=== PATIENT | female | born 1970 | race Caucasian/White ===

== ENCOUNTER 2022-11-21 15:08 | Outpatient (OUT) | payer OTHER, MEDICAID, SELFPAY ==
[2022-11-21 15:32] LABS: Bilirubin Urine NEGATIVE (NEGATIVE); Blood Urine TRACE-I (NEGATIVE); Clarity Urine CLEAR (CLEAR); Color Urine YELLOW (YELLOW); Glucose Urine UA NEGATIVE (NEGATIVE); Ketones Urine NEGATIVE (NEGATIVE); Leukocyte Esterase Urine NEGATIVE (NEGATIVE); Nitrite Urine NEGATIVE (NEGATIVE); Protein Urine NEGATIVE (NEG/TRACE); Urobilinogen Urine 0.2 EU/dL (0.2-1.0); pH Urine 6.5 (5.0-9.0)
[2022-11-21 15:37] LABS: Hematocrit 38.1 % (36.0-48.0); Hemoglobin 11.9 g/dL (12.0-16.0); Mean Corpuscular HGB Conc 31.2 g/dL (29.9-35.2); Mean Corpuscular Hemoglobin 27.9 pg (26.7-34.0); Mean Corpuscular Volume 89.2 fL (81.0-99.0); Mean Platelet Volume 10.5 fL (9.5-13.5); Platelet Count 267 10^3/uL (150-450); Red Blood Count 4.27 10^6/uL (4.20-5.40); Red Cell Distribution Width 14.2 % (11.0-15.0); White Blood Count 5.3 10^3/uL (4.0-11.0)
[2022-11-21 15:47] LABS: Protein Creatinine Ratio Urine 0.07; Total Protein Urine Random 12.6 mg/dL (<=11.9)
[2022-11-21 16:07] LABS: Percent Iron Saturation 10.5 %
[2022-11-21 16:09] LABS: Alanine Aminotransferase 32 U/L (14-59); Albumin Globulin Ratio 1.1; Alkaline Phosphatase 77 U/L (46-116); Aspartate Amino Transferase 23 U/L (15-37); BUN Creatinine Ratio 23.1; Bilirubin Total 0.2 mg/dL (0.2-1.0); Calcium 9.4 mg/dL (8.5-10.1); Carbon Dioxide 28.8 mmol/L (21.0-32.0); Chloride 109 mmol/L (98-107); Estimated GFR (African America 57 (>=60); Estimated GFR (Non-African Ame 47 (>=60); Globulin 3.5 g/dL; Glucose 105 mg/dL (74-106); Phosphorus 3.4 mg/dL (2.6-4.7); Potassium 3.8 mmol/L (3.5-5.1); Sodium 144 mmol/L (136-145); Total Protein 7.5 g/dL (6.4-8.2); Uric Acid 6.4 mg/dL (2.6-6.0)
[2022-11-22 11:09] LABS: PTH, Intact 22 pg/mL (15-65)
== END 2022-11-21 15:09 | disposition home or self-care (01) ==
LOC: LAB 15:12
PROVIDERS: PCP Nurse Practitioner; Visit Provider Internal Medicine Nephrology
DX: I12.9 Hypertensive chronic kidney disease with stage 1 through stage 4 chronic kidney disease, or unspecified chronic kidney disease (principal); N18.32 Chronic kidney disease, stage 3b; E11.21 Type 2 diabetes mellitus with diabetic nephropathy; R60.0 Localized edema; E78.5 Hyperlipidemia, unspecified
CPT/HCPCS: 36415; 80053; 81003; 82570; 82607; 82728; 82746; 83540; 83550; 83735; 83970; 84100; 84156; 84550; 85027

== ENCOUNTER 2022-11-25 09:57 | Outpatient (OUT) | payer OTHER, MEDICAID, SELFPAY ==
--- NOTE | 2022-11-25 10:03 | US_ITS ---
The [address] [address] Patient Name: SHARLENE HUMPHREYS MRN: [id number] date: 1970 Sex: F Assigned Patient Location: US Current Patient Location: US Accession/Order Number: [id number] Exam Date: 11/25/2022 10:05 Report Date: 11/25/2022 17:01 At the request of: AMNA VALLEJO Procedure: US renal BI Ultrasound kidneys, bilateral HISTORY: Chronic kidney disease stage 3 N18.32 COMPARISON: None. TECHNIQUE: Transabdominal ultrasound imaging of both kidneys was performed. FINDINGS: Right kidney demonstrates normal echogenicity with significant cortical thinning and scarring throughout. The right kidney measures 10.7 x 5.5 x 4.3 cm. There is no hydronephrosis of right kidney. The left kidney measures 11.3 x 5.3 x 6.0 cm. There is mild cortical lobulation and minimal scarring. No hydronephrosis of left kidney. No discrete renal lesion or renal stone is seen. The bladder is incompletely distended and suboptimally evaluated with prevoid volume at 103 cc. US/US renal BI IMPRESSION: 1. Significant cortical thinning and scarring of the right kidney, mild cortical lobulation and minimal scarring of left kidney. 2. Negative for hydronephrosis, structural renal lesion, or renal stone by ultrasound. 3. Incompletely distended bladder. Electronically authenticated by: BREANA PATTERSON Date: 11/25/2022 17:01
== END 2022-11-25 09:58 | disposition home or self-care (01) ==
LOC: US 09:57
PROVIDERS: PCP Nurse Practitioner; Visit Provider Internal Medicine Nephrology
DX: E78.2 Mixed hyperlipidemia (principal); I12.9 Hypertensive chronic kidney disease with stage 1 through stage 4 chronic kidney disease, or unspecified chronic kidney disease; N18.32 Chronic kidney disease, stage 3b; E11.21 Type 2 diabetes mellitus with diabetic nephropathy; R60.0 Localized edema
CPT/HCPCS: 36415; 76775; 80061

== ENCOUNTER 2022-11-25 10:29 | Outpatient (OUT) | payer OTHER, MEDICAID, SELFPAY ==
[2022-11-25 11:39] LABS: Chol HDL Ratio 3.3; Cholesterol 144 mg/dL (<=200); HDL Cholesterol 44 mg/dL (40-60); Triglycerides 153 mg/dL (<=150); VLDL CHOLESTEROL 30.6 mg/dL
== END 2022-11-25 10:30 | disposition home or self-care (01) ==
LOC: LAB 10:32
PROVIDERS: PCP Nurse Practitioner; Visit Provider Nurse Practitioner Acute Care
DX: E78.2 Mixed hyperlipidemia (principal)
CPT/HCPCS: 36415; 80061

== ENCOUNTER 2022-11-27 12:58 | Outpatient (OUT) | payer OTHER, MEDICAID, SELFPAY ==
--- NOTE | 2022-11-27 13:50 | CA_ITS ---
Patient Name Site Name SHARLENE HUMPHREYS The [facility] Account No Medical Record Number Age Sex Date Time [id number] [facility]:[id number] F 11/27/2022 13:12 At the Request Of JONATHAN SMALL ECHOCARDIOGRAM REPORT PROCEDURE: CA ECHO DOPPLER COMPLETE INDICATIONS: Shortness of breath COMPARISON: None. DESCRIPTION: COMPLETE ECHOCARDIOGRAM Real-time transthoracic echocardiography with 2D, M-mode, spectral and color flow Doppler performed. QUALITY: Technical quality was good. LEFT VENTRICLE: Moderate dilatation. Mild concentric left ventricular hypertrophy. Normal systolic function. LV EF: Estimated left ventricular ejection fraction is 65%. DIASTOLIC: Grade II diastolic dysfunction. ATRIAL SEPTUM: LEFT ATRIUM: Severe dilatation. RIGHT ATRIUM: Mild dilatation. RIGHT VENTRICLE: Mild dilatation. Normal right ventricular systolic function. TRICUSPID VALVE: Normal mobility and thickness. No stenosis with trivial regurgitation. Mild pulmonary hypertension. RVSP 40 mmHg MITRAL VALVE: Normal mobility and thickness. No evidence of mitral valve stenosis. There is no mitral annular calcification. Mild mitral regurgitation. AORTIC VALVE: Normal trileaflet appearance. No visible sclerosis. Normal leaflet mobility. No evidence of aortic valve stenosis. No aortic regurgitation. AORTIC ROOT: Normal diameter and appearance. Normal size ascending aorta measuring 3.6 cm. PULMONIC VALVE: Normal thickness and mobility. No stenosis. Trivial regurgitation. PERICARDIUM: Trivial pericardial effusion. IVC: Collapses with inspirations. Normal size. PLEURA: CONCLUSION: 1. Mild concentric left ventricular hypertrophy with normal systolic function. LVEF is 65%. 2. Grade 2 diastolic dysfunction. 3. Mildly dilated right ventricle with normal systolic function. 4. Mild mitral regurgitation. 5. Mildly elevated right-sided pressures. Adult Echocardiography Procedure Report Left Ventricle LVEDD (3.7 - 5.6 cm): 6.37 cm LVESD (2.2 - 4.0 cm): 3.89 cm LVIVS thickness (0.6 - 1.2 cm): 1.12 cm LVPW thickness (0.5 - 1.0 cm): 1.09 cm e': 0.08 m/s E - e': 15.19 LVOT Max Gradient: 5.90 mm[Hg] LVOT Area (cm2): 1.21 m/s Peak Velocity (LVOT): 1.21 m/s Mean Velocity (LVOT): 0.85 m/s LVOT Diameter 2.00 cm Left Ventricular Ejection Fraction: 65 % Left Atrium LA Volume Index (2D A2C): 56.92 ml/m2 Left Atrium Systolic Dimension: 4.86 cm Mitral Valve MV E to A Ratio: 1.15 Mitral Valve A-Wave Peak Velocity: 1.06 m/s Mitral Valve E-Wave Peak Velocity: 1.22 m/s Right Ventricle RV Internal Diastolic Dimension: 4.31 cm Aorta AO Root Diam: 3.05 cm Ascending Ao Diam: 3.63 cm Aortic Valve AoV Area (Peak Gabo): 1.88 cm2, 1.88 cm2 AoV Area (VTI): 1.87 cm2, 1.87 cm2 Peak Velocity(Antegrade Flow): 2.03 m/s Peak Gradient(Antegrade Flow): 16.48 mm[Hg] Mean Velocity(Antegrade Flow): 1.37 m/s Mean Gradient(Antegrade Flow): 8.66 mm[Hg] Velocity Time Integral: 52.84 cm Tricuspid Valve Peak Velocity (Regurgitant Flow): 3.25 m/s, 2.64 m/s, 2.87 m/s, 3.04 m/s Pulmonic Valve Mean Gradient: 3.17 mm[Hg], 3.37 mm[Hg] Mean Velocity: 0.84 m/s, 0.86 m/s Peak Velocity: 1.19 m/s Peak Gradient: 5.41 mm[Hg], 5.92 mm[Hg] Right Atrium Right Atrium Systolic Pressure: 37.79 ml, 37.79 ml Dictated by: Altaf Krishnan M.D. on 11/27/2022 at 19:00 Approved by: Altaf Krishnan M.D. on 11/27/2022 at 19:16
== END 2022-11-27 12:59 | disposition home or self-care (01) ==
LOC: CARD 12:59
PROVIDERS: PCP Nurse Practitioner; Visit Provider Nurse Practitioner Acute Care
DX: R06.02 Shortness of breath (principal); I34.0 Nonrheumatic mitral (valve) insufficiency
CPT/HCPCS: 93306

== ENCOUNTER 2022-12-13 07:27 | Outpatient (OUT) | payer OTHER, MEDICAID, SELFPAY ==
[2022-12-13 11:17] LABS: Estimated Average Glucose 134 mg/dL; Glycohemoglobin A1C 6.3 % (4.5-6.2)
== END 2022-12-13 07:28 | disposition home or self-care (01) ==
PROVIDERS: PCP Nurse Practitioner; Visit Provider Nurse Practitioner
DX: E11.9 Type 2 diabetes mellitus without complications (principal)
CPT/HCPCS: 36415; 83036

== ENCOUNTER 2022-12-13 07:30 | Outpatient (OUT) | payer OTHER, MEDICAID, SELFPAY ==
[2022-12-13 11:13] LABS: Anion Gap 14.8; BUN Creatinine Ratio 26.3; Calcium 9.4 mg/dL (8.5-10.1); Carbon Dioxide 25.5 mmol/L (21.0-32.0); Chloride 104 mmol/L (98-107); Estimated GFR (African America 51 (>=60); Estimated GFR (Non-African Ame 42 (>=60); Glucose 110 mg/dL (74-106); Potassium 3.3 mmol/L (3.5-5.1); Sodium 141 mmol/L (136-145)
== END 2022-12-13 07:31 | disposition home or self-care (01) ==
PROVIDERS: PCP Nurse Practitioner; Visit Provider Nurse Practitioner Acute Care
DX: E11.9 Type 2 diabetes mellitus without complications (principal); I10 Essential (primary) hypertension
CPT/HCPCS: 36415; 80048; 83036

== ENCOUNTER 2022-12-18 21:58 | Emergency (ER) | payer OTHER, MEDICAID, SELFPAY ==
[2022-12-18 22:02] VITALS: BP 124/42; PULSE 58; RESP 18; TEMP 36.6; O2SAT 97; BMI 51.5
--- NOTE | 2022-12-18 22:02 | ED.LOWEXI1 ---
HPI - Extremity Injury (Lower) General Chief Complaint: Extremity Injury, Lower Stated Complaint: hip pain Time Seen by Provider: 12/18/22 22:02 History of Present Illness HPI Narrative: Patient presents to the emergency department complaining of right hip pain. Patient states she developed right hip pain 2 weeks ago. It has been getting worse. Saw her primary care doctor and was prescribed Percocet. She ran out of Percocet today. She states she is able to bear weight but the pain worsens when she bears weight. Pain at times radiates in the posterior hip into the groin. She denies any paresthesias, or weakness. She denies any urinary, bowel incontinence, retention. Patient states she had back surgery one year ago and at that time the pain was radiating down her right leg and this feels different. Patient denies any trauma. Related Data Home Medications Medication Instructions Recorded Confirmed amlodipine 10 mg tablet 10 mg PO QDAY 12/18/22 12/18/22 aripiprazole 10 mg tablet 10 mg PO QDAY 12/18/22 12/18/22 aspirin 81 mg chewable tablet 81 mg PO QDAY 12/18/22 12/18/22 atorvastatin 80 mg tablet 80 mg PO QDAY 12/18/22 12/18/22 buspirone 30 mg tablet 30 mg PO BID 12/18/22 12/18/22 cariprazine 6 mg capsule (Vraylar) 6 mg PO Q24H 12/18/22 12/18/22 escitalopram oxalate 20 mg tablet 20 mg PO QDAY 12/18/22 12/18/22 fenofibrate nanocrystallized 145 145 mg PO QDAY 12/18/22 12/18/22 mg tablet furosemide 20 mg tablet 40 mg PO QDAY 12/18/22 12/18/22 gabapentin 600 mg tablet 600 mg PO QDAY PRN neuromuscular 12/18/22 12/18/22 blockade isosorbide mononitrate 30 mg 30 mg PO QDAY 12/18/22 12/18/22 tablet,extended release 24 hr lamotrigine 200 mg tablet 200 mg PO QDAY 12/18/22 12/18/22 lamotrigine 25 mg tablet 50 mg PO QDAY 12/18/22 12/18/22 metoprolol succinate 25 mg 12.5 mg PO QDAY 09/04/23 09/04/23 tablet,extended release 24 hr pioglitazone 45 mg tablet 45 mg PO QDAY 12/18/22 12/18/22 sacubitril 49 mg-valsartan 51 mg 1 tab PO BID 12/18/22 12/18/22 tablet (Entresto) spironolactone 25 mg tablet 25 mg PO QDAY 12/18/22 12/18/22 tizanidine 4 mg tablet 4 mg PO Q8H PRN muscle spasticity 12/18/22 12/18/22 Previous Rx's Medication Instructions Recorded oxycodone-acetaminophen 5 mg-325 1 tab PO DAILY PRN pain 5 days #10 12/18/22 mg tablet (Percocet) tabs Allergies Allergy/AdvReac Type Severity Reaction Status Date / Time Sulfa (Sulfonamide Allergy Mild Hives Verified 12/18/22 22:08 Antibiotics) prochlorperazine AdvReac Intermediate Agitated Verified 12/18/22 22:08 [From Compazine] promethazine [From Phenergan] AdvReac Intermediate Agitated Verified 12/18/22 22:08 sulfamethoxazole AdvReac Mild Hives Verified 12/18/22 22:08 [From Bactrim] trimethoprim [From Bactrim] AdvReac Mild Hives Verified 12/18/22 22:08 Review of Systems ROS Status of ROS 10 or more systems reviewed and unremarkable except as noted in history and below Exam Narrative Exam Narrative: Nurses notes and vital signs reviewed and patient is not hypoxic. General: Nontoxic, Well-appearing and in no apparent distress. Skin: Warm, dry, no pallor noted. No Rash Head: Normocephalic, atraumatic. Neck: Supple, non-tender. Eye: Pupils are equal, round and EOMI. No scleral icterus. Ears, Nose, Mouth, and Throat: TM clear, no posterior oropharynx erythema or nasal mucosal hypertrophy, uvula is mid-line Oral mucosa is moist Cardiovascular: Regular Rate and Rhythm without murmur, gallop or rub. Respiratory: No accessory muscle use or respiratory distress. Lungs are clear to auscultation, no wheezing, rales or rhonchi Chest Wall: no tenderness Back: No midline thoracic or lumbar vertebral tenderness. No CVA tenderness Musculoskeletal: No erythema, or ecchymosis noted. normal ROM, no calf or popliteal tenderness, no lower extremity edema/swelling GI: obese, Abdomen is soft, non-distended. Normal bowel sounds. No masses appreciated. No tenderness to palpation. No rebound, guarding, or rigidity noted. Neurological: A&O x4. No cranial nerve dysfunction observed. No truncal ataxia. Moves all extremities. Sensation intact. Psychiatric: Cooperative and interactive. Normal mood and affect. MDM - Extremity Injury (Lower) MDM Narrative Medical decision making narrative: Right hip x-rays are unremarkable. Patient is given Percocet. She ran out of them. Orders was checked and is adequate. The results discussed with patient. Patient will be given a prescription for Percocet and she will follow up with her primary care doctor in the morning. At this time the patient is without objective evidence of an acute process requiring hospitalization or inpatient management. The patient has remained hemodynamically stable. No additional indication for emergent studies at this time. I answered all questions. Discussed discharge instructions including standard anticipatory guidance and what should prompt a return to the emergency department, including if they get worse are not getting better or develops any new or concerning symptoms. I've given them specific time frame in which to follow-up, and who to follow-up with. The patient demonstrates understanding. Patient is nontoxic and stable for discharge with outpatient follow-up. This note was created with the assistance of a speech recognition program. Although the intention is to generate documents that actually reflects the content of the visit, no guarantees can be provided that every mistake has been identified and corrected by editing. Discharge Plan Discharge Chief Complaint: Extremity Injury, Lower Clinical Impression: Acute pain of right hip Patient Disposition: Home, Self-Care Time of Disposition Decision: 23:33 Condition: Good Mode of Transportation: Private Vehicle Prescriptions / Home Meds: New oxycodone-acetaminophen [Percocet] 5-325 mg tablet 1 tab PO DAILY PRN (Reason: pain) 5 Days Qty: 10 0RF No Action amlodipine 10 mg tablet 10 mg PO QDAY aripiprazole 10 mg tablet 10 mg PO QDAY aspirin 81 mg tablet,chewable 81 mg PO QDAY atorvastatin 80 mg tablet 80 mg PO QDAY buspirone 30 mg tablet 30 mg PO BID escitalopram oxalate 20 mg tablet 20 mg PO QDAY Vraylar 6 mg capsule 6 mg PO Q24H lamotrigine 200 mg tablet 200 mg PO QDAY Rx Instructions: Take with 2 25mg tablets for total of 250g lamotrigine 25 mg tablet 50 mg PO QDAY fenofibrate nanocrystallized 145 mg tablet 145 mg PO QDAY furosemide 20 mg tablet 40 mg PO QDAY gabapentin 600 mg tablet 600 mg PO QDAY PRN (Reason: neuromuscular blockade) isosorbide mononitrate 30 mg tablet extended release 24 hr 30 mg PO QDAY metoprolol succinate 25 mg tablet extended release 24 hr 12.5 mg PO QDAY pioglitazone 45 mg tablet 45 mg PO QDAY Entresto 49-51 mg tablet 1 tab PO BID spironolactone 25 mg tablet 25 mg PO QDAY tizanidine 4 mg tablet 4 mg PO Q8H PRN (Reason: muscle spasticity) Instructions: Hip Pain (ED) Stand Alone Forms: Portal Instructions Referrals: Janene Lew [Primary Care Provider] - 1 week
--- NOTE | 2022-12-18 22:18 | XR_ITS ---
The [address] [address] Patient Name: SHARLENE HUMPHREYS MRN: [id number] date: 1970 Sex: F Assigned Patient Location: ER Current Patient Location: ER Accession/Order Number: [id number] Exam Date: 12/18/2022 22:35 Report Date: 12/18/2022 22:48 At the request of: DOLORES CLARK Procedure: XR hip RT min 2V EXAM: XR hip RT min 2V HISTORY: pain COMPARISON: None. TECHNIQUE: 2 views of the right hip were obtained. FINDINGS: No acute fracture or dislocation is seen. The right femoral head is well-seated in the acetabulum. There are mild degenerative changes of the right sacroiliac joint and right hip joint. The pubic symphysis is preserved. XR/XR hip RT min 2V IMPRESSION: 1. Mild degenerative changes of the right hip with no acute osseous abnormality is seen. If there is concern for an occult injury, cross-sectional imaging is recommended. Electronically authenticated by: Cassy GREEN Date: 12/18/2022 22:48
== END 2022-12-19 00:13 | disposition home or self-care (01) ==
PROVIDERS: Emergency Provider Emergency Medicine; PCP Nurse Practitioner
DX: M25.551 Pain in right hip (principal); Z79.899 Other long term (current) drug therapy; Z79.82 Long term (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
CPT/HCPCS: 73502; 99283

== ENCOUNTER 2023-01-01 10:06 | Outpatient (OUT) | payer OTHER, MEDICAID, SELFPAY ==
--- NOTE | 2023-01-01 12:28 | P.CN_ITS ---
Consult Note: HPI Data of Consult Patient: new to practice Consult date: 01/01/23 Requesting Physician: Elza Conway MD Primary Care Provider: Janene Lew Consult Narrative Reason for consult: low back, thigh pain Narrative: pleasant 52yof who presents for evaluation. increasing low back pain with radia tion into groin and thigh. imaging reviewed, which is significant for disc bulging at t12-l1 with resultant moderate stenosis. engages in >6 week course of provider directed home exercises, with limited benefit. underwent two previous discectomies, with little relief. neurosurgeon does not recommend further surgery. was advised to consider scs. utilizes gabapentin and percocet. denies adverse med side effects. cc:: CC: Elza Conway MD Review of Systems ROS Status of ROS 10 or more systems reviewed and unremarkable except as noted in history and below Meds Home Medications and Allergies Home Medications Medication Instructions Recorded Confirmed Type amlodipine 10 mg tablet 10 mg PO QDAY 12/18/22 01/01/23 History aripiprazole 10 mg tablet 10 mg PO QDAY 12/18/22 01/01/23 History aspirin 81 mg chewable tablet 81 mg PO QDAY 12/18/22 01/01/23 History atorvastatin 80 mg tablet 80 mg PO QDAY 12/18/22 01/01/23 History buspirone 30 mg tablet 30 mg PO BID 12/18/22 12/18/22 History cariprazine 6 mg capsule (Vraylar) 6 mg PO Q24H 12/18/22 01/01/23 History escitalopram oxalate 20 mg tablet 20 mg PO QDAY 12/18/22 01/01/23 History fenofibrate nanocrystallized 145 145 mg PO QDAY 12/18/22 01/01/23 History mg tablet furosemide 20 mg tablet 40 mg PO QDAY 12/18/22 01/01/23 History gabapentin 600 mg tablet 600 mg PO QDAY PRN neuromuscular 12/18/22 01/01/23 History blockade isosorbide mononitrate 30 mg 30 mg PO QDAY 12/18/22 01/01/23 History tablet,extended release 24 hr lamotrigine 200 mg tablet 200 mg PO QDAY 12/18/22 01/01/23 History lamotrigine 25 mg tablet 50 mg PO QDAY 12/18/22 01/01/23 History metoprolol succinate 25 mg 12.5 mg PO QDAY 12/18/22 01/01/23 History tablet,extended release 24 hr oxycodone-acetaminophen 5 mg-325 1 tab PO DAILY PRN pain 5 days #10 12/18/22 Rx mg tablet (Percocet) tabs pioglitazone 45 mg tablet 45 mg PO QDAY 12/18/22 01/01/23 History sacubitril 49 mg-valsartan 51 mg 1 tab PO BID 12/18/22 01/01/23 History tablet (Entresto) spironolactone 25 mg tablet 25 mg PO QDAY 12/18/22 01/01/23 History tizanidine 4 mg tablet 4 mg PO Q8H PRN muscle spasticity 12/18/22 01/01/23 History cetirizine 10 mg tablet (Zyrtec) 10 mg PO DAILY PRN allergy symptoms 01/01/23 01/01/23 History diazepam 10 mg tablet (Valium) 10 mg PO ONCE PRN sedation #1 tab 01/01/23 Rx ferrous sulfate 134 mg (27 mg 134 mg PO DAILY 01/01/23 01/01/23 History iron) tablet (High Potency Iron) oxycodone-acetaminophen 5 mg-325 1 tab PO BID PRN pain #60 tabs 01/01/23 Rx mg tablet (Percocet) Allergies Allergy/AdvReac Type Severity Reaction Status Date / Time Sulfa (Sulfonamide Allergy Mild Hives Verified 12/18/22 22:08 Antibiotics) prochlorperazine AdvReac Intermediate Agitated Verified 12/18/22 22:08 [From Compazine] promethazine [From Phenergan] AdvReac Intermediate Agitated Verified 12/18/22 22:08 sulfamethoxazole AdvReac Mild Hives Verified 12/18/22 22:08 [From Bactrim] trimethoprim [From Bactrim] AdvReac Mild Hives Verified 12/18/22 22:08 Exam Narrative Exam Narrative: Psych-alert and oriented x 3. Attentive and appropriate, constitutionally normal, displays normal mood and affect per situation. There are no obvious deficits in memory, reasoning, or intellect.? Skin-no obvious rashes, bruising, erythema noted to the patient's area of pain.? Extremities- extremities are warm with minimal edema and palpable pulses. Thoracic-tenderness to palpation noted in the thoracic spine and paraspinal musculature. Pain is elicited with flexion, extension, and lateral rotation of the lumbar spine. Range of motion is diminished with these motions. Facet loading maneuvers are positive.? Strength-noted to be unremarkable Sensory-no notable sensory deficits in the bilateral lower extremities to touch or pinprick in all dermatomal distributions with the exception to decreased sensation to the bilateral T12, L1 dermatomal distribution Coordination remains intact.? Gait remains non-antalgic Assessment and Plan Assessment and Plan (1) Thoracic stenosis: (2) Thoracic radiculopathy: (3) Lumbar spondylosis: Plan pleasant 52yof who presents for evaluation. failed conservative measures, as noted above. imaging reviewed, as noted above. given imaging and symptoms, prudent to attempt bilateral T12-L1 transforaminal epidural steroid injection under fluoroscopic guidance to provide analgesia. she is in agreement. medications reviewed. agreed to fill percocet. follow up after procedure.
--- NOTE | 2023-02-15 11:06 | PM.CN ---
Consult Note: HPI Data of Consult Patient: known to practice within the last 3 years Requesting Physician: Elza Conway MD Primary Care Provider: Janene Lew Consult Narrative cc:: CC: Elza Conway MD Review of Systems ROS Status of ROS 10 or more systems reviewed and unremarkable except as noted in history and below Meds Home Medications and Allergies Home Medications Medication Instructions Recorded Confirmed Type amlodipine 10 mg tablet 10 mg PO QDAY 12/18/22 01/01/23 History aripiprazole 10 mg tablet 10 mg PO QDAY 12/18/22 01/01/23 History aspirin 81 mg chewable tablet 81 mg PO QDAY 12/18/22 01/01/23 History atorvastatin 80 mg tablet 80 mg PO QDAY 12/18/22 01/01/23 History buspirone 30 mg tablet 30 mg PO BID 12/18/22 12/18/22 History cariprazine 6 mg capsule (Vraylar) 6 mg PO Q24H 12/18/22 01/01/23 History escitalopram oxalate 20 mg tablet 20 mg PO QDAY 12/18/22 01/01/23 History fenofibrate nanocrystallized 145 145 mg PO QDAY 12/18/22 01/01/23 History mg tablet furosemide 20 mg tablet 40 mg PO QDAY 12/18/22 01/01/23 History gabapentin 600 mg tablet 600 mg PO QDAY PRN neuromuscular 12/18/22 01/01/23 History blockade isosorbide mononitrate 30 mg 30 mg PO QDAY 12/18/22 01/01/23 History tablet,extended release 24 hr lamotrigine 200 mg tablet 200 mg PO QDAY 12/18/22 01/01/23 History lamotrigine 25 mg tablet 50 mg PO QDAY 12/18/22 01/01/23 History metoprolol succinate 25 mg 12.5 mg PO QDAY 12/18/22 01/01/23 History tablet,extended release 24 hr oxycodone-acetaminophen 5 mg-325 1 tab PO DAILY PRN pain 5 days #10 12/18/22 Rx mg tablet (Percocet) tabs pioglitazone 45 mg tablet 45 mg PO QDAY 12/18/22 01/01/23 History sacubitril 49 mg-valsartan 51 mg 1 tab PO BID 12/18/22 01/01/23 History tablet (Entresto) spironolactone 25 mg tablet 25 mg PO QDAY 12/18/22 01/01/23 History tizanidine 4 mg tablet 4 mg PO Q8H PRN muscle spasticity 12/18/22 01/01/23 History cetirizine 10 mg tablet (Zyrtec) 10 mg PO DAILY PRN allergy symptoms 01/01/23 01/01/23 History diazepam 10 mg tablet (Valium) 10 mg PO ONCE PRN sedation #1 tab 01/01/23 Rx ferrous sulfate 134 mg (27 mg 134 mg PO DAILY 01/01/23 01/01/23 History iron) tablet (High Potency Iron) oxycodone-acetaminophen 5 mg-325 1 tab PO BID PRN pain #60 tabs 01/01/23 Rx mg tablet (Percocet) oxycodone-acetaminophen 5 mg-325 1 tab PO BID PRN pain #60 tabs 01/31/23 Rx mg tablet (Percocet) Allergies Allergy/AdvReac Type Severity Reaction Status Date / Time Sulfa (Sulfonamide Allergy Mild Hives Verified 12/18/22 22:08 Antibiotics) prochlorperazine AdvReac Intermediate Agitated Verified 12/18/22 22:08 [From Compazine] promethazine [From Phenergan] AdvReac Intermediate Agitated Verified 12/18/22 22:08 sulfamethoxazole AdvReac Mild Hives Verified 12/18/22 22:08 [From Bactrim] trimethoprim [From Bactrim] AdvReac Mild Hives Verified 12/18/22 22:08 Exam Constitutional Documenting provider has reviewed patient's vital signs: yes Common normals: no apparent distress, oriented x3, healthy appearing, alert and well nourished General appearance: cooperative [facility] Common normals: normocephalic, hearing grossly normal bilaterally and moist oral mucous membranes Head and scalp: normocephalic Eye Common normals: PERRL Pupil: PERRL Neck & C-Spine Common normals: full ROM General: normal visual inspection Chest Common normals: inspection of chest normal Respiratory Common normals: normal respiratory effort, no retractions and no use of accessory muscles Neuro Common normals: oriented x3, CN's II-XII intact bilaterally, moves all extremities, no focal motor deficits, no sensory deficits noted and deep tendon reflexes 2+ bilaterally Sensorium/orientation: alert Motor exam: strength 5/5 throughout and no movement abnormalities noted Psych Common normals: mental status grossly normal, thought process normal, cooperative, affect normal, speech normal and activity/motor behavior normal Speech: normal speech Thought process: normal thought process Results Additional Findings Additional findings: I have checked an [place] report on this patient today and there are no aberrancies noted in the prescribing history.?? A drug screen was completed and reviewed within the last year, and if there has not been a drug screen completed we ordered one today to monitor higher risk, state monitored pain medication use. As part of providing excellent, safe, comprehensive care, the following was completed at our patient's visit: 1. A medication reconciliation and review to ensure accurate knowledge of current/active medications, including asking our patients to inform us about any [id number] medications or herbal remedies/nutritional supplements/alternative remedies. 2. A review to specifically ensure our patients have had annual screening for: elevated body mass index (BMI), tobacco use, screening for depression, and screening for unhealthy alcohol use. When screening is concerning, patients are provided with education and the specific recommendation to discuss the concerning health issue and treatment options with their primary care provider. Assessment and Plan Assessment and Plan (1) Thoracic stenosis: (2) Thoracic radiculopathy: (3) Lumbar spondylosis:
== END 2023-01-01 10:07 | disposition home or self-care (01) ==
PROVIDERS: PCP Nurse Practitioner; Visit Provider Anesthesiology
DX: M47.24 Other spondylosis with radiculopathy, thoracic region (principal); M48.04 Spinal stenosis, thoracic region
CPT/HCPCS: G0463

== ENCOUNTER 2023-02-01 11:16 | Outpatient (OUT) | payer OTHER, SELFPAY ==
[2023-02-01 11:44] LABS: Hematocrit 38.1 % (36.0-48.0); Hemoglobin 12.3 g/dL (12.0-16.0); Mean Corpuscular HGB Conc 32.3 g/dL (29.9-35.2); Mean Corpuscular Hemoglobin 29.2 pg (26.7-34.0); Mean Corpuscular Volume 90.5 fL (81.0-99.0); Mean Platelet Volume 10.6 fL (9.5-13.5); Platelet Count 283 10^3/uL (150-450); Red Blood Count 4.21 10^6/uL (4.20-5.40); Red Cell Distribution Width 14.7 % (11.0-15.0)
[2023-02-01 11:48] LABS: Erythrocyte Sedimentation Rate 7 mm/hr (<=30)
[2023-02-01 12:04] LABS: Alanine Aminotransferase 32 U/L (14-59); Albumin Globulin Ratio 1.3; Albumin Level 4.1 g/dL (3.4-5.0); Alkaline Phosphatase 85 U/L (46-116); Anion Gap 13.1; Aspartate Amino Transferase 25 U/L (15-37); BUN Creatinine Ratio 27.9; Bilirubin Direct 0.1 mg/dL (0.0-0.2); Bilirubin Total 0.3 mg/dL (0.2-1.0); Calcium 9.5 mg/dL (8.5-10.1); Carbon Dioxide 28.2 mmol/L (21.0-32.0); Chloride 104 mmol/L (98-107); Estimated GFR (African America 53 (>=60); Estimated GFR (Non-African Ame 43 (>=60); Globulin 3.1 g/dL; Glucose 130 mg/dL (74-106); Potassium 5.3 mmol/L (3.5-5.1); Sodium 140 mmol/L (136-145); Total Protein 7.2 g/dL (6.4-8.2)
== END 2023-02-01 11:17 | disposition home or self-care (01) ==
LOC: LAB 11:17
PROVIDERS: PCP Nurse Practitioner; Visit Provider Nurse Practitioner
DX: R42 Dizziness and giddiness (principal)
CPT/HCPCS: 36415; 80048; 80076; 85027; 85652

== ENCOUNTER 2023-02-09 12:50 | Outpatient (OUT) | payer OTHER, SELFPAY ==
[2023-02-09 14:34] LABS: Anion Gap 11.9; BUN Creatinine Ratio 25.5; Calcium 9.3 mg/dL (8.5-10.1); Carbon Dioxide 27.5 mmol/L (21.0-32.0); Chloride 104 mmol/L (98-107); Estimated GFR (African America 49 (>=60); Estimated GFR (Non-African Ame 40 (>=60); Glucose 167 mg/dL (74-106); Potassium 4.4 mmol/L (3.5-5.1); Sodium 139 mmol/L (136-145)
== END 2023-02-09 12:51 | disposition home or self-care (01) ==
LOC: LAB 12:51
PROVIDERS: PCP Nurse Practitioner; Visit Provider Nurse Practitioner
DX: E87.5 Hyperkalemia (principal)
CPT/HCPCS: 36415; 80048

== ENCOUNTER 2023-02-19 10:11 | Day surgery (SDC) | payer OTHER, SELFPAY ==
[2023-02-19 11:08] VITALS: BP 144/86; PULSE 59; RESP 14; TEMP 36.7; O2SAT 98
[2023-02-19 11:16] LABS: Glucometer 142 mg/dL (74-106)
[2023-02-19] MEDS: 0.9 % SODIUM CHLORIDE 10 ML INJ (11:28)
[2023-02-19] MEDS: DEXAMETHASONE SOD PHOS 10 MG/ML VIAL INJ (11:28)
[2023-02-19] MEDS: IOHEXOL 240 MG/ML - 10 ML VIAL INJ (11:28)
[2023-02-19] MEDS: BUPIVACAINE HCL 0.25% PF 25 MG/10 ML VIAL INJ (11:28)
[2023-02-19] MEDS: LIDOCAINE HCL 2% PF 100 MG/5 ML VIAL INJ (11:28)
[2023-02-19 11:30] VITALS: BP 156/77; BP 165/84; PULSE 54; PULSE 56; RESP 18; O2SAT 99
--- NOTE | 2023-02-19 11:30 | W.PM.PROCNOT ---
Date of procedure: 02/19/23 Pre-op diagnosis: M54.14 Post-op diagnosis: same as pre-op Procedure: Procedure: Bilateral T12-L1 transforaminal epidural steroid injection Medications: Bupivacaine 0.5% 2cc, dexamethasone 10mg The patient was seen and examined in the preoperative holding area.? Informed consent was obtained and placed on the chart.? Patient was brought to the medical procedure unit and placed in the prone position where a timeout was completed verifying the correct patient, procedure site, position, and planned special equipment using sterile aseptic technique.? Under direct fluoroscopic visualization a 25-gauge Quincke tipped spinal needle was advanced at level left T12-L1 to the designated neural foramen where contrast dye was injected to show adequate spread.? There was no evidence of vascular or adverse uptake.? Epidural spread was appreciated.? The above-mentioned injectate was then placed in a 1.5 mL aliquot preceded by negative aspiration.? The needle was removed. The same procedure, at the same level, was completed on the opposite side. ? Patient was taken to the postprocedural recovery area and monitored for an appropriate length of time before found suitable for discharge in the accompaniment of a responsible adult. Anesthesia: Local Surgeon: Elza Conway Pathology: none sent Condition: stable Disposition: no change
== END 2023-02-19 11:35 | disposition home or self-care (01) ==
PROVIDERS: PCP Nurse Practitioner; Visit Provider Anesthesiology
DX: M54.14 Radiculopathy, thoracic region (principal); Z79.82 Long term (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; Z79.899 Other long term (current) drug therapy; Z79.84 Long term (current) use of oral hypoglycemic drugs
CPT/HCPCS: 36415; 64479; 82948; J1100; Q9966

== ENCOUNTER 2023-03-01 11:33 | Outpatient (OUT) | payer OTHER, SELFPAY ==
--- NOTE | 2023-03-01 11:58 | P.CN_ITS ---
Consult Note: HPI Data of Consult Patient: known to practice within the last 3 years Consult date: 01/01/23 Requesting Physician: Becca Meneses NP Primary Care Provider: Janene Lew Consult Narrative Reason for consult: f/u Narrative: pleasant [id number] who presents for evaluation. increasing low back pain with radi ation into groin and thigh. imaging reviewed, which is significant for disc bulging at t12-l1 with resultant moderate stenosis. engages in >6 week course of provider directed home exercises, with limited benefit. underwent two previous discectomies, with little relief. neurosurgeon does not recommend further surgery. was advised to consider scs. utilizes gabapentin and percocet. denies adverse med side effects. Patient underwent T12 L1 TFESI with 0% relief of symptoms. Today pain 8/10 in right middle back, bilateral buttock, bilateral low back, feels like a burning fire sensation. cc:: CC: Becca Meneses NP Review of Systems ROS Status of ROS 10 or more systems reviewed and unremarkable except as noted in history and below Meds Home Medications and Allergies Home Medications Medication Instructions Recorded Confirmed Type amlodipine 10 mg tablet 10 mg PO QDAY 12/18/22 02/19/23 History aripiprazole 10 mg tablet 10 mg PO QDAY 12/18/22 02/19/23 History aspirin 81 mg chewable tablet 81 mg PO QDAY 12/18/22 02/19/23 History atorvastatin 80 mg tablet 80 mg PO QDAY 12/18/22 02/19/23 History buspirone 30 mg tablet 30 mg PO BID 12/18/22 02/19/23 History cariprazine 6 mg capsule (Vraylar) 6 mg PO Q24H 12/18/22 02/19/23 History escitalopram oxalate 20 mg tablet 20 mg PO QDAY 12/18/22 02/19/23 History fenofibrate nanocrystallized 145 145 mg PO QDAY 12/18/22 02/19/23 History mg tablet furosemide 20 mg tablet 40 mg PO QDAY 12/18/22 02/19/23 History gabapentin 600 mg tablet 600 mg PO QDAY PRN neuromuscular 12/18/22 02/19/23 History blockade isosorbide mononitrate 30 mg 30 mg PO QDAY 12/18/22 02/19/23 History tablet,extended release 24 hr lamotrigine 200 mg tablet 200 mg PO QDAY 12/18/22 02/19/23 History lamotrigine 25 mg tablet 50 mg PO QDAY 12/18/22 02/19/23 History metoprolol succinate 25 mg 12.5 mg PO QDAY 12/18/22 02/19/23 History tablet,extended release 24 hr oxycodone-acetaminophen 5 mg-325 1 tab PO DAILY PRN pain 5 days #10 12/18/22 02/19/23 Rx mg tablet (Percocet) tabs pioglitazone 45 mg tablet 45 mg PO QDAY 12/18/22 02/19/23 History sacubitril 49 mg-valsartan 51 mg 1 tab PO BID 12/18/22 02/19/23 History tablet (Entresto) spironolactone 25 mg tablet 25 mg PO QDAY 12/18/22 02/19/23 History tizanidine 4 mg tablet 4 mg PO Q8H PRN muscle spasticity 12/18/22 02/19/23 History cetirizine 10 mg tablet (Zyrtec) 10 mg PO DAILY PRN allergy symptoms 01/01/23 02/19/23 History diazepam 10 mg tablet (Valium) 10 mg PO ONCE PRN sedation #1 tab 01/01/23 02/19/23 Rx ferrous sulfate 134 mg (27 mg 134 mg PO DAILY 01/01/23 02/19/23 History iron) tablet (High Potency Iron) oxycodone-acetaminophen 5 mg-325 1 tab PO BID PRN pain #60 tabs 01/01/23 02/19/23 Rx mg tablet (Percocet) oxycodone-acetaminophen 5 mg-325 1 tab PO BID PRN pain #60 tabs 01/31/23 02/19/23 Rx mg tablet (Percocet) Allergies Allergy/AdvReac Type Severity Reaction Status Date / Time Sulfa (Sulfonamide Allergy Mild Hives Verified 12/18/22 22:08 Antibiotics) prochlorperazine AdvReac Intermediate Agitated Verified 12/18/22 22:08 [From Compazine] promethazine [From Phenergan] AdvReac Intermediate Agitated Verified 12/18/22 22:08 sulfamethoxazole AdvReac Mild Hives Verified 12/18/22 22:08 [From Bactrim] trimethoprim [From Bactrim] AdvReac Mild Hives Verified 12/18/22 22:08 Exam Narrative Exam Narrative: Psych-alert and oriented x 3. Attentive and appropriate, constitutionally normal, displays normal mood and affect per situation. There are no obvious deficits in memory, reasoning, or intellect.? Skin-no obvious rashes, bruising, erythema noted to the patient's area of pain.? Extremities- extremities are warm with minimal edema and palpable pulses. Thoracic-tenderness to palpation noted in the thoracic spine and paraspinal musculature. Pain is elicited with flexion, extension, and lateral rotation of the lumbar spine. Range of motion is diminished with these motions. Facet loading maneuvers are positive.? Strength-noted to be unremarkable Sensory-no notable sensory deficits in the bilateral lower extremities to touch or pinprick in all dermatomal distributions with the exception to decreased sensation to the bilateral T12, L1 dermatomal distribution Coordination remains intact.? Gait remains non-antalgic Assessment and Plan Assessment and Plan (1) Thoracic radiculopathy: (2) Thoracic stenosis: (3) Chronic prescription opiate use: Assessment and Plan: I have refilled the patient's opioid prescriptions at the above noted dose and schedule.? I feel these medications are improving the patient's quality of life and allow them to tolerate activities of daily living as well as participate in recreational activity.? The patient does not report intolerable side effects. The patient is NOT opioid naive and non-pharmacologic and non-opioid treatment has failed to significantly relieve the patient's pain and improve functionality. The patient has a diagnosis that is related to a somatic or visceral pain etiology. ? ?? I reviewed with the patient the potential risks and side effects with the use of? opioid medications including but not limited to respiratory depression,? sedation, and even . I verified the patient has access to naloxone should? these effects occur. I advised the patient to avoid the use of any other? sedation substances including alcohol, THC, and benzodiazepines while? taking opioid medications due to the risk of compounding side effects and? detrimental outcomes. I reviewed the [employer], pain treatment agreement, urine? drug screen, and opioid start talking forms. The patient was advised to let? their family know they had Naloxone in case they would need to administer? the medication.? ?? A drug screen was completed within the last year, and no aberrancies were noted regarding their use of controlled substances. The patient understands they are subject to the terms and conditions of the pain contract that they have signed. ? ?? I have checked an [place] report on this patient today and there are no aberrancies noted in the prescribing history.? (4) Lumbar spondylosis: (5) Obesity: Assessment and Plan: The patient was counseled that proper dietary changes and consistent partic ipation in a home exercise plan can lead to weight loss. Weight loss can help to improve functionality in patients with chronic pain.? Plan increase percocet to 7.5mg BID PRN moderate to severe pain continue other medications patient would like to pursue SCS trial f/u with Dr Conway to discuss SCS trial
== END 2023-03-01 11:34 | disposition home or self-care (01) ==
PROVIDERS: PCP Nurse Practitioner; Visit Provider Nurse Practitioner
DX: M54.14 Radiculopathy, thoracic region (principal); M48.04 Spinal stenosis, thoracic region; Z79.891 Long term (current) use of opiate analgesic
CPT/HCPCS: G0463

== ENCOUNTER 2023-03-14 13:55 | Outpatient (OUT) | payer OTHER, SELFPAY ==
[2023-03-14 14:43] LABS: Alanine Aminotransferase 32 U/L (14-59); Albumin Globulin Ratio 1.3; Albumin Level 4.2 g/dL (3.4-5.0); Alkaline Phosphatase 82 U/L (46-116); Anion Gap 14.2; Aspartate Amino Transferase 27 U/L (15-37); BUN Creatinine Ratio 22.4; Bilirubin Total 0.3 mg/dL (0.2-1.0); Calcium 9.6 mg/dL (8.5-10.1); Carbon Dioxide 26.7 mmol/L (21.0-32.0); Chloride 108 mmol/L (98-107); Estimated GFR (African America 40 (>=60); Estimated GFR (Non-African Ame 33 (>=60); Globulin 3.3 g/dL; Glucose 53 mg/dL (74-106); Potassium 4.9 mmol/L (3.5-5.1); Sodium 144 mmol/L (136-145); Total Protein 7.5 g/dL (6.4-8.2)
== END 2023-03-14 13:56 | disposition home or self-care (01) ==
LOC: LAB 13:56
PROVIDERS: PCP Nurse Practitioner; Visit Provider Internal Medicine Interventional Cardiology
DX: R06.02 Shortness of breath (principal)
CPT/HCPCS: 36415; 80053; 83880

== ENCOUNTER 2023-04-03 21:35 | Emergency (ER) | payer OTHER, SELFPAY ==
[2023-04-03 21:45] VITALS: BP 164/82; PULSE 72; RESP 20; TEMP 37.1; O2SAT 100; BMI 53.2
--- NOTE | 2023-04-03 21:54 | ED.GENADUL1 ---
HPI - General Adult General Chief complaint: Urogenital-Female Stated complaint: UTI Time Seen by Provider: 04/03/23 21:50 Source: patient Mode of arrival: Wheelchair Limitations: no limitations History of Present Illness HPI narrative: patient states she has been ill all day. Describes vertigo. room spinning. Started around 2pm and she has been falling because she is dizzy. No weakness or headache. No ear pain. Dizziness worse looking to the right. Also black stool yesterday and again today. Has suprapubic pressure. No nausea or vomiting. Feels weak and chilled Onset (ago): hour(s) Related Data Home Medications Medication Instructions Recorded Confirmed amlodipine 10 mg tablet 10 mg PO QDAY 12/18/22 02/19/23 aripiprazole 10 mg tablet 10 mg PO QDAY 12/18/22 02/19/23 aspirin 81 mg chewable tablet 81 mg PO QDAY 12/18/22 02/19/23 atorvastatin 80 mg tablet 80 mg PO QDAY 12/18/22 02/19/23 buspirone 30 mg tablet 30 mg PO BID 12/18/22 02/19/23 cariprazine 6 mg capsule (Vraylar) 6 mg PO Q24H 12/18/22 02/19/23 escitalopram oxalate 20 mg tablet 20 mg PO QDAY 12/18/22 02/19/23 fenofibrate nanocrystallized 145 145 mg PO QDAY 12/18/22 02/19/23 mg tablet furosemide 20 mg tablet 40 mg PO QDAY 12/18/22 02/19/23 gabapentin 600 mg tablet 600 mg PO QDAY PRN neuromuscular 12/18/22 02/19/23 blockade isosorbide mononitrate 30 mg 30 mg PO QDAY 12/18/22 02/19/23 tablet,extended release 24 hr lamotrigine 200 mg tablet 200 mg PO QDAY 12/18/22 02/19/23 lamotrigine 25 mg tablet 50 mg PO QDAY 12/18/22 02/19/23 metoprolol succinate 25 mg 12.5 mg PO QDAY 12/18/22 02/19/23 tablet,extended release 24 hr pioglitazone 45 mg tablet 45 mg PO QDAY 12/18/22 02/19/23 sacubitril 49 mg-valsartan 51 mg 1 tab PO BID 12/18/22 02/19/23 tablet (Entresto) spironolactone 25 mg tablet 25 mg PO QDAY 12/18/22 02/19/23 tizanidine 4 mg tablet 4 mg PO Q8H PRN muscle spasticity 12/18/22 02/19/23 cetirizine 10 mg tablet (Zyrtec) 10 mg PO DAILY PRN allergy symptoms 01/01/23 02/19/23 ferrous sulfate 134 mg (27 mg 134 mg PO DAILY 01/01/23 02/19/23 iron) tablet (High Potency Iron) Previous Rx's Medication Instructions Recorded oxycodone-acetaminophen 5 mg-325 1 tab PO DAILY PRN pain 5 days #10 12/18/22 mg tablet (Percocet) tabs diazepam 10 mg tablet (Valium) 10 mg PO ONCE PRN sedation #1 tab 01/01/23 oxycodone-acetaminophen 5 mg-325 1 tab PO BID PRN pain #60 tabs 01/01/23 mg tablet (Percocet) oxycodone-acetaminophen 5 mg-325 1 tab PO BID PRN pain #60 tabs 01/31/23 mg tablet (Percocet) oxycodone-acetaminophen 7.5 mg-325 1 tab PO BID PRN pain #60 tabs //23 mg tablet (Percocet) Allergies Allergy/AdvReac Type Severity Reaction Status Date / Time Sulfa (Sulfonamide Allergy Mild Hives Verified 12/18/22 22:08 Antibiotics) prochlorperazine AdvReac Intermediate Agitated Verified 12/18/22 22:08 [From Compazine] promethazine [From Phenergan] AdvReac Intermediate Agitated Verified 12/18/22 22:08 sulfamethoxazole AdvReac Mild Hives Verified 12/18/22 22:08 [From Bactrim] trimethoprim [From Bactrim] AdvReac Mild Hives Verified 12/18/22 22:08 PFSH PFSH Social History Smoking status: Never smoker Exam Constitutional Vital Signs, click to edit/add: Last Vital Signs Temp 98.8 F 04/03/23 21:45 Pulse 72 04/03/23 21:45 Resp 20 04/03/23 21:45 BP 164/82 H 04/03/23 21:45 Pulse Ox 100 04/03/23 21:45 O2 Del Method Room Air 04/03/23 21:45 Common normals: oriented x3, alert and well nourished HENMT Other: TMs clear Eye Common normals: EOMs intact bilaterally and conjunctivae normal Respiratory Common normals: normal respiratory effort, no retractions, no use of accessory muscles and clear to auscultation bilaterally Cardio Common normals: regular rate, regular rhythm, S1 normal heart sound and S2 normal heart sound GI Common normals: Normal to inspection, nondistended, normoactive bowel sounds present, soft to palpation and non-tender Extremity Common normals: normal to inspection, full ROM and normal capillary refill Neuro Common normals: oriented x3, CN's II-XII intact bilaterally, moves all extremities, no focal motor deficits and no sensory deficits noted Psych Appearance: grossly normal Course Vital Signs Vital signs: Vital Signs Temperature 98.8 F 04/03/23 21:45 Pulse Rate 72 04/03/23 21:45 Respiratory Rate 20 04/03/23 21:45 Blood Pressure 164/82 H 04/03/23 21:45 Pulse Oximetry 100 04/03/23 21:45 Oxygen Delivery Method Room Air 04/03/23 21:45 Temperature 98.8 F 04/03/23 21:45 Pulse Rate 72 04/03/23 21:45 Respiratory Rate 20 04/03/23 21:45 Blood Pressure 164/82 H 04/03/23 21:45 Pulse Oximetry 100 04/03/23 21:45 Oxygen Delivery Method Room Air 04/03/23 21:45 Medical Decision Making Lab Data Labs: Lab Results 04/03/23 04/03/23 04/04/23 Range/Units 22:10 23:30 00:20 WBC 6.8 (4.0-11.0) 10^3/uL RBC 3.68 L (4.20-5.40) 10^6/uL Hgb 10.7 L (12.0-16.0) g/dL Hct 35.9 L (36.0-48.0) % MCV 97.6 (81.0-99.0) fL MCH 29.1 (26.7-34.0) pg MCHC 29.8 L (29.9-35.2) g/dL RDW 14.1 (11.0-15.0) % Plt Count 211 (150-450) 10^3/uL MPV 10.9 (9.5-13.5) fL Neut % (Auto) 70.9 (43.0-75.0) % Lymph % (Auto) 19.4 L (20.5-60.0) % [place] % (Auto) 6.6 (1.7-12.0) % Eos % (Auto) 2.1 (0.9-7.0) % Baso % (Auto) 0.7 (0.2-2.0) % Neut # (Auto) 4.8 (1.4-6.5) 10^3/uL Lymph # (Auto) 1.3 (1.2-3.8) 10^3/uL [place] # (Auto) 0.5 (0.3-0.8) 10^3/uL Eos # (Auto) 0.1 (0.0-0.7) 10^3/uL Baso # (Auto) 0.1 (0.0-0.1) 10^3/uL Abs Immat Gran (auto) 0.02 (0.00-0.03) 10^3/uL Imm/Tot Granulo (auto) 0.3 (0.0-0.5) % Sodium 134 L (136-145) mmol/L Potassium 4.6 (3.5-5.1) mmol/L Chloride 101 (98-107) mmol/L Carbon Dioxide 24.6 (21.0-32.0) mmol/L Anion Gap 13.0 BUN 33.0 H (7.0-18.0) mg/dL Creatinine 1.64 H (0.55-1.02) mg/dL Est GFR ( Amer) 40 L (>=60) Est GFR (Non-Af Amer) 33 L (>=60) BUN/Creatinine Ratio 20.1 Glucose 102 (74-106) mg/dL Lactate 1.5 (0.4-2.0) mmol/L Calcium 9.3 (8.5-10.1) mg/dL Total Bilirubin 0.5 (0.2-1.0) mg/dL AST 29 (15-37) U/L ALT 33 (14-59) U/L Alkaline Phosphatase 72 (46-116) U/L Troponin I High Sens 11.6 (4.0-51.3) pg/mL Total Protein 7.1 (6.4-8.2) g/dL Albumin 3.8 (3.4-5.0) g/dL Globulin 3.3 g/dL Albumin/Globulin Ratio 1.2 Urine Color Lt. yellow (YELLOW) Urine Clarity Clear (CLEAR) Urine pH 7.0 (5.0-9.0) Ur Specific [place] 1.015 (1.005-1.025) Urine Protein Negative (NEG/TRACE) mg/dL Urine Glucose (UA) Negative (NEGATIVE) mg/dL Urine Ketones Negative (NEGATIVE) mg/dL Urine Occult Blood Negative (NEGATIVE) Urine Nitrite Negative (NEGATIVE) Urine Bilirubin Negative (NEGATIVE) Urine Urobilinogen 0.2 (0.2-1.0) EU/dL Ur Leukocyte Esterase Negative (NEGATIVE) Stool Occult Blood Negative Discharge Plan Discharge Chief Complaint: Urogenital-Female Clinical Impression: Benign positional vertigo, Abdominal pain Patient Disposition: Home, Self-Care Prescriptions / Home Meds: No Action amlodipine 10 mg tablet 10 mg PO QDAY aripiprazole 10 mg tablet 10 mg PO QDAY aspirin 81 mg tablet,chewable 81 mg PO QDAY atorvastatin 80 mg tablet 80 mg PO QDAY buspirone 30 mg tablet 30 mg PO BID escitalopram oxalate 20 mg tablet 20 mg PO QDAY Vraylar 6 mg capsule 6 mg PO Q24H lamotrigine 200 mg tablet 200 mg PO QDAY Rx Instructions: Take with 2 25mg tablets for total of 250g lamotrigine 25 mg tablet 50 mg PO QDAY fenofibrate nanocrystallized 145 mg tablet 145 mg PO QDAY furosemide 20 mg tablet 40 mg PO QDAY gabapentin 600 mg tablet 600 mg PO QDAY PRN (Reason: neuromuscular blockade) isosorbide mononitrate 30 mg tablet extended release 24 hr 30 mg PO QDAY metoprolol succinate 25 mg tablet extended release 24 hr 12.5 mg PO QDAY pioglitazone 45 mg tablet 45 mg PO QDAY Entresto 49-51 mg tablet 1 tab PO BID spironolactone 25 mg tablet 25 mg PO QDAY tizanidine 4 mg tablet 4 mg PO Q8H PRN (Reason: muscle spasticity) oxycodone-acetaminophen [Percocet] 5-325 mg tablet 1 tab PO DAILY PRN (Reason: pain) 5 Days Qty: 10 0RF oxycodone-acetaminophen [Percocet] 5-325 mg tablet 1 tab PO BID PRN (Reason: pain) Qty: 60 0RF diazepam [Valium] 10 mg tablet 10 mg PO ONCE PRN (Reason: sedation) Qty: 1 0RF Rx Instructions: take one tab 1 hour prior to procedure cetirizine [Zyrtec] 10 mg tablet 10 mg PO DAILY PRN (Reason: allergy symptoms) High Potency Iron 134 mg (27 mg iron) tablet 134 mg PO DAILY oxycodone-acetaminophen [Percocet] 5-325 mg tablet 1 tab PO BID PRN (Reason: pain) Qty: 60 0RF oxycodone-acetaminophen [Percocet] 7.5-325 mg tablet 1 tab PO BID PRN (Reason: pain) Qty: 60 0RF Instructions: Abdominal Pain (ED), Dizziness (ED) Additional Instructions: drink plenty of fluids and follow up with your doctor in next 2-3 days for recheck Stand Alone Forms: Portal Instructions Referrals: Janene Lew NP [Primary Care Provider] - 1 week Discharge Date/Time: 04/04/23 01:32
--- NOTE | 2023-04-03 21:55 | ECG_ITS ---
The [facility] Test Date: 2023-04-03 Pat Name: SHARLENE HUMPHREYS Department: Room: - Gender: Female Senior [employer]: : 1970 Requested By: [id number] Order Number: [id number] Reading MD: AIDEN SOLO Measurements Intervals [place] Rate: 65 P: 68 MA: 164 QRS: 60 QRSD: 88 T: 70 QT: 358 QTc: 369 Interpretive Statements 1100 Sinus rhythm 8100 Low QRS voltage 9150 abnormal ECG No previous ECG available for comparison Electronically Signed On 04-04-2023 7:07:15 EST by AIDEN SOLO
--- NOTE | 2023-04-03 21:57 | CT_ITS ---
The [address] [address] Patient Name: SHARLENE HUMPHREYS MRN: [id number] date: 1970 Sex: F Assigned Patient Location: ER Current Patient Location: ER Accession/Order Number: [id number] Exam Date: 04/03/2023 22:34 Report Date: 04/03/2023 22:50 At the request of: EVON TRAMMELL Procedure: CT head/brain wo con EXAMINATION: CT head/brain wo con, , 04/03/2023 10:34 PM EST INDICATION: dizziness HISTORY: Ordering Provider Reason for Exam: dizziness Technologist Note: Additional: COMPARISON: None. TECHNIQUE: CT scan of the head was performed without IV contrast. CT dose reduction technique was used, including Automated Exposure Control. FINDINGS: Ventricles and sulci are normal in size and configuration. No extra-axial collection. No intracranial hemorrhage. No mass effect or edema. No CT evidence of large territorial infarction. Visualized paranasal sinuses are well aerated. Mastoids are clear. Calvarium is unremarkable. CT/CT head/brain wo con IMPRESSION: No intracranial hemorrhage or mass effect. Electronically authenticated by: JENAE TYSON Date: 04/03/2023 22:50
[2023-04-03 22:23] LABS: Basophils Absolute Auto 0.1 10^3/uL (0.0-0.1); Basophils Percent Auto 0.7 % (0.2-2.0); Bilirubin Urine NEGATIVE (NEGATIVE); Blood Urine NEGATIVE (NEGATIVE); Clarity Urine CLEAR (CLEAR); Color Urine LT. YELLOW (YELLOW); Eosinophils Absolute Auto 0.1 10^3/uL (0.0-0.7); Eosinophils Percent Auto 2.1 % (0.9-7.0); Glucose Urine UA NEGATIVE (NEGATIVE); Hematocrit 35.9 % (36.0-48.0); Hemoglobin 10.7 g/dL (12.0-16.0); Immature Granulocytes Abs Auto 0.02 10^3/uL (0.00-0.03); Immature Granulocytes Pct Auto 0.3 % (0.0-0.5); Ketones Urine NEGATIVE (NEGATIVE); Leukocyte Esterase Urine NEGATIVE (NEGATIVE); Lymphocytes Absolute Auto 1.3 10^3/uL (1.2-3.8); Lymphocytes Percent Auto 19.4 % (20.5-60.0); Mean Corpuscular HGB Conc 29.8 g/dL (29.9-35.2); Mean Corpuscular Hemoglobin 29.1 pg (26.7-34.0); Mean Corpuscular Volume 97.6 fL (81.0-99.0); Mean Platelet Volume 10.9 fL (9.5-13.5); Monocytes Absolute Auto 0.5 10^3/uL (0.3-0.8); Monocytes Percent Auto 6.6 % (1.7-12.0); Neutrophils Absolute Auto 4.8 10^3/uL (1.4-6.5); Neutrophils Percent Auto 70.9 % (43.0-75.0); Nitrite Urine NEGATIVE (NEGATIVE); Platelet Count 211 10^3/uL (150-450); Protein Urine NEGATIVE (NEG/TRACE); Red Blood Count 3.68 10^6/uL (4.20-5.40); Red Cell Distribution Width 14.1 % (11.0-15.0); Specific Gravity Urine 1.015 (1.005-1.025); Urobilinogen Urine 0.2 EU/dL (0.2-1.0); White Blood Count 6.8 10^3/uL (4.0-11.0)
[2023-04-03 22:24] LABS: Urine Microscopic Indicated NO
[2023-04-03] MEDS: 0.9 % SODIUM CHLORIDE 1,000 ML 999 ML IV (22:25)
[2023-04-03] MEDS: MECLIZINE HCL 12.5 MG TABLET 25 MG PO (22:27)
[2023-04-03] MEDS: DIAZEPAM 10 MG/2 ML SYRINGE 5 MG IV (22:27)
--- NOTE | 2023-04-03 22:38 | PC.NURSE ---
pt with abdominal cramping, dark yellow urine, stated dehydration, dark stools, four falls today at work, one witnessed, dizziness. Started feeling bad yesterday. Was off work for three months due to chronic back pain, just went back recently. Took Percocet as soon as she got to work today due to back pain.
[2023-04-03 22:41] LABS: Lactate/Lactic Acid 1.5 mmol/L (0.4-2.0); Troponin I High Sensitivity 11.6 pg/mL (4.0-51.3)
--- NOTE | 2023-04-03 23:27 | CT_ITS ---
The [address] [address] Patient Name: SHARLENE HUMPHREYS MRN: [id number] date: 1970 Sex: F Assigned Patient Location: ER Current Patient Location: ER Accession/Order Number: [id number] Exam Date: 04/03/2023 23:43 Report Date: 04/04/2023 00:05 At the request of: EVON TRAMMELL Procedure: CT abdomen pelvis wo con EXAM: CT abdomen pelvis wo con HISTORY: lower abdominal pain COMPARISON: CT abdomen and pelvis examination dated 05/29/2022. TECHNIQUE: Noncontrast axial CT images through the abdomen and pelvis were obtained with coronal and sagittal reformats. Dose reduction techniques were achieved by using automated exposure control and/or adjustment of mA and/or kV according to patient size and/or use of iterative reconstruction technique. FINDINGS: There is linear atelectasis and/or scarring in the left lung base. There is a calcified granuloma in the left lower lobe. Abdomen: Please note that the sensitivity for detection of focal lesions or vascular disease is markedly reduced without intravenous contrast. The liver is enlarged measuring up to 20.6 cm at the right midclavicular line. The spleen is unremarkable. There is no intra or extrahepatic biliary duct dilatation. The gallbladder is unremarkable. There is a lobulated appearance to the kidneys. There are postsurgical changes of a gastric bypass. Otherwise, the pancreas, adrenal glands, kidneys, and bowel loops, including the appendix, are unremarkable. There is no mesenteric or retroperitoneal lymphadenopathy. Pelvis: The bladder and rectum are unremarkable. There is no iliac or inguinal lymphadenopathy. The patient is status post hysterectomy. There is mild atherosclerotic disease. Bone windows show no aggressive osseous lesions. CT/CT abdomen pelvis wo con IMPRESSION: 1. No specific etiology identified to explain the patient's abdominal pain. 2. Hepatomegaly. 3. Status post gastric bypass and hysterectomy. 4. Normal appendix. Electronically authenticated by: Cassy GREEN Date: 04/04/2023 00:05
[2023-04-03 23:41] LABS: Occult Blood Negative
[2023-04-04 00:49] LABS: Alanine Aminotransferase 33 U/L (14-59); Albumin Globulin Ratio 1.2; Albumin Level 3.8 g/dL (3.4-5.0); Alkaline Phosphatase 72 U/L (46-116); Aspartate Amino Transferase 29 U/L (15-37); BUN Creatinine Ratio 20.1; Bilirubin Total 0.5 mg/dL (0.2-1.0); Calcium 9.3 mg/dL (8.5-10.1); Carbon Dioxide 24.6 mmol/L (21.0-32.0); Chloride 101 mmol/L (98-107); Estimated GFR (African America 40 (>=60); Estimated GFR (Non-African Ame 33 (>=60); Globulin 3.3 g/dL; Glucose 102 mg/dL (74-106); Potassium 4.6 mmol/L (3.5-5.1); Sodium 134 mmol/L (136-145); Total Protein 7.1 g/dL (6.4-8.2)
[2023-04-04] MEDS: MECLIZINE HCL 12.5 MG TABLET 25 MG PO (01:18)
== END 2023-04-04 01:32 | disposition home or self-care (01) ==
PROVIDERS: Emergency Provider Internal Medicine; PCP Nurse Practitioner
DX: H81.10 Benign paroxysmal vertigo, unspecified ear (principal); R19.5 Other fecal abnormalities; R10.9 Unspecified abdominal pain; Z79.899 Other long term (current) drug therapy; Z79.82 Long term (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
CPT/HCPCS: 36415; 70450; 74176; 80053; 81003; 83605; 84484; 85025; 93005; 96361; 96374; 99285; G0328

== ENCOUNTER 2023-05-10 07:53 | Outpatient (OUT) | payer BC, SELFPAY ==
--- OUTSIDE RECORDS SUMMARY | 2023-05-10 07:57 | XMS_ITS | CCD ---
Author Name Unknown Address [address] [place] [address] Organization [facility] Care Team Providers [facility] Name Role Phone Peng Valles Admitting Unavailable Peng Valles Attending Unavailable GEOVANNI MYERS Primary Care Unavailable HAMMAD LING Referring Unavailabl e NM Procedure Practitioner Unavailab TK [place] Surgeon Unavailable Christian Mckenzie Unavailable Janene Lew Primary Care Provider MD Christian Mckenzie Attending Provider ELIER Bolivar Emma Attending Provider Emma Bolivar Unavailable Halle Mac Unavailable Janene Lew Primary Care Provider [phone] STU Hernandez-LYNNE Antunez Emergency Provider 1( [phone] Ivan Sams Unavailable AICHHOLZ, ELECTRONIC DEVICE MONITOR JANENE Consulting Unavailable AICHHOLZ, ELECTRONIC DEVICE MONITOR JANENE Attending Unavailable AICHHOLZ, ELECTRONIC DEVICE MONITOR JANENE Admitting Unavailable AICHHOLZ, ELECTRONIC DEVICE MONITOR JANENE Primary Care Unavailable AICHHOLZ, ELECTRONIC DEVICE MONITOR JANENE Consulting Unavailable AICHHOLZ, ELECTRONIC DEVICE MONITOR JANENE Attending Unavailable AICHHOLZ, ELECTRONIC DEVICE MONITOR JANENE Admitting Unavailable AICHHOLZ, ELECTRONIC DEVICE MONITOR JANENE Primary Care Unavailable AICHHOLZ, ELECTRONIC DEVICE MONITOR JANENE Primary Care Unavailable AICHHOLZ, ELECTRONIC DEVICE MONITOR JANENE Consulting Unavailable AICHHOLZ, ELECTRONIC DEVICE MONITOR JANENE Admitting Unavailable AICHHOLZ, ELECTRONIC DEVICE MONITOR JANENE Attending Unavailable AYDIN Carrillo, DR MIGUEL Attending Unavailable AYDIN Carrillo, DR MIGUEL Admitting Unavailable AYDIN Carrillo, DR MIGUEL Consulting Unavailable AICHHOLZ, ELECTRONIC DEVICE MONITOR JANENE Primary Care Unavailable AICHHOLZ, ELECTRONIC DEVICE MONITOR JANENE Primary Care Unavailable DWAYNE FRIEDMAN Admitting Unavailable DWAYNE FRIEDMAN Attending Unavailable CLEMENT PLUMMER Consulting Unavailable Wan Jenkins Consulting Unavailable AICHHOLZ, ELECTRONIC DEVICE MONITOR JANENE Primary Care Unavailable EVON TRAMMELL Attending Unavailable EVON TRAMMELL Admitting Unavailable EVON TRAMMELL Consulting Unavailable LUZ COELLO Consulting Unavailable NATHAN COLE Consulting Unavailable LIN GARRETT Consulting Unavailable AICHHOLZ, ELECTRONIC DEVICE MONITOR JANENE Primary Care Unavailable AICHHOLZ, ELECTRONIC DEVICE MONITOR JANENE Admitting Unavailable AICHHOLZ, ELECTRONIC DEVICE MONITOR JANENE Attending Unavailable TIFFANY, DR ALEX Ashley Consulting Unavailable AICHHOLZ, ELECTRONIC DEVICE MONITOR JANENE Consulting Unavailable AICHHOLZ, ELECTRONIC DEVICE MONITOR JANENE Consulting Unavailable AICHHOLZ, ELECTRONIC DEVICE MONITOR JANENE Attending Unavailable AICHHOLZ, ELECTRONIC DEVICE MONITOR JANENE Admitting Unavailable AICHHOLZ, ELECTRONIC DEVICE MONITOR JANENE Primary Care Unavailable DR KATHY HENDRICKS Consulting Unavailable AICHHOLZ, ELECTRONIC DEVICE MONITOR JANENE Attending Unavailable AICHHOLZ, ELECTRONIC DEVICE MONITOR JANENE Admitting Unavailable AICHHOLZ, ELECTRONIC DEVICE MONITOR JANENE Primary Care Unavailable DR ALEX ALLEN V Consulting Unavailable AICHHOLZ, ELECTRONIC DEVICE MONITOR JANENE Consulting Unavailable AICHHOLZ, ELECTRONIC DEVICE MONITOR JANENE Consulting Unavailable AICHHOLZ, ELECTRONIC DEVICE MONITOR JANENE Primary Care Unavailable AICHHOLZ, ELECTRONIC DEVICE MONITOR JANENE Attending Unavailable AICHHOLZ, ELECTRONIC DEVICE MONITOR JANENE Admitting Unavailable AICHHOLZ, ELECTRONIC DEVICE MONITOR JANENE Primary Care Unavailable AICHHOLZ, ELECTRONIC DEVICE MONITOR JANENE Admitting Unavailable AICHHOLZ, ELECTRONIC DEVICE MONITOR JANENE Consulting Unavailable AICHHOLZ, ELECTRONIC DEVICE MONITOR JANENE Attending Unavailable DR KATHY HENDRICKS Consulting Unavailable AICHHOLZ, ELECTRONIC DEVICE MONITOR JANENE Primary Care Unavailable BAKHOUS, AZIZ Admitting Unavailable BAKHOUS, AZIZ Attending Unavailable AICHHOLZ, ELECTRONIC DEVICE MONITOR JANENE Attending Unavailable AICHHOLZ, ELECTRONIC DEVICE MONITOR JANENE Admitting Unavailable AICHHOLZ, ELECTRONIC DEVICE MONITOR JANENE Primary Care Unavailable AICHHOLZ, ELECTRONIC DEVICE MONITOR JANENE Primary Care Unavailable AICHHOLZ, ELECTRONIC DEVICE MONITOR JANENE Consulting Unavailable AICHHOLZ, ELECTRONIC DEVICE MONITOR JANENE Attending Unavailable AICHHOLZ, ELECTRONIC DEVICE MONITOR JANENE Admitting Unavailable DR KATHY HENDRICKS Consulting Unavailable AICHHOLZ, ELECTRONIC DEVICE MONITOR JANENE Primary Care Unavailable AICHHOLZ, ELECTRONIC DEVICE MONITOR JANENE Admitting Unavailable AICHHOLZ, ELECTRONIC DEVICE MONITOR JAENNE Attending Unavailable AICHHOLZ, ELECTRONIC DEVICE MONITOR JANENE Consulting Unavailable AICHHOLZ, ELECTRONIC DEVICE MONITOR JANENE Primary Care Unavailable AMBER ., DOLORES Attending Unavailable AMBER ., DOLORES Admitting Unavailable ASHLEY ., MR DELIA Consulting Unavailable AMBER ., DOLORES Consulting Unavailable ALEX AVINA Consulting Unavailable AICHHOLZ, ELECTRONIC DEVICE MONITOR JANENE Primary Care Unavailable JP, EOVN Attending Unavailable JP, EVON Admitting Unavailable EVON TRAMMELL Consulting Unavailable Man SHARMA, Elza Haywood Attending Unavailable Man SHARMA, Elza Haywood Attending Unavailable JONATHAN ARIAS Attending Unavailable ELTACHEN, EH Attending Unavailable JONATHAN ARIAS Attending Unavailable Bullimabraham Merissa E Attending Unavailable Bullimore, Merissa E Admitting Unavailable Aichholz, Janene J Primary Care Unavailable Aichholz, Janene J Primary Care Unavailable Valdemar Alonso Attending Unavailab le Valdemar Alonso Admitting Unavailab le MATTY, JANENE Attending Unavailable Allergies Allergy Classification Reported Allergen(s) Allergy Type Date of Onset Reaction(s) Facility (2 sources) Cephalexin Drug Allergy 10-06-19 10 [facility] (2 sources) Levamisole Drug Allergy 05-22-19 13 [facility] (2 sources) Omeprazole; Translations: [OMEPRAZOLE] Drug Allergy 04-20-19 16 [facility] (14 sources) Prochlorperazine Drug Allergy 10-06-19 10 Unknown [facility] (14 sources) Sulfamethoxazole / Trimethoprim Drug Allergy 10-06-19 10 Unknown [facility] (12 sources) Penicillins (Antibiotic) Propensity to adverse reactions Unknown [facility] Other (16 sources) Promethazine; Translations: [PROMETHAZINE] Drug Allergy 06-28-19 14 Unknown, Seizure (5 sources) empagliflozin; Translations: [EMPAGLIFLOZIN] Drug Allergy 08-11-19 22 Unknown Reaction (6 sources) Penicillins; Translations: [Penicillins] Allergy to substance 06-28-19 14 [facility] (5 sources) Prochlorperazine; Translations: [PROCHLORPERAZINE] Drug Allergy 06-28-19 14 [facility] (5 sources) Sulfamethoxazole; Translations: [SULFAMETHOXAZOLE] Drug Allergy 06-28-19 14 [facility] (4 sources) Trimethoprim; Translations: [trimethoprim] Drug Allergy 08-11-19 22 [facility] (1 source) Sulfonamides (Antibiotic) Drug allergy (disorder) 06-10-19 15 [facility] (1 source) Cephalexin; Translations: [CEPHALEXIN] Drug Allergy 06-28-19 14 [facility] (1 source) Doxycycline; Translations: [DOXYCYCLINE CALCIUM] Drug Allergy 06-28-19 14 [facility] (1 source) Esomeprazole; Translations: [ESOMEPRAZOLE MAGNESIUM] Drug Allergy 06-23-19 17 [facility] (1 source) pantoprazole; Translations: [PANTOPRAZOLE] Drug Allergy 06-23-19 17 [facility] (1 source) Sulfamethoxazole / Trimethoprim; Translations: [SULFAMETHOXAZOLE-T RIMETHOPRIM] Drug Allergy 04-03-20 14 [facility] (1 source) [place]; Translations: [PHENERGAN [place]IN] Propensity to adverse reactions to drug (disorder) 09-17-19 16 [facility] (1 source) Promethazine Drug Allergy 06-25-19 23 Repository Medications Current Medications Medication Drug Class(es) Dates Sig (Normalized) Sig (Original) acetaminophen 325 mg / oxyCODONE hydrochloride 5 mg oral tablet (6 sources) Opioid Agonist Start: 06-24-2022 take 1 tablet by mouth every six hours Oxycodone-Acetami nophen Active 1 TAB PO Q6H 10 3 June 24, 2022 [id number] 200 actuat albuterol 0.09 mg/actuat metered dose inhaler (4 sources) beta2-Adrenergic Agonist Start: 06-04-2021 take 1 puff(s) by inhalation every four hours Albuterol Sulfate (Ventolin Hfa) 90 mcg/actuation HFA aerosol inhaler Active 2 PUFF INHALATION Q4H June 04, 2021 12:00am Albuterol Active amLODIPine 5 mg oral tablet (7 sources) Dihydropyridine Calcium Channel Seema take 1 tablet by mouth every twenty-four hours amLODIPine Besylate 5 MG 1 tablet Orally Once a day Active amLODIPine Besyl ate Active ARIPiprazole 30 mg oral tablet (10 sources) Atypical Antipsychotic Start: 06-04-2021 take 30 mg by mouth once daily Aripiprazole Active 30 MG PO Daily June 04, 2021 12:00am take 1 tablet by brandin th every twenty-four hours Abilify 20 MG 1 tablet Orally Once a day Active take 1 tablet by brandin th every twenty-four hours ARIPiprazole 15 MG 1 tablet Orally Once a day takes 1100 Active aspirin 81 mg delayed release oral tablet (10 sources) Platelet Aggregation Inhibitor, Nonsteroidal Anti-inflammatory Drug Start: 06-06-2021 take 81 mg by mouth once daily Aspirin Active 81 MG PO Daily June 06, 2021 12:00am take 1 tablet by brandin th every twenty-four hours Aspirin 81 MG 1 tablet Orally Once a day Active atorvastatin 40 mg oral tablet (15 sources) HMG-CoA Reductase Inhibitor Start: 06-04-2021 take 40 mg by mouth at bedtime Atorvastatin Active 40 MG PO Bedtime June 04, 2021 12:00am take 1 tablet by brandin th every twenty-four hours Atorvastatin Calcium 80 MG 1 tablet Oral ly Once a day Active Biotin (6 sources) Biotin Active busPIRone hydrochloride 30 mg oral tablet (15 sources) Start: take 30 mg by mouth twice daily Buspirone Active 30 MG PO Twice daily June 04, 2021 12:00am Calcium Citrate + D 315-200 MG-UNIT (6 sources) take 1 tablet by mouth twice daily Calcium Citrate + D 315-200 MG-UNIT 1 tablet Orally Twice a day Active cariprazine 6 mg oral capsule (3 sources) Atypical Antipsychotic take 1 capsule by mouth every twenty-four hours Vraylar 6 MG 1 capsule Orally Once a day Active Vraylar Active cetirizine hydrochloride 10 mg oral tablet (12 sources) Histamine-1 Receptor Antagonist Start: 06-04-2021 take 1 tablet by mouth at bedtime Cetirizine (Zyrtec) 10 mg Tablet Active 10 MG PO Bedtime June 04, 2021 12:00am Start: 10-06-2019 take 1 tablet by brandin th once daily as needed ZyrTEC Allergy 10 mg 1 tablet as needed Orally Once a day for 30 day(s) Sep, Not-Taking Cetirizine HCl A ctive ciprofloxacin 500 mg oral tablet (3 sources) Quinolone Antimicrobial Start: 08-13-2021 take 1 tablet by mouth every two hours Ciprofloxacin Hcl (Cipro) 500 mg Tablet Active 500 MG PO Q12H August 12, 2021 11:00pm administer dose at least 2 hrs before/6 hrs after dairy products, calcium, zinc, and/or iron-containing products escitalopram 20 mg oral tablet (11 sources) Serotonin Reuptake Inhibitor Start: 06-04-2021 take 20 mg by mouth once daily Escitalopram Oxalate Active 20 MG PO Daily June 04, 2021 12:00am Escitalopram Oxa late in am 1100 Active fenofibrate 145 mg oral tablet (11 sources) Peroxisome Proliferator Receptor alpha Agonist Start: 12-05-2019 take 145 mg by mouth once daily Fenofibrate Nanocrystallized Active 145 MG PO Daily June 04, 2021 12:00am Fenofibrate Acti ve fluticasone propionate 0.05 mg/actuat metered dose nasal spray (4 sources) Corticosteroid Start: 06-04-2021 Fluticasone Pr opionate Active 2 SPRAY INTRANASAL Daily June 04, 2021 12:00am Fluticasone Prop ionate Active furosemide 20 mg oral tablet (6 sources) Loop Diuretic take 1 tablet by mouth every twenty-four hours Lasix 20 MG 1 tablet Orally Once a day Active gabapentin 600 mg oral tablet (17 sources) Anti-epileptic Agent Start: take 1 tablet by mouth every twelve hours Gabapentin 600 MG 1 tablet Orally TWICE A DAY for 20 days Oct, Active Start: 11-10-2021 take 2 tablets by [facility] every twelve hours Gabapentin 600 MG 2 tablets Orally bid for 20 days Oct, Active Start: 09-29-2021 take 1-2 capsules by mouth twice daily Gabapentin 300 MG 1-2 capsule Orally twice a day for 30 day(s) Sep, Active Start: 12-05-2019 take 1 capsule by [facility] every twenty-four hours Gabapentin 300 MG 1 capsule Orally Once a day for 30 day(s) Nov, Active glipiZIDE 5 mg oral tablet (15 sources) Sulfonylurea Start: 06-04-2021 take 5 mg by mouth once daily Glipizide Active 5 MG PO Daily June 04, 2021 12:00am take 0.5 tablet by mouth once da kaiden glipiZIDE 5 MG 1/2 tablet Orally Once a day Active hydroCHLOROthiazide 12.5 mg oral tablet (1 source) Thiazide Diuretic take 1 tablet by mouth every twenty-four hours hydroCHLOROthiazide 12.5 MG 1 tablet in the morning Orally Once a day Active 24 hr isosorbide mononitrate 30 mg extended release oral tablet (10 sources) Nitrate Vasodilator Start : 06-04 take 30 mg by mouth once daily Isosorbide Mononitrate Active 30 MG PO Daily June 04, 2021 12:00am take 1 tablet by brandin th every twenty-four hours Isosorbide Mononitrate 10 MG 1 tablet Orally once a day for 30 day(s) Active lamoTRIgine 200 mg oral tablet (6 sources) Mood Stabilizer, Anti-epileptic Agent take 1 tablet by mouth every twenty-four hours LaMICtal 200 MG 1 tablet Orally Once a day Active lidocaine 0.05 mg/mg medicated patch (1 source) Antiarrhythmic, Amide Local Anesthetic Start: 06-25-19 apply 1 dose topically once daily Lidocaine Active 1 PATCH TOPICAL Daily June 24, 2022 12:00am leave on most painful area for up to 12 hrs lisinopril 40 mg oral tablet (15 sources) Angiotensin Converting Enzyme Inhibitor Start: 06-04-19 22 take 40 mg by mouth once daily Lisinopril Active 40 MG PO Daily June 04, 2021 12:00am magnesium oxide 400 mg oral tablet (19 sources) Start: 12-10-19 19 take 1 tablet by mouth every twenty-four hours Magnesium Oxide 400 MG 1 tablet Orally Once a day for 30 day(s) Nov, Active take 1 tablet by mouth once carmen y take 1 tablet by mouth once carmen y Magnesium Oxide 400 (241.3 Mg) MG TAKE 1 TABLET BY MOUTH ONCE DAILY for 30 Active metFORMIN hydrochloride 500 mg oral tablet (6 sources) Biguanide Start: 01-31-2019 take 1 tablet by mouth every twenty-four hours metFORMIN HCl 500 mg 1 tablet with meals Orally Once a day for 30 day(s) Jan, Active Methylprednisolone (1 source) Corticosteroid Start: 06-24-2022 Methylprednisolone Active 0 PO .COMPLEX June 24, 2022 12:00am orally per package directions 24 hr metoprolol succinate 25 mg extended release oral tablet (10 sources) beta-Adrenergic Seema Start: 06-04-2021 take 12.5 mg by mouth once daily Metoprolol Succinate Active 12.5 MG PO Daily June 04, 2021 12:00am take 0.5 tablet by mouth once da kaiden Toprol XL 25 MG 1/2 tablet Orally Once a day Active Metoprolol Succi marcos ER Active mirtazapine 15 mg oral tablet (4 sources) Start: 06-04-2021 take 30 mg by mouth at bedtime Mirtazapine Active 30 MG PO Bedtime June 04, 2021 12:00am Mirtazapine befo re bed, 2129 Active nitroglycerin 0.4 mg sublingual tablet (6 sources) Nitrate Vasodilator Nitrostat 0. 4 MG Sublingual Active ondansetron 4 mg oral tablet (1 source) Serotonin-3 Receptor Antagonist Start: 020 take 1 tablet by mouth three times daily as needed for nausea Zofran 4 mg 1 tablet Orally TID as needed for nausea for 5 days May, Active pioglitazone 30 mg oral tablet (10 sources) Peroxisome Proliferator Receptor alpha Agonist, Peroxisome Proliferator Receptor gamma Agonist, Thiazolidinedione Start: 022 take 45 mg by mouth once daily Pioglitazone Active 45 MG PO Daily June 04, 2021 12:00am take 1 tablet by brandin th every twenty-four hours Actos 45 MG 1 tablet Orally Once a day Active Pioglitazone HCl Active Potassium (6 sources) Potassium Active spironolactone 50 mg oral tablet (9 sources) Aldosterone Antagonist Start: 06-04-19 22 take 50 mg by mouth once daily Spironolactone Active 50 MG PO Daily June 04, 2021 12:00am Spironolactone A ctive Vitamin D3 5000 UNIT (12 sources) take 1 capsule by mouth once wander ly take 1 capsule by mouth once wander ly Vitamin D3 5000 UNIT 1 capsule Orally Once a day for 30 day(s) Active Completed/Discontinued Medications Medication Drug Class(es) Dates Sig (Normalized) Sig (Original) alogliptin 25 mg oral tablet (1 source) Start: 10-06-2019 take 1 tablet by mouth every twenty-four hours Alogliptin Benzoate 25 MG 1 tablet Orally Once a day for 30 day(s) Sep, Not-Taking calcium citrate 1040 mg oral tablet (1 source) Start: 10-06-2019 take 1 tablet by mouth once daily Calcium Citrate 1040 MG 1 tablet Orally Once a day for 30 day(s) Sep, Not-Taking carvedilol 25 mg oral tablet (1 source) alpha-Adrenergic Seema, beta-Adrenergic Seema take 1 tablet by mouth every twelve hours Carvedilol 25 MG 1 tablet Orally BID for 30 Not-Taking cyclobenzaprine hydrochloride 10 mg oral tablet (3 sources) Muscle Relaxant Start: 08-13-2021 End: 06-24-2022 take 10 mg by mouth three times daily Cyclobenzaprine Discontinued 10 MG PO Three times daily August 12, 2021 11:00pm June 24, 2022 5:53pm doxycycline hyclate 100 mg oral capsule (1 source) Tetracycline-cla ss Drug take 1 capsule by mouth every twelve hours Doxycycline Hyclate 100 MG 1 capsule Orally Twice a day for 30 Not-Taking linagliptin 5 mg oral tablet (1 source) Dipeptidyl Peptidase 4 Inhibitor Start: 12-01-2019 take 1 tablet by mouth every twenty-four hours Tradjenta 5 MG 1 tablet Orally Once a day for 30 day(s) Nov, Not-Taking Multivitamin preparation (2 sources) Start: 10-06-2019 take 1 tablet by mouth once daily Multi-Vitamin - 1 tablet Orally Once a day for 30 day(s) Sep, Not-Taking Start: 03-22-2018 take 1 tablet by brandin once daily Multi-Vitamin - 1 tablet Orally Once a day for 30 day(s) Mar, Active oxyCODONE hydrochloride 5 mg oral tablet (3 sources) Opioid Agonist Start: 08-13-2021 End: 06-24-2022 take 5-10 mg by mouth every six hours Oxycodone Discontinued 5 - 10 MG PO Q6H 50 August 13, 2021 June 24, 2022 5:53pm Prednisone (3 sources) Start: 08-13-2021 End: 06-24-2022 Prednisone Discontinued 1 dose pk PO per package directions August 12, 2021 11:00pm June 24, 2022 5:53pm take 4 tabs for 3 days then take 3 tabs for 3 days then take 2 tabs for 3 days then take 1 tab for 3 days Start: 08-13-2021 Prednisone Act erika 1 dose pk PO per package directions August 13, 2021 12:00am take 4 tabs for 3 days then take 3 tabs for 3 days then take 2 tabs for 3 days then take 1 tab for 3 days tiZANidine 4 mg oral tablet (10 sources) Central alpha-2 Adrenergic Agonist Start: 06-04-2021 End: 08-13-2021 take 4 mg by mouth at bedtime Tizanidine Discontinued 4 MG PO Bedtime June 04, 2021 12:00am August 13, 2021 1:52pm tiZANidine HCl A ctive vitamin B12 (2 sources) Vitamin B12 Start: 10-06-2019 take 1 tablet by mouth once daily Cyanocobalamin 500 MCG 1 tablet Orally Once a day for 30 day(s) Sep, Not-Taking take 1 tablet by mouth once carmen y Cyanocobalamin 500 MCG 1 Tablet Orally Once a day for 30 day(s) Not-Taking Problems Active Problems Problem Classification Problem Date Documented Date Episodic/Chronic Allergic reactions (12 sources) Environmental allergy; Translations: [Other allergy status, other than to drugs and biological substances] Episodic Chronic kidney disease (13 sources) Chronic kidney disease stage 3; Translations: [Chronic kidney disease, stage 3 unspecified] Chronic Conditions associated with dizziness or vertigo (2 sources) Dizziness and giddiness; Translations: [Dizziness and giddiness] Onset: 03-14-2023 Episodic Congestive heart failure; nonhypertensive (2 sources) Chronic diastolic (congestive) heart failure; Translations: [Chronic diastolic (congestive) heart failure] Onset: 10-03-2022 Chronic Coronary atherosclerosis and other heart disease (6 sources) Coronary arteriosclerosis; Translations: [Atherosclerotic heart disease of viejas coronary artery without angina pectoris] Onset: 09-11-2022 08-11-2021 Chronic Diabetes mellitus with complications (20 sources) Type 2 diabetes mellitus; Translations: [Type 2 diabetes mellitus with hypoglycemia without coma] Onset: 10-02-2021 Chronic Diabetes mellitus without complication (3 sources) Type 2 diabetes mellitus without complications; Translations: [TYPE 2 DM WITHOUT COMPLICATIONS] Onset: 09-11-2022 Chronic Disorders of lipid metabolism (20 sources) Dyslipidemia; Translations: [Hyperlipidemia, unspecified] Onset: 01-26-2022 Chronic Esophageal disorders (13 sources) Gastroesophageal reflux disease; Translations: [Gastro-esophageal reflux disease without esophagitis] Chronic Essential hypertension (19 sources) Essential hypertension; Translations: [Essential (primary) hypertension] Onset: 09-11-2022 08-10-2021 Chronic Genitourinary symptoms and ill-defined conditions (12 sources) Delay when starting to pass urine; Translations: [Hesitancy of micturition] Episodic Headache; including migraine (3 sources) Tension-type headache; Translations: [Tension-type headache, unspecified, not intractable] 02-25-2020 Chronic Hypertension with complications and secondary hypertension (7 sources) Hypertensive renal disease; Translations: [Hypertensive chronic kidney disease with stage 1 through stage 4 chronic kidney disease, or unspecified chronic kidney disease] Chronic Malaise and fatigue (3 sources) Decline in functional status; Translations: [Other malaise] 08-10-2021 Episodic Mood disorders (1 source) Bipolar disorder, unspecified; Translations: [BIPOLAR DISORDER UNSPECIFIED] Onset: 05-31-2022 Chronic Nonspecific chest pain (16 sources) Chest pain; Translations: [Other chest pain] Onset: 09-11-2022 06-04-2021 Episodic Nutritional deficiencies (12 sources) Vitamin D deficiency; Translations: [Vitamin D deficiency, unspecified] Chronic Other aftercare (1 source) director long term care (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; Translations: [HALF-WAY CURRENT USE OF ASPIRIN] Onset: 09-11-2022 Episodic Other aftercare (1 source) director long term care (current) use of oral hypoglycemic drugs; Translations: [HALF-WAY USE ORAL HYPOGLYCEMIC DX] Onset: 09-11-2022 Episodic Other aftercare (1 source) Other fci (current) drug therapy; Translations: [OTH HALF-WAY CURRENT DRUG THERAPY] Onset: 09-11-2022 Episodic Other hereditary and degenerative nervous system conditions (12 sources) Restless legs; Translations: [Restless legs syndrome] Chronic Other hereditary and degenerative nervous system conditions (1 source) Restless legs syndrome; Translations: [RESTLESS LEGS SYNDROME] Onset: 05-31-2022 Chronic Other liver diseases (1 source) Fatty (change of) liver, not elsewhere classified; Translations: [FATTY CHANGE LIVER NEC] Onset: 05-31-2022 Chronic Other lower respiratory disease (4 sources) Shortness of breath; Translations: [SHORTNESS OF BREATH] Onset: 09-07-2022 Episodic Other nervous system disorders (12 sources) Chronic pain; Translations: [Other chronic pain] Chronic Other nervous system disorders (12 sources) Sleep-wake schedule disorder, delayed phase type; Translations: [Circadian rhythm sleep disorder, delayed sleep phase type] Chronic Other nervous system disorders (4 sources) Other chronic pain Onset: 11-10-2021 Resolved: 12-06-2021 Chronic Other nervous system disorders (1 source) Circadian rhythm sleep disorder, delayed sleep phase type Chronic Other nutritional; endocrine; and metabolic disorders (20 sources) Body mass index 40+ - severely obese; Translations: [Body mass index (BMI) 50.0-59.9, adult] Chronic Other nutritional; endocrine; and metabolic disorders (12 sources) Hypomagnesemia; Translations: [Hypomagnesemia] Chronic Other nutritional; endocrine; and metabolic disorders (6 sources) Morbid obesity; Translations: [Morbid (severe) obesity due to excess calories] Chronic Other nutritional; endocrine; and metabolic disorders (4 sources) Morbid (severe) obesity due to excess calories; Translations: [MORBID SEVERE OBES D/T EXCESS BONY] Onset: 09-11-2022 Chronic Other nutritional; endocrine; and metabolic disorders (1 source) Body mass index (BMI) 50.0-59.9, adult; Translations: [BODY MASS INDEX BMI 50.0-59.9 ADULT] Onset: 09-11-2022 Chronic Other nutritional; endocrine; and metabolic disorders (1 source) Body mass index (BMI) 45.0-49.9, adult; Translations: [BODY MASS INDEX BMI 45.0-49.9 ADULT] Onset: 10-04-2021 Chronic Residual codes; unclassified (12 sources) Sleep apnea; Translations: [Sleep apnea, unspecified] Chronic Residual codes; unclassified (19 sources) Obstructive sleep apnea syndrome; Translations: [Obstructive sleep apnea (adult) (pediatric)] Chronic Residual codes; unclassified (2 sources) Obstructive sleep apnea (adult) (pediatric); Translations: [OBSTRUCTIVE SLEEP APNEA] Onset: 09-11-2022 Chronic Residual codes; unclassified (2 sources) Localized edema; Translations: [LOCALIZED EDEMA] Onset: 09-11-2022 Episodic Spondylosis; intervertebral disc disorders; other back problems (20 sources) Intervertebral disc prolapse; Translations: [Other intervertebral disc displacement, thoracolumbar region] Onset: 09-29-2021 Resolved: 12-06-2021 Chronic Syncope (2 sources) Syncope and collapse; Translations: [Syncope and collapse] Onset: 03-14-2023 Episodic Unclassified (1 source) CHRN KIDNEY DISEASE STG 3 UNSP; Translations: [CHRN KIDNEY DISEASE STG 3 UNSP] Onset: 03-27-2022 Unclassified (1 source) LOW BACK PAIN, UNSPECIFIED; Translations: [LOW BACK PAIN, UNSPECIFIED] Onset: 03-27-2022 Unclassified (3 sources) CONTACT W/AND (SUSP) EXPOS COVID-19; Translations: [CONTACT W/AND (SUSP) EXPOS COVID-19] Onset: 12-25-2021 Past or Other Problems Problem Classification Problem Date Documented Da te Episodic/Chronic Abdominal hernia (1 source) Ventral hernia without obstruction or gangrene; Translations: [VENTRAL HERNIA W/O OBST/GANGRENE] Onset: 05-31-2022 Episodic Abdominal pain (4 sources) Unspecified abdominal pain; Translations: [UNSPECIFIED ABDOMINAL PAIN] Onset: 02-21-2022 Episodic Chronic kidney disease (1 source) Chronic kidney disease Deficiency and other anemia (4 sources) Anemia, unspecified; Translations: [ANEMIA UNSPECIFIED] Onset: 01-23-2022 Episodic Fluid and electrolyte disorders (5 sources) Hyperkalemia; Translations: [HYPERKALEMIA] Onset: 10-04-2021 Episodic Headache; including migraine (1 source) Headache; including migraine Intestinal infection (1 source) Enterocolitis due to Clostridium difficile, not specified as recurrent; Translations: [ENTROCOLIT DT C DIF NOT SPEC REC] Onset: 12-25-2021 Episodic Open wounds of head; neck; and trunk (4 sources) Unspecified open wound of unspecified part of neck, initial encounter; Translations: [UNS OPEN WOUND UNS PART NECK INIT] Onset: 01-12-2022 Episodic Other connective tissue disease (1 source) Pain in right leg; Translations: [PAIN IN RIGHT LEG] Onset: 05-31-2022 Episodic Other connective tissue disease (1 source) Arthrodesis status; Translations: [ARTHRODESIS STATUS] Onset: 01-14-2022 Episodic Other connective tissue disease (1 source) Myalgia, unspecified site; Translations: [MYALGIA UNSPECIFIED SITE] Onset: 12-25-2021 Episodic Other gastrointestinal disorders (4 sources) Diarrhea, unspecified; Translations: [DIARRHEA UNSPECIFIED] Onset: 11-30-2021 Episodic Other lower respiratory disease (1 source) Dyspnea, unspecified; Translations: [DYSPNEA UNSPECIFIED] Onset: 12-25-2021 Episodic Other lower respiratory disease (2 sources) Other forms of dyspnea; Translations: [Other forms of dyspnea] Onset: 09-29-2022 Episodic Other screening for suspected conditions (not mental disorders or infectious disease) (5 sources) Encounter for screening mammogram for malignant neoplasm of breast; Translations: [Abnormal findings on diagnostic imaging of other parts of musculoskeletal system] Onset: 03-27-2022 Episodic Residual codes; unclassified (1 source) Family history of malignant neoplasm of other organs or systems; Translations: [FAM HX MALIG NEOPLASM OTH ORGN/SYS] Onset: 04-02-2022 Episodic Residual codes; unclassified (1 source) Acquired absence of both cervix and uterus; Translations: [ACQUIRED ABSENCE BOTH CERVIX AND UTERUS] Onset: 02-21-2022 Episodic Residual codes; unclassified (1 source) Acquired absence of ovaries, bilateral; Translations: [ACQUIRED ABSENCE OVARIES BILATERAL] Onset: 02-21-2022 Episodic Residual codes; unclassified (4 sources) Procedure and treatment not carried out due to patient leaving prior to being seen by health care provider; Translations: [PROC AND TX NOT CARRIED OUT PT LEAVE] Onset: 02-16-2022 Episodic Spondylosis; intervertebral disc disorders; other back problems (20 sources) Radiculopathy, lumbar region; Translations: [Chronic low back pain] Onset: 08-30-2021 Resolved: 08-30-2021 Episodic Unclassified (1 source) CONTACT W/AND (SUSP) EXPOS COVID-19; Translations: [CONTACT W/AND (SUSP) EXPOS COVID-19] Onset: 12-21-2021 Results Test Name Value Interpretation Reference Range Facility Office Visiton 03-14-2023 Follow-up visit [id number] Nithin Humphreys A 1970 F Date Provider Department Center 03/14/2023 [id number] SIDDIQUI [facility] No family history on file Level of Service:35106 NM OFFICE/OUTPATIENT ESTABLISHED MOD MDM 30-39 MIN Normal [facility] 37on 11-30-2022 37 -Stop hydrochlorothiazide and start Spironolactone 25 mg daily -Stop Lisinopril and start Entresto 2 day after stopping Lisinopril -Get labs 1 week after starting Entresto -Bring blood pressure machine to be checked out when you come for blood draw Normal [facility] Office Visiton 11-30-2022 Follow-up visit [id number] PetrNithin Patel 1970 Date Provider Department Center 11/30/2022 [id number] ARIAS MATTHEW [facility] No family history on file Level of Service:60709 NM OFFICE/OUTPATIENT ESTABLISHED MOD MDM 30-39 MIN Reason for Visit and Comments: Follow-up [127862] - Go over echo results [facility] Office Visiton 09-29-2022 Follow-up visit [id number] [place],Nithin Patel 1970 Date Provider Department Center 09/29/2022 [id number] ARIAS MATTHEW [facility] No family history on file Level of Service:22895 NM OFFICE/OUTPATIENT ESTABLISHED MOD MDM 30-39 MIN Reason for Visit and Comments: Follow-up [206345] - Pt is here for 1 year f/u - lots of symptoms pt states she been having swelling legs high BP and Shortness of breath pt states swelling started 2 month ago other symptoms started 1 month ago [facility] BNPon 09-07-2022 Natriuretic peptide B (Bld) [Mass/Vol] 391.0 pg/mL Normal <=900.0 [facility] Comment on above: Performed By: #### L IPID, BMP #### [facility] [address] [address] [address] Jag Waldrop CBC AUTO DIFFon 09-07-2022 BASO # 0.1 103/ul Normal 0.0-0.1 [facility] Comment on above: Performed By: #### L IPID, BMP #### [facility] [address] [place] [address] Dr. Jag Waldrop Basophils/100 WBC (Bld) 1.4 % Normal 0.2-2.0 [facility] Comment on above: Performed By: #### L IPID, BMP #### [facility] [address] [address] Dr. Jag Waldrop EO # 0.1 103/ul Normal 0.0-0.7 [facility] Comment on above: Performed By: #### L IPID, BMP #### [facility] [address] [address] Dr. Jag Waldrop Eosinophils/100 WBC (Bld) 1.6 % Normal 0.9-7.0 [facility] Comment on above: Performed By: #### L IPID, BMP #### [facility] [address] [address] Dr. Jag Waldrop Erythrocyte distribution width (RBC) [Ratio] 15.0 % Normal 11.0-15.0 [facility] Comment on above: Performed By: #### L IPID, BMP #### [facility] [address] [address] Dr. Jag Waldrop Hematocrit (Bld) [Volume fraction] 37.2 % Normal 36.0-48.0 [facility] Comment on above: Performed By: #### L IPID, BMP #### [facility] [address] [address] Dr. Jag Waldrop Hemoglobin (Bld) [Mass/Vol] 11.6 g/dL Critically low 12.0-16.0 [facility] Comment on above: Performed By: #### L IPID, BMP #### [facility] [address] [place] [address] Dr. Jag Waldrop IG # 0.01 10e3/ul Normal 0.00-0.03 [facility] Comment on above: Performed By: #### L IPID, BMP #### [facility] [address] [place] [address] Dr. Jag Waldrop IG % 0.2 % Normal 0.0-0.5 [facility] Comment on above: Performed By: #### L IPID, BMP #### [facility] [address] [place] [address] Dr. Jag Waldrop LYMPH # 1.9 103/ul Normal 1.2-3.8 [facility] Comment on above: Performed By: #### L IPID, BMP #### [facility] [address] [place] [address] Dr. Jag Waldrop Lymphocytes/100 WBC (Bld) 39.1 % Normal 20.5-60.0 [facility] Comment on above: Performed By: #### L IPID, BMP #### [facility] [address] [address] Dr. Jag Waldrop MANUAL DIFF REQ NO Normal [facility] Comment on above: Performed By: #### L IPID, BMP #### [facility] [address] [place] [address] Dr. Jag Waldrop MCH (RBC) [Entitic mass] 27.5 pg Normal 26.7-34.0 [facility] Comment on above: Performed By: #### L IPID, BMP #### [facility] [address] [place] [address] Dr. Jag Waldrop MCHC (RBC) [Mass/Vol] 31.2 g/dL Normal 29.9-35.2 [facility] Comment on above: Performed By: #### L IPID, BMP #### [facility] [address] [place] [address] Dr. Jag Waldrop MCV (RBC) [Entitic vol] 88.2 fL Normal 81.0-99.0 [facility] Comment on above: Performed By: #### L IPID, BMP #### [facility] [address] [place] [address] Dr. Jag Waldrop MONO # 0.3 103/ul Normal 0.3-0.8 [facility] Comment on above: Performed By: #### L IPID, BMP #### [facility] [address] [place] [address] Dr. Jag Waldrop Monocytes/100 WBC (Bld) 6.5 % Normal 1.7-12.0 [facility] Comment on above: Performed By: #### L IPID, BMP #### [facility] [address] [place] [address] Dr. Jag Waldrop NEUT # 2.5 103/ul Normal 1.4-6.5 [facility] Comment on above: Performed By: #### L IPID, BMP #### [facility] [address] [place] [address] Dr. Jag Waldrop Neutrophils/100 WBC (Bld) 51.2 % Normal 43.0-75.0 [facility] Comment on above: Performed By: #### L IPID, BMP #### [facility] [address] [place] [address] Dr. Jag Waldrop Platelet mean volume (Bld) [Entitic vol] 10.5 fL Normal 9.5-13.5 [facility] Comment on above: Performed By: #### L IPID, BMP #### [facility] [address] [place] [address] Dr. Jag Waldrop PLT 272 103/ul Normal 150-450 [facility] Comment on above: Performed By: #### L IPID, BMP #### [facility] [address] [place] [address] Dr. Jag Waldrop RBC 4.22 106/ul Normal 4.20-5.40 [facility] Comment on above: Performed By: #### L IPID, BMP #### [facility] [address] [place] [address] Dr. Jag Waldrop WBC 4.9 103/ul Normal 4.0-11.0 [facility] Comment on above: Performed By: #### L IPID, BMP #### [facility] [address] [place] [address] Dr. Jag Waldrop ER URINE PROFILEon 3 Bilirubin Ql (U) Negative Normal NEGATIVE [facility] Comment on above: Performed By: #### E RUR #### [facility] [address] [place], [place] [id number] Dr. Jag Waldrop Clarity (U) CLEAR Normal CLEAR [facility] Comment on above: Performed By: #### E RUR #### [facility] [address] [place] [address] Dr. Jag Waldrop Color (U) LT. YELLOW Normal YELLOW [facility] Comment on above: Performed By: #### E RUR #### [facility] [address] [place] [address] Dr. Jag Waldrop ERUAHD A micrscopic examination will be performed if indicated. Normal [facility] Comment on above: Performed By: #### E RUR #### [facility] [address] [address] Dr. Jag Waldrop Glucose Ql (U) Negative Normal NEGATIVE [facility] Comment on above: Performed By: #### E RUR #### [facility] [address] [address] Dr. Jag Waldrop Hemoglobin Ql (U) Negative Normal NEGATIVE [facility] Comment on above: Performed By: #### E RUR #### [facility] [address] [address] Dr. Jag Waldrop Ketones Ql (U) Negative Normal NEGATIVE [facility] Comment on above: Performed By: #### E RUR #### [facility] [address] [address] Dr. Jag Waldrop LEUKOCYTES Negative Normal NEGATIVE [facility] Comment on above: Performed By: #### E RUR #### [facility] [address] [place] [address] Dr. Jag Waldrop Nitrite Ql (U) Negative Normal NEGATIVE [facility] Comment on above: Performed By: #### E RUR #### [facility] [address] [place] [address] Dr. Jag Waldrop pH (U) 7.0 [pH] Normal 5-9 [facility] Comment on above: Performed By: #### E RUR #### [facility] [address] [place] [address] Dr. Jag Waldrop SPEC GRAVITY 1.010 Normal 1.005-<=1.025 [facility] Comment on above: Performed By: #### E RUR #### [facility] [address] [place] [address] Dr. Jag Waldrop UA PROTEIN Negative Normal NEGATIVE/ TRACE [facility] Comment on above: Performed By: #### E RUR #### [facility] [address] [place] [address] Dr. Jag Waldrop UR MICRO IND NOT INDICATED Normal [facility] Comment on above: Performed By: #### E RUR #### [facility] [address] [place] [address] Dr. Jag Waldrop Urobilinogen Qn (U) 0.2 {Chris'U}/dL Normal 0.2 - 1. 0 [facility] Comment on above: Performed By: #### E RUR #### [facility] [address] [place] [address] Dr. Jag Waldrop PROF 14(COMP METB)on 023 Albumin [Mass/Vol] 3.9 g/dL Normal 3.4-5.0 [facility] Comment on above: Performed By: #### L IPID, BMP #### [facility] [address] [place] [address] Dr. Jag Waldrop Albumin/Globulin [Mass ratio] 1.2 {ratio} Normal [facility] Comment on above: Performed By: #### L IPID, BMP #### [facility] [address] [place] [address] Dr. Jag Waldrop ALP [Catalytic activity/Vol] 95 U/L Normal 46-116 [facility] Comment on above: Performed By: #### L IPID, BMP #### [facility] [address] [place] [address] Dr. Jag Waldrop ALT [Catalytic activity/Vol] 31 U/L Normal 14-59 [facility] Comment on above: Performed By: #### L IPID, BMP #### [facility] [address] [place] [address] Dr. Jag Waldrop Anion gap [Moles/Vol] 12.7 mmol/L Normal [facility] Comment on above: Performed By: #### L IPID, BMP #### [facility] [address] [address] [address] Jag Waldrop AST [Catalytic activity/Vol] 34 U/L Normal 15-37 [facility] Comment on above: Performed By: #### L IPID, BMP #### [facility] [address] [place] [address] Dr. Jag Waldrop Bilirubin [Mass/Vol] 0.4 mg/dL Normal 0.2-1.0 [facility] Comment on above: Performed By: #### L IPID, BMP #### [facility] [address] [place] [address] Dr. Jag Waldrop Calcium [Mass/Vol] 9.1 mg/dL Normal 8.5-10.1 [facility] Comment on above: Performed By: #### L IPID, BMP #### [facility] [address] [place] [address] Dr. Jag Waldrop Chloride [Moles/Vol] 107 mmol/L Normal 98-107 [facility] Comment on above: Performed By: #### L IPID, BMP #### [facility] [address] [place] [address] Dr. Jag Waldrop CO2 [Moles/Vol] 28.1 mmol/L Normal 21.0-32.0 [facility] Comment on above: Performed By: #### L IPID, BMP #### [facility] [address] [place] [address] Dr. Jag Waldrop Creatinine [Mass/Vol] 1.18 mg/dL Critically high 0.55-1.02 [facility] Comment on above: Performed By: #### L IPID, BMP #### [facility] [address] [place] [address] Dr. Jag Waldrop EGFR-AF PORTUGUESE 59 mL/min/1.73m2 Critically low >=60 [facility] Comment on above: Performed By: #### L IPID, BMP #### [facility] [address] [place] [address] Dr. Jag Waldrop EGFR-NON AF PORTUGUESE 48 mL/min/1.73m2 Critically low >=60 [facility] Comment on above: Performed By: #### L IPID, BMP #### [facility] [address] [place] [address] Dr. Jag Waldrop Globulin (S) [Mass/Vol] 3.3 g/dL Normal [facility] Comment on above: Performed By: #### L IPID, BMP #### [facility] [address] [address] [address] Jag Waldrop Glucose [Mass/Vol] 111 mg/dL Critically high 74-106 [facility] Comment on above: Performed By: #### L IPID, BMP #### [facility] [address] [place] [address] Dr. Jag Waldrop Potassium [Moles/Vol] 3.8 mmol/L Normal 3.5-5.1 [facility] Comment on above: Performed By: #### L IPID, BMP #### [facility] [address] [place] [address] Dr. Jag Waldrop Protein [Mass/Vol] 7.2 g/dL Normal 6.4-8.2 [facility] Comment on above: Performed By: #### L IPID, BMP #### [facility] [address] [place] [address] Dr. Jag Waldrop Sodium [Moles/Vol] 144 mmol/L Normal 136-145 [facility] Comment on above: Performed By: #### L IPID, BMP #### [facility] [address] [place] [address] Dr. Jag Waldrop Urea nitrogen [Mass/Vol] 19.0 mg/dL Critically high 7.0-18.0 [facility] Comment on above: Performed By: #### L IPID, BMP #### [facility] [address] [place] [address] Dr. Jag Waldrop Urea nitrogen/Creatinine [Mass ratio] 16.1 mg/mg Normal [facility] Comment on above: Performed By: #### L IPID, BMP #### [facility] [address] [address] [address] Jag Waldrop PROTIMEon 09-07-2022 INR Coag (PPP) [Relative time] {INR} Normal [facility] Comment on above: Performed By: #### P T #### [facility] [address] [address] [address] Jag Waldrop INR GUIDELINES SEE BELOW Normal [facility] Comment on above: Result Comment: MARTIN RED INR: 2.0 - 3.0 CONDITIONS NOT LISTED BELOW 2.5 - 3.5 FOR PROSTHETIC HEART VALVE REPLACEMENT 2.5 - 3.5 RECURRENT THROMBOSIS Performed By: #### P T #### [facility] [address] [address] [address] Jag Waldrop PT Coag (PPP) [Time] 9.7 s Normal 9.0-11.6 [facility] Comment on above: Performed By: #### P T #### [facility] [address] [place] [address] Dr. Jag Waldrop TROPONIN, HIGH SENSITIVITYon 09-07-2022 HSTROP 17.8 pg/mL Normal 4.0-51.3 [facility] Comment on above: Result Comment: CUT- OFF POINTS HAVE BEEN ESTABLISHED BASED ON THE FOURTH UNIVERSAL DEFINITIONS OF MYOCARDIAL INFARCTION. THE UPPER REFERENCE LIMIT (URL) OF TROPONIN, DEFINED THE 99TH PERCENTILE OF cTnI DISTRIBUTION IN A REFERENCE POPULATION, HAS BEEN CONFIRMED THE DECISION THRESHOLD FOR [place] DIAGNOSIS. Performed By: #### L IPID, BMP #### [facility] [address] [place] [address] Dr. Jag Waldrop XR CHEST 2 Von 09-07-2022 XR CHEST 2 V XR CHEST 2 V COMPARISON: None. CLINICAL HISTORY: PLEURODYNIA TECHNIQUE: 2 views FINDINGS: The cardiac silhouette is enlarged, stable. The pulmonary vascular pattern is normal. The lungs are clear and the pleural margins are sharp. There are no significant skeletal abnormalities. IMPRESSION: CARDIOMEGALY. NO ACUTE RADIOGRAPHIC FINDINGS. Electronically authenticated by: WAN JENKINS Date: 2022-09-07 16:47 Normal [facility] GLYCOHEMOGLOBIN A1Con 2022 ADA RECOMMENDATION SEE BELOW Normal [facility] Comment on above: Result Comment: ADA RECOMMENDED LIMIT 4.0 - 6.0 ADA THERAPEUTIC TARGET < 7.0 ACTION SUGGESTED > 7.0 Performed By: #### L TESHA, BMP #### [facility] [address] [place] [address] Dr. Jag Waldrop Glucose [Mass/Vol] 120 mg/dL Normal [facility] Comment on above: Performed By: #### L TESHA, BMP #### [facility] [address] [place] [address] Dr. Jag Waldrop HbA1c (Bld) [Mass fraction] 5.8 % Normal 4.5-6.2 [facility] Comment on above: Performed By: #### L TESHA BMP #### [facility] [address] [place] [address] Dr. Jag Waldrop PROF CHEM 8 (BAS METB)on Anion gap [Moles/Vol] 13.2 mmol/L Normal [facility] Comment on above: Performed By: #### B MP #### [facility] [address] [place] [address] Dr. Jag Waldrop Calcium [Mass/Vol] 9.0 mg/dL Normal 8.5-10.1 [facility] Comment on above: Performed By: #### B MP #### [facility] [address] [place] [address] Dr. Jag Waldrop Chloride [Moles/Vol] 107 mmol/L Normal 98-107 [facility] Comment on above: Performed By: #### B MP #### [facility] [address] [place] [address] Dr. Jag Waldrop CO2 [Moles/Vol] 26.3 mmol/L Normal 21.0-32.0 [facility] Comment on above: Performed By: #### B MP #### [facility] [address] [place] [address] Dr. Jag Waldrop Creatinine [Mass/Vol] 1.03 mg/dL Critically high 0.55-1.02 [facility] Comment on above: Performed By: #### B MP #### [facility] [address] [address] [address] Jag Waldrop EGFR-AF PORTUGUESE >60 Normal >=60 [facility] Comment on above: Performed By: #### B MP #### [facility] [address] [address] [address] Jag Waldrop EGFR-NON AF PORTUGUESE 56 mL/min/1.73m2 Critically low >=60 [facility] Comment on above: Performed By: #### B MP #### [facility] [address] [address] [address] Jag Waldrop Glucose [Mass/Vol] 149 mg/dL Critically high 74-106 [facility] Comment on above: Performed By: #### B MP #### [facility] [address] [address] [address] Jag Waldrop Potassium [Moles/Vol] 4.5 mmol/L Normal 3.5-5.1 [facility] Comment on above: Performed By: #### B MP #### [facility] [address] [address] [address] Jag Waldrop Sodium [Moles/Vol] 142 mmol/L Normal 136-145 [facility] Comment on above: Performed By: #### B MP #### [facility] [address] [address] [address] Jag Waldrop Urea nitrogen [Mass/Vol] 22.0 mg/dL Critically high 7.0-18.0 [facility] Comment on above: Performed By: #### B MP #### [facility] [address] [address] [address] Jag Waldrop Urea nitrogen/Creatinine [Mass ratio] 21.4 mg/mg Normal [facility] Comment on above: Performed By: #### B MP #### [facility] [id number] Jag Waldrop CT ABD/PELVIS WO CONon 05-30 CT ABD/PELVIS WO CON EXAMINATION: CT ABD/PELVIS WO CON, 05/29/2022 8:38 PM EST HISTORY: Right lower quadrant pain COMPARISON: CT abdomen pelvis 05/17/2021 TECHNIQUE: CT scan of the abdomen and pelvis was performed without IV contrast. CT dose reduction technique was used, including Automated Exposure Control. FINDINGS: Visualized lung bases demonstrate mild right middle lobe and left upper lobe lingular linear lung atelectasis/scar. Visualized cardiac apex demonstrates borderline prominent heart size. Minimal hiatal hernia. Status post gastric bypass. Moderate hepatic steatosis and hepatomegaly. Gallbladder, pancreas, spleen, adrenal glands, underdistended urinary bladder, and other pelvic structures are unremarkable. Uterus is not seen or surgically absent. The appendix is unremarkable. No appendiceal wall thickening or appendiceal dilation. No periappendiceal fluid or stranding. Lobulated bilateral kidneys with probable areas of renal cortical scar, similar to the prior CT 05/17/2021. Moderate colonic diverticula without pericolonic inflammatory stranding. No evidence for small bowel obstruction, large ascites, or free air. A developing 2.2 cm oval cystic or fluid collection at the right lower quadrant anterior abdominal wall fat-containing hernia anterior to the lower abdominal rectus sheath musculature (image 127 series 4). Multilevel intervertebral disc degeneration throughout the visualized thoracic and lumbar levels with disc osteophyte complex greatest at T12-L1. Prior laminectomy at this level. No acute bony abnormality. IMPRESSION: A developing 2.2 cm oval cystic or fluid collection at the right lower quadrant anterior abdominal wall fat-containing hernia anterior to the lower abdominal rectus sheath musculature (image 127 series 4). Finding reflects underlying small right lower quadrant anterior abdominal wall hernia with mild inflammation. Correlate with point tenderness for pain at this region. Targeted ultrasound can further characterize this fluid collection. No CT evidence for acute appendicitis. Appendix is unremarkable in caliber. Moderate colonic diverticula without pericolonic inflammatory stranding. Moderate hepatic steatosis and hepatomegaly. Electronically authenticated by: NATHAN COLE Date: 2022-05-29 22:50 Normal [facility] US KVNG DOP LEG RTon 05-30-19 23 US KVNG DOP LEG RT EXAM: US KVNG DOP LEG RT HISTORY: Pain COMPARISON: None. TECHNIQUE: Ultrasonography of the right lower extremity is performed from the groin to the calf. FINDINGS: The deep venous structures demonstrate normal compressibility. No intraluminal thrombus. The superficial venous structures are patent. Normal color Doppler images with spectral waveforms. IMPRESSION: No evidence for deep or superficial venous thrombosis. Electronically authenticated by: LUZ COELLO Date: 2022-05-29 22:42 Normal [facility] CBC AUTO DIFFon 05-29-2022 BASO # 0.1 103/ul Normal 0.0-0.1 [facility] Comment on above: Performed By: #### L IPID, BMP #### [facility] [address] [place] [address] Dr. Jag Waldrop Basophils/100 WBC (Bld) 0.7 % Normal 0.2-2.0 [facility] Comment on above: Performed By: #### L IPID, BMP #### [facility] [address] [address] Dr. Jag Waldrop EO # 0.1 103/ul Normal 0.0-0.7 [facility] Comment on above: Performed By: #### L IPID, BMP #### [facility] [address] [address] Dr. Jag Waldrop Eosinophils/100 WBC (Bld) 1.5 % Normal 0.9-7.0 [facility] Comment on above: Performed By: #### L IPID, BMP #### [facility] [address] [address] Dr. Jag Waldrop Erythrocyte distribution width (RBC) [Ratio] 13.9 % Normal 11.0-15.0 [facility] Comment on above: Performed By: #### L IPID, BMP #### [facility] [address] [address] Dr. Jag Waldrop Hematocrit (Bld) [Volume fraction] 34.2 % Critically low 36.0-48.0 [facility] Comment on above: Performed By: #### L IPID, BMP #### [facility] [address] [address] Dr. Jag Waldrop Hemoglobin (Bld) [Mass/Vol] 10.9 g/dL Critically low 12.0-16.0 [facility] Comment on above: Performed By: #### L IPID, BMP #### [facility] [address] [place] [address] Dr. Jag Waldrop IG # 0.02 10e3/ul Normal 0.00-0.03 [facility] Comment on above: Performed By: #### L IPID, BMP #### [facility] [address] [place] [address] Dr. Jag Waldrop IG % 0.2 % Normal 0.0-0.5 [facility] Comment on above: Performed By: #### L IPID, BMP #### [facility] [address] [address] [address] Jag Waldrop LYMPH # 2.5 103/ul Normal 1.2-3.8 [facility] Comment on above: Performed By: #### L IPID, BMP #### [facility] [address] [place] [address] Dr. Jag Waldrop Lymphocytes/100 WBC (Bld) 30.4 % Normal 20.5-60.0 [facility] Comment on above: Performed By: #### L IPID, BMP #### [facility] [address] [address] Dr. Jag Waldrop MANUAL DIFF REQ NO Normal [facility] [place] Comment on above: Performed By: #### L IPID, BMP #### [facility] [address] [place] [address] Dr. Jag Waldrop MCH (RBC) [Entitic mass] 27.1 pg Normal 26.7-34.0 [facility] Comment on above: Performed By: #### L IPID, BMP #### [facility] [address] [place] [address] Dr. Jag Waldrop MCHC (RBC) [Mass/Vol] 31.9 g/dL Normal 29.9-35.2 [facility] Comment on above: Performed By: #### L IPID, BMP #### [facility] [address] [place] [address] Dr. Jag Waldrop MCV (RBC) [Entitic vol] 85.1 fL Normal 81.0-99.0 [facility] Comment on above: Performed By: #### L IPID, BMP #### [facility] [address] [place] [address] Dr. Jag Waldrop MONO # 0.5 103/ul Normal 0.3-0.8 [facility] Comment on above: Performed By: #### L IPID, BMP #### [facility] [address] [address] [address] Jag Waldrop Monocytes/100 WBC (Bld) 6.7 % Normal 1.7-12.0 [facility] Comment on above: Performed By: #### L IPID, BMP #### [facility] [address] [address] [address] Jag Waldrop NEUT # 4.9 103/ul Normal 1.4-6.5 [facility] Comment on above: Performed By: #### L IPID, BMP #### [facility] [address] [address] [address] Jag Waldrop Neutrophils/100 WBC (Bld) 60.5 % Normal 43.0-75.0 [facility] Comment on above: Performed By: #### L IPID, BMP #### [facility] [address] [place] [address] Dr. Jag Waldrop Platelet mean volume (Bld) [Entitic vol] 10.3 fL Normal 9.5-13.5 [facility] Comment on above: Performed By: #### L IPID, BMP #### [facility] [address] [place] [address] Dr. Jag Waldrop PLT 256 103/ul Normal 150-450 [facility] Comment on above: Performed By: #### L IPID, BMP #### [facility] [address] [address] [address] Jag Waldrop RBC 4.02 106/ul Critically low 4.20-5.40 [facility] [place] Comment on above: Performed By: #### L IPID, BMP #### [facility] [address] [address] [address] Jag Waldrop WBC 8.1 103/ul Normal 4.0-11.0 [facility] Comment on above: Performed By: #### L IPID, BMP #### [facility] [address] [address] Dr. Jag Waldrop ER URINE PROFILEon 3 Bilirubin Ql (U) Negative Normal NEGATIVE [facility] Comment on above: Performed By: #### L IPID, BMP #### [facility] [address] [address] Dr. Jag Waldrop Clarity (U) CLEAR Normal CLEAR [facility] Comment on above: Performed By: #### L IPID, BMP #### [facility] [address] [place] [address] Dr. Jag Waldrop Color (U) YELLOW Normal YELLOW [facility] Comment on above: Performed By: #### L IPID, BMP #### [facility] [address] [place] [address] Dr. Jag Waldrop ERUAHTabitha A micrscopic examination will be performed if indicated. Normal [facility] Comment on above: Performed By: #### L IPID, BMP #### [facility] [address] [place] [address] Dr. Jag Waldrop Glucose Ql (U) Negative Normal NEGATIVE [facility] Comment on above: Performed By: #### L IPID, BMP #### [facility] [address] [address] Dr. Jag Waldrop Hemoglobin Ql (U) Negative Normal NEGATIVE [facility] Comment on above: Performed By: #### L IPID, BMP #### [facility] [address] [address] Dr. Jag Waldrop Ketones Ql (U) 15 mg/dl Abnormal NEGATIVE [facility] Comment on above: Performed By: #### L IPID, BMP #### [facility] [address] [place] [address] Dr. Jag Waldrop LEUKOCYTES TRACE Abnormal NEGATIVE [facility] Comment on above: Performed By: #### L IPID, BMP #### [facility] [address] [place] [address] Dr. Jag Waldrop Nitrite Ql (U) Negative Normal NEGATIVE [facility] Comment on above: Performed By: #### L IPID, BMP #### [facility] [address] [place] [address] Dr. Jag Waldrop pH (U) 5.5 [pH] Normal 5-9 [facility] Comment on above: Performed By: #### L IPID, BMP #### [facility] [address] [place] [address] Dr. Jag Waldrop SPEC GRAVITY 1.020 Normal 1.005-<=1.025 [facility] [place] Comment on above: Performed By: #### L IPID, BMP #### [facility] [address] [place] [address] Dr. Jag Waldrop UA PROTEIN Negative Normal NEGATIVE/ TRACE [facility] Comment on above: Performed By: #### L IPID, BMP #### [facility] [address] [place] [address] Dr. Jag Waldrop UR MICRO IND INDICATED Normal [facility] Comment on above: Performed By: #### L IPID, BMP #### [facility] [address] [place] [address] Dr. Jag Waldrop Urobilinogen Qn (U) 0.2 {Chris'U}/dL Normal 0.2 - 1. 0 [facility] Comment on above: Performed By: #### L IPID, BMP #### [facility] [address] [place] [address] Dr. Jag Waldrop PROF CHEM 8 (BAS METB)on Anion gap [Moles/Vol] 14.2 mmol/L Normal [facility] Comment on above: Performed By: #### B MP #### [facility] [address] [place] [address] Dr. Jag Waldrop Calcium [Mass/Vol] 9.1 mg/dL Normal 8.5-10.1 [facility] Comment on above: Performed By: #### B MP #### [facility] [address] [place] [address] Dr. Jag Waldrop Chloride [Moles/Vol] 106 mmol/L Normal 98-107 [facility] Comment on above: Performed By: #### B MP #### [facility] [address] [place] [address] Dr. Jag Waldrop CO2 [Moles/Vol] 23.5 mmol/L Normal 21.0-32.0 [facility] Comment on above: Performed By: #### B MP #### [facility] [address] [address] [address] Jag Waldrop Creatinine [Mass/Vol] 1.29 mg/dL Critically high 0.55-1.02 [facility] Comment on above: Performed By: #### B MP #### [facility] [address] [address] [address] Jag Waldrop EGFR-AF PORTUGUESE 53 mL/min/1.73m2 Critically low >=60 [facility] Comment on above: Performed By: #### B MP #### [facility] [address] [address] [address] Jag Waldrop EGFR-NON AF [place]UGUESE 44 mL/min/1.73m2 Critically low >=60 [facility] Comment on above: Performed By: #### B MP #### [facility] [address] [address] [address] Jag Waldrop Glucose [Mass/Vol] 93 mg/dL Normal 74-106 [facility] Comment on above: Performed By: #### B MP #### [facility] [address] [address] [address] Jag Waldrop Potassium [Moles/Vol] 3.7 mmol/L Normal 3.5-5.1 [facility] Comment on above: Performed By: #### B MP #### [facility] [address] [address] [address] Jag Waldrop Sodium [Moles/Vol] 140 mmol/L Normal 136-145 [facility] Comment on above: Performed By: #### B MP #### [facility] [address] [address] [address] aJg Waldrop Urea nitrogen [Mass/Vol] 24.0 mg/dL Critically high 7.0-18.0 [facility] Comment on above: Performed By: #### B MP #### [facility] [address] [address] [address] Jag Waldrop Urea nitrogen/Creatinine [Mass ratio] 18.6 mg/mg Normal [facility] Comment on above: Performed By: #### B MP #### [facility] [address] [place] [address] Dr. Jag Waldrop URINE MICROSCOPIC ONLYon BACTERIA TRACE Abnormal NONE SEEN [facility] Comment on above: Performed By: #### L IPID, BMP #### [facility] [address] [place] [address] Dr. Jag Waldrop Bacteria identified Cx Nom (U) NOT INDICATED Normal [facility] Comment on above: Performed By: #### L IPID, BMP #### [facility] [address] [place] [address] Dr. Jag Waldrop CAST NONE SEEN Normal NONE SEEN [facility] Comment on above: Performed By: #### L IPID, BMP #### [facility] [address] [place] [address] Dr. Jag Waldrop Crystals LM Nom (Urine sed) NONE SEEN Normal NONE SEEN [facility] Comment on above: Performed By: #### L IPID, BMP #### [facility] [address] [place] [address] Dr. Jag Waldrop Epithelial cells LM Ql (Urine sed) RARE Normal NONE SEEN /RARE [facility] Comment on above: Performed By: #### L IPID, BMP #### [facility] [address] [place] [address] Dr. Jag Waldrop MUCOUS NONE SEEN Normal NONE SEEN [facility] Comment on above: Performed By: #### L IPID, BMP #### [facility] [address] [place] [address] Dr. Jag Waldrop RBC 5-10 Abnormal 0-2 [facility] Comment on above: Performed By: #### L IPID, BMP #### [facility] [address] [place] [address] Dr. Jag Waldrop WBC 0-2 Abnormal NONE SEEN [facility] Comment on above: Performed By: #### L IPID, BMP #### [facility] [address] [place] [address] Dr. Jag Waldrop MG MAMM SCREEN 3D ORESTES CADon 12-14-2022 MG MAMM SCREEN 3D ORESTES CAD Patient: PETR, SHERLY A. Exam Date: 03/29/2022 : 1970 Gender:F Ordering : AGUSTINA JANENE LEW [employer] Admission #: [id number] Family : Order #: [id number] CLICK HERE TO VIEW EXAM RADIOLOGY REPORT PROCEDURE: MAMMOGRAM SCREENING 3D BILATERAL CAD COMPARISON: MG MAMM SCREEN 3D ORESTES CAD, 12/30/2020. MG MAMM SCREEN ORESTES W CAD, 06/06/2016. INDICATIONS: Screening mammography Calculator Name NCI Breast Cancer Risk Assessment Tool 5 Year Breast Cancer Risk 1.00% Lifetime Breast Cancer Risk 8.90% Personal Breast Cancer No Personal Ovarian Cancer No Treatments None Family Cancers Mother with head/neck cancer at age 73. LOCATION: [facility] BREAST COMPOSITION: Scattered areas fibroglandular density. FINDINGS: DIAGNOSTIC CATEGORY 2--BENIGN FINDING: RIGHT BREAST: No significant suspicious finding. Scattered benign-appearing calcifications are present. No significant change has occurred. LEFT BREAST: No significant suspicious finding. Scattered benign-appearing calcifications are present. No significant change has occurred. RECOMMENDATIONS: ROUTINE MAMMOGRAM AND CLINICAL EVALUATION IN 12 MONTHS. PLEASE NOTE: A NORMAL MAMMOGRAM DOES NOT EXCLUDE THE POSSIBILITY OF BREAST CANCER. A CLINICALLY SUSPICIOUS PALPABLE LUMP SHOULD BE BIOPSIED. Dictated by: Kathy Hendricks M.D. on 03/29/2022 at 15:03 Approved by: Kathy Hendricks M.D. on 03/29/2022 at 15:31 Normal [facility] MRI LSPINE WO W CONon 2021 MRI LSPINE WO W CON EXAMINATION: MRI LSP INE WO W CON HISTORY: Spinal stenosis ; chronic right side thoracic and lumbar pain radiating into right groin; no known injury COMPARISON: MRI L-spine 08/09/2021 TECHNIQUE: A variety of imaging planes and parameters were utilized for visualization of suspected pathology. FINDINGS: For the purposes of numbering, sagittal T2 image # 10 extends from the T11 vertebral body superiorly to the S3 level inferiorly. PARASPINAL AREA: Normal with no visible mass. BONES: No fracture, pars defect, or osseous lesion. CORD/CAUDA EQUINA: Normal caliber, contour, and signal intensity. DISC LEVELS: 12-L1: Moderate central canal and right foramen narrowing secondary to prominent posterior disc protrusion into the central area up to 8 mm, and right and right foramen. Mild disc at reduction. No significant facet arthropathy. L1-L2: No significant disc/facet abnormality, spinal stenosis, or foraminal stenosis. L2-L3: No significant disc/facet abnormality, spinal stenosis, or foraminal stenosis. L3-L4: No significant disc/facet abnormality, spinal stenosis, or foraminal stenosis. L4-L5: No significant disc/facet abnormality, spinal stenosis, or foraminal stenosis. L5-S1: Early degenerative disc disease is present without focal protrusion or neural impingement. IMPRESSION: 1. T12-L1 moderate central canal and right foramen narrowing secondary to broad-based disc protrusion versus 2 separate protrusions, one into the central canal 8 mm and one into the right foramen; progressed since prior study. Electronically authenticated by: KATHY HENDRICKS Date: 2022-03-23 11:26 Normal [facility] MRI TSPINE WO W CONon 2021 MRI TSPINE WO W CON EXAMINATION: MRI TSP INE WO W CON HISTORY: Spinal stenosis ; chronic right side thoracic and lumbar pain radiating into right groin COMPARISON: MRI lumbar spine 03/23/2022, 08/09/2021, CT thoracic spine 02/19/2022 TECHNIQUE: Axial T1 and T2; Sagittal T1, T2, and STIR sequences. Images were performed without and with Dotarem contrast. FINDINGS: CORD: Normal caliber, contour, and signal intensity. BONES: No fracture, pars defect, or osseous lesion. DISCS: Moderate central canal and right foramen narrowing seen due to prominent posterior disc protrusion into the central canal approximately 8 mm, the right neural foramen. Mild disc height reduction. No significant facet arthropathy. PARASPINAL AREA: No visible mass. OTHER: Negative. No abnormal contrast enhancement. IMPRESSION: 1. Moderate central canal and right foramen narrowing at T12-L1 secondary to broad-based disc protrusion; slightly increased compared to 08/09/2021. Electronically authenticated by: KATHY HENDRICKS Date: 2022-03-23 12:50 Normal [facility] PROF CHEM 8 (BAS METB)on Anion gap [Moles/Vol] 11.8 mmol/L Normal [facility] Comment on above: Performed By: #### P OCGLUC #### [facility] [address] [address] Dr. Jag Waldrop Calcium [Mass/Vol] 9.0 mg/dL Normal 8.5-10.1 [facility] Comment on above: Performed By: #### P OCGLUC #### [facility] [address] [address] [address] Jag Waldrop Chloride [Moles/Vol] 107 mmol/L Normal 98-107 [facility] Comment on above: Performed By: #### P OCGLUC #### [facility] [address] [address] [address] Jag Waldrop CO2 [Moles/Vol] 30.2 mmol/L Normal 21.0-32.0 [facility] Comment on above: Performed By: #### P OCGLUC #### [facility] [address] [address] [address] Jag Waldrop Creatinine [Mass/Vol] 1.32 mg/dL Critically high 0.55-1.02 [facility] Comment on above: Performed By: #### P OCGLUC #### [facility] [address] [address] [address] Jag Waldrop EGFR-AF [place]UGUESE 51 mL/min/1.73m2 Critically low >=60 [facility] Comment on above: Performed By: #### P OCGLUC #### [facility] [address] [address] [address] Jag Waldrop EGFR-NON AF [place] 42 mL/min/1.73m2 Critically low >=60 [facility] Comment on above: Performed By: #### P OCGLUC #### [facility] [address] [address] [address] Jag Waldrop Glucose [Mass/Vol] 117 mg/dL Critically high 74-106 [facility] Comment on above: Performed By: #### P OCGLUC #### [facility] [address] [address] [address] Jag Waldrop Potassium [Moles/Vol] 4.0 mmol/L Normal 3.5-5.1 [facility] Comment on above: Performed By: #### P OCGLUC #### [facility] [address] [address] [address] Jag Waldrop Sodium [Moles/Vol] 145 mmol/L Normal 136-145 [facility] Comment on above: Performed By: #### P OCGLUC #### [facility] [address] [address] Dr. Jag Waldrop Urea nitrogen [Mass/Vol] 23.0 mg/dL Critically high 7.0-18.0 [facility] Comment on above: Performed By: #### P OCGLUC #### [facility] [address] [address] Dr. Jag Waldrop Urea nitrogen/Creatinine [Mass ratio] 17.4 mg/mg Normal [facility] Comment on above: Performed By: #### P OCGLUC #### [facility] [address] [place] [address] Dr. Jag Wadlrop CBC AUTO DIFFon 02-19-2022 BASO # 0.1 103/ul Normal 0.0-0.1 [facility] Comment on above: Performed By: #### P OCGLUC #### [facility] [address] [address] Dr. Jag Waldrop Basophils/100 WBC (Bld) 1.0 % Normal 0.2-2.0 [facility] Comment on above: Performed By: #### P OCGLUC #### [facility] [address] [address] Dr. Jag Waldrop EO # 0.1 103/ul Normal 0.0-0.7 [facility] Comment on above: Performed By: #### P OCGLUC #### [facility] [address] [address] Dr. Jag Waldrop Eosinophils/100 WBC (Bld) 1.9 % Normal 0.9-7.0 [facility] Comment on above: Performed By: #### P OCGLUC #### [facility] [address] [address] Dr. Jag Waldrop Erythrocyte distribution width (RBC) [Ratio] 13.2 % Normal 11.0-15.0 [facility] Comment on above: Performed By: #### P OCGLUC #### [facility] [address] [address] [address] Jag Waldrop Hematocrit (Bld) [Volume fraction] 36.7 % Normal 36.0-48.0 [facility] Comment on above: Performed By: #### P OCGLUC #### [facility] [address] [address] [address] Jag Waldrop Hemoglobin (Bld) [Mass/Vol] 11.4 g/dL Critically low 12.0-16.0 [facility] Comment on above: Performed By: #### P OCGLUC #### [facility] [address] [address] [address] Jag Waldrop IG # 0.03 10e3/ul Normal 0.00-0.03 [facility] Comment on above: Performed By: #### P OCGLUC #### [facility] [address] [address] Dr. Jag Waldrop IG % 0.5 % Normal 0.0-0.5 [facility] Comment on above: Performed By: #### P OCGLUC #### [facility] [address] [address] Dr. Jag Waldrop LYMPH # 2.1 103/ul Normal 1.2-3.8 [facility] Comment on above: Performed By: #### P OCGLUC #### [facility] [address] [place] [address] Dr. Jag Waldrop Lymphocytes/100 WBC (Bld) 34.1 % Normal 20.5-60.0 [facility] Comment on above: Performed By: #### P OCGLUC #### [facility] [address] [place] [address] Dr. Jag Waldrop MANUAL DIFF REQ NO Normal [facility] Comment on above: Performed By: #### P OCGLUC #### [facility] [address] [address] Dr. Jag Waldrop MCH (RBC) [Entitic mass] 28.4 pg Normal 26.7-34.0 [facility] Comment on above: Performed By: #### P OCGLUC #### [facility] [address] [address] [address] Jag Waldrop MCHC (RBC) [Mass/Vol] 31.1 g/dL Normal 29.9-35.2 [facility] Comment on above: Performed By: #### P OCGLUC #### [facility] [address] [address] Dr. Jag Waldrop MCV (RBC) [Entitic vol] 91.5 fL Normal 81.0-99.0 [facility] Comment on above: Performed By: #### P OCGLUC #### [facility] [address] [address] [address] Jag Waldrop MONO # 0.5 103/ul Normal 0.3-0.8 [facility] Comment on above: Performed By: #### P OCGLUC #### [facility] [address] [address] Dr. Jag Waldrop Monocytes/100 WBC (Bld) 8.4 % Normal 1.7-12.0 [facility] Comment on above: Performed By: #### P OCGLUC #### [facility] [address] [address] Dr. Jag Waldrop NEUT # 3.3 103/ul Normal 1.4-6.5 [facility] Comment on above: Performed By: #### P OCGLUC #### [facility] [address] [place] [address] Dr. Jag Waldrop Neutrophils/100 WBC (Bld) 54.1 % Normal 43.0-75.0 [facility] Comment on above: Performed By: #### P OCGLUC #### [facility] [address] [address] Dr. Jag Waldrop Platelet mean volume (Bld) [Entitic vol] 10.6 fL Normal 9.5-13.5 [facility] Comment on above: Performed By: #### P OCGLUC #### [facility] [address] [place] [address] Dr. Jag Waldrop PLT 294 103/ul Normal 150-450 [facility] Comment on above: Performed By: #### P OCGLUC #### [facility] [address] [address] [address] Jag Waldrop RBC 4.01 106/ul Critically low 4.20-5.40 [facility] Comment on above: Performed By: #### P OCGLUC #### [facility] [address] [address] [address] Jag Waldrop WBC 6.2 103/ul Normal 4.0-11.0 [facility] Comment on above: Performed By: #### P OCGLUC #### [facility] [address] [address] [address] Jag Waldrop CRPon 02-19-2022 CRP [Mass/Vol] mg/L Normal <=1.0 [facility] Comment on above: Performed By: #### E RUR #### [facility] [address] [address] [address] TSPINE WO CONon 2 CT TSPINE WO CON EXAMINATION: CT TSPI NE WO CON, CT LSPINE WO CON HISTORY: Right right-sided back pain COMPARISON: None. TECHNIQUE: CT examination of the thoracic and lumbar spines without IV contrast. Coronal and sagittal reformations were performed. Dose reduction techniques were achieved by using automated exposure control and/or adjustment of mA and/or kV according to patient size and/or use of iterative reconstruction technique. FINDINGS: Straightening of the lower thoracic curvature which may be related to positioning. Lumbar lordosis is maintained. Vertebral body heights and alignments exhibit no fracture or listhesis. Multilevel intervertebral disc space narrowing, endplate and facet arthrosis. Thoracic changes of DISH. Postoperative right hemilaminotomy changes at T12/L1 with vacuum disc and prominent posterior endplate osteophytes. Mild narrowing of the central canal. No prevertebral or paraspinal soft tissue edema or collection. The visualized lung parenchyma exhibits no abnormality. No pneumothorax or pleural effusion. Imaging below the diaphragm exhibits atherosclerosis with no gross acute intra-abdominal abnormality. IMPRESSION: No visualized acute abnormality Electronically authenticated by: ALEX AVINA Date: 2022-02-19 19:25 Normal [facility] URINE PROFILEon 2 Bilirubin Ql (U) Negative Normal NEGATIVE [facility] Comment on above: Performed By: #### P OCGLUC #### [facility] [address] [address] [address] Jag Waldrop Clarity (U) CLEAR Normal CLEAR [facility] Comment on above: Performed By: #### P OCGLUC #### [facility] [address] [place] [address] Dr. Jag Waldrop Color (U) LT. YELLOW Normal YELLOW [facility] Comment on above: Performed By: #### P OCGLUC #### [facility] [address] [address] [address] Jag SAL A micrscopic examination will be performed if indicated. Normal [facility] Comment on above: Performed By: #### P OCGLUC #### [facility] [address] [place] [address] Dr. Jag Waldrop Glucose Ql (U) Negative Normal NEGATIVE [facility] Comment on above: Performed By: #### P OCGLUC #### [facility] [address] [address] Dr. Jag Waldrop Hemoglobin Ql (U) Negative Normal NEGATIVE [facility] Comment on above: Performed By: #### P OCGLUC #### [facility] [address] [place] [address] Dr. Jag Waldrop Ketones Ql (U) Negative Normal NEGATIVE [facility] Comment on above: Performed By: #### P OCGLUC #### [facility] [address] [place] [address] Dr. Jag Waldrop LEUKOCYTES Negative Normal NEGATIVE [facility] Comment on above: Performed By: #### P OCGLUC #### [facility] [address] [place] [address] Dr. Jag Waldrop Nitrite Ql (U) Negative Normal NEGATIVE [facility] Comment on above: Performed By: #### P OCGLUC #### [facility] [address] [place] [address] Dr. Jag Waldrop pH (U) 5.5 [pH] Normal 5-9 [facility] Comment on above: Performed By: #### P OCGLUC #### [facility] [address] [place] [address] Dr. Jag Waldrop SPEC GRAVITY 1.020 Normal 1.005-<=1.025 [facility] Comment on above: Performed By: #### P OCGLUC #### [facility] [address] [place] [address] Dr. Jag Waldrop UA PROTEIN Negative Normal NEGATIVE/ TRACE [facility] Comment on above: Performed By: #### P OCGLUC #### [facility] [address] [place] [address] Dr. Jag Waldrop UR MICRO IND NOT INDICATED Normal [facility] Comment on above: Performed By: #### P OCGLUC #### [facility] [address] [place] [address] Dr. Jag Waldrop Urobilinogen Qn (U) 0.2 {Chris'U}/dL Normal 0.2 - 1. 0 [facility] Comment on above: Performed By: #### P OCGLUC #### [facility] [address] [place] [address] Dr. Jag Waldrop PROF CHEM 8 (BAS METB)on Anion gap [Moles/Vol] 10.8 mmol/L Normal [facility] Comment on above: Performed By: #### E RUR #### [facility] [address] [place] [address] Dr. Jag Waldrop Calcium [Mass/Vol] 9.0 mg/dL Normal 8.5-10.1 [facility] Comment on above: Performed By: #### E RUR #### [facility] [address] [place] [address] Dr. Jag Waldrop Chloride [Moles/Vol] 106 mmol/L Normal 98-107 [facility] Comment on above: Performed By: #### E RUR #### [facility] [address] [place] [address] Dr. Jag Waldrop CO2 [Moles/Vol] 28.1 mmol/L Normal 21.0-32.0 [facility] Comment on above: Performed By: #### E RUR #### [facility] [address] [place] [address] Dr. Jag Waldrop Creatinine [Mass/Vol] 1.06 mg/dL Critically high 0.55-1.02 [facility] Comment on above: Performed By: #### E RUR #### [facility] [address] [place] [address] Dr. Jag Waldrop EGFR-AF PORTUGUESE >60 Normal >=60 [facility] Comment on above: Performed By: #### E RUR #### [facility] [address] [address] [address] Jag Waldrop EGFR-NON AF PORTUGUESE 55 mL/min/1.73m2 Critically low >=60 [facility] Comment on above: Performed By: #### E RUR #### [facility] [address] [place] [address] Dr. Jag Waldrop Glucose [Mass/Vol] 89 mg/dL Normal 74-106 [facility] Comment on above: Performed By: #### E RUR #### [facility] [address] [place] [address] Dr. Jag Waldrop Potassium [Moles/Vol] 3.9 mmol/L Normal 3.5-5.1 [facility] Comment on above: Performed By: #### E RUR #### [facility] [address] [place] [address] Dr. Jag Waldrop Sodium [Moles/Vol] 141 mmol/L Normal 136-145 [facility] Comment on above: Performed By: #### E RUR #### [facility] [address] [place] [address] Dr. Jag Waldrop Urea nitrogen [Mass/Vol] 19.0 mg/dL Critically high 7.0-18.0 [facility] Comment on above: Performed By: #### E RUR #### [facility] [address] [place] [address] Dr. Jag Waldrop Urea nitrogen/Creatinine [Mass ratio] 17.9 mg/mg Normal [facility] Comment on above: Performed By: #### E RUR #### [facility] [address] [place] [address] Dr. Jag Waldrop SED RATE [facility] 2021 SED RATE 19 mm/hr Normal <=30 [facility] Comment on above: Performed By: #### L IPID, BMP #### [facility] [address] [place] [address] Dr. Jag Waldrop PROF CHEM 8 (BAS METB)on Anion gap [Moles/Vol] 17.3 mmol/L Normal [facility] Comment on above: Performed By: #### L IPID, BMP #### [facility] [address] [place] [address] Dr. Jag Waldrop Calcium [Mass/Vol] 9.2 mg/dL Normal 8.5-10.1 [facility] Comment on above: Performed By: #### L IPID, BMP #### [facility] [address] [place] [address] Dr. Jag Waldrop Chloride [Moles/Vol] 108 mmol/L Critically high 98-107 [facility] Comment on above: Performed By: #### L IPID, BMP #### [facility] [address] [place] [address] Dr. Jag Waldrop CO2 [Moles/Vol] 20.0 mmol/L Critically low 21.0-32.0 [facility] Comment on above: Performed By: #### L IPID, BMP #### [facility] [address] [place] [address] Dr. Jag Waldrop Creatinine [Mass/Vol] 1.40 mg/dL Critically high 0.55-1.02 [facility] Comment on above: Performed By: #### L IPID, BMP #### [facility] [address] [place] [address] Dr. Jag Waldrop EGFR-AF PORTUGUESE 48 mL/min/1.73m2 Critically low >=60 [facility] Comment on above: Performed By: #### L IPID, BMP #### [facility] [address] [place] [address] Dr. Jag Waldrop EGFR-NON AF PORTUGUESE 40 mL/min/1.73m2 Critically low >=60 [facility] Comment on above: Performed By: #### L IPID, BMP #### [facility] [address] [address] [address] Jag Waldrop Glucose [Mass/Vol] 126 mg/dL Critically high 74-106 [facility] Comment on above: Performed By: #### L IPID, BMP #### [facility] [address] [place] [address] Dr. Jag Waldrop Potassium [Moles/Vol] 5.3 mmol/L Critically high 3.5-5.1 [facility] Comment on above: Performed By: #### L IPID, BMP #### [facility] [address] [place] [address] Dr. Jag Waldrop Sodium [Moles/Vol] 140 mmol/L Normal 136-145 [facility] Comment on above: Performed By: #### L IPID, BMP #### [facility] [address] [place] [address] Dr. Jag Waldrop Urea nitrogen [Mass/Vol] 31.0 mg/dL Critically high 7.0-18.0 [facility] Comment on above: Performed By: #### L IPID, BMP #### [facility] [address] [place] [address] Dr. Jag Waldrop Urea nitrogen/Creatinine [Mass ratio] 22.1 mg/mg Normal [facility] Comment on above: Performed By: #### L IPID, BMP #### [facility] [address] [place] [address] Dr. Jag Waldrop CBC AUTO DIFFon 01-23-2022 BASO # 0.1 103/ul Normal 0.0-0.1 [facility] Comment on above: Performed By: #### C BC #### [facility] [address] [place] [address] Dr. Jag Waldrop Basophils/100 WBC (Bld) 1.0 % Normal 0.2-2.0 [facility] Comment on above: Performed By: #### C BC #### [facility] [address] [place] [address] Dr. Jag Waldrop EO # 0.2 103/ul Normal 0.0-0.7 [facility] Comment on above: Performed By: #### C BC #### [facility] [address] [place] [address] Dr. Jag Waldrop Eosinophils/100 WBC (Bld) 3.3 % Normal 0.9-7.0 [facility] Comment on above: Performed By: #### C BC #### [facility] [address] [place] [address] Dr. Jag Waldrop Erythrocyte distribution width (RBC) [Ratio] 13.2 % Normal 11.0-15.0 [facility] Comment on above: Performed By: #### C BC #### [facility] [address] [place] [address] Dr. Jag Waldrop Hematocrit (Bld) [Volume fraction] 35.6 % Critically low 36.0-48.0 [facility] Comment on above: Performed By: #### C BC #### [facility] [address] [place] [address] Dr. Jag Waldrop Hemoglobin (Bld) [Mass/Vol] 10.6 g/dL Critically low 12.0-16.0 [facility] Comment on above: Performed By: #### C BC #### [facility] [address] [place] [address] Dr. Jag Waldrop IG # 0.01 10e3/ul Normal 0.00-0.03 [facility] Comment on above: Performed By: #### C BC #### [facility] [address] [place] [address] Dr. Jag Waldrop IG % 0.2 % Normal 0.0-0.5 [facility] Comment on above: Performed By: #### C BC #### [facility] [address] [place] [address] Dr. Jag Waldrop LYMPH # 1.7 103/ul Normal 1.2-3.8 [facility] Comment on above: Performed By: #### C BC #### [facility] [address] [place] [address] Dr. Jag Waldrop Lymphocytes/100 WBC (Bld) 35.4 % Normal 20.5-60.0 [facility] Comment on above: Performed By: #### C BC #### [facility] [address] [address] Dr. Jag Waldrop MANUAL DIFF REQ NO Normal [facility] Comment on above: Performed By: #### C BC #### [facility] [address] [address] Dr. Jag Waldrop MCH (RBC) [Entitic mass] 29.0 pg Normal 26.7-34.0 [facility] Comment on above: Performed By: #### C BC #### [facility] [address] [place] [address] Dr. Jag Waldrop MCHC (RBC) [Mass/Vol] 29.8 g/dL Critically low 29.9-35.2 [facility] Comment on above: Performed By: #### C BC #### [facility] [address] [place] [address] Dr. Jag Waldrop MCV (RBC) [Entitic vol] 97.3 fL Normal 81.0-99.0 [facility] Comment on above: Performed By: #### C BC #### [facility] [address] [place] [address] Dr. Jag Waldrop MONO # 0.3 103/ul Normal 0.3-0.8 [facility] Comment on above: Performed By: #### C BC #### [facility] [address] [place] [address] Dr. Jag Waldrop Monocytes/100 WBC (Bld) 6.8 % Normal 1.7-12.0 [facility] Comment on above: Performed By: #### C BC #### [facility] [address] [place] [address] Dr. Jag Waldrop NEUT # 2.6 103/ul Normal 1.4-6.5 [facility] Comment on above: Performed By: #### C BC #### [facility] [address] [place] [address] Dr. Jag Waldrop Neutrophils/100 WBC (Bld) 53.3 % Normal 43.0-75.0 [facility] Comment on above: Performed By: #### C BC #### [facility] [address] [address] [address] Jag Waldrop Platelet mean volume (Bld) [Entitic vol] 11.0 fL Normal 9.5-13.5 [facility] Comment on above: Performed By: #### C BC #### [facility] [address] [address] [address] Jag Waldrop PLT 230 103/ul Normal 150-450 [facility] Comment on above: Performed By: #### C BC #### [facility] [address] [address] [address] Jag Waldrop RBC 3.66 106/ul Critically low 4.20-5.40 [facility] Comment on above: Performed By: #### C BC #### [facility] [address] [address] [address] Jag Waldrop WBC 4.8 103/ul Normal 4.0-11.0 [facility] Comment on above: Performed By: #### C BC #### [facility] [address] [address] [address] Jag Waldrop FERRITINon 01-23-2022 Ferritin [Mass/Vol] 35.0 ng/mL Normal 8.0-252.0 [facility] Comment on above: Performed By: #### L IPID, BMP #### [facility] [address] [place] [address] Dr. Jag Waldrop IRONon 01-23-2022 Iron [Mass/Vol] 71.0 ug/dL Normal 50.0-170.0 [facility] Comment on above: Performed By: #### L IPID, BMP #### [facility] [address] [place] [address] Dr. Jag Waldrop LIPID PROFILEon 01-23-2022 CHOL-HDL RATIO NORM SEE BELOW Normal [facility] Comment on above: Result Comment: 3.3 - 4.4 LOW RISK 4.4 - 7.1 AVERAGE RISK 7.1 - 11.0 MODERATE RISK >11.0 HIGH RISK Performed By: #### L IPID, BMP #### [facility] [address] [address] [address] Jag Waldrop Cholesterol [Mass/Vol] 133 mg/dL Normal <=200 [facility] Comment on above: Performed By: #### L IPID, BMP #### [facility] [address] [address] [address] Jag Waldrop Cholesterol in HDL [Mass/Vol] 41 mg/dL Normal 40-60 [facility] Comment on above: Performed By: #### L IPID, BMP #### [facility] [address] [address] [address] Jag Waldrop Cholesterol in LDL [Mass/Vol] 70.8 mg/dL Normal [facility] Comment on above: Performed By: #### L IPID, BMP #### [facility] [address] [address] [address] Jag Waldrop Cholesterol.total/C holesterol in HDL [Mass ratio] 3.2 {ratio} Normal [facility] Comment on above: Performed By: #### L IPID, BMP #### [facility] [address] [address] [address] Jag Waldrop HDL NORMAL > or = 60 mg/dl - LO W CARDIOVASCULAR RISK <40 mg/dl - HIGH CARDIOVASCULAR RISK Normal [facility] Comment on above: Performed By: #### L IPID, BMP #### [facility] [address] [address] [address] Jag Waldrop LDL CALC NORMAL SEE BELOW Normal [facility] Comment on above: Result Comment: <100 mg/dl OPTIMAL 100 - 129 mg/dl NEAR OR ABOVE OPTIMAL 130 - 159 mg/dl BORDERLINE HIGH 160 - 189 mg/dl HIGH >190 mg/dl VERY HIGH Performed By: #### L IPID, BMP #### [facility] [address] [address] [address] Jag Waldrop Triglyceride [Mass/Vol] 106 mg/dL Normal <=150 [facility] Comment on above: Performed By: #### L IPID, BMP #### [facility] [address] [address] [address] Jag Waldrop VLDL CALC 21.2 mg/dL Normal [facility] Comment on above: Performed By: #### L IPID, BMP #### [facility] [address] [address] Dr. Jag Waldrop PROF CHEM 8 (BAS METB)on Anion gap [Moles/Vol] 18.2 mmol/L Normal [facility] Comment on above: Performed By: #### L IPID, BMP #### [facility] [address] [address] Dr. Jag Waldrop Calcium [Mass/Vol] 9.3 mg/dL Normal 8.5-10.1 [facility] Comment on above: Performed By: #### L IPID, BMP #### [facility] [address] [address] Dr. Jag Waldrop Chloride [Moles/Vol] 111 mmol/L Critically high 98-107 [facility] Comment on above: Performed By: #### L IPID, BMP #### [facility] [address] [address] Dr. Jag Waldrop CO2 [Moles/Vol] 19.9 mmol/L Critically low 21.0-32.0 [facility] Comment on above: Performed By: #### L IPID, BMP #### [facility] [address] [place] [address] Dr. Jag Waldrop Creatinine [Mass/Vol] 1.27 mg/dL Critically high 0.55-1.02 [facility] Comment on above: Performed By: #### L IPID, BMP #### [facility] [address] [place] [address] Dr. Jag Waldrop EGFR-AF PORTUGUESE 54 mL/min/1.73m2 Critically low >=60 [facility] Comment on above: Performed By: #### L IPID, BMP #### [facility] [address] [place] [address] Dr. Jag Waldrop EGFR-NON AF [place]UGUES[place] 44 mL/min/1.73m2 Critically low >=60 [facility] Comment on above: Performed By: #### L IPID, BMP #### [facility] [address] [address] [address] Jag Waldrop Glucose [Mass/Vol] 129 mg/dL Critically high 74-106 [facility] Comment on above: Performed By: #### L IPID, BMP #### [facility] [address] [address] Dr. Jag Waldrop Potassium [Moles/Vol] 6.1 mmol/L Critically high 3.5-5.1 [facility] Comment on above: Performed By: #### L IPID, BMP #### [facility] [address] [address] [address] Jag Waldrop Sodium [Moles/Vol] 142 mmol/L Normal 136-145 [facility] Comment on above: Performed By: #### L IPID, BMP #### [facility] [address] [place] [address] Dr. Jag Waldrop Urea nitrogen [Mass/Vol] 35.0 mg/dL Critically high 7.0-18.0 [facility] Comment on above: Performed By: #### L IPID, BMP #### [facility] [address] [place] [address] Dr. Jag Waldrop Urea nitrogen/Creatinine [Mass ratio] 27.6 mg/mg Normal [facility] Comment on above: Performed By: #### L IPID, BMP #### [facility] [address] [place] [address] Dr. Jag Waldrop VITAMIN B12on 01-23-2022 Cobalamin (Vitamin B12) [Mass/Vol] 267.0 pg/mL Normal 193.0-986.0 [facility] Comment on above: Performed By: #### L IPID, BMP #### [facility] [address] [place] [address] Dr. Jag Waldrop XR CSPINE 2_3 VIEWSon 2021 XR CSPINE 2_3 VIEWS EXAMINATION: XR CSPI NE 2_3 VIEWS HISTORY: Open wound of neck ; chronic neck pain radiating into left arm COMPARISON: XR cervical spine 06/16/2020 FINDINGS: BONES: Posterior mechanical stabilization L2-L3-4V bilateral pedicle screws and rods; no appreciable hardware fracture or loosening. Reversal of the normal lordotic curvature. Multilevel mild degenerative facet arthropathy. DISC SPACES: Mild narrowing C3-C4, C4-C5, C5-C6. PARASPINOUS: Negative. No paraspinous abnormality is seen. OTHER: Negative. IMPRESSION: 1. Stable surgical changes without evidence of hardware failure or change in alignment. 2. Grossly stable multilevel mild degenerative changes. Electronically authenticated by: KATHY HENDRICKS Date: 2022-01-12 09:39 Normal [facility] BNPon 12-21-2021 Natriuretic peptide B (Bld) [Mass/Vol] 283.0 pg/mL Normal <=900.0 [facility] Comment on above: Performed By: #### P OCGLUC #### [facility] [address] [address] Dr. Jag Waldrop CBC AUTO DIFFon 12-21-2021 BASO # 0.1 103/ul Normal 0.0-0.1 [facility] Comment on above: Performed By: #### L IPID, BMP #### [facility] [address] [address] Dr. Jag Waldrop Basophils/100 WBC (Bld) 0.8 % Normal 0.2-2.0 [facility] Comment on above: Performed By: #### L IPID, BMP #### [facility] [address] [place] [address] Dr. Jag Waldrop EO # 0.3 103/ul Normal 0.0-0.7 [facility] Comment on above: Performed By: #### L IPID, BMP #### [facility] [address] [address] Dr. Jag Waldrop Eosinophils/100 WBC (Bld) 3.8 % Normal 0.9-7.0 [facility] Comment on above: Performed By: #### L IPID, BMP #### [facility] [address] [place] [address] Dr. Jag Waldrop Erythrocyte distribution width (RBC) [Ratio] 13.2 % Normal 11.0-15.0 [facility] Comment on above: Performed By: #### L IPID, BMP #### [facility] [address] [place] [address] Dr. Jag Waldrop Hematocrit (Bld) [Volume fraction] 34.8 % Critically low 36.0-48.0 [facility] Comment on above: Performed By: #### L IPID, BMP #### [facility] [address] [place] [address] Dr. Jag Waldrop Hemoglobin (Bld) [Mass/Vol] 10.6 g/dL Critically low 12.0-16.0 [facility] Comment on above: Performed By: #### L IPID, BMP #### [facility] [address] [address] Dr. Jag Waldrop IG # 0.02 10e3/ul Normal 0.00-0.03 [facility] Comment on above: Performed By: #### L IPID, BMP #### [facility] [address] [address] Dr. Jag Waldrop IG % 0.3 % Normal 0.0-0.5 [facility] Comment on above: Performed By: #### L IPID, BMP #### [facility] [address] [address] Dr. Jag Waldrop LYMPH # 1.7 103/ul Normal 1.2-3.8 [facility] Comment on above: Performed By: #### L IPID, BMP #### [facility] [address] [place] [address] Dr. Jag Waldrop Lymphocytes/100 WBC (Bld) 23.8 % Normal 20.5-60.0 [facility] Comment on above: Performed By: #### L IPID, BMP #### [facility] [address] [address] Dr. Jag Waldrop MANUAL DIFF REQ NO Normal [facility] Comment on above: Performed By: #### L IPID, BMP #### [facility] [address] [address] Dr. Jag Waldrop MCH (RBC) [Entitic mass] 29.1 pg Normal 26.7-34.0 [facility] Comment on above: Performed By: #### L IPID, BMP #### [facility] [address] [address] Dr. Jag Waldrop MCHC (RBC) [Mass/Vol] 30.5 g/dL Normal 29.9-35.2 [facility] Comment on above: Performed By: #### L IPID, BMP #### [facility] [address] [address] Dr. Jag Waldrop MCV (RBC) [Entitic vol] 95.6 fL Normal 81.0-99.0 [facility] Comment on above: Performed By: #### L IPID, BMP #### [facility] [address] [place] [address] Dr. Jag Waldrop MONO # 0.7 103/ul Normal 0.3-0.8 [facility] Comment on above: Performed By: #### L IPID, BMP #### [facility] [address] [place] [address] Dr. Jag Waldrop Monocytes/100 WBC (Bld) 9.3 % Normal 1.7-12.0 [facility] Comment on above: Performed By: #### L IPID, BMP #### [facility] [address] [place] [address] Dr. Jag Waldrop NEUT # 4.4 103/ul Normal 1.4-6.5 [facility] Comment on above: Performed By: #### L IPID, BMP #### [facility] [address] [place] [address] Dr. Jag Waldrop Neutrophils/100 WBC (Bld) 62.0 % Normal 43.0-75.0 [facility] Comment on above: Performed By: #### L IPID, BMP #### [facility] [address] [place] [address] Dr. Jag Waldrop Platelet mean volume (Bld) [Entitic vol] 11.5 fL Normal 9.5-13.5 [facility] Comment on above: Performed By: #### L IPID, BMP #### [facility] [address] [place] [address] Dr. Jag Waldrop PLT 235 103/ul Normal 150-450 [facility] Comment on above: Performed By: #### L IPID, BMP #### [facility] [address] [address] [address] Jag Waldrop RBC 3.64 106/ul Critically low 4.20-5.40 [facility] Comment on above: Performed By: #### L IPID, BMP #### [facility] [address] [address] [address] Jag Waldrop WBC 7.1 103/ul Normal 4.0-11.0 [facility] Comment on above: Performed By: #### L IPID, BMP #### [facility] [address] [address] [address] Jag Waldrop CRPon 12-21-2021 CRP 1.1 mg/dL Critically high <=1.0 [facility] Comment on above: Performed By: #### B MP #### [facility] [address] [address] [address] Jag Waldrop [facility]on SARS-CoV-2 (COVID-19) RNA PRINCE+probe Ql (Unsp spec) Not detected Normal NOT DETECTED [facility] Comment on above: Result Comment: This test is not yet approved or cleared by the [place] FDA. When there are no FDA-approved or cleared tests available, and other criteria are met, FDA can make tests available under an emergency access mechanism called an Emergency Use Authorization (EUA). The EUA for this test is supported by the Fulfillment Specialist of Health and Human Service's (HHS's) declaration that circumstances exist to justify the emergency use of in vitro diagnostics for the detection and/or diagnosis of the virus that causes COVID-19. This EUA will remain in effect (meaning this test can be used) for the duration of the COVID-19 declaration justifying emergency of IVDs, unless it is terminated or revoked by FDA (after which the test may no longer be used). When diagnostic testing is negative, the possibility of a false negative should be considered in the context of a patient's recent exposures and the presence of clinical signs and symptoms consistent with SARS-CoV-2. Performed By: #### L IPID, BMP #### [facility] [address] [address] [address] Jag Waldrop PROF CHEM 8 (BAS METB)on Anion gap [Moles/Vol] 13.3 mmol/L Normal [facility] Comment on above: Performed By: #### B MP #### [facility] [address] [address] [address] Jag Waldrop Calcium [Mass/Vol] 8.7 mg/dL Normal 8.5-10.1 [facility] Comment on above: Performed By: #### B MP #### [facility] [address] [address] [address] Jag Waldrop Chloride [Moles/Vol] 107 mmol/L Normal 98-107 [facility] Comment on above: Performed By: #### B MP #### [facility] [address] [address] [address] Jag Waldrop CO2 [Moles/Vol] 23.2 mmol/L Normal 21.0-32.0 [facility] Comment on above: Performed By: #### B MP #### [facility] [address] [address] [address] Jag Waldrop Creatinine [Mass/Vol] 1.55 mg/dL Critically high 0.55-1.02 [facility] Comment on above: Performed By: #### B MP #### [facility] [address] [address] [address] Jag Waldrop EGFR-AF PORTUGUESE 43 mL/min/1.73m2 Critically low >=60 [facility] Comment on above: Performed By: #### B MP #### [facility] [address] [address] [address] Jag Waldrop EGFR-NON AF [place]UGUESE 35 mL/min/1.73m2 Critically low >=60 [facility] Comment on above: Performed By: #### B MP #### [facility] [address] [address] [address] Jag Waldrop Glucose [Mass/Vol] 123 mg/dL Critically high 74-106 [facility] Comment on above: Performed By: #### B MP #### [facility] [address] [address] [address] Jag Waldrop Potassium [Moles/Vol] 4.5 mmol/L Normal 3.5-5.1 [facility] Comment on above: Performed By: #### B MP #### [facility] [address] [address] [address] Jag Waldrop Sodium [Moles/Vol] 139 mmol/L Normal 136-145 [facility] Comment on above: Performed By: #### B MP #### [facility] [address] [address] [address] Jag Waldrop Urea nitrogen [Mass/Vol] 36.0 mg/dL Critically high 7.0-18.0 [facility] Comment on above: Performed By: #### B MP #### [facility] [address] [address] [address] Jag Waldrop Urea nitrogen/Creatinine [Mass ratio] 23.2 mg/mg Normal [facility] Comment on above: Performed By: #### B MP #### [facility] [address] [address] [address] Jag Waldrop SED RATE [facility] 2021 SED RATE 26 mm/hr Normal <=30 [facility] Comment on above: Performed By: #### S EDR #### [facility] [address] [address] [address] Jag Waldrop XR CHEST 2 Von 12-21-2021 XR CHEST 2 V EXAMINATION: XR CHES T 2 V HISTORY: Dyspnea COMPARISON: 04/23/2021 TECHNIQUE: PA and lateral FINDINGS: LUNGS: No significant pulmonary parenchymal abnormalities. VASCULATURE: No increased pulmonary vasculature. PLEURA: No pneumothorax, effusion, or pleural thickening. CARDIAC: Moderate stable cardiomegaly. MEDIASTINUM: No visible mass or adenopathy. BONES: No fracture or visible bone lesion. OTHER: Negative. IMPRESSION: Stable cardiomegaly, clear lungs Electronically authenticated by: ALEX ALLEN Date: 2021-12-21 18:35 Normal [facility] OVA AND PARASITE EXAMINATION on 12-06-2021 Ova + Parasite Exam Final report Normal [facility] Comment on above: Result Comment: Thes e results were obtained using wet preparation(s) and trichrome stained smear. This test does not include testing for Cryptosporidium parvum, Cyclospora, or Microsporidia. Performed By: #### L IPID, BMP #### [facility] [address] [address] [address] Jag Waldrop Result 1 Comment Normal [facility] Comment on above: Result Comment: No o va, cysts, or parasites seen. . One negative specimen does not rule out the possibility of a parasitic infection. Performed By: #### L IPID, BMP #### [facility] [address] [address] [address] Jag Waldrop STOOL CULTUREon 12-05-2021 Campylobacter Culture Final report [facility] Comment on above: Performed By: #### C XSTOOL #### [facility] [address] [place] [address] Dr. Jag Waldrop E coli Shiga Toxin EIA Negative Normal Negative [facility] Comment on above: Performed By: #### C XSTOOL #### [facility] [address] [address] [address] Jag Waldrop Result 1 Comment Normal [facility] Comment on above: Result Comment: No S almonella or Shigella recovered. Performed By: #### C XSTOOL #### [facility] [address] [place] [address] Dr. Jag Waldrop Result Comment: No C ampylobacter species isolated. Salmonella/Shigella Screen Final report Normal [facility] Comment on above: Performed By: #### C XSTOOL #### [facility] [address] [address] [address] Jag Waldrop GI PANEL (PCR)on 11-30-2021 Adenovirus F 40/41 Not detected Normal NOT DETECTED [facility] Comment on above: Performed By: #### E RUR #### [facility] [address] [place] [address] Dr. Jag Waldrop Astrovirus Not detected Normal NOT DETECTED [facility] Comment on above: Performed By: #### E RUR #### [facility] [address] [place] [address] Dr. Jag Waldrop C. Diff toxin A/B Detected Critically abnormal NOT DETECTED [facility] Comment on above: Performed By: #### E RUR #### [facility] [address] [place] [address] Dr. Jag Waldrop Campylobacter Not detected Normal NOT DETECTED [facility] Comment on above: Performed By: #### E RUR #### [facility] [address] [address] Dr. Jag Waldrop Cryptosporidium Not detected Normal NOT DETECTED [facility] Comment on above: Performed By: #### E RUR #### [facility] [address] [address] Dr. Jag Waldrop Cyclos. Cayetanensis Not detected Normal NOT DETECTED [facility] Comment on above: Performed By: #### E RUR #### [facility] [address] [place] [address] Dr. Jag Waldrop E. Coli O157 Not Applicable Normal Not Applicable [facility] Comment on above: Performed By: #### E RUR #### [facility] [address] [place] [address] Dr. Jag Waldrop E. histolytica Not detected Normal NOT DETECTED [facility] Comment on above: Performed By: #### E RUR #### [facility] [address] [place] [address] Dr. Jag Waldrop EAEC Not detected Normal NOT DETECTED [facility] Comment on above: Performed By: #### E RUR #### [facility] [address] [place] [address] Dr. Jag Waldrop EIEC Not detected Normal NOT DETECTED [facility] Comment on above: Performed By: #### E RUR #### [facility] [address] [place] [address] Dr. Jag Waldrop EPEC Not detected Normal NOT DETECTED [facility] Comment on above: Performed By: #### E RUR #### [facility] [address] [place] [address] Dr. Jag Waldrop ETEC Not detected Normal NOT DETECTED [facility] Comment on above: Performed By: #### E RUR #### [facility] [address] [address] [address] Jag Bajwa Not detected Normal NOT DETECTED [facility] Comment on above: Performed By: #### E RUR #### [facility] [address] [address] [address] Jag TANG CONTROLS PASSED Normal [facility] Comment on above: Performed By: #### E RUR #### [facility] [address] [address] [address] Jag TEJEDA HEADER GI PANEL BACTERIA Normal [facility] Comment on above: Performed By: #### E RUR #### [facility] [address] [place] [address] Dr. Jag SANCHEZ ECOLI GI PANEL DIARRHEAGEN IC E.COLI / SHIGELLA Normal [facility] Comment on above: Performed By: #### E RUR #### [facility] [address] [place] [address] Dr. Jag SANCHEZ INFO SEE BELOW Normal [facility] Comment on above: Result Comment: EAEC - Enteroaggregative E. Coli EPEC- Enteropathogenic E. Coli ETEC- Enterotoxigenic E. Coli lt/st STEC- Shigella-like toxin-producing E. Coli stx1/stx2 EIEC- Shigella/Enteroinvasive E. Coli Performed By: #### E RUR #### [facility] [address] [place] [address] Dr. Jag SANCHEZ PARASITES GI PANEL PARASITES Normal [facility] Comment on above: Performed By: #### E RUR #### [facility] [address] [place] [address] Dr. Jag SANCHEZ VIRUS GI PANEL VIRUSES Normal [facility] Comment on above: Performed By: #### E RUR #### [facility] [address] [place] [address] Dr. Jag Waldrop Norovirus GI/GII Not detected Normal NOT DETECTED [facility] Comment on above: Performed By: #### E RUR #### [facility] [address] [place] [address] Dr. Jag Waldrop P. Shigelloides Not detected Normal NOT DETECTED [facility] Comment on above: Performed By: #### E RUR #### [facility] [address] [place] [address] Dr. Jag Waldrop Rotavirus A Not detected Normal NOT DETECTED [facility] Comment on above: Performed By: #### E RUR #### [facility] [address] [address] Dr. Jag Waldrop Salmonella Not detected Normal NOT DETECTED [facility] Comment on above: Performed By: #### E RUR #### [facility] [address] [place] [address] Dr. Jag Waldrop Sapovirus Not detected Normal NOT DETECTED [facility] Comment on above: Performed By: #### E RUR #### [facility] [address] [place] [address] Dr. Jag Waldrop STEC Not detected Normal NOT DETECTED [facility] Comment on above: Performed By: #### E RUR #### [facility] [address] [place] [address] Dr. Jag Waldrop Vibrio Not detected Normal NOT DETECTED [facility] Comment on above: Performed By: #### E RUR #### [facility] [address] [place] [address] Dr. Jag Waldrop Vibrio Cholera Not detected Normal NOT DETECTED [facility] Comment on above: Performed By: #### E RUR #### [facility] [address] [place] [address] Dr. Jag Waldrop Y. Enterocolitica Not detected Normal NOT DETECTED [facility] Comment on above: Performed By: #### E RUR #### [facility] [address] [place] [address] Dr. Jag Waldrop OCC BLD IMMUNO SCREENon 11-14 OCCULT BLOOD Negative Normal NEGATIVE [facility] Comment on above: Performed By: #### L IPID, BMP #### [facility] [address] [address] [address] Jag Waldrop PROF CHEM 8 (BAS METB)on Anion gap [Moles/Vol] 15.5 mmol/L Normal [facility] Comment on above: Performed By: #### P OCGLUC #### [facility] [address] [address] [address] Jag Waldrop Calcium [Mass/Vol] 9.1 mg/dL Normal 8.5-10.1 [facility] Comment on above: Performed By: #### P OCGLUC #### [facility] [address] [address] [address] Jag Waldrop Chloride [Moles/Vol] 106 mmol/L Normal 98-107 [facility] Comment on above: Performed By: #### P OCGLUC #### [facility] [address] [address] [address] Jag Waldrop CO2 [Moles/Vol] 25.4 mmol/L Normal 21.0-32.0 [facility] Comment on above: Performed By: #### P OCGLUC #### [facility] [address] [address] [address] Jag Waldrop Creatinine [Mass/Vol] 1.18 mg/dL Critically high 0.55-1.02 [facility] Comment on above: Performed By: #### P OCGLUC #### [facility] [address] [address] [address] Jag Waldrop EGFR-AF [place]UGUESE 59 mL/min/1.73m2 Critically low >=60 [facility] Comment on above: Performed By: #### P OCGLUC #### [facility] [address] [address] [address] Jag Waldrop EGFR-NON AF [place]UGUES[place] 48 mL/min/1.73m2 Critically low >=60 [facility] Comment on above: Performed By: #### P OCGLUC #### [facility] [address] [address] [address] Jag Waldrop Glucose [Mass/Vol] 141 mg/dL Critically high 74-106 [facility] Comment on above: Performed By: #### P OCGLUC #### [facility] [address] [address] [address] Jag Waldrop Potassium [Moles/Vol] 3.9 mmol/L Normal 3.5-5.1 [facility] Comment on above: Performed By: #### P OCGLUC #### [facility] [address] [address] [address] Jag Waldrop Sodium [Moles/Vol] 143 mmol/L Normal 136-145 [facility] Comment on above: Performed By: #### P OCGLUC #### [facility] [address] [address] [address] Jag Waldrop Urea nitrogen [Mass/Vol] 22.0 mg/dL Critically high 7.0-18.0 [facility] Comment on above: Performed By: #### P OCGLUC #### [facility] [address] [address] [address] Jag Waldrop Urea nitrogen/Creatinine [Mass ratio] 18.6 mg/mg Normal [facility] Comment on above: Performed By: #### P OCGLUC #### [facility] [address] [place] [address] Dr. Jag Waldrop XR KUB 1 VIEWon 10-29-2021 XR KUB 1 VIEW EXAMINATION: XR KUB 1 VIEW HISTORY: Abdominal pain COMPARISON: No relevant comparison available. FINDINGS: KIDNEY/URETER - RIGHT: No visible renal or ureteral calcifications. KIDNEY/URETER - LEFT: No visible renal or ureteral calcifications. PELVIS: No visible ureteral calcifications. Any visible calcifications favor phleboliths. BOWEL: No abnormal dilation or deviation. BONES: Mild degenerative changes of the spine OTHER: Suture lines left mid abdomen. No abnormal gaseous collections. IMPRESSION: No acute abnormality Electronically authenticated by: ALEX ALLEN Date: 2021-10-29 09:01 Normal [facility] CULTURE URINEon 10-28-2021 CULTURE URINE Culture Observations : LIGHT GROWTH OF MIXED GENITAL SANDEE. NO POTENTIAL PATHOGENS SEEN. Normal [facility] Comment on above: Performed By: #### E RUR #### [facility] [address] [address] [address] Jag Waldrop GLYCOHEMOGLOBIN A1Con 2021 ADA RECOMMENDATION SEE BELOW Normal [facility] Comment on above: Result Comment: ADA RECOMMENDED LIMIT 4.0 - 6.0 ADA THERAPEUTIC TARGET < 7.0 ACTION SUGGESTED > 7.0 Performed By: #### E RUR #### [facility] [address] [address] [address] Jag Waldrop Glucose [Mass/Vol] 157 mg/dL Normal [facility] Comment on above: Performed By: #### E RUR #### [facility] [address] [address] [address] Jag Waldrop HbA1c (Bld) [Mass fraction] 7.1 % Critically high 4.5-6.2 [facility] Comment on above: Performed By: #### E RUR #### [facility] [address] [address] Dr. Jag Waldrop LIPID PROFILEon 10-28-2021 CHOL-HDL RATIO NORM SEE BELOW Normal [facility] Comment on above: Result Comment: 3.3 - 4.4 LOW RISK 4.4 - 7.1 AVERAGE RISK 7.1 - 11.0 MODERATE RISK >11.0 HIGH RISK Performed By: #### P OCGLUC #### [facility] [address] [place] [address] Dr. Jag Waldrop Cholesterol [Mass/Vol] 150 mg/dL Normal <=200 [facility] Comment on above: Performed By: #### P OCGLUC #### [facility] [address] [address] [address] Jag Waldrop Cholesterol in HDL [Mass/Vol] 39 mg/dL Critically low 40-60 [facility] Comment on above: Performed By: #### P OCGLUC #### [facility] [address] [address] [address] Jag Waldrop Cholesterol in LDL [Mass/Vol] 82.6 mg/dL Normal [facility] Comment on above: Performed By: #### P OCGLUC #### [facility] [address] [address] Dr. Jag Waldrop Cholesterol.total/C holesterol in HDL [Mass ratio] 3.8 {ratio} Normal [facility] Comment on above: Performed By: #### P OCGLUC #### [facility] [address] [address] [address] Jag Waldrop HDL NORMAL > or = 60 mg/dl - LO W CARDIOVASCULAR RISK <40 mg/dl - HIGH CARDIOVASCULAR RISK Normal [facility] Comment on above: Performed By: #### P OCGLUC #### [facility] [address] [address] [address] Jag Waldrop LDL CALC NORMAL SEE BELOW Normal [facility] Comment on above: Result Comment: <100 mg/dl OPTIMAL 100 - 129 mg/dl NEAR OR ABOVE OPTIMAL 130 - 159 mg/dl BORDERLINE HIGH 160 - 189 mg/dl HIGH >190 mg/dl VERY HIGH Performed By: #### P OCGLUC #### [facility] [address] [address] [address] Jga Waldrop Triglyceride [Mass/Vol] 142 mg/dL Normal <=150 [facility] Comment on above: Performed By: #### P OCGLUC #### [facility] [address] [address] [address] Jag Waldrop VLDL CALC 28.4 mg/dL Normal [facility] Comment on above: Performed By: #### P OCGLUC #### [facility] [address] [address] [address] Jag Waldrop PROF CHEM 8 (BAS METB)on Anion gap [Moles/Vol] 16.0 mmol/L Normal [facility] Comment on above: Performed By: #### P OCGLUC #### [facility] [address] [address] [address] Jag Waldrop Calcium [Mass/Vol] 8.7 mg/dL Normal 8.5-10.1 [facility] Comment on above: Performed By: #### P OCGLUC #### [facility] [address] [address] [address] Jag Waldrop Chloride [Moles/Vol] 108 mmol/L Critically high 98-107 [facility] Comment on above: Performed By: #### P OCGLUC #### [facility] [address] [address] [address] Jag Waldrop CO2 [Moles/Vol] 22.1 mmol/L Normal 21.0-32.0 [facility] Comment on above: Performed By: #### P OCGLUC #### [facility] [address] [address] [address] Jag Waldrop Creatinine [Mass/Vol] 1.72 mg/dL Critically high 0.55-1.02 [facility] Comment on above: Performed By: #### P OCGLUC #### [facility] [address] [address] [address] aJg Waldrop EGFR-AF PORTUGUESE 38 mL/min/1.73m2 Critically low >=60 [facility] Comment on above: Performed By: #### P OCGLUC #### [facility] [address] [address] [address] Jag Waldrop EGFR-NON AF [place] 31 mL/min/1.73m2 Critically low >=60 [facility] Comment on above: Performed By: #### P OCGLUC #### [facility] [address] [address] [address] Jag Waldrop Glucose [Mass/Vol] 144 mg/dL Critically high 74-106 [facility] Comment on above: Performed By: #### P OCGLUC #### [facility] [address] [address] [address] Jag Waldrop Potassium [Moles/Vol] 5.1 mmol/L Normal 3.5-5.1 [facility] Comment on above: Performed By: #### P OCGLUC #### [facility] [address] [address] [address] Jag Waldrop Sodium [Moles/Vol] 141 mmol/L Normal 136-145 [facility] Comment on above: Performed By: #### P OCGLUC #### [facility] [address] [address] [address] Jag Waldrop Urea nitrogen [Mass/Vol] 41.0 mg/dL Critically high 7.0-18.0 [facility] Comment on above: Performed By: #### P OCGLUC #### [facility] [address] [place] [address] Dr. Jag Waldrop Urea nitrogen/Creatinine [Mass ratio] 23.8 mg/mg Normal [facility] Comment on above: Performed By: #### P OCGLUC #### [facility] [address] [place] [address] Dr. Jag Waldrop UA (CLEAN/CATCH) ORDER PROCESSOR/MICRO I F IND.on 10-28-2021 Bilirubin Ql (U) Negative Normal NEGATIVE [facility] Comment on above: Performed By: #### L IPID, BMP #### [facility] [address] [address] Dr. Jag Waldrop Clarity (U) SL CLOUDY Abnormal CLEAR [facility] Comment on above: Performed By: #### L IPID, BMP #### [facility] [address] [place] [address] Dr. Jag Waldrop Color (U) LT. YELLOW Normal YELLOW [facility] Comment on above: Performed By: #### L IPID, BMP #### [facility] [address] [place] [address] Dr. Jag Waldrop Glucose Ql (U) Negative Normal NEGATIVE [facility] Comment on above: Performed By: #### L IPID, BMP #### [facility] [address] [place] [address] Dr. Jag Waldrop Hemoglobin Ql (U) TRACE-INTACT Abnormal NEGATIVE [facility] Comment on above: Performed By: #### L IPID, BMP #### [facility] [address] [place] [address] Dr. Jag Waldrop Ketones Ql (U) Negative Normal NEGATIVE [facility] Comment on above: Performed By: #### L IPID, BMP #### [facility] [address] [place] [address] Dr. Jag Waldrop LEUKOCYTES SMALL Abnormal NEGATIVE [facility] Comment on above: Performed By: #### L IPID, BMP #### [facility] [address] [place] [address] Dr. Jag Waldrop Nitrite Ql (U) Negative Normal NEGATIVE [facility] Comment on above: Performed By: #### L IPID, BMP #### [facility] [address] [place] [address] Dr. Jag Waldrop pH (U) 5.5 [pH] Normal 5-9 [facility] Comment on above: Performed By: #### L IPID, BMP #### [facility] [address] [place] [address] Dr. Jag Waldrop SPEC GRAVITY 1.020 Normal 1.005-<=1.025 [facility] Comment on above: Performed By: #### L IPID, BMP #### [facility] [address] [place] [address] Dr. Jag Waldrop UA PROTEIN Negative Normal NEGATIVE/ TRACE [facility] Comment on above: Performed By: #### L IPID, BMP #### [facility] [address] [place] [address] Dr. Jag Waldrop UR MICRO IND INDICATED Normal [facility] Comment on above: Performed By: #### L IPID, BMP #### [facility] [address] [place] [address] Dr. Jag Waldrop Urobilinogen Qn (U) 0.2 {Chris'U}/dL Normal 0.2 - 1. 0 [facility] Comment on above: Performed By: #### L IPID, BMP #### [facility] [address] [place] [address] Dr. Jag Waldrop URINE MICROSCOPIC ONLYon BACTERIA TRACE Abnormal NONE SEEN [facility] Comment on above: Performed By: #### L IPID, BMP #### [facility] [address] [place] [address] Dr. Jag Waldrop Bacteria identified Cx Nom (U) INDICATED Normal [facility] Comment on above: Performed By: #### L IPID, BMP #### [facility] [address] [place] [address] Dr. Jag Waldrop CAST NONE SEEN Normal NONE SEEN [facility] Comment on above: Performed By: #### L IPID, BMP #### [facility] [address] [place] [address] Dr. Jag Waldrop Crystals LM Nom (Urine sed) NONE SEEN Normal NONE SEEN [facility] Comment on above: Performed By: #### L IPID, BMP #### [facility] [address] [place] [address] Dr. Jag Waldrop Epithelial cells LM Ql (Urine sed) RARE Normal NONE SEEN /RARE [facility] Comment on above: Performed By: #### L IPID, BMP #### [facility] [address] [place] [address] Dr. Jag Waldrop MUCOUS TRACE Abnormal NONE SEEN [facility] Comment on above: Performed By: #### L IPID, BMP #### [facility] [address] [place] [address] Dr. Jag Waldrop RBC 0-2 Normal 0-2 [facility] Comment on above: Performed By: #### L IPID, BMP #### [facility] [address] [place] [address] Dr. Jag Waldrop WBC 2-5 Abnormal NONE SEEN [facility] Comment on above: Performed By: #### L IPID, BMP #### [facility] [address] [place] [address] Dr. Jag Waldrop BNPon 10-02-2021 Natriuretic peptide B (Bld) [Mass/Vol] 52.0 pg/mL Normal <=900.0 [facility] Comment on above: Performed By: #### L IPID, BMP #### [facility] [address] [place] [address] Dr. Jag Waldrop CBC AUTO DIFFon 10-02-2021 BASO # 0.1 103/ul Normal 0.0-0.1 [facility] Comment on above: Performed By: #### P OCGLUC #### [facility] [address] [place] [address] Dr. Jag Waldrop Basophils/100 WBC (Bld) 0.8 % Normal 0.2-2.0 [facility] Comment on above: Performed By: #### P OCGLUC #### [facility] [address] [place] [address] Dr. Jag Waldrop EO # 0.2 103/ul Normal 0.0-0.7 [facility] Comment on above: Performed By: #### P OCGLUC #### [facility] [address] [place] [address] Dr. Jag Waldrop Eosinophils/100 WBC (Bld) 3.0 % Normal 0.9-7.0 [facility] Comment on above: Performed By: #### P OCGLUC #### [facility] [address] [place] [address] Dr. Jag Waldrop Erythrocyte distribution width (RBC) [Ratio] 14.2 % Normal 11.0-15.0 [facility] Comment on above: Performed By: #### P OCGLUC #### [facility] [address] [place] [address] Dr. Jag Waldrop Hematocrit (Bld) [Volume fraction] 35.9 % Critically low 36.0-48.0 [facility] Comment on above: Performed By: #### P OCGLUC #### [facility] [address] [place] [address] Dr. Jag Waldrop Hemoglobin (Bld) [Mass/Vol] 11.0 g/dL Critically low 12.0-16.0 [facility] Comment on above: Performed By: #### P OCGLUC #### [facility] [address] [place] [address] Dr. Jag Waldrop IG # 0.03 10e3/ul Normal 0.00-0.03 [facility] Comment on above: Performed By: #### P OCGLUC #### [facility] [address] [place] [address] Dr. Jag Waldrop IG % 0.4 % Normal 0.0-0.5 [facility] Comment on above: Performed By: #### P OCGLUC #### [facility] [address] [place] [address] Dr. Jag Waldrop LYMPH # 2.8 103/ul Normal 1.2-3.8 [facility] Comment on above: Performed By: #### P OCGLUC #### [facility] [address] [place] [address] Dr. Jag Waldrop Lymphocytes/100 WBC (Bld) 37.9 % Normal 20.5-60.0 [facility] Comment on above: Performed By: #### P OCGLUC #### [facility] [address] [place] [address] Dr. Jag Waldrop MANUAL DIFF REQ NO Normal [facility] Comment on above: Performed By: #### P OCGLUC #### [facility] [address] [place] [address] Dr. Jag Waldrop MCH (RBC) [Entitic mass] 28.7 pg Normal 26.7-34.0 [facility] Comment on above: Performed By: #### P OCGLUC #### [facility] [address] [place] [address] Dr. Jag Waldrop MCHC (RBC) [Mass/Vol] 30.6 g/dL Normal 29.9-35.2 [facility] Comment on above: Performed By: #### P OCGLUC #### [facility] [address] [place] [address] Dr. Jag Waldrop MCV (RBC) [Entitic vol] 93.7 fL Normal 81.0-99.0 [facility] Comment on above: Performed By: #### P OCGLUC #### [facility] [address] [place] [address] Dr. Jag Waldrop MONO # 0.5 103/ul Normal 0.3-0.8 [facility] Comment on above: Performed By: #### P OCGLUC #### [facility] [address] [place] [address] Dr. Jag Waldrop Monocytes/100 WBC (Bld) 7.4 % Normal 1.7-12.0 [facility] Comment on above: Performed By: #### P OCGLUC #### [facility] [address] [place] [address] Dr. Jag Waldrop NEUT # 3.7 103/ul Normal 1.4-6.5 [facility] Comment on above: Performed By: #### P OCGLUC #### [facility] [address] [place] [address] Dr. Jag Waldrop Neutrophils/100 WBC (Bld) 50.5 % Normal 43.0-75.0 [facility] Comment on above: Performed By: #### P OCGLUC #### [facility] [address] [address] [address] Jag Waldrop Platelet mean volume (Bld) [Entitic vol] 10.2 fL Normal 9.5-13.5 [facility] Comment on above: Performed By: #### P OCGLUC #### [facility] [address] [address] [address] Jag Waldrop PLT 261 103/ul Normal 150-450 [facility] Comment on above: Performed By: #### P OCGLUC #### [facility] [address] [address] [address] Jag Waldrop RBC 3.83 106/ul Critically low 4.20-5.40 [facility] Comment on above: Performed By: #### P OCGLUC #### [facility] [address] [address] [address] Jag Waldrop WBC 7.3 103/ul Normal 4.0-11.0 [facility] Comment on above: Performed By: #### P OCGLUC #### [facility] [address] [place] [address] Dr. Jag Waldrop POINT OF CARE GLUCOSEon 09-14 Glucose [Mass/Vol] 156 mg/dL Critically high 74-106 [facility] Comment on above: Performed By: #### P OCGLUC #### [facility] [address] [address] [address] aJg Waldrop Glucose [Mass/Vol] 304 mg/dL Critically high 74-106 [facility] Comment on above: Performed By: #### P OCGLUC #### [facility] [address] [address] [address] Jag Waldrop Glucose [Mass/Vol] 77 mg/dL Normal 74-106 [facility] Comment on above: Performed By: #### E RUR #### [facility] [address] [address] [address] Jag Waldrop Glucose [Mass/Vol] 136 mg/dL Critically high 74-106 [facility] Comment on above: Performed By: #### E RUR #### [facility] [address] [address] [address] Jag Waldrop Glucose [Mass/Vol] 73 mg/dL Critically low 74-[address] [facility] Comment on above: Performed By: #### E RUR #### [facility] [address] [address] [address] Jag Waldrop PROF CHEM 8 (BAS METB)on Anion gap [Moles/Vol] 15.5 mmol/L Normal [facility] Comment on above: Performed By: #### P OCGLUC #### [facility] [address] [place] [address] Dr. Jag Waldrop Calcium [Mass/Vol] 8.3 mg/dL Critically low 8.5-10.[address] [facility] Comment on above: Performed By: #### P OCGLUC #### [facility] [address] [place] [address] Dr. Jag Waldrop Chloride [Moles/Vol] 108 mmol/L Critically high 98-107 [facility] Comment on above: Performed By: #### P OCGLUC #### [facility] [address] [place] [address] Dr. Jag Waldrop CO2 [Moles/Vol] 18.9 mmol/L Critically low 21.0-32.0 [facility] Comment on above: Performed By: #### P OCGLUC #### [facility] [address] [place] [address] Dr. Jag Waldrop Creatinine [Mass/Vol] 1.43 mg/dL Critically high 0.55-1.02 [facility] Comment on above: Performed By: #### P OCGLUC #### [facility] [address] [place] [address] Dr. Jag Waldrop EGFR-AF [place]UG[place] 47 mL/min/1.73m2 Critically low >=60 [facility] Comment on above: Performed By: #### P OCGLUC #### [facility] [address] [place] [address] Dr. Jag Waldrop EGFR-NON AF [place] 39 mL/min/1.73m2 Critically low >=60 [facility] Comment on above: Performed By: #### P OCGLUC #### [facility] [address] [address] [address] Jag Waldrop Glucose [Mass/Vol] 269 mg/dL Critically high 74-106 [facility] Comment on above: Performed By: #### P OCGLUC #### [facility] [address] [address] [address] Jag Waldrop Potassium [Moles/Vol] 5.4 mmol/L Critically high 3.5-5.1 [facility] Comment on above: Performed By: #### P OCGLUC #### [facility] [address] [place] [address] Dr. Jag Waldrop Sodium [Moles/Vol] 137 mmol/L Normal 136-145 [facility] Comment on above: Performed By: #### P OCGLUC #### [facility] [address] [address] [address] Jag Waldrop Urea nitrogen [Mass/Vol] 40.0 mg/dL Critically high 7.0-18.0 [facility] Comment on above: Performed By: #### P OCGLUC #### [facility] [address] [place] [address] Dr. Jag Waldrop Urea nitrogen/Creatinine [Mass ratio] 28.0 mg/mg Normal [facility] Comment on above: Performed By: #### P OCGLUC #### [facility] [address] [address] [address] Jag Waldrop Anion gap [Moles/Vol] 14.0 mmol/L Normal [facility] Comment on above: Performed By: #### E RUR #### [facility] [address] [place] [address] Dr. Jag Waldrop Calcium [Mass/Vol] 8.9 mg/dL Normal 8.5-10.1 [facility] Comment on above: Performed By: #### E RUR #### [facility] [address] [address] [address] Jag Waldrop Chloride [Moles/Vol] 110 mmol/L Critically high 98-107 [facility] Comment on above: Performed By: #### E RUR #### [facility] [address] [address] [address] Jag Waldrop CO2 [Moles/Vol] 21.1 mmol/L Normal 21.0-32.0 [facility] Comment on above: Performed By: #### E RUR #### [facility] [address] [address] [address] aJg Waldrop Creatinine [Mass/Vol] 1.32 mg/dL Critically high 0.55-1.02 [facility] Comment on above: Performed By: #### E RUR #### [facility] [address] [place] [address] Dr. Jag Waldrop EGFR-AF [place] 52 mL/min/1.73m2 Critically low >=60 [facility] Comment on above: Performed By: #### E RUR #### [facility] [address] [place] [address] Dr. Jag Waldrop EGFR-NON AF [place] 43 mL/min/1.73m2 Critically low >=60 [facility] Comment on above: Performed By: #### E RUR #### [facility] [address] [place] [address] Dr. Jag Waldrop Glucose [Mass/Vol] 79 mg/dL Normal 74-106 [facility] Comment on above: Performed By: #### E RUR #### [facility] [address] [address] [address] Jag Waldrop Potassium [Moles/Vol] 6.1 mmol/L Critically high 3.5-5.1 [facility] Comment on above: Result Comment: Test Repeated. Critical Value Verified Performed By: #### E RUR #### [facility] [address] [place] [address] Dr. Jag Waldrop Sodium [Moles/Vol] 140 mmol/L Normal 136-145 [facility] Comment on above: Performed By: #### E RUR #### [facility] [address] [address] [address] Jag Waldrop Urea nitrogen [Mass/Vol] 45.0 mg/dL Critically high 7.0-18.0 [facility] Comment on above: Performed By: #### E RUR #### [facility] [address] [address] [address] Jag Waldrop Urea nitrogen/Creatinine [Mass ratio] 34.1 mg/mg Normal [facility] Comment on above: Performed By: #### E RUR #### [facility] [address] [address] [address] Jag Waldrop BASIC METABOLIC PANELon 08-14 Calcium [Mass/Vol] 8.9 mg/dL Normal 8.6-10.3 [facility] Comment on above: Order Comment: No: D o not add to previous draw Performed By: #### 5 [id number], [id number] #### [facility] [address] [place] [address], [place] Chloride [Moles/Vol] 105 mmol/L Normal 98-107 [facility] Comment on above: Order Comment: No: D o not add to previous draw Performed By: #### 5 [id number], [id number] #### [facility] [address] [place] [address], [place] CO2 [Moles/Vol] 26 mmol/L Normal 21-31 [facility] Comment on above: Order Comment: No: D o not add to previous draw Performed By: #### 5 [id number], [id number] #### [facility] [address] [place] [address], [place] Creatinine [Mass/Vol] 0.99 mg/dL Normal 0.60-1.20 [facility] Comment on above: Order Comment: No: D o not add to previous draw Performed By: #### 5 [id number], [id number] #### [facility] [address] [place] [address], [place] GFR/1.73 sq M predicted among blacks MDRD (S/P/Bld) [Vol rate/Area] mL/min/{1.73_m2} Normal >60 [facility] Comment on above: Order Comment: No: D o not add to previous draw Performed By: #### 5 610, [id number] #### [facility] [address] [place] [address], [place] GFR/1.73 sq M predicted among non-blacks MDRD (S/P/Bld) [Vol rate/Area] mL/min/{1.73_m2} Normal >60 [facility] Comment on above: Order Comment: No: D o not add to previous draw Performed By: #### 5 610, [id number] #### [facility] [address] [place] [address], [place] Glucose [Mass/Vol] 145 mg/dL High 70-100 [facility] Comment on above: Order Comment: No: D o not add to previous draw Performed By: #### 5 610, 84627 #### [facility] [address] [place] [address], [place] Potassium [Moles/Vol] 3.7 mmol/L Normal 3.5-5.1 [facility] Comment on above: Order Comment: No: D o not add to previous draw Performed By: #### 5 610, [id number] #### [facility] [address] [place] [address], [place] Sodium [Moles/Vol] 139 mmol/L Normal 136-145 [facility] Comment on above: Order Comment: No: D o not add to previous draw Performed By: #### 5 610, [id number] #### [facility] [address] [place] [address], [place] Urea nitrogen [Mass/Vol] 26 mg/dL High 7-25 [facility] Comment on above: Order Comment: No: D o not add to previous draw Performed By: #### 5 610, 86242 #### [facility] [address] [place] [address], [place] CBC W/DIFFon 08-25-2018 ABS BASOPHILS 0.0 10*3/uL Normal 0.0-0.2 [facility] Comment on above: Order Comment: No: D o not add to previous draw Performed By: #### 5 610, 94609 #### [facility] [address] [place] [address], [facility] ABS IMM GRANS 0.0 10*3/uL Normal 0.0-0.2 [facility] Comment on above: Order Comment: No: D o not add to previous draw Performed By: #### 5 610, 76962 #### [facility] [address] [facility] [place] [address], [facility] ABS NEUTROPHILS 2.3 10*3/uL Normal 1.6-7.6 [facility] Comment on above: Order Comment: No: D o not add to previous draw Performed By: #### 5 610, [id number] #### [facility] [address] [facility] [place] [address], [facility] Basophils/100 WBC (Bld) 0.3 % Normal 0.0-1.0 [facility] Comment on above: Order Comment: No: D o not add to previous draw Performed By: #### 5 610, 25691 #### [facility] [address] [facility] [place] [place] [address], [facility] Eosinophils (Bld) [#/Vol] 0.0 10*3/uL Normal 0.0-0.5 [facility] Comment on above: Order Comment: No: D o not add to previous draw Performed By: #### 5 610, 48793 #### [facility] [address] [place] [address], [facility] Eosinophils/100 WBC (Bld) 0.0 % Normal 0.0-6.0 [facility] Comment on above: Order Comment: No: D o not add to previous draw Performed By: #### 5 610, 01625 #### [facility] [address] Erythrocyte distribution width (RBC) [Ratio] 13.3 % Normal 11.5-15.0 [facility] Comment on above: Order Comment: No: D o not add to previous draw Performed By: #### 5 6100, 27078 #### [facility] [address] [place] [address], [facility] Hematocrit (Bld) [Volume fraction] 37.7 % Normal 36.0-45.0 [facility] Comment on above: Order Comment: No: D o not add to previous draw Performed By: #### 5 6100, 89973 #### [facility] [address] [facility] [place] [address], [facility] Hemoglobin (Bld) [Mass/Vol] 12.1 g/dL Normal 12.0-15.0 [facility] Comment on above: Order Comment: No: D o not add to previous draw Performed By: #### 5 6100, 63339 #### [facility] [address] [facility] [place] [address], [facility] IMMATURE GRANS 0.2 % Normal 0.0-1.0 [facility] Comment on above: Order Comment: No: D o not add to previous draw Performed By: #### 5 6100, [id number] #### [facility] [address] [place] [address], [facility] Lymphocytes (Bld) [#/Vol] 3.0 10*3/uL Normal 1.2-4.0 [facility] Comment on above: Order Comment: No: D o not add to previous draw Performed By: #### 5 6100, [id number] #### [facility] [address] [place] [address], [facility] Lymphocytes/100 WBC (Bld) 52.0 % High 20.0-45.0 [facility] Comment on above: Order Comment: No: D o not add to previous draw Performed By: #### 5 6100, 82125 #### [facility] [address] [place] [id number], [facility] MCH (RBC) [Entitic mass] 28.7 pg Normal 27.0-33.0 [facility] Comment on above: Order Comment: No: D o not add to previous draw Performed By: #### 5 6100, 12033 #### [facility] [address] [place] [id number], [facility] MCHC (RBC) [Mass/Vol] 32.1 g/dL Normal 32.0-35.0 [facility] Comment on above: Order Comment: No: D o not add to previous draw Performed By: #### 5 6100, 95906 #### [facility] [address] [place] [id number], [facility] MCV (RBC) [Entitic vol] 89.3 fL Normal 82.0-98.0 [facility] Comment on above: Order Comment: No: D o not add to previous draw Performed By: #### 5 6100, 11757 #### [facility] [address] [place] [address], [facility] Monocytes (Bld) [#/Vol] 0.5 10*3/uL Normal 0.1-1.0 [facility] Comment on above: Order Comment: No: D o not add to previous draw Performed By: #### 5 6100, 37587 #### [facility] [address] [place] [address], [facility] MONOS 7.9 % Normal 5.0-12.0 [facility] Comment on above: Order Comment: No: D o not add to previous draw Performed By: #### 5 6100, 01514 #### [facility] [address] [place] [address], [facility] Neutrophils/100 WBC (Bld) 39.6 % Low 40.0-72.0 [facility] Comment on above: Order Comment: No: D o not add to previous draw Performed By: #### 5 6100, 73963 #### [facility] [address] [place] [address], [facility] Nucleated RBC/100 WBC (Bld) [Ratio] 0 % Normal 0-0 [facility] Comment on above: Order Comment: No: D o not add to previous draw Performed By: #### 5 6100, 78186 #### [facility] [address] [place] [address], [facility] PLAT CNT 236 10*3/uL Normal 150-400 [facility] Comment on above: Order Comment: No: D o not add to previous draw Performed By: #### 5 6100, 28386 #### [facility] [address] [place] [address], [facility] RBC (Bld) [#/Vol] 4.22 10*6/uL Normal 3.80-5.00 [facility] Comment on above: Order Comment: No: D o not add to previous draw Performed By: #### 5 6100, 59146 #### [facility] [address] [place] [address], [facility] WBC (Bld) [#/Vol] 5.85 10*3/uL Normal 4.00-10.60 [facility] Comment on above: Order Comment: No: D o not add to previous draw Performed By: #### 5 6100, 86365 #### [facility] [address] POC GLUCOSE LABon 08-25-2018 Glucose [Mass/Vol] 180 mg/dL High 70-100 [facility] Comment on above: Performed By: #### 5 6100, 99165 #### [facility] [address] [place] [address], [facility] Glucose [Mass/Vol] 129 mg/dL High 70-100 [facility] Comment on above: Performed By: #### 5 6100, 75060 #### [facility] [address] [place] [address], [facility] Glucose [Mass/Vol] 132 mg/dL High 70-100 [facility] Comment on above: Performed By: #### 5 0608 #### [facility] [address] [place] [address], [facility] UFH HEPARIN ASSAYon 08-26-19 19 UNFRACTIONATED HEPARIN <0.10 Critically low 0.30-0.70 [facility] Comment on above: Result Comment: [place] roxaban and Apixaban will interfere with the anti Xa assay used to monitor UFH and LMWH. RESULTS CHECKED AND CALLED. ACCURATELY READ BACK BY JANENE ZAMARRIPA RN AT 0554 Performed By: #### 5 6101, 25996 #### [facility] [address] [place] [address], [facility] BASIC METABOLIC PANELon 08-14 Calcium [Mass/Vol] 8.5 mg/dL Low 8.6-10.3 [facility] Comment on above: Order Comment: No: D o not add to previous draw Performed By: #### 5 0608 #### [facility] [address] [facility] [place] [address], [facility] Chloride [Moles/Vol] 104 mmol/L Normal 98-107 [facility] Comment on above: Order Comment: No: D o not add to previous draw Performed By: #### 5 0608 #### [facility] [address] [facility] [place] [place] [address], [facility] CO2 [Moles/Vol] 27 mmol/L Normal 21-31 [facility] Comment on above: Order Comment: No: D o not add to previous draw Performed By: #### 5 0608 #### [facility] [address] [facility] [place] [address], [facility] Creatinine [Mass/Vol] 1.13 mg/dL Normal 0.60-1.20 [facility] Comment on above: Order Comment: No: D o not add to previous draw Performed By: #### 5 0608 #### [facility] [address] [place] [address], [place] GFR/1.73 sq M predicted among blacks MDRD (S/P/Bld) [Vol rate/Area] mL/min/{1.73_m2} Normal >60 [facility] Comment on above: Order Comment: No: D o not add to previous draw Performed By: #### 5 0608 #### [facility] [address] [place] [address], [place] GFR/1.73 sq M predicted among non-blacks MDRD (S/P/Bld) [Vol rate/Area] 52 ml/min/1.73sq m Abnormal >60 [facility] Comment on above: Order Comment: No: D o not add to previous draw Performed By: #### 5 0608 #### [facility] [address] [place] [address], [place] Glucose [Mass/Vol] 131 mg/dL High 70-100 [facility] Comment on above: Order Comment: No: D o not add to previous draw Performed By: #### 5 0608 #### [facility] [address] [place] [address], [place] Potassium [Moles/Vol] 3.9 mmol/L Normal 3.5-5.1 [facility] Comment on above: Order Comment: No: D o not add to previous draw Performed By: #### 5 0608 #### [facility] [address] [place] [address], [place] Sodium [Moles/Vol] 141 mmol/L Normal 136-145 [facility] Comment on above: Order Comment: No: D o not add to previous draw Performed By: #### 5 0608 #### [facility] [address] [place] [address], [place] Urea nitrogen [Mass/Vol] 28 mg/dL High 7-25 [facility] Comment on above: Order Comment: No: D o not add to previous draw Performed By: #### 5 0608 #### [facility] [address] CBC COMPLETE BLOOD COUNTon 08-24-2018 Erythrocyte distribution width (RBC) [Ratio] 13.5 % Normal 11.5-15.0 [facility] Comment on above: Order Comment: No: D o not add to previous draw Performed By: #### 5 0608 #### [facility] [address] [place] [address], [facility] Hematocrit (Bld) [Volume fraction] 37.1 % Normal 36.0-45.0 [facility] Comment on above: Order Comment: No: D o not add to previous draw Performed By: #### 5 0608 #### [facility] [address] [place] [address], [facility] Hemoglobin (Bld) [Mass/Vol] 12.2 g/dL Normal 12.0-15.0 [facility] Comment on above: Order Comment: No: D o not add to previous draw Performed By: #### 5 0608 #### [facility] [address] [place] [address], [facility] MCH (RBC) [Entitic mass] 28.8 pg Normal 27.0-33.0 [facility] Comment on above: Order Comment: No: D o not add to previous draw Performed By: #### 5 0608 #### [facility] [address] [place] [address], [facility] MCHC (RBC) [Mass/Vol] 32.9 g/dL Normal 32.0-35.0 [facility] Comment on above: Order Comment: No: D o not add to previous draw Performed By: #### 5 0608 #### [facility] [address] [place] [id number], [facility] MCV (RBC) [Entitic vol] 87.7 fL Normal 82.0-98.0 [facility] Comment on above: Order Comment: No: D o not add to previous draw Performed By: #### 5 0608 #### [facility] [address] [facility] [address], [facility] Nucleated RBC/100 WBC (Bld) [Ratio] 0 % Normal 0-0 [facility] Comment on above: Order Comment: No: D o not add to previous draw Performed By: #### 5 0608 #### [facility] [address] [facility] [address], [facility] PLAT CNT 251 10*3/uL Normal 150-400 [facility] Comment on above: Order Comment: No: D o not add to previous draw Performed By: #### 5 0608 #### [facility] [address] [facility] [address], [facility] RBC (Bld) [#/Vol] 4.23 10*6/uL Normal 3.80-5.00 [facility] Comment on above: Order Comment: No: D o not add to previous draw Performed By: #### 5 0608 #### [facility] [address] [facility] [address], [facility] WBC (Bld) [#/Vol] 8.42 10*3/uL Normal 4.00-10.60 [facility] Comment on above: Order Comment: No: D o not add to previous draw Performed By: #### 5 0608 #### [facility] [address] Cardiovascular Lab Reporton 08-24-2018 Cardiovascular Lab Report [facility] Patient Name: Petr [facility] A MR #: [id number] Department of Physician: Marshall Torres M.D. Division of Service Date: 08/23/2018 Cardiology Birthdate: 1970 Adult Cardiovascular Room #: 3AB 186030 [facility] [place] [address] Cardiovascular Laboratory Report FINAL IMPRESSION: 1. Mild 3-vessel coronary artery disease. 2. Patent stent in the left anterior descending coronary artery. 3. Normal global left ventricular systolic function by noninvasive imaging. RECOMMENDATIONS/PLAN: 1. Will add Imdur 30 mg daily for possible coronary spasm and/or small-vessel disease. 2. Aggressive cardiovascular risk factor modification. 3. Optimization of medical management; aspirin, high-intensity statin therapy, the beta-seema, plus or minus an angiotensin-converting enzyme indicated. 4. Consider alternate etiologies for the patient's chest pain symptoms namely pulmonary, gastrointestinal, and/or musculoskeletal. 5. Follow up with me in the [facility] post discharge. 6. Further recommendations deferred to the inpatient services. PROCEDURES: Bilateral selective coronary angiography via the left radial approach. METHODS: After the risks, benefits, and alternatives were explained, written informed consent was obtained. The patient was prepped and draped in usual sterile fashion over the right neck and left wrist. Initial plans were to include right heart catheterization. Ultrasound assessment of the right internal jugular vein showed a collapsible vein indicative of probable normal, if not low right-sided filling pressures. Therefore, this was aborted. Local infiltration anesthesia was achieved over the left wrist using 1% lidocaine solution. Using a modified Seldinger technique and a micropuncture kit, access of the left radial artery was obtained. A 6-[place] Glidesheath was inserted without difficulty. Bilateral selective coronary angiography was performed using JL4 and JR4 catheters. After reviewing the images, it was elected to conclude the procedure. All catheters were removed. The radial sheath was removed with application of a TR band per protocol to achieve optimal hemostasis. Overall, the patient tolerated the procedure well. There were no overt complications. She was to be transferred to the hospital room in stable condition. FINDINGS: Hemodynamics: AO 138/81. LEFT VENTRICULOGRAPHY: This was not performed. Ejection fraction is normal by echocardiography. CORONARY ARTERIES: Left main coronary artery. This arises from the left coronary cusp. It bifurcates into the left anterior descending and left circumflex coronary arteries and is free of significant stenosis. Left anterior descending coronary artery. This shows mild plaque proximally. There is a patent stent in the midportion of the vessel with no significant in-stent restenosis. Prior to the stent, there is 20% to 30% stenosis adjacent to a prominent septal teacher specialist. There are luminal irregularities throughout the remainder of the vessel. Left circumflex coronary artery. This shows no significant disease and is angiographically nonobstructive. Right coronary artery. This is a dominant vessel giving rise to the posterior descending and posterolateral branches. It shows a 30% to 40% midvessel stenosis and a 30% stenosis at the crux involving the distal vessel and the posterior descending artery. The posterior circulation shows caliber reduction. INDICATIONS: Chest pain and history of coronary artery disease. Electronically Signed by: Tk Godoy M.D. 09/04/2018 12:45 P Tk Godoy M.D. Date Dict: 08/23/2018/04:28 Loreto/Tk Godoy M.D. Date Trans: 08/24/2018 06:37 A/yadira [id number] cc: Geovanni Myers D.O. [address] [facility] [address] Normal [facility] HIP RIGHT 1 OR 2 VWS WITH PE LVISon 08-24-2018 HIP RIGHT 1 OR 2 VWS WITH PELVIS [facility] Department of Radiology [address] [place] [id number] ===== Patient Name: SHERLY HUMPHREYS : 1970 Sex: F Age: Race: White Pt. Location: [id number] Patient Status: D Ordered Date: 08/24/2018 12:30:00 PM Completed Date: 08/24/2018 02:52 PM Requesting Provider: PENG VALLES Attending Provider: PENG VALLES Report Copy To: Signs & Symptoms: Pain ( specify Location) History: Patient history not available Comments: R/O DJD Exam: HIP RIGHT 1 OR 2 VWS WITH PELVIS ===== HIP RIGHT 1 OR 2 VWS WITH PELVIS 08/24/2018 2:52 PM EDT SIGNS AND SYMPTOMS: Pain ( specify Location) TECHNOLOGIST COMMENTS: right hip pain x 6 months no known trauma QUESTION FOR THE RADIOLOGIST: R/O DJD PROTOCOL: AP(PA) and Lateral views were obtained. COMPARISON: None FINDINGS: Soft tissues: Unremarkable. Bones: No acute fracture or dislocation. Joints: Unremarkable. IMPRESSION: 1. Unremarkable right hip radiograph. Approved by:Dl Goldberg on 08/24/2018 6:38 PM EDT. I, Kristy Jones, have reviewed the images and report and concur with these findings. Electronically signed by:Kristy Jones. Transcribed by: [email or web address], User Resident: [email or web address] Electronically Signed by: KRISTY JONES @ 08/25/2018 08:05 PM I personally read this/these film(s) with this resident Normal [facility] Comment on above: Order Comment: No: D o not add to previous draw POC GLUCOSE LABon 08-24-2018 Glucose [Mass/Vol] 125 mg/dL High 70-100 [facility] Comment on above: Performed By: #### 5 0608 #### [facility] [address] [place] [address], [place] Glucose [Mass/Vol] 150 mg/dL High 70-100 [facility] Comment on above: Performed By: #### 5 0608 #### [facility] [address] [place] [address], [place] Glucose [Mass/Vol] 119 mg/dL High 70-100 [facility] Comment on above: Performed By: #### 5 0608 #### [facility] [address] UFH HEPARIN ASSAYon 08-25-19 19 UNFRACTIONATED HEPARIN <0.10 Critically low 0.30-0.70 [facility] Comment on above: Result Comment: [place] roxaban and Apixaban will interfere with the anti Xa assay used to monitor UFH and LMWH. RESULTS CHECKED AND CALLED. ACCURATELY READ BACK BY JANENE ZAMARRIPA RN AT 0732 Performed By: #### 5 0608 #### [facility] [address] APTTon 08-23-2018 aPTT Coag (Bld) [Time] 38.8 s High 25.0-35.0 [facility] Comment on above: Order Comment: No: D o not add to previous draw Result Comment: ALL RESULTS MUST BE INTERPRETED WITH RESPECT TO BLOOD DRAWING ARTIFACT OR DILUTION ERROR OF ANTICOAGULANT AT THE TIME OF SAMPLING. THE APTT SHOULD NOT BE USED TO MONITOR UNFRACTIONATED HEPARIN THERAPY, THIS LABORATORY NO LONGER HAS AN ESTABLISHED THERAPEUTIC RANGE BASED ON THE APTT. IT IS RECOMMENDED THAT THE UFH - HEPARIN ASSAY (ANTI-XA ACTIVITY) BE USED FOR THIS PURPOSE. Performed By: #### 5 6101, 75434 #### [facility] [address] [facility]. [address] CBC COMPLETE BLOOD COUNTon 0 08-23-2018 Erythrocyte distribution width (RBC) [Ratio] 13.3 % Normal 11.5-15.0 [facility] Comment on above: Order Comment: No: D o not add to previous draw Performed By: #### 5 0608 #### [facility] [address] [facility] [address] Hematocrit (Bld) [Volume fraction] 41.4 % Normal 36.0-45.0 [facility] Comment on above: Order Comment: No: D o not add to previous draw Performed By: #### 5 0608 #### [facility] [address] [facility] [address] Hemoglobin (Bld) [Mass/Vol] 13.8 g/dL Normal 12.0-15.0 [facility] Comment on above: Order Comment: No: D o not add to previous draw Performed By: #### 5 0608 #### [facility] [address] [facility] [address], [facility] MCH (RBC) [Entitic mass] 29.0 pg Normal 27.0-33.0 [facility] Comment on above: Order Comment: No: D o not add to previous draw Performed By: #### 5 0608 #### [facility] [address] MCHC (RBC) [Mass/Vol] 33.3 g/dL Normal 32.0-35.0 [facility] Comment on above: Order Comment: No: D o not add to previous draw Performed By: #### 5 0608 #### [facility] [address] [facility] [address], [facility] MCV (RBC) [Entitic vol] 87.0 fL Normal 82.0-98.0 [facility] Comment on above: Order Comment: No: D o not add to previous draw Performed By: #### 5 0608 #### [facility] [address] Nucleated RBC/100 WBC (Bld) [Ratio] 0 % Normal 0-0 [facility] Comment on above: Order Comment: No: D o not add to previous draw Performed By: #### 5 0608 #### [facility] [address] [place] [address], [facility] PLAT CNT 293 10*3/uL Normal 150-400 [facility] Comment on above: Order Comment: No: D o not add to previous draw Performed By: #### 5 0608 #### [facility] [address] [place] [address], [facility] RBC (Bld) [#/Vol] 4.76 10*6/uL Normal 3.80-5.00 [facility] Comment on above: Order Comment: No: D o not add to previous draw Performed By: #### 5 0608 #### [facility] [address] WBC (Bld) [#/Vol] 10.48 10*3/uL Normal 4.00-10.60 [facility] Comment on above: Order Comment: No: D o not add to previous draw Performed By: #### 5 0608 #### [facility] [address] History and Physicalon 08-23 History and Physical MR#: [id number] [facility] Pt. Name: Sherly Humphreys Admitted: 08/23/2018 Date of : 1970 Attending Physician: Nini Valente MD Room #: 3AB [id number] Discharge Date: HISTORY AND PHYSICAL CHIEF COMPLAINT: Transfer from another hospital due to chest pain. HISTORY OF PRESENT ILLNESS: This is a 47-year-old female with past medical history significant for coronary artery disease status post stent in 2009, uncontrolled hypertension, diabetes, obesity, dyslipidemia, obstructive sleep apnea on CPAP, and reported history of congestive heart failure, who was in her usual state of health up until last night yesterday when she started having severe 8/10 pressure-like substernal chest pain associated with shortness of breath and excessive sweating with no radiation. The patient checked her blood pressure at home at that time and she had the reading of 180s and she went to the emergency department in [facility]. Initial evaluation included troponin and EKG, which were negative. The patient was started on nitroglycerin patch. She experienced some relief after starting the nitroglycerin patch. Her pain went down from 8 to 6/10. Given her significant cardiac history, the patient was transferred to [facility] for further evaluation. The patient reports that she follows up regularly with Dr. Godoy from Cardiology. The patient reports being compliant with her medications. Recently, the dose of the lisinopril was increased to 40 mg and chlorthalidone was added to her medication regimen. The patient reports no dizziness. No change of vision. She does have headache after starting the nitroglycerin. No weakness. No nausea or vomiting. No change in bowel or urinary habits. PAST MEDICAL HISTORY: Significant for coronary artery disease status post stent in 2010, congestive heart failure with preserved ejection fraction, hypertension, diabetes mellitus, hyperlipidemia, bipolar disorder, and obstructive sleep apnea. PAST SURGICAL HISTORY: Include neck surgery, back surgery, hysterectomy, and tonsillectomy. SOCIAL HISTORY: The patient is a nonsmoker. She does not drink alcohol. ALLERGIES: She is allergic to Bactrim, Compazine, Keflex, Phenergan, and omeprazole. MEDICATIONS: At home reviewed and reconciled. FAMILY HISTORY: Significant family history of cardiac diseases in both parents. REVIEW OF SYSTEMS: A 12-point is done, pertinent positives and negatives as per HPI. PHYSICAL EXAMINATION: BP:161/98, HR:54, pulse ox 97%RA, RR:20, temp 98.2 GENERAL: She is morbidly obese female, in mild distress due to chest pain, lying in bed, and speaking in full sentences. HEENT: Pupils are equal, round, and reactive to light. Extraocular muscles intact. Mucous membranes are moist. NECK: Supple. No JVD. No LAD. HEART: Normal S1 and S2. Regular rate and rhythm. No murmurs, rubs, or gallop. LUNGS: Clear to auscultation bilaterally with no wheezes, rhonchi, or crackles. ABDOMEN: Soft, nontender, and nondistended. Positive bowel sounds. NEUROLOGICAL: No facial asymmetry. Muscle strength is 5/5 in both upper and lower limbs. SKIN: Warm/dry. EXTREMITIES: No edema. LABORATORY DATA: EKG done and is showing sinus bradycardia, otherwise normal EKG with no ST-T wave changes. Troponin from [facility] was 0.01. Pending troponin in our facility. ASSESSMENT AND PLAN: 1. Unstable angina. We will start the patient on heparin drip and we will start the patient on nitroglycerin drip. We will keep her on oxygen. The patient was given a beta-seema. We will continue with the beta-seema. We will continue with the aspirin and high-intensity statin. We will consult Cardiology. We will keep the patient n.p.o. 2. Diabetes mellitus, we will hold off on her metformin and we will switch her to insulin coverage. 3. Hypertensive urgency. The patient will be on nitroglycerin drip. Her blood pressure went down from 180 to the most recent one of 160. We will monitor and adjust the dose of the antihypertensive medications accordingly. 4. Dyslipidemia. We will continue with high-intensity statin. 5. Obstructive sleep apnea. We will continue with CPAP at night. 6. Bipolar disorder. We will continue with her antipsychotic medications in house. Electronically Signed by: Nini Valente MD 08/23/2018 06:45 A Nini Valente MD Date Dict: 08/23/2018/05:46 A/Nini Valente MD Date Trans: 08/23/2018 06:27 Amanda/yadira [id number] Normal [facility] POC GLUCOSE LABon 08-23-2018 Glucose [Mass/Vol] 101 mg/dL High 70-100 [facility] Comment on above: Performed By: #### 5 0608 #### [facility] [address] Glucose [Mass/Vol] 96 mg/dL Normal 70-100 [facility] Comment on above: Performed By: #### 5 0608 #### [facility] [address] [place] [address], [facility] Glucose [Mass/Vol] 134 mg/dL High 70-100 [facility] Comment on above: Performed By: #### 8 [id number] #### [facility] [address] Glucose [Mass/Vol] 164 mg/dL High 70-100 [facility] Comment on above: Performed By: #### [id number] #### [facility] [address] PROTHROMBIN TIMEon 9 INR Coag (PPP) [Relative time] 1.06 {INR} Normal 0.91-1.16 [facility] Comment on above: Order Comment: No: D o not add to previous draw Result Comment: ACCC P RECOMMENDED INR FOR WARFARIN THERAPY ------ ------- CONDITION INR PROPHYLAXIS OF VENOUS THROMBOSIS 2-3 (HIGH-RISK SURGERY) TREATMENT OF VENOUS THROMBOSIS 2-3 TREATMENT OF PULMONARY EMBOLISM 2-3 PREVENTION OF SYSTEMIC EMBOLISM: 2-3 ACUTE MYOCARDIAL INFARCTION TISSUE HEART VALVES VALVULAR HEART DISEASE ATRIAL FIBRILLATION RECURRENT SYSTEMIC EMBOLISM MECHANICAL HEART VALVE 2.5-3.5 FROM: ORAL ANTICOAGULANTS. MECHANISM OF ACTION, CLINICAL EFFECTIVENESS, AND OPTIMAL THERAPEUTIC RANGE. CHEST 1995;108:231S-246S. Performed By: #### [id number], [id number] #### [facility] [address] PT Coag (PPP) [Time] 13.8 s Normal 12.3-14.8 [facility] Comment on above: Order Comment: No: D o not add to previous draw Result Comment: ALL RESULTS MUST BE INTERPRETED WITH RESPECT TO BLOOD DRAWING ARTIFACT OR DILUTION ERROR OF ANTICOAGULANT AT THE TIME OF SAMPLING. Performed By: #### [id number], [id number] #### [facility] [address] SERUM TESTon 08-23 TEST Negative Normal [facility] Comment on above: Order Comment: Yes: Add to Previous draw if able Performed By: #### [id number] #### [facility] [address] [facility] [place] [place] [address], [facility] TROPONIN-Ion 08-23-2018 Troponin I.cardiac [Mass/Vol] 0.01 ng/mL Normal 0.00-0.04 [facility] Comment on above: Order Comment: No: D o not add to previous draw Result Comment: REFE RENCE RANGES: 0.00 - 0.04 ng/ml NORMAL 0.05 - 0.50 ng/ml INDETERMINATE > 0.50 ng/ml CONSISTENT WITH AN M.I. Performed By: #### 3 [id number] #### [address] UFH HEPARIN ASSAYon 08-24-19 19 UNFRACTIONATED HEPARIN 0.42 IU/mL Normal 0.30-0.70 [facility] Comment on above: Order Comment: per beatriz schneider Result Comment: [place] roxaban and Apixaban will interfere with the anti Xa assay used to monitor UFH and LMWH. Performed By: #### 3 [id number] #### [address] UNFRACTIONATED HEPARIN 0.29 IU/mL Low 0.30-0.70 [facility] Comment on above: Result Comment: [place] roxaban and Apixaban will interfere with the anti Xa assay used to monitor UFH and LMWH. Performed By: #### 3 [id number] #### [address] US GALLBLADDERon 08-23-2018 US GALLBLADDER [facility] Department of Radiology [address] [place] [id number] ===== Patient Name: SHERLY HUMPHREYS : 1970 Sex: F Age: Race: White Pt. Location: [id number] Patient Status: I Ordered Date: 08/23/2018 11:30:00 AM Completed Date: 08/23/2018 01:41 PM Requesting Provider: PENG VALLES Attending Provider: PENG VALLES Report Copy To: Signs & Symptoms: RUQ/Abdominal Pain History: Patient history not available Comments: R/O Biliary Disease Exam: US GALLBLADDER ===== US GALLBLADDER 08/23/2018 1:41 PM EDT SIGNS AND SYMPTOMS: RUQ/Abdominal Pain TECHNOLOGIST COMMENTS: ruq pain QUESTION FOR THE RADIOLOGIST: R/O Biliary Disease TECHNIQUE: Limited abdominal ultrasound. COMPARISON: none FINDINGS: The gallbladder appears normal in its size and shape and has a normal appearing wall. No abnormal echoes are noted from within the gallbladder to suggest calculi. The bile duct measured 6 mm. The liver appeared diffusely echogenic with a focal area of relatively diminished echogenicity near the gallbladder. IMPRESSION: Unremarkable gallbladder. Suggestion of hepatic steatosis with focal fatty sparing adjacent to the gallbladder. Electronically signed by:Nathan Mattson. Transcribed by: [email or web address], User Resident: Electronically Signed by: NATHAN MATTSON @ 08/23/2018 03:33 PM Normal [facility] Comment on above: Order Comment: No: D o not add to previous draw Vital Signs Date Time Vital Sign Value Performing Clinician Facility 08-14-2022 10:15-0400 Body height 162.56 cm Ivan Sams Other [facility] Other 08-14-2022 10:15-0400 Body mass index (BMI) [Ratio] 51.63 kg/m2 Ivan Sams Other [facility] Other 08-14-2022 10:15-0400 Body weight 136.44 kg Ivan Sams Other [facility] Other 08-14-2022 10:15-0400 Diastolic blood pressure 80 mm[Hg] Ivan Sams Other [facility] Other 08-14-2022 10:15-0400 SaO2% (BldA) [Mass fraction] 99 % Ivan Sams Other [facility] Other 08-14-2022 10:15-0400 Systolic blood pressure 140 mm[Hg] Ivan Sams Other [facility] Other 07-03-2022 12:30-0400 Body height 162.56 cm Ivan Sams Other [facility] Other 07-03-2022 12:30-0400 Body mass index (BMI) [Ratio] 51.39 kg/m2 Ivan Sams Other [facility] Other 07-03-2022 12:30-0400 Body weight 135.81 kg Ivan Sams Other [facility] Other 07-03-2022 12:30-0400 Diastolic blood pressure 84 mm[Hg] Ivan Sams Other [facility] Other 07-03-2022 12:30-0400 SaO2% (BldA) [Mass fraction] 99 % Ivan Sams Other [facility] Other 07-03-2022 12:30-0400 Systolic blood pressure 142 mm[Hg] Ivan Sams Other [facility] Other 06-24-2022 15:59-0500 Body height 162.56 cm Janene Lew Work Phone: 06-24-2022 15:59-0500 Body temperature 98.2 [degF] Janene Aichholz Work Phone: 06-24-2022 15:59-0500 Body weight 134.4 kg Janene Aichholz Work Phone: 06-24-2022 15:59-0500 Diastolic blood pressure 95 mm[Hg] Janene Aichholz Work Phone: 06-24-2022 15:59-0500 Heart rate 94 /min Janene Aichholz Work Phone: 06-24-2022 15:59-0500 Respiratory rate 20 /min Janene Aichholz Work Phone: 06-24-2022 15:59-0500 SaO2% (BldA) [Mass fraction] 96 % Janene Karenholz Work Phone: 06-24-2022 15:59-0500 Systolic blood pressure 187 mm[Hg] Janene Karenholz Work Phone: 05-12-2022 12:00-0500 Body height 162.56 cm Christian Mckenzie Other [facility] Other 05-12-2022 12:00-0500 Body mass index (BMI) [Ratio] 51.94 kg/m2 Christian Mckenzie Other [facility] Other 05-12-2022 12:00-0500 Body weight 137.26 kg Christian Mckenzie Other [facility] Other 04-25-2022 12:20-0500 Body height 162.56 cm Halle Mac Other [facility] Other 04-25-2022 12:20-0500 Body mass index (BMI) [Ratio] 51.94 kg/m2 Aziz Bakhous Other [facility] Other 04-25-2022 12:20-0500 Body temperature 97.5 [degF] Halle Webers Other [facility] Other 04-25-2022 12:20-0500 Body weight 137.26 kg Halle Webers Other [facility] Other 04-25-2022 12:20-0500 Diastolic blood pressure 80 mm[Hg] Halle Webers Other [facility] Other 04-25-2022 12:20-0500 Respiratory rate 18 /min Halle Webers Other [facility] Other 04-25-2022 12:20-0500 SaO2% (BldA) [Mass fraction] 97 % Halle Mac Other [facility] Other 04-25-2022 12:20-0500 Systolic blood pressure 140 mm[Hg] Halle Webers Other [facility] Other 01-25-2022 16:15-0400 Body height 162.56 cm Emma Bolivar Other [facility] Other 01-25-2022 16:15-0400 Body mass index (BMI) [Ratio] 52.78 kg/m2 Emma Bolivar Other [facility] Other 01-25-2022 16:15-0400 Body temperature 97.1 [degF] Emma Bolivar Other [facility] Other 01-25-2022 16:15-0400 Body weight 139.48 kg Emma Bolivar Other [facility] Other 01-25-2022 16:15-0400 Diastolic blood pressure 70 mm[Hg] Emma Bolivar Other [facility] Other 01-25-2022 16:15-0400 SaO2% (BldA) [Mass fraction] 98 % Emma Bolivar Other [facility] Other 01-25-2022 16:15-0400 Systolic blood pressure 142 mm[Hg] Emma Bolivar Other [facility] Other 12-06-2021 12:20-0400 Body height 162.56 cm Christian Mckenzie Other [facility] Other 12-06-2021 12:20-0400 Body mass index (BMI) [Ratio] 46.34 kg/m2 Christian Mckenzie Other [facility] Other 12-06-2021 12:20-0400 Body weight 122.47 kg Christian Mckenzie Other [facility] Other 11-10-2021 16:20-0400 Body height 162.56 cm Christian Mckenzie Other [facility] Other 11-10-2021 16:20-0400 Body mass index (BMI) [Ratio] 46.34 kg/m2 Christian Mckenzie Other [facility] Other 11-10-2021 16:20-0400 Body weight 122.47 kg Christian Mckenzie Other [facility] Other 09-29-2021 14:00-0400 Body height 162.56 cm Christian Mckenzie Other [facility] Other 09-29-2021 14:00-0400 Body mass index (BMI) [Ratio] 46 kg/m2 Christian Mckenzie Other [facility] Other 09-29-2021 14:00-0400 Body weight 121.56 kg Christian Mckenzie Other [facility] Other 08-30-2021 15:40-0400 Body height 162.56 cm Christian Mckenzie Other [facility] Other 08-30-2021 15:40-0400 Body mass index (BMI) [Ratio] 46 kg/m2 Christian Mckenzie Other [facility] Other 08-30-2021 15:40-0400 Body weight 121.56 kg Christian Mckenzie Other [facility] Other Encounters Encounter Date Encounter Type Care Provider Facility Start: 05-03-2023 End: 05-03-2023 ambulatory JANENE LEW Not Available Start: 03-14-2023 End: 03-14-2023 ambulatory [facility] Start: 02-19-2023 End: 02-20-2023 ambulatory Elza Conway MD Facility:[facility] Start: 01-25-2023 ambulatory Janene Lew Facilit y: Start: 01-01-2023 End: 01-02-2023 ambulatory Elza Conway MD Facility:[facility] Start: 11-30-2022 End: 11-30-2022 [facility] Start: 11-29-2022 End: 11-29-2022 ambulatory Halle Mac Other [facility] Other Start: 11-29-2022 Telephone encounter Halle Mac [facility] Start: 09-29-2022 End: 09-29-2022 ambulatory [facility] Start: 09-18-2022 End: 09-18-2022 ambulatory Ivan Sams Other [facility] Other Start: 09-18-2022 Telephone encounter Ivan Sams [facility] Start: 09-07-2022 End: 09-07-2022 ambulatory ELECTRONIC DEVICE MONITOR JANENE KARENHOLZ Facility:[facility] Start: 08-14-2022 End: 08-14-2022 ambulatory Ivanying Sams Other [facility] Other Start: 08-14-2022 Office outpatient vi sit 25 minutes Ivan Latrell [facility] Start: 07-03-2022 End: 07-03-2022 ambulatory Ivan Sams Other [facility] Other Start: 07-03-2022 Office consultation new/estab patient 60 min Ivan Latrell [facility] Start: 06-24-2022 End: 06-24-2022 Emergency department patient visit Merissa Hernandez Facility: Start: 06-24-2022 End: 06-24-2022 Emergency department patient visit Janene Jonesangiegabo Work Phone: [facility] Work Phone: Start: 06-08-2022 End: 06-09-2022 ambulatory ELECTRONIC DEVICE MONITOR JANENE AICTimmyHOLZ Facility:[facility] Start: 05-29-2022 End: 05-30-2022 ambulatory ELECTRONIC DEVICE MONITOR JANENE AICHHOLZ Facility:[facility] Start: 05-13-2022 ambulatory ELECTRONIC DEVICE MONITOR JANENE AICHHOLZ Facil ity:[facility] Start: 05-12-2022 End: 05-12-2022 ambulatory Christian Mckenzie Other [facility] Other Start: 05-12-2022 Office outpatient vi sit 15 minutes Christian Mckenzie [facility] Start: 04-25-2022 End: 04-25-2022 ambulatory Donaldaurelia Bubba Other [facility] Other Start: 04-25-2022 Office outpatient ne w 30 minutes Donaldaurelia Tias [facility] [place] Start: 03-29-2022 End: 03-30-2022 ambulatory ELECTRONIC DEVICE MONITOR JANENE WILFREDOZ Facility:[facility] Start: 03-23-2022 End: 03-24-2022 ambulatory ELECTRONIC DEVICE MONITOR JANENE AICTimmyHOLZ Facility:[facility] Start: 02-19-2022 End: 02-19-2022 ambulatory ELECTRONIC DEVICE MONITOR JANENE KARENHOLZ Facility:[facility] Start: 02-16-2022 End: 02-16-[address] MYRIAM PERRIN . Facility:[facility] Start: 02-15-2022 ambulatory ELECTRONIC DEVICE MONITOR JANENE MATTY Facil ity:[facility] Start: 01-25-2022 End: 01-25-2022 Patient encounter procedure Janene Lew Work Phone: [facility] Start: 01-25-2022 End: 01-25-2022 ambulatory Janene Lew Work Phone: [facility] Work Phone: Start: 01-25-2022 Office outpatient vi sit 25 minutes Emma Boliv[facility] Start: 01-25-2022 End: 01-26-2022 ambulatory ELECTRONIC DEVICE MONITOR JANENE KARENHOLZ Facility:[facility] Start: 01-23-2022 End: 01-24-2022 ambulatory ELECTRONIC DEVICE MONITOR JANENE AICTimmyHOLZ Facility:[facility] Start: 01-12-2022 End: 01-13-2022 ambulatory ELECTRONIC DEVICE MONITOR JANENE KARENHOLZ Facility:[facility] Start: 12-21-2021 End: 12-22-2021 ambulatory ELECTRONIC DEVICE MONITOR JANENE AICTimmyHOLZ Facility:[facility] Start: 12-06-2021 End: 12-06-2021 ambulatory Christian Mckenzie Other [facility] Other Start: 12-06-2021 Office outpatient vi sit 15 minutes Christian Mckenzie [facility] Start: 11-30-2021 End: 11-30-2021 ambulatory ELECTRONIC DEVICE MONITOR JANENE LEW Facility:[facility] Start: 11-28-2021 End: 11-29-2021 ambulatory ELECTRONIC DEVICE MONITOR JANENE LEW Facility:[facility] Start: 11-14-2021 End: 11-14-2021 ambulatory Janene Lew Work Phone: [facility] Work Phone: Start: 11-14-2021 End: 11-14-2021 Discharged Recurring Janene Lew Work Phone: [facility] [place] Start: 11-10-2021 End: 11-10-2021 ambulatory Christian Mckenzie Other [facility] Other Start: 11-10-2021 Postop follow up vis it related to original px Christian Mckenzie [facility] Start: 10-28-2021 End: 10-29-2021 ambulatory ELECTRONIC DEVICE MONITOR JANENE LEW Facility:[facility] Start: 10-02-2021 End: 10-02-2021 ambulatory ELECTRONIC DEVICE MONITOR JANENE LEW Facility:[facility] Start: 09-29-2021 End: 09-29-2021 ambulatory Christian Mckenzie Other [facility] Other Start: 09-29-2021 Postop follow up vis it related to original px Christian Mckenzie [facility] Start: 08-30-2021 End: 08-30-2021 ambulatory Christian Mckenzie Other [facility] Other Start: 08-30-2021 Postop follow up vis it related to original px Christian Mckenzie [facility] Start: 08-12-2021 Admission to same da y surgery center Christian Mckenzie [facility] Start: 08-12-2021 End: 08-12-2021 ambulatory Christian Mckenzie Other [facility] Other Start: 08-23-2018 End: 08-25-2018 Evaluation and management of inpatient Peng Valles Facility:[facility] Procedures Date Procedure Procedure Detail Performing Clinician Start: 08-23-2018 FLUOROSCOPY OF MULTI PLE CORONARY ARTERIES USING OTH CONTRAST EHAB A [place] History of percutane ous transluminal coronary angioplasty History of PTCA Janene Lew Work Phone: Plan of Treatment Date Care Activity Detail Author Patient Education Radiculopathy (DC) [facility] Work Phone: Patient referral [facility] Work Phone: Immunizations Immunization Date Immunization Notes Care Provider Fa cility 05-17-2021 COVID-19 mRNA, Comirnaty (Pfizer) Janene Lew Work Phone: 09-06-2020 COVID-19 mRNA, Comirnaty (Pfizer) Janene Lew Work Phone: 08-16-2020 COVID-19 mRNA, Comirnaty (Pfizer) Janene Lew Work Phone: 01-31-2019 influenza, injectabl e, quadrivalent, contains preservative Christian Mckenzie Other [facility] Other 03-15-2018 influenza, injectabl e, quadrivalent, contains preservative Christian Mckenzie Other [facility] Other Payers Date Payer Category Payer Medicaid [id number] 2022 Self-pay [id number] 2022 Medicaid [id number] 2. [id number] 2022 Private Health Insurance [id number] 2.16.840.1.491800.19 2022 Private Health Insurance 2022 Unknown 2010 Self-pay [id number] 1970 Unknown [id number] 2.16.8 40.1.132434.3.579.2.647 1970 Unknown [id number] 2.16.84 0.1.306462.3.579.2.593 1970 Unknown [id number] 2.16.84 0.1.598872.3.579.2.593 1970 Unknown [id number] 2.16.84 0.1.222597.3.579.2.593 1970 Unknown [id number] 2.16.84 0.1.640099.3.579.2.593 1970 Unknown [id number] 2.16.84 0.1.658463.3.579.2.593 1970 Unknown [id number] 2.16.84 0.1.257485.3.579.2.593 1970 Unknown [id number] 2.16.84 0.1.016830.3.579.2.593 1970 Unknown [id number] 2.16.84 0.1.181042.3.579.2.593 1970 Unknown [id number] 2.16.84 0.1.480680.3.579.2.593 1970 Unknown [id number] 2.16.84 0.1.525912.3.579.2.593 1970 Unknown [id number] 2.16.84 0.1.615494.3.579.2.593 1970 Unknown [id number] 2.16.84 0.1.444248.3.579.2.593 1970 Unknown [id number] 2.16.84 0.1.481340.3.579.2.593 1970 Unknown [id number] 2.16.84 0.1.210822.3.579.2.593 1970 Unknown [id number] 2.16.84 0.1.146902.3.579.2.593 1970 Unknown [id number] 2.16.84 0.1.004152.3.579.2.593 1970 Unknown [id number] 2.16.84 0.1.947498.3.579.2.593 1970 Unknown [id number] 2.16. 840.1.455638.3.579.2.196 1970 Unknown [id number] 2.16. 840.1.843236.3.579.2.196 1970 Unknown [id number] 2.16.84 0.1.764168.3.579.2.1259 1959 Private Health Insurance [id number] 2.16.840.1.271695.19 1959 Unknown [id number] 2.1 6.840.1.060579.19 Unknown [id number] 2.16.8 40.1.651688.3.579.2.531 Unknown [id number] 2.16.8 40.1.318859.3.579.2.531 Social History Date Type Detail Facility Unknown if ever smoked [facility] Other Sex Assigned At Sex Assigned At Bir th [facility] Other Start: 08-12-2021 End: 06-24-2022 Tobacco smoking status NHIS Never smoked tobacco (finding) Start: 1970 Sex Assigned At Female F [facility] Clinical Notes 08-30-2021 to 03-14-2023 Note Date & Type Note Facility 03-14-2023 Note [facility] Cardiology Clinic Note Chief Complaint: Patient here for 3 mo follow up CAD, hypertension, and diastolic heart failure. She was switched from lisinopril to Entresto at last visit in Nov 2022 by Jonathan Arias CNP. Spironolactone was also added. BMP done 12/13/2022. She has been off work for 3 months and hasn't had much LE edema so only taking lasix once a day. She returns to work next week and wants to know if she can take it twice daily, but is worried about it affecting her potassium. Says she had a syncopal episode a few weeks ago. Doesn't know if it was from her dizziness or muscle relaxer she says. C/o SOB w/wo exertion. Denies chest pain and palpitations. Went to [facility] recently and had to sit down in the store for awhile to catch her breath. HPI: Sherly Humphreys is a 52 y.o. female With a history of coronary artery disease, heart failure with preserved ejection fraction. HPI as above Cardiology ROS: Review of Systems Cardiovascular: Positive for dyspnea on exertion and syncope. Respiratory: Positive for shortness of breath. Neurological: Positive for dizziness and light-headedness. All other systems reviewed and are negative. Past Medical History She has no past medical history on file. Surgical History She has no past surgical history on file. Social History She reports that she has never smoked. She has never used smokeless tobacco. She reports that she does not currently use alcohol. Drug use questions deferred to the physician. Family History No family history on file. Allergies Cephalexin, Penicillins, Phenergan plain, Prochlorperazine, Sulfamethoxazole, Doxycycline calcium, Empagliflozin, Esomeprazole magnesium, Omeprazole, Pantoprazole, Promethazine, and Sulfamethoxazole-trimethoprim Medications Current Outpatient Medications: amLODIPine (Norvasc) 5 mg tablet, Take 10 mg by mouth in the morning., Disp: , Rfl: aspirin 81 mg chewable tablet, CHEW AND SWALLOW 1 TABLET BY MOUTH ONCE DAILY, Disp: , Rfl: atorvastatin (Lipitor) 80 mg tablet, Take 1 tablet (80 mg) by mouth in the morning., Disp: 90 tablet, Rfl: 3 buPROPion XL (Wellbutrin XL) 300 mg 24 hr tablet, Take 300 mg by mouth in the morning., Disp: , Rfl: busPIRone (Buspar) 30 mg tablet, Take 20 mg by mouth in the morning and at bedtime., Disp: , Rfl: cariprazine HCl (VRAYLAR ORAL), Take 6 mg by mouth in the morning., Disp: , Rfl: cetirizine 10 mg capsule, Take by mouth in the morning., Disp: , Rfl: cholecalciferol (Vitamin D-3) 1,250 mcg (50,000 unit) capsule, Take 1 capsule every week by oral route for 28 days., Disp: , Rfl: fenofibrate (Tricor) 145 mg tablet, Take 1 tablet by mouth in the morning., Disp: , Rfl: ferrous sulfate 325 (65 Fe) MG tablet, Take 65 mg by mouth with breakfast., Disp: , Rfl: furosemide (Lasix) 20 mg tablet, START WITH 1 TABLET BY MOUTH DAILY, INCREASE TO 2 TABLETS DAILY DIRECTED IF WORSENING SWELLING IN LEGS, Disp: , Rfl: gabapentin (Neurontin) 300 mg capsule, Take 300 mg by mouth. Pt states she Takes two a daily, Disp: , Rfl: glipiZIDE (Glucotrol) 5 mg tablet, Take 5 mg by mouth in the morning., Disp: , Rfl: isosorbide mononitrate ER (Imdur) 30 mg 24 hr tablet, Take 1 tablet (30 mg) by mouth in the morning., Disp: 90 tablet, Rfl: 3 metoprolol succinate XL (Toprol-XL) 25 mg 24 hr tablet, Take 0.5 tablets (12.5 mg) by mouth in the morning., Disp: 45 tablet, Rfl: 3 pioglitazone (Actos) 45 mg tablet, , Disp: , Rfl: sacubitril-valsartan (Entresto) 49-51 mg tablet, Take 1 tablet by mouth in the morning and at bedtime., Disp: 180 tablet, Rfl: 3 spironolactone (Aldactone) 25 mg tablet, Take 1 tablet (25 mg) by mouth in the morning., Disp: 90 tablet, Rfl: 3 Last Recorded Vitals BP 122/83 (BP Location: Left wrist, Patient Position: Standing) Pulse 68 Ht 1.651 m (5' 5 ) Wt (!) 141 kg (311 lb) SpO2 99% BMI 51.75 kg/m??? Physical Examination: GENERAL: alert and oriented x3, well developed, in no acute distress. HEAD: atraumatic, normocephalic. EYES: GREG, EOMI. NECK: trachea midline, no JVD present, no carotid bruits present. CARDIAC: S1, S2 present. RRR. No murmur, rubs, or gallops. RESPIRATORY: CTAB, no increased effort of breathing, no rales, rhonchi, or wheezing. ABDOMEN: soft, nontender, nondistended. EXTREMITIES: no lower extremity edema, peripheral pulses are 2+ bilaterally. No rash/skin discoloration present. NEURO: strength/sensation equal and symmetric in bilateral upper and lower extremities. PSYCH: appropriate mood, affect, and judgement. Imaging and other tests Echocardiogram: 11/27/2022 Left ventricle: Moderate dilatation. Mild concentric left ventricular hypertrophy. Normal systolic function. Estimated ventricular ejection fraction is 65%. Grade 2 diastolic dysfunction. Left atrium: Severe dilatation Right atrium: Mild dilatation Right ventricle: Mild dilatation normal right ventricular systo (more content not included)... [facility] 11-30-2022 Note Cardiology Clinic No te Subjective Sherly Humphreys is a 51 y.o. year old female patient with past medical history of coronary artery disease, diastolic heart failure, type 2 diabetes mellitus, hypertension, and hyperlipidemia seen in follow-up. Patient Active Problem List Diagnosis Abdominal pain, other specified site Angina pectoris (CMS/HCC) Back pain Chest pain Hip pain, bilateral Anxiety Arthritis Cardiovascular stress test abnormal Chronic diastolic heart failure (CMS/HCC) Coronary arteriosclerosis in viejas artery Coronary atherosclerosis Dehydration Bipolar disorder (CMS/HCC) Depression Diabetes mellitus (CMS/HCC) No family history on file. Social History Tobacco Use Smoking status: Never Smokeless tobacco: Never Substance Use Topics Alcohol use: Not Currently Drug use: Defer HPI 50 yo female with past medical history of diabetes mellitus type 2, hypertension, obesity, early CAD with PCI done at the age of [address] ALVARES. Update: 09/29/2022 Developed lower extremity edema about two months ago She has stable dyspnea on exertion She was recommended ED presentation by PCP about a month ago She had a CXR and labs that were normal Thinks she may have had an echo as well BP has been running high She reports stage 3 CKD and follows with nephrology Update: 11/30/2022 She feels tired, has been started on iron supplements by nephrology LE has improved, still has some swelling at the end of the day BP at home has been running in the 160s systolic Stable dyspnea on exertion No chest pain or palpitations Review of Systems Cardiovascular: Positive for dyspnea on exertion, leg swelling and paroxysmal nocturnal dyspnea. Negative for chest pain, claudication, irregular heartbeat, near-syncope, orthopnea, palpitations and syncope. Objective Visit Vitals BP 110/66 (BP Location: Right arm, Patient Position: Sitting, BP Cuff Size: Adult) Pulse 59 Resp 13 Ht 1.651 m (5' 5 ) Wt (!) 137 kg (302 lb) SpO2 98% BMI 50.26 kg/m??? Smoking Status Never BSA 2.51 m??? Physical Exam General: Awake, alert, good spirits. NAD Pulm: Breath sounds clear to ascultation bilaterally with no wheeze, crackles or rhonchi Cards: Regular rate and rhythm, S1, S2. No S3 or S4 gallop. Murmur: none Abd: Soft, Nontender, physiologic bowel sounds are present Extr: Lower extremity edema: Non Skin: warm, dry, well perfused Neuro: A&Ox3, No gross deficits Allergies Allergies Allergen Reactions Cephalexin Other and Rash Penicillins Other and Rash Phenergan Plain seizures Prochlorperazine Other seizures Sulfamethoxazole Other and Rash Doxycycline Calcium Other Empagliflozin Esomeprazole Magnesium Other Omeprazole Nausea Only Pantoprazole Nausea Only Promethazine Other Sulfamethoxazole-Trimethoprim Other and Rash Medications Current Outpatient Medications: amLODIPine (Norvasc) 5 mg tablet, Take 10 mg by mouth in the morning., Disp: , Rfl: aspirin 81 mg chewable tablet, CHEW AND SWALLOW 1 TABLET BY MOUTH ONCE DAILY, Disp: , Rfl: atorvastatin (Lipitor) 80 mg tablet, Take 1 tablet (80 mg) by mouth in the morning., Disp: 90 tablet, Rfl: 3 buPROPion XL (Wellbutrin XL) 300 mg 24 hr tablet, Take 300 mg by mouth in the morning., Disp: , Rfl: busPIRone (Buspar) 30 mg tablet, Take 20 mg by mouth in the morning and at bedtime., Disp: , Rfl: cariprazine HCl (VRAYLAR ORAL), Take 6 mg by mouth in the morning., Disp: , Rfl: cetirizine 10 mg capsule, Take by mouth in the morning., Disp: , Rfl: cholecalciferol (Vitamin D-3) 1,250 mcg (50,000 unit) capsule, Take 1 capsule every week by oral route for 28 days., Disp: , Rfl: fenofibrate (Tricor) 145 mg tablet, Take 1 tablet by mouth in the morning., Disp: , Rfl: ferrous sulfate 325 (65 Fe) MG tablet, Take 65 mg by mouth with breakfast., Disp: , Rfl: furosemide (Lasix) 20 mg tablet, START WITH 1 TABLET BY MOUTH DAILY, INCREASE TO 2 TABLETS DAILY DIRECTED IF WORSENING SWELLING IN LEGS, Disp: , Rfl: gabapentin (Neurontin) 300 mg capsule, Take 300 mg by mouth. Pt states she Takes two a daily, Disp: , Rfl: glipiZIDE (Glucotrol) 5 mg tablet, Take 5 mg by mouth in the morning., Disp: , Rfl: isosorbide mononitrate ER (Imdur) 30 mg 24 hr tablet, Take 1 tablet (30 mg) by mouth in the morning., Disp: 90 tablet, Rfl: 3 metoprolol succinate XL (Toprol-XL) 25 mg 24 hr tablet, Take 0.5 tablets (12.5 mg) by mouth in the morning., Disp: 45 tablet, Rfl: 0 pioglitazone (Actos) 45 mg tablet, , Disp: , Rfl: sacubitril-valsartan (Entresto) 49-51 mg tablet, Take 1 tablet by mouth in the morning and at bedtime., Disp: 180 tablet, Rfl: 3 spironolactone (Aldactone) 25 mg tablet, Take 1 tablet (25 mg) by mouth in the morning., Disp: 90 tablet, Rfl: 3 Recent Labs 11/25/2022 Total cholesterol 144, triglycerides 153, HDL 44, LDL 70 09/07/2022 Sodium 144, potassium 3.8, chloride 107, BUN 19, serum creati (more content not included)... [facility] 09-29-2022 Note Cardiology Clinic No te Subjective Sherly Humphreys is a 51 y.o. year old female patient with past medical history of coronary artery disease, diastolic heart failure, type 2 diabetes mellitus, hypertension, and hyperlipidemia seen in follow-up. Patient Active Problem List Diagnosis Abdominal pain, other specified site Angina pectoris (CMS/HCC) Back pain Chest pain Hip pain, bilateral Anxiety Arthritis Cardiovascular stress test abnormal Chronic diastolic heart failure (CMS/HCC) Coronary arteriosclerosis in [place] artery Coronary atherosclerosis Dehydration Bipolar disorder (CMS/HCC) Depression Diabetes mellitus (CMS/HCC) No family history on file. HPI 50 yo female with past medical history of diabetes mellitus type 2, hypertension, obesity, early CAD with PCI done at the age of [address] ALVARES. Update: 09/29/2022 Developed lower extremity edema about two months ago She has stable dyspnea on exertion She was recommended ED presentation by PCP about a month ago She had a CXR and labs that were normal Thinks she may have had an echo as well BP has been running high She reports stage 3 CKD and follows with nephrology Review of Systems Cardiovascular: Positive for dyspnea on exertion, leg swelling and paroxysmal nocturnal dyspnea. Negative for chest pain, claudication, irregular heartbeat, near-syncope, orthopnea, palpitations and syncope. Objective Visit Vitals BP 178/83 (BP Location: Left arm, Patient Position: Sitting) Pulse 55 Wt 134 kg (296 lb) SpO2 98% BMI 49.26 kg/m??? BSA 2.48 m??? Physical Exam General: Awake, alert, good spirits. NAD Pulm: Breath sounds clear to ascultation bilaterally with no wheeze, crackles or rhonchi Cards: Regular rate and rhythm, S1, S2. No S3 or S4 gallop. Murmur: none Abd: Soft, Nontender, physiologic bowel sounds are present Extr: Lower extremity edema: Non Skin: warm, dry, well perfused Neuro: A&Ox3, No gross deficits Allergies Allergies Allergen Reactions Cephalexin Other and Rash Penicillins Other and Rash Phenergan Plain seizures Prochlorperazine Other seizures Sulfamethoxazole Other and Rash Doxycycline Calcium Other Empagliflozin Esomeprazole Magnesium Other Omeprazole Nausea Only Pantoprazole Nausea Only Promethazine Other Sulfamethoxazole-Trimethoprim Other and Rash Medications Current Outpatient Medications: amLODIPine (Norvasc) 5 mg tablet, Take 10 mg by mouth in the morning., Disp: , Rfl: aspirin 81 mg chewable tablet, CHEW AND SWALLOW 1 TABLET BY MOUTH ONCE DAILY, Disp: , Rfl: atorvastatin (Lipitor) 80 mg tablet, Take 1 tablet (80 mg) by mouth in the morning., Disp: 90 tablet, Rfl: 0 buPROPion XL (Wellbutrin XL) 300 mg 24 hr tablet, Take 300 mg by mouth in the morning., Disp: , Rfl: busPIRone (Buspar) 30 mg tablet, Take 30 mg by mouth in the morning and at bedtime., Disp: , Rfl: cariprazine HCl (VRAYLAR ORAL), Take by mouth., Disp: , Rfl: cetirizine 10 mg capsule, Take by mouth in the morning., Disp: , Rfl: cholecalciferol (Vitamin D-3) 1,250 mcg (50,000 unit) capsule, Take 1 capsule every week by oral route for 28 days., Disp: , Rfl: fenofibrate (Tricor) 145 mg tablet, Take 1 tablet by mouth in the morning., Disp: , Rfl: furosemide (Lasix) 20 mg tablet, START WITH 1 TABLET BY MOUTH DAILY, INCREASE TO 2 TABLETS DAILY DIRECTED IF WORSENING SWELLING IN LEGS, Disp: , Rfl: gabapentin (Neurontin) 300 mg capsule, Take 300 mg by mouth. Pt states she Takes two a daily, Disp: , Rfl: glipiZIDE (Glucotrol) 5 mg tablet, Take 5 mg by mouth in the morning., Disp: , Rfl: isosorbide mononitrate ER (Imdur) 30 mg 24 hr tablet, Take 1 tablet by mouth once daily, Disp: 30 tablet, Rfl: 0 lisinopril 40 mg tablet, , Disp: , Rfl: magnesium oxide (MagOx) 400 mg (241.3 mg magnesium) tablet, Take 400 mg by mouth in the morning., Disp: , Rfl: metoprolol succinate XL (Toprol-XL) 25 mg 24 hr tablet, Take 0.5 tablets (12.5 mg) by mouth in the morning., Disp: 45 tablet, Rfl: 0 pioglitazone (Actos) 45 mg tablet, , Disp: , Rfl: hydroCHLOROthiazide (HYDRODiuril) 25 mg tablet, Take 1 tablet (25 mg) by mouth in the morning., Disp: 30 tablet, Rfl: 1 Recent Labs 09/07/2022 Sodium 144, potassium 3.8, chloride 107, BUN 19, serum creatinine 1.18, estimated GFR 48% WBC 4.9, hemoglobin 11.6, hematocrit 37.2, platelets 272 NT proBNP 391 Imaging and other tests Echocardiogram: 01/28/2021 Normal ventricular systolic function. LVEF is 55% Aortic valve opens well No pericardial effusion Cardiac catheterization 06/06/2021 performed by Rojas Evans DO 30 to 50% disease of the mid LAD proximal to a widely patent LAD stent. Otherwise normal coronary arteries and normal left ventricular function. Elevated LVEDP. Impression: 1. Mild to moderate mid LAD disease proximal to existing stent on the order of 40 to 50% 2. Widely patent mid LAD stent 3. Otherwise normal coronary (more content not included)... [facility] 09-29-2022 Note Review of Systems Cardiovascular: Positive for leg swelling. Respiratory: Positive for shortness of breath. [facility] 08-14-2022 Evaluation note Encounter Date Diagnosis Assessment Notes August, Sacroiliitis (ICD-10 - M46.1) 51 year old female here for follow up status post right T12 and L1 transforaminal epidural steroid injection under fluoroscopic guidance. Patient reports 100% relief of her lower extremity pain. She complains of low back pain. Anatomy of spine discussed in detail with patient in regards to patients condition. Patient is a candidate for a bilateral sacroiliac joint injection under fluoroscopic guidance. Risks and benefits of procedure explained to patient; patient verbalizes understanding. August, Lumbosacral spondylosis (ICD-10 - M47.817) In the future if the pain persists, we can consider proceeding with a lumbar facet MBB follwoed by a RFA if applicable under fluoroscopic guidance. August, Lumbar radiculopathy (ICD-10 - M54.16) Patient reports 100% relief of lower extremity pain following procedure August, Other chronic pain (ICD-10 - G89.29) Proceed with current treatment plan [facility] Other 03-20-2023 Evaluation note* Encounter Date Diagnosis Assessment Notes Treatment Notes Treatment Clinical Notes Jun, Lumbar radiculopathy (ICD-10 - M54.16) 51 year old female presents with complaints of low back pain with radiation into the right groin and to the anterior and interior aspect of the right thigh. She states this pain has been present since April of this year and has been a constant sharp pain. Back pain orginally started in 2014 after a fall resulting in ruptured discs in multiple places in her spine. She notes prior back surgery in 2015 and July 2020. She also notes prior injections with Dr Kelley many years ago. She feels pain is negatively impacting her daily activities and sleeping pattern. Prior to examining the patient, I reviewed progress notes from her referring physician Dr Mckenzie. I also independently reviewed previous imaging of the lumbar spine which shows a disc bulge at the T12-L1 level. Anatomy of spine discussed in detail with patient in regards to patients condition. Patient is a candidate for a right T12, L1 transforaminal epidural steroid injection under fluoroscopic guidance. Risks and benefits of procedure explained to patient; patient verbalizes understanding. Jun, Mid back pain (ICD-10 - M54.9) Proceed with current treatment plan Jun, Sacroiliitis (ICD-10 - M46.1) In the future if the pain persists, we can consider proceeding with a right sacroiliac joint injection under fluoroscopic guidance Jun, Lumbosacral spondylosis (ICD-10 - M47.817) In the future if the pain persists, we can consider proceeding with a lumbar facet MBB follwoed by a RFA if applicable under fluoroscopic guidance. Jun, Other chronic pain (ICD-10 - G89.29) Proceed with current treatment plan Jun, Other Medical deci dell making shows a new problem to me with further workup planned or suggested with the potential for extensive treatment options that were considered with the most applicable given this patient's situation as noted above. Treatment options considered include a combination of physical therapy approaches, pharmacologic management, and interventional procedures. Those most applicable to the patient were discussed at this time. Risk of complications and/or morbidity and mortality is high given that acute and chronic pain poses a threat to life and bodily function if undertreated, poorly treated or with failure to maintain adequate treatment and timely followup. Given the serious and fluctuating nature of pain with extensive consideration for whenever pain changes, there always remains the possibility of prolonged functional impairment requiring constant patient reassessment and high-level medical decision making. The amount and complexity of data reviewed is high given that patient labs, radiology reports, and other test were obtained, reviewed and summarized as applicable from the physician portal and/or outside medical records. Pertinent positive and negative findings were considered in medical decision-making. [facility] Other 03-11-2023 Hospital Discharge instructions Additional Instructions Take the Medrol pack as prescribed until completed Carefully watch her diet and blood sugar while taking this as this can elevate your blood sugar 1 oxycodone every 6 hours for severe pain Use your tizanidine 3 times a day as needed for pain May apply 1-2 lidocaine patches over sores areas daily May use ice warm moist heat whichever helps the best Gentle stretching Follow-up with your family doctor for recheck or Dr. Mckenzie Return to the ER for more severe pain weakness in your leg loss of bladder bowel control high fever or any other [facility] Work Phone: [phone] Evaluation note* Encounter Date Diagnosis Assessment Notes Treatment Notes Treatment Clinical Notes Apr, Thoracic myelopathy (ICD-10 - M47.14) Apr, Chronic right-sided lumbar radiculopathy (ICD-10 - M54.16) This is a patient well-known to me. She has had a herniated disc at T12-L1 that was operated on previously with some improvement. She presented a year or 2 ago with severe radiculopathy on that side, underwent a revision microdiscectomy and actually got somewhat better. But her main issue is she will have up to 2 or 3 weeks of whenever she moves to the side she has pain down her right flank into the groin on the right which is probably a chronic T12 or L1 radiculopathy and then weeks of symptoms that are not there at all. She has no back pain, she has no symptoms that would lead me to believe there is instability. The symptoms have been present for over 5 years, and they have been somewhat controlled with Gabapentin, which may need to be increased, but in my opinion this needs to be done by a chronic pain management doctor not a surgeon. I have reviewed the most recent MRI of the lumbar spine independently and compared to previous; there is a small disc herniation there at T12-L1 I do not believe this is surgical. Almost all of the findings are scar tissue related. I would recommend chronic pain management, possibly a dorsal column stimulator consideration, and probably manipulation of her gabapentin. I do not see a surgical lesion at this point. [facility] Other 01-10-2023 Evaluation note* Encounter Date Diagnosis Assessment Notes Treatment Notes Treatment Clinical Notes Apr, Chronic kidney disease, stage 3b (ICD-10 - N18.32) 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 Serum creatinine fluctuate last year from episodes of diarrhea. Baseline creatinine seems around 1.2 to 1.4 mg deciliter. UA last year showed no proteinuria and no hematuria. Patient is already on lisinopril Keep hemoglobin A1c less than 7% and blood pressure below 130/80 to preserve kidney function. I asked the patient to avoid NSAIDs for pain control Encouraged weight loss. I'ii check renal ultrasound along with calcium, phosphorus and PTH. I will follow-up with the patient in 4 months Apr, Hypertensive nephropathy (ICD-10 - I12.9) Patient is on multiple blood pressure medications. Blood pressure target below 130/80. Continue same blood pressure medications. I asked the patient to monitor blood pressure at home and to follow low-salt diet. Apr, Diabetic nephropathy associated with type 2 diabetes mellitus (ICD-10 - E11.21) Follows with her PCP for diabetes control. Patient on oral medications pioglitazone and glipizide. I explained the patient the necessity of controlling diabetes to preserve kidney function Apr, Localized edema (ICD-10 - R60.0) Patient is currently taking Lasix 20 mg once daily up to 40 mg as needed. Advised the patient to follow low-salt diet Apr, Hyperlipidemia, unspecified hyperlipidemia type (ICD-10 - E78.5) Patient is on statin and fenofibrate follows with her PCP Apr, Morbid obesity (ICD-10 - E66.01) Encouraged weight loss [facility] Other 10-12-2022 Evaluation note* Encounter Date Diagnosis Assessment Notes Treatment Notes Treatment Clinical Notes Jan, Obstructive sleep apnea (ICD-10 - G47.33) Fortunately, patient is using and benefiting from treatment. Download was reviewed with patient. Her AHI is well controlled, however she does have a significant mask leak with her current mask. Mask styles were reviewed at great length and it was advised that she go forward with a mask fitting. She would like to try a nasal mask with a chin strap. A prescription was sent to the [facility] for new supplies throughout the year, as well as a mask fitting. She was encouraged to continue to use her machine nightly throughout the entire night as this does provide clinical benefit. She will follow-up in sleep clinic in 1 year or sooner pending results of download. Jan, Essential hypertension (ICD-10 - I10) Positive effects of controlled URIEL and hypertension were reviewed. Control of sleep apnea will frequently have a positive effect on blood pressure control, and may additionally reduce blood pressure lability. Blood pressure control frequently worsens with uncontrolled sleep apnea, and improves with effective utilization of treatment. Jan, GERD (gastroesophageal reflux disease) (ICD-10 - K21.9) Nocturnal reflux is common with sleep apnea, as negative intrathoracic pressures during apnea can result in inadvertant esophageal reflux. 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 we will continue to monitor Jan, Morning headache (ICD-10 - R51.9) headaches of all types, but particularly migraine headaches, are sensitive to sleep quality and quantity. Many patients with headache find improvements in severity and frequency after sleep problems are resolved. Jan, Other Call if any questions or problems. Patient is advised to work on healthy diet choices and appropriate servings, weight control, regular exercise as directed, and reduce fat intake. Use machine regularly, and keep up with mask changes as needed. Call if problems with mask toleration, increased sleepiness, or poor response to treatment. . [facility] Other 08-23-2022 Evaluation note* Encounter Date Diagnosis Assessment Notes Treatment Notes Treatment Clinical Notes Nov, Other chronic pain (ICD-10 - G89.29) Despite other medical maladies the patient is doing very well on gabapentin 1200 mg p.o. twice daily. This has been a chronic problem for her; she has gotten better than she was preoperatively but just not as good as she needs to be. She is happy with this progress I will see her on an as-needed basis. The gabapentin should be able to be written by family physician when refills are needed. Nov, Herniation of thoracolumbar intervertebral disc (ICD-10 - M51.25) [facility] Other 07-28-2022 Evaluation note* Encounter Date Diagnosis Assessment Notes Treatment Notes Treatment Clinical Notes Oct, Other chronic pain (ICD-10 - G89.29) Oct, Herniation of thoracolumbar intervertebral disc (ICD-10 - M51.25) This patient no longer has burning and severe pain in her thigh which was relative to the recurrent disc herniation. She has bilateral chronic low back pain which she had prior to surgery and is again bothering her. I need to clear the air and be sure she does not have a recurrent disc herniation or other spinal canal pathology I am sending her to physical therapy; depending on the outcome I will consider ordering a new MRI with and without gadolinium of the lumbar spine. I also will increase her gabapentin stepwise to a level of 1200 mg p.o. twice daily. The patient fully understands this plan, she is in agreement. She would like to try to go back to work and I sent her back full duty as of November 21. I will see her back in a month for a med check and PT follow up [facility] Other 06-16-2022 Evaluation note* Encounter Date Diagnosis Assessment Notes Treatment Notes Treatment Clinical Notes Sep, Herniation of thoracolumbar intervertebral disc (ICD-10 - M51.25) The patient has some posterior buttock pain that has been present for some time possibly even during the first disc herniation. This may not get better with surgery. I think it is important to note that the gabapentin I gave her at bedtime has helped; we will now use gabapentin 1 or 2 in the morning also, and 1 or 2 at night. I will see the patient back in 6 weeks and talk about work at that time. 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 She was directly admitted to the hospital underwent surgical decompression and is feeling much better given the length of time the symptoms were present and the severity of them. I think the patient is right where she should be in recovery phase. I have asked her to take a small dose of steroids. We will see her back in about a month at which time we will talk about going back to work. Overall she is making a good recovery [facility] Other evaluation noteNo InformationNort [facility] Other evaluation noteNo assessment information available [facility] Work Phone: [facility] general Narrative - Reported* Type Description Date Medical History hypertension Medical History Dyslipidemia (high LDL; low HDL) Medical History MRSA (methicillin re sistant staph aureus) culture positive Medical History Cervicalgia Medical History depression with Bipolar II Medical History URIEL Surgical History Neck Fusion 2016 Surgical History Back Surgery 2016 Surgical History left Rotator Cuff 2015 Surgical History Total Hysterectomy 2010 Surgical History Heart Stent 2010 Surgical History Tonsilectomy Teenager Hospitalization History See Above [facility] Other Histeky general Narrative - Reported* Type Description Date Medical History hypertension Medical History Dyslipidemia (high LDL; low HDL) Medical History MRSA (methicillin re sistant staph aureus) culture positive Medical History Cervicalgia Medical History depression with Bipolar II Medical History URIEL Surgical History Neck Fusion 2016 Surgical History Back Surgery 2016 Surgical History left Rotator Cuff 2015 Surgical History Total Hysterectomy 2010 Surgical History Heart Stent 2009 Surgical History Tonsilectomy Teenager Surgical History LOW BACK SURGERY 07/2021 Hospitalization History See Above [facility] Other Summary Purpose Family History No Family History Records Found Relationship Condition Age at Onset Recorded Date/T antony Not Specified Malignant neoplasm of head and neck Unkn own Diabetes mellitus Unknown Myocardial infarction Unknown sister Diabetes mellitus Unknown father Myocardial infarction Unknown brother Myocardial infarction Unknown Advance Directives No Advanced Directives Records Found Advance Directive Response Recorded Date/ Time Advance Directives No March 19, 2018 5:43pm Advance Directive Response Recorded Date/ Time Advance Directives No March 19, 2018 4:43pm Hospital Course Note MR#: [id number] [facility] Pt. Name: Sherly Humphreys Admitted: 08/23/2018 Discharged: 08/25/2018 Date of : 1970 Physician: Peng Valles MD DISCHARGE SUMMARY DISCHARGING PHYSICIAN: Peng Valles M.D. CONSULTS: Cardiology. PROCEDURES: Cardiac catheterization without any intervention. PRIMARY DIAGNOSES: 1. Noncardiac chest pain. 2. Hypertensive urgency. 3. Coronary artery disease, status post PCI in 2009. 4. Hyperlipidemia. 5. Diabetes mellitus type 2, not on insulin. 6. Obstructive sleep apnea. 7. Bipolar disorder. 8. Right hip pain. 9. Morbid obesity. HISTORY OF PRESENT ILLNESS/BRIEF COURSE: A 47-year-old female with past medical history of CAD status post PCI in 2009, presenting with chest pain and pressure for several weeks. Patient stated that her symptoms have been ongoing, but were mild in nature. She says she gets a substernal chest pressure that limited her ability to breathe without any palpitations or radiation to her neck or jaw or (more content not included)... Reason for Referral Reason NO SHOW Evaluate a nd Treat L1 Radic and Thoracic Pain Diagnosis 1 Thoracic myelopathy (M47.14) Referral Organization [facility] Referring Provider First Name Christian Referring Provider Last Name Alfonso Referring Provider Specialty Neurologica l Surgery Referred Organization [facility]agemen t Referred Provider Ivan Sams Referred Address [address],[place] [address] ,[place], [place],[address] Referred Provider Specialty Pain Medicin e Referral Priority Routine General Notes Laney Nini 023 12:45:54 PM >Received today and sent P2P Kristal Veloz 05/16/2022 02:01:28 PM >pt has been [facility]01[facility]37 AM >Patient was a no show to [facility] 11:23:40 AM >Telephone encounter was sent Reason Evaluate and Treat B ilateral Low Back Pain Diagnosis 1 Low back pain (M54.5 ) Referral Organization [facility] Referring Provider First Name Christian Referring Provider Last Name Alfonso Referring Provider Specialty Neurologica l Surgery Referred Organization Unknown Facility Referred Provider Specialty Physical The rapist Referral Priority Routine Chief Complaint and Reason for Visit Chief Complaint low back pain Chief Complaint low back pain Sleep apnea 31-90 day follow up Chief Complaint rt leg pain Additional Source Comments INFORMATION SOURCE (unrecogn ized section and content) DATE CREATED AUTHOR 11/22/2018 [facility] DATE CREATED AUTHOR AUTHOR'S ORGANIZ ATION 09/22/2022 [facility] DATE CREATED AUTHOR AUTHOR'S ORGANIZ ATION 02/22/2023 [facility] DATE CREATED AUTHOR AUTHOR'S ORGANIZ ATION 03/16/2023 [facility] DATE CREATED AUTHOR AUTHOR'S ORGANIZ ATION 04/28/2023 [facility] DATE CREATED AUTHOR AUTHOR'S ORGANIZ ATION 05/04/2023 [facility] EPIC REASON FOR VISIT (unrecogniz ed section and content) [id number] WK PO DISC ECTOMY6 wk po Discectomy3 mo po Discectomy1 mo po med checkNo InformationRENAL CKD 3increased pain right side lower hipREF BY DR MCKENZIE FOR L1 RADICULOPATHY AND THORACIC PAINFOLLOW UP AFTER RIGHT LTRmultiple no showsNo Information Care Teams (unrecognized sec tion and content) Team Status: Inactive Member Role Status Dates Janene Lew Primary Care Provider Active Christian Mckenzie MD Attending Provider Active Team Status: Active Member Role Status Dates Janene Lew Primary Care Provider Active Team Status: Inactive Member Role Status Dates Jaenne Lew Primary Care Provider Active Emma Bolivar NP Attending Provider Active Team Status: Inactive Member Role Status Dates Janene Lew Primary Care Provider Active Merissa Hernandez [employer] Emergency Provider Active Goals (unrecognized section and content) Goals may be documented in a n alternate section FOR RECORDS PERTAINING TO PATIENTS WHO ARE OR HAVE BEEN ENROLLED IN A CHEMICAL DEPENDENCY/SUBSTANCEABUSE PROGRAM, SOME INFORMATION MAY BE OMITTED. This clinical summary was aggregated from multiple sources. Caution should be exercised in using it in the provision of clinical care. This summary normalizes information from multiple sources, and as a consequence, information in this document may materially change the coding, format and clinical context of patient data. In addition, data may be omitted in some cases. CLINICAL DECISIONS SHOULD BE BASED ON THE PRIMARY CLINICAL RECORDS. [employer] provides no warranty or guarantee of the accuracy or completeness of information in this document.
--- NOTE | 2023-05-10 09:52 | CA_ITS ---
Patient Name: SHARLENE HUMPHREYS MR#: [id number] : 1970 Exam Date: 05/10/2023 Ordering Doctor: MRS. JONATHAN SMALL NP ECHOCARDIOGRAM REPORT PROCEDURE: CA ECHO DOPPLER COMPLETE INDICATIONS: Shortness of breath COMPARISON: None. DESCRIPTION: COMPLETE ECHOCARDIOGRAM Real-time transthoracic echocardiography with 2D, M-mode, spectral and color flow Doppler performed. QUALITY: Technical quality was good. LEFT VENTRICLE: The left ventricle is dilated. Mild concentric left ventricular hypertrophy. LV EF: Global left ventricular systolic function is normal. Calculated left ventricular ejection fraction is 58% DIASTOLIC: Grade II diastolic dysfunction. ATRIAL SEPTUM: Inadequately seen. LEFT ATRIUM: Moderate dilatation. RIGHT ATRIUM: Mild dilatation. RIGHT VENTRICLE: Mild dilatation. Normal right ventricular systolic function. TRICUSPID VALVE: Normal mobility and thickness. No stenosis with mild regurgitation. Mild pulmonary hypertension. RVSP 36mmHg MITRAL VALVE: Normal mobility and thickness. No evidence of mitral valve stenosis. There is no mitral annular calcification. Mild mitral regurgitation. AORTIC VALVE: Normal trileaflet appearance. No visible sclerosis. Normal leaflet mobility. No evidence of aortic valve stenosis. No aortic regurgitation. AORTIC ROOT: Normal diameter and appearance. PULMONIC VALVE: Normal thickness and mobility. No stenosis. Trivial regurgitation. PERICARDIUM: Anterior free space; trivial effusion versus fat pad. IVC: Collapses with inspirations. Normal size CONCLUSION: 1. Global left ventricular systolic is normal; visually estimated ejection fraction is 55 to 60% 2. The right ventricle is mildly dilated with normal systolic function 3. Mildly increased left ventricular wall thickness 4. Grade 2, moderate diastolic dysfunction 5. Biatrial enlargement 6. Mild tricuspid regurgitation 7. Mildly elevated right ventricular systolic pressure 8. Mild mitral regurgitation 9. Anterior free space; trivial effusion versus fat pad Adult Echocardiography Procedure Report Left Ventricle LVEDD (3.7 - 5.6 cm): 6.21 cm LVESD (2.2 - 4.0 cm): 3.81 cm LVIVS thickness (0.6 - 1.2 cm): 1.24 cm LVPW thickness (0.5 - 1.0 cm): 1.21 cm e': 0.07 m/s E - e': 15.23 LVOT Max Gradient: 6.81 mm[Hg] LVOT Area (cm2): 1.30 m/s Peak Velocity (LVOT): 1.30 m/s Mean Velocity (LVOT): 0.94 m/s LVOT Diameter 2.12 cm Left Ventricular Ejection Fraction: 57.67 % Left Atrium LA Volume Index (2D A2C): 45.87 ml/m2 Left Atrium Systolic Dimension: 4.23 cm Mitral Valve MV E to A Ratio: 1.11 Mitral Valve A-Wave Peak Velocity: 1.00 m/s Mitral Valve E-Wave Peak Velocity: 1.10 m/s Right Ventricle RV Internal Diastolic Dimension: 4.06 cm Aorta AO Root Diam: 3.10 cm Ascending Ao Diam: 3.17 cm Aortic Valve AoV Area (Peak Gabo): 2.43 cm2, 2.43 cm2 AoV Area (VTI): 2.39 cm2, 2.39 cm2 Peak Velocity(Antegrade Flow): 1.89 m/s Peak Gradient(Antegrade Flow): 14.26 mm[Hg] Mean Velocity(Antegrade Flow): 1.29 m/s Mean Gradient(Antegrade Flow): 7.63 mm[Hg] Velocity Time Integral: 49.45 cm Tricuspid Valve Peak Velocity (Regurgitant Flow): 2.77 m/s, 2.49 m/s, 2.86 m/s Pulmonic Valve Mean Gradient: 2.83 mm[Hg], 2.83 mm[Hg], 3.65 mm[Hg] Mean Velocity: 0.78 m/s, 0.79 m/s, 0.94 m/s Peak Velocity: 1.15 m/s Peak Gradient: 5.30 mm[Hg], 4.94 mm[Hg], 5.76 mm[Hg] Right Atrium Right Atrium Systolic Pressure: 45.10 ml, 45.10 ml Dictated by: Tk Godoy M.D. on 05/10/2023 at 14:33 Approved by: Tk Godoy M.D. on 05/10/2023 at 14:37
== END 2023-05-10 07:54 | disposition home or self-care (01) ==
PROVIDERS: PCP Nurse Practitioner; Visit Provider Nurse Practitioner Acute Care
DX: I12.9 Hypertensive chronic kidney disease with stage 1 through stage 4 chronic kidney disease, or unspecified chronic kidney disease (principal); K21.9 Gastro-esophageal reflux disease without esophagitis; E11.22 Type 2 diabetes mellitus with diabetic chronic kidney disease; N18.30 Chronic kidney disease, stage 3 unspecified; R60.0 Localized edema; E78.2 Mixed hyperlipidemia; R31.29 Other microscopic hematuria; F31.9 Bipolar disorder, unspecified; Z79.899 Other long term (current) drug therapy; R06.02 Shortness of breath; I08.1 Rheumatic disorders of both mitral and tricuspid valves
CPT/HCPCS: 36415; 80053; 80061; 80164; 81003; 82043; 82248; 82570; 83036; 85025; 93306

== ENCOUNTER 2023-05-10 08:59 | Outpatient (OUT) | payer BC, SELFPAY ==
--- OUTSIDE RECORDS SUMMARY | 2023-05-10 09:07 | XMS_ITS | CCD ---
Author Name Unknown Address [address] [place] [address] Organization [facility] Care Team Providers Care Coconut Cooker Name Role Phone Peng Valles Admitting Unavailable Peng Valles Attending Unavailable GEOVANNI MYERS Primary Care Unavailable HAMMAD LING Referring Unavailabl e CO Procedure Practitioner Unavailab TK [place] Surgeon Unavailable Christian Mckenzie Unavailable Janene Lew Primary Care Provider MD Christian Mckenzie Attending Provider ELIER Bolivar Emma Attending Provider Emma Bolivar Unavailable Halle Mac Unavailable Janene Lew Primary Care Provider [phone] STU Hernandez-LYNNE Antunez Emergency Provider Ivan Sams Unavailable AICHHOLZ, PYTHON WEB DEVELOPER JANENE Consulting Unavailable AICHHOLZ, PYTHON WEB DEVELOPER JANENE Attending Unavailable AICHHOLZ, PYTHON WEB DEVELOPER JANENE Admitting Unavailable AICHHOLZ, PYTHON WEB DEVELOPER JANENE Primary Care Unavailable AICHHOLZ, PYTHON WEB DEVELOPER JANENE Consulting Unavailable AICHHOLZ, PYTHON WEB DEVELOPER JANENE Attending Unavailable AICHHOLZ, PYTHON WEB DEVELOPER JANENE Admitting Unavailable AICHHOLZ, PYTHON WEB DEVELOPER JANENE Primary Care Unavailable AICHHOLZ, PYTHON WEB DEVELOPER JANENE Primary Care Unavailable AICHHOLZ, PYTHON WEB DEVELOPER JANENE Consulting Unavailable AICHHOLZ, PYTHON WEB DEVELOPER JANENE Admitting Unavailable AICHHOLZ, PYTHON WEB DEVELOPER JANENE Attending Unavailable AYDIN Carrillo, DR MIGUEL Attending Unavailable AYDIN Carrillo, DR MIGUEL Admitting Unavailable AYDIN Carrillo, DR MIGUEL Consulting Unavailable AICHHOLZ, PYTHON WEB DEVELOPER JANENE Primary Care Unavailable AICHHOLZ, PYTHON WEB DEVELOPER JANENE Primary Care Unavailable DWAYNE FRIEDMAN Admitting Unavailable DWAYNE FRIEDMAN Attending Unavailable CLEMENT PLUMMER Consulting Unavailable Wan Jenkins Consulting Unavailable AICHHOLZ, PYTHON WEB DEVELOPER JANENE Primary Care Unavailable EVON TRAMMELL Attending Unavailable EVON TRAMMELL Admitting Unavailable EVON TRAMMELL Consulting Unavailable LUZ COELLO Consulting Unavailable NATHAN COLE Consulting Unavailable LIN GARRETT Consulting Unavailable AICHHOLZ, PYTHON WEB DEVELOPER JANENE Primary Care Unavailable AICHHOLZ, PYTHON WEB DEVELOPER JANENE Admitting Unavailable AICHHOLZ, PYTHON WEB DEVELOPER JANENE Attending Unavailable TIFFANY, DR ALEX Ashley Consulting Unavailable AICHHOLZ, PYTHON WEB DEVELOPER JANENE Consulting Unavailable AICHHOLZ, PYTHON WEB DEVELOPER JANENE Consulting Unavailable AICHHOLZ, PYTHON WEB DEVELOPER JANENE Attending Unavailable AICHHOLZ, PYTHON WEB DEVELOPER JANENE Admitting Unavailable AICHHOLZ, PYTHON WEB DEVELOPER JANENE Primary Care Unavailable DR KATHY HENDRICKS Consulting Unavailable AICHHOLZ, PYTHON WEB DEVELOPER JANENE Attending Unavailable AICHHOLZ, PYTHON WEB DEVELOPER JANENE Admitting Unavailable AICHHOLZ, PYTHON WEB DEVELOPER JANENE Primary Care Unavailable DR ALEX ALLEN V Consulting Unavailable AICHHOLZ, PYTHON WEB DEVELOPER JANENE Consulting Unavailable AICHHOLZ, PYTHON WEB DEVELOPER JANENE Consulting Unavailable AICHHOLZ, PYTHON WEB DEVELOPER JANENE Primary Care Unavailable AICHHOLZ, PYTHON WEB DEVELOPER JANENE Attending Unavailable AICHHOLZ, PYTHON WEB DEVELOPER JANENE Admitting Unavailable AICHHOLZ, PYTHON WEB DEVELOPER JANENE Primary Care Unavailable AICHHOLZ, PYTHON WEB DEVELOPER JANENE Admitting Unavailable AICHHOLZ, PYTHON WEB DEVELOPER JANENE Consulting Unavailable AICHHOLZ, PYTHON WEB DEVELOPER JANENE Attending Unavailable DR KATHY HENDRICKS Consulting Unavailable AICHHOLZ, PYTHON WEB DEVELOPER JANENE Primary Care Unavailable BAKHOUS, AZIZ Admitting Unavailable BAKHOUS, AZIZ Attending Unavailable AICHHOLZ, PYTHON WEB DEVELOPER JANENE Attending Unavailable AICHHOLZ, PYTHON WEB DEVELOPER JANENE Admitting Unavailable AICHHOLZ, PYTHON WEB DEVELOPER JANENE Primary Care Unavailable AICHHOLZ, PYTHON WEB DEVELOPER JANENE Primary Care Unavailable AICHHOLZ, PYTHON WEB DEVELOPER JANENE Consulting Unavailable AICHHOLZ, PYTHON WEB DEVELOPER JANENE Attending Unavailable AICHHOLZ, PYTHON WEB DEVELOPER JANENE Admitting Unavailable DR KATHY HENDRICKS Consulting Unavailable AICHHOLZ, PYTHON WEB DEVELOPER JANENE Primary Care Unavailable AICHHOLZ, PYTHON WEB DEVELOPER JANENE Admitting Unavailable AICHHOLZ, PYTHON WEB DEVELOPER JANENE Attending Unavailable AICHHOLZ, PYTHON WEB DEVELOPER JANENE Consulting Unavailable AICHHOLZ, PYTHON WEB DEVELOPER JANENE Primary Care Unavailable AMBER ., DOLORES Attending Unavailable AMBER ., DOLORES Admitting Unavailable ASHLEY ., MR DELIA Consulting Unavailable AMBER ., DOLORES Consulting Unavailable ALEX AVINA Consulting Unavailable AICHHOLZ, PYTHON WEB DEVELOPER JANENE Primary Care Unavailable JP, EVON Attending Unavailable JP, EVON Admitting Unavailable EVON [...] sources) Cephalexin Drug Allergy 10-06-19 10 [facility] Repository (2 sources) Levamisole Drug Allergy 05-22-19 13 [facility] (2 sources) Omeprazole; Translations: [OMEPRAZOLE] Drug Allergy 04-20-19 16 [facility] Rep[facility] (14 sources) Prochlorperazine Drug Allergy 10-06-19 10 Unknown [facility] (14 sources) Sulfamethoxazole / Trimethoprim Drug Allergy 10-06-19 10 Unknown [facility] (12 sources) Penicillins (Antibiotic) Propensity to adverse reactions Unknown [facility] Other (16 sources) Promethazine; Translations: [PROMETHAZINE] Drug Allergy 06-28-19 14 Unknown, Seizure [facility] (5 sources) empagliflozin; Translations: [EMPAGLIFLOZIN] Drug Allergy 08-11-19 22 Unknown Reaction [facility] (6 sources) Penicillins; Translations: [Penicillins] Allergy to substance 06-28-19 14 [facility] (5 sources) Prochlorperazine; Translations: [PROCHLORPERAZINE] Drug Allergy 06-28-19 14 [facility] (5 sources) Sulfamethoxazole; Translations: [SULFAMETHOXAZOLE] Drug Allergy 06-28-19 14 [facility] (4 sources) Trimethoprim; Translations: [trimethoprim] Drug Allergy 08-11-19 22 [facility] (1 source) Sulfonamides (Antibiotic) Drug allergy (disorder) 06-10-19 15 [facility] Repository (1 source) Cephalexin; Translations: [CEPHALEXIN] Drug Allergy 06-28-19 14 [facility] (1 source) Doxycycline; Translations: [DOXYCYCLINE CALCIUM] Drug Allergy 06-28-19 14 [facility] (1 source) Esomeprazole; Translations: [ESOMEPRAZOLE MAGNESIUM] Drug Allergy 06-23-19 17 [facility] (1 source) pantoprazole; Translations: [PANTOPRAZOLE] Drug Allergy 06-23-19 17 [facility] Repository (1 source) Sulfamethoxazole / Trimethoprim; Translations: [SULFAMETHOXAZOLE-T RIMETHOPRIM] Drug Allergy 04-03-20 14 [facility] Rep[facility] (1 source) [place]; Translations: [PHENERGAN PLAIN] Propensity to adverse reactions to drug (disorder) 09-17-19 16 [facility] Rep[facility] (1 source) Promethazine Drug Allergy 06-25-19 23 [facility] Repository Medications Current Medications Medication Drug Class(es) Dates Sig (Normalized) Sig (Original) acetaminophen 325 mg / oxyCODONE hydrochloride 5 mg oral tablet (6 sources) Opioid Agonist Start: 06-24-2022 take 1 tablet by mouth every six hours Oxycodone-Acetami nophen Active 1 TAB PO Q6H 10 3 June 24, 2022 [id number] 200 actuat albuterol 0.09 mg/actuat metered dose [...] Active Start: 11-10-2021 take 2 tablets by [facility] every twelve hours Gabapentin 600 MG 2 tablets Orally bid for 20 days Oct, Active Start: 09-29-2021 take 1-2 capsules by mouth twice daily Gabapentin 300 MG 1-2 capsule Orally twice a day for 30 day(s) Sep, Active Start: 12-05-2019 take 1 capsule by [facility] every twenty-four hours Gabapentin 300 MG [...] Coronary arteriosclerosis; Translations: [Atherosclerotic heart disease of [place] coronary artery without angina pectoris] Onset: 09-11-2022 [...] deficiency, unspecified] Chronic Other aftercare (1 source) [employer] (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; Translations: [CARE HOME CURRENT USE OF ASPIRIN] Onset: 09-11-2022 Episodic Other aftercare (1 source) [employer] (current) use of oral hypoglycemic drugs; Translations: [CARE HOME USE ORAL HYPOGLYCEMIC DX] Onset: 09-11-2022 Episodic Other aftercare (1 source) Other nursing home (current) drug therapy; Translations: [OTH CARE HOME CURRENT DRUG THERAPY] Onset: 09-11-2022 Episodic Other [...] Range Facility Office Visiton 03-14-2023 Follow-up visit [id number] Nithin Humphreys A 1970 F Date Provider Department Center 03/14/2023 [id number]-PETROSFARZANATK SIDDIQUI [facility] No family history on file Level of Service:38039 CO OFFICE/OUTPATIENT ESTABLISHED MOD MDM 30-39 MIN Normal [facility] 37on 11-30-2022 37 -Stop hydrochlorothiazide and start Spironolactone 25 mg daily -Stop Lisinopril and start Entresto 2 day after stopping Lisinopril -Get labs 1 week after starting Entresto -Bring blood pressure machine to be checked out when you come for blood draw Normal [facility] Office Visiton 11-30-2022 Follow-up visit [id number] PetrNithin Patel 1970 Date Provider Department Center 11/30/2022 [id number]-VWXBNAQUMJONATHAN ARIAS MATTHEW [facility] No family history on file Level of Service:44985 CO OFFICE/OUTPATIENT ESTABLISHED MOD MDM 30-39 MIN Reason for Visit and Comments: Follow-up [541653] - Go over echo results [facility] Office Visiton 09-29-2022 Follow-up visit [id number] [place],Nithin Patel 1970 Date Provider Department Center 09/29/2022 [id number]-VOINDCPESJONATHAN ARIAS MATTHEW [facility] No family history on file Level of Service:02249 CO OFFICE/OUTPATIENT ESTABLISHED MOD MDM 30-39 MIN Reason for Visit and Comments: Follow-up [463052] - Pt is here for 1 year f/u - lots of symptoms pt states she been having swelling legs high BP and Shortness of breath pt states swelling started 2 month ago other symptoms started 1 month ago [facility] BNPon 09-07-2022 Natriuretic peptide B (Bld) [Mass/Vol] 391.0 pg/mL Normal <=900.0 [facility] Comment on above: Performed By: #### L IPID, BMP #### [facility] [address] [address] [address] Jag Waldrop CBC AUTO DIFFon 09-07-2022 BASO # 0.1 103/ul Normal 0.0-0.1 [facility] Comment on above: Performed By: #### L IPID, BMP #### [facility] [address] [place] [address] Dr. Jag Waldrop Basophils/100 WBC (Bld) 1.4 % Normal 0.2-2.0 [facility] Comment on above: Performed By: #### L IPID, BMP #### [facility] [address] [place] [address] Dr. Jag Waldrop EO # 0.1 103/ul Normal 0.0-0.7 [facility] Comment on above: Performed By: #### L IPID, BMP #### [facility] [address] [place] [address] Dr. Jag Waldrop Eosinophils/100 WBC (Bld) 1.6 % Normal 0.9-7.0 [facility] Comment on above: Performed By: #### L IPID, BMP #### [facility] [address] [place] [address] Dr. Jag Waldrop Erythrocyte distribution width (RBC) [Ratio] 15.0 % Normal 11.0-15.0 [facility] Comment on above: Performed By: #### L IPID, BMP #### [facility] [address] [place] [address] Dr. Jag Waldrop Hematocrit (Bld) [Volume fraction] 37.2 % Normal 36.0-48.0 [facility] Comment on above: Performed By: #### L IPID, BMP #### [facility] [address] [place] [address] Dr. Jag Waldrop Hemoglobin (Bld) [Mass/Vol] 11.6 g/dL Critically low 12.0-16.0 [facility] Comment on above: Performed By: #### L IPID, BMP #### [facility] [address] [place] [address] Dr. Jag Waldrop IG # 0.01 10e3/ul Normal 0.00-0.03 [facility] Comment on above: Performed By: #### L IPID, BMP #### [facility] [address] [place] [address] Dr. Jag Waldrop IG % 0.2 % Normal 0.0-0.5 [facility] Comment on above: Performed By: #### L IPID, BMP #### [facility] [address] [place] [address] Dr. Jag Waldrop LYMPH # 1.9 103/ul Normal 1.2-3.8 [facility] Comment on above: Performed By: #### L IPID, BMP #### [facility] [address] [place] [address] Dr. Jag Waldrop Lymphocytes/100 WBC (Bld) 39.1 % Normal 20.5-60.0 [facility] Comment on above: Performed By: #### L IPID, BMP #### [facility] [address] [place] [address] Dr. Jag Waldrop MANUAL DIFF REQ NO Normal [facility] Comment on above: Performed By: #### L IPID, BMP #### [facility] [address] [place] [address] Dr. Jag Waldrop MCH (RBC) [Entitic mass] 27.5 pg Normal 26.7-34.0 [facility] Comment on above: Performed By: #### L IPID, BMP #### [facility] [address] [place] [address] Dr. Jag Waldrop MCHC (RBC) [Mass/Vol] 31.2 g/dL Normal 29.9-35.2 [facility] Comment on above: Performed By: #### L IPID, BMP #### [facility] [address] [place] [address] Dr. Jag Waldrop MCV (RBC) [Entitic vol] 88.2 fL Normal 81.0-99.0 [facility] Comment on above: Performed By: #### L IPID, BMP #### [facility] [address] [place] [address] Dr. Jag Waldrop MONO # 0.3 103/ul Normal 0.3-0.8 [facility] Comment on above: Performed By: #### L IPID, BMP #### [facility] [address] [place] [address] Dr. Jag Waldrop Monocytes/100 WBC (Bld) 6.5 % Normal 1.7-12.0 [facility] Comment on above: Performed By: #### L IPID, BMP #### [facility] [address] [place] [address] Dr. Jag Waldrop NEUT # 2.5 103/ul Normal 1.4-6.5 [facility] Comment on above: Performed By: #### L IPID, BMP #### [facility] [address] [place] [address] Dr. Jag Waldrop Neutrophils/100 WBC (Bld) 51.2 % Normal 43.0-75.0 [facility] Comment on above: Performed By: #### L IPID, BMP #### [facility] [address] [place] [address] Dr. Jag Waldrop Platelet mean volume (Bld) [Entitic vol] 10.5 fL Normal 9.5-13.5 [facility] Comment on above: Performed By: #### L IPID, BMP #### [facility] [address] [place] [address] Dr. Jag Waldrop PLT 272 103/ul Normal 150-450 [facility] Comment on above: Performed By: #### L IPID, BMP #### [facility] [address] [place] [address] Dr. Jag Waldrop RBC 4.22 106/ul Normal 4.20-5.40 [facility] Comment on above: Performed By: #### L IPID, BMP #### [facility] [address] [place] [address] Dr. aJg Waldrop WBC 4.9 103/ul Normal 4.0-11.0 [facility] Comment on above: Performed By: #### L IPID, BMP #### [facility] [address] [place] [address] Dr. Jag Waldrop ER URINE PROFILEon 3 Bilirubin Ql (U) Negative Normal NEGATIVE [facility] Comment on above: Performed By: #### E RUR #### [facility] [address] [place], [place] [id number] Dr. Jag Waldrop Clarity (U) CLEAR Normal CLEAR [facility] Comment on above: Performed By: #### E RUR #### [facility] [address] [place] [address] Dr. Jag Waldrop Color (U) LT. YELLOW Normal YELLOW [facility] Comment on above: Performed By: #### E RUR #### [facility] [address] [place] [address] Dr. Jag Waldrop ERUAHD A micrscopic examination will be performed if indicated. Normal [facility] Comment on above: Performed By: #### E RUR #### [facility] [address] [place] [address] Dr. Jag Waldrop Glucose Ql (U) Negative Normal NEGATIVE [facility] Comment on above: Performed By: #### E RUR #### [facility] [address] [place] [address] Dr. Jag Waldrop Hemoglobin Ql (U) Negative Normal NEGATIVE [facility] Comment on above: Performed By: #### E RUR #### [facility] [address] [place] [address] Dr. Jag Waldrop Ketones Ql (U) Negative Normal NEGATIVE [facility] Comment on above: Performed By: #### E RUR #### [facility] [address] [place] [address] Dr. Jag Waldrop LEUKOCYTES Negative Normal NEGATIVE [facility] Comment on above: Performed By: #### E RUR #### [facility] [address] [place] [address] Dr. Jag Waldrop Nitrite Ql (U) Negative Normal NEGATIVE [facility] Comment on above: Performed By: #### E RUR #### [facility] [address] [place] [address] Dr. Jag Waldrop pH (U) 7.0 [pH] Normal 5-9 [facility] Comment on above: Performed By: #### E RUR #### [facility] [address] [place] [address] Dr. Jag Waldrop SPEC GRAVITY 1.010 Normal 1.005-<=1.025 [facility] Comment on above: Performed By: #### E RUR #### [facility] [address] [place] [address] Dr. Jag Waldrop UA PROTEIN Negative Normal NEGATIVE/ TRACE [facility] Comment on above: Performed By: #### E RUR #### [facility] [address] [place] [address] Dr. Jag Waldrop UR MICRO IND NOT INDICATED Normal [facility] Comment on above: Performed By: #### E RUR #### [facility] [address] [place] [address] Dr. Jag Waldrop Urobilinogen Qn (U) 0.2 {Chris'U}/dL Normal 0.2 - 1. 0 [facility] Comment on above: Performed By: #### E RUR #### [facility] [address] [place] [address] Dr. Jag Waldrop PROF 14(COMP METB)on 023 Albumin [Mass/Vol] 3.9 g/dL Normal 3.4-5.0 [facility] Comment on above: Performed By: #### L IPID, BMP #### [facility] [address] [place] [address] Dr. Jag Waldrop Albumin/Globulin [Mass ratio] 1.2 {ratio} Normal [facility] Comment on above: Performed By: #### L IPID, BMP #### [facility] [address] [place] [address] Dr. Jag Waldrop ALP [Catalytic activity/Vol] 95 U/L Normal 46-116 [facility] Comment on above: Performed By: #### L IPID, BMP #### [facility] [address] [place] [address] Dr. Jag Waldrop ALT [Catalytic activity/Vol] 31 U/L Normal 14-59 [facility] Comment on above: Performed By: #### L IPID, BMP #### [facility] [address] [place] [address] Dr. Jag Waldrop Anion gap [Moles/Vol] 12.7 mmol/L Normal [facility] Comment on above: Performed By: #### L IPID, BMP #### [facility] [address] [address] [address] Jag Waldrop AST [Catalytic activity/Vol] 34 U/L Normal 15-37 [facility] Comment on above: Performed By: #### L IPID, BMP #### [facility] [address] [place] [address] Dr. Jag Waldrop Bilirubin [Mass/Vol] 0.4 mg/dL Normal 0.2-1.0 [facility] Comment on above: Performed By: #### L IPID, BMP #### [facility] [address] [place] [address] Dr. Jag Waldrop Calcium [Mass/Vol] 9.1 mg/dL Normal 8.5-10.1 [facility] Comment on above: Performed By: #### L IPID, BMP #### [facility] [address] [place] [address] Dr. Jag Waldrop Chloride [Moles/Vol] 107 mmol/L Normal 98-107 [facility] Comment on above: Performed By: #### L IPID, BMP #### [facility] [address] [place] [address] Dr. Jag Waldrop CO2 [Moles/Vol] 28.1 mmol/L Normal 21.0-32.0 [facility] Comment on above: Performed By: #### L IPID, BMP #### [facility] [address] [place] [address] Dr. Jag Waldrop Creatinine [Mass/Vol] 1.18 mg/dL Critically high 0.55-1.02 [facility] Comment on above: Performed By: #### L IPID, BMP #### [facility] [address] [place] [address] Dr. Jag Waldrop EGFR-AF CHILEAN 59 mL/min/1.73m2 Critically low >=60 [facility] Comment on above: Performed By: #### L IPID, BMP #### [facility] [address] [place] [address] Dr. Jag Waldrop EGFR-NON AF CHILEAN 48 mL/min/1.73m2 Critically low >=60 [facility] Comment on above: Performed By: #### L IPID, BMP #### [facility] [address] [place] [address] Dr. Jag Waldrop Globulin (S) [Mass/Vol] 3.3 g/dL Normal [facility] Comment on above: Performed By: #### L IPID, BMP #### [facility] [address] [address] [address] Jag Waldrop Glucose [Mass/Vol] 111 mg/dL Critically high 74-106 [facility] Comment on above: Performed By: #### L IPID, BMP #### [facility] [address] [place] [address] Dr. Jag Waldrop Potassium [Moles/Vol] 3.8 mmol/L Normal 3.5-5.1 [facility] Comment on above: Performed By: #### L IPID, BMP #### [facility] [address] [place] [address] Dr. Jag Waldrop Protein [Mass/Vol] 7.2 g/dL Normal 6.4-8.2 [facility] Comment on above: Performed By: #### L IPID, BMP #### [facility] [address] [place] [address] Dr. Jag Waldrop Sodium [Moles/Vol] 144 mmol/L Normal 136-145 [facility] Comment on above: Performed By: #### L IPID, BMP #### [facility] [address] [place] [address] Dr. Jag Waldrop Urea nitrogen [Mass/Vol] 19.0 mg/dL Critically high 7.0-18.0 [facility] Comment on above: Performed By: #### L IPID, BMP #### [facility] [address] [place] [address] Dr. Jag Waldrop Urea nitrogen/Creatinine [Mass ratio] 16.1 mg/mg Normal [facility] Comment on above: Performed By: #### L IPID, BMP #### [facility] [address] [address] [address] Jag Waldrop PROTIMEon 09-07-2022 INR Coag (PPP) [Relative time] {INR} Normal [facility] Comment on above: Performed By: #### P T #### [facility] [address] [address] [address] Jag Waldrop INR GUIDELINES SEE BELOW Normal [facility] Comment on above: Result Comment: MARTIN RED INR: 2.0 - 3.0 CONDITIONS NOT LISTED BELOW 2.5 - 3.5 FOR PROSTHETIC HEART VALVE REPLACEMENT 2.5 - 3.5 RECURRENT THROMBOSIS Performed By: #### P T #### [facility] [address] [address] [address] Jag Waldrop PT Coag (PPP) [Time] 9.7 s Normal 9.0-11.6 [facility] Comment on above: Performed By: #### P T #### [facility] [address] [place] [address] Dr. Jag Waldrop TROPONIN, HIGH SENSITIVITYon 09-07-2022 HSTROP 17.8 pg/mL Normal 4.0-51.3 [facility] Comment on above: Result Comment: CUT- OFF POINTS HAVE BEEN ESTABLISHED BASED ON THE FOURTH UNIVERSAL DEFINITIONS OF MYOCARDIAL INFARCTION. THE UPPER REFERENCE LIMIT (URL) OF TROPONIN, DEFINED THE 99TH PERCENTILE OF cTnI DISTRIBUTION IN A REFERENCE POPULATION, HAS BEEN CONFIRMED THE DECISION THRESHOLD FOR CT DIAGNOSIS. Performed By: #### L IPID, BMP #### [facility] [address] [place] [address] Dr. Jag Waldrop XR CHEST 2 Von [...] by: WAN JENKINS Date: 2022-09-07 16:47 Normal [facility] GLYCOHEMOGLOBIN A1Con 2022 ADA RECOMMENDATION SEE BELOW Normal [facility] Comment on above: Result Comment: ADA RECOMMENDED LIMIT 4.0 - 6.0 ADA THERAPEUTIC TARGET < 7.0 ACTION SUGGESTED > 7.0 Performed By: #### L TESHA, BMP #### [facility] [address] [place] [address] Dr. Jag Waldrop Glucose [Mass/Vol] 120 mg/dL Normal [facility] Comment on above: Performed By: #### L TESHA, BMP #### [facility] [address] [place] [address] Dr. Jag Waldrop HbA1c (Bld) [Mass fraction] 5.8 % Normal 4.5-6.2 [facility] Comment on above: Performed By: #### L TESHA BMP #### [facility] [address] [place] [address] Dr. Jag Waldrop PROF CHEM 8 (BAS METB)on Anion gap [Moles/Vol] 13.2 mmol/L Normal [facility] Comment on above: Performed By: #### B MP #### [facility] [address] [place] [address] Dr. Jag Waldrop Calcium [Mass/Vol] 9.0 mg/dL Normal 8.5-10.1 [facility] Comment on above: Performed By: #### B MP #### [facility] [address] [place] [address] Dr. Jag Waldrop Chloride [Moles/Vol] 107 mmol/L Normal 98-107 [facility] Comment on above: Performed By: #### B MP #### [facility] [address] [place] [address] Dr. Jag Waldrop CO2 [Moles/Vol] 26.3 mmol/L Normal 21.0-32.0 [facility] Comment on above: Performed By: #### B MP #### [facility] [address] [place] [address] Dr. Jag Waldrop Creatinine [Mass/Vol] 1.03 mg/dL Critically high 0.55-1.02 [facility] Comment on above: Performed By: #### B MP #### [facility] [address] [address] [address] Jag Waldrop EGFR-AF CHILEAN >60 Normal >=60 [facility] Comment on above: Performed By: #### B MP #### [facility] [address] [address] [address] Jag Waldrop EGFR-NON AF CHILEAN 56 mL/min/1.73m2 Critically low >=60 [facility] Comment on above: Performed By: #### B MP #### [facility] [address] [address] [address] Jag Waldrop Glucose [Mass/Vol] 149 mg/dL Critically high 74-106 [facility] Comment on above: Performed By: #### B MP #### [facility] [address] [address] [address] Jag Waldrop Potassium [Moles/Vol] 4.5 mmol/L Normal 3.5-5.1 [facility] Comment on above: Performed By: #### B MP #### [facility] [address] [address] [address] Jag Waldrop Sodium [Moles/Vol] 142 mmol/L Normal 136-145 [facility] Comment on above: Performed By: #### B MP #### [facility] [address] [address] [address] Jag Waldrop Urea nitrogen [Mass/Vol] 22.0 mg/dL Critically high 7.0-18.0 [facility] Comment on above: Performed By: #### B MP #### [facility] [address] [address] [address] Jag Waldrop Urea nitrogen/Creatinine [Mass ratio] 21.4 mg/mg Normal [facility] Comment on above: Performed By: #### B MP #### [facility] [id number] Jag Waldrop CT ABD/PELVIS WO CONon [...] by: NATHAN COLE Date: 2022-05-29 22:50 Normal [facility] US KVNG DOP LEG RTon 05-30-19 23 [...] by: LUZ COELLO Date: 2022-05-29 22:42 Normal [facility] CBC AUTO DIFFon 05-29-2022 BASO # 0.1 103/ul Normal 0.0-0.1 [facility] Comment on above: Performed By: #### L IPID, BMP #### [facility] [address] [place] [address] Dr. Jag Waldrop Basophils/100 WBC (Bld) 0.7 % Normal 0.2-2.0 [facility] Comment on above: Performed By: #### L IPID, BMP #### [facility] [address] [place] [address] Dr. Jag Waldrop EO # 0.1 103/ul Normal 0.0-0.7 [facility] Comment on above: Performed By: #### L IPID, BMP #### [facility] [address] [place] [address] Dr. Jag Waldrop Eosinophils/100 WBC (Bld) 1.5 % Normal 0.9-7.0 [facility] Comment on above: Performed By: #### L IPID, BMP #### [facility] [address] [place] [address] Dr. Jag Waldrop Erythrocyte distribution width (RBC) [Ratio] 13.9 % Normal 11.0-15.0 [facility] Comment on above: Performed By: #### L IPID, BMP #### [facility] [address] [place] [address] Dr. Jag Waldrop Hematocrit (Bld) [Volume fraction] 34.2 % Critically low 36.0-48.0 [facility] Comment on above: Performed By: #### L IPID, BMP #### [facility] [address] [place] [address] Dr. Jag Waldrop Hemoglobin (Bld) [Mass/Vol] 10.9 g/dL Critically low 12.0-16.0 [facility] Comment on above: Performed By: #### L IPID, BMP #### [facility] [address] [place] [address] Dr. Jag Waldrop IG # 0.02 10e3/ul Normal 0.00-0.03 [facility] Comment on above: Performed By: #### L IPID, BMP #### [facility] [address] [place] [address] Dr. Jag Waldrop IG % 0.2 % Normal 0.0-0.5 [facility] Comment on above: Performed By: #### L IPID, BMP #### [facility] [address] [address] [address] Jag Waldrop LYMPH # 2.5 103/ul Normal 1.2-3.8 [facility] Comment on above: Performed By: #### L IPID, BMP #### [facility] [address] [place] [address] Dr. Jag Waldrop Lymphocytes/100 WBC (Bld) 30.4 % Normal 20.5-60.0 [facility] Comment on above: Performed By: #### L IPID, BMP #### [facility] [address] [place] [address] Dr. Jag Waldrop MANUAL DIFF REQ NO Normal [facility] Comment on above: Performed By: #### L IPID, BMP #### [facility] [address] [place] [address] Dr. Jag Waldrop MCH (RBC) [Entitic mass] 27.1 pg Normal 26.7-34.0 [facility] Comment on above: Performed By: #### L IPID, BMP #### [facility] [address] [place] [address] Dr. Jag Waldrop MCHC (RBC) [Mass/Vol] 31.9 g/dL Normal 29.9-35.2 [facility] Comment on above: Performed By: #### L IPID, BMP #### [facility] [address] [place] [address] Dr. Jag Waldrop MCV (RBC) [Entitic vol] 85.1 fL Normal 81.0-99.0 [facility] Comment on above: Performed By: #### L IPID, BMP #### [facility] [address] [place] [address] Dr. Jag Waldrop MONO # 0.5 103/ul Normal 0.3-0.8 [facility] Comment on above: Performed By: #### L IPID, BMP #### [facility] [address] [address] [address] Jag Waldrop Monocytes/100 WBC (Bld) 6.7 % Normal 1.7-12.0 [facility] Comment on above: Performed By: #### L IPID, BMP #### [facility] [address] [address] [address] Jag Waldrop NEUT # 4.9 103/ul Normal 1.4-6.5 [facility] Comment on above: Performed By: #### L IPID, BMP #### [facility] [address] [address] [address] Jag Waldrop Neutrophils/100 WBC (Bld) 60.5 % Normal 43.0-75.0 [facility] Comment on above: Performed By: #### L IPID, BMP #### [facility] [address] [place] [address] Dr. Jag Waldrop Platelet mean volume (Bld) [Entitic vol] 10.3 fL Normal 9.5-13.5 [facility] Comment on above: Performed By: #### L IPID, BMP #### [facility] [address] [place] [address] Dr. Jag Waldrop PLT 256 103/ul Normal 150-450 [facility] Comment on above: Performed By: #### L IPID, BMP #### [facility] [address] [address] [address] Jag Waldrop RBC 4.02 106/ul Critically low 4.20-5.40 [facility] Comment on above: Performed By: #### L IPID, BMP #### [facility] [address] [address] [address] Jag Waldrop WBC 8.1 103/ul Normal 4.0-11.0 [facility] Comment on above: Performed By: #### L IPID, BMP #### [facility] [address] [place] [address] Dr. Jag Waldrop ER URINE PROFILEon 3 Bilirubin Ql (U) Negative Normal NEGATIVE [facility] Comment on above: Performed By: #### L IPID, BMP #### [facility] [address] [place] [address] Dr. Jag Waldrop Clarity (U) CLEAR Normal CLEAR [facility] Comment on above: Performed By: #### L IPID, BMP #### [facility] [address] [place] [address] Dr. Jag Waldrop Color (U) YELLOW Normal YELLOW [facility] Comment on above: Performed By: #### L IPID, BMP #### [facility] [address] [place] [address] Dr. Jag Waldrop ERUAHTabitha A micrscopic examination will be performed if indicated. Normal [facility] Comment on above: Performed By: #### L IPID, BMP #### [facility] [address] [place] [address] Dr. Jag Waldrop Glucose Ql (U) Negative Normal NEGATIVE [facility] Comment on above: Performed By: #### L IPID, BMP #### [facility] [address] [place] [address] Dr. Jag Waldrop Hemoglobin Ql (U) Negative Normal NEGATIVE [facility] Comment on above: Performed By: #### L IPID, BMP #### [facility] [address] [place] [address] Dr. Jag Waldrop Ketones Ql (U) 15 mg/dl Abnormal NEGATIVE [facility] Comment on above: Performed By: #### L IPID, BMP #### [facility] [address] [place] [address] Dr. Jag Waldrop LEUKOCYTES TRACE Abnormal NEGATIVE [facility] Comment on above: Performed By: #### L IPID, BMP #### [facility] [address] [place] [address] Dr. Jga Waldrop Nitrite Ql (U) Negative Normal NEGATIVE [facility] Comment on above: Performed By: #### L IPID, BMP #### [facility] [address] [place] [address] Dr. Jag Waldrop pH (U) 5.5 [pH] Normal 5-9 [facility] Comment on above: Performed By: #### L IPID, BMP #### [facility] [address] [place] [address] Dr. Jag Waldrop SPEC GRAVITY 1.020 Normal 1.005-<=1.025 [facility] Comment on above: Performed By: #### L IPID, BMP #### [facility] [address] [place] [address] Dr. Jag Waldrop UA PROTEIN Negative Normal NEGATIVE/ TRACE [facility] Comment on above: Performed By: #### L IPID, BMP #### [facility] [address] [place] [address] Dr. Jag Waldrop UR MICRO IND INDICATED Normal [facility] Comment on above: Performed By: #### L IPID, BMP #### [facility] [address] [place] [address] Dr. Jag Waldrop Urobilinogen Qn (U) 0.2 {Chris'U}/dL Normal 0.2 - 1. 0 [facility] Comment on above: Performed By: #### L IPID, BMP #### [facility] [address] [place] [address] Dr. Jag Waldrop PROF CHEM 8 (BAS METB)on Anion gap [Moles/Vol] 14.2 mmol/L Normal [facility] Comment on above: Performed By: #### B MP #### [facility] [address] [place] [address] Dr. Jag Waldrop Calcium [Mass/Vol] 9.1 mg/dL Normal 8.5-10.1 [facility] Comment on above: Performed By: #### B MP #### [facility] [address] [place] [address] Dr. Jag Waldrop Chloride [Moles/Vol] 106 mmol/L Normal 98-107 [facility] Comment on above: Performed By: #### B MP #### [facility] [address] [place] [address] Dr. Jag Waldrop CO2 [Moles/Vol] 23.5 mmol/L Normal 21.0-32.0 [facility] Comment on above: Performed By: #### B MP #### [facility] [address] [address] [address] Jag Waldrop Creatinine [Mass/Vol] 1.29 mg/dL Critically high 0.55-1.02 [facility] Comment on above: Performed By: #### B MP #### [facility] [address] [address] [address] Jag Waldrop EGFR-AF CHILEAN 53 mL/min/1.73m2 Critically low >=60 [facility] Comment on above: Performed By: #### B MP #### [facility] [address] [address] [address] Jag Waldrop EGFR-NON AF CHILEAN 44 mL/min/1.73m2 Critically low >=60 [facility] Comment on above: Performed By: #### B MP #### [facility] [address] [address] [address] Jag Waldrop Glucose [Mass/Vol] 93 mg/dL Normal 74-106 [facility] Comment on above: Performed By: #### B MP #### [facility] [address] [address] [address] Jag Waldrop Potassium [Moles/Vol] 3.7 mmol/L Normal 3.5-5.1 [facility] Comment on above: Performed By: #### B MP #### [facility] [address] [address] [address] Jag Waldrop Sodium [Moles/Vol] 140 mmol/L Normal 136-145 [facility] Comment on above: Performed By: #### B MP #### [facility] [address] [address] [address] Jag Waldrop Urea nitrogen [Mass/Vol] 24.0 mg/dL Critically high 7.0-18.0 [facility] Comment on above: Performed By: #### B MP #### [facility] [address] [address] [address] Jag Waldrop Urea nitrogen/Creatinine [Mass ratio] 18.6 mg/mg Normal [facility] Comment on above: Performed By: #### B MP #### [facility] [address] [place] [address] Dr. Jag Waldrop URINE MICROSCOPIC ONLYon BACTERIA TRACE Abnormal NONE SEEN [facility] Comment on above: Performed By: #### L IPID, BMP #### [facility] [address] [place] [address] Dr. Jag Waldrop Bacteria identified Cx Nom (U) NOT INDICATED Normal [facility] Comment on above: Performed By: #### L IPID, BMP #### [facility] [address] [place] [address] Dr. Jag Waldrop CAST NONE SEEN Normal NONE SEEN [facility] Comment on above: Performed By: #### L IPID, BMP #### [facility] [address] [place] [address] Dr. Jag Waldrop Crystals LM Nom (Urine sed) NONE SEEN Normal NONE SEEN [facility] Comment on above: Performed By: #### L IPID, BMP #### [facility] [address] [place] [address] Dr. Jag Waldrop Epithelial cells LM Ql (Urine sed) RARE Normal NONE SEEN /RARE [facility] Comment on above: Performed By: #### L IPID, BMP #### [facility] [address] [place] [address] Dr. Jag Waldrop MUCOUS NONE SEEN Normal NONE SEEN [facility] Comment on above: Performed By: #### L IPID, BMP #### [facility] [address] [place] [address] Dr. Jag Waldrop RBC 5-10 Abnormal 0-2 [facility] Comment on above: Performed By: #### L IPID, BMP #### [facility] [address] [place] [address] Dr. Jag Waldrop WBC 0-2 Abnormal NONE SEEN [facility] Comment on above: Performed By: #### L IPID, BMP #### [facility] [address] [place] [address] Dr. Jag Waldrop MG MAMM SCREEN 3D ORESTES CADon 12-14-2022 MG MAMM SCREEN 3D ORESTES CAD Patient: PETR, SHERLY A. Exam Date: 03/29/2022 : 1970 Gender:F Ordering : AGUSTINA JANENE LEW [employer] Admission #: [id number] Family : Order #: [id number] CLICK HERE TO VIEW EXAM RADIOLOGY REPORT [...] head/neck cancer at age 73. LOCATION: [facility] BREAST COMPOSITION: Scattered areas fibroglandular density. [...] M.D. on 03/29/2022 at 15:31 Normal [facility] MRI LSPINE WO W CONon 2021 [...] KATHY HENDRICKS Date: 2022-03-23 11:26 Normal [facility] MRI TSPINE WO W CONon 2021 [...] KATHY HENDRICKS Date: 2022-03-23 12:50 Normal [facility] PROF CHEM 8 (BAS METB)on Anion gap [Moles/Vol] 11.8 mmol/L Normal [facility] Comment on above: Performed By: #### P OCGLUC #### [facility] [address] [place] [address] Dr. Jag Waldrop Calcium [Mass/Vol] 9.0 mg/dL Normal 8.5-10.1 [facility] Comment on above: Performed By: #### P OCGLUC #### [facility] [address] [address] [address] Jag Waldrop Chloride [Moles/Vol] 107 mmol/L Normal 98-107 [facility] Comment on above: Performed By: #### P OCGLUC #### [facility] [address] [address] [address] Jag Waldrop CO2 [Moles/Vol] 30.2 mmol/L Normal 21.0-32.0 [facility] Comment on above: Performed By: #### P OCGLUC #### [facility] [address] [address] [address] Jag Waldrop Creatinine [Mass/Vol] 1.32 mg/dL Critically high 0.55-1.02 [facility] Comment on above: Performed By: #### P OCGLUC #### [facility] [address] [address] [address] Jag Waldrop EGFR-AF CHILEAN 51 mL/min/1.73m2 Critically low >=60 [facility] Comment on above: Performed By: #### P OCGLUC #### [facility] [address] [address] [address] Jag Waldrop EGFR-NON AF CHILEAN 42 mL/min/1.73m2 Critically low >=60 [facility] Comment on above: Performed By: #### P OCGLUC #### [facility] [address] [address] [address] Jag Waldrop Glucose [Mass/Vol] 117 mg/dL Critically high 74-106 [facility] Comment on above: Performed By: #### P OCGLUC #### [facility] [address] [address] [address] Jag Waldrop Potassium [Moles/Vol] 4.0 mmol/L Normal 3.5-5.1 [facility] Comment on above: Performed By: #### P OCGLUC #### [facility] [address] [address] [address] Jag Waldrop Sodium [Moles/Vol] 145 mmol/L Normal 136-145 [facility] Comment on above: Performed By: #### P OCGLUC #### [facility] [address] [place] [address] Dr. Jag Waldrop Urea nitrogen [Mass/Vol] 23.0 mg/dL Critically high 7.0-18.0 [facility] Comment on above: Performed By: #### P OCGLUC #### [facility] [address] [place] [address] Dr. Jag Waldrop Urea nitrogen/Creatinine [Mass ratio] 17.4 mg/mg Normal [facility] Comment on above: Performed By: #### P OCGLUC #### [facility] [address] [place] [address] Dr. Jag Waldrop CBC AUTO DIFFon 02-19-2022 BASO # 0.1 103/ul Normal 0.0-0.1 [facility] Comment on above: Performed By: #### P OCGLUC #### [facility] [address] [place] [address] Dr. Jag Waldrop Basophils/100 WBC (Bld) 1.0 % Normal 0.2-2.0 [facility] Comment on above: Performed By: #### P OCGLUC #### [facility] [address] [place] [address] Dr. Jag Waldrop EO # 0.1 103/ul Normal 0.0-0.7 [facility] Comment on above: Performed By: #### P OCGLUC #### [facility] [address] [place] [address] Dr. Jag Waldrop Eosinophils/100 WBC (Bld) 1.9 % Normal 0.9-7.0 [facility] Comment on above: Performed By: #### P OCGLUC #### [facility] [address] [place] [address] Dr. Jag Waldrop Erythrocyte distribution width (RBC) [Ratio] 13.2 % Normal 11.0-15.0 [facility] Comment on above: Performed By: #### P OCGLUC #### [facility] [address] [address] [address] Jag Waldrop Hematocrit (Bld) [Volume fraction] 36.7 % Normal 36.0-48.0 [facility] Comment on above: Performed By: #### P OCGLUC #### [facility] [address] [address] [address] Jag Waldrop Hemoglobin (Bld) [Mass/Vol] 11.4 g/dL Critically low 12.0-16.0 [facility] Comment on above: Performed By: #### P OCGLUC #### [facility] [address] [address] [address] Jag Waldrop IG # 0.03 10e3/ul Normal 0.00-0.03 [facility] Comment on above: Performed By: #### P OCGLUC #### [facility] [address] [place] [address] Dr. Jag Waldrop IG % 0.5 % Normal 0.0-0.5 [facility] Comment on above: Performed By: #### P OCGLUC #### [facility] [address] [place] [address] Dr. Jag Waldrop LYMPH # 2.1 103/ul Normal 1.2-3.8 [facility] Comment on above: Performed By: #### P OCGLUC #### [facility] [address] [place] [address] Dr. Jag Waldrop Lymphocytes/100 WBC (Bld) 34.1 % Normal 20.5-60.0 [facility] Comment on above: Performed By: #### P OCGLUC #### [facility] [address] [place] [address] Dr. Jag Waldrop MANUAL DIFF REQ NO Normal [facility] Comment on above: Performed By: #### P OCGLUC #### [facility] [address] [place] [address] Dr. Jag Waldrop MCH (RBC) [Entitic mass] 28.4 pg Normal 26.7-34.0 [facility] Comment on above: Performed By: #### P OCGLUC #### [facility] [address] [address] [address] Jag Waldrop MCHC (RBC) [Mass/Vol] 31.1 g/dL Normal 29.9-35.2 [facility] Comment on above: Performed By: #### P OCGLUC #### [facility] [address] [place] [address] Dr. Jag Waldrop MCV (RBC) [Entitic vol] 91.5 fL Normal 81.0-99.0 [facility] Comment on above: Performed By: #### P OCGLUC #### [facility] [address] [address] [address] Jag Waldrop MONO # 0.5 103/ul Normal 0.3-0.8 [facility] Comment on above: Performed By: #### P OCGLUC #### [facility] [address] [place] [address] Dr. Jag Waldrop Monocytes/100 WBC (Bld) 8.4 % Normal 1.7-12.0 [facility] Comment on above: Performed By: #### P OCGLUC #### [facility] [address] [place] [address] Dr. Jag Waldrop NEUT # 3.3 103/ul Normal 1.4-6.5 [facility] Comment on above: Performed By: #### P OCGLUC #### [facility] [address] [place] [address] Dr. Jag Waldrop Neutrophils/100 WBC (Bld) 54.1 % Normal 43.0-75.0 [facility] Comment on above: Performed By: #### P OCGLUC #### [facility] [address] [place] [address] Dr. Jag Waldrop Platelet mean volume (Bld) [Entitic vol] 10.6 fL Normal 9.5-13.5 [facility] Comment on above: Performed By: #### P OCGLUC #### [facility] [address] [place] [address] Dr. Jag Waldrop PLT 294 103/ul Normal 150-450 [facility] Comment on above: Performed By: #### P OCGLUC #### [facility] [address] [address] [address] Jag Waldrop RBC 4.01 106/ul Critically low 4.20-5.40 [facility] Comment on above: Performed By: #### P OCGLUC #### [facility] [address] [place] [address] Dr[address] Jag Waldrop WBC 6.2 103/ul Normal 4.0-11.0 [facility] Comment on above: Performed By: #### P OCGLUC #### [facility] [address] [address] [address] Jag Waldrop CRPon 02-19-2022 CRP [Mass/Vol] mg/L Normal <=1.0 [facility] Comment on above: Performed By: #### E RUR #### [facility] [address] [address] [address] TSPINE WO CONon [...] ALEX AVINA Date: 2022-02-19 19:25 Normal [facility] ER URINE PROFILEon 2 Bilirubin Ql (U) Negative Normal NEGATIVE [facility] Comment on above: Performed By: #### P OCGLUC #### [facility] [address] [address] [address] aJg Waldrop Clarity (U) CLEAR Normal CLEAR [facility] Comment on above: Performed By: #### P OCGLUC #### [facility] [address] [place] [address] Dr. Jag Waldrop Color (U) LT. YELLOW Normal YELLOW [facility] Comment on above: Performed By: #### P OCGLUC #### [facility] [address] [address] [address] Jag SAL A micrscopic examination will be performed if indicated. Normal [facility] Comment on above: Performed By: #### P OCGLUC #### [facility] [address] [place] [address] Dr. Jag Waldrop Glucose Ql (U) Negative Normal NEGATIVE [facility] Comment on above: Performed By: #### P OCGLUC #### [facility] [address] [place] [address] Dr. Jag Waldrop Hemoglobin Ql (U) Negative Normal NEGATIVE [facility] Comment on above: Performed By: #### P OCGLUC #### [facility] [address] [place] [address] Dr. Jag Waldrop Ketones Ql (U) Negative Normal NEGATIVE [facility] Comment on above: Performed By: #### P OCGLUC #### [facility] [address] [place] [address] Dr. Jag Waldrop LEUKOCYTES Negative Normal NEGATIVE [facility] Comment on above: Performed By: #### P OCGLUC #### [facility] [address] [place] [address] Dr. Jag Waldrop Nitrite Ql (U) Negative Normal NEGATIVE [facility] Comment on above: Performed By: #### P OCGLUC #### [facility] [address] [place] [address] Dr. Jag Waldrop pH (U) 5.5 [pH] Normal 5-9 [facility] Comment on above: Performed By: #### P OCGLUC #### [facility] [address] [place] [address] Dr. Jag Waldrop SPEC GRAVITY 1.020 Normal 1.005-<=1.025 [facility] Comment on above: Performed By: #### P OCGLUC #### [facility] [address] [place] [address] Dr. Jag Waldrop UA PROTEIN Negative Normal NEGATIVE/ TRACE [facility] Comment on above: Performed By: #### P OCGLUC #### [facility] [address] [place] [address] Dr. Jag Waldrop UR MICRO IND NOT INDICATED Normal [facility] Comment on above: Performed By: #### P OCGLUC #### [facility] [address] [place] [address] Dr. Jag Waldrop Urobilinogen Qn (U) 0.2 {Chris'U}/dL Normal 0.2 - 1. 0 [facility] Comment on above: Performed By: #### P OCGLUC #### [facility] [address] [place] [address] Dr. Jag Waldrop PROF CHEM 8 (BAS METB)on Anion gap [Moles/Vol] 10.8 mmol/L Normal [facility] Comment on above: Performed By: #### E RUR #### [facility] [address] [place] [address] Dr. Jag Waldrop Calcium [Mass/Vol] 9.0 mg/dL Normal 8.5-10.1 [facility] Comment on above: Performed By: #### E RUR #### [facility] [address] [place] [address] Dr. Jag Waldrop Chloride [Moles/Vol] 106 mmol/L Normal 98-107 [facility] Comment on above: Performed By: #### E RUR #### [facility] [address] [place] [address] Dr. Jag Waldrop CO2 [Moles/Vol] 28.1 mmol/L Normal 21.0-32.0 [facility] Comment on above: Performed By: #### E RUR #### [facility] [address] [place] [address] Dr. Jag Waldrop Creatinine [Mass/Vol] 1.06 mg/dL Critically high 0.55-1.02 [facility] Comment on above: Performed By: #### E RUR #### [facility] [address] [place] [address] Dr. Jag Waldrop EGFR-AF CHILEAN >60 Normal >=60 [facility] Comment on above: Performed By: #### E RUR #### [facility] [address] [address] [address] Jag Waldrop EGFR-NON AF CHILEAN 55 mL/min/1.73m2 Critically low >=60 [facility] Comment on above: Performed By: #### E RUR #### [facility] [address] [place] [address] Dr. Jag Waldrop Glucose [Mass/Vol] 89 mg/dL Normal 74-106 [facility] Comment on above: Performed By: #### E RUR #### [facility] [address] [place] [address] Dr. Jag Waldrop Potassium [Moles/Vol] 3.9 mmol/L Normal 3.5-5.1 [facility] Comment on above: Performed By: #### E RUR #### [facility] [address] [place] [address] Dr. Jag Waldrop Sodium [Moles/Vol] 141 mmol/L Normal 136-145 [facility] Comment on above: Performed By: #### E RUR #### [facility] [address] [place] [address] Dr. Jag Waldrop Urea nitrogen [Mass/Vol] 19.0 mg/dL Critically high 7.0-18.0 [facility] Comment on above: Performed By: #### E RUR #### [facility] [address] [place] [address] Dr. Jag Waldrop Urea nitrogen/Creatinine [Mass ratio] 17.9 mg/mg Normal [facility] Comment on above: Performed By: #### E RUR #### [facility] [address] [place] [address] Dr. Jag Waldrop SED RATE [facility] 2021 SED RATE 19 mm/hr Normal <=30 [facility] Comment on above: Performed By: #### L IPID, BMP #### [facility] [address] [place] [address] Dr. Jag Waldrop PROF CHEM 8 (BAS METB)on Anion gap [Moles/Vol] 17.3 mmol/L Normal [facility] Comment on above: Performed By: #### L IPID, BMP #### [facility] [address] [place] [address] Dr. Jag Waldrop Calcium [Mass/Vol] 9.2 mg/dL Normal 8.5-10.1 [facility] Comment on above: Performed By: #### L IPID, BMP #### [facility] [address] [place] [address] Dr. Jag Waldrop Chloride [Moles/Vol] 108 mmol/L Critically high 98-107 [facility] Comment on above: Performed By: #### L IPID, BMP #### [facility] [address] [place] [address] Dr. Jag Waldrop CO2 [Moles/Vol] 20.0 mmol/L Critically low 21.0-32.0 [facility] Comment on above: Performed By: #### L IPID, BMP #### [facility] [address] [place] [address] Dr. Jag Waldrop Creatinine [Mass/Vol] 1.40 mg/dL Critically high 0.55-1.02 [facility] Comment on above: Performed By: #### L IPID, BMP #### [facility] [address] [place] [address] Dr. Jag Waldrop EGFR-AF CHILEAN 48 mL/min/1.73m2 Critically low >=60 [facility] Comment on above: Performed By: #### L IPID, BMP #### [facility] [address] [place] [address] Dr. Jag Waldrop EGFR-NON AF CHILEAN 40 mL/min/1.73m2 Critically low >=60 [facility] Comment on above: Performed By: #### L IPID, BMP #### [facility] [address] [address] [address] Jag Waldrop Glucose [Mass/Vol] 126 mg/dL Critically high 74-106 [facility] Comment on above: Performed By: #### L IPID, BMP #### [facility] [address] [place] [address] Dr. Jag Waldrop Potassium [Moles/Vol] 5.3 mmol/L Critically high 3.5-5.1 [facility] Comment on above: Performed By: #### L IPID, BMP #### [facility] [address] [place] [address] Dr. Jag Waldrop Sodium [Moles/Vol] 140 mmol/L Normal 136-145 [facility] Comment on above: Performed By: #### L IPID, BMP #### [facility] [address] [place] [address] Dr. Jag Waldrop Urea nitrogen [Mass/Vol] 31.0 mg/dL Critically high 7.0-18.0 [facility] Comment on above: Performed By: #### L IPID, BMP #### [facility] [address] [place] [address] Dr. Jag Waldrop Urea nitrogen/Creatinine [Mass ratio] 22.1 mg/mg Normal [facility] Comment on above: Performed By: #### L IPID, BMP #### [facility] [address] [place] [address] Dr. Jag Waldrop CBC AUTO DIFFon 01-23-2022 BASO # 0.1 103/ul Normal 0.0-0.1 [facility] Comment on above: Performed By: #### C BC #### [facility] [address] [place] [address] Dr. Jag Waldrop Basophils/100 WBC (Bld) 1.0 % Normal 0.2-2.0 [facility] Comment on above: Performed By: #### C BC #### [facility] [address] [place] [address] Dr. Jag Waldrop EO # 0.2 103/ul Normal 0.0-0.7 [facility] Comment on above: Performed By: #### C BC #### [facility] [address] [place] [address] Dr. Jag Waldrop Eosinophils/100 WBC (Bld) 3.3 % Normal 0.9-7.0 [facility] Comment on above: Performed By: #### C BC #### [facility] [address] [place] [address] Dr. Jag Waldrop Erythrocyte distribution width (RBC) [Ratio] 13.2 % Normal 11.0-15.0 [facility] Comment on above: Performed By: #### C BC #### [facility] [address] [place] [address] Dr. Jag Waldrop Hematocrit (Bld) [Volume fraction] 35.6 % Critically low 36.0-48.0 [facility] Comment on above: Performed By: #### C BC #### [facility] [address] [place] [address] Dr. Jag Waldrop Hemoglobin (Bld) [Mass/Vol] 10.6 g/dL Critically low 12.0-16.0 [facility] Comment on above: Performed By: #### C BC #### [facility] [address] [place] [address] Dr. Jag Waldrop IG # 0.01 10e3/ul Normal 0.00-0.03 [facility] Comment on above: Performed By: #### C BC #### [facility] [address] [place] [address] Dr. Jag Waldrop IG % 0.2 % Normal 0.0-0.5 [facility] Comment on above: Performed By: #### C BC #### [facility] [address] [place] [address] Dr. Jag Waldrop LYMPH # 1.7 103/ul Normal 1.2-3.8 [facility] Comment on above: Performed By: #### C BC #### [facility] [address] [place] [address] Dr. Jag Waldrop Lymphocytes/100 WBC (Bld) 35.4 % Normal 20.5-60.0 [facility] Comment on above: Performed By: #### C BC #### [facility] [address] [place] [address] Dr. Jag Waldrop MANUAL DIFF REQ NO Normal [facility] Comment on above: Performed By: #### C BC #### [facility] [address] [place] [address] Dr. Jag Waldrop MCH (RBC) [Entitic mass] 29.0 pg Normal 26.7-34.0 [facility] Comment on above: Performed By: #### C BC #### [facility] [address] [place] [address] Dr. Jag Waldrop MCHC (RBC) [Mass/Vol] 29.8 g/dL Critically low 29.9-35.2 [facility] Comment on above: Performed By: #### C BC #### [facility] [address] [place] [address] Dr. Jag Waldrop MCV (RBC) [Entitic vol] 97.3 fL Normal 81.0-99.0 [facility] Comment on above: Performed By: #### C BC #### [facility] [address] [place] [address] Dr. Jag Waldrop MONO # 0.3 103/ul Normal 0.3-0.8 [facility] Comment on above: Performed By: #### C BC #### [facility] [address] [place] [address] Dr. Jag Waldrop Monocytes/100 WBC (Bld) 6.8 % Normal 1.7-12.0 [facility] Comment on above: Performed By: #### C BC #### [facility] [address] [place] [address] Dr. Jag Waldrop NEUT # 2.6 103/ul Normal 1.4-6.5 [facility] Comment on above: Performed By: #### C BC #### [facility] [address] [place] [address] Dr. Jag Waldrop Neutrophils/100 WBC (Bld) 53.3 % Normal 43.0-75.0 [facility] Comment on above: Performed By: #### C BC #### [facility] [address] [address] [address] Jag Waldrop Platelet mean volume (Bld) [Entitic vol] 11.0 fL Normal 9.5-13.5 [facility] Comment on above: Performed By: #### C BC #### [facility] [address] [address] [address] Jag Waldrop PLT 230 103/ul Normal 150-450 [facility] Comment on above: Performed By: #### C BC #### [facility] [address] [address] [address] Jag Waldrop RBC 3.66 106/ul Critically low 4.20-5.40 [facility] Comment on above: Performed By: #### C BC #### [facility] [address] [address] [address] Jag Waldrop WBC 4.8 103/ul Normal 4.0-11.0 [facility] Comment on above: Performed By: #### C BC #### [facility] [address] [address] [address] Jag Waldrop FERRITINon 01-23-2022 Ferritin [Mass/Vol] 35.0 ng/mL Normal 8.0-252.0 [facility] Comment on above: Performed By: #### L IPID, BMP #### [facility] [address] [place] [address] Dr. Jag Waldrop IRONon 01-23-2022 Iron [Mass/Vol] 71.0 ug/dL Normal 50.0-170.0 [facility] Comment on above: Performed By: #### L IPID, BMP #### [facility] [address] [place] [address] Dr. Jag Waldrop LIPID PROFILEon 01-23-2022 CHOL-HDL RATIO NORM SEE BELOW Normal [facility] Comment on above: Result Comment: 3.3 - 4.4 LOW RISK 4.4 - 7.1 AVERAGE RISK 7.1 - 11.0 MODERATE RISK >11.0 HIGH RISK Performed By: #### L IPID, BMP #### [facility] [address] [address] [address] Jag Waldrop Cholesterol [Mass/Vol] 133 mg/dL Normal <=200 [facility] Comment on above: Performed By: #### L IPID, BMP #### [facility] [address] [address] [address] Jag Waldrop Cholesterol in HDL [Mass/Vol] 41 mg/dL Normal 40-60 [facility] Comment on above: Performed By: #### L IPID, BMP #### [facility] [address] [address] [address] Jag Waldrop Cholesterol in LDL [Mass/Vol] 70.8 mg/dL Normal [facility] Comment on above: Performed By: #### L IPID, BMP #### [facility] [address] [address] [address] Jag Waldrop Cholesterol.total/C holesterol in HDL [Mass ratio] 3.2 {ratio} Normal [facility] Comment on above: Performed By: #### L IPID, BMP #### [facility] [address] [address] [address] Jag Waldrop HDL NORMAL > or = 60 mg/dl - LO W CARDIOVASCULAR RISK <40 mg/dl - HIGH CARDIOVASCULAR RISK Normal [facility] Comment on above: Performed By: #### L IPID, BMP #### [facility] [address] [address] [address] Jag Waldrop LDL CALC NORMAL SEE BELOW Normal [facility] Comment on above: Result Comment: <100 mg/dl OPTIMAL 100 - 129 mg/dl NEAR OR ABOVE OPTIMAL 130 - 159 mg/dl BORDERLINE HIGH 160 - 189 mg/dl HIGH >190 mg/dl VERY HIGH Performed By: #### L IPID, BMP #### [facility] [address] [address] [address] Jag Waldrop Triglyceride [Mass/Vol] 106 mg/dL Normal <=150 [facility] Comment on above: Performed By: #### L IPID, BMP #### [facility] [address] [address] [address] Jag Waldrop VLDL CALC 21.2 mg/dL Normal [facility] Comment on above: Performed By: #### L IPID, BMP #### [facility] [address] [place] [address] Dr. Jag Waldrop PROF CHEM 8 (BAS METB)on Anion gap [Moles/Vol] 18.2 mmol/L Normal [facility] Comment on above: Performed By: #### L IPID, BMP #### [facility] [address] [place] [address] Dr. Jag Waldrop Calcium [Mass/Vol] 9.3 mg/dL Normal 8.5-10.1 [facility] Comment on above: Performed By: #### L IPID, BMP #### [facility] [address] [place] [address] Dr. Jag Waldrop Chloride [Moles/Vol] 111 mmol/L Critically high 98-107 [facility] Comment on above: Performed By: #### L IPID, BMP #### [facility] [address] [place] [address] Dr. Jag Waldrop CO2 [Moles/Vol] 19.9 mmol/L Critically low 21.0-32.0 [facility] Comment on above: Performed By: #### L IPID, BMP #### [facility] [address] [place] [address] Dr. Jag Waldrop Creatinine [Mass/Vol] 1.27 mg/dL Critically high 0.55-1.02 [facility] Comment on above: Performed By: #### L IPID, BMP #### [facility] [address] [place] [address] Dr. Jag Waldrop EGFR-AF CHILEAN 54 mL/min/1.73m2 Critically low >=60 [facility] Comment on above: Performed By: #### L IPID, BMP #### [facility] [address] [place] [address] Dr. Jag Waldrop EGFR-NON AF CHILEAN 44 mL/min/1.73m2 Critically low >=60 [facility] Comment on above: Performed By: #### L IPID, BMP #### [facility] [address] [address] [address] Jag Waldrop Glucose [Mass/Vol] 129 mg/dL Critically high 74-106 [facility] Comment on above: Performed By: #### L IPID, BMP #### [facility] [address] [place] [address] Dr. Jag Waldrop Potassium [Moles/Vol] 6.1 mmol/L Critically high 3.5-5.1 [facility] Comment on above: Performed By: #### L IPID, BMP #### [facility] [address] [address] [address] Jag Waldrop Sodium [Moles/Vol] 142 mmol/L Normal 136-145 [facility] Comment on above: Performed By: #### L IPID, BMP #### [facility] [address] [place] [address] Dr. Jag Waldrop Urea nitrogen [Mass/Vol] 35.0 mg/dL Critically high 7.0-18.0 [facility] Comment on above: Performed By: #### L IPID, BMP #### [facility] [address] [place] [address] Dr. Jag Waldrop Urea nitrogen/Creatinine [Mass ratio] 27.6 mg/mg Normal [facility] Comment on above: Performed By: #### L IPID, BMP #### [facility] [address] [place] [address] Dr. Jag Waldrop VITAMIN B12on 01-23-2022 Cobalamin (Vitamin B12) [Mass/Vol] 267.0 pg/mL Normal 193.0-986.0 [facility] Comment on above: Performed By: #### L IPID, BMP #### [facility] [address] [place] [address] Dr. Jag Waldrop XR CSPINE 2_3 VIEWSon [...] KATHY HENDRICKS Date: 2022-01-12 09:39 Normal [facility] BNPon 12-21-2021 Natriuretic peptide B (Bld) [Mass/Vol] 283.0 pg/mL Normal <=900.0 [facility] Comment on above: Performed By: #### P OCGLUC #### [facility] [address] [place] [address] Dr. Jag Waldrop CBC AUTO DIFFon 12-21-2021 BASO # 0.1 103/ul Normal 0.0-0.1 [facility] Comment on above: Performed By: #### L IPID, BMP #### [facility] [address] [place] [address] Dr. Jag Waldrop Basophils/100 WBC (Bld) 0.8 % Normal 0.2-2.0 [facility] Comment on above: Performed By: #### L IPID, BMP #### [facility] [address] [place] [address] Dr. Jag Waldrop EO # 0.3 103/ul Normal 0.0-0.7 [facility] Comment on above: Performed By: #### L IPID, BMP #### [facility] [address] [place] [address] Dr. Jag Waldrop Eosinophils/100 WBC (Bld) 3.8 % Normal 0.9-7.0 [facility] Comment on above: Performed By: #### L IPID, BMP #### [facility] [address] [place] [address] Dr. Jag Waldrop Erythrocyte distribution width (RBC) [Ratio] 13.2 % Normal 11.0-15.0 [facility] Comment on above: Performed By: #### L IPID, BMP #### [facility] [address] [place] [address] Dr. Jag Waldrop Hematocrit (Bld) [Volume fraction] 34.8 % Critically low 36.0-48.0 [facility] Comment on above: Performed By: #### L IPID, BMP #### [facility] [address] [place] [address] Dr. Jag Waldrop Hemoglobin (Bld) [Mass/Vol] 10.6 g/dL Critically low 12.0-16.0 [facility] Comment on above: Performed By: #### L IPID, BMP #### [facility] [address] [place] [address] Dr. Jag Waldrop IG # 0.02 10e3/ul Normal 0.00-0.03 [facility] Comment on above: Performed By: #### L IPID, BMP #### [facility] [address] [place] [address] Dr. Jag Waldrop IG % 0.3 % Normal 0.0-0.5 [facility] Comment on above: Performed By: #### L IPID, BMP #### [facility] [address] [place] [address] Dr. Jag Waldrop LYMPH # 1.7 103/ul Normal 1.2-3.8 [facility] Comment on above: Performed By: #### L IPID, BMP #### [facility] [address] [place] [address] Dr. Jag Waldrop Lymphocytes/100 WBC (Bld) 23.8 % Normal 20.5-60.0 [facility] Comment on above: Performed By: #### L IPID, BMP #### [facility] [address] [place] [address] Dr. Jag Waldrop MANUAL DIFF REQ NO Normal [facility] Comment on above: Performed By: #### L IPID, BMP #### [facility] [address] [place] [address] Dr. Jag Waldrop MCH (RBC) [Entitic mass] 29.1 pg Normal 26.7-34.0 [facility] Comment on above: Performed By: #### L IPID, BMP #### [facility] [address] [place] [address] Dr. Jag Waldrop MCHC (RBC) [Mass/Vol] 30.5 g/dL Normal 29.9-35.2 [facility] Comment on above: Performed By: #### L IPID, BMP #### [facility] [address] [place] [address] Dr. Jag Waldrop MCV (RBC) [Entitic vol] 95.6 fL Normal 81.0-99.0 [facility] Comment on above: Performed By: #### L IPID, BMP #### [facility] [address] [place] [address] Dr. Jag Waldrop MONO # 0.7 103/ul Normal 0.3-0.8 [facility] Comment on above: Performed By: #### L IPID, BMP #### [facility] [address] [place] [address] Dr. Jag Waldrop Monocytes/100 WBC (Bld) 9.3 % Normal 1.7-12.0 [facility] Comment on above: Performed By: #### L IPID, BMP #### [facility] [address] [place] [address] Dr. Jag Waldrop NEUT # 4.4 103/ul Normal 1.4-6.5 [facility] Comment on above: Performed By: #### L IPID, BMP #### [facility] [address] [place] [address] Dr. Jag Waldrop Neutrophils/100 WBC (Bld) 62.0 % Normal 43.0-75.0 [facility] Comment on above: Performed By: #### L IPID, BMP #### [facility] [address] [place] [address] Dr. Jag Waldrop Platelet mean volume (Bld) [Entitic vol] 11.5 fL Normal 9.5-13.5 [facility] Comment on above: Performed By: #### L IPID, BMP #### [facility] [address] [place] [address] Dr. Jag Waldrop PLT 235 103/ul Normal 150-450 [facility] Comment on above: Performed By: #### L IPID, BMP #### [facility] [address] [address] [address] Jag Waldrop RBC 3.64 106/ul Critically low 4.20-5.40 [facility] Comment on above: Performed By: #### L IPID, BMP #### [facility] [address] [address] [address] Jag Waldrop WBC 7.1 103/ul Normal 4.0-11.0 [facility] Comment on above: Performed By: #### L IPID, BMP #### [facility] [address] [address] [address] Jag Waldrop CRPon 12-21-2021 CRP 1.1 mg/dL Critically high <=1.0 [facility] Comment on above: Performed By: #### B MP #### [facility] [address] [address] [address] Jag Waldrop [facility]on SARS-CoV-2 (COVID-19) RNA PRINCE+probe Ql (Unsp spec) Not detected Normal NOT DETECTED [facility] Comment on above: Result Comment: This test is not yet approved or cleared by the [place] FDA. When there are no FDA-approved or cleared tests available, and other criteria are met, FDA can make tests available under an emergency access mechanism called an Emergency Use Authorization (EUA). The EUA for this test is supported by the [employer]ocational Teacher of Health and Human Service's (HHS's) declaration [...] Performed By: #### L IPID, BMP #### [facility] [address] [address] [address] Jag Waldrop PROF CHEM 8 (BAS METB)on Anion gap [Moles/Vol] 13.3 mmol/L Normal [facility] Comment on above: Performed By: #### B MP #### [facility] [address] [address] [address] Jag Waldrop Calcium [Mass/Vol] 8.7 mg/dL Normal 8.5-10.1 [facility] Comment on above: Performed By: #### B MP #### [facility] [address] [address] [address] Jag Waldrop Chloride [Moles/Vol] 107 mmol/L Normal 98-107 [facility] Comment on above: Performed By: #### B MP #### [facility] [address] [address] [address] Jag Waldrop CO2 [Moles/Vol] 23.2 mmol/L Normal 21.0-32.0 [facility] Comment on above: Performed By: #### B MP #### [facility] [address] [address] [address] Jag Waldrop Creatinine [Mass/Vol] 1.55 mg/dL Critically high 0.55-1.02 [facility] Comment on above: Performed By: #### B MP #### [facility] [address] [address] [address] Jag Waldrop EGFR-AF CHILEAN 43 mL/min/1.73m2 Critically low >=60 [facility] Comment on above: Performed By: #### B MP #### [facility] [address] [address] [address] Jag Waldrop EGFR-NON AF CHILEAN 35 mL/min/1.73m2 Critically low >=60 [facility] Comment on above: Performed By: #### B MP #### [facility] [address] [address] [address] Jag Waldrop Glucose [Mass/Vol] 123 mg/dL Critically high 74-106 [facility] Comment on above: Performed By: #### B MP #### [facility] [address] [address] [address] Jag Waldrop Potassium [Moles/Vol] 4.5 mmol/L Normal 3.5-5.1 [facility] Comment on above: Performed By: #### B MP #### [facility] [address] [address] [address] Jag Waldrop Sodium [Moles/Vol] 139 mmol/L Normal 136-145 [facility] Comment on above: Performed By: #### B MP #### [facility] [address] [address] [address] Jag Waldrop Urea nitrogen [Mass/Vol] 36.0 mg/dL Critically high 7.0-18.0 [facility] Comment on above: Performed By: #### B MP #### [facility] [address] [address] [address] Jag Waldrop Urea nitrogen/Creatinine [Mass ratio] 23.2 mg/mg Normal [facility] Comment on above: Performed By: #### B MP #### [facility] [address] [address] [address] Jag Waldrop SED RATE [facility] 2021 SED RATE 26 mm/hr Normal <=30 [facility] Comment on above: Performed By: #### S EDR #### [facility] [address] [address] [address] Jag Waldrop XR CHEST 2 Von [...] ALEX ALLEN Date: 2021-12-21 18:35 Normal [facility] OVA AND PARASITE EXAMINATION on 12-06-2021 Ova + Parasite Exam Final report Normal [facility] Comment on above: Result Comment: Thes e results were obtained using wet preparation(s) and trichrome stained smear. This test does not include testing for Cryptosporidium parvum, Cyclospora, or Microsporidia. Performed By: #### L IPID, BMP #### [facility] [address] [address] [address] Jag Waldrop Result 1 Comment Normal [facility] Comment on above: Result Comment: No o va, cysts, or parasites seen. . One negative specimen does not rule out the possibility of a parasitic infection. Performed By: #### L IPID, BMP #### [facility] [address] [address] [address] Jag Waldrop STOOL CULTUREon 12-05-2021 Campylobacter Culture Final report [facility] Comment on above: Performed By: #### C XSTOOL #### [facility] [address] [place] [address] Dr. Jag Waldrop E coli Shiga Toxin EIA Negative Normal Negative [facility] Comment on above: Performed By: #### C XSTOOL #### [facility] [address] [address] [address] Jag Waldrop Result 1 Comment Normal [facility] Comment on above: Result Comment: No S almonella or Shigella recovered. Performed By: #### C XSTOOL #### [facility] [address] [place] [address] Dr. Jag Waldrop Result Comment: No C ampylobacter species isolated. Salmonella/Shigella Screen Final report Normal [facility] Comment on above: Performed By: #### C XSTOOL #### [facility] [address] [address] [address] Jag Waldrop GI PANEL (PCR)on 11-30-2021 Adenovirus F 40/41 Not detected Normal NOT DETECTED [facility] Comment on above: Performed By: #### E RUR #### [facility] [address] [place] [address] Dr. Jag Waldrop Astrovirus Not detected Normal NOT DETECTED [facility] Comment on above: Performed By: #### E RUR #### [facility] [address] [place] [address] Dr. Jag Waldrop C. Diff toxin A/B Detected Critically abnormal NOT DETECTED [facility] Comment on above: Performed By: #### E RUR #### [facility] [address] [place] [address] Dr. Jag Waldrop Campylobacter Not detected Normal NOT DETECTED [facility] Comment on above: Performed By: #### E RUR #### [facility] [address] [place] [address] Dr. Jag Waldrop Cryptosporidium Not detected Normal NOT DETECTED [facility] Comment on above: Performed By: #### E RUR #### [facility] [address] [place] [address] Dr. Jag Waldrop Cyclos. Cayetanensis Not detected Normal NOT DETECTED [facility] Comment on above: Performed By: #### E RUR #### [facility] [address] [place] [address] Dr. Jag Waldrop E. Coli O157 Not Applicable Normal Not Applicable [facility] Comment on above: Performed By: #### E RUR #### [facility] [address] [place] [address] Dr. Jag Waldrop E. histolytica Not detected Normal NOT DETECTED [facility] Comment on above: Performed By: #### E RUR #### [facility] [address] [place] [address] Dr. Jag Waldrop EAEC Not detected Normal NOT DETECTED [facility] Comment on above: Performed By: #### E RUR #### [facility] [address] [place] [address] Dr. Jag Waldrop EIEC Not detected Normal NOT DETECTED [facility] Comment on above: Performed By: #### E RUR #### [facility] [address] [place] [address] Dr. Jag Waldrop EPEC Not detected Normal NOT DETECTED [facility] Comment on above: Performed By: #### E RUR #### [facility] [address] [place] [address] Dr. Jag Waldrop ETEC Not detected Normal NOT DETECTED [facility] Comment on above: Performed By: #### E RUR #### [facility] [address] [address] [address] Jag Bajwa Not detected Normal NOT DETECTED [facility] Comment on above: Performed By: #### E RUR #### [facility] [address] [address] [address] Jag TANG CONTROLS PASSED Normal [facility] Comment on above: Performed By: #### E RUR #### [facility] [address] [address] [address] Jag TEJEDA HEADER GI PANEL BACTERIA Normal T [facility] Comment on above: Performed By: #### E RUR #### [facility] [address] [place] [address] Dr. Jag SANCHEZ ECOLI GI PANEL DIARRHEAGEN IC E.COLI / SHIGELLA Normal [facility] Comment on above: Performed By: #### E RUR #### [facility] [address] [place] [address] Dr. Jag SANCHEZ INFO SEE BELOW Normal [facility] Comment on above: Result Comment: EAEC - Enteroaggregative E. Coli EPEC- Enteropathogenic E. Coli ETEC- Enterotoxigenic E. Coli lt/st STEC- Shigella-like toxin-producing E. Coli stx1/stx2 EIEC- Shigella/Enteroinvasive E. Coli Performed By: #### E RUR #### [facility] [address] [place] [address] Dr. Jag SANCHEZ PARASITES GI PANEL PARASITES Normal [facility] Comment on above: Performed By: #### E RUR #### [facility] [address] [place] [address] Dr. Jag SANCHEZ VIRUS GI PANEL VIRUSES Normal [facility] Comment on above: Performed By: #### E RUR #### [facility] [address] [place] [address] Dr. Jag Waldrop Norovirus GI/GII Not detected Normal NOT DETECTED [facility] Comment on above: Performed By: #### E RUR #### [facility] [address] [place] [address] Dr. Jag Waldrop P. Shigelloides Not detected Normal NOT DETECTED [facility] Comment on above: Performed By: #### E RUR #### [facility] [address] [place] [address] Dr. Jag Waldrop Rotavirus A Not detected Normal NOT DETECTED [facility] Comment on above: Performed By: #### E RUR #### [facility] [address] [place] [address] Dr. Jag Waldrop Salmonella Not detected Normal NOT DETECTED [facility] Comment on above: Performed By: #### E RUR #### [facility] [address] [place] [address] Dr. Jag Waldrop Sapovirus Not detected Normal NOT DETECTED [facility] Comment on above: Performed By: #### E RUR #### [facility] [address] [place] [address] Dr. Jag Waldrop STEC Not detected Normal NOT DETECTED [facility] Comment on above: Performed By: #### E RUR #### [facility] [address] [place] [address] Dr. Jag Waldrop Vibrio Not detected Normal NOT DETECTED [facility] Comment on above: Performed By: #### E RUR #### [facility] [address] [place] [address] Dr. Jag Waldrop Vibrio Cholera Not detected Normal NOT DETECTED [facility] Comment on above: Performed By: #### E RUR #### [facility] [address] [place] [address] Dr. Jag Waldrop Y. Enterocolitica Not detected Normal NOT DETECTED [facility] Comment on above: Performed By: #### E RUR #### [facility] [address] [place] [address] Dr. Jag Waldrop OCC BLD IMMUNO SCREENon 11-14 OCCULT BLOOD Negative Normal NEGATIVE [facility] Comment on above: Performed By: #### L IPID, BMP #### [facility] [address] [address] [address] Jag Waldrop PROF CHEM 8 (BAS METB)on Anion gap [Moles/Vol] 15.5 mmol/L Normal [facility] Comment on above: Performed By: #### P OCGLUC #### [facility] [address] [address] [address] Jag Waldrop Calcium [Mass/Vol] 9.1 mg/dL Normal 8.5-10.1 [facility] Comment on above: Performed By: #### P OCGLUC #### [facility] [address] [address] [address] Jag Waldrop Chloride [Moles/Vol] 106 mmol/L Normal 98-107 [facility] Comment on above: Performed By: #### P OCGLUC #### [facility] [address] [address] [address] Jag Waldrop CO2 [Moles/Vol] 25.4 mmol/L Normal 21.0-32.0 [facility] Comment on above: Performed By: #### P OCGLUC #### [facility] [address] [address] [address] Jag Waldrop Creatinine [Mass/Vol] 1.18 mg/dL Critically high 0.55-1.02 [facility] Comment on above: Performed By: #### P OCGLUC #### [facility] [address] [address] [address] Jag Waldrop EGFR-AF CHILEAN 59 mL/min/1.73m2 Critically low >=60 [facility] Comment on above: Performed By: #### P OCGLUC #### [facility] [address] [address] [address] Jag Waldrop EGFR-NON AF CHILEAN 48 mL/min/1.73m2 Critically low >=60 [facility] Comment on above: Performed By: #### P OCGLUC #### [facility] [address] [address] [address] Jag Waldrop Glucose [Mass/Vol] 141 mg/dL Critically high 74-106 [facility] Comment on above: Performed By: #### P OCGLUC #### [facility] [address] [address] [address] Jag Waldrop Potassium [Moles/Vol] 3.9 mmol/L Normal 3.5-5.1 [facility] Comment on above: Performed By: #### P OCGLUC #### [facility] [address] [address] [address] Jag Waldrop Sodium [Moles/Vol] 143 mmol/L Normal 136-145 [facility] Comment on above: Performed By: #### P OCGLUC #### [facility] [address] [address] [address] Jag Waldrop Urea nitrogen [Mass/Vol] 22.0 mg/dL Critically high 7.0-18.0 [facility] Comment on above: Performed By: #### P OCGLUC #### [facility] [address] [address] [address] Jag Waldrop Urea nitrogen/Creatinine [Mass ratio] 18.6 mg/mg Normal [facility] Comment on above: Performed By: #### P OCGLUC #### [facility] [address] [place] [address] Dr. Jag Waldrop XR KUB 1 VIEWon [...] ALEX ALLEN Date: 2021-10-29 09:01 Normal [facility] CULTURE URINEon 10-28-2021 CULTURE URINE Culture Observations : LIGHT GROWTH OF MIXED GENITAL SANDEE. NO POTENTIAL PATHOGENS SEEN. Normal [facility] Comment on above: Performed By: #### E RUR #### [facility] [address] [address] [address] Jag Waldrop GLYCOHEMOGLOBIN A1Con 2021 ADA RECOMMENDATION SEE BELOW Normal [facility] Comment on above: Result Comment: ADA RECOMMENDED LIMIT 4.0 - 6.0 ADA THERAPEUTIC TARGET < 7.0 ACTION SUGGESTED > 7.0 Performed By: #### E RUR #### [facility] [address] [address] [address] Jag Waldrop Glucose [Mass/Vol] 157 mg/dL Normal [facility] Comment on above: Performed By: #### E RUR #### [facility] [address] [address] [address] Jag Waldrop HbA1c (Bld) [Mass fraction] 7.1 % Critically high 4.5-6.2 [facility] Comment on above: Performed By: #### E RUR #### [facility] [address] [place] [address] Dr. Jag Waldrop LIPID PROFILEon 10-28-2021 CHOL-HDL RATIO NORM SEE BELOW Normal [facility] Comment on above: Result Comment: 3.3 - 4.4 LOW RISK 4.4 - 7.1 AVERAGE RISK 7.1 - 11.0 MODERATE RISK >11.0 HIGH RISK Performed By: #### P OCGLUC #### [facility] [address] [place] [address] Dr. Jag Waldrop Cholesterol [Mass/Vol] 150 mg/dL Normal <=200 [facility] Comment on above: Performed By: #### P OCGLUC #### [facility] [address] [address] [address] Jag Waldrop Cholesterol in HDL [Mass/Vol] 39 mg/dL Critically low 40-60 [facility] Comment on above: Performed By: #### P OCGLUC #### [facility] [address] [address] [address] Jag Waldrop Cholesterol in LDL [Mass/Vol] 82.6 mg/dL Normal [facility] Comment on above: Performed By: #### P OCGLUC #### [facility] [address] [place] [address] Dr. Jag Waldrop Cholesterol.total/C holesterol in HDL [Mass ratio] 3.8 {ratio} Normal [facility] Comment on above: Performed By: #### P OCGLUC #### [facility] [address] [address] [address] Jag Waldrop HDL NORMAL > or = 60 mg/dl - LO W CARDIOVASCULAR RISK <40 mg/dl - HIGH CARDIOVASCULAR RISK Normal [facility] Comment on above: Performed By: #### P OCGLUC #### [facility] [address] [address] [address] Jag Waldrop LDL CALC NORMAL SEE BELOW Normal [facility] Comment on above: Result Comment: <100 mg/dl OPTIMAL 100 - 129 mg/dl NEAR OR ABOVE OPTIMAL 130 - 159 mg/dl BORDERLINE HIGH 160 - 189 mg/dl HIGH >190 mg/dl VERY HIGH Performed By: #### P OCGLUC #### [facility] [address] [address] [address] Jag Waldrop Triglyceride [Mass/Vol] 142 mg/dL Normal <=150 [facility] Comment on above: Performed By: #### P OCGLUC #### [facility] [address] [address] [address] Jag Waldrop VLDL CALC 28.4 mg/dL Normal [facility] Comment on above: Performed By: #### P OCGLUC #### [facility] [address] [address] [address] Jag Waldrop PROF CHEM 8 (BAS METB)on Anion gap [Moles/Vol] 16.0 mmol/L Normal [facility] Comment on above: Performed By: #### P OCGLUC #### [facility] [address] [address] [address] Jag Waldrop Calcium [Mass/Vol] 8.7 mg/dL Normal 8.5-10.1 [facility] Comment on above: Performed By: #### P OCGLUC #### [facility] [address] [address] [address] Jag Waldrop Chloride [Moles/Vol] 108 mmol/L Critically high 98-107 [facility] Comment on above: Performed By: #### P OCGLUC #### [facility] [address] [address] [address] Jag Waldrop CO2 [Moles/Vol] 22.1 mmol/L Normal 21.0-32.0 [facility] Comment on above: Performed By: #### P OCGLUC #### [facility] [address] [address] [address] Jag Waldrop Creatinine [Mass/Vol] 1.72 mg/dL Critically high 0.55-1.02 [facility] Comment on above: Performed By: #### P OCGLUC #### [facility] [address] [address] [address] Jag Waldrop EGFR-AF CHILEAN 38 mL/min/1.73m2 Critically low >=60 [facility] Comment on above: Performed By: #### P OCGLUC #### [facility] [address] [address] [address] Jag Waldrop EGFR-NON AF CHILEAN 31 mL/min/1.73m2 Critically low >=60 [facility] Comment on above: Performed By: #### P OCGLUC #### [facility] [address] [address] [address] Jag Waldrop Glucose [Mass/Vol] 144 mg/dL Critically high 74-106 [facility] Comment on above: Performed By: #### P OCGLUC #### [facility] [address] [address] [address] Jag Waldrop Potassium [Moles/Vol] 5.1 mmol/L Normal 3.5-5.1 [facility] Comment on above: Performed By: #### P OCGLUC #### [facility] [address] [address] [address] Jag Waldrop Sodium [Moles/Vol] 141 mmol/L Normal 136-145 [facility] Comment on above: Performed By: #### P OCGLUC #### [facility] [address] [address] [address] Jag Waldrop Urea nitrogen [Mass/Vol] 41.0 mg/dL Critically high 7.0-18.0 [facility] Comment on above: Performed By: #### P OCGLUC #### [facility] [address] [place] [address] Dr. Jag Waldrop Urea nitrogen/Creatinine [Mass ratio] 23.8 mg/mg Normal [facility] Comment on above: Performed By: #### P OCGLUC #### [facility] [address] [place] [address] Dr. 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 Jag Waldrop Clarity (U) SL CLOUDY Abnormal CLEAR [facility] Comment on above: Performed By: #### L IPID, BMP #### [facility] [address] [place] [address] Dr. Jag Waldrop Color (U) LT. YELLOW Normal YELLOW [facility] Comment on above: Performed By: #### L IPID, BMP #### [facility] [address] [place] [address] Dr. Jag Waldrop Glucose Ql (U) Negative Normal NEGATIVE [facility] Comment on above: Performed By: #### L IPID, BMP #### [facility] [address] [place] [address] Dr. Jag Waldrop Hemoglobin Ql (U) TRACE-INTACT Abnormal NEGATIVE [facility] Comment on above: Performed By: #### L IPID, BMP #### [facility] [address] [place] [address] Dr. Jag Waldrop Ketones Ql (U) Negative Normal NEGATIVE [facility] Comment on above: Performed By: #### L IPID, BMP #### [facility] [address] [place] [address] Dr. Jag Waldrop LEUKOCYTES SMALL Abnormal NEGATIVE [facility] Comment on above: Performed By: #### L IPID, BMP #### [facility] [address] [place] [address] Dr. Jag Waldrop Nitrite Ql (U) Negative Normal NEGATIVE [facility] Comment on above: Performed By: #### L IPID, BMP #### [facility] [address] [place] [address] Dr. Jag Waldrop pH (U) 5.5 [pH] Normal 5-9 [facility] Comment on above: Performed By: #### L IPID, BMP #### [facility] [address] [place] [address] Dr. Jag Waldrop SPEC GRAVITY 1.020 Normal 1.005-<=1.025 [facility] Comment on above: Performed By: #### L IPID, BMP #### [facility] [address] [place] [address] Dr. Jag Waldrop UA PROTEIN Negative Normal NEGATIVE/ TRACE [facility] Comment on above: Performed By: #### L IPID, BMP #### [facility] [address] [place] [address] Dr. Jag Waldrop UR MICRO IND INDICATED Normal [facility] Comment on above: Performed By: #### L IPID, BMP #### [facility] [address] [place] [address] Dr. Jag Waldrop Urobilinogen Qn (U) 0.2 {Chris'U}/dL Normal 0.2 - 1. 0 [facility] Comment on above: Performed By: #### L IPID, BMP #### [facility] [address] [place] [address] Dr. Jag Waldrop URINE MICROSCOPIC ONLYon BACTERIA TRACE Abnormal NONE SEEN [facility] Comment on above: Performed By: #### L IPID, BMP #### [facility] [address] [place] [address] Dr. Jag Waldrop Bacteria identified Cx Nom (U) INDICATED Normal [facility] Comment on above: Performed By: #### L IPID, BMP #### [facility] [address] [place] [address] Dr. Jag Waldrop CAST NONE SEEN Normal NONE SEEN [facility] Comment on above: Performed By: #### L IPID, BMP #### [facility] [address] [place] [address] Dr. Jag Waldrop Crystals LM Nom (Urine sed) NONE SEEN Normal NONE SEEN [facility] Comment on above: Performed By: #### L IPID, BMP #### [facility] [address] [place] [address] Dr. Jag Waldrop Epithelial cells LM Ql (Urine sed) RARE Normal NONE SEEN /RARE [facility] Comment on above: Performed By: #### L IPID, BMP #### [facility] [address] [place] [address] Dr. Jag Waldrop MUCOUS TRACE Abnormal NONE SEEN [facility] Comment on above: Performed By: #### L IPID, BMP #### [facility] [address] [place] [address] Dr. Jag Waldrop RBC 0-2 Normal 0-2 [facility] Comment on above: Performed By: #### L IPID, BMP #### [facility] [address] [place] [address] Dr. Jag Waldrop WBC 2-5 Abnormal NONE SEEN [facility] Comment on above: Performed By: #### L IPID, BMP #### [facility] [address] [place] [address] Dr. Jag Waldrop BNPon 10-02-2021 Natriuretic peptide B (Bld) [Mass/Vol] 52.0 pg/mL Normal <=900.0 [facility] Comment on above: Performed By: #### L IPID, BMP #### [facility] [address] [place] [address] Dr. Jag Waldrop CBC AUTO DIFFon 10-02-2021 BASO # 0.1 103/ul Normal 0.0-0.1 [facility] Comment on above: Performed By: #### P OCGLUC #### [facility] [address] [place] [address] Dr. Jag Waldrop Basophils/100 WBC (Bld) 0.8 % Normal 0.2-2.0 [facility] Comment on above: Performed By: #### P OCGLUC #### [facility] [address] [place] [address] Dr. Jag Waldrop EO # 0.2 103/ul Normal 0.0-0.7 [facility] Comment on above: Performed By: #### P OCGLUC #### [facility] [address] [place] [address] Dr. Jag Waldrop Eosinophils/100 WBC (Bld) 3.0 % Normal 0.9-7.0 [facility] Comment on above: Performed By: #### P OCGLUC #### [facility] [address] [place] [address] Dr. Jag Waldrop Erythrocyte distribution width (RBC) [Ratio] 14.2 % Normal 11.0-15.0 [facility] Comment on above: Performed By: #### P OCGLUC #### [facility] [address] [place] [address] Dr. Jag Waldrop Hematocrit (Bld) [Volume fraction] 35.9 % Critically low 36.0-48.0 [facility] Comment on above: Performed By: #### P OCGLUC #### [facility] [address] [place] [address] Dr. Jag Waldrop Hemoglobin (Bld) [Mass/Vol] 11.0 g/dL Critically low 12.0-16.0 [facility] Comment on above: Performed By: #### P OCGLUC #### [facility] [address] [place] [address] Dr. Jag Waldrop IG # 0.03 10e3/ul Normal 0.00-0.03 [facility] Comment on above: Performed By: #### P OCGLUC #### [facility] [address] [place] [address] Dr. Jag Waldrop IG % 0.4 % Normal 0.0-0.5 [facility] Comment on above: Performed By: #### P OCGLUC #### [facility] [address] [place] [address] Dr. Jag Waldrop LYMPH # 2.8 103/ul Normal 1.2-3.8 [facility] Comment on above: Performed By: #### P OCGLUC #### [facility] [address] [place] [address] Dr. Jag Waldrop Lymphocytes/100 WBC (Bld) 37.9 % Normal 20.5-60.0 [facility] Comment on above: Performed By: #### P OCGLUC #### [facility] [address] [place] [address] Dr. Jag Waldrop MANUAL DIFF REQ NO Normal [facility] Comment on above: Performed By: #### P OCGLUC #### [facility] [address] [place] [address] Dr. Jag Waldrop MCH (RBC) [Entitic mass] 28.7 pg Normal 26.7-34.0 [facility] Comment on above: Performed By: #### P OCGLUC #### [facility] [address] [place] [address] Dr. Jag Waldrop MCHC (RBC) [Mass/Vol] 30.6 g/dL Normal 29.9-35.2 [facility] Comment on above: Performed By: #### P OCGLUC #### [facility] [address] [place] [address] Dr. Jag Waldrop MCV (RBC) [Entitic vol] 93.7 fL Normal 81.0-99.0 [facility] Comment on above: Performed By: #### P OCGLUC #### [facility] [address] [place] [address] Dr. Jag Waldrop MONO # 0.5 103/ul Normal 0.3-0.8 [facility] Comment on above: Performed By: #### P OCGLUC #### [facility] [address] [place] [address] Dr. Jag Waldrop Monocytes/100 WBC (Bld) 7.4 % Normal 1.7-12.0 [facility] Comment on above: Performed By: #### P OCGLUC #### [facility] [address] [place] [address] Dr. Jag Waldrop NEUT # 3.7 103/ul Normal 1.4-6.5 [facility] Comment on above: Performed By: #### P OCGLUC #### [facility] [address] [place] [address] Dr. Jag Waldrop Neutrophils/100 WBC (Bld) 50.5 % Normal 43.0-75.0 [facility] Comment on above: Performed By: #### P OCGLUC #### [facility] [address] [address] [address] Jag Waldrop Platelet mean volume (Bld) [Entitic vol] 10.2 fL Normal 9.5-13.5 [facility] Comment on above: Performed By: #### P OCGLUC #### [facility] [address] [address] [address] Jag Waldrop PLT 261 103/ul Normal 150-450 [facility] Comment on above: Performed By: #### P OCGLUC #### [facility] [address] [address] [address] Jag Waldrop RBC 3.83 106/ul Critically low 4.20-5.40 [facility] Comment on above: Performed By: #### P OCGLUC #### [facility] [address] [address] [address] Jag Waldrop WBC 7.3 103/ul Normal 4.0-11.0 [facility] Comment on above: Performed By: #### P OCGLUC #### [facility] [address] [place] [address] Dr. Jag Waldrop POINT OF CARE GLUCOSEon 09-14 Glucose [Mass/Vol] 156 mg/dL Critically high 74-106 [facility] Comment on above: Performed By: #### P OCGLUC #### [facility] [address] [address] [address] Jag Waldrop Glucose [Mass/Vol] 304 mg/dL Critically high 74-106 [facility] Comment on above: Performed By: #### P OCGLUC #### [facility] [address] [address] [address] Jag Waldrop Glucose [Mass/Vol] 77 mg/dL Normal 74-106 [facility] Comment on above: Performed By: #### E RUR #### [facility] [address] [address] [address] Jag Waldrop Glucose [Mass/Vol] 136 mg/dL Critically high 74-106 [facility] Comment on above: Performed By: #### E RUR #### [facility] [address] [address] [address] Jag Waldrop Glucose [Mass/Vol] 73 mg/dL Critically low 74-106 [facility] Comment on above: Performed By: #### E RUR #### [facility] [address] [address] [address] Jag Waldrop PROF CHEM 8 (BAS METB)on Anion gap [Moles/Vol] 15.5 mmol/L Normal [facility] Comment on above: Performed By: #### P OCGLUC #### [facility] [address] [place] [address] Dr. Jag Waldrop Calcium [Mass/Vol] 8.3 mg/dL Critically low 8.5-10.1 [facility] Comment on above: Performed By: #### P OCGLUC #### [facility] [address] [place] [address] Dr. Jag Waldrop Chloride [Moles/Vol] 108 mmol/L Critically high 98-107 [facility] Comment on above: Performed By: #### P OCGLUC #### [facility] [address] [place] [address] Dr. Jag Waldrop CO2 [Moles/Vol] 18.9 mmol/L Critically low 21.0-32.0 [facility] Comment on above: Performed By: #### P OCGLUC #### [facility] [address] [place] [address] Dr. Jag Waldrop Creatinine [Mass/Vol] 1.43 mg/dL Critically high 0.55-1.02 [facility] Comment on above: Performed By: #### P OCGLUC #### [facility] [address] [place] [address] Dr. Jag Waldrop EGFR-AF CHILEAN 47 mL/min/1.73m2 Critically low >=60 [facility] Comment on above: Performed By: #### P OCGLUC #### [facility] [address] [place] [address] Dr. Jag Waldrop EGFR-NON AF CHILEAN 39 mL/min/1.73m2 Critically low >=60 [facility] Comment on above: Performed By: #### P OCGLUC #### [facility] [address] [address] [address] Jag Waldrop Glucose [Mass/Vol] 269 mg/dL Critically high 74-106 [facility] Comment on above: Performed By: #### P OCGLUC #### [facility] [address] [address] [address] Jag Waldrop Potassium [Moles/Vol] 5.4 mmol/L Critically high 3.5-5.1 [facility] Comment on above: Performed By: #### P OCGLUC #### [facility] [address] [place] [address] Dr. Jag Waldrop Sodium [Moles/Vol] 137 mmol/L Normal 136-145 [facility] Comment on above: Performed By: #### P OCGLUC #### [facility] [address] [address] [address] Jag Waldrop Urea nitrogen [Mass/Vol] 40.0 mg/dL Critically high 7.0-18.0 [facility] Comment on above: Performed By: #### P OCGLUC #### [facility] [address] [place] [address] Dr. Jag Waldrop Urea nitrogen/Creatinine [Mass ratio] 28.0 mg/mg Normal [facility] Comment on above: Performed By: #### P OCGLUC #### [facility] [address] [address] [address] Jag Waldrop Anion gap [Moles/Vol] 14.0 mmol/L Normal [facility] Comment on above: Performed By: #### E RUR #### [facility] [address] [place] [address] Dr. Jag Waldrop Calcium [Mass/Vol] 8.9 mg/dL Normal 8.5-10.1 [facility] Comment on above: Performed By: #### E RUR #### [facility] [address] [address] [address] Jag Waldrop Chloride [Moles/Vol] 110 mmol/L Critically high 98-107 [facility] Comment on above: Performed By: #### E RUR #### [facility] [address] [address] [address] Jag Waldrop CO2 [Moles/Vol] 21.1 mmol/L Normal 21.0-32.0 [facility] Comment on above: Performed By: #### E RUR #### [facility] [address] [address] [address] Jag Waldrop Creatinine [Mass/Vol] 1.32 mg/dL Critically high 0.55-1.02 [facility] Comment on above: Performed By: #### E RUR #### [facility] [address] [place] [address] Dr. Jag Waldrop EGFR-AF CHILEAN 52 mL/min/1.73m2 Critically low >=60 [facility] Comment on above: Performed By: #### E RUR #### [facility] [address] [place] [address] Dr. Jag Waldrop EGFR-NON AF CHILEAN 43 mL/min/1.73m2 Critically low >=60 [facility] Comment on above: Performed By: #### E RUR #### [facility] [address] [place] [address] Dr. Jag Waldrop Glucose [Mass/Vol] 79 mg/dL Normal 74-106 [facility] Comment on above: Performed By: #### E RUR #### [facility] [address] [address] [address] Jag Waldrop Potassium [Moles/Vol] 6.1 mmol/L Critically high 3.5-5.1 [facility] Comment on above: Result Comment: Test Repeated. Critical Value Verified Performed By: #### E RUR #### [facility] [address] [place] [address] Dr. Jag Waldrop Sodium [Moles/Vol] 140 mmol/L Normal 136-145 [facility] Comment on above: Performed By: #### E RUR #### [facility] [address] [address] [address] Jag Waldrop Urea nitrogen [Mass/Vol] 45.0 mg/dL Critically high 7.0-18.0 [facility] Comment on above: Performed By: #### E RUR #### [facility] [address] [address] [address] Jag Waldrop Urea nitrogen/Creatinine [Mass ratio] 34.1 mg/mg Normal [facility] Comment on above: Performed By: #### E RUR #### [facility] [address] [address] [address] Jag Waldrop BASIC METABOLIC PANELon 08-14 Calcium [Mass/Vol] 8.9 mg/dL Normal 8.6-10.3 [facility] Comment on above: Order Comment: No: D o not add to previous draw Performed By: #### 5 [id number], [id number] #### [facility] [address] [place] [address], [place] Chloride [Moles/Vol] 105 mmol/L Normal 98-107 [facility] Comment on above: Order Comment: No: D o not add to previous draw Performed By: #### 5 6101, [id number] #### [facility] [address] [place] [address], [place] CO2 [Moles/Vol] 26 mmol/L Normal 21-31 [facility] Comment on above: Order Comment: No: D o not add to previous draw Performed By: #### 5 [id number], [id number] #### [facility] [address] [place] [address], [place] Creatinine [Mass/Vol] 0.99 mg/dL Normal 0.60-1.20 [facility] Comment on above: Order Comment: No: D o not add to previous draw Performed By: #### 5 [id number], [id number] #### [facility] [address] [place] [address], [place] GFR/1.73 sq M predicted among blacks MDRD (S/P/Bld) [Vol rate/Area] mL/min/{1.73_m2} Normal >60 [facility] Comment on above: Order Comment: No: D o not add to previous draw Performed By: #### 5 610, 15893 #### [facility] [address] [place] [address], [place] GFR/1.73 sq M predicted among non-blacks MDRD (S/P/Bld) [Vol rate/Area] mL/min/{1.73_m2} Normal >60 [facility] Comment on above: Order Comment: No: D o not add to previous draw Performed By: #### 5 610, 35317 #### [facility] [address] [place] [address], [place] Glucose [Mass/Vol] 145 mg/dL High 70-100 [facility] Comment on above: Order Comment: No: D o not add to previous draw Performed By: #### 5 610, 70121 #### [facility] [address] [place] [address], [place] Potassium [Moles/Vol] 3.7 mmol/L Normal 3.5-5.1 [facility] Comment on above: Order Comment: No: D o not add to previous draw Performed By: #### 5 610, 40105 #### [facility] [address] [place] [address], [place] Sodium [Moles/Vol] 139 mmol/L Normal 136-145 [facility] Comment on above: Order Comment: No: D o not add to previous draw Performed By: #### 5 610, 99989 #### [facility] [address] [place] [address], [place] Urea nitrogen [Mass/Vol] 26 mg/dL High 7-25 [facility] Comment on above: Order Comment: No: D o not add to previous draw Performed By: #### 5 610, 70895 #### [facility] [address] [place] [address], [place] CBC W/DIFFon 08-25-2018 ABS BASOPHILS 0.0 10*3/uL Normal 0.0-0.2 [facility] Comment on above: Order Comment: No: D o not add to previous draw Performed By: #### 5 610, 59142 #### [facility] [address] [place] [address], [facility] ABS IMM GRANS 0.0 10*3/uL Normal 0.0-0.2 [facility] Comment on above: Order Comment: No: D o not add to previous draw Performed By: #### 5 610, 94280 #### [facility] [address] [place] [address], [facility] ABS NEUTROPHILS 2.3 10*3/uL Normal 1.6-7.6 [facility] Comment on above: Order Comment: No: D o not add to previous draw Performed By: #### 5 610, 47458 #### [facility] [address] [place] [address], [facility] Basophils/100 WBC (Bld) 0.3 % Normal 0.0-1.0 [facility] Comment on above: Order Comment: No: D o not add to previous draw Performed By: #### 5 610, 75477 #### [facility] [address] [place] [address], [facility] Eosinophils (Bld) [#/Vol] 0.0 10*3/uL Normal 0.0-0.5 [facility] Comment on above: Order Comment: No: D o not add to previous draw Performed By: #### 5 610, 84323 #### [facility] [address] [place] [address], [facility] Eosinophils/100 WBC (Bld) 0.0 % Normal 0.0-6.0 [facility] Comment on above: Order Comment: No: D o not add to previous draw Performed By: #### 5 610, 83222 #### [facility] [address] Erythrocyte distribution width (RBC) [Ratio] 13.3 % Normal 11.5-15.0 [facility] Comment on above: Order Comment: No: D o not add to previous draw Performed By: #### 5 6100, 62668 #### [facility] [address] [place] [address], [facility] Hematocrit (Bld) [Volume fraction] 37.7 % Normal 36.0-45.0 [facility] Comment on above: Order Comment: No: D o not add to previous draw Performed By: #### 5 6100, 35491 #### [facility] [address] [place] [address], [facility] Hemoglobin (Bld) [Mass/Vol] 12.1 g/dL Normal 12.0-15.0 [facility] Comment on above: Order Comment: No: D o not add to previous draw Performed By: #### 5 6100, 03081 #### [facility] [address] [place] [address], [facility] IMMATURE GRANS 0.2 % Normal 0.0-1.0 [facility] Comment on above: Order Comment: No: D o not add to previous draw Performed By: #### 5 6100, 15111 #### [facility] [address] [place] [address], [facility] Lymphocytes (Bld) [#/Vol] 3.0 10*3/uL Normal 1.2-4.0 [facility] Comment on above: Order Comment: No: D o not add to previous draw Performed By: #### 5 6100, 51238 #### [facility] [address] [place] [address], [facility] Lymphocytes/100 WBC (Bld) 52.0 % High 20.0-45.0 [facility] Comment on above: Order Comment: No: D o not add to previous draw Performed By: #### 5 6100, 83239 #### [facility] [address] [place] [id number], [facility] MCH (RBC) [Entitic mass] 28.7 pg Normal 27.0-33.0 [facility] Comment on above: Order Comment: No: D o not add to previous draw Performed By: #### 5 6100, 24509 #### [facility] [address] [place] [id number], [facility] MCHC (RBC) [Mass/Vol] 32.1 g/dL Normal 32.0-35.0 [facility] Comment on above: Order Comment: No: D o not add to previous draw Performed By: #### 5 6100, 25889 #### [facility] [address] [place] [id number], [facility] MCV (RBC) [Entitic vol] 89.3 fL Normal 82.0-98.0 [facility] Comment on above: Order Comment: No: D o not add to previous draw Performed By: #### 5 6100, 78178 #### [facility] [address] [place] [address], [facility] Monocytes (Bld) [#/Vol] 0.5 10*3/uL Normal 0.1-1.0 [facility] Comment on above: Order Comment: No: D o not add to previous draw Performed By: #### 5 6100, 21011 #### [facility] [address] [place] [address], [facility] MONOS 7.9 % Normal 5.0-12.0 [facility] Comment on above: Order Comment: No: D o not add to previous draw Performed By: #### 5 6100, 10200 #### [facility] [address] [place] [address], [facility] Neutrophils/100 WBC (Bld) 39.6 % Low 40.0-72.0 [facility] Comment on above: Order Comment: No: D o not add to previous draw Performed By: #### 5 6100, 05230 #### [facility] [address] [place] [address], [facility] Nucleated RBC/100 WBC (Bld) [Ratio] 0 % Normal 0-0 [facility] Comment on above: Order Comment: No: D o not add to previous draw Performed By: #### 5 6100, 08167 #### [facility] [address] [place] [address], [facility] PLAT CNT 236 10*3/uL Normal 150-400 [facility] Comment on above: Order Comment: No: D o not add to previous draw Performed By: #### 5 6100, 56259 #### [facility] [address] [place] [address], [facility] RBC (Bld) [#/Vol] 4.22 10*6/uL Normal 3.80-5.00 [facility] Comment on above: Order Comment: No: D o not add to previous draw Performed By: #### 5 6100, 08357 #### [facility] [address] [place] [address], [facility] WBC (Bld) [#/Vol] 5.85 10*3/uL Normal 4.00-10.60 [facility] Comment on above: Order Comment: No: D o not add to previous draw Performed By: #### 5 6100, 56305 #### [facility] [address] POC GLUCOSE LABon 08-25-2018 Glucose [Mass/Vol] 180 mg/dL High 70-100 [facility] Comment on above: Performed By: #### 5 6100, 93182 #### [facility] [address] [place] [address], [facility] Glucose [Mass/Vol] 129 mg/dL High 70-100 [facility] Comment on above: Performed By: #### 5 6100, 60495 #### [facility] [address] [place] [address], [facility] Glucose [Mass/Vol] 132 mg/dL High 70-100 [facility] Comment on above: Performed By: #### 5 [id number] #### [facility] [address] [place] [address], [facility] UFH HEPARIN ASSAYon 08-26-19 19 UNFRACTIONATED HEPARIN <0.10 Critically low 0.30-0.70 [facility] Comment on above: Result Comment: Saline roxaban and Apixaban will interfere with the anti Xa assay used to monitor UFH and LMWH. RESULTS CHECKED AND CALLED. ACCURATELY READ BACK BY JANENE ZAMARRIPA RN AT 0554 Performed By: #### 5 6101, 93723 #### [facility] [address] [place] [address], [facility] BASIC METABOLIC PANELon 08-14 Calcium [Mass/Vol] 8.5 mg/dL Low 8.6-10.3 [facility] Comment on above: Order Comment: No: D o not add to previous draw Performed By: #### 5 [id number] #### [facility] [address] [place] [address], [facility] Chloride [Moles/Vol] 104 mmol/L Normal 98-107 [facility] Comment on above: Order Comment: No: D o not add to previous draw Performed By: #### 5 [id number] #### [facility] [address] [place] [address], [facility] CO2 [Moles/Vol] 27 mmol/L Normal 21-31 [facility] Comment on above: Order Comment: No: D o not add to previous draw Performed By: #### 5 [id number] #### [facility] [address] [place] [address], [facility] Creatinine [Mass/Vol] 1.13 mg/dL Normal 0.60-1.20 [facility] Comment on above: Order Comment: No: D o not add to previous draw Performed By: #### 5 [id number] #### [facility] [address] [place] [address], [place] GFR/1.73 sq M predicted among blacks MDRD (S/P/Bld) [Vol rate/Area] mL/min/{1.73_m2} Normal >60 [facility] Comment on above: Order Comment: No: D o not add to previous draw Performed By: #### 5 [id number] #### [facility] [address] [place] [address], [place] GFR/1.73 sq M predicted among non-blacks MDRD (S/P/Bld) [Vol rate/Area] 52 ml/min/1.73sq m Abnormal >60 [facility] Comment on above: Order Comment: No: D o not add to previous draw Performed By: #### 5 [id number] #### [facility] [address] [place] [address], [place] Glucose [Mass/Vol] 131 mg/dL High 70-100 [facility] Comment on above: Order Comment: No: D o not add to previous draw Performed By: #### 5 [id number] #### [facility] [address] [place] [address], [place] Potassium [Moles/Vol] 3.9 mmol/L Normal 3.5-5.1 [facility] Comment on above: Order Comment: No: D o not add to previous draw Performed By: #### 5 [id number] #### [facility] [address] [place] [address], [place] Sodium [Moles/Vol] 141 mmol/L Normal 136-145 [facility] Comment on above: Order Comment: No: D o not add to previous draw Performed By: #### 5 [id number] #### [facility] [address] [place] [address], [place] Urea nitrogen [Mass/Vol] 28 mg/dL High 7-25 [facility] Comment on above: Order Comment: No: D o not add to previous draw Performed By: #### 5 [id number] #### [facility] [address] CBC COMPLETE BLOOD COUNTon 08-24-2018 Erythrocyte distribution width (RBC) [Ratio] 13.5 % Normal 11.5-15.0 [facility] Comment on above: Order Comment: No: D o not add to previous draw Performed By: #### 5 [id number] #### [facility] [address] [place] [address], [facility] Hematocrit (Bld) [Volume fraction] 37.1 % Normal 36.0-45.0 [facility] Comment on above: Order Comment: No: D o not add to previous draw Performed By: #### 5 [id number] #### [facility] [address] [place] [address], [facility] Hemoglobin (Bld) [Mass/Vol] 12.2 g/dL Normal 12.0-15.0 [facility] Comment on above: Order Comment: No: D o not add to previous draw Performed By: #### 5 [id number] #### [facility] [address] [place] [address], [facility] MCH (RBC) [Entitic mass] 28.8 pg Normal 27.0-33.0 [facility] Comment on above: Order Comment: No: D o not add to previous draw Performed By: #### 5 [id number] #### [facility] [address] [place] [address], [facility] MCHC (RBC) [Mass/Vol] 32.9 g/dL Normal 32.0-35.0 [facility] Comment on above: Order Comment: No: D o not add to previous draw Performed By: #### 5 [id number] #### [facility] [address] [place] [id number], [facility] MCV (RBC) [Entitic vol] 87.7 fL Normal 82.0-98.0 [facility] Comment on above: Order Comment: No: D o not add to previous draw Performed By: #### 5 [id number] #### [facility] [address] [place] [address], [facility] Nucleated RBC/100 WBC (Bld) [Ratio] 0 % Normal 0-0 [facility] Comment on above: Order Comment: No: D o not add to previous draw Performed By: #### 5 [id number] #### [facility] [address] [place] [address], [facility] PLAT CNT 251 10*3/uL Normal 150-400 [facility] Comment on above: Order Comment: No: D o not add to previous draw Performed By: #### 5 [id number] #### [facility] [address] [place] [address], [facility] RBC (Bld) [#/Vol] 4.23 10*6/uL Normal 3.80-5.00 [facility] Comment on above: Order Comment: No: D o not add to previous draw Performed By: #### 5 [id number] #### [facility] [address] [place] [address], [facility] WBC (Bld) [#/Vol] 8.42 10*3/uL Normal 4.00-10.60 [facility] Comment on above: Order Comment: No: D o not add to previous draw Performed By: #### 5 [id number] #### [facility] [address] Cardiovascular Lab Reporton 08-24-2018 Cardiovascular Lab Report [facility] Patient Name: Petr [facility] A MR #: [id number] Department of Physician: Marshall Torres M.D. Division of Service Date: 08/23/2018 Cardiology Birthdate: 1970 Adult Cardiovascular Room #: 3AB [id number] [facility] [place] [address] Cardiovascular Laboratory Report FINAL IMPRESSION: 1. Mild [...] 5. Follow up with me in the [facility] post discharge. 6. Further recommendations deferred to [...] the left radial artery was obtained. A 6-Hungarian Glidesheath was inserted without difficulty. Bilateral selective [...] 30% stenosis adjacent to a prominent septal rn eligibility. There are luminal irregularities throughout the remainder [...] Godoy M.D. Date Trans: 08/24/2018 06:37 A/yadira [id number] cc: Geovanni Myers D.O. [address] [facility] [address] Normal [facility] HIP RIGHT 1 OR 2 VWS WITH PE LVISon 08-24-2018 HIP RIGHT 1 OR 2 VWS WITH PELVIS [facility] Department of Radiology [address] [place] [id number] ===== Patient Name: SHERLY HUMPHREYS : 1970 Sex: F Age: Race: White Pt. Location: [id number] Patient Status: D Ordered Date: 08/24/2018 12:30:00 [...] findings. Electronically signed by:Kristy Jones. Transcribed by: [email or web address], User Resident: DL GOLDBERG Electronically Signed by: KRISTY JONES @ 08/25/2018 08:05 PM I personally read this/these film(s) with this resident Normal [facility] Comment on above: Order Comment: No: D o not add to previous draw POC GLUCOSE LABon 08-24-2018 Glucose [Mass/Vol] 125 mg/dL High 70-100 [facility] Comment on above: Performed By: #### 5 0608 #### [facility] [address] [place] [address], [place] Glucose [Mass/Vol] 150 mg/dL High 70-100 [facility] Comment on above: Performed By: #### 5 0608 #### [facility] [address] [place] [address], [place] Glucose [Mass/Vol] 119 mg/dL High 70-100 [facility] Comment on above: Performed By: #### 5 0608 #### [facility] [address] UFH HEPARIN ASSAYon 08-25-19 19 UNFRACTIONATED HEPARIN <0.10 Critically low 0.30-0.70 [facility] Comment on above: Result Comment: Betty roxaban and Apixaban will interfere with the anti Xa assay used to monitor UFH and LMWH. RESULTS CHECKED AND CALLED. ACCURATELY READ BACK BY JANENE ZAMARRIPA RN AT 0732 Performed By: #### 5 0608 #### [facility] [address] APTTon 08-23-2018 aPTT Coag (Bld) [Time] 38.8 s High 25.0-35.0 [facility] Comment on above: Order Comment: No: [...] THIS PURPOSE. Performed By: #### 5 [id number], [id number] #### [facility] [address] [facility] CBC COMPLETE BLOOD COUNTon 0 08-23-2018 Erythrocyte distribution width (RBC) [Ratio] 13.3 % Normal 11.5-15.0 [facility] Comment on above: Order Comment: No: D o not add to previous draw Performed By: #### 5 0608 #### [facility] [address] Hematocrit (Bld) [Volume fraction] 41.4 % Normal 36.0-45.0 [facility] Comment on above: Order Comment: No: D o not add to previous draw Performed By: #### 5 0608 #### [facility] [address] Hemoglobin (Bld) [Mass/Vol] 13.8 g/dL Normal 12.0-15.0 [facility] Comment on above: Order Comment: No: D o not add to previous draw Performed By: #### 5 0608 #### [facility] [address] [place] [address], [facility] MCH (RBC) [Entitic mass] 29.0 pg Normal 27.0-33.0 [facility] Comment on above: Order Comment: No: D o not add to previous draw Performed By: #### 5 0608 #### [facility] [address] MCHC (RBC) [Mass/Vol] 33.3 g/dL Normal 32.0-35.0 [facility] Comment on above: Order Comment: No: D o not add to previous draw Performed By: #### 5 0608 #### [facility] [address] [place] [address], [facility] MCV (RBC) [Entitic vol] 87.0 fL Normal 82.0-98.0 [facility] Comment on above: Order Comment: No: D o not add to previous draw Performed By: #### 5 0608 #### [facility] [address] Nucleated RBC/100 WBC (Bld) [Ratio] 0 % Normal 0-0 [facility] Comment on above: Order Comment: No: D o not add to previous draw Performed By: #### 5 0608 #### [facility] [address] [place] [address], [facility] PLAT CNT 293 10*3/uL Normal 150-400 [facility] Comment on above: Order Comment: No: D o not add to previous draw Performed By: #### 5 0608 #### [facility] [address] [place] [address], [facility] RBC (Bld) [#/Vol] 4.76 10*6/uL Normal 3.80-5.00 [facility] Comment on above: Order Comment: No: D o not add to previous draw Performed By: #### 5 0608 #### [facility] [address] WBC (Bld) [#/Vol] 10.48 10*3/uL Normal 4.00-10.60 [facility] Comment on above: Order Comment: No: D o not add to previous draw Performed By: #### 5 0608 #### [facility] [address] History and Physicalon 08-23 History and Physical MR#: [id number] [facility] Pt. Name: Sherly Humphreys Admitted: 08/23/2018 Date of : 1970 Attending Physician: Nini Valente MD Room #: 3AB [id number] Discharge Date: HISTORY AND PHYSICAL CHIEF COMPLAINT: [...] she went to the emergency department in [facility]. Initial evaluation included troponin and EKG, which were negative. The patient was started on nitroglycerin patch. She experienced some relief after starting the nitroglycerin patch. Her pain went down from 8 to 6/10. Given her significant cardiac history, the patient was transferred to [facility] for further evaluation. The patient reports that [...] with no ST-T wave changes. Troponin from [facility] was 0.01. Pending troponin in our [...] Valente MD Date Trans: 08/23/2018 06:27 Amanda/yadira [id number] Normal [facility] POC GLUCOSE LABon 08-23-2018 Glucose [Mass/Vol] 101 mg/dL High 70-100 [facility] Comment on above: Performed By: #### 5 0608 #### [facility] [address] Glucose [Mass/Vol] 96 mg/dL Normal 70-100 [facility] Comment on above: Performed By: #### 5 0608 #### [facility] [address] [place] [address], [facility] Glucose [Mass/Vol] 134 mg/dL High 70-100 [facility] Comment on above: Performed By: #### 8 5499 #### [facility] [address] Glucose [Mass/Vol] 164 mg/dL High 70-100 [facility] Comment on above: Performed By: #### 8 5499 #### [facility] [address] PROTHROMBIN TIMEon 9 INR Coag (PPP) [Relative time] 1.06 {INR} Normal 0.91-1.16 [facility] Comment on above: Order Comment: No: [...] CHEST 1995;[id number]. Performed By: #### 5 6101, [address] #### [facility] [address] PT Coag (PPP) [Time] 13.8 s Normal 12.3-14.8 [facility] Comment on above: Order Comment: No: D o not add to previous draw Result Comment: ALL RESULTS MUST BE INTERPRETED WITH RESPECT TO BLOOD DRAWING ARTIFACT OR DILUTION ERROR OF ANTICOAGULANT AT THE TIME OF SAMPLING. Performed By: #### 5 6101, [id number] #### [facility] [address] SERUM TESTon 08-23 TEST Negative Normal [facility] Comment on above: Order Comment: Yes: Add to Previous draw if able Performed By: #### 4 6473 #### [facility] [address] [place] [address], [facility] TROPONIN-Ion 08-23-2018 Troponin I.cardiac [Mass/Vol] 0.01 ng/mL Normal 0.00-0.04 [facility] Comment on above: Order Comment: No: D o not add to previous draw Result Comment: REFE RENCE RANGES: 0.00 - 0.04 ng/ml NORMAL 0.05 - 0.50 ng/ml INDETERMINATE > 0.50 ng/ml CONSISTENT WITH AN M.I. Performed By: #### 3 5200 #### [address] UFH HEPARIN ASSAYon 08-24-19 19 UNFRACTIONATED HEPARIN 0.42 IU/mL Normal 0.30-0.70 [facility] Comment on above: Order Comment: per beatriz schneider Result Comment: Saline roxaban and Apixaban will interfere with the anti Xa assay used to monitor UFH and LMWH. Performed By: #### 3 0477 #### [address] UNFRACTIONATED HEPARIN 0.29 IU/mL Low 0.30-0.70 [facility] Comment on above: Result Comment: Saline roxaban and Apixaban will interfere with the anti Xa assay used to monitor UFH and LMWH. Performed By: #### 3 0477 #### [address] US GALLBLADDERon 08-23-2018 US GALLBLADDER [facility] Department of Radiology [address] [place] [id number] ===== Patient Name: SHERLY HUMPHREYS : 1970 Sex: F Age: Race: White Pt. Location: [id number] Patient Status: I Ordered Date: 08/23/2018 11:30:00 [...] gallbladder. Electronically signed by:Nathan Mattson. Transcribed by: [email or web address], User Resident: Electronically Signed by: NATHAN MATTSON @ 08/23/2018 03:33 PM Normal [facility] Comment on above: Order Comment: No: D o not add to previous draw Vital Signs Date Time Vital Sign Value Performing Clinician Facility 08-14-2022 10:15-0400 Body height 162.56 cm Ivan Sams Other [facility] Other 08-14-2022 10:15-0400 Body mass index (BMI) [Ratio] 51.63 kg/m2 Ivan Sams Other [facility] Other 08-14-2022 10:15-0400 Body weight 136.44 kg Ivan Sams Other [facility] Other 08-14-2022 10:15-0400 Diastolic blood pressure 80 mm[Hg] Ivan Sams Other [facility] Other 08-14-2022 10:15-0400 SaO2% (BldA) [Mass fraction] 99 % Ivan Sams Other [facility] Other 08-14-2022 10:15-0400 Systolic blood pressure 140 mm[Hg] Ivan Sams Other [facility] Other 07-03-2022 12:30-0400 Body height 162.56 cm Ivan Sams Other [facility] Other 07-03-2022 12:30-0400 Body mass index (BMI) [Ratio] 51.39 kg/m2 Ivan Sams Other [facility] Other 07-03-2022 12:30-0400 Body weight 135.81 kg Ivan Sams Other [facility] Other 07-03-2022 12:30-0400 Diastolic blood pressure 84 mm[Hg] Ivan Sams Other [facility] Other 07-03-2022 12:30-0400 SaO2% (BldA) [Mass fraction] 99 % Ivan Sams Other [facility] Other 07-03-2022 12:30-0400 Systolic blood pressure 142 mm[Hg] Ivan Sams Other [facility] Other 06-24-2022 15:59-0500 Body height 162.56 cm Janene Lew Work Phone: [facility] 06-24-2022 15:59-0500 Body temperature 98.2 [degF] Janene Aichholz Work Phone: [facility] 06-24-2022 15:59-0500 Body weight 134.4 kg Janene Aichholz Work Phone: [facility] 06-24-2022 15:59-0500 Diastolic blood pressure 95 mm[Hg] Janene Aichholz Work Phone: [facility] 06-24-2022 15:59-0500 Heart rate 94 /min Janene Aichholz Work Phone: [facility] 06-24-2022 15:59-0500 Respiratory rate 20 /min Janene Aichholz Work Phone: [facility] 06-24-2022 15:59-0500 SaO2% (BldA) [Mass fraction] 96 % Janene Karenholz Work Phone: [facility] 06-24-2022 15:59-0500 Systolic blood pressure 187 mm[Hg] Janene Karenholz Work Phone: [facility] 05-12-2022 12:00-0500 Body height 162.56 cm Christian Mckenzie Other [facility] [employer] Other 05-12-2022 12:00-0500 Body mass index (BMI) [Ratio] 51.94 kg/m2 Christian Mckenzie Other [facility] [employer] Other 05-12-2022 12:00-0500 Body weight 137.26 kg Christian Mckenzie Other [facility] Other 04-25-2022 12:20-0500 Body height 162.56 cm Halle Mac Other [facility] Other 04-25-2022 12:20-0500 Body mass index (BMI) [Ratio] 51.94 kg/m2 Aziz Bakhous Other [facility] Other 04-25-2022 12:20-0500 Body temperature 97.5 [degF] Halle Webers Other [facility] Other 04-25-2022 12:20-0500 Body weight 137.26 kg Halle Webers Other [facility] Other 04-25-2022 12:20-0500 Diastolic blood pressure 80 mm[Hg] Halle Webers Other [facility] Other 04-25-2022 12:20-0500 Respiratory rate 18 /min Halle Webers Other [facility] Other 04-25-2022 12:20-0500 SaO2% (BldA) [Mass fraction] 97 % Halle Mac Other [facility] Other 04-25-2022 12:20-0500 Systolic blood pressure 140 mm[Hg] Halle Webers Other [facility] Other 01-25-2022 16:15-0400 Body height 162.56 cm Emma Bolivar Other [facility] Other 01-25-2022 16:15-0400 Body mass index (BMI) [Ratio] 52.78 kg/m2 Emma Bolivar Other [facility] Other 01-25-2022 16:15-0400 Body temperature 97.1 [degF] Emma Bolivar Other [facility] Other 01-25-2022 16:15-0400 Body weight 139.48 kg Emma Bolivar Other [facility] Other 01-25-2022 16:15-0400 Diastolic blood pressure 70 mm[Hg] Emma Bolivar Other [facility] Other 01-25-2022 16:15-0400 SaO2% (BldA) [Mass fraction] 98 % Emma Bolivar Other [facility] Other 01-25-2022 16:15-0400 Systolic blood pressure 142 mm[Hg] Emma Bolivar Other [facility] Other 12-06-2021 12:20-0400 Body height 162.56 cm Christian Mckenzie Other [facility] Other 12-06-2021 12:20-0400 Body mass index (BMI) [Ratio] 46.34 kg/m2 Christian Mckenzie Other [facility] Other 12-06-2021 12:20-0400 Body weight 122.47 kg Christian Mckenzie Other [facility] Other 11-10-2021 16:20-0400 Body height 162.56 cm Christian Mckenzie Other [facility] Other 11-10-2021 16:20-0400 Body mass index (BMI) [Ratio] 46.34 kg/m2 Christian Mckenzie Other [facility] Other 11-10-2021 16:20-0400 Body weight 122.47 kg Christian Mckenzie Other [facility] Other 09-29-2021 14:00-0400 Body height 162.56 cm Christian Mckenzie Other [facility] Other 09-29-2021 14:00-0400 Body mass index (BMI) [Ratio] 46 kg/m2 Christian Mckenzie Other [facility] Other 09-29-2021 14:00-0400 Body weight 121.56 kg Christian Mckenzie Other [facility] Other 08-30-2021 15:40-0400 Body height 162.56 cm Christian Mckenzie Other [facility] Other 08-30-2021 15:40-0400 Body mass index (BMI) [Ratio] 46 kg/m2 Christian Mckenzie Other [facility] Other 08-30-2021 15:40-0400 Body weight 121.56 kg Christian Mckenzie Other [facility] Other Encounters Encounter Date Encounter Type Care Provider Facility Start: 05-03-2023 End: 05-03-2023 ambulatory JANENE LEW Not Available Start: 03-14-2023 End: 03-14-2023 ambulatory TK [facility] Start: 02-19-2023 End: 02-20-2023 ambulatory Elza Conway MD Facility:[facility] Start: 01-25-2023 ambulatory Janene Lew Facilit y:[facility] Start: 01-01-2023 End: 01-02-2023 ambulatory Elza Conway MD Facility:[facility] Start: 11-30-2022 End: 11-30-2022 [facility] Start: 11-29-2022 End: 11-29-2022 ambulatory Halle Mac Other [facility] Other Start: 11-29-2022 Telephone encounter Halle Mac [facility] Start: 09-29-2022 End: 09-29-2022 [facility] Start: 09-18-2022 End: 09-18-2022 ambulatory Ivan Sams Other [facility] Other Start: 09-18-2022 Telephone encounter Ivan Sams [facility] Start: 09-07-2022 End: 09-07-2022 ambulatory [employer]EL[employer] JANENE KARENHOLZ Facility:[facility] Start: 08-14-2022 End: 08-14-2022 ambulatory Ivanying Sams Other [facility] Other Start: 08-14-2022 Office outpatient vi sit 25 minutes Ivan Latrell [facility] Start: 07-03-2022 End: 07-03-2022 ambulatory Ivan Sams Other [facility] Other Start: 07-03-2022 Office consultation new/estab patient 60 min Ivan Latrell [facility] Start: 06-24-2022 End: 06-24-2022 Emergency department patient visit Merissa Hernandez Facility:[facility] Start: 06-24-2022 End: 06-24-2022 Emergency department patient visit Janene Jonesangiegabo Work Phone: [facility] Work Phone: Start: 06-08-2022 End: 06-09-2022 ambulatory [employer] DEVELOPER JANENE AICTimmyHOLZ Facility:[facility] Start: 05-29-2022 End: 05-30-2022 ambulatory [employer] DEVELOPER JANENE AICHHOLZ Facility:[facility] Start: 05-13-2022 ambulatory [employer] DEVELOPER JANENE AICHHOLZ Facil ity:[facility] Start: 05-12-2022 End: 05-12-2022 ambulatory Christian Mckenzie Other [facility] Other Start: 05-12-2022 Office outpatient vi sit 15 minutes Christian Mckenzie [facility] Start: 04-25-2022 End: 04-25-2022 ambulatory Donaldaurelia Bubba Other [facility] [employer] Other Start: 04-25-2022 Office outpatient ne w 30 minutes Donaldaurelia Tias [facility] [place] Start: 03-29-2022 End: 03-30-2022 ambulatory [employer] DEVELOPER JANENE WILFREDOZ Facility:[facility] Start: 03-23-2022 End: 03-24-2022 ambulatory [employer] DEVELOPER JANENE AICTimmyHOLZ Facility:[facility] Start: 02-19-2022 End: 02-19-2022 ambulatory [employer]ELOPER JANENE KARENHOLZ Facility:[facility] Start: 02-16-2022 End: 02-16-[address] MYRIAM PERRIN . Facility:[facility] Start: 02-15-2022 ambulatory [employer]ELOPER JANENE MATTY Facil ity:[facility] Start: 01-25-2022 End: 01-25-2022 Patient encounter procedure Janene Lew Work Phone: [facility] Start: 01-25-2022 End: 01-25-2022 ambulatory Janene Lew Work Phone: [facility] Work Phone: Start: 01-25-2022 Office outpatient vi sit 25 minutes Emma Bolivar [facility] Start: 01-25-2022 End: 01-26-2022 ambulatory [employer]ELOPER JANENE KARENHOLZ Facility:[facility] Start: 01-23-2022 End: 01-24-2022 ambulatory [employer]ELOPER JANENE AICTimmyHOLZ Facility:[facility] Start: 01-12-2022 End: 01-13-2022 ambulatory [employer]ELOPER JANENE KARENHOLZ Facility:[facility] Start: 12-21-2021 End: 12-22-2021 ambulatory [employer]EL[employer] JANENE AICTimmyHOLZ Facility:[facility] Start: 12-06-2021 End: 12-06-2021 ambulatory Christian Mckenzie Other [facility] [employer] Other Start: 12-06-2021 Office outpatient vi sit 15 minutes Christian Mckenzie [facility] Start: 11-30-2021 End: 11-30-2021 ambulatory P[employer] DEVELOPER JANENE LEW Facility:[facility] Start: 11-28-2021 End: 11-29-2021 ambulatory P[employer] DEVELOPER JANENE LEW Facility:[facility] Start: 11-14-2021 End: 11-14-2021 ambulatory Janene Lew Work Phone: [facility] Work Phone: Start: 11-14-2021 End: 11-14-2021 Discharged Recurring Janene Lew Work Phone: [facility] [place] Start: 11-10-2021 End: 11-10-2021 ambulatory Christian Mckenzie Other [facility] Other Start: 11-10-2021 Postop follow up vis it related to original px Christian Mckenzie [facility] Start: 10-28-2021 End: 10-29-2021 ambulatory P[employer] DEVELOPER JANENE LEW Facility:[facility] Start: 10-02-2021 End: 10-02-2021 ambulatory P[employer] DEVELOPER JANENE LEW Facility:[facility] Start: 09-29-2021 End: 09-29-2021 ambulatory Christian Mckenzie Other [facility] Other Start: 09-29-2021 Postop follow up vis it related to original px Christian Mckenzie [facility] Start: 08-30-2021 End: 08-30-2021 ambulatory Christian Mckenzie Other [facility] Other Start: 08-30-2021 Postop follow up vis it related to original px Christian Mckenzie [facility] Start: 08-12-2021 [facility]mission to [facility] Christian Mckenzie [facility] Start: 08-12-2021 End: 08-12-2021 ambulatory Christian Mckenzie Other [facility] Other Start: 08-23-2018 End: 08-25-2018 Evaluation and management of inpatient Peng Valles Facility:[facility] Procedures Date Procedure Procedure Detail Performing Clinician Start: 08-23-2018 FLUOROSCOPY OF MULTI PLE CORONARY ARTERIES USING OTH CONTRAST EHAB A [place] History of percutane ous transluminal coronary angioplasty History of PTCA Janene Lew Work Phone: Plan of Treatment Date Care Activity Detail Author Patient Education Radiculopathy (DC) [facility] Work Phone: Patient referral [facility] Work Phone: Immunizations Immunization Date Immunization Notes Care Provider Fa cility 05-17-2021 COVID-19 mRNA, Comirnaty (Pfizer) Janene Lew Work Phone: [facility] 09-06-2020 COVID-19 mRNA, Comirnaty (Pfizer) Janene Lew Work Phone: [facility] 08-16-2020 COVID-19 mRNA, Comirnaty (Pfizer) Janene Lew Work Phone: [facility] 01-31-2019 influenza, injectabl e, quadrivalent, contains preservative Christian Mckenzie Other [facility] Other 03-15-2018 influenza, injectabl e, quadrivalent, contains preservative Christian Mckenzie Other [facility] [employer] Other Payers Date Payer Category Payer Medicaid [id number] 2022 Self-pay [id number] 2022 Medicaid [id number] 2. [id number] 2022 Private Health Insurance [id number] 2.16.840.1.899674.19 2022 Private Health Insurance 2022 Unknown 2010 Self-pay [id number] 1970 Unknown [id number] 2.16.8 40.1.488748.3.579.2.647 1970 Unknown [id number] 2.16.84 0.1.837735.3.579.2.593 1970 Unknown [id number] 2.16.84 0.1.626226.3.579.2.593 1970 Unknown [id number] 2.16.84 0.1.791265.3.579.2.593 1970 Unknown [id number] 2.16.84 0.1.934556.3.579.2.593 1970 Unknown [id number] 2.16.84 0.1.186683.3.579.2.593 1970 Unknown [id number] 2.16.84 0.1.108759.3.579.2.593 1970 Unknown [id number] 2.16.84 0.1.709679.3.579.2.593 1970 Unknown [id number] 2.16.84 0.1.865280.3.579.2.593 1970 Unknown [id number] 2.16.84 0.1.976616.3.579.2.593 1970 Unknown [id number] 2.16.84 0.1.861040.3.579.2.593 1970 Unknown [id number] 2.16.84 0.1.414652.3.579.2.593 1970 Unknown [id number] 2.16.84 0.1.780084.3.579.2.593 1970 Unknown [id number] 2.16.84 0.1.647718.3.579.2.593 1970 Unknown [id number] 2.16.84 0.1.763630.3.579.2.593 1970 Unknown [id number] 2.16.84 0.1.178661.3.579.2.593 1970 Unknown [id number] 2.16.84 0.1.205745.3.579.2.593 1970 Unknown [id number] 2.16.84 0.1.398243.3.579.2.593 1970 Unknown [id number] 2.16. 840.1.651724.3.579.2.196 1970 Unknown [id number] 2.16. 840.1.896219.3.579.2.196 1970 Unknown [id number] 2.16.84 0.1.821120.3.579.2.1259 1959 Private Health Insurance [id number] 2.16.840.1.618233.19 1959 Unknown [id number] 2.1 6.840.1.420174.19 Unknown [id number] 2.16.8 40.1.542956.3.579.2.531 Unknown [id number] 2.16.8 40.1.263467.3.579.2.531 Social History Date Type Detail Facility Unknown if ever smoked [facility] Other Sex Assigned At Sex Assigned At Bir th [facility] Other Start: 08-12-2021 End: 06-24-2022 Tobacco smoking status NHIS Never smoked tobacco (finding) [facility] Start: 1970 Sex Assigned At Female F [facility] Clinical Notes 08-30-2021 to 03-14-2023 Note Date & Type Note Facility 03-14-2023 Note [facility] Note Chief Complaint: Patient here [...] Denies chest pain and palpitations. Went to [facility] recently and had to sit down in [...] right ventricular systo (more content not included)... [facility] 11-30-2022 Note Cardiology Clinic No te [...] diastolic heart failure (CMS/HCC) Coronary arteriosclerosis in [place] artery Coronary atherosclerosis Dehydration Bipolar disorder (CMS/HCC) [...] 19, serum creati (more content not included)... [facility] 09-29-2022 Note Cardiology Clinic No te [...] diastolic heart failure (CMS/HCC) Coronary arteriosclerosis in [place] artery Coronary atherosclerosis Dehydration Bipolar disorder (CMS/HCC) [...] Otherwise normal coronary (more content not included)... [facility] 09-29-2022 Note Review of Systems Cardiovascular: Positive for leg swelling. Respiratory: Positive for shortness of breath. [facility] 08-14-2022 Evaluation note Encounter Date Diagnosis [...] - G89.29) Proceed with current treatment plan [facility] Other 03-20-2023 Evaluation note* Encounter Date Diagnosis [...] negative findings were considered in medical decision-making. [facility] Other 03-11-2023 Hospital Discharge instructions Additional Instructions [...] bowel control high fever or [facility] Work Phone: [phone] 735-950301-27-2023 Evaluation note* Encounter Date Diagnosis Assessment Notes [...] [facility] [employer] Other 01-10-2023 Evaluation note* Encounter Date Diagnosis [...] obesity (ICD-10 - E66.01) Encouraged weight loss [facility] Other 10-12-2022 Evaluation note* Encounter Date Diagnosis [...] strap. A prescription was sent to the [employer] for new supplies throughout the year, as [...] sleepiness, or poor response to treatment. . 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) [facility] Other 07-28-2022 Evaluation note* Encounter Date Diagnosis [...] a med check and PT follow up [facility] Other 06-16-2022 Evaluation note* Encounter Date Diagnosis [...] labor Sep, Thoracic myelopathy (ICD-10 - M47.14) [facility] Other 05-17-2022 Evaluation note* Encounter Date Diagnosis [...] Overall she is making a good recovery [facility] Other evaluation noteNo InformationNort [employer] Other evaluation noteNo assessment information available [facility] Work Phone: [employer] general Narrative - Reported* Type Description Date [...] History Tonsilectomy Teenager Hospitalization History See Above [facility] Other Hisylxi general Narrative - Reported* Type Description Date [...] BACK SURGERY 07/2021 Hospitalization History See Above [facility] Other Summary Purpose Family History No Family [...] 2018 4:43pm Hospital Course Note MR#: [id number] [facility] Pt. Name: Sherly Humphreys Admitted: 08/23/2018 Discharged: [...] Diagnosis 1 Thoracic myelopathy (M47.14) Referral Organization [facility] Referring Provider First Name Christian Referring Provider Last Name Alfonso Referring Provider Specialty Neurologica l Surgery Referred Organization [facility] Pain Managemen t Referred Provider Ivan Sams Referred Address [address],[place] [address] ,[place], [place],[address] Referred Provider Specialty Pain Medicin e Referral Priority Routine General Notes Laney Nini 023 12:45:54 PM >Received today and sent P2P Kristal Veloz 05/16/2022 02:01:28 PM >pt has been scheduled [facility] 09[facility]01:37 AM >[facility] a [facility] show [facility] 11:23:40 AM >Telephone encounter was sent Reason Evaluate and Treat B ilateral Low Back Pain Diagnosis 1 Low back pain (M54.5 ) [facility] Referring Provider First Name Christian Referring Provider [...] and content) DATE CREATED AUTHOR 11/22/2018 [facility] DATE CREATED AUTHOR AUTHOR'S ORGANIZ ATION 09/22/2022 [facility] DATE CREATED AUTHOR AUTHOR'S ORGANIZ ATION 02/22/2023 [facility] DATE CREATED AUTHOR AUTHOR'S ORGANIZ ATION 03/16/2023 [facility] DATE CREATED AUTHOR AUTHOR'S ORGANIZ ATION 04/28/2023 [facility] DATE CREATED AUTHOR AUTHOR'S ORGANIZ ATION 05/04/2023 [facility] EPIC REASON FOR VISIT (unrecogniz ed section and content) [id number] WK PO DISC ECTOMY6 wk po Discectomy3 [...] Dates Janene Lew Primary Care Provider Active Emma Bolivar NP Attending Provider Active Team Status: Inactive Member Role Status Dates Janene Lew Primary Care Provider Active Merissa Hernandez [employer] Emergency Provider Active Goals (unrecognized section and [...] BE BASED ON THE PRIMARY CLINICAL RECORDS. [employer] provides no warranty or guarantee of the accuracy or completeness of information in this document.
[2023-05-10 09:30] LABS: Basophils Absolute Auto 0.1 10^3/uL (0.0-0.1); Basophils Percent Auto 1.5 % (0.2-2.0); Eosinophils Absolute Auto 0.2 10^3/uL (0.0-0.7); Eosinophils Percent Auto 4.8 % (0.9-7.0); Hematocrit 35.1 % (36.0-48.0); Hemoglobin 10.7 g/dL (12.0-16.0); Immature Granulocytes Abs Auto 0.01 10^3/uL (0.00-0.03); Immature Granulocytes Pct Auto 0.2 % (0.0-0.5); Lymphocytes Percent Auto 42.5 % (20.5-60.0); Mean Corpuscular HGB Conc 30.5 g/dL (29.9-35.2); Mean Corpuscular Hemoglobin 29.3 pg (26.7-34.0); Mean Corpuscular Volume 96.2 fL (81.0-99.0); Mean Platelet Volume 11.2 fL (9.5-13.5); Monocytes Absolute Auto 0.4 10^3/uL (0.3-0.8); Monocytes Percent Auto 7.7 % (1.7-12.0); Neutrophils Absolute Auto 2.1 10^3/uL (1.4-6.5); Neutrophils Percent Auto 43.3 % (43.0-75.0); Platelet Count 200 10^3/uL (150-450); Red Blood Count 3.65 10^6/uL (4.20-5.40); Red Cell Distribution Width 13.2 % (11.0-15.0); White Blood Count 4.8 10^3/uL (4.0-11.0)
[2023-05-10 09:37] LABS: Bilirubin Urine NEGATIVE (NEGATIVE); Blood Urine NEGATIVE (NEGATIVE); Clarity Urine CLEAR (CLEAR); Color Urine LT. YELLOW (YELLOW); Glucose Urine UA NEGATIVE (NEGATIVE); Ketones Urine NEGATIVE (NEGATIVE); Leukocyte Esterase Urine NEGATIVE (NEGATIVE); Nitrite Urine NEGATIVE (NEGATIVE); Protein Urine NEGATIVE (NEG/TRACE); Specific Gravity Urine 1.015 (1.005-1.025); Urobilinogen Urine 0.2 EU/dL (0.2-1.0); pH Urine 5.5 (5.0-9.0)
[2023-05-10 09:39] LABS: Urine Microscopic Indicated NO
[2023-05-10 09:42] LABS: Creatinine Urine Random 38.77 mg/dL (20.00-300.00); Microalbumin Urine Random <1.3 mg/dL (<=30.0)
[2023-05-10 10:34] LABS: Alanine Aminotransferase 28 U/L (14-59); Albumin Globulin Ratio 1.1; Albumin Level 3.4 g/dL (3.4-5.0); Alkaline Phosphatase 66 U/L (46-116); Anion Gap 11.9; Aspartate Amino Transferase 19 U/L (15-37); BUN Creatinine Ratio 29.7; Bilirubin Total 0.4 mg/dL (0.2-1.0); Calcium 8.8 mg/dL (8.5-10.1); Carbon Dioxide 28.6 mmol/L (21.0-32.0); Chloride 108 mmol/L (98-107); Chol HDL Ratio 3.1; Cholesterol 121 mg/dL (<=200); Estimated GFR (African America 45 (>=60); Estimated GFR (Non-African Ame 37 (>=60); Globulin 3.2 g/dL; Glucose 117 mg/dL (74-106); HDL Cholesterol 39 mg/dL (40-60); Potassium 4.5 mmol/L (3.5-5.1); Sodium 144 mmol/L (136-145); Total Protein 6.6 g/dL (6.4-8.2); Triglycerides 140 mg/dL (<=150)
[2023-05-10 11:21] LABS: Estimated Average Glucose 126 mg/dL
== END 2023-05-10 09:00 | disposition home or self-care (01) ==
LOC: LAB 09:00
PROVIDERS: PCP Nurse Practitioner; Visit Provider Nurse Practitioner
DX: I12.9 Hypertensive chronic kidney disease with stage 1 through stage 4 chronic kidney disease, or unspecified chronic kidney disease (principal); R60.0 Localized edema; E78.2 Mixed hyperlipidemia; R31.29 Other microscopic hematuria; N18.30 Chronic kidney disease, stage 3 unspecified; K21.9 Gastro-esophageal reflux disease without esophagitis
CPT/HCPCS: 36415; 80053; 80061; 81003; 82043; 82570; 83036; 85025

== ENCOUNTER 2023-05-10 09:00 | Outpatient (OUT) | payer BC, SELFPAY ==
--- OUTSIDE RECORDS SUMMARY | 2023-05-10 09:07 | XMS_ITS | CCD ---
Author Name Unknown Address [address] [place] [address] Organization [facility] Care Team Providers Care Baby Formula Worker Name Role Phone Peng Valles Admitting Unavailable Peng Valles Attending Unavailable GEOVANNI MYERS Primary Care Unavailable HAMMAD LING Referring Unavailabl e [place] Procedure Practitioner Unavailab TK Beaulieu Surgeon Unavailable Christian Mckenzie Unavailable Janene Lew Primary Care Provider MD Christian Mckenzie Attending Provider ELIER Bolivar Emma Attending Provider Emma Bolivar Unavailable Halle Mac Unavailable Janene Lew Primary Care Provider STU Hernandez-LYNNE Antunez Emergency Provider Ivan Sams Unavailable AICHHOLZ, REGIONAL HR MANAGER JANENE Consulting Unavailable AICHHOLZ, REGIONAL HR MANAGER JANENE Attending Unavailable AICHHOLZ, REGIONAL HR MANAGER JANENE Admitting Unavailable AICHHOLZ, REGIONAL HR MANAGER JANENE Primary Care Unavailable AICHHOLZ, REGIONAL HR MANAGER JANENE Consulting Unavailable AICHHOLZ, REGIONAL HR MANAGER JANENE Attending Unavailable AICHHOLZ, REGIONAL HR MANAGER JANENE Admitting Unavailable AICHHOLZ, REGIONAL HR MANAGER JANENE Primary Care Unavailable AICHHOLZ, REGIONAL HR MANAGER JANENE Primary Care Unavailable AICHHOLZ, REGIONAL HR MANAGER JANENE Consulting Unavailable AICHHOLZ, REGIONAL HR MANAGER JANENE Admitting Unavailable AICHHOLZ, REGIONAL HR MANAGER JANENE Attending Unavailable AYDIN Carrillo, DR MIGUEL Attending Unavailable AYDIN Carrillo, DR MIGUEL Admitting Unavailable AYDIN Carrillo, DR MIGUEL Consulting Unavailable AICHHOLZ, REGIONAL HR MANAGER JANENE Primary Care Unavailable AICHHOLZ, REGIONAL HR MANAGER JANENE Primary Care Unavailable DWAYNE FRIEDMAN Admitting Unavailable DWAYNE FRIEDMAN Attending Unavailable CLEMENT PLUMMER Consulting Unavailable Wan Jenkins Consulting Unavailable AICHHOLZ, REGIONAL HR MANAGER JANENE Primary Care Unavailable EVON TRAMMELL Attending Unavailable EVON TRAMMELL Admitting Unavailable EVON TRAMMELL Consulting Unavailable LUZ COELLO Consulting Unavailable NATHAN COLE Consulting Unavailable LIN GARRETT Consulting Unavailable AICHHOLZ, REGIONAL HR MANAGER JANENE Primary Care Unavailable AICHHOLZ, REGIONAL HR MANAGER JANENE Admitting Unavailable AICHHOLZ, REGIONAL HR MANAGER JANENE Attending Unavailable TIFFANY, DR ALEX Ashley Consulting Unavailable AICHHOLZ, REGIONAL HR MANAGER JANENE Consulting Unavailable AICHHOLZ, REGIONAL HR MANAGER JANENE Consulting Unavailable AICHHOLZ, REGIONAL HR MANAGER JANENE Attending Unavailable AICHHOLZ, REGIONAL HR MANAGER JANENE Admitting Unavailable AICHHOLZ, REGIONAL HR MANAGER JANENE Primary Care Unavailable DR KATHY HENDRICKS Consulting Unavailable AICHHOLZ, REGIONAL HR MANAGER JANENE Attending Unavailable AICHHOLZ, REGIONAL HR MANAGER JANENE Admitting Unavailable AICHHOLZ, REGIONAL HR MANAGER JANENE Primary Care Unavailable DR ALEX ALLEN V Consulting Unavailable AICHHOLZ, REGIONAL HR MANAGER JANENE Consulting Unavailable AICHHOLZ, REGIONAL HR MANAGER JANENE Consulting Unavailable AICHHOLZ, REGIONAL HR MANAGER JANENE Primary Care Unavailable AICHHOLZ, REGIONAL HR MANAGER JANENE Attending Unavailable AICHHOLZ, REGIONAL HR MANAGER JANENE Admitting Unavailable AICHHOLZ, REGIONAL HR MANAGER JANENE Primary Care Unavailable AICHHOLZ, REGIONAL HR MANAGER JANENE Admitting Unavailable AICHHOLZ, REGIONAL HR MANAGER JANENE Consulting Unavailable AICHHOLZ, REGIONAL HR MANAGER JANENE Attending Unavailable DR KATHY HENDRICKS Consulting Unavailable AICHHOLZ, REGIONAL HR MANAGER JANENE Primary Care Unavailable BAKHOUS, AZIZ Admitting Unavailable BAKHOUS, AZIZ Attending Unavailable AICHHOLZ, REGIONAL HR MANAGER JANENE Attending Unavailable AICHHOLZ, REGIONAL HR MANAGER JANENE Admitting Unavailable AICHHOLZ, REGIONAL HR MANAGER JANENE Primary Care Unavailable AICHHOLZ, REGIONAL HR MANAGER JANENE Primary Care Unavailable AICHHOLZ, REGIONAL HR MANAGER JANENE Consulting Unavailable AICHHOLZ, REGIONAL HR MANAGER JANENE Attending Unavailable AICHHOLZ, REGIONAL HR MANAGER JANENE Admitting Unavailable DR KATHY HENDRICKS Consulting Unavailable AICHHOLZ, REGIONAL HR MANAGER JANENE Primary Care Unavailable AICHHOLZ, REGIONAL HR MANAGER JANENE Admitting Unavailable AICHHOLZ, REGIONAL HR MANAGER JANENE Attending Unavailable AICHHOLZ, REGIONAL HR MANAGER JANENE Consulting Unavailable AICHHOLZ, REGIONAL HR MANAGER JANENE Primary Care Unavailable AMBER ., DOLORES Attending Unavailable AMBER ., DOLORES Admitting Unavailable ASHLEY ., MR DELIA Consulting Unavailable AMBER ., DOLORES Consulting Unavailable ALEX AVINA Consulting Unavailable AICHHOLZ, REGIONAL HR MANAGER JANENE Primary Care Unavailable JP, EVON Attending [...] sources) Cephalexin Drug Allergy 10-06-19 10 [facility] Repository (2 sources) Levamisole Drug Allergy 05-22-19 13 [facility] (2 sources) Omeprazole; Translations: [OMEPRAZOLE] Drug Allergy 04-20-19 16 [facility] (14 sources) Prochlorperazine Drug Allergy 10-06-19 10 Unknown [facility] (14 sources) Sulfamethoxazole / Trimethoprim Drug Allergy 10-06-19 10 Unknown [facility] (12 sources) Penicillins (Antibiotic) Propensity to adverse reactions Unknown [facility] Other (16 sources) Promethazine; Translations: [PROMETHAZINE] Drug Allergy 06-28-19 14 Unknown, Seizure [facility] (5 sources) empagliflozin; Translations: [EMPAGLIFLOZIN] Drug Allergy 08-11-19 22 Unknown Reaction [facility] (6 sources) Penicillins; Translations: [Penicillins] Allergy to substance 06-28-19 14 [facility] (5 sources) Prochlorperazine; Translations: [PROCHLORPERAZINE] Drug Allergy 06-28-19 14 [facility] (5 sources) Sulfamethoxazole; Translations: [SULFAMETHOXAZOLE] Drug Allergy 06-28-19 14 [facility] (4 sources) Trimethoprim; Translations: [trimethoprim] Drug Allergy 08-11-19 22 [facility] (1 source) Sulfonamides (Antibiotic) Drug allergy (disorder) 06-10-19 15 [facility] Repository (1 source) Cephalexin; Translations: [CEPHALEXIN] Drug Allergy 06-28-19 14 [facility] Repository (1 source) Doxycycline; Translations: [DOXYCYCLINE CALCIUM] Drug Allergy 06-28-19 14 [facility] Repository (1 source) Esomeprazole; Translations: [ESOMEPRAZOLE MAGNESIUM] Drug Allergy 06-23-19 17 [facility] Repository (1 source) pantoprazole; Translations: [PANTOPRAZOLE] Drug Allergy 06-23-19 17 [facility] Repository (1 source) Sulfamethoxazole / Trimethoprim; Translations: [SULFAMETHOXAZOLE-T RIMETHOPRIM] Drug Allergy 04-03-20 14 [facility] Repository (1 source) PHENERGAN PLAIN; Translations: [PHENERGAN PLAIN] Propensity to adverse reactions to drug (disorder) 09-17-19 16 [facility] Repository (1 source) Promethazine Drug Allergy 06-25-19 23 [facility] Repository Medications Current Medications Medication Drug Class(es) Dates Sig (Normalized) Sig (Original) acetaminophen 325 mg / oxyCODONE hydrochloride 5 mg oral tablet (6 sources) Opioid Agonist Start: 06-24-2022 take 1 tablet by mouth every six hours Oxycodone-Acetami nophen Active 1 TAB PO Q6H 10 3 June 24, 2022 [id number] actuat albuterol 0.09 mg/actuat metered dose [...] Active Start: 11-10-2021 take [address] [facility] every twelve hours Gabapentin 600 MG 2 tablets Orally bid for 20 days Oct, Active Start: 09-29-2021 take 1-2 capsules by mouth twice daily Gabapentin 300 MG 1-2 capsule Orally twice a day for 30 day(s) Sep, Active Start: 12-05-2019 take [address] [facility] every twenty-four hours Gabapentin 300 MG 1 [...] Coronary arteriosclerosis; Translations: [Atherosclerotic heart disease of [place] coronary artery without angina pectoris] Onset: 09-11-2022 [...] deficiency, unspecified] Chronic Other aftercare (1 source) ferry terminal agent (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; Translations: [DETENTION CURRENT USE OF ASPIRIN] Onset: 09-11-2022 Episodic Other aftercare (1 source) ferry terminal agent (current) use of oral hypoglycemic drugs; Translations: [DETENTION USE ORAL HYPOGLYCEMIC DX] Onset: 09-11-2022 Episodic Other aftercare (1 source) Other alf (current) drug therapy; Translations: [OTH DETENTION CURRENT DRUG THERAPY] Onset: 09-11-2022 Episodic Other [...] Range Facility Office Visiton 03-14-2023 Follow-up visit [id number] Nithin Humphreys A 1970 F Date Provider Department Center 03/14/2023 [id number] SIDDIQUI [facility] No family history on file Level of Service:59909 [place] OFFICE/OUTPATIENT ESTABLISHED MOD MDM 30-39 MIN Normal [facility] 37on 11-30-2022 37 -Stop hydrochlorothiazide and start Spironolactone 25 mg daily -Stop Lisinopril and start Entresto 2 day after stopping Lisinopril -Get labs 1 week after starting Entresto -Bring blood pressure machine to be checked out when you come for blood draw Normal [facility] Office Visiton 11-30-2022 Follow-up visit [id number] PetrNithin Patel 1970 Date Provider Department Center 11/30/2022 [id number]-MUNELDMMNJONATHAN ARIAS MATTHEW [facility] No family history on file Level of Service:72646 [place] OFFICE/OUTPATIENT ESTABLISHED MOD MDM 30-39 MIN Reason for Visit and Comments: Follow-up [042829] - Go over echo results [facility] Office Visiton 09-29-2022 Follow-up visit [id number] [place],Nithin Patel 1970 Date Provider Department Center 09/29/2022 [id number]-WQPXYOJIJJONATHAN ARIAS MATTHEW [facility] No family history on file Level of Service:82541 [place] OFFICE/OUTPATIENT ESTABLISHED MOD MDM 30-39 MIN Reason for Visit and Comments: Follow-up [041708] - Pt is here for 1 year f/u - lots of symptoms pt states she been having swelling legs high BP and Shortness of breath pt states swelling started 2 month ago other symptoms started 1 month ago [facility] BNPon 09-07-2022 Natriuretic peptide B (Bld) [Mass/Vol] 391.0 pg/mL Normal <=900.0 [facility] Comment on above: Performed By: #### L IPID, BMP #### [facility] [address] [address] [address] Jag Waldrop CBC AUTO DIFFon 09-07-2022 BASO # 0.1 103/ul Normal 0.0-0.1 [facility] Comment on above: Performed By: #### L IPID, BMP #### [facility] [address] [place] [address] Dr. Jag Waldrop Basophils/100 WBC (Bld) 1.4 % Normal 0.2-2.0 [facility] Comment on above: Performed By: #### L IPID, BMP #### [facility] [address] [place] [address] Dr. Jag Waldrop EO # 0.1 103/ul Normal 0.0-0.7 [facility] Comment on above: Performed By: #### L IPID, BMP #### [facility] [address] [place] [address] Dr. Jag Waldrop Eosinophils/100 WBC (Bld) 1.6 % Normal 0.9-7.0 [facility] Comment on above: Performed By: #### L IPID, BMP #### [facility] [address] [place] [address] Dr. Jag Waldrop Erythrocyte distribution width (RBC) [Ratio] 15.0 % Normal 11.0-15.0 [facility] Comment on above: Performed By: #### L IPID, BMP #### [facility] [address] [place] [address] Dr. Jag Waldrop Hematocrit (Bld) [Volume fraction] 37.2 % Normal 36.0-48.0 [facility] Comment on above: Performed By: #### L IPID, BMP #### [facility] [address] [place] [address] Dr. Jag Waldrop Hemoglobin (Bld) [Mass/Vol] 11.6 g/dL Critically low 12.0-16.0 [facility] Comment on above: Performed By: #### L IPID, BMP #### [facility] [address] [place] [address] Dr. Jag Waldrop IG # 0.01 10e3/ul Normal 0.00-0.03 [facility] Comment on above: Performed By: #### L IPID, BMP #### [facility] [address] [place] [address] Dr. Jag Waldrop IG % 0.2 % Normal 0.0-0.5 [facility] Comment on above: Performed By: #### L IPID, BMP #### [facility] [address] [place] [address] Dr. Jag Waldrop LYMPH # 1.9 103/ul Normal 1.2-3.8 [facility] Comment on above: Performed By: #### L IPID, BMP #### [facility] [address] [place] [address] Dr. Jag Waldrop Lymphocytes/100 WBC (Bld) 39.1 % Normal 20.5-60.0 [facility] Comment on above: Performed By: #### L IPID, BMP #### [facility] [address] [place] [address] Dr. Jag Waldrop MANUAL DIFF REQ NO Normal [facility] Comment on above: Performed By: #### L IPID, BMP #### [facility] [address] [place] [address] Dr. Jag Waldrop MCH (RBC) [Entitic mass] 27.5 pg Normal 26.7-34.0 [facility] Comment on above: Performed By: #### L IPID, BMP #### [facility] [address] [place] [address] Dr. Jag Waldrop MCHC (RBC) [Mass/Vol] 31.2 g/dL Normal 29.9-35.2 [facility] Comment on above: Performed By: #### L IPID, BMP #### [facility] [address] [place] [address] Dr. Jag Waldrop MCV (RBC) [Entitic vol] 88.2 fL Normal 81.0-99.0 [facility] Comment on above: Performed By: #### L IPID, BMP #### [facility] [address] [place] [address] Dr. Jag Waldrop MONO # 0.3 103/ul Normal 0.3-0.8 [facility] Comment on above: Performed By: #### L IPID, BMP #### [facility] [address] [place] [address] Dr. Jag Waldrop Monocytes/100 WBC (Bld) 6.5 % Normal 1.7-12.0 [facility] Comment on above: Performed By: #### L IPID, BMP #### [facility] [address] [place] [address] Dr. Jag Waldrop NEUT # 2.5 103/ul Normal 1.4-6.5 [facility] Comment on above: Performed By: #### L IPID, BMP #### [facility] [address] [place] [address] Dr. Jag Waldrop Neutrophils/100 WBC (Bld) 51.2 % Normal 43.0-75.0 [facility] Comment on above: Performed By: #### L IPID, BMP #### [facility] [address] [place] [address] Dr. Jag Waldrop Platelet mean volume (Bld) [Entitic vol] 10.5 fL Normal 9.5-13.5 [facility] Comment on above: Performed By: #### L IPID, BMP #### [facility] [address] [place] [address] Dr. Jag Waldrop PLT 272 103/ul Normal 150-450 [facility] Comment on above: Performed By: #### L IPID, BMP #### [facility] [address] [place] [address] Dr. Jag Waldrop RBC 4.22 106/ul Normal 4.20-5.40 [facility] Comment on above: Performed By: #### L IPID, BMP #### [facility] [address] [place] [address] Dr. Jag Waldrop WBC 4.9 103/ul Normal 4.0-11.0 [facility] Comment on above: Performed By: #### L IPID, BMP #### [facility] [address] [place] [address] Dr. Jag Waldrop ER URINE PROFILEon 3 Bilirubin Ql (U) Negative Normal NEGATIVE [facility] Comment on above: Performed By: #### E RUR #### [facility] [address] [place], [place] [id number] Dr. Jag Waldrop Clarity (U) CLEAR Normal CLEAR [facility] Comment on above: Performed By: #### E RUR #### [facility] [address] [place] [address] Dr. Jag Waldrop Color (U) LT. YELLOW Normal YELLOW [facility] Comment on above: Performed By: #### E RUR #### [facility] [address] [place] [address] Dr. Jag Waldrop ERUAHD A micrscopic examination will be performed if indicated. Normal [facility] Comment on above: Performed By: #### E RUR #### [facility] [address] [place] [address] Dr. Jag Waldrop Glucose Ql (U) Negative Normal NEGATIVE [facility] Comment on above: Performed By: #### E RUR #### [facility] [address] [place] [address] Dr. Jag Waldrop Hemoglobin Ql (U) Negative Normal NEGATIVE [facility] Comment on above: Performed By: #### E RUR #### [facility] [address] [place] [address] Dr. Jag Waldrop Ketones Ql (U) Negative Normal NEGATIVE [facility] Comment on above: Performed By: #### E RUR #### [facility] [address] [place] [address] Dr. Jag Waldrop LEUKOCYTES Negative Normal NEGATIVE [facility] Comment on above: Performed By: #### E RUR #### [facility] [address] [place] [address] Dr. Jag Waldrop Nitrite Ql (U) Negative Normal NEGATIVE [facility] Comment on above: Performed By: #### E RUR #### [facility] [address] [place] [address] Dr. Jag Waldrop pH (U) 7.0 [pH] Normal 5-9 [facility] Comment on above: Performed By: #### E RUR #### [facility] [address] [place] [address] Dr. Jag Waldrop SPEC GRAVITY 1.010 Normal 1.005-<=1.025 [facility] Comment on above: Performed By: #### E RUR #### [facility] [address] [place] [address] Dr. Jag Waldrop UA PROTEIN Negative Normal NEGATIVE/ TRACE [facility] Comment on above: Performed By: #### E RUR #### [facility] [address] [place] [address] Dr. Jag Waldrop UR MICRO IND NOT INDICATED Normal [facility] Comment on above: Performed By: #### E RUR #### [facility] [address] [place] [address] Dr. Jag Waldrop Urobilinogen Qn (U) 0.2 {Chris'U}/dL Normal 0.2 - 1. 0 [facility] Comment on above: Performed By: #### E RUR #### [facility] [address] [place] [address] Dr. Jag Waldrop PROF 14(COMP METB)on 023 Albumin [Mass/Vol] 3.9 g/dL Normal 3.4-5.0 [facility] Comment on above: Performed By: #### L IPID, BMP #### [facility] [address] [place] [address] Dr. Jag Waldrop Albumin/Globulin [Mass ratio] 1.2 {ratio} Normal [facility] Comment on above: Performed By: #### L IPID, BMP #### [facility] [address] [place] [address] Dr. Jag Waldrop ALP [Catalytic activity/Vol] 95 U/L Normal 46-116 [facility] Comment on above: Performed By: #### L IPID, BMP #### [facility] [address] [place] [address] Dr. Jag Waldrop ALT [Catalytic activity/Vol] 31 U/L Normal 14-59 [facility] Comment on above: Performed By: #### L IPID, BMP #### [facility] [address] [place] [address] Dr. Jag Waldrop Anion gap [Moles/Vol] 12.7 mmol/L Normal [facility] Comment on above: Performed By: #### L IPID, BMP #### [facility] [address] [address] [address] Jag Waldrop AST [Catalytic activity/Vol] 34 U/L Normal 15-37 [facility] Comment on above: Performed By: #### L IPID, BMP #### [facility] [address] [place] [address] Dr. Jag Waldrop Bilirubin [Mass/Vol] 0.4 mg/dL Normal 0.2-1.0 [facility] Comment on above: Performed By: #### L IPID, BMP #### [facility] [address] [place] [address] Dr. Jag Waldrop Calcium [Mass/Vol] 9.1 mg/dL Normal 8.5-10.1 [facility] Comment on above: Performed By: #### L IPID, BMP #### [facility] [address] [place] [address] Dr. Jag Waldrop Chloride [Moles/Vol] 107 mmol/L Normal 98-107 [facility] Comment on above: Performed By: #### L IPID, BMP #### [facility] [address] [place] [address] Dr. Jag Waldrop CO2 [Moles/Vol] 28.1 mmol/L Normal 21.0-32.0 [facility] Comment on above: Performed By: #### L IPID, BMP #### [facility] [address] [place] [address] Dr. Jag Waldrop Creatinine [Mass/Vol] 1.18 mg/dL Critically high 0.55-1.02 [facility] Comment on above: Performed By: #### L IPID, BMP #### [facility] [address] [place] [address] Dr. Jag Waldrop EGFR-AF [place]IZ[place] 59 mL/min/1.73m2 Critically low >=60 [facility] Comment on above: Performed By: #### L IPID, BMP #### [facility] [address] [place] [address] Dr. Jag Waldrop EGFR-NON AF CITIZEN OF [place] 48 mL/min/1.73m2 Critically low >=60 [facility] Comment on above: Performed By: #### L IPID, BMP #### [facility] [address] [place] [address] Dr. Jag Waldrop Globulin (S) [Mass/Vol] 3.3 g/dL Normal [facility] Comment on above: Performed By: #### L IPID, BMP #### [facility] [address] [address] [address] Jag Waldrop Glucose [Mass/Vol] 111 mg/dL Critically high 74-106 T [facility] Comment on above: Performed By: #### L IPID, BMP #### [facility] [address] [place] [address] Dr. Jag Waldrop Potassium [Moles/Vol] 3.8 mmol/L Normal 3.5-5.1 [facility] Comment on above: Performed By: #### L IPID, BMP #### [facility] [address] [place] [address] Dr. Jag Waldrop Protein [Mass/Vol] 7.2 g/dL Normal 6.4-8.[address] [facility] Comment on above: Performed By: #### L IPID, BMP #### [facility] [address] [place] [address] Dr. Jag Waldrop Sodium [Moles/Vol] 144 mmol/L Normal 136-145 [facility] Comment on above: Performed By: #### L IPID, BMP #### [facility] [address] [place] [address] Dr. Jag Waldrop Urea nitrogen [Mass/Vol] 19.0 mg/dL Critically high 7.0-18.0 [facility] Comment on above: Performed By: #### L IPID, BMP #### [facility] [address] [place] [address] Dr. Jag Waldrop Urea nitrogen/Creatinine [Mass ratio] 16.1 mg/mg Normal [facility] Comment on above: Performed By: #### L IPID, BMP #### [facility] [address] [address] [address] Jag Waldrop PROTIMEon 09-07-2022 INR Coag (PPP) [Relative time] {INR} Normal [facility] Comment on above: Performed By: #### P T #### [facility] [address] [address] [address] Jag Waldrop INR GUIDELINES SEE BELOW Normal [facility] Comment on above: Result Comment: MARTIN RED INR: 2.0 - 3.0 CONDITIONS NOT LISTED BELOW 2.5 - 3.5 FOR PROSTHETIC HEART VALVE REPLACEMENT 2.5 - 3.5 RECURRENT THROMBOSIS Performed By: #### P T #### [facility] [address] [address] [address] Jag Waldrop PT Coag (PPP) [Time] 9.7 s Normal 9.0-11.6 [facility] Comment on above: Performed By: #### P T #### [facility] [address] [place] [address] Dr. Jag Waldrop TROPONIN, HIGH SENSITIVITYon 09-07-2022 HSTROP 17.8 pg/mL Normal 4.0-51.3 [facility] Comment on above: Result Comment: CUT- OFF POINTS HAVE BEEN ESTABLISHED BASED ON THE FOURTH UNIVERSAL DEFINITIONS OF MYOCARDIAL INFARCTION. THE UPPER REFERENCE LIMIT (URL) OF TROPONIN, DEFINED THE 99TH PERCENTILE OF cTnI DISTRIBUTION IN A REFERENCE POPULATION, HAS BEEN CONFIRMED THE DECISION THRESHOLD FOR ME DIAGNOSIS. Performed By: #### L IPID, BMP #### [facility] [address] [place] [address] Dr. Jag Waldrop XR CHEST 2 Von [...] WAN JENKINS Date: 2022-09-07 16:47 Normal [facility] GLYCOHEMOGLOBIN A1Con 2022 ADA RECOMMENDATION SEE BELOW Normal [facility] Comment on above: Result Comment: ADA RECOMMENDED LIMIT 4.0 - 6.0 ADA THERAPEUTIC TARGET < 7.0 ACTION SUGGESTED > 7.0 Performed By: #### L TESHA, BMP #### [facility] [address] [place] [address] Dr. Jag Waldrop Glucose [Mass/Vol] 120 mg/dL Normal [facility] Comment on above: Performed By: #### L TESHA, BMP #### [facility] [address] [place] [address] Dr. Jag Waldrop HbA1c (Bld) [Mass fraction] 5.8 % Normal 4.5-6.2 [facility] Comment on above: Performed By: #### L TESHA BMP #### [facility] [address] [place] [address] Dr. Jag Waldrop PROF CHEM 8 (BAS METB)on Anion gap [Moles/Vol] 13.2 mmol/L Normal [facility] Comment on above: Performed By: #### B MP #### [facility] [address] [place] [address] Dr. Jag Waldrop Calcium [Mass/Vol] 9.0 mg/dL Normal 8.5-10.[address] [facility] Comment on above: Performed By: #### B MP #### [facility] [address] [place] [address] Dr. Jag Waldrop Chloride [Moles/Vol] 107 mmol/L Normal 98-107 [facility] Comment on above: Performed By: #### B MP #### [facility] [address] [place] [address] Dr. Jag Waldrop CO2 [Moles/Vol] 26.3 mmol/L Normal 21.0-32.0 [facility] Comment on above: Performed By: #### B MP #### [facility] [address] [place] [address] Dr. Jag Waldrop Creatinine [Mass/Vol] 1.03 mg/dL Critically high 0.55-1.02 [facility] Comment on above: Performed By: #### B MP #### [facility] [address] [address] [address] Jag Waldrop EGFR-AF [place] >60 Normal >=60 [facility] Comment on above: Performed By: #### B MP #### [facility] [address] [address] [address] Jag Waldrop EGFR-NON AF [place] 56 mL/min/1.73m2 Critically low >=60 [facility] Comment on above: Performed By: #### B MP #### [facility] [address] [address] [address] Jag Waldrop Glucose [Mass/Vol] 149 mg/dL Critically high 74-106 T [facility] Comment on above: Performed By: #### B MP #### [facility] [address] [address] [address] Jag Waldrop Potassium [Moles/Vol] 4.5 mmol/L Normal 3.5-5.1 [facility] Comment on above: Performed By: #### B MP #### [facility] [address] [address] [address] Jag Waldrop Sodium [Moles/Vol] 142 mmol/L Normal 136-145 [facility] Comment on above: Performed By: #### B MP #### [facility] [address] [address] [address] Jag Waldrop Urea nitrogen [Mass/Vol] 22.0 mg/dL Critically high 7.0-18.0 [facility] Comment on above: Performed By: #### B MP #### [facility] [address] [address] [address] Jag Waldrop Urea nitrogen/Creatinine [Mass ratio] 21.4 mg/mg Normal [facility] Comment on above: Performed By: #### B MP #### [facility] [id number] Jag Waldrop CT ABD/PELVIS WO CONon [...] NATHAN COLE Date: 2022-05-29 22:50 Normal [facility] US KVNG DOP LEG RTon [...] LUZ COELLO Date: 2022-05-29 22:42 Normal [facility] CBC AUTO DIFFon 05-29-2022 BASO # 0.1 103/ul Normal 0.0-0.1 [facility] Comment on above: Performed By: #### L IPID, BMP #### [facility] [address] [place] [address] Dr. Jag Waldrop Basophils/100 WBC (Bld) 0.7 % Normal 0.2-2.0 [facility] Comment on above: Performed By: #### L IPID, BMP #### [facility] [address] [place] [address] Dr. Jag Waldrop EO # 0.1 103/ul Normal 0.0-0.7 [facility] Comment on above: Performed By: #### L IPID, BMP #### [facility] [address] [place] [address] Dr. Jag Waldrop Eosinophils/100 WBC (Bld) 1.5 % Normal 0.9-7.0 [facility] Comment on above: Performed By: #### L IPID, BMP #### [facility] [address] [place] [address] Dr. Jag Waldrop Erythrocyte distribution width (RBC) [Ratio] 13.9 % Normal 11.0-15.0 [facility] Comment on above: Performed By: #### L IPID, BMP #### [facility] [address] [place] [address] Dr. Jag Waldrop Hematocrit (Bld) [Volume fraction] 34.2 % Critically low 36.0-48.0 [facility] Comment on above: Performed By: #### L IPID, BMP #### [facility] [address] [place] [address] Dr. Jag Waldrop Hemoglobin (Bld) [Mass/Vol] 10.9 g/dL Critically low 12.0-16.0 [facility] Comment on above: Performed By: #### L IPID, BMP #### [facility] [address] [place] [address] Dr. Jag Waldrop IG # 0.02 10e3/ul Normal 0.00-0.03 [facility] Comment on above: Performed By: #### L IPID, BMP #### [facility] [address] [place] [address] Dr. Jag Waldrop IG % 0.2 % Normal 0.0-0.5 [facility] Comment on above: Performed By: #### L IPID, BMP #### [facility] [address] [address] [address] Jag Waldrop LYMPH # 2.5 103/ul Normal 1.2-3.8 [facility] Comment on above: Performed By: #### L IPID, BMP #### [facility] [address] [place] [address] Dr. Jag Waldrop Lymphocytes/100 WBC (Bld) 30.4 % Normal 20.5-60.0 [facility] Comment on above: Performed By: #### L IPID, BMP #### [facility] [address] [place] [address] Dr. Jag Waldrop MANUAL DIFF REQ NO Normal [facility] Comment on above: Performed By: #### L IPID, BMP #### [facility] [address] [place] [address] Dr. Jag Waldrop MCH (RBC) [Entitic mass] 27.1 pg Normal 26.7-34.0 [facility] Comment on above: Performed By: #### L IPID, BMP #### [facility] [address] [place] [address] Dr. Jag Waldrop MCHC (RBC) [Mass/Vol] 31.9 g/dL Normal 29.9-35.2 [facility] Comment on above: Performed By: #### L IPID, BMP #### [facility] [address] [place] [address] Dr. Jag Waldrop MCV (RBC) [Entitic vol] 85.1 fL Normal 81.0-99.0 [facility] Comment on above: Performed By: #### L IPID, BMP #### [facility] [address] [place] [address] Dr. Jag Waldrop MONO # 0.5 103/ul Normal 0.3-0.8 [facility] Comment on above: Performed By: #### L IPID, BMP #### [facility] [address] [address] [address] Jag Waldrop Monocytes/100 WBC (Bld) 6.7 % Normal 1.7-12.0 [facility] Comment on above: Performed By: #### L IPID, BMP #### [facility] [address] [address] [address] Jag Waldrop NEUT # 4.9 103/ul Normal 1.4-6.5 [facility] Comment on above: Performed By: #### L IPID, BMP #### [facility] [address] [address] [address] Jag Waldrop Neutrophils/100 WBC (Bld) 60.5 % Normal 43.0-75.0 [facility] Comment on above: Performed By: #### L IPID, BMP #### [facility] [address] [place] [address] Dr. Jag Waldrop Platelet mean volume (Bld) [Entitic vol] 10.3 fL Normal 9.5-13.5 [facility] Comment on above: Performed By: #### L IPID, BMP #### [facility] [address] [place] [address] Dr. Jag Waldrop PLT 256 103/ul Normal 150-450 [facility] Comment on above: Performed By: #### L IPID, BMP #### [facility] [address] [address] [address] Jag Waldrop RBC 4.02 106/ul Critically low 4.20-5.40 [facility] Comment on above: Performed By: #### L IPID, BMP #### [facility] [address] [address] [address] Jag Waldrop WBC 8.1 103/ul Normal 4.0-11.0 [facility] Comment on above: Performed By: #### L IPID, BMP #### [facility] [address] [place] [address] Dr. Jag Waldrop ER URINE PROFILEon 3 Bilirubin Ql (U) Negative Normal NEGATIVE [facility] Comment on above: Performed By: #### L IPID, BMP #### [facility] [address] [place] [address] Dr. Jag Waldrop Clarity (U) CLEAR Normal CLEAR [facility] Comment on above: Performed By: #### L IPID, BMP #### [facility] [address] [place] [address] Dr. Jag Waldrop Color (U) YELLOW Normal YELLOW [facility] Comment on above: Performed By: #### L IPID, BMP #### [facility] [address] [place] [address] Dr. Jag Waldrop ERUAHTabitha A micrscopic examination will be performed if indicated. Normal [facility] Comment on above: Performed By: #### L IPID, BMP #### [facility] [address] [place] [address] Dr. Jag Waldrop Glucose Ql (U) Negative Normal NEGATIVE [facility] Comment on above: Performed By: #### L IPID, BMP #### [facility] [address] [place] [address] Dr. Jag Waldrop Hemoglobin Ql (U) Negative Normal NEGATIVE [facility] Comment on above: Performed By: #### L IPID, BMP #### [facility] [address] [place] [address] Dr. Jag Waldrop Ketones Ql (U) 15 mg/dl Abnormal NEGATIVE [facility] Comment on above: Performed By: #### L IPID, BMP #### [facility] [address] [place] [address] Dr. Jag Waldrop LEUKOCYTES TRACE Abnormal NEGATIVE [facility] Comment on above: Performed By: #### L IPID, BMP #### [facility] [address] [place] [address] Dr. Jag Waldrop Nitrite Ql (U) Negative Normal NEGATIVE [facility] Comment on above: Performed By: #### L IPID, BMP #### [facility] [address] [place] [address] Dr. Jag Waldrop pH (U) 5.5 [pH] Normal 5-9 [facility] Comment on above: Performed By: #### L IPID, BMP #### [facility] [address] [place] [address] Dr. Jag Waldrop SPEC GRAVITY 1.020 Normal 1.005-<=1.025 [facility] Comment on above: Performed By: #### L IPID, BMP #### [facility] [address] [place] [address] Dr. Jag Waldrop UA PROTEIN Negative Normal NEGATIVE/ TRACE [facility] Comment on above: Performed By: #### L IPID, BMP #### [facility] [address] [place] [address] Dr. Jag Waldrop UR MICRO IND INDICATED Normal [facility] Comment on above: Performed By: #### L IPID, BMP #### [facility] [address] [place] [address] Dr. Jag Waldrop Urobilinogen Qn (U) 0.2 {Chris'U}/dL Normal 0.2 - 1. 0 [facility] Comment on above: Performed By: #### L IPID, BMP #### [facility] [address] [place] [address] Dr. Jag Waldrop PROF CHEM 8 (BAS METB)on Anion gap [Moles/Vol] 14.2 mmol/L Normal [facility] Comment on above: Performed By: #### B MP #### [facility] [address] [place] [address] Dr. Jag Waldrop Calcium [Mass/Vol] 9.1 mg/dL Normal 8.5-10.1 [facility] Comment on above: Performed By: #### B MP #### [facility] [address] [place] [address] Dr. Jag Waldrop Chloride [Moles/Vol] 106 mmol/L Normal 98-107 [facility] Comment on above: Performed By: #### B MP #### [facility] [address] [place] [address] Dr. Jag Waldrop CO2 [Moles/Vol] 23.5 mmol/L Normal 21.0-32.0 [facility] Comment on above: Performed By: #### B MP #### [facility] [address] [address] [address] Jag Waldrop Creatinine [Mass/Vol] 1.29 mg/dL Critically high 0.55-1.02 [facility] Comment on above: Performed By: #### B MP #### [facility] [address] [address] [address] Jag Waldrop EGFR-AF [place] 53 mL/min/1.73m2 Critically low >=60 [facility] Comment on above: Performed By: #### B MP #### [facility] [address] [address] [address] Jag Waldrop EGFR-NON AF [place] 44 mL/min/1.73m2 Critically low >=60 [facility] Comment on above: Performed By: #### B MP #### [facility] [address] [address] [address] Jag Waldrop Glucose [Mass/Vol] 93 mg/dL Normal 74-106 [facility] Comment on above: Performed By: #### B MP #### [facility] [address] [address] [address] Jag Waldrop Potassium [Moles/Vol] 3.7 mmol/L Normal 3.5-5.1 [facility] Comment on above: Performed By: #### B MP #### [facility] [address] [address] [address] Jag Waldrop Sodium [Moles/Vol] 140 mmol/L Normal 136-145 [facility] Comment on above: Performed By: #### B MP #### [facility] [address] [address] [address] Jag Waldrop Urea nitrogen [Mass/Vol] 24.0 mg/dL Critically high 7.0-18.0 [facility] Comment on above: Performed By: #### B MP #### [facility] [address] [address] [address] Jag Waldrop Urea nitrogen/Creatinine [Mass ratio] 18.6 mg/mg Normal [facility] Comment on above: Performed By: #### B MP #### [facility] [address] [place] [address] Dr. Jag Waldrop URINE MICROSCOPIC ONLYon BACTERIA TRACE Abnormal NONE SEEN [facility] Comment on above: Performed By: #### L IPID, BMP #### [facility] [address] [place] [address] Dr. Jag Waldrop Bacteria identified Cx Nom (U) NOT INDICATED Normal [facility] Comment on above: Performed By: #### L IPID, BMP #### [facility] [address] [place] [address] Dr. Jag Waldrop CAST NONE SEEN Normal NONE SEEN [facility] Comment on above: Performed By: #### L IPID, BMP #### [facility] [address] [place] [address] Dr. Jag Waldrop Crystals LM Nom (Urine sed) NONE SEEN Normal NONE SEEN [facility] Comment on above: Performed By: #### L IPID, BMP #### [facility] [address] [place] [address] Dr. Jag Waldrop Epithelial cells LM Ql (Urine sed) RARE Normal NONE SEEN /RARE [facility] Comment on above: Performed By: #### L IPID, BMP #### [facility] [address] [place] [address] Dr. Jag Waldrop MUCOUS NONE SEEN Normal NONE SEEN [facility] Comment on above: Performed By: #### L IPID, BMP #### [facility] [address] [place] [address] Dr. Jag Waldrop RBC 5-10 Abnormal 0-2 [facility] Comment on above: Performed By: #### L IPID, BMP #### [facility] [address] [place] [address] Dr. Jag Waldrop WBC 0-2 Abnormal NONE SEEN [facility] Comment on above: Performed By: #### L IPID, BMP #### [facility] [address] [place] [address] Dr. Jag Waldrop MG MAMM SCREEN 3D ORESTES CADon 12-14-2022 MG MAMM SCREEN 3D ORESTES CAD Patient: PETR, SHERLY A. Exam Date: 03/29/2022 : 1970 Gender:F Ordering : AGUST[employer] Admission #: [id number] Family : Order #: [id number] CLICK HERE TO VIEW EXAM RADIOLOGY REPORT [...] head/neck cancer at age 73. LOCATION: [facility] BREAST COMPOSITION: Scattered areas fibroglandular density. [...] M.D. on 03/29/2022 at 15:31 Normal [facility] MRI LSPINE WO W CONon 2021 [...] KATHY HENDRICKS Date: 2022-03-23 11:26 Normal [facility] MRI TSPINE WO W CONon 2021 [...] KATHY HENDRICKS Date: 2022-03-23 12:50 Normal [facility] PROF CHEM 8 (BAS METB)on Anion gap [Moles/Vol] 11.8 mmol/L Normal [facility] Comment on above: Performed By: #### P OCGLUC #### [facility] [address] [place] [address] Dr. Jag Waldrop Calcium [Mass/Vol] 9.0 mg/dL Normal 8.5-10.1 [facility] Comment on above: Performed By: #### P OCGLUC #### [facility] [address] [address] [address] Jag Waldrop Chloride [Moles/Vol] 107 mmol/L Normal 98-107 [facility] Comment on above: Performed By: #### P OCGLUC #### [facility] [address] [address] [address] Jag Waldrop CO2 [Moles/Vol] 30.2 mmol/L Normal 21.0-32.0 [facility] Comment on above: Performed By: #### P OCGLUC #### [facility] [address] [address] [address] Jag Waldrop Creatinine [Mass/Vol] 1.32 mg/dL Critically high 0.55-1.02 [facility] Comment on above: Performed By: #### P OCGLUC #### [facility] [address] [address] [address] Jag Waldrop EGFR-AF [place] 51 mL/min/1.73m2 Critically low >=60 [facility] Comment on above: Performed By: #### P OCGLUC #### [facility] [address] [address] [address] Jag Waldrop EGFR-NON AF [place] 42 mL/min/1.73m2 Critically low >=60 [facility] Comment on above: Performed By: #### P OCGLUC #### [facility] [address] [address] [address] Jag Waldrop Glucose [Mass/Vol] 117 mg/dL Critically high 74-106 [facility] Comment on above: Performed By: #### P OCGLUC #### [facility] [address] [address] [address] Jag Waldrop Potassium [Moles/Vol] 4.0 mmol/L Normal 3.5-5.1 [facility] Comment on above: Performed By: #### P OCGLUC #### [facility] [address] [address] [address] Jag Waldrop Sodium [Moles/Vol] 145 mmol/L Normal 136-145 [facility] Comment on above: Performed By: #### P OCGLUC #### [facility] [address] [place] [address] Dr. Jag Waldrop Urea nitrogen [Mass/Vol] 23.0 mg/dL Critically high 7.0-18.0 [facility] Comment on above: Performed By: #### P OCGLUC #### [facility] [address] [place] [address] Dr. Jag Waldrop Urea nitrogen/Creatinine [Mass ratio] 17.4 mg/mg Normal [facility] Comment on above: Performed By: #### P OCGLUC #### [facility] [address] [place] [address] Dr. Jag Waldrop CBC AUTO DIFFon 02-19-2022 BASO # 0.1 103/ul Normal 0.0-0.1 [facility] Comment on above: Performed By: #### P OCGLUC #### [facility] [address] [place] [address] Dr. Jag Waldrop Basophils/100 WBC (Bld) 1.0 % Normal 0.2-2.0 [facility] Comment on above: Performed By: #### P OCGLUC #### [facility] [address] [place] [address] Dr. Jag Waldrop EO # 0.1 103/ul Normal 0.0-0.7 [facility] Comment on above: Performed By: #### P OCGLUC #### [facility] [address] [place] [address] Dr. Jag Waldrop Eosinophils/100 WBC (Bld) 1.9 % Normal 0.9-7.0 [facility] Comment on above: Performed By: #### P OCGLUC #### [facility] [address] [place] [address] Dr. Jag Waldrop Erythrocyte distribution width (RBC) [Ratio] 13.2 % Normal 11.0-15.0 [facility] Comment on above: Performed By: #### P OCGLUC #### [facility] [address] [address] [address] Jag Waldrop Hematocrit (Bld) [Volume fraction] 36.7 % Normal 36.0-48.0 [facility] Comment on above: Performed By: #### P OCGLUC #### [facility] [address] [address] [address] Jag Waldrop Hemoglobin (Bld) [Mass/Vol] 11.4 g/dL Critically low 12.0-16.0 [facility] Comment on above: Performed By: #### P OCGLUC #### [facility] [address] [address] [address] Jag Waldrop IG # 0.03 10e3/ul Normal 0.00-0.03 [facility] Comment on above: Performed By: #### P OCGLUC #### [facility] [address] [place] [address] Dr. Jag Waldrop IG % 0.5 % Normal 0.0-0.5 [facility] Comment on above: Performed By: #### P OCGLUC #### [facility] [address] [place] [address] Dr. Jag Waldrop LYMPH # 2.1 103/ul Normal 1.2-3.8 [facility] Comment on above: Performed By: #### P OCGLUC #### [facility] [address] [place] [address] Dr. Jag Waldrop Lymphocytes/100 WBC (Bld) 34.1 % Normal 20.5-60.0 [facility] Comment on above: Performed By: #### P OCGLUC #### [facility] [address] [place] [address] Dr. Jag Waldrop MANUAL DIFF REQ NO Normal [facility] Comment on above: Performed By: #### P OCGLUC #### [facility] [address] [place] [address] Dr. Jag Waldrop MCH (RBC) [Entitic mass] 28.4 pg Normal 26.7-34.0 [facility] Comment on above: Performed By: #### P OCGLUC #### [facility] [address] [address] [address] Jag Waldrop MCHC (RBC) [Mass/Vol] 31.1 g/dL Normal 29.9-35.2 [facility] Comment on above: Performed By: #### P OCGLUC #### [facility] [address] [place] [address] Dr. Jag Waldrop MCV (RBC) [Entitic vol] 91.5 fL Normal 81.0-99.0 [facility] Comment on above: Performed By: #### P OCGLUC #### [facility] [address] [address] [address] Jag Waldrop MONO # 0.5 103/ul Normal 0.3-0.8 [facility] Comment on above: Performed By: #### P OCGLUC #### [facility] [address] [place] [address] Dr. Jag Waldrop Monocytes/100 WBC (Bld) 8.4 % Normal 1.7-12.0 [facility] Comment on above: Performed By: #### P OCGLUC #### [facility] [address] [place] [address] Dr. Jag Waldrop NEUT # 3.3 103/ul Normal 1.4-6.5 [facility] Comment on above: Performed By: #### P OCGLUC #### [facility] [address] [place] [address] Dr. Jag Waldrop Neutrophils/100 WBC (Bld) 54.1 % Normal 43.0-75.0 [facility] Comment on above: Performed By: #### P OCGLUC #### [facility] [address] [place] [address] Dr. Jag Waldrop Platelet mean volume (Bld) [Entitic vol] 10.6 fL Normal 9.5-13.5 [facility] Comment on above: Performed By: #### P OCGLUC #### [facility] [address] [place] [address] Dr. Jag Waldrop PLT 294 103/ul Normal 150-450 [facility] Comment on above: Performed By: #### P OCGLUC #### [facility] [address] [address] [address] Jag Waldrop RBC 4.01 106/ul Critically low 4.20-5.40 [facility] Comment on above: Performed By: #### P OCGLUC #### [facility] [address] [address] [address] Jag Waldorp WBC 6.2 103/ul Normal 4.0-11.0 [facility] Comment on above: Performed By: #### P OCGLUC #### [facility] [address] [address] [address] Jag Waldrop CRPon 02-19-2022 CRP [Mass/Vol] mg/L Normal <=1.0 [facility] Comment on above: Performed By: #### E RUR #### [facility] [address] [address] [address] TSPINE WO CONon [...] ALEX AVINA Date: 2022-02-19 19:25 Normal [facility] ER URINE PROFILEon 2 Bilirubin Ql (U) Negative Normal NEGATIVE [facility] Comment on above: Performed By: #### P OCGLUC #### [facility] [address] [address] [address] Jag Waldrop Clarity (U) CLEAR Normal CLEAR [facility] Comment on above: Performed By: #### P OCGLUC #### [facility] [address] [place] [address] Dr. Jag Waldrop Color (U) LT. YELLOW Normal YELLOW [facility] Comment on above: Performed By: #### P OCGLUC #### [facility] [address] [address] [address] Jag SAL A micrscopic examination will be performed if indicated. Normal [facility] Comment on above: Performed By: #### P OCGLUC #### [facility] [address] [place] [address] Dr. Jag Waldrop Glucose Ql (U) Negative Normal NEGATIVE [facility] Comment on above: Performed By: #### P OCGLUC #### [facility] [address] [place] [address] Dr. Jag Waldrop Hemoglobin Ql (U) Negative Normal NEGATIVE [facility] Comment on above: Performed By: #### P OCGLUC #### [facility] [address] [place] [address] Dr. Jag Waldrop Ketones Ql (U) Negative Normal NEGATIVE [facility] Comment on above: Performed By: #### P OCGLUC #### [facility] [address] [place] [address] Dr. Jag Waldrop LEUKOCYTES Negative Normal NEGATIVE [facility] Comment on above: Performed By: #### P OCGLUC #### [facility] [address] [place] [address] Dr. Jag Waldrop Nitrite Ql (U) Negative Normal NEGATIVE [facility] Comment on above: Performed By: #### P OCGLUC #### [facility] [address] [place] [address] Dr. Jag Waldrop pH (U) 5.5 [pH] Normal 5-9 [facility] Comment on above: Performed By: #### P OCGLUC #### [facility] [address] [place] [address] Dr. Jag Waldrop SPEC GRAVITY 1.020 Normal 1.005-<=1.025 [facility] Comment on above: Performed By: #### P OCGLUC #### [facility] [address] [place] [address] Dr. Jag Waldrop UA PROTEIN Negative Normal NEGATIVE/ TRACE [facility] Comment on above: Performed By: #### P OCGLUC #### [facility] [address] [place] [address] Dr. Jag Waldrop UR MICRO IND NOT INDICATED Normal [facility] Comment on above: Performed By: #### P OCGLUC #### [facility] [address] [place] [address] Dr. Jag Waldrop Urobilinogen Qn (U) 0.2 {Chris'U}/dL Normal 0.2 - 1. 0 [facility] Comment on above: Performed By: #### P OCGLUC #### [facility] [address] [place] [address] Dr. Jag Waldrop PROF CHEM 8 (BAS METB)on Anion gap [Moles/Vol] 10.8 mmol/L Normal [facility] Comment on above: Performed By: #### E RUR #### [facility] [address] [place] [address] Dr. Jag Waldrop Calcium [Mass/Vol] 9.0 mg/dL Normal 8.5-10.1 [facility] Comment on above: Performed By: #### E RUR #### [facility] [address] [place] [address] Dr. Jag Waldrop Chloride [Moles/Vol] 106 mmol/L Normal 98-107 [facility] Comment on above: Performed By: #### E RUR #### [facility] [address] [place] [address] Dr. Jag Waldrop CO2 [Moles/Vol] 28.1 mmol/L Normal 21.0-32.0 [facility] Comment on above: Performed By: #### E RUR #### [facility] [address] [place] [address] Dr. Jag Waldrop Creatinine [Mass/Vol] 1.06 mg/dL Critically high 0.55-1.02 [facility] Comment on above: Performed By: #### E RUR #### [facility] [address] [place] [address] Dr. Jag Waldrop EGFR-AF [place]IZ[place] >60 Normal >=60 [facility] Comment on above: Performed By: #### E RUR #### [facility] [address] [address] [address] Jag Waldrop EGFR-NON AF [place]IZ[place] 55 mL/min/1.73m2 Critically low >=60 [facility] Comment on above: Performed By: #### E RUR #### [facility] [address] [place] [address] Dr. Jag Waldrop Glucose [Mass/Vol] 89 mg/dL Normal 74-106 [facility] Comment on above: Performed By: #### E RUR #### [facility] [address] [place] [address] Dr. Jag Waldrop Potassium [Moles/Vol] 3.9 mmol/L Normal 3.5-5.1 [facility] Comment on above: Performed By: #### E RUR #### [facility] [address] [place] [address] Dr. Jag Waldrop Sodium [Moles/Vol] 141 mmol/L Normal 136-[address] [facility] Comment on above: Performed By: #### E RUR #### [facility] [address] [place] [address] Dr. Jag Waldrop Urea nitrogen [Mass/Vol] 19.0 mg/dL Critically high 7.0-18.0 [facility] Comment on above: Performed By: #### E RUR #### [facility] [address] [place] [address] Dr. Jag Waldrop Urea nitrogen/Creatinine [Mass ratio] 17.9 mg/mg Normal [facility] Comment on above: Performed By: #### E RUR #### [facility] [address] [place] [address] Dr. Jag Waldrop SED RATE [facility] 2021 SED RATE 19 mm/hr Normal <=30 [facility] Comment on above: Performed By: #### L IPID, BMP #### [facility] [address] [place] [address] Dr. Jag Waldrop PROF CHEM 8 (BAS METB)on Anion gap [Moles/Vol] 17.3 mmol/L Normal [facility] Comment on above: Performed By: #### L IPID, BMP #### [facility] [address] [place] [address] Dr. Jag Waldrop Calcium [Mass/Vol] 9.2 mg/dL Normal 8.5-10.1 [facility] Comment on above: Performed By: #### L IPID, BMP #### [facility] [address] [place] [address] Dr. Jag Waldrop Chloride [Moles/Vol] 108 mmol/L Critically high 98-107 [facility] Comment on above: Performed By: #### L IPID, BMP #### [facility] [address] [place] [address] Dr. Jag Waldrop CO2 [Moles/Vol] 20.0 mmol/L Critically low 21.0-32.0 [facility] Comment on above: Performed By: #### L IPID, BMP #### [facility] [address] [place] [address] Dr. Jag Waldrop Creatinine [Mass/Vol] 1.40 mg/dL Critically high 0.55-1.02 [facility] Comment on above: Performed By: #### L IPID, BMP #### [facility] [address] [place] [address] Dr. Jag Waldrop EGFR-AF [place] 48 mL/min/1.73m2 Critically low >=60 [facility] Comment on above: Performed By: #### L IPID, BMP #### [facility] [address] [place] [address] Dr. Jag Waldrop EGFR-NON AF [place] 40 mL/min/1.73m2 Critically low >=60 [facility] Comment on above: Performed By: #### L IPID, BMP #### [facility] [address] [address] [address] Jag Waldrop Glucose [Mass/Vol] 126 mg/dL Critically high 74-106 T [facility] Comment on above: Performed By: #### L IPID, BMP #### [facility] [address] [place] [address] Dr. Jag Waldrop Potassium [Moles/Vol] 5.3 mmol/L Critically high 3.5-5.1 [facility] Comment on above: Performed By: #### L IPID, BMP #### [facility] [address] [place] [address] Dr. Jag Waldrop Sodium [Moles/Vol] 140 mmol/L Normal 136-145 [facility] Comment on above: Performed By: #### L IPID, BMP #### [facility] [address] [place] [address] Dr. Jag Waldrop Urea nitrogen [Mass/Vol] 31.0 mg/dL Critically high 7.0-18.0 [facility] Comment on above: Performed By: #### L IPID, BMP #### [facility] [address] [place] [address] Dr. Jag Waldrop Urea nitrogen/Creatinine [Mass ratio] 22.1 mg/mg Normal [facility] Comment on above: Performed By: #### L IPID, BMP #### [facility] [address] [place] [address] Dr. Jag Waldrop CBC AUTO DIFFon 01-23-2022 BASO # 0.1 103/ul Normal 0.0-0.1 [facility] Comment on above: Performed By: #### C BC #### [facility] [address] [place] [address] Dr. Jag Waldrop Basophils/100 WBC (Bld) 1.0 % Normal 0.2-2.0 [facility] Comment on above: Performed By: #### C BC #### [facility] [address] [place] [address] Dr. Jag Waldrop EO # 0.2 103/ul Normal 0.0-0.7 [facility] Comment on above: Performed By: #### C BC #### [facility] [address] [place] [address] Dr. Jag Waldrop Eosinophils/100 WBC (Bld) 3.3 % Normal 0.9-7.0 [facility] Comment on above: Performed By: #### C BC #### [facility] [address] [place] [address] Dr. Jag Waldrop Erythrocyte distribution width (RBC) [Ratio] 13.2 % Normal 11.0-15.0 [facility] Comment on above: Performed By: #### C BC #### [facility] [address] [place] [address] Dr. Jag Waldrop Hematocrit (Bld) [Volume fraction] 35.6 % Critically low 36.0-48.0 [facility] Comment on above: Performed By: #### C BC #### [facility] [address] [place] [address] Dr. Jag Waldrop Hemoglobin (Bld) [Mass/Vol] 10.6 g/dL Critically low 12.0-16.0 [facility] Comment on above: Performed By: #### C BC #### [facility] [address] [place] [address] Dr. Jag Waldrop IG # 0.01 10e3/ul Normal 0.00-0.03 [facility] Comment on above: Performed By: #### C BC #### [facility] [address] [place] [address] Dr. Jag Waldrop IG % 0.2 % Normal 0.0-0.5 [facility] Comment on above: Performed By: #### C BC #### [facility] [address] [place] [address] Dr. Jag Waldrop LYMPH # 1.7 103/ul Normal 1.2-3.8 [facility] Comment on above: Performed By: #### C BC #### [facility] [address] [place] [address] Dr. Jag Waldrop Lymphocytes/100 WBC (Bld) 35.4 % Normal 20.5-60.0 [facility] Comment on above: Performed By: #### C BC #### [facility] [address] [place] [address] Dr. Jag Waldrop MANUAL DIFF REQ NO Normal [facility] Comment on above: Performed By: #### C BC #### [facility] [address] [place] [address] Dr. Jag Waldrop MCH (RBC) [Entitic mass] 29.0 pg Normal 26.7-34.0 [facility] Comment on above: Performed By: #### C BC #### [facility] [address] [place] [address] Dr. Jag Waldrop MCHC (RBC) [Mass/Vol] 29.8 g/dL Critically low 29.9-35.2 [facility] Comment on above: Performed By: #### C BC #### [facility] [address] [place] [address] Dr. Jag Waldrop MCV (RBC) [Entitic vol] 97.3 fL Normal 81.0-99.0 [facility] Comment on above: Performed By: #### C BC #### [facility] [address] [place] [address] Dr. aJg Waldrop MONO # 0.3 103/ul Normal 0.3-0.8 [facility] Comment on above: Performed By: #### C BC #### [facility] [address] [place] [address] Dr. Jag Waldrop Monocytes/100 WBC (Bld) 6.8 % Normal 1.7-12.0 [facility] Comment on above: Performed By: #### C BC #### [facility] [address] [place] [address] Dr. Jag Waldrop NEUT # 2.6 103/ul Normal 1.4-6.5 [facility] Comment on above: Performed By: #### C BC #### [facility] [address] [place] [address] Dr. Jag Waldrop Neutrophils/100 WBC (Bld) 53.3 % Normal 43.0-75.0 [facility] Comment on above: Performed By: #### C BC #### [facility] [address] [address] [address] Jag Waldrop Platelet mean volume (Bld) [Entitic vol] 11.0 fL Normal 9.5-13.5 [facility] Comment on above: Performed By: #### C BC #### [facility] [address] [address] [address] Jag Waldrop PLT 230 103/ul Normal 150-450 [facility] Comment on above: Performed By: #### C BC #### [facility] [address] [address] [address] Jag Waldrop RBC 3.66 106/ul Critically low 4.20-5.40 [facility] Comment on above: Performed By: #### C BC #### [facility] [address] [address] [address] Jag Waldrop WBC 4.8 103/ul Normal 4.0-11.0 [facility] Comment on above: Performed By: #### C BC #### [facility] [address] [address] [address] Jag Waldrop FERRITINon 01-23-2022 Ferritin [Mass/Vol] 35.0 ng/mL Normal 8.0-252.0 [facility] Comment on above: Performed By: #### L IPID, BMP #### [facility] [address] [place] [address] Dr. Jag Waldrop IRONon 01-23-2022 Iron [Mass/Vol] 71.0 ug/dL Normal 50.0-170.0 [facility] Comment on above: Performed By: #### L IPID, BMP #### [facility] [address] [place] [address] Dr. Jag Waldrop LIPID PROFILEon 01-23-2022 CHOL-HDL RATIO NORM SEE BELOW Normal [facility] Comment on above: Result Comment: 3.3 - 4.4 LOW RISK 4.4 - 7.1 AVERAGE RISK 7.1 - 11.0 MODERATE RISK >11.0 HIGH RISK Performed By: #### L IPID, BMP #### [facility] [address] [address] [address] Jag Waldrop Cholesterol [Mass/Vol] 133 mg/dL Normal <=200 [facility] Comment on above: Performed By: #### L IPID, BMP #### [facility] [address] [address] [address] Jag Waldrop Cholesterol in HDL [Mass/Vol] 41 mg/dL Normal 40-60 [facility] Comment on above: Performed By: #### L IPID, BMP #### [facility] [address] [address] [address] Jag Waldrop Cholesterol in LDL [Mass/Vol] 70.8 mg/dL Normal [facility] Comment on above: Performed By: #### L IPID, BMP #### [facility] [address] [address] [address] Jag Waldrop Cholesterol.total/C holesterol in HDL [Mass ratio] 3.2 {ratio} Normal [facility] Comment on above: Performed By: #### L IPID, BMP #### [facility] [address] [address] [address] Jag Waldrop HDL NORMAL > or = 60 mg/dl - LO W CARDIOVASCULAR RISK <40 mg/dl - HIGH CARDIOVASCULAR RISK Normal [facility] Comment on above: Performed By: #### L IPID, BMP #### [facility] [address] [address] [address] Jag Waldrop LDL CALC NORMAL SEE BELOW Normal [facility] Comment on above: Result Comment: <100 mg/dl OPTIMAL 100 - 129 mg/dl NEAR OR ABOVE OPTIMAL 130 - 159 mg/dl BORDERLINE HIGH 160 - 189 mg/dl HIGH >190 mg/dl VERY HIGH Performed By: #### L IPID, BMP #### [facility] [address] [address] [address] Jag Waldrop Triglyceride [Mass/Vol] 106 mg/dL Normal <=150 [facility] Comment on above: Performed By: #### L IPID, BMP #### [facility] [address] [address] [address] Jag Waldrop VLDL CALC 21.2 mg/dL Normal [facility] Comment on above: Performed By: #### L IPID, BMP #### [facility] [address] [place] [address] Dr. Jag Waldrop PROF CHEM 8 (BAS METB)on Anion gap [Moles/Vol] 18.2 mmol/L Normal [facility] Comment on above: Performed By: #### L IPID, BMP #### [facility] [address] [place] [address] Dr. Jag Waldrop Calcium [Mass/Vol] 9.3 mg/dL Normal 8.5-10.1 [facility] Comment on above: Performed By: #### L IPID, BMP #### [facility] [address] [place] [address] Dr. Jag Waldrop Chloride [Moles/Vol] 111 mmol/L Critically high 98-107 [facility] Comment on above: Performed By: #### L IPID, BMP #### [facility] [address] [place] [address] Dr. Jag Waldrop CO2 [Moles/Vol] 19.9 mmol/L Critically low 21.0-32.0 [facility] Comment on above: Performed By: #### L IPID, BMP #### [facility] [address] [place] [address] Dr. Jag Waldrop Creatinine [Mass/Vol] 1.27 mg/dL Critically high 0.55-1.02 [facility] Comment on above: Performed By: #### L IPID, BMP #### [facility] [address] [place] [address] Dr. Jag Waldrop EGFR-AF [place] 54 mL/min/1.73m2 Critically low >=60 [facility] Comment on above: Performed By: #### L IPID, BMP #### [facility] [address] [place] [address] Dr. Jag Waldrop EGFR-NON AF [place] 44 mL/min/1.73m2 Critically low >=60 [facility] Comment on above: Performed By: #### L IPID, BMP #### [facility] [address] [address] [address] Jag Waldrop Glucose [Mass/Vol] 129 mg/dL Critically high 74-106 [facility] Comment on above: Performed By: #### L IPID, BMP #### [facility] [address] [place] [address] Dr. Jag Waldrop Potassium [Moles/Vol] 6.1 mmol/L Critically high 3.5-5.1 [facility] Comment on above: Performed By: #### L IPID, BMP #### [facility] [address] [address] [address] Jag Waldrop Sodium [Moles/Vol] 142 mmol/L Normal 136-145 [facility] Comment on above: Performed By: #### L IPID, BMP #### [facility] [address] [place] [address] Dr. Jag Waldrop Urea nitrogen [Mass/Vol] 35.0 mg/dL Critically high 7.0-18.0 [facility] Comment on above: Performed By: #### L IPID, BMP #### [facility] [address] [place] [address] Dr. Jag Waldrop Urea nitrogen/Creatinine [Mass ratio] 27.6 mg/mg Normal [facility] Comment on above: Performed By: #### L IPID, BMP #### [facility] [address] [place] [address] Dr. Jag Waldrop VITAMIN B12on 01-23-2022 Cobalamin (Vitamin B12) [Mass/Vol] 267.0 pg/mL Normal 193.0-986.0 [facility] Comment on above: Performed By: #### L IPID, BMP #### [facility] [address] [place] [address] Dr. Jag Waldrop XR CSPINE 2_3 VIEWSon [...] KATHY HENDRICKS Date: 2022-01-12 09:39 Normal [facility] BNPon 12-21-2021 Natriuretic peptide B (Bld) [Mass/Vol] 283.0 pg/mL Normal <=900.0 [facility] Comment on above: Performed By: #### P OCGLUC #### [facility] [address] [place] [address] Dr. Jag Waldrop CBC AUTO DIFFon 12-21-2021 BASO # 0.1 103/ul Normal 0.0-0.1 [facility] Comment on above: Performed By: #### L IPID, BMP #### [facility] [address] [place] [address] Dr. Jag Waldrop Basophils/100 WBC (Bld) 0.8 % Normal 0.2-2.0 [facility] Comment on above: Performed By: #### L IPID, BMP #### [facility] [address] [place] [address] Dr. Jag Waldrop EO # 0.3 103/ul Normal 0.0-0.7 [facility] Comment on above: Performed By: #### L IPID, BMP #### [facility] [address] [place] [address] Dr. Jag Waldrop Eosinophils/100 WBC (Bld) 3.8 % Normal 0.9-7.0 [facility] Comment on above: Performed By: #### L IPID, BMP #### [facility] [address] [place] [address] Dr. Jag Waldrop Erythrocyte distribution width (RBC) [Ratio] 13.2 % Normal 11.0-15.0 [facility] Comment on above: Performed By: #### L IPID, BMP #### [facility] [address] [place] [address] Dr. Jag Waldrop Hematocrit (Bld) [Volume fraction] 34.8 % Critically low 36.0-48.0 [facility] Comment on above: Performed By: #### L IPID, BMP #### [facility] [address] [place] [address] Dr. Jag Waldrop Hemoglobin (Bld) [Mass/Vol] 10.6 g/dL Critically low 12.0-16.0 [facility] Comment on above: Performed By: #### L IPID, BMP #### [facility] [address] [place] [address] Dr. Jag Waldrop IG # 0.02 10e3/ul Normal 0.00-0.03 [facility] Comment on above: Performed By: #### L IPID, BMP #### [facility] [address] [place] [address] Dr. Jag Waldrop IG % 0.3 % Normal 0.0-0.5 [facility] Comment on above: Performed By: #### L IPID, BMP #### [facility] [address] [place] [address] Dr. Jag Waldrop LYMPH # 1.7 103/ul Normal 1.2-3.8 [facility] Comment on above: Performed By: #### L IPID, BMP #### [facility] [address] [place] [address] Dr. Jag Waldrop Lymphocytes/100 WBC (Bld) 23.8 % Normal 20.5-60.0 [facility] Comment on above: Performed By: #### L IPID, BMP #### [facility] [address] [place] [address] Dr. Jag Waldrop MANUAL DIFF REQ NO Normal [facility] Comment on above: Performed By: #### L IPID, BMP #### [facility] [address] [place] [address] Dr. Jag Waldrop MCH (RBC) [Entitic mass] 29.1 pg Normal 26.7-34.0 [facility] Comment on above: Performed By: #### L IPID, BMP #### [facility] [address] [place] [address] Dr. Jag Waldrop MCHC (RBC) [Mass/Vol] 30.5 g/dL Normal 29.9-35.2 [facility] Comment on above: Performed By: #### L IPID, BMP #### [facility] [address] [place] [address] Dr. Jag Waldrop MCV (RBC) [Entitic vol] 95.6 fL Normal 81.0-99.0 [facility] Comment on above: Performed By: #### L IPID, BMP #### [facility] [address] [place] [address] Dr. Jag Waldrop MONO # 0.7 103/ul Normal 0.3-0.8 [facility] Comment on above: Performed By: #### L IPID, BMP #### [facility] [address] [place] [address] Dr. Jag Waldrop Monocytes/100 WBC (Bld) 9.3 % Normal 1.7-12.0 [facility] Comment on above: Performed By: #### L IPID, BMP #### [facility] [address] [place] [address] Dr. Jag Waldrop NEUT # 4.4 103/ul Normal 1.4-6.5 [facility] Comment on above: Performed By: #### L IPID, BMP #### [facility] [address] [place] [address] Dr. Jag Waldrop Neutrophils/100 WBC (Bld) 62.0 % Normal 43.0-75.0 [facility] Comment on above: Performed By: #### L IPID, BMP #### [facility] [address] [place] [address] Dr. Jag Waldrop Platelet mean volume (Bld) [Entitic vol] 11.5 fL Normal 9.5-13.5 [facility] Comment on above: Performed By: #### L IPID, BMP #### [facility] [address] [place] [address] Dr. Jag Waldrop PLT 235 103/ul Normal 150-450 [facility] Comment on above: Performed By: #### L IPID, BMP #### [facility] [address] [address] [address] Jag Waldrop RBC 3.64 106/ul Critically low 4.20-5.40 [facility] Comment on above: Performed By: #### L IPID, BMP #### [facility] [address] [address] [address] Jag Waldrop WBC 7.1 103/ul Normal 4.0-11.0 [facility] Comment on above: Performed By: #### L IPID, BMP #### [facility] [address] [address] [address] Jag Waldrop CRPon 12-21-2021 CRP 1.1 mg/dL Critically high <=1.0 [facility] Comment on above: Performed By: #### B MP #### [facility] [address] [address] [address] Jag Wal[facility] SARS-CoV-2 (COVID-19) RNA PRINCE+probe Ql (Unsp spec) Not detected Normal NOT DETECTED [facility] Comment on above: Result Comment: This test is not yet approved or cleared by the [place] FDA. When there are no FDA-approved or cleared tests available, and other criteria are met, FDA can make tests available under an emergency access mechanism called an Emergency Use Authorization (EUA). The EUA for this test is supported by the [place] of Health and Human Service's (HHS's) declaration [...] Performed By: #### L IPID, BMP #### [facility] [address] [address] [address] Jag Waldrop PROF CHEM 8 (BAS METB)on Anion gap [Moles/Vol] 13.3 mmol/L Normal [facility] Comment on above: Performed By: #### B MP #### [facility] [address] [address] [address] Jag Waldrop Calcium [Mass/Vol] 8.7 mg/dL Normal 8.5-10.1 [facility] Comment on above: Performed By: #### B MP #### [facility] [address] [address] [address] Jag Waldrop Chloride [Moles/Vol] 107 mmol/L Normal 98-107 [facility] Comment on above: Performed By: #### B MP #### [facility] [address] [address] [address] Jag Waldrop CO2 [Moles/Vol] 23.2 mmol/L Normal 21.0-32.0 [facility] Comment on above: Performed By: #### B MP #### [facility] [address] [address] [address] Jag Waldrop Creatinine [Mass/Vol] 1.55 mg/dL Critically high 0.55-1.02 [facility] Comment on above: Performed By: #### B MP #### [facility] [address] [address] [address] Jag Waldrop EGFR-AF [place] 43 mL/min/1.73m2 Critically low >=60 [facility] Comment on above: Performed By: #### B MP #### [facility] [address] [address] [address] Jag Waldrop EGFR-NON AF [place]IZ[place] 35 mL/min/1.73m2 Critically low >=60 [facility] Comment on above: Performed By: #### B MP #### [facility] [address] [address] [address] Jag Waldrop Glucose [Mass/Vol] 123 mg/dL Critically high 74-106 [facility] Comment on above: Performed By: #### B MP #### [facility] [address] [address] [address] Jag Waldrop Potassium [Moles/Vol] 4.5 mmol/L Normal 3.5-5.1 [facility] Comment on above: Performed By: #### B MP #### [facility] [address] [address] [address] Jag Waldrop Sodium [Moles/Vol] 139 mmol/L Normal 136-145 [facility] Comment on above: Performed By: #### B MP #### [facility] [address] [address] [address] Jag Waldrop Urea nitrogen [Mass/Vol] 36.0 mg/dL Critically high 7.0-18.0 [facility] Comment on above: Performed By: #### B MP #### [facility] [address] [address] [address] Jag Waldrop Urea nitrogen/Creatinine [Mass ratio] 23.2 mg/mg Normal [facility] Comment on above: Performed By: #### B MP #### [facility] [address] [address] [address] Jag Waldrop SED RATE [facility] 2021 SED RATE 26 mm/hr Normal <=30 [facility] Comment on above: Performed By: #### S EDR #### [facility] [address] [address] [address] Jag Waldrop XR CHEST 2 Von [...] ALEX ALLEN Date: 2021-12-21 18:35 Normal [facility] OVA AND PARASITE EXAMINATION on 12-06-2021 Ova + Parasite Exam Final report Normal [facility] Comment on above: Result Comment: Thes e results were obtained using wet preparation(s) and trichrome stained smear. This test does not include testing for Cryptosporidium parvum, Cyclospora, or Microsporidia. Performed By: #### L IPID, BMP #### [facility] [address] [address] [address] Jag Waldrop Result 1 Comment Normal [facility] Comment on above: Result Comment: No o va, cysts, or parasites seen. . One negative specimen does not rule out the possibility of a parasitic infection. Performed By: #### L IPID, BMP #### [facility] [address] [address] [address] Jag Waldrop STOOL CULTUREon 12-05-2021 Campylobacter Culture Final report [facility] Comment on above: Performed By: #### C XSTOOL #### [facility] [address] [place] [address] Dr. Jag Waldrop E coli Shiga Toxin EIA Negative Normal Negative [facility] Comment on above: Performed By: #### C XSTOOL #### [facility] [address] [address] [address] Jag Waldrop Result 1 Comment Normal [facility] Comment on above: Result Comment: No S almonella or Shigella recovered. Performed By: #### C XSTOOL #### [facility] [address] [place] [address] Dr. Jag Waldrop Result Comment: No C ampylobacter species isolated. Salmonella/Shigella Screen Final report Normal [facility] Comment on above: Performed By: #### C XSTOOL #### [facility] [address] [address] [address] Jag Waldrop GI PANEL (PCR)on 11-30-2021 Adenovirus F 40/41 Not detected Normal NOT DETECTED [facility] Comment on above: Performed By: #### E RUR #### [facility] [address] [place] [address] Dr. Jag Waldrop Astrovirus Not detected Normal NOT DETECTED [facility] Comment on above: Performed By: #### E RUR #### [facility] [address] [place] [address] Dr. Jag Waldrop C. Diff toxin A/B Detected Critically abnormal NOT DETECTED [facility] Comment on above: Performed By: #### E RUR #### [facility] [address] [place] [address] Dr. Jag Waldrop Campylobacter Not detected Normal NOT DETECTED [facility] Comment on above: Performed By: #### E RUR #### [facility] [address] [place] [address] Dr. Jag Waldrop Cryptosporidium Not detected Normal NOT DETECTED [facility] Comment on above: Performed By: #### E RUR #### [facility] [address] [place] [address] Dr. Jag Waldrop Cyclos. Cayetanensis Not detected Normal NOT DETECTED [facility] Comment on above: Performed By: #### E RUR #### [facility] [address] [place] [address] Dr. Jag Waldrop E. Coli O157 Not Applicable Normal Not Applicable [facility] Comment on above: Performed By: #### E RUR #### [facility] [address] [place] [address] Dr. Jag Waldrop E. histolytica Not detected Normal NOT DETECTED [facility] Comment on above: Performed By: #### E RUR #### [facility] [address] [place] [address] Dr. Jag Waldrop EAEC Not detected Normal NOT DETECTED [facility] Comment on above: Performed By: #### E RUR #### [facility] [address] [place] [address] Dr. Jag Waldrop EIEC Not detected Normal NOT DETECTED [facility] Comment on above: Performed By: #### E RUR #### [facility] [address] [place] [address] Dr. Jag Waldrop EPEC Not detected Normal NOT DETECTED [facility] Comment on above: Performed By: #### E RUR #### [facility] [address] [place] [address] Dr. Jag Waldrop ETEC Not detected Normal NOT DETECTED [facility] Comment on above: Performed By: #### E RUR #### [facility] [address] [address] [address] Jag Bajwa Not detected Normal NOT DETECTED [facility] Comment on above: Performed By: #### E RUR #### [facility] [address] [address] [address] Jag TANG CONTROLS PASSED Normal [facility] Comment on above: Performed By: #### E RUR #### [facility] [address] [address] [address] Jag TEJEDA HEADER GI PANEL BACTERIA Normal T [facility] Comment on above: Performed By: #### E RUR #### [facility] [address] [place] [address] Dr. Jag SANCHEZ ECOLI GI PANEL DIARRHEAGEN IC E.COLI / SHIGELLA Normal [facility] Comment on above: Performed By: #### E RUR #### [facility] [address] [place] [address] Dr. Jag SANCHEZ INFO SEE BELOW Normal [facility] Comment on above: Result Comment: EAEC - Enteroaggregative E. Coli EPEC- Enteropathogenic E. Coli ETEC- Enterotoxigenic E. Coli lt/st STEC- Shigella-like toxin-producing E. Coli stx1/stx2 EIEC- Shigella/Enteroinvasive E. Coli Performed By: #### E RUR #### [facility] [address] [place] [address] Dr. Jag SANCHEZ PARASITES GI PANEL PARASITES Normal [facility] Comment on above: Performed By: #### E RUR #### [facility] [address] [place] [address] Dr. Jag SANCHEZ VIRUS GI PANEL VIRUSES Normal [facility] Comment on above: Performed By: #### E RUR #### [facility] [address] [place] [address] Dr. Jag Waldrop Norovirus GI/GII Not detected Normal NOT DETECTED [facility] Comment on above: Performed By: #### E RUR #### [facility] [address] [place] [address] Dr. Jag Waldrop P. Shigelloides Not detected Normal NOT DETECTED [facility] Comment on above: Performed By: #### E RUR #### [facility] [address] [place] [address] Dr. Jag Waldrop Rotavirus A Not detected Normal NOT DETECTED [facility] Comment on above: Performed By: #### E RUR #### [facility] [address] [place] [address] Dr. Jag Waldrop Salmonella Not detected Normal NOT DETECTED [facility] Comment on above: Performed By: #### E RUR #### [facility] [address] [place] [address] Dr. Jag Waldrop Sapovirus Not detected Normal NOT DETECTED [facility] Comment on above: Performed By: #### E RUR #### [facility] [address] [place] [address] Dr. Jag Waldrop STEC Not detected Normal NOT DETECTED [facility] Comment on above: Performed By: #### E RUR #### [facility] [address] [place] [address] Dr. Jag Waldrop Vibrio Not detected Normal NOT DETECTED [facility] Comment on above: Performed By: #### E RUR #### [facility] [address] [place] [address] Dr. Jag Waldrop Vibrio Cholera Not detected Normal NOT DETECTED [facility] Comment on above: Performed By: #### E RUR #### [facility] [address] [place] [address] Dr. Jag Waldrop Y. Enterocolitica Not detected Normal NOT DETECTED [facility] Comment on above: Performed By: #### E RUR #### [facility] [address] [place] [address] Dr. Jag Waldrop OCC BLD IMMUNO SCREENon 11-14 OCCULT BLOOD Negative Normal NEGATIVE [facility] Comment on above: Performed By: #### L IPID, BMP #### [facility] [address] [address] [address] Jag Waldrop PROF CHEM 8 (BAS METB)on Anion gap [Moles/Vol] 15.5 mmol/L Normal [facility] Comment on above: Performed By: #### P OCGLUC #### [facility] [address] [address] [address] Jag Waldrop Calcium [Mass/Vol] 9.1 mg/dL Normal 8.5-10.1 [facility] Comment on above: Performed By: #### P OCGLUC #### [facility] [address] [address] [address] Jag Waldrop Chloride [Moles/Vol] 106 mmol/L Normal 98-107 [facility] Comment on above: Performed By: #### P OCGLUC #### [facility] [address] [address] [address] Jag Waldrop CO2 [Moles/Vol] 25.4 mmol/L Normal 21.0-32.0 [facility] Comment on above: Performed By: #### P OCGLUC #### [facility] [address] [address] [address] Jag Waldrop Creatinine [Mass/Vol] 1.18 mg/dL Critically high 0.55-1.02 [facility] Comment on above: Performed By: #### P OCGLUC #### [facility] [address] [address] [address] Jag Waldrop EGFR-AF [place] 59 mL/min/1.73m2 Critically low >=60 [facility] Comment on above: Performed By: #### P OCGLUC #### [facility] [address] [address] [address] Jag Waldrop EGFR-NON AF [place] 48 mL/min/1.73m2 Critically low >=60 [facility] Comment on above: Performed By: #### P OCGLUC #### [facility] [address] [address] [address] Jag Waldrop Glucose [Mass/Vol] 141 mg/dL Critically high 74-106 [facility] Comment on above: Performed By: #### P OCGLUC #### [facility] [address] [address] [address] Jag Waldrop Potassium [Moles/Vol] 3.9 mmol/L Normal 3.5-5.1 [facility] Comment on above: Performed By: #### P OCGLUC #### [facility] [address] [address] [address] Jag Waldrop Sodium [Moles/Vol] 143 mmol/L Normal 136-145 [facility] Comment on above: Performed By: #### P OCGLUC #### [facility] [address] [address] [address] Jag Waldrop Urea nitrogen [Mass/Vol] 22.0 mg/dL Critically high 7.0-18.0 [facility] Comment on above: Performed By: #### P OCGLUC #### [facility] [address] [address] [address] Jag Waldrop Urea nitrogen/Creatinine [Mass ratio] 18.6 mg/mg Normal [facility] Comment on above: Performed By: #### P OCGLUC #### [facility] [address] [place] [address] Dr. Jag Waldrop XR KUB 1 VIEWon [...] ALEX ALLEN Date: 2021-10-29 09:01 Normal [facility] CULTURE URINEon 10-28-2021 CULTURE URINE Culture Observations : LIGHT GROWTH OF MIXED GENITAL SANDEE. NO POTENTIAL PATHOGENS SEEN. Normal [facility] Comment on above: Performed By: #### E RUR #### [facility] [address] [address] [address] Jag Waldrop GLYCOHEMOGLOBIN A1Con 2021 ADA RECOMMENDATION SEE BELOW Normal [facility] Comment on above: Result Comment: ADA RECOMMENDED LIMIT 4.0 - 6.0 ADA THERAPEUTIC TARGET < 7.0 ACTION SUGGESTED > 7.0 Performed By: #### E RUR #### [facility] [address] [address] [address] Jag Waldrop Glucose [Mass/Vol] 157 mg/dL Normal [facility] Comment on above: Performed By: #### E RUR #### [facility] [address] [address] [address] Jag Waldrop HbA1c (Bld) [Mass fraction] 7.1 % Critically high 4.5-6.2 [facility] Comment on above: Performed By: #### E RUR #### [facility] [address] [place] [address] Dr. Jag Waldrop LIPID PROFILEon 10-28-2021 CHOL-HDL RATIO NORM SEE BELOW Normal [facility] Comment on above: Result Comment: 3.3 - 4.4 LOW RISK 4.4 - 7.1 AVERAGE RISK 7.1 - 11.0 MODERATE RISK >11.0 HIGH RISK Performed By: #### P OCGLUC #### [facility] [address] [place] [address] Dr. Jag Waldrop Cholesterol [Mass/Vol] 150 mg/dL Normal <=200 [facility] Comment on above: Performed By: #### P OCGLUC #### [facility] [address] [address] [address] Jag Waldrop Cholesterol in HDL [Mass/Vol] 39 mg/dL Critically low 40-60 [facility] Comment on above: Performed By: #### P OCGLUC #### [facility] [address] [address] [address] Jag Waldrop Cholesterol in LDL [Mass/Vol] 82.6 mg/dL Normal [facility] Comment on above: Performed By: #### P OCGLUC #### [facility] [address] [place] [address] Dr. Jag Waldrop Cholesterol.total/C holesterol in HDL [Mass ratio] 3.8 {ratio} Normal [facility] Comment on above: Performed By: #### P OCGLUC #### [facility] [address] [address] [address] Jag Waldrop HDL NORMAL > or = 60 mg/dl - LO W CARDIOVASCULAR RISK <40 mg/dl - HIGH CARDIOVASCULAR RISK Normal [facility] Comment on above: Performed By: #### P OCGLUC #### [facility] [address] [address] [address] Jag Waldrop LDL CALC NORMAL SEE BELOW Normal [facility] Comment on above: Result Comment: <100 mg/dl OPTIMAL 100 - 129 mg/dl NEAR OR ABOVE OPTIMAL 130 - 159 mg/dl BORDERLINE HIGH 160 - 189 mg/dl HIGH >190 mg/dl VERY HIGH Performed By: #### P OCGLUC #### [facility] [address] [address] [address] Jag Waldrop Triglyceride [Mass/Vol] 142 mg/dL Normal <=150 [facility] Comment on above: Performed By: #### P OCGLUC #### [facility] [address] [address] [address] Jag Waldrop VLDL CALC 28.4 mg/dL Normal [facility] Comment on above: Performed By: #### P OCGLUC #### [facility] [address] [address] [address] Jag Waldrop PROF CHEM 8 (BAS METB)on Anion gap [Moles/Vol] 16.0 mmol/L Normal [facility] Comment on above: Performed By: #### P OCGLUC #### [facility] [address] [address] [address] Jag Waldrop Calcium [Mass/Vol] 8.7 mg/dL Normal 8.5-10.[address] [facility] Comment on above: Performed By: #### P OCGLUC #### [facility] [address] [address] [address] Jag Waldrop Chloride [Moles/Vol] 108 mmol/L Critically high 98-107 [facility] Comment on above: Performed By: #### P OCGLUC #### [facility] [address] [address] [address] Jag Waldrop CO2 [Moles/Vol] 22.1 mmol/L Normal 21.0-32.0 [facility] Comment on above: Performed By: #### P OCGLUC #### [facility] [address] [address] [address] Jag Waldrop Creatinine [Mass/Vol] 1.72 mg/dL Critically high 0.55-1.02 [facility] Comment on above: Performed By: #### P OCGLUC #### [facility] [address] [address] [address] Jag Waldrop EGFR-AF [place] 38 mL/min/1.73m2 Critically low >=60 [facility] Comment on above: Performed By: #### P OCGLUC #### [facility] [address] [address] [address] Jag Waldrop EGFR-NON AF [place] 31 mL/min/1.73m2 Critically low >=60 [facility] Comment on above: Performed By: #### P OCGLUC #### [facility] [address] [address] [address] Jag Waldrop Glucose [Mass/Vol] 144 mg/dL Critically high 74-106 [facility] Comment on above: Performed By: #### P OCGLUC #### [facility] [address] [address] [address] Jag Waldrop Potassium [Moles/Vol] 5.1 mmol/L Normal 3.5-5.1 [facility] Comment on above: Performed By: #### P OCGLUC #### [facility] [address] [address] [address] Jag Waldrop Sodium [Moles/Vol] 141 mmol/L Normal 136-145 [facility] Comment on above: Performed By: #### P OCGLUC #### [facility] [address] [address] [address] Jag Waldrop Urea nitrogen [Mass/Vol] 41.0 mg/dL Critically high 7.0-18.0 [facility] Comment on above: Performed By: #### P OCGLUC #### [facility] [address] [place] [address] Dr. Jag Waldrop Urea nitrogen/Creatinine [Mass ratio] 23.8 mg/mg Normal [facility] Comment on above: Performed By: #### P OCGLUC #### [facility] [address] [place] [address] Dr. Jag Waldrop UA (CLEAN/CATCH) PELT SALTER/MICRO I F IND.on 10-28-2021 Bilirubin Ql (U) Negative Normal NEGATIVE [facility] Comment on above: Performed By: #### L IPID, BMP #### [facility] [address] [place] [address] Dr. Jag Waldrop Clarity (U) SL CLOUDY Abnormal CLEAR [facility] Comment on above: Performed By: #### L IPID, BMP #### [facility] [address] [place] [address] Dr. Jag Waldrop Color (U) LT. YELLOW Normal YELLOW [facility] Comment on above: Performed By: #### L IPID, BMP #### [facility] [address] [place] [address] Dr. Jag Waldrop Glucose Ql (U) Negative Normal NEGATIVE [facility] Comment on above: Performed By: #### L IPID, BMP #### [facility] [address] [place] [address] Dr. Jag Waldrop Hemoglobin Ql (U) TRACE-INTACT Abnormal NEGATIVE [facility] Comment on above: Performed By: #### L IPID, BMP #### [facility] [address] [place] [address] Dr. Jag Waldrop Ketones Ql (U) Negative Normal NEGATIVE [facility] Comment on above: Performed By: #### L IPID, BMP #### [facility] [address] [place] [address] Dr. Jag Waldrop LEUKOCYTES SMALL Abnormal NEGATIVE [facility] Comment on above: Performed By: #### L IPID, BMP #### [facility] [address] [place] [address] Dr. Jag Waldrop Nitrite Ql (U) Negative Normal NEGATIVE [facility] Comment on above: Performed By: #### L IPID, BMP #### [facility] [address] [place] [address] Dr. Jag Waldrop pH (U) 5.5 [pH] Normal 5-9 [facility] Comment on above: Performed By: #### L IPID, BMP #### [facility] [address] [place] [address] Dr. Jag Waldrop SPEC GRAVITY 1.020 Normal 1.005-<=1.025 [facility] Comment on above: Performed By: #### L IPID, BMP #### [facility] [address] [place] [address] Dr. Jag Waldrop UA PROTEIN Negative Normal NEGATIVE/ TRACE [facility] Comment on above: Performed By: #### L IPID, BMP #### [facility] [address] [place] [address] Dr. Jag Waldrop UR MICRO IND INDICATED Normal [facility] Comment on above: Performed By: #### L IPID, BMP #### [facility] [address] [place] [address] Dr. Jag Waldrop Urobilinogen Qn (U) 0.2 {Chris'U}/dL Normal 0.2 - 1. 0 [facility] Comment on above: Performed By: #### L IPID, BMP #### [facility] [address] [place] [address] Dr. Jag Waldrop URINE MICROSCOPIC ONLYon BACTERIA TRACE Abnormal NONE SEEN [facility] Comment on above: Performed By: #### L IPID, BMP #### [facility] [address] [place] [address] Dr. Jag Waldrop Bacteria identified Cx Nom (U) INDICATED Normal [facility] Comment on above: Performed By: #### L IPID, BMP #### [facility] [address] [place] [address] Dr. Jag Waldrop CAST NONE SEEN Normal NONE SEEN [facility] Comment on above: Performed By: #### L IPID, BMP #### [facility] [address] [place] [address] Dr. Jag Waldrop Crystals LM Nom (Urine sed) NONE SEEN Normal NONE SEEN [facility] Comment on above: Performed By: #### L IPID, BMP #### [facility] [address] [place] [address] Dr. Jag Waldrop Epithelial cells LM Ql (Urine sed) RARE Normal NONE SEEN /RARE [facility] Comment on above: Performed By: #### L IPID, BMP #### [facility] [address] [place] [address] Dr. Jag Waldrop MUCOUS TRACE Abnormal NONE SEEN [facility] Comment on above: Performed By: #### L IPID, BMP #### [facility] [address] [place] [address] Dr. Jag Waldrop RBC 0-2 Normal 0-2 [facility] Comment on above: Performed By: #### L IPID, BMP #### [facility] [address] [place] [address] Dr. Jag Waldrop WBC 2-5 Abnormal NONE SEEN [facility] [facility] Comment on above: Performed By: #### L IPID, BMP #### [facility] [address] [place] [address] Dr. Jag Waldrop BNPon 10-02-2021 Natriuretic peptide B (Bld) [Mass/Vol] 52.0 pg/mL Normal <=900.0 [facility] Comment on above: Performed By: #### L IPID, BMP #### [facility] [address] [place] [address] Dr. aJg Waldrop CBC AUTO DIFFon 10-02-2021 BASO # 0.1 103/ul Normal 0.0-0.1 [facility] Comment on above: Performed By: #### P OCGLUC #### [facility] [address] [place] [address] Dr. Jag Waldrop Basophils/100 WBC (Bld) 0.8 % Normal 0.2-2.0 [facility] Comment on above: Performed By: #### P OCGLUC #### [facility] [address] [place] [address] Dr. Jag Waldrop EO # 0.2 103/ul Normal 0.0-0.7 [facility] Comment on above: Performed By: #### P OCGLUC #### [facility] [address] [place] [address] Dr. Jag Waldrop Eosinophils/100 WBC (Bld) 3.0 % Normal 0.9-7.0 [facility] Comment on above: Performed By: #### P OCGLUC #### [facility] [address] [place] [address] Dr. Jag Waldrop Erythrocyte distribution width (RBC) [Ratio] 14.2 % Normal 11.0-15.0 [facility] Comment on above: Performed By: #### P OCGLUC #### [facility] [address] [place] [address] Dr. Jag Waldrop Hematocrit (Bld) [Volume fraction] 35.9 % Critically low 36.0-48.0 [facility] Comment on above: Performed By: #### P OCGLUC #### [facility] [address] [place] [address] Dr. Jag Waldrop Hemoglobin (Bld) [Mass/Vol] 11.0 g/dL Critically low 12.0-16.0 [facility] Comment on above: Performed By: #### P OCGLUC #### [facility] [address] [place] [address] Dr. Jag Waldrop IG # 0.03 10e3/ul Normal 0.00-0.03 [facility] Comment on above: Performed By: #### P OCGLUC #### [facility] [address] [place] [address] Dr. Jag Waldrop IG % 0.4 % Normal 0.0-0.5 [facility] Comment on above: Performed By: #### P OCGLUC #### [facility] [address] [place] [address] Dr. Jag Waldrop LYMPH # 2.8 103/ul Normal 1.2-3.8 [facility] Comment on above: Performed By: #### P OCGLUC #### [facility] [address] [place] [address] Dr. Jag Waldrop Lymphocytes/100 WBC (Bld) 37.9 % Normal 20.5-60.0 [facility] Comment on above: Performed By: #### P OCGLUC #### [facility] [address] [place] [address] Dr. Jag Waldrop MANUAL DIFF REQ NO Normal [facility] Comment on above: Performed By: #### P OCGLUC #### [facility] [address] [place] [address] Dr. Jag Waldrop MCH (RBC) [Entitic mass] 28.7 pg Normal 26.7-34.0 [facility] Comment on above: Performed By: #### P OCGLUC #### [facility] [address] [place] [address] Dr. Jag Waldrop MCHC (RBC) [Mass/Vol] 30.6 g/dL Normal 29.9-35.2 [facility] Comment on above: Performed By: #### P OCGLUC #### [facility] [address] [place] [address] Dr. Jag Waldrop MCV (RBC) [Entitic vol] 93.7 fL Normal 81.0-99.0 [facility] Comment on above: Performed By: #### P OCGLUC #### [facility] [address] [place] [address] Dr. Jag Waldrop MONO # 0.5 103/ul Normal 0.3-0.8 [facility] Comment on above: Performed By: #### P OCGLUC #### [facility] [address] [place] [address] Dr. Jag Waldrop Monocytes/100 WBC (Bld) 7.4 % Normal 1.7-12.0 [facility] Comment on above: Performed By: #### P OCGLUC #### [facility] [address] [place] [address] Dr. Jag Waldrop NEUT # 3.7 103/ul Normal 1.4-6.5 [facility] Comment on above: Performed By: #### P OCGLUC #### [facility] [address] [place] [address] Dr. Jag Waldrop Neutrophils/100 WBC (Bld) 50.5 % Normal 43.0-75.0 [facility] Comment on above: Performed By: #### P OCGLUC #### [facility] [address] [address] [address] Jag Waldrop Platelet mean volume (Bld) [Entitic vol] 10.2 fL Normal 9.5-13.5 [facility] Comment on above: Performed By: #### P OCGLUC #### [facility] [address] [address] [address] Jag Waldrop PLT 261 103/ul Normal 150-450 [facility] Comment on above: Performed By: #### P OCGLUC #### [facility] [address] [address] [address] Jag Waldrop RBC 3.83 106/ul Critically low 4.20-5.40 [facility] Comment on above: Performed By: #### P OCGLUC #### [facility] [address] [address] [address] Jag Waldrop WBC 7.3 103/ul Normal 4.0-11.0 [facility] Comment on above: Performed By: #### P OCGLUC #### [facility] [address] [place] [address] Dr. Jag Waldrop POINT OF CARE GLUCOSEon 09-14 Glucose [Mass/Vol] 156 mg/dL Critically high 74-106 [facility] Comment on above: Performed By: #### P OCGLUC #### [facility] [address] [address] [address] Jag Waldrop Glucose [Mass/Vol] 304 mg/dL Critically high 74-106 [facility] Comment on above: Performed By: #### P OCGLUC #### [facility] [address] [address] [address] Jag Waldrop Glucose [Mass/Vol] 77 mg/dL Normal 74-106 [facility] Comment on above: Performed By: #### E RUR #### [facility] [address] [address] [address] Jag Waldrop Glucose [Mass/Vol] 136 mg/dL Critically high 74-106 T [facility] Comment on above: Performed By: #### E RUR #### [facility] [address] [address] [address] Jag Waldrop Glucose [Mass/Vol] 73 mg/dL Critically low 74-106 [facility] Comment on above: Performed By: #### E RUR #### [facility] [address] [address] [address] Jag Waldrop PROF CHEM 8 (BAS METB)on Anion gap [Moles/Vol] 15.5 mmol/L Normal [facility] Comment on above: Performed By: #### P OCGLUC #### [facility] [address] [place] [address] Dr. Jag Waldrop Calcium [Mass/Vol] 8.3 mg/dL Critically low 8.5-10.1 [facility] Comment on above: Performed By: #### P OCGLUC #### [facility] [address] [place] [address] Dr. Jag Waldrop Chloride [Moles/Vol] 108 mmol/L Critically high 98-107 [facility] Comment on above: Performed By: #### P OCGLUC #### [facility] [address] [place] [address] Dr. Jag Waldrop CO2 [Moles/Vol] 18.9 mmol/L Critically low 21.0-32.0 [facility] Comment on above: Performed By: #### P OCGLUC #### [facility] [address] [place] [address] Dr. Jag Wadlrop Creatinine [Mass/Vol] 1.43 mg/dL Critically high 0.55-1.02 [facility] Comment on above: Performed By: #### P OCGLUC #### [facility] [address] [place] [address] Dr. Jag Waldrop EGFR-[place] 47 mL/min/1.73m2 Critically low >=60 [facility] Comment on above: Performed By: #### P OCGLUC #### [facility] [address] [place] [address] Dr. Jag Waldrop EGFR-NON AF [place] 39 mL/min/1.73m2 Critically low >=60 [facility] Comment on above: Performed By: #### P OCGLUC #### [facility] [address] [address] [address] Jag Waldrop Glucose [Mass/Vol] 269 mg/dL Critically high 74-106 T [facility] Comment on above: Performed By: #### P OCGLUC #### [facility] [address] [address] [address] Jag Waldrop Potassium [Moles/Vol] 5.4 mmol/L Critically high 3.5-5.1 [facility] Comment on above: Performed By: #### P OCGLUC #### [facility] [address] [place] [address] Dr. Jag Waldrop Sodium [Moles/Vol] 137 mmol/L Normal 136-[address] [facility] Comment on above: Performed By: #### P OCGLUC #### [facility] [address] [address] [address] Jag Waldrop Urea nitrogen [Mass/Vol] 40.0 mg/dL Critically high 7.0-18.0 [facility] Comment on above: Performed By: #### P OCGLUC #### [facility] [address] [place] [address] Dr. Jag Waldrop Urea nitrogen/Creatinine [Mass ratio] 28.0 mg/mg Normal [facility] Comment on above: Performed By: #### P OCGLUC #### [facility] [address] [address] [address] Jag Waldrop Anion gap [Moles/Vol] 14.0 mmol/L Normal [facility] Comment on above: Performed By: #### E RUR #### [facility] [address] [place] [address] Dr. Jag Waldrop Calcium [Mass/Vol] 8.9 mg/dL Normal 8.5-10.1 [facility] Comment on above: Performed By: #### E RUR #### [facility] [address] [address] [address] Jag Waldrop Chloride [Moles/Vol] 110 mmol/L Critically high 98-107 [facility] Comment on above: Performed By: #### E RUR #### [facility] [address] [address] [address] Jag Waldrop CO2 [Moles/Vol] 21.1 mmol/L Normal 21.0-32.0 [facility] Comment on above: Performed By: #### E RUR #### [facility] [address] [address] [address] Jag Waldrop Creatinine [Mass/Vol] 1.32 mg/dL Critically high 0.55-1.02 [facility] Comment on above: Performed By: #### E RUR #### [facility] [address] [place] [address] Dr. Jag Waldrop EGFR-[place] 52 mL/min/1.73m2 Critically low >=60 [facility] Comment on above: Performed By: #### E RUR #### [facility] [address] [place] [address] Dr. Jag Waldrop EGFR-NON AF [place] 43 mL/min/1.73m2 Critically low >=60 [facility] Comment on above: Performed By: #### E RUR #### [facility] [address] [place] [address] Dr. Jag Waldrop Glucose [Mass/Vol] 79 mg/dL Normal 74-106 [facility] Comment on above: Performed By: #### E RUR #### [facility] [address] [address] [address] Jag Waldrop Potassium [Moles/Vol] 6.1 mmol/L Critically high 3.5-5.1 [facility] Comment on above: Result Comment: Test Repeated. Critical Value Verified Performed By: #### E RUR #### [facility] [address] [place] [address] Dr. Jag Waldrop Sodium [Moles/Vol] 140 mmol/L Normal 136-145 [facility] Comment on above: Performed By: #### E RUR #### [facility] [address] [address] [address] Jag Waldrop Urea nitrogen [Mass/Vol] 45.0 mg/dL Critically high 7.0-18.0 [facility] Comment on above: Performed By: #### E RUR #### [facility] [address] [address] [address] Jag Waldrop Urea nitrogen/Creatinine [Mass ratio] 34.1 mg/mg Normal [facility] Comment on above: Performed By: #### E RUR #### [facility] [address] [address] [address] Jag Waldrop BASIC METABOLIC PANELon 08-14 Calcium [Mass/Vol] 8.9 mg/dL Normal 8.6-10.3 [facility] Comment on above: Order Comment: No: D o not add to previous draw Performed By: #### 5 6101, [id number] #### [facility] [address] [place] [address], [place] Chloride [Moles/Vol] 105 mmol/L Normal 98-107 [facility] Comment on above: Order Comment: No: D o not add to previous draw Performed By: #### 5 6101, [id number] #### [facility] [address] [place] [address], [place] CO2 [Moles/Vol] 26 mmol/L Normal 21-31 [facility] Comment on above: Order Comment: No: D o not add to previous draw Performed By: #### 5 6101, 76522 #### [facility] [address] [place] [address], [place] Creatinine [Mass/Vol] 0.99 mg/dL Normal 0.60-1.20 [facility] Comment on above: Order Comment: No: D o not add to previous draw Performed By: #### 5 6101, 99979 #### [facility] [address] [place] [address], [place] GFR/1.73 sq M predicted among blacks MDRD (S/P/Bld) [Vol rate/Area] mL/min/{1.73_m2} Normal >60 [facility] Comment on above: Order Comment: No: D o not add to previous draw Performed By: #### 5 610, 23895 #### [facility] [address] [place] [address], [place] GFR/1.73 sq M predicted among non-blacks MDRD (S/P/Bld) [Vol rate/Area] mL/min/{1.73_m2} Normal >60 [facility] Comment on above: Order Comment: No: D o not add to previous draw Performed By: #### 5 610, 58708 #### [facility] [address] [place] [address], [place] Glucose [Mass/Vol] 145 mg/dL High 70-100 [facility] Comment on above: Order Comment: No: D o not add to previous draw Performed By: #### 5 610, 39866 #### [facility] [address] [place] [address], [place] Potassium [Moles/Vol] 3.7 mmol/L Normal 3.5-5.1 [facility] Comment on above: Order Comment: No: D o not add to previous draw Performed By: #### 5 610, 03087 #### [facility] [address] [place] [address], [place] Sodium [Moles/Vol] 139 mmol/L Normal 136-145 [facility] Comment on above: Order Comment: No: D o not add to previous draw Performed By: #### 5 610, 54132 #### [facility] [address] [place] [address], [place] Urea nitrogen [Mass/Vol] 26 mg/dL High 7-25 [facility] Comment on above: Order Comment: No: D o not add to previous draw Performed By: #### 5 610, 83861 #### [facility] [address] [place] [address], [place] CBC W/DIFFon 08-25-2018 ABS BASOPHILS 0.0 10*3/uL Normal 0.0-0.2 [facility] Comment on above: Order Comment: No: D o not add to previous draw Performed By: #### 5 610, 50601 #### [facility] [address] [place] [address], [facility] ABS IMM GRANS 0.0 10*3/uL Normal 0.0-0.2 [facility] Comment on above: Order Comment: No: D o not add to previous draw Performed By: #### 5 610, 60374 #### [facility] [address] [facility] [place] [address], [facility] ABS NEUTROPHILS 2.3 10*3/uL Normal 1.6-7.6 [facility] Comment on above: Order Comment: No: D o not add to previous draw Performed By: #### 5 610, 75676 #### [facility] [address] [facility] [place] [address], [facility] Basophils/100 WBC (Bld) 0.3 % Normal 0.0-1.0 [facility] Comment on above: Order Comment: No: D o not add to previous draw Performed By: #### 5 610, 59370 #### [facility] [address] [facility] [place] [address], [facility] Eosinophils (Bld) [#/Vol] 0.0 10*3/uL Normal 0.0-0.5 [facility] Comment on above: Order Comment: No: D o not add to previous draw Performed By: #### 5 610, 72880 #### [facility] [address] [place] [address], [facility] Eosinophils/100 WBC (Bld) 0.0 % Normal 0.0-6.0 [facility] Comment on above: Order Comment: No: D o not add to previous draw Performed By: #### 5 610, 98942 #### [facility] [address] Erythrocyte distribution width (RBC) [Ratio] 13.3 % Normal 11.5-15.0 [facility] Comment on above: Order Comment: No: D o not add to previous draw Performed By: #### 5 6100, 58827 #### [facility] [address] [place] [address], [facility] Hematocrit (Bld) [Volume fraction] 37.7 % Normal 36.0-45.0 [facility] Comment on above: Order Comment: No: D o not add to previous draw Performed By: #### 5 6100, 61954 #### [facility] [address] [facility] [place] [address], [facility] Hemoglobin (Bld) [Mass/Vol] 12.1 g/dL Normal 12.0-15.0 [facility] Comment on above: Order Comment: No: D o not add to previous draw Performed By: #### 5 6100, 64820 #### [facility] [address] [facility] [place] [address], [facility] IMMATURE GRANS 0.2 % Normal 0.0-1.0 [facility] Comment on above: Order Comment: No: D o not add to previous draw Performed By: #### 5 6100, 69095 #### [facility] [address] [place] [address], [facility] Lymphocytes (Bld) [#/Vol] 3.0 10*3/uL Normal 1.2-4.0 [facility] Comment on above: Order Comment: No: D o not add to previous draw Performed By: #### 5 6100, 77673 #### [facility] [address] [place] [address], [facility] Lymphocytes/100 WBC (Bld) 52.0 % High 20.0-45.0 [facility] Comment on above: Order Comment: No: D o not add to previous draw Performed By: #### 5 6100, 33291 #### [facility] [address] [place] [id number], [facility] MCH (RBC) [Entitic mass] 28.7 pg Normal 27.0-33.0 [facility] Comment on above: Order Comment: No: D o not add to previous draw Performed By: #### 5 6100, 95668 #### [facility] [address] [place] [id number], [facility] MCHC (RBC) [Mass/Vol] 32.1 g/dL Normal 32.0-35.0 [facility] Comment on above: Order Comment: No: D o not add to previous draw Performed By: #### 5 6100, 07783 #### [facility] [address] [place] [id number], [facility] MCV (RBC) [Entitic vol] 89.3 fL Normal 82.0-98.0 [facility] Comment on above: Order Comment: No: D o not add to previous draw Performed By: #### 5 6100, 28509 #### [facility] [address] [place] [address], [facility] Monocytes (Bld) [#/Vol] 0.5 10*3/uL Normal 0.1-1.0 [facility] Comment on above: Order Comment: No: D o not add to previous draw Performed By: #### 5 6100, 65093 #### [facility] [address] [place] [address], [facility] MONOS 7.9 % Normal 5.0-12.0 [facility] Comment on above: Order Comment: No: D o not add to previous draw Performed By: #### 5 6100, 89696 #### [facility] [address] [place] [address], [facility] Neutrophils/100 WBC (Bld) 39.6 % Low 40.0-72.0 [facility] Comment on above: Order Comment: No: D o not add to previous draw Performed By: #### 5 6100, 83829 #### [facility] [address] [place] [address], [facility] Nucleated RBC/100 WBC (Bld) [Ratio] 0 % Normal 0-0 [facility] Comment on above: Order Comment: No: D o not add to previous draw Performed By: #### 5 6100, 09289 #### [facility] [address] [place] [address], [facility] PLAT CNT 236 10*3/uL Normal 150-400 [facility] Comment on above: Order Comment: No: D o not add to previous draw Performed By: #### 5 6100, 69292 #### [facility] [address] [place] [address], [facility] RBC (Bld) [#/Vol] 4.22 10*6/uL Normal 3.80-5.00 [facility] Comment on above: Order Comment: No: D o not add to previous draw Performed By: #### 5 6100, 62819 #### [facility] [address] [place] [address], [facility] WBC (Bld) [#/Vol] 5.85 10*3/uL Normal 4.00-10.60 [facility] Comment on above: Order Comment: No: D o not add to previous draw Performed By: #### 5 6100, 18879 #### [facility] [address] POC GLUCOSE LABon 08-25-2018 Glucose [Mass/Vol] 180 mg/dL High 70-100 [facility] Comment on above: Performed By: #### 5 6100, 44557 #### [facility] [address] [place] [address], [facility] Glucose [Mass/Vol] 129 mg/dL High 70-100 [facility] Comment on above: Performed By: #### 5 6100, 68172 #### [facility] [address] [place] [address], [facility] Glucose [Mass/Vol] 132 mg/dL High 70-100 [facility] Comment on above: Performed By: #### 5 0608 #### [facility] [address] [place] [address], [facility] UFH HEPARIN ASSAYon 08-26-19 19 UNFRACTIONATED HEPARIN <0.10 Critically low 0.30-0.70 [facility] Comment on above: Result Comment: Black roxaban and Apixaban will interfere with the anti Xa assay used to monitor UFH and LMWH. RESULTS CHECKED AND CALLED. ACCURATELY READ BACK BY JANENE ZAMARRIPA RN AT 0554 Performed By: #### 5 6101, 71028 #### [facility] [address] [place] [address], [facility] BASIC METABOLIC PANELon 08-14 Calcium [Mass/Vol] 8.5 mg/dL Low 8.6-10.3 [facility] Comment on above: Order Comment: No: D o not add to previous draw Performed By: #### 5 0608 #### [facility] [address] [facility] [place] [place] [address], [facility] Chloride [Moles/Vol] 104 mmol/L Normal 98-107 [facility] Comment on above: Order Comment: No: D o not add to previous draw Performed By: #### 5 0608 #### [facility] [address] [facility] [place] [address], [facility] CO2 [Moles/Vol] 27 mmol/L Normal 21-31 [facility] Comment on above: Order Comment: No: D o not add to previous draw Performed By: #### 5 0608 #### [facility] [address] [facility] [place] [address], [facility] Creatinine [Mass/Vol] 1.13 mg/dL Normal 0.60-1.20 [facility] Comment on above: Order Comment: No: D o not add to previous draw Performed By: #### 5 0608 #### [facility] [address] [place] [address], [place] GFR/1.73 sq M predicted among blacks MDRD (S/P/Bld) [Vol rate/Area] mL/min/{1.73_m2} Normal >60 [facility] Comment on above: Order Comment: No: D o not add to previous draw Performed By: #### 5 0608 #### [facility] [address] [place] [address], [place] GFR/1.73 sq M predicted among non-blacks MDRD (S/P/Bld) [Vol rate/Area] 52 ml/min/1.73sq m Abnormal >60 [facility] [facility] Comment on above: Order Comment: No: D o not add to previous draw Performed By: #### 5 [id number] #### [facility] [address] [place] [address], [place] Glucose [Mass/Vol] 131 mg/dL High 70-100 [facility] Comment on above: Order Comment: No: D o not add to previous draw Performed By: #### 5 [id number] #### [facility] [address] [place] [address], [place] Potassium [Moles/Vol] 3.9 mmol/L Normal 3.5-5.1 [facility] Comment on above: Order Comment: No: D o not add to previous draw Performed By: #### 5 [id number] #### [facility] [address] [place] [address], [place] Sodium [Moles/Vol] 141 mmol/L Normal 136-145 [facility] Comment on above: Order Comment: No: D o not add to previous draw Performed By: #### 5 [id number] #### [facility] [address] [place] [address], [place] Urea nitrogen [Mass/Vol] 28 mg/dL High 7-25 [facility] Comment on above: Order Comment: No: D o not add to previous draw Performed By: #### 5 [id number] #### [facility] [address] CBC COMPLETE BLOOD COUNTon 08-24-2018 Erythrocyte distribution width (RBC) [Ratio] 13.5 % Normal 11.5-15.0 [facility] Comment on above: Order Comment: No: D o not add to previous draw Performed By: #### 5 [id number] #### [facility] [address] [place] [address], [facility] Hematocrit (Bld) [Volume fraction] 37.1 % Normal 36.0-45.0 [facility] Comment on above: Order Comment: No: D o not add to previous draw Performed By: #### 5 [id number] #### [facility] [address] [place] [address], [facility] Hemoglobin (Bld) [Mass/Vol] 12.2 g/dL Normal 12.0-15.0 [facility] Comment on above: Order Comment: No: D o not add to previous draw Performed By: #### 5 [id number] #### [facility] [address] [place] [address], [facility] MCH (RBC) [Entitic mass] 28.8 pg Normal 27.0-33.0 [facility] Comment on above: Order Comment: No: D o not add to previous draw Performed By: #### 5 [id number] #### [facility] [address] [place] [address], [facility] MCHC (RBC) [Mass/Vol] 32.9 g/dL Normal 32.0-35.0 [facility] Comment on above: Order Comment: No: D o not add to previous draw Performed By: #### 5 [id number] #### [facility] [address] [place] [id number], [facility] MCV (RBC) [Entitic vol] 87.7 fL Normal 82.0-98.0 [facility] Comment on above: Order Comment: No: D o not add to previous draw Performed By: #### 5 [id number] #### [facility] [address] [place] [address], [facility] Nucleated RBC/100 WBC (Bld) [Ratio] 0 % Normal 0-0 [facility] Comment on above: Order Comment: No: D o not add to previous draw Performed By: #### 5 [id number] #### [facility] [address] [place] [address], [facility] PLAT CNT 251 10*3/uL Normal 150-400 [facility] Comment on above: Order Comment: No: D o not add to previous draw Performed By: #### 5 [id number] #### [facility] [address] [place] [address], [facility] RBC (Bld) [#/Vol] 4.23 10*6/uL Normal 3.80-5.00 [facility] Comment on above: Order Comment: No: D o not add to previous draw Performed By: #### 5 [id number] #### [facility] [address] [place] [address], [facility] WBC (Bld) [#/Vol] 8.42 10*3/uL Normal 4.00-10.60 [facility] Comment on above: Order Comment: No: D o not add to previous draw Performed By: #### 5 [id number] #### [facility] [address] Cardiovascular Lab Reporton 08-24-2018 Cardiovascular Lab Report [facility] Patient Name: Petr [facility] A MR #: [id number] Department of Physician: Marshall Torres M.D. Division of Service Date: 08/23/2018 Cardiology Birthdate: 1970 Adult Cardiovascular Room #: 3AB [id number] [facility] [place] [address] Cardiovascular Laboratory Report FINAL IMPRESSION: 1. Mild [...] 5. Follow up with me in the [facility] post discharge. 6. Further recommendations deferred to [...] the left radial artery was obtained. A 6-Bulgarian Glidesheath was inserted without difficulty. Bilateral selective [...] 30% stenosis adjacent to a prominent septal hand frame surgical elastic knitter. There are luminal irregularities throughout the remainder [...] Godoy M.D. Date Trans: 08/24/2018 06:37 A/yadira [id number] cc: Geovanni Myers D.O. [address] [facility] [address] Normal [facility] HIP RIGHT 1 OR 2 VWS WITH PE LVISon 08-24-2018 HIP RIGHT 1 OR 2 VWS WITH PELVIS [facility] Department of Radiology [address] [place] [id number] ===== Patient Name: SHERLY HUMPHREYS : 1970 Sex: F Age: Race: White Pt. Location: [id number] Patient Status: D Ordered Date: 08/24/2018 12:30:00 [...] findings. Electronically signed by:Kristy Jones. Transcribed by: [email or web address], User Resident: DL GOLDBERG Electronically Signed by: KRISTY JONES @ 08/25/2018 08:05 PM I personally read this/these film(s) with this resident Normal [facility] Comment on above: Order Comment: No: D o not add to previous draw POC GLUCOSE LABon 08-24-2018 Glucose [Mass/Vol] 125 mg/dL High 70-100 [facility] Comment on above: Performed By: #### 5 [id number] #### [facility] [address] [place] [address], [place] Glucose [Mass/Vol] 150 mg/dL High 70-100 [facility] Comment on above: Performed By: #### 5 0608 #### [facility] [address] [place] [address], [place] Glucose [Mass/Vol] 119 mg/dL High 70-100 [facility] Comment on above: Performed By: #### 5 [id number] #### [facility] [address] UFH HEPARIN ASSAYon 08-25-19 19 UNFRACTIONATED HEPARIN <0.10 Critically low 0.30-0.70 [facility] Comment on above: Result Comment: Betty roxaban and Apixaban will interfere with the anti Xa assay used to monitor UFH and LMWH. RESULTS CHECKED AND CALLED. ACCURATELY READ BACK BY JANENE ZAMARRIPA RN AT 0732 Performed By: #### 5 0608 #### [facility] [address] APTTon 08-23-2018 aPTT Coag (Bld) [Time] 38.8 s High 25.0-35.0 [facility] Comment on above: Order Comment: No: D [...] THIS PURPOSE. Performed By: #### 5 6101, [id number] #### [facility] [address] [facility] CBC COMPLETE BLOOD COUNTon 0 08-23-2018 Erythrocyte distribution width (RBC) [Ratio] 13.3 % Normal 11.5-15.0 [facility] Comment on above: Order Comment: No: D o not add to previous draw Performed By: #### 5 0608 #### [facility] [address] [facility] [address] Hematocrit (Bld) [Volume fraction] 41.4 % Normal 36.0-45.0 [facility] Comment on above: Order Comment: No: D o not add to previous draw Performed By: #### 5 0608 #### [facility] [address] [facility] [address] Hemoglobin (Bld) [Mass/Vol] 13.8 g/dL Normal 12.0-15.0 [facility] Comment on above: Order Comment: No: D o not add to previous draw Performed By: #### 5 0608 #### [facility] [address] [place] [address], [facility] MCH (RBC) [Entitic mass] 29.0 pg Normal 27.0-33.0 [facility] Comment on above: Order Comment: No: D o not add to previous draw Performed By: #### 5 0608 #### [facility] [address] MCHC (RBC) [Mass/Vol] 33.3 g/dL Normal 32.0-35.0 [facility] Comment on above: Order Comment: No: D o not add to previous draw Performed By: #### 5 0608 #### [facility] [address] [place] [address], [facility] MCV (RBC) [Entitic vol] 87.0 fL Normal 82.0-98.0 [facility] Comment on above: Order Comment: No: D o not add to previous draw Performed By: #### 5 0608 #### [facility] [address] Nucleated RBC/100 WBC (Bld) [Ratio] 0 % Normal 0-0 [facility] Comment on above: Order Comment: No: D o not add to previous draw Performed By: #### 5 0608 #### [facility] [address] [place] [address], [facility] PLAT CNT 293 10*3/uL Normal 150-400 [facility] Comment on above: Order Comment: No: D o not add to previous draw Performed By: #### 5 0608 #### [facility] [address] [place] [address], [facility] RBC (Bld) [#/Vol] 4.76 10*6/uL Normal 3.80-5.00 [facility] Comment on above: Order Comment: No: D o not add to previous draw Performed By: #### 5 0608 #### [facility] [address] WBC (Bld) [#/Vol] 10.48 10*3/uL Normal 4.00-10.60 [facility] Comment on above: Order Comment: No: D o not add to previous draw Performed By: #### 5 0608 #### [facility] [address] History and Physicalon 08-23 History and Physical MR#: [id number] [facility] Pt. Name: Sherly Humphreys Admitted: 08/23/2018 Date of : 1970 Attending Physician: Nini Valente MD Room #: [id number] Discharge Date: HISTORY AND PHYSICAL CHIEF COMPLAINT: [...] she went to the emergency department in [facility]. Initial evaluation included troponin and EKG, which were negative. The patient was started on nitroglycerin patch. She experienced some relief after starting the nitroglycerin patch. Her pain went down from 8 to 6/10. Given her significant cardiac history, the patient was transferred to [facility] for further evaluation. The patient reports [...] with no ST-T wave changes. Troponin from [facility] was 0.01. Pending troponin in our [...] Valente MD Date Trans: 08/23/2018 06:27 Amanda/yadira [id number] Normal [facility] POC GLUCOSE LABon 08-23-2018 Glucose [Mass/Vol] 101 mg/dL High 70-100 [facility] Comment on above: Performed By: #### 5 0608 #### [facility] [address] Glucose [Mass/Vol] 96 mg/dL Normal 70-100 [facility] Comment on above: Performed By: #### 5 0608 #### [facility] [address] [place] [address], [facility] Glucose [Mass/Vol] 134 mg/dL High 70-100 [facility] Comment on above: Performed By: #### 8 5499 #### [facility] [address] Glucose [Mass/Vol] 164 mg/dL High 70-100 [facility] Comment on above: Performed By: #### 8 5499 #### [facility] [address] PROTHROMBIN TIMEon 9 INR Coag (PPP) [Relative time] 1.06 {INR} Normal 0.91-1.16 [facility] Comment on above: Order Comment: No: D [...] CHEST 1995;[id number]. Performed By: #### 5 6101, [id number] #### [facility] [address] PT Coag (PPP) [Time] 13.8 s Normal 12.3-14.8 [facility] Comment on above: Order Comment: No: D o not add to previous draw Result Comment: ALL RESULTS MUST BE INTERPRETED WITH RESPECT TO BLOOD DRAWING ARTIFACT OR DILUTION ERROR OF ANTICOAGULANT AT THE TIME OF SAMPLING. Performed By: #### 5 6101, [id number] #### [facility] [address] SERUM TESTon 08-23 TEST Negative Normal [facility] Comment on above: Order Comment: Yes: Add to Previous draw if able Performed By: #### 4 6473 #### [facility] [address] [facility] [place] [address], [facility] TROPONIN-Ion 08-23-2018 Troponin I.cardiac [Mass/Vol] 0.01 ng/mL Normal 0.00-0.04 [facility] Comment on above: Order Comment: No: D o not add to previous draw Result Comment: REFE RENCE RANGES: 0.00 - 0.04 ng/ml NORMAL 0.05 - 0.50 ng/ml INDETERMINATE > 0.50 ng/ml CONSISTENT WITH AN M.I. Performed By: #### 3 5200 #### [address] UFH HEPARIN ASSAYon 08-24-19 19 UNFRACTIONATED HEPARIN 0.42 IU/mL Normal 0.30-0.70 [facility] Comment on above: Order Comment: per beatriz schneider Result Comment: Black roxaban and Apixaban will interfere with the anti Xa assay used to monitor UFH and LMWH. Performed By: #### 3 0477 #### [address] UNFRACTIONATED HEPARIN 0.29 IU/mL Low 0.30-0.70 [facility] Comment on above: Result Comment: Black roxaban and Apixaban will interfere with the anti Xa assay used to monitor UFH and LMWH. Performed By: #### 3 0477 #### [address] US GALLBLADDERon 08-23-2018 US GALLBLADDER [facility] Department of Radiology [address] [place] [id number] ===== Patient Name: SHERLY HUMPHREYS : 1970 Sex: F Age: Race: White Pt. Location: [id number] Patient Status: I Ordered Date: 08/23/2018 11:30:00 [...] gallbladder. Electronically signed by:Nathan Mattson. Transcribed by: [email or web address], User Resident: Electronically Signed by: NATHAN MATTSON @ 08/23/2018 03:33 PM Normal [facility] Comment on above: Order Comment: No: D o not add to previous draw Vital Signs Date Time Vital Sign Value Performing Clinician Facility 08-14-2022 10:15-0400 Body height 162.56 cm Ivan Sams Other [facility] Other 08-14-2022 10:15-0400 Body mass index (BMI) [Ratio] 51.63 kg/m2 Ivan Sams Other [facility] Other 08-14-2022 10:15-0400 Body weight 136.44 kg Ivan Sams Other [facility] Other 08-14-2022 10:15-0400 Diastolic blood pressure 80 mm[Hg] Ivan Sams Other [facility] Other 08-14-2022 10:15-0400 SaO2% (BldA) [Mass fraction] 99 % Ivan Sams Other [facility] Other 08-14-2022 10:15-0400 Systolic blood pressure 140 mm[Hg] Ivan Sams Other [facility] Other 07-03-2022 12:30-0400 Body height 162.56 cm Ivan Sams Other [facility] Other 07-03-2022 12:30-0400 Body mass index (BMI) [Ratio] 51.39 kg/m2 Ivan Sams Other [facility] Other 07-03-2022 12:30-0400 Body weight 135.81 kg Ivan Sams Other [facility] Other 07-03-2022 12:30-0400 Diastolic blood pressure 84 mm[Hg] Ivan Sams Other [facility] Other 07-03-2022 12:30-0400 SaO2% (BldA) [Mass fraction] 99 % Ivan Sams Other [facility] Other 07-03-2022 12:30-0400 Systolic blood pressure 142 mm[Hg] Ivan Sams Other [facility] Other 06-24-2022 15:59-0500 Body height 162.56 cm Janene Lew Work Phone: [facility] 06-24-2022 15:59-0500 Body temperature 98.2 [degF] Janene Aichholz Work Phone: [facility] 06-24-2022 15:59-0500 Body weight 134.4 kg Janene Aichholz Work Phone: [facility] 06-24-2022 15:59-0500 Diastolic blood pressure 95 mm[Hg] Janene Aichholz Work Phone: [facility] 06-24-2022 15:59-0500 Heart rate 94 /min Janene Aichholz Work Phone: [facility] 06-24-2022 15:59-0500 Respiratory rate 20 /min Janene Aichholz Work Phone: [facility] 06-24-2022 15:59-0500 SaO2% (BldA) [Mass fraction] 96 % Janene Karenholz Work Phone: [facility] 06-24-2022 15:59-0500 Systolic blood pressure 187 mm[Hg] Janene Karenholz Work Phone: [facility] 05-12-2022 12:00-0500 Body height 162.56 cm Christian Mckenzie Other [facility] Other 05-12-2022 12:00-0500 Body mass index (BMI) [Ratio] 51.94 kg/m2 Christian Mckenzie Other [facility] Other 05-12-2022 12:00-0500 Body weight 137.26 kg Christian Mckenzie Other [facility] Other 04-25-2022 12:20-0500 Body height 162.56 cm Halle Mac Other [facility] Other 04-25-2022 12:20-0500 Body mass index (BMI) [Ratio] 51.94 kg/m2 Aziz Bakhous Other [facility] Other 04-25-2022 12:20-0500 Body temperature 97.5 [degF] Halle Webers Other [facility] Other 04-25-2022 12:20-0500 Body weight 137.26 kg Halle Webers Other [facility] Other 04-25-2022 12:20-0500 Diastolic blood pressure 80 mm[Hg] Halle Webers Other [facility] Other 04-25-2022 12:20-0500 Respiratory rate 18 /min Halle Webers Other [facility] Other 04-25-2022 12:20-0500 SaO2% (BldA) [Mass fraction] 97 % Halle Mac Other [facility] Other 04-25-2022 12:20-0500 Systolic blood pressure 140 mm[Hg] Halle Webers Other [facility] Other 01-25-2022 16:15-0400 Body height 162.56 cm Emma Bolivar Other [facility] Other 01-25-2022 16:15-0400 Body mass index (BMI) [Ratio] 52.78 kg/m2 Emma Bolivar Other [facility] Other 01-25-2022 16:15-0400 Body temperature 97.1 [degF] Emma Bolivar Other [facility] Other 01-25-2022 16:15-0400 Body weight 139.48 kg Emma Bolivar Other [facility] Other 01-25-2022 16:15-0400 Diastolic blood pressure 70 mm[Hg] Emma Bolivar Other [facility] Other 01-25-2022 16:15-0400 SaO2% (BldA) [Mass fraction] 98 % Emma Bolivar Other [facility] Other 01-25-2022 16:15-0400 Systolic blood pressure 142 mm[Hg] Emma Bolivar Other [facility] Other 12-06-2021 12:20-0400 Body height 162.56 cm Christian Mckenzie Other [facility] Other 12-06-2021 12:20-0400 Body mass index (BMI) [Ratio] 46.34 kg/m2 Christian Mckenzie Other [facility] Other 12-06-2021 12:20-0400 Body weight 122.47 kg Christian Mckenzie Other [facility] Other 11-10-2021 16:20-0400 Body height 162.56 cm Christian Mckenzie Other [facility] Other 11-10-2021 16:20-0400 Body mass index (BMI) [Ratio] 46.34 kg/m2 Christian Mckenzie Other [facility] Other 11-10-2021 16:20-0400 Body weight 122.47 kg Christian Mckenzie Other [facility] Other 09-29-2021 14:00-0400 Body height 162.56 cm Christian Mckenzie Other [facility] Other 09-29-2021 14:00-0400 Body mass index (BMI) [Ratio] 46 kg/m2 Christian Mckenzie Other [facility] Other 09-29-2021 14:00-0400 Body weight 121.56 kg Christian Mckenzie Other [facility] Other 08-30-2021 15:40-0400 Body height 162.56 cm Christian Mckenzie Other [facility] Other 08-30-2021 15:40-0400 Body mass index (BMI) [Ratio] 46 kg/m2 Christian Mckenzie Other [facility] Other 08-30-2021 15:40-0400 Body weight 121.56 kg Christian Mckenzie Other [facility] Other Encounters Encounter Date Encounter Type Care Provider Facility Start: 05-03-2023 End: 05-03-2023 ambulatory JANENE LEW Not Available Start: 03-14-2023 End: 03-14-2023 ambulatory TK [facility] Start: 02-19-2023 End: 02-20-2023 ambulatory Elza Conway MD Facility:[facility] Start: 01-25-2023 ambulatory Janene Lew Facilit y:[facility] Start: 01-01-2023 End: 01-02-2023 ambulatory Elza Conway MD Facility:[facility] Start: 11-30-2022 End: 11-30-2022 ambulatory JONATHAN MULLINSABRAZO [facility] Start: 11-29-2022 End: 11-29-2022 ambulatory Halle Mac Other [facility] Other Start: 11-29-2022 Telephone encounter Halle Mac [facility] Start: 09-29-2022 End: 09-[facility] Start: 09-18-2022 End: 09-18-2022 ambulatory Ivan Sams Other [facility] Other Start: 09-18-2022 Telephone encounter Ivan Sams [facility] Start: 09-07-2022 End: 09-07-2022 ambulatory [employer] MANAGER JANENE KARENHOLZ Facility:[facility] Start: 08-14-2022 End: 08-14-2022 ambulatory Ivanying Sams Other [facility] Other Start: 08-14-2022 Office outpatient vi sit 25 minutes Ivan Latrell [facility] Start: 07-03-2022 End: 07-03-2022 ambulatory Ivan Sams Other [facility] Other Start: 07-03-2022 Office consultation new/estab patient 60 min Ivan Latrell [facility] Start: 06-24-2022 End: 06-24-2022 Emergency department patient visit Merissa Hernandez Facility:[facility] Start: 06-24-2022 End: 06-24-2022 Emergency department patient visit Janene Jonesangiegabo Work Phone: [facility] Work Phone: Start: 06-08-2022 End: 06-09-2022 ambulatory REGIONAL HR MANAGER JANENE AICTimmyHOLZ Facility:[facility] Start: 05-29-2022 End: 05-30-2022 ambulatory REGIONAL HR MANAGER JANENE AICHHOLZ Facility:[facility] Start: 05-13-2022 ambulatory REGIONAL HR MANAGER JANENE AICHHOLZ Facil ity:[facility] Start: 05-12-2022 End: 05-12-2022 ambulatory Christian Mckenzie Other [facility] Other Start: 05-12-2022 Office outpatient vi sit 15 minutes Christian Mckenzie [facility] Start: 04-25-2022 End: 04-25-2022 ambulatory Donaldaurelia Bubba Other [facility] Other Start: 04-25-2022 Office outpatient ne w 30 minutes Donaldaurelia Tias [facility] [place] Start: 03-29-2022 End: 03-30-2022 ambulatory REGIONAL HR MANAGER JANENE WILFREDOZ Facility:[facility] Start: 03-23-2022 End: 03-24-2022 ambulatory REGIONAL HR MANAGER JANENE AICTimmyHOLZ Facility:[facility] Start: 02-19-2022 End: 02-19-2022 ambulatory REGIONAL HR MANAGER JANENE KARENHOLZ Facility:[facility] Start: 02-16-2022 End: 02-16-[address] MYRIAM PERRIN . Facility:[facility] Start: 02-15-2022 ambulatory REGIONAL HR MANAGER JANENE MATTY Facil ity:[facility] Start: 01-25-2022 End: 01-25-2022 Patient encounter procedure Janene Lew Work Phone: [facility] Start: 01-25-2022 End: 01-25-2022 ambulatory Janene Lew Work Phone: [facility] Work Phone: Start: 01-25-2022 Office outpatient vi sit 25 minutes Emma Bolivar [facility] Start: 01-25-2022 End: 01-26-2022 ambulatory REGIONAL HR MANAGER JANENE KARENHOLZ Facility:[facility] Start: 01-23-2022 End: 01-24-2022 ambulatory REGIONAL HR MANAGER JANENE AICTimmyHOLZ Facility:[facility] Start: 01-12-2022 End: 01-13-2022 ambulatory REGIONAL HR MANAGER JANENE KARENHOLZ Facility:[facility] Start: 12-21-2021 End: 12-22-2021 ambulatory REGIONAL HR MANAGER JANENE AICTimmyHOLZ Facility:[facility] Start: 12-06-2021 End: 12-06-2021 ambulatory Christian Mckenzie Other [facility] Other Start: 12-06-2021 Office outpatient vi sit 15 minutes Christian Mckenzie [facility] Start: 11-30-2021 End: 11-30-2021 ambulatory REGIONAL HR MANAGER JANENE LEW Facility:[facility] Start: 11-28-2021 End: 11-29-2021 ambulatory REGIONAL HR MANAGER JANENE LEW Facility:[facility] Start: 11-14-2021 End: 11-14-2021 ambulatory Janene Lew Work Phone: [facility] Work Phone: Start: 11-14-2021 End: 11-14-2021 Discharged Recurring Janene Lew Work Phone: [facility] Start: 11-10-2021 End: 11-10-2021 ambulatory Christian Mckenzie Other [facility] Other Start: 11-10-2021 Postop follow up vis it related to original px Christian Mckenzie [facility] Neurosurgery Start: 10-28-2021 End: 10-29-2021 ambulatory REGIONAL HR MANAGER JANENE LEW Facility:[facility] Start: 10-02-2021 End: 10-02-2021 ambulatory REGIONAL HR MANAGER JANENE LEW Facility:[facility] Start: 09-29-2021 End: 09-29-2021 ambulatory Christian Mckenzie Other [facility] Other Start: 09-29-2021 Postop follow up vis it related to original px Christian Mckenzie [facility] Neurosurgery Start: 08-30-2021 End: 08-30-2021 ambulatory Christian Mckenzie Other [facility] Other Start: 08-30-2021 Postop follow up vis it related to original px Christian Mckenzie [facility] Neurosurgery Start: 08-12-2021 Admission to same da y surgery center Christian Mckenzie [facility] Start: 08-12-2021 End: 08-12-2021 ambulatory Christian Mckenzie Other [facility] Other Start: 08-23-2018 End: 08-25-2018 Evaluation and management of inpatient Peng Valles Facility:[facility] Procedures Date Procedure Procedure Detail Performing Clinician Start: 08-23-2018 FLUOROSCOPY OF MULTI PLE CORONARY ARTERIES USING OTH CONTRAST EHAB A [place] History of percutane ous transluminal coronary angioplasty History of PTCA Janene Lew Work Phone: Plan of Treatment Date Care Activity Detail Author Patient Education Radiculopathy (DC) [facility] Work Phone: Patient referral [facility] Work Phone: Immunizations Immunization Date Immunization Notes Care Provider Fa cility 05-17-2021 COVID-19 mRNA, Comirnaty (Pfizer) Janene Lew Work Phone: [facility] 09-06-2020 COVID-19 mRNA, Comirnaty (Pfizer) Janene Lew Work Phone: [facility] 08-16-2020 COVID-19 mRNA, Comirnaty (Pfizer) Janene Lew Work Phone: [facility] 01-31-2019 influenza, injectabl e, quadrivalent, contains preservative Christian Mckenzie Other [facility] Other 03-15-2018 influenza, injectabl e, quadrivalent, contains preservative Christian Mckenzie Other [facility] [facility] [employer] Other Payers Date Payer Category Payer Medicaid [id number] 2022 Self-pay [id number] 2022 Medicaid [id number] 2. [id number] 2022 Private Health Insurance [id number] 2.16.840.1.373119.19 2022 Private Health Insurance 2022 Unknown 2010 Self-pay [id number] 1970 Unknown [id number] 2.16.8 40.1.588135.3.579.2.647 1970 Unknown [id number] 2.16.84 0.1.672959.3.579.2.593 1970 Unknown [id number] 2.16.84 0.1.571932.3.579.2.593 1970 Unknown [id number] 2.16.84 0.1.419587.3.579.2.593 1970 Unknown [id number] 2.16.84 0.1.867497.3.579.2.593 1970 Unknown [id number] 2.16.84 0.1.079068.3.579.2.593 1970 Unknown [id number] 2.16.84 0.1.392458.3.579.2.593 1970 Unknown [id number] 2.16.84 0.1.309886.3.579.2.593 1970 Unknown [id number] 2.16.84 0.1.348323.3.579.2.593 1970 Unknown [id number] 2.16.84 0.1.583771.3.579.2.593 1970 Unknown [id number] 2.16.84 0.1.505239.3.579.2.593 1970 Unknown [id number] 2.16.84 0.1.495364.3.579.2.593 1970 Unknown [id number] 2.16.84 0.1.058735.3.579.2.593 1970 Unknown [id number] 2.16.84 0.1.927632.3.579.2.593 1970 Unknown [id number] 2.16.84 0.1.399587.3.579.2.593 1970 Unknown [id number] 2.16.84 0.1.473322.3.579.2.593 1970 Unknown [id number] 2.16.84 0.1.777520.3.579.2.593 1970 Unknown [id number] 2.16.84 0.1.985868.3.579.2.593 1970 Unknown [id number] 2.16. 840.1.342921.3.579.2.196 1970 Unknown [id number] 2.16. 840.1.541298.3.579.2.196 1970 Unknown [id number] 2.16.84 0.1.428798.3.579.2.1259 1959 Private Health Insurance [id number] 2.16.840.1.025445.19 1959 Unknown [id number] 2.1 6.840.1.193128.19 Unknown [id number] 2.16.8 40.1.615920.3.579.2.531 Unknown [id number] 2.16.8 40.1.067014.3.579.2.531 Social History Date Type Detail Facility Unknown if ever smoked [facility] Other Sex Assigned At Sex Assigned At Bir th [facility] Other Start: 08-12-2021 End: 06-24-2022 Tobacco smoking status NHIS Never smoked tobacco (finding) [facility] Start: 1970 Sex Assigned At Female F [facility] Clinical Notes 08-30-2021 to 03-14-2023 Note Date & Type Note Facility 03-14-2023 Note [facility] Cardiology Clinic Note Chief Complaint: Patient [...] Denies chest pain and palpitations. Went to [facility] recently and had to sit down in [...] right ventricular systo (more content not included)... [facility] 11-30-2022 Note Cardiology Clinic No te Subjective [...] diastolic heart failure (CMS/HCC) Coronary arteriosclerosis in [place] artery Coronary atherosclerosis Dehydration Bipolar disorder (CMS/HCC) [...] 19, serum creati (more content not included)... [facility] 09-29-2022 Note Cardiology Clinic No te Subjective [...] diastolic heart failure (CMS/HCC) Coronary arteriosclerosis in [place] artery Coronary atherosclerosis Dehydration Bipolar disorder (CMS/HCC) [...] Otherwise normal coronary (more content not included)... [facility] 09-29-2022 Note Review of Systems Cardiovascular: Positive for leg swelling. Respiratory: Positive for shortness of breath. [facility] 08-14-2022 Evaluation note Encounter Date Diagnosis Assessment [...] - G89.29) Proceed with current treatment plan [facility] Other 03-20-2023 Evaluation note* Encounter Date Diagnosis [...] negative findings were considered in medical decision-making. [facility] Other 03-11-2023 Hospital Discharge instructions Additional Instructions [...] bowel control high fever [facility] Work Phone: [phone] 958-459801-27-2023 Evaluation note* Encounter Date Diagnosis Assessment Notes [...] [facility] 01-10-2023 Evaluation note* Encounter Date Diagnosis [...] obesity (ICD-10 - E66.01) Encouraged weight loss [facility] Other 10-12-2022 Evaluation note* Encounter Date Diagnosis [...] strap. A prescription was sent to the [facility] for new supplies throughout the year, as [...] sleepiness, or poor response to treatment. . [facility] Other 08-23-2022 Evaluation note* Encounter Date Diagnosis [...] of thoracolumbar intervertebral disc (ICD-10 - M51.25) [facility] Other 07-28-2022 Evaluation note* Encounter Date Diagnosis [...] a med check and PT follow up [facility] Other 06-16-2022 Evaluation note* Encounter Date Diagnosis [...] labor Sep, Thoracic myelopathy (ICD-10 - M47.14) [facility] Other 05-17-2022 Evaluation note* Encounter Date Diagnosis [...] Overall she is making a good recovery [facility] Other evaluation noteNo InformationNort [facility] Other evaluation noteNo assessment information available [facility] Work Phone: Hiswrow general Narrative - Reported* Type Description Date [...] History Tonsilectomy Teenager Hospitalization History See Above [facility] Other Hislocy general Narrative - Reported* Type Description Date [...] BACK SURGERY 07/2021 Hospitalization History See Above [facility] Other Summary Purpose Family History No Family [...] 2018 4:43pm Hospital Course Note MR#: [id number] [facility] Pt. Name: Sherly Humphreys Admitted: 08/23/2018 [...] myelopathy (M47.14) Referral Organization [facility] Referring Provider First Name Christian Referring Provider Last Name Alfonso Referring Provider Specialty Neurologica l Surgery Referred Organization [facility] Pain Managemen t Referred Provider Ivan Sams Referred Address [address],[place] [address] ,[place], [place],[address] Referred Provider Specialty Pain Medicin e Referral Priority Routine General Notes Laney Nini 023 12:45:54 PM >Received today and sent P2P Kristal Veloz 05/16/2022 02:01:28 PM >pt has been [facility] 09:01:37 AM >[facility] was a [facility] show [facility] 06/13/2022 11:23:40 AM >Telephone encounter was sent Reason Evaluate and Treat B ilateral Low Back Pain Diagnosis 1 Low back pain (M54.5 ) [facility] Referring Provider First [...] and content) DATE CREATED AUTHOR 11/22/2018 [facility] DATE CREATED AUTHOR AUTHOR'S ORGANIZ ATION 09/22/2022 [facility] DATE CREATED AUTHOR AUTHOR'S ORGANIZ ATION 02/22/2023 [facility] DATE CREATED AUTHOR AUTHOR'S ORGANIZ ATION 03/16/2023 [facility] DATE CREATED AUTHOR AUTHOR'S ORGANIZ ATION 04/28/2023 [facility] DATE CREATED AUTHOR AUTHOR'S ORGANIZ ATION 05/04/2023 [facility] EPIC REASON FOR VISIT (unrecogniz ed section and content) [id number] WK PO DISC ECTOMY6 wk po Discectomy3 [...] Lew Primary Care Provider Active Merissa Hernandez STOPER-BC Emergency Provider Active Goals (unrecognized section and [...] BE BASED ON THE PRIMARY CLINICAL RECORDS. [employer] provides no warranty or guarantee of the accuracy or completeness of information in this document.
[2023-05-10 11:05] LABS: Bilirubin Direct 0.1 mg/dL (0.0-0.2); Valproic Acid 25.4 ug/mL (50.0-100.0)
== END 2023-05-10 09:01 | disposition home or self-care (01) ==
PROVIDERS: PCP Nurse Practitioner; Visit Provider Psychiatry & Neurology Psychiatry
DX: F31.9 Bipolar disorder, unspecified (principal); Z79.899 Other long term (current) drug therapy
CPT/HCPCS: 36415; 80164; 82248

== ENCOUNTER 2023-06-07 08:49 | Outpatient (OUT) | payer BC, SELFPAY ==
--- NOTE | 2023-06-07 09:06 | PM.CN ---
Consult Note: HPI Data of Consult Patient: known to practice within the last 3 years Consult date: 01/01/23 Requesting Physician: Becca Meneses NP Primary Care Provider: Janene Lew NP Consult Narrative Reason for consult: f/u Narrative: pleasant 52yof who presents for evaluation. increasing low back pain. imaging reviewed of lumbar spine consistent with lumbar spondylosis and facet arthropathy. engages in >6 week course of provider directed home exercises, with limited benefit. underwent two previous discectomies, with little relief. neurosurgeon does not recommend further surgery. was advised to consider scs and declines. utilizes gabapentin and percocet. denies adverse med side effects. Today pain 7/10 in right middle back, bilateral buttock, bilateral low back, feels like a stabbing pain. Patient continues to find functional improvement from current medication regimen. cc:: CC: Becca Meneses NP Review of Systems ROS Status of ROS 10 or more systems reviewed and unremarkable except as noted in history and below Musculoskeletal Reports: back pain PFSH PFSH Social History Smoking status: Never smoker Meds Home Medications and Allergies Home Medications Medication Instructions Recorded Confirmed Type amlodipine 10 mg tablet 10 mg PO QDAY 12/18/22 02/19/23 History aripiprazole 10 mg tablet 10 mg PO QDAY 12/18/22 02/19/23 History aspirin 81 mg chewable tablet 81 mg PO QDAY 12/18/22 02/19/23 History atorvastatin 80 mg tablet 80 mg PO QDAY 12/18/22 02/19/23 History buspirone 30 mg tablet 30 mg PO BID 12/18/22 02/19/23 History cariprazine 6 mg capsule (Vraylar) 6 mg PO Q24H 12/18/22 02/19/23 History escitalopram oxalate 20 mg tablet 20 mg PO QDAY 12/18/22 02/19/23 History fenofibrate nanocrystallized 145 145 mg PO QDAY 12/18/22 02/19/23 History mg tablet furosemide 20 mg tablet 40 mg PO QDAY 12/18/22 02/19/23 History gabapentin 600 mg tablet 600 mg PO QDAY PRN neuromuscular 12/18/22 02/19/23 History blockade isosorbide mononitrate 30 mg 30 mg PO QDAY 12/18/22 02/19/23 History tablet,extended release 24 hr lamotrigine 200 mg tablet 200 mg PO QDAY 12/18/22 02/19/23 History lamotrigine 25 mg tablet 50 mg PO QDAY 12/18/22 02/19/23 History metoprolol succinate 25 mg 12.5 mg PO QDAY 12/18/22 02/19/23 History tablet,extended release 24 hr oxycodone-acetaminophen 5 mg-325 1 tab PO DAILY PRN pain 5 days #10 12/18/22 02/19/23 Rx mg tablet (Percocet) tabs pioglitazone 45 mg tablet 45 mg PO QDAY 12/18/22 02/19/23 History sacubitril 49 mg-valsartan 51 mg 1 tab PO BID 12/18/22 02/19/23 History tablet (Entresto) spironolactone 25 mg tablet 25 mg PO QDAY 12/18/22 02/19/23 History tizanidine 4 mg tablet 4 mg PO Q8H PRN muscle spasticity 12/18/22 02/19/23 History cetirizine 10 mg tablet (Zyrtec) 10 mg PO DAILY PRN allergy symptoms 01/01/23 02/19/23 History diazepam 10 mg tablet (Valium) 10 mg PO ONCE PRN sedation #1 tab 01/01/23 02/19/23 Rx ferrous sulfate 134 mg (27 mg 134 mg PO DAILY 01/01/23 02/19/23 History iron) tablet (High Potency Iron) oxycodone-acetaminophen 5 mg-325 1 tab PO BID PRN pain #60 tabs 01/01/23 02/19/23 Rx mg tablet (Percocet) oxycodone-acetaminophen 5 mg-325 1 tab PO BID PRN pain #60 tabs 01/31/23 02/19/23 Rx mg tablet (Percocet) oxycodone-acetaminophen 7.5 mg-325 1 tab PO BID PRN pain #60 tabs 03/01/23 Rx mg tablet (Percocet) oxycodone-acetaminophen 5 mg-325 1 tab PO BID PRN pain #60 tabs 04/12/23 Rx mg tablet (Percocet) oxycodone-acetaminophen 7.5 mg-325 1 tab PO BID PRN pain #60 tabs 05/14/23 Rx mg tablet (Percocet) Allergies Allergy/AdvReac Type Severity Reaction Status Date / Time Sulfa (Sulfonamide Allergy Mild Hives Verified 12/18/22 22:08 Antibiotics) prochlorperazine AdvReac Intermediate Agitated Verified 12/18/22 22:08 [From Compazine] promethazine [From Phenergan] AdvReac Intermediate Agitated Verified 12/18/22 22:08 sulfamethoxazole AdvReac Mild Hives Verified 12/18/22 22:08 [From Bactrim] trimethoprim [From Bactrim] AdvReac Mild Hives Verified 12/18/22 22:08 Exam Constitutional Documenting provider has reviewed patient's vital signs: yes Common normals: no apparent distress, oriented x3, healthy appearing, alert and well nourished General appearance: cooperative HENMT Common normals: normocephalic, hearing grossly normal bilaterally and moist oral mucous membranes Head and scalp: normocephalic Eye Common normals: PERRL Pupil: PERRL Neck & C-Spine Common normals: full ROM General: normal visual inspection Chest Common normals: inspection of chest normal Respiratory Common normals: normal respiratory effort, no retractions and no use of accessory muscles Back & Pelvis Lumbar spine/lower back: ROM limited, pain with ROM and straight leg raise negative bilaterally Other: positive facet loading axial low back pain without radiculopathy strength 5/5 in BLE, sensation intact Extremity Common normals: normal to inspection and full ROM Neuro Common normals: oriented x3, CN's II-XII intact bilaterally, moves all extremities, no focal motor deficits, no sensory deficits noted, deep tendon reflexes 2+ bilaterally and gait normal Sensorium/orientation: alert Motor exam: strength 5/5 throughout and no movement abnormalities noted Psych Common normals: mental status grossly normal, thought process normal, cooperative, affect normal, speech normal and activity/motor behavior normal Speech: normal speech Thought process: normal thought process Results Additional Findings Additional findings: I have checked an [place]AR[place] report on this patient today and there are no aberrancies noted in the prescribing history.?? A drug screen was completed and reviewed within the last year, and if there has not been a drug screen completed we ordered one today to monitor higher risk, state monitored pain medication use. As part of providing excellent, safe, comprehensive care, the following was completed at our patient's visit: 1. A medication reconciliation and review to ensure accurate knowledge of current/active medications, including asking our patients to inform us about any [id number] medications or herbal remedies/nutritional supplements/alternative remedies. 2. A review to specifically ensure our patients have had annual screening for: elevated body mass index (BMI), tobacco use, screening for depression, and screening for unhealthy alcohol use. When screening is concerning, patients are provided with education and the specific recommendation to discuss the concerning health issue and treatment options with their primary care provider. Assessment and Plan Assessment and Plan (1) Lumbar spondylosis: Assessment and Plan: The patient has had over 3 months of moderate to severe low back pain with functional impairment and inadequate response to conservative care including NSAIDS (unless there are contraindication such as concurrent blood thinners), multiple oral or topical pain medications, and home exercise program/physical therapy.? Patient has completed >6 weeks of guided home exercise program and/or formal physical therapy program without relief of their symptoms.? I have reviewed the imaging of the lumbar spine and no red flags were identified.? The imaging reveals radiographic findings consistent with lumbar spondylosis The Oswestry Disability Index was completed, and the patient scored a 46%.? The patient noted the following:?? moderate to severe pain, pain with ADLs, pain with walking, pain impacting sleep, pain impacting social life and travel? We discussed the risks and benefits of the procedure with the patient, and we are NOT planning on using sedation as outlined in the guidelines from Medicare unless there is a documented reason that sedation would be strongly recommended.?? ?The procedure will be completed with fluoroscopic guidance.? (2) Thoracic radiculopathy: Assessment and Plan: resolved (3) Thoracic stenosis: (4) Chronic prescription opiate use: Assessment and Plan: I have refilled the patient's opioid prescriptions at the above noted dose and schedule.? I feel these medications are improving the patient's quality of life and allow them to tolerate activities of daily living as well as participate in recreational activity.? The patient does not report intolerable side effects. The patient is NOT opioid naive and non-pharmacologic and non-opioid treatment has failed to significantly relieve the patient's pain and improve functionality. The patient has a diagnosis that is related to a somatic or visceral pain etiology. ? ?? I reviewed with the patient the potential risks and side effects with the use of? opioid medications including but not limited to respiratory depression,? sedation, and even . I verified the patient has access to naloxone should? these effects occur. I advised the patient to avoid the use of any other? sedation substances including alcohol, THC, and benzodiazepines while? taking opioid medications due to the risk of compounding side effects and? detrimental outcomes. I reviewed the INFORMATION CLERK BROKERAGE, pain treatment agreement, urine? drug screen, and opioid start talking forms. The patient was advised to let? their family know they had Naloxone in case they would need to administer? the medication.? ?? A drug screen was completed within the last year, and no aberrancies were noted regarding their use of controlled substances. The patient understands they are subject to the terms and conditions of the pain contract that they have signed. ? ?? I have checked an OARRS report on this patient today and there are no aberrancies noted in the prescribing history.? (5) Chronic pain syndrome: Plan bilateral L4-5 L5-S1 facet medial branch block x2 working towards thermal RFA. Patient previously had significant relief from lumbar RFAs with Dr Kelley in the past, greater than 50% relief greater than 1 year per pt. continue percocet to 7.5mg BID PRN moderate to severe pain continue other medications patient would not like to pursue SCS trial, no longer having severe thoracic pain with radiculopathy f/u 1 week after facet medial branch block
== END 2023-06-07 08:50 | disposition home or self-care (01) ==
LOC: PM 08:49
PROVIDERS: PCP Nurse Practitioner; Visit Provider Nurse Practitioner
DX: M47.816 Spondylosis without myelopathy or radiculopathy, lumbar region (principal); M54.14 Radiculopathy, thoracic region; M48.04 Spinal stenosis, thoracic region; Z79.891 Long term (current) use of opiate analgesic; G89.4 Chronic pain syndrome
CPT/HCPCS: G0463

== ENCOUNTER 2023-07-02 10:27 | Outpatient (OUT) | payer BC, OTHER, SELFPAY ==
[2023-07-02 11:20] LABS: Bilirubin Urine NEGATIVE (NEGATIVE); Blood Urine NEGATIVE (NEGATIVE); Clarity Urine CLEAR (CLEAR); Color Urine LT. YELLOW (YELLOW); Glucose Urine UA NEGATIVE (NEGATIVE); Ketones Urine NEGATIVE (NEGATIVE); Leukocyte Esterase Urine NEGATIVE (NEGATIVE); Nitrite Urine NEGATIVE (NEGATIVE); Protein Urine NEGATIVE (NEG/TRACE); Specific Gravity Urine 1.015 (1.005-1.025); Urobilinogen Urine 0.2 EU/dL (0.2-1.0); pH Urine 5.5 (5.0-9.0)
[2023-07-02 11:22] LABS: Urine Microscopic Indicated NO
[2023-07-02 11:25] LABS: Anion Gap 14.1; BUN Creatinine Ratio 26.1; Calcium 8.9 mg/dL (8.5-10.1); Carbon Dioxide 27.6 mmol/L (21.0-32.0); Chloride 109 mmol/L (98-107); Estimated GFR (African America 41 (>=60); Estimated GFR (Non-African Ame 34 (>=60); Glucose 157 mg/dL (74-106); Potassium 4.7 mmol/L (3.5-5.1); Sodium 146 mmol/L (136-145)
== END 2023-07-02 10:28 | disposition home or self-care (01) ==
LOC: LAB 10:29
PROVIDERS: PCP Nurse Practitioner; Visit Provider Nurse Practitioner
DX: E11.22 Type 2 diabetes mellitus with diabetic chronic kidney disease (principal); Z87.898 Personal history of other specified conditions; N18.30 Chronic kidney disease, stage 3 unspecified
CPT/HCPCS: 36415; 80048; 81003; 87086; 87150; 87186

== ENCOUNTER 2023-07-09 06:34 | Day surgery (SDC) | payer BC, SELFPAY ==
[2023-07-09 07:14] LABS: Glucometer 137 mg/dL (74-106)
[2023-07-09 07:17] VITALS: BP 141/91; PULSE 56; RESP 16; TEMP 36.6; O2SAT 100
[2023-07-09 07:39] VITALS: BP 161/86; PULSE 55; RESP 18; O2SAT 96
[2023-07-09] MEDS: LIDOCAINE HCL 2% PF 100 MG/5 ML VIAL 3 ML INJ (07:42)
[2023-07-09] MEDS: BUPIVACAINE HCL 0.5% PF 50 MG/10 ML VIAL 8 ML INJ (07:42)
[2023-07-09 07:43] VITALS: PULSE 51; RESP 18; O2SAT 95
[2023-07-09 07:44] VITALS: BP 157/89
--- NOTE | 2023-07-09 07:46 | W.PM.PROCNOT ---
Date of procedure: 07/09/23 Pre-op diagnosis: Lumbar spondylosis Post-op diagnosis: same as pre-op Procedure: Procedure: Bilateral L4-5, L5-S1 medial branch block Medications: Bupivacaine 0.25% 6cc The patient was seen and examined in the preoperative holding area.? An informed consent was obtained and placed on the chart.? The patient was brought to the medical procedure unit and placed in the prone position.? A timeout was completed verifying correct patient, procedure site, positioning, plan, and special equipment.? Using aseptic technique, the needle was placed at left L4. Under direct fluoroscopic visualization a Quincke-tipped spinal needle was advanced to the junction of the superior articulating process with the transverse process at the designated medial branch segment.? Preceded by negative aspiration, the above-mentioned injectate was placed in 1 mL aliquots.? The procedure was repeated at left L5, S1.? The needle was removed and insertion site was covered. The same procedure, at the same levels, was completed on the right side. The patient was taken to the postprocedural recovery area and monitored for an appropriate length of time before found suitable for discharge in the company of a responsible adult. Anesthesia: Local Surgeon: Elza Conway Pathology: none sent Condition: stable Disposition: no change
== END 2023-07-09 07:47 | disposition home or self-care (01) ==
PROVIDERS: PCP Nurse Practitioner; Visit Provider Anesthesiology
DX: M47.816 Spondylosis without myelopathy or radiculopathy, lumbar region (principal); Z79.84 Long term (current) use of oral hypoglycemic drugs
CPT/HCPCS: 36415; 64493; 64494; 82948

== ENCOUNTER 2023-07-25 14:36 | Outpatient (OUT) | payer BC, OTHER, SELFPAY ==
--- NOTE | 2023-07-25 15:39 | P.CN_ITS ---
Consult Note: HPI Data of Consult Patient: known to practice within the last 3 years Consult date: 01/01/23 Requesting Physician: Becca Meneses NP Primary Care Provider: Janene Lew NP Consult Narrative Reason for consult: f/u Narrative: pleasant [id number] who presents for evaluation. increasing low back pain. imaging reviewed of lumbar spine consistent with lumbar spondylosis and facet arthropathy. engages in >6 week course of provider directed home exercises, with limited benefit. underwent two previous discectomies, with little relief. neurosurgeon does not recommend further surgery. was advised to consider scs and declines. utilizes gabapentin and percocet. denies adverse med side effects. Today pain 7/10 in right middle back, bilateral buttock, bilateral low back, feels like a stabbing pain. Patient continues to find functional improvement from current medication regimen. most recently underwent bilateral L4-5 L5-S1 facet medial branch #1 with 100% improvement in low back pain and functional improvement for 1 week after injection. cc:: CC: Becca Meneses NP Review of Systems ROS Status of ROS 10 or more systems reviewed and unremark able except as noted in history and below Musculoskeletal Reports: back pain PFSH PFSH Social History Smoking status: Never smoker Meds Home Medications and Allergies Home Medications ?Medication ?Instructions ?Recorded ?Confirmed ?Type amlodipine 10 mg tablet 10 mg PO QDAY 12/18/22 07/09/23 History aripiprazole 10 mg tablet 10 mg PO QDAY 12/18/22 07/09/23 History aspirin 81 mg chewable tablet 81 mg PO QDAY 12/18/22 07/09/23 History atorvastatin 80 mg tablet 80 mg PO QDAY 12/18/22 07/09/23 History buspirone 30 mg tablet 30 mg PO BID 12/18/22 07/09/23 History cariprazine 6 mg capsule (Vraylar) 6 mg PO Q24H 12/18/22 07/09/23 History escitalopram oxalate 20 mg tablet 20 mg PO QDAY 12/18/22 07/09/23 History fenofibrate nanocrystallized 145 145 mg PO QDAY 12/18/22 07/09/23 History mg tablet furosemide 20 mg tablet 40 mg PO QDAY 12/18/22 07/09/23 History gabapentin 600 mg tablet 600 mg PO QDAY PRN neuromuscular 12/18/22 07/09/23 History blockade isosorbide mononitrate 30 mg 30 mg PO QDAY 12/18/22 07/09/23 History tablet,extended release 24 hr metoprolol succinate 25 mg 12.5 mg PO QDAY 12/18/22 07/09/23 History tablet,extended release 24 hr pioglitazone 45 mg tablet 45 mg PO QDAY 12/18/22 07/09/23 History sacubitril 49 mg-valsartan 51 mg 1 tab PO BID 12/18/22 07/09/23 History tablet (Entresto) spironolactone 25 mg tablet 25 mg PO QDAY 12/18/22 07/09/23 History tizanidine 4 mg tablet 4 mg PO Q8H PRN muscle spasticity 12/18/22 07/09/23 History cetirizine 10 mg tablet (Zyrtec) 10 mg PO DAILY PRN allergy symptoms 01/01/23 07/09/23 History ferrous sulfate 134 mg (27 mg 134 mg PO DAILY 01/01/23 07/09/23 History iron) tablet (High Potency Iron) oxycodone-acetaminophen 7.5 mg-325 1 tab PO BID PRN pain #60 tabs 07/25/23 Rx mg tablet (Percocet) Allergies Allergy/AdvReac Type Severity Reaction Status Date / Time Sulfa (Sulfonamide Allergy Mild Hives Verified 07/09/23 07:23 Antibiotics) prochlorperazine AdvReac Intermediate Agitated Verified 07/09/23 07:23 [From Compazine] promethazine [From Phenergan] AdvReac Intermediate Agitated Verified 07/09/23 07:23 sulfamethoxazole AdvReac Mild Hives Verified 07/09/23 07:23 [From Bactrim] trimethoprim [From Bactrim] AdvReac Mild Hives Verified 07/09/23 07:23 Exam Constitutional Documenting provider has reviewed patient's vital signs: yes Common normals: no apparent distress, oriented x3, healthy appearing, alert and well nourished General appearance: cooperative HENWA Common normals: normocephalic, hearing grossly normal bilaterally and moist oral mucous membranes Head and scalp: normocephalic Eye Common normals: PERRL Pupil: PERRL Neck & C-Spine Common normals: full ROM General: normal visual inspection Chest Common normals: inspection of chest normal Respiratory Common normals: normal respiratory effort, no retractions and no use of accessory muscles Back & Pelvis Lumbar spine/lower back: ROM limited, pain with ROM and straight leg raise negative bilaterally Other: positive facet loading axial low back pain without radiculopathy strength 5/5 in BLE, sensation intact Extremity Common normals: normal to inspection and full ROM Neuro Common normals: oriented x3, CN's II-XII intact bilaterally, moves all extremities, no focal motor deficits, no sensory deficits noted and deep tendon reflexes 2+ bilaterally Sensorium/orientation: alert Motor exam: strength 5/5 throughout and no movement abnormalities noted Psych Common normals: mental status grossly normal, thought process normal, cooperative, affect normal, speech normal and activity/motor behavior normal Speech: normal speech Thought process: normal thought process Results Additional Findings Additional findings: If on a controlled substance or opioids, I have checked an [place] report on this patient and there are no aberrancies noted in the prescribing history.??If on a controlled substance or opioid a drug screen was completed and reviewed within the last year, and if there has not been a drug screen completed we ordered one today to monitor higher risk, state monitored pain medication use. As part of providing excellent, safe, comprehensive care, the following was completed at our patient's visit: 1. A medication reconciliation and review to ensure accurate knowledge of current/active medications, including asking our patients to inform us about any [id number] medications or herbal remedies/nutritional supplements/alternative remedies. 2. A review to specifically ensure our patients have had annual screening for screening for depression, screening for tobacco use, and screening for unhealthy alcohol use. For concerning screenings had a discussion with the patient, provided patient education, and recommended follow-up with primary care provider when appropriate. If patient noted with a risk of falling, they received education on strength, gait, and balance training to prevent future risk of falling. Assessment and Plan Assessment and Plan (1) Lumbar spondylosis: Assessment and Plan: The patient has had over 3 months of moderate to severe low back pain with functional impairment and inadequate response to conservative care including NSAIDS (unless there are contraindication such as concurrent blood thinners), multiple oral or topical pain medications, and home exercise program/physical therapy.? Patient has completed >6 weeks of guided home exercise program and/or formal physical therapy program without relief of their symptoms.? I have reviewed the imaging of the lumbar spine and no red flags were identified.? The imaging reveals radiographic findings consistent with lumbar spondylosis The Oswestry Disability Index was completed, and the patient scored a 46%.? The patient noted the following:?? moderate to severe pain, pain with ADLs, pain with walking, pain impacting sleep, pain impacting social life and travel? We discussed the risks and benefits of the procedure with the patient, and we are NOT planning on using sedation as outlined in the guidelines from Medicare unless there is a documented reason that sedation would be strongly recommended.?? ?The procedure will be completed with fluoroscopic guidance.? (2) Thoracic radiculopathy: Assessment and Plan: resolved (3) Thoracic stenosis: (4) Chronic prescription opiate use: Assessment and Plan: I have refilled the patient's opioid prescriptions at the above noted dose and schedule.? I feel these medications are improving the patient's quality of life and allow them to tolerate activities of daily living as well as participate in recreational activity.? The patient does not report intolerable side effects. The patient is NOT opioid naive and non-pharmacologic and non-opioid treatment has failed to significantly relieve the patient's pain and improve functionality. The patient has a diagnosis that is related to a somatic or visceral pain etiology. ? ?? I reviewed with the patient the potential risks and side effects with the use of? opioid medications including but not limited to respiratory depression,? sedation, and even . I verified the patient has access to naloxone should? these effects occur. I advised the patient to avoid the use of any other? sedation substances including alcohol, THC, and benzodiazepines while? taking opioid medications due to the risk of compounding side effects and? detrimental outcomes. I reviewed the MENTAL RETARDATION AIDE, pain treatment agreement, urine? drug screen, and opioid start talking forms. The patient was advised to let? their family know they had Naloxone in case they would need to administer? the medication.? ?? A drug screen was completed within the last year, and no aberrancies were noted regarding their use of controlled substances. The patient understands they are subject to the terms and conditions of the pain contract that they have signed. ? ?? I have checked an [place] report on this patient today and there are no aberrancies noted in the prescribing history.? (5) Chronic pain syndrome: Plan bilateral L4-5 L5-S1 facet medial branch block x2 working towards thermal RFA. Patient previously had significant relief from lumbar RFAs with Dr Kelley in the past, greater than 50% relief greater than 1 year per pt. continue percocet to 7.5mg BID PRN moderate to severe pain continue other medications patient would not like to pursue SCS trial, no longer having severe thoracic pain with radiculopathy f/u 1 week after facet medial branch block
== END 2023-07-25 14:37 | disposition home or self-care (01) ==
PROVIDERS: PCP Nurse Practitioner; Visit Provider Nurse Practitioner
DX: M47.816 Spondylosis without myelopathy or radiculopathy, lumbar region (principal); M48.04 Spinal stenosis, thoracic region; Z79.891 Long term (current) use of opiate analgesic; G89.4 Chronic pain syndrome
CPT/HCPCS: G0463

== ENCOUNTER 2023-09-24 08:24 | Day surgery (SDC) | payer BC, SELFPAY ==
[2023-09-24 08:45] VITALS: BP 129/87; PULSE 57; TEMP 36.2; O2SAT 98
[2023-09-24 08:50] LABS: Glucometer 85 mg/dL (74-106)
[2023-09-24] MEDS: BUPIVACAINE HCL 0.25% PF 25 MG/10 ML VIAL INJ (09:20)
[2023-09-24] MEDS: LIDOCAINE HCL 2% PF 100 MG/5 ML VIAL INJ (09:20)
[2023-09-24 09:21] VITALS: BP 135/67; BP 139/66; PULSE 54; PULSE 58; O2SAT 92; O2SAT 94
--- NOTE | 2023-09-24 09:24 | W.PM.PROCNOT ---
Date of procedure: 09/24/23 Pre-op diagnosis: Pain due to lumbar spondylosis without myelopathy Post-op diagnosis: same as pre-op Procedure: Procedure: Bilateral L4-5, L5-S1 medial branch block Medications: Bupivacaine 0.25% 6cc The patient was seen and examined in the preoperative holding area.? An informed consent was obtained and placed on the chart.? The patient was brought to the medical procedure unit and placed in the prone position.? A timeout was completed verifying correct patient, procedure site, positioning, plan, and special equipment.? Using aseptic technique, the needle was placed at left L4. Under direct fluoroscopic visualization a Quincke-tipped spinal needle was advanced to the junction of the superior articulating process with the transverse process at the designated medial branch segment.? Preceded by negative aspiration, the above-mentioned injectate was placed in 1 mL aliquots.? The procedure was repeated at left L5, S1.? The needle was removed and insertion site was covered. The same procedure, at the same levels, was completed on the right side. The patient was taken to the postprocedural recovery area and monitored for an appropriate length of time before found suitable for discharge in the company of a responsible adult. Anesthesia: Local Surgeon: Elza Conway Pathology: none sent Condition: stable Disposition: no change
== END 2023-09-24 09:26 | disposition home or self-care (01) ==
LOC: SURGOUT 08:25
PROVIDERS: PCP Nurse Practitioner; Visit Provider Anesthesiology
DX: M47.816 Spondylosis without myelopathy or radiculopathy, lumbar region (principal); E11.22 Type 2 diabetes mellitus with diabetic chronic kidney disease; N18.30 Chronic kidney disease, stage 3 unspecified
CPT/HCPCS: 36415; 64493; 64494; 80048; 82948; 83036

== ENCOUNTER 2023-09-24 09:30 | Outpatient (OUT) | payer BC, SELFPAY ==
[2023-09-24 10:14] LABS: Estimated Average Glucose 120 mg/dL; Glycohemoglobin A1C 5.8 % (4.5-6.2)
[2023-09-24 11:03] LABS: Anion Gap 15.1; BUN Creatinine Ratio 22.5; Calcium 9.1 mg/dL (8.5-10.1); Carbon Dioxide 24.7 mmol/L (21.0-32.0); Chloride 106 mmol/L (98-107); Estimated GFR (African America 33 (>=60); Estimated GFR (Non-African Ame 28 (>=60); Glucose 91 mg/dL (74-106); Potassium 3.8 mmol/L (3.5-5.1); Sodium 142 mmol/L (136-145)
== END 2023-09-24 09:31 | disposition home or self-care (01) ==
LOC: LAB 09:30
PROVIDERS: PCP Nurse Practitioner; Visit Provider Nurse Practitioner
DX: E11.22 Type 2 diabetes mellitus with diabetic chronic kidney disease (principal); N18.30 Chronic kidney disease, stage 3 unspecified
CPT/HCPCS: 36415; 80048; 83036

== ENCOUNTER 2023-09-28 07:58 | Outpatient (OUT) | payer BC, SELFPAY ==
--- OUTSIDE RECORDS SUMMARY | 2023-09-28 08:03 | XMS_ITS | CCD ---
Author Organization [facility] Care Team Providers Care Portable Canteen Operator Name Role Phone Peng Merino Admitting Unavailable Peng Merino Attending Unavailable GEOVANNI BRUNNER Primary Care Unavailable HAMMAD LING Referring Unavailabl e HI Procedure Practitioner Unavailab TK Beaulieu A Surgeon Unavailable Christian Mckenzie Unavailable Janene Lew Primary Care Provider MD Christian Mckenzie Attending Provider ELIER Bolivar Emma Attending Provider Emma Bolivar Unavailable Halle Mac Unavailable Janene Lew Primary Care Provider STU Hernandez- Merissa Antunez Emergency Provider Ivan Sams Unavailable AICHHOLZ, HELIX COIL WINDER JANENE Consulting Unavailable AICHHOLZ, HELIX COIL WINDER JANENE Attending Unavailable AICHHOLZ, HELIX COIL WINDER JANENE Admitting Unavailable AICHHOLZ, HELIX COIL WINDER JANENE Primary Care Unavailable AICHHOLZ, HELIX COIL WINDER JANENE Consulting Unavailable AICHHOLZ, HELIX COIL WINDER JANENE Attending Unavailable AICHHOLZ, HELIX COIL WINDER JANENE Admitting Unavailable AICHHOLZ, HELIX COIL WINDER JANENE Primary Care Unavailable AICHHOLZ, HELIX COIL WINDER JANENE Primary Care Unavailable AICHHOLZ, HELIX COIL WINDER JANENE Consulting Unavailable AICHHOLZ, HELIX COIL WINDER JANENE Admitting Unavailable AICHHOLZ, HELIX COIL WINDER JANENE Attending Unavailable AYDIN Carrillo, DR MIGUEL Attending Unavailable DR MYRIAM SAMANIEGO Admitting Unavailable AYDIN Carrillo, DR MIGUEL Consulting Unavailable AICHHOLZ, HELIX COIL WINDER JANENE Primary Care Unavailable AICHHOLZ, HELIX COIL WINDER JANENE Primary Care Unavailable DWAYNE FRIEDMAN Admitting Unavailable DWAYNE FRIEDMAN Attending Unavailable CLEMENT PLUMMER Consulting Unavailable Wan Jenkins Consulting Unavailable AICHHOLZ, HELIX COIL WINDER JANENE Primary Care Unavailable EVON TRAMMELL Attending Unavailable JP, EVON Admitting Unavailable EOVN TRAMMELL Consulting Unavailable LUZ COELLO Consulting Unavailable NATHAN COLE Consulting Unavailable LIN GARRETT Consulting Unavailable AICHHOLZ, HELIX COIL WINDER JANENE Primary Care Unavailable AICHHOLZ, HELIX COIL WINDER JANENE Admitting Unavailable AICHHOLZ, HELIX COIL WINDER JANENE Attending Unavailable DR ALEX ALLEN V Consulting Unavailable AICHHOLZ, HELIX COIL WINDER JANENE Consulting Unavailable AICHHOLZ, HELIX COIL WINDER JANENE Consulting Unavailable AICHHOLZ, HELIX COIL WINDER JANENE Attending Unavailable AICHHOLZ, HELIX COIL WINDER JANENE Admitting Unavailable AICHHOLZ, HELIX COIL WINDER JANENE Primary Care Unavailable DR KATHY LOBATO Consulting Unavailable AICHHOLZ, HELIX COIL WINDER JANENE Attending Unavailable AICHHOLZ, HELIX COIL WINDER JANENE Admitting Unavailable AICHHOLZ, HELIX COIL WINDER JANENE Primary Care Unavailable DR ALEX ALLEN V Consulting Unavailable AICHHOLZ, HELIX COIL WINDER JANENE Consulting Unavailable AICHHOLZ, HELIX COIL WINDER JANENE Consulting Unavailable AICHHOLZ, HELIX COIL WINDER JANENE Primary Care Unavailable AICHHOLZ, HELIX COIL WINDER JANENE Attending Unavailable AICHHOLZ, HELIX COIL WINDER JANENE Admitting Unavailable AICHHOLZ, HELIX COIL WINDER JANENE Primary Care Unavailable AICHHOLZ, HELIX COIL WINDER JANENE Admitting Unavailable AICHHOLZ, HELIX COIL WINDER JANENE Consulting Unavailable AICHHOLZ, HELIX COIL WINDER JANENE Attending Unavailable DR KATHY LOBATO Consulting Unavailable AICHHOLZ, HELIX COIL WINDER JANENE Primary Care Unavailable BAKHOUS, AZIZ Admitting Unavailable BAKHOUS, AZIZ Attending Unavailable AICHHOLZ, HELIX COIL WINDER JANENE Attending Unavailable AICHHOLZ, HELIX COIL WINDER JANENE Admitting Unavailable AICHHOLZ, HELIX COIL WINDER JANENE Primary Care Unavailable AICHHOLZ, HELIX COIL WINDER JANENE Primary Care Unavailable AICHHOLZ, HELIX COIL WINDER JANENE Consulting Unavailable AICHHOLZ, HELIX COIL WINDER JANENE Attending Unavailable AICHHOLZ, HELIX COIL WINDER JANENE Admitting Unavailable DR KATHY LOBATO Consulting Unavailable AICHHOLZ, HELIX COIL WINDER JANENE Primary Care Unavailable AICHHOLZ, HELIX COIL WINDER JANENE Admitting Unavailable AICHHOLZ, HELIX COIL WINDER JANENE Attending Unavailable AICHHOLZ, HELIX COIL WINDER JANENE Consulting Unavailable AICHHOLZ, HELIX COIL WINDER JANENE Primary Care Unavailable DOLORES STRATTON Attending Unavailable AMBER ., DOLORES Admitting Unavailable ASHLEY ., MR DELIA Consulting Unavailable AMBER ., DOLORES Consulting Unavailable ALEX AVINA Consulting Unavailable AICHHOLZ, HELIX COIL WINDER JANENE Primary Care Unavailable EVON TRAMMELL Attending Unavailable JP, EVON Admitting Unavailable EVON TRAMMELL Consulting Unavailable Aichholrufus, Janene J Primary Care Provider [phone] MD Valdemar Alonso Attending Provider MD Fauzia Huffman Attending Provider UnavailMD Halle Felton Referring Provider [phone] SONIA HAQ Primary Care Unavailable Aichholrufus, Janene J Attending Unavailable Aichholz, Janene J Admitting Unavailable Man SHARMA, Elza Haywood Attending Unavailable Man SHARMA, Elza Haywood Attending Unavailable Man SHARMA, Elza Haywood Attending Unavailable Aichholz, Janene J Primary Care Unavailable Fauzia Huffman Admitting Unavailable Fauzia Huffman Attending Unavailable Bubba, Donaldiz Referring Unavailable Aichholz, Janene J Primary Care Unavailable Fauzia Huffman Admitting Unavailable Fauzia Huffman Attending Unavailable Valdemar Alonso Admitting Unavailab le Valdemar Alonso Attending Unavailab le Aichholz, Janene J Primary Care Unavailable Bakmichaels, Aziz Admitting Unavailable Bakmichaels Aziz Attending Unavailable Aichholz, Janene J Primary Care Unavailable ELTAHAWY, EHAB Attending Unavailable ELTAHAWY, EHAB Attending Unavailable JONATHAN SMALL Attending Unavailable JONATHAN SMALL Attending Unavailable JANENE LEW Attending Unavailable BAN ARTIS Attending Unavailable AICHHOLZ, JANENE Referring Unavailable BAN ARTIS Attending Unavailable AICHHOLZ JANENE Attending Unavailable JESSICA GASPAR S Attending Unavailable AICHHOLZ, JANENE Referring Unavailable RUSHER JESSICA S Referring Unavailable AICSAULO, JANENE Attending Unavailable BAN ARTIS Attending Unavailable FAWWAD, NUNEZ Attending Unavailable Allergies Allergy Classification Reported Allergen(s) Allergy Type Date of Onset Reaction(s) Facility Dihydrofolate Reductase Inhibitors (antibiotic) (1 source) Trimethoprim Drug Allergy [facility] Repository empagliflozin (1 source) empagliflozin Drug Allergy [facility] Repository Penicillins (antibiotic) (1 source) Penicillins Drug Allergy [facility] Repository Prochlorperazine (1 source) Prochlorperazine Drug Allergy [facility] Repository Promethazine (1 source) Promethazine Drug Allergy [facility] Repository Sulfonamides (antibiotic) (1 source) Sulfamethoxazole Drug Allergy [facility] Repository (2 sources) Cephalexin Drug Allergy [facility] Repository (2 sources) Levamisole Drug Allergy [facility] Repository (2 sources) Omeprazole; Translations: [OMEPRAZOLE] Drug Allergy 016 [facility] Repository (14 sources) Prochlorperazine Drug Allergy 010 Unknown [facility] Rep[facility] (14 sources) Sulfamethoxazole / Trimethoprim Drug Allergy 010 Unknown [facility] Repository (12 sources) Penicillins (Antibiotic) Propensity to adverse reactions Unknown [employer] Other (17 sources) Promethazine; Translations: [PROMETHAZINE] Drug Allergy Unknown, Seizure [facility] (5 sources) empagliflozin; Translations: [EMPAGLIFLOZIN] Drug Allergy Unknown Reaction [facility] (6 sources) Penicillins; Translations: [Penicillins] Allergy to substance [facility] (5 sources) Prochlorperazine; Translations: [PROCHLORPERAZINE] Drug Allergy [facility] (5 sources) Sulfamethoxazole; Translations: [SULFAMETHOXAZOLE] Drug Allergy [facility] (4 sources) Trimethoprim Drug Allergy [facility] (1 source) Sulfonamides (Antibiotic) Drug allergy (disorder) [facility] Repository (1 source) Cephalexin; Translations: [CEPHALEXIN] Drug Allergy [facility] Repository (1 source) Doxycycline; Translations: [DOXYCYCLINE CALCIUM] Drug Allergy [facility] Repository (1 source) Esomeprazole; Translations: [ESOMEPRAZOLE MAGNESIUM] Drug Allergy [facility] Repository (1 source) pantoprazole; Translations: [PANTOPRAZOLE] Drug Allergy [facility] Repository (1 source) Sulfamethoxazole / Trimethoprim; Translations: [SULFAMETHOXAZOLE-T RIMETHOPRIM] Drug Allergy [facility] Repository (1 source) [place]; Translations: [PHENERGAN PLAIN] Propensity to adverse reactions to drug (disorder) [facility] Repository Medications Current Medications Medication Drug Class(es) Dates Sig (Normalized) Sig (Original) acetaminophen 325 mg / oxyCODONE hydrochloride 5 mg oral tablet (7 sources) Opioid Agonist Start: 06-24-2022 take 1 tablet by mouth every six hours Oxycodone-Acetami nophen Active 1 TAB PO Q6H 10 3 June 24, 2022 [id number] 200 actuat albuterol 0.09 mg/actuat metered dose inhaler (5 sources) beta2-Adrenergic Agonist Start: 06-04-2021 take 1 [...] ate Active ARIPiprazole 30 mg oral tablet (11 sources) Atypical Antipsychotic Start: 06-04-2021 take 30 [...] aspirin 81 mg delayed release oral tablet (11 sources) Platelet Aggregation Inhibitor, Nonsteroidal Anti-inflammatory Drug Start: 06-06-2021 take 81 mg by mouth once daily Aspirin Active 81 MG PO Daily 90 June 06, 2021 12:00am take 1 tablet by brandin th every twenty-four hours Aspirin 81 MG 1 tablet Orally Once a day Active atorvastatin 40 mg oral tablet (16 sources) HMG-CoA Reductase Inhibitor Start: 06-04-2021 take 40 mg by mouth at bedtime Atorvastatin Active 40 MG PO Bedtime June 04, 2021 12:00am take 1 tablet by brandin th every twenty-four hours Atorvastatin Calcium 80 MG 1 tablet Oral ly Once a day Active Biotin (6 sources) Biotin Active busPIRone hydrochloride 30 mg oral tablet (16 sources) Start: take 30 mg by mouth [...] Active cetirizine hydrochloride 10 mg oral tablet (13 sources) Histamine-1 Receptor Antagonist Start: 06-04-2021 take [...] A ctive ciprofloxacin 500 mg oral tablet (4 sources) Quinolone Antimicrobial Start: 08-13-2021 take 1 tablet by mouth every two hours Ciprofloxacin Hcl (Cipro) 500 mg Tablet Active 500 MG PO Q12H August 12, 2021 11:00pm administer dose at least 2 hrs before/6 hrs after dairy products, calcium, zinc, and/or iron-containing products escitalopram 20 mg oral tablet (12 sources) Serotonin Reuptake Inhibitor Start: 06-04-2021 take 20 mg by mouth once daily Escitalopram Oxalate Active 20 MG PO Daily June 04, 2021 12:00am Escitalopram Oxa late in am 1100 Active fenofibrate 145 mg oral tablet (12 sources) Peroxisome Proliferator Receptor alpha Agonist Start: 12-05-2019 take 145 mg by mouth once daily Fenofibrate Nanocrystallized Active 145 MG PO Daily June 04, 2021 12:00am Fenofibrate Acti ve fluticasone propionate 0.05 mg/actuat metered dose nasal spray (5 sources) Corticosteroid Start: 06-04-2021 Fluticasone Pr opionate [...] Active Start: 11-10-2021 take 2 tablets by [facility] every twelve hours Gabapentin 600 MG 2 tablets Orally bid for 20 days Oct, Active Start: 09-29-2021 take 1-2 capsules by mouth twice daily Gabapentin 300 MG 1-2 capsule Orally twice a day for 30 day(s) Sep, Active Start: 12-05-2019 take 1 capsule by [facility] every twenty-four hours Gabapentin 300 MG 1 capsule Orally Once a day for 30 day(s) Nov, Active glipiZIDE 5 mg oral tablet (16 sources) Sulfonylurea Start: 06-04-2021 take 5 mg [...] mononitrate 30 mg extended release oral tablet (11 sources) Nitrate Vasodilator Start : 06-04 take [...] day Active lidocaine 0.05 mg/mg medicated patch (2 sources) Antiarrhythmic, Amide Local Anesthetic Start: 06-25-19 apply 1 dose topically once daily Lidocaine Active 1 PATCH TOPICAL Daily June 24, 2022 12:00am leave on most painful area for up to 12 hrs lisinopril 40 mg oral tablet (16 sources) Angiotensin Converting Enzyme Inhibitor Start: 06-04-19 take 40 mg by mouth once daily [...] day for 30 day(s) Jan, Active Methylprednisolone (2 sources) Corticosteroid Start: 06-24-2022 Methylprednisolone Active 0 PO .COMPLEX June 24, 2022 12:00am orally per package directions 24 hr metoprolol succinate 25 mg extended release oral tablet (11 sources) beta-Adrenergic Seema Start: 06-04-2021 take 12.5 mg by mouth once daily Metoprolol Succinate Active 12.5 MG PO Daily June 04, 2021 12:00am take 0.5 tablet by mouth once da kaiden Toprol XL 25 MG 1/2 tablet Orally Once a day Active Metoprolol Succi marcos ER Active mirtazapine 15 mg oral tablet (5 sources) Start: 06-04-2021 take 30 mg by mouth at bedtime Mirtazapine Active 30 MG PO Bedtime June 04, 2021 12:00am Mirtazapine befo re bed, 2130 Active nitroglycerin 0.4 mg sublingual tablet (6 sources) Nitrate Vasodilator Nitrostat 0. 4 MG Sublingual Active ondansetron 4 mg oral tablet (1 source) Serotonin-3 Receptor Antagonist Start: 020 take 1 tablet by mouth three times daily as needed for nausea Zofran 4 mg 1 tablet Orally TID as needed for nausea for 5 days May, Active pioglitazone 30 mg oral tablet (11 sources) Peroxisome Proliferator Receptor alpha Agonist, Peroxisome Proliferator Receptor gamma Agonist, Thiazolidinedione Start: 022 take 45 mg by mouth once daily Pioglitazone Active 45 MG PO Daily June 04, 2021 12:00am take 1 tablet by brandin th every twenty-four hours Actos 45 MG 1 tablet Orally Once a day Active Pioglitazone HCl Active Potassium (6 sources) Potassium Active spironolactone 50 mg oral tablet (10 sources) Aldosterone Antagonist Start: 06-04-19 take 50 mg by mouth once daily [...] Not-Taking cyclobenzaprine hydrochloride 10 mg oral tablet (4 sources) Muscle Relaxant Start: 08-13-2021 End: 06-24-2022 [...] Start: 03-22-2018 take 1 tablet by brandin th once daily Multi-Vitamin - 1 tablet Orally Once a day for 30 day(s) Mar, Active oxyCODONE hydrochloride 5 mg oral tablet (4 sources) Opioid Agonist Start: 08-13-2021 End: 06-24-2022 take 5-10 mg by mouth every six hours Oxycodone Discontinued 5 - 10 MG PO Q6H 50 8 August 13, 2021 June 24, 2022 5:53pm Prednisone (4 sources) Start: 08-13-2021 End: 06-24-2022 Prednisone Discontinued [...] 3 days tiZANidine 4 mg oral tablet (11 sources) Central alpha-2 Adrenergic Agonist Start: 06-04-2021 [...] [Chronic kidney disease, stage 3 unspecified] Chronic Chronic kidney disease (2 sources) Chronic kidney disease; Translations: [Chronic kidney disease, stage 3b] Onset: 05-17-2023 Congestive heart failure; nonhypertensive (2 sources) Chronic diastolic (congestive) heart failure; Translations: [Chronic diastolic (congestive) heart failure] Onset: 10-03-2022 Chronic Coronary atherosclerosis and other heart disease (7 sources) Coronary arteriosclerosis; Translations: [Atherosclerotic heart disease of [place] coronary artery without angina pectoris] Onset: 09-11-2022 [...] reflux disease without esophagitis] Chronic Essential hypertension (20 sources) Essential hypertension; Translations: [Essential (primary) hypertension] Onset: 09-11-2022 08-10-2021 Chronic Genitourinary symptoms and ill-defined conditions (12 sources) Delay when starting to pass urine; Translations: [Hesitancy of micturition] Episodic Headache; including migraine (4 sources) Tension-type headache; Translations: [Tension-type headache, unspecified, not intractable] 02-25-2020 Chronic Hypertension with complications and secondary hypertension (8 sources) Hypertensive renal disease; Translations: [Hypertensive chronic kidney disease with stage 1 through stage 4 chronic kidney disease, or unspecified chronic kidney disease] Onset: 05-17-2023 Chronic Malaise and fatigue (4 sources) Decline in functional status; Translations: [Other malaise] 08-10-2021 Episodic Mood disorders (2 sources) Bipolar disorder, unspecified; Translations: [BIPOLAR DISORDER UNSPECIFIED] Onset: 05-31-2022 Chronic Nonspecific chest pain (17 sources) Chest pain; Translations: [Other chest pain] Onset: 09-11-2022 06-04-2021 Episodic Nutritional deficiencies (12 sources) Vitamin D deficiency; Translations: [Vitamin D deficiency, unspecified] Chronic Other aftercare (1 source) 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; 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] Onset: 09-11-2022 Episodic Other aftercare (1 source) exterminator termite (current) use of oral hypoglycemic drugs; Translations: [SENIOR MAINTENANCE MACHINIST USE ORAL HYPOGLYCEMIC DX] Onset: 09-11-2022 Episodic Other aftercare (1 source) 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; Translations: [OTH DETENTION CURRENT [...] Chronic Other nutritional; endocrine; and metabolic disorders (5 sources) Morbid (severe) obesity due to excess [...] Translations: [OBSTRUCTIVE SLEEP APNEA] Onset: 09-11-2022 Chronic Spondylosis; intervertebral disc disorders; other back problems (20 sources) Intervertebral disc prolapse; Translations: [Other intervertebral disc displacement, thoracolumbar region] Onset: 09-29-2021 Resolved: 12-06-2021 Chronic Spondylosis; intervertebral disc disorders; other back problems (20 sources) Radiculopathy, lumbar region; Translations: [Chronic low back pain] Onset: 08-30-2021 Resolved: 08-30-2021 Episodic Unclassified (1 source) CHRN KIDNEY DISEASE [...] Translations: [UNSPECIFIED ABDOMINAL PAIN] Onset: 02-21-2022 Episodic Conditions associated with dizziness or vertigo (2 sources) Dizziness and giddiness; Translations: [Dizziness and giddiness] Onset: 03-14-2023 Episodic Deficiency and other anemia (4 sources) Anemia, [...] system] Onset: 03-27-2022 Episodic Residual codes; unclassified (3 sources) Localized edema; Translations: [LOCALIZED EDEMA] Onset: 09-11-2022 Episodic Residual codes; unclassified (1 source) Family [...] CARRIED OUT PT LEAVE] Onset: 02-16-2022 Episodic Syncope (2 sources) Syncope and collapse; Translations: [Syncope and collapse] Onset: 03-14-2023 Episodic Unclassified (1 source) CONTACT W/AND (SUSP) EXPOS COVID-19; Translations: [CONTACT W/AND (SUSP) EXPOS COVID-19] Onset: 12-21-2021 Results Test Name Value Interpretation Reference Range Facility 36on 09-20-2023 36 Patient's insurance denied a carotid duplex again. Is there anything else you'd like me to do? :( [facility] Office Visiton 09-11-2023 Follow-up visit [id number] Nithin Humphreys 1970 F Date Provider Department Center 09/11/2023 [id number] [facility] No family history on file Level of Service:96920 HI OFFICE/OUTPATIENT ESTABLISHED MOD MDM 30 MIN Normal [facility] Dipstick and Microscopicon 0 08-10-2023 Appearance (U) Clear Normal Clear [facility] Comment on above: Order Comment: Name Collection Type:: Clean-Voided Midstream Performed By: #### A DDONUAPLUS, PROCRERAT #### [address] Bacteria,Urine None Seen Normal None Seen [facility] Comment on above: Order Comment: Name Collection Type:: Clean-Voided Midstream Performed By: #### A DDONUAPLUS, PROCRERAT #### [place] [address] [place] Bilirubin,Urine Negative Normal Negative [facility] Comment on above: Order Comment: Name Collection Type:: Clean-Voided Midstream Performed By: #### A DDONUAPLUS, PROCRERAT #### [place] [address] [place] Color (U) Yellow Normal Yellow [facility] Comment on above: Order Comment: Name Collection Type:: Clean-Voided Midstream Performed By: #### A DDONUAPLUS, PROCRERAT #### [place] [address] [place] Glucose Ql (U) Normal Normal Normal [facility] Comment on above: Order Comment: Name Collection Type:: Clean-Voided Midstream Performed By: #### A DDONUAPLUS, PROCRERAT #### [place] [address] [place] Hyaline Casts,Urine None Seen Normal 0-8 [facility] Comment on above: Order Comment: Name Collection Type:: Clean-Voided Midstream Result Comment: PERF ORMED BY: [place] [address] PATHOLOGIST MANAGER TRAINING AND DEVELOPMENT ARIC BUTLER M.D. Performed By: #### A DDONUAPLUS, PROCRERAT #### [place] [address] [place] Ketones Ql (U) Negative Normal Negative [facility] Comment on above: Order Comment: Name Collection Type:: Clean-Voided Midstream Performed By: #### A DDONUAPLUS, PROCRERAT #### [address] Leukocyte esterase Test strip Ql (U) 2+ High Negative [facility] Comment on above: Order Comment: Name Collection Type:: Clean-Voided Midstream Performed By: #### A DDONUAPLUS, PROCRERAT #### [address] Nitrite,Urine Negative Normal Negative [facility] Comment on above: Order Comment: Name Collection Type:: Clean-Voided Midstream Performed By: #### A DDONUAPLUS, PROCRERAT #### [address] Occult Blood,Urine Negative Normal Negative [facility] Comment on above: Order Comment: Name Collection Type:: Clean-Voided Midstream Result Comment: PERF ORMED BY: [place] [address] PATHOLOGIST MANAGER TRAINING AND DEVELOPMENT ARIC BUTLER M.D. Performed By: #### A DDONUAPLUS, PROCRERAT #### [address] pH (U) 5.5 [pH] Normal 5.0-9.0 [facility] Comment on above: Order Comment: Name Collection Type:: Clean-Voided Midstream Performed By: #### A DDONUAPLUS, PROCRERAT #### [address] Protein,Urine Negative Normal Negative [facility] Comment on above: Order Comment: Name Collection Type:: Clean-Voided Midstream Performed By: #### A DDONUAPLUS, PROCRERAT #### [address] RBC,Urine None Seen Normal 0-4 [facility] Comment on above: Order Comment: Name Collection Type:: Clean-Voided Midstream Performed By: #### A DDONUAPLUS, PROCRERAT #### [address] Specificy [place],Urine 1.015 Normal 1.001-1.030 [facility] Comment on above: Order Comment: Name Collection Type:: Clean-Voided Midstream Performed By: #### A DDONUAPLUS, PROCRERAT #### [address] Squamous Epithelial Cell,Urine None Seen Normal 0-2 [facility] Comment on above: Order Comment: Name Collection Type:: Clean-Voided Midstream Performed By: #### A DDONUAPLUS, PROCRERAT #### [address] Urobilinogen,Urine Normal Normal Normal [facility] Comment on above: Order Comment: Name Collection Type:: Clean-Voided Midstream Performed By: #### A DDONUAPLUS, PROCRERAT #### [address] WBC,Urine 3-4 Normal 0-4 [facility] Comment on above: Order Comment: Name Collection Type:: Clean-Voided Midstream Performed By: #### A DDONUAPLUS, PROCRERAT #### [address] Ferritinon 08-10-2023 Ferritin [Mass/Vol] 62.9 ng/mL Normal 11.0-306.8 [facility] Comment on above: Performed By: #### R ENAL, GEENA, FE and TIBC, CBCNO, [id number], [id number], URIC, MG, PTH #### [address] Hemogram CBC Without Diffon 08-10-2023 Erythrocyte distribution width (RBC) [Ratio] 15.1 % Normal 11.9-15.3 [facility] Comment on above: Performed By: #### R ENAL, GEENA, FE and TIBC, CBCNO, [id number], [id number], URIC, MG, PTH #### [address] [place] [address] [place] Hematocrit (Bld) [Volume fraction] 35.0 % Normal 34.0-46.4 [facility] Comment on above: Performed By: #### R ENAL, GEENA, FE and TIBC, CBCNO, [id number], [id number], URIC, MG, PTH #### [address] Hemoglobin (Bld) [Mass/Vol] 11.5 g/dL Low 11.8-15.4 [facility] Comment on above: Performed By: #### R ENAL, GEENA, FE and TIBC, CBCNO, [id number], [id number], URIC, MG, PTH #### [address] MCH (RBC) [Entitic mass] 29.6 pg Normal 24.7-34.3 [facility] Comment on above: Performed By: #### R ENAL, GEENA, FE and TIBC, CBCNO, [id number], [id number], URIC, MG, PTH #### [address] MCV (RBC) [Entitic vol] 90.0 fL Normal 80-100 [facility] Comment on above: Performed By: #### R ENAL, GEENA, FE and TIBC, CBCNO, [id number], [id number], URIC, MG, PTH #### [address] Mean Corpuscular HGB Conc 32.9 g/dL Normal 32.0-35.0 [facility] Comment on above: Performed By: #### R ENAL, GEENA, FE and TIBC, CBCNO, [id number], [id number], URIC, MG, PTH #### [address] Platelet mean volume (Bld) [Entitic vol] 9.8 fL Normal 6.3-10.7 [facility] Comment on above: Result Comment: PERF ORMED BY: [address] [place] [address] PATHOLOGIST MANAGER TRAINING AND DEVELOPMENT ARIC BUTLER M.D. Performed By: #### R ENAL, GEENA, FE and TIBC, CBCNO, [id number], [id number], URIC, MG, PTH #### [address] Platelets (Bld) [#/Vol] 217 10*3/uL Normal 150-450 [facility] Comment on above: Performed By: #### R ENAL, GEENA, FE and TIBC, CBCNO, [id number], [id number], URIC, MG, PTH #### [address] RBC (Bld) [#/Vol] 3.89 10*6/uL Normal 3.60-5.00 [facility] Comment on above: Performed By: #### R ENAL, GEENA, FE and TIBC, CBCNO, [id number], [id number], URIC, MG, PTH #### [address] WBC (Bld) [#/Vol] 4.0 10*3/uL Normal 3.8-11.6 [facility] Comment on above: Performed By: #### R ENAL, GEENA, FE and TIBC, CBCNO, [id number], [id number], URIC, MG, PTH #### [address] Iron and TIBC Profileon 07-16 % Iron Saturation 15.6 % Low 20-50 [facility] Comment on above: Performed By: #### R ENAL, GEENA, FE and TIBC, CBCNO, [id number], [id number], URIC, MG, PTH #### [address] Iron [Mass/Vol] 75 ug/dL Normal 50-212 [facility] Comment on above: Performed By: #### R ENAL, GEENA, FE and TIBC, CBCNO, [id number], [id number], URIC, MG, PTH #### [address] Total Iron Binding Capacity 480 ug/dL High 255-450 [facility] Comment on above: Performed By: #### R ENAL, GEENA, FE and TIBC, CBCNO, [id number], [id number], URIC, MG, PTH #### [address] Transferrin [Mass/Vol] 343 mg/dL Normal 203-362 [facility] Comment on above: Performed By: #### R ENAL, GEENA, FE and TIBC, CBCNO, [id number], [id number], URIC, MG, PTH #### [address] Magnesiumon 08-10-2023 Magnesium [Mass/Vol] 1.9 mg/dL Normal 1.9-2.7 [facility] Comment on above: Performed By: #### R ENAL, GEENA, FE and TIBC, CBCNO, [id number], [id number], URIC, MG, PTH #### [address] Parathyroid Hormone Intacton 08-10-2023 Parathyroid Hormone Intact 38.7 pg/mL Normal 12-88 [facility] Comment on above: Result Comment: PERF ORMED BY: [place] [address] PATHOLOGIST MANAGER TRAINING AND DEVELOPMENT ARIC BUTLER M.D. Performed By: #### R ENAL, GEENA, FE and TIBC, CBCNO, [id number], [id number], URIC, MG, PTH #### [address] Protein Creat Ratio Ur Rando mon 08-10-2023 Creatinine, Urine (Random) 92.0 mg/dL Normal [facility] Comment on above: Result Comment: No r eference range established Performed By: #### R ENAL, GEENA, FE and TIBC, CBCNO, [id number], [id number], URIC, MG, PTH #### [address] Protein, Urine (Random) < 4 Normal 0-9 [facility] Comment on above: Performed By: #### R ENAL, GEENA, FE and TIBC, CBCNO, [id number], [id number], URIC, MG, PTH #### [address] Urine Protein/Creatinine Ratio Not performed Normal 0-200 [facility] Comment on above: Result Comment: PERF ORMED BY: [place] [address] PATHOLOGIST MANAGER TRAINING AND DEVELOPMENT ARIC BUTLER M.D. Performed By: #### R ENAL, GEENA, FE and TIBC, CBCNO, [id number], [id number], URIC, MG, PTH #### [address] Renal Function Panelon 08-09 Albumin [Mass/Vol] 4.0 g/dL Normal 3.5-5.7 [facility] Comment on above: Performed By: #### R ENAL, GEENA, FE and TIBC, CBCNO, [id number], [id number], URIC, MG, PTH #### [address] Anion gap [Moles/Vol] 11.7 mmol/L Normal 6.0-15.0 [facility] Comment on above: Performed By: #### R ENAL, GEENA, FE and TIBC, CBCNO, [id number], [id number], URIC, MG, PTH #### [address] Calcium [Mass/Vol] 9.3 mg/dL Normal 8.6-10.3 [facility] Comment on above: Performed By: #### R ENAL, GEENA, FE and TIBC, CBCNO, [id number], [id number], URIC, MG, PTH #### [address] Chloride [Moles/Vol] 110 mmol/L High 98-107 [facility] Comment on above: Performed By: #### R ENAL, GEENA, FE and TIBC, CBCNO, [id number], [id number], URIC, MG, PTH #### [facility] [address] CO2 [Moles/Vol] 24.8 mmol/L Normal 21.0-31.0 [facility] Comment on above: Performed By: #### R ENAL, GEENA, FE and TIBC, CBCNO, [id number], [id number], URIC, MG, PTH #### [address] Creatinine [Mass/Vol] 1.59 mg/dL High 0.60-1.20 [facility] Comment on above: Performed By: #### R ENAL, GEENA, FE and TIBC, CBCNO, [id number], [id number], URIC, MG, PTH #### [address] GFR/1.73 sq M.predicted MDRD (S/P/Bld) [Vol rate/Area] 38.856 mL/min/{1.73_m2} Normal [facility] Comment on above: Performed By: #### R ENAL, GEENA, FE and TIBC, CBCNO, [id number], [id number], URIC, MG, PTH #### [address] Glucose [Mass/Vol] 94 mg/dL Normal 70-100 [facility] Comment on above: Result Comment: [facility] Glucose Reference Range is dependent on time and content of last meal. Glucose of more than 200 mg/dL in a nonstressed, ambulatory subject supports the diagnosis of Diabetes Mellitus. ADA recommended reference range Performed By: #### R ENAL, GEENA, FE and TIBC, CBCNO, [id number], [id number], URIC, MG, PTH #### [address] Phosphate [Mass/Vol] 3.7 mg/dL Normal 2.5-4.5 [facility] Comment on above: Performed By: #### R ENAL, GEENA, FE and TIBC, CBCNO, [id number], [id number], URIC, MG, PTH #### [address] Potassium [Moles/Vol] 4.5 mmol/L Normal 3.5-5.1 [facility] Comment on above: Performed By: #### R ENAL, GEENA, FE and TIBC, CBCNO, [id number], [id number], URIC, MG, PTH #### [address] Sodium [Moles/Vol] 142 mmol/L Normal 136-145 [facility] Comment on above: Performed By: #### R ENAL, GEENA, FE and TIBC, CBCNO, [id number], [id number], URIC, MG, PTH #### [address] Urea nitrogen [Mass/Vol] 32 mg/dL High 7-25 [facility] Comment on above: Performed By: #### R ENAL, GEENA, FE and TIBC, CBCNO, [id number], [id number], URIC, MG, PTH #### [address] Uric Acidon 08-10-2023 Urate [Mass/Vol] 8.6 mg/dL High 2.3-6.6 [facility] Comment on above: Performed By: #### R ENAL, GEENA, FE and TIBC, CBCNO, [id number], [id number], URIC, MG, PTH #### [address] Vit. B12/Folate Profileon Cobalamin (Vitamin B12) [Mass/Vol] 164 pg/mL Low 180-914 [facility] Comment on above: Performed By: #### R ENAL, GEENA, FE and TIBC, CBCNO, [id number], [id number], URIC, MG, PTH #### [facility] [address] [place] [id number] [facility] Folate 15.7 ng/mL Normal >5.9 [facility] Comment on above: Result Comment: Maria te reference range: >5.9 ng/ml The WHO technical consultation on folate and vitamin b12 deficiencies has determined that folate concentrations less than 4 ng/ml are considered deficient. Performed By: #### R ENAL, GEENA, FE and TIBC, CBCNO, [id number], [id number], URIC, MG, PTH #### [facility] [address] [place] [id number] [facility] Vitamin D 25 Hydroxy Totalon 08-10-2023 Vitamin D 25 Hydroxy Total 22.4 ng/mL Low 30-100 [facility] Comment on above: Result Comment: AWAIS MIN D STATUS 25(OH)VITAMIN D RANGE (ng/mL) Deficient <20 Insufficient 20 to <30 Sufficient 30 to 100 Reference: Karen MF,Nicole SCOTT, Ed LI, et al. Evaluation,treatment, and prevention of vitamin D deficiency; an Endocrine Society clinical practice guideline. JCEM. 2010; 96(7):1911-30. PERFORMED BY: [place] [address] PATHOLOGIST MANAGER TRAINING AND DEVELOPMENT ARIC BUTLER M.D. Performed By: #### R ENAL, GEENA, FE and TIBC, CBCNO, [id number], [id number], URIC, MG, PTH #### [place] [id number] [facility] Valproic Acid (in house)on 0 06-19-2023 Valproic Acid (in house) 14.5 ug/mL Low 50.0-100.0 [facility] Comment on above: Result Comment: Last dose: - PERFORMED BY: [place] [id number] PATHOLOGIST MANAGER TRAINING AND DEVELOPMENT ARIC BUTLER M.D. Performed By: #### R ENAL, GEENA, FE and TIBC, CBCNO, [id number], [id number], URIC, MG, PTH #### [facility] [address] [place] [phone] [facility] Alanine aminotransferase [En zymatic activity/volume] in Serum or PlasmaOrdered By: Halle Mac on 05-17-2023 ALT [Catalytic activity/Vol] 16 U/L 7-52 [facility] Albumin [Mass/volume] in Ser um or Plasma by Bromocresol green (BCG) dye binding methoOrdered By: Halle Mac on 05-17-2023 Albumin BCG dye [Mass/Vol] 4.3 g/dL 3.5-5.7 [facility] Alkaline phosphatase [Enzyma tic activity/volume] in Serum or PlasmaOrdered By: Halle Mac on 05-17-2023 ALP [Catalytic activity/Vol] 61 U/L 34-104 [facility] Aspartate aminotransferase [ Enzymatic activity/volume] in Serum or PlasmaOrdered By: Halle Mac on 05-17-2023 AST [Catalytic activity/Vol] 23 U/L 13-39 [facility] Automated erythrocytes count in urine sediment (number/area)Ordered By: Halle Mac on 05-17-2023 RBC Auto (Urine sed) [#/Area] 3-4 [HPF] 0-4 [facility] Automated leukocytes count i n urine sediment (number/area)Ordered By: Halle Mac on 05-17-2023 WBC Auto (Urine sed) [#/Area] 10-19 [HPF] 0-4 [facility] Bilirubin Test strip Ql (U)O rdered By: Halle Mac on 05-17-2023 Bilirubin Ql (U) 2+ Negative [facility] Bilirubin.total [Mass/volume ] in Serum or PlasmaOrdered By: Halle Mac on 05-17-2023 Bilirubin [Mass/Vol] 0.5 mg/dL 0.3-1.0 [facility] Calcium [Mass/volume] in Ser um or PlasmaOrdered By: Halle Mac on 05-17-2023 Calcium [Mass/Vol] 9.3 mg/dL 8.6-10.3 [facility] Carbon dioxide, total [Moles /volume] in Serum or PlasmaOrdered By: Halle Mac on 05-17-2023 CO2 [Moles/Vol] 28.0 mmol/L 21.0-31.0 [facility] Casts typing in urine sedime nt by light microscopyOrdered By: Halle Mac on 05-17-2023 Casts LM Nom (Urine sed) None seen [LPF] None Seen [facility] Chloride [Moles/volume] in S brunilda or PlasmaOrdered By: Halle Mac on 05-17-2023 Chloride [Moles/Vol] 107 mmol/L 98-107 [facility] Color Auto (U)Ordered By: Donald Mac on 05-17-2023 Color (U) Dark yellow Yellow [facility] Comprehensive Metabolic Pane mikayla 05-17-2023 Albumin [Mass/Vol] 4.3 g/dL Normal 3.5-5.7 [facility] Comment on above: Order Comment: Reaso n for Exam Chronic kidney disease, stage 3b;Hypertensive nephropathy;Di Performed By: #### R ENAL, GEENA, FE and TIBC, CBCNO, [id number], [id number], URIC, MG, PTH #### [facility] [address] Albumin/Globulin [Mass ratio] 1.9 {ratio} Normal [facility] Comment on above: Order Comment: Reaso n for Exam Chronic kidney disease, stage 3b;Hypertensive nephropathy;Di Performed By: #### R ENAL, GEENA, FE and TIBC, CBCNO, [id number], [id number], URIC, MG, PTH #### [facility] [address] [place] [phone] [facility] ALP [Catalytic activity/Vol] 61 U/L Normal 34-104 [facility] Comment on above: Order Comment: Reaso n for Exam Chronic kidney disease, stage 3b;Hypertensive nephropathy;Di Performed By: #### R ENAL, GEENA, FE and TIBC, CBCNO, [id number], [id number], URIC, MG, PTH #### [facility] [address] [place] [phone] [place] ALT [Catalytic activity/Vol] 16 U/L Normal 7-52 [facility] Comment on above: Order Comment: Reaso n for Exam Chronic kidney disease, stage 3b;Hypertensive nephropathy;Di Performed By: #### R ENAL, GEENA, FE and TIBC, CBCNO, [id number], [id number], URIC, MG, PTH #### [address] Anion gap [Moles/Vol] 10.8 mmol/L Normal 6.0-15.0 e [facility] Comment on above: Order Comment: Reaso n for Exam Chronic kidney disease, stage 3b;Hypertensive nephropathy;Di Performed By: #### R ENAL, GEENA, FE and TIBC, CBCNO, [id number], [id number], URIC, MG, PTH #### [address] AST [Catalytic activity/Vol] 23 U/L Normal 13-39 [facility] Comment on above: Order Comment: Reaso n for Exam Chronic kidney disease, stage 3b;Hypertensive nephropathy;Di Performed By: #### R ENAL, GEENA, FE and TIBC, CBCNO, [id number], [id number], URIC, MG, PTH #### [address] Bilirubin [Mass/Vol] 0.5 mg/dL Normal 0.3-1.0 [facility] Comment on above: Order Comment: Reaso n for Exam Chronic kidney disease, stage 3b;Hypertensive nephropathy;Di Performed By: #### R ENAL, GEENA, FE and TIBC, CBCNO, [id number], [id number], URIC, MG, PTH #### [address] Calcium [Mass/Vol] 9.3 mg/dL Normal 8.6-10.3 [facility] Comment on above: Order Comment: Reaso n for Exam Chronic kidney disease, stage 3b;Hypertensive nephropathy;Di Performed By: #### R ENAL, GEENA, FE and TIBC, CBCNO, [id number], [id number], URIC, MG, PTH #### [address] Chloride [Moles/Vol] 107 mmol/L Normal 98-107 [facility] Comment on above: Order Comment: Reaso n for Exam Chronic kidney disease, stage 3b;Hypertensive nephropathy;Di Performed By: #### R ENAL, GEENA, FE and TIBC, CBCNO, [id number], [id number], URIC, MG, PTH #### [address] CO2 [Moles/Vol] 28.0 mmol/L Normal 21.0-31.0 [facility] Comment on above: Order Comment: Reaso n for Exam Chronic kidney disease, stage 3b;Hypertensive nephropathy;Di Performed By: #### R ENAL, GEENA, FE and TIBC, CBCNO, [id number], [id number], URIC, MG, PTH #### [address] Creatinine [Mass/Vol] 1.52 mg/dL High 0.60-1.20 [facility] Comment on above: Order Comment: Reaso n for Exam Chronic kidney disease, stage 3b;Hypertensive nephropathy;Di Performed By: #### R ENAL, GEENA, FE and TIBC, CBCNO, [id number], [id number], URIC, MG, PTH #### [address] GFR/1.73 sq M.predicted MDRD (S/P/Bld) [Vol rate/Area] 41.013 mL/min/{1.73_m2} Normal [facility] Comment on above: Order Comment: Reaso n for Exam Chronic kidney disease, stage 3b;Hypertensive nephropathy;Di Performed By: #### R ENAL, GEENA, FE and TIBC, CBCNO, [id number], [id number], URIC, MG, PTH #### [address] Globulin (S) [Mass/Vol] 2.3 g/dL Normal T he [facility] Comment on above: Order Comment: Reaso n for Exam Chronic kidney disease, stage 3b;Hypertensive nephropathy;Di Performed By: #### R ENAL, GEENA, FE and TIBC, CBCNO, [id number], [id number], URIC, MG, PTH #### [address] Glucose [Mass/Vol] 123 mg/dL High 70-100 [facility] Comment on above: Order Comment: Reaso n for Exam Chronic kidney disease, stage 3b;Hypertensive nephropathy;Di Result Comment: [facility] Glucose Reference Range is dependent on time and content of last meal. Glucose of more than 200 mg/dL in a nonstressed, ambulatory subject supports the diagnosis of Diabetes Mellitus. ADA recommended reference range Performed By: #### R ENAL, GEENA, FE and TIBC, CBCNO, [id number], [id number], URIC, MG, PTH #### [address] Potassium [Moles/Vol] 3.8 mmol/L Normal 3.5-5.1 [facility] Comment on above: Order Comment: Reaso n for Exam Chronic kidney disease, stage 3b;Hypertensive nephropathy;Di Performed By: #### R ENAL, GEENA, FE and TIBC, CBCNO, [id number], [id number], URIC, MG, PTH #### [address] Protein [Mass/Vol] 6.6 g/dL Normal 6.4-8.9 [facility] Comment on above: Order Comment: Reaso n for Exam Chronic kidney disease, stage 3b;Hypertensive nephropathy;Di Performed By: #### R ENAL, GEENA, FE and TIBC, CBCNO, [id number], [id number], URIC, MG, PTH #### [address] Sodium [Moles/Vol] 142 mmol/L Normal 136-145 [facility] Comment on above: Order Comment: Reaso n for Exam Chronic kidney disease, stage 3b;Hypertensive nephropathy;Di Performed By: #### R ENAL, GEENA, FE and TIBC, CBCNO, [id number], [id number], URIC, MG, PTH #### [address] Urea nitrogen [Mass/Vol] 26 mg/dL High 7-25 [facility] Comment on above: Order Comment: Reaso n for Exam Chronic kidney disease, stage 3b;Hypertensive nephropathy;Di Performed By: #### R ENAL, GEENA, FE and TIBC, CBCNO, [id number], [id number], URIC, MG, PTH #### [facility] [address] Creatinine [Mass/volume] in Serum or PlasmaOrdered By: Halle Mac on 05-17-2023 Creatinine [Mass/Vol] 1.52 mg/dL 0.60-1.20 [facility] Creatinine [Mass/volume] in UrineOrdered By: Halle Mac on 05-17-2023 Creatinine (U) [Mass/Vol] mg/dL 11.0-20.0 [facility] Dipstick and Microscopicon 0 05-17-2023 Appearance (U) Cloudy Critically abnormal Clear [facility] Comment on above: Order Comment: Reaso n for Exam Chronic kidney disease, stage 3b;Hypertensive nephropathy;Di Name Collection Type:: Clean-Voided Midstream Performed By: #### R ENAL, GEENA, FE and TIBC, CBCNO, [id number], [id number], URIC, MG, PTH #### [facility] [address] Bacteria,Urine None Seen Normal None Seen [facility] Comment on above: Order Comment: Reaso n for Exam Chronic kidney disease, stage 3b;Hypertensive nephropathy;Di Name Collection Type:: Clean-Voided Midstream Performed By: #### R ENAL, GEENA, FE and TIBC, CBCNO, [id number], [id number], URIC, MG, PTH #### [facility] [address] Bilirubin,Urine 2+ High Negative [facility] Comment on above: Order Comment: Reaso n for Exam Chronic kidney disease, stage 3b;Hypertensive nephropathy;Di Name Collection Type:: Clean-Voided Midstream Performed By: #### R ENAL, GEENA, FE and TIBC, CBCNO, [id number], [id number], URIC, MG, PTH #### [facility] [address] [place] [address] [place] Color (U) Dark Yellow Critically abnormal Yellow [facility] Comment on above: Order Comment: Reaso n for Exam Chronic kidney disease, stage 3b;Hypertensive nephropathy;Di Name Collection Type:: Clean-Voided Midstream Performed By: #### R ENAL, GEENA, FE and TIBC, CBCNO, [id number], [id number], URIC, MG, PTH #### [facility] [address] Fine Granular Casts,Urine 5-9 High 0-1 [facility] Comment on above: Order Comment: Reaso n for Exam Chronic kidney disease, stage 3b;Hypertensive nephropathy;Di Name Collection Type:: Clean-Voided Midstream Performed By: #### R ENAL, GEENA, FE and TIBC, CBCNO, [id number], [id number], URIC, MG, PTH #### [facility] [address] Glucose Ql (U) Normal Normal Normal [facility] Comment on above: Order Comment: Reaso n for Exam Chronic kidney disease, stage 3b;Hypertensive nephropathy;Di Name Collection Type:: Clean-Voided Midstream Performed By: #### R ENAL, GEENA, FE and TIBC, CBCNO, [id number], [id number], URIC, MG, PTH #### [address] Hyaline Casts,Urine None Seen Normal 0-8 [facility] Comment on above: Order Comment: Reaso n for Exam Chronic kidney disease, stage 3b;Hypertensive nephropathy;Di Name Collection Type:: Clean-Voided Midstream Performed By: #### R ENAL, GEENA, FE and TIBC, CBCNO, [id number], [id number], URIC, MG, PTH #### [address] Ketones Ql (U) 1+ High Negative [facility] Comment on above: Order Comment: Reaso n for Exam Chronic kidney disease, stage 3b;Hypertensive nephropathy;Di Name Collection Type:: Clean-Voided Midstream Performed By: #### R ENAL, GEENA, FE and TIBC, CBCNO, [id number], [id number], URIC, MG, PTH #### [address] Leukocyte esterase Test strip Ql (U) 1+ High Negative [facility] Comment on above: Order Comment: Reaso n for Exam Chronic kidney disease, stage 3b;Hypertensive nephropathy;Di Name Collection Type:: Clean-Voided Midstream Performed By: #### R ENAL, GEENA, FE and TIBC, CBCNO, [id number], [id number], URIC, MG, PTH #### [address] Mucus,Urine 3+ Critically abnormal [facility] Comment on above: Order Comment: Reaso n for Exam Chronic kidney disease, stage 3b;Hypertensive nephropathy;Di Name Collection Type:: Clean-Voided Midstream Performed By: #### R ENAL, GEENA, FE and TIBC, CBCNO, [id number], [id number], URIC, MG, PTH #### [address] Nitrite,Urine Negative Normal Negative [facility] Comment on above: Order Comment: Reaso n for Exam Chronic kidney disease, stage 3b;Hypertensive nephropathy;Di Name Collection Type:: Clean-Voided Midstream Performed By: #### R ENAL, GEENA, FE and TIBC, CBCNO, [id number], [id number], URIC, MG, PTH #### [address] Occult Blood,Urine Negative Normal Negative [facility] Comment on above: Order Comment: Reaso n for Exam Chronic kidney disease, stage 3b;Hypertensive nephropathy;Di Name Collection Type:: Clean-Voided Midstream Result Comment: PERF ORMED BY: [place] [address] PATHOLOGIST MANAGER TRAINING AND DEVELOPMENT ARIC BUTLER M.D. Performed By: #### R ENAL, GEENA, FE and TIBC, CBCNO, [id number], [id number], URIC, MG, PTH #### [address] Other Casts,Urine None Seen Normal None Seen [facility] Comment on above: Order Comment: Reaso n for Exam Chronic kidney disease, stage 3b;Hypertensive nephropathy;Di Name Collection Type:: Clean-Voided Midstream Performed By: #### R ENAL, GEENA, FE and TIBC, CBCNO, [id number], [id number], URIC, MG, PTH #### [address] pH (U) 5.0 [pH] Normal 5.0-9.0 [facility] [facility] Comment on above: Order Comment: Reaso n for Exam Chronic kidney disease, stage 3b;Hypertensive nephropathy;Di Name Collection Type:: Clean-Voided Midstream Performed By: #### R ENAL, GEENA, FE and TIBC, CBCNO, [id number], [id number], URIC, MG, PTH #### [address] Protein (U) [Mass/Vol] 30 mg/dL High Negative Th e [facility] Comment on above: Order Comment: Reaso n for Exam Chronic kidney disease, stage 3b;Hypertensive nephropathy;Di Name Collection Type:: Clean-Voided Midstream Performed By: #### R ENAL, GEENA, FE and TIBC, CBCNO, [id number], [id number], URIC, MG, PTH #### [address] RBC,Urine 3-4 Normal 0-4 [facility] Comment on above: Order Comment: Reaso n for Exam Chronic kidney disease, stage 3b;Hypertensive nephropathy;Di Name Collection Type:: Clean-Voided Midstream Performed By: #### R ENAL, GEENA, FE and TIBC, CBCNO, [id number], [id number], URIC, MG, PTH #### [address] Specificy [place],Urine 1.025 Normal 1.001-1.030 [facility] Comment on above: Order Comment: Reaso n for Exam Chronic kidney disease, stage 3b;Hypertensive nephropathy;Di Name Collection Type:: Clean-Voided Midstream Performed By: #### R ENAL, GEENA, FE and TIBC, CBCNO, [id number], [id number], URIC, MG, PTH #### [address] Squamous Epithelial Cell,Urine 3-4 High 0-2 [facility] Comment on above: Order Comment: Reaso n for Exam Chronic kidney disease, stage 3b;Hypertensive nephropathy;Di Name Collection Type:: Clean-Voided Midstream Performed By: #### R ENAL, GEENA, FE and TIBC, CBCNO, [id number], [id number], URIC, MG, PTH #### [address] Urobilinogen,Urine Normal Normal Normal [facility] Comment on above: Order Comment: Reaso n for Exam Chronic kidney disease, stage 3b;Hypertensive nephropathy;Di Name Collection Type:: Clean-Voided Midstream Performed By: #### R ENAL, GEENA, FE and TIBC, CBCNO, [id number], [id number], URIC, MG, PTH #### [address] WBC,Urine 10-19 High 0-4 [facility] Comment on above: Order Comment: Reaso n for Exam Chronic kidney disease, stage 3b;Hypertensive nephropathy;Di Name Collection Type:: Clean-Voided Midstream Performed By: #### R ENAL, GEENA, FE and TIBC, CBCNO, [id number], [id number], URIC, MG, PTH #### [address] Yeast,Urine None Seen Normal None Seen [facility] Comment on above: Order Comment: Reaso n for Exam Chronic kidney disease, stage 3b;Hypertensive nephropathy;Di Name Collection Type:: Clean-Voided Midstream Result Comment: PERF ORMED BY: [place] [address] PATHOLOGIST MANAGER TRAINING AND DEVELOPMENT ARIC BUTLER M.D. Performed By: #### R ENAL, GEENA, FE and TIBC, CBCNO, [id number], [id number], URIC, MG, PTH #### [facility] [address] Erythrocyte distribution wid th Auto (RBC) [Ratio]Ordered By: Halle Mac on 05-17-2023 Erythrocyte distribution width (RBC) [Ratio] 13.4 % 11.9-15.3 [facility] Ferritinon 05-17-2023 Ferritin [Mass/Vol] 51.8 ng/mL Normal 11.0-306.8 [facility] Comment on above: Order Comment: Reaso n for Exam Chronic kidney disease, stage 3b;Hypertensive nephropathy;Di Performed By: #### R ENAL, GEENA, FE and TIBC, CBCNO, [id number], [id number], URIC, MG, PTH #### [facility] [address] Ferritin [Mass/volume] in Se rum or PlasmaOrdered By: Halle Mac on 05-17-2023 Ferritin [Mass/Vol] 51.8 ng/mL 11.0-306.8 [facility] Fine granular cast count in urine sediment by microscopy (number/low power field )Ordered By: Halle Mac on 05-17-2023 Fine Granular Casts LM.LPF (Urine sed) [#/Area] 5-9 [LPF] 0-1 [facility] Globulin Calc (S) [Mass/Vol] Ordered By: Halle Mac on 05-17-2023 Globulin (S) [Mass/Vol] 2.3 g/dL F [facility] Glucose [Mass/volume] in Ser um or PlasmaOrdered By: Halle Mac on 05-17-2023 Glucose [Mass/Vol] 123 mg/dL 70-100 [facility] Comment on above: ADA recommended refe rence rangeRandom Glucose Reference Range is dependent on time and content of last meal. Glucose of more than 200 mg/dL in a nonstressed, ambulatory subject supports the diagnosis of Diabetes Mellitus. Hematocrit Auto (Bld) [Volum e fraction]Ordered By: Halle Mac on 05-17-2023 Hematocrit (Bld) [Volume fraction] 36.1 % 34.0-46.4 [facility] Hemoglobin [Mass/volume] in BloodOrdered By: Halle Mac on 05-17-2023 Hemoglobin (Bld) [Mass/Vol] 11.8 g/dL 11.8-15.4 [facility] Hemogram CBC Without Diffon 05-17-2023 Erythrocyte distribution width (RBC) [Ratio] 13.4 % Normal 11.9-15.3 [facility] Comment on above: Order Comment: Reaso n for Exam Chronic kidney disease, stage 3b;Hypertensive nephropathy;Di Performed By: #### R ENAL, GEENA, FE and TIBC, CBCNO, [id number], [id number], URIC, MG, PTH #### [address] Hematocrit (Bld) [Volume fraction] 36.1 % Normal 34.0-46.4 [facility] Comment on above: Order Comment: Reaso n for Exam Chronic kidney disease, stage 3b;Hypertensive nephropathy;Di Performed By: #### R ENAL, GEENA, FE and TIBC, CBCNO, [id number], [id number], URIC, MG, PTH #### [facility] [address] [place] [address] Hemoglobin (Bld) [Mass/Vol] 11.8 g/dL Normal 11.8-15.4 [facility] Comment on above: Order Comment: Reaso n for Exam Chronic kidney disease, stage 3b;Hypertensive nephropathy;Di Performed By: #### R ENAL, GEENA, FE and TIBC, CBCNO, [id number], [id number], URIC, MG, PTH #### [facility] [address] [place] [address] MCH (RBC) [Entitic mass] 29.4 pg Normal 24.7-34.3 [facility] Comment on above: Order Comment: Reaso n for Exam Chronic kidney disease, stage 3b;Hypertensive nephropathy;Di Performed By: #### R ENAL, GEENA, FE and TIBC, CBCNO, [id number], [id number], URIC, MG, PTH #### [address] MCV (RBC) [Entitic vol] 89.4 fL Normal 80-100 T he [facility] Comment on above: Order Comment: Reaso n for Exam Chronic kidney disease, stage 3b;Hypertensive nephropathy;Di Performed By: #### R ENAL, GEENA, FE and TIBC, CBCNO, [id number], [id number], URIC, MG, PTH #### [address] Mean Corpuscular HGB Conc 32.8 g/dL Normal 32.0-35.0 [facility] Comment on above: Order Comment: Reaso n for Exam Chronic kidney disease, stage 3b;Hypertensive nephropathy;Di Performed By: #### R ENAL, GEENA, FE and TIBC, CBCNO, [id number], [id number], URIC, MG, PTH #### [address] Platelet mean volume (Bld) [Entitic vol] 9.5 fL Normal 6.3-10.7 [facility] Comment on above: Order Comment: Reaso n for Exam Chronic kidney disease, stage 3b;Hypertensive nephropathy;Di Result Comment: PERF ORMED BY: [place] [address] PATHOLOGIST MANAGER TRAINING AND DEVELOPMENT ARIC BUTLER M.D. Performed By: #### R ENAL, GEENA, FE and TIBC, CBCNO, [id number], [id number], URIC, MG, PTH #### [address] Platelets (Bld) [#/Vol] 233 10*3/uL Normal 150-450 [facility] Comment on above: Order Comment: Reaso n for Exam Chronic kidney disease, stage 3b;Hypertensive nephropathy;Di Performed By: #### R ENAL, GEENA, FE and TIBC, CBCNO, [id number], [id number], URIC, MG, PTH #### [address] RBC (Bld) [#/Vol] 4.03 10*6/uL Normal 3.60-5.00 [facility] Comment on above: Order Comment: Reaso n for Exam Chronic kidney disease, stage 3b;Hypertensive nephropathy;Di Performed By: #### R ENAL, GEENA, FE and TIBC, CBCNO, [id number], [id number], URIC, MG, PTH #### [facility] [address] WBC (Bld) [#/Vol] 5.5 10*3/uL Normal 3.8-11.6 [facility] Comment on above: Order Comment: Reaso n for Exam Chronic kidney disease, stage 3b;Hypertensive nephropathy;Di Performed By: #### R ENAL, GEENA, FE and TIBC, CBCNO, [id number], [id number], URIC, MG, PTH #### [address] Iron [Mass/volume] in Serum or PlasmaOrdered By: Halle Mac on 05-17-2023 Iron [Mass/Vol] 57 ug/dL 50-212 [facility] Iron and TIBC Profileon % Iron Saturation 10.6 % Low 20-50 [facility] Comment on above: Order Comment: Reaso n for Exam Chronic kidney disease, stage 3b;Hypertensive nephropathy;Di Performed By: #### R ENAL, GEENA, FE and TIBC, CBCNO, [id number], [id number], URIC, MG, PTH #### [address] Iron [Mass/Vol] 57 ug/dL Normal 50-212 [facility] Comment on above: Order Comment: Reaso n for Exam Chronic kidney disease, stage 3b;Hypertensive nephropathy;Di Performed By: #### R ENAL, GEENA, FE and TIBC, CBCNO, [id number], [id number], URIC, MG, PTH #### [address] Total Iron Binding Capacity 538 ug/dL High 255-450 [facility] Comment on above: Order Comment: Reaso n for Exam Chronic kidney disease, stage 3b;Hypertensive nephropathy;Di Performed By: #### R ENAL, GEENA, FE and TIBC, CBCNO, [id number], [id number], URIC, MG, PTH #### [facility] [address] [place] [address] [place] Transferrin [Mass/Vol] 384 mg/dL High 203-362 Th e [facility] Comment on above: Order Comment: Reaso n for Exam Chronic kidney disease, stage 3b;Hypertensive nephropathy;Di Performed By: #### R ENAL, GEENA, FE and TIBC, CBCNO, [id number], [id number], URIC, MG, PTH #### [facility] [address] [place] [id number] [facility] Iron binding capacity [Mass/ volume] in Serum or PlasmaOrdered By: Halle Mac on 05-17-2023 Iron binding capacity [Mass/Vol] 538 ug/dL 255-450 [facility] Iron saturation [Mass Fracti on] in Serum or PlasmaOrdered By: Halle Mac on 05-17-2023 Iron saturation [Mass fraction] 10.6 % 20-50 [facility] Ketones Auto test strip (U) [Mass/Vol]Ordered By: Halle Mac on 05-17-2023 Ketones (U) [Mass/Vol] 1+ Negative Fi [facility] - UrinalysisOrder ed By: Halle Mac on 05-17-2023 Hyaline casts LM Ql (Urine sed) None seen [LPF] 0-8 [facility] Leukocytes [#/volume] correc joaquin for nucleated erythrocytes in Blood by Automated counOrdered By: Halle Mac on 05-17-2023 WBC corrected for nucl RBC Auto (Bld) [#/Vol] 5.5 10*3/uL 3.8-11.6 [facility] MCH Auto (RBC) [Entitic mass ]Ordered By: Halle Mac on 05-17-2023 MCH (RBC) [Entitic mass] 29.4 pg 24.7-34.3 [facility] MCHC Auto (RBC) [Mass/Vol]Or dered By: Halle Mac on 05-17-2023 MCHC (RBC) [Mass/Vol] 32.8 g/dL 32.0-35.0 [facility] MCV Auto (RBC) [Entitic vol] Ordered By: Halle Mac on 05-17-2023 MCV (RBC) [Entitic vol] 89.4 fL 80-100 F [facility] Magnesiumon 05-17-2023 Magnesium [Mass/Vol] 2.0 mg/dL Normal 1.9-2.7 [facility] Comment on above: Order Comment: Reaso n for Exam Chronic kidney disease, stage 3b;Hypertensive nephropathy;Di Performed By: #### R ENAL, GEENA, FE and TIBC, CBCNO, [id number], [id number], URIC, MG, PTH #### [address] Magnesium [Mass/volume] in S brunilda or PlasmaOrdered By: Halle Mac on 05-17-2023 Magnesium [Mass/Vol] 2.0 mg/dL 1.9-2.7 [facility] Mucus LM Ql (Urine sed)Order ed By: Halle Mac on 05-17-2023 Mucus Ql (Urine sed) 3+ [LPF] [facility] Nitrite Test strip Ql (U)Ord ered By: Halle Mac on 05-17-2023 Nitrite Ql (U) Negative Negative [facility] No Panel InformationOrdered By: Halle Mac on 05-17-2023 Estimated GFR (CKD-EPI) 41.013 mL/Min [facility] Creatinine Clearance (Chem N/A [facility] Parathyrin.intact [Mass/volu me] in Serum or PlasmaOrdered By: Halle Mac on 05-17-2023 Parathyrin.intact [Mass/Vol] 36.3 pg/mL [facility] Parathyroid Hormone Intacton 05-17-2023 Parathyroid Hormone Intact 36.3 pg/mL Normal [facility] Comment on above: Order Comment: Reaso n for Exam Chronic kidney disease, stage 3b;Hypertensive nephropathy;Di Result Comment: PERF ORMED BY: [place] [address] PATHOLOGIST MANAGER TRAINING AND DEVELOPMENT ARIC BUTLER M.D. Performed By: #### R ENAL, GEENA, FE and TIBC, CBCNO, [id number], [id number], URIC, MG, PTH #### [address] Phosphate [Mass/volume] in S brunilda or PlasmaOrdered By: Halle Mac on 05-17-2023 Phosphate [Mass/Vol] 4.4 mg/dL 2.5-4.5 [facility] Phosphoruson 05-17-2023 Phosphate [Mass/Vol] 4.4 mg/dL Normal 2.5-4.5 [facility] Comment on above: Order Comment: Reaso n for Exam Chronic kidney disease, stage 3b;Hypertensive nephropathy;Di Performed By: #### R ENAL, GEENA, FE and TIBC, CBCNO, [id number], [id number], URIC, MG, PTH #### [address] Platelet mean volume Auto (B ld) [Entitic vol]Ordered By: Halle Mac on 05-17-2023 Platelet mean volume (Bld) [Entitic vol] 9.5 fL 6.3-10.7 [facility] Platelets Auto (Bld) [#/Vol] Ordered By: Halle Mac on 05-17-2023 Platelets (Bld) [#/Vol] 233 10*3/uL 150-450 [facility] Potassium [Moles/volume] in Serum or PlasmaOrdered By: Halle Mac on 05-17-2023 Potassium [Moles/Vol] 3.8 mmol/L 3.5-5.1 [facility] Protein Auto test strip (U) [Mass/Vol]Ordered By: Halle Mac on 05-17-2023 Protein (U) [Mass/Vol] 30 mg/dL Negative [facility] Protein Creat Ratio Ur Rando mon 05-17-2023 Creatinine, Urine (Random) > 300.0 High 11.0-20.0 [facility] Comment on above: Order Comment: Reaso n for Exam Chronic kidney disease, stage 3b;Hypertensive nephropathy;Di Performed By: #### R ENAL, GEENA, FE and TIBC, CBCNO, [id number], [id number], URIC, MG, PTH #### [facility] [address] Protein (U) [Mass/Vol] 35 mg/dL High 0-9 Th e [facility] Comment on above: Order Comment: Reaso n for Exam Chronic kidney disease, stage 3b;Hypertensive nephropathy;Di Performed By: #### R ENAL, GEENA, FE and TIBC, CBCNO, [id number], [id number], URIC, MG, PTH #### [facility] [address] Urine Protein/Creatinine Ratio Not performed Normal 0-200 [facility] Comment on above: Order Comment: Reaso n for Exam Chronic kidney disease, stage 3b;Hypertensive nephropathy;Di Result Comment: PERF ORMED BY: [place] [address] PATHOLOGIST MANAGER TRAINING AND DEVELOPMENT ARIC BUTLER M.D. Performed By: #### R ENAL, GEENA, FE and TIBC, CBCNO, [id number], [id number], URIC, MG, PTH #### [address] Protein [Mass/volume] in Ser um or PlasmaOrdered By: Halle Mac on 05-17-2023 Protein [Mass/Vol] 6.6 g/dL 6.4-8.9 [facility] Protein [Mass/volume] in Uri neOrdered By: Halle Mac on 05-17-2023 Protein (U) [Mass/Vol] 35 mg/dL 0-9 [facility] RBC Auto (Bld) [#/Vol]Ordere d By: Halle Mac on 05-17-2023 RBC (Bld) [#/Vol] 4.03 10*6/uL 3.60-5.00 [facility] Serum or plasma albumin/glob ulin mass ratioOrdered By: Halle Mac on 05-17-2023 Albumin/Globulin [Mass ratio] 1.9 {ratio} [facility] Serum or plasma anion gap de terminationOrdered By: Halle Mac on 05-17-2023 Anion gap [Moles/Vol] 10.8 mmol/L 6.0-15.0 Fi [facility] Sodium [Moles/volume] in Ser um or PlasmaOrdered By: Halle Mac on 05-17-2023 Sodium [Moles/Vol] 142 mmol/L 136-145 [facility] Specific gravity Auto test s trip (U) [Rel density]Ordered By: Halle Mac on 05-17-2023 Specific gravity (U) [Rel density] 1.025 1.001-1.030 [facility] Squamous epithelial cells de tection in urine sediment by light microscopyOrdered By: Halle Mac on 05-17-2023 Epithelial cells.squamous LM Ql (Urine sed) 3-4 [HPF] 0-2 [facility] Transferrin [Mass/volume] in Serum or PlasmaOrdered By: Halle Mac on 05-17-2023 Transferrin [Mass/Vol] 384 mg/dL 203-362 [facility] Urate [Mass/volume] in Serum or PlasmaOrdered By: Halle Mac on 05-17-2023 Urate [Mass/Vol] 7.3 mg/dL 2.3-6.6 [facility] Urea nitrogen [Mass/volume] in Serum or PlasmaOrdered By: Halle Mac on 05-17-2023 Urea nitrogen [Mass/Vol] 26 mg/dL 7-25 [facility] Uric Acidon 05-17-2023 Urate [Mass/Vol] 7.3 mg/dL High 2.3-6.6 [facility] Comment on above: Order Comment: Reaso n for Exam Chronic kidney disease, stage 3b;Hypertensive nephropathy;Di Performed By: #### R ENAL, GEENA, FE and TIBC, CBCNO, [id number], [id number], URIC, MG, PTH #### [address] Urine Cultureon 05-17-2023 Bacteria identified Cx Nom (U) 50,000 colonies/ml mixed bacterial skin contaminants 2 Days PERFORMED BY: [place] [address] PATHOLOGIST MANAGER TRAINING AND DEVELOPMENT ARIC BUTLER M.D. Normal [facility] Comment on above: Performed By: #### R ENAL, GEENA, FE and TIBC, CBCNO, [id number], [id number], URIC, MG, PTH #### [address] Urine bacteria detection by automated methodOrdered By: Halle Mac on 05-17-2023 Bacteria Auto Ql (U) None seen None Seen [facility] Urine clarity by refractomet ry automatedOrdered By: Halle Mac on 05-17-2023 Clarity Refractometry automated (U) Cloudy Clear [facility] Urine glucose measurement by automated test strip (mass/volume)Ordered By: Halle Mac on 05-17-2023 Glucose Auto test strip (U) [Mass/Vol] Normal mg/dL Normal [facility] Urine hemoglobin detection b y automated test stripOrdered By: Halle Mac on 05-17-2023 Hemoglobin Auto test strip Ql (U) Negative Negative [facility] Urine leukocyte esterase det ection by automated test stripOrdered By: Halle Mac on 05-17-2023 Leukocyte esterase Auto test strip Ql (U) 1+ Negative [facility] Urine protein/creatinine rat ioOrdered By: Halle Mac on 05-17-2023 Protein/Creatinine (U) [Ratio] TNP [facility] Comment on above: Test not performed Urobilinogen Auto test strip (U) [Mass/Vol]Ordered By: Halle Mac on 05-17-2023 Urobilinogen (U) [Mass/Vol] Normal mg/dL Normal [facility] Valproate [Mass/volume] in S brunilda or PlasmaOrdered By: Fauzia Huffman on 05-17-2023 Valproate [Mass/Vol] 24.0 ug/mL 50.0-100.0 [facility] Comment on above: Last dose: - Valproic Acid (in house)on 0 05-17-2023 Valproic Acid (in house) 24.0 ug/mL Low 50.0-100.0 [facility] Comment on above: Result Comment: Last dose: - PERFORMED BY: [address] [place] [address] PATHOLOGIST MANAGER TRAINING AND DEVELOPMENT ARIC BUTLER M.D. Performed By: #### R ENAL, GEENA, FE and TIBC, CBCNO, [id number], [id number], URIC, MG, PTH #### [address] [address] [facility] Vitamin D 25 Hydroxy Totalon 05-17-2023 Vitamin D 25 Hydroxy Total 24.3 ng/mL Low 30-100 [facility] Comment on above: Order Comment: Reaso n for Exam Chronic kidney disease, stage 3b;Hypertensive nephropathy;Di Result Comment: AWAIS MIN D STATUS 25(OH)VITAMIN D RANGE (ng/mL) Deficient <20 Insufficient 20 to <30 Sufficient 30 to 100 Reference: Nicole Almonte, Ed LI, et al. Evaluation,treatment, and prevention of vitamin D deficiency; an Endocrine Society clinical practice guideline. JCEM. 2010; 96(7):1911-30. PERFORMED BY: [address] [address] PATHOLOGIST MANAGER TRAINING AND DEVELOPMENT ARIC BUTLER M.D. Performed By: #### R ENAL, GEENA, FE and TIBC, CBCNO, [id number], [id number], URIC, MG, PTH #### [place] [id number] [facility] Vitamin D+Metabolites [Mass/ volume] in Serum or PlasmaOrdered By: Halle Mac on 05-17-2023 Vitamin D+Metabolites [Mass/Vol] 24.3 ng/mL 30-100 [facility] Comment on above: VITAMIN D STATUS 25( OH)VITAMIN D RANGE (ng/mL) Deficient <20 Insufficient 20 to <30Sufficient 30 to 100Reference: Nicole Almonte, Ed LI, et al. Evaluation,treatment, and prevention of vitamin D deficiency; an Endocrine Society clinical practice guideline. JCEM. 2010; 96(7):1911-30. Yeast detection in urine sed iment by light microscopyOrdered By: Halle Mac on 05-17-2023 Yeast LM Ql (Urine sed) None seen [HPF] None Se en [facility] pH Auto test strip (U)Ordere d By: Halle Mac on 05-17-2023 pH (U) 5.0 [pH] 5.0-9.0 [facility] Provider Orderson 05-09-2023 Provider Orders [id number] [facility] Office Visiton 03-14-2023 Follow-up visit [id number] Nithin Humphreys 1970 Date Provider Department Center 03/14/2023 [id number] [facility] No family history on file Level of Service:59313 HI OFFICE/OUTPATIENT ESTABLISHED MOD MDM 30-39 MIN Normal [facility] 37on 11-30-2022 37 -Stop hydrochlorothiazide and start Spironolactone 25 mg daily -Stop Lisinopril and start Entresto 2 day after stopping Lisinopril -Get labs 1 week after starting Entresto -Bring blood pressure machine to be checked out when you come for blood draw Normal [facility] Office Visiton 11-30-2022 Follow-up visit [id number] Nithin Humphreys 1970 Date Provider Department Center 11/30/2022 [id number] SMALL [facility] No family history on file Level of Service:69094 HI OFFICE/OUTPATIENT ESTABLISHED MOD MDM 30-39 MIN Reason for Visit and Comments: Follow-up [183519] - Go over echo results Normal [facility] Office Visiton 09-29-2022 Follow-up visit [id number] Nithin Humphreys 1970 Date Provider Department Center 09/29/2022 [id number] LORENZ Hos No family history on file Level of Service:54686 HI OFFICE/OUTPATIENT ESTABLISHED MOD MDM 30-39 MIN Reason for Visit and Comments: Follow-up [652701] - Pt is here for 1 year f/u - lots of symptoms pt states she been having swelling legs high BP and Shortness of breath pt states swelling started 2 month ago other symptoms started 1 month ago Normal [facility] BNPon 09-07-2022 Natriuretic peptide B (Bld) [Mass/Vol] 391.0 pg/mL Normal <=900.0 [facility] Comment on above: Performed By: #### L IPID, BMP #### [facility] [address] [place] [address] Dr. Jag Waldrop CBC AUTO DIFFon 09-07-2022 BASO # 0.1 103/ul Normal 0.0-0.1 [facility] Comment on above: Performed By: #### L IPID, BMP #### [facility] [address] [place] [address] Dr. Jag Waldrop Basophils/100 WBC (Bld) 1.4 % Normal 0.2-2.0 [facility] Comment on above: Performed By: #### L IPID, BMP #### [facility] [address] [place] [address] Dr. Jag Waldrop EO # 0.1 103/ul Normal 0.0-0.7 [facility] Comment on above: Performed By: #### L IPID, BMP #### [facility] [address] [place] [address] Dr. Jag Waldrop Eosinophils/100 WBC (Bld) 1.6 % Normal 0.9-7.0 [facility] Comment on above: Performed By: #### L IPID, BMP #### [facility] [address] [place] [address] Dr. Jag Waldrop Erythrocyte distribution width (RBC) [Ratio] 15.0 % Normal 11.0-15.0 [facility] Comment on above: Performed By: #### L IPID, BMP #### [facility] [address] [place] [address] Dr. Jag Waldrop Hematocrit (Bld) [Volume fraction] 37.2 % Normal 36.0-48.0 [facility] Comment on above: Performed By: #### L IPID, BMP #### [facility] Laboratory [address] [place] [address] Dr. Jag Waldrop Hemoglobin (Bld) [Mass/Vol] 11.6 g/dL Critically low 12.0-16.0 [facility] Comment on above: Performed By: #### L IPID, BMP #### [facility] [address] [place] [address] Dr. Jag Waldrop IG # 0.01 10e3/ul Normal 0.00-0.03 [facility] Comment on above: Performed By: #### L IPID, BMP #### [facility] [address] [place] [address] Dr. Jag Waldrop IG % 0.2 % Normal 0.0-0.5 [facility] Comment on above: Performed By: #### L IPID, BMP #### [facility] [address] [place] [address] Dr. Jag Waldrop LYMPH # 1.9 103/ul Normal 1.2-3.8 [facility] Comment on above: Performed By: #### L IPID, BMP #### [facility] [address] [place] [address] Dr. Jag Waldrop Lymphocytes/100 WBC (Bld) 39.1 % Normal 20.5-60.0 [facility] Comment on above: Performed By: #### L IPID, BMP #### [facility] [address] [place] [address] Dr. Jag Waldrop MANUAL DIFF REQ NO Normal [facility] Comment on above: Performed By: #### L IPID, BMP #### [facility] [address] [place] [address] Dr. Jag Waldrop MCH (RBC) [Entitic mass] 27.5 pg Normal 26.7-34.0 [facility] Comment on above: Performed By: #### L IPID, BMP #### [facility] [address] [place] [address] Dr. Jag Waldrop MCHC (RBC) [Mass/Vol] 31.2 g/dL Normal 29.9-35.2 [facility] Comment on above: Performed By: #### L IPID, BMP #### [facility] [address] [place] [address] Dr. Jag Waldrop MCV (RBC) [Entitic vol] 88.2 fL Normal 81.0-99.0 [facility] Comment on above: Performed By: #### L IPID, BMP #### [facility] [address] [place] [address] Dr. Jag Waldrop MONO # 0.3 103/ul Normal 0.3-0.8 [facility] Comment on above: Performed By: #### L IPID, BMP #### [facility] [address] [place] [address] Dr. Jag Waldrop Monocytes/100 WBC (Bld) 6.5 % Normal 1.7-12.0 [facility] Comment on above: Performed By: #### L IPID, BMP #### [facility] [address] [place] [address] Dr. Jag Waldrop NEUT # 2.5 103/ul Normal 1.4-6.5 [facility] Comment on above: Performed By: #### L IPID, BMP #### [facility] [address] [place] [address] Dr. Jag Waldrop Neutrophils/100 WBC (Bld) 51.2 % Normal 43.0-75.0 [facility] Comment on above: Performed By: #### L IPID, BMP #### [facility] [address] [place] [address] Dr. Jag Waldrop Platelet mean volume (Bld) [Entitic vol] 10.5 fL Normal 9.5-13.5 [facility] Comment on above: Performed By: #### L IPID, BMP #### [facility] [address] [place] [address] Dr. Jag Waldrop PLT 272 103/ul Normal 150-450 [facility] Comment on above: Performed By: #### L IPID, BMP #### [facility] [address] [place] [address] Dr. Jag Waldrop RBC 4.22 106/ul Normal 4.20-5.40 [facility] Comment on above: Performed By: #### L IPID, BMP #### [facility] [address] [place] [address] Dr. Jag Waldrop WBC 4.9 103/ul Normal 4.0-11.0 [facility] Comment on above: Performed By: #### L IPID, BMP #### [facility] [address] [place] [address] Dr. Jag Waldrop ER URINE PROFILEon 3 Bilirubin Ql (U) Negative Normal NEGATIVE [facility] Comment on above: Performed By: #### E RUR #### [facility] [address] [place] [address] Dr. Jag Waldrop Clarity (U) CLEAR Normal CLEAR [facility] Comment on above: Performed By: #### E RUR #### [facility] [address] [place] [address] Dr. Jag Waldrop Color (U) LT. YELLOW Normal YELLOW [facility] Comment on above: Performed By: #### E RUR #### [facility] [address] [place] [address] Dr. Jag SAL A micrscopic examination will be performed if indicated. Normal [facility] Comment on above: Performed By: #### E RUR #### [facility] [address] [place] [address] Dr. Jag Waldrop Glucose Ql (U) Negative Normal NEGATIVE [facility] Comment on above: Performed By: #### E RUR #### [facility] [address] [place] [address] Dr. Jag Waldrop Hemoglobin Ql (U) Negative Normal NEGATIVE [facility] Comment on above: Performed By: #### E RUR #### [facility] [address] [place] [address] Dr. Jag Waldrop Ketones Ql (U) Negative Normal NEGATIVE [facility] Comment on above: Performed By: #### E RUR #### [facility] [address] [place], [place] [id number] Dr. Jag Waldrop LEUKOCYTES Negative Normal NEGATIVE [facility] Comment on above: Performed By: #### E RUR #### [facility] [address] [place] [address] Dr. Jag Waldrop Nitrite Ql (U) Negative Normal NEGATIVE [facility] Comment on above: Performed By: #### E RUR #### [facility] [address] [place] [address] Dr. Jag Waldrop pH (U) 7.0 [pH] Normal 5-9 [facility] Comment on above: Performed By: #### E RUR #### [facility] [address] [place] [address] Dr. Jag Waldrop SPEC GRAVITY 1.010 Normal 1.005-<=1.02 5 [facility] Comment on above: Performed By: #### E RUR #### [facility] [address] [place] [address] Dr. Jag Waldrop UA PROTEIN Negative Normal NEGATIVE/ TRACE [facility] Comment on above: Performed By: #### E RUR #### [facility] [address] [place] [address] Dr. Jag Waldrop UR MICRO IND NOT INDICATED Normal [facility] Comment on above: Performed By: #### E RUR #### [facility] [address] [place] [address] Dr. Jag Waldrop Urobilinogen Qn (U) 0.2 {Chris'U}/dL Normal 0.2 - 1. 0 [facility] Comment on above: Performed By: #### E RUR #### [facility] [address] [place] [address] Dr. Jag Waldrop PROF 14(COMP METB)on 023 Albumin [Mass/Vol] 3.9 g/dL Normal 3.4-5.0 [facility] Comment on above: Performed By: #### L IPID, BMP #### [facility] [address] [place] [address] Dr. Jag Waldrop Albumin/Globulin [Mass ratio] 1.2 {ratio} Normal [facility] Comment on above: Performed By: #### L IPID, BMP #### [facility] [address] [address] [address] Jag Waldrop ALP [Catalytic activity/Vol] 95 U/L Normal 46-116 [facility] Comment on above: Performed By: #### L IPID, BMP #### [facility] [address] [address] [address] Jag Waldrop ALT [Catalytic activity/Vol] 31 U/L Normal 14-59 [facility] Comment on above: Performed By: #### L IPID, BMP #### [facility] [address] [address] [address] Jag Waldrop Anion gap [Moles/Vol] 12.7 mmol/L Normal [facility] Comment on above: Performed By: #### L IPID, BMP #### [facility] [address] [address] [address] Jag Waldrop AST [Catalytic activity/Vol] 34 U/L Normal 15-37 [facility] Comment on above: Performed By: #### L IPID, BMP #### [facility] [address] [address] [address] Jag Waldrop Bilirubin [Mass/Vol] 0.4 mg/dL Normal 0.2-1.0 [facility] Comment on above: Performed By: #### L IPID, BMP #### [facility] [address] [address] [address] Jag Waldrop Calcium [Mass/Vol] 9.1 mg/dL Normal 8.5-10.1 [facility] Comment on above: Performed By: #### L IPID, BMP #### [facility] [address] [address] [address] Jag Waldrop Chloride [Moles/Vol] 107 mmol/L Normal 98-107 [facility] Comment on above: Performed By: #### L IPID, BMP #### [facility] [address] [address] [address] Jag Waldrop CO2 [Moles/Vol] 28.1 mmol/L Normal 21.0-32.0 [facility] Comment on above: Performed By: #### L IPID, BMP #### [facility] [address] [place] [address] Dr. Jag Waldrop Creatinine [Mass/Vol] 1.18 mg/dL Critically high 0.55-1.02 [facility] Comment on above: Performed By: #### L IPID, BMP #### [facility] [address] [place] [address] Dr. Jag Waldrop EGFR-AF CITIZ[place] 59 mL/min/1.73m2 Critically low >=60 [facility] Comment on above: Performed By: #### L IPID, BMP #### [facility] [address] [place] [address] Dr. Jag Waldrop EGFR-NON AF CITIZEN OF [place] 48 mL/min/1.73m2 Critically low >=60 [facility] Comment on above: Performed By: #### L IPID, BMP #### [facility] [address] [place] [address] Dr. Jag Waldrop Globulin (S) [Mass/Vol] 3.3 g/dL Normal [facility] Comment on above: Performed By: #### L IPID, BMP #### [facility] [address] [place] [address] Dr. Jag Waldrop Glucose [Mass/Vol] 111 mg/dL Critically high 74-106 [facility] Comment on above: Performed By: #### L IPID, BMP #### [facility] [address] [place] [address] Dr. Jag Waldrop Potassium [Moles/Vol] 3.8 mmol/L Normal 3.5-5.1 [facility] Comment on above: Performed By: #### L IPID, BMP #### [facility] [address] [place] [address] Dr. Jag Waldrop Protein [Mass/Vol] 7.2 g/dL Normal 6.4-8.2 [facility] Comment on above: Performed By: #### L IPID, BMP #### [facility] [address] [place] [address] Dr. Jag Waldrop Sodium [Moles/Vol] 144 mmol/L Normal 136-145 [facility] Comment on above: Performed By: #### L IPID, BMP #### [facility] [address] [place] [address] Dr. Jag Waldrop Urea nitrogen [Mass/Vol] 19.0 mg/dL Critically high 7.0-18.0 [facility] Comment on above: Performed By: #### L IPID, BMP #### [facility] [address] [place] [address] Dr. Jag Waldrop Urea nitrogen/Creatinine [Mass ratio] 16.1 mg/mg Normal [facility] Comment on above: Performed By: #### L IPID, BMP #### [facility] [address] [place] [address] Dr. Jag Waldrop PROTIMEon 09-07-2022 INR Coag (PPP) [Relative time] {INR} Normal [facility] Comment on above: Performed By: #### P T #### [facility] [address] [place] [address] Dr. Jag Waldrop INR GUIDELINES SEE BELOW Normal [facility] Comment on above: Result Comment: MARTIN RED INR: 2.0 - 3.0 CONDITIONS NOT LISTED BELOW 2.5 - 3.5 FOR PROSTHETIC HEART VALVE REPLACEMENT 2.5 - 3.5 RECURRENT THROMBOSIS Performed By: #### P T #### [facility] [address] [place] [address] Dr. Jag Waldrop PT Coag (PPP) [Time] 9.7 s Normal 9.0-11.6 [facility] Comment on above: Performed By: #### P T #### [facility] [address] [place] [address] Dr. Jag Waldrop TROPONIN, HIGH SENSITIVITYon 09-07-2022 HSTROP 17.8 pg/mL Normal 4.0-51.3 [facility] Comment on above: Result Comment: CUT- OFF POINTS HAVE BEEN ESTABLISHED BASED ON THE FOURTH UNIVERSAL DEFINITIONS OF MYOCARDIAL INFARCTION. THE UPPER REFERENCE LIMIT (URL) OF TROPONIN, DEFINED THE 99TH PERCENTILE OF cTnI DISTRIBUTION IN A REFERENCE POPULATION, HAS BEEN CONFIRMED THE DECISION THRESHOLD FOR [place] DIAGNOSIS. Performed By: #### L TESHA, BMP #### [facility] [address] [place] [address] Dr. Jag Waldrop XR CHEST 2 Von [...] by: WAN JENKINS Date: 2022-09-07 16:47 Normal [facility] GLYCOHEMOGLOBIN A1Con 2022 ADA RECOMMENDATION SEE BELOW Normal [facility] Comment on above: Result Comment: ADA RECOMMENDED LIMIT 4.0 - 6.0 ADA THERAPEUTIC TARGET < 7.0 ACTION SUGGESTED > 7.0 Performed By: #### L TESHA BMP #### [facility] [address] [place] [address] Dr. Jag Waldrop Glucose [Mass/Vol] 120 mg/dL Normal [facility] Comment on above: Performed By: #### L TESHA BMP #### [facility] [address] [place] [address] Dr. Jag Waldrop HbA1c (Bld) [Mass fraction] 5.8 % Normal 4.5-6.2 [facility] Comment on above: Performed By: #### L TESHA BMP #### [facility] [address] [place] [address] Dr. Jag Waldrop PROF CHEM 8 (BAS METB)on Anion gap [Moles/Vol] 13.2 mmol/L Normal [facility] Comment on above: Performed By: #### B MP #### [facility] [address] [place] [address] Dr. Jag Waldrop Calcium [Mass/Vol] 9.0 mg/dL Normal 8.5-10.1 [facility] Comment on above: Performed By: #### B MP #### [facility] [address] [place] [address] Dr. Jag Waldrop Chloride [Moles/Vol] 107 mmol/L Normal 98-107 [facility] Comment on above: Performed By: #### B MP #### [facility] [address] [address] [address] Jag Waldrop CO2 [Moles/Vol] 26.3 mmol/L Normal 21.0-32.0 [facility] Comment on above: Performed By: #### B MP #### [facility] [address] [address] [address] Jag Waldrop Creatinine [Mass/Vol] 1.03 mg/dL Critically high 0.55-1.02 [facility] Comment on above: Performed By: #### B MP #### [facility] [address] [place] [address] Dr. Jag Waldrop EGFR-AF CITIZ[place] >60 Normal >=60 [facility] Comment on above: Performed By: #### B MP #### [facility] [address] [address] [address] Jag Waldrop EGFR-NON AF CITIZEN OF [place] 56 mL/min/1.73m2 Critically low >=60 [facility] Comment on above: Performed By: #### B MP #### [facility] [address] [address] [address] Jag Waldrop Glucose [Mass/Vol] 149 mg/dL Critically high 74-106 [facility] Comment on above: Performed By: #### B MP #### [facility] [address] [address] [address] Jag Waldrop Potassium [Moles/Vol] 4.5 mmol/L Normal 3.5-5.1 [facility] Comment on above: Performed By: #### B MP #### [facility] [address] [address] [address] Jag Waldrop Sodium [Moles/Vol] 142 mmol/L Normal 136-145 [facility] Comment on above: Performed By: #### B MP #### [facility] [address] [address] [address] Jag Waldrop Urea nitrogen [Mass/Vol] 22.0 mg/dL Critically high 7.0-18.0 [facility] Comment on above: Performed By: #### B MP #### [facility] [address] [place], [place] [address] Dr. Jag Waldrop Urea nitrogen/Creatinine [Mass ratio] 21.4 mg/mg Normal [facility] Comment on above: Performed By: #### B MP #### [facility] [address] [place], [place] [address] ABD/PELVIS WO CONon [...] by: NATHAN COLE Date: 2022-05-29 22:50 Normal [facility] US KVNG DOP LEG RTon 05-30-19 [...] by: LUZ COELLO Date: 2022-05-29 22:42 Normal [facility] CBC AUTO DIFFon 05-29-2022 BASO # 0.1 103/ul Normal 0.0-0.1 [facility] Comment on above: Performed By: #### L IPID, BMP #### [facility] [address] [address] [address] Jag Waldrop Basophils/100 WBC (Bld) 0.7 % Normal 0.2-2.0 [facility] Comment on above: Performed By: #### L IPID, BMP #### [facility] [address] [place] [address] Dr. Jag Waldrop EO # 0.1 103/ul Normal 0.0-0.7 [facility] Comment on above: Performed By: #### L IPID, BMP #### [facility] [address] [place] [address] Dr. Jag Waldrop Eosinophils/100 WBC (Bld) 1.5 % Normal 0.9-7.0 [facility] Comment on above: Performed By: #### L IPID, BMP #### [facility] [address] [address] [address] Jag Waldrop Erythrocyte distribution width (RBC) [Ratio] 13.9 % Normal 11.0-15.0 [facility] Comment on above: Performed By: #### L IPID, BMP #### [facility] [address] [place] [address] Dr. Jag Waldrop Hematocrit (Bld) [Volume fraction] 34.2 % Critically low 36.0-48.0 [facility] Comment on above: Performed By: #### L IPID, BMP #### [facility] [address] [place] [address] Dr. Jag Waldrop Hemoglobin (Bld) [Mass/Vol] 10.9 g/dL Critically low 12.0-16.0 [facility] Comment on above: Performed By: #### L IPID, BMP #### [facility] [address] [place] [address] Dr. Jag Waldrop IG # 0.02 10e3/ul Normal 0.00-0.03 [facility] Comment on above: Performed By: #### L IPID, BMP #### [facility] [address] [place] [address] Dr. Jag Waldrop IG % 0.2 % Normal 0.0-0.5 [facility] Comment on above: Performed By: #### L IPID, BMP #### [facility] [address] [place] [address] Dr. Jag Waldrop LYMPH # 2.5 103/ul Normal 1.2-3.8 [facility] Comment on above: Performed By: #### L IPID, BMP #### [facility] [address] [place] [address] Dr. Jag Waldrop Lymphocytes/100 WBC (Bld) 30.4 % Normal 20.5-60.0 [facility] Comment on above: Performed By: #### L IPID, BMP #### [facility] [address] [place] [address] Dr. Jag Waldrop MANUAL DIFF REQ NO Normal [facility] Comment on above: Performed By: #### L IPID, BMP #### [facility] [address] [place] [address] Dr. Jag Waldrop MCH (RBC) [Entitic mass] 27.1 pg Normal 26.7-34.0 [facility] Comment on above: Performed By: #### L IPID, BMP #### [facility] [address] [place] [address] Dr. Jag Waldrop MCHC (RBC) [Mass/Vol] 31.9 g/dL Normal 29.9-35.2 [facility] Comment on above: Performed By: #### L IPID, BMP #### [facility] [address] [place] [address] Dr. Jag Waldrop MCV (RBC) [Entitic vol] 85.1 fL Normal 81.0-99.0 [facility] Comment on above: Performed By: #### L IPID, BMP #### [facility] [address] [place] [address] Dr. Jag Waldrop MONO # 0.5 103/ul Normal 0.3-0.8 [facility] Comment on above: Performed By: #### L IPID, BMP #### [facility] [address] [place] [address] Dr. Jag Waldrop Monocytes/100 WBC (Bld) 6.7 % Normal 1.7-12.0 [facility] Comment on above: Performed By: #### L IPID, BMP #### [facility] [address] [place] [address] Dr. Jag Waldrop NEUT # 4.9 103/ul Normal 1.4-6.5 [facility] Comment on above: Performed By: #### L IPID, BMP #### [facility] [address] [place] [address] Dr. Jag Waldrop Neutrophils/100 WBC (Bld) 60.5 % Normal 43.0-75.0 [facility] Comment on above: Performed By: #### L IPID, BMP #### [facility] [address] [place] [address] Dr. Jag Waldrop Platelet mean volume (Bld) [Entitic vol] 10.3 fL Normal 9.5-13.5 [facility] Comment on above: Performed By: #### L IPID, BMP #### [facility] [address] [place] [address] Dr. Jag Waldrop PLT 256 103/ul Normal 150-450 [facility] Comment on above: Performed By: #### L IPID, BMP #### [facility] [address] [address] [address] Jag Waldrop RBC 4.02 106/ul Critically low 4.20-5.40 [facility] Comment on above: Performed By: #### L IPID, BMP #### [facility] [address] [address] [address] Jag Waldrop WBC 8.1 103/ul Normal 4.0-11.0 [facility] Comment on above: Performed By: #### L IPID, BMP #### [facility] [address] [address] [address] Jag Waldrop ER URINE PROFILEon 3 Bilirubin Ql (U) Negative Normal NEGATIVE [facility] Comment on above: Performed By: #### L IPID, BMP #### [facility] [address] [place] [address] Dr. Jag Waldrop Clarity (U) CLEAR Normal CLEAR [facility] Comment on above: Performed By: #### L IPID, BMP #### [facility] [address] [place] [address] Dr. Jag Waldrop Color (U) YELLOW Normal YELLOW [facility] Comment on above: Performed By: #### L IPID, BMP #### [facility] [address] [place] [address] Dr. Jag SOWTabitha A micrscopic examination will be performed if indicated. Normal [facility] Comment on above: Performed By: #### L IPID, BMP #### [facility] [address] [place] [address] Dr. Jag Waldrop Glucose Ql (U) Negative Normal NEGATIVE [facility] Comment on above: Performed By: #### L IPID, BMP #### [facility] [address] [place] [address] Dr. Jag Waldrop Hemoglobin Ql (U) Negative Normal NEGATIVE [facility] Comment on above: Performed By: #### L IPID, BMP #### [facility] [address] [place] [address] Dr. Jag Waldrop Ketones Ql (U) 15 mg/dl Abnormal NEGATIVE [facility] Comment on above: Performed By: #### L IPID, BMP #### [facility] [address] [place] [address] Dr. Jag Waldrop LEUKOCYTES TRACE Abnormal NEGATIVE [facility] Comment on above: Performed By: #### L IPID, BMP #### [facility] [address] [place] [address] Dr. Jag Waldrop Nitrite Ql (U) Negative Normal NEGATIVE [facility] Comment on above: Performed By: #### L IPID, BMP #### [facility] [address] [place] [address] Dr. Jag Waldrop pH (U) 5.5 [pH] Normal 5-9 [facility] Comment on above: Performed By: #### L IPID, BMP #### [facility] [address] [place] [address] Dr. Jag Waldrop SPEC GRAVITY 1.020 Normal 1.005-<=1.[address] [place] [address] Comment on above: Performed By: #### L IPID, BMP #### [facility] [address] [place] [address] Dr. Jag Waldrop UA PROTEIN Negative Normal NEGATIVE/ TRACE [facility] Comment on above: Performed By: #### L IPID, BMP #### [facility] [address] [place] [address] Dr. Jag Waldrop UR MICRO IND INDICATED Normal [facility] Comment on above: Performed By: #### L IPID, BMP #### [facility] [address] [place] [address] Dr. Jag Waldrop Urobilinogen Qn (U) 0.2 {Chris'U}/dL Normal 0.2 - 1. 0 [facility] Comment on above: Performed By: #### L IPID, BMP #### [facility] [address] [place] [address] Dr. Jag Waldrop PROF CHEM 8 (BAS METB)on Anion gap [Moles/Vol] 14.2 mmol/L Normal [facility] Comment on above: Performed By: #### B MP #### [facility] [address] [address] [address] Jag Waldrop Calcium [Mass/Vol] 9.1 mg/dL Normal 8.5-10.1 [facility] Comment on above: Performed By: #### B MP #### [facility] [address] [address] [address] Jag Waldrop Chloride [Moles/Vol] 106 mmol/L Normal 98-107 [facility] Comment on above: Performed By: #### B MP #### [facility] [address] [address] [address] Jag Waldrop CO2 [Moles/Vol] 23.5 mmol/L Normal 21.0-32.0 [facility] Comment on above: Performed By: #### B MP #### [facility] [address] [address] Dr. Jag Waldrop Creatinine [Mass/Vol] 1.29 mg/dL Critically high 0.55-1.02 [facility] Comment on above: Performed By: #### B MP #### [facility] [address] [address] [address] Jag Waldrop EGFR-AF [place]IZ[place] 53 mL/min/1.73m2 Critically low >=60 [facility] Comment on above: Performed By: #### B MP #### [facility] [address] [address] [address] Jag Waldrop EGFR-NON AF CITIZEN OF [place] 44 mL/min/1.73m2 Critically low >=60 [facility] Comment on above: Performed By: #### B MP #### [facility] [address] [address] [address] Jag Waldrop Glucose [Mass/Vol] 93 mg/dL Normal 74-106 [facility] Comment on above: Performed By: #### B MP #### [facility] [address] [address] [address] Jag Waldrop Potassium [Moles/Vol] 3.7 mmol/L Normal 3.5-5.1 [facility] Comment on above: Performed By: #### B MP #### [facility] [address] [address] [address] Jag Waldrop Sodium [Moles/Vol] 140 mmol/L Normal 136-145 [facility] Comment on above: Performed By: #### B MP #### [facility] [address] [place] [address] Dr. Jag Waldrop Urea nitrogen [Mass/Vol] 24.0 mg/dL Critically high 7.0-18.0 [facility] Comment on above: Performed By: #### B MP #### [facility] [address] [place] [address] Dr. Jag Waldrop Urea nitrogen/Creatinine [Mass ratio] 18.6 mg/mg Normal [facility] Comment on above: Performed By: #### B MP #### [facility] [address] [place] [address] Dr. Jag Wadlrop URINE MICROSCOPIC ONLYon BACTERIA TRACE Abnormal NONE SEEN [facility] Comment on above: Performed By: #### L IPID, BMP #### [facility] [address] [place] [address] Dr. Jag Waldrop Bacteria identified Cx Nom (U) NOT INDICATED Normal [facility] Comment on above: Performed By: #### L IPID, BMP #### [facility] [address] [place] [address] Dr. Jag Waldrop CAST NONE SEEN Normal NONE SEEN [facility] Comment on above: Performed By: #### L IPID, BMP #### [facility] [address] [place] [address] Dr. Jag Waldrop Crystals LM Nom (Urine sed) NONE SEEN Normal NONE SEEN [facility] Comment on above: Performed By: #### L IPID, BMP #### [facility] [address] [place] [address] Dr. Jag Waldrop Epithelial cells LM Ql (Urine sed) RARE Normal NONE SEEN /RARE [facility] Comment on above: Performed By: #### L IPID, BMP #### [facility] [address] [place] [address] Dr. Jag Waldrop MUCOUS NONE SEEN Normal NONE SEEN [facility] Comment on above: Performed By: #### L IPID, BMP #### [facility] [address] [address] [address] Jag Waldrop RBC 5-10 Abnormal 0-2 [facility] Comment on above: Performed By: #### L IPID, BMP #### [facility] [address] [address] [address] Jag Waldrop WBC 0-2 Abnormal NONE SEEN [facility] Comment on above: Performed By: #### L IPID, BMP #### [facility] [address] [address] [address] Jag Waldrop MG MAMM SCREEN 3D ORESTES CADon 03-29-2022 MG MAMM SCREEN 3D ORESTES CAD Patient: SHERLY HUMPHREYS Exam Date: 03/29/2022 : 1970 Gender:F Ordering : AGUSTINA [facility] Admission #: [id number] Family : Order #: [id number] CLICK HERE TO VIEW EXAM RADIOLOGY REPORT [...] head/neck cancer at age 73. LOCATION: [facility] BREAST COMPOSITION: Scattered areas fibroglandular density. [...] LUMP SHOULD BE BIOPSIED. Dictated by: Kathy Lobato M.D. on 03/29/2022 at 15:03 Approved by: Kathy Lobato M.D. on 03/29/2022 at 15:31 Normal [facility] MRI LSPINE WO W CONon 2021 MRI LSPINE WO W CON EXAMINATION: MRI LSPINE WO W CON HISTORY: Spinal stenosis ; [...] since prior study. Electronically authenticated by: KATHY LOBATO Date: 2022-03-23 11:26 Normal [facility] MRI TSPINE WO W CONon 2021 MRI TSPINE WO W CON EXAMINATION: MRI TSPINE WO W CON HISTORY: Spinal stenosis ; [...] compared to 08/09/2021. Electronically authenticated by: KATHY LOBATO Date: 2022-03-23 12:50 Normal [facility] PROF CHEM 8 (BAS METB)on Anion gap [Moles/Vol] 11.8 mmol/L Normal [facility] Comment on above: Performed By: #### P OCGLUC #### [facility] [address] [address] [address] Jag Waldrop Calcium [Mass/Vol] 9.0 mg/dL Normal 8.5-10.1 [facility] Comment on above: Performed By: #### P OCGLUC #### [facility] [address] [address] [address] Jag Waldrop Chloride [Moles/Vol] 107 mmol/L Normal 98-107 [facility] Comment on above: Performed By: #### P OCGLUC #### [facility] [address] [address] [address] Jag Waldrop CO2 [Moles/Vol] 30.2 mmol/L Normal 21.0-32.0 [facility] Comment on above: Performed By: #### P OCGLUC #### [facility] [address] [address] [address] Jag Waldrop Creatinine [Mass/Vol] 1.32 mg/dL Critically high 0.55-1.02 [facility] Comment on above: Performed By: #### P OCGLUC #### [facility] [address] [address] [address] Jag Waldrop EGFR-AF [place]IZ[place] 51 mL/min/1.73m2 Critically low >=60 [facility] Comment on above: Performed By: #### P OCGLUC #### [facility] [address] [address] [address] Jag Waldrop EGFR-NON AF CITIZEN OF [place] 42 mL/min/1.73m2 Critically low >=60 [facility] Comment on above: Performed By: #### P OCGLUC #### [facility] [address] [address] [address] Jag Waldrop Glucose [Mass/Vol] 117 mg/dL Critically high 74-106 [facility] Comment on above: Performed By: #### P OCGLUC #### [facility] [address] [address] [address] Jag Waldrop Potassium [Moles/Vol] 4.0 mmol/L Normal 3.5-5.1 [facility] Comment on above: Performed By: #### P OCGLUC #### [facility] [address] [address] [address] Jag Waldrop Sodium [Moles/Vol] 145 mmol/L Normal 136-145 [facility] Comment on above: Performed By: #### P OCGLUC #### [facility] [address] [address] [address] Jag Waldrop Urea nitrogen [Mass/Vol] 23.0 mg/dL Critically high 7.0-18.0 [facility] Comment on above: Performed By: #### P OCGLUC #### [facility] [address] [address] [address] Jag Waldrop Urea nitrogen/Creatinine [Mass ratio] 17.4 mg/mg Normal [facility] Comment on above: Performed By: #### P OCGLUC #### [facility] [address] [address] [address] Jag Waldrop CBC AUTO DIFFon 02-19-2022 BASO # 0.1 103/ul Normal 0.0-0.1 [facility] Comment on above: Performed By: #### P OCGLUC #### [facility] [address] [address] [address] Jag Waldrop Basophils/100 WBC (Bld) 1.0 % Normal 0.2-2.0 [facility] Comment on above: Performed By: #### P OCGLUC #### [facility] [address] [address] [address] Jag Waldrop EO # 0.1 103/ul Normal 0.0-0.7 [facility] Comment on above: Performed By: #### P OCGLUC #### [facility] [address] [place] [address] Dr. Jag Waldrop Eosinophils/100 WBC (Bld) 1.9 % Normal 0.9-7.0 [facility] Comment on above: Performed By: #### P OCGLUC #### [facility] [address] [place] [address] Dr. Jag Waldrop Erythrocyte distribution width (RBC) [Ratio] 13.2 % Normal 11.0-15.0 [facility] Comment on above: Performed By: #### P OCGLUC #### [facility] [address] [place] [address] Dr. Jag Waldrop Hematocrit (Bld) [Volume fraction] 36.7 % Normal 36.0-48.0 [facility] Comment on above: Performed By: #### P OCGLUC #### [facility] [address] [place] [address] Dr. Jag Waldrop Hemoglobin (Bld) [Mass/Vol] 11.4 g/dL Critically low 12.0-16.0 [facility] Comment on above: Performed By: #### P OCGLUC #### [facility] [address] [place] [address] Dr. Jag Waldrop IG # 0.03 10e3/ul Normal 0.00-0.03 [facility] Comment on above: Performed By: #### P OCGLUC #### [facility] [address] [place] [address] Dr. Jag Waldrop IG % 0.5 % Normal 0.0-0.5 [facility] Comment on above: Performed By: #### P OCGLUC #### [facility] [address] [place] [address] Dr. Jag Waldrop LYMPH # 2.1 103/ul Normal 1.2-3.8 [facility] Comment on above: Performed By: #### P OCGLUC #### [facility] [address] [address] [address] Jag Waldrop Lymphocytes/100 WBC (Bld) 34.1 % Normal 20.5-60.0 [facility] Comment on above: Performed By: #### P OCGLUC #### [facility] [address] [address] [address] Jag Waldrop MANUAL DIFF REQ NO Normal [facility] Comment on above: Performed By: #### P OCGLUC #### [facility] [address] [address] [address] Jag Waldrop MCH (RBC) [Entitic mass] 28.4 pg Normal 26.7-34.0 [facility] Comment on above: Performed By: #### P OCGLUC #### [facility] [address] [place] [address] Dr. Jag Waldrop MCHC (RBC) [Mass/Vol] 31.1 g/dL Normal 29.9-35.2 [facility] Comment on above: Performed By: #### P OCGLUC #### [facility] [address] [address] [address] Jag Waldrop MCV (RBC) [Entitic vol] 91.5 fL Normal 81.0-99.0 [facility] Comment on above: Performed By: #### P OCGLUC #### [facility] [address] [place] [address] Dr. Jag Waldrop MONO # 0.5 103/ul Normal 0.3-0.8 [facility] Comment on above: Performed By: #### P OCGLUC #### [facility] [address] [place] [address] Dr. Jag Waldrop Monocytes/100 WBC (Bld) 8.4 % Normal 1.7-12.0 [facility] Comment on above: Performed By: #### P OCGLUC #### [facility] [address] [place] [address] Dr. Jag Waldrop NEUT # 3.3 103/ul Normal 1.4-6.5 [facility] Comment on above: Performed By: #### P OCGLUC #### [facility] [address] [address] [address] Jag Waldrop Neutrophils/100 WBC (Bld) 54.1 % Normal 43.0-75.0 [facility] Comment on above: Performed By: #### P OCGLUC #### [facility] [address] [address] [address] Jag Waldrop Platelet mean volume (Bld) [Entitic vol] 10.6 fL Normal 9.5-13.5 [facility] Comment on above: Performed By: #### P OCGLUC #### [facility] [address] [address] [address] Jag Waldrop PLT 294 103/ul Normal 150-450 [facility] Comment on above: Performed By: #### P OCGLUC #### [facility] [address] [address] [address] Jag Waldrop RBC 4.01 106/ul Critically low 4.20-5.40 [facility] Comment on above: Performed By: #### P OCGLUC #### [facility] [address] [address] [address] Jag Waldrop WBC 6.2 103/ul Normal 4.0-11.0 [facility] Comment on above: Performed By: #### P OCGLUC #### [facility] [address] [place] [address] Dr. Jag Waldrop CRPon 02-19-2022 CRP [Mass/Vol] mg/L Normal <=1.0 [facility] Comment on above: Performed By: #### E RUR #### [facility] [address] [place] [address] TSPINE WO CONon [...] ALEX AVINA Date: 2022-02-19 19:25 Normal [facility] ER URINE PROFILEon 2 Bilirubin Ql (U) Negative Normal NEGATIVE [facility] Comment on above: Performed By: #### P OCGLUC #### [facility] [address] [place] [address] Dr. Jag Waldrop Clarity (U) CLEAR Normal CLEAR [facility] Comment on above: Performed By: #### P OCGLUC #### [facility] [address] [place] [address] Dr. Jag Waldrop Color (U) LT. YELLOW Normal YELLOW [facility] Comment on above: Performed By: #### P OCGLUC #### [facility] [address] [place] [address] Dr. Jag SAL A micrscopic examination will be performed if indicated. Normal [facility] Comment on above: Performed By: #### P OCGLUC #### [facility] [address] [address] [address] Jag Waldrop Glucose Ql (U) Negative Normal NEGATIVE [facility] Comment on above: Performed By: #### P OCGLUC #### [facility] [address] [place] [address] Dr. Jag Waldrop Hemoglobin Ql (U) Negative Normal NEGATIVE [facility] Comment on above: Performed By: #### P OCGLUC #### [facility] [address] [place] [address] Dr. Jag Waldrop Ketones Ql (U) Negative Normal NEGATIVE [facility] Comment on above: Performed By: #### P OCGLUC #### [facility] [address] [address] [address] Jag aWldrop LEUKOCYTES Negative Normal NEGATIVE [facility] Comment on above: Performed By: #### P OCGLUC #### [facility] [address] [place] [address] Dr. Jag Waldrop Nitrite Ql (U) Negative Normal NEGATIVE [facility] Comment on above: Performed By: #### P OCGLUC #### [facility] [address] [place] [address] Dr. Jag Waldrop pH (U) 5.5 [pH] Normal 5-9 [facility] Comment on above: Performed By: #### P OCGLUC #### [facility] [address] [place] [address] Dr. Jag Waldrop SPEC GRAVITY 1.020 Normal 1.005-<=1.02 5 [facility] Comment on above: Performed By: #### P OCGLUC #### [facility] [address] [place] [address] Dr. Jag Waldrop UA PROTEIN Negative Normal NEGATIVE/ TRACE [facility] Comment on above: Performed By: #### P OCGLUC #### [facility] [address] [place] [address] Dr. Jag Waldrop UR MICRO IND NOT INDICATED Normal [facility] Comment on above: Performed By: #### P OCGLUC #### [facility] [address] [place] [address] Dr. Jag Waldrop Urobilinogen Qn (U) 0.2 {Chris'U}/dL Normal 0.2 - 1. 0 [facility] Comment on above: Performed By: #### P OCGLUC #### [facility] [address] [place] [address] Dr. Jag Waldrop PROF CHEM 8 (BAS METB)on Anion gap [Moles/Vol] 10.8 mmol/L Normal [facility] Comment on above: Performed By: #### E RUR #### [facility] [address] [place] [address] Dr. Jag Waldrop Calcium [Mass/Vol] 9.0 mg/dL Normal 8.5-10.1 [facility] Comment on above: Performed By: #### E RUR #### [facility] [address] [place] [address] Dr. Jag Waldrop Chloride [Moles/Vol] 106 mmol/L Normal 98-107 [facility] Comment on above: Performed By: #### E RUR #### [facility] [address] [address] [address] Jag Waldrop CO2 [Moles/Vol] 28.1 mmol/L Normal 21.0-32.0 [facility] Comment on above: Performed By: #### E RUR #### [facility] [address] [place] [address] Dr. Jag Waldrop Creatinine [Mass/Vol] 1.06 mg/dL Critically high 0.55-1.02 [facility] Comment on above: Performed By: #### E RUR #### [facility] [address] [place] [address] Dr. Jag Waldrop EGFR-AF [place] >60 Normal >=60 [facility] Comment on above: Performed By: #### E RUR #### [facility] [address] [place] [address] Dr. Jag Waldrop EGFR-NON AF [place] 55 mL/min/1.73m2 Critically low >=60 [facility] Comment on above: Performed By: #### E RUR #### [facility] [address] [place] [address] Dr. Jag Waldrop Glucose [Mass/Vol] 89 mg/dL Normal 74-106 [facility] Comment on above: Performed By: #### E RUR #### [facility] [address] [place] [address] Dr. Jag Waldrop Potassium [Moles/Vol] 3.9 mmol/L Normal 3.5-5.1 [facility] Comment on above: Performed By: #### E RUR #### [facility] [address] [place] [address] Dr. Jag Waldrop Sodium [Moles/Vol] 141 mmol/L Normal 136-145 [facility] Comment on above: Performed By: #### E RUR #### [facility] [address] [place] [address] Dr. Jag Waldrop Urea nitrogen [Mass/Vol] 19.0 mg/dL Critically high 7.0-18.0 [facility] Comment on above: Performed By: #### E RUR #### [facility] [address] [place] [address] Dr. Jag Waldrop Urea nitrogen/Creatinine [Mass ratio] 17.9 mg/mg Normal [facility] Comment on above: Performed By: #### E RUR #### [facility] [address] [place] [address] Dr. Jag Waldrop SED RATE [facility] 2021 SED RATE 19 mm/hr Normal <=30 [facility] Comment on above: Performed By: #### L IPID, BMP #### [facility] [address] [place] [address] Dr. Jag Waldrop PROF CHEM 8 (BAS METB)on Anion gap [Moles/Vol] 17.3 mmol/L Normal [facility] Comment on above: Performed By: #### L IPID, BMP #### [facility] [address] [place] [address] Dr. Jag Waldrop Calcium [Mass/Vol] 9.2 mg/dL Normal 8.5-10.1 [facility] Comment on above: Performed By: #### L IPID, BMP #### [facility] [address] [place] [address] Dr. Jag Waldrop Chloride [Moles/Vol] 108 mmol/L Critically high 98-107 [facility] Comment on above: Performed By: #### L IPID, BMP #### [facility] [address] [place] [address] Dr. Jag Waldrop CO2 [Moles/Vol] 20.0 mmol/L Critically low 21.0-32.0 [facility] Comment on above: Performed By: #### L IPID, BMP #### [facility] [address] [address] [address] Jag Waldrop Creatinine [Mass/Vol] 1.40 mg/dL Critically high 0.55-1.02 [facility] Comment on above: Performed By: #### L IPID, BMP #### [facility] [address] [address] [address] Jag Waldrop EGFR-AF [place] 48 mL/min/1.73m2 Critically low >=60 [facility] Comment on above: Performed By: #### L IPID, BMP #### [facility] [address] [address] [address] Jag Waldrop EGFR-NON AF [place]IZ[place] 40 mL/min/1.73m2 Critically low >=60 [facility] Comment on above: Performed By: #### L IPID, BMP #### [facility] [address] [address] [address] Jag Waldrop Glucose [Mass/Vol] 126 mg/dL Critically high 74-106 [facility] Comment on above: Performed By: #### L IPID, BMP #### [facility] [address] [address] [address] Jag Waldrop Potassium [Moles/Vol] 5.3 mmol/L Critically high 3.5-5.1 [facility] Comment on above: Performed By: #### L IPID, BMP #### [facility] [address] [address] [address] Jag Waldrop Sodium [Moles/Vol] 140 mmol/L Normal 136-145 [facility] Comment on above: Performed By: #### L IPID, BMP #### [facility] [address] [address] [address] Jag Waldrop Urea nitrogen [Mass/Vol] 31.0 mg/dL Critically high 7.0-18.0 [facility] Comment on above: Performed By: #### L IPID, BMP #### [facility] [address] [address] [address] Jag Waldrop Urea nitrogen/Creatinine [Mass ratio] 22.1 mg/mg Normal [facility] Comment on above: Performed By: #### L IPID, BMP #### [facility] [address] [place] [address] Dr. Jag Waldrop CBC AUTO DIFFon 01-23-2022 BASO # 0.1 103/ul Normal 0.0-0.1 [facility] Comment on above: Performed By: #### C BC #### [facility] [address] [place] [address] Dr. Jag Waldrop Basophils/100 WBC (Bld) 1.0 % Normal 0.2-2.0 [facility] Comment on above: Performed By: #### C BC #### [facility] [address] [place] [address] Dr. Jag Waldrop EO # 0.2 103/ul Normal 0.0-0.7 [facility] Comment on above: Performed By: #### C BC #### [facility] [address] [place] [address] Dr. Jag Waldrop Eosinophils/100 WBC (Bld) 3.3 % Normal 0.9-7.0 [facility] Comment on above: Performed By: #### C BC #### [facility] [address] [place] [address] Dr. Jag Waldrop Erythrocyte distribution width (RBC) [Ratio] 13.2 % Normal 11.0-15.0 [facility] Comment on above: Performed By: #### C BC #### [facility] [address] [place] [address] Dr. Jag Waldrop Hematocrit (Bld) [Volume fraction] 35.6 % Critically low 36.0-48.0 [facility] Comment on above: Performed By: #### C BC #### [facility] [address] [place] [address] Dr. Jag Waldrop Hemoglobin (Bld) [Mass/Vol] 10.6 g/dL Critically low 12.0-16.0 [facility] Comment on above: Performed By: #### C BC #### [facility] [address] [place] [address] Dr. Jag Waldrop IG # 0.01 10e3/ul Normal 0.00-0.03 [facility] Comment on above: Performed By: #### C BC #### [facility] [address] [place] [address] Dr. Jag Waldrop IG % 0.2 % Normal 0.0-0.5 [facility] Comment on above: Performed By: #### C BC #### [facility] [address] [place] [address] Dr. Jag Waldrop LYMPH # 1.7 103/ul Normal 1.2-3.8 [facility] Comment on above: Performed By: #### C BC #### [facility] [address] [place] [address] Dr. Jag Waldrop Lymphocytes/100 WBC (Bld) 35.4 % Normal 20.5-60.0 [facility] Comment on above: Performed By: #### C BC #### [facility] [address] [place] [address] Dr. Jag Waldrop MANUAL DIFF REQ NO Normal [facility] Comment on above: Performed By: #### C BC #### [facility] [address] [place] [address] Dr. Jag Waldrop MCH (RBC) [Entitic mass] 29.0 pg Normal 26.7-34.0 [facility] Comment on above: Performed By: #### C BC #### [facility] [address] [place] [address] Dr. Jag Waldrop MCHC (RBC) [Mass/Vol] 29.8 g/dL Critically low 29.9-35.2 [facility] Comment on above: Performed By: #### C BC #### [facility] [address] [place] [address] Dr. Jag Waldrop MCV (RBC) [Entitic vol] 97.3 fL Normal 81.0-99.0 [facility] Comment on above: Performed By: #### C BC #### [facility] [address] [place] [address] Dr. Jag Waldrop MONO # 0.3 103/ul Normal 0.3-0.8 [facility] Comment on above: Performed By: #### C BC #### [facility] [address] [address] [address] Jag Waldrop Monocytes/100 WBC (Bld) 6.8 % Normal 1.7-12.0 [facility] Comment on above: Performed By: #### C BC #### [facility] [address] [address] [address] Jag Waldrop NEUT # 2.6 103/ul Normal 1.4-6.5 [facility] Comment on above: Performed By: #### C BC #### [facility] [address] [address] [address] Jag Waldrop Neutrophils/100 WBC (Bld) 53.3 % Normal 43.0-75.0 [facility] Comment on above: Performed By: #### C BC #### [facility] [address] [place] [address] Dr. Jag Waldrop Platelet mean volume (Bld) [Entitic vol] 11.0 fL Normal 9.5-13.5 [facility] Comment on above: Performed By: #### C BC #### [facility] [address] [place] [address] Dr. Jag Waldrop PLT 230 103/ul Normal 150-450 [facility] Comment on above: Performed By: #### C BC #### [facility] [address] [place] [address] Dr. Jag Waldrop RBC 3.66 106/ul Critically low 4.20-5.40 [facility] Comment on above: Performed By: #### C BC #### [facility] [address] [place] [address] Dr. Jag Waldrop WBC 4.8 103/ul Normal 4.0-11.0 [facility] Comment on above: Performed By: #### C BC #### [facility] [address] [place] [address] Dr. Jag Waldrop FERRITINon 01-23-2022 Ferritin [Mass/Vol] 35.0 ng/mL Normal 8.0-252.0 [facility] Comment on above: Performed By: #### L IPID, BMP #### [facility] [address] [address] [address] Jag Waldrop IRONon 01-23-2022 Iron [Mass/Vol] 71.0 ug/dL Normal 50.0-170.0 [facility] Comment on above: Performed By: #### L IPID, BMP #### [facility] [address] [address] [address] Jag Waldrop LIPID PROFILEon 01-23-2022 CHOL-HDL RATIO NORM SEE BELOW Normal [facility] Comment on above: Result Comment: 3.3 - 4.4 LOW RISK 4.4 - 7.1 AVERAGE RISK 7.1 - 11.0 MODERATE RISK >11.0 HIGH RISK Performed By: #### L IPID, BMP #### [facility] [address] [place] [address] Dr. Jag Waldrop Cholesterol [Mass/Vol] 133 mg/dL Normal <=200 [facility] Comment on above: Performed By: #### L IPID, BMP #### [facility] [address] [place] [address] Dr. Jag Waldrop Cholesterol in HDL [Mass/Vol] 41 mg/dL Normal 40-60 [facility] Comment on above: Performed By: #### L IPID, BMP #### [facility] [address] [address] [address] Jag Waldrop Cholesterol in LDL [Mass/Vol] 70.8 mg/dL Normal [facility] Comment on above: Performed By: #### L IPID, BMP #### [facility] [address] [address] [address] Jag Waldrop Cholesterol.total/Payton sterol in HDL [Mass ratio] 3.2 {ratio} Normal [facility] Comment on above: Performed By: #### L IPID, BMP #### [facility] [address] [address] [address] Jag Waldrop HDL NORMAL > or = 60 mg/dl - LO W CARDIOVASCULAR RISK <40 mg/dl - HIGH CARDIOVASCULAR RISK Normal [facility] Comment on above: Performed By: #### L IPID, BMP #### [facility] [address] [address] [address] Jag Waldrop LDL CALC NORMAL SEE BELOW Normal [facility] Comment on above: Result Comment: <100 mg/dl OPTIMAL 100 - 129 mg/dl NEAR OR ABOVE OPTIMAL 130 - 159 mg/dl BORDERLINE HIGH 160 - 189 mg/dl HIGH >190 mg/dl VERY HIGH Performed By: #### L IPID, BMP #### [facility] [address] [address] [address] Jag Waldrop Triglyceride [Mass/Vol] 106 mg/dL Normal <=150 [facility] Comment on above: Performed By: #### L IPID, BMP #### [facility] [address] [address] [address] Jag Waldrop VLDL CALC 21.2 mg/dL Normal [facility] Comment on above: Performed By: #### L IPID, BMP #### [facility] [address] [place] [address] Dr. Jag Waldrop PROF CHEM 8 (BAS METB)on Anion gap [Moles/Vol] 18.2 mmol/L Normal [facility] Comment on above: Performed By: #### L IPID, BMP #### [facility] [address] [place] [address] Dr. Jag Waldrop Calcium [Mass/Vol] 9.3 mg/dL Normal 8.5-10.1 [facility] Comment on above: Performed By: #### L IPID, BMP #### [facility] [address] [place] [address] Dr. Jag Waldrop Chloride [Moles/Vol] 111 mmol/L Critically high 98-107 [facility] Comment on above: Performed By: #### L IPID, BMP #### [facility] [address] [place] [address] Dr. Jag Waldrop CO2 [Moles/Vol] 19.9 mmol/L Critically low 21.0-32.0 [facility] Comment on above: Performed By: #### L IPID, BMP #### [facility] [address] [address] [address] Jag Waldrop Creatinine [Mass/Vol] 1.27 mg/dL Critically high 0.55-1.02 [facility] Comment on above: Performed By: #### L IPID, BMP #### [facility] [address] [address] [address] Jag Waldrop EGFR-AF [place]IZ[place] 54 mL/min/1.73m2 Critically low >=60 [facility] Comment on above: Performed By: #### L IPID, BMP #### [facility] [address] [address] [address] Jag Waldrop EGFR-NON AF CITIZEN OF [place] 44 mL/min/1.73m2 Critically low >=60 [facility] Comment on above: Performed By: #### L IPID, BMP #### [facility] [address] [place] [address] Dr. Jag Waldrop Glucose [Mass/Vol] 129 mg/dL Critically high 74-106 [facility] Comment on above: Performed By: #### L IPID, BMP #### [facility] [address] [address] [address] Jag Waldrop Potassium [Moles/Vol] 6.1 mmol/L Critically high 3.5-5.1 [facility] Comment on above: Performed By: #### L IPID, BMP #### [facility] [address] [place] [address] Dr. Jag Waldrop Sodium [Moles/Vol] 142 mmol/L Normal 136-145 [facility] Comment on above: Performed By: #### L IPID, BMP #### [facility] [address] [address] [address] Jag Waldrop Urea nitrogen [Mass/Vol] 35.0 mg/dL Critically high 7.0-18.0 [facility] Comment on above: Performed By: #### L IPID, BMP #### [facility] [address] [place] [address] Dr. Jag Waldrop Urea nitrogen/Creatinine [Mass ratio] 27.6 mg/mg Normal [facility] Comment on above: Performed By: #### L IPID, BMP #### [facility] [address] [place] [address] Dr. Jag Waldrop VITAMIN B12on 01-23-2022 Cobalamin (Vitamin B12) [Mass/Vol] 267.0 pg/mL Normal 193.0-986.0 [facility] Comment on above: Performed By: #### L IPID, BMP #### [facility] [address] [place] [address] Dr. Jag Waldrop XR CSPINE 2_3 VIEWSon [...] mild degenerative changes. Electronically authenticated by: KATHY LOBATO Date: 2022-01-12 09:39 Normal [facility] BNPon 12-21-2021 Natriuretic peptide B (Bld) [Mass/Vol] 283.0 pg/mL Normal <=900.0 [facility] Comment on above: Performed By: #### P OCGLUC #### [facility] [address] [place] [address] Dr. Jag Waldrop CBC AUTO DIFFon 12-21-2021 BASO # 0.1 103/ul Normal 0.0-0.1 [facility] Comment on above: Performed By: #### L IPID, BMP #### [facility] [address] [place] [address] Dr. Jag Waldrop Basophils/100 WBC (Bld) 0.8 % Normal 0.2-2.0 [facility] Comment on above: Performed By: #### L IPID, BMP #### [facility] [address] [place] [address] Dr. Jag Waldrop EO # 0.3 103/ul Normal 0.0-0.7 [facility] Comment on above: Performed By: #### L IPID, BMP #### [facility] [address] [place] [address] Dr. Jag Waldrop Eosinophils/100 WBC (Bld) 3.8 % Normal 0.9-7.0 [facility] Comment on above: Performed By: #### L IPID, BMP #### [facility] [address] [place] [address] Dr. Jag Waldrop Erythrocyte distribution width (RBC) [Ratio] 13.2 % Normal 11.0-15.0 [facility] Comment on above: Performed By: #### L IPID, BMP #### [facility] [address] [place] [address] Dr. Jag Waldrop Hematocrit (Bld) [Volume fraction] 34.8 % Critically low 36.0-48.0 [facility] Comment on above: Performed By: #### L IPID, BMP #### [facility] [address] [place] [address] Dr. Jag Waldrop Hemoglobin (Bld) [Mass/Vol] 10.6 g/dL Critically low 12.0-16.0 [facility] Comment on above: Performed By: #### L IPID, BMP #### [facility] [address] [place] [address] Dr. Jag Waldrop IG # 0.02 10e3/ul Normal 0.00-0.03 [facility] Comment on above: Performed By: #### L IPID, BMP #### [facility] [address] [place] [address] Dr. Jag Waldrop IG % 0.3 % Normal 0.0-0.5 [facility] Comment on above: Performed By: #### L IPID, BMP #### [facility] [address] [place] [address] Dr. Jag Waldrop LYMPH # 1.7 103/ul Normal 1.2-3.8 [facility] Comment on above: Performed By: #### L IPID, BMP #### [facility] [address] [place] [address] Dr. Jag Waldrop Lymphocytes/100 WBC (Bld) 23.8 % Normal 20.5-60.0 [facility] Comment on above: Performed By: #### L IPID, BMP #### [facility] [address] [place] [address] Dr. Jag Waldrop MANUAL DIFF REQ NO Normal [facility] Comment on above: Performed By: #### L IPID, BMP #### [facility] [address] [place] [address] Dr. Jag Waldrop MCH (RBC) [Entitic mass] 29.1 pg Normal 26.7-34.0 [facility] Comment on above: Performed By: #### L IPID, BMP #### [facility] [address] [place] [address] Dr. Jag Waldrop MCHC (RBC) [Mass/Vol] 30.5 g/dL Normal 29.9-35.2 [facility] Comment on above: Performed By: #### L IPID, BMP #### [facility] [address] [place] [address] Dr. Jag Waldrop MCV (RBC) [Entitic vol] 95.6 fL Normal 81.0-99.0 [facility] Comment on above: Performed By: #### L IPID, BMP #### [facility] [address] [place] [address] Dr. Jag Waldrop MONO # 0.7 103/ul Normal 0.3-0.8 [facility] Comment on above: Performed By: #### L IPID, BMP #### [facility] [address] [place] [address] Dr. Jag Waldrop Monocytes/100 WBC (Bld) 9.3 % Normal 1.7-12.0 [facility] Comment on above: Performed By: #### L IPID, BMP #### [facility] [address] [place] [address] Dr. Jag Waldrop NEUT # 4.4 103/ul Normal 1.4-6.5 [facility] Comment on above: Performed By: #### L IPID, BMP #### [facility] [address] [place] [address] Dr. Jag Waldrop Neutrophils/100 WBC (Bld) 62.0 % Normal 43.0-75.0 [facility] Comment on above: Performed By: #### L IPID, BMP #### [facility] [address] [place] [address] Dr. Jag Waldrop Platelet mean volume (Bld) [Entitic vol] 11.5 fL Normal 9.5-13.5 [facility] Comment on above: Performed By: #### L IPID, BMP #### [facility] [address] [place] [address] Dr. Jag Waldrop PLT 235 103/ul Normal 150-450 [facility] Comment on above: Performed By: #### L IPID, BMP #### [facility] [address] [place] [address] Dr. Jag Waldrop RBC 3.64 106/ul Critically low 4.20-5.40 [facility] Comment on above: Performed By: #### L IPID, BMP #### [facility] [address] [place] [address] Dr. Jag Waldrop WBC 7.1 103/ul Normal 4.0-11.0 [facility] Comment on above: Performed By: #### L IPID, BMP #### [facility] [address] [place] [address] Dr. Jag Waldrop CRPon 12-21-2021 CRP 1.1 mg/dL Critically high <=1.0 [facility] Comment on above: Performed By: #### B MP #### [facility] [address] [place] [address] Dr. Jag Waldrop [facility] SARS-CoV-2 (COVID-19) RNA PRINCE+probe Ql (Unsp spec) Not detected Normal NOT DETECTED [facility] Comment on above: Result Comment: This test is not yet approved or cleared by the [place] FDA. When there are no FDA-approved or cleared tests available, and other criteria are met, FDA can make tests available under an emergency access mechanism called an Emergency Use Authorization (EUA). The EUA for this test is supported by the [place] of Health and Human Service's (HHS's) declaration [...] Performed By: #### L IPID, BMP #### [facility] [address] [place] [address] Dr. Jag Waldrop PROF CHEM 8 (BAS METB)on Anion gap [Moles/Vol] 13.3 mmol/L Normal [facility] Comment on above: Performed By: #### B MP #### [facility] [address] [place] [address] Dr. Jag Waldrop Calcium [Mass/Vol] 8.7 mg/dL Normal 8.5-10.1 [facility] Comment on above: Performed By: #### B MP #### [facility] [address] [place] [address] Dr. Jag Waldrop Chloride [Moles/Vol] 107 mmol/L Normal 98-107 [facility] Comment on above: Performed By: #### B MP #### [facility] [address] [place] [address] Dr. Jag Waldrop CO2 [Moles/Vol] 23.2 mmol/L Normal 21.0-32.0 [facility] Comment on above: Performed By: #### B MP #### [facility] [address] [place] [address] Dr. Jag Waldrop Creatinine [Mass/Vol] 1.55 mg/dL Critically high 0.55-1.02 [facility] Comment on above: Performed By: #### B MP #### [facility] [address] [place] [address] Dr. Jag Waldrop EGFR-AF CITIZEN OF [place] 43 mL/min/1.73m2 Critically low >=60 [facility] Comment on above: Performed By: #### B MP #### [facility] [address] [address] [address] Jag Waldrop EGFR-NON AF CITIZEN OF [place] 35 mL/min/1.73m2 Critically low >=60 [facility] Comment on above: Performed By: #### B MP #### [facility] [address] [address] [address] Jag Waldrop Glucose [Mass/Vol] 123 mg/dL Critically high 74-106 [facility] Comment on above: Performed By: #### B MP #### [facility] [address] [address] [address] Jag Waldrop Potassium [Moles/Vol] 4.5 mmol/L Normal 3.5-5.1 [facility] Comment on above: Performed By: #### B MP #### [facility] [address] [place] [address] Dr. Jag Waldrop Sodium [Moles/Vol] 139 mmol/L Normal 136-145 [facility] Comment on above: Performed By: #### B MP #### [facility] [address] [address] [address] Jag Waldrop Urea nitrogen [Mass/Vol] 36.0 mg/dL Critically high 7.0-18.0 [facility] Comment on above: Performed By: #### B MP #### [facility] [address] [address] [address] Jag Waldrop Urea nitrogen/Creatinine [Mass ratio] 23.2 mg/mg Normal [facility] Comment on above: Performed By: #### B MP #### [facility] [address] [place] [address] Dr. Jag Waldrop SED RATE [facility] 2021 SED RATE 26 mm/hr Normal <=30 [facility] Comment on above: Performed By: #### S EDR #### [facility] [address] [place] [address] Dr. Jag Waldrop XR CHEST 2 Von [...] by: ALEX ALLEN Date: 2021-12-21 18:35 Normal [facility] OVA AND PARASITE EXAMINATION on 12-06-2021 Ova + Parasite Exam Final report Normal [facility] Comment on above: Result Comment: Thes e results were obtained using wet preparation(s) and trichrome stained smear. This test does not include testing for Cryptosporidium parvum, Cyclospora, or Microsporidia. Performed By: #### L IPID, BMP #### [facility] [address] [place] [address] Dr. Jag Waldrop Result 1 Comment Normal [facility] Comment on above: Result Comment: No o va, cysts, or parasites seen. . One negative specimen does not rule out the possibility of a parasitic infection. Performed By: #### L IPID, BMP #### [facility] [address] [place] [address] Dr. Jag Waldrop STOOL CULTUREon 12-05-2021 Campylobacter Culture Final report Normal [facility] Comment on above: Performed By: #### C XSTOOL #### [facility] [address] [place] [address] Dr. Jag Waldrop E coli Shiga Toxin EIA Negative Normal Negative [facility] Comment on above: Performed By: #### C XSTOOL #### [facility] [address] [place] [address] Dr. Jag Waldrop Result 1 Comment Normal [facility] Comment on above: Result Comment: No S almonella or Shigella recovered. Performed By: #### C XSTOOL #### [facility] [address] [address] [address] Jag Waldrop Result Comment: No C ampylobacter species isolated. Salmonella/Shigella Screen Final report Normal [facility] Comment on above: Performed By: #### C XSTOOL #### [facility] [address] [address] [address] Jag Waldrop GI PANEL (PCR)on 11-30-2021 Adenovirus F 40/41 Not detected Normal NOT DETECTED [facility] Comment on above: Performed By: #### E RUR #### [facility] [address] [place] [address] Dr. Jag Waldrop Astrovirus Not detected Normal NOT DETECTED [facility] Comment on above: Performed By: #### E RUR #### [facility] [address] [place] [address] Dr. Jag Waldrop C. Diff toxin A/B Detected Critically abnormal NOT DETECTED [facility] Comment on above: Performed By: #### E RUR #### [facility] [address] [address] [address] Jag Waldrop Campylobacter Not detected Normal NOT DETECTED [facility] Comment on above: Performed By: #### E RUR #### [facility] [address] [place] [address] Dr. Jag Waldrop Cryptosporidium Not detected Normal NOT DETECTED [facility] Comment on above: Performed By: #### E RUR #### [facility] [address] [address] [address] Jag Waldrop Cyclos. Cayetanensis Not detected Normal NOT DETECTED [facility] Comment on above: Performed By: #### E RUR #### [facility] [address] [place] [address] Dr. Jag Waldrop E. Coli O157 Not Applicable Normal Not Applicable [facility] Comment on above: Performed By: #### E RUR #### [facility] [address] [address] [address] Jag Waldrop E. histolytica Not detected Normal NOT DETECTED [facility] Comment on above: Performed By: #### E RUR #### [facility] [address] [place] [address] Dr. Jag Waldrop EAEC Not detected Normal NOT DETECTED [facility] Comment on above: Performed By: #### E RUR #### [facility] [address] [place] [address] Dr. Jag Waldrop EIEC Not detected Normal NOT DETECTED [facility] Comment on above: Performed By: #### E RUR #### [facility] [address] [place] [address] Dr. Jag Waldrop EPEC Not detected Normal NOT DETECTED [facility] Comment on above: Performed By: #### E RUR #### [facility] [address] [place] [address] Dr. Jag Waldrop ETEC Not detected Normal NOT DETECTED [facility] Comment on above: Performed By: #### E RUR #### [facility] [address] [place] [address] Dr. Jag Hernandez Lamblia Not detected Normal NOT DETECTED [facility] Comment on above: Performed By: #### E RUR #### [facility] [address] [place] [address] Dr. Jag TANG CONTROLS PASSED Normal [facility] Comment on above: Performed By: #### E RUR #### [facility] [address] [place] [address] Dr. Jag LEONARD NIKHIL HEADER GI PANEL BACTERIA Normal [facility] Comment on above: Performed By: #### E RUR #### [facility] [address] [place] [address] Dr. Jag SANCHEZ ECOLI GI PANEL DIARRHEAGEN IC E.COLI / SHIGELLA Normal [facility] Comment on above: Performed By: #### E RUR #### [facility] [address] [place] [address] Dr. Jag SANCHEZ INFO SEE BELOW Normal [facility] Comment on above: Result Comment: EAEC - Enteroaggregative E. Coli EPEC- Enteropathogenic E. Coli ETEC- Enterotoxigenic E. Coli lt/st STEC- Shigella-like toxin-producing E. Coli stx1/stx2 EIEC- Shigella/Enteroinvasive E. Coli Performed By: #### E RUR #### [facility] [address] [place] [address] Dr. Jag SANCHEZ PARASITES GI PANEL PARASITES Normal [facility] Comment on above: Performed By: #### E RUR #### [facility] [address] [place] [address] Dr. Jag SANCHEZ VIRUS GI PANEL VIRUSES Normal [facility] Comment on above: Performed By: #### E RUR #### [facility] [address] [place] [address] Dr. Jag Waldrop Norovirus GI/GII Not detected Normal NOT DETECTED [facility] Comment on above: Performed By: #### E RUR #### [facility] [address] [place] [address] Dr. Jag Waldrop P. Shigelloides Not detected Normal NOT DETECTED [facility] Comment on above: Performed By: #### E RUR #### [facility] [address] [place] [address] Dr. Jag Waldrop Rotavirus A Not detected Normal NOT DETECTED [facility] Comment on above: Performed By: #### E RUR #### [facility] [address] [place] [address] Dr. Jag Waldrop Salmonella Not detected Normal NOT DETECTED [facility] Comment on above: Performed By: #### E RUR #### [facility] [address] [place] [address] Dr. Jag Waldrop Sapovirus Not detected Normal NOT DETECTED [facility] Comment on above: Performed By: #### E RUR #### [facility] [address] [place] [address] Dr. Jag Waldrop STEC Not detected Normal NOT DETECTED [facility] Comment on above: Performed By: #### E RUR #### [facility] [address] [place] [address] Dr. Jag Waldrop Vibrio Not detected Normal NOT DETECTED [facility] Comment on above: Performed By: #### E RUR #### [facility] [address] [place] [address] Dr. Jag Waldrop Vibrio Cholera Not detected Normal NOT DETECTED [facility] Comment on above: Performed By: #### E RUR #### [facility] [address] [place] [address] Dr. Jag Waldrop Y. Enterocolitica Not detected Normal NOT DETECTED [facility] Comment on above: Performed By: #### E RUR #### [facility] [address] [place] [address] Dr. Jag Waldrop OCC BLD IMMUNO SCREENon 11-14 OCCULT BLOOD Negative Normal NEGATIVE [facility] Comment on above: Performed By: #### L IPID, BMP #### [facility] [address] [place] [address] Dr. Jag Waldrop PROF CHEM 8 (BAS METB)on Anion gap [Moles/Vol] 15.5 mmol/L Normal [facility] Comment on above: Performed By: #### P OCGLUC #### [facility] [address] [place] [address] Dr. Jag Waldrop Calcium [Mass/Vol] 9.1 mg/dL Normal 8.5-10.1 [facility] Comment on above: Performed By: #### P OCGLUC #### [facility] [address] [place] [address] Dr. Jag Waldrop Chloride [Moles/Vol] 106 mmol/L Normal 98-107 [facility] Comment on above: Performed By: #### P OCGLUC #### [facility] [address] [place] [address] Dr. Jag Waldrop CO2 [Moles/Vol] 25.4 mmol/L Normal 21.0-32.0 [facility] Comment on above: Performed By: #### P OCGLUC #### [facility] [address] [place] [address] Dr. Jag Waldrop Creatinine [Mass/Vol] 1.18 mg/dL Critically high 0.55-1.02 [facility] Comment on above: Performed By: #### P OCGLUC #### [facility] [address] [address] [address] Jag Waldrop EGFR-AF [place]IZ[place] OF [place] 59 mL/min/1.73m2 Critically low >=60 [facility] Comment on above: Performed By: #### P OCGLUC #### [facility] [address] [address] [address] Jag Waldrop EGFR-NON AF CITIZEN OF [place] 48 mL/min/1.73m2 Critically low >=60 [facility] Comment on above: Performed By: #### P OCGLUC #### [facility] [address] [address] [address] Jag Waldrop Glucose [Mass/Vol] 141 mg/dL Critically high 74-106 [facility] Comment on above: Performed By: #### P OCGLUC #### [facility] [address] [address] [address] Jag Waldrop Potassium [Moles/Vol] 3.9 mmol/L Normal 3.5-5.1 [facility] Comment on above: Performed By: #### P OCGLUC #### [facility] [address] [address] [address] Jag Waldrop Sodium [Moles/Vol] 143 mmol/L Normal 136-145 [facility] Comment on above: Performed By: #### P OCGLUC #### [facility] [address] [address] [address] Jag Waldrop Urea nitrogen [Mass/Vol] 22.0 mg/dL Critically high 7.0-18.0 [facility] Comment on above: Performed By: #### P OCGLUC #### [facility] [address] [address] [address] Jag Waldrop Urea nitrogen/Creatinine [Mass ratio] 18.6 mg/mg Normal [facility] Comment on above: Performed By: #### P OCGLUC #### [facility] [address] [address] [address] Jag Waldrop XR KUB 1 VIEWon [...] by: ALEX ALLEN Date: 2021-10-29 09:01 Normal [facility] CULTURE URINEon 10-28-2021 CULTURE URINE Culture Observations : LIGHT GROWTH OF MIXED GENITAL SANDEE. NO POTENTIAL PATHOGENS SEEN. Normal [facility] Comment on above: Performed By: #### E RUR #### [facility] [address] [place] [address] Dr. Jag Waldrop GLYCOHEMOGLOBIN A1Con 2021 ADA RECOMMENDATION SEE BELOW Normal [facility] Comment on above: Result Comment: ADA RECOMMENDED LIMIT 4.0 - 6.0 ADA THERAPEUTIC TARGET < 7.0 ACTION SUGGESTED > 7.0 Performed By: #### E RUR #### [facility] [address] [address] [address] Jag Waldrop Glucose [Mass/Vol] 157 mg/dL Normal [facility] Comment on above: Performed By: #### E RUR #### [facility] [address] [place] [address] Dr. Jag Waldrop HbA1c (Bld) [Mass fraction] 7.1 % Critically high 4.5-6.2 [facility] Comment on above: Performed By: #### E RUR #### [facility] [address] [address] [address] Jag Waldrop LIPID PROFILEon 10-28-2021 CHOL-HDL RATIO NORM SEE BELOW Normal [facility] Comment on above: Result Comment: 3.3 - 4.4 LOW RISK 4.4 - 7.1 AVERAGE RISK 7.1 - 11.0 MODERATE RISK >11.0 HIGH RISK Performed By: #### P OCGLUC #### [facility] [address] [place] [address] Dr. Jag Waldrop Cholesterol [Mass/Vol] 150 mg/dL Normal <=200 [facility] Comment on above: Performed By: #### P OCGLUC #### [facility] [address] [address] [address] Jag Waldrop Cholesterol in HDL [Mass/Vol] 39 mg/dL Critically low 40-60 [facility] Comment on above: Performed By: #### P OCGLUC #### [facility] [address] [address] [address] Jag Waldrop Cholesterol in LDL [Mass/Vol] 82.6 mg/dL Normal [facility] Comment on above: Performed By: #### P OCGLUC #### [facility] [address] [address] [address] Jag Waldrop Cholesterol.total/Pay[place] sterol in HDL [Mass ratio] 3.8 {ratio} Normal [facility] Comment on above: Performed By: #### P OCGLUC #### [facility] [address] [address] [address] Jag Waldrop HDL NORMAL > or = 60 mg/dl - LO W CARDIOVASCULAR RISK <40 mg/dl - HIGH CARDIOVASCULAR RISK Normal [facility] Comment on above: Performed By: #### P OCGLUC #### [facility] [address] [address] [address] Jag Waldrop LDL CALC NORMAL SEE BELOW Normal [facility] Comment on above: Result Comment: <100 mg/dl OPTIMAL 100 - 129 mg/dl NEAR OR ABOVE OPTIMAL 130 - 159 mg/dl BORDERLINE HIGH 160 - 189 mg/dl HIGH >190 mg/dl VERY HIGH Performed By: #### P OCGLUC #### [facility] [address] [address] [address] Jag Waldrop Triglyceride [Mass/Vol] 142 mg/dL Normal <=150 [facility] Comment on above: Performed By: #### P OCGLUC #### [facility] [address] [address] [address] Jag Waldrop VLDL CALC 28.4 mg/dL Normal [facility] Comment on above: Performed By: #### P OCGLUC #### [facility] [address] [address] [address] Jag Waldrop PROF CHEM 8 (BAS METB)on Anion gap [Moles/Vol] 16.0 mmol/L Normal [facility] Comment on above: Performed By: #### P OCGLUC #### [facility] [address] [address] [address] Jag Waldrop Calcium [Mass/Vol] 8.7 mg/dL Normal 8.5-10.1 [facility] Comment on above: Performed By: #### P OCGLUC #### [facility] [address] [address] [address] Jag Waldrop Chloride [Moles/Vol] 108 mmol/L Critically high 98-107 [facility] Comment on above: Performed By: #### P OCGLUC #### [facility] [address] [address] [address] Jag Waldrop CO2 [Moles/Vol] 22.1 mmol/L Normal 21.0-32.0 [facility] Comment on above: Performed By: #### P OCGLUC #### [facility] [address] [address] [address] Jag Waldrop Creatinine [Mass/Vol] 1.72 mg/dL Critically high 0.55-1.02 [facility] Comment on above: Performed By: #### P OCGLUC #### [facility] [address] [address] [address] Jag Waldrop EGFR-AF CITIZ[place] 38 mL/min/1.73m2 Critically low >=60 [facility] Comment on above: Performed By: #### P OCGLUC #### [facility] [address] [address] [address] Jag Waldrop EGFR-NON AF CITIZEN [place] 31 mL/min/1.73m2 Critically low >=60 [facility] Comment on above: Performed By: #### P OCGLUC #### [facility] [address] [address] [address] Jag Waldrop Glucose [Mass/Vol] 144 mg/dL Critically high 74-106 [facility] Comment on above: Performed By: #### P OCGLUC #### [facility] [address] [address] [address] Jag Waldrop Potassium [Moles/Vol] 5.1 mmol/L Normal 3.5-5.1 [facility] Comment on above: Performed By: #### P OCGLUC #### [facility] [address] [address] [address] Jag Waldrop Sodium [Moles/Vol] 141 mmol/L Normal 136-145 [facility] Comment on above: Performed By: #### P OCGLUC #### [facility] [address] [address] [address] Jag Waldrop Urea nitrogen [Mass/Vol] 41.0 mg/dL Critically high 7.0-18.0 [facility] Comment on above: Performed By: #### P OCGLUC #### [facility] [address] [place] [address] Dr. Jag Waldrop Urea nitrogen/Creatinine [Mass ratio] 23.8 mg/mg Normal [facility] Comment on above: Performed By: #### P OCGLUC #### [facility] [address] [address] [address] Jag Waldrop UA (CLEAN/CATCH) STATISTICIAN/MICRO I F IND.on 10-28-2021 Bilirubin Ql (U) Negative Normal NEGATIVE [facility] Comment on above: Performed By: #### L IPID, BMP #### [facility] [address] [address] [address] Jag Waldrop Clarity (U) SL CLOUDY Abnormal CLEAR [facility] Comment on above: Performed By: #### L IPID, BMP #### [facility] [address] [address] [address] Jag Waldrop Color (U) LT. YELLOW Normal YELLOW [facility] Comment on above: Performed By: #### L IPID, BMP #### [facility] [address] [place] [address] Dr. Jag Waldrop Glucose Ql (U) Negative Normal NEGATIVE [facility] Comment on above: Performed By: #### L IPID, BMP #### [facility] [address] [place] [address] Dr. Jag Waldrop Hemoglobin Ql (U) TRACE-INTACT Abnormal NEGATIVE [facility] Comment on above: Performed By: #### L IPID, BMP #### [facility] [address] [place] [address] Dr. Jag Waldrop Ketones Ql (U) Negative Normal NEGATIVE [facility] Comment on above: Performed By: #### L IPID, BMP #### [facility] [address] [place] [address] Dr. Jag Waldrop LEUKOCYTES SMALL Abnormal NEGATIVE [facility] Comment on above: Performed By: #### L IPID, BMP #### [facility] [address] [place] [address] Dr. Jag Waldrop Nitrite Ql (U) Negative Normal NEGATIVE [facility] Comment on above: Performed By: #### L IPID, BMP #### [facility] [address] [place] [address] Dr. Jag Waldrop pH (U) 5.5 [pH] Normal 5-9 [facility] Comment on above: Performed By: #### L IPID, BMP #### [facility] [address] [place] [address] Dr. Jag Waldrop SPEC GRAVITY 1.020 Normal 1.005-<=1.[address] [place] [address] Comment on above: Performed By: #### L IPID, BMP #### [facility] [address] [place] [address] Dr. Jag Waldrop UA PROTEIN Negative Normal NEGATIVE/ TRACE [facility] Comment on above: Performed By: #### L IPID, BMP #### [facility] [address] [place] [address] Dr. Jag Waldrop UR MICRO IND INDICATED Normal [facility] Comment on above: Performed By: #### L IPID, BMP #### [facility] [address] [place] [address] Dr. Jag Waldrop Urobilinogen Qn (U) 0.2 {Chris'U}/dL Normal 0.2 - 1. 0 [facility] Comment on above: Performed By: #### L IPID, BMP #### [facility] [address] [place] [address] Dr. Jag Waldrop URINE MICROSCOPIC ONLYon BACTERIA TRACE Abnormal NONE SEEN [facility] Comment on above: Performed By: #### L IPID, BMP #### [facility] [address] [place] [address] Dr. Jag Waldrop Bacteria identified Cx Nom (U) INDICATED Normal [facility] Comment on above: Performed By: #### L IPID, BMP #### [facility] [address] [place] [address] Dr. Jag Waldrop CAST NONE SEEN Normal NONE SEEN [facility] Comment on above: Performed By: #### L IPID, BMP #### [facility] [address] [place] [address] Dr. Jag Waldrop Crystals LM Nom (Urine sed) NONE SEEN Normal NONE SEEN [facility] Comment on above: Performed By: #### L IPID, BMP #### [facility] [address] [place] [address] Dr. Jag Waldrop Epithelial cells LM Ql (Urine sed) RARE Normal NONE SEEN /RARE [facility] Comment on above: Performed By: #### L IPID, BMP #### [facility] [address] [place] [address] Dr. Jag Waldrop MUCOUS TRACE Abnormal NONE SEEN [facility] Comment on above: Performed By: #### L IPID, BMP #### [facility] [address] [place] [address] Dr. Jag Waldrop RBC 0-2 Normal 0-2 [facility] Comment on above: Performed By: #### L IPID, BMP #### [facility] [address] [place] [address] Dr. Jag Waldrop WBC 2-5 Abnormal NONE SEEN [facility] Comment on above: Performed By: #### L IPID, BMP #### [facility] [address] [place] [address] Dr. Jag Waldrop BNPon 10-02-2021 Natriuretic peptide B (Bld) [Mass/Vol] 52.0 pg/mL Normal <=900.0 [facility] Comment on above: Performed By: #### L IPID, BMP #### [facility] [address] [place] [address] Dr. Jag Waldrop CBC AUTO DIFFon 10-02-2021 BASO # 0.1 103/ul Normal 0.0-0.1 [facility] Comment on above: Performed By: #### P OCGLUC #### [facility] [address] [place] [address] Dr. Jag Waldrop Basophils/100 WBC (Bld) 0.8 % Normal 0.2-2.0 [facility] Comment on above: Performed By: #### P OCGLUC #### [facility] [address] [place] [address] Dr. Jag Waldrop EO # 0.2 103/ul Normal 0.0-0.7 [facility] Comment on above: Performed By: #### P OCGLUC #### [facility] [address] [place] [address] Dr. Jag Waldrop Eosinophils/100 WBC (Bld) 3.0 % Normal 0.9-7.0 [facility] Comment on above: Performed By: #### P OCGLUC #### [facility] [address] [place] [address] Dr. Jag Waldrop Erythrocyte distribution width (RBC) [Ratio] 14.2 % Normal 11.0-15.0 [facility] Comment on above: Performed By: #### P OCGLUC #### [facility] [address] [place] [address] Dr. Jag Waldrop Hematocrit (Bld) [Volume fraction] 35.9 % Critically low 36.0-48.0 [facility] Comment on above: Performed By: #### P OCGLUC #### [facility] [address] [place] [address] Dr. Jag Waldrop Hemoglobin (Bld) [Mass/Vol] 11.0 g/dL Critically low 12.0-16.0 [facility] Comment on above: Performed By: #### P OCGLUC #### [facility] [address] [address] [address] Jag Waldrop IG # 0.03 10e3/ul Normal 0.00-0.03 [facility] Comment on above: Performed By: #### P OCGLUC #### [facility] [address] [address] [address] Jag Waldrop IG % 0.4 % Normal 0.0-0.5 [facility] Comment on above: Performed By: #### P OCGLUC #### [facility] [address] [address] [address] Jag Waldrop LYMPH # 2.8 103/ul Normal 1.2-3.8 [facility] Comment on above: Performed By: #### P OCGLUC #### [facility] [address] [address] [address] Jag Waldrop Lymphocytes/100 WBC (Bld) 37.9 % Normal 20.5-60.0 [facility] Comment on above: Performed By: #### P OCGLUC #### [facility] [address] [address] [address] Jag Waldrop MANUAL DIFF REQ NO Normal [facility] Comment on above: Performed By: #### P OCGLUC #### [facility] [address] [place] [address] Dr. Jag Waldrop MCH (RBC) [Entitic mass] 28.7 pg Normal 26.7-34.0 [facility] Comment on above: Performed By: #### P OCGLUC #### [facility] [address] [address] [address] Jag Waldrop MCHC (RBC) [Mass/Vol] 30.6 g/dL Normal 29.9-35.2 [facility] Comment on above: Performed By: #### P OCGLUC #### [facility] [address] [place] [address] Dr. Jag Waldrop MCV (RBC) [Entitic vol] 93.7 fL Normal 81.0-99.0 [facility] Comment on above: Performed By: #### P OCGLUC #### [facility] [address] [address] [address] Jag Waldrop MONO # 0.5 103/ul Normal 0.3-0.8 [facility] Comment on above: Performed By: #### P OCGLUC #### [facility] [address] [address] [address] Jag Waldrop Monocytes/100 WBC (Bld) 7.4 % Normal 1.7-12.0 [facility] Comment on above: Performed By: #### P OCGLUC #### [facility] [address] [address] [address] Jag Waldrop NEUT # 3.7 103/ul Normal 1.4-6.5 [facility] Comment on above: Performed By: #### P OCGLUC #### [facility] [address] [place] [address] Dr. Jag Waldrop Neutrophils/100 WBC (Bld) 50.5 % Normal 43.0-75.0 [facility] Comment on above: Performed By: #### P OCGLUC #### [facility] [address] [place] [address] Dr. Jag Waldrop Platelet mean volume (Bld) [Entitic vol] 10.2 fL Normal 9.5-13.5 [facility] Comment on above: Performed By: #### P OCGLUC #### [facility] [address] [place] [address] Dr. Jag Waldrop PLT 261 103/ul Normal 150-450 [facility] Comment on above: Performed By: #### P OCGLUC #### [facility] [address] [place] [address] Dr. Jag Waldrop RBC 3.83 106/ul Critically low 4.20-5.40 [facility] Comment on above: Performed By: #### P OCGLUC #### [facility] [address] [place] [address] Dr. Jag Waldrop WBC 7.3 103/ul Normal 4.0-11.0 [facility] Comment on above: Performed By: #### P OCGLUC #### [facility] [address] [place] [address] Dr. Jag Waldrop POINT OF CARE GLUCOSEon 09-14 Glucose [Mass/Vol] 156 mg/dL Critically high 74-106 [facility] Comment on above: Performed By: #### P OCGLUC #### [facility] [address] [address] [address] Jag Waldrop Glucose [Mass/Vol] 304 mg/dL Critically high 74-106 [facility] Comment on above: Performed By: #### P OCGLUC #### [facility] [address] [address] [address] Jag Waldrop Glucose [Mass/Vol] 77 mg/dL Normal 74-106 [facility] Comment on above: Performed By: #### E RUR #### [facility] [address] [address] [address] Jag Waldrop Glucose [Mass/Vol] 136 mg/dL Critically high 74-106 [facility] Comment on above: Performed By: #### E RUR #### [facility] [address] [address] [address] Jag Waldrop Glucose [Mass/Vol] 73 mg/dL Critically low 74-106 [facility] Comment on above: Performed By: #### E RUR #### [facility] [address] [address] [address] Jag Waldrop PROF CHEM 8 (BAS METB)on Anion gap [Moles/Vol] 15.5 mmol/L Normal [facility] Comment on above: Performed By: #### P OCGLUC #### [facility] [address] [address] [address] Jag Waldrop Calcium [Mass/Vol] 8.3 mg/dL Critically low 8.5-10.1 [facility] Comment on above: Performed By: #### P OCGLUC #### [facility] [address] [address] [address] Jag Waldrop Chloride [Moles/Vol] 108 mmol/L Critically high 98-107 [facility] Comment on above: Performed By: #### P OCGLUC #### [facility] [address] [address] [address] Jag Waldrop CO2 [Moles/Vol] 18.9 mmol/L Critically low 21.0-32.0 [facility] Comment on above: Performed By: #### P OCGLUC #### [facility] [address] [address] [address] Jag Waldrop Creatinine [Mass/Vol] 1.43 mg/dL Critically high 0.55-1.02 [facility] Comment on above: Performed By: #### P OCGLUC #### [facility] [address] [address] [address] Jag Waldrop EGFR-AF [place]IZ[place] 47 mL/min/1.73m2 Critically low >=60 [facility] Comment on above: Performed By: #### P OCGLUC #### [facility] [address] [address] [address] Jag Waldrop EGFR-NON AF [place]IZ[place] OF [place] 39 mL/min/1.73m2 Critically low >=60 [facility] Comment on above: Performed By: #### P OCGLUC #### [facility] [address] [address] [address] Jag Waldrop Glucose [Mass/Vol] 269 mg/dL Critically high 74-106 [facility] Comment on above: Performed By: #### P OCGLUC #### [facility] [address] [address] [address] Jag Waldrop Potassium [Moles/Vol] 5.4 mmol/L Critically high 3.5-5.1 [facility] Comment on above: Performed By: #### P OCGLUC #### [facility] [address] [address] [address] Jag Waldrop Sodium [Moles/Vol] 137 mmol/L Normal 136-145 [facility] Comment on above: Performed By: #### P OCGLUC #### [facility] [address] [address] [address] Jag Waldrop Urea nitrogen [Mass/Vol] 40.0 mg/dL Critically high 7.0-18.0 [facility] Comment on above: Performed By: #### P OCGLUC #### [facility] [address] [address] [address] Jag Waldrop Urea nitrogen/Creatinine [Mass ratio] 28.0 mg/mg Normal [facility] Comment on above: Performed By: #### P OCGLUC #### [facility] [address] [address] [address] Jag Waldrop Anion gap [Moles/Vol] 14.0 mmol/L Normal [facility] Comment on above: Performed By: #### E RUR #### [facility] [address] [address] [address] Jag Waldrop Calcium [Mass/Vol] 8.9 mg/dL Normal 8.5-10.1 [facility] Comment on above: Performed By: #### E RUR #### [facility] [address] [address] [address] Jag Waldrop Chloride [Moles/Vol] 110 mmol/L Critically high 98-107 [facility] Comment on above: Performed By: #### E RUR #### [facility] [address] [address] [address] Jag Waldrop CO2 [Moles/Vol] 21.1 mmol/L Normal 21.0-32.0 [facility] Comment on above: Performed By: #### E RUR #### [facility] [address] [address] [address] Jag Waldrop Creatinine [Mass/Vol] 1.32 mg/dL Critically high 0.55-1.02 [facility] Comment on above: Performed By: #### E RUR #### [facility] [address] [address] [address] Jag Waldrop EGFR-AF [place]IZ[place] OF [place] 52 mL/min/1.73m2 Critically low >=60 [facility] Comment on above: Performed By: #### E RUR #### [facility] [address] [address] [address] Jag Waldrop EGFR-NON AF CITIZ[place] OF [place] 43 mL/min/1.73m2 Critically low >=60 [facility] Comment on above: Performed By: #### E RUR #### [facility] [address] [address] [address] Jag Waldrop Glucose [Mass/Vol] 79 mg/dL Normal 74-106 [facility] Comment on above: Performed By: #### E RUR #### [facility] [address] [address] [address] Jag Waldrop Potassium [Moles/Vol] 6.1 mmol/L Critically high 3.5-5.1 [facility] Comment on above: Result Comment: Test Repeated. Critical Value Verified Performed By: #### E RUR #### [facility] [address] [address] [address] Jag Waldrop Sodium [Moles/Vol] 140 mmol/L Normal 136-145 [facility] Comment on above: Performed By: #### E RUR #### [facility] [address] [address] [address] Jag Waldrop Urea nitrogen [Mass/Vol] 45.0 mg/dL Critically high 7.0-18.0 [facility] Comment on above: Performed By: #### E RUR #### [facility] [address] [address] [address] Jag Waldrop Urea nitrogen/Creatinine [Mass ratio] 34.1 mg/mg Normal [facility] Comment on above: Performed By: #### E RUR #### [facility] [address] [address] [address] Jag Waldrop BASIC METABOLIC PANELon 08-14 Calcium [Mass/Vol] 8.9 mg/dL Normal 8.6-10.3 [facility] Comment on above: Order Comment: No: D o not add to previous draw Performed By: #### [id number] #### [facility] [address] [place] [address], [facility] Chloride [Moles/Vol] 105 mmol/L Normal 98-107 [facility] Comment on above: Order Comment: No: D o not add to previous draw Performed By: #### [id number] #### [facility] [address] [place] [address], [place] CO2 [Moles/Vol] 26 mmol/L Normal 21-31 The [facility] Comment on above: Order Comment: No: D o not add to previous draw Performed By: #### 5 610, 35798 #### [facility] [address] [place] [address], [place] Creatinine [Mass/Vol] 0.99 mg/dL Normal 0.60-1.20 [facility] Comment on above: Order Comment: No: D o not add to previous draw Performed By: #### 5 610, 36081 #### [facility] [address] [place] [address], [place] GFR/1.73 sq M predicted among blacks MDRD (S/P/Bld) [Vol rate/Area] mL/min/{1.73_m2} Normal >60 The [facility] Comment on above: Order Comment: No: D o not add to previous draw Performed By: #### 5 610, 41892 #### [facility] [address] [place] [address], [place] GFR/1.73 sq M predicted among non-blacks MDRD (S/P/Bld) [Vol rate/Area] mL/min/{1.73_m2} Normal >60 The [facility] Comment on above: Order Comment: No: D o not add to previous draw Performed By: #### 5 610, 64649 #### [facility] [address] [place] [address], [place] Glucose [Mass/Vol] 145 mg/dL High 70-100 The [facility] Comment on above: Order Comment: No: D o not add to previous draw Performed By: #### 5 610, 03850 #### [facility] [address] [place] [address], [place] Potassium [Moles/Vol] 3.7 mmol/L Normal 3.5-5.1 The [facility] Comment on above: Order Comment: No: D o not add to previous draw Performed By: #### 5 610, 54584 #### [facility] [address] [facility] [place] [address], [facility] Sodium [Moles/Vol] 139 mmol/L Normal 136-145 The [facility] Comment on above: Order Comment: No: D o not add to previous draw Performed By: #### 5 610, 06954 #### [facility] [address] [facility]. [address] Urea nitrogen [Mass/Vol] 26 mg/dL High 7-25 The [facility] Comment on above: Order Comment: No: D o not add to previous draw Performed By: #### 5 610, 57037 #### [facility] [address] [facility] [place] [address], [facility] CBC W/DIFFon 08-25-2018 ABS BASOPHILS 0.0 10*3/uL Normal 0.0-0.2 [facility] Comment on above: Order Comment: No: D o not add to previous draw Performed By: #### 5 610, 61561 #### [facility] [address] [facility]. [address] ABS IMM GRANS 0.0 10*3/uL Normal 0.0-0.2 The [facility] Comment on above: Order Comment: No: D o not add to previous draw Performed By: #### 5 610, 75095 #### [facility] [address] [facility] [place] [address], [facility] ABS NEUTROPHILS 2.3 10*3/uL Normal 1.6-7.6 The [facility] Comment on above: Order Comment: No: D o not add to previous draw Performed By: #### 5 6101, 95283 #### [facility] [address] [facility] [place] [address], [facility] Basophils/100 WBC (Bld) 0.3 % Normal 0.0-1.0 T [facility] Comment on above: Order Comment: No: D o not add to previous draw Performed By: #### 5 610, 48257 #### [facility] [address] [place] [address], [facility] Eosinophils (Bld) [#/Vol] 0.0 10*3/uL Normal 0.0-0.5 The [facility] Comment on above: Order Comment: No: D o not add to previous draw Performed By: #### 5 6100, 95983 #### [facility] [address] [place] [address], [facility] Eosinophils/100 WBC (Bld) 0.0 % Normal 0.0-6.0 The [facility] Comment on above: Order Comment: No: D o not add to previous draw Performed By: #### 5 6100, 88808 #### [facility] [address] [place] [address], [facility] Erythrocyte distribution width (RBC) [Ratio] 13.3 % Normal 11.5-15.0 The [facility] Comment on above: Order Comment: No: D o not add to previous draw Performed By: #### 5 6100, 13776 #### [facility] [address] [place] [address], [facility] Hematocrit (Bld) [Volume fraction] 37.7 % Normal 36.0-45.0 The [facility] Comment on above: Order Comment: No: D o not add to previous draw Performed By: #### 5 610, 31069 #### [facility] [address] [place] [address], [facility] Hemoglobin (Bld) [Mass/Vol] 12.1 g/dL Normal 12.0-15.0 The [facility] Comment on above: Order Comment: No: D o not add to previous draw Performed By: #### 5 610, 30424 #### [facility] [address] [place] [id number], [facility] IMMATURE GRANS 0.2 % Normal 0.0-1.0 The [facility] Comment on above: Order Comment: No: D o not add to previous draw Performed By: #### 5 6100, 76637 #### [facility] [address] [place] [id number], [facility] Lymphocytes (Bld) [#/Vol] 3.0 10*3/uL Normal 1.2-4.0 The [facility] Comment on above: Order Comment: No: D o not add to previous draw Performed By: #### 5 6100, 45218 #### [facility] [address] [place] [id number], [place] Lymphocytes/100 WBC (Bld) 52.0 % High 20.0-45.0 The [facility] Comment on above: Order Comment: No: D o not add to previous draw Performed By: #### 5 6100, 76094 #### [facility] [address] [place] [id number], [facility] MCH (RBC) [Entitic mass] 28.7 pg Normal 27.0-33.0 The [facility] Comment on above: Order Comment: No: D o not add to previous draw Performed By: #### 5 6100, 21834 #### [facility] [address] [place] [id number], [place] MCHC (RBC) [Mass/Vol] 32.1 g/dL Normal 32.0-35.0 The [facility] Comment on above: Order Comment: No: D o not add to previous draw Performed By: #### 5 6100, 74948 #### [facility] [address] [place] [address], [place] MCV (RBC) [Entitic vol] 89.3 fL Normal 82.0-98.0 T [facility] Comment on above: Order Comment: No: D o not add to previous draw Performed By: #### 5 6100, 64166 #### [facility] [address] [place] [address], [place] Monocytes (Bld) [#/Vol] 0.5 10*3/uL Normal 0.1-1.0 The [facility] Comment on above: Order Comment: No: D o not add to previous draw Performed By: #### 5 610, 29444 #### [facility] [address] [place] [address], [place] MONOS 7.9 % Normal 5.0-12.0 The [facility] Comment on above: Order Comment: No: D o not add to previous draw Performed By: #### 5 6100, 99294 #### [facility] [address] [place] [id number], [facility] Neutrophils/100 WBC (Bld) 39.6 % Low 40.0-72.0 The [facility] Comment on above: Order Comment: No: D o not add to previous draw Performed By: #### 5 6100, 31053 #### [facility] [address] [place] [id number], [facility] Nucleated RBC/100 WBC (Bld) [Ratio] 0 % Normal 0-0 The [facility] Comment on above: Order Comment: No: D o not add to previous draw Performed By: #### 5 6100, 64755 #### [facility] [address] [place] [address], [place] PLAT CNT 236 10*3/uL Normal 150-400 The [facility] Comment on above: Order Comment: No: D o not add to previous draw Performed By: #### 5 6100, 49227 #### [facility] [address] [place] [address], [place] RBC (Bld) [#/Vol] 4.22 10*6/uL Normal 3.80-5.00 The [facility] Comment on above: Order Comment: No: D o not add to previous draw Performed By: #### 5 6100, 31328 #### [facility] [address] [place] [address], [place] WBC (Bld) [#/Vol] 5.85 10*3/uL Normal 4.00-10.60 The [facility] Comment on above: Order Comment: No: D o not add to previous draw Performed By: #### 5 6101, 29866 #### [facility] [address] POC GLUCOSE LABon 08-25-2018 Glucose [Mass/Vol] 180 mg/dL High 70-100 The [facility] Comment on above: Performed By: #### 5 6101, 80789 #### [facility] [address] [place] [address], [facility] Glucose [Mass/Vol] 129 mg/dL High 70-100 The [facility] Comment on above: Performed By: #### 5 610, 85556 #### [facility] [address] [place] [address], [facility] Glucose [Mass/Vol] 132 mg/dL High 70-100 The [facility] Comment on above: Performed By: #### 5 0608 #### [facility] [address] UFH HEPARIN ASSAYon 08-26-19 19 UNFRACTIONATED HEPARIN <0.10 Critically low 0.30-0.70 [facility] Comment on above: Result Comment: Betty roxaban and Apixaban will interfere with the anti Xa assay used to monitor UFH and LMWH. RESULTS CHECKED AND CALLED. ACCURATELY READ BACK BY JANENE ZAMARRIPA RN AT 0554 Performed By: #### 5 6101, 16290 #### [facility] [address] BASIC METABOLIC PANELon 08-14 Calcium [Mass/Vol] 8.5 mg/dL Low 8.6-10.3 The [facility] Comment on above: Order Comment: No: D o not add to previous draw Performed By: #### 5 0608 #### [facility] [address] [place] [address], [facility] Chloride [Moles/Vol] 104 mmol/L Normal 98-107 The [facility] Comment on above: Order Comment: No: D o not add to previous draw Performed By: #### 5 0608 #### [facility] [address] [place] [address], [place] CO2 [Moles/Vol] 27 mmol/L Normal 21-31 The [facility] Comment on above: Order Comment: No: D o not add to previous draw Performed By: #### 5 0608 #### [facility] [address] [place] [address], [place] Creatinine [Mass/Vol] 1.13 mg/dL Normal 0.60-1.20 The [facility] Comment on above: Order Comment: No: D o not add to previous draw Performed By: #### 5 0608 #### [facility] [address] [place] [address], [place] GFR/1.73 sq M predicted among blacks MDRD (S/P/Bld) [Vol rate/Area] mL/min/{1.73_m2} Normal >60 The [facility] Comment on above: Order Comment: No: D o not add to previous draw Performed By: #### 5 0608 #### [facility] [address] [place] [address], [place] GFR/1.73 sq M predicted among non-blacks MDRD (S/P/Bld) [Vol rate/Area] 52 ml/min/1.73sq m Abnormal >60 The [facility] Comment on above: Order Comment: No: D o not add to previous draw Performed By: #### 5 0608 #### [facility] [address] [place] [address], [place] Glucose [Mass/Vol] 131 mg/dL High 70-100 The [facility] Comment on above: Order Comment: No: D o not add to previous draw Performed By: #### 5 0608 #### [facility] [address] [place] [address], [facility] Potassium [Moles/Vol] 3.9 mmol/L Normal 3.5-5.1 The [facility] Comment on above: Order Comment: No: D o not add to previous draw Performed By: #### 5 0608 #### [facility] [address] [place] [address], [place] Sodium [Moles/Vol] 141 mmol/L Normal 136-145 The [facility] Comment on above: Order Comment: No: D o not add to previous draw Performed By: #### 5 0608 #### [facility] [address] [place] [address], [facility] Urea nitrogen [Mass/Vol] 28 mg/dL High 7-25 The [facility] Comment on above: Order Comment: No: D o not add to previous draw Performed By: #### 5 0608 #### [facility] [address] [place] [address], [facility] CBC COMPLETE BLOOD COUNTon 0 - Erythrocyte distribution width (RBC) [Ratio] 13.5 % Normal 11.5-15.0 The [facility] Comment on above: Order Comment: No: D o not add to previous draw Performed By: #### 5 0608 #### [facility] [address] [place] [address], [facility] Hematocrit (Bld) [Volume fraction] 37.1 % Normal 36.0-45.0 The [facility] Comment on above: Order Comment: No: D o not add to previous draw Performed By: #### 5 0608 #### [facility] [address] [place] [address], [facility] Hemoglobin (Bld) [Mass/Vol] 12.2 g/dL Normal 12.0-15.0 The [facility] Comment on above: Order Comment: No: D o not add to previous draw Performed By: #### 5 0608 #### [facility] [address] [place] [address], [facility] MCH (RBC) [Entitic mass] 28.8 pg Normal 27.0-33.0 The [facility] Comment on above: Order Comment: No: D o not add to previous draw Performed By: #### 5 0608 #### [facility] [address] [place] [id number], [facility] MCHC (RBC) [Mass/Vol] 32.9 g/dL Normal 32.0-35.0 The [facility] Comment on above: Order Comment: No: D o not add to previous draw Performed By: #### 5 0608 #### [facility] [address] [place] [address], [facility] MCV (RBC) [Entitic vol] 87.7 fL Normal 82.0-98.0 T he [facility] Comment on above: Order Comment: No: D o not add to previous draw Performed By: #### 5 0608 #### [facility] [address] [place] [address], [facility] Nucleated RBC/100 WBC (Bld) [Ratio] 0 % Normal 0-0 The [facility] Comment on above: Order Comment: No: D o not add to previous draw Performed By: #### 5 0608 #### [facility] [address] [facility] [place] [address], [facility] PLAT CNT 251 10*3/uL Normal 150-400 The [facility] Comment on above: Order Comment: No: D o not add to previous draw Performed By: #### 5 0608 #### [facility] [address] [place] [address], [facility] RBC (Bld) [#/Vol] 4.23 10*6/uL Normal 3.80-5.00 The [facility] Comment on above: Order Comment: No: D o not add to previous draw Performed By: #### 5 0608 #### [facility] [address] WBC (Bld) [#/Vol] 8.42 10*3/uL Normal 4.00-10.60 The [facility] Comment on above: Order Comment: No: D o not add to previous draw Performed By: #### 5 0608 #### [facility] [address] Cardiovascular Lab Reporton 08-24-2018 Cardiovascular Lab Report [facility] Patient Name: Sahra Sherly [facility] A MR #: [id number] Department of Physician: Marshall Torres M.D. Division of Service Date: 08/23/2018 Cardiology Birthdate: 1970 Adult Cardiovascular Room #: 3AB [id number] [facility] [address] [place] [address] Cardiovascular Laboratory Report FINAL IMPRESSION: 1. Mild [...] 5. Follow up with me in the [facility] post discharge. 6. Further recommendations deferred to [...] the left radial artery was obtained. A 6-L[place] Glidesheath was inserted without difficulty. Bilateral selective [...] 30% stenosis adjacent to a prominent septal mixer tender. There are luminal irregularities throughout the remainder [...] Loreto/Tk Godoy M.D. Date Trans: 08/24/2018 06:37 Yessy [id number] cc: Geovanni Brunner D.O. [address] [place] [address] Normal The [facility] HIP RIGHT 1 OR 2 VWS WITH PE LVISon 08-24-2018 HIP RIGHT 1 OR 2 VWS WITH PELVIS [facility] Department of Radiology [address] [place] [id number] ======== Patient Name: SHERLY HUMPHREYS : 1970 Sex: F Age: Race: White Pt. Location: [address] [place] [address] Patient Status: D Ordered Date: 08/24/2018 12:30:00 PM Completed Date: 08/24/2018 02:52 PM Requesting Provider: PENG MERINO Attending Provider: PENG MERINO Report Copy To: Signs & Symptoms: Pain ( specify Location) History: Patient history not available Comments: R/O DJD Exam: HIP RIGHT 1 OR 2 VWS WITH PELVIS ======== HIP RIGHT 1 OR 2 VWS WITH [...] findings. Electronically signed by:Kristy Jones. Transcribed by: [email or web address], User Resident: [email or web address] Electronically Signed by: KRISTY JONES @ 08/25/2018 08:05 PM I personally read this/these film(s) with this resident Normal The [facility] Comment on above: Order Comment: No: D o not add to previous draw POC GLUCOSE LABon 08-24-2018 Glucose [Mass/Vol] 125 mg/dL High 70-100 The [facility] Comment on above: Performed By: #### 5 0608 #### [facility] [address] [place] [address], [facility] Glucose [Mass/Vol] 150 mg/dL High 70-100 The [facility] Comment on above: Performed By: #### 5 0608 #### [facility] [address] [place] [address], [facility] Glucose [Mass/Vol] 119 mg/dL High 70-100 [facility] Comment on above: Performed By: #### 5 0608 #### [facility] [address] [facility] UFH HEPARIN ASSAYon 08-25-19 19 UNFRACTIONATED HEPARIN <0.10 Critically low 0.30-0.70 [facility] Comment on above: Result Comment: Betty roxaban and Apixaban will interfere with the anti Xa assay used to monitor UFH and LMWH. RESULTS CHECKED AND CALLED. ACCURATELY READ BACK BY JANENE ZAMARRIPA RN AT 0732 Performed By: #### 5 0608 #### [facility] [address] [place] [address], [facility] APTTon 08-23-2018 aPTT Coag (Bld) [Time] 38.8 s High 25.0-35.0 Th e [facility] Comment on above: Order Comment: No: [...] THIS PURPOSE. Performed By: #### 5 6101, 02505 #### [facility] [address] CBC COMPLETE BLOOD COUNTon 08-23-2018 Erythrocyte distribution width (RBC) [Ratio] 13.3 % Normal 11.5-15.0 The [facility] Comment on above: Order Comment: No: D o not add to previous draw Performed By: #### 5 0608 #### [facility] [address] [place] [address], [facility] Hematocrit (Bld) [Volume fraction] 41.4 % Normal 36.0-45.0 The [facility] Comment on above: Order Comment: No: D o not add to previous draw Performed By: #### 5 0608 #### [facility] [address] [place] [address], [facility] Hemoglobin (Bld) [Mass/Vol] 13.8 g/dL Normal 12.0-15.0 The [facility] Comment on above: Order Comment: No: D o not add to previous draw Performed By: #### 5 0608 #### [facility] [address] [place] [address], [facility] MCH (RBC) [Entitic mass] 29.0 pg Normal 27.0-33.0 The [facility] Comment on above: Order Comment: No: D o not add to previous draw Performed By: #### 5 0608 #### [facility] [address] [place] [address], [facility] MCHC (RBC) [Mass/Vol] 33.3 g/dL Normal 32.0-35.0 The [facility] Comment on above: Order Comment: No: D o not add to previous draw Performed By: #### 5 0608 #### [facility] [address] [place] [id number], [facility] MCV (RBC) [Entitic vol] 87.0 fL Normal 82.0-98.0 T ronald [facility] Comment on above: Order Comment: No: D o not add to previous draw Performed By: #### 5 0608 #### [facility] [address] [facility] [place] [address], [facility] Nucleated RBC/100 WBC (Bld) [Ratio] 0 % Normal 0-0 The [facility] Comment on above: Order Comment: No: D o not add to previous draw Performed By: #### 5 0608 #### [facility] [address] [place] [address], [facility] PLAT CNT 293 10*3/uL Normal 150-400 The [facility] Comment on above: Order Comment: No: D o not add to previous draw Performed By: #### 5 0608 #### [facility] [address] [facility] [place] [address], [facility] RBC (Bld) [#/Vol] 4.76 10*6/uL Normal 3.80-5.00 The [facility] Comment on above: Order Comment: No: D o not add to previous draw Performed By: #### 5 0608 #### [facility] [address] [facility] [place] [address], [facility] WBC (Bld) [#/Vol] 10.48 10*3/uL Normal 4.00-10.60 The [facility] Comment on above: Order Comment: No: D o not add to previous draw Performed By: #### 5 0608 #### [facility] [address] History and Physicalon 08-23 History and Physical MR#: [id number] [facility] Pt. Name: Sherly Humphreys Admitted: 08/23/2018 Date of : 1970 Attending Physician: Nini Valente MD Room #: 3AB [id number] Discharge Date: HISTORY AND PHYSICAL CHIEF COMPLAINT: [...] she went to the emergency department in [facility]. Initial evaluation included troponin and EKG, which were negative. The patient was started on nitroglycerin patch. She experienced some relief after starting the nitroglycerin patch. Her pain went down from 8 to 6/10. Given her significant cardiac history, the patient was transferred to [facility] for further evaluation. The patient [...] artery disease status post stent in 2009, congestive heart failure with preserved ejection fraction, [...] with no ST-T wave changes. Troponin from [facility] was 0.01. Pending troponin in our [...] A Nini Valente MD Date Dict: 08/23/2018/05:46 Amanda/Nini Valente MD Date Trans: 08/23/2018 06:27 A/yadira [id number] Normal The [facility] POC GLUCOSE LABon 08-23-2018 Glucose [Mass/Vol] 101 mg/dL High 70-100 The [facility] Comment on above: Performed By: #### 5 0608 #### [facility] [address] [place] [address], [facility] Glucose [Mass/Vol] 96 mg/dL Normal 70-100 The [facility] Comment on above: Performed By: #### 5 0608 #### [facility] [address] [place] [address], [facility] Glucose [Mass/Vol] 134 mg/dL High 70-100 The [facility] Comment on above: Performed By: #### 8 5499 #### [facility] [address] [place] [address], [place] Glucose [Mass/Vol] 164 mg/dL High 70-100 The [facility] Comment on above: Performed By: #### 8 5499 #### [facility] [address] [place] [address], [facility] PROTHROMBIN TIMEon 9 INR Coag (PPP) [Relative time] 1.06 {INR} Normal 0.91-1.16 [facility] Comment on above: Order Comment: No: D o not add to previous draw Result Comment: ACCC P RECOMMENDED INR FOR WARFARIN THERAPY ------- CONDITION INR PROPHYLAXIS OF VENOUS THROMBOSIS 2-3 (HIGH-RISK SURGERY) TREATMENT OF VENOUS THROMBOSIS 2-3 TREATMENT OF PULMONARY EMBOLISM 2-3 PREVENTION OF SYSTEMIC EMBOLISM: 2-3 ACUTE MYOCARDIAL INFARCTION TISSUE HEART VALVES VALVULAR HEART DISEASE ATRIAL FIBRILLATION RECURRENT SYSTEMIC EMBOLISM MECHANICAL HEART VALVE 2.5-3.5 FROM: ORAL ANTICOAGULANTS. MECHANISM OF ACTION, CLINICAL EFFECTIVENESS, AND OPTIMAL THERAPEUTIC RANGE. CHEST 1995;108:231S-246S. Performed By: #### 5 6101, [address] #### [facility] [address] [place] [address], [place] PT Coag (PPP) [Time] 13.8 s Normal 12.3-14.8 [facility] Comment on above: Order Comment: No: D o not add to previous draw Result Comment: ALL RESULTS MUST BE INTERPRETED WITH RESPECT TO BLOOD DRAWING ARTIFACT OR DILUTION ERROR OF ANTICOAGULANT AT THE TIME OF SAMPLING. Performed By: #### [id number] #### [facility] [address] SERUM TESTon 08-23 TEST Negative Normal [facility] Comment on above: Order Comment: Yes: Add to Previous draw if able Performed By: #### [id number] #### [facility] [address] [facility] TROPONIN-Ion 08-23-2018 Troponin I.cardiac [Mass/Vol] 0.01 ng/mL Normal 0.00-0.04 [facility] Comment on above: Order Comment: No: D o not add to previous draw Result Comment: REFE RENCE RANGES: 0.00 - 0.04 ng/ml NORMAL 0.05 - 0.50 ng/ml INDETERMINATE > 0.50 ng/ml CONSISTENT WITH AN M.I. Performed By: #### 3 [id number] #### [facility] 3000 [facility]. [address] UFH HEPARIN ASSAYon 08-24-19 19 UNFRACTIONATED HEPARIN 0.42 IU/mL Normal 0.30-0.70 Th e [facility] Comment on above: Order Comment: per beatriz schneider Result Comment: Amidon roxaban and Apixaban will interfere with the anti Xa assay used to monitor UFH and LMWH. Performed By: #### 3 [id number] #### [facility] [address] UNFRACTIONATED HEPARIN 0.29 IU/mL Low 0.30-0.70 Th e [facility] Comment on above: Result Comment: Betty roxaban and Apixaban will interfere with the anti Xa assay used to monitor UFH and LMWH. Performed By: #### 3 [id number] #### [facility] [address] [address], [facility] US GALLBLADDERon 08-23-2018 US GALLBLADDER [facility] Department of Radiology [address] [place] [id number] ======== Patient Name: SHERLY HUMPHREYS : 1970 Sex: F Age: Race: White Pt. Location: [id number] Patient Status: I Ordered Date: 08/23/2018 11:30:00 AM Completed Date: 08/23/2018 01:41 PM Requesting Provider: PENG MERINO Attending Provider: PENG MERINO Report Copy To: Signs & Symptoms: RUQ/Abdominal Pain History: Patient history not available Comments: R/O Biliary Disease Exam: US GALLBLADDER ======== US GALLBLADDER 08/23/2018 1:41 PM EDT SIGNS [...] adjacent to the gallbladder. Electronically signed by:Nathan Mauricio. Transcribed by: [email or web address], User Resident: Electronically Signed by: NATHAN MAURICIO @ 08/23/2018 03:33 PM Normal [facility] Comment on above: Order Comment: No: D o not add to previous draw Vital Signs Date Time Vital Sign Value Performing Clinician Facility 08-14-2022 10:15-0400 Body height 162.56 cm Ivan Pandaky Other [facility] Other 08-14-2022 10:15-0400 Body mass index (BMI) [Ratio] 51.63 kg/m2 Ivan Latrell Other [facility] Other 08-14-2022 10:15-0400 Body weight 136.44 kg Ivan Pandaky Other [facility] Other 08-14-2022 10:15-0400 Diastolic blood pressure 80 mm[Hg] Ivanying Sams Other [facility] Other 08-14-2022 10:15-0400 SaO2% (BldA) [Mass fraction] 99 % Ivan Pandaky Other [facility] Other 08-14-2022 10:15-0400 Systolic blood pressure 140 mm[Hg] Ivan Pandaky Other [facility] Other 07-03-2022 12:30-0400 Body height 162.56 cm Ivan Latrell Other [facility] Other 07-03-2022 12:30-0400 Body mass index (BMI) [Ratio] 51.39 kg/m2 Ivan Pandaky Other [facility] Other 07-03-2022 12:30-0400 Body weight 135.81 kg Ivan Latrell Other [facility] Other 07-03-2022 12:30-0400 Diastolic blood pressure 84 mm[Hg] Ivan Sams Other [facility] Other 07-03-2022 12:30-0400 SaO2% (BldA) [Mass fraction] 99 % Ivan Sams Other [facility] Other 07-03-2022 12:30-0400 Systolic blood pressure 142 mm[Hg] Ivan Sams Other [facility] Other 06-24-2022 15:59-0500 Body height 162.56 cm Janene Aichholz Work Phone: [facility] 06-24-2022 15:59-0500 Body temperature 98.2 [degF] Janene Aichholz Work Phone: [facility] 06-24-2022 15:59-0500 Body weight 134.4 kg Janene Aichholz Work Phone: [facility] 06-24-2022 15:59-0500 Diastolic blood pressure 95 mm[Hg] Janene Aichholz Work Phone: [facility] 06-24-2022 15:59-0500 Heart rate 94 /min Janene Aichholz Work Phone: [facility] 06-24-2022 15:59-0500 Respiratory rate 20 /min Janene Aichholz Work Phone: [facility] 06-24-2022 15:59-0500 SaO2% (BldA) [Mass fraction] 96 % Janene Aichholz Work Phone: [facility] 06-24-2022 15:59-0500 Systolic blood pressure 187 mm[Hg] Janene Aichholz Work Phone: [facility] 05-12-2022 12:00-0500 Body height 162.56 cm Christiansánchez Mckenzie Other [facility] Other 05-12-2022 12:00-0500 Body mass index (BMI) [Ratio] 51.94 kg/m2 Christian Mckenzie Other [facility] Other 05-12-2022 12:00-0500 Body weight 137.26 kg Christian Alfonso Other [facility] Other 04-25-2022 12:20-0500 Body height 162.56 cm Azaurelia Webers Other [facility] Other 04-25-2022 12:20-0500 Body mass index (BMI) [Ratio] 51.94 kg/m2 Azaurelia ProspXhous Other [facility] Other 04-25-2022 12:20-0500 Body temperature 97.5 [degF] Aziz ProspXhous Other [facility] Other 04-25-2022 12:20-0500 Body weight 137.26 kg Aziz Bakhous Other [facility] Other 04-25-2022 12:20-0500 Diastolic blood pressure 80 mm[Hg] Aziz Bakhous Other [facility] Other 04-25-2022 12:20-0500 Respiratory rate 18 /min Aziz Bakhous Other [facility] Other 04-25-2022 12:20-0500 SaO2% (BldA) [Mass fraction] 97 % Aziz Bakhous Other [facility] Other 04-25-2022 12:20-0500 Systolic blood pressure 140 mm[Hg] Halle Mac Other [facility] Other 01-25-2022 16:15-0400 Body height 162.56 cm Emma Bolivar Other [facility] Other 01-25-2022 16:15-0400 Body mass index (BMI) [Ratio] 52.78 kg/m2 Emma Bolivar Other [facility] Other 01-25-2022 16:15-0400 Body temperature 97.1 [degF] Emma Bolivar Other [facility] Other 01-25-2022 16:15-0400 Body weight 139.48 kg Emma Bolivar Other [facility] Other 01-25-2022 16:15-0400 Diastolic blood pressure 70 mm[Hg] Emma Bolivar Other [facility] Other 01-25-2022 16:15-0400 SaO2% (BldA) [Mass fraction] 98 % Emma Bolivar Other [facility] Other 01-25-2022 16:15-0400 Systolic blood pressure 142 mm[Hg] Emma Bolivar Other [facility] Other 12-06-2021 12:20-0400 Body height 162.56 cm Christian Mckenzie Other [facility] Other 12-06-2021 12:20-0400 Body mass index (BMI) [Ratio] 46.34 kg/m2 Christian Mckenzie Other [facility] Other 12-06-2021 12:20-0400 Body weight 122.47 kg Christian Mckenzie Other [facility] Other 11-10-2021 16:20-0400 Body height 162.56 cm Christian Mckenzie Other [facility] Other 11-10-2021 16:20-0400 Body mass index (BMI) [Ratio] 46.34 kg/m2 Christian Mckenzie Other [facility] Other 11-10-2021 16:20-0400 Body weight 122.47 kg Christian Mckenzie Other [facility] Other 09-29-2021 14:00-0400 Body height 162.56 cm Christian Mckenzie Other [facility] Other 09-29-2021 14:00-0400 Body mass index (BMI) [Ratio] 46 kg/m2 Christian Mckenzie Other [facility] Other 09-29-2021 14:00-0400 Body weight 121.56 kg Christian Mckenzie Other [facility] Other 08-30-2021 15:40-0400 Body height 162.56 cm Christian Mckenzie Other [facility] Other 08-30-2021 15:40-0400 Body mass index (BMI) [Ratio] 46 kg/m2 Christian Mckenzie Other [facility] Other 08-30-2021 15:40-0400 Body weight 121.56 kg Christian Mckenzie Other [facility] Other Encounters Encounter Date Encounter Type Care Provider Facility Start: 09-20-2023 End: 09-20-2023 ambulatory SHAIKH TYLER Not Available Start: 09-14-2023 End: 09-14-2023 ambulatory BAN UMANZOR V Not Available Start: 09-13-2023 End: 09-13-2023 ambulatory JANENE KARENHOLZ Not Available Start: 09-11-2023 End: 09-11-2023 ambulatory JAYAB [facility] Start: 09-03-2023 ambulatory Valdemar Ruff acility:[facility] Start: 08-10-2023 End: 08-10-2023 ambulatory Halle Webers Facility:[facility] Start: 07-09-2023 End: 07-10-2023 ambulatory Elza Conway MD Facility:[facility] Start: 07-03-2023 End: 07-03-2023 ambulatory JESSICA GASPAR Not Available Start: 07-02-2023 End: 07-02-2023 ambulatory JANENE REDDHHOLZ Not Available Start: 06-26-2023 End: 06-26-2023 ambulatory BAN UMANZOR V Not Available Start: 06-19-2023 End: 06-19-2023 ambulatory Janene J Reddhholz Facility:[facility] Start: 05-25-2023 End: 05-25-2023 ambulatory SONIA HAQ Facility:[facility] Start: 05-17-2023 End: 05-17-2023 ambulatory Janene J Reddhholz Facility:[facility] Start: 05-17-2023 End: 05-17-2023 ambulatory Janene J Aichholz Work Phone: [facility] Work Phone: Start: 05-17-2023 End: 05-17-2023 Patient encounter procedure Janene Louann Work Phone: [facility] [place] Work Phone: Start: 05-03-2023 End: 05-03-2023 ambulatory JANENE KARENHOLZ Not Available Start: 03-15-2023 Registered Recurring Janene Jones omkar Work Phone: [facility] Start: 03-14-2023 End: 03-14-2023 [facility] Start: 02-19-2023 End: 02-20-2023 ambulatory Elza Conway MD Facility:[facility] Start: 01-01-2023 End: 01-02-2023 ambulatory Elza Conway MD Facility:[facility] Start: 11-30-2022 End: 11-30-2022 ambulatory [facility] Start: 11-29-2022 End: 11-29-2022 ambulatory Halle Webers Other [facility] Other Start: 11-29-2022 Telephone encounter Halle Webers [facility] Start: 09-29-2022 End: 09-29-2022 ambulatory [facility] Start: 09-18-2022 End: 09-18-2022 ambulatory Ivan Latrell Other [facility] Other Start: 09-18-2022 Telephone encounter Ivan Latrell [facility] Start: 09-07-2022 End: 09-07-2022 ambulatory [employer] JANENE REDDTimmyANGIERufus Facility: Start: 08-14-2022 End: 08-14-2022 ambulatory Ivan Latrell Other [facility] Other Start: 08-14-2022 Office outpatient vi sit 25 minutes Ivan Latrell [facility] Start: 07-03-2022 End: 07-03-2022 ambulatory Ivan Latrell Other [facility] Other Start: 07-03-2022 Office consultation new/estab patient 60 min Ivan Latrell [facility] Start: 06-24-2022 End: 06-24-2022 Emergency department patient visit Janene Jonesangierufus Work Phone: [facility] Work Phone: Start: 06-08-2022 End: 06-09-2022 ambulatory AGUSTINA LEW Facility:[facility] Start: 05-29-2022 End: 05-30-2022 ambulatory [employer] JANENE LEW Facility:[facility] Start: 05-13-2022 ambulatory [employer] JANENE LEW Facil ity:[facility] Start: 05-12-2022 End: 05-12-2022 ambulatory Christian Mckenzie Other [facility] [employer] Other Start: 05-12-2022 Office outpatient vi sit 15 minutes Christian Mckenzie [facility] Start: 04-25-2022 End: 04-25-2022 ambulatory Halle Mac Other [facility] [employer] Other Start: 04-25-2022 Office outpatient ne w 30 minutes Azaurelia Bakmichaels [facility] [place] Start: 03-29-2022 End: 03-30-2022 ambulatory AGUSTINA LEW Facility:[facility] Start: 03-23-2022 End: 03-24-2022 ambulatory [employer] JANENE LEW Facility:[facility] Start: 02-19-2022 End: 02-19-2022 ambulatory [employer] JANENE LEW Facility:[facility] Start: 02-16-2022 End: 02-16-[address] MYRIAM PERRIN . Facility:[facility] Start: 02-15-2022 ambulatory AGUSTINA LEW Facil ity:[facility] Start: 01-25-2022 End: 01-25-2022 Patient encounter procedure Janene Lew Work Phone: [facility] Start: 01-25-2022 End: 01-25-2022 ambulatory Janene Lew Work Phone: [facility] Work Phone: Start: 01-25-2022 Office outpatient vi sit 25 minutes Emma Bolivar [facility] Start: 01-25-2022 End: 01-26-2022 ambulatory [employer] JANENE AICHHOLZ Facility:[facility] Start: 01-23-2022 End: 01-24-2022 ambulatory [employer] JANENE AICHHOLZ Facility:[facility] Start: 01-12-2022 End: 01-13-2022 ambulatory [employer] JANENE AICHHOLZ Facility:[facility] Start: 12-21-2021 End: 12-22-2021 ambulatory [employer] JANENE AICHHOLZ Facility:[facility] Start: 12-06-2021 End: 12-06-2021 ambulatory Christian Mckenzie Other [facility] Other Start: 12-06-2021 Office outpatient vi sit 15 minutes Christiansánchez Mckenzie [facility] Start: 11-30-2021 End: 11-30-2021 ambulatory [employer] JANENE AICHHOLZ Facility:[facility] Start: 11-28-2021 End: 11-29-2021 ambulatory [employer] JANENE AICHHOLZ Facility:[facility] Start: 11-14-2021 End: 11-14-2021 ambulatory Janene J Karenholz Work Phone: [facility] Work Phone: Start: 11-14-2021 End: 11-14-2021 Discharged Recurring Janene Jonesangierufus Work Phone: [facility]-Physical Therapy [place] Start: 11-10-2021 End: 11-10-2021 ambulatory Christian Mckenzie Other [facility] Other Start: 11-10-2021 Postop follow up vis it related to original px Christian Mckenzie [facility] Start: 10-28-2021 End: 10-29-2021 ambulatory [employer] JANENE AICHHOLZ Facility:[facility] Start: 10-02-2021 End: 10-02-2021 ambulatory [employer] JANENE AICHHOLZ Facility:[facility] Start: 09-29-2021 End: 09-29-2021 ambulatory Christian Mckenzie Other [facility] Other Start: 09-29-2021 Postop follow up vis it related to original px Christian Mckenzie [facility] Start: 08-30-2021 End: 08-30-2021 ambulatory Christian Mckenzie Other [facility] Other Start: 08-30-2021 Postop follow up vis it related to original px Christian Mckenzie [facility] Start: 08-12-2021 Admission to [facility] Christian Mckenzie [facility] Start: 08-12-2021 End: 08-12-2021 ambulatory Christian Mckenzie Other [employer] [facility] [employer] Other Start: 08-23-2018 End: 08-25-2018 Evaluation and management of inpatient Peng Merino Facility:[facility] Procedures Date Procedure Procedure Detail Performing Clinician Start: 08-23-2018 FLUOROSCOPY OF MULTI PLE CORONARY ARTERIES USING OTH CONTRAST EHAB A [place] History of percutane ous transluminal coronary angioplasty History of PTCA Janene Lew Work Phone: Plan of Treatment Date Care Activity Detail Author Start: 05-17-2023 Bacteria identified in Urine by Culture [facility] Patient Education Radiculopathy (DC) [facility] Work Phone: Patient referral [facility] Work Phone: Immunizations Immunization Date Immunization Notes Care Provider Fern osuna 05-17-2021 COVID-19 mRNA, Comirnaty (Pfizer) Janene Lew Work Phone: [facility] 09-06-2020 COVID-19 mRNA, Comirnaty (Pfizer) Janene Aichholz Work Phone: [facility] 08-16-2020 COVID-19 mRNA, Comirnaty (Pfizer) Janene Aichholz Work Phone: [facility] 01-31-2019 influenza, injectabl e, quadrivalent, contains preservative Christian Mckenzie Other [facility] [employer] Other 03-15-2018 influenza, injectabl e, quadrivalent, contains preservative Christian Alfonso Other [facility] Other Payers Date Payer Category Payer Private Health Insurance [id number] 2023 Unknown [id number] 2022 Self-pay [id number] 2022 Medicaid [id number] [id number] 2022 Private Health Insurance 2022 Unknown 2022 Private Health Insurance [id number] 2.16.840.1.528570.19 2010 Self-pay [id number] 1970 Unknown [id number] 2.16.840.1.832169.3.579.2.64 7 1970 Unknown [id number] 2.16.840.1.849645.3.579.2.59 3 1970 Unknown [id number] 2.16.840.1.340544.3.579.2.59 3 1970 Unknown [id number] 2.16.840.1.881746.3.579.2.59 3 1970 Unknown [id number] 2.16.840.1.760957.3.579.2.59 3 1970 Unknown [id number] 2.16.840.1.861472.3.579.2.59 3 1970 Unknown [id number] 2.16.840.1.687207.3.579.2.59 3 1970 Unknown [id number] 2.16.840.1.972791.3.579.2.59 3 1970 Unknown [id number] 2.16.840.1.615557.3.579.2.59 3 1970 Unknown [id number] 2.16.840.1.436864.3.579.2.59 3 1970 Unknown [id number] 2.16.840.1.284957.3.579.2.59 3 1970 Unknown [id number] 2.16.840.1.883801.3.579.2.59 3 1970 Unknown [id number] 2.16.840.1.346381.3.579.2.59 3 1970 Unknown [id number] 2.16.840.1.543092.3.579.2.59 3 1970 Unknown [id number] 2.16.840.1.349315.3.579.2.59 3 1970 Unknown [id number] 2.16.840.1.850729.3.579.2.59 3 1970 Unknown [id number] 2.16.840.1.683542.3.579.2.59 3 1970 Unknown [id number] 2.16.840.1.331155.3.579.2.59 3 1970 Unknown [id number] 2.16.840.1.063530.3.579.2.71 8 1970 Unknown [id number] 2.16.840.1.614941.3.579.2.19 6 1970 Unknown [id number] 2.16.840.1.098754.3.579.2.19 6 1970 Unknown [id number] 2.16.840.1.471074.3.579.2.19 6 1970 Unknown [id number] 2.16.840.1.872549.3.579.2.12 59 1970 Unknown [id number] 2.16.840.1.348361.3.579.2.12 59 1970 Unknown [id number] 2.16.840.1.309940.3.579.2.12 59 1970 Unknown [id number] 2.16.840.1.389666.3.579.2.12 59 1970 Unknown [id number] 2.16.840.1.666834.3.579.2.12 59 1970 Unknown [id number] 2.16.840.1.192393.3.579.2.12 59 1970 Unknown [id number] 2.16.840.1.939551.3.579.2.12 59 1970 Unknown [id number] 2.16.840.1.724889.3.579.2.12 59 1970 Unknown [id number] 2.16.840.1.263433.3.579.2.12 59 1970 Unknown [id number] 2.16.840.1.088035.3.579.2.12 59 1959 Private Health Insurance [id number] 2.16.840.1.283989.19 1959 Unknown [id number] 2.16840.1.956034.19 Medicaid Anthem [place] Medicaid [id number] Unknown Ko Vaya BC/BS [id number] Unknown [id number] 2.16840.1.767474.3.579.2.53 1 Unknown [id number] 2.16840.1.291286.3.579.2.53 1 Unknown [id number] 2.16840.1.560283.3.579.2.53 1 Unknown [id number] 2.16840.1.940826.3.579.2.53 1 Social History Date Type Detail Facility Unknown if ever smoked [facility] Other Sex Assigned At Sex Assigned At Bir th [facility] Other Start: 08-12-2021 End: 06-24-2022 Tobacco smoking status NHIS Never smoked tobacco (finding) [facility] Start: 1970 Sex Assigned At Female F [facility] Clinical Notes 08-30-2021 to 09-11-2023 Note Date & Type Note Facility 09-11-2023 Note [facility] Card[facility] Note Chief Complaint: Patient here for 6 mo follow up CAD, hypertension, HFpEF, and dizziness. Her insurance denied the order for carotid doppler. She states dizzy spells continue to worsen. GARNER is also worsening. C/o LE edema. Denies chest pain and palpitations. Says she thought she was in heart failure recently and almost went to the ED. She works at [employer] and she has to stop and rest a few times while walking through the store. HPI: Sherly Humphreys is a 52 y.o. female With the above-mentioned disorder is here in follow-up Her dizziness persists and indeed is worse; she continues to experience dizziness pretty much all day. This is worse when she sits up from a lying down position or stands from a sitting position. She feels very lightheaded and presyncopal. She has not passed out. She denies spinning or ringing in the ears. She denies chest pain. Her shortness of breath seems to have worsened. She states that her legs are swollen from the beginning of the day to the end despite no increase in her weight. She sleeps on 4 pillows. She has no paroxysmal external dyspnea. Since I last saw her, she Has had to take an extra dose of Lasix 2 or 3 times for weight gain. Pertinently, she has been diabetic for 15 years plus. Cardiology ROS: Review of Systems Cardiovascular: Positive for dyspnea on exertion and leg swelling. Respiratory: Positive for shortness of breath. Neurological: [...] Medications: amLODIPine (Norvasc) 5 mg tablet, Take 2 tablets (10 mg) by mouth in the morning., Disp: 180 tablet, Rfl: 3 ARIPiprazole (Abilify) 30 mg tablet, Take 1 tablet by mouth [...] route for 28 days., Disp: , Rfl: escitalopram (Lexapro) 20 mg tablet, Take 1 tablet by mouth in the morning., Disp: , Rfl: fenofibrate (Tricor) 145 mg tablet, Take 1 tablet by mouth in the morning., Disp: , Rfl: ferrous sulfate 325 (65 Fe) MG tablet, Take 65 mg by mouth with breakfast., Disp: , Rfl: furosemide (Lasix) 20 mg tablet, Take 20 mg by mouth in the morning., Disp: , Rfl: gabapentin (Neurontin) 300 mg capsule, Take 300 mg by mouth if needed., Disp: , Rfl: glipiZIDE (Glucotrol) 5 mg tablet, Take 5 mg by mouth in the morning., Disp: , Rfl: isosorbide mononitrate ER (Imdur) 30 mg 24 hr tablet, Take 1 tablet (30 mg) by mouth in the morning., Disp: 90 tablet, Rfl: 3 lamoTRIgine (LaMICtal) 200 mg tablet, Take 250 mg by mouth in the morning., Disp: , Rfl: magnesium oxide (Mag-Ox) 400 mg (241.3 mg magnesium) tablet, Take 1 tablet by mouth in the morning., Disp: , Rfl: metoprolol succinate XL (Toprol-XL) 25 mg 24 hr tablet, Take 0.5 tablets (12.5 mg) by mouth in the morning., Disp: 45 tablet, Rfl: 3 nitroglycerin (Nitrostat) 0.4 mg SL tablet, Place 1 tablet as needed by sublingual route as needed for 30 days., Disp: , Rfl: pioglitazone (Actos) 45 mg tablet, , Disp: , Rfl: sacubitril-valsartan (Entresto) 49-51 mg tablet, Take 1 tablet by mouth in the morning and at bedtime., Disp: 180 tablet, Rfl: 3 spironolactone (Aldactone) 25 mg tablet, Take 1 tablet (25 mg) by mouth in the morning., Disp: 90 tablet, Rfl: 3 tiZANidine (Zanaflex) 4 mg capsule, Take 1 capsule as needed by oral route., Disp: , Rfl: Last Recorded Vitals BP 130/76 (BP Location: Left wrist, Patient Position: Sitting) Pulse 69 Ht 1.651 m (5' 5 ) Wt (!) 138 kg (305 lb) SpO2 99% BMI 50.75 kg/m??? Physical Examination: GENERAL: alert and oriented x3, well developed, in no acute distress. HEAD: atraumatic, normocephal (more content not included)... [facility] 03-14-2023 Note [facility] Cardiology Clinic Note Chief Complaint: Patient here for 3 mo follow up CAD, hypertension, and diastolic heart failure. She was switched from lisinopril to Entresto at last visit in Nov 2022 by Jonathan Small, AGUSTINA. Spironolactone was also added. BMP done 12/13/2022. [...] chest pain and palpitations. Went to [facility] recently and had to sit down in [...] right ventricular systo (more content not included)... [facility] 11-30-2022 Note Cardiology Clinic No te [...] diastolic heart failure (CMS/HCC) Coronary arteriosclerosis in [place] artery Coronary atherosclerosis Dehydration Bipolar disorder (CMS/HCC) [...] 19, serum creati (more content not included)... [facility] 09-29-2022 Note Review of Systems Cardiovascular: Positive for leg swelling. Respiratory: Positive for shortness of breath. [facility] 09-29-2022 Note Cardiology Clinic No te [...] diastolic heart failure (CMS/HCC) Coronary arteriosclerosis in [place] artery Coronary atherosclerosis Dehydration Bipolar disorder (CMS/HCC) [...] Otherwise normal coronary (more content not included)... [facility] 08-14-2022 Evaluation note Encounter Date Diagnosis [...] - G89.29) Proceed with current treatment plan [facility] Other 03-20-2023 Evaluation note* Encounter Date Diagnosis [...] negative findings were considered in medical decision-making. [facility] Other 03-11-2023 Hospital Discharge instructions Additional Instructions [...] bowel control high fever or [facility] Work Phone: 1(230) 909-342201-27-2023 Evaluation note* Encounter Date Diagnosis Assessment Notes [...] [facility] 01-10-2023 Evaluation note* Encounter Date Diagnosis [...] obesity (ICD-10 - E66.01) Encouraged weight loss [facility] Other 10-12-2022 Evaluation note* Encounter Date Diagnosis [...] strap. A prescription was sent to the [facility] for new supplies throughout the year, as [...] sleepiness, or poor response to treatment. . [facility] Other 08-23-2022 Evaluation note* Encounter Date Diagnosis [...] of thoracolumbar intervertebral disc (ICD-10 - M51.25) [employer] Other 07-28-2022 Evaluation note* Encounter Date Diagnosis [...] a med check and PT follow up [employer] Other 06-16-2022 Evaluation note* Encounter Date Diagnosis [...] labor Sep, Thoracic myelopathy (ICD-10 - M47.14) [employer] Other 05-17-2022 Evaluation note* Encounter Date Diagnosis [...] Overall she is making a good recovery [employer] Other evaluation noteNo InformationNort [place] Other evaluation noteNo assessment information available [facility] Work Phone: History general Narrative - Reported* Type Description Date [...] History Tonsilectomy Teenager Hospitalization History See Above [employer] Other History general Narrative - Reported* Type Description Date Medical History hypertension Medical History Dyslipidemia (high LDL; low HDL) Medical History MRSA (methicillin re sistant staph aureus) culture positive Medical History Cervicalgia Medical History depression with Bipolar II Medical History URIEL Surgical History Neck Fusion 2015 Surgical History Back Surgery 2016 Surgical History left Rotator Cuff 2015 Surgical History Total Hysterectomy 2010 Surgical History Heart Stent 2010 Surgical History Tonsilectomy Teenager Surgical History LOW BACK SURGERY 07/2021 Hospitalization History See Above [employer] Other Summary Purpose Family History No Family [...] 2018 4:43pm Hospital Course Note MR#: [id number] [facility] Pt. Name: Sherly Humphreys Admitted: 08/23/2018 Discharged: 08/25/2018 Date of : 1970 Physician: Peng Merino MD DISCHARGE SUMMARY DISCHARGING PHYSICIAN: Peng Merino M.D. CONSULTS: Cardiology. PROCEDURES: Cardiac catheterization without [...] Diagnosis 1 Thoracic myelopathy (M47.14) Referral Organization [facility] Referring Provider First Name Christian Referring Provider Last Name Alfonso Referring Provider Specialty Neurologica l Surgery Referred Organization [facility] Pain Managemen t Referred Provider Ivan Sams Referred Address [address],[address] Referred Provider Specialty Pain Medicin e Referral Priority Routine General Notes Andreas Davisonn 023 12:45:54 PM >Received today and sent P2P Kristal Veloz 05/16/2022 02:01:28 PM >pt has been scheduled 06/02/22 Andreas Davisonn 06/05/2022 09:01:37 AM >Patient was a no show to her appt Nini Davison 06/13/2022 11:23:40 AM >Telephone encounter was sent Reason Evaluate and Treat B ilateral Low Back Pain Diagnosis 1 Low back pain (M54.5 ) Referral Organization [facility] Referring Provider First Name Christian Referring Provider Last Name Alfonso Referring Provider Specialty Neurologica l Surgery Referred Organization Unknown Facility Referred Provider Specialty Physical The rapist Referral Priority Routine Chief Complaint and Reason for Visit Chief Complaint low back pain Chief Complaint low back pain Sleep apnea 31-90 day follow up Chief Complaint rt leg pain Chief Complaint Z79.899 bipolar disorder N18.32 I12.9 E11.21 Additional Source Comments INFORMATION SOURCE (unrecogn ized section and content) DATE CREATED AUTHOR 11/22/2018 [facility] DATE CREATED AUTHOR AUTHOR'S ORGANIZ ATION 09/22/2022 [facility] DATE CREATED AUTHOR AUTHOR'S ORGANIZ ATION 05/26/2023 [facility] DATE CREATED AUTHOR AUTHOR'S ORGANIZ ATION 08/21/2023 [facility] DATE CREATED AUTHOR AUTHOR'S ORGANIZ ATION 09/13/2023 [facility] DATE CREATED AUTHOR AUTHOR'S ORGANIZ ATION 09/21/2023 [facility] DATE CREATED AUTHOR AUTHOR'S ORGANIZ ATION 09/22/2023 [facility] dical Specialists EPIC REASON FOR VISIT (unrecogniz ed section and content) [id number] WK PO DISC ECTOMY6 wk po Discectomy3 mo po Discectomy1 mo po med checkNo InformationRENAL CKD 3increased pain right side lower hipREF BY DR MCKENZIE FOR L1 RADICULOPATHY AND THORACIC PAINFOLLOW UP AFTER RIGHT LTRmultiple no showsNo Information Care Teams (unrecognized sec tion and content) Team Status: Active Member Role Status Dates Janene Lew Primary Care Provider Active Team Status: Active Member Role Status Dates Janene Lew Primary Care Provider Active Sta rt: March 15, 2023 Valdemar Alonso MD Attending Provider Active Start: March 15, 2023 Team Status: Inactive Member Role Status Dates Janene Lew Primary Care Provider Active Sta rt: May 17, 2023 End: May 17, 2023 Fauzia Huffman MD Attending Provider Active St art: May 17, 2023 End: May 17, 2023 Halle Mac MD Referring Provider Active Star t: May 17, 2023 End: May 17, 2023 Team Status: Inactive Member Role Status Dates Janene Lew Primary Care Provider Active Christian Mckenzie MD Attending Provider Active Team Status: Inactive Member Role Status Dates [facility] Active Emma Bolivar NP Attending Provider Active Team Status: Inactive Member Role Status Dates [facility] Active Merissa Hernandez CORPORATE GIVING MANAGER- Emergency Provider Active Goals (unrecognized section and [...] BE BASED ON THE PRIMARY CLINICAL RECORDS. [employer] [place] [facility]. provides no warranty or guarantee of the accuracy or completeness of information in this document.
--- NOTE | 2023-09-28 08:28 | MM_ITS ---
Patient Name: SHARLENE HUMPHREYS MR#: [id number] : 1970 Exam Date: 09/28/2023 Ordering Doctor: AGUSTINA Lew CNP RADIOLOGY REPORT PROCEDURE: MM TOMOSYNTHESIS SCREENING BI COMPARISON: MG MAMM SCREEN 3D ORESTES CAD, 12/30/2020. MG MAMM SCREEN 3D ORESTES CAD, 03/29/2022. INDICATIONS: Screening Calculator Name NCI Breast Cancer Risk Assessment Tool 5 Year Breast Cancer Risk 1.10% Lifetime Breast Cancer Risk 8.80% Personal Breast Cancer No Personal Ovarian Cancer No Treatments None Family Cancers Mother with head/neck cancer at age 73. LOCATION: [facility] BREAST COMPOSITION: There are scattered areas of fibroglandular density. FINDINGS: DIAGNOSTIC CATEGORY 1--NEGATIVE. NO CHANGE FROM COMPARISON ASSESSMENT. Scattered benign-appearing calcifications are present. RIGHT BREAST: No significant suspicious finding. LEFT BREAST: No significant suspicious finding. RECOMMENDATIONS: ROUTINE MAMMOGRAM AND CLINICAL EVALUATION IN 12 MONTHS. PLEASE NOTE: A NORMAL MAMMOGRAM DOES NOT EXCLUDE THE POSSIBILITY OF BREAST CANCER. A CLINICALLY SUSPICIOUS PALPABLE LUMP SHOULD BE BIOPSIED. Dictated by: Jarrett Weiss MD on 09/28/2023 at 09:56 Approved by: Jarrett Weiss MD on 09/28/2023 at 10:49
== END 2023-09-28 07:59 | disposition home or self-care (01) ==
LOC: MAMMO 07:58
PROVIDERS: PCP Nurse Practitioner; Visit Provider Nurse Practitioner
DX: Z12.31 Encounter for screening mammogram for malignant neoplasm of breast (principal); Z80.8 Family history of malignant neoplasm of other organs or systems
CPT/HCPCS: 77063; 77067

== ENCOUNTER 2023-09-30 20:46 | Emergency (ER) | payer BC, SELFPAY ==
[2023-09-30 20:49] VITALS: BP 163/84; PULSE 64; TEMP 36.8; O2SAT 99; BMI 53.2
--- NOTE | 2023-09-30 21:08 | CT_ITS ---
The [address] [address] Patient Name: SHARLENE HUMPHREYS MRN: [id number] date: 1970 Sex: F Assigned Patient Location: ER Current Patient Location: ER Accession/Order Number: [id number] Exam Date: 09/30/2023 21:20 Report Date: 09/30/2023 21:54 At the request of: SYLVIA ALFRED Procedure: CT abdomen pelvis wo con EXAM: CT abdomen pelvis wo con HISTORY: flank pain, r/o stone COMPARISON: 04/03/2023 TECHNIQUE: Unenhanced CT imaging of the abdomen and pelvis. This CT exam was performed using one or more of the following dose reduction techniques: Automated exposure control, adjustment of the mA and/or KV according to patient size, or use of iterative reconstruction technique. Unless otherwise stated, incidental findings do not require dedicated follow-up imaging. FINDINGS: The lung bases are clear. The heart size is normal. There is a small hiatal hernia. There are postoperative changes from gastric bypass. The liver, spleen, pancreas, adrenal glands, and kidneys demonstrate no acute abnormality. The gallbladder is distended. There is no biliary duct dilatation. The bowel is unobstructed. The appendix is normal. There is scattered colonic diverticulosis without acute diverticulitis. The bladder is distended and grossly within normal limits. There is degenerative disc disease of the lumbar spine. CT/CT abdomen pelvis wo con IMPRESSION: 1. No acute abnormality of the abdomen or pelvis. 2. Diffuse colonic diverticulosis without acute diverticulitis. Electronically authenticated by: NATHAN MARADIAGA Date: 09/30/2023 21:54
--- NOTE | 2023-09-30 21:12 | ED.GENADUL1 ---
HPI HPI - General Adult General Chief complaint: Urogenital-Female Stated complaint: FEVER/LOWER BACK PAIN Time Seen by Provider: 09/30/23 20:52 Source: patient Mode of arrival: walk-in History of Present Illness HPI narrative: 52-year-old female to the emergency department with chief complaint of anuria. Patient reports she has not urinated since Sunday morning. Patient reports that she has had urgency, frequency but nothing else. No hematuria. She reports bilateral flank pain. She reports she had a fever on Sunday, not confirmed with thermometer. She denies any other symptoms. She has been eating and drinking normally. Related Data Home Medications ?Medication ?Instructions ?Recorded ?Confirmed amlodipine 10 mg tablet 10 mg PO QDAY 12/18/22 09/24/23 aripiprazole 10 mg tablet 10 mg PO QDAY 12/18/22 09/24/23 aspirin 81 mg chewable tablet 81 mg PO QDAY 12/18/22 09/24/23 atorvastatin 80 mg tablet 80 mg PO QDAY 12/18/22 09/24/23 buspirone 30 mg tablet 30 mg PO BID 12/18/22 09/24/23 cariprazine 6 mg capsule (Vraylar) 6 mg PO Q24H 12/18/22 09/24/23 fenofibrate nanocrystallized 145 145 mg PO QDAY 12/18/22 09/24/23 mg tablet furosemide 20 mg tablet 40 mg PO QDAY 12/18/22 09/24/23 gabapentin 600 mg tablet 600 mg PO QDAY PRN neuromuscular 12/18/22 09/24/23 blockade isosorbide mononitrate 30 mg 30 mg PO QDAY 12/18/22 09/24/23 tablet,extended release 24 hr metoprolol succinate 25 mg 12.5 mg PO QDAY 12/18/22 09/24/23 tablet,extended release 24 hr pioglitazone 45 mg tablet 45 mg PO QDAY 12/18/22 09/24/23 sacubitril 49 mg-valsartan 51 mg 1 tab PO BID 12/18/22 09/24/23 tablet (Entresto) spironolactone 25 mg tablet 25 mg PO QDAY 12/18/22 09/24/23 tizanidine 4 mg tablet 4 mg PO Q8H PRN muscle spasticity 12/18/22 09/24/23 cetirizine 10 mg tablet (Zyrtec) 10 mg PO DAILY PRN allergy symptoms 01/01/23 09/24/23 ferrous sulfate 134 mg (27 mg 134 mg PO DAILY 01/01/23 09/24/23 iron) tablet (High Potency Iron) fluoxetine 10 mg capsule (Prozac) 10 mg PO DAILY 09/24/23 09/24/23 Previous Rx's ?Medication ?Instructions ?Recorded oxycodone-acetaminophen 7.5 mg-325 1 tab PO BID PRN pain #60 tabs 08/22/23 mg tablet (Percocet) oxycodone-acetaminophen 7.5 mg-325 1 tab PO Q8H PRN pain #60 tabs 09/24/23 mg tablet (Percocet) Allergies Allergy/AdvReac Type Severity Reaction Status Date / Time Sulfa (Sulfonamide Allergy Mild Hives Verified 09/24/23 08:48 Antibiotics) prochlorperazine AdvReac Intermediate Agitated Verified 09/24/23 08:48 [From Compazine] promethazine [From Phenergan] AdvReac Intermediate Agitated Verified 09/24/23 08:48 sulfamethoxazole AdvReac Mild Hives Verified 09/24/23 08:48 [From Bactrim] trimethoprim [From Bactrim] AdvReac Mild Hives Verified 09/24/23 08:48 Opioid HPI Opioid Management Most Recent Opioid Data: Last Pain Scale 8 09/24/23 08:45 Review of Systems ROS Status of ROS 10 or more systems reviewed and unremarkable except as noted in history and below [facility] History (Updated 09/30/23 @ 23:02 by Andrew Pinto MD) Bipolar 1 disorder ?F31.9 - Bipolar disorder, unspecified (ICD-10) Anxiety ?F41.9 - Anxiety disorder, unspecified (ICD-10) Diabetes ?E11.9 - Type 2 diabetes mellitus without complications (ICD-10) URIEL on CPAP ?G47.33 - Obstructive sleep apnea (adult) (pediatric) (ICD-10) Sleep apnea ?G47.30 - Sleep apnea, unspecified (ICD-10) High cholesterol ?E78.00 - Pure hypercholesterolemia, unspecified (ICD-10) CHF (congestive heart failure) ?I50.9 - Heart failure, unspecified (ICD-10) Surgical History (Updated 08/21/23 @ 11:50 by Selina Wolf RN) History of hysterectomy ?Z90.710 - Acquired absence of both cervix and uterus (ICD-10) History of shoulder surgery ?Z98.890 - Other specified postprocedural states (ICD-10) History of neck surgery ?Z98.890 - Other specified postprocedural states (ICD-10) History of back surgery ?Z98.890 - Other specified postprocedural states (ICD-10) History of heart artery stent ?Z95.5 - Presence of coronary angioplasty implant and graft (ICD-10) Social History Smoking status: Never smoker Exam Narrative Exam Narrative: VITALS: I have reviewed the triage vital signs. GENERAL: Well developed, well appearing adult in no acute distress. NEURO: Alert and oriented. Moves all extremities. Face is symmetric and expressive. EYES: PERRL. No scleral icterus or conjunctival injection. No discharge. HENT: Normocephalic, atraumatic. Hearing is grossly intact. Nares grossly patent and without discharge. Mucous membranes moist. NECK: No JVD. Patient moves neck without restriction. CARDIO: Rhythm regular. Normal rate. No murmur, rub, or gallop. Pulses equal bilaterally in the upper and lower extremity. No lower extremity edema. PULM: Lungs clear to auscultation in all rousseau. No wheezes, rales, or rhonchi. No conversational dyspnea. No splinting, stridor, or accessory muscle use. GI/: Abdomen is soft and non-tender. Normoactive bowel sounds. EXTREMITIES: Symmetric muscle bulk. No joint swelling. No clubbing, cyanosis, or deformity. SKIN: Warm and dry. Normal turgor. No rash or lesions appreciated. PSYCH: Anxious Constitutional Vital Signs, click to edit/add: Last Vital Signs Temp 98.2 F 09/30/23 20:49 Pulse 64 09/30/23 20:49 Resp 16 09/30/23 20:49 BP 163/84 H 09/30/23 20:49 Pulse Ox 99 09/30/23 20:49 O2 Del Method Room Air 09/30/23 20:49 Course Vital Signs Vital signs: Vital Signs Temperature 98.2 F 09/30/23 20:49 Pulse Rate 64 09/30/23 20:49 Respiratory Rate 16 09/30/23 20:49 Blood Pressure 163/84 H 09/30/23 20:49 Pulse Oximetry 99 09/30/23 20:49 Oxygen Delivery Method Room Air 09/30/23 20:49 Temperature 98.2 F 09/30/23 20:49 Pulse Rate 64 09/30/23 20:49 Respiratory Rate 16 09/30/23 20:49 Blood Pressure 163/84 H 09/30/23 20:49 Pulse Oximetry 99 09/30/23 20:49 Oxygen Delivery Method Room Air 09/30/23 20:49 Medical Decision Making MDM Narrative Medical decision making narrative: Well-appearing 52-year-old female to the emergency department with chief complaint of urinary difficulties. Vital stable, the patient is afebrile. Examination is unremarkable. Difficulty obtaining bladder scan due to body habitus. Will straight cath for residual as well as urine sample. CT scan for evaluation of her flank pain. Rule out stone. Fluids are ordered. Will check basic labs including renal function. Patient agrees with this plan. IV Fluids. CBC unremarkable. Electrolytes without acute abnormality. Her kidney function has significantly worsened with a doubling from her baseline creatinine. Urinalysis with granular casts, moderate bacteria and leukocyte esterase, will treat with Rocephin. Possible ATN. Patient reports she has not urinated in several days. New onset renal failure/oliguria. She will benefit from hospitalization at facility with nephrology. Case was discussed with With [facility] where her career development specialist Dr. Mac practices. He accepts the patient to his service. Patient agrees with plan for transfer. Medical Records Medical records reviewed: Yes I reviewed the patient's medical records Lab Data Lab results reviewed: Yes I reviewed the patient's lab results Labs: Lab Results 09/30/23 09/30/23 Range/Units 21:27 21:53 WBC 5.8 (4.0-11.0) 10^3/uL RBC 3.67 L (4.20-5.40) 10^6/uL Hgb 10.7 L (12.0-16.0) g/dL Hct 34.3 L (36.0-48.0) % MCV 93.5 (81.0-99.0) fL MCH 29.2 (26.7-34.0) pg MCHC 31.2 (29.9-35.2) g/dL RDW 13.8 (11.0-15.0) % Plt Count 261 (150-450) 10^3/uL MPV 11.1 (9.5-13.5) fL Neut % (Auto) 52.4 (43.0-75.0) % Lymph % (Auto) 36.1 (20.5-60.0) % [place] % (Auto) 7.4 (1.7-12.0) % Eos % (Auto) 2.9 (0.9-7.0) % Baso % (Auto) 0.7 (0.2-2.0) % Neut # (Auto) 3.0 (1.4-6.5) 10^3/uL Lymph # (Auto) 2.1 (1.2-3.8) 10^3/uL [place] # (Auto) 0.4 (0.3-0.8) 10^3/uL Eos # (Auto) 0.2 (0.0-0.7) 10^3/uL Baso # (Auto) 0.0 (0.0-0.1) 10^3/uL Abs Immat Gran (auto) 0.03 (0.00-0.03) 10^3/uL Imm/Tot Granulo (auto) 0.5 (0.0-0.5) % Sodium 140 (136-145) mmol/L Potassium 3.7 (3.5-5.1) mmol/L Chloride 105 (98-107) mmol/L Carbon Dioxide 25.2 (21.0-32.0) mmol/L Anion Gap 13.5 BUN 46.0 H (7.0-18.0) mg/dL Creatinine 3.18 H (0.55-1.02) mg/dL Est GFR ( Amer) 19 L (>=60) Est GFR (Non-Af Amer) 15 L (>=60) BUN/Creatinine Ratio 14.5 Glucose 96 (74-106) mg/dL Calcium 9.4 (8.5-10.1) mg/dL Urine Color Yellow (YELLOW) Urine Clarity Clear (CLEAR) Urine pH 5.5 (5.0-9.0) Ur Specific B[place] 1.020 (1.005-1.025) Urine Protein Negative (NEG/TRACE) mg/dL Urine Glucose (UA) Negative (NEGATIVE) mg/dL Urine Ketones Trace A (NEGATIVE) mg/dL Urine Occult Blood Negative (NEGATIVE) Urine Nitrite Negative (NEGATIVE) Urine Bilirubin Negative (NEGATIVE) Urine Urobilinogen 0.2 (0.2-1.0) EU/dL Ur Leukocyte Esterase Trace A (NEGATIVE) Urine RBC 0-2 (0-2) #/HPF Urine WBC 2-5 A (NONE SEEN) #/HPF Ur Squamous Epith Cells Few A (NONE/RARE) #/LPF Urine Crystals Seen A (None Seen) #/HPF Amorphous Sediment Many Urine Bacteria Moderate A (NONE SEEN) #/HPF Urine Casts Seen A (NONE SEEN) #/LPF Fine Granular Casts Moderate Coarse Granular Casts Rare Urine Mucus None seen (NONE SEEN) Ur Culture Indicated? Yes Imaging Data CT scan - abdomen: Radiologist's impression: ITS Impressions Abdomen/Pelvis CT 09/30/23 21:08 IMPRESSION: 1. No acute abnormality of the abdomen or pelvis. 2. Diffuse colonic diverticulosis without acute diverticulitis. Electronically authenticated by: NATHAN MARADIAGA Date: 09/30/2023 21:54 Critical Care Time Critical Care Time Critical Care Time: Yes Total Critical Care Time: 35 Attestation: Critical Care Procedure Note Authorized and Performed by: Andrew Pinto DO Total critical care time: 35 min Due to a high probability of clinically significant, life threatening deterioration, the patient required my highest level of preparedness to intervene emergently and I personally spent this critical care time directly and personally managing the patient. This critical care time included obtaining a history; examining the patient; pulse oximetry; ordering and review of studies; arranging urgent treatment with development of a management plan; evaluation of patient's response to treatment; frequent reassessment; and, discussions with other providers. This critical care time was performed to assess and manage the high probability of imminent, life-threatening deterioration that could result in multi-organ failure. It was exclusive of separately billable procedures and treating other patients and teaching time. Please see MDM section and the rest of the note for further information on patient assessment and treatment. Discharge Plan Discharge Chief Complaint: Urogenital-Female Clinical Impression: Acute renal failure, UTI (urinary tract infection), Anuria Patient Disposition: Xfer Acute Care Hospital Time of Disposition Decision: 23:01 Discharge Location: [facility] Condition: Good Mode of Transportation: EMS Prescriptions / Home Meds: No Action amlodipine 10 mg tablet 10 mg PO QDAY aripiprazole 10 mg tablet 10 mg PO QDAY aspirin 81 mg tablet,chewable 81 mg PO QDAY atorvastatin 80 mg tablet 80 mg PO QDAY buspirone 30 mg tablet 30 mg PO BID Vraylar 6 mg capsule 6 mg PO Q24H fenofibrate nanocrystallized 145 mg tablet 145 mg PO QDAY furosemide 20 mg tablet 40 mg PO QDAY gabapentin 600 mg tablet 600 mg PO QDAY PRN (Reason: neuromuscular blockade) isosorbide mononitrate 30 mg tablet extended release 24 hr 30 mg PO QDAY metoprolol succinate 25 mg tablet extended release 24 hr 12.5 mg PO QDAY pioglitazone 45 mg tablet 45 mg PO QDAY Entresto 49-51 mg tablet 1 tab PO BID spironolactone 25 mg tablet 25 mg PO QDAY tizanidine 4 mg tablet 4 mg PO Q8H PRN (Reason: muscle spasticity) oxycodone-acetaminophen [Percocet] 7.5-325 mg tablet 1 tab PO BID PRN (Reason: pain) Qty: 60 0RF Rx Instructions: MUST LAST 30 DAYS fluoxetine [Prozac] 10 mg capsule 10 mg PO DAILY cetirizine [Zyrtec] 10 mg tablet 10 mg PO DAILY PRN (Reason: allergy symptoms) High Potency Iron 134 mg (27 mg iron) tablet 134 mg PO DAILY oxycodone-acetaminophen [Percocet] 7.5-325 mg tablet 1 tab PO Q8H PRN (Reason: pain) Qty: 60 0RF Print Language: Citizen Of [place] Referrals: 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
[2023-09-30 21:36] LABS: Basophils Percent Auto 0.7 % (0.2-2.0); Eosinophils Absolute Auto 0.2 10^3/uL (0.0-0.7); Eosinophils Percent Auto 2.9 % (0.9-7.0); Hematocrit 34.3 % (36.0-48.0); Hemoglobin 10.7 g/dL (12.0-16.0); Immature Granulocytes Abs Auto 0.03 10^3/uL (0.00-0.03); Immature Granulocytes Pct Auto 0.5 % (0.0-0.5); Lymphocytes Absolute Auto 2.1 10^3/uL (1.2-3.8); Lymphocytes Percent Auto 36.1 % (20.5-60.0); Mean Corpuscular HGB Conc 31.2 g/dL (29.9-35.2); Mean Corpuscular Hemoglobin 29.2 pg (26.7-34.0); Mean Corpuscular Volume 93.5 fL (81.0-99.0); Mean Platelet Volume 11.1 fL (9.5-13.5); Monocytes Absolute Auto 0.4 10^3/uL (0.3-0.8); Monocytes Percent Auto 7.4 % (1.7-12.0); Neutrophils Percent Auto 52.4 % (43.0-75.0); Platelet Count 261 10^3/uL (150-450); Red Blood Count 3.67 10^6/uL (4.20-5.40); Red Cell Distribution Width 13.8 % (11.0-15.0); White Blood Count 5.8 10^3/uL (4.0-11.0)
[2023-09-30 21:44] LABS: Anion Gap 13.5; BUN Creatinine Ratio 14.5; Calcium 9.4 mg/dL (8.5-10.1); Carbon Dioxide 25.2 mmol/L (21.0-32.0); Chloride 105 mmol/L (98-107); Estimated GFR (African America 19 (>=60); Estimated GFR (Non-African Ame 15 (>=60); Glucose 96 mg/dL (74-106); Potassium 3.7 mmol/L (3.5-5.1); Sodium 140 mmol/L (136-145)
[2023-09-30 22:01] LABS: Bilirubin Urine NEGATIVE (NEGATIVE); Blood Urine NEGATIVE (NEGATIVE); Clarity Urine CLEAR (CLEAR); Color Urine YELLOW (YELLOW); Glucose Urine UA NEGATIVE (NEGATIVE); Ketones Urine TRACE mg/dL (NEGATIVE); Leukocyte Esterase Urine TRACE (NEGATIVE); Nitrite Urine NEGATIVE (NEGATIVE); Protein Urine NEGATIVE (NEG/TRACE); Urobilinogen Urine 0.2 EU/dL (0.2-1.0); pH Urine 5.5 (5.0-9.0)
[2023-09-30 22:02] LABS: Urine Microscopic Indicated YES
[2023-09-30] MEDS: 0.9 % SODIUM CHLORIDE 1,000 ML 999 ML IV (22:04)
[2023-09-30 22:08] LABS: Amorphous Sediment Urine MANY; Bacteria Urine MODERATE #/HPF (NONE SEEN); Cast Seen? SEEN #/LPF (NONE SEEN); Crystals Seen? Seen #/HPF (None Seen); Fine Granular Casts Urine MODERATE; Mucus Urine NONE SEEN (NONE SEEN); RBC Urine 0-2 #/HPF (0-2); Squamous Epithelial Cell Urine FEW #/LPF (NONE/RARE)
[2023-09-30 22:09] LABS: Coarse Granular Casts Urine RARE; Urine Culture Indicated YES
[2023-09-30] MEDS: CEFTRIAXONE 1,000 MG in 0.9 % SODIUM CHLORIDE 50 ML 100 MG IV (23:04)
[2023-09-30 23:18] VITALS: BP 152/82; PULSE 87; O2SAT 98
[2023-10-01 03:00] VITALS: BP 125/64; PULSE 55; O2SAT 97
[2023-10-01 04:05] VITALS: BP 150/92; PULSE 74; O2SAT 98
== END 2023-10-01 04:05 | disposition short-term general hospital (02) ==
PROVIDERS: Emergency Provider Student in an Organized Health Care Education/Training Program; PCP Nurse Practitioner
DX: N17.9 Acute kidney failure, unspecified (principal); N39.0 Urinary tract infection, site not specified; R34 Anuria and oliguria
CPT/HCPCS: 36415; 74176; 80048; 81001; 85025; 87086; 87150; 87186; 96365; 99285; J0696

== ENCOUNTER 2023-10-17 09:19 | Outpatient (OUT) | payer BC, SELFPAY ==
--- OUTSIDE RECORDS SUMMARY | 2023-10-17 09:42 | XMS_ITS | CCD ---
Author Organization [facility] Care Team Providers Care Manager Rehab Name Role Phone Peng Merino Admitting Unavailable Peng Merino Attending Unavailable GEOVANNI BRUNNER Primary Care Unavailable HAMMAD LING Referring Unavailabl e [place] Procedure Practitioner Unavailab TK [place] Surgeon Unavailable Christian Mckenzie Unavailable Janene Lew Primary Care Provider MD Christian Mckenzie Attending Provider ELIER Bolivar Emma Attending Provider [phone] Emma Bolivar Unavailable Halle Mac Unavailable Janene Lew Primary Care Provider STU HernandezLYNNE Antunez Emergency Provider Ivan Sams Unavailable AICHHOLZ, WASHING MACHINE MECHANIC JANENE Consulting Unavailable AICHHOLZ, WASHING MACHINE MECHANIC JANENE Attending Unavailable AICHHOLZ, WASHING MACHINE MECHANIC JANENE Admitting Unavailable AICHHOLZ, WASHING MACHINE MECHANIC JANENE Primary Care Unavailable AICHHOLZ, WASHING MACHINE MECHANIC JANENE Consulting Unavailable AICHHOLZ, WASHING MACHINE MECHANIC JANENE Attending Unavailable AICHHOLZ, WASHING MACHINE MECHANIC JANENE Admitting Unavailable AICHHOLZ, WASHING MACHINE MECHANIC JANENE Primary Care Unavailable AICHHOLZ, WASHING MACHINE MECHANIC JANENE Primary Care Unavailable AICHHOLZ, WASHING MACHINE MECHANIC JANENE Consulting Unavailable AICHHOLZ, WASHING MACHINE MECHANIC JANENE Admitting Unavailable AICHHOLZ, WASHING MACHINE MECHANIC JANENE Attending Unavailable AYDIN Carrillo, DR MGIUEL Attending Unavailable AYDIN Carrillo, DR MIGUEL Admitting Unavailable DR MYRIAM SAMANIEGO Consulting Unavailable AICHHOLZ, WASHING MACHINE MECHANIC JANENE Primary Care Unavailable AICHHOLZ, WASHING MACHINE MECHANIC JANENE Primary Care Unavailable DWAYNE FRIEDMAN Admitting Unavailable DWAYNE FRIEDMAN Attending Unavailable CLEMENT PLUMMER Consulting Unavailable Wan Jenkins Consulting Unavailable AICHHOLZ, WASHING MACHINE MECHANIC JANENE Primary Care Unavailable EVON TRAMMELL Attending Unavailable JP, EVON Admitting Unavailable EVON TRAMMELL Consulting Unavailable LUZ COELLO Consulting Unavailable NATHAN COLE Consulting Unavailable LIN GARRETT Consulting Unavailable AICHHOLZ, WASHING MACHINE MECHANIC JANENE Primary Care Unavailable AICHHOLZ, WASHING MACHINE MECHANIC JANENE Admitting Unavailable AICHHOLZ, WASHING MACHINE MECHANIC JANENE Attending Unavailable DR ALEX ALLEN V Consulting Unavailable AICHHOLZ, WASHING MACHINE MECHANIC JANENE Consulting Unavailable AICHHOLZ, WASHING MACHINE MECHANIC JANENE Consulting Unavailable AICHHOLZ, WASHING MACHINE MECHANIC JANENE Attending Unavailable AICHHOLZ, WASHING MACHINE MECHANIC JANENE Admitting Unavailable AICHHOLZ, WASHING MACHINE MECHANIC JANENE Primary Care Unavailable DR KATHY LOBATO Consulting Unavailable AICHHOLZ, WASHING MACHINE MECHANIC JANENE Attending Unavailable AICHHOLZ, WASHING MACHINE MECHANIC JANENE Admitting Unavailable AICHHOLZ, WASHING MACHINE MECHANIC JANENE Primary Care Unavailable DR ALEX ALLEN V Consulting Unavailable AICHHOLZ, WASHING MACHINE MECHANIC JANENE Consulting Unavailable AICHHOLZ, WASHING MACHINE MECHANIC JANENE Consulting Unavailable AICHHOLZ, WASHING MACHINE MECHANIC JANENE Primary Care Unavailable AICHHOLZ, WASHING MACHINE MECHANIC JANENE Attending Unavailable AICHHOLZ, WASHING MACHINE MECHANIC JANENE Admitting Unavailable AICHHOLZ, WASHING MACHINE MECHANIC JANENE Primary Care Unavailable AICHHOLZ, WASHING MACHINE MECHANIC JANENE Admitting Unavailable AICHHOLZ, WASHING MACHINE MECHANIC JANENE Consulting Unavailable AICHHOLZ, WASHING MACHINE MECHANIC JANENE Attending Unavailable DR KATHY LOBATO Consulting Unavailable AICHHOLZ, WASHING MACHINE MECHANIC JANENE Primary Care Unavailable BAKHOUS, AZIZ Admitting Unavailable BAKHOUS, AZIZ Attending Unavailable AICHHOLZ, WASHING MACHINE MECHANIC JANENE Attending Unavailable AICHHOLZ, WASHING MACHINE MECHANIC JANENE Admitting Unavailable AICHHOLZ, WASHING MACHINE MECHANIC JANENE Primary Care Unavailable AICHHOLZ, WASHING MACHINE MECHANIC JANENE Primary Care Unavailable AICHHOLZ, WASHING MACHINE MECHANIC JANENE Consulting Unavailable AICHHOLZ, WASHING MACHINE MECHANIC JANENE Attending Unavailable AICHHOLZ, WASHING MACHINE MECHANIC JANENE Admitting Unavailable DR KATHY LOBATO Consulting Unavailable AICHHOLZ, WASHING MACHINE MECHANIC JANENE Primary Care Unavailable AICHHOLZ, WASHING MACHINE MECHANIC JANENE Admitting Unavailable AICHHOLZ, WASHING MACHINE MECHANIC JANENE Attending Unavailable AICHHOLZ, WASHING MACHINE MECHANIC JANENE Consulting Unavailable AICHHOLZ, WASHING MACHINE MECHANIC JANENE Primary Care Unavailable DOLORES STRATTON Attending Unavailable AMBER Carrillo, DOLORSE Admitting Unavailable MR DELIA HENDRIX Consulting Unavailable AMBER ., DOLORES Consulting Unavailable ALEX AVINA Consulting Unavailable AICHHOLZ, WASHING MACHINE MECHANIC JANENE Primary Care Unavailable JP, EVON Attending Unavailable JP, EVON Admitting Unavailable JP, EVON Consulting Unavailable Aichholz, Janene J Primary Care Provider [phone] MD Valdemar Alonso Attending Provider MD Fauzia Huffman Attending Provider UnavailMD Halle Felton Referring Provider SONIA HAQ Primary Care Unavailable Aichholz, Janene J Attending Unavailable Aichholz, Janene J Admitting Unavailable AICHHOLZ, JANENE Attending Unavailable UMANZOR V, BAN Attending Unavailable AICHHOLZ, JANENE Referring Unavailable UMANZOR V, BAN Attending Unavailable AICHHOLZ, JANENE Attending Unavailable RUSHER, JESSICA S Attending Unavailable AICHHOLZ, JANENE Referring Unavailable RUSHER, JESSICA S Referring Unavailable AICHHOLZ, JANENE Attending Unavailable UMANZOR V, BAN Attending Unavailable SHAIKH SCOTT Attending Unavailable ELTAHAWY, EHAB Attending Unavailable JONATHAN SMALL Attending Unavailable ELTAHAWY, EHAB Attending Unavailable Aichholz, Janene J Primary Care Provider MD Fauzia Huffman Attending Provider UnavailMD Halle Felton Referring Provider MD Halle Mac Attending Provider Man SHARMA, Andrius Vytkailyn Attending Unavailable Girenee SHARMA, Andrius Vytautchuck Attending Unavailable Gieddung SHARMA, Andrius Vytautas Attending Unavailable Giedraitis , Andrius Vytautas Attending Unavailable Aichholz, Janene J Primary Care Provider [phone] MD Valdemar Alonso Attending Provider MD Alma Deng Admit Provider MD Kendrick Benitez Other Provider MD Fernando Rosenberg Attending Provider MD Valdemar Alonso Attending Provider Halle Mac Admitting Unavailable Halle Mac Attending Unavailable Janene Lew Primary Care Unavailable Fernando Rosenberg Admitting Unavailab Fernando Broderick Attending Unavailab le Janene Lew Primary Care Unavailable Valdemar Alonso Admitting Unavailab Valdemar Brock Attending Unavailab le Janene Lew Primary Care Unavailable Fernando Rosenberg Attending Unavailab [place] Consulting Unavailable Janene Lew Primary Care Unavailable Alma Deng Admitting Unavailable Fauzia Huffman Attending Unavailable Halle Mac Referring Unavailable Janene Lew Primary Care Unavailable Fauzia Huffman Admitting Unavailable Fauzia Huffman Attending Unavailable Janene Lew Primary Care Unavailable Fauzia Huffman Admitting Unavailable Allergies Allergy Classification Reported Allergen(s) Allergy Type Date of Onset Reaction(s) Facility (2 sources) Cephalexin Drug Allergy 10-06-19 10 [facility] (2 sources) Levamisole Drug Allergy 05-22-19 13 [facility] (2 sources) Omeprazole; Translations: [OMEPRAZOLE] Drug Allergy 04-20-19 16 [facility] (14 sources) Prochlorperazine Drug Allergy 10-06-19 10 Unknown [facility] (14 sources) Sulfamethoxazole / Trimethoprim Drug Allergy 10-06-19 10 Unknown [facility] (12 sources) Penicillins (Antibiotic) Propensity to adverse reactions [facility] Other (20 sources) Promethazine; Translations: [PROMETHAZINE] Drug Allergy 06-28-19 14 Unknown, Seizure [facility] (9 sources) empagliflozin; Translations: [EMPAGLIFLOZIN] Drug Allergy 08-11-19 22 Unknown Reaction [facility] (10 sources) Penicillins; Translations: [Penicillins] Allergy to substance 06-28-19 14 Rash [facility] (9 sources) Prochlorperazine; Translations: [PROCHLORPERAZINE] Drug Allergy 06-28-19 14 Seizure [facility] (9 sources) Sulfamethoxazole; Translations: [SULFAMETHOXAZOLE] Drug Allergy 06-28-19 14 [facility] (8 sources) Trimethoprim; Translations: [trimethoprim] Drug Allergy 08-11-19 22 [facility] (1 source) Sulfonamides (Antibiotic) Drug allergy (disorder) 06-10-19 15 [facility] (1 source) Cephalexin; Translations: [CEPHALEXIN] Drug Allergy 06-28-19 14 [facility] (1 source) Doxycycline; Translations: [DOXYCYCLINE CALCIUM] Drug Allergy 06-28-19 14 [facility] (1 source) Esomeprazole; Translations: [ESOMEPRAZOLE MAGNESIUM] Drug Allergy 06-23-19 17 [facility] (1 source) pantoprazole; Translations: [PANTOPRAZOLE] Drug Allergy 06-23-19 17 [facility] (1 source) Sulfamethoxazole / Trimethoprim; Translations: [SULFAMETHOXAZOLE-T RIMETHOPRIM] Drug Allergy 04-03-20 14 [facility] (1 source) PHENERGAN PLAIN; Translations: [PHENERGAN PLAIN] Propensity to adverse reactions to drug (disorder) 09-17-19 16 [facility] (3 sources) zolpidem; Translations: [zolpidem] Drug Allergy 10-01-19 24 Unknown Reaction [facility] (1 source) Promethazine Drug Allergy 10-16-19 24 [facility] Medications Current Medications Medication Drug Class(es) Dates Sig (Normalized) Sig (Original) acetaminophen 325 mg / oxyCODONE hydrochloride 7.5 mg oral tablet (13 sources) Opioid Agonist Start: 10-01-2023 End: 10-16-2023 take 1 tablet by mouth every eight hours Oxycodone-Acetami nophen Active 1 TAB PO Every 8 hours October 16, 2023 1:11pm Start: 06-24-2022 End: 08-15-2023 take 1 tablet by mouth every six hours Oxycodone-Acetaminophen Discontinued 1 T AB PO Q6H 10 3 June 24, 2022 August 15, 2023 10:12am [id number] 200 actuat albuterol 0.09 mg/actuat metered dose inhaler (6 sources) beta2-Adrenergic Agonist Start: 06-04-2021 take 1 puff(s) by inhalation every four hours Albuterol Sulfate (Ventolin Hfa) 90 mcg/actuation HFA aerosol inhaler Active 2 PUFF INHALATION Q4H June 04, 2021 1:00am Albuterol Active amLODIPine 10 mg oral tablet (10 sources) Dihydropyridine Calcium Channel Seema Start: 10-16-2023 take 10 mg by mouth once daily Amlodipine Active 10 MG PO Daily October 16, 2023 12:00am Start: 08-15-2023 End: 10-02-2023 take 10 mg by mouth once daily Amlodipine Discontinued 10 MG PO Daily August 15, 2023 12:00am October 02, 2023 10:55am take 1 tablet by brandin th every twenty-four hours amLODIPine Besylate 5 MG 1 tablet Orally Once a day Active amLODIPine Besyl ate Active aspirin 81 mg delayed release oral tablet (14 sources) Platelet Aggregation Inhibitor, Nonsteroidal Anti-inflammatory Drug Start: 06-06-2021 take 81 mg by mouth once daily Aspirin Active 81 MG PO Daily June 06, 2021 1:00am take 1 tablet by brandin th every twenty-four hours Aspirin 81 MG 1 tablet Orally Once a day Active atorvastatin 80 mg oral tablet (20 sources) HMG-CoA Reductase Inhibitor Start: 08-15-2023 take 80 mg by mouth once daily Atorvastatin Active 80 MG PO Daily August 15, 2023 12:00am Start: 06-04-2021 End: 08-15-2023 take 40 mg by mouth at bedtime Atorvastatin Discontinu ed 40 MG PO Bedtime June 04, 2021 1:00am August 15, 2023 10:06am take 1 tablet by brandin th every twenty-four hours Atorvastatin Calcium 80 MG 1 tablet Orally Once a day Active Biotin (6 sources) Biotin Active busPIRone hydrochloride 30 mg oral tablet (19 sources) Start: 06-04-19 take 30 mg by mouth twice daily Buspirone Active 30 MG PO Twice daily June 04, 2021 1:00am Calcium Citrate + D 315-200 MG-UNIT (6 sources) take 1 tablet by mouth twice daily Calcium Citrate + D 315-200 MG-UNIT 1 tablet Orally Twice a day Active cariprazine 6 mg oral capsule (5 sources) Atypical Antipsychotic Start: 08-15-19 take 6 mg by mouth once daily Cariprazine Active 6 MG PO Daily August 15, 2023 12:00am take 1 capsule by [facility] every twenty-four hours Vraylar 6 MG 1 capsule Orally Once a day Active Vraylar Active cetirizine hydrochloride 10 mg oral tablet (16 sources) Histamine-1 Receptor Antagonist Start: 10-06-2019 take 1 tablet by mouth once daily Cetirizine (Zyrtec) 10 mg Tablet Active 10 MG PO Daily June 04, 2021 1:00am Cetirizine HCl A ctive cholecalciferol 0.125 mg oral capsule (2 sources) Vitamin D Start: 08-15-2023 take 125 ug by mouth once daily Cholecalciferol (Vitamin D3) Active 125 MCG PO Daily August 15, 2023 12:00am escitalopram 20 mg oral tablet (13 sources) Serotonin Reuptake Inhibitor Start: 06-04-2021 take 20 mg by mouth once daily Escitalopram Oxalate Active 20 MG PO Daily June 04, 2021 1:00am Escitalopram Oxa late in am 1100 Active fenofibrate 145 mg oral tablet (15 sources) Peroxisome Proliferator Receptor alpha Agonist Start: 12-05-2019 take 145 mg by mouth once daily Fenofibrate Nanocrystallized Active 145 MG PO Daily June 04, 2021 1:00am Fenofibrate Acti ve FLUoxetine 20 mg oral capsule (3 sources) Serotonin Reuptake Inhibitor Start: 10-16-2023 take 1 capsule by mouth once daily Fluoxetine (Prozac) 20 mg capsule Active 20 MG PO Daily October 16, 2023 12:00am Start: 10-01-2023 End: 10-16-2023 take 10 mg by mouth once daily Fluoxetine Discontinued 10 MG PO Daily October 01, 2023 12:00am October 16, 2023 1:08pm fluticasone propionate 0.05 mg/actuat metered dose nasal spray (9 sources) Corticosteroid Start: 06-04-2021 End: 10-16-2023 Fluticasone Propionate Active 2 SPRAY INTRANASAL Daily October 16, 2023 1:10pm Fluticasone Prop ionate Active furosemide 20 mg oral tablet (8 sources) Loop Diuretic Start: 08-15-2023 take 1 tablet by mouth once daily Furosemide (Lasix) 20 mg tablet Active 20 MG PO Daily August 15, 2023 12:00am take 1 tablet by brandin th every twenty-four hours Lasix 20 MG 1 tablet Orally Once a day Active gabapentin 600 mg oral tablet (20 sources) Anti-epileptic Agent Start: 10-02-2023 End: 10-16-2023 take 600 mg by mouth every eight hours Gabapentin Active 600 MG PO Every 8 hours October 16, 2023 1:10pm Start: 08-15-2023 End: 10-02-2023 take 600 mg by mouth every six hours Gabapentin Discontinued 600 MG PO Every 6 hours August 15, 2023 12:00am October 02, 2023 10:34am Start: 11-10-2021 take 1 tablet by brandin th every twelve hours Gabapentin 600 MG 1 tablet Orally TWICE A DAY for 20 days Oct, Active Start: 11-10-2021 take 2 tablets by mo [facility] every twelve hours Gabapentin 600 MG 2 tablets Orally bid for 20 days Oct, Active Start: 09-29-2021 take 1-2 capsules by mouth twice daily Gabapentin 300 MG 1-2 capsule Orally twice a day for 30 day(s) Sep, Active Start: 12-05-2019 take 1 capsule by mo uth every twenty-four hours Gabapentin 300 MG 1 capsule Orally Once a day for 30 day(s) Nov, Active hydroCHLOROthiazide 12.5 mg oral tablet (1 source) Thiazide Diuretic take 1 tablet by mouth every twenty-four hours hydroCHLOROthiazide 12.5 MG 1 tablet in the morning Orally Once a day Active lamoTRIgine 200 mg oral tablet (8 sources) Mood Stabilizer, Anti-epileptic Agent Start: 2023 take 1 tablet by mouth once daily Lamotrigine (Lamictal) 200 mg tablet Active 200 MG PO Daily August 15, 2023 12:00am take 1 tablet by brandin th every twenty-four hours LaMICtal 200 MG 1 tablet Orally Once a day Active magnesium oxide 400 mg oral tablet (19 sources) Start: 12-09-2018 take 1 tablet by brnadin th every twenty-four hours Magnesium Oxide 400 MG [...] a day for 30 day(s) Jan, Active 24 hr metoprolol succinate 25 mg extended release oral tablet (14 sources) beta-Adrenergic Seema Start: 06-04-2021 take 12.5 mg by mouth once daily Metoprolol Succinate Active 12.5 MG PO Daily June 04, 2021 1:00am take 0.5 tablet by mouth once da kaiden Toprol XL 25 MG 1/2 tablet Orally Once a day Active Metoprolol Succi marcos ER Active nitroglycerin 0.4 mg sublingual tablet (6 sources) Nitrate Vasodilator Nitrostat 0. 4 MG Sublingual Active ondansetron 4 mg oral tablet (1 source) Serotonin-3 Receptor Antagonist Start: 020 take 1 tablet by mouth three times daily as needed for nausea Zofran 4 mg 1 tablet Orally TID as needed for nausea for 5 days May, Active pioglitazone 45 mg oral tablet (16 sources) Peroxisome Proliferator Receptor alpha Agonist, Peroxisome Proliferator Receptor gamma Agonist, Thiazolidinedione Start: 024 take 1 tablet by mouth once daily Pioglitazone (Actos) 45 mg tablet Active 45 MG PO Daily August 15, 2023 12:00am Start: 06-04-2021 End: 08-15-2023 take 45 mg by mouth once daily Pioglitazone Discontinu ed 45 MG PO Daily June 04, 2021 1:00am August 15, 2023 10:05am take 1 tablet by barndin th every twenty-four hours Actos 45 MG 1 tablet Orally Once a day Active Pioglitazone HCl Active Potassium (6 sources) Potassium Active sacubitril 49 mg / valsartan 51 mg oral tablet (3 sources) Angiotensin 2 Receptor Seema Start: 4 End: 4 take 0.5 tablet by mouth twice daily Sacubitril-Valsartan (Entresto) 49-51 mg tablet Active 0.5 TAB PO Twice daily October 16, 2023 1:24pm Tirzepatide (1 source) Start: 4 Tirzepatide (Mounjaro) 5 mg/0.5 mL pen injector Active 5 MG SUBCUT every week October 16, 2023 12:00am tiZANidine 4 mg oral tablet (16 sources) Central alpha-2 Adrenergic Agonist Start: 4 take 4 mg by mouth every eight hours Tizanidine Active 4 MG PO Every 8 hours August 15, 2023 12:00am Start: 06-04-2021 End: 08-13-2021 take 4 mg by mouth at bedtime Tizanidine Discontinued 4 MG PO Bedtime June 04, 2021 1:00am August 13, 2021 2:52pm Start: 06-04-2021 End: 08-13-2021 take 4 mg by mouth at bedtime Tizanidine Discontinued 4 MG PO Bedtime June 04, 2021 1:00am August 13, 2021 2:52pm tiZANidine HCl A ctive vitamin b12 2.5 mg sublingual tablet (4 sources) Vitamin B12 Start: 10-01-2023 take 2500 ug under the tongue once daily Cyanocobalamin (Vitamin B-12) Active 2500 MCG SUBLINGUAL Daily October 01, 2023 12:00am Start: 10-06-2019 take 1 tablet by brandin th once daily Cyanocobalamin 500 MCG 1 tablet Orally Once a day for 30 day(s) Sep, Not-Taking take 1 tablet by brandin th once daily Cyanocobalamin 500 MCG 1 Tablet Orally Once a day for 30 day(s) Not-Taking Vitamin D3 5000 UNIT (12 sources) take [...] a day for 30 day(s) Sep, Not-Taking ARIPiprazole 20 mg oral tablet (16 sources) Atypical Antipsychotic Start: 08-15-2023 End: 10-16-2023 take 20 mg by mouth once daily Aripiprazole Discontinued 20 MG PO Daily August 15, 2023 12:00am October 16, 2023 1:13pm Start: 06-04-2021 End: 08-15-2023 take 30 mg by mouth once daily Aripiprazole Discontinu ed 30 MG PO Daily June 04, 2021 1:00am August 15, 2023 10:05am take 1 tablet by brandin th every twenty-four hours Abilify 20 MG 1 tablet Orally Once a day Active take 1 tablet by brandin th every twenty-four hours ARIPiprazole 15 MG 1 tablet Orally Once a day takes 1100 Active calcium citrate 1040 mg oral tablet (1 source) Start: 10-06-2019 take 1 tablet by mouth once daily Calcium Citrate 1040 MG 1 tablet Orally Once a day for 30 day(s) Sep, Not-Taking carvedilol 25 mg oral tablet (1 source) alpha-Adrenergic Seema, beta-Adrenergic Seema take 1 tablet by mouth every twelve hours Carvedilol 25 MG 1 tablet Orally BID for 30 Not-Taking ciprofloxacin 500 mg oral tablet (7 sources) Quinolone Antimicrobial Start: 08-13-2021 End: 08-15-2023 take 1 tablet by mouth every two hours Ciprofloxacin Hcl (Cipro) 500 mg Tablet Discontinued 500 MG PO Q12H August 13, 2021 12:00am August 15, 2023 10:07am administer dose at least 2 hrs before/6 hrs after dairy products, calcium, zinc, and/or iron-containing products cyclobenzaprine hydrochloride 10 mg oral tablet (7 sources) Muscle Relaxant Start: 08-13-2021 End: 06-24-2022 take 10 mg by mouth three times daily Cyclobenzaprine Discontinued 10 MG PO Three times daily August 13, 2021 12:00am June 24, 2022 6:53pm doxycycline hyclate 100 mg oral capsule (1 source) Tetracycline-class Drug take 1 capsule by mouth every twelve hours Doxycycline Hyclate 100 MG 1 capsule Orally Twice a day for 30 Not-Taking glipiZIDE 5 mg oral tablet (19 sources) Sulfonylurea Start: 06-04-2021 End: 08-15-2023 take 5 mg by mouth once daily Glipizide Discontinued 5 MG PO Daily June 04, 2021 1:00am August 15, 2023 10:08am take 0.5 tablet by mouth once da kaiden glipiZIDE 5 MG 1/2 tablet Orally Once a day Active 24 hr isosorbide mononitrate 30 mg extended release oral tablet (14 sources) Nitrate Vasodilator Start: 06-04-2021 End: 10-02-2023 take 30 mg by mouth once daily Isosorbide Mononitrate Discontinued 30 MG PO Daily June 04, 2021 1:00am October 02, 2023 10:56am take 1 tablet by brandin th every twenty-four hours Isosorbide Mononitrate 10 MG 1 tablet Orally once a day for 30 day(s) Active lidocaine 0.05 mg/mg medicated patch (5 sources) Antiarrhythmic, Amide Local Anesthetic Start: 06-24-2022 End: 08-15-2023 apply 1 dose topically once daily Lidocaine Discontinued 1 PATCH TOPICAL Daily June 24, 2022 1:00am August 15, 2023 10:08am leave on most painful area for up to 12 hrs linagliptin 5 mg oral tablet (1 source) Dipeptidyl Peptidase 4 Inhibitor Start: 12-01-2019 take 1 tablet by mouth every twenty-four hours Tradjenta 5 MG 1 tablet Orally Once a day for 30 day(s) Nov, Not-Taking lisinopril 40 mg oral tablet (19 sources) Angiotensin Converting Enzyme Inhibitor Start: 06-04-2021 End: 08-15-2023 take 40 mg by mouth once daily Lisinopril Discontinued 40 MG PO Daily June 04, 2021 1:00am August 15, 2023 10:09am Methylprednisolone (5 sources) Corticosteroid Start: 06-24-2022 End: 08-15-2023 Methylprednisolone Discontinued 0 PO .COMPLEX June 24, 2022 1:00am August 15, 2023 10:09am orally per package directions Start: 06-24-2022 Methylpredniso lone Active 0 PO .COMPLEX June 24, 2022 1:00am orally per package directions Start: 06-24-2022 Methylpredniso lone Active 0 PO .COMPLEX June 24, 2022 12:00am orally per package directions mirtazapine 15 mg oral tablet (8 sources) Start: 06-04-2021 End: 08-15-2023 take 30 mg by mouth at bedtime Mirtazapine Discontinued 30 MG PO Bedtime June 04, 2021 1:00am August 15, 2023 10:11am Mirtazapine [facility], 0 Active mometasone furoate 0.05 mg/actuat metered dose nasal spray (2 sources) Corticosteroid Start: 10-01-2023 End: 10-16-2023 take 1 spray(s) nasal route once daily Mometasone (Allergy Nasal (Mometasone)) 50 mcg/actuation spray,non-aerosol Discontinued 2 SPRAY INTRANASAL Daily October 01, 2023 12:00am October 16, 2023 1:11pm administer into each nostril Multivitamin preparation (2 sources) Start: 10-06-2019 take 1 tablet by mouth once daily Multi-Vitamin - 1 tablet Orally Once a day for 30 day(s) Sep, Not-Taking Start: 03-22-2018 take 1 tablet by brandin th once daily Multi-Vitamin - 1 tablet Orally Once a day for 30 day(s) Mar, Active oxyCODONE hydrochloride 5 mg oral tablet (7 sources) Opioid Agonist Start: 08-13-2021 End: 06-24-2022 take 5-10 mg by mouth every six hours Oxycodone Discontinued 5 - 10 MG PO Q6H 50 8 August 13, 2021 June 24, 2022 6:53pm pramipexole dihydrochloride 0.25 mg oral tablet (2 sources) Nonergot Dopamine Agonist Start: 10-01-2023 End: 10-16-2023 take 0.25 mg by mouth once daily at bedtime Pramipexole Discontinued 0.25 MG PO Daily at bedtime October 01, 2023 12:00am October 16, 2023 1:12pm Prednisone (7 sources) Start: 08-13-2021 End: 06-24-2022 Prednisone Discontinued 1 dose pk PO per package directions August 13, 2021 12:00am June 24, 2022 6:53pm take 4 tabs for 3 days then take 3 tabs for 3 days then take 2 tabs for 3 days then take 1 tab for 3 days Start: 08-13-2021 End: 06-24-2022 Prednisone Discontinued 1 do se pk PO per package directions August 12, [...] then take 1 tab for 3 days spironolactone 25 mg oral tablet (13 sources) Aldosterone Antagonist Start: 10-01-2023 End: 10-02-2023 take 25 mg by mouth once daily Spironolactone Discontinued 25 MG PO Daily October 01, 2023 12:00am October 02, 2023 10:55am Start: 06-04-2021 take 50 mg by mouth once daily Spironolactone Active 50 MG PO Daily June 04, 2021 1:00am Spironolactone A ctive Tirzepatide (2 sources) Start: 10-01-2023 End: 10-16-2023 Tirzepatide (Mounjaro) 2.5 m g/0.5 mL pen injector Discontinued 2.5 MG SUBCUT .weekly October 01, 2023 12:00am October 16, 2023 1:12pm Start: 10-01-2023 Tirzepatide (M ounjaro) 2.5 mg/0.5 mL pen injector Active 2.5 MG SUBCUT .weekly October 01, 2023 12:00am Triamcinolone (2 sources) Corticosteroid Start: 10-01-2023 End: 10-16-2023 Triamcinolone Acetonide Disc ontinued 110 MCG INTRANASAL Daily October 01, 2023 12:00am October 16, 2023 1:12pm Start: 10-01-2023 Triamcinolone Acetonide Active 110 MCG INTRANASAL Daily October 01, 2023 12:00am Problems Active Problems Problem Classification Problem Date Documented Date Episodic/Chronic Acute and unspecified renal failure (5 sources) Acute renal failure syndrome; Translations: [Acute kidney failure, unspecified] Onset: 10-11-2023 10-10-2023 Episodic Allergic reactions (12 sources) Environmental allergy; Translations: [Other allergy status, other than to drugs and biological substances] Episodic Chronic kidney disease (20 sources) Chronic kidney disease stage 3; Translations: [Chronic kidney disease, stage 3 unspecified] Onset: 10-11-2023 07-11-2023 Chronic Chronic kidney disease (2 sources) Chronic kidney disease; Translations: [Chronic kidney disease, stage 3b] Onset: 08-10-2023 Congestive heart failure; nonhypertensive (2 sources) Chronic diastolic (congestive) heart failure; Translations: [Chronic diastolic (congestive) heart failure] Onset: 10-03-2022 Chronic Coronary atherosclerosis and other heart disease (10 sources) Coronary arteriosclerosis; Translations: [Atherosclerotic heart disease of [place] coronary artery without angina pectoris] Onset: 09-11-2022 08-11-2021 Chronic Deficiency and other anemia (1 source) Anemia in chronic kidney disease; Translations: [Anemia in chronic kidney disease] Onset: 10-01-2023 Chronic Diabetes mellitus with complications (20 sources) Type 2 diabetes mellitus; Translations: [Type 2 diabetes mellitus with hypoglycemia without coma] Onset: 10-02-2021 Chronic Diabetes mellitus without complication (4 sources) Type 2 diabetes mellitus without complications; Translations: [TYPE 2 DM WITHOUT COMPLICATIONS] Onset: 09-11-2022 Chronic Disorders of lipid metabolism (20 sources) Dyslipidemia; Translations: [Hyperlipidemia, unspecified] Onset: 01-26-2022 Chronic Esophageal disorders (13 sources) Gastroesophageal reflux disease; Translations: [Gastro-esophageal reflux disease without esophagitis] Chronic Essential hypertension (20 sources) Essential hypertension; Translations: [Essential (primary) hypertension] Onset: 09-11-2022 08-10-2021 Chronic Fluid and electrolyte disorders (7 sources) Hyperkalemia; Translations: [Hyperkalemia] Onset: 10-04-2021 Episodic Genitourinary symptoms and ill-defined conditions (12 sources) Delay when starting to pass urine; Translations: [Hesitancy of micturition] Episodic Headache; including migraine (7 sources) Tension-type headache; Translations: [Tension-type headache, unspecified, not intractable] 02-25-2020 Chronic Hypertension with complications and secondary hypertension (16 sources) Hypertensive renal disease; Translations: [Hypertensive chronic kidney disease with stage 1 through stage 4 chronic kidney disease, or unspecified chronic kidney disease] Onset: 08-10-2023 Chronic Malaise and fatigue (7 sources) Decline in functional status; Translations: [Other malaise] 08-10-2021 Episodic Mood disorders (2 sources) Bipolar disorder, unspecified; Translations: [BIPOLAR DISORDER UNSPECIFIED] Onset: 05-31-2022 Chronic Nonspecific chest pain (20 sources) Chest pain; Translations: [Other chest pain] Onset: 09-11-2022 06-04-2021 Episodic Nutritional deficiencies (17 sources) Vitamin D deficiency; Translations: [Vitamin D deficiency, unspecified] 10-10-2023 Chronic Nutritional deficiencies (10 sources) Cobalamin deficiency; Translations: [Deficiency of other specified B group vitamins] 10-10-2023 Episodic Other aftercare (1 source) penitentiary (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; Translations: [BREASTFEEDING PROGRAM COORDINATOR CURRENT USE OF ASPIRIN] Onset: 09-11-2022 Episodic Other aftercare (1 source) long term acute care registered nurse (current) use of oral hypoglycemic drugs; Translations: [BREASTFEEDING PROGRAM COORDINATOR USE ORAL HYPOGLYCEMIC DX] Onset: 09-11-2022 Episodic Other aftercare (1 source) Other predatory animal exterminator (current) drug therapy; Translations: [OTH RESIDENTIAL CURRENT DRUG THERAPY] Onset: 09-11-2022 Episodic Other [...] Chronic Other nutritional; endocrine; and metabolic disorders (14 sources) Hypomagnesemia; Translations: [Hypomagnesemia] 10-10-2023 Chronic Other nutritional; endocrine; and metabolic disorders (9 sources) Morbid obesity; Translations: [Morbid (severe) obesity due to excess calories] 07-11-2023 Chronic Other nutritional; endocrine; and metabolic disorders (8 sources) Morbid (severe) obesity due to excess calories; Translations: [Morbid obesity] Onset: 09-11-2022 Chronic Other nutritional; endocrine; and metabolic disorders (1 source) Body mass index (BMI) 50.0-59.9, adult; Translations: [BODY MASS INDEX BMI 50.0-59.9 ADULT] Onset: 09-11-2022 Chronic Other nutritional; endocrine; and metabolic disorders (1 source) Body mass index (BMI) 45.0-49.9, adult; Translations: [BODY MASS INDEX BMI 45.0-49.9 ADULT] Onset: 10-04-2021 Chronic Other nutritional; endocrine; and metabolic disorders (3 sources) Hypomagnesemia; Translations: [Disorders of magnesium metabolism] 08-15-2023 Chronic Other nutritional; endocrine; and metabolic disorders (2 sources) Hyperuricemia; Translations: [Hyperuricemia without signs of inflammatory arthritis and tophaceous disease] 10-10-2023 Episodic Other nutritional; endocrine; and metabolic disorders (3 sources) Hyperuricemia without signs of inflammatory arthritis and tophaceous disease; Translations: [Other abnormal blood chemistry] 08-15-2023 Episodic Residual codes; unclassified (12 sources) Sleep apnea; Translations: [Sleep apnea, unspecified] Chronic Residual codes; unclassified (19 sources) Obstructive sleep apnea syndrome; Translations: [Obstructive sleep apnea (adult) (pediatric)] Chronic Residual codes; unclassified (2 sources) Obstructive sleep apnea (adult) (pediatric); Translations: [OBSTRUCTIVE SLEEP APNEA] Onset: 09-11-2022 Chronic Residual codes; unclassified (6 sources) Localized edema; Translations: [Edema] Onset: 09-11-2022 Episodic Residual codes; unclassified (3 sources) Localized edema; Translations: [Localized edema] 07-11-2023 Episodic Spondylosis; intervertebral disc disorders; other back [...] unspecified; Translations: [ANEMIA UNSPECIFIED] Onset: 01-23-2022 Episodic Headache; including migraine (1 source) Headache; [...] Translations: [DYSPNEA UNSPECIFIED] Onset: 12-25-2021 Episodic Other screening for suspected conditions (not [...] Test Name Value Interpretation Reference Range Facility Basic Metabolic Panelon 09-15 GFR/1.73 sq M.predicted MDRD (S/P/Bld) [Vol rate/Area] 28.812 mL/min/{1.73_m2} Normal [facility] Comment on above: Performed By: #### P RAMOS CAMILO #### [address] Calcium [Mass/volume] in Ser um or PlasmaOrdered By: Fernando Rosenberg on 10-11-2023 Calcium [Mass/Vol] 9.7 mg/dL Normal 8.6-10.3 [facility] Comment on above: Result Comment: PERF ORMED BY: [place] [address] PATHOLOGIST CORPORATE DEVELOPMENT INTERN AIRC BUTLER M.D. Performed By: #### P LESLEE ADDONUAPLUS #### [facility] [address] [place] [address] [place] Carbon dioxide, total [Moles /volume] in Serum or PlasmaOrdered By: Fernando Rosenberg on 10-11-2023 CO2 [Moles/Vol] 26.7 mmol/L Normal 21.0-31.0 [facility] Comment on above: Performed By: #### P ROXANA CAMILOONUAPLUS #### [facility] [address] [place] [address] [place] Chloride [Moles/volume] in S brunilda or PlasmaOrdered By: Fernando Rosenberg on 10-11-2023 Chloride [Moles/Vol] 107 mmol/L Normal 98-107 [facility] Comment on above: Performed By: #### P ROXANA CAMILOONUAPLUS #### [facility] [address] [place] [address] [place] Creatinine [Mass/volume] in Serum or PlasmaOrdered By: Fernando Rosenberg on 10-11-2023 Creatinine [Mass/Vol] 2.04 mg/dL High 0.60-1.20 [facility] Comment on above: Performed By: #### P LESLEE ADDONUAPLUS #### [facility] [address] [place] [address] [place] Glucose [Mass/volume] in Ser um or PlasmaOrdered By: Fernando Doorestes on 10-11-2023 Glucose [Mass/Vol] 96 mg/dL Normal 70-100 [facility] Comment on above: ADA recommended refe rence rangeRandom Glucose Reference Range is dependent on time and content of last meal. Glucose of more than 200 mg/dL in a nonstressed, ambulatory subject supports the diagnosis of Diabetes Mellitus. Result Comment: [place] Glucose Reference Range is dependent on time and content of last meal. Glucose of more than 200 mg/dL in a nonstressed, ambulatory subject supports the diagnosis of Diabetes Mellitus. ADA recommended reference range Performed By: #### P JOSH CAMILOPLUS #### [facility] [address] No Panel InformationOrdered By: Fernando Rosenberg on 10-11-2023 Estimated GFR (CKD-EPI) 28.812 mL/Min [facility] Creatinine Clearance (Chem N/A [facility] Potassium [Moles/volume] in Serum or PlasmaOrdered By: Fernando Rosenberg on 10-11-2023 Potassium [Moles/Vol] 5.2 mmol/L High 3.5-5.1 [facility] Comment on above: Performed By: #### P JOSH CAMILOPLUS #### [facility] [address] [place] [address] Serum or plasma anion gap de terminationOrdered By: Fernando Rosenberg on 10-11-2023 Anion gap [Moles/Vol] 11.5 mmol/L Normal 6.0-15.0 [facility] Comment on above: Performed By: #### JOSH KINGPLUS #### [facility] [address] [place] [address] [place] Sodium [Moles/volume] in Ser um or PlasmaOrdered By: Fernando Rosenberg on 10-11-2023 Sodium [Moles/Vol] 140 mmol/L Normal 136-145 [facility] Comment on above: Performed By: #### P JOSH CAMILOPLUS #### [place] [address] [place] Urea nitrogen [Mass/volume] in Serum or PlasmaOrdered By: Fernando Rosenberg on 10-11-2023 Urea nitrogen [Mass/Vol] 41 mg/dL High 7-25 [facility] Comment on above: Performed By: #### P LESLEE, ADDONUAPLUS #### [address] 36on 10-02-2023 36 Patient made aware. I told her to make sure to call Dr. Siddiqui's office of neurology. Normal [place] Automated basophil %Ordered By: Fernandojessica Rosenberg on 10-02-2023 Basophils/100 WBC (Bld) 0.8 % Normal . [facility] Comment on above: Performed By: #### A DDONUAPLUS #### [address] Automated basophil countOrde red By: Fernando Rosenberg on 10-02-2023 Basophils (Bld) [#/Vol] 0.0 10*3/uL Normal 0.0-0.2 [facility] Comment on above: Result Comment: PERF ORMED BY: [place] [address] PATHOLOGIST CORPORATE DEVELOPMENT INTERN ARIC BUTLER M.D. Performed By: #### A DDONUAPLUS #### [address] Automated blood monocyte cou ntOrdered By: Fernando Rosenberg on 10-02-2023 Monocytes (Bld) [#/Vol] 0.3 10*3/uL Normal 0.0-0.8 [facility] Comment on above: Performed By: #### A DDONUAPLUS #### [address] Automated eosinophil %Ordere d By: Fernando Jeffkpor on 10-02-2023 Eosinophils/100 WBC (Bld) 3.4 % Normal . [facility] Comment on above: Performed By: #### A DDONUAPLUS #### [address] Automated eosinophil countOr dered By: Fernandojessica Rosenberg on 10-02-2023 Eosinophils (Bld) [#/Vol] 0.2 10*3/uL Normal 0.0-0.45 [facility] Comment on above: Performed By: #### A DDONUAPLUS #### [address] Automated monocyte %Ordered By: Fernando Rosenberg on 10-02-2023 Monocytes/100 WBC (Bld) 6.4 % Normal . [facility] Comment on above: Performed By: #### A DDONUAPLUS #### [address] Automated neutrophil %Ordere d By: Fernando Rosenberg on 10-02-2023 Neutrophils/100 WBC (Bld) 46.2 % Normal . [facility] Comment on above: Performed By: #### A DDONUAPLUS #### [address] Basic Metabolic Panelon 09-14 Creatinine Clr Calc Pharmacy 60.65 Normal [facility] Comment on above: Result Comment: PERF ORMED BY: [place] [address] PATHOLOGIST CORPORATE DEVELOPMENT INTERN ARIC BUTLER M.D. Performed By: #### A DDONUAPLUS #### [address] GFR/1.73 sq M.predicted MDRD (S/P/Bld) [Vol rate/Area] 41.013 mL/min/{1.73_m2} Normal [facility] Comment on above: Performed By: #### A DDONUAPLUS #### [address] Calcium [Mass/volume] in Ser um or PlasmaOrdered By: Fernando Rosenberg on 10-02-2023 Calcium [Mass/Vol] 9.0 mg/dL Normal 8.6-10.3 [facility] Comment on above: Performed By: #### A DDONUAPLUS #### [address] Capillary blood glucose timmy urement by glucometer (mass/volume)Ordered By: Fernando Rosenberg on 10-02-2023 Glucose [Mass/Vol] 93 mg/dL Normal [facility] Comment on above: Random Glucose Refer ence Range is dependent on time and content of last meal. Glucose of more than 200 mg/dL in a nonstressed, ambulatory subject supports the diagnosis of Diabetes Mellitus. Result Comment: [place] om Glucose Reference Range is dependent on time and content of last meal. Glucose of more than 200 mg/dL in a nonstressed, ambulatory subject supports the diagnosis of Diabetes Mellitus. PERFORMED BY: [place] [address] PATHOLOGIST CORPORATE DEVELOPMENT INTERN ARIC BUTLER M.D. Performed By: #### G PATRICA #### Point of Care testing , Carbon dioxide, total [Moles /volume] in Serum or PlasmaOrdered By: Fernando Rosenberg on 10-02-2023 CO2 [Moles/Vol] 26.9 mmol/L Normal 21.0-31.0 [facility] Comment on above: Performed By: #### A DDONUAPLUS #### [facility] [address] [place] [address] Chloride [Moles/volume] in S brunilda or PlasmaOrdered By: Fernando Rosenberg on 10-02-2023 Chloride [Moles/Vol] 110 mmol/L High 98-107 [facility] Comment on above: Performed By: #### A DDONUAPLUS #### [facility] [address] [place] [address] Complete Blood Count Auto Di ffon 10-02-2023 Mean Corpuscular HGB Conc 33.2 g/dL Normal 32.0-35.0 [facility] Comment on above: Performed By: #### A DDONUAPLUS #### [address] NRBC% 0.0 /100{WBC} Normal 0-0.5 [facility] Comment on above: Performed By: #### A DDONUAPLUS #### [address] Creatinine [Mass/volume] in Serum or PlasmaOrdered By: Fernando Rosenberg on 10-02-2023 Creatinine [Mass/Vol] 1.52 mg/dL Significan t change up 0.60-1.20 [facility] Comment on above: Delta: 2.27 on 09/30-0758 Performed By: #### A DDONUAPLUS #### [address] Erythrocyte distribution wid th [Ratio] by Automated countOrdered By: Fernando Rosenberg on 10-02-2023 Erythrocyte distribution width (RBC) [Ratio] 14.3 % Normal 11.9-15.3 [facility] Comment on above: Performed By: #### A DDONUAPLUS #### [address] Erythrocytes [#/volume] in B lood by Automated countOrdered By: Fernando Rosenberg on 10-02-2023 RBC (Bld) [#/Vol] 3.47 10*6/uL Low 3.60-5.00 [facility] Comment on above: Performed By: #### A DDONUAPLUS #### [address] Glucose Poct Glucometerson 0 10-02-2023 Glucose [Mass/Vol] 87 mg/dL Normal [facility] Comment on above: Result Comment: [facility] Glucose Reference Range is dependent on time and content of last meal. Glucose of more than 200 mg/dL in a nonstressed, ambulatory subject supports the diagnosis of Diabetes Mellitus. PERFORMED BY: [place] [address] PATHOLOGIST CORPORATE DEVELOPMENT INTERN ARIC BUTLER M.D. Performed By: #### A DDONUAPLUS #### [address] Glucose [Mass/volume] in Ser um or PlasmaOrdered By: Fernando Rosenberg on 10-02-2023 Glucose [Mass/Vol] 85 mg/dL Normal 70-100 [facility] Comment on above: ADA recommended refe rence rangeRandom Glucose Reference Range is dependent on time and content of last meal. Glucose of more than 200 mg/dL in a nonstressed, ambulatory subject supports the diagnosis of Diabetes Mellitus. Result Comment: [place] om Glucose Reference Range is dependent on time and content of last meal. Glucose of more than 200 mg/dL in a nonstressed, ambulatory subject supports the diagnosis of Diabetes Mellitus. ADA recommended reference range Performed By: #### A DDONUAPLUS #### [facility] [address] [place] [address] Hematocrit [Volume Fraction] of Blood by Automated countOrdered By: Fernando Rosenberg on 10-02-2023 Hematocrit (Bld) [Volume fraction] 31.5 % Low 34.0-46.4 [facility] Comment on above: Performed By: #### A DDONUAPLUS #### [place] [address] [place] Hemoglobin [Mass/volume] in BloodOrdered By: Fernando Rosenberg on 10-02-2023 Hemoglobin (Bld) [Mass/Vol] 10.4 g/dL Low 11.8-15.4 [facility] Comment on above: Performed By: #### A DDONUAPLUS #### [facility] [address] [place] [address] Leukocytes [#/volume] correc joaquin for nucleated erythrocytes in Blood by Automated counOrdered By: Fernando Rosenberg on 10-02-2023 WBC corrected for nucl RBC Auto (Bld) [#/Vol] 4.8 10*3/uL 3.8-11.6 [facility] Leukocytes [#/volume] in Blo od by Automated countOrdered By: Fernando Rosenberg on 10-02-2023 WBC (Bld) [#/Vol] 4.8 10*3/uL Normal 3.8-11.6 [facility] Comment on above: Performed By: #### A DDONUAPLUS #### [place] [address] [place] Lymphocytes [#/volume] in Bl ood by Automated countOrdered By: Fernando Rosenberg on 10-02-2023 Lymphocytes (Bld) [#/Vol] 2.1 10*3/uL Normal 1.00-4.8 [facility] Comment on above: Performed By: #### A DDONUAPLUS #### [address] Lymphocytes/100 leukocytes i n Blood by Automated countOrdered By: Fernando Rosenberg on 10-02-2023 Lymphocytes/100 WBC (Bld) 43.2 % Normal . [facility] Comment on above: Performed By: #### A DDONUAPLUS #### [address] MCH [Entitic mass] by Automa joaquin countOrdered By: Fernando Rosenberg on 10-02-2023 MCH (RBC) [Entitic mass] 30.1 pg Normal 24.7-34.3 [facility] Comment on above: Performed By: #### A DDONUAPLUS #### [address] MCHC Auto (RBC) [Mass/Vol]Or dered By: Fernando Rosenberg on 10-02-2023 MCHC (RBC) [Mass/Vol] 33.2 g/dL 32.0-35.0 [facility] MCV [Entitic volume] by Auto mated countOrdered By: Fernando Rosenberg on 10-02-2023 MCV (RBC) [Entitic vol] 90.7 fL Normal 80-100 [facility] Comment on above: Performed By: #### A DDONUAPLUS #### [address] Neutrophils [#/volume] in Bl ood by Automated countOrdered By: Fernando Rosenberg on 10-02-2023 Neutrophils (Bld) [#/Vol] 2.2 10*3/uL Normal 1.8-7.7 [facility] Comment on above: Performed By: #### A DDONUAPLUS #### [address] No Panel InformationOrdered By: Fernando Rosenberg on 10-02-2023 Estimated GFR (CKD-EPI) 41.013 mL/Min [facility] Creatinine Clearance (Chem 60.65 [facility] Nucleated erythrocytes [Pres ence] in Blood by Automated countOrdered By: Fernando Rosenberg on 10-02-2023 Nucleated RBC Auto Ql (Bld) 0.0 /100{WBC} 0-0.5 [facility] Platelet mean volume [Entiti c volume] in Blood by Automated countOrdered By: Fernando Rosenberg on 10-02-2023 Platelet mean volume (Bld) [Entitic vol] 9.2 fL Normal 6.3-10.7 [facility] Comment on above: Performed By: #### A DDONUAPLUS #### [facility] [address] [place] [address] Platelets [#/volume] in Bloo d by Automated countOrdered By: Fernando Rosenberg on 10-02-2023 Platelets (Bld) [#/Vol] 230 10*3/uL Normal 150-450 [facility] Comment on above: Performed By: #### A DDONUAPLUS #### [facility] [address] [place] [address] [place] Potassium [Moles/volume] in Serum or PlasmaOrdered By: Fernando Rosenberg on 10-02-2023 Potassium [Moles/Vol] 4.5 mmol/L Normal 3.5-5.1 [facility] Comment on above: Performed By: #### A DDONUAPLUS #### [facility] [address] [place] [address] Serum or plasma anion gap de terminationOrdered By: Fernando Rosenberg on 10-02-2023 Anion gap [Moles/Vol] 9.6 mmol/L Normal 6.0-15.0 [facility] Comment on above: Performed By: #### A DDONUAPLUS #### [facility] [address] [place] [address] [place] Sodium [Moles/volume] in Ser um or PlasmaOrdered By: Fernando Rosenberg on 10-02-2023 Sodium [Moles/Vol] 142 mmol/L Normal 136-145 [facility] Comment on above: Performed By: #### A DDONUAPLUS #### [address] Urea nitrogen [Mass/volume] in Serum or PlasmaOrdered By: Fernando Rosenberg on 10-02-2023 Urea nitrogen [Mass/Vol] 34 mg/dL High 7-25 [facility] Comment on above: Performed By: #### A DDONUAPLUS #### [facility] [address] [place] [address] Activated partial thrombopla stin time (aPTT) in platelet poor plasma by coagulation aOrdered By: Alma Deng on 10-01-2023 aPTT Coag (PPP) [Time] 30.1 s 25.1-36.5 [facility] Comment on above: A hematocrit value g reater than 55% may lead to inaccurate results in coagulation testing. Patients having hematocrit values >55% require a special collection tube for coagulation studies. Please contact the laboratory at [phone] for redraw instructions. Alanine aminotransferase [En zymatic activity/volume] in Serum or PlasmaOrdered By: Alma Deng on 10-01-2023 ALT [Catalytic activity/Vol] 19 U/L Normal 7-52 [facility] Comment on above: Order Comment: Name Collection Type:: Other Performed By: #### A DDONUAPLUS #### [facility] [address] [place], [place] [id number] [place] Albumin [Mass/volume] in Ser um or Plasma by Bromocresol green (BCG) dye binding methoOrdered By: Alma Deng on 10-01-2023 Albumin BCG dye [Mass/Vol] 3.9 g/dL 3.5-5.7 [facility] Alkaline phosphatase [Enzyma tic activity/volume] in Serum or PlasmaOrdered By: Alma Deng on 10-01-2023 ALP [Catalytic activity/Vol] 56 U/L Normal 34-104 [facility] Comment on above: Order Comment: Name Collection Type:: Other Performed By: #### A DDONUAPLUS #### [address] Aspartate aminotransferase [ Enzymatic activity/volume] in Serum or PlasmaOrdered By: Alma Huyuche on 10-01-2023 AST [Catalytic activity/Vol] 29 U/L Normal 13-39 [facility] Comment on above: Order Comment: Name Collection Type:: Other Performed By: #### A DDONUAPLUS #### [address] Bacteria [Presence] in Urine by AutomatedOrdered By: Alma Huyuche on 10-01-2023 Bacteria Auto Ql (U) None seen [HPF] None Seen [facility] Bilirubin Test strip Ql (U)O rdered By: Alma Huyuche on 10-01-2023 Bilirubin Ql (U) Negative Negative [facility] Bilirubin.total [Mass/volume ] in Serum or PlasmaOrdered By: Alma Deng on 10-01-2023 Bilirubin [Mass/Vol] 0.3 mg/dL Normal 0.3-1.0 [facility] Comment on above: Order Comment: Name Collection Type:: Other Performed By: #### A DDONUAPLUS #### [address] Color of Urine by AutoOrdere d By: Alma Deng on 10-01-2023 Color (U) Colorless Normal Yellow [facility] Comment on above: Order Comment: Name Collection Type:: Other Performed By: #### A DDONUAPLUS #### [address] Comprehensive Metabolic Pane mikayla 10-01-2023 Albumin [Mass/Vol] 3.9 g/dL Normal 3.5-5.7 [facility] Comment on above: Order Comment: Name Collection Type:: Other Performed By: #### A DDONUAPLUS #### [address] Anion gap [Moles/Vol] 10.8 mmol/L Normal 6.0-15.0 Th e [facility] Comment on above: Order Comment: Name Collection Type:: Other Performed By: #### A DDONUAPLUS #### [address] Calcium [Mass/Vol] 8.8 mg/dL Normal 8.6-10.3 [facility] Comment on above: Order Comment: Name Collection Type:: Other Performed By: #### A DDONUAPLUS #### [address] Chloride [Moles/Vol] 110 mmol/L High 98-107 [facility] Comment on above: Order Comment: Name Collection Type:: Other Performed By: #### A DDONUAPLUS #### [address] CO2 [Moles/Vol] 24.1 mmol/L Normal 21.0-31.0 [facility] Comment on above: Order Comment: Name Collection Type:: Other Performed By: #### A DDONUAPLUS #### [address] Creatinine [Mass/Vol] 2.27 mg/dL High 0.60-1.20 [facility] Comment on above: Order Comment: Name Collection Type:: Other Performed By: #### A DDONUAPLUS #### [address] Creatinine Clr Calc Pharmacy 40.81 Normal [facility] Comment on above: Order Comment: Name Collection Type:: Other Result Comment: PERF ORMED BY: [place] [address] PATHOLOGIST CORPORATE DEVELOPMENT INTERN ARIC BUTLER M.D. Performed By: #### A DDONUAPLUS #### [place] [address] [place] GFR/1.73 sq M.predicted MDRD (S/P/Bld) [Vol rate/Area] 25.346 mL/min/{1.73_m2} Normal [facility] Comment on above: Order Comment: Name Collection Type:: Other Performed By: #### A DDONUAPLUS #### [address] Glucose [Mass/Vol] 120 mg/dL High 70-100 [facility] Comment on above: Order Comment: Name Collection Type:: Other Result Comment: [place] Glucose Reference Range is dependent on time and content of last meal. Glucose of more than 200 mg/dL in a nonstressed, ambulatory subject supports the diagnosis of Diabetes Mellitus. ADA recommended reference range Performed By: #### A DDONUAPLUS #### [address] Potassium [Moles/Vol] 3.9 mmol/L Normal 3.5-5.1 [facility] Comment on above: Order Comment: Name Collection Type:: Other Performed By: #### A DDONUAPLUS #### [place] [address] [place] Sodium [Moles/Vol] 141 mmol/L Normal 136-145 [facility] Comment on above: Order Comment: Name Collection Type:: Other Performed By: #### A DDONUAPLUS #### [place] [address] [place] Urea nitrogen [Mass/Vol] 43 mg/dL High 7-25 [facility] Comment on above: Order Comment: Name Collection Type:: Other Performed By: #### A DDONUAPLUS #### [address] Creatinine [Mass/volume] in UrineOrdered By: Alma Deng on 10-01-2023 Creatinine (U) [Mass/Vol] 65.00 mg/dL [facility] Comment on above: No reference range e stablished Creatinine, Urine (Random)on 10-01-2023 Creatinine, Urine (Random) 65.00 mg/dL Normal [facility] Comment on above: Result Comment: No r eference range established PERFORMED BY: [place] [address] PATHOLOGIST [employer]PORATE DEVELOPMENT INTERN ARIC BUTLER M.D. Performed By: #### G PATRICA #### Point of Care testing , Dipstick and Microscopicon 0 10-01-2023 Bacteria,Urine None Seen Normal None Seen [facility] Comment on above: Order Comment: Name Collection Type:: Other Performed By: #### A DDONUAPLUS #### [address] Bilirubin,Urine Negative Normal Negative [facility] Comment on above: Order Comment: Name Collection Type:: Other Performed By: #### A DDONUAPLUS #### [address] Glucose Ql (U) Normal Normal Normal [facility] Comment on above: Order Comment: Name Collection Type:: Other Performed By: #### A DDONUAPLUS #### [address] Hyaline Casts,Urine 0-8 Normal 0-8 [facility] Comment on above: Order Comment: Name Collection Type:: Other Performed By: #### A DDONUAPLUS #### [place] [address] [place] Mucus,Urine Rare Normal [facility] Comment on above: Order Comment: Name Collection Type:: Other Result Comment: PERF ORMED BY: [place] [address] PATHOLOGIST CORPORATE DEVELOPMENT INTERN ARIC BUTLER M.D. Performed By: #### A DDONUAPLUS #### [place] [address] [place] Nitrite,Urine Negative Normal Negative [facility] Comment on above: Order Comment: Name Collection Type:: Other Performed By: #### A DDONUAPLUS #### [place] [address] [place] Occult Blood,Urine Negative Normal Negative [facility] Comment on above: Order Comment: Name Collection Type:: Other Result Comment: PERF ORMED BY: [place] [address] PATHOLOGIST CORPORATE DEVELOPMENT INTERN ARIC BUTLER M.D. Performed By: #### A DDONUAPLUS #### [address] Protein,Urine Negative Normal Negative [facility] Comment on above: Order Comment: Name Collection Type:: Other Performed By: #### A DDONUAPLUS #### [address] RBC,Urine None Seen Normal 0-4 [facility] Comment on above: Order Comment: Name Collection Type:: Other Performed By: #### A DDONUAPLUS #### [address] Specificy Cades,Urine 1.009 Normal 1.001-1.030 [facility] Comment on above: Order Comment: Name Collection Type:: Other Performed By: #### A DDONUAPLUS #### [address] Urobilinogen,Urine Normal Normal Normal [facility] Comment on above: Order Comment: Name Collection Type:: Other Performed By: #### A DDONUAPLUS #### [address] WBC,Urine 3-4 Normal 0-4 [facility] Comment on above: Order Comment: Name Collection Type:: Other Performed By: #### A DDONUAPLUS #### [address] Eosinophil,Urineon 4 Eosinophil,Urine 0 % Normal 0-1 [facility] Comment on above: Result Comment: PERF ORMED BY: [place] [address] PATHOLOGIST CORPORATE DEVELOPMENT INTERN ARIC BUTLER M.D. Performed By: #### G LULS #### Point of Care testing , Eosinophils detection in uri ne sediment by Nava stainOrdered By: Alma Deng on 10-01-2023 Eosinophils Nava stain Ql (Urine sed) 0 % 0-1 [facility] Epithelial cells.squamous [# /area] in Urine sediment by Automated countOrdered By: Alma Deng on 10-01-2023 Epithelial cells.squamous Auto (Urine sed) [#/Area] N/A [facility] Erythrocytes [#/area] in Uri ne sediment by Automated countOrdered By: Alma Huyuche on 10-01-2023 RBC Auto (Urine sed) [#/Area] None seen [HPF] 0-4 [facility] Glucose Poct Glucometerson 0 10-01-2023 Commemt1 Glu2: Cleaned Meter Normal [facility] Comment on above: Result Comment: PERF ORMED BY: [place] [address] PATHOLOGIST CORPORATE DEVELOPMENT INTERN ARIC BUTLER M.D. Performed By: #### A DDONUAPLUS #### [address] Glucose [Mass/Vol] 81 mg/dL Normal [facility] Comment on above: Result Comment: [place] om Glucose Reference Range is dependent on time and content of last meal. Glucose of more than 200 mg/dL in a nonstressed, ambulatory subject supports the diagnosis of Diabetes Mellitus. Performed By: #### A DDONUAPLUS #### [address] Glucose [Mass/Vol] 83 mg/dL Normal [facility] Comment on above: Result Comment: [place] om Glucose Reference Range is dependent on time and content of last meal. Glucose of more than 200 mg/dL in a nonstressed, ambulatory subject supports the diagnosis of Diabetes Mellitus. PERFORMED BY: [place] [address] PATHOLOGIST CORPORATE DEVELOPMENT INTERN ARIC BUTLER M.D. Performed By: #### G LULS #### Point of Care testing , Glucose [Mass/Vol] 117 mg/dL Normal [facility] Comment on above: Result Comment: [place] om Glucose Reference Range is dependent on time and content of last meal. Glucose of more than 200 mg/dL in a nonstressed, ambulatory subject supports the diagnosis of Diabetes Mellitus. PERFORMED BY: [place] [address] PATHOLOGIST CORPORATE DEVELOPMENT INTERN ARIC BUTLER M.D. Performed By: #### G LULS #### Point of Care testing , Glucose [Mass/Vol] 83 mg/dL Normal [facility] Comment on above: Result Comment: [facility] Glucose Reference Range is dependent on time and content of last meal. Glucose of more than 200 mg/dL in a nonstressed, ambulatory subject supports the diagnosis of Diabetes Mellitus. PERFORMED BY: [place] [address] PATHOLOGIST CORPORATE DEVELOPMENT INTERN ARIC BUTLER M.D. Performed By: #### G PATRICA #### Point of Care testing , Glucose [Mass/volume] in Uri ne by Test stripOrdered By: Alma Deng on 10-01-2023 Glucose Test strip (U) [Mass/Vol] Normal mg/dL Normal [facility] Hemoglobin Test strip Ql (U) Ordered By: Alma Deng on 10-01-2023 Hemoglobin Ql (U) Negative Negative [facility] Hemogram CBC Without Diffon 10-01-2023 Erythrocyte distribution width (RBC) [Ratio] 14.7 % Normal 11.9-15.3 [facility] Comment on above: Performed By: #### A DDONUAPLUS #### [address] Hematocrit (Bld) [Volume fraction] 32.9 % Low 34.0-46.4 [facility] Comment on above: Performed By: #### A DDONUAPLUS #### [facility] [address] [place] [address] Hemoglobin (Bld) [Mass/Vol] 11.0 g/dL Low 11.8-15.4 [facility] Comment on above: Performed By: #### A DDONUAPLUS #### [place] [address] [place] MCH (RBC) [Entitic mass] 30.1 pg Normal 24.7-34.3 [facility] Comment on above: Performed By: #### A DDONUAPLUS #### [place] [address] [place] MCV (RBC) [Entitic vol] 89.6 fL Normal 80-100 [facility] Comment on above: Performed By: #### A DDONUAPLUS #### [address] Mean Corpuscular HGB Conc 33.6 g/dL Normal 32.0-35.0 [facility] Comment on above: Performed By: #### A DDONUAPLUS #### [address] Platelet mean volume (Bld) [Entitic vol] 10.5 fL Normal 6.3-10.7 [facility] Comment on above: Result Comment: PERF ORMED BY: [place] [address] PATHOLOGIST CORPORATE DEVELOPMENT INTERN ARIC BUTLER M.D. Performed By: #### A DDONUAPLUS #### [address] Platelets (Bld) [#/Vol] 320 10*3/uL Normal 150-450 [facility] Comment on above: Performed By: #### A DDONUAPLUS #### [address] RBC (Bld) [#/Vol] 3.67 10*6/uL Normal 3.60-5.00 [facility] Comment on above: Performed By: #### A DDONUAPLUS #### [place] [address] [place] WBC (Bld) [#/Vol] 5.0 10*3/uL Normal 3.8-11.6 [facility] Comment on above: Performed By: #### A DDONUAPLUS #### [place] [address] [place] Hyaline casts [#/area] in Ur ine sediment by Automated countOrdered By: Alma Deng on 10-01-2023 Hyaline casts Auto (Urine sed) [#/Area] 0-8 [LPF] 0-8 [facility] INR in Platelet poor plasma by Coagulation assayOrdered By: Alma Deng on 06-17-2024 INR Coag (PPP) [Relative time] 1.1 {INR} Normal [facility] Comment on above: INR Therapeutic Rang e A) Pre- and Peroperative OAT started two weeks before surgery. NOT HIP SURGERY: 1.5 - 2.5 HIP SURGERY: 2 - 3B) Primary and secondary prevention of venous THROMBOSIS: 2 - 3C) Active venous thrombosis, pulmonary embolismand prevention of recurrent venous thrombosis: 2 - 3D) Prevention of arterial thromboembolismincluding patients with mechanical heart valves: 3 - 4.5 Order Comment: Name Collection Type:: Other Result Comment: INR Therapeutic Range A) Pre- and Peroperative OAT started two weeks before surgery. NOT HIP SURGERY: 1.5 - 2.5 HIP SURGERY: 2 - 3 B) Primary and secondary prevention of venous THROMBOSIS: 2 - 3 C) Active venous thrombosis, pulmonary embolism and prevention of recurrent venous thrombosis: 2 - 3 D) Prevention of arterial thromboembolism including patients with mechanical heart valves: 3 - 4.5 Performed By: #### A DDONUAPLUS #### [facility] [address] [place] [address] [place] Ketones [Presence] in Urine by Test stripOrdered By: Alma Deng on 10-01-2023 Ketones Ql (U) Negative Normal Negative [facility] Comment on above: Order Comment: Name Collection Type:: Other Performed By: #### A DDONUAPLUS #### [place] [address] [place] Leukocyte esterase [Presence ] in Urine by Test stripOrdered By: Alma Deng on 10-01-2023 Leukocyte esterase Test strip Ql (U) 1+ High Negative [facility] Comment on above: Order Comment: Name Collection Type:: Other Performed By: #### A DDONUAPLUS #### [facility] [address] [place] [address] [place] Leukocytes [#/area] in Urine sediment by Automated countOrdered By: Alma Deng on 10-01-2023 WBC Auto (Urine sed) [#/Area] 3-4 [HPF] 0-4 [facility] Mucus [Presence] in Urine by AutomatedOrdered By: Alma Deng on 10-01-2023 Mucus Auto Ql (U) Rare [LPF] [facility] Nitrite Test strip Ql (U)Ord ered By: Mayratania Huyuche on 10-01-2023 Nitrite Ql (U) Negative Negative [facility] No Panel InformationOrdered By: Fernando Rosenberg on 10-01-2023 Bedside Glucose Comment Glu2: cleaned meter [facility] Partial Thromboplastin Timeo n 10-01-2023 aPTT Coag (Bld) [Time] 30.1 s Normal 25.1-36.5 Th e [facility] Comment on above: Order Comment: Name Collection Type:: Other Result Comment: A he matocrit value greater than 55% may lead to inaccurate results in coagulation testing. Patients having hematocrit values >55% require a special collection tube for coagulation studies. Please contact the laboratory at [phone] for redraw instructions. PERFORMED BY: [place] [address] PATHOLOGIST CORPORATE DEVELOPMENT INTERN ARIC BUTLER M.D. Performed By: #### A DDONUAPLUS #### [facility] [address] [place], [place] [id number] [facility] Protein Test strip (U) [Mass /Vol]Ordered By: Alma Deng on 10-01-2023 Protein (U) [Mass/Vol] Negative Negative [facility] Protein [Mass/volume] in Ser um or PlasmaOrdered By: Alma Deng on 10-01-2023 Protein [Mass/Vol] 6.1 g/dL Low 6.4-8.9 [facility] Comment on above: Order Comment: Name Collection Type:: Other Performed By: #### A DDONUAPLUS #### [facility] [address] [place] [address] Prothrombin time (PT)Ordered By: Alma Deng on 10-01-2023 PT Coag (PPP) [Time] 12.2 s Normal 9.0-12.9 [facility] Comment on above: A hematocrit value g reater than 55% may lead to inaccurate results in coagulation testing. Patients having hematocrit values >55% require a special collection tube for coagulation studies. Please contact the laboratory at [phone] for redraw instructions. Order Comment: Name Collection Type:: Other Result Comment: A he matocrit value greater than 55% may lead to inaccurate results in coagulation testing. Patients having hematocrit values >55% require a special collection tube for coagulation studies. Please contact the laboratory at [phone] for redraw instructions. Performed By: #### A DDONUAPLUS #### [address] Serum globulin measurement b y calculation (mass/volume)Ordered By: Alma Deng on 10-01-2023 Globulin (S) [Mass/Vol] 2.2 g/dL Normal [facility] Comment on above: Order Comment: Name Collection Type:: Other Performed By: #### A DDONUAPLUS #### [address] Serum or plasma albumin/glob ulin mass ratioOrdered By: Alma Deng on 10-01-2023 Albumin/Globulin [Mass ratio] 1.8 {ratio} Normal [facility] Comment on above: Order Comment: Name Collection Type:: Other Performed By: #### A DDONUAPLUS #### [address] Sodium [Moles/volume] in Uri neOrdered By: Alma Huyuche on 10-01-2023 Sodium (U) [Moles/Vol] 54.0 mmol/L Normal F [facility] Comment on above: No reference range e stablished Result Comment: No r eference range established Performed By: #### G LULS #### Point of Care testing , Specific gravity Test strip (U) [Rel density]Ordered By: Alma Deng on 10-01-2023 Specific gravity (U) [Rel density] 1.009 1.001-1.030 [facility] Urine appearanceOrdered By: Alma Deng on 10-01-2023 Appearance (U) Clear Normal Clear [facility] Comment on above: Order Comment: Name Collection Type:: Other Performed By: #### A DDONUAPLUS #### [address] [place] [address] [facility] Urobilinogen Test strip (U) [Mass/Vol]Ordered By: Mayratania Huyuche on 10-01-2023 Urobilinogen (U) [Mass/Vol] Normal mg/dL Normal [facility] pH of Urine by Test stripOrd ered By: Alma Deng on 10-01-2023 pH (U) 5.5 [pH] Normal 5.0-9.0 [facility] Comment on above: Order Comment: Name Collection Type:: Other Performed By: #### A DDONUAPLUS #### [facility] [address] [place], [place] [id number] [facility] 36on 09-20-2023 36 Patient's insurance denied a carotid duplex again. Is there anything else you'd like me to do? :( Normal [place] Office Visiton 09-11-2023 Follow-up visit [id number] Nithin Humphreys 1970 F Date Provider Department Center 09/11/2023 Pranay-TK [facility] No family history on file Level of Service:64676 [place] OFFICE/OUTPATIENT ESTABLISHED MOD MDM 30 MIN Normal [place] Albumin [Mass/volume] in Ser um or Plasma by Bromocresol green (BCG) dye binding methoOrdered By: Halle Mac on 08-10-2023 Albumin BCG dye [Mass/Vol] 4.0 g/dL 3.5-5.7 [facility] Automated erythrocytes count in urine sediment (number/area)Ordered By: Halle Mac on 08-10-2023 RBC Auto (Urine sed) [#/Area] None seen [HPF] 0-4 [facility] Automated leukocytes count i n urine sediment (number/area)Ordered By: Halle Mac on 08-10-2023 WBC Auto (Urine sed) [#/Area] 3-4 [HPF] 0-4 [facility] Automated urine color determ inationOrdered By: Halle Mac on 08-10-2023 Color (U) Yellow Normal Yellow [facility] Comment on above: Order Comment: Name Collection Type:: Clean-Voided Midstream Performed By: #### P ROCEDEL ADDONUAPLUS #### [facility] [address] Bilirubin Test strip Ql (U)O rdered By: Halle Mac on 08-10-2023 Bilirubin Ql (U) Negative Negative [facility] Calcium [Mass/volume] in Ser um or PlasmaOrdered By: Halle Mac on 08-10-2023 Calcium [Mass/Vol] 9.3 mg/dL Normal 8.6-10.3 [facility] Comment on above: Performed By: #### G LULS #### Point of Care testing , Carbon dioxide, total [Moles /volume] in Serum or PlasmaOrdered By: Halle Mac on 08-10-2023 CO2 [Moles/Vol] 24.8 mmol/L Normal 21.0-31.0 [facility] Comment on above: Performed By: #### G LULS #### Point of Care testing , Chloride [Moles/volume] in S brunilda or PlasmaOrdered By: Halle Mac on 08-10-2023 Chloride [Moles/Vol] 110 mmol/L High 98-107 [facility] Comment on above: Performed By: #### G LULS #### Point of Care testing , Creatinine [Mass/volume] in Serum or PlasmaOrdered By: Halle Mac on 08-10-2023 Creatinine [Mass/Vol] 1.59 mg/dL High 0.60-1.20 [facility] Comment on above: Performed By: #### G LULS #### Point of Care testing , Creatinine [Mass/volume] in UrineOrdered By: Halle Mac on 08-10-2023 Creatinine (U) [Mass/Vol] 92.0 mg/dL [facility] Comment on above: No reference range e stablished Dipstick and Microscopicon 0 08-10-2023 Appearance (U) Clear Normal Clear [facility] Comment on above: Order Comment: Name Collection Type:: Clean-Voided Midstream Performed By: #### P ROCRERAT ADDONUAPLUS #### [facility] [address] [place] [address] [place] Bacteria,Urine None Seen Normal None Seen [facility] Comment on above: Order Comment: Name Collection Type:: Clean-Voided Midstream Performed By: #### P ROCRERAT, ADDONUAPLUS #### [address] Bilirubin,Urine Negative Normal Negative [facility] Comment on above: Order Comment: Name Collection Type:: Clean-Voided Midstream Performed By: #### P ROCRERAT, ADDONUAPLUS #### [address] Glucose Ql (U) Normal Normal Normal [facility] Comment on above: Order Comment: Name Collection Type:: Clean-Voided Midstream Performed By: #### P ROCRERAT, ADDONUAPLUS #### [place] [address] [place] Hyaline Casts,Urine None Seen Normal 0-8 [facility] Comment on above: Order Comment: Name Collection Type:: Clean-Voided Midstream Result Comment: PERF ORMED BY: [place] [address] PATHOLOGIST [employer]PORATE DEVELOPMENT INTERN ARIC BUTLER M.D. Performed By: #### P ROCRERAT, ADDONUAPLUS #### [address] Ketones Ql (U) Negative Normal Negative [facility] Comment on above: Order Comment: Name Collection Type:: Clean-Voided Midstream Performed By: #### P ROCRERAT, ADDONUAPLUS #### [address] Leukocyte esterase Test strip Ql (U) 2+ High Negative [facility] Comment on above: Order Comment: Name Collection Type:: Clean-Voided Midstream Performed By: #### P ROCRERAT, ADDONUAPLUS #### [place] [address] [place] Nitrite,Urine Negative Normal Negative [facility] Comment on above: Order Comment: Name Collection Type:: Clean-Voided Midstream Performed By: #### P ROCRERAT, ADDONUAPLUS #### [address] Occult Blood,Urine Negative Normal Negative [facility] Comment on above: Order Comment: Name Collection Type:: Clean-Voided Midstream Result Comment: PERF ORMED BY: [place] [address] PATHOLOGIST CORPORATE DEVELOPMENT INTERN ARIC BUTLER M.D. Performed By: #### P ROCRERAT, ADDONUAPLUS #### [address] Protein,Urine Negative Normal Negative [facility] Comment on above: Order Comment: Name Collection Type:: Clean-Voided Midstream Performed By: #### P ROCRERAT, ADDONUAPLUS #### [address] RBC,Urine None Seen Normal 0-4 [facility] Comment on above: Order Comment: Name Collection Type:: Clean-Voided Midstream Performed By: #### P ROCRERAT, ADDONUAPLUS #### [address] Specificy Cades,Urine 1.015 Normal 1.001-1.030 [facility] Comment on above: Order Comment: Name Collection Type:: Clean-Voided Midstream Performed By: #### P ROCRERAT, ADDONUAPLUS #### [address] Squamous Epithelial Cell,Urine None Seen Normal 0-2 [facility] Comment on above: Order Comment: Name Collection Type:: Clean-Voided Midstream Performed By: #### P ROCRERAT, ADDONUAPLUS #### [address] Urobilinogen,Urine Normal Normal Normal [facility] Comment on above: Order Comment: Name Collection Type:: Clean-Voided Midstream Performed By: #### P ROCRERAT, ADDONUAPLUS #### [address] [place] [address] [facility] WBC,Urine 3-4 Normal 0-4 [facility] Comment on above: Order Comment: Name Collection Type:: Clean-Voided Midstream Performed By: #### P RAMOS CAMILO #### [facility] [id number] [facility] Erythrocyte distribution wid th [Ratio] by Automated countOrdered By: Halle Mac on 08-10-2023 Erythrocyte distribution width (RBC) [Ratio] 15.1 % Normal 11.9-15.3 [facility] Comment on above: Performed By: #### G LULS #### Point of Care testing , Erythrocytes [#/volume] in B lood by Automated countOrdered By: Halle Mac on 08-10-2023 RBC (Bld) [#/Vol] 3.89 10*6/uL Normal 3.60-5.00 [facility] Comment on above: Performed By: #### G LUBESSIE #### Point of Care testing , Ferritin [Mass/volume] in Se rum or PlasmaOrdered By: Halle Mac on 08-10-2023 Ferritin [Mass/Vol] 62.9 ng/mL Normal 11.0-306.8 [facility] Comment on above: Performed By: #### G LULS #### Point of Care testing , Folate [Mass/volume] in Seru m or PlasmaOrdered By: Halle Mac on 08-10-2023 Folate [Mass/Vol] 15.7 ng/mL >5.9 [facility] Comment on above: Folate reference ran ge: >5.9 ng/mlThe WHO technical consultation on folate and vitamin [id number] has determined that folate concentrations lessthan 4 ng/ml are considered deficient. Glucose [Mass/volume] in Ser um or PlasmaOrdered By: Halle Mac on 08-10-2023 Glucose [Mass/Vol] 94 mg/dL Normal 70-100 [facility] Comment on above: ADA recommended refe rence rangeRandom Glucose Reference Range is dependent on time and content of last meal. Glucose of more than 200 mg/dL in a nonstressed, ambulatory subject supports the diagnosis of Diabetes Mellitus. Result Comment: [place] Glucose Reference Range is dependent on time and content of last meal. Glucose of more than 200 mg/dL in a nonstressed, ambulatory subject supports the diagnosis of Diabetes Mellitus. ADA recommended reference range Performed By: #### G LULS #### Point of Care testing , Hematocrit [Volume Fraction] of Blood by Automated countOrdered By: Halle Mac on 08-10-2023 Hematocrit (Bld) [Volume fraction] 35.0 % Normal 34.0-46.4 [facility] Comment on above: Performed By: #### G LULS #### Point of Care testing , Hemoglobin [Mass/volume] in BloodOrdered By: Halle Mac on 08-10-2023 Hemoglobin (Bld) [Mass/Vol] 11.5 g/dL Low 11.8-15.4 [facility] Comment on above: Performed By: #### G LULS #### Point of Care testing , Hemogram CBC Without Diffon 08-10-2023 Mean Corpuscular HGB Conc 32.9 g/dL Normal 32.0-35.0 [facility] Comment on above: Performed By: #### G LULS #### Point of Care testing , WBC (Bld) [#/Vol] 4.0 10*3/uL Normal 3.8-11.6 [facility] Comment on above: Performed By: #### G LULS #### Point of Care testing , Iron [Mass/volume] in Serum or PlasmaOrdered By: Halle Mac on 08-10-2023 Iron [Mass/Vol] 75 ug/dL Normal 50-212 [facility] Comment on above: Performed By: #### G LULS #### Point of Care testing , Iron and TIBC Profileon 07-16 % Iron Saturation 15.6 % Low 20-50 [facility] Comment on above: Performed By: #### G LULS #### Point of Care testing , Total Iron Binding Capacity 480 ug/dL High 255-450 [facility] Comment on above: Performed By: #### G LULS #### Point of Care testing , Iron binding capacity [Mass/ volume] in Serum or PlasmaOrdered By: Halle Mac on 08-10-2023 Iron binding capacity [Mass/Vol] 480 ug/dL High 255-450 [facility] Iron saturation [Mass Fracti on] in Serum or PlasmaOrdered By: Halle Mac on 08-10-2023 Iron saturation [Mass fraction] 15.6 % Low 20-50 [facility] Ketones Auto test strip (U) [Mass/Vol]Ordered By: Halle Mac on 08-10-2023 Ketones (U) [Mass/Vol] Negative Negative [facility] - UrinalysisOrder ed By: Halle Mac on 08-10-2023 Hyaline casts LM Ql (Urine sed) None seen [LPF] 0-8 [facility] Leukocytes [#/volume] correc joaquin for nucleated erythrocytes in Blood by Automated counOrdered By: Halel Mac on 08-10-2023 WBC corrected for nucl RBC Auto (Bld) [#/Vol] 4.0 10*3/uL 3.8-11.6 [facility] MCH [Entitic mass] by Automa joaquin countOrdered By: Halle Mac on 08-10-2023 MCH (RBC) [Entitic mass] 29.6 pg Normal 24.7-34.3 [facility] Comment on above: Performed By: #### G PATRICA #### Point of Care testing , MCHC Auto (RBC) [Mass/Vol]Or dered By: Halle Mac on 08-10-2023 MCHC (RBC) [Mass/Vol] 32.9 g/dL 32.0-35.0 [facility] MCV [Entitic volume] by Auto mated countOrdered By: Halle Mac on 08-10-2023 MCV (RBC) [Entitic vol] 90.0 fL Normal 80-100 [facility] Comment on above: Performed By: #### G PATRICA #### Point of Care testing , Magnesium [Mass/volume] in S brunilda or PlasmaOrdered By: Halle Mac on 08-10-2023 Magnesium [Mass/Vol] 1.9 mg/dL Normal 1.9-2.7 [facility] Comment on above: Performed By: #### G LULS #### Point of Care testing , Nitrite Test strip Ql (U)Ord ered By: Halle Mac on 08-10-2023 Nitrite Ql (U) Negative Negative [facility] No Panel InformationOrdered By: Halle Mac on 08-10-2023 Estimated GFR (CKD-EPI) 38.856 mL/Min [facility] Creatinine Clearance (Chem N/A [facility] Parathyrin.intact [Mass/volu me] in Serum or PlasmaOrdered By: Halle Mac on 08-10-2023 Parathyrin.intact [Mass/Vol] 38.7 pg/mL [facility] Parathyroid Hormone Intacton 08-10-2023 Parathyroid Hormone Intact 38.7 pg/mL Normal [facility] Comment on above: Result Comment: PERF ORMED BY: [facility] [address] [place] [address] PATHOLOGIST [employer]OP[employer] INTERN ARIC BUTLER M.D. Performed By: #### G LUBESSIE #### Point of Care testing , Phosphate [Mass/volume] in S brunilda or PlasmaOrdered By: Halle Mac on 08-10-2023 Phosphate [Mass/Vol] 3.7 mg/dL Normal 2.5-4.5 [facility] Comment on above: Performed By: #### G LULS #### Point of Care testing , Platelet mean volume [Entiti c volume] in Blood by Automated countOrdered By: Halle Mac on 08-10-2023 Platelet mean volume (Bld) [Entitic vol] 9.8 fL Normal 6.3-10.7 [facility] Comment on above: Result Comment: PERF ORMED BY: [facility] [address] [place] [address] PATHOLOGIST [employer]ELOP[employer] INTERN ARIC BUTLER M.D. Performed By: #### G LULS #### Point of Care testing , Platelets [#/volume] in Bloo d by Automated countOrdered By: Halle Mac on 08-10-2023 Platelets (Bld) [#/Vol] 217 10*3/uL Normal 150-450 [facility] Comment on above: Performed By: #### G PATRICA #### Point of Care testing , Potassium [Moles/volume] in Serum or PlasmaOrdered By: Halle Mac on 08-10-2023 Potassium [Moles/Vol] 4.5 mmol/L Normal 3.5-5.1 [facility] Comment on above: Performed By: #### G PATRICA #### Point of Care testing , Protein Auto test strip (U) [Mass/Vol]Ordered By: Halle Mac on 08-10-2023 Protein (U) [Mass/Vol] Negative Negative [facility] Protein Creat Ratio Ur Rando mon 08-10-2023 Creatinine, Urine (Random) 92.0 mg/dL Normal [facility] Comment on above: Result Comment: No r eference range established Performed By: #### P JOSH CAMILOPLUS #### [facility] [address] Protein, Urine (Random) < 4 Normal 0-9 [facility] Comment on above: Performed By: #### P JOSH CAMILOPLUS #### [facility] [address] [place] [address] Urine Protein/Creatinine Ratio Not performed Normal 0-200 [facility] Comment on above: Result Comment: PERF ORMED BY: [place] [address] PATHOLOGIST [employer] DEVELOP[employer] INTERN ARIC BUTLER M.D. Performed By: #### P ROXANA CAMILOONUAPLUS #### [facility] [address] [place] [address] [place] Protein [Mass/volume] in Uri neOrdered By: Halle Mac on 08-10-2023 Protein (U) [Mass/Vol] mg/dL 0-9 [facility] Renal Function Panelon 08-09 Albumin [Mass/Vol] 4.0 g/dL Normal 3.5-5.7 [facility] Comment on above: Performed By: #### G LULS #### Point of Care testing , GFR/1.73 sq M.predicted MDRD (S/P/Bld) [Vol rate/Area] 38.856 mL/min/{1.73_m2} Normal [facility] Comment on above: Performed By: #### G LULS #### Point of Care testing , Serum or plasma anion gap de terminationOrdered By: Halle Mac on 08-10-2023 Anion gap [Moles/Vol] 11.7 mmol/L Normal 6.0-15.0 [facility] Comment on above: Performed By: #### G LULS #### Point of Care testing , Sodium [Moles/volume] in Ser um or PlasmaOrdered By: Halle Mac on 08-10-2023 Sodium [Moles/Vol] 142 mmol/L Normal 136-145 [facility] Comment on above: Performed By: #### G LULS #### Point of Care testing , Specific gravity Auto test s trip (U) [Rel density]Ordered By: Halle Mac on 08-10-2023 Specific gravity (U) [Rel density] 1.015 1.001-1.030 [facility] Squamous epithelial cells de tection in urine sediment by light microscopyOrdered By: Halle Mac on 08-10-2023 Epithelial cells.squamous LM Ql (Urine sed) None seen [HPF] 0-2 [facility] Transferrin [Mass/volume] in Serum or PlasmaOrdered By: Halle Mac on 08-10-2023 Transferrin [Mass/Vol] 343 mg/dL Normal 203-362 [facility] Comment on above: Performed By: #### G LULS #### Point of Care testing , Urate [Mass/volume] in Serum or PlasmaOrdered By: Halle Mac on 08-10-2023 Urate [Mass/Vol] 8.6 mg/dL High 2.3-6.6 [facility] Comment on above: Performed By: #### G LULS #### Point of Care testing , Urea nitrogen [Mass/volume] in Serum or PlasmaOrdered By: Halle Mac on 08-10-2023 Urea nitrogen [Mass/Vol] 32 mg/dL High 7-25 [facility] Comment on above: Performed By: #### G PATRICA #### Point of Care testing , Urine bacteria detection by automated methodOrdered By: Halle Mac on 08-10-2023 Bacteria Auto Ql (U) None seen None Seen [facility] Urine clarity by refractomet ry automatedOrdered By: Halle Mac on 08-10-2023 Clarity Refractometry automated (U) Clear Clear [facility] Urine glucose measurement by automated test strip (mass/volume)Ordered By: Halle Mac on 08-10-2023 Glucose Auto test strip (U) [Mass/Vol] Normal mg/dL Normal [facility] Urine hemoglobin detection b y automated test stripOrdered By: Halle Mac on 08-10-2023 Hemoglobin Auto test strip Ql (U) Negative Negative [facility] Urine leukocyte esterase det ection by automated test stripOrdered By: Halle Mac on 08-10-2023 Leukocyte esterase Auto test strip Ql (U) 2+ High Negative [facility] Urine pH measurement by auto mated test stripOrdered By: Halle Mac on 08-10-2023 pH (U) 5.5 [pH] Normal 5.0-9.0 [facility] Comment on above: Order Comment: Name Collection Type:: Clean-Voided Midstream Performed By: #### P RAMOS CAMILO #### [address] Urine protein/creatinine rat ioOrdered By: Halle aMc on 08-10-2023 Protein/Creatinine (U) [Ratio] TNP [facility] Comment on above: Test not performed Urobilinogen Auto test strip (U) [Mass/Vol]Ordered By: Halle Mac on 08-10-2023 Urobilinogen (U) [Mass/Vol] Normal mg/dL Normal [facility] Vit. B12/Folate Profileon Folate 15.7 ng/mL Normal >5.9 [facility] Comment on above: Result Comment: Maria te reference range: >5.9 ng/ml The WHO technical consultation on folate and vitamin b12 deficiencies has determined that folate concentrations less than 4 ng/ml are considered deficient. Performed By: #### A DDONUAPLUS #### [address] Vitamin B12 ser/plasOrdered By: Halle Mac on 08-10-2023 Cobalamin (Vitamin B12) [Mass/Vol] 164 pg/mL Low 180-914 [facility] Comment on above: Performed By: #### A DDONUAPLUS #### [address] Vitamin D 25 Hydroxy Totalon 08-10-2023 Vitamin D 25 Hydroxy Total 22.4 ng/mL Low 30-100 [facility] Comment on above: Result Comment: AWAIS MIN D STATUS 25([place])VITAMIN D RANGE (ng/mL) Deficient <20 Insufficient 20 to <30 Sufficient 30 to 100 Reference: Nicole Almonte, Ed LI, et al. Evaluation,treatment, and prevention of vitamin D deficiency; an Endocrine Society clinical practice guideline. JCEM. 2010; 96(7):1911-30. PERFORMED BY: [place] [address] PATHOLOGIST [employer] DEVELOPMENT INTERN ARIC BUTLER M.D. Performed By: #### A DDONUAPLUS #### [address] Vitamin D+Metabolites [Mass/ volume] in Serum or PlasmaOrdered By: Halle Mac on 08-10-2023 Vitamin D+Metabolites [Mass/Vol] 22.4 ng/mL Low 30-100 [facility] Comment on above: VITAMIN D STATUS 25( [place])VITAMIN D RANGE (ng/mL) Deficient <20 Insufficient 20 to <30Sufficient 30 to 100Reference: Nicole Almonte, Ed LI, et al. Evaluation,treatment, and prevention of vitamin D deficiency; an Endocrine Society clinical practice guideline. JCEM. 2010; 96(7):1911-30. Valproate [Mass/volume] in S brunilda or PlasmaOrdered By: Fauzia Huffman on 06-19-2023 Valproate [Mass/Vol] 14.5 ug/mL 50.0-100.0 [facility] Comment on above: Last dose: - Valproic Acid (in house)on 0 06-19-2023 Valproic Acid (in house) 14.5 ug/mL Low 50.0-100.0 [facility] Comment on above: Result Comment: Last dose: - PERFORMED BY: [place] [address] PATHOLOGIST [employer] DEVELOPMENT INTERN ARIC BUTLER M.D. Performed By: #### P JOSH CAMILOPLUS #### [place] [address] [place] Alanine aminotransferase [En zymatic activity/volume] in Serum or PlasmaOrdered By: Halle Mac on 05-17-2023 ALT [Catalytic activity/Vol] 16 U/L Normal 7-52 [facility] Comment on above: Order Comment: Name Collection Type:: Clean-Voided Midstream Performed By: #### P JOSH CAMILOPLUS #### [facility] [address] [place] [address] [place] Albumin [Mass/volume] in Ser um or Plasma by Bromocresol green (BCG) dye binding methoOrdered By: Halle Mac on 05-17-2023 Albumin BCG dye [Mass/Vol] 4.3 g/dL 3.5-5.7 [facility] Alkaline phosphatase [Enzyma tic activity/volume] in Serum or PlasmaOrdered By: Halle Mac on 05-17-2023 ALP [Catalytic activity/Vol] 61 U/L Normal 34-104 [facility] Comment on above: Order Comment: Name Collection Type:: Clean-Voided Midstream Performed By: #### P ROXANA CAMILOONUAPLUS #### [facility] [address] [place] [address] [place] Aspartate aminotransferase [ Enzymatic activity/volume] in Serum or PlasmaOrdered By: Halle Mac on 05-17-2023 AST [Catalytic activity/Vol] 23 U/L Normal 13-39 [facility] Comment on above: Order Comment: Name Collection Type:: Clean-Voided Midstream Performed By: #### P MYLES CAMILOUAPLUS #### [facility] [address] Automated erythrocytes count in urine sediment (number/area)Ordered By: Halle Mac on 05-17-2023 RBC Auto (Urine sed) [#/Area] 3-4 [HPF] 0-4 [facility] Automated leukocytes count i n urine sediment (number/area)Ordered By: Halle Mac on 05-17-2023 WBC Auto (Urine sed) [#/Area] 10-19 [HPF] 0-4 [facility] Automated urine color determ inationOrdered By: Halle Mac on 05-17-2023 Color (U) Dark yellow Critically abnormal Yellow [facility] Comment on above: Order Comment: Name Collection Type:: Clean-Voided Midstream Performed By: #### P ROXANA CAMILOONUAPLUS #### [facility] [address] Bilirubin Test strip Ql (U)O rdered By: Halle Mac on 05-17-2023 Bilirubin Ql (U) 2+ Negative [facility] Bilirubin.total [Mass/volume ] in Serum or PlasmaOrdered By: Halle Mac on 05-17-2023 Bilirubin [Mass/Vol] 0.5 mg/dL Normal 0.3-1.0 [facility] Comment on above: Order Comment: Name Collection Type:: Clean-Voided Midstream Performed By: #### P LESLEE ADDONUAPLUS #### [facility] [address] Calcium [Mass/volume] in Ser um or PlasmaOrdered By: Halle Mac on 05-17-2023 Calcium [Mass/Vol] 9.3 mg/dL Normal 8.6-10.3 [facility] Comment on above: Order Comment: Name Collection Type:: Clean-Voided Midstream Performed By: #### P ROXANA CAMILOONUAPLUS #### [address] Carbon dioxide, total [Moles /volume] in Serum or PlasmaOrdered By: Halle Mac on 05-17-2023 CO2 [Moles/Vol] 28.0 mmol/L Normal 21.0-31.0 [facility] Comment on above: Order Comment: Name Collection Type:: Clean-Voided Midstream Performed By: #### P ROCRERAT, ADDONUAPLUS #### [address] Casts typing in urine sedime nt by light microscopyOrdered By: Halle Mac on 05-17-2023 Casts LM Nom (Urine sed) None seen [LPF] None Seen [facility] Chloride [Moles/volume] in S brunilda or PlasmaOrdered By: Halle Mac on 05-17-2023 Chloride [Moles/Vol] 107 mmol/L Normal 98-107 [facility] Comment on above: Order Comment: Name Collection Type:: Clean-Voided Midstream Performed By: #### P ROCRERAT, ADDONUAPLUS #### [address] Comprehensive Metabolic Pane mikayla 05-17-2023 Albumin [Mass/Vol] 4.3 g/dL Normal 3.5-5.7 [facility] Comment on above: Order Comment: Name Collection Type:: Clean-Voided Midstream Performed By: #### P ROCRERAT, ADDONUAPLUS #### [place] [address] [place] GFR/1.73 sq M.predicted MDRD (S/P/Bld) [Vol rate/Area] 41.013 mL/min/{1.73_m2} Normal [facility] Comment on above: Order Comment: Name Collection Type:: Clean-Voided Midstream Performed By: #### P ROCRERAT, ADDONUAPLUS #### [place] [address] [place] Creatinine [Mass/volume] in Serum or PlasmaOrdered By: aHlle Mac on 05-17-2023 Creatinine [Mass/Vol] 1.52 mg/dL High 0.60-1.20 [facility] Comment on above: Order Comment: Name Collection Type:: Clean-Voided Midstream Performed By: #### P ROCRERAT, ADDONUAPLUS #### [facility] [address] [place] [address] Creatinine [Mass/volume] in UrineOrdered By: Halle Mac on 05-17-2023 Creatinine (U) [Mass/Vol] mg/dL 11.0-20.0 [facility] Dipstick and Microscopicon 0 05-17-2023 Appearance (U) Cloudy Critically abnormal Clear [facility] Comment on above: Order Comment: Name Collection Type:: Clean-Voided Midstream Performed By: #### P ROCRERAT, ADDONUAPLUS #### [address] Bacteria,Urine None Seen Normal None Seen [facility] Comment on above: Order Comment: Name Collection Type:: Clean-Voided Midstream Performed By: #### P ROCRERAT, ADDONUAPLUS #### [place] [address] [place] Bilirubin,Urine 2+ High Negative [facility] Comment on above: Order Comment: Name Collection Type:: Clean-Voided Midstream Performed By: #### P ROCRERAT, ADDONUAPLUS #### [facility] [address] [place] [address] [place] Fine Granular Casts,Urine 5-9 High 0-1 [facility] Comment on above: Order Comment: Name Collection Type:: Clean-Voided Midstream Performed By: #### P ROCRERAT, ADDONUAPLUS #### [place] [address] [place] Glucose Ql (U) Normal Normal Normal [facility] Comment on above: Order Comment: Name Collection Type:: Clean-Voided Midstream Performed By: #### P ROCRERAT, ADDONUAPLUS #### [place] [id number] [place] Hyaline Casts,Urine None Seen Normal 0-8 [facility] Comment on above: Order Comment: Name Collection Type:: Clean-Voided Midstream Performed By: #### P ROCRERAT, ADDONUAPLUS #### [facility] [address] [place] [address] [place] Ketones Ql (U) 1+ High Negative [facility] Comment on above: Order Comment: Name Collection Type:: Clean-Voided Midstream Performed By: #### P ROCRERAT, ADDONUAPLUS #### [place] [address] [place] Leukocyte esterase Test strip Ql (U) 1+ High Negative [facility] Comment on above: Order Comment: Name Collection Type:: Clean-Voided Midstream Performed By: #### P ROCRERAT, ADDONUAPLUS #### [place] [address] [place] Mucus,Urine 3+ Critically abnormal [facility] Comment on above: Order Comment: Name Collection Type:: Clean-Voided Midstream Performed By: #### P ROCRERAT, ADDONUAPLUS #### [facility] [address] [place] [address] [place] Nitrite,Urine Negative Normal Negative [facility] Comment on above: Order Comment: Name Collection Type:: Clean-Voided Midstream Performed By: #### P ROCRERAT, ADDONUAPLUS #### [facility] [address] [place] [address] [place] Occult Blood,Urine Negative Normal Negative [facility] Comment on above: Order Comment: Name Collection Type:: Clean-Voided Midstream Result Comment: PERF ORMED BY: [place] [address] PATHOLOGIST [employer] DEVELOP[employer] INTERN ARIC BUTLER M.D. Performed By: #### P ROCRERAT, ADDONUAPLUS #### [address] Other Casts,Urine None Seen Normal None Seen [facility] Comment on above: Order Comment: Name Collection Type:: Clean-Voided Midstream Performed By: #### P ROCRERAT, ADDONUAPLUS #### [address] RBC,Urine 3-4 Normal 0-4 [facility] Comment on above: Order Comment: Name Collection Type:: Clean-Voided Midstream Performed By: #### P ROCRERAT, ADDONUAPLUS #### [address] Specificy Cades,Urine 1.025 Normal 1.001-1.030 [facility] Comment on above: Order Comment: Name Collection Type:: Clean-Voided Midstream Performed By: #### P ROCRERAT, ADDONUAPLUS #### [address] Squamous Epithelial Cell,Urine 3-4 High 0-2 [facility] Comment on above: Order Comment: Name Collection Type:: Clean-Voided Midstream Performed By: #### P ROCRERAT, ADDONUAPLUS #### [address] Urobilinogen,Urine Normal Normal Normal [facility] Comment on above: Order Comment: Name Collection Type:: Clean-Voided Midstream Performed By: #### P ROCRERAT, ADDONUAPLUS #### [address] WBC,Urine 10-19 High 0-4 [facility] Comment on above: Order Comment: Name Collection Type:: Clean-Voided Midstream Performed By: #### P ROCRERAT, ADDONUAPLUS #### [address] Yeast,Urine None Seen Normal None Seen [facility] Comment on above: Order Comment: Name Collection Type:: Clean-Voided Midstream Result Comment: PERF ORMED BY: [place] [address] PATHOLOGIST CORPORATE DEVELOPMENT INTERN ARIC BUTLER M.D. Performed By: #### P ROCRERAT, ADDONUAPLUS #### [address] [address] [place] [address] [place] Erythrocyte distribution wid th [Ratio] by Automated countOrdered By: Halle Mac on 05-17-2023 Erythrocyte distribution width (RBC) [Ratio] 13.4 % Normal 11.9-15.3 [facility] Comment on above: Order Comment: Reaso n for Exam Chronic kidney disease, stage 3b;Hypertensive nephropathy;Di Performed By: #### C BCNO #### [facility] [address] Erythrocytes [#/volume] in B lood by Automated countOrdered By: Halle Mac on 05-17-2023 RBC (Bld) [#/Vol] 4.03 10*6/uL Normal 3.60-5.00 [facility] Comment on above: Order Comment: Reaso n for Exam Chronic kidney disease, stage 3b;Hypertensive nephropathy;Di Performed By: #### C BCNO #### [facility] [address] [place] [address] Ferritin [Mass/volume] in Se rum or PlasmaOrdered By: Halle Mac on 05-17-2023 Ferritin [Mass/Vol] 51.8 ng/mL Normal 11.0-306.8 [facility] Comment on above: Order Comment: Name Collection Type:: Clean-Voided Midstream Performed By: #### P LESLEE, ADDONUAPLUS #### [facility] [address] [place] [address] Fine granular cast count in urine sediment by microscopy (number/low power field )Ordered By: Halle Mac on 05-17-2023 Fine Granular Casts LM.LPF (Urine sed) [#/Area] 5-9 [LPF] 0-1 [facility] Glucose [Mass/volume] in Ser um or PlasmaOrdered By: Halle Mac on 05-17-2023 Glucose [Mass/Vol] 123 mg/dL High 70-100 [facility] Comment on above: ADA recommended refe rence rangeRandom Glucose Reference Range is dependent on time and content of last meal. Glucose of more than 200 mg/dL in a nonstressed, ambulatory subject supports the diagnosis of Diabetes Mellitus. Order Comment: Name Collection Type:: Clean-Voided Midstream Result Comment: [place] om Glucose Reference Range is dependent on time and content of last meal. Glucose of more than 200 mg/dL in a nonstressed, ambulatory subject supports the diagnosis of Diabetes Mellitus. ADA recommended reference range Performed By: #### P ROCRERAT, ADDONUAPLUS #### [address] Hematocrit [Volume Fraction] of Blood by Automated countOrdered By: Halle Mac on 05-17-2023 Hematocrit (Bld) [Volume fraction] 36.1 % Normal 34.0-46.4 [facility] Comment on above: Order Comment: Reaso n for Exam Chronic kidney disease, stage 3b;Hypertensive nephropathy;Di Performed By: #### C BCNO #### [address] Hemoglobin [Mass/volume] in BloodOrdered By: Halle Mac on 05-17-2023 Hemoglobin (Bld) [Mass/Vol] 11.8 g/dL Normal 11.8-15.4 [facility] Comment on above: Order Comment: Reaso n for Exam Chronic kidney disease, stage 3b;Hypertensive nephropathy;Di Performed By: #### C BCNO #### [address] Hemogram CBC Without Diffon 05-17-2023 Mean Corpuscular HGB Conc 32.8 g/dL Normal 32.0-35.0 [facility] Comment on above: Order Comment: Reaso n for Exam Chronic kidney disease, stage 3b;Hypertensive nephropathy;Di Performed By: #### C BCNO #### [place] [id number] [place] WBC (Bld) [#/Vol] 5.5 10*3/uL Normal 3.8-11.6 [facility] Comment on above: Order Comment: Reaso n for Exam Chronic kidney disease, stage 3b;Hypertensive nephropathy;Di Performed By: #### C BCNO #### [place] [address] [place] Iron [Mass/volume] in Serum or PlasmaOrdered By: Halle Mac on 05-17-2023 Iron [Mass/Vol] 57 ug/dL Normal 50-212 [facility] Comment on above: Order Comment: Name Collection Type:: Clean-Voided Midstream Performed By: #### P ROCRERAT, ADDONUAPLUS #### [facility] [address] [id number] [place] Iron and TIBC Profileon % Iron Saturation 10.6 % Low 20-50 [facility] Comment on above: Order Comment: Name Collection Type:: Clean-Voided Midstream Performed By: #### P ROCRERAT, ADDONUAPLUS #### [facility] [address] [place], [place] [id number] [facility] Total Iron Binding Capacity 538 ug/dL High 255-450 [facility] Comment on above: Order Comment: Name Collection Type:: Clean-Voided Midstream Performed By: #### P ROCRERAT, ADDONUAPLUS #### [facility] [address] [place], [place] [id number] [facility] Iron binding capacity [Mass/ volume] in Serum or PlasmaOrdered By: Halle Mac on 05-17-2023 Iron binding capacity [Mass/Vol] 538 ug/dL 255-450 [facility] Iron saturation [Mass Fracti on] in Serum or PlasmaOrdered By: Halle Mac on 05-17-2023 Iron saturation [Mass fraction] 10.6 % 20-50 [facility] Ketones Auto test strip (U) [Mass/Vol]Ordered By: Halle Mac on 05-17-2023 Ketones (U) [Mass/Vol] 1+ Negative [facility] - UrinalysisOrder ed By: Halle Mac on 05-17-2023 Hyaline casts LM Ql (Urine sed) None seen [LPF] 0-8 [facility] Leukocytes [#/volume] correc joaquin for nucleated erythrocytes in Blood by Automated counOrdered By: Halle Mac on 05-17-2023 WBC corrected for nucl RBC Auto (Bld) [#/Vol] 5.5 10*3/uL 3.8-11.6 [facility] MCH [Entitic mass] by Automa joaquin countOrdered By: Halle Mac on 05-17-2023 MCH (RBC) [Entitic mass] 29.4 pg Normal 24.7-34.3 [facility] Comment on above: Order Comment: Reaso n for Exam Chronic kidney disease, stage 3b;Hypertensive nephropathy;Di Performed By: #### C BCNO #### [facility] [address] MCHC Auto (RBC) [Mass/Vol]Or dered By: Halle Mac on 05-17-2023 MCHC (RBC) [Mass/Vol] 32.8 g/dL 32.0-35.0 [facility] MCV [Entitic volume] by Auto mated countOrdered By: Halle Mac on 05-17-2023 MCV (RBC) [Entitic vol] 89.4 fL Normal 80-100 [facility] Comment on above: Order Comment: Reaso n for Exam Chronic kidney disease, stage 3b;Hypertensive nephropathy;Di Performed By: #### C BCNO #### [facility] [address] [place] [address] Magnesium [Mass/volume] in S brunilda or PlasmaOrdered By: Halle Mac on 05-17-2023 Magnesium [Mass/Vol] 2.0 mg/dL Normal 1.9-2.7 [facility] Comment on above: Order Comment: Name Collection Type:: Clean-Voided Midstream Performed By: #### P RAMOS CAMILO #### [facility] [address] [place] [address] Mucus LM Ql (Urine sed)Order ed By: Halle Mac on 05-17-2023 Mucus Ql (Urine sed) 3+ [LPF] [facility] Nitrite Test strip Ql (U)Ord ered By: Halle Mac on 05-17-2023 Nitrite Ql (U) Negative Negative [facility] No Panel InformationOrdered By: Halle Mac on 05-17-2023 Estimated GFR (CKD-EPI) 41.013 mL/Min [facility] Creatinine Clearance (Chem N/A [facility] Parathyrin.intact [Mass/volu me] in Serum or PlasmaOrdered By: Halle Mac on 05-17-2023 Parathyrin.intact [Mass/Vol] 36.3 pg/mL [facility] Parathyroid Hormone Intacton 05-17-2023 Parathyroid Hormone Intact 36.3 pg/mL Normal [facility] Comment on above: Order Comment: Reaso n for Exam Chronic kidney disease, stage 3b;Hypertensive nephropathy;Di Result Comment: PERF ORMED BY: [place] [address] PATHOLOGIST CORPORATE DEVELOPMENT INTERN ARIC BUTLER M.D. Performed By: #### P TH #### [facility] [address] [place] [address] [place] Phosphate [Mass/volume] in S brunilda or PlasmaOrdered By: Halle Mac on 05-17-2023 Phosphate [Mass/Vol] 4.4 mg/dL Normal 2.5-4.5 [facility] Comment on above: Order Comment: Name Collection Type:: Clean-Voided Midstream Performed By: #### P ROCREWESTON, ADDONUAPLUS #### [facility] [address] [place] [address] [place] Platelet mean volume [Entiti c volume] in Blood by Automated countOrdered By: Halle Mac on 05-17-2023 Platelet mean volume (Bld) [Entitic vol] 9.5 fL Normal 6.3-10.7 [facility] Comment on above: Order Comment: Reaso n for Exam Chronic kidney disease, stage 3b;Hypertensive nephropathy;Di Result Comment: PERF ORMED BY: [place] [address] PATHOLOGIST CORPORATE DEVELOPMENT INTERN ARIC BUTLER M.D. Performed By: #### C BCNO #### [facility] [address] [place], [place] [id number] [place] Platelets [#/volume] in Bloo d by Automated countOrdered By: Halle Mac on 05-17-2023 Platelets (Bld) [#/Vol] 233 10*3/uL Normal 150-450 [facility] Comment on above: Order Comment: Reaso n for Exam Chronic kidney disease, stage 3b;Hypertensive nephropathy;Di Performed By: #### C BCNO #### [facility] [address] [id number] [place] Potassium [Moles/volume] in Serum or PlasmaOrdered By: Halle Mac on 05-17-2023 Potassium [Moles/Vol] 3.8 mmol/L Normal 3.5-5.1 [facility] Comment on above: Order Comment: Name Collection Type:: Clean-Voided Midstream Performed By: #### P ROCRERAT, ADDONUAPLUS #### [facility] [address] [place] [address] [place] Protein Creat Ratio Ur Rando mon 05-17-2023 Creatinine, Urine (Random) > 300.0 High 11.0-20.0 [facility] Comment on above: Order Comment: Name Collection Type:: Clean-Voided Midstream Performed By: #### P ROCRERAT, ADDONUAPLUS #### [place] [address] [place] Urine Protein/Creatinine Ratio Not performed Normal 0-200 [facility] Comment on above: Order Comment: Name Collection Type:: Clean-Voided Midstream Result Comment: PERF ORMED BY: [place] [address] PATHOLOGIST CORPORATE DEVELOPMENT INTERN ARIC BUTLER M.D. Performed By: #### P ROCRERAT, ADDONUAPLUS #### [place] [address] [place] Protein [Mass/volume] in Ser um or PlasmaOrdered By: Halle Mac on 05-17-2023 Protein [Mass/Vol] 6.6 g/dL Normal 6.4-8.9 [facility] Comment on above: Order Comment: Name Collection Type:: Clean-Voided Midstream Performed By: #### P ROCRERAT, ADDONUAPLUS #### [facility] [address] [place], [place] [address] [place] Protein [Mass/volume] in Uri neOrdered By: Halle Mac on 05-17-2023 Protein (U) [Mass/Vol] 35 mg/dL High 0-9 [facility] Comment on above: Order Comment: Name Collection Type:: Clean-Voided Midstream Performed By: #### P ROCRERAT, ADDONUAPLUS #### [facility] [address] [place] [address] Serum globulin measurement b y calculation (mass/volume)Ordered By: Halle Mac on 05-17-2023 Globulin (S) [Mass/Vol] 2.3 g/dL Normal [facility] Comment on above: Order Comment: Name Collection Type:: Clean-Voided Midstream Performed By: #### P ROCRERAT, ADDONUAPLUS #### [facility] [address] [place] [address] Serum or plasma albumin/glob ulin mass ratioOrdered By: Halle Mac on 05-17-2023 Albumin/Globulin [Mass ratio] 1.9 {ratio} Normal [facility] Comment on above: Order Comment: Name Collection Type:: Clean-Voided Midstream Performed By: #### P ROCREWESTON, ADDONUAPLUS #### [facility] [address] [place] [address] Serum or plasma anion gap de terminationOrdered By: Halle Mac on 05-17-2023 Anion gap [Moles/Vol] 10.8 mmol/L Normal 6.0-15.0 [facility] Comment on above: Order Comment: Name Collection Type:: Clean-Voided Midstream Performed By: #### P ROCRERAT, ADDONUAPLUS #### [facility] [address] [place] [address] [place] Sodium [Moles/volume] in Ser um or PlasmaOrdered By: Halle Mac on 05-17-2023 Sodium [Moles/Vol] 142 mmol/L Normal 136-145 [facility] Comment on above: Order Comment: Name Collection Type:: Clean-Voided Midstream Performed By: #### P ROCRERAT, ADDONUAPLUS #### [facility] [address] Specific gravity Auto test s trip (U) [Rel density]Ordered By: Halle Mac on 05-17-2023 Specific gravity (U) [Rel density] 1.025 1.001-1.030 [facility] Squamous epithelial cells de tection in urine sediment by light microscopyOrdered By: Halle Mac on 05-17-2023 Epithelial cells.squamous LM Ql (Urine sed) 3-4 [HPF] 0-2 [facility] Transferrin [Mass/volume] in Serum or PlasmaOrdered By: Halle Mac on 05-17-2023 Transferrin [Mass/Vol] 384 mg/dL High 203-362 [facility] Comment on above: Order Comment: Name Collection Type:: Clean-Voided Midstream Performed By: #### P ROCREWESTON, ADDONUAPLUS #### [facility] [address] [place] [address] [place] Urate [Mass/volume] in Serum or PlasmaOrdered By: Halle Mac on 05-17-2023 Urate [Mass/Vol] 7.3 mg/dL High 2.3-6.6 [facility] Comment on above: Order Comment: Name Collection Type:: Clean-Voided Midstream Performed By: #### P ROCREWESTON, ADDONUAPLUS #### [facility] [address] [place] [address] [place] Urea nitrogen [Mass/volume] in Serum or PlasmaOrdered By: Halle Mac on 05-17-2023 Urea nitrogen [Mass/Vol] 26 mg/dL High 7-25 [facility] Comment on above: Order Comment: Name Collection Type:: Clean-Voided Midstream Performed By: #### P ROCRERAT, ADDONUAPLUS #### [facility] [address] [place] [address] [place] Urine Cultureon 05-17-2023 Bacteria identified Cx Nom (U) 50,000 colonies/ml mixed bacterial skin contaminants 2 Days PERFORMED BY: [place] [address] PATHOLOGIST CORPORATE DEVELOPMENT INTERN ARIC BUTLER M.D. Normal [facility] Comment on above: Performed By: #### P MYLES CAMILOUAPLUS #### [facility] [address] [place] [address] Urine bacteria detection by automated methodOrdered By: Halle Mac on 05-17-2023 Bacteria Auto Ql (U) None seen None Seen [facility] Urine clarity by refractomet ry automatedOrdered By: Halle Mac on 05-17-2023 Clarity Refractometry automated (U) Cloudy Clear [facility] Urine culture routineOrdered By: Halle Mac on 05-17-2023 Bacteria identified Cx Nom (U) 2 Days [facility] Urine glucose measurement by automated test strip (mass/volume)Ordered By: Halle Mac on 05-17-2023 Glucose Auto test strip (U) [Mass/Vol] Normal mg/dL Normal [facility] Urine hemoglobin detection b y automated test stripOrdered By: Halle Mac on 05-17-2023 Hemoglobin Auto test strip Ql (U) Negative Negative [facility] Urine leukocyte esterase det ection by automated test stripOrdered By: Halle Mac on 05-17-2023 Leukocyte esterase Auto test strip Ql (U) 1+ Negative [facility] Urine pH measurement by auto mated test stripOrdered By: Halle Mac on 05-17-2023 pH (U) 5.0 [pH] Normal 5.0-9.0 [facility] Comment on above: Order Comment: Name Collection Type:: Clean-Voided Midstream Performed By: #### P ROXANA CAMILOONUAPLUS #### [facility] [address] [place] [address] [place] Urine protein measurement by automated test strip (mass/volume)Ordered By: Halle Mac on 05-17-2023 Protein (U) [Mass/Vol] 30 mg/dL High Negative [facility] Comment on above: Order Comment: Name Collection Type:: Clean-Voided Midstream Performed By: #### P ROXANA CAMILOONUAPLUS #### [facility] [address] [place] [address] [place] Urine protein/creatinine rat ioOrdered By: Halle Mac on 05-17-2023 Protein/Creatinine (U) [Ratio] TNP [facility] Comment on above: Test not performed Urobilinogen Auto test strip (U) [Mass/Vol]Ordered By: Halle Mac on 05-17-2023 Urobilinogen (U) [Mass/Vol] Normal mg/dL Normal [facility] Valproate [Mass/volume] in S brunilda or PlasmaOrdered By: Fauzia Huffman on 05-17-2023 Valproate [Mass/Vol] 24.0 ug/mL 50.0-100.0 [facility] Comment on above: Last dose: - Valproic Acid (in house)on 0 05-17-2023 Valproic Acid (in house) 24.0 ug/mL Low 50.0-100.0 [facility] Comment on above: Result Comment: Last dose: - PERFORMED BY: [place] [address] PATHOLOGIST CORPORATE DEVELOPMENT INTERN ARIC BUTLER M.D. Performed By: #### V ALP #### [place] [id number] [facility] Vitamin D 25 Hydroxy Totalon 05-17-2023 Vitamin D 25 Hydroxy Total 24.3 ng/mL Low 30-100 [facility] Comment on above: Order Comment: Name Collection Type:: Clean-Voided Midstream Result Comment: AWAIS MIN D STATUS 25(OH)VITAMIN D RANGE (ng/mL) Deficient <20 Insufficient 20 to <30 Sufficient 30 to 100 Reference: Karen MF,Nicole NC, Ed LI, et al. Evaluation,treatment, and prevention of vitamin D deficiency; an Endocrine Society clinical practice guideline. JCEM. 2010; 96(7):1911-30. PERFORMED BY: [place] [address] PATHOLOGIST CORPORATE DEVELOPMENT INTERN ARIC BUTLER M.D. Performed By: #### P ROCREROXANA ONTIVEROSONUAPLUS #### [place] [id number] [place] Vitamin D+Metabolites [Mass/ volume] in Serum or PlasmaOrdered By: Halle Mac on 05-17-2023 Vitamin D+Metabolites [Mass/Vol] 24.3 ng/mL 30-100 [facility] Comment on above: VITAMIN D STATUS 25( OH)VITAMIN D RANGE (ng/mL) Deficient <20 Insufficient 20 to <30Sufficient 30 to 100Reference: Karen MF,Nicole NC, Ed LI, et al. Evaluation,treatment, and prevention of vitamin D deficiency; an Endocrine Society clinical practice guideline. JCEM. 2010; 96(7):1911-30. Yeast detection in urine sed iment by light microscopyOrdered By: Halle Mac on 05-17-2023 Yeast LM Ql (Urine sed) None seen [HPF] None Seen [facility] Provider Orderson 05-09-2023 Provider Orders [id number] FF [facility] Office Visiton 03-14-2023 Follow-up visit [id number] Nithin Humphreys 1970 F Date Provider Department Center 03/14/2023 [id number] [facility] Alfredo [facility] No family history on file Level of Service:57977 [place] OFFICE/OUTPATIENT ESTABLISHED MOD MDM 30-39 MIN [facility] 37on 11-30-2022 37 -Stop hydrochlorothi azide and start Spironolactone 25 mg daily -Stop Lisinopril and start Entresto 2 day after stopping Lisinopril -Get labs 1 week after starting Entresto -Bring blood pressure machine to be checked out when you come for blood draw Normal [place] Office Visiton 11-30-2022 Follow-up visit [id number] Nithin Humphreys 1970 F Date Provider Department Center 11/30/2022 [id number]-ARXMRHYTNJONATHAN [facility] Alfredo [facility] No family history on file Level of Service:84993 [place] OFFICE/OUTPATIENT ESTABLISHED MOD MDM 30-39 MIN Reason for Visit and Comments: Follow-up [140872] - Go over echo results [facility] BNPon 09-07-2022 Natriuretic peptide B (Bld) [Mass/Vol] 391.0 pg/mL Normal <=900.0 [facility] Comment on above: Performed By: #### L IPID, BMP #### [facility] [address] [place] [address] Dr. Jag Waldrop CBC AUTO DIFFon 09-07-2022 BASO # 0.1 103/ul Normal 0.0-0.1 [facility] Comment on above: Performed By: #### L IPID, BMP #### [facility] [address] [place] [address] Dr. Jag Waldrop Basophils/100 WBC (Bld) 1.4 % Normal 0.2-2.0 [facility] Comment on above: Performed By: #### L IPID, BMP #### [facility] [address] [place] [address] Dr. Jag Waldrop EO # 0.1 103/ul Normal 0.0-0.7 [facility] Comment on above: Performed By: #### L IPID, BMP #### [facility] [address] [place] [address] Dr. Jag Waldrop Eosinophils/100 WBC (Bld) 1.6 % Normal 0.9-7.0 [facility] Comment on above: Performed By: #### L IPID, BMP #### [facility] [address] [place] [address] Dr. Jag Waldrop Erythrocyte distribution width (RBC) [Ratio] 15.0 % Normal 11.0-15.0 [facility] Comment on above: Performed By: #### L IPID, BMP #### [facility] [address] [place] [address] Dr. Jag Waldrop Hematocrit (Bld) [Volume fraction] 37.2 % Normal 36.0-48.0 [facility] Comment on above: Performed By: #### L IPID, BMP #### [facility] [address] [place] [address] Dr. Jag Waldrop Hemoglobin (Bld) [Mass/Vol] 11.6 g/dL Critically low 12.0-16.0 [facility] Comment on above: Performed By: #### L IPID, BMP #### [facility] [address] [address] [address] Jag Waldrop IG # 0.01 10e3/ul Normal 0.00-0.03 [facility] Comment on above: Performed By: #### L IPID, BMP #### [facility] [address] [address] [address] Jag Waldrop IG % 0.2 % Normal 0.0-0.5 [facility] Comment on above: Performed By: #### L IPID, BMP #### [facility] [address] [address] [address] Jag Waldrop LYMPH # 1.9 103/ul Normal 1.2-3.8 [facility] Comment on above: Performed By: #### L IPID, BMP #### [facility] [address] [place] [address] Dr. Jag Waldrop Lymphocytes/100 WBC (Bld) 39.1 % Normal 20.5-60.0 [facility] Comment on above: Performed By: #### L IPID, BMP #### [facility] [address] [address] [address] Jag Waldrop MANUAL DIFF REQ NO Normal [facility] [facility] Comment on above: Performed By: #### L IPID, BMP #### [facility] [address] [address] [address] Jag Waldrop MCH (RBC) [Entitic mass] 27.5 pg Normal 26.7-34.0 [facility] Comment on above: Performed By: #### L IPID, BMP #### [facility] [address] [address] [address] Jag Waldrop MCHC (RBC) [Mass/Vol] 31.2 g/dL Normal 29.9-35.2 [facility] Comment on above: Performed By: #### L IPID, BMP #### [facility] [address] [address] [address] Jag Waldrop MCV (RBC) [Entitic vol] 88.2 fL Normal 81.0-99.0 [facility] Comment on above: Performed By: #### L IPID, BMP #### [facility] [address] [place] [address] Dr. Jag Waldrop MONO # 0.3 103/ul Normal 0.3-0.8 [facility] Comment on above: Performed By: #### L IPID, BMP #### [facility] [address] [place] [address] Dr. Jag Waldrop Monocytes/100 WBC (Bld) 6.5 % Normal 1.7-12.0 [facility] Comment on above: Performed By: #### L IPID, BMP #### [facility] [address] [place] [address] Dr. Jag Waldrop NEUT # 2.5 103/ul Normal 1.4-6.5 [facility] Comment on above: Performed By: #### L IPID, BMP #### [facility] [address] [place] [address] Dr. Jag Waldrop Neutrophils/100 WBC (Bld) 51.2 % Normal 43.0-75.0 [facility] Comment on above: Performed By: #### L IPID, BMP #### [facility] [address] [place] [address] Dr. Jag Waldrop Platelet mean volume (Bld) [Entitic vol] 10.5 fL Normal 9.5-13.5 [facility] Comment on above: Performed By: #### L IPID, BMP #### [facility] [address] [place] [address] Dr. Jag Waldrop PLT 272 103/ul Normal 150-450 [facility] Comment on above: Performed By: #### L IPID, BMP #### [facility] [address] [place] [address] Dr. Jag Waldrop RBC 4.22 106/ul Normal 4.20-5.40 [facility] Comment on above: Performed By: #### L IPID, BMP #### [facility] [address] [place] [address] Dr. Jag Waldrop WBC 4.9 103/ul Normal 4.0-11.0 [facility] Comment on above: Performed By: #### L IPID, BMP #### [facility] [address] [place] [address] Dr. Jag BRADLEY URINE PROFILEon 3 Bilirubin Ql (U) Negative Normal NEGATIVE [facility] Comment on above: Performed By: #### E RUR #### [facility] [address] [place] [address] Dr. Jag Waldrop Clarity (U) CLEAR Normal CLEAR [facility] Comment on above: Performed By: #### E RUR #### [facility] [address] [place] [address] Dr. Jag Waldrop Color (U) LT. YELLOW Normal YELLOW [facility] Comment on above: Performed By: #### E RUR #### [facility] [address] [place] [address] Dr. Jag Waldrop ERUAHD A micrscopic examina tion will be performed if indicated. Normal [facility] Comment on above: Performed By: #### E RUR #### [facility] [address] [place] [address] Dr. Jag Waldrop Glucose Ql (U) Negative Normal NEGATIVE [facility] Comment on above: Performed By: #### E RUR #### [facility] [address] [place] [address] Dr. Jag Waldrop Hemoglobin Ql (U) Negative Normal NEGATIVE [facility] Comment on above: Performed By: #### E RUR #### [facility] [address] [place] [address] Dr. Jag Waldrop Ketones Ql (U) Negative Normal NEGATIVE [facility] Comment on above: Performed By: #### E RUR #### [facility] [address] [place] [address] Dr. Jag Waldrop LEUKOCYTES Negative Normal NEGATIVE [facility] Comment on above: Performed By: #### E RUR #### [facility] [address] [place] [address] Dr. Jag Waldrop Nitrite Ql (U) Negative Normal NEGATIVE [facility] Comment on above: Performed By: #### E RUR #### [facility] [address] [place] [address] Dr. Jag Waldrop pH (U) 7.0 [pH] Normal 5-9 [facility] Comment on above: Performed By: #### E RUR #### [facility] [address] [place] [address] Dr. Jag Waldrop SPEC GRAVITY 1.010 Normal 1.005-<=1.0 25 [facility] Comment on above: Performed By: #### E RUR #### [facility] [address] [place] [address] Dr. Jag Waldrop UA PROTEIN Negative Normal NEGATIVE/ TRACE [facility] Comment on above: Performed By: #### E RUR #### [facility] [address] [place] [address] Dr. Jag Waldrop UR MICRO IND NOT INDICATED Normal [facility] Comment on above: Performed By: #### E RUR #### [facility] [address] [place] [address] Dr. Jag Waldrop Urobilinogen Qn (U) 0.2 {Chris'U}/dL Normal 0.2 - 1. 0 [facility] Comment on above: Performed By: #### E RUR #### [facility] [address] [place] [address] Dr. Jag Waldrop PROF 14(COMP METB)on 023 Albumin [Mass/Vol] 3.9 g/dL Normal 3.4-5.0 [facility] Comment on above: Performed By: #### L IPID, BMP #### [facility] [address] [place] [address] Dr. Jag Waldrop Albumin/Globulin [Mass ratio] 1.2 {ratio} Normal [facility] Comment on above: Performed By: #### L IPID, BMP #### [facility] [address] [place] [address] Dr. Jag Waldrop ALP [Catalytic activity/Vol] 95 U/L Normal 46-116 [facility] Comment on above: Performed By: #### L IPID, BMP #### [facility] [address] [address] [address] Jag Waldrop ALT [Catalytic activity/Vol] 31 U/L Normal 14-59 [facility] Comment on above: Performed By: #### L IPID, BMP #### [facility] [address] [address] [address] Jag Waldrop Anion gap [Moles/Vol] 12.7 mmol/L Normal [facility] Comment on above: Performed By: #### L IPID, BMP #### [facility] [address] [address] [address] Jag Waldrop AST [Catalytic activity/Vol] 34 U/L Normal 15-37 [facility] Comment on above: Performed By: #### L IPID, BMP #### [facility] [address] [place] [address] Dr. Jag Waldrop Bilirubin [Mass/Vol] 0.4 mg/dL Normal 0.2-1.0 [facility] Comment on above: Performed By: #### L IPID, BMP #### [facility] [address] [place] [address] Dr. Jag Waldrop Calcium [Mass/Vol] 9.1 mg/dL Normal 8.5-10.1 [facility] Comment on above: Performed By: #### L IPID, BMP #### [facility] [address] [place] [address] Dr. Jag Waldrop Chloride [Moles/Vol] 107 mmol/L Normal 98-107 [facility] Comment on above: Performed By: #### L IPID, BMP #### [facility] [address] [place] [address] Dr. Jag Waldrop CO2 [Moles/Vol] 28.1 mmol/L Normal 21.0-32.0 [facility] Comment on above: Performed By: #### L IPID, BMP #### [facility] [address] [place] [address] Dr. Jag Waldrop Creatinine [Mass/Vol] 1.18 mg/dL Critically high 0.55-1.02 [facility] Comment on above: Performed By: #### L IPID, BMP #### [facility] [address] [address] [address] Jag Waldrop EGFR-AF MONEGASQUE 59 mL/min/1.73m2 Critically low >=60 [facility] Comment on above: Performed By: #### L IPID, BMP #### [facility] [address] [address] [address] Jag Waldrop EGFR-NON AF MONEGASQUE 48 mL/min/1.73m2 Critically low >=60 [facility] Comment on above: Performed By: #### L IPID, BMP #### [facility] [address] [address] [address] Jag Waldrop Globulin (S) [Mass/Vol] 3.3 g/dL Normal [facility] Comment on above: Performed By: #### L IPID, BMP #### [facility] [address] [address] [address] Jag Waldrop Glucose [Mass/Vol] 111 mg/dL Critically high 74-106 [facility] Comment on above: Performed By: #### L IPID, BMP #### [facility] [address] [address] [address] Jag Waldrop Potassium [Moles/Vol] 3.8 mmol/L Normal 3.5-5.1 [facility] Comment on above: Performed By: #### L IPID, BMP #### [facility] [address] [address] [address] Jag Waldrop Protein [Mass/Vol] 7.2 g/dL Normal 6.4-8.2 [facility] Comment on above: Performed By: #### L IPID, BMP #### [facility] [address] [address] [address] Jag Waldrop Sodium [Moles/Vol] 144 mmol/L Normal 136-145 [facility] Comment on above: Performed By: #### L IPID, BMP #### [facility] [address] [address] [address] Jag Waldrop Urea nitrogen [Mass/Vol] 19.0 mg/dL Critically high 7.0-18.0 [facility] Comment on above: Performed By: #### L IPID, BMP #### [facility] [address] [place] [address] Dr. Jag Waldrop Urea nitrogen/Creatinine [Mass ratio] 16.1 mg/mg Normal [facility] Comment on above: Performed By: #### L IPID, BMP #### [facility] [address] [place] [address] Dr. Jag Waldrop PROTIMEon 09-07-2022 INR Coag (PPP) [Relative time] {INR} Normal [facility] Comment on above: Performed By: #### P T #### [facility] [address] [place] [address] Dr. Jag Waldrop INR GUIDELINES SEE BELOW Normal [facility] Comment on above: Result Comment: MARTIN RED INR: 2.0 - 3.0 CONDITIONS NOT LISTED BELOW 2.5 - 3.5 FOR PROSTHETIC HEART VALVE REPLACEMENT 2.5 - 3.5 RECURRENT THROMBOSIS Performed By: #### P T #### [facility] [address] [place] [address] Dr. Jag Waldrop PT Coag (PPP) [Time] 9.7 s Normal 9.0-11.6 [facility] Comment on above: Performed By: #### P T #### [facility] [address] [place] [address] Dr. Jag Waldrop TROPONIN, HIGH SENSITIVITYon 09-07-2022 HSTROP 17.8 pg/mL Normal 4.0-51.3 [facility] Comment on above: Result Comment: CUT- OFF POINTS HAVE BEEN ESTABLISHED BASED ON THE FOURTH UNIVERSAL DEFINITIONS OF MYOCARDIAL INFARCTION. THE UPPER REFERENCE LIMIT (URL) OF TROPONIN, DEFINED THE 99TH PERCENTILE OF cTnI DISTRIBUTION IN A REFERENCE POPULATION, HAS BEEN CONFIRMED THE DECISION THRESHOLD FOR AL DIAGNOSIS. Performed By: #### L IPID, BMP #### [facility] [address] [place] [address] Dr. Jag Waldrop XR CHEST 2 Von [...] by: WAN JENKINS Date: 2022-09-07 16:47 Normal [facility] GLYCOHEMOGLOBIN A1Con 2022 ADA RECOMMENDATION SEE BELOW Normal [facility] Comment on above: Result Comment: ADA RECOMMENDED LIMIT 4.0 - 6.0 ADA THERAPEUTIC TARGET < 7.0 ACTION SUGGESTED > 7.0 Performed By: #### L IPID, BMP #### [facility] [address] [place] [address] Dr. Jag Waldrop Glucose [Mass/Vol] 120 mg/dL Normal [facility] Comment on above: Performed By: #### L IPID, BMP #### [facility] [address] [place] [address] Dr. Jag Waldrop HbA1c (Bld) [Mass fraction] 5.8 % Normal 4.5-6.2 [facility] Comment on above: Performed By: #### L IPID, BMP #### [facility] [address] [address] [address] Jag Waldrop PROF CHEM 8 (BAS METB)on Anion gap [Moles/Vol] 13.2 mmol/L Normal [facility] Comment on above: Performed By: #### B MP #### [facility] [address] [place] [address] Dr. Jag Waldrop Calcium [Mass/Vol] 9.0 mg/dL Normal 8.5-10.1 [facility] Comment on above: Performed By: #### B MP #### [facility] [address] [place] [address] Dr. Jag Waldrop Chloride [Moles/Vol] 107 mmol/L Normal 98-107 [facility] Comment on above: Performed By: #### B MP #### [facility] [address] [place] [address] Dr. Jag Waldrop CO2 [Moles/Vol] 26.3 mmol/L Normal 21.0-32.0 [facility] Comment on above: Performed By: #### B MP #### [facility] [address] [address] [address] Jag Waldrop Creatinine [Mass/Vol] 1.03 mg/dL Critically high 0.55-1.02 [facility] Comment on above: Performed By: #### B MP #### [facility] [address] [address] [address] Jag Waldrop EGFR-AF MONEGASQUE >60 Normal >=60 [facility] Comment on above: Performed By: #### B MP #### [facility] [address] [address] [address] Jag Waldrop EGFR-NON AF MONEGASQUE 56 mL/min/1.73m2 Critically low >=60 [facility] Comment on above: Performed By: #### B MP #### [facility] [address] [address] [address] Jag Waldrop Glucose [Mass/Vol] 149 mg/dL Critically high 74-[address] [facility] Comment on above: Performed By: #### B MP #### [facility] [address] [address] [address] Jag Waldrop Potassium [Moles/Vol] 4.5 mmol/L Normal 3.5-5.1 [facility] Comment on above: Performed By: #### B MP #### [facility] [address] [address] [address] Jag Waldrop Sodium [Moles/Vol] 142 mmol/L Normal 136-145 [facility] Comment on above: Performed By: #### B MP #### [facility] [address] [address] [address] Jag Waldrop Urea nitrogen [Mass/Vol] 22.0 mg/dL Critically high 7.0-18.0 [facility] Comment on above: Performed By: #### B MP #### [facility] [address] [address] [address] Jag Waldrop Urea nitrogen/Creatinine [Mass ratio] 21.4 mg/mg Normal [facility] Comment on above: Performed By: #### B MP #### [facility] [address] [address] [address] ABD/PELVIS WO CONon 05-30 CT ABD/PELVIS WO CON EXAMINATION: CT ABD /PELVIS WO CON, 05/29/2022 8:38 PM EST HISTORY: [...] by: NATHAN COLE Date: 2022-05-29 22:50 Normal [facility] US KVNG DOP LEG RTon 05-30-19 [...] LUZ COELLO Date: 2022-05-29 22:42 Normal [facility] CBC AUTO DIFFon 05-29-2022 BASO # 0.1 103/ul Normal 0.0-0.1 [facility] Comment on above: Performed By: #### L IPID, BMP #### [facility] [address] [place] [address] Dr. Jag Waldrop Basophils/100 WBC (Bld) 0.7 % Normal 0.2-2.0 [facility] Comment on above: Performed By: #### L IPID, BMP #### [facility] [address] [place] [address] Dr. Jag Waldrop EO # 0.1 103/ul Normal 0.0-0.7 [facility] Comment on above: Performed By: #### L IPID, BMP #### [facility] [address] [place] [address] Dr. Jag Waldrop Eosinophils/100 WBC (Bld) 1.5 % Normal 0.9-7.0 [facility] Comment on above: Performed By: #### L IPID, BMP #### [facility] [address] [address] [address] Jag Waldrop Erythrocyte distribution width (RBC) [Ratio] 13.9 % Normal 11.0-15.0 [facility] Comment on above: Performed By: #### L IPID, BMP #### [facility] [address] [place] [address] Dr. Jag Waldrop Hematocrit (Bld) [Volume fraction] 34.2 % Critically low 36.0-48.0 [facility] Comment on above: Performed By: #### L IPID, BMP #### [facility] [address] [place] [address] Dr. Jag Waldrop Hemoglobin (Bld) [Mass/Vol] 10.9 g/dL Critically low 12.0-16.0 [facility] Comment on above: Performed By: #### L IPID, BMP #### [facility] [address] [place] [address] Dr. Jag Waldrop IG # 0.02 10e3/ul Normal 0.00-0.03 [facility] Comment on above: Performed By: #### L IPID, BMP #### [facility] [address] [place] [address] Dr. Jag Waldrop IG % 0.2 % Normal 0.0-0.5 [facility] Comment on above: Performed By: #### L IPID, BMP #### [facility] [address] [place] [address] Dr. Jag Waldrop LYMPH # 2.5 103/ul Normal 1.2-3.8 [facility] Comment on above: Performed By: #### L IPID, BMP #### [facility] [address] [place] [address] Dr. Jag Waldrop Lymphocytes/100 WBC (Bld) 30.4 % Normal 20.5-60.0 [facility] Comment on above: Performed By: #### L IPID, BMP #### [facility] [address] [place] [address] Dr. Jag Waldrop MANUAL DIFF REQ NO Normal [facility] Comment on above: Performed By: #### L IPID, BMP #### [facility] [address] [place] [address] Dr. Jag Waldrop MCH (RBC) [Entitic mass] 27.1 pg Normal 26.7-34.0 [facility] Comment on above: Performed By: #### L IPID, BMP #### [facility] [address] [place] [address] Dr. Jag Waldrop MCHC (RBC) [Mass/Vol] 31.9 g/dL Normal 29.9-35.2 [facility] Comment on above: Performed By: #### L IPID, BMP #### [facility] [address] [place] [address] Dr. Jag Waldrop MCV (RBC) [Entitic vol] 85.1 fL Normal 81.0-99.0 [facility] Comment on above: Performed By: #### L IPID, BMP #### [facility] [address] [place] [address] Dr. Jag Waldrop MONO # 0.5 103/ul Normal 0.3-0.8 [facility] Comment on above: Performed By: #### L IPID, BMP #### [facility] [address] [place] [address] Dr. Jag Waldrop Monocytes/100 WBC (Bld) 6.7 % Normal 1.7-12.0 [facility] Comment on above: Performed By: #### L IPID, BMP #### [facility] [address] [place] [address] Dr. Jag Waldrop NEUT # 4.9 103/ul Normal 1.4-6.5 [facility] Comment on above: Performed By: #### L IPID, BMP #### [facility] [address] [place] [address] Dr. Jag Waldrop Neutrophils/100 WBC (Bld) 60.5 % Normal 43.0-75.0 [facility] Comment on above: Performed By: #### L IPID, BMP #### [facility] [address] [place] [address] Dr. Jag Waldrop Platelet mean volume (Bld) [Entitic vol] 10.3 fL Normal 9.5-13.5 [facility] Comment on above: Performed By: #### L IPID, BMP #### [facility] [address] [place] [address] Dr. Jag Waldrop PLT 256 103/ul Normal 150-450 [facility] Comment on above: Performed By: #### L IPID, BMP #### [facility] [address] [place] [address] Dr. Jag Walrdop RBC 4.02 106/ul Critically low 4.20-5.40 [facility] Comment on above: Performed By: #### L IPID, BMP #### [facility] [address] [place] [address] Dr. Jag Waldrop WBC 8.1 103/ul Normal 4.0-11.0 [facility] Comment on above: Performed By: #### L IPID, BMP #### [facility] [address] [place] [address] Dr. Jag BRADLEY URINE PROFILEon 3 Bilirubin Ql (U) Negative Normal NEGATIVE [facility] Comment on above: Performed By: #### L IPID, BMP #### [facility] [address] [place] [address] Dr. Jag Waldrop Clarity (U) CLEAR Normal CLEAR [facility] Comment on above: Performed By: #### L IPID, BMP #### [facility] [address] [place] [address] Dr. Jag Waldrop Color (U) YELLOW Normal YELLOW [facility] Comment on above: Performed By: #### L IPID, BMP #### [facility] [address] [place] [address] Dr. Jag SAL A micrscopic examina tion will be performed if indicated. Normal [facility] Comment on above: Performed By: #### L IPID, BMP #### [facility] [address] [place] [address] Dr. Jag Waldrop Glucose Ql (U) Negative Normal NEGATIVE [facility] Comment on above: Performed By: #### L IPID, BMP #### [facility] [address] [place] [address] Dr. Jag Waldrop Hemoglobin Ql (U) Negative Normal NEGATIVE [facility] Comment on above: Performed By: #### L IPID, BMP #### [facility] [address] [place] [address] Dr. Jag Waldrop Ketones Ql (U) 15 mg/dl Abnormal NEGATIVE [facility] Comment on above: Performed By: #### L IPID, BMP #### [facility] [address] [place] [address] Dr. Jag Waldrop LEUKOCYTES TRACE Abnormal NEGATIVE [facility] Comment on above: Performed By: #### L IPID, BMP #### [facility] [address] [place] [address] Dr. Jag Waldrop Nitrite Ql (U) Negative Normal NEGATIVE [facility] Comment on above: Performed By: #### L IPID, BMP #### [facility] [address] [place], [place] [address] Dr. Jag Waldrop pH (U) 5.5 [pH] Normal 5-9 [facility] Comment on above: Performed By: #### L IPID, BMP #### [facility] [address] [place] [address] Dr. Jag Waldrop SPEC GRAVITY 1.020 Normal 1.005-<=1.0 25 [facility] Comment on above: Performed By: #### L IPID, BMP #### [facility] [address] [place] [address] Dr. Jag Waldrop UA PROTEIN Negative Normal NEGATIVE/ TRACE [facility] Comment on above: Performed By: #### L IPID, BMP #### [facility] [address] [place] [address] Dr. Jag Waldrop UR MICRO IND INDICATED Normal [facility] Comment on above: Performed By: #### L IPID, BMP #### [facility] [address] [place] [address] Dr. Jag Waldrop Urobilinogen Qn (U) 0.2 {Chris'U}/dL Normal 0.2 - 1. 0 [facility] Comment on above: Performed By: #### L IPID, BMP #### [facility] [address] [place] [address] Dr. Jag Waldrop PROF CHEM 8 (BAS METB)on Anion gap [Moles/Vol] 14.2 mmol/L Normal [facility] Comment on above: Performed By: #### B MP #### [facility] [address] [place] [address] Dr. Jag Waldrop Calcium [Mass/Vol] 9.1 mg/dL Normal 8.5-10.1 [facility] Comment on above: Performed By: #### B MP #### [facility] [address] [address] [address] Jag Waldrop Chloride [Moles/Vol] 106 mmol/L Normal 98-107 [facility] Comment on above: Performed By: #### B MP #### [facility] [address] [address] [address] Jag Waldrop CO2 [Moles/Vol] 23.5 mmol/L Normal 21.0-32.0 [facility] Comment on above: Performed By: #### B MP #### [facility] [address] [address] [address] Jag Waldrop Creatinine [Mass/Vol] 1.29 mg/dL Critically high 0.55-1.02 [facility] Comment on above: Performed By: #### B MP #### [facility] [address] [address] [address] Jag Waldrop EGFR-AF MONEGASQUE 53 mL/min/1.73m2 Critically low >=60 [facility] Comment on above: Performed By: #### B MP #### [facility] [address] [place] [address] Dr. Jag Waldrop EGFR-NON AF MONEGASQUE 44 mL/min/1.73m2 Critically low >=60 [facility] Comment on above: Performed By: #### B MP #### [facility] [address] [address] [address] Jag Waldrop Glucose [Mass/Vol] 93 mg/dL Normal 74-106 [facility] Comment on above: Performed By: #### B MP #### [facility] [address] [address] [address] Jag Waldrop Potassium [Moles/Vol] 3.7 mmol/L Normal 3.5-5.1 [facility] Comment on above: Performed By: #### B MP #### [facility] [address] [address] [address] Jag Waldrop Sodium [Moles/Vol] 140 mmol/L Normal 136-145 [facility] Comment on above: Performed By: #### B MP #### [facility] [address] [address] [address] Jag Waldrop Urea nitrogen [Mass/Vol] 24.0 mg/dL Critically high 7.0-18.0 [facility] Comment on above: Performed By: #### B MP #### [facility] [address] [place] [address] Dr. Jag Waldrop Urea nitrogen/Creatinine [Mass ratio] 18.6 mg/mg Normal [facility] Comment on above: Performed By: #### B MP #### [facility] [address] [place] [address] Dr. Jag Waldrop URINE MICROSCOPIC ONLYon BACTERIA TRACE Abnormal NONE SEEN [facility] Comment on above: Performed By: #### L IPID, BMP #### [facility] [address] [place] [address] Dr. Jag Waldrop Bacteria identified Cx Nom (U) NOT INDICATED Normal [facility] Comment on above: Performed By: #### L IPID, BMP #### [facility] [address] [place] [address] Dr. Jag Waldrop CAST NONE SEEN Normal NONE SEEN [facility] Comment on above: Performed By: #### L IPID, BMP #### [facility] [address] [place] [address] Dr. Jag Waldrop Crystals LM Nom (Urine sed) NONE SEEN Normal NONE SEEN [facility] Comment on above: Performed By: #### L IPID, BMP #### [facility] [address] [place] [address] Dr. Jag Waldrop Epithelial cells LM Ql (Urine sed) RARE Normal NONE SEEN /RARE [facility] Comment on above: Performed By: #### L IPID, BMP #### [facility] [address] [place] [address] Dr. Jag Waldrop MUCOUS NONE SEEN Normal NONE SEEN [facility] Comment on above: Performed By: #### L IPID, BMP #### [facility] [address] [place] [address] Dr. Jag Waldrop RBC 5-10 Abnormal 0-2 [facility] Comment on above: Performed By: #### L IPID, BMP #### [facility] [address] [place], [place] [address] Dr. Jag Waldrop WBC 0-2 Abnormal NONE SEEN [facility] Comment on above: Performed By: #### L IPID, BMP #### [facility] [address] [place], [place] [address] Dr. Jag Waldrop MG MAMM SCREEN 3D ORESTES CADon 03-29-2022 MG MAMM SCREEN 3D ORESTES CAD Patient: SHERLY HUMPHREYS Exam Date: 03/29/2022 : 1970 Gender:F Ordering : AGUSTINA JANENE [employer] Admission #: [id number] Family : Order #: [id number] CLICK HERE TO VIEW EXAM RADIOLOGY REPORT [...] head/neck cancer at age 73. LOCATION: [facility] BREAST COMPOSITION: Scattered areas fibroglandular density. [...] Lobato M.D. on 03/29/2022 at 15:31 Normal [facility] MRI LSPINE WO W CONon 2021 [...] by: KATHY LOBATO Date: 2022-03-23 11:26 Normal [facility] MRI TSPINE WO W CONon 2021 [...] by: KATHY LOBATO Date: 2022-03-23 12:50 Normal [facility] PROF CHEM 8 (BAS METB)on Anion gap [Moles/Vol] 11.8 mmol/L Normal [facility] Comment on above: Performed By: #### P OCGLUC #### [facility] [address] [address] [address] Jag Waldrop Calcium [Mass/Vol] 9.0 mg/dL Normal 8.5-10.1 [facility] Comment on above: Performed By: #### P OCGLUC #### [facility] [address] [address] [address] Jag Waldrop Chloride [Moles/Vol] 107 mmol/L Normal 98-107 [facility] Comment on above: Performed By: #### P OCGLUC #### [facility] [address] [address] [address] Jag Waldrop CO2 [Moles/Vol] 30.2 mmol/L Normal 21.0-32.0 [facility] Comment on above: Performed By: #### P OCGLUC #### [facility] [address] [address] [address] Jag Waldrop Creatinine [Mass/Vol] 1.32 mg/dL Critically high 0.55-1.02 [facility] Comment on above: Performed By: #### P OCGLUC #### [facility] [address] [address] [address] Jag Waldrop EGFR-AF MONEGASQUE 51 mL/min/1.73m2 Critically low >=60 [facility] Comment on above: Performed By: #### P OCGLUC #### [facility] [address] [address] [address] Jag Waldrop EGFR-NON AF MONEGASQUE 42 mL/min/1.73m2 Critically low >=60 [facility] Comment on above: Performed By: #### P OCGLUC #### [facility] [address] [address] [address] Jag Waldrop Glucose [Mass/Vol] 117 mg/dL Critically high 74-106 [facility] Comment on above: Performed By: #### P OCGLUC #### [facility] [address] [address] [address] Jag Waldrop Potassium [Moles/Vol] 4.0 mmol/L Normal 3.5-5.1 [facility] Comment on above: Performed By: #### P OCGLUC #### [facility] [address] [address] [address] Jag Waldrop Sodium [Moles/Vol] 145 mmol/L Normal 136-145 [facility] Comment on above: Performed By: #### P OCGLUC #### [facility] [address] [address] [address] Jag Waldrop Urea nitrogen [Mass/Vol] 23.0 mg/dL Critically high 7.0-18.0 [facility] Comment on above: Performed By: #### P OCGLUC #### [facility] [address] [place] [address] Dr. Jag Waldrop Urea nitrogen/Creatinine [Mass ratio] 17.4 mg/mg Normal [facility] Comment on above: Performed By: #### P OCGLUC #### [facility] [address] [place] [address] Dr. Jag Waldrop CBC AUTO DIFFon 02-19-2022 BASO # 0.1 103/ul Normal 0.0-0.1 [facility] Comment on above: Performed By: #### P OCGLUC #### [facility] [address] [place] [address] Dr. Jag Waldrop Basophils/100 WBC (Bld) 1.0 % Normal 0.2-2.0 [facility] Comment on above: Performed By: #### P OCGLUC #### [facility] [address] [place] [address] Dr. Jag Waldrop EO # 0.1 103/ul Normal 0.0-0.7 [facility] Comment on above: Performed By: #### P OCGLUC #### [facility] [address] [address] [address] Jag Waldrop Eosinophils/100 WBC (Bld) 1.9 % Normal 0.9-7.0 [facility] Comment on above: Performed By: #### P OCGLUC #### [facility] [address] [place] [address] Dr. Jag Waldrop Erythrocyte distribution width (RBC) [Ratio] 13.2 % Normal 11.0-15.0 [facility] Comment on above: Performed By: #### P OCGLUC #### [facility] [address] [place] [address] Dr. Jag Waldrop Hematocrit (Bld) [Volume fraction] 36.7 % Normal 36.0-48.0 [facility] Comment on above: Performed By: #### P OCGLUC #### [facility] [address] [place] [address] Dr. Jag Waldrop Hemoglobin (Bld) [Mass/Vol] 11.4 g/dL Critically low 12.0-16.0 [facility] Comment on above: Performed By: #### P OCGLUC #### [facility] [address] [place] [address] Dr. Jag Waldrop IG # 0.03 10e3/ul Normal 0.00-0.03 [facility] Comment on above: Performed By: #### P OCGLUC #### [facility] [address] [place] [address] Dr. Jag Waldrop IG % 0.5 % Normal 0.0-0.5 [facility] Comment on above: Performed By: #### P OCGLUC #### [facility] [address] [place] [address] Dr. Jag Waldrop LYMPH # 2.1 103/ul Normal 1.2-3.8 [facility] Comment on above: Performed By: #### P OCGLUC #### [facility] [address] [place] [address] Dr. Jag Waldrop Lymphocytes/100 WBC (Bld) 34.1 % Normal 20.5-60.0 [facility] Comment on above: Performed By: #### P OCGLUC #### [facility] [address] [place] [address] Dr. Jag Waldrop MANUAL DIFF REQ NO Normal [facility] Comment on above: Performed By: #### P OCGLUC #### [facility] [address] [address] [address] Jag Waldrop MCH (RBC) [Entitic mass] 28.4 pg Normal 26.7-34.0 [facility] Comment on above: Performed By: #### P OCGLUC #### [facility] [address] [place] [address] Dr. Jag Waldrop MCHC (RBC) [Mass/Vol] 31.1 g/dL Normal 29.9-35.2 [facility] Comment on above: Performed By: #### P OCGLUC #### [facility] [address] [place] [address] Dr. Jag Waldrop MCV (RBC) [Entitic vol] 91.5 fL Normal 81.0-99.0 [facility] Comment on above: Performed By: #### P OCGLUC #### [facility] [address] [place] [address] Dr. Jag Waldrop MONO # 0.5 103/ul Normal 0.3-0.8 [facility] Comment on above: Performed By: #### P OCGLUC #### [facility] [address] [place] [address] Dr. Jag Waldrop Monocytes/100 WBC (Bld) 8.4 % Normal 1.7-12.0 [facility] Comment on above: Performed By: #### P OCGLUC #### [facility] [address] [place] [address] Dr. Jag Waldrop NEUT # 3.3 103/ul Normal 1.4-6.5 [facility] Comment on above: Performed By: #### P OCGLUC #### [facility] [address] [place] [address] Dr. Jag Waldrop Neutrophils/100 WBC (Bld) 54.1 % Normal 43.0-75.0 [facility] Comment on above: Performed By: #### P OCGLUC #### [facility] [address] [place] [address] Dr. Jag Waldrop Platelet mean volume (Bld) [Entitic vol] 10.6 fL Normal 9.5-13.5 [facility] Comment on above: Performed By: #### P OCGLUC #### [facility] [address] [address] [address] Jag Walrdop PLT 294 103/ul Normal 150-450 [facility] Comment on above: Performed By: #### P OCGLUC #### [facility] [address] [address] [address] Jag Waldrop RBC 4.01 106/ul Critically low 4.20-5.40 [facility] Comment on above: Performed By: #### P OCGLUC #### [facility] [address] [address] [address] Jag Waldrop WBC 6.2 103/ul Normal 4.0-11.0 [facility] Comment on above: Performed By: #### P OCGLUC #### [facility] [address] [place] [address] Dr. Jag Waldrop CRPon 02-19-2022 CRP [Mass/Vol] mg/L Normal <=1.0 [facility] Comment on above: Performed By: #### E RUR #### [facility] [address] [place] [address] TSPINE WO CONon [...] ALEX AVINA Date: 2022-02-19 19:25 Normal [facility] ER URINE PROFILEon 2 Bilirubin Ql (U) Negative Normal NEGATIVE [facility] Comment on above: Performed By: #### P OCGLUC #### [facility] [address] [place] [address] Dr. Jag Waldrop Clarity (U) CLEAR Normal CLEAR [facility] Comment on above: Performed By: #### P OCGLUC #### [facility] [address] [address] [address] Jag Waldrop Color (U) LT. YELLOW Normal YELLOW [facility] Comment on above: Performed By: #### P OCGLUC #### [facility] [address] [place] [address] Dr. Jag Waldrop ERUAHD A micrscopic examina tion will be performed if indicated. Normal [facility] Comment on above: Performed By: #### P OCGLUC #### [facility] [address] [address] [address] Jag Waldrop Glucose Ql (U) Negative Normal NEGATIVE [facility] Comment on above: Performed By: #### P OCGLUC #### [facility] [address] [address] [address] Jag Waldrop Hemoglobin Ql (U) Negative Normal NEGATIVE [facility] Comment on above: Performed By: #### P OCGLUC #### [facility] [address] [address] [address] Jag Waldrop Ketones Ql (U) Negative Normal NEGATIVE [facility] Comment on above: Performed By: #### P OCGLUC #### [facility] [address] [address] [address] Jag Waldrop LEUKOCYTES Negative Normal NEGATIVE [facility] Comment on above: Performed By: #### P OCGLUC #### [facility] [address] [address] [address] Jag Waldrop Nitrite Ql (U) Negative Normal NEGATIVE [facility] Comment on above: Performed By: #### P OCGLUC #### [facility] [address] [place] [address] Dr. Jag Waldrop pH (U) 5.5 [pH] Normal 5-9 [facility] Comment on above: Performed By: #### P OCGLUC #### [facility] [address] [place] [address] Dr. Jag Waldrop SPEC GRAVITY 1.020 Normal 1.005-<=1.0 25 [facility] Comment on above: Performed By: #### P OCGLUC #### [facility] [address] [place] [address] Dr. Jag Waldrop UA PROTEIN Negative Normal NEGATIVE/ TRACE [facility] Comment on above: Performed By: #### P OCGLUC #### [facility] [address] [place] [address] Dr. Jag Waldrop UR MICRO IND NOT INDICATED Normal [facility] Comment on above: Performed By: #### P OCGLUC #### [facility] [address] [place] [address] Dr. Jag Waldrop Urobilinogen Qn (U) 0.2 {Chris'U}/dL Normal 0.2 - 1. 0 [facility] Comment on above: Performed By: #### P OCGLUC #### [facility] [address] [place] [address] Dr. Jag Waldrop PROF CHEM 8 (BAS METB)on Anion gap [Moles/Vol] 10.8 mmol/L Normal [facility] Comment on above: Performed By: #### E RUR #### [facility] [address] [place] [address] Dr. Jag Waldrop Calcium [Mass/Vol] 9.0 mg/dL Normal 8.5-10.1 [facility] Comment on above: Performed By: #### E RUR #### [facility] [address] [place] [address] Dr. Jag Waldrop Chloride [Moles/Vol] 106 mmol/L Normal 98-107 [facility] Comment on above: Performed By: #### E RUR #### [facility] [address] [address] [address] Jag Waldrop CO2 [Moles/Vol] 28.1 mmol/L Normal 21.0-32.0 [facility] Comment on above: Performed By: #### E RUR #### [facility] [address] [address] [address] Jag Waldrop Creatinine [Mass/Vol] 1.06 mg/dL Critically high 0.55-1.02 [facility] Comment on above: Performed By: #### E RUR #### [facility] [address] [address] [address] Jag Waldrop EGFR-AF MONEGASQUE >60 Normal >=60 [facility] Comment on above: Performed By: #### E RUR #### [facility] [address] [place] [address] Dr. Jag Waldrop EGFR-NON AF MONEGASQUE 55 mL/min/1.73m2 Critically low >=60 [facility] Comment on above: Performed By: #### E RUR #### [facility] [address] [address] [address] Jag Waldrop Glucose [Mass/Vol] 89 mg/dL Normal 74-106 [facility] Comment on above: Performed By: #### E RUR #### [facility] [address] [place] [address] Dr. Jag Waldrop Potassium [Moles/Vol] 3.9 mmol/L Normal 3.5-5.1 [facility] Comment on above: Performed By: #### E RUR #### [facility] [address] [address] [address] Jag Waldrop Sodium [Moles/Vol] 141 mmol/L Normal 136-145 [facility] Comment on above: Performed By: #### E RUR #### [facility] [address] [address] [address] Jag Waldrop Urea nitrogen [Mass/Vol] 19.0 mg/dL Critically high 7.0-18.0 [facility] Comment on above: Performed By: #### E RUR #### [facility] [address] [address] [address] Jag Waldrop Urea nitrogen/Creatinine [Mass ratio] 17.9 mg/mg Normal [facility] Comment on above: Performed By: #### E RUR #### [facility] [address] [address] [address] Jag [facility] mm/hr Normal <=30 [facility] Comment on above: Performed By: #### L IPID, BMP #### [facility] [address] [address] [address] Jag Waldrop PROF CHEM 8 (BAS METB)on Anion gap [Moles/Vol] 17.3 mmol/L Normal [facility] Comment on above: Performed By: #### L IPID, BMP #### [facility] [address] [place] [address] Dr. Jag Waldrop Calcium [Mass/Vol] 9.2 mg/dL Normal 8.5-10.1 [facility] Comment on above: Performed By: #### L IPID, BMP #### [facility] [address] [address] [address] Jag Waldrop Chloride [Moles/Vol] 108 mmol/L Critically high 98-107 [facility] Comment on above: Performed By: #### L IPID, BMP #### [facility] [address] [address] [address] Jag Waldrop CO2 [Moles/Vol] 20.0 mmol/L Critically low 21.0-32.0 [facility] Comment on above: Performed By: #### L IPID, BMP #### [facility] [address] [address] [address] Jag Waldrop Creatinine [Mass/Vol] 1.40 mg/dL Critically high 0.55-1.02 [facility] Comment on above: Performed By: #### L IPID, BMP #### [facility] [address] [address] [address] Jag Waldrop EGFR-AF MONEGASQUE 48 mL/min/1.73m2 Critically low >=60 [facility] Comment on above: Performed By: #### L IPID, BMP #### [facility] [address] [place] [address] Dr. Jag Waldrop EGFR-NON AF MONEGASQUE 40 mL/min/1.73m2 Critically low >=60 [facility] Comment on above: Performed By: #### L IPID, BMP #### [facility] [address] [place] [address] Dr. Jag Waldrop Glucose [Mass/Vol] 126 mg/dL Critically high 74-[address] [facility] Comment on above: Performed By: #### L IPID, BMP #### [facility] [address] [place] [address] Dr. Jag Waldrop Potassium [Moles/Vol] 5.3 mmol/L Critically high 3.5-5.1 [facility] Comment on above: Performed By: #### L IPID, BMP #### [facility] [address] [place] [address] Dr. Jag Waldrop Sodium [Moles/Vol] 140 mmol/L Normal 136-145 [facility] Comment on above: Performed By: #### L IPID, BMP #### [facility] [facility] [address] [place] [address] Dr. Jag Waldrop Urea nitrogen [Mass/Vol] 31.0 mg/dL Critically high 7.0-18.0 [facility] Comment on above: Performed By: #### L IPID, BMP #### [facility] [address] [place] [address] Dr. Jag Waldrop Urea nitrogen/Creatinine [Mass ratio] 22.1 mg/mg Normal [facility] Comment on above: Performed By: #### L IPID, BMP #### [facility] [address] [place] [address] Dr. Jag Waldrop CBC AUTO DIFFon 01-23-2022 BASO # 0.1 103/ul Normal 0.0-0.1 [facility] Comment on above: Performed By: #### C BC #### [facility] [address] [place] [address] Dr. Jag Waldrop Basophils/100 WBC (Bld) 1.0 % Normal 0.2-2.0 [facility] Comment on above: Performed By: #### C BC #### [facility] [address] [place] [address] Dr. Jag Waldrop EO # 0.2 103/ul Normal 0.0-0.7 [facility] Comment on above: Performed By: #### C BC #### [facility] [address] [place] [address] Dr. Jag Waldrop Eosinophils/100 WBC (Bld) 3.3 % Normal 0.9-7.0 [facility] Comment on above: Performed By: #### C BC #### [facility] [address] [place] [address] Dr. Jag Waldrop Erythrocyte distribution width (RBC) [Ratio] 13.2 % Normal 11.0-15.0 [facility] Comment on above: Performed By: #### C BC #### [facility] [address] [place] [address] Dr. Jag Waldrop Hematocrit (Bld) [Volume fraction] 35.6 % Critically low 36.0-48.0 [facility] Comment on above: Performed By: #### C BC #### [facility] [address] [place] [address] Dr. Jag Waldrop Hemoglobin (Bld) [Mass/Vol] 10.6 g/dL Critically low 12.0-16.0 [facility] Comment on above: Performed By: #### C BC #### [facility] [address] [place] [address] Dr. Jag Waldrop IG # 0.01 10e3/ul Normal 0.00-0.03 [facility] Comment on above: Performed By: #### C BC #### [facility] [address] [place] [address] Dr. Jag Waldrop IG % 0.2 % Normal 0.0-0.5 [facility] Comment on above: Performed By: #### C BC #### [facility] [address] [place] [address] Dr. Jag Waldrop LYMPH # 1.7 103/ul Normal 1.2-3.8 [facility] Comment on above: Performed By: #### C BC #### [facility] [address] [place] [address] Dr. Jag Waldrop Lymphocytes/100 WBC (Bld) 35.4 % Normal 20.5-60.0 [facility] Comment on above: Performed By: #### C BC #### [facility] [address] [place] [address] Dr. Jag Waldrop MANUAL DIFF REQ NO Normal [facility] Comment on above: Performed By: #### C BC #### [facility] [address] [place] [address] Dr. Jag Waldrop MCH (RBC) [Entitic mass] 29.0 pg Normal 26.7-34.0 [facility] Comment on above: Performed By: #### C BC #### [facility] [address] [place] [address] Dr. Jag Waldrop MCHC (RBC) [Mass/Vol] 29.8 g/dL Critically low 29.9-35.2 [facility] Comment on above: Performed By: #### C BC #### [facility] [address] [place] [address] Dr. Jag Waldrop MCV (RBC) [Entitic vol] 97.3 fL Normal 81.0-99.0 [facility] Comment on above: Performed By: #### C BC #### [facility] [address] [place] [address] Dr. Jag Waldrop MONO # 0.3 103/ul Normal 0.3-0.8 [facility] Comment on above: Performed By: #### C BC #### [facility] [address] [place] [address] Dr. Jag Waldrop Monocytes/100 WBC (Bld) 6.8 % Normal 1.7-12.0 [facility] Comment on above: Performed By: #### C BC #### [facility] [address] [place] [address] Dr. Jag Waldrop NEUT # 2.6 103/ul Normal 1.4-6.5 [facility] Comment on above: Performed By: #### C BC #### [facility] [address] [place] [address] Dr. Jag Waldrop Neutrophils/100 WBC (Bld) 53.3 % Normal 43.0-75.0 [facility] Comment on above: Performed By: #### C BC #### [facility] [address] [place] [address] Dr. Jag Waldrop Platelet mean volume (Bld) [Entitic vol] 11.0 fL Normal 9.5-13.5 [facility] Comment on above: Performed By: #### C BC #### [facility] [address] [place] [address] Dr. Jag Waldrop PLT 230 103/ul Normal 150-450 [facility] Comment on above: Performed By: #### C BC #### [facility] [address] [place] [address] Dr. Jag Waldrop RBC 3.66 106/ul Critically low 4.20-5.40 [facility] Comment on above: Performed By: #### C BC #### [facility] [address] [place] [address] Dr. Jag Waldrop WBC 4.8 103/ul Normal 4.0-11.0 [facility] Comment on above: Performed By: #### C BC #### [facility] [address] [place] [address] Dr. Jag Waldrop FERRITINon 01-23-2022 Ferritin [Mass/Vol] 35.0 ng/mL Normal 8.0-252.0 [facility] Comment on above: Performed By: #### L IPID, BMP #### [facility] [address] [place] [address] Dr. Jag Waldrop IRONon 01-23-2022 Iron [Mass/Vol] 71.0 ug/dL Normal 50.0-170.0 [facility] Comment on above: Performed By: #### L IPID, BMP #### [facility] [address] [place] [address] Dr. Jag Waldrop LIPID PROFILEon 01-23-2022 CHOL-HDL RATIO NORM SEE BELOW Normal [facility] Comment on above: Result Comment: 3.3 - 4.4 LOW RISK 4.4 - 7.1 AVERAGE RISK 7.1 - 11.0 MODERATE RISK >11.0 HIGH RISK Performed By: #### L IPID, BMP #### [facility] [address] [address] [address] Jag Waldrop Cholesterol [Mass/Vol] 133 mg/dL Normal <=200 [facility] Comment on above: Performed By: #### L IPID, BMP #### [facility] [address] [address] [address] Jag Waldrop Cholesterol in HDL [Mass/Vol] 41 mg/dL Normal 40-60 [facility] Comment on above: Performed By: #### L IPID, BMP #### [facility] [address] [address] [address] Jag Waldrop Cholesterol in LDL [Mass/Vol] 70.8 mg/dL Normal [facility] Comment on above: Performed By: #### L IPID, BMP #### [facility] [address] [address] [address] Jag Waldrop Cholesterol.total/Chol esterol in HDL [Mass ratio] 3.2 {ratio} Normal [facility] Comment on above: Performed By: #### L IPID, BMP #### [facility] [address] [address] [address] Jag Waldrop HDL NORMAL > or = 60 mg/dl - LO W CARDIOVASCULAR RISK <40 mg/dl - HIGH CARDIOVASCULAR RISK Normal [facility] Comment on above: Performed By: #### L IPID, BMP #### [facility] [address] [address] [address] Jag Waldrop LDL CALC NORMAL SEE BELOW Normal [facility] Comment on above: Result Comment: <100 mg/dl OPTIMAL 100 - 129 mg/dl NEAR OR ABOVE OPTIMAL 130 - 159 mg/dl BORDERLINE HIGH 160 - 189 mg/dl HIGH >190 mg/dl VERY HIGH Performed By: #### L IPID, BMP #### [facility] [address] [address] [address] Jag Waldrop Triglyceride [Mass/Vol] 106 mg/dL Normal <=150 [facility] Comment on above: Performed By: #### L IPID, BMP #### [facility] [address] [place] [address] Dr. Jag Waldrop VLDL CALC 21.2 mg/dL Normal [facility] Comment on above: Performed By: #### L IPID, BMP #### [facility] [address] [address] [address] Jag Waldrop PROF CHEM 8 (BAS METB)on Anion gap [Moles/Vol] 18.2 mmol/L Normal [facility] Comment on above: Performed By: #### L IPID, BMP #### [facility] [address] [place] [address] Dr. Jag Waldrop Calcium [Mass/Vol] 9.3 mg/dL Normal 8.5-10.1 [facility] Comment on above: Performed By: #### L IPID, BMP #### [facility] [address] [place] [address] Dr. Jag Waldrop Chloride [Moles/Vol] 111 mmol/L Critically high 98-107 [facility] Comment on above: Performed By: #### L IPID, BMP #### [facility] [address] [place] [address] Dr. Jag Waldrop CO2 [Moles/Vol] 19.9 mmol/L Critically low 21.0-32.0 [facility] Comment on above: Performed By: #### L IPID, BMP #### [facility] [address] [place] [address] Dr. Jag Waldrop Creatinine [Mass/Vol] 1.27 mg/dL Critically high 0.55-1.02 [facility] Comment on above: Performed By: #### L IPID, BMP #### [facility] [address] [place] [address] Dr. Jag Waldrop EGFR-AF MONEGASQUE 54 mL/min/1.73m2 Critically low >=60 [facility] Comment on above: Performed By: #### L IPID, BMP #### [facility] [address] [place] [address] Dr. Jag Waldrop EGFR-NON AF MONEGASQUE 44 mL/min/1.73m2 Critically low >=60 [facility] Comment on above: Performed By: #### L IPID, BMP #### [facility] [address] [place] [address] Dr. Jag Waldrop Glucose [Mass/Vol] 129 mg/dL Critically high 74-106 [facility] Comment on above: Performed By: #### L IPID, BMP #### [facility] [address] [place] [address] Dr. Jag Waldrop Potassium [Moles/Vol] 6.1 mmol/L Critically high 3.5-5.1 [facility] Comment on above: Performed By: #### L IPID, BMP #### [facility] [address] [place] [address] Dr. Jag Waldrop Sodium [Moles/Vol] 142 mmol/L Normal 136-145 [facility] Comment on above: Performed By: #### L IPID, BMP #### [facility] [address] [place] [address] Dr. Jag Waldrop Urea nitrogen [Mass/Vol] 35.0 mg/dL Critically high 7.0-18.0 [facility] Comment on above: Performed By: #### L IPID, BMP #### [facility] [address] [place] [address] Dr. Jag Waldrop Urea nitrogen/Creatinine [Mass ratio] 27.6 mg/mg Normal [facility] Comment on above: Performed By: #### L IPID, BMP #### [facility] [address] [place] [address] Dr. Jag Waldrop VITAMIN B12on 01-23-2022 Cobalamin (Vitamin B12) [Mass/Vol] 267.0 pg/mL Normal 193.0-986.0 [facility] Comment on above: Performed By: #### L IPID, BMP #### [facility] [address] [place] [address] Dr. Jag Waldrop XR CSPINE 2_3 VIEWSon [...] by: KATHY LOBATO Date: 2022-01-12 09:39 Normal [facility] BNPon 12-21-2021 Natriuretic peptide B (Bld) [Mass/Vol] 283.0 pg/mL Normal <=900.0 [facility] Comment on above: Performed By: #### P OCGLUC #### [facility] [address] [place] [address] Dr. Jag Waldrop CBC AUTO DIFFon 12-21-2021 BASO # 0.1 103/ul Normal 0.0-0.1 [facility] Comment on above: Performed By: #### L IPID, BMP #### [facility] [address] [place] [address] Dr. Jag Waldrop Basophils/100 WBC (Bld) 0.8 % Normal 0.2-2.0 [facility] Comment on above: Performed By: #### L IPID, BMP #### [facility] [address] [address] [address] Jag Waldrop EO # 0.3 103/ul Normal 0.0-0.7 [facility] Comment on above: Performed By: #### L IPID, BMP #### [facility] [address] [place] [address] Dr. Jag Waldrop Eosinophils/100 WBC (Bld) 3.8 % Normal 0.9-7.0 [facility] Comment on above: Performed By: #### L IPID, BMP #### [facility] [address] [place] [address] Dr. Jag Waldrop Erythrocyte distribution width (RBC) [Ratio] 13.2 % Normal 11.0-15.0 [facility] Comment on above: Performed By: #### L IPID, BMP #### [facility] [address] [place] [address] Dr. Jag Waldrop Hematocrit (Bld) [Volume fraction] 34.8 % Critically low 36.0-48.0 [facility] Comment on above: Performed By: #### L IPID, BMP #### [facility] [address] [place] [address] Dr. Jag Waldrop Hemoglobin (Bld) [Mass/Vol] 10.6 g/dL Critically low 12.0-16.0 [facility] Comment on above: Performed By: #### L IPID, BMP #### [facility] [address] [place] [address] Dr. Jag Waldrop IG # 0.02 10e3/ul Normal 0.00-0.03 [facility] Comment on above: Performed By: #### L IPID, BMP #### [facility] [address] [place] [address] Dr. Jag Waldrop IG % 0.3 % Normal 0.0-0.5 [facility] Comment on above: Performed By: #### L IPID, BMP #### [facility] [address] [place] [address] Dr. Jag Waldrop LYMPH # 1.7 103/ul Normal 1.2-3.8 [facility] Comment on above: Performed By: #### L IPID, BMP #### [facility] [address] [place] [address] Dr. Jag Waldrop Lymphocytes/100 WBC (Bld) 23.8 % Normal 20.5-60.0 [facility] Comment on above: Performed By: #### L IPID, BMP #### [facility] [address] [place] [address] Dr. Jag Waldrop MANUAL DIFF REQ NO Normal [facility] Comment on above: Performed By: #### L IPID, BMP #### [facility] [address] [place] [address] Dr. Jag Waldrop MCH (RBC) [Entitic mass] 29.1 pg Normal 26.7-34.0 [facility] Comment on above: Performed By: #### L IPID, BMP #### [facility] [address] [place] [address] Dr. Jag Waldrop MCHC (RBC) [Mass/Vol] 30.5 g/dL Normal 29.9-35.2 [facility] Comment on above: Performed By: #### L IPID, BMP #### [facility] [address] [place] [address] Dr. Jag Waldrop MCV (RBC) [Entitic vol] 95.6 fL Normal 81.0-99.0 [facility] Comment on above: Performed By: #### L IPID, BMP #### [facility] [address] [place] [address] Dr. Jag Waldrop MONO # 0.7 103/ul Normal 0.3-0.8 [facility] Comment on above: Performed By: #### L IPID, BMP #### [facility] [address] [place] [address] Dr. Jag Waldrop Monocytes/100 WBC (Bld) 9.3 % Normal 1.7-12.0 [facility] Comment on above: Performed By: #### L IPID, BMP #### [facility] [address] [place] [address] Dr. Jag Waldrop NEUT # 4.4 103/ul Normal 1.4-6.5 [facility] Comment on above: Performed By: #### L IPID, BMP #### [facility] [address] [place] [address] Dr. Jag Waldrop Neutrophils/100 WBC (Bld) 62.0 % Normal 43.0-75.0 [facility] Comment on above: Performed By: #### L IPID, BMP #### [facility] [address] [place] [address] Dr. Jag Waldrop Platelet mean volume (Bld) [Entitic vol] 11.5 fL Normal 9.5-13.5 [facility] Comment on above: Performed By: #### L IPID, BMP #### [facility] [address] [place] [address] Dr. Jag Waldrop PLT 235 103/ul Normal 150-450 [facility] Comment on above: Performed By: #### L IPID, BMP #### [facility] [address] [place] [address] Dr. Jag Waldrop RBC 3.64 106/ul Critically low 4.20-5.40 [facility] Comment on above: Performed By: #### L IPID, BMP #### [facility] [address] [place] [address] Dr. Jag Waldrop WBC 7.1 103/ul Normal 4.0-11.0 [facility] Comment on above: Performed By: #### L IPID, BMP #### [facility] [address] [place] [address] Dr. Jag Waldrop CRPon 12-21-2021 CRP 1.1 mg/dL Critically high <=1.0 [facility] Comment on above: Performed By: #### B MP #### [facility] [address] [place] [address] Dr. Jag Waldrop [facility]on SARS-CoV-2 (COVID-19) RNA PRINCE+probe Ql (Unsp spec) Not detected Normal NOT DETECTED [facility] Comment on above: Result Comment: This test is not yet approved or cleared by the [place] FDA. When there are no FDA-approved or cleared tests available, and other criteria are met, FDA can make tests available under an emergency access mechanism called an Emergency Use Authorization (EUA). The EUA for this test is supported by the Vehicle Modification Technician of Health and Human Service's (HHS's) declaration [...] Performed By: #### L IPID, BMP #### [facility] [address] [place] [address] Dr. Jag Waldrop PROF CHEM 8 (BAS METB)on Anion gap [Moles/Vol] 13.3 mmol/L Normal [facility] Comment on above: Performed By: #### B MP #### [facility] [address] [place] [address] Dr. Jag Waldrop Calcium [Mass/Vol] 8.7 mg/dL Normal 8.5-10.1 [facility] Comment on above: Performed By: #### B MP #### [facility] [address] [place] [address] Dr. Jag Waldrop Chloride [Moles/Vol] 107 mmol/L Normal 98-107 [facility] Comment on above: Performed By: #### B MP #### [facility] [address] [place] [address] Dr. Jag Waldrop CO2 [Moles/Vol] 23.2 mmol/L Normal 21.0-32.0 [facility] Comment on above: Performed By: #### B MP #### [facility] [address] [place] [address] Dr. Jag Waldrop Creatinine [Mass/Vol] 1.55 mg/dL Critically high 0.55-1.02 [facility] Comment on above: Performed By: #### B MP #### [facility] [address] [place] [address] Dr. Jag Waldrop EGFR-AF MONEGASQUE 43 mL/min/1.73m2 Critically low >=60 [facility] Comment on above: Performed By: #### B MP #### [facility] [address] [place] [address] Dr. Jag Waldrop EGFR-NON AF MONEGASQUE 35 mL/min/1.73m2 Critically low >=60 [facility] Comment on above: Performed By: #### B MP #### [facility] [address] [address] [address] Jag Waldrop Glucose [Mass/Vol] 123 mg/dL Critically high 74-[address] [facility] Comment on above: Performed By: #### B MP #### [facility] [address] [address] [address] Jag Waldrop Potassium [Moles/Vol] 4.5 mmol/L Normal 3.5-5.1 [facility] Comment on above: Performed By: #### B MP #### [facility] [address] [address] [address] Jag Waldrop Sodium [Moles/Vol] 139 mmol/L Normal 136-145 [facility] Comment on above: Performed By: #### B MP #### [facility] [address] [address] [address] Jag Waldrop Urea nitrogen [Mass/Vol] 36.0 mg/dL Critically high 7.0-18.0 [facility] Comment on above: Performed By: #### B MP #### [facility] [address] [address] [address] Jag Waldrop Urea nitrogen/Creatinine [Mass ratio] 23.2 mg/mg Normal [facility] Comment on above: Performed By: #### B MP #### [facility] [address] [address] [address] Jag Waldrop [facility] SED RATE 26 mm/hr Normal <=30 [facility] Comment on above: Performed By: #### S EDR #### [facility] [address] [address] [address] Jag Waldrop XR CHEST 2 Von [...] by: ALEX ALLEN Date: 2021-12-21 18:35 Normal [facility] OVA AND PARASITE EXAMINATION on 12-06-2021 Ova + Parasite Exam Final report Normal [facility] Comment on above: Result Comment: Thes e results were obtained using wet preparation(s) and trichrome stained smear. This test does not include testing for Cryptosporidium parvum, Cyclospora, or Microsporidia. Performed By: #### L IPID, BMP #### [facility] [address] [place] [address] Dr. Jag Waldrop Result 1 Comment Normal [facility] Comment on above: Result Comment: No o va, cysts, or parasites seen. . One negative specimen does not rule out the possibility of a parasitic infection. Performed By: #### L IPID, BMP #### [facility] [address] [place] [address] Dr. Jag Waldrop STOOL CULTUREon 12-05-2021 Campylobacter Culture Final report Normal [facility] Comment on above: Performed By: #### C XSTOOL #### [facility] [address] [place] [address] Dr. Jag Waldrop E coli Shiga Toxin EIA Negative Normal Negative [facility] Comment on above: Performed By: #### C XSTOOL #### [facility] [address] [place] [address] Dr. Jag Waldrop Result 1 Comment Normal [facility] Comment on above: Result Comment: No S almonella or Shigella recovered. Performed By: #### C XSTOOL #### [facility] [address] [place] [address] Dr. Jag Waldrop Result Comment: No C ampylobacter species isolated. Salmonella/Shigella Screen Final report Normal [facility] Comment on above: Performed By: #### C XSTOOL #### [facility] [address] [place] [address] Dr. Jag Waldrop GI PANEL (PCR)on 11-30-2021 Adenovirus F 40/41 Not detected Normal NOT DETECTED [facility] Comment on above: Performed By: #### E RUR #### [facility] [address] [place] [address] Dr. Jag Waldrop Astrovirus Not detected Normal NOT DETECTED [facility] Comment on above: Performed By: #### E RUR #### [facility] [address] [place] [address] Dr. Jag Waldrop C. Diff toxin A/B Detected Critically abnormal NOT DETECTED [facility] Comment on above: Performed By: #### E RUR #### [facility] [address] [place] [address] Dr. Jag Waldrop Campylobacter Not detected Normal NOT DETECTED [facility] Comment on above: Performed By: #### E RUR #### [facility] [address] [place] [address] Dr. Jag Waldrop Cryptosporidium Not detected Normal NOT DETECTED [facility] Comment on above: Performed By: #### E RUR #### [facility] [address] [place] [address] Dr. Jag Waldrop Cyclos. Cayetanensis Not detected Normal NOT DETECTED [facility] Comment on above: Performed By: #### E RUR #### [facility] [address] [place] [address] Dr. Jag Waldrop E. Coli O157 Not Applicable Normal Not Applicable [facility] Comment on above: Performed By: #### E RUR #### [facility] [address] [place] [address] Dr. Jag Waldrop E. histolytica Not detected Normal NOT DETECTED [facility] Comment on above: Performed By: #### E RUR #### [facility] [address] [place] [address] Dr. Jag Waldrop EAEC Not detected Normal NOT DETECTED [facility] Comment on above: Performed By: #### E RUR #### [facility] [address] [place] [address] Dr. Jag Waldrop EIEC Not detected Normal NOT DETECTED [facility] Comment on above: Performed By: #### E RUR #### [facility] [address] [place] [address] Dr. Jag Waldrop EPEC Not detected Normal NOT DETECTED [facility] Comment on above: Performed By: #### E RUR #### [facility] [address] [place] [address] Dr. Jag Waldrop ETEC Not detected Normal NOT DETECTED [facility] Comment on above: Performed By: #### E RUR #### [facility] [address] [place] [address] Dr. Jag Hernandez Lamblia Not detected Normal NOT DETECTED [facility] Comment on above: Performed By: #### E RUR #### [facility] [address] [place] [address] Dr. Jag TANG CONTROLS PASSED Normal [facility] Comment on above: Performed By: #### E RUR #### [facility] [address] [place] [address] Dr. Jag TEJEDA HEADER GI PANEL BACTERIA Normal [facility] Comment on above: Performed By: #### E RUR #### [facility] [address] [place] [address] Dr. Jag SANCHEZ ECOLI GI PANEL DIARRHEAGEN IC E.COLI / SHIGELLA Normal [facility] Comment on above: Performed By: #### E RUR #### [facility] [address] [place] [address] Dr. Jag SANCHEZ INFO SEE BELOW [facility] Comment on above: Result Comment: EAEC - Enteroaggregative E. Coli EPEC- Enteropathogenic E. Coli ETEC- Enterotoxigenic E. Coli lt/st STEC- Shigella-like toxin-producing E. Coli stx1/stx2 EIEC- Shigella/Enteroinvasive E. Coli Performed By: #### E RUR #### [facility] [address] [place] [address] Dr. Jag SANCHEZ PARASITES GI PANEL PARASITES Normal [facility] Comment on above: Performed By: #### E RUR #### [facility] [address] [place] [address] Dr. Jag SNACHEZ VIRUS GI PANEL VIRUSES Normal [facility] Comment on above: Performed By: #### E RUR #### [facility] [address] [place] [address] Dr. Jag Waldrop Norovirus GI/GII Not detected Normal NOT DETECTED [facility] Comment on above: Performed By: #### E RUR #### [facility] [address] [place] [address] Dr. Jag Waldrop P. Shigelloides Not detected Normal NOT DETECTED [facility] Comment on above: Performed By: #### E RUR #### [facility] [address] [place] [address] Dr. Jag Waldrop Rotavirus A Not detected Normal NOT DETECTED [facility] Comment on above: Performed By: #### E RUR #### [facility] [address] [place] [address] Dr. Jag Waldrop Salmonella Not detected Normal NOT DETECTED [facility] Comment on above: Performed By: #### E RUR #### [facility] [address] [place] [address] Dr. Jag Waldrop Sapovirus Not detected Normal NOT DETECTED [facility] Comment on above: Performed By: #### E RUR #### [facility] [address] [place] [address] Dr. Jag Waldrop STEC Not detected Normal NOT DETECTED [facility] Comment on above: Performed By: #### E RUR #### [facility] [address] [place] [address] Dr. Jag Waldrop Vibrio Not detected Normal NOT DETECTED [facility] Comment on above: Performed By: #### E RUR #### [facility] [address] [place] [address] Dr. Jag Waldrop Vibrio Cholera Not detected Normal NOT DETECTED [facility] Comment on above: Performed By: #### E RUR #### [facility] [address] [place] [address] Dr. Jag Waldrop Y. Enterocolitica Not detected Normal NOT DETECTED [facility] Comment on above: Performed By: #### E RUR #### [facility] [address] [address] [address] Jag Waldrop OCC BLD IMMUNO SCREENon 11-14 OCCULT BLOOD Negative Normal NEGATIVE [facility] Comment on above: Performed By: #### L IPID, BMP #### [facility] [address] [address] [address] Jag Waldrop PROF CHEM 8 (BAS METB)on Anion gap [Moles/Vol] 15.5 mmol/L Normal [facility] Comment on above: Performed By: #### P OCGLUC #### [facility] [address] [address] [address] Jag Waldrop Calcium [Mass/Vol] 9.1 mg/dL Normal 8.5-10.1 [facility] Comment on above: Performed By: #### P OCGLUC #### [facility] [address] [address] [address] Jag Waldrop Chloride [Moles/Vol] 106 mmol/L Normal 98-107 [facility] Comment on above: Performed By: #### P OCGLUC #### [facility] [address] [address] [address] Jag Waldrop CO2 [Moles/Vol] 25.4 mmol/L Normal 21.0-32.0 [facility] Comment on above: Performed By: #### P OCGLUC #### [facility] [address] [address] [address] Jag Waldrop Creatinine [Mass/Vol] 1.18 mg/dL Critically high 0.55-1.02 [facility] Comment on above: Performed By: #### P OCGLUC #### [facility] [address] [address] [address] Jag Waldrop EGFR-AF MONEGASQUE 59 mL/min/1.73m2 Critically low >=60 [facility] Comment on above: Performed By: #### P OCGLUC #### [facility] [address] [address] [address] Jag Waldrop EGFR-NON AF MONEGASQUE 48 mL/min/1.73m2 Critically low >=60 [facility] Comment on above: Performed By: #### P OCGLUC #### [facility] [address] [address] [address] Jag Waldrop Glucose [Mass/Vol] 141 mg/dL Critically high 74-[address] [facility] Comment on above: Performed By: #### P OCGLUC #### [facility] [address] [address] [address] Jag Waldrop Potassium [Moles/Vol] 3.9 mmol/L Normal 3.5-5.1 [facility] Comment on above: Performed By: #### P OCGLUC #### [facility] [address] [address] [address] Jag Waldrop Sodium [Moles/Vol] 143 mmol/L Normal 136-145 [facility] Comment on above: Performed By: #### P OCGLUC #### [facility] [address] [address] [address] Jag Waldrop Urea nitrogen [Mass/Vol] 22.0 mg/dL Critically high 7.0-18.0 [facility] Comment on above: Performed By: #### P OCGLUC #### [facility] [address] [address] [address] Jag Waldrop Urea nitrogen/Creatinine [Mass ratio] 18.6 mg/mg Normal [facility] Comment on above: Performed By: #### P OCGLUC #### [facility] [address] [address] [address] Jag Waldrop XR KUB 1 VIEWon [...] ALEX ALLEN Date: 2021-10-29 09:01 Normal [facility] CULTURE URINEon 10-28-2021 CULTURE URINE Culture Observations : LIGHT GROWTH OF MIXED GENITAL SANDEE. NO POTENTIAL PATHOGENS SEEN. Normal [facility] Comment on above: Performed By: #### E RUR #### [facility] [address] [place] [address] Dr. Jag Waldrop GLYCOHEMOGLOBIN A1Con 2021 ADA RECOMMENDATION SEE BELOW Normal [facility] Comment on above: Result Comment: ADA RECOMMENDED LIMIT 4.0 - 6.0 ADA THERAPEUTIC TARGET < 7.0 ACTION SUGGESTED > 7.0 Performed By: #### E RUR #### [facility] [address] [place] [address] Dr. Jag Waldrop Glucose [Mass/Vol] 157 mg/dL Normal [facility] Comment on above: Performed By: #### E RUR #### [facility] [address] [place] [address] Dr. Jag Waldrop HbA1c (Bld) [Mass fraction] 7.1 % Critically high 4.5-6.2 [facility] Comment on above: Performed By: #### E RUR #### [facility] [address] [place] [address] Dr. Jag Waldrop LIPID PROFILEon 10-28-2021 CHOL-HDL RATIO NORM SEE BELOW Normal [facility] Comment on above: Result Comment: 3.3 - 4.4 LOW RISK 4.4 - 7.1 AVERAGE RISK 7.1 - 11.0 MODERATE RISK >11.0 HIGH RISK Performed By: #### P OCGLUC #### [facility] [address] [place] [address] Dr. Jag Waldrop Cholesterol [Mass/Vol] 150 mg/dL Normal <=200 [facility] Comment on above: Performed By: #### P OCGLUC #### [facility] [address] [place] [address] Dr. Jag Waldrop Cholesterol in HDL [Mass/Vol] 39 mg/dL Critically low 40-60 [facility] Comment on above: Performed By: #### P OCGLUC #### [facility] [address] [place] [address] Dr. Jag Waldrop Cholesterol in LDL [Mass/Vol] 82.6 mg/dL Normal [facility] Comment on above: Performed By: #### P OCGLUC #### [facility] [address] [address] [address] Jag Waldrop Cholesterol.total/Chol esterol in HDL [Mass ratio] 3.8 {ratio} Normal [facility] Comment on above: Performed By: #### P OCGLUC #### [facility] [address] [address] [address] Jag Waldrop HDL NORMAL > or = 60 mg/dl - LO W CARDIOVASCULAR RISK <40 mg/dl - HIGH CARDIOVASCULAR RISK Normal [facility] Comment on above: Performed By: #### P OCGLUC #### [facility] [address] [address] [address] Jag Waldrop LDL CALC NORMAL SEE BELOW Normal [facility] Comment on above: Result Comment: <100 mg/dl OPTIMAL 100 - 129 mg/dl NEAR OR ABOVE OPTIMAL 130 - 159 mg/dl BORDERLINE HIGH 160 - 189 mg/dl HIGH >190 mg/dl VERY HIGH Performed By: #### P OCGLUC #### [facility] [address] [address] [address] Jag Waldrop Triglyceride [Mass/Vol] 142 mg/dL Normal <=150 [facility] Comment on above: Performed By: #### P OCGLUC #### [facility] [address] [place] [address] Dr. Jag Waldrop VLDL CALC 28.4 mg/dL Normal [facility] Comment on above: Performed By: #### P OCGLUC #### [facility] [address] [address] [address] Jag Waldrop PROF CHEM 8 (BAS METB)on Anion gap [Moles/Vol] 16.0 mmol/L Normal [facility] Comment on above: Performed By: #### P OCGLUC #### [facility] [address] [place] [address] Dr. Jag Waldrop Calcium [Mass/Vol] 8.7 mg/dL Normal 8.5-10.1 [facility] Comment on above: Performed By: #### P OCGLUC #### [facility] [address] [address] [address] Jga Waldrop Chloride [Moles/Vol] 108 mmol/L Critically high 98-107 [facility] Comment on above: Performed By: #### P OCGLUC #### [facility] [address] [address] [address] Jag Waldrop CO2 [Moles/Vol] 22.1 mmol/L Normal 21.0-32.0 [facility] Comment on above: Performed By: #### P OCGLUC #### [facility] [address] [address] [address] Jag Waldrop Creatinine [Mass/Vol] 1.72 mg/dL Critically high 0.55-1.02 [facility] Comment on above: Performed By: #### P OCGLUC #### [facility] [address] [address] [address] Jag Waldrop EGFR-AF MONEGASQUE 38 mL/min/1.73m2 Critically low >=60 [facility] Comment on above: Performed By: #### P OCGLUC #### [facility] [address] [place] [address] Dr. Jag Waldrop EGFR-NON AF MONEGASQUE 31 mL/min/1.73m2 Critically low >=60 [facility] Comment on above: Performed By: #### P OCGLUC #### [facility] [address] [address] [address] Jag Waldrop Glucose [Mass/Vol] 144 mg/dL Critically high 74-106 [facility] Comment on above: Performed By: #### P OCGLUC #### [facility] [address] [address] [address] Jag Waldrop Potassium [Moles/Vol] 5.1 mmol/L Normal 3.5-5.1 [facility] Comment on above: Performed By: #### P OCGLUC #### [facility] [address] [address] [address] Jag Waldrop Sodium [Moles/Vol] 141 mmol/L Normal 136-145 [facility] Comment on above: Performed By: #### P OCGLUC #### [facility] [address] [address] [address] Jag Waldrop Urea nitrogen [Mass/Vol] 41.0 mg/dL Critically high 7.0-18.0 [facility] Comment on above: Performed By: #### P OCGLUC #### [facility] [address] [place] [address] Dr. Jag Waldrop Urea nitrogen/Creatinine [Mass ratio] 23.8 mg/mg Normal [facility] Comment on above: Performed By: #### P OCGLUC #### [facility] [address] [place] [address] Dr. Jag Waldrop UA (CLEAN/CATCH) ELECTRONIC BENCH TECHNICIAN/MICRO I F IND.on 10-28-2021 Bilirubin Ql (U) Negative Normal NEGATIVE [facility] Comment on above: Performed By: #### L IPID, BMP #### [facility] [address] [place] [address] Dr. Jag Waldrop Clarity (U) SL CLOUDY Abnormal CLEAR [facility] Comment on above: Performed By: #### L IPID, BMP #### [facility] [address] [place] [address] Dr. Jag Waldrop Color (U) LT. YELLOW Normal YELLOW [facility] Comment on above: Performed By: #### L IPID, BMP #### [facility] [address] [place] [address] Dr. Jag Waldrop Glucose Ql (U) Negative Normal NEGATIVE [facility] Comment on above: Performed By: #### L IPID, BMP #### [facility] [address] [place] [address] Dr. Jag Waldrop Hemoglobin Ql (U) TRACE-INTACT Abnormal NEGATIVE [facility] Comment on above: Performed By: #### L IPID, BMP #### [facility] [address] [place] [address] Dr. Jag Waldrop Ketones Ql (U) Negative Normal NEGATIVE [facility] Comment on above: Performed By: #### L IPID, BMP #### [facility] [address] [place] [address] Dr. Jag Waldrop LEUKOCYTES SMALL Abnormal NEGATIVE [facility] Comment on above: Performed By: #### L IPID, BMP #### [facility] [address] [place] [address] Dr. Jag Waldrop Nitrite Ql (U) Negative Normal NEGATIVE [facility] Comment on above: Performed By: #### L IPID, BMP #### [facility] [address] [place] [address] Dr. Jag Waldrop pH (U) 5.5 [pH] Normal 5-9 [facility] Comment on above: Performed By: #### L IPID, BMP #### [facility] [address] [place] [address] Dr. Jag Waldrop SPEC GRAVITY 1.020 Normal 1.005-<=1.0 25 [facility] Comment on above: Performed By: #### L IPID, BMP #### [facility] [address] [place] [address] Dr. Jag Waldrop UA PROTEIN Negative Normal NEGATIVE/ TRACE [facility] Comment on above: Performed By: #### L IPID, BMP #### [facility] [address] [place] [address] Dr. Jag Waldrop UR MICRO IND INDICATED Normal [facility] Comment on above: Performed By: #### L IPID, BMP #### [facility] [address] [place] [address] Dr. Jag Waldrop Urobilinogen Qn (U) 0.2 {Chris'U}/dL Normal 0.2 - 1. 0 [facility] Comment on above: Performed By: #### L IPID, BMP #### [facility] [address] [place] [address] Dr. Jag Waldrop URINE MICROSCOPIC ONLYon BACTERIA TRACE Abnormal NONE SEEN [facility] Comment on above: Performed By: #### L IPID, BMP #### [facility] [address] [place] [address] Dr. Jag Waldrop Bacteria identified Cx Nom (U) INDICATED Normal [facility] Comment on above: Performed By: #### L IPID, BMP #### [facility] [address] [place] [address] Dr. Jag Waldrop CAST NONE SEEN Normal NONE SEEN [facility] Comment on above: Performed By: #### L IPID, BMP #### [facility] [address] [place] [address] Dr. Jag Waldrop Crystals LM Nom (Urine sed) NONE SEEN Normal NONE SEEN [facility] Comment on above: Performed By: #### L IPID, BMP #### [facility] [address] [place] [address] Dr. Jag Waldrop Epithelial cells LM Ql (Urine sed) RARE Normal NONE SEEN /RARE [facility] Comment on above: Performed By: #### L IPID, BMP #### [facility] [address] [place] [address] Dr. Jag Waldrop MUCOUS TRACE Abnormal NONE SEEN [facility] Comment on above: Performed By: #### L IPID, BMP #### [facility] [address] [place] [address] Dr. Jag Waldrop RBC 0-2 Normal 0-2 [facility] Comment on above: Performed By: #### L IPID, BMP #### [facility] [address] [place] [address] Dr. Jag Waldrop WBC 2-5 Abnormal NONE SEEN [facility] Comment on above: Performed By: #### L IPID, BMP #### [facility] [address] [place] [address] Dr. Jag Waldrop BNPon 10-02-2021 Natriuretic peptide B (Bld) [Mass/Vol] 52.0 pg/mL Normal <=900.0 [facility] Comment on above: Performed By: #### L IPID, BMP #### [facility] [address] [place] [address] Dr. Jag Waldrop CBC AUTO DIFFon 10-02-2021 BASO # 0.1 103/ul Normal 0.0-0.1 [facility] Comment on above: Performed By: #### P OCGLUC #### [facility] [address] [place] [address] Dr. Jag Waldrop Basophils/100 WBC (Bld) 0.8 % Normal 0.2-2.0 [facility] Comment on above: Performed By: #### P OCGLUC #### [facility] [address] [place] [address] Dr. Jag Waldrop EO # 0.2 103/ul Normal 0.0-0.7 [facility] Comment on above: Performed By: #### P OCGLUC #### [facility] [address] [place] [address] Dr. Jag Waldrop Eosinophils/100 WBC (Bld) 3.0 % Normal 0.9-7.0 [facility] Comment on above: Performed By: #### P OCGLUC #### [facility] [address] [place] [address] Dr. Jag Waldrop Erythrocyte distribution width (RBC) [Ratio] 14.2 % Normal 11.0-15.0 [facility] Comment on above: Performed By: #### P OCGLUC #### [facility] [address] [place] [address] Dr. Jag Waldrop Hematocrit (Bld) [Volume fraction] 35.9 % Critically low 36.0-48.0 [facility] Comment on above: Performed By: #### P OCGLUC #### [facility] [address] [place] [address] Dr. Jag Waldrop Hemoglobin (Bld) [Mass/Vol] 11.0 g/dL Critically low 12.0-16.0 [facility] Comment on above: Performed By: #### P OCGLUC #### [facility] [address] [place] [address] Dr. Jag Waldrop IG # 0.03 10e3/ul Normal 0.00-0.03 [facility] Comment on above: Performed By: #### P OCGLUC #### [facility] [address] [place] [address] Dr. Jag Waldrop IG % 0.4 % Normal 0.0-0.5 [facility] Comment on above: Performed By: #### P OCGLUC #### [facility] [address] [place] [address] Dr. Jag Waldrop LYMPH # 2.8 103/ul Normal 1.2-3.8 [facility] Comment on above: Performed By: #### P OCGLUC #### [facility] [address] [place] [address] Dr. Jag Waldrop Lymphocytes/100 WBC (Bld) 37.9 % Normal 20.5-60.0 [facility] Comment on above: Performed By: #### P OCGLUC #### [facility] [address] [place] [address] Dr. Jag Waldrop MANUAL DIFF REQ NO Normal [facility] Comment on above: Performed By: #### P OCGLUC #### [facility] [address] [place] [address] Dr. Jag Waldrop MCH (RBC) [Entitic mass] 28.7 pg Normal 26.7-34.0 [facility] Comment on above: Performed By: #### P OCGLUC #### [facility] [address] [place] [address] Dr. Jag Waldrop MCHC (RBC) [Mass/Vol] 30.6 g/dL Normal 29.9-35.2 [facility] Comment on above: Performed By: #### P OCGLUC #### [facility] [address] [place] [address] Dr. Jag Waldrop MCV (RBC) [Entitic vol] 93.7 fL Normal 81.0-99.0 [facility] Comment on above: Performed By: #### P OCGLUC #### [facility] [address] [place] [address] Dr. Jag Waldrop MONO # 0.5 103/ul Normal 0.3-0.8 [facility] Comment on above: Performed By: #### P OCGLUC #### [facility] [address] [place] [address] Dr. Jag Waldrop Monocytes/100 WBC (Bld) 7.4 % Normal 1.7-12.0 [facility] Comment on above: Performed By: #### P OCGLUC #### [facility] [address] [place] [address] Dr. Jag Waldrop NEUT # 3.7 103/ul Normal 1.4-6.5 [facility] Comment on above: Performed By: #### P OCGLUC #### [facility] [address] [address] [address] Jag Waldrop Neutrophils/100 WBC (Bld) 50.5 % Normal 43.0-75.0 [facility] Comment on above: Performed By: #### P OCGLUC #### [facility] [address] [address] [address] Jag Waldrop Platelet mean volume (Bld) [Entitic vol] 10.2 fL Normal 9.5-13.5 [facility] Comment on above: Performed By: #### P OCGLUC #### [facility] [address] [address] [address] Jag Waldrop PLT 261 103/ul Normal 150-450 [facility] Comment on above: Performed By: #### P OCGLUC #### [facility] [address] [address] [address] Jag Waldrop RBC 3.83 106/ul Critically low 4.20-5.40 [facility] Comment on above: Performed By: #### P OCGLUC #### [facility] [address] [address] [address] Jag Waldrop WBC 7.3 103/ul Normal 4.0-11.0 [facility] Comment on above: Performed By: #### P OCGLUC #### [facility] [address] [address] [address] Jag Waldrop POINT OF CARE GLUCOSEon 09-14 Glucose [Mass/Vol] 156 mg/dL Critically high 74-106 [facility] Comment on above: Performed By: #### P OCGLUC #### [facility] [address] [address] [address] Jag Waldrop Glucose [Mass/Vol] 304 mg/dL Critically high 74-106 [facility] Comment on above: Performed By: #### P OCGLUC #### [facility] [address] [address] [address] Jag Waldrop Glucose [Mass/Vol] 77 mg/dL Normal 74-106 [facility] Comment on above: Performed By: #### E RUR #### [facility] [address] [address] [address] Jag Waldrop Glucose [Mass/Vol] 136 mg/dL Critically high 74-[address] [facility] Comment on above: Performed By: #### E RUR #### [facility] [address] [address] [address] Jag Waldrop Glucose [Mass/Vol] 73 mg/dL Critically low 74-106 [facility] Comment on above: Performed By: #### E RUR #### [facility] [address] [address] [address] Jag Waldrop PROF CHEM 8 (BAS METB)on Anion gap [Moles/Vol] 15.5 mmol/L Normal [facility] Comment on above: Performed By: #### P OCGLUC #### [facility] [address] [place] [address] Dr. Jag Waldrop Calcium [Mass/Vol] 8.3 mg/dL Critically low 8.5-10.1 [facility] Comment on above: Performed By: #### P OCGLUC #### [facility] [address] [place] [address] Dr. Jag Waldrop Chloride [Moles/Vol] 108 mmol/L Critically high 98-107 [facility] Comment on above: Performed By: #### P OCGLUC #### [facility] [address] [address] [address] Jag Waldrop CO2 [Moles/Vol] 18.9 mmol/L Critically low 21.0-32.0 [facility] Comment on above: Performed By: #### P OCGLUC #### [facility] [address] [address] [address] Jag Waldrop Creatinine [Mass/Vol] 1.43 mg/dL Critically high 0.55-1.02 [facility] Comment on above: Performed By: #### P OCGLUC #### [facility] [address] [place] [address] Dr. Jag Waldrop EGFR-AF MONEGASQUE 47 mL/min/1.73m2 Critically low >=60 [facility] Comment on above: Performed By: #### P OCGLUC #### [facility] [address] [address] [address] Jag Waldrop EGFR-NON AF MONEGASQUE 39 mL/min/1.73m2 Critically low >=60 [facility] Comment on above: Performed By: #### P OCGLUC #### [facility] [address] [address] [address] Jag Waldrop Glucose [Mass/Vol] 269 mg/dL Critically high 74-106 [facility] Comment on above: Performed By: #### P OCGLUC #### [facility] [address] [address] [address] Jag Waldrop Potassium [Moles/Vol] 5.4 mmol/L Critically high 3.5-5.1 [facility] Comment on above: Performed By: #### P OCGLUC #### [facility] [address] [address] [address] Jag Waldrop Sodium [Moles/Vol] 137 mmol/L Normal 136-145 [facility] Comment on above: Performed By: #### P OCGLUC #### [facility] [address] [place] [address] Dr. Jag Waldrop Urea nitrogen [Mass/Vol] 40.0 mg/dL Critically high 7.0-18.0 [facility] Comment on above: Performed By: #### P OCGLUC #### [facility] [address] [address] [address] Jag Waldrop Urea nitrogen/Creatinine [Mass ratio] 28.0 mg/mg Normal [facility] Comment on above: Performed By: #### P OCGLUC #### [facility] [address] [address] [address] Jag Waldrop Anion gap [Moles/Vol] 14.0 mmol/L Normal [facility] Comment on above: Performed By: #### E RUR #### [facility] [address] [address] [address] Jag Waldrop Calcium [Mass/Vol] 8.9 mg/dL Normal 8.5-10.1 [facility] Comment on above: Performed By: #### E RUR #### [facility] [address] [place] [address] Dr. Jag Waldrop Chloride [Moles/Vol] 110 mmol/L Critically high 98-107 [facility] Comment on above: Performed By: #### E RUR #### [facility] [address] [place] [address] Dr. Jag Waldrop CO2 [Moles/Vol] 21.1 mmol/L Normal 21.0-32.0 [facility] Comment on above: Performed By: #### E RUR #### [facility] [address] [place] [address] Dr. Jag Wladrop Creatinine [Mass/Vol] 1.32 mg/dL Critically high 0.55-1.02 [facility] Comment on above: Performed By: #### E RUR #### [facility] [address] [place] [address] Dr. Jag Waldrop EGFR-AF MONEGASQUE 52 mL/min/1.73m2 Critically low >=60 [facility] Comment on above: Performed By: #### E RUR #### [facility] [address] [place] [address] Dr. Jag Waldrop EGFR-NON AF MONEGASQUE 43 mL/min/1.73m2 Critically low >=60 [facility] Comment on above: Performed By: #### E RUR #### [facility] [address] [place] [address] Dr. Jag Waldrop Glucose [Mass/Vol] 79 mg/dL Normal 74-106 [facility] Comment on above: Performed By: #### E RUR #### [facility] [address] [place] [address] Dr. Jag Waldrop Potassium [Moles/Vol] 6.1 mmol/L Critically high 3.5-5.1 [facility] Comment on above: Result Comment: Test Repeated. Critical Value Verified Performed By: #### E RUR #### [facility] [address] [place] [address] Dr. Jag Waldrop Sodium [Moles/Vol] 140 mmol/L Normal 136-145 [facility] Comment on above: Performed By: #### E RUR #### [facility] [address] [address] [address] Jag Waldrop Urea nitrogen [Mass/Vol] 45.0 mg/dL Critically high 7.0-18.0 [facility] Comment on above: Performed By: #### E RUR #### [facility] [address] [address] [address] Jag Waldrop Urea nitrogen/Creatinine [Mass ratio] 34.1 mg/mg Normal [facility] Comment on above: Performed By: #### E RUR #### [facility] [address] [address] [address] Jag Waldrop BASIC METABOLIC PANELon 08-14 Calcium [Mass/Vol] 8.9 mg/dL Normal 8.6-10.3 [facility] Comment on above: Order Comment: No: D o not add to previous draw Performed By: #### 5 6101, [id number] #### [facility] [address] [place] [address], [place] Chloride [Moles/Vol] 105 mmol/L Normal 98-107 [facility] Comment on above: Order Comment: No: D o not add to previous draw Performed By: #### 5 6101, 33366 #### [facility] [address] [place] [address], [place] CO2 [Moles/Vol] 26 mmol/L Normal 21-31 [facility] Comment on above: Order Comment: No: D o not add to previous draw Performed By: #### 5 6101, 21479 #### [facility] [address] [place] [address], [place] Creatinine [Mass/Vol] 0.99 mg/dL Normal 0.60-1.20 [facility] Comment on above: Order Comment: No: D o not add to previous draw Performed By: #### 5 6101, 53356 #### [facility] [address] [place] [address], [place] GFR/1.73 sq M predicted among blacks MDRD (S/P/Bld) [Vol rate/Area] mL/min/{1.73_m2} Normal >60 [facility] Comment on above: Order Comment: No: D o not add to previous draw Performed By: #### 5 610, 74770 #### [facility] [address] [place] [address], [place] GFR/1.73 sq M predicted among non-blacks MDRD (S/P/Bld) [Vol rate/Area] mL/min/{1.73_m2} Normal >60 [facility] Comment on above: Order Comment: No: D o not add to previous draw Performed By: #### 5 610, 69277 #### [facility] [address] [place] [address], [place] Glucose [Mass/Vol] 145 mg/dL High 70-100 [facility] Comment on above: Order Comment: No: D o not add to previous draw Performed By: #### 5 610, 06257 #### [facility] [address] [place] [address], [place] Potassium [Moles/Vol] 3.7 mmol/L Normal 3.5-5.1 [facility] Comment on above: Order Comment: No: D o not add to previous draw Performed By: #### 5 610, 09965 #### [facility] [address] [place] [address], [place] Sodium [Moles/Vol] 139 mmol/L Normal 136-145 [facility] Comment on above: Order Comment: No: D o not add to previous draw Performed By: #### 5 610, 48523 #### [facility] [address] [place] [address], [place] Urea nitrogen [Mass/Vol] 26 mg/dL High 7-25 [facility] Comment on above: Order Comment: No: D o not add to previous draw Performed By: #### 5 6101, 56700 #### [facility] [address] [place] [address], [facility] CBC W/DIFFon 08-25-2018 ABS BASOPHILS 0.0 10*3/uL Normal 0.0-0.2 [facility] Comment on above: Order Comment: No: D o not add to previous draw Performed By: #### 5 610, 85474 #### [facility] [address] [facility] [place] [address], [facility] ABS IMM GRANS 0.0 10*3/uL Normal 0.0-0.2 [facility] Comment on above: Order Comment: No: D o not add to previous draw Performed By: #### 5 610, 15917 #### [facility] [address] [facility] [address], [facility] ABS NEUTROPHILS 2.3 10*3/uL Normal 1.6-7.6 [facility] Comment on above: Order Comment: No: D o not add to previous draw Performed By: #### 5 610, 12332 #### [facility] [address] [place] [address], [facility] Basophils/100 WBC (Bld) 0.3 % Normal 0.0-1.0 [facility] Comment on above: Order Comment: No: D o not add to previous draw Performed By: #### 5 610, 86010 #### [facility] [address] [place] [address], [facility] Eosinophils (Bld) [#/Vol] 0.0 10*3/uL Normal 0.0-0.5 [facility] Comment on above: Order Comment: No: D o not add to previous draw Performed By: #### 5 610, 48560 #### [facility] [address] [place] [address], [facility] Eosinophils/100 WBC (Bld) 0.0 % Normal 0.0-6.0 [facility] Comment on above: Order Comment: No: D o not add to previous draw Performed By: #### 5 6100, 77230 #### [facility] [address] [place] [address], [facility] Erythrocyte distribution width (RBC) [Ratio] 13.3 % Normal 11.5-15.0 [facility] Comment on above: Order Comment: No: D o not add to previous draw Performed By: #### 5 6100, 93168 #### [facility] [address] [place] [id number], [facility] Hematocrit (Bld) [Volume fraction] 37.7 % Normal 36.0-45.0 [facility] Comment on above: Order Comment: No: D o not add to previous draw Performed By: #### 5 6100, 18332 #### [facility] [address] [place] [id number], [facility] Hemoglobin (Bld) [Mass/Vol] 12.1 g/dL Normal 12.0-15.0 [facility] Comment on above: Order Comment: No: D o not add to previous draw Performed By: #### 5 6100, 39493 #### [facility] [address] [place] [address], [facility] IMMATURE GRANS 0.2 % Normal 0.0-1.0 [facility] Comment on above: Order Comment: No: D o not add to previous draw Performed By: #### 5 6100, 47210 #### [facility] [address] [place] [id number], [place] Lymphocytes (Bld) [#/Vol] 3.0 10*3/uL Normal 1.2-4.0 [facility] Comment on above: Order Comment: No: D o not add to previous draw Performed By: #### 5 6100, 24840 #### [facility] [address] [place] [id number], [place] Lymphocytes/100 WBC (Bld) 52.0 % High 20.0-45.0 [facility] Comment on above: Order Comment: No: D o not add to previous draw Performed By: #### 5 6100, 51729 #### [facility] [address] [place] [address], [facility] MCH (RBC) [Entitic mass] 28.7 pg Normal 27.0-33.0 [facility] Comment on above: Order Comment: No: D o not add to previous draw Performed By: #### 5 6100, 42251 #### [facility] [address] [place] [address], [facility] MCHC (RBC) [Mass/Vol] 32.1 g/dL Normal 32.0-35.0 [facility] Comment on above: Order Comment: No: D o not add to previous draw Performed By: #### 5 6100, 97516 #### [facility] [address] [place] [address], [facility] MCV (RBC) [Entitic vol] 89.3 fL Normal 82.0-98.0 [facility] Comment on above: Order Comment: No: D o not add to previous draw Performed By: #### 5 6100, 50301 #### [facility] [address] [place] [address], [facility] Monocytes (Bld) [#/Vol] 0.5 10*3/uL Normal 0.1-1.0 [facility] Comment on above: Order Comment: No: D o not add to previous draw Performed By: #### 5 6100, 62246 #### [facility] [address] [facility] [place] [address], [facility] MONOS 7.9 % Normal 5.0-12.0 [facility] Comment on above: Order Comment: No: D o not add to previous draw Performed By: #### 5 6100, 94018 #### [facility] [address] [place] [address], [facility] Neutrophils/100 WBC (Bld) 39.6 % Low 40.0-72.0 [facility] Comment on above: Order Comment: No: D o not add to previous draw Performed By: #### 5 610, 83746 #### [facility] [address] [place] [address], [place] Nucleated RBC/100 WBC (Bld) [Ratio] 0 % Normal 0-0 [facility] Comment on above: Order Comment: No: D o not add to previous draw Performed By: #### 5 610, 32698 #### [facility] [address] [place] [address], [place] PLAT CNT 236 10*3/uL Normal 150-400 [facility] Comment on above: Order Comment: No: D o not add to previous draw Performed By: #### 5 6100, 83856 #### [facility] [address] [place] [address], [place] RBC (Bld) [#/Vol] 4.22 10*6/uL Normal 3.80-5.00 [facility] Comment on above: Order Comment: No: D o not add to previous draw Performed By: #### 5 610, 03434 #### [facility] [address] [place] [address], [place] WBC (Bld) [#/Vol] 5.85 10*3/uL Normal 4.00-10.60 [facility] Comment on above: Order Comment: No: D o not add to previous draw Performed By: #### 5 610, 81133 #### [facility] [address] [place] [address], [place] POC GLUCOSE LABon 08-25-2018 Glucose [Mass/Vol] 180 mg/dL High 70-100 [facility] Comment on above: Performed By: #### 5 610, 25356 #### [facility] [address] [place] [address], [place] Glucose [Mass/Vol] 129 mg/dL High 70-100 [facility] Comment on above: Performed By: #### 5 6101, 76682 #### [facility] [address] [place] [address], [facility] Glucose [Mass/Vol] 132 mg/dL High 70-100 [facility] Comment on above: Performed By: #### 5 0608 #### [facility] [address] [place] [address], [facility] UFH HEPARIN ASSAYon 08-26-19 19 UNFRACTIONATED HEPARIN <0.10 Critically low 0.30-0.70 [facility] Comment on above: Result Comment: Betty roxaban and Apixaban will interfere with the anti Xa assay used to monitor UFH and LMWH. RESULTS CHECKED AND CALLED. ACCURATELY READ BACK BY JANENE ZAMARRIPA RN AT 0554 Performed By: #### 5 6101, 83811 #### [facility] [address] [facility] [address], [facility] BASIC METABOLIC PANELon 05- Calcium [Mass/Vol] 8.5 mg/dL Low 8.6-10.3 [facility] Comment on above: Order Comment: No: D o not add to previous draw Performed By: #### 5 0608 #### [facility] [address] [place] [address], [facility] Chloride [Moles/Vol] 104 mmol/L Normal 98-107 [facility] Comment on above: Order Comment: No: D o not add to previous draw Performed By: #### 5 0608 #### [facility] [address] [place] [address], [facility] CO2 [Moles/Vol] 27 mmol/L Normal 21-31 [facility] Comment on above: Order Comment: No: D o not add to previous draw Performed By: #### 5 0608 #### [facility] [address] [place] [address], [facility] Creatinine [Mass/Vol] 1.13 mg/dL Normal 0.60-1.20 [facility] Comment on above: Order Comment: No: D o not add to previous draw Performed By: #### 5 0608 #### [facility] [address] [place] [address], [place] GFR/1.73 sq M predicted among blacks MDRD (S/P/Bld) [Vol rate/Area] mL/min/{1.73_m2} Normal >60 [facility] Comment on above: Order Comment: No: D o not add to previous draw Performed By: #### 5 0608 #### [facility] [address] [place] [address], [place] GFR/1.73 sq M predicted among non-blacks MDRD (S/P/Bld) [Vol rate/Area] 52 ml/min/1.73sq m Abnormal >60 [facility] Comment on above: Order Comment: No: D o not add to previous draw Performed By: #### 5 0608 #### [facility] [address] [place] [address], [place] Glucose [Mass/Vol] 131 mg/dL High 70-100 [facility] Comment on above: Order Comment: No: D o not add to previous draw Performed By: #### 5 0608 #### [facility] [address] [place] [address], [place] Potassium [Moles/Vol] 3.9 mmol/L Normal 3.5-5.1 [facility] Comment on above: Order Comment: No: D o not add to previous draw Performed By: #### 5 0608 #### [facility] [address] [place] [address], [place] Sodium [Moles/Vol] 141 mmol/L Normal 136-145 [facility] Comment on above: Order Comment: No: D o not add to previous draw Performed By: #### 5 0608 #### [facility] [address] Urea nitrogen [Mass/Vol] 28 mg/dL High 7-25 [facility] Comment on above: Order Comment: No: D o not add to previous draw Performed By: #### 5 0608 #### [facility] [address] CBC COMPLETE BLOOD COUNTon - Erythrocyte distribution width (RBC) [Ratio] 13.5 % Normal 11.5-15.0 [facility] Comment on above: Order Comment: No: D o not add to previous draw Performed By: #### 5 0608 #### [facility] [address] [facility] [address] Hematocrit (Bld) [Volume fraction] 37.1 % Normal 36.0-45.0 [facility] Comment on above: Order Comment: No: D o not add to previous draw Performed By: #### 5 0608 #### [facility] [address] [facility] [address] Hemoglobin (Bld) [Mass/Vol] 12.2 g/dL Normal 12.0-15.0 [facility] Comment on above: Order Comment: No: D o not add to previous draw Performed By: #### 5 0608 #### [facility] [address] [place] [address], [facility] MCH (RBC) [Entitic mass] 28.8 pg Normal 27.0-33.0 [facility] Comment on above: Order Comment: No: D o not add to previous draw Performed By: #### 5 0608 #### [facility] [address] [place] [id number], [facility] MCHC (RBC) [Mass/Vol] 32.9 g/dL Normal 32.0-35.0 [facility] Comment on above: Order Comment: No: D o not add to previous draw Performed By: #### 5 0608 #### [facility] [address] [place] [address], [facility] MCV (RBC) [Entitic vol] 87.7 fL Normal 82.0-98.0 [facility] Comment on above: Order Comment: No: D o not add to previous draw Performed By: #### 5 0608 #### [facility] [address] [facility] [address], [facility] Nucleated RBC/100 WBC (Bld) [Ratio] 0 % Normal 0-0 [facility] Comment on above: Order Comment: No: D o not add to previous draw Performed By: #### 5 [id number] #### [facility] [address] [place] [address], [facility] PLAT CNT 251 10*3/uL Normal 150-400 [facility] [place] Comment on above: Order Comment: No: D o not add to previous draw Performed By: #### 5 [id number] #### [facility] [address] [place] [address], [facility] RBC (Bld) [#/Vol] 4.23 10*6/uL Normal 3.80-5.00 [facility] [place] Comment on above: Order Comment: No: D o not add to previous draw Performed By: #### 5 [id number] #### [facility] [address] [place] [address], [facility] WBC (Bld) [#/Vol] 8.42 10*3/uL Normal 4.00-10.60 [facility] [place] Comment on above: Order Comment: No: D o not add to previous draw Performed By: #### 5 [id number] #### [facility] [address] Cardiovascular Lab Reporton 08-24-2018 Cardiovascular Lab Report [facility] Patient Name: Sahra Sherly [facility] Amanda MR #: [id number] Department of Physician: Marshall Torres M.D. Division of Service Date: 08/23/2018 Cardiology Birthdate: 1970 Adult Cardiovascular Room #: 3AB [id number] [facility] [address] [place], [place] [address] Cardiovascular Laboratory Report FINAL IMPRESSION: 1. Mild [...] 5. Follow up with me in the [facility] post discharge. 6. Further recommendations deferred [...] the left radial artery was obtained. A 6-Iranian Glidesheath was inserted without difficulty. 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 There are luminal irregularities throughout the remainder [...] P Tk Godoy M.D. Date Dict: 08/23/2018/04:28 P/Tk Godoy M.D. Date Trans: 08/24/2018 06:37 A/yadira [id number] cc: Geovanni Brunner D.O. [address] [facility] [address] Normal [facility] [place] HIP RIGHT 1 OR 2 VWS WITH PE LVISon 08-24-2018 HIP RIGHT 1 OR 2 VWS WITH PELVIS [place] Department of Radiology [address] [place] [id number] Patient Name: SHERLY HUMPHREYS : 1970 Sex: F Age: Race: White Pt. Location: [address] [place] [address] Patient Status: D Ordered Date: 08/24/2018 12:30:00 PM Completed Date: 08/24/2018 02:52 PM Requesting Provider: PENG MERINO Attending Provider: PENG MERINO Report Copy To: Signs & Symptoms: Pain ( specify Location) History: Patient history not available Comments: R/O DJD Exam: HIP RIGHT 1 OR 2 VWS WITH PELVIS HIP RIGHT 1 OR 2 VWS WITH [...] findings. Electronically signed by:Kristy Jones. Transcribed by: [email or web address], User Resident: DL GOLDBERG Electronically Signed by: KRISTY JONES @ 08/25/2018 08:05 PM I personally read this/these film(s) with this resident Normal [facility] [place] Comment on above: Order Comment: No: D o not add to previous draw POC GLUCOSE LABon 08-24-2018 Glucose [Mass/Vol] 125 mg/dL High 70-100 [facility] [place] Comment on above: Performed By: #### 5 [id number] #### [facility] [address] [place] [address], [place] Glucose [Mass/Vol] 150 mg/dL High 70-100 [facility] [place] Comment on above: Performed By: #### 5 [id number] #### [facility] [address] [place] [address], [place] Glucose [Mass/Vol] 119 mg/dL High 70-100 [facility] [place] Comment on above: Performed By: #### 5 [id number] #### [facility] [address] [facility]. [address] UFH HEPARIN ASSAYon 08-25-19 19 UNFRACTIONATED HEPARIN <0.10 Critically low 0.30-0.70 [facility] [place] Comment on above: Result Comment: Betty roxaban and Apixaban will interfere with the anti Xa assay used to monitor UFH and LMWH. RESULTS CHECKED AND CALLED. ACCURATELY READ BACK BY JANENE ZAMARRIPA RN AT 0732 Performed By: #### 5 [id number] #### [facility] [address] APTTon 08-23-2018 aPTT Coag (Bld) [Time] 38.8 s High 25.0-35.0 Th e [place] Comment on above: Order Comment: No: D [...] THIS PURPOSE. Performed By: #### 5 [id number], [id number] #### [facility] [address] [facility]. [address] CBC COMPLETE BLOOD COUNTon 0 08-23-2018 Erythrocyte distribution width (RBC) [Ratio] 13.3 % Normal 11.5-15.0 [facility] [place] Comment on above: Order Comment: No: D o not add to previous draw Performed By: #### 5 [id number] #### [facility] [address] [facility]. [address] Hematocrit (Bld) [Volume fraction] 41.4 % Normal 36.0-45.0 [facility] [place] Comment on above: Order Comment: No: D o not add to previous draw Performed By: #### 5 [id number] #### [facility] [address] [facility] [place] [address], [facility] Hemoglobin (Bld) [Mass/Vol] 13.8 g/dL Normal 12.0-15.0 [facility] [place] Comment on above: Order Comment: No: D o not add to previous draw Performed By: #### 5 [id number] #### [facility] [address] [facility] [place] [address], [facility] MCH (RBC) [Entitic mass] 29.0 pg Normal 27.0-33.0 [facility] [place] Comment on above: Order Comment: No: D o not add to previous draw Performed By: #### 5 [id number] #### [facility] [address] [facility] [address] MCHC (RBC) [Mass/Vol] 33.3 g/dL Normal 32.0-35.0 [facility] [place] Comment on above: Order Comment: No: D o not add to previous draw Performed By: #### 5 [id number] #### [facility] [address] [facility] [place] [place] [address], [facility] MCV (RBC) [Entitic vol] 87.0 fL Normal 82.0-98.0 [facility] [place] Comment on above: Order Comment: No: D o not add to previous draw Performed By: #### 5 [id number] #### [facility] [address] [facility]. [address] Nucleated RBC/100 WBC (Bld) [Ratio] 0 % Normal 0-0 [facility] [place] Comment on above: Order Comment: No: D o not add to previous draw Performed By: #### 5 [id number] #### [facility] [address] [place] [address], [facility] PLAT CNT 293 10*3/uL Normal 150-400 [facility] [place] Comment on above: Order Comment: No: D o not add to previous draw Performed By: #### 5 [id number] #### [facility] [address] [place] [address], [facility] RBC (Bld) [#/Vol] 4.76 10*6/uL Normal 3.80-5.00 [facility] [place] Comment on above: Order Comment: No: D o not add to previous draw Performed By: #### 5 [id number] #### [facility] [address] [place] [id number], [facility] WBC (Bld) [#/Vol] 10.48 10*3/uL Normal 4.00-10.60 [facility] [place] Comment on above: Order Comment: No: D o not add to previous draw Performed By: #### 5 [id number] #### [facility] [address] [facility] [address] History and Physicalon 08-23 History and Physical MR#: [id number] [place] Pt. Name: Sherly Humphreys Admitted: 08/23/2018 Date of : 1970 Attending Physician: Nini Valente MD Room #: 3AB [id number] Discharge Date: HISTORY AND PHYSICAL CHIEF COMPLAINT: [...] she went to the emergency department in [facility]. Initial evaluation included troponin and EKG, which were negative. The patient was started on nitroglycerin patch. She experienced some relief after starting the nitroglycerin patch. Her pain went down from 8 to 6/10. Given her significant cardiac history, the patient was transferred to [facility] for further evaluation. The patient [...] with no ST-T wave changes. Troponin from [facility] was 0.01. Pending troponin in our [...] Valente MD Date Trans: 08/23/2018 06:27 Amanda/yadira [id number] Normal [facility] [place] POC GLUCOSE LABon 08-23-2018 Glucose [Mass/Vol] 101 mg/dL High 70-100 [facility] [place] Comment on above: Performed By: #### 5 [id number] #### [facility] [address] [place] [address], [facility] Glucose [Mass/Vol] 96 mg/dL Normal 70-100 [facility] [place] Comment on above: Performed By: #### 5 0608 #### [facility] [address] [facility] [address], [facility] Glucose [Mass/Vol] 134 mg/dL High 70-100 [facility] [place] Comment on above: Performed By: #### 8 [id number] #### [facility] [address] [facility] [place] [address], [facility] Glucose [Mass/Vol] 164 mg/dL High 70-100 [facility] [place] Comment on above: Performed By: #### 8 5499 #### [facility] [address] [place] [address], [facility] PROTHROMBIN TIMEon 9 INR Coag (PPP) [Relative time] 1.06 {INR} Normal 0.91-1.16 [facility] [place] Comment on above: Order Comment: No: D o not add to previous draw Result Comment: ACCC P RECOMMENDED INR FOR WARFARIN THERAPY --------- ------- CONDITION INR PROPHYLAXIS OF VENOUS THROMBOSIS 2-3 (HIGH-RISK SURGERY) TREATMENT OF VENOUS THROMBOSIS 2-3 TREATMENT OF PULMONARY EMBOLISM 2-3 PREVENTION OF SYSTEMIC EMBOLISM: 2-3 ACUTE MYOCARDIAL INFARCTION TISSUE HEART VALVES VALVULAR HEART DISEASE ATRIAL FIBRILLATION RECURRENT SYSTEMIC EMBOLISM MECHANICAL HEART VALVE 2.5-3.5 FROM: ORAL ANTICOAGULANTS. MECHANISM OF ACTION, CLINICAL EFFECTIVENESS, AND OPTIMAL THERAPEUTIC RANGE. CHEST 1995;108:231S-246S. Performed By: #### 5 6101, 65923 #### [facility] [address] [place] [address], [facility] PT Coag (PPP) [Time] 13.8 s Normal 12.3-14.8 [facility] [place] Comment on above: Order Comment: No: D o not add to previous draw Result Comment: ALL RESULTS MUST BE INTERPRETED WITH RESPECT TO BLOOD DRAWING ARTIFACT OR DILUTION ERROR OF ANTICOAGULANT AT THE TIME OF SAMPLING. Performed By: #### 5 6101, 79941 #### [facility] [address] [place] [address], [facility] SERUM TESTon 08-23 TEST Negative Normal [facility] [place] Comment on above: Order Comment: Yes: Add to Previous draw if able Performed By: #### 4 6473 #### [facility] [address] [place] [address], [facility] TROPONIN-Ion 08-23-2018 Troponin I.cardiac [Mass/Vol] 0.01 ng/mL Normal 0.00-0.04 [facility] [place] Comment on above: Order Comment: No: D o not add to previous draw Result Comment: REFE RENCE RANGES: 0.00 - 0.04 ng/ml NORMAL 0.05 - 0.50 ng/ml INDETERMINATE > 0.50 ng/ml CONSISTENT WITH AN M.I. Performed By: #### 3 5200 #### [address] UFH HEPARIN ASSAYon 08-24-19 19 UNFRACTIONATED HEPARIN 0.42 IU/mL Normal 0.30-0.70 Th [facility] Comment on above: Order Comment: per beatriz schneider Result Comment: Cameron roxaban and Apixaban will interfere with the anti Xa assay used to monitor UFH and LMWH. Performed By: #### 3 0477 #### [address] UNFRACTIONATED HEPARIN 0.29 IU/mL Low 0.30-0.70 Th [facility] [place] Comment on above: Result Comment: Betty roxaban and Apixaban will interfere with the anti Xa assay used to monitor UFH and LMWH. Performed By: #### 3 0477 #### [address] US GALLBLADDERon 08-23-2018 US GALLBLADDER [place] Department of Radiology [address] [place] [id number] Patient Name: SHERLY HUMPHREYS : 1970 Sex: F Age: Race: White Pt. Location: [address] [place] [address] Patient Status: I Ordered Date: 08/23/2018 11:30:00 AM Completed Date: 08/23/2018 01:41 PM Requesting Provider: PENG MERINO Attending Provider: PENG MERINO Report Copy To: Signs & Symptoms: RUQ/Abdominal Pain History: Patient history not available Comments: R/O Biliary Disease Exam: US GALLBLADDER US GALLBLADDER 08/23/2018 1:41 PM EDT SIGNS [...] gallbladder. Electronically signed by:Nathan Mauricio. Transcribed by: [email or web address], User Resident: Electronically Signed by: NATHAN MAURICIO @ 08/23/2018 03:33 PM Normal [facility] [place] Comment on above: Order Comment: No: D o not add to previous draw Vital Signs Date Time Vital Sign Value Performing Clinician Facility 10-16-2023 13:05040 Body height 162.56 cm Janene Lew Work Phone: [facility] 10-16-2023 13:05040 Body mass index (BMI) [Ratio] 51.5 kg/m2 Janene Lew Work Phone: [facility] 10-16-2023 13:05040 Body temperature 97.3 [degF] Janene Lew Work Phone: [facility] 10-16-2023 13:05-0400 Body weight 136.3 kg Janene Aichholz Work Phone: [facility] 10-16-2023 13:05-0400 Diastolic blood pressure 76 mm[Hg] Janene Aichholz Work Phone: [facility] 10-16-2023 13:05-0400 Heart rate 69 /min Janene Aichholz Work Phone: [facility] 10-16-2023 13:05-0400 Respiratory rate 18 /min Janene Aichholz Work Phone: [facility] 10-16-2023 13:05-0400 SaO2% (BldA) [Mass fraction] 99 % Janene Aichholz Work Phone: [facility] 10-16-2023 13:05-0400 Systolic blood pressure 125 mm[Hg] Janene Aichholz Work Phone: [facility] 10-02-2023 08:00-0400 Body temperature 97.9 [degF] Janene Aichholz Work Phone: [facility] 10-02-2023 08:00-0400 Diastolic blood pressure 82 mm[Hg] Janene Aichholz Work Phone: [facility] 10-02-2023 08:00-0400 Heart rate 58 /min Janene Aichholz Work Phone: [facility] 10-02-2023 08:00-0400 Respiratory rate 16 /min Janene Aichholz Work Phone: [facility] 10-02-2023 08:00-0400 SaO2% (BldA) [Mass fraction] 100 % Janene Aichholz Work Phone: [facility] 10-02-2023 08:00-0400 Systolic blood pressure 138 mm[Hg] Janene Aichholz Work Phone: [facility] 10-02-2023 05:02-0400 Body weight 139.8 kg Janene Aichholz Work Phone: [facility] 10-01-2023 05:34-0400 Body height 162.56 cm Janene Aichholz Work Phone: [facility] 08-15-2023 10:02-0400 Body height 162.56 cm Janene Aichholz Work Phone: [facility] 08-15-2023 10:02-0400 Body mass index (BMI) [Ratio] 54.6 kg/m2 Janene Aichholz Work Phone: [facility] 08-15-2023 10:02-0400 Body temperature 96.9 [degF] Janene Aichholz Work Phone: [facility] 08-15-2023 10:02-0400 Body weight 144.24 kg Janene Aichholz Work Phone: [facility] 08-15-2023 10:02-0400 Diastolic blood pressure 77 mm[Hg] Janene Aichholz Work Phone: [facility] 08-15-2023 10:02-0400 Heart rate 59 /min Janene Aichholz Work Phone: [facility] 08-15-2023 10:02-0400 Respiratory rate 18 /min Janene Aichholz Work Phone: [facility] 08-15-2023 10:02-0400 SaO2% (BldA) [Mass fraction] 98 % Janene Aichholz Work Phone: [facility] 08-15-2023 10:02-0400 Systolic blood pressure 130 mm[Hg] Janene Aichholz Work Phone: [facility] 08-14-2022 10:15-0400 Body height 162.56 cm Ivan Sams Other [facility] Other 08-14-2022 10:15-0400 Body mass index (BMI) [Ratio] 51.63 kg/m2 Ivan Sams Other [facility] Other 08-14-2022 10:15-0400 Body weight 136.44 kg Ivan Sams Other [facility] Other 08-14-2022 10:15-0400 Diastolic blood pressure 80 mm[Hg] Ivan Sams Other [facility] Other 08-14-2022 10:15-0400 SaO2% (BldA) [Mass fraction] 99 % Ivan Sams Other [facility] Other 08-14-2022 10:15-0400 Systolic blood pressure 140 mm[Hg] Ivan Sams Other [facility] Other 07-03-2022 12:30-0400 Body height 162.56 cm Ivan Sams Other [facility] Other 07-03-2022 12:30-0400 Body mass index (BMI) [Ratio] 51.39 kg/m2 Ivan Sams Other [facility] Other 07-03-2022 12:30-0400 Body weight 135.81 kg Ivan Sams Other [facility] Other 07-03-2022 12:30-0400 Diastolic blood pressure 84 mm[Hg] Ivan Sams Other [facility] Other 07-03-2022 12:30-0400 SaO2% (BldA) [Mass fraction] 99 % Ivan Sams Other [facility] [employer] Other 07-03-2022 12:30-0400 Systolic blood pressure 142 mm[Hg] Ivan Sams Other [facility] [employer] Other 06-24-2022 15:59-0500 Body height 162.56 cm Janene Aichholz Work Phone: [facility] 06-24-2022 15:59-0500 Body temperature 98.2 [degF] Janene Aichholz Work Phone: [facility] 06-24-2022 15:59-0500 Body weight 134.4 kg Janene Aichholz Work Phone: [facility] 06-24-2022 15:59-0500 Diastolic blood pressure 95 mm[Hg] Janene Aichholz Work Phone: [facility] 06-24-2022 15:59-0500 Heart rate 94 /min Janene Aichholz Work Phone: [facility] 06-24-2022 15:59-0500 Respiratory rate 20 /min Janene Aichholz Work Phone: [facility] 06-24-2022 15:59-0500 SaO2% (BldA) [Mass fraction] 96 % Janene Aichholz Work Phone: [facility] 06-24-2022 15:59-0500 Systolic blood pressure 187 mm[Hg] Janene Aichholz Work Phone: [facility] 05-12-2022 12:00-0500 Body height 162.56 cm Christian Mckenzie Other [facility] [employer] Other 05-12-2022 12:00-0500 Body mass index (BMI) [Ratio] 51.94 kg/m2 Christian Mckenzie Other [facility] Other 05-12-2022 12:00-0500 Body weight 137.26 kg Christian Mckenzie Other [facility] Other 04-25-2022 12:20-0500 Body height 162.56 cm Azaurelia Webers Other [facility] Other 04-25-2022 12:20-0500 Body mass index (BMI) [Ratio] 51.94 kg/m2 Aziz Bakhous Other [facility] Other 04-25-2022 12:20-0500 Body temperature 97.5 [degF] Aziz Bakhous Other [facility] Other 04-25-2022 12:20-0500 Body weight 137.26 kg Aziz Bakhous Other [facility] Other 04-25-2022 12:20-0500 Diastolic blood pressure 80 mm[Hg] Aziz Bakhous Other [facility] Other 04-25-2022 12:20-0500 Respiratory rate 18 /min Aziz Bakhous Other [facility] Other 04-25-2022 12:20-0500 SaO2% (BldA) [Mass fraction] 97 % Aziz Bakhous Other [facility] Other 04-25-2022 12:20-0500 Systolic blood pressure 140 mm[Hg] Aziz Bakhous Other [facility] Other 01-25-2022 16:15-0400 Body height 162.56 cm Emma Bolivar Other [facility] Other 01-25-2022 16:15-0400 Body mass index (BMI) [Ratio] 52.78 kg/m2 Emma Bolivar Other [facility] Other 01-25-2022 16:15-0400 Body temperature 97.1 [degF] Emma Bolivar Other [facility] Other 01-25-2022 16:15-0400 Body weight 139.48 kg Emma Bolivar Other [facility] Other 01-25-2022 16:15-0400 Diastolic blood pressure 70 mm[Hg] Emma Bolivar Other [facility] Other 01-25-2022 16:15-0400 SaO2% (BldA) [Mass fraction] 98 % Emma Bolivar Other [facility] Other 01-25-2022 16:15-0400 Systolic blood pressure 142 mm[Hg] Emma Bolivar Other [facility] Other 12-06-2021 12:20-0400 Body height 162.56 cm Christian Mckenzie Other [facility] Other 12-06-2021 12:20-0400 Body mass index (BMI) [Ratio] 46.34 kg/m2 Christian Mckenzie Other [facility] Other 12-06-2021 12:20-0400 Body weight 122.47 kg Christian Mckenzie Other [facility] Other 11-10-2021 16:20-0400 Body height 162.56 cm Christian Mckenzie Other [facility] Other 11-10-2021 16:20-0400 Body mass index (BMI) [Ratio] 46.34 kg/m2 Christian Mckenzie Other [facility] Other 11-10-2021 16:20-0400 Body weight 122.47 kg Christian Mckenzie Other [facility] Other 09-29-2021 14:00-0400 Body height 162.56 cm Christian Mckenzie Other [facility] Other 09-29-2021 14:00-0400 Body mass index (BMI) [Ratio] 46 kg/m2 Christian Mckenzie Other [facility] Other 09-29-2021 14:00-0400 Body weight 121.56 kg Christian Mckenzie Other [facility] Other 08-30-2021 15:40-0400 Body height 162.56 cm Christian Mckenzie Other [facility] Other 08-30-2021 15:40-0400 Body mass index (BMI) [Ratio] 46 kg/m2 Christian Mckenzie Other [facility] Other 08-30-2021 15:40-0400 Body weight 121.56 kg Christian Mckenzie Other [facility] Other Encounters Encounter Date Encounter Type Care Provider Facility Start: 10-16-2023 End: 10-16-2023 ambulatory Janene Lew Work Phone: [facility] Work Phone: Start: 10-16-2023 End: 10-16-2023 Patient encounter procedure Janene Jonesangiegabo Work Phone: [facility] Work Phone: Start: 10-16-2023 Registered Recurring Janene espitia Work Phone: [facility] Start: 10-16-2023 ambulatory Valdemar Ruff acility:[facility] Start: 10-11-2023 End: 10-11-2023 Patient encounter procedure Janene Lew Work Phone: [facility] [place] Work Phone: Start: 10-11-2023 End: 10-11-2023 ambulatory Janene Jonesjeremiah Work Phone: [facility] Work Phone: Start: 10-01-2023 Non-patient / Non-visit Janene field Work Phone: [facility] Work Phone: Start: 10-01-2023 End: 10-02-2023 Evaluation and management of inpatient Janene Lew Work Phone: [facility] Work Phone: Start: 09-24-2023 End: 09-24-2023 ambulatory Elza Conway MD Facility:[facility] Start: 09-20-2023 End: 09-20-2023 ambulatory SHAIKH TYLER Not Available Start: 09-14-2023 End: 09-14-2023 ambulatory BAN UMANZOR V Not Available Start: 09-13-2023 End: 09-13-2023 ambulatory JANENE JONESJEREMIAH Not Available Start: 09-11-2023 End: 09-11-2023 ambulatory AB [facility] Start: 09-03-2023 Registered Recurring Janene Jones jeremiah Work Phone: [facility] Start: 08-15-2023 End: 08-15-2023 Patient encounter procedure Janene Emiz Work Phone: [facility] Work Phone: Start: 08-10-2023 End: 08-10-2023 Patient encounter procedure Janene Emiz Work Phone: [facility] [place] Work Phone: Start: 08-10-2023 End: 08-10-2023 ambulatory Janene J Reddhholz Work Phone: [facility] Work Phone: Start: 07-09-2023 End: 07-09-2023 ambulatory Elza Conway MD Facility:[facility] Start: 07-03-2023 End: 07-03-2023 ambulatory JESSICA GASPAR Not Available Start: 07-02-2023 End: 07-02-2023 ambulatory JANENE EMIZ Not Available Start: 06-26-2023 End: 06-26-2023 ambulatory BAN UMANZOR V Not Available Start: 06-19-2023 End: 06-19-2023 Patient encounter procedure Janene Emiz Work Phone: [facility] [place] Work Phone: Start: 06-19-2023 End: 06-19-2023 ambulatory BAN UMANZOR V Not Available Start: 05-25-2023 End: 05-25-2023 ambulatory SONIA HAQ Facility:[facility] Start: 05-17-2023 End: 05-17-2023 Patient encounter procedure Janene Emiz Work Phone: [facility] [place] Work Phone: Start: 05-17-2023 End: 05-17-2023 ambulatory Janene J Reddhholz Work Phone: [facility] Work Phone: Start: 05-03-2023 End: 05-03-2023 ambulatory JANENE LEW Not Available Start: 03-15-2023 Registered Recurring Janene espitia Work Phone: [facility] Start: 03-14-2023 End: 03-14-20[facility] Start: 02-19-2023 End: 02-19-2023 ambulatory Elza Conway MD Facility:[facility] Start: 01-01-2023 End: 01-01-2023 ambulatory Elza Conway MD Facility:[facility] Start: 11-30-2022 End: 11-30-2022 ambulatory BRIANATimmy HARPREETBANNERBOBBI [place] Start: 11-29-2022 End: 11-29-2022 ambulatory Halle Mac Other [facility] Other Start: 11-29-2022 Telephone encounter Azaurelia Webers [facility] Start: 09-18-2022 End: 09-18-2022 ambulatory Ivan Latrell Other [facility] Other Start: 09-18-2022 Telephone encounter Ivan Latrell [facility] Start: 09-07-2022 End: 09-07-2022 ambulatory WASHING MACHINE MECHANIC JANENE LEW Facility: Start: 08-14-2022 End: 08-14-2022 ambulatory Ivan Latrell Other [facility] Other Start: 08-14-2022 Office outpatient vi sit 25 minutes Ivan Latrell [facility] Start: 07-03-2022 End: 07-03-2022 ambulatory Ivan Latrell Other [facility] Other Start: 07-03-2022 Office consultation new/estab patient 60 min Ivan Latrell [facility] Start: 06-24-2022 End: 06-24-2022 Emergency department patient visit Janene Lew Work Phone: [facility] Work Phone: Start: 06-08-2022 End: 06-09-2022 ambulatory AGUSTINA LEW Facility:H1 Start: 05-29-2022 End: 05-30-2022 ambulatory AGUSTINA LEW Facility:H1 Start: 05-13-2022 ambulatory WASHING MACHINE MECHANIC JANENE LEW Facil ity:H1 Start: 05-12-2022 End: 05-12-2022 ambulatory Christian Mckenzie Other [facility] Other Start: 05-12-2022 Office outpatient vi sit 15 minutes Christian Mckenzie [facility] Start: 04-25-2022 End: 04-25-2022 ambulatory Aziz Tias Other [facility] Other Start: 04-25-2022 Office outpatient ne w 30 minutes Aziz Bakhous [facility] Start: 03-29-2022 End: 03-30-2022 ambulatory AGUSTINA LEW Facility:H1 Start: 03-23-2022 End: 03-24-2022 ambulatory AGUSTINA LEW Facility:[facility]1 Start: 02-19-2022 End: 02-19-2022 ambulatory AGUSTINA LEW Facility:H1 Start: 02-16-2022 End: 02-16-[address] MYRIAM PERRIN . Facility:[facility]1 Start: 02-15-2022 ambulatory AGUSTINA LEW Facil ity:H1 Start: 01-25-2022 End: 01-25-2022 Patient encounter procedure Janene Lew Work Phone: [facility] Start: 01-25-2022 End: 01-25-2022 ambulatory Janene Lew Work Phone: [facility] Work Phone: Start: 01-25-2022 Office outpatient vi sit 25 minutes Emma Bolivar [facility] Start: 01-25-2022 End: 01-26-2022 ambulatory WASHING MACHINE MECHANIC JANENE AICHHOLZ Facility:H1 Start: 01-23-2022 End: 01-24-2022 ambulatory WASHING MACHINE MECHANIC JANENE AICHHOLZ Facility:H1 Start: 01-12-2022 End: 01-13-2022 ambulatory WASHING MACHINE MECHANIC JANENE AICHHOLZ Facility:H1 Start: 12-21-2021 End: 12-22-2021 ambulatory WASHING MACHINE MECHANIC JANENE AICHHOLZ Facility:H1 Start: 12-06-2021 End: 12-06-2021 ambulatory Christian Mckenzie [facility] Other Start: 12-06-2021 Office outpatient vi sit 15 minutes Christian Mckenzie [facility] Start: 11-30-2021 End: 11-30-2021 ambulatory WASHING MACHINE MECHANIC JANENE AICHHOLZ Facility:H1 Start: 11-28-2021 End: 11-29-2021 ambulatory WASHING MACHINE MECHANIC JANENE AICTimmyHOLZ Facility:H1 Start: 11-14-2021 End: 11-14-2021 ambulatory Janene J Reddhholz Work Phone: [facility] Work Phone: Start: 11-14-2021 End: 11-14-2021 Discharged Recurring Janene Jonesholz Work Phone: [facility] [place] Start: 11-10-2021 End: 11-10-2021 ambulatory Christiansánchez Mckenzie [facility] Other Start: 11-10-2021 Postop follow up vis it related to original px Christian Mckenzie [facility] Start: 10-28-2021 End: 10-29-2021 ambulatory WASHING MACHINE MECHANIC JANENE AICHHOLZ Facility:H1 Start: 10-02-2021 End: 10-02-2021 ambulatory WASHING MACHINE MECHANIC JANENE AICHHOLZ Facility:H1 Start: 09-29-2021 End: 09-29-2021 ambulatory Christian Mckenzie [facility] Other Start: 09-29-2021 Postop follow up vis it related to original px Christian Mckenzie [facility] Start: 08-30-2021 End: 08-30-2021 ambulatory Christian Mckenzie [facility] Other Start: 08-30-2021 Postop follow up vis it related to original px Christian Mckenzie [facility] Start: 08-12-2021 Admission to [facility] Christian Mckenzie [facility] Start: 08-12-2021 End: 08-12-2021 ambulatory Christian Mckenzie Other [facility] Other Start: 08-23-2018 End: 08-25-2018 Evaluation and management of inpatient Peng Merino Facility:[facility] Procedures Date Procedure Procedure Detail Performing Clinician Start: 05-17-2023 Urine culture Janene espitia Work Phone: Start: 08-23-2018 FLUOROSCOPY OF MULTI PLE CORONARY ARTERIES USING OTH CONTRAST EHAB Amanda MORRELLTACHEN History of percutane ous transluminal coronary angioplasty History of PTCA Janene Lew Work Phone: Plan of Treatment Date Care Activity Detail Author Start: 10-02-2023 [facility] Start: 10-01-2023 Referral to glass crusher [facility] Start: 10-01-2023 Hospital admission [facility] Start: 05-17-2023 Bacteria identified in Urine by Culture [facility] Patient Education [facility] Work Phone: Patient referral [facility] Work Phone: Renal function 1999 panel - Serum or Plasma [facility] Renal function 1999 panel - Serum or Plasma [facility] Immunizations Immunization Date Immunization Notes Care Provider Fa cility 05-17-2021 COVID-19 mRNA, Comirnaty (Pfizer) Janene Lew Work Phone: [facility] 09-06-2020 COVID-19 mRNA, Comirnaty (Pfizer) Janene Aichholz Work Phone: [facility] 08-16-2020 COVID-19 mRNA, Comirnaty (Pfizer) Janene Aichholz Work Phone: [facility] 01-31-2019 influenza, injectabl e, quadrivalent, preservative free Janene Aichholz Work Phone: [facility] 01-31-2019 influenza, injectabl e, quadrivalent, contains preservative Christian Mckenzie [facility] Other 03-15-2018 influenza, injectabl e, quadrivalent, preservative free Janene Aichholz Work Phone: [facility] 03-15-2018 influenza, injectabl e, quadrivalent, contains preservative Christian Mckenzie [facility] Other Payers Date Payer Category Payer Private Health Insurance [id number] 2023 Unknown [id number] 2022 Self-pay [id number] 2022 Medicaid [id number] 2.16.840.1.928127.19 2022 Private Health Insurance [id number] 16.840.1.674996.19 2022 Private Health Insurance 2022 Unknown 2010 Self-pay [id number] 1970 Unknown [id number] 2.16.840.1.674639.3.579.2.64 7 1970 Unknown [id number] 2.16.840.1.508085.3.579.2.59 3 1970 Unknown [id number] 2.16.840.1.791454.3.579.2.59 3 1970 Unknown [id number] 2.16.840.1.386686.3.579.2.59 3 1970 Unknown [id number] 2.16.840.1.371900.3.579.2.59 3 1970 Unknown [id number] 2.16.840.1.508246.3.579.2.59 3 1970 Unknown [id number] 2.16.840.1.126031.3.579.2.59 3 1970 Unknown [id number] 2.16.840.1.849942.3.579.2.59 3 1970 Unknown [id number] 2.16.840.1.580978.3.579.2.59 3 1970 Unknown [id number] 2.16.840.1.565865.3.579.2.59 3 1970 Unknown [id number] 2.16.840.1.021314.3.579.2.59 3 1970 Unknown [id number] 2.16.840.1.911302.3.579.2.59 3 1970 Unknown [id number] 2.16.840.1.947308.3.579.2.59 3 1970 Unknown [id number] 2.16.840.1.369900.3.579.2.59 3 1970 Unknown [id number] 2.16.840.1.766654.3.579.2.59 3 1970 Unknown [id number] 2.16.840.1.415944.3.579.2.59 3 1970 Unknown [id number] 2.16.840.1.270083.3.579.2.59 3 1970 Unknown [id number] 2.16.840.1.117562.3.579.2.59 3 1970 Unknown [id number] 2.16.840.1.519581.3.579.2.71 8 1970 Unknown [id number] 2.16.840.1.807353.3.579.2.12 1970 Unknown [id number] 2.16.840.1.487727.3.579.2.12 1970 Unknown [id number] 2.16.840.1.359884.3.579.2.12 1970 Unknown [id number] 2.16.840.1.682701.3.579.2.12 1970 Unknown [id number] 2.16.840.1.739613.3.579.2.12 1970 Unknown [id number] 2.16.840.1.431876.3.579.2.12 1970 Unknown [id number] 2.16.840.1.171852.3.579.2.12 1970 Unknown [id number] 2.16.840.1.587631.3.579.2.12 1970 Unknown [id number] 2.16.840.1.031770.3.579.2.12 1970 Unknown [id number] 2.16.840.1.228554.3.579.2.12 1970 Unknown [id number] 2.16.840.1.796382.3.579.2.19 6 1970 Unknown [id number] 2.16.840.1.834456.3.579.2.19 6 1970 Unknown [id number] 2.16.840.1.188698.3.579.2.19 6 1970 Unknown [id number] 2.16.840.1.331307.3.579.2.19 6 1959 Private Health Insurance [id number] 2.16.840.1.305238.19 1959 Unknown [id number] 2.16.840.1.172693.19 Medicaid Anthem [place] Medicaid [id number] Unknown [place] BC/BS [id number] Unknown [id number] 2.16.840.1.059169.3.579.2.53 1 Unknown [id number] 2.16.840.1.535110.3.579.2.53 1 Unknown [id number] 2.16.840.1.320088.3.579.2.53 1 Unknown [id number] 2.16.840.1.765305.3.579.2.53 1 Unknown [id number] 2.16.840.1.990121.3.579.2.53 1 Unknown [id number] 2.16.840.1.932811.3.579.2.53 1 Social History Date Type Detail Facility Unknown if ever smoked [facility] Other Sex Assigned At Sex Assigned At Bir th [facility] Other Start: 08-12-2021 End: 10-01-2023 Tobacco smoking status NHIS Never smoked tobacco (finding) [facility] Start: 1970 Sex Assigned At Female F [facility] Goals Date Patient Goal Desired Activity /State Functional Status Date Assessment Result Facility 10-02-2023 Functional status Patient at Baseline [facility] Work Phone: Mental Status Date Assessment Result Facility 10-02-2023 Cognitive function Cognitive Sta tus Patient at Baseline [facility] Work Phone: Clinical Notes 08-30-2021 to 09-11-2023 Note Date & Type Note Facility 09-11-2023 Note [facility] Cardiology Clinic Note Chief Complaint: Patient [...] HEAD: atraumatic, normocephal (more content not included)... [place] 03-14-2023 Note [facility] Cardiology Clinic Note Chief Complaint: Patient here for 3 mo follow up CAD, hypertension, and diastolic heart failure. She was switched from lisinopril to Entresto at last visit in Nov 2022 by Jonathan Small CNP. Spironolactone was also added. BMP done [...] Denies chest pain and palpitations. Went to [employer] recently and had to sit down in [...] right ventricular systo (more content not included)... [place] 11-30-2022 Note Cardiology Clinic No sergei Pete Sherly Humphreys is a 51 y.o. year [...] diastolic heart failure (CMS/HCC) Coronary arteriosclerosis in [place] artery Coronary atherosclerosis Dehydration Bipolar disorder (CMS/HCC) [...] 19, serum creati (more content not included)... [place] 08-14-2022 Evaluation note Encounter Date Diagnosis Assessment [...] - G89.29) Proceed with current treatment plan [facility] Other 03-20-2023 Evaluation note* Encounter Date Diagnosis [...] negative findings were considered in medical decision-making. [facility] Other 03-11-2023 Hospital Discharge instructions Additional Instructions [...] control high fever or any other [facility] Work Phone: [phone] Evaluation note* Encounter Date Diagnosis Assessment Notes [...] [facility] 01-10-2023 Evaluation note* Encounter Date Diagnosis [...] obesity (ICD-10 - E66.01) Encouraged weight loss [facility] Other 10-12-2022 Evaluation note* Encounter Date Diagnosis [...] strap. A prescription was sent to the [employer] for new supplies throughout the year, as [...] sleepiness, or poor response to treatment. . [facility] Other 08-23-2022 Evaluation note* Encounter Date Diagnosis [...] of thoracolumbar intervertebral disc (ICD-10 - M51.25) [facility] Other 07-28-2022 Evaluation note* Encounter Date Diagnosis [...] a med check and PT follow up [facility] Other 06-16-2022 Evaluation note* Encounter Date Diagnosis [...] labor Sep, Thoracic myelopathy (ICD-10 - M47.14) [facility] Other 05-17-2022 Evaluation note* Encounter Date Diagnosis [...] Overall she is making a good recovery [facility] Other evaluation [facility]No [facility] Other evalbeyzdx noteNo assessment information available [facility] Work Phone: Evaluation note* Diagnosis Onset Date Resolution Status 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 acute Hyperuricemia acute Hypomagnesemia acute Iron deficiency acute Localized edema acute Morbid obesity acute Stage 3b chronic kidney disease acute Vitamin B12 deficiency acute Vitamin D deficiency acute Hypertensive nephropathy res olved Acute kidney injury superimposed on CKD acute 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 acute Anemia of renal disease reso lved Hypertensive nephropathy res olved [facility] Work Phone: Evaluation note* Diagnosis Onset Date Resolution Status 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 acute Hyperuricemia acute Hypomagnesemia acute Iron deficiency acute Localized edema acute Morbid obesity acute Stage 3b chronic kidney disease acute Vitamin B12 deficiency acute Vitamin D deficiency acute Hypertensive nephropathy res olved Acute kidney injury superimposed on CKD acute 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 acute Anemia of renal disease reso lved Hypertensive nephropathy res olved 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 acute Hyperkalemia acute Hyperuricemia acute Hypomagnesemia acute Iron deficiency acute Localized edema acute Morbid obesity acute Stage 3b chronic kidney disease acute Vitamin B12 deficiency acute Vitamin D deficiency acute Hypertensive nephropathy res [facility] Work Phone: Hissvzq general Narrative - Reported* Type Description Date [...] History Tonsilectomy Teenager Hospitalization History See Above [facility] Other Hisprow general Narrative - Reported* Type Description Date [...] BACK SURGERY 07/2021 Hospitalization History See Above [facility] Other Summary Purpose Family History No Family History Records Found Relationship Condition Age at Onset Recorded Date/T antony Not Specified Malignant neoplasm of head and neck Unkn own Diabetes mellitus Unknown Myocardial infarction Unknown sister Diabetes mellitus Unknown father Myocardial infarction Unknown brother Myocardial infarction Unknown Relationship Condition Age at Onset Recorded Date/T antony Not Specified Malignant neoplasm of head and neck Unkn own Diabetes mellitus Unknown Myocardial infarction Unknown sister Diabetes mellitus Unknown father Myocardial infarction Unknown brother Myocardial infarction Unknown brother Family history of mental disorder Unknown Hypertension Unknown father Heart disease Unknown Family history of mental disorder Unknown Unknown Not Specified Hypertension Unknown History of stroke Unknown Malignant neoplasm Unknown sister Family history of mental disorder Unknown Relationship Condition Age at Onset Recorded Date/T antony mother Malignant neoplasm of head and neck Unkno wn Diabetes mellitus Unknown Myocardial infarction Unknown sister Diabetes mellitus Unknown father Myocardial infarction Unknown brother Myocardial infarction Unknown brother Family history of mental disorder Unknown Hypertension Unknown father Heart disease Unknown Family history of mental disorder Unknown Unknown mother Hypertension Unknown History of stroke Unknown Malignant neoplasm Unknown sister Family history of mental disorder Unknown Advance Directives No Advanced Directives Records Found Advance Directive Response Recorded Date/ Time Advance Directives No March 19, 2018 5:43pm Advance Directive Response Recorded Date/ Time Advance Directives No March 19, 2018 4:43pm Hospital Course Note MR#: [id number] [facility] Pt. Name: Sherly Humphreys Admitted: 08/23/2018 [...] Diagnosis 1 Thoracic myelopathy (M47.14) [facility]erral [facility] Referring Provider First Name Christian Referring Provider Last Name Alfonso Referring Provider Specialty Neurologica l Surgery Referred Organization [facility] Pain Managemen t Referred Provider Ivan Sams Referred Address [address] [address] ,[place], [place],[address] Referred Provider Specialty Pain Medicin e Referral Priority Routine [facility] 12:45[facility]54 PM >Received today and sent P2P Kristal Veloz 05/16/2022 02:01:28 PM >pt has been scheduled [facility]02[facility]22 [facility] 09:01:37 AM >Patient was a no show to her appt [facility] 06/13/2022 11:23:40 AM >Telephone encounter was sent Reason Evaluate and Treat B ilateral Low Back Pain Diagnosis 1 Low back pain (M54.5 ) Referral Organization [facility] Referring Provider First Name Christian Referring Provider Last Name Alfonso Referring Provider Specialty Neurologica l Surgery Referred Organization Unknown Facility Referred Provider Specialty Physical The rapist Referral Priority Routine Chief Complaint and Reason for Visit Chief Complaint low back pain Chief Complaint low back pain Sleep apnea 31-90 day follow up Chief Complaint rt leg pain Chief Complaint BH Z79.899 bipolar disorder N18.32 I12.9 E11.21 Chief Complaint Z79.899 bipolar diso rder N18.32 I12.9 E11.21 bipolar i12.9 n18.32 e11.21 r60.0 e66.01 Chief Complaint i12.9 n18.32 e11.21 r60.0 e66.01 RENAL 6 MONTH F/U Acute Renal Failure Acute Renal Failure N17.9 N18.9 Reason for Visit Diabetic nephropathy associated with type 2 diabetes mellitus Hyperuricemia Hypomagnesemia Iron deficiency Localized edema Morbid obesity Stage 3b chronic kidney disease Vitamin B12 deficiency Vitamin D deficiency Hypertensive nephropathy Acute kidney injury superimposed on CKD Diabetic nephropathy associated with type 2 diabetes mellitus Anemia of renal disease Hypertensive nephropathy Chief Complaint i12.9 n18.32 e11.21 r60.0 e66.01 RENAL 6 MONTH F/U Acute Renal Failure Acute Renal Failure N17.9 N18.9 F/U HOSPITAL RENAL Reason for Visit Diabetic nephropathy associated with type 2 diabetes mellitus Hyperuricemia Hypomagnesemia Iron deficiency Localized edema Morbid obesity Stage 3b chronic kidney disease Vitamin B12 deficiency Vitamin D deficiency Hypertensive nephropathy Acute kidney injury superimposed on CKD Diabetic nephropathy associated with type 2 diabetes mellitus Anemia of renal disease Hypertensive nephropathy Diabetic nephropathy associated with type 2 diabetes mellitus Hyperkalemia Hyperuricemia Hypomagnesemia Iron deficiency Localized edema Morbid obesity Stage 3b chronic kidney disease Vitamin B12 deficiency Vitamin D deficiency Hypertensive nephropathy Additional Source Comments INFORMATION SOURCE (unrecogn ized section and content) DATE CREATED AUTHOR 11/22/2018 [facility] DATE CREATED AUTHOR AUTHOR'S ORGANIZ ATION 09/22/2022 [facility] DATE CREATED AUTHOR AUTHOR'S ORGANIZ ATION 05/26/2023 [facility] DATE CREATED AUTHOR AUTHOR'S ORGANIZ ATION 09/22/2023 [facility] EPIC DATE CREATED AUTHOR AUTHOR'S ORGANIZ ATION 10/04/2023 [facility] DATE CREATED AUTHOR AUTHOR'S ORGANIZ ATION 10/07/2023 [facility] DATE CREATED AUTHOR AUTHOR'S ORGANIZ ATION 10/16/2023 [facility] REASON FOR VISIT (unrecogniz ed section and content) [id number] WK PO DISC [id number] wk po Discectomy3 [...] Status: Inactive Member Role Status Dates Janene Lopes Reddtimmyjeremiah Primary Care Provider Active Sta rt: June 19, 2023 End: June 19, 2023 Fauzia Huffman MD Attending Provider Active St art: June 19, 2023 End: June 19, 2023 Team Status: Inactive Member Role Status Dates Janene Moses Lew Primary Care Provider Active Sta rt: August 10, 2023 End: August 10, 2023 Halle Mac MD Attending Provider Active Star t: August 10, 2023 End: August 10, 2023 Team Status: Active Member Role Status Dates Janene Lew Primary Care Provider Active Sta rt: March 15, 2023 Valdemar Alonso MD Attending Provider Active Start: March 15, 2023 Team Status: Inactive Member Role Status Dates Janene Moses Lew Primary Care Provider Active Christian Mckenzie MD Attending Provider Active Team Status: Inactive Member Role Status Dates Janeneamanda Lew Primary Care Provider Active Emma Bolivar NP Attending Provider Active Team Status: Inactive Member Role Status Dates Janene Lew Primary Care Provider Active Merissa Hernandez [facility]- Emergency Provider Active Team Status: Inactive Member Role Status Dates Janeneamanda Lew Primary Care Provider Active Sta rt: August 15, 2023 End: August 15, 2023 Halle Mac MD Attending Provider Active Star t: August 15, 2023 End: August 15, 2023 Team Status: Active Member Role Status Dates Janene Lew Primary Care Provider Active Sta rt: September 03, 2023 Valdemar Alonso MD Attending Provider Active Start: September 03, 2023 Team Status: Inactive Member Role Status Dates Janeneamanda Lew Primary Care Provider Active Sta rt: October 01, 2023 End: October 02, 2023 Alma Deng MD Admit Provider Active Start: October 01, 2023 End: October 02, 2023 Des Benitez MD Other Provider Active Start: J 2023 End: October 02, 2023 Fernando Rosenberg MD Attending Provider Active Start: October 01, 2023 End: October 02, 2023 Team Status: Active Member Role Status Dates [facility] Primary Care Provider Active Sta rt: October 01, 2023 Alma Deng MD Admit Provider Active Start: October 01, 2023 Des Benitez MD Attending Provider, Other Provider Active Start: October 01, 2023 Fernando Rosenberg MD Other Provider Active Start: October 01, 2023 Team Status: Inactive Member Role Status Dates [facility] Primary [facility] Provider Active Sta rt: October 11, 2023 End: October 11, 2023 Fernando Rosenberg MD Attending Provider Active Start: October 11, 2023 End: October 11, 2023 Team Status: Active Member Role Status Dates [facility] Primary Care Provider Active Sta rt: October 16, 2023 Valdemar Alonso MD Attending Provider Active Start: October 16, 2023 Team Status: Inactive Member Role Status Dates [facility] Primary Care Provider Active Sta rt: October 16, 2023 End: October 16, 2023 Halle Mac MD Attending Provider Active Star t: October 16, 2023 End: October 16, 2023 Goals (unrecognized section and content) Goals may [...] BE BASED ON THE PRIMARY CLINICAL RECORDS. [employer] provides no warranty or guarantee of the accuracy or completeness of information in this document.
--- NOTE | 2023-10-17 09:54 | P.CN_ITS ---
Consult Note: HPI Data of Consult Patient: known to practice within the last 3 years Consult date: 01/01/23 Requesting Physician: Becca Meneses NP Primary Care Provider: Janene Lew NP Consult Narrative Reason for consult: f/u Narrative: pleasant 52yof who presents for evaluation. increasing low back pain. imaging reviewed of lumbar spine consistent with lumbar spondylosis and facet arthropathy. engages in >6 week course of provider directed home exercises, with limited benefit. underwent two previous discectomies, with little relief. neurosurgeon does not recommend further surgery. was advised to consider scs and declines. utilizes gabapentin and percocet. denies adverse med side effects. Today pain 7/10 in right middle back, bilateral buttock, bilateral low back, feels like a stabbing pain. Patient continues to find functional improvement from current medication regimen. most recently underwent bilateral L4-5 L5-S1 facet medial branch #1 and #2 with 100% improvement in low back pain and functional improvement immediately following and hours after the procedure cc:: CC: Becca Meneses NP Review of Systems ROS Status of ROS 10 or more systems reviewed and unremark able except as noted in history and below Musculoskeletal Reports: back pain PFSH PFSH Medical History Bipolar 1 disorder ?F31.9 - Bipolar disorder, unspecified (ICD-10) Anxiety ?F41.9 - Anxiety disorder, unspecified (ICD-10) Diabetes ?E11.9 - Type 2 diabetes mellitus without complications (ICD-10) URIEL on CPAP ?G47.33 - Obstructive sleep apnea (adult) (pediatric) (ICD-10) Sleep apnea ?G47.30 - Sleep apnea, unspecified (ICD-10) High cholesterol ?E78.00 - Pure hypercholesterolemia, unspecified (ICD-10) CHF (congestive heart failure) ?I50.9 - Heart failure, unspecified (ICD-10) Surgical History History of hysterectomy ?Z90.710 - Acquired absence of both cervix and uterus (ICD-10) History of shoulder surgery ?Z98.890 - Other specified postprocedural states (ICD-10) History of neck surgery ?Z98.890 - Other specified postprocedural states (ICD-10) History of back surgery ?Z98.890 - Other specified postprocedural states (ICD-10) History of heart artery stent ?Z95.5 - Presence of coronary angioplasty implant and graft (ICD-10) Social History Smoking status: Never smoker Meds Home Medications and Allergies Home Medications ?Medication ?Instructions ?Recorded ?Confirmed ?Type amlodipine 10 mg tablet 10 mg PO QDAY 12/18/22 09/24/23 History aripiprazole 10 mg tablet 10 mg PO QDAY 12/18/22 09/24/23 History aspirin 81 mg chewable tablet 81 mg PO QDAY 12/18/22 09/24/23 History atorvastatin 80 mg tablet 80 mg PO QDAY 12/18/22 09/24/23 History buspirone 30 mg tablet 30 mg PO BID 12/18/22 09/24/23 History cariprazine 6 mg capsule (Vraylar) 6 mg PO Q24H 12/18/22 09/24/23 History fenofibrate nanocrystallized 145 145 mg PO QDAY 12/18/22 09/24/23 History mg tablet furosemide 20 mg tablet 40 mg PO QDAY 12/18/22 09/24/23 History gabapentin 600 mg tablet 600 mg PO QDAY PRN neuromuscular 12/18/22 09/24/23 History blockade isosorbide mononitrate 30 mg 30 mg PO QDAY 12/18/22 09/24/23 History tablet,extended release 24 hr metoprolol succinate 25 mg 12.5 mg PO QDAY 12/18/22 09/24/23 History tablet,extended release 24 hr pioglitazone 45 mg tablet 45 mg PO QDAY 12/18/22 09/24/23 History sacubitril 49 mg-valsartan 51 mg 1 tab PO BID 12/18/22 09/24/23 History tablet (Entresto) spironolactone 25 mg tablet 25 mg PO QDAY 12/18/22 09/24/23 History tizanidine 4 mg tablet 4 mg PO Q8H PRN muscle spasticity 12/18/22 09/24/23 History cetirizine 10 mg tablet (Zyrtec) 10 mg PO DAILY PRN allergy symptoms 01/01/23 09/24/23 History ferrous sulfate 134 mg (27 mg 134 mg PO DAILY 01/01/23 09/24/23 History iron) tablet (High Potency Iron) oxycodone-acetaminophen 7.5 mg-325 1 tab PO BID PRN pain #60 tabs 08/22/23 09/24/23 Rx mg tablet (Percocet) fluoxetine 10 mg capsule (Prozac) 10 mg PO DAILY 09/24/23 09/24/23 History oxycodone-acetaminophen 7.5 mg-325 1 tab PO Q8H PRN pain #60 tabs 09/24/23 Rx mg tablet (Percocet) Allergies Allergy/AdvReac Type Severity Reaction Status Date / Time Sulfa (Sulfonamide Allergy Mild Hives Verified 09/24/23 08:48 Antibiotics) prochlorperazine AdvReac Intermediate Agitated Verified 09/24/23 08:48 [From Compazine] promethazine [From Phenergan] AdvReac Intermediate Agitated Verified 09/24/23 08:48 sulfamethoxazole AdvReac Mild Hives Verified 09/24/23 08:48 [From Bactrim] trimethoprim [From Bactrim] AdvReac Mild Hives Verified 09/24/23 08:48 Exam Constitutional Documenting provider has reviewed patient's vital signs: yes Common normals: no apparent distress, oriented x3, healthy appearing, alert and well nourished General appearance: cooperative HENMT Common normals: normocephalic, hearing grossly normal bilaterally and moist oral mucous membranes Head and scalp: normocephalic Eye Common normals: PERRL Pupil: PERRL Neck & C-Spine Common normals: full ROM General: normal visual inspection Chest Common normals: inspection of chest normal Respiratory Common normals: normal respiratory effort, no retractions and no use of accessory muscles Back & Pelvis Lumbar spine/lower back: ROM limited, pain with ROM and straight leg raise negative bilaterally Other: positive facet loading axial low back pain without radiculopathy strength 5/5 in BLE, sensation intact Extremity Common normals: normal to inspection and full ROM Neuro Common normals: oriented x3, CN's II-XII intact bilaterally, moves all extremities, no focal motor deficits, no sensory deficits noted and deep tendon reflexes 2+ bilaterally Sensorium/orientation: alert Motor exam: strength 5/5 throughout and no movement abnormalities noted Psych Common normals: mental status grossly normal, thought process normal, cooperative, affect normal, speech normal and activity/motor behavior normal Speech: normal speech Thought process: normal thought process Results Additional Findings Additional findings: If on a controlled substance or opioids, I have checked an [place] report on this patient and there are no aberrancies noted in the prescribing history.??If on a controlled substance or opioid a drug screen was completed and reviewed within the last year, and if there has not been a drug screen completed we ordered one today to monitor higher risk, state monitored pain medication use. As part of providing excellent, safe, comprehensive care, the following was completed at our patient's visit: 1. A medication reconciliation and review to ensure accurate knowledge of current/active medications, including asking our patients to inform us about any [id number] medications or herbal remedies/nutritional supplements/alternative remedies. 2. A review to specifically ensure our patients have had annual screening for screening for depression, screening for tobacco use, and screening for unhealthy alcohol use. For concerning screenings had a discussion with the patient, provided patient education, and recommended follow-up with primary care provider when appropriate. If patient noted with a risk of falling, they received education on strength, gait, and balance training to prevent future risk of falling. Assessment and Plan Assessment and Plan (1) Lumbar spondylosis: Assessment and Plan: The patient has had over 3 months of moderate to severe low back pain with functional impairment and inadequate response to conservative care including NSAIDS (unless there are contraindication such as concurrent blood thinners), multiple oral or topical pain medications, and home exercise program/physical therapy.? Patient has completed >6 weeks of guided home exercise program and/or formal physical therapy program without relief of their symptoms.? I have reviewed the imaging of the lumbar spine and no red flags were identified.? The imaging reveals radiographic findings consistent with lumbar spondylosis The Oswestry Disability Index was completed, and the patient scored a 46%.? The patient noted the following:?? moderate to severe pain, pain with ADLs, pain with walking, pain impacting sleep, pain impacting social life and travel? We discussed the risks and benefits of the procedure with the patient, and we are NOT planning on using sedation as outlined in the guidelines from Medicare unless there is a documented reason that sedation would be strongly recommended.?? ?The procedure will be completed with fluoroscopic guidance.? (2) Thoracic radiculopathy: Assessment and Plan: resolved (3) Thoracic stenosis: (4) Chronic prescription opiate use: (5) Chronic pain syndrome: Plan bilateral L4-5 L5-S1 facet medial branch thermal RFA with 10mg PO valium. Patient previously had significant relief from lumbar RFAs with Dr Kelley in the past, greater than 50% relief greater than 1 year per pt. continue percocet to 7.5mg BID PRN moderate to severe pain, patient admitted to overtaking medication today as on occasion she has taken TID due to increased pain. Patient instructed not to take more than BID PRN. continue other medications. Goal to wean opioids after RFA. patient would not like to pursue SCS trial, no longer having severe thoracic pain with radiculopathy f/u 1 month after RFA
== END 2023-10-17 09:20 | disposition home or self-care (01) ==
LOC: PM 09:19
PROVIDERS: PCP Nurse Practitioner; Visit Provider Nurse Practitioner
DX: M47.816 Spondylosis without myelopathy or radiculopathy, lumbar region (principal); M54.14 Radiculopathy, thoracic region; M48.04 Spinal stenosis, thoracic region; Z79.891 Long term (current) use of opiate analgesic; G89.4 Chronic pain syndrome
CPT/HCPCS: G0463

== ENCOUNTER 2023-12-03 09:25 | Day surgery (SDC) | payer BC, SELFPAY ==
[2023-12-03 10:11] VITALS: BP 169/94; PULSE 57; TEMP 36.3; O2SAT 100
[2023-12-03 10:24] LABS: Glucometer 84 mg/dL (74-106)
[2023-12-03 10:39] VITALS: BP 177/88; BP 182/89; PULSE 61; PULSE 64; O2SAT 97
[2023-12-03] MEDS: BUPIVACAINE HCL 0.25% PF 25 MG/10 ML VIAL 4 ML INJ (10:40)
[2023-12-03] MEDS: LIDOCAINE HCL 2% 400 MG/20 ML MDV 16 ML INJ (10:40)
[2023-12-03] MEDS: TRIAMCINOLONE ACETONIDE 40 MG/ML VIAL 80 MG INJ (10:41)
--- NOTE | 2023-12-03 10:53 | P.ON_ITS ---
Date of procedure: 12/03/23 Pre-op diagnosis: Pain due to lumbar spondylosis without myelopathy Post-op diagnosis: same as pre-op Procedure: Procedure: Bilateral L4-5, L5-S1 radiofrequency ablation Medications: Bupivacaine 0.25% 6cc, lidocaine 2% 6cc, kenalog 80mg The patient was seen and examined in the preoperative holding area.? The site was marked.? Written informed consent was obtained and placed on the chart.? The patient was brought to the medical procedure unit and placed in the prone position.? A timeout was completed verifying correct patient, procedure, positioning, and special requirements.? The skin overlying the target points, the designated medial branch, were prepped and draped in the usual sterile fashion.? The target point was achieved with a 20-gauge 15 cm with a 10 mm curved active tip radiofrequency cannula under direct fluoroscopic visualization.? The needle was inserted at level L4 on the right side. Needle tip position was confirmed with lateral fluoroscopic position.? Motor stimulation was carried out at 2 Hz up to 5 volts with the absence of extremity activity.? This was repeated at level L5, S1 on right side.?? Sensory stimulation was carried out.? Concordant pain was realized at the above- mentioned sites.? Then radiofrequency lesioning was carried out times 90 seconds at 80 degrees times 2 lesions at each level.? The radiofrequency probe was removed prior to cannula removal.? The above-mentioned injectate was placed in 1 mL increments.? The needle was removed. The same procedure, with the same steps, was then completed on the left side at the same levels. Insertion sites were covered.? The patient was taken to the postoperative recovery area and monitored for an appropriate length of time before being found suitable for discharge in the company of a responsible adult. Anesthesia: Local Surgeon: Elza Conway Pathology: none sent Condition: stable Disposition: no change
== END 2023-12-03 11:13 | disposition home or self-care (01) ==
LOC: SURGOUT 09:26
PROVIDERS: PCP Nurse Practitioner; Visit Provider Anesthesiology
DX: M47.816 Spondylosis without myelopathy or radiculopathy, lumbar region (principal); Z79.84 Long term (current) use of oral hypoglycemic drugs
CPT/HCPCS: 36415; 64635; 64636; 82948; J0665; J3301

== ENCOUNTER 2023-12-18 13:30 | Outpatient (OUT) | payer BC, SELFPAY ==
[2023-12-18 13:46] LABS: Basophils Absolute Auto 0.1 10^3/uL (0.0-0.1); Basophils Percent Auto 0.6 % (0.2-2.0); Eosinophils Absolute Auto 0.1 10^3/uL (0.0-0.7); Eosinophils Percent Auto 1.4 % (0.9-7.0); Hemoglobin 12.4 g/dL (12.0-16.0); Immature Granulocytes Abs Auto 0.03 10^3/uL (0.00-0.03); Immature Granulocytes Pct Auto 0.4 % (0.0-0.5); Lymphocytes Absolute Auto 1.9 10^3/uL (1.2-3.8); Lymphocytes Percent Auto 24.7 % (20.5-60.0); Mean Corpuscular Hemoglobin 28.4 pg (26.7-34.0); Mean Corpuscular Volume 91.5 fL (81.0-99.0); Mean Platelet Volume 11.1 fL (9.5-13.5); Monocytes Absolute Auto 0.4 10^3/uL (0.3-0.8); Monocytes Percent Auto 4.6 % (1.7-12.0); Neutrophils Absolute Auto 5.3 10^3/uL (1.4-6.5); Neutrophils Percent Auto 68.3 % (43.0-75.0); Platelet Count 261 10^3/uL (150-450); Red Blood Count 4.37 10^6/uL (4.20-5.40); Red Cell Distribution Width 14.1 % (11.0-15.0); White Blood Count 7.8 10^3/uL (4.0-11.0)
[2023-12-18 14:14] LABS: Anion Gap 13.3; BUN Creatinine Ratio 19.4; Calcium 9.2 mg/dL (8.5-10.1); Carbon Dioxide 24.5 mmol/L (21.0-32.0); Chloride 110 mmol/L (98-107); Estimated GFR (African America 46 (>=60); Estimated GFR (Non-African Ame 38 (>=60); Glucose 110 mg/dL (74-106); Potassium 3.8 mmol/L (3.5-5.1); Sodium 144 mmol/L (136-145)
== END 2023-12-18 13:31 | disposition home or self-care (01) ==
LOC: LAB 13:33
PROVIDERS: PCP Nurse Practitioner; Visit Provider Nurse Practitioner
DX: R10.32 Left lower quadrant pain (principal)
CPT/HCPCS: 36415; 80048; 85025

== ENCOUNTER 2024-01-03 08:51 | Outpatient (OUT) | payer BC, SELFPAY ==
--- OUTSIDE RECORDS SUMMARY | 2024-01-03 09:02 | XMS_ITS | CCD ---
Author Organization [facility] Care Team Providers Care Fruit Stuffer Name Role Phone Peng Merino Admitting Unavailable Peng Merino Attending Unavailable GEOVANNI BRUNNER Primary Care Unavailable HAMMAD LING Referring Unavailabl e [place] Procedure Practitioner Unavailab TK [place] Surgeon Unavailable Christian Mckenzie Unavailable Janene Lew Primary Care Provider MD Christian Mckenzie Attending Provider [phone] ELIER Bolivar Emma Attending Provider Emma Bolivar Unavailable Halle Mac Unavailable Janene Lew Primary Care Provider [phone] STU Hernandez-LYNNE Antunez Emergency Provider Ivan Sams Unavailable AICHHOLZ, DISTRICT MANAGER PRIMARY CARE SALES JANENE Consulting Unavailable AICHHOLZ, DISTRICT MANAGER PRIMARY CARE SALES JANENE Attending Unavailable AICHHOLZ, DISTRICT MANAGER PRIMARY CARE SALES JANENE Admitting Unavailable AICHHOLZ, DISTRICT MANAGER PRIMARY CARE SALES JANENE Primary Care Unavailable AICHHOLZ, DISTRICT MANAGER PRIMARY CARE SALES JANENE Consulting Unavailable AICHHOLZ, DISTRICT MANAGER PRIMARY CARE SALES JANENE Attending Unavailable AICHHOLZ, DISTRICT MANAGER PRIMARY CARE SALES JANENE Admitting Unavailable AICHHOLZ, DISTRICT MANAGER PRIMARY CARE SALES JANENE Primary Care Unavailable AICHHOLZ, DISTRICT MANAGER PRIMARY CARE SALES JANENE Primary Care Unavailable AICHHOLZ, DISTRICT MANAGER PRIMARY CARE SALES JANENE Consulting Unavailable AICHHOLZ, DISTRICT MANAGER PRIMARY CARE SALES JANENE Admitting Unavailable AICHHOLZ, DISTRICT MANAGER PRIMARY CARE SALES JANENE Attending Unavailable AYDIN Carrillo, DR MIGUEL Attending Unavailable DR MYRIAM SAMANIEGO Admitting Unavailable AYDIN ., DR MIGUEL Consulting Unavailable AICHHOLZ, DISTRICT MANAGER PRIMARY CARE SALES JANENE Primary Care Unavailable AICHHOLZ, DISTRICT MANAGER PRIMARY CARE SALES JANENE Primary Care Unavailable DWAYNE FRIEDMAN Admitting Unavailable DWAYNE FRIEDMAN Attending Unavailable CASH .CLEMENT Consulting Unavailable Wan Jenkins Consulting Unavailable AICHHOLZ, DISTRICT MANAGER PRIMARY CARE SALES JANENE Primary Care Unavailable JP, EVON Attending Unavailable JP, EVON Admitting Unavailable EVON TRAMMELL Consulting Unavailable LUZ COELLO Consulting Unavailable NATHAN COLE Consulting Unavailable LIN GARRETT Consulting Unavailable AICHHOLZ, DISTRICT MANAGER PRIMARY CARE SALES JANENE Primary Care Unavailable AICHHOLZ, DISTRICT MANAGER PRIMARY CARE SALES JANENE Admitting Unavailable AICHHOLZ, DISTRICT MANAGER PRIMARY CARE SALES JANENE Attending Unavailable TIFFANY, DR ALEX Ashley Consulting Unavailable AICHHOLZ, DISTRICT MANAGER PRIMARY CARE SALES JANENE Consulting Unavailable AICHHOLZ, DISTRICT MANAGER PRIMARY CARE SALES JANENE Consulting Unavailable AICHHOLZ, DISTRICT MANAGER PRIMARY CARE SALES JANENE Attending Unavailable AICHHOLZ, DISTRICT MANAGER PRIMARY CARE SALES JANENE Admitting Unavailable AICHHOLZ, DISTRICT MANAGER PRIMARY CARE SALES JANENE Primary Care Unavailable DR KATHY LOBATO Consulting Unavailable AICHHOLZ, DISTRICT MANAGER PRIMARY CARE SALES JANENE Attending Unavailable AICHHOLZ, DISTRICT MANAGER PRIMARY CARE SALES JANENE Admitting Unavailable AICHHOLZ, DISTRICT MANAGER PRIMARY CARE SALES JANENE Primary Care Unavailable DR ALEX ALLEN V Consulting Unavailable AICHHOLZ, DISTRICT MANAGER PRIMARY CARE SALES JANENE Consulting Unavailable AICHHOLZ, DISTRICT MANAGER PRIMARY CARE SALES JANENE Consulting Unavailable AICHHOLZ, DISTRICT MANAGER PRIMARY CARE SALES JANENE Primary Care Unavailable AICHHOLZ, DISTRICT MANAGER PRIMARY CARE SALES JANENE Attending Unavailable AICHHOLZ, DISTRICT MANAGER PRIMARY CARE SALES JANENE Admitting Unavailable AICHHOLZ, DISTRICT MANAGER PRIMARY CARE SALES JANENE Primary Care Unavailable AICHHOLZ, DISTRICT MANAGER PRIMARY CARE SALES JANENE Admitting Unavailable AICHHOLZ, DISTRICT MANAGER PRIMARY CARE SALES JANENE Consulting Unavailable AICHHOLZ, DISTRICT MANAGER PRIMARY CARE SALES JANENE Attending Unavailable DR KATHY LOBATO Consulting Unavailable AICHHOLZ, DISTRICT MANAGER PRIMARY CARE SALES JANENE Primary Care Unavailable BAKHOUS, AZIZ Admitting Unavailable BAKHOUS, AZIZ Attending Unavailable AICHHOLZ, DISTRICT MANAGER PRIMARY CARE SALES JANENE Attending Unavailable AICHHOLZ, DISTRICT MANAGER PRIMARY CARE SALES JANENE Admitting Unavailable AICHHOLZ, DISTRICT MANAGER PRIMARY CARE SALES JANENE Primary Care Unavailable AICHHOLZ, DISTRICT MANAGER PRIMARY CARE SALES JANENE Primary Care Unavailable AICHHOLZ, DISTRICT MANAGER PRIMARY CARE SALES JANENE Consulting Unavailable AICHHOLZ, DISTRICT MANAGER PRIMARY CARE SALES JANENE Attending Unavailable AICHHOLZ, DISTRICT MANAGER PRIMARY CARE SALES JANENE Admitting Unavailable DR KATHY LOBATO Consulting Unavailable AICHHOLZ, DISTRICT MANAGER PRIMARY CARE SALES JANENE Primary Care Unavailable AICHHOLZ, DISTRICT MANAGER PRIMARY CARE SALES JANENE Admitting Unavailable AICHHOLZ, DISTRICT MANAGER PRIMARY CARE SALES JANENE Attending Unavailable AICHHOLZ, DISTRICT MANAGER PRIMARY CARE SALES JANENE Consulting Unavailable AICHHOLZ, DISTRICT MANAGER PRIMARY CARE SALES JANENE Primary Care Unavailable AMBER ., DOLORES Attending Unavailable AMBER ., DOLORES Admitting Unavailable RAMIREZ ., MR LIN Consulting Unavailable AMBER ., DOLORES Consulting Unavailable ALEX AVINA Consulting Unavailable AICHHOLZ, DISTRICT MANAGER PRIMARY CARE SALES JANENE Primary Care Unavailable JP, EVON Attending Unavailable JP, EVON Admitting Unavailable JP, EVON Consulting Unavailable Aichholz, Janene J Primary Care Provider MD Valdemar Alonso Attending Provider MD Fauzia Hufmfan Attending Provider UnavailMD Halle Felton Referring Provider [phone] SONIA HAQ Primary Care Unavailable Aictimmyholz, Janene J Attending Unavailable Aictimmyholz, Janene J Admitting Unavailable Aichholz, Janene J Primary Care Provider [phone] MD Fauzia Huffman Attending Provider UnavailMD Halle Felton Referring Provider MD Halle Mac Attending Provider Emirufus, Janene J Primary Care Provider MD Valdemar Alonso Attending Provider MD Alma Deng Admit Provider MD Emmanuel [facility] Other Provider MD Fernando Rosenberg Attending Provider MD Valdemar Alonso Attending Provider [phone] MD Valdemar Alonso Attending Provider MD Ban Clemente Attending Provider LOUANN, JANENE Attending Unavailable BAN ARTIS Attending Unavailable AICHHOLZ, JANENE Referring Unavailable CLEMENTEBAN Child Attending Unavailable AICHHOLZ, JANENE Attending Unavailable JESSICA GASPAR Attending Unavailable AICHHOLZ, JANENE Referring Unavailable RUSHERJESSICA Referring Unavailable AICHHOLZ, JANENE Attending Unavailable CLEMENTE Gabi, BAN Attending Unavailable SHAIKH SCOTT Attending Unavailable AICHHOLZ, JANENE Attending Unavailable CLEMENTE Gabi, BAN Attending Unavailable LYNDSAY CASTORENA Attending Unavailable AICHHOLZ, JANENE Referring Unavailable AICHHOLZ, JANENE Attending Unavailable Giedraitis , Andrius Haywood Attending Unavailable Giedraitis MD, Andrius Gabiytautchuck Attending Unavailable Giedraitis MD, Andrius Vytautas Attending Unavailable Giedraitis MD, Andrius Vytautas Attending Unavailable Giedraitis , Andrius Vytautas Attending Unavailable ELTAHAWY, EHAB Referring Unavailable ELTAHAWY, EHAB Attending Unavailable ELTAHAWY, EHAB Attending Unavailable ELTAHAWY, EHAB Attending Unavailable Celeste, Valdemar Admitting Unavailab le Shantal Alonsoelrahman Attending Unavailab le Louann Janene J Primary Care Unavailable Des Benitez Unavailable Doamekpor, Fernando E Attending Unavailab le Reddhholrufus, Janene J Primary Care Unavailable Alma Deng Admitting Unavailable Kelechi Clementet Admitting Unavailable Ban Clemente Attending Unavailable Reddhholrufus, Janene J Primary Care Unavailable Tias, Aziz Referring Unavailable Aichholz, Janene J Primary Care Unavailable Fauzia Huffman Admitting Unavailable Fauzia Huffman Attending Unavailable Reddhholrufus, Janene J Primary Care Unavailable Fauzia Huffman Admitting Unavailable SprouFauzia simons Attending Unavailable Bakhous, Aziz Attending Unavailable Aichholz, Janene J Primary Care Unavailable Bakhous, Aziz Admitting Unavailable Doamekpor, Fernando E Admitting Unavailab le Doamekpor, Fernando E Attending Unavailab le Aichholrufus, Janene J Primary Care Unavailable Allergies Allergy Classification Reported Allergen(s) Allergy Type Date of Onset Reaction(s) Facility (2 sources) Cephalexin Drug Allergy 10-06-19 10 [facility] Repository (2 sources) Levamisole Drug Allergy 05-22-19 13 [facility] Repository (2 sources) Omeprazole; Translations: [OMEPRAZOLE] Drug Allergy 04-20-19 16 [facility] Repository (14 sources) Prochlorperazine Drug Allergy 10-06-19 10 Unknown [facility] (14 sources) Sulfamethoxazole / Trimethoprim Drug Allergy 10-06-19 10 Unknown [facility] Rep[facility] (12 sources) Penicillins (Antibiotic) Propensity to adverse reactions Unknown [facility] Other (20 sources) Promethazine; Translations: [PROMETHAZINE] Drug Allergy 06-28-19 14 Unknown, Seizure [facility] (10 sources) empagliflozin; Translations: [EMPAGLIFLOZIN] Drug Allergy 08-11-19 22 Unknown Reaction [facility] (11 sources) Penicillins; Translations: [Penicillins] Allergy to substance 06-28-19 14 [facility] (10 sources) Prochlorperazine; Translations: [PROCHLORPERAZINE] Drug Allergy 06-28-19 14 [facility] (10 sources) Sulfamethoxazole; Translations: [SULFAMETHOXAZOLE] Drug Allergy 06-28-19 14 [facility] (9 sources) Trimethoprim; Translations: [trimethoprim] Drug Allergy 08-11-19 22 [facility] (1 source) Sulfonamides (Antibiotic) Drug allergy (disorder) 06-10-19 15 [facility] Repository (4 sources) zolpidem; Translations: [zolpidem] Drug Allergy 10-01-19 24 Unknown Reaction [facility] (1 source) Cephalexin; Translations: [CEPHALEXIN] Drug Allergy 06-28-19 14 [facility] Repository (1 source) Doxycycline; Translations: [DOXYCYCLINE CALCIUM] Drug Allergy 06-28-19 14 [facility] Repository (1 source) Esomeprazole; Translations: [ESOMEPRAZOLE MAGNESIUM] Drug Allergy 06-23-19 17 [facility] Repository (1 source) pantoprazole; Translations: [PANTOPRAZOLE] Drug Allergy 06-23-19 17 [facility] Repository (1 source) Sulfamethoxazole / Trimethoprim; Translations: [SULFAMETHOXAZOLE-T RIMETHOPRIM] Drug Allergy 04-03-20 14 [facility] Repository (1 source) PHENERGAN PLAIN; Translations: [PHENERGAN PLAIN] Propensity to adverse reactions to drug (disorder) 09-17-19 [facility] Repository (1 source) Promethazine Drug Allergy 10-16-19 [facility] Repository Medications Current Medications Medication Drug Class(es) Dates Sig (Normalized) Sig (Original) acetaminophen 325 mg / oxyCODONE hydrochloride 7.5 mg oral tablet (16 sources) Opioid Agonist Start: 10-01-2023 End: 10-16-2023 take 1 tablet by mouth every eight hours Oxycodone-Acetami nophen Active 1 TAB PO Every 8 hours October 16, 2023 1:11pm Start: 06-24-2022 End: 08-15-2023 take 1 tablet by mouth every six hours Oxycodone-Acetaminophen Discontinued 1 T AB PO Q6H 10 3 June 24, 2022 August 15, 2023 10:12am [id number] actuat albuterol 0.09 mg/actuat metered dose inhaler (6 sources) beta2-Adrenergic Agonist Start: 06-04-2021 take 1 puff(s) by inhalation every four hours Albuterol Sulfate (Ventolin Hfa) 90 mcg/actuation HFA aerosol inhaler Active 2 PUFF INHALATION Q4H June 04, 2021 1:00am Albuterol Active amLODIPine 10 mg oral tablet (12 sources) Dihydropyridine Calcium Channel Seema Start: 10-16-2023 [...] aspirin 81 mg delayed release oral tablet (15 sources) Platelet Aggregation Inhibitor, Nonsteroidal Anti-inflammatory Drug [...] 2023 10:06am take 1 tablet by brandin every twenty-four hours Atorvastatin Calcium 80 MG 1 tablet Orally Once a day Active Biotin (6 sources) Biotin Active busPIRone hydrochloride 30 mg oral tablet (20 sources) Start: 06-04-19 take 30 mg by mouth twice daily Buspirone Active 30 MG PO Twice daily June 04, 2021 1:00am Calcium Citrate + D 315-200 MG-UNIT (6 sources) take 1 tablet by mouth twice daily Calcium Citrate + D 315-200 MG-UNIT 1 tablet Orally Twice a day Active cariprazine 6 mg oral capsule (6 sources) Atypical Antipsychotic Start: 08-15-19 take 6 mg by mouth once daily Cariprazine Active 6 MG PO Daily August 15, 2023 12:00am take 1 capsule by mo [facility] every twenty-four hours Vraylar 6 MG 1 capsule Orally Once a day Active Vraylar Active cetirizine hydrochloride 10 mg oral tablet (17 sources) Histamine-1 Receptor Antagonist Start: 10-06-2019 take 1 tablet by mouth once daily Cetirizine (Zyrtec) 10 mg Tablet Active 10 MG PO Daily June 04, 2021 1:00am Cetirizine HCl A ctive cholecalciferol 0.125 mg oral capsule (3 sources) Vitamin D Start: 08-15-2023 take 125 [...] 1100 Active fenofibrate 145 mg oral tablet (16 sources) Peroxisome Proliferator Receptor alpha Agonist Start: 12-05-2019 take 145 mg by mouth once daily Fenofibrate Nanocrystallized Active 145 MG PO Daily June 04, 2021 1:00am Fenofibrate Acti ve FLUoxetine 20 mg oral capsule (5 sources) Serotonin Reuptake Inhibitor Start: 10-16-2023 take 1 capsule by mouth once daily Fluoxetine (Prozac) 20 mg capsule Active 20 MG PO Daily October 16, 2023 12:00am Start: 10-01-2023 End: 10-16-2023 take 10 mg by mouth once daily Fluoxetine Discontinued 10 MG PO Daily October 01, 2023 12:00am October 16, 2023 1:08pm fluticasone propionate 0.05 mg/actuat metered dose nasal spray (11 sources) Corticosteroid Start: 06-04-2021 End: 10-16-2023 Fluticasone Propionate Active 2 SPRAY INTRANASAL Daily October 16, 2023 1:10pm Fluticasone Prop ionate Active furosemide 20 mg oral tablet (9 sources) Loop Diuretic Start: 08-15-2023 take 1 tablet by mouth once daily Furosemide (Lasix) 20 mg tablet Active 20 MG PO Daily August 15, 2023 12:00am [facility] Lasix 20 MG 1 [...] Start: 11-10-2021 take 1 tablet by brandin every twelve hours Gabapentin 600 MG 1 tablet Orally TWICE A DAY for 20 days Oct, Active Start: 11-10-2021 take 2 tablets by mo [facility] every twelve hours Gabapentin 600 MG 2 tablets Orally bid for 20 days Oct, Active Start: 09-29-2021 take 1-2 capsules by mouth twice daily Gabapentin 300 MG 1-2 capsule Orally twice a day for 30 day(s) Sep, Active Start: 12-05-2019 take 1 capsule by mo [facility] every twenty-four hours Gabapentin 300 MG 1 capsule Orally Once a day for 30 day(s) Nov, Active hydroCHLOROthiazide 12.5 mg oral tablet (1 source) Thiazide Diuretic take 1 tablet by mouth every twenty-four hours hydroCHLOROthiazide 12.5 MG 1 tablet in the morning Orally Once a day Active lamoTRIgine 200 mg oral tablet (9 sources) Mood Stabilizer, Anti-epileptic Agent Start: 2023 take 1 tablet by mouth once daily Lamotrigine (Lamictal) 200 mg tablet Active 200 MG PO Daily August 15, 2023 12:00am take 1 tablet by brandin th every twenty-four hours LaMICtal 200 MG 1 tablet Orally Once a day Active magnesium oxide 400 mg oral tablet (19 sources) Start: 12-09-2018 take 1 tablet by brandin th every twenty-four hours Magnesium Oxide 400 [...] succinate 25 mg extended release oral tablet (15 sources) beta-Adrenergic Seema Start: 06-04-2021 take 12.5 [...] May, Active pioglitazone 45 mg oral tablet (18 sources) Peroxisome Proliferator Receptor alpha Agonist, Peroxisome [...] mg / valsartan 51 mg oral tablet (5 sources) Angiotensin 2 Receptor Seema Start: 4 End: 4 take 0.5 tablet by mouth twice daily Sacubitril-Valsartan (Entresto) 49-51 mg tablet Active 0.5 TAB PO Twice daily October 16, 2023 1:24pm Tirzepatide (2 sources) Start: 4 Tirzepatide (Mounjaro) 5 mg/0.5 mL pen injector Active 5 MG SUBCUT every week October 16, 2023 12:00am tiZANidine 4 mg oral tablet (18 sources) Central alpha-2 Adrenergic Agonist Start: take 4 mg by mouth every eight [...] ctive vitamin b12 2.5 mg sublingual tablet (5 sources) Vitamin B12 Start: 10-01-2023 take 2500 [...] Sep, Not-Taking ARIPiprazole 20 mg oral tablet (18 sources) Atypical Antipsychotic Start: 08-15-2023 End: 10-16-2023 [...] 30 Not-Taking ciprofloxacin 500 mg oral tablet (8 sources) Quinolone Antimicrobial Start: 08-13-2021 End: 08-15-2023 take 1 tablet by mouth every two hours Ciprofloxacin Hcl (Cipro) 500 mg Tablet Discontinued 500 MG PO Q12H August 13, 2021 12:00am August 15, 2023 10:07am administer dose at least 2 hrs before/6 hrs after dairy products, calcium, zinc, and/or iron-containing products cyclobenzaprine hydrochloride 10 mg oral tablet (8 sources) Muscle Relaxant Start: 08-13-2021 End: 06-24-2022 [...] 30 Not-Taking glipiZIDE 5 mg oral tablet (20 sources) Sulfonylurea Start: 06-04-2021 End: 08-15-2023 take 5 mg by mouth once daily Glipizide Discontinued 5 MG PO Daily June 04, 2021 1:00am August 15, 2023 10:08am take 0.5 tablet by mouth once da kaiden glipiZIDE 5 MG 1/2 tablet Orally Once a day Active 24 hr isosorbide mononitrate 30 mg extended release oral tablet (15 sources) Nitrate Vasodilator Start: 06-04-2021 End: 10-02-2023 take 30 mg by mouth once daily Isosorbide Mononitrate Discontinued 30 MG PO Daily June 04, 2021 1:00am October 02, 2023 10:56am take 1 tablet by brandin th every twenty-four hours Isosorbide Mononitrate 10 MG 1 tablet Orally once a day for 30 day(s) Active lidocaine 0.05 mg/mg medicated patch (6 sources) Antiarrhythmic, Amide Local Anesthetic Start: 06-24-2022 [...] Nov, Not-Taking lisinopril 40 mg oral tablet (20 sources) Angiotensin Converting Enzyme Inhibitor Start: 06-04-2021 End: 08-15-2023 take 40 mg by mouth once daily Lisinopril Discontinued 40 MG PO Daily June 04, 2021 1:00am August 15, 2023 10:09am Methylprednisolone (6 sources) Corticosteroid Start: 06-24-2022 End: 08-15-2023 Methylprednisolone Discontinued 0 PO .COMPLEX June 24, 2022 1:00am August 15, 2023 10:09am orally per package directions Start: 06-24-2022 Methylpredniso lone Active 0 PO .COMPLEX June 24, 2022 1:00am orally per package directions Start: 06-24-2022 Methylpredniso lone Active 0 PO .COMPLEX June 24, 2022 12:00am orally per package directions mirtazapine 15 mg oral tablet (9 sources) Start: 06-04-2021 End: 08-15-2023 take 30 mg by mouth at bedtime Mirtazapine Discontinued 30 MG PO Bedtime June 04, 2021 1:00am August 15, 2023 10:11am Mirtazapine [facility] Active mometasone furoate 0.05 mg/actuat metered dose nasal spray (3 sources) Corticosteroid Start: 10-01-2023 End: 10-16-2023 take [...] Active oxyCODONE hydrochloride 5 mg oral tablet (8 sources) Opioid Agonist Start: 08-13-2021 End: 06-24-2022 take 5-10 mg by mouth every six hours Oxycodone Discontinued 5 - 10 MG PO Q6H 50 8 August 13, 2021 June 24, 2022 6:53pm pramipexole dihydrochloride 0.25 mg oral tablet (3 sources) Nonergot Dopamine Agonist Start: 10-01-2023 End: 10-16-2023 take 0.25 mg by mouth once daily at bedtime Pramipexole Discontinued 0.25 MG PO Daily at bedtime October 01, 2023 12:00am October 16, 2023 1:12pm Prednisone (8 sources) Start: 08-13-2021 End: 06-24-2022 Prednisone Discontinued [...] 3 days spironolactone 25 mg oral tablet (14 sources) Aldosterone Antagonist Start: 10-01-2023 End: 10-02-2023 take 25 mg by mouth once daily Spironolactone Discontinued 25 MG PO Daily October 01, 2023 12:00am October 02, 2023 10:55am Start: 06-04-2021 take 50 mg by mouth once daily Spironolactone Active 50 MG PO Daily June 04, 2021 1:00am Spironolactone A ctive Tirzepatide (3 sources) Start: 10-01-2023 End: 10-16-2023 Tirzepatide (Mounjaro) 2.5 m g/0.5 mL pen injector Discontinued 2.5 MG SUBCUT .weekly October 01, 2023 12:00am October 16, 2023 1:12pm Start: 10-01-2023 Tirzepatide (M ounjaro) 2.5 mg/0.5 mL pen injector Active 2.5 MG SUBCUT .weekly October 01, 2023 12:00am Triamcinolone (3 sources) Corticosteroid Start: 10-01-2023 End: 10-16-2023 Triamcinolone Acetonide Disc ontinued 110 MCG INTRANASAL Daily October 01, 2023 12:00am October 16, 2023 1:12pm Start: 10-01-2023 Triamcinolone Acetonide Active 110 MCG INTRANASAL Daily October 01, 2023 12:00am Problems Active Problems Problem Classification Problem Date Documented Date Episodic/Chronic Acute and unspecified renal failure (7 sources) Acute renal failure syndrome; Translations: [Acute kidney failure, unspecified] Onset: 10-01-2023 10-10-2023 Episodic Allergic reactions (12 sources) Environmental allergy; Translations: [Other allergy status, other than to drugs and biological substances] Episodic Chronic kidney disease (20 sources) Chronic kidney disease stage 3; Translations: [Chronic kidney disease, stage 3 unspecified] Onset: 10-01-2023 07-11-2023 Chronic Chronic kidney disease (2 sources) Chronic kidney disease; Translations: [Chronic kidney disease, stage 3b] Onset: 05-17-2023 Conditions associated with dizziness or vertigo (2 sources) Dizziness and giddiness; Translations: [Dizziness and giddiness] Onset: 11-13-2023 Episodic Coronary atherosclerosis and other heart disease (11 sources) Coronary arteriosclerosis; Translations: [Atherosclerotic heart disease of [place] coronary artery without angina pectoris] Onset: 09-11-2022 08-11-2021 Chronic Deficiency and other anemia (1 source) Anemia in chronic kidney disease; Translations: [Anemia in chronic kidney disease] Onset: 10-01-2023 Chronic Diabetes mellitus with complications (20 sources) Type 2 diabetes mellitus; Translations: [Type 2 diabetes mellitus with hypoglycemia without coma] Onset: 10-02-2021 Chronic Diabetes mellitus without complication (2 sources) Type 2 diabetes mellitus without complications; Translations: [TYPE 2 DM WITHOUT COMPLICATIONS] Onset: 09-11-2022 Chronic Disorders of lipid metabolism (20 sources) Dyslipidemia; Translations: [Hyperlipidemia, unspecified] Onset: 01-26-2022 Chronic Esophageal disorders (13 sources) Gastroesophageal reflux disease; Translations: [Gastro-esophageal reflux disease without esophagitis] Chronic Essential hypertension (20 sources) Essential hypertension; Translations: [Essential (primary) hypertension] Onset: 09-11-2022 08-10-2021 Chronic Fluid and electrolyte disorders (9 sources) Hyperkalemia; Translations: [Hyperkalemia] Onset: 10-04-2021 Episodic Genitourinary symptoms and ill-defined conditions (12 sources) Delay when starting to pass urine; Translations: [Hesitancy of micturition] Episodic Headache; including migraine (8 sources) Tension-type headache; Translations: [Tension-type headache, unspecified, not intractable] 02-25-2020 Chronic Hypertension with complications and secondary hypertension (20 sources) Hypertensive renal disease; Translations: [Hypertensive chronic kidney disease with stage 1 through stage 4 chronic kidney disease, or unspecified chronic kidney disease] Onset: 10-01-2023 Chronic Malaise and fatigue (8 sources) Decline in functional status; Translations: [Other malaise] 08-10-2021 Episodic Mood disorders (2 sources) Bipolar disorder, unspecified; Translations: [BIPOLAR DISORDER UNSPECIFIED] Onset: 05-31-2022 Chronic Nonspecific chest pain (20 sources) Chest pain; Translations: [Other chest pain] Onset: 09-11-2022 06-04-2021 Episodic Nutritional deficiencies (20 sources) Vitamin D deficiency; Translations: [Vitamin D deficiency, unspecified] 10-10-2023 Chronic Nutritional deficiencies (16 sources) Cobalamin deficiency; Translations: [Deficiency of other specified B group vitamins] 10-10-2023 Episodic Other aftercare (1 source) terminal worker (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; Translations: [MANUFACTURING INTERN CURRENT USE OF ASPIRIN] Onset: 09-11-2022 Episodic Other aftercare (1 source) terminal worker (current) use of oral hypoglycemic drugs; Translations: [PENITENTIARY USE ORAL HYPOGLYCEMIC DX] Onset: 09-11-2022 Episodic Other aftercare (1 source) Other jail (current) drug therapy; Translations: [OTH PENITENTIARY CURRENT DRUG THERAPY] Onset: 09-11-2022 Episodic Other [...] Chronic Other nutritional; endocrine; and metabolic disorders (15 sources) Hypomagnesemia; Translations: [Hypomagnesemia] 10-10-2023 Chronic Other nutritional; endocrine; and metabolic disorders (10 sources) Morbid obesity; Translations: [Morbid (severe) obesity [...] nutritional; endocrine; and metabolic disorders (5 sources) Hypomagnesemia; Translations: [Disorders of magnesium metabolism] 08-15-2023 Chronic Other nutritional; endocrine; and metabolic disorders (3 sources) Hyperuricemia; Translations: [Hyperuricemia without signs of inflammatory arthritis and tophaceous disease] 10-10-2023 Episodic Other nutritional; endocrine; and metabolic disorders (5 sources) Hyperuricemia without signs of inflammatory arthritis and tophaceous disease; Translations: [Other abnormal blood chemistry] 08-15-2023 Episodic Other screening for suspected conditions (not mental disorders or infectious disease) (6 sources) Encounter for screening mammogram for malignant neoplasm of breast; Translations: [Abnormal findings on diagnostic imaging of other parts of musculoskeletal system] Onset: 03-27-2022 Episodic Residual codes; unclassified (12 sources) Sleep apnea; Translations: [Sleep apnea, unspecified] Chronic Residual codes; unclassified (19 sources) Obstructive sleep apnea syndrome; Translations: [Obstructive sleep apnea (adult) (pediatric)] Chronic Residual codes; unclassified (2 sources) Obstructive sleep apnea (adult) (pediatric); Translations: [OBSTRUCTIVE SLEEP APNEA] Onset: 09-11-2022 Chronic Residual codes; unclassified (4 sources) Localized edema; Translations: [Localized edema] 07-11-2023 [...] Translations: [UNSPECIFIED ABDOMINAL PAIN] Onset: 02-21-2022 Episodic Deficiency and other anemia (4 sources) [...] unspecified; Translations: [DYSPNEA UNSPECIFIED] Onset: 12-25-2021 Episodic Residual codes; unclassified (8 sources) Localized edema; Translations: [Edema] Onset: 09-11-2022 Episodic Residual codes; unclassified (1 [...] and collapse; Translations: [Syncope and collapse] Onset: 09-11-2023 Episodic Unclassified (1 source) CONTACT W/AND (SUSP) EXPOS COVID-19; Translations: [CONTACT W/AND (SUSP) EXPOS COVID-19] Onset: 12-21-2021 Results Test Name Value Interpretation Reference Range Facility Office Visiton 12-18-2023 Follow-up visit [id number] Nithin Humphreys 1970 F Date Provider Department Center 12/18/2023 [id number], EHAB CARD [facility] No family history on file Level of Service:90700 [place] OFFICE/OUTPATIENT ESTABLISHED LOW MDM 20 MIN Normal [facility] Capillary blood glucose timmy urement by glucometer (mass/volume)Ordered By: Ban Clemente on 11-01-2023 Glucose [Mass/Vol] 107 mg/dL Normal [facility] Comment on above: Random Glucose Refer ence Range is dependent on time and content of last meal. Glucose of more than 200 mg/dL in a nonstressed, ambulatory subject supports the diagnosis of Diabetes Mellitus. Result Comment: [facility] Glucose Reference Range is dependent on time and content of last meal. Glucose of more than 200 mg/dL in a nonstressed, ambulatory subject supports the diagnosis of Diabetes Mellitus. PERFORMED BY: [place] [address] PATHOLOGIST DIGITAL HARDWARE DESIGN ENGINEER ARIC BUTLER M.D. Performed By: #### A DDONUAPLUS #### [facility] [address] [place], [place] [id number] [facility] Glucose Poct Glucometerson 0 11-01-2023 Commemt1 Glu2: Cleaned Meter Normal [facility] Comment on above: Result Comment: PERF ORMED BY: [facility] [address] [place] [address] PATHOLOGIST DIGITAL HARDWARE DESIGN ENGINEER ARIC BUTLER M.D. Performed By: #### A DDONUAPLUS #### [facility] [address] [place], [place] [id number] [place] Glucose [Mass/Vol] 70 mg/dL Normal [facility] Comment on above: Result Comment: [facility] Glucose Reference Range is dependent on time and content of last meal. Glucose of more than 200 mg/dL in a nonstressed, ambulatory subject supports the diagnosis of Diabetes Mellitus. Performed By: #### A DDONUAPLUS #### [facility] [address] [place] 11-01-2023 L Specimen: [id number] Received: 11/01/23 Status: MEENAKSHI Iversonjarred Num: [id number] Spec Type: Surgical Subm Dr: Ban Clemente MD Tissues: A Colon Biopsy (CECAL POLYP) Procedures: HE/2, Gross/Micro L4 Age/ Patient Sex Location Account Attending Physician Sherly Humphreys 52/F OR [id number] aBn Clemente MD SPEC NUM: [id number] RECD: 11/01/23 STATUS: MEENAKSHI HINOJOSA NUM: [id number] RORY: 11/01/23 DR: Ban Clemente MD ENTERED: 11/01/23-8 [facility] DR: SPEC TYPE: Surgical DEPT: S ORDERED: HE/2, Gross/Micro L4 ORDERED: HE/2, Gross/Micro L4 Pathological Diagnosis Colon, cecal polyp (endoscopic polypectomy/biopsy): Tubular adenoma Clinical Information History of polyp Gross Description Received in formalin labeled with the patient's name, date of and cecal polyp is a 0.3 x 0.3 x 0.2 cm adame polypoid tissue fragment, entirely submitted in A1. CPT Codes 80683 Specimen: [id number] Received: 11/01/23 Status: MEENAKSHI Hinojosa Num: [id number] Spec Type: Surgical Subm Dr: Ban Clemente MD Tissues: A Colon Biopsy (CECAL POLYP) Procedures: HE/2, Gross/Micro L4 Patient: Sherly Humphreys [id number] (Continued) Signed (signature on file) Herminio Ragsdale Jr., MD 11/05/231907 Normal [facility] No Panel InformationOrdered By: Ban Clemente on 11-01-2023 Bedside Glucose Comment Glu2: cleaned meter [facility] Basic Metabolic Panelon 09-15 GFR/1.73 sq M.predicted MDRD (S/P/Bld) [Vol rate/Area] 28.812 mL/min/{1.73_m2} Normal [facility] Comment on above: Performed By: #### P RAMOS CAMILO #### [address] Calcium [Mass/volume] in Ser um or PlasmaOrdered By: Fernando Rosenberg on 10-11-2023 Calcium [Mass/Vol] 9.7 mg/dL Normal 8.6-10.3 [facility] Comment on above: Result Comment: PERF ORMED BY: [place] [address] PATHOLOGIST DIGITAL HARDWARE DESIGN ENGINEER ARIC BUTLER M.D. Performed By: #### ROXANA KINGONUAPLUS #### [facility] [address] [place] [address] [place] Carbon dioxide, total [Moles /volume] in Serum or PlasmaOrdered By: Fernando Rosenberg on 10-11-2023 CO2 [Moles/Vol] 26.7 mmol/L Normal 21.0-31.0 [facility] Comment on above: Performed By: #### JOSH KINGPLUS #### [facility] [address] [place] [address] [place] Chloride [Moles/volume] in S brunilda or PlasmaOrdered By: Fernando Rosenberg on 10-11-2023 Chloride [Moles/Vol] 107 mmol/L Normal 98-107 [facility] Comment on above: Performed By: #### MYLES KINGUAPLUS #### [facility] [address] [place] [address] [place] Creatinine [Mass/volume] in Serum or PlasmaOrdered By: Fernando Rosenberg on 10-11-2023 Creatinine [Mass/Vol] 2.04 mg/dL High 0.60-1.20 [facility] Comment on above: Performed By: #### ROXANA KINGONUAPLUS #### [facility] [address] [place] [address] [place] Glucose [Mass/volume] in Ser um or PlasmaOrdered By: Fernando Rosenberg on 10-11-2023 Glucose [Mass/Vol] 96 mg/dL Normal 70-100 [facility] Comment on above: ADA recommended refe rence rangeRandom Glucose Reference Range is dependent on time and content of last meal. Glucose of more than 200 mg/dL in a nonstressed, ambulatory subject supports the diagnosis of Diabetes Mellitus. Result Comment: [place] [facility] Glucose Reference Range is dependent on time and content of last meal. Glucose of more than 200 mg/dL in a nonstressed, ambulatory subject supports the diagnosis of Diabetes Mellitus. ADA recommended reference range Performed By: #### JOSH KINGPLUS #### [facility] [address] [place] [address] No Panel InformationOrdered By: Fernando Rosenberg on 10-11-2023 Estimated GFR (CKD-EPI) 28.812 mL/Min [facility] Creatinine Clearance (Chem N/A [facility] Potassium [Moles/volume] in Serum or PlasmaOrdered By: Fernando Rosenberg on 10-11-2023 Potassium [Moles/Vol] 5.2 mmol/L High 3.5-5.1 [facility] Comment on above: Performed By: #### JOSH KINGPLUS #### [address] Serum or plasma anion gap de terminationOrdered By: Fernando Rosenberg on 10-11-2023 Anion gap [Moles/Vol] 11.5 mmol/L Normal 6.0-15.0 [facility] Comment on above: Performed By: #### JOSH KINGPLUS #### [facility] [address] [place] [address] Sodium [Moles/volume] in Ser um or PlasmaOrdered By: Fernando Rosenberg on 10-11-2023 Sodium [Moles/Vol] 140 mmol/L Normal 136-145 [facility] Comment on above: Performed By: #### JOSH KINGPLUS #### [facility] [address] [place] [address] Urea nitrogen [Mass/volume] in Serum or PlasmaOrdered By: Fernando Rosenberg on 10-11-2023 Urea nitrogen [Mass/Vol] 41 mg/dL High 7-25 [facility] Comment on above: Performed By: #### JOSH KINGPLUS #### [facility] [address] [place] [address] 36on 10-02-2023 36 Patient made aware. I told her to make sure to call Dr. Siddiqui's office of neurology. Normal [facility] Automated basophil %Ordered By: Fernando Rosenberg on 10-02-2023 Basophils/100 WBC (Bld) 0.8 % Normal . [facility] Comment on above: Performed By: #### A DDONUAPLUS #### [address] Automated basophil countOrde red By: Fernando Rosenberg on 10-02-2023 Basophils (Bld) [#/Vol] 0.0 10*3/uL Normal 0.0-0.2 [facility] Comment on above: Result Comment: PERF ORMED BY: [place] [address] PATHOLOGIST DIGITAL HARDWARE DESIGN ENGINEER ARIC BUTLER M.D. Performed By: #### A DDONUAPLUS #### [address] Automated blood monocyte cou ntOrdered By: Fernando Rosenberg on 10-02-2023 Monocytes (Bld) [#/Vol] 0.3 10*3/uL Normal 0.0-0.8 [facility] Comment on above: Performed By: #### A DDONUAPLUS #### [address] Automated eosinophil %Ordere d By: Fernando Rosenberg on 10-02-2023 Eosinophils/100 WBC (Bld) 3.4 % Normal . [facility] Comment on above: Performed By: #### A DDONUAPLUS #### [address] Automated eosinophil countOr dered By: Fernando Rosenberg on 10-02-2023 Eosinophils (Bld) [#/Vol] 0.2 10*3/uL Normal 0.0-0.45 [facility] Comment on above: Performed By: #### A DDONUAPLUS #### [address] Automated monocyte %Ordered By: Fernando Rosenberg on 10-02-2023 Monocytes/100 WBC (Bld) 6.4 % Normal . [facility] Comment on above: Performed By: #### A DDONUAPLUS #### [facility] [address] Automated neutrophil %Ordere d By: Fernando Rosenberg on 10-02-2023 Neutrophils/100 WBC (Bld) 46.2 % Normal . [facility] Comment on above: Performed By: #### A DDONUAPLUS #### [address] Basic Metabolic Panelon 09-14 Creatinine Clr Calc Pharmacy 60.65 Normal [facility] Comment on above: Result Comment: PERF ORMED BY: [place] [address] PATHOLOGIST DIGITAL HARDWARE DESIGN ENGINEER ARIC BUTLER M.D. Performed By: #### A DDONUAPLUS #### [address] GFR/1.73 sq M.predicted MDRD (S/P/Bld) [Vol rate/Area] 41.013 mL/min/{1.73_m2} Normal [facility] Comment on above: Performed By: #### A DDONUAPLUS #### [address] Calcium [Mass/volume] in Ser um or PlasmaOrdered By: Fernando Rosenberg on 10-02-2023 Calcium [Mass/Vol] 9.0 mg/dL Normal 8.6-10.3 [facility] Comment on above: Performed By: #### A DDONUAPLUS #### [address] Capillary blood glucose timmy urement by glucometer (mass/volume)Ordered By: Fernando Rosenberg on 10-02-2023 Glucose [Mass/Vol] 93 mg/dL Normal [facility] Comment on above: Random Glucose Refer ence Range is dependent on time and content of last meal. Glucose of more than 200 mg/dL in a nonstressed, ambulatory subject supports the diagnosis of Diabetes Mellitus. Result Comment: [facility] Glucose Reference Range is dependent on time and content of last meal. Glucose of more than 200 mg/dL in a nonstressed, ambulatory subject supports the diagnosis of Diabetes Mellitus. PERFORMED BY: [place] [address] PATHOLOGIST DIGITAL HARDWARE DESIGN ENGINEER ARIC BUTLER M.D. Performed By: #### P MYLES CAMILOUAPLUS #### [address] Carbon dioxide, total [Moles /volume] in Serum or PlasmaOrdered By: Fernando Rosenberg on 10-02-2023 CO2 [Moles/Vol] 26.9 mmol/L Normal 21.0-31.0 [facility] Comment on above: Performed By: #### A DDONUAPLUS #### [place] [address] [place] Chloride [Moles/volume] in S brunilda or PlasmaOrdered By: Fernando Rosenberg on 10-02-2023 Chloride [Moles/Vol] 110 mmol/L High 98-107 [facility] Comment on above: Performed By: #### A DDONUAPLUS #### [address] Complete Blood Count Auto Di ffon 10-02-2023 Mean Corpuscular HGB Conc 33.2 g/dL Normal 32.0-35.0 [facility] Comment on above: Performed By: #### A DDONUAPLUS #### [place] [address] [place] NRBC% 0.0 /100{WBC} Normal 0-0.5 [facility] Comment on above: Performed By: #### A DDONUAPLUS #### [place] [address] [place] Creatinine [Mass/volume] in Serum or PlasmaOrdered By: Fernando Rosenberg on 10-02-2023 Creatinine [Mass/Vol] 1.52 mg/dL Significan t change up 0.60-1.20 [facility] Comment on above: Delta: 2.27 on 09/30-0758 Performed By: #### A DDONUAPLUS #### [facility] [address] Erythrocyte distribution wid th [Ratio] by Automated countOrdered By: Fernando Rosenberg on 10-02-2023 Erythrocyte distribution width (RBC) [Ratio] 14.3 % Normal 11.9-15.3 [facility] Comment on above: Performed By: #### A DDONUAPLUS #### [place] [address] [place] Erythrocytes [#/volume] in B lood by Automated countOrdered By: Fernando Rosenberg on 10-02-2023 RBC (Bld) [#/Vol] 3.47 10*6/uL Low 3.60-5.00 [facility] Comment on above: Performed By: #### A DDONUAPLUS #### [address] Glucose Poct Glucometerson 0 10-02-2023 Glucose [Mass/Vol] 87 mg/dL Normal [facility] Comment on above: Result Comment: [place] [facility] Glucose Reference Range is dependent on time and content of last meal. Glucose of more than 200 mg/dL in a nonstressed, ambulatory subject supports the diagnosis of Diabetes Mellitus. PERFORMED BY: [place] [address] PATHOLOGIST DIGITAL HARDWARE DESIGN ENGINEER ARIC BUTLER M.D. Performed By: #### A DDONUAPLUS #### [place] [address] [place] Glucose [Mass/volume] in Ser um or PlasmaOrdered By: Fernando Rosenberg on 10-02-2023 Glucose [Mass/Vol] 85 mg/dL Normal 70-100 [facility] Comment on above: ADA recommended refe rence rangeRandom Glucose Reference Range is dependent on time and content of last meal. Glucose of more than 200 mg/dL in a nonstressed, ambulatory subject supports the diagnosis of Diabetes Mellitus. Result Comment: [facility] Glucose Reference Range is dependent on time and content of last meal. Glucose of more than 200 mg/dL in a nonstressed, ambulatory subject supports the diagnosis of Diabetes Mellitus. ADA recommended reference range Performed By: #### A DDONUAPLUS #### [address] Hematocrit [Volume Fraction] of Blood by Automated countOrdered By: Fernando Rosenberg on 10-02-2023 Hematocrit (Bld) [Volume fraction] 31.5 % Low 34.0-46.4 [facility] Comment on above: Performed By: #### A DDONUAPLUS #### [address] Hemoglobin [Mass/volume] in BloodOrdered By: Fernando Rosenberg on 10-02-2023 Hemoglobin (Bld) [Mass/Vol] 10.4 g/dL Low 11.8-15.4 [facility] Comment on above: Performed By: #### A DDONUAPLUS #### [address] Leukocytes [#/volume] correc joaquin for nucleated erythrocytes in Blood by Automated counOrdered By: Fernando Rosenberg on 10-02-2023 WBC corrected for nucl RBC Auto (Bld) [#/Vol] 4.8 10*3/uL 3.8-11.6 [facility] Leukocytes [#/volume] in Blo od by Automated countOrdered By: Fernando Rosenberg on 10-02-2023 WBC (Bld) [#/Vol] 4.8 10*3/uL Normal 3.8-11.6 [facility] Comment on above: Performed By: #### A DDONUAPLUS #### [address] Lymphocytes [#/volume] in Bl ood by Automated countOrdered By: Fernando Rosenberg on 10-02-2023 Lymphocytes (Bld) [#/Vol] 2.1 10*3/uL Normal 1.00-4.8 [facility] Comment on above: Performed By: #### A DDONUAPLUS #### [address] Lymphocytes/100 leukocytes i n Blood by Automated countOrdered By: Fernando Rosenberg on 10-02-2023 Lymphocytes/100 WBC (Bld) 43.2 % Normal . [facility] Comment on above: Performed By: #### A DDONUAPLUS #### [address] MCH [Entitic mass] by Automa joaquin countOrdered By: Fernando Rosenberg on 10-02-2023 MCH (RBC) [Entitic mass] 30.1 pg Normal 24.7-34.3 [facility] Comment on above: Performed By: #### A DDONUAPLUS #### [address] MCHC Auto (RBC) [Mass/Vol]Or dered By: Fernando Rosenberg on 10-02-2023 MCHC (RBC) [Mass/Vol] 33.2 g/dL 32.0-35.0 [facility] MCV [Entitic volume] by Auto mated countOrdered By: Fernando Rosenberg on 10-02-2023 MCV (RBC) [Entitic vol] 90.7 fL Normal 80-100 [facility] Comment on above: Performed By: #### A DDONUAPLUS #### [address] Neutrophils [#/volume] in Bl ood by Automated countOrdered By: Fernando Rosenberg on 10-02-2023 Neutrophils (Bld) [#/Vol] 2.2 10*3/uL Normal 1.8-7.7 [facility] Comment on above: Performed By: #### A DDONUAPLUS #### [address] No Panel InformationOrdered By: Fernando Rosenberg on 10-02-2023 Estimated GFR (CKD-EPI) 41.013 mL/Min [facility] Creatinine Clearance (Chem 60.65 [facility] Nucleated erythrocytes [Pres ence] in Blood by Automated countOrdered By: Fernando Rosenberg on 10-02-2023 Nucleated RBC Auto Ql (Bld) 0.0 /100{WBC} 0-0.5 [facility] Platelet mean volume [Entiti c volume] in Blood by Automated countOrdered By: Fernando Rosenberg on 10-02-2023 Platelet mean volume (Bld) [Entitic vol] 9.2 fL Normal 6.3-10.7 [facility] Comment on above: Performed By: #### A DDONUAPLUS #### [facility] [address] [place] [address] [place] Platelets [#/volume] in Bloo d by Automated countOrdered By: Fernando Rosenberg on 10-02-2023 Platelets (Bld) [#/Vol] 230 10*3/uL Normal 150-450 [facility] Comment on above: Performed By: #### A DDONUAPLUS #### [facility] [address] [place] [address] [place] Potassium [Moles/volume] in Serum or PlasmaOrdered By: Fernando Rosenberg on 10-02-2023 Potassium [Moles/Vol] 4.5 mmol/L Normal 3.5-5.1 [facility] Comment on above: Performed By: #### A DDONUAPLUS #### [facility] [address] [place] [address] [place] Serum or plasma anion gap de terminationOrdered By: Fernando Rosenberg on 10-02-2023 Anion gap [Moles/Vol] 9.6 mmol/L Normal 6.0-15.0 [facility] Comment on above: Performed By: #### A DDONUAPLUS #### [facility] [address] [place] [address] [place] Sodium [Moles/volume] in Ser um or PlasmaOrdered By: Fernando Rosenberg on 10-02-2023 Sodium [Moles/Vol] 142 mmol/L Normal 136-145 [facility] Comment on above: Performed By: #### A DDONUAPLUS #### [facility] [address] Urea nitrogen [Mass/volume] in Serum or PlasmaOrdered By: Fernando Rosenberg on 10-02-2023 Urea nitrogen [Mass/Vol] 34 mg/dL High 7-25 [facility] Comment on above: Performed By: #### A DDONUAPLUS #### [facility] [address] [place] [address] [place] Activated partial thrombopla stin time (aPTT) in platelet poor plasma by coagulation aOrdered By: Alma Deng on 10-01-2023 aPTT Coag (PPP) [Time] 30.1 s 25.1-36.5 [facility] Comment on above: A hematocrit value g reater than 55% may lead to inaccurate results in coagulation testing. Patients having hematocrit values >55% require a special collection tube for coagulation studies. Please contact the laboratory at [phone] for redraw instructions. Alanine aminotransferase [En zymatic activity/volume] in Serum or PlasmaOrdered By: Alma Deng on 10-01-2023 ALT [Catalytic activity/Vol] 19 U/L Normal 7-52 [facility] Comment on above: Order Comment: Name Collection Type:: Other Performed By: #### A DDONUAPLUS #### [place] [address] [place] Albumin [Mass/volume] in Ser um or Plasma by Bromocresol green (BCG) dye binding methoOrdered By: Alma Deng on 10-01-2023 Albumin BCG dye [Mass/Vol] 3.9 g/dL 3.5-5.7 [facility] Alkaline phosphatase [Enzyma tic activity/volume] in Serum or PlasmaOrdered By: Alma Deng on 10-01-2023 ALP [Catalytic activity/Vol] 56 U/L Normal 34-104 [facility] Comment on above: Order Comment: Name Collection Type:: Other Performed By: #### A DDONUAPLUS #### [address] Aspartate aminotransferase [ Enzymatic activity/volume] in Serum or PlasmaOrdered By: Alma Barrazabonnie on 10-01-2023 AST [Catalytic activity/Vol] 29 U/L Normal 13-39 [facility] Comment on above: Order Comment: Name Collection Type:: Other Performed By: #### A DDONUAPLUS #### [facility] [address] Bacteria [Presence] in Urine by AutomatedOrdered By: Alma Barrazabonnie on 10-01-2023 Bacteria Auto Ql (U) None seen [HPF] None Seen [facility] Bilirubin Test strip Ql (U)O rdered By: Alma Deng on 10-01-2023 Bilirubin Ql (U) Negative Negative [facility] Bilirubin.total [Mass/volume ] in Serum or PlasmaOrdered By: Alma Barrazabonnie on 10-01-2023 Bilirubin [Mass/Vol] 0.3 mg/dL Normal 0.3-1.0 [facility] Comment on above: Order Comment: Name Collection Type:: Other Performed By: #### A DDONUAPLUS #### [address] Color of Urine by AutoOrdere d By: Alma Barrazabonnie on 10-01-2023 Color (U) Colorless Normal Yellow [facility] Comment on above: Order Comment: Name Collection Type:: Other Performed By: #### A DDONUAPLUS #### [address] Comprehensive Metabolic Pane pillo 10-01-2023 Albumin [Mass/Vol] 3.9 g/dL Normal 3.5-5.7 [facility] Comment on above: Order Comment: Name Collection Type:: Other Performed By: #### A DDONUAPLUS #### [address] Anion gap [Moles/Vol] 10.8 mmol/L Normal 6.0-15.0 [facility] Comment on above: Order Comment: Name Collection Type:: Other Performed By: #### A DDONUAPLUS #### [address] Calcium [Mass/Vol] 8.8 mg/dL Normal 8.6-10.3 [facility] Comment on above: Order Comment: Name Collection Type:: Other Performed By: #### A DDONUAPLUS #### [address] Chloride [Moles/Vol] 110 mmol/L High 98-107 [facility] Comment on above: Order Comment: Name Collection Type:: Other Performed By: #### A DDONUAPLUS #### [address] CO2 [Moles/Vol] 24.1 mmol/L Normal 21.0-31.0 [facility] Comment on above: Order Comment: Name Collection Type:: Other Performed By: #### A DDONUAPLUS #### [place] [address] [place] Creatinine [Mass/Vol] 2.27 mg/dL High 0.60-1.20 [facility] Comment on above: Order Comment: Name Collection Type:: Other Performed By: #### A DDONUAPLUS #### [place] [address] [place] Creatinine Clr Calc Pharmacy 40.81 Normal [facility] Comment on above: Order Comment: Name Collection Type:: Other Result Comment: PERF ORMED BY: [place] [address] PATHOLOGIST DIGITAL HARDWARE DESIGN ENGINEER ARIC BUTLER M.D. Performed By: #### A DDONUAPLUS #### [place] [address] [place] GFR/1.73 sq M.predicted MDRD (S/P/Bld) [Vol rate/Area] 25.346 mL/min/{1.73_m2} Normal [facility] Comment on above: Order Comment: Name Collection Type:: Other Performed By: #### A DDONUAPLUS #### [place] [address] [place] Glucose [Mass/Vol] 120 mg/dL High 70-100 [facility] Comment on above: Order Comment: Name Collection Type:: Other Result Comment: [place] Glucose Reference Range is dependent on time and content of last meal. Glucose of more than 200 mg/dL in a nonstressed, ambulatory subject supports the diagnosis of Diabetes Mellitus. ADA recommended reference range Performed By: #### A DDONUAPLUS #### [address] Potassium [Moles/Vol] 3.9 mmol/L Normal 3.5-5.1 [facility] Comment on above: Order Comment: Name Collection Type:: Other Performed By: #### A DDONUAPLUS #### [address] Sodium [Moles/Vol] 141 mmol/L Normal 136-145 [facility] Comment on above: Order Comment: Name Collection Type:: Other Performed By: #### A DDONUAPLUS #### [place] [address] [place] Urea nitrogen [Mass/Vol] 43 mg/dL High 7-25 [facility] Comment on above: Order Comment: Name Collection Type:: Other Performed By: #### A DDONUAPLUS #### [address] Creatinine [Mass/volume] in UrineOrdered By: Alma Deng on 10-01-2023 Creatinine (U) [Mass/Vol] 65.00 mg/dL [facility] Comment on above: No reference range e stablished Creatinine, Urine (Random)on 10-01-2023 Creatinine, Urine (Random) 65.00 mg/dL Normal [facility] Comment on above: Result Comment: No r eference range established PERFORMED BY: [place] [address] PATHOLOGIST D[employer]ITAL HARDWARE DESIGN ENGINEER ARIC BUTLER M.D. Performed By: #### U CREA, TAYLOR, UEOS #### [place] [address] [place] Dipstick and Microscopicon 0 10-01-2023 Bacteria,Urine None Seen Normal None Seen [facility] Comment on above: Order Comment: Name Collection Type:: Other Performed By: #### A DDONUAPLUS #### [place] [address] [place] Bilirubin,Urine Negative Normal Negative [facility] Comment on above: Order Comment: Name Collection Type:: Other Performed By: #### A DDONUAPLUS #### [address] Glucose Ql (U) Normal Normal Normal [facility] Comment on above: Order Comment: Name Collection Type:: Other Performed By: #### A DDONUAPLUS #### [place] [address] [place] Hyaline Casts,Urine 0-8 Normal 0-8 [facility] Comment on above: Order Comment: Name Collection Type:: Other Performed By: #### A DDONUAPLUS #### [place] [address] [place] Mucus,Urine Rare Normal [facility] Comment on above: Order Comment: Name Collection Type:: Other Result Comment: PERF ORMED BY: [place] [address] PATHOLOGIST D[employer]ITAL HARDWARE DESIGN ENGINEER ARIC BUTLER M.D. Performed By: #### A DDONUAPLUS #### [place] [address] [place] Nitrite,Urine Negative Normal Negative [facility] Comment on above: Order Comment: Name Collection Type:: Other Performed By: #### A DDONUAPLUS #### [place] [address] [place] Occult Blood,Urine Negative Normal Negative [facility] Comment on above: Order Comment: Name Collection Type:: Other Result Comment: PERF ORMED BY: [place] [address] PATHOLOGIST D[employer]ITAL HARDWARE DESIGN ENGINEER ARIC BUTLER M.D. Performed By: #### A DDONUAPLUS #### [place] [address] [place] Protein,Urine Negative Normal Negative [facility] Comment on above: Order Comment: Name Collection Type:: Other Performed By: #### A DDONUAPLUS #### [address] RBC,Urine None Seen Normal 0-4 [facility] Comment on above: Order Comment: Name Collection Type:: Other Performed By: #### A DDONUAPLUS #### [address] Specificy [place],Urine 1.009 Normal 1.001-1.030 [facility] Comment on above: Order Comment: Name Collection Type:: Other Performed By: #### A DDONUAPLUS #### [address] Urobilinogen,Urine Normal Normal Normal [facility] Comment on above: Order Comment: Name Collection Type:: Other Performed By: #### A DDONUAPLUS #### [address] WBC,Urine 3-4 Normal 0-4 [facility] Comment on above: Order Comment: Name Collection Type:: Other Performed By: #### A DDONUAPLUS #### [address] Eosinophil,Urineon 4 Eosinophil,Urine 0 % Normal 0-1 [facility] Comment on above: Result Comment: PERF ORMED BY: [place] [address] PATHOLOGIST DIGITAL HARDWARE DESIGN ENGINEER ARIC BUTLER M.D. Performed By: #### G LULS #### Point of Care testing , Eosinophils detection in uri ne sediment by Nava stainOrdered By: Alma Deng on 10-01-2023 Eosinophils Nava stain Ql (Urine sed) 0 % 0-1 [facility] Epithelial cells.squamous [# /area] in Urine sediment by Automated countOrdered By: Alma Deng on 10-01-2023 Epithelial cells.squamous Auto (Urine sed) [#/Area] N/A [facility] Erythrocytes [#/area] in Uri ne sediment by Automated countOrdered By: Alma Sowmya on 10-01-2023 RBC Auto (Urine sed) [#/Area] None seen [HPF] 0-4 [facility] Glucose Poct Glucometerson 0 10-01-2023 Commemt1 Glu2: Cleaned Meter Normal [facility] Comment on above: Result Comment: PERF ORMED BY: [place] [address] PATHOLOGIST D[employer]ITAL HARDWARE DESIGN ENGINEER ARIC BUTLER M.D. Performed By: #### A DDONUAPLUS #### [address] Glucose [Mass/Vol] 81 mg/dL Normal [facility] Comment on above: Result Comment: [place] Glucose Reference Range is dependent on time and content of last meal. Glucose of more than 200 mg/dL in a nonstressed, ambulatory subject supports the diagnosis of Diabetes Mellitus. Performed By: #### A DDONUAPLUS #### [facility] [address] [place] [address] Glucose [Mass/Vol] 83 mg/dL Normal [facility] Comment on above: Result Comment: [place] Glucose Reference Range is dependent on time and content of last meal. Glucose of more than 200 mg/dL in a nonstressed, ambulatory subject supports the diagnosis of Diabetes Mellitus. PERFORMED BY: [place] [address] PATHOLOGIST DIGITAL HARDWARE DESIGN ENGINEER ARIC BUTLER M.D. Performed By: #### G LULS #### Point of Care testing , Glucose [Mass/Vol] 117 mg/dL Normal [facility] Comment on above: Result Comment: [place] Glucose Reference Range is dependent on time and content of last meal. Glucose of more than 200 mg/dL in a nonstressed, ambulatory subject supports the diagnosis of Diabetes Mellitus. PERFORMED BY: [place] [address] PATHOLOGIST DIGITAL HARDWARE DESIGN ENGINEER ARIC BUTLER M.D. Performed By: #### G LULS #### Point of Care testing , Glucose [Mass/Vol] 83 mg/dL Normal [facility] Comment on above: Result Comment: [facility] Glucose Reference Range is dependent on time and content of last meal. Glucose of more than 200 mg/dL in a nonstressed, ambulatory subject supports the diagnosis of Diabetes Mellitus. PERFORMED BY: [place] [address] PATHOLOGIST DIGITAL HARDWARE DESIGN ENGINEER ARIC BUTELR M.D. Performed By: #### G PATRICA #### Point of Care testing , Glucose [Mass/volume] in Uri ne by Test stripOrdered By: Alma Deng on 10-01-2023 Glucose Test strip (U) [Mass/Vol] Normal mg/dL Normal [facility] Hemoglobin Test strip Ql (U) Ordered By: Alma Deng on 10-01-2023 Hemoglobin Ql (U) Negative Negative [facility] Hemogram CBC Without Diffon 10-01-2023 Erythrocyte distribution width (RBC) [Ratio] 14.7 % Normal 11.9-15.3 [facility] Comment on above: Performed By: #### A DDONUAPLUS #### [address] Hematocrit (Bld) [Volume fraction] 32.9 % Low 34.0-46.4 [facility] Comment on above: Performed By: #### A DDONUAPLUS #### [address] Hemoglobin (Bld) [Mass/Vol] 11.0 g/dL Low 11.8-15.4 [facility] Comment on above: Performed By: #### A DDONUAPLUS #### [address] MCH (RBC) [Entitic mass] 30.1 pg Normal 24.7-34.3 [facility] Comment on above: Performed By: #### A DDONUAPLUS #### [address] MCV (RBC) [Entitic vol] 89.6 fL Normal 80-100 [facility] Comment on above: Performed By: #### A DDONUAPLUS #### [address] Mean Corpuscular HGB Conc 33.6 g/dL Normal 32.0-35.0 [facility] Comment on above: Performed By: #### A DDONUAPLUS #### [address] Platelet mean volume (Bld) [Entitic vol] 10.5 fL Normal 6.3-10.7 [facility] Comment on above: Result Comment: PERF ORMED BY: [place] [address] PATHOLOGIST D[employer]ITAL HARDWARE DESIGN ENGINEER ARIC BUTLER M.D. Performed By: #### A DDONUAPLUS #### [address] Platelets (Bld) [#/Vol] 320 10*3/uL Normal 150-450 [facility] Comment on above: Performed By: #### A DDONUAPLUS #### [address] RBC (Bld) [#/Vol] 3.67 10*6/uL Normal 3.60-5.00 [facility] Comment on above: Performed By: #### A DDONUAPLUS #### [address] WBC (Bld) [#/Vol] 5.0 10*3/uL Normal 3.8-11.6 [facility] Comment on above: Performed By: #### A DDONUAPLUS #### [place] [address] [place] Hyaline casts [#/area] in Ur ine sediment by Automated countOrdered By: Alma Deng on 10-01-2023 Hyaline casts Auto (Urine sed) [#/Area] 0-8 [LPF] 0-8 [facility] INR in Platelet poor plasma by Coagulation assayOrdered By: Alma Deng on 10-01-2023 INR Coag (PPP) [Relative time] 1.1 {INR} Normal [facility] Comment on above: INR Therapeutic Rang e [...] 4.5 Performed By: #### A DDONUAPLUS #### [place] [address] [place] Ketones [Presence] in Urine by Test stripOrdered By: Alma Deng on 10-01-2023 Ketones Ql (U) Negative Normal Negative [facility] Comment on above: Order Comment: Name Collection Type:: Other Performed By: #### A DDONUAPLUS #### [place] [address] [place] Leukocyte esterase [Presence ] in Urine by Test stripOrdered By: Alma Deng on 10-01-2023 Leukocyte esterase Test strip Ql (U) 1+ High Negative [facility] Comment on above: Order Comment: Name Collection Type:: Other Performed By: #### A DDONUAPLUS #### [place] [address] [place] Leukocytes [#/area] in Urine sediment by Automated countOrdered By: Alma Deng on 10-01-2023 WBC Auto (Urine sed) [#/Area] 3-4 [HPF] 0-4 [facility] Mucus [Presence] in Urine by AutomatedOrdered By: Alma Deng on 10-01-2023 Mucus Auto Ql (U) Rare [LPF] [facility] Nitrite Test strip Ql (U)Ord ered By: Alma Deng on 10-01-2023 Nitrite Ql (U) Negative Negative [facility] No Panel InformationOrdered By: Fernando Rosenberg on 10-01-2023 Bedside Glucose Comment Glu2: cleaned meter [facility] Partial Thromboplastin Timeo n 10-01-2023 aPTT Coag (Bld) [Time] 30.1 s Normal 25.1-36.5 [facility] Comment on above: Order Comment: Name Collection Type:: Clean-Voided Midstream Result Comment: A he matocrit value greater than 55% may lead to inaccurate results in coagulation testing. Patients having hematocrit values >55% require a special collection tube for coagulation studies. Please contact the laboratory at [phone] for redraw instructions. PERFORMED BY: [place] [address] PATHOLOGIST DIGITAL HARDWARE DESIGN ENGINEER ARIC BUTLER M.D. Performed By: #### P JOSH CAMILOPLUS #### [facility] [address] [place] [address] Protein Test strip (U) [Mass /Vol]Ordered By: Alma Christibonnie on 10-01-2023 Protein (U) [Mass/Vol] Negative Negative [facility] Protein [Mass/volume] in Ser um or PlasmaOrdered By: Alma Christibonnie on 10-01-2023 Protein [Mass/Vol] 6.1 g/dL Low 6.4-8.9 [facility] Comment on above: Order Comment: Name Collection Type:: Other Performed By: #### A DDONUAPLUS #### [facility] [address] [place] [address] Prothrombin time (PT)Ordered By: Mayratania Christibonnie on 10-01-2023 PT Coag (PPP) [Time] 12.2 s Normal 9.0-12.9 [facility] Comment on above: A hematocrit value g reater than 55% may lead to inaccurate results in coagulation testing. Patients having hematocrit values >55% require a special collection tube for coagulation studies. Please contact the laboratory at [phone] for redraw instructions. Order Comment: Name Collection Type:: Other Result Comment: A he matocrit value greater than 55% may lead to inaccurate results in coagulation testing. Patients having hematocrit values >55% require a special collection tube for coagulation studies. Please contact the laboratory at [phone] for redraw instructions. Performed By: #### A DDONUAPLUS #### [address] Serum globulin measurement b y calculation (mass/volume)Ordered By: Alma Deng on 10-01-2023 Globulin (S) [Mass/Vol] 2.2 g/dL Normal [facility] Comment on above: Order Comment: Name Collection Type:: Other Performed By: #### A DDONUAPLUS #### [address] Serum or plasma albumin/glob ulin mass ratioOrdered By: Alma Deng on 10-01-2023 Albumin/Globulin [Mass ratio] 1.8 {ratio} Normal [facility] Comment on above: Order Comment: Name Collection Type:: Other Performed By: #### A DDONUAPLUS #### [address] Sodium [Moles/volume] in Uri neOrdered By: Alma Huyuche on 10-01-2023 Sodium (U) [Moles/Vol] 54.0 mmol/L Normal [facility] Comment on above: No reference range e stablished Result Comment: No r eference range established Performed By: #### U CREA, URNA, UEOS #### [address] Specific gravity Test strip (U) [Rel density]Ordered By: Alma Deng on 10-01-2023 Specific gravity (U) [Rel density] 1.009 1.001-1.030 [facility] Urine appearanceOrdered By: Alma Deng on 10-01-2023 Appearance (U) Clear Normal Clear [facility] Comment on above: Order Comment: Name Collection Type:: Other Performed By: #### A DDONUAPLUS #### [facility] [address] [place] [address] [facility] Urobilinogen Test strip (U) [Mass/Vol]Ordered By: Mayratania Huyuche on 10-01-2023 Urobilinogen (U) [Mass/Vol] Normal mg/dL Normal [facility] pH of Urine by Test stripOrd ered By: Alma Barrazabonnie on 10-01-2023 pH (U) 5.5 [pH] Normal 5.0-9.0 [facility] Comment on above: Order Comment: Name Collection Type:: Other Performed By: #### A DDONUAPLUS #### [facility] [address] [place] [id number] [facility] 36on 09-20-2023 36 Patient's insurance denied a carotid duplex again. Is there anything else you'd like me to do? :( Normal [facility] Office Visiton 09-11-2023 Follow-up visit [id number] Nithin Humphreys 1970 F Date Provider Department Center 09/11/2023 [id number] [facility] No family history on file Level of Service:30861 [place] OFFICE/OUTPATIENT ESTABLISHED MOD MDM 30 MIN Normal [facility] Albumin [Mass/volume] in Ser um or Plasma by Bromocresol green (BCG) dye binding methoOrdered By: Halle Mac on 08-10-2023 Albumin BCG dye [Mass/Vol] 4.0 g/dL 3.5-5.7 [facility] Automated erythrocytes count in urine sediment (number/area)Ordered By: Halle Mac on 08-10-2023 RBC Auto (Urine sed) [#/Area] None seen [HPF] 0-4 [facility] Automated leukocytes count i n urine sediment (number/area)Ordered By: Halle Mac on 08-10-2023 WBC Auto (Urine sed) [#/Area] 3-4 [HPF] 0-4 [facility] Automated urine color determ inationOrdered By: Halle Mac on 08-10-2023 Color (U) Yellow Normal Yellow [facility] Comment on above: Order Comment: Name Collection Type:: Clean-Voided Midstream Performed By: #### P ROCEDEL ADDONUAPLUS #### [facility] [address] Bilirubin Test strip Ql (U)O rdered By: Halle Mac on 08-10-2023 Bilirubin Ql (U) Negative Negative [facility] Calcium [Mass/volume] in Ser um or PlasmaOrdered By: Halle Mac on 08-10-2023 Calcium [Mass/Vol] 9.3 mg/dL Normal 8.6-10.3 [facility] Comment on above: Performed By: #### G LULS #### Point of Care testing , Carbon dioxide, total [Moles /volume] in Serum or PlasmaOrdered By: Halle Mac on 08-10-2023 CO2 [Moles/Vol] 24.8 mmol/L Normal 21.0-31.0 [facility] Comment on above: Performed By: #### G LULS #### Point of Care testing , Chloride [Moles/volume] in S brunilda or PlasmaOrdered By: Halle Mac on 08-10-2023 Chloride [Moles/Vol] 110 mmol/L High 98-107 [facility] Comment on above: Performed By: #### G LULS #### Point of Care testing , Creatinine [Mass/volume] in Serum or PlasmaOrdered By: Halle Mac on 08-10-2023 Creatinine [Mass/Vol] 1.59 mg/dL High 0.60-1.20 [facility] Comment on above: Performed By: #### G LULS #### Point of Care testing , Creatinine [Mass/volume] in UrineOrdered By: Halle Mac on 08-10-2023 Creatinine (U) [Mass/Vol] 92.0 mg/dL [facility] Comment on above: No reference range e stablished Dipstick and Microscopicon 0 08-10-2023 Appearance (U) Clear Normal Clear [facility] Comment on above: Order Comment: Name Collection Type:: Clean-Voided Midstream Performed By: #### P ROCRERAT, ADDONUAPLUS #### [facility] [address] [place] [address] Bacteria,Urine None Seen Normal None Seen [facility] Comment on above: Order Comment: Name Collection Type:: Clean-Voided Midstream Performed By: #### P ROCRERAT, ADDONUAPLUS #### [address] Bilirubin,Urine Negative Normal Negative [facility] Comment on above: Order Comment: Name Collection Type:: Clean-Voided Midstream Performed By: #### P ROCRERAT, ADDONUAPLUS #### [address] Glucose Ql (U) Normal Normal Normal [facility] Comment on above: Order Comment: Name Collection Type:: Clean-Voided Midstream Performed By: #### P ROCRERAT, ADDONUAPLUS #### [address] Hyaline Casts,Urine None Seen Normal 0-8 [facility] Comment on above: Order Comment: Name Collection Type:: Clean-Voided Midstream Result Comment: PERF ORMED BY: [place] [address] PATHOLOGIST DIGITAL HARDWARE DESIGN ENGINEER ARIC BUTLER M.D. Performed By: #### P ROCRERAT, ADDONUAPLUS #### [address] Ketones Ql (U) Negative Normal Negative [facility] Comment on above: Order Comment: Name Collection Type:: Clean-Voided Midstream Performed By: #### P ROCRERAT, ADDONUAPLUS #### [address] Leukocyte esterase Test strip Ql (U) 2+ High Negative [facility] Comment on above: Order Comment: Name Collection Type:: Clean-Voided Midstream Performed By: #### P ROCRERAT, ADDONUAPLUS #### [place] [address] [place] Nitrite,Urine Negative Normal Negative [facility] Comment on above: Order Comment: Name Collection Type:: Clean-Voided Midstream Performed By: #### P ROCRERAT, ADDONUAPLUS #### [address] Occult Blood,Urine Negative Normal Negative [facility] Comment on above: Order Comment: Name Collection Type:: Clean-Voided Midstream Result Comment: PERF ORMED BY: [place] [address] PATHOLOGIST DIGITAL HARDWARE DESIGN ENGINEER ARIC BUTLER M.D. Performed By: #### P ROCRERAT, ADDONUAPLUS #### [address] Protein,Urine Negative Normal Negative [facility] Comment on above: Order Comment: Name Collection Type:: Clean-Voided Midstream Performed By: #### P ROCRERAT, ADDONUAPLUS #### [address] RBC,Urine None Seen Normal 0-4 [facility] Comment on above: Order Comment: Name Collection Type:: Clean-Voided Midstream Performed By: #### P ROCRERAT, ADDONUAPLUS #### [address] Specificy [place],Urine 1.015 Normal 1.001-1.030 [facility] Comment on above: Order Comment: Name Collection Type:: Clean-Voided Midstream Performed By: #### P ROCRERAT, ADDONUAPLUS #### [address] Squamous Epithelial Cell,Urine None Seen Normal 0-2 [facility] Comment on above: Order Comment: Name Collection Type:: Clean-Voided Midstream Performed By: #### P ROCRERAT, ADDONUAPLUS #### [address] Urobilinogen,Urine Normal Normal Normal [facility] Comment on above: Order Comment: Name Collection Type:: Clean-Voided Midstream Performed By: #### P ROCRERAT, ADDONUAPLUS #### [facility] [address] WBC,Urine 3-4 Normal 0-4 [facility] Comment on above: Order Comment: Name Collection Type:: Clean-Voided Midstream Performed By: #### P JOSH CAMILOPLUS #### [facility] [address] Erythrocyte distribution wid th [Ratio] by Automated countOrdered By: Halle Mac on 08-10-2023 Erythrocyte distribution width (RBC) [Ratio] 15.1 % Normal 11.9-15.3 [facility] Comment on above: Performed By: #### G LULS #### Point of Care testing , Erythrocytes [#/volume] in B lood by Automated countOrdered By: Halle Mac on 08-10-2023 RBC (Bld) [#/Vol] 3.89 10*6/uL Normal 3.60-5.00 [facility] Comment on above: Performed By: #### G LULS #### Point of Care testing , Ferritin [Mass/volume] in Se rum or PlasmaOrdered By: Halle Mac on 08-10-2023 Ferritin [Mass/Vol] 62.9 ng/mL Normal 11.0-306.8 [facility] Comment on above: Performed By: #### G LULS #### Point of Care testing , Folate [Mass/volume] in Seru m or PlasmaOrdered By: Halle Mac on 08-10-2023 Folate [Mass/Vol] 15.7 ng/mL >5.9 [facility] Comment on above: Folate reference ran ge: >5.9 ng/mlThe WHO technical consultation on folate and vitamin [id number] has determined that folate concentrations lessthan 4 ng/ml are considered deficient. Glucose [Mass/volume] in Ser um or PlasmaOrdered By: Halle Mac on 08-10-2023 Glucose [Mass/Vol] 94 mg/dL Normal 70-100 [facility] Comment on above: ADA recommended refe rence rangeRandom Glucose Reference Range is dependent on time and content of last meal. Glucose of more than 200 mg/dL in a nonstressed, ambulatory subject supports the diagnosis of Diabetes Mellitus. Result Comment: [facility] Glucose Reference Range is dependent on [...] (Bld) [Volume fraction] 35.0 % Normal 34.0-46.4 [facility] Comment on above: Performed By: #### G ROMIELS #### Point of Care testing , Hemoglobin [Mass/volume] in BloodOrdered By: Halle Mac on 08-10-2023 Hemoglobin (Bld) [Mass/Vol] 11.5 g/dL Low 11.8-15.4 [facility] Comment on above: Performed By: #### G ROMIELS #### Point of Care testing , Hemogram CBC Without Diffon 08-10-2023 Mean Corpuscular HGB Conc 32.9 g/dL Normal 32.0-35.0 [facility] Comment on above: Performed By: #### G ROMIELS #### Point of Care testing , WBC (Bld) [#/Vol] 4.0 10*3/uL Normal 3.8-11.6 [facility] Comment on above: Performed By: #### G ROMIELS #### Point of Care testing , Iron [Mass/volume] in Serum or PlasmaOrdered By: Halle Mac on 08-10-2023 Iron [Mass/Vol] 75 ug/dL Normal 50-212 [facility] Comment on above: Performed By: #### G LULS #### Point of Care testing , Iron and TIBC Profileon 07-16 % Iron Saturation 15.6 % Low 20-50 [facility] Comment on above: Performed By: #### G LULS #### Point of Care testing , Total Iron Binding Capacity 480 ug/dL High 255-450 [facility] Comment on above: Performed By: #### G LULS #### Point of Care testing , Iron binding capacity [Mass/ volume] in Serum or PlasmaOrdered By: Halle Mac on 08-10-2023 Iron binding capacity [Mass/Vol] 480 ug/dL High 255-450 [facility] Iron saturation [Mass Fracti on] in Serum or PlasmaOrdered By: Halle Mac on 08-10-2023 Iron saturation [Mass fraction] 15.6 % Low 20-50 [facility] Ketones Auto test strip (U) [Mass/Vol]Ordered By: Halle Mac on 08-10-2023 Ketones (U) [Mass/Vol] Negative Negative [facility] - UrinalysisOrder ed By: Halle Mac on 08-10-2023 Hyaline casts LM Ql (Urine sed) None seen [LPF] 0-8 [facility] Leukocytes [#/volume] correc joaquin for nucleated erythrocytes in Blood by Automated counOrdered By: Halle Mac on 08-10-2023 WBC corrected for nucl RBC Auto (Bld) [#/Vol] 4.0 10*3/uL 3.8-11.6 [facility] MCH [Entitic mass] by Automa joaquin countOrdered By: Halle Mac on 08-10-2023 MCH (RBC) [Entitic mass] 29.6 pg Normal 24.7-34.3 [facility] Comment on above: Performed By: #### G LULS #### Point of Care testing , MCHC Auto (RBC) [Mass/Vol]Or dered By: Halle Mac on 08-10-2023 MCHC (RBC) [Mass/Vol] 32.9 g/dL 32.0-35.0 [facility] MCV [Entitic volume] by Auto mated countOrdered By: Halle Mac on 08-10-2023 MCV (RBC) [Entitic vol] 90.0 fL Normal 80-100 [facility] Comment on above: Performed By: #### G LULS #### Point of Care testing , Magnesium [Mass/volume] in S brunilda or PlasmaOrdered By: Halle Mac on 08-10-2023 Magnesium [Mass/Vol] 1.9 mg/dL Normal 1.9-2.7 [facility] Comment on above: Performed By: #### G LULS #### Point of Care testing , Nitrite Test strip Ql (U)Ord ered By: Halle Mac on 08-10-2023 Nitrite Ql (U) Negative Negative [facility] No Panel InformationOrdered By: Halle Mac on 08-10-2023 Estimated GFR (CKD-EPI) 38.856 mL/Min [facility] Creatinine Clearance (Chem N/A [facility] Parathyrin.intact [Mass/volu me] in Serum or PlasmaOrdered By: Halle Mac on 08-10-2023 Parathyrin.intact [Mass/Vol] 38.7 pg/mL [facility] Parathyroid Hormone Intacton 08-10-2023 Parathyroid Hormone Intact 38.7 pg/mL Normal [facility] Comment on above: Result Comment: PERF ORMED BY: [facility] [address] [place] [address] PATHOLOGIST DIGITAL HARDWARE DESIGN ENGINEER ARIC BUTLER M.D. Performed By: #### G LULS #### Point of Care testing , Phosphate [Mass/volume] in S brunilda or PlasmaOrdered By: Halle Mac on 08-10-2023 Phosphate [Mass/Vol] 3.7 mg/dL Normal 2.5-4.5 [facility] Comment on above: Performed By: #### G LULS #### Point of Care testing , Platelet mean volume [Entiti c volume] in Blood by Automated countOrdered By: Halle Mac on 08-10-2023 Platelet mean volume (Bld) [Entitic vol] 9.8 fL Normal 6.3-10.7 [facility] Comment on above: Result Comment: PERF ORMED BY: [facility] [address] [place] [address] PATHOLOGIST DIGITAL HARDWARE DESIGN ENGINEER ARIC BUTLER M.D. Performed By: #### G LULS #### Point of Care testing , Platelets [#/volume] in Bloo d by Automated countOrdered By: Halle Mac on 08-10-2023 Platelets (Bld) [#/Vol] 217 10*3/uL Normal 150-450 [facility] Comment on above: Performed By: #### G LUBESSIE #### Point of Care testing , Potassium [Moles/volume] in Serum or PlasmaOrdered By: Halle Mac on 08-10-2023 Potassium [Moles/Vol] 4.5 mmol/L Normal 3.5-5.1 [facility] Comment on above: Performed By: #### G LUBESSIE #### Point of Care testing , Protein Auto test strip (U) [Mass/Vol]Ordered By: Halle Mac on 08-10-2023 Protein (U) [Mass/Vol] Negative Negative [facility] Protein Creat Ratio Ur Rando mon 08-10-2023 Creatinine, Urine (Random) 92.0 mg/dL Normal [facility] Comment on above: Result Comment: No r eference range established Performed By: #### P ROXANA CAMILOONUAPLUS #### [facility] [address] [place] [address] [place] Protein, Urine (Random) < 4 Normal 0-9 [facility] Comment on above: Performed By: #### P MYLES CAMILOUAPLUS #### [facility] [address] [place] [address] [place] Urine Protein/Creatinine Ratio Not performed Normal 0-200 [facility] Comment on above: Result Comment: PERF ORMED BY: [place] [address] PATHOLOGIST D[employer]ITAL HARDWARE DESIGN ENGINEER ARIC BUTLER M.D. Performed By: #### P JOSH CAMILOPLUS #### [facility] [address] [place] [address] [place] Protein [Mass/volume] in Uri neOrdered By: Halle Mac on 08-10-2023 Protein (U) [Mass/Vol] mg/dL 0-9 [facility] Renal Function Panelon 08-09 Albumin [Mass/Vol] 4.0 g/dL Normal 3.5-5.7 [facility] Comment on above: Performed By: #### G LULS #### Point of Care testing , GFR/1.73 sq M.predicted MDRD (S/P/Bld) [Vol rate/Area] 38.856 mL/min/{1.73_m2} Normal [facility] Comment on above: Performed By: #### G LULS #### Point of Care testing , Serum or plasma anion gap de terminationOrdered By: Halle Mac on 08-10-2023 Anion gap [Moles/Vol] 11.7 mmol/L Normal 6.0-15.0 [facility] Comment on above: Performed By: #### G LULS #### Point of Care testing , Sodium [Moles/volume] in Ser um or PlasmaOrdered By: Halle Mac on 08-10-2023 Sodium [Moles/Vol] 142 mmol/L Normal 136-145 [facility] Comment on above: Performed By: #### G LULS #### Point of Care testing , Specific gravity Auto test s trip (U) [Rel density]Ordered By: Halle Mac on 08-10-2023 Specific gravity (U) [Rel density] 1.015 1.001-1.030 [facility] Squamous epithelial cells de tection in urine sediment by light microscopyOrdered By: Halle Mac on 08-10-2023 Epithelial cells.squamous LM Ql (Urine sed) None seen [HPF] 0-2 [facility] Transferrin [Mass/volume] in Serum or PlasmaOrdered By: Halle Mac on 08-10-2023 Transferrin [Mass/Vol] 343 mg/dL Normal 203-362 [facility] Comment on above: Performed By: #### G LULS #### Point of Care testing , Urate [Mass/volume] in Serum or PlasmaOrdered By: Halle Mac on 08-10-2023 Urate [Mass/Vol] 8.6 mg/dL High 2.3-6.6 [facility] Comment on above: Performed By: #### G LULS #### Point of Care testing , Urea nitrogen [Mass/volume] in Serum or PlasmaOrdered By: Halle Mac on 08-10-2023 Urea nitrogen [Mass/Vol] 32 mg/dL High 7-25 [facility] Comment on above: Performed By: #### G PATRICA #### Point of Care testing , Urine bacteria detection by automated methodOrdered By: Halle Mac on 08-10-2023 Bacteria Auto Ql (U) None seen None Seen [facility] Urine clarity by refractomet ry automatedOrdered By: Halle Mac on 08-10-2023 Clarity Refractometry automated (U) Clear Clear [facility] Urine glucose measurement by automated test strip (mass/volume)Ordered By: Halle Mac on 08-10-2023 Glucose Auto test strip (U) [Mass/Vol] Normal mg/dL Normal [facility] Urine hemoglobin detection b y automated test stripOrdered By: Halle Mac on 08-10-2023 Hemoglobin Auto test strip Ql (U) Negative Negative [facility] Urine leukocyte esterase det ection by automated test stripOrdered By: Halle Mac on 08-10-2023 Leukocyte esterase Auto test strip Ql (U) 2+ High Negative [facility] Urine pH measurement by auto mated test stripOrdered By: Halle Mac on 08-10-2023 pH (U) 5.5 [pH] Normal 5.0-9.0 [facility] Comment on above: Order Comment: Name Collection Type:: Clean-Voided Midstream Performed By: #### P RAMOS CAMILO #### [address] Urine protein/creatinine rat ioOrdered By: Halle Mac on 08-10-2023 Protein/Creatinine (U) [Ratio] TNP [facility] Comment on above: Test not performed Urobilinogen Auto test strip (U) [Mass/Vol]Ordered By: Halle Mac on 08-10-2023 Urobilinogen (U) [Mass/Vol] Normal mg/dL Normal [facility] Vit. B12/Folate Profileon Folate 15.7 ng/mL Normal >5.9 [facility] Comment on above: Result Comment: Maria te reference range: >5.9 ng/ml The WHO technical consultation on folate and vitamin b12 deficiencies has determined that folate concentrations less than 4 ng/ml are considered deficient. Performed By: #### G LULS #### Point of Care testing , Vitamin B12 ser/plasOrdered By: Halle Mac on 08-10-2023 Cobalamin (Vitamin B12) [Mass/Vol] 164 pg/mL Low 180-914 [facility] Comment on above: Performed By: #### G LULS #### Point of Care testing , Vitamin D 25 Hydroxy Totalon 08-10-2023 Vitamin D 25 Hydroxy Total 22.4 ng/mL Low 30-100 [facility] Comment on above: Result Comment: AWAIS MIN D STATUS 25([place])VITAMIN D RANGE (ng/mL) Deficient <20 Insufficient 20 to <30 Sufficient 30 to 100 Reference: Nicole Almonte, Ed LI, et al. Evaluation,treatment, and prevention of vitamin D deficiency; an Endocrine Society clinical practice guideline. JCEM. 2010; 96(7):1911-30. PERFORMED BY: [facility] [address] [place] [address] PATHOLOGIST DIGITAL HARDWARE DESIGN ENGINEER ARIC BUTLER M.D. Performed By: #### G LULS #### Point of Care testing , Vitamin D+Metabolites [Mass/ volume] in Serum or PlasmaOrdered By: Halle Mac on 08-10-2023 Vitamin D+Metabolites [Mass/Vol] 22.4 ng/mL Low 30-100 [facility] Comment on above: VITAMIN D STATUS 25( [place])VITAMIN D RANGE (ng/mL) Deficient <20 Insufficient 20 to <30Sufficient 30 to 100Reference: Nicole Almonte, Ed LI, et al. Evaluation,treatment, and prevention of vitamin D deficiency; an Endocrine Society clinical practice guideline. JCEM. 2010; 96(7):1911-30. Valproate [Mass/volume] in S brunilda or PlasmaOrdered By: Fauzia Huffman on 06-19-2023 Valproate [Mass/Vol] 14.5 ug/mL 50.0-100.0 [facility] Comment on above: Last dose: - Valproic Acid (in house)on 0 06-19-2023 Valproic Acid (in house) 14.5 ug/mL Low 50.0-100.0 [facility] Comment on above: Result Comment: Last dose: - PERFORMED BY: [place] [address] PATHOLOGIST D[employer]ITAL HARDWARE DESIGN ENGINEER ARIC BUTLER M.D. Performed By: #### JOSH KINGPLUS #### [facility] [address] [place] [address] [place] Alanine aminotransferase [En zymatic activity/volume] in Serum or PlasmaOrdered By: Halle Mac on 05-17-2023 ALT [Catalytic activity/Vol] 16 U/L Normal 7-52 [facility] Comment on above: Order Comment: Name Collection Type:: Clean-Voided Midstream Performed By: #### P JOSH CAMILOPLUS #### [facility] [address] [place] [address] [place] Albumin [Mass/volume] in Ser um or Plasma by Bromocresol green (BCG) dye binding methoOrdered By: Halle Mac on 05-17-2023 Albumin BCG dye [Mass/Vol] 4.3 g/dL 3.5-5.7 [facility] Alkaline phosphatase [Enzyma tic activity/volume] in Serum or PlasmaOrdered By: Halle Mac on 05-17-2023 ALP [Catalytic activity/Vol] 61 U/L Normal 34-104 [facility] Comment on above: Order Comment: Name Collection Type:: Clean-Voided Midstream Performed By: #### P JOSH CAMILOPLUS #### [facility] [address] [place] [address] [place] Aspartate aminotransferase [ Enzymatic activity/volume] in Serum or PlasmaOrdered By: Halle Mac on 05-17-2023 AST [Catalytic activity/Vol] 23 U/L Normal 13-39 [facility] Comment on above: Order Comment: Name Collection Type:: Clean-Voided Midstream Performed By: #### P ROCREWESTON ADDONUAPLUS #### [facility] [address] Automated erythrocytes count in urine sediment (number/area)Ordered By: Halle Mac on 05-17-2023 RBC Auto (Urine sed) [#/Area] 3-4 [HPF] 0-4 [facility] Automated leukocytes count i n urine sediment (number/area)Ordered By: Halle Mac on 05-17-2023 WBC Auto (Urine sed) [#/Area] 10-19 [HPF] 0-4 [facility] Automated urine color determ inationOrdered By: Halle Mac on 05-17-2023 Color (U) Dark yellow Critically abnormal Yellow [facility] Comment on above: Order Comment: Reaso n for Exam Chronic kidney disease, stage 3b;Hypertensive nephropathy;Di Name Collection Type:: Clean-Voided Midstream Performed By: #### P ROXANA CAMILOONUAPLUS #### [address] Bilirubin Test strip Ql (U)O rdered By: Halle Mac on 05-17-2023 Bilirubin Ql (U) 2+ Negative [facility] Bilirubin.total [Mass/volume ] in Serum or PlasmaOrdered By: Halle Mac on 05-17-2023 Bilirubin [Mass/Vol] 0.5 mg/dL Normal 0.3-1.0 [facility] Comment on above: Order Comment: Name Collection Type:: Clean-Voided Midstream Performed By: #### P ROCREWESTON, ADDONUAPLUS #### [facility] [address] [place] [address] Calcium [Mass/volume] in Ser um or PlasmaOrdered By: Halle Mac on 05-17-2023 Calcium [Mass/Vol] 9.3 mg/dL Normal 8.6-10.3 [facility] Comment on above: Order Comment: Name Collection Type:: Clean-Voided Midstream Performed By: #### P ROCEDEL ADDONUAPLUS #### [facility] [address] Carbon dioxide, total [Moles /volume] in Serum or PlasmaOrdered By: Halle Mac on 05-17-2023 CO2 [Moles/Vol] 28.0 mmol/L Normal 21.0-31.0 [facility] Comment on above: Order Comment: Name Collection Type:: Clean-Voided Midstream Performed By: #### P ROCRERAT ADDONUAPLUS #### [address] Casts typing in urine sedime nt by light microscopyOrdered By: Halle Mac on 05-17-2023 Casts LM Nom (Urine sed) None seen [LPF] None Seen [facility] Chloride [Moles/volume] in S brunilda or PlasmaOrdered By: Halle Mac on 05-17-2023 Chloride [Moles/Vol] 107 mmol/L Normal 98-107 [facility] Comment on above: Order Comment: Name Collection Type:: Clean-Voided Midstream Performed By: #### P ROCRERAT, ADDONUAPLUS #### [address] Comprehensive Metabolic Pane pillo 05-17-2023 Albumin [Mass/Vol] 4.3 g/dL Normal 3.5-5.7 [facility] Comment on above: Order Comment: Name Collection Type:: Clean-Voided Midstream Performed By: #### P ORAREWESTON ADDONUAPLUS #### [place] [address] [place] GFR/1.73 sq M.predicted MDRD (S/P/Bld) [Vol rate/Area] 41.013 mL/min/{1.73_m2} Normal [facility] Comment on above: Order Comment: Name Collection Type:: Clean-Voided Midstream Performed By: #### P ROCRERAT, ADDONUAPLUS #### [facility] [address] [place] [address] [place] Creatinine [Mass/volume] in Serum or PlasmaOrdered By: Halle Mac on 05-17-2023 Creatinine [Mass/Vol] 1.52 mg/dL High 0.60-1.20 [facility] Comment on above: Order Comment: Name Collection Type:: Clean-Voided Midstream Performed By: #### P ROCEDEL ADDONUAPLUS #### [facility] [address] [place] [address] Creatinine [Mass/volume] in UrineOrdered By: Halle Mac on 05-17-2023 Creatinine (U) [Mass/Vol] mg/dL 11.0-20.0 [facility] Dipstick and Microscopicon 0 05-17-2023 Appearance (U) Cloudy Critically abnormal Clear [facility] Comment on above: Order Comment: Reaso n for Exam Chronic kidney disease, stage 3b;Hypertensive nephropathy;Di Name Collection Type:: Clean-Voided Midstream Performed By: #### P ROCREWESTON, ADDONUAPLUS #### [facility] [address] [place] [address] [place] Bacteria,Urine None Seen Normal None Seen [facility] Comment on above: Order Comment: Reaso n for Exam Chronic kidney disease, stage 3b;Hypertensive nephropathy;Di Name Collection Type:: Clean-Voided Midstream Performed By: #### P LESLEE ADDONUAPLUS #### [facility] [address] [place] [address] [place] Bilirubin,Urine 2+ High Negative [facility] Comment on above: Order Comment: Reaso n for Exam Chronic kidney disease, stage 3b;Hypertensive nephropathy;Di Name Collection Type:: Clean-Voided Midstream Performed By: #### P ROCRERAT, ADDONUAPLUS #### [facility] [address] [place] [address] [place] Fine Granular Casts,Urine 5-9 High 0-1 [facility] Comment on above: Order Comment: Reaso n for Exam Chronic kidney disease, stage 3b;Hypertensive nephropathy;Di Name Collection Type:: Clean-Voided Midstream Performed By: #### P ROCRERAT, ADDONUAPLUS #### [facility] [address] [place] [address] [place] Glucose Ql (U) Normal Normal Normal [facility] Comment on above: Order Comment: Reaso n for Exam Chronic kidney disease, stage 3b;Hypertensive nephropathy;Di Name Collection Type:: Clean-Voided Midstream Performed By: #### P ROCRERAT, ADDONUAPLUS #### [facility] [address] [place] [address] Hyaline Casts,Urine None Seen Normal 0-8 [facility] Comment on above: Order Comment: Reaso n for Exam Chronic kidney disease, stage 3b;Hypertensive nephropathy;Di Name Collection Type:: Clean-Voided Midstream Performed By: #### P ROCRERAT, ADDONUAPLUS #### [facility] [address] [place] [address] [place] Ketones Ql (U) 1+ High Negative [facility] Comment on above: Order Comment: Reaso n for Exam Chronic kidney disease, stage 3b;Hypertensive nephropathy;Di Name Collection Type:: Clean-Voided Midstream Performed By: #### P ROCRERAT, ADDONUAPLUS #### [facility] [address] [place] [address] [place] Leukocyte esterase Test strip Ql (U) 1+ High Negative [facility] Comment on above: Order Comment: Reaso n for Exam Chronic kidney disease, stage 3b;Hypertensive nephropathy;Di Name Collection Type:: Clean-Voided Midstream Performed By: #### P ROCRERAT, ADDONUAPLUS #### [facility] [address] [place] [address] [place] Mucus,Urine 3+ Critically abnormal [facility] Comment on above: Order Comment: Reaso n for Exam Chronic kidney disease, stage 3b;Hypertensive nephropathy;Di Name Collection Type:: Clean-Voided Midstream Performed By: #### P ROCRERAT, ADDONUAPLUS #### [facility] [address] [place] [address] [place] Nitrite,Urine Negative Normal Negative [facility] Comment on above: Order Comment: Reaso n for Exam Chronic kidney disease, stage 3b;Hypertensive nephropathy;Di Name Collection Type:: Clean-Voided Midstream Performed By: #### P ROCRERAT, ADDONUAPLUS #### [facility] [address] [place] [address] [place] Occult Blood,Urine Negative Normal Negative [facility] Comment on above: Order Comment: Reaso n for Exam Chronic kidney disease, stage 3b;Hypertensive nephropathy;Di Name Collection Type:: Clean-Voided Midstream Result Comment: PERF ORMED BY: [place] [address] PATHOLOGIST DIGITAL HARDWARE DESIGN ENGINEER ARIC BUTLER M.D. Performed By: #### P ROCRERAT, ADDONUAPLUS #### [address] Other Casts,Urine None Seen Normal None Seen [facility] Comment on above: Order Comment: Reaso n for Exam Chronic kidney disease, stage 3b;Hypertensive nephropathy;Di Name Collection Type:: Clean-Voided Midstream Performed By: #### P ROCRERAT, ADDONUAPLUS #### [address] RBC,Urine 3-4 Normal 0-4 [facility] Comment on above: Order Comment: Reaso n for Exam Chronic kidney disease, stage 3b;Hypertensive nephropathy;Di Name Collection Type:: Clean-Voided Midstream Performed By: #### P ROCRERAT, ADDONUAPLUS #### [address] Specificy [place],Urine 1.025 Normal 1.001-1.030 [facility] Comment on above: Order Comment: Reaso n for Exam Chronic kidney disease, stage 3b;Hypertensive nephropathy;Di Name Collection Type:: Clean-Voided Midstream Performed By: #### P ROCRERAT, ADDONUAPLUS #### [address] Squamous Epithelial Cell,Urine 3-4 High 0-2 [facility] Comment on above: Order Comment: Reaso n for Exam Chronic kidney disease, stage 3b;Hypertensive nephropathy;Di Name Collection Type:: Clean-Voided Midstream Performed By: #### P ROCRERAT, ADDONUAPLUS #### [address] Urobilinogen,Urine Normal Normal Normal [facility] Comment on above: Order Comment: Reaso n for Exam Chronic kidney disease, stage 3b;Hypertensive nephropathy;Di Name Collection Type:: Clean-Voided Midstream Performed By: #### P ROCRERAT, ADDONUAPLUS #### [address] WBC,Urine 10-19 High 0-4 [facility] Comment on above: Order Comment: Reaso n for Exam Chronic kidney disease, stage 3b;Hypertensive nephropathy;Di Name Collection Type:: Clean-Voided Midstream Performed By: #### P ROCRERAT, ADDONUAPLUS #### [address] Yeast,Urine None Seen Normal None Seen [facility] Comment on above: Order Comment: Reaso n for Exam Chronic kidney disease, stage 3b;Hypertensive nephropathy;Di Name Collection Type:: Clean-Voided Midstream Result Comment: PERF ORMED BY: [place] [address] PATHOLOGIST D[employer]ITAL HARDWARE DESIGN ENGINEER ARIC BUTLER M.D. Performed By: #### P ROCREWESTON, ADDONUAPLUS #### [address] Erythrocyte distribution wid th [Ratio] by Automated countOrdered By: Halle Mac on 05-17-2023 Erythrocyte distribution width (RBC) [Ratio] 13.4 % Normal 11.9-15.3 [facility] Comment on above: Order Comment: Reaso n for Exam Chronic kidney disease, stage 3b;Hypertensive nephropathy;Di Performed By: #### C BCNO #### [address] Erythrocytes [#/volume] in B lood by Automated countOrdered By: Halle Mac on 05-17-2023 RBC (Bld) [#/Vol] 4.03 10*6/uL Normal 3.60-5.00 [facility] Comment on above: Order Comment: Reaso n for Exam Chronic kidney disease, stage 3b;Hypertensive nephropathy;Di Performed By: #### C BCNO #### [address] [place] [address] [place] Ferritin [Mass/volume] in Se rum or PlasmaOrdered By: Halle Mac on 05-17-2023 Ferritin [Mass/Vol] 51.8 ng/mL Normal 11.0-306.8 [facility] Comment on above: Order Comment: Name Collection Type:: Clean-Voided Midstream Performed By: #### P MYLES CAMILOUAPLUS #### [place] [address] [place] Fine granular cast count in urine sediment by microscopy (number/low power field )Ordered By: Halle Mac on 05-17-2023 Fine Granular Casts LM.LPF (Urine sed) [#/Area] 5-9 [LPF] 0-1 [facility] Glucose [Mass/volume] in Ser um or PlasmaOrdered By: Halle Mac on 05-17-2023 Glucose [Mass/Vol] 123 mg/dL High 70-100 [facility] Comment on above: ADA recommended refe rence rangeRandom Glucose Reference Range is dependent on time and content of last meal. Glucose of more than 200 mg/dL in a nonstressed, ambulatory subject supports the diagnosis of Diabetes Mellitus. Order Comment: Name Collection Type:: Clean-Voided Midstream Result Comment: [place] Glucose Reference Range is dependent on time and content of last meal. Glucose of more than 200 mg/dL in a nonstressed, ambulatory subject supports the diagnosis of Diabetes Mellitus. ADA recommended reference range Performed By: #### P JOSH CAMILOPLUS #### [place] [address] [place] Hematocrit [Volume Fraction] of Blood by Automated countOrdered By: Halle Mac on 05-17-2023 Hematocrit (Bld) [Volume fraction] 36.1 % Normal 34.0-46.4 [facility] Comment on above: Order Comment: Reaso n for Exam Chronic kidney disease, stage 3b;Hypertensive nephropathy;Di Performed By: #### C BCNO #### [place] [address] [place] Hemoglobin [Mass/volume] in BloodOrdered By: Halle Mac on 05-17-2023 Hemoglobin (Bld) [Mass/Vol] 11.8 g/dL Normal 11.8-15.4 [facility] Comment on above: Order Comment: Reaso n for Exam Chronic kidney disease, stage 3b;Hypertensive nephropathy;Di Performed By: #### C BCNO #### [address] Hemogram CBC Without Diffon 05-17-2023 Mean Corpuscular HGB Conc 32.8 g/dL Normal 32.0-35.0 [facility] Comment on above: Order Comment: Reaso n for Exam Chronic kidney disease, stage 3b;Hypertensive nephropathy;Di Performed By: #### C BCNO #### [address] WBC (Bld) [#/Vol] 5.5 10*3/uL Normal 3.8-11.6 [facility] Comment on above: Order Comment: Reaso n for Exam Chronic kidney disease, stage 3b;Hypertensive nephropathy;Di Performed By: #### C BCNO #### [address] Iron [Mass/volume] in Serum or PlasmaOrdered By: Halle Mac on 05-17-2023 Iron [Mass/Vol] 57 ug/dL Normal 50-212 [facility] Comment on above: Order Comment: Name Collection Type:: Clean-Voided Midstream Performed By: #### P JOSH CAMILOPLUS #### [address] Iron and TIBC Profileon % Iron Saturation 10.6 % Low 20-50 [facility] Comment on above: Order Comment: Name Collection Type:: Clean-Voided Midstream Performed By: #### P JOSH CAMILOPLUS #### [address] Total Iron Binding Capacity 538 ug/dL High 255-450 [facility] Comment on above: Order Comment: Name Collection Type:: Clean-Voided Midstream Performed By: #### P LESLEE ADDONUAPLUS #### [facility] [address] Iron binding capacity [Mass/ volume] in Serum or PlasmaOrdered By: Halle Mac on 05-17-2023 Iron binding capacity [Mass/Vol] 538 ug/dL 255-450 [facility] Iron saturation [Mass Fracti on] in Serum or PlasmaOrdered By: Halle Mac on 05-17-2023 Iron saturation [Mass fraction] 10.6 % 20-50 [facility] Ketones Auto test strip (U) [Mass/Vol]Ordered By: Halle Mac on 05-17-2023 Ketones (U) [Mass/Vol] 1+ Negative Fi [facility] Laboratory - UrinalysisOrder ed By: Halle Mac on 05-17-2023 Hyaline casts LM Ql (Urine sed) None seen [LPF] 0-8 [facility] Leukocytes [#/volume] correc joaquin for nucleated erythrocytes in Blood by Automated counOrdered By: Halle Mac on 05-17-2023 WBC corrected for nucl RBC Auto (Bld) [#/Vol] 5.5 10*3/uL 3.8-11.6 [facility] MCH [Entitic mass] by Automa joaquin countOrdered By: Halle Mac on 05-17-2023 MCH (RBC) [Entitic mass] 29.4 pg Normal 24.7-34.3 [facility] Comment on above: Order Comment: Reaso n for Exam Chronic kidney disease, stage 3b;Hypertensive nephropathy;Di Performed By: #### C BCNO #### [facility] [address] [place] [address] MCHC Auto (RBC) [Mass/Vol]Or dered By: Halle Mac on 05-17-2023 MCHC (RBC) [Mass/Vol] 32.8 g/dL 32.0-35.0 [facility] MCV [Entitic volume] by Auto mated countOrdered By: Halle Mac on 05-17-2023 MCV (RBC) [Entitic vol] 89.4 fL Normal 80-100 [facility] Comment on above: Order Comment: Reaso n for Exam Chronic kidney disease, stage 3b;Hypertensive nephropathy;Di Performed By: #### C BCNO #### [facility] [address] [place] [id number] [place] Magnesium [Mass/volume] in S brunilda or PlasmaOrdered By: Halle Mac on 05-17-2023 Magnesium [Mass/Vol] 2.0 mg/dL Normal 1.9-2.7 [facility] Comment on above: Order Comment: Name Collection Type:: Clean-Voided Midstream Performed By: #### P LESLEE ADDONUAPLUS #### [facility] [id number] [facility] Mucus LM Ql (Urine sed)Order ed By: Halle Mac on 05-17-2023 Mucus Ql (Urine sed) 3+ [LPF] [facility] Nitrite Test strip Ql (U)Ord ered By: Halle Mac on 05-17-2023 Nitrite Ql (U) Negative Negative [facility] No Panel InformationOrdered By: Halle Mac on 05-17-2023 Estimated GFR (CKD-EPI) 41.013 mL/Min [facility] Creatinine Clearance (Chem N/A [facility] Parathyrin.intact [Mass/volu me] in Serum or PlasmaOrdered By: Halle Mac on 05-17-2023 Parathyrin.intact [Mass/Vol] 36.3 pg/mL [facility] Parathyroid Hormone Intacton 05-17-2023 Parathyroid Hormone Intact 36.3 pg/mL Normal [facility] Comment on above: Order Comment: Reaso n for Exam Chronic kidney disease, stage 3b;Hypertensive nephropathy;Di Result Comment: PERF ORMED BY: [place] [address] PATHOLOGIST [employer]IGITAL HARD[employer] DESIGN ENGINEER ARIC BUTLER M.D. Performed By: #### P LESLEE ADDONUAPLUS #### [facility] [address] [place] [id number] [place] Phosphate [Mass/volume] in S brunilda or PlasmaOrdered By: Halle Mac on 05-17-2023 Phosphate [Mass/Vol] 4.4 mg/dL Normal 2.5-4.5 [facility] Comment on above: Order Comment: Name Collection Type:: Clean-Voided Midstream Performed By: #### P MYLES CAMILOUAPLUS #### [facility] [address] [place] [address] Platelet mean volume [Entiti c volume] in Blood by Automated countOrdered By: Halle Mac on 05-17-2023 Platelet mean volume (Bld) [Entitic vol] 9.5 fL Normal 6.3-10.7 [facility] Comment on above: Order Comment: Reaso n for Exam Chronic kidney disease, stage 3b;Hypertensive nephropathy;Di Result Comment: PERF ORMED BY: [place] [address] PATHOLOGIST [employer] HARD[employer] DESIGN ENGINEER ARIC BUTLER M.D. Performed By: #### C BCNO #### [facility] [address] [place] [address] [place] Platelets [#/volume] in Bloo d by Automated countOrdered By: Halle Mac on 05-17-2023 Platelets (Bld) [#/Vol] 233 10*3/uL Normal 150-450 [facility] Comment on above: Order Comment: Reaso n for Exam Chronic kidney disease, stage 3b;Hypertensive nephropathy;Di Performed By: #### C BCNO #### [facility] [address] [place] [address] [place] Potassium [Moles/volume] in Serum or PlasmaOrdered By: Halle Mac on 05-17-2023 Potassium [Moles/Vol] 3.8 mmol/L Normal 3.5-5.1 [facility] Comment on above: Order Comment: Name Collection Type:: Clean-Voided Midstream Performed By: #### P JOSH CAMILOPLUS #### [facility] [address] [place] [address] Protein Creat Ratio Ur Rando mon 05-17-2023 Creatinine, Urine (Random) > 300.0 High 11.0-20.0 [facility] Comment on above: Order Comment: Name Collection Type:: Clean-Voided Midstream Performed By: #### P ROCRERAT, ADDONUAPLUS #### [address] Urine Protein/Creatinine Ratio Not performed Normal 0-200 [facility] Comment on above: Order Comment: Name Collection Type:: Clean-Voided Midstream Result Comment: PERF ORMED BY: [place] [address] PATHOLOGIST [employer] H[employer] DESIGN ENGINEER ARIC BUTLER M.D. Performed By: #### P ROCRERAT, ADDONUAPLUS #### [address] Protein [Mass/volume] in Ser um or PlasmaOrdered By: Halle Mac on 05-17-2023 Protein [Mass/Vol] 6.6 g/dL Normal 6.4-8.9 [facility] Comment on above: Order Comment: Name Collection Type:: Clean-Voided Midstream Performed By: #### P ROCRERAT, ADDONUAPLUS #### [address] Protein [Mass/volume] in Uri neOrdered By: Halle Mac on 05-17-2023 Protein (U) [Mass/Vol] 35 mg/dL High 0-9 [facility] Comment on above: Order Comment: Name Collection Type:: Clean-Voided Midstream Performed By: #### P ROCRERAT, ADDONUAPLUS #### [address] Serum globulin measurement b y calculation (mass/volume)Ordered By: Halle Mac on 05-17-2023 Globulin (S) [Mass/Vol] 2.3 g/dL Normal [facility] Comment on above: Order Comment: Name Collection Type:: Clean-Voided Midstream Performed By: #### P ROCRERAT, ADDONUAPLUS #### [place] [address] [place] Serum or plasma albumin/glob ulin mass ratioOrdered By: Halle Mac on 05-17-2023 Albumin/Globulin [Mass ratio] 1.9 {ratio} Normal [facility] Comment on above: Order Comment: Name Collection Type:: Clean-Voided Midstream Performed By: #### P LESLEE, ADDONUAPLUS #### [facility] [address] [place] [address] Serum or plasma anion gap de terminationOrdered By: Halle Mac on 05-17-2023 Anion gap [Moles/Vol] 10.8 mmol/L Normal 6.0-15.0 [facility] Comment on above: Order Comment: Name Collection Type:: Clean-Voided Midstream Performed By: #### P LESLEE, ADDONUAPLUS #### [address] Sodium [Moles/volume] in Ser um or PlasmaOrdered By: Halle Mac on 05-17-2023 Sodium [Moles/Vol] 142 mmol/L Normal 136-145 [facility] Comment on above: Order Comment: Name Collection Type:: Clean-Voided Midstream Performed By: #### P LESLEE, ADDONUAPLUS #### [address] Specific gravity Auto test s trip (U) [Rel density]Ordered By: Halle Mac on 05-17-2023 Specific gravity (U) [Rel density] 1.025 1.001-1.030 [facility] Squamous epithelial cells de tection in urine sediment by light microscopyOrdered By: Halle Mac on 05-17-2023 Epithelial cells.squamous LM Ql (Urine sed) 3-4 [HPF] 0-2 [facility] Transferrin [Mass/volume] in Serum or PlasmaOrdered By: Halle Mac on 05-17-2023 Transferrin [Mass/Vol] 384 mg/dL High 203-362 [facility] Comment on above: Order Comment: Name Collection Type:: Clean-Voided Midstream Performed By: #### P LESLEE, ADDONUAPLUS #### [address] [address] [place] Urate [Mass/volume] in Serum or PlasmaOrdered By: Halle Mac on 05-17-2023 Urate [Mass/Vol] 7.3 mg/dL High 2.3-6.6 [facility] Comment on above: Order Comment: Name Collection Type:: Clean-Voided Midstream Performed By: #### P ROCRERAT, ADDONUAPLUS #### [facility] [address] [place] [address] Urea nitrogen [Mass/volume] in Serum or PlasmaOrdered By: Halle Mac on 05-17-2023 Urea nitrogen [Mass/Vol] 26 mg/dL High 7-25 [facility] Comment on above: Order Comment: Name Collection Type:: Clean-Voided Midstream Performed By: #### P ROCRERAT, ADDONUAPLUS #### [facility] [address] [place] [address] Urine Cultureon 05-17-2023 Bacteria identified Cx Nom (U) 50,000 colonies/ml mixed bacterial skin contaminants 2 Days PERFORMED BY: [place] [address] PATHOLOGIST [employer] DESIGN ENGINEER ARIC BUTLER M.D. Normal [facility] Comment on above: Performed By: #### P ROCRERAT, ADDONUAPLUS #### [facility] [address] [place] [address] Urine bacteria detection by automated methodOrdered By: Halle Mac on 05-17-2023 Bacteria Auto Ql (U) None seen None Seen [facility] Urine clarity by refractomet ry automatedOrdered By: Halle Mac on 05-17-2023 Clarity Refractometry automated (U) Cloudy Clear [facility] Urine culture routineOrdered By: Halle Mac on 05-17-2023 Bacteria identified Cx Nom (U) 2 Days [facility] Urine glucose measurement by automated test strip (mass/volume)Ordered By: Halle Mac on 05-17-2023 Glucose Auto test strip (U) [Mass/Vol] Normal mg/dL Normal [facility] Urine hemoglobin detection b y automated test stripOrdered By: Halle Mac on 05-17-2023 Hemoglobin Auto test strip Ql (U) Negative Negative [facility] Urine leukocyte esterase det ection by automated test stripOrdered By: Halle Mac on 05-17-2023 Leukocyte esterase Auto test strip Ql (U) 1+ Negative [facility] Urine pH measurement by auto mated test stripOrdered By: Halle Mac on 05-17-2023 pH (U) 5.0 [pH] Normal 5.0-9.0 [facility] Comment on above: Order Comment: Reaso n for Exam Chronic kidney disease, stage 3b;Hypertensive nephropathy;Di Name Collection Type:: Clean-Voided Midstream Performed By: #### P RAMOS CAMILO #### [facility] [address] Urine protein measurement by automated test strip (mass/volume)Ordered By: Halle Mac on 05-17-2023 Protein (U) [Mass/Vol] 30 mg/dL High Negative [facility] Comment on above: Order Comment: Reaso n for Exam Chronic kidney disease, stage 3b;Hypertensive nephropathy;Di Name Collection Type:: Clean-Voided Midstream Performed By: #### P RAMOS CAMILO #### [facility] [address] Urine protein/creatinine rat ioOrdered By: Halle Mac on 05-17-2023 Protein/Creatinine (U) [Ratio] TNP [facility] Comment on above: Test not performed Urobilinogen Auto test strip (U) [Mass/Vol]Ordered By: Halle Mac on 05-17-2023 Urobilinogen (U) [Mass/Vol] Normal mg/dL Normal [facility] Valproate [Mass/volume] in S brunilda or PlasmaOrdered By: Fauzia Huffman on 05-17-2023 Valproate [Mass/Vol] 24.0 ug/mL 50.0-100.0 [facility] Comment on above: Last dose: - Valproic Acid (in house)on 0 05-17-2023 Valproic Acid (in house) 24.0 ug/mL Low 50.0-100.0 [facility] Comment on above: Result Comment: Last dose: - PERFORMED BY: [place] [address] PATHOLOGIST DIGITAL HARD[employer] DESIGN ENGINEER ARIC BUTLER M.D. Performed By: #### V ALP #### [address] Vitamin D 25 Hydroxy Totalon 05-17-2023 Vitamin D 25 Hydroxy Total 24.3 ng/mL Low 30-100 [facility] Comment on above: Order Comment: Name Collection Type:: Clean-Voided Midstream Result Comment: AWAIS MIN D STATUS 25(OH)VITAMIN D RANGE (ng/mL) Deficient <20 Insufficient 20 to <30 Sufficient 30 to 100 Reference: Nicole Almonte, Ed LI, et al. Evaluation,treatment, and prevention of vitamin D deficiency; an Endocrine Society clinical practice guideline. JCEM. 2010; 96(7):1911-30. PERFORMED BY: [place] [address] PATHOLOGIST DIGITAL HARDWARE DESIGN ENGINEER ARIC BUTLER M.D. Performed By: #### P RAMOS CAMILO #### [address] Vitamin D+Metabolites [Mass/ volume] in Serum or PlasmaOrdered By: Halle Mac on 05-17-2023 Vitamin D+Metabolites [Mass/Vol] 24.3 ng/mL 30-100 [facility] Comment on above: VITAMIN D STATUS 25( [...] (Urine sed) None seen [HPF] None Seen [facility] Provider Orderson 05-09-2023 Provider Orders [id number] Normal [facility] Office Visiton 03-14-2023 Follow-up visit [id number] Nithin Humphreys Amanda 1970 F Date Provider Department Center 03/14/2023 [id number]-EL[place]annon, EHAB BH CARD [facility] No family history on file Level of Service:32356 [place] OFFICE/OUTPATIENT ESTABLISHED MOD MDM 30-39 MIN Normal [facility] BNPon 09-07-2022 Natriuretic peptide B (Bld) [Mass/Vol] 391.0 pg/mL Normal <=900.0 [facility] Comment on above: Performed By: #### L IPID, BMP #### [facility] [address] [place] [address] Dr. Jag Waldrop CBC AUTO DIFFon 09-07-2022 BASO # 0.1 103/ul Normal 0.0-0.1 [facility] Comment on above: Performed By: #### L IPID, BMP #### [facility] [address] [place] [address] Dr. Jag Waldrop Basophils/100 WBC (Bld) 1.4 % Normal 0.2-2.0 [facility] Comment on above: Performed By: #### L IPID, BMP #### [facility] [address] [place] [address] Dr. Jag Waldrop EO # 0.1 103/ul Normal 0.0-0.7 [facility] Comment on above: Performed By: #### L IPID, BMP #### [facility] [address] [place] [address] Dr. Jag Waldrop Eosinophils/100 WBC (Bld) 1.6 % Normal 0.9-7.0 [facility] Comment on above: Performed By: #### L IPID, BMP #### [facility] [address] [place] [address] Dr. Jag Waldrop Erythrocyte distribution width (RBC) [Ratio] 15.0 % Normal 11.0-15.0 [facility] Comment on above: Performed By: #### L IPID, BMP #### [facility] [address] [place] [address] Dr. Jag Waldrop Hematocrit (Bld) [Volume fraction] 37.2 % Normal 36.0-48.0 [facility] Comment on above: Performed By: #### L IPID, BMP #### [facility] [address] [place] [address] Dr. Jag Waldrop Hemoglobin (Bld) [Mass/Vol] 11.6 g/dL Critically low 12.0-16.0 [facility] Comment on above: Performed By: #### L IPID, BMP #### [facility] [address] [place] [address] Dr. Jag Waldrop IG # 0.01 10e3/ul Normal 0.00-0.03 [facility] Comment on above: Performed By: #### L IPID, BMP #### [facility] [address] [place] [address] Dr. Jag Waldrop IG % 0.2 % Normal 0.0-0.5 [facility] Comment on above: Performed By: #### L IPID, BMP #### [facility] [address] [place] [address] Dr. Jag Waldrop LYMPH # 1.9 103/ul Normal 1.2-3.8 [facility] Comment on above: Performed By: #### L IPID, BMP #### [facility] [address] [place] [address] Dr. Jag Waldrop Lymphocytes/100 WBC (Bld) 39.1 % Normal 20.5-60.0 [facility] Comment on above: Performed By: #### L IPID, BMP #### [facility] [address] [place] [address] Dr. Jag Waldrop MANUAL DIFF REQ NO Normal [facility] Comment on above: Performed By: #### L IPID, BMP #### [facility] [address] [place] [address] Dr. Jag Waldrop MCH (RBC) [Entitic mass] 27.5 pg Normal 26.7-34.0 [facility] Comment on above: Performed By: #### L IPID, BMP #### [facility] [address] [place] [address] Dr. Jag Waldrop MCHC (RBC) [Mass/Vol] 31.2 g/dL Normal 29.9-35.2 [facility] Comment on above: Performed By: #### L IPID, BMP #### [facility] [address] [place] [address] Dr. Jag Waldrop MCV (RBC) [Entitic vol] 88.2 fL Normal 81.0-99.0 [facility] Comment on above: Performed By: #### L IPID, BMP #### [facility] [address] [place] [address] Dr. Jag Waldrop MONO # 0.3 103/ul Normal 0.3-0.8 [facility] Comment on above: Performed By: #### L IPID, BMP #### [facility] [address] [place] [address] Dr. Jag Waldrop Monocytes/100 WBC (Bld) 6.5 % Normal 1.7-12.0 [facility] Comment on above: Performed By: #### L IPID, BMP #### [facility] [address] [place] [address] Dr. Jag Waldrop NEUT # 2.5 103/ul Normal 1.4-6.5 [facility] Comment on above: Performed By: #### L IPID, BMP #### [facility] [address] [place] [address] Dr. Jag Waldrop Neutrophils/100 WBC (Bld) 51.2 % Normal 43.0-75.0 [facility] Comment on above: Performed By: #### L IPID, BMP #### [facility] [address] [place] [address] Dr. Jag Waldrop Platelet mean volume (Bld) [Entitic vol] 10.5 fL Normal 9.5-13.5 [facility] Comment on above: Performed By: #### L IPID, BMP #### [facility] [address] [place] [address] Dr. Jag Waldrop PLT 272 103/ul Normal 150-450 [facility] Comment on above: Performed By: #### L IPID, BMP #### [facility] [address] [place] [address] Dr. Jag Waldrop RBC 4.22 106/ul Normal 4.20-5.40 [facility] Comment on above: Performed By: #### L IPID, BMP #### [facility] [address] [place] [address] Dr. Jag Waldrop WBC 4.9 103/ul Normal 4.0-11.0 [facility] Comment on above: Performed By: #### L IPID, BMP #### [facility] [address] [place] [address] Dr. Jag Waldrop ER URINE PROFILEon 3 Bilirubin Ql (U) Negative Normal NEGATIVE [facility] Comment on above: Performed By: #### E RUR #### [facility] [address] [place] [address] Dr. Jag Waldrop Clarity (U) CLEAR Normal CLEAR [facility] Comment on above: Performed By: #### E RUR #### [facility] [address] [place] [address] Dr. Jag Waldrop Color (U) LT. YELLOW Normal YELLOW [facility] Comment on above: Performed By: #### E RUR #### [facility] [address] [place] [address] Dr. Jag Waldrop ERUNEIL A micrscopic examina tion will be performed if indicated. Normal [facility] Comment on above: Performed By: #### E RUR #### [facility] [address] [place] [address] Dr. Jag Waldrop Glucose Ql (U) Negative Normal NEGATIVE [facility] Comment on above: Performed By: #### E RUR #### [facility] [address] [place] [address] Dr. Jag Waldrop Hemoglobin Ql (U) Negative Normal NEGATIVE [facility] Comment on above: Performed By: #### E RUR #### [facility] [address] [place] [address] Dr. Jag Waldrop Ketones Ql (U) Negative Normal NEGATIVE [facility] Comment on above: Performed By: #### E RUR #### [facility] [address] [place] [address] Dr. Jag Waldrop LEUKOCYTES Negative Normal NEGATIVE [facility] Comment on above: Performed By: #### E RUR #### [facility] [address] [place] [address] Dr. Jag Waldrop Nitrite Ql (U) Negative Normal NEGATIVE [facility] Comment on above: Performed By: #### E RUR #### [facility] [address] [place] [address] Dr. Jag Waldrop pH (U) 7.0 [pH] Normal 5-9 [facility] Comment on above: Performed By: #### E RUR #### [facility] [address] [place] [address] Dr. Jag Waldrop SPEC GRAVITY 1.010 Normal 1.005-<=1.[address] [place] [address] Comment on above: Performed By: #### E RUR #### [facility] [address] [place] [address] Dr. Jag Waldrop UA PROTEIN Negative Normal NEGATIVE/ TRACE [facility] Comment on above: Performed By: #### E RUR #### [facility] [address] [place] [address] Dr. Jag Waldrop UR MICRO IND NOT INDICATED Normal [facility] Comment on above: Performed By: #### E RUR #### [facility] [address] [place] [address] Dr. Jag Waldrop Urobilinogen Qn (U) 0.2 {Chris'U}/dL Normal 0.2 - 1. 0 [facility] Comment on above: Performed By: #### E RUR #### [facility] [address] [place] [address] Dr. Jag Waldrop PROF 14(COMP METB)on 023 Albumin [Mass/Vol] 3.9 g/dL Normal 3.4-5.0 [facility] Comment on above: Performed By: #### L IPID, BMP #### [facility] [address] [address] [address] Jag Waldrop Albumin/Globulin [Mass ratio] 1.2 {ratio} Normal [facility] Comment on above: Performed By: #### L IPID, BMP #### [facility] [address] [address] [address] Jag Waldrop ALP [Catalytic activity/Vol] 95 U/L Normal 46-116 [facility] Comment on above: Performed By: #### L IPID, BMP #### [facility] [address] [address] [address] Jag Waldrop ALT [Catalytic activity/Vol] 31 U/L Normal 14-59 [facility] Comment on above: Performed By: #### L IPID, BMP #### [facility] [address] [address] [address] Jag Waldrop Anion gap [Moles/Vol] 12.7 mmol/L Normal [facility] Comment on above: Performed By: #### L IPID, BMP #### [facility] [address] [address] [address] Jag Waldrop AST [Catalytic activity/Vol] 34 U/L Normal 15-37 [facility] Comment on above: Performed By: #### L IPID, BMP #### [facility] [address] [address] [address] Jag Waldrop Bilirubin [Mass/Vol] 0.4 mg/dL Normal 0.2-1.0 [facility] Comment on above: Performed By: #### L IPID, BMP #### [facility] [address] [address] [address] Jag Waldrop Calcium [Mass/Vol] 9.1 mg/dL Normal 8.5-10.1 [facility] Comment on above: Performed By: #### L IPID, BMP #### [facility] [address] [address] [address] Jag Waldrop Chloride [Moles/Vol] 107 mmol/L Normal 98-107 [facility] Comment on above: Performed By: #### L IPID, BMP #### [facility] [address] [place] [address] Dr. Jag Waldrop CO2 [Moles/Vol] 28.1 mmol/L Normal 21.0-32.0 [facility] Comment on above: Performed By: #### L IPID, BMP #### [facility] [address] [place] [address] Dr. Jag Waldrop Creatinine [Mass/Vol] 1.18 mg/dL Critically high 0.55-1.02 [facility] Comment on above: Performed By: #### L IPID, BMP #### [facility] [address] [place] [address] Dr. Jag Waldrop EGFR-AF URUGUAYAN 59 mL/min/1.73m2 Critically low >=60 [facility] Comment on above: Performed By: #### L IPID, BMP #### [facility] [address] [place] [address] Dr. Jag Waldrop EGFR-NON AF URUGUAYAN 48 mL/min/1.73m2 Critically low >=60 [facility] Comment on above: Performed By: #### L IPID, BMP #### [facility] [address] [place] [address] Dr. Jag Waldrop Globulin (S) [Mass/Vol] 3.3 g/dL Normal [facility] Comment on above: Performed By: #### L IPID, BMP #### [facility] [address] [place] [address] Dr. Jag Waldrop Glucose [Mass/Vol] 111 mg/dL Critically high 74-106 [facility] Comment on above: Performed By: #### L IPID, BMP #### [facility] [address] [place] [address] Dr. Jag Waldrop Potassium [Moles/Vol] 3.8 mmol/L Normal 3.5-5.1 [facility] Comment on above: Performed By: #### L IPID, BMP #### [facility] [address] [place] [address] Dr. Jag Waldrop Protein [Mass/Vol] 7.2 g/dL Normal 6.4-8.2 [facility] Comment on above: Performed By: #### L IPID, BMP #### [facility] [address] [place] [address] Dr. Jag Waldrop Sodium [Moles/Vol] 144 mmol/L Normal 136-145 [facility] Comment on above: Performed By: #### L IPID, BMP #### [facility] [address] [place] [address] Dr. Jag Waldrop Urea nitrogen [Mass/Vol] 19.0 mg/dL Critically high 7.0-18.0 [facility] Comment on above: Performed By: #### L IPID, BMP #### [facility] [address] [place] [address] Dr. Jag Waldrop Urea nitrogen/Creatinine [Mass ratio] 16.1 mg/mg Normal [facility] Comment on above: Performed By: #### L IPID, BMP #### [facility] [address] [place] [address] Dr. Jag Waldrop PROTIMEon 09-07-2022 INR Coag (PPP) [Relative time] {INR} Normal [facility] Comment on above: Performed By: #### P T #### [facility] [address] [place] [address] Dr. Jag Waldrop INR GUIDELINES SEE BELOW Normal [facility] Comment on above: Result Comment: MARTIN RED INR: 2.0 - 3.0 CONDITIONS NOT LISTED BELOW 2.5 - 3.5 FOR PROSTHETIC HEART VALVE REPLACEMENT 2.5 - 3.5 RECURRENT THROMBOSIS Performed By: #### P T #### [facility] [address] [place] [address] Dr. Jag Waldrop PT Coag (PPP) [Time] 9.7 s Normal 9.0-11.6 [facility] Comment on above: Performed By: #### P T #### [facility] [address] [place] [address] Dr. Jag Waldrop TROPONIN, HIGH SENSITIVITYon 09-07-2022 HSTROP 17.8 pg/mL Normal 4.0-51.3 [facility] Comment on above: Result Comment: CUT- OFF POINTS HAVE BEEN ESTABLISHED BASED ON THE FOURTH UNIVERSAL DEFINITIONS OF MYOCARDIAL INFARCTION. THE UPPER REFERENCE LIMIT (URL) OF TROPONIN, DEFINED THE 99TH PERCENTILE OF cTnI DISTRIBUTION IN A REFERENCE POPULATION, HAS BEEN CONFIRMED THE DECISION THRESHOLD FOR SC DIAGNOSIS. Performed By: #### L IPID, BMP #### [facility] [address] [place] [address] Dr. Jag Waldrop XR CHEST 2 Von [...] by: WAN JENKINS Date: 2022-09-07 16:47 Normal [facility] GLYCOHEMOGLOBIN A1Con 2022 ADA RECOMMENDATION SEE BELOW Normal [facility] Comment on above: Result Comment: ADA RECOMMENDED LIMIT 4.0 - 6.0 ADA THERAPEUTIC TARGET < 7.0 ACTION SUGGESTED > 7.0 Performed By: #### L IPID, BMP #### [facility] [address] [place] [address] Dr. Jag Waldrop Glucose [Mass/Vol] 120 mg/dL Normal [facility] Comment on above: Performed By: #### L IPID, BMP #### [facility] [address] [address] [address] Jag Waldrop HbA1c (Bld) [Mass fraction] 5.8 % Normal 4.5-6.2 [facility] Comment on above: Performed By: #### L IPID, BMP #### [facility] [address] [address] [address] Jag Waldrop PROF CHEM 8 (BAS METB)on Anion gap [Moles/Vol] 13.2 mmol/L Normal [facility] Comment on above: Performed By: #### B MP #### [facility] [address] [place] [address] Dr. Jag Waldrop Calcium [Mass/Vol] 9.0 mg/dL Normal 8.5-10.1 [facility] Comment on above: Performed By: #### B MP #### [facility] [address] [place] [address] Dr. Jag Waldrop Chloride [Moles/Vol] 107 mmol/L Normal 98-107 [facility] Comment on above: Performed By: #### B MP #### [facility] [address] [address] [address] Jag Waldrop CO2 [Moles/Vol] 26.3 mmol/L Normal 21.0-32.0 [facility] Comment on above: Performed By: #### B MP #### [facility] [address] [place] [address] Dr. Jag Waldrop Creatinine [Mass/Vol] 1.03 mg/dL Critically high 0.55-1.02 [facility] Comment on above: Performed By: #### B MP #### [facility] [address] [place] [address] Dr. Jag Waldrop EGFR-AF URUGUAYAN >60 Normal >=60 [facility] Comment on above: Performed By: #### B MP #### [facility] [address] [place] [address] Dr. Jag Waldrop EGFR-NON AF URUGUAYAN 56 mL/min/1.73m2 Critically low >=60 [facility] Comment on above: Performed By: #### B MP #### [facility] [address] [place] [address] Dr. Jag Waldrop Glucose [Mass/Vol] 149 mg/dL Critically high 74-106 [facility] Comment on above: Performed By: #### B MP #### [facility] [address] [address] [address] Jag Waldrop Potassium [Moles/Vol] 4.5 mmol/L Normal 3.5-5.1 [facility] Comment on above: Performed By: #### B MP #### [facility] [address] [place] [address] Dr. Jag Waldrop Sodium [Moles/Vol] 142 mmol/L Normal 136-145 [facility] Comment on above: Performed By: #### B MP #### [facility] [address], [place] [address] Dr. Jag Waldrop Urea nitrogen [Mass/Vol] 22.0 mg/dL Critically high 7.0-18.0 [facility] Comment on above: Performed By: #### B MP #### [facility] [address], [place] [address] Dr. Jag Waldrop Urea nitrogen/Creatinine [Mass ratio] 21.4 mg/mg Normal [facility] Comment on above: Performed By: #### B MP #### [facility] [address], [place] [address] ABD/PELVIS WO CONon [...] by: NATHAN COLE Date: 2022-05-29 22:50 Normal [facility] US KVNG DOP LEG RTon 05-30-19 [...] LUZ COELLO Date: 2022-05-29 22:42 Normal [facility] CBC AUTO DIFFon 05-29-2022 BASO # 0.1 103/ul Normal 0.0-0.1 [facility] Comment on above: Performed By: #### L IPID, BMP #### [facility] [address] [address] [address] Jag Waldrop Basophils/100 WBC (Bld) 0.7 % Normal 0.2-2.0 [facility] Comment on above: Performed By: #### L IPID, BMP #### [facility] [address] [address] [address] Jag Waldrop EO # 0.1 103/ul Normal 0.0-0.7 [facility] Comment on above: Performed By: #### L IPID, BMP #### [facility] [address] [address] [address] Jag Waldrop Eosinophils/100 WBC (Bld) 1.5 % Normal 0.9-7.0 [facility] Comment on above: Performed By: #### L IPID, BMP #### [facility] [address] [address] [address] Jag Waldrop Erythrocyte distribution width (RBC) [Ratio] 13.9 % Normal 11.0-15.0 [facility] Comment on above: Performed By: #### L IPID, BMP #### [facility] [address] [place] [address] Dr. Jag Waldrop Hematocrit (Bld) [Volume fraction] 34.2 % Critically low 36.0-48.0 [facility] Comment on above: Performed By: #### L IPID, BMP #### [facility] [address] [place] [address] Dr. Jag Waldrop Hemoglobin (Bld) [Mass/Vol] 10.9 g/dL Critically low 12.0-16.0 [facility] Comment on above: Performed By: #### L IPID, BMP #### [facility] [address] [place] [address] Dr. Jag Waldrop IG # 0.02 10e3/ul Normal 0.00-0.03 [facility] Comment on above: Performed By: #### L IPID, BMP #### [facility] [address] [place] [address] Dr. Jag Waldrop IG % 0.2 % Normal 0.0-0.5 [facility] Comment on above: Performed By: #### L IPID, BMP #### [facility] [address] [place] [address] Dr. Jag Waldrop LYMPH # 2.5 103/ul Normal 1.2-3.8 [facility] Comment on above: Performed By: #### L IPID, BMP #### [facility] [address] [place] [address] Dr. Jag Waldrop Lymphocytes/100 WBC (Bld) 30.4 % Normal 20.5-60.0 [facility] Comment on above: Performed By: #### L IPID, BMP #### [facility] [address] [place] [address] Dr. Jag Waldrop MANUAL DIFF REQ NO Normal [facility] Comment on above: Performed By: #### L IPID, BMP #### [facility] [address] [place] [address] Dr. Jag Waldrop MCH (RBC) [Entitic mass] 27.1 pg Normal 26.7-34.0 [facility] Comment on above: Performed By: #### L IPID, BMP #### [facility] [address] [place] [address] Dr. Jag Waldrop MCHC (RBC) [Mass/Vol] 31.9 g/dL Normal 29.9-35.2 [facility] Comment on above: Performed By: #### L IPID, BMP #### [facility] [address] [place] [address] Dr. Jag Waldrop MCV (RBC) [Entitic vol] 85.1 fL Normal 81.0-99.0 [facility] Comment on above: Performed By: #### L IPID, BMP #### [facility] [address] [place] [address] Dr. Jag Waldrop MONO # 0.5 103/ul Normal 0.3-0.8 [facility] Comment on above: Performed By: #### L IPID, BMP #### [facility] [address] [place] [address] Dr. Jag Waldrop Monocytes/100 WBC (Bld) 6.7 % Normal 1.7-12.0 [facility] Comment on above: Performed By: #### L IPID, BMP #### [facility] [address] [place] [address] Dr. Jag Waldrop NEUT # 4.9 103/ul Normal 1.4-6.5 [facility] Comment on above: Performed By: #### L IPID, BMP #### [facility] [address] [place] [address] Dr. Jag Waldrop Neutrophils/100 WBC (Bld) 60.5 % Normal 43.0-75.0 [facility] Comment on above: Performed By: #### L IPID, BMP #### [facility] [address] [place] [address] Dr. Jag Waldrop Platelet mean volume (Bld) [Entitic vol] 10.3 fL Normal 9.5-13.5 [facility] Comment on above: Performed By: #### L IPID, BMP #### [facility] [address] [place] [address] Dr. Jag Waldrop PLT 256 103/ul Normal 150-450 [facility] Comment on above: Performed By: #### L IPID, BMP #### [facility] [address] [place] [address] Dr. Jag Waldrop RBC 4.02 106/ul Critically low 4.20-5.40 [facility] Comment on above: Performed By: #### L IPID, BMP #### [facility] [address] [place] [address] Dr. Jag Waldrop WBC 8.1 103/ul Normal 4.0-11.0 [facility] Comment on above: Performed By: #### L IPID, BMP #### [facility] [address] [place] [address] Dr. Jag Waldrop ER URINE PROFILEon 3 Bilirubin Ql (U) Negative Normal NEGATIVE [facility] Comment on above: Performed By: #### L IPID, BMP #### [facility] [address] [place] [address] Dr. Jag Waldrop Clarity (U) CLEAR Normal CLEAR [facility] Comment on above: Performed By: #### L IPID, BMP #### [facility] [address] [place] [address] Dr. Jag Waldrop Color (U) YELLOW Normal YELLOW [facility] Comment on above: Performed By: #### L IPID, BMP #### [facility] [address] [place] [address] Dr. Jag Waldrop ERUNEIL A micrscopic examina tion will be performed if indicated. Normal [facility] Comment on above: Performed By: #### L IPID, BMP #### [facility] [address] [place] [address] Dr. Jag Waldrop Glucose Ql (U) Negative Normal NEGATIVE [facility] Comment on above: Performed By: #### L IPID, BMP #### [facility] [address] [place] [address] Dr. Jag Waldrop Hemoglobin Ql (U) Negative Normal NEGATIVE [facility] Comment on above: Performed By: #### L IPID, BMP #### [facility] [address] [place] [address] Dr. Jag Waldrop Ketones Ql (U) 15 mg/dl Abnormal NEGATIVE [facility] Comment on above: Performed By: #### L IPID, BMP #### [facility] [address] [place] [address] Dr. Jag Waldrop LEUKOCYTES TRACE Abnormal NEGATIVE [facility] Comment on above: Performed By: #### L IPID, BMP #### [facility] [address] [place] [address] Dr. Jag Waldrop Nitrite Ql (U) Negative Normal NEGATIVE [facility] Comment on above: Performed By: #### L IPID, BMP #### [facility] [address] [place] [address] Dr. Jag Waldrop pH (U) 5.5 [pH] Normal 5-9 [facility] Comment on above: Performed By: #### L IPID, BMP #### [facility] [address] [place] [address] Dr. Jag Waldrop SPEC GRAVITY 1.020 Normal 1.005-<=1.0 25 [facility] Comment on above: Performed By: #### L IPID, BMP #### [facility] [address] [place] [address] Dr. Jag Waldrop UA PROTEIN Negative Normal NEGATIVE/ TRACE [facility] Comment on above: Performed By: #### L IPID, BMP #### [facility] [address] [place] [address] Dr. Jag Waldrop UR MICRO IND INDICATED Normal [facility] Comment on above: Performed By: #### L IPID, BMP #### [facility] [address] [place] [address] Dr. Jag Waldrop Urobilinogen Qn (U) 0.2 {Chris'U}/dL Normal 0.2 - 1. 0 [facility] Comment on above: Performed By: #### L IPID, BMP #### [facility] [address] [address] [address] Jag Waldrop PROF CHEM 8 (BAS METB)on Anion gap [Moles/Vol] 14.2 mmol/L Normal [facility] Comment on above: Performed By: #### B MP #### [facility] [address] [place] [address] Dr. Jag Waldrop Calcium [Mass/Vol] 9.1 mg/dL Normal 8.5-10.1 [facility] Comment on above: Performed By: #### B MP #### [facility] [address] [address] [address] Jag Waldrop Chloride [Moles/Vol] 106 mmol/L Normal 98-107 [facility] Comment on above: Performed By: #### B MP #### [facility] [address] [place] [address] Dr. Jag Waldrop CO2 [Moles/Vol] 23.5 mmol/L Normal 21.0-32.0 [facility] Comment on above: Performed By: #### B MP #### [facility] [address] [address] [address] Jag Waldrop Creatinine [Mass/Vol] 1.29 mg/dL Critically high 0.55-1.02 [facility] Comment on above: Performed By: #### B MP #### [facility] [address] [place] [address] Dr. Jag Waldrop EGFR-AF URUGUAYAN 53 mL/min/1.73m2 Critically low >=60 [facility] Comment on above: Performed By: #### B MP #### [facility] [address] [address] [address] Jag Waldrop EGFR-NON AF URUGUAYAN 44 mL/min/1.73m2 Critically low >=60 [facility] Comment on above: Performed By: #### B MP #### [facility] [address] [place] [address] Dr. Jag Waldrop Glucose [Mass/Vol] 93 mg/dL Normal 74-106 [facility] Comment on above: Performed By: #### B MP #### [facility] [address] [address] [address] Jag Waldrop Potassium [Moles/Vol] 3.7 mmol/L Normal 3.5-5.1 [facility] Comment on above: Performed By: #### B MP #### [facility] [address] [place] [address] Dr. Jag Waldrop Sodium [Moles/Vol] 140 mmol/L Normal 136-145 [facility] Comment on above: Performed By: #### B MP #### [facility] [address] [place] [address] Dr. Jag Waldrop Urea nitrogen [Mass/Vol] 24.0 mg/dL Critically high 7.0-18.0 [facility] Comment on above: Performed By: #### B MP #### [facility] [address] [place] [address] Dr. Jag Waldrop Urea nitrogen/Creatinine [Mass ratio] 18.6 mg/mg Normal [facility] Comment on above: Performed By: #### B MP #### [facility] [address] [place] [address] Dr. Jag Waldrop URINE MICROSCOPIC ONLYon BACTERIA TRACE Abnormal NONE SEEN [facility] Comment on above: Performed By: #### L IPID, BMP #### [facility] [address] [place] [address] Dr. Jag Waldrop Bacteria identified Cx Nom (U) NOT INDICATED Normal [facility] Comment on above: Performed By: #### L IPID, BMP #### [facility] [address] [place] [address] Dr. Jag Waldrop CAST NONE SEEN Normal NONE SEEN [facility] Comment on above: Performed By: #### L IPID, BMP #### [facility] [address] [place] [address] Dr. Jag Waldrop Crystals LM Nom (Urine sed) NONE SEEN Normal NONE SEEN [facility] Comment on above: Performed By: #### L IPID, BMP #### [facility] [address] [place] [address] Dr. Jag Waldrop Epithelial cells LM Ql (Urine sed) RARE Normal NONE SEEN /RARE [facility] Comment on above: Performed By: #### L IPID, BMP #### [facility] [address] [address] [address] Jag Waldrop MUCOUS NONE SEEN Normal NONE SEEN [facility] Comment on above: Performed By: #### L IPID, BMP #### [facility] [address] [address] [address] Jag Waldrop RBC 5-10 Abnormal 0-2 [facility] Comment on above: Performed By: #### L IPID, BMP #### [facility] [address] [address] [address] Jag Waldrop WBC 0-2 Abnormal NONE SEEN [facility] Comment on above: Performed By: #### L IPID, BMP #### [facility] [address] [address] [address] Jag Waldrop MG MAMM SCREEN 3D ORESTES CADon 03-29-2022 MG MAMM SCREEN 3D ORESTES CAD Patient: SHERLY HUMPHREYS Exam Date: 03/29/2022 : 1970 Gender:F Ordering : AGUSTINA JANENE MIDDLETONRufus [facility] Admission #: [id number] Family : Order #: [id number] CLICK HERE TO VIEW EXAM RADIOLOGY REPORT [...] head/neck cancer at age 73. LOCATION: [facility] BREAST COMPOSITION: Scattered areas fibroglandular density. [...] Lobato M.D. on 03/29/2022 at 15:31 Normal [facility] MRI LSPINE WO W CONon 2021 [...] by: KATHY LOBATO Date: 2022-03-23 11:26 Normal [facility] MRI TSPINE WO W CONon 2021 [...] KATHY LOBATO Date: 2022-03-23 12:50 Normal [facility] PROF CHEM 8 (BAS METB)on Anion gap [Moles/Vol] 11.8 mmol/L Normal [facility] Comment on above: Performed By: #### P OCGLUC #### [facility] [address] [address] [address] Jag Waldrop Calcium [Mass/Vol] 9.0 mg/dL Normal 8.5-10.1 [facility] Comment on above: Performed By: #### P OCGLUC #### [facility] [address] [address] [address] Jag Waldrop Chloride [Moles/Vol] 107 mmol/L Normal 98-107 [facility] Comment on above: Performed By: #### P OCGLUC #### [facility] [address] [address] [address] Jag Waldrop CO2 [Moles/Vol] 30.2 mmol/L Normal 21.0-32.0 [facility] Comment on above: Performed By: #### P OCGLUC #### [facility] [address] [address] [address] Jag Waldrop Creatinine [Mass/Vol] 1.32 mg/dL Critically high 0.55-1.02 [facility] Comment on above: Performed By: #### P OCGLUC #### [facility] [address] [address] [address] Jag Waldrop EGFR-AF URUGUAYAN 51 mL/min/1.73m2 Critically low >=60 [facility] Comment on above: Performed By: #### P OCGLUC #### [facility] [address] [address] [address] Jag Waldrop EGFR-NON AF URUGUAYAN 42 mL/min/1.73m2 Critically low >=60 [facility] Comment on above: Performed By: #### P OCGLUC #### [facility] [address] [address] [address] Jag Waldrop Glucose [Mass/Vol] 117 mg/dL Critically high 74-106 T [facility] Comment on above: Performed By: #### P OCGLUC #### [facility] [address] [address] [address] Jag Waldrop Potassium [Moles/Vol] 4.0 mmol/L Normal 3.5-5.1 [facility] Comment on above: Performed By: #### P OCGLUC #### [facility] Laboratory [address] [address] [address] Jag Waldrop Sodium [Moles/Vol] 145 mmol/L Normal 136-145 [facility] Comment on above: Performed By: #### P OCGLUC #### [facility] [address] [address] [address] Jag Waldrop Urea nitrogen [Mass/Vol] 23.0 mg/dL Critically high 7.0-18.0 [facility] Comment on above: Performed By: #### P OCGLUC #### [facility] [address] [address] [address] Jag Waldrop Urea nitrogen/Creatinine [Mass ratio] 17.4 mg/mg Normal [facility] Comment on above: Performed By: #### P OCGLUC #### [facility] [address] [address] [address] Jag Waldrop CBC AUTO DIFFon 02-19-2022 BASO # 0.1 103/ul Normal 0.0-0.1 [facility] Comment on above: Performed By: #### P OCGLUC #### [facility] [address] [address] [address] Jag Waldrop Basophils/100 WBC (Bld) 1.0 % Normal 0.2-2.0 [facility] Comment on above: Performed By: #### P OCGLUC #### [facility] [address] [place] [address] Dr. Jag Waldrop EO # 0.1 103/ul Normal 0.0-0.7 [facility] Comment on above: Performed By: #### P OCGLUC #### [facility] [address] [place] [address] Dr. Jag Waldrop Eosinophils/100 WBC (Bld) 1.9 % Normal 0.9-7.0 [facility] Comment on above: Performed By: #### P OCGLUC #### [facility] [address] [place] [address] Dr. Jag Waldrop Erythrocyte distribution width (RBC) [Ratio] 13.2 % Normal 11.0-15.0 [facility] Comment on above: Performed By: #### P OCGLUC #### [facility] [address] [place] [address] Dr. Jag Waldrop Hematocrit (Bld) [Volume fraction] 36.7 % Normal 36.0-48.0 [facility] Comment on above: Performed By: #### P OCGLUC #### [facility] [address] [place] [address] Dr. Jag Waldrop Hemoglobin (Bld) [Mass/Vol] 11.4 g/dL Critically low 12.0-16.0 [facility] Comment on above: Performed By: #### P OCGLUC #### [facility] [address] [place] [address] Dr. Jag Waldrop IG # 0.03 10e3/ul Normal 0.00-0.03 [facility] Comment on above: Performed By: #### P OCGLUC #### [facility] [address] [place] [address] Dr. Jag Waldrop IG % 0.5 % Normal 0.0-0.5 [facility] Comment on above: Performed By: #### P OCGLUC #### [facility] [address] [place] [address] Dr. Jag Waldrop LYMPH # 2.1 103/ul Normal 1.2-3.8 [facility] Comment on above: Performed By: #### P OCGLUC #### [facility] [address] [place] [address] Dr. Jag Waldrop Lymphocytes/100 WBC (Bld) 34.1 % Normal 20.5-60.0 [facility] Comment on above: Performed By: #### P OCGLUC #### [facility] [address] [place] [address] Dr. Jag Waldrop MANUAL DIFF REQ NO Normal [facility] Comment on above: Performed By: #### P OCGLUC #### [facility] [address] [place] [address] Dr. Jag Waldrop MCH (RBC) [Entitic mass] 28.4 pg Normal 26.7-34.0 [facility] Comment on above: Performed By: #### P OCGLUC #### [facility] [address] [place] [address] Dr. Jag Waldrop MCHC (RBC) [Mass/Vol] 31.1 g/dL Normal 29.9-35.2 [facility] Comment on above: Performed By: #### P OCGLUC #### [facility] [address] [place] [address] Dr. Jag Waldrop MCV (RBC) [Entitic vol] 91.5 fL Normal 81.0-99.0 [facility] Comment on above: Performed By: #### P OCGLUC #### [facility] [address] [place] [address] Dr. Jag Waldrop MONO # 0.5 103/ul Normal 0.3-0.8 [facility] Comment on above: Performed By: #### P OCGLUC #### [facility] [address] [place] [address] Dr. Jag Waldrop Monocytes/100 WBC (Bld) 8.4 % Normal 1.7-12.0 [facility] Comment on above: Performed By: #### P OCGLUC #### [facility] [address] [place] [address] Dr. Jag Waldrop NEUT # 3.3 103/ul Normal 1.4-6.5 [facility] Comment on above: Performed By: #### P OCGLUC #### [facility] [address] [place] [address] Dr. Jag Waldrop Neutrophils/100 WBC (Bld) 54.1 % Normal 43.0-75.0 [facility] Comment on above: Performed By: #### P OCGLUC #### [facility] [address] [place] [address] Dr. Jag Waldrop Platelet mean volume (Bld) [Entitic vol] 10.6 fL Normal 9.5-13.5 [facility] Comment on above: Performed By: #### P OCGLUC #### [facility] [address] [place] [address] Dr. Jag Waldrop PLT 294 103/ul Normal 150-450 [facility] Comment on above: Performed By: #### P OCGLUC #### [facility] [address] [place] [address] Dr. Jag Waldrop RBC 4.01 106/ul Critically low 4.20-5.40 [facility] Comment on above: Performed By: #### P OCGLUC #### [facility] [address] [place] [address] Dr. Jag Waldrop WBC 6.2 103/ul Normal 4.0-11.0 [facility] Comment on above: Performed By: #### P OCGLUC #### [facility] [address] [place] [address] Dr. Jag Waldrop CRPon 02-19-2022 CRP [Mass/Vol] mg/L Normal <=1.0 [facility] Comment on above: Performed By: #### E RUR #### [facility] [address] [place] [address] TSPINE WO CONon [...] ALEX AVINA Date: 2022-02-19 19:25 Normal [facility] ER URINE PROFILEon 2 Bilirubin Ql (U) Negative Normal NEGATIVE [facility] Comment on above: Performed By: #### P OCGLUC #### [facility] [address] [place] [address] Dr. Jag Waldrop Clarity (U) CLEAR Normal CLEAR [facility] Comment on above: Performed By: #### P OCGLUC #### [facility] [address] [place] [address] Dr. Jag Waldrop Color (U) LT. YELLOW Normal YELLOW [facility] Comment on above: Performed By: #### P OCGLUC #### [facility] [address] [place] [address] Dr. Jag Waldrop ERUAHD A micrscopic examina tion will be performed if indicated. Normal [facility] Comment on above: Performed By: #### P OCGLUC #### [facility] [address] [place] [address] Dr. Jag Waldrop Glucose Ql (U) Negative Normal NEGATIVE [facility] Comment on above: Performed By: #### P OCGLUC #### [facility] [address] [place] [address] Dr. Jag Waldrop Hemoglobin Ql (U) Negative Normal NEGATIVE [facility] Comment on above: Performed By: #### P OCGLUC #### [facility] [address] [place] [address] Dr. Jag Waldrop Ketones Ql (U) Negative Normal NEGATIVE [facility] Comment on above: Performed By: #### P OCGLUC #### [facility] [address] [place] [address] Dr. Jag Waldrop LEUKOCYTES Negative Normal NEGATIVE [facility] Comment on above: Performed By: #### P OCGLUC #### [facility] [address] [place] [address] Dr. Jag Waldrop Nitrite Ql (U) Negative Normal NEGATIVE [facility] Comment on above: Performed By: #### P OCGLUC #### [facility] [address] [place] [address] Dr. Jag Waldrop pH (U) 5.5 [pH] Normal 5-9 [facility] Comment on above: Performed By: #### P OCGLUC #### [facility] [address] [place] [address] Dr. aJg Waldrop SPEC GRAVITY 1.020 Normal 1.005-<=1.[address] [place] [address] Comment on above: Performed By: #### P OCGLUC #### [facility] [address] [place] [address] Dr. Jag Waldrop UA PROTEIN Negative Normal NEGATIVE/ TRACE [facility] Comment on above: Performed By: #### P OCGLUC #### [facility] [address] [place] [address] Dr. Jag Waldrop UR MICRO IND NOT INDICATED Normal [facility] Comment on above: Performed By: #### P OCGLUC #### [facility] [address] [place] [address] Dr. Jag Waldrop Urobilinogen Qn (U) 0.2 {Chris'U}/dL Normal 0.2 - 1. 0 [facility] Comment on above: Performed By: #### P OCGLUC #### [facility] [address] [place] [address] Dr. Jag Waldrop PROF CHEM 8 (BAS METB)on Anion gap [Moles/Vol] 10.8 mmol/L Normal [facility] Comment on above: Performed By: #### E RUR #### [facility] [address] [address] [address] Jag Waldrop Calcium [Mass/Vol] 9.0 mg/dL Normal 8.5-10.1 [facility] Comment on above: Performed By: #### E RUR #### [facility] [address] [address] [address] Jag Waldrop Chloride [Moles/Vol] 106 mmol/L Normal 98-107 [facility] Comment on above: Performed By: #### E RUR #### [facility] [address] [address] [address] Jag Waldrop CO2 [Moles/Vol] 28.1 mmol/L Normal 21.0-32.0 [facility] Comment on above: Performed By: #### E RUR #### [facility] [address] [place] [address] Dr. Jag Waldrop Creatinine [Mass/Vol] 1.06 mg/dL Critically high 0.55-1.02 [facility] Comment on above: Performed By: #### E RUR #### [facility] [address] [place] [address] Dr. Jag Waldrop EGFR-AF URUGUAYAN >60 Normal >=60 [facility] Comment on above: Performed By: #### E RUR #### [facility] [address] [place] [address] Dr. Jag Waldrop EGFR-NON AF URUGUAYAN 55 mL/min/1.73m2 Critically low >=60 [facility] Comment on above: Performed By: #### E RUR #### [facility] [address] [address] [address] Jag Waldrop Glucose [Mass/Vol] 89 mg/dL Normal 74-106 [facility] Comment on above: Performed By: #### E RUR #### [facility] [address] [address] [address] Jag Waldrop Potassium [Moles/Vol] 3.9 mmol/L Normal 3.5-5.1 [facility] Comment on above: Performed By: #### E RUR #### [facility] [address] [address] [address] Jag Waldrop Sodium [Moles/Vol] 141 mmol/L Normal 136-145 [facility] Comment on above: Performed By: #### E RUR #### [facility] [address] [address] [address] Jag Waldrop Urea nitrogen [Mass/Vol] 19.0 mg/dL Critically high 7.0-18.0 [facility] Comment on above: Performed By: #### E RUR #### [facility] [address] [place] [address] Dr. Jag Waldrop Urea nitrogen/Creatinine [Mass ratio] 17.9 mg/mg Normal [facility] Comment on above: Performed By: #### E RUR #### [facility] [address] [place] [address] Dr. Jag Waldrop SED RATE [facility] 2021 SED RATE 19 mm/hr Normal <=30 [facility] Comment on above: Performed By: #### L IPID, BMP #### [facility] [address] [place] [address] Dr. Jag Waldrop PROF CHEM 8 (BAS METB)on Anion gap [Moles/Vol] 17.3 mmol/L Normal [facility] Comment on above: Performed By: #### L IPID, BMP #### [facility] [address] [place] [address] Dr. Jag Waldrop Calcium [Mass/Vol] 9.2 mg/dL Normal 8.5-10.1 [facility] Comment on above: Performed By: #### L IPID, BMP #### [facility] [address] [place] [address] Dr. Jag Waldrop Chloride [Moles/Vol] 108 mmol/L Critically high 98-107 [facility] Comment on above: Performed By: #### L IPID, BMP #### [facility] [address] [place] [address] Dr. Jag Waldrop CO2 [Moles/Vol] 20.0 mmol/L Critically low 21.0-32.0 [facility] Comment on above: Performed By: #### L IPID, BMP #### [facility] [address] [place] [address] Dr. Jag Waldrop Creatinine [Mass/Vol] 1.40 mg/dL Critically high 0.55-1.02 [facility] Comment on above: Performed By: #### L IPID, BMP #### [facility] [address] [place] [address] Dr. Jag Waldrop EGFR-AF URUGUAYAN 48 mL/min/1.73m2 Critically low >=60 [facility] Comment on above: Performed By: #### L IPID, BMP #### [facility] [address] [place] [address] Dr. Jag Waldrop EGFR-NON AF URUGUAYAN 40 mL/min/1.73m2 Critically low >=60 [facility] Comment on above: Performed By: #### L IPID, BMP #### [facility] [address] [place] [address] Dr. Jag Waldrop Glucose [Mass/Vol] 126 mg/dL Critically high 74-106 [facility] Comment on above: Performed By: #### L IPID, BMP #### [facility] [address] [place] [address] Dr. Jag Waldrop Potassium [Moles/Vol] 5.3 mmol/L Critically high 3.5-5.1 [facility] Comment on above: Performed By: #### L IPID, BMP #### [facility] [address] [place] [address] Dr. Jag Waldrop Sodium [Moles/Vol] 140 mmol/L Normal 136-145 [facility] Comment on above: Performed By: #### L IPID, BMP #### [facility] [address] [place] [address] Dr. Jag Waldrop Urea nitrogen [Mass/Vol] 31.0 mg/dL Critically high 7.0-18.0 [facility] Comment on above: Performed By: #### L IPID, BMP #### [facility] [address] [place] [address] Dr. Jag Waldrop Urea nitrogen/Creatinine [Mass ratio] 22.1 mg/mg Normal [facility] Comment on above: Performed By: #### L IPID, BMP #### [facility] [address] [address] [address] Jag Waldrop CBC AUTO DIFFon 01-23-2022 BASO # 0.1 103/ul Normal 0.0-0.1 [facility] Comment on above: Performed By: #### C BC #### [facility] [address] [place] [address] Dr. Jag Waldrop Basophils/100 WBC (Bld) 1.0 % Normal 0.2-2.0 [facility] Comment on above: Performed By: #### C BC #### [facility] [address] [place] [address] Dr. Jag Waldrop EO # 0.2 103/ul Normal 0.0-0.7 [facility] Comment on above: Performed By: #### C BC #### [facility] [address] [place] [address] Dr. Jag Waldrop Eosinophils/100 WBC (Bld) 3.3 % Normal 0.9-7.0 [facility] Comment on above: Performed By: #### C BC #### [facility] [address] [place] [address] Dr. Jag Waldrop Erythrocyte distribution width (RBC) [Ratio] 13.2 % Normal 11.0-15.0 [facility] Comment on above: Performed By: #### C BC #### [facility] [address] [place] [address] Dr. Jag Waldrop Hematocrit (Bld) [Volume fraction] 35.6 % Critically low 36.0-48.0 [facility] Comment on above: Performed By: #### C BC #### [facility] [address] [place] [address] Dr. Jag Waldrop Hemoglobin (Bld) [Mass/Vol] 10.6 g/dL Critically low 12.0-16.0 [facility] Comment on above: Performed By: #### C BC #### [facility] [address] [place] [address] Dr. Jag Waldrop IG # 0.01 10e3/ul Normal 0.00-0.03 [facility] Comment on above: Performed By: #### C BC #### [facility] [address] [place] [address] Dr. Jag Waldrop IG % 0.2 % Normal 0.0-0.5 [facility] Comment on above: Performed By: #### C BC #### [facility] [address] [place] [address] Dr. Jag Waldrop LYMPH # 1.7 103/ul Normal 1.2-3.8 [facility] Comment on above: Performed By: #### C BC #### [facility] [address] [place] [address] Dr. Jag Waldrop Lymphocytes/100 WBC (Bld) 35.4 % Normal 20.5-60.0 [facility] Comment on above: Performed By: #### C BC #### [facility] [address] [place] [address] Dr. Jag Waldrop MANUAL DIFF REQ NO Normal [facility] Comment on above: Performed By: #### C BC #### [facility] [address] [place] [address] Dr. Jag Waldrop MCH (RBC) [Entitic mass] 29.0 pg Normal 26.7-34.0 [facility] Comment on above: Performed By: #### C BC #### [facility] [address] [place] [address] Dr. Jag Waldrop MCHC (RBC) [Mass/Vol] 29.8 g/dL Critically low 29.9-35.2 [facility] Comment on above: Performed By: #### C BC #### [facility] [address] [place] [address] Dr. Jag Waldrop MCV (RBC) [Entitic vol] 97.3 fL Normal 81.0-99.0 [facility] Comment on above: Performed By: #### C BC #### [facility] [address] [place] [address] Dr. Jag Waldrop MONO # 0.3 103/ul Normal 0.3-0.8 [facility] Comment on above: Performed By: #### C BC #### [facility] [address] [place] [address] Dr. Jag Waldrop Monocytes/100 WBC (Bld) 6.8 % Normal 1.7-12.0 [facility] Comment on above: Performed By: #### C BC #### [facility] [address] [place] [address] Dr. Jag Waldrop NEUT # 2.6 103/ul Normal 1.4-6.5 [facility] Comment on above: Performed By: #### C BC #### [facility] [address] [place] [address] Dr. Jag Waldrop Neutrophils/100 WBC (Bld) 53.3 % Normal 43.0-75.0 [facility] Comment on above: Performed By: #### C BC #### [facility] [address] [place] [address] Dr. Jag Waldrop Platelet mean volume (Bld) [Entitic vol] 11.0 fL Normal 9.5-13.5 [facility] Comment on above: Performed By: #### C BC #### [facility] [address] [place] [address] Dr. Jag Waldrop PLT 230 103/ul Normal 150-450 [facility] Comment on above: Performed By: #### C BC #### [facility] [address] [place] [address] Dr. Jag Waldrop RBC 3.66 106/ul Critically low 4.20-5.40 [facility] Comment on above: Performed By: #### C BC #### [facility] [address] [place] [address] Dr. Jag Waldrop WBC 4.8 103/ul Normal 4.0-11.0 [facility] Comment on above: Performed By: #### C BC #### [facility] [address] [place] [address] Dr. Jag Waldrop FERRITINon 01-23-2022 Ferritin [Mass/Vol] 35.0 ng/mL Normal 8.0-252.0 [facility] Comment on above: Performed By: #### L IPID, BMP #### [facility] [address] [place] [address] Dr. aJg Waldrop IRONon 01-23-2022 Iron [Mass/Vol] 71.0 ug/dL Normal 50.0-170.0 [facility] Comment on above: Performed By: #### L IPID, BMP #### [facility] [address] [address] [address] Jag Waldrop LIPID PROFILEon 01-23-2022 CHOL-HDL RATIO NORM SEE BELOW Normal [facility] Comment on above: Result Comment: 3.3 - 4.4 LOW RISK 4.4 - 7.1 AVERAGE RISK 7.1 - 11.0 MODERATE RISK >11.0 HIGH RISK Performed By: #### L IPID, BMP #### [facility] [address] [place] [address] Dr. Jag Waldrop Cholesterol [Mass/Vol] 133 mg/dL Normal <=200 Th [facility] Comment on above: Performed By: #### L IPID, BMP #### [facility] [address] [place] [address] Dr. Jag Waldrop Cholesterol in HDL [Mass/Vol] 41 mg/dL Normal 40-60 [facility] Comment on above: Performed By: #### L IPID, BMP #### [facility] [address] [address] [address] Jag Waldrop Cholesterol in LDL [Mass/Vol] 70.8 mg/dL Normal [facility] Comment on above: Performed By: #### L IPID, BMP #### [facility] [address] [place] [address] Dr. Jag Waldrop Cholesterol.total/Chol esterol in HDL [Mass ratio] 3.2 {ratio} Normal [facility] Comment on above: Performed By: #### L IPID, BMP #### [facility] [address] [place] [address] Dr. Jag Waldrop HDL NORMAL > or = 60 mg/dl - LO W CARDIOVASCULAR RISK <40 mg/dl - HIGH CARDIOVASCULAR RISK Normal [facility] Comment on above: Performed By: #### L IPID, BMP #### [facility] [address] [place] [address] Dr. Jag Waldrop LDL CALC NORMAL SEE BELOW Normal [facility] Comment on above: Result Comment: <100 mg/dl OPTIMAL 100 - 129 mg/dl NEAR OR ABOVE OPTIMAL 130 - 159 mg/dl BORDERLINE HIGH 160 - 189 mg/dl HIGH >190 mg/dl VERY HIGH Performed By: #### L IPID, BMP #### [facility] [address] [place] [address] Dr. Jag Waldrop Triglyceride [Mass/Vol] 106 mg/dL Normal <=150 [facility] Comment on above: Performed By: #### L IPID, BMP #### [facility] [address] [place] [address] Dr. Jag Waldrop VLDL CALC 21.2 mg/dL Normal [facility] Comment on above: Performed By: #### L IPID, BMP #### [facility] [address] [place] [address] Dr. Jag Waldrop PROF CHEM 8 (BAS METB)on Anion gap [Moles/Vol] 18.2 mmol/L Normal [facility] Comment on above: Performed By: #### L IPID, BMP #### [facility] [address] [place] [address] Dr. Jag Waldrop Calcium [Mass/Vol] 9.3 mg/dL Normal 8.5-10.1 [facility] Comment on above: Performed By: #### L IPID, BMP #### [facility] [address] [place] [address] Dr. Jag Waldrop Chloride [Moles/Vol] 111 mmol/L Critically high 98-107 [facility] Comment on above: Performed By: #### L IPID, BMP #### [facility] [address] [place] [address] Dr. Jag Waldrop CO2 [Moles/Vol] 19.9 mmol/L Critically low 21.0-32.0 [facility] Comment on above: Performed By: #### L IPID, BMP #### [facility] [address] [address] [address] Jag Waldrop Creatinine [Mass/Vol] 1.27 mg/dL Critically high 0.55-1.02 [facility] Comment on above: Performed By: #### L IPID, BMP #### [facility] [address] [place] [address] Dr. Jag Waldrop EGFR-AF URUGUAYAN 54 mL/min/1.73m2 Critically low >=60 [facility] Comment on above: Performed By: #### L IPID, BMP #### [facility] [address] [address] [address] Jag Waldrop EGFR-NON AF URUGUAYAN 44 mL/min/1.73m2 Critically low >=60 [facility] Comment on above: Performed By: #### L IPID, BMP #### [facility] [address] [address] [address] Jag Waldrop Glucose [Mass/Vol] 129 mg/dL Critically high 74-106 [facility] Comment on above: Performed By: #### L IPID, BMP #### [facility] [address] [address] [address] Jag Waldrop Potassium [Moles/Vol] 6.1 mmol/L Critically high 3.5-5.1 [facility] Comment on above: Performed By: #### L IPID, BMP #### [facility] [address] [address] [address] Jag Waldrop Sodium [Moles/Vol] 142 mmol/L Normal 136-145 [facility] Comment on above: Performed By: #### L IPID, BMP #### [facility] [address] [address] [address] Jag Waldrop Urea nitrogen [Mass/Vol] 35.0 mg/dL Critically high 7.0-18.0 [facility] Comment on above: Performed By: #### L IPID, BMP #### [facility] [address] [address] [address] Jag Waldrop Urea nitrogen/Creatinine [Mass ratio] 27.6 mg/mg Normal [facility] Comment on above: Performed By: #### L IPID, BMP #### [facility] [address] [place] [address] Dr. Jag Waldrop VITAMIN B12on 01-23-2022 Cobalamin (Vitamin B12) [Mass/Vol] 267.0 pg/mL Normal 193.0-986.0 [facility] Comment on above: Performed By: #### L IPID, BMP #### [facility] [address] [place] [address] Dr. Jag Waldrop XR CSPINE 2_3 VIEWSon [...] KATHY LOBATO Date: 2022-01-12 09:39 Normal [facility] BNPon 12-21-2021 Natriuretic peptide B (Bld) [Mass/Vol] 283.0 pg/mL Normal <=900.0 [facility] Comment on above: Performed By: #### P OCGLUC #### [facility] [address] [place] [address] Dr. Jag Waldrop CBC AUTO DIFFon 12-21-2021 BASO # 0.1 103/ul Normal 0.0-0.1 [facility] Comment on above: Performed By: #### L IPID, BMP #### [facility] [address] [place] [address] Dr. Jag Waldrop Basophils/100 WBC (Bld) 0.8 % Normal 0.2-2.0 [facility] Comment on above: Performed By: #### L IPID, BMP #### [facility] [address] [place] [address] Dr. aJg Waldrop EO # 0.3 103/ul Normal 0.0-0.7 [facility] Comment on above: Performed By: #### L IPID, BMP #### [facility] [address] [place] [address] Dr. Jag Waldrop Eosinophils/100 WBC (Bld) 3.8 % Normal 0.9-7.0 [facility] Comment on above: Performed By: #### L IPID, BMP #### [facility] [address] [place] [address] Dr. Jag Waldrop Erythrocyte distribution width (RBC) [Ratio] 13.2 % Normal 11.0-15.0 [facility] Comment on above: Performed By: #### L IPID, BMP #### [facility] [address] [place] [address] Dr. Jag Waldrop Hematocrit (Bld) [Volume fraction] 34.8 % Critically low 36.0-48.0 [facility] Comment on above: Performed By: #### L IPID, BMP #### [facility] [address] [place] [address] Dr. Jag Waldrop Hemoglobin (Bld) [Mass/Vol] 10.6 g/dL Critically low 12.0-16.0 [facility] Comment on above: Performed By: #### L IPID, BMP #### [facility] [address] [place] [address] Dr. Jag Waldrop IG # 0.02 10e3/ul Normal 0.00-0.03 [facility] Comment on above: Performed By: #### L IPID, BMP #### [facility] [address] [place] [address] Dr. Jag Waldrop IG % 0.3 % Normal 0.0-0.5 [facility] Comment on above: Performed By: #### L IPID, BMP #### [facility] [address] [place] [address] Dr. Jag Waldrop LYMPH # 1.7 103/ul Normal 1.2-3.8 [facility] Comment on above: Performed By: #### L IPID, BMP #### [facility] [address] [place] [address] Dr. Jag Waldrop Lymphocytes/100 WBC (Bld) 23.8 % Normal 20.5-60.0 [facility] Comment on above: Performed By: #### L IPID, BMP #### [facility] [address] [place] [address] Dr. Jag Waldrop MANUAL DIFF REQ NO Normal [facility] Comment on above: Performed By: #### L IPID, BMP #### [facility] [address] [place] [address] Dr. Jag Waldrop MCH (RBC) [Entitic mass] 29.1 pg Normal 26.7-34.0 [facility] Comment on above: Performed By: #### L IPID, BMP #### [facility] [address] [place] [address] Dr. Jag Waldrop MCHC (RBC) [Mass/Vol] 30.5 g/dL Normal 29.9-35.2 [facility] Comment on above: Performed By: #### L IPID, BMP #### [facility] [address] [place] [address] Dr. Jag Waldrop MCV (RBC) [Entitic vol] 95.6 fL Normal 81.0-99.0 [facility] Comment on above: Performed By: #### L IPID, BMP #### [facility] [address] [place] [address] Dr. Jag Waldrop MONO # 0.7 103/ul Normal 0.3-0.8 [facility] Comment on above: Performed By: #### L IPID, BMP #### [facility] [address] [place] [address] Dr. Jag Waldrop Monocytes/100 WBC (Bld) 9.3 % Normal 1.7-12.0 [facility] Comment on above: Performed By: #### L IPID, BMP #### [facility] [address] [place] [address] Dr. Jag Waldrop NEUT # 4.4 103/ul Normal 1.4-6.5 [facility] Comment on above: Performed By: #### L IPID, BMP #### [facility] [address] [place] [address] Dr. Jag Waldrop Neutrophils/100 WBC (Bld) 62.0 % Normal 43.0-75.0 [facility] Comment on above: Performed By: #### L IPID, BMP #### [facility] [address] [place] [address] Dr. Jag Waldrop Platelet mean volume (Bld) [Entitic vol] 11.5 fL Normal 9.5-13.5 [facility] Comment on above: Performed By: #### L IPID, BMP #### [facility] [address] [place] [address] Dr. Jag Waldrop PLT 235 103/ul Normal 150-450 [facility] Comment on above: Performed By: #### L IPID, BMP #### [facility] [address] [place] [address] Dr. Jag Waldrop RBC 3.64 106/ul Critically low 4.20-5.40 [facility] Comment on above: Performed By: #### L IPID, BMP #### [facility] [address] [place] [address] Dr. Jag Waldrop WBC 7.1 103/ul Normal 4.0-11.0 [facility] Comment on above: Performed By: #### L IPID, BMP #### [facility] [address] [place] [address] Dr. Jag Waldrop CRPon 12-21-2021 CRP 1.1 mg/dL Critically high <=1.0 [facility] Comment on above: Performed By: #### B MP #### [facility] [address] [place] [address] Dr. Jag Waldrop [facility]on SARS-CoV-2 (COVID-19) RNA PRINCE+probe Ql (Unsp spec) Not detected Normal NOT DETECTED [facility] Comment on above: Result Comment: This test is not yet approved or cleared by the [place] FDA. When there are no FDA-approved or cleared tests available, and other criteria are met, FDA can make tests available under an emergency access mechanism called an Emergency Use Authorization (EUA). The EUA for this test is supported by the [place] of Health and Human Service's (HHS's) declaration [...] Performed By: #### L IPID, BMP #### [facility] [address] [place] [address] Dr. Jag Waldrop PROF CHEM 8 (BAS METB)on Anion gap [Moles/Vol] 13.3 mmol/L Normal [facility] Comment on above: Performed By: #### B MP #### [facility] [address] [place] [address] Dr. Jag Waldrop Calcium [Mass/Vol] 8.7 mg/dL Normal 8.5-10.1 [facility] Comment on above: Performed By: #### B MP #### [facility] [address] [place] [address] Dr. Jag Waldrop Chloride [Moles/Vol] 107 mmol/L Normal 98-107 [facility] Comment on above: Performed By: #### B MP #### [facility] [address] [place] [address] Dr. Jag Waldrop CO2 [Moles/Vol] 23.2 mmol/L Normal 21.0-32.0 [facility] Comment on above: Performed By: #### B MP #### [facility] [address] [place] [address] Dr. Jag Waldrop Creatinine [Mass/Vol] 1.55 mg/dL Critically high 0.55-1.02 [facility] Comment on above: Performed By: #### B MP #### [facility] [address] [address] [address] Jag Waldrop EGFR-AF URUGUAYAN 43 mL/min/1.73m2 Critically low >=60 [facility] Comment on above: Performed By: #### B MP #### [facility] [address] [address] [address] Jag Waldrop EGFR-NON AF URUGUAYAN 35 mL/min/1.73m2 Critically low >=60 [facility] Comment on above: Performed By: #### B MP #### [facility] [address] [address] [address] Jag Waldrop Glucose [Mass/Vol] 123 mg/dL Critically high 74-106 [facility] Comment on above: Performed By: #### B MP #### [facility] [address] [address] [address] Jag Waldrop Potassium [Moles/Vol] 4.5 mmol/L Normal 3.5-5.1 [facility] Comment on above: Performed By: #### B MP #### [facility] [address] [place] [address] Dr. aJg Waldrop Sodium [Moles/Vol] 139 mmol/L Normal 136-145 [facility] Comment on above: Performed By: #### B MP #### [facility] [address] [address] [address] Jag Waldrop Urea nitrogen [Mass/Vol] 36.0 mg/dL Critically high 7.0-18.0 [facility] Comment on above: Performed By: #### B MP #### [facility] [address] [address] [address] Jag Waldrop Urea nitrogen/Creatinine [Mass ratio] 23.2 mg/mg Normal [facility] Comment on above: Performed By: #### B MP #### [facility] [address] [address] [address] Jag Waldrop SED RATE [facility] 2021 SED RATE 26 mm/hr Normal <=30 [facility] Comment on above: Performed By: #### S EDR #### [facility] [address] [place] [address] Dr. Jag Waldrop XR CHEST 2 Von [...] by: ALEX ALLEN Date: 2021-12-21 18:35 Normal [facility] OVA AND PARASITE EXAMINATION on 12-06-2021 Ova + Parasite Exam Final report Normal [facility] Comment on above: Result Comment: Thes e results were obtained using wet preparation(s) and trichrome stained smear. This test does not include testing for Cryptosporidium parvum, Cyclospora, or Microsporidia. Performed By: #### L IPID, BMP #### [facility] [address] [place] [address] Dr. Jag Waldrop Result 1 Comment Normal [facility] Comment on above: Result Comment: No o va, cysts, or parasites seen. . One negative specimen does not rule out the possibility of a parasitic infection. Performed By: #### L IPID, BMP #### [facility] [address] [place] [address] Dr. Jag Waldrop STOOL CULTUREon 12-05-2021 Campylobacter Culture Final report Normal [facility] Comment on above: Performed By: #### C XSTOOL #### [facility] [address] [place] [address] Dr. Jag Waldrop E coli Shiga Toxin EIA Negative Normal Negative [facility] Comment on above: Performed By: #### C XSTOOL #### [facility] [address] [place] [address] Dr. Jag Waldrop Result 1 Comment Normal [facility] Comment on above: Result Comment: No S almonella or Shigella recovered. Performed By: #### C XSTOOL #### [facility] [address] [place] [address] Dr. Jag Waldrop Result Comment: No C ampylobacter species isolated. Salmonella/Shigella Screen Final report Normal [facility] Comment on above: Performed By: #### C XSTOOL #### [facility] [address] [place] [address] Dr. Jag Waldrop GI PANEL (PCR)on 11-30-2021 Adenovirus F 40/41 Not detected Normal NOT DETECTED [facility] Comment on above: Performed By: #### E RUR #### [facility] [address] [place] [address] Dr. Jag Waldrop Astrovirus Not detected Normal NOT DETECTED [facility] Comment on above: Performed By: #### E RUR #### [facility] [address] [place] [address] Dr. Jag Waldrop C. Diff toxin A/B Detected Critically abnormal NOT DETECTED [facility] Comment on above: Performed By: #### E RUR #### [facility] [address] [place] [address] Dr. Jag Waldrop Campylobacter Not detected Normal NOT DETECTED [facility] Comment on above: Performed By: #### E RUR #### [facility] [address] [place] [address] Dr. Jag Waldrop Cryptosporidium Not detected Normal NOT DETECTED [facility] Comment on above: Performed By: #### E RUR #### [facility] [address] [place] [address] Dr. Jag Waldrop Cyclos. Cayetanensis Not detected Normal NOT DETECTED [facility] Comment on above: Performed By: #### E RUR #### [facility] [address] [place] [address] Dr. Jag Waldrop E. Coli O157 Not Applicable Normal Not Applicable [facility] Comment on above: Performed By: #### E RUR #### [facility] [address] [place] [address] Dr. Jag Waldrop E. histolytica Not detected Normal NOT DETECTED [facility] Comment on above: Performed By: #### E RUR #### [facility] [address] [place] [address] Dr. Jag Waldrop EAEC Not detected Normal NOT DETECTED [facility] Comment on above: Performed By: #### E RUR #### [facility] [address] [place] [address] Dr. Jag Waldrop EIEC Not detected Normal NOT DETECTED [facility] Comment on above: Performed By: #### E RUR #### [facility] [address] [place] [address] Dr. Jag Waldrop EPEC Not detected Normal NOT DETECTED [facility] Comment on above: Performed By: #### E RUR #### [facility] [address] [place] [address] Dr. Jag Waldrop ETEC Not detected Normal NOT DETECTED [facility] Comment on above: Performed By: #### E RUR #### [facility] [address] [place] [address] Dr. Jag Waldrop G. Lamblia Not detected Normal NOT DETECTED [facility] Comment on above: Performed By: #### E RUR #### [facility] [address] [place] [address] Dr. Jag TANG CONTROLS PASSED Normal [facility] Comment on above: Performed By: #### E RUR #### [facility] [address] [place] [address] Dr. Jag LEONARD NIKHIL HEADER GI PANEL BACTERIA Normal T [facility] Comment on above: Performed By: #### E RUR #### [facility] [address] [place] [address] Dr. Jag SANCHEZ ECOLI GI PANEL DIARRHEAGEN IC E.COLI / SHIGELLA Normal [facility] Comment on above: Performed By: #### E RUR #### [facility] [address] [place] [address] Dr. Jag SANCHEZ INFO SEE BELOW Normal [facility] Comment on above: Result Comment: EAEC - Enteroaggregative E. Coli EPEC- Enteropathogenic E. Coli ETEC- Enterotoxigenic E. Coli lt/st STEC- Shigella-like toxin-producing E. Coli stx1/stx2 EIEC- Shigella/Enteroinvasive E. Coli Performed By: #### E RUR #### [facility] [address] [place] [address] Dr. Jag SANCHEZ PARASITES GI PANEL PARASITES Normal [facility] Comment on above: Performed By: #### E RUR #### [facility] [address] [place] [address] Dr. Jag SANCHEZ VIRUS GI PANEL VIRUSES Normal [facility] Comment on above: Performed By: #### E RUR #### [facility] [address] [place] [address] Dr. Jag Waldrop Norovirus GI/GII Not detected Normal NOT DETECTED [facility] Comment on above: Performed By: #### E RUR #### [facility] [address] [place] [address] Dr. Jag Waldrop P. Shigelloides Not detected Normal NOT DETECTED [facility] Comment on above: Performed By: #### E RUR #### [facility] [address] [place] [address] Dr. Jag Waldrop Rotavirus A Not detected Normal NOT DETECTED [facility] Comment on above: Performed By: #### E RUR #### [facility] [address] [place] [address] Dr. Jag Waldrop Salmonella Not detected Normal NOT DETECTED [facility] Comment on above: Performed By: #### E RUR #### [facility] [address] [place] [address] Dr. Jag Waldrop Sapovirus Not detected Normal NOT DETECTED [facility] Comment on above: Performed By: #### E RUR #### [facility] [address] [place] [address] Dr. Jag Waldrop STEC Not detected Normal NOT DETECTED [facility] Comment on above: Performed By: #### E RUR #### [facility] [address] [place] [address] Dr. Jag Waldrop Vibrio Not detected Normal NOT DETECTED [facility] Comment on above: Performed By: #### E RUR #### [facility] [address] [place] [address] Dr. Jag Waldrop Vibrio Cholera Not detected Normal NOT DETECTED [facility] Comment on above: Performed By: #### E RUR #### [facility] [address] [place] [address] Dr. Jag Waldrop Y. Enterocolitica Not detected Normal NOT DETECTED [facility] Comment on above: Performed By: #### E RUR #### [facility] [address] [place] [address] Dr. Jag Waldrop OCC BLD IMMUNO SCREENon 11-14 OCCULT BLOOD Negative Normal NEGATIVE [facility] Comment on above: Performed By: #### L IPID, BMP #### [facility] [address] [place] [address] Dr. Jag Waldrop PROF CHEM 8 (BAS METB)on Anion gap [Moles/Vol] 15.5 mmol/L Normal [facility] Comment on above: Performed By: #### P OCGLUC #### [facility] [address] [place] [address] Dr. Jag Waldrop Calcium [Mass/Vol] 9.1 mg/dL Normal 8.5-10.1 [facility] Comment on above: Performed By: #### P OCGLUC #### [facility] [address] [place] [address] Dr. Jag Waldrop Chloride [Moles/Vol] 106 mmol/L Normal 98-107 [facility] Comment on above: Performed By: #### P OCGLUC #### [facility] [address] [place] [address] Dr. Jag Waldrop CO2 [Moles/Vol] 25.4 mmol/L Normal 21.0-32.0 [facility] Comment on above: Performed By: #### P OCGLUC #### [facility] [address] [place] [address] Dr. Jag Waldrop Creatinine [Mass/Vol] 1.18 mg/dL Critically high 0.55-1.02 [facility] Comment on above: Performed By: #### P OCGLUC #### [facility] [address] [address] [address] Jag Waldrop EGFR-AF URUGUAYAN 59 mL/min/1.73m2 Critically low >=60 [facility] Comment on above: Performed By: #### P OCGLUC #### [facility] [address] [address] [address] Jag Waldrop EGFR-NON AF URUGUAYAN 48 mL/min/1.73m2 Critically low >=60 [facility] Comment on above: Performed By: #### P OCGLUC #### [facility] [address] [address] [address] Jag Waldrop Glucose [Mass/Vol] 141 mg/dL Critically high 74-106 [facility] Comment on above: Performed By: #### P OCGLUC #### [facility] [address] [address] [address] Jag Waldrop Potassium [Moles/Vol] 3.9 mmol/L Normal 3.5-5.1 [facility] Comment on above: Performed By: #### P OCGLUC #### [facility] [address] [address] [address] Jag Waldrop Sodium [Moles/Vol] 143 mmol/L Normal 136-145 [facility] Comment on above: Performed By: #### P OCGLUC #### [facility] [address] [address] [address] Jag Waldrop Urea nitrogen [Mass/Vol] 22.0 mg/dL Critically high 7.0-18.0 [facility] Comment on above: Performed By: #### P OCGLUC #### [facility] [address] [address] [address] Jag Waldrop Urea nitrogen/Creatinine [Mass ratio] 18.6 mg/mg Normal [facility] Comment on above: Performed By: #### P OCGLUC #### [facility] [address] [address] [address] Jag Waldrop XR KUB 1 VIEWon [...] ALEX ALLEN Date: 2021-10-29 09:01 Normal [facility] CULTURE URINEon 10-28-2021 CULTURE URINE Culture Observations : LIGHT GROWTH OF MIXED GENITAL SANDEE. NO POTENTIAL PATHOGENS SEEN. Normal [facility] Comment on above: Performed By: #### E RUR #### [facility] [address] [place] [address] Dr. Jag Waldrop GLYCOHEMOGLOBIN A1Con 2021 ADA RECOMMENDATION SEE BELOW Normal [facility] Comment on above: Result Comment: ADA RECOMMENDED LIMIT 4.0 - 6.0 ADA THERAPEUTIC TARGET < 7.0 ACTION SUGGESTED > 7.0 Performed By: #### E RUR #### [facility] [address] [place] [address] Dr. Jag Waldrop Glucose [Mass/Vol] 157 mg/dL Normal [facility] Comment on above: Performed By: #### E RUR #### [facility] [address] [place] [address] Dr. Jag Waldrop HbA1c (Bld) [Mass fraction] 7.1 % Critically high 4.5-6.2 [facility] Comment on above: Performed By: #### E RUR #### [facility] [address] [address] [address] Jag Waldrop LIPID PROFILEon 10-28-2021 CHOL-HDL RATIO NORM SEE BELOW Normal [facility] Comment on above: Result Comment: 3.3 - 4.4 LOW RISK 4.4 - 7.1 AVERAGE RISK 7.1 - 11.0 MODERATE RISK >11.0 HIGH RISK Performed By: #### P OCGLUC #### [facility] [address] [place] [address] Dr. Jag Waldrop Cholesterol [Mass/Vol] 150 mg/dL Normal <=200 [facility] [facility] Comment on above: Performed By: #### P OCGLUC #### [facility] [address] [address] [address] Jag Waldrop Cholesterol in HDL [Mass/Vol] 39 mg/dL Critically low 40-60 [facility] Comment on above: Performed By: #### P OCGLUC #### [facility] [address] [address] [address] Jag Waldrop Cholesterol in LDL [Mass/Vol] 82.6 mg/dL Normal [facility] Comment on above: Performed By: #### P OCGLUC #### [facility] [address] [address] [address] Jag Waldrop Cholesterol.total/Chol esterol in HDL [Mass ratio] 3.8 {ratio} Normal [facility] Comment on above: Performed By: #### P OCGLUC #### [facility] [address] [place] [address] Dr. Jag Waldrop HDL NORMAL > or = 60 mg/dl - LO W CARDIOVASCULAR RISK <40 mg/dl - HIGH CARDIOVASCULAR RISK Normal [facility] Comment on above: Performed By: #### P OCGLUC #### [facility] [address] [address] [address] Jag Waldrop LDL CALC NORMAL SEE BELOW Normal [facility] Comment on above: Result Comment: <100 mg/dl OPTIMAL 100 - 129 mg/dl NEAR OR ABOVE OPTIMAL 130 - 159 mg/dl BORDERLINE HIGH 160 - 189 mg/dl HIGH >190 mg/dl VERY HIGH Performed By: #### P OCGLUC #### [facility] [address] [place] [address] Dr. Jag Waldrop Triglyceride [Mass/Vol] 142 mg/dL Normal <=150 [facility] Comment on above: Performed By: #### P OCGLUC #### [facility] [address] [place] [address] Dr. Jag Waldrop VLDL CALC 28.4 mg/dL Normal [facility] Comment on above: Performed By: #### P OCGLUC #### [facility] [address] [address] [address] Jag Waldrop PROF CHEM 8 (BAS METB)on Anion gap [Moles/Vol] 16.0 mmol/L Normal Th [facility] Comment on above: Performed By: #### P OCGLUC #### [facility] [address] [address] [address] Jag Waldrop Calcium [Mass/Vol] 8.7 mg/dL Normal 8.5-10.1 [facility] Comment on above: Performed By: #### P OCGLUC #### [facility] [address] [address] [address] Jag Waldrop Chloride [Moles/Vol] 108 mmol/L Critically high 98-107 [facility] Comment on above: Performed By: #### P OCGLUC #### [facility] [address] [address] [address] Jag Waldrop CO2 [Moles/Vol] 22.1 mmol/L Normal 21.0-32.0 [facility] Comment on above: Performed By: #### P OCGLUC #### [facility] [address] [address] [address] Jag Waldrop Creatinine [Mass/Vol] 1.72 mg/dL Critically high 0.55-1.02 [facility] Comment on above: Performed By: #### P OCGLUC #### [facility] [address] [address] [address] Jag Waldrop EGFR-AF URUGUAYAN 38 mL/min/1.73m2 Critically low >=60 [facility] Comment on above: Performed By: #### P OCGLUC #### [facility] [address] [address] [address] Jag Waldrop EGFR-NON AF URUGUAYAN 31 mL/min/1.73m2 Critically low >=60 [facility] Comment on above: Performed By: #### P OCGLUC #### [facility] [address] [address] [address] Jag Waldrop Glucose [Mass/Vol] 144 mg/dL Critically high 74-106 [facility] Comment on above: Performed By: #### P OCGLUC #### [facility] [address] [address] [address] Jag Waldrop Potassium [Moles/Vol] 5.1 mmol/L Normal 3.5-5.1 [facility] Comment on above: Performed By: #### P OCGLUC #### [facility] [address] [place] [address] Dr. Jag Waldrop Sodium [Moles/Vol] 141 mmol/L Normal 136-145 [facility] Comment on above: Performed By: #### P OCGLUC #### [facility] [address] [place] [address] Dr. Jag Waldrop Urea nitrogen [Mass/Vol] 41.0 mg/dL Critically high 7.0-18.0 [facility] Comment on above: Performed By: #### P OCGLUC #### [facility] [address] [place] [address] Dr. Jag Waldrop Urea nitrogen/Creatinine [Mass ratio] 23.8 mg/mg Normal [facility] Comment on above: Performed By: #### P OCGLUC #### [facility] [address] [place] [address] Dr. Jag Waldrop UA (CLEAN/CATCH) PRODUCT COMMUNICATIONS MANAGER/MICRO I F IND.on 10-28-2021 Bilirubin Ql (U) Negative Normal NEGATIVE [facility] Comment on above: Performed By: #### L IPID, BMP #### [facility] [address] [place] [address] Dr. Jag Waldrop Clarity (U) SL CLOUDY Abnormal CLEAR [facility] Comment on above: Performed By: #### L IPID, BMP #### [facility] [address] [place] [address] Dr. Jag Waldrop Color (U) LT. YELLOW Normal YELLOW [facility] Comment on above: Performed By: #### L IPID, BMP #### [facility] [address] [place] [address] Dr. Jag Waldrop Glucose Ql (U) Negative Normal NEGATIVE [facility] Comment on above: Performed By: #### L IPID, BMP #### [facility] [address] [place] [address] Dr. Jag Waldrop Hemoglobin Ql (U) TRACE-INTACT Abnormal NEGATIVE [facility] Comment on above: Performed By: #### L IPID, BMP #### [facility] [address] [place] [address] Dr. Jag Waldrop Ketones Ql (U) Negative Normal NEGATIVE [facility] Comment on above: Performed By: #### L IPID, BMP #### [facility] [address] [place] [address] Dr. Jag Waldrop LEUKOCYTES SMALL Abnormal NEGATIVE [facility] Comment on above: Performed By: #### L IPID, BMP #### [facility] [address] [place] [address] Dr. Jag Waldrop Nitrite Ql (U) Negative Normal NEGATIVE [facility] Comment on above: Performed By: #### L IPID, BMP #### [facility] [address] [place] [address] Dr. Jag Waldrop pH (U) 5.5 [pH] Normal 5-9 [facility] Comment on above: Performed By: #### L IPID, BMP #### [facility] [address] [place] [address] Dr. Jag Waldrop SPEC GRAVITY 1.020 Normal 1.005-<=1.0 25 [facility] Comment on above: Performed By: #### L IPID, BMP #### [facility] [address] [place] [address] Dr. Jag Waldrop UA PROTEIN Negative Normal NEGATIVE/ TRACE [facility] Comment on above: Performed By: #### L IPID, BMP #### [facility] [address] [place] [address] Dr. Jag Waldrop UR MICRO IND INDICATED Normal [facility] Comment on above: Performed By: #### L IPID, BMP #### [facility] [address] [place] [address] Dr. Jag Waldrop Urobilinogen Qn (U) 0.2 {Chris'U}/dL Normal 0.2 - 1. 0 [facility] Comment on above: Performed By: #### L IPID, BMP #### [facility] [address] [place] [address] Dr. Jag Waldrop URINE MICROSCOPIC ONLYon BACTERIA TRACE Abnormal NONE SEEN [facility] Comment on above: Performed By: #### L IPID, BMP #### [facility] [address] [place] [address] Dr. Jag Waldrop Bacteria identified Cx Nom (U) INDICATED Normal [facility] Comment on above: Performed By: #### L IPID, BMP #### [facility] [address] [place] [address] Dr. Jag Waldrop CAST NONE SEEN Normal NONE SEEN [facility] Comment on above: Performed By: #### L IPID, BMP #### [facility] [address] [place] [address] Dr. Jag Waldrop Crystals LM Nom (Urine sed) NONE SEEN Normal NONE SEEN [facility] Comment on above: Performed By: #### L IPID, BMP #### [facility] [address] [place] [address] Dr. Jag Waldrop Epithelial cells LM Ql (Urine sed) RARE Normal NONE SEEN /RARE [facility] Comment on above: Performed By: #### L IPID, BMP #### [facility] [address] [place] [address] Dr. Jag Waldrop MUCOUS TRACE Abnormal NONE SEEN [facility] Comment on above: Performed By: #### L IPID, BMP #### [facility] [address] [place] [address] Dr. Jag Waldrop RBC 0-2 Normal 0-2 [facility] Comment on above: Performed By: #### L IPID, BMP #### [facility] [address] [place] [address] Dr. Jag Waldrop WBC 2-5 Abnormal NONE SEEN [facility] Comment on above: Performed By: #### L IPID, BMP #### [facility] [address] [place] [address] Dr. Jag Waldrop BNPon 10-02-2021 Natriuretic peptide B (Bld) [Mass/Vol] 52.0 pg/mL Normal <=900.0 [facility] Comment on above: Performed By: #### L IPID, BMP #### [facility] [address] [place] [address] Dr. Jag Waldrop CBC AUTO DIFFon 10-02-2021 BASO # 0.1 103/ul Normal 0.0-0.1 [facility] Comment on above: Performed By: #### P OCGLUC #### [facility] [address] [place] [address] Dr. Jag Waldrop Basophils/100 WBC (Bld) 0.8 % Normal 0.2-2.0 [facility] Comment on above: Performed By: #### P OCGLUC #### [facility] [address] [place] [address] Dr. Jag Waldrop EO # 0.2 103/ul Normal 0.0-0.7 [facility] Comment on above: Performed By: #### P OCGLUC #### [facility] [address] [place] [address] Dr. Jag Waldrop Eosinophils/100 WBC (Bld) 3.0 % Normal 0.9-7.0 [facility] Comment on above: Performed By: #### P OCGLUC #### [facility] [address] [place] [address] Dr. Jag Waldrop Erythrocyte distribution width (RBC) [Ratio] 14.2 % Normal 11.0-15.0 [facility] Comment on above: Performed By: #### P OCGLUC #### [facility] [address] [place] [address] Dr. Jag Waldrop Hematocrit (Bld) [Volume fraction] 35.9 % Critically low 36.0-48.0 [facility] Comment on above: Performed By: #### P OCGLUC #### [facility] [address] [place] [address] Dr. Jag Waldrop Hemoglobin (Bld) [Mass/Vol] 11.0 g/dL Critically low 12.0-16.0 [facility] Comment on above: Performed By: #### P OCGLUC #### [facility] [address] [place] [address] Dr. Jag Waldrop IG # 0.03 10e3/ul Normal 0.00-0.03 [facility] Comment on above: Performed By: #### P OCGLUC #### [facility] [address] [place] [address] Dr. Jag Waldrop IG % 0.4 % Normal 0.0-0.5 [facility] Comment on above: Performed By: #### P OCGLUC #### [facility] [address] [place] [address] Dr. Jag Waldrop LYMPH # 2.8 103/ul Normal 1.2-3.8 [facility] Comment on above: Performed By: #### P OCGLUC #### [facility] [address] [place] [address] Dr. Jag Waldrop Lymphocytes/100 WBC (Bld) 37.9 % Normal 20.5-60.0 [facility] Comment on above: Performed By: #### P OCGLUC #### [facility] [address] [place] [address] Dr. Jag Waldrop MANUAL DIFF REQ NO Normal [facility] Comment on above: Performed By: #### P OCGLUC #### [facility] [address] [place] [address] Dr. Jag Waldrop MCH (RBC) [Entitic mass] 28.7 pg Normal 26.7-34.0 [facility] Comment on above: Performed By: #### P OCGLUC #### [facility] [address] [place] [address] Dr. Jag Waldrop MCHC (RBC) [Mass/Vol] 30.6 g/dL Normal 29.9-35.2 [facility] Comment on above: Performed By: #### P OCGLUC #### [facility] [address] [place] [address] Dr. Jag Waldrop MCV (RBC) [Entitic vol] 93.7 fL Normal 81.0-99.0 [facility] Comment on above: Performed By: #### P OCGLUC #### [facility] [address] [place] [address] Dr. Jag Waldrop MONO # 0.5 103/ul Normal 0.3-0.8 [facility] Comment on above: Performed By: #### P OCGLUC #### [facility] [address] [place] [address] Dr. Jag Waldrop Monocytes/100 WBC (Bld) 7.4 % Normal 1.7-12.0 [facility] Comment on above: Performed By: #### P OCGLUC #### [facility] [address] [place] [address] Dr. Jag Waldrop NEUT # 3.7 103/ul Normal 1.4-6.5 [facility] Comment on above: Performed By: #### P OCGLUC #### [facility] [address] [place] [address] Dr. Jag Waldrop Neutrophils/100 WBC (Bld) 50.5 % Normal 43.0-75.0 [facility] Comment on above: Performed By: #### P OCGLUC #### [facility] [address] [place] [address] Dr. Jag Waldrop Platelet mean volume (Bld) [Entitic vol] 10.2 fL Normal 9.5-13.5 [facility] Comment on above: Performed By: #### P OCGLUC #### [facility] [address] [place] [address] Dr. Jag Waldrop PLT 261 103/ul Normal 150-450 [facility] Comment on above: Performed By: #### P OCGLUC #### [facility] [address] [place] [address] Dr. Jag Waldrop RBC 3.83 106/ul Critically low 4.20-5.40 [facility] Comment on above: Performed By: #### P OCGLUC #### [facility] [address] [place] [address] Dr. Jag Waldrop WBC 7.3 103/ul Normal 4.0-11.0 [facility] Comment on above: Performed By: #### P OCGLUC #### [facility] [address] [place] [address] Dr. Jag Waldrop POINT OF CARE GLUCOSEon 09-14 Glucose [Mass/Vol] 156 mg/dL Critically high 74-106 [facility] Comment on above: Performed By: #### P OCGLUC #### [facility] [address] [address] [address] Jag Waldrop Glucose [Mass/Vol] 304 mg/dL Critically high 74-106 [facility] Comment on above: Performed By: #### P OCGLUC #### [facility] [address] [address] [address] Jag Waldrop Glucose [Mass/Vol] 77 mg/dL Normal 74-106 [facility] Comment on above: Performed By: #### E RUR #### [facility] [address] [place] [address] Dr. Jag Waldrop Glucose [Mass/Vol] 136 mg/dL Critically high 74-106 [facility] Comment on above: Performed By: #### E RUR #### [facility] [address] [place] [address] Dr. Jag Waldrop Glucose [Mass/Vol] 73 mg/dL Critically low 74-106 [facility] Comment on above: Performed By: #### E RUR #### [facility] [address] [place] [address] Dr. Jag Waldrop PROF CHEM 8 (BAS METB)on Anion gap [Moles/Vol] 15.5 mmol/L Normal [facility] Comment on above: Performed By: #### P OCGLUC #### [facility] [address] [place] [address] Dr. Jag Waldrop Calcium [Mass/Vol] 8.3 mg/dL Critically low 8.5-10.1 [facility] Comment on above: Performed By: #### P OCGLUC #### [facility] [address] [place] [address] Dr. Jag Waldrop Chloride [Moles/Vol] 108 mmol/L Critically high 98-107 [facility] Comment on above: Performed By: #### P OCGLUC #### [facility] [address] [place] [address] Dr. Jag Waldrop CO2 [Moles/Vol] 18.9 mmol/L Critically low 21.0-32.0 [facility] Comment on above: Performed By: #### P OCGLUC #### [facility] [address] [address] [address] Jag Waldrop Creatinine [Mass/Vol] 1.43 mg/dL Critically high 0.55-1.02 [facility] Comment on above: Performed By: #### P OCGLUC #### [facility] [address] [address] [address] Jag Waldrop EGFR-AF URUGUAYAN 47 mL/min/1.73m2 Critically low >=60 [facility] Comment on above: Performed By: #### P OCGLUC #### [facility] [address] [address] [address] Jag Waldrop EGFR-NON AF URUGUAYAN 39 mL/min/1.73m2 Critically low >=60 [facility] Comment on above: Performed By: #### P OCGLUC #### [facility] [address] [address] [address] Jag Waldrop Glucose [Mass/Vol] 269 mg/dL Critically high 74-106 [facility] Comment on above: Performed By: #### P OCGLUC #### [facility] [address] [place] [address] Dr. Jag Waldrop Potassium [Moles/Vol] 5.4 mmol/L Critically high 3.5-5.1 [facility] Comment on above: Performed By: #### P OCGLUC #### [facility] [address] [address] [address] Jag Waldrop Sodium [Moles/Vol] 137 mmol/L Normal 136-145 [facility] Comment on above: Performed By: #### P OCGLUC #### [facility] [address] [address] [address] Jag Waldrop Urea nitrogen [Mass/Vol] 40.0 mg/dL Critically high 7.0-18.0 [facility] Comment on above: Performed By: #### P OCGLUC #### [facility] [address] [address] [address] Jag Waldrop Urea nitrogen/Creatinine [Mass ratio] 28.0 mg/mg Normal [facility] Comment on above: Performed By: #### P OCGLUC #### [facility] [address] [place] [address] Dr. Jag Waldrop Anion gap [Moles/Vol] 14.0 mmol/L Normal Th [facility] Comment on above: Performed By: #### E RUR #### [facility] [address] [place] [address] Dr. Jag Waldrop Calcium [Mass/Vol] 8.9 mg/dL Normal 8.5-10.1 [facility] Comment on above: Performed By: #### E RUR #### [facility] [address] [place] [address] Dr. Jag Waldrop Chloride [Moles/Vol] 110 mmol/L Critically high 98-107 [facility] Comment on above: Performed By: #### E RUR #### [facility] [address] [place] [address] Dr. Jag Waldrop CO2 [Moles/Vol] 21.1 mmol/L Normal 21.0-32.0 [facility] Comment on above: Performed By: #### E RUR #### [facility] [address] [place] [address] Dr. Jag Waldrop Creatinine [Mass/Vol] 1.32 mg/dL Critically high 0.55-1.02 [facility] Comment on above: Performed By: #### E RUR #### [facility] [address] [place] [address] Dr. Jag Waldrop EGFR-AF URUGUAYAN 52 mL/min/1.73m2 Critically low >=60 [facility] Comment on above: Performed By: #### E RUR #### [facility] [address] [place] [address] Dr. Jag Waldrop EGFR-NON AF URUGUAYAN 43 mL/min/1.73m2 Critically low >=60 [facility] Comment on above: Performed By: #### E RUR #### [facility] [address] [place] [address] Dr. Jag Waldrop Glucose [Mass/Vol] 79 mg/dL Normal 74-106 [facility] Comment on above: Performed By: #### E RUR #### [facility] [address] [place] [address] Dr. Jag Waldrop Potassium [Moles/Vol] 6.1 mmol/L Critically high 3.5-5.1 [facility] Comment on above: Result Comment: Test Repeated. Critical Value Verified Performed By: #### E RUR #### [facility] [address] [address] [address] Jag Waldrop Sodium [Moles/Vol] 140 mmol/L Normal 136-145 [facility] Comment on above: Performed By: #### E RUR #### [facility] [address] [place] [address] Dr. Jag Waldrop Urea nitrogen [Mass/Vol] 45.0 mg/dL Critically high 7.0-18.0 [facility] Comment on above: Performed By: #### E RUR #### [facility] [address] [place] [address] Dr. Jag Waldrop Urea nitrogen/Creatinine [Mass ratio] 34.1 mg/mg Normal [facility] Comment on above: Performed By: #### E RUR #### [facility] [address] [place] [address] Dr. Jag Waldrop BASIC METABOLIC PANELon 08-14 Calcium [Mass/Vol] 8.9 mg/dL Normal 8.6-10.3 [facility] Comment on above: Order Comment: No: D o not add to previous draw Performed By: #### 5 [id number], [id number] #### [facility] [address] [place] [address], [place] Chloride [Moles/Vol] 105 mmol/L Normal 98-107 [facility] Comment on above: Order Comment: No: D o not add to previous draw Performed By: #### 5 [id number], [id number] #### [facility] [address] [place] [address], [place] CO2 [Moles/Vol] 26 mmol/L Normal 21-31 [facility] Comment on above: Order Comment: No: D o not add to previous draw Performed By: #### 5 [id number], [id number] #### [facility] [address] [place] [address], [place] Creatinine [Mass/Vol] 0.99 mg/dL Normal 0.60-1.20 [facility] Comment on above: Order Comment: No: D o not add to previous draw Performed By: #### 5 610, [id number] #### [facility] [address] [place] [address], [place] GFR/1.73 sq M predicted among blacks MDRD (S/P/Bld) [Vol rate/Area] mL/min/{1.73_m2} Normal >60 [facility] Comment on above: Order Comment: No: D o not add to previous draw Performed By: #### 5 [id number], [id number] #### [facility] [address] [place] [address], [place] GFR/1.73 sq M predicted among non-blacks MDRD (S/P/Bld) [Vol rate/Area] mL/min/{1.73_m2} Normal >60 [facility] Comment on above: Order Comment: No: D o not add to previous draw Performed By: #### 5 [id number], [id number] #### [facility] [address] [place] [address], [place] Glucose [Mass/Vol] 145 mg/dL High 70-100 [facility] Comment on above: Order Comment: No: D o not add to previous draw Performed By: #### 5 [id number], [id number] #### [facility] [address] [place] [address], [place] Potassium [Moles/Vol] 3.7 mmol/L Normal 3.5-5.1 [facility] Comment on above: Order Comment: No: D o not add to previous draw Performed By: #### 5 610, [id number] #### [facility] [address] [place] [address], [facility] Sodium [Moles/Vol] 139 mmol/L Normal 136-145 [facility] Comment on above: Order Comment: No: D o not add to previous draw Performed By: #### 5 610, [id number] #### [facility] [address] [place] [address], [facility] Urea nitrogen [Mass/Vol] 26 mg/dL High 7-25 [facility] Comment on above: Order Comment: No: D o not add to previous draw Performed By: #### 5 610, [id number] #### [facility] [address] [place] [address], [place] [facility] CBC W/DIFFon 08-25-2018 ABS BASOPHILS 0.0 10*3/uL Normal 0.0-0.2 [facility] Comment on above: Order Comment: No: D o not add to previous draw Performed By: #### 5 610, [id number] #### [facility] [address] ABS IMM GRANS 0.0 10*3/uL Normal 0.0-0.2 [facility] Comment on above: Order Comment: No: D o not add to previous draw Performed By: #### 5 6100, 18118 #### [facility] [address] [place] [place] [address], [facility] ABS NEUTROPHILS 2.3 10*3/uL Normal 1.6-7.6 [facility] Comment on above: Order Comment: No: D o not add to previous draw Performed By: #### 5 610, 79025 #### [facility] [address] [place] [place] [address], [facility] Basophils/100 WBC (Bld) 0.3 % Normal 0.0-1.0 [facility] Comment on above: Order Comment: No: D o not add to previous draw Performed By: #### 5 610, 83066 #### [facility] [address] [place] [address], [facility] Eosinophils (Bld) [#/Vol] 0.0 10*3/uL Normal 0.0-0.5 [facility] Comment on above: Order Comment: No: D o not add to previous draw Performed By: #### 5 610, 93155 #### [facility] [address] [place] [id number], [facility] Eosinophils/100 WBC (Bld) 0.0 % Normal 0.0-6.0 [facility] Comment on above: Order Comment: No: D o not add to previous draw Performed By: #### 5 6100, 40802 #### [facility] [address] [place] [address], [facility] Erythrocyte distribution width (RBC) [Ratio] 13.3 % Normal 11.5-15.0 [facility] Comment on above: Order Comment: No: D o not add to previous draw Performed By: #### 5 6100, 25429 #### [facility] [address] [place] [id number], [facility] Hematocrit (Bld) [Volume fraction] 37.7 % Normal 36.0-45.0 [facility] Comment on above: Order Comment: No: D o not add to previous draw Performed By: #### 5 6100, 51499 #### [facility] [address] [place] [id number], [facility] Hemoglobin (Bld) [Mass/Vol] 12.1 g/dL Normal 12.0-15.0 [facility] Comment on above: Order Comment: No: D o not add to previous draw Performed By: #### 5 610, 02343 #### [facility] [address] [place] [address], [facility] IMMATURE GRANS 0.2 % Normal 0.0-1.0 [facility] Comment on above: Order Comment: No: D o not add to previous draw Performed By: #### 5 610, 70309 #### [facility] [address] [place] [address], [facility] Lymphocytes (Bld) [#/Vol] 3.0 10*3/uL Normal 1.2-4.0 [facility] Comment on above: Order Comment: No: D o not add to previous draw Performed By: #### 5 6100, 96027 #### [facility] [address] [place] [address], [facility] Lymphocytes/100 WBC (Bld) 52.0 % High 20.0-45.0 [facility] Comment on above: Order Comment: No: D o not add to previous draw Performed By: #### 5 6100, 61269 #### [facility] [address] [place] [address], [facility] MCH (RBC) [Entitic mass] 28.7 pg Normal 27.0-33.0 [facility] Comment on above: Order Comment: No: D o not add to previous draw Performed By: #### 5 6100, 60828 #### [facility] [address] [facility] [place] [address], [facility] MCHC (RBC) [Mass/Vol] 32.1 g/dL Normal 32.0-35.0 [facility] Comment on above: Order Comment: No: D o not add to previous draw Performed By: #### 5 6100, 56681 #### [facility] [address] [place] [address], [facility] MCV (RBC) [Entitic vol] 89.3 fL Normal 82.0-98.0 [facility] Comment on above: Order Comment: No: D o not add to previous draw Performed By: #### 5 610, 25002 #### [facility] [address] [place] [address], [facility] Monocytes (Bld) [#/Vol] 0.5 10*3/uL Normal 0.1-1.0 [facility] Comment on above: Order Comment: No: D o not add to previous draw Performed By: #### 5 610, 75349 #### [facility] [address] [place] [address], [facility] MONOS 7.9 % Normal 5.0-12.0 [facility] Comment on above: Order Comment: No: D o not add to previous draw Performed By: #### 5 6100, 76319 #### [facility] [address] [place] [address], [facility] Neutrophils/100 WBC (Bld) 39.6 % Low 40.0-72.0 [facility] Comment on above: Order Comment: No: D o not add to previous draw Performed By: #### 5 610, 41139 #### [facility] [address] [place] [address], [facility] Nucleated RBC/100 WBC (Bld) [Ratio] 0 % Normal 0-0 [facility] Comment on above: Order Comment: No: D o not add to previous draw Performed By: #### 5 6100, 35698 #### [facility] [address] [facility] [place] [id number], [facility] PLAT CNT 236 10*3/uL Normal 150-400 [facility] Comment on above: Order Comment: No: D o not add to previous draw Performed By: #### 5 610, 37696 #### [facility] [address] [facility] [place] [address], [facility] RBC (Bld) [#/Vol] 4.22 10*6/uL Normal 3.80-5.00 [facility] Comment on above: Order Comment: No: D o not add to previous draw Performed By: #### 5 610, 46961 #### [facility] [address] [place] [address], [place] WBC (Bld) [#/Vol] 5.85 10*3/uL Normal 4.00-10.60 [facility] Comment on above: Order Comment: No: D o not add to previous draw Performed By: #### 5 6101, 51484 #### [facility] [address] [place] [address], [facility] POC GLUCOSE LABon 08-25-2018 Glucose [Mass/Vol] 180 mg/dL High 70-100 [facility] Comment on above: Performed By: #### 5 6101, 16603 #### [facility] [address] [place] [address], [facility] Glucose [Mass/Vol] 129 mg/dL High 70-100 [facility] Comment on above: Performed By: #### 5 6101, 60395 #### [facility] [address] [facility] [place] [address], [facility] Glucose [Mass/Vol] 132 mg/dL High 70-100 [facility] Comment on above: Performed By: #### 5 0608 #### [facility] [address] [facility]. [address] UFH HEPARIN ASSAYon 08-26-19 19 UNFRACTIONATED HEPARIN <0.10 Critically low 0.30-0.70 [facility] Comment on above: Result Comment: Betty roxaban and Apixaban will interfere with the anti Xa assay used to monitor UFH and LMWH. RESULTS CHECKED AND CALLED. ACCURATELY READ BACK BY JANENE ZAMARRIPA RN AT 0554 Performed By: #### 5 6101, 54670 #### [facility] [address] [place] [address], [facility] BASIC METABOLIC PANELon 08-14 Calcium [Mass/Vol] 8.5 mg/dL Low 8.6-10.3 [facility] Comment on above: Order Comment: No: D o not add to previous draw Performed By: #### 5 0608 #### [facility] [address] [place] [address], [facility] Chloride [Moles/Vol] 104 mmol/L Normal 98-107 [facility] Comment on above: Order Comment: No: D o not add to previous draw Performed By: #### 5 0608 #### [facility] [address] [place] [address], [place] CO2 [Moles/Vol] 27 mmol/L Normal 21-31 [facility] Comment on above: Order Comment: No: D o not add to previous draw Performed By: #### 5 0608 #### [facility] [address] [place] [address], [place] Creatinine [Mass/Vol] 1.13 mg/dL Normal 0.60-1.20 [facility] Comment on above: Order Comment: No: D o not add to previous draw Performed By: #### 5 0608 #### [facility] [address] [place] [address], [place] GFR/1.73 sq M predicted among blacks MDRD (S/P/Bld) [Vol rate/Area] mL/min/{1.73_m2} Normal >60 [facility] Comment on above: Order Comment: No: D o not add to previous draw Performed By: #### 5 0608 #### [facility] [address] [place] [address], [place] GFR/1.73 sq M predicted among non-blacks MDRD (S/P/Bld) [Vol rate/Area] 52 ml/min/1.73sq m Abnormal >60 [facility] Comment on above: Order Comment: No: D o not add to previous draw Performed By: #### 5 0608 #### [facility] [address] [place] [address], [place] Glucose [Mass/Vol] 131 mg/dL High 70-100 [facility] Comment on above: Order Comment: No: D o not add to previous draw Performed By: #### 5 0608 #### [facility] [address] [place] [address], [place] Potassium [Moles/Vol] 3.9 mmol/L Normal 3.5-5.1 [facility] Comment on above: Order Comment: No: D o not add to previous draw Performed By: #### 5 0608 #### [facility] [address] [place] [address], [facility] Sodium [Moles/Vol] 141 mmol/L Normal 136-145 [facility] Comment on above: Order Comment: No: D o not add to previous draw Performed By: #### 5 0608 #### [facility] [address] [place] [address], [facility] Urea nitrogen [Mass/Vol] 28 mg/dL High 7-25 [facility] Comment on above: Order Comment: No: D o not add to previous draw Performed By: #### 5 0608 #### [facility] [address] CBC COMPLETE BLOOD COUNT08-24-2018 Erythrocyte distribution width (RBC) [Ratio] 13.5 % Normal 11.5-15.0 [facility] Comment on above: Order Comment: No: D o not add to previous draw Performed By: #### 5 0608 #### [facility] [address] [facility] [place] [address], [facility] Hematocrit (Bld) [Volume fraction] 37.1 % Normal 36.0-45.0 [facility] Comment on above: Order Comment: No: D o not add to previous draw Performed By: #### 5 0608 #### [facility] [address] [place] [address], [facility] Hemoglobin (Bld) [Mass/Vol] 12.2 g/dL Normal 12.0-15.0 [facility] Comment on above: Order Comment: No: D o not add to previous draw Performed By: #### 5 0608 #### [facility] [address] [place] [address], [facility] MCH (RBC) [Entitic mass] 28.8 pg Normal 27.0-33.0 [facility] Comment on above: Order Comment: No: D o not add to previous draw Performed By: #### 5 0608 #### [facility] [address] [place] [address], [facility] MCHC (RBC) [Mass/Vol] 32.9 g/dL Normal 32.0-35.0 [facility] Comment on above: Order Comment: No: D o not add to previous draw Performed By: #### 5 0608 #### [facility] [address] [place] [address], [facility] MCV (RBC) [Entitic vol] 87.7 fL Normal 82.0-98.0 [facility] Comment on above: Order Comment: No: D o not add to previous draw Performed By: #### 5 0608 #### [facility] [address] [facility]. [address] Nucleated RBC/100 WBC (Bld) [Ratio] 0 % Normal 0-0 [facility] Comment on above: Order Comment: No: D o not add to previous draw Performed By: #### 5 0608 #### [facility] [address] [place] [address], [facility] PLAT CNT 251 10*3/uL Normal 150-400 [facility] Comment on above: Order Comment: No: D o not add to previous draw Performed By: #### 5 0608 #### [facility] [address] [place] [address], [facility] RBC (Bld) [#/Vol] 4.23 10*6/uL Normal 3.80-5.00 [facility] Comment on above: Order Comment: No: D o not add to previous draw Performed By: #### 5 0608 #### [facility] [address] [place] [address], [facility] WBC (Bld) [#/Vol] 8.42 10*3/uL Normal 4.00-10.60 [facility] Comment on above: Order Comment: No: D o not add to previous draw Performed By: #### 5 0608 #### [facility] [address] [place] [address], [facility] Cardiovascular Lab Reporton 08-24-2018 Cardiovascular Lab Report [facility] Patient Name: Sahra Sherly [facility] Amanda MR #: [id number] Department of Physician: Marshall Torres M.D. Division of Service Date: 08/23/2018 Cardiology Birthdate: 1970 Adult Cardiovascular Room #: 3AB [id number] Services [facility] [address] [place], [place] [address] Cardiovascular Laboratory Report FINAL IMPRESSION: 1. Mild [...] 5. Follow up with me in the [facility] post discharge. 6. Further recommendations deferred [...] the left radial artery was obtained. A 6-Bahamian Glidesheath was inserted without difficulty. Bilateral selective [...] 30% stenosis adjacent to a prominent septal engineer. There are luminal irregularities throughout the remainder [...] Loreto/Tk Godoy M.D. Date Trans: 08/24/2018 06:37 Amanda/yadira [id number] cc: Geovanni Brunner D.O. [address] [facility] [address] Normal [facility] HIP RIGHT 1 OR 2 VWS WITH PE LVISon 08-24-2018 HIP RIGHT 1 OR 2 VWS WITH PELVIS [facility] Department of Radiology [address] [place] [address] Patient Name: SHERLY HUMPHREYS : 1970 Sex: F Age: Race: White Pt. Location: [address] [place] [address] Patient Status: D Ordered Date: 08/24/2018 12:30:00 [...] findings. Electronically signed by:Kristy Jones. Transcribed by: [email or web address], User Resident: DL [email or web address] Electronically Signed by: KRISTY JONES @ 08/25/2018 08:05 PM I personally read this/these film(s) with this resident Normal [facility] Comment on above: Order Comment: No: D o not add to previous draw POC GLUCOSE LABon 08-24-2018 Glucose [Mass/Vol] 125 mg/dL High 70-100 [facility] Comment on above: Performed By: #### 5 0608 #### [facility] [address] [facility] Glucose [Mass/Vol] 150 mg/dL High 70-100 [facility] Comment on above: Performed By: #### 5 0608 #### [facility] [address] [facility] Glucose [Mass/Vol] 119 mg/dL High 70-100 [facility] Comment on above: Performed By: #### 5 0608 #### [facility] [address] [facility] UFH HEPARIN ASSAYon 08-25-19 19 UNFRACTIONATED HEPARIN <0.10 Critically low 0.30-0.70 [facility] Comment on above: Result Comment: [place] roxaban and Apixaban will interfere with the anti Xa assay used to monitor UFH and LMWH. RESULTS CHECKED AND CALLED. ACCURATELY READ BACK BY JANENE ZAMARRIPA RN AT 0732 Performed By: #### 5 0608 #### [facility] [address] [facility] APTTon 08-23-2018 aPTT Coag (Bld) [Time] 38.8 s High 25.0-35.0 Th e [facility] Comment on above: Order Comment: No: [...] THIS PURPOSE. Performed By: #### 5 6101, 68573 #### [facility] [address] [facility]. [address] CBC COMPLETE BLOOD COUNTon 0 08-23-2018 Erythrocyte distribution width (RBC) [Ratio] 13.3 % Normal 11.5-15.0 [facility] Comment on above: Order Comment: No: D o not add to previous draw Performed By: #### 5 0608 #### [facility] [address] [place] [id number], [facility] Hematocrit (Bld) [Volume fraction] 41.4 % Normal 36.0-45.0 [facility] Comment on above: Order Comment: No: D o not add to previous draw Performed By: #### 5 0608 #### [facility] [address] [place] [address], [facility] Hemoglobin (Bld) [Mass/Vol] 13.8 g/dL Normal 12.0-15.0 [facility] Comment on above: Order Comment: No: D o not add to previous draw Performed By: #### 5 0608 #### [facility] [address] [place] [address], [facility] MCH (RBC) [Entitic mass] 29.0 pg Normal 27.0-33.0 [facility] Comment on above: Order Comment: No: D o not add to previous draw Performed By: #### 5 0608 #### [facility] [address] [place] [address], [facility] MCHC (RBC) [Mass/Vol] 33.3 g/dL Normal 32.0-35.0 [facility] Comment on above: Order Comment: No: D o not add to previous draw Performed By: #### 5 0608 #### [facility] [address] [place] [address], [place] MCV (RBC) [Entitic vol] 87.0 fL Normal 82.0-98.0 [facility] Comment on above: Order Comment: No: D o not add to previous draw Performed By: #### 5 0608 #### [facility] [address] [place] [id number] [place] [address] Nucleated RBC/100 WBC (Bld) [Ratio] 0 % Normal 0-0 [facility] Comment on above: Order Comment: No: D o not add to previous draw Performed By: #### 5 0608 #### [facility] [address] [place] [address], [place] PLAT CNT 293 10*3/uL Normal 150-400 [facility] Comment on above: Order Comment: No: D o not add to previous draw Performed By: #### 5 0608 #### [facility] [address] [place] [address], [facility] RBC (Bld) [#/Vol] 4.76 10*6/uL Normal 3.80-5.00 [facility] Comment on above: Order Comment: No: D o not add to previous draw Performed By: #### 5 0608 #### [facility] [address] [place] [address], [facility] WBC (Bld) [#/Vol] 10.48 10*3/uL Normal 4.00-10.60 [facility] Comment on above: Order Comment: No: D o not add to previous draw Performed By: #### 5 0608 #### [facility] [address] [facility] [place] [address], [facility] History and Physicalon 08-23 History and Physical MR#: [id number] [facility] Pt. Name: Sherly Humphreys Admitted: 08/23/2018 Date of : 1970 Attending Physician: Nini Valente MD Room #: [id number] Discharge Date: HISTORY AND PHYSICAL CHIEF COMPLAINT: [...] she went to the emergency department in [facility]. Initial evaluation included troponin and EKG, which were negative. The patient was started on nitroglycerin patch. She experienced some relief after starting the nitroglycerin patch. Her pain went down from 8 to 6/10. Given her significant cardiac history, the patient was transferred to [facility] for further evaluation. The patient reports that [...] with no ST-T wave changes. Troponin from [facility] was 0.01. Pending troponin in our [...] Valente MD Date Trans: 08/23/2018 06:27 A/yadira [id number] Normal [facility] POC GLUCOSE LABon 08-23-2018 Glucose [Mass/Vol] 101 mg/dL High 70-100 [facility] Comment on above: Performed By: #### 5 0608 #### [facility] [address] [facility] [place] [address], [facility] Glucose [Mass/Vol] 96 mg/dL Normal 70-100 [facility] Comment on above: Performed By: #### 5 0608 #### [facility] [address] [place] [address], [place] Glucose [Mass/Vol] 134 mg/dL High 70-100 [facility] Comment on above: Performed By: #### 8 5499 #### [facility] [address] [place] [address], [facility] Glucose [Mass/Vol] 164 mg/dL High 70-100 [facility] Comment on above: Performed By: #### 8 5499 #### [facility] [address] [facility]. [address] PROTHROMBIN TIMEon 9 INR Coag (PPP) [Relative time] 1.06 {INR} Normal 0.91-1.16 [facility] Comment on above: Order Comment: No: [...] CHEST 1995;[id number]. Performed By: #### 5 6101, 98732 #### [facility] [address] [facility]. [address] PT Coag (PPP) [Time] 13.8 s Normal 12.3-14.8 [facility] Comment on above: Order Comment: No: D o not add to previous draw Result Comment: ALL RESULTS MUST BE INTERPRETED WITH RESPECT TO BLOOD DRAWING ARTIFACT OR DILUTION ERROR OF ANTICOAGULANT AT THE TIME OF SAMPLING. Performed By: #### 5 6101, 55373 #### [facility] [address] SERUM TESTon 08-23 TEST Negative Normal [facility] Comment on above: Order Comment: Yes: Add to Previous draw if able Performed By: #### 4 6473 #### [address] TROPONIN-Ion 08-23-2018 Troponin I.cardiac [Mass/Vol] 0.01 ng/mL Normal 0.00-0.04 [facility] Comment on above: Order Comment: No: D o not add to previous draw Result Comment: REFE RENCE RANGES: 0.00 - 0.04 ng/ml NORMAL 0.05 - 0.50 ng/ml INDETERMINATE > 0.50 ng/ml CONSISTENT WITH AN M.I. Performed By: #### 3 5200 #### [address] UFH HEPARIN ASSAYon 08-24-19 19 UNFRACTIONATED HEPARIN 0.42 IU/mL Normal 0.30-0.70 [facility] Comment on above: Order Comment: per beatriz schneider Result Comment: [place] roxaban and Apixaban will interfere with the anti Xa assay used to monitor UFH and LMWH. Performed By: #### 3 0477 #### [address] UNFRACTIONATED HEPARIN 0.29 IU/mL Low 0.30-0.70 [facility] Comment on above: Result Comment: Betty roxaban and Apixaban will interfere with the anti Xa assay used to monitor UFH and LMWH. Performed By: #### 3 0477 #### [place] [address], [facility] US GALLBLADDERon 08-23-2018 US GALLBLADDER [facility] Department of Radiology [address] [place] [id number] Patient Name: SHERLY HUMPHREYS : 1970 Sex: F Age: Race: White Pt. Location: [id number] Patient Status: I Ordered Date: 08/23/2018 11:30:00 [...] gallbladder. Electronically signed by:Nathan Mauricio. Transcribed by: [email or web address], User Resident: Electronically Signed by: NATHAN MAURICIO @ 08/23/2018 03:33 PM Normal [facility] Comment on above: Order Comment: No: D o not add to previous draw Vital Signs Date Time Vital Sign Value Performing Clinician Facility 11-01-2023 11:00-0400 Diastolic blood pressure 83 mm[Hg] Janene Aichholz Work Phone: [facility] 11-01-2023 11:00-0400 Heart rate 52 /min Janene Aichholz Work Phone: [facility] 11-01-2023 11:00-0400 Respiratory rate 16 /min Janene Aichholz Work Phone: [facility] 11-01-2023 11:00-0400 SaO2% (BldA) [Mass fraction] 98 % Janene Aichholz Work Phone: [facility] 11-01-2023 11:00-0400 Systolic blood pressure 144 mm[Hg] Janene Aichholz Work Phone: [facility] 11-01-2023 10:30-0400 Inhaled oxygen flow rate 8 L/min Janene Aichholz Work Phone: [facility] 11-01-2023 07:28-0400 Body height 162.56 cm Janene Aichholz Work Phone: [facility] 11-01-2023 07:28-0400 Body temperature 97.9 [degF] Janene Aichholz Work Phone: [facility] 11-01-2023 07:28-0400 Body weight 129.72 kg Janene Aichholz Work Phone: [facility] 10-16-2023 13:05-0400 Body height 162.56 cm Janene Aichholz Work Phone: [facility] 10-16-2023 13:05-0400 Body mass index (BMI) [Ratio] 51.5 kg/m2 Janene Aichholz Work Phone: [facility] [facility] 10-16-2023 13:05-0400 Body temperature 97.3 [degF] Janene Aichholz Work Phone: [facility] 10-16-2023 13:05-0400 Body weight 136.3 kg Janene Aichholz Work Phone: [facility] 10-16-2023 13:05-0400 Diastolic blood pressure 76 mm[Hg] Janene Aichholz Work Phone: [facility] 10-16-2023 13:05-0400 Heart rate 69 /min Janene Aichholz Work Phone: [facility] 10-16-2023 13:05-0400 Respiratory rate 18 /min Janene Aichholz Work Phone: [facility] 10-16-2023 13:05-0400 SaO2% (BldA) [Mass fraction] 99 % Janene Aichholz Work Phone: [facility] 10-16-2023 13:05-0400 Systolic blood pressure 125 mm[Hg] Janene Aichholz Work Phone: [facility] 10-02-2023 08:00-0400 Body temperature 97.9 [degF] Janene Aichholz Work Phone: [facility] 10-02-2023 08:00-0400 Diastolic blood pressure 82 mm[Hg] Janene Aichholz Work Phone: [facility] 10-02-2023 08:00-0400 Heart rate 58 /min Janene Aichholz Work Phone: [facility] 10-02-2023 08:00-0400 Respiratory rate 16 /min Janene Aichholz Work Phone: [facility] 10-02-2023 08:00-0400 SaO2% (BldA) [Mass fraction] 100 % Janene Aichholz Work Phone: [facility] 10-02-2023 08:00-0400 Systolic blood pressure 138 mm[Hg] Janene Aichholz Work Phone: [facility] 10-02-2023 05:02-0400 Body weight 139.8 kg Janene Aichholz Work Phone: [facility] 10-01-2023 05:34-0400 Body height 162.56 cm Janene Aichholz Work Phone: [facility] 08-15-2023 10:02-0400 Body height 162.56 cm Janene Aichholz Work Phone: [facility] 08-15-2023 10:02-0400 Body mass index (BMI) [Ratio] 54.6 kg/m2 Janene Aichholz Work Phone: [facility] 08-15-2023 10:02-0400 Body temperature 96.9 [degF] Janene Aichholz Work Phone: [facility] 08-15-2023 10:02-0400 Body weight 144.24 kg Janene Aichholz Work Phone: [facility] 08-15-2023 10:02-0400 Diastolic blood pressure 77 mm[Hg] Janene Aichholz Work Phone: [facility] 08-15-2023 10:02-0400 Heart rate 59 /min Janene Aichholz Work Phone: [facility] 08-15-2023 10:02-0400 Respiratory rate 18 /min Janene Aichholz Work Phone: [facility] 08-15-2023 10:02-0400 SaO2% (BldA) [Mass fraction] 98 % Janene Aichholz Work Phone: [facility] 08-15-2023 10:02-0400 Systolic blood pressure 130 mm[Hg] Janene Aichholz Work Phone: [facility] 08-14-2022 10:15-0400 Body height 162.56 cm Ivan Sams Other [facility] Other 08-14-2022 10:15-0400 Body mass index (BMI) [Ratio] 51.63 kg/m2 Ivan Sams Other [facility] Other 08-14-2022 10:15-0400 Body weight 136.44 kg Ivan Sams Other [facility] Other 08-14-2022 10:15-0400 Diastolic blood pressure 80 mm[Hg] Ivan Sams Other [facility] Other 08-14-2022 10:15-0400 SaO2% (BldA) [Mass fraction] 99 % Ivan Sams Other [facility] Other 08-14-2022 10:15-0400 Systolic blood pressure 140 mm[Hg] Ivan Sams Other [facility] Other 07-03-2022 12:30-0400 Body height 162.56 cm Ivan Sams Other [facility] Other 07-03-2022 12:30-0400 Body mass index (BMI) [Ratio] 51.39 kg/m2 Ivan Sams Other [facility] Other 07-03-2022 12:30-0400 Body weight 135.81 kg Ivan Sams Other [facility] Other 07-03-2022 12:30-0400 Diastolic blood pressure 84 mm[Hg] Ivan Sams Other [facility] Other 07-03-2022 12:30-0400 SaO2% (BldA) [Mass fraction] 99 % Ivan Sams Other [facility] Other 07-03-2022 12:30-0400 Systolic blood pressure 142 mm[Hg] Ivan Sams Other [facility] Other 06-24-2022 15:59-0500 Body height 162.56 cm Janene Aichholz Work Phone: [facility] 06-24-2022 15:59-0500 Body temperature 98.2 [degF] Janene Aichholz Work Phone: [facility] 06-24-2022 15:59-0500 Body weight 134.4 kg Janene Aichholz Work Phone: [facility] 06-24-2022 15:59-0500 Diastolic blood pressure 95 mm[Hg] Janene Aichholz Work Phone: [facility] 06-24-2022 15:59-0500 Heart rate 94 /min Janene Aichholz Work Phone: [facility] 06-24-2022 15:59-0500 Respiratory rate 20 /min Janene Aichholz Work Phone: [facility] 06-24-2022 15:59-0500 SaO2% (BldA) [Mass fraction] 96 % Janene Aichholz Work Phone: [facility] 06-24-2022 15:59-0500 Systolic blood pressure 187 mm[Hg] Janene Aichholz Work Phone: [facility] 05-12-2022 12:00-0500 Body height 162.56 cm Christian Mckenzie Other [facility] [employer] Other 05-12-2022 12:00-0500 Body mass index (BMI) [Ratio] 51.94 kg/m2 Christian Mckenzie Other [facility] Other 05-12-2022 12:00-0500 Body weight 137.26 kg Christian Mckenzie Other [facility] Other 04-25-2022 12:20-0500 Body height 162.56 cm Aziz Bakmichaels Other [facility] Other 04-25-2022 12:20-0500 Body mass index (BMI) [Ratio] 51.94 kg/m2 Aziz Bakhous Other [facility] Other 04-25-2022 12:20-0500 Body temperature 97.5 [degF] Aziz Bakhous Other [facility] Other 04-25-2022 12:20-0500 Body weight 137.26 kg Aziz Bakhous Other [facility] Other 04-25-2022 12:20-0500 Diastolic blood pressure 80 mm[Hg] Aziz Bakhous Other [facility] Other 04-25-2022 12:20-0500 Respiratory rate 18 /min Aziz Bakhous Other [facility] Other 04-25-2022 12:20-0500 SaO2% (BldA) [Mass fraction] 97 % Aziz Bakhous Other [facility] Other 04-25-2022 12:20-0500 Systolic blood pressure 140 mm[Hg] Aziz Bakhous Other [facility] Other 01-25-2022 16:15-0400 Body height 162.56 cm Emma Bolivar Other [facility] Other 01-25-2022 16:15-0400 Body mass index (BMI) [Ratio] 52.78 kg/m2 Emma Bolivar Other [facility] Other 01-25-2022 16:15-0400 Body temperature 97.1 [degF] Emma Bolivar Other [facility] Other 01-25-2022 16:15-0400 Body weight 139.48 kg Emma Bolivar Other [facility] Other 01-25-2022 16:15-0400 Diastolic blood pressure 70 mm[Hg] Emma Bolivar Other [facility] Other 01-25-2022 16:15-0400 SaO2% (BldA) [Mass fraction] 98 % Emma Bolivar Other [facility] Other 01-25-2022 16:15-0400 Systolic blood pressure 142 mm[Hg] Emma Bolivar Other [facility] Other 12-06-2021 12:20-0400 Body height 162.56 cm Christian Mckenzie Other [facility] Other 12-06-2021 12:20-0400 Body mass index (BMI) [Ratio] 46.34 kg/m2 Christian Mckenzie Other [facility] Other 12-06-2021 12:20-0400 Body weight 122.47 kg Christian Mckenzie Other [facility] Other 11-10-2021 16:20-0400 Body height 162.56 cm Christian Mckenzie Other [facility] Other 11-10-2021 16:20-0400 Body mass index (BMI) [Ratio] 46.34 kg/m2 Christian Mckenzie Other [facility] Other 11-10-2021 16:20-0400 Body weight 122.47 kg Christian Mckenzie Other [facility] Other 09-29-2021 14:00-0400 Body height 162.56 cm Christian Mckenzie Other [facility] Other 09-29-2021 14:00-0400 Body mass index (BMI) [Ratio] 46 kg/m2 Christian Mckenzie Other [facility] Other 09-29-2021 14:00-0400 Body weight 121.56 kg Christian Mckenzie Other [facility] Other 08-30-2021 15:40-0400 Body height 162.56 cm Christian Mckenzie Other [facility] Other 08-30-2021 15:40-0400 Body mass index (BMI) [Ratio] 46 kg/m2 Christian Mckenzie Other [facility] Other 08-30-2021 15:40-0400 Body weight 121.56 kg Christian Mckenzie Other [facility] Other Encounters Encounter Date Encounter Type Care Provider Facility Start: 12-27-2023 ambulatory Valdemar Ruff acility:[facility] Start: 12-18-2023 End: 12-18-2023 ambulatory [facility] Start: 12-05-2023 End: 12-05-2023 ambulatory JANENE REDDHHOLZ Not Available Start: 12-03-2023 End: 12-03-2023 ambulatory Elza Conway MD Facility:[facility] Start: 11-19-2023 End: 11-19-2023 ambulatory LYNDSAY STALEYSAYDARIN Not Available Start: 11-12-2023 End: 11-13-2023 ambulatory BAN CLEMENTE V Not Available Start: 11-01-2023 End: 11-01-2023 Admission to same day surgery center Janene Aichholz Work Phone: [facility] [place] Start: 11-01-2023 End: 11-01-2023 ambulatory Janene J Aichholz Work Phone: [facility] Work Phone: Start: 10-29-2023 Registered Recurring Janene Aich jeremiah Work Phone: [facility] Start: 10-24-2023 End: 10-24-2023 ambulatory JANENE AICHHOLZ Not Available Start: 10-16-2023 End: 10-16-2023 ambulatory Janene J Aichholz Work Phone: [facility] Work Phone: Start: 10-16-2023 End: 10-16-2023 Patient encounter procedure Janene Aichholz Work Phone: [facility] Work Phone: Start: 10-16-2023 Registered Recurring Janene Aich jeremiah Work Phone: [facility] Start: 10-11-2023 End: 10-11-2023 Patient encounter procedure Janene Aichholz Work Phone: [facility] [place] Work Phone: Start: 10-11-2023 End: 10-11-2023 ambulatory Janene J Aichholz Work Phone: [facility] Work Phone: Start: 10-01-2023 Non-patient / Non-visit Janene georgejeremiah Work Phone: [facility] Work Phone: Start: 10-01-2023 End: 10-02-2023 Evaluation and management of inpatient Janene Jonesjeremiah Work Phone: [facility] [place] [facility] Work Phone: Start: 09-24-2023 End: 09-24-2023 ambulatory Elza Conway MD Facility:[facility] Start: 09-20-2023 End: 09-20-2023 ambulatory SHAIKH TYLER Not Available Start: 09-14-2023 End: 09-14-2023 ambulatory BAN CLEMENTE V Not Available Start: 09-13-2023 End: 09-13-2023 ambulatory JANENE JONESJEREMIAH Not Available Start: 09-11-2023 End: 09-11-2023 ambulatory [facility] Start: 09-03-2023 Registered Recurring Janene Jones jeremiah Work Phone: [facility] Start: 08-15-2023 End: 08-15-2023 Patient encounter procedure Janene Jonesjeremiah Work Phone: [facility] Work Phone: Start: 08-10-2023 End: 08-10-2023 Patient encounter procedure Janene Jonesjeremiah Work Phone: [facility] [place] Work Phone: Start: 08-10-2023 End: 08-10-2023 ambulatory Janene Lopes Rdedtimmyjeremiah Work Phone: [facility] Work Phone: Start: 07-09-2023 End: 07-09-2023 ambulatory Elza Conway MD Facility:[facility] Start: 07-03-2023 End: 07-03-2023 ambulatory JESSICA GASPAR Not Available Start: 07-02-2023 End: 07-02-2023 ambulatory JANENE LEW Not Available Start: 06-26-2023 End: 06-26-2023 ambulatory BAN CLEMENTE V Not Available Start: 06-19-2023 End: 06-19-2023 Patient encounter procedure Janene Louann Work Phone: [facility] [place] Work Phone: Start: 06-19-2023 End: 06-19-2023 ambulatory BANJustin VILLANUEVAS V Not Available Start: 05-25-2023 End: 05-25-2023 ambulatory SONIA HAQ Facility:[facility] Start: 05-17-2023 End: 05-17-2023 Patient encounter procedure Janene Louann Work Phone: [facility] [place] Work Phone: Start: 05-17-2023 End: 05-17-2023 ambulatory Janene Lew Work Phone: [facility] Work Phone: Start: 05-03-2023 End: 05-03-2023 ambulatory JANENE LEW Not Available Start: 03-15-2023 Registered Recurring Janene espitia Work Phone: [facility] Start: 03-14-2023 End: 03-14-2023 ambulatory [facility] Start: 02-19-2023 End: 02-19-2023 ambulatory Elza Conway MD Facility:[facility] Start: 01-01-2023 End: 01-01-2023 ambulatory Elza Conway MD Facility:[facility] Start: 11-29-2022 End: 11-29-2022 ambulatory Azaurelia Webers Other [facility] Other Start: 11-29-2022 Telephone encounter Azaurelia Webers [facility] Start: 09-18-2022 End: 09-18-2022 ambulatory Ivanying Sams Other [facility] Other Start: 09-18-2022 Telephone encounter Ivanying Sams [facility] Start: 09-07-2022 End: 09-07-2022 ambulatory [employer] JANENE AICHHOLZ Facility:[facility] Start: 08-14-2022 End: 08-14-2022 ambulatory Ivan Latrell Other [facility] Other Start: 08-14-2022 Office outpatient vi sit 25 minutes Ivan Latrell [facility] Start: 07-03-2022 End: 07-03-2022 ambulatory Ivan Latrell Other [facility] Other Start: 07-03-2022 Office consultation new/estab patient 60 min Ivan Latrell [facility] Start: 06-24-2022 End: 06-24-2022 Emergency department patient visit Janene Lew Work Phone: [facility] Work Phone: Start: 06-08-2022 End: 06-09-2022 ambulatory [employer] JANENE AICHHOLZ Facility:[facility] Start: 05-29-2022 End: 05-30-2022 ambulatory [employer] JANENE AICHHOLZ Facility:[facility] Start: 05-13-2022 ambulatory [employer] JANENE AICHHOLZ Facil ity:[facility] Start: 05-12-2022 End: 05-12-2022 ambulatory Christian Mckenzie Other [facility] Other Start: 05-12-2022 Office outpatient vi sit 15 minutes Christian Mckenzie [facility] Start: 04-25-2022 End: 01-10-2023 ambulatory Azaurelia Webers Other [facility] [employer] Other Start: 04-25-2022 Office outpatient ne w 30 minutes Halle Mac [facility] [place] Start: 03-29-2022 End: 03-30-2022 ambulatory [employer] JANENE AICHHOLZ Facility:[facility] Start: 03-23-2022 End: 03-24-2022 ambulatory [employer] JANENE AICHHOLZ Facility:[facility] Start: 02-19-2022 End: 02-19-2022 ambulatory [employer] JANENE AICHHOLZ Facility:[facility] Start: 02-16-2022 End: 02-16-[address] MYRIAM PERRIN . Facility:[facility] Start: 02-15-2022 ambulatory [employer] JANENE AICTimmyHOLZ Facil ity:[facility] Start: 01-25-2022 End: 01-25-2022 Patient encounter procedure Janene Middletonz Work Phone: [facility] Start: 01-25-2022 End: 01-25-2022 ambulatory Janene Moses Lew Work Phone: [facility] Work Phone: Start: 01-25-2022 Office outpatient vi sit 25 minutes Emma Bolivar [facility] Start: 01-25-2022 End: 01-26-2022 ambulatory [employer] JANENE AICHHOLZ Facility:[facility] Start: 01-23-2022 End: 01-24-2022 ambulatory [employer] JANENE AICHHOLZ Facility:[facility] Start: 01-12-2022 End: 01-13-2022 ambulatory [employer] JANENE AICHHOLZ Facility:[facility] Start: 12-21-2021 End: 12-22-2021 ambulatory [employer] JANENE AICHHOLZ Facility:[facility] Start: 12-06-2021 End: 12-06-2021 ambulatory Christian Mckenzie Other [place] [employer] Other Start: 12-06-2021 Office outpatient vi sit 15 minutes Christian Mckenzie [facility] Start: 11-30-2021 End: 11-30-2021 ambulatory [employer] JANENE AICHHOLZ Facility:[facility] Start: 11-28-2021 End: 11-29-2021 ambulatory [employer] JANENE LEW Facility:[facility] Start: 11-14-2021 End: 11-14-2021 ambulatory Janene Lew Work Phone: [facility] Work Phone: Start: 11-14-2021 End: 11-14-2021 Discharged Recurring Janene Lew Work Phone: [facility]-Physical Therapy [place] Start: 11-10-2021 End: 11-10-2021 ambulatory Christian Mckenzie Other [facility] Other Start: 11-10-2021 Postop follow up vis it related to original px Christian Mckenzie [facility] Start: 10-28-2021 End: 10-29-2021 ambulatory [employer] JANENE LEW Facility:[facility] Start: 10-02-2021 End: 10-02-2021 ambulatory [employer] JANENE LEW Facility:[facility] Start: 09-29-2021 End: 09-29-2021 ambulatory Christian Mckenzie Other [facility] Other Start: 09-29-2021 Postop follow up vis it related to original px Christian Mckenzie [facility] Start: 08-30-2021 End: 08-30-2021 ambulatory Christian Mckenzie Other [facility] Other Start: 08-30-2021 Postop follow up vis it related to original px Christian Mckenzie [facility] Start: 08-12-2021 Admission to same y surgery center Christian Mckenzie [facility] Start: 08-12-2021 End: 08-12-2021 ambulatory Christian Mckenzie Other [facility] Other Start: 08-23-2018 End: 08-25-2018 Evaluation and management of inpatient Pengchuck Merino Facility:[facility] Procedures Date Procedure Procedure Detail Performing Clinician Start: 11-01-2023 Colonoscopy Janene Garcia olrufus Work Phone: Start: 05-17-2023 Urine culture Janene espitia Work Phone: Start: 08-23-2018 FLUOROSCOPY OF MULTI PLE CORONARY ARTERIES USING OTH CONTRAST EHAB A [place] History of percutane ous transluminal coronary angioplasty History of PTCA Janene Jonesholrufus Work Phone: Plan of Treatment Date Care Activity Detail Author Start: 11-01-2023 [facility] Start: 10-02-2023 [facility] Start: 10-01-2023 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 to parcel contractor [facility] Start: 10-01-2023 Hospital admission [facility] Start: 05-17-2023 Bacteria identified in Urine by Culture [facility] Patient Education [facility] Work Phone: Patient referral [facility] Work Phone: Renal function 1999 panel - Serum or Plasma [facility] Renal function 1999 panel - Serum or Plasma [facility] Immunizations Immunization Date Immunization Notes Care Provider Fern osuna 05-17-2021 COVID-19 mRNA, Comirnaty (Pfizer) Janene Aichholz Work Phone: [facility] 09-06-2020 COVID-19 mRNA, Comirnaty (Pfizer) Janene Aichholz Work Phone: [facility] 08-16-2020 COVID-19 mRNA, Comirnaty (Pfizer) Janene Aichholz Work Phone: [facility] 01-31-2019 influenza, injectabl e, quadrivalent, preservative free Janene Aichholz Work Phone: [facility] 01-31-2019 influenza, injectabl e, quadrivalent, contains preservative Christian Mckenzie Other [facility] Other 03-15-2018 influenza, injectabl e, quadrivalent, preservative free Janene Lew Work Phone: [facility] 03-15-2018 influenza, injectabl e, quadrivalent, contains preservative Christian Mckenzie Other [facility] Other Payers Date Payer Category Payer Private Health Insurance [id number] 2023 Unknown [id number] 2022 Self-pay [id number] 2022 Medicaid [id number] [id number] 2022 Private Health Insurance [id number] 2.16.840.1.447819.19 2022 Private Health Insurance 2022 Unknown 2010 Self-pay [id number] 1970 Unknown [id number] 2.16.840.1.972789.3.579.2.64 7 1970 Unknown [id number] 2.16.840.1.508189.3.579.2.59 3 1970 Unknown [id number] 2.16.840.1.619140.3.579.2.59 3 1970 Unknown [id number] 2.16.840.1.464542.3.579.2.59 3 1970 Unknown [id number] 2.16.840.1.169266.3.579.2.59 3 1970 Unknown [id number] 2.16.840.1.314356.3.579.2.59 3 1970 Unknown [id number] 2.16.840.1.172181.3.579.2.59 3 1970 Unknown [id number] 2.16.840.1.383349.3.579.2.59 3 1970 Unknown [id number] 2.16.840.1.314968.3.579.2.59 3 1970 Unknown [id number] 2.16.840.1.291722.3.579.2.59 3 1970 Unknown [id number] 2.16.840.1.275223.3.579.2.59 3 1970 Unknown [id number] 2.16.840.1.774017.3.579.2.59 3 1970 Unknown [id number] 2.16.840.1.968264.3.579.2.59 3 1970 Unknown [id number] 2.16.840.1.768672.3.579.2.59 3 1970 Unknown [id number] 2.16.840.1.845041.3.579.2.59 3 1970 Unknown [id number] 2.16.840.1.181658.3.579.2.59 3 1970 Unknown [id number] 2.16.840.1.728671.3.579.2.59 3 1970 Unknown [id number] 2.16.840.1.846165.3.579.2.59 3 1970 Unknown [id number] 2.16.840.1.253254.3.579.2.71 8 1970 Unknown [id number] 2.16.840.1.752728.3.579.2.12 59 1970 Unknown [id number] 2.16.840.1.615417.3.579.2.12 59 1970 Unknown [id number] 2.16.840.1.300414.3.579.2.12 59 1970 Unknown [id number] 2.16.840.1.647803.3.579.2.12 59 1970 Unknown [id number] 2.16.840.1.642008.3.579.2.12 59 10-1971 Unknown [id number] 2.16.840.1.287561.3.579.2.12 1970 Unknown [id number] 2.16.840.1.714835.3.579.2.12 1970 Unknown [id number] 2.16.840.1.106069.3.579.2.12 1970 Unknown [id number] 2.16.840.1.494365.3.579.2.12 1970 Unknown [id number] 2.16.840.1.537699.3.579.2.12 1970 Unknown [id number] 2.16.840.1.059926.3.579.2.12 1970 Unknown [id number] 2.16.840.1.678197.3.579.2.12 1970 Unknown [id number] 2.16.840.1.800278.3.579.2.12 1970 Unknown [id number] 2.16.840.1.026225.3.579.2.12 1970 Unknown [id number] 2.16.840.1.256809.3.579.2.19 1970 Unknown [id number] 2.16.840.1.782356.3.579.2.19 1970 Unknown [id number] 2.16.840.1.694831.3.579.2.19 1970 Unknown [id number] 2.16.840.1.022707.3.579.2.19 1970 Unknown [id number] 2.16.840.1.565022.3.579.2.19 6 1959 Private Health Insurance [id number] 2.16.840.1.204228.19 1959 Unknown [id number] 2.16.840.1.661647.19 Medicaid Anthem [place] Medicaid [id number] Unknown [place] BC/BS [id number] Unknown [id number] 2.16.840.1.041055.3.579.2.53 1 Unknown [id number] 2.16.840.1.457340.3.579.2.53 1 Unknown [id number] 2.16.840.1.797658.3.579.2.53 1 Unknown [id number] 2.16.840.1.541037.3.579.2.53 1 Unknown [id number] 2.16.840.1.827939.3.579.2.53 1 Unknown [id number] 2.16.840.1.456677.3.579.2.53 1 Unknown [id number] 2.16.840.1.023042.3.579.2.53 1 Social History Date Type Detail Facility Unknown if ever smoked [facility] Other Sex Assigned At Sex Assigned At Bir th [facility] Other Start: 08-12-2021 End: 11-01-2023 Tobacco smoking status NHIS Never smoked tobacco (finding) [facility] Start: 1970 Sex Assigned At Female F [facility] Goals Date Patient Goal Desired Activity /State Functional Status Date Assessment Result Facility 10-02-2023 Functional status Patient at Baseline [facility] Work Phone: Mental Status Date Assessment Result Facility 10-02-2023 Cognitive function Cognitive Sta tus Patient at Baseline [facility] Work Phone: Clinical Notes 08-30-2021 to 12-18-2023 Note Date & Type Note Facility 12-18-2023 Note [facility] Cardiology Clinic Note Chief Complaint: Pt is here for a follow up from a tilt table. Pt denies sob, chest pain, dizziness HPI: Sherly Humphreys is a 52 y.o. [...] has been diabetic for 15 years plus. Update 12/18/2023: She was taken off a specific psychiatry medication and her syncope episodes have resolved She has no new cardiovascular symptoms. Cardiology ROS:Review of Systems Cardiovascular: Positive for dyspnea on exertion. Neurological: Positive for dizziness and light-headedness. All [...] Take 1 tablet (80 mg) by mouth at bedtime., Disp: 90 tablet, Rfl: 3 buPROPion XL [...] by mouth with breakfast., Disp: , Rfl: FLUoxetine (PROzac) 10 mg capsule, Take by mouth in the morning., Disp: , Rfl: furosemide (Lasix) 20 mg tablet, Take 20 mg by mouth in the morning., Disp: , Rfl: gabapentin (Neurontin) 300 mg capsule, Take 300 mg by mouth if needed., Disp: , Rfl: isosorbide mononitrate ER (Imdur) 30 mg 24 hr tablet, Take 1 tablet (30 mg) by mouth once daily as directed., Disp: 90 tablet, Rfl: 3 lamoTRIgine (LaMICtal) [...] needed for 30 days., Disp: , Rfl: tiZANidine (Zanaflex) 4 mg capsule, Take 1 capsule as needed by oral route., Disp: , Rfl: escitalopram (Lexapro) 20 mg tablet, Take 1 tablet by mouth in the morning., Disp: , Rfl: glipiZIDE (Glucotrol) 5 mg tablet, Take 5 mg by mouth in the morning., Disp: , Rfl: pioglitazone (Actos) 45 mg tablet, , Disp: , Rfl: sacubitril-valsartan (Entresto) 49-51 mg tablet, Take 1 tablet by mouth in the morning and at bedtime., Disp: 180 tablet, Rfl: 3 spironolactone (Aldactone) 25 mg tablet, Take 1 tablet (25 mg) by mouth in the morning. (Patient not taking: Reported on 12/18/2023), Disp: 90 tablet, Rfl: 3 Last Recorded Vitals BP 144/76 (BP Location: Right wrist, Patient Position: Sitting) Pulse 67 Ht 1.651 m (5' 5 ) Wt 127 kg (280 lb) SpO2 99% BMI 46.59 kg/m??? Physical Examination: GENERAL: alert and oriented x3, well developed, in no acute distress. HEAD: atraumatic, normocephalic. EYES: GREG, EOMI. NECK: trachea midline, no JVD present, questionable R carotid bruit present. CARDIAC: S1, S2 present. R (more content not included)... [facility] 09-11-2023 Note [facility] Cardiology Clinic Note Chief Complaint: Patient [...] while walking through the store. HPI: Sherly Patel Sahra is a 52 y.o. female With the [...] HEAD: atraumatic, normocephal (more content not included)... [facility] 03-14-2023 Note [facility] Cardiology Clinic Note Chief Complaint: Patient here for 3 mo follow up CAD, hypertension, and diastolic heart failure. She was switched from lisinopril to Entresto at last visit in Nov 2022 by Radu rAias CNP. Spironolactone was also added. BMP done [...] Denies chest pain and palpitations. Went to [facility] recently and had to sit down [...] right ventricular systo (more content not included)... [facility] 08-14-2022 Evaluation note Encounter Date Diagnosis [...] - G89.29) Proceed with current treatment plan [facility] Other 03-20-2023 Evaluation note* Encounter Date Diagnosis [...] negative findings were considered in medical decision-making. [facility] Other 03-11-2023 Hospital Discharge instructions Additional Instructions [...] bowel control high fever or [facility] Phone: [phone]) 889-520101-27-2023 Evaluation note* Encounter Date Diagnosis Assessment Notes [...] A referral will monty sent to pain managemernt [facility] Other 01-10-2023 Evaluation note* Encounter Date Diagnosis [...] obesity (ICD-10 - E66.01) Encouraged weight loss [facility] Other 10-12-2022 Evaluation note* Encounter Date Diagnosis [...] strap. A prescription was sent to the [employer] for new supplies throughout the year, as [...] sleepiness, or poor response to treatment. . [facility] Other 08-23-2022 Evaluation note* Encounter Date Diagnosis Assessment Notes Treatment Notes Treatment Clinical Notes 23 Aug, 2022 Other chronic pain (ICD-10 - G89.29) Despite [...] of thoracolumbar intervertebral disc (ICD-10 - M51.25) [facility] Other 07-28-2022 Evaluation note* Encounter Date Diagnosis [...] a med check and PT follow up [facility] Other 06-16-2022 Evaluation note* Encounter Date Diagnosis [...] labor Sep, Thoracic myelopathy (ICD-10 - M47.14) [facility] Other 05-17-2022 Evaluation note* Encounter Date Diagnosis [...] Overall she is making a good recovery [facility] Other [facility]No [facility] Other evaluation noteNo assessment information available [facility] Work Phone: Evaluation note* Diagnosis Onset [...] disease reso lved Hypertensive nephropathy res olved [facility] Work Phone: Evaluation note* Diagnosis Onset [...] D deficiency acute Hypertensive nephropathy res olved [facility] Work Phone: History general Narrative - [...] History Tonsilectomy Teenager Hospitalization History See Above [facility] Other Hisnehn general Narrative - Reported* Type Description Date [...] BACK SURGERY 07/2021 Hospitalization History See Above [facility] Other Summary Purpose Family History No Family [...] 2018 4:43pm Hospital Course Note MR#: [id number] I [facility] Pt. Name: Sahra, Sherly A Admitted: 08/23/2018 Discharged: 08/25/2018 Date of : [...] Diagnosis 1 Thoracic myelopathy (M47.14) Referral Organization [facility] Referring Provider First Name Christian Referring Provider Last Name Alfonso Referring Provider Specialty Neurologica l Surgery Referred Organization [facility] Pain Managemen t Referred Provider Ivan Sams Referred Address [address] [place] [phone] Referred Provider Specialty Pain Medicin e Referral Priority Routine General Notes Nini Davison 023 12:45:54 PM >Received today and sent P2P Kristal Veloz 05/16/2022 02:01:28 PM >pt has been scheduled 06/02/22 Nini Davison 06/05/2022 09:01:37 AM >Patient was a no show to her appt Nini Davison 06/13/2022 11:23:40 AM >Telephone encounter was sent Reason Evaluate and Treat B ilateral Low Back Pain Diagnosis 1 Low back pain (M54.5 ) Referral Organization [facility] Referring Provider First Name Christian [...] Complaint Z79.899 bipolar disorder N18.32 I12.9 E11.21 Chief [...] Failure Acute Renal Failure N17.9 N18.9 F/U [facility] RENAL Reason for Visit Diabetic nephropathy [...] B12 deficiency Vitamin D deficiency Hypertensive nephropathy Chief Complaint i12.9 n18.32 e11.21 r60.0 e66.01 RENAL 6 MONTH F/U Acute Renal Failure Acute Renal Failure N17.9 N18.9 F/U HOSPITAL RENAL hx of colon polyps Reason for Visit Diabetic nephropathy associated with [...] and content) DATE CREATED AUTHOR 11/22/2018 [facility] DATE CREATED AUTHOR AUTHOR'S ORGANIZ ATION 09/22/2022 [facility] DATE CREATED AUTHOR AUTHOR'S ORGANIZ ATION 05/26/2023 [facility] DATE CREATED AUTHOR AUTHOR'S ORGANIZ ATION 12/06/2023 [facility] EPIC DATE CREATED AUTHOR AUTHOR'S ORGANIZ ATION 12/14/2023 [facility] DATE CREATED AUTHOR AUTHOR'S ORGANIZ ATION 12/19/2023 [facility] DATE CREATED AUTHOR AUTHOR'S ORGANIZ ATION 12/29/2023 [facility] REASON FOR VISIT (unrecogniz ed section and content) [id number] WK PO DISC ECTOMY6 wk po Discectomy3 [...] Lew Primary Care Provider Active Sta rt: June [...] Status: Inactive Member Role Status Dates [facility] Active Christian Mckenzie MD Attending Provider Active Team Status: Inactive Member Role Status Dates [facility] Provider Active Emma Bolivar NP Attending Provider Active Team Status: Inactive Member Role Status Dates [facility] Provider Active Merissa Hernandez , 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[employer] Emergency Provider Active Team Status: Inactive Member Role Status Dates [facility] Care Provider Active Sta rt: August [...] Status: Inactive Member Role Status Dates [facility] Provider Active Sta rt: October 01, 2023 End: October 02, 2023 Alma Deng MD Admit Provider Active Start: October 01, 2023 End: October 02, 2023 Des Benitez MD Other Provider Active Start: 2023 End: October 02, 2023 Fernando Rosenberg MD Attending Provider Active Start: October 01, 2023 End: October 02, 2023 Team Status: Active Member Role Status Dates [facility] Provider Active Sta rt: October 01, 2023 Alma Deng MD Admit Provider Active Start: October 01, 2023 Des Benitez MD Attending Provider, Other Provider Active Start: October 01, 2023 Fernando Rosenberg MD Other Provider Active Start: October 01, 2023 Team Status: Inactive Member Role Status Dates [facility] Care Provider Active Sta rt: October 11, 2023 End: October 11, 2023 Fernando Rosenberg MD Attending Provider Active Start: October 11, 2023 End: October 11, 2023 Team Status: Active Member Role Status Dates [facility] Care Provider Active Sta rt: October 16, 2023 Valdemar Alonso MD Attending Provider Active Start: October 16, 2023 Team Status: Inactive Member Role Status Dates Janene Lopes Louann Primary Care Provider Active Sta rt: October 16, 2023 End: October 16, 2023 Halle Mac MD Attending Provider Active Star t: October 16, 2023 End: October 16, 2023 Team Status: Active Member Role Status Dates Janene Lew Primary Care Provider Active Sta rt: October 29, 2023 Valdemar Alonso MD Attending Provider Active Start: October 29, 2023 Team Status: Inactive Member Role Status Dates Janene J Louann Primary Care Provider Active Sta rt: November 01, 2023 End: November 01, 2023 Ban Clemente MD Attending Provider Active Sta rt: November 01, 2023 End: November 01, 2023 Goals (unrecognized section and content) Goals [...] BE BASED ON THE PRIMARY CLINICAL RECORDS. [facility]. provides no warranty or guarantee of the accuracy or completeness of information in this document.
--- NOTE | 2024-01-03 09:22 | PM.CN ---
Consult Note: HPI Data of Consult Patient: known to practice within the last 3 years Consult date: 01/01/23 Requesting Physician: Becca Meneses NP Primary Care Provider: Janene Lew NP Consult Narrative Reason for consult: f/u Narrative: pleasant 53yof who presents for evaluation. increasing middle and low back pain. imaging reviewed of lumbar spine consistent with lumbar spondylosis and facet arthropathy, thoracic spine consists of degenerative changes and bulging disc. continues to engage in >6 week course of provider directed home exercises 2x/week, with limited benefit. underwent two previous discectomies, with little relief. her previous neurosurgeon does not recommend further surgery. was advised to consider scs.. cannot take NSAIDs, hx of gastric bypass. she utilizes gabapentin, tizanidine, and percocet. denies adverse med side effects. Today pain 4/10 in right middle back, bilateral buttock, bilateral low back, feels like a burning sharp pain, increasing to 10/10 with standing walking working lifting bending and sleep. Patient continues to find functional improvement from current medication regimen. most recently underwent bilateral L4-5 L5-S1 facet medial branch RFA with 50% improvement in axial low back pain. cc:: CC: Becca Meneses NP Review of Systems ROS Status of ROS 10 or more systems reviewed and unremarkable except as noted in history and below Musculoskeletal Reports: back pain and extremity pain PFSH PFSH Medical History Bipolar 1 disorder ?F31.9 - Bipolar disorder, unspecified (ICD-10) Anxiety ?F41.9 - Anxiety disorder, unspecified (ICD-10) Diabetes ?E11.9 - Type 2 diabetes mellitus without complications (ICD-10) URIEL on CPAP ?G47.33 - Obstructive sleep apnea (adult) (pediatric) (ICD-10) Sleep apnea ?G47.30 - Sleep apnea, unspecified (ICD-10) High cholesterol ?E78.00 - Pure hypercholesterolemia, unspecified (ICD-10) CHF (congestive heart failure) ?I50.9 - Heart failure, unspecified (ICD-10) Surgical History History of hysterectomy ?Z90.710 - Acquired absence of both cervix and uterus (ICD-10) History of shoulder surgery ?Z98.890 - Other specified postprocedural states (ICD-10) History of neck surgery ?Z98.890 - Other specified postprocedural states (ICD-10) History of back surgery ?Z98.890 - Other specified postprocedural states (ICD-10) History of heart artery stent ?Z95.5 - Presence of coronary angioplasty implant and graft (ICD-10) Social History Smoking status: Never smoker Meds Home Medications and Allergies Home Medications ?Medication ?Instructions ?Recorded ?Confirmed ?Type amlodipine 10 mg tablet 10 mg PO QDAY 12/18/22 12/03/23 History aripiprazole 10 mg tablet 10 mg PO QDAY 12/18/22 12/03/23 History aspirin 81 mg chewable tablet 81 mg PO QDAY 12/18/22 12/03/23 History atorvastatin 80 mg tablet 80 mg PO QDAY 12/18/22 12/03/23 History buspirone 30 mg tablet 30 mg PO BID 12/18/22 12/03/23 History cariprazine 6 mg capsule (Vraylar) 6 mg PO Q24H 12/18/22 12/03/23 History fenofibrate nanocrystallized 145 145 mg PO QDAY 12/18/22 12/03/23 History mg tablet furosemide 20 mg tablet 40 mg PO QDAY 12/18/22 12/03/23 History gabapentin 600 mg tablet 600 mg PO QDAY PRN neuromuscular 12/18/22 12/03/23 History blockade isosorbide mononitrate 30 mg 30 mg PO QDAY 12/18/22 12/03/23 History tablet,extended release 24 hr metoprolol succinate 25 mg 12.5 mg PO QDAY 12/18/22 12/03/23 History tablet,extended release 24 hr pioglitazone 45 mg tablet 45 mg PO QDAY 12/18/22 12/03/23 History sacubitril 49 mg-valsartan 51 mg 1 tab PO BID 12/18/22 12/03/23 History tablet (Entresto) spironolactone 25 mg tablet 25 mg PO QDAY 12/18/22 12/03/23 History tizanidine 4 mg tablet 4 mg PO Q8H PRN muscle spasticity 12/18/22 12/03/23 History cetirizine 10 mg tablet (Zyrtec) 10 mg PO DAILY PRN allergy symptoms 01/01/23 12/03/23 History ferrous sulfate 134 mg (27 mg 134 mg PO DAILY 01/01/23 12/03/23 History iron) tablet (High Potency Iron) fluoxetine 10 mg capsule (Prozac) 10 mg PO DAILY 09/24/23 12/03/23 History oxycodone-acetaminophen 7.5 mg-325 1 tab PO BID PRN pain #60 tabs 10/23/23 12/03/23 Rx mg tablet (Percocet) diazepam 10 mg tablet 10 mg PO PRN sedation 12/03/23 History oxycodone-acetaminophen 7.5 mg-325 1 tab PO BID PRN pain #60 tabs 12/21/23 Rx mg tablet (Endocet) Allergies Allergy/AdvReac Type Severity Reaction Status Date / Time Sulfa (Sulfonamide Allergy Mild Hives Verified 12/03/23 10:09 Antibiotics) prochlorperazine AdvReac Intermediate Agitated Verified 12/03/23 10:09 [From Compazine] promethazine [From Phenergan] AdvReac Intermediate Agitated Verified 12/03/23 10:09 sulfamethoxazole AdvReac Mild Hives Verified 12/03/23 10:09 [From Bactrim] trimethoprim [From Bactrim] AdvReac Mild Hives Verified 12/03/23 10:09 Exam Constitutional Documenting provider has reviewed patient's vital signs: yes Common normals: no apparent distress, oriented x3, healthy appearing, alert and well nourished General appearance: cooperative [facility] Common normals: normocephalic, hearing grossly normal bilaterally and moist oral mucous membranes Head and scalp: normocephalic Eye Common normals: PERRL Pupil: PERRL Neck & C-Spine Common normals: full ROM General: normal visual inspection Chest Common normals: inspection of chest normal Respiratory Common normals: normal respiratory effort, no retractions and no use of accessory muscles Back & Pelvis Thoracic spine/upper back: ROM limited, pain with ROM and thoracic spinal tenderness Lumbar spine/lower back: ROM limited, pain with ROM and straight leg raise negative bilaterally Other: positive facet loading at T10-L3 radiculopathy following T12-L1 patterns strength 5/5 in BLE, sensation intact Extremity Common normals: normal to inspection and full ROM Neuro Common normals: oriented x3, CN's II-XII intact bilaterally, moves all extremities, no focal motor deficits, no sensory deficits noted and deep tendon reflexes 2+ bilaterally Sensorium/orientation: alert Motor exam: strength 5/5 throughout and no movement abnormalities noted Psych Common normals: mental status grossly normal, thought process normal, cooperative, affect normal, speech normal and activity/motor behavior normal Speech: normal speech Thought process: normal thought process Results Additional Findings Additional findings: If on a controlled substance or opioids, I have checked an [place]AR[place] report on this patient and there are no aberrancies noted in the prescribing history.??If on a controlled substance or opioid a drug screen was completed and reviewed within the last year, and if there has not been a drug screen completed we ordered one today to monitor higher risk, state monitored pain medication use. As part of providing excellent, safe, comprehensive care, the following was completed at our patient's visit: 1. A medication reconciliation and review to ensure accurate knowledge of current/active medications, including asking our patients to inform us about any [id number]-[id number] medications or herbal remedies/nutritional supplements/alternative remedies. 2. A review to specifically ensure our patients have had annual screening for screening for depression, screening for tobacco use, and screening for unhealthy alcohol use. For concerning screenings had a discussion with the patient, provided patient education, and recommended follow-up with primary care provider when appropriate. If patient noted with a risk of falling, they received education on strength, gait, and balance training to prevent future risk of falling. Assessment and Plan Assessment and Plan (1) Lumbar spondylosis: Assessment and Plan: The patient has had over 3 months of moderate to severe low back pain with functional impairment and inadequate response to conservative care including NSAIDS (unless there are contraindication such as concurrent blood thinners), multiple oral or topical pain medications, and home exercise program/physical therapy.? Patient has completed >6 weeks of guided home exercise program and/or formal physical therapy program without relief of their symptoms.? The Oswestry Disability Index was completed, and the patient scored a 40%.? The patient noted the following:?? moderate to severe pain, pain with ADLs, pain with walking, pain impacting sleep, pain impacting social life and travel? (2) Thoracic radiculopathy: (3) Thoracic stenosis: (4) Chronic prescription opiate use: Assessment and Plan: I feel these medications are improving the patient's quality of life and allow them to tolerate activities of daily living as well as participate in recreational activity.? The patient does not report intolerable side effects. The patient is NOT opioid naive and non-pharmacologic and non-opioid treatment has failed to significantly relieve the patient's pain and improve functionality. The patient has a diagnosis that is related to a somatic or visceral pain etiology. ? ?? I reviewed with the patient the potential risks and side effects with the use of? opioid medications including but not limited to respiratory depression,? sedation, and even . I verified the patient has access to naloxone should? these effects occur. I advised the patient to avoid the use of any other? sedation substances including alcohol, THC, and benzodiazepines while? taking opioid medications due to the risk of compounding side effects and? detrimental outcomes. I reviewed the MEDICAL TECHNICAL WRITER, pain treatment agreement, urine? drug screen, and opioid start talking forms. The patient was advised to let? their family know they had Naloxone in case they would need to administer? the medication.? ?? A drug screen was completed within the last year, and no aberrancies were noted regarding their use of controlled substances. The patient understands they are subject to the terms and conditions of the pain contract that they have signed. ? ?? I have checked an OARRS report on this patient today and there are no aberrancies noted in the prescribing history.? (5) Chronic pain syndrome: (6) Failed back syndrome: Plan patient would like to discuss surgical intervention options with Dr Kc, previous NS did not recommend additional surgery and proposed SCS. Patient and i reviewed the risks vs benefits of the SCS trial and the preop workup, she would like to proceed if she is not a surgical candidate continue current medications, risks vs benefits reviewed update thoracic and lumbar MRI without contrast to evaluate chronic back pain, failed back syndrome, lumbar stenosis with NC, thoracic radiculopathy unresponsive to greater than 6 weeks of provider guided HEP, above listed medications, heat/ice f/u after NS consult
== END 2024-01-03 08:52 | disposition home or self-care (01) ==
LOC: PM 08:53
PROVIDERS: PCP Nurse Practitioner; Visit Provider Nurse Practitioner
DX: Z01.818 Encounter for other preprocedural examination (principal); M47.816 Spondylosis without myelopathy or radiculopathy, lumbar region; M54.14 Radiculopathy, thoracic region; M48.04 Spinal stenosis, thoracic region; Z79.891 Long term (current) use of opiate analgesic; M96.1 Postlaminectomy syndrome, not elsewhere classified; G89.4 Chronic pain syndrome; Z45.42 Encounter for adjustment and management of neurostimulator
CPT/HCPCS: G0463

== ENCOUNTER 2024-01-31 09:26 | Outpatient (OUT) | payer BC, SELFPAY ==
--- NOTE | 2024-01-31 09:29 | MR_ITS ---
The [address] [address] Patient Name: SHARLENE HUMPHREYS MRN: [facility]:[id number] date: 1970 Sex: F Assigned Patient Location: MRI Current Patient Location: Accession/Order Number: [id number] Exam Date: 01/31/2024 10:00 Report Date: 02/01/2024 07:33 At the request of: ELIZABETH DIAMOND Procedure: MR lumbar spine wo con EXAMINATION: MR lumbar spine wo con HISTORY: Lumbar Spondylosis COMPARISON: No relevant comparison available. TECHNIQUE: A variety of imaging planes and parameters were utilized for visualization of suspected pathology. FINDINGS: For the purposes of numbering, sagittal T2 image # 9 extends from the T11 vertebral body superiorly to the S4 level inferiorly. PARASPINAL AREA: Normal with no visible mass. BONES: Normal alignment with no acute fracture or spondylolisthesis. Mildly heterogeneous marrow signal. Schmorl's nodes along the superior endplate of L1 and L2 CORD/CAUDA EQUINA: Normal caliber, contour, and signal intensity. DISC LEVELS: 12-L1: Right paracentral and lateral disc herniation of the extrusion type extending posteriorly up to 5 mm measuring 1.6 cm transversely, mild superior and inferior migration.r this results in moderate to severe narrowing of the central canal down to 7.2 mm axial image #4. Degenerative changes resulting in moderate right foraminal stenosis L1-L2: Moderate degenerative disc disease is present without visible neural impingement. L2-L3: Disc desiccation. Posterior central disc protrusion. No central or foraminal stenosis L3-L4: Early degenerative disc disease is present without focal protrusion or neural impingement. L4-L5: Early degenerative disc disease is present without focal protrusion or neural impingement. L5-S1: Early degenerative disc disease is present without focal protrusion or neural impingement. MR/MR lumbar spine wo con IMPRESSION: Degenerative changes and disc herniation T12-L1 level resulting in central canal and right foraminal stenosis Electronically authenticated by: ALEX ALLEN Date: 02/01/2024 07:33
--- OUTSIDE RECORDS SUMMARY | 2024-01-31 09:42 | XMS_ITS | CCD ---
Author Organization [facility] Care Team Providers Care Fur Dry Cleaner Name Role Phone Peng Merino Admitting Unavailable Peng Merino Attending Unavailable GEOVANNI BRUNNER Primary Care Unavailable HAMMAD LING Referring Unavailabl e [place] Procedure Practitioner Unavailab TK [place] Surgeon Unavailable Christian Mckenzie Unavailable Janene Lew Primary Care Provider MD Christian Mckenzie Attending Provider [phone] ELIER Bolivar Emma Attending Provider Emma Bolivar Unavailable Halle Mac Unavailable Janene Lew Primary Care Provider STU Hernandez-LYNNE Antunez Emergency Provider Ivan Sams Unavailable AICHHOLZ, PONY ROUGHER JANENE Consulting Unavailable AICHHOLZ, PONY ROUGHER JANENE Attending Unavailable AICHHOLZ, PONY ROUGHER JANENE Admitting Unavailable AICHHOLZ, PONY ROUGHER JANENE Primary Care Unavailable AICHHOLZ, PONY ROUGHER JANENE Consulting Unavailable AICHHOLZ, PONY ROUGHER JANENE Attending Unavailable AICHHOLZ, PONY ROUGHER JANENE Admitting Unavailable AICHHOLZ, PONY ROUGHER JANENE Primary Care Unavailable AICHHOLZ, PONY ROUGHER JANENE Primary Care Unavailable AICHHOLZ, PONY ROUGHER JANENE Consulting Unavailable AICHHOLZ, PONY ROUGHER JANENE Admitting Unavailable AICHHOLZ, PONY ROUGHER JANENE Attending Unavailable AYDIN Carrillo, DR MIGUEL Attending Unavailable DR MYRIAM SAMANIEGO Admitting Unavailable AYDIN ., DR MIGUEL Consulting Unavailable AICHHOLZ, PONY ROUGHER JANENE Primary Care Unavailable AICHHOLZ, PONY ROUGHER JANENE Primary Care Unavailable DWAYNE FRIEDMAN Admitting Unavailable DWAYNE FRIEDMAN Attending Unavailable CASH .CLEMENT Consulting Unavailable Wan Jenkins Consulting Unavailable AICHHOLZ, PONY ROUGHER JAENNE Primary Care Unavailable JP, EVON Attending Unavailable JP, EVON Admitting Unavailable EVON TRAMMELL Consulting Unavailable LUZ COELLO Consulting Unavailable NATHAN COLE Consulting Unavailable LIN GARRETT Consulting Unavailable AICHHOLZ, PONY ROUGHER JANENE Primary Care Unavailable AICHHOLZ, PONY ROUGHER JANENE Admitting Unavailable AICHHOLZ, PONY ROUGHER JANENE Attending Unavailable TIFFANY, DR ALEX Ashley Consulting Unavailable AICHHOLZ, PONY ROUGHER JANENE Consulting Unavailable AICHHOLZ, PONY ROUGHER JANENE Consulting Unavailable AICHHOLZ, PONY ROUGHER JANENE Attending Unavailable AICHHOLZ, PONY ROUGHER JANENE Admitting Unavailable AICHHOLZ, PONY ROUGHER JANENE Primary Care Unavailable DR KATHY LOBATO Consulting Unavailable AICHHOLZ, PONY ROUGHER JANENE Attending Unavailable AICHHOLZ, PONY ROUGHER JANENE Admitting Unavailable AICHHOLZ, PONY ROUGHER JANENE Primary Care Unavailable DR ALXE ALLEN V Consulting Unavailable AICHHOLZ, PONY ROUGHER JANENE Consulting Unavailable AICHHOLZ, PONY ROUGHER JANENE Consulting Unavailable AICHHOLZ, PONY ROUGHER JANENE Primary Care Unavailable AICHHOLZ, PONY ROUGHER JANENE Attending Unavailable AICHHOLZ, PONY ROUGHER JANENE Admitting Unavailable AICHHOLZ, PONY ROUGHER JANENE Primary Care Unavailable AICHHOLZ, PONY ROUGHER JANENE Admitting Unavailable AICHHOLZ, PONY ROUGHER JANENE Consulting Unavailable AICHHOLZ, PONY ROUGHER JANENE Attending Unavailable DR KATHY LOBATO Consulting Unavailable AICHHOLZ, PONY ROUGHER JANENE Primary Care Unavailable BAKHOUS, AZIZ Admitting Unavailable BAKHOUS, AZIZ Attending Unavailable AICHHOLZ, PONY ROUGHER JANENE Attending Unavailable AICHHOLZ, PONY ROUGHER JANENE Admitting Unavailable AICHHOLZ, PONY ROUGHER JANENE Primary Care Unavailable AICHHOLZ, PONY ROUGHER JANENE Primary Care Unavailable AICHHOLZ, PONY ROUGHER JANENE Consulting Unavailable AICHHOLZ, PONY ROUGHER JANENE Attending Unavailable AICHHOLZ, PONY ROUGHER JANENE Admitting Unavailable DR KATHY LOBATO Consulting Unavailable AICHHOLZ, PONY ROUGHER JANENE Primary Care Unavailable AICHHOLZ, PONY ROUGHER JANENE Admitting Unavailable AICHHOLZ, PONY ROUGHER JANENE Attending Unavailable AICHHOLZ, PONY ROUGHER JANENE Consulting Unavailable AICHHOLZ, PONY ROUGHER JANENE Primary Care Unavailable AMBER ., DOLORES Attending Unavailable AMBER ., DOLORES Admitting Unavailable RAMIREZ ., MR LIN Consulting Unavailable AMBER ., DOLORES Consulting Unavailable ALEX AVINA Consulting Unavailable AICHHOLZ, PONY ROUGHER JANENE Primary Care Unavailable JP, EVON Attending Unavailable JP, EVON Admitting Unavailable JP, EVON Consulting Unavailable Aichholz, Janene J Primary Care Provider MD Valdemar Alonso Attending Provider MD Fauzia Huffman Attending Provider UnavailMD Halle Felton Referring Provider SONIA HAQ Primary Care Unavailable Aicpanchitoholz, Janene J Attending Unavailable Aicpanchitoholz, Janene J Admitting Unavailable Aichholz, Janene J Primary Care Provider MD Fauzia Huffman Attending Provider UnavailMD Halle [place] Referring Provider MD Halle Mac Attending Provider Emirufus, Janene J Primary Care Provider MD Valdemar Alonso Attending Provider MD Alam Deng Admit Provider MD Emmanuel [facility] Other Provider MD Fernando Rosenberg Attending Provider MD Valdemar Alonso Attending Provider [phone] MD Valdemar Alonso Attending Provider MD Ban Clemente Attending Provider [phone] LOUANN, JANENE Attending Unavailable BAN ARTIS Attending Unavailable AICHHOLZ, JANENE Referring Unavailable CLEMENTEBAN Child Attending Unavailable AICHHOLZ, JANENE Attending Unavailable JESSICA GASPAR Attending Unavailable AICHHOLZ, JANENE Referring Unavailable RUSHERJESSICA Referring Unavailable AICHHOLZ, JANENE Attending Unavailable CLEMENTE BAN Ashley Attending Unavailable SHAIKH SCOTT Attending Unavailable AICHHOLZ, [...] EHAB Attending Unavailable ELTAHAWY, EHAB Attending Unavailable Aichholz, Janene J Primary Care Unavailable Valdemar Alonso Attending Unavailab Valdemar Brock Admitting Unavailab Des Interiano Unavailable Alma Deng Admitting Unavailable Aichholz, Janene J Primary Care Unavailable Doamekpor, Fernando E Attending Unavailab le Aichholz, Janene J Primary Care Unavailable Ban Clemente Attending Unavailable Kelechi Clementet Admitting Unavailable Aichholz, Janene J Primary Care Unavailable Doamekpor, Fernando E Attending Unavailab le Doamekpor, Fernando E Admitting Unavailab le Tias, Aziz Attending Unavailable Bakmichaels, Aziz Admitting Unavailable Aichholz, Janene J Primary Care Unavailable Fauzia Huffman Attending Unavailable Nicolást Fauzia L Admitting Unavailable Aichholz, Janene J Primary Care Unavailable Bakhous, Aziz Referring Unavailable SproutFauzia L Attending Unavailable Sprout, Fauzia L Admitting Unavailable Aichholz, Janene J Primary Care Unavailable Allergies Allergy Classification Reported Allergen(s) Allergy Type Date of Onset Reaction(s) Facility (2 sources) Cephalexin Drug Allergy 10-06-19 10 [facility] Repository (2 sources) Levamisole Drug Allergy 05-22-19 13 [facility] Repository (2 sources) Omeprazole; Translations: [OMEPRAZOLE] Drug Allergy 04-20-19 16 [facility] Repository (14 sources) Prochlorperazine Drug Allergy 10-06-19 10 Unknown [facility] Repository (14 sources) Sulfamethoxazole / Trimethoprim Drug Allergy 10-06-19 10 Unknown [facility] Repository (12 sources) Penicillins (Antibiotic) Propensity to adverse reactions Unknown Bjond Other (20 sources) Promethazine; Translations: [PROMETHAZINE] Drug Allergy 06-28-19 14 Unknown, Seizure [facility] (10 sources) empagliflozin; Translations: [EMPAGLIFLOZIN] Drug Allergy 08-11-19 22 Unknown Reaction [facility] (11 sources) Penicillins; Translations: [Penicillins] Allergy to substance 06-28-19 14 [facility] (10 sources) Prochlorperazine; Translations: [PROCHLORPERAZINE] Drug Allergy 06-28-19 14 [facility] (10 sources) Sulfamethoxazole; Translations: [SULFAMETHOXAZOLE] Drug Allergy 06-28-19 14 [facility] (9 sources) Trimethoprim; Translations: [trimethoprim] Drug Allergy 08-11-19 22 [facility] (1 source) Sulfonamides (Antibiotic) Drug allergy (disorder) 06-10-19 15 [facility] Repository (4 sources) zolpidem; Translations: [zolpidem] Drug Allergy 10-01-19 24 Unknown Reaction [facility] (1 source) Cephalexin; Translations: [CEPHALEXIN] Drug Allergy 06-28-19 14 [facility] Repository (1 source) Doxycycline; Translations: [DOXYCYCLINE CALCIUM] Drug Allergy 06-28-19 14 [facility] Repository (1 source) Esomeprazole; Translations: [ESOMEPRAZOLE MAGNESIUM] Drug Allergy 06-23-19 17 [facility] Repository (1 source) pantoprazole; Translations: [PANTOPRAZOLE] Drug Allergy 06-23-19 17 [facility] Repository (1 source) Sulfamethoxazole / Trimethoprim; Translations: [SULFAMETHOXAZOLE-T RIMETHOPRIM] Drug Allergy 04-03-20 14 [facility] Repository (1 source) PHENERGAN PLAIN; Translations: [PHENERGAN PLAIN] Propensity to adverse reactions to drug (disorder) 09-17-19 [facility] Repository (1 source) Promethazine Drug Allergy 10-16-19 [facility] Repository Medications Current Medications Medication Drug Class(es) [...] June 24, 2022 August 15, 2023 10:12am [id number] 200 actuat albuterol 0.09 mg/actuat metered dose [...] 2023 12:00am take 1 capsule by mo [facility] every twenty-four hours Vraylar 6 MG 1 [...] 15, 2023 12:00am [facility] 1 [facility]-four hours Lasix 20 MG 1 [...] Start: 11-10-2021 take 2 tablets by mo [facility] every twelve hours Gabapentin 600 MG 2 tablets Orally bid for 20 days Oct, Active Start: 09-29-2021 take 1-2 capsules by mouth twice daily Gabapentin 300 MG 1-2 capsule Orally twice a day for 30 day(s) Sep, Active Start: 12-05-2019 take 1 capsule by mo [facility] every twenty-four hours Gabapentin 300 MG 1 [...] 2021 1:00am August 15, 2023 10:11am Mirtazapine [facility], 2129 Active mometasone furoate 0.05 mg/actuat metered [...] [Chronic kidney disease, stage 3b] Onset: 08-10-2023 Conditions associated with dizziness or vertigo (2 sources) Dizziness and giddiness; Translations: [Dizziness and giddiness] Onset: 11-13-2023 Episodic Coronary atherosclerosis and other heart disease (11 sources) Coronary arteriosclerosis; Translations: [Atherosclerotic heart disease of robinson coronary artery without angina pectoris] Onset: 09-11-2022 [...] vitamins] 10-10-2023 Episodic Other aftercare (1 source) snf (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; Translations: [PLATE MAKER ZINC CURRENT USE OF ASPIRIN] Onset: 09-11-2022 Episodic Other aftercare (1 source) snf (current) use of oral hypoglycemic drugs; Translations: [SKILLED NURSING USE ORAL HYPOGLYCEMIC DX] Onset: 09-11-2022 Episodic Other aftercare (1 source) Other [facility] (current) drug therapy; Translations: [OTH SKILLED NURSING CURRENT DRUG THERAPY] Onset: 09-11-2022 Episodic Other [...] thoracolumbar region] Onset: 09-29-2021 Resolved: 12-06-2021 Chronic Unclassified (1 source) CHRN KIDNEY DISEASE STG [...] Translations: [UNSPECIFIED ABDOMINAL PAIN] Onset: 02-21-2022 Episodic Acute and unspecified renal failure (7 sources) Acute renal failure syndrome; Translations: [Acute kidney failure, unspecified] Onset: 10-01-2023 10-10-2023 Episodic Deficiency and other anemia (4 sources) [...] back pain] Onset: 08-30-2021 Resolved: 08-30-2021 Episodic Syncope (2 sources) Syncope and collapse; Translations: [Syncope and collapse] Onset: 09-11-2023 Episodic Unclassified (1 source) CONTACT W/AND (SUSP) EXPOS COVID-19; Translations: [CONTACT W/AND (SUSP) EXPOS COVID-19] Onset: 12-21-2021 Results Test Name Value Interpretation Reference Range Facility Office Visiton 12-18-2023 Follow-up visit [id number] Nithin Humphreys 1970 F Date Provider Department Center 12/18/2023 [id number], EHAB CARD [facility] No family history on file Level of Service:28574 [place] OFFICE/OUTPATIENT ESTABLISHED LOW MDM 20 MIN Normal [facility] Capillary blood glucose timmy urement by glucometer (mass/volume)Ordered By: Ban Clemente on 11-01-2023 Glucose [Mass/Vol] 107 mg/dL Normal [facility] Comment on above: Random Glucose Refer ence Range is dependent on time and content of last meal. Glucose of more than 200 mg/dL in a nonstressed, ambulatory subject supports the diagnosis of Diabetes Mellitus. Result Comment: [facility] Glucose Reference Range is dependent on time and content of last meal. Glucose of more than 200 mg/dL in a nonstressed, ambulatory subject supports the diagnosis of Diabetes Mellitus. PERFORMED BY: [place] [address] PATHOLOGIST GASTROENTEROLOGY TEACHER ARIC BUTLER M.D. Performed By: #### A FRANCISCO, CUU #### [facility] [address] [place] [id number] [facility] Glucose Poct Glucometerson 0 11-01-2023 Commemt1 Glu2: Cleaned Meter Normal [facility] Comment on above: Result Comment: PERF ORMED BY: [facility] [address] [place] [address] PATHOLOGIST GASTROENTEROLOGY TEACHER ARIC UBTLER M.D. Performed By: #### A LANETTEPLUS, CUU #### [facility] [address] [place], [place] [id number] [place] Glucose [Mass/Vol] 70 mg/dL Normal [facility] Comment on above: Result Comment: [facility] Glucose Reference Range is dependent on time and content of last meal. Glucose of more than 200 mg/dL in a nonstressed, ambulatory subject supports the diagnosis of Diabetes Mellitus. Performed By: #### A DDONUAPLUS, [facility] #### [facility] [address] [place] 11-01-2023 L Specimen: [id number] Received: 11/01/23 Status: MEENAKSHI Iversonjarred Num: [id number] Spec Type: Surgical Subm Dr: Ban Clemente MD Tissues: A Colon Biopsy (CECAL POLYP) Procedures: HE/2, Gross/Micro L4 Age/ Patient Sex Location Account Attending Physician Sherly Humphreys 52/F [place] [id number] Ban Clemente MD SPEC NUM: [id number] RECD: 11/01/23 STATUS: MEENAKSHI HINOJOSA NUM: [id number] RORY: 11/01/23 DR: Ban Clemente MD ENTERED: 11/01/238 [facility] DR: SPEC TYPE: Surgical DEPT: S ORDERED: HE/2, Gross/Micro L4 ORDERED: HE/2, Gross/Micro L4 Pathological Diagnosis Colon, cecal polyp (endoscopic polypectomy/biopsy): Tubular adenoma Clinical Information History of polyp Gross Description Received in formalin labeled with the patient's name, date of and cecal polyp is a 0.3 x 0.3 x 0.2 cm adame polypoid tissue fragment, entirely submitted in A1. CPT Codes 15663 Specimen: [id number] Received: 11/01/23-1256 Status: MEENAKSHI Hinojosa Num: [id number] Spec Type: Surgical Subm Dr: Ban Clemente MD Tissues: A Colon Biopsy (CECAL POLYP) Procedures: HE/2, Gross/Micro L4 Patient: Sherly Humphreys [id number] (Continued) Signed (signature on file) Herminio Ragsdale Jr., MD 11/05/231907 Normal [facility] No Panel InformationOrdered By: Ban Clemente on 11-01-2023 Bedside Glucose Comment Glu2: cleaned meter [facility] Basic Metabolic Panelon 09-15 GFR/1.73 sq M.predicted MDRD (S/P/Bld) [Vol rate/Area] 28.812 mL/min/{1.73_m2} Normal [facility] Comment on above: Performed By: #### B MP #### [address] Calcium [Mass/volume] in Ser um or PlasmaOrdered By: Fernando Rosenberg on 10-11-2023 Calcium [Mass/Vol] 9.7 mg/dL Normal 8.6-10.3 [facility] Comment on above: Result Comment: PERF ORMED BY: [place] [address] PATHOLOGIST GASTROENTEROLOGY TEACHER ARIC BUTLER M.D. Performed By: #### B MP #### [facility] [address] [place] [address] [place] Carbon dioxide, total [Moles /volume] in Serum or PlasmaOrdered By: Fernando Rosenberg on 10-11-2023 CO2 [Moles/Vol] 26.7 mmol/L Normal 21.0-31.0 [facility] Comment on above: Performed By: #### B MP #### [facility] [address] [place] [address] [place] Chloride [Moles/volume] in S brunilda or PlasmaOrdered By: Fernando Rosenberg on 10-11-2023 Chloride [Moles/Vol] 107 mmol/L Normal 98-107 [facility] Comment on above: Performed By: #### B MP #### [facility] [address] [place] [address] [place] Creatinine [Mass/volume] in Serum or PlasmaOrdered By: Fernando Rosenberg on 10-11-2023 Creatinine [Mass/Vol] 2.04 mg/dL High 0.60-1.20 [facility] Comment on above: Performed By: #### B MP #### [facility] [address] [place] [address] [place] Glucose [Mass/volume] in Ser um or PlasmaOrdered By: Fernando Chet on 10-11-2023 Glucose [Mass/Vol] 96 mg/dL Normal 70-100 [facility] Comment on above: ADA recommended refe rence rangeRandom Glucose Reference Range is dependent on time and content of last meal. Glucose of more than 200 mg/dL in a nonstressed, ambulatory subject supports the diagnosis of Diabetes Mellitus. Result Comment: [facility] Glucose Reference Range is dependent on time and content of last meal. Glucose of more than 200 mg/dL in a nonstressed, ambulatory subject supports the diagnosis of Diabetes Mellitus. ADA recommended reference range Performed By: #### B MP #### [address] No Panel InformationOrdered By: Fernando Rosenberg on 10-11-2023 Estimated GFR (CKD-EPI) 28.812 mL/Min [facility] Creatinine Clearance (Chem N/A [facility] Potassium [Moles/volume] in Serum or PlasmaOrdered By: Fernando Rosenberg on 10-11-2023 Potassium [Moles/Vol] 5.2 mmol/L High 3.5-5.1 [facility] Comment on above: Performed By: #### B MP #### [address] Serum or plasma anion gap de terminationOrdered By: Fernando Rosenberg on 10-11-2023 Anion gap [Moles/Vol] 11.5 mmol/L Normal 6.0-15.0 [facility] Comment on above: Performed By: #### B MP #### [address] Sodium [Moles/volume] in Ser um or PlasmaOrdered By: Fernando Rosenberg on 10-11-2023 Sodium [Moles/Vol] 140 mmol/L Normal 136-145 [facility] Comment on above: Performed By: #### B MP #### [address] Urea nitrogen [Mass/volume] in Serum or PlasmaOrdered By: Fernando Rosenberg on 10-11-2023 Urea nitrogen [Mass/Vol] 41 mg/dL High 7-25 [facility] Comment on above: Performed By: #### B MP #### [address] 36on 10-02-2023 36 Patient made aware. I told her to make sure to call Dr. Siddiqui's office of neurology. Normal [facility] Automated basophil %Ordered By: Fernando Rosenberg on 10-02-2023 Basophils/100 WBC (Bld) 0.8 % Normal . [facility] Comment on above: Performed By: #### A FRANCISCO, CUU #### [address] Automated basophil countOrde red By: Fernando Rosenberg on 10-02-2023 Basophils (Bld) [#/Vol] 0.0 10*3/uL Normal 0.0-0.2 [facility] Comment on above: Result Comment: PERF ORMED BY: [place] [address] PATHOLOGIST GASTROENTEROLOGY TEACHER ARIC BUTLER M.D. Performed By: #### A FRANCISCO, CUU #### [address] Automated blood monocyte cou ntOrdered By: Fernando Rosenberg on 10-02-2023 Monocytes (Bld) [#/Vol] 0.3 10*3/uL Normal 0.0-0.8 [facility] Comment on above: Performed By: #### A FRANCISCO, CUU #### [address] Automated eosinophil %Ordere d By: Fernando Rosenberg on 10-02-2023 Eosinophils/100 WBC (Bld) 3.4 % Normal . [facility] Comment on above: Performed By: #### A FRANCISCO, CUU #### [address] Automated eosinophil countOr dered By: Fernando Rosenberg on 10-02-2023 Eosinophils (Bld) [#/Vol] 0.2 10*3/uL Normal 0.0-0.45 [facility] Comment on above: Performed By: #### A FRANCISCO, CUU #### [address] Automated monocyte %Ordered By: Fernando Rosenberg on 10-02-2023 Monocytes/100 WBC (Bld) 6.4 % Normal . [facility] Comment on above: Performed By: #### A FRANCISCO, CUU #### [facility] [address] Automated neutrophil %Ordere d By: Fernando Rosenberg on 10-02-2023 Neutrophils/100 WBC (Bld) 46.2 % Normal . [facility] Comment on above: Performed By: #### A FRANCISCO, CUU #### [address] Basic Metabolic Panelon 09-14 Creatinine Clr Calc Pharmacy 60.65 Normal [facility] Comment on above: Result Comment: PERF ORMED BY: [place] [address] PATHOLOGIST GASTROENTEROLOGY TEACHER ARIC BUTLER M.D. Performed By: #### A FRANCISCO, CUU #### [address] GFR/1.73 sq M.predicted MDRD (S/P/Bld) [Vol rate/Area] 41.013 mL/min/{1.73_m2} Normal [facility] Comment on above: Performed By: #### A FRANCISCO, CUU #### [address] Calcium [Mass/volume] in Ser um or PlasmaOrdered By: Fernando Rosenberg on 10-02-2023 Calcium [Mass/Vol] 9.0 mg/dL Normal 8.6-10.3 [facility] Comment on above: Performed By: #### A FRANCISCO, CUU #### [address] Capillary blood glucose timmy urement by glucometer (mass/volume)Ordered By: Fernando Rosenberg on 10-02-2023 Glucose [Mass/Vol] 93 mg/dL Normal [facility] Comment on above: Random Glucose Refer ence Range is dependent on time and content of last meal. Glucose of more than 200 mg/dL in a nonstressed, ambulatory subject supports the diagnosis of Diabetes Mellitus. Result Comment: [facility] Glucose Reference Range is dependent on time and content of last meal. Glucose of more than 200 mg/dL in a nonstressed, ambulatory subject supports the diagnosis of Diabetes Mellitus. PERFORMED BY: [place] [address] PATHOLOGIST GASTROENTEROLOGY TEACHER ARIC BUTLER M.D. Performed By: #### V [id number], FE and TIBC, URIC, CMP, GEENA, MG, PHOS #### [address] Carbon dioxide, total [Moles /volume] in Serum or PlasmaOrdered By: Fernando Rosebnerg on 10-02-2023 CO2 [Moles/Vol] 26.9 mmol/L Normal 21.0-31.0 [facility] Comment on above: Performed By: #### A RAMESHUAGERMÁN, CUU #### [address] Chloride [Moles/volume] in S brunilda or PlasmaOrdered By: Fernando Rosenberg on 10-02-2023 Chloride [Moles/Vol] 110 mmol/L High 98-107 [facility] Comment on above: Performed By: #### A FRANCISCO CUU #### [address] Complete Blood Count Auto Di ffon 10-02-2023 Mean Corpuscular HGB Conc 33.2 g/dL Normal 32.0-35.0 [facility] Comment on above: Performed By: #### A FRANCISCO, CUU #### [address] NRBC% 0.0 /100{WBC} Normal 0-0.5 [facility] Comment on above: Performed By: #### A FRANCISCO, CUU #### [address] Creatinine [Mass/volume] in Serum or PlasmaOrdered By: Fernando Rosenberg on 10-02-2023 Creatinine [Mass/Vol] 1.52 mg/dL Significan t change up 0.60-1.20 [facility] Comment on above: Delta: 2.27 on 09/30-0758 Performed By: #### A FRANCISCO, CUU #### [address] Erythrocyte distribution wid th [Ratio] by Automated countOrdered By: Fernando Rosenberg on 10-02-2023 Erythrocyte distribution width (RBC) [Ratio] 14.3 % Normal 11.9-15.3 [facility] Comment on above: Performed By: #### A FRANCISCO, CUU #### [address] Erythrocytes [#/volume] in B lood by Automated countOrdered By: Fernando Rosenberg on 10-02-2023 RBC (Bld) [#/Vol] 3.47 10*6/uL Low 3.60-5.00 [facility] Comment on above: Performed By: #### A FRANCISCO, CUU #### [address] Glucose Poct Glucometerson 0 10-02-2023 Glucose [Mass/Vol] 87 mg/dL Normal [facility] Comment on above: Result Comment: [facility] Glucose Reference Range is dependent on time and content of last meal. Glucose of more than 200 mg/dL in a nonstressed, ambulatory subject supports the diagnosis of Diabetes Mellitus. PERFORMED BY: [place] [address] PATHOLOGIST GASTROENTEROLOGY TEACHER ARIC BUTLER M.D. Performed By: #### A FRANCISCO, CUU #### [place] [address] [place] Glucose [Mass/volume] in Ser um or PlasmaOrdered By: Fernando Rosenberg on 10-02-2023 Glucose [Mass/Vol] 85 mg/dL Normal 70-100 [facility] Comment on above: ADA recommended refe rence rangeRandom Glucose Reference Range is dependent on time and content of last meal. Glucose of more than 200 mg/dL in a nonstressed, ambulatory subject supports the diagnosis of Diabetes Mellitus. Result Comment: [facility] Glucose Reference Range is dependent on time and content of last meal. Glucose of more than 200 mg/dL in a nonstressed, ambulatory subject supports the diagnosis of Diabetes Mellitus. ADA recommended reference range Performed By: #### A RAMESHUAGERMÁN, CUU #### [facility] [address] [place] [address] Hematocrit [Volume Fraction] of Blood by Automated countOrdered By: Fernando Rosenberg on 10-02-2023 Hematocrit (Bld) [Volume fraction] 31.5 % Low 34.0-46.4 [facility] Comment on above: Performed By: #### A FRANCISCO, CUU #### [address] Hemoglobin [Mass/volume] in BloodOrdered By: Fernando Rosenberg on 10-02-2023 Hemoglobin (Bld) [Mass/Vol] 10.4 g/dL Low 11.8-15.4 [facility] Comment on above: Performed By: #### A FRANCISCO, CUU #### [address] Leukocytes [#/volume] correc joaquin for nucleated erythrocytes in Blood by Automated counOrdered By: Fernando Rosenberg on 10-02-2023 WBC corrected for nucl RBC Auto (Bld) [#/Vol] 4.8 10*3/uL 3.8-11.6 [facility] Leukocytes [#/volume] in Blo od by Automated countOrdered By: Fernando Rosenberg on 10-02-2023 WBC (Bld) [#/Vol] 4.8 10*3/uL Normal 3.8-11.6 [facility] Comment on above: Performed By: #### A FRANCISCO, CUU #### [address] Lymphocytes [#/volume] in Bl ood by Automated countOrdered By: Fernando Rosenberg on 10-02-2023 Lymphocytes (Bld) [#/Vol] 2.1 10*3/uL Normal 1.00-4.8 [facility] Comment on above: Performed By: #### A FRANCISCO, CUU #### [address] Lymphocytes/100 leukocytes i n Blood by Automated countOrdered By: Fernando Rosenberg on 10-02-2023 Lymphocytes/100 WBC (Bld) 43.2 % Normal . [facility] Comment on above: Performed By: #### A FRANCISCO, CUU #### [address] MCH [Entitic mass] by Automa joaquin countOrdered By: Fernando Rosenberg on 10-02-2023 MCH (RBC) [Entitic mass] 30.1 pg Normal 24.7-34.3 [facility] Comment on above: Performed By: #### A FRANCISCO, CUU #### [address] MCHC Auto (RBC) [Mass/Vol]Or dered By: Fernando Rosenberg on 10-02-2023 MCHC (RBC) [Mass/Vol] 33.2 g/dL 32.0-35.0 [facility] MCV [Entitic volume] by Auto mated countOrdered By: Fernando Rosenberg on 10-02-2023 MCV (RBC) [Entitic vol] 90.7 fL Normal 80-100 [facility] Comment on above: Performed By: #### A FRANCISCO, CUU #### [address] Neutrophils [#/volume] in Bl ood by Automated countOrdered By: Fernando Rosenberg on 10-02-2023 Neutrophils (Bld) [#/Vol] 2.2 10*3/uL Normal 1.8-7.7 [facility] Comment on above: Performed By: #### A FRANCISCO, CUU #### [address] No Panel InformationOrdered By: Fernando Rosenberg on 10-02-2023 Estimated GFR (CKD-EPI) 41.013 mL/Min [facility] Creatinine Clearance (Chem 60.65 [facility] Nucleated erythrocytes [Pres ence] in Blood by Automated countOrdered By: Fernando Rosenberg on 10-02-2023 Nucleated RBC Auto Ql (Bld) 0.0 /100{WBC} 0-0.5 [facility] Platelet mean volume [Entiti c volume] in Blood by Automated countOrdered By: Fernando Rosenberg on 10-02-2023 Platelet mean volume (Bld) [Entitic vol] 9.2 fL Normal 6.3-10.7 [facility] Comment on above: Performed By: #### A FRANCISCO, CUU #### [facility] [address] [place] [address] Platelets [#/volume] in Bloo d by Automated countOrdered By: Fernando Rosenberg on 10-02-2023 Platelets (Bld) [#/Vol] 230 10*3/uL Normal 150-450 [facility] Comment on above: Performed By: #### A FRANCISCO, CUU #### [facility] [address] [place] [address] [place] Potassium [Moles/volume] in Serum or PlasmaOrdered By: Fernando Rosenberg on 10-02-2023 Potassium [Moles/Vol] 4.5 mmol/L Normal 3.5-5.1 [facility] Comment on above: Performed By: #### A FRANCISCO, CUU #### [facility] [address] [place] [address] Serum or plasma anion gap de terminationOrdered By: Fernando Rosenberg on 10-02-2023 Anion gap [Moles/Vol] 9.6 mmol/L Normal 6.0-15.0 [facility] Comment on above: Performed By: #### A FRANCISCO, CUU #### [facility] [address] [place] [address] [place] Sodium [Moles/volume] in Ser um or PlasmaOrdered By: Fernando Rosenberg on 10-02-2023 Sodium [Moles/Vol] 142 mmol/L Normal 136-145 [facility] Comment on above: Performed By: #### A FRANCISCO, CUU #### [facility] [address] Urea nitrogen [Mass/volume] in Serum or PlasmaOrdered By: Fernando Rosenberg on 10-02-2023 Urea nitrogen [Mass/Vol] 34 mg/dL High 7-25 [facility] Comment on above: Performed By: #### A FRANCISCO, CUU #### [facility] [address] Activated partial thrombopla stin time (aPTT) in platelet poor plasma by coagulation aOrdered By: Alma Deng on 10-01-2023 aPTT Coag (PPP) [Time] 30.1 s 25.1-36.5 [facility] Comment on above: A hematocrit value g reater than 55% may lead to inaccurate results in coagulation testing. Patients having hematocrit values >55% require a special collection tube for coagulation studies. Please contact the laboratory at [phone] for redraw instructions. Alanine aminotransferase [En zymatic activity/volume] in Serum or PlasmaOrdered By: Alma Deng on 10-01-2023 ALT [Catalytic activity/Vol] 19 U/L Normal 7-52 [facility] Comment on above: Order Comment: SPECI MEN GROSSLY HEMOLYZED. NOTIFIED IRIS Performed By: #### A FRANCISCO, CUU #### [facility] [address] [place] [id number] [place] Albumin [Mass/volume] in Ser um or Plasma by Bromocresol green (BCG) dye binding methoOrdered By: Alma Deng on 10-01-2023 Albumin BCG dye [Mass/Vol] 3.9 g/dL 3.5-5.7 [facility] Alkaline phosphatase [Enzyma tic activity/volume] in Serum or PlasmaOrdered By: Alma Deng on 10-01-2023 ALP [Catalytic activity/Vol] 56 U/L Normal 34-104 [facility] Comment on above: Order Comment: SPECI MEN GROSSLY HEMOLYZED. NOTIFIED IRSI Performed By: #### A FRANCISCO, CUU #### [facility] [address] [place] [address] [place] Aspartate aminotransferase [ Enzymatic activity/volume] in Serum or PlasmaOrdered By: Alma Deng on 10-01-2023 AST [Catalytic activity/Vol] 29 U/L Normal 13-39 [facility] Comment on above: Order Comment: SPECI MEN GROSSLY HEMOLYZED. NOTIFIED IRIS Performed By: #### A FRANCISCO, CUU #### [facility] [address] [place] [address] [place] Bacteria [Presence] in Urine by AutomatedOrdered By: Alma Deng on 10-01-2023 Bacteria Auto Ql (U) None seen [HPF] None Seen [facility] Bilirubin Test strip Ql (U)O rdered By: Alma Deng on 10-01-2023 Bilirubin Ql (U) Negative Negative [facility] Bilirubin.total [Mass/volume ] in Serum or PlasmaOrdered By: Alma Deng on 10-01-2023 Bilirubin [Mass/Vol] 0.3 mg/dL Normal 0.3-1.0 [facility] Comment on above: Order Comment: SPECI MEN GROSSLY HEMOLYZED. NOTIFIED IRIS Performed By: #### A FRANCISCO, CUU #### [facility] [address] [place] [address] [place] Color of Urine by AutoOrdere d By: Alma Deng on 10-01-2023 Color (U) Colorless Normal Yellow [facility] Comment on above: Order Comment: Reaso n for Exam Chronic kidney disease, stage 3b;Hypertensive nephropathy;Di Performed By: #### V [id number], FE and TIBC, URIC, CMP, GENEA, MG, PHOS #### [facility] [address] [place] [id number] [place] Comprehensive Metabolic Pane pillo 10-01-2023 Albumin [Mass/Vol] 3.9 g/dL Normal 3.5-5.7 [facility] Comment on above: Order Comment: SPECI MEN GROSSLY HEMOLYZED. NOTIFIED IRIS Performed By: #### A DDONUAPLUS, CUU #### [facility] [address] Anion gap [Moles/Vol] 10.8 mmol/L Normal 6.0-15.0 [facility] Comment on above: Order Comment: SPECI MEN GROSSLY HEMOLYZED. NOTIFIED IRIS Performed By: #### A DDONUAPLUS, CUU #### [address] Calcium [Mass/Vol] 8.8 mg/dL Normal 8.6-10.3 [facility] Comment on above: Order Comment: SPECI MEN GROSSLY HEMOLYZED. NOTIFIED IRIS Performed By: #### A DDONUAPLUS, CUU #### [address] Chloride [Moles/Vol] 110 mmol/L High 98-107 [facility] Comment on above: Order Comment: SPECI MEN GROSSLY HEMOLYZED. NOTIFIED IRIS Performed By: #### A DDONUAPLUS, CUU #### [place] [address] [place] CO2 [Moles/Vol] 24.1 mmol/L Normal 21.0-31.0 [facility] Comment on above: Order Comment: SPECI MEN GROSSLY HEMOLYZED. NOTIFIED IRIS Performed By: #### A DDONUAPLUS, CUU #### [facility] [address] [place] [address] [place] Creatinine [Mass/Vol] 2.27 mg/dL High 0.60-1.20 [facility] Comment on above: Order Comment: SPECI MEN GROSSLY HEMOLYZED. NOTIFIED IRIS Performed By: #### A DDONUAPLUS, CUU #### [place] [address] [place] Creatinine Clr Calc Pharmacy 40.81 Normal [facility] Comment on above: Order Comment: SPECI MEN GROSSLY HEMOLYZED. NOTIFIED IRIS Result Comment: PERF ORMED BY: [address] [address] PATHOLOGIST GASTROENTEROLOGY TEACHER ARIC BUTLER M.D. Performed By: #### A DDONUAPLUS, CUU #### [facility] [address] [place] [address] [place] GFR/1.73 sq M.predicted MDRD (S/P/Bld) [Vol rate/Area] 25.346 mL/min/{1.73_m2} Normal [facility] Comment on above: Order Comment: SPECI MEN GROSSLY HEMOLYZED. NOTIFIED IRIS Performed By: #### A DDONUAPLUS, CUU #### [facility] [address] [place] [address] [place] Glucose [Mass/Vol] 120 mg/dL High 70-100 [facility] Comment on above: Order Comment: SPECI MEN GROSSLY HEMOLYZED. NOTIFIED IRIS Result Comment: [facility] Glucose Reference Range is dependent on time and content of last meal. Glucose of more than 200 mg/dL in a nonstressed, ambulatory subject supports the diagnosis of Diabetes Mellitus. ADA recommended reference range Performed By: #### A DDONUAPLUS, CUU #### [place] [address] [place] Potassium [Moles/Vol] 3.9 mmol/L Normal 3.5-5.1 [facility] Comment on above: Order Comment: SPECI MEN GROSSLY HEMOLYZED. NOTIFIED IRIS Performed By: #### A DDONUAPLUS, CUU #### [place] [address] [place] Sodium [Moles/Vol] 141 mmol/L Normal 136-145 [facility] Comment on above: Order Comment: SPECI MEN GROSSLY HEMOLYZED. NOTIFIED IRIS Performed By: #### A DDONUAPLUS, CUU #### [facility] [address] [place] [address] [place] Urea nitrogen [Mass/Vol] 43 mg/dL High 7-25 [facility] Comment on above: Order Comment: SPECI MEN GROSSLY HEMOLYZED. NOTIFIED IRIS Performed By: #### A DDONUAPLUS, CUU #### [address] Creatinine [Mass/volume] in UrineOrdered By: Alma Deng on 10-01-2023 Creatinine (U) [Mass/Vol] 65.00 mg/dL [facility] Comment on above: No reference range e stablished Creatinine, Urine (Random)on 10-01-2023 Creatinine, Urine (Random) 65.00 mg/dL Normal [facility] Comment on above: Result Comment: No r eference range established PERFORMED BY: [place] [address] PATHOLOGIST GASTROENTEROLOGY TEACHER ARIC BUTLER M.D. Performed By: #### P TH #### [address] Dipstick and Microscopicon 0 10-01-2023 Bacteria,Urine None Seen Normal None Seen [facility] Comment on above: Order Comment: Reaso n for Exam Chronic kidney disease, stage 3b;Hypertensive nephropathy;Di Performed By: #### V [id number], FE and TIBC, URIC, CMP, GEENA, MG, PHOS #### [address] Bilirubin,Urine Negative Normal Negative [facility] Comment on above: Order Comment: Reaso n for Exam Chronic kidney disease, stage 3b;Hypertensive nephropathy;Di Performed By: #### V [id number], FE and TIBC, URIC, CMP, GEENA, MG, PHOS #### [address] Glucose Ql (U) Normal Normal Normal [facility] Comment on above: Order Comment: Reaso n for Exam Chronic kidney disease, stage 3b;Hypertensive nephropathy;Di Performed By: #### V [id number], FE and TIBC, URIC, CMP, GEENA, MG, PHOS #### [address] Hyaline Casts,Urine 0-8 Normal 0-8 [facility] Comment on above: Order Comment: Reaso n for Exam Chronic kidney disease, stage 3b;Hypertensive nephropathy;Di Performed By: #### V [id number], FE and TIBC, URIC, CMP, GEENA, MG, PHOS #### [address] Mucus,Urine Rare Normal [facility] Comment on above: Order Comment: Reaso n for Exam Chronic kidney disease, stage 3b;Hypertensive nephropathy;Di Result Comment: PERF ORMED BY: [place] [address] PATHOLOGIST GASTROENTEROLOGY TEACHER ARIC BUTLER M.D. Performed By: #### V [id number], FE and TIBC, URIC, CMP, GEENA, MG, PHOS #### [address] Nitrite,Urine Negative Normal Negative [facility] Comment on above: Order Comment: Reaso n for Exam Chronic kidney disease, stage 3b;Hypertensive nephropathy;Di Performed By: #### V [id number], FE and TIBC, URIC, CMP, GEENA, MG, PHOS #### [address] Occult Blood,Urine Negative Normal Negative [facility] Comment on above: Order Comment: Reaso n for Exam Chronic kidney disease, stage 3b;Hypertensive nephropathy;Di Result Comment: PERF ORMED BY: [place] [address] PATHOLOGIST GASTROENTEROLOGY TEACHER ARIC BUTLER M.D. Performed By: #### V [id number], FE and TIBC, URIC, CMP, GEENA, MG, PHOS #### [address] Protein,Urine Negative Normal Negative [facility] Comment on above: Order Comment: Reaso n for Exam Chronic kidney disease, stage 3b;Hypertensive nephropathy;Di Performed By: #### V [id number], FE and TIBC, URIC, CMP, GEENA, MG, PHOS #### [address] RBC,Urine None Seen Normal 0-4 [facility] Comment on above: Order Comment: Reaso n for Exam Chronic kidney disease, stage 3b;Hypertensive nephropathy;Di Performed By: #### V [id number], FE and TIBC, URIC, CMP, GEENA, MG, PHOS #### [address] Specificy [place],Urine 1.009 Normal 1.001-1.030 [facility] Comment on above: Order Comment: Reaso n for Exam Chronic kidney disease, stage 3b;Hypertensive nephropathy;Di Performed By: #### V [id number], FE and TIBC, URIC, CMP, GEENA, MG, PHOS #### [address] Urobilinogen,Urine Normal Normal Normal [facility] Comment on above: Order Comment: Reaso n for Exam Chronic kidney disease, stage 3b;Hypertensive nephropathy;Di Performed By: #### V [id number], FE and TIBC, URIC, CMP, GEENA, MG, PHOS #### [address] WBC,Urine 3-4 Normal 0-4 [facility] Comment on above: Order Comment: Reaso n for Exam Chronic kidney disease, stage 3b;Hypertensive nephropathy;Di Performed By: #### V [id number], FE and TIBC, URIC, CMP, GEENA, MG, PHOS #### [address] Eosinophil,Urineon 4 Eosinophil,Urine 0 % Normal 0-1 [facility] Comment on above: Result Comment: PERF ORMED BY: [place] [address] PATHOLOGIST GASTROENTEROLOGY TEACHER ARIC BUTLER M.D. Performed By: #### P TH #### [address] Eosinophils detection in uri ne sediment by Nava stainOrdered By: Alma Deng on 10-01-2023 Eosinophils Nava stain Ql (Urine sed) 0 % 0-1 [facility] Epithelial cells.squamous [# /area] in Urine sediment by Automated countOrdered By: Alma Deng on 10-01-2023 Epithelial cells.squamous Auto (Urine sed) [#/Area] N/A [facility] Erythrocytes [#/area] in Uri ne sediment by Automated countOrdered By: Alma Huyuche on 10-01-2023 RBC Auto (Urine sed) [#/Area] None seen [HPF] 0-4 [facility] Glucose Poct Glucometerson 0 10-01-2023 Commemt1 Glu2: Cleaned Meter Normal [facility] Comment on above: Result Comment: PERF ORMED BY: [place] [address] PATHOLOGIST GASTROENTEROLOGY TEACHER ARIC BUTLER M.D. Performed By: #### A DDONUAPLUS, CUU #### [place] [address] [place] Glucose [Mass/Vol] 81 mg/dL Normal [facility] Comment on above: Result Comment: [facility] Glucose Reference Range is dependent on time and content of last meal. Glucose of more than 200 mg/dL in a nonstressed, ambulatory subject supports the diagnosis of Diabetes Mellitus. Performed By: #### A DDONUAPLUS, CUU #### [place] [id number] [facility] Glucose [Mass/Vol] 83 mg/dL Normal [facility] Comment on above: Result Comment: [facility] Glucose Reference Range is dependent on time and content of last meal. Glucose of more than 200 mg/dL in a nonstressed, ambulatory subject supports the diagnosis of Diabetes Mellitus. PERFORMED BY: [place] [address] PATHOLOGIST GASTROENTEROLOGY TEACHER ARIC BUTLER M.D. Performed By: #### V [id number], FE and TIBC, URIC, CMP, GEENA, MG, PHOS #### [address] [address] [place] Glucose [Mass/Vol] 117 mg/dL Normal [facility] Comment on above: Result Comment: [facility] Glucose Reference Range is dependent on time and content of last meal. Glucose of more than 200 mg/dL in a nonstressed, ambulatory subject supports the diagnosis of Diabetes Mellitus. PERFORMED BY: [place] [id number] PATHOLOGIST GASTROENTEROLOGY TEACHER ARIC BUTLER M.D. Performed By: #### P TH #### [address] Glucose [Mass/Vol] 83 mg/dL Normal [facility] Comment on above: Result Comment: [facility] Glucose Reference Range is dependent on time and content of last meal. Glucose of more than 200 mg/dL in a nonstressed, ambulatory subject supports the diagnosis of Diabetes Mellitus. PERFORMED BY: [place] [address] PATHOLOGIST GASTROENTEROLOGY TEACHER ARIC BUTLER M.D. Performed By: #### V [id number], FE and TIBC, URIC, CMP, GEENA, MG, PHOS #### [address] Glucose [Mass/volume] in Uri ne by Test stripOrdered By: Alma Deng on 10-01-2023 Glucose Test strip (U) [Mass/Vol] Normal mg/dL Normal [facility] Hemoglobin Test strip Ql (U) Ordered By: Alma Deng on 10-01-2023 Hemoglobin Ql (U) Negative Negative [facility] Hemogram CBC Without Diffon 10-01-2023 Erythrocyte distribution width (RBC) [Ratio] 14.7 % Normal 11.9-15.3 [facility] Comment on above: Performed By: #### A DDONUAPLUS, CUU #### [address] Hematocrit (Bld) [Volume fraction] 32.9 % Low 34.0-46.4 [facility] Comment on above: Performed By: #### A DDONUAPLUS, CUU #### [address] Hemoglobin (Bld) [Mass/Vol] 11.0 g/dL Low 11.8-15.4 [facility] Comment on above: Performed By: #### A DDONUAPLUS, CUU #### [address] MCH (RBC) [Entitic mass] 30.1 pg Normal 24.7-34.3 [facility] Comment on above: Performed By: #### A FRANCISCO, CUU #### [address] MCV (RBC) [Entitic vol] 89.6 fL Normal 80-100 [facility] Comment on above: Performed By: #### A FRANCISCO, CUU #### [address] Mean Corpuscular HGB Conc 33.6 g/dL Normal 32.0-35.0 [facility] Comment on above: Performed By: #### A RAMESHUAGERMÁN CUU #### [address] Platelet mean volume (Bld) [Entitic vol] 10.5 fL Normal 6.3-10.7 [facility] Comment on above: Result Comment: PERF ORMED BY: [place] [address] PATHOLOGIST GASTROENTEROLOGY TEACHER ARIC BUTLER M.D. Performed By: #### A FRANCISCO CUU #### [address] Platelets (Bld) [#/Vol] 320 10*3/uL Normal 150-450 [facility] Comment on above: Performed By: #### A FRANCISCO CUU #### [address] RBC (Bld) [#/Vol] 3.67 10*6/uL Normal 3.60-5.00 [facility] Comment on above: Performed By: #### A FRANCISCO, CUU #### [address] WBC (Bld) [#/Vol] 5.0 10*3/uL Normal 3.8-11.6 [facility] Comment on above: Performed By: #### A FRANCISCO, CUU #### [place] [id number] [place] Hyaline casts [#/area] in Ur ine sediment by Automated countOrdered By: Alma Deng on 10-01-2023 Hyaline casts Auto (Urine sed) [#/Area] 0-8 [LPF] 0-8 [facility] INR in Platelet poor plasma by Coagulation assayOrdered By: Alma Deng on 10-01-2023 INR Coag (PPP) [Relative time] 1.1 {INR} Normal [facility] Comment on above: INR Therapeutic Rang e [...] heart valves: 3 - 4.5 Order Comment: Reaso n for Exam Chronic kidney disease, stage 3b;Hypertensive nephropathy;Di Name Collection Type:: Clean-Voided Midstream Result Comment: INR Therapeutic Range A) Pre- [...] 3 - 4.5 Performed By: #### A DDONUAPLUS, CUU #### [facility] [address] [place] [address] [place] Ketones [Presence] in Urine by Test stripOrdered By: Alma Deng on 10-01-2023 Ketones Ql (U) Negative Normal Negative [facility] Comment on above: Order Comment: Reaso n for Exam Chronic kidney disease, stage 3b;Hypertensive nephropathy;Di Performed By: #### V [id number], FE and TIBC, URIC, CMP, GEENA, MG, PHOS #### [facility] [address] [place] [address] [place] Leukocyte esterase [Presence ] in Urine by Test stripOrdered By: Alma Deng on 10-01-2023 Leukocyte esterase Test strip Ql (U) 1+ High Negative [facility] Comment on above: Order Comment: Reaso n for Exam Chronic kidney disease, stage 3b;Hypertensive nephropathy;Di Performed By: #### V [id number], FE and TIBC, URIC, CMP, GEENA, MG, PHOS #### [facility] [address] [place] [address] Leukocytes [#/area] in Urine sediment by Automated countOrdered By: Alma Deng on 10-01-2023 WBC Auto (Urine sed) [#/Area] 3-4 [HPF] 0-4 [facility] Mucus [Presence] in Urine by AutomatedOrdered By: Alma Deng on 10-01-2023 Mucus Auto Ql (U) Rare [LPF] [facility] Nitrite Test strip Ql (U)Ord ered By: Alma Deng on 10-01-2023 Nitrite Ql (U) Negative Negative [facility] No Panel InformationOrdered By: Fernando Rosenberg on 10-01-2023 Bedside Glucose Comment Glu2: cleaned meter [facility] Partial Thromboplastin Timeo n 10-01-2023 aPTT Coag (Bld) [Time] 30.1 s Normal 25.1-36.5 Th [facility] Comment on above: Order Comment: Breo n for Exam Chronic kidney disease, stage 3b;Hypertensive nephropathy;Di Name Collection Type:: Clean-Voided Midstream Result Comment: A he matocrit value greater than 55% may lead to inaccurate results in coagulation testing. Patients having hematocrit values >55% require a special collection tube for coagulation studies. Please contact the laboratory at [phone] for redraw instructions. PERFORMED BY: [place] [address] PATHOLOGIST GASTROENTEROLOGY TEACHER ARIC BUTLER M.D. Performed By: #### A DDONUAPLUS, CUU #### [place] [id number] [facility] Protein Test strip (U) [Mass /Vol]Ordered By: Alma Deng on 10-01-2023 Protein (U) [Mass/Vol] Negative Negative [facility] Protein [Mass/volume] in Ser um or PlasmaOrdered By: Alma Deng on 10-01-2023 Protein [Mass/Vol] 6.1 g/dL Low 6.4-8.9 [facility] Comment on above: Order Comment: SPECI MEN GROSSLY HEMOLYZED. NOTIFIED IRIS Performed By: #### A DDONUAPLUS, CUU #### [facility] [address] Prothrombin time (PT)Ordered By: Alma Deng on 10-01-2023 PT Coag (PPP) [Time] 12.2 s Normal 9.0-12.9 [facility] Comment on above: A hematocrit value g reater than 55% may lead to inaccurate results in coagulation testing. Patients having hematocrit values >55% require a special collection tube for coagulation studies. Please contact the laboratory at [phone] for redraw instructions. Order Comment: Reaso n for Exam Chronic kidney disease, stage 3b;Hypertensive nephropathy;Di Name Collection Type:: Clean-Voided Midstream Result Comment: A he matocrit value greater than 55% may lead to inaccurate results in coagulation testing. Patients having hematocrit values >55% require a special collection tube for coagulation studies. Please contact the laboratory at [phone] for redraw instructions. Performed By: #### A DDONUAPLUS, CUU #### [facility] [address] [place] [id number] [facility] Serum globulin measurement b y calculation (mass/volume)Ordered By: Alma Deng on 10-01-2023 Globulin (S) [Mass/Vol] 2.2 g/dL Normal [facility] Comment on above: Order Comment: SPECI MEN GROSSLY HEMOLYZED. NOTIFIED IRIS Performed By: #### A DDONUAPLUS, CUU #### [facility] [address] [place] [id number] [facility] Serum or plasma albumin/glob ulin mass ratioOrdered By: Alma Deng on 10-01-2023 Albumin/Globulin [Mass ratio] 1.8 {ratio} [facility] Comment on above: Order Comment: SPECI MEN GROSSLY HEMOLYZED. NOTIFIED IRSI Performed By: #### A DDONUAPLUS, CUU #### [facility] [address] Sodium [Moles/volume] in Uri neOrdered By: Alma Deng on 10-01-2023 Sodium (U) [Moles/Vol] 54.0 mmol/L Normal [facility] Comment on above: No reference range e stablished Result Comment: No r eference range established Performed By: #### P TH #### [facility] [address] Specific gravity Test strip (U) [Rel density]Ordered By: Alma Deng on 10-01-2023 Specific gravity (U) [Rel density] 1.009 1.001-1.030 [facility] Urine appearanceOrdered By: Alma Deng on 10-01-2023 Appearance (U) Clear Normal Clear [facility] Comment on above: Order Comment: Reaso n for Exam Chronic kidney disease, stage 3b;Hypertensive nephropathy;Di Performed By: #### V [id number], FE and TIBC, URIC, CMP, GEENA, MG, PHOS #### [facility] [address] Urobilinogen Test strip (U) [Mass/Vol]Ordered By: Alma Barrazabonnie on 10-01-2023 Urobilinogen (U) [Mass/Vol] Normal mg/dL Normal [facility] pH of Urine by Test stripOrd ered By: Alma Barrazabonnie on 10-01-2023 pH (U) 5.5 [pH] Normal 5.0-9.0 [facility] Comment on above: Order Comment: Reaso n for Exam Chronic kidney disease, stage 3b;Hypertensive nephropathy;Di Performed By: #### V [id number], FE and TIBC, URIC, CMP, GEENA, MG, PHOS #### [facility] [address] 36on 09-20-2023 36 Patient's insurance denied a carotid duplex again. Is there anything else you'd like me to do? :( Normal [facility] Office Visiton 09-11-2023 Follow-up visit [id number] [place] Amanda 1970 F Date Provider Department Center 09/11/2023 Pranay-TK GODOY SEYMOUR [place] No family history on file Level of Service:48114 [place] OFFICE/OUTPATIENT ESTABLISHED MOD MDM 30 MIN Normal [facility] Albumin [Mass/volume] in Ser um or Plasma by Bromocresol green (BCG) dye binding methoOrdered By: Halle Mac on 08-10-2023 Albumin BCG dye [Mass/Vol] 4.0 g/dL 3.5-5.7 [facility] Automated erythrocytes count in urine sediment (number/area)Ordered By: Halle Mac on 08-10-2023 RBC Auto (Urine sed) [#/Area] None seen [HPF] 0-4 [facility] Automated leukocytes count i n urine sediment (number/area)Ordered By: Halle Mac on 08-10-2023 WBC Auto (Urine sed) [#/Area] 3-4 [HPF] 0-4 [facility] Automated urine color determ inationOrdered By: Halle Mac on 08-10-2023 Color (U) Yellow Normal Yellow [facility] Comment on above: Order Comment: Bharti peña for Exam Chronic kidney disease, stage 3b;Hypertensive nephropathy;Di Performed By: #### P TH #### [facility] [address] Bilirubin Test strip Ql (U)O rdered By: Halle Mac on 08-10-2023 Bilirubin Ql (U) Negative Negative [facility] Calcium [Mass/volume] in Ser um or PlasmaOrdered By: Halle Mac on 08-10-2023 Calcium [Mass/Vol] 9.3 mg/dL Normal 8.6-10.3 [facility] Comment on above: Performed By: #### A DDONUAGERMÁN, CUU #### [facility] [address] Carbon dioxide, total [Moles /volume] in Serum or PlasmaOrdered By: Halle Mac on 08-10-2023 CO2 [Moles/Vol] 24.8 mmol/L Normal 21.0-31.0 [facility] Comment on above: Performed By: #### A FRANCISCO, CUU #### [facility] [address] [place] [address] [place] Chloride [Moles/volume] in S brunilda or PlasmaOrdered By: Halle Mac on 08-10-2023 Chloride [Moles/Vol] 110 mmol/L High 98-107 [facility] Comment on above: Performed By: #### A FRANCISCO, CUU #### [facility] [address] Creatinine [Mass/volume] in Serum or PlasmaOrdered By: Halle Mac on 08-10-2023 Creatinine [Mass/Vol] 1.59 mg/dL High 0.60-1.20 [facility] Comment on above: Performed By: #### A FRANCISCO, CUU #### [place] [address] [place] Creatinine [Mass/volume] in UrineOrdered By: Halle Mac on 08-10-2023 Creatinine (U) [Mass/Vol] 92.0 mg/dL [facility] Comment on above: No reference range e stablished Dipstick and Microscopicon 0 08-10-2023 Appearance (U) Clear Normal Clear [facility] Comment on above: Order Comment: Reaso n for Exam Chronic kidney disease, stage 3b;Hypertensive nephropathy;Di Performed By: #### P TH #### [place] [address] [place] Bacteria,Urine None Seen Normal None Seen [facility] Comment on above: Order Comment: Reaso n for Exam Chronic kidney disease, stage 3b;Hypertensive nephropathy;Di Performed By: #### P TH #### [place] [address] [place] Bilirubin,Urine Negative Normal Negative [facility] Comment on above: Order Comment: Reaso n for Exam Chronic kidney disease, stage 3b;Hypertensive nephropathy;Di Performed By: #### P TH #### [address] [place] [address] [place] Glucose Ql (U) Normal Normal Normal [facility] Comment on above: Order Comment: Reaso n for Exam Chronic kidney disease, stage 3b;Hypertensive nephropathy;Di Performed By: #### P TH #### [facility] [address] [place] [address] [facility] Hyaline Casts,Urine None Seen Normal 0-8 [facility] Comment on above: Order Comment: Reaso n for Exam Chronic kidney disease, stage 3b;Hypertensive nephropathy;Di Result Comment: PERF ORMED BY: [place] [address] PATHOLOGIST GASTROENTEROLOGY TEACHER ARIC BUTLER M.D. Performed By: #### P TH #### [place] [id number] [facility] Ketones Ql (U) Negative Normal Negative [facility] Comment on above: Order Comment: Reaso n for Exam Chronic kidney disease, stage 3b;Hypertensive nephropathy;Di Performed By: #### P TH #### [facility] [address] [place] [address] [place] Leukocyte esterase Test strip Ql (U) 2+ High Negative [facility] Comment on above: Order Comment: Reaso n for Exam Chronic kidney disease, stage 3b;Hypertensive nephropathy;Di Performed By: #### P TH #### [address] [address] [place] Nitrite,Urine Negative Normal Negative [facility] Comment on above: Order Comment: Reaso n for Exam Chronic kidney disease, stage 3b;Hypertensive nephropathy;Di Performed By: #### P TH #### [address] [address] [place] Occult Blood,Urine Negative Normal Negative [facility] Comment on above: Order Comment: Reaso n for Exam Chronic kidney disease, stage 3b;Hypertensive nephropathy;Di Result Comment: PERF ORMED BY: [place] [address] PATHOLOGIST GASTROENTEROLOGY TEACHER ARIC BUTLER M.D. Performed By: #### P TH #### [address] [address] [place] Protein,Urine Negative Normal Negative [facility] Comment on above: Order Comment: Reaso n for Exam Chronic kidney disease, stage 3b;Hypertensive nephropathy;Di Performed By: #### P TH #### [address] RBC,Urine None Seen Normal 0-4 [facility] Comment on above: Order Comment: Reaso n for Exam Chronic kidney disease, stage 3b;Hypertensive nephropathy;Di Performed By: #### P TH #### [address] Specificy [place],Urine 1.015 Normal 1.001-1.030 [facility] Comment on above: Order Comment: Reaso n for Exam Chronic kidney disease, stage 3b;Hypertensive nephropathy;Di Performed By: #### P TH #### [address] Squamous Epithelial Cell,Urine None Seen Normal 0-2 [facility] Comment on above: Order Comment: Reaso n for Exam Chronic kidney disease, stage 3b;Hypertensive nephropathy;Di Performed By: #### P TH #### [address] Urobilinogen,Urine Normal Normal Normal [facility] Comment on above: Order Comment: Reaso n for Exam Chronic kidney disease, stage 3b;Hypertensive nephropathy;Di Performed By: #### P TH #### [address] WBC,Urine 3-4 Normal 0-4 [facility] Comment on above: Order Comment: Reaso n for Exam Chronic kidney disease, stage 3b;Hypertensive nephropathy;Di Performed By: #### P TH #### [address] Erythrocyte distribution wid th [Ratio] by Automated countOrdered By: Halle Mac on 08-10-2023 Erythrocyte distribution width (RBC) [Ratio] 15.1 % Normal 11.9-15.3 [facility] Comment on above: Performed By: #### A ALVA SINGHU #### [address] Erythrocytes [#/volume] in B lood by Automated countOrdered By: Halle Mac on 08-10-2023 RBC (Bld) [#/Vol] 3.89 10*6/uL Normal 3.60-5.00 [facility] Comment on above: Performed By: #### A DDONUAPLUS, CUU #### [facility] [address] Ferritin [Mass/volume] in Se rum or PlasmaOrdered By: Halle Mac on 08-10-2023 Ferritin [Mass/Vol] 62.9 ng/mL Normal 11.0-306.8 [facility] Comment on above: Performed By: #### P TH #### [address] Folate [Mass/volume] in Seru m or PlasmaOrdered By: Halle Mac on 08-10-2023 Folate [Mass/Vol] 15.7 ng/mL >5.9 [facility] Comment on above: Folate reference ran ge: >5.9 ng/mlThe WHO technical consultation on folate and vitamin [id number] has determined that folate concentrations lessthan 4 ng/ml are considered deficient. Glucose [Mass/volume] in Ser um or PlasmaOrdered By: Halle Mac on 08-10-2023 Glucose [Mass/Vol] 94 mg/dL Normal 70-100 [facility] Comment on above: ADA recommended refe rence rangeRandom Glucose Reference Range is dependent on time and content of last meal. Glucose of more than 200 mg/dL in a nonstressed, ambulatory subject supports the diagnosis of Diabetes Mellitus. Result Comment: [place] [facility] Glucose Reference Range is dependent on time and content of last meal. Glucose of more than 200 mg/dL in a nonstressed, ambulatory subject supports the diagnosis of Diabetes Mellitus. ADA recommended reference range Performed By: #### A DDONUAPLUS, CUU #### [address] Hematocrit [Volume Fraction] of Blood by Automated countOrdered By: Halle Mac on 08-10-2023 Hematocrit (Bld) [Volume fraction] 35.0 % Normal 34.0-46.4 [facility] Comment on above: Performed By: #### A FRANCISCO CUU #### [address] Hemoglobin [Mass/volume] in BloodOrdered By: Halle Mac on 08-10-2023 Hemoglobin (Bld) [Mass/Vol] 11.5 g/dL Low 11.8-15.4 [facility] Comment on above: Performed By: #### A DDONUAPLUS, CUU #### [address] Hemogram CBC Without Diffon 08-10-2023 Mean Corpuscular HGB Conc 32.9 g/dL Normal 32.0-35.0 [facility] Comment on above: Performed By: #### A RAMESHUAGERMÁN CUU #### [address] WBC (Bld) [#/Vol] 4.0 10*3/uL Normal 3.8-11.6 [facility] Comment on above: Performed By: #### A FRANCISCO CUU #### [address] Iron [Mass/volume] in Serum or PlasmaOrdered By: Halle Mac on 08-10-2023 Iron [Mass/Vol] 75 ug/dL Normal 50-212 [facility] Comment on above: Performed By: #### A DDONUAPLUS, CUU #### [address] Iron and TIBC Profileon 07-16 % Iron Saturation 15.6 % Low 20-50 [facility] Comment on above: Performed By: #### A DDONUAPLUS, CUU #### [address] Total Iron Binding Capacity 480 ug/dL High 255-450 [facility] Comment on above: Performed By: #### A DDONUAPLUS, CUU #### [address] [place] [address] [place] Iron binding capacity [Mass/ volume] in Serum or PlasmaOrdered By: Halle Mac on 08-10-2023 Iron binding capacity [Mass/Vol] 480 ug/dL High 255-450 [facility] Iron saturation [Mass Fracti on] in Serum or PlasmaOrdered By: Halle Mac on 08-10-2023 Iron saturation [Mass fraction] 15.6 % Low 20-50 [facility] Ketones Auto test strip (U) [Mass/Vol]Ordered By: Halle Mac on 08-10-2023 Ketones (U) [Mass/Vol] Negative Negative [facility] - UrinalysisOrder ed By: Halle Mac on 08-10-2023 Hyaline casts LM Ql (Urine sed) None seen [LPF] 0-8 [facility] Leukocytes [#/volume] correc joaquin for nucleated erythrocytes in Blood by Automated counOrdered By: Halle Mac on 08-10-2023 WBC corrected for nucl RBC Auto (Bld) [#/Vol] 4.0 10*3/uL 3.8-11.6 [facility] MCH [Entitic mass] by Automa joaquin countOrdered By: Halle Mac on 08-10-2023 MCH (RBC) [Entitic mass] 29.6 pg Normal 24.7-34.3 [facility] Comment on above: Performed By: #### A FRANCISCO, CUU #### [facility] [address] [place] [address] MCHC Auto (RBC) [Mass/Vol]Or dered By: Halle Mac on 08-10-2023 MCHC (RBC) [Mass/Vol] 32.9 g/dL 32.0-35.0 [facility] MCV [Entitic volume] by Auto mated countOrdered By: Halle Mac on 08-10-2023 MCV (RBC) [Entitic vol] 90.0 fL Normal 80-100 [facility] Comment on above: Performed By: #### A FRANCISCO, CUU #### [facility] [address] Magnesium [Mass/volume] in S brunilda or PlasmaOrdered By: Halle Mac on 08-10-2023 Magnesium [Mass/Vol] 1.9 mg/dL Normal 1.9-2.7 [facility] Comment on above: Performed By: #### A FRANCISCO, CUU #### [facility] [address] [place] [address] Nitrite Test strip Ql (U)Ord ered By: Halle Mac on 08-10-2023 Nitrite Ql (U) Negative Negative [facility] No Panel InformationOrdered By: Halle Mac on 08-10-2023 Estimated GFR (CKD-EPI) 38.856 mL/Min [facility] Creatinine Clearance (Chem N/A [facility] Parathyrin.intact [Mass/volu me] in Serum or PlasmaOrdered By: Halle Mac on 08-10-2023 Parathyrin.intact [Mass/Vol] 38.7 pg/mL [facility] Parathyroid Hormone Intacton 08-10-2023 Parathyroid Hormone Intact 38.7 pg/mL Normal [facility] Comment on above: Result Comment: PERF ORMED BY: [place] [address] PATHOLOGIST GASTROENTEROLOGY TEACHER ARIC BUTLER M.D. Performed By: #### A FRANCISCO, CUU #### [facility] [address] [place] [address] [place] Phosphate [Mass/volume] in S brunilda or PlasmaOrdered By: Halle Mac on 08-10-2023 Phosphate [Mass/Vol] 3.7 mg/dL Normal 2.5-4.5 [facility] Comment on above: Performed By: #### A FRANCISCO, CUU #### [facility] [address] [place] [address] Platelet mean volume [Entiti c volume] in Blood by Automated countOrdered By: Halle Mac on 08-10-2023 Platelet mean volume (Bld) [Entitic vol] 9.8 fL Normal 6.3-10.7 [facility] Comment on above: Result Comment: PERF ORMED BY: [place] [address] PATHOLOGIST GASTROENTEROLOGY TEACHER ARIC BUTLER M.D. Performed By: #### A DDONUAGERMÁN, CUU #### [address] Platelets [#/volume] in Bloo d by Automated countOrdered By: Halle Mac on 08-10-2023 Platelets (Bld) [#/Vol] 217 10*3/uL Normal 150-450 [facility] Comment on above: Performed By: #### A FRANCISCO, CUU #### [address] Potassium [Moles/volume] in Serum or PlasmaOrdered By: Halle Mac on 08-10-2023 Potassium [Moles/Vol] 4.5 mmol/L Normal 3.5-5.1 [facility] Comment on above: Performed By: #### A RAMESHUAGERMÁN, CUU #### [address] Protein Auto test strip (U) [Mass/Vol]Ordered By: Halle Mac on 08-10-2023 Protein (U) [Mass/Vol] Negative Negative [facility] Protein Creat Ratio Ur Rando mon 08-10-2023 Creatinine, Urine (Random) 92.0 mg/dL Normal [facility] Comment on above: Result Comment: No r eference range established Performed By: #### V [id number], FE and TIBC, URIC, CMP, GEENA, MG, PHOS #### [address] Protein, Urine (Random) < 4 Normal 0-9 [facility] Comment on above: Performed By: #### V [id number], FE and TIBC, URIC, CMP, GEENA, MG, PHOS #### [address] Urine Protein/Creatinine Ratio Not performed Normal 0-200 [facility] Comment on above: Result Comment: PERF ORMED BY: [place] [address] PATHOLOGIST GASTROENTEROLOGY TEACHER ARIC BUTLER M.D. Performed By: #### V [id number], FE and TIBC, URIC, CMP, GEENA, MG, PHOS #### [address] Protein [Mass/volume] in Uri neOrdered By: Halle Mac on 08-10-2023 Protein (U) [Mass/Vol] mg/dL 0-9 [facility] Renal Function Panelon 08-09 Albumin [Mass/Vol] 4.0 g/dL Normal 3.5-5.7 [facility] Comment on above: Performed By: #### A FRANCISCO, CUU #### [address] GFR/1.73 sq M.predicted MDRD (S/P/Bld) [Vol rate/Area] 38.856 mL/min/{1.73_m2} Normal [facility] Comment on above: Performed By: #### A FRANCISCO, CUU #### [address] Serum or plasma anion gap de terminationOrdered By: Halle Mac on 08-10-2023 Anion gap [Moles/Vol] 11.7 mmol/L Normal 6.0-15.0 [facility] Comment on above: Performed By: #### A FRANCISCO, CUU #### [place] [address] [place] Sodium [Moles/volume] in Ser um or PlasmaOrdered By: Halle Mac on 08-10-2023 Sodium [Moles/Vol] 142 mmol/L Normal 136-145 [facility] Comment on above: Performed By: #### A FRANCISCO, CUU #### [address] Specific gravity Auto test s trip (U) [Rel density]Ordered By: Halle Mac on 08-10-2023 Specific gravity (U) [Rel density] 1.015 1.001-1.030 [facility] Squamous epithelial cells de tection in urine sediment by light microscopyOrdered By: Halle Mac on 08-10-2023 Epithelial cells.squamous LM Ql (Urine sed) None seen [HPF] 0-2 [facility] Transferrin [Mass/volume] in Serum or PlasmaOrdered By: Halle Mac on 08-10-2023 Transferrin [Mass/Vol] 343 mg/dL Normal 203-362 [facility] Comment on above: Performed By: #### A DDONUAPLUS, CUU #### [facility] [address] [place] [address] [place] Urate [Mass/volume] in Serum or PlasmaOrdered By: Halle Mac on 08-10-2023 Urate [Mass/Vol] 8.6 mg/dL High 2.3-6.6 [facility] Comment on above: Performed By: #### A DDONUAPLUS, CUU #### [facility] [address] [place] [address] [place] Urea nitrogen [Mass/volume] in Serum or PlasmaOrdered By: Halle Mac on 08-10-2023 Urea nitrogen [Mass/Vol] 32 mg/dL High 7-25 [facility] Comment on above: Performed By: #### A DDONUAPLUS, CUU #### [facility] [address] [place] [address] [place] Urine bacteria detection by automated methodOrdered By: Halle Mac on 08-10-2023 Bacteria Auto Ql (U) None seen None Seen [facility] Urine clarity by refractomet ry automatedOrdered By: Halle Mac on 08-10-2023 Clarity Refractometry automated (U) Clear Clear [facility] Urine glucose measurement by automated test strip (mass/volume)Ordered By: Halle Mac on 08-10-2023 Glucose Auto test strip (U) [Mass/Vol] Normal mg/dL Normal [facility] Urine hemoglobin detection b y automated test stripOrdered By: Halle aMc on 08-10-2023 Hemoglobin Auto test strip Ql (U) Negative Negative [facility] Urine leukocyte esterase det ection by automated test stripOrdered By: Halle Mac on 08-10-2023 Leukocyte esterase Auto test strip Ql (U) 2+ High Negative [facility] Urine pH measurement by auto mated test stripOrdered By: Halle Mac on 08-10-2023 pH (U) 5.5 [pH] Normal 5.0-9.0 [facility] Comment on above: Order Comment: Reaso n for Exam Chronic kidney disease, stage 3b;Hypertensive nephropathy;Di Performed By: #### P TH #### [facility] [address] [place] [address] Urine protein/creatinine rat ioOrdered By: Halle Mac on 08-10-2023 Protein/Creatinine (U) [Ratio] TNP [facility] Comment on above: Test not performed Urobilinogen Auto test strip (U) [Mass/Vol]Ordered By: Halle Mac on 08-10-2023 Urobilinogen (U) [Mass/Vol] Normal mg/dL Normal [facility] Vit. B12/Folate Profileon Folate 15.7 ng/mL Normal >5.9 [facility] Comment on above: Result Comment: Maria te reference range: >5.9 ng/ml The WHO technical consultation on folate and vitamin b12 deficiencies has determined that folate concentrations less than 4 ng/ml are considered deficient. Performed By: #### P TH #### [facility] [address] [place] [address] Vitamin B12 ser/plasOrdered By: Halle Mac on 08-10-2023 Cobalamin (Vitamin B12) [Mass/Vol] 164 pg/mL Low 180-914 [facility] Comment on above: Performed By: #### P TH #### [facility] [address] [place], [place] [id number] [facility] Vitamin D 25 Hydroxy Totalon 08-10-2023 Vitamin D 25 Hydroxy Total 22.4 ng/mL Low 30-100 [facility] Comment on above: Result Comment: AWAIS MIN D STATUS 25(OH)VITAMIN D RANGE (ng/mL) Deficient <20 Insufficient 20 to <30 Sufficient 30 to 100 Reference: Nicole Almonte, Ed LI, et al. Evaluation,treatment, and prevention of vitamin D deficiency; an Endocrine Society clinical practice guideline. JCEM. 2010; 96(7):191-. PERFORMED BY: [address] [place] [id number] PATHOLOGIST GASTROENTEROLOGY TEACHER ARIC BUTLER M.D. Performed By: #### P TH #### [facility] [address] [place] [id number] [facility] Vitamin D+Metabolites [Mass/ volume] in Serum or PlasmaOrdered By: Halle Mac on 08-10-2023 Vitamin D+Metabolites [Mass/Vol] 22.4 ng/mL Low 30-100 [facility] Comment on above: VITAMIN D STATUS 25( [place])VITAMIN D RANGE (ng/mL) Deficient <20 Insufficient 20 to <30Sufficient 30 to 100Reference: Nicole Almonte, Ed LI, et al. Evaluation,treatment, and prevention of vitamin D deficiency; an Endocrine Society clinical practice guideline. JCEM. 2010; 96(7):1911-30. Valproate [Mass/volume] in S brunilda or PlasmaOrdered By: Fauzia Huffman on 06-19-2023 Valproate [Mass/Vol] 14.5 ug/mL 50.0-100.0 [facility] Comment on above: Last dose: - Valproic Acid (in house)on 0 06-19-2023 Valproic Acid (in house) 14.5 ug/mL Low 50.0-100.0 [facility] Comment on above: Result Comment: Last dose: - PERFORMED BY: [address] [place] [address] PATHOLOGIST GASTROENTEROLOGY TEACHER ARIC BUTLER M.D. Performed By: #### A DDONUAPLUS, CUU #### [address] [address] [facility] Alanine aminotransferase [En zymatic activity/volume] in Serum or PlasmaOrdered By: Halle Mac on 05-17-2023 ALT [Catalytic activity/Vol] 16 U/L Normal 7-52 [facility] Comment on above: Order Comment: Reaso n for Exam Chronic kidney disease, stage 3b;Hypertensive nephropathy;Di Performed By: #### V [id number], FE and TIBC, URIC, CMP, GEENA, MG, PHOS #### [facility] [address] [id number] [place] Albumin [Mass/volume] in Ser um or Plasma by Bromocresol green (BCG) dye binding methoOrdered By: Halle Mac on 05-17-2023 Albumin BCG dye [Mass/Vol] 4.3 g/dL 3.5-5.7 [facility] Alkaline phosphatase [Enzyma tic activity/volume] in Serum or PlasmaOrdered By: Halle Mac on 05-17-2023 ALP [Catalytic activity/Vol] 61 U/L Normal 34-104 [facility] Comment on above: Order Comment: Reaso n for Exam Chronic kidney disease, stage 3b;Hypertensive nephropathy;Di Performed By: #### V [id number], FE and TIBC, URIC, CMP, GEENA, MG, PHOS #### [facility] [address] [id number] [place] Aspartate aminotransferase [ Enzymatic activity/volume] in Serum or PlasmaOrdered By: Halle Mac on 05-17-2023 AST [Catalytic activity/Vol] 23 U/L Normal 13-39 [facility] Comment on above: Order Comment: Reaso n for Exam Chronic kidney disease, stage 3b;Hypertensive nephropathy;Di Performed By: #### V [id number], FE and TIBC, URIC, CMP, GEENA, MG, PHOS #### [facility] [address] [place] [address] [place] Automated erythrocytes count in urine sediment (number/area)Ordered By: Halle Mac on 05-17-2023 RBC Auto (Urine sed) [#/Area] 3-4 [HPF] 0-4 [facility] Automated leukocytes count i n urine sediment (number/area)Ordered By: Halle Mac on 05-17-2023 WBC Auto (Urine sed) [#/Area] 10-19 [HPF] 0-4 [facility] Automated urine color determ inationOrdered By: Halle Mac on 05-17-2023 Color (U) Dark yellow Critically abnormal Yellow [facility] Comment on above: Order Comment: Reaso n for Exam Chronic kidney disease, stage 3b;Hypertensive nephropathy;Di Name Collection Type:: Clean-Voided Midstream Performed By: #### A DDONUAPLUS, CUU #### [facility] [address] [place] [address] [place] Bilirubin Test strip Ql (U)O rdered By: Halle Mac on 05-17-2023 Bilirubin Ql (U) 2+ Negative [facility] Bilirubin.total [Mass/volume ] in Serum or PlasmaOrdered By: Halle Mac on 05-17-2023 Bilirubin [Mass/Vol] 0.5 mg/dL Normal 0.3-1.0 [facility] Comment on above: Order Comment: Reaso n for Exam Chronic kidney disease, stage 3b;Hypertensive nephropathy;Di Performed By: #### V [id number], FE and TIBC, URIC, CMP, GEENA, MG, PHOS #### [facility] [address] [place] [address] [place] Calcium [Mass/volume] in Ser um or PlasmaOrdered By: Halle Mac on 05-17-2023 Calcium [Mass/Vol] 9.3 mg/dL Normal 8.6-10.3 [facility] Comment on above: Order Comment: Reaso n for Exam Chronic kidney disease, stage 3b;Hypertensive nephropathy;Di Performed By: #### V [id number], FE and TIBC, URIC, CMP, GEENA, MG, PHOS #### [facility] [address] [phone] [place] Carbon dioxide, total [Moles /volume] in Serum or PlasmaOrdered By: Halle Mac on 05-17-2023 CO2 [Moles/Vol] 28.0 mmol/L Normal 21.0-31.0 [facility] Comment on above: Order Comment: Reaso n for Exam Chronic kidney disease, stage 3b;Hypertensive nephropathy;Di Performed By: #### V [id number], FE and TIBC, URIC, CMP, GEENA, MG, PHOS #### [facility] [address] [place] [address] Casts typing in urine sedime nt by light microscopyOrdered By: Halle Mac on 05-17-2023 Casts LM Nom (Urine sed) None seen [LPF] None Seen [facility] Chloride [Moles/volume] in S brunilda or PlasmaOrdered By: Halle Mac on 05-17-2023 Chloride [Moles/Vol] 107 mmol/L Normal 98-107 [facility] Comment on above: Order Comment: Reaso n for Exam Chronic kidney disease, stage 3b;Hypertensive nephropathy;Di Performed By: #### V [id number], FE and TIBC, URIC, CMP, GEENA, MG, PHOS #### [facility] [address] [place] [address] Comprehensive Metabolic Pane pillo 05-17-2023 Albumin [Mass/Vol] 4.3 g/dL Normal 3.5-5.7 [facility] Comment on above: Order Comment: Reaso n for Exam Chronic kidney disease, stage 3b;Hypertensive nephropathy;Di Performed By: #### V [id number], FE and TIBC, URIC, CMP, GEENA, MG, PHOS #### [facility] [address] [place] [address] GFR/1.73 sq M.predicted MDRD (S/P/Bld) [Vol rate/Area] 41.013 mL/min/{1.73_m2} Normal [facility] Comment on above: Order Comment: Reaso n for Exam Chronic kidney disease, stage 3b;Hypertensive nephropathy;Di Performed By: #### V [id number], FE and TIBC, URIC, CMP, GEENA, MG, PHOS #### [facility] [address] [place] [address] Creatinine [Mass/volume] in Serum or PlasmaOrdered By: Halle Mac on 05-17-2023 Creatinine [Mass/Vol] 1.52 mg/dL High 0.60-1.20 [facility] Comment on above: Order Comment: Reaso n for Exam Chronic kidney disease, stage 3b;Hypertensive nephropathy;Di Performed By: #### V [id number], FE and TIBC, URIC, CMP, GEENA, MG, PHOS #### [facility] [address] [place] [address] Creatinine [Mass/volume] in UrineOrdered By: Halle Mac on 05-17-2023 Creatinine (U) [Mass/Vol] mg/dL 11.0-20.0 [facility] Dipstick and Microscopicon 0 05-17-2023 Appearance (U) Cloudy Critically abnormal Clear [facility] Comment on above: Order Comment: Reaso n for Exam Chronic kidney disease, stage 3b;Hypertensive nephropathy;Di Name Collection Type:: Clean-Voided Midstream Performed By: #### A DDONUAPLUS, CUU #### [address] Bacteria,Urine None Seen Normal None Seen [facility] Comment on above: Order Comment: Reaso n for Exam Chronic kidney disease, stage 3b;Hypertensive nephropathy;Di Name Collection Type:: Clean-Voided Midstream Performed By: #### A DDONUAPLUS, CUU #### [address] Bilirubin,Urine 2+ High Negative [facility] Comment on above: Order Comment: Reaso n for Exam Chronic kidney disease, stage 3b;Hypertensive nephropathy;Di Name Collection Type:: Clean-Voided Midstream Performed By: #### A DDONUAPLUS, CUU #### [place] [address] [place] Fine Granular Casts,Urine 5-9 High 0-1 [facility] Comment on above: Order Comment: Reaso n for Exam Chronic kidney disease, stage 3b;Hypertensive nephropathy;Di Name Collection Type:: Clean-Voided Midstream Performed By: #### A DDONUAPLUS, CUU #### [place] [address] [place] Glucose Ql (U) Normal Normal Normal [facility] Comment on above: Order Comment: Reaso n for Exam Chronic kidney disease, stage 3b;Hypertensive nephropathy;Di Name Collection Type:: Clean-Voided Midstream Performed By: #### A DDONUAPLUS, CUU #### [place] [address] [place] Hyaline Casts,Urine None Seen Normal 0-8 [facility] Comment on above: Order Comment: Reaso n for Exam Chronic kidney disease, stage 3b;Hypertensive nephropathy;Di Name Collection Type:: Clean-Voided Midstream Performed By: #### A DDONUAPLUS, CUU #### [place] [address] [place] Ketones Ql (U) 1+ High Negative [facility] Comment on above: Order Comment: Reaso n for Exam Chronic kidney disease, stage 3b;Hypertensive nephropathy;Di Name Collection Type:: Clean-Voided Midstream Performed By: #### A DDONUAPLUS, CUU #### [address] Leukocyte esterase Test strip Ql (U) 1+ High Negative [facility] Comment on above: Order Comment: Reaso n for Exam Chronic kidney disease, stage 3b;Hypertensive nephropathy;Di Name Collection Type:: Clean-Voided Midstream Performed By: #### A DDONUAPLUS, CUU #### [place] [address] [place] Mucus,Urine 3+ Critically abnormal [facility] Comment on above: Order Comment: Reaso n for Exam Chronic kidney disease, stage 3b;Hypertensive nephropathy;Di Name Collection Type:: Clean-Voided Midstream Performed By: #### A DDONUAPLUS, CUU #### [place] [address] [place] Nitrite,Urine Negative Normal Negative [facility] Comment on above: Order Comment: Reaso n for Exam Chronic kidney disease, stage 3b;Hypertensive nephropathy;Di Name Collection Type:: Clean-Voided Midstream Performed By: #### A DDONUAPLUS, CUU #### [place] [address] [place] Occult Blood,Urine Negative Normal Negative [facility] Comment on above: Order Comment: Reaso n for Exam Chronic kidney disease, stage 3b;Hypertensive nephropathy;Di Name Collection Type:: Clean-Voided Midstream Result Comment: PERF ORMED BY: [place] [address] PATHOLOGIST GASTROENTEROLOGY TEACHER ARIC BUTLER M.D. Performed By: #### A DDONUAPLUS, CUU #### [address] Other Casts,Urine None Seen Normal None Seen [facility] Comment on above: Order Comment: Reaso n for Exam Chronic kidney disease, stage 3b;Hypertensive nephropathy;Di Name Collection Type:: Clean-Voided Midstream Performed By: #### A DDONUAPLUS, CUU #### [address] RBC,Urine 3-4 Normal 0-4 [facility] Comment on above: Order Comment: Reaso n for Exam Chronic kidney disease, stage 3b;Hypertensive nephropathy;Di Name Collection Type:: Clean-Voided Midstream Performed By: #### A DDONUAPLUS, CUU #### [address] Specificy [place],Urine 1.025 Normal 1.001-1.030 [facility] Comment on above: Order Comment: Reaso n for Exam Chronic kidney disease, stage 3b;Hypertensive nephropathy;Di Name Collection Type:: Clean-Voided Midstream Performed By: #### A DDONUAPLUS, CUU #### [address] Squamous Epithelial Cell,Urine 3-4 High 0-2 [facility] Comment on above: Order Comment: Reaso n for Exam Chronic kidney disease, stage 3b;Hypertensive nephropathy;Di Name Collection Type:: Clean-Voided Midstream Performed By: #### A DDONUAPLUS, CUU #### [address] Urobilinogen,Urine Normal Normal Normal [facility] Comment on above: Order Comment: Reaso n for Exam Chronic kidney disease, stage 3b;Hypertensive nephropathy;Di Name Collection Type:: Clean-Voided Midstream Performed By: #### A DDONUAPLUS, CUU #### [place] [address] [place] WBC,Urine 10-19 High 0-4 [facility] Comment on above: Order Comment: Reaso n for Exam Chronic kidney disease, stage 3b;Hypertensive nephropathy;Di Name Collection Type:: Clean-Voided Midstream Performed By: #### A DDONUAGERMÁN, CUU #### [address] Yeast,Urine None Seen Normal None Seen [facility] Comment on above: Order Comment: Reaso n for Exam Chronic kidney disease, stage 3b;Hypertensive nephropathy;Di Name Collection Type:: Clean-Voided Midstream Result Comment: PERF ORMED BY: [place] [address] PATHOLOGIST GASTROENTEROLOGY TEACHER ARIC BUTLER M.D. Performed By: #### A AUDIONUAGERMÁN, CUU #### [address] Erythrocyte distribution wid th [Ratio] by Automated countOrdered By: Halle Mac on 05-17-2023 Erythrocyte distribution width (RBC) [Ratio] 13.4 % Normal 11.9-15.3 [facility] Comment on above: Order Comment: Reaso n for Exam Chronic kidney disease, stage 3b;Hypertensive nephropathy;Di Performed By: #### P TH #### [facility] [address] [place] [address] Erythrocytes [#/volume] in B lood by Automated countOrdered By: Halle Mac on 05-17-2023 RBC (Bld) [#/Vol] 4.03 10*6/uL Normal 3.60-5.00 [facility] Comment on above: Order Comment: Reaso n for Exam Chronic kidney disease, stage 3b;Hypertensive nephropathy;Di Performed By: #### P TH #### [facility] [address] [place] [address] [place] Ferritin [Mass/volume] in Se rum or PlasmaOrdered By: Halle Mac on 05-17-2023 Ferritin [Mass/Vol] 51.8 ng/mL Normal 11.0-306.8 [facility] Comment on above: Order Comment: Reaso n for Exam Chronic kidney disease, stage 3b;Hypertensive nephropathy;Di Performed By: #### V [id number], FE and TIBC, URIC, CMP, GEENA, MG, PHOS #### [facility] [address] [place] [address] [place] Fine granular cast count in urine sediment by microscopy (number/low power field )Ordered By: Halle Mac on 05-17-2023 Fine Granular Casts LM.LPF (Urine sed) [#/Area] 5-9 [LPF] 0-1 [facility] Glucose [Mass/volume] in Ser um or PlasmaOrdered By: Halle Mac on 05-17-2023 Glucose [Mass/Vol] 123 mg/dL High 70-100 [facility] Comment on above: ADA recommended refe rence rangeRandom Glucose Reference Range is dependent on time and content of last meal. Glucose of more than 200 mg/dL in a nonstressed, ambulatory subject supports the diagnosis of Diabetes Mellitus. Order Comment: Reaso n for Exam Chronic kidney disease, stage 3b;Hypertensive nephropathy;Di Result Comment: [facility] Glucose Reference Range is dependent on time and content of last meal. Glucose of more than 200 mg/dL in a nonstressed, ambulatory subject supports the diagnosis of Diabetes Mellitus. ADA recommended reference range Performed By: #### V [id number], FE and TIBC, URIC, CMP, GEENA, MG, PHOS #### [facility] [address] Hematocrit [Volume Fraction] of Blood by Automated countOrdered By: Halle Mac on 05-17-2023 Hematocrit (Bld) [Volume fraction] 36.1 % Normal 34.0-46.4 [facility] Comment on above: Order Comment: Reaso n for Exam Chronic kidney disease, stage 3b;Hypertensive nephropathy;Di Performed By: #### P TH #### [facility] [address] [place] [address] Hemoglobin [Mass/volume] in BloodOrdered By: Halle Mac on 05-17-2023 Hemoglobin (Bld) [Mass/Vol] 11.8 g/dL Normal 11.8-15.4 [facility] Comment on above: Order Comment: Reaso n for Exam Chronic kidney disease, stage 3b;Hypertensive nephropathy;Di Performed By: #### P TH #### [address] Hemogram CBC Without Diffon 05-17-2023 Mean Corpuscular HGB Conc 32.8 g/dL Normal 32.0-35.0 [facility] Comment on above: Order Comment: Reaso n for Exam Chronic kidney disease, stage 3b;Hypertensive nephropathy;Di Performed By: #### P TH #### [address] WBC (Bld) [#/Vol] 5.5 10*3/uL Normal 3.8-11.6 [facility] Comment on above: Order Comment: Reaso n for Exam Chronic kidney disease, stage 3b;Hypertensive nephropathy;Di Performed By: #### P TH #### [address] Iron [Mass/volume] in Serum or PlasmaOrdered By: Halle Mac on 05-17-2023 Iron [Mass/Vol] 57 ug/dL Normal 50-212 [facility] Comment on above: Order Comment: Reaso n for Exam Chronic kidney disease, stage 3b;Hypertensive nephropathy;Di Performed By: #### V [id number], FE and TIBC, URIC, CMP, GEENA, MG, PHOS #### [address] Iron and TIBC Profileon 02- % Iron Saturation 10.6 % Low 20-50 [facility] Comment on above: Order Comment: Reaso n for Exam Chronic kidney disease, stage 3b;Hypertensive nephropathy;Di Performed By: #### V [id number], FE and TIBC, URIC, CMP, GEENA, MG, PHOS #### [address] Total Iron Binding Capacity 538 ug/dL High 255-450 [facility] Comment on above: Order Comment: Reaso n for Exam Chronic kidney disease, stage 3b;Hypertensive nephropathy;Di Performed By: #### V [id number], FE and TIBC, URIC, CMP, GEENA, MG, PHOS #### [facility] [address] Iron binding capacity [Mass/ volume] in Serum or PlasmaOrdered By: Halle Mac on 05-17-2023 Iron binding capacity [Mass/Vol] 538 ug/dL 255-450 [facility] Iron saturation [Mass Fracti on] in Serum or PlasmaOrdered By: Halle Mac on 05-17-2023 Iron saturation [Mass fraction] 10.6 % 20-50 [facility] Ketones Auto test strip (U) [Mass/Vol]Ordered By: Halle Mac on 05-17-2023 Ketones (U) [Mass/Vol] 1+ Negative [facility] - UrinalysisOrder ed By: Halle Mac on 05-17-2023 Hyaline casts LM Ql (Urine sed) None seen [LPF] 0-8 [facility] Leukocytes [#/volume] correc joaquin for nucleated erythrocytes in Blood by Automated counOrdered By: Halle Mac on 05-17-2023 WBC corrected for nucl RBC Auto (Bld) [#/Vol] 5.5 10*3/uL 3.8-11.6 [facility] MCH [Entitic mass] by Automa joaquin countOrdered By: Halle Mac on 05-17-2023 MCH (RBC) [Entitic mass] 29.4 pg Normal 24.7-34.3 [facility] Comment on above: Order Comment: Reaso n for Exam Chronic kidney disease, stage 3b;Hypertensive nephropathy;Di Performed By: #### P TH #### [facility] [address] [place], [place] [id number] [facility] MCHC Auto (RBC) [Mass/Vol]Or dered By: Halle Mac on 05-17-2023 MCHC (RBC) [Mass/Vol] 32.8 g/dL 32.0-35.0 [facility] MCV [Entitic volume] by Auto mated countOrdered By: Halle Mac on 05-17-2023 MCV (RBC) [Entitic vol] 89.4 fL Normal 80-100 [facility] Comment on above: Order Comment: Reaso n for Exam Chronic kidney disease, stage 3b;Hypertensive nephropathy;Di Performed By: #### P TH #### [facility] [address] [place] [address] [facility] Magnesium [Mass/volume] in S brunilda or PlasmaOrdered By: Halle Mac on 05-17-2023 Magnesium [Mass/Vol] 2.0 mg/dL Normal 1.9-2.7 [facility] Comment on above: Order Comment: Reaso n for Exam Chronic kidney disease, stage 3b;Hypertensive nephropathy;Di Performed By: #### V [id number], FE and TIBC, URIC, CMP, GEENA, MG, PHOS #### [facility] [address] Mucus LM Ql (Urine sed)Order ed By: Halle Mac on 05-17-2023 Mucus Ql (Urine sed) 3+ [LPF] [facility] Nitrite Test strip Ql (U)Ord ered By: Halle Mac on 05-17-2023 Nitrite Ql (U) Negative Negative [facility] No Panel InformationOrdered By: Halle Mac on 05-17-2023 Estimated GFR (CKD-EPI) 41.013 mL/Min [facility] Creatinine Clearance (Chem N/A [facility] Parathyrin.intact [Mass/volu me] in Serum or PlasmaOrdered By: Halle Mac on 05-17-2023 Parathyrin.intact [Mass/Vol] 36.3 pg/mL [facility] Parathyroid Hormone Intacton 05-17-2023 Parathyroid Hormone Intact 36.3 pg/mL Normal [facility] Comment on above: Order Comment: Reaso n for Exam Chronic kidney disease, stage 3b;Hypertensive nephropathy;Di Result Comment: PERF ORMED BY: [address] [address] PATHOLOGIST GASTROENTEROLOGY TEACHER ARIC BUTLER M.D. Performed By: #### P TH #### [facility] [address] [place] [address] [facility] Phosphate [Mass/volume] in S brunilda or PlasmaOrdered By: Halle Mac on 05-17-2023 Phosphate [Mass/Vol] 4.4 mg/dL Normal 2.5-4.5 [facility] Comment on above: Order Comment: Reaso n for Exam Chronic kidney disease, stage 3b;Hypertensive nephropathy;Di Performed By: #### V [id number], FE and TIBC, URIC, CMP, GEENA, MG, PHOS #### [facility] [address] [place] [address] Platelet mean volume [Entiti c volume] in Blood by Automated countOrdered By: Halle Mac on 05-17-2023 Platelet mean volume (Bld) [Entitic vol] 9.5 fL Normal 6.3-10.7 [facility] Comment on above: Order Comment: Reaso n for Exam Chronic kidney disease, stage 3b;Hypertensive nephropathy;Di Result Comment: PERF ORMED BY: [place] [address] PATHOLOGIST GASTROENTEROLOGY TEACHER ARIC BUTLER M.D. Performed By: #### P TH #### [address] Platelets [#/volume] in Bloo d by Automated countOrdered By: Halle Mac on 05-17-2023 Platelets (Bld) [#/Vol] 233 10*3/uL Normal 150-450 [facility] Comment on above: Order Comment: Reaso n for Exam Chronic kidney disease, stage 3b;Hypertensive nephropathy;Di Performed By: #### P TH #### [address] Potassium [Moles/volume] in Serum or PlasmaOrdered By: Halle Mac on 05-17-2023 Potassium [Moles/Vol] 3.8 mmol/L Normal 3.5-5.1 [facility] Comment on above: Order Comment: Reaso n for Exam Chronic kidney disease, stage 3b;Hypertensive nephropathy;Di Performed By: #### V [id number], FE and TIBC, URIC, CMP, GEENA, MG, PHOS #### [address] Protein Creat Ratio Ur Rando mon 02-01-2024 Creatinine, Urine (Random) > 300.0 High 11.0-20.0 [facility] Comment on above: Order Comment: Reaso n for Exam Chronic kidney disease, stage 3b;Hypertensive nephropathy;Di Name Collection Type:: Clean-Voided Midstream Performed By: #### A FRANCISCO, CUU #### [address] Urine Protein/Creatinine Ratio Not performed Normal 0-200 [facility] Comment on above: Order Comment: Reaso n for Exam Chronic kidney disease, stage 3b;Hypertensive nephropathy;Di Name Collection Type:: Clean-Voided Midstream Result Comment: PERF ORMED BY: [place] [address] PATHOLOGIST GASTROENTEROLOGY TEACHER ARIC BUTLER M.D. Performed By: #### A FRANCISCO, CUU #### [place] [address] [place] Protein [Mass/volume] in Ser um or PlasmaOrdered By: Halle Mac on 05-17-2023 Protein [Mass/Vol] 6.6 g/dL Normal 6.4-8.9 [facility] Comment on above: Order Comment: Reaso n for Exam Chronic kidney disease, stage 3b;Hypertensive nephropathy;Di Performed By: #### V [id number], FE and TIBC, URIC, CMP, GEENA, MG, PHOS #### [facility] [address] [place] [address] Protein [Mass/volume] in Uri neOrdered By: Halle Mac on 05-17-2023 Protein (U) [Mass/Vol] 35 mg/dL High 0-9 [facility] Comment on above: Order Comment: Reaso n for Exam Chronic kidney disease, stage 3b;Hypertensive nephropathy;Di Name Collection Type:: Clean-Voided Midstream Performed By: #### A FRANCISCO, CUU #### [address] Serum globulin measurement b y calculation (mass/volume)Ordered By: Halle Mac on 05-17-2023 Globulin (S) [Mass/Vol] 2.3 g/dL [facility] Comment on above: Order Comment: Reaso n for Exam Chronic kidney disease, stage 3b;Hypertensive nephropathy;Di Performed By: #### V [id number], FE and TIBC, URIC, CMP, GEENA, MG, PHOS #### [facility] [address] Serum or plasma albumin/glob ulin mass ratioOrdered By: Halle Mac on 05-17-2023 Albumin/Globulin [Mass ratio] 1.9 {ratio} [facility] Comment on above: Order Comment: Reaso n for Exam Chronic kidney disease, stage 3b;Hypertensive nephropathy;Di Performed By: #### V [id number], FE and TIBC, URIC, CMP, GEENA, MG, PHOS #### [address] Serum or plasma anion gap de terminationOrdered By: Halle Mac on 05-17-2023 Anion gap [Moles/Vol] 10.8 mmol/L Normal 6.0-15.0 [facility] Comment on above: Order Comment: Reaso n for Exam Chronic kidney disease, stage 3b;Hypertensive nephropathy;Di Performed By: #### V [id number], FE and TIBC, URIC, CMP, GEENA, MG, PHOS #### [address] Sodium [Moles/volume] in Ser um or PlasmaOrdered By: Halle Mac on 05-17-2023 Sodium [Moles/Vol] 142 mmol/L Normal 136-145 [facility] Comment on above: Order Comment: Reaso n for Exam Chronic kidney disease, stage 3b;Hypertensive nephropathy;Di Performed By: #### V [id number], FE and TIBC, URIC, CMP, GEENA, MG, PHOS #### [facility] [address] [place] [address] [place] Specific gravity Auto test s trip (U) [Rel density]Ordered By: Halle Mac on 05-17-2023 Specific gravity (U) [Rel density] 1.025 1.001-1.030 [facility] Squamous epithelial cells de tection in urine sediment by light microscopyOrdered By: Halle Mac on 05-17-2023 Epithelial cells.squamous LM Ql (Urine sed) 3-4 [HPF] 0-2 [facility] Transferrin [Mass/volume] in Serum or PlasmaOrdered By: Halle Mac on 05-17-2023 Transferrin [Mass/Vol] 384 mg/dL High 203-362 [facility] Comment on above: Order Comment: Reaso n for Exam Chronic kidney disease, stage 3b;Hypertensive nephropathy;Di Performed By: #### V [id number], FE and TIBC, URIC, CMP, GEENA, MG, PHOS #### [facility] [address] Urate [Mass/volume] in Serum or PlasmaOrdered By: Halle Mac on 05-17-2023 Urate [Mass/Vol] 7.3 mg/dL High 2.3-6.6 [facility] Comment on above: Order Comment: Reaso n for Exam Chronic kidney disease, stage 3b;Hypertensive nephropathy;Di Performed By: #### V [id number], FE and TIBC, URIC, CMP, GEENA, MG, PHOS #### [facility] [address] [place] [address] [place] Urea nitrogen [Mass/volume] in Serum or PlasmaOrdered By: Halle Mac on 05-17-2023 Urea nitrogen [Mass/Vol] 26 mg/dL High 7-25 [facility] Comment on above: Order Comment: Reaso n for Exam Chronic kidney disease, stage 3b;Hypertensive nephropathy;Di Performed By: #### V [id number], FE and TIBC, URIC, CMP, GEENA, MG, PHOS #### [facility] [address] [place] [id number] [place] Urine Cultureon 05-17-2023 Bacteria identified Cx Nom (U) 50,000 colonies/ml mixed bacterial skin contaminants 2 Days PERFORMED BY: [place] [address] PATHOLOGIST GASTROENTEROLOGY TEACHER ARIC BUTLER M.D. Normal [facility] Comment on above: Performed By: #### A OSCAR SINGH #### [facility] [address] Urine bacteria detection by automated methodOrdered By: Halle Mac on 05-17-2023 Bacteria Auto Ql (U) None seen None Seen [facility] Urine clarity by refractomet ry automatedOrdered By: Halle Mac on 05-17-2023 Clarity Refractometry automated (U) Cloudy Clear [facility] Urine culture routineOrdered By: Halle Mac on 05-17-2023 Bacteria identified Cx Nom (U) 2 Days [facility] Urine glucose measurement by automated test strip (mass/volume)Ordered By: Halle Mac on 05-17-2023 Glucose Auto test strip (U) [Mass/Vol] Normal mg/dL Normal [facility] Urine hemoglobin detection b y automated test stripOrdered By: Halle Mac on 05-17-2023 Hemoglobin Auto test strip Ql (U) Negative Negative [facility] Urine leukocyte esterase det ection by automated test stripOrdered By: Halle Mac on 05-17-2023 Leukocyte esterase Auto test strip Ql (U) 1+ Negative [facility] Urine pH measurement by auto mated test stripOrdered By: Halle Mac on 05-17-2023 pH (U) 5.0 [pH] Normal 5.0-9.0 [facility] Comment on above: Order Comment: Reaso n for Exam Chronic kidney disease, stage 3b;Hypertensive nephropathy;Di Name Collection Type:: Clean-Voided Midstream Performed By: #### A DDONPACO, CUU #### [facility] [address] [place] [address] [place] Urine protein measurement by automated test strip (mass/volume)Ordered By: Halle Mac on 05-17-2023 Protein (U) [Mass/Vol] 30 mg/dL High Negative [facility] Comment on above: Order Comment: Reaso n for Exam Chronic kidney disease, stage 3b;Hypertensive nephropathy;Di Name Collection Type:: Clean-Voided Midstream Performed By: #### A DDONUAPLUS, CUU #### [facility] [address] [place] [address] [place] Urine protein/creatinine rat ioOrdered By: Halle Mac on 05-17-2023 Protein/Creatinine (U) [Ratio] TNP [facility] Comment on above: Test not performed Urobilinogen Auto test strip (U) [Mass/Vol]Ordered By: Halle Mac on 05-17-2023 Urobilinogen (U) [Mass/Vol] Normal mg/dL Normal [facility] Valproate [Mass/volume] in S brunilda or PlasmaOrdered By: Fauzia Huffman on 05-17-2023 Valproate [Mass/Vol] 24.0 ug/mL 50.0-100.0 [facility] Comment on above: Last dose: - Valproic Acid (in house)on 0 05-17-2023 Valproic Acid (in house) 24.0 ug/mL Low 50.0-100.0 [facility] Comment on above: Result Comment: Last dose: - PERFORMED BY: [place] [address] PATHOLOGIST GASTROENTEROLOGY TEACHER ARIC BUTLER M.D. Performed By: #### P TH #### [facility] [address] [place], [place] [id number] [facility] Vitamin D 25 Hydroxy Totalon 05-17-2023 Vitamin D 25 Hydroxy Total 24.3 ng/mL Low 30-100 [facility] Comment on above: Order Comment: [...] practice guideline. JCEM. 2010; 96(7):1911-30. PERFORMED BY: [place] [address] PATHOLOGIST GASTROENTEROLOGY TEACHER ARIC BUTLER M.D. Performed By: #### A DDALVA MALONEU #### [place] [id number] [facility] Vitamin D+Metabolites [Mass/ volume] in Serum or PlasmaOrdered By: Halle Mac on 05-17-2023 Vitamin D+Metabolites [Mass/Vol] 24.3 ng/mL 30-100 [facility] Comment on above: VITAMIN D STATUS 25( [...] (Urine sed) None seen [HPF] None Seen [facility] Provider Orderson 05-09-2023 Provider Orders [id number] Normal [facility] Office Visiton 03-14-2023 Follow-up visit [id number] Nithin Humphreys 1970 F Date Provider Department Center 03/14/2023 Pranay-TK GODOY [facility] No family history on file Level of Service:75309 [place] OFFICE/OUTPATIENT ESTABLISHED MOD MDM 30-39 MIN Normal [facility] BNPon 09-07-2022 Natriuretic peptide B (Bld) [Mass/Vol] 391.0 pg/mL Normal <=900.0 [facility] Comment on above: Performed By: #### L IPID, BMP #### [facility] [address] [place] [address] [address] Jag Waldrop CBC AUTO DIFFon 09-07-2022 BASO # 0.1 103/ul Normal 0.0-0.1 [facility] Comment on above: Performed By: #### L IPID, BMP #### [facility] [address] [place] [address] [address] Jag Waldrop Basophils/100 WBC (Bld) 1.4 % Normal 0.2-2.0 [facility] Comment on above: Performed By: #### L IPID, BMP #### [facility] [address] [place] [address] Dr. Jag Waldrop EO # 0.1 103/ul Normal 0.0-0.7 [facility] Comment on above: Performed By: #### L IPID, BMP #### [facility] [address] [place] [address] Dr. Jag Waldrop Eosinophils/100 WBC (Bld) 1.6 % Normal 0.9-7.0 [facility] Comment on above: Performed By: #### L IPID, BMP #### [facility] [address] [place] [address] Dr. Jag Waldrop Erythrocyte distribution width (RBC) [Ratio] 15.0 % Normal 11.0-15.0 [facility] Comment on above: Performed By: #### L IPID, BMP #### [facility] [address] [place] [address] Dr. Jag Waldrop Hematocrit (Bld) [Volume fraction] 37.2 % Normal 36.0-48.0 [facility] Comment on above: Performed By: #### L IPID, BMP #### [facility] [address] [place] [address] Dr. Jag Waldrop Hemoglobin (Bld) [Mass/Vol] 11.6 g/dL Critically low 12.0-16.0 [facility] Comment on above: Performed By: #### L IPID, BMP #### [facility] [address] [place] [address] Dr. Jag Waldrop IG # 0.01 10e3/ul Normal 0.00-0.03 [facility] Comment on above: Performed By: #### L IPID, BMP #### [facility] [address] [place] [address] Dr. Jag Waldrop IG % 0.2 % Normal 0.0-0.5 [facility] Comment on above: Performed By: #### L IPID, BMP #### [facility] [address] [place] [address] Dr. Jag Waldrop LYMPH # 1.9 103/ul Normal 1.2-3.8 [facility] Comment on above: Performed By: #### L IPID, BMP #### [facility] [address] [place] [address] Dr. Jag Waldrop Lymphocytes/100 WBC (Bld) 39.1 % Normal 20.5-60.0 [facility] Comment on above: Performed By: #### L IPID, BMP #### [facility] [address] [place] [address] Dr. Jag Waldrop MANUAL DIFF REQ NO Normal [facility] Comment on above: Performed By: #### L IPID, BMP #### [facility] [address] [place] [address] Dr. Jag Waldrop MCH (RBC) [Entitic mass] 27.5 pg Normal 26.7-34.0 [facility] Comment on above: Performed By: #### L IPID, BMP #### [facility] [address] [place] [address] Dr. Jag Waldrop MCHC (RBC) [Mass/Vol] 31.2 g/dL Normal 29.9-35.2 [facility] Comment on above: Performed By: #### L IPID, BMP #### [facility] [address] [place] [address] Dr. Jag Waldrop MCV (RBC) [Entitic vol] 88.2 fL Normal 81.0-99.0 [facility] Comment on above: Performed By: #### L IPID, BMP #### [facility] [address] [place] [address] Dr. Jag Waldrop MONO # 0.3 103/ul Normal 0.3-0.8 [facility] Comment on above: Performed By: #### L IPID, BMP #### [facility] [address] [place] [address] Dr. Jag Waldrop Monocytes/100 WBC (Bld) 6.5 % Normal 1.7-12.0 [facility] Comment on above: Performed By: #### L IPID, BMP #### [facility] [address] [place] [address] Dr. Jag Waldrop NEUT # 2.5 103/ul Normal 1.4-6.5 [facility] Comment on above: Performed By: #### L IPID, BMP #### [facility] [address] [place] [address] Dr. Jag Waldrop Neutrophils/100 WBC (Bld) 51.2 % Normal 43.0-75.0 [facility] Comment on above: Performed By: #### L IPID, BMP #### [facility] [address] [place] [address] Dr. Jag Waldrop Platelet mean volume (Bld) [Entitic vol] 10.5 fL Normal 9.5-13.5 [facility] Comment on above: Performed By: #### L IPID, BMP #### [facility] [address] [place] [address] Dr. Jag Waldrop PLT 272 103/ul Normal 150-450 [facility] Comment on above: Performed By: #### L IPID, BMP #### [facility] [address] [place] [address] Dr. Jag Waldrop RBC 4.22 106/ul Normal 4.20-5.40 [facility] Comment on above: Performed By: #### L IPID, BMP #### [facility] [address] [place] [address] Dr. Jag Waldrop WBC 4.9 103/ul Normal 4.0-11.0 [facility] Comment on above: Performed By: #### L IPID, BMP #### [facility] [address] [place] [address] Dr. Jag Waldrop ER URINE PROFILEon 3 Bilirubin Ql (U) Negative Normal NEGATIVE [facility] Comment on above: Performed By: #### E RUR #### [facility] [address] [place] [address] Dr. Jag Waldrop Clarity (U) CLEAR Normal CLEAR [facility] Comment on above: Performed By: #### E RUR #### [facility] [address] [place] [address] Dr. Jag Waldrop Color (U) LT. YELLOW Normal YELLOW [facility] Comment on above: Performed By: #### E RUR #### [facility] [address] [place] [address] Dr. Jag SAL A micrscopic examina tion will be performed if indicated. Normal [facility] Comment on above: Performed By: #### E RUR #### [facility] [address] [place] [address] Dr. Jag Waldrop Glucose Ql (U) Negative Normal NEGATIVE [facility] Comment on above: Performed By: #### E RUR #### [facility] [address] [place] [address] Dr. Jag Waldrop Hemoglobin Ql (U) Negative Normal NEGATIVE [facility] Comment on above: Performed By: #### E RUR #### [facility] [address] [place] [address] Dr. Jag Waldrop Ketones Ql (U) Negative Normal NEGATIVE [facility] Comment on above: Performed By: #### E RUR #### [facility] [address] [place] [address] Dr. Jag Waldrop LEUKOCYTES Negative Normal NEGATIVE [facility] Comment on above: Performed By: #### E RUR #### [facility] [address] [place] [address] Dr. Jag Waldrop Nitrite Ql (U) Negative Normal NEGATIVE [facility] Comment on above: Performed By: #### E RUR #### [facility] [address] [place] [address] Dr. Jag Waldrop pH (U) 7.0 [pH] Normal 5-9 [facility] Comment on above: Performed By: #### E RUR #### [facility] [address] [place] [address] Dr. Jag Waldrop SPEC GRAVITY 1.010 Normal 1.005-<=1.0 25 [facility] Comment on above: Performed By: #### E RUR #### [facility] [address] [place] [address] Dr. Jag Waldrop UA PROTEIN Negative Normal NEGATIVE/ TRACE [facility] Comment on above: Performed By: #### E RUR #### [facility] [address] [place] [address] Dr. Jag Waldrop UR MICRO IND NOT INDICATED Normal [facility] Comment on above: Performed By: #### E RUR #### [facility] [address] [place] [address] Dr. Jag Waldrop Urobilinogen Qn (U) 0.2 {Chris'U}/dL Normal 0.2 - 1. 0 [facility] Comment on above: Performed By: #### E RUR #### [facility] [address] [place] [address] Dr. Jag Waldrop PROF 14(COMP METB)on 023 Albumin [Mass/Vol] 3.9 g/dL Normal 3.4-5.0 [facility] Comment on above: Performed By: #### L IPID, BMP #### [facility] [address] [place] [address] Dr. Jag Waldrop Albumin/Globulin [Mass ratio] 1.2 {ratio} Normal [facility] Comment on above: Performed By: #### L IPID, BMP #### [facility] [address] [place] [address] Dr. Jag Waldrop ALP [Catalytic activity/Vol] 95 U/L Normal 46-116 [facility] Comment on above: Performed By: #### L IPID, BMP #### [facility] [address] [place] [address] Dr. Jag Waldrop ALT [Catalytic activity/Vol] 31 U/L Normal 14-59 [facility] Comment on above: Performed By: #### L IPID, BMP #### [facility] [address] [place] [address] Dr. Jag Waldrop Anion gap [Moles/Vol] 12.7 mmol/L Normal [facility] Comment on above: Performed By: #### L IPID, BMP #### [facility] [address] [place] [address] Dr. Jag Waldrop AST [Catalytic activity/Vol] 34 U/L Normal 15-37 [facility] Comment on above: Performed By: #### L IPID, BMP #### [facility] [address] [place] [address] Dr. Jag Waldrop Bilirubin [Mass/Vol] 0.4 mg/dL Normal 0.2-1.0 [facility] Comment on above: Performed By: #### L IPID, BMP #### [facility] [address] [place] [address] Dr. Jag Waldrop Calcium [Mass/Vol] 9.1 mg/dL Normal 8.5-10.1 [facility] Comment on above: Performed By: #### L IPID, BMP #### [facility] [address] [place] [address] Dr. Jag Waldrop Chloride [Moles/Vol] 107 mmol/L Normal 98-107 [facility] Comment on above: Performed By: #### L IPID, BMP #### [facility] [address] [place] [address] Dr. Jag Waldrop CO2 [Moles/Vol] 28.1 mmol/L Normal 21.0-32.0 [facility] Comment on above: Performed By: #### L IPID, BMP #### [facility] [address] [place] [address] Dr. Jag Waldrop Creatinine [Mass/Vol] 1.18 mg/dL Critically high 0.55-1.02 [facility] Comment on above: Performed By: #### L IPID, BMP #### [facility] [address] [place] [address] Dr. Jag Waldrop EGFR-AF SIERRA LEONEAN 59 mL/min/1.73m2 Critically low >=60 [facility] Comment on above: Performed By: #### L IPID, BMP #### [facility] [address] [place] [address] Dr. Jag Waldrop EGFR-NON AF SIERRA LEONEAN 48 mL/min/1.73m2 Critically low >=60 [facility] Comment on above: Performed By: #### L IPID, BMP #### [facility] [address] [place] [address] Dr. Jag Waldrop Globulin (S) [Mass/Vol] 3.3 g/dL Normal [facility] Comment on above: Performed By: #### L IPID, BMP #### [facility] [address] [place] [address] Dr. Jag Waldrop Glucose [Mass/Vol] 111 mg/dL Critically high 74-106 [facility] Comment on above: Performed By: #### L IPID, BMP #### [facility] [address] [place] [address] Dr. Jag Waldrop Potassium [Moles/Vol] 3.8 mmol/L Normal 3.5-5.1 [facility] Comment on above: Performed By: #### L IPID, BMP #### [facility] [address] [place] [address] Dr. Jag Waldrop Protein [Mass/Vol] 7.2 g/dL Normal 6.4-8.2 [facility] Comment on above: Performed By: #### L IPID, BMP #### [facility] [address] [place] [address] Dr. Jag Waldrop Sodium [Moles/Vol] 144 mmol/L Normal 136-145 [facility] Comment on above: Performed By: #### L IPID, BMP #### [facility] [address] [place] [address] Dr. Jag Waldrop Urea nitrogen [Mass/Vol] 19.0 mg/dL Critically high 7.0-18.0 [facility] Comment on above: Performed By: #### L IPID, BMP #### [facility] [address] [place] [address] Dr. Jag Waldrop Urea nitrogen/Creatinine [Mass ratio] 16.1 mg/mg Normal [facility] Comment on above: Performed By: #### L IPID, BMP #### [facility] [address] [place] [address] Dr. Jag Waldrop PROTIMEon 09-07-2022 INR Coag (PPP) [Relative time] {INR} Normal [facility] Comment on above: Performed By: #### P T #### [facility] [address] [place] [address] Dr. Jag Waldrop INR GUIDELINES SEE BELOW Normal [facility] Comment on above: Result Comment: MARTIN RED INR: 2.0 - 3.0 CONDITIONS NOT LISTED BELOW 2.5 - 3.5 FOR PROSTHETIC HEART VALVE REPLACEMENT 2.5 - 3.5 RECURRENT THROMBOSIS Performed By: #### P T #### [facility] [address] [place] [address] [address] Jag Waldrop PT Coag (PPP) [Time] 9.7 s Normal 9.0-11.6 [facility] Comment on above: Performed By: #### P T #### [facility] [address] [address] [address] Jag Waldrop TROPONIN, HIGH SENSITIVITYon 09-07-2022 HSTROP 17.8 pg/mL Normal 4.0-51.3 [facility] Comment on above: Result Comment: CUT- OFF POINTS HAVE BEEN ESTABLISHED BASED ON THE FOURTH UNIVERSAL DEFINITIONS OF MYOCARDIAL INFARCTION. THE UPPER REFERENCE LIMIT (URL) OF TROPONIN, DEFINED THE 99TH PERCENTILE OF cTnI DISTRIBUTION IN A REFERENCE POPULATION, HAS BEEN CONFIRMED THE DECISION THRESHOLD FOR RI DIAGNOSIS. Performed By: #### L IPID, BMP #### [facility] [address] [address] [address] Jag Waldrop XR CHEST 2 Von [...] by: WAN JENKINS Date: 2022-09-07 16:47 Normal [facility] GLYCOHEMOGLOBIN A1Con 2022 ADA RECOMMENDATION SEE BELOW Normal [facility] Comment on above: Result Comment: ADA RECOMMENDED LIMIT 4.0 - 6.0 ADA THERAPEUTIC TARGET < 7.0 ACTION SUGGESTED > 7.0 Performed By: #### L IPID, BMP #### [facility] [address] [address] [address] Jag Waldrop Glucose [Mass/Vol] 120 mg/dL Normal [facility] Comment on above: Performed By: #### L IPID, BMP #### [facility] [address] [address] [address] Jag Waldrop HbA1c (Bld) [Mass fraction] 5.8 % Normal 4.5-6.2 [facility] Comment on above: Performed By: #### L IPID, BMP #### [facility] [address] [address] [address] Jag Waldrop PROF CHEM 8 (BAS METB)on Anion gap [Moles/Vol] 13.2 mmol/L Normal [facility] Comment on above: Performed By: #### B MP #### [facility] [address] [place] [address] Dr. Jag Waldrop Calcium [Mass/Vol] 9.0 mg/dL Normal 8.5-10.1 [facility] Comment on above: Performed By: #### B MP #### [facility] [address] [place] [address] Dr. Jag Waldrop Chloride [Moles/Vol] 107 mmol/L Normal 98-107 [facility] Comment on above: Performed By: #### B MP #### [facility] [address] [place] [address] Dr. Jag Waldrop CO2 [Moles/Vol] 26.3 mmol/L Normal 21.0-32.0 [facility] Comment on above: Performed By: #### B MP #### [facility] [address] [address] [address] Jag Waldrop Creatinine [Mass/Vol] 1.03 mg/dL Critically high 0.55-1.02 [facility] Comment on above: Performed By: #### B MP #### [facility] [address] [place] [address] Dr. Jag Waldrop EGFR-AF SIERRA LEONEAN >60 Normal >=60 [facility] Comment on above: Performed By: #### B MP #### [facility] [address] [place] [address] Dr. Jag Waldrop EGFR-NON AF SIERRA LEONEAN 56 mL/min/1.73m2 Critically low >=60 [facility] Comment on above: Performed By: #### B MP #### [facility] [address] [address] [address] Jag Waldrop Glucose [Mass/Vol] 149 mg/dL Critically high 74-106 T [facility] Comment on above: Performed By: #### B MP #### [facility] [address] [address] [address] Jag Waldrop Potassium [Moles/Vol] 4.5 mmol/L Normal 3.5-5.1 [facility] Comment on above: Performed By: #### B MP #### [facility] [address] [address] [address] Jag Waldrop Sodium [Moles/Vol] 142 mmol/L Normal 136-145 [facility] Comment on above: Performed By: #### B MP #### [facility] [address] [address] [address] Jag Waldrop Urea nitrogen [Mass/Vol] 22.0 mg/dL Critically high 7.0-18.0 [facility] Comment on above: Performed By: #### B MP #### [facility] [address] [address] [address] Jag Waldrop Urea nitrogen/Creatinine [Mass ratio] 21.4 mg/mg Normal [facility] Comment on above: Performed By: #### B MP #### [facility] [address] [address] [address] ABD/PELVIS WO CONon [...] by: NATHAN COLE Date: 2022-05-29 22:50 Normal [facility] US KVNG DOP LEG RTon [...] by: LUZ COELLO Date: 2022-05-29 22:42 Normal [facility] CBC AUTO DIFFon 05-29-2022 BASO # 0.1 103/ul Normal 0.0-0.1 [facility] Comment on above: Performed By: #### L IPID, BMP #### [facility] [address] [address] [address] Jag Waldrop Basophils/100 WBC (Bld) 0.7 % Normal 0.2-2.0 [facility] Comment on above: Performed By: #### L IPID, BMP #### [facility] [address] [place] [address] Dr. Jag Waldrop EO # 0.1 103/ul Normal 0.0-0.7 [facility] Comment on above: Performed By: #### L IPID, BMP #### [facility] [address] [place] [address] Dr. Jag Waldrop Eosinophils/100 WBC (Bld) 1.5 % Normal 0.9-7.0 [facility] Comment on above: Performed By: #### L IPID, BMP #### [facility] [address] [place] [address] Dr. Jag Waldrop Erythrocyte distribution width (RBC) [Ratio] 13.9 % Normal 11.0-15.0 [facility] Comment on above: Performed By: #### L IPID, BMP #### [facility] [address] [place] [address] Dr. Jag Waldrop Hematocrit (Bld) [Volume fraction] 34.2 % Critically low 36.0-48.0 [facility] Comment on above: Performed By: #### L IPID, BMP #### [facility] [address] [place] [address] Dr. Jag Waldrop Hemoglobin (Bld) [Mass/Vol] 10.9 g/dL Critically low 12.0-16.0 [facility] Comment on above: Performed By: #### L IPID, BMP #### [facility] [address] [place] [address] Dr. Jag Waldrop IG # 0.02 10e3/ul Normal 0.00-0.03 [facility] Comment on above: Performed By: #### L IPID, BMP #### [facility] [address] [place] [address] Dr. Jag Waldrop IG % 0.2 % Normal 0.0-0.5 [facility] Comment on above: Performed By: #### L IPID, BMP #### [facility] [address] [place] [address] Dr. Jag Waldrop LYMPH # 2.5 103/ul Normal 1.2-3.8 [facility] Comment on above: Performed By: #### L IPID, BMP #### [facility] [address] [place] [address] Dr. Jag Waldrop Lymphocytes/100 WBC (Bld) 30.4 % Normal 20.5-60.0 [facility] Comment on above: Performed By: #### L IPID, BMP #### [facility] [address] [place] [address] Dr. Jag Waldrop MANUAL DIFF REQ NO Normal [facility] Comment on above: Performed By: #### L IPID, BMP #### [facility] [address] [place] [address] Dr. Jag Waldrop MCH (RBC) [Entitic mass] 27.1 pg Normal 26.7-34.0 [facility] Comment on above: Performed By: #### L IPID, BMP #### [facility] [address] [place] [address] Dr. Jag Waldrop MCHC (RBC) [Mass/Vol] 31.9 g/dL Normal 29.9-35.2 [facility] Comment on above: Performed By: #### L IPID, BMP #### [facility] [address] [place] [address] Dr. Jag Waldrop MCV (RBC) [Entitic vol] 85.1 fL Normal 81.0-99.0 [facility] Comment on above: Performed By: #### L IPID, BMP #### [facility] [address] [place] [address] Dr. Jag Waldrop MONO # 0.5 103/ul Normal 0.3-0.8 [facility] Comment on above: Performed By: #### L IPID, BMP #### [facility] [address] [place] [address] Dr. Jag Waldrop Monocytes/100 WBC (Bld) 6.7 % Normal 1.7-12.0 [facility] Comment on above: Performed By: #### L IPID, BMP #### [facility] [address] [address] [address] Jag Waldrop NEUT # 4.9 103/ul Normal 1.4-6.5 [facility] Comment on above: Performed By: #### L IPID, BMP #### [facility] [address] [address] [address] Jag Waldrop Neutrophils/100 WBC (Bld) 60.5 % Normal 43.0-75.0 [facility] Comment on above: Performed By: #### L IPID, BMP #### [facility] [address] [place] [address] Dr. Jag Waldrop Platelet mean volume (Bld) [Entitic vol] 10.3 fL Normal 9.5-13.5 [facility] Comment on above: Performed By: #### L IPID, BMP #### [facility] [address] [place] [address] Dr. Jag Waldrop PLT 256 103/ul Normal 150-450 [facility] Comment on above: Performed By: #### L IPID, BMP #### [facility] [address] [place] [address] Dr. Jag Waldrop RBC 4.02 106/ul Critically low 4.20-5.40 [facility] Comment on above: Performed By: #### L IPID, BMP #### [facility] [address] [place] [address] Dr. Jag Waldrop WBC 8.1 103/ul Normal 4.0-11.0 [facility] Comment on above: Performed By: #### L IPID, BMP #### [facility] [address] [place] [address] Dr. Jag Waldrop ER URINE PROFILEon 3 Bilirubin Ql (U) Negative Normal NEGATIVE [facility] Comment on above: Performed By: #### L IPID, BMP #### [facility] [address] [place] [address] Dr. Jag Waldrop Clarity (U) CLEAR Normal CLEAR [facility] Comment on above: Performed By: #### L IPID, BMP #### [facility] [address] [place] [address] Dr. Jag Waldrop Color (U) YELLOW Normal YELLOW [facility] Comment on above: Performed By: #### L IPID, BMP #### [facility] [address] [place] [address] Dr. Jag SAL A micrscopic examina tion will be performed if indicated. Normal [facility] Comment on above: Performed By: #### L IPID, BMP #### [facility] [address] [place] [address] Dr. Jag Waldrop Glucose Ql (U) Negative Normal NEGATIVE [facility] Comment on above: Performed By: #### L IPID, BMP #### [facility] [address] [place] [address] Dr. Jag Waldrop Hemoglobin Ql (U) Negative Normal NEGATIVE [facility] Comment on above: Performed By: #### L IPID, BMP #### [facility] [address] [place] [address] Dr. Jag Waldrop Ketones Ql (U) 15 mg/dl Abnormal NEGATIVE [facility] Comment on above: Performed By: #### L IPID, BMP #### [facility] [address] [place] [address] Dr. Jag Waldrop LEUKOCYTES TRACE Abnormal NEGATIVE [facility] Comment on above: Performed By: #### L IPID, BMP #### [facility] [address] [place] [address] Dr. Jag Waldrop Nitrite Ql (U) Negative Normal NEGATIVE [facility] Comment on above: Performed By: #### L IPID, BMP #### [facility] [address] [place] [address] Dr. Jag Waldrop pH (U) 5.5 [pH] Normal 5-9 [facility] Comment on above: Performed By: #### L IPID, BMP #### [facility] [address] [place] [address] Dr. Jag Waldrop SPEC GRAVITY 1.020 Normal 1.005-<=1.0 25 [facility] Comment on above: Performed By: #### L IPID, BMP #### [facility] [address] [place] [address] Dr. Jag Waldrop UA PROTEIN Negative Normal NEGATIVE/ TRACE [facility] Comment on above: Performed By: #### L IPID, BMP #### [facility] [address] [place] [address] Dr. Jag Waldrop UR MICRO IND INDICATED Normal [facility] Comment on above: Performed By: #### L IPID, BMP #### [facility] [address] [place] [address] Dr. Jag Waldrop Urobilinogen Qn (U) 0.2 {Chris'U}/dL Normal 0.2 - 1. 0 [facility] Comment on above: Performed By: #### L IPID, BMP #### [facility] [address] [place] [address] Dr. Jag Waldrop PROF CHEM 8 (BAS METB)on Anion gap [Moles/Vol] 14.2 mmol/L Normal [facility] Comment on above: Performed By: #### B MP #### [facility] [address] [place] [address] Dr. Jag Waldrop Calcium [Mass/Vol] 9.1 mg/dL Normal 8.5-10.1 [facility] Comment on above: Performed By: #### B MP #### [facility] [address] [place] [address] Dr. Jag Waldrop Chloride [Moles/Vol] 106 mmol/L Normal 98-107 [facility] Comment on above: Performed By: #### B MP #### [facility] [address] [place] [address] Dr. Jag Waldrop CO2 [Moles/Vol] 23.5 mmol/L Normal 21.0-32.0 [facility] Comment on above: Performed By: #### B MP #### [facility] [address] [place] [address] Dr. Jag Waldrop Creatinine [Mass/Vol] 1.29 mg/dL Critically high 0.55-1.02 [facility] Comment on above: Performed By: #### B MP #### [facility] [address] [address] [address] Jag Waldrop EGFR-AF SIERRA LEONEAN 53 mL/min/1.73m2 Critically low >=60 [facility] Comment on above: Performed By: #### B MP #### [facility] [address] [address] [address] Jag Waldrop EGFR-NON AF SIERRA LEONEAN 44 mL/min/1.73m2 Critically low >=60 [facility] Comment on above: Performed By: #### B MP #### [facility] [address] [address] [address] Jag Waldrop Glucose [Mass/Vol] 93 mg/dL Normal 74-106 [facility] Comment on above: Performed By: #### B MP #### [facility] [address] [place] [address] Dr. Jag Waldrop Potassium [Moles/Vol] 3.7 mmol/L Normal 3.5-5.1 [facility] Comment on above: Performed By: #### B MP #### [facility] [address] [address] [address] Jag Waldrop Sodium [Moles/Vol] 140 mmol/L Normal 136-145 [facility] Comment on above: Performed By: #### B MP #### [facility] [address] [place] [address] Dr. Jag Waldrop Urea nitrogen [Mass/Vol] 24.0 mg/dL Critically high 7.0-18.0 [facility] Comment on above: Performed By: #### B MP #### [facility] [address] [address] [address] Jag Waldrop Urea nitrogen/Creatinine [Mass ratio] 18.6 mg/mg Normal [facility] Comment on above: Performed By: #### B MP #### [facility] [address] [place] [address] Dr. Jag Waldrop URINE MICROSCOPIC ONLYon BACTERIA TRACE Abnormal NONE SEEN [facility] Comment on above: Performed By: #### L IPID, BMP #### [facility] [address] [place] [address] Dr. Jag Waldrop Bacteria identified Cx Nom (U) NOT INDICATED Normal [facility] Comment on above: Performed By: #### L IPID, BMP #### [facility] [address] [place] [address] Dr. Jag Waldrop CAST NONE SEEN Normal NONE SEEN [facility] Comment on above: Performed By: #### L IPID, BMP #### [facility] [address] [place] [address] Dr. Jag Waldrop Crystals LM Nom (Urine sed) NONE SEEN Normal NONE SEEN [facility] Comment on above: Performed By: #### L IPID, BMP #### [facility] [address] [place] [address] Dr. Jag Waldrop Epithelial cells LM Ql (Urine sed) RARE Normal NONE SEEN /RARE [facility] Comment on above: Performed By: #### L IPID, BMP #### [facility] [address] [place] [address] Dr. Jag Waldrop MUCOUS NONE SEEN Normal NONE SEEN [facility] Comment on above: Performed By: #### L IPID, BMP #### [facility] [address] [place] [address] Dr. Jag Waldrop RBC 5-10 Abnormal 0-2 [facility] Comment on above: Performed By: #### L IPID, BMP #### [facility] [address] [place] [address] Dr. Jag Waldrop WBC 0-2 Abnormal NONE SEEN [facility] Comment on above: Performed By: #### L IPID, BMP #### [facility] [address] [place] [address] Dr. 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 LOCATION: [facility] BREAST COMPOSITION: Scattered areas fibroglandular [...] M.D. on 03/29/2022 at 15:31 Normal [facility] MRI LSPINE WO W CONon [...] by: KATHY LOBATO Date: 2022-03-23 11:26 Normal [facility] MRI TSPINE WO W CONon 2021 MRI [...] by: KATHY LOBATO Date: 2022-03-23 12:50 Normal [facility] PROF CHEM 8 (BAS METB)on Anion gap [Moles/Vol] 11.8 mmol/L Normal [facility] Comment on above: Performed By: #### P OCGLUC #### [facility] [address] [address] [address] Jag Waldrop Calcium [Mass/Vol] 9.0 mg/dL Normal 8.5-10.1 [facility] Comment on above: Performed By: #### P OCGLUC #### [facility] [address] [address] [address] Jag Waldrop Chloride [Moles/Vol] 107 mmol/L Normal 98-107 [facility] Comment on above: Performed By: #### P OCGLUC #### [facility] [address] [address] [address] Jag Waldrop CO2 [Moles/Vol] 30.2 mmol/L Normal 21.0-32.0 [facility] Comment on above: Performed By: #### P OCGLUC #### [facility] [address] [address] [address] Jag Waldrop Creatinine [Mass/Vol] 1.32 mg/dL Critically high 0.55-1.02 [facility] Comment on above: Performed By: #### P OCGLUC #### [facility] [address] [place] [address] Dr. Jag Waldrop EGFR-AF SIERRA LEONEAN 51 mL/min/1.73m2 Critically low >=60 [facility] Comment on above: Performed By: #### P OCGLUC #### [facility] [address] [place] [address] Dr. Jag Waldrop EGFR-NON AF SIERRA LEONEAN 42 mL/min/1.73m2 Critically low >=60 [facility] Comment on above: Performed By: #### P OCGLUC #### [facility] [address] [place] [address] Dr. Jag Waldrop Glucose [Mass/Vol] 117 mg/dL Critically high 74-106 [facility] Comment on above: Performed By: #### P OCGLUC #### [facility] [address] [place] [address] Dr. Jag Waldrop Potassium [Moles/Vol] 4.0 mmol/L Normal 3.5-5.1 [facility] Comment on above: Performed By: #### P OCGLUC #### [facility] [address] [place] [address] Dr. Jag Waldrop Sodium [Moles/Vol] 145 mmol/L Normal 136-145 [facility] Comment on above: Performed By: #### P OCGLUC #### [facility] [address] [address] [address] Jag Waldrop Urea nitrogen [Mass/Vol] 23.0 mg/dL Critically high 7.0-18.0 [facility] Comment on above: Performed By: #### P OCGLUC #### [facility] [address] [place] [address] Dr. Jag Waldrop Urea nitrogen/Creatinine [Mass ratio] 17.4 mg/mg Normal [facility] Comment on above: Performed By: #### P OCGLUC #### [facility] [address] [place] [address] Dr. Jag Waldrop CBC AUTO DIFFon 02-19-2022 BASO # 0.1 103/ul Normal 0.0-0.1 [facility] Comment on above: Performed By: #### P OCGLUC #### [facility] [address] [place] [address] Dr. Jag Waldrop Basophils/100 WBC (Bld) 1.0 % Normal 0.2-2.0 [facility] Comment on above: Performed By: #### P OCGLUC #### [facility] [address] [place] [address] Dr. Jag Waldrop EO # 0.1 103/ul Normal 0.0-0.7 [facility] Comment on above: Performed By: #### P OCGLUC #### [facility] [address] [place] [address] Dr. Jag Waldrop Eosinophils/100 WBC (Bld) 1.9 % Normal 0.9-7.0 [facility] Comment on above: Performed By: #### P OCGLUC #### [facility] [address] [place] [address] Dr. Jag Waldrop Erythrocyte distribution width (RBC) [Ratio] 13.2 % Normal 11.0-15.0 [facility] Comment on above: Performed By: #### P OCGLUC #### [facility] [address] [place] [address] Dr. Jag Waldrop Hematocrit (Bld) [Volume fraction] 36.7 % Normal 36.0-48.0 [facility] Comment on above: Performed By: #### P OCGLUC #### [facility] [address] [place] [address] Dr. Jag Waldrop Hemoglobin (Bld) [Mass/Vol] 11.4 g/dL Critically low 12.0-16.0 [facility] Comment on above: Performed By: #### P OCGLUC #### [facility] [address] [place] [address] Dr. Jag Waldrop IG # 0.03 10e3/ul Normal 0.00-0.03 [facility] Comment on above: Performed By: #### P OCGLUC #### [facility] [address] [place] [address] Dr. Jag Waldrop IG % 0.5 % Normal 0.0-0.5 [facility] Comment on above: Performed By: #### P OCGLUC #### [facility] [address] [place] [address] Dr. Jag Waldrop LYMPH # 2.1 103/ul Normal 1.2-3.8 [facility] Comment on above: Performed By: #### P OCGLUC #### [facility] [address] [place] [address] Dr. Jag Waldrop Lymphocytes/100 WBC (Bld) 34.1 % Normal 20.5-60.0 [facility] Comment on above: Performed By: #### P OCGLUC #### [facility] [address] [place] [address] Dr. Jag Waldrop MANUAL DIFF REQ NO Normal [facility] Comment on above: Performed By: #### P OCGLUC #### [facility] [address] [place] [address] Dr. Jag Waldrop MCH (RBC) [Entitic mass] 28.4 pg Normal 26.7-34.0 [facility] Comment on above: Performed By: #### P OCGLUC #### [facility] [address] [place] [address] Dr. Jag Waldrop MCHC (RBC) [Mass/Vol] 31.1 g/dL Normal 29.9-35.2 [facility] Comment on above: Performed By: #### P OCGLUC #### [facility] [address] [place] [address] Dr. Jag Waldrop MCV (RBC) [Entitic vol] 91.5 fL Normal 81.0-99.0 [facility] Comment on above: Performed By: #### P OCGLUC #### [facility] [address] [place] [address] Dr. Jag Waldrop MONO # 0.5 103/ul Normal 0.3-0.8 [facility] Comment on above: Performed By: #### P OCGLUC #### [facility] [address] [place] [address] Dr. Jag Waldrop Monocytes/100 WBC (Bld) 8.4 % Normal 1.7-12.0 [facility] Comment on above: Performed By: #### P OCGLUC #### [facility] [address] [place] [address] Dr. Jag Waldrop NEUT # 3.3 103/ul Normal 1.4-6.5 [facility] Comment on above: Performed By: #### P OCGLUC #### [facility] [address] [place] [address] Dr. Jag Waldrop Neutrophils/100 WBC (Bld) 54.1 % Normal 43.0-75.0 [facility] Comment on above: Performed By: #### P OCGLUC #### [facility] [address] [place] [address] Dr. Jag Waldrop Platelet mean volume (Bld) [Entitic vol] 10.6 fL Normal 9.5-13.5 [facility] Comment on above: Performed By: #### P OCGLUC #### [facility] [address] [place] [address] Dr. Jag Waldrop PLT 294 103/ul Normal 150-450 [facility] Comment on above: Performed By: #### P OCGLUC #### [facility] [address] [place] [address] Dr. Jag Waldrop RBC 4.01 106/ul Critically low 4.20-5.40 [facility] Comment on above: Performed By: #### P OCGLUC #### [facility] [address] [place] [address] Dr. Jag Waldrop WBC 6.2 103/ul Normal 4.0-11.0 [facility] Comment on above: Performed By: #### P OCGLUC #### [facility] [address] [place] [address] Dr. Jag Waldrop CRPon 02-19-2022 CRP [Mass/Vol] mg/L Normal <=1.0 [facility] Comment on above: Performed By: #### E RUR #### [facility] [address] [place] [address] TSPINE WO CONon [...] ALEX AVINA Date: 2022-02-19 19:25 Normal [facility] ER URINE PROFILEon 2 Bilirubin Ql (U) Negative Normal NEGATIVE [facility] Comment on above: Performed By: #### P OCGLUC #### [facility] [address] [place] [address] Dr. Jag Waldrop Clarity (U) CLEAR Normal CLEAR [facility] Comment on above: Performed By: #### P OCGLUC #### [facility] [address] [place] [address] Dr. Jag Waldrop Color (U) LT. YELLOW Normal YELLOW [facility] Comment on above: Performed By: #### P OCGLUC #### [facility] [address] [address] [address] Jag SAL A micrscopic examina tion will be performed if indicated. Normal [facility] Comment on above: Performed By: #### P OCGLUC #### [facility] [address] [address] [address] Jag Waldrop Glucose Ql (U) Negative Normal NEGATIVE [facility] Comment on above: Performed By: #### P OCGLUC #### [facility] [address] [address] [address] Jag Waldrop Hemoglobin Ql (U) Negative Normal NEGATIVE [facility] Comment on above: Performed By: #### P OCGLUC #### [facility] [address] [place] [address] Dr. Jag Waldrop Ketones Ql (U) Negative Normal NEGATIVE [facility] Comment on above: Performed By: #### P OCGLUC #### [facility] [address] [address] [address] Jag Waldrop LEUKOCYTES Negative Normal NEGATIVE [facility] Comment on above: Performed By: #### P OCGLUC #### [facility] [address] [address] [address] Jag Waldrop Nitrite Ql (U) Negative Normal NEGATIVE [facility] Comment on above: Performed By: #### P OCGLUC #### [facility] [address] [address] [address] Jag Waldrop pH (U) 5.5 [pH] Normal 5-9 [facility] Comment on above: Performed By: #### P OCGLUC #### [facility] [address] [address] [address] Jag Waldrop SPEC GRAVITY 1.020 Normal 1.005-<=1.0 25 [facility] Comment on above: Performed By: #### P OCGLUC #### [facility] [facility] [address] [address] [address] Jag Waldrop UA PROTEIN Negative Normal NEGATIVE/ TRACE [facility] Comment on above: Performed By: #### P OCGLUC #### [facility] [address] [place] [address] Dr. Jag Waldrop UR MICRO IND NOT INDICATED Normal [facility] Comment on above: Performed By: #### P OCGLUC #### [facility] [address] [place] [address] Dr. Jag Waldrop Urobilinogen Qn (U) 0.2 {Chris'U}/dL Normal 0.2 - 1. 0 [facility] Comment on above: Performed By: #### P OCGLUC #### [facility] [address] [place] [address] Dr. Jag Waldrop PROF CHEM 8 (BAS METB)on Anion gap [Moles/Vol] 10.8 mmol/L Normal [facility] Comment on above: Performed By: #### E RUR #### [facility] [address] [place] [address] Dr. Jag Waldrop Calcium [Mass/Vol] 9.0 mg/dL Normal 8.5-10.1 [facility] Comment on above: Performed By: #### E RUR #### [facility] [address] [place] [address] Dr. Jag Waldrop Chloride [Moles/Vol] 106 mmol/L Normal 98-107 [facility] Comment on above: Performed By: #### E RUR #### [facility] [address] [place] [address] Dr. Jag Waldrop CO2 [Moles/Vol] 28.1 mmol/L Normal 21.0-32.0 [facility] Comment on above: Performed By: #### E RUR #### [facility] [address] [place] [address] Dr. Jag Waldrop Creatinine [Mass/Vol] 1.06 mg/dL Critically high 0.55-1.02 [facility] Comment on above: Performed By: #### E RUR #### [facility] [address] [place] [address] Dr. Jag Waldrop EGFR-AF SIERRA LEONEAN >60 Normal >=60 [facility] Comment on above: Performed By: #### E RUR #### [facility] [address] [address] [address] Jag Waldrop EGFR-NON AF SIERRA LEONEAN 55 mL/min/1.73m2 Critically low >=60 [facility] Comment on above: Performed By: #### E RUR #### [facility] [address] [address] [address] Jag Waldrop Glucose [Mass/Vol] 89 mg/dL Normal 74-106 [facility] Comment on above: Performed By: #### E RUR #### [facility] [address] [address] [address] Jag Waldrop Potassium [Moles/Vol] 3.9 mmol/L Normal 3.5-5.1 [facility] Comment on above: Performed By: #### E RUR #### [facility] [address] [address] [address] Jag Waldrop Sodium [Moles/Vol] 141 mmol/L Normal 136-145 [facility] Comment on above: Performed By: #### E RUR #### [facility] [address] [address] [address] Jag Waldrop Urea nitrogen [Mass/Vol] 19.0 mg/dL Critically high 7.0-18.0 [facility] Comment on above: Performed By: #### E RUR #### [facility] [address] [address] [address] Jag Waldrop Urea nitrogen/Creatinine [Mass ratio] 17.9 mg/mg Normal [facility] Comment on above: Performed By: #### E RUR #### [facility] [address] [address] [address] Jag Waldrop SED RATE [facility] 2021 SED RATE 19 mm/hr Normal <=30 [facility] Comment on above: Performed By: #### L IPID, BMP #### [facility] [address] [address] [address] Jag Waldrop PROF CHEM 8 (BAS METB)on Anion gap [Moles/Vol] 17.3 mmol/L Normal [facility] Comment on above: Performed By: #### L IPID, BMP #### [facility] [address] [place] [address] Dr. Jag Waldrop Calcium [Mass/Vol] 9.2 mg/dL Normal 8.5-10.1 [facility] Comment on above: Performed By: #### L IPID, BMP #### [facility] [address] [place] [address] Dr. Jag Waldrop Chloride [Moles/Vol] 108 mmol/L Critically high 98-107 [facility] Comment on above: Performed By: #### L IPID, BMP #### [facility] [address] [place] [address] Dr. Jag Waldrop CO2 [Moles/Vol] 20.0 mmol/L Critically low 21.0-32.0 [facility] Comment on above: Performed By: #### L IPID, BMP #### [facility] [address] [place] [address] Dr. Jag Waldrop Creatinine [Mass/Vol] 1.40 mg/dL Critically high 0.55-1.02 [facility] Comment on above: Performed By: #### L IPID, BMP #### [facility] [address] [place] [address] Dr. Jag Waldrop EGFR-AF SIERRA LEONEAN 48 mL/min/1.73m2 Critically low >=60 [facility] Comment on above: Performed By: #### L IPID, BMP #### [facility] [address] [place] [address] Dr. Jag Waldrop EGFR-NON AF SIERRA LEONEAN 40 mL/min/1.73m2 Critically low >=60 [facility] Comment on above: Performed By: #### L IPID, BMP #### [facility] [address] [place] [address] Dr. Jag Waldrop Glucose [Mass/Vol] 126 mg/dL Critically high 74-106 [facility] Comment on above: Performed By: #### L IPID, BMP #### [facility] [address] [place] [address] Dr. Jag Waldrop Potassium [Moles/Vol] 5.3 mmol/L Critically high 3.5-5.1 [facility] Comment on above: Performed By: #### L IPID, BMP #### [facility] [address] [place] [address] Dr. Jag Waldrop Sodium [Moles/Vol] 140 mmol/L Normal 136-145 [facility] Comment on above: Performed By: #### L IPID, BMP #### [facility] [address] [place] [address] Dr. Jag Waldrop Urea nitrogen [Mass/Vol] 31.0 mg/dL Critically high 7.0-18.0 [facility] Comment on above: Performed By: #### L IPID, BMP #### [facility] [address] [place] [address] Dr. Jag Waldrop Urea nitrogen/Creatinine [Mass ratio] 22.1 mg/mg Normal [facility] Comment on above: Performed By: #### L IPID, BMP #### [facility] [address] [place] [address] Dr. Jag Waldrop CBC AUTO DIFFon 01-23-2022 BASO # 0.1 103/ul Normal 0.0-0.1 [facility] Comment on above: Performed By: #### C BC #### [facility] [address] [place] [address] Dr. Jag Waldrop Basophils/100 WBC (Bld) 1.0 % Normal 0.2-2.0 [facility] Comment on above: Performed By: #### C BC #### [facility] [address] [place] [address] Dr. Jag Waldrop EO # 0.2 103/ul Normal 0.0-0.7 [facility] Comment on above: Performed By: #### C BC #### [facility] [address] [place] [address] Dr. Jag Waldrop Eosinophils/100 WBC (Bld) 3.3 % Normal 0.9-7.0 [facility] Comment on above: Performed By: #### C BC #### [facility] [address] [place] [address] Dr. Jag Waldrop Erythrocyte distribution width (RBC) [Ratio] 13.2 % Normal 11.0-15.0 [facility] Comment on above: Performed By: #### C BC #### [facility] [address] [place] [address] Dr. Jag Waldrop Hematocrit (Bld) [Volume fraction] 35.6 % Critically low 36.0-48.0 [facility] Comment on above: Performed By: #### C BC #### [facility] [address] [place] [address] Dr. Jag Waldrop Hemoglobin (Bld) [Mass/Vol] 10.6 g/dL Critically low 12.0-16.0 [facility] Comment on above: Performed By: #### C BC #### [facility] [address] [place] [address] Dr. Jag Waldrop IG # 0.01 10e3/ul Normal 0.00-0.03 [facility] Comment on above: Performed By: #### C BC #### [facility] [address] [place] [address] Dr. Jag Waldrop IG % 0.2 % Normal 0.0-0.5 [facility] Comment on above: Performed By: #### C BC #### [facility] [address] [place] [address] Dr. Jag Waldrop LYMPH # 1.7 103/ul Normal 1.2-3.8 [facility] Comment on above: Performed By: #### C BC #### [facility] [address] [place] [address] Dr. Jag Waldrop Lymphocytes/100 WBC (Bld) 35.4 % Normal 20.5-60.0 [facility] Comment on above: Performed By: #### C BC #### [facility] [address] [place] [address] Dr. Jag Waldrop MANUAL DIFF REQ NO Normal [facility] Comment on above: Performed By: #### C BC #### [facility] [address] [place] [address] Dr. Jag Waldrop MCH (RBC) [Entitic mass] 29.0 pg Normal 26.7-34.0 [facility] Comment on above: Performed By: #### C BC #### [facility] [address] [place] [address] Dr. Jag Waldrop MCHC (RBC) [Mass/Vol] 29.8 g/dL Critically low 29.9-35.2 [facility] Comment on above: Performed By: #### C BC #### [facility] [address] [place] [address] Dr. Jag Waldrop MCV (RBC) [Entitic vol] 97.3 fL Normal 81.0-99.0 [facility] Comment on above: Performed By: #### C BC #### [facility] [address] [place] [address] Dr. Jag Waldrop MONO # 0.3 103/ul Normal 0.3-0.8 [facility] Comment on above: Performed By: #### C BC #### [facility] [address] [place] [address] Dr. Jag Waldrop Monocytes/100 WBC (Bld) 6.8 % Normal 1.7-12.0 [facility] Comment on above: Performed By: #### C BC #### [facility] [address] [place] [address] Dr. Jag Waldrop NEUT # 2.6 103/ul Normal 1.4-6.5 [facility] Comment on above: Performed By: #### C BC #### [facility] [address] [place] [address] Dr. Jag Waldrop Neutrophils/100 WBC (Bld) 53.3 % Normal 43.0-75.0 [facility] Comment on above: Performed By: #### C BC #### [facility] [address] [place] [address] Dr. Jag Waldrop Platelet mean volume (Bld) [Entitic vol] 11.0 fL Normal 9.5-13.5 [facility] Comment on above: Performed By: #### C BC #### [facility] [address] [place] [address] Dr. Jag Waldrop PLT 230 103/ul Normal 150-450 [facility] Comment on above: Performed By: #### C BC #### [facility] [address] [place] [address] Dr. Jag Waldrop RBC 3.66 106/ul Critically low 4.20-5.40 [facility] Comment on above: Performed By: #### C BC #### [facility] [address] [place] [address] Dr. Jag Waldrop WBC 4.8 103/ul Normal 4.0-11.0 [facility] Comment on above: Performed By: #### C BC #### [facility] [address] [place] [address] Dr. Jag Waldrop FERRITINon 01-23-2022 Ferritin [Mass/Vol] 35.0 ng/mL Normal 8.0-252.0 [facility] Comment on above: Performed By: #### L IPID, BMP #### [facility] [address] [place] [address] Dr. Jag Waldrop IRONon 01-23-2022 Iron [Mass/Vol] 71.0 ug/dL Normal 50.0-170.0 [facility] Comment on above: Performed By: #### L IPID, BMP #### [facility] [address] [place] [address] Dr. Jag Waldrop LIPID PROFILEon 01-23-2022 CHOL-HDL RATIO NORM SEE BELOW Normal [facility] Comment on above: Result Comment: 3.3 - 4.4 LOW RISK 4.4 - 7.1 AVERAGE RISK 7.1 - 11.0 MODERATE RISK >11.0 HIGH RISK Performed By: #### L IPID, BMP #### [facility] [address] [place] [address] Dr. Jag Waldrop Cholesterol [Mass/Vol] 133 mg/dL Normal <=200 [facility] Comment on above: Performed By: #### L IPID, BMP #### [facility] [address] [place] [address] Dr. Jag Waldrop Cholesterol in HDL [Mass/Vol] 41 mg/dL Normal 40-60 [facility] Comment on above: Performed By: #### L IPID, BMP #### [facility] [address] [place] [address] Dr. Jag Waldrop Cholesterol in LDL [Mass/Vol] 70.8 mg/dL Normal [facility] Comment on above: Performed By: #### L IPID, BMP #### [facility] [address] [place] [address] Dr. Jag Waldrop Cholesterol.total/Chol esterol in HDL [Mass ratio] 3.2 {ratio} Normal [facility] Comment on above: Performed By: #### L IPID, BMP #### [facility] [address] [place] [address] Dr. Jag Waldrop HDL NORMAL > or = 60 mg/dl - LO W CARDIOVASCULAR RISK <40 mg/dl - HIGH CARDIOVASCULAR RISK Normal [facility] Comment on above: Performed By: #### L IPID, BMP #### [facility] [address] [place] [address] Dr. Jag Waldrop LDL CALC NORMAL SEE BELOW Normal [facility] Comment on above: Result Comment: <100 mg/dl OPTIMAL 100 - 129 mg/dl NEAR OR ABOVE OPTIMAL 130 - 159 mg/dl BORDERLINE HIGH 160 - 189 mg/dl HIGH >190 mg/dl VERY HIGH Performed By: #### L IPID, BMP #### [facility] [address] [place] [address] Dr. Jag Waldrop Triglyceride [Mass/Vol] 106 mg/dL Normal <=150 [facility] Comment on above: Performed By: #### L IPID, BMP #### [facility] [address] [place] [address] Dr. Jag Waldrop VLDL CALC 21.2 mg/dL Normal [facility] Comment on above: Performed By: #### L IPID, BMP #### [facility] [address] [place] [address] Dr. Jag Waldrop PROF CHEM 8 (BAS METB)on Anion gap [Moles/Vol] 18.2 mmol/L Normal [facility] Comment on above: Performed By: #### L IPID, BMP #### [facility] [address] [address] [address] Jag Waldrop Calcium [Mass/Vol] 9.3 mg/dL Normal 8.5-10.1 [facility] Comment on above: Performed By: #### L IPID, BMP #### [facility] [address] [place] [address] Dr. Jag Waldrop Chloride [Moles/Vol] 111 mmol/L Critically high 98-107 [facility] Comment on above: Performed By: #### L IPID, BMP #### [facility] [address] [place] [address] Dr. Jag Waldrop CO2 [Moles/Vol] 19.9 mmol/L Critically low 21.0-32.0 [facility] Comment on above: Performed By: #### L IPID, BMP #### [facility] [address] [place] [address] Dr. Jag Waldrop Creatinine [Mass/Vol] 1.27 mg/dL Critically high 0.55-1.02 [facility] Comment on above: Performed By: #### L IPID, BMP #### [facility] [address] [place] [address] Dr. Jag Waldrop EGFR-AF SIERRA LEONEAN 54 mL/min/1.73m2 Critically low >=60 [facility] Comment on above: Performed By: #### L IPID, BMP #### [facility] [address] [place] [address] Dr. Jag Waldrop EGFR-NON AF SIERRA LEONEAN 44 mL/min/1.73m2 Critically low >=60 [facility] Comment on above: Performed By: #### L IPID, BMP #### [facility] [address] [place] [address] Dr. Jag Waldrop Glucose [Mass/Vol] 129 mg/dL Critically high 74-106 [facility] Comment on above: Performed By: #### L IPID, BMP #### [facility] [address] [place] [address] Dr. Jag Waldrop Potassium [Moles/Vol] 6.1 mmol/L Critically high 3.5-5.1 [facility] Comment on above: Performed By: #### L IPID, BMP #### [facility] [address] [place] [address] Dr. Jag Waldrop Sodium [Moles/Vol] 142 mmol/L Normal 136-145 [facility] Comment on above: Performed By: #### L IPID, BMP #### [facility] [address] [place] [address] Dr. Jag Waldrop Urea nitrogen [Mass/Vol] 35.0 mg/dL Critically high 7.0-18.0 [facility] Comment on above: Performed By: #### L IPID, BMP #### [facility] [address] [place] [address] Dr. Jag Waldrop Urea nitrogen/Creatinine [Mass ratio] 27.6 mg/mg Normal [facility] Comment on above: Performed By: #### L IPID, BMP #### [facility] [address] [place] [address] Dr. Jag Waldrop VITAMIN B12on 01-23-2022 Cobalamin (Vitamin B12) [Mass/Vol] 267.0 pg/mL Normal 193.0-986.0 [facility] Comment on above: Performed By: #### L IPID, BMP #### [facility] [address] [place] [address] Dr. Jag Waldrop XR CSPINE 2_3 VIEWSon [...] KATHY LOBATO Date: 2022-01-12 09:39 Normal [facility] BNPon 12-21-2021 Natriuretic peptide B (Bld) [Mass/Vol] 283.0 pg/mL Normal <=900.0 [facility] Comment on above: Performed By: #### P OCGLUC #### [facility] [address] [place] [address] Dr. Jag Waldrop CBC AUTO DIFFon 12-21-2021 BASO # 0.1 103/ul Normal 0.0-0.1 [facility] Comment on above: Performed By: #### L IPID, BMP #### [facility] [address] [place] [address] Dr. Jag Waldrop Basophils/100 WBC (Bld) 0.8 % Normal 0.2-2.0 [facility] Comment on above: Performed By: #### L IPID, BMP #### [facility] [address] [place] [address] Dr. Jag Waldrop EO # 0.3 103/ul Normal 0.0-0.7 [facility] Comment on above: Performed By: #### L IPID, BMP #### [facility] [address] [place] [address] Dr. Jag Waldrop Eosinophils/100 WBC (Bld) 3.8 % Normal 0.9-7.0 [facility] Comment on above: Performed By: #### L IPID, BMP #### [facility] [address] [place] [address] Dr. Jag Waldrop Erythrocyte distribution width (RBC) [Ratio] 13.2 % Normal 11.0-15.0 [facility] Comment on above: Performed By: #### L IPID, BMP #### [facility] [address] [place] [address] Dr. Jag Waldrop Hematocrit (Bld) [Volume fraction] 34.8 % Critically low 36.0-48.0 [facility] Comment on above: Performed By: #### L IPID, BMP #### [facility] [address] [place] [address] Dr. Jag Waldrop Hemoglobin (Bld) [Mass/Vol] 10.6 g/dL Critically low 12.0-16.0 [facility] Comment on above: Performed By: #### L IPID, BMP #### [facility] [address] [place] [address] Dr. Jag Waldrop IG # 0.02 10e3/ul Normal 0.00-0.03 [facility] Comment on above: Performed By: #### L IPID, BMP #### [facility] [address] [place] [address] Dr. Jag Waldrop IG % 0.3 % Normal 0.0-0.5 [facility] Comment on above: Performed By: #### L IPID, BMP #### [facility] [address] [place] [address] Dr. Jag Waldrop LYMPH # 1.7 103/ul Normal 1.2-3.8 [facility] Comment on above: Performed By: #### L IPID, BMP #### [facility] [address] [place] [address] Dr. Jag Waldrop Lymphocytes/100 WBC (Bld) 23.8 % Normal 20.5-60.0 [facility] Comment on above: Performed By: #### L IPID, BMP #### [facility] [address] [place] [address] Dr. Jag Waldrop MANUAL DIFF REQ NO Normal [facility] Comment on above: Performed By: #### L IPID, BMP #### [facility] [address] [place] [address] Dr. Jag Waldrop MCH (RBC) [Entitic mass] 29.1 pg Normal 26.7-34.0 [facility] Comment on above: Performed By: #### L IPID, BMP #### [facility] [address] [place] [address] Dr. Jag Waldrop MCHC (RBC) [Mass/Vol] 30.5 g/dL Normal 29.9-35.2 [facility] Comment on above: Performed By: #### L IPID, BMP #### [facility] [address] [place] [address] Dr. Jag Waldrop MCV (RBC) [Entitic vol] 95.6 fL Normal 81.0-99.0 [facility] Comment on above: Performed By: #### L IPID, BMP #### [facility] [address] [place] [address] Dr. Jag Waldrop MONO # 0.7 103/ul Normal 0.3-0.8 [facility] Comment on above: Performed By: #### L IPID, BMP #### [facility] [address] [place] [address] Dr. Jag Waldrop Monocytes/100 WBC (Bld) 9.3 % Normal 1.7-12.0 [facility] Comment on above: Performed By: #### L IPID, BMP #### [facility] [address] [place] [address] Dr. Jag Waldrop NEUT # 4.4 103/ul Normal 1.4-6.5 [facility] Comment on above: Performed By: #### L IPID, BMP #### [facility] [address] [place] [address] Dr. Jag Waldrop Neutrophils/100 WBC (Bld) 62.0 % Normal 43.0-75.0 [facility] Comment on above: Performed By: #### L IPID, BMP #### [facility] [address] [place] [address] Dr. Jag Waldrop Platelet mean volume (Bld) [Entitic vol] 11.5 fL Normal 9.5-13.5 [facility] Comment on above: Performed By: #### L IPID, BMP #### [facility] [address] [place] [address] Dr. Jag Waldrop PLT 235 103/ul Normal 150-450 [facility] Comment on above: Performed By: #### L IPID, BMP #### [facility] [address] [place] [address] Dr. Jag Waldrop RBC 3.64 106/ul Critically low 4.20-5.40 [facility] Comment on above: Performed By: #### L IPID, BMP #### [facility] [address] [place] [address] Dr. Jag Waldrop WBC 7.1 103/ul Normal 4.0-11.0 [facility] Comment on above: Performed By: #### L IPID BMP #### [facility] [address] [place] [address] Dr. Jag Waldrop CRPon 12-21-2021 CRP 1.1 mg/dL Critically high <=1.0 [facility] Comment on above: Performed By: #### B MP #### [facility] [address] [place] [address] Dr. Jag Waldrop Covid-19 PCR ([facility])on SARS-CoV-2 (COVID-19) RNA PRINCE+probe Ql (Unsp spec) Not detected Normal NOT DETECTED [facility] Comment on above: Result Comment: This test is not yet approved or cleared by the [place] FDA. When there are no FDA-approved or cleared tests available, and other criteria are met, FDA can make tests available under an emergency access mechanism called an Emergency Use Authorization (EUA). The EUA for this test is supported by the [place] of Health and Human Service's (HHS's) declaration [...] consistent with SARS-CoV-2. Performed By: #### L TESHA BMP #### [facility] [address] [place] [address] Dr. Jag Waldrop PROF CHEM 8 (BAS METB)on Anion gap [Moles/Vol] 13.3 mmol/L Normal Th [facility] Comment on above: Performed By: #### B MP #### [facility] [address] [place] [address] Dr. Jag Waldrop Calcium [Mass/Vol] 8.7 mg/dL Normal 8.5-10.1 [facility] Comment on above: Performed By: #### B MP #### [facility] [address] [address] [address] Jag Waldrop Chloride [Moles/Vol] 107 mmol/L Normal 98-107 [facility] Comment on above: Performed By: #### B MP #### [facility] [address] [address] [address] Jag Waldrop CO2 [Moles/Vol] 23.2 mmol/L Normal 21.0-32.0 [facility] Comment on above: Performed By: #### B MP #### [facility] [address] [place] [address] Dr. Jag Waldrop Creatinine [Mass/Vol] 1.55 mg/dL Critically high 0.55-1.02 [facility] Comment on above: Performed By: #### B MP #### [facility] [address] [place] [address] Dr. Jag Waldrop EGFR-AF SIERRA LEONEAN 43 mL/min/1.73m2 Critically low >=60 [facility] Comment on above: Performed By: #### B MP #### [facility] [address] [place] [address] Dr. Jag Waldrop EGFR-NON AF SIERRA LEONEAN 35 mL/min/1.73m2 Critically low >=60 [facility] Comment on above: Performed By: #### B MP #### [facility] [address] [address] [address] Jag Waldrop Glucose [Mass/Vol] 123 mg/dL Critically high 74-106 [facility] Comment on above: Performed By: #### B MP #### [facility] [address] [place] [address] Dr. Jag Waldrop Potassium [Moles/Vol] 4.5 mmol/L Normal 3.5-5.1 [facility] Comment on above: Performed By: #### B MP #### [facility] [address] [place] [address] Dr. Jag Waldrop Sodium [Moles/Vol] 139 mmol/L Normal 136-145 [facility] Comment on above: Performed By: #### B MP #### [facility] [address] [address] [address] Jag Waldrop Urea nitrogen [Mass/Vol] 36.0 mg/dL Critically high 7.0-18.0 [facility] Comment on above: Performed By: #### B MP #### [facility] [address] [place] [address] Dr. Jag Waldrop Urea nitrogen/Creatinine [Mass ratio] 23.2 mg/mg Normal [facility] Comment on above: Performed By: #### B MP #### [facility] [address] [place] [address] Dr. Jag Waldrop SED RATE WESTERGRENon 2021 SED RATE 26 mm/hr Normal <=30 [facility] Comment on above: Performed By: #### S EDR #### [facility] [address] [place] [address] Dr. Jag Waldrop XR CHEST 2 Von [...] ALEX ALLEN Date: 2021-12-21 18:35 Normal [facility] OVA AND PARASITE EXAMINATION on 12-06-2021 Ova + Parasite Exam Final report Normal [facility] Comment on above: Result Comment: Thes e results were obtained using wet preparation(s) and trichrome stained smear. This test does not include testing for Cryptosporidium parvum, Cyclospora, or Microsporidia. Performed By: #### L IPID, BMP #### [facility] [address] [place] [address] Dr. Jag Waldrop Result 1 Comment Normal [facility] Comment on above: Result Comment: No o va, cysts, or parasites seen. . One negative specimen does not rule out the possibility of a parasitic infection. Performed By: #### L IPID, BMP #### [facility] [address] [place] [address] Dr. Jag Waldrop STOOL CULTUREon 12-05-2021 Campylobacter Culture Final report Normal T [facility] Comment on above: Performed By: #### C XSTOOL #### [facility] [address] [place] [address] Dr. Jag Waldrop E coli Shiga Toxin EIA Negative Normal Negative [facility] Comment on above: Performed By: #### C XSTOOL #### [facility] [address] [place] [address] Dr. Jag Waldrop Result 1 Comment Normal [facility] Comment on above: Result Comment: No S almonella or Shigella recovered. Performed By: #### C XSTOOL #### [facility] [address] [place] [address] Dr. Jag Waldrop Result Comment: No C ampylobacter species isolated. Salmonella/Shigella Screen Final report Normal [facility] Comment on above: Performed By: #### C XSTOOL #### [facility] [address] [place] [address] Dr. Jag Waldrop GI PANEL (PCR)on 11-30-2021 Adenovirus F 40/41 Not detected Normal NOT DETECTED [facility] Comment on above: Performed By: #### E RUR #### [facility] [address] [place] [address] Dr. Jag Waldrop Astrovirus Not detected Normal NOT DETECTED [facility] Comment on above: Performed By: #### E RUR #### [facility] [address] [place] [address] Dr. Jag Waldrop C. Diff toxin A/B Detected Critically abnormal NOT DETECTED [facility] Comment on above: Performed By: #### E RUR #### [facility] [address] [place] [address] Dr. Jag Waldrop Campylobacter Not detected Normal NOT DETECTED [facility] Comment on above: Performed By: #### E RUR #### [facility] [address] [place] [address] Dr. Jag Waldrop Cryptosporidium Not detected Normal NOT DETECTED [facility] Comment on above: Performed By: #### E RUR #### [facility] [address] [place] [address] Dr. Jag Waldrop Cyclos. Cayetanensis Not detected Normal NOT DETECTED [facility] Comment on above: Performed By: #### E RUR #### [facility] [address] [place] [address] Dr. Jag Waldrop E. Coli O157 Not Applicable Normal Not Applicable [facility] Comment on above: Performed By: #### E RUR #### [facility] [address] [place] [address] Dr. Jag Waldrop E. histolytica Not detected Normal NOT DETECTED [facility] Comment on above: Performed By: #### E RUR #### [facility] [address] [place] [address] Dr. Jag Waldrop EAEC Not detected Normal NOT DETECTED [facility] Comment on above: Performed By: #### E RUR #### [facility] [address] [place] [address] Dr. Jag Waldrop EIEC Not detected Normal NOT DETECTED [facility] Comment on above: Performed By: #### E RUR #### [facility] [address] [place] [address] Dr. Jag Waldrop EPEC Not detected Normal NOT DETECTED [facility] Comment on above: Performed By: #### E RUR #### [facility] [address] [place] [address] Dr. Jag Waldrop ETEC Not detected Normal NOT DETECTED [facility] Comment on above: Performed By: #### E RUR #### [facility] [address] [place] [address] Dr. Jag Waldrop G. Lamblia Not detected Normal NOT DETECTED [facility] Comment on above: Performed By: #### E RUR #### [facility] [address] [place] [address] Dr. Yilan Waldrop GIPANEL CONTROLS PASSED Normal [facility] Comment on above: Performed By: #### E RUR #### [facility] [address] [address] [address] Jag TEJEDA HEADER GI PANEL BACTERIA Normal T [facility] Comment on above: Performed By: #### E RUR #### [facility] [address] [address] [address] Jag SANCHEZ ECOLI GI PANEL DIARRHEAGEN IC E.COLI / SHIGELLA Normal [facility] Comment on above: Performed By: #### E RUR #### [facility] [address] [place] [address] Dr. Jag SANCHEZ INFO SEE BELOW Normal [facility] Comment on above: Result Comment: EAEC - Enteroaggregative E. Coli EPEC- Enteropathogenic E. Coli ETEC- Enterotoxigenic E. Coli lt/st STEC- Shigella-like toxin-producing E. Coli stx1/stx2 EIEC- Shigella/Enteroinvasive E. Coli Performed By: #### E RUR #### [facility] [address] [place] [address] Dr. Jag SANCHEZ PARASITES GI PANEL PARASITES Normal [facility] Comment on above: Performed By: #### E RUR #### [facility] [address] [place] [address] Dr. Jag SANCHEZ VIRUS GI PANEL VIRUSES Normal [facility] Comment on above: Performed By: #### E RUR #### [facility] [address] [address] [address] Jag Waldrop Norovirus GI/GII Not detected Normal NOT DETECTED [facility] Comment on above: Performed By: #### E RUR #### [facility] [address] [place] [address] Dr. Jag Waldrop P. Shigelloides Not detected Normal NOT DETECTED [facility] Comment on above: Performed By: #### E RUR #### [facility] [address] [place] [address] Dr. Jag Waldrop Rotavirus A Not detected Normal NOT DETECTED [facility] Comment on above: Performed By: #### E RUR #### [facility] [address] [place] [address] Dr. Jag Waldrop Salmonella Not detected Normal NOT DETECTED [facility] Comment on above: Performed By: #### E RUR #### [facility] [address] [place] [address] Dr. Jag Waldrop Sapovirus Not detected Normal NOT DETECTED [facility] Comment on above: Performed By: #### E RUR #### [facility] [address] [place] [address] Dr. Jag Waldrop STEC Not detected Normal NOT DETECTED [facility] Comment on above: Performed By: #### E RUR #### [facility] [address] [place] [address] Dr. Jag Waldrop Vibrio Not detected Normal NOT DETECTED [facility] Comment on above: Performed By: #### E RUR #### [facility] [address] [place] [address] Dr. Jag Waldrop Vibrio Cholera Not detected Normal NOT DETECTED [facility] Comment on above: Performed By: #### E RUR #### [facility] [address] [place] [address] Dr. Jag Waldrop Y. Enterocolitica Not detected Normal NOT DETECTED [facility] Comment on above: Performed By: #### E RUR #### [facility] [address] [place] [address] Dr. Jag Waldrop OCC BLD IMMUNO SCREENon 11-14 OCCULT BLOOD Negative Normal NEGATIVE [facility] Comment on above: Performed By: #### L IPID, BMP #### [facility] [address] [place] [address] Dr. Jag Waldrop PROF CHEM 8 (BAS METB)on Anion gap [Moles/Vol] 15.5 mmol/L Normal [facility] Comment on above: Performed By: #### P OCGLUC #### [facility] [address] [place] [address] Dr. Jag Waldrop Calcium [Mass/Vol] 9.1 mg/dL Normal 8.5-10.1 [facility] Comment on above: Performed By: #### P OCGLUC #### [facility] [address] [address] [address] Jag Waldrop Chloride [Moles/Vol] 106 mmol/L Normal 98-107 [facility] Comment on above: Performed By: #### P OCGLUC #### [facility] [address] [address] [address] Jag Waldrop CO2 [Moles/Vol] 25.4 mmol/L Normal 21.0-32.0 [facility] Comment on above: Performed By: #### P OCGLUC #### [facility] [address] [address] [address] Jag Waldrop Creatinine [Mass/Vol] 1.18 mg/dL Critically high 0.55-1.02 [facility] Comment on above: Performed By: #### P OCGLUC #### [facility] [address] [address] [address] Jag Waldrop EGFR-AF SIERRA LEONEAN 59 mL/min/1.73m2 Critically low >=60 [facility] Comment on above: Performed By: #### P OCGLUC #### [facility] [address] [address] [address] Jag Waldrop EGFR-NON AF SIERRA LEONEAN 48 mL/min/1.73m2 Critically low >=60 [facility] Comment on above: Performed By: #### P OCGLUC #### [facility] [address] [address] [address] Jag Waldrop Glucose [Mass/Vol] 141 mg/dL Critically high 74-106 [facility] Comment on above: Performed By: #### P OCGLUC #### [facility] [address] [address] [address] Jag Waldrop Potassium [Moles/Vol] 3.9 mmol/L Normal 3.5-5.1 [facility] Comment on above: Performed By: #### P OCGLUC #### [facility] [address] [address] [address] Jag Waldrop Sodium [Moles/Vol] 143 mmol/L Normal 136-145 [facility] Comment on above: Performed By: #### P OCGLUC #### [facility] [address] [address] [address] Jag Waldrop Urea nitrogen [Mass/Vol] 22.0 mg/dL Critically high 7.0-18.0 [facility] Comment on above: Performed By: #### P OCGLUC #### [facility] [address] [address] [address] Jag Waldrop Urea nitrogen/Creatinine [Mass ratio] 18.6 mg/mg Normal [facility] Comment on above: Performed By: #### P OCGLUC #### [facility] [address] [address] [address] Jag Waldrop XR KUB 1 VIEWon [...] by: ALEX ALLEN Date: 2021-10-29 09:01 Normal [facility] CULTURE URINEon 10-28-2021 CULTURE URINE Culture Observations : LIGHT GROWTH OF MIXED GENITAL SANDEE. NO POTENTIAL PATHOGENS SEEN. Normal [facility] Comment on above: Performed By: #### E RUR #### [facility] [address] [address] [address] Jag Waldrop GLYCOHEMOGLOBIN A1Con 2021 ADA RECOMMENDATION SEE BELOW Normal [facility] Comment on above: Result Comment: ADA RECOMMENDED LIMIT 4.0 - 6.0 ADA THERAPEUTIC TARGET < 7.0 ACTION SUGGESTED > 7.0 Performed By: #### E RUR #### [facility] [address] [address] [address] Jag Waldrop Glucose [Mass/Vol] 157 mg/dL Normal [facility] Comment on above: Performed By: #### E RUR #### [facility] [address] [address] [address] Jag Waldrop HbA1c (Bld) [Mass fraction] 7.1 % Critically high 4.5-6.2 [facility] Comment on above: Performed By: #### E RUR #### [facility] [address] [address] [address] Jag Waldrop LIPID PROFILEon 10-28-2021 CHOL-HDL RATIO NORM SEE BELOW Normal [facility] Comment on above: Result Comment: 3.3 - 4.4 LOW RISK 4.4 - 7.1 AVERAGE RISK 7.1 - 11.0 MODERATE RISK >11.0 HIGH RISK Performed By: #### P OCGLUC #### [facility] [address] [place] [address] Dr. Jag Waldrop Cholesterol [Mass/Vol] 150 mg/dL Normal <=200 [facility] Comment on above: Performed By: #### P OCGLUC #### [facility] [address] [place] [address] Dr. Jag Waldrop Cholesterol in HDL [Mass/Vol] 39 mg/dL Critically low 40-60 [facility] Comment on above: Performed By: #### P OCGLUC #### [facility] [address] [place] [address] Dr. Jag Waldrop Cholesterol in LDL [Mass/Vol] 82.6 mg/dL Normal [facility] Comment on above: Performed By: #### P OCGLUC #### [facility] [address] [place] [address] Dr. Jag Waldrop Cholesterol.total/Chol esterol in HDL [Mass ratio] 3.8 {ratio} Normal [facility] Comment on above: Performed By: #### P OCGLUC #### [facility] [address] [place] [address] Dr. Jag Waldrop HDL NORMAL > or = 60 mg/dl - LO W CARDIOVASCULAR RISK <40 mg/dl - HIGH CARDIOVASCULAR RISK Normal [facility] Comment on above: Performed By: #### P OCGLUC #### [facility] [address] [place] [address] Dr. Jag Waldrop LDL CALC NORMAL SEE BELOW Normal [facility] Comment on above: Result Comment: <100 mg/dl OPTIMAL 100 - 129 mg/dl NEAR OR ABOVE OPTIMAL 130 - 159 mg/dl BORDERLINE HIGH 160 - 189 mg/dl HIGH >190 mg/dl VERY HIGH Performed By: #### P OCGLUC #### [facility] [address] [address] [address] Jag Waldrop Triglyceride [Mass/Vol] 142 mg/dL Normal <=150 [facility] Comment on above: Performed By: #### P OCGLUC #### [facility] [address] [address] [address] Jag Waldrop VLDL CALC 28.4 mg/dL Normal [facility] Comment on above: Performed By: #### P OCGLUC #### [facility] [address] [place] [address] Dr. Jag Waldrop PROF CHEM 8 (BAS METB)on Anion gap [Moles/Vol] 16.0 mmol/L Normal [facility] Comment on above: Performed By: #### P OCGLUC #### [facility] [address] [address] [address] Jag Waldrop Calcium [Mass/Vol] 8.7 mg/dL Normal 8.5-10.1 [facility] Comment on above: Performed By: #### P OCGLUC #### [facility] [address] [address] [address] Jag Waldrop Chloride [Moles/Vol] 108 mmol/L Critically high 98-107 [facility] Comment on above: Performed By: #### P OCGLUC #### [facility] [address] [address] [address] Jag Waldrop CO2 [Moles/Vol] 22.1 mmol/L Normal 21.0-32.0 [facility] Comment on above: Performed By: #### P OCGLUC #### [facility] [address] [address] [address] Jag Waldrop Creatinine [Mass/Vol] 1.72 mg/dL Critically high 0.55-1.02 [facility] Comment on above: Performed By: #### P OCGLUC #### [facility] [address] [address] [address] Jag Waldrop EGFR-AF SIERRA LEONEAN 38 mL/min/1.73m2 Critically low >=60 [facility] Comment on above: Performed By: #### P OCGLUC #### [facility] [address] [address] [address] Jag Waldrop EGFR-NON AF SIERRA LEONEAN 31 mL/min/1.73m2 Critically low >=60 [facility] Comment on above: Performed By: #### P OCGLUC #### [facility] [address] [address] [address] Jag Waldrop Glucose [Mass/Vol] 144 mg/dL Critically high 74-106 [facility] Comment on above: Performed By: #### P OCGLUC #### [facility] [address] [address] [address] Jag Waldrop Potassium [Moles/Vol] 5.1 mmol/L Normal 3.5-5.1 [facility] Comment on above: Performed By: #### P OCGLUC #### [facility] [address] [address] [address] Jag Waldrop Sodium [Moles/Vol] 141 mmol/L Normal 136-145 [facility] Comment on above: Performed By: #### P OCGLUC #### [facility] [address] [address] [address] Jag Waldrop Urea nitrogen [Mass/Vol] 41.0 mg/dL Critically high 7.0-18.0 [facility] Comment on above: Performed By: #### P OCGLUC #### [facility] [address] [address] [address] Jag Waldrop Urea nitrogen/Creatinine [Mass ratio] 23.8 mg/mg Normal [facility] Comment on above: Performed By: #### P OCGLUC #### [facility] [address] [address] [address] Jag Waldrop UA (CLEAN/CATCH) VELVET WEAVER/MICRO I F IND.on 10-28-2021 Bilirubin Ql (U) Negative Normal NEGATIVE [facility] Comment on above: Performed By: #### L IPID, BMP #### [facility] [address] [place] [address] Dr. Jag Waldrop Clarity (U) SL CLOUDY Abnormal CLEAR [facility] Comment on above: Performed By: #### L IPID, BMP #### [facility] [address] [place] [address] Dr. Jag Waldrop Color (U) LT. YELLOW Normal YELLOW [facility] Comment on above: Performed By: #### L IPID, BMP #### [facility] [address] [place] [address] Dr. Jag Waldrop Glucose Ql (U) Negative Normal NEGATIVE [facility] Comment on above: Performed By: #### L IPID, BMP #### [facility] [address] [place] [address] Dr. Jag Waldrop Hemoglobin Ql (U) TRACE-INTACT Abnormal NEGATIVE [facility] Comment on above: Performed By: #### L IPID, BMP #### [facility] [address] [place] [address] Dr. Jag Waldrop Ketones Ql (U) Negative Normal NEGATIVE [facility] Comment on above: Performed By: #### L IPID, BMP #### [facility] [address] [place] [address] Dr. Jag Waldrop LEUKOCYTES SMALL Abnormal NEGATIVE [facility] Comment on above: Performed By: #### L IPID, BMP #### [facility] [address] [place] [address] Dr. Jag Waldrop Nitrite Ql (U) Negative Normal NEGATIVE [facility] Comment on above: Performed By: #### L IPID, BMP #### [facility] [address] [place] [address] Dr. Jag Waldrop pH (U) 5.5 [pH] Normal 5-9 [facility] Comment on above: Performed By: #### L IPID, BMP #### [facility] [address] [place] [address] Dr. Jag Waldrop SPEC GRAVITY 1.020 Normal 1.005-<=1.0 25 [facility] Comment on above: Performed By: #### L IPID, BMP #### [facility] [address] [place] [address] Dr. Jag Waldrop UA PROTEIN Negative Normal NEGATIVE/ TRACE [facility] Comment on above: Performed By: #### L IPID, BMP #### [facility] [address] [place] [address] Dr. Jag Waldrop UR MICRO IND INDICATED Normal [facility] Comment on above: Performed By: #### L IPID, BMP #### [facility] [address] [place] [address] Dr. Jag Waldrop Urobilinogen Qn (U) 0.2 {Chris'U}/dL Normal 0.2 - 1. 0 [facility] Comment on above: Performed By: #### L IPID, BMP #### [facility] [address] [place] [address] Dr. Jag Waldrop URINE MICROSCOPIC ONLYon BACTERIA TRACE Abnormal NONE SEEN [facility] Comment on above: Performed By: #### L IPID, BMP #### [facility] [address] [place] [address] Dr. Jag Waldrop Bacteria identified Cx Nom (U) INDICATED Normal [facility] Comment on above: Performed By: #### L IPID, BMP #### [facility] [address] [place] [address] Dr. Jag Waldrop CAST NONE SEEN Normal NONE SEEN [facility] Comment on above: Performed By: #### L IPID, BMP #### [facility] [address] [place] [address] Dr. Jag Waldrop Crystals LM Nom (Urine sed) NONE SEEN Normal NONE SEEN [facility] Comment on above: Performed By: #### L IPID, BMP #### [facility] [address] [place] [address] Dr. Jag Waldrop Epithelial cells LM Ql (Urine sed) RARE Normal NONE SEEN /RARE [facility] Comment on above: Performed By: #### L IPID, BMP #### [facility] [address] [place] [address] Dr. Jag Waldrop MUCOUS TRACE Abnormal NONE SEEN [facility] Comment on above: Performed By: #### L IPID, BMP #### [facility] [address] [place] [address] Dr. Jag Waldrop RBC 0-2 Normal 0-2 [facility] Comment on above: Performed By: #### L IPID, BMP #### [facility] [address] [place] [address] Dr. Jag Waldrop WBC 2-5 Abnormal NONE SEEN [facility] Comment on above: Performed By: #### L IPID, BMP #### [facility] [address] [place] [address] Dr. Jag Waldrop BNPon 10-02-2021 Natriuretic peptide B (Bld) [Mass/Vol] 52.0 pg/mL Normal <=900.0 [facility] Comment on above: Performed By: #### L IPID, BMP #### [facility] [address] [place] [address] Dr. Jag Waldrop CBC AUTO DIFFon 10-02-2021 BASO # 0.1 103/ul Normal 0.0-0.1 [facility] Comment on above: Performed By: #### P OCGLUC #### [facility] [address] [place] [address] Dr. Jag Waldrop Basophils/100 WBC (Bld) 0.8 % Normal 0.2-2.0 [facility] Comment on above: Performed By: #### P OCGLUC #### [facility] [address] [place] [address] Dr. Jag Waldrop EO # 0.2 103/ul Normal 0.0-0.7 [facility] Comment on above: Performed By: #### P OCGLUC #### [facility] [address] [place] [address] Dr. Jag Waldrop Eosinophils/100 WBC (Bld) 3.0 % Normal 0.9-7.0 [facility] Comment on above: Performed By: #### P OCGLUC #### [facility] [address] [place] [address] Dr. Jag Waldrop Erythrocyte distribution width (RBC) [Ratio] 14.2 % Normal 11.0-15.0 [facility] Comment on above: Performed By: #### P OCGLUC #### [facility] [address] [place] [address] Dr. Jag Waldrop Hematocrit (Bld) [Volume fraction] 35.9 % Critically low 36.0-48.0 [facility] Comment on above: Performed By: #### P OCGLUC #### [facility] [address] [place] [address] Dr. Jag Waldrop Hemoglobin (Bld) [Mass/Vol] 11.0 g/dL Critically low 12.0-16.0 [facility] Comment on above: Performed By: #### P OCGLUC #### [facility] [address] [place] [address] Dr. Jag Waldrop IG # 0.03 10e3/ul Normal 0.00-0.03 [facility] Comment on above: Performed By: #### P OCGLUC #### [facility] [address] [place] [address] Dr. Jag Waldrop IG % 0.4 % Normal 0.0-0.5 [facility] Comment on above: Performed By: #### P OCGLUC #### [facility] [address] [place] [address] Dr. Jag Waldrop LYMPH # 2.8 103/ul Normal 1.2-3.8 [facility] Comment on above: Performed By: #### P OCGLUC #### [facility] [address] [place] [address] Dr. Jag Waldrop Lymphocytes/100 WBC (Bld) 37.9 % Normal 20.5-60.0 [facility] Comment on above: Performed By: #### P OCGLUC #### [facility] [address] [place] [address] Dr. Jag Waldrop MANUAL DIFF REQ NO Normal [facility] Comment on above: Performed By: #### P OCGLUC #### [facility] [address] [place] [address] Dr. Jag Waldrop MCH (RBC) [Entitic mass] 28.7 pg Normal 26.7-34.0 [facility] Comment on above: Performed By: #### P OCGLUC #### [facility] [address] [place] [address] Dr. Jag Waldrop MCHC (RBC) [Mass/Vol] 30.6 g/dL Normal 29.9-35.2 [facility] Comment on above: Performed By: #### P OCGLUC #### [facility] [address] [place] [address] Dr. Jag Waldrop MCV (RBC) [Entitic vol] 93.7 fL Normal 81.0-99.0 [facility] Comment on above: Performed By: #### P OCGLUC #### [facility] [address] [place] [address] Dr. Jag Waldrop MONO # 0.5 103/ul Normal 0.3-0.8 [facility] Comment on above: Performed By: #### P OCGLUC #### [facility] [address] [place] [address] Dr. Jag Waldrop Monocytes/100 WBC (Bld) 7.4 % Normal 1.7-12.0 [facility] Comment on above: Performed By: #### P OCGLUC #### [facility] [address] [place] [address] Dr. Jag Waldrop NEUT # 3.7 103/ul Normal 1.4-6.5 [facility] Comment on above: Performed By: #### P OCGLUC #### [facility] [address] [place] [address] Dr. Jag Waldrop Neutrophils/100 WBC (Bld) 50.5 % Normal 43.0-75.0 [facility] Comment on above: Performed By: #### P OCGLUC #### [facility] [address] [place] [address] Dr. Jag Waldrop Platelet mean volume (Bld) [Entitic vol] 10.2 fL Normal 9.5-13.5 [facility] Comment on above: Performed By: #### P OCGLUC #### [facility] [address] [place] [address] Dr. Jag Waldrop PLT 261 103/ul Normal 150-450 [facility] Comment on above: Performed By: #### P OCGLUC #### [facility] [address] [place] [address] Dr. Jag Waldrop RBC 3.83 106/ul Critically low 4.20-5.40 [facility] Comment on above: Performed By: #### P OCGLUC #### [facility] [address] [place] [address] Dr. Jag Waldrop WBC 7.3 103/ul Normal 4.0-11.0 [facility] Comment on above: Performed By: #### P OCGLUC #### [facility] [address] [place] [address] Dr. Jag Waldrop POINT OF CARE GLUCOSEon 09-14 Glucose [Mass/Vol] 156 mg/dL Critically high 74-106 [facility] Comment on above: Performed By: #### P OCGLUC #### [facility] [address] [place] [address] Dr. Jag Waldrop Glucose [Mass/Vol] 304 mg/dL Critically high 74-106 [facility] Comment on above: Performed By: #### P OCGLUC #### [facility] [address] [place] [address] Dr. Jag Waldrop Glucose [Mass/Vol] 77 mg/dL Normal 74-106 [facility] Comment on above: Performed By: #### E RUR #### [facility] [address] [place] [address] Dr. Jag Waldrop Glucose [Mass/Vol] 136 mg/dL Critically high 74-106 [facility] Comment on above: Performed By: #### E RUR #### [facility] [address] [place] [address] Dr. Jag Waldrop Glucose [Mass/Vol] 73 mg/dL Critically low 74-106 [facility] Comment on above: Performed By: #### E RUR #### [facility] [address] [place] [address] Dr. Jag Waldrop PROF CHEM 8 (BAS METB)on Anion gap [Moles/Vol] 15.5 mmol/L Normal [facility] Comment on above: Performed By: #### P OCGLUC #### [facility] [address] [address] [address] Jag Waldrop Calcium [Mass/Vol] 8.3 mg/dL Critically low 8.5-10.1 [facility] Comment on above: Performed By: #### P OCGLUC #### [facility] [address] [address] [address] Jag Waldrop Chloride [Moles/Vol] 108 mmol/L Critically high 98-107 [facility] Comment on above: Performed By: #### P OCGLUC #### [facility] [address] [place] [address] Dr. Jag Waldrop CO2 [Moles/Vol] 18.9 mmol/L Critically low 21.0-32.0 [facility] Comment on above: Performed By: #### P OCGLUC #### [facility] [address] [place] [address] Dr. Jag Waldrop Creatinine [Mass/Vol] 1.43 mg/dL Critically high 0.55-1.02 [facility] Comment on above: Performed By: #### P OCGLUC #### [facility] [address] [place] [address] Dr. Jag Waldrop EGFR-AF SIERRA LEONEAN 47 mL/min/1.73m2 Critically low >=60 [facility] Comment on above: Performed By: #### P OCGLUC #### [facility] [address] [place] [address] Dr. Jag Waldrop EGFR-NON AF SIERRA LEONEAN 39 mL/min/1.73m2 Critically low >=60 [facility] Comment on above: Performed By: #### P OCGLUC #### [facility] [address] [place] [address] Dr. Jag Waldrop Glucose [Mass/Vol] 269 mg/dL Critically high 74-106 [facility] Comment on above: Performed By: #### P OCGLUC #### [facility] [address] [place] [address] Dr. Jag Waldrop Potassium [Moles/Vol] 5.4 mmol/L Critically high 3.5-5.1 [facility] Comment on above: Performed By: #### P OCGLUC #### [facility] [address] [address] [address] Jag Waldrop Sodium [Moles/Vol] 137 mmol/L Normal 136-145 [facility] Comment on above: Performed By: #### P OCGLUC #### [facility] [address] [address] [address] Jag Waldrop Urea nitrogen [Mass/Vol] 40.0 mg/dL Critically high 7.0-18.0 [facility] Comment on above: Performed By: #### P OCGLUC #### [facility] [address] [place] [address] Dr. Jag Waldrop Urea nitrogen/Creatinine [Mass ratio] 28.0 mg/mg Normal [facility] Comment on above: Performed By: #### P OCGLUC #### [facility] [address] [place] [address] Dr. Jag Waldrop Anion gap [Moles/Vol] 14.0 mmol/L Normal [facility] Comment on above: Performed By: #### E RUR #### [facility] [address] [place] [address] Dr. Jag Waldrop Calcium [Mass/Vol] 8.9 mg/dL Normal 8.5-10.1 [facility] Comment on above: Performed By: #### E RUR #### [facility] [address] [place] [address] Dr. Jag Waldrop Chloride [Moles/Vol] 110 mmol/L Critically high 98-107 [facility] Comment on above: Performed By: #### E RUR #### [facility] [address] [place] [address] Dr. Jag Waldrop CO2 [Moles/Vol] 21.1 mmol/L Normal 21.0-32.0 [facility] Comment on above: Performed By: #### E RUR #### [facility] [address] [place] [address] Dr. Jag Waldrop Creatinine [Mass/Vol] 1.32 mg/dL Critically high 0.55-1.02 [facility] Comment on above: Performed By: #### E RUR #### [facility] [address] [address] [address] Jag Waldrop EGFR-AF SIERRA LEONEAN 52 mL/min/1.73m2 Critically low >=60 [facility] Comment on above: Performed By: #### E RUR #### [facility] [address] [address] [address] Jag Waldrop EGFR-NON AF SIERRA LEONEAN 43 mL/min/1.73m2 Critically low >=60 [facility] Comment on above: Performed By: #### E RUR #### [facility] [address] [place] [address] Dr. Jag Waldrop Glucose [Mass/Vol] 79 mg/dL Normal 74-106 [facility] Comment on above: Performed By: #### E RUR #### [facility] [address] [place] [address] Dr. Jag Waldrop Potassium [Moles/Vol] 6.1 mmol/L Critically high 3.5-5.1 [facility] Comment on above: Result Comment: Test Repeated. Critical Value Verified Performed By: #### E RUR #### [facility] [address] [place] [address] Dr. Jag Waldrop Sodium [Moles/Vol] 140 mmol/L Normal 136-145 [facility] Comment on above: Performed By: #### E RUR #### [facility] [address] [place] [address] Dr. Jag Waldrop Urea nitrogen [Mass/Vol] 45.0 mg/dL Critically high 7.0-18.0 [facility] Comment on above: Performed By: #### E RUR #### [facility] [address] [place] [address] Dr. Jag Waldrop Urea nitrogen/Creatinine [Mass ratio] 34.1 mg/mg Normal [facility] Comment on above: Performed By: #### E RUR #### [facility] [address] [place] [address] Dr. Jag Waldrop BASIC METABOLIC PANELon 05- Calcium [Mass/Vol] 8.9 mg/dL Normal 8.6-10.3 [facility] Comment on above: Order Comment: No: D o not add to previous draw Performed By: #### 5 [id number], [id number] #### [facility] [address] [place] [address], [place] Chloride [Moles/Vol] 105 mmol/L Normal 98-107 [facility] Comment on above: Order Comment: No: D o not add to previous draw Performed By: #### 5 610, 81265 #### [facility] [address] [place] [address], [place] CO2 [Moles/Vol] 26 mmol/L Normal 21-31 [facility] Comment on above: Order Comment: No: D o not add to previous draw Performed By: #### 5 610, [id number] #### [facility] [address] [place] [address], [place] Creatinine [Mass/Vol] 0.99 mg/dL Normal 0.60-1.20 [facility] Comment on above: Order Comment: No: D o not add to previous draw Performed By: #### 5 6101, 72896 #### [facility] [address] [place] [address], [place] GFR/1.73 sq M predicted among blacks MDRD (S/P/Bld) [Vol rate/Area] mL/min/{1.73_m2} Normal >60 [facility] Comment on above: Order Comment: No: D o not add to previous draw Performed By: #### 5 6101, [id number] #### [facility] [address] [place] [address], [place] GFR/1.73 sq M predicted among non-blacks MDRD (S/P/Bld) [Vol rate/Area] mL/min/{1.73_m2} Normal >60 [facility] Comment on above: Order Comment: No: D o not add to previous draw Performed By: #### 5 610, [id number] #### [facility] [address] [place] [address], [facility] Glucose [Mass/Vol] 145 mg/dL High 70-100 [facility] Comment on above: Order Comment: No: D o not add to previous draw Performed By: #### 5 610, 41920 #### [facility] [address] [place] [address], [facility] Potassium [Moles/Vol] 3.7 mmol/L Normal 3.5-5.1 [facility] Comment on above: Order Comment: No: D o not add to previous draw Performed By: #### 5 610, 00687 #### [facility] [address] [place] [id number], [facility] Sodium [Moles/Vol] 139 mmol/L Normal 136-145 [facility] Comment on above: Order Comment: No: D o not add to previous draw Performed By: #### 5 610, [id number] #### [facility] [address] [place] [address], [facility] Urea nitrogen [Mass/Vol] 26 mg/dL High 7-25 [facility] Comment on above: Order Comment: No: D o not add to previous draw Performed By: #### 5 610, 84573 #### [facility] [address] [facility]. [address] CBC W/DIFFon 08-25-2018 ABS BASOPHILS 0.0 10*3/uL Normal 0.0-0.2 [facility] Comment on above: Order Comment: No: D o not add to previous draw Performed By: #### 5 6101, 04846 #### [facility] [address] [place] [address], [facility] ABS IMM GRANS 0.0 10*3/uL Normal 0.0-0.2 [facility] Comment on above: Order Comment: No: D o not add to previous draw Performed By: #### 5 6100, 64786 #### [facility] [address] [place] [address], [facility] ABS NEUTROPHILS 2.3 10*3/uL Normal 1.6-7.6 [facility] Comment on above: Order Comment: No: D o not add to previous draw Performed By: #### 5 6100, 62951 #### [facility] [address] [place] [address], [facility] Basophils/100 WBC (Bld) 0.3 % Normal 0.0-1.0 [facility] Comment on above: Order Comment: No: D o not add to previous draw Performed By: #### 5 6100, 65728 #### [facility] [address] [place] [address], [place] Eosinophils (Bld) [#/Vol] 0.0 10*3/uL Normal 0.0-0.5 [facility] Comment on above: Order Comment: No: D o not add to previous draw Performed By: #### 5 6100, 60659 #### [facility] [address] [place] [address], [facility] Eosinophils/100 WBC (Bld) 0.0 % Normal 0.0-6.0 [facility] Comment on above: Order Comment: No: D o not add to previous draw Performed By: #### 5 6100, 32742 #### [facility] [address] [place] [address], [place] Erythrocyte distribution width (RBC) [Ratio] 13.3 % Normal 11.5-15.0 [facility] Comment on above: Order Comment: No: D o not add to previous draw Performed By: #### 5 6100, 95744 #### [facility] [address] [place] [address], [place] Hematocrit (Bld) [Volume fraction] 37.7 % Normal 36.0-45.0 [facility] Comment on above: Order Comment: No: D o not add to previous draw Performed By: #### 5 610, 10354 #### [facility] [address] [place] [address], [facility] Hemoglobin (Bld) [Mass/Vol] 12.1 g/dL Normal 12.0-15.0 [facility] Comment on above: Order Comment: No: D o not add to previous draw Performed By: #### 5 6100, 59814 #### [facility] [address] [place] [address], [facility] IMMATURE GRANS 0.2 % Normal 0.0-1.0 [facility] Comment on above: Order Comment: No: D o not add to previous draw Performed By: #### 5 6100, 16283 #### [facility] [address] [place] [address], [facility] Lymphocytes (Bld) [#/Vol] 3.0 10*3/uL Normal 1.2-4.0 [facility] Comment on above: Order Comment: No: D o not add to previous draw Performed By: #### 5 6100, 31308 #### [facility] [address] [place] [id number], [facility] Lymphocytes/100 WBC (Bld) 52.0 % High 20.0-45.0 [facility] Comment on above: Order Comment: No: D o not add to previous draw Performed By: #### 5 6100, 63349 #### [facility] [address] [place] [address], [place] MCH (RBC) [Entitic mass] 28.7 pg Normal 27.0-33.0 [facility] Comment on above: Order Comment: No: D o not add to previous draw Performed By: #### 5 6100, 42524 #### [facility] [address] [place] [address], [place] MCHC (RBC) [Mass/Vol] 32.1 g/dL Normal 32.0-35.0 [facility] Comment on above: Order Comment: No: D o not add to previous draw Performed By: #### 5 610, 49171 #### [facility] [address] [place] [address], [facility] MCV (RBC) [Entitic vol] 89.3 fL Normal 82.0-98.0 [facility] Comment on above: Order Comment: No: D o not add to previous draw Performed By: #### 5 6100, 52817 #### [facility] [address] [place] [address], [facility] Monocytes (Bld) [#/Vol] 0.5 10*3/uL Normal 0.1-1.0 [facility] Comment on above: Order Comment: No: D o not add to previous draw Performed By: #### 5 6100, 50181 #### [facility] [address] [place] [address], [facility] MONOS 7.9 % Normal 5.0-12.0 [facility] Comment on above: Order Comment: No: D o not add to previous draw Performed By: #### 5 6100, 37096 #### [facility] [address] [place] [address], [facility] Neutrophils/100 WBC (Bld) 39.6 % Low 40.0-72.0 [facility] Comment on above: Order Comment: No: D o not add to previous draw Performed By: #### 5 6100, 63930 #### [facility] [address] [place] [address], [facility] Nucleated RBC/100 WBC (Bld) [Ratio] 0 % Normal 0-0 [facility] Comment on above: Order Comment: No: D o not add to previous draw Performed By: #### 5 6100, 54014 #### [facility] [address] [place] [id number], [place] PLAT CNT 236 10*3/uL Normal 150-400 [facility] Comment on above: Order Comment: No: D o not add to previous draw Performed By: #### 5 6101, 87980 #### [facility] [address] [place] [address], [facility] RBC (Bld) [#/Vol] 4.22 10*6/uL Normal 3.80-5.00 [facility] Comment on above: Order Comment: No: D o not add to previous draw Performed By: #### 5 6101, 29953 #### [facility] [address] [place] [address], [facility] WBC (Bld) [#/Vol] 5.85 10*3/uL Normal 4.00-10.60 [facility] Comment on above: Order Comment: No: D o not add to previous draw Performed By: #### 5 6101, 17102 #### [facility] [address] POC GLUCOSE LABon 08-25-2018 Glucose [Mass/Vol] 180 mg/dL High 70-100 [facility] Comment on above: Performed By: #### 5 6101, 44263 #### [facility] [address] [place] [address], [facility] Glucose [Mass/Vol] 129 mg/dL High 70-100 [facility] Comment on above: Performed By: #### 5 6101, 84523 #### [facility] [facility] [address] [place] [id number], [facility] Glucose [Mass/Vol] 132 mg/dL High 70-100 [facility] Comment on above: Performed By: #### 5 [id number] #### [facility] [address] [place] [address], [facility] UFH HEPARIN ASSAYon 08-26-19 19 UNFRACTIONATED HEPARIN <0.10 Critically low 0.30-0.70 [facility] Comment on above: Result Comment: [place] roxaban and Apixaban will interfere with the anti Xa assay used to monitor UFH and LMWH. RESULTS CHECKED AND CALLED. ACCURATELY READ BACK BY JANENE ZAMARRIPA RN AT 0554 Performed By: #### 5 [id number], [id number] #### [facility] [address] [place] [id number], [facility] BASIC METABOLIC PANELon 05- Calcium [Mass/Vol] 8.5 mg/dL Low 8.6-10.3 [facility] Comment on above: Order Comment: No: D o not add to previous draw Performed By: #### 5 [id number] #### [facility] [address] [place] [address], [place] Chloride [Moles/Vol] 104 mmol/L Normal 98-107 [facility] Comment on above: Order Comment: No: D o not add to previous draw Performed By: #### 5 [id number] #### [facility] [address] [place] [address], [facility] CO2 [Moles/Vol] 27 mmol/L Normal 21-31 [facility] Comment on above: Order Comment: No: D o not add to previous draw Performed By: #### 5 [id number] #### [facility] [address] [place] [address], [place] Creatinine [Mass/Vol] 1.13 mg/dL Normal 0.60-1.20 [facility] Comment on above: Order Comment: No: D o not add to previous draw Performed By: #### 5 [id number] #### [facility] [address] [place] [address], [place] GFR/1.73 sq M predicted among blacks MDRD (S/P/Bld) [Vol rate/Area] mL/min/{1.73_m2} Normal >60 [facility] Comment on above: Order Comment: No: D o not add to previous draw Performed By: #### 5 [id number] #### [facility] [address] [place] [address], [place] GFR/1.73 sq M predicted among non-blacks MDRD (S/P/Bld) [Vol rate/Area] 52 ml/min/1.73sq m Abnormal >60 [facility] Comment on above: Order Comment: No: D o not add to previous draw Performed By: #### 5 [id number] #### [facility] [address] [place] [address], [place] Glucose [Mass/Vol] 131 mg/dL High 70-100 [facility] Comment on above: Order Comment: No: D o not add to previous draw Performed By: #### 5 0608 #### [facility] [address] [place] [address], [place] Potassium [Moles/Vol] 3.9 mmol/L Normal 3.5-5.1 [facility] Comment on above: Order Comment: No: D o not add to previous draw Performed By: #### 5 [id number] #### [facility] [address] [place] [address], [place] Sodium [Moles/Vol] 141 mmol/L Normal 136-145 [facility] Comment on above: Order Comment: No: D o not add to previous draw Performed By: #### 5 [id number] #### [facility] [address] [place] [address], [place] Urea nitrogen [Mass/Vol] 28 mg/dL High 7-25 [facility] Comment on above: Order Comment: No: D o not add to previous draw Performed By: #### 5 [id number] #### [facility] [address] [place] [address], [place] CBC COMPLETE BLOOD COUNTon - Erythrocyte distribution width (RBC) [Ratio] 13.5 % Normal 11.5-15.0 [facility] Comment on above: Order Comment: No: D o not add to previous draw Performed By: #### 5 [id number] #### [facility] [address] Hematocrit (Bld) [Volume fraction] 37.1 % Normal 36.0-45.0 [facility] Comment on above: Order Comment: No: D o not add to previous draw Performed By: #### 5 [id number] #### [facility] [address] [place] [address], [facility] Hemoglobin (Bld) [Mass/Vol] 12.2 g/dL Normal 12.0-15.0 [facility] Comment on above: Order Comment: No: D o not add to previous draw Performed By: #### 5 [id number] #### [facility] [address] [facility] [place] [address], [facility] MCH (RBC) [Entitic mass] 28.8 pg Normal 27.0-33.0 [facility] Comment on above: Order Comment: No: D o not add to previous draw Performed By: #### 5 [id number] #### [facility] [address] [place] [address], [facility] MCHC (RBC) [Mass/Vol] 32.9 g/dL Normal 32.0-35.0 [facility] Comment on above: Order Comment: No: D o not add to previous draw Performed By: #### 5 [id number] #### [facility] [address] [place] [address], [facility] MCV (RBC) [Entitic vol] 87.7 fL Normal 82.0-98.0 [facility] Comment on above: Order Comment: No: D o not add to previous draw Performed By: #### 5 [id number] #### [facility] [address] [facility] [place] [address], [facility] Nucleated RBC/100 WBC (Bld) [Ratio] 0 % Normal 0-0 [facility] Comment on above: Order Comment: No: D o not add to previous draw Performed By: #### 5 [id number] #### [facility] [address] [place] [address], [facility] PLAT CNT 251 10*3/uL Normal 150-400 [facility] Comment on above: Order Comment: No: D o not add to previous draw Performed By: #### 5 0608 #### [facility] [address] RBC (Bld) [#/Vol] 4.23 10*6/uL Normal 3.80-5.00 [facility] Comment on above: Order Comment: No: D o not add to previous draw Performed By: #### 5 0608 #### [facility] [address] [place] [address], [facility] WBC (Bld) [#/Vol] 8.42 10*3/uL Normal 4.00-10.60 [facility] Comment on above: Order Comment: No: D o not add to previous draw Performed By: #### 5 [id number] #### [facility] [address] Cardiovascular Lab Reporton 08-24-2018 Cardiovascular Lab Report [facility] MR #: [id number] Department of Physician: Marshall Torres M.D. Division of Service Date: 08/23/2018 Cardiology Birthdate: 1970 Adult Cardiovascular Room #: 3AB [id number] [place] [address] Cardiovascular Laboratory Report FINAL IMPRESSION: 1. Mild [...] Follow up with me in the [facility] post discharge. 6. Further recommendations deferred [...] the left radial artery was obtained. A 6-Yi Glidesheath was inserted without difficulty. 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 There are luminal irregularities throughout the remainder [...] P Tk Godoy M.D. Date Dict: 08/23/2018/04:28 Yovani Godoy M.D. Date Trans: 08/24/2018 06:37 A/adrianneo [id number] cc: Geovanni Brunner D.O. [address] [facility] [address] [place] [facility] HIP RIGHT 1 OR 2 VWS WITH PE LVISon 08-24-2018 HIP RIGHT 1 OR 2 VWS WITH PELVIS [facility] Department of Radiology [address] [place] [id number] Patient Name: SHERLY HUMPHREYS : 1970 Sex: F Age: Race: White Pt. Location: [id number] Patient Status: D Ordered Date: 08/24/2018 12:30:00 [...] findings. Electronically signed by:Kristy Jones. Transcribed by: [email or web address], User Resident: DL GOLDBERG Electronically Signed by: KRISTY JONES @ 08/25/2018 08:05 PM I personally read this/these film(s) with this resident Normal [facility] Comment on above: Order Comment: No: D o not add to previous draw POC GLUCOSE LABon 08-24-2018 Glucose [Mass/Vol] 125 mg/dL High 70-100 [facility] Comment on above: Performed By: #### 5 [id number] #### [facility] [address] [facility] [place] [address], [facility] Glucose [Mass/Vol] 150 mg/dL High 70-100 [facility] Comment on above: Performed By: #### 5 0608 #### [facility] [address] [facility] [place] [address], [facility] Glucose [Mass/Vol] 119 mg/dL High 70-100 [facility] Comment on above: Performed By: #### 5 0608 #### [facility] [address] [facility] [place] [address], [facility] UFH HEPARIN ASSAYon 08-25-19 19 UNFRACTIONATED HEPARIN <0.10 Critically low 0.30-0.70 [facility] Comment on above: Result Comment: [place] roxaban and Apixaban will interfere with the anti Xa assay used to monitor UFH and LMWH. RESULTS CHECKED AND CALLED. ACCURATELY READ BACK BY JANENE ZAMARRIPA RN AT 0732 Performed By: #### 5 0608 #### [facility] [address] APTTon 08-23-2018 aPTT Coag (Bld) [Time] 38.8 s High 25.0-35.0 Th e [facility] Comment on above: Order [...] THIS PURPOSE. Performed By: #### 5 6101, [id number] #### [facility] [address] CBC COMPLETE BLOOD COUNTon 0 08-23-2018 Erythrocyte distribution width (RBC) [Ratio] 13.3 % Normal 11.5-15.0 [facility] Comment on above: Order Comment: No: D o not add to previous draw Performed By: #### 5 0608 #### [facility] [address] Hematocrit (Bld) [Volume fraction] 41.4 % Normal 36.0-45.0 [facility] Comment on above: Order Comment: No: D o not add to previous draw Performed By: #### 5 0608 #### [facility] [address] Hemoglobin (Bld) [Mass/Vol] 13.8 g/dL Normal 12.0-15.0 [facility] Comment on above: Order Comment: No: D o not add to previous draw Performed By: #### 5 0608 #### [facility] [address] MCH (RBC) [Entitic mass] 29.0 pg Normal 27.0-33.0 [facility] Comment on above: Order Comment: No: D o not add to previous draw Performed By: #### 5 0608 #### [facility] [address] [place] [address], [facility] MCHC (RBC) [Mass/Vol] 33.3 g/dL Normal 32.0-35.0 [facility] Comment on above: Order Comment: No: D o not add to previous draw Performed By: #### 5 0608 #### [facility] [address] [place] [address], [facility] MCV (RBC) [Entitic vol] 87.0 fL Normal 82.0-98.0 [facility] Comment on above: Order Comment: No: D o not add to previous draw Performed By: #### 5 0608 #### [facility] [address] [place] [address], [facility] Nucleated RBC/100 WBC (Bld) [Ratio] 0 % Normal 0-0 [facility] Comment on above: Order Comment: No: D o not add to previous draw Performed By: #### 5 0608 #### [facility] [address] [facility] [place] [address], [facility] PLAT CNT 293 10*3/uL Normal 150-400 [facility] Comment on above: Order Comment: No: D o not add to previous draw Performed By: #### 5 0608 #### [facility] [address] [place] [id number], [facility] RBC (Bld) [#/Vol] 4.76 10*6/uL Normal 3.80-5.00 [facility] Comment on above: Order Comment: No: D o not add to previous draw Performed By: #### 5 0608 #### [facility] [address] [place] [id number], [facility] WBC (Bld) [#/Vol] 10.48 10*3/uL Normal 4.00-10.60 [facility] Comment on above: Order Comment: No: D o not add to previous draw Performed By: #### 5 0608 #### [facility] [address] [place], [place] [address] History and Physicalon 08-23 History and Physical MR#: [id number] [facility] Pt. Name: Sherly Humphreys Admitted: 08/23/2018 Date of : 1970 Attending Physician: Nini Valente MD Room #: 3AB [id number] Discharge Date: HISTORY AND PHYSICAL CHIEF COMPLAINT: [...] she went to the emergency department in [facility]. Initial evaluation included troponin and EKG, which were negative. The patient was started on nitroglycerin patch. She experienced some relief after starting the nitroglycerin patch. Her pain went down from 8 to 6/10. Given her significant cardiac history, the patient was transferred to [facility] for further evaluation. The patient reports [...] with no ST-T wave changes. Troponin from [facility] was 0.01. Pending troponin in [...] Amanda/Nini Valente MD Date Trans: 08/23/2018 06:27 Amanda/yadira [id number] Normal [facility] POC GLUCOSE LABon 08-23-2018 Glucose [Mass/Vol] 101 mg/dL High 70-100 [facility] Comment on above: Performed By: #### 5 0608 #### [facility] [address] [facility] [place] [address], [facility] Glucose [Mass/Vol] 96 mg/dL Normal 70-100 [facility] Comment on above: Performed By: #### 5 0608 #### [facility] [address] [facility] [place] [address], [facility] Glucose [Mass/Vol] 134 mg/dL High 70-100 [facility] Comment on above: Performed By: #### 8 [id number] #### [facility] [address] [facility] [place] [address], [facility] Glucose [Mass/Vol] 164 mg/dL High 70-100 [facility] Comment on above: Performed By: #### 8 5499 #### [facility] [address] [facility]. [address] PROTHROMBIN TIMEon 9 INR Coag (PPP) [Relative time] 1.06 {INR} Normal 0.91-1.16 [facility] Comment on above: Order [...] CHEST 1995;[id number]. Performed By: #### 5 6101, [id number] #### [facility] [address] [employer] PT Coag (PPP) [Time] 13.8 s Normal 12.3-14.8 [facility] Comment on above: Order Comment: No: D o not add to previous draw Result Comment: ALL RESULTS MUST BE INTERPRETED WITH RESPECT TO BLOOD DRAWING ARTIFACT OR DILUTION ERROR OF ANTICOAGULANT AT THE TIME OF SAMPLING. Performed By: #### 5 [id number], [id number] #### [facility] [address] [facility]. [address] SERUM TESTon 08-23 TEST Negative Normal [facility] Comment on above: Order Comment: Yes: Add to Previous draw if able Performed By: #### 4 6473 #### [facility] [address] TROPONIN-Ion 08-23-2018 Troponin I.cardiac [Mass/Vol] 0.01 ng/mL Normal 0.00-0.04 [facility] Comment on above: Order Comment: No: D o not add to previous draw Result Comment: REFE RENCE RANGES: 0.00 - 0.04 ng/ml NORMAL 0.05 - 0.50 ng/ml INDETERMINATE > 0.50 ng/ml CONSISTENT WITH AN M.I. Performed By: #### 3 5200 #### [facility] [address] [facility]. [address] UFH HEPARIN ASSAYon 08-24-19 19 UNFRACTIONATED HEPARIN 0.42 IU/mL Normal 0.30-0.70 Th e [facility] Comment on above: Order Comment: per beatriz schneider Result Comment: [place] roxaban and Apixaban will interfere with the anti Xa assay used to monitor UFH and LMWH. Performed By: #### 3 0477 #### [address] UNFRACTIONATED HEPARIN 0.29 IU/mL Low 0.30-0.70 Th e [facility] Comment on above: Result Comment: [place] roxaban and Apixaban will interfere with the anti Xa assay used to monitor UFH and LMWH. Performed By: #### 3 0477 #### [place] [address], [facility] US GALLBLADDERon 08-23-2018 US GALLBLADDER [facility] Department of Radiology [address] [place], [place] [id number] Patient Name: SHERLY HUMPHREYS : 1970 Sex: F Age: Race: White Pt. Location: [address] [place] [address] Patient Status: I Ordered Date: 08/23/2018 11:30:00 [...] gallbladder. Electronically signed by:Nathan Mauricio. Transcribed by: [email or web address], User Resident: Electronically Signed by: NATHAN MAURICIO @ 08/23/2018 03:33 PM Normal [facility] Comment on above: Order Comment: No: D o not add to previous draw Vital Signs Date Time Vital Sign Value Performing Clinician Facility 11-01-2023 11:00-0400 Diastolic blood pressure 83 mm[Hg] Janene Jonesomkar Work Phone: [facility] 11-01-2023 11:00-0400 Heart rate 52 /min Janene Jonesomkar Work Phone: [facility] 11-01-2023 11:00-0400 Respiratory rate 16 /min Janene Jonesangiez Work Phone: [facility] 11-01-2023 11:00-0400 SaO2% (BldA) [Mass fraction] 98 % Janene Karenangiez Work Phone: [facility] 11-01-2023 11:00-0400 Systolic blood pressure 144 mm[Hg] Janene Karenholz Work Phone: [facility] 11-01-2023 10:30-0400 Inhaled oxygen flow rate 8 L/min Janene Reddhholz Work Phone: [facility] 11-01-2023 07:28-0400 Body height 162.56 cm Janeneamanda Jonesangiez Work Phone: [facility] 11-01-2023 07:28-0400 Body temperature 97.9 [degF] Janene Aichholz Work Phone: [facility] 11-01-2023 07:28-0400 Body weight 129.72 kg Janene Aichholz Work Phone: [facility] 10-16-2023 13:05-0400 Body height 162.56 cm Janene Aichholz Work Phone: [facility] 10-16-2023 13:05-0400 Body mass index (BMI) [Ratio] 51.5 kg/m2 Janene Aichholz Work Phone: [facility] 10-16-2023 13:05-0400 Body temperature 97.3 [degF] Janene Aichholz Work Phone: [facility] 10-16-2023 13:05-0400 Body weight 136.3 kg Janene Aichholz Work Phone: [facility] 10-16-2023 13:05-0400 Diastolic blood pressure 76 mm[Hg] Janene Aichholz Work Phone: [facility] 10-16-2023 13:05-0400 Heart rate 69 /min Janene Aichholz Work Phone: [facility] 10-16-2023 13:05-0400 Respiratory rate 18 /min Janene Aichholz Work Phone: [facility] 10-16-2023 13:05-0400 SaO2% (BldA) [Mass fraction] 99 % Janene Aichholz Work Phone: [facility] 10-16-2023 13:05-0400 Systolic blood pressure 125 mm[Hg] Janene Aichholz Work Phone: [facility] 10-02-2023 08:00-0400 Body temperature 97.9 [degF] Janene Aichholz Work Phone: [facility] 10-02-2023 08:00-0400 Diastolic blood pressure 82 mm[Hg] Janene Aichholz Work Phone: [facility] 10-02-2023 08:00-0400 Heart rate 58 /min Janene Aichholz Work Phone: [facility] 10-02-2023 08:00-0400 Respiratory rate 16 /min Janene Aichholz Work Phone: [facility] 10-02-2023 08:00-0400 SaO2% (BldA) [Mass fraction] 100 % Janene Aichholz Work Phone: [facility] 10-02-2023 08:00-0400 Systolic blood pressure 138 mm[Hg] Janene Aichholz Work Phone: [facility] 10-02-2023 05:02-0400 Body weight 139.8 kg Janene Aichholz Work Phone: [facility] 10-01-2023 05:34-0400 Body height 162.56 cm Janene Aichholz Work Phone: [facility] 08-15-2023 10:02-0400 Body height 162.56 cm Janene Aichholz Work Phone: [facility] 08-15-2023 10:02-0400 Body mass index (BMI) [Ratio] 54.6 kg/m2 Janene Aichholz Work Phone: [facility] 08-15-2023 10:02-0400 Body temperature 96.9 [degF] Janene Aichholz Work Phone: [facility] 08-15-2023 10:02-0400 Body weight 144.24 kg Janene Aichholz Work Phone: [facility] 08-15-2023 10:02-0400 Diastolic blood pressure 77 mm[Hg] Janene Aichholz Work Phone: [facility] 08-15-2023 10:02-0400 Heart rate 59 /min Janene Jonesholz Work Phone: [facility] 08-15-2023 10:02-0400 Respiratory rate 18 /min Janene Jonesholz Work Phone: [facility] 08-15-2023 10:02-0400 SaO2% (BldA) [Mass fraction] 98 % Janene Jonesholrufus Work Phone: [facility] 08-15-2023 10:02-0400 Systolic blood pressure 130 mm[Hg] Janene Jonesholz Work Phone: [facility] 08-14-2022 10:15-0400 Body height 162.56 cm Ivan Sams Other [employer] Other 08-14-2022 10:15-0400 Body mass index (BMI) [Ratio] 51.63 kg/m2 Ivan Sams Other [employer] Other 08-14-2022 10:15-0400 Body weight 136.44 kg Ivan Sams Other [employer] Other 08-14-2022 10:15-0400 Diastolic blood pressure 80 mm[Hg] Ivan Sams Other [employer] Other 08-14-2022 10:15-0400 SaO2% (BldA) [Mass fraction] 99 % Ivan Sams Other [employer] Other 08-14-2022 10:15-0400 Systolic blood pressure 140 mm[Hg] Ivan Sams Other [employer] Other 07-03-2022 12:30-0400 Body height 162.56 cm Ivan Sams Other [employer] Other 07-03-2022 12:30-0400 Body mass index (BMI) [Ratio] 51.39 kg/m2 Ivan Sams Other [employer] Other 07-03-2022 12:30-0400 Body weight 135.81 kg Ivan Sams Other [employer] Other 07-03-2022 12:30-0400 Diastolic blood pressure 84 mm[Hg] Ivan Sams Other [employer] Other 07-03-2022 12:30-0400 SaO2% (BldA) [Mass fraction] 99 % Ivan Sams Other [employer] Other 07-03-2022 12:30-0400 Systolic blood pressure 142 mm[Hg] Ivan Sams Other [employer] Other 06-24-2022 15:59-0500 Body height 162.56 cm Janene Reddhholz Work Phone: [facility] 06-24-2022 15:59-0500 Body temperature 98.2 [degF] Janene Aichholz Work Phone: [facility] 06-24-2022 15:59-0500 Body weight 134.4 kg Janene Aichholz Work Phone: [facility] 06-24-2022 15:59-0500 Diastolic blood pressure 95 mm[Hg] Janene Aichholz Work Phone: [facility] 06-24-2022 15:59-0500 Heart rate 94 /min Janene Aichholz Work Phone: [facility] 06-24-2022 15:59-0500 Respiratory rate 20 /min Janene Lew Work Phone: [facility] 06-24-2022 15:59-0500 SaO2% (BldA) [Mass fraction] 96 % Janene Lew Work Phone: [facility] 06-24-2022 15:59-0500 Systolic blood pressure 187 mm[Hg] Janene Lew Work Phone: [facility] 05-12-2022 12:00-0500 Body height 162.56 cm Christian Mckenzie Other [facility] [employer] Other 05-12-2022 12:00-0500 Body mass index (BMI) [Ratio] 51.94 kg/m2 Christian Mckenzie Other [employer] Other 05-12-2022 12:00-0500 Body weight 137.26 kg Christian Mckenzie Other [employer] Other 04-25-2022 12:20-0500 Body height 162.56 cm Halle Mac Other [employer] Other 04-25-2022 12:20-0500 Body mass index (BMI) [Ratio] 51.94 kg/m2 Halle Mac Other [employer] Other 04-25-2022 12:20-0500 Body temperature 97.5 [degF] Halle [employer] Other [employer] Other 04-25-2022 12:20-0500 Body weight 137.26 kg Halle [employer] Other [employer] Other 04-25-2022 12:20-0500 Diastolic blood pressure 80 mm[Hg] Azaurelia Webers Other [employer] Other 04-25-2022 12:20-0500 Respiratory rate 18 /min Halle Webers Other [employer] Other 04-25-2022 12:20-0500 SaO2% (BldA) [Mass fraction] 97 % Halle Webers Other [facility] Other 04-25-2022 12:20-0500 Systolic blood pressure 140 mm[Hg] Halle Webers Other [facility] Other 01-25-2022 16:15-0400 Body height 162.56 cm Emma Bolivar Other [facility] Other 01-25-2022 16:15-0400 Body mass index (BMI) [Ratio] 52.78 kg/m2 Emma Bolivar Other [facility] Other 01-25-2022 16:15-0400 Body temperature 97.1 [degF] Emma Bolivar Other [facility] Other 01-25-2022 16:15-0400 Body weight 139.48 kg Emma Bolivar Other [facility] Other 01-25-2022 16:15-0400 Diastolic blood pressure 70 mm[Hg] Emma Bolivar Other [facility] Other 01-25-2022 16:15-0400 SaO2% (BldA) [Mass fraction] 98 % Emma Bolivar Other [facility] Other 01-25-2022 16:15-0400 Systolic blood pressure 142 mm[Hg] Emma Bolivar Other [facility] Other 12-06-2021 12:20-0400 Body height 162.56 cm Christian Mckenzie Other [facility] Other 12-06-2021 12:20-0400 Body mass index (BMI) [Ratio] 46.34 kg/m2 Christian Mckenzie Other [facility] Other 12-06-2021 12:20-0400 Body weight 122.47 kg Christian Mckenzie Other [facility] Other 11-10-2021 16:20-0400 Body height 162.56 cm Christian Mckenzie Other [facility] Other 11-10-2021 16:20-0400 Body mass index (BMI) [Ratio] 46.34 kg/m2 Christian Mckenzie Other [facility] Other 11-10-2021 16:20-0400 Body weight 122.47 kg Christian Mckenzie Other [facility] Other 09-29-2021 14:00-0400 Body height 162.56 cm Christian Mckenzie Other [facility] Other 09-29-2021 14:00-0400 Body mass index (BMI) [Ratio] 46 kg/m2 Christian Mckenzie Other [facility] Other 09-29-2021 14:00-0400 Body weight 121.56 kg Christian Mckenzie Other [facility] Other 08-30-2021 15:40-0400 Body height 162.56 cm Christian Mckenzie Other [facility] Other 08-30-2021 15:40-0400 Body mass index (BMI) [Ratio] 46 kg/m2 Christian Mckenzie Other [facility] Other 08-30-2021 15:40-0400 Body weight 121.56 kg Christian Mckenzie Other [facility] Other Encounters Encounter Date Encounter Type Care Provider Facility Start: 01-28-2024 ambulatory Janene Lew Facilit y:[facility] Start: 12-18-2023 End: 12-18-2023 ambulatory TK [facility] Start: 12-05-2023 End: 12-05-2023 ambulatory JANENE LEW Not Available Start: 12-03-2023 End: 12-03-2023 ambulatory Elza Conway MD Facility:[facility] Start: 11-19-2023 End: 11-19-2023 ambulatory LYNDSAY CASTORENA Not Available Start: 11-12-2023 End: 11-13-2023 ambulatory BAN CLEMENTE V Not Available Start: 11-01-2023 End: 11-01-2023 Admission to same day surgery center Janene Lew Work Phone: [facility] [place] Start: 11-01-2023 End: 11-01-2023 ambulatory Janene Lew Work Phone: [facility] Work Phone: Start: 10-29-2023 Registered Recurring Janene espitia Work Phone: [facility] Start: 10-24-2023 End: 10-24-2023 ambulatory JANENE LEW Not Available Start: 10-16-2023 End: 10-16-2023 ambulatory Janene Lew Work Phone: [facility] Work Phone: Start: 10-16-2023 End: 10-16-2023 Patient encounter procedure Janene Lew Work Phone: [facility] Work Phone: Start: 10-16-2023 Registered Recurring Janene espitia Work Phone: [facility] Start: 10-11-2023 End: 10-11-2023 Patient encounter procedure Janene Lew Work Phone: [facility] [place] Work Phone: Start: 10-11-2023 End: 10-11-2023 ambulatory Janene Jonesangierufus Work Phone: [facility] Work Phone: Start: 10-01-2023 Non-patient / Non-visit Janeneamanda georgeomkar Work Phone: [facility] Work Phone: Start: 10-01-2023 End: 10-02-2023 Evaluation and management of inpatient Janene Lew Work Phone: [facility] Work Phone: Start: 09-24-2023 End: 09-24-2023 ambulatory Elza Conway MD Facility: [facility] Start: 09-20-2023 End: 09-20-2023 ambulatory SHAIKH TYLER Not Available Start: 09-14-2023 End: 09-14-2023 ambulatory BAN CLEMENTE V Not Available Start: 09-13-2023 End: 09-13-2023 ambulatory JANENE JONESHOLRufus Not Available Start: 09-11-2023 End: 09-11-2023 ambulatory AB [facility] Start: 09-03-2023 Registered Recurring Janene espitia Work Phone: [facility] Start: 08-15-2023 End: 08-15-2023 Patient encounter procedure Janene Louann Work Phone: [facility] Work Phone: Start: 08-10-2023 End: 08-10-2023 Patient encounter procedure Janene Louann Work Phone: [facility] [place] Work Phone: Start: 08-10-2023 End: 08-10-2023 ambulatory Janene Lew Work Phone: [facility] Work Phone: Start: 07-09-2023 End: 07-09-2023 ambulatory Elza Conway MD Facility:[facility] Start: 07-03-2023 End: 07-03-2023 ambulatory JESSICA GASPAR Not Available Start: 07-02-2023 End: 07-02-2023 ambulatory JANENE LEW Not Available Start: 06-26-2023 End: 06-26-2023 ambulatory BAN CLEMENTE V Not Available Start: 06-19-2023 End: 06-19-2023 Patient encounter procedure Janene Louann Work Phone: [facility] [place] Work Phone: Start: 06-19-2023 End: 06-19-2023 ambulatory BAN CLEMENTE V Not Available Start: 05-25-2023 End: 05-25-2023 ambulatory SONIA HAQ Facility:[facility] Start: 05-17-2023 End: 05-17-2023 Patient encounter procedure Janene Lew Work Phone: [facility] [place] Work Phone: Start: 05-17-2023 End: 05-17-2023 ambulatory Janene Lew Work Phone: [facility] Work Phone: Start: 05-03-2023 End: 05-03-2023 ambulatory JANENE LEW Not Available Start: 03-15-2023 Registered Recurring Janene espitia Work Phone: [facility] Start: 03-14-2023 End: 03-14-2023 ambulatory EHAB [facility] Start: 02-19-2023 End: 02-19-2023 ambulatory Elza Conway MD Facility:[facility] Start: 01-01-2023 End: 01-01-2023 ambulatory Elza Conway MD Facility:[facility] [place] Start: 11-29-2022 End: 11-29-2022 ambulatory Halle Mac Other [facility] Other Start: 11-29-2022 Telephone encounter Azaurelia Bakmichaels [facility] Start: 09-18-2022 End: 09-18-2022 ambulatory Ivan Latrell Other [facility] Other Start: 09-18-2022 Telephone encounter Ivan Latrell [facility] Start: 09-07-2022 End: 09-07-2022 ambulatory PONY ROUGHER JANENE LEW Facility: Start: 08-14-2022 End: 08-14-2022 ambulatory Ivan Latrell Other [facility] Other Start: 08-14-2022 Office outpatient vi sit 25 minutes Ivan Latrell [facility] Start: 07-03-2022 End: 07-03-2022 ambulatory Ivan Latrell Other [facility] Other Start: 07-03-2022 Office consultation new/estab patient 60 min Ivan Latrell [facility] Start: 06-24-2022 End: 06-24-2022 Emergency department patient visit Janene Lew Work Phone: [facility] Work Phone: Start: 06-08-2022 End: 06-09-2022 ambulatory AGUSTINA LEW Facility:[facility] Start: 05-29-2022 End: 05-30-2022 ambulatory PONY ROUGHER JANENE LEW Facility:[facility] Start: 05-13-2022 ambulatory PONY ROUGHER JANENE LEW Facil ity:[facility] Start: 05-12-2022 End: 05-12-2022 ambulatory Christian Mckenzie Other [facility] Other Start: 05-12-2022 Office outpatient vi sit 15 minutes Christian Mckenzie [facility] Start: 04-25-2022 End: 04-25-2022 ambulatory Azaurelia Mac Other [facility] Other Start: 04-25-2022 Office outpatient ne w 30 minutes Aziz Bakhous [facility] [place] Start: 03-29-2022 End: 03-30-2022 ambulatory AGUSTINA LEW Facility:[facility] Start: 03-23-2022 End: 03-24-2022 ambulatory PONY ROUGHER JANENE LEW Facility:[facility] Start: 02-19-2022 End: 02-19-2022 ambulatory AGUSTINA LEW Facility:[facility] Start: 02-16-2022 End: 02-16-[address] MYRIAM PERRIN . Facility:[facility] Start: 02-15-2022 ambulatory AGUSTINA LEW Facil ity:[facility] Start: 01-25-2022 End: 01-25-2022 Patient encounter procedure Janene Lew Work Phone: [facility] Start: 01-25-2022 End: 01-25-2022 ambulatory Janene Lopes Reddpanchitoangierufus Work Phone: [facility] Work Phone: Start: 01-25-2022 Office outpatient vi sit 25 minutes Emma Bolivar [facility] Start: 01-25-2022 End: 01-26-2022 ambulatory PONY ROUGHER JANENE AICHHOLZ Facility:[facility] Start: 01-23-2022 End: 01-24-2022 ambulatory PONY ROUGHER JANENE AICHHOLZ Facility:[facility] Start: 01-12-2022 End: 01-13-2022 ambulatory PONY ROUGHER JANENE AICHHOLZ Facility:[facility] Start: 12-21-2021 End: 12-22-2021 ambulatory PONY ROUGHER JANENE KARENHOLZ Facility:[facility] Start: 12-06-2021 End: 12-06-2021 ambulatory Christian Mckenzie Other [facility] Other Start: 12-06-2021 Office outpatient vi sit 15 minutes Christian Mckenzie [facility] Start: 11-30-2021 End: 11-30-2021 ambulatory PONY ROUGHER JANENE AICHHOLZ Facility:[facility] Start: 11-28-2021 End: 11-29-2021 ambulatory PONY ROUGHER JANENE KARENHOLZ Facility:[facility] Start: 11-14-2021 End: 11-14-2021 ambulatory Janene J Reddpanchitoangierufus Work Phone: [facility] Work Phone: Start: 11-14-2021 End: 11-14-2021 Discharged Recurring Janene Jonesangierufus Work Phone: [facility] [place] Start: 11-10-2021 End: 11-10-2021 ambulatory Christian Mckenzie Other [facility] Other Start: 11-10-2021 Postop follow up vis it related to original px Christian Mckenzie [facility] Start: 10-28-2021 End: 10-29-2021 ambulatory PONY ROUGHER JANENE AICHHOLZ Facility:[facility] Start: 10-02-2021 End: 10-02-2021 ambulatory PONY ROUGHER JANENE AICHHOLZ Facility:[facility] Start: 09-29-2021 End: 09-29-2021 ambulatory Christian Mckenzie Other [facility] Other Start: 09-29-2021 Postop follow up vis it related to original px Christian Mckenzie [facility] Start: 08-30-2021 End: 08-30-2021 ambulatory Christian Mckenzie Other [facility] Other Start: 08-30-2021 Postop follow up vis it related to original px Christian Mckenzie [facility] Start: 08-12-2021 [facility] Mckenzie [facility] Start: 08-12-2021 End: 08-12-2021 ambulatory Christian Mckenzie Other [facility] Nurigene Other Start: 08-23-2018 End: 08-25-2018 Evaluation and management of inpatient Peng Merino Facility:[facility] Procedures Date Procedure Procedure Detail Performing Clinician Start: 11-01-2023 Colonoscopy Janene mcfarland Work Phone: Start: 05-17-2023 Urine culture Janene espitia Work Phone: Start: 08-23-2018 FLUOROSCOPY OF MULTI PLE CORONARY ARTERIES USING OTH CONTRAST EHAB A [place] History of percutane ous transluminal coronary angioplasty History of PTCA Janene Lew Work Phone: Plan of Treatment Date Care Activity Detail Author Start: 11-01-2023 [facility] Start: 10-02-2023 [facility] Start: 10-01-2023 Referral to lunchroom aide [facility] Start: 10-01-2023 Hospital admission [facility] Start: 05-17-2023 Bacteria identified in Urine by Culture [facility] Patient Education [facility] Work Phone: Patient referral [facility] Work Phone: Renal function 1999 panel - Serum or Plasma [facility] Renal function 1999 panel - Serum or Plasma [facility] Immunizations Immunization Date Immunization Notes Care Provider Fa cility 05-17-2021 COVID-19 mRNA, Comirnaty (Pfizer) Janene Lew Work Phone: [facility] 09-06-2020 COVID-19 mRNA, Comirnaty (Pfizer) Janene Karenholz Work Phone: [facility] 08-16-2020 COVID-19 mRNA, Comirnaty (Pfizer) Janene Aichholz Work Phone: [facility] 01-31-2019 influenza, injectabl e, quadrivalent, preservative free Janene Aichholz Work Phone: [facility] 01-31-2019 influenza, injectabl e, quadrivalent, contains preservative Christian Mckenzie Other [facility] Other 03-15-2018 influenza, injectabl e, quadrivalent, preservative free Janene Aicholrufus Work Phone: [facility] 03-15-2018 influenza, injectabl e, quadrivalent, contains preservative Christian Mckenzie Other [facility] Other Payers Date Payer Category Payer Private Health Insurance [id number] 2023 Unknown [id number] 2022 Self-pay [id number] 2022 Medicaid [id number] 2.16.840.1.989312.19 2022 Private Health Insurance [id number] 2.16.840.1.980823.19 2022 Private Health Insurance 2022 Unknown 2010 Self-pay [id number] 1970 Unknown [id number] 2.16.840.1.059042.3.579.2.64 7 1970 Unknown [id number] 2.16.840.1.376689.3.579.2.59 3 1970 Unknown [id number] 2.16.840.1.742771.3.579.2.59 3 1970 Unknown [id number] 2.16.840.1.137652.3.579.2.59 3 1970 Unknown [id number] 2.16.840.1.711358.3.579.2.59 3 1970 Unknown [id number] 2.16.840.1.376976.3.579.2.59 3 1970 Unknown [id number] 2.16.840.1.447888.3.579.2.59 3 1970 Unknown [id number] 2.16.840.1.880332.3.579.2.59 3 1970 Unknown [id number] 2.16.840.1.235030.3.579.2.59 3 1970 Unknown [id number] 2.16.840.1.462980.3.579.2.59 3 1970 Unknown [id number] 2.16.840.1.165549.3.579.2.59 3 1970 Unknown [id number] 2.16.840.1.412807.3.579.2.59 3 1970 Unknown [id number] 2.16.840.1.409400.3.579.2.59 3 1970 Unknown [id number] 2.16.840.1.013475.3.579.2.59 3 1970 Unknown [id number] 2.16.840.1.516634.3.579.2.59 3 1970 Unknown [id number] 2.16.840.1.315270.3.579.2.59 3 1970 Unknown [id number] 2.16.840.1.675613.3.579.2.59 3 1970 Unknown [id number] 2.16.840.1.651788.3.579.2.59 3 1970 Unknown [id number] 2.16.840.1.226010.3.579.2.71 8 1970 Unknown [id number] 2.16.840.1.000320.3.579.2.12 59 1970 Unknown [id number] 2.16.840.1.268956.3.579.2.12 59 1970 Unknown [id number] 2.16.840.1.481784.3.579.2.12 59 1970 Unknown [id number] 2.16.840.1.991047.3.579.2.12 1970 Unknown [id number] 2.16.840.1.247125.3.579.2.12 59 1970 Unknown [id number] 2.16.840.1.750188.3.579.2.12 1970 Unknown [id number] 2.16.840.1.068452.3.579.2.12 1970 Unknown [id number] 2.16.840.1.582602.3.579.2.12 1970 Unknown [id number] 2.16.840.1.620170.3.579.2.12 1970 Unknown [id number] 2.16.840.1.877061.3.579.2.12 1970 Unknown [id number] 2.16.840.1.726491.3.579.2.12 1970 Unknown [id number] 2.16.840.1.955700.3.579.2.12 1970 Unknown [id number] 2.16.840.1.665231.3.579.2.12 1970 Unknown [id number] 2.16.840.1.230891.3.579.2.12 1970 Unknown [id number] 2.16.840.1.487591.3.579.2.19 6 1970 Unknown [id number] 2.16.840.1.626569.3.579.2.19 6 1970 Unknown [id number] 2.16.840.1.543059.3.579.2.19 6 1970 Unknown [id number] 2.16.840.1.435533.3.579.2.19 6 1970 Unknown [id number] 2.16.840.1.409267.3.579.2.19 6 1959 Private Health Insurance [id number] 2.16.840.1.748114.19 1959 Unknown [id number] 2.16.840.1.360230.19 Medicaid Anthem [place] Medicaid [id number] Unknown [place] BC/BS [id number] Unknown [id number] 2.16.840.1.158931.3.579.2.53 1 Unknown [id number] 2.16.840.1.175489.3.579.2.53 1 Unknown [id number] 2.16.840.1.759378.3.579.2.53 1 Unknown [id number] 2.16.840.1.555293.3.579.2.53 1 Unknown [id number] 2.16.840.1.703917.3.579.2.53 1 Unknown [id number] 2.16.840.1.859892.3.579.2.53 1 Unknown [id number] 2.16.840.1.308073.3.579.2.53 1 Social History Date Type Detail Facility Unknown if ever smoked [facility] Other Sex Assigned At Sex Assigned At Bir th [facility] Other Start: 08-12-2021 End: 11-01-2023 Tobacco smoking status NHIS Never smoked tobacco (finding) [facility] Start: 1970 Sex Assigned At Female F [facility] Goals Date Patient Goal Desired Activity /State Functional Status Date Assessment Result Facility 10-02-2023 Functional status Patient at Baseline [facility] Work Phone: Mental Status Date Assessment Result Facility 10-02-2023 Cognitive function Cognitive Sta tus Patient at Baseline [facility] Work Phone: Clinical Notes 08-30-2021 to 12-18-2023 Note Date & Type Note Facility 12-18-2023 Note [facility] Note Chief Complaint: Pt is [...] S2 present. R (more content not included)... [facility] 09-11-2023 Note [facility] Cardiology Clinic Note Chief Complaint: Patient [...] HEAD: atraumatic, normocephal (more content not included)... [facility] 03-14-2023 Note [facility] Cardiology Clinic Note Chief Complaint: Patient here for 3 mo follow up CAD, hypertension, and diastolic heart failure. She was switched from lisinopril to Entresto at last visit in Nov 2022 by Radu Arias CNP. Spironolactone was also added. BMP [...] Denies chest pain and palpitations. Went to [facility] recently and had to sit down [...] right ventricular systo (more content not included)... [facility] 08-14-2022 Evaluation note Encounter Date [...] - G89.29) Proceed with current treatment plan [facility] Other 03-20-2023 Evaluation note* Encounter Date Diagnosis [...] negative findings were considered in medical decision-making. [facility] Other 03-11-2023 Hospital Discharge instructions Additional Instructions [...] bowel control high fever or [facility] Work Phone: 1(108) 782-654401-27-2023 Evaluation note* Encounter Date Diagnosis Assessment Notes [...] referral will monty sent to pain managemernt Gorin Nurigene Other 01-10-2023 Evaluation note* Encounter Date Diagnosis [...] obesity (ICD-10 - E66.01) Encouraged weight loss [facility] Other 10-12-2022 Evaluation note* Encounter Date Diagnosis [...] strap. A prescription was sent to the [facility] for new supplies throughout the year, as [...] sleepiness, or poor response to treatment. . [facility] Other 08-23-2022 Evaluation note* Encounter Date Diagnosis [...] of thoracolumbar intervertebral disc (ICD-10 - M51.25) [facility] Other 07-28-2022 Evaluation note* Encounter Date Diagnosis [...] a med check and PT follow up [facility] Other 06-16-2022 Evaluation note* Encounter Date Diagnosis [...] labor Sep, Thoracic myelopathy (ICD-10 - M47.14) [facility] Other 05-17-2022 Evaluation note* Encounter Date Diagnosis [...] Overall she is making a good recovery [facility] Other evaluation noteNo InformationNort Nurigene Other evaluation noteNo assessment information available [facility] Work Phone: Evaluation note* Diagnosis Onset [...] renal disease reso lved Hypertensive nephropathy res [facility] Work Phone: Evaluation note* Diagnosis Onset [...] Vitamin D deficiency acute Hypertensive nephropathy res [facility] Work Phone: History general Narrative - Reported* [...] History Tonsilectomy Teenager Hospitalization History See Above [facility] Other Hisagqi general Narrative - Reported* Type Description Date [...] BACK SURGERY 07/2021 Hospitalization History See Above [facility] Other Summary Purpose Family History No Family [...] 4:43pm Hospital Course Note MR#: [id number] I [facility] Pt. Name: Sherly Humphreys Admitted: 08/23/2018 Discharged: [...] Thoracic myelopathy (M47.14) Referral Organization [facility] urosurgery Referring Provider First Name Christian Referring Provider Last Name Alfonso Referring Provider Specialty Neurologica l Surgery Referred Organization [facility] Pain Managemen t Referred Provider Ivan Sams Referred Address [address] [address] ,[place], [place],[address] Referred Provider Specialty Pain Medicin e Referral [...] pain (M54.5 ) Referral Organization [facility] urosurgery Referring Provider First Name Christian Referring Provider [...] Renal Failure N17.9 N18.9 [facility] hx of colon polyps Reason for Visit [...] section and content) DATE CREATED AUTHOR 11/22/2018 [facility] DATE CREATED AUTHOR AUTHOR'S ORGANIZ ATION 09/22/2022 [facility] DATE CREATED AUTHOR AUTHOR'S ORGANIZ ATION 05/26/2023 [facility] DATE CREATED AUTHOR AUTHOR'S ORGANIZ ATION 12/06/2023 [facility] EPIC DATE CREATED AUTHOR AUTHOR'S ORGANIZ ATION 12/14/2023 [facility] DATE CREATED AUTHOR AUTHOR'S ORGANIZ ATION 12/19/2023 [facility] DATE CREATED AUTHOR AUTHOR'S ORGANIZ ATION 01/29/2024 [facility] REASON FOR VISIT (unrecogniz ed section and content) [id number] WK PO DISC ECTOMY6 wk po Discectomy3 [...] Status: Active Member Role Status Dates Janene Moses Lew Primary Care Provider Active Sta rt: March 15, 2023 Valdemar Alonso MD Attending Provider Active Start: March 15, 2023 Team Status: Inactive Member Role Status Dates Janene Moses Lew Primary Care Provider Active Christian Mckenzie MD Attending Provider Active Team Status: Inactive Member Role Status Dates Janene Moses Lew Primary Care Provider Active Emma Bolivar NP Attending Provider Active Team Status: Inactive Member Role Status Dates Janene Moses Lew Primary Care Provider Active KIAN MooreP- Emergency Provider Active Team Status: Inactive Member Role Status Dates Janene Moses Lew Primary Care Provider Active Sta rt: August 15, 2023 End: August 15, 2023 Halle Mac MD Attending Provider Active Star t: August 15, 2023 End: August 15, 2023 Team Status: Active Member Role Status Dates Janene Moses Lew [...] Status: Active Member Role Status Dates [facility] Provider Active Sta rt: October 01, 2023 Alma Deng MD Admit Provider Active Start: October 01, 2023 Des Benitez MD Attending Provider, Other Provider Active Start: October 01, 2023 Fernando Rosenberg MD Other Provider Active Start: October 01, 2023 Team Status: Inactive Member Role Status Dates [facility] Provider Active Sta rt: October 11, 2023 End: October 11, 2023 Fernando Rosenberg MD Attending Provider Active Start: October 11, 2023 End: October 11, 2023 Team Status: Active Member Role Status Dates [facility] Primary Care Provider Active Sta rt: October 16, 2023 Valdemar Alonso MD Attending Provider Active Start: October 16, 2023 Team Status: Inactive Member Role Status Dates [facility] Care Provider Active Sta rt: October 16, 2023 End: October 16, 2023 Halle Mac MD Attending Provider Active Star t: October 16, 2023 End: October 16, 2023 Team Status: Active Member Role Status Dates [facility] Primary Care Provider Active Sta rt: October 29, 2023 Valdemar Alonso MD Attending Provider Active Start: October 29, 2023 Team Status: Inactive Member Role Status Dates [facility] Primary Care Provider Active Sta rt: November [...] BE BASED ON THE PRIMARY CLINICAL RECORDS. [facility] provides no warranty or guarantee of the accuracy or completeness of information in this document.
== END 2024-01-31 09:27 | disposition home or self-care (01) ==
LOC: MRI 09:26
PROVIDERS: PCP Nurse Practitioner; Visit Provider Nurse Practitioner
DX: M47.816 Spondylosis without myelopathy or radiculopathy, lumbar region (principal); M48.062 Spinal stenosis, lumbar region with neurogenic claudication; M96.1 Postlaminectomy syndrome, not elsewhere classified; M51.369 Other intervertebral disc degeneration, lumbar region without mention of lumbar back pain or lower extremity pain
CPT/HCPCS: 72148

== ENCOUNTER 2024-04-18 08:37 | Outpatient (OUT) | payer BC, SELFPAY ==
--- NOTE | 2024-04-18 | XR_ITS ---
The [address] [address] Patient Name: SHARLENE HUMPHREYS MRN: [id number] date: 1970 Sex: F Assigned Patient Location: Current Patient Location: Accession/Order Number: [id number] Exam Date: 04/18/2024 08:38 Report Date: 04/21/2024 06:29 At the request of: KELLY SWANN Procedure: XR lumbar spine min 4V EXAMINATION: XR lumbar spine min 4V HISTORY: LUMBAR SPINE PAIN COMPARISON: MRI lumbar spine 01/31/2024 FINDINGS: BONES: Mild/moderate degenerative facet arthropathy L3-L4 through L5-S1. No fracture, spondylolisthesis, or change in alignment during flexion and extension. Mild right convex curvature of thoracolumbar spine. DISC SPACES: Mild narrowing L1-L2, L5-S1. PARASPINOUS: Negative. No paraspinous abnormality is seen. OTHER: Negative. XR/XR lumbar spine min 4V IMPRESSION: 1. Mild degenerative changes. 2. No change in alignment during flexion and extension. Electronically authenticated by: KATHY LOBATO Date: 04/21/2024 06:29
== END 2024-04-18 08:38 | disposition home or self-care (01) ==
LOC: EC 08:37
PROVIDERS: PCP Nurse Practitioner; Visit Provider Orthopaedic Surgery Orthopaedic Surgery of the Spine
DX: M54.50 Low back pain, unspecified (principal); M51.369 Other intervertebral disc degeneration, lumbar region without mention of lumbar back pain or lower extremity pain
CPT/HCPCS: 72110

== ENCOUNTER 2024-04-30 10:43 | Outpatient (OUT) | payer BC, SELFPAY ==
--- NOTE | 2024-04-30 11:06 | PM.CN ---
Consult Note: HPI Data of Consult Patient: known to practice within the last 3 years Consult date: 01/01/23 Requesting Physician: Becca Meneses NP Primary Care Provider: Janene Lew NP Consult Narrative Reason for consult: f/u Narrative: pleasant [id number] who presents for evaluation. increasing middle and low back pain. imaging reviewed of lumbar spine consistent with lumbar stenosis with NC, lumbar spondylosis and facet arthropathy, thoracic spine consists of degenerative changes and bulging disc. continues to engage in >6 week course of provider directed home exercises 2x/week, with limited benefit. underwent two previous discectomies, with little relief. her previous neurosurgeon does not recommend further surgery. was advised to consider scs.. cannot take NSAIDs, hx of gastric bypass. she utilizes gabapentin, tizanidine, and percocet. denies adverse med side effects. Today pain 5/10 in right middle back, bilateral buttock, bilateral low back, feels like a burning sharp pain, increasing to 10/10 with standing walking working lifting bending and sleep. Patient continues to find functional improvement from current medication regimen. Again recently evaluated by JERRY Kc who recommends no surgical intervention, but rather spinal cord stim trial. cc:: CC: Becca Meneses NP Review of Systems ROS Status of ROS 10 or more systems reviewed and unremarkable except as noted in history and below Musculoskeletal Reports: back pain and extremity pain PFSH PFSH Medical History Bipolar 1 disorder ?F31.9 - Bipolar disorder, unspecified (ICD-10) Anxiety ?F41.9 - Anxiety disorder, unspecified (ICD-10) Diabetes ?E11.9 - Type 2 diabetes mellitus without complications (ICD-10) URIEL on CPAP ?G47.33 - Obstructive sleep apnea (adult) (pediatric) (ICD-10) Sleep apnea ?G47.30 - Sleep apnea, unspecified (ICD-10) High cholesterol ?E78.00 - Pure hypercholesterolemia, unspecified (ICD-10) CHF (congestive heart failure) ?I50.9 - Heart failure, unspecified (ICD-10) Surgical History History of hysterectomy ?Z90.710 - Acquired absence of both cervix and uterus (ICD-10) History of shoulder surgery ?Z98.890 - Other specified postprocedural states (ICD-10) History of neck surgery ?Z98.890 - Other specified postprocedural states (ICD-10) History of back surgery ?Z98.890 - Other specified postprocedural states (ICD-10) History of heart artery stent ?Z95.5 - Presence of coronary angioplasty implant and graft (ICD-10) Social History Smoking status: Never smoker Meds Home Medications and Allergies Home Medications ?Medication ?Instructions ?Recorded ?Confirmed ?Type amlodipine 10 mg tablet 10 mg PO QDAY 12/18/22 12/03/23 History aripiprazole 10 mg tablet 10 mg PO QDAY 12/18/22 12/03/23 History aspirin 81 mg chewable tablet 81 mg PO QDAY 12/18/22 12/03/23 History atorvastatin 80 mg tablet 80 mg PO QDAY 12/18/22 12/03/23 History buspirone 30 mg tablet 30 mg PO BID 12/18/22 12/03/23 History cariprazine 6 mg capsule (Vraylar) 6 mg PO Q24H 12/18/22 12/03/23 History fenofibrate nanocrystallized 145 145 mg PO QDAY 12/18/22 12/03/23 History mg tablet furosemide 20 mg tablet 40 mg PO QDAY 12/18/22 12/03/23 History gabapentin 600 mg tablet 600 mg PO QDAY PRN neuromuscular 12/18/22 12/03/23 History blockade isosorbide mononitrate 30 mg 30 mg PO QDAY 12/18/22 12/03/23 History tablet,extended release 24 hr metoprolol succinate 25 mg 12.5 mg PO QDAY 12/18/22 12/03/23 History tablet,extended release 24 hr pioglitazone 45 mg tablet 45 mg PO QDAY 12/18/22 12/03/23 History sacubitril 49 mg-valsartan 51 mg 1 tab PO BID 12/18/22 12/03/23 History tablet (Entresto) spironolactone 25 mg tablet 25 mg PO QDAY 12/18/22 12/03/23 History tizanidine 4 mg tablet 4 mg PO Q8H PRN muscle spasticity 12/18/22 12/03/23 History cetirizine 10 mg tablet (Zyrtec) 10 mg PO DAILY PRN allergy symptoms 01/01/23 12/03/23 History ferrous sulfate 134 mg (27 mg 134 mg PO DAILY 01/01/23 12/03/23 History iron) tablet (High Potency Iron) fluoxetine 10 mg capsule (Prozac) 10 mg PO DAILY 09/24/23 12/03/23 History oxycodone-acetaminophen 7.5 mg-325 1 tab PO BID PRN pain #60 tabs 10/23/23 12/03/23 Rx mg tablet (Percocet) diazepam 10 mg tablet 10 mg PO PRN sedation 12/03/23 History oxycodone-acetaminophen 7.5 mg-325 1 tab PO BID PRN pain #60 tabs 12/21/23 Rx mg tablet (Endocet) oxycodone-acetaminophen 7.5 mg-325 1 tab PO BID PRN pain #60 tabs 01/23/24 Rx mg tablet (Percocet) oxycodone-acetaminophen 7.5 mg-325 1 tab PO BID PRN pain #60 tabs 02/20/24 Rx mg tablet (Percocet) oxycodone-acetaminophen 7.5 mg-325 1 tab PO BID PRN pain #60 tabs 03/24/24 Rx mg tablet (Percocet) oxycodone-acetaminophen 7.5 mg-325 1 tab PO BID PRN pain #60 tabs 04/22/24 Rx mg tablet (Percocet) Allergies Allergy/AdvReac Type Severity Reaction Status Date / Time Sulfa (Sulfonamide Allergy Mild Hives Verified 12/03/23 10:09 Antibiotics) prochlorperazine (From AdvReac Intermediate Agitated Verified 12/03/23 10:09 Compazine) promethazine (From Phenergan) AdvReac Intermediate Agitated Verified 12/03/23 10:09 sulfamethoxazole (From AdvReac Mild Hives Verified 12/03/23 10:09 Bactrim) trimethoprim (From Bactrim) AdvReac Mild Hives Verified 12/03/23 10:09 Exam Constitutional Documenting provider has reviewed patient's vital signs: yes Common normals: no apparent distress, oriented x3, healthy appearing, alert and well nourished General appearance: cooperative HENMT Common normals: normocephalic, hearing grossly normal bilaterally and moist oral mucous membranes Head and scalp: normocephalic Eye Common normals: PERRL Pupil: PERRL Neck & C-Spine Common normals: full ROM General: normal visual inspection Chest Common normals: inspection of chest normal Respiratory Common normals: normal respiratory effort, no retractions and no use of accessory muscles Back & Pelvis Thoracic spine/upper back: ROM limited, pain with ROM and thoracic spinal tenderness Lumbar spine/lower back: ROM limited, pain with ROM and straight leg raise negative bilaterally Other: positive facet loading at T10-L3 radiculopathy following T12-L1 patterns increased pain with standing and walking, improved with sitting and forward flexion strength 5/5 in BLE, sensation intact Extremity Common normals: normal to inspection and full ROM Neuro Common normals: oriented x3, CN's II-XII intact bilaterally, moves all extremities, no focal motor deficits, no sensory deficits noted and deep tendon reflexes 2+ bilaterally Sensorium/orientation: alert Motor exam: strength 5/5 throughout and no movement abnormalities noted Psych Common normals: mental status grossly normal, thought process normal, cooperative, affect normal, speech normal and activity/motor behavior normal Speech: normal speech Thought process: normal thought process Results Additional Findings Additional findings: If on a controlled substance or opioids, I have checked an [place] report on this patient and there are no aberrancies noted in the prescribing history.??If on a controlled substance or opioid a drug screen was completed and reviewed within the last year, and if there has not been a drug screen completed we ordered one today to monitor higher risk, state monitored pain medication use. As part of providing excellent, safe, comprehensive care, the following was completed at our patient's visit: 1. A medication reconciliation and review to ensure accurate knowledge of current/active medications, including asking our patients to inform us about any [id number] medications or herbal remedies/nutritional supplements/alternative remedies. 2. A review to specifically ensure our patients have had annual screening for screening for depression, screening for tobacco use, and screening for unhealthy alcohol use. For concerning screenings had a discussion with the patient, provided patient education, and recommended follow-up with primary care provider when appropriate. If patient noted with a risk of falling, they received education on strength, gait, and balance training to prevent future risk of falling. Assessment and Plan Assessment and Plan (1) Lumbar spondylosis: Assessment and Plan: The patient has had over 3 months of moderate to severe low back pain with functional impairment and inadequate response to conservative care including NSAIDS (unless there are contraindication such as concurrent blood thinners), multiple oral or topical pain medications, and home exercise program/physical therapy.? Patient has completed >6 weeks of guided home exercise program and/or formal physical therapy program without relief of their symptoms.? The Oswestry Disability Index was completed, and the patient scored a 38%.? The patient noted the following:?? moderate to severe pain, pain with ADLs, pain with walking, pain impacting sleep, pain impacting social life and travel? (2) Failed back syndrome: (3) Thoracic radiculopathy: (4) Thoracic stenosis: (5) Chronic prescription opiate use: Assessment and Plan: I feel these medications are improving the patient's quality of life and allow them to tolerate activities of daily living as well as participate in recreational activity.? The patient does not report intolerable side effects. The patient is NOT opioid naive and non-pharmacologic and non-opioid treatment has failed to significantly relieve the patient's pain and improve functionality. The patient has a diagnosis that is related to a somatic or visceral pain etiology. ? ?? I reviewed with the patient the potential risks and side effects with the use of? opioid medications including but not limited to respiratory depression,? sedation, and even . I verified the patient has access to naloxone should? these effects occur. I advised the patient to avoid the use of any other? sedation substances including alcohol, THC, and benzodiazepines while? taking opioid medications due to the risk of compounding side effects and? detrimental outcomes. I reviewed the [employer], pain treatment agreement, urine? drug screen, and opioid start talking forms. The patient was advised to let? their family know they had Naloxone in case they would need to administer? the medication.? ?? A drug screen was completed within the last year, and no aberrancies were noted regarding their use of controlled substances. The patient understands they are subject to the terms and conditions of the pain contract that they have signed. ? ?? I have checked an [place] report on this patient today and there are no aberrancies noted in the prescribing history.? (6) Chronic pain syndrome: Plan proceed with [facility] spinal cord stimulation trial with IV sedation under fluoroscopy once psych evaluation complete. risks vs benefits reviewed. continue current medications, risks vs benefits reviewed. continue HEP as tolerated. f/u with spinal cord stim trial lead removal.
== END 2024-04-30 10:44 | disposition home or self-care (01) ==
LOC: PM 10:44
PROVIDERS: PCP Nurse Practitioner; Visit Provider Nurse Practitioner
DX: M47.816 Spondylosis without myelopathy or radiculopathy, lumbar region (principal); M96.1 Postlaminectomy syndrome, not elsewhere classified; M54.14 Radiculopathy, thoracic region; M48.04 Spinal stenosis, thoracic region; Z79.891 Long term (current) use of opiate analgesic; G89.4 Chronic pain syndrome
CPT/HCPCS: G0463

== ENCOUNTER 2024-07-05 09:57 | Emergency (ER) | payer BC, SELFPAY ==
[2024-07-05 10:02] VITALS: BP 136/80; PULSE 60; TEMP 36.6; O2SAT 100; BMI 42.1
--- OUTSIDE RECORDS SUMMARY | 2024-07-05 10:08 | XMS_ITS | CCD ---
Author Organization [facility] Care Team Providers Care Practice Advisor Name Role Phone Peng Merino Admitting Unavailable Peng Merino Attending Unavailable GEOVANNI BRUNNER Primary Care Unavailable HAMMAD LING Referring Unavailabl e OK Procedure Practitioner Unavailab TK Beaulieu Surgeon Unavailable Christian Hamilton Unavailable Janene Lew Primary Care Provider MD Christian Hamilton Attending Provider ELIER Bolivar Emma Attending Provider [phone] Emma Bolivar Unavailable Halle Mac Unavailable Janene Lew Primary Care Provider STU HernandezLYNNE Antunez Emergency Provider Ivan Sams Unavailable AICHHOLZ, UX DESIGN MANAGER JANENE Consulting Unavailable AICHHOLZ, UX DESIGN MANAGER JANENE Attending Unavailable AICHHOLZ, UX DESIGN MANAGER JANENE Admitting Unavailable AICHHOLZ, UX DESIGN MANAGER JANENE Primary Care Unavailable AICHHOLZ, UX DESIGN MANAGER JANENE Consulting Unavailable AICHHOLZ, UX DESIGN MANAGER JANENE Attending Unavailable AICHHOLZ, UX DESIGN MANAGER JANENE Admitting Unavailable AICHHOLZ, UX DESIGN MANAGER JANENE Primary Care Unavailable AICHHOLZ, UX DESIGN MANAGER JANENE Primary Care Unavailable AICHHOLZ, UX DESIGN MANAGER JANENE Consulting Unavailable AICHHOLZ, UX DESIGN MANAGER JANENE Admitting Unavailable AICHHOLZ, UX DESIGN MANAGER JANENE Attending Unavailable DR MYRIAM SAMANIEGO Attending Unavailable DR MYRIAM SAMANIEGO Admitting Unavailable DR MYRIAM SAMANIEGO Consulting Unavailable AICHHOLZ, UX DESIGN MANAGER JANENE Primary Care Unavailable AICHHOLZ, UX DESIGN MANAGER JANENE Primary Care Unavailable DWAYNE FRIEDMAN Admitting Unavailable DWAYNE FRIEDMAN Attending Unavailable CLEMENT PLUMMER Consulting Unavailable Wan Jenkins Consulting Unavailable AICHHOLZ, UX DESIGN MANAGER JANENE Primary Care Unavailable EVON TRAMMELL Attending Unavailable JP, EVON Admitting Unavailable EVON TRAMMELL Consulting Unavailable LUZ COELLO Consulting Unavailable NATHAN COLE Consulting Unavailable LIN GARRETT Consulting Unavailable AICHHOLZ, UX DESIGN MANAGER JANENE Primary Care Unavailable AICHHOLZ, UX DESIGN MANAGER JANENE Admitting Unavailable AICHHOLZ, UX DESIGN MANAGER JANENE Attending Unavailable DR ALEX LALEN V Consulting Unavailable AICHHOLZ, UX DESIGN MANAGER JANENE Consulting Unavailable AICHHOLZ, UX DESIGN MANAGER JANENE Consulting Unavailable AICHHOLZ, UX DESIGN MANAGER JANENE Attending Unavailable AICHHOLZ, UX DESIGN MANAGER JANENE Admitting Unavailable AICHHOLZ, UX DESIGN MANAGER JANENE Primary Care Unavailable DR KATHY LOBATO Consulting Unavailable AICHHOLZ, UX DESIGN MANAGER JANENE Attending Unavailable AICHHOLZ, UX DESIGN MANAGER JANENE Admitting Unavailable AICHHOLZ, UX DESIGN MANAGER JANENE Primary Care Unavailable DR ALEX ALLEN V Consulting Unavailable AICHHOLZ, UX DESIGN MANAGER JANENE Consulting Unavailable AICHHOLZ, UX DESIGN MANAGER JANENE Consulting Unavailable AICHHOLZ, UX DESIGN MANAGER JANENE Primary Care Unavailable AICHHOLZ, UX DESIGN MANAGER JANENE Attending Unavailable AICHHOLZ, UX DESIGN MANAGER JANENE Admitting Unavailable AICHHOLZ, UX DESIGN MANAGER JANENE Primary Care Unavailable AICHHOLZ, UX DESIGN MANAGER JANENE Admitting Unavailable AICHHOLZ, UX DESIGN MANAGER JANENE Consulting Unavailable AICHHOLZ, UX DESIGN MANAGER JANENE Attending Unavailable DR KATHY LOBATO Consulting Unavailable AICHHOLZ, UX DESIGN MANAGER JANENE Primary Care Unavailable BAKHOUS, AZIZ Admitting Unavailable BAKHOUS, AZIZ Attending Unavailable AICHHOLZ, UX DESIGN MANAGER JANENE Attending Unavailable AICHHOLZ, UX DESIGN MANAGER JANENE Admitting Unavailable AICHHOLZ, UX DESIGN MANAGER JANENE Primary Care Unavailable AICHHOLZ, UX DESIGN MANAGER JANENE Primary Care Unavailable AICHHOLZ, UX DESIGN MANAGER JANENE Consulting Unavailable AICHHOLZ, UX DESIGN MANAGER JANENE Attending Unavailable AICHHOLZ, UX DESIGN MANAGER JANENE Admitting Unavailable DR KATHY LOBATO Consulting Unavailable AICHHOLZ, UX DESIGN MANAGER JANENE Primary Care Unavailable AICHHOLZ, UX DESIGN MANAGER JANENE Admitting Unavailable AICHHOLZ, UX DESIGN MANAGER JANENE Attending Unavailable AICHHOLZ, UX DESIGN MANAGER JANENE Consulting Unavailable AICHHOLZ, UX DESIGN MANAGER JANENE Primary Care Unavailable DOLORES STRATTON Attending Unavailable DOLORES STRATTON Admitting Unavailable MR DELIA HENDRIX Consulting Unavailable DOLORES STRATTON Consulting Unavailable ALEX AVINA Consulting Unavailable AICHHOLZ, UX DESIGN MANAGER JANENE Primary Care Unavailable JP, EVON Attending Unavailable JP, EVON Admitting Unavailable JP, EVON Consulting Unavailable Aichholgabo, Janene J Primary Care Provider [phone] MD Valdemar Alonso Attending Provider MD Fauzia Huffman Attending Provider UnavailMD Halle Felton Referring Provider [phone] MARKEL HAQ Primary Care Unavailable Aichholz, Janene J Attending Unavailable Aichholz, Janene J Admitting Unavailable Aichholgabo, Janene J Primary Care Provider MD Fauzia Huffman Attending Provider Unavailabl MD Halle Ritter Referring Provider [phone] MD Halle Mac Attending Provider [phone] Janene Lew Primary Care Provider MD Valdemar Alonso Attending Provider MD Alma Deng Admit Provider [phone] MD Emmanuel [facility] Other Provider MD Fernando Rosenberg Attending Provider [phone] MD Valdemar Alonso Attending Provider MD Valdemar Alonso Attending Provider MD Ban Clemente Attending Provider Girenee SHARMA, Andrius Vytautas Attending Unavailable Giedraitis , Andrius Vytautas Attending Unavailable Girenee SHARMA, Andrius Vytautas Attending Unavailable Gieddung SHARMA, Andrius Vytautas Attending Unavailable Giedraautumn SHARMA, Andrius Vytautas Attending Unavailable ELTAHAWY, EHAB Referring Unavailable ELTAHAWY, EHAB Attending Unavailable ELTAHAWY, EHAB Attending Unavailable ELTAHAWY, EHAB Attending Unavailable Markel Haq MD Primary Care Provider [phone] Louann CORE MACHINE OPERATOR, Janene Unavailable Fauzia Huffman Admitting Unavailable Fauzia Huffman Attending Unavailable Aichholz, Janene J Primary Care Unavailable Fauzia Huffman Admitting Unavailable SproutFauzia Attending Unavailable Bakhous, Aziz Referring Unavailable Aichholz, Janene J Primary Care Unavailable Bakhous, Aziz Admitting Unavailable Bakhous, Aziz Attending Unavailable Aichholz, Janene J Primary Care Unavailable Clemente, Ban Admitting Unavailable Clemente, Ban Attending Unavailable Aichholz, Janene J Primary Care Unavailable Celeste, Valdemar Admitting Unavailab le Celeste, Valdemar Attending Unavailab le Aichholz, Janene J Primary Care Unavailable Doamekpor, Fernando E Admitting Unavailab le Doamekpor, Fernando E Attending Unavailab le Aichholz, Janene J Primary Care Unavailable Alma Deng Admitting Unavailable Aichholz, Janene J Primary Care Unavailable Des Benitez Unavailable Doamekpor, Fernando E Attending Unavailab le Bakhous, Aziz Admitting Unavailable Bakhous, Aziz Attending Unavailable Aichholz, Janene J Primary Care Unavailable MARYA CASTORENA Attending Unavailable CLEMENTE V, BAN Attending Unavailable AICHHOLZ, JANENE Referring Unavailable CLEMENTE V, BAN Attending Unavailable AICHHOLZ, JANENE Attending Unavailable JESSICA GASPAR Attending Unavailable AICHHOLZ, JANENE Referring Unavailable JESSICA GASPAR Referring Unavailable AICHHOLZ, JANENE Attending Unavailable CLEMENTE V, BAN Attending Unavailable SHAIKH SCOTT Attending Unavailable AICHHOLZ, JANENE Attending Unavailable CLEMENTE V, BAN Attending Unavailable PETMARYA HERR Attending Unavailable AICHHOLZ, JANENE Referring Unavailable AICHHOLZ, JANENE Attending Unavailable MARYA CASTORENA Attending Unavailable AICHHOLZ, JANENE Attending Unavailable Allergies Allergy Classification Reported Allergen(s) Allergy Type Date of Onset Reaction(s) Facility (2 sources) Cephalexin Drug Allergy 10-06-19 10 [facility] Repository (2 sources) Levamisole Drug Allergy 05-22-19 13 [facility] (2 sources) Omeprazole; Translations: [OMEPRAZOLE] Drug Allergy 04-20-19 16 [facility] (14 sources) Prochlorperazine Drug Allergy 10-06-19 10 Unknown [facility] (14 sources) Sulfamethoxazole / Trimethoprim Drug Allergy 10-06-19 10 Unknown [facility] (12 sources) Penicillins (Antibiotic) Propensity to adverse reactions Unknown [facility] Other (20 sources) Promethazine; Translations: [PROMETHAZINE] Drug Allergy 06-28-19 14 Unknown, Seizure [facility] (20 sources) empagliflozin; Translations: [EMPAGLIFLOZIN] Drug Allergy 08-11-19 22 Unknown Reaction [facility] (20 sources) Penicillins; Translations: [Penicillins] Allergy to substance 06-28-19 14 [facility] (20 sources) Prochlorperazine; Translations: [PROCHLORPERAZINE] Drug Allergy 06-28-19 14 [facility] (20 sources) Sulfamethoxazole; Translations: [SULFAMETHOXAZOLE] Drug Allergy 06-28-19 14 [facility] (9 sources) Trimethoprim; Translations: [trimethoprim] Drug Allergy 08-11-19 22 [facility] (1 source) Sulfonamides (Antibiotic) Drug allergy (disorder) 06-10-19 15 [facility] Repository (20 sources) zolpidem; Translations: [zolpidem] Drug Allergy 10-01-19 24 [facility] (20 sources) Cephalexin; Translations: [CEPHALEXIN] Drug Allergy 06-28-19 14 [facility] Repository (1 source) Doxycycline; Translations: [DOXYCYCLINE CALCIUM] Drug Allergy 06-28-19 14 [facility] Rep[facility] (1 source) Esomeprazole; Translations: [ESOMEPRAZOLE MAGNESIUM] Drug Allergy 06-23-19 17 [facility] Repository (20 sources) pantoprazole; Translations: [PANTOPRAZOLE] Drug Allergy 06-23-19 17 GI intolerance [facility] Repository (20 sources) Sulfamethoxazole / Trimethoprim; Translations: [SULFAMETHOXAZOLE-T RIMETHOPRIM] Drug Allergy 04-03-20 14 Rash [facility] Repository (1 source) [place]ENER[place]; Translations: [PHENERGAN PLAIN] Propensity to adverse reactions to drug (disorder) 09-17-19 16 [facility] Repository (20 sources) Esomeprazole Drug Allergy 04-27-19 24 GI intolerance [facility] (20 sources) Omeprazole Drug Allergy 04-27-19 24 GI intolerance [facility] (1 source) Promethazine Drug Allergy 03-12-20 24 [facility] Repository Medications Current Medications Medication Drug Class(es) Dates Sig (Normalized) Sig (Original) acetaminophen 325 mg / oxyCODONE hydrochloride 7.5 mg oral tablet (20 sources) Opioid Agonist Start: 10-01-2023 End: 10-16-2023 take 1 tablet by mouth every eight hours Oxycodone-Acetami nophen Active 1 TAB PO Every 8 hours October 16, 2023 1:11pm Start: 06-24-2022 End: 08-15-2023 take 1 tablet by mouth every six hours Oxycodone-Acetaminophen Discontinued 1 TAB PO Q6H 10 3 June 24, 2022 August 15, 2023 10:12am take 1 tablet by brandin th in the morning oxyCODONE-acetaminophen (Percocet) 7.5-325 MG tablet Take 1 tablet by mouth in the morning and 1 tablet before bedtime. Active [id number] 200 actuat albuterol 0.09 mg/actuat metered dose inhaler (6 sources) beta2-Adrenergic Agonist Start: 06-04-2021 take 1 puff(s) by inhalation every four hours Albuterol Sulfate (Ventolin Hfa) 90 mcg/actuation HFA aerosol inhaler Active 2 PUFF INHALATION Q4H June 04, 2021 1:00am Albuterol Active amLODIPine 10 mg oral tablet (20 sources) Dihydropyridine Calcium Channel Seema Start: 10-16-2023 End: 02-13-2024 take 1 tablet by mouth once daily amLODIPine (Norvasc) 10 MG tablet Indications: Primary hypertension (CMS/HCC) Take 1 tablet (10 mg) by mouth Daily 30 tablet 3 01/14/2024 Active Start: 08-15-2023 End: 10-02-2023 take 10 mg by mouth once daily Amlodipine Discontinued 10 MG PO Daily August 15, 2023 12:00am October 02, 2023 10:55am take 1 tablet by brandin th every twenty-four hours amLODIPine Besylate 5 MG 1 tablet Orally Once a day Active amLODIPine Besyl ate Active ARIPiprazole 30 mg oral tablet (20 sources) Atypical Antipsychotic Start: 08-23-2023 take 1 tablet by mouth once daily ARIPiprazole (Abilify) 30 MG tablet Take 30 mg by mouth Daily 08/23/2023 Active Start: 08-15-2023 End: 10-16-2023 take 20 mg by mouth once daily Aripiprazole Discontinu ed 20 MG PO Daily August 15, 2023 [...] aspirin 81 mg delayed release oral tablet (20 sources) Platelet Aggregation Inhibitor, Nonsteroidal Anti-inflammatory Drug [...] 04, 2021 1:00am August 15, 2023 10:06am azithromycin 250 mg oral tablet (8 sources) Macrolide Antimicrobial Start: 03-06-2024 End: 06-16-2024 azithromycin (Zithromax) 250 MG tablet Indications: Acute non-recurrent pansinusitis 2 pills day #1, then 1 pill day #2-#5 6 tablet 03/06/2024 06/16/2024 Discontinued (Therapy completed) benztropine mesylate 0.5 mg oral tablet (12 sources) Anticholinergic, Antihistamine Start: 02-18-2024 benztropine (Cogentin) 0.5 MG tablet 02/18/2024 Active Biotin (6 sources) Biotin Active Blood Glucose Monitoring Suppl (True Metrix Air Glucose Meter) w/Device kit (20 sources) Start: 07-02-2023 Blood Glucose Monitoring Suppl (True Metrix Air Glucose Meter) w/Device kit Indications: Type 2 diabetes mellitus without complication, without long-term current use of insulin ([facility]) 1 each Daily 1 kit 07/02/2023 Active busPIRone hydrochloride 30 mg oral tablet (20 sources) Start: 06-04-2021 take 30 mg by mouth twice daily Buspirone Active 30 MG PO Twice daily June 04, 2021 1:00am Calcium Citrate + D 315-200 MG-UNIT (6 sources) take 1 tablet by mouth twice daily Calcium Citrate + D 315-200 MG-UNIT 1 tablet Orally Twice a day Active cariprazine 6 mg oral capsule (20 sources) Atypical Antipsychotic Start: 02-27-2024 take 1 capsule by mouth once daily Vraylar 6 MG capsule Take 1 capsule by mouth Daily 02/27/2024 Active Start: 11-29-2023 End: 03-06-2024 Vraylar 4.5 MG capsule 11/2802/19/2024 Discontinued Start: 08-15-2023 take 6 mg by mouth once daily Cariprazine Active 6 MG PO Daily August 15, 2023 12:00am Vraylar Active cetirizine hydrochloride 10 mg oral tablet (20 sources) Histamine-1 Receptor Antagonist Start: 10-06-2019 take 1 tablet by mouth once daily Cetirizine (Zyrtec) 10 mg Tablet Active 10 MG PO Daily June 04, 2021 1:00am Cetirizine HCl A ctive cholecalciferol 0.125 mg oral capsule (20 sources) Vitamin D Start: 08-15-2023 take 125 ug by mouth once daily Cholecalciferol (Vitamin D3) Active 125 MCG PO Daily August 15, 2023 12:00am take 1 capsule by mouth in the m orning cholecalciferol (Vitamin D-3) 125 MCG (5000 UT) capsule Take 5,000 Units by mouth in the morning. Active ciprofloxacin 500 mg oral tablet (11 sources) Quinolone Antimicrobial Start: 12-05-2023 End: 12-15-2023 take 1 tablet by mouth in the morning ciprofloxacin (Cipro) 500 MG tablet Indications: Left lower quadrant abdominal pain Take 1 tablet (500 mg) by mouth in the morning and 1 tablet (500 mg) before bedtime. Do all this for 10 days. 20 tablet 12/05/2023 12/15/2023 Active Start: 08-13-2021 End: 08-15-2023 take 1 tablet by mouth every two hours Ciprofloxacin Hcl (Cipro) 500 mg Tablet Discontinued 500 MG PO Q12H August 13, 2021 12:00am August 15, 2023 10:07am administer dose at least 2 hrs before/6 hrs after dairy products, calcium, zinc, and/or iron-containing products docusate sodium 50 mg / sennosides, assisted 8.6 mg oral tablet (20 sources) take 1 tablet by mouth once daily senna-docusate sodium (Senokot-S) 8.6-50 MG tablet Take 1 tablet by mouth Daily OTC PO daily Active escitalopram 20 mg oral tablet (13 sources) Serotonin Reuptake Inhibitor Start: 2 take 20 mg by mouth once daily Escitalopram Oxalate Active 20 MG PO Daily June 04, 2021 1:00am Escitalopram Oxa late in am 1100 Active fenofibrate 145 mg oral tablet (20 sources) Peroxisome Proliferator Receptor alpha Agonist Start: 11-16-2023 End: 12-16-2023 take 1 tablet by mouth once daily fenofibrate (Tricor) 145 MG tablet Indications: Mixed hyperlipidemia (CMS/HCC) Take 1 tablet (145 mg) by mouth Daily 30 tablet 5 11/16/2023 Active Start: 12-05-2019 take 145 mg by mouth once daily Fenofibrate Nanocrystallized Active 145 MG PO Daily June 04, 2021 1:00am Fenofibrate Acti ve fluconazole 150 mg oral tablet (5 sources) Azole Antifungal Start: 12-18-2023 End: 02-19-2024 fluconazole (Diflucan) 150 MG tablet Indications: Antibiotic-induced yeast infection 1 dose, repeat in 72 hours 2 tablet 12/18/2023 02/19/2024 Discontinued FLUoxetine 20 mg oral capsule (20 sources) Serotonin Reuptake Inhibitor Start: 10-10-2023 take 1 capsule by mouth once daily FLUoxetine (PROzac) 20 MG capsule Take 20 mg by mouth Daily 10/10/2023 Active Start: 10-01-2023 End: 10-16-2023 take 10 mg by mouth once daily Fluoxetine Discontinued 10 MG PO Daily October 01, 2023 12:00am October 16, 2023 1:08pm fluticasone propionate 0.05 mg/actuat metered dose nasal spray (20 sources) Corticosteroid Start: 10-24-2023 take 2 spray(s) nasal route once daily fluticasone (Flonase) 50 MCG/ACT nasal spray Indications: Seasonal allergies Administer 2 sprays into each nostril Daily 16 g 5 10/24/2023 Active Start: 06-04-2021 End: 10-16-2023 Fluticasone Propionate Activ e 2 SPRAY INTRANASAL Daily October 16, 2023 1:10pm Fluticasone Prop ionate Active furosemide 20 mg oral tablet (20 sources) Loop Diuretic Start: 04-30-2023 furosemide (La six) 20 MG tablet Indications: Swelling of both lower extremities Take 1 tablet (20 mg) by mouth in the morning. May increase to 2 pills IF worsening in leg swelling. 60 tablet 2 04/30/2023 Active take 1 tablet by brandin th every twenty-four hours Lasix 20 MG 1 tablet Orally Once a day Active gabapentin 600 mg oral tablet (20 sources) Anti-epileptic Agent Start: 10-23-2023 take 1 tablet by mouth twice daily as needed gabapentin (Neurontin) 600 MG tablet Indications: Restless leg syndrome Take 1 tablet (600 mg) by mouth 2 (two) times a day as needed (RLS) 60 tablet 5 10/23/2023 Active Start: 10-02-2023 End: 10-16-2023 take 600 mg [...] Active Start: 11-10-2021 take 2 tablets by [facility] every twelve hours Gabapentin 600 MG 2 tablets Orally bid for 20 days Oct, Active Start: 09-29-2021 take 1-2 capsules by mouth twice daily Gabapentin 300 MG 1-2 capsule Orally twice a day for 30 day(s) Sep, Active Start: 12-05-2019 take 1 capsule by [facility] every twenty-four hours Gabapentin 300 MG [...] 2023 12:00am take 1 tablet by brandin every twenty-four hours LaMICtal 200 MG 1 tablet Orally Once a day Active magnesium oxide 400 mg oral tablet (19 sources) Start: 12-09-2018 take 1 tablet by brandin every twenty-four hours Magnesium Oxide 400 MG [...] day Active Metoprolol Succi marcos ER Active metoprolol succinate XL (Toprol-XL) 12.5 mg 24 hr split tablet (20 sources) metoprolol succi marcos XL (Toprol-XL) 12.5 mg 24 hr split tablet Take 12.5 mg by mouth Daily Pt has 25mg tabs and slitting the tab in half = taking 1/2 of 25mg Active metroNIDAZOLE 500 mg oral tablet (3 sources) Nitroimidazole Antimicrobial Start: 12-05-19 End: 12-15-19 take 1 tablet by mouth every eight hours metroNIDAZOLE (Flagyl) 500 MG tablet Indications: Left lower quadrant abdominal pain Take 1 tablet (500 mg) by mouth every 8 (eight) hours for 10 days No alcohol 30 tablet 12/05/2023 12/15/2023 Active Mounjaro 5 MG/0.5ML solution auto-injector (2 sources) Start: 02-10-20 End: 02-19-20 Mounjaro 5 MG/0.5ML solution auto-injector inject 5 mg subcutaneously every 7 (seven) days for 28 days 02/10/2024 02/19/2024 Discontinued nitroglycerin 0.4 mg sublingual tablet (18 sources) Nitrate Vasodilator Start: 12-18-19 nitroglycerin (Nitrostat) 0.[address] 1 TABLET UNDER TONGUE FOR CHEST PAIN. CALL 911 IF NO IMPROVEMENT AFTER 5 MIN. REPEAT DOSE TWICE IF NEEDED 12/18/2023 Active Nitrostat 0.4 MG Sublingual Active ondansetron 4 mg oral tablet (1 source) Serotonin-3 Receptor Antagonist Start: 05-22-2019 take 1 tablet by mouth three times daily as needed for nausea Zofran 4 mg 1 tablet Orally TID as needed for nausea for 5 days May, Active 24 hr paliperidone 3 mg extended release oral tablet (12 sources) Atypical Antipsychotic Start: 12-27-2023 End: 06-16-2024 take 1 tablet by mouth once daily in the morning paliperidone (Invega) 3 MG 24 hr tablet TAKE 1 TABLET BY MOUTH DAILY IN THE MORNING 12/27/2023 06/16/2024 Discontinued (Therapy completed) pioglitazone 45 mg oral tablet (18 sources) Peroxisome Proliferator Receptor alpha Agonist, Peroxisome Proliferator Receptor gamma Agonist, Thiazolidinedione Start: 08-15-2023 take 1 tablet by mouth [...] HCl Active Potassium (6 sources) Potassium Active rOPINIRole 0.25 mg oral tablet (20 sources) Nonergot Dopamine Agonist Start: 03-21-2024 End: 04-20-2024 take 1 tablet by mouth at bedtime rOPINIRole (Requip) 0.25 MG tablet Indications: Restless leg syndrome Take 1 tablet (0.25 mg) by mouth at bedtime 30 tablet 5 03/21/2024 Active Start: 10-24-2023 End: 01-17-2024 take 1 tablet by mouth at bedtime rOPINIRole (Requip) 0.25 MG tablet Indications: Restless leg syndrome Take 1 tablet (0.25 mg) by mouth at bedtime 30 tablet 2 12/18/2023 01/17/2024 Active sacubitril 49 mg / valsartan 51 mg oral tablet (20 sources) Angiotensin 2 Receptor Seema Start: 10-01-2023 End: 10-16-2023 take 0.5 tablet by mouth twice daily Sacubitril-Valsartan (Entresto) 49-51 mg tablet Active 0.5 TAB PO Twice daily October 16, 2023 1:24pm sacubitril-valsa rtan (Entresto) 49-51 MG tablet Take 0.5 tablets by mouth in the morning and 0.5 tablets before bedtime. Pt is to take 1/2 tab in morning and 1/2 tab at night to equal 1 tab per day. Active Tirzepatide (2 sources) Start: 10-16-2023 Tirzepatide (Mounjaro) 5 mg/0.5 mL pen injector Active 5 MG SUBCUT every week October 16, 2023 12:00am Tirzepatide (Mounjaro) 5 MG/0.5ML solution pen-injector (2 sources) Start: 12-19-2023 End: 01-16-2024 Tirzepatide (Mounjaro) 5 MG/0.5ML solution pen-injector Indications: Type 2 diabetes mellitus with stage 4 chronic kidney disease, without long-term current use of insulin (CMS/HCC) 5 mg by Other route every 7 (seven) days for 28 days 2 mL 3 12/19/2023 01/16/2024 Active Tirzepatide (Mounjaro) 7.5 MG/0.5ML solution auto-injector (12 sources) Start: 02-19-2024 inject 7.5 mg by subcutaneous injection every week Tirzepatide (Mounjaro) 7.5 MG/0.5ML solution auto-injector Indications: Type 2 diabetes mellitus with other circulatory complications (CMS/HCC) Inject 7.5 mg under the skin 1 (one) time per week 2 mL 3 02/19/2024 Active tiZANidine 4 mg oral tablet (20 sources) Central alpha-2 Adrenergic Agonist Start: 02-25-2024 End: 06-26-2024 take 1 tablet by mouth every eight hours as needed for muscle spasms and muscle spasms tiZANidine (Zanaflex) 4 MG tablet Indications: Muscle spasm Take 1 tablet (4 mg) by mouth every 8 (eight) hours if needed for muscle spasms 90 tablet 2 05/27/2024 06/26/2024 Active Start: 12-07-2023 End: 01-06-2024 take 1 tablet by mouth every eight hours as needed for muscle spasms and muscle spasms tiZANidine (Zanaflex) 4 MG tablet Indications: Muscle spasm Take 1 tablet (4 mg) by mouth every 8 (eight) hours if needed for muscle spasms 90 tablet 1 12/07/2023 Active Start: 08-15-2023 take 1 tablet by brandin th every eight hours as needed for muscle spasms and muscle spasms tiZANidine (Zanaflex) 4 MG tablet Indications: Muscle spasm Take 1 tablet (4 mg) by mouth every 8 (eight) hours if needed for muscle spasms 90 tablet 1 09/27/2023 Active Start: 06-04-2021 End: 08-13-2021 take 4 mg by mouth at bedtime Tizanidine Discontinued 4 MG PO Bedtime June 04, 2021 1:00am August 13, 2021 2:52pm Start: 06-04-2021 End: 08-13-2021 take 4 mg by mouth at bedtime Tizanidine Discontinued 4 MG PO Bedtime June 04, 2021 1:00am August 13, 2021 2:52pm tiZANidine HCl A ctive vitamin b12 2.5 mg sublingual tablet (20 sources) Vitamin B12 Start: 10-01-2023 take 2500 ug under the tongue once daily Cyanocobalamin (Vitamin B-12) Active 2500 MCG SUBLINGUAL Daily October 01, 2023 12:00am Start: 10-06-2019 take 1 tablet by brandin th once daily Cyanocobalamin 500 MCG 1 tablet Orally Once a day for 30 day(s) Sep, Not-Taking Cyanocobalamin ( Vitamin B-12) [address] 5,000 mg under the tongue 1 (one) time each day Active take 1 tablet by brandin th once [...] Not-Taking cyclobenzaprine hydrochloride 10 mg oral tablet (8 sources) Muscle Relaxant Start: 08-13-2021 End: 06-24-2022 take 10 mg by mouth three times daily Cyclobenzaprine Discontinued 10 MG PO Three times daily 50 August 13, 2021 12:00am June 24, 2022 6:53pm doxycycline hyclate 100 mg oral capsule (1 source) Tetracycline-clas s Drug take 1 capsule by mouth every [...] mononitrate 30 mg extended release oral tablet (20 sources) Nitrate Vasodilator Start: 06-04-2021 End: 10-02-2023 [...] 2021 1:00am August 15, 2023 10:11am Mirtazapine befo re 2129 Active mometasone furoate 0.05 mg/actuat metered dose nasal spray (3 sources) Corticosteroid Start: 10-01-2023 End: 10-16-2023 take 1 spray(s) nasal route once daily Mometasone (Allergy Nasal (Mometasone)) 50 mcg/actuation spray,non-aerosol Discontinued 2 SPRAY INTRANASAL Daily October 01, 2023 12:00am October 16, 2023 1:11pm administer into each nostril Mounjaro 5 MG/0.5ML solution pen-injector (8 sources) Start: 10-15-2023 End: 12-19-2023 Mounjaro 5 MG/0.5ML solution pen-injector 5 mg by Other route every 7 (seven) days 10/15/2023 12/19/2023 Discontinued (Reorder) Start: 10-15-2023 Mounjaro 5 MG/ 0.5ML solution pen-injector 5 mg by Other route every 7 (seven) days 10/15/2023 Active Multivitamin preparation (2 sources) Start: 10-06-2019 take [...] October 16, 2023 1:12pm Start: 10-01-2023 Tirzepatide (Lupe rushing) 2.5 mg/0.5 mL pen injector Active 2.5 MG SUBCUT .weekly October 01, 2023 12:00am Triamcinolone (3 sources) Corticosteroid Start: 10-01-2023 End: 10-16-2023 Triamcinolone Acetonide Disc ontinued 110 MCG INTRANASAL Daily October 01, 2023 12:00am October 16, 2023 1:12pm Start: 10-01-2023 Triamcinolone Acetonide Active 110 MCG INTRANASAL Daily October 01, 2023 12:00am Problems Active Problems Problem Classification Problem Date Documented Da te Episodic/Chronic Allergic reactions (12 sources) Environmental allergy; Translations: [Other allergy status, other than to drugs and biological substances] Episodic Anxiety disorders (20 sources) Generalized anxiety disorder; Translations: [Generalized anxiety disorder] Onset: 2 07-02-2023 Chronic Chronic kidney disease (20 sources) Chronic kidney disease stage 3; Translations: [Chronic kidney disease, stage 3 unspecified] Onset: 4 07-11-2023 Chronic Chronic kidney disease (2 sources) Chronic kidney disease; Translations: [Chronic kidney disease, stage 3b] Onset: 4 Conditions associated with dizziness or vertigo (2 sources) Dizziness and giddiness; Translations: [Dizziness and giddiness] Onset: 4 Episodic Congestive heart failure; nonhypertensive (20 sources) Chronic diastolic heart failure; Translations: [Chronic diastolic (congestive) heart failure] Onset: 6 07-02-2023 Chronic Coronary atherosclerosis and other heart disease (20 sources) Coronary arteriosclerosis; Translations: [Atherosclerotic heart disease of [place] coronary artery without angina pectoris] Onset: 3 08-11-2021 Chronic Deficiency and other anemia (1 source) Anemia in chronic kidney disease; Translations: [Anemia in chronic kidney disease] Onset: 4 Chronic Diabetes mellitus with complications (20 sources) Type 2 diabetes mellitus; Translations: [Type 2 diabetes mellitus with hypoglycemia without coma] Onset: 2 Resolved: 4 Chronic Diabetes mellitus without complication (2 sources) Type 2 diabetes mellitus without complications; Translations: [TYPE 2 DM WITHOUT COMPLICATIONS] Onset: 3 Chronic Disorders of lipid metabolism (20 sources) Dyslipidemia; Translations: [Hyperlipidemia, unspecified] Onset: 2 Chronic Diverticulosis and diverticulitis (20 sources) Diverticulosis of large intestine; Translations: [Diverticulosis of large intestine without perforation or abscess without bleeding] Onset: 4 11-12-2023 Chronic Esophageal disorders (20 sources) Gastroesophageal reflux disease; Translations: [Gastro-esophageal reflux disease without esophagitis] Onset: 4 Chronic Essential hypertension (20 sources) Essential hypertension; Translations: [Essential (primary) hypertension] Onset: 3 08-10-2021 Chronic Headache; including migraine (20 sources) Tension-type headache; Translations: [Tension-type headache, unspecified, not intractable] Onset: 4 02-25-2020 Chronic Hypertension with complications and secondary hypertension (20 sources) Hypertensive renal disease; Translations: [Hypertensive chronic kidney disease with stage 1 through stage 4 chronic kidney disease, or unspecified chronic kidney disease] Onset: 4 Chronic Mood disorders (20 sources) Bipolar disorder, unspecified; Translations: [Depressive disorder] Onset: 2 Resolved: 4 04-30-2023 Chronic Nonspecific chest pain (20 sources) Chest pain; Translations: [Other chest pain] Onset: 3 06-04-2021 Episodic Nutritional deficiencies (20 sources) Vitamin D deficiency; Translations: [Vitamin D deficiency, unspecified] Onset: 4 10-10-2023 Chronic Other aftercare (1 source) 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; Translations: [CARE HOME CURRENT USE OF ASPIRIN] Onset: 3 Episodic Other aftercare (1 source) termination clerk (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) use of oral hypoglycemic drugs; Translations: [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 HYPOGLYCEMIC DX] Onset: 3 Episodic Other aftercare (1 source) Other assisted (current) drug therapy; Translations: [OTH CARE HOME CURRENT DRUG THERAPY] Onset: 3 Episodic Other gastrointestinal disorders (20 sources) Irritable bowel syndrome with diarrhea; Translations: [Irritable bowel syndrome with diarrhea] Onset: 4 07-02-2023 Chronic Other hereditary and degenerative nervous system conditions (20 sources) Restless legs; Translations: [Restless legs syndrome] Onset: 4 10-23-2023 Chronic Other hereditary and degenerative nervous system conditions (1 source) Restless legs syndrome; Translations: [RESTLESS LEGS SYNDROME] Onset: 3 Chronic Other liver diseases (1 source) Fatty (change of) liver, not elsewhere classified; Translations: [FATTY CHANGE LIVER NEC] Onset: 3 Chronic Other lower respiratory disease (4 sources) Shortness of breath; Translations: [SHORTNESS OF BREATH] Onset: 3 Episodic Other nervous system disorders (12 sources) Chronic pain; Translations: [Other chronic pain] Chronic Other nervous system disorders (12 sources) Sleep-wake schedule disorder, delayed phase type; Translations: [Circadian rhythm sleep disorder, delayed sleep phase type] Chronic Other nervous system disorders (4 sources) Other chronic pain Onset: 2 Resolved: 2 Chronic Other nervous system disorders (1 source) Circadian rhythm sleep disorder, delayed sleep phase type Chronic Other nutritional; endocrine; and metabolic disorders (20 sources) Hypomagnesemia; Translations: [Hypomagnesemia] Onset: 4 10-10-2023 Chronic Other nutritional; endocrine; and metabolic disorders (10 sources) Morbid obesity; Translations: [Morbid (severe) obesity due to excess calories] 07-11-2023 Chronic Other nutritional; endocrine; and metabolic disorders (8 sources) Morbid (severe) obesity due to excess calories; Translations: [Morbid obesity] Onset: 3 Chronic Other nutritional; endocrine; and metabolic disorders (1 source) Body mass index (BMI) 50.0-59.9, adult; Translations: [BODY MASS INDEX BMI 50.0-59.9 ADULT] Onset: 3 Chronic Other nutritional; endocrine; and metabolic disorders (1 source) Body mass index (BMI) 45.0-49.9, adult; Translations: [BODY MASS INDEX BMI 45.0-49.9 ADULT] Onset: 2 Chronic Other nutritional; endocrine; and metabolic disorders (6 sources) Hypomagnesemia; Translations: [Disorders of magnesium metabolism] Onset: 4 08-15-2023 Chronic Other nutritional; endocrine; and metabolic disorders (18 sources) Severe obesity; Translations: [Class 3 severe obesity due to excess calories with serious comorbidity and body mass index (BMI) of 45.0 to 49.9 in adult ([facility])] Onset: 4 02-19-2024 Chronic Other nutritional; endocrine; and metabolic disorders (11 sources) Obesity caused by energy imbalance; Translations: [Morbid (severe) obesity due to excess calories] Onset: 4 12-05-2023 Chronic Other nutritional; endocrine; and metabolic disorders (6 sources) Hyperuricemia without signs of inflammatory arthritis and tophaceous disease; Translations: [Other abnormal blood chemistry] Onset: 4 08-15-2023 Episodic Other upper respiratory disease (20 sources) Seasonal allergy; Translations: [Other seasonal allergic rhinitis] Onset: 4 04-30-2023 Chronic Residual codes; unclassified (12 sources) Sleep apnea; Translations: [Sleep apnea, unspecified] Chronic Residual codes; unclassified (20 sources) Obstructive sleep apnea syndrome; Translations: [Obstructive sleep apnea (adult) (pediatric)] Onset: 4 04-30-2023 Chronic Residual codes; unclassified (2 sources) Obstructive sleep apnea (adult) (pediatric); Translations: [OBSTRUCTIVE SLEEP APNEA] Onset: 3 Chronic Residual codes; unclassified (4 sources) Localized edema; Translations: [Localized edema] 07-11-2023 Episodic Spondylosis; intervertebral disc disorders; other back problems (20 sources) Intervertebral disc prolapse; Translations: [Other intervertebral disc displacement, thoracolumbar region] Onset: 2 Resolved: 2 Chronic Unclassified (1 source) CHRN KIDNEY DISEASE STG 3 UNSP; Translations: [CHRN KIDNEY DISEASE STG 3 UNSP] Onset: 2 Unclassified (1 source) LOW BACK PAIN, UNSPECIFIED; Translations: [LOW BACK PAIN, UNSPECIFIED] Onset: 2 Unclassified (3 sources) CONTACT W/AND (SUSP) EXPOS COVID-19; Translations: [CONTACT W/AND (SUSP) EXPOS COVID-19] Onset: Past or Other Problems Problem Classification Problem Date Documented Da te Episodic/Chronic Abdominal hernia (20 sources) Ventral hernia without obstruction or gangrene; Translations: [Disorder of abdominal wall] Onset: 05-31-2022 07-02-2023 Episodic Abdominal pain (20 sources) Unspecified abdominal pain; Translations: [Left lower quadrant pain] Onset: 02-21-2022 Resolved: 12-05-2023 Episodic Acute and unspecified renal failure (20 sources) Acute renal failure syndrome; Translations: [Acute kidney failure, unspecified] Onset: 10-11-2023 10-10-2023 Episodic Calculus of urinary tract (20 sources) Kidney stone; Translations: [Calculus of kidney] Onset: 07-02-2023 07-02-2023 Episodic Cardiac dysrhythmias (20 sources) Bradycardia; Translations: [Bradycardia, unspecified] Onset: 04-30-2023 04-30-2023 Episodic Deficiency and other anemia (4 sources) Anemia, unspecified; Translations: [ANEMIA UNSPECIFIED] Onset: 01-23-2022 Episodic Deficiency and other anemia (20 sources) Anemia; Translations: [Anemia, unspecified] Onset: 04-30-2023 Resolved: 10-24-2023 10-24-2023 Episodic Disorders of teeth and jaw (20 sources) Infection of tooth; Translations: [Periapical abscess without sinus] Onset: 09-20-2023 09-20-2023 Episodic Fluid and electrolyte disorders (20 sources) Hyperkalemia; Translations: [Hyperkalemia] Onset: 10-04-2021 Episodic Genitourinary symptoms and ill-defined conditions (20 sources) Delay when starting to pass urine; Translations: [Hesitancy of micturition] Onset: 04-30-2023 04-30-2023 Episodic Headache; including migraine (1 source) Headache; including migraine Intestinal infection (20 sources) Enterocolitis due to Clostridium difficile, not specified as recurrent; Translations: [Clostridium difficile diarrhea] Onset: 12-25-2021 Resolved: 07-02-2023 07-02-2023 Episodic Malaise and fatigue (20 sources) Decline in functional status; Translations: [Other malaise] Onset: 09-11-2023 Resolved: 03-06-2024 08-10-2021 Episodic Mood disorders (20 sources) Mood disorders Onset: 05-03-2023 05-03-2023 Mycoses (20 sources) Opportunistic mycosis; Translations: [Candidiasis, unspecified] Onset: 10-03-2023 10-03-2023 Episodic Nutritional deficiencies (20 sources) Cobalamin deficiency; Translations: [Deficiency of other specified B group vitamins] Onset: 10-24-2023 10-10-2023 Episodic Open wounds of head; neck; and trunk (4 sources) Unspecified open wound of unspecified part of neck, initial encounter; Translations: [UNS OPEN WOUND UNS PART NECK INIT] Onset: 01-12-2022 Episodic Other and unspecified benign neoplasm (20 sources) History of polyp of colon; Translations: [History of colon polyps] Onset: 09-14-2023 09-14-2023 Episodic Other and unspecified benign neoplasm (20 sources) Polyp of cecum; Translations: [Benign neoplasm of cecum] Onset: 11-12-2023 11-12-2023 Episodic Other connective tissue disease (1 source) Pain in right leg; Translations: [PAIN IN RIGHT LEG] Onset: 05-31-2022 Episodic Other connective tissue disease (1 source) Arthrodesis status; Translations: [ARTHRODESIS STATUS] Onset: 01-14-2022 Episodic Other connective tissue disease (1 source) Myalgia, unspecified site; Translations: [MYALGIA UNSPECIFIED SITE] Onset: 12-25-2021 Episodic Other connective tissue disease (20 sources) Swelling of bilateral lower limbs; Translations: [Other specified soft tissue disorders] Onset: 04-30-2023 Resolved: 03-06-2024 04-30-2023 Episodic Other connective tissue disease (20 sources) Bilateral heel pain; Translations: [Pain in right foot] Onset: 05-03-2023 05-03-2023 Episodic Other connective tissue disease (20 sources) Spasm; Translations: [Other muscle spasm] Onset: 07-24-2023 07-24-2023 Episodic Other gastrointestinal disorders (4 sources) Diarrhea, unspecified; Translations: [DIARRHEA UNSPECIFIED] Onset: 11-30-2021 Episodic Other gastrointestinal disorders (20 sources) History of bariatric surgical procedure; Translations: [Bariatric surgery status] Onset: 07-02-2023 07-02-2023 Episodic Other liver diseases (20 sources) Elevated liver enzymes level; Translations: [Abnormal levels of other serum enzymes] Onset: 07-02-2023 07-02-2023 Episodic Other lower respiratory disease (1 source) Dyspnea, unspecified; Translations: [DYSPNEA UNSPECIFIED] Onset: 12-25-2021 Episodic Other lower respiratory disease (20 sources) Dyspnea; Translations: [Dyspnea, unspecified] Onset: 07-02-2023 07-02-2023 Episodic Other nutritional; endocrine; and metabolic disorders (20 sources) Body mass index 40+ - severely obese; Translations: [Body mass index (BMI) 50.0-59.9, adult] Onset: 05-03-2023 Resolved: 02-19-2024 02-19-2024 Chronic Other nutritional; endocrine; and metabolic disorders (20 sources) Hyperuricemia; Translations: [Hyperuricemia without signs of inflammatory arthritis and tophaceous disease] Onset: 10-24-2023 10-10-2023 Episodic Other screening for suspected conditions (not mental disorders or infectious disease) (20 sources) Encounter for screening mammogram for malignant neoplasm of breast; Translations: [Abnormal findings on diagnostic imaging of other parts of musculoskeletal system] Onset: 03-27-2022 Episodic Other upper respiratory infections (10 sources) Acute pansinusitis; Translations: [Acute pansinusitis, unspecified] Onset: 03-06-2024 03-06-2024 Episodic Residual codes; unclassified (8 sources) Localized [...] CARRIED OUT PT LEAVE] Onset: 02-16-2022 Episodic Residual codes; unclassified (20 sources) Edema of lower extremity; Translations: [Localized edema] Onset: 04-30-2023 04-30-2023 Episodic Residual codes; unclassified (20 sources) Insomnia; Translations: [Insomnia, unspecified] Onset: 07-02-2023 07-02-2023 Episodic Residual codes; unclassified (20 sources) H/O: urinary disease; Translations: [Personal history of other specified conditions] Onset: 07-02-2023 07-02-2023 Episodic Spondylosis; intervertebral disc disorders; other back problems (20 sources) Radiculopathy, lumbar region; Translations: [Chronic low back pain] Onset: 08-30-2021 Resolved: 08-30-2021 Episodic Syncope (2 sources) Syncope and collapse; Translations: [Syncope and collapse] Onset: 09-11-2023 Episodic Unclassified (1 source) CONTACT W/AND (SUSP) EXPOS COVID-19; Translations: [CONTACT W/AND (SUSP) EXPOS COVID-19] Onset: 12-21-2021 Urinary tract infections (20 sources) Escherichia coli urinary tract infection; Translations: [Urinary tract infection, site not specified] Onset: 07-05-2023 07-05-2023 Episodic Results Test Name Value Interpretation Reference Range Facility HbA1c (Bld) [Mass fraction]o n 06-16-2024 Interpretation and review of laboratory results Normal [facility] 06-16-2024 HbA1c (Bld) [Mass fraction] 5.5 % [facility] Ferritinon 03-11-2024 Ferritin [Mass/Vol] 135.5 ng/mL Normal 11.0-306.8 [facility] Comment on above: Performed By: #### U CREAmanda, TAYLOR, UEOS #### [address] Hemogram CBC Without Diffon 03-11-2024 Erythrocyte distribution width (RBC) [Ratio] 14.6 % Normal 11.9-15.3 [facility] Comment on above: Performed By: #### P ROCRERAT, FE and TIBC, URIC, URMACRERAT, UA, MG, CBCNO, GEENA, [id number], [id number], PTH, RENAL #### [address] Hematocrit (Bld) [Volume fraction] 34.9 % Normal 34.0-46.4 [facility] Comment on above: Performed By: #### P ROCRERAT, FE and TIBC, URIC, URMACRERAT, UA, MG, CBCNO, GEENA, [id number], [id number], PTH, RENAL #### [address] Hemoglobin (Bld) [Mass/Vol] 11.4 g/dL Low 11.8-15.4 [facility] Comment on above: Performed By: #### P ROCRERAT, FE and TIBC, URIC, URMACRERAT, UA, MG, CBCNO, GEENA, [id number], [id number], PTH, RENAL #### [address] MCH (RBC) [Entitic mass] 29.7 pg Normal 24.7-34.3 [facility] Comment on above: Performed By: #### P ROCRERAT, FE and TIBC, URIC, URMACRERAT, UA, MG, CBCNO, GEENA, [id number], [id number], PTH, RENAL #### [address] MCV (RBC) [Entitic vol] 91.3 fL Normal 80-100 [facility] Comment on above: Performed By: #### P ROCRERAT, FE and TIBC, URIC, URMACRERAT, UA, MG, CBCNO, GEENA, [id number], [id number], PTH, RENAL #### [address] Mean Corpuscular HGB Conc 32.6 g/dL Normal 32.0-35.0 [facility] Comment on above: Performed By: #### P ROCRERAT, FE and TIBC, URIC, URMACRERAT, UA, MG, CBCNO, GEENA, [id number], [id number], PTH, RENAL #### [address] Platelet mean volume (Bld) [Entitic vol] 8.7 fL Normal 6.3-10.7 [facility] Comment on above: Result Comment: PERF ORMED BY: [place] [id number] PATHOLOGIST DIGITAL COMMENTATOR SHANIQUE CALDERON M.D. Performed By: #### P ROCRERAT, FE and TIBC, URIC, URMACRERAT, UA, MG, CBCNO, GEENA, [id number], [id number], PTH, RENAL #### [address] Platelets (Bld) [#/Vol] 328 10*3/uL Normal 150-450 [facility] Comment on above: Performed By: #### P ROCRERAT, FE and TIBC, URIC, URMACRERAT, UA, MG, CBCNO, GEENA, [id number], [id number], PTH, RENAL #### [address] RBC (Bld) [#/Vol] 3.83 10*6/uL Normal 3.60-5.00 [facility] Comment on above: Performed By: #### P ROCRERAT, FE and TIBC, URIC, URMACRERAT, UA, MG, CBCNO, GEENA, [id number], [id number], PTH, RENAL #### [address] WBC (Bld) [#/Vol] 5.1 10*3/uL Normal 3.8-11.6 [facility] Comment on above: Performed By: #### P ROCRERAT, FE and TIBC, URIC, URMACRERAT, UA, MG, CBCNO, GEENA, [id number], [id number], PTH, RENAL #### [place] [id number] [place] Iron and TIBC Profileon 11 % Iron Saturation 30.1 % Normal 20-50 [facility] Comment on above: Performed By: #### U CREA, URNA, UEOS #### [address] Iron [Mass/Vol] 118 ug/dL Normal 50-212 [facility] Comment on above: Performed By: #### U CREA, URNA, UEOS #### [address] Total Iron Binding Capacity 392 ug/dL Normal 255-450 [facility] Comment on above: Performed By: #### U CREA, URNA, UEOS #### [address] Transferrin [Mass/Vol] 280 mg/dL Normal 203-362 [facility] Comment on above: Performed By: #### U CREA, URNA, UEOS #### [address] Magnesiumon 03-11-2024 Magnesium [Mass/Vol] 1.9 mg/dL Normal 1.9-2.7 [facility] Comment on above: Performed By: #### U CREA, URNA, UEOS #### [place] [address] [place] MicroAlb Creat Ratio,Uon Albumin DL <= 20 mg/L (U) [Mass/Vol] mg/dL Normal 0.0-1.8 [facility] Comment on above: Performed By: #### U CREA, URNA, UEOS #### [address] Creatinine, Urine (Random) 57.00 mg/dL Normal [facility] Comment on above: Result Comment: No r eference range established Performed By: #### U CREA, URNA, UEOS #### [place] [address] [place] Microalbumin/Creatinin e Ratio Not performed Normal 0.0-30.0 [facility] Comment on above: Performed By: #### U CREA, URNA, UEOS #### [address] Parathyroid Hormone Intacton 03-11-2024 Parathyroid Hormone Intact 30.6 pg/mL Normal 12-88 [facility] Comment on above: Result Comment: PERF ORMED BY: [place] [address] PATHOLOGIST DIGITAL COMMENTATOR SHANIQUE CALDERON M.D. Performed By: #### U CREA, URNA, UEOS #### [address] Protein Creat Ratio Ur Rando mon 03-11-2024 Protein (U) [Mass/Vol] 5 mg/dL Normal 0-9 e [facility] Comment on above: Performed By: #### U CREA, URNA, UEOS #### [address] Urine Protein/Creatinine Ratio 88 mg/g{Cre} Normal 0-200 [facility] Comment on above: Result Comment: PERF ORMED BY: [place] [address] PATHOLOGIST DIGITAL COMMENTATOR SHANIQUE CALDERON M.D. Performed By: #### U CREA, URNA, UEOS #### [address] Renal Function Panelon 03-11 Albumin [Mass/Vol] 3.9 g/dL Normal 3.5-5.7 [facility] Comment on above: Performed By: #### U CREA, URNA, UEOS #### [address] Anion gap [Moles/Vol] 12.5 mmol/L Normal 6.0-15.0 e [facility] Comment on above: Performed By: #### U CREA, URNA, UEOS #### [address] [place] [address] [place] Calcium [Mass/Vol] 9.4 mg/dL Normal 8.6-10.3 [facility] Comment on above: Performed By: #### U CREA, URNA, UEOS #### [address] Chloride [Moles/Vol] 110 mmol/L High 98-107 [facility] Comment on above: Performed By: #### U CREA, URNA, UEOS #### [address] CO2 [Moles/Vol] 25.0 mmol/L Normal 21.0-31.0 [facility] Comment on above: Performed By: #### U CREA, URNA, UEOS #### [address] Creatinine [Mass/Vol] 1.50 mg/dL High 0.60-1.20 [facility] Comment on above: Performed By: #### U CREA, URNA, UEOS #### [address] Estimated GFR 41.412 mL/Min Normal [facility] Comment on above: Performed By: #### U CREA, URNA, UEOS #### [place] [address] [place] Glucose [Mass/Vol] 88 mg/dL Normal 70-100 [facility] Comment on above: Result Comment: [place] Glucose Reference Range is dependent on time and content of last meal. Glucose of more than 200 mg/dL in a nonstressed, ambulatory subject supports the diagnosis of Diabetes Mellitus. ADA recommended reference range Performed By: #### U CREA, URNA, UEOS #### [place] [address] [place] Phosphate [Mass/Vol] 2.7 mg/dL Normal 2.5-4.5 [facility] Comment on above: Performed By: #### U CREA, URNA, UEOS #### [address] [address] [place] Potassium [Moles/Vol] 4.5 mmol/L Normal 3.5-5.1 [facility] Comment on above: Performed By: #### U CREA, URNA, UEOS #### [address] Sodium [Moles/Vol] 143 mmol/L Normal 136-145 [facility] Comment on above: Performed By: #### U CREA, URNA, UEOS #### [address] Urea nitrogen [Mass/Vol] 18 mg/dL Normal 7-25 [facility] [facility] Comment on above: Performed By: #### U CREA, URNA, UEOS #### [address] Uric Acidon 03-11-2024 Urate [Mass/Vol] 6.3 mg/dL Normal 2.3-6.6 [facility] Comment on above: Performed By: #### U CREA, URNA, UEOS #### [address] Urinalysison 03-11-2024 Appearance (U) Clear Normal Clear [facility] Comment on above: Order Comment: Name Collection Type:: Clean-Voided Midstream Performed By: #### U CREA, URNA, UEOS #### [address] Bilirubin,Urine Negative Normal Negative [facility] Comment on above: Order Comment: Name Collection Type:: Clean-Voided Midstream Performed By: #### U CREA, URNA, UEOS #### [place] [address] [place] Color (U) Light-Yellow Normal Yellow [facility] Comment on above: Order Comment: Name Collection Type:: Clean-Voided Midstream Performed By: #### U CREA, URNA, UEOS #### [address] Glucose Ql (U) Normal Normal Normal [facility] Comment on above: Order Comment: Name Collection Type:: Clean-Voided Midstream Performed By: #### U CREA, URNA, UEOS #### [address] Ketones Ql (U) Negative Normal Negative [facility] Comment on above: Order Comment: Name Collection Type:: Clean-Voided Midstream Performed By: #### U CREA, URNA, UEOS #### [address] Leukocyte esterase Test strip Ql (U) Negative Normal Negative [facility] Comment on above: Order Comment: Name Collection Type:: Clean-Voided Midstream Performed By: #### U CREA, URNA, UEOS #### [place] [address] [place] Nitrite,Urine Negative Normal Negative [facility] Comment on above: Order Comment: Name Collection Type:: Clean-Voided Midstream Performed By: #### U CREA, URNA, UEOS #### [address] Occult Blood,Urine Negative Normal Negative [facility] Comment on above: Order Comment: Name Collection Type:: Clean-Voided Midstream Result Comment: PERF ORMED BY: [place] [id number] PATHOLOGIST DIGITAL COMMENTATOR SHANIQUE CALDERON M.D. Performed By: #### U CREA, URNA, UEOS #### [place] [address] [place] pH (U) 5.5 [pH] Normal 5.0-9.0 [facility] Comment on above: Order Comment: Name Collection Type:: Clean-Voided Midstream Performed By: #### U CREA, URNA, UEOS #### [address] Protein,Urine Negative Normal Negative [facility] Comment on above: Order Comment: Name Collection Type:: Clean-Voided Midstream Performed By: #### U CREA, URNA, UEOS #### [address] Specificy [place]arm[place],Urine 1.011 Normal 1.001-1.030 [facility] Comment on above: Order Comment: Name Collection Type:: Clean-Voided Midstream Performed By: #### U CREA, URNA, UEOS #### [address] Urobilinogen,Urine Normal Normal Normal [facility] Comment on above: Order Comment: Name Collection Type:: Clean-Voided Midstream Performed By: #### U CREA, URNA, UEOS #### [address] Vit. B12/Folate Profileon Cobalamin (Vitamin B12) [Mass/Vol] 4548 pg/mL High 180-914 [facility] Comment on above: Performed By: #### U CREA, URNA, UEOS #### [address] Folate 8.2 ng/mL Normal >5.9 [facility] Comment on above: Result Comment: Maria te reference range: >5.9 ng/ml The WHO technical consultation on folate and vitamin b12 deficiencies has determined that folate concentrations less than 4 ng/ml are considered deficient. Performed By: #### U CREA, URNA, UEOS #### [address] Vitamin D 25 Hydroxy Totalon 03-11-2024 Vitamin D 25 Hydroxy Total 25.0 ng/mL Low 30-100 [facility] Comment on above: Result Comment: AWAIS MIN D STATUS 25(OH)VITAMIN D RANGE (ng/mL) Deficient <20 Insufficient 20 to <30 Sufficient 30 to 100 Reference: Karen MF,Nicole NC, Ed LI, et al. Evaluation,treatment, and prevention of vitamin D deficiency; an Endocrine Society clinical practice guideline. JCEM. 2010; 96(7):1911-30. PERFORMED BY: [place] [id number] PATHOLOGIST DIGITAL COMMENTATOR SHANIQUE CALDERON M.D. Performed By: #### U TAYLOR MINAYA UEOS #### [facility] [address] HbA1c (Bld) [Mass fraction]o n 02-19-2024 Interpretation and review of laboratory results Normal [facility] Cell countson 02-19-2024 HbA1c (Bld) [Mass fraction] 5.1 % [facility] ALL CBC WITH AUTO DIFFon BASOPHILS ABSOLUTE AUTO 0.1 [facility] Basophils/100 WBC (Bld) 0.6 % 0.2 - 2.0 % [facility] Eosinophils/100 WBC (Bld) 1.4 % 0.9 - 7.0 % [facility] Erythrocyte distribution width (RBC) [Ratio] 14.1 % 11.0 - 15.0 % [facility] Hematocrit (Bld) [Volume fraction] 40.0 % 36.0 - 48.0 % [facility] Hemoglobin (Bld) [Mass/Vol] 12.4 g/dL 12.0 - 16.0 g/dL [facility] IMMATURE GRANULOCYTES ABS AUTO 0.03 [facility] Immature granulocytes/100 WBC (Bld) 0.4 % 0.0 - 0.5 % [facility] LYMPHOCYTES ABSOLUTE AUTO 1.9 [facility] Lymphocytes/100 WBC (Bld) 24.7 % 20.5 - 60.0 % [facility] MCH (RBC) [Entitic mass] 28.4 pg 26.7 - 34.0 pg [facility] MCHC (RBC) [Mass/Vol] 31.0 g/dL 29.9 - 35.2 g/dL [facility] MCV (RBC) [Entitic vol] 91.5 fL 81.0 - 99.0 fL [facility] MONOCYTES ABSOLUTE AUTO 0.4 [facility] Monocytes/100 WBC (Bld) 4.6 % 1.7 - 12.0 % [facility] NEUTROPHILS ABSOLUTE AUTO 5.3 [facility] Neutrophils/100 WBC (Bld) 68.3 % 43.0 - 75.0 % [facility] Platelet mean volume (Bld) [Entitic vol] 11.1 fL 9.5 - 13.5 fL [facility] TBH EO # 0.1 [facility] Healthcare TB PLT 261 [facility] Healthcare TB RBC 4.37 [facility] Healthcare TB WBC 7.8 [facility] Healthcare [facility] Healthcare Office Visiton 12-18-2023 Follow-up visit [id number] Nithin Humphreys 1970 F Date Provider Department Center 12/18/2023 271-PETROSTACHEN, EHAB BH CARD [facility] No family history on file Level of Service:55675 [place] OFFICE/OUTPATIENT ESTABLISHED LOW MDM 20 MIN Normal [facility] Capillary blood glucose timmy urement by glucometer (mass/volume)Ordered By: Ban Clemente on 11-01-2023 Glucose [Mass/Vol] 107 mg/dL Normal [facility] Comment on above: Random Glucose Refer ence Range is dependent on time and content of last meal. Glucose of more than 200 mg/dL in a nonstressed, ambulatory subject supports the diagnosis of Diabetes Mellitus. Result Comment: [facility] Glucose Reference Range is dependent on time and content of last meal. Glucose of more than 200 mg/dL in a nonstressed, ambulatory subject supports the diagnosis of Diabetes Mellitus. PERFORMED BY: [place] [id number] PATHOLOGIST DIGITAL COMMENTATOR ARIC BUTLER M.D. Performed By: #### TAYLOR CONLEY UEOS #### [facility] [address] [place] [address] [facility] Glucose Poct Glucometerson 0 11-01-2023 Commemt1 Glu2: Cleaned Meter Normal [facility] Comment on above: Result Comment: PERF ORMED BY: [facility] [address] [place] [address] PATHOLOGIST DIGITAL COMMENTATOR ARIC BUTLER M.D. Performed By: #### TAYLOR CONLEY UEOS #### [facility] [address] [place] [address] [place] Glucose [Mass/Vol] 70 mg/dL Normal [facility] Comment on above: Result Comment: [place] Glucose Reference Range is dependent on time and content of last meal. Glucose of more than 200 mg/dL in a nonstressed, ambulatory subject supports the diagnosis of Diabetes Mellitus. Performed By: #### U TAYLOR MINAYA UEOS #### [facility] [address] [place] 11-01-2023 L Specimen: [id number] Received: 11/01/23 Status: MEENAKSHI Iversonjarred Num: [id number] Spec Type: Surgical Subm Dr: Ban Clemente MD Tissues: A Colon Biopsy (CECAL POLYP) Procedures: HE/2, Gross/Micro L4 Age/ Patient Sex Location Account Attending Physician Sherly Humphreys 52/F [place] [id number] Ban Clemente MD SPEC NUM: [id number] RECD: 11/01/23 STATUS: MEENAKSHI HINOJOSA NUM: [id number] RORY: 11/01/23 DR: Ban Clemente MD ENTERED: 11/01/23 [facility] DR: SPEC TYPE: Surgical DEPT: S ORDERED: HE/2, Gross/Micro L4 ORDERED: HE/2, Gross/Micro L4 Pathological Diagnosis Colon, cecal polyp (endoscopic polypectomy/biopsy): Tubular adenoma Clinical Information History of polyp Gross Description Received in formalin labeled with the patient's name, date of and cecal polyp is a 0.3 x 0.3 x 0.2 cm adame polypoid tissue fragment, entirely submitted in A1. CPT Codes 55388 Specimen: [id number] Received: 11/01/23-1256 Status: MEENAKSHI Hinojosa Num: [id number] Spec Type: Surgical Subm Dr: Ban Clemente MD Tissues: A Colon Biopsy (CECAL POLYP) Procedures: HE/2, Gross/Micro L4 Patient: Sherly Humphreys [id number] (Continued) Signed (signature on file) Herminio Ragsdale Jr., MD 11/05/231907 Normal [facility] No Panel InformationOrdered By: Ban Clemente on 11-01-2023 Bedside Glucose Comment Glu2: cleaned meter [facility] Basic Metabolic Panelon 09-15 GFR/1.73 sq M.predicted MDRD (S/P/Bld) [Vol rate/Area] 28.812 mL/min/{1.73_m2} Normal [facility] Comment on above: Performed By: #### A DDONUAPLUS #### [address] Calcium [Mass/volume] in Ser um or PlasmaOrdered By: Fernando Rosenberg on 10-11-2023 Calcium [Mass/Vol] 9.7 mg/dL Normal 8.6-10.3 [facility] Comment on above: Result Comment: PERF ORMED BY: [place] [id number] PATHOLOGIST DIGITAL COMMENTATOR ARIC BUTLER M.D. Performed By: #### A DDONUAPLUS #### [facility] [address] [place] [address] [place] Carbon dioxide, total [Moles /volume] in Serum or PlasmaOrdered By: Fernando Rosenberg on 10-11-2023 CO2 [Moles/Vol] 26.7 mmol/L Normal 21.0-31.0 [facility] Comment on above: Performed By: #### A DDONUAPLUS #### [facility] [address] [place] [address] [place] Chloride [Moles/volume] in S brunilda or PlasmaOrdered By: Fernando Aguilarkpswathi on 10-11-2023 Chloride [Moles/Vol] 107 mmol/L Normal 98-107 [facility] Comment on above: Performed By: #### A DDONUAPLUS #### [facility] [address] [place] [address] [place] Creatinine [Mass/volume] in Serum or PlasmaOrdered By: Fernando Rosenberg on 10-11-2023 Creatinine [Mass/Vol] 2.04 mg/dL High 0.60-1.20 [facility] Comment on above: Performed By: #### A DDONUAPLUS #### [facility] [address] [place] [address] [place] Glucose [Mass/volume] in Ser um or PlasmaOrdered By: Fernando Rosenberg on 10-11-2023 Glucose [Mass/Vol] 96 mg/dL Normal 70-100 [facility] Comment on above: ADA recommended refe rence rangeRandom Glucose Reference Range is dependent on time and content of last meal. Glucose of more than 200 mg/dL in a nonstressed, ambulatory subject supports the diagnosis of Diabetes Mellitus. Result Comment: [place] Glucose Reference Range is dependent on time and content of last meal. Glucose of more than 200 mg/dL in a nonstressed, ambulatory subject supports the diagnosis of Diabetes Mellitus. ADA recommended reference range Performed By: #### A DDONUAPLUS #### [facility] [address] [place] [address] No Panel InformationOrdered By: Fernando Rosenberg on 10-11-2023 Estimated GFR (CKD-EPI) 28.812 mL/Min [facility] Creatinine Clearance (Chem N/A [facility] Potassium [Moles/volume] in Serum or PlasmaOrdered By: Fernando Rosenberg on 10-11-2023 Potassium [Moles/Vol] 5.2 mmol/L High 3.5-5.1 [facility] Comment on above: Performed By: #### A DDONUAPLUS #### [address] Serum or plasma anion gap de terminationOrdered By: Fernando Rosenberg on 10-11-2023 Anion gap [Moles/Vol] 11.5 mmol/L Normal 6.0-15.0 [facility] Comment on above: Performed By: #### A DDONUAPLUS #### [facility] [address] [place] [address] Sodium [Moles/volume] in Ser um or PlasmaOrdered By: Fernando Rosenberg on 10-11-2023 Sodium [Moles/Vol] 140 mmol/L Normal 136-145 [facility] Comment on above: Performed By: #### A DDONUAPLUS #### [address] Urea nitrogen [Mass/volume] in Serum or PlasmaOrdered By: Fernando Rosenberg on 10-11-2023 Urea nitrogen [Mass/Vol] 41 mg/dL High 7-25 [facility] Comment on above: Performed By: #### A DDONUAPLUS #### [address] 36on 10-02-2023 36 Patient made aware. I told her to make sure to call Dr. Siddiqui's office of neurology. Normal [facility] Automated basophil %Ordered By: Fernando Rosenberg on 10-02-2023 Basophils/100 WBC (Bld) 0.8 % Normal . [facility] Comment on above: Performed By: #### TAYLOR CONLEY UEOS #### [address] Automated basophil countOrde red By: Fernando Petersenor on 10-02-2023 Basophils (Bld) [#/Vol] 0.0 10*3/uL Normal 0.0-0.2 [facility] Comment on above: Result Comment: PERF ORMED BY: [place] [id number] PATHOLOGIST DIGITAL COMMENTATOR ARIC BUTLER M.D. Performed By: #### TAYLOR CONLEY UEOS #### [address] Automated blood monocyte cou ntOrdered By: Fernando Rosenberg on 10-02-2023 Monocytes (Bld) [#/Vol] 0.3 10*3/uL Normal 0.0-0.8 [facility] Comment on above: Performed By: #### TAYLOR CONLEY UEOS #### [address] Automated eosinophil %Ordere d By: Fernando Petersenor on 10-02-2023 Eosinophils/100 WBC (Bld) 3.4 % Normal . [facility] Comment on above: Performed By: #### U TAYLOR MINAYA UEOS #### [address] Automated eosinophil countOr dered By: Fernando Rosenberg on 10-02-2023 Eosinophils (Bld) [#/Vol] 0.2 10*3/uL Normal 0.0-0.45 [facility] Comment on above: Performed By: #### U CREJOSHUA PatelNA UEOS #### [address] Automated monocyte %Ordered By: Fernando Rosenberg on 10-02-2023 Monocytes/100 WBC (Bld) 6.4 % Normal . [facility] Comment on above: Performed By: #### U TAYLOR MINAYA UEOS #### [address] Automated neutrophil %Ordere d By: Fernando Rosenberg on 10-02-2023 Neutrophils/100 WBC (Bld) 46.2 % Normal . [facility] Comment on above: Performed By: #### TAYLOR CONLEY UEOS #### [address] Basic Metabolic Panelon 09-14 Creatinine Clr Calc Pharmacy 60.65 Normal [facility] Comment on above: Result Comment: PERF ORMED BY: [place] [id number] PATHOLOGIST DIGITAL COMMENTATOR ARIC BUTLER M.D. Performed By: #### TAYLOR CONLEY UEOS #### [address] GFR/1.73 sq M.predicted MDRD (S/P/Bld) [Vol rate/Area] 41.013 mL/min/{1.73_m2} Normal [facility] Comment on above: Performed By: #### TAYLOR CONLEY UEOS #### [address] Calcium [Mass/volume] in Ser um or PlasmaOrdered By: Fernando Rosenberg on 10-02-2023 Calcium [Mass/Vol] 9.0 mg/dL Normal 8.6-10.3 [facility] Comment on above: Performed By: #### U TAYLOR MINAYA UEOS #### [address] Capillary blood glucose timmy urement by glucometer (mass/volume)Ordered By: Fernando Rosenberg on 10-02-2023 Glucose [Mass/Vol] 93 mg/dL Normal [facility] Comment on above: Random Glucose Refer ence Range is dependent on time and content of last meal. Glucose of more than 200 mg/dL in a nonstressed, ambulatory subject supports the diagnosis of Diabetes Mellitus. Result Comment: [place] Glucose Reference Range is dependent on time and content of last meal. Glucose of more than 200 mg/dL in a nonstressed, ambulatory subject supports the diagnosis of Diabetes Mellitus. PERFORMED BY: [place] [id number] PATHOLOGIST DIGITAL COMMENTATOR ARIC BUTLER M.D. Performed By: #### A DDONUAPLUS #### [address] Carbon dioxide, total [Moles /volume] in Serum or PlasmaOrdered By: Fernando Rosenberg on 10-02-2023 CO2 [Moles/Vol] 26.9 mmol/L Normal 21.0-31.0 [facility] Comment on above: Performed By: #### U CREA, URNA, UEOS #### [address] Chloride [Moles/volume] in S brunilda or PlasmaOrdered By: Fernando Rosenberg on 10-02-2023 Chloride [Moles/Vol] 110 mmol/L High 98-107 [facility] Comment on above: Performed By: #### U CREA, URNA, UEOS #### [address] Complete Blood Count Auto Di ffon 10-02-2023 Mean Corpuscular HGB Conc 33.2 g/dL Normal 32.0-35.0 [facility] Comment on above: Performed By: #### U CREA, URNA, UEOS #### [place] [address] [place] NRBC% 0.0 /100{WBC} Normal 0-0.5 [facility] Comment on above: Performed By: #### U CREA, URNA, UEOS #### [place] [address] [place] Creatinine [Mass/volume] in Serum or PlasmaOrdered By: Fernando Rosenberg on 10-02-2023 Creatinine [Mass/Vol] 1.52 mg/dL Significan t change up 0.60-1.20 [facility] Comment on above: Delta: 2.27 on 09/30-0758 Performed By: #### TAYLOR CONLEY UEOS #### [facility] [address] Erythrocyte distribution wid th [Ratio] by Automated countOrdered By: Fernando Rosenberg on 10-02-2023 Erythrocyte distribution width (RBC) [Ratio] 14.3 % Normal 11.9-15.3 [facility] Comment on above: Performed By: #### TAYLOR CONLEY UEOS #### [address] Erythrocytes [#/volume] in B lood by Automated countOrdered By: Fernando Rosenberg on 10-02-2023 RBC (Bld) [#/Vol] 3.47 10*6/uL Low 3.60-5.00 [facility] Comment on above: Performed By: #### TAYLOR CONLEY UEJD #### [facility] [address] [place] [address] Glucose Poct Glucometerson 0 10-02-2023 Glucose [Mass/Vol] 87 mg/dL Normal [facility] Comment on above: Result Comment: [facility] Glucose Reference Range is dependent on time and content of last meal. Glucose of more than 200 mg/dL in a nonstressed, ambulatory subject supports the diagnosis of Diabetes Mellitus. PERFORMED BY: [place] [id number] PATHOLOGIST DIGITAL COMMENTATOR ARIC BUTLER M.D. Performed By: #### TAYLOR CONLEY UEJD #### [facility] [address] [place] [address] [place] Glucose [Mass/volume] in Ser um or PlasmaOrdered By: Fernando Rosenberg on 10-02-2023 Glucose [Mass/Vol] 85 mg/dL Normal 70-100 [facility] Comment on above: ADA recommended refe rence rangeRandom Glucose Reference Range is dependent on time and content of last meal. Glucose of more than 200 mg/dL in a nonstressed, ambulatory subject supports the diagnosis of Diabetes Mellitus. Result Comment: [place] Glucose Reference Range is dependent on time and content of last meal. Glucose of more than 200 mg/dL in a nonstressed, ambulatory subject supports the diagnosis of Diabetes Mellitus. ADA recommended reference range Performed By: #### TAYLOR CONLEY UEOS #### [address] Hematocrit [Volume Fraction] of Blood by Automated countOrdered By: Fernando Rosenberg on 10-02-2023 Hematocrit (Bld) [Volume fraction] 31.5 % Low 34.0-46.4 [facility] Comment on above: Performed By: #### TAYLOR CONLEY UEOS #### [facility] [address] [place] [address] Hemoglobin [Mass/volume] in BloodOrdered By: Fernando Rosenberg on 10-02-2023 Hemoglobin (Bld) [Mass/Vol] 10.4 g/dL Low 11.8-15.4 [facility] Comment on above: Performed By: #### TAYLOR CONLEY UEOS #### [address] Leukocytes [#/volume] correc joaquin for nucleated erythrocytes in Blood by Automated counOrdered By: Fernando Rosenberg on 10-02-2023 WBC corrected for nucl RBC Auto (Bld) [#/Vol] 4.8 10*3/uL 3.8-11.6 [facility] Leukocytes [#/volume] in Blo od by Automated countOrdered By: Fernando Rosenberg on 10-02-2023 WBC (Bld) [#/Vol] 4.8 10*3/uL Normal 3.8-11.6 [facility] Comment on above: Performed By: #### TAYLOR CONLEY UEOS #### [address] [address] [place] Lymphocytes [#/volume] in Bl ood by Automated countOrdered By: Fernando Rosenberg on 10-02-2023 Lymphocytes (Bld) [#/Vol] 2.1 10*3/uL Normal 1.00-4.8 [facility] Comment on above: Performed By: #### TAYLOR CONLEY UEOS #### [facility] [address] [place] [address] Lymphocytes/100 leukocytes i n Blood by Automated countOrdered By: Fernando Rosenberg on 10-02-2023 Lymphocytes/100 WBC (Bld) 43.2 % Normal . [facility] Comment on above: Performed By: #### TAYLOR CONLEY UEOS #### [facility] [address] [place] [address] MCH [Entitic mass] by Automa joaquin countOrdered By: Fernando Rosenberg on 10-02-2023 MCH (RBC) [Entitic mass] 30.1 pg Normal 24.7-34.3 [facility] Comment on above: Performed By: #### TAYLOR CONLEY UEOS #### [facility] [address] [place] [address] MCHC Auto (RBC) [Mass/Vol]Or dered By: Fernando Rosenberg on 10-02-2023 MCHC (RBC) [Mass/Vol] 33.2 g/dL 32.0-35.0 [facility] MCV [Entitic volume] by Auto mated countOrdered By: Fernando Rosenberg on 10-02-2023 MCV (RBC) [Entitic vol] 90.7 fL Normal 80-100 [facility] Comment on above: Performed By: #### TAYLOR CONLEY UEOS #### [facility] [address] [place] [address] Neutrophils [#/volume] in Bl ood by Automated countOrdered By: Fernando Rosenberg on 10-02-2023 Neutrophils (Bld) [#/Vol] 2.2 10*3/uL Normal 1.8-7.7 [facility] Comment on above: Performed By: #### TAYLOR CONLEY UEOS #### [facility] [address] No Panel InformationOrdered By: Fernando Rosenberg on 10-02-2023 Estimated GFR (CKD-EPI) 41.013 mL/Min [facility] Creatinine Clearance (Chem 60.65 [facility] Nucleated erythrocytes [Pres ence] in Blood by Automated countOrdered By: Fernando Rosenberg on 10-02-2023 Nucleated RBC Auto Ql (Bld) 0.0 /100{WBC} 0-0.5 [facility] Platelet mean volume [Entiti c volume] in Blood by Automated countOrdered By: Fernando Rosenberg on 10-02-2023 Platelet mean volume (Bld) [Entitic vol] 9.2 fL Normal 6.3-10.7 [facility] Comment on above: Performed By: #### TAYLOR CONLEY UEOS #### [facility] [address] [place] [address] Platelets [#/volume] in Bloo d by Automated countOrdered By: Fernando Rosenberg on 10-02-2023 Platelets (Bld) [#/Vol] 230 10*3/uL Normal 150-450 [facility] Comment on above: Performed By: #### TAYLOR CONLEY UEOS #### [facility] [address] [place] [address] Potassium [Moles/volume] in Serum or PlasmaOrdered By: Fernando Rosenberg on 10-02-2023 Potassium [Moles/Vol] 4.5 mmol/L Normal 3.5-5.1 [facility] Comment on above: Performed By: #### TAYLOR CONLEY UEOS #### [facility] [address] [place] [address] Serum or plasma anion gap de terminationOrdered By: Fernando Rosenberg on 10-02-2023 Anion gap [Moles/Vol] 9.6 mmol/L Normal 6.0-15.0 [facility] Comment on above: Performed By: #### U CREA, URGREGG, UEOS #### [facility] [address] [place] [address] [place] Sodium [Moles/volume] in Ser um or PlasmaOrdered By: Fernando [place] on 10-02-2023 Sodium [Moles/Vol] 142 mmol/L Normal 136-145 [facility] Comment on above: Performed By: #### U CREA, URNA, UEOS #### [facility] [address] Urea nitrogen [Mass/volume] in Serum or PlasmaOrdered By: Fernando Rosenberg on 10-02-2023 Urea nitrogen [Mass/Vol] 34 mg/dL High 11-07 [facility] Comment on above: Performed By: #### U CREA, URNA, UEOS #### [facility] [address] [place] [address] [place] Activated partial thrombopla stin time (aPTT) in platelet poor plasma by coagulation aOrdered By: Alma Deng on 10-01-2023 aPTT Coag (PPP) [Time] 30.1 s 25.1-36.5 [facility] Comment on above: A hematocrit value g reater than 55% may lead to inaccurate results in coagulation testing. Patients having hematocrit values >55% require a special collection tube for coagulation studies. Please contact the laboratory at [phone] for redraw instructions. Alanine aminotransferase [En zymatic activity/volume] in Serum or PlasmaOrdered By: Alma Deng on 10-01-2023 ALT [Catalytic activity/Vol] 19 U/L Normal [facility] Comment on above: Order Comment: SPECI MEN GROSSLY HEMOLYZED. NOTIFIED IRIS Performed By: #### U CREA, URNA, UEOS #### [facility] [address] [place] [id number] [place] Albumin [Mass/volume] in Ser um or Plasma by Bromocresol green (BCG) dye binding methoOrdered By: Alma Deng on 10-01-2023 Albumin BCG dye [Mass/Vol] 3.9 g/dL 3.5-5.7 [facility] Alkaline phosphatase [Enzyma tic activity/volume] in Serum or PlasmaOrdered By: Alma Huyuche on 10-01-2023 ALP [Catalytic activity/Vol] 56 U/L Normal 34-104 [facility] Comment on above: Order Comment: SPECI MEN GROSSLY HEMOLYZED. NOTIFIED IRIS Performed By: #### U TAYLOR MINAYA UEOS #### [facility] [address] [place] [address] [place] Aspartate aminotransferase [ Enzymatic activity/volume] in Serum or PlasmaOrdered By: Alma uHyuche on 10-01-2023 AST [Catalytic activity/Vol] 29 U/L Normal 13-39 [facility] Comment on above: Order Comment: SPECI MEN GROSSLY HEMOLYZED. NOTIFIED IRIS Performed By: #### U CRETAYLOR Patel UEOS #### [facility] [address] [place] [address] [place] Bacteria [Presence] in Urine by AutomatedOrdered By: Alma Huyuche on 10-01-2023 Bacteria Auto Ql (U) None seen [HPF] None Seen [facility] Bilirubin Test strip Ql (U)O rdered By: Alma Huyuche on 10-01-2023 Bilirubin Ql (U) Negative Negative [facility] Bilirubin.total [Mass/volume ] in Serum or PlasmaOrdered By: Alma Deng on 10-01-2023 Bilirubin [Mass/Vol] 0.3 mg/dL Normal 0.3-1.0 [facility] Comment on above: Order Comment: SPECI MEN GROSSLY HEMOLYZED. NOTIFIED IRIS Performed By: #### U CRETAYLOR Patel UEOS #### [facility] [address] [place] [address] [place] Color of Urine by AutoOrdere d By: Alma Deng on 10-01-2023 Color (U) Colorless Normal Yellow [facility] Comment on above: Order Comment: Name Collection Type:: Other Performed By: #### A DDONUAPLUS #### [facility] [address] Comprehensive Metabolic Pane pillo 10-01-2023 Albumin [Mass/Vol] 3.9 g/dL Normal 3.5-5.7 [facility] Comment on above: Order Comment: SPECI MEN GROSSLY HEMOLYZED. NOTIFIED IRIS Performed By: #### U CREA, URNA, UEOS #### [address] Anion gap [Moles/Vol] 10.8 mmol/L Normal 6.0-15.0 [facility] Comment on above: Order Comment: SPECI MEN GROSSLY HEMOLYZED. NOTIFIED IRIS Performed By: #### U CREA, URNA, UEOS #### [address] Calcium [Mass/Vol] 8.8 mg/dL Normal 8.6-10.3 [facility] Comment on above: Order Comment: SPECI MEN GROSSLY HEMOLYZED. NOTIFIED IRIS Performed By: #### U CREA, URNA, UEOS #### [address] Chloride [Moles/Vol] 110 mmol/L High 98-107 [facility] Comment on above: Order Comment: SPECI MEN GROSSLY HEMOLYZED. NOTIFIED IRIS Performed By: #### U CREA, URNA, UEOS #### [address] CO2 [Moles/Vol] 24.1 mmol/L Normal 21.0-31.0 [facility] Comment on above: Order Comment: SPECI MEN GROSSLY HEMOLYZED. NOTIFIED IRIS Performed By: #### U CREA, URNA, UEOS #### [address] Creatinine [Mass/Vol] 2.27 mg/dL High 0.60-1.20 [facility] Comment on above: Order Comment: SPECI MEN GROSSLY HEMOLYZED. NOTIFIED IRIS Performed By: #### U CREA, URNA, UEOS #### [address] Creatinine Clr Calc Pharmacy 40.81 Normal [facility] Comment on above: Order Comment: SPECI MEN GROSSLY HEMOLYZED. NOTIFIED IRIS Result Comment: PERF ORMED BY: [place] [id number] PATHOLOGIST DIGITAL COMMENTATOR ARIC BUTLER M.D. Performed By: #### U CREA URNA UEOS #### [place] [address] [place] GFR/1.73 sq M.predicted MDRD (S/P/Bld) [Vol rate/Area] 25.346 mL/min/{1.73_m2} Normal [facility] Comment on above: Order Comment: SPECI MEN GROSSLY HEMOLYZED. NOTIFIED IRIS Performed By: #### U CREA URNA UEOS #### [address] Glucose [Mass/Vol] 120 mg/dL High 70-100 [facility] Comment on above: Order Comment: SPECI MEN GROSSLY HEMOLYZED. NOTIFIED IRIS Result Comment: [facility] Glucose Reference Range is dependent on time and content of last meal. Glucose of more than 200 mg/dL in a nonstressed, ambulatory subject supports the diagnosis of Diabetes Mellitus. ADA recommended reference range Performed By: #### U CREA URNA, UEOS #### [address] Potassium [Moles/Vol] 3.9 mmol/L Normal 3.5-5.1 [facility] Comment on above: Order Comment: SPECI MEN GROSSLY HEMOLYZED. NOTIFIED IRIS Performed By: #### U CREA URNA, UEOS #### [place] [address] [place] Sodium [Moles/Vol] 141 mmol/L Normal 136-145 [facility] Comment on above: Order Comment: SPECI MEN GROSSLY HEMOLYZED. NOTIFIED IRIS Performed By: #### U CREA, URNA, UEOS #### [facility] [address] Urea nitrogen [Mass/Vol] 43 mg/dL High 7-25 [facility] Comment on above: Order Comment: SPECI MEN GROSSLY HEMOLYZED. NOTIFIED IRIS Performed By: #### U TAYLOR MINAYA, UEOS #### [address] Creatinine [Mass/volume] in UrineOrdered By: Alma Deng on 10-01-2023 Creatinine (U) [Mass/Vol] 65.00 mg/dL [facility] Comment on above: No reference range e stablished Creatinine, Urine (Random)on 10-01-2023 Creatinine, Urine (Random) 65.00 mg/dL Normal [facility] Comment on above: Result Comment: No r eference range established PERFORMED BY: [place] [id number] PATHOLOGIST DIGITAL COMMENTATOR ARIC BUTLER M.D. Performed By: #### U REI JOSHUAGREGG, UEOS #### [address] Dipstick and Microscopicon 0 10-01-2023 Bacteria,Urine None Seen Normal None Seen [facility] Comment on above: Order Comment: Name Collection Type:: Other Performed By: #### A DDONUAPLUS #### [address] Bilirubin,Urine Negative Normal Negative [facility] Comment on above: Order Comment: Name Collection Type:: Other Performed By: #### A DDONUAPLUS #### [place] [address] [place] Glucose Ql (U) Normal Normal Normal [facility] Comment on above: Order Comment: Name Collection Type:: Other Performed By: #### A DDONUAPLUS #### [place] [address] [place] Hyaline Casts,Urine 0-8 Normal 0-8 [facility] Comment on above: Order Comment: Name Collection Type:: Other Performed By: #### A DDONUAPLUS #### [place] [address] [place] Mucus,Urine Rare Normal [facility] Comment on above: Order Comment: Name Collection Type:: Other Result Comment: PERF ORMED BY: [place] [id number] PATHOLOGIST DIGITAL COMMENTATOR ARIC BUTLER M.D. Performed By: #### A DDONUAPLUS #### [address] Nitrite,Urine Negative Normal Negative [facility] Comment on above: Order Comment: Name Collection Type:: Other Performed By: #### A DDONUAPLUS #### [address] Occult Blood,Urine Negative Normal Negative [facility] Comment on above: Order Comment: Name Collection Type:: Other Result Comment: PERF ORMED BY: [place] [id number] PATHOLOGIST DIGITAL COMMENTATOR ARIC BUTLER M.D. Performed By: #### A DDONUAPLUS #### [place] [address] [place] Protein,Urine Negative Normal Negative [facility] Comment on above: Order Comment: Name Collection Type:: Other Performed By: #### A DDONUAPLUS #### [address] RBC,Urine None Seen Normal 0-4 [facility] Comment on above: Order Comment: Name Collection Type:: Other Performed By: #### A DDONUAPLUS #### [place] [address] [place] Specificy Charmco,Urine 1.009 Normal 1.001-1.030 [facility] Comment on above: Order Comment: Name Collection Type:: Other Performed By: #### A DDONUAPLUS #### [address] Urobilinogen,Urine Normal Normal Normal [facility] Comment on above: Order Comment: Name Collection Type:: Other Performed By: #### A DDONUAPLUS #### [facility] [address] WBC,Urine 3-4 Normal 0-4 [facility] Comment on above: Order Comment: Name Collection Type:: Other Performed By: #### A DDONUAPLUS #### [facility] [address] [place] [address] [place] Eosinophil,Urineon 4 Eosinophil,Urine 0 % Normal 0-1 [facility] Comment on above: Result Comment: PERF ORMED BY: [place] [id number] PATHOLOGIST DIGITAL COMMENTATOR ARIC BUTLER M.D. Performed By: #### U CREAJOSHUANA, UEOS #### [address] Eosinophils detection in uri ne sediment by Nava stainOrdered By: Alma Deng on 10-01-2023 Eosinophils Nava stain Ql (Urine sed) 0 % 0-1 [facility] Epithelial cells.squamous [# /area] in Urine sediment by Automated countOrdered By: Alma Deng on 10-01-2023 Epithelial cells.squamous Auto (Urine sed) [#/Area] N/A [facility] Erythrocytes [#/area] in Uri ne sediment by Automated countOrdered By: Alma Deng on 10-01-2023 RBC Auto (Urine sed) [#/Area] None seen [HPF] 0-4 [facility] Glucose Poct Glucometerson 0 10-01-2023 Commemt1 Glu2: Cleaned Meter Normal [facility] Comment on above: Result Comment: PERF ORMED BY: [place] [id number] PATHOLOGIST DIGITAL COMMENTATOR ARIC BUTLER M.D. Performed By: #### U CREA, URNA, UEOS #### [address] Glucose [Mass/Vol] 81 mg/dL Normal [facility] Comment on above: Result Comment: [place] Glucose Reference Range is dependent on time and content of last meal. Glucose of more than 200 mg/dL in a nonstressed, ambulatory subject supports the diagnosis of Diabetes Mellitus. Performed By: #### TAYLOR CONLEY UEOS #### [facility] [address] [place] [id number] [facility] Glucose [Mass/Vol] 83 mg/dL Normal [facility] Comment on above: Result Comment: [place] Glucose Reference Range is dependent on time and content of last meal. Glucose of more than 200 mg/dL in a nonstressed, ambulatory subject supports the diagnosis of Diabetes Mellitus. PERFORMED BY: [place] [id number] PATHOLOGIST DIGITAL COMMENTATOR ARIC BUTLER M.D. Performed By: #### G LULS #### Point of Care testing , Glucose [Mass/Vol] 117 mg/dL Normal [facility] Comment on above: Result Comment: [place] Glucose Reference Range is dependent on time and content of last meal. Glucose of more than 200 mg/dL in a nonstressed, ambulatory subject supports the diagnosis of Diabetes Mellitus. PERFORMED BY: [place] [id number] PATHOLOGIST DIGITAL COMMENTATOR ARIC BUTLER M.D. Performed By: #### TAYLOR CONLEY UEOS #### [address] Glucose [Mass/Vol] 83 mg/dL Normal [facility] Comment on above: Result Comment: [place] Glucose Reference Range is dependent on time and content of last meal. Glucose of more than 200 mg/dL in a nonstressed, ambulatory subject supports the diagnosis of Diabetes Mellitus. PERFORMED BY: [place] [id number] PATHOLOGIST DIGITAL COMMENTATOR ARIC BUTLER M.D. Performed By: #### G LULS #### Point of Care testing , Glucose [Mass/volume] in Uri ne by Test stripOrdered By: Alma Deng on 10-01-2023 Glucose Test strip (U) [Mass/Vol] Normal mg/dL Normal [facility] Hemoglobin Test strip Ql (U) Ordered By: Alma Huyuche on 10-01-2023 Hemoglobin Ql (U) Negative Negative [facility] Hemogram CBC Without Diffon 10-01-2023 Erythrocyte distribution width (RBC) [Ratio] 14.7 % Normal 11.9-15.3 [facility] Comment on above: Performed By: #### U CREAJOSHUANA UEOS #### [address] Hematocrit (Bld) [Volume fraction] 32.9 % Low 34.0-46.4 [facility] Comment on above: Performed By: #### U CREAJOSHUANA UEOS #### [address] Hemoglobin (Bld) [Mass/Vol] 11.0 g/dL Low 11.8-15.4 [facility] Comment on above: Performed By: #### U CREA URNA UEOS #### [address] MCH (RBC) [Entitic mass] 30.1 pg Normal 24.7-34.3 [facility] Comment on above: Performed By: #### U CREAJOSHUANA UEOS #### [address] MCV (RBC) [Entitic vol] 89.6 fL Normal 80-100 [facility] Comment on above: Performed By: #### U CREA URNA UEOS #### [address] Mean Corpuscular HGB Conc 33.6 g/dL Normal 32.0-35.0 [facility] Comment on above: Performed By: #### U CREAJOSHUANA UEOS #### [address] Platelet mean volume (Bld) [Entitic vol] 10.5 fL Normal 6.3-10.7 [facility] Comment on above: Result Comment: PERF ORMED BY: [place] [id number] PATHOLOGIST DIGITAL COMMENTATOR ARIC BUTLER M.D. Performed By: #### U CREA, URNA, UEOS #### [address] Platelets (Bld) [#/Vol] 320 10*3/uL Normal 150-450 [facility] Comment on above: Performed By: #### U CREA, URNA, UEOS #### [address] RBC (Bld) [#/Vol] 3.67 10*6/uL Normal 3.60-5.00 [facility] Comment on above: Performed By: #### U CREA, URNA, UEOS #### [address] WBC (Bld) [#/Vol] 5.0 10*3/uL Normal 3.8-11.6 [facility] Comment on above: Performed By: #### U CREA, URNA, UEOS #### [address] Hyaline casts [#/area] in Ur ine sediment by Automated countOrdered By: Alma Deng on 10-01-2023 Hyaline casts Auto (Urine sed) [#/Area] 0-8 [LPF] 0-8 [facility] INR in Platelet poor plasma by Coagulation assayOrdered By: Alma Deng on 10-01-2023 INR Coag (PPP) [Relative time] 1.1 {INR} Normal [facility] Comment on above: INR Therapeutic Rang e [...] heart valves: 3 - 4.5 Order Comment: REDRA W Result Comment: INR Therapeutic Range A) Pre- [...] valves: 3 - 4.5 Performed By: #### G LULS #### Point of Care testing , Ketones [Presence] in Urine by Test stripOrdered By: Alma Deng on 10-01-2023 Ketones Ql (U) Negative Normal Negative [facility] Comment on above: Order Comment: Name Collection Type:: Other Performed By: #### A DDONUAPLUS #### [facility] [address] [place] [address] [place] Leukocyte esterase [Presence ] in Urine by Test stripOrdered By: Alma Deng on 10-01-2023 Leukocyte esterase Test strip Ql (U) 1+ High Negative [facility] Comment on above: Order Comment: Name Collection Type:: Other Performed By: #### A DDONUAPLUS #### [facility] [address] [place] [address] [place] Leukocytes [#/area] in Urine sediment by Automated countOrdered By: Alma Deng on 10-01-2023 WBC Auto (Urine sed) [#/Area] 3-4 [HPF] 0-4 [facility] Mucus [Presence] in Urine by AutomatedOrdered By: Alma Deng on 10-01-2023 Mucus Auto Ql (U) Rare [LPF] [facility] Nitrite Test strip Ql (U)Ord ered By: Alma Deng on 10-01-2023 Nitrite Ql (U) Negative Negative [facility] No Panel InformationOrdered By: Fernando Rosenberg on 10-01-2023 Bedside Glucose Comment Glu2: cleaned meter [facility] Partial Thromboplastin Timeo n 10-01-2023 aPTT Coag (Bld) [Time] 30.1 s Normal 25.1-36.5 [facility] Comment on above: Order Comment: REDRA W Result Comment: A he matocrit value greater than 55% may lead to inaccurate results in coagulation testing. Patients having hematocrit values >55% require a special collection tube for coagulation studies. Please contact the laboratory at [phone] for redraw instructions. PERFORMED BY: [facility] [address] [place] [id number] PATHOLOGIST DIGITAL COMMENTATOR ARIC BUTLER M.D. Performed By: #### G LULS #### Point of Care testing , Protein Test strip (U) [Mass /Vol]Ordered By: Alma Deng on 10-01-2023 Protein (U) [Mass/Vol] Negative Negative [facility] Protein [Mass/volume] in Ser um or PlasmaOrdered By: Alma Deng on 10-01-2023 Protein [Mass/Vol] 6.1 g/dL Low 6.4-8.9 [facility] Comment on above: Order Comment: SPECI MEN GROSSLY HEMOLYZED. NOTIFIED IRIS Performed By: #### U TAYLOR MINAYA UEOS #### [place] [id number] [facility] Prothrombin time (PT)Ordered By: Alma Deng on 10-01-2023 PT Coag (PPP) [Time] 12.2 s Normal 9.0-12.9 [facility] Comment on above: A hematocrit value g reater than 55% may lead to inaccurate results in coagulation testing. Patients having hematocrit values >55% require a special collection tube for coagulation studies. Please contact the laboratory at [phone] for redraw instructions. Order Comment: REDRA W Result Comment: A he matocrit value greater than 55% may lead to inaccurate results in coagulation testing. Patients having hematocrit values >55% require a special collection tube for coagulation studies. Please contact the laboratory at [phone] for redraw instructions. Performed By: #### G LULS #### Point of Care testing , Serum globulin measurement b y calculation (mass/volume)Ordered By: Alma Deng on 10-01-2023 Globulin (S) [Mass/Vol] 2.2 g/dL Normal [facility] Comment on above: Order Comment: SPECI MEN GROSSLY HEMOLYZED. NOTIFIED IRIS Performed By: #### U TAYLOR MINAYA UEOS #### [address] Serum or plasma albumin/glob ulin mass ratioOrdered By: Mayratania Huyuche on 10-01-2023 Albumin/Globulin [Mass ratio] 1.8 {ratio} Normal [facility] Comment on above: Order Comment: SPECI MEN GROSSLY HEMOLYZED. NOTIFIED IRIS Performed By: #### U CREAJOSHUANA, UEOS #### [address] Sodium [Moles/volume] in Uri neOrdered By: Alma Huyuche on 10-01-2023 Sodium (U) [Moles/Vol] 54.0 mmol/L Normal [facility] Comment on above: No reference range e stablished Result Comment: No r eference range established Performed By: #### U TAYLOR MINAYA UEOS #### [address] Specific gravity Test strip (U) [Rel density]Ordered By: Mayratania Huyuche on 10-01-2023 Specific gravity (U) [Rel density] 1.009 1.001-1.030 [facility] Urine appearanceOrdered By: Mayratania Huyuche on 10-01-2023 Appearance (U) Clear Normal Clear [facility] Comment on above: Order Comment: Name Collection Type:: Other Performed By: #### A DDONUAPLUS #### [address] Urobilinogen Test strip (U) [Mass/Vol]Ordered By: Alma Huyuche on 10-01-2023 Urobilinogen (U) [Mass/Vol] Normal mg/dL Normal [facility] pH of Urine by Test stripOrd ered By: Mayratania Christibonnie on 10-01-2023 pH (U) 5.5 [pH] Normal 5.0-9.0 [facility] Comment on above: Order Comment: Name Collection Type:: Other Performed By: #### A DDONUAPLUS #### [facility] [address] [place] [id number] [place] 36on 09-20-2023 36 Patient's insurance denied a carotid duplex again. Is there anything else you'd like me to do? :( Normal [facility] Office Visiton 09-11-2023 Follow-up visit [id number] Nithin Humphreys 1970 F Date Provider Department Center 09/11/2023 Pranay-TK [facility] No family history on file Level of Service:92357 [place] OFFICE/OUTPATIENT ESTABLISHED MOD MDM 30 MIN Normal [facility] Albumin [Mass/volume] in Ser um or Plasma by Bromocresol green (BCG) dye binding methoOrdered By: Halle Mac on 08-10-2023 Albumin BCG dye [Mass/Vol] 4.0 g/dL 3.5-5.7 [facility] Automated erythrocytes count in urine sediment (number/area)Ordered By: Halle Mac on 08-10-2023 RBC Auto (Urine sed) [#/Area] None seen [HPF] 0-4 [facility] Automated leukocytes count i n urine sediment (number/area)Ordered By: Halle Mac on 08-10-2023 WBC Auto (Urine sed) [#/Area] 3-4 [HPF] 0-4 [facility] Automated urine color determ inationOrdered By: Halle Mac on 08-10-2023 Color (U) Yellow Normal Yellow [facility] Comment on above: Order Comment: Name Collection Type:: Clean-Voided Midstream Performed By: #### P LESLEE ADDONUAPLUS #### [facility] [address] [place] [id number] [facility] Bilirubin Test strip Ql (U)O rdered By: Halle Mac on 08-10-2023 Bilirubin Ql (U) Negative Negative [facility] Calcium [Mass/volume] in Ser um or PlasmaOrdered By: Halle Mac on 08-10-2023 Calcium [Mass/Vol] 9.3 mg/dL Normal 8.6-10.3 [facility] Comment on above: Performed By: #### U CREA, URNA, UEOS #### [facility] [address] [place] [address] [place] Carbon dioxide, total [Moles /volume] in Serum or PlasmaOrdered By: Halle Mac on 08-10-2023 CO2 [Moles/Vol] 24.8 mmol/L Normal 21.0-31.0 [facility] Comment on above: Performed By: #### U CREA, URNA, UEOS #### [facility] [address] [place] [address] [place] Chloride [Moles/volume] in S brunilda or PlasmaOrdered By: Halle Mac on 08-10-2023 Chloride [Moles/Vol] 110 mmol/L High 98-107 [facility] Comment on above: Performed By: #### U CREA, URNA, UEOS #### [facility] [address] [place] [address] [place] Creatinine [Mass/volume] in Serum or PlasmaOrdered By: Halle Mac on 08-10-2023 Creatinine [Mass/Vol] 1.59 mg/dL High 0.60-1.20 [facility] Comment on above: Performed By: #### U CREA, URNA, UEOS #### [facility] [address] [place] [address] [place] Creatinine [Mass/volume] in UrineOrdered By: Halle Mac on 08-10-2023 Creatinine (U) [Mass/Vol] 92.0 mg/dL [facility] Comment on above: No reference range e stablished Dipstick and Microscopicon 0 08-10-2023 Appearance (U) Clear Normal Clear [facility] Comment on above: Order Comment: Name Collection Type:: Clean-Voided Midstream Performed By: #### P ROCRERAT, ADDONUAPLUS #### [facility] [address] [place] [address] [place] Bacteria,Urine None Seen Normal None Seen [facility] Comment on above: Order Comment: Name Collection Type:: Clean-Voided Midstream Performed By: #### P ROCRERAT, ADDONUAPLUS #### [address] Bilirubin,Urine Negative Normal Negative [facility] Comment on above: Order Comment: Name Collection Type:: Clean-Voided Midstream Performed By: #### P ROCRERAT, ADDONUAPLUS #### [address] Glucose Ql (U) Normal Normal Normal [facility] Comment on above: Order Comment: Name Collection Type:: Clean-Voided Midstream Performed By: #### P ROCRERAT, ADDONUAPLUS #### [address] Hyaline Casts,Urine None Seen Normal 0-8 [facility] Comment on above: Order Comment: Name Collection Type:: Clean-Voided Midstream Result Comment: PERF ORMED BY: [place] [id number] PATHOLOGIST DIGITAL COMMENTATOR ARIC BUTLER M.D. Performed By: #### P ROCRERAT, ADDONUAPLUS #### [address] Ketones Ql (U) Negative Normal Negative [facility] Comment on above: Order Comment: Name Collection Type:: Clean-Voided Midstream Performed By: #### P ROCRERAT, ADDONUAPLUS #### [address] Leukocyte esterase Test strip Ql (U) 2+ High Negative [facility] Comment on above: Order Comment: Name Collection Type:: Clean-Voided Midstream Performed By: #### P ROCRERAT, ADDONUAPLUS #### [place] [address] [place] Nitrite,Urine Negative Normal Negative [facility] Comment on above: Order Comment: Name Collection Type:: Clean-Voided Midstream Performed By: #### P ROCRERAT, ADDONUAPLUS #### [place] [address] [place] Occult Blood,Urine Negative Normal Negative [facility] Comment on above: Order Comment: Name Collection Type:: Clean-Voided Midstream Result Comment: PERF ORMED BY: [place] [id number] PATHOLOGIST DIGITAL COMMENTATOR ARIC BUTLER M.D. Performed By: #### P ROCRERAT, ADDONUAPLUS #### [address] Protein,Urine Negative Normal Negative [facility] Comment on above: Order Comment: Name Collection Type:: Clean-Voided Midstream Performed By: #### P ROCRERAT, ADDONUAPLUS #### [place] [address] [place] RBC,Urine None Seen Normal 0-4 [facility] Comment on above: Order Comment: Name Collection Type:: Clean-Voided Midstream Performed By: #### P ROCRERAT, ADDONUAPLUS #### [place] [address] [place] Specificy Charmco,Urine 1.015 Normal 1.001-1.030 [facility] Comment on above: Order Comment: Name Collection Type:: Clean-Voided Midstream Performed By: #### P ROCRERAT, ADDONUAPLUS #### [address] Squamous Epithelial Cell,Urine None Seen Normal 0-2 [facility] Comment on above: Order Comment: Name Collection Type:: Clean-Voided Midstream Performed By: #### P ROCRERAT, ADDONUAPLUS #### [place] [address] [place] Urobilinogen,Urine Normal Normal Normal [facility] Comment on above: Order Comment: Name Collection Type:: Clean-Voided Midstream Performed By: #### P ROCRERAT, ADDONUAPLUS #### [place] [address] [place] WBC,Urine 3-4 Normal 0-4 [facility] Comment on above: Order Comment: Name Collection Type:: Clean-Voided Midstream Performed By: #### P MYLES CAMILOUAPLUS #### [facility] [address] Erythrocyte distribution wid th [Ratio] by Automated countOrdered By: Halle Mac on 08-10-2023 Erythrocyte distribution width (RBC) [Ratio] 15.1 % Normal 11.9-15.3 [facility] Comment on above: Performed By: #### TAYLOR CONLEY UEOS #### [facility] [address] Erythrocytes [#/volume] in B lood by Automated countOrdered By: Halle Mac on 08-10-2023 RBC (Bld) [#/Vol] 3.89 10*6/uL Normal 3.60-5.00 [facility] Comment on above: Performed By: #### TAYLOR CONLEY UEOS #### [facility] [address] [place] [address] [place] Ferritin [Mass/volume] in Se rum or PlasmaOrdered By: Halle Mac on 08-10-2023 Ferritin [Mass/Vol] 62.9 ng/mL Normal 11.0-306.8 [facility] Comment on above: Performed By: #### TAYLOR CONLEY UEOS #### [address] Folate [Mass/volume] in Seru m or PlasmaOrdered By: Halle Mac on 08-10-2023 Folate [Mass/Vol] 15.7 ng/mL >5.9 [facility] Comment on above: Folate reference ran ge: >5.9 ng/mlThe WHO technical consultation on folate and vitamin [id number] has determined that folate concentrations lessthan 4 ng/ml are considered deficient. Glucose [Mass/volume] in Ser um or PlasmaOrdered By: Halle Mac on 08-10-2023 Glucose [Mass/Vol] 94 mg/dL Normal 70-100 [facility] Comment on above: ADA recommended refe rence rangeRandom Glucose Reference Range is dependent on time and content of last meal. Glucose of more than 200 mg/dL in a nonstressed, ambulatory subject supports the diagnosis of Diabetes Mellitus. Result Comment: [facility] Glucose Reference Range is dependent on time and content of last meal. Glucose of more than 200 mg/dL in a nonstressed, ambulatory subject supports the diagnosis of Diabetes Mellitus. ADA recommended reference range Performed By: #### TAYLOR CONLEY UEOS #### [address] Hematocrit [Volume Fraction] of Blood by Automated countOrdered By: Halle Mac on 08-10-2023 Hematocrit (Bld) [Volume fraction] 35.0 % Normal 34.0-46.4 [facility] Comment on above: Performed By: #### TAYLOR CONLEY UEOS #### [address] Hemoglobin [Mass/volume] in BloodOrdered By: Halle Mac on 08-10-2023 Hemoglobin (Bld) [Mass/Vol] 11.5 g/dL Low 11.8-15.4 [facility] Comment on above: Performed By: #### TAYLOR CONLEY UEOS #### [address] Hemogram CBC Without Diffon 08-10-2023 Mean Corpuscular HGB Conc 32.9 g/dL Normal 32.0-35.0 [facility] Comment on above: Performed By: #### U CRETAYLOR Patel UEOS #### [address] WBC (Bld) [#/Vol] 4.0 10*3/uL Normal 3.8-11.6 [facility] Comment on above: Performed By: #### U TAYLOR MINAYA UEOS #### [address] Iron [Mass/volume] in Serum or PlasmaOrdered By: Halle Mac on 08-10-2023 Iron [Mass/Vol] 75 ug/dL Normal 50-212 [facility] Comment on above: Performed By: #### U CREA, URGREGG, UEOS #### [facility] [address] Iron and TIBC Profileon 07-16 % Iron Saturation 15.6 % Low 20-50 [facility] Comment on above: Performed By: #### U CREA URNA, UEOS #### [facility] [address] Total Iron Binding Capacity 480 ug/dL High 255-450 [facility] Comment on above: Performed By: #### U CREA, URNA, UEOS #### [facility] [address] Iron binding capacity [Mass/ volume] in Serum or PlasmaOrdered By: Halle Mac on 08-10-2023 Iron binding capacity [Mass/Vol] 480 ug/dL High 255-450 [facility] Iron saturation [Mass Fracti on] in Serum or PlasmaOrdered By: Halle Mac on 08-10-2023 Iron saturation [Mass fraction] 15.6 % Low 20-50 [facility] Ketones Auto test strip (U) [Mass/Vol]Ordered By: Halle Mac on 08-10-2023 Ketones (U) [Mass/Vol] Negative Negative [facility] - UrinalysisOrder ed By: Halle Mac on 08-10-2023 Hyaline casts LM Ql (Urine sed) None seen [LPF] 0-8 [facility] Leukocytes [#/volume] correc joaquin for nucleated erythrocytes in Blood by Automated counOrdered By: Halle Mac on 08-10-2023 WBC corrected for nucl RBC Auto (Bld) [#/Vol] 4.0 10*3/uL 3.8-11.6 [facility] MCH [Entitic mass] by Automa joaquin countOrdered By: Halle Mac on 08-10-2023 MCH (RBC) [Entitic mass] 29.6 pg Normal 24.7-34.3 [facility] Comment on above: Performed By: #### U CREA, URNA, UEOS #### [facility] [address] MCHC Auto (RBC) [Mass/Vol]Or dered By: Halle Mac on 08-10-2023 MCHC (RBC) [Mass/Vol] 32.9 g/dL 32.0-35.0 [facility] MCV [Entitic volume] by Auto mated countOrdered By: Halle Mac on 08-10-2023 MCV (RBC) [Entitic vol] 90.0 fL Normal 80-100 [facility] Comment on above: Performed By: #### U CREA URNA, UEOS #### [facility] [address] [place] [address] Magnesium [Mass/volume] in S brunilda or PlasmaOrdered By: Halle Mac on 08-10-2023 Magnesium [Mass/Vol] 1.9 mg/dL Normal 1.9-2.7 [facility] Comment on above: Performed By: #### U CREAJOSHUANA, UEOS #### [address] Nitrite Test strip Ql (U)Ord ered By: Halle Mac on 08-10-2023 Nitrite Ql (U) Negative Negative [facility] No Panel InformationOrdered By: Halle Mac on 08-10-2023 Estimated GFR (CKD-EPI) 38.856 mL/Min [facility] Creatinine Clearance (Chem N/A [facility] Parathyrin.intact [Mass/volu me] in Serum or PlasmaOrdered By: Halle Mac on 08-10-2023 Parathyrin.intact [Mass/Vol] 38.7 pg/mL [facility] Parathyroid Hormone Intacton 08-10-2023 Parathyroid Hormone Intact 38.7 pg/mL Normal [facility] Comment on above: Result Comment: PERF ORMED BY: [place] [id number] PATHOLOGIST DIGITAL COMMENTATOR ARIC BUTLER M.D. Performed By: #### U CREA, URNA, UEOS #### [facility] [address] [place] [address] [place] Phosphate [Mass/volume] in S brunilda or PlasmaOrdered By: Halle Mac on 08-10-2023 Phosphate [Mass/Vol] 3.7 mg/dL Normal 2.5-4.5 [facility] Comment on above: Performed By: #### U CREA, URNA, UEOS #### [place] [address] [place] Platelet mean volume [Entiti c volume] in Blood by Automated countOrdered By: Halle Mac on 08-10-2023 Platelet mean volume (Bld) [Entitic vol] 9.8 fL Normal 6.3-10.7 [facility] Comment on above: Result Comment: PERF ORMED BY: [place] [id number] PATHOLOGIST DIGITAL COMMENTATOR ARIC BUTLER M.D. Performed By: #### U CREA, URNA, UEOS #### [address] Platelets [#/volume] in Bloo d by Automated countOrdered By: Halle Mac on 08-10-2023 Platelets (Bld) [#/Vol] 217 10*3/uL Normal 150-450 [facility] Comment on above: Performed By: #### U CREA, URNA, UEOS #### [place] [address] [place] Potassium [Moles/volume] in Serum or PlasmaOrdered By: Halle Mac on 08-10-2023 Potassium [Moles/Vol] 4.5 mmol/L Normal 3.5-5.1 [facility] Comment on above: Performed By: #### U CREA, URNA, UEOS #### [address] Protein Auto test strip (U) [Mass/Vol]Ordered By: Halle Mac on 08-10-2023 Protein (U) [Mass/Vol] Negative Negative [facility] Protein Creat Ratio Ur Rando mon 08-10-2023 Creatinine, Urine (Random) 92.0 mg/dL Normal [facility] Comment on above: Result Comment: No r eference range established Performed By: #### P JOHS CAMILOPLUS #### [address] Protein, Urine (Random) < 4 Normal 0-9 [facility] Comment on above: Performed By: #### P ROXANA CAMILOONUAPLUS #### [address] Urine Protein/Creatinine Ratio Not performed Normal 0-200 [facility] Comment on above: Result Comment: PERF ORMED BY: [place] [id number] PATHOLOGIST DIGITAL COMMENTATOR ARIC BUTLER M.D. Performed By: #### P JOSH CAMILOPLUS #### [address] Protein [Mass/volume] in Uri neOrdered By: Halle Mac on 08-10-2023 Protein (U) [Mass/Vol] mg/dL 0-9 [facility] Renal Function Panelon 08-09 Albumin [Mass/Vol] 4.0 g/dL Normal 3.5-5.7 [facility] Comment on above: Performed By: #### U CREAmanda URNA UEOS #### [place] [address] [place] GFR/1.73 sq M.predicted MDRD (S/P/Bld) [Vol rate/Area] 38.856 mL/min/{1.73_m2} Normal [facility] Comment on above: Performed By: #### U CREA URNA, UEOS #### [address] Serum or plasma anion gap de terminationOrdered By: Halle Mac on 08-10-2023 Anion gap [Moles/Vol] 11.7 mmol/L Normal 6.0-15.0 [facility] Comment on above: Performed By: #### U CREA, URNA, UEOS #### [facility] [address] [place] [address] [place] Sodium [Moles/volume] in Ser um or PlasmaOrdered By: Halle Mac on 08-10-2023 Sodium [Moles/Vol] 142 mmol/L Normal 136-145 [facility] Comment on above: Performed By: #### U CREA, URNA, UEOS #### [facility] [address] [place] [address] [place] Specific gravity Auto test s trip (U) [Rel density]Ordered By: Halle Mac on 08-10-2023 Specific gravity (U) [Rel density] 1.015 1.001-1.030 [facility] Squamous epithelial cells de tection in urine sediment by light microscopyOrdered By: Halle Mac on 08-10-2023 Epithelial cells.squamous LM Ql (Urine sed) None seen [HPF] 0-2 [facility] Transferrin [Mass/volume] in Serum or PlasmaOrdered By: Halle Mac on 08-10-2023 Transferrin [Mass/Vol] 343 mg/dL Normal 203-362 [facility] Comment on above: Performed By: #### U CREA, URNA, UEOS #### [facility] [address] [place] [address] [place] Urate [Mass/volume] in Serum or PlasmaOrdered By: Halle Mac on 08-10-2023 Urate [Mass/Vol] 8.6 mg/dL High 2.3-6.6 [facility] Comment on above: Performed By: #### U CREA, URNA, UEOS #### [facility] [address] [place] [address] [place] Urea nitrogen [Mass/volume] in Serum or PlasmaOrdered By: Halle Mac on 08-10-2023 Urea nitrogen [Mass/Vol] 32 mg/dL High 7-25 [facility] Comment on above: Performed By: #### U CREA, URNA, UEOS #### [facility] [address] [place] [id number] [facility] Urine bacteria detection by automated methodOrdered By: Halle Mac on 08-10-2023 Bacteria Auto Ql (U) None seen None Seen [facility] Urine clarity by refractomet ry automatedOrdered By: Halle Mac on 08-10-2023 Clarity Refractometry automated (U) Clear Clear [facility] Urine glucose measurement by automated test strip (mass/volume)Ordered By: Halle Mac on 08-10-2023 Glucose Auto test strip (U) [Mass/Vol] Normal mg/dL Normal [facility] Urine hemoglobin detection b y automated test stripOrdered By: Halle Mac on 08-10-2023 Hemoglobin Auto test strip Ql (U) Negative Negative [facility] Urine leukocyte esterase det ection by automated test stripOrdered By: Halle Mac on 08-10-2023 Leukocyte esterase Auto test strip Ql (U) 2+ High Negative [facility] Urine pH measurement by auto mated test stripOrdered By: Halle Mac on 08-10-2023 pH (U) 5.5 [pH] Normal 5.0-9.0 [facility] Comment on above: Order Comment: Name Collection Type:: Clean-Voided Midstream Performed By: #### P RAMOS CAMILO #### [facility] [address] [place] [address] [place] Urine protein/creatinine rat ioOrdered By: Halle Mac on 08-10-2023 Protein/Creatinine (U) [Ratio] TNP [facility] Comment on above: Test not performed Urobilinogen Auto test strip (U) [Mass/Vol]Ordered By: Halle Mac on 08-10-2023 Urobilinogen (U) [Mass/Vol] Normal mg/dL Normal [facility] Vit. B12/Folate Profileon Folate 15.7 ng/mL Normal >5.9 [facility] Comment on above: Result Comment: Maria te reference range: >5.9 ng/ml The WHO technical consultation on folate and vitamin b12 deficiencies has determined that folate concentrations less than 4 ng/ml are considered deficient. Performed By: #### U REI URNA, UEOS #### [facility] [address] Vitamin B12 ser/plasOrdered By: Halle Mac on 08-10-2023 Cobalamin (Vitamin B12) [Mass/Vol] 164 pg/mL Low 180-914 [facility] Comment on above: Performed By: #### TAYLOR CONLEY UEOS #### [facility] [address] [place], [place] [id number] [facility] Vitamin D 25 Hydroxy Totalon 08-10-2023 Vitamin D 25 Hydroxy Total 22.4 ng/mL Low 30-100 [facility] Comment on above: Result Comment: AWAIS MIN D STATUS 25(OH)VITAMIN D RANGE (ng/mL) Deficient <20 Insufficient 20 to <30 Sufficient 30 to 100 Reference: Nicole Almonte, Ed LI, et al. Evaluation,treatment, and prevention of vitamin D deficiency; an Endocrine Society clinical practice guideline. JCEM. 2010; 96(7):1911-30. PERFORMED BY: [place] [id number] PATHOLOGIST DIGITAL COMMENTATOR AIRC BUTLER M.D. Performed By: #### TAYLOR CONLEY UEOS #### [facility] [address] [place], [place] [id number] [facility] Vitamin D+Metabolites [Mass/ volume] in Serum or PlasmaOrdered By: Halel Mac on 08-10-2023 Vitamin D+Metabolites [Mass/Vol] 22.4 ng/mL Low 30-100 [facility] Comment on above: VITAMIN D STATUS 25( [place])VITAMIN D RANGE (ng/mL) Deficient <20 Insufficient 20 to <30Sufficient 30 to 100Reference: Nicole Almonte, Ed LI, et al. Evaluation,treatment, and prevention of vitamin D deficiency; an Endocrine Society clinical practice guideline. JCEM. 2010; 96(7):1911-. Valproate [Mass/volume] in S brunilda or PlasmaOrdered By: Fauzia Huffman on 06-19-2023 Valproate [Mass/Vol] 14.5 ug/mL 50.0-100.0 [facility] Comment on above: Last dose: - Valproic Acid (in house)on 0 06-19-2023 Valproic Acid (in house) 14.5 ug/mL Low 50.0-100.0 [facility] Comment on above: Result Comment: Last dose: - PERFORMED BY: [facility] [place] [address] PATHOLOGIST DIGITAL COMMENTATOR ARIC BUTLER M.D. Performed By: #### G LULS #### Point of Care testing , Alanine aminotransferase [En zymatic activity/volume] in Serum or PlasmaOrdered By: Halle Mac on 05-17-2023 ALT [Catalytic activity/Vol] 16 U/L Normal 7-52 [facility] Comment on above: Order Comment: Reaso n for Exam Chronic kidney disease, stage 3b;Hypertensive nephropathy;Di Performed By: #### G LULS #### Point of Care testing , Albumin [Mass/volume] in Ser um or Plasma by Bromocresol green (BCG) dye binding methoOrdered By: Halle Mac on 05-17-2023 Albumin BCG dye [Mass/Vol] 4.3 g/dL 3.5-5.7 [facility] Alkaline phosphatase [Enzyma tic activity/volume] in Serum or PlasmaOrdered By: Halle Mac on 05-17-2023 ALP [Catalytic activity/Vol] 61 U/L Normal 34-104 [facility] Comment on above: Order Comment: Reaso n for Exam Chronic kidney disease, stage 3b;Hypertensive nephropathy;Di Performed By: #### G LULS #### Point of Care testing , Aspartate aminotransferase [ Enzymatic activity/volume] in Serum or PlasmaOrdered By: Halle Mac on 05-17-2023 AST [Catalytic activity/Vol] 23 U/L Normal 13-39 [facility] Comment on above: Order Comment: Reaso n for Exam Chronic kidney disease, stage 3b;Hypertensive nephropathy;Di Performed By: #### G LULS #### Point of Care testing , Automated erythrocytes count in urine sediment (number/area)Ordered By: Halle Mac on 05-17-2023 RBC Auto (Urine sed) [#/Area] 3-4 [HPF] 0-4 [facility] Automated leukocytes count i n urine sediment (number/area)Ordered By: Halle Mac on 05-17-2023 WBC Auto (Urine sed) [#/Area] 10-19 [HPF] 0-4 [facility] Automated urine color determ inationOrdered By: Halle Mac on 05-17-2023 Color (U) Dark yellow Critically abnormal Yellow [facility] Comment on above: Order Comment: Name Collection Type:: Other Performed By: #### A DDONUAPLUS #### [facility] [address] Bilirubin Test strip Ql (U)O rdered By: Halle Mac on 05-17-2023 Bilirubin Ql (U) 2+ Negative [facility] Bilirubin.total [Mass/volume ] in Serum or PlasmaOrdered By: Halle Mac on 05-17-2023 Bilirubin [Mass/Vol] 0.5 mg/dL Normal 0.3-1.0 [facility] Comment on above: Order Comment: Reaso n for Exam Chronic kidney disease, stage 3b;Hypertensive nephropathy;Di Performed By: #### G LULS #### Point of Care testing , Calcium [Mass/volume] in Ser um or PlasmaOrdered By: Halle Mac on 05-17-2023 Calcium [Mass/Vol] 9.3 mg/dL Normal 8.6-10.3 [facility] Comment on above: Order Comment: Reaso n for Exam Chronic kidney disease, stage 3b;Hypertensive nephropathy;Di Performed By: #### G LULS #### Point of Care testing , Carbon dioxide, total [Moles /volume] in Serum or PlasmaOrdered By: Halle Mac on 05-17-2023 CO2 [Moles/Vol] 28.0 mmol/L Normal 21.0-31.0 [facility] Comment on above: Order Comment: Reaso n for Exam Chronic kidney disease, stage 3b;Hypertensive nephropathy;Di Performed By: #### G LULS #### Point of Care testing , Casts typing in urine sedime nt by light microscopyOrdered By: Halle Mac on 05-17-2023 Casts LM Nom (Urine sed) None seen [LPF] None Seen [facility] Chloride [Moles/volume] in S brunilda or PlasmaOrdered By: Halle Mac on 05-17-2023 Chloride [Moles/Vol] 107 mmol/L Normal 98-107 [facility] Comment on above: Order Comment: Reaso n for Exam Chronic kidney disease, stage 3b;Hypertensive nephropathy;Di Performed By: #### G LULS #### Point of Care testing , Comprehensive Metabolic Pane pillo 05-17-2023 Albumin [Mass/Vol] 4.3 g/dL Normal 3.5-5.7 [facility] Comment on above: Order Comment: Reaso n for Exam Chronic kidney disease, stage 3b;Hypertensive nephropathy;Di Performed By: #### G LULS #### Point of Care testing , GFR/1.73 sq M.predicted MDRD (S/P/Bld) [Vol rate/Area] 41.013 mL/min/{1.73_m2} Normal [facility] Comment on above: Order Comment: Reaso n for Exam Chronic kidney disease, stage 3b;Hypertensive nephropathy;Di Performed By: #### G LULS #### Point of Care testing , Creatinine [Mass/volume] in Serum or PlasmaOrdered By: Halle Mac on 05-17-2023 Creatinine [Mass/Vol] 1.52 mg/dL High 0.60-1.20 [facility] Comment on above: Order Comment: Reaso n for Exam Chronic kidney disease, stage 3b;Hypertensive nephropathy;Di Performed By: #### G LULS #### Point of Care testing , Creatinine [Mass/volume] in UrineOrdered By: Halle Mac on 05-17-2023 Creatinine (U) [Mass/Vol] mg/dL 11.0-20.0 [facility] Dipstick and Microscopicon 0 05-17-2023 Appearance (U) Cloudy Critically abnormal Clear [facility] Comment on above: Order Comment: Name Collection Type:: Other Performed By: #### A DDONUAPLUS #### [place] [id number] [place] Bacteria,Urine None Seen Normal None Seen [facility] Comment on above: Order Comment: Name Collection Type:: Other Performed By: #### A DDONUAPLUS #### [address] Bilirubin,Urine 2+ High Negative [facility] Comment on above: Order Comment: Name Collection Type:: Other Performed By: #### A DDONUAPLUS #### [address] Fine Granular Casts,Urine 5-9 High 0-1 [facility] Comment on above: Order Comment: Name Collection Type:: Other Performed By: #### A DDONUAPLUS #### [address] Glucose Ql (U) Normal Normal Normal [facility] Comment on above: Order Comment: Name Collection Type:: Other Performed By: #### A DDONUAPLUS #### [address] Hyaline Casts,Urine None Seen Normal 0-8 [facility] Comment on above: Order Comment: Name Collection Type:: Other Performed By: #### A DDONUAPLUS #### [address] Ketones Ql (U) 1+ High Negative [facility] Comment on above: Order Comment: Name Collection Type:: Other Performed By: #### A DDONUAPLUS #### [address] Leukocyte esterase Test strip Ql (U) 1+ High Negative [facility] Comment on above: Order Comment: Name Collection Type:: Other Performed By: #### A DDONUAPLUS #### [place] [address] [place] Mucus,Urine 3+ Critically abnormal [facility] Comment on above: Order Comment: Name Collection Type:: Other Performed By: #### A DDONUAPLUS #### [address] Nitrite,Urine Negative Normal Negative [facility] Comment on above: Order Comment: Name Collection Type:: Other Performed By: #### A DDONUAPLUS #### [address] Occult Blood,Urine Negative Normal Negative [facility] Comment on above: Order Comment: Name Collection Type:: Other Result Comment: PERF ORMED BY: [place] [id number] PATHOLOGIST DIGITAL COMMENTATOR ARIC BUTLER M.D. Performed By: #### A DDONUAPLUS #### [address] Other Casts,Urine None Seen Normal None Seen [facility] Comment on above: Order Comment: Name Collection Type:: Other Performed By: #### A DDONUAPLUS #### [address] RBC,Urine 3-4 Normal 0-4 [facility] Comment on above: Order Comment: Name Collection Type:: Other Performed By: #### A DDONUAPLUS #### [address] Specificy Charmco,Urine 1.025 Normal 1.001-1.030 [facility] Comment on above: Order Comment: Name Collection Type:: Other Performed By: #### A DDONUAPLUS #### [place] [address] [place] Squamous Epithelial Cell,Urine 3-4 High 0-2 [facility] Comment on above: Order Comment: Name Collection Type:: Other Performed By: #### A DDONUAPLUS #### [place] [address] [place] Urobilinogen,Urine Normal Normal Normal [facility] Comment on above: Order Comment: Name Collection Type:: Other Performed By: #### A DDONUAPLUS #### [place] [address] [place] WBC,Urine 10-19 High 0-4 [facility] Comment on above: Order Comment: Name Collection Type:: Other Performed By: #### A DDONUAPLUS #### [address] Yeast,Urine None Seen Normal None Seen [facility] Comment on above: Order Comment: Name Collection Type:: Other Result Comment: PERF ORMED BY: [place] [id number] PATHOLOGIST DIGITAL COMMENTATOR ARIC BUTLER M.D. Performed By: #### A DDONUAPLUS #### [address] Erythrocyte distribution wid th [Ratio] by Automated countOrdered By: Halle Mac on 05-17-2023 Erythrocyte distribution width (RBC) [Ratio] 13.4 % Normal 11.9-15.3 [facility] Comment on above: Order Comment: Reaso n for Exam Chronic kidney disease, stage 3b;Hypertensive nephropathy;Di Performed By: #### C BCNO #### [address] Erythrocytes [#/volume] in B lood by Automated countOrdered By: Halle Mac on 05-17-2023 RBC (Bld) [#/Vol] 4.03 10*6/uL Normal 3.60-5.00 [facility] Comment on above: Order Comment: Reaso n for Exam Chronic kidney disease, stage 3b;Hypertensive nephropathy;Di Performed By: #### C BCNO #### [address] Ferritin [Mass/volume] in Se rum or PlasmaOrdered By: Halle Mac on 05-17-2023 Ferritin [Mass/Vol] 51.8 ng/mL Normal 11.0-306.8 [facility] Comment on above: Order Comment: Reaso n for Exam Chronic kidney disease, stage 3b;Hypertensive nephropathy;Di Performed By: #### G LULS #### Point of Care testing , Fine granular cast count in urine sediment by microscopy (number/low power field )Ordered By: Halle Mac on 05-17-2023 Fine Granular Casts LM.LPF (Urine sed) [#/Area] 5-9 [LPF] 0-1 [facility] Glucose [Mass/volume] in Ser um or PlasmaOrdered By: Halle Mac on 05-17-2023 Glucose [Mass/Vol] 123 mg/dL High 70-100 [facility] Comment on above: ADA recommended refe rence rangeRandom Glucose Reference Range is dependent on time and content of last meal. Glucose of more than 200 mg/dL in a nonstressed, ambulatory subject supports the diagnosis of Diabetes Mellitus. Order Comment: Reaso n for Exam Chronic kidney disease, stage 3b;Hypertensive nephropathy;Di Result Comment: [place] Glucose Reference Range is dependent on time and content of last meal. Glucose of more than 200 mg/dL in a nonstressed, ambulatory subject supports the diagnosis of Diabetes Mellitus. ADA recommended reference range Performed By: #### G LUBESSIE #### Point of Care testing , Hematocrit [Volume Fraction] of Blood by Automated countOrdered By: Halle Mac on 05-17-2023 Hematocrit (Bld) [Volume fraction] 36.1 % Normal 34.0-46.4 [facility] Comment on above: Order Comment: Reaso n for Exam Chronic kidney disease, stage 3b;Hypertensive nephropathy;Di Performed By: #### C BCNO #### [facility] [address] [place] [address] Hemoglobin [Mass/volume] in BloodOrdered By: Halle Mac on 05-17-2023 Hemoglobin (Bld) [Mass/Vol] 11.8 g/dL Normal 11.8-15.4 [facility] Comment on above: Order Comment: Reaso n for Exam Chronic kidney disease, stage 3b;Hypertensive nephropathy;Di Performed By: #### C BCNO #### [facility] [address] Hemogram CBC Without Diffon 05-17-2023 Mean Corpuscular HGB Conc 32.8 g/dL Normal 32.0-35.0 [facility] Comment on above: Order Comment: Reaso n for Exam Chronic kidney disease, stage 3b;Hypertensive nephropathy;Di Performed By: #### C BCNO #### [facility] [address] [place] [id number] [place] WBC (Bld) [#/Vol] 5.5 10*3/uL Normal 3.8-11.6 [facility] Comment on above: Order Comment: Reaso n for Exam Chronic kidney disease, stage 3b;Hypertensive nephropathy;Di Performed By: #### C BCNO #### [facility] [address] Iron [Mass/volume] in Serum or PlasmaOrdered By: Halle Mac on 05-17-2023 Iron [Mass/Vol] 57 ug/dL Normal 50-212 [facility] Comment on above: Order Comment: Reaso n for Exam Chronic kidney disease, stage 3b;Hypertensive nephropathy;Di Performed By: #### G LULS #### Point of Care testing , Iron and TIBC Profileon % Iron Saturation 10.6 % Low 20-50 [facility] Comment on above: Order Comment: Reaso n for Exam Chronic kidney disease, stage 3b;Hypertensive nephropathy;Di Performed By: #### G LULS #### Point of Care testing , Total Iron Binding Capacity 538 ug/dL High 255-450 [facility] Comment on above: Order Comment: Reaso n for Exam Chronic kidney disease, stage 3b;Hypertensive nephropathy;Di Performed By: #### G LULS #### Point of Care testing , Iron binding capacity [Mass/ volume] in Serum or PlasmaOrdered By: Halle Mac on 05-17-2023 Iron binding capacity [Mass/Vol] 538 ug/dL 255-450 [facility] Iron saturation [Mass Fracti on] in Serum or PlasmaOrdered By: Halle Mac on 05-17-2023 Iron saturation [Mass fraction] 10.6 % 20-50 [facility] Ketones Auto test strip (U) [Mass/Vol]Ordered By: Halle Mac on 05-17-2023 Ketones (U) [Mass/Vol] 1+ Negative [facility] - UrinalysisOrder ed By: Halle Mac on 05-17-2023 Hyaline casts LM Ql (Urine sed) None seen [LPF] 0-8 [facility] Leukocytes [#/volume] correc joaquin for nucleated erythrocytes in Blood by Automated counOrdered By: Halle Mca on 05-17-2023 WBC corrected for nucl RBC Auto (Bld) [#/Vol] 5.5 10*3/uL 3.8-11.6 [facility] MCH [Entitic mass] by Automa joaquin countOrdered By: Halle Mac on 05-17-2023 MCH (RBC) [Entitic mass] 29.4 pg Normal 24.7-34.3 [facility] Comment on above: Order Comment: Reaso n for Exam Chronic kidney disease, stage 3b;Hypertensive nephropathy;Di Performed By: #### C BCNO #### [facility] [address] [place] [address] MCHC Auto (RBC) [Mass/Vol]Or dered By: Halle Mac on 05-17-2023 MCHC (RBC) [Mass/Vol] 32.8 g/dL 32.0-35.0 [facility] MCV [Entitic volume] by Auto mated countOrdered By: Halle Mac on 05-17-2023 MCV (RBC) [Entitic vol] 89.4 fL Normal 80-100 [facility] Comment on above: Order Comment: Reaso n for Exam Chronic kidney disease, stage 3b;Hypertensive nephropathy;Di Performed By: #### C BCNO #### [facility] [address] [place] [address] Magnesium [Mass/volume] in S brunilda or PlasmaOrdered By: Halle Mac on 05-17-2023 Magnesium [Mass/Vol] 2.0 mg/dL Normal 1.9-2.7 [facility] Comment on above: Order Comment: Reaso n for Exam Chronic kidney disease, stage 3b;Hypertensive nephropathy;Di Performed By: #### G LULS #### Point of Care testing , Mucus LM Ql (Urine sed)Order ed By: Halle Mac on 05-17-2023 Mucus Ql (Urine sed) 3+ [LPF] [facility] Nitrite Test strip Ql (U)Ord ered By: Halle Mac on 05-17-2023 Nitrite Ql (U) Negative Negative [facility] No Panel InformationOrdered By: Halle Mac on 05-17-2023 Estimated GFR (CKD-EPI) 41.013 mL/Min [facility] Creatinine Clearance (Chem N/A [facility] Parathyrin.intact [Mass/volu me] in Serum or PlasmaOrdered By: Halle Mac on 05-17-2023 Parathyrin.intact [Mass/Vol] 36.3 pg/mL [facility] Parathyroid Hormone Intacton 05-17-2023 Parathyroid Hormone Intact 36.3 pg/mL Normal [facility] Comment on above: Order Comment: Name Collection Type:: Other Result Comment: PERF ORMED BY: [place] [id number] PATHOLOGIST DIGITAL COMMENTATOR ARIC BUTLER M.D. Performed By: #### A DDONUAPLUS #### [facility] [address] [place] [id number] [place] Phosphate [Mass/volume] in S brunilda or PlasmaOrdered By: Halle Mac on 05-17-2023 Phosphate [Mass/Vol] 4.4 mg/dL Normal 2.5-4.5 [facility] Comment on above: Order Comment: Reaso n for Exam Chronic kidney disease, stage 3b;Hypertensive nephropathy;Di Performed By: #### G LULS #### Point of Care testing , Platelet mean volume [Entiti c volume] in Blood by Automated countOrdered By: Halle Mac on 05-17-2023 Platelet mean volume (Bld) [Entitic vol] 9.5 fL Normal 6.3-10.7 [facility] Comment on above: Order Comment: Reaso n for Exam Chronic kidney disease, stage 3b;Hypertensive nephropathy;Di Result Comment: PERF ORMED BY: [address] [id number] PATHOLOGIST DIGITAL COMMENTATOR ARIC BUTLER M.D. Performed By: #### C BCNO #### [facility] [address] [place] [address] [place] Platelets [#/volume] in Bloo d by Automated countOrdered By: Halle Mac on 05-17-2023 Platelets (Bld) [#/Vol] 233 10*3/uL Normal 150-450 [facility] Comment on above: Order Comment: Reaso n for Exam Chronic kidney disease, stage 3b;Hypertensive nephropathy;Di Performed By: #### C BCNO #### [place] [id number] [facility] Potassium [Moles/volume] in Serum or PlasmaOrdered By: Halle Mac on 05-17-2023 Potassium [Moles/Vol] 3.8 mmol/L Normal 3.5-5.1 [facility] Comment on above: Order Comment: Reaso n for Exam Chronic kidney disease, stage 3b;Hypertensive nephropathy;Di Performed By: #### G LULS #### Point of Care testing , Protein Creat Ratio Ur Rando mon 05-17-2023 Creatinine, Urine (Random) > 300.0 High 11.0-20.0 [facility] Comment on above: Order Comment: Reaso n for Exam Chronic kidney disease, stage 3b;Hypertensive nephropathy;Di Performed By: #### G LULS #### Point of Care testing , Urine Protein/Creatinine Ratio Not performed Normal 0-200 [facility] Comment on above: Order Comment: Reaso n for Exam Chronic kidney disease, stage 3b;Hypertensive nephropathy;Di Result Comment: PERF ORMED BY: [place] [id number] PATHOLOGIST DIGITAL COMMENTATOR ARIC BUTLER M.D. Performed By: #### G LULS #### Point of Care testing , Protein [Mass/volume] in Ser um or PlasmaOrdered By: Halle Mac on 05-17-2023 Protein [Mass/Vol] 6.6 g/dL Normal 6.4-8.9 [facility] Comment on above: Order Comment: Reaso n for Exam Chronic kidney disease, stage 3b;Hypertensive nephropathy;Di Performed By: #### G LULS #### Point of Care testing , Protein [Mass/volume] in Uri neOrdered By: Halle Mac on 05-17-2023 Protein (U) [Mass/Vol] 35 mg/dL High 0-9 [facility] Comment on above: Order Comment: Reaso n for Exam Chronic kidney disease, stage 3b;Hypertensive nephropathy;Di Performed By: #### G LULS #### Point of Care testing , Serum globulin measurement b y calculation (mass/volume)Ordered By: Halle Mac on 05-17-2023 Globulin (S) [Mass/Vol] 2.3 g/dL [facility] Comment on above: Order Comment: Reaso n for Exam Chronic kidney disease, stage 3b;Hypertensive nephropathy;Di Performed By: #### G LULS #### Point of Care testing , Serum or plasma albumin/glob ulin mass ratioOrdered By: Halle Mac on 05-17-2023 Albumin/Globulin [Mass ratio] 1.9 {ratio} [facility] Comment on above: Order Comment: Reaso n for Exam Chronic kidney disease, stage 3b;Hypertensive nephropathy;Di Performed By: #### G LULS #### Point of Care testing , Serum or plasma anion gap de terminationOrdered By: Halle Mac on 05-17-2023 Anion gap [Moles/Vol] 10.8 mmol/L Normal 6.0-15.0 [facility] Comment on above: Order Comment: Reaso n for Exam Chronic kidney disease, stage 3b;Hypertensive nephropathy;Di Performed By: #### G LULS #### Point of Care testing , Sodium [Moles/volume] in Ser um or PlasmaOrdered By: Halle Mac on 05-17-2023 Sodium [Moles/Vol] 142 mmol/L Normal 136-145 [facility] Comment on above: Order Comment: Reaso n for Exam Chronic kidney disease, stage 3b;Hypertensive nephropathy;Di Performed By: #### G LULS #### Point of Care testing , Specific gravity Auto test s trip (U) [Rel density]Ordered By: Halle Mac on 05-17-2023 Specific gravity (U) [Rel density] 1.025 1.001-1.030 [facility] Squamous epithelial cells de tection in urine sediment by light microscopyOrdered By: Halle Mac on 05-17-2023 Epithelial cells.squamous LM Ql (Urine sed) 3-4 [HPF] 0-2 [facility] Transferrin [Mass/volume] in Serum or PlasmaOrdered By: Halle Mac on 05-17-2023 Transferrin [Mass/Vol] 384 mg/dL High 203-362 [facility] Comment on above: Order Comment: Reaso n for Exam Chronic kidney disease, stage 3b;Hypertensive nephropathy;Di Performed By: #### G LULS #### Point of Care testing , Urate [Mass/volume] in Serum or PlasmaOrdered By: Halle Mac on 05-17-2023 Urate [Mass/Vol] 7.3 mg/dL High 2.3-6.6 [facility] Comment on above: Order Comment: Reaso n for Exam Chronic kidney disease, stage 3b;Hypertensive nephropathy;Di Performed By: #### G LULS #### Point of Care testing , Urea nitrogen [Mass/volume] in Serum or PlasmaOrdered By: Halle Mac on 05-17-2023 Urea nitrogen [Mass/Vol] 26 mg/dL High 7-25 [facility] Comment on above: Order Comment: Reaso n for Exam Chronic kidney disease, stage 3b;Hypertensive nephropathy;Di Performed By: #### G LULS #### Point of Care testing , Urine Cultureon 05-17-2023 Bacteria identified Cx Nom (U) 50,000 colonies/ml mixed bacterial skin contaminants 2 Days PERFORMED BY: [place] [id number] PATHOLOGIST DIGITAL COMMENTATOR ARIC BUTLER M.D. Normal [facility] Comment on above: Performed By: #### A DDONUAPLUS #### [address] Urine bacteria detection by automated methodOrdered By: Halle Mac on 05-17-2023 Bacteria Auto Ql (U) None seen None Seen [facility] Urine clarity by refractomet ry automatedOrdered By: Halle Mac on 05-17-2023 Clarity Refractometry automated (U) Cloudy Clear [facility] Urine culture routineOrdered By: Halle Mac on 05-17-2023 Bacteria identified Cx Nom (U) 2 Days [facility] Urine glucose measurement by automated test strip (mass/volume)Ordered By: Halle Mac on 05-17-2023 Glucose Auto test strip (U) [Mass/Vol] Normal mg/dL Normal [facility] Urine hemoglobin detection b y automated test stripOrdered By: Halle Mac on 05-17-2023 Hemoglobin Auto test strip Ql (U) Negative Negative [facility] Urine leukocyte esterase det ection by automated test stripOrdered By: Halle Mac on 05-17-2023 Leukocyte esterase Auto test strip Ql (U) 1+ Negative [facility] Urine pH measurement by auto mated test stripOrdered By: Halle Mac on 05-17-2023 pH (U) 5.0 [pH] Normal 5.0-9.0 [facility] Comment on above: Order Comment: Name Collection Type:: Other Performed By: #### A DDONUAPLUS #### [facility] [address] [place] [address] Urine protein measurement by automated test strip (mass/volume)Ordered By: Halle Mac on 05-17-2023 Protein (U) [Mass/Vol] 30 mg/dL High Negative [facility] Comment on above: Order Comment: Name Collection Type:: Other Performed By: #### A DDONUAPLUS #### [facility] [address] [place] [address] Urine protein/creatinine rat ioOrdered By: Halle Mac on 05-17-2023 Protein/Creatinine (U) [Ratio] TNP [facility] Comment on above: Test not performed Urobilinogen Auto test strip (U) [Mass/Vol]Ordered By: Halle Mac on 05-17-2023 Urobilinogen (U) [Mass/Vol] Normal mg/dL Normal [facility] Valproate [Mass/volume] in S brunilad or PlasmaOrdered By: Fauzia Huffman on 05-17-2023 Valproate [Mass/Vol] 24.0 ug/mL 50.0-100.0 [facility] Comment on above: Last dose: - Valproic Acid (in house)on 0 05-17-2023 Valproic Acid (in house) 24.0 ug/mL Low 50.0-100.0 [facility] Comment on above: Result Comment: Last dose: - PERFORMED BY: [place] [id number] PATHOLOGIST DIGITAL COMMENTATOR ARIC BUTLER M.D. Performed By: #### A DDONUAPLUS #### [address] Vitamin D 25 Hydroxy Totalon 05-17-2023 Vitamin D 25 Hydroxy Total 24.3 ng/mL Low 30-100 [facility] Comment on above: Order Comment: Name Collection Type:: Other Result Comment: AWAIS MIN D STATUS 25(OH)VITAMIN D RANGE (ng/mL) Deficient <20 Insufficient 20 to <30 Sufficient 30 to 100 Reference: Nicole Almonte, Ed LI, et al. Evaluation,treatment, and prevention of vitamin D deficiency; an Endocrine Society clinical practice guideline. JCEM. 2010; 96(7):1911-. PERFORMED BY: [place] [id number] PATHOLOGIST DIGITAL COMMENTATOR ARIC BUTLER M.D. Performed By: #### A DDONUAPLUS #### [address] Vitamin D+Metabolites [Mass/ volume] in Serum or PlasmaOrdered By: Halle Mac on 05-17-2023 Vitamin D+Metabolites [Mass/Vol] 24.3 ng/mL 30-100 [facility] Comment on above: VITAMIN D STATUS 25( [...] sed) None seen [HPF] None Seen [facility] Provider Orderson 05-09-2023 Provider Orders [id number] FF Normal [facility] Office Visiton 03-14-2023 Follow-up visit [id number] Nithin Humphreys 1970 F Date Provider Department Center 03/14/2023 [id number], EHAB BH CARD [facility] No family history on file Level of Service:[id number] OK OFFICE/OUTPATIENT ESTABLISHED MOD MDM 30-39 MIN Normal [facility] BNPon 09-07-2022 Natriuretic peptide B (Bld) [Mass/Vol] 391.0 pg/mL Normal <=900.0 [facility] Comment on above: Performed By: #### L IPID, BMP #### [facility] [address] [place] [address] Dr. Jag Waldrop CBC AUTO DIFFon 09-07-2022 BASO # 0.1 103/ul Normal 0.0-0.1 [facility] Comment on above: Performed By: #### L IPID, BMP #### [facility] [address] [place] [address] Dr. Jag Waldrop Basophils/100 WBC (Bld) 1.4 % Normal 0.2-2.0 [facility] Comment on above: Performed By: #### L IPID, BMP #### [facility] [address] [place] [address] Dr. Jag Waldrop EO # 0.1 103/ul Normal 0.0-0.7 [facility] Comment on above: Performed By: #### L IPID, BMP #### [facility] [address] [place] [address] Dr. Jag Waldrop Eosinophils/100 WBC (Bld) 1.6 % Normal 0.9-7.0 [facility] Comment on above: Performed By: #### L IPID, BMP #### [facility] [address] [place] [address] Dr. Jag Waldrop Erythrocyte distribution width (RBC) [Ratio] 15.0 % Normal 11.0-15.0 [facility] Comment on above: Performed By: #### L IPID, BMP #### [facility] [address] [place] [address] Dr. Jag Waldrop Hematocrit (Bld) [Volume fraction] 37.2 % Normal 36.0-48.0 [facility] Comment on above: Performed By: #### L IPID, BMP #### [facility] [address] [place] [address] Dr. Jag Waldrop Hemoglobin (Bld) [Mass/Vol] 11.6 g/dL Critically low 12.0-16.0 [facility] Comment on above: Performed By: #### L IPID, BMP #### [facility] [address] [place] [address] Dr. Jag Waldrop IG # 0.01 10e3/ul Normal 0.00-0.03 [facility] Comment on above: Performed By: #### L IPID, BMP #### [facility] [address] [place] [address] Dr. Jag Waldrop IG % 0.2 % Normal 0.0-0.5 [facility] Comment on above: Performed By: #### L IPID, BMP #### [facility] [address] [place] [address] Dr. Jag Waldrop LYMPH # 1.9 103/ul Normal 1.2-3.8 [facility] Comment on above: Performed By: #### L IPID, BMP #### [facility] [address] [place] [address] Dr. Jag Waldrop Lymphocytes/100 WBC (Bld) 39.1 % Normal 20.5-60.0 [facility] Comment on above: Performed By: #### L IPID, BMP #### [facility] [address] [place] [address] Dr. Jag Waldrop MANUAL DIFF REQ NO Normal [facility] Comment on above: Performed By: #### L IPID, BMP #### [facility] [address] [place] [address] Dr. Jag Waldrop MCH (RBC) [Entitic mass] 27.5 pg Normal 26.7-34.0 [facility] Comment on above: Performed By: #### L IPID, BMP #### [facility] [address] [place] [address] Dr. Jag Waldrop MCHC (RBC) [Mass/Vol] 31.2 g/dL Normal 29.9-35.2 [facility] Comment on above: Performed By: #### L IPID, BMP #### [facility] [address] [place] [address] Dr. Jag Waldrop MCV (RBC) [Entitic vol] 88.2 fL Normal 81.0-99.0 [facility] Comment on above: Performed By: #### L IPID, BMP #### [facility] [address] [place] [address] Dr. Jag Waldrop MONO # 0.3 103/ul Normal 0.3-0.8 [facility] Comment on above: Performed By: #### L IPID, BMP #### [facility] [address] [place] [address] Dr. Jag Waldrop Monocytes/100 WBC (Bld) 6.5 % Normal 1.7-12.0 [facility] Comment on above: Performed By: #### L IPID, BMP #### [facility] [address] [place] [address] Dr. Jag Waldrop NEUT # 2.5 103/ul Normal 1.4-6.5 [facility] Comment on above: Performed By: #### L IPID, BMP #### [facility] [address] [place] [address] Dr. Jag Waldrop Neutrophils/100 WBC (Bld) 51.2 % Normal 43.0-75.0 [facility] [facility] Comment on above: Performed By: #### L IPID, BMP #### [facility] [address] [place] [address] Dr. Jag Waldrop Platelet mean volume (Bld) [Entitic vol] 10.5 fL Normal 9.5-13.5 [facility] Comment on above: Performed By: #### L IPID, BMP #### [facility] [address] [place] [address] Dr. Jag Waldrop PLT 272 103/ul Normal 150-450 [facility] Comment on above: Performed By: #### L IPID, BMP #### [facility] [address] [place] [address] Dr. Jag Waldrop RBC 4.22 106/ul Normal 4.20-5.40 [facility] Comment on above: Performed By: #### L IPID, BMP #### [facility] [address] [place] [address] Dr. Jag Waldrop WBC 4.9 103/ul Normal 4.0-11.0 [facility] Comment on above: Performed By: #### L IPID, BMP #### [facility] [address] [place] [address] Dr. Jag Waldrop ER URINE PROFILEon 3 Bilirubin Ql (U) Negative Normal NEGATIVE [facility] Comment on above: Performed By: #### E RUR #### [facility] [address] [place] [address] Dr. Jag Waldrop Clarity (U) CLEAR Normal CLEAR [facility] Comment on above: Performed By: #### E RUR #### [facility] [address] [place] [address] Dr. Jag Waldrop Color (U) LT. YELLOW Normal YELLOW [facility] Comment on above: Performed By: #### E RUR #### [facility] [address] [place] [address] Dr. Jag Waldrop ERUAHD A micrscopic examina tion will be performed if indicated. Normal [facility] Comment on above: Performed By: #### E RUR #### [facility] [address] [place] [address] Dr. Jag Waldrop Glucose Ql (U) Negative Normal NEGATIVE [facility] Comment on above: Performed By: #### E RUR #### [facility] [address] [place] [address] Dr. Jag Waldrop Hemoglobin Ql (U) Negative Normal NEGATIVE [facility] Comment on above: Performed By: #### E RUR #### [facility] [address] [place] [address] Dr. Jag Waldrop Ketones Ql (U) Negative Normal NEGATIVE [facility] Comment on above: Performed By: #### E RUR #### [facility] [address] [place] [address] Dr. Jag Waldrop LEUKOCYTES Negative Normal NEGATIVE [facility] Comment on above: Performed By: #### E RUR #### [facility] [address] [place] [address] Dr. Jag Waldrop Nitrite Ql (U) Negative Normal NEGATIVE [facility] Comment on above: Performed By: #### E RUR #### [facility] [address] [place] [address] Dr. Jag Waldrop pH (U) 7.0 [pH] Normal 5-9 [facility] Comment on above: Performed By: #### E RUR #### [facility] [address] [place] [address] Dr. Jag Waldrop SPEC GRAVITY 1.010 Normal 1.005-<=1.[address] [place] [address] Comment on above: Performed By: #### E RUR #### [facility] [address] [place] [address] Dr. Jag Waldrop UA PROTEIN Negative Normal NEGATIVE/ TRACE [facility] Comment on above: Performed By: #### E RUR #### [facility] [address] [place] [address] Dr. Jag Waldrop UR MICRO IND NOT INDICATED Normal [facility] Comment on above: Performed By: #### E RUR #### [facility] [address] [place] [address] Dr. Jag Waldrop Urobilinogen Qn (U) 0.2 {Chris'U}/dL Normal 0.2 - 1. 0 [facility] Comment on above: Performed By: #### E RUR #### [facility] [address] [place] [address] Dr. Jag Waldrop PROF 14(COMP METB)on 023 Albumin [Mass/Vol] 3.9 g/dL Normal 3.4-5.0 [facility] Comment on above: Performed By: #### L IPID, BMP #### [facility] [address] [address] [address] Jag Waldrop Albumin/Globulin [Mass ratio] 1.2 {ratio} Normal [facility] Comment on above: Performed By: #### L IPID, BMP #### [facility] [address] [address] [address] Jag Waldrop ALP [Catalytic activity/Vol] 95 U/L Normal 46-116 [facility] Comment on above: Performed By: #### L IPID, BMP #### [facility] [address] [address] [address] Jag Waldrop ALT [Catalytic activity/Vol] 31 U/L Normal 14-59 [facility] Comment on above: Performed By: #### L IPID, BMP #### [facility] [address] [place] [address] Dr. Jag Waldrop Anion gap [Moles/Vol] 12.7 mmol/L Normal [facility] Comment on above: Performed By: #### L IPID, BMP #### [facility] [address] [place] [address] Dr. Jag Waldrop AST [Catalytic activity/Vol] 34 U/L Normal 15-37 [facility] Comment on above: Performed By: #### L IPID, BMP #### [facility] [address] [place] [address] Dr. Jag Waldrop Bilirubin [Mass/Vol] 0.4 mg/dL Normal 0.2-1.0 [facility] Comment on above: Performed By: #### L IPID, BMP #### [facility] [address] [address] [address] Jag Waldrop Calcium [Mass/Vol] 9.1 mg/dL Normal 8.5-10.1 [facility] Comment on above: Performed By: #### L IPID, BMP #### [facility] [address] [address] [address] Jag Waldrop Chloride [Moles/Vol] 107 mmol/L Normal 98-107 [facility] Comment on above: Performed By: #### L IPID, BMP #### [facility] [address] [address] [address] Jag Waldrop CO2 [Moles/Vol] 28.1 mmol/L Normal 21.0-32.0 [facility] Comment on above: Performed By: #### L IPID, BMP #### [facility] [address] [place] [address] Dr. Jag Waldrop Creatinine [Mass/Vol] 1.18 mg/dL Critically high 0.55-1.02 [facility] Comment on above: Performed By: #### L IPID, BMP #### [facility] [address] [place] [address] Dr. Jag Waldrop EGFR-AF ECUADOREAN 59 mL/min/1.73m2 Critically low >=60 [facility] Comment on above: Performed By: #### L IPID, BMP #### [facility] [address] [place] [address] Dr. Jag Waldrop EGFR-NON AF ECUADOREAN 48 mL/min/1.73m2 Critically low >=60 [facility] Comment on above: Performed By: #### L IPID, BMP #### [facility] [address] [place] [address] Dr. Jag Waldrop Globulin (S) [Mass/Vol] 3.3 g/dL Normal [facility] Comment on above: Performed By: #### L IPID, BMP #### [facility] [address] [place] [address] Dr. Jag Waldrop Glucose [Mass/Vol] 111 mg/dL Critically high 74-106 [facility] Comment on above: Performed By: #### L IPID, BMP #### [facility] [address] [place] [address] Dr. Jag Waldrop Potassium [Moles/Vol] 3.8 mmol/L Normal 3.5-5.1 [facility] Comment on above: Performed By: #### L IPID, BMP #### [facility] [address] [place] [address] Dr. Jag Waldrop Protein [Mass/Vol] 7.2 g/dL Normal 6.4-8.2 [facility] Comment on above: Performed By: #### L IPID, BMP #### [facility] [address] [place] [address] Dr. Jag Waldrop Sodium [Moles/Vol] 144 mmol/L Normal 136-145 [facility] Comment on above: Performed By: #### L IPID, BMP #### [facility] [address] [place] [address] Dr. Jag Waldrop Urea nitrogen [Mass/Vol] 19.0 mg/dL Critically high 7.0-18.0 [facility] Comment on above: Performed By: #### L IPID, BMP #### [facility] [address] [place] [address] Dr. Jag Waldrop Urea nitrogen/Creatinine [Mass ratio] 16.1 mg/mg Normal [facility] Comment on above: Performed By: #### L IPID, BMP #### [facility] [address] [place] [address] Dr. Jag Waldrop PROTIMEon 09-07-2022 INR Coag (PPP) [Relative time] {INR} Normal [facility] Comment on above: Performed By: #### P T #### [facility] [address] [place] [address] Dr. Jag Waldrop INR GUIDELINES SEE BELOW Normal [facility] Comment on above: Result Comment: MARTIN RED INR: 2.0 - 3.0 CONDITIONS NOT LISTED BELOW 2.5 - 3.5 FOR PROSTHETIC HEART VALVE REPLACEMENT 2.5 - 3.5 RECURRENT THROMBOSIS Performed By: #### P T #### [facility] [address] [place] [address] Dr. Jag Waldrop PT Coag (PPP) [Time] 9.7 s Normal 9.0-11.6 [facility] Comment on above: Performed By: #### P T #### [facility] [address] [place] [address] Dr. Jag Waldrop TROPONIN, HIGH SENSITIVITYon 09-07-2022 HSTROP 17.8 pg/mL Normal 4.0-51.3 [facility] Comment on above: Result Comment: CUT- OFF POINTS HAVE BEEN ESTABLISHED BASED ON THE FOURTH UNIVERSAL DEFINITIONS OF MYOCARDIAL INFARCTION. THE UPPER REFERENCE LIMIT (URL) OF TROPONIN, DEFINED THE 99TH PERCENTILE OF cTnI DISTRIBUTION IN A REFERENCE POPULATION, HAS BEEN CONFIRMED THE DECISION THRESHOLD FOR GA DIAGNOSIS. Performed By: #### L IPID, BMP #### [facility] [address] [address] [address] Jag Waldrop XR CHEST 2 Von [...] by: WAN JENKINS Date: 2022-09-07 16:47 Normal [facility] GLYCOHEMOGLOBIN A1Con 2022 ADA RECOMMENDATION SEE BELOW Normal [facility] Comment on above: Result Comment: ADA RECOMMENDED LIMIT 4.0 - 6.0 ADA THERAPEUTIC TARGET < 7.0 ACTION SUGGESTED > 7.0 Performed By: #### L IPID, BMP #### [facility] [address] [address] [address] Jag Waldrop Glucose [Mass/Vol] 120 mg/dL Normal [facility] Comment on above: Performed By: #### L IPID, BMP #### [facility] [address] [address] [address] Jag Waldrop HbA1c (Bld) [Mass fraction] 5.8 % Normal 4.5-6.2 [facility] Comment on above: Performed By: #### L IPID, BMP #### [facility] [address] [address] [address] Jag Waldrop PROF CHEM 8 (BAS METB)on Anion gap [Moles/Vol] 13.2 mmol/L Normal [facility] Comment on above: Performed By: #### B MP #### [facility] [address] [place] [address] Dr. Jag Waldrop Calcium [Mass/Vol] 9.0 mg/dL Normal 8.5-10.1 [facility] Comment on above: Performed By: #### B MP #### [facility] [address] [address] [address] Jag Waldrop Chloride [Moles/Vol] 107 mmol/L Normal 98-107 [facility] Comment on above: Performed By: #### B MP #### [facility] [address] [address] [address] Jag Waldrop CO2 [Moles/Vol] 26.3 mmol/L Normal 21.0-32.0 [facility] Comment on above: Performed By: #### B MP #### [facility] [address] [address] [address] Jag Waldrop Creatinine [Mass/Vol] 1.03 mg/dL Critically high 0.55-1.02 [facility] Comment on above: Performed By: #### B MP #### [facility] [address] [address] [address] Jag Waldrop EGFR-AF ECUADOREAN >60 Normal >=60 [facility] Comment on above: Performed By: #### B MP #### [facility] [address] [address] [address] Jag Waldrop EGFR-NON AF ECUADOREAN 56 mL/min/1.73m2 Critically low >=60 [facility] Comment on above: Performed By: #### B MP #### [facility] [address] [address] [address] Jag Waldrop Glucose [Mass/Vol] 149 mg/dL Critically high 74-106 [facility] Comment on above: Performed By: #### B MP #### [facility] [address] [address] [address] Jag Waldrop Potassium [Moles/Vol] 4.5 mmol/L Normal 3.5-5.1 [facility] Comment on above: Performed By: #### B MP #### [facility] [address] [address] [address] Jag Waldrop Sodium [Moles/Vol] 142 mmol/L Normal 136-145 [facility] Comment on above: Performed By: #### B MP #### [facility] [address] [place], [place] [address] Dr. Jag Waldrop Urea nitrogen [Mass/Vol] 22.0 mg/dL Critically high 7.0-18.0 [facility] Comment on above: Performed By: #### B MP #### [facility] [address] [place], [place] [address] Dr. Jag Waldrop Urea nitrogen/Creatinine [Mass ratio] 21.4 mg/mg Normal [facility] Comment on above: Performed By: #### B MP #### [facility] [address] [place], [place] [address] ABD/PELVIS WO CONon [...] NATHAN COLE Date: 2022-05-29 22:50 Normal [facility] US KVNG DOP LEG RTon [...] LUZ COELLO Date: 2022-05-29 22:42 Normal [facility] CBC AUTO DIFFon 05-29-2022 BASO # 0.1 103/ul Normal 0.0-0.1 [facility] Comment on above: Performed By: #### L IPID, BMP #### [facility] [address] [address] [address] Jag Waldrop Basophils/100 WBC (Bld) 0.7 % Normal 0.2-2.0 [facility] Comment on above: Performed By: #### L IPID, BMP #### [facility] [address] [address] [address] Jag Waldrop EO # 0.1 103/ul Normal 0.0-0.7 [facility] Comment on above: Performed By: #### L IPID, BMP #### [facility] [address] [address] [address] Jag Waldrop Eosinophils/100 WBC (Bld) 1.5 % Normal 0.9-7.0 [facility] Comment on above: Performed By: #### L IPID, BMP #### [facility] [address] [address] [address] Jag Waldrop Erythrocyte distribution width (RBC) [Ratio] 13.9 % Normal 11.0-15.0 [facility] Comment on above: Performed By: #### L IPID, BMP #### [facility] [address] [place] [address] Dr. Jag Waldrop Hematocrit (Bld) [Volume fraction] 34.2 % Critically low 36.0-48.0 [facility] Comment on above: Performed By: #### L IPID, BMP #### [facility] [address] [place] [address] Dr. Jag Waldrop Hemoglobin (Bld) [Mass/Vol] 10.9 g/dL Critically low 12.0-16.0 [facility] Comment on above: Performed By: #### L IPID, BMP #### [facility] [address] [place] [address] Dr. Jag Waldrop IG # 0.02 10e3/ul Normal 0.00-0.03 [facility] Comment on above: Performed By: #### L IPID, BMP #### [facility] [address] [place] [address] Dr. Jag Waldrop IG % 0.2 % Normal 0.0-0.5 [facility] Comment on above: Performed By: #### L IPID, BMP #### [facility] [address] [place] [address] Dr. Jag Waldrop LYMPH # 2.5 103/ul Normal 1.2-3.8 [facility] Comment on above: Performed By: #### L IPID, BMP #### [facility] [address] [place] [address] Dr. Jag Waldrop Lymphocytes/100 WBC (Bld) 30.4 % Normal 20.5-60.0 [facility] Comment on above: Performed By: #### L IPID, BMP #### [facility] [address] [place] [address] Dr. Jag Waldrop MANUAL DIFF REQ NO Normal [facility] Comment on above: Performed By: #### L IPID, BMP #### [facility] [address] [place] [address] Dr. Jag Waldrop MCH (RBC) [Entitic mass] 27.1 pg Normal 26.7-34.0 [facility] Comment on above: Performed By: #### L IPID, BMP #### [facility] [address] [place] [address] Dr. Jag Waldrop MCHC (RBC) [Mass/Vol] 31.9 g/dL Normal 29.9-35.2 [facility] Comment on above: Performed By: #### L IPID, BMP #### [facility] [address] [place] [address] Dr. Jag Waldrop MCV (RBC) [Entitic vol] 85.1 fL Normal 81.0-99.0 [facility] Comment on above: Performed By: #### L IPID, BMP #### [facility] [address] [place] [address] Dr. Jag Waldrop MONO # 0.5 103/ul Normal 0.3-0.8 [facility] Comment on above: Performed By: #### L IPID, BMP #### [facility] [address] [place] [address] Dr. Jag Waldrop Monocytes/100 WBC (Bld) 6.7 % Normal 1.7-12.0 [facility] Comment on above: Performed By: #### L IPID, BMP #### [facility] [address] [place] [address] Dr. Jag Waldrop NEUT # 4.9 103/ul Normal 1.4-6.5 [facility] Comment on above: Performed By: #### L IPID, BMP #### [facility] [address] [place] [address] Dr. Jag Waldrop Neutrophils/100 WBC (Bld) 60.5 % Normal 43.0-75.0 [facility] Comment on above: Performed By: #### L IPID, BMP #### [facility] [address] [place] [address] Dr. Jag Waldrop Platelet mean volume (Bld) [Entitic vol] 10.3 fL Normal 9.5-13.5 [facility] Comment on above: Performed By: #### L IPID, BMP #### [facility] [address] [place] [address] Dr. Jag Waldrop PLT 256 103/ul Normal 150-450 [facility] Comment on above: Performed By: #### L IPID, BMP #### [facility] [address] [place] [address] Dr. Jag Waldrop RBC 4.02 106/ul Critically low 4.20-5.40 [facility] Comment on above: Performed By: #### L IPID, BMP #### [facility] [address] [place] [address] Dr. Jag Waldrop WBC 8.1 103/ul Normal 4.0-11.0 [facility] Comment on above: Performed By: #### L IPID, BMP #### [facility] [address] [place] [address] Dr. Jag Waldrop ER URINE PROFILEon 3 Bilirubin Ql (U) Negative Normal NEGATIVE [facility] Comment on above: Performed By: #### L IPID, BMP #### [facility] [address] [place] [address] Dr. Jag Waldrop Clarity (U) CLEAR Normal CLEAR [facility] Comment on above: Performed By: #### L IPID, BMP #### [facility] [address] [place] [address] Dr. Jag Waldrop Color (U) YELLOW Normal YELLOW [facility] Comment on above: Performed By: #### L IPID, BMP #### [facility] [address] [place] [address] Dr. Jag Waldrop ERULIBERTYD A micrscopic examina tion will be performed if indicated. Normal [facility] Comment on above: Performed By: #### L IPID, BMP #### [facility] [address] [place] [address] Dr. Jag Waldrop Glucose Ql (U) Negative Normal NEGATIVE [facility] Comment on above: Performed By: #### L IPID, BMP #### [facility] [address] [place] [address] Dr. Jag Waldrop Hemoglobin Ql (U) Negative Normal NEGATIVE [facility] Comment on above: Performed By: #### L IPID, BMP #### [facility] [address] [place] [address] Dr. Jag Waldrop Ketones Ql (U) 15 mg/dl Abnormal NEGATIVE [facility] Comment on above: Performed By: #### L IPID, BMP #### [facility] [address] [place] [address] Dr. Jag Waldrop LEUKOCYTES TRACE Abnormal NEGATIVE [facility] Comment on above: Performed By: #### L IPID, BMP #### [facility] [address] [place] [address] Dr. Jag Waldrop Nitrite Ql (U) Negative Normal NEGATIVE [facility] Comment on above: Performed By: #### L IPID, BMP #### [facility] [address] [place] [address] Dr. Jag Waldrop pH (U) 5.5 [pH] Normal 5-9 [facility] Comment on above: Performed By: #### L IPID, BMP #### [facility] [address] [place] [address] Dr. Jag Waldrop SPEC GRAVITY 1.020 Normal 1.005-<=1.0 25 [facility] Comment on above: Performed By: #### L IPID, BMP #### [facility] [address] [place] [address] Dr. Jag Waldrop UA PROTEIN Negative Normal NEGATIVE/ TRACE [facility] Comment on above: Performed By: #### L IPID, BMP #### [facility] [address] [place] [address] Dr. Jag Waldrop UR MICRO IND INDICATED Normal [facility] Comment on above: Performed By: #### L IPID, BMP #### [facility] [address] [place] [address] Dr. Jag Waldrop Urobilinogen Qn (U) 0.2 {Chris'U}/dL Normal 0.2 - 1. 0 [facility] Comment on above: Performed By: #### L IPID, BMP #### [facility] [address] [place] [address] Dr. Jag Waldrop PROF CHEM 8 (BAS METB)on Anion gap [Moles/Vol] 14.2 mmol/L Normal [facility] Comment on above: Performed By: #### B MP #### [facility] [address] [address] [address] Jag Waldrop Calcium [Mass/Vol] 9.1 mg/dL Normal 8.5-10.1 [facility] Comment on above: Performed By: #### B MP #### [facility] [address] [address] [address] Jag Waldrop Chloride [Moles/Vol] 106 mmol/L Normal 98-107 [facility] Comment on above: Performed By: #### B MP #### [facility] [address] [address] [address] Jag Waldrop CO2 [Moles/Vol] 23.5 mmol/L Normal 21.0-32.0 [facility] Comment on above: Performed By: #### B MP #### [facility] [address] [address] [address] Jag Waldrop Creatinine [Mass/Vol] 1.29 mg/dL Critically high 0.55-1.02 [facility] Comment on above: Performed By: #### B MP #### [facility] [address] [address] [address] Jag Waldrop EGFR-AF ECUADOREAN 53 mL/min/1.73m2 Critically low >=60 [facility] Comment on above: Performed By: #### B MP #### [facility] [address] [address] [address] Jag Waldrop EGFR-NON AF ECUADOREAN 44 mL/min/1.73m2 Critically low >=60 [facility] Comment on above: Performed By: #### B MP #### [facility] [address] [address] [address] Jag Waldrop Glucose [Mass/Vol] 93 mg/dL Normal 74-106 [facility] Comment on above: Performed By: #### B MP #### [facility] [address] [address] [address] Jag Waldrop Potassium [Moles/Vol] 3.7 mmol/L Normal 3.5-5.1 [facility] Comment on above: Performed By: #### B MP #### [facility] [address] [place] [address] Dr. Jag Waldrop Sodium [Moles/Vol] 140 mmol/L Normal 136-145 [facility] Comment on above: Performed By: #### B MP #### [facility] [address] [place] [address] Dr. Jag Waldrop Urea nitrogen [Mass/Vol] 24.0 mg/dL Critically high 7.0-18.0 [facility] Comment on above: Performed By: #### B MP #### [facility] [address] [place] [address] Dr. Jag Waldrop Urea nitrogen/Creatinine [Mass ratio] 18.6 mg/mg Normal [facility] Comment on above: Performed By: #### B MP #### [facility] [address] [place] [address] Dr. Jag Waldrop URINE MICROSCOPIC ONLYon BACTERIA TRACE Abnormal NONE SEEN [facility] Comment on above: Performed By: #### L IPID, BMP #### [facility] [address] [place] [address] Dr. Jag Waldrop Bacteria identified Cx Nom (U) NOT INDICATED Normal [facility] Comment on above: Performed By: #### L IPID, BMP #### [facility] [address] [place] [address] Dr. Jag Waldrop CAST NONE SEEN Normal NONE SEEN [facility] Comment on above: Performed By: #### L IPID, BMP #### [facility] [address] [place] [address] Dr. Jag Waldrop Crystals LM Nom (Urine sed) NONE SEEN Normal NONE SEEN [facility] Comment on above: Performed By: #### L IPID, BMP #### [facility] [address] [place] [address] Dr. Jag Waldrop Epithelial cells LM Ql (Urine sed) RARE Normal NONE SEEN /RARE [facility] Comment on above: Performed By: #### L IPID, BMP #### [facility] [address] [address] [address] Jag Waldrop MUCOUS NONE SEEN Normal NONE SEEN [facility] Comment on above: Performed By: #### L IPID, BMP #### [facility] [address] [address] [address] Jag Waldrop RBC 5-10 Abnormal 0-2 [facility] Comment on above: Performed By: #### L IPID, BMP #### [facility] [address] [address] [address] Jag Waldrop WBC 0-2 Abnormal NONE SEEN [facility] Comment on above: Performed By: #### L IPID, BMP #### [facility] [address] [address] [address] Jag Waldrop MG MAMM SCREEN 3D ORESTES CADon 03-29-2022 MG MAMM SCREEN 3D ORESTES CAD Patient: SHERLY HUMPHREYS Exam Date: 03/29/2022 : 1970 Gender:F Ordering : [facility] Admission #: [id number] Family : Order #: [id number] CLICK HERE TO VIEW EXAM RADIOLOGY REPORT [...] head/neck cancer at age 73. LOCATION: [facility] BREAST COMPOSITION: Scattered areas fibroglandular density. FINDINGS: [...] Lobato M.D. on 03/29/2022 at 15:31 Normal [facility] MRI LSPINE WO W CONon 2021 [...] KATHY LOBATO Date: 2022-03-23 11:26 Normal [facility] MRI TSPINE WO W CONon [...] KATHY LOBATO Date: 2022-03-23 12:50 Normal [facility] PROF CHEM 8 (BAS METB)on Anion gap [Moles/Vol] 11.8 mmol/L Normal [facility] Comment on above: Performed By: #### P OCGLUC #### [facility] [address] [address] [address] Jag Waldrop Calcium [Mass/Vol] 9.0 mg/dL Normal 8.5-10.1 [facility] Comment on above: Performed By: #### P OCGLUC #### [facility] [address] [address] [address] Jag Waldrop Chloride [Moles/Vol] 107 mmol/L Normal 98-107 [facility] Comment on above: Performed By: #### P OCGLUC #### [facility] [address] [address] [address] Jag Waldrop CO2 [Moles/Vol] 30.2 mmol/L Normal 21.0-32.0 [facility] Comment on above: Performed By: #### P OCGLUC #### [facility] [address] [address] [address] Jag Waldrop Creatinine [Mass/Vol] 1.32 mg/dL Critically high 0.55-1.02 [facility] Comment on above: Performed By: #### P OCGLUC #### [facility] [address] [address] [address] Jag Waldrop EGFR-AF ECUADOREAN 51 mL/min/1.73m2 Critically low >=60 [facility] Comment on above: Performed By: #### P OCGLUC #### [facility] [address] [address] [address] Jag Waldrop EGFR-NON AF ECUADOREAN 42 mL/min/1.73m2 Critically low >=60 [facility] Comment on above: Performed By: #### P OCGLUC #### [facility] [address] [address] [address] Jag Waldrop Glucose [Mass/Vol] 117 mg/dL Critically high 74-106 [facility] Comment on above: Performed By: #### P OCGLUC #### [facility] [address] [address] [address] Jag Waldrop Potassium [Moles/Vol] 4.0 mmol/L Normal 3.5-5.1 [facility] Comment on above: Performed By: #### P OCGLUC #### [facility] [address] [address] [address] Jag Waldrop Sodium [Moles/Vol] 145 mmol/L Normal 136-145 [facility] Comment on above: Performed By: #### P OCGLUC #### [facility] [address] [address] [address] Jag Waldrop Urea nitrogen [Mass/Vol] 23.0 mg/dL Critically high 7.0-18.0 [facility] Comment on above: Performed By: #### P OCGLUC #### [facility] [address] [address] [address] Jag Waldrop Urea nitrogen/Creatinine [Mass ratio] 17.4 mg/mg Normal [facility] Comment on above: Performed By: #### P OCGLUC #### [facility] [address] [address] [address] Jag Waldrop CBC AUTO DIFFon 02-19-2022 BASO # 0.1 103/ul Normal 0.0-0.1 [facility] Comment on above: Performed By: #### P OCGLUC #### [facility] [address] [address] [address] Jag Waldrop Basophils/100 WBC (Bld) 1.0 % Normal 0.2-2.0 [facility] Comment on above: Performed By: #### P OCGLUC #### [facility] [address] [place] [address] Dr. Jag Waldrop EO # 0.1 103/ul Normal 0.0-0.7 [facility] Comment on above: Performed By: #### P OCGLUC #### [facility] [address] [place] [address] Dr. Jag Waldrop Eosinophils/100 WBC (Bld) 1.9 % Normal 0.9-7.0 [facility] Comment on above: Performed By: #### P OCGLUC #### [facility] [address] [place] [address] Dr. Jag Waldrop Erythrocyte distribution width (RBC) [Ratio] 13.2 % Normal 11.0-15.0 [facility] Comment on above: Performed By: #### P OCGLUC #### [facility] [address] [place] [address] Dr. Jag Waldrop Hematocrit (Bld) [Volume fraction] 36.7 % Normal 36.0-48.0 [facility] Comment on above: Performed By: #### P OCGLUC #### [facility] [address] [place] [address] Dr. Jag Waldrop Hemoglobin (Bld) [Mass/Vol] 11.4 g/dL Critically low 12.0-16.0 [facility] Comment on above: Performed By: #### P OCGLUC #### [facility] [address] [place] [address] Dr. Jag Waldrop IG # 0.03 10e3/ul Normal 0.00-0.03 [facility] Comment on above: Performed By: #### P OCGLUC #### [facility] [address] [place] [address] Dr. Jag Waldrop IG % 0.5 % Normal 0.0-0.5 [facility] Comment on above: Performed By: #### P OCGLUC #### [facility] [address] [place] [address] Dr. Jag Waldrop LYMPH # 2.1 103/ul Normal 1.2-3.8 [facility] Comment on above: Performed By: #### P OCGLUC #### [facility] [address] [place] [address] Dr. Jag Waldrop Lymphocytes/100 WBC (Bld) 34.1 % Normal 20.5-60.0 [facility] Comment on above: Performed By: #### P OCGLUC #### [facility] [address] [place] [address] Dr. Jag Waldrop MANUAL DIFF REQ NO Normal [facility] Comment on above: Performed By: #### P OCGLUC #### [facility] [address] [place] [address] Dr. Jag Waldrop MCH (RBC) [Entitic mass] 28.4 pg Normal 26.7-34.0 [facility] Comment on above: Performed By: #### P OCGLUC #### [facility] [address] [place] [address] Dr. Jag Waldrop MCHC (RBC) [Mass/Vol] 31.1 g/dL Normal 29.9-35.2 [facility] Comment on above: Performed By: #### P OCGLUC #### [facility] [address] [place] [address] Dr. Jag Waldrop MCV (RBC) [Entitic vol] 91.5 fL Normal 81.0-99.0 [facility] Comment on above: Performed By: #### P OCGLUC #### [facility] [address] [place] [address] Dr. Jag Waldrop MONO # 0.5 103/ul Normal 0.3-0.8 [facility] Comment on above: Performed By: #### P OCGLUC #### [facility] [address] [place] [address] Dr. Jag Waldrop Monocytes/100 WBC (Bld) 8.4 % Normal 1.7-12.0 [facility] Comment on above: Performed By: #### P OCGLUC #### [facility] [address] [place] [address] Dr. Jag Waldrop NEUT # 3.3 103/ul Normal 1.4-6.5 [facility] Comment on above: Performed By: #### P OCGLUC #### [facility] [address] [address] [address] Jag Waldrop Neutrophils/100 WBC (Bld) 54.1 % Normal 43.0-75.0 [facility] Comment on above: Performed By: #### P OCGLUC #### [facility] [address] [address] [address] Jag Waldrop Platelet mean volume (Bld) [Entitic vol] 10.6 fL Normal 9.5-13.5 [facility] Comment on above: Performed By: #### P OCGLUC #### [facility] [address] [address] [address] Jag Waldrop PLT 294 103/ul Normal 150-450 [facility] Comment on above: Performed By: #### P OCGLUC #### [facility] [address] [address] [address] Jag Waldrop RBC 4.01 106/ul Critically low 4.20-5.40 [facility] Comment on above: Performed By: #### P OCGLUC #### [facility] [address] [address] [address] Jag Waldrop WBC 6.2 103/ul Normal 4.0-11.0 [facility] Comment on above: Performed By: #### P OCGLUC #### [facility] [address] [place] [address] Dr. Jag Waldrop CRPon 02-19-2022 CRP [Mass/Vol] mg/L Normal <=1.0 [facility] Comment on above: Performed By: #### E RUR #### [facility] [address] [address] [address] TSPINE WO CONon [...] ALEX AVINA Date: 2022-02-19 19:25 Normal [facility] ER URINE PROFILEon 2 Bilirubin Ql (U) Negative Normal NEGATIVE [facility] Comment on above: Performed By: #### P OCGLUC #### [facility] [address] [place] [address] Dr. Jag Waldrop Clarity (U) CLEAR Normal CLEAR [facility] Comment on above: Performed By: #### P OCGLUC #### [facility] [address] [place] [address] Dr. Jag Waldrop Color (U) LT. YELLOW Normal YELLOW [facility] Comment on above: Performed By: #### P OCGLUC #### [facility] [address] [place] [address] Dr. Jag Waldrop ERUAHD A micrscopic examina tion will be performed if indicated. Normal [facility] Comment on above: Performed By: #### P OCGLUC #### [facility] [address] [place] [address] Dr. Jag Waldrop Glucose Ql (U) Negative Normal NEGATIVE [facility] Comment on above: Performed By: #### P OCGLUC #### [facility] [address] [place] [address] Dr. Jag Waldrop Hemoglobin Ql (U) Negative Normal NEGATIVE [facility] Comment on above: Performed By: #### P OCGLUC #### [facility] [address] [place], [place] [id number] Dr. Jag Waldrop Ketones Ql (U) Negative Normal NEGATIVE [facility] Comment on above: Performed By: #### P OCGLUC #### [facility] [address] [place] [address] Dr. Jag Waldrop LEUKOCYTES Negative Normal NEGATIVE [facility] Comment on above: Performed By: #### P OCGLUC #### [facility] [address] [place] [address] Dr. Jag Waldrop Nitrite Ql (U) Negative Normal NEGATIVE [facility] Comment on above: Performed By: #### P OCGLUC #### [facility] [address] [place] [address] Dr. Jag Waldrop pH (U) 5.5 [pH] Normal 5-9 [facility] Comment on above: Performed By: #### P OCGLUC #### [facility] [address] [place] [address] Dr. Jag Waldrop SPEC GRAVITY 1.020 Normal 1.005-<=1.[address] [place] [address] Comment on above: Performed By: #### P OCGLUC #### [facility] [address] [place] [address] Dr. Jag Waldrop UA PROTEIN Negative Normal NEGATIVE/ TRACE [facility] Comment on above: Performed By: #### P OCGLUC #### [facility] [address] [place] [address] Dr. Jag Waldrop UR MICRO IND NOT INDICATED Normal [facility] Comment on above: Performed By: #### P OCGLUC #### [facility] [address] [place] [address] Dr. Jag Waldrop Urobilinogen Qn (U) 0.2 {Chris'U}/dL Normal 0.2 - 1. 0 [facility] Comment on above: Performed By: #### P OCGLUC #### [facility] [address] [place] [address] Dr. Jag Waldrop PROF CHEM 8 (BAS METB)on Anion gap [Moles/Vol] 10.8 mmol/L Normal [facility] Comment on above: Performed By: #### E RUR #### [facility] [address] [address] [address] Jag Waldrop Calcium [Mass/Vol] 9.0 mg/dL Normal 8.5-10.1 [facility] Comment on above: Performed By: #### E RUR #### [facility] [address] [address] [address] Jag Waldrop Chloride [Moles/Vol] 106 mmol/L Normal 98-107 [facility] Comment on above: Performed By: #### E RUR #### [facility] [address] [address] [address] Jag Waldrop CO2 [Moles/Vol] 28.1 mmol/L Normal 21.0-32.0 [facility] Comment on above: Performed By: #### E RUR #### [facility] [address] [place] [address] Dr. Jag Waldrop Creatinine [Mass/Vol] 1.06 mg/dL Critically high 0.55-1.02 [facility] Comment on above: Performed By: #### E RUR #### [facility] [address] [place] [address] Dr. Jag Waldrop EGFR-AF ECUADOREAN >60 Normal >=60 [facility] Comment on above: Performed By: #### E RUR #### [facility] [address] [place] [address] Dr. Jag Waldrop EGFR-NON AF ECUADOREAN 55 mL/min/1.73m2 Critically low >=60 [facility] Comment on above: Performed By: #### E RUR #### [facility] [address] [place] [address] Dr. Jag Waldrop Glucose [Mass/Vol] 89 mg/dL Normal 74-106 [facility] Comment on above: Performed By: #### E RUR #### [facility] [address] [place] [address] Dr. Jag Waldrop Potassium [Moles/Vol] 3.9 mmol/L Normal 3.5-5.1 [facility] Comment on above: Performed By: #### E RUR #### [facility] [address] [address] [address] Jag Waldrop Sodium [Moles/Vol] 141 mmol/L Normal 136-145 [facility] Comment on above: Performed By: #### E RUR #### [facility] [address] [address] [address] Jag Waldrop Urea nitrogen [Mass/Vol] 19.0 mg/dL Critically high 7.0-18.0 [facility] Comment on above: Performed By: #### E RUR #### [facility] [address] [address] [address] Jag Waldrop Urea nitrogen/Creatinine [Mass ratio] 17.9 mg/mg Normal [facility] Comment on above: Performed By: #### E RUR #### [facility] [address] [place] [address] Dr. Jag Waldrop SED RATE [facility] 2021 SED RATE 19 mm/hr Normal <=30 [facility] Comment on above: Performed By: #### L IPID, BMP #### [facility] [address] [place] [address] Dr. Jag Waldrop PROF CHEM 8 (BAS METB)on Anion gap [Moles/Vol] 17.3 mmol/L Normal [facility] Comment on above: Performed By: #### L IPID, BMP #### [facility] [address] [place] [address] Dr. Jag Waldrop Calcium [Mass/Vol] 9.2 mg/dL Normal 8.5-10.1 [facility] Comment on above: Performed By: #### L IPID, BMP #### [facility] [address] [place] [address] Dr. Jag Waldrop Chloride [Moles/Vol] 108 mmol/L Critically high 98-107 [facility] Comment on above: Performed By: #### L IPID, BMP #### [facility] [address] [place] [address] Dr. Jag Waldrop CO2 [Moles/Vol] 20.0 mmol/L Critically low 21.0-32.0 [facility] Comment on above: Performed By: #### L IPID, BMP #### [facility] [address] [place] [address] Dr. Jag Waldrop Creatinine [Mass/Vol] 1.40 mg/dL Critically high 0.55-1.02 [facility] Comment on above: Performed By: #### L IPID, BMP #### [facility] [address] [place] [address] Dr. Jag Waldrop EGFR-AF ECUADOREAN 48 mL/min/1.73m2 Critically low >=60 [facility] Comment on above: Performed By: #### L IPID, BMP #### [facility] [address] [place] [address] Dr. Jag Waldrop EGFR-NON AF ECUADOREAN 40 mL/min/1.73m2 Critically low >=60 [facility] Comment on above: Performed By: #### L IPID, BMP #### [facility] [address] [place] [address] Dr. Jag Waldrop Glucose [Mass/Vol] 126 mg/dL Critically high 74-106 [facility] Comment on above: Performed By: #### L IPID, BMP #### [facility] [address] [place] [address] Dr. Jag Waldrop Potassium [Moles/Vol] 5.3 mmol/L Critically high 3.5-5.1 [facility] Comment on above: Performed By: #### L IPID, BMP #### [facility] [address] [place] [address] Dr. Jag Waldrop Sodium [Moles/Vol] 140 mmol/L Normal 136-145 [facility] Comment on above: Performed By: #### L IPID, BMP #### [facility] [address] [place] [address] Dr. Jag Waldrop Urea nitrogen [Mass/Vol] 31.0 mg/dL Critically high 7.0-18.0 [facility] Comment on above: Performed By: #### L IPID, BMP #### [facility] [address] [place] [address] Dr. Jag Waldrop Urea nitrogen/Creatinine [Mass ratio] 22.1 mg/mg Normal [facility] Comment on above: Performed By: #### L IPID, BMP #### [facility] [address] [place] [address] Dr. Jag Waldrop CBC AUTO DIFFon 01-23-2022 BASO # 0.1 103/ul Normal 0.0-0.1 [facility] Comment on above: Performed By: #### C BC #### [facility] [address] [place] [address] Dr. Jag Waldrop Basophils/100 WBC (Bld) 1.0 % Normal 0.2-2.0 [facility] Comment on above: Performed By: #### C BC #### [facility] [address] [place] [address] Dr. Jag Waldrop EO # 0.2 103/ul Normal 0.0-0.7 [facility] Comment on above: Performed By: #### C BC #### [facility] [address] [place] [address] Dr. Jag Waldrop Eosinophils/100 WBC (Bld) 3.3 % Normal 0.9-7.0 [facility] Comment on above: Performed By: #### C BC #### [facility] [address] [place] [address] Dr. Jag Waldrop Erythrocyte distribution width (RBC) [Ratio] 13.2 % Normal 11.0-15.0 [facility] Comment on above: Performed By: #### C BC #### [facility] [address] [place] [address] Dr. Jag Waldrop Hematocrit (Bld) [Volume fraction] 35.6 % Critically low 36.0-48.0 [facility] Comment on above: Performed By: #### C BC #### [facility] [address] [place] [address] Dr. Jag Waldrop Hemoglobin (Bld) [Mass/Vol] 10.6 g/dL Critically low 12.0-16.0 [facility] Comment on above: Performed By: #### C BC #### [facility] [address] [place] [address] Dr. Jag Waldrop IG # 0.01 10e3/ul Normal 0.00-0.03 [facility] Comment on above: Performed By: #### C BC #### [facility] [address] [place] [address] Dr. Jag Waldrop IG % 0.2 % Normal 0.0-0.5 [facility] Comment on above: Performed By: #### C BC #### [facility] [address] [place] [address] Dr. Jag Waldrop LYMPH # 1.7 103/ul Normal 1.2-3.8 [facility] Comment on above: Performed By: #### C BC #### [facility] [address] [place] [address] Dr. Jag Waldrop Lymphocytes/100 WBC (Bld) 35.4 % Normal 20.5-60.0 [facility] Comment on above: Performed By: #### C BC #### [facility] [address] [place] [address] Dr. Jag Waldrop MANUAL DIFF REQ NO Normal [facility] Comment on above: Performed By: #### C BC #### [facility] [address] [place] [address] Dr. Jag Waldrop MCH (RBC) [Entitic mass] 29.0 pg Normal 26.7-34.0 [facility] Comment on above: Performed By: #### C BC #### [facility] [address] [place] [address] Dr. Jag Waldrop MCHC (RBC) [Mass/Vol] 29.8 g/dL Critically low 29.9-35.2 [facility] Comment on above: Performed By: #### C BC #### [facility] [address] [place] [address] Dr. Jag Waldrop MCV (RBC) [Entitic vol] 97.3 fL Normal 81.0-99.0 [facility] Comment on above: Performed By: #### C BC #### [facility] [address] [place] [address] Dr. Jag Waldrop MONO # 0.3 103/ul Normal 0.3-0.8 [facility] Comment on above: Performed By: #### C BC #### [facility] [address] [place] [address] Dr. Jag Waldrop Monocytes/100 WBC (Bld) 6.8 % Normal 1.7-12.0 [facility] Comment on above: Performed By: #### C BC #### [facility] [address] [place] [address] Dr. Jag Waldrop NEUT # 2.6 103/ul Normal 1.4-6.5 [facility] Comment on above: Performed By: #### C BC #### [facility] [address] [place] [address] Dr. Jag Waldrop Neutrophils/100 WBC (Bld) 53.3 % Normal 43.0-75.0 [facility] Comment on above: Performed By: #### C BC #### [facility] [address] [place] [address] Dr. Jag Waldrop Platelet mean volume (Bld) [Entitic vol] 11.0 fL Normal 9.5-13.5 [facility] Comment on above: Performed By: #### C BC #### [facility] [address] [place] [address] Dr. Jag Waldrop PLT 230 103/ul Normal 150-450 [facility] Comment on above: Performed By: #### C BC #### [facility] [address] [place] [address] Dr. Jag Waldrop RBC 3.66 106/ul Critically low 4.20-5.40 [facility] Comment on above: Performed By: #### C BC #### [facility] [address] [place] [address] Dr. Jag Waldrop WBC 4.8 103/ul Normal 4.0-11.0 [facility] Comment on above: Performed By: #### C BC #### [facility] [address] [place] [address] Dr. Jag Waldrop FERRITINon 01-23-2022 Ferritin [Mass/Vol] 35.0 ng/mL Normal 8.0-252.0 [facility] Comment on above: Performed By: #### L IPID, BMP #### [facility] [address] [address] [address] Jag Waldrop IRONon 01-23-2022 Iron [Mass/Vol] 71.0 ug/dL Normal 50.0-170.0 [facility] Comment on above: Performed By: #### L IPID, BMP #### [facility] [address] [address] [address] Jag Waldrop LIPID PROFILEon 01-23-2022 CHOL-HDL RATIO NORM SEE BELOW Normal [facility] Comment on above: Result Comment: 3.3 - 4.4 LOW RISK 4.4 - 7.1 AVERAGE RISK 7.1 - 11.0 MODERATE RISK >11.0 HIGH RISK Performed By: #### L IPID, BMP #### [facility] [address] [place] [address] Dr. Jag Waldrop Cholesterol [Mass/Vol] 133 mg/dL Normal <=200 [facility] Comment on above: Performed By: #### L IPID, BMP #### [facility] [address] [address] [address] Jag Waldrop Cholesterol in HDL [Mass/Vol] 41 mg/dL Normal 40-60 [facility] Comment on above: Performed By: #### L IPID, BMP #### [facility] [address] [address] [address] Jag Waldrop Cholesterol in LDL [Mass/Vol] 70.8 mg/dL Normal [facility] Comment on above: Performed By: #### L IPID, BMP #### [facility] [address] [address] [address] Jag Waldrop Cholesterol.total/Chol esterol in HDL [Mass ratio] 3.2 {ratio} Normal [facility] Comment on above: Performed By: #### L IPID, BMP #### [facility] [address] [place] [address] Dr. Jag Waldrop HDL NORMAL > or = 60 mg/dl - LO W CARDIOVASCULAR RISK <40 mg/dl - HIGH CARDIOVASCULAR RISK Normal [facility] Comment on above: Performed By: #### L IPID, BMP #### [facility] [address] [address] [address] Jag Waldrop LDL CALC NORMAL SEE BELOW Normal [facility] Comment on above: Result Comment: <100 mg/dl OPTIMAL 100 - 129 mg/dl NEAR OR ABOVE OPTIMAL 130 - 159 mg/dl BORDERLINE HIGH 160 - 189 mg/dl HIGH >190 mg/dl VERY HIGH Performed By: #### L IPID, BMP #### [facility] [address] [place] [address] Dr. Jag Waldrop Triglyceride [Mass/Vol] 106 mg/dL Normal <=150 [facility] Comment on above: Performed By: #### L IPID, BMP #### [facility] [address] [place] [address] Dr. Jag Waldrop VLDL CALC 21.2 mg/dL Normal [facility] Comment on above: Performed By: #### L IPID, BMP #### [facility] [address] [place] [address] Dr. Jag Waldrop PROF CHEM 8 (BAS METB)on Anion gap [Moles/Vol] 18.2 mmol/L Normal [facility] Comment on above: Performed By: #### L IPID, BMP #### [facility] [address] [place] [address] Dr. Jag Waldrop Calcium [Mass/Vol] 9.3 mg/dL Normal 8.5-10.1 [facility] Comment on above: Performed By: #### L IPID, BMP #### [facility] [address] [place] [address] Dr. Jag Waldrop Chloride [Moles/Vol] 111 mmol/L Critically high 98-107 [facility] Comment on above: Performed By: #### L IPID, BMP #### [facility] [address] [place] [address] Dr. Jag Waldrop CO2 [Moles/Vol] 19.9 mmol/L Critically low 21.0-32.0 [facility] Comment on above: Performed By: #### L IPID, BMP #### [facility] [address] [address] [address] Jag Waldrop Creatinine [Mass/Vol] 1.27 mg/dL Critically high 0.55-1.02 [facility] Comment on above: Performed By: #### L IPID, BMP #### [facility] [address] [address] [address] Jag Waldrop EGFR-AF ECUADOREAN 54 mL/min/1.73m2 Critically low >=60 [facility] Comment on above: Performed By: #### L IPID, BMP #### [facility] [address] [address] [address] Jag Waldrop EGFR-NON AF ECUADOREAN 44 mL/min/1.73m2 Critically low >=60 [facility] Comment on above: Performed By: #### L IPID, BMP #### [facility] [address] [address] [address] Jag Waldrop Glucose [Mass/Vol] 129 mg/dL Critically high 74-106 [facility] Comment on above: Performed By: #### L IPID, BMP #### [facility] [address] [address] [address] Jag Waldrop Potassium [Moles/Vol] 6.1 mmol/L Critically high 3.5-5.1 [facility] Comment on above: Performed By: #### L IPID, BMP #### [facility] [address] [address] [address] Jag Waldrop Sodium [Moles/Vol] 142 mmol/L Normal 136-145 [facility] Comment on above: Performed By: #### L IPID, BMP #### [facility] [address] [address] [address] Jag Waldrop Urea nitrogen [Mass/Vol] 35.0 mg/dL Critically high 7.0-18.0 [facility] Comment on above: Performed By: #### L IPID, BMP #### [facility] [address] [address] [address] Jag Waldrop Urea nitrogen/Creatinine [Mass ratio] 27.6 mg/mg Normal [facility] Comment on above: Performed By: #### L IPID, BMP #### [facility] [address] [address] [address] Jag Waldrop VITAMIN B12on 01-23-2022 Cobalamin (Vitamin B12) [Mass/Vol] 267.0 pg/mL Normal 193.0-986.0 [facility] Comment on above: Performed By: #### L IPID, BMP #### [facility] [address] [place] [address] Dr. Jag Waldrop XR CSPINE 2_3 VIEWSon [...] KATHY LOBATO Date: 2022-01-12 09:39 Normal [facility] BNPon 12-21-2021 Natriuretic peptide B (Bld) [Mass/Vol] 283.0 pg/mL Normal <=900.0 [facility] Comment on above: Performed By: #### P OCGLUC #### [facility] [address] [place] [address] Dr. Jag Waldrop CBC AUTO DIFFon 12-21-2021 BASO # 0.1 103/ul Normal 0.0-0.1 [facility] Comment on above: Performed By: #### L IPID, BMP #### [facility] [address] [place] [address] Dr. Jag Waldrop Basophils/100 WBC (Bld) 0.8 % Normal 0.2-2.0 [facility] Comment on above: Performed By: #### L IPID, BMP #### [facility] [address] [address] [address] Jag Waldrop EO # 0.3 103/ul Normal 0.0-0.7 [facility] Comment on above: Performed By: #### L IPID, BMP #### [facility] [address] [place] [address] Dr. Jag Waldrop Eosinophils/100 WBC (Bld) 3.8 % Normal 0.9-7.0 [facility] Comment on above: Performed By: #### L IPID, BMP #### [facility] [address] [place] [address] Dr. Jag Waldrop Erythrocyte distribution width (RBC) [Ratio] 13.2 % Normal 11.0-15.0 [facility] Comment on above: Performed By: #### L IPID, BMP #### [facility] [address] [place] [address] Dr. Jag Waldrop Hematocrit (Bld) [Volume fraction] 34.8 % Critically low 36.0-48.0 [facility] Comment on above: Performed By: #### L IPID, BMP #### [facility] [address] [place] [address] Dr. Jag Waldrop Hemoglobin (Bld) [Mass/Vol] 10.6 g/dL Critically low 12.0-16.0 [facility] Comment on above: Performed By: #### L IPID, BMP #### [facility] [address] [place] [address] Dr. Jag Waldrop IG # 0.02 10e3/ul Normal 0.00-0.03 [facility] Comment on above: Performed By: #### L IPID, BMP #### [facility] [address] [place] [address] Dr. Jag Waldrop IG % 0.3 % Normal 0.0-0.5 [facility] Comment on above: Performed By: #### L IPID, BMP #### [facility] [address] [place] [address] Dr. Jag Waldrop LYMPH # 1.7 103/ul Normal 1.2-3.8 [facility] Comment on above: Performed By: #### L IPID, BMP #### [facility] [address] [place] [address] Dr. Jag Waldrop Lymphocytes/100 WBC (Bld) 23.8 % Normal 20.5-60.0 [facility] Comment on above: Performed By: #### L IPID, BMP #### [facility] [address] [place] [address] Dr. Jag Waldrop MANUAL DIFF REQ NO Normal [facility] Comment on above: Performed By: #### L IPID, BMP #### [facility] [address] [place] [address] Dr. Jag Waldrop MCH (RBC) [Entitic mass] 29.1 pg Normal 26.7-34.0 [facility] Comment on above: Performed By: #### L IPID, BMP #### [facility] [address] [place] [address] Dr. Jag Waldrop MCHC (RBC) [Mass/Vol] 30.5 g/dL Normal 29.9-35.2 [facility] Comment on above: Performed By: #### L IPID, BMP #### [facility] [address] [place] [address] Dr. Jag Waldrop MCV (RBC) [Entitic vol] 95.6 fL Normal 81.0-99.0 [facility] Comment on above: Performed By: #### L IPID, BMP #### [facility] [address] [place] [address] Dr. Jag Waldrop MONO # 0.7 103/ul Normal 0.3-0.8 [facility] Comment on above: Performed By: #### L IPID, BMP #### [facility] [address] [place] [address] Dr. Jag Waldrop Monocytes/100 WBC (Bld) 9.3 % Normal 1.7-12.0 [facility] Comment on above: Performed By: #### L IPID, BMP #### [facility] [address] [place] [address] Dr. Jag Waldrop NEUT # 4.4 103/ul Normal 1.4-6.5 [facility] Comment on above: Performed By: #### L IPID, BMP #### [facility] [address] [place] [address] Dr. Jag Waldrop Neutrophils/100 WBC (Bld) 62.0 % Normal 43.0-75.0 [facility] Comment on above: Performed By: #### L IPID, BMP #### [facility] [address] [place] [address] Dr. Jag Waldrop Platelet mean volume (Bld) [Entitic vol] 11.5 fL Normal 9.5-13.5 [facility] Comment on above: Performed By: #### L IPID, BMP #### [facility] [address] [place] [address] Dr. Jag Waldrop PLT 235 103/ul Normal 150-450 [facility] Comment on above: Performed By: #### L IPID, BMP #### [facility] [address] [place] [address] Dr. Jag Waldrop RBC 3.64 106/ul Critically low 4.20-5.40 [facility] Comment on above: Performed By: #### L IPID, BMP #### [facility] [address] [place] [address] Dr. Jag Waldrop WBC 7.1 103/ul Normal 4.0-11.0 [facility] Comment on above: Performed By: #### L IPID, BMP #### [facility] [address] [place] [address] Dr. Jag Waldrop CRPon 12-21-2021 CRP 1.1 mg/dL Critically high <=1.0 [facility] Comment on above: Performed By: #### B MP #### [facility] [address] [place] [address] Dr. Jag Waldrop Covid-19 PCR ([facility]on SARS-CoV-2 (COVID-19) RNA PRINCE+probe Ql (Unsp spec) Not detected Normal NOT DETECTED [facility] Comment on above: Result Comment: This test is not yet approved or cleared by the [place] FDA. When there are no FDA-approved or cleared tests available, and other criteria are met, FDA can make tests available under an emergency access mechanism called an Emergency Use Authorization (EUA). The EUA for this test is supported by the [employer] of Health and Human Service's (HHS's) declaration [...] Performed By: #### L IPID, BMP #### [facility] [address] [place] [address] Dr. Jag Waldrop PROF CHEM 8 (BAS METB)on Anion gap [Moles/Vol] 13.3 mmol/L Normal [facility] Comment on above: Performed By: #### B MP #### [facility] [address] [place] [address] Dr. Jag Waldrop Calcium [Mass/Vol] 8.7 mg/dL Normal 8.5-10.1 [facility] Comment on above: Performed By: #### B MP #### [facility] [address] [place] [address] Dr. Jag Waldrop Chloride [Moles/Vol] 107 mmol/L Normal 98-107 [facility] Comment on above: Performed By: #### B MP #### [facility] [address] [place] [address] Dr. Jag Waldrop CO2 [Moles/Vol] 23.2 mmol/L Normal 21.0-32.0 [facility] Comment on above: Performed By: #### B MP #### [facility] [address] [place] [address] Dr. Jag Waldrop Creatinine [Mass/Vol] 1.55 mg/dL Critically high 0.55-1.02 [facility] Comment on above: Performed By: #### B MP #### [facility] [address] [place] [address] Dr. Jag Waldrop EGFR-AF ECUADOREAN 43 mL/min/1.73m2 Critically low >=60 [facility] Comment on above: Performed By: #### B MP #### [facility] [address] [address] [address] Jag Waldrop EGFR-NON AF ECUADOREAN 35 mL/min/1.73m2 Critically low >=60 [facility] Comment on above: Performed By: #### B MP #### [facility] [address] [address] [address] Jag Waldrop Glucose [Mass/Vol] 123 mg/dL Critically high 74-106 [facility] Comment on above: Performed By: #### B MP #### [facility] [address] [address] [address] Jag Waldrop Potassium [Moles/Vol] 4.5 mmol/L Normal 3.5-5.1 [facility] Comment on above: Performed By: #### B MP #### [facility] [address] [place] [address] Dr. Jag Waldrop Sodium [Moles/Vol] 139 mmol/L Normal 136-145 [facility] Comment on above: Performed By: #### B MP #### [facility] [address] [address] [address] Jag Waldrop Urea nitrogen [Mass/Vol] 36.0 mg/dL Critically high 7.0-18.0 [facility] Comment on above: Performed By: #### B MP #### [facility] [address] [address] [address] Jag Waldrop Urea nitrogen/Creatinine [Mass ratio] 23.2 mg/mg Normal [facility] Comment on above: Performed By: #### B MP #### [facility] [address] [address] [address] Jag Waldrop SED RATE [facility] 2021 SED RATE 26 mm/hr Normal <=30 [facility] Comment on above: Performed By: #### S EDR #### [facility] [address] [place] [address] Dr. Jag Waldrop XR CHEST 2 Von [...] by: ALEX ALLEN Date: 2021-12-21 18:35 Normal [facility] OVA AND PARASITE EXAMINATION on 12-06-2021 Ova + Parasite Exam Final report Normal [facility] Comment on above: Result Comment: Thes e results were obtained using wet preparation(s) and trichrome stained smear. This test does not include testing for Cryptosporidium parvum, Cyclospora, or Microsporidia. Performed By: #### L IPID, BMP #### [facility] [address] [place] [address] Dr. Jag Waldrop Result 1 Comment Normal [facility] Comment on above: Result Comment: No o va, cysts, or parasites seen. . One negative specimen does not rule out the possibility of a parasitic infection. Performed By: #### L IPID, BMP #### [facility] [address] [place] [address] Dr. Jag Waldrop STOOL CULTUREon 12-05-2021 Campylobacter Culture Final report Normal [facility] Comment on above: Performed By: #### C XSTOOL #### [facility] [address] [place] [address] Dr. Jag Waldrop E coli Shiga Toxin EIA Negative Normal Negative [facility] Comment on above: Performed By: #### C XSTOOL #### [facility] [address] [place] [address] Dr. Jag Waldrop Result 1 Comment Normal [facility] Comment on above: Result Comment: No S almonella or Shigella recovered. Performed By: #### C XSTOOL #### [facility] [address] [place] [address] Dr. Jag Waldrop Result Comment: No C ampylobacter species isolated. Salmonella/Shigella Screen Final report Normal [facility] Comment on above: Performed By: #### C XSTOOL #### [facility] [address] [place] [address] Dr. Jag Waldrop GI PANEL (PCR)on 11-30-2021 Adenovirus F 40/41 Not detected Normal NOT DETECTED [facility] Comment on above: Performed By: #### E RUR #### [facility] [address] [place] [address] Dr. Jag Waldrop Astrovirus Not detected Normal NOT DETECTED [facility] Comment on above: Performed By: #### E RUR #### [facility] [address] [place] [address] Dr. Jag Waldrop C. Diff toxin A/B Detected Critically abnormal NOT DETECTED [facility] Comment on above: Performed By: #### E RUR #### [facility] [address] [place] [address] Dr. Jag Waldrop Campylobacter Not detected Normal NOT DETECTED [facility] Comment on above: Performed By: #### E RUR #### [facility] [address] [place] [address] Dr. Jag Waldrop Cryptosporidium Not detected Normal NOT DETECTED [facility] Comment on above: Performed By: #### E RUR #### [facility] [address] [place] [address] Dr. Jag Waldrop Cyclos. Cayetanensis Not detected Normal NOT DETECTED [facility] Comment on above: Performed By: #### E RUR #### [facility] [address] [place] [address] Dr. Jag Waldrop E. Coli O157 Not Applicable Normal Not Applicable [facility] Comment on above: Performed By: #### E RUR #### [facility] [address] [place] [address] Dr. Jag Waldrop E. histolytica Not detected Normal NOT DETECTED [facility] Comment on above: Performed By: #### E RUR #### [facility] [address] [place] [address] Dr. Jag Waldrop EAEC Not detected Normal NOT DETECTED [facility] Comment on above: Performed By: #### E RUR #### [facility] [address] [place] [address] Dr. Jag Waldrop EIEC Not detected Normal NOT DETECTED [facility] Comment on above: Performed By: #### E RUR #### [facility] [address] [place] [address] Dr. Jag Waldrop EPEC Not detected Normal NOT DETECTED [facility] Comment on above: Performed By: #### E RUR #### [facility] [address] [place] [address] Dr. Jag Waldrop ETEC Not detected Normal NOT DETECTED [facility] Comment on above: Performed By: #### E RUR #### [facility] [address] [place] [address] Dr. Jag [place] Not detected Normal NOT DETECTED [facility] Comment on above: Performed By: #### E RUR #### [facility] [address] [place] [address] Dr. Jag TANG CONTROLS PASSED Normal [facility] Comment on above: Performed By: #### E RUR #### [facility] [address] [place] [address] Dr. Jag [facility] HEADER GI PANEL BACTERIA Normal [facility] Comment on above: Performed By: #### E RUR #### [facility] [address] [place] [address] Dr. Jag SANCHEZ ECOLI GI PANEL DIARRHEAGEN IC E.COLI / SHIGELLA Normal [facility] Comment on above: Performed By: #### E RUR #### [facility] [facility] [address] [place] [address] Dr. Jag SANCHEZ INFO SEE BELOW Normal [facility] Comment on above: Result Comment: EAEC - Enteroaggregative E. Coli EPEC- Enteropathogenic E. Coli ETEC- Enterotoxigenic E. Coli lt/st STEC- Shigella-like toxin-producing E. Coli stx1/stx2 EIEC- Shigella/Enteroinvasive E. Coli Performed By: #### E RUR #### [facility] [address] [place] [address] Dr. Jag SANCHEZ PARASITES GI PANEL PARASITES Normal [facility] Comment on above: Performed By: #### E RUR #### [facility] [address] [place] [address] Dr. Jag SANCHEZ VIRUS GI PANEL VIRUSES Normal [facility] Comment on above: Performed By: #### E RUR #### [facility] [address] [place] [address] Dr. Jag Waldrop Norovirus GI/GII Not detected Normal NOT DETECTED [facility] Comment on above: Performed By: #### E RUR #### [facility] [address] [place] [address] Dr. Jag Waldrop P. Shigelloides Not detected Normal NOT DETECTED [facility] Comment on above: Performed By: #### E RUR #### [facility] [address] [place] [address] Dr. Jag Waldrop Rotavirus A Not detected Normal NOT DETECTED [facility] Comment on above: Performed By: #### E RUR #### [facility] [address] [place] [address] Dr. Jag Waldrop Salmonella Not detected Normal NOT DETECTED [facility] Comment on above: Performed By: #### E RUR #### [facility] [address] [place] [address] Dr. Jag Waldrop Sapovirus Not detected Normal NOT DETECTED [facility] Comment on above: Performed By: #### E RUR #### [facility] [address] [place] [address] Dr. Jag Waldrop STEC Not detected Normal NOT DETECTED [facility] Comment on above: Performed By: #### E RUR #### [facility] [address] [place] [address] Dr. Jag Waldrop Vibrio Not detected Normal NOT DETECTED [facility] Comment on above: Performed By: #### E RUR #### [facility] [address] [place] [address] Dr. Jag Waldrop Vibrio Cholera Not detected Normal NOT DETECTED [facility] Comment on above: Performed By: #### E RUR #### [facility] [address] [place] [address] Dr. Jag Waldrop Y. Enterocolitica Not detected Normal NOT DETECTED [facility] Comment on above: Performed By: #### E RUR #### [facility] [address] [place] [address] Dr. Jag Waldrop OCC BLD IMMUNO SCREENon 11-14 OCCULT BLOOD Negative Normal NEGATIVE [facility] Comment on above: Performed By: #### L IPID, BMP #### [facility] [address] [place] [address] Dr. Jag Waldrop PROF CHEM 8 (BAS METB)on Anion gap [Moles/Vol] 15.5 mmol/L Normal [facility] Comment on above: Performed By: #### P OCGLUC #### [facility] [address] [place] [address] Dr. Jag Waldrop Calcium [Mass/Vol] 9.1 mg/dL Normal 8.5-10.1 [facility] Comment on above: Performed By: #### P OCGLUC #### [facility] [address] [place] [address] Dr. Jag Waldrop Chloride [Moles/Vol] 106 mmol/L Normal 98-107 [facility] Comment on above: Performed By: #### P OCGLUC #### [facility] [address] [place] [address] Dr. Jag Waldrop CO2 [Moles/Vol] 25.4 mmol/L Normal 21.0-32.0 [facility] Comment on above: Performed By: #### P OCGLUC #### [facility] [address] [place] [address] Dr. Jag Waldrop Creatinine [Mass/Vol] 1.18 mg/dL Critically high 0.55-1.02 [facility] Comment on above: Performed By: #### P OCGLUC #### [facility] [address] [address] [address] Jag Waldrop EGFR-AF ECUADOREAN 59 mL/min/1.73m2 Critically low >=60 [facility] Comment on above: Performed By: #### P OCGLUC #### [facility] [address] [address] [address] Jag Waldrop EGFR-NON AF ECUADOREAN 48 mL/min/1.73m2 Critically low >=60 [facility] Comment on above: Performed By: #### P OCGLUC #### [facility] [address] [address] [address] Jga Waldrop Glucose [Mass/Vol] 141 mg/dL Critically high 74-106 [facility] Comment on above: Performed By: #### P OCGLUC #### [facility] [address] [address] [address] Jag Waldrop Potassium [Moles/Vol] 3.9 mmol/L Normal 3.5-5.1 [facility] Comment on above: Performed By: #### P OCGLUC #### [facility] [address] [address] [address] Jag Waldrop Sodium [Moles/Vol] 143 mmol/L Normal 136-145 [facility] Comment on above: Performed By: #### P OCGLUC #### [facility] [address] [address] [address] Jag Waldrop Urea nitrogen [Mass/Vol] 22.0 mg/dL Critically high 7.0-18.0 [facility] Comment on above: Performed By: #### P OCGLUC #### [facility] [address] [address] [address] Jag Waldrop Urea nitrogen/Creatinine [Mass ratio] 18.6 mg/mg Normal [facility] Comment on above: Performed By: #### P OCGLUC #### [facility] [address] [address] [address] Jag Waldrop XR KUB 1 VIEWon [...] ALEX ALLEN Date: 2021-10-29 09:01 Normal [facility] CULTURE URINEon 10-28-2021 CULTURE URINE Culture Observations : LIGHT GROWTH OF MIXED GENITAL SANDEE. NO POTENTIAL PATHOGENS SEEN. Normal [facility] Comment on above: Performed By: #### E RUR #### [facility] [address] [place] [address] Dr. Jag Waldrop GLYCOHEMOGLOBIN A1Con 2021 ADA RECOMMENDATION SEE BELOW Normal [facility] Comment on above: Result Comment: ADA RECOMMENDED LIMIT 4.0 - 6.0 ADA THERAPEUTIC TARGET < 7.0 ACTION SUGGESTED > 7.0 Performed By: #### E RUR #### [facility] [address] [place] [address] Dr. Jag Waldrop Glucose [Mass/Vol] 157 mg/dL Normal [facility] Comment on above: Performed By: #### E RUR #### [facility] [address] [place] [address] Dr. Jag Waldrop HbA1c (Bld) [Mass fraction] 7.1 % Critically high 4.5-6.2 [facility] Comment on above: Performed By: #### E RUR #### [facility] [address] [place] [address] Dr. Jag Waldrop LIPID PROFILEon 10-28-2021 CHOL-HDL RATIO NORM SEE BELOW Normal [facility] Comment on above: Result Comment: 3.3 - 4.4 LOW RISK 4.4 - 7.1 AVERAGE RISK 7.1 - 11.0 MODERATE RISK >11.0 HIGH RISK Performed By: #### P OCGLUC #### [facility] [address] [place] [address] Dr. Jag Waldrop Cholesterol [Mass/Vol] 150 mg/dL Normal <=200 [facility] Comment on above: Performed By: #### P OCGLUC #### [facility] [address] [address] [address] Jag Waldrop Cholesterol in HDL [Mass/Vol] 39 mg/dL Critically low 40-60 [facility] Comment on above: Performed By: #### P OCGLUC #### [facility] [address] [address] [address] Jag Waldrop Cholesterol in LDL [Mass/Vol] 82.6 mg/dL Normal [facility] Comment on above: Performed By: #### P OCGLUC #### [facility] [address] [address] [address] Jag Waldrpo Cholesterol.total/Chol esterol in HDL [Mass ratio] 3.8 {ratio} Normal [facility] Comment on above: Performed By: #### P OCGLUC #### [facility] [address] [place] [address] Dr. Jag Waldrop HDL NORMAL > or = 60 mg/dl - LO W CARDIOVASCULAR RISK <40 mg/dl - HIGH CARDIOVASCULAR RISK Normal [facility] Comment on above: Performed By: #### P OCGLUC #### [facility] [address] [place] [address] Dr. Jag Waldrop LDL CALC NORMAL SEE BELOW Normal [facility] Comment on above: Result Comment: <100 mg/dl OPTIMAL 100 - 129 mg/dl NEAR OR ABOVE OPTIMAL 130 - 159 mg/dl BORDERLINE HIGH 160 - 189 mg/dl HIGH >190 mg/dl VERY HIGH Performed By: #### P OCGLUC #### [facility] [address] [place] [address] Dr. Jag Waldrop Triglyceride [Mass/Vol] 142 mg/dL Normal <=150 [facility] Comment on above: Performed By: #### P OCGLUC #### [facility] [address] [place] [address] Dr. Jag Waldrop VLDL CALC 28.4 mg/dL Normal [facility] Comment on above: Performed By: #### P OCGLUC #### [facility] [address] [place] [address] Dr. Jag Waldrop PROF CHEM 8 (BAS METB)on Anion gap [Moles/Vol] 16.0 mmol/L Normal [facility] Comment on above: Performed By: #### P OCGLUC #### [facility] [address] [address] [address] Jag Waldrop Calcium [Mass/Vol] 8.7 mg/dL Normal 8.5-10.1 [facility] Comment on above: Performed By: #### P OCGLUC #### [facility] [address] [address] [address] Jag Waldrop Chloride [Moles/Vol] 108 mmol/L Critically high 98-107 [facility] Comment on above: Performed By: #### P OCGLUC #### [facility] [address] [address] [address] Jag Waldrop CO2 [Moles/Vol] 22.1 mmol/L Normal 21.0-32.0 [facility] Comment on above: Performed By: #### P OCGLUC #### [facility] [address] [address] [address] Jag Waldrop Creatinine [Mass/Vol] 1.72 mg/dL Critically high 0.55-1.02 [facility] Comment on above: Performed By: #### P OCGLUC #### [facility] [address] [address] [address] Jag Waldrop EGFR-AF ECUADOREAN 38 mL/min/1.73m2 Critically low >=60 [facility] Comment on above: Performed By: #### P OCGLUC #### [facility] [address] [address] [address] Jag Waldrop EGFR-NON AF ECUADOREAN 31 mL/min/1.73m2 Critically low >=60 [facility] Comment on above: Performed By: #### P OCGLUC #### [facility] [address] [address] [address] Jag Waldrop Glucose [Mass/Vol] 144 mg/dL Critically high 74-106 [facility] Comment on above: Performed By: #### P OCGLUC #### [facility] [address] [place] [address] Dr. Jag Waldrop Potassium [Moles/Vol] 5.1 mmol/L Normal 3.5-5.1 [facility] Comment on above: Performed By: #### P OCGLUC #### [facility] [address] [place] [address] Dr. Jag Waldrop Sodium [Moles/Vol] 141 mmol/L Normal 136-145 [facility] Comment on above: Performed By: #### P OCGLUC #### [facility] [address] [place] [address] Dr. Jag Waldrop Urea nitrogen [Mass/Vol] 41.0 mg/dL Critically high 7.0-18.0 [facility] Comment on above: Performed By: #### P OCGLUC #### [facility] [address] [place] [address] Dr. Jag Waldrop Urea nitrogen/Creatinine [Mass ratio] 23.8 mg/mg Normal [facility] Comment on above: Performed By: #### P OCGLUC #### [facility] [address] [place] [address] Dr. Jag Waldrop UA (CLEAN/CATCH) DESKTOP ADMINISTRATOR/MICRO I F IND.on 10-28-2021 Bilirubin Ql (U) Negative Normal NEGATIVE [facility] Comment on above: Performed By: #### L IPID, BMP #### [facility] [address] [place] [address] Dr. Jag Waldrop Clarity (U) SL CLOUDY Abnormal CLEAR [facility] Comment on above: Performed By: #### L IPID, BMP #### [facility] [address] [place] [address] Dr. Jag Waldrop Color (U) LT. YELLOW Normal YELLOW [facility] Comment on above: Performed By: #### L IPID, BMP #### [facility] [address] [place] [address] Dr. Jag Waldrop Glucose Ql (U) Negative Normal NEGATIVE [facility] Comment on above: Performed By: #### L IPID, BMP #### [facility] [address] [place] [address] Dr. Jag Waldrop Hemoglobin Ql (U) TRACE-INTACT Abnormal NEGATIVE [facility] Comment on above: Performed By: #### L IPID, BMP #### [facility] [address] [place] [address] Dr. Jag Waldrop Ketones Ql (U) Negative Normal NEGATIVE [facility] Comment on above: Performed By: #### L IPID, BMP #### [facility] [address] [place] [address] Dr. Jag Waldrop LEUKOCYTES SMALL Abnormal NEGATIVE [facility] Comment on above: Performed By: #### L IPID, BMP #### [facility] [address] [place] [address] Dr. Jag Waldrop Nitrite Ql (U) Negative Normal NEGATIVE [facility] Comment on above: Performed By: #### L IPID, BMP #### [facility] [address] [place] [address] Dr. Jag Waldrop pH (U) 5.5 [pH] Normal 5-9 [facility] Comment on above: Performed By: #### L IPID, BMP #### [facility] [address] [place] [address] Dr. Jag Waldrop SPEC GRAVITY 1.020 Normal 1.005-<=1.0 25 [facility] Comment on above: Performed By: #### L IPID, BMP #### [facility] [address] [place] [address] Dr. Jag Waldrop UA PROTEIN Negative Normal NEGATIVE/ TRACE [facility] Comment on above: Performed By: #### L IPID, BMP #### [facility] [address] [place] [address] Dr. Jag Waldrop UR MICRO IND INDICATED Normal [facility] Comment on above: Performed By: #### L IPID, BMP #### [facility] [address] [place] [address] Dr. Jag Waldrop Urobilinogen Qn (U) 0.2 {Chris'U}/dL Normal 0.2 - 1. 0 [facility] Comment on above: Performed By: #### L IPID, BMP #### [facility] [address] [place] [address] Dr. Jag Waldrop URINE MICROSCOPIC ONLYon BACTERIA TRACE Abnormal NONE SEEN [facility] Comment on above: Performed By: #### L IPID, BMP #### [facility] [address] [place] [address] Dr. Jag Waldrop Bacteria identified Cx Nom (U) INDICATED Normal [facility] Comment on above: Performed By: #### L IPID, BMP #### [facility] [address] [place] [address] Dr. Jag Waldrop CAST NONE SEEN Normal NONE SEEN [facility] Comment on above: Performed By: #### L IPID, BMP #### [facility] [address] [place] [address] Dr. Jag Waldrop Crystals LM Nom (Urine sed) NONE SEEN Normal NONE SEEN [facility] Comment on above: Performed By: #### L IPID, BMP #### [facility] [address] [place] [address] Dr. Jag Waldrop Epithelial cells LM Ql (Urine sed) RARE Normal NONE SEEN /RARE [facility] Comment on above: Performed By: #### L IPID, BMP #### [facility] [address] [place] [address] Dr. Jag Waldrop MUCOUS TRACE Abnormal NONE SEEN [facility] Comment on above: Performed By: #### L IPID, BMP #### [facility] [address] [place] [address] Dr. Jag Waldrop RBC 0-2 Normal 0-2 [facility] Comment on above: Performed By: #### L IPID, BMP #### [facility] [address] [place] [address] Dr. Jag Waldrop WBC 2-5 Abnormal NONE SEEN [facility] Comment on above: Performed By: #### L IPID, BMP #### [facility] [address] [place] [address] Dr. Jag Waldrop BNPon 10-02-2021 Natriuretic peptide B (Bld) [Mass/Vol] 52.0 pg/mL Normal <=900.0 [facility] Comment on above: Performed By: #### L IPID, BMP #### [facility] [address] [address] [address] Jag Waldrop CBC AUTO DIFFon 10-02-2021 BASO # 0.1 103/ul Normal 0.0-0.1 [facility] Comment on above: Performed By: #### P OCGLUC #### [facility] [address] [place] [address] Dr. Jag Waldrop Basophils/100 WBC (Bld) 0.8 % Normal 0.2-2.0 [facility] Comment on above: Performed By: #### P OCGLUC #### [facility] [address] [place] [address] Dr. Jag Waldrop EO # 0.2 103/ul Normal 0.0-0.7 [facility] Comment on above: Performed By: #### P OCGLUC #### [facility] [address] [place] [address] Dr. Jag Waldrop Eosinophils/100 WBC (Bld) 3.0 % Normal 0.9-7.0 [facility] Comment on above: Performed By: #### P OCGLUC #### [facility] [address] [place] [address] Dr. Jag Waldrop Erythrocyte distribution width (RBC) [Ratio] 14.2 % Normal 11.0-15.0 [facility] Comment on above: Performed By: #### P OCGLUC #### [facility] [address] [place] [address] Dr. Jag Waldrop Hematocrit (Bld) [Volume fraction] 35.9 % Critically low 36.0-48.0 [facility] Comment on above: Performed By: #### P OCGLUC #### [facility] [address] [place] [address] Dr. Jag Waldrop Hemoglobin (Bld) [Mass/Vol] 11.0 g/dL Critically low 12.0-16.0 [facility] Comment on above: Performed By: #### P OCGLUC #### [facility] [address] [place] [address] Dr. Jag Waldrop IG # 0.03 10e3/ul Normal 0.00-0.03 [facility] Comment on above: Performed By: #### P OCGLUC #### [facility] [address] [place] [address] Dr. Jag Waldrop IG % 0.4 % Normal 0.0-0.5 [facility] Comment on above: Performed By: #### P OCGLUC #### [facility] [address] [place] [address] Dr. Jag Waldrop LYMPH # 2.8 103/ul Normal 1.2-3.8 [facility] Comment on above: Performed By: #### P OCGLUC #### [facility] [address] [place] [address] Dr. Jag Waldrop Lymphocytes/100 WBC (Bld) 37.9 % Normal 20.5-60.0 [facility] Comment on above: Performed By: #### P OCGLUC #### [facility] [address] [place] [address] Dr. Jag Waldrop MANUAL DIFF REQ NO Normal [facility] Comment on above: Performed By: #### P OCGLUC #### [facility] [address] [place] [address] Dr. Jag Waldrop MCH (RBC) [Entitic mass] 28.7 pg Normal 26.7-34.0 [facility] Comment on above: Performed By: #### P OCGLUC #### [facility] [address] [place] [address] Dr. Jag Waldrop MCHC (RBC) [Mass/Vol] 30.6 g/dL Normal 29.9-35.2 [facility] Comment on above: Performed By: #### P OCGLUC #### [facility] [address] [place] [address] Dr. Jag Waldrop MCV (RBC) [Entitic vol] 93.7 fL Normal 81.0-99.0 [facility] Comment on above: Performed By: #### P OCGLUC #### [facility] [address] [place] [address] Dr. Jag Waldrop MONO # 0.5 103/ul Normal 0.3-0.8 [facility] Comment on above: Performed By: #### P OCGLUC #### [facility] [address] [address] [address] Jag Waldrop Monocytes/100 WBC (Bld) 7.4 % Normal 1.7-12.0 [facility] Comment on above: Performed By: #### P OCGLUC #### [facility] [address] [address] [address] Jag Waldrop NEUT # 3.7 103/ul Normal 1.4-6.5 [facility] Comment on above: Performed By: #### P OCGLUC #### [facility] [address] [address] [address] Jag Waldrop Neutrophils/100 WBC (Bld) 50.5 % Normal 43.0-75.0 [facility] Comment on above: Performed By: #### P OCGLUC #### [facility] [address] [place] [address] Dr. Jag Waldrop Platelet mean volume (Bld) [Entitic vol] 10.2 fL Normal 9.5-13.5 [facility] Comment on above: Performed By: #### P OCGLUC #### [facility] [address] [place] [address] Dr. Jag Waldrop PLT 261 103/ul Normal 150-450 [facility] Comment on above: Performed By: #### P OCGLUC #### [facility] [address] [address] [address] Jag Waldrop RBC 3.83 106/ul Critically low 4.20-5.40 [facility] Comment on above: Performed By: #### P OCGLUC #### [facility] [address] [address] [address] Jag Waldrop WBC 7.3 103/ul Normal 4.0-11.0 [facility] Comment on above: Performed By: #### P OCGLUC #### [facility] [address] [address] [address] Jag Waldrop POINT OF CARE GLUCOSEon - Glucose [Mass/Vol] 156 mg/dL Critically high 74-106 [facility] Comment on above: Performed By: #### P OCGLUC #### [facility] [address] [address] [address] Jag Waldrop Glucose [Mass/Vol] 304 mg/dL Critically high 74-106 [facility] Comment on above: Performed By: #### P OCGLUC #### [facility] [address] [address] [address] Jag Waldrop Glucose [Mass/Vol] 77 mg/dL Normal 74-106 [facility] Comment on above: Performed By: #### E RUR #### [facility] [address] [address] [address] Jag Waldrop Glucose [Mass/Vol] 136 mg/dL Critically high 74-106 [facility] Comment on above: Performed By: #### E RUR #### [facility] [address] [address] [address] Jag Waldrop Glucose [Mass/Vol] 73 mg/dL Critically low 74-106 [facility] Comment on above: Performed By: #### E RUR #### [facility] [address] [address] [address] Jag Waldrop PROF CHEM 8 (BAS METB)on Anion gap [Moles/Vol] 15.5 mmol/L Normal [place] [facility] Comment on above: Performed By: #### P OCGLUC #### [facility] [address] [address] [address] Jag Waldrop Calcium [Mass/Vol] 8.3 mg/dL Critically low 8.5-10.1 [facility] Comment on above: Performed By: #### P OCGLUC #### [facility] [address] [address] [address] Jag Waldrop Chloride [Moles/Vol] 108 mmol/L Critically high 98-107 [facility] Comment on above: Performed By: #### P OCGLUC #### [facility] [address] [address] [address] Jag Waldrop CO2 [Moles/Vol] 18.9 mmol/L Critically low 21.0-32.0 [facility] Comment on above: Performed By: #### P OCGLUC #### [facility] [address] [address] [address] Jag Waldrop Creatinine [Mass/Vol] 1.43 mg/dL Critically high 0.55-1.02 [facility] Comment on above: Performed By: #### P OCGLUC #### [facility] [address] [address] [address] Jag Waldrop EGFR-AF ECUADOREAN 47 mL/min/1.73m2 Critically low >=60 [facility] Comment on above: Performed By: #### P OCGLUC #### [facility] [address] [address] [address] Jag Waldrop EGFR-NON AF ECUADOREAN 39 mL/min/1.73m2 Critically low >=60 [facility] Comment on above: Performed By: #### P OCGLUC #### [facility] [address] [address] [address] Jag Waldrop Glucose [Mass/Vol] 269 mg/dL Critically high 74-106 [facility] Comment on above: Performed By: #### P OCGLUC #### [facility] [address] [address] [address] Jag Waldrop Potassium [Moles/Vol] 5.4 mmol/L Critically high 3.5-5.1 [facility] Comment on above: Performed By: #### P OCGLUC #### [facility] [address] [address] [address] Jag Waldrop Sodium [Moles/Vol] 137 mmol/L Normal 136-145 [facility] Comment on above: Performed By: #### P OCGLUC #### [facility] [address] [address] [address] Jag Waldrop Urea nitrogen [Mass/Vol] 40.0 mg/dL Critically high 7.0-18.0 [facility] Comment on above: Performed By: #### P OCGLUC #### [facility] [address] [address] [address] Jag Waldrop Urea nitrogen/Creatinine [Mass ratio] 28.0 mg/mg Normal [facility] Comment on above: Performed By: #### P OCGLUC #### [facility] [address] [place] [address] Dr. Jag Waldrop Anion gap [Moles/Vol] 14.0 mmol/L Normal [facility] Comment on above: Performed By: #### E RUR #### [facility] [address] [place] [address] Dr. Jag Waldrop Calcium [Mass/Vol] 8.9 mg/dL Normal 8.5-10.1 [facility] Comment on above: Performed By: #### E RUR #### [facility] [address] [place] [address] Dr. Jag Waldrop Chloride [Moles/Vol] 110 mmol/L Critically high 98-107 [facility] Comment on above: Performed By: #### E RUR #### [facility] [address] [place] [address] Dr. Jag Waldrop CO2 [Moles/Vol] 21.1 mmol/L Normal 21.0-32.0 [facility] Comment on above: Performed By: #### E RUR #### [facility] [address] [place] [address] Dr. Jag Waldrop Creatinine [Mass/Vol] 1.32 mg/dL Critically high 0.55-1.02 [facility] Comment on above: Performed By: #### E RUR #### [facility] [address] [place] [address] Dr. Jag Waldrop EGFR-AF ECUADOREAN 52 mL/min/1.73m2 Critically low >=60 [facility] Comment on above: Performed By: #### E RUR #### [facility] [address] [place] [address] Dr. Jag Waldrop EGFR-NON AF ECUADOREAN 43 mL/min/1.73m2 Critically low >=60 [facility] Comment on above: Performed By: #### E RUR #### [facility] [address] [place] [address] Dr. Jag Waldrop Glucose [Mass/Vol] 79 mg/dL Normal 74-106 [facility] Comment on above: Performed By: #### E RUR #### [facility] [address] [address] [address] Jag Waldrop Potassium [Moles/Vol] 6.1 mmol/L Critically high 3.5-5.1 [facility] Comment on above: Result Comment: Test Repeated. Critical Value Verified Performed By: #### E RUR #### [facility] [address] [place] [address] Dr. Jag Waldrop Sodium [Moles/Vol] 140 mmol/L Normal 136-145 [facility] Comment on above: Performed By: #### E RUR #### [facility] [address] [place] [address] Dr. Jag Waldrop Urea nitrogen [Mass/Vol] 45.0 mg/dL Critically high 7.0-18.0 [facility] Comment on above: Performed By: #### E RUR #### [facility] [address] [place] [address] Dr. Jag Waldrop Urea nitrogen/Creatinine [Mass ratio] 34.1 mg/mg Normal [facility] Comment on above: Performed By: #### E RUR #### [facility] [address] [place] [address] Dr. Jag Waldrop BASIC METABOLIC PANELon - Calcium [Mass/Vol] 8.9 mg/dL Normal 8.6-10.3 [facility] Comment on above: Order Comment: No: D o not add to previous draw Performed By: #### 5 6101, 46309 #### [facility] [address] [place] [address], [place] Chloride [Moles/Vol] 105 mmol/L Normal 98-107 [facility] Comment on above: Order Comment: No: D o not add to previous draw Performed By: #### 5 6101, 08320 #### [facility] [address] [place] [address], [place] CO2 [Moles/Vol] 26 mmol/L Normal 21-31 [facility] Comment on above: Order Comment: No: D o not add to previous draw Performed By: #### 5 610, 56144 #### [facility] [address] [place] [address], [place] Creatinine [Mass/Vol] 0.99 mg/dL Normal 0.60-1.20 [facility] Comment on above: Order Comment: No: D o not add to previous draw Performed By: #### 5 610, 60099 #### [facility] [address] [place] [address], [place] GFR/1.73 sq M predicted among blacks MDRD (S/P/Bld) [Vol rate/Area] mL/min/{1.73_m2} Normal >60 [facility] Comment on above: Order Comment: No: D o not add to previous draw Performed By: #### 5 610, 30593 #### [facility] [address] [place] [address], [place] GFR/1.73 sq M predicted among non-blacks MDRD (S/P/Bld) [Vol rate/Area] mL/min/{1.73_m2} Normal >60 [facility] Comment on above: Order Comment: No: D o not add to previous draw Performed By: #### 5 610, 10091 #### [facility] [address] [place] [address], [place] Glucose [Mass/Vol] 145 mg/dL High 70-100 [facility] Comment on above: Order Comment: No: D o not add to previous draw Performed By: #### 5 610, 07757 #### [facility] [address] [place] [address], [place] Potassium [Moles/Vol] 3.7 mmol/L Normal 3.5-5.1 [facility] Comment on above: Order Comment: No: D o not add to previous draw Performed By: #### 5 610, 32659 #### [facility] [address] Sodium [Moles/Vol] 139 mmol/L Normal 136-145 [facility] Comment on above: Order Comment: No: D o not add to previous draw Performed By: #### 5 610, 82874 #### [facility] [address] [place] [address], [facility] Urea nitrogen [Mass/Vol] 26 mg/dL High 7-25 [facility] Comment on above: Order Comment: No: D o not add to previous draw Performed By: #### 5 610, 19453 #### [facility] [address] [facility] [place] [address], [facility] CBC W/DIFFon 08-25-2018 ABS BASOPHILS 0.0 10*3/uL Normal 0.0-0.2 [facility] Comment on above: Order Comment: No: D o not add to previous draw Performed By: #### 5 610, 16244 #### [facility] [address] ABS IMM GRANS 0.0 10*3/uL Normal 0.0-0.2 [facility] Comment on above: Order Comment: No: D o not add to previous draw Performed By: #### 5 610, 30454 #### [facility] [address] [facility] [address] ABS NEUTROPHILS 2.3 10*3/uL Normal 1.6-7.6 [facility] Comment on above: Order Comment: No: D o not add to previous draw Performed By: #### 5 610, 07317 #### [facility] [address] [facility] [address], [facility] Basophils/100 WBC (Bld) 0.3 % Normal 0.0-1.0 [facility] Comment on above: Order Comment: No: D o not add to previous draw Performed By: #### 5 610, 73733 #### [facility] [address] [place] [address], [facility] Eosinophils (Bld) [#/Vol] 0.0 10*3/uL Normal 0.0-0.5 [facility] Comment on above: Order Comment: No: D o not add to previous draw Performed By: #### 5 6100, 29210 #### [facility] [address] [place] [address], [facility] Eosinophils/100 WBC (Bld) 0.0 % Normal 0.0-6.0 [facility] Comment on above: Order Comment: No: D o not add to previous draw Performed By: #### 5 6100, 04860 #### [facility] [address] [facility] [address] Erythrocyte distribution width (RBC) [Ratio] 13.3 % Normal 11.5-15.0 [facility] Comment on above: Order Comment: No: D o not add to previous draw Performed By: #### 5 6100, 57397 #### [facility] [address] Hematocrit (Bld) [Volume fraction] 37.7 % Normal 36.0-45.0 [facility] Comment on above: Order Comment: No: D o not add to previous draw Performed By: #### 5 6100, 01777 #### [facility] [address] [place] [address], [facility] Hemoglobin (Bld) [Mass/Vol] 12.1 g/dL Normal 12.0-15.0 [facility] Comment on above: Order Comment: No: D o not add to previous draw Performed By: #### 5 6100, 68624 #### [facility] [address] [place] [address], [facility] IMMATURE GRANS 0.2 % Normal 0.0-1.0 [facility] Comment on above: Order Comment: No: D o not add to previous draw Performed By: #### 5 6100, 13899 #### [facility] [address] [place] [address], [facility] Lymphocytes (Bld) [#/Vol] 3.0 10*3/uL Normal 1.2-4.0 [facility] Comment on above: Order Comment: No: D o not add to previous draw Performed By: #### 5 6100, 72005 #### [facility] [address] [place] [id number], [facility] Lymphocytes/100 WBC (Bld) 52.0 % High 20.0-45.0 [facility] Comment on above: Order Comment: No: D o not add to previous draw Performed By: #### 5 6100, 55574 #### [facility] [address] [place] [address], [facility] MCH (RBC) [Entitic mass] 28.7 pg Normal 27.0-33.0 [facility] Comment on above: Order Comment: No: D o not add to previous draw Performed By: #### 5 6100, 12495 #### [facility] [address] [place] [id number], [facility] MCHC (RBC) [Mass/Vol] 32.1 g/dL Normal 32.0-35.0 [facility] Comment on above: Order Comment: No: D o not add to previous draw Performed By: #### 5 6100, 36931 #### [facility] [address] [place] [address], [facility] MCV (RBC) [Entitic vol] 89.3 fL Normal 82.0-98.0 [facility] Comment on above: Order Comment: No: D o not add to previous draw Performed By: #### 5 610, 71713 #### [facility] [address] [place] [id number], [facility] Monocytes (Bld) [#/Vol] 0.5 10*3/uL Normal 0.1-1.0 [facility] Comment on above: Order Comment: No: D o not add to previous draw Performed By: #### 5 610, 79184 #### [facility] [address] [place] [address], [facility] MONOS 7.9 % Normal 5.0-12.0 [facility] Comment on above: Order Comment: No: D o not add to previous draw Performed By: #### 5 610, 96907 #### [facility] [address] [place] [address], [facility] Neutrophils/100 WBC (Bld) 39.6 % Low 40.0-72.0 [facility] Comment on above: Order Comment: No: D o not add to previous draw Performed By: #### 5 610, 73642 #### [facility] [address] [place] [address], [facility] Nucleated RBC/100 WBC (Bld) [Ratio] 0 % Normal 0-0 [facility] Comment on above: Order Comment: No: D o not add to previous draw Performed By: #### 5 610, 70717 #### [facility] [address] [place] [address], [place] PLAT CNT 236 10*3/uL Normal 150-400 [facility] Comment on above: Order Comment: No: D o not add to previous draw Performed By: #### 5 610, 22425 #### [facility] [address] [place] [address], [facility] RBC (Bld) [#/Vol] 4.22 10*6/uL Normal 3.80-5.00 [facility] Comment on above: Order Comment: No: D o not add to previous draw Performed By: #### 5 610, 44885 #### [facility] [address] [place] [address], [place] WBC (Bld) [#/Vol] 5.85 10*3/uL Normal 4.00-10.60 [facility] Comment on above: Order Comment: No: D o not add to previous draw Performed By: #### 5 6101, 97798 #### [facility] [address] [facility] [place] [address], [facility] POC GLUCOSE LABon 08-25-2018 Glucose [Mass/Vol] 180 mg/dL High 70-100 [facility] Comment on above: Performed By: #### 5 6101, 24314 #### [facility] [address] [place] [address], [facility] Glucose [Mass/Vol] 129 mg/dL High 70-100 [facility] Comment on above: Performed By: #### 5 6101, 34347 #### [facility] [address] [facility] [address], [facility] Glucose [Mass/Vol] 132 mg/dL High 70-100 [facility] Comment on above: Performed By: #### 5 0608 #### [facility] [address] [facility]. [address] UFH HEPARIN ASSAYon 08-26-19 19 UNFRACTIONATED HEPARIN <0.10 Critically low 0.30-0.70 [facility] Comment on above: Result Comment: Betty roxaban and Apixaban will interfere with the anti Xa assay used to monitor UFH and LMWH. RESULTS CHECKED AND CALLED. ACCURATELY READ BACK BY JANENE ZAMARRIPA RN AT 0554 Performed By: #### 5 6101, 59458 #### [facility] [address] [facility]. [address] BASIC METABOLIC PANELon 08-14 Calcium [Mass/Vol] 8.5 mg/dL Low 8.6-10.3 [facility] Comment on above: Order Comment: No: D o not add to previous draw Performed By: #### 5 0608 #### [facility] [address] [place] [address], [facility] Chloride [Moles/Vol] 104 mmol/L Normal 98-107 [facility] Comment on above: Order Comment: No: D o not add to previous draw Performed By: #### 5 0608 #### [facility] [address] [place] [address], [place] CO2 [Moles/Vol] 27 mmol/L Normal 21-31 [facility] Comment on above: Order Comment: No: D o not add to previous draw Performed By: #### 5 0608 #### [facility] [address] [place] [address], [place] Creatinine [Mass/Vol] 1.13 mg/dL Normal 0.60-1.20 [facility] Comment on above: Order Comment: No: D o not add to previous draw Performed By: #### 5 0608 #### [facility] [address] [place] [address], [place] GFR/1.73 sq M predicted among blacks MDRD (S/P/Bld) [Vol rate/Area] mL/min/{1.73_m2} Normal >60 [facility] Comment on above: Order Comment: No: D o not add to previous draw Performed By: #### 5 0608 #### [facility] [address] [place] [address], [place] GFR/1.73 sq M predicted among non-blacks MDRD (S/P/Bld) [Vol rate/Area] 52 ml/min/1.73sq m Abnormal >60 [facility] Comment on above: Order Comment: No: D o not add to previous draw Performed By: #### 5 0608 #### [facility] [address] [place] [address], [place] Glucose [Mass/Vol] 131 mg/dL High 70-100 [facility] Comment on above: Order Comment: No: D o not add to previous draw Performed By: #### 5 0608 #### [facility] [address] [place] [address], [place] Potassium [Moles/Vol] 3.9 mmol/L Normal 3.5-5.1 [facility] Comment on above: Order Comment: No: D o not add to previous draw Performed By: #### 5 0608 #### [facility] [address] [place] [address], [facility] Sodium [Moles/Vol] 141 mmol/L Normal 136-145 [facility] Comment on above: Order Comment: No: D o not add to previous draw Performed By: #### 5 0608 #### [facility] [address] [place] [address], [facility] Urea nitrogen [Mass/Vol] 28 mg/dL High 7-25 [facility] Comment on above: Order Comment: No: D o not add to previous draw Performed By: #### 5 0608 #### [facility] [address] [place] [id number] CBC COMPLETE BLOOD COUNT- Erythrocyte distribution width (RBC) [Ratio] 13.5 % Normal 11.5-15.0 [facility] Comment on above: Order Comment: No: D o not add to previous draw Performed By: #### 5 0608 #### [facility] [address] [place] [address], [facility] Hematocrit (Bld) [Volume fraction] 37.1 % Normal 36.0-45.0 [facility] Comment on above: Order Comment: No: D o not add to previous draw Performed By: #### 5 0608 #### [facility] [address] [place] [address], [facility] Hemoglobin (Bld) [Mass/Vol] 12.2 g/dL Normal 12.0-15.0 [facility] Comment on above: Order Comment: No: D o not add to previous draw Performed By: #### 5 0608 #### [facility] [address] [place] [address], [facility] MCH (RBC) [Entitic mass] 28.8 pg Normal 27.0-33.0 [facility] Comment on above: Order Comment: No: D o not add to previous draw Performed By: #### 5 0608 #### [facility] [address] [place] [id number], [facility] MCHC (RBC) [Mass/Vol] 32.9 g/dL Normal 32.0-35.0 [facility] Comment on above: Order Comment: No: D o not add to previous draw Performed By: #### 5 0608 #### [facility] [address] [place] [id number], [facility] MCV (RBC) [Entitic vol] 87.7 fL Normal 82.0-98.0 [facility] Comment on above: Order Comment: No: D o not add to previous draw Performed By: #### 5 0608 #### [facility] [address] [place] [address], [facility] Nucleated RBC/100 WBC (Bld) [Ratio] 0 % Normal 0-0 [facility] Comment on above: Order Comment: No: D o not add to previous draw Performed By: #### 5 0608 #### [facility] [address] [facility] [place] [id number], [facility] PLAT CNT 251 10*3/uL Normal 150-400 [facility] Comment on above: Order Comment: No: D o not add to previous draw Performed By: #### 5 0608 #### [facility] [address] [facility] [address], [facility] RBC (Bld) [#/Vol] 4.23 10*6/uL Normal 3.80-5.00 [facility] Comment on above: Order Comment: No: D o not add to previous draw Performed By: #### 5 0608 #### [facility] [address] [place] [id number], [facility] WBC (Bld) [#/Vol] 8.42 10*3/uL Normal 4.00-10.60 [facility] Comment on above: Order Comment: No: D o not add to previous draw Performed By: #### 5 0608 #### [facility] [address] Cardiovascular Lab Reporton 08-24-2018 Cardiovascular Lab Report [facility] Patient Name: Sherly Humphreys [facility] MR #: [id number] Department of Physician: Marshall Torres M.D. Division of Service Date: 08/23/2018 Cardiology Birthdate: 1970 Adult Cardiovascular Room #: 3AB 166020 Services [facility] [address] [place], [place] [address] Cardiovascular Laboratory Report FINAL IMPRESSION: 1. Mild [...] 5. Follow up with me in the [facility] post discharge. 6. Further recommendations deferred [...] the left radial artery was obtained. A 6-Albanian Glidesheath was inserted without difficulty. Bilateral selective [...] 30% stenosis adjacent to a prominent septal desk assistant. There are luminal irregularities throughout the remainder [...] Godoy M.D. Date Trans: 08/24/2018 06:37 Amanda/yadira [id number] cc: Geovanni Brunner D.O. [address] [place] [address] Normal [facility] HIP RIGHT 1 OR 2 VWS WITH PE LVISon 08-24-2018 HIP RIGHT 1 OR 2 VWS WITH PELVIS [facility] Department of Radiology [address] [place] [id number] Patient Name: SHERLY HUMPHREYS : 1970 Sex: F Age: Race: White Pt. Location: [address] [place] [address] Patient Status: D Ordered Date: 08/24/2018 12:30:00 [...] findings. Electronically signed by:Kristy Jones. Transcribed by: [email or web address], User Resident: [email or web address] Electronically Signed by: KRISTY JONES @ 08/25/2018 08:05 PM I personally read this/these film(s) with this resident Normal [facility] Comment on above: Order Comment: No: D o not add to previous draw POC GLUCOSE LABon 08-24-2018 Glucose [Mass/Vol] 125 mg/dL High 70-100 [facility] Comment on above: Performed By: #### 5 0608 #### [facility] [address] [facility]. [address] Glucose [Mass/Vol] 150 mg/dL High 70-100 [facility] Comment on above: Performed By: #### 5 0608 #### [facility] [address] [facility]. [address] Glucose [Mass/Vol] 119 mg/dL High 70-100 [facility] Comment on above: Performed By: #### 5 0608 #### [facility] [address] UFH HEPARIN ASSAYon 08-25-19 19 UNFRACTIONATED HEPARIN <0.10 Critically low 0.30-0.70 [facility] Comment on above: Result Comment: Betty roxaban and Apixaban will interfere with the anti Xa assay used to monitor UFH and LMWH. RESULTS CHECKED AND CALLED. ACCURATELY READ BACK BY JANENE ZAMARRIPA RN AT 0732 Performed By: #### 5 0608 #### [facility] [address] APTTon 08-23-2018 aPTT Coag (Bld) [Time] 38.8 s High 25.0-35.0 Th e [facility] Comment on above: Order Comment: No: [...] THIS PURPOSE. Performed By: #### 5 6101, 85217 #### [facility] [address] CBC COMPLETE BLOOD COUNTon 0 08-23-2018 Erythrocyte distribution width (RBC) [Ratio] 13.3 % Normal 11.5-15.0 The [facility] Comment on above: Order Comment: No: D o not add to previous draw Performed By: #### [id number] #### [facility] [address] [place] [id number], [facility] Hematocrit (Bld) [Volume fraction] 41.4 % Normal 36.0-45.0 [facility] Comment on above: Order Comment: No: D o not add to previous draw Performed By: #### 5 [id number] #### [facility] [address] [place] [address], [facility] Hemoglobin (Bld) [Mass/Vol] 13.8 g/dL Normal 12.0-15.0 [facility] Comment on above: Order Comment: No: D o not add to previous draw Performed By: #### 5 [id number] #### [facility] [address] [place] [address], [facility] MCH (RBC) [Entitic mass] 29.0 pg Normal 27.0-33.0 [facility] Comment on above: Order Comment: No: D o not add to previous draw Performed By: #### 5 [id number] #### [facility] [address] [place] [id number], [facility] MCHC (RBC) [Mass/Vol] 33.3 g/dL Normal 32.0-35.0 The [facility] Comment on above: Order Comment: No: D o not add to previous draw Performed By: #### 5 [id number] #### [facility] [address] [place] [address], [place] MCV (RBC) [Entitic vol] 87.0 fL Normal 82.0-98.0 The [facility] Comment on above: Order Comment: No: D o not add to previous draw Performed By: #### 5 [id number] #### [facility] [address] [place] [id number], [facility] Nucleated RBC/100 WBC (Bld) [Ratio] 0 % Normal 0-0 [facility] Comment on above: Order Comment: No: D o not add to previous draw Performed By: #### 5 [id number] #### [facility] [address] [place] [address], [facility] PLAT CNT 293 10*3/uL Normal 150-400 [facility] Comment on above: Order Comment: No: D o not add to previous draw Performed By: #### 5 [id number] #### [facility] [address] [place] [address], [facility] RBC (Bld) [#/Vol] 4.76 10*6/uL Normal 3.80-5.00 The [facility] Comment on above: Order Comment: No: D o not add to previous draw Performed By: #### 5 [id number] #### [facility] [address] [place] [address], [facility] WBC (Bld) [#/Vol] 10.48 10*3/uL Normal 4.00-10.60 The [facility] Comment on above: Order Comment: No: D o not add to previous draw Performed By: #### 5 [id number] #### [facility] [address] History and Physicalon 08-23 History and Physical MR#: [id number] [facility] Pt. Name: Sherly Humphreys Admitted: 08/23/2018 Date of : 1970 Attending Physician: Nini Valente MD Room #: 3AB [id number] Discharge Date: HISTORY AND PHYSICAL CHIEF COMPLAINT: [...] she went to the emergency department in [facility]. Initial evaluation included troponin and EKG, which were negative. The patient was started on nitroglycerin patch. She experienced some relief after starting the nitroglycerin patch. Her pain went down from 8 to 6/10. Given her significant cardiac history, the patient was transferred to [facility] for further evaluation. The [...] with no ST-T wave changes. Troponin from [facility] was 0.01. Pending troponin in our facility. [...] Valente MD Date Trans: 08/23/2018 06:27 Amanda/yadira [id number] Normal The [facility] POC GLUCOSE LABon 08-23-2018 Glucose [Mass/Vol] 101 mg/dL High 70-100 The [facility] Comment on above: Performed By: #### 5 [id number] #### [facility] [address] [place] [address], [facility] Glucose [Mass/Vol] 96 mg/dL Normal 70-100 The [facility] Comment on above: Performed By: #### 5 [id number] #### [facility] [address] [place] [address], [place] Glucose [Mass/Vol] 134 mg/dL High 70-100 The [facility] Comment on above: Performed By: #### 8 [id number] #### [facility] [address] [facility] [address] Glucose [Mass/Vol] 164 mg/dL High 70-100 The [facility] Comment on above: Performed By: #### 8 [id number] #### [facility] [address] [facility]. [address] PROTHROMBIN TIMEon 9 INR Coag (PPP) [Relative time] 1.06 {INR} Normal 0.91-1.16 The [facility] Comment on above: Order Comment: No: [...] CHEST 1995;[id number]. Performed By: #### 5 6101, [id number] #### [facility] [address] [place] [address], [facility] PT Coag (PPP) [Time] 13.8 s Normal 12.3-14.8 The [facility] Comment on above: Order Comment: No: D o not add to previous draw Result Comment: ALL RESULTS MUST BE INTERPRETED WITH RESPECT TO BLOOD DRAWING ARTIFACT OR DILUTION ERROR OF ANTICOAGULANT AT THE TIME OF SAMPLING. Performed By: #### 5 [id number], [id number] #### [facility] [address] SERUM TESTon 08-23 TEST Negative Normal [facility] Comment on above: Order Comment: Yes: Add to Previous draw if able Performed By: #### 4 [id number] #### [address] TROPONIN-Ion 08-23-2018 Troponin I.cardiac [Mass/Vol] 0.01 ng/mL Normal 0.00-0.04 [facility] Comment on above: Order Comment: No: D o not add to previous draw Result Comment: REFE RENCE RANGES: 0.00 - 0.04 ng/ml NORMAL 0.05 - 0.50 ng/ml INDETERMINATE > 0.50 ng/ml CONSISTENT WITH AN M.I. Performed By: #### 3 5200 #### [facility] [address] UFH HEPARIN ASSAYon 08-24-19 19 UNFRACTIONATED HEPARIN 0.42 IU/mL Normal 0.30-0.70 Th e [facility] Comment on above: Order Comment: per beatriz schneider Result Comment: [place] roxaban and Apixaban will interfere with the anti Xa assay used to monitor UFH and LMWH. Performed By: #### 3 0477 #### [address] UNFRACTIONATED HEPARIN 0.29 IU/mL Low 0.30-0.70 Th e [facility] Comment on above: Result Comment: [place] roxaban and Apixaban will interfere with the anti Xa assay used to monitor UFH and LMWH. Performed By: #### 3 0477 #### [facility] [address] [place] [address], [facility] US GALLBLADDERon 08-23-2018 US GALLBLADDER [facility] Department of Radiology [address] [place] [id number] Patient Name: SHERLY HUMPHREYS : 1970 Sex: F Age: Race: White Pt. Location: [id number] Patient Status: I Ordered Date: 08/23/2018 11:30:00 [...] gallbladder. Electronically signed by:Nathan Mauricio. Transcribed by: [email or web address], User Resident: Electronically Signed by: NATHAN MAURICIO @ 08/23/2018 03:33 PM Normal [facility] Comment on above: Order Comment: No: D o not add to previous draw Vital Signs Date Time Vital Sign Value Performing Clinician Facility 06-16-2024 09:07-0500 Body height 170.2 cm Marya Petznick DO Work Phone: [facility] 06-16-2024 09:07-0500 Body mass index (BMI) [Ratio] 38.37 kg/m2 Marya Petznick DO Work Phone: [facility] 06-16-2024 09:07-0500 Body temperature 98.2 [degF] Marya Petznick DO Work Phone: [facility] 06-16-2024 09:07-0500 Body weight 111.13 kg Marya Petznick DO Work Phone: [facility] 06-16-2024 09:07-0500 Diastolic blood pressure 82 mm[Hg] Marya Petznick DO Work Phone: [facility] 06-16-2024 09:07-0500 Heart rate 61 /min Marya Petznick DO Work Phone: [facility] 06-16-2024 09:07-0500 SaO2% (BldA) [Mass fraction] 97 % Marya Petznick DO Work Phone: [facility] 06-16-2024 09:07-0500 Systolic blood pressure 136 mm[Hg] Marya Petznick DO Work Phone: [facility] 03-06-2024 09:28-0500 Body height 170.2 cm Janene Lew CORE MACHINE OPERATOR Work Phone: [facility] 03-06-2024 09:28-0500 Body mass index (BMI) [Ratio] 40.69 kg/m2 Janene Lew CORE MACHINE OPERATOR Work Phone: [facility] 03-06-2024 09:28-0500 Body temperature 98.49 [degF] Janene Lew CORE MACHINE OPERATOR Work Phone: [facility] 03-06-2024 09:28-0500 Body weight 117.84 kg Janene Lew CORE MACHINE OPERATOR Work Phone: [facility] 03-06-2024 09:28-0500 Diastolic blood pressure 84 mm[Hg] Janene Lew CORE MACHINE OPERATOR Work Phone: [facility] 03-06-2024 09:28-0500 Heart rate 60 /min Janene Lew CORE MACHINE OPERATOR Work Phone: [facility] 03-06-2024 09:28-0500 Respiratory rate 20 /min Janene Lew CORE MACHINE OPERATOR Work Phone: [facility] 03-06-2024 09:28-0500 SaO2% (BldA) [Mass fraction] 96 % Janene Lew CORE MACHINE OPERATOR Work Phone: [facility] 03-06-2024 09:28-0500 Systolic blood pressure 132 mm[Hg] Janene Lew CORE MACHINE OPERATOR Work Phone: [facility] 02-19-2024 09:23-0500 Body height 162.6 cm Marya Petznick DO Work Phone: [facility] 02-19-2024 09:23-0500 Body mass index (BMI) [Ratio] 46.86 kg/m2 Marya Petznick DO Work Phone: [facility] 02-19-2024 09:23-0500 Body temperature 96.8 [degF] Marya Petznick DO Work Phone: [facility] 02-19-2024 09:23-0500 Body weight 123.83 kg Marya Petznick DO Work Phone: [facility] 02-19-2024 09:23-0500 Diastolic blood pressure 82 mm[Hg] Marya Petznick DO Work Phone: [facility] 02-19-2024 09:23-0500 Heart rate 56 /min Marya Petznick DO Work Phone: [facility] 02-19-2024 09:23-0500 SaO2% (BldA) [Mass fraction] 97 % Marya Petznick DO Work Phone: [facility] 02-19-2024 09:23-0500 Systolic blood pressure 130 mm[Hg] Marya Petznick DO Work Phone: [facility] 12-05-2023 08:35-0400 Body height 162.6 cm Janene Aichholz CORE MACHINE OPERATOR Work Phone: [facility] 12-05-2023 08:35-0400 Body mass index (BMI) [Ratio] 49.06 kg/m2 Janene Aichholz CORE MACHINE OPERATOR Work Phone: [facility] 12-05-2023 08:35-0400 Body temperature 98.71 [degF] Janene Aichholz CORE MACHINE OPERATOR Work Phone: [facility] 12-05-2023 08:35-0400 Body weight 129.64 kg Janene Aichholz CORE MACHINE OPERATOR Work Phone: [facility] 12-05-2023 08:35-0400 Diastolic blood pressure 88 mm[Hg] Janene Aichholz CORE MACHINE OPERATOR Work Phone: [facility] 12-05-2023 08:35-0400 Heart rate 66 /min Janene Aichholz CORE MACHINE OPERATOR Work Phone: [facility] 12-05-2023 08:35-0400 Respiratory rate 20 /min Janene Aichholz CORE MACHINE OPERATOR Work Phone: [facility] 12-05-2023 08:35-0400 SaO2% (BldA) [Mass fraction] 98 % Janene Aichholz CORE MACHINE OPERATOR Work Phone: [facility] 12-05-2023 08:35-0400 Systolic blood pressure 122 mm[Hg] Janene Aichholz CORE MACHINE OPERATOR Work Phone: [facility] 11-01-2023 11:00-0400 Diastolic blood pressure 83 mm[Hg] Janene Aichholz Work Phone: [facility] 11-01-2023 11:00-0400 Heart rate 52 /min Janene Aichholz Work Phone: [facility] 11-01-2023 11:00-0400 Respiratory rate 16 /min Janene Aichholz Work Phone: [facility] 11-01-2023 11:00-0400 SaO2% (BldA) [Mass fraction] 98 % Janene Aichholz Work Phone: [facility] 11-01-2023 11:00-0400 Systolic blood pressure 144 mm[Hg] Janene Aichholz Work Phone: [facility] 11-01-2023 10:30-0400 Inhaled oxygen flow rate 8 L/min Janene Aichholz Work Phone: [facility] 11-01-2023 07:28-0400 Body height 162.56 cm Janene Aichholz Work Phone: [facility] 11-01-2023 07:28-0400 Body temperature 97.9 [degF] Janene Aichholz Work Phone: [facility] 11-01-2023 07:28-0400 Body weight 129.72 kg Janene Aichholz Work Phone: [facility] 10-16-2023 13:05-0400 Body height 162.56 cm Janene Aichholz Work Phone: [facility] 10-16-2023 13:05-0400 Body mass index (BMI) [Ratio] 51.5 kg/m2 Janene Aichholz Work Phone: [facility] 10-16-2023 13:05-0400 Body temperature 97.3 [degF] Janene Aichholz Work Phone: [facility] 10-16-2023 13:05-0400 Body weight 136.3 kg Janene Aichholz Work Phone: [facility] 10-16-2023 13:05-0400 Diastolic blood pressure 76 mm[Hg] Janene Aichholz Work Phone: [facility] 10-16-2023 13:05-0400 Heart rate 69 /min Janene Aichholz Work Phone: [facility] 10-16-2023 13:05-0400 Respiratory rate 18 /min Janene Aichholz Work Phone: [facility] 10-16-2023 13:05-0400 SaO2% (BldA) [Mass fraction] 99 % Janene Aichholz Work Phone: [facility] 10-16-2023 13:05-0400 Systolic blood pressure 125 mm[Hg] Janene Aichholz Work Phone: [facility] 10-02-2023 08:00-0400 Body temperature 97.9 [degF] Janene Aichholz Work Phone: [facility] 10-02-2023 08:00-0400 Diastolic blood pressure 82 mm[Hg] Janene Aichholz Work Phone: [facility] 10-02-2023 08:00-0400 Heart rate 58 /min Janene Aichholz Work Phone: [facility] 10-02-2023 08:00-0400 Respiratory rate 16 /min Janene Aichholz Work Phone: [facility] 10-02-2023 08:00-0400 SaO2% (BldA) [Mass fraction] 100 % Janene Aichholz Work Phone: [facility] 10-02-2023 08:00-0400 Systolic blood pressure 138 mm[Hg] Janene Aichholz Work Phone: [facility] 10-02-2023 05:02-0400 Body weight 139.8 kg Janene Aichholz Work Phone: [facility] 10-01-2023 05:34-0400 Body height 162.56 cm Janene Aichholz Work Phone: [facility] 08-15-2023 10:02-0400 Body height 162.56 cm Janene Aichholz Work Phone: [facility] 08-15-2023 10:02-0400 Body mass index (BMI) [Ratio] 54.6 kg/m2 Janene Aichholz Work Phone: [facility] 08-15-2023 10:02-0400 Body temperature 96.9 [degF] Janene Aichholz Work Phone: [facility] 08-15-2023 10:02-0400 Body weight 144.24 kg Janene Aichholz Work Phone: [facility] 08-15-2023 10:02-0400 Diastolic blood pressure 77 mm[Hg] Janene Aichholz Work Phone: [facility] 08-15-2023 10:02-0400 Heart rate 59 /min Janene Aichholz Work Phone: [facility] 08-15-2023 10:02-0400 Respiratory rate 18 /min Janene Aichholz Work Phone: [facility] 08-15-2023 10:02-0400 SaO2% (BldA) [Mass fraction] 98 % Janene Aichholz Work Phone: [facility] 08-15-2023 10:02-0400 Systolic blood pressure 130 mm[Hg] Janene Aichholz Work Phone: [facility] 08-14-2022 10:15-0400 Body height 162.56 cm Ivan Sams Other [facility] Other 08-14-2022 10:15-0400 Body mass index (BMI) [Ratio] 51.63 kg/m2 Ivan Sams Other [facility] Other 08-14-2022 10:15-0400 Body weight 136.44 kg Ivan Sams Other [facility] Other 08-14-2022 10:15-0400 Diastolic blood pressure 80 mm[Hg] Ivan Latrell Other [facility] Other 08-14-2022 10:15-0400 SaO2% (BldA) [Mass fraction] 99 % Ivan Sams Other [facility] Other 08-14-2022 10:15-0400 Systolic blood pressure 140 mm[Hg] Ivan Sams Other [facility] Other 07-03-2022 12:30-0400 Body height 162.56 cm Ivan Sams Other [facility] Other 07-03-2022 12:30-0400 Body mass index (BMI) [Ratio] 51.39 kg/m2 Ivan Sams Other [facility] Other 07-03-2022 12:30-0400 Body weight 135.81 kg Ivan Sams Other [facility] Other 07-03-2022 12:30-0400 Diastolic blood pressure 84 mm[Hg] Ivan Sams Other [facility] Other 07-03-2022 12:30-0400 SaO2% (BldA) [Mass fraction] 99 % Ivan Sams Other [facility] Other 07-03-2022 12:30-0400 Systolic blood pressure 142 mm[Hg] Ivan Sams Other [facility] Other 06-24-2022 15:59-0500 Body height 162.56 cm Janene Aichholz Work Phone: [facility] 06-24-2022 15:59-0500 Body temperature 98.2 [degF] Janene Aichholz Work Phone: [facility] 06-24-2022 15:59-0500 Body weight 134.4 kg Janene Aichholz Work Phone: [facility] 06-24-2022 15:59-0500 Diastolic blood pressure 95 mm[Hg] Janene Aichholz Work Phone: [facility] 06-24-2022 15:59-0500 Heart rate 94 /min Janene Aichholz Work Phone: [facility] 06-24-2022 15:59-0500 Respiratory rate 20 /min Janene Aichholz Work Phone: [facility] 06-24-2022 15:59-0500 SaO2% (BldA) [Mass fraction] 96 % Janene Aichholz Work Phone: [facility] 06-24-2022 15:59-0500 Systolic blood pressure 187 mm[Hg] Janene Aichholz Work Phone: [facility] 05-12-2022 12:00-0500 Body height 162.56 cm Christian Hamilton Other [facility] [employer] Other 05-12-2022 12:00-0500 Body mass index (BMI) [Ratio] 51.94 kg/m2 Christian Hamilton Other [facility] [employer] Other 05-12-2022 12:00-0500 Body weight 137.26 kg Christian Hamilton Other [facility] [employer] Other 04-25-2022 12:20-0500 Body height 162.56 cm Halle Webers Other [facility] Other 04-25-2022 12:20-0500 Body mass index (BMI) [Ratio] 51.94 kg/m2 Azaurelia Bakhous Other [facility] Other 04-25-2022 12:20-0500 Body temperature 97.5 [degF] Halle Webers Other [facility] Other 04-25-2022 12:20-0500 Body weight 137.26 kg Halle Webers Other [facility] Other 04-25-2022 12:20-0500 Diastolic blood pressure 80 mm[Hg] Halle Webers Other [facility] Other 04-25-2022 12:20-0500 Respiratory rate 18 /min Halle Webers Other [facility] Other 04-25-2022 12:20-0500 SaO2% (BldA) [Mass fraction] 97 % Halle Webers Other [facility] Other 04-25-2022 12:20-0500 Systolic blood pressure 140 mm[Hg] Aziz Tias Other [facility] Other 01-25-2022 16:15-0400 Body height 162.56 cm Emma Bolivar Other [facility] Other 01-25-2022 16:15-0400 Body mass index (BMI) [Ratio] 52.78 kg/m2 Emma Bolivar Other [facility] Other 01-25-2022 16:15-0400 Body temperature 97.1 [degF] Emma Bolivar Other [facility] Other 01-25-2022 16:15-0400 Body weight 139.48 kg Emma Bolivar Other [facility] Other 01-25-2022 16:15-0400 Diastolic blood pressure 70 mm[Hg] Emma Bolivar Other [facility] Other 01-25-2022 16:15-0400 SaO2% (BldA) [Mass fraction] 98 % Emma Bolivar Other [facility] Other 01-25-2022 16:15-0400 Systolic blood pressure 142 mm[Hg] Emma Bolivar Other [facility] Other 12-06-2021 12:20-0400 Body height 162.56 cm Christian Hamilton Other [facility] Other 12-06-2021 12:20-0400 Body mass index (BMI) [Ratio] 46.34 kg/m2 Christian Hamilton Other [facility] Other 12-06-2021 12:20-0400 Body weight 122.47 kg Christian Hamilton Other [facility] Other 11-10-2021 16:20-0400 Body height 162.56 cm Christian Hamilton Other [facility] Other 11-10-2021 16:20-0400 Body mass index (BMI) [Ratio] 46.34 kg/m2 Christian Hamilton Other [facility] Other 11-10-2021 16:20-0400 Body weight 122.47 kg Christian Hamilton Other [facility] Other 09-29-2021 14:00-0400 Body height 162.56 cm Christian Hamilton Other [facility] Other 09-29-2021 14:00-0400 Body mass index (BMI) [Ratio] 46 kg/m2 Christian Hamilton Other [facility] Other 09-29-2021 14:00-0400 Body weight 121.56 kg Christian Hamilton Other [facility] Other 08-30-2021 15:40-0400 Body height 162.56 cm Christian Hamilton Other [facility] Other 08-30-2021 15:40-0400 Body mass index (BMI) [Ratio] 46 kg/m2 Christian Hamilton Other [facility] Other 08-30-2021 15:40-0400 Body weight 121.56 kg Christian Hamilton Other [facility] Other Encounters Encounter Date Encounter Type Care Provider Facility Start: 06-16-2024 End: 06-16-2024 Bamboo flowsheet Marya Castorena DO Work Phone: [facility] Start: 06-16-2024 End: 06-16-2024 Bamboo flowsheet Marya Castorena DO Work Phone: [facility] Start: 06-16-2024 End: 06-16-2024 Office outpatient visit 25 minutes Marya Castorena DO Work Phone: [facility] Comment on above: Class 2 severe obesi ty due to excess calories with serious comorbidity and body mass index (BMI) of 38.0 to 38.9 in adult ([facility]) (Primary Dx); Type 2 diabetes mellitus with other circulatory complications ([facility]); Type 2 diabetes mellitus with stage 3a chronic kidney disease, without long-term current use of insulin (HCC) ([facility]) Start: 06-16-2024 End: 06-16-2024 ambulatory MARYA CASTORENA Not Available Start: 05-27-2024 End: 05-27-2024 Refill Janene Aichholz CORE MACHINE OPERATOR Work Phone: [facility] Comment on above: Muscle spasm Start: 03-27-2024 ambulatory Valdemar Celeste Facility:[facility] Start: 03-20-2024 End: 03-21-2024 Refill Janene Aichholz CORE MACHINE OPERATOR Work Phone: [facility] Comment on above: Restless leg syndrom e Start: 03-11-2024 End: 03-11-2024 ambulatory Azaurelia Bakmichaels Facility:[facility] Start: 03-06-2024 End: 03-06-2024 Bamboo flowsheet Janene Aichholz CORE MACHINE OPERATOR Work Phone: [facility] Start: 03-06-2024 End: 03-06-2024 Bamboo flowsheet Janene Aichholz CORE MACHINE OPERATOR Work Phone: [facility] Start: 03-06-2024 End: 03-06-2024 Office outpatient visit 25 minutes Janene Louann CORE MACHINE OPERATOR Work Phone: [facility] Comment on above: Primary hypertension ([facility]) (Primary Dx); Spinal stenosis of lumbar region at multiple levels; Restless leg syndrome; URIEL (obstructive sleep apnea); Coronary arteriosclerosis ([facility]); Stage 3b chronic kidney disease (HCC) ([facility]); Swelling of both lower extremities; Lower extremity edema; Type 2 diabetes mellitus with stage 3a chronic kidney disease, without long-term current use of insulin (HCC) ([facility]); Class 3 severe obesity due to excess calories with serious comorbidity and body mass index (BMI) of 45.0 to 49.9 in adult ([facility]); Bipolar affective disorder, remission status unspecified ([facility]); Generalized anxiety disorder ([facility]); Vitamin D deficiency; Vitamin B12 deficiency; H/O bariatric surgery; Acute non-recurrent pansinusitis Start: 03-06-2024 End: 03-06-2024 ambulatory JANENE AICHHOLZ Not Available Start: 02-22-2024 End: 02-25-2024 Refill Janene Aichholz CORE MACHINE OPERATOR Work Phone: [facility] Comment on above: Muscle spasm Start: 02-19-2024 End: 02-19-2024 Office outpatient visit 25 minutes Marya Castorena DO Work Phone: [facility] Comment on above: Type 2 diabetes chidi itus with other circulatory complications ([facility]) (Primary Dx); Type 2 diabetes mellitus with stage 4 chronic kidney disease, without long-term current use of insulin ([facility]); Type 2 diabetes mellitus with stage 3a chronic kidney disease, without long-term current use of insulin ([facility]) ([facility]); Class 3 severe obesity due to excess calories with serious comorbidity and body mass index (BMI) of 45.0 to 49.9 in adult ([facility]) Start: 02-19-2024 End: 02-19-2024 ambulatory MARYA Andrade RAFFAELE Not Available Start: 01-14-2024 End: 01-14-2024 Refill Janene Aichholz CORE MACHINE OPERATOR Work Phone: [facility] Comment on above: Primary hypertension ([facility]) Start: 12-19-2023 End: 12-19-2023 Refill Janene Aichholz CORE MACHINE OPERATOR Work Phone: [facility] Comment on above: Type 2 diabetes chidi itus with stage 4 chronic kidney disease, without long-term current use of insulin ([facility]) (Primary Dx) Start: 12-18-2023 End: 12-18-2023 Clinisync Result Encounter Janene Aichholz CORE MACHINE OPERATOR Work Phone: [facility] External Department Unsolicited Start: 12-18-2023 End: 12-18-2023 Clinisync Result Encounter Janene Aichholz CORE MACHINE OPERATOR Work Phone: [facility] External Department Unsolicited Start: 12-18-2023 End: 12-18-2023 Refill Janene Lew CORE MACHINE OPERATOR Work Phone: [facility] Comment on above: Restless leg syndrom e Start: 12-18-2023 End: 12-18-2023 ambulatory [facility] Comment on above: Antibiotic-induced y east infection (Primary Dx) Start: 12-05-2023 End: 12-05-2023 Bamboo flowsheet Janene Lew CORE MACHINE OPERATOR Work Phone: [facility] Start: 12-05-2023 End: 12-05-2023 Bamboo flowsheet Janeneamanda Lew CORE MACHINE OPERATOR Work Phone: [facility] Start: 12-05-2023 End: 12-07-2023 Refill Janeneamanda Lew CORE MACHINE OPERATOR Work Phone: [facility] Comment on above: Muscle spasm Start: 12-05-2023 End: 12-05-2023 Office outpatient visit 25 minutes Janene Lew CORE MACHINE OPERATOR Work Phone: [facility] Comment on above: Left lower quadrant abdominal pain (Primary Dx); Morbid (severe) obesity due to excess calories (CMS/HCC); Body mass index (BMI) 45.0-49.9, adult (CMS/HCC); Restless leg syndrome; Stage 3b chronic kidney disease (HCC) (CMS/HCC) Start: 12-05-2023 End: 12-05-2023 ambulatory JANENE LOUANN Not Available Start: 12-03-2023 End: 12-03-2023 ambulatory Elza Conway MD Facility:[facility] Start: 11-19-2023 End: 11-19-2023 ambulatory MARYA CASTORENA Not Available Start: 11-12-2023 End: 11-13-2023 ambulatory [facility] Start: 11-01-2023 End: 11-01-2023 Admission to same day surgery center Janene Aichholz Work Phone: [facility] [place] Start: 11-01-2023 End: 11-01-2023 ambulatory Janeneamanda Jonesholz Work Phone: [facility] Work Phone: Start: 10-29-2023 Registered Recurring Janene adamsz Work Phone: [facility] Start: 10-24-2023 End: 10-24-2023 ambulatory JANENEAmanda JONESHOLZ Not Available Start: 10-16-2023 End: 10-16-2023 ambulatory Janene J Karenholz Work Phone: [facility] Work Phone: Start: 10-16-2023 End: 10-16-2023 Patient encounter procedure Janene Jonesholz Work Phone: [facility] Work Phone: Start: 10-16-2023 Registered Recurring Janene espitia Work Phone: [facility] Start: 10-11-2023 End: 10-11-2023 Patient encounter procedure Janene Jonesholgabo Work Phone: [facility] [place] Work Phone: Start: 10-11-2023 End: 10-11-2023 ambulatory Janene Moses Jonesholz Work Phone: [facility] Work Phone: Start: 10-01-2023 Non-patient / Non-visit Janene A erendiraz Work Phone: [facility] Work Phone: Start: 10-01-2023 End: 10-02-2023 Evaluation and management of inpatient Janene Reddpanchitoholz Work Phone: [facility] [place] [facility] Work Phone: Start: 09-24-2023 End: 09-24-2023 ambulatory Elza Conway MD Facility:[facility] Start: 09-20-2023 End: 09-20-2023 ambulatory NUNEZ TYLER Not Available Start: 09-14-2023 End: 09-14-2023 ambulatory BAN CLEMENTE V Not Available Start: 09-13-2023 End: 09-13-2023 ambulatory JANENE KARENHOLZ Not Available Start: 09-11-2023 End: 09-11-2023 ambulatory [facility] Start: 09-03-2023 Registered Recurring Janene espitia Work Phone: [facility] Start: 08-15-2023 End: 08-15-2023 Patient encounter procedure Janene Lew Work Phone: [facility] Work Phone: Start: 08-10-2023 End: 08-10-2023 Patient encounter procedure Janene Lew Work Phone: [facility] [place] Work Phone: Start: 08-10-2023 End: 08-10-2023 ambulatory Janene Lew Work Phone: [facility] Work Phone: Start: 07-09-2023 End: 07-09-2023 ambulatory Elza Conway MD Facility:[facility] Start: 07-03-2023 End: 07-03-2023 ambulatory JESSICA GASPAR Not Available Start: 07-02-2023 End: 07-02-2023 ambulatory JANENE AICHHOLZ Not Available Start: 06-26-2023 End: 06-26-2023 ambulatory BAN CLEMENTE V Not Available Start: 06-19-2023 End: 06-19-2023 Patient encounter procedure Janene Lew Work Phone: [facility] [place] Work Phone: Start: 06-19-2023 End: 06-19-2023 ambulatory Fauzia Monzonkristyn Facility:[facility] Start: 05-25-2023 End: 05-25-2023 ambulatory MARKEL HAQ Facility:[facility] Start: 05-17-2023 End: 05-17-2023 Patient encounter procedure Janene Lew Work Phone: [facility] [place] Work Phone: Start: 05-17-2023 End: 05-17-2023 ambulatory Janene Lew Work Phone: [facility] Work Phone: Start: 03-15-2023 Registered Recurring Janene Karen espitia Work Phone: [facility] Start: 03-14-2023 End: 03-14-2023 ambulatory EHAB [facility] Start: 02-19-2023 End: 02-19-2023 ambulatory Elza Conway MD Facility: [facility] Start: 01-01-2023 End: 01-01-2023 ambulatory [facility] Start: 11-29-2022 End: 11-29-2022 ambulatory Halle Mac Other [employer] [facility] [employer] Other Start: 11-29-2022 Telephone encounter Halle Mac [facility] Start: 09-18-2022 End: 09-18-2022 ambulatory Ivan Sams Other [facility] Other Start: 09-18-2022 Telephone encounter Ivan Sams [facility] Start: 09-07-2022 End: 09-07-2022 ambulatory UX DESIGN MANAGER JANENE LEW Facility:[facility] Start: 08-14-2022 End: 08-14-2022 ambulatory Ivan Sams Other [facility] Other Start: 08-14-2022 Office outpatient vi sit 25 minutes Ivanying Sams [facility] Start: 07-03-2022 End: 07-03-2022 ambulatory Ivan Sams Other [facility] Other Start: 07-03-2022 Office consultation new/estab patient 60 min Ivanying Sams [facility] Start: 06-24-2022 End: 06-24-2022 Emergency department patient visit Janene Lew Work Phone: [facility] Work Phone: Start: 06-08-2022 End: 06-09-2022 ambulatory UX DESIGN MANAGER JANENE AICHHOLZ Facility:[facility] Start: 05-29-2022 End: 05-30-2022 ambulatory UX DESIGN MANAGER JANENE AICHHOLZ Facility:[facility] Start: 05-13-2022 ambulatory UX DESIGN MANAGER JANENE KARENHOLZ Facil ity:[facility] Start: 05-12-2022 End: 05-12-2022 ambulatory Christian Hamilton Other [facility] Other Start: 05-12-2022 Office outpatient vi sit 15 minutes Christian Hamilton [facility] Start: 04-25-2022 End: 04-25-2022 ambulatory Aziz Bakhous Other [facility] Other Start: 04-25-2022 Office outpatient ne w 30 minutes Aziz Bakhous [facility] [place] Start: 03-29-2022 End: 03-30-2022 ambulatory UX DESIGN MANAGER JANENE AICHHOLZ Facility:[facility] Start: 03-23-2022 End: 03-24-2022 ambulatory UX DESIGN MANAGER JANENE AICHHOLZ Facility:[facility] Start: 02-19-2022 End: 02-19-2022 ambulatory UX DESIGN MANAGER JANENE AICHHOLZ Facility:[facility] Start: 02-16-2022 End: 02-16-[address] MYRIAM PERRIN . Facility:[facility] Start: 02-15-2022 ambulatory UX DESIGN MANAGER JANENE AICHHOLZ Facil ity:[facility] Start: 01-25-2022 End: 01-25-2022 Patient encounter procedure Janene Lew Work Phone: [facility] Start: 01-25-2022 End: 01-25-2022 ambulatory Janene J Reddhholz Work Phone: [facility] Work Phone: Start: 01-25-2022 Office outpatient vi sit 25 minutes Emma Bolivar [facility] Start: 01-25-2022 End: 01-26-2022 ambulatory UX DESIGN MANAGER JANENE LOUANN Facility:[facility] Start: 01-23-2022 End: 01-24-2022 ambulatory UX DESIGN MANAGER JANENE LOUANN Facility:[facility] Start: 01-12-2022 End: 01-13-2022 ambulatory UX DESIGN MANAGER JANENE LOUANN Facility:[facility] Start: 12-21-2021 End: 12-22-2021 ambulatory UX DESIGN MANAGER JANENE LOUANN Facility:[facility] Start: 12-06-2021 End: 12-06-2021 ambulatory Christian Hamilton Other [facility] Other Start: 12-06-2021 Office outpatient vi sit 15 minutes Christian Hamilton [facility] Start: 11-30-2021 End: 11-30-2021 ambulatory UX DESIGN MANAGER JANENE KARENHOLZ Facility:[facility] Start: 11-28-2021 End: 11-29-2021 ambulatory UX DESIGN MANAGER JANENE LOUANN Facility:[facility] Start: 11-14-2021 End: 11-14-2021 ambulatory Janene J Karenholgabo Work Phone: [facility] Work Phone: Start: 11-14-2021 End: 11-14-2021 Discharged Recurring Janene Reddpanchitoangiez Work Phone: [facility] [place] Start: 11-10-2021 End: 11-10-2021 ambulatory Christian Hamilton Other [place] [employer] Other Start: 11-10-2021 Postop follow up vis it related to original px Christian Hamilton [facility] Start: 10-28-2021 End: 10-29-2021 ambulatory UX DESIGN MANAGER JANENE LOUANN Facility:[facility] Start: 10-02-2021 End: 10-02-2021 ambulatory UX DESIGN MANAGER JANENE WILFREDOZ Facility:[facility] Start: 09-29-2021 End: 09-29-2021 ambulatory Christian Hamilton Other [facility] Other Start: 09-29-2021 Postop follow up vis it related to original px Christian Hamilton [facility] Start: 08-30-2021 End: 08-30-2021 ambulatory Christian Hamilton Other [facility] Other Start: 08-30-2021 Postop follow up vis it related to original px Christian Hamilton [facility] Start: 08-12-2021 Admission to [facility] surgery center Christian Hamilton [facility] Start: 08-12-2021 End: 08-12-2021 ambulatory Christian Hamilton Other [facility] Other Start: 08-23-2018 End: 08-25-2018 Evaluation and management of inpatient Peng Merino Facility:[facility] Procedures Date Procedure Procedure Detail Performing Clinician Start: 06-16-2024 Hemoglobin glycosyla joaquin a1c Marya Andrade Petznick DO Work Phone: Start: 02-19-2024 Hemoglobin glycosyla joaquin a1c Marya Andrade Petznick DO Work Phone: Start: 12-18-2023 ALL CBC WITH AUTO DIFF Janene Lew CORE MACHINE OPERATOR Work Phone: Start: 11-01-2023 End: 11-01-2023 Colonoscopy Janene Louann Work Phone: Start: 09-28-2023 Mammography Janene mcfarland CORE MACHINE OPERATOR Work Phone: Start: 09-11-2023 History of percutane ous transluminal coronary angioplasty History of PTCA Janene Lew NP Work Phone: Start: 05-17-2023 Urine culture Janene Reddpanchito omkar Work Phone: Start: 08-23-2018 FLUOROSCOPY OF MULTI PLE CORONARY ARTERIES USING OTH CONTRAST TK MORRELLFARZANACHEN Start: 05-18-2016 Microscopic observat ion [Identifier] in Cervix by Cyto stain Janene Lew CORE MACHINE OPERATOR Work Phone: History of percutane ous transluminal coronary angioplasty History of PTCA Janene Louann Work Phone: Plan of Treatment Date Care Activity Detail Author Start: 10-31-2033 Screening for malignant neoplasm of colon [facility] Start: 09-05-2025 Glaucoma screening Diabetes: Retinopathy Screening [facility] Start: 10-20-2024 End: 10-20-2024 Patient encounter procedure 10/20/2024 10:30 AM EDT Office Visit [facility] [address] [place] [address] Marya Castorena DO [address] [place] [address] [facility] 230 Start: 09-27-2024 Screening for malignant neoplasm of breast Mammogram [facility] Start: 09-16-2024 Hemoglobin A1c measurement Diabetes: Hemoglobin A1C [facility] Start: 09-03-2024 End: 09-03-2024 Patient encounter procedure 09/03/2024 9:40 AM EDT Office Visit [facility] [address] [place] [address] Janene Lew NP [address] [place] [address] [facility] Start: 06-19-2024 End: 06-19-2024 Patient encounter procedure 06/19/2024 10:15 AM EST Office Visit [facility] [address] [place] [address] Marya Castorena, DO [address] [place] [address] [facility] 230 Start: 06-16-2024 End: 06-16-2024 Patient encounter procedure 06/16/2024 9:15 AM EST Office Visit [facility] [address] [place] [id number] Marya Castorena, DO [address] [place] [address] Arrived [facility] 230 Comment on above: Arrived Start: 05-21-2024 Hemoglobin A1c measurement Diabetes: Hemoglobin A1C [facility] Start: 05-10-2024 Urine screening for protein Diabetes: Urine Protein Screening [facility] Start: 03-06-2024 End: 03-06-2025 25-hydroxyvitamin D3 [Mass/volume] in Serum or Plasma Vitamin D 25 hydroxy Lab Routine Vitamin D deficiency Expected: 03/06/2024 (Approximate), Expires: 03/06/2025 [facility] Comment on above: Expected: 03/06/2024 (Approximate), Expi res: 03/06/2025 Start: 03-06-2024 End: 03-06-2025 CBC W Auto Differential panel - Blood CBC and differential Lab Routine Coronary arteriosclerosis (CMS/HCC) Stage 3b chronic kidney disease (HCC) ([facility]) Expected: 03/06/2024 (Approximate), Expires: 03/06/2025 [facility] Work Phone: Comment on above: Expected: 03/06/2024 (Approximate), Expi res: 03/06/2025 Start: 03-06-2024 End: 03-06-2025 Cobalamin (Vitamin B12) [Mass/volume] in Serum or Plasma Vitamin B12 Lab Routine Vitamin B12 deficiency Expected: 03/06/2024 (Approximate), Expires: 03/06/2025 [facility] Comment on above: Expected: 03/06/2024 (Approximate), Expi res: 03/06/2025 Start: 03-06-2024 End: 03-06-2025 Comprehensive metabolic 2000 panel - Serum or Plasma Comprehensive metabolic panel Lab Routine Primary hypertension (CMS/HCC) Coronary arteriosclerosis (CMS/HCC) Stage 3b chronic kidney disease (HCC) (CMS/HCC) Lower extremity edema Class 3 severe obesity due to excess calories with serious comorbidity and body mass index (BMI) of 45.0 to 49.9 in adult (CMS/HCC) Vitamin D deficiency Expected: 03/06/2024 (Approximate), Expires: 03/06/2025 [facility] Comment on above: Expected: 03/06/2024 (Approximate), Expi res: 03/06/2025 Start: 03-06-2024 End: 03-06-2025 Ferritin [Mass/volume] in Serum or Plasma Ferritin Lab Routine H/O bariatric surgery Expected: 03/06/2024 (Approximate), Expires: 03/06/2025 [facility] Comment on above: Expected: 03/06/2024 (Approximate), Expi res: 03/06/2025 Start: 03-06-2024 End: 03-06-2025 Iron and Iron binding capacity panel - Serum or Plasma Iron level Lab Routine H/O bariatric surgery Expected: 03/06/2024 (Approximate), Expires: 03/06/2025 [facility] Comment on above: Expected: 03/06/2024 (Approximate), Expi res: 03/06/2025 Start: 03-06-2024 End: 03-06-2025 Lipid 1996 panel - Serum or Plasma Lipid panel Lab Routine Coronary arteriosclerosis (CMS/HCC) Expected: 03/06/2024 (Approximate), Expires: 03/06/2025 [facility] Comment on above: Expected: 03/06/2024 (Approximate), Expi res: 03/06/2025 Start: 03-06-2024 End: 03-06-2025 Microalbumin/Creatinine panel in random Urine Microalbumin / creatinine, urine ratio Lab Routine Primary hypertension (CMS/HCC) Stage 3b chronic kidney disease (HCC) (CMS/HCC) Expected: 03/06/2024 (Approximate), Expires: 03/06/2025 [facility] Comment on above: Expected: 03/06/2024 (Approximate), Expi res: 03/06/2025 Start: 03-06-2024 End: 03-06-2025 Urinalysis complete panel - Urine Urinalysis with reflex microscopic (clean catch) Lab Routine Primary hypertension (CMS/HCC) Stage 3b chronic kidney disease (HCC) (CMS/HCC) Expected: 03/06/2024 (Approximate), Expires: 03/06/2025 [facility] Comment on above: Expected: 03/06/2024 (Approximate), Expi res: 03/06/2025 Start: 03-06-2024 End: 03-06-2024 Patient encounter procedure [facility] Comment on above: Spinal stenosis of lumbar region at mult iple levels (Primary Dx); Restless leg syndrome; URIEL (obstructive sleep apnea); Primary hypertension (CMS/HCC); Coronary arteriosclerosis (CMS/HCC); Stage 3b chronic kidney disease (HCC) (CMS/HCC); Swelling of both lower extremities; Lower extremity edema; Type 2 diabetes mellitus with stage 3a chronic kidney disease, without long-term current use of insulin (HCC) (CMS/HCC); Class 3 severe obesity due to excess calories with serious comorbidity and body mass index (BMI) of 45.0 to 49.9 in adult (CMS/HCC); Bipolar affective disorder, remission status unspecified (CMS/HCC); Generalized anxiety disorder (CMS/HCC); Vitamin D deficiency; Vitamin B12 deficiency; H/O bariatric surgery Start: 02-19-2024 End: 02-19-2024 Patient encounter procedure 02/19/2024 9:30 AM EST Office Visit [facility] [address] [place] [address] Marya Castorena DO [address] [place] [address] [facility] 230 Start: 02-14-2024 Influenza vaccination Influenza Vaccine (#1) [facility] Comment on above: Postponed from 12/16/2023 (Patient Does Not Have Time) Start: 12-25-2023 Hemoglobin A1c measurement Diabetes: Hemoglobin A1C [facility] Start: 12-05-2023 End: 12-04-2024 Basic metabolic 1998 panel - Serum or Plasma Basic metabolic panel Lab Routine Left lower quadrant abdominal pain Expected: 12/05/2023 (Approximate), Expires: 12/04/2024 [facility] Comment on above: Expected: 12/05/2023 (Approximate), Expi res: 12/04/2024 Start: 12-05-2023 End: 12-04-2024 CBC W Auto Differential panel - Blood CBC and differential Lab Routine Left lower quadrant abdominal pain Expected: 12/05/2023 (Approximate), Expires: 12/04/2024 [facility] Comment on above: Expected: 12/05/2023 (Approximate), Expi res: 12/04/2024 Start: 12-05-2023 End: 12-04-2024 XR Abdomen Single view XR ABDOMEN 2 VIEW Imaging Routine Left lower quadrant abdominal pain Expected: 12/05/2023, Expires: 12/04/2024 [facility] Work Phone: Comment on above: Expected: 12/05/2023, Expires: Start: 12-05-2023 End: 12-05-2023 Patient encounter procedure 12/05/2023 8:40 AM EDT Office [address] [facility] [address] [place] [address] Janene Lew, ELIER [address] [place] [id number] Morbid (severe) obesity due to excess calories (CMS/HCC); Body mass index (BMI) 45.0-49.9, adult (CMS/HCC) [facility] Comment on above: Morbid (severe) obesity due to excess ca lories (CMS/HCC); Body mass index (BMI) 45.0-49.9, adult (CMS/HCC) Start: 11-01-2023 [facility] Start: 10-02-2023 [facility] Start: 10-01-2023 Referral to nursing home manager [facility] Start: 10-01-2023 Hospital admission [facility] Start: 05-17-2023 Bacteria identified in Urine by Culture [facility] Start: 05-18-2019 Screening for malignant neoplasm of cervix Pap Smear [facility] Start: 2000 Screening for malignant neoplasm of cervix HPV/Cotest [facility] Start: 1970 Screening for malignant neoplasm of colon [facility] Patient Education [facility] Work Phone: Patient referral [facility] Work Phone: Renal function 1999 panel - Serum or Plasma [facility] Renal function 1999 panel - Serum or Plasma [facility] Immunizations Immunization Date Immunization Notes Care Provider Fa cili 01-24-2024 SARS-COV-2 (COVID-19 ) vaccine, mRNA, spike protein, LNP, PF, saravanan-sucrose, 30 mcg/0.3 mL Marya Petznick DO Work Phone: [facility] 01-24-2024 Seasonal, trivalent, recombinant, injectable influenza vaccine, preservative free Marya Petznick DO Work Phone: [facility] 02-09-2023 influenza, injectabl e, quadrivalent, preservative free Janene Aichholz CORE MACHINE OPERATOR Work Phone: [facility] 02-09-2023 influenza virus vaccine, unspecified formulation Janene Aichholz CORE MACHINE OPERATOR Work Phone: [facility] 07-03-2022 hepatitis A and hepatitis B vaccine Janene Aichholz CORE MACHINE OPERATOR Work Phone: [facility] 07-03-2022 zoster vaccine recombinant Janene Aichholz CORE MACHINE OPERATOR Work Phone: [facility] 01-20-2022 hepatitis A and hepatitis B vaccine Janene Aichholz CORE MACHINE OPERATOR Work Phone: [facility] 12-19-2021 hepatitis A and hepatitis B vaccine Janene Aichholz CORE MACHINE OPERATOR Work Phone: [facility] 12-19-2021 influenza, injectabl e, quadrivalent, preservative free Janene Aichholz CORE MACHINE OPERATOR Work Phone: [facility] 12-19-2021 tetanus toxoid, redu drew diphtheria toxoid, and acellular pertussis vaccine, adsorbed Janene Aichholz CORE MACHINE OPERATOR Work Phone: [facility] 12-19-2021 zoster vaccine recombinant Janene Aichholz CORE MACHINE OPERATOR Work Phone: [facility] 05-17-2021 COVID-19 mRNA, Comirnaty (Pfizer) Janene Aichholz Work Phone: [facility] 05-16-2021 Pfizer Purple Cap SARS-CoV-2 Vaccination Janene Aichholz CORE MACHINE OPERATOR Work Phone: [facility] 09-06-2020 COVID-19 mRNA, Comirnaty (Pfizer) Janene Aichholz Work Phone: [facility] 08-17-2020 Pfizer Purple Cap SARS-CoV-2 Vaccination Janene Aichholz CORE MACHINE OPERATOR Work Phone: [facility] 08-16-2020 COVID-19 mRNA, Comirnaty (Pfizer) Janene Aichholz Work Phone: [facility] 03-10-2020 influenza, injectabl e, quadrivalent, preservative free Janene Aichholz CORE MACHINE OPERATOR Work Phone: [facility] 03-10-2020 pneumococcal polysaccharide vaccine, 23 valent Janene Aichholz CORE MACHINE OPERATOR Work Phone: [facility] 02-16-2020 influenza, seasonal, injectable Janene Aichholz CORE MACHINE OPERATOR Work Phone: [facility] 02-16-2020 pneumococcal polysaccharide vaccine, 23 valent Janene Aichholz CORE MACHINE OPERATOR Work Phone: [facility] 01-31-2019 influenza, injectabl e, quadrivalent, preservative free Janene Aichholz Work Phone: [facility] 01-31-2019 influenza, injectabl e, quadrivalent, contains preservative Christian Hamilton Other [facility] Other 03-15-2018 influenza, injectabl e, quadrivalent, preservative free Janene Aichholz Work Phone: [facility] 03-15-2018 influenza, injectabl e, quadrivalent, contains preservative Christian Hamilton Other [place] [employer] Other 02-03-2017 influenza, injectabl e, quadrivalent, preservative free Janene Karenholz CORE MACHINE OPERATOR Work Phone: [facility] 04-16-2011 pneumococcal conjuga te vaccine, 13 valent Janene Aicpanchitoholz CORE MACHINE OPERATOR Work Phone: [facility] 01-14-1997 pneumococcal polysaccharide vaccine, 23 valent Janene Aichholz CORE MACHINE OPERATOR Work Phone: [facility] Healthcare Payers Date Payer Category Payer [facility] [id number] 2023 Private Health Insurance [id number] 2023 Unknown [id number] 2022 Self-pay [id number] 2022 Medicaid [id number] 2.16.840.1.849527.19 2022 Private Health Insurance [id number] 2.16.840.1.434979.19 2022 Private Health Insurance 2022 Unknown 2010 Self-pay [id number] 1970 Unknown [id number] 2.16.840.1.914433.3.579.2. 647 1970 Unknown [id number] 2.16.840.1.607011.3.579.2. 593 1970 Unknown [id number] 2.16.840.1.619014.3.579.2. 593 1970 Unknown [id number] 2.16.840.1.582159.3.579.2. 593 1970 Unknown [id number] 2.16.840.1.331298.3.579.2. 593 1970 Unknown [id number] 2.16.840.1.860212.3.579.2. 593 1970 Unknown [id number] 2.16.840.1.849770.3.579.2. 593 1970 Unknown [id number] 2.16.840.1.345906.3.579.2. 593 1970 Unknown [id number] 2.16.840.1.649883.3.579.2. 593 1970 Unknown [id number] 2.16.840.1.158250.3.579.2. 593 1970 Unknown [id number] 2.16.840.1.316831.3.579.2. 593 1970 Unknown [id number] 2.16.840.1.199989.3.579.2. 593 1970 Unknown [id number] 2.16.840.1.163131.3.579.2. 593 1970 Unknown [id number] 2.16.840.1.074975.3.579.2. 593 1970 Unknown [id number] 2.16.840.1.452677.3.579.2. 593 1970 Unknown [id number] 2.16.840.1.925621.3.579.2. 593 1970 Unknown [id number] 2.16.840.1.299785.3.579.2. 593 1970 Unknown [id number] 2.16.840.1.500218.3.579.2. 593 1970 Unknown [id number] 2.16.840.1.932119.3.579.2. 718 1970 Unknown [id number] 2.16.840.1.567466.3.579.2. 1970 Unknown [id number] 2.16.840.1.657778.3.579.2. 1970 Unknown [id number] 2.16.840.1.546047.3.579.2. 1970 Unknown [id number] 2.16.840.1.191526.3.579.2. 1970 Unknown [id number] 2.16.840.1.277977.3.579.2. 1970 Unknown [id number] 2.16.840.1.411121.3.579.2. 1258 1970 Unknown [id number] 2.16.840.1.983512.3.579.2. 1258 1970 Unknown [id number] 2.16.840.1.823382.3.579.2. 1258 1970 Unknown [id number] 2.16.840.1.450200.3.579.2. 1258 1970 Unknown [id number] 2.16.840.1.178315.3.579.2. 1258 1970 Unknown [id number] 2.16.840.1.297763.3.579.2. 1258 1970 Unknown [id number] 2.16.840.1.802771.3.579.2. 1258 1970 Unknown [id number] 2.16.840.1.607332.3.579.2. 1258 1970 Unknown [id number] 2.16.840.1.544553.3.579.2. 1258 1970 Unknown [id number] 2.16.840.1.460340.3.579.2. 1258 1970 Unknown [id number] 2.16.840.1.116827.3.579.2. 1258 1970 Unknown [id number] 2.16.840.1.606446.3.579.2. 1258 1970 Unknown [id number] 2.16.840.1.000420.3.579.2. 1258 1970 Unknown [id number] 2.16840.1.751416.3.579.2. 1258 1970 Unknown [id number] 2.840.1.826561.3.579.2. 1258 1970 Unknown [id number] 2.840.1.621077.3.579.2. 1258 1959 Private Health Insurance [id number] 2.16840.1.360093.19 1959 Unknown [id number] .840.1.023748.19 Medicaid [place] Medicaid [id number] Unknown [place] BC/BS [id number] Unknown [id number] 2.16840.1.693593.3.579.2. 531 Unknown [id number] 2.840.1.070829.3.579.2. 531 Unknown [id number] 2.16.840.1.417667.3.579.2. 531 Unknown [id number] 2.16840.1.351838.3.579.2. 531 Unknown [id number] 2.16840.1.479634.3.579.2. 531 Unknown [id number] 2.16840.1.745266.3.579.2. 531 Unknown [id number] 2.16.840.1.401922.3.579.2. 531 Unknown [id number] 2.16.840.1.322232.3.579.2. 531 Social History Date Type Detail Facility Unknown if ever smoked [facility] Other Start: 05-02-2023 End: 06-16-2024 Sex Assigned At [facility] Start: 08-12-2021 End: 09-20-2023 Tobacco smoking status NHIS Never smoked tobacco (finding) [facility] Start: 1970 Sex Assigned At Female [facility] Start: 09-20-2023 Tobacco use and exposure Smokeless tobacco non-user [facility] Start: 02-19-2024 End: 06-16-2024 Alcoholic beverage intake Lifetime non-drinker (finding) [facility] Start: 05-02-2023 End: 06-16-2024 History of Social function [facility] Within the last year , have you been afraid of your partner or ex-partner? No [facility] Are you now , , , , never or living with a partner? Never [facility] How often to you hav e a drink containing alcohol? Never [facility] How many standard drinks containing alcohol do you have on a typical day? Patient does not drink [facility] How hard is it for you to pay for the very basics like food, housing, medical care, and heating Very hard [facility] Do you feel stress - tense, restless, nervous, or anxious, or unable to sleep at night because your mind is troubled all the time - these days [OSQ] Rather much [facility] (I/We) worried whether (my/our) food would run out before (I/we) got money to buy more. Sometimes true [facility] Start: 05-01-2023 Alcohol Comment caffeine: coff ee, soda/pop [facility] Start: 1970 Sex assigned at Not on file [facility] NEGATED: Highlighted rowStart: NINF History of tobacco use Passive smoker [facility] Medical Equipment Procedure Code Equipment Code Equipment Origin al Text Equipment Identifier Dates Once a day Use a s instructed [id number] Start: 07-02-2023 End: 07-01-2024 Fsbs bid [id number] Start: 11-19-2023 Goals Date Patient Goal Desired Activity /State Functional Status Date Assessment Result Facility 10-02-2023 Functional status Patient at Baseline [facility] Work Phone: Mental Status Date Assessment Result Facility 10-02-2023 Cognitive function Cognitive Sta tus Patient at Baseline [facility] Work Phone: Clinical Notes 08-30-2021 to 06-16-2024 Marya Castorena DO - 06/16/2024 9:36 AM Deepti Castorena DO - 06/16/2024 9:15 AM Souleymane Lew NP - 03/06/2024 9:59 AM TOSHIA VALENTE - 03/06/2024 9:20 AM ESTPatient Instructions Note Date & Type Note Facility 06-16-2024 History of Present illness Narrative Associated Problem(s): Type 2 diabetes mellitus with other circulatory complications ([facility]) During the appointment today all pertinent labs, imaging, health maintenance, and glucose readings were reviewed. Encouraged to check blood glucose throughout the day with some fasting and some PP readings. They are to bring their glucose meter/cgm in to all appointments. All of the patients questions, treatment options, and current care plan and goals were discussed. A copy of this along with pertinent instructions were given to the patient at the end of the appointment. The patient voices understanding of all of this and is to call in between appointments if they have any problems or questions. Sherly Humphreys is doing very well and encouraged on this. , Will stay on current medications. , Discussed dietary changes at length. Encouraged to limit simple carbs and focus more on healthy protein/fat with all meals and snacks. They should also avoid any sugary drinks. , Instructions given today include: Dietary education. Will work on using a food journal and encouraged her to get into a regular exercise routine with at least 2 days a week of resistance training. Images from the original note were not included. Sherly Humphreys is a 53 y.o. female presents with chief complaint of Diabetes HPI: Diabetes Mellitus Initial: Patient here for initial evaluation of diabetes mellitus. The initial diagnosis of diabetes was made around 2005 Complications include: nephropathy She has been checking her blood glucose once a day in the mornings Last A1c: 5.1 on 02/19/2024 Eye exam: 09/06/2023 Current concerns include: Bg levels: has not been checking due to losing glucometer end if April. Stopped drinking all pop in February. Anabel is working well she 28 lbs since her last visit. They past month she has started to gain weight back about 15 lbs in the past month. Still following diet. Diet: Watching carb and sugar intake. Exercise: Drinks: water, crystal light packets and cirkul water bottles Hypoglycemia: none SUBJECTIVE: PROBLEM LIST SOCIAL ALLERGIES: Patient Active Problem List Diagnosis Spinal stenosis of thoracolumbar region Spinal stenosis of lumbar region at multiple levels URIEL (obstructive sleep apnea) Hypertension (CMS/HCC) Coronary arteriosclerosis (CMS/HCC) Bradycardia GERD (gastroesophageal reflux disease) Microscopic hematuria Lower extremity edema Type 2 diabetes mellitus with stage 3a chronic kidney disease, without long-term current use of insulin (HCC) (CMS/HCC) Seasonal allergies Migraine headache (CMS/HCC) Hypomagnesemia Hyperlipidemia (CMS/HCC) Depression (CMS/HCC) Encounter for screening mammogram for malignant neoplasm of breast Colon cancer screening Heel pain, bilateral Insomnia Dyspnea Irritable bowel syndrome with diarrhea H/O bariatric surgery Abdominal wall hernia Nephrolithiasis Lumbar disc herniation Degenerative disc disease, lumbar Elevated liver enzymes Bipolar disorder (CMS/HCC) Generalized anxiety disorder (CMS/HCC) Chronic diastolic heart failure (CMS/HCC) History of anuria E-coli UTI Muscle spasm Stage 3b chronic kidney disease (HCC) (CMS/HCC) Displacement of lumbar intervertebral disc with radiculopathy Hypertensive nephropathy (CMS/HCC) History of PTCA Headache, tension-type History of colon polyps Dental infection Antibiotic-induced yeast infection Restless leg syndrome Acute kidney injury superimposed on CKD (CMS/HCC) Hyperkalemia Hyperuricemia Iron deficiency Vitamin B12 deficiency Vitamin D deficiency Anemia of renal disease Adenomatous polyp of cecum Diverticulosis large intestine w/o perforation or abscess w/o bleeding Class 2 severe obesity due to excess calories with serious comorbidity and body mass index (BMI) of 38.0 to 38.9 in adult ([facility]) Left lower quadrant abdominal pain Type 2 diabetes mellitus with other circulatory complications ([facility]) Acute non-recurrent pansinusitis Social History Tobacco Use Smoking status: Never Passive exposure: Never Smokeless tobacco: Never Vaping Use Vaping status: Never Used Substance Use Topics Alcohol use: Never Comment: caffeine: coffee, soda/pop Drug use: Never Allergies Allergen Reactions Prochlorperazine Unknown Other Reaction(s): Other, Seizure seizures Sulfamethoxazole Rash Other Reaction(s): Other Empagliflozin Other Reaction(s): Not available, Unknown Reaction Keflex [Cephalexin] Nexium [Esomeprazole] GI intolerance Penicillins Phenergan [Promethazine] Prilosec [Omeprazole] GI intolerance Protonix [Pantoprazole] GI intolerance Zolpidem Unknown Other Reaction(s): Unknown Reaction Sulfamethoxazole-Trimethoprim Rash Other Reaction(s): other, Unknown Synopsis [facility] 06/16/2024 09:22 Antidiabetic medications Tirzepatide 7.5 mg Weekly SC (7.5 MG/0.5ML SOAJ) [place] [facility] [facility] [place]EMO[place] A1C/HEMOGLOBIN.TOTAL:MFR:PT:BLD: QN: 5.5 Outpatient prescription The ASCVD Risk score (Juli SHAH, et al., 2019) failed to calculate for the following reasons: Risk score cannot be calculated because patient has a medical history suggesting prior/existing ASCVD REVIEW OF SYMPTOMS: Review of Systems Constitutional: Negative for appetite change, fatigue and unexpected weight change. Eyes: Negative for visual disturbance. Respiratory: Negative for cough, shortness of breath and wheezing. Cardiovascular: Negative for chest pain, palpitations and leg swelling. Neurological: Negative for numbness. Endocrine: Negative for polydipsia, polyphagia and polyuria. OBJECTIVE: 06/16/2024 9:07 AM 03/06/2024 9:28 AM 02/19/2024 9:23 AM Vitals BMI 38.37 kg/m2 40.69 kg/m2 46.86 kg/m2 Systolic 136 132 130 Diastolic 82 84 82 Heart Rate 61 60 56 Temp 98.2 F 98.5 F 96.8 F Resp 20 Height (in) 5' 7 5' 7 5' 4 Weight (lb) 245 259.8 273 Visit Report Report Report Report Physical Exam Constitutional: General: She is not in acute distress. Appearance: Normal appearance. She is obese. Cardiovascular: Rate and Rhythm: Normal rate and regular rhythm. Heart sounds: No murmur heard. No friction rub. No gallop. Pulmonary: Breath sounds: Normal breath sounds. No wheezing, rhonchi or rales. Musculoskeletal: General: No swelling. Neurological: Mental Status: She is alert. ASSESSMENT AND PLAN: Problem List Items Addressed This Visit Type 2 diabetes mellitus with stage 3a chronic kidney disease, without long-term current use of insulin ([facility]) ([facility]) Relevant Orders POCT glycosylated hemoglobin (Hb A1C) docked device (Completed) Class 2 severe obesity due to excess calories with serious comorbidity and body mass index (BMI) of 38.0 to 38.9 in adult ([facility]) - Primary Type 2 diabetes mellitus with other circulatory complications ([facility]) During the appointment today all pertinent labs, imaging, health maintenance, and glucose readings were reviewed. Encouraged to check blood glucose throughout the day with some fasting and some PP readings. They are to bring their glucose meter/cgm in to all appointments. All of the patients questions, treatment options, and current care plan and goals were discussed. A copy of this along with pertinent instructions were given to the patient at the end of the appointment. The patient voices understanding of all of this and is to call in between appointments if they have any problems or questions. Sherly Humphreys is doing very well and encouraged on this. , Will stay on current medications. , Discussed dietary changes at length. Encouraged to limit simple carbs and focus more on healthy protein/fat with all meals and snacks. They should also avoid any sugary drinks. , Instructions given today include: Dietary education. Will work on using a food journal and encouraged her to get into a regular exercise routine with at least 2 days a week of resistance training. Follow up in about 4 months (around 10/16/2024) for Recheck. Patient's Medications New Prescriptions No medications on file Previous Medications AMLODIPINE (NORVASC) 10 MG TABLET Take 1 tablet (10 mg) by mouth Daily ARIPIPRAZOLE (ABILIFY) 30 MG TABLET Take 30 mg by mouth Daily ASPIRIN (ASPIRIN ADULT LOW DOSE) 81 MG EC TABLET Take 81 mg by mouth in the morning. ATORVASTATIN (LIPITOR) 80 MG TABLET Take 80 mg by mouth in the morning. BENZTROPINE (COGENTIN) 0.5 MG TABLET BLOOD GLUCOSE MONITORING SUPPL (TRUE METRIX AIR GLUCOSE METER) W/DEVICE KIT 1 each Daily BUSPIRONE (BUSPAR) 30 MG TABLET Take 30 mg by mouth in the morning and 30 mg before bedtime. CETIRIZINE (ZYRTEC) 10 MG TABLET Take 10 mg by mouth in the morning. CHOLECALCIFEROL (VITAMIN D-3) 125 MCG (5000 UT) CAPSULE Take 5,000 Units by mouth in the morning. CYANOCOBALAMIN (VITAMIN B-12) [address] 5,000 mg under the tongue 1 (one) time each day FENOFIBRATE (TRICOR) 145 MG TABLET Take 1 tablet (145 mg) by mouth Daily FLUOXETINE (PROZAC) 20 MG CAPSULE Take 20 mg by mouth Daily FLUTICASONE (FLONASE) 50 MCG/ACT NASAL SPRAY Administer 2 sprays into each nostril Daily FUROSEMIDE (LASIX) 20 MG TABLET Take 1 tablet (20 mg) by mouth in the morning. May increase to 2 pills IF worsening in leg swelling. GABAPENTIN (NEURONTIN) 600 MG TABLET Take 1 tablet (600 mg) by mouth 2 (two) times a day as needed (RLS) GLUCOSE BLOOD (TRUE METRIX BLOOD GLUCOSE TEST) TEST STRIP Once a day Use as instructed ISOSORBIDE MONONITRATE ER (IMDUR) 30 MG 24 HR TABLET Take 30 mg by mouth in the morning. Do not crush or chew.. LANCETS (ONETOUCH DELICA PLUS [id number]) [facility] [place] [facility] [place] METOPROLOL SUCCINATE XL (TOPROL-XL) 12.5 MG 24 HR SPLIT TABLET Take 12.5 mg by mouth Daily Pt has 25mg tabs and slitting the tab in half = taking 1/2 of 25mg NITROGLYCERIN (NITROSTAT) 0.[address] 1 TABLET UNDER TONGUE FOR CHEST PAIN. CALL 911 IF NO IMPROVEMENT AFTER 5 MIN. REPEAT DOSE TWICE IF NEEDED OXYCODONE-ACETAMINOPHEN (PERCOCET) 7.5-325 MG TABLET Take 1 tablet by mouth in the morning and 1 tablet before bedtime. ROPINIROLE (REQUIP) 0.25 MG TABLET Take 1 tablet (0.25 mg) by mouth at bedtime SACUBITRIL-VALSARTAN (ENTRESTO) 49-51 MG TABLET Take 0.5 tablets by mouth in the morning and 0.5 tablets before bedtime. Pt is to take 1/2 tab in morning and 1/2 tab at night to equal 1 tab per day. SENNA-DOCUSATE SODIUM (SENOKOT-S) 8.6-50 MG TABLET Take 1 tablet by mouth Daily OTC PO daily TIRZEPATIDE (MOUNJARO) 7.5 MG/0.5ML SOLUTION AUTO-INJECTOR Inject 7.5 mg under the skin 1 (one) time per week TIZANIDINE (ZANAFLEX) 4 MG TABLET Take 1 tablet (4 mg) by mouth every 8 (eight) hours if needed for muscle spasms VRAYLAR 6 MG CAPSULE Take 1 capsule by mouth Daily Modified Medications No medications on file Discontinued Medications AZITHROMYCIN (ZITHROMAX) 250 MG TABLET 2 pills day #1, then 1 pill day #2-#5 PALIPERIDONE (INVEGA) 3 MG 24 HR TABLET TAKE 1 TABLET BY MOUTH DAILY IN THE MORNING I have reviewed and reconciled the history and medication list with the patient today. documented in this encounter [facility] 03-06-2024 History of Present illness Narrative Associated Problem(s): Acute non-recurrent pansinusitis Finish atb, fluids, fu if not better Pt lost her voice on Sunday. Pt did have a sore throat on Sunday went to bed woke up on Sunday with no voice and coughing green mucus. Right ear did pop yesterday and now has a lot of pain in that ear and along the jaw line. Pt has had sinus pressure since Sunday as well. No headaches. No fever. Pt has had body aches, no chills, no sweats, no vomiting, no diarrhea, no nausea, no upset stomach, no SOB, and no tightness in the chest. Images from the original note were not included. Sherly Humphreys is a 53 y.o. female presents with chief complaint of No chief complaint on file. HPI: Hypertension This is a chronic problem. The current episode started more than 1 year ago. The problem is unchanged. The problem is controlled. Associated symptoms include anxiety, peripheral edema and shortness of breath. Pertinent negatives include no chest pain, headaches or palpitations. Agents associated with hypertension include amphetamines. Risk factors for coronary artery disease include diabetes mellitus, dyslipidemia, obesity and sedentary lifestyle. Past treatments include beta blockers, calcium channel blockers and angiotensin blockers. The current treatment provides significant improvement. There are no compliance problems. Hypertensive end-organ damage includes kidney disease, CAD/GA and heart failure. Identifiable causes of hypertension include chronic renal disease. Edema Presents with chronic edema. The current episode started more than 1 year ago. The onset of the episode was gradual. The problem presents itself daily. The problem has been gradually improving. The edema is present on the both side(s). Risk factors for edema include no known risk factors. Associated agents include calcium channel blockers. Pertinent negative symptoms include no abdominal pain, no chest pain, no cough, no fever, no nausea, no palpitations and no vomiting. Past medical history is significant for CAD, CHF and chronic renal disease. Pertinent negative history includes no cirrhosis and no hepatitis. Treatments tried include diuretics. There has been significant improvement on treatment(s). Sinusitis This is a new problem. The current episode started 1 to 4 weeks ago. The problem is unchanged. There has been no fever. The pain is moderate. Associated symptoms include congestion, ear pain, a hoarse voice, shortness of breath, sinus pressure and a sore throat. Pertinent negatives include no chills, coughing or headaches. Past treatments include nothing. SUBJECTIVE: MEDICATIONS: Current Outpatient Medications Medication Instructions amLODIPine (NORVASC) 10 mg, Oral, Daily ARIPiprazole (ABILIFY) 30 mg, Daily aspirin (ASPIRIN ADULT LOW DOSE) 81 mg, Daily atorvastatin (LIPITOR) 80 mg, Daily azithromycin (Zithromax) 250 MG tablet 2 pills day #1, then 1 pill day #2-#5 benztropine (Cogentin) 0.5 MG tablet Blood Glucose Monitoring Suppl (True Metrix Air Glucose Meter) w/Device kit 1 each, Does not apply, Daily busPIRone (BUSPAR) 30 mg, 2 times daily cetirizine (ZYRTEC) 10 mg, Daily cholecalciferol (VITAMIN D-3) 5,000 Units, Daily fenofibrate (TRICOR) 145 mg, Oral, Daily FLUoxetine (PROZAC) 20 mg, Daily fluticasone (Flonase) 50 MCG/ACT nasal spray 2 sprays, Each Nostril, Daily furosemide (LASIX) 20 mg, Oral, Daily, May increase to 2 pills IF worsening in leg swelling gabapentin (NEURONTIN) 600 mg, Oral, 2 times daily PRN glucose blood (True Metrix Blood Glucose Test) test strip Once a day Use as instructed isosorbide mononitrate ER (IMDUR) 30 mg, Daily Lancets (Libboo Delica Plus [id number]) misc Fsbs bid metoprolol succinate XL (TOPROL-XL) 12.5 mg, Daily Mounjaro 7.5 mg, Subcutaneous, Weekly nitroglycerin (Nitrostat) 0.[address] 1 TABLET UNDER TONGUE FOR CHEST PAIN. CALL 911 IF NO IMPROVEMENT AFTER 5 MIN. REPEAT DOSE TWICE IF NEEDED oxyCODONE-acetaminophen (Percocet) 7.5-325 MG tablet 1 tablet, 2 times daily paliperidone (Invega) 3 MG 24 hr tablet TAKE 1 TABLET BY MOUTH DAILY IN THE MORNING rOPINIRole (REQUIP) 0.25 mg, Oral, Nightly sacubitril-valsartan (Entresto) 49-51 MG tablet 0.5 tablets, 2 times daily senna-docusate sodium (Senokot-S) 8.6-50 MG tablet 1 tablet, Daily tiZANidine (ZANAFLEX) 4 mg, Oral, Every 8 hours PRN Vitamin B-12 5,000 mg, Daily Vraylar 6 MG capsule 1 capsule, Daily ALLERGIES: Allergies Allergen Reactions Prochlorperazine Unknown Other Reaction(s): Other, Seizure seizures Sulfamethoxazole Rash Other Reaction(s): Other Empagliflozin Other Reaction(s): Not available, Unknown Reaction Keflex [Cephalexin] Nexium [Esomeprazole] GI intolerance Penicillins Phenergan [Promethazine] Prilosec [Omeprazole] GI intolerance Protonix [Pantoprazole] GI intolerance Zolpidem Unknown Other Reaction(s): Unknown Reaction Sulfamethoxazole-Trimethoprim Rash Other Reaction(s): other, Unknown REVIEW OF SYMPTOMS: Review of Systems Constitutional: Negative for appetite change, chills and fever. HENT: Positive for congestion, ear pain, hoarse voice, sinus pressure and sore throat. Eyes: Negative for pain, discharge, redness and visual disturbance. Respiratory: Positive for shortness of breath. Negative for cough and wheezing. Cardiovascular: Negative for chest pain, palpitations and leg swelling. Gastrointestinal: Negative for abdominal pain, blood in stool, constipation, diarrhea, nausea and vomiting. Genitourinary: Negative for difficulty urinating, dysuria and frequency. Musculoskeletal: Negative for arthralgias, back pain, joint swelling and myalgias. Skin: Negative for rash and wound. Neurological: Negative for dizziness, tremors, seizures, syncope and headaches. Psychiatric/Behavioral: Negative for behavioral problems, self-injury and suicidal ideas. The patient is nervous/anxious. Depression Hematological: Does not bruise/bleed easily. Endocrine: Negative for polydipsia, polyphagia and polyuria. Allergic/Immunologic: Negative for environmental allergies and food allergies. PAST MEDICAL HISTORY Past Medical History: Diagnosis Date Abdominal wall hernia 07/02/2023 Anemia 04/30/2023 Anxiety 2010 Bradycardia 04/30/2023 Chest pain Chronic left shoulder pain Clostridioides difficile diarrhea 07/02/2023 Coronary arteriosclerosis ([facility]) 04/30/2023 COVID-19 Degenerative disc disease, lumbar 07/02/2023 Depression (CMS/HCC) 04/30/2023 Diabetes mellitus, type 2 (CMS/HCC) 04/30/2023 Dyspnea 07/02/2023 Elevated liver enzymes 07/02/2023 Family history of cancer Fatigue GERD (gastroesophageal reflux disease) 04/30/2023 H/O bariatric surgery 07/02/2023 Headache 07/02/2023 History of fusion of cervical spine Hyperkalemia Hyperlipidemia (CMS/HCC) 04/30/2023 Hypertension (CMS/HCC) 04/30/2023 Hypomagnesemia 04/30/2023 Insomnia 07/02/2023 Irritable bowel syndrome with diarrhea 07/02/2023 Lower extremity edema 04/30/2023 Lumbar disc herniation 07/02/2023 Microscopic hematuria 04/30/2023 Migraine headache (CMS/HCC) 04/30/2023 Myalgia Nephrolithiasis 07/02/2023 URIEL (obstructive sleep apnea) 04/30/2023 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 Restless leg syndrome Seasonal allergies 04/30/2023 Spinal stenosis of lumbar region at multiple levels 04/30/2023 Spinal stenosis of thoracolumbar region 04/30/2023 Stage 3 chronic kidney disease due to type 2 diabetes mellitus (HCC) (CMS/HCC) 04/30/2023 Swelling of both lower extremities 04/30/2023 Past Surgical History: Procedure Laterality Date BACK SURGERY 2021 BARIATRIC SURGERY 2017 COLONOSCOPY HYSTERECTOMY 2010 NECK SURGERY SHOULDER SURGERY Left RC family history includes Cancer in her mother; Depression in her mother; Diabetes in her sister; Heart attack in her father; Heart disease in her brother and father; Hypertension in her sister; Kidney disease in her sister; Stroke in her mother; Vision loss in her mother. OBJECTIVE: Visit Vitals BP 132/84 (BP Location: Left arm, Patient Position: Sitting, BP Cuff Size: Large adult long) Pulse 60 Temp 98.5 F (Temporal) Resp 20 Ht 5' 7 Wt 259 lb 12.8 oz SpO2 96% BMI 40.69 kg/m Smoking Status Never BSA 2.36 m Physical Exam Vitals and nursing note reviewed. Constitutional: General: She is not in acute distress. Appearance: Normal appearance. She is obese. She is not ill-appearing. HENT: Head: Normocephalic and atraumatic. Right Ear: Tympanic membrane, ear canal and external ear normal. Left Ear: Tympanic membrane, ear canal and external ear normal. Nose: Congestion present. Comments: Yellow Mouth/Throat: Mouth: Mucous membranes are moist. Pharynx: No oropharyngeal exudate or posterior oropharyngeal erythema. Eyes: Extraocular Movements: Extraocular movements intact. Conjunctiva/sclera: Conjunctivae normal. Neck: Vascular: No carotid bruit. Cardiovascular: Rate and Rhythm: Normal rate and regular rhythm. Pulses: Normal pulses. Heart sounds: Normal heart sounds. Pulmonary: Effort: Pulmonary effort is normal. Breath sounds: Normal breath sounds. No wheezing or rales. Abdominal: General: Bowel sounds are normal. There is no distension. Palpations: Abdomen is soft. There is no mass. Tenderness: There is no abdominal tenderness. Musculoskeletal: Cervical back: Normal range of motion and neck supple. Right lower leg: No edema. Left lower leg: No edema. Comments: Tenderness to lower lumbar and right lower lumbar -SLR X2, DTR's 2+ bilat patellar/achilles MMT 5/5 bilat LE, Near full ROM lumbar, increase pain with extension and rotation bilat Neg FABERs test Lymphadenopathy: Cervical: No cervical adenopathy. Skin: General: Skin is warm and dry. Capillary Refill: Capillary refill takes 2 to 3 seconds. Findings: No rash. Neurological: General: No focal deficit present. Mental Status: She is alert and oriented to person, place, and time. Psychiatric: Mood and Affect: Mood normal. Behavior: Behavior normal. Thought Content: Thought content normal. Judgment: Judgment normal. ASSESSMENT AND PLAN: Follow up in about 6 months (around 09/03/2024) for Recheck. Problem List Items Addressed This Visit Spinal stenosis of lumbar region at multiple levels Continues with pain mgmt for oral medications and treatment plan [facility] [facility] pain mgmt, ?? Possible spinal cord stimulator Will complete her FMLA URIEL (obstructive sleep apnea) Not using this, mask broke and they will give new mask Hypertension ([facility]) - Primary Please check blood pressure daily and record DASH diet Limit caffeine Take medication as directed Contact office if chest pain, pressure, dizziness, shortness of breath, swelling legs Recommend slow position changes Continue current meds Cont ASA, statin, b seema Relevant Orders Comprehensive metabolic panel Urinalysis with reflex microscopic (clean catch) Microalbumin / creatinine, urine ratio Coronary arteriosclerosis ([facility]) Relevant Orders CBC and differential Comprehensive metabolic panel Lipid panel RESOLVED: Swelling of both lower extremities Lower extremity edema Continues to take lasix as directed Compression stockings Limiting sodium intake Elevated legs above level of heart as much as possible Relevant Orders Comprehensive metabolic panel Type 2 diabetes mellitus with stage 3a chronic kidney disease, without long-term current use of insulin ([facility]) ([facility]) Check blood sugars daily, notify if <70 or >200. Take medications (pills or insulin) as directed. Monitor for s/s of hypoglycemia (sweaty, dizziness, nausea, vomiting, or shakiness). Watch for increase in thirst, urination, or appetite. Inspect feet frequently monitoring for open wounds , and also recommend yearly eye exam. Pt should attempt to remain as physically active as chronic conditions allow, as well as trying to follow a diet low in carbohydrates, and simple sugars. Continue on mounjaro as well 03/09 A1c is 5.1% H/O bariatric surgery Relevant Orders Iron level Ferritin Bipolar disorder ([facility]) Continue with psych for management of her mental health Generalized anxiety disorder ([facility]) Continue with psych for management of symptoms and meds Stage 3b chronic kidney disease (HCC) ([facility] [place] [place]) Is established with nephrology for mgmt/monitoring Continue to keep blood pressure and DM at goal Relevant Orders CBC and differential Comprehensive metabolic panel Urinalysis with reflex microscopic (clean catch) Microalbumin / creatinine, urine ratio Restless leg syndrome Continue mirapex Vitamin B12 deficiency Relevant Orders Vitamin B12 Vitamin D deficiency Relevant Orders Comprehensive metabolic panel Vitamin D 25 hydroxy Class 3 severe obesity due to excess calories with serious comorbidity and body mass index (BMI) of 45.0 to 49.9 in adult ([facility]) Has lost approx 64 pounds since 07/07 Discussed with patient their BMI (actual, verses recommended). We have also discussed lifestyle modifications: attempts to perform physical activity as chronic conditions allow, also to monitor dietary intake: increasing protein/fruits/veggies and lowering carb intake (unless contraindicated). Limit sodas, juices, and sugary drinks. Keep up the good work Relevant Orders Comprehensive metabolic panel Acute non-recurrent pansinusitis Finish atb, fluids, fu if not better Relevant Medications azithromycin (Zithromax) 250 MG tablet Associated Problem(s): Generalized anxiety disorder ([facility]) Continue with psych for management of symptoms and meds Associated Problem(s): Bipolar disorder ([facility]) Continue with psych for management of her mental health Associated Problem(s): Class 3 severe obesity due to excess calories with serious comorbidity and body mass index (BMI) of 45.0 to 49.9 in adult ([facility] [place] [place]) Has lost approx 64 pounds since 07/07 Discussed with patient their BMI (actual, verses recommended). We have also discussed lifestyle modifications: attempts to perform physical activity as chronic conditions allow, also to monitor dietary intake: increasing protein/fruits/veggies and lowering carb intake (unless contraindicated). Limit sodas, juices, and sugary drinks. Keep up the good work Associated Problem(s): Type 2 diabetes mellitus with stage 3a chronic kidney disease, without long-term current use of insulin ([facility]) ([facility]) Check blood sugars daily, notify if <70 or >200. Take medications (pills or insulin) as directed. Monitor for s/s of hypoglycemia (sweaty, dizziness, nausea, vomiting, or shakiness). Watch for increase in thirst, urination, or appetite. Inspect feet frequently monitoring for open wounds , and also recommend yearly eye exam. Pt should attempt to remain as physically active as chronic conditions allow, as well as trying to follow a diet low in carbohydrates, and simple sugars. Continue on mounjaro as well 03/09 A1c is 5.1% Associated Problem(s): Lower extremity edema Continues to take lasix as directed Compression stockings Limiting sodium intake Elevated legs above level of heart as much as possible Associated Problem(s): Stage 3b chronic kidney disease (HCC) ([facility]) Is established with nephrology for mgmt/monitoring Continue to keep blood pressure and DM at goal Associated Problem(s): Hypertension ([facility]) Please check blood pressure daily and record DASH diet Limit caffeine Take medication as directed Contact office if chest pain, pressure, dizziness, shortness of breath, swelling legs Recommend slow position changes Continue current meds Cont ASA, statin, b seema Associated Problem(s): URIEL (obstructive sleep apnea) Not using this, mask broke and they will give new mask Associated Problem(s): Restless leg syndrome Continue mirapex Associated Problem(s): Spinal stenosis of lumbar region at multiple levels Continues with pain mgmt for oral medications and treatment plan [employer] pain mgmt, ?? Possible spinal cord stimulator Will complete her FMLA documented in this encounter [facility] 03-06-2024 Instructions Janene Lew NP - 03/06/2024 9:20 AM EST Call CPAP company: see if they need a compliance report, they should be able to down load that for you Keep up great work with diabetes and weight loss documented in this encounter [facility] 02-19-2024 History of Present illness Narrative Associated Problem(s): Type 2 diabetes mellitus with other circulatory complications (CMS/HCC) During the appointment today all pertinent labs, imaging, health maintenance, and glucose readings were reviewed. Encouraged to check blood glucose throughout the day with some fasting and some PP readings. They are to bring their glucose meter/cgm in to all appointments. All of the patients questions, treatment options, and current care plan and goals were discussed. A copy of this along with pertinent instructions were given to the patient at the end of the appointment. The patient voices understanding of all of this and is to call in between appointments if they have any problems or questions. Sherly uHmphreys is doing very well and encouraged on this. She is to work on adding exercise into her regimen with the goal of getting up to 150 min of moderate exercise weekly. Will increase her mounjaro. Images from the original note were not included. Sherly Humphreys is a 53 y.o. female presents with chief complaint of Diabetes HPI: Diabetes Mellitus Initial: Patient here for initial evaluation of diabetes mellitus. The initial diagnosis of diabetes was made around 2005 Complications include: nephropathy She has been checking her blood glucose once a day (mornings) Last A1c: 5.8 on 09/24/2023 Eye exam: 06/2023 ([facility]) Current concerns include: Forgot meter. Mornings: 150-160 Diet: Watching carb and sugar intake. Snacks: nuts Drinks: water, crustal light packets and cirkul water bottles Hypoglycemia: None Plans on starting to walk with her niece. She is at a plateau for her weight loss right now staying in the 170's the past month. SUBJECTIVE: PROBLEM LIST SOCIAL ALLERGIES: Patient Active Problem List Diagnosis Spinal stenosis of thoracolumbar region Spinal stenosis of lumbar region at multiple levels URIEL (obstructive sleep apnea) Hypertension (CMS/HCC) Coronary arteriosclerosis (CMS/HCC) Bradycardia GERD (gastroesophageal reflux disease) Microscopic hematuria Swelling of both lower extremities Lower extremity edema Type 2 diabetes mellitus with stage 3a chronic kidney disease, without long-term current use of insulin (HCC) (CMS/HCC) Seasonal allergies Migraine headache (CMS/HCC) Hypomagnesemia Hyperlipidemia (CMS/HCC) Depression (CMS/HCC) Encounter for screening mammogram for malignant neoplasm of breast Colon cancer screening Heel pain, bilateral Insomnia Dyspnea Irritable bowel syndrome with diarrhea H/O bariatric surgery Abdominal wall hernia Nephrolithiasis Lumbar disc herniation Degenerative disc disease, lumbar Elevated liver enzymes Bipolar disorder (CMS/HCC) Depressive disorder (CMS/HCC) Generalized anxiety disorder ([facility]) Chronic diastolic heart failure ([facility]) History of anuria E-coli UTI Muscle spasm Stage 3b chronic kidney disease (HCC) ([facility]) Displacement of lumbar intervertebral disc with radiculopathy Hypertensive nephropathy ([facility]) History of PTCA Headache, tension-type Declining functional status History of colon polyps Dental infection Antibiotic-induced yeast infection Restless leg syndrome Acute kidney injury superimposed on CKD ([facility]) Hyperkalemia Hyperuricemia Iron deficiency Vitamin B12 deficiency Vitamin D deficiency Anemia of renal disease Adenomatous polyp of cecum Diverticulosis large intestine w/o perforation or abscess w/o bleeding Class 3 severe obesity due to excess calories with serious comorbidity and body mass index (BMI) of 45.0 to 49.9 in adult ([facility]) Left lower quadrant abdominal pain Type 2 diabetes mellitus with other circulatory complications ([facility]) Social History Tobacco Use Smoking status: Never Passive exposure: Never Smokeless tobacco: Never Vaping Use Vaping status: Never Used Substance Use Topics Alcohol use: Never Comment: caffeine: coffee, soda/pop Drug use: Never Allergies Allergen Reactions Prochlorperazine Unknown Other Reaction(s): Other, Seizure seizures Sulfamethoxazole Rash Other Reaction(s): Other Empagliflozin Other Reaction(s): Not available, Unknown Reaction Keflex [Cephalexin] Nexium [Esomeprazole] GI intolerance Penicillins Phenergan [Promethazine] Prilosec [Omeprazole] GI intolerance Protonix [Pantoprazole] GI intolerance Zolpidem Unknown Other Reaction(s): Unknown Reaction Sulfamethoxazole-Trimethoprim Rash Other Reaction(s): other, Unknown Synopsis [facility] 02/19/2024 02/10/2024 00:00 01/16/2024 23:59 Antidiabetic medications Tirzepatide 5 mg q7 days OTHER (5 MG/0.5ML SOAJ) -Rx End Tirzepatide inject 5 mg subcutaneously every 7 (seven) days for 28 days (5 MG/0.5ML SOAJ)-Discontinued No sig Tirzepatide 7.5 mg Weekly SC (7.5 MG/0.5ML SOAJ) Labs MHPT A1C 5.1 Outpatient prescription Patient-reported REVIEW OF SYMPTOMS: Review of Systems Constitutional: Negative for appetite change, fatigue and unexpected weight change. Eyes: Negative for visual disturbance. Respiratory: Negative for cough, shortness of breath and wheezing. Cardiovascular: Negative for chest pain, palpitations and leg swelling. Neurological: Negative for numbness. Endocrine: Negative for polydipsia, polyphagia and polyuria. OBJECTIVE: 02/19/2024 9:23 AM 12/05/2023 8:35 AM 11/19/2023 9:40 AM Vitals BMI 46.86 kg/m2 49.06 kg/m2 49.78 kg/m2 Systolic 130 122 122 Diastolic 82 88 68 Heart Rate 56 66 58 Temp 96.8 F 98.7 F 98.2 F Resp 20 Height (in) 5' 4 5' 4 5' 4 Weight (lb) 273 285.8 290 Visit Report Report Report Report Physical Exam Constitutional: General: She is not in acute distress. Appearance: Normal appearance. She is obese. Cardiovascular: Rate and Rhythm: Normal rate and regular rhythm. Heart sounds: No murmur heard. No friction rub. No gallop. Pulmonary: Breath sounds: Normal breath sounds. No wheezing, rhonchi or rales. Musculoskeletal: General: No swelling. Neurological: Mental Status: She is alert. ASSESSMENT AND PLAN: Problem List Items Addressed This Visit Type 2 diabetes mellitus with stage 3a chronic kidney disease, without long-term current use of insulin ([facility]) ([facility]) Class 3 severe obesity due to excess calories with serious comorbidity and body mass index (BMI) of 45.0 to 49.9 in adult ([facility]) Type 2 diabetes mellitus with other circulatory complications ([facility]) - Primary During the appointment today all pertinent labs, imaging, health maintenance, and glucose readings were reviewed. Encouraged to check blood glucose throughout the day with some fasting and some PP readings. They are to bring their glucose meter/cgm in to all appointments. All of the patients questions, treatment options, and current care plan and goals were discussed. A copy of this along with pertinent instructions were given to the patient at the end of the appointment. The patient voices understanding of all of this and is to call in between appointments if they have any problems or questions. Sherly Humphreys is doing very well and encouraged on this. She is to work on adding exercise into her regimen with the goal of getting up to 150 min of moderate exercise weekly. Will increase her mounjaro. Relevant Medications Tirzepatide (Mounjaro) 7.5 MG/0.5ML solution auto-injector Follow up in about 4 months (around 06/18/2024) for Recheck. Patient's Medications New Prescriptions TIRZEPATIDE (MOUNJARO) 7.5 MG/0.5ML SOLUTION AUTO-INJECTOR Inject 7.5 mg under the skin 1 (one) time per week Previous Medications AMLODIPINE (NORVASC) 10 MG TABLET Take 1 tablet (10 mg) by mouth Daily ARIPIPRAZOLE (ABILIFY) 30 MG TABLET Take 30 mg by mouth Daily ASPIRIN (ASPIRIN ADULT LOW DOSE) 81 MG EC TABLET Take 81 mg by mouth in the morning. ATORVASTATIN (LIPITOR) 80 MG TABLET Take 80 mg by mouth in the morning. BENZTROPINE (COGENTIN) 0.5 MG TABLET BLOOD GLUCOSE MONITORING SUPPL (TRUE METRIX AIR GLUCOSE METER) W/DEVICE KIT 1 each Daily BUSPIRONE (BUSPAR) 30 MG TABLET Take 30 mg by mouth in the morning and 30 mg before bedtime. CARIPRAZINE HCL 4.5 MG CAPSULE Take 4.5 mg by mouth 1 (one) time each day CETIRIZINE (ZYRTEC) 10 MG TABLET Take 10 mg by mouth in the morning. CHOLECALCIFEROL (VITAMIN D-3) 125 MCG (5000 UT) CAPSULE Take 5,000 Units by mouth in the morning. CYANOCOBALAMIN (VITAMIN B-12) [address] 5,000 mg under the tongue 1 (one) time each day FENOFIBRATE (TRICOR) 145 MG TABLET Take 1 tablet (145 mg) by mouth Daily FLUOXETINE (PROZAC) 20 MG CAPSULE Take 20 mg by mouth Daily FLUTICASONE (FLONASE) 50 MCG/ACT NASAL SPRAY Administer 2 sprays into each nostril Daily FUROSEMIDE (LASIX) 20 MG TABLET Take 1 tablet (20 mg) by mouth in the morning. May increase to 2 pills IF worsening in leg swelling. GABAPENTIN (NEURONTIN) 600 MG TABLET Take 1 tablet (600 mg) by mouth 2 (two) times a day as needed (RLS) GLUCOSE BLOOD (TRUE METRIX BLOOD GLUCOSE TEST) TEST STRIP Once a day Use as instructed ISOSORBIDE MONONITRATE ER (IMDUR) 30 MG 24 HR TABLET Take 30 mg by mouth in the morning. Do not crush or chew.. LANCETS (RocketripTOUCH DELICA PLUS [id number]) MISC Fsbs bid METOPROLOL SUCCINATE XL (TOPROL-XL) 12.5 MG 24 HR SPLIT TABLET Take 12.5 mg by mouth Daily Pt has 25mg tabs and slitting the tab in half = taking 1/2 of 25mg NITROGLYCERIN (NITROSTAT) 0.[address] 1 TABLET UNDER TONGUE FOR CHEST PAIN. CALL 911 IF NO IMPROVEMENT AFTER 5 MIN. REPEAT DOSE TWICE IF NEEDED OXYCODONE-ACETAMINOPHEN (PERCOCET) 7.5-325 MG TABLET Take 1 tablet by mouth in the morning and 1 tablet before bedtime. PALIPERIDONE (INVEGA) 3 MG 24 HR TABLET TAKE 1 TABLET BY MOUTH DAILY IN THE MORNING ROPINIROLE (REQUIP) 0.25 MG TABLET Take 1 tablet (0.25 mg) by mouth at bedtime SACUBITRIL-VALSARTAN (ENTRESTO) 49-51 MG TABLET Take 0.5 tablets by mouth in the morning and 0.5 tablets before bedtime. Pt is to take 1/2 tab in morning and 1/2 tab at night to equal 1 tab per day. SENNA-DOCUSATE SODIUM (SENOKOT-S) 8.6-50 MG TABLET Take 1 tablet by mouth Daily OTC PO daily TIZANIDINE (ZANAFLEX) 4 MG TABLET Take 1 tablet (4 mg) by mouth every 8 (eight) hours if needed for muscle spasms Modified Medications No medications on file Discontinued Medications FLUCONAZOLE (DIFLUCAN) 150 MG TABLET 1 dose, repeat in 72 hours MOUNJARO 5 MG/0.5ML SOLUTION AUTO-INJECTOR inject 5 mg subcutaneously every 7 (seven) days for 28 days VRAYLAR 4.5 MG CAPSULE I have reviewed and reconciled the history and medication list with the patient today. documented in this encounter [facility] 12-18-2023 Note [facility] Chief Complaint: Pt [...] S2 present. R (more content not included)... [facility] 12-05-2023 History of Present illness Narrative Associated Problem(s): Restless leg syndrome Continue mirapex Associated Problem(s): Left lower quadrant abdominal pain Will check xray to r/o perforation Will treat for diverticulitis: cipro and flagyl Fu if not better Advised no ETOH, as well as NO tizanidine while taking cipro Increase fiber Denies any fever, chills, NV Will call office if not better after atb If conditions worsens go to the ER Pt states that since having the colonoscopy she has had pain in her lower left abd/quad. Pt states she had a BM this morning but she feels tho she has not completely gone, she strains a lot while on the toilet. She had a soft Md BM this morning. She takes stool softner daily- senna, started this week takes 1 tablet PO daily. The pain is constant the pain does move and goes up her side (she is unsure if it could be a side effect from her back surgery or if something Is going on with her colon/intestines) pain is usually between a 6-8 on the pain scale. Hurts more when standing and laying down. Images from the original note were not included. Sherly Humphreys is a 52 y.o. female presents with chief complaint of No chief complaint on file. HPI: Here for recheck of RLS: last appt added mirapex for sxs and she reports doing well on med, tolerates no side effects, symptoms have improved about 90% Abdominal Pain This is a recurrent problem. The current episode started 1 to 4 weeks ago. The onset quality is gradual. The problem occurs constantly. The problem has been waxing and waning. The pain is located in the LLQ. The pain is at a severity of 8/10. The pain is moderate. Quality: throbbing. Pain radiation: sometimes left side. Associated symptoms include arthralgias. Pertinent negatives include no constipation, diarrhea, dysuria, fever, frequency, headaches, hematochezia, hematuria, myalgias, nausea or vomiting. Nothing aggravates the pain. Relieved by: bending and turning makes it worse. Treatments tried: takes percocet doesnt help. SUBJECTIVE: MEDICATIONS: Current Outpatient Medications Medication Instructions amLODIPine (NORVASC) 10 mg, Oral, Daily ARIPiprazole (ABILIFY) 30 mg, Oral, Daily aspirin (ASPIRIN ADULT LOW DOSE) 81 mg, Oral, Daily atorvastatin (LIPITOR) 80 mg, Oral, Daily Blood Glucose Monitoring Suppl (True Metrix Air Glucose Meter) w/Device kit 1 each, Does not apply, Daily busPIRone (BUSPAR) 30 mg, Oral, 2 times daily cetirizine (ZYRTEC) 10 mg, Oral, Daily cholecalciferol (VITAMIN D-3) 5,000 Units, Oral, Daily ciprofloxacin (CIPRO) 500 mg, Oral, 2 times daily fenofibrate (TRICOR) 145 mg, Oral, Daily FLUoxetine (PROZAC) 20 mg, Oral, Daily fluticasone (Flonase) 50 MCG/ACT nasal spray 2 sprays, Each Nostril, Daily furosemide (LASIX) 20 mg, Oral, Daily, May increase to 2 pills IF worsening in leg swelling gabapentin (NEURONTIN) 600 mg, Oral, 2 times daily PRN glucose blood (True Metrix Blood Glucose Test) test strip Once a day Use as instructed isosorbide mononitrate ER (IMDUR) 30 mg, Oral, Daily, Do not crush or chew. Lancets (OneTouch Delica Plus [id number]) misc Fsbs bid metoprolol succinate XL (TOPROL-XL) 12.5 mg, Oral, Daily, Pt has 25mg tabs and slitting the tab in half = taking 1/2 of 25mg metroNIDAZOLE (FLAGYL) 500 mg, Oral, Every 8 hours, No alcohol Mounjaro 5 mg, Other, Every 7 days oxyCODONE-acetaminophen (Percocet) 7.5-325 MG tablet 1 tablet, Oral, 2 times daily rOPINIRole (REQUIP) 0.25 mg, Oral, Nightly sacubitril-valsartan (Entresto) 49-51 MG tablet 0.5 tablets, Oral, 2 times daily, Pt is to take 1/2 tab in morning and 1/2 tab at night to equal 1 tab per day senna-docusate sodium (Senokot-S) 8.6-50 MG tablet 1 tablet, Oral, Daily, OTC PO daily tiZANidine (ZANAFLEX) 4 mg, Oral, Every 8 hours PRN Vitamin B-12 5,000 mg, Sublingual, Daily Vraylar 4.5 MG capsule Vraylar 6 mg, Oral, Daily ALLERGIES: Allergies Allergen Reactions Prochlorperazine Unknown Other Reaction(s): Other, Seizure seizures Sulfamethoxazole Rash Other Reaction(s): Other Empagliflozin Other Reaction(s): Not available, Unknown Reaction Keflex [Cephalexin] Nexium [Esomeprazole] GI intolerance Penicillins Phenergan [Promethazine] Prilosec [Omeprazole] GI intolerance Protonix [Pantoprazole] GI intolerance Zolpidem Unknown Other Reaction(s): Unknown Reaction Sulfamethoxazole-Trimethoprim Rash Other Reaction(s): other, Unknown REVIEW OF SYMPTOMS: Review of Systems Constitutional: Negative for appetite change, chills and fever. HENT: Negative for congestion, ear pain and sore throat. Eyes: Negative for pain, discharge, redness and visual disturbance. Respiratory: Negative for cough, shortness of breath and wheezing. Cardiovascular: Negative for chest pain, palpitations and leg swelling. Gastrointestinal: Positive for abdominal pain. Negative for blood in stool, constipation, diarrhea, hematochezia, nausea and vomiting. Genitourinary: Negative for difficulty urinating, dysuria, frequency and hematuria. Musculoskeletal: Positive for arthralgias and back pain. Negative for joint swelling and myalgias. Skin: Negative for rash and wound. Neurological: Negative for dizziness, tremors, seizures, syncope and headaches. Psychiatric/Behavioral: Negative for behavioral problems, self-injury and suicidal ideas. The patient is nervous/anxious. Depression Hematological: Does not bruise/bleed easily. Endocrine: Negative for polydipsia, polyphagia and polyuria. Allergic/Immunologic: Negative for environmental allergies and food allergies. PAST MEDICAL HISTORY Past Medical History: Diagnosis Date Abdominal wall hernia 07/02/2023 Anemia 04/30/2023 Anxiety 2010 Bradycardia 04/30/2023 Chest pain Chronic left shoulder pain Clostridioides difficile diarrhea 07/02/2023 Coronary arteriosclerosis (CMS/HCC) 04/30/2023 COVID-19 Degenerative disc disease, lumbar 07/02/2023 Depression (CMS/HCC) 04/30/2023 Diabetes mellitus, type 2 (CMS/HCC) 04/30/2023 Dyspnea 07/02/2023 Elevated liver enzymes 07/02/2023 Family history of cancer Fatigue GERD (gastroesophageal reflux disease) 04/30/2023 H/O bariatric surgery 07/02/2023 Headache 07/02/2023 History of fusion of cervical spine Hyperkalemia Hyperlipidemia (CMS/HCC) 04/30/2023 Hypertension (CMS/HCC) 04/30/2023 Hypomagnesemia 04/30/2023 Insomnia 07/02/2023 Irritable bowel syndrome with diarrhea 07/02/2023 Lower extremity edema 04/30/2023 Lumbar disc herniation 07/02/2023 Microscopic hematuria 04/30/2023 Migraine headache (CMS/HCC) 04/30/2023 Myalgia Nephrolithiasis 07/02/2023 URIEL (obstructive sleep apnea) 04/30/2023 [id number] condition Restless leg syndrome Seasonal allergies 04/30/2023 Spinal stenosis of lumbar region at multiple levels 04/30/2023 Spinal stenosis of thoracolumbar region 04/30/2023 Stage 3 chronic kidney disease due to type 2 diabetes mellitus (HCC) (CMS/HCC) 04/30/2023 Swelling of both lower extremities 04/30/2023 Past Surgical History: Procedure Laterality Date BACK SURGERY 2021 BARIATRIC SURGERY 2017 COLONOSCOPY HYSTERECTOMY 2010 NECK SURGERY SHOULDER SURGERY Left RC family history includes Cancer in her mother; Depression in her mother; Diabetes in her sister; Heart attack in her father; Heart disease in her brother and father; Hypertension in her sister; Kidney disease in her sister; Stroke in her mother; Vision loss in her mother. OBJECTIVE: Visit Vitals BP 122/88 (BP Location: Left arm, Patient Position: Sitting, BP Cuff Size: Adult long) Pulse 66 Temp 98.7 F (Temporal) Resp 20 Ht 5' 4 Wt 285 lb 12.8 oz SpO2 98% BMI 49.06 kg/m Smoking Status Never BSA 2.42 m Physical Exam Vitals and nursing note reviewed. Constitutional: General: She is not in acute distress. Appearance: Normal appearance. She is obese. She is not ill-appearing, toxic-appearing or diaphoretic. HENT: Head: Normocephalic and atraumatic. Right Ear: External ear normal. Left Ear: External ear normal. Nose: Nose normal. Mouth/Throat: Mouth: Mucous membranes are moist. Eyes: Extraocular Movements: Extraocular movements intact. Conjunctiva/sclera: Conjunctivae normal. Cardiovascular: Rate and Rhythm: Normal rate and regular rhythm. Pulses: Normal pulses. Heart sounds: Normal heart sounds. Pulmonary: Effort: Pulmonary effort is normal. Breath sounds: Normal breath sounds. Abdominal: General: Bowel sounds are normal. There is no distension. Palpations: Abdomen is soft. There is no mass. Tenderness: There is no abdominal tenderness (LLQ pain, no rebound). Musculoskeletal: General: Normal range of motion. Cervical back: Normal range of motion and neck supple. Right lower leg: No edema. Left lower leg: No edema. Comments: Left hip pain with external rotation> internal rotation Skin: General: Skin is warm and dry. Capillary Refill: Capillary refill takes 2 to 3 seconds. Findings: No rash. Neurological: General: No focal deficit present. Mental Status: She is alert and oriented to person, place, and time. Psychiatric: Mood and Affect: Mood normal. Behavior: Behavior normal. Thought Content: Thought content normal. Judgment: Judgment normal. ASSESSMENT AND PLAN: No follow-ups on file. Problem List Items Addressed This Visit Body mass index (BMI) 45.0-49.9, adult ([facility]) Stage 3b chronic kidney disease (HCC) (CMS/HCC) Restless leg syndrome Continue mirapex Morbid (severe) obesity due to excess calories (CMS/HCC) Left lower quadrant abdominal pain - Primary Will check xray to r/o perforation Will treat for diverticulitis: cipro and flagyl Fu if not better Advised no ETOH, as well as NO tizanidine while taking cipro Increase fiber Denies any fever, chills, [place] Will call office if not better after atb If conditions worsens go to the ER Relevant Medications ciprofloxacin (Cipro) 500 MG tablet metroNIDAZOLE (Flagyl) 500 MG tablet Other Relevant Orders XR ABDOMEN 2 VIEW Basic metabolic panel CBC and differential documented in this encounter [facility] 09-11-2023 Note [facility] Chief Complaint: [...] HEAD: atraumatic, normocephal (more content not included)... [facility] 03-14-2023 Note [facility] Note Chief Complaint: [...] Denies chest pain and palpitations. Went to [place] recently and had to sit down in [...] right ventricular systo (more content not included)... [facility] 08-14-2022 Evaluation note Encounter Date Diagnosis [...] - G89.29) Proceed with current treatment plan [facility] Other 03-20-2023 Evaluation note* Encounter Date Diagnosis [...] progress notes from her referring physician Dr Hamilton. I also independently reviewed previous imaging of [...] negative findings were considered in medical decision-making. [facility] Other 03-11-2023 Hospital Discharge instructions Additional Instructions [...] your family doctor for recheck or Dr. Haimlton Return to the ER for more severe pain weakness in your leg loss of bladder bowel control high fever or any other [facility] Work Phone: 1(694) 451-563601-27-2023 Evaluation note* Encounter Date Diagnosis Assessment Notes [...] referral will monty sent to pain managemernt [facility] Other 01-10-2023 Evaluation note* Encounter Date Diagnosis [...] obesity (ICD-10 - E66.01) Encouraged weight loss [facility] Other 10-12-2022 Evaluation note* Encounter Date Diagnosis [...] strap. A prescription was sent to the [facility] for new supplies throughout the year, as [...] sleepiness, or poor response to treatment. . [facility] Other 08-23-2022 Evaluation note* Encounter Date Diagnosis [...] of thoracolumbar intervertebral disc (ICD-10 - M51.25) [facility] Other 07-28-2022 Evaluation note* Encounter Date Diagnosis [...] a med check and PT follow up [facility] Other 06-16-2022 Evaluation note* Encounter Date Diagnosis [...] labor Sep, Thoracic myelopathy (ICD-10 - M47.14) [facility] Other 05-17-2022 Evaluation note* Encounter Date Diagnosis [...] Overall she is making a good recovery [facility] Other evaluation noteNo InformationNortP[facility] [employer] Other evalfpmogo noteNo assessment information available [facility] Work Phone: Evaluation note* Diagnosis [...] disease reso lved Hypertensive nephropathy res olved [facility] Work Phone: Evaluation note* Diagnosis [...] D deficiency acute Hypertensive nephropathy res olved [facility] Work Phone: Evaluation note* Diagnosis Primary hypertension (CMS/HCC)- Primary Unspecified essential hypertension Gastroesophageal reflux disease, unspecified whether esophagitis present Microscopic hematuria Lower extremity edema Edema Type 2 diabetes mellitus without complication, without long-term current use of insulin ([facility]) Stage 3 chronic kidney disease due to type 2 diabetes mellitus (HCC) ([facility]) Mixed hyperlipidemia ([facility]) Mixed hyperlipidemia Migraine without aura and without status migrainosus, not intractable ([facility]) Encounter for screening mammogram for malignant neoplasm of breast Colon cancer screening Special screening for malignant neoplasms, colon BMI 50.0-59.9, adult ([facility] [place] [place]) Heel pain, bilateral Type 2 diabetes mellitus without complication, without long-term current use of insulin ([facility])- Primary History of anuria Stage 3 chronic kidney disease due to type 2 diabetes mellitus (HCC) ([facility]) BMI 50.0-59.9, adult ([facility] [place] [place]) URIEL (obstructive sleep apnea) Obstructive sleep apnea (adult) (pediatric) Primary hypertension ([facility]) Unspecified essential hypertension Chronic diastolic heart failure ([facility]) Chronic diastolic heart failure Depression, unspecified depression type ([facility] [place] [place]) Type 2 diabetes mellitus without complication, without long-term current use of insulin ([facility])- Primary Stage 3 chronic kidney disease due to type 2 diabetes mellitus (HCC) ([facility]) BMI 50.0-59.9, adult ([facility]) Lower extremity edema Edema Dental infection- Primary Type 2 diabetes mellitus with stage 3 chronic kidney disease, without long-term current use of insulin, unspecified whether stage 3a or 3b CKD (HCC) ([facility] [place] [place])- Primary Bipolar affective disorder, remission status unspecified ([facility]) Restless leg syndrome Restless legs syndrome (RLS) URIEL (obstructive sleep apnea) Obstructive sleep apnea (adult) (pediatric) Primary hypertension ([facility]) Unspecified essential hypertension Chronic diastolic heart failure ([facility]) Chronic diastolic heart failure Stage 3 chronic kidney disease due to type 2 diabetes mellitus (HCC) ([facility]) Seasonal allergies Allergic rhinitis, cause unspecified BMI 50.0-59.9, adult ([facility]) Type 2 diabetes mellitus with stage 4 chronic kidney disease, without long-term current use of insulin ([facility] [place] [place])- Primary Type 2 diabetes mellitus without complication, without long-term current use of insulin ([facility]) Left lower quadrant abdominal pain- Primary Morbid (severe) obesity due to excess calories ([facility]) Body mass index (BMI) 45.0-49.9, adult ([facility]) Restless leg syndrome Restless legs syndrome (RLS) Stage 3b chronic kidney disease (HCC) ([facility]) Type 2 diabetes mellitus with other circulatory complications ([facility])- Primary Type 2 diabetes mellitus with stage 4 chronic kidney disease, without long-term current use of insulin ([facility]) Type 2 diabetes mellitus with stage 3a chronic kidney disease, without long-term current use of insulin (HCC) ([facility]) Class 3 severe obesity due to excess calories with serious comorbidity and body mass index (BMI) of 45.0 to 49.9 in adult ([facility]) documented in this encounter [facility] HealthcareEvaluation note* Diagnosis Primary hypertension ([facility])- Primary Unspecified essential hypertension Gastroesophageal reflux disease, unspecified whether esophagitis present Microscopic hematuria Lower extremity edema Edema Type 2 diabetes mellitus without complication, without long-term current use of insulin ([facility]) Stage 3 chronic kidney disease due to type 2 diabetes mellitus (HCC) ([facility]) Mixed hyperlipidemia ([facility]) Mixed hyperlipidemia Migraine without aura and without status migrainosus, not intractable ([facility]) Encounter for screening mammogram for malignant neoplasm of breast Colon cancer screening Special screening for malignant neoplasms, colon BMI 50.0-59.9, adult ([facility]) Heel pain, bilateral Type 2 diabetes mellitus without complication, without long-term current use of insulin ([facility])- Primary History of anuria Stage 3 chronic kidney disease due to type 2 diabetes mellitus (HCC) ([facility]) BMI 50.0-59.9, adult ([facility]) URIEL (obstructive sleep apnea) Obstructive sleep apnea (adult) (pediatric) Primary hypertension ([facility]) Unspecified essential hypertension Chronic diastolic heart failure ([facility]) Chronic diastolic heart failure Depression, unspecified depression type ([facility]) Type 2 diabetes mellitus without complication, without long-term current use of insulin ([facility])- Primary Stage 3 chronic kidney disease due to type 2 diabetes mellitus (HCC) ([facility]) BMI 50.0-59.9, adult ([facility]) Lower extremity edema Edema Dental infection- Primary Type 2 diabetes mellitus with stage 3 chronic kidney disease, without long-term current use of insulin, unspecified whether stage 3a or 3b CKD ([facility]) ([facility])- Primary Bipolar affective disorder, remission status unspecified ([facility]) Restless leg syndrome Restless legs syndrome (RLS) URIEL (obstructive sleep apnea) Obstructive sleep apnea (adult) (pediatric) Primary hypertension ([facility]) Unspecified essential hypertension Chronic diastolic heart failure ([facility]) Chronic diastolic heart failure Stage 3 chronic kidney disease due to type 2 diabetes mellitus (HCC) ([facility]) Seasonal allergies Allergic rhinitis, cause unspecified BMI 50.0-59.9, adult ([facility]) Type 2 diabetes mellitus with stage 4 chronic kidney disease, without long-term current use of insulin ([facility])- Primary Type 2 diabetes mellitus without complication, without long-term current use of insulin ([facility]) Left lower quadrant abdominal pain- Primary Morbid (severe) obesity due to excess calories ([facility]) Body mass index (BMI) 45.0-49.9, adult ([facility]) Restless leg syndrome Restless legs syndrome (RLS) Stage 3b chronic kidney disease (HCC) ([facility]) Type 2 diabetes mellitus with other circulatory complications ([facility])- Primary Type 2 diabetes mellitus with stage 4 chronic kidney disease, without long-term current use of insulin ([facility]) Type 2 diabetes mellitus with stage 3a chronic kidney disease, without long-term current use of insulin (HCC) ([facility]) Class 3 severe obesity due to excess calories with serious comorbidity and body mass index (BMI) of 45.0 to 49.9 in adult ([facility]) Muscle spasm Spasm of muscle documented in this encounter [facility] HealthcareEvaluation note* Diagnosis Primary hypertension ([facility])- Primary Unspecified essential hypertension Gastroesophageal reflux disease, unspecified whether esophagitis present Microscopic hematuria Lower extremity edema Edema Type 2 diabetes mellitus without complication, without long-term current use of insulin ([facility]) Stage 3 chronic kidney disease due to type 2 diabetes mellitus (HCC) ([facility]) Mixed hyperlipidemia ([facility]) Mixed hyperlipidemia Migraine without aura and without status migrainosus, not intractable ([facility]) Encounter for screening mammogram for malignant neoplasm of breast Colon cancer screening Special screening for malignant neoplasms, colon BMI 50.0-59.9, adult ([facility]) Heel pain, bilateral Type 2 diabetes mellitus without complication, without long-term current use of insulin ([facility])- Primary History of anuria Stage 3 chronic kidney disease due to type 2 diabetes mellitus (HCC) ([facility]) BMI 50.0-59.9, adult ([facility]) URIEL (obstructive sleep apnea) Obstructive sleep apnea (adult) (pediatric) Primary hypertension ([facility]) Unspecified essential hypertension Chronic diastolic heart failure ([facility]) Chronic diastolic heart failure Depression, unspecified depression type ([facility]) Type 2 diabetes mellitus without complication, without long-term current use of insulin ([facility])- Primary Stage 3 chronic kidney disease due to type 2 diabetes mellitus (HCC) ([facility]) BMI 50.0-59.9, adult ([facility]) Lower extremity edema Edema Dental infection- Primary Type 2 diabetes mellitus with stage 3 chronic kidney disease, without long-term current use of insulin, unspecified whether stage 3a or 3b CKD (HCC) ([facility])- Primary Bipolar affective disorder, remission status unspecified ([facility]) Restless leg syndrome Restless legs syndrome (RLS) URIEL (obstructive sleep apnea) Obstructive sleep apnea (adult) (pediatric) Primary hypertension ([facility]) Unspecified essential hypertension Chronic diastolic heart failure ([facility]) Chronic diastolic heart failure Stage 3 chronic kidney disease due to type 2 diabetes mellitus (HCC) ([facility]) Seasonal allergies Allergic rhinitis, cause unspecified BMI 50.0-59.9, adult ([facility]) Type 2 diabetes mellitus with stage 4 chronic kidney disease, without long-term current use of insulin ([facility])- Primary Type 2 diabetes mellitus without complication, without long-term current use of insulin ([facility]) Left lower quadrant abdominal pain- Primary Morbid (severe) obesity due to excess calories ([facility]) Body mass index (BMI) 45.0-49.9, adult ([facility]) Restless leg syndrome Restless legs syndrome (RLS) Stage 3b chronic kidney disease (HCC) ([facility]) Type 2 diabetes mellitus with other circulatory complications ([facility])- Primary Type 2 diabetes mellitus with stage 4 chronic kidney disease, without long-term current use of insulin ([facility]) Type 2 diabetes mellitus with stage 3a chronic kidney disease, without long-term current use of insulin (HCC) ([facility] [place] [place]) Class 3 severe obesity due to excess calories with serious comorbidity and body mass index (BMI) of 45.0 to 49.9 in adult [facility] Primary hypertension ([facility]/H[facility])- Primary Unspecified essential hypertension Spinal stenosis of lumbar region at multiple levels Restless leg syndrome Restless legs syndrome (RLS) URIEL (obstructive sleep apnea) Obstructive sleep apnea (adult) (pediatric) Coronary arteriosclerosis ([facility]) Coronary atherosclerosis of unspecified type of vessel, [place] or graft Stage 3b chronic kidney disease (HCC) ([facility]) Swelling of both lower extremities Lower extremity edema Edema Type 2 diabetes mellitus with stage 3a chronic kidney disease, without long-term current use of insulin (HCC) ([facility]) Class 3 severe obesity due to excess calories with serious comorbidity and body mass index (BMI) of 45.0 to 49.9 in adult ([facility]) Bipolar affective disorder, remission status unspecified ([facility] [facility]) Generalized anxiety disorder ([facility]) Generalized anxiety disorder Vitamin D deficiency Vitamin B12 deficiency Other B-complex deficiencies H/O bariatric surgery Acute non-recurrent pansinusitis documented in this encounter [facility] HealthcareEvaluation note* Diagnosis Primary hypertension ([facility])- Primary Unspecified essential hypertension Gastroesophageal reflux disease, unspecified whether esophagitis present Microscopic hematuria Lower extremity edema Edema Type 2 diabetes mellitus without complication, without long-term current use of insulin ([facility]) Stage 3 chronic kidney disease due to type 2 diabetes mellitus (HCC) ([facility]) Mixed hyperlipidemia ([facility]) Mixed hyperlipidemia Migraine without aura and without status migrainosus, not intractable ([facility]) Encounter for screening mammogram for malignant neoplasm of breast Colon cancer screening Special screening for malignant neoplasms, colon BMI 50.0-59.9, adult ([facility]) Heel pain, bilateral Type 2 diabetes mellitus without complication, without long-term current use of insulin ([facility])- Primary History of anuria Stage 3 chronic kidney disease due to type 2 diabetes mellitus (HCC) ([facility]) BMI 50.0-59.9, adult ([facility]) URIEL (obstructive sleep apnea) Obstructive sleep apnea (adult) (pediatric) Primary hypertension ([facility]) Unspecified essential hypertension Chronic diastolic heart failure ([facility]) Chronic diastolic heart failure Depression, unspecified depression type ([facility]) Type 2 diabetes mellitus without complication, without long-term current use of insulin ([facility])- Primary Stage 3 chronic kidney disease due to type 2 diabetes mellitus (HCC) ([facility]) BMI 50.0-59.9, adult ([facility]) Lower extremity edema Edema Dental infection- Primary Type 2 diabetes mellitus with stage 3 chronic kidney disease, without long-term current use of insulin, unspecified whether stage 3a or 3b CKD (HCC) ([facility])- Primary Bipolar affective disorder, remission status unspecified ([facility] [place] [place]) Restless leg syndrome Restless legs syndrome (RLS) URIEL (obstructive sleep apnea) Obstructive sleep apnea (adult) (pediatric) Primary hypertension ([facility]) Unspecified essential hypertension Chronic diastolic heart failure ([facility]) Chronic diastolic heart failure Stage 3 chronic kidney disease due to type 2 diabetes mellitus ([facility]) ([facility] [place] [place]) Seasonal allergies Allergic rhinitis, cause unspecified BMI 50.0-59.9, adult ([facility] [place] [place]) Type 2 diabetes mellitus with stage 4 chronic kidney disease, without long-term current use of insulin ([facility] [place] [place])- Primary Type 2 diabetes mellitus without complication, without long-term current use of insulin ([facility]) Left lower quadrant abdominal pain- Primary Morbid (severe) obesity due to excess calories ([facility]) Body mass index (BMI) 45.0-49.9, adult ([facility] [place] [place]) Restless leg syndrome Restless legs syndrome (RLS) Stage 3b chronic kidney disease (HCC) ([facility] [place] [place]) Type 2 diabetes mellitus with other circulatory complications ([facility] [place] [place])- Primary Type 2 diabetes mellitus with stage 4 chronic kidney disease, without long-term current use of insulin ([facility] [place] [place]) Type 2 diabetes mellitus with stage 3a chronic kidney disease, without long-term current use of insulin ([facility]) ([facility] [place] [place]) Class 3 severe obesity due to excess calories with serious comorbidity and body mass index (BMI) of 45.0 to 49.9 in adult ([facility]) Primary hypertension ([facility])- Primary Unspecified essential hypertension Spinal stenosis of lumbar region at multiple levels Restless leg syndrome Restless legs syndrome (RLS) URIEL (obstructive sleep apnea) Obstructive sleep apnea (adult) (pediatric) Coronary arteriosclerosis ([facility]) Coronary atherosclerosis of unspecified type of vessel, [place] or graft Stage 3b chronic kidney disease (HCC) ([facility]) Swelling of both lower extremities Lower extremity edema Edema Type 2 diabetes mellitus with stage 3a chronic kidney disease, without long-term current use of insulin (HCC) ([facility] [place] [place]) Class 3 severe obesity due to excess calories with serious comorbidity and body mass index (BMI) of 45.0 to 49.9 in adult ([facility]) Bipolar affective disorder, remission status unspecified ([facility] [place] [place]) Generalized anxiety disorder ([facility]) Generalized anxiety disorder Vitamin D deficiency Vitamin B12 deficiency Other B-complex deficiencies H/O bariatric surgery Acute non-recurrent pansinusitis Restless leg syndrome Restless legs syndrome (RLS) documented in this encounter [facility]* Diagnosis Left lower quadrant abdominal pain- Primary Morbid (severe) obesity due to excess calories ([facility]) Body mass index (BMI) 45.0-49.9, adult ([facility]) Restless leg syndrome Restless legs syndrome (RLS) Stage 3b chronic kidney disease (HCC) ([facility] [place] [place]) documented in this encounter [facility]* Diagnosis Muscle spasm Spasm of muscle documented in this encounter [facility]* Diagnosis Restless leg syndrome Restless legs syndrome (RLS) documented in this encounter [facility]* Diagnosis Antibiotic-induced yeast infection- Primary documented in this encounter [facility]* Diagnosis Type 2 diabetes mellitus with stage 4 chronic kidney disease, without long-term current use of insulin ([facility] [place] [place])- Primary documented in this encounter [facility]* Diagnosis Primary hypertension ([facility] [place] [place]) Unspecified essential hypertension documented in this encounter [facility]* Diagnosis Primary hypertension ([facility])- Primary Unspecified essential hypertension Gastroesophageal reflux disease, unspecified whether esophagitis present Microscopic hematuria Lower extremity edema Edema Type 2 diabetes mellitus without complication, without long-term current use of insulin ([facility] [place] [place]) Stage 3 chronic kidney disease due to type 2 diabetes mellitus (HCC) ([facility] [place] [place]) Mixed hyperlipidemia ([facility] [place] [place]) Mixed hyperlipidemia Migraine without aura and without status migrainosus, not intractable ([facility] [place] [place]) Encounter for screening mammogram for malignant neoplasm of breast Colon cancer screening Special screening for malignant neoplasms, colon BMI 50.0-59.9, adult ([facility] [place] [place]) Heel pain, bilateral Type 2 diabetes mellitus without complication, without long-term current use of insulin ([facility] [place] [place])- Primary History of anuria Stage 3 chronic kidney disease due to type 2 diabetes mellitus (HCC) ([facility] [place] [place]) BMI 50.0-59.9, adult ([facility] [place] [place]) URIEL (obstructive sleep apnea) Obstructive sleep apnea (adult) (pediatric) Primary hypertension ([facility]) Unspecified essential hypertension Chronic diastolic heart failure ([facility]) Chronic diastolic heart failure Depression, unspecified depression type ([facility]) Type 2 diabetes mellitus without complication, without long-term current use of insulin ([facility])- Primary Stage 3 chronic kidney disease due to type 2 diabetes mellitus (HCC) ([facility]) BMI 50.0-59.9, adult ([facility]) Lower extremity edema Edema Dental infection- Primary Type 2 diabetes mellitus with stage 3 chronic kidney disease, without long-term current use of insulin, unspecified whether stage 3a or 3b CKD ([facility]) ([facility])- Primary Bipolar affective disorder, remission status unspecified ([facility] [place] [place]) Restless leg syndrome Restless legs syndrome (RLS) URIEL (obstructive sleep apnea) Obstructive sleep apnea (adult) (pediatric) Primary hypertension ([facility]) Unspecified essential hypertension Chronic diastolic heart failure ([facility]) Chronic diastolic heart failure Stage 3 chronic kidney disease due to type 2 diabetes mellitus ([facility]) ([facility] [place] [place]) Seasonal allergies Allergic rhinitis, cause unspecified BMI 50.0-59.9, adult ([facility]) Type 2 diabetes mellitus with stage 4 chronic kidney disease, without long-term current use of insulin ([facility] [place] [place])- Primary Type 2 diabetes mellitus without complication, without long-term current use of insulin ([facility] [place] [place]) Left lower quadrant abdominal pain- Primary Morbid (severe) obesity due to excess calories ([facility]) Body mass index (BMI) 45.0-49.9, adult ([facility] [place] [place]) Restless leg syndrome Restless legs syndrome (RLS) Stage 3b chronic kidney disease (HCC) ([facility] [place] [place]) Type 2 diabetes mellitus with other circulatory complications ([facility] [place] [place])- Primary Type 2 diabetes mellitus with stage 4 chronic kidney disease, without long-term current use of insulin ([facility] [place] [place]) Type 2 diabetes mellitus with stage 3a chronic kidney disease, without long-term current use of insulin ([facility]) ([facility] [place] [place]) Class 3 severe obesity due to excess calories with serious comorbidity and body mass index (BMI) of 45.0 to 49.9 in adult ([facility]) Primary hypertension ([facility])- Primary Unspecified essential hypertension Spinal stenosis of lumbar region at multiple levels Restless leg syndrome Restless legs syndrome (RLS) URIEL (obstructive sleep apnea) Obstructive sleep apnea (adult) (pediatric) Coronary arteriosclerosis ([facility]) Coronary atherosclerosis of unspecified type of vessel, [place] or graft Stage 3b chronic kidney disease (HCC) ([facility]) Swelling of both lower extremities Lower extremity edema Edema Type 2 diabetes mellitus with stage 3a chronic kidney disease, without long-term current use of insulin (HCC) ([facility]) Class 3 severe obesity due to excess calories with serious comorbidity and body mass index (BMI) of 45.0 to 49.9 in adult ([facility]) Bipolar affective disorder, remission status unspecified ([facility]) Generalized anxiety disorder ([facility]) Generalized anxiety disorder Vitamin D deficiency Vitamin B12 deficiency Other B-complex deficiencies H/O bariatric surgery Acute non-recurrent pansinusitis Muscle spasm Spasm of muscle documented in this encounter [facility]* Diagnosis Primary hypertension ([facility])- Primary Unspecified essential hypertension Gastroesophageal reflux disease, unspecified whether esophagitis present Microscopic hematuria Lower extremity edema Edema Type 2 diabetes mellitus without complication, without long-term current use of insulin ([facility]) Stage 3 chronic kidney disease due to type 2 diabetes mellitus (HCC) ([facility]) Mixed hyperlipidemia ([facility]) Mixed hyperlipidemia Migraine without aura and without status migrainosus, not intractable ([facility]) Encounter for screening mammogram for malignant neoplasm of breast Colon cancer screening Special screening for malignant neoplasms, colon BMI 50.0-59.9, adult ([facility]) Heel pain, bilateral Type 2 diabetes mellitus without complication, without long-term current use of insulin ([facility])- Primary History of anuria Stage 3 chronic kidney disease due to type 2 diabetes mellitus (HCC) ([facility]) BMI 50.0-59.9, adult ([facility]) URIEL (obstructive sleep apnea) Obstructive sleep apnea (adult) (pediatric) Primary hypertension ([facility]) Unspecified essential hypertension Chronic diastolic heart failure ([facility]) Chronic diastolic heart failure Depression, unspecified depression type ([facility]) Type 2 diabetes mellitus without complication, without long-term current use of insulin ([facility])- Primary Stage 3 chronic kidney disease due to type 2 diabetes mellitus (HCC) ([facility]) BMI 50.0-59.9, adult ([facility]) Lower extremity edema Edema Dental infection- Primary Type 2 diabetes mellitus with stage 3 chronic kidney disease, without long-term current use of insulin, unspecified whether stage 3a or 3b CKD ([facility]) ([facility])- Primary Bipolar affective disorder, remission status unspecified ([facility]) Restless leg syndrome Restless legs syndrome (RLS) URIEL (obstructive sleep apnea) Obstructive sleep apnea (adult) (pediatric) Primary hypertension ([facility]) Unspecified essential hypertension Chronic diastolic heart failure ([facility]) Chronic diastolic heart failure Stage 3 chronic kidney disease due to type 2 diabetes mellitus ([facility]) ([facility]) Seasonal allergies Allergic rhinitis, cause unspecified BMI 50.0-59.9, adult ([facility]) Type 2 diabetes mellitus with stage 4 chronic kidney disease, without long-term current use of insulin ([facility])- Primary Type 2 diabetes mellitus without complication, without long-term current use of insulin ([facility]) Left lower quadrant abdominal pain- Primary Morbid (severe) obesity due to excess calories ([facility]) Body mass index (BMI) 45.0-49.9, adult ([facility] [place] [place]) Restless leg syndrome Restless legs syndrome (RLS) Stage 3b chronic kidney disease (HCC) ([facility]) Type 2 diabetes mellitus with other circulatory complications ([facility])- Primary Type 2 diabetes mellitus with stage 4 chronic kidney disease, without long-term current use of insulin ([facility]) Type 2 diabetes mellitus with stage 3a chronic kidney disease, without long-term current use of insulin ([facility]) ([facility]) Class 3 severe obesity due to excess calories with serious comorbidity and body mass index (BMI) of 45.0 to 49.9 in adult ([facility]) Primary hypertension ([facility])- Primary Unspecified essential hypertension Spinal stenosis of lumbar region at multiple levels Restless leg syndrome Restless legs syndrome (RLS) URIEL (obstructive sleep apnea) Obstructive sleep apnea (adult) (pediatric) Coronary arteriosclerosis ([facility]) Coronary atherosclerosis of unspecified type of vessel, [place] or graft Stage 3b chronic kidney disease (HCC) ([facility]) Swelling of both lower extremities Lower extremity edema Edema Type 2 diabetes mellitus with stage 3a chronic kidney disease, without long-term current use of insulin ([facility]) ([facility]) Class 3 severe obesity due to excess calories with serious comorbidity and body mass index (BMI) of 45.0 to 49.9 in adult ([facility]) Bipolar affective disorder, remission status unspecified ([facility]) Generalized anxiety disorder ([facility]) Generalized anxiety disorder Vitamin D deficiency Vitamin B12 deficiency Other B-complex deficiencies H/O bariatric surgery Acute non-recurrent pansinusitis Class 2 severe obesity due to excess calories with serious comorbidity and body mass index (BMI) of 38.0 to 38.9 in adult ([facility])- Primary Type 2 diabetes mellitus with other circulatory complications ([facility]) Type 2 diabetes mellitus with stage 3a chronic kidney disease, without long-term current use of insulin (HCC) ([facility]) documented in this encounter [facility] HealthcareHistory general Narrative - Reported* Type Description Date [...] History Tonsilectomy Teenager Hospitalization History See Above [facility] Other History general Narrative - Reported* Type [...] BACK SURGERY 07/2021 Hospitalization History See Above [facility] Other Summary Purpose Family History No Family [...] 2018 4:43pm Hospital Course Note MR#: [id number] [facility] Pt. Name: Sherly Humphreys Admitted: 08/23/2018 Discharged: [...] Diagnosis 1 Thoracic myelopathy (M47.14) Referral Organization [facility] Ne urosurgery Referring Provider First Name Christian Referring Provider Last Name Alfonso Referring Provider Specialty Neurologica l Surgery Referred Organization [facility] Pain Managemen t Referred Provider Ivan Sams Referred Address [address],[id number] Referred Provider Specialty Pain Medicin e Referral [...] Low back pain (M54.5 ) Referral Organization [facility] urosurgery Referring Provider First Name Christian [...] and content) DATE CREATED AUTHOR 11/22/2018 [facility] DATE CREATED AUTHOR AUTHOR'S ORGANIZ ATION 09/22/2022 [facility] DATE CREATED AUTHOR AUTHOR'S ORGANIZ ATION 05/26/2023 [facility] DATE CREATED AUTHOR AUTHOR'S ORGANIZ ATION 12/14/2023 [facility] DATE CREATED AUTHOR AUTHOR'S ORGANIZ ATION 12/19/2023 [facility] DATE CREATED AUTHOR AUTHOR'S ORGANIZ ATION 03/30/2024 [facility] DATE CREATED AUTHOR AUTHOR'S ORGANIZ ATION 06/17/2024 [facility] EPIC REASON FOR VISIT (unrecogniz ed section and content) Reason Comments Diabetes Reason Comments Med Refill Care Teams (unrecognized sec tion and content) [...] Status: Inactive Member Role Status Dates [facility] Active Christian Hamilton MD Attending Provider Active Team Status: Inactive Member Role Status Dates [facility] Active Emma Bolivar NP Attending Provider Active Team Status: Inactive Member Role Status [facility] Active Merissa Hernandez [facility] Emergency Provider Active Team Status: Inactive Member Role Status Dates [facility] Provider Active Sta rt: August 15, 2023 End: August 15, 2023 Halle Mac MD Attending Provider Active Star t: August 15, 2023 End: August 15, 2023 Team Status: Active Member Role Status Dates [facility] Provider Active Sta rt: September 03, 2023 Valdemar Alonso MD Attending Provider Active Start: September 03, 2023 Team Status: Inactive Member Role Status Dates [facility] Provider Active Sta rt: October 01, 2023 End: October 02, 2023 Alma Deng MD Admit Provider Active Start: October 01, 2023 End: October 02, 2023 Des Benitez MD Other Provider Active Start: 2023 End: October 02, 2023 Fernando Rosenberg MD Attending Provider Active Start: October 01, 2023 End: October 02, 2023 Team Status: Active Member Role Status Dates [facility] Provider Active Sta rt: October 01, 2023 Alma Deng MD Admit Provider Active Start: October 01, 2023 Des Benitez MD Attending Provider, Other Provider Active Start: October 01, 2023 Fernando Rosenberg MD Other Provider Active Start: October 01, 2023 Team Status: Inactive Member Role Status Dates [facility] Provider Active Sta rt: October [...] Inactive Member Role Status Dates [facility] Primary Care Provider Active Sta rt: October [...] Lew Primary Care Provider Active Sta rt: November 01, 2023 End: November 01, 2023 Ban Clemente MD Attending Provider Active Sta rt: November 01, 2023 End: November 01, 2023 Practice Advisor Relationship Specialty Start Date End Date Markel Haq MD [address] [place] [id number] PCP - General Family Medicine 05/03/23 Janene Lew NP [address] [place] [id number] PCP - [place] [employer] 09/15/23 Practice Advisor Relationship Specialty Start Date End Date Markel Haq MD [address] [place] [address] PCP - General Family Medicine 05/03/23 Janene Lew NP [address] [place] [address] PCP - [place] [employer] 09/15/23 Practice Advisor Relationship Specialty Start Date End Date Markel Haq MD [address] [place] [address] PCP - General Family Medicine 05/03/23 Janene Lew NP [address] [place] [address] PCP - [place] [employer] 09/15/23 Practice Advisor Relationship Specialty Start Date End Date Markel aHq MD [address] [place] [phone] PCP - General Family Medicine 05/03/23 Janene Lew NP [address] [place] [address] PCP - [place] [employer] 09/15/23 Practice Advisor Relationship Specialty Start Date End Date Markel Haq MD [address] [place] [address] PCP - General Family Medicine 05/03/23 Janene Lew NP [address] [place] [address] PCP - [place] [employer] 09/15/23 Practice Advisor Relationship Specialty Start Date End Date Markel Haq MD [address] [place] [address] PCP - General Family Medicine 05/03/23 Janene Lew NP [address] [place] [address] PCP - [place] [employer] 09/15/23 Practice Advisor Relationship Specialty Start Date End Date Markel Haq MD [address] [place] [phone] PCP - General Family Medicine 05/03/23 Janene Lew NP [address] [place] [address] PCP - [place] [employer] 09/15/23 Practice Advisor Relationship Specialty Start Date End Date Markel Haq MD [address] [place] [address] PCP - General Family Medicine 05/03/23 Janene Lew NP [address] [place] [address] PCP - [place] [employer] 09/15/23 Practice Advisor Relationship Specialty Start Date End Date Markel Haq MD [address] [place] [address] PCP - General Family Medicine 05/03/23 Janene Lew NP [address] [place] [address] PCP - [place] [employer] 09/15/23 Practice Advisor Relationship Specialty Start Date End Date Markel Haq MD [address] [place] [address] PCP - General Family Medicine 05/03/23 Janene Lew NP [address] [place] [address] PCP - [place] [employer] 09/15/23 Practice Advisor Relationship Specialty Start Date End Date Markel Haq MD [address] [place] [address] PCP - General Family Medicine 05/03/23 Janeen Lew NP [address] [place] [address] PCP - [place] [employer] 09/15/23 Practice Advisor Relationship Specialty Start Date End Date Markel Haq MD [address] [place] [phone] PCP - General Family Medicine 05/03/23 Janene Lew NP [address] [place] [address] PCP - [place] [employer] 09/15/23 Practice Advisor Relationship Specialty Start Date End Date Markel Haq MD [address] [place] [address] PCP - General Family Medicine 05/03/23 Janene Lew NP [address] [place] [address] PCP - [place] [employer] 09/15/23 Practice Advisor Relationship Specialty Start Date End Date Markel Haq MD [address] [place] [address] PCP - General Family Medicine 05/03/23 Janene Lew NP [address] [place] [phone] PCP - [place] [employer] 09/15/23 Goals (unrecognized section and content) Goals may [...] BE BASED ON THE PRIMARY CLINICAL RECORDS. [employer] provides no warranty or guarantee of the accuracy or completeness of information in this document.
[2024-07-05] MEDS: OXYCODONE HCL/ACETAMINOPHEN 5MG/325MG 1 TAB PO (10:22)
--- NOTE | 2024-07-05 10:23 | PC.NURSE ---
left shoulder pain and right side pain, no bruising or selling observed. limited ROM d/t pain. medicated for pain prior to imaging
--- NOTE | 2024-07-05 11:58 | ED_ITS ---
HPI HPI - General Adult General Chief complaint: Extremity Injury, Upper Stated complaint: UPPER EXTREMITY PAIN - FALL Time Seen by Provider: 07/05/24 10:09 History of Present Illness HPI narrative: The patient is coming to the ER with left shoulder pain as well as right-sided posterior chest wall pain that started yesterday after she was standing on her porch and she fell forward, patient did not directly to her back and she did not directly hit her shoulder but she fell forward face down She did not hit her head she had no loss of consciousness The patient pain in the posterior back is only whenever she take a deep breath or moves and it not radiating down her legs Left shoulder pain showing some limitation movement of the left shoulder due to pain The patient have a history of rotator cuff surgery in that same shoulder Related Data Home Medications ?Medication ?Instructions ?Recorded ?Confirmed amlodipine 10 mg tablet 10 mg PO QDAY 12/18/22 12/03/23 aripiprazole 10 mg tablet 10 mg PO QDAY 12/18/22 12/03/23 aspirin 81 mg chewable tablet 81 mg PO QDAY 12/18/22 12/03/23 atorvastatin 80 mg tablet 80 mg PO QDAY 12/18/22 12/03/23 buspirone 30 mg tablet 30 mg PO BID 12/18/22 12/03/23 cariprazine 6 mg capsule (Vraylar) 6 mg PO Q24H 12/18/22 12/03/23 fenofibrate nanocrystallized 145 145 mg PO QDAY 12/18/22 12/03/23 mg tablet furosemide 20 mg tablet 40 mg PO QDAY 12/18/22 12/03/23 gabapentin 600 mg tablet 600 mg PO QDAY PRN neuromuscular 12/18/22 12/03/23 blockade isosorbide mononitrate 30 mg 30 mg PO QDAY 12/18/22 12/03/23 tablet,extended release 24 hr metoprolol succinate 25 mg 12.5 mg PO QDAY 12/18/22 12/03/23 tablet,extended release 24 hr pioglitazone 45 mg tablet 45 mg PO QDAY 12/18/22 12/03/23 sacubitril 49 mg-valsartan 51 mg 1 tab PO BID 12/18/22 12/03/23 tablet (Entresto) spironolactone 25 mg tablet 25 mg PO QDAY 12/18/22 12/03/23 tizanidine 4 mg tablet 4 mg PO Q8H PRN muscle spasticity 12/18/22 12/03/23 cetirizine 10 mg tablet (Zyrtec) 10 mg PO DAILY PRN allergy symptoms 01/01/23 12/03/23 ferrous sulfate 134 mg (27 mg 134 mg PO DAILY 01/01/23 12/03/23 iron) tablet (High Potency Iron) fluoxetine 10 mg capsule (Prozac) 10 mg PO DAILY 09/24/23 12/03/23 diazepam 10 mg tablet 10 mg PO PRN sedation 12/03/23 Previous Rx's ?Medication ?Instructions ?Recorded oxycodone-acetaminophen 7.5 mg-325 1 tab PO BID PRN pain #60 tabs 10/23/23 mg tablet (Percocet) oxycodone-acetaminophen 7.5 mg-325 1 tab PO BID PRN pain #60 tabs 12/21/23 mg tablet (Endocet) oxycodone-acetaminophen 7.5 mg-325 1 tab PO BID PRN pain #60 tabs 01/23/24 mg tablet (Percocet) oxycodone-acetaminophen 7.5 mg-325 1 tab PO BID PRN pain #60 tabs 02/20/24 mg tablet (Percocet) oxycodone-acetaminophen 7.5 mg-325 1 tab PO BID PRN pain #60 tabs 03/24/24 mg tablet (Percocet) oxycodone-acetaminophen 7.5 mg-325 1 tab PO BID PRN pain #60 tabs 04/22/25 mg tablet (Percocet) oxycodone-acetaminophen 7.5 mg-325 1 tab PO BID PRN pain #60 tabs //25 mg tablet (Percocet) oxycodone-acetaminophen 7.5 mg-325 1 tab PO BID PRN pain #60 tabs 06/20/25 mg tablet (Percocet) Allergies Allergy/AdvReac Type Severity Reaction Status Date / Time Sulfa (Sulfonamide Allergy Mild Hives Verified 12/03/23 10:09 Antibiotics) prochlorperazine (From AdvReac Intermediate Agitated Verified 12/03/23 10:09 Compazine) promethazine (From Phenergan) AdvReac Intermediate Agitated Verified 12/03/23 10:09 sulfamethoxazole (From AdvReac Mild Hives Verified 12/03/23 10:09 Bactrim) trimethoprim (From Bactrim) AdvReac Mild Hives Verified 12/03/23 10:09 Opioid HPI Opioid Management Most Recent Opioid Data: Last Pain Scale 8 12/03/23 10:11 12/03/23 Review of Systems ROS Status of ROS 10 or more systems reviewed and unremark able except as noted in history and below PFSH PFSH Medical History Bipolar 1 disorder ?F31.9 - Bipolar disorder, unspecified (ICD-10) Anxiety ?F41.9 - Anxiety disorder, unspecified (ICD-10) Diabetes ?E11.9 - Type 2 diabetes mellitus without complications (ICD-10) URIEL on CPAP ?G47.33 - Obstructive sleep apnea (adult) (pediatric) (ICD-10) Sleep apnea ?G47.30 - Sleep apnea, unspecified (ICD-10) High cholesterol ?E78.00 - Pure hypercholesterolemia, unspecified (ICD-10) CHF (congestive heart failure) ?I50.9 - Heart failure, unspecified (ICD-10) Surgical History History of hysterectomy ?Z90.710 - Acquired absence of both cervix and uterus (ICD-10) History of shoulder surgery ?Z98.890 - Other specified postprocedural states (ICD-10) History of neck surgery ?Z98.890 - Other specified postprocedural states (ICD-10) History of back surgery ?Z98.890 - Other specified postprocedural states (ICD-10) History of heart artery stent ?Z95.5 - Presence of coronary angioplasty implant and graft (ICD-10) Social History Smoking status: Never smoker Little interest or pleasure in doing things: not at all Feeling down, depressed, or hopeless: not at all Exam Narrative Exam Narrative: Nurses notes and vital signs reviewed and patient is not hypoxic. General: Well-appearing and in no apparent distress. Skin: Warm, dry, no pallor noted. No rash. Head: Normocephalic, atraumatic. Neck: Supple, non-tender. Cardiovascular: Regular Rate and Rhythm without murmur, gallop or rub. Respiratory: No accessory muscle use or respiratory distress. Lungs are clear to auscultation, no wheezing, rales or rhonchi Chest Wall: Tenderness upon palpation of the posterior aspect of the lower right-sided chest wall, there is no ecchymosis or any skin changes or any rash and there is no intervertebral line tenderness Back: No midline thoracic or lumbar vertebral tenderness. No CVA tenderness Musculoskeletal: Left shoulder examination showed that the patient have limitation of abduction due to pain there is no obvious swelling and the patient have tenderness upon palpation of the anterior aspect of the left shoulder the patient also have tenderness upon palpation of the humerus on the left side, GI: Abdomen is soft, non-distended. Normal bowel sounds. No masses appreciated. No tenderness to palpation. No rebound, guarding, or rigidity noted. Neurological: A&O x4. No cranial nerve dysfunction observed. Constitutional Vital Signs, click to edit/add: Last Vital Signs Temp 97.8 F 07/05/24 10:02 Pulse 60 07/05/24 10:02 Resp 20 07/05/24 10:02 BP 136/80 07/05/24 10:02 Pulse Ox 100 07/05/24 10:02 O2 Del Method Room Air 07/05/24 10:02 Course Vital Signs Vital signs: Vital Signs Temperature 97.8 F 07/05/24 10:02 Pulse Rate 60 07/05/24 10:02 Respiratory Rate 20 07/05/24 10:02 Blood Pressure 136/80 07/05/24 10:02 Pulse Oximetry 100 07/05/24 10:02 Oxygen Delivery Method Room Air 07/05/24 10:02 Temperature 97.8 F 07/05/24 10:02 Pulse Rate 60 07/05/24 10:02 Respiratory Rate 20 07/05/24 10:02 Blood Pressure 136/80 07/05/24 10:02 Pulse Oximetry 100 07/05/24 10:02 Oxygen Delivery Method Room Air 07/05/24 10:02 Medical Decision Making MDM Narrative Medical decision making narrative: X-ray of the patient left shoulder showed no acute pathology she does have a history of rotator cuff injury Sling applied to the left shoulder X-ray of the patient chest with a PA and lateral view shows no acute pathology X-ray of the humerus was normal The patient right now just having contusion due to the fall he was instructed about monitoring her symptoms, she already takes Percocet at home and she will continue using that for pain The patient to come back in case of any worsening of her symptoms She was also to follow-up with orthopedic as outpatient for further evaluation of her left shoulder pain The patient is to follow up with primary care physician in next 2-3 days or to return to the emergency department should any of the signs or symptoms worsen or new symptoms develop. The patient agrees with the following Diagnosis and Treatment plan and the patient will be discharged home. Discharge Plan Discharge Chief Complaint: Extremity Injury, Upper Clinical Impression: Fall, Shoulder sprain, Back sprain Patient Disposition: Home, Self-Care Time of Disposition Decision: 11:57 Condition: Good Prescriptions / Home Meds: No Action amlodipine 10 mg tablet 10 mg PO QDAY aripiprazole 10 mg tablet 10 mg PO QDAY aspirin 81 mg tablet,chewable 81 mg PO QDAY atorvastatin 80 mg tablet 80 mg PO QDAY buspirone 30 mg tablet 30 mg PO BID Vraylar 6 mg capsule 6 mg PO Q24H fenofibrate nanocrystallized 145 mg tablet 145 mg PO QDAY furosemide 20 mg tablet 40 mg PO QDAY gabapentin 600 mg tablet 600 mg PO QDAY PRN (Reason: neuromuscular blockade) isosorbide mononitrate 30 mg tablet extended release 24 hr 30 mg PO QDAY metoprolol succinate 25 mg tablet extended release 24 hr 12.5 mg PO QDAY pioglitazone 45 mg tablet 45 mg PO QDAY Entresto 49-51 mg tablet 1 tab PO BID spironolactone 25 mg tablet 25 mg PO QDAY tizanidine 4 mg tablet 4 mg PO Q8H PRN (Reason: muscle spasticity) fluoxetine [Prozac] 10 mg capsule 10 mg PO DAILY cetirizine [Zyrtec] 10 mg tablet 10 mg PO DAILY PRN (Reason: allergy symptoms) High Potency Iron 134 mg (27 mg iron) tablet 134 mg PO DAILY oxycodone-acetaminophen [Percocet] 7.5-325 mg tablet 1 tab PO BID PRN (Reason: pain) Qty: 60 0RF oxycodone-acetaminophen [Percocet] 7.5-325 mg tablet 1 tab PO BID PRN (Reason: pain) Qty: 60 0RF oxycodone-acetaminophen [Percocet] 7.5-325 mg tablet 1 tab PO BID PRN (Reason: pain) Qty: 60 0RF diazepam 10 mg tablet 10 mg PO PRN (Reason: sedation) oxycodone-acetaminophen [Endocet] 7.5-325 mg tablet 1 tab PO BID PRN (Reason: pain) Qty: 60 0RF oxycodone-acetaminophen [Percocet] 7.5-325 mg tablet 1 tab PO BID PRN (Reason: pain) Qty: 60 0RF oxycodone-acetaminophen [Percocet] 7.5-325 mg tablet 1 tab PO BID PRN (Reason: pain) Qty: 60 0RF oxycodone-acetaminophen [Percocet] 7.5-325 mg tablet 1 tab PO BID PRN (Reason: pain) Qty: 60 0RF oxycodone-acetaminophen [Percocet] 7.5-325 mg tablet 1 tab PO BID PRN (Reason: pain) Qty: 60 0RF Print Language: Faroese Instructions: Shoulder Sprain (ED), Fall Prevention (ED) Referrals: Janene Lew [facility] [employer] [Primary Care Provider] - 1 week Discharge Date/Time: 07/05/24 12:09
--- NOTE | 2024-07-05 12:08 | PC.NURSE ---
sling applied to left arm,, pms intact pre and post sling application, pt tolerated well
== END 2024-07-05 12:09 | disposition home or self-care (01) ==
PROVIDERS: Emergency Provider Emergency Medicine; PCP Nurse Practitioner
DX: S43.402A Unspecified sprain of left shoulder joint, initial encounter (principal); W17.89XA Other fall from one level to another, initial encounter; Z90.710 Acquired absence of both cervix and uterus; Z95.5 Presence of coronary angioplasty implant and graft; S23.3XXA Sprain of ligaments of thoracic spine, initial encounter
CPT/HCPCS: 71045; 71046; 73030; 73060; 99283

== ENCOUNTER 2024-07-15 10:59 | Emergency (ER) | payer BC, SELFPAY ==
[2024-07-15 11:08] VITALS: BP 119/72; PULSE 60; TEMP 37.1; O2SAT 99; BMI 42.1
== END 2024-07-15 11:42 | disposition left against medical advice (07) ==
PROVIDERS: Emergency Provider Emergency Medicine; PCP Nurse Practitioner
DX: Z53.21 Procedure and treatment not carried out due to patient leaving prior to being seen by health care provider (principal)

== ENCOUNTER 2024-08-28 07:37 | Outpatient (OUT) | payer BC, SELFPAY ==
--- OUTSIDE RECORDS SUMMARY | 2024-08-28 07:51 | XMS_ITS | CCD ---
Author Organization [facility] Care Team Providers Care Casino Gaming Worker Name Role Phone Peng Merino Admitting Unavailable Peng Merino Attending Unavailable GEOVANNI BRUNNER Primary Care Unavailable HAMMAD LING Referring Unavailabl e [place] Procedure Practitioner Unavailab TK [place] Surgeon Unavailable Christian Hamilton Unavailable Janene Lew Primary Care Provider [phone] MD Christian Hamilton Attending Provider ELIER Bolivar Emma Attending Provider Emma Bolivar Unavailable Halle Mac Unavailable Janene Lew Primary Care Provider STU HernandezLYNNE Antunez Emergency Provider Ivan Sams Unavailable AICHHOLZ, BRICK VENEER MAKER JANENE Consulting Unavailable AICHHOLZ, BRICK VENEER MAKER JANENE Attending Unavailable AICHHOLZ, BRICK VENEER MAKER JANENE Admitting Unavailable AICHHOLZ, BRICK VENEER MAKER JANENE Primary Care Unavailable AICHHOLZ, BRICK VENEER MAKER JANENE Consulting Unavailable AICHHOLZ, BRICK VENEER MAKER JANENE Attending Unavailable AICHHOLZ, BRICK VENEER MAKER JANENE Admitting Unavailable AICHHOLZ, BRICK VENEER MAKER JANENE Primary Care Unavailable AICHHOLZ, BRICK VENEER MAKER JANENE Primary Care Unavailable AICHHOLZ, BRICK VENEER MAKER JANENE Consulting Unavailable AICHHOLZ, BRICK VENEER MAKER JANENE Admitting Unavailable AICHHOLZ, BRICK VENEER MAKER JANENE Attending Unavailable DR MYRIAM SAMANIEGO Attending Unavailable DR MYRIAM SAMANIEGO Admitting Unavailable DR MYRIAM SAMANIEGO Consulting Unavailable AICHHOLZ, BRICK VENEER MAKER JANENE Primary Care Unavailable AICHHOLZ, BRICK VENEER MAKER JANENE Primary Care Unavailable DWAYNE FRIEDMAN Admitting Unavailable DWAYNE FRIEDMAN Attending Unavailable CLEMENT PLUMMER Consulting Unavailable Wan Jenkins Consulting Unavailable AICHHOLZ, BRICK VENEER MAKER JANENE Primary Care Unavailable EVON TRAMMELL Attending Unavailable EVON TRAMMELL Admitting Unavailable EVON TRAMMELL Consulting Unavailable LUZ COELLO Consulting Unavailable NATHAN COLE Consulting Unavailable LIN GARRETT Consulting Unavailable AICHHOLZ, BRICK VENEER MAKER JANENE Primary Care Unavailable AICHHOLZ, BRICK VENEER MAKER JANENE Admitting Unavailable AICHHOLZ, BRICK VENEER MAKER JANENE Attending Unavailable DR ALEX ALLEN V Consulting Unavailable AICHHOLZ, BRICK VENEER MAKER JANENE Consulting Unavailable AICHHOLZ, BRICK VENEER MAKER JANENE Consulting Unavailable AICHHOLZ, BRICK VENEER MAKER JANENE Attending Unavailable AICHHOLZ, BRICK VENEER MAKER JANENE Admitting Unavailable AICHHOLZ, BRICK VENEER MAKER JANENE Primary Care Unavailable DR KATHY LOBATO Consulting Unavailable AICHHOLZ, BRICK VENEER MAKER JANENE Attending Unavailable AICHHOLZ, BRICK VENEER MAKER JANENE Admitting Unavailable AICHHOLZ, BRICK VENEER MAKER JANENE Primary Care Unavailable DR ALEX ALLEN V Consulting Unavailable AICHHOLZ, BRICK VENEER MAKER JANENE Consulting Unavailable AICHHOLZ, BRICK VENEER MAKER JANENE Consulting Unavailable AICHHOLZ, BRICK VENEER MAKER JANENE Primary Care Unavailable AICHHOLZ, BRICK VENEER MAKER JANENE Attending Unavailable AICHHOLZ, BRICK VENEER MAKER JANENE Admitting Unavailable AICHHOLZ, BRICK VENEER MAKER JANENE Primary Care Unavailable AICHHOLZ, BRICK VENEER MAKER JANENE Admitting Unavailable AICHHOLZ, BRICK VENEER MAKER JANENE Consulting Unavailable AICHHOLZ, BRICK VENEER MAKER JANENE Attending Unavailable DR KATHY LOBATO Consulting Unavailable AICHHOLZ, BRICK VENEER MAKER JANENE Primary Care Unavailable BAKHOUS, AZIZ Admitting Unavailable BAKHOUS, AZIZ Attending Unavailable AICHHOLZ, BRICK VENEER MAKER JANENE Attending Unavailable AICHHOLZ, BRICK VENEER MAKER JANENE Admitting Unavailable AICHHOLZ, BRICK VENEER MAKER JANENE Primary Care Unavailable AICHHOLZ, BRICK VENEER MAKER JANENE Primary Care Unavailable AICHHOLZ, BRICK VENEER MAKER JANENE Consulting Unavailable AICHHOLZ, BRICK VENEER MAKER JANENE Attending Unavailable AICHHOLZ, BRICK VENEER MAKER JANENE Admitting Unavailable DR KATHY LOBATO Consulting Unavailable AICHHOLZ, BRICK VENEER MAKER JANENE Primary Care Unavailable AICHHOLZ, BRICK VENEER MAKER JANENE Admitting Unavailable AICHHOLZ, BRICK VENEER MAKER JANENE Attending Unavailable AICHHOLZ, BRICK VENEER MAKER JANENE Consulting Unavailable AICHHOLZ, BRICK VENEER MAKER JANENE Primary Care Unavailable DOLORES STRATTON Attending Unavailable DOLORES STRATTON Admitting Unavailable MR DELIA HENDRIX Consulting Unavailable AMBER ., DOLORES Consulting Unavailable ALEX AVINA Consulting Unavailable AICHHOLRufus, AGUSTINA JANENE Primary Care Unavailable EVON TRAMMELL Attending Unavailable EVON TRAMMELL Admitting Unavailable EVON TRAMMELL Consulting Unavailable Janene Lew Primary Care Provider [phone] MD Valdemar Alonso Attending Provider MD Fauzia Huffman Attending Provider UnavailMD Halle Felton Referring Provider [phone] MARKEL HAQ Primary Care Unavailable Janene Lew Attending Unavailable Janene Lew Admitting Unavailable Janene Lew Primary Care Provider [phone] MD Fauzia Huffman Attending Provider UnavailMD Halle Felton Referring Provider [phone] MD Halle Mac Attending Provider [phone] Janene Lew Primary Care Provider [phone] MD Valdemar Alonso Attending Provider MD [facility] [phone] MD Emmanuel [facility] Other Provider MD Fernando Rosenberg Attending Provider MD Valdemar Alonso Attending Provider MD Valdemar Alonso Attending Provider MD Ban Clemente Attending Provider [phone] Girenee SHARMA, Andrius Vytautchuck Attending Unavailable Girenee SHARMA, Andrius Vytautas Attending Unavailable Man SHARMA, Andrius Vytautas Attending Unavailable Girenee SHARMA, Andrius Vytautas Attending Unavailable Girenee SHARMA, Andrius Vytautchuck Attending Unavailable ELTAHAWY, EHAB Referring Unavailable ELTAHAWY, EHAB Attending Unavailable ELTAHAWY, EHAB Attending Unavailable ELTAHAWY, EHAB Attending Unavailable Markel Haq MD Primary Care Provider Aichholz RENTAL COUNTER CLERK, Janene Unavailable MARYA CASTORENA Attending Unavailable CLEMENTE BAN Ashley Attending Unavailable AICHHOLZ, JANENE Referring Unavailable CLEMENTE Gabi, BAN Attending Unavailable AICHHOLZ, JANENE Attending Unavailable RUSHERJESSICA S Attending Unavailable AICHHOLZ, JANENE Referring Unavailable RUSHER, JESSICA S Referring Unavailable AICHHOLZ, JANENE Attending Unavailable CLMEENTE V, BAN Attending Unavailable SHAIKH SCOTT Attending Unavailable AICHHOLZ, JANENE Attending Unavailable CLEMENTE Gabi, BAN Attending Unavailable MARYA CASTORENA Attending Unavailable AICHHOLZ, JANENE Referring Unavailable AICHHOLZ, JANENE Attending Unavailable PETZNICKMARYA Attending Unavailable AICHHOLZ, JANENE Attending Unavailable Aichholz, Janene J Primary Care Unavailable Aristides Rosenbergderick E Attending Unavailab le ameAristides lynchderick E Admitting Unavailab le Aichholz, Janene J Primary Care Unavailable Bakmichaels Aziz Attending Unavailable Bakhous, Aziz Admitting Unavailable Aichholz, Janene J Primary Care Unavailable Valdemar Alonso Attending Unavailab Valdemar Brock Admitting Unavailab le Aichholz, Janene J Primary Care Unavailable Alma Deng Admitting Unavailable Des Benitez Unavailable Chet Fernando E Attending Unavailab le Aichholz, Janene J Primary Care Unavailable Ban Clemente Attending Unavailable Clemente Ban Admitting Unavailable Aichholz, Janene J Primary Care Unavailable Bakhous, Aziz Attending Unavailable Bakhous, Aziz Admitting Unavailable Allergies Allergy Classification Reported Allergen(s) Allergy Type Date of Onset Reaction(s) Facility (2 sources) Cephalexin Drug Allergy 10-06-19 10 [facility] Repository (2 sources) Levamisole Drug Allergy 05-22-19 13 [facility] Repository (2 sources) Omeprazole; Translations: [OMEPRAZOLE] Drug Allergy 04-20-19 16 [facility] Repository (14 sources) Prochlorperazine Drug Allergy 10-06-19 10 Unknown [facility] Repository (14 sources) Sulfamethoxazole / Trimethoprim Drug Allergy 10-06-19 10 Unknown [facility] Repository (12 sources) Penicillins (Antibiotic) Propensity to adverse reactions Unknown [employer] Other (20 sources) Promethazine; Translations: [PROMETHAZINE] Drug Allergy 06-28-19 14 Unknown, Seizure [facility] (20 sources) empagliflozin; Translations: [EMPAGLIFLOZIN] Drug Allergy 08-11-19 22 Unknown Reaction [facility] (20 sources) Penicillins; Translations: [Penicillins] Allergy to substance 06-28-[address] [facility] (20 sources) Prochlorperazine; Translations: [PROCHLORPERAZINE] Drug Allergy 06-28-19 14 [facility] (20 sources) Sulfamethoxazole; Translations: [SULFAMETHOXAZOLE] Drug Allergy 06-28-[address] [facility] (9 sources) Trimethoprim; Translations: [trimethoprim] Drug Allergy 08-11-[address] [facility] (1 source) Sulfonamides (Antibiotic) Drug allergy (disorder) 06-10-19 15 [facility] Repository (20 sources) zolpidem; Translations: [zolpidem] Drug Allergy 10-01-19 24 [facility] (20 sources) Cephalexin; Translations: [CEPHALEXIN] Drug Allergy 06-28-19 14 [facility] Repository (1 source) Doxycycline; Translations: [DOXYCYCLINE CALCIUM] Drug Allergy 06-28-19 14 [facility] Repository (1 source) Esomeprazole; Translations: [ESOMEPRAZOLE MAGNESIUM] Drug Allergy 06-23-19 17 [facility] Repository (20 sources) pantoprazole; Translations: [PANTOPRAZOLE] Drug Allergy 06-23-19 17 GI intolerance [facility] Repository (20 sources) Sulfamethoxazole / Trimethoprim; Translations: [SULFAMETHOXAZOLE-T RIMETHOPRIM] Drug Allergy 04-03-20 14 [facility] Repository (1 source) [place]; Translations: [PHENERGAN PLAIN] Propensity to adverse reactions to drug (disorder) 09-17-19 16 [facility] Repository (20 sources) Esomeprazole Drug Allergy 04-27-19 24 GI intolerance [facility] (20 sources) Omeprazole Drug Allergy 04-27-19 24 GI intolerance [facility] (1 source) Promethazine Drug Allergy 03-12-20 [facility] Repository Medications Current Medications Medication Drug [...] morning and 1 tablet before bedtime. Active [id number] 200 actuat albuterol 0.09 mg/actuat metered dose [...] completed) benztropine mesylate 0.5 mg oral tablet (15 sources) Anticholinergic, Antihistamine Start: 02-18-2024 benztropine (Cogenti n) 0.5 MG tablet 02/18/2024 Active Biotin (6 sources) Biotin Active Blood Glucose Monitoring Suppl (True Metrix Air Glucose Meter) w/Device kit (20 sources) Start: 07-02-2023 Blood Glucose Monitoring Suppl (True Metrix Air Glucose Meter) w/Device kit Indications: Type 2 diabetes mellitus without complication, without long-term current use of insulin 1 each Daily 1 kit 07/02/2023 Active Start: 07-02-2023 Blood Glucose Monitoring Suppl (True Metrix Air Glucose Meter) w/Device kit Indications: Type 2 diabetes mellitus without complication, without long-term current use of insulin ([facility]) 1 each Daily 1 kit 07/02/2023 Active [...] tablet (13 sources) Serotonin Reuptake Inhibitor Start: take 20 mg by mouth once daily [...] tablet (20 sources) Anti-epileptic Agent Start: 10-23-2023 End: 08-24-2024 take 1 tablet by mouth twice daily as needed gabapentin (Neurontin) 600 MG tablet Indications: Restless leg syndrome Take 1 tablet (600 mg) by mouth 2 (two) times a day as needed (RLS) 60 tablet 2 07/25/2024 08/24/2024 Active Start: 10-02-2023 End: 10-16-2023 take 600 [...] Start: 11-10-2021 take 2 tablets by mo [facility] every twelve hours Gabapentin 600 MG 2 tablets Orally bid for 20 days Oct, Active Start: 09-29-2021 take 1-2 capsules by mouth twice daily Gabapentin 300 MG 1-2 capsule Orally twice a day for 30 day(s) Sep, Active Start: 12-05-2019 take 1 capsule by mo [facility] every twenty-four hours Gabapentin 300 MG 1 [...] 02/19/2024 Discontinued nitroglycerin 0.4 mg sublingual tablet (20 sources) Nitrate Vasodilator Start: 12-18-19 nitroglycerin (Nitrostat) [...] Active Tirzepatide (2 sources) Start: 10-16-2023 Tirzepatide (M ounjaro) 5 mg/0.5 mL pen injector Active 5 [...] Active Tirzepatide (Mounjaro) 7.5 MG/0.5ML solution auto-injector (15 sources) Start: 06-30-2024 inject 7.5 mg by subcutaneous injection every week Tirzepatide (Mounjaro) 7.5 MG/0.5ML solution auto-injector Indications: Type 2 diabetes mellitus with other circulatory complications INJECT 7.5 MG SUBCUTANEOUSLY UNDER THE SKIN 1 TIME PER WEEK 2 mL 3 06/30/2024 Active Start: 02-19-2024 inject 7.5 mg by sub cutaneous injection every week Tirzepatide (Mounjaro) 7.5 MG/0.5ML [...] for muscle spasms 90 tablet 2 05/27/2024 Active Start: 12-07-2023 End: 01-06-2024 take 1 [...] August 15, 2023 10:11am Mirtazapine befo re [id number] Active mometasone furoate 0.05 mg/actuat metered dose [...] (3 sources) Start: 10-01-2023 End: 10-16-2023 Tirzepatide (Layro) 2.5 m g/0.5 mL pen injector Discontinued 2.5 MG SUBCUT .weekly October 01, 2023 12:00am October 16, 2023 1:12pm Start: 10-01-2023 Tirzepatide (M yadirankyreero) 2.5 mg/0.5 mL pen injector Active 2.5 [...] Coronary arteriosclerosis; Translations: [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] Onset: 3 [...] 4 10-10-2023 Chronic Other aftercare (1 source) 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; Translations: [ASSISTED CURRENT USE OF ASPIRIN] Onset: 3 Episodic Other aftercare (1 source) [facility] (current) use of oral hypoglycemic drugs; Translations: [ASSISTED USE ORAL HYPOGLYCEMIC DX] Onset: 3 Episodic Other aftercare (1 source) Other nursing home (current) drug therapy; Translations: [OTH 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 DRUG THERAPY] Onset: 3 Episodic Other connective tissue disease (4 sources) Foot pain; Translations: [Pain in left foot] Onset: 5 07-15-2024 Episodic Other gastrointestinal disorders (20 sources) Irritable [...] disorder, delayed sleep phase type Chronic Other non-traumatic joint disorders (4 sources) Acute ankle pain; Translations: [Pain in left ankle and joints of left foot] Onset: 5 07-15-2024 Episodic Other nutritional; endocrine; and metabolic disorders [...] nutritional; endocrine; and metabolic disorders (20 sources) Severe obesity; Translations: [Class 3 severe obesity due to excess calories with serious comorbidity and body mass index (BMI) of 45.0 to 49.9 in adult ([facility])] Onset: 4 02-19-2024 Chronic Other nutritional; endocrine; and metabolic disorders (11 sources) Obesity caused by energy imbalance; Translations: [Morbid (severe) obesity due to excess calories] Onset: 4 12-05-2023 Chronic Other upper respiratory disease (20 sources) Seasonal [...] Translations: [CONTACT W/AND (SUSP) EXPOS COVID-19] Onset: 2 Past or Other Problems Problem Classification Problem [...] tophaceous disease] Onset: 10-24-2023 10-10-2023 Episodic Other nutritional; endocrine; and metabolic disorders (6 sources) Hyperuricemia without signs of inflammatory arthritis and tophaceous disease; Translations: [Other abnormal blood chemistry] Onset: 03-11-2024 08-15-2023 Episodic Other screening for suspected conditions (not mental disorders or infectious disease) (20 sources) Encounter for screening mammogram for malignant neoplasm of breast; Translations: [Abnormal findings on diagnostic imaging of other parts of musculoskeletal system] Onset: 03-27-2022 Episodic Other upper respiratory infections (13 sources) Acute pansinusitis; Translations: [Acute pansinusitis, unspecified] [...] Interpretation and review of laboratory results Normal [facility] Laboratory - Hematology and Cell countson 06-16-2024 HbA1c (Bld) [Mass fraction] 5.5 % [facility] Ferritinon 03-11-2024 Ferritin [Mass/Vol] 135.5 ng/mL Normal 11.0-306.8 [facility] Comment on above: Performed By: #### G PATRICA #### Point of Care testing , Hemogram CBC Without Diffon 03-11-2024 Erythrocyte distribution width (RBC) [Ratio] 14.6 % Normal 11.9-15.3 [facility] Comment on above: Performed By: #### F E and TIBC, URIC, URMACRERAT, UA, MG, CBCNO, GEENA, [id number], [id number], PROCRERAT, PTH, RENAL #### [address] Hematocrit (Bld) [Volume fraction] 34.9 % Normal 34.0-46.4 [facility] Comment on above: Performed By: #### F E and TIBC, URIC, URMACRERAT, UA, MG, CBCNO, GEENA, [id number], [id number], PROCRERAT, PTH, RENAL #### [address] Hemoglobin (Bld) [Mass/Vol] 11.4 g/dL Low 11.8-15.4 [facility] Comment on above: Performed By: #### F E and TIBC, URIC, URMACRERAT, UA, MG, CBCNO, GEENA, [id number], [id number], PROCRERAT, PTH, RENAL #### [address] MCH (RBC) [Entitic mass] 29.7 pg Normal 24.7-34.3 [facility] Comment on above: Performed By: #### F E and TIBC, URIC, URMACRERAT, UA, MG, CBCNO, GEENA, [id number], [id number], PROCRERAT, PTH, RENAL #### [address] MCV (RBC) [Entitic vol] 91.3 fL Normal 80-100 [facility] Comment on above: Performed By: #### F E and TIBC, URIC, URMACRERAT, UA, MG, CBCNO, GEENA, [id number], [id number], PROCRERAT, PTH, RENAL #### [address] Mean Corpuscular HGB Conc 32.6 g/dL Normal 32.0-35.0 [facility] Comment on above: Performed By: #### F E and TIBC, URIC, URMACRERAT, UA, MG, CBCNO, GEENA, [id number], [id number], PROCRERAT, PTH, RENAL #### [address] Platelet mean volume (Bld) [Entitic vol] 8.7 fL Normal 6.3-10.7 [facility] Comment on above: Result Comment: PERF ORMED BY: [place] [id number] PATHOLOGIST NURSE ASSISTANT SHANIQUE CALDERON M.D. Performed By: #### F E and TIBC, URIC, URMACRERAT, UA, MG, CBCNO, GEENA, [id number], [id number], PROCRERAT, PTH, RENAL #### [address] Platelets (Bld) [#/Vol] 328 10*3/uL Normal 150-450 [facility] Comment on above: Performed By: #### F E and TIBC, URIC, URMACRERAT, UA, MG, CBCNO, GEENA, [id number], [id number], PROCRERAT, PTH, RENAL #### [address] RBC (Bld) [#/Vol] 3.83 10*6/uL Normal 3.60-5.00 [facility] Comment on above: Performed By: #### F E and TIBC, URIC, URMACRERAT, UA, MG, CBCNO, GEENA, [id number], [id number], PROCRERAT, PTH, RENAL #### [facility] [address] WBC (Bld) [#/Vol] 5.1 10*3/uL Normal 3.8-11.6 [facility] Comment on above: Performed By: #### F E and TIBC, URIC, URMACRERAT, UA, MG, CBCNO, GEENA, [id number], [id number], PROCRERAT, PTH, RENAL #### [facility] [address] Iron and TIBC Profileon 02-15 % Iron Saturation 30.1 % Normal 20-50 [facility] Comment on above: Performed By: #### G LULS #### Point of Care testing , Iron [Mass/Vol] 118 ug/dL Normal 50-212 [facility] Comment on above: Performed By: #### G LULS #### Point of Care testing , Total Iron Binding Capacity 392 ug/dL Normal 255-450 [facility] Comment on above: Performed By: #### G LULS #### Point of Care testing , Transferrin [Mass/Vol] 280 mg/dL Normal 203-362 [facility] Comment on above: Performed By: #### G LULS #### Point of Care testing , Magnesiumon 03-11-2024 Magnesium [Mass/Vol] 1.9 mg/dL Normal 1.9-2.7 [facility] Comment on above: Performed By: #### G LULS #### Point of Care testing , MicroAlb Creat Ratio,Uon Albumin DL <= 20 mg/L (U) [Mass/Vol] mg/dL Normal 0.0-1.8 [facility] Comment on above: Performed By: #### G LULS #### Point of Care testing , Creatinine, Urine (Random) 57.00 mg/dL Normal [facility] Comment on above: Result Comment: No r eference range established Performed By: #### G LULS #### Point of Care testing , Microalbumin/Creatinin e Ratio Not performed Normal 0.0-30.0 [facility] Comment on above: Performed By: #### G LULS #### Point of Care testing , Parathyroid Hormone Intacton 03-11-2024 Parathyroid Hormone Intact 30.6 pg/mL Normal 12-88 [facility] Comment on above: Result Comment: PERF ORMED BY: [address] [id number] PATHOLOGIST NURSE ASSISTANT SHANIQUE CALDERON M.D. Performed By: #### G LULS #### Point of Care testing , Protein Creat Ratio Ur [facility] 03-11-2024 Protein (U) [Mass/Vol] 5 mg/dL Normal 0-9 e [facility] Comment on above: Performed By: #### G LULS #### Point of Care testing , Urine Protein/Creatinine Ratio 88 mg/g{Cre} Normal 0-200 [facility] Comment on above: Result Comment: PERF ORMED BY: [address] [id number] PATHOLOGIST NURSE ASSISTANT SHANQIUE CALDERON M.D. Performed By: #### G LULS #### Point of Care testing , Renal Function Panelon 03-11 Albumin [Mass/Vol] 3.9 g/dL Normal 3.5-5.7 [facility] Comment on above: Performed By: #### G LULS #### Point of Care testing , Anion gap [Moles/Vol] 12.5 mmol/L Normal 6.0-15.0 e [facility] Comment on above: Performed By: #### G LULS #### Point of Care testing , Calcium [Mass/Vol] 9.4 mg/dL Normal 8.6-10.3 [facility] Comment on above: Performed By: #### G LULS #### Point of Care testing , Chloride [Moles/Vol] 110 mmol/L High 98-107 [facility] Comment on above: Performed By: #### G LULS #### Point of Care testing , CO2 [Moles/Vol] 25.0 mmol/L Normal 21.0-31.0 [facility] Comment on above: Performed By: #### G LULS #### Point of Care testing , Creatinine [Mass/Vol] 1.50 mg/dL High 0.60-1.20 [facility] Comment on above: Performed By: #### G LULS #### Point of Care testing , Estimated GFR 41.412 mL/Min Normal [facility] Comment on above: Performed By: #### G LULS #### Point of Care testing , Glucose [Mass/Vol] 88 mg/dL Normal 70-100 [facility] Comment on above: Result Comment: [facility] Glucose Reference Range is dependent on time and content of last meal. Glucose of more than 200 mg/dL in a nonstressed, ambulatory subject supports the diagnosis of Diabetes Mellitus. ADA recommended reference range Performed By: #### G LULS #### Point of Care testing , Phosphate [Mass/Vol] 2.7 mg/dL Normal 2.5-4.5 [facility] Comment on above: Performed By: #### G LULS #### Point of Care testing , Potassium [Moles/Vol] 4.5 mmol/L Normal 3.5-5.1 [facility] Comment on above: Performed By: #### G LULS #### Point of Care testing , Sodium [Moles/Vol] 143 mmol/L Normal 136-145 [facility] Comment on above: Performed By: #### G LULS #### Point of Care testing , Urea nitrogen [Mass/Vol] 18 mg/dL Normal 7-25 [facility] Comment on above: Performed By: #### G LULS #### Point of Care testing , Uric Acidon 03-11-2024 Urate [Mass/Vol] 6.3 mg/dL Normal 2.3-6.6 [facility] Comment on above: Performed By: #### G LULS #### Point of Care testing , Urinalysison 03-11-2024 Appearance (U) Clear Normal Clear [facility] Comment on above: Order Comment: Name Collection Type:: Clean-Voided Midstream Performed By: #### G LULS #### Point of Care testing , Bilirubin,Urine Negative Normal Negative [facility] Comment on above: Order Comment: Name Collection Type:: Clean-Voided Midstream Performed By: #### G LULS #### Point of Care testing , Color (U) Light-Yellow Normal Yellow [facility] Comment on above: Order Comment: Name Collection Type:: Clean-Voided Midstream Performed By: #### G LULS #### Point of Care testing , Glucose Ql (U) Normal Normal Normal [facility] Comment on above: Order Comment: Name Collection Type:: Clean-Voided Midstream Performed By: #### G LULS #### Point of Care testing , Ketones Ql (U) Negative Normal Negative [facility] Comment on above: Order Comment: Name Collection Type:: Clean-Voided Midstream Performed By: #### G LULS #### Point of Care testing , Leukocyte esterase Test strip Ql (U) Negative Normal Negative [facility] Comment on above: Order Comment: Name Collection Type:: Clean-Voided Midstream Performed By: #### G LULS #### Point of Care testing , Nitrite,Urine Negative Normal Negative [facility] Comment on above: Order Comment: Name Collection Type:: Clean-Voided Midstream Performed By: #### G LULS #### Point of Care testing , Occult Blood,Urine Negative Normal Negative [facility] Comment on above: Order Comment: Name Collection Type:: Clean-Voided Midstream Result Comment: PERF ORMED BY: [facility] [address] [place] [address] PATHOLOGIST NURSE ASSISTANT SHANIQUE CALDERON M.D. Performed By: #### G LULS #### Point of Care testing , pH (U) 5.5 [pH] Normal 5.0-9.0 [facility] Comment on above: Order Comment: Name Collection Type:: Clean-Voided Midstream Performed By: #### G LULS #### Point of Care testing , Protein,Urine Negative Normal Negative [facility] Comment on above: Order Comment: Name Collection Type:: Clean-Voided Midstream Performed By: #### G LULS #### Point of Care testing , Specificy [place],Urine 1.011 Normal 1.001-1.030 [facility] Comment on above: Order Comment: Name Collection Type:: Clean-Voided Midstream Performed By: #### G LULS #### Point of Care testing , Urobilinogen,Urine Normal Normal Normal [facility] Comment on above: Order Comment: Name Collection Type:: Clean-Voided Midstream Performed By: #### G LULS #### Point of Care testing , Vit. B12/Folate Profileon Cobalamin (Vitamin B12) [Mass/Vol] 4548 pg/mL High 180-914 [facility] Comment on above: Performed By: #### G LULS #### Point of Care testing , Folate 8.2 ng/mL Normal >5.9 [facility] Comment on above: Result Comment: Maria te reference range: >5.9 ng/ml The WHO technical consultation on folate and vitamin b12 deficiencies has determined that folate concentrations less than 4 ng/ml are considered deficient. Performed By: #### G LULS #### Point of Care testing , Vitamin D 25 Hydroxy Totalon 03-11-2024 Vitamin D 25 Hydroxy Total 25.0 ng/mL Low 30-100 [facility] Comment on above: Result Comment: AWAIS MIN D STATUS 25(OH)VITAMIN D RANGE (ng/mL) Deficient <20 Insufficient 20 to <30 Sufficient 30 to 100 Reference: Karen MF,Nicole NC, Ed LI, et al. Evaluation,treatment, and prevention of vitamin D deficiency; an Endocrine Society clinical practice guideline. JCEM. 2010; 96(7):1911-30. PERFORMED BY: [place] [address] PATHOLOGIST NURSE ASSISTANT SHANIQUE CALDERON M.D. Performed By: #### U TAYLOR MINAYA UEOS #### [address] HbA1c (Bld) [Mass fraction]o n 02-19-2024 Interpretation and review of laboratory results Normal [facility] - Hematology and Cell countson 02-19-2024 HbA1c (Bld) [Mass fraction] 5.1 % [facility] ALL CBC WITH AUTO DIFFon BASOPHILS ABSOLUTE AUTO 0.1 [facility] Basophils/100 WBC (Bld) 0.6 % 0.2 - 2.0 % [facility] Eosinophils/100 WBC (Bld) 1.4 % 0.9 - 7.0 % [facility] Erythrocyte distribution width (RBC) [Ratio] 14.1 % 11.0 - 15.0 % [facility] Hematocrit (Bld) [Volume fraction] 40.0 % 36.0 - 48.0 % [facility] Hemoglobin (Bld) [Mass/Vol] 12.4 g/dL 12.0 - 16.0 g/dL [facility] IMMATURE GRANULOCYTES ABS AUTO 0.03 [facility] Immature granulocytes/100 WBC (Bld) 0.4 % 0.0 - 0.5 % [facility] LYMPHOCYTES ABSOLUTE AUTO 1.9 [facility] Lymphocytes/100 WBC (Bld) 24.7 % 20.5 - 60.0 % [facility] MCH (RBC) [Entitic mass] 28.4 pg 26.7 - 34.0 pg [facility] MCHC (RBC) [Mass/Vol] 31.0 g/dL 29.9 - 35.2 g/dL [facility] MCV (RBC) [Entitic vol] 91.5 fL 81.0 - 99.0 fL [facility] MONOCYTES ABSOLUTE AUTO 0.4 [facility] Monocytes/100 WBC (Bld) 4.6 % 1.7 - 12.0 % [facility] NEUTROPHILS ABSOLUTE AUTO 5.3 [facility] Neutrophils/100 WBC (Bld) 68.3 % 43.0 - 75.0 % [facility] Platelet mean volume (Bld) [Entitic vol] 11.1 fL 9.5 - 13.5 fL [facility]H EO # 0.1 [facility] PLT [facility] RBC 4.37 [facility] WBC 7.8 [facility] Office Visiton 12-18-2023 Follow-up visit [id number] Nithin Humphreys 1970 F Date Provider Department Center 12/18/2023 [id number], EHAB CARD [facility] No family history on file Level of Service:[address] [place] OFFICE/OUTPATIENT ESTABLISHED LOW MDM 20 MIN Normal [facility] Capillary blood glucose timmy urement by glucometer (mass/volume)Ordered By: Ban Clemente on 11-01-2023 Glucose [Mass/Vol] 107 mg/dL Normal [facility] Comment on above: Random Glucose Refer ence Range is dependent on time and content of last meal. Glucose of more than 200 mg/dL in a nonstressed, ambulatory subject supports the diagnosis of Diabetes Mellitus. Result Comment: [facility] Glucose Reference Range is dependent on time and content of last meal. Glucose of more than 200 mg/dL in a nonstressed, ambulatory subject supports the diagnosis of Diabetes Mellitus. PERFORMED BY: [place] [address] PATHOLOGIST NURSE ASSISTANT ARIC BUTLER M.D. Performed By: #### TAYLOR CONLEY UEOS #### [place] [id number] [facility] Glucose Poct Glucometerson 0 11-01-2023 Commemt1 Glu2: Cleaned Meter Normal [facility] Comment on above: Result Comment: PERF ORMED BY: [address] [place] [id number] PATHOLOGIST NURSE ASSISTANT ARIC BUTLER M.D. Performed By: #### TAYLOR CONLEY UEOS #### [place] [id number] [facility] Glucose [Mass/Vol] 70 mg/dL Normal [facility] Comment on above: Result Comment: [facility] Glucose Reference Range is dependent on time and content of last meal. Glucose of more than 200 mg/dL in a nonstressed, ambulatory subject supports the diagnosis of Diabetes Mellitus. Performed By: #### TAYLOR CONLEY UEOS #### [facility] [address] [place] [address] [place] 11-01-2023 L Specimen: [id number] Received: 11/01/23 Status: YOMAIRAJustin Hinojosa Num: [id number] Spec Type: Surgical Subm Dr: Ban Clemente MD Tissues: A Colon Biopsy (CECAL POLYP) Procedures: HE/2, Gross/Micro L4 Age/ Patient Sex Location Account Attending Physician [place] 52/F [place] [id number] Ban Clemente MD SPEC NUM: [id number] RECD: 11/01/23 STATUS: YOMAIRAJustin HINOJOSA NUM: [id number] RORY: 11/01/23 DR: Ban Clemente MD ENTERED: 11/01/238 [facility] DR: SPEC TYPE: Surgical DEPT: S ORDERED: HE/2, Gross/Micro L4 ORDERED: HE/2, Gross/Micro L4 Pathological Diagnosis Colon, cecal polyp (endoscopic polypectomy/biopsy): Tubular adenoma Clinical Information History of polyp Gross Description Received in formalin labeled with the patient's name, date of and cecal polyp is a 0.3 x 0.3 x 0.2 cm adame polypoid tissue fragment, entirely submitted in A1. CPT Codes 14917 Specimen: [id number] Received: 11/01/23 Status: MEENAKSHI Hinojosa Num: [id number] Spec Type: Surgical Subm Dr: Ban Clemente MD Tissues: A Colon Biopsy (CECAL POLYP) Procedures: HE/2, Gross/Micro L4 Patient: SahraSherly Amanda [id number] (Continued) Signed (signature on file) Herminio Ragsdale Jr., MD 11/05/23 190 Normal [facility] No Panel InformationOrdered By: Ban Clemente on 11-01-2023 Bedside Glucose Comment Glu2: cleaned meter [facility] Basic Metabolic Panelon 09-15 GFR/1.73 sq M.predicted MDRD (S/P/Bld) [Vol rate/Area] 28.812 mL/min/{1.73_m2} Normal [facility] Comment on above: Performed By: #### U TAYLOR MINAYA UEOS #### [facility] [address] Calcium [Mass/volume] in Ser um or PlasmaOrdered By: Fernando Rosenberg on 10-11-2023 Calcium [Mass/Vol] 9.7 mg/dL Normal 8.6-10.3 [facility] Comment on above: Result Comment: PERF ORMED BY: [facility] [address] [place] [address] PATHOLOGIST NURSE ASSISTANT ARIC BUTLER M.D. Performed By: #### U TAYLOR MINAYA UEOS #### [facility] [address] Carbon dioxide, total [Moles /volume] in Serum or PlasmaOrdered By: Fernando Rosenberg on 10-11-2023 CO2 [Moles/Vol] 26.7 mmol/L Normal 21.0-31.0 [facility] Comment on above: Performed By: #### U CREA, URNA, UEOS #### [place] [address] [place] Chloride [Moles/volume] in S brunilda or PlasmaOrdered By: Fernando Rosenberg on 10-11-2023 Chloride [Moles/Vol] 107 mmol/L Normal 98-107 [facility] Comment on above: Performed By: #### U CREA, URNA, UEOS #### [address] Creatinine [Mass/volume] in Serum or PlasmaOrdered By: Fernando Rosenberg on 10-11-2023 Creatinine [Mass/Vol] 2.04 mg/dL High 0.60-1.20 [facility] Comment on above: Performed By: #### U CREA URNA, UEOS #### [facility] [address] [place] [address] [place] Glucose [Mass/volume] in Ser um or PlasmaOrdered By: Fernando Rosenberg on 10-11-2023 Glucose [Mass/Vol] 96 mg/dL Normal 70-100 [facility] Comment on above: ADA recommended refe rence rangeRandom Glucose Reference Range is dependent on time and content of last meal. Glucose of more than 200 mg/dL in a nonstressed, ambulatory subject supports the diagnosis of Diabetes Mellitus. Result Comment: [place] [facility] Glucose Reference Range is dependent on time and content of last meal. Glucose of more than 200 mg/dL in a nonstressed, ambulatory subject supports the diagnosis of Diabetes Mellitus. ADA recommended reference range Performed By: #### U CREA, URNA, UEOS #### [facility] [address] [place] [address] No Panel InformationOrdered By: Fernando oRsenberg on 10-11-2023 Estimated GFR (CKD-EPI) 28.812 mL/Min [facility] Creatinine Clearance (Chem N/A [facility] Potassium [Moles/volume] in Serum or PlasmaOrdered By: Fernando Rosenberg on 10-11-2023 Potassium [Moles/Vol] 5.2 mmol/L High 3.5-5.1 [facility] Comment on above: Performed By: #### U CREA URNA, UEOS #### [facility] [address] [place] [address] Serum or plasma anion gap de terminationOrdered By: Fernando Rosenberg on 10-11-2023 Anion gap [Moles/Vol] 11.5 mmol/L Normal 6.0-15.0 [facility] Comment on above: Performed By: #### U CREA URNA, UEOS #### [facility] [address] [place] [address] Sodium [Moles/volume] in Ser um or PlasmaOrdered By: Fernando Rosenberg on 10-11-2023 Sodium [Moles/Vol] 140 mmol/L Normal 136-145 [facility] Comment on above: Performed By: #### U CREA, URNA, UEOS #### [facility] [address] [place] [address] Urea nitrogen [Mass/volume] in Serum or PlasmaOrdered By: Fernando Rosenberg on 10-11-2023 Urea nitrogen [Mass/Vol] 41 mg/dL High 7-25 [facility] Comment on above: Performed By: #### U CREA, URNA, UEOS #### [facility] [address] [place] [address] 36on 10-02-2023 36 Patient made aware. I told her to make sure to call Dr. Siddiqui's office of neurology. Normal [facility] Automated basophil %Ordered By: Fernando Rosenberg on 10-02-2023 Basophils/100 WBC (Bld) 0.8 % Normal . [facility] Comment on above: Performed By: #### U CREA, URNA, UEOS #### [facility] [address] [place] [address] Automated basophil countOrde red By: Fernando Rosenberg on 10-02-2023 Basophils (Bld) [#/Vol] 0.0 10*3/uL Normal 0.0-0.2 [facility] Comment on above: Result Comment: PERF ORMED BY: [place] [address] PATHOLOGIST NURSE ASSISTANT ARIC BUTLER M.D. Performed By: #### U CREA, URNA, UEOS #### [address] Automated blood monocyte cou ntOrdered By: Fernando Rosenberg on 10-02-2023 Monocytes (Bld) [#/Vol] 0.3 10*3/uL Normal 0.0-0.8 [facility] Comment on above: Performed By: #### U CREA, URNA, UEOS #### [address] Automated eosinophil %Ordere d By: Fernando Rosenberg on 10-02-2023 Eosinophils/100 WBC (Bld) 3.4 % Normal . [facility] Comment on above: Performed By: #### U CREA, URNA, UEOS #### [facility] [address] [place] [address] Automated eosinophil countOr dered By: Fernando Rosenberg on 10-02-2023 Eosinophils (Bld) [#/Vol] 0.2 10*3/uL Normal 0.0-0.45 [facility] Comment on above: Performed By: #### U CREA, URNA, UEOS #### [facility] [address] [place] [address] Automated monocyte %Ordered By: Fernando Rosenberg on 10-02-2023 Monocytes/100 WBC (Bld) 6.4 % Normal . [facility] Comment on above: Performed By: #### U CREA URNA, UEOS #### [address] Automated neutrophil %Ordere d By: Fernando Rosenberg on 10-02-2023 Neutrophils/100 WBC (Bld) 46.2 % Normal . [facility] Comment on above: Performed By: #### U CREA URNA UEOS #### [address] Basic Metabolic Panelon 09-14 Creatinine Clr Calc Pharmacy 60.65 Normal [facility] Comment on above: Result Comment: PERF ORMED BY: [place] [address] PATHOLOGIST NURSE ASSISTANT ARIC BUTLER M.D. Performed By: #### U CREA URNA UEOS #### [address] GFR/1.73 sq M.predicted MDRD (S/P/Bld) [Vol rate/Area] 41.013 mL/min/{1.73_m2} Normal [facility] Comment on above: Performed By: #### U CREJOSHUA PatelNA UEOS #### [address] Calcium [Mass/volume] in Ser um or PlasmaOrdered By: Fernando Rosenberg on 10-02-2023 Calcium [Mass/Vol] 9.0 mg/dL Normal 8.6-10.3 [facility] Comment on above: Performed By: #### U CREA, URNA, UEOS #### [address] Capillary blood glucose timmy urement by glucometer (mass/volume)Ordered By: Fernando Rosenberg on 10-02-2023 Glucose [Mass/Vol] 93 mg/dL Normal [facility] Comment on above: Random Glucose Refer ence Range is dependent on time and content of last meal. Glucose of more than 200 mg/dL in a nonstressed, ambulatory subject supports the diagnosis of Diabetes Mellitus. Result Comment: [facility] Glucose Reference Range is dependent on time and content of last meal. Glucose of more than 200 mg/dL in a nonstressed, ambulatory subject supports the diagnosis of Diabetes Mellitus. PERFORMED BY: [place] [address] PATHOLOGIST NURSE ASSISTANT ARIC BUTLER M.D. Performed By: #### G PATRICA #### Point of Care testing , Carbon dioxide, total [Moles /volume] in Serum or PlasmaOrdered By: Fernando Rosenberg on 10-02-2023 CO2 [Moles/Vol] 26.9 mmol/L Normal 21.0-31.0 [facility] Comment on above: Performed By: #### U CRETAYLOR Patel UEOS #### [address] Chloride [Moles/volume] in S brunilda or PlasmaOrdered By: Fernando Rosenberg on 10-02-2023 Chloride [Moles/Vol] 110 mmol/L High 98-107 [facility] Comment on above: Performed By: #### U TAYLOR MINAYA UEOS #### [address] Complete Blood Count Auto Di ffon 10-02-2023 Mean Corpuscular HGB Conc 33.2 g/dL Normal 32.0-35.0 [facility] Comment on above: Performed By: #### U CREA URNA UEOS #### [address] NRBC% 0.0 /100{WBC} Normal 0-0.5 [facility] Comment on above: Performed By: #### U CREAJOSHUANA UEOS #### [place] [address] [place] Creatinine [Mass/volume] in Serum or PlasmaOrdered By: Fernando Rosenberg on 10-02-2023 Creatinine [Mass/Vol] 1.52 mg/dL Significan t change up 0.60-1.20 [facility] Comment on above: Delta: 2.27 on 09/30-0758 Performed By: #### TAYLOR CONLEY UEOS #### [facility] [address] [place] [address] Erythrocyte distribution wid th [Ratio] by Automated countOrdered By: Fernando Rosenberg on 10-02-2023 Erythrocyte distribution width (RBC) [Ratio] 14.3 % Normal 11.9-15.3 [facility] Comment on above: Performed By: #### TAYLOR CONLEY UEOS #### [facility] [address] [place] [address] Erythrocytes [#/volume] in B lood by Automated countOrdered By: Fernando Rosenberg on 10-02-2023 RBC (Bld) [#/Vol] 3.47 10*6/uL Low 3.60-5.00 [facility] Comment on above: Performed By: #### TAYLOR CONLEY UEOS #### [facility] [address] [place] [address] Glucose Poct Glucometerson 0 10-02-2023 Glucose [Mass/Vol] 87 mg/dL Normal [facility] Comment on above: Result Comment: [place] [facility] Glucose Reference Range is dependent on time and content of last meal. Glucose of more than 200 mg/dL in a nonstressed, ambulatory subject supports the diagnosis of Diabetes Mellitus. PERFORMED BY: [place] [address] PATHOLOGIST NURSE ASSISTANT ARIC BUTLER M.D. Performed By: #### U TAYLOR MINAYA UEOS #### [facility] [address] [place] [address] Glucose [Mass/volume] in Ser um or PlasmaOrdered By: Fernando Rosenberg on 10-02-2023 Glucose [Mass/Vol] 85 mg/dL Normal 70-100 [facility] Comment on above: ADA recommended refe rence rangeRandom Glucose Reference Range is dependent on time and content of last meal. Glucose of more than 200 mg/dL in a nonstressed, ambulatory subject supports the diagnosis of Diabetes Mellitus. Result Comment: [facility] Glucose Reference Range is dependent on time and content of last meal. Glucose of more than 200 mg/dL in a nonstressed, ambulatory subject supports the diagnosis of Diabetes Mellitus. ADA recommended reference range Performed By: #### TAYLOR CONLEY UEOS #### [facility] [address] [place] [address] Hematocrit [Volume Fraction] of Blood by Automated countOrdered By: Fernando Rosenberg on 10-02-2023 Hematocrit (Bld) [Volume fraction] 31.5 % Low 34.0-46.4 [facility] Comment on above: Performed By: #### TAYLOR CONLEY UEOS #### [address] Hemoglobin [Mass/volume] in BloodOrdered By: Fernando Rosenberg on 10-02-2023 Hemoglobin (Bld) [Mass/Vol] 10.4 g/dL Low 11.8-15.4 [facility] Comment on above: Performed By: #### TAYLOR CONLEY UEOS #### [facility] [address] [place] [address] Leukocytes [#/volume] correc joaquin for nucleated erythrocytes in Blood by Automated counOrdered By: Fernando Rosenberg on 10-02-2023 WBC corrected for nucl RBC Auto (Bld) [#/Vol] 4.8 10*3/uL 3.8-11.6 [facility] Leukocytes [#/volume] in Blo od by Automated countOrdered By: Fernando Rosenberg on 10-02-2023 WBC (Bld) [#/Vol] 4.8 10*3/uL Normal 3.8-11.6 [facility] Comment on above: Performed By: #### TAYLOR CONLEY UEOS #### [facility] [address] [place] [address] [place] Lymphocytes [#/volume] in Bl ood by Automated countOrdered By: Fernando Rosenberg on 10-02-2023 Lymphocytes (Bld) [#/Vol] 2.1 10*3/uL Normal 1.00-4.8 [facility] Comment on above: Performed By: #### TAYLOR CONLEY UEOS #### [facility] [address] Lymphocytes/100 leukocytes i n Blood by Automated countOrdered By: Fernando Rosenberg on 10-02-2023 Lymphocytes/100 WBC (Bld) 43.2 % Normal . [facility] Comment on above: Performed By: #### TAYLOR CONLEY UEJD #### [address] MCH [Entitic mass] by Automa joaquin countOrdered By: Fernando Rosenberg on 10-02-2023 MCH (RBC) [Entitic mass] 30.1 pg Normal 24.7-34.3 [facility] Comment on above: Performed By: #### TAYLOR CONLEY UEJD #### [address] MCHC Auto (RBC) [Mass/Vol]Or dered By: Fernando Rosenberg on 10-02-2023 MCHC (RBC) [Mass/Vol] 33.2 g/dL 32.0-35.0 [facility] MCV [Entitic volume] by Auto mated countOrdered By: Fernando Rosenberg on 10-02-2023 MCV (RBC) [Entitic vol] 90.7 fL Normal 80-100 [facility] Comment on above: Performed By: #### TAYLOR CONLEY UEJD #### [facility] [address] [place] [address] Neutrophils [#/volume] in Bl ood by Automated countOrdered By: Fernando Rosenberg on 10-02-2023 Neutrophils (Bld) [#/Vol] 2.2 10*3/uL Normal 1.8-7.7 [facility] Comment on above: Performed By: #### TAYLOR CONLEY UEOS #### [facility] [address] No Panel InformationOrdered By: Fernando Rosenberg on 10-02-2023 Estimated GFR (CKD-EPI) 41.013 mL/Min [facility] Creatinine Clearance (Chem 60.65 [facility] Nucleated erythrocytes [Pres ence] in Blood by Automated countOrdered By: Fernando Rosenberg on 10-02-2023 Nucleated RBC Auto Ql (Bld) 0.0 /100{WBC} 0-0.5 [facility] Platelet mean volume [Entiti c volume] in Blood by Automated countOrdered By: Fernando Rosenberg on 10-02-2023 Platelet mean volume (Bld) [Entitic vol] 9.2 fL Normal 6.3-10.7 [facility] Comment on above: Performed By: #### U CREA URNA, UEOS #### [facility] [address] [place] [address] Platelets [#/volume] in Bloo d by Automated countOrdered By: Fernando Rosenberg on 10-02-2023 Platelets (Bld) [#/Vol] 230 10*3/uL Normal 150-450 [facility] Comment on above: Performed By: #### U CREA URNA, UEOS #### [facility] [address] [place] [address] Potassium [Moles/volume] in Serum or PlasmaOrdered By: Fernando Rosenberg on 10-02-2023 Potassium [Moles/Vol] 4.5 mmol/L Normal 3.5-5.1 [facility] Comment on above: Performed By: #### U CREA, URNA, UEOS #### [facility] [address] [place] [address] Serum or plasma anion gap de terminationOrdered By: Fernando Rosenberg on 10-02-2023 Anion gap [Moles/Vol] 9.6 mmol/L Normal 6.0-15.0 [facility] [facility] Comment on above: Performed By: #### U CREA, URNA, UEOS #### [facility] [address] [place] [address] [place] Sodium [Moles/volume] in Ser um or PlasmaOrdered By: Fernando Rosenberg on 10-02-2023 Sodium [Moles/Vol] 142 mmol/L Normal 136-145 [facility] Comment on above: Performed By: #### U TAYLOR MINAYA UEOS #### [facility] [address] [place] [address] [place] Urea nitrogen [Mass/volume] in Serum or PlasmaOrdered By: Fernando Rosenberg on 10-02-2023 Urea nitrogen [Mass/Vol] 34 mg/dL High 7- [facility] Comment on above: Performed By: #### TAYLOR CONLEY UEOS #### [facility] [address] [place] [address] Activated partial thrombopla stin time (aPTT) in platelet poor plasma by coagulation aOrdered By: Alma Deng on 10-01-2023 aPTT Coag (PPP) [Time] 30.1 s 25.1-36.5 [facility] Comment on above: A hematocrit value g reater than 55% may lead to inaccurate results in coagulation testing. Patients having hematocrit values >55% require a special collection tube for coagulation studies. Please contact the laboratory at [phone] for redraw instructions. Alanine aminotransferase [En zymatic activity/volume] in Serum or PlasmaOrdered By: Alma Deng on 10-01-2023 ALT [Catalytic activity/Vol] 19 U/L Normal - [facility] Comment on above: Order Comment: SPECI MEN GROSSLY HEMOLYZED. NOTIFIED IRIS Performed By: #### U CREATAYLOR UEOS #### [facility] [address] [place] [id number] [place] Albumin [Mass/volume] in Ser um or Plasma by Bromocresol green (BCG) dye binding methoOrdered By: Alma Deng on 10-01-2023 Albumin BCG dye [Mass/Vol] 3.9 g/dL 3.5-5.7 [facility] Alkaline phosphatase [Enzyma tic activity/volume] in Serum or PlasmaOrdered By: Mayratania Huyuche on 10-01-2023 ALP [Catalytic activity/Vol] 56 U/L Normal 34-104 [facility] Comment on above: Order Comment: SPECI MEN GROSSLY HEMOLYZED. NOTIFIED IRIS Performed By: #### U CREA, URNA, UEOS #### [facility] [address] [place] [address] [place] Aspartate aminotransferase [ Enzymatic activity/volume] in Serum or PlasmaOrdered By: Alma Huyuche on 10-01-2023 AST [Catalytic activity/Vol] 29 U/L Normal 13-39 [facility] Comment on above: Order Comment: SPECI MEN GROSSLY HEMOLYZED. NOTIFIED IRIS Performed By: #### U CREA, URNA, UEOS #### [address] Bacteria [Presence] in Urine by AutomatedOrdered By: Alma Huyuche on 10-01-2023 Bacteria Auto Ql (U) None seen [HPF] None Seen [facility] Bilirubin Test strip Ql (U)O rdered By: Mayratania Huyuche on 10-01-2023 Bilirubin Ql (U) Negative Negative [facility] Bilirubin.total [Mass/volume ] in Serum or PlasmaOrdered By: Alma Deng on 10-01-2023 Bilirubin [Mass/Vol] 0.3 mg/dL Normal 0.3-1.0 [facility] Comment on above: Order Comment: SPECI MEN GROSSLY HEMOLYZED. NOTIFIED IRIS Performed By: #### U CREA, URNA, UEOS #### [facility] [address] [place] [address] [place] Color of Urine by AutoOrdere d By: Alma Huyuche on 10-01-2023 Color (U) Colorless Normal Yellow [facility] Comment on above: Order Comment: Name Collection Type:: Other Performed By: #### A DDONUAPLUS #### [facility] [address] [place] [address] [place] Comprehensive Metabolic Pane pillo 10-01-2023 Albumin [Mass/Vol] 3.9 g/dL Normal 3.5-5.7 [facility] Comment on above: Order Comment: SPECI MEN GROSSLY HEMOLYZED. NOTIFIED IRIS Performed By: #### U CREA, URNA, UEOS #### [facility] [address] Anion gap [Moles/Vol] 10.8 mmol/L Normal 6.0-15.0 Th e [facility] Comment on above: Order Comment: SPECI MEN GROSSLY HEMOLYZED. NOTIFIED IRIS Performed By: #### U CREA, URNA, UEOS #### [facility] [address] Calcium [Mass/Vol] 8.8 mg/dL Normal 8.6-10.3 [facility] Comment on above: Order Comment: SPECI MEN GROSSLY HEMOLYZED. NOTIFIED IRIS Performed By: #### U CREA, URNA, UEOS #### [facility] [address] [place] [address] [place] Chloride [Moles/Vol] 110 mmol/L High 98-107 [facility] Comment on above: Order Comment: SPECI MEN GROSSLY HEMOLYZED. NOTIFIED IRIS Performed By: #### U CREA, URNA, UEOS #### [facility] [address] [place] [address] [place] CO2 [Moles/Vol] 24.1 mmol/L Normal 21.0-31.0 [facility] Comment on above: Order Comment: SPECI MEN GROSSLY HEMOLYZED. NOTIFIED IRIS Performed By: #### U CREA, URNA, UEOS #### [facility] [address] [place] [id number] [place] Creatinine [Mass/Vol] 2.27 mg/dL High 0.60-1.20 [facility] Comment on above: Order Comment: SPECI MEN GROSSLY HEMOLYZED. NOTIFIED IRIS Performed By: #### U CREA, URNA, UEOS #### [facility] [address] [place] [address] [place] Creatinine Clr Calc Pharmacy 40.81 Normal [facility] Comment on above: Order Comment: SPECI MEN GROSSLY HEMOLYZED. NOTIFIED IRIS Result Comment: PERF ORMED BY: [place] [address] PATHOLOGIST NURSE ASSISTANT ARIC BUTLER M.D. Performed By: #### U CREA, URNA, UEOS #### [place] [address] [place] GFR/1.73 sq M.predicted MDRD (S/P/Bld) [Vol rate/Area] 25.346 mL/min/{1.73_m2} Normal [facility] Comment on above: Order Comment: SPECI MEN GROSSLY HEMOLYZED. NOTIFIED IRIS Performed By: #### U CREA, URNA, UEOS #### [place] [address] [place] Glucose [Mass/Vol] 120 mg/dL High 70-100 [facility] Comment on above: Order Comment: SPECI MEN GROSSLY HEMOLYZED. NOTIFIED IRIS Result Comment: [facility] Glucose Reference Range is dependent on time and content of last meal. Glucose of more than 200 mg/dL in a nonstressed, ambulatory subject supports the diagnosis of Diabetes Mellitus. ADA recommended reference range Performed By: #### U CREA, URNA, UEOS #### [place] [address] [place] Potassium [Moles/Vol] 3.9 mmol/L Normal 3.5-5.1 [facility] Comment on above: Order Comment: SPECI MEN GROSSLY HEMOLYZED. NOTIFIED IRIS Performed By: #### U CREA, URNA, UEOS #### [place] [address] [place] Sodium [Moles/Vol] 141 mmol/L Normal 136-145 [facility] Comment on above: Order Comment: SPECI MEN GROSSLY HEMOLYZED. NOTIFIED IRIS Performed By: #### U CREA, URNA, UEOS #### [place] [address] [place] Urea nitrogen [Mass/Vol] 43 mg/dL High 7-25 [facility] Comment on above: Order Comment: SPECI MEN GROSSLY HEMOLYZED. NOTIFIED IRIS Performed By: #### U CREATAYLOR UEOS #### [address] Creatinine [Mass/volume] in UrineOrdered By: Alma Deng on 10-01-2023 Creatinine (U) [Mass/Vol] 65.00 mg/dL [facility] Comment on above: No reference range e stablished Creatinine, Urine (Random)on 10-01-2023 Creatinine, Urine (Random) 65.00 mg/dL Normal [facility] Comment on above: Result Comment: No r eference range established PERFORMED BY: [place] [address] PATHOLOGIST NURSE ASSISTANT ARIC BUTLER M.D. Performed By: #### U TAYLOR MINAYA UEOS #### [address] Dipstick and Microscopicon 0 10-01-2023 Bacteria,Urine None Seen Normal None Seen [facility] Comment on above: Order Comment: Name Collection Type:: Other Performed By: #### A DDONUAPLUS #### [address] Bilirubin,Urine Negative Normal Negative [facility] Comment on above: Order Comment: Name Collection Type:: Other Performed By: #### A DDONUAPLUS #### [address] Glucose Ql (U) Normal Normal Normal [facility] Comment on above: Order Comment: Name Collection Type:: Other Performed By: #### A DDONUAPLUS #### [address] Hyaline Casts,Urine 0-8 Normal 0-8 [facility] Comment on above: Order Comment: Name Collection Type:: Other Performed By: #### A DDONUAPLUS #### [address] Mucus,Urine Rare Normal [facility] Comment on above: Order Comment: Name Collection Type:: Other Result Comment: PERF ORMED BY: [place] [address] PATHOLOGIST NURSE ASSISTANT RAIC BUTLER M.D. Performed By: #### A DDONUAPLUS #### [place] [address] [place] Nitrite,Urine Negative Normal Negative [facility] Comment on above: Order Comment: Name Collection Type:: Other Performed By: #### A DDONUAPLUS #### [address] Occult Blood,Urine Negative Normal Negative [facility] Comment on above: Order Comment: Name Collection Type:: Other Result Comment: PERF ORMED BY: [place] [address] PATHOLOGIST NURSE ASSISTANT ARIC BUTLER M.D. Performed By: #### A DDONUAPLUS #### [address] Protein,Urine Negative Normal Negative [facility] Comment on above: Order Comment: Name Collection Type:: Other Performed By: #### A DDONUAPLUS #### [address] RBC,Urine None Seen Normal 0-4 [facility] Comment on above: Order Comment: Name Collection Type:: Other Performed By: #### A DDONUAPLUS #### [place] [address] [place] Specificy [place],Urine 1.009 Normal 1.001-1.030 [facility] Comment on above: Order Comment: Name Collection Type:: Other Performed By: #### A DDONUAPLUS #### [place] [address] [place] Urobilinogen,Urine Normal Normal Normal [facility] Comment on above: Order Comment: Name Collection Type:: Other Performed By: #### A DDONUAPLUS #### [place] [address] [place] WBC,Urine 3-4 Normal 0-4 [facility] Comment on above: Order Comment: Name Collection Type:: Other Performed By: #### A DDONUAPLUS #### [place] [address] [place] Eosinophil,Urineon 4 Eosinophil,Urine 0 % Normal 0-1 [facility] Comment on above: Result Comment: PERF ORMED BY: [place] [address] PATHOLOGIST NURSE ASSISTANT ARIC BUTLER M.D. Performed By: #### U CREA, URNA, UEOS #### [address] Eosinophils detection in uri ne sediment by Nava stainOrdered By: Alma Deng on 10-01-2023 Eosinophils Nvaa stain Ql (Urine sed) 0 % 0-1 [facility] Epithelial cells.squamous [# /area] in Urine sediment by Automated countOrdered By: Alma Deng on 10-01-2023 Epithelial cells.squamous Auto (Urine sed) [#/Area] N/A [facility] Erythrocytes [#/area] in Uri ne sediment by Automated countOrdered By: Alma Deng on 10-01-2023 RBC Auto (Urine sed) [#/Area] None seen [HPF] 0-4 [facility] Glucose Poct Glucometerson 0 10-01-2023 Commemt1 Glu2: Cleaned Meter Normal [facility] Comment on above: Result Comment: PERF ORMED BY: [place] [address] PATHOLOGIST NURSE ASSISTANT ARIC BUTLER M.D. Performed By: #### U CREA, URNA, UEOS #### [facility] [address] [place] [address] Glucose [Mass/Vol] 81 mg/dL Normal [facility] Comment on above: Result Comment: [facility] Glucose Reference Range is dependent on time and content of last meal. Glucose of more than 200 mg/dL in a nonstressed, ambulatory subject supports the diagnosis of Diabetes Mellitus. Performed By: #### U CREA, URNA, UEOS #### [facility] [address] [place] [id number] [facility] Glucose [Mass/Vol] 83 mg/dL Normal [facility] Comment on above: Result Comment: [place] [facility] Glucose Reference Range is dependent on time and content of last meal. Glucose of more than 200 mg/dL in a nonstressed, ambulatory subject supports the diagnosis of Diabetes Mellitus. PERFORMED BY: [place] [address] PATHOLOGIST NURSE ASSISTANT ARIC BUTLER M.D. Performed By: #### G LULS #### Point of Care testing , Glucose [Mass/Vol] 117 mg/dL Normal [facility] Comment on above: Result Comment: [place] Glucose Reference Range is dependent on time and content of last meal. Glucose of more than 200 mg/dL in a nonstressed, ambulatory subject supports the diagnosis of Diabetes Mellitus. PERFORMED BY: [place] [address] PATHOLOGIST NURSE ASSISTANT ARIC BUTLER M.D. Performed By: #### U CREA, URNA, UEOS #### [place] [id number] [facility] Glucose [Mass/Vol] 83 mg/dL Normal [facility] Comment on above: Result Comment: [place] Glucose Reference Range is dependent on time and content of last meal. Glucose of more than 200 mg/dL in a nonstressed, ambulatory subject supports the diagnosis of Diabetes Mellitus. PERFORMED BY: [place] [address] PATHOLOGIST NURSE ASSISTANT ARIC BUTLER M.D. Performed By: #### G LULS #### Point of Care testing , Glucose [Mass/volume] in Uri ne by Test stripOrdered By: Alma Deng on 10-01-2023 Glucose Test strip (U) [Mass/Vol] Normal mg/dL Normal [facility] Hemoglobin Test strip Ql (U) Ordered By: Alma Deng on 10-01-2023 Hemoglobin Ql (U) Negative Negative [facility] Hemogram CBC Without Diffon 10-01-2023 Erythrocyte distribution width (RBC) [Ratio] 14.7 % Normal 11.9-15.3 [facility] Comment on above: Performed By: #### U CREA, URNA, UEOS #### [address] Hematocrit (Bld) [Volume fraction] 32.9 % Low 34.0-46.4 [facility] Comment on above: Performed By: #### U CREA, URNA, UEOS #### [address] Hemoglobin (Bld) [Mass/Vol] 11.0 g/dL Low 11.8-15.4 [facility] Comment on above: Performed By: #### U CREA, URNA, UEOS #### [address] MCH (RBC) [Entitic mass] 30.1 pg Normal 24.7-34.3 [facility] Comment on above: Performed By: #### U CREA, URNA, UEOS #### [address] MCV (RBC) [Entitic vol] 89.6 fL Normal 80-100 [facility] Comment on above: Performed By: #### U CREA, URNA, UEOS #### [address] Mean Corpuscular HGB Conc 33.6 g/dL Normal 32.0-35.0 [facility] Comment on above: Performed By: #### U CREA, URNA, UEOS #### [address] Platelet mean volume (Bld) [Entitic vol] 10.5 fL Normal 6.3-10.7 [facility] Comment on above: Result Comment: PERF ORMED BY: [place] [address] PATHOLOGIST NURSE ASSISTANT JIANLAN SUN M.D. Performed By: #### U CREA, URNA, UEOS #### [facility] [address] Platelets (Bld) [#/Vol] 320 10*3/uL Normal 150-450 [facility] Comment on above: Performed By: #### U CREA, URNA, UEOS #### [facility] [address] RBC (Bld) [#/Vol] 3.67 10*6/uL Normal 3.60-5.00 [facility] Comment on above: Performed By: #### U CREA, URNA, UEOS #### [facility] [address] WBC (Bld) [#/Vol] 5.0 10*3/uL Normal 3.8-11.6 [facility] Comment on above: Performed By: #### U CREA, URNA, UEOS #### [address] Hyaline casts [#/area] in Ur ine sediment by Automated countOrdered By: Alma Deng on 10-01-2023 Hyaline casts Auto (Urine sed) [#/Area] 0-8 [LPF] 0-8 [facility] INR in Platelet poor plasma by Coagulation assayOrdered By: Alma Deng on 10-01-2023 INR Coag (PPP) [Relative time] 1.1 {INR} Normal [facility] Comment on above: INR Therapeutic Rang [...] valves: 3 - 4.5 Performed By: #### U TAYLOR MINAYA UEOS #### [facility] [address] [place] [address] [place] Ketones [Presence] in Urine by Test stripOrdered By: Alma Deng on 10-01-2023 Ketones Ql (U) Negative Normal Negative [facility] Comment on above: Order Comment: Name Collection Type:: Other Performed By: #### A DDONUAPLUS #### [facility] [address] [place] [address] [place] Leukocyte esterase [Presence ] in Urine by Test stripOrdered By: Alma Deng on 10-01-2023 Leukocyte esterase Test strip Ql (U) 1+ High Negative [facility] Comment on above: Order Comment: Name Collection Type:: Other Performed By: #### A DDONUAPLUS #### [facility] [address] [place] [address] [place] Leukocytes [#/area] in Urine sediment by Automated countOrdered By: Alma Deng on 10-01-2023 WBC Auto (Urine sed) [#/Area] 3-4 [HPF] 0-4 [facility] Mucus [Presence] in Urine by AutomatedOrdered By: Alma Deng on 10-01-2023 Mucus Auto Ql (U) Rare [LPF] [facility] Nitrite Test strip Ql (U)Ord ered By: Alma Deng on 10-01-2023 Nitrite Ql (U) Negative Negative [facility] No Panel InformationOrdered By: Fernando Rosenberg on 10-01-2023 Bedside Glucose Comment Glu2: cleaned meter [facility] Partial Thromboplastin Timeo n 10-01-2023 aPTT Coag (Bld) [Time] 30.1 s Normal 25.1-36.5 Th e [facility] Comment on above: Order Comment: REDRA W Result Comment: A he matocrit value greater than 55% may lead to inaccurate results in coagulation testing. Patients having hematocrit values >55% require a special collection tube for coagulation studies. Please contact the laboratory at [phone] for redraw instructions. PERFORMED BY: [address] [address] PATHOLOGIST NURSE ASSISTANT ARIC BUTLER M.D. Performed By: #### TAYLOR CONLEY UEOS #### [facility] [address] [place] [id number] [facility] Protein Test strip (U) [Mass /Vol]Ordered By: Alma Deng on 10-01-2023 Protein (U) [Mass/Vol] Negative Negative [facility] Protein [Mass/volume] in Ser um or PlasmaOrdered By: Alma Deng on 10-01-2023 Protein [Mass/Vol] 6.1 g/dL Low 6.4-8.9 [facility] Comment on above: Order Comment: SPECI MEN GROSSLY HEMOLYZED. NOTIFIED IRIS Performed By: #### TAYLOR CONLEY UEOS #### [facility] [address] [place] [address] [facility] Prothrombin time (PT)Ordered By: Alma Deng on 10-01-2023 PT Coag (PPP) [Time] 12.2 s Normal 9.0-12.9 [facility] Comment on above: A hematocrit value g reater than 55% may lead to inaccurate results in coagulation testing. Patients having hematocrit values >55% require a special collection tube for coagulation studies. Please contact the laboratory at [phone] for redraw instructions. Order Comment: REDRA W Result Comment: A he matocrit value greater than 55% may lead to inaccurate results in coagulation testing. Patients having hematocrit values >55% require a special collection tube for coagulation studies. Please contact the laboratory at [phone] for redraw instructions. Performed By: #### TAYLOR CONLEY UEOS #### [facility] [address] [place] [address] [facility] Serum globulin measurement b y calculation (mass/volume)Ordered By: Alma Deng on 10-01-2023 Globulin (S) [Mass/Vol] 2.2 g/dL Normal [facility] Comment on above: Order Comment: SPECI MEN GROSSLY HEMOLYZED. NOTIFIED IRIS Performed By: #### U CREATAYLOR UEOS #### [facility] [address] Serum or plasma albumin/glob ulin mass ratioOrdered By: Alma Huyuche on 10-01-2023 Albumin/Globulin [Mass ratio] 1.8 {ratio} Normal [facility] Comment on above: Order Comment: SPECI MEN GROSSLY HEMOLYZED. NOTIFIED IRIS Performed By: #### U CREA, URNA, UEOS #### [facility] [address] [place] [address] Sodium [Moles/volume] in Uri neOrdered By: Alma Huyuche on 10-01-2023 Sodium (U) [Moles/Vol] 54.0 mmol/L Normal F [facility] Comment on above: No reference range e stablished Result Comment: No r eference range established Performed By: #### U CREA URNA, UEOS #### [facility] [address] [place] [address] Specific gravity Test strip (U) [Rel density]Ordered By: Alma Huyuche on 10-01-2023 Specific gravity (U) [Rel density] 1.009 1.001-1.030 [facility] Urine appearanceOrdered By: Alma Huyuche on 10-01-2023 Appearance (U) Clear Normal Clear [facility] Comment on above: Order Comment: Name Collection Type:: Other Performed By: #### A DDONUAPLUS #### [facility] [address] [place] [address] Urobilinogen Test strip (U) [Mass/Vol]Ordered By: Alma Huyuche on 10-01-2023 Urobilinogen (U) [Mass/Vol] Normal mg/dL Normal [facility] pH of Urine by Test stripOrd ered By: Alma Huyuche on 10-01-2023 pH (U) 5.5 [pH] Normal 5.0-9.0 [facility] Comment on above: Order Comment: Name Collection Type:: Other Performed By: #### A DDONUAPLUS #### [facility] [address] [place] [address] [facility] 36on 09-20-2023 36 Patient's insurance denied a carotid duplex again. Is there anything else you'd like me to do? :( Normal [facility] Office Visiton 09-11-2023 Follow-up visit [id number] Nithin Humphreys 1970 F Date Provider Department Center 09/11/2023 [id number], EH CARD [facility] No family history on file Level of Service:67793 [place] OFFICE/OUTPATIENT ESTABLISHED MOD MDM 30 MIN Normal [facility] Albumin [Mass/volume] in Ser um or Plasma by Bromocresol green (BCG) dye binding methoOrdered By: Halle Mac on 08-10-2023 Albumin BCG dye [Mass/Vol] 4.0 g/dL 3.5-5.7 [facility] Automated erythrocytes count in urine sediment (number/area)Ordered By: Halle Mac on 08-10-2023 RBC Auto (Urine sed) [#/Area] None seen [HPF] 0-4 [facility] Automated leukocytes count i n urine sediment (number/area)Ordered By: Halle Mac on 08-10-2023 WBC Auto (Urine sed) [#/Area] 3-4 [HPF] 0-4 [facility] Automated urine color determ inationOrdered By: Halle Mac on 08-10-2023 Color (U) Yellow Normal Yellow [facility] Comment on above: Order Comment: Name Collection Type:: Clean-Voided Midstream Performed By: #### P MYLES CAMILOUAPLUS #### [facility] [address] [place] [address] [place] Bilirubin Test strip Ql (U)O rdered By: Halle Mac on 08-10-2023 Bilirubin Ql (U) Negative Negative [facility] Calcium [Mass/volume] in Ser um or PlasmaOrdered By: Halle Mac on 08-10-2023 Calcium [Mass/Vol] 9.3 mg/dL Normal 8.6-10.3 [facility] Comment on above: Performed By: #### U CREA, URNA, UEOS #### [facility] [address] Carbon dioxide, total [Moles /volume] in Serum or PlasmaOrdered By: Halle Mac on 08-10-2023 CO2 [Moles/Vol] 24.8 mmol/L Normal 21.0-31.0 [facility] Comment on above: Performed By: #### U CREA, URNA, UEOS #### [facility] [address] [place] [address] [place] Chloride [Moles/volume] in S brunilda or PlasmaOrdered By: Halle Mac on 08-10-2023 Chloride [Moles/Vol] 110 mmol/L High 98-107 [facility] Comment on above: Performed By: #### U CREA, URNA, UEOS #### [facility] [address] [place] [address] [place] Creatinine [Mass/volume] in Serum or PlasmaOrdered By: Halle Mac on 08-10-2023 Creatinine [Mass/Vol] 1.59 mg/dL High 0.60-1.20 [facility] Comment on above: Performed By: #### U CREA, URNA, UEOS #### [facility] [address] [place] [address] [place] Creatinine [Mass/volume] in UrineOrdered By: Halle Mac on 08-10-2023 Creatinine (U) [Mass/Vol] 92.0 mg/dL [facility] Comment on above: No reference range e stablished Dipstick and Microscopicon 0 08-10-2023 Appearance (U) Clear Normal Clear [facility] Comment on above: Order Comment: Name Collection Type:: Clean-Voided Midstream Performed By: #### P ROCRERAT, ADDONUAPLUS #### [facility] [address] [place] [address] [place] Bacteria,Urine None Seen Normal None Seen [facility] Comment on above: Order Comment: Name Collection Type:: Clean-Voided Midstream Performed By: #### P ROCRERAT, ADDONUAPLUS #### [address] Bilirubin,Urine Negative Normal Negative [facility] Comment on above: Order Comment: Name Collection Type:: Clean-Voided Midstream Performed By: #### P ROCRERAT, ADDONUAPLUS #### [address] Glucose Ql (U) Normal Normal Normal [facility] Comment on above: Order Comment: Name Collection Type:: Clean-Voided Midstream Performed By: #### P ROCRERAT, ADDONUAPLUS #### [address] Hyaline Casts,Urine None Seen Normal 0-8 [facility] Comment on above: Order Comment: Name Collection Type:: Clean-Voided Midstream Result Comment: PERF ORMED BY: [place] [address] PATHOLOGIST NURSE ASSISTANT ARIC BUTLER M.D. Performed By: #### P ROCRERAT, ADDONUAPLUS #### [address] Ketones Ql (U) Negative Normal Negative [facility] Comment on above: Order Comment: Name Collection Type:: Clean-Voided Midstream Performed By: #### P ROCRERAT, ADDONUAPLUS #### [address] Leukocyte esterase Test strip Ql (U) 2+ High Negative [facility] Comment on above: Order Comment: Name Collection Type:: Clean-Voided Midstream Performed By: #### P ROCRERAT, ADDONUAPLUS #### [address] Nitrite,Urine Negative Normal Negative [facility] Comment on above: Order Comment: Name Collection Type:: Clean-Voided Midstream Performed By: #### P ROCRERAT, ADDONUAPLUS #### [address] Occult Blood,Urine Negative Normal Negative [facility] Comment on above: Order Comment: Name Collection Type:: Clean-Voided Midstream Result Comment: PERF ORMED BY: [place] [address] PATHOLOGIST NURSE ASSISTANT ARIC BUTLER M.D. Performed By: #### P ROCRERAT, ADDONUAPLUS #### [address] Protein,Urine Negative Normal Negative [facility] Comment on above: Order Comment: Name Collection Type:: Clean-Voided Midstream Performed By: #### P ROCRERAT, ADDONUAPLUS #### [address] RBC,Urine None Seen Normal 0-4 [facility] Comment on above: Order Comment: Name Collection Type:: Clean-Voided Midstream Performed By: #### P ROCRERAT, ADDONUAPLUS #### [address] Specificy [place],Urine 1.015 Normal 1.001-1.030 [facility] Comment on above: Order Comment: Name Collection Type:: Clean-Voided Midstream Performed By: #### P ROCRERAT, ADDONUAPLUS #### [address] Squamous Epithelial Cell,Urine None Seen Normal 0-2 [facility] Comment on above: Order Comment: Name Collection Type:: Clean-Voided Midstream Performed By: #### P ROCRERAT, ADDONUAPLUS #### [place] [address] [place] Urobilinogen,Urine Normal Normal Normal [facility] Comment on above: Order Comment: Name Collection Type:: Clean-Voided Midstream Performed By: #### P ROCRERAT, ADDONUAPLUS #### [place] [address] [place] WBC,Urine 3-4 Normal 0-4 [facility] Comment on above: Order Comment: Name Collection Type:: Clean-Voided Midstream Performed By: #### P RAMOS CAMILO #### [facility] [address] [place] [address] Erythrocyte distribution wid th [Ratio] by Automated countOrdered By: Halle Mac on 08-10-2023 Erythrocyte distribution width (RBC) [Ratio] 15.1 % Normal 11.9-15.3 [facility] Comment on above: Performed By: #### U CREAJOSHUANA, UEOS #### [facility] [address] [place] [address] Erythrocytes [#/volume] in B lood by Automated countOrdered By: Halle Mac on 08-10-2023 RBC (Bld) [#/Vol] 3.89 10*6/uL Normal 3.60-5.00 [facility] Comment on above: Performed By: #### U CREAJOSHUANA, UEOS #### [facility] [address] [place] [address] [place] Ferritin [Mass/volume] in Se rum or PlasmaOrdered By: Halle Mac on 08-10-2023 Ferritin [Mass/Vol] 62.9 ng/mL Normal 11.0-306.8 [facility] Comment on above: Performed By: #### U CREA, URNA, UEOS #### [facility] [address] [place] [address] [place] Folate [Mass/volume] in Seru m or PlasmaOrdered By: Halle Mac on 08-10-2023 Folate [Mass/Vol] 15.7 ng/mL >5.9 [facility] Comment on above: Folate reference ran ge: >5.9 ng/mlThe WHO technical consultation on folate and vitamin [id number] has determined that folate concentrations lessthan 4 ng/ml are considered deficient. Glucose [Mass/volume] in Ser um or PlasmaOrdered By: Halle Mac on 08-10-2023 Glucose [Mass/Vol] 94 mg/dL Normal 70-100 [facility] Comment on above: ADA recommended refe rence rangeRandom Glucose Reference Range is dependent on time and content of last meal. Glucose of more than 200 mg/dL in a nonstressed, ambulatory subject supports the diagnosis of Diabetes Mellitus. Result Comment: [place] Glucose Reference Range is dependent on time and content of last meal. Glucose of more than 200 mg/dL in a nonstressed, ambulatory subject supports the diagnosis of Diabetes Mellitus. ADA recommended reference range Performed By: #### TAYLOR CONLEY UEOS #### [address] Hematocrit [Volume Fraction] of Blood by Automated countOrdered By: Halle Mac on 08-10-2023 Hematocrit (Bld) [Volume fraction] 35.0 % Normal 34.0-46.4 [facility] Comment on above: Performed By: #### TAYLOR CONLEY UEOS #### [address] Hemoglobin [Mass/volume] in BloodOrdered By: Halle Mac on 08-10-2023 Hemoglobin (Bld) [Mass/Vol] 11.5 g/dL Low 11.8-15.4 [facility] Comment on above: Performed By: #### TAYLOR CONLEY UEOS #### [address] Hemogram CBC Without Diffon 08-10-2023 Mean Corpuscular HGB Conc 32.9 g/dL Normal 32.0-35.0 [facility] Comment on above: Performed By: #### U TAYLOR MINAYA UEOS #### [address] WBC (Bld) [#/Vol] 4.0 10*3/uL Normal 3.8-11.6 [facility] Comment on above: Performed By: #### U TAYLOR MINAYA UEOS #### [address] Iron [Mass/volume] in Serum or PlasmaOrdered By: Halle Mac on 08-10-2023 Iron [Mass/Vol] 75 ug/dL Normal 50-212 [facility] Comment on above: Performed By: #### U TAYLOR MINAYA UEOS #### [facility] [address] Iron and TIBC Profileon 07-16 % Iron Saturation 15.6 % Low 20-50 [facility] Comment on above: Performed By: #### TAYLOR CONLEY UEOS #### [facility] [address] Total Iron Binding Capacity 480 ug/dL High 255-450 [facility] Comment on above: Performed By: #### TAYLOR CONLEY UEOS #### [facility] [address] [place] [address] Iron binding capacity [Mass/ volume] in Serum or PlasmaOrdered By: Halle Mac on 08-10-2023 Iron binding capacity [Mass/Vol] 480 ug/dL High 255-450 [facility] Iron saturation [Mass Fracti on] in Serum or PlasmaOrdered By: Halle Mac on 08-10-2023 Iron saturation [Mass fraction] 15.6 % Low 20-50 [facility] Ketones Auto test strip (U) [Mass/Vol]Ordered By: Halle Mac on 08-10-2023 Ketones (U) [Mass/Vol] Negative Negative [facility] - UrinalysisOrder ed By: Halle Mac on 08-10-2023 Hyaline casts LM Ql (Urine sed) None seen [LPF] 0-8 [facility] Leukocytes [#/volume] correc joaquin for nucleated erythrocytes in Blood by Automated counOrdered By: Halle Mac on 08-10-2023 WBC corrected for nucl RBC Auto (Bld) [#/Vol] 4.0 10*3/uL 3.8-11.6 [facility] MCH [Entitic mass] by Automa joaquin countOrdered By: Halle Mac on 08-10-2023 MCH (RBC) [Entitic mass] 29.6 pg Normal 24.7-34.3 [facility] Comment on above: Performed By: #### U TAYLOR MINAYA UEOS #### [facility] [address] MCHC Auto (RBC) [Mass/Vol]Or dered By: Halle Mac on 08-10-2023 MCHC (RBC) [Mass/Vol] 32.9 g/dL 32.0-35.0 [facility] MCV [Entitic volume] by Auto mated countOrdered By: Halle Mac on 08-10-2023 MCV (RBC) [Entitic vol] 90.0 fL Normal 80-100 [facility] Comment on above: Performed By: #### TAYLOR CONLEY UEOS #### [facility] [address] [place] [address] Magnesium [Mass/volume] in S brunilda or PlasmaOrdered By: Halle Mac on 08-10-2023 Magnesium [Mass/Vol] 1.9 mg/dL Normal 1.9-2.7 [facility] Comment on above: Performed By: #### TAYLOR CONLEY UEJD #### [facility] [address] [place] [address] Nitrite Test strip Ql (U)Ord ered By: Halle Mac on 08-10-2023 Nitrite Ql (U) Negative Negative [facility] No Panel InformationOrdered By: Halle Mac on 08-10-2023 Estimated GFR (CKD-EPI) 38.856 mL/Min [facility] Creatinine Clearance (Chem N/A [facility] Parathyrin.intact [Mass/volu me] in Serum or PlasmaOrdered By: Halle Mac on 08-10-2023 Parathyrin.intact [Mass/Vol] 38.7 pg/mL [facility] Parathyroid Hormone Intacton 08-10-2023 Parathyroid Hormone Intact 38.7 pg/mL Normal [facility] Comment on above: Result Comment: PERF ORMED BY: [address] [place] [address] PATHOLOGIST NURSE ASSISTANT ARIC BUTLER M.D. Performed By: #### U CREA, URNA, UEOS #### [place] [address] [place] Phosphate [Mass/volume] in S brunilda or PlasmaOrdered By: Halle Mac on 08-10-2023 Phosphate [Mass/Vol] 3.7 mg/dL Normal 2.5-4.5 [facility] Comment on above: Performed By: #### U CREA, URNA, UEOS #### [address] Platelet mean volume [Entiti c volume] in Blood by Automated countOrdered By: Halle Mac on 08-10-2023 Platelet mean volume (Bld) [Entitic vol] 9.8 fL Normal 6.3-10.7 [facility] Comment on above: Result Comment: PERF ORMED BY: [place] [address] PATHOLOGIST NURSE ASSISTANT ARIC BUTLER M.D. Performed By: #### U CREA, URNA, UEOS #### [address] Platelets [#/volume] in Bloo d by Automated countOrdered By: Halle Mac on 08-10-2023 Platelets (Bld) [#/Vol] 217 10*3/uL Normal 150-450 [facility] Comment on above: Performed By: #### U CREA, URNA, UEOS #### [place] [address] [place] Potassium [Moles/volume] in Serum or PlasmaOrdered By: Halel Mac on 08-10-2023 Potassium [Moles/Vol] 4.5 mmol/L Normal 3.5-5.1 [facility] Comment on above: Performed By: #### U CREA, URNA, UEOS #### [address] Protein Auto test strip (U) [Mass/Vol]Ordered By: Halle Mac on 08-10-2023 Protein (U) [Mass/Vol] Negative Negative [facility] Protein Creat Ratio Ur Rando mon 08-10-2023 Creatinine, Urine (Random) 92.0 mg/dL Normal [facility] Comment on above: Result Comment: No r eference range established Performed By: #### P ROXANA CAMILOONUAPLUS #### [address] Protein, Urine (Random) < 4 Normal 0-9 [facility] Comment on above: Performed By: #### P ROXANA CAMILOONUAPLUS #### [address] Urine Protein/Creatinine Ratio Not performed Normal 0-200 [facility] Comment on above: Result Comment: PERF ORMED BY: [place] [address] PATHOLOGIST NURSE ASSISTANT ARIC BUTLER M.D. Performed By: #### P MYLES CAMILOUAPLUS #### [place] [address] [place] Protein [Mass/volume] in Uri neOrdered By: Halle Mac on 08-10-2023 Protein (U) [Mass/Vol] mg/dL 0-9 [facility] Renal Function Panelon 08-09 Albumin [Mass/Vol] 4.0 g/dL Normal 3.5-5.7 [facility] Comment on above: Performed By: #### U CREAmanda URGREGG UEOS #### [place] [address] [place] GFR/1.73 sq M.predicted MDRD (S/P/Bld) [Vol rate/Area] 38.856 mL/min/{1.73_m2} Normal [facility] Comment on above: Performed By: #### U CREA, URNA, UEOS #### [place] [address] [place] Serum or plasma anion gap de terminationOrdered By: Halle Mac on 08-10-2023 Anion gap [Moles/Vol] 11.7 mmol/L Normal 6.0-15.0 [facility] Comment on above: Performed By: #### U TAYLOR MINAYA UEOS #### [facility] [address] [place] [address] [place] Sodium [Moles/volume] in Ser um or PlasmaOrdered By: Halle Mac on 08-10-2023 Sodium [Moles/Vol] 142 mmol/L Normal 136-145 [facility] Comment on above: Performed By: #### U CREATAYLOR UEOS #### [facility] [address] [place] [address] Specific gravity Auto test s trip (U) [Rel density]Ordered By: Halle Mac on 08-10-2023 Specific gravity (U) [Rel density] 1.015 1.001-1.030 [facility] Squamous epithelial cells de tection in urine sediment by light microscopyOrdered By: Halle Mac on 08-10-2023 Epithelial cells.squamous LM Ql (Urine sed) None seen [HPF] 0-2 [facility] Transferrin [Mass/volume] in Serum or PlasmaOrdered By: Halle Mac on 08-10-2023 Transferrin [Mass/Vol] 343 mg/dL Normal 203-362 [facility] Comment on above: Performed By: #### U CRETAYLOR Patel UEOS #### [facility] [address] [place] [address] [place] Urate [Mass/volume] in Serum or PlasmaOrdered By: Halle Mac on 08-10-2023 Urate [Mass/Vol] 8.6 mg/dL High 2.3-6.6 [facility] Comment on above: Performed By: #### U CREAJOSHUANA UEOS #### [facility] [address] [place] [address] [place] Urea nitrogen [Mass/volume] in Serum or PlasmaOrdered By: Halle Mac on 08-10-2023 Urea nitrogen [Mass/Vol] 32 mg/dL High 7-25 [facility] Comment on above: Performed By: #### U TAYLOR MINAYA USANAM #### [facility] [address] Urine bacteria detection by automated methodOrdered By: Halle Mac on 08-10-2023 Bacteria Auto Ql (U) None seen None Seen [facility] Urine clarity by refractomet ry automatedOrdered By: Halle Mac on 08-10-2023 Clarity Refractometry automated (U) Clear Clear [facility] Urine glucose measurement by automated test strip (mass/volume)Ordered By: Halle Mac on 08-10-2023 Glucose Auto test strip (U) [Mass/Vol] Normal mg/dL Normal [facility] Urine hemoglobin detection b y automated test stripOrdered By: Halle Mac on 08-10-2023 Hemoglobin Auto test strip Ql (U) Negative Negative [facility] Urine leukocyte esterase det ection by automated test stripOrdered By: Halle Mac on 08-10-2023 Leukocyte esterase Auto test strip Ql (U) 2+ High Negative [facility] Urine pH measurement by auto mated test stripOrdered By: Halle Mac on 08-10-2023 pH (U) 5.5 [pH] Normal 5.0-9.0 [facility] Comment on above: Order Comment: Name Collection Type:: Clean-Voided Midstream Performed By: #### P RAMOS CAMILO #### [facility] [address] [place] [address] Urine protein/creatinine rat ioOrdered By: Halle Mac on 08-10-2023 Protein/Creatinine (U) [Ratio] TNP [facility] Comment on above: Test not performed Urobilinogen Auto test strip (U) [Mass/Vol]Ordered By: Halle Mac on 08-10-2023 Urobilinogen (U) [Mass/Vol] Normal mg/dL Normal [facility] Vit. B12/Folate Profileon Folate 15.7 ng/mL Normal >5.9 [facility] Comment on above: Result Comment: Maria te reference range: >5.9 ng/ml The WHO technical consultation on folate and vitamin b12 deficiencies has determined that folate concentrations less than 4 ng/ml are considered deficient. Performed By: #### TAYLOR CONLEY UEOS #### [address] Vitamin B12 ser/plasOrdered By: Halle Mac on 08-10-2023 Cobalamin (Vitamin B12) [Mass/Vol] 164 pg/mL Low 180-914 [facility] Comment on above: Performed By: #### TAYLOR CONLEY UEOS #### [address] Vitamin D 25 Hydroxy Totalon 08-10-2023 Vitamin D 25 Hydroxy Total 22.4 ng/mL Low 30-100 [facility] Comment on above: Result Comment: AWAIS MIN D STATUS 25(OH)VITAMIN D RANGE (ng/mL) Deficient <20 Insufficient 20 to <30 Sufficient 30 to 100 Reference: Nicole Almonte, Ed LI, et al. Evaluation,treatment, and prevention of vitamin D deficiency; an Endocrine Society clinical practice guideline. JCEM. 2010; 96(7):1911-30. PERFORMED BY: [place] [address] PATHOLOGIST NURSE ASSISTANT ARIC BUTLER M.D. Performed By: #### TAYLOR CONLEY UEOS #### [address] Vitamin D+Metabolites [Mass/ volume] in Serum or PlasmaOrdered By: Halle Mac on 08-10-2023 Vitamin D+Metabolites [Mass/Vol] 22.4 ng/mL Low 30-100 [facility] Comment on above: VITAMIN D STATUS 25( OH)VITAMIN D RANGE (ng/mL) Deficient <20 Insufficient 20 to <30Sufficient 30 to 100Reference: Nicole Almonte, Ed LI, et al. Evaluation,treatment, and prevention of vitamin D deficiency; an Endocrine Society clinical practice guideline. JCEM. 2010; 96(7):1911-30. Valproate [Mass/volume] in S brunilda or PlasmaOrdered By: Fauzia Huffman on 06-19-2023 Valproate [Mass/Vol] 14.5 ug/mL 50.0-100.0 [facility] Comment on above: Last dose: - Alanine aminotransferase [En zymatic activity/volume] in Serum or PlasmaOrdered By: Halle Mac on 05-17-2023 ALT [Catalytic activity/Vol] 16 U/L 7-52 [facility] Albumin [Mass/volume] in Ser um or Plasma by Bromocresol green (BCG) dye binding methoOrdered By: Halle Mac on 05-17-2023 Albumin BCG dye [Mass/Vol] 4.3 g/dL 3.5-5.7 [facility] Alkaline phosphatase [Enzyma tic activity/volume] in Serum or PlasmaOrdered By: Halle Mac on 05-17-2023 ALP [Catalytic activity/Vol] 61 U/L 34-104 [facility] Aspartate aminotransferase [ Enzymatic activity/volume] in Serum or PlasmaOrdered By: Halle Mac on 05-17-2023 AST [Catalytic activity/Vol] 23 U/L 13-39 [facility] Automated erythrocytes count in urine sediment (number/area)Ordered By: Halle Mac on 05-17-2023 RBC Auto (Urine sed) [#/Area] 3-4 [HPF] 0-4 [facility] Automated leukocytes count i n urine sediment (number/area)Ordered By: Halle Mac on 05-17-2023 WBC Auto (Urine sed) [#/Area] 10-19 [HPF] 0-4 [facility] Bilirubin Test strip Ql (U)O rdered By: Halle Mac on 05-17-2023 Bilirubin Ql (U) 2+ Negative [facility] Bilirubin.total [Mass/volume ] in Serum or PlasmaOrdered By: Halle Mac on 05-17-2023 Bilirubin [Mass/Vol] 0.5 mg/dL 0.3-1.0 [facility] Calcium [Mass/volume] in Ser um or PlasmaOrdered By: Halle Mac on 05-17-2023 Calcium [Mass/Vol] 9.3 mg/dL 8.6-10.3 [facility] Carbon dioxide, total [Moles /volume] in Serum or PlasmaOrdered By: Halle Mac on 05-17-2023 CO2 [Moles/Vol] 28.0 mmol/L 21.0-31.0 [facility] Casts typing in urine sedime nt by light microscopyOrdered By: Halle Mac on 05-17-2023 Casts LM Nom (Urine sed) None seen [LPF] None Seen [facility] Chloride [Moles/volume] in S brunilda or PlasmaOrdered By: Halle Mac on 05-17-2023 Chloride [Moles/Vol] 107 mmol/L 98-107 [facility] Color Auto (U)Ordered By: Donald Mac on 05-17-2023 Color (U) Dark yellow Yellow [facility] Creatinine [Mass/volume] in Serum or PlasmaOrdered By: Halle Mac on 05-17-2023 Creatinine [Mass/Vol] 1.52 mg/dL 0.60-1.20 [facility] Creatinine [Mass/volume] in UrineOrdered By: Halle Mac on 05-17-2023 Creatinine (U) [Mass/Vol] mg/dL 11.0-20.0 [facility] Erythrocyte distribution wid th Auto (RBC) [Ratio]Ordered By: Halle Mac on 05-17-2023 Erythrocyte distribution width (RBC) [Ratio] 13.4 % 11.9-15.3 [facility] Ferritin [Mass/volume] in Se rum or PlasmaOrdered By: Halle Mac on 05-17-2023 Ferritin [Mass/Vol] 51.8 ng/mL 11.0-306.8 [facility] Fine granular cast count in urine sediment by microscopy (number/low power field )Ordered By: Halle Mac on 05-17-2023 Fine Granular Casts LM.LPF (Urine sed) [#/Area] 5-9 [LPF] 0-1 [facility] Globulin Calc (S) [Mass/Vol] Ordered By: Halle Mac on 05-17-2023 Globulin (S) [Mass/Vol] 2.3 g/dL [facility] Glucose [Mass/volume] in Ser um or PlasmaOrdered By: Halle Mac on 05-17-2023 Glucose [Mass/Vol] 123 mg/dL 70-100 [facility] Comment on above: ADA recommended refe rence rangeRandom Glucose Reference Range is dependent on time and content of last meal. Glucose of more than 200 mg/dL in a nonstressed, ambulatory subject supports the diagnosis of Diabetes Mellitus. Hematocrit Auto (Bld) [Volum e fraction]Ordered By: Halle Mac on 05-17-2023 Hematocrit (Bld) [Volume fraction] 36.1 % 34.0-46.4 [facility] Hemoglobin [Mass/volume] in BloodOrdered By: Halle Mac on 05-17-2023 Hemoglobin (Bld) [Mass/Vol] 11.8 g/dL 11.8-15.4 [facility] Iron [Mass/volume] in Serum or PlasmaOrdered By: Halle Mac on 05-17-2023 Iron [Mass/Vol] 57 ug/dL 50-212 [facility] Iron binding capacity [Mass/ volume] in Serum or PlasmaOrdered By: Halle Mac on 05-17-2023 Iron binding capacity [Mass/Vol] 538 ug/dL 255-450 [facility] Iron saturation [Mass Fracti on] in Serum or PlasmaOrdered By: Halle Mac on 05-17-2023 Iron saturation [Mass fraction] 10.6 % 20-50 [facility] Ketones Auto test strip (U) [Mass/Vol]Ordered By: Halle Mac on 05-17-2023 Ketones (U) [Mass/Vol] 1+ Negative [facility] - UrinalysisOrder ed By: Halle Mac on 05-17-2023 Hyaline casts LM Ql (Urine sed) None seen [LPF] 0-8 [facility] Leukocytes [#/volume] correc joaquin for nucleated erythrocytes in Blood by Automated counOrdered By: Halle Mac on 05-17-2023 WBC corrected for nucl RBC Auto (Bld) [#/Vol] 5.5 10*3/uL 3.8-11.6 [facility] MCH Auto (RBC) [Entitic mass ]Ordered By: Halle Mac on 05-17-2023 MCH (RBC) [Entitic mass] 29.4 pg 24.7-34.3 [facility] MCHC Auto (RBC) [Mass/Vol]Or dered By: Halle Mac on 05-17-2023 MCHC (RBC) [Mass/Vol] 32.8 g/dL 32.0-35.0 [facility] MCV Auto (RBC) [Entitic vol] Ordered By: Halle Mac on 05-17-2023 MCV (RBC) [Entitic vol] 89.4 fL 80-100 [facility] Magnesium [Mass/volume] in S brunilda or PlasmaOrdered By: Halle Mac on 05-17-2023 Magnesium [Mass/Vol] 2.0 mg/dL 1.9-2.7 [facility] Mucus LM Ql (Urine sed)Order ed By: Halle Mac on 05-17-2023 Mucus Ql (Urine sed) 3+ [LPF] [facility] Nitrite Test strip Ql (U)Ord ered By: Halle Mac on 05-17-2023 Nitrite Ql (U) Negative Negative [facility] No Panel InformationOrdered By: Halle Mac on 05-17-2023 Estimated GFR (CKD-EPI) 41.013 mL/Min [facility] Creatinine Clearance (Chem N/A [facility] Parathyrin.intact [Mass/volu me] in Serum or PlasmaOrdered By: Halle Mac on 05-17-2023 Parathyrin.intact [Mass/Vol] 36.3 pg/mL 12-88 [facility] Phosphate [Mass/volume] in S brunilda or PlasmaOrdered By: Halle Mac on 05-17-2023 Phosphate [Mass/Vol] 4.4 mg/dL 2.5-4.5 [facility] Platelet mean volume Auto (B ld) [Entitic vol]Ordered By: Halle Mac on 05-17-2023 Platelet mean volume (Bld) [Entitic vol] 9.5 fL 6.3-10.7 [facility] Platelets Auto (Bld) [#/Vol] Ordered By: Halle Mac on 05-17-2023 Platelets (Bld) [#/Vol] 233 10*3/uL 150-450 [facility] Potassium [Moles/volume] in Serum or PlasmaOrdered By: Halle Mac on 05-17-2023 Potassium [Moles/Vol] 3.8 mmol/L 3.5-5.1 [facility] Protein Auto test strip (U) [Mass/Vol]Ordered By: Halle Mac on 05-17-2023 Protein (U) [Mass/Vol] 30 mg/dL Negative Fi [facility] Protein [Mass/volume] in Ser um or PlasmaOrdered By: Halle Mac on 05-17-2023 Protein [Mass/Vol] 6.6 g/dL 6.4-8.9 [facility] Protein [Mass/volume] in Uri neOrdered By: Halle Mac on 05-17-2023 Protein (U) [Mass/Vol] 35 mg/dL 0-9 [facility] RBC Auto (Bld) [#/Vol]Ordere d By: Hlale Mac on 05-17-2023 RBC (Bld) [#/Vol] 4.03 10*6/uL 3.60-5.00 [facility] Serum or plasma albumin/glob ulin mass ratioOrdered By: Halle Mac on 05-17-2023 Albumin/Globulin [Mass ratio] 1.9 {ratio} [facility] Serum or plasma anion gap de terminationOrdered By: Halle Mac on 05-17-2023 Anion gap [Moles/Vol] 10.8 mmol/L 6.0-15.0 [facility] Sodium [Moles/volume] in Ser um or PlasmaOrdered By: Halle Mac on 05-17-2023 Sodium [Moles/Vol] 142 mmol/L 136-145 [facility] Specific gravity Auto test s trip (U) [Rel density]Ordered By: Halle Mac on 05-17-2023 Specific gravity (U) [Rel density] 1.025 1.001-1.030 [facility] Squamous epithelial cells de tection in urine sediment by light microscopyOrdered By: Halle Mac on 05-17-2023 Epithelial cells.squamous LM Ql (Urine sed) 3-4 [HPF] 0-2 [facility] Transferrin [Mass/volume] in Serum or PlasmaOrdered By: Halle Mac on 05-17-2023 Transferrin [Mass/Vol] 384 mg/dL 203-362 [facility] Urate [Mass/volume] in Serum or PlasmaOrdered By: Halle Mac on 05-17-2023 Urate [Mass/Vol] 7.3 mg/dL 2.3-6.6 [facility] Urea nitrogen [Mass/volume] in Serum or PlasmaOrdered By: Halle Mac on 05-17-2023 Urea nitrogen [Mass/Vol] 26 mg/dL 7-25 [facility] Urine bacteria detection by automated methodOrdered By: Halle Mac on 05-17-2023 Bacteria Auto Ql (U) None seen None Seen [facility] Urine clarity by refractomet ry automatedOrdered By: Halle Mac on 05-17-2023 Clarity Refractometry automated (U) Cloudy Clear [facility] Urine culture routineOrdered By: Halle Mac on 05-17-2023 Bacteria identified Cx Nom (U) 2 Days [facility] Urine glucose measurement by automated test strip (mass/volume)Ordered By: Halle Mac on 05-17-2023 Glucose Auto test strip (U) [Mass/Vol] Normal mg/dL Normal [facility] Urine hemoglobin detection b y automated test stripOrdered By: Halle Mac on 05-17-2023 Hemoglobin Auto test strip Ql (U) Negative Negative [facility] Urine leukocyte esterase det ection by automated test stripOrdered By: Halle Mac on 05-17-2023 Leukocyte esterase Auto test strip Ql (U) 1+ Negative [facility] Urine protein/creatinine rat ioOrdered By: Halle Mac on 05-17-2023 Protein/Creatinine (U) [Ratio] TNP [facility] Comment on above: Test not performed Urobilinogen Auto test strip (U) [Mass/Vol]Ordered By: Halle Mac on 05-17-2023 Urobilinogen (U) [Mass/Vol] Normal mg/dL Normal [facility] Valproate [Mass/volume] in S brunilda or PlasmaOrdered By: Fauzia Huffman on 05-17-2023 Valproate [Mass/Vol] 24.0 ug/mL 50.0-100.0 [facility] Comment on above: Last dose: - Vitamin D+Metabolites [Mass/ volume] in Serum or PlasmaOrdered By: Halle Mac on 05-17-2023 Vitamin D+Metabolites [Mass/Vol] 24.3 ng/mL 30-100 [facility] Comment on above: VITAMIN D STATUS 25( OH)VITAMIN D RANGE (ng/mL) Deficient <20 Insufficient 20 to <30Sufficient 30 to 100Reference: Karen MF,Nicole SCOTT, Ed LI, et al. Evaluation,treatment, and prevention of vitamin D deficiency; an Endocrine Society clinical practice guideline. JCEM. 2010; 96(7):1911-30. Yeast detection in urine sed iment by light microscopyOrdered By: Halle Mac on 05-17-2023 Yeast LM Ql (Urine sed) None seen [HPF] None Seen [facility] pH Auto test strip (U)Ordere d By: Halle Mac on 05-17-2023 pH (U) 5.0 [pH] 5.0-9.0 [facility] Provider Orderson 05-09-2023 Provider Orders [id number] FF Normal [facility] Office Visiton 03-14-2023 Follow-up visit [id number] Nithin Humphreys 1970 F Date Provider Department Center 03/14/2023 Pranay-TK GODOY [facility] No family history on file Level of Service:12906 [place] OFFICE/OUTPATIENT ESTABLISHED MOD MDM 30-39 MIN Normal [facility] BNPon 09-07-2022 Natriuretic peptide B (Bld) [Mass/Vol] 391.0 pg/mL Normal <=900.0 [facility] Comment on above: Performed By: #### L IPID, BMP #### [facility] [address] [place] [address] Dr. Jag Waldrop CBC AUTO DIFFon 09-07-2022 BASO # 0.1 103/ul Normal 0.0-0.1 [facility] Comment on above: Performed By: #### L IPID, BMP #### [facility] [address] [place] [address] Dr. Jag Waldrop Basophils/100 WBC (Bld) 1.4 % Normal 0.2-2.0 [facility] Comment on above: Performed By: #### L IPID, BMP #### [facility] [address] [place] [address] Dr. Jag Waldrop EO # 0.1 103/ul Normal 0.0-0.7 [facility] Comment on above: Performed By: #### L IPID, BMP #### [facility] [address] [place] [address] Dr. Jag Waldrop Eosinophils/100 WBC (Bld) 1.6 % Normal 0.9-7.0 [facility] Comment on above: Performed By: #### L IPID, BMP #### [facility] [address] [place] [address] Dr. Jag Waldrop Erythrocyte distribution width (RBC) [Ratio] 15.0 % Normal 11.0-15.0 [facility] Comment on above: Performed By: #### L IPID, BMP #### [facility] [address] [place] [address] Dr. Jag Waldrop Hematocrit (Bld) [Volume fraction] 37.2 % Normal 36.0-48.0 [facility] Comment on above: Performed By: #### L IPID, BMP #### [facility] [address] [place] [address] Dr. Jag Waldrop Hemoglobin (Bld) [Mass/Vol] 11.6 g/dL Critically low 12.0-16.0 [facility] Comment on above: Performed By: #### L IPID, BMP #### [facility] [address] [place] [address] Dr. Jag Waldrop IG # 0.01 10e3/ul Normal 0.00-0.03 [facility] Comment on above: Performed By: #### L IPID, BMP #### [facility] [address] [place] [address] Dr. Jag Waldrop IG % 0.2 % Normal 0.0-0.5 [facility] Comment on above: Performed By: #### L IPID, BMP #### [facility] [address] [place] [address] Dr. Jag Waldrop LYMPH # 1.9 103/ul Normal 1.2-3.8 [facility] Comment on above: Performed By: #### L IPID, BMP #### [facility] [address] [place] [address] Dr. Jag Waldrop Lymphocytes/100 WBC (Bld) 39.1 % Normal 20.5-60.0 [facility] Comment on above: Performed By: #### L IPID, BMP #### [facility] [address] [place] [address] Dr. Jag Waldrop MANUAL DIFF REQ NO Normal [facility] Comment on above: Performed By: #### L IPID, BMP #### [facility] [address] [place] [address] Dr. Jag Waldrop MCH (RBC) [Entitic mass] 27.5 pg Normal 26.7-34.0 [facility] Comment on above: Performed By: #### L IPID, BMP #### [facility] [address] [place] [address] Dr. Jag Waldrop MCHC (RBC) [Mass/Vol] 31.2 g/dL Normal 29.9-35.2 [facility] Comment on above: Performed By: #### L IPID, BMP #### [facility] [address] [place] [address] Dr. Jag Waldrop MCV (RBC) [Entitic vol] 88.2 fL Normal 81.0-99.0 [facility] Comment on above: Performed By: #### L IPID, BMP #### [facility] [address] [place] [address] Dr. Jag Waldrop MONO # 0.3 103/ul Normal 0.3-0.8 [facility] Comment on above: Performed By: #### L IPID, BMP #### [facility] [address] [place] [address] Dr. Jag Waldrop Monocytes/100 WBC (Bld) 6.5 % Normal 1.7-12.0 [facility] Comment on above: Performed By: #### L IPID, BMP #### [facility] [address] [place] [address] Dr. Jag Waldrop NEUT # 2.5 103/ul Normal 1.4-6.5 [facility] Comment on above: Performed By: #### L IPID, BMP #### [facility] [address] [place] [address] Dr. Jag Waldrop Neutrophils/100 WBC (Bld) 51.2 % Normal 43.0-75.0 [facility] Comment on above: Performed By: #### L IPID, BMP #### [facility] [address] [place] [address] Dr. Jag Waldrop Platelet mean volume (Bld) [Entitic vol] 10.5 fL Normal 9.5-13.5 [facility] Comment on above: Performed By: #### L IPID, BMP #### [facility] [address] [place] [address] Dr. Jag Waldrop PLT 272 103/ul Normal 150-450 [facility] Comment on above: Performed By: #### L IPID, BMP #### [facility] [address] [place] [address] Dr. Jag Waldrop RBC 4.22 106/ul Normal 4.20-5.40 [facility] Comment on above: Performed By: #### L IPID, BMP #### [facility] [address] [place] [address] Dr. Jag Waldrop WBC 4.9 103/ul Normal 4.0-11.0 [facility] Comment on above: Performed By: #### L IPID, BMP #### [facility] [address] [place] [address] Dr. Jag Waldrop ER URINE PROFILEon 3 Bilirubin Ql (U) Negative Normal NEGATIVE [facility] Comment on above: Performed By: #### E RUR #### [facility] [address] [place] [address] Dr. Jag Waldrop Clarity (U) CLEAR Normal CLEAR [facility] Comment on above: Performed By: #### E RUR #### [facility] [address] [place] [address] Dr. Jag Waldrop Color (U) LT. YELLOW Normal YELLOW [facility] Comment on above: Performed By: #### E RUR #### [facility] [address] [place] [address] Dr. Jag SOWAHTabitha A micrscopic examina tion will be performed if indicated. Normal [facility] Comment on above: Performed By: #### E RUR #### [facility] [address] [place] [address] Dr. Jag Waldrop Glucose Ql (U) Negative Normal NEGATIVE [facility] Comment on above: Performed By: #### E RUR #### [facility] [address] [place] [address] Dr. Jag Waldrop Hemoglobin Ql (U) Negative Normal NEGATIVE [facility] Comment on above: Performed By: #### E RUR #### [facility] [address] [place] [address] Dr. Jag Waldrop Ketones Ql (U) Negative Normal NEGATIVE [facility] Comment on above: Performed By: #### E RUR #### [facility] [address] [place] [address] Dr. Jag Waldrop LEUKOCYTES Negative Normal NEGATIVE [facility] Comment on above: Performed By: #### E RUR #### [facility] [address] [place] [address] Dr. Jag Waldrop Nitrite Ql (U) Negative Normal NEGATIVE [facility] Comment on above: Performed By: #### E RUR #### [facility] [address] [place] [address] Dr. Jag Waldrop pH (U) 7.0 [pH] Normal 5-9 [facility] Comment on above: Performed By: #### E RUR #### [facility] [address] [place] [address] Dr. Jag Waldrop SPEC GRAVITY 1.010 Normal 1.005-<=1.0 [facility] Comment on above: Performed By: #### E RUR #### [facility] [address] [place] [address] Dr. Jag Waldrop UA PROTEIN Negative Normal NEGATIVE/ TRACE [facility] Comment on above: Performed By: #### E RUR #### [facility] [address] [place] [address] Dr. Jag Waldrop UR MICRO IND NOT INDICATED Normal [facility] Comment on above: Performed By: #### E RUR #### [facility] [address] [place] [address] Dr. Jag Waldrop Urobilinogen Qn (U) 0.2 {Chris'U}/dL Normal 0.2 - 1. 0 [facility] Comment on above: Performed By: #### E RUR #### [facility] [address] [place] [address] Dr. Jag Waldrop PROF 14(COMP METB)on 023 Albumin [Mass/Vol] 3.9 g/dL Normal 3.4-5.0 [facility] Comment on above: Performed By: #### L IPID, BMP #### [facility] [address] [place] [address] Dr. Jag Waldrop Albumin/Globulin [Mass ratio] 1.2 {ratio} Normal [facility] Comment on above: Performed By: #### L IPID, BMP #### [facility] [address] [place] [address] Dr. Jag Waldrop ALP [Catalytic activity/Vol] 95 U/L Normal 46-116 [facility] Comment on above: Performed By: #### L IPID, BMP #### [facility] [address] [place] [address] Dr. Jag Waldrop ALT [Catalytic activity/Vol] 31 U/L Normal 14-59 [facility] Comment on above: Performed By: #### L IPID, BMP #### [facility] [address] [place] [address] Dr. Jag Waldrop Anion gap [Moles/Vol] 12.7 mmol/L Normal Th e [facility] Comment on above: Performed By: #### L IPID, BMP #### [facility] [address] [place] [address] Dr. Jag Waldrop AST [Catalytic activity/Vol] 34 U/L Normal 15-37 [facility] Comment on above: Performed By: #### L IPID, BMP #### [facility] [address] [place] [address] Dr. Jag Waldrop Bilirubin [Mass/Vol] 0.4 mg/dL Normal 0.2-1.0 [facility] Comment on above: Performed By: #### L IPID, BMP #### [facility] [address] [place] [address] Dr. Jag Waldrop Calcium [Mass/Vol] 9.1 mg/dL Normal 8.5-10.1 [facility] Comment on above: Performed By: #### L IPID, BMP #### [facility] [address] [place] [address] Dr. Jag Waldrop Chloride [Moles/Vol] 107 mmol/L Normal 98-107 [facility] Comment on above: Performed By: #### L IPID, BMP #### [facility] [address] [place] [address] Dr. Jag Waldrop CO2 [Moles/Vol] 28.1 mmol/L Normal 21.0-32.0 [facility] Comment on above: Performed By: #### L IPID, BMP #### [facility] [address] [place] [address] Dr. Jag Waldrop Creatinine [Mass/Vol] 1.18 mg/dL Critically high 0.55-1.02 [facility] Comment on above: Performed By: #### L IPID, BMP #### [facility] [address] [place] [address] Dr. Jag Waldrop EGFR-AF KENYAN 59 mL/min/1.73m2 Critically low >=60 [facility] Comment on above: Performed By: #### L IPID, BMP #### [facility] [address] [address] [address] Jag Waldrop EGFR-NON AF KENYAN 48 mL/min/1.73m2 Critically low >=60 [facility] Comment on above: Performed By: #### L IPID, BMP #### [facility] [address] [address] [address] Jag Waldrop Globulin (S) [Mass/Vol] 3.3 g/dL Normal [facility] Comment on above: Performed By: #### L IPID, BMP #### [facility] [address] [place] [address] Dr. Jag Waldrop Glucose [Mass/Vol] 111 mg/dL Critically high 74-106 T [facility] Comment on above: Performed By: #### L IPID, BMP #### [facility] [address] [place] [address] Dr. Jag Waldrop Potassium [Moles/Vol] 3.8 mmol/L Normal 3.5-5.1 [facility] Comment on above: Performed By: #### L IPID, BMP #### [facility] [address] [place] [address] Dr. Jag Waldrop Protein [Mass/Vol] 7.2 g/dL Normal 6.4-8.2 [facility] Comment on above: Performed By: #### L IPID, BMP #### [facility] [address] [place] [address] Dr. Jag Waldrop Sodium [Moles/Vol] 144 mmol/L Normal 136-145 [facility] Comment on above: Performed By: #### L IPID, BMP #### [facility] [address] [place] [address] Dr. Jag Waldrop Urea nitrogen [Mass/Vol] 19.0 mg/dL Critically high 7.0-18.0 [facility] Comment on above: Performed By: #### L IPID, BMP #### [facility] [address] [address] [address] Jag Waldrop Urea nitrogen/Creatinine [Mass ratio] 16.1 mg/mg Normal [facility] Comment on above: Performed By: #### L IPID, BMP #### [facility] [address] [address] [address] Jag Waldrop PROTIMEon 09-07-2022 INR Coag (PPP) [Relative time] {INR} Normal [facility] Comment on above: Performed By: #### P T #### [facility] [address] [address] [address] Jag Waldrop INR GUIDELINES SEE BELOW Normal [facility] Comment on above: Result Comment: MARTIN RED INR: 2.0 - 3.0 CONDITIONS NOT LISTED BELOW 2.5 - 3.5 FOR PROSTHETIC HEART VALVE REPLACEMENT 2.5 - 3.5 RECURRENT THROMBOSIS Performed By: #### P T #### [facility] [address] [place] [address] Dr. Jag Waldrop PT Coag (PPP) [Time] 9.7 s Normal 9.0-11.6 [facility] Comment on above: Performed By: #### P T #### [facility] [address] [place] [address] Dr. Jag Waldrop TROPONIN, HIGH SENSITIVITYon 09-07-2022 HSTROP 17.8 pg/mL Normal 4.0-51.3 [facility] Comment on above: Result Comment: CUT- OFF POINTS HAVE BEEN ESTABLISHED BASED ON THE FOURTH UNIVERSAL DEFINITIONS OF MYOCARDIAL INFARCTION. THE UPPER REFERENCE LIMIT (URL) OF TROPONIN, DEFINED THE 99TH PERCENTILE OF cTnI DISTRIBUTION IN A REFERENCE POPULATION, HAS BEEN CONFIRMED THE DECISION THRESHOLD FOR MD DIAGNOSIS. Performed By: #### L IPID, BMP #### [facility] [address] [place] [address] Dr. Jag Waldrop XR CHEST 2 Von [...] WAN JENKINS Date: 2022-09-07 16:47 Normal [facility] GLYCOHEMOGLOBIN A1Con 2022 ADA RECOMMENDATION SEE BELOW Normal [facility] Comment on above: Result Comment: ADA RECOMMENDED LIMIT 4.0 - 6.0 ADA THERAPEUTIC TARGET < 7.0 ACTION SUGGESTED > 7.0 Performed By: #### L IPID, BMP #### [facility] [address] [place] [address] Dr. Jag Waldrop Glucose [Mass/Vol] 120 mg/dL Normal [facility] Comment on above: Performed By: #### L IPID, BMP #### [facility] [address] [place] [address] Dr. Jag Waldrop HbA1c (Bld) [Mass fraction] 5.8 % Normal 4.5-6.2 [facility] Comment on above: Performed By: #### L IPID, BMP #### [facility] [address] [place] [address] Dr. Jag Waldrop PROF CHEM 8 (BAS METB)on Anion gap [Moles/Vol] 13.2 mmol/L Normal [facility] Comment on above: Performed By: #### B MP #### [facility] [address] [place] [address] Dr. Jag Waldrop Calcium [Mass/Vol] 9.0 mg/dL Normal 8.5-10.1 [facility] Comment on above: Performed By: #### B MP #### [facility] [address] [place] [address] Dr. Jag Waldrop Chloride [Moles/Vol] 107 mmol/L Normal 98-107 [facility] Comment on above: Performed By: #### B MP #### [facility] [address] [place] [address] Dr. Jag Waldrop CO2 [Moles/Vol] 26.3 mmol/L Normal 21.0-32.0 [facility] Comment on above: Performed By: #### B MP #### [facility] [address] [place] [address] Dr. Jag Waldrop Creatinine [Mass/Vol] 1.03 mg/dL Critically high 0.55-1.02 [facility] Comment on above: Performed By: #### B MP #### [facility] [address] [address] [address] Jag Waldrop EGFR-AF KENYAN >60 Normal >=60 [facility] Comment on above: Performed By: #### B MP #### [facility] [address] [address] [address] Jag Waldrop EGFR-NON AF KENYAN 56 mL/min/1.73m2 Critically low >=60 [facility] Comment on above: Performed By: #### B MP #### [facility] [address] [address] [address] Jag Waldrop Glucose [Mass/Vol] 149 mg/dL Critically high 74-106 T [facility] Comment on above: Performed By: #### B MP #### [facility] [address] [address] [address] Jag Waldrop Potassium [Moles/Vol] 4.5 mmol/L Normal 3.5-5.1 [facility] Comment on above: Performed By: #### B MP #### [facility] [address] [address] [address] Jag Waldrop Sodium [Moles/Vol] 142 mmol/L Normal 136-145 [facility] Comment on above: Performed By: #### B MP #### [facility] [address] [address] [address] Jag Waldrop Urea nitrogen [Mass/Vol] 22.0 mg/dL Critically high 7.0-18.0 [facility] Comment on above: Performed By: #### B MP #### [facility] [address] [address] [address] Jag Waldrop Urea nitrogen/Creatinine [Mass ratio] 21.4 mg/mg Normal [facility] Comment on above: Performed By: #### B MP #### [facility] [address] [address] ABD/PELVIS WO CONon [...] by: NATHAN COLE Date: 2022-05-29 22:50 Normal [facility] US KVNG DOP LEG RTon 05-30-19 23 [...] LUZ COELLO Date: 2022-05-29 22:42 Normal [facility] CBC AUTO DIFFon 05-29-2022 BASO # 0.1 103/ul Normal 0.0-0.1 [facility] Comment on above: Performed By: #### L IPID, BMP #### [facility] [address] [place] [address] Dr. Jag Waldrop Basophils/100 WBC (Bld) 0.7 % Normal 0.2-2.0 [facility] Comment on above: Performed By: #### L IPID, BMP #### [facility] [address] [place] [address] Dr. Jag Waldrop EO # 0.1 103/ul Normal 0.0-0.7 [facility] Comment on above: Performed By: #### L IPID, BMP #### [facility] [address] [place] [address] Dr. Jag Waldrop Eosinophils/100 WBC (Bld) 1.5 % Normal 0.9-7.0 [facility] Comment on above: Performed By: #### L IPID, BMP #### [facility] [address] [place] [address] Dr. Jag Waldrop Erythrocyte distribution width (RBC) [Ratio] 13.9 % Normal 11.0-15.0 [facility] Comment on above: Performed By: #### L IPID, BMP #### [facility] [address] [place] [address] Dr. Jag Waldrop Hematocrit (Bld) [Volume fraction] 34.2 % Critically low 36.0-48.0 [facility] Comment on above: Performed By: #### L IPID, BMP #### [facility] [address] [place] [address] Dr. Jag Waldrop Hemoglobin (Bld) [Mass/Vol] 10.9 g/dL Critically low 12.0-16.0 [facility] Comment on above: Performed By: #### L IPID, BMP #### [facility] [address] [place] [address] Dr. Jag Waldrop IG # 0.02 10e3/ul Normal 0.00-0.03 [facility] Comment on above: Performed By: #### L IPID, BMP #### [facility] [address] [place] [address] Dr. Jag Wladrop IG % 0.2 % Normal 0.0-0.5 [facility] Comment on above: Performed By: #### L IPID, BMP #### [facility] [address] [place] [address] Dr. Jag Waldrop LYMPH # 2.5 103/ul Normal 1.2-3.8 [facility] Comment on above: Performed By: #### L IPID, BMP #### [facility] [address] [place] [address] Dr. Jag Waldrop Lymphocytes/100 WBC (Bld) 30.4 % Normal 20.5-60.0 [facility] Comment on above: Performed By: #### L IPID, BMP #### [facility] [address] [place] [address] Dr. Jag Waldrop MANUAL DIFF REQ NO Normal [facility] Comment on above: Performed By: #### L IPID, BMP #### [facility] [address] [place] [address] Dr. Jag Waldrop MCH (RBC) [Entitic mass] 27.1 pg Normal 26.7-34.0 [facility] Comment on above: Performed By: #### L IPID, BMP #### [facility] [address] [place] [address] Dr. Jag Waldrop MCHC (RBC) [Mass/Vol] 31.9 g/dL Normal 29.9-35.2 [facility] Comment on above: Performed By: #### L IPID, BMP #### [facility] [address] [place] [address] Dr. Jag Waldrop MCV (RBC) [Entitic vol] 85.1 fL Normal 81.0-99.0 [facility] Comment on above: Performed By: #### L IPID, BMP #### [facility] [address] [place] [address] Dr. Jag Waldrop MONO # 0.5 103/ul Normal 0.3-0.8 [facility] Comment on above: Performed By: #### L IPID, BMP #### [facility] [address] [place] [address] Dr. Jag Waldrop Monocytes/100 WBC (Bld) 6.7 % Normal 1.7-12.0 [facility] Comment on above: Performed By: #### L IPID, BMP #### [facility] [address] [place] [address] Dr. Jag Waldrop NEUT # 4.9 103/ul Normal 1.4-6.5 [facility] Comment on above: Performed By: #### L IPID, BMP #### [facility] [address] [place] [address] Dr. Jag Waldrop Neutrophils/100 WBC (Bld) 60.5 % Normal 43.0-75.0 [facility] Comment on above: Performed By: #### L IPID, BMP #### [facility] [address] [place] [address] Dr. Jag Waldrop Platelet mean volume (Bld) [Entitic vol] 10.3 fL Normal 9.5-13.5 [facility] Comment on above: Performed By: #### L IPID, BMP #### [facility] [address] [place] [address] Dr. Jag Waldrop PLT 256 103/ul Normal 150-450 [facility] Comment on above: Performed By: #### L IPID, BMP #### [facility] [address] [place] [address] Dr. Jag Waldrop RBC 4.02 106/ul Critically low 4.20-5.40 [facility] Comment on above: Performed By: #### L IPID, BMP #### [facility] [address] [place] [address] Dr. Jag Waldrop WBC 8.1 103/ul Normal 4.0-11.0 [facility] Comment on above: Performed By: #### L IPID, BMP #### [facility] [address] [address] [address] Jag BRADLEY URINE PROFILEon 3 Bilirubin Ql (U) Negative Normal NEGATIVE [facility] Comment on above: Performed By: #### L IPID, BMP #### [facility] [address] [address] [address] Jag Waldrop Clarity (U) CLEAR Normal CLEAR [facility] Comment on above: Performed By: #### L IPID, BMP #### [facility] [address] [place] [address] Dr. Jag Waldrop Color (U) YELLOW Normal YELLOW [facility] Comment on above: Performed By: #### L IPID, BMP #### [facility] [address] [place] [address] Dr. Jag Waldrop ERUAHD A micrscopic examina tion will be performed if indicated. Normal [facility] Comment on above: Performed By: #### L IPID, BMP #### [facility] [address] [place] [address] Dr. Jag Waldrop Glucose Ql (U) Negative Normal NEGATIVE [facility] Comment on above: Performed By: #### L IPID, BMP #### [facility] [address] [place] [address] Dr. Jag Waldrop Hemoglobin Ql (U) Negative Normal NEGATIVE [facility] Comment on above: Performed By: #### L IPID, BMP #### [facility] [address] [address] [address] Jag Waldrop Ketones Ql (U) 15 mg/dl Abnormal NEGATIVE [facility] Comment on above: Performed By: #### L IPID, BMP #### [facility] [address] [place] [address] Dr. Jag Waldrop LEUKOCYTES TRACE Abnormal NEGATIVE [facility] Comment on above: Performed By: #### L IPID, BMP #### [facility] [address] [place] [address] Dr. Jag Waldrop Nitrite Ql (U) Negative Normal NEGATIVE [facility] Comment on above: Performed By: #### L IPID, BMP #### [facility] [address] [place] [address] Dr. Jag Waldrop pH (U) 5.5 [pH] Normal 5-9 [facility] Comment on above: Performed By: #### L IPID, BMP #### [facility] [address] [place] [address] Dr. Jag Waldrop SPEC GRAVITY 1.020 Normal 1.005-<=1.0 [facility] Comment on above: Performed By: #### L IPID, BMP #### [facility] [address] [place] [address] Dr. Jag Waldrop UA PROTEIN Negative Normal NEGATIVE/ TRACE [facility] Comment on above: Performed By: #### L IPID, BMP #### [facility] [address] [place] [address] Dr. Jag Waldrop UR MICRO IND INDICATED Normal [facility] Comment on above: Performed By: #### L IPID, BMP #### [facility] [address] [place] [address] Dr. Jag Waldrop Urobilinogen Qn (U) 0.2 {Chris'U}/dL Normal 0.2 - 1. 0 [facility] Comment on above: Performed By: #### L IPID, BMP #### [facility] [address] [place] [address] Dr. Jag Waldrop PROF CHEM 8 (BAS METB)on Anion gap [Moles/Vol] 14.2 mmol/L Normal [facility] Comment on above: Performed By: #### B MP #### [facility] [address] [place] [address] Dr. Jag Waldrop Calcium [Mass/Vol] 9.1 mg/dL Normal 8.5-10.1 [facility] Comment on above: Performed By: #### B MP #### [facility] [address] [place] [address] Dr. Jag Waldrop Chloride [Moles/Vol] 106 mmol/L Normal 98-107 [facility] Comment on above: Performed By: #### B MP #### [facility] [address] [address] [address] Jag Waldrop CO2 [Moles/Vol] 23.5 mmol/L Normal 21.0-32.0 [facility] Comment on above: Performed By: #### B MP #### [facility] [address] [address] [address] Jag Waldrop Creatinine [Mass/Vol] 1.29 mg/dL Critically high 0.55-1.02 [facility] Comment on above: Performed By: #### B MP #### [facility] [address] [address] [address] Jag Waldrop EGFR-AF KENYAN 53 mL/min/1.73m2 Critically low >=60 [facility] Comment on above: Performed By: #### B MP #### [facility] [address] [address] [address] Jag Waldrop EGFR-NON AF KENYAN 44 mL/min/1.73m2 Critically low >=60 [facility] Comment on above: Performed By: #### B MP #### [facility] [address] [address] [address] Jag Waldrop Glucose [Mass/Vol] 93 mg/dL Normal 74-106 [facility] Comment on above: Performed By: #### B MP #### [facility] [address] [address] [address] Jag Waldrop Potassium [Moles/Vol] 3.7 mmol/L Normal 3.5-5.1 [facility] Comment on above: Performed By: #### B MP #### [facility] [address] [address] [address] Jag Waldrop Sodium [Moles/Vol] 140 mmol/L Normal 136-145 [facility] Comment on above: Performed By: #### B MP #### [facility] [address] [address] [address] Jag Waldrop Urea nitrogen [Mass/Vol] 24.0 mg/dL Critically high 7.0-18.0 [facility] Comment on above: Performed By: #### B MP #### [facility] [address] [place] [address] Dr. Jag Waldrop Urea nitrogen/Creatinine [Mass ratio] 18.6 mg/mg Normal [facility] Comment on above: Performed By: #### B MP #### [facility] [address] [place] [address] Dr. Jag Waldrop URINE MICROSCOPIC ONLYon BACTERIA TRACE Abnormal NONE SEEN [facility] Comment on above: Performed By: #### L IPID, BMP #### [facility] [address] [place] [address] Dr. Jag Waldrop Bacteria identified Cx Nom (U) NOT INDICATED Normal [facility] Comment on above: Performed By: #### L IPID, BMP #### [facility] [address] [place] [address] Dr. Jag Waldrop CAST NONE SEEN Normal NONE SEEN [facility] Comment on above: Performed By: #### L IPID, BMP #### [facility] [address] [place] [address] Dr. Jag Waldrop Crystals LM Nom (Urine sed) NONE SEEN Normal NONE SEEN [facility] Comment on above: Performed By: #### L IPID, BMP #### [facility] [address] [place] [address] Dr. Jag Waldrop Epithelial cells LM Ql (Urine sed) RARE Normal NONE SEEN /RARE [facility] Comment on above: Performed By: #### L IPID, BMP #### [facility] [address] [place] [address] Dr. Jag Waldrop MUCOUS NONE SEEN Normal NONE SEEN [facility] Comment on above: Performed By: #### L IPID, BMP #### [facility] [address] [place] [address] Dr. Jag Waldrop RBC 5-10 Abnormal 0-2 [facility] Comment on above: Performed By: #### L IPID, BMP #### [facility] [address] [place] [address] Dr. Jag Waldrop WBC 0-2 Abnormal NONE SEEN [facility] Comment on above: Performed By: #### L IPID, BMP #### [facility] [address] [address] [address] Jag Waldrop MG MAMM SCREEN 3D ORESTES CADon 03-29-2022 MG MAMM SCREEN 3D ORESTES CAD Patient: SHERLY HUMPHREYS Exam Date: 03/29/2022 : 1970 Gender:F Ordering : AGUSTINA JANENE LEW [facility] Admission #: [id number] Family : Order #: [id number] CLICK HERE TO VIEW EXAM RADIOLOGY REPORT [...] head/neck cancer at age 73. LOCATION: [facility] BREAST COMPOSITION: Scattered areas fibroglandular density. FINDINGS: [...] M.D. on 03/29/2022 at 15:31 Normal [facility] MRI LSPINE WO W CONon 2021 MRI [...] by: KATHY LOBATO Date: 2022-03-23 11:26 Normal [facility] MRI TSPINE WO W CONon 2021 MRI [...] by: KATHY LOBATO Date: 2022-03-23 12:50 Normal [facility] PROF CHEM 8 (BAS METB)on Anion gap [Moles/Vol] 11.8 mmol/L Normal [facility] Comment on above: Performed By: #### P OCGLUC #### [facility] [address] [address] [address] Jag Waldrop Calcium [Mass/Vol] 9.0 mg/dL Normal 8.5-10.1 [facility] Comment on above: Performed By: #### P OCGLUC #### [facility] [address] [address] [address] Jag Waldrop Chloride [Moles/Vol] 107 mmol/L Normal 98-107 [facility] Comment on above: Performed By: #### P OCGLUC #### [facility] [address] [place] [address] Dr. Jag Waldrop CO2 [Moles/Vol] 30.2 mmol/L Normal 21.0-32.0 [facility] Comment on above: Performed By: #### P OCGLUC #### [facility] [address] [place] [address] Dr. Jag Waldrop Creatinine [Mass/Vol] 1.32 mg/dL Critically high 0.55-1.02 [facility] Comment on above: Performed By: #### P OCGLUC #### [facility] [address] [place] [address] Dr. Jag Waldrop EGFR-AF KENYAN 51 mL/min/1.73m2 Critically low >=60 [facility] Comment on above: Performed By: #### P OCGLUC #### [facility] [address] [place] [address] Dr. Jag Waldrop EGFR-NON AF KENYAN 42 mL/min/1.73m2 Critically low >=60 [facility] Comment on above: Performed By: #### P OCGLUC #### [facility] [address] [place] [address] Dr. Jag Waldrop Glucose [Mass/Vol] 117 mg/dL Critically high 74-106 [facility] Comment on above: Performed By: #### P OCGLUC #### [facility] [address] [place] [address] Dr. Jag Waldrop Potassium [Moles/Vol] 4.0 mmol/L Normal 3.5-5.1 [facility] Comment on above: Performed By: #### P OCGLUC #### [facility] [address] [address] [address] Jag Waldrop Sodium [Moles/Vol] 145 mmol/L Normal 136-145 [facility] Comment on above: Performed By: #### P OCGLUC #### [facility] [address] [address] [address] Jag Waldrop Urea nitrogen [Mass/Vol] 23.0 mg/dL Critically high 7.0-18.0 [facility] Comment on above: Performed By: #### P OCGLUC #### [facility] [address] [place] [address] Dr. Jag Waldrop Urea nitrogen/Creatinine [Mass ratio] 17.4 mg/mg Normal [facility] Comment on above: Performed By: #### P OCGLUC #### [facility] [address] [place] [address] Dr. Jag Waldrop CBC AUTO DIFFon 02-19-2022 BASO # 0.1 103/ul Normal 0.0-0.1 [facility] Comment on above: Performed By: #### P OCGLUC #### [facility] [address] [place] [address] Dr. Jag Waldrop Basophils/100 WBC (Bld) 1.0 % Normal 0.2-2.0 [facility] Comment on above: Performed By: #### P OCGLUC #### [facility] [address] [place] [address] Dr. Jag Waldrop EO # 0.1 103/ul Normal 0.0-0.7 [facility] Comment on above: Performed By: #### P OCGLUC #### [facility] [address] [place] [address] Dr. Jag Waldrop Eosinophils/100 WBC (Bld) 1.9 % Normal 0.9-7.0 [facility] Comment on above: Performed By: #### P OCGLUC #### [facility] [address] [place] [address] Dr. Jag Waldrop Erythrocyte distribution width (RBC) [Ratio] 13.2 % Normal 11.0-15.0 [facility] Comment on above: Performed By: #### P OCGLUC #### [facility] [address] [place] [address] Dr. Jag Waldrop Hematocrit (Bld) [Volume fraction] 36.7 % Normal 36.0-48.0 [facility] Comment on above: Performed By: #### P OCGLUC #### [facility] [address] [place] [address] Dr. Jag Waldrop Hemoglobin (Bld) [Mass/Vol] 11.4 g/dL Critically low 12.0-16.0 [facility] Comment on above: Performed By: #### P OCGLUC #### [facility] [address] [place] [address] Dr. Jag Waldrop IG # 0.03 10e3/ul Normal 0.00-0.03 [facility] Comment on above: Performed By: #### P OCGLUC #### [facility] [address] [place] [address] Dr. Jag Waldrop IG % 0.5 % Normal 0.0-0.5 [facility] Comment on above: Performed By: #### P OCGLUC #### [facility] [address] [place] [address] Dr. Jag Waldrop LYMPH # 2.1 103/ul Normal 1.2-3.8 [facility] Comment on above: Performed By: #### P OCGLUC #### [facility] [address] [place] [address] Dr. Jag Waldrop Lymphocytes/100 WBC (Bld) 34.1 % Normal 20.5-60.0 [facility] Comment on above: Performed By: #### P OCGLUC #### [facility] [address] [place] [address] Dr. Jag Waldrop MANUAL DIFF REQ NO Normal [facility] Comment on above: Performed By: #### P OCGLUC #### [facility] [address] [place] [address] Dr. Jag Waldrop MCH (RBC) [Entitic mass] 28.4 pg Normal 26.7-34.0 [facility] Comment on above: Performed By: #### P OCGLUC #### [facility] [address] [address] [address] Jag Waldrop MCHC (RBC) [Mass/Vol] 31.1 g/dL Normal 29.9-35.2 [facility] Comment on above: Performed By: #### P OCGLUC #### [facility] [address] [place] [address] Dr. Jag Waldrop MCV (RBC) [Entitic vol] 91.5 fL Normal 81.0-99.0 [facility] Comment on above: Performed By: #### P OCGLUC #### [facility] [address] [place] [address] Dr. Jag Waldrop MONO # 0.5 103/ul Normal 0.3-0.8 [facility] Comment on above: Performed By: #### P OCGLUC #### [facility] [address] [place] [address] Dr. Jag Waldrop Monocytes/100 WBC (Bld) 8.4 % Normal 1.7-12.0 [facility] Comment on above: Performed By: #### P OCGLUC #### [facility] [address] [place] [address] Dr. Jag Waldrop NEUT # 3.3 103/ul Normal 1.4-6.5 [facility] Comment on above: Performed By: #### P OCGLUC #### [facility] [address] [place] [address] Dr. Jag Waldrop Neutrophils/100 WBC (Bld) 54.1 % Normal 43.0-75.0 [facility] Comment on above: Performed By: #### P OCGLUC #### [facility] [address] [place] [address] Dr. Jag Waldrop Platelet mean volume (Bld) [Entitic vol] 10.6 fL Normal 9.5-13.5 [facility] Comment on above: Performed By: #### P OCGLUC #### [facility] [address] [address] [address] Jag Waldrop PLT 294 103/ul Normal 150-450 [facility] Comment on above: Performed By: #### P OCGLUC #### [facility] [address] [address] [address] Jag Waldrop RBC 4.01 106/ul Critically low 4.20-5.40 [facility] Comment on above: Performed By: #### P OCGLUC #### [facility] [address] [address] [address] Jag Waldrop WBC 6.2 103/ul Normal 4.0-11.0 [facility] Comment on above: Performed By: #### P OCGLUC #### [facility] [address] [place] [address] Dr. Jag Waldrop CRPon 02-19-2022 CRP [Mass/Vol] mg/L Normal <=1.0 [facility] Comment on above: Performed By: #### E RUR #### [facility] [address] [place] [address] TSPINE WO CONon [...] by: ALEX AVINA Date: 2022-02-19 19:25 Normal [facility] ER URINE PROFILEon 2 Bilirubin Ql (U) Negative Normal NEGATIVE [facility] Comment on above: Performed By: #### P OCGLUC #### [facility] [address] [place] [address] Dr. Jag Waldrop Clarity (U) CLEAR Normal CLEAR [facility] Comment on above: Performed By: #### P OCGLUC #### [facility] [address] [address] [address] Jag Waldrop Color (U) LT. YELLOW Normal YELLOW [facility] Comment on above: Performed By: #### P OCGLUC #### [facility] [address] [place] [address] Dr. Jag SAL A micrscopic examina tion will be performed if indicated. Normal [facility] Comment on above: Performed By: #### P OCGLUC #### [facility] [address] [place] [address] Dr. Jag Waldrop Glucose Ql (U) Negative Normal NEGATIVE [facility] Comment on above: Performed By: #### P OCGLUC #### [facility] [address] [place] [address] Dr. Jag Waldrop Hemoglobin Ql (U) Negative Normal NEGATIVE [facility] Comment on above: Performed By: #### P OCGLUC #### [facility] [address] [place] [address] Dr. Jag Waldrop Ketones Ql (U) Negative Normal NEGATIVE [facility] Comment on above: Performed By: #### P OCGLUC #### [facility] [address] [place] [address] Dr. Jag Waldrop LEUKOCYTES Negative Normal NEGATIVE [facility] Comment on above: Performed By: #### P OCGLUC #### [facility] [address] [place] [address] Dr. Jag Waldrop Nitrite Ql (U) Negative Normal NEGATIVE [facility] Comment on above: Performed By: #### P OCGLUC #### [facility] [address] [place] [address] Dr. Jag Waldrop pH (U) 5.5 [pH] Normal 5-9 [facility] Comment on above: Performed By: #### P OCGLUC #### [facility] [address] [place] [address] Dr. Jag Waldrop SPEC GRAVITY 1.020 Normal 1.005-<=1.0 25 [facility] Comment on above: Performed By: #### P OCGLUC #### [facility] [address] [place] [address] Dr. Jag Waldrop UA PROTEIN Negative Normal NEGATIVE/ TRACE [facility] Comment on above: Performed By: #### P OCGLUC #### [facility] [address] [place] [address] Dr. Jag Waldrop UR MICRO IND NOT INDICATED Normal [facility] Comment on above: Performed By: #### P OCGLUC #### [facility] [address] [place] [address] Dr. Jag Waldrop Urobilinogen Qn (U) 0.2 {Chris'U}/dL Normal 0.2 - 1. 0 [facility] Comment on above: Performed By: #### P OCGLUC #### [facility] [address] [place] [address] Dr. Jag Waldrop PROF CHEM 8 (BAS METB)on Anion gap [Moles/Vol] 10.8 mmol/L Normal [facility] Comment on above: Performed By: #### E RUR #### [facility] [address] [place] [address] Dr. Jag Waldrop Calcium [Mass/Vol] 9.0 mg/dL Normal 8.5-10.1 [facility] Comment on above: Performed By: #### E RUR #### [facility] [address] [place] [address] Dr. Jag Waldrop Chloride [Moles/Vol] 106 mmol/L Normal 98-107 [facility] Comment on above: Performed By: #### E RUR #### [facility] [address] [place] [address] Dr. Jag Waldrop CO2 [Moles/Vol] 28.1 mmol/L Normal 21.0-32.0 [facility] Comment on above: Performed By: #### E RUR #### [facility] [address] [place] [address] Dr. Jag Waldrop Creatinine [Mass/Vol] 1.06 mg/dL Critically high 0.55-1.02 [facility] Comment on above: Performed By: #### E RUR #### [facility] [address] [place] [address] Dr. Jag Waldrop EGFR-AF KENYAN >60 Normal >=60 [facility] Comment on above: Performed By: #### E RUR #### [facility] [address] [place] [address] Dr. Jag Waldrop EGFR-NON AF KENYAN 55 mL/min/1.73m2 Critically low >=60 [facility] Comment on above: Performed By: #### E RUR #### [facility] [address] [place] [address] Dr. Jag Waldrop Glucose [Mass/Vol] 89 mg/dL Normal 74-106 [facility] Comment on above: Performed By: #### E RUR #### [facility] [address] [place] [address] Dr. Jag Waldrop Potassium [Moles/Vol] 3.9 mmol/L Normal 3.5-5.1 [facility] Comment on above: Performed By: #### E RUR #### [facility] [address] [place] [address] Dr. Jag Waldrop Sodium [Moles/Vol] 141 mmol/L Normal 136-145 [facility] Comment on above: Performed By: #### E RUR #### [facility] [address] [place] [address] Dr. Jag Waldrop Urea nitrogen [Mass/Vol] 19.0 mg/dL Critically high 7.0-18.0 [facility] Comment on above: Performed By: #### E RUR #### [facility] [address] [place] [address] Dr. Jag Waldrop Urea nitrogen/Creatinine [Mass ratio] 17.9 mg/mg Normal [facility] Comment on above: Performed By: #### E RUR #### [facility] [address] [place] [address] Dr. Jag Waldrop SED RATE [facility] 2021 SED RATE 19 mm/hr Normal <=30 [facility] Comment on above: Performed By: #### L IPID, BMP #### [facility] [address] [place] [address] Dr. Jag Waldrop PROF CHEM 8 (BAS METB)on Anion gap [Moles/Vol] 17.3 mmol/L Normal [facility] Comment on above: Performed By: #### L IPID, BMP #### [facility] [address] [place] [address] Dr. Jag Waldrop Calcium [Mass/Vol] 9.2 mg/dL Normal 8.5-10.1 [facility] Comment on above: Performed By: #### L IPID, BMP #### [facility] [address] [place] [address] Dr. Jag Waldrop Chloride [Moles/Vol] 108 mmol/L Critically high 98-107 [facility] Comment on above: Performed By: #### L IPID, BMP #### [facility] [address] [place] [address] Dr. Jag Waldrop CO2 [Moles/Vol] 20.0 mmol/L Critically low 21.0-32.0 [facility] Comment on above: Performed By: #### L IPID, BMP #### [facility] [address] [place] [address] Dr. Jag Waldrop Creatinine [Mass/Vol] 1.40 mg/dL Critically high 0.55-1.02 [facility] Comment on above: Performed By: #### L IPID, BMP #### [facility] [address] [place] [address] Dr. Jag Waldrop EGFR-AF KENYAN 48 mL/min/1.73m2 Critically low >=60 [facility] Comment on above: Performed By: #### L IPID, BMP #### [facility] [address] [address] [address] Jag Waldrop EGFR-NON AF KENYAN 40 mL/min/1.73m2 Critically low >=60 [facility] Comment on above: Performed By: #### L IPID, BMP #### [facility] [address] [place] [address] Dr. Jag Waldrop Glucose [Mass/Vol] 126 mg/dL Critically high 74-106 [facility] Comment on above: Performed By: #### L IPID, BMP #### [facility] [address] [place] [address] Dr. Jag Waldrop Potassium [Moles/Vol] 5.3 mmol/L Critically high 3.5-5.1 [facility] Comment on above: Performed By: #### L IPID, BMP #### [facility] [address] [place] [address] Dr. Jag Waldrop Sodium [Moles/Vol] 140 mmol/L Normal 136-145 [facility] Comment on above: Performed By: #### L IPID, BMP #### [facility] [address] [place] [address] Dr. Jag Waldrop Urea nitrogen [Mass/Vol] 31.0 mg/dL Critically high 7.0-18.0 [facility] Comment on above: Performed By: #### L IPID, BMP #### [facility] [address] [place] [address] Dr. Jag Waldrop Urea nitrogen/Creatinine [Mass ratio] 22.1 mg/mg Normal [facility] Comment on above: Performed By: #### L IPID, BMP #### [facility] [address] [place] [address] Dr. Jag Waldrop CBC AUTO DIFFon 01-23-2022 BASO # 0.1 103/ul Normal 0.0-0.1 [facility] Comment on above: Performed By: #### C BC #### [facility] [address] [place] [address] Dr. Jag Waldrop Basophils/100 WBC (Bld) 1.0 % Normal 0.2-2.0 [facility] Comment on above: Performed By: #### C BC #### [facility] [address] [place] [address] Dr. Jag Waldrop EO # 0.2 103/ul Normal 0.0-0.7 [facility] Comment on above: Performed By: #### C BC #### [facility] [address] [place] [address] Dr. Jag Waldrop Eosinophils/100 WBC (Bld) 3.3 % Normal 0.9-7.0 [facility] Comment on above: Performed By: #### C BC #### [facility] [address] [place] [address] Dr. Jag Waldrop Erythrocyte distribution width (RBC) [Ratio] 13.2 % Normal 11.0-15.0 [facility] Comment on above: Performed By: #### C BC #### [facility] [address] [place] [address] Dr. Jag Waldrop Hematocrit (Bld) [Volume fraction] 35.6 % Critically low 36.0-48.0 [facility] Comment on above: Performed By: #### C BC #### [facility] [address] [place] [address] Dr. Jag Waldrop Hemoglobin (Bld) [Mass/Vol] 10.6 g/dL Critically low 12.0-16.0 [facility] Comment on above: Performed By: #### C BC #### [facility] [address] [place] [address] Dr. Jag Waldrop IG # 0.01 10e3/ul Normal 0.00-0.03 [facility] Comment on above: Performed By: #### C BC #### [facility] [address] [place] [address] Dr. Jag Waldrop IG % 0.2 % Normal 0.0-0.5 [facility] Comment on above: Performed By: #### C BC #### [facility] [address] [place] [address] Dr. Jag Waldrop LYMPH # 1.7 103/ul Normal 1.2-3.8 [facility] Comment on above: Performed By: #### C BC #### [facility] [address] [place] [address] Dr. Jag Waldrop Lymphocytes/100 WBC (Bld) 35.4 % Normal 20.5-60.0 [facility] Comment on above: Performed By: #### C BC #### [facility] [address] [place] [address] Dr. Jag Waldrop MANUAL DIFF REQ NO Normal [facility] Comment on above: Performed By: #### C BC #### [facility] [address] [place] [address] Dr. Jag Waldrop MCH (RBC) [Entitic mass] 29.0 pg Normal 26.7-34.0 [facility] Comment on above: Performed By: #### C BC #### [facility] [address] [place] [address] Dr. Jag Waldrop MCHC (RBC) [Mass/Vol] 29.8 g/dL Critically low 29.9-35.2 [facility] Comment on above: Performed By: #### C BC #### [facility] [address] [place] [address] Dr. Jag Waldrop MCV (RBC) [Entitic vol] 97.3 fL Normal 81.0-99.0 [facility] Comment on above: Performed By: #### C BC #### [facility] [address] [place] [address] Dr. Jag Waldrop MONO # 0.3 103/ul Normal 0.3-0.8 [facility] Comment on above: Performed By: #### C BC #### [facility] [address] [place] [address] Dr. Jag Waldrop Monocytes/100 WBC (Bld) 6.8 % Normal 1.7-12.0 [facility] Comment on above: Performed By: #### C BC #### [facility] [address] [place] [address] Dr. Jag Waldorp NEUT # 2.6 103/ul Normal 1.4-6.5 [facility] Comment on above: Performed By: #### C BC #### [facility] [address] [address] [address] Jag Waldrop Neutrophils/100 WBC (Bld) 53.3 % Normal 43.0-75.0 [facility] Comment on above: Performed By: #### C BC #### [facility] [address] [address] [address] Jag Waldrop Platelet mean volume (Bld) [Entitic vol] 11.0 fL Normal 9.5-13.5 [facility] Comment on above: Performed By: #### C BC #### [facility] [address] [address] [address] Jag Waldrop PLT 230 103/ul Normal 150-450 [facility] Comment on above: Performed By: #### C BC #### [facility] [address] [place] [address] Dr. Jag Waldrop RBC 3.66 106/ul Critically low 4.20-5.40 [facility] Comment on above: Performed By: #### C BC #### [facility] [address] [place] [address] Dr. Jag Waldrop WBC 4.8 103/ul Normal 4.0-11.0 [facility] Comment on above: Performed By: #### C BC #### [facility] [address] [place] [address] Dr. Jag Waldrop FERRITINon 01-23-2022 Ferritin [Mass/Vol] 35.0 ng/mL Normal 8.0-252.0 [facility] Comment on above: Performed By: #### L IPID, BMP #### [facility] [address] [place] [address] Dr. Jag Waldrop IRONon 01-23-2022 Iron [Mass/Vol] 71.0 ug/dL Normal 50.0-170.0 [facility] Comment on above: Performed By: #### L IPID, BMP #### [facility] [address] [place] [address] Dr. Jag Waldrop LIPID PROFILEon 01-23-2022 CHOL-HDL RATIO NORM SEE BELOW Normal [facility] Comment on above: Result Comment: 3.3 - 4.4 LOW RISK 4.4 - 7.1 AVERAGE RISK 7.1 - 11.0 MODERATE RISK >11.0 HIGH RISK Performed By: #### L IPID, BMP #### [facility] [address] [place] [address] Dr. Jag Waldrop Cholesterol [Mass/Vol] 133 mg/dL Normal <=200 [facility] Comment on above: Performed By: #### L IPID, BMP #### [facility] [address] [address] [address] Jag Waldrop Cholesterol in HDL [Mass/Vol] 41 mg/dL Normal 40-60 [facility] Comment on above: Performed By: #### L IPID, BMP #### [facility] [address] [place] [address] Dr. Jag Waldrop Cholesterol in LDL [Mass/Vol] 70.8 mg/dL Normal [facility] Comment on above: Performed By: #### L IPID, BMP #### [facility] [address] [place] [address] Dr. Jag Waldrop Cholesterol.total/Chol esterol in HDL [Mass ratio] 3.2 {ratio} Normal [facility] Comment on above: Performed By: #### L IPID, BMP #### [facility] [address] [place] [address] Dr. Jag Waldrop HDL NORMAL > or = 60 mg/dl - LO W CARDIOVASCULAR RISK <40 mg/dl - HIGH CARDIOVASCULAR RISK Normal [facility] Comment on above: Performed By: #### L IPID, BMP #### [facility] [address] [place] [address] Dr. Jag Waldrop LDL CALC NORMAL SEE BELOW Normal [facility] Comment on above: Result Comment: <100 mg/dl OPTIMAL 100 - 129 mg/dl NEAR OR ABOVE OPTIMAL 130 - 159 mg/dl BORDERLINE HIGH 160 - 189 mg/dl HIGH >190 mg/dl VERY HIGH Performed By: #### L IPID, BMP #### [facility] [address] [place] [address] Dr. Jag Waldrop Triglyceride [Mass/Vol] 106 mg/dL Normal <=150 [facility] Comment on above: Performed By: #### L IPID, BMP #### [facility] [address] [place] [address] Dr. Jag Waldrop VLDL CALC 21.2 mg/dL Normal [facility] Comment on above: Performed By: #### L IPID, BMP #### [facility] [address] [place] [address] Dr. Jag Waldrop PROF CHEM 8 (BAS METB)on Anion gap [Moles/Vol] 18.2 mmol/L Normal [facility] Comment on above: Performed By: #### L IPID, BMP #### [facility] [address] [place] [address] Dr. Jag Waldrop Calcium [Mass/Vol] 9.3 mg/dL Normal 8.5-10.1 [facility] Comment on above: Performed By: #### L IPID, BMP #### [facility] [address] [place] [address] Dr. Jag Waldrop Chloride [Moles/Vol] 111 mmol/L Critically high 98-107 [facility] Comment on above: Performed By: #### L IPID, BMP #### [facility] [address] [place] [address] Dr. Jag Waldrop CO2 [Moles/Vol] 19.9 mmol/L Critically low 21.0-32.0 [facility] Comment on above: Performed By: #### L IPID, BMP #### [facility] [address] [place] [address] Dr. Jag Waldrop Creatinine [Mass/Vol] 1.27 mg/dL Critically high 0.55-1.02 [facility] Comment on above: Performed By: #### L IPID, BMP #### [facility] [address] [place] [address] Dr. Jag Waldrop EGFR-AF KENYAN 54 mL/min/1.73m2 Critically low >=60 [facility] Comment on above: Performed By: #### L IPID, BMP #### [facility] [address] [place] [address] Dr. Jag Waldrop EGFR-NON AF KENYAN 44 mL/min/1.73m2 Critically low >=60 [facility] Comment on above: Performed By: #### L IPID, BMP #### [facility] [address] [place] [address] Dr. Jag Waldrop Glucose [Mass/Vol] 129 mg/dL Critically high 74-106 T [facility] Comment on above: Performed By: #### L IPID, BMP #### [facility] [address] [place] [address] Dr. Jag Waldrop Potassium [Moles/Vol] 6.1 mmol/L Critically high 3.5-5.1 [facility] Comment on above: Performed By: #### L IPID, BMP #### [facility] [address] [place] [address] Dr. Jag Waldrop Sodium [Moles/Vol] 142 mmol/L Normal 136-145 [facility] Comment on above: Performed By: #### L IPID, BMP #### [facility] [address] [place] [address] Dr. Jag Waldrop Urea nitrogen [Mass/Vol] 35.0 mg/dL Critically high 7.0-18.0 [facility] Comment on above: Performed By: #### L IPID, BMP #### [facility] [address] [place] [address] Dr. Jag Waldrop Urea nitrogen/Creatinine [Mass ratio] 27.6 mg/mg Normal [facility] Comment on above: Performed By: #### L IPID, BMP #### [facility] [address] [place] [address] Dr. Jag Waldrop VITAMIN B12on 01-23-2022 Cobalamin (Vitamin B12) [Mass/Vol] 267.0 pg/mL Normal 193.0-986.0 [facility] Comment on above: Performed By: #### L IPID, BMP #### [facility] [address] [place] [address] Dr. Jag Waldrop XR CSPINE 2_3 VIEWSon [...] KATHY LOBATO Date: 2022-01-12 09:39 Normal [facility] BNPon 12-21-2021 Natriuretic peptide B (Bld) [Mass/Vol] 283.0 pg/mL Normal <=900.0 [facility] Comment on above: Performed By: #### P OCGLUC #### [facility] [address] [place] [address] Dr. Jag Waldrop CBC AUTO DIFFon 12-21-2021 BASO # 0.1 103/ul Normal 0.0-0.1 [facility] Comment on above: Performed By: #### L IPID, BMP #### [facility] [address] [place] [address] Dr. Jag Waldrop Basophils/100 WBC (Bld) 0.8 % Normal 0.2-2.0 [facility] Comment on above: Performed By: #### L IPID, BMP #### [facility] [address] [place] [address] Dr. Jag Waldrop EO # 0.3 103/ul Normal 0.0-0.7 [facility] Comment on above: Performed By: #### L IPID, BMP #### [facility] [address] [place] [address] Dr. Jag Waldrop Eosinophils/100 WBC (Bld) 3.8 % Normal 0.9-7.0 [facility] Comment on above: Performed By: #### L IPID, BMP #### [facility] [address] [place] [address] Dr. Jag Waldrop Erythrocyte distribution width (RBC) [Ratio] 13.2 % Normal 11.0-15.0 [facility] Comment on above: Performed By: #### L IPID, BMP #### [facility] [address] [place] [address] Dr. Jag Waldrop Hematocrit (Bld) [Volume fraction] 34.8 % Critically low 36.0-48.0 [facility] Comment on above: Performed By: #### L IPID, BMP #### [facility] [address] [place] [address] Dr. Jag Waldrop Hemoglobin (Bld) [Mass/Vol] 10.6 g/dL Critically low 12.0-16.0 [facility] Comment on above: Performed By: #### L IPID, BMP #### [facility] [address] [place] [address] Dr. Jag Waldrop IG # 0.02 10e3/ul Normal 0.00-0.03 [facility] Comment on above: Performed By: #### L IPID, BMP #### [facility] [address] [place] [address] Dr. Jag Waldrop IG % 0.3 % Normal 0.0-0.5 [facility] Comment on above: Performed By: #### L IPID, BMP #### [facility] [address] [place] [address] Dr. Jag Waldrop LYMPH # 1.7 103/ul Normal 1.2-3.8 [facility] Comment on above: Performed By: #### L IPID, BMP #### [facility] [address] [place] [address] Dr. Jag Waldrop Lymphocytes/100 WBC (Bld) 23.8 % Normal 20.5-60.0 [facility] Comment on above: Performed By: #### L IPID, BMP #### [facility] [address] [place] [address] Dr. Jag Waldrop MANUAL DIFF REQ NO Normal [facility] Comment on above: Performed By: #### L IPID, BMP #### [facility] [address] [place] [address] Dr. Jag Waldrop MCH (RBC) [Entitic mass] 29.1 pg Normal 26.7-34.0 [facility] Comment on above: Performed By: #### L IPID, BMP #### [facility] [address] [place] [address] Dr. Jag Waldrop MCHC (RBC) [Mass/Vol] 30.5 g/dL Normal 29.9-35.2 [facility] Comment on above: Performed By: #### L IPID, BMP #### [facility] [address] [place] [address] Dr. Jag Waldrop MCV (RBC) [Entitic vol] 95.6 fL Normal 81.0-99.0 [facility] Comment on above: Performed By: #### L IPID, BMP #### [facility] [address] [place] [address] Dr. Jag Waldrop MONO # 0.7 103/ul Normal 0.3-0.8 [facility] Comment on above: Performed By: #### L IPID, BMP #### [facility] [address] [place] [address] Dr. Jag Waldrop Monocytes/100 WBC (Bld) 9.3 % Normal 1.7-12.0 [facility] Comment on above: Performed By: #### L IPID, BMP #### [facility] [address] [place] [address] Dr. Jag Waldrop NEUT # 4.4 103/ul Normal 1.4-6.5 [facility] Comment on above: Performed By: #### L IPID, BMP #### [facility] [address] [place] [address] Dr. Jag Waldrop Neutrophils/100 WBC (Bld) 62.0 % Normal 43.0-75.0 [facility] Comment on above: Performed By: #### L IPID, BMP #### [facility] [address] [place] [address] Dr. Jag Waldrop Platelet mean volume (Bld) [Entitic vol] 11.5 fL Normal 9.5-13.5 [facility] Comment on above: Performed By: #### L IPID, BMP #### [facility] [address] [address] [address] Jag Waldrop PLT 235 103/ul Normal 150-450 [facility] Comment on above: Performed By: #### L IPID, BMP #### [facility] [address] [address] [address] Jag Waldrop RBC 3.64 106/ul Critically low 4.20-5.40 [facility] Comment on above: Performed By: #### L IPID, BMP #### [facility] [address] [address] [address] Jag Waldrop WBC 7.1 103/ul Normal 4.0-11.0 [facility] Comment on above: Performed By: #### L IPID, BMP #### [facility] [address] [place] [address] Dr. Jag Waldrop CRPon 12-21-2021 CRP 1.1 mg/dL Critically high <=1.0 [facility] Comment on above: Performed By: #### B MP #### [facility] [address] [address] [address] Jag Waldrop Covid-19 PCR ([facility])on SARS-CoV-2 (COVID-19) RNA PRINCE+probe Ql (Unsp spec) Not detected Normal NOT DETECTED [facility] Comment on above: Result Comment: This test is not yet approved or cleared by the [place] FDA. When there are no FDA-approved or cleared tests available, and other criteria are met, FDA can make tests available under an emergency access mechanism called an Emergency Use Authorization (EUA). The EUA for this test is supported by the Marketing And Promotions Manager of Health and Human Service's (HHS's) declaration [...] Performed By: #### L IPID, BMP #### [facility] [address] [place] [address] Dr. Jag Waldrop PROF CHEM 8 (BAS METB)on Anion gap [Moles/Vol] 13.3 mmol/L Normal [facility] Comment on above: Performed By: #### B MP #### [facility] [address] [place] [address] Dr. Jag Waldrop Calcium [Mass/Vol] 8.7 mg/dL Normal 8.5-10.1 [facility] Comment on above: Performed By: #### B MP #### [facility] [address] [place] [address] Dr. Jag Waldrop Chloride [Moles/Vol] 107 mmol/L Normal 98-107 [facility] Comment on above: Performed By: #### B MP #### [facility] [address] [place] [address] Dr. Jag Waldrop CO2 [Moles/Vol] 23.2 mmol/L Normal 21.0-32.0 [facility] Comment on above: Performed By: #### B MP #### [facility] [address] [place] [address] Dr. Jag Waldrop Creatinine [Mass/Vol] 1.55 mg/dL Critically high 0.55-1.02 [facility] Comment on above: Performed By: #### B MP #### [facility] [address] [place] [address] Dr. Jag Waldrop EGFR-AF KENYAN 43 mL/min/1.73m2 Critically low >=60 [facility] Comment on above: Performed By: #### B MP #### [facility] [address] [place] [address] Dr. Jag Waldrop EGFR-NON AF KENYAN 35 mL/min/1.73m2 Critically low >=60 [facility] Comment on above: Performed By: #### B MP #### [facility] [address] [address] [address] Jag Waldrop Glucose [Mass/Vol] 123 mg/dL Critically high 74-106 T [facility] Comment on above: Performed By: #### B MP #### [facility] [address] [address] [address] Jag Waldrop Potassium [Moles/Vol] 4.5 mmol/L Normal 3.5-5.1 [facility] Comment on above: Performed By: #### B MP #### [facility] [address] [place] [address] Dr. Jag Waldrop Sodium [Moles/Vol] 139 mmol/L Normal 136-145 [facility] Comment on above: Performed By: #### B MP #### [facility] [address] [place] [address] Dr. Jag Waldrop Urea nitrogen [Mass/Vol] 36.0 mg/dL Critically high 7.0-18.0 [facility] Comment on above: Performed By: #### B MP #### [facility] [address] [place] [address] Dr. Jag Waldrop Urea nitrogen/Creatinine [Mass ratio] 23.2 mg/mg Normal [facility] Comment on above: Performed By: #### B MP #### [facility] [address] [place] [address] Dr. Jag Waldrop SED RATE [facility] 2021 SED RATE 26 mm/hr Normal <=30 [facility] Comment on above: Performed By: #### S EDR #### [facility] [address] [place] [address] Dr. Jag Waldrop XR CHEST 2 Von [...] cardiomegaly, clear lungs Electronically authenticated by: ALEX Baugh: 2021-12-21 18:35 Normal [facility] OVA AND PARASITE EXAMINATION on 12-06-2021 Ova + Parasite Exam Final report Normal [facility] Comment on above: Result Comment: Thes e results were obtained using wet preparation(s) and trichrome stained smear. This test does not include testing for Cryptosporidium parvum, Cyclospora, or Microsporidia. Performed By: #### L IPID, BMP #### [facility] [address] [place] [address] Dr. Jag Waldrop Result 1 Comment Normal [facility] Comment on above: Result Comment: No o va, cysts, or parasites seen. . One negative specimen does not rule out the possibility of a parasitic infection. Performed By: #### L IPID, BMP #### [facility] [address] [place] [address] Dr. Jag Waldrop STOOL CULTUREon 12-05-2021 Campylobacter Culture Final report Normal [facility] Comment on above: Performed By: #### C XSTOOL #### [facility] [address] [place] [address] Dr. Jag Waldrop E coli Shiga Toxin EIA Negative Normal Negative [facility] Comment on above: Performed By: #### C XSTOOL #### [facility] [address] [place] [address] Dr. Jag Waldrop Result 1 Comment Normal [facility] Comment on above: Result Comment: No S almonella or Shigella recovered. Performed By: #### C XSTOOL #### [facility] [address] [place] [address] Dr. Jag Waldrop Result Comment: No C ampylobacter species isolated. Salmonella/Shigella Screen Final report Normal [facility] Comment on above: Performed By: #### C XSTOOL #### [facility] [address] [place] [address] Dr. Jag Waldrop GI PANEL (PCR)on 11-30-2021 Adenovirus F 40/41 Not detected Normal NOT DETECTED [facility] Comment on above: Performed By: #### E RUR #### [facility] [address] [place] [address] Dr. Jag Waldrop Astrovirus Not detected Normal NOT DETECTED [facility] Comment on above: Performed By: #### E RUR #### [facility] [address] [place] [address] Dr. Jag Waldrop C. Diff toxin A/B Detected Critically abnormal NOT DETECTED [facility] Comment on above: Performed By: #### E RUR #### [facility] [address] [place] [address] Dr. Jag Waldrop Campylobacter Not detected Normal NOT DETECTED [facility] Comment on above: Performed By: #### E RUR #### [facility] [address] [place] [address] Dr. Jag Waldrop Cryptosporidium Not detected Normal NOT DETECTED [facility] Comment on above: Performed By: #### E RUR #### [facility] [address] [place] [address] Dr. Jag Waldrop Cyclos. Cayetanensis Not detected Normal NOT DETECTED [facility] Comment on above: Performed By: #### E RUR #### [facility] [address] [place] [address] Dr. Jag Waldrop E. Coli O157 Not Applicable Normal Not Applicable [facility] Comment on above: Performed By: #### E RUR #### [facility] [address] [place] [address] Dr. Jag Waldrop E. histolytica Not detected Normal NOT DETECTED [facility] Comment on above: Performed By: #### E RUR #### [facility] [address] [place] [address] Dr. Jag Waldrop EAEC Not detected Normal NOT DETECTED [facility] Comment on above: Performed By: #### E RUR #### [facility] [address] [place] [address] Dr. Jag Waldrop EIEC Not detected Normal NOT DETECTED [facility] Comment on above: Performed By: #### E RUR #### [facility] [address] [place] [address] Dr. Jag Waldrop EPEC Not detected Normal NOT DETECTED [facility] Comment on above: Performed By: #### E RUR #### [facility] [address] [place] [address] Dr. Jag Waldrop ETEC Not detected Normal NOT DETECTED [facility] Comment on above: Performed By: #### E RUR #### [facility] [address] [address] [address] Jag Zuniga. Lamblia Not detected Normal NOT DETECTED [facility] Comment on above: Performed By: #### E RUR #### [facility] [address] [place] [address] Dr. Jag TANG CONTROLS PASSED Normal [facility] Comment on above: Performed By: #### E RUR #### [facility] [address] [place] [address] Dr. Jag TEJEDA HEADER GI PANEL BACTERIA Normal T [facility] Comment on above: Performed By: #### E RUR #### [facility] [address] [place] [address] Dr. Jag SANCHEZ ECOLI GI PANEL DIARRHEAGEN IC E.COLI / SHIGELLA Normal [facility] Comment on above: Performed By: #### E RUR #### [facility] [address] [place] [address] Dr. Jag SANCHEZ INFO SEE BELOW Normal [facility] Comment on above: Result Comment: EAEC - Enteroaggregative E. Coli EPEC- Enteropathogenic E. Coli ETEC- Enterotoxigenic E. Coli lt/st STEC- Shigella-like toxin-producing E. Coli stx1/stx2 EIEC- Shigella/Enteroinvasive E. Coli Performed By: #### E RUR #### [facility] [address] [place] [address] Dr. Jag SANCHEZ PARASITES GI PANEL PARASITES Normal [facility] Comment on above: Performed By: #### E RUR #### [facility] [address] [place] [address] Dr. Jag SANCHEZ VIRUS GI PANEL VIRUSES Normal [facility] Comment on above: Performed By: #### E RUR #### [facility] [address] [place] [address] Dr. Jag Waldrop Norovirus GI/GII Not detected Normal NOT DETECTED [facility] Comment on above: Performed By: #### E RUR #### [facility] [address] [place] [address] Dr. Jag Waldrop P. Shigelloides Not detected Normal NOT DETECTED [facility] Comment on above: Performed By: #### E RUR #### [facility] [address] [place] [address] Dr. Jag Waldrop Rotavirus A Not detected Normal NOT DETECTED [facility] Comment on above: Performed By: #### E RUR #### [facility] [address] [place] [address] Dr. Jag Waldrop Salmonella Not detected Normal NOT DETECTED [facility] Comment on above: Performed By: #### E RUR #### [facility] [address] [place] [address] Dr. Jag Waldrop Sapovirus Not detected Normal NOT DETECTED [facility] Comment on above: Performed By: #### E RUR #### [facility] [address] [place] [address] Dr. Jag Waldrop STEC Not detected Normal NOT DETECTED [facility] Comment on above: Performed By: #### E RUR #### [facility] [address] [place] [address] Dr. Jag Waldrop Vibrio Not detected Normal NOT DETECTED [facility] Comment on above: Performed By: #### E RUR #### [facility] [address] [place] [address] Dr. Jag Waldrop Vibrio Cholera Not detected Normal NOT DETECTED [facility] Comment on above: Performed By: #### E RUR #### [facility] [address] [place] [address] Dr. Jag Waldrop Y. Enterocolitica Not detected Normal NOT DETECTED [facility] Comment on above: Performed By: #### E RUR #### [facility] [address] [place] [address] Dr. Jag Waldrop OCC BLD IMMUNO SCREENon 11-14 OCCULT BLOOD Negative Normal NEGATIVE [facility] Comment on above: Performed By: #### L IPID, BMP #### [facility] [address] [address] [address] Jag Waldrop PROF CHEM 8 (BAS METB)on Anion gap [Moles/Vol] 15.5 mmol/L Normal [facility] Comment on above: Performed By: #### P OCGLUC #### [facility] [address] [address] [address] Jag Waldrop Calcium [Mass/Vol] 9.1 mg/dL Normal 8.5-10.1 [facility] Comment on above: Performed By: #### P OCGLUC #### [facility] [address] [place] [address] Dr. Jag Waldrop Chloride [Moles/Vol] 106 mmol/L Normal 98-107 [facility] Comment on above: Performed By: #### P OCGLUC #### [facility] [address] [address] [address] Jag Waldrop CO2 [Moles/Vol] 25.4 mmol/L Normal 21.0-32.0 [facility] Comment on above: Performed By: #### P OCGLUC #### [facility] [address] [address] [address] Jag Waldrop Creatinine [Mass/Vol] 1.18 mg/dL Critically high 0.55-1.02 [facility] Comment on above: Performed By: #### P OCGLUC #### [facility] [address] [address] [address] Jag Waldrop EGFR-AF KENYAN 59 mL/min/1.73m2 Critically low >=60 [facility] Comment on above: Performed By: #### P OCGLUC #### [facility] [address] [place] [address] Dr. Jag Waldrop EGFR-NON AF KENYAN 48 mL/min/1.73m2 Critically low >=60 [facility] Comment on above: Performed By: #### P OCGLUC #### [facility] [address] [place] [address] Dr. Jag Waldrop Glucose [Mass/Vol] 141 mg/dL Critically high 74-106 T [facility] Comment on above: Performed By: #### P OCGLUC #### [facility] [address] [place] [address] Dr. Jag Waldrop Potassium [Moles/Vol] 3.9 mmol/L Normal 3.5-5.1 [facility] Comment on above: Performed By: #### P OCGLUC #### [facility] [address] [place] [address] Dr. Jag Waldrop Sodium [Moles/Vol] 143 mmol/L Normal 136-145 [facility] Comment on above: Performed By: #### P OCGLUC #### [facility] [address] [place] [address] Dr. Jag Waldrop Urea nitrogen [Mass/Vol] 22.0 mg/dL Critically high 7.0-18.0 [facility] Comment on above: Performed By: #### P OCGLUC #### [facility] [address] [place] [address] Dr. Jag Waldrop Urea nitrogen/Creatinine [Mass ratio] 18.6 mg/mg Normal [facility] Comment on above: Performed By: #### P OCGLUC #### [facility] [address] [place] [address] Dr. Jag Waldrop XR KUB 1 VIEWon [...] ALEX ALLEN Date: 2021-10-29 09:01 Normal [facility] CULTURE URINEon 10-28-2021 CULTURE URINE Culture Observations : LIGHT GROWTH OF MIXED GENITAL SANDEE. NO POTENTIAL PATHOGENS SEEN. Normal [facility] Comment on above: Performed By: #### E RUR #### [facility] [address] [address] [address] Jag Waldrop GLYCOHEMOGLOBIN A1Con 2021 ADA RECOMMENDATION SEE BELOW Normal [facility] Comment on above: Result Comment: ADA RECOMMENDED LIMIT 4.0 - 6.0 ADA THERAPEUTIC TARGET < 7.0 ACTION SUGGESTED > 7.0 Performed By: #### E RUR #### [facility] [address] [address] [address] Jag Waldrop Glucose [Mass/Vol] 157 mg/dL Normal [facility] Comment on above: Performed By: #### E RUR #### [facility] [address] [place] [address] Dr. Jag Waldrop HbA1c (Bld) [Mass fraction] 7.1 % Critically high 4.5-6.2 [facility] Comment on above: Performed By: #### E RUR #### [facility] [address] [place] [address] Dr. Jag Waldrop LIPID PROFILEon 10-28-2021 CHOL-HDL RATIO NORM SEE BELOW Normal [facility] Comment on above: Result Comment: 3.3 - 4.4 LOW RISK 4.4 - 7.1 AVERAGE RISK 7.1 - 11.0 MODERATE RISK >11.0 HIGH RISK Performed By: #### P OCGLUC #### [facility] [address] [place] [address] Dr. Jag Waldrop Cholesterol [Mass/Vol] 150 mg/dL Normal <=200 [facility] Comment on above: Performed By: #### P OCGLUC #### [facility] [address] [place] [address] Dr. Jag Waldrop Cholesterol in HDL [Mass/Vol] 39 mg/dL Critically low 40-60 [facility] Comment on above: Performed By: #### P OCGLUC #### [facility] [address] [place] [address] Dr. Jag Waldrop Cholesterol in LDL [Mass/Vol] 82.6 mg/dL Normal [facility] Comment on above: Performed By: #### P OCGLUC #### [facility] [address] [place] [address] Dr. Jag Waldrop Cholesterol.total/Chol esterol in HDL [Mass ratio] 3.8 {ratio} Normal [facility] Comment on above: Performed By: #### P OCGLUC #### [facility] [address] [address] [address] Jag Waldrop HDL NORMAL > or = 60 mg/dl - LO W CARDIOVASCULAR RISK <40 mg/dl - HIGH CARDIOVASCULAR RISK Normal [facility] Comment on above: Performed By: #### P OCGLUC #### [facility] [address] [address] [address] Jag Waldrop LDL CALC NORMAL SEE BELOW Normal [facility] Comment on above: Result Comment: <100 mg/dl OPTIMAL 100 - 129 mg/dl NEAR OR ABOVE OPTIMAL 130 - 159 mg/dl BORDERLINE HIGH 160 - 189 mg/dl HIGH >190 mg/dl VERY HIGH Performed By: #### P OCGLUC #### [facility] [address] [address] [address] Jag Waldrop Triglyceride [Mass/Vol] 142 mg/dL Normal <=150 [facility] Comment on above: Performed By: #### P OCGLUC #### [facility] [address] [address] [address] Jag Waldrop VLDL CALC 28.4 mg/dL Normal [facility] Comment on above: Performed By: #### P OCGLUC #### [facility] [address] [address] [address] Jag Waldrop PROF CHEM 8 (BAS METB)on Anion gap [Moles/Vol] 16.0 mmol/L Normal [facility] Comment on above: Performed By: #### P OCGLUC #### [facility] [address] [address] [address] Jag Waldrop Calcium [Mass/Vol] 8.7 mg/dL Normal 8.5-10.1 [facility] Comment on above: Performed By: #### P OCGLUC #### [facility] [address] [address] [address] Jag Waldrop Chloride [Moles/Vol] 108 mmol/L Critically high 98-107 [facility] Comment on above: Performed By: #### P OCGLUC #### [facility] [address] [address] [address] Jag Waldrop CO2 [Moles/Vol] 22.1 mmol/L Normal 21.0-32.0 [facility] Comment on above: Performed By: #### P OCGLUC #### [facility] [address] [address] [address] Jag Waldrop Creatinine [Mass/Vol] 1.72 mg/dL Critically high 0.55-1.02 [facility] Comment on above: Performed By: #### P OCGLUC #### [facility] [address] [address] [address] Jag Waldrop EGFR-AF KENYAN 38 mL/min/1.73m2 Critically low >=60 [facility] Comment on above: Performed By: #### P OCGLUC #### [facility] [address] [address] [address] Jag Waldrop EGFR-NON AF KENYAN 31 mL/min/1.73m2 Critically low >=60 [facility] Comment on above: Performed By: #### P OCGLUC #### [facility] [address] [address] [address] Jag Waldrop Glucose [Mass/Vol] 144 mg/dL Critically high 74-106 [facility] Comment on above: Performed By: #### P OCGLUC #### [facility] [address] [address] [address] Jag Waldrop Potassium [Moles/Vol] 5.1 mmol/L Normal 3.5-5.1 [facility] Comment on above: Performed By: #### P OCGLUC #### [facility] [address] [address] [address] Jag Waldrop Sodium [Moles/Vol] 141 mmol/L Normal 136-145 [facility] Comment on above: Performed By: #### P OCGLUC #### [facility] [address] [address] [address] Jag Waldrop Urea nitrogen [Mass/Vol] 41.0 mg/dL Critically high 7.0-18.0 [facility] Comment on above: Performed By: #### P OCGLUC #### [facility] [address] [address] [address] Jag Waldrop Urea nitrogen/Creatinine [Mass ratio] 23.8 mg/mg Normal [facility] Comment on above: Performed By: #### P OCGLUC #### [facility] [address] [place] [address] Dr. Jag Waldrop UA (CLEAN/CATCH) REGIONAL CLIMATE CHANGE ANALYST/MICRO I F IND.on 10-28-2021 Bilirubin Ql (U) Negative Normal NEGATIVE [facility] Comment on above: Performed By: #### L IPID, BMP #### [facility] [address] [place] [address] Dr. Jag Waldrop Clarity (U) SL CLOUDY Abnormal CLEAR [facility] Comment on above: Performed By: #### L IPID, BMP #### [facility] [address] [place] [address] Dr. Jag Waldrop Color (U) LT. YELLOW Normal YELLOW [facility] Comment on above: Performed By: #### L IPID, BMP #### [facility] [address] [place] [address] Dr. Jag Waldrop Glucose Ql (U) Negative Normal NEGATIVE [facility] Comment on above: Performed By: #### L IPID, BMP #### [facility] [address] [place] [address] Dr. Jag Waldrop Hemoglobin Ql (U) TRACE-INTACT Abnormal NEGATIVE [facility] Comment on above: Performed By: #### L IPID, BMP #### [facility] [address] [place] [address] Dr. Jag Waldrop Ketones Ql (U) Negative Normal NEGATIVE [facility] Comment on above: Performed By: #### L IPID, BMP #### [facility] [address] [place] [address] Dr. Jag Waldrop LEUKOCYTES SMALL Abnormal NEGATIVE [facility] Comment on above: Performed By: #### L IPID, BMP #### [facility] [address] [place] [address] Dr. Jag Waldrop Nitrite Ql (U) Negative Normal NEGATIVE [facility] Comment on above: Performed By: #### L IPID, BMP #### [facility] [address] [place] [address] Dr. Jag Waldrop pH (U) 5.5 [pH] Normal 5-9 [facility] Comment on above: Performed By: #### L IPID, BMP #### [facility] [address] [place] [address] Dr. Jag Waldrop SPEC GRAVITY 1.020 Normal 1.005-<=1.0 25 [facility] Comment on above: Performed By: #### L IPID, BMP #### [facility] [address] [place] [address] Dr. Jag Waldrop UA PROTEIN Negative Normal NEGATIVE/ TRACE [facility] Comment on above: Performed By: #### L IPID, BMP #### [facility] [address] [place] [address] Dr. Jag Waldrop UR MICRO IND INDICATED Normal [facility] Comment on above: Performed By: #### L IPID, BMP #### [facility] [address] [place] [address] Dr. Jag Waldrop Urobilinogen Qn (U) 0.2 {Chris'U}/dL Normal 0.2 - 1. 0 [facility] Comment on above: Performed By: #### L IPID, BMP #### [facility] [address] [place] [address] Dr. Jag Waldrop URINE MICROSCOPIC ONLYon BACTERIA TRACE Abnormal NONE SEEN The [facility] Comment on above: Performed By: #### L IPID, BMP #### [facility] [address] [place] [address] Dr. Jag Waldrop Bacteria identified Cx Nom (U) INDICATED Normal [facility] Comment on above: Performed By: #### L IPID, BMP #### [facility] [address] [place] [address] Dr. Jag Waldrop CAST NONE SEEN Normal NONE SEEN The [facility] Comment on above: Performed By: #### L IPID, BMP #### [facility] [address] [place] [address] Dr. Jag Waldrop Crystals LM Nom (Urine sed) NONE SEEN Normal NONE SEEN The [facility] Comment on above: Performed By: #### L IPID, BMP #### [facility] [address] [place] [address] Dr. Jag Waldrop Epithelial cells LM Ql (Urine sed) RARE Normal NONE SEEN /RARE [facility] Comment on above: Performed By: #### L IPID, BMP #### [facility] [address] [place] [address] Dr. Jag Waldrop MUCOUS TRACE Abnormal NONE SEEN The [facility] Comment on above: Performed By: #### L IPID, BMP #### [facility] [address] [place] [address] Dr. Jag Waldrop RBC 0-2 Normal 0-2 [facility] Comment on above: Performed By: #### L IPID, BMP #### [facility] [address] [place] [address] Dr. Jag Waldrop WBC 2-5 Abnormal NONE SEEN The [facility] Comment on above: Performed By: #### L IPID, BMP #### [facility] [address] [place] [address] Dr. Jag Waldrop BNPon 10-02-2021 Natriuretic peptide B (Bld) [Mass/Vol] 52.0 pg/mL Normal <=900.0 [facility] Comment on above: Performed By: #### L IPID, BMP #### [facility] [address] [place] [address] Dr. Jag Waldrop CBC AUTO DIFFon 10-02-2021 BASO # 0.1 103/ul Normal 0.0-0.1 [facility] Comment on above: Performed By: #### P OCGLUC #### [facility] [address] [place] [address] Dr. Jag Waldrop Basophils/100 WBC (Bld) 0.8 % Normal 0.2-2.0 [facility] Comment on above: Performed By: #### P OCGLUC #### [facility] [address] [place] [address] Dr. Jag Waldrop EO # 0.2 103/ul Normal 0.0-0.7 [facility] Comment on above: Performed By: #### P OCGLUC #### [facility] [address] [address] [address] Jag Waldrop Eosinophils/100 WBC (Bld) 3.0 % Normal 0.9-7.0 [facility] Comment on above: Performed By: #### P OCGLUC #### [facility] [address] [address] [address] Jag Waldrop Erythrocyte distribution width (RBC) [Ratio] 14.2 % Normal 11.0-15.0 [facility] Comment on above: Performed By: #### P OCGLUC #### [facility] [address] [place] [address] Dr. Jag Waldrop Hematocrit (Bld) [Volume fraction] 35.9 % Critically low 36.0-48.0 [facility] Comment on above: Performed By: #### P OCGLUC #### [facility] [address] [place] [address] Dr. Jag Waldrop Hemoglobin (Bld) [Mass/Vol] 11.0 g/dL Critically low 12.0-16.0 [facility] Comment on above: Performed By: #### P OCGLUC #### [facility] [address] [place] [address] Dr. Jag Waldrop IG # 0.03 10e3/ul Normal 0.00-0.03 [facility] Comment on above: Performed By: #### P OCGLUC #### [facility] [address] [place] [address] Dr. Jag Waldrop IG % 0.4 % Normal 0.0-0.5 [facility] Comment on above: Performed By: #### P OCGLUC #### [facility] [address] [place] [address] Dr. Jag Waldrop LYMPH # 2.8 103/ul Normal 1.2-3.8 [facility] Comment on above: Performed By: #### P OCGLUC #### [facility] [address] [place] [address] Dr. Jag Waldrop Lymphocytes/100 WBC (Bld) 37.9 % Normal 20.5-60.0 [facility] Comment on above: Performed By: #### P OCGLUC #### [facility] [address] [place] [address] Dr. Jag Waldrop MANUAL DIFF REQ NO Normal [facility] Comment on above: Performed By: #### P OCGLUC #### [facility] [address] [place] [address] Dr. Jag Waldrop MCH (RBC) [Entitic mass] 28.7 pg Normal 26.7-34.0 [facility] Comment on above: Performed By: #### P OCGLUC #### [facility] [address] [place] [address] Dr. Jag Waldrop MCHC (RBC) [Mass/Vol] 30.6 g/dL Normal 29.9-35.2 [facility] Comment on above: Performed By: #### P OCGLUC #### [facility] [address] [place] [address] Dr. Jag Waldrop MCV (RBC) [Entitic vol] 93.7 fL Normal 81.0-99.0 [facility] Comment on above: Performed By: #### P OCGLUC #### [facility] [address] [place] [address] Dr. Jag Waldrop MONO # 0.5 103/ul Normal 0.3-0.8 [facility] Comment on above: Performed By: #### P OCGLUC #### [facility] [address] [place] [address] Dr. Jag Waldrop Monocytes/100 WBC (Bld) 7.4 % Normal 1.7-12.0 [facility] Comment on above: Performed By: #### P OCGLUC #### [facility] [address] [place] [address] Dr. Jag Waldrop NEUT # 3.7 103/ul Normal 1.4-6.5 [facility] Comment on above: Performed By: #### P OCGLUC #### [facility] [address] [place] [address] Dr. Jag Waldrop Neutrophils/100 WBC (Bld) 50.5 % Normal 43.0-75.0 [facility] Comment on above: Performed By: #### P OCGLUC #### [facility] [address] [address] [address] Jag Waldrop Platelet mean volume (Bld) [Entitic vol] 10.2 fL Normal 9.5-13.5 [facility] Comment on above: Performed By: #### P OCGLUC #### [facility] [address] [place] [address] Dr. Jag Waldrop PLT 261 103/ul Normal 150-450 [facility] Comment on above: Performed By: #### P OCGLUC #### [facility] [address] [place] [address] Dr. Jag Waldrop RBC 3.83 106/ul Critically low 4.20-5.40 [facility] Comment on above: Performed By: #### P OCGLUC #### [facility] [address] [place] [address] Dr. Jag Waldrop WBC 7.3 103/ul Normal 4.0-11.0 [facility] Comment on above: Performed By: #### P OCGLUC #### [facility] [address] [place] [address] Dr. Jag Waldrop POINT OF CARE GLUCOSEon 09-14 Glucose [Mass/Vol] 156 mg/dL Critically high 74-106 [facility] Comment on above: Performed By: #### P OCGLUC #### [facility] [address] [place] [address] Dr. Jag Waldrop Glucose [Mass/Vol] 304 mg/dL Critically high 74-106 [facility] Comment on above: Performed By: #### P OCGLUC #### [facility] [address] [place] [address] Dr. Jag Waldrop Glucose [Mass/Vol] 77 mg/dL Normal 74-106 [facility] Comment on above: Performed By: #### E RUR #### [facility] [address] [place] [address] Dr. Jag Waldrop Glucose [Mass/Vol] 136 mg/dL Critically high 74-106 T [facility] Comment on above: Performed By: #### E RUR #### [facility] [address] [address] [address] Jag Waldrop Glucose [Mass/Vol] 73 mg/dL Critically low 74-106 [facility] Comment on above: Performed By: #### E RUR #### [facility] [address] [address] [address] Jag Waldrop PROF CHEM 8 (BAS METB)on Anion gap [Moles/Vol] 15.5 mmol/L Normal [facility] Comment on above: Performed By: #### P OCGLUC #### [facility] [address] [place] [address] Dr. Jag Waldrop Calcium [Mass/Vol] 8.3 mg/dL Critically low 8.5-10.1 [facility] Comment on above: Performed By: #### P OCGLUC #### [facility] [address] [place] [address] Dr. Jag Waldrop Chloride [Moles/Vol] 108 mmol/L Critically high 98-107 [facility] Comment on above: Performed By: #### P OCGLUC #### [facility] [address] [place] [address] Dr. Jag Waldrop CO2 [Moles/Vol] 18.9 mmol/L Critically low 21.0-32.0 [facility] Comment on above: Performed By: #### P OCGLUC #### [facility] [address] [place] [address] Dr. Jag Waldrop Creatinine [Mass/Vol] 1.43 mg/dL Critically high 0.55-1.02 [facility] Comment on above: Performed By: #### P OCGLUC #### [facility] [address] [place] [address] Dr. Jag Waldrop EGFR-AF KENYAN 47 mL/min/1.73m2 Critically low >=60 [facility] Comment on above: Performed By: #### P OCGLUC #### [facility] [address] [address] [address] Jag Waldrop EGFR-NON AF KENYAN 39 mL/min/1.73m2 Critically low >=60 [facility] Comment on above: Performed By: #### P OCGLUC #### [facility] [address] [address] [address] Jag Waldrop Glucose [Mass/Vol] 269 mg/dL Critically high 74-106 T [facility] Comment on above: Performed By: #### P OCGLUC #### [facility] [address] [address] [address] Jag Waldrop Potassium [Moles/Vol] 5.4 mmol/L Critically high 3.5-5.1 [facility] Comment on above: Performed By: #### P OCGLUC #### [facility] [address] [address] [address] Jag Waldrop Sodium [Moles/Vol] 137 mmol/L Normal 136-145 [facility] Comment on above: Performed By: #### P OCGLUC #### [facility] [address] [address] [address] Jag Waldrop Urea nitrogen [Mass/Vol] 40.0 mg/dL Critically high 7.0-18.0 [facility] Comment on above: Performed By: #### P OCGLUC #### [facility] [address] [address] [address] Jag Waldrop Urea nitrogen/Creatinine [Mass ratio] 28.0 mg/mg Normal [facility] Comment on above: Performed By: #### P OCGLUC #### [facility] [address] [address] [address] Jag Waldrop Anion gap [Moles/Vol] 14.0 mmol/L Normal [facility] Comment on above: Performed By: #### E RUR #### [facility] [address] [address] [address] Jag Waldrop Calcium [Mass/Vol] 8.9 mg/dL Normal 8.5-10.1 [facility] Comment on above: Performed By: #### E RUR #### [facility] [address] [address] [address] Jag Waldrop Chloride [Moles/Vol] 110 mmol/L Critically high 98-107 [facility] Comment on above: Performed By: #### E RUR #### [facility] [address] [address] [address] Jag Waldrop CO2 [Moles/Vol] 21.1 mmol/L Normal 21.0-32.0 [facility] Comment on above: Performed By: #### E RUR #### [facility] [address] [address] [address] Jag Waldrop Creatinine [Mass/Vol] 1.32 mg/dL Critically high 0.55-1.02 [facility] Comment on above: Performed By: #### E RUR #### [facility] [address] [place] [address] Dr. Jag Waldrop EGFR-AF KENYAN 52 mL/min/1.73m2 Critically low >=60 [facility] Comment on above: Performed By: #### E RUR #### [facility] [address] [place] [address] Dr. Jag Waldrop EGFR-NON AF KENYAN 43 mL/min/1.73m2 Critically low >=60 [facility] Comment on above: Performed By: #### E RUR #### [facility] [address] [address] [address] Jag Waldrop Glucose [Mass/Vol] 79 mg/dL Normal 74-106 [facility] Comment on above: Performed By: #### E RUR #### [facility] [address] [address] [address] Jag Waldrop Potassium [Moles/Vol] 6.1 mmol/L Critically high 3.5-5.1 [facility] Comment on above: Result Comment: Test Repeated. Critical Value Verified Performed By: #### E RUR #### [facility] [address] [place] [address] Dr. Jag Waldrop Sodium [Moles/Vol] 140 mmol/L Normal 136-145 [facility] Comment on above: Performed By: #### E RUR #### [facility] [address] [place], [place] [address] Dr. Jag Waldrop Urea nitrogen [Mass/Vol] 45.0 mg/dL Critically high 7.0-18.0 [facility] Comment on above: Performed By: #### E RUR #### [facility] [address] [place], [place] [address] Dr. Jag Waldrop Urea nitrogen/Creatinine [Mass ratio] 34.1 mg/mg Normal [facility] Comment on above: Performed By: #### E RUR #### [facility] [address] [address] [address] Jag Waldrop BASIC METABOLIC PANELon 08-14 Calcium [Mass/Vol] 8.9 mg/dL Normal 8.6-10.3 [facility] Comment on above: Order Comment: No: D o not add to previous draw Performed By: #### 5 [id number], [id number] #### [facility] [address] [place] [address], [place] Chloride [Moles/Vol] 105 mmol/L Normal 98-107 [facility] Comment on above: Order Comment: No: D o not add to previous draw Performed By: #### 5 6101, [id number] #### [facility] [address] [place] [address], [place] CO2 [Moles/Vol] 26 mmol/L Normal 21-31 [facility] Comment on above: Order Comment: No: D o not add to previous draw Performed By: #### 5 [id number], 80619 #### [facility] [address] [place] [address], [place] Creatinine [Mass/Vol] 0.99 mg/dL Normal 0.60-1.20 [facility] Comment on above: Order Comment: No: D o not add to previous draw Performed By: #### 5 6101, 21749 #### [facility] [address] [place] [address], [place] GFR/1.73 sq M predicted among blacks MDRD (S/P/Bld) [Vol rate/Area] mL/min/{1.73_m2} Normal >60 [facility] Comment on above: Order Comment: No: D o not add to previous draw Performed By: #### 5 610, 38855 #### [facility] [address] [place] [address], [place] GFR/1.73 sq M predicted among non-blacks MDRD (S/P/Bld) [Vol rate/Area] mL/min/{1.73_m2} Normal >60 [facility] Comment on above: Order Comment: No: D o not add to previous draw Performed By: #### 5 610, 98560 #### [facility] [address] [place] [address], [place] Glucose [Mass/Vol] 145 mg/dL High 70-100 [facility] Comment on above: Order Comment: No: D o not add to previous draw Performed By: #### 5 610, 72840 #### [facility] [address] [place] [address], [place] Potassium [Moles/Vol] 3.7 mmol/L Normal 3.5-5.1 [facility] Comment on above: Order Comment: No: D o not add to previous draw Performed By: #### 5 610, 96591 #### [facility] [address] [place] [address], [place] Sodium [Moles/Vol] 139 mmol/L Normal 136-145 [facility] Comment on above: Order Comment: No: D o not add to previous draw Performed By: #### 5 610, 96773 #### [facility] [address] [place] [address], [place] Urea nitrogen [Mass/Vol] 26 mg/dL High 7-25 [facility] Comment on above: Order Comment: No: D o not add to previous draw Performed By: #### 5 610, 91416 #### [facility] [address] [place] [address], [facility] CBC W/DIFFon 08-25-2018 ABS BASOPHILS 0.0 10*3/uL Normal 0.0-0.2 [facility] Comment on above: Order Comment: No: D o not add to previous draw Performed By: #### 5 610, 93807 #### [facility] [address] [facility] [place] [address], [facility] ABS IMM GRANS 0.0 10*3/uL Normal 0.0-0.2 [facility] Comment on above: Order Comment: No: D o not add to previous draw Performed By: #### 5 610, 97736 #### [facility] [address] [place] [address], [facility] ABS NEUTROPHILS 2.3 10*3/uL Normal 1.6-7.6 [facility] Comment on above: Order Comment: No: D o not add to previous draw Performed By: #### 5 610, 48396 #### [facility] [address] [place] [address], [facility] Basophils/100 WBC (Bld) 0.3 % Normal 0.0-1.0 [facility] Comment on above: Order Comment: No: D o not add to previous draw Performed By: #### 5 610, 37259 #### [facility] [address] [place] [address], [facility] Eosinophils (Bld) [#/Vol] 0.0 10*3/uL Normal 0.0-0.5 [facility] Comment on above: Order Comment: No: D o not add to previous draw Performed By: #### 5 610, 82057 #### [facility] [address] [facility] [place] [address], [facility] Eosinophils/100 WBC (Bld) 0.0 % Normal 0.0-6.0 [facility] Comment on above: Order Comment: No: D o not add to previous draw Performed By: #### 5 610, 17171 #### [facility] [address] Erythrocyte distribution width (RBC) [Ratio] 13.3 % Normal 11.5-15.0 [facility] Comment on above: Order Comment: No: D o not add to previous draw Performed By: #### 5 6100, 46260 #### [facility] [address] [place] [address], [facility] Hematocrit (Bld) [Volume fraction] 37.7 % Normal 36.0-45.0 [facility] Comment on above: Order Comment: No: D o not add to previous draw Performed By: #### 5 6100, 70938 #### [facility] [address] [place] [address], [facility] Hemoglobin (Bld) [Mass/Vol] 12.1 g/dL Normal 12.0-15.0 [facility] Comment on above: Order Comment: No: D o not add to previous draw Performed By: #### 5 6100, 48177 #### [facility] [address] [facility] [place] [address], [facility] IMMATURE GRANS 0.2 % Normal 0.0-1.0 [facility] Comment on above: Order Comment: No: D o not add to previous draw Performed By: #### 5 6100, 48111 #### [facility] [address] [place] [address], [facility] Lymphocytes (Bld) [#/Vol] 3.0 10*3/uL Normal 1.2-4.0 [facility] Comment on above: Order Comment: No: D o not add to previous draw Performed By: #### 5 6100, 02382 #### [facility] [address] [place] [address], [facility] Lymphocytes/100 WBC (Bld) 52.0 % High 20.0-45.0 [facility] Comment on above: Order Comment: No: D o not add to previous draw Performed By: #### 5 6100, 20494 #### [facility] [address] [place] [id number], [facility] MCH (RBC) [Entitic mass] 28.7 pg Normal 27.0-33.0 [facility] Comment on above: Order Comment: No: D o not add to previous draw Performed By: #### 5 6100, 65837 #### [facility] [address] [place] [id number], [facility] MCHC (RBC) [Mass/Vol] 32.1 g/dL Normal 32.0-35.0 [facility] Comment on above: Order Comment: No: D o not add to previous draw Performed By: #### 5 6100, 49566 #### [facility] [address] [place] [id number], [facility] MCV (RBC) [Entitic vol] 89.3 fL Normal 82.0-98.0 [facility] Comment on above: Order Comment: No: D o not add to previous draw Performed By: #### 5 6100, 65277 #### [facility] [address] [place] [address], [facility] Monocytes (Bld) [#/Vol] 0.5 10*3/uL Normal 0.1-1.0 [facility] Comment on above: Order Comment: No: D o not add to previous draw Performed By: #### 5 6100, 82728 #### [facility] [address] [place] [id number], [facility] MONOS 7.9 % Normal 5.0-12.0 [facility] Comment on above: Order Comment: No: D o not add to previous draw Performed By: #### 5 6100, 19325 #### [facility] [address] [place] [id number], [facility] Neutrophils/100 WBC (Bld) 39.6 % Low 40.0-72.0 [facility] Comment on above: Order Comment: No: D o not add to previous draw Performed By: #### 5 610, 44935 #### [facility] [address] [place] [address], [facility] Nucleated RBC/100 WBC (Bld) [Ratio] 0 % Normal 0-0 [facility] Comment on above: Order Comment: No: D o not add to previous draw Performed By: #### 5 6100, 66974 #### [facility] [address] [place] [address], [place] PLAT CNT 236 10*3/uL Normal 150-400 [facility] Comment on above: Order Comment: No: D o not add to previous draw Performed By: #### 5 610, 03269 #### [facility] [address] [place] [id number], [facility] RBC (Bld) [#/Vol] 4.22 10*6/uL Normal 3.80-5.00 [facility] Comment on above: Order Comment: No: D o not add to previous draw Performed By: #### 5 6100, [id number] #### [facility] [address] [facility] [place] [address], [facility] WBC (Bld) [#/Vol] 5.85 10*3/uL Normal 4.00-10.60 [facility] Comment on above: Order Comment: No: D o not add to previous draw Performed By: #### 5 610, [id number] #### [facility] [address] [place] [id number], [facility] POC GLUCOSE LABon 08-25-2018 Glucose [Mass/Vol] 180 mg/dL High 70-100 [facility] Comment on above: Performed By: #### 5 610, [id number] #### [facility] [address] [place] [address], [place] Glucose [Mass/Vol] 129 mg/dL High 70-100 [facility] Comment on above: Performed By: #### 5 610, 58326 #### [facility] [address] [place] [address], [facility] Glucose [Mass/Vol] 132 mg/dL High 70-100 [facility] Comment on above: Performed By: #### 5 0608 #### [facility] [address] [place] [address], [facility] UFH HEPARIN ASSAYon 08-26-19 19 UNFRACTIONATED HEPARIN <0.10 Critically low 0.30-0.70 [facility] Comment on above: Result Comment: [place] roxaban and Apixaban will interfere with the anti Xa assay used to monitor UFH and LMWH. RESULTS CHECKED AND CALLED. ACCURATELY READ BACK BY JANENE ZAMARRIPA RN AT 0554 Performed By: #### 5 6101, [id number] #### [facility] [address] [place] [address], [facility] BASIC METABOLIC PANELon 08-14 Calcium [Mass/Vol] 8.5 mg/dL Low 8.6-10.3 [facility] Comment on above: Order Comment: No: D o not add to previous draw Performed By: #### 5 0608 #### [facility] [address] [facility] [place] [address], [facility] Chloride [Moles/Vol] 104 mmol/L Normal 98-107 [facility] Comment on above: Order Comment: No: D o not add to previous draw Performed By: #### 5 0608 #### [facility] [address] [place] [address], [place] CO2 [Moles/Vol] 27 mmol/L Normal 21-31 [facility] Comment on above: Order Comment: No: D o not add to previous draw Performed By: #### 5 0608 #### [facility] [address] [place] [address], [facility] Creatinine [Mass/Vol] 1.13 mg/dL Normal 0.60-1.20 [facility] Comment on above: Order Comment: No: D o not add to previous draw Performed By: #### 5 0608 #### [facility] [address] [place] [address], [place] GFR/1.73 sq M predicted among blacks MDRD (S/P/Bld) [Vol rate/Area] mL/min/{1.73_m2} Normal >60 [facility] Comment on above: Order Comment: No: D o not add to previous draw Performed By: #### 5 0608 #### [facility] [address] [place] [address], [place] GFR/1.73 sq M predicted among non-blacks MDRD (S/P/Bld) [Vol rate/Area] 52 ml/min/1.73sq m Abnormal >60 [facility] Comment on above: Order Comment: No: D o not add to previous draw Performed By: #### 5 0608 #### [facility] [address] [place] [address], [place] Glucose [Mass/Vol] 131 mg/dL High 70-100 [facility] Comment on above: Order Comment: No: D o not add to previous draw Performed By: #### 5 0608 #### [facility] [address] [place] [address], [place] Potassium [Moles/Vol] 3.9 mmol/L Normal 3.5-5.1 [facility] Comment on above: Order Comment: No: D o not add to previous draw Performed By: #### 5 0608 #### [facility] [address] [place] [address], [place] Sodium [Moles/Vol] 141 mmol/L Normal 136-145 [facility] Comment on above: Order Comment: No: D o not add to previous draw Performed By: #### 5 0608 #### [facility] [address] [place] [address], [place] Urea nitrogen [Mass/Vol] 28 mg/dL High 7-25 [facility] Comment on above: Order Comment: No: D o not add to previous draw Performed By: #### 5 0608 #### [facility] [address] CBC COMPLETE BLOOD COUNTon - Erythrocyte distribution width (RBC) [Ratio] 13.5 % Normal 11.5-15.0 [facility] Comment on above: Order Comment: No: D o not add to previous draw Performed By: #### 5 0608 #### [facility] [address] Hematocrit (Bld) [Volume fraction] 37.1 % Normal 36.0-45.0 [facility] Comment on above: Order Comment: No: D o not add to previous draw Performed By: #### 5 0608 #### [facility] [address] Hemoglobin (Bld) [Mass/Vol] 12.2 g/dL Normal 12.0-15.0 [facility] Comment on above: Order Comment: No: D o not add to previous draw Performed By: #### 5 0608 #### [facility] [address] [facility] [place] [address], [facility] MCH (RBC) [Entitic mass] 28.8 pg Normal 27.0-33.0 [facility] Comment on above: Order Comment: No: D o not add to previous draw Performed By: #### 5 0608 #### [facility] [address] [place] [address], [facility] MCHC (RBC) [Mass/Vol] 32.9 g/dL Normal 32.0-35.0 [facility] Comment on above: Order Comment: No: D o not add to previous draw Performed By: #### 5 0608 #### [facility] [address] [place] [id number], [facility] MCV (RBC) [Entitic vol] 87.7 fL Normal 82.0-98.0 [facility] Comment on above: Order Comment: No: D o not add to previous draw Performed By: #### 5 0608 #### [facility] [address] [facility] [place] [address], [facility] Nucleated RBC/100 WBC (Bld) [Ratio] 0 % Normal 0-0 [facility] Comment on above: Order Comment: No: D o not add to previous draw Performed By: #### 5 0608 #### [facility] [address] [facility] [place] [address], [facility] PLAT CNT 251 10*3/uL Normal 150-400 [facility] Comment on above: Order Comment: No: D o not add to previous draw Performed By: #### 5 0608 #### [facility] [address] [facility] [place] [place] [address], [facility] RBC (Bld) [#/Vol] 4.23 10*6/uL Normal 3.80-5.00 [facility] Comment on above: Order Comment: No: D o not add to previous draw Performed By: #### 5 0608 #### [facility] [address] [facility] [place] [place] [address], [facility] WBC (Bld) [#/Vol] 8.42 10*3/uL Normal 4.00-10.60 [facility] Comment on above: Order Comment: No: D o not add to previous draw Performed By: #### 5 0608 #### [facility] [address] Cardiovascular Lab Reporton 08-24-2018 Cardiovascular Lab Report [facility] Patient Name: Sahra [facility] A MR #: [id number] Department of Physician: Marshall Torres M.D. Division of Service Date: 08/23/2018 Cardiology Birthdate: 1970 Adult Cardiovascular Room #: 3AB [id number] [place] [address] Cardiovascular Laboratory Report FINAL IMPRESSION: 1. Mild [...] 5. Follow up with me in the [facility] post discharge. 6. Further recommendations deferred [...] the left radial artery was obtained. A 6-[place] Glidesheath was inserted without difficulty. Bilateral selective [...] 30% stenosis adjacent to a prominent septal check cashier. There are luminal irregularities throughout the remainder [...] Godoy M.D. Date Trans: 08/24/2018 06:37 A/yadira [id number] cc: Geovanni Brunner D.O. [address] [place] [address] [address] [facility] [address] Normal [facility] HIP RIGHT 1 OR 2 VWS WITH PE LVISon 08-24-2018 HIP RIGHT 1 OR 2 VWS WITH PELVIS [facility] Department of Radiology [address] [place] [id number] Patient Name: SHERLY HUMPHREYS : 1970 Sex: F Age: Race: White Pt. Location: [id number] Patient Status: D Ordered Date: 08/24/2018 12:30:00 [...] findings. Electronically signed by:Kristy Jones. Transcribed by: [email or web address], User Resident: [email or web address] Electronically Signed by: KRISTY JONES @ 08/25/2018 08:05 PM I personally read this/these film(s) with this resident Normal [facility] Comment on above: Order Comment: No: D o not add to previous draw POC GLUCOSE LABon 08-24-2018 Glucose [Mass/Vol] 125 mg/dL High 70-100 [facility] Comment on above: Performed By: #### 5 0608 #### [facility] [address] [place] [address], [place] Glucose [Mass/Vol] 150 mg/dL High 70-100 [facility] Comment on above: Performed By: #### 5 0608 #### [facility] [address] [place] [address], [place] Glucose [Mass/Vol] 119 mg/dL High 70-100 [facility] Comment on above: Performed By: #### 5 0608 #### [facility] [address] UFH HEPARIN ASSAYon 08-25-19 19 UNFRACTIONATED HEPARIN <0.10 Critically low 0.30-0.70 [facility] Comment on above: Result Comment: [place] roxaban and Apixaban will interfere with the anti Xa assay used to monitor UFH and LMWH. RESULTS CHECKED AND CALLED. ACCURATELY READ BACK BY JANENE ZAMARRIPA RN AT 0732 Performed By: #### 5 0608 #### [facility] [address] APTTon 08-23-2018 aPTT Coag (Bld) [Time] 38.8 s High 25.0-35.0 [facility] Comment on above: Order Comment: No: [...] THIS PURPOSE. Performed By: #### 5 6101, [id number] #### [facility] [address] [facility] [address] CBC COMPLETE BLOOD COUNTon 0 08-23-2018 Erythrocyte distribution width (RBC) [Ratio] 13.3 % Normal 11.5-15.0 [facility] Comment on above: Order Comment: No: D o not add to previous draw Performed By: #### 5 0608 #### [facility] [address] [facility] [address] Hematocrit (Bld) [Volume fraction] 41.4 % Normal 36.0-45.0 [facility] Comment on above: Order Comment: No: D o not add to previous draw Performed By: #### 5 0608 #### [facility] [address] [place] [address], [place] Hemoglobin (Bld) [Mass/Vol] 13.8 g/dL Normal 12.0-15.0 [facility] Comment on above: Order Comment: No: D o not add to previous draw Performed By: #### 5 0608 #### [facility] [address] [place] [id number], [facility] MCH (RBC) [Entitic mass] 29.0 pg Normal 27.0-33.0 [facility] Comment on above: Order Comment: No: D o not add to previous draw Performed By: #### 5 0608 #### [facility] [address] [place] [id number], [facility] MCHC (RBC) [Mass/Vol] 33.3 g/dL Normal 32.0-35.0 [facility] Comment on above: Order Comment: No: D o not add to previous draw Performed By: #### 5 0608 #### [facility] [address] [facility] [place] [address], [facility] MCV (RBC) [Entitic vol] 87.0 fL Normal 82.0-98.0 [facility] Comment on above: Order Comment: No: D o not add to previous draw Performed By: #### 5 0608 #### [facility] [address] [facility] [place] [address], [facility] Nucleated RBC/100 WBC (Bld) [Ratio] 0 % Normal 0-0 [facility] Comment on above: Order Comment: No: D o not add to previous draw Performed By: #### 5 0608 #### [facility] [address] [place] [address], [place] PLAT CNT 293 10*3/uL Normal 150-400 [facility] Comment on above: Order Comment: No: D o not add to previous draw Performed By: #### 5 0608 #### [facility] [address] [place] [address], [facility] RBC (Bld) [#/Vol] 4.76 10*6/uL Normal 3.80-5.00 [facility] Comment on above: Order Comment: No: D o not add to previous draw Performed By: #### 5 0608 #### [facility] [address] WBC (Bld) [#/Vol] 10.48 10*3/uL Normal 4.00-10.60 [facility] Comment on above: Order Comment: No: D o not add to previous draw Performed By: #### 5 0608 #### [facility] [address] History and Physicalon 08-23 History and Physical MR#: [id number] [facility] Pt. Name: Sherly Humphreys Admitted: 08/23/2018 Date of : 1970 Attending Physician: Nini Valente MD Room #: [id number] Discharge Date: HISTORY AND PHYSICAL CHIEF COMPLAINT: [...] she went to the emergency department in [facility]. Initial evaluation included troponin and EKG, which were negative. The patient was started on nitroglycerin patch. She experienced some relief after starting the nitroglycerin patch. Her pain went down from 8 to 6/10. Given her significant cardiac history, the patient was transferred to [facility] for further evaluation. The patient [...] with no ST-T wave changes. Troponin from [facility] was 0.01. Pending troponin in our facility. [...] Valente MD Date Trans: 08/23/2018 06:27 Amanda/yadira [id number] Normal [facility] POC GLUCOSE LABon 08-23-2018 Glucose [Mass/Vol] 101 mg/dL High 70-100 [facility] Comment on above: Performed By: #### 5 0608 #### [facility] [address] [facility] [place] [address], [facility] Glucose [Mass/Vol] 96 mg/dL Normal 70-100 [facility] Comment on above: Performed By: #### 5 0608 #### [facility] [address] [facility] [place] [address], [place] Glucose [Mass/Vol] 134 mg/dL High 70-100 [facility] Comment on above: Performed By: #### 8 5499 #### [facility] [address] [place] [address], [place] Glucose [Mass/Vol] 164 mg/dL High 70-100 [facility] Comment on above: Performed By: #### 8 5499 #### [facility] [address] [place] [address], [place] PROTHROMBIN TIMEon 9 INR Coag (PPP) [Relative time] 1.06 {INR} Normal 0.91-1.16 [facility] Comment on above: Order Comment: No: [...] CHEST 1995;[id number]. Performed By: #### 5 6101, [id number] #### [facility] [address] [place] [address], [facility] PT Coag (PPP) [Time] 13.8 s Normal 12.3-14.8 [facility] Comment on above: Order Comment: No: D o not add to previous draw Result Comment: ALL RESULTS MUST BE INTERPRETED WITH RESPECT TO BLOOD DRAWING ARTIFACT OR DILUTION ERROR OF ANTICOAGULANT AT THE TIME OF SAMPLING. Performed By: #### 5 6101, [id number] #### [facility] [address] [place] [address], [facility] SERUM TESTon 08-23 TEST Negative Normal [facility] Comment on above: Order Comment: Yes: Add to Previous draw if able Performed By: #### 4 6473 #### [facility] [address] [place] [id number], [facility] TROPONIN-Ion 08-23-2018 Troponin I.cardiac [Mass/Vol] 0.01 ng/mL Normal 0.00-0.04 [facility] Comment on above: Order Comment: No: D o not add to previous draw Result Comment: REFE RENCE RANGES: 0.00 - 0.04 ng/ml NORMAL 0.05 - 0.50 ng/ml INDETERMINATE > 0.50 ng/ml CONSISTENT WITH AN M.I. Performed By: #### 3 5200 #### [facility] [address] UFH HEPARIN ASSAYon 08-24-19 19 UNFRACTIONATED HEPARIN 0.42 IU/mL Normal 0.30-0.70 [facility] Comment on above: Order Comment: per beatriz schneider Result Comment: [place] roxaban and Apixaban will interfere with the anti Xa assay used to monitor UFH and LMWH. Performed By: #### 3 0477 #### [facility] [address] UNFRACTIONATED HEPARIN 0.29 IU/mL Low 0.30-0.70 [facility] Comment on above: Result Comment: [place] roxaban and Apixaban will interfere with the anti Xa assay used to monitor UFH and LMWH. Performed By: #### 3 0477 #### [facility] [address] US GALLBLADDERon 08-23-2018 US GALLBLADDER [facility] Department of Radiology [address] [place] [id number] Patient Name: SHERLY HUMPHREYS : 1970 Sex: F Age: Race: White Pt. Location: [address] [place] [address] Patient Status: I Ordered Date: 08/23/2018 11:30:00 [...] gallbladder. Electronically signed by:Nathan Mauricio. Transcribed by: [email or web address], User Resident: Electronically Signed by: NATHAN MAURICIO @ 08/23/2018 03:33 PM Normal [facility] Comment on above: Order Comment: No: D o not add to previous draw Vital Signs Date Time Vital Sign Value Performing Clinician Facility 06-16-2024 09:07-0500 Body height 170.2 cm [employer] Work Phone: [facility] 06-16-2024 09:07-0500 Body mass index (BMI) [Ratio] 38.37 kg/m2 [employer] Work Phone: [facility] 06-16-2024 09:07-0500 Body temperature 98.2 [degF] [employer] Work Phone: [facility] 06-16-2024 09:07-0500 Body weight 111.13 kg [employer] Work Phone: [facility] 03-03-2025 09:07-0500 Diastolic blood pressure 82 mm[Hg] Marya Petznick DO Work Phone: [facility] 06-16-2024 09:07-0500 Heart rate 61 /min Marya Petznick DO Work Phone: [facility] 06-16-2024 09:07-0500 SaO2% (BldA) [Mass fraction] 97 % Marya Petznick DO Work Phone: [facility] 06-16-2024 09:07-0500 Systolic blood pressure 136 mm[Hg] Marya Petznick DO Work Phone: [facility] 03-06-2024 09:28-0500 Body height 170.2 cm Janeneamanda Lew RENTAL COUNTER CLERK Work Phone: [facility] 03-06-2024 09:28-0500 Body mass index (BMI) [Ratio] 40.69 kg/m2 Janene Louann RENTAL COUNTER CLERK Work Phone: [facility] 03-06-2024 09:28-0500 Body temperature 98.49 [degF] Janene Emiz RENTAL COUNTER CLERK Work Phone: [facility] 03-06-2024 09:28-0500 Body weight 117.84 kg Janene Emiz RENTAL COUNTER CLERK Work Phone: [facility] 03-06-2024 09:28-0500 Diastolic blood pressure 84 mm[Hg] Janene Emiz RENTAL COUNTER CLERK Work Phone: [facility] 03-06-2024 09:28-0500 Heart rate 60 /min Janene Emiz RENTAL COUNTER CLERK Work Phone: [facility] 03-06-2024 09:28-0500 Respiratory rate 20 /min Janene Reddhholz RENTAL COUNTER CLERK Work Phone: [facility] 03-06-2024 09:28-0500 SaO2% (BldA) [Mass fraction] 96 % Jaenne Emiz RENTAL COUNTER CLERK Work Phone: [facility] 03-06-2024 09:28-0500 Systolic blood pressure 132 mm[Hg] Janene Louann RENTAL COUNTER CLERK Work Phone: [facility] 02-19-2024 09:23-0500 Body height 162.6 cm Marya Petznick DO Work Phone: [facility] 02-19-2024 09:23-0500 Body mass index (BMI) [Ratio] 46.86 kg/m2 Marya Petznick DO Work Phone: [facility] 02-19-2024 09:23-0500 Body temperature 96.8 [degF] Marya Petznick DO Work Phone: [facility] 02-19-2024 09:23-0500 Body weight 123.83 kg Marya Petznick DO Work Phone: [facility] 02-19-2024 09:23-0500 Diastolic blood pressure 82 mm[Hg] Marya Petznick DO Work Phone: [facility] 02-19-2024 09:23-0500 Heart rate 56 /min Marya Petznick DO Work Phone: [facility] 02-19-2024 09:23-0500 SaO2% (BldA) [Mass fraction] 97 % Marya Petznick DO Work Phone: [facility] 02-19-2024 09:23-0500 Systolic blood pressure 130 mm[Hg] Marya Petznick DO Work Phone: [facility] 12-05-2023 08:35-0400 Body height 162.6 cm Janene Louann RENTAL COUNTER CLERK Work Phone: [facility] 12-05-2023 08:35-0400 Body mass index (BMI) [Ratio] 49.06 kg/m2 Janene Lew RENTAL COUNTER CLERK Work Phone: [facility] 12-05-2023 08:35-0400 Body temperature 98.71 [degF] Janene Lew RENTAL COUNTER CLERK Work Phone: [facility] 12-05-2023 08:35-0400 Body weight 129.64 kg Janene Aichholz RENTAL COUNTER CLERK Work Phone: [facility] 12-05-2023 08:35-0400 Diastolic blood pressure 88 mm[Hg] Janene Aichholz RENTAL COUNTER CLERK Work Phone: [facility] 12-05-2023 08:35-0400 Heart rate 66 /min Janene Aichholz RENTAL COUNTER CLERK Work Phone: [facility] 12-05-2023 08:35-0400 Respiratory rate 20 /min Janene Aichholz RENTAL COUNTER CLERK Work Phone: [facility] 12-05-2023 08:35-0400 SaO2% (BldA) [Mass fraction] 98 % Janene Aichholz RENTAL COUNTER CLERK Work Phone: [facility] 12-05-2023 08:35-0400 Systolic blood pressure 122 mm[Hg] Janene Aichholz RENTAL COUNTER CLERK Work Phone: [facility] 11-01-2023 11:00-0400 Diastolic blood pressure 83 mm[Hg] Janene Aichholz Work Phone: [facility] 11-01-2023 11:00-0400 Heart rate 52 /min Janene Aichholz Work Phone: [facility] 11-01-2023 11:00-0400 Respiratory rate 16 /min Janene Aichholz Work Phone: [facility] 11-01-2023 11:00-0400 SaO2% (BldA) [Mass fraction] 98 % Janene Aichholz Work Phone: [facility] 11-01-2023 11:00-0400 Systolic blood pressure 144 mm[Hg] Janene Aichholz Work Phone: [facility] 11-01-2023 10:30-0400 Inhaled oxygen flow rate 8 L/min Janene Aichholz Work Phone: [facility] 11-01-2023 07:28-0400 Body height 162.56 cm Janene Aichholz Work Phone: [facility] 11-01-2023 07:28-0400 Body temperature 97.9 [degF] Janene Aichholz Work Phone: [facility] 11-01-2023 07:28-0400 Body weight 129.72 kg Janene Aichholz Work Phone: [facility] 10-16-2023 13:05-0400 Body height 162.56 cm Janene Aichholz Work Phone: [facility] 10-16-2023 13:05-0400 Body mass index (BMI) [Ratio] 51.5 kg/m2 Janene Aichholz Work Phone: [facility] 10-16-2023 13:05-0400 Body temperature 97.3 [degF] Janene Aichholz Work Phone: [facility] 10-16-2023 13:05-0400 Body weight 136.3 kg Janene Aichholz Work Phone: [facility] 10-16-2023 13:05-0400 Diastolic blood pressure 76 mm[Hg] Janene Aichholz Work Phone: [facility] 10-16-2023 13:05-0400 Heart rate 69 /min Janene Aichholz Work Phone: [facility] 10-16-2023 13:05-0400 Respiratory rate 18 /min Janene Aichholz Work Phone: [facility] 10-16-2023 13:05-0400 SaO2% (BldA) [Mass fraction] 99 % Janene Aichholz Work Phone: [facility] 10-16-2023 13:05-0400 Systolic blood pressure 125 mm[Hg] Janene Aichholz Work Phone: [facility] 10-02-2023 08:00-0400 Body temperature 97.9 [degF] Janene Aichholz Work Phone: [facility] [facility] 10-02-2023 08:00-0400 Diastolic blood pressure 82 mm[Hg] Janene Aichholz Work Phone: [facility] 10-02-2023 08:00-0400 Heart rate 58 /min Janene Aichholz Work Phone: [facility] 10-02-2023 08:00-0400 Respiratory rate 16 /min Janene Aichholz Work Phone: [facility] 10-02-2023 08:00-0400 SaO2% (BldA) [Mass fraction] 100 % Janene Aichholz Work Phone: [facility] 10-02-2023 08:00-0400 Systolic blood pressure 138 mm[Hg] Janene Aichholz Work Phone: [facility] 10-02-2023 05:02-0400 Body weight 139.8 kg Janene Aichholz Work Phone: [facility] 10-01-2023 05:34-0400 Body height 162.56 cm Janene Aichholz Work Phone: [facility] 08-15-2023 10:02-0400 Body height 162.56 cm Janene Aichholz Work Phone: [facility] 08-15-2023 10:02-0400 Body mass index (BMI) [Ratio] 54.6 kg/m2 Janene Aichholz Work Phone: [facility] 08-15-2023 10:02-0400 Body temperature 96.9 [degF] Janene Aichholz Work Phone: [facility] 08-15-2023 10:02-0400 Body weight 144.24 kg Janene Aichholz Work Phone: [facility] 08-15-2023 10:02-0400 Diastolic blood pressure 77 mm[Hg] Janene Lew Work Phone: [facility] 08-15-2023 10:02-0400 Heart rate 59 /min Janene Lew Work Phone: [facility] 08-15-2023 10:02-0400 Respiratory rate 18 /min Janene Lew Work Phone: [facility] 08-15-2023 10:02-0400 SaO2% (BldA) [Mass fraction] 98 % Janene Lew Work Phone: [facility] 08-15-2023 10:02-0400 Systolic blood pressure 130 mm[Hg] Janene Lew Work Phone: [facility] 08-14-2022 10:15-0400 Body height 162.56 cm Ivan Pandaky Other [employer] Other 08-14-2022 10:15-0400 Body mass index (BMI) [Ratio] 51.63 kg/m2 Ivan Sams Other [employer] Other 08-14-2022 10:15-0400 Body weight 136.44 kg Ivan Pandaky Other [employer] Other 08-14-2022 10:15-0400 Diastolic blood pressure 80 mm[Hg] Ivan Pandaky Other [employer] Other 08-14-2022 10:15-0400 SaO2% (BldA) [Mass fraction] 99 % Ivan Sams Other [employer] Other 08-14-2022 10:15-0400 Systolic blood pressure 140 mm[Hg] Ivan Sams Other [employer] Other 07-03-2022 12:30-0400 Body height 162.56 cm Ivan Sams Other [employer] Other 07-03-2022 12:30-0400 Body mass index (BMI) [Ratio] 51.39 kg/m2 Ivan Sams Other [employer] Other 07-03-2022 12:30-0400 Body weight 135.81 kg Ivan Sams Other [employer] Other 07-03-2022 12:30-0400 Diastolic blood pressure 84 mm[Hg] Ivan Sams Other [employer] Other 07-03-2022 12:30-0400 SaO2% (BldA) [Mass fraction] 99 % Ivan Sams Other [employer] Other 07-03-2022 12:30-0400 Systolic blood pressure 142 mm[Hg] Ivan Sams Other [employer] Other 06-24-2022 15:59-0500 Body height 162.56 cm Janene Louann Work Phone: [facility] 06-24-2022 15:59-0500 Body temperature 98.2 [degF] Janene Louann Work Phone: [facility] 06-24-2022 15:59-0500 Body weight 134.4 kg Janene Aichholz Work Phone: [facility] 06-24-2022 15:59-0500 Diastolic blood pressure 95 mm[Hg] Janene Aichholz Work Phone: [facility] 06-24-2022 15:59-0500 Heart rate 94 /min Janene Lew Work Phone: [facility] 06-24-2022 15:59-0500 Respiratory rate 20 /min Janene Lew Work Phone: [facility] 06-24-2022 15:59-0500 SaO2% (BldA) [Mass fraction] 96 % Janene Lew Work Phone: [facility] 06-24-2022 15:59-0500 Systolic blood pressure 187 mm[Hg] Janene Lew Work Phone: [facility] 05-12-2022 12:00-0500 Body height 162.56 cm Christian Hamilton Other [facility] [employer] Other 05-12-2022 12:00-0500 Body mass index (BMI) [Ratio] 51.94 kg/m2 Christian Hamilton Other [facility] [employer] Other 05-12-2022 12:00-0500 Body weight 137.26 kg Christian Hamilton Other [facility] [employer] Other 04-25-2022 12:20-0500 Body height 162.56 cm Halle Mac Other [employer] Other 04-25-2022 12:20-0500 Body mass index (BMI) [Ratio] 51.94 kg/m2 Donaldaurelia [employer]er [employer] Other [employer] Other 04-25-2022 12:20-0500 Body temperature 97.5 [degF] Donaldaurelia Priscillacarmel Other [employer] Other 01-10-2023 12:20-0500 Body weight 137.26 kg Halle Mac Other [employer] Other 04-25-2022 12:20-0500 Diastolic blood pressure 80 mm[Hg] Halle Mac Other [employer] Other 04-25-2022 12:20-0500 Respiratory rate 18 /min Halle Mac Other [employer] Other 04-25-2022 12:20-0500 SaO2% (BldA) [Mass fraction] 97 % Halle Mac Other [employer] Other 04-25-2022 12:20-0500 Systolic blood pressure 140 mm[Hg] Halle Mac Other [employer] Other 01-25-2022 16:15-0400 Body height 162.56 cm Emma Bolivar Other [employer] Other 01-25-2022 16:15-0400 Body mass index (BMI) [Ratio] 52.78 kg/m2 Emma Bolivar Other [employer] Other 01-25-2022 16:15-0400 Body temperature 97.1 [degF] Emma Bolivar Other [employer] Other 01-25-2022 16:15-0400 Body weight 139.48 kg Emma Bolivar Other [employer] Other 01-25-2022 16:15-0400 Diastolic blood pressure 70 mm[Hg] Emma Bolivar Other [employer] Other 01-25-2022 16:15-0400 SaO2% (BldA) [Mass fraction] 98 % Emmaandreina Bolivar Other [employer] Other 01-25-2022 16:15-0400 Systolic blood pressure 142 mm[Hg] Emma Bolivar Other [employer] Other 12-06-2021 12:20-0400 Body height 162.56 cm Christian Hamilton Other [employer] Other 12-06-2021 12:20-0400 Body mass index (BMI) [Ratio] 46.34 kg/m2 Christian Hamilton Other [employer] Other 12-06-2021 12:20-0400 Body weight 122.47 kg Christian Hamilton Other [employer] Other 11-10-2021 16:20-0400 Body height 162.56 cm Christian Hamilton Other [employer] Other 11-10-2021 16:20-0400 Body mass index (BMI) [Ratio] 46.34 kg/m2 Christian Hamilton Other [employer] Other 11-10-2021 16:20-0400 Body weight 122.47 kg Christian Hamilton Other [employer] Other 09-29-2021 14:00-0400 Body height 162.56 cm Christian Hamilton Other [employer] Other 09-29-2021 14:00-0400 Body mass index (BMI) [Ratio] 46 kg/m2 Christian Hamilton Other [employer] Other 09-29-2021 14:00-0400 Body weight 121.56 kg Christian Hamilton Other [employer] Other 08-30-2021 15:40-0400 Body height 162.56 cm Christian Hamilton Other [employer] Other 08-30-2021 15:40-0400 Body mass index (BMI) [Ratio] 46 kg/m2 Christian Hamilton Other [employer] Other 08-30-2021 15:40-0400 Body weight 121.56 kg Christian Hamilton Other [employer] Other Encounters Encounter Date Encounter Type Care Provider Facility Start: 08-12-2024 End: 08-14-2024 Refill Janene Lew RENTAL COUNTER CLERK Work Phone: [facility] Start: 07-25-2024 End: 07-25-2024 Refill Janene Lew RENTAL COUNTER CLERK Work Phone: [facility] Comment on above: Restless leg syndrom e Start: 07-17-2024 ambulatory Janene Lew Facilit y:[facility] Start: 07-15-2024 End: 07-15-2024 Orders Only Janene Lew RENTAL COUNTER CLERK Work Phone: [facility] Comment on above: Acute foot pain, lef t (Primary Dx); Acute left ankle pain Start: 06-16-2024 End: 06-16-2024 Bamboo flowsheet Marya Castorena DO Work Phone: [facility] Start: 06-16-2024 End: 06-16-2024 Bamboo flowsheet Marya Andrade Petznick DO Work Phone: [facility] Start: 06-16-2024 End: 06-16-2024 Office outpatient visit 25 minutes Marya Castorena DO Work Phone: [facility] Comment on above: Class 2 severe obesi ty due to excess calories with serious comorbidity and body mass index (BMI) of 38.0 to 38.9 in adult (CMS/[facility]) (Primary Dx); Type 2 diabetes mellitus with other circulatory complications (CMS/HCC); Type 2 diabetes mellitus with stage 3a chronic kidney disease, without long-term current use of insulin (HCC) (CMS/HCC) Start: 06-16-2024 End: 06-16-2024 ambulatory MARYA MCGOWANDARIN Not Available Start: 05-27-2024 End: 05-27-2024 Refill Janene Louann RENTAL COUNTER CLERK Work Phone: [facility] Comment on above: Muscle spasm Start: 03-20-2024 End: 03-21-2024 Refill Janene Louann RENTAL COUNTER CLERK Work Phone: [facility] Comment on above: Restless leg syndrom e Start: 03-11-2024 End: 03-11-2024 ambulatory Janene Lew Facility:[facility] Start: 03-06-2024 End: 03-06-2024 Bamboo flowsheet Janene Louann RENTAL COUNTER CLERK Work Phone: [facility] Start: 03-06-2024 End: 03-06-2024 Bamboo flowsheet Janene Reddhomkar RENTAL COUNTER CLERK Work Phone: [facility] Start: 03-06-2024 End: 03-06-2024 Office outpatient visit 25 minutes Janene Lew RENTAL COUNTER CLERK Work Phone: [facility] Comment on above: Primary hypertension (CMS/[facility]) (Primary Dx); Spinal stenosis of lumbar region at multiple levels; Restless leg syndrome; URIEL (obstructive sleep apnea); Coronary arteriosclerosis (CMS/HCC); Stage 3b chronic kidney disease (HCC) (CMS/[facility]); Swelling of both lower extremities; Lower extremity edema; Type 2 diabetes mellitus with stage 3a chronic kidney disease, without long-term current use of insulin (HCC) (CMS/[facility]); Class 3 severe obesity due to excess calories with serious comorbidity and body mass index (BMI) of 45.0 to 49.9 in adult ([facility]); Bipolar affective disorder, remission status unspecified ([facility]); Generalized anxiety disorder ([facility]); Vitamin D deficiency; Vitamin B12 deficiency; H/O bariatric surgery; Acute non-recurrent pansinusitis Start: 03-06-2024 End: 03-06-2024 ambulatory JANENE AICHHOLZ Not Available Start: 02-22-2024 End: 02-25-2024 Refill Janene Aichholz RENTAL COUNTER CLERK Work Phone: [facility] Comment on above: Muscle spasm Start: 02-19-2024 End: 02-19-2024 Office outpatient visit 25 minutes Marya Castorena DO Work Phone: [facility] Comment on above: Type 2 diabetes chidi itus with other circulatory complications ([facility]) (Primary Dx); Type 2 diabetes mellitus with stage 4 chronic kidney disease, without long-term current use of insulin ([facility]); Type 2 diabetes mellitus with stage 3a chronic kidney disease, without long-term current use of insulin ([facility]) ([facility]); Class 3 severe obesity due to excess calories with serious comorbidity and body mass index (BMI) of 45.0 to 49.9 in adult ([facility]) Start: 02-19-2024 End: 02-19-2024 ambulatory MARYA Andrade RAFFAELE Not Available Start: 01-14-2024 End: 01-14-2024 Refill Janene Aichholz RENTAL COUNTER CLERK Work Phone: [facility] Comment on above: Primary hypertension ([facility]) Start: 12-19-2023 End: 12-19-2023 Refill Janene Aichholz RENTAL COUNTER CLERK Work Phone: [facility] Comment on above: Type 2 diabetes chidi itus with stage 4 chronic kidney disease, without long-term current use of insulin ([facility]) (Primary Dx) Start: 12-18-2023 End: 12-18-2023 Clinisync Result Encounter Janene Aichholz RENTAL COUNTER CLERK Work Phone: [facility] External Department Unsolicited Start: 12-18-2023 End: 12-18-2023 Clinisync Result Encounter Janene Aichholz RENTAL COUNTER CLERK Work Phone: [facility] Department Unsolicited Start: 12-18-2023 End: 12-18-2023 Refill Janene Louann RENTAL COUNTER CLERK Work Phone: [facility] Comment on above: Restless leg syndrom e Start: 12-18-2023 End: 12-18-2023 ambulatory [facility] Comment on above: Antibiotic-induced y east infection (Primary Dx) Start: 12-05-2023 End: 12-05-2023 Bamboo flowsheet Janene Louann RENTAL COUNTER CLERK Work Phone: [facility] Start: 12-05-2023 End: 12-05-2023 Bamboo flowsheet Janene Louann RENTAL COUNTER CLERK Work Phone: [facility] Start: 12-05-2023 End: 12-07-2023 Refill Janene Louann RENTAL COUNTER CLERK Work Phone: [facility] Comment on above: Muscle spasm Start: 12-05-2023 End: 12-05-2023 Office outpatient visit 25 minutes Janene Lew RENTAL COUNTER CLERK Work Phone: [facility] Comment on above: Left lower quadrant abdominal pain (Primary Dx); Morbid (severe) obesity due to excess calories (CMS/HCC); Body mass index (BMI) 45.0-49.9, adult (CMS/HCC); Restless leg syndrome; Stage 3b chronic kidney disease (HCC) (CMS/HCC) Start: 12-05-2023 End: 12-05-2023 ambulatory JANENE EMIZ Not Available Start: 12-03-2023 End: 12-03-2023 ambulatory Elza Conway MD Facility:[facility] Start: 11-19-2023 End: 11-19-2023 ambulatory MARYA CASTORENA Not Available Start: 11-12-2023 End: 11-13-2023 ambulatory [facility] Start: 11-01-2023 End: 11-01-2023 Admission to same day surgery center Janene Lew Work Phone: [facility] [place] Start: 11-01-2023 End: 11-01-2023 ambulatory Janeneamanda Jonesholz Work Phone: [facility] Work Phone: Start: 10-29-2023 Registered Recurring Janene adamsz Work Phone: [facility] Start: 10-24-2023 End: 10-24-2023 ambulatory JANENE KARENHOLZ Not Available Start: 10-16-2023 End: 10-16-2023 ambulatory Janene J Karenholz Work Phone: [facility] Work Phone: Start: 10-16-2023 End: 10-16-2023 Patient encounter procedure Janeneamanda Jonesholz Work Phone: [facility] Work Phone: Start: 10-16-2023 Registered Recurring Janene espitia Work Phone: [facility] Start: 10-11-2023 End: 10-11-2023 Patient encounter procedure Janene Karenholz Work Phone: [facility] [place] Work Phone: Start: 10-11-2023 End: 10-11-2023 ambulatory Janene J Karenholz Work Phone: [facility] Work Phone: Start: 10-01-2023 Non-patient / Non-visit Janene A ichholz Work Phone: [facility] Work Phone: Start: 10-01-2023 End: 10-02-2023 Evaluation and management of inpatient Janene Aictimmyholz Work Phone: [facility] [place] [facility] Work Phone: Start: 09-24-2023 End: 09-24-2023 ambulatory Elza Conway MD Facility:[facility] Start: 09-20-2023 End: 09-20-2023 ambulatory NUNEZ TYLER Not Available Start: 09-14-2023 End: 09-14-2023 ambulatory BAN CLEMENTE V Not Available Start: 09-13-2023 End: 09-13-2023 ambulatory JANENE LEW Not Available Start: 09-11-2023 End: 09-11-2023 ambulatory EHAB [facility] Start: 09-03-2023 Registered Recurring Janene espitia Work Phone: [facility] Start: 08-15-2023 End: 08-15-2023 Patient encounter procedure Janene Lew Work Phone: [facility] Work Phone: Start: 08-10-2023 End: 08-10-2023 Patient encounter procedure Janene Lew Work Phone: [facility] [place] Work Phone: Start: 08-10-2023 End: 08-10-2023 ambulatory Janene Lew Work Phone: [facility] Work Phone: Start: 07-09-2023 End: 07-09-2023 ambulatory Elza Conway MD Facility:[facility] Start: 07-03-2023 End: 07-03-2023 ambulatory JESSICA GASPAR Not Available Start: 07-02-2023 End: 07-02-2023 ambulatory JANENE LOUANN Not Available Start: 06-26-2023 End: 06-26-2023 ambulatory BAN CLEMENTE V Not Available Start: 06-19-2023 End: 06-19-2023 ambulatory BAN CLEMENTE V Not Available Start: 06-19-2023 End: 06-19-2023 Patient encounter procedure Janene Middletonrufus Work Phone: [facility] [place] Work Phone: Start: 05-25-2023 End: 05-25-2023 ambulatory MARKEL HAQ Facility:[facility] Start: 05-17-2023 End: 05-17-2023 ambulatory Janene Lopes Reddtimmyangierufus Work Phone: [facility] Work Phone: Start: 05-17-2023 End: 05-17-2023 Patient encounter procedure Janene Jonesangierufus Work Phone: [facility] [place] Work Phone: Start: 03-15-2023 Registered Recurring Janene Jones omkar Work Phone: [facility] Start: 03-14-2023 End: 03-14-2023 ambulatory AB [facility] Start: 02-19-2023 End: 02-19-2023 ambulatory Elza Conway MD Facility: [facility] Start: 01-01-2023 End: 01-01-2023 ambulatory Elza Conway MD Facility: [facility] Start: 11-29-2022 End: 11-29-2022 ambulatory Halle Mac Other [employer] Other Start: 11-29-2022 Telephone encounter Halle Mac [facility] Start: 09-18-2022 End: 09-18-2022 ambulatory Ivan Sams Other [employer] Other Start: 09-18-2022 Telephone encounter Ivan Sams [facility] Start: 09-07-2022 End: 09-07-2022 ambulatory BRICK VENEER MAKER JANENE LEW Facility: Start: 08-14-2022 End: 08-14-2022 ambulatory Ivan Sams Other [employer] Other Start: 08-14-2022 Office outpatient vi sit 25 minutes Ivan Sams [facility] Start: 07-03-2022 End: 07-03-2022 ambulatory Ivan Sams Other [employer] Other Start: 07-03-2022 Office consultation new/estab patient 60 min Ivanying Sams [facility] Start: 06-24-2022 End: 06-24-2022 Emergency department patient visit Janene Aictimmyholz Work Phone: [facility] Work Phone: Start: 06-08-2022 End: 06-09-2022 ambulatory BRICK VENEER MAKER JANENE AICHHOLZ Facility:[facility] Start: 05-29-2022 End: 05-30-2022 ambulatory BRICK VENEER MAKER JANENE AICHHOLZ Facility:[facility] Start: 05-13-2022 ambulatory BRICK VENEER MAKER JANENE AICHHOLZ Facil ity:[facility] Start: 05-12-2022 End: 05-12-2022 ambulatory Christian Hamilton Other [employer] Other Start: 05-12-2022 Office outpatient vi sit 15 minutes Christian Hamilton [facility] Start: 04-25-2022 End: 04-25-2022 ambulatory Azaurelia Webers Other [employer] Other Start: 04-25-2022 Office outpatient ne w 30 minutes Aziz Bakhous [facility] [place] Start: 03-29-2022 End: 03-30-2022 ambulatory BRICK VENEER MAKER JANENE AICHHOLZ Facility:[facility] Start: 03-23-2022 End: 03-24-2022 ambulatory BRICK VENEER MAKER JANENE AICHHOLZ Facility:[facility] Start: 02-19-2022 End: 02-19-2022 ambulatory BRICK VENEER MAKER JANENE AICHHOLZ Facility:[facility] Start: 02-16-2022 End: 02-16-[address] MYRIAM PERRIN . Facility:[facility] Start: 02-15-2022 ambulatory BRICK VENEER MAKER JANENE AICHHOLZ Facil ity:[facility] Start: 01-25-2022 End: 01-25-2022 Patient encounter procedure Janene Lew Work Phone: [facility] Start: 01-25-2022 End: 01-25-2022 ambulatory Janene Moses Reddzehraz Work Phone: [facility] Work Phone: Start: 01-25-2022 Office outpatient vi sit 25 minutes Emma Bolivar [facility] Start: 01-25-2022 End: 01-26-2022 ambulatory BRICK VENEER MAKER JANENE KARENANGIERufus Facility:[facility] Start: 01-23-2022 End: 01-24-2022 ambulatory BRICK VENEER MAKER JANENE KARENANGIERufus Facility:[facility] Start: 01-12-2022 End: 01-13-2022 ambulatory BRICK VENEER MAKER JANENE KARENANGIEZ Facility:[facility] Start: 12-21-2021 End: 12-22-2021 ambulatory BRICK VENEER MAKER JANENE KARENANGIERufus Facility:[facility] Start: 12-06-2021 End: 12-06-2021 ambulatory Christian Hamilton Other [employer] Other Start: 12-06-2021 Office outpatient vi sit 15 minutes Christian Hamilton [facility] Start: 11-30-2021 End: 11-30-2021 ambulatory BRICK VENEER MAKER JANENE REDDTimmyANGIEZ Facility:[facility] Start: 11-28-2021 End: 11-29-2021 ambulatory BRICK VENEER MAKER JANENE REDDTimmyANGIERufus Facility:[facility] Start: 11-14-2021 End: 11-14-2021 ambulatory Janene Moses Reddjacek Work Phone: [facility] Work Phone: Start: 11-14-2021 End: 11-14-2021 Discharged Recurring Janene Louann Work Phone: [facility] [place] Start: 11-10-2021 End: 11-10-2021 ambulatory Christian Hamilton Other [employer] Other Start: 11-10-2021 Postop follow up vis it related to original px Christian Hamilton [facility] Start: 10-28-2021 End: 10-29-2021 ambulatory BRICK VENEER MAKER JANENE LEW Facility:[facility] Start: 10-02-2021 End: 10-02-2021 ambulatory BRICK VENEER MAKER JANENE LOUANN Facility:[facility] Start: 09-29-2021 End: 09-29-2021 ambulatory Christian Hamilton Other [employer] Other Start: 09-29-2021 Postop follow up vis it related to original px Christian Hamilton [facility] Start: 08-30-2021 End: 08-30-2021 ambulatory Christian Hamilton Other [employer] Other Start: 08-30-2021 Postop follow up vis it related to original px Christian Hamilton [facility] Start: 08-12-2021 Admission to [facility] Christian Hamilton [facility] Start: 08-12-2021 End: 08-12-2021 ambulatory Christian Hamilton Other [employer] Other Start: 08-23-2018 End: 08-25-2018 Evaluation and management of inpatient Peng Merino Facility:[facility] Procedures Date Procedure Procedure Detail Performing Clinician Start: 06-16-2024 Hemoglobin glycosyla joaquin a1c Marya Andrade Pettammy DO Work Phone: Start: 02-19-2024 Hemoglobin glycosyla joaquin a1c Marya Andrade Petznick DO Work Phone: Start: 12-18-2023 ALL CBC WITH AUTO DIFF Janene Lew RENTAL COUNTER CLERK Work Phone: Start: 11-01-2023 End: 11-01-2023 Colonoscopy Janene Lew Work Phone: Start: 09-28-2023 Mammography Janene mcfarland RENTAL COUNTER CLERK Work Phone: Start: 09-11-2023 History of percutane ous transluminal coronary angioplasty History of PTCA Janene Lew NP Work Phone: Start: 05-17-2023 Urine culture Janene espitia Work Phone: Start: 08-23-2018 FLUOROSCOPY OF MULTI PLE CORONARY ARTERIES USING OTH CONTRAST TK GODOY Start: 05-18-2016 Microscopic observat ion [Identifier] in Cervix by Cyto stain Janene Lew RENTAL COUNTER CLERK Work Phone: History of percutane ous transluminal coronary angioplasty History of PTCA Janene Lew Work Phone: Plan of Treatment Date Care Activity Detail Author Start: 10-31-2033 Screening for malignant neoplasm of colon [facility] Start: 09-05-2025 Glaucoma screening Diabetes: Retinopathy Screening [facility] Start: 10-20-2024 End: 10-20-2024 Patient encounter procedure 10/20/2024 10:30 AM EDT Office Visit [facility] [address] [place] [id number] Marya Castorena DO [address] [place] [address] [facility] Start: 09-27-2024 Screening for malignant neoplasm of breast Mammogram [facility] Start: 09-16-2024 Hemoglobin A1c measurement Diabetes: Hemoglobin A1C [facility] Start: 09-03-2024 End: 09-03-2024 Patient encounter procedure 09/03/2024 9:40 AM EDT Office Visit [facility] [address] [place] [phone] Janene Lew NP [address] [place] [address] [facility] Start: 07-15-2024 End: 07-15-2025 XR Ankle - left 3 Views XR ankle 3+ views left Imaging Routine Acute left ankle pain Expected: 07/15/2024, Expires: 07/15/2025 [facility] Work Phone: Comment on above: Expected: 07/15/2024, Expires: Start: 07-15-2024 End: 07-15-2025 XR Foot - left 3 Views XR foot 3+ views left Imaging Routine Acute foot pain, left Expected: 07/15/2024, Expires: 07/15/2025 [facility] Comment on above: Expected: 07/15/2024, Expires: Start: 06-19-2024 End: 06-19-2024 Patient encounter procedure 06/19/2024 10:15 AM EST Office Visit [facility] [address] [place] [id number] Marya Castorena, DO [address] [place] [address] [facility] [facility] Start: 06-16-2024 End: 06-16-2024 Patient encounter procedure 06/16/2024 9:15 AM EST Office Visit [facility] [address] [place] [id number] Marya Castorena, DO [address] [place] [address] Arrived [facility] [address] Comment on above: Arrived Start: 05-21-2024 Hemoglobin A1c measurement Diabetes: Hemoglobin A1C [facility] Start: 05-10-2024 Urine screening for protein Diabetes: Urine Protein Screening [facility] Start: 03-06-2024 End: 03-06-2025 25-hydroxyvitamin D3 [Mass/volume] in Serum or Plasma Vitamin D 25 hydroxy Lab Routine Vitamin D deficiency Expected: 03/06/2024 (Approximate), Expires: 03/06/2025 [facility] Comment on above: Expected: 03/06/2024 (Approximate), Expi res: 03/06/2025 Start: 03-06-2024 End: 03-06-2025 CBC W Auto Differential panel - Blood CBC and differential Lab Routine Coronary arteriosclerosis (CMS/HCC) Stage 3b chronic kidney disease (HCC) ([facility]/HCC) Expected: 03/06/2024 (Approximate), Expires: 03/06/2025 [facility] Work Phone: Comment on above: Expected: 03/06/2024 (Approximate), Expi res: 03/06/2025 Start: 03-06-2024 End: 03-06-2025 Cobalamin (Vitamin B12) [Mass/volume] in Serum or Plasma Vitamin B12 Lab Routine Vitamin B12 deficiency Expected: 03/06/2024 (Approximate), Expires: 03/06/2025 [facility] Comment on above: Expected: 03/06/2024 (Approximate), Expi [...] D deficiency Expected: 03/06/2024 (Approximate), Expires: 03/06/2025 [facility] Comment on above: Expected: 03/06/2024 (Approximate), Expi res: 03/06/2025 Start: 03-06-2024 End: 03-06-2025 Ferritin [Mass/volume] in Serum or Plasma Ferritin Lab Routine H/O bariatric surgery Expected: 03/06/2024 (Approximate), Expires: 03/06/2025 [facility] Comment on above: Expected: 03/06/2024 (Approximate), Expi res: 03/06/2025 Start: 03-06-2024 End: 03-06-2025 Iron and Iron binding capacity panel - Serum or Plasma Iron level Lab Routine H/O bariatric surgery Expected: 03/06/2024 (Approximate), Expires: 03/06/2025 [facility] Comment on above: Expected: 03/06/2024 (Approximate), Expi res: 03/06/2025 Start: 03-06-2024 End: 03-06-2025 Lipid 1996 panel - Serum or Plasma Lipid panel Lab Routine Coronary arteriosclerosis (CMS/HCC) Expected: 03/06/2024 (Approximate), Expires: 03/06/2025 [facility] Comment on above: Expected: 03/06/2024 (Approximate), Expi res: 03/06/2025 Start: 03-06-2024 End: 03-06-2025 Microalbumin/Creatinine panel in random Urine Microalbumin / creatinine, urine ratio Lab Routine Primary hypertension (CMS/HCC) Stage 3b chronic kidney disease (HCC) (CMS/HCC) Expected: 03/06/2024 (Approximate), Expires: 03/06/2025 [facility] Comment on above: Expected: 03/06/2024 (Approximate), Expi res: 03/06/2025 Start: 03-06-2024 End: 03-06-2025 Urinalysis complete panel - Urine Urinalysis with reflex microscopic (clean catch) Lab Routine Primary hypertension (CMS/HCC) Stage 3b chronic kidney disease (HCC) (CMS/HCC) Expected: 03/06/2024 (Approximate), Expires: 03/06/2025 [facility] Comment on above: Expected: 03/06/2024 (Approximate), Expi res: 03/06/2025 Start: 03-06-2024 End: 03-06-2024 Patient encounter procedure [facility] Comment on above: Spinal stenosis of [...] procedure 02/19/2024 9:30 AM EST Office Visit [facility] [address] [place] [phone] Marya Castorena, DO [address] [place] [address] [facility] [address] Start: 02-14-2024 Influenza vaccination Influenza Vaccine (#1) [facility] Comment on above: Postponed from 12/16/2023 (Patient Does Not Have Time) Start: 12-25-2023 Hemoglobin A1c measurement Diabetes: Hemoglobin A1C [facility] Start: 12-05-2023 End: 12-04-2024 Basic metabolic 1998 panel - Serum or Plasma Basic metabolic panel Lab Routine Left lower quadrant abdominal pain Expected: 12/05/2023 (Approximate), Expires: 12/04/2024 [facility] Comment on above: Expected: 12/05/2023 (Approximate), Expi res: 12/04/2024 Start: 12-05-2023 End: 12-04-2024 CBC W Auto Differential panel - Blood CBC and differential Lab Routine Left lower quadrant abdominal pain Expected: 12/05/2023 (Approximate), Expires: 12/04/2024 [facility] Comment on above: Expected: 12/05/2023 (Approximate), Expi res: 12/04/2024 Start: 12-05-2023 End: 12-04-2024 XR Abdomen Single view XR ABDOMEN 2 VIEW Imaging Routine Left lower quadrant abdominal pain Expected: 12/05/2023, Expires: 12/04/2024 [facility] Work Phone: Comment on above: Expected: 12/05/2023, Expires: Start: 12-05-2023 End: 12-05-2023 Patient encounter procedure 12/05/2023 8:40 AM EDT Office Visit [facility] [address] [place] [address] Janene Lew, RENTAL COUNTER CLERK [address] [place] [phone] Morbid (severe) obesity due to excess calories (CMS/[facility]); Body mass index (BMI) 45.0-49.9, adult ([facility]/HCC) [facility] Comment on above: Morbid (severe) obesity due to excess ca lories (CMS/HCC); Body mass index (BMI) 45.0-49.9, adult (CMS/HCC) Start: 11-01-2023 [facility] Start: 10-02-2023 [facility] Start: 10-01-2023 Referral to mold yard worker [facility] Start: 10-01-2023 Hospital admission [facility] Start: 05-17-2023 Bacteria identified in Urine by Culture [facility] Start: 05-18-2019 Screening for malignant neoplasm of cervix Pap Smear [facility] Start: 2000 Screening for malignant neoplasm of cervix HPV/Cotest [facility] Start: 1970 Screening for malignant neoplasm of colon [facility] Patient Education [facility] Work Phone: Patient referral [facility] Work Phone: Renal function 1999 panel - Serum or Plasma [facility] Renal function 1999 panel - Serum or Plasma [facility] Immunizations Immunization Date Immunization Notes Care Provider Fa [facility] 01-24-2024 SARS-COV-2 (COVID-19 ) vaccine, mRNA, spike protein, LNP, PF, saravanan-sucrose, 30 mcg/0.3 mL Marya Petznick DO Work Phone: [facility] 01-24-2024 Seasonal, trivalent, recombinant, injectable influenza vaccine, preservative free Marya Petznick DO Work Phone: [facility] 02-09-2023 influenza, injectabl e, quadrivalent, preservative free Janene Louann RENTAL COUNTER CLERK Work Phone: [facility] 02-09-2023 influenza virus vaccine, unspecified formulation Janene Louann RENTAL COUNTER CLERK Work Phone: [facility] 07-03-2022 hepatitis A and hepatitis B vaccine Janene Louann RENTAL COUNTER CLERK Work Phone: [facility] 07-03-2022 zoster vaccine recombinant Janene Aichholz RENTAL COUNTER CLERK Work Phone: [facility] 01-20-2022 hepatitis A and hepatitis B vaccine Janene Aichholz RENTAL COUNTER CLERK Work Phone: [facility] 12-19-2021 hepatitis A and hepatitis B vaccine Janene Aichholz RENTAL COUNTER CLERK Work Phone: [facility] 12-19-2021 influenza, injectabl e, quadrivalent, preservative free Janene Aichholz RENTAL COUNTER CLERK Work Phone: [facility] 12-19-2021 tetanus toxoid, redu drew diphtheria toxoid, and acellular pertussis vaccine, adsorbed Janene Aichholz RENTAL COUNTER CLERK Work Phone: [facility] 12-19-2021 zoster vaccine recombinant Janene Aichholz RENTAL COUNTER CLERK Work Phone: [facility] 05-17-2021 COVID-19 mRNA, Comirnaty (Pfizer) Janene Aichholz Work Phone: [facility] 05-16-2021 Pfizer Purple Cap SARS-CoV-2 Vaccination Janene Aichholz RENTAL COUNTER CLERK Work Phone: [facility] 09-06-2020 COVID-19 mRNA, Comirnaty (Pfizer) Janene Aichholz Work Phone: [facility] 08-17-2020 Pfizer Purple Cap SARS-CoV-2 Vaccination Janene Aichholz RENTAL COUNTER CLERK Work Phone: [facility] 08-16-2020 COVID-19 mRNA, Comirnaty (Pfizer) Janene Aichholz Work Phone: [facility] 03-10-2020 influenza, injectabl e, quadrivalent, preservative free Janene Aichholz RENTAL COUNTER CLERK Work Phone: [facility] 03-10-2020 pneumococcal polysaccharide vaccine, 23 valent Janene Aichholz RENTAL COUNTER CLERK Work Phone: [facility] 02-16-2020 influenza, seasonal, injectable Janene Aichholz RENTAL COUNTER CLERK Work Phone: [facility] 02-16-2020 pneumococcal polysaccharide vaccine, 23 valent Janene Aichholz RENTAL COUNTER CLERK Work Phone: [facility] 01-31-2019 influenza, injectabl e, quadrivalent, preservative free Janene Aichholz Work Phone: [facility] 01-31-2019 influenza, injectabl e, quadrivalent, contains preservative Christian Hamilton Other [facility] [employer] Other 03-15-2018 influenza, injectabl e, quadrivalent, preservative free Janene Aichholz Work Phone: [facility] 03-15-2018 influenza, injectabl e, quadrivalent, contains preservative Christian Hamilton Other [facility] [employer] Other 02-03-2017 influenza, injectabl e, quadrivalent, preservative free Janene Aichholz RENTAL COUNTER CLERK Work Phone: [facility] 04-16-2011 pneumococcal conjuga te vaccine, 13 valent Janene Aichholz RENTAL COUNTER CLERK Work Phone: [facility] 01-14-1997 pneumococcal polysaccharide vaccine, 23 valent Janene Aichholz RENTAL COUNTER CLERK Work Phone: [facility] Payers Date Payer Category Payer [facility] [id number] 2023 Private Health Insurance [facility] [id number] 2023 Unknown [id number] 2022 Self-pay [id number] 2022 Medicaid [id number] 2.16.840.1.937821.19 2022 Private Health Insurance [id number] 2.16.840.1.795913.19 2022 Private Health Insurance 2022 Unknown 2010 Self-pay [id number] 1970 Unknown [id number] 2.16.840.1.545566.3.579.2. 647 1970 Unknown [id number] 2.16.840.1.898980.3.579.2. 593 1970 Unknown [id number] 2.16.840.1.301717.3.579.2. 593 1970 Unknown [id number] 2.16.840.1.737363.3.579.2. 593 1970 Unknown [id number] 2.16.840.1.324229.3.579.2. 593 1970 Unknown [id number] 2.16.840.1.906685.3.579.2. 593 1970 Unknown [id number] 2.16.840.1.883391.3.579.2. 593 1970 Unknown [id number] 2.16.840.1.716516.3.579.2. 593 1970 Unknown [id number] 2.16.840.1.883602.3.579.2. 593 1970 Unknown [id number] 2.16.840.1.463353.3.579.2. 593 1970 Unknown [id number] 2.16.840.1.696655.3.579.2. 593 1970 Unknown [id number] 2.16.840.1.985690.3.579.2. 593 1970 Unknown [id number] 2.16.840.1.731913.3.579.2. 593 1970 Unknown [id number] 2.16.840.1.226865.3.579.2. 593 1970 Unknown [id number] 2.16.840.1.133697.3.579.2. 593 1970 Unknown [id number] 2.16.840.1.789138.3.579.2. 593 1970 Unknown [id number] 2.16.840.1.980235.3.579.2. 593 1970 Unknown [id number] 2.16.840.1.387323.3.579.2. 593 1970 Unknown [id number] 2.16.840.1.000965.3.579.2. 718 1970 Unknown [id number] 2.16.840.1.546331.3.579.2. 196 1970 Unknown [id number] 2.16.840.1.514570.3.579.2. 196 1970 Unknown [id number] 2.16.840.1.883390.3.579.2. 196 1970 Unknown [id number] 2.16.840.1.643596.3.579.2. 196 1970 Unknown [id number] 2.16.840.1.487027.3.579.2. 196 1970 Unknown [id number] 2.16.840.1.499382.3.579.2. 1259 1970 Unknown [id number] 2.16.840.1.091286.3.579.2. 1259 1970 Unknown [id number] 2.16.840.1.164139.3.579.2. 1259 1970 Unknown [id number] 2.16.840.1.860306.3.579.2. 1258 1970 Unknown [id number] 2.16.840.1.348710.3.579.2. 1258 1970 Unknown [id number] 2.16.840.1.147755.3.579.2. 1258 1970 Unknown [id number] 2.16.840.1.543583.3.579.2. 1258 1970 Unknown [id number] 2.16.840.1.701789.3.579.2. 1258 1970 Unknown [id number] 2.16.840.1.492548.3.579.2. 1258 1970 Unknown [id number] 2.16.840.1.024587.3.579.2. 1258 1970 Unknown [id number] 2.16.840.1.266496.3.579.2. 1258 1970 Unknown [id number] 2.16.840.1.777157.3.579.2. 1258 1970 Unknown [id number] 2.16.840.1.088836.3.579.2. 1258 1970 Unknown [id number] 2.16.840.1.485049.3.579.2. 1258 1970 Unknown [id number] 2.16.840.1.817970.3.579.2. 1258 1970 Unknown [id number] 2.16.840.1.592930.3.579.2. 1258 1959 Private Health Insurance [id number] 2.16.840.1.977018.19 1959 Unknown [id number] 2.16.840.1.347741.19 Medicaid [place] Medicaid [id number] [id number] Unknown [employer]re[employer] BC/BS [id number] Unknown [id number] 2.16.840.1.116280.3.579.2. 531 Unknown [id number] 2.16.840.1.220652.3.579.2. 531 Unknown [id number] 2.16.840.1.981704.3.579.2. 531 Unknown [id number] 2.16.840.1.023250.3.579.2. 531 Unknown [id number] 2.16.840.1.807926.3.579.2. 531 Unknown [id number] 2.16.840.1.503733.3.579.2. 531 Social History Date Type Detail Facility Unknown if ever smoked [employer] Other Start: 05-02-2023 End: 06-16-2024 [facility] Assigned At [facility] Start: 08-12-2021 End: 09-20-2023 Tobacco smoking status MEIS Never smoked tobacco (finding) [facility] Start: 1970 Sex Assigned At Female F [facility] Start: 09-20-2023 Tobacco use and exposure [...] got money to buy more. Sometimes true [facility] Start: 05-01-2023 Alcohol Comment caffeine: coff ee, soda/pop [facility] Start: 1970 Sex assigned at Not on file [facility] NEGATED: Highlighted rowStart: NINF History of tobacco use Passive smoker [facility] Medical Equipment Procedure Code Equipment Code Equipment Origin al Text Equipment Identifier Dates Once a day Use a s instructed [id number] Start: 07-02-2023 End: 07-01-2024 Fsbs bid [id number] Start: 11-19-2023 Goals Date Patient Goal Desired Activity /State Functional Status Date Assessment Result Facility 10-02-2023 Functional status Patient at Baseline [facility] Work Phone: Mental Status Date Assessment Result Facility 10-02-2023 Cognitive function Cognitive Sta tus Patient at Baseline [facility] Work Phone: Clinical Notes 08-30-2021 to 07-15-2024 Janene Lew NP - 07/15/2024 12:19 PM Megan Castorena, - 06/16/2024 9:36 AM Deepti Castorena, DO - 06/16/2024 9:15 AM Souleymane Lew NP - 03/06/2024 9:59 AM ESTPatient Instructions Note Date & Type Note Facility 07-15-2024 History of Present illness Narrative Contact provider, had a fall the other day on porch, now left ankle and foot pain, would like an xray documented in this encounter [facility] 06-16-2024 History of Present illness Narrative Associated [...] (BMI) of 38.0 to 38.9 in adult (CMS/HCC) Left lower quadrant abdominal pain Type 2 diabetes mellitus with other circulatory complications (CMS/HCC) Acute non-recurrent pansinusitis Social History Tobacco Use [...] mg Weekly SC (7.5 MG/0.5ML SOAJ) Labs [facility] [place] HEMOGLOBIN A1C/HEMOGLOBIN.TOTAL:MFR:PT:BLD: QN: 5.5 [...] without long-term current use of insulin (HCC) ([facility]) Relevant Orders POCT glycosylated hemoglobin (Hb A1C) docked device (Completed) Class 2 severe obesity due to excess calories with serious comorbidity and body mass index (BMI) of 38.0 to 38.9 in adult ([facility]) - Primary Type 2 diabetes mellitus with other circulatory complications ([facility]) During the appointment today all pertinent labs, [...] crush or chew.. LANCETS (ONETOUCH DELICA PLUS [id number]) MISC Fsbs bid METOPROLOL SUCCINATE XL (TOPROL-XL) [...] the patient today. documented in this encounter [facility] 03-06-2024 History of Present illness Narrative Associated [...] problems. Hypertensive end-organ damage includes kidney disease, CAD/MD and heart failure. Identifiable causes of hypertension [...] mononitrate ER (IMDUR) 30 mg, Daily Lancets (OneTouch Delica Plus [id number]) [facility] [place] [place] Fsbs bid metoprolol succinate XL (TOPROL-XL) 12.5 [...] pain Clostridioides difficile diarrhea 07/02/2023 Coronary arteriosclerosis ([facility]) 04/30/2023 COVID-19 Degenerative disc disease, lumbar 07/02/2023 Depression ([facility]) 04/30/2023 Diabetes mellitus, type 2 (CMS/HCC) 04/30/2023 Dyspnea 07/02/2023 Elevated liver enzymes 07/02/2023 Family history of cancer Fatigue GERD (gastroesophageal reflux disease) 04/30/2023 H/O bariatric surgery 07/02/2023 Headache 07/02/2023 History of fusion of cervical spine Hyperkalemia Hyperlipidemia ([facility]) 04/30/2023 Hypertension ([facility]) 04/30/2023 Hypomagnesemia 04/30/2023 Insomnia 07/02/2023 Irritable bowel syndrome with diarrhea 07/02/2023 Lower extremity edema 04/30/2023 Lumbar disc herniation 07/02/2023 Microscopic hematuria 04/30/2023 Migraine headache ([facility]) 04/30/2023 Myalgia Nephrolithiasis 07/02/2023 URIEL (obstructive sleep apnea) 04/30/2023 [id number] condition Restless leg syndrome Seasonal allergies 04/30/2023 Spinal stenosis of lumbar region at multiple levels 04/30/2023 Spinal stenosis of thoracolumbar region 04/30/2023 Stage 3 chronic kidney disease due to type 2 diabetes mellitus (HCC) ([facility]) 04/30/2023 Swelling of both lower extremities 04/30/2023 [...] mgmt for oral medications and treatment plan [facility] pain mgmt, ?? Possible spinal cord stimulator Will complete her FMLA URIEL (obstructive sleep apnea) Not using this, mask broke and they will give new mask Hypertension (CMS/HCC) - Primary Please check blood pressure daily and record DASH diet Limit caffeine Take medication as directed Contact office if chest pain, pressure, dizziness, shortness of breath, swelling legs Recommend slow position changes Continue current meds Cont ASA, statin, b seema Relevant Orders Comprehensive metabolic panel Urinalysis with reflex microscopic (clean catch) Microalbumin / creatinine, urine ratio Coronary arteriosclerosis (CMS/HCC) Relevant Orders CBC and differential Comprehensive metabolic panel Lipid panel RESOLVED: Swelling of both lower extremities Lower extremity edema Continues to take lasix as directed Compression stockings Limiting sodium intake Elevated legs above level of heart as much as possible Relevant Orders Comprehensive metabolic panel Type 2 diabetes mellitus with stage 3a chronic kidney disease, without long-term current use of insulin ([facility]) ([facility] Check blood sugars daily, notify if <70 [...] Relevant Orders Iron level Ferritin Bipolar disorder ([facility] Continue with psych for management of her mental health Generalized anxiety disorder ([facility] Continue with psych for management of symptoms and meds Stage 3b chronic kidney disease (HCC) ([facility]) Is established with nephrology for mgmt/monitoring Continue [...] (BMI) of 45.0 to 49.9 in adult ([facility]) Has lost approx 64 pounds since 07/07 [...] MG tablet Associated Problem(s): Generalized anxiety disorder ([facility]) Continue with psych for management of symptoms and meds Associated Problem(s): Bipolar disorder ([facility]) Continue with psych for management of her mental health Associated Problem(s): Class 3 severe obesity due to excess calories with serious comorbidity and body mass index (BMI) of 45.0 to 49.9 in adult ([facility]) Has lost approx 64 pounds since 07/07 [...] disease, without long-term current use of insulin ([facility]) ([facility]) Check blood sugars daily, notify if <70 [...] Problem(s): Stage 3b chronic kidney disease (HCC) (CMS/HCC) Is established with nephrology for mgmt/monitoring Continue to keep blood pressure and DM at goal Associated Problem(s): Hypertension (CMS/HCC) Please check blood pressure daily and record [...] mgmt for oral medications and treatment plan [facility] pain mgmt, ?? Possible spinal cord stimulator Will complete her FMLA documented in this encounter [facility] 03-06-2024 Instructions Janene Lew NP - 03/06/2024 9:20 AM EST Call CPAP company: see if they need a compliance report, they should be able to down load that for you Keep up great work with diabetes and weight loss documented in this encounter [facility] 02-19-2024 History of Present illness Narrative Associated Problem(s): Type 2 diabetes mellitus with other circulatory complications ([facility]) During the appointment today all pertinent labs, [...] disease, without long-term current use of insulin ([facility]) (CMS/[facility]) Seasonal allergies Migraine headache (CMS/HCC) Hypomagnesemia Hyperlipidemia ([facility]/HCC) Depression ([facility]) Encounter for screening mammogram for malignant neoplasm of breast Colon cancer screening Heel pain, bilateral Insomnia Dyspnea Irritable bowel syndrome with diarrhea H/O bariatric surgery Abdominal wall hernia Nephrolithiasis Lumbar disc herniation Degenerative disc disease, lumbar Elevated liver enzymes Bipolar disorder (CMS/HCC) Depressive disorder ([facility]/HCC) Generalized anxiety disorder ([facility]/HCC) Chronic diastolic heart failure ([facility]/HCC) History of anuria E-coli UTI Muscle spasm Stage 3b chronic kidney disease (HCC) ([facility]) Displacement of lumbar intervertebral disc with radiculopathy Hypertensive nephropathy ([facility]) History of PTCA Headache, tension-type Declining functional status History of colon polyps Dental infection Antibiotic-induced yeast infection Restless leg syndrome Acute kidney injury superimposed on CKD (CMS/[facility]) Hyperkalemia Hyperuricemia Iron deficiency Vitamin B12 deficiency Vitamin D deficiency Anemia of renal disease Adenomatous polyp of cecum Diverticulosis large intestine w/o perforation or abscess w/o bleeding Class 3 severe obesity due to excess calories with serious comorbidity and body mass index (BMI) of 45.0 to 49.9 in adult ([facility]) Left lower quadrant abdominal pain Type 2 diabetes mellitus with other circulatory complications ([facility]) Social History Tobacco Use Smoking status: Never [...] Rash Other Reaction(s): other, Unknown Synopsis [employer] 02/19/2024 02/10/2024 00:00 01/16/2024 23:59 Antidiabetic medications [...] disease, without long-term current use of insulin ([facility]) ([facility]) Class 3 severe obesity due to excess calories with serious comorbidity and body mass index (BMI) of 45.0 to 49.9 in adult ([facility]) Type 2 diabetes mellitus with other circulatory complications ([facility]) - Primary During the appointment today all [...] morning. Do not crush or chew.. LANCETS ([employer] DELPolySpot PLUS [id number]) MISC Fsbs bid METOPROLOL SUCCINATE XL (TOPROL-XL) [...] the patient today. documented in this encounter [facility] 12-18-2023 Note [facility] Cardiology Clinic Note Chief Complaint: [...] S2 present. R (more content not included)... [facility] 12-05-2023 History of Present illness Narrative [...] crush or chew. Lancets (OneTouch Delica Plus [id number]) [facility] [place] Fsbs bid metoprolol succinate XL (TOPROL-XL) 12.5 [...] pain Clostridioides difficile diarrhea 07/02/2023 Coronary arteriosclerosis ([facility]/HCC) 04/30/2023 COVID-19 Degenerative disc disease, lumbar 07/02/2023 Depression ([facility]) 04/30/2023 Diabetes mellitus, type 2 ([facility]) 04/30/2023 Dyspnea 07/02/2023 Elevated liver enzymes 07/02/2023 Family history of cancer Fatigue GERD (gastroesophageal reflux disease) 04/30/2023 H/O bariatric surgery 07/02/2023 Headache 07/02/2023 History of fusion of cervical spine Hyperkalemia Hyperlipidemia ([facility]/HCC) 04/30/2023 Hypertension ([facility]/HCC) 04/30/2023 Hypomagnesemia 04/30/2023 Insomnia 07/02/2023 Irritable bowel syndrome with diarrhea 07/02/2023 Lower extremity edema 04/30/2023 Lumbar disc herniation 07/02/2023 Microscopic hematuria 04/30/2023 Migraine headache (CMS/HCC) 04/30/2023 Myalgia Nephrolithiasis 07/02/2023 URIEL (obstructive sleep apnea) 04/30/2023 [id number] condition Restless leg syndrome Seasonal allergies 04/30/2023 Spinal stenosis of lumbar region at multiple levels 04/30/2023 Spinal stenosis of thoracolumbar region 04/30/2023 Stage 3 chronic kidney disease due to type 2 diabetes mellitus (HCC) ([facility]) 04/30/2023 Swelling of both lower extremities 04/30/2023 [...] Visit Body mass index (BMI) 45.0-49.9, adult ([facility]) Stage 3b chronic kidney disease (HCC) (CMS/HCC) [...] CBC and differential documented in this encounter [facility] 09-11-2023 Note [facility] Cardiology Clinic Note Chief Complaint: [...] HEAD: atraumatic, normocephal (more content not included)... [facility] 03-14-2023 Note [facility] Cardiology Clinic Note Chief Complaint: [...] Denies chest pain and palpitations. [facility] [...] right ventricular systo (more content not included)... [facility] 08-14-2022 Evaluation note Encounter Date Diagnosis [...] - G89.29) Proceed with current treatment plan [employer] Other 03-20-2023 Evaluation note* Encounter Date Diagnosis [...] negative findings were considered in medical decision-making. [employer] Other 03-11-2023 Hospital Discharge instructions Additional Instructions [...] your family doctor for recheck or Dr. Hamilton Return to the ER for more severe pain weakness in your leg loss of bladder bowel control high fever or any other [facility] Work Phone: [phone]) 172-180801-27-2023 Evaluation note* Encounter Date Diagnosis Assessment Notes [...] [facility] [employer] Other 01-10-2023 Evaluation note* Encounter Date Diagnosis [...] obesity (ICD-10 - E66.01) Encouraged weight loss [employer] Other 10-12-2022 Evaluation note* Encounter Date Diagnosis [...] strap. A prescription was sent to the [employer] for new supplies throughout the year, as [...] sleepiness, or poor response to treatment. . [employer] Other 08-23-2022 Evaluation note* Encounter Date Diagnosis [...] of thoracolumbar intervertebral disc (ICD-10 - M51.25) [employer] Other 07-28-2022 Evaluation note* Encounter Date Diagnosis [...] a med check and PT follow up [employer] Other 06-16-2022 Evaluation note* Encounter Date Diagnosis [...] labor Sep, Thoracic myelopathy (ICD-10 - M47.14) [employer] Other 05-17-2022 Evaluation note* Encounter Date Diagnosis [...] Overall she is making a good recovery [employer] Other evaluation noteNo InformationNort [employer] Other evaluation noteNo assessment information available [facility] Work Phone: Evaluation note* Diagnosis Onset [...] disease reso lved Hypertensive nephropathy res olved [facility] Work Phone: Evaluation note* Diagnosis Onset [...] D deficiency acute Hypertensive nephropathy res olved [facility] Work Phone: Evaluation note* Diagnosis Primary hypertension ([facility]/HCC)- Primary Unspecified essential hypertension Gastroesophageal reflux disease, unspecified whether esophagitis present Microscopic hematuria Lower extremity edema Edema Type 2 diabetes mellitus without complication, without long-term current use of insulin ([facility]) Stage 3 chronic kidney disease due to type 2 diabetes mellitus (HCC) ([facility]) Mixed hyperlipidemia ([facility]) Mixed hyperlipidemia Migraine without aura and without status migrainosus, not intractable ([facility]) Encounter for screening mammogram for malignant neoplasm of breast Colon cancer screening Special screening for malignant neoplasms, colon BMI 50.0-59.9, adult ([facility]) Heel pain, bilateral Type 2 diabetes mellitus without complication, without long-term current use of insulin ([facility])- Primary History of anuria Stage 3 chronic kidney disease due to type 2 diabetes mellitus (HCC) ([facility]) BMI 50.0-59.9, adult ([facility]) URIEL (obstructive sleep apnea) Obstructive sleep apnea (adult) (pediatric) Primary hypertension ([facility]) Unspecified essential hypertension Chronic diastolic heart failure ([facility]) Chronic diastolic heart failure Depression, unspecified depression type ([facility]) Type 2 diabetes mellitus without complication, without long-term current use of insulin ([facility])- Primary Stage 3 chronic kidney disease due to type 2 diabetes mellitus (HCC) ([facility]) BMI 50.0-59.9, adult ([facility]) Lower extremity edema Edema Dental infection- Primary Type 2 diabetes mellitus with stage 3 chronic kidney disease, without long-term current use of insulin, unspecified whether stage 3a or 3b CKD (HCC) ([facility])- Primary Bipolar affective disorder, remission status unspecified ([facility]) Restless leg syndrome Restless legs syndrome (RLS) URIEL (obstructive sleep apnea) Obstructive sleep apnea (adult) (pediatric) Primary hypertension ([facility]) Unspecified essential hypertension Chronic diastolic heart failure ([facility]) Chronic diastolic heart failure Stage 3 chronic kidney disease due to type 2 diabetes mellitus (HCC) ([facility]) Seasonal allergies Allergic rhinitis, cause unspecified BMI 50.0-59.9, adult ([facility]) Type 2 diabetes mellitus with stage 4 chronic kidney disease, without long-term current use of insulin ([facility])- Primary Type 2 diabetes mellitus without complication, without long-term current use of insulin ([facility]) Left lower quadrant abdominal pain- Primary Morbid (severe) obesity due to excess calories ([facility]) Body mass index (BMI) 45.0-49.9, adult ([facility]) Restless leg syndrome Restless legs syndrome (RLS) Stage 3b chronic kidney disease (HCC) ([facility]) Type 2 diabetes mellitus with other circulatory complications ([facility])- Primary Type 2 diabetes mellitus with stage 4 chronic kidney disease, without long-term current use of insulin ([facility]) Type 2 diabetes mellitus with stage 3a chronic kidney disease, without long-term current use of insulin (HCC) ([facility]) Class 3 severe obesity due to excess calories with serious comorbidity and body mass index (BMI) of 45.0 to 49.9 in adult ([facility]) documented in this encounter [facility] HealthcareEvaluation note* Diagnosis Primary hypertension ([facility])- Primary Unspecified essential hypertension Gastroesophageal reflux disease, unspecified whether esophagitis present Microscopic hematuria Lower extremity edema Edema Type 2 diabetes mellitus without complication, without long-term current use of insulin ([facility]) Stage 3 chronic kidney disease due to type 2 diabetes mellitus (HCC) ([facility]) Mixed hyperlipidemia ([facility]) Mixed hyperlipidemia Migraine without aura and without status migrainosus, not intractable ([facility]) Encounter for screening mammogram for malignant neoplasm of breast Colon cancer screening Special screening for malignant neoplasms, colon BMI 50.0-59.9, adult ([facility]) Heel pain, bilateral Type 2 diabetes mellitus without complication, without long-term current use of insulin ([facility])- Primary History of anuria Stage 3 chronic kidney disease due to type 2 diabetes mellitus (HCC) ([facility]) BMI 50.0-59.9, adult ([facility]) URIEL (obstructive sleep apnea) Obstructive sleep apnea (adult) (pediatric) Primary hypertension ([facility]) Unspecified essential hypertension Chronic diastolic heart failure ([facility]) Chronic diastolic heart failure Depression, unspecified depression type ([facility]) Type 2 diabetes mellitus without complication, without long-term current use of insulin ([facility])- Primary Stage 3 chronic kidney disease due to type 2 diabetes mellitus (HCC) ([facility]) BMI 50.0-59.9, adult ([facility]) Lower extremity edema Edema Dental infection- Primary Type 2 diabetes mellitus with stage 3 chronic kidney disease, without long-term current use of insulin, unspecified whether stage 3a or 3b CKD (HCC) ([facility])- Primary Bipolar affective disorder, remission status unspecified ([facility]) Restless leg syndrome Restless legs syndrome (RLS) URIEL (obstructive sleep apnea) Obstructive sleep apnea (adult) (pediatric) Primary hypertension ([facility]) Unspecified essential hypertension Chronic diastolic heart failure ([facility]) Chronic diastolic heart failure Stage 3 chronic kidney disease due to type 2 diabetes mellitus (HCC) ([facility]) Seasonal allergies Allergic rhinitis, cause unspecified BMI 50.0-59.9, adult ([facility]) Type 2 diabetes mellitus with stage 4 chronic kidney disease, without long-term current use of insulin ([facility])- Primary Type 2 diabetes mellitus without complication, without long-term current use of insulin ([facility]) Left lower quadrant abdominal pain- Primary Morbid (severe) obesity due to excess calories ([facility]) Body mass index (BMI) 45.0-49.9, adult ([facility]) Restless leg syndrome Restless legs syndrome (RLS) Stage 3b chronic kidney disease (HCC) [place] Type 2 diabetes mellitus with other circulatory complications [place] Primary Type 2 diabetes mellitus with stage 4 chronic kidney disease, without long-term current use of insulin ([facility] Type 2 diabetes mellitus with stage 3a chronic kidney disease, without long-term current use of insulin (HCC) ([facility] Class 3 severe obesity due to excess calories with serious comorbidity and body mass index (BMI) of 45.0 to 49.9 in adult ([facility]) Muscle spasm Spasm of muscle documented in this encounter [facility] Healthcare[facility] note* Diagnosis Primary hypertension ([facility])- Primary Unspecified essential hypertension Gastroesophageal reflux disease, unspecified whether esophagitis present Microscopic hematuria Lower extremity edema Edema Type 2 diabetes mellitus without complication, without long-term current use of insulin ([facility]) Stage 3 chronic kidney disease due to type 2 diabetes mellitus (HCC) ([facility] Mixed hyperlipidemia ([facility]) Mixed hyperlipidemia Migraine without aura and without status migrainosus, not intractable ([facility]) Encounter for screening mammogram for malignant neoplasm of breast Colon cancer screening Special screening for malignant neoplasms, colon BMI 50.0-59.9, adult [place] Heel pain, bilateral Type 2 diabetes mellitus without complication, without long-term current use of insulin ([facility] Primary History of anuria Stage 3 chronic kidney disease due to type 2 diabetes mellitus ([facility]) ([facility] BMI 50.0-59.9, adult ([facility] URIEL (obstructive sleep apnea) Obstructive sleep apnea (adult) (pediatric) Primary hypertension ([facility]) Unspecified essential hypertension Chronic diastolic heart failure ([facility]) Chronic diastolic heart failure Depression, unspecified depression type ([facility] Type 2 diabetes mellitus without complication, without long-term current use of insulin ([facility] Primary Stage 3 chronic kidney disease due to type 2 diabetes mellitus (HCC) ([facility] BMI 50.0-59.9, adult ([facility]) Lower extremity edema Edema Dental infection- Primary Type 2 diabetes mellitus with stage 3 chronic kidney disease, without long-term current use of insulin, unspecified whether stage 3a or 3b CKD (HCC) ([facility] Primary Bipolar affective disorder, remission status unspecified ([facility]) Restless leg syndrome Restless legs syndrome (RLS) URIEL (obstructive sleep apnea) Obstructive sleep apnea (adult) (pediatric) Primary hypertension ([facility]) Unspecified essential hypertension Chronic diastolic heart failure ([facility]) Chronic diastolic heart failure Stage 3 chronic kidney disease due to type 2 diabetes mellitus (HCC) ([facility] Seasonal allergies Allergic rhinitis, cause unspecified BMI 50.0-59.9, adult ([facility] Type 2 diabetes mellitus with stage 4 chronic kidney disease, without long-term current use of insulin ([facility] Primary Type 2 diabetes mellitus without complication, without long-term current use of insulin ([facility]) Left lower quadrant abdominal pain- Primary Morbid (severe) obesity due to excess calories ([facility]) Body mass index (BMI) 45.0-49.9, adult ([facility]) Restless leg syndrome Restless legs syndrome (RLS) Stage 3b chronic kidney disease (HCC) ([facility]) Type 2 diabetes mellitus with other circulatory complications ([facility])- Primary Type 2 diabetes mellitus with stage 4 chronic kidney disease, without long-term current use of insulin ([facility]) Type 2 diabetes mellitus with stage 3a chronic kidney disease, without long-term current use of insulin (HCC) ([facility]) Class 3 severe obesity due to excess calories with serious comorbidity and body mass index (BMI) of 45.0 to 49.9 in adult ([facility]) Primary hypertension ([facility])- Primary Unspecified essential hypertension Spinal stenosis of lumbar region at multiple levels Restless leg syndrome Restless legs syndrome (RLS) URIEL (obstructive sleep apnea) Obstructive sleep apnea (adult) (pediatric) Coronary arteriosclerosis ([facility]) Coronary atherosclerosis of unspecified type of vessel, squaxin or graft Stage 3b chronic kidney disease (HCC) ([facility]) Swelling of both lower extremities Lower extremity edema Edema Type 2 diabetes mellitus with stage 3a chronic kidney disease, without long-term current use of insulin (HCC) ([facility]) Class 3 severe obesity due to excess calories with serious comorbidity and body mass index (BMI) of 45.0 to 49.9 in adult ([facility]) Bipolar affective disorder, remission status unspecified ([facility]) Generalized anxiety disorder ([facility]) Generalized anxiety disorder Vitamin D deficiency Vitamin B12 deficiency Other B-complex deficiencies H/O bariatric surgery Acute non-recurrent pansinusitis documented in this encounter [facility]* Diagnosis Primary hypertension ([facility])- Primary Unspecified essential hypertension Gastroesophageal reflux disease, unspecified whether esophagitis present Microscopic hematuria Lower extremity edema Edema Type 2 diabetes mellitus without complication, without long-term current use of insulin ([facility]) Stage 3 chronic kidney disease due to type 2 diabetes mellitus (HCC) ([facility]) Mixed hyperlipidemia ([facility]) Mixed hyperlipidemia Migraine without aura and without status migrainosus, not intractable ([facility]) Encounter for screening mammogram for malignant neoplasm of breast Colon cancer screening Special screening for malignant neoplasms, colon BMI 50.0-59.9, adult ([facility]) Heel pain, bilateral Type 2 diabetes mellitus without complication, without long-term current use of insulin ([facility])- Primary History of anuria Stage 3 chronic kidney disease due to type 2 diabetes mellitus (HCC) ([facility]) BMI 50.0-59.9, adult ([facility]) URIEL (obstructive sleep apnea) Obstructive sleep apnea (adult) (pediatric) Primary hypertension ([facility]) Unspecified essential hypertension Chronic diastolic heart failure ([facility]) Chronic diastolic heart failure Depression, unspecified depression type ([facility]) Type 2 diabetes mellitus without complication, without long-term current use of insulin ([facility])- Primary Stage 3 chronic kidney disease due to type 2 diabetes mellitus (HCC) ([facility]) BMI 50.0-59.9, adult ([facility]) Lower extremity edema Edema Dental infection- Primary Type 2 diabetes mellitus with stage 3 chronic kidney disease, without long-term current use of insulin, unspecified whether stage 3a or 3b CKD (HCC) ([facility])- Primary Bipolar affective disorder, remission status unspecified ([facility]) Restless leg syndrome Restless legs syndrome (RLS) URIEL (obstructive sleep apnea) Obstructive sleep apnea (adult) (pediatric) Primary hypertension ([facility]) Unspecified essential hypertension Chronic diastolic heart failure ([facility]) Chronic diastolic heart failure Stage 3 chronic kidney disease due to type 2 diabetes mellitus (HCC) ([facility]) Seasonal allergies Allergic rhinitis, cause unspecified BMI 50.0-59.9, adult ([facility]) Type 2 diabetes mellitus with stage 4 chronic kidney disease, without long-term current use of insulin ([facility])- Primary Type 2 diabetes mellitus without complication, without long-term current use of insulin ([facility]) Left lower quadrant abdominal pain- Primary Morbid (severe) obesity due to excess calories ([facility]) Body mass index (BMI) 45.0-49.9, adult ([facility]) Restless leg syndrome Restless legs syndrome (RLS) Stage 3b chronic kidney disease (HCC) ([facility]) Type 2 diabetes mellitus with other circulatory complications ([facility])- Primary Type 2 diabetes mellitus with stage 4 chronic kidney disease, without long-term current use of insulin ([facility]) Type 2 diabetes mellitus with stage 3a chronic kidney disease, without long-term current use of insulin (HCC) ([facility]) Class 3 severe obesity due to excess calories with serious comorbidity and body mass index (BMI) of 45.0 to 49.9 in adult ([facility]) Primary hypertension ([facility])- Primary Unspecified essential hypertension Spinal stenosis of lumbar region at multiple levels Restless leg syndrome Restless legs syndrome (RLS) URIEL (obstructive sleep apnea) Obstructive sleep apnea (adult) (pediatric) Coronary arteriosclerosis ([facility]) Coronary atherosclerosis of unspecified type of vessel, squaxin or graft Stage 3b chronic kidney disease (HCC) ([facility]) Swelling of both lower extremities Lower extremity edema Edema Type 2 diabetes mellitus with stage 3a chronic kidney disease, without long-term current use of insulin ([facility]) ([facility]) Class 3 severe obesity due to excess calories with serious comorbidity and body mass index (BMI) of 45.0 to 49.9 in adult ([facility]) Bipolar affective disorder, remission status unspecified ([facility] Generalized anxiety disorder ([facility] [facility] Generalized anxiety disorder Vitamin D deficiency Vitamin B12 deficiency Other B-complex deficiencies H/O bariatric surgery Acute non-recurrent pansinusitis Restless leg syndrome Restless legs syndrome (RLS) documented in [facility] encounter [facility]* Diagnosis Left lower quadrant abdominal pain- Primary Morbid (severe) obesity due to excess calories ([facility]) Body mass index (BMI) 45.0-49.9, adult ([facility]) Restless leg syndrome Restless legs syndrome (RLS) Stage 3b chronic kidney disease (HCC) ([facility]) documented in [facility]* [...] disease, without long-term current use of insulin ([facility])- Primary documented in this encounter [facility]* Diagnosis Primary hypertension ([facility]) Unspecified essential hypertension documented in this encounter [facility]* Diagnosis Primary hypertension ([facility])- Primary Unspecified essential hypertension Gastroesophageal reflux disease, unspecified whether esophagitis present Microscopic hematuria Lower extremity edema Edema Type 2 diabetes mellitus without complication, without long-term current use of insulin ([facility]) Stage 3 chronic kidney disease due to type 2 diabetes mellitus (HCC) ([facility]) Mixed hyperlipidemia ([facility]) Mixed hyperlipidemia Migraine without aura and without status migrainosus, not intractable ([facility]) Encounter for screening mammogram for malignant neoplasm of breast Colon cancer screening Special screening for malignant neoplasms, colon BMI 50.0-59.9, adult ([facility]) Heel pain, bilateral Type 2 diabetes mellitus without complication, without long-term current use of insulin ([facility])- Primary History of anuria Stage 3 chronic kidney disease due to type 2 diabetes mellitus (HCC) ([facility]) BMI 50.0-59.9, adult ([facility]) URIEL (obstructive sleep apnea) Obstructive sleep apnea (adult) (pediatric) Primary hypertension ([facility]) Unspecified essential hypertension Chronic diastolic heart failure ([facility]) Chronic diastolic heart failure Depression, unspecified depression type ([facility]) Type 2 diabetes mellitus without complication, without long-term current use of insulin ([facility])- Primary Stage 3 chronic kidney disease due to type 2 diabetes mellitus (HCC) ([facility]) BMI 50.0-59.9, adult ([facility]) Lower extremity edema Edema Dental infection- Primary Type 2 diabetes mellitus with stage 3 chronic kidney disease, without long-term current use of insulin, unspecified whether stage 3a or 3b CKD (HCC) ([facility])- Primary Bipolar affective disorder, remission status unspecified ([facility]) Restless leg syndrome Restless legs syndrome (RLS) URIEL (obstructive sleep apnea) Obstructive sleep apnea (adult) (pediatric) Primary hypertension ([facility]) Unspecified essential hypertension Chronic diastolic heart failure ([facility]) Chronic diastolic heart failure Stage 3 chronic kidney disease due to type 2 diabetes mellitus (HCC) ([facility]) Seasonal allergies Allergic rhinitis, cause unspecified BMI 50.0-59.9, adult ([facility]) Type 2 diabetes mellitus with stage 4 chronic kidney disease, without long-term current use of insulin [place] Primary Type 2 diabetes mellitus without complication, without long-term current use of insulin ([facility]) Left lower quadrant abdominal pain- Primary Morbid (severe) obesity due to excess calories ([facility]) Body mass index (BMI) 45.0-49.9, adult ([facility]) Restless leg syndrome Restless legs syndrome (RLS) Stage 3b chronic kidney disease (HCC) ([facility]) Type 2 diabetes mellitus with other circulatory complications ([facility])- Primary Type 2 diabetes mellitus with stage 4 chronic kidney disease, without long-term current use of insulin ([facility]) Type 2 diabetes mellitus with stage 3a chronic kidney disease, without long-term current use of insulin (HCC) ([facility]) Class 3 severe obesity due to excess calories with serious comorbidity and body mass index (BMI) of 45.0 to 49.9 in adult ([facility]) Primary hypertension ([facility])- Primary Unspecified essential hypertension Spinal stenosis of lumbar region at multiple levels Restless leg syndrome Restless legs syndrome (RLS) URIEL (obstructive sleep apnea) Obstructive sleep apnea (adult) (pediatric) Coronary arteriosclerosis ([facility]) Coronary atherosclerosis of unspecified type of vessel, squaxin or graft Stage 3b chronic kidney disease (HCC) ([facility]) Swelling of both lower extremities Lower extremity edema Edema Type 2 diabetes mellitus with stage 3a chronic kidney disease, without long-term current use of insulin (HCC) ([facility]) Class 3 severe obesity due to excess calories with serious comorbidity and body mass index (BMI) of 45.0 to 49.9 in adult ([facility]) Bipolar affective disorder, remission status unspecified ([facility]) Generalized anxiety disorder ([facility]) Generalized anxiety disorder Vitamin D deficiency Vitamin B12 deficiency Other B-complex deficiencies H/O bariatric surgery Acute non-recurrent pansinusitis Muscle spasm Spasm of muscle documented in this encounter [facility]* Diagnosis Primary hypertension ([facility])- Primary Unspecified essential hypertension Gastroesophageal reflux disease, unspecified whether esophagitis present Microscopic hematuria Lower extremity edema Edema Type 2 diabetes mellitus without complication, without long-term current use of insulin ([facility]) Stage 3 chronic kidney disease due to type 2 diabetes mellitus (HCC) ([facility]) Mixed hyperlipidemia ([facility]) Mixed hyperlipidemia Migraine without aura and without status migrainosus, not intractable ([facility]) Encounter for screening mammogram for malignant neoplasm of breast Colon cancer screening Special screening for malignant neoplasms, colon BMI 50.0-59.9, adult ([facility]) Heel pain, bilateral Type 2 diabetes mellitus without complication, without long-term current use of insulin ([facility])- Primary History of anuria Stage 3 chronic kidney disease due to type 2 diabetes mellitus (HCC) ([facility]) BMI 50.0-59.9, adult ([facility]) URIEL (obstructive sleep apnea) Obstructive sleep apnea (adult) (pediatric) Primary hypertension ([facility]) Unspecified essential hypertension Chronic diastolic heart failure ([facility]) Chronic diastolic heart failure Depression, unspecified depression type ([facility]) Type 2 diabetes mellitus without complication, without long-term current use of insulin ([facility])- Primary Stage 3 chronic kidney disease due to type 2 diabetes mellitus (HCC) ([facility]) BMI 50.0-59.9, adult ([facility]) Lower extremity edema Edema Dental infection- Primary Type 2 diabetes mellitus with stage 3 chronic kidney disease, without long-term current use of insulin, unspecified whether stage 3a or 3b CKD ([facility]) ([facility])- Primary Bipolar affective disorder, remission status unspecified [place] Restless leg syndrome Restless legs syndrome (RLS) URIEL (obstructive sleep apnea) Obstructive sleep apnea (adult) (pediatric) Primary hypertension ([facility]) Unspecified essential hypertension Chronic diastolic heart failure ([facility] Chronic diastolic heart failure Stage 3 chronic kidney disease due to type 2 diabetes mellitus (HCC) [place] Seasonal allergies Allergic rhinitis, cause unspecified BMI 50.0-59.9, adult ([facility]) Type 2 diabetes mellitus with stage 4 chronic kidney disease, without long-term current use of insulin ([facility])- Primary Type 2 diabetes mellitus without complication, without long-term current use of insulin ([facility]) Left lower quadrant abdominal pain- Primary Morbid (severe) obesity due to excess calories ([facility]) Body mass index (BMI) 45.0-49.9, adult ([facility]) Restless leg syndrome Restless legs syndrome (RLS) Stage 3b chronic kidney disease (HCC) [place] Type 2 diabetes mellitus with other circulatory complications [place] Primary Type 2 diabetes mellitus with stage 4 chronic kidney disease, without long-term current use of insulin [place] Type 2 diabetes mellitus with stage 3a chronic kidney disease, without long-term current use of insulin (HCC) [place] Class 3 severe obesity due to excess calories with serious comorbidity and body mass index (BMI) of 45.0 to 49.9 in adult ([facility]) Primary hypertension ([facility])- Primary Unspecified essential hypertension Spinal stenosis of lumbar region at multiple levels Restless leg syndrome Restless legs syndrome (RLS) URIEL (obstructive sleep apnea) Obstructive sleep apnea (adult) (pediatric) Coronary arteriosclerosis ([facility]) Coronary atherosclerosis of unspecified type of vessel, squaxin or graft Stage 3b chronic kidney disease (HCC) ([facility]) Swelling of both lower extremities Lower extremity edema Edema Type 2 diabetes mellitus with stage 3a chronic kidney disease, without long-term current use of insulin (HCC) ([facility]) Class 3 severe obesity due to excess calories with serious comorbidity and body mass index (BMI) of 45.0 to 49.9 in adult ([facility]) Bipolar affective disorder, remission status unspecified ([facility]) Generalized anxiety disorder ([facility]) Generalized anxiety disorder Vitamin D deficiency Vitamin B12 deficiency Other B-complex deficiencies H/O bariatric surgery Acute non-recurrent pansinusitis Class 2 severe obesity due to excess calories with serious comorbidity and body mass index (BMI) of 38.0 to 38.9 in adult ([facility])- Primary Type 2 diabetes mellitus with other circulatory complications ([facility]) Type 2 diabetes mellitus with stage 3a chronic kidney disease, without long-term current use of insulin (HCC) ([facility]) documented in this encounter [facility]* Diagnosis Primary hypertension ([facility])- Primary Unspecified essential hypertension Gastroesophageal reflux disease, unspecified whether esophagitis present Microscopic hematuria Lower extremity edema Edema Type 2 diabetes mellitus without complication, without long-term current use of insulin Stage 3 chronic kidney disease due to type 2 diabetes mellitus (HCC) ([facility]) Mixed hyperlipidemia ([facility]) Mixed hyperlipidemia Migraine without aura and without status migrainosus, not intractable ([facility]) Encounter for screening mammogram for malignant neoplasm of breast Colon cancer screening Special screening for malignant neoplasms, colon BMI 50.0-59.9, adult ([facility]) Heel pain, bilateral Type 2 diabetes mellitus without complication, without long-term current use of insulin- Primary History of anuria Stage 3 chronic kidney disease due to type 2 diabetes mellitus (HCC) ([facility]) BMI 50.0-59.9, adult ([facility]) URIEL (obstructive sleep apnea) Obstructive sleep apnea (adult) (pediatric) Primary hypertension ([facility]) Unspecified essential hypertension Chronic diastolic heart failure ([facility]) Chronic diastolic heart failure Depression, unspecified depression type [place] Type 2 diabetes mellitus without complication, without long-term current use of insulin- Primary Stage 3 chronic kidney disease due to type 2 diabetes mellitus ([facility]) [place] BMI 50.0-59.9, adult [place] Lower extremity edema Edema Dental infection- Primary Type 2 diabetes mellitus with stage 3 chronic kidney disease, without long-term current use of insulin, unspecified whether stage 3a or 3b CKD (HCC) ([facility] Primary Bipolar affective disorder, remission status unspecified [place] Restless leg syndrome Restless legs syndrome (RLS) URIEL (obstructive sleep apnea) Obstructive sleep apnea (adult) (pediatric) Primary hypertension ([facility]) Unspecified essential hypertension Chronic diastolic heart failure ([facility]) Chronic diastolic heart failure Stage 3 chronic kidney disease due to type 2 diabetes mellitus ([facility]) [place] Seasonal allergies Allergic rhinitis, cause unspecified BMI 50.0-59.9, adult [place] Type 2 diabetes mellitus with stage 4 chronic kidney disease, without long-term current use of insulin [place] Primary Type 2 diabetes mellitus without complication, without long-term current use of insulin Left lower quadrant abdominal pain- Primary Morbid (severe) obesity due to excess calories ([facility]) Body mass index (BMI) 45.0-49.9, adult [place] Restless leg syndrome Restless legs syndrome (RLS) Stage 3b chronic kidney disease (HCC) [place] Type 2 diabetes mellitus with other circulatory complications- Primary Type 2 diabetes mellitus with stage 4 chronic kidney disease, without long-term current use of insulin [place] Type 2 diabetes mellitus with stage 3a chronic kidney disease, without long-term current use of insulin ([facility]) [place] Class 3 severe obesity due to excess calories with serious comorbidity and body mass index (BMI) of 45.0 to 49.9 in adult Primary hypertension ([facility])- Primary Unspecified essential hypertension Spinal stenosis of lumbar region at multiple levels Restless leg syndrome Restless legs syndrome (RLS) URIEL (obstructive sleep apnea) Obstructive sleep apnea (adult) (pediatric) Coronary arteriosclerosis ([facility]) Coronary atherosclerosis of unspecified type of vessel, squaxin or graft Stage 3b chronic kidney disease (HCC) ([facility]) Swelling of both lower extremities Lower extremity edema Edema Type 2 diabetes mellitus with stage 3a chronic kidney disease, without long-term current use of insulin (HCC) ([facility]) Class 3 severe obesity due to excess calories with serious comorbidity and body mass index (BMI) of 45.0 to 49.9 in adult Bipolar affective disorder, remission status unspecified ([facility]) Generalized anxiety disorder ([facility]) Generalized anxiety disorder Vitamin D deficiency Vitamin B12 deficiency Other B-complex deficiencies H/O bariatric surgery Acute non-recurrent pansinusitis Class 2 severe obesity due to excess calories with serious comorbidity and body mass index (BMI) of 38.0 to 38.9 in adult ([facility])- Primary Type 2 diabetes mellitus with other circulatory complications Type 2 diabetes mellitus with stage 3a chronic kidney disease, without long-term current use of insulin ([facility]) ([facility]) Acute foot pain, left- Primary Acute left ankle pain documented in this encounter [facility]* Diagnosis Primary hypertension ([facility])- Primary Unspecified essential hypertension Gastroesophageal reflux disease, unspecified whether esophagitis present Microscopic hematuria Lower extremity edema Edema Type 2 diabetes mellitus without complication, without long-term current use of insulin Stage 3 chronic kidney disease due to type 2 diabetes mellitus (HCC) ([facility]) Mixed hyperlipidemia ([facility]) Mixed hyperlipidemia Migraine without aura and without status migrainosus, not intractable ([facility]) Encounter for screening mammogram for malignant neoplasm of breast Colon cancer screening Special screening for malignant neoplasms, colon BMI 50.0-59.9, adult ([facility]) Heel pain, bilateral Type 2 diabetes mellitus without complication, without long-term current use of insulin- Primary History of anuria Stage 3 chronic kidney disease due to type 2 diabetes mellitus (HCC) ([facility]) BMI 50.0-59.9, adult ([facility]) URIEL (obstructive sleep apnea) Obstructive sleep apnea (adult) (pediatric) Primary hypertension ([facility]) Unspecified essential hypertension Chronic diastolic heart failure ([facility]) Chronic diastolic heart failure Depression, unspecified depression type ([facility]) Type 2 diabetes mellitus without complication, without long-term current use of insulin- Primary Stage 3 chronic kidney disease due to type 2 diabetes mellitus (HCC) ([facility]) BMI 50.0-59.9, adult [place] Lower extremity edema Edema Dental infection- Primary Type 2 diabetes mellitus with stage 3 chronic kidney disease, without long-term current use of insulin, unspecified whether stage 3a or 3b CKD (HCC) ([facility] Primary Bipolar affective disorder, remission status unspecified [place] Restless leg syndrome Restless legs syndrome (RLS) URIEL (obstructive sleep apnea) Obstructive sleep apnea (adult) (pediatric) Primary hypertension ([facility]) Unspecified essential hypertension Chronic diastolic heart failure ([facility]) Chronic diastolic heart failure Stage 3 chronic kidney disease due to type 2 diabetes mellitus ([facility]) [place] Seasonal allergies Allergic rhinitis, cause unspecified BMI 50.0-59.9, adult [place] Type 2 diabetes mellitus with stage 4 chronic kidney disease, without long-term current use of insulin ([facility] Primary Type 2 diabetes mellitus without complication, without long-term current use of insulin Left lower quadrant abdominal pain- Primary Morbid (severe) obesity due to excess calories [place] Body mass index (BMI) 45.0-49.9, adult [place] Restless leg syndrome Restless legs syndrome (RLS) Stage 3b chronic kidney disease (HCC) [place] Type 2 diabetes mellitus with other circulatory complications- Primary Type 2 diabetes mellitus with stage 4 chronic kidney disease, without long-term current use of insulin [place] Type 2 diabetes mellitus with stage 3a chronic kidney disease, without long-term current use of insulin ([facility]) [place] Class 3 severe obesity due to excess calories with serious comorbidity and body mass index (BMI) of 45.0 to 49.9 in adult Primary hypertension ([facility])- Primary Unspecified essential hypertension Spinal stenosis of lumbar region at multiple levels Restless leg syndrome Restless legs syndrome (RLS) URIEL (obstructive sleep apnea) Obstructive sleep apnea (adult) (pediatric) Coronary arteriosclerosis ([facility]) Coronary atherosclerosis of unspecified type of vessel, squaxin or graft Stage 3b chronic kidney disease (HCC) ([facility] Swelling of both lower extremities Lower extremity edema Edema Type 2 diabetes mellitus with stage 3a chronic kidney disease, without long-term current use of insulin ([facility]) [place] Class 3 severe obesity due to excess calories with serious comorbidity and body mass index (BMI) of 45.0 to 49.9 in adult Bipolar affective disorder, remission status unspecified ([facility]) Generalized anxiety disorder ([facility]) Generalized anxiety disorder Vitamin D deficiency Vitamin B12 deficiency Other B-complex deficiencies H/O bariatric surgery Acute non-recurrent pansinusitis Class 2 severe obesity due to excess calories with serious comorbidity and body mass index (BMI) of 38.0 to 38.9 in adult ([facility])- Primary Type 2 diabetes mellitus with other circulatory complications Type 2 diabetes mellitus with stage 3a chronic kidney disease, without long-term current use of insulin (HCC) ([facility]) Restless leg syndrome Restless legs syndrome (RLS) [facility] Narrative - Reported* Type Description [...] History Tonsilectomy Teenager Hospitalization History See Above [employer] Other History general Narrative - Reported* Type [...] BACK SURGERY 07/2021 Hospitalization History See Above [employer] Other Summary Purpose Family History Relationship Condition Age at Onset Recorded Date/T [...] history of mental disorder Unknown Advance Directives Advance Directive Response Recorded Date/ Time Advance Directives No March 19, 2018 5:43pm Advance Directive Response Recorded Date/ Time Advance Directives No March 19, 2018 4:43pm Hospital Course Note MR#: [id number] [facility] Pt. Name: Sherly Humphreys Admitted: [...] Diagnosis 1 Thoracic myelopathy (M47.14) Referral Organization [facility] urosurgery Referring Provider First Name Christian Referring Provider Last Name Alfonso Referring Provider Specialty Neurologica l Surgery Referred Organization [facility] Pain Managemen t Referred Provider Ivan Sams Referred Address [address] [address] ,[place], [place],[address] Referred Provider Specialty Pain Medicin e Referral [...] Low back pain (M54.5 ) Referral Organization [facility] Referring Provider First Name Christian [...] section and content) DATE CREATED AUTHOR 11/22/2018 [facility] DATE CREATED AUTHOR AUTHOR'S ORGANIZ ATION 09/22/2022 [facility] DATE CREATED AUTHOR AUTHOR'S ORGANIZ ATION 05/26/2023 [facility] DATE CREATED AUTHOR AUTHOR'S ORGANIZ ATION 12/14/2023 [facility] DATE CREATED AUTHOR AUTHOR'S ORGANIZ ATION 12/19/2023 [facility] DATE CREATED AUTHOR AUTHOR'S ORGANIZ ATION 06/17/2024 [facility] EPIC DATE CREATED AUTHOR AUTHOR'S ORGANIZ ATION 07/20/2024 [facility] REASON FOR VISIT (unrecogniz [...] Status: Active Member Role Status Dates [facility] Primary Care Provider Active Sta rt: March 15, 2023 Valdemar Alonso MD Attending Provider Active Start: March 15, 2023 Team Status: Inactive Member Role Status Dates [facility] Care Provider Active Christian Hamilton MD Attending Provider Active Team Status: Inactive Member Role Status Dates [facility] Primary Care Provider Active Emma Bolivar NP Attending Provider Active Team Status: Inactive Member Role Status Dates [facility] Provider Active Merissa Hernandez TRAIN EXAMINER- Emergency Provider Active Team Status: Inactive Member Role Status Dates [facility] Primary Care Provider Active Sta rt: August 15, 2023 End: August 15, 2023 Halle Mac MD Attending Provider Active Star t: August 15, 2023 End: August 15, 2023 Team Status: Active Member Role Status Dates [facility] Primary Care Provider Active Sta rt: September 03, 2023 Valdemar Alonso MD Attending Provider Active Start: September 03, 2023 Team Status: Inactive Member Role Status Dates [facility] Primary Care Provider Active Sta rt: October 01, 2023 End: October 02, 2023 Alma Deng MD Admit Provider Active Start: October 01, 2023 End: October 02, 2023 Des Benitez MD Other Provider Active Start: 2023 End: October 02, 2023 Fernando Rosenberg MD Attending Provider Active Start: October 01, 2023 End: October 02, 2023 Team Status: Active Member Role Status Dates [facility] Primary Care Provider Active Sta rt: October 01, 2023 Alma Deng MD Admit Provider Active Start: October 01, 2023 Des Benitez MD Attending Provider, Other Provider Active Start: October 01, 2023 Fernando Rosenberg MD Other Provider Active Start: October 01, 2023 Team Status: Inactive Member Role Status Dates [facility]opes [facility] Primary Care Provider Active Sta rt: October [...] November 01, 2023 End: November 01, 2023 [employer] Work[employer] Relationship Specialty Start Date End Date Markel Haq MD [address] [place] [address] PCP - [facility] Medicine 05/03/23 Janene Lew NP [address] [place] [address] PCP [facility] 09/15/23 [employer] Worker Relationship Specialty Start Date End Date Markel Haq MD [address] [place] [address] PCP - [facility] Medicine 05/03/23 Janene Lew NP [address] [place] [address] PCP - [facility] [employer] 09/15/23 [employer] Worker Relationship Specialty Start Date End Date Markel Haq MD [address] [place] [address] PCP - General Family Medicine 05/03/23 Janene Lew NP [address] [place] [address] PCP - [facility] [employer] 09/15/23 [employer] Worker Relationship Specialty Start Date End Date Markel Haq MD [address] [place] [address] PCP - General Family Medicine 05/03/23 Janene Lew NP [address] [place] [address] PCP - [facility] 09/15/23 [employer] Worker Relationship Specialty Start Date End Date Markel Haq MD [address] [place] [address] PCP - General Family Medicine 05/03/23 Janene Lew NP [address] [place] [address] PCP - [facility] 09/15/23 [employer] Worker Relationship Specialty Start Date End Date Markel Haq MD [address] [place] [address] PCP - General Family Medicine 05/03/23 Janene Lew NP [address] [place] [address] PCP - [facility] [employer] 09/15/23 [employer] Worker Relationship Specialty Start Date End Date Markel Haq MD [address] [place] [address] PCP - General Family Medicine 05/03/23 Janene Lew NP [address] [place] [address] PCP - [facility] 09/15/23 [employer] Worker Relationship Specialty Start Date End Date Markel Haq MD [address] [place] [address] PCP - General Family Medicine 05/03/23 Janene Lew NP [address] [place] [address] PCP - [employer] 09/15/23 [employer] Worker Relationship Specialty Start Date End Date Markel Haq MD [address] [place] [address] PCP - General Family Medicine 05/03/23 Janene Lew NP [address] [place] [address] PCP - [employer] 09/15/23 [employer] Worker Relationship Specialty Start Date End Date Markel Haq MD [address] [place] [address] PCP - General Family Medicine 05/03/23 Janene Lew NP [address] [place] [address] PCP - [employer] 09/15/23 [employer] Worker Relationship Specialty Start Date End Date Markel Haq MD [address] [place] [address] PCP - General Family Medicine 05/03/23 Janene Lew NP [address] [place] [address] PCP - [employer] 09/15/23 [employer] Worker Relationship Specialty Start Date End Date Markel Haq MD [address] [place] [address] PCP - General Family Medicine 05/03/23 Janene Lew NP [address] [place] [address] PCP - [employer] 09/15/23 [employer] Worker Relationship Specialty Start Date End Date Markel Haq MD [address] [place] [address] PCP - General Family Medicine 05/03/23 Janene Lew NP [address] [place] [address] PCP - [employer] 09/15/23 [employer] Worker Relationship Specialty Start Date End Date Markel Haq MD [address] [place] [address] PCP - General Family Medicine 05/03/23 Janene Lew NP [address] [place] [address] PCP - [employer] 09/15/23 [employer] Worker Relationship Specialty Start Date End Date Markel Haq MD [address] [place] [address] PCP - General Family Medicine 05/03/23 Janene Lew NP [address] [place] [address] PCP - [employer] 09/15/23 [employer] Worker Relationship Specialty Start Date End Date Markel Haq MD [address] [place] [address] PCP - General Family Medicine 05/03/23 Janene Lew NP [address] [place] [address] PCP - [employer] 09/15/23 [employer] Worker Relationship Specialty Start Date End Date Markel Haq MD [address] [place] [address] PCP - General Family Medicine 05/03/23 Janene Lew NP [address] [place] [address] PCP - [employer] 09/15/23 Goals (unrecognized section and content) [...] BE BASED ON THE PRIMARY CLINICAL RECORDS. [employer] [facility]. provides no warranty or guarantee of the accuracy or completeness of information in this document.
--- NOTE | 2024-08-28 07:59 | PM.CN ---
Consult Note: HPI Data of Consult Patient: known to practice within the last 3 years Consult date: 08/28/24 Requesting Physician: Becca Meneses NP Primary Care Provider: Janene Lew NP Consult Narrative Reason for consult: f/u Narrative: pleasant 53yof who presents for evaluation. increasing middle and low back pain. imaging reviewed of lumbar spine consistent with lumbar stenosis with NC, lumbar spondylosis and facet arthropathy, thoracic spine consists of degenerative changes and bulging disc. continues to engage in >6 week course of provider directed home exercises 2x/week, with limited benefit. underwent two previous discectomies, with little relief. her previous neurosurgeon does not recommend further surgery. was advised to consider scs.. cannot take NSAIDs, hx of gastric bypass. she utilizes gabapentin, tizanidine, and percocet. denies adverse med side effects. Today pain 6/10 in right hip, middle back, bilateral buttock, bilateral low back, feels like a burning sharp pain, increasing to 10/10 with standing walking working lifting bending and sleep. Patient continues to find functional improvement from current medication regimen. Again recently evaluated by JERRY Kc who recommends no surgical intervention, but rather spinal cord stim trial. cc:: CC: Becca Meneses NP Review of Systems ROS Status of ROS 10 or more systems reviewed and unremarkable except as noted in history and below Musculoskeletal Reports: back pain, extremity pain and joint pain PFSH PFSH Medical History Bipolar 1 disorder ?F31.9 - Bipolar disorder, unspecified (ICD-10) Anxiety ?F41.9 - Anxiety disorder, unspecified (ICD-10) Diabetes ?E11.9 - Type 2 diabetes mellitus without complications (ICD-10) URIEL on CPAP ?G47.33 - Obstructive sleep apnea (adult) (pediatric) (ICD-10) Sleep apnea ?G47.30 - Sleep apnea, unspecified (ICD-10) High cholesterol ?E78.00 - Pure hypercholesterolemia, unspecified (ICD-10) CHF (congestive heart failure) ?I50.9 - Heart failure, unspecified (ICD-10) Surgical History History of hysterectomy ?Z90.710 - Acquired absence of both cervix and uterus (ICD-10) History of shoulder surgery ?Z98.890 - Other specified postprocedural states (ICD-10) History of neck surgery ?Z98.890 - Other specified postprocedural states (ICD-10) History of back surgery ?Z98.890 - Other specified postprocedural states (ICD-10) History of heart artery stent ?Z95.5 - Presence of coronary angioplasty implant and graft (ICD-10) Social History Smoking status: Never smoker Little interest or pleasure in doing things: not at all Feeling down, depressed, or hopeless: not at all Meds Home Medications and Allergies Home Medications ?Medication ?Instructions ?Recorded ?Confirmed ?Type amlodipine 10 mg tablet 10 mg PO QDAY 12/18/22 12/03/23 History aripiprazole 10 mg tablet 10 mg PO QDAY 12/18/22 12/03/23 History aspirin 81 mg chewable tablet 81 mg PO QDAY 12/18/22 12/03/23 History atorvastatin 80 mg tablet 80 mg PO QDAY 12/18/22 12/03/23 History buspirone 30 mg tablet 30 mg PO BID 12/18/22 12/03/23 History cariprazine 6 mg capsule (Vraylar) 6 mg PO Q24H 12/18/22 12/03/23 History fenofibrate nanocrystallized 145 145 mg PO QDAY 12/18/22 12/03/23 History mg tablet furosemide 20 mg tablet 40 mg PO QDAY 12/18/22 12/03/23 History gabapentin 600 mg tablet 600 mg PO QDAY PRN neuromuscular 12/18/22 12/03/23 History blockade isosorbide mononitrate 30 mg 30 mg PO QDAY 12/18/22 12/03/23 History tablet,extended release 24 hr metoprolol succinate 25 mg 12.5 mg PO QDAY 12/18/22 12/03/23 History tablet,extended release 24 hr pioglitazone 45 mg tablet 45 mg PO QDAY 12/18/22 12/03/23 History sacubitril 49 mg-valsartan 51 mg 1 tab PO BID 12/18/22 12/03/23 History tablet (Entresto) spironolactone 25 mg tablet 25 mg PO QDAY 12/18/22 12/03/23 History tizanidine 4 mg tablet 4 mg PO Q8H PRN muscle spasticity 12/18/22 12/03/23 History cetirizine 10 mg tablet (Zyrtec) 10 mg PO DAILY PRN allergy symptoms 01/01/23 12/03/23 History ferrous sulfate 134 mg (27 mg 134 mg PO DAILY 01/01/23 12/03/23 History iron) tablet (High Potency Iron) fluoxetine 10 mg capsule (Prozac) 10 mg PO DAILY 09/24/23 12/03/23 History oxycodone-acetaminophen 7.5 mg-325 1 tab PO BID PRN pain #60 tabs 10/23/23 12/03/23 Rx mg tablet (Percocet) diazepam 10 mg tablet 10 mg PO PRN sedation 12/03/23 History oxycodone-acetaminophen 7.5 mg-325 1 tab PO BID PRN pain #60 tabs 12/21/23 Rx mg tablet (Endocet) oxycodone-acetaminophen 7.5 mg-325 1 tab PO BID PRN pain #60 tabs 01/23/24 Rx mg tablet (Percocet) oxycodone-acetaminophen 7.5 mg-325 1 tab PO BID PRN pain #60 tabs 02/20/24 Rx mg tablet (Percocet) oxycodone-acetaminophen 7.5 mg-325 1 tab PO BID PRN pain #60 tabs 03/24/24 Rx mg tablet (Percocet) oxycodone-acetaminophen 7.5 mg-325 1 tab PO BID PRN pain #60 tabs 04/22/24 Rx mg tablet (Percocet) oxycodone-acetaminophen 7.5 mg-325 1 tab PO BID PRN pain #60 tabs 05/26/24 Rx mg tablet (Percocet) oxycodone-acetaminophen 7.5 mg-325 1 tab PO BID PRN pain #60 tabs 06/20/24 Rx mg tablet (Percocet) oxycodone-acetaminophen 7.5 mg-325 1 tab PO BID PRN pain #60 tabs 07/23/24 Rx mg tablet (Percocet) Allergies Allergy/AdvReac Type Severity Reaction Status Date / Time Sulfa (Sulfonamide Allergy Mild Hives Verified 12/03/23 10:09 Antibiotics) prochlorperazine (From AdvReac Intermediate Agitated Verified 12/03/23 10:09 Compazine) promethazine (From Phenergan) AdvReac Intermediate Agitated Verified 12/03/23 10:09 sulfamethoxazole (From AdvReac Mild Hives Verified 12/03/23 10:09 Bactrim) trimethoprim (From Bactrim) AdvReac Mild Hives Verified 12/03/23 10:09 Exam Constitutional Documenting provider has reviewed patient's vital signs: yes Common normals: no apparent distress, oriented x3, healthy appearing, alert and well nourished General appearance: cooperative HENAR Common normals: normocephalic, hearing grossly normal bilaterally and moist oral mucous membranes Head and scalp: normocephalic Eye Common normals: PERRL Pupil: PERRL Neck & C-Spine Common normals: full ROM General: normal visual inspection Chest Common normals: inspection of chest normal Respiratory Common normals: normal respiratory effort, no retractions and no use of accessory muscles Back & Pelvis Thoracic spine/upper back: ROM limited, pain with ROM and thoracic spinal tenderness Lumbar spine/lower back: ROM limited, pain with ROM and straight leg raise positive right Other: positive facet loading at T10-L3 radiculopathy following T12-L1 patterns increased pain with standing and walking, improved with sitting and forward flexion strength 5/5 in BLE, sensation intact Extremity Common normals: normal to inspection and full ROM Right lower extremity: hip joint Other: increased pain with internal and external rotation of right hip Neuro Common normals: oriented x3 and CN's II-XII intact bilaterally Sensorium/orientation: alert Motor exam: no movement abnormalities noted Psych Common normals: mental status grossly normal, thought process normal, cooperative, affect normal, speech normal and activity/motor behavior normal Speech: normal speech Thought process: normal thought process Results Additional Findings Additional findings: If on a controlled substance or opioids, I have checked an [place] report on this patient and there are no aberrancies noted in the prescribing history.??If on a controlled substance or opioid a drug screen was completed and reviewed within the last year, and if there has not been a drug screen completed we ordered one today to monitor higher risk, state monitored pain medication use. As part of providing excellent, safe, comprehensive care, the following was completed at our patient's visit: 1. A medication reconciliation and review to ensure accurate knowledge of current/active medications, including asking our patients to inform us about any [id number] medications or herbal remedies/nutritional supplements/alternative remedies. 2. A review to specifically ensure our patients have had annual screening for screening for depression, screening for tobacco use, and screening for unhealthy alcohol use. For concerning screenings had a discussion with the patient, provided patient education, and recommended follow-up with primary care provider when appropriate. If patient noted with a risk of falling, they received education on strength, gait, and balance training to prevent future risk of falling. Assessment and Plan Assessment and Plan (1) Failed back syndrome: Assessment and Plan: The patient has had over 3 months of moderate to severe low back pain with functional impairment and inadequate response to conservative care including NSAIDS (unless there are contraindication such as concurrent blood thinners), multiple oral or topical pain medications, and home exercise program/physical therapy.? Patient has completed >6 weeks of guided home exercise program and/or formal physical therapy program without relief of their symptoms.? The Oswestry Disability Index was completed, and the patient scored a 58%.? The patient noted the following:?? moderate to severe pain, pain with ADLs, pain with walking, pain impacting sleep, pain impacting social life and travel? (2) Lumbar spondylosis: (3) Thoracic radiculopathy: (4) Thoracic stenosis: (5) Chronic prescription opiate use: Assessment and Plan: I feel these medications are improving the patient's quality of life and allow them to tolerate activities of daily living as well as participate in recreational activity.? The patient does not report intolerable side effects. The patient is NOT opioid naive and non-pharmacologic and non-opioid treatment has failed to significantly relieve the patient's pain and improve functionality. The patient has a diagnosis that is related to a somatic or visceral pain etiology. ? ?? I reviewed with the patient the potential risks and side effects with the use of? opioid medications including but not limited to respiratory depression,? sedation, and even . I verified the patient has access to naloxone should? these effects occur. I advised the patient to avoid the use of any other? sedation substances including alcohol, THC, and benzodiazepines while? taking opioid medications due to the risk of compounding side effects and? detrimental outcomes. I reviewed the [employer], pain treatment agreement, urine? drug screen, and opioid start talking forms. The patient was advised to let? their family know they had Naloxone in case they would need to administer? the medication.? ?? A drug screen was completed within the last year, and no aberrancies were noted regarding their use of controlled substances. The patient understands they are subject to the terms and conditions of the pain contract that they have signed. ? ?? I have checked an [place]AR[place] report on this patient today and there are no aberrancies noted in the prescribing history.? (6) Chronic pain syndrome: (7) Chronic right hip pain: Plan proceed with [employer] spinal cord stimulation trial with IV sedation under fluoroscopy. risks vs benefits reviewed. continue current medications, risks vs benefits reviewed. update UDS today. will request psych evaluation from [facility] as pt previously completed. update right hip xray to assess pain and consider hip injection if OA. continue HEP as tolerated. f/u with spinal cord stim trial lead removal.
== END 2024-08-28 07:38 | disposition home or self-care (01) ==
PROVIDERS: PCP Nurse Practitioner; Visit Provider Nurse Practitioner
DX: M96.1 Postlaminectomy syndrome, not elsewhere classified (principal); M47.816 Spondylosis without myelopathy or radiculopathy, lumbar region; M54.14 Radiculopathy, thoracic region; M48.04 Spinal stenosis, thoracic region; Z79.891 Long term (current) use of opiate analgesic; G89.4 Chronic pain syndrome; M25.551 Pain in right hip
CPT/HCPCS: G0463

== ENCOUNTER 2024-08-28 08:19 | Outpatient (OUT) | payer BC, SELFPAY ==
[2024-08-28 08:45] LABS: Bilirubin Urine NEGATIVE (NEGATIVE); Blood Urine NEGATIVE (NEGATIVE); Clarity Urine CLEAR (CLEAR); Color Urine LT. YELLOW (YELLOW); Glucose Urine UA NEGATIVE (NEGATIVE); Ketones Urine NEGATIVE (NEGATIVE); Leukocyte Esterase Urine TRACE (NEGATIVE); Nitrite Urine NEGATIVE (NEGATIVE); Protein Urine NEGATIVE (NEG/TRACE); Urobilinogen Urine 0.2 EU/dL (0.2-1.0)
[2024-08-28 08:47] LABS: Basophils Absolute Auto 0.1 10^3/uL (0.0-0.1); Basophils Percent Auto 0.8 % (0.2-2.0); Eosinophils Absolute Auto 0.2 10^3/uL (0.0-0.7); Eosinophils Percent Auto 3.2 % (0.9-7.0); Hematocrit 33.6 % (36.0-48.0); Hemoglobin 10.9 g/dL (12.0-16.0); Immature Granulocytes Abs Auto 0.01 10^3/uL (0.00-0.03); Immature Granulocytes Pct Auto 0.2 % (0.0-0.5); Lymphocytes Absolute Auto 2.8 10^3/uL (1.2-3.8); Lymphocytes Percent Auto 46.4 % (20.5-60.0); Mean Corpuscular HGB Conc 32.4 g/dL (29.9-35.2); Mean Corpuscular Hemoglobin 30.2 pg (26.7-34.0); Mean Corpuscular Volume 93.1 fL (81.0-99.0); Mean Platelet Volume 10.8 fL (9.5-13.5); Monocytes Absolute Auto 0.4 10^3/uL (0.3-0.8); Monocytes Percent Auto 6.6 % (1.7-12.0); Neutrophils Absolute Auto 2.5 10^3/uL (1.4-6.5); Neutrophils Percent Auto 42.8 % (43.0-75.0); Platelet Count 256 10^3/uL (150-450); Red Blood Count 3.61 10^6/uL (4.20-5.40); White Blood Count 5.9 10^3/uL (4.0-11.0)
[2024-08-28 08:51] LABS: Urine Microscopic Indicated YES
[2024-08-28 08:53] LABS: Bacteria Urine NONE SEEN #/HPF (NONE SEEN); Cast Seen? NONE SEEN #/LPF (NONE SEEN); Crystals Seen? None Seen #/HPF (None Seen); Mucus Urine NONE SEEN (NONE SEEN); RBC Urine 0-2 #/HPF (0-2); Squamous Epithelial Cell Urine RARE #/LPF (NONE/RARE)
[2024-08-28 10:40] LABS: Alanine Aminotransferase 26 U/L (14-59); Albumin Globulin Ratio 1.4; Albumin Level 3.7 g/dL (3.4-5.0); Alkaline Phosphatase 80 U/L (46-116); Anion Gap 10.3; Aspartate Amino Transferase 26 U/L (15-37); BUN Creatinine Ratio 24.6; Bilirubin Total 0.3 mg/dL (0.2-1.0); Calcium 9.4 mg/dL (8.5-10.1); Carbon Dioxide 28.6 mmol/L (21.0-32.0); Chloride 110 mmol/L (98-107); Chol HDL Ratio 2.4; Cholesterol 114 mg/dL (<=200); Estimated GFR (African America 50 (>=60 mL/min/1.73m^2); Estimated GFR (Non-African Ame 41 (>=60 mL/min/1.73m^2); Globulin 2.7 g/dL; Glucose 89 mg/dL (74-106); HDL Cholesterol 47 mg/dL (40-60); LDL Cholesterol Calculated 52.6 mg/dL; Potassium 3.9 mmol/L (3.5-5.1); Sodium 145 mmol/L (136-145); Total Protein 6.4 g/dL (6.4-8.2); Triglycerides 72 mg/dL (<=150); VLDL CHOLESTEROL 14.4 mg/dL
[2024-08-28 10:47] LABS: Creatinine Urine Random 105.85 mg/dL (20.00-300.00); Microalbum Creatinine Ratio Ur 12.2 mg/g (0.0-29.9); Microalbumin Urine Random <1.3 mg/dL (<=30.0)
[2024-08-29 06:07] LABS: Vitamin B12 840 pg/mL (232-1245)
== END 2024-08-28 08:20 | disposition home or self-care (01) ==
LOC: LAB 08:19
PROVIDERS: PCP Nurse Practitioner; Visit Provider Nurse Practitioner
DX: I25.10 Atherosclerotic heart disease of native coronary artery without angina pectoris (principal); N18.32 Chronic kidney disease, stage 3b; R60.0 Localized edema; E66.813 Obesity, class 3; Z68.42 Body mass index [BMI] 45.0-49.9, adult; E66.01 Morbid (severe) obesity due to excess calories; E55.9 Vitamin D deficiency, unspecified; E53.8 Deficiency of other specified B group vitamins; Z98.84 Bariatric surgery status; M96.1 Postlaminectomy syndrome, not elsewhere classified; M47.816 Spondylosis without myelopathy or radiculopathy, lumbar region; M54.14 Radiculopathy, thoracic region; M48.04 Spinal stenosis, thoracic region; G89.4 Chronic pain syndrome; M25.551 Pain in right hip; I12.9 Hypertensive chronic kidney disease with stage 1 through stage 4 chronic kidney disease, or unspecified chronic kidney disease
CPT/HCPCS: 36415; 73502; 80053; 80061; 81001; 82043; 82306; 82570; 82607; 82728; 83540; 85025; G0463

== ENCOUNTER 2024-10-07 10:57 | Outpatient (OUT) | payer BC, SELFPAY ==
--- OUTSIDE RECORDS SUMMARY | 2024-10-07 10:59 | XMS_ITS | Encounter Summary ---
Author Organization [facility] Address [address] [place] [address] Care Team Providers Care Perfect Binder Operator Name Role Phone Markel Braxton MD Primary Care Provider [phone] Janene Lew NP Unavailable [phone] Encounter Details Date Type Department Care Team (Late st Contact Info) Description 02/04/2024 Orders Only [facility] [address] [place] [phone] Becca Meneses NP [address] [place] [address] Social History Tobacco Use Types Packs/Day Years Used Date Smoking Tobacco: Never Passive Smoke Exposure: Never Smokeless Tobacco: Never Alcohol Use Standard Drinks/Week Comments Never 0 (1 standard drink = 0.6 oz pur e alcohol) caffeine: coffee, soda/pop Humiliation, Afraid, Rape, and Kick questionnair e Answer Date Recorded Within the last year, have y ou been afraid of your partner or ex-partner? No 05/02/2023 Within the last year, have y ou been humiliated or emotionally abused in other ways by your partner or ex-partner? No Within the last year, have y ou been kicked, hit, slapped, or otherwise physically hurt by your partner or ex-partner? No 05/02/2023 Within the last year, have y ou been raped or forced to have any kind of sexual activity by your partner or ex-partner? No 05/02/2023 Social Connection and Isolation Panel [NHANES] A nswer Date Recorded In a typical week, how many times do you talk on the phone with family, friends, or neighbors? Once a week 05/02/2023 How often do you get together with friends or re latives? Once a week 05/02/2023 How often do you attend sabianist or caodaism serv ices? Never 05/02/2023 Do you belong to any clubs o r organizations such as sabianist groups, unions, fraternal or athletic groups, or school groups? No 05/02/2023 How often do you attend meet ings of the clubs or organizations you belong to? Never 05/02/2023 Are you , , di vorced, , never , or living with a partner? Never 05/02/2023 AUDIT-C Answer Date Recorded Q1: How often do you have a drink containing alcohol? Never 05/02/2023 Q2: How many drinks containi ng alcohol do you have on a typical day when you are drinking? Patient does not drink Q3: How often do you have si x or more drinks on one occasion? Never 05/02/2023 Overall Financial Resource Strain (CARDIA) Answe r Date Recorded How hard is it for you to pa y for the very basics like food, housing, medical care, and heating? Very hard 05/02/2023 PHQ-2 Answer Date Recorded Patient Health Questionnaire-2 Score 0 09/20/2023 [facility] - Occupational Stress Questionnaire Answer Date Recorded Do you feel stress - tense, restless, nervous, or anxious, or unable to sleep at night because your mind is troubled all the time - these days? Rather much 05/02/2023 Exercise Vital Sign Answer Date Recorde d On average, how many days pe r week do you engage in moderate to strenuous exercise (like a brisk walk)? 0 days 05/02/2023 On average, how many minutes do you engage in exercise at this level? 0 min 05/02/2023 Hunger Vital Sign Answer Date Recorded Within the past 12 months, y ou worried that your food would run out before you got the money to buy more. Sometimes true Within the past 12 months, t he food you bought just didn't last and you didn't have money to get more. Sometimes true PRAPARE - Transportation Answer Date Re corded In the past 12 months, has l ack of transportation kept you from medical appointments or from getting medications? No 04/16 In the past 12 months, has l ack of transportation kept you from meetings, work, or from getting things needed for daily living? No 05/02/2023 Housing Stability Vital Sign Answer Mitchell e Recorded In the last 12 months, was t here a time when you were not able to pay the mortgage or rent on time? No 05/02/2023 In the last 12 months, how many places have you lived? 1 05/02/2023 In the last 12 months, was t here a time when you did not have a steady place to sleep or slept in a prison (including now)? Yes 05/02/2023 Comments Unknown Sex and Gender Information Value Date Recorded Sex Assigned at Not on file Legal Sex Female 7:05 PM EDT Gender Identity Not on file Sexual Orientation Not on file documented as of this encounter Plan of Treatment Upcoming Encounters Date Type Department Care Team (Late st Contact Info) Description 11/03/2024 10:15 AM EDT Office Visit [facility] [address] [place] [phone] Marya Loya DO [address] [place] [address] 12/04/2024 8:40 AM EDT Office Visit [facility] [address] [place] [phone] Janene Lew NP [address] [place] [phone] documented as of this encounter Procedures Procedure Name Priority Date/Time Associated Diagnosis Comments MR LUMBAR SPINE WO CONTRAST Routine 02/04/2024 10:55 AM EDT documented in this encounter Results * MR lumbar spine wo contrast (02/04/2024 10:55 AM EDT) Anatomical Region Laterality Modality Spine, L-spine Magnetic Resonan ce Becca Mneeses NP IMG MRI PROCEDURES Final Result documented in this encounter Visit Diagnoses Not on filedocumented in this encounter Additional Health Concerns Assessment Noted Time PHQ-9 Depression Total Score: 16 024 1:18 PM EST documented as of this encounter Care Teams Perfect Binder Operator Relationship Specialty Start Date End Date Markel Braxton MD [address] [place] [phone] PCP - General Family Medicine 05/03/23 Janene Lew NP [address] [place] [phone] PCP - [place] [employer] 09/15/23 documented as of this encounter
--- OUTSIDE RECORDS SUMMARY | 2024-10-07 10:59 | XMS_ITS | Encounter Summary ---
Author Organization [facility] Address [address] [place] [address] Care Team Providers Care Want Ad Clerk Name Role Phone Markel Braxton MD Primary Care Provider [phone] Janene Lew NP Unavailable [phone] Encounter Details Date Type Department Care Team (Late st Contact Info) Description 02/01/2024 Clinisync Result Encounter [facility] External Department Unsolicited Provider, Generic External Data Social History Tobacco Use Types Packs/Day Years [...] week 05/02/2023 How often do you attend buddhism or mosque serv ices? Never 05/02/2023 Do you belong to any clubs o r organizations such as buddhism groups, unions, fraternal or athletic groups, or [...] Recorded Patient Health Questionnaire-2 Score 0 09/20/2023 [facility] - Occupational Stress Questionnaire Answer Date Recorded [...] place to sleep or slept in a half-way (including now)? Yes 05/02/2023 Comments Unknown Sex and Gender Information Value Date Recorded Sex Assigned at Not on file Legal Sex Female 7:05 PM EDT Gender Identity Not on file Sexual Orientation Not on file documented as of this encounter Plan of Treatment Upcoming Encounters Date Type Department Care Team (Late st Contact Info) Description 11/03/2024 10:15 AM EDT Office Visit [facility] [address] [place] [address] Marya Loya DO [address] [place] [address] 12/04/2024 8:40 AM EDT [facility] [address] [place] [address] Janene Lew NP [address] [place] [address] documented as of this encounter Procedures Procedure Name Priority Date/Time Associated Diagnosis Comments MR LUMBAR SPINE WO CON 02/01/2024 7:33 AM EDT documented in this encounter Results * MR LUMBAR SPINE WO CON (02/01/2024 7:33 AM EDT) Anatomical Region Laterality Modality Other 02/01/2024 7:33 AM EDT Narrative 02/01/2024 7:36 AM EDT [facility] [place] [id number] Magnetic Resonance Report Signed Patient: SHARLENE HUMPHREYS MR#: [id number] : 1970 Acct:[id number] Age/Sex: 53 / F ADM Date: 01/31/24 Loc: MRI Attending Dr: Elizabeth Diamond NP Ordering Physician: Elizabeth Diamond NP Date of Service: 01/31/24 Procedure(s): MR lumbar spine wo con Accession Number(s): [id number] cc: Janene Lew NP; Elizabeth Diamond NP [facility] [address] [place] [address] Patient Name: SHARLENE HUMPHREYS MRN: [id number] date: 1970 Sex: F Assigned Patient Location: MRI Current Patient Location: Accession/Order Number: [id number] Exam Date: 01/31/2024 10:00 Report Date: 02/01/2024 07:33 At the request of: ELIZABETH DIAMOND Procedure: MR lumbar spine wo con EXAMINATION: MR lumbar spine wo con HISTORY: Lumbar Spondylosis COMPARISON: No relevant comparison available. TECHNIQUE: A variety of imaging planes and parameters were utilized for visualization of suspected pathology. FINDINGS: For the purposes of numbering, sagittal T2 image # 9 extends from the T11 vertebral body superiorly to the S4 level inferiorly. PARASPINAL AREA: Normal with no visible mass. BONES: Normal alignment with no acute fracture or spondylolisthesis. Mildly heterogeneous marrow signal. Schmorl's nodes along the superior endplate of L1 and L2 CORD/CAUDA EQUINA: Normal caliber, contour, and signal intensity. DISC LEVELS: 12-L1: Right paracentral and lateral disc herniation of the extrusion type extending posteriorly up to 5 mm measuring 1.6 cm transversely, mild superior and inferior migration.r this results in moderate to severe narrowing of the central canal down to 7.2 mm axial image #4. Degenerative changes resulting in moderate right foraminal stenosis L1-L2: Moderate degenerative disc disease is present without visible neural impingement. L2-L3: Disc desiccation. Posterior central disc protrusion. No central or foraminal stenosis L3-L4: Early degenerative disc disease is present without focal protrusion or neural impingement. L4-L5: Early degenerative disc disease is present without focal protrusion or neural impingement. L5-S1: Early degenerative disc disease is present without focal protrusion or neural impingement. MR/MR lumbar spine wo con IMPRESSION: Degenerative changes and disc herniation T12-L1 level resulting in central canal and right foraminal stenosis Electronically authenticated by: ALEX ALLEN Date: 02/01/2024 07:33 Dictated By: Alex Allen M.D. Signed By: 02/01/24735 DD/ 2 TD/TT: Aircraft Mechanic: Procedure Note Radiology, Radiologist, MD - 02/01/2024 [place] [address] Magnetic Resonance Report Signed Patient: SHARLENE HUMPHREYS AMR#: [id number] : 1970Acct:[id number] Age/Sex: 53 / FADM Date: 01/31/24 Loc: MRI Attending Dr: Elizabeth Diamond CABINETMAKER APPRENTICE Ordering Physician: Elizabeth Diamond NP Date of Service: 01/31/24 Procedure(s): MR lumbar spine wo con Accession Number(s): [id number] cc: Janene Lew CABINETMAKER APPRENTICE; Elizabeth Diamond NP [facility] [place] [id number] Patient Name: SHARLENE HUMPHREYS MRN: [id number] date: 1970 Sex: F Assigned Patient Location: MRI Current Patient Location: Accession/Order Number: [id number] Exam Date: 01/31/2024 10:00 Report Date: 02/01/2024 07:33 At the request of: ELIZABETH DIAMOND Procedure: MR lumbar spine wo con EXAMINATION: MR lumbar spine wo con HISTORY: Lumbar Spondylosis COMPARISON: No relevant comparison available. TECHNIQUE: A variety of imaging planes and parameters were utilized for visualization of suspected pathology. FINDINGS: For the purposes of numbering, sagittal T2 image # 9 extends from the T11 vertebral body superiorly to the S4 level inferiorly. PARASPINAL AREA: Normal with no visible mass. BONES: Normal alignment with no acute fracture or spondylolisthesis.Mildly heterogeneous marrow signal. Schmorl's nodes along the superior endplateof L1 and L2 CORD/CAUDA EQUINA: Normal caliber, contour, and signal intensity. DISC LEVELS: 12-L1: Right paracentral and lateral disc herniation of the extrusion type extending posteriorly up to 5 mm measuring 1.6 cm transversely, mildsuperior and inferior migration.r this results in moderate to severe narrowing ofthe central canal down to 7.2 mm axial image #4. Degenerative changesresulting in moderate right foraminal stenosis L1-L2: Moderate degenerative disc disease is present without visibleneural impingement. L2-L3: Disc desiccation. Posterior central disc protrusion. No central or foraminal stenosis L3-L4: Early degenerative disc disease is present without focal protrusionor neural impingement. L4-L5: Early degenerative disc disease is present without focal protrusionor neural impingement. L5-S1: Early degenerative disc disease is present without focal protrusionor neural impingement. MR/MR lumbar spine wo con IMPRESSION: Degenerative changes and disc herniation T12-L1 level resulting in central canal and right foraminal stenosis Electronically authenticated by: ALEX ALLEN Date: 02/01/2024 07:33 Dictated By: Alex Allen M.D. Signed By:02/01/2436 DD/ TD/TT: Aircraft Mechanic: Generic External Data Provider [facility] Final Result documented in this encounter Visit Diagnoses Not on filedocumented in this encounter Additional Health Concerns Assessment Noted Time PHQ-9 Depression Total Score: 16 024 1:18 PM EST documented as of this encounter Care Teams Want Ad Clerk Relationship Specialty Start Date End Date Markel Braxton MD [address] [place] [address] PCP - General Family Medicine 05/03/23 Janene Lew NP [address] [place] [address] PCP - [place] [employer] 09/15/23 documented as of this encounter
--- OUTSIDE RECORDS SUMMARY | 2024-10-07 10:59 | XMS_ITS | Referral Summary ---
Author Organization [facility] Address [address] [place] [address] Care Team Providers Care Signal Supervisor Name Role Phone Janene Lew MD Primary Care Provider [phone] Encounters Date Type Department Care Team Description 08/18/2024 Refill [facility] [address] [place] [address] Zhanna Yan MA from Last 3 Months Allergies Active Allergy Reactions Criticality Noted Date Comments Cephalexin Other,Rash High 06/27/2013 Doxycycline Calcium Other 06/27/2013 Empagliflozin 09/29/2022 Esomeprazole Magnesium Other 06/22/2016 Omeprazole Nausea Only 06/22/2016 Pantoprazole Nausea Only 06/22/2016 Penicillins Other,Rash High 06/27/2013 Phenergan Plain High 09/17/2015 seizures Prochlorperazine Other High 06/27/2013 seizures Promethazine Other 06/27/2013 Sulfamethoxazole Other,Rash High 06/27/2013 Sulfamethoxazole-Trimethoprim Other,Rash Low 2013 Medications aspirin 81 mg chewable tablet CHEW AND SWALLOW 1 TABLET BY MOUTH ONCE DAILY 08/22/19 23 Active buPROPion XL (Wellbutrin XL) 300 mg 24 hr tablet Take 300 mg by mouth in the morning. 12/26/19 17 Active busPIRone (Buspar) 30 mg tablet Take 20 mg by mouth in the morning and at bedtime. 08/23/19 23 Active cetirizine 10 mg capsule Take by mouth in the morning. Active cholecalciferol (Vitamin D-3) 1,250 mcg (50,000 unit) capsule Take 1 capsule every week by oral route for 28 days. Active furosemide (Lasix) 20 mg tablet Take 20 mg by mouth in the morning. 06/30/19 23 Active gabapentin (Neurontin) 300 mg capsule Take 300 mg by mouth if needed. 10/27/19 22 Active glipiZIDE (Glucotrol) 5 mg tablet Take 5 mg by mouth in the morning. 12/20/19 22 Active pioglitazone (Actos) 45 mg tablet 09/24/19 23 Active cariprazine HCl (VRAYLAR ORAL) Take 6 mg by mouth in the morning. Active ferrous sulfate 325 (65 Fe) MG tablet Take 65 mg by mouth with breakfast. Active sacubitril-valsart an (Entresto) 49-51 mg tabletIndications: Chronic diastolic heart failure (CMS/HCC) Take 1 tablet by mouth in the morning and at bedtime. 180 tablet 3 12/01/19 23 Active spironolactone (Aldactone) 25 mg tabletIndications: Essential hypertension,Chron ic diastolic heart failure (CMS/HCC) Take 1 tablet (25 mg) by mouth in the morning. 90 tablet 3 02/10/20 23 Active Additional Information Patient not taking.Reported on 12/18/2023 ARIPiprazole (Abilify) 30 mg tablet Take 1 tablet by mouth in the morning. Active lamoTRIgine (LaMICtal) 200 mg tablet Take 250 mg by mouth in the morning. Active escitalopram (Lexapro) 20 mg tablet Take 1 tablet by mouth in the morning. Active magnesium oxide (Mag-Ox) 400 mg (241.3 mg magnesium) tablet Take 1 tablet by mouth in the morning. Active tiZANidine (Zanaflex) 4 mg capsule Take 1 capsule as needed by oral route. Active amLODIPine (Norvasc) 5 mg tabletIndications: Essential hypertension Take 2 tablets (10 mg) by mouth in the morning. 180 tablet 3 05/16/19 24 Active FLUoxetine (PROzac) 10 mg capsule Take by mouth in the morning. 08/23/19 24 Active atorvastatin (Lipitor) 80 mg tabletIndications: Hyperlipidemia, unspecified hyperlipidemia type Take 1 tablet (80 mg) by mouth at bedtime. 90 tablet 3 12/18/19 24 025 Active nitroglycerin (Nitrostat) 0.4 mg SL tabletIndications: Coronary artery disease involving [place] coronary artery of [place] heart without angina pectoris Place 1 tablet as needed by sublingual route as needed; if no relief repeat in 5 mins for total of 3 tabs. If no response, seek medical attention/go to the nearest ER 90 tablet 12/18/19 24 Active metoprolol succinate XL (Toprol-XL) 25 mg 24 hr tabletIndications: Palpitations Take 0.5 tablets (12.5 mg) by mouth in the morning. 45 tablet 3 03/04/20 24 025 Active isosorbide mononitrate ER (Imdur) 30 mg 24 hr tabletIndications: Unstable angina pectoris (CMS/HCC) Take 1 tablet (30 mg) by mouth once daily as directed. 90 tablet 3 05/29/19 25 026 Active fenofibrate (Tricor) 145 mg tabletIndications: Hyperlipidemia, unspecified hyperlipidemia type Take 1 tablet (145 mg) by mouth in the morning. 90 tablet 3 06/27/19 25 026 Active Active Problems Problem Noted Date Diagnosed Date Left lower quadrant abdominal pain 12/05/2023 Overview (12/11/2023): Last Assessment & Plan: Will check xray to r/o perforation Will treat for diverticulitis: cipro and flagyl Fu if not better Advised no ETOH, as well as NO tizanidine while taking cipro Increase fiber Denies any fever, chills, NV Will call office if not better after atb If conditions worsens go to the ER Adenomatous polyp of cecum 11/12/2023 Diverticulosis large intesti ne w/o perforation or abscess w/o bleeding 11/12/2023 Acute kidney injury superimposed on CKD 10/24/19 24 Overview (12/11/2023): Last Assessment & Plan: Continue with Nephrology Hyperkalemia 10/24/2023 Hyperuricemia 10/24/2023 Iron deficiency 10/24/2023 Vitamin B12 deficiency 10/24/2023 Vitamin D deficiency 10/24/2023 Restless leg syndrome 10/23/2023 Overview (12/11/2023): Last Assessment & Plan: Continue mirapex Antibiotic-induced yeast infection 10/03/2023 Dental infection 09/20/2023 Overview (12/11/2023): Last Assessment & Plan: Presents with fever/chills, malaise, fatigue. Symptoms on going for one week. Dental extraction today for infected tooth. 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 09/11/2023 Headache, tension-type 09/11/2023 Herniation of 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 09/11/2023 History of PTCA 09/11/2023 Hypertensive nephropathy 09/11/2023 Localized edema 09/11/2023 Displacement of lumbar inter vertebral disc with radiculopathy 09/11/2023 Radiculopathy 09/11/2023 Muscle spasm 07/24/2023 E-coli UTI 07/05/2023 Abdominal wall hernia 07/02/2023 Degenerative disc disease, lumbar 07/02/2023 Elevated liver enzymes 07/02/2023 H/O bariatric surgery 07/02/2023 History of anuria 07/02/2023 Overview (09/11/2023): Last Assessment & Plan: Check urine, check labs Insomnia 07/02/2023 Irritable bowel syndrome with diarrhea Lumbar disc herniation 07/02/2023 Nephrolithiasis 07/02/2023 Colon cancer screening 05/03/2023 Encounter for screening mamm ogram for malignant neoplasm of breast 05/03/2023 Heel pain, bilateral 05/03/2023 Overview (09/11/2023): Last Assessment & Plan: Would like a referral to podiatry [facility] if possible Anemia 04/30/2023 Bradycardia 04/30/2023 GERD (gastroesophageal reflux disease) Overview (09/11/2023): Last Assessment & Plan: stable Hypomagnesemia 04/30/2023 Lower extremity edema 04/30/2023 Overview (09/11/2023): Last Assessment & Plan: Minimal today, cont diuretics Check labs Microscopic hematuria 04/30/2023 Migraine headache 04/30/2023 Spinal stenosis of lumbar region at multiple lev els 04/30/2023 Spinal stenosis of thoracolumbar region 04/30/19 24 Stage 3 chronic kidney disea se due to type 2 diabetes mellitus 04/30/2023 Overview (09/11/2023): Last Assessment & Plan: Follows with Nephrology, reports she has an upcoming appt with them in the next few weeks Swelling of both lower extremities 04/30/2023 Diastolic dysfunction 03/14/2023 03/14/2023 Dyspnea 03/14/2023 03/14/2023 Palpitations 03/14/2023 03/14/2023 Cardiovascular stress test abnormal 10/03/2022 Dehydration 12/26/2016 Morbid obesity with BMI of 50.0-59.9, adult 09/0 09/201603/14/2023 Back pain 12/15/2016 Overview (10/03/2022): sees pain mgmt Hip pain, bilateral 12/15/2016 Anxiety 12/15/2016 Arthritis 12/15/2016 Diabetes mellitus 12/15/2016 Heart disease 12/15/2016 03/14/2023 Seasonal allergies 12/15/2016 03/14/2023 Chronic diastolic heart failure 08/26/2015 Coronary arteriosclerosis in [place] artery 08/25 Morbid obesity 08/26/2015 03/14/2023 Obstructive sleep apnea syndrome 08/26/2015 03/14/2023 Abdominal pain, other specified site 06/27/2013 Irregular bowel habits 06/27/2013 3 Chest pain 06/09/2013 Angina pectoris 03/22/2012 Coronary atherosclerosis 03/22/2012 Bipolar disorder 03/22/2012 Depression 03/22/2012 Essential hypertension 03/22/2012 3 Fibrocystic disease of breast 03/22/2012 Generalized anxiety disorder 03/22/2012 Hyperlipidemia 03/22/2012 03/14/2023 Type 2 diabetes mellitus without complication 03/14/2023 Social History Tobacco Use Types Packs/Day Years Used Date Smoking Tobacco: Never Smokeless Tobacco: Never Tobacco Cessation:Counseling Given: No Alcohol Use Standard Drinks/Week Comments Not Currently 0 (1 standard drink = 0.6 oz pur e alcohol) [place] Safety & Environment Answer Date Rec orded Fear of Current or Ex-Partner Not on file Emotionally Abused Not on file 06/07/2023 Physically Abused Not on file 06/07/2023 Sexually Abused Not on file 06/07/2023 Physically or Sexually Abused Not on file Comments Unknown Sex and Gender Information Value Date Recorded Sex Assigned at Not on file Legal Sex Female 10:36 PM EDT Gender Identity Not on file Sexual Orientation Not on file Last Filed Vital Signs Vital Sign Reading Time Taken Comments Blood Pressure 144/76 12/18/2023 1:09 PM EDT Pulse 67 12/18/2023 1:09 PM EDT Temperature - - Respiratory Rate 15 11/13/2023 9:08 AM EDT Oxygen Saturation 99% 12/18/2023 1:09 PM EDT Inhaled Oxygen Concentration - - Weight 127 kg (280 lb) 12/18/2023 1:09 PM EDT Height 165.1 cm (5' 5 ) 12/18/2023 1:09 PM EDT Body Mass Index 46.59 12/18/2023 1:09 PM EDT Plan of Treatment Not on file Insurance [facility] Care Teams Signal Supervisor Relationship Specialty Start Date End Date Janene Lew MD [address] [place] [address] PCP - General 09/26/22
--- OUTSIDE RECORDS SUMMARY | 2024-10-07 10:59 | XMS_ITS | Clinical Summary ---
Author Organization [facility] Address [address] [place] [address] Care Team Providers Care Time Recorder Name Role Phone Janene Lew MD Primary Care Provider [phone] Allergies Active Allergy Reactions Criticality Noted Date [...] mg SL tabletIndications: Coronary artery disease involving united [place]uburn coronary artery of united [place]uburn heart without angina pectoris Place 1 tablet [...] Acute kidney injury superimposed on CKD 10/24/19 Overview (12/11/2023): Last Assessment & Plan: Continue [...] Plan: Would like a referral to podiatry Srinivas if possible Anemia 04/30/2023 Bradycardia 04/30/2023 GERD (gastroesophageal reflux disease) 01/15/202 4 Overview (09/11/2023): Last Assessment & Plan: stable Hypomagnesemia 04/30/2023 Lower extremity edema 04/30/2023 Overview (09/11/2023): Last Assessment & Plan: Minimal today, cont diuretics Check labs Microscopic hematuria 04/30/2023 Migraine headache 04/30/2023 Spinal stenosis of lumbar region at multiple lev els 04/30/2023 Spinal stenosis of thoracolumbar region 04/30/19 Stage 3 chronic kidney disea se due [...] diastolic heart failure 08/26/2015 Coronary arteriosclerosis in united [place]urn artery 08/25 Morbid obesity 08/26/2015 03/14/2023 Obstructive sleep apnea syndrome 08/26/2015 03/14/2023 Abdominal pain, other specified site 06/27/2013 Irregular bowel habits 06/27/2013 Chest pain 06/09/2013 Angina pectoris 03/22/2012 Coronary atherosclerosis 03/22/2012 Bipolar disorder 03/22/2012 Depression 03/22/2012 Essential hypertension 03/22/2012 Fibrocystic disease of breast 03/22/2012 Generalized anxiety disorder 03/22/2012 Hyperlipidemia 03/22/2012 03/14/2023 Type 2 diabetes mellitus without complication 03/14/2023 Encounters Date Type Department Care Team Description 08/18/2024 Refill [facility] [address] [place] [address] Zhanna Yan MA from Last 3 Months Social History Tobacco Use Types Packs/Day Years [...] 12/18/2023 1:09 PM EDT Plan of Treatment Health Maintenance Due Date Last Done Comments CT Colonography 1970 Diabetes: Hemoglobin A1C 1970 FIT-DNA 1970 FIT 1970 FOBT 1970 Sigmoidoscopy 1970 Diabetes: Retinopathy Screening 1980 Depression Screening 1982 Pap Smear 12/25/1991 Cervical Cancer Screening 2000 HPV/Cotest 2000 Mammogram 2010 COVID-19 Vaccine ( season) 2024 01/24/2024, 02/09/2023, 05/16/2021, Additional history exists Pneumococcal Vaccine: Pediatrics (0 to 5 Years) and At-Risk Patients (6 to 64 Years) (3 of 3 - PCV20 or PCV21) 03/10/2025 03/10/2020, 02/16/2020, 04/16/2011, Additional history exists Adult Tetanus 12/20/2031 12/19/2021 Colonoscopy 10/31/2033 11/01/2023, 07/29/2013 Colorectal Cancer Screening 10/31/2033 Hepatitis B Vaccines Completed 07/03/2022, 01/20/2022, 12/19/2021 Zoster Vaccines Completed 07/03/2022, 12/19/2021 Influenza Vaccine Completed 01/24/2024, , 12/19/2021, Additional history exists HIB Vaccines Aged Out No longer eligi ble based on patient's age to complete this topic HPV Vaccines Aged Out No longer eligi ble based on patient's age to complete this topic IPV Vaccines Aged Out No longer eligi ble based on patient's age to complete this topic Meningococcal B Vaccine Aged Out No l onger eligible based on patient's age to complete this topic Meningococcal Vaccine Aged Out No mikayla britta eligible based on patient's age to complete this topic Rotavirus Vaccines Aged Out No longer eligible based on patient's age to complete this topic [facility] Care Teams Time Recorder Relationship Specialty Start Date End Date Janene Lew MD [facility] [place] [address] PCP - General 09/26/22
--- OUTSIDE RECORDS SUMMARY | 2024-10-07 11:00 | XMS_ITS | Encounter Summary ---
Author Organization [facility] Address [address] [place] [address] Care Team Providers Care Novelty Printing Machine Operator Name Role Phone Markel Braxton MD Primary Care Provider [phone] Janene Lew NP Unavailable [phone] Encounter Details Date Type Department Care Team (Late st Contact Info) Description 05/10/2023 Clinisync Result Encounter [facility] External Department Unsolicited Provider, Generic External Data Social History Tobacco Use Types Packs/Day Years Used Date Smoking Tobacco: Never Alcohol Use Standard Drinks/Week Comments Not Currently [...] week 05/02/2023 How often do you attend orthodox or denominational serv ices? Never 05/02/2023 Do you belong to any clubs o r organizations such as orthodox groups, unions, fraternal or athletic groups, or [...] Answer Date Recorded Patient Health Questionnaire-2 Score 4 05/03/2023 [facility] - Occupational Stress [...] place to sleep or slept in a alf (including now)? Yes 05/02/2023 Comments Unknown Sex [...] [address] [place] [address] Marya Loya DO [address] [place] [address] 12/04/2024 8:40 AM EDT Office Visit [facility] [address] [place] [phone] Janene Lew NP [address] [place] [address] documented as of this encounter Procedures Procedure Name Priority Date/Time Associated Diagnosis Comments CA ECHO DOPPLER COMPLETE 05/10/2023 2:37 PM EST documented in this encounter Results * CA ECHO DOPPLER COMPLETE (05/10/2023 2:37 PM EST) Anatomical Region Laterality Modality Other 05/10/2023 2:37 PM EST Narrative 05/10/2023 2:39 PM EST The [address] [address] Cardiology Report Signed Patient: SHARLENE HUMPHREYS MR#: [id number] : 1970 Acct:[id number] Age/Sex: 52 / F ADM Date: 05/10/23 Loc: CARD Attending Dr: Radu Arias NP Ordering Physician: Radu Arias NP Date of Service: 05/10/23 Procedure(s): CA echo doppler complete Accession Number(s): [id number] cc: Janene Lew NP; Radu Arias NP Patient Name: SHARLENE HUMPHREYS MR#: [id number] : 1970 Exam Date: 05/10/2023 Ordering Doctor: MRS. CASTILLO STCAI THAPA ECHOCARDIOGRAM REPORT PROCEDURE: CA ECHO DOPPLER COMPLETE INDICATIONS: Shortness of breath COMPARISON: None. DESCRIPTION: COMPLETE ECHOCARDIOGRAM Real-time transthoracic echocardiography with 2D, M-mode, spectral and color flow Doppler performed. QUALITY: Technical quality was good. LEFT VENTRICLE: The left ventricle is dilated. Mild concentric left ventricular hypertrophy. LV EF: Global left ventricular systolic function is normal. Calculated left ventricular ejection fraction is 58% DIASTOLIC: Grade II diastolic dysfunction. ATRIAL SEPTUM: Inadequately seen. LEFT ATRIUM: Moderate dilatation. RIGHT ATRIUM: Mild dilatation. RIGHT VENTRICLE: Mild dilatation. Normal right ventricular systolic function. TRICUSPID VALVE: Normal mobility and thickness. No stenosis with mild regurgitation. Mild pulmonary hypertension. RVSP 36mmHg MITRAL VALVE: Normal mobility and thickness. No evidence of mitral valve stenosis. There is no mitral annular calcification. Mild mitral regurgitation. AORTIC VALVE: Normal trileaflet appearance. No visible sclerosis. Normal leaflet mobility. No evidence of aortic valve stenosis. No aortic regurgitation. AORTIC ROOT: Normal diameter and appearance. PULMONIC VALVE: Normal thickness and mobility. No stenosis. Trivial regurgitation. PERICARDIUM: Anterior free space; trivial effusion versus fat pad. IVC: Collapses with inspirations. Normal size CONCLUSION: 1. Global left ventricular systolic is normal; visually estimated ejection fraction is 55 to 60% 2. The right ventricle is mildly dilated with normal systolic function 3. Mildly increased left ventricular wall thickness 4. Grade 2, moderate diastolic dysfunction 5. Biatrial enlargement 6. Mild tricuspid regurgitation 7. Mildly elevated right ventricular systolic pressure 8. Mild mitral regurgitation 9. Anterior free space; trivial effusion versus fat pad Adult Echocardiography Procedure Report Left Ventricle LVEDD (3.7 - 5.6 cm): 6.21 cm LVESD (2.2 - 4.0 cm): 3.81 cm LVIVS thickness (0.6 - 1.2 cm): 1.24 cm LVPW thickness (0.5 - 1.0 cm): 1.21 cm e': 0.07 m/s E - e': 15.23 LVOT Max Gradient: 6.81 mm[Hg] LVOT Area (cm2): 1.30 m/s Peak Velocity (LVOT): 1.30 m/s Mean Velocity (LVOT): 0.94 m/s LVOT Diameter 2.12 cm Left Ventricular Ejection Fraction: 57.67 % Left Atrium LA Volume Index (2D A2C): 45.87 ml/m2 Left Atrium Systolic Dimension: 4.23 cm Mitral Valve MV E to A Ratio: 1.11 Mitral Valve A-Wave Peak Velocity: 1.00 m/s Mitral Valve E-Wave Peak Velocity: 1.10 m/s Right Ventricle RV Internal Diastolic Dimension: 4.06 cm Aorta AO Root Diam: 3.10 cm Ascending Ao Diam: 3.17 cm Aortic Valve AoV Area (Peak Gabo): 2.43 cm2, 2.43 cm2 AoV Area (VTI): 2.39 cm2, 2.39 cm2 Peak Velocity(Antegrade Flow): 1.89 m/s Peak Gradient(Antegrade Flow): 14.26 mm[Hg] Mean Velocity(Antegrade Flow): 1.29 m/s Mean Gradient(Antegrade Flow): 7.63 mm[Hg] Velocity Time Integral: 49.45 cm Tricuspid Valve Peak Velocity (Regurgitant Flow): 2.77 m/s, 2.49 m/s, 2.86 m/s Pulmonic Valve Mean Gradient: 2.83 mm[Hg], 2.83 mm[Hg], 3.65 mm[Hg] Mean Velocity: 0.78 m/s, 0.79 m/s, 0.94 m/s Peak Velocity: 1.15 m/s Peak Gradient: 5.30 mm[Hg], 4.94 mm[Hg], 5.76 mm[Hg] Right Atrium Right Atrium Systolic Pressure: 45.10 ml, 45.10 ml Dictated by: Tk Godoy M.D. on 05/10/2023 at 14:33 Approved by: Tk Godoy M.D. on 05/10/2023 at 14:37 Dictated By: Tk Godoy M.D. Signed By: 05/10/23 1439 DD/ 1437 TD/TT: Doctor Of Dental Medicine: Procedure Note Radiology, Radiologist, MD - 05/10/2023 [place] [address] Cardiology Report Signed Patient: SHARLENE HUMPHREYS AMR#: [id number] : 1970Acct:[id number] Age/Sex: 52 / FADM Date: 05/10/23 Loc: CARD Attending Dr: Radu Arias NP Ordering Physician: Radu Arias NP Date of Service: 05/10/23 Procedure(s): CA echo doppler complete Accession Number(s): [id number] cc: Janene Lew NP; Radu Arias NP Patient Name: SHARLENE HUMPHREYS MR#: [id number] : 1970 Exam Date: 05/10/2023 Ordering Doctor: MRS. RADU ARIAS NP ECHOCARDIOGRAM REPORT PROCEDURE: CA ECHO DOPPLER COMPLETE INDICATIONS: Shortness of breath COMPARISON: None. DESCRIPTION: COMPLETE ECHOCARDIOGRAM Real-time transthoracic echocardiography with 2D, M-mode, spectral and color flow Dopplerperformed. QUALITY: Technical quality was good. LEFT VENTRICLE: The left ventricle is dilated. Mild concentric left ventricular hypertrophy. LV EF: Global left ventricular systolic function is normal. Calculated left ventricular ejection fraction is 58% DIASTOLIC: Grade II diastolic dysfunction. ATRIAL SEPTUM: Inadequately seen. LEFT ATRIUM: Moderate dilatation. RIGHT ATRIUM: Mild dilatation. RIGHT VENTRICLE: Mild dilatation. Normal right ventricular systolic function. TRICUSPID VALVE: Normal mobility and thickness. No stenosis with mild regurgitation. Mild pulmonary hypertension. RVSP 36mmHg MITRAL VALVE: Normal mobility and thickness. No evidence of mitralvalve stenosis. There is no mitral annular calcification. Mild mitral regurgitation. AORTIC VALVE: Normal trileaflet appearance. No visible sclerosis.Normal leaflet mobility. No evidence of aortic valve stenosis. No aortic regurgitation. AORTIC ROOT: Normal diameter and appearance. PULMONIC VALVE: Normal thickness and mobility. No stenosis. Trivial regurgitation. PERICARDIUM: Anterior free space; trivial effusion versus fat pad. IVC: Collapses with inspirations. Normal size CONCLUSION: 1. Global left ventricular systolic is normal; visually estimated ejection fraction is 55 to 60% 2. The right ventricle is mildly dilated with normal systolic function 3. Mildly increased left ventricular wall thickness 4. Grade 2, moderate diastolic dysfunction 5. Biatrial enlargement 6. Mild tricuspid regurgitation 7. Mildly elevated right ventricular systolic pressure 8. Mild mitral regurgitation 9. Anterior free space; trivial effusion versus fat pad Adult Echocardiography Procedure Report Left Ventricle LVEDD (3.7 - 5.6 cm): 6.21 cm LVESD (2.2 - 4.0 cm): 3.81 cm LVIVS thickness (0.6 - 1.2 cm): 1.24 cm LVPW thickness (0.5 - 1.0 cm): 1.21 cm e': 0.07 m/s E - e': 15.23 LVOT Max Gradient: 6.81 mm[Hg] LVOT Area (cm2): 1.30 m/s Peak Velocity (LVOT): 1.30 m/s Mean Velocity (LVOT): 0.94 m/s LVOT Diameter 2.12 cm Left Ventricular Ejection Fraction: 57.67 % Left Atrium LA Volume Index (2D A2C): 45.87 ml/m2 Left Atrium Systolic Dimension: 4.23 cm Mitral Valve MV E to A Ratio: 1.11 Mitral Valve A-Wave Peak Velocity: 1.00 m/s Mitral Valve E-Wave Peak Velocity: 1.10 m/s Right Ventricle RV Internal Diastolic Dimension: 4.06 cm Aorta AO Root Diam: 3.10 cm Ascending Ao Diam: 3.17 cm Aortic Valve AoV Area (Peak Gabo): 2.43 cm2, 2.43 cm2 AoV Area (VTI): 2.39 cm2, 2.39 cm2 Peak Velocity(Antegrade Flow): 1.89 m/s Peak Gradient(Antegrade Flow): 14.26 mm[Hg] Mean Velocity(Antegrade Flow): 1.29 m/s Mean Gradient(Antegrade Flow): 7.63 mm[Hg] Velocity Time Integral: 49.45 cm Tricuspid Valve Peak Velocity (Regurgitant Flow): 2.77 m/s, 2.49 m/s, 2.86 m/s Pulmonic Valve Mean Gradient: 2.83 mm[Hg], 2.83 mm[Hg], 3.65 mm[Hg] Mean Velocity: 0.78 m/s, 0.79 m/s, 0.94 m/s Peak Velocity: 1.15 m/s Peak Gradient: 5.30 mm[Hg], 4.94 mm[Hg], 5.76 mm[Hg] Right Atrium Right Atrium Systolic Pressure: 45.10 ml, 45.10 ml Dictated by: Tk Godoy M.D. on 05/10/2023 at 14:33 Approved by: Tk Godoy M.D. on 05/10/2023 at 14:37 Dictated By: Tk Godoy M.D. Signed By:05/10/23 1439 DD/ 1437 TD/TT: Doctor Of Dental Medicine: us Generic External Data Provider [facility] Final Result documented in this encounter Visit Diagnoses Not on filedocumented in this encounter Additional Health Concerns Assessment Noted Time PHQ-9 Depression Total Score: 16 024 1:18 PM EST documented as of this encounter Care Teams Novelty Printing Machine Operator Relationship Specialty Start Date End Date Markel Braxton MD [address] [place] [address] PCP - General Family Medicine 05/03/23 Janene Lew NP [address] [place] [address] PCP - [employer] 09/15/23 documented as of this encounter
--- OUTSIDE RECORDS SUMMARY | 2024-10-07 11:00 | XMS_ITS | Clinical Summary ---
Author Organization [facility] Address [address] [place] [address] Phone Care Team Providers Care Systems Integration Analyst Name Role Phone Unavailable Primary Care Provider Unavailabl e Social History Tobacco Use Types Packs/Day Years Used Date Smoking Tobacco: Never Assessed Comments Unknown Sex and Gender Information Value Date Recorded Sex Assigned at Not on file Legal Sex Female 8:43 AM EST Gender Identity Not on file Sexual Orientation Not on file Plan of Treatment Not on file
--- OUTSIDE RECORDS SUMMARY | 2024-10-07 11:00 | XMS_ITS | Encounter Summary ---
Author Organization [facility] Address [address] [place] [address] Care Team Providers Care Utility Service Worker Name Role Phone Markel Braxton MD Primary Care Provider [phone] Janene Lew NP Unavailable [phone] Encounter Details Date Type Department Care Team (Late st Contact Info) Description 04/21/2024 Clinisync Result Encounter [facility] External Department Unsolicited [...] week 05/02/2023 How often do you attend episcopalian or gnosticist serv ices? Never 05/02/2023 Do you belong to any clubs o r organizations such as episcopalian groups, unions, fraternal or athletic groups, or [...] Date Recorded Patient Health Questionnaire-2 Score 0 02/19/2024 [facility] Questionnaire Answer Date Recorded [...] [address] [place] [address] Marya Loya DO [address] [place] [address] 12/04/2024 8:40 AM EDT [facility] [address] [place] [address] Janene Lew NP [address] [place] [address] documented as of this encounter Procedures Procedure Name Priority Date/Time Associated Diagnosis Comments XR LUMBAR SPINE MIN 4V 04/21/2024 6:29 AM EST documented in this encounter Results * XR LUMBAR SPINE MIN 4V (04/21/2024 6:29 AM EST) Anatomical Region Laterality Modality Other 04/21/2024 6:29 AM EST Narrative 04/21/2024 6:32 AM EST The [address] [address] XRay Report Signed Patient: SHARLENE HUMPHREYS MR#: [id number] : 1970 Acct:[id number] Age/Sex: 53 / F ADM Date: 04/18/24 Loc: EC Attending Dr: Kelly Loya M.D. Ordering Physician: Kelly Loya M.D. Date of Service: 04/18/24 Procedure(s): XR lumbar spine min 4V Accession Number(s): [id number] cc: Janene Lew DIRECTOR OF PSYCHOLOGY; Kelly Loya M.D. The [address] [address] Patient Name: SHARLENE HUMPHREYS MRN: [id number] date: 1970 Sex: F Assigned Patient Location: Current Patient Location: Accession/Order Number: [id number] Exam Date: 04/18/2024 08:38 Report Date: 04/21/2024 06:29 At the request of: KELLY LOYA Procedure: XR lumbar spine min 4V EXAMINATION: XR lumbar spine min 4V HISTORY: LUMBAR SPINE PAIN COMPARISON: MRI lumbar spine 01/31/2024 FINDINGS: BONES: Mild/moderate degenerative facet arthropathy L3-L4 through L5-S1. No fracture, spondylolisthesis, or change in alignment during flexion and extension. Mild right convex curvature of thoracolumbar spine. DISC SPACES: Mild narrowing L1-L2, L5-S1. PARASPINOUS: Negative. No paraspinous abnormality is seen. OTHER: Negative. XR/XR lumbar spine min 4V IMPRESSION: 1. Mild degenerative changes. 2. No change in alignment during flexion and extension. Electronically authenticated by: JOSE RAUL HENDRICKS Date: 04/21/2024 06:29 Dictated By: Jose Raul Hendricks M.D. Signed By: 04/21/2432 DD/ 8 TD/TT: Clerical Assigner: Procedure Note Radiology, Radiologist, MD - 04/21/[address] [place] [address] XRay Report Signed Patient: SHARLENE HUMPHREYS AMR#: [id number] : 1970Acct:[id number] Age/Sex: 53 / FADM Date: 04/18/24 Loc: EC Attending Dr: Kelly Loya M.D. Ordering Physician: Kelly Loya M.D. Date of Service: 04/18/24 Procedure(s): XR lumbar spine min 4V Accession Number(s): [id number] cc: Janene Lew DIRECTOR OF PSYCHOLOGY; Kelly Loya M.D. [place] [id number] Patient Name: SHARLENE HUMPHREYS MRN: [id number] date: 1970 Sex: F Assigned Patient Location: Current Patient Location: Accession/Order Number: [id number] Exam Date: 04/18/2024 08:38 Report Date: 04/21/2024 06:29 At the request of: KELLY LOYA Procedure: XR lumbar spine min 4V EXAMINATION: XR lumbar spine min 4V HISTORY: LUMBAR SPINE PAIN COMPARISON: MRI lumbar spine 01/31/2024 FINDINGS: BONES: Mild/moderate degenerative facet arthropathy L3-L4 through L5-S1.No fracture, spondylolisthesis, or change in alignment during flexion and extension. Mild right convex curvature of thoracolumbar spine. DISC SPACES: Mild narrowing L1-L2, L5-S1. PARASPINOUS: Negative. No paraspinous abnormality is seen. OTHER: Negative. XR/XR lumbar spine min 4V IMPRESSION: 1. Mild degenerative changes. 2. No change in alignment during flexion and extension. Electronically authenticated by: JOSE RAUL HENDRICKS Date: 04/21/2024 06:29 Dictated By: Jose Raul Hendricks M.D. Signed By:04/21/2432 DD/ 8 TD/TT: Clerical Assigner: us Generic External Data Provider [facility] Final Result documented in this encounter Visit Diagnoses Not on filedocumented in this encounter Additional Health Concerns Assessment Noted Time PHQ-9 Depression Total Score: 16 024 1:18 PM EST documented as of this encounter Care Teams Utility Service Worker Relationship Specialty Start Date End Date Markel Braxton MD [address] [place] [address] PCP - General Family Medicine 05/03/23 Janene Lew NP [address] [place] [address] PCP - Marshall Jaimes 09/15/23 documented as of this encounter
--- OUTSIDE RECORDS SUMMARY | 2024-10-07 11:00 | XMS_ITS | Encounter Summary ---
Author Organization [facility] Address [address] [place] [address] Care Team Providers Care Seasonal Sales Associate Name Role Phone Markel Braxton MD Primary Care Provider [phone] Encounter Details Date Type Department Care Team (Late st Contact Info) Description 08/28/2024 Orders Only [facility] [address] [place] [phone] Becca Meneses, [address] [id number] Social History Tobacco Use Types Packs/Day Years [...] week 05/02/2023 How often do you attend synagogue or alevism serv ices? Never 05/02/2023 Do you belong to any clubs o r organizations such as synagogue groups, unions, fraternal or athletic groups, or [...] Date Recorded Patient Health Questionnaire-2 Score 0 06/16/2024 [facility] - Occupational [...] place to sleep or slept in a care home (including now)? Yes 05/02/2023 Comments Unknown Sex [...] [address] [place] [address] Marya Loya DO [address] [place] [address] 12/04/2024 8:40 AM EDT Office Visit [facility] [address] [place] [address] Janene Lew, ELIER [address] [place] [address] documented as of this encounter Procedures Procedure Name Priority Date/Time Associated Diagnosis Comments XR HIP 2 OR 3 VW RIGHT Routine 08/28/2024 10:40 AM EDT documented in this encounter Results * XR hip right 2 or 3 views (08/28/2024 10:40 AM EDT) Anatomical Region Laterality Modality Lower Extremities, Hip Right Radiograp hic Imaging us Becca Meneses SPACE CONTROL SUPERVISOR IMG XR PROCEDURES Final Result documented in this encounter Visit Diagnoses Not on filedocumented in this encounter Additional Health Concerns Assessment Noted Time PHQ-9 Depression Total Score: 16 024 1:18 PM EST documented as of this encounter Care Teams Seasonal Sales Associate Relationship Specialty Start Date End Date Markel Braxton MD [address] [facility] [place] [address] PCP - General Family Medicine 05/03/23 documented as of this encounter
--- OUTSIDE RECORDS SUMMARY | 2024-10-07 11:00 | XMS_ITS | Encounter Summary ---
Author Organization [facility] Address [address] [place] [address] Care Team Providers Care Dialysis Clinical Manager Name Role Phone Markel Braxton MD Primary Care Provider [phone] Janene Lew NP Unavailable [phone] Encounter Details Date Type Department Care Team (Late st Contact Info) Description 09/28/2023 Clinisync Result Encounter [facility] External Department Unsolicited Janene Lew, ELIER [address] [place] [address] Social History Tobacco Use Types Packs/Day Years [...] week 05/02/2023 How often do you attend rastafari or gnosticist serv ices? Never 05/02/2023 Do you belong to any clubs o r organizations such as rastafari groups, unions, fraternal or athletic groups, or [...] Recorded Patient Health Questionnaire-2 Score 0 09/20/2023 [facility] - Occupational Stress Questionnaire Answer Date [...] place to sleep or slept in a [facility] (including now)? Yes 05/02/2023 Comments Unknown Sex [...] [address] [place] [phone] Marya Loya DO [address] [place] [address] 12/04/2024 8:40 AM EDT Office Visit [facility] [address] [place] [address] Janene Lew NP [address] [place] [address] documented as of this encounter Procedures Procedure Name Priority Date/Time Associated Diagnosis Comments MM TOMOSYNTHESIS SCREENING BI 09/28/2023 10:49 AM EDT documented in this encounter Results * MM TOMOSYNTHESIS SCREENING BI (09/28/2023 10:49 AM EDT) Anatomical Region Laterality Modality Other 09/28/2023 10:4 9 AM EDT Narrative 09/28/2023 10:50 AM EDT [facility] [place] [id number] Mammography Report Signed Patient: SHARLENE HUMPHREYS MR#: [id number] : 1970 Acct:[id number] Age/Sex: 52 / F ADM Date: 09/28/23 Loc: MAMMO Attending Dr: Janene Lew NP Ordering Physician: Janene Lwe NP Results: Date of Service: 09/28/23 Follow Up: Procedure(s): MM tomosynthesis screening BI Accession Number(s): [id number] cc: Janene Lew NP Patient Name: SHARLENE HUMPHREYS MR#: [id number] : 1970 Exam Date: 09/28/2023 Ordering Doctor: AGUSTINA Lew CNP RADIOLOGY REPORT PROCEDURE: MM TOMOSYNTHESIS SCREENING BI COMPARISON: MG MAMM SCREEN 3D ORESTES CAD, 12/30/2020. MG MAMM SCREEN 3D ORESTES CAD, 03/29/2022. INDICATIONS: Screening Calculator Name NCI Breast Cancer Risk Assessment Tool 5 Year Breast Cancer Risk 1.10% Lifetime Breast Cancer Risk 8.80% Personal Breast Cancer No Personal Ovarian Cancer No Treatments None Family Cancers Mother with head/neck cancer at age 73. LOCATION: [facility] BREAST COMPOSITION: There are scattered areas of fibroglandular density. FINDINGS: DIAGNOSTIC CATEGORY 1--NEGATIVE. NO CHANGE FROM COMPARISON ASSESSMENT. Scattered benign-appearing calcifications are present. RIGHT BREAST: No significant suspicious finding. LEFT BREAST: No significant suspicious finding. RECOMMENDATIONS: ROUTINE MAMMOGRAM AND CLINICAL EVALUATION IN 12 MONTHS. PLEASE NOTE: A NORMAL MAMMOGRAM DOES NOT EXCLUDE THE POSSIBILITY OF BREAST CANCER. A CLINICALLY SUSPICIOUS PALPABLE LUMP SHOULD BE BIOPSIED. Dictated by: Jarrett Weiss MD on 09/28/2023 at 09:56 Approved by: Jarrett Weiss MD on 09/28/2023 at 10:49 Dictated By: Jarrett Weiss M.D. Signed By: 09/28/23 1050 DD/ 1049 TD/TT: [facility] Worker: Procedure Note Radiology, Radiologist, MD - 09/28/2023 [facility] [id number] Mammography Report Signed Patient: SHARLENE HUMPHREYS AMR#: [id number] : 1970Acct:[id number] Age/Sex: 52 / FADM Date: 09/28/23 Loc: MAMMO Attending Dr: Janene Lew NP Ordering Physician: Janene Lew NPResults: Date of Service: 09/28/23Follow Up: Procedure(s): MM tomosynthesis screening BI Accession Number(s): [id number] cc: Janene Lew NP Patient Name: SHARLENE HUMPHREYS MR#: [id number] : 1970 Exam Date: 09/28/2023 Ordering Doctor: AGUSTINA Lew CNP RADIOLOGY REPORT PROCEDURE: MM TOMOSYNTHESIS SCREENING BI COMPARISON: MG MAMM SCREEN 3D ORESTES CAD, 12/30/2020. MG MAMM SCREEN 3DBIL CAD, 03/29/2022. INDICATIONS: Screening Calculator Name NCI Breast Cancer Risk Assessment Tool 5 Year Breast Cancer Risk 1.10% Lifetime Breast Cancer Risk 8.80% Personal Breast Cancer No Personal Ovarian Cancer No Treatments None Family Cancers Mother with head/neck cancer at age 73. LOCATION: [facility] BREAST COMPOSITION: There are scattered areas of fibroglandulardensity. FINDINGS: DIAGNOSTIC CATEGORY 1--NEGATIVE. NO CHANGE FROM COMPARISON ASSESSMENT. Scattered benign-appearing calcifications are present. RIGHT BREAST: No significant suspicious finding. LEFT BREAST: No significant suspicious finding. RECOMMENDATIONS: ROUTINE MAMMOGRAM AND CLINICAL EVALUATION IN 12 MONTHS. PLEASE NOTE: A NORMAL MAMMOGRAM DOES NOT EXCLUDE THE POSSIBILITY OFBREAST CANCER. A CLINICALLY SUSPICIOUS PALPABLE LUMP SHOULD BE BIOPSIED. Dictated by: Jarrett Weiss MD on 09/28/2023 at 09:56 Approved by: Jarrett Weiss MD on 09/28/2023 at 10:49 Dictated By: Jarrett Weiss M.D. Signed By:09/28/23 1050 DD/ 1049 TD/TT: [facility] Worker: Janene Lew NP [facility] Final Result documented in this encounter Visit Diagnoses Not on filedocumented in this encounter Additional Health Concerns Assessment Noted Time PHQ-9 Depression Total Score: 16 024 1:18 PM EST documented as of this encounter Care Teams Dialysis Clinical Manager Relationship Specialty Start Date End Date Markel Braxton MD [address] [place] [address] PCP - General Family Medicine 05/03/23 Janene Lew NP [address] [place] [address] PCP - Marshall Jaimes 09/15/23 documented as of this encounter
--- OUTSIDE RECORDS SUMMARY | 2024-10-07 11:00 | XMS_ITS | Encounter Summary ---
Author Organization [facility] Address [address] [place] [address] Care Team Providers Care Testing Engineer Name Role Phone Janene Lew MD Primary Care Provider Reason for Visit * Reason Comments Med Refill Encounter Details Date Type Department Care Team (Late st Contact Info) Description 11/22/2022 Refill [facility] Heart [facility] [address] [place] [phone] Radu Arias CNP Essential hypertension Social History Tobacco Use Types Packs/Day Years Used Date Smoking Tobacco: Never Assessed Comments Unknown Sex and Gender Information Value Date Recorded Sex Assigned at Not on file Legal Sex Female 10:36 PM EDT Gender Identity Not on file Sexual Orientation Not on file documented as of this encounter Plan of Treatment Not on file documented as of this encounter Visit Diagnoses Diagnosis Essential hypertension Unspecified essential hypertension documented in this encounter Care Teams Testing Engineer Relationship Specialty Start Date End Date Janene Lew MD [address] [place] [address] PCP - General 09/26/22 documented as of this encounter
--- OUTSIDE RECORDS SUMMARY | 2024-10-07 11:00 | XMS_ITS | Clinical Summary ---
Author Organization [facility] Address [id number] [address] [place] [address] Care Team Providers Care Handle Machine Operator Name Role Phone Markel Braxton MD Primary Care Provider [phone] Allergies Active Allergy Reactions Criticality Noted Date Comments Cephalexin Rash High 09/17/2015 Esomeprazole Magnesium Vomiting 06/22/2016 Omeprazole Nausea 06/22/2016 Penicillin Rash High 09/17/2015 Phenergan Plain High 09/17/2015 seizures Prochlorperazine High 09/17/2015 seizures Pantoprazole Nausea 06/22/2016 Sulfamethoxazole Rash High 09/17/2015 Sulfamethoxazole-Trimethoprim Rash Low 2016 Medications cyproheptadine (PERIACTIN) 4 mg tablet Take 4 mg by mouth once daily at bedtime. 12/08/19 17 Active carvedilol (COREG) 25 mg tablet Take 25 mg by mouth 2 (two) times a day with meals. 12/26/19 17 Active ARIPiprazole (ABILIFY) 10 mg tablet Take 10 mg by mouth daily. 12/26/19 17 Active atorvastatin (LIPITOR) 80 mg tabletIndications: hyperlipidemia Take 80 mg by mouth once daily at bedtime. Indications: HYPERLIPIDEMIA 12/26/19 17 Active buPROPion XL (WELLBUTRIN XL) 300 mg 24 hr tabletIndications: major depressive disorder Take 300 mg by mouth Daily at 0700. Indications: MAJOR DEPRESSIVE DISORDER 12/26/19 17 Active busPIRone (BUSPAR) 10 mg tablet Take 10 mg by mouth 2 (two) times a day. 12/26/19 18 Active cetirizine (ZyrTEC) 10 mg tabletIndications: seasonal allergic rhinitis Take 10 mg by mouth once daily at bedtime. 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 Indications: Restless Legs Syndrome 12/26/19 Active isosorbide mononitrate (IMDUR) 60 mg 24 hr tablet Take 60 mg by mouth once daily at bedtime. 12/26/19 Active lamoTRIgine (LaMICtal) 150 mg tablet Take 400 mg by mouth daily. 12/26/19 Active lisinopril (PRINIVIL,ZESTRIL) 20 mg tablet Take 20 mg by mouth daily. 12/26/19 Active tiZANidine (ZANAFLEX) 4 mg tablet Take 4 mg by mouth as needed for muscle spasms. 12/26/19 Active traZODone (DESYREL) 100 mg tabletIndications: major depressive disorder Take 200 mg by mouth nightly. Indications: MAJOR DEPRESSIVE DISORDER 12/26/19 Active ondansetron ODT (ZOFRAN ODT) 4 mg disintegrating tabletIndications: Postoperative nausea Dissolve 1 tablet (4 mg total) on tongue every 8 (eight) hours as needed for nausea or vomiting. 90 tablet 12/28/19 Active Additional Information Patient not taking.Reported on 01/04/2017 heparin, porcine, in 0.9% NaCl (HEPARIN FLUSH) 10 unit/mL kit Infuse 5 mL into a venous catheter daily. FLUSH NON VALVED PICC CATHETER WITH NORMAL SALINE 10 ML FOLLOWED BY 5 ML HEPARIN 10 UNITS PER ML DAILY TO MAINTAIN PATENCY Active sodium chloride (NORMAL SALINE FLUSH) 0.9 % injection Infuse 10 mL into a venous catheter daily. Active vit 10-iron fum-folic 65-1 mg tabletIndications: Malnutrition,Intes tinal malabsorption, unspecified type Take 1 tablet by mouth daily. To be started 6 weeks after surgery 30 tablet 11 01/05/20 17 Active HYDROcodone-acetam inophen (NORCO) 5-325 mg per tablet Take 1 tablet by mouth every 6 (six) hours as needed for pain. Active ursodiol (ACTIGALL) 500 mg tabletIndications: Rapid weight loss Take 1 tablet (500 mg total) by mouth daily. BREAK IN 1/2 FIRST 6 WEEKS 30 tablet 5 01/05/20 17 Active Active Problems Problem Noted Date Diagnosed Date Dehydration 12/26/2016 Morbid obesity with BMI of 50.0-59.9, adult 09/0 09/2016 Seasonal allergies 12/15/2016 Diabetes mellitus 12/15/2016 Arthritis 12/15/2016 Hip pain, bilateral 12/15/2016 Back pain 12/15/2016 Overview (12/15/2016): sees pain mgmt Depression 12/15/2016 Anxiety 12/15/2016 Hyperlipidemia 12/15/2016 Heart disease 12/15/2016 Chronic diastolic heart failure 08/26/2015 Coronary arteriosclerosis in [place] artery 08/25 Essential hypertension 08/26/2015 Morbid obesity 08/26/2015 Obstructive sleep apnea syndrome 08/26/2015 Family History Medical History Relation Name Comments Heart disease Father Hypertension Father Blindness Mother after stroke Cancer Mother head/neck Diabetes Mother Heart attack Mother x 2 Hypertension Mother Stroke Mother x 2 Anesthesia problems Neg Hx Relation Name Status Comments Father Mother Social History Tobacco Use Types Packs/Day Years Used Date Smoking Tobacco: Never Smokeless Tobacco: Never Tobacco Cessation:Counseling Given: No Alcohol Use Standard Drinks/Week Comments Yes 0 (1 standard drink = 0.6 oz pur e alcohol) rarely Childcare Answer Date Recorded Childcare Unknown 09/25/2018 Employment Answer Date Recorded Employment Unknown 09/25/2018 Purpose - Life Answer Date Recorded Purpose and direction in life Unknown Comments No Sex and Gender Information Value Date Recorded Sex Assigned at Not on file Legal Sex Female 11:49 AM EDT Gender Identity Not on file Sexual Orientation Not on file Last Filed Vital Signs Vital Sign Reading Time Taken Comments Blood Pressure 136/90 01/04/2017 2:18 PM EDT Pulse 80 01/04/2017 2:18 PM EDT Temperature 36.8 C (98.2 F) 01/04/2017 2:18 PM EDT Respiratory Rate 18 12/30/2016 3:22 PM EDT Oxygen Saturation 100% 12/29/2016 11:07 AM EDT Inhaled Oxygen Concentration - - Weight 124.7 kg (275 lb) 02/05/2017 3:38 PM EDT Height 162.6 cm (5' 4 ) 02/05/2017 3:38 PM EDT Body Mass Index 47.2 02/05/2017 3:38 PM EDT Plan of Treatment Health Maintenance Due Date Last Done Comments Depression Screening 1982 Tobacco Screening 1982 Adult BMI Screening 1988 DTaP,Tdap and Td Vaccines (1 - Tdap) 1989 Zoster (Shingles) Vaccine (1 of 2) 2020 Influenza Vaccine 12/15/2024 Goals Goal Patient Goal Type Associated Problems Recent Progress Patient-Stated? Author For safe transition from hospital to home General Yes Cathy Louie, RN Note: Evaluation of progress towards goal: Plan is to return home with resumption of [facility] and TPN lose weight ~ No Galilea Iverson RN Note: Evaluation of progress towards goal: Pt will follow and tolerate gastric bypass diet to optimize weight loss. Medical Devices Implanted Type Area Personalization Specialist Device Identifier Shelf Expiration Date Model / Serial / Lot Rods,Screws Other Implant Neck Cardiac Stent Advance Directives * Full Code (Latest Code Status on File) Date Activated Date Inactivated Comments 12/20/2016 5:14 PM 12/22/2016 7:11 PM Care Teams Handle Machine Operator Relationship Specialty Start Date End Date Markel Braxton MD PCP - General 06/22/16
--- OUTSIDE RECORDS SUMMARY | 2024-10-07 11:00 | XMS_ITS | Encounter Summary ---
Author Organization [facility] Address [address] [place] [address] Care Team Providers Care Senior Embedded Software Engineer Name Role Phone Markel Braxton MD Primary Care Provider [phone] Markel Braxton MD Primary Care Provider [phone] Janene Lew TODDLER LEAD TEACHER Unavailable [phone] Encounter Details Date Type Department Care Team (Late st Contact Info) Description 05/01/2023 Abstract [facility] [address] [place] [address] Janene Lew NP [address] [place] [address] Social History Tobacco Use Types Packs/Day Years Used Date Smoking Tobacco: Never Tobacco Cessation:Counseling Given: Not Answered Alcohol Use Standard Drinks/Week Comments Not Currently [...] week 05/02/2023 How often do you attend druze or roman catholic serv ices? Never 05/02/2023 Do you belong to any clubs o r organizations such as druze groups, unions, fraternal or athletic groups, or [...] Recorded Patient Health Questionnaire-2 Score 4 05/03/2023 [facility] - Occupational Stress [...] on file documented as of this encounter Functional Status * Audit-C Score Answer Date of Assessment Author 0 05/02/2023 2:41 PM EST Mychart, Generic * Q1: How often do you have a drink containing alcohol? Answer Date of Assessment Author Never 05/02/2023 2:41 PM EST Mychart, Generic * Q2: How many drinks containing alcohol do you have on a typical day when you are drinking? Answer Date of Assessment Author Patient does not drink 05/02/2023 2:41 PM EST My chart, Generic * Q3: How often do you have six or more drinks on one occasion? Answer Date of Assessment Author Never 05/02/2023 2:41 PM EST Mychart, Generic * Over the past 2 weeks, how often have you been bothered by any of the following problems? Question Answer Date of Assessment Author Little interest or pleasure in doing things More than half the days 05/03/2023 1:18 PM EST TOSHIA ASKEW Feeling down, depressed, or hopeless More than half the days 05/03/2023 1:18 PM TOSHIA MILLER Patient Health Questionnaire-2 Score 4 05/03/2023 1:18 PM JUANITA MILLER * Question Answer Date of Assessment Author Trouble falling or staying asleep, or sleeping too much More than half the days 05/03/2023 1:18 PM TOSHIA MILLER Feeling tired or having little energy More than half the days 05/03/2023 1:18 PM TOSHIA MILLER Poor appetite or overeating More than half the days 05/03/2023 1:18 PM TOSHIA MILLER Feeling bad about yourself - or that you are a failure or have let yourself or your family down More than half the days 05/03/2023 1:18 PM TOSHIA MILLER Trouble concentrating on things, such as reading the newspaper or watching television More than half the days 05/03/2023 1:18 PM TOSHIA MILLER Moving or speaking so slowly that other people could have noticed? Or the opposite - being so fidgety or restless that you have been moving around a lot more than usual. More than half the days 05/03/2023 1:18 PM TOSHIA MILLER Thoughts that you would be better off or hurting yourself in some way Not at all 05/03/2023 1:18 PM NOHEMY MILLER Patient Health Questionnaire-9 Score 16 05/03/2023 1:18 PM JUANITA MILLER * If you checked off any problems on this questionnaire so far, Question Answer Date of Assessment Author How difficult have these problems made it for you to do your work, take care of things at home, or get along with other people? Not difficult at all 05/03/2023 1:18 PM NOHEMY MILLER documented as of this encounter Plan of Treatment Upcoming Encounters Date Type Department Care Team (Late st Contact Info) Description 11/03/2024 10:15 AM EDT Office Visit [facility] [address] [place] [address] Marya Loya, [address] [place] [address] 12/04/2024 8:40 AM EDT Office Visit [facility] [address] [place] [address] Janene Lew, ELIER [address] [place] [address] documented as of this encounter Visit Diagnoses Not on filedocumented in this encounter Care Teams Senior Embedded Software Engineer Relationship Specialty Start Date End Date Markel Braxton MD PCP - General Family Medicine 10/25/22 05/02/23 Markel Braxton MD [address] [place] [address] PCP - General Family Medicine 05/03/23 Janene Lew, ELIER [address] [place] [address] PCP - [facility] 09/15/23 documented as of this encounter
--- OUTSIDE RECORDS SUMMARY | 2024-10-07 11:00 | XMS_ITS | Encounter Summary ---
Author Organization [facility] Address [address] [place] [address] Care Team Providers Care Automatic Centrifugal Station Operator Name Role Phone Janene Lew MD Primary Care Provider [phone] Reason for Visit * Reason Comments Med Refill Encounter Details Date Type Department Care Team ([facility] st Contact Info) Description 11/22/2022 Refill [facility] [address] [place] [address] Tk Godoy MD [address] [facility] [address] [place] [phone] Hyperlipidemia, unspecified hyperlipidemia type Social History Tobacco Use Types Packs/Day Years Used Date Smoking Tobacco: Never Assessed Comments Unknown Sex and Gender Information Value Date Recorded Sex Assigned at Not on file Legal Sex Female 10:36 PM EDT Gender Identity Not on file Sexual Orientation Not on file documented as of this encounter Plan of Treatment Not on file documented as of this encounter Visit Diagnoses Diagnosis Hyperlipidemia, unspecified hyperlipidemia type documented in this encounter Care Teams Automatic Centrifugal Station Operator Relationship Specialty Start Date End Date Janene Lew MD [address] [place] [address] PCP - General 09/26/22 documented as of this encounter
--- OUTSIDE RECORDS SUMMARY | 2024-10-07 11:00 | XMS_ITS | Encounter Summary ---
Author Organization [facility] Address [address] [place] [address] Care Team Providers Care Coffee Maker Name Role Phone Janene Lew MD Primary Care Provider [phone] Reason for Visit * Reason Comments Med Refill Encounter Details Date Type Department Care Team ([facility] st Contact Info) Description 11/22/2022 Refill [facility] [address] [place] [address] Tk Godoy MD [address] [facility] [address] [facility] [place] [phone] Hyperlipidemia, unspecified hyperlipidemia type Social History Tobacco [...] type documented in this encounter Care Teams Coffee Maker Relationship Specialty Start Date End Date Janene Lew MD [address] [place] [address] PCP - General 09/26/22 documented as of this encounter
--- OUTSIDE RECORDS SUMMARY | 2024-10-07 11:00 | XMS_ITS | Encounter Summary ---
Author Organization [facility] Address [address] [place] [address] Care Team Providers Care Legal Internship Name Role Phone Markel Braxton MD Primary Care Provider [phone] Encounter Details Date Type Department Care Team (Late st Contact Info) Description 08/28/2024 Abstract [facility] [address] [place] [address] Janene Lew NP [address] [place] [phone] Social History Tobacco Use Types Packs/Day Years [...] week 05/02/2023 How often do you attend mandaeism or jain serv ices? Never 05/02/2023 Do you belong to any clubs o r organizations such as mandaeism groups, unions, fraternal or athletic groups, or [...] Recorded Patient Health Questionnaire-2 Score 0 06/16/2024 [facility] Occupat ional Health - Occupational Stress [...] place to sleep or slept in a group home (including now)? Yes 05/02/2023 Comments Unknown [...] [address] [place] [phone] Marya Loya DO [address] [place] [address] 12/04/2024 8:40 AM EDT Office Visit [facility] [address] [place] [address] Janene Lew NP [address] [place] [phone] documented as of this encounter Visit Diagnoses Not on filedocumented in this encounter Additional Health Concerns Assessment Noted Time PHQ-9 Depression Total Score: 16 024 1:18 PM EST documented as of this encounter Care Teams Legal Internship Relationship Specialty Start Date End Date Markel Braxton MD [address] [place] [address] PCP - General Family Medicine 05/03/23 documented as of this encounter
--- OUTSIDE RECORDS SUMMARY | 2024-10-07 11:00 | XMS_ITS | Encounter Summary ---
Author Organization [facility] Address [address] [place] [address] Care Team Providers Care Mirror Installer Name Role Phone Janene Lew MD Primary Care Provider [phone] Reason for Visit * Reason Comments Med Refill Encounter Details Date Type Department Care Team (Late st Contact Info) Description 10/18/2022 Refill [facility] [address] [place] [address] Tk Godoy MD [address] [facility] [address] [facility] [place] [phone] Unstable angina pectoris (CMS/HCC) Social History Tobacco Use Types Packs/Day Years Used Date Smoking Tobacco: Never Assessed Comments Unknown Sex and Gender Information Value Date Recorded Sex Assigned at Not on file Legal Sex Female 10:36 PM EDT Gender Identity Not on file Sexual Orientation Not on file COVID-19 Exposure Response Date Recorded In the last 10 days, have yo u been in contact with someone who was confirmed or suspected to have Coronavirus/COVID-19? No / Unsure 09/29/2022 1:28 PM EDT documented as of this encounter Plan of Treatment Not on file documented as of this encounter Visit Diagnoses Diagnosis Unstable angina pectoris (CMS/HCC) Intermediate coronary syndrome documented in this encounter Care Teams Mirror Installer Relationship Specialty Start Date End Date Janene Lew MD [address] [place] [address] PCP - General 09/26/22 documented as of this encounter
--- OUTSIDE RECORDS SUMMARY | 2024-10-07 11:00 | XMS_ITS | Clinical Summary ---
Author Organization [facility] Address [address] [place] [address] Care Team Providers Care Serials Librarian Name Role Phone Markel Braxton MD Primary Care Provider [phone] Allergies Active Allergy Reactions Criticality Noted Date Comments Empagliflozin 06/24/2022 Other Reaction(s): Not available, Unknown Reaction Cephalexin 04/27/2023 Esomeprazole GI intolerance 04/27/2023 Penicillins 04/27/2023 Promethazine 04/27/2023 Omeprazole GI intolerance 04/27/2023 Prochlorperazine Unknown High 06/27/2013 Other Reaction(s): Other, Seizure seizures Pantoprazole GI intolerance 04/27/2023 Sulfamethoxazole Rash High 06/27/2013 Other Reaction(s): Other Sulfamethoxazole-Trimethopri m Rash Low 04/03/2014 Other Reaction(s): other, Unknown Zolpidem Unknown 10/16/2023 Other Reaction(s): Unknown Reaction Medications cetirizine (ZyrTEC) 10 MG tablet Take 10 mg by mouth in the morning. Active aspirin (Aspirin Adult Low Dose) 81 MG EC tablet Take 81 mg by mouth in the morning. Active Cyanocobalamin (Vitamin B-12) [address] 5,000 mg under the tongue 1 (one) time each day Active busPIRone (Buspar) 30 MG tablet Take 30 mg by mouth in the morning and 30 mg before bedtime. Active cholecalciferol (Vitamin D-3) 125 MCG (5000 UT) capsule Take 5,000 Units by mouth in the morning. Active isosorbide mononitrate ER (Imdur) 30 MG 24 hr tablet Take 30 mg by mouth in the morning. Do not crush or chew.. Active metoprolol succinate XL (Toprol-XL) 12.5 mg 24 hr split tablet Take 12.5 mg by mouth Daily Pt has 25mg tabs and slitting the tab in half = taking 1/2 of 25mg Active atorvastatin (Lipitor) 80 MG tablet Take 80 mg by mouth in the morning. Active sacubitril-valsar adame (Entresto) 49-51 MG tablet Take 0.5 tablets by mouth in the morning and 0.5 tablets before bedtime. Pt is to take 1/2 tab in morning and 1/2 tab at night to equal 1 tab per day. Active oxyCODONE-acetami nophen (Percocet) 7.5-325 MG tablet Take 1 tablet by mouth in the morning and 1 tablet before bedtime. Active furosemide (Lasix) 20 MG tabletIndications :Swelling of both lower extremities Take 1 tablet (20 mg) by mouth in the morning. May increase to 2 pills IF worsening in leg swelling. 60 tablet 2 Active Additional Information Patient not taking.Reported on 09/03/2024 Blood Glucose Monitoring Suppl (True Metrix Air Glucose Meter) w/Device kitIndications:Ty pe 2 diabetes mellitus without complication, without long-term current use of insulin ([facility]) 1 each Daily 1 kit 024 Active ARIPiprazole (Abilify) 30 MG tablet Take 30 mg by mouth Daily Active fluticasone (Flonase) 50 MCG/ACT nasal sprayIndications: Seasonal allergies Administer 2 sprays into each nostril Daily 16 g 5 024 Active fenofibrate (Tricor) 145 MG tabletIndications :Mixed hyperlipidemia Take 1 tablet (145 mg) by mouth Daily 30 tablet 5 024 Active Lancets (OneTouch Delica Plus [id number]) miscIndications:T ype 2 diabetes mellitus with stage 4 chronic kidney disease, without long-term current use of insulin (HCC) Fsbs bid 200 each 3 024 Active senna-docusate sodium (Senokot-S) 8.6-50 MG tablet Take 1 tablet by mouth Daily OTC PO daily Active benztropine (Cogentin) 0.5 MG tablet 024 Active nitroglycerin (Nitrostat) 0.[address] 1 TABLET UNDER TONGUE FOR CHEST PAIN. CALL 911 IF NO IMPROVEMENT AFTER 5 MIN. REPEAT DOSE TWICE IF NEEDED 024 Active Vraylar 6 MG capsule Take 1 capsule by mouth Daily 024 Active Tirzepatide (Mounjaro) 7.5 MG/0.5ML solution auto-injectorIndi cations:Type 2 diabetes mellitus with other circulatory complications (HCC) INJECT 7.5 MG SUBCUTANEOUSLY UNDER THE SKIN 1 TIME PER WEEK 2 mL 3 025 Active gabapentin (Neurontin) 600 MG tabletIndications :Restless leg syndrome Take 1 tablet (600 mg) by mouth 2 (two) times a day as needed (RLS) 60 tablet 2 025 Active tiZANidine (Zanaflex) 4 MG tabletIndications :Muscle spasm Take 1 tablet (4 mg) by mouth every 8 (eight) hours if needed for muscle spasms 90 tablet 1 025 Active FLUoxetine (PROzac) 40 MG capsule Take 40 mg by mouth Daily 025 Active amLODIPine (Norvasc) 10 MG tabletIndications :Primary hypertension Take 1 tablet (10 mg) by mouth Daily 90 tablet 1 025 2024 Active rOPINIRole (Requip) 0.25 MG tabletIndications :Restless leg syndrome Take 1 tablet (0.25 mg) by mouth at bedtime 30 tablet 2 025 2024 Active rOPINIRole (Requip) 0.25 MG tabletIndications :Restless leg syndrome Take 1 tablet (0.25 mg) by mouth at bedtime 30 tablet 5 024 2024 Discontinued Active Problems Problem Noted Date Diagnosed Date Lumbar facet arthropathy 09/03/2024 Encounter for wellness examination in adult 08/15 Assessment & Plan (09/03/2024 6:40 AM EDT): Reviewed Ht/Wt/BMI Recommend eye exam yearly Recommend dental exams twice a year Balance work/leisure activities Exercises is recommended most days of the week (appropriate as chronic conditions allow) Follow up yearly and prn Acute foot pain, left 07/15/2024 Acute left ankle pain 07/15/2024 Type 2 diabetes mellitus wit h other circulatory complications 02/19/2024 Assessment & Plan (06/16/2024 9:36 AM EST): During the appointment today all pertinent labs, [...] if they have any problems or questions. Sharlene Humphreys is doing very well and encouraged [...] 2 days a week of resistance training. Assessment & Plan (02/19/2024 9:49 AM EST): During the appointment today all pertinent labs, [...] if they have any problems or questions. Sharlene Humphreys is doing very well and encouraged on this. She is to work on adding exercise into her regimen with the goal of getting up to 150 min of moderate exercise weekly. Will increase her mounjaro. Class 2 severe obesity due t o excess calories with serious comorbidity and body mass index (BMI) of 38.0 to 38.9 in adult 12/05/2023 Assessment & Plan (09/03/2024 10:04 AM EDT): Discussed with patient their BMI (actual, verses recommended). We have also discussed lifestyle modifications: attempts to perform physical activity as chronic conditions allow, also to monitor dietary intake: increasing protein/fruits/veggies and lowering carb intake (unless contraindicated). Limit sodas, juices, and sugary drinks. Has been demonstrating weight loss Approx 80 pounds in the last year, and is on mounjaro Assessment & Plan (03/06/2024 9:39 AM EST): Has lost approx 64 pounds since 07/07 Discussed with patient their BMI (actual, verses recommended). We have also discussed lifestyle modifications: attempts to perform physical activity as chronic conditions allow, also to monitor dietary intake: increasing protein/fruits/veggies and lowering carb intake (unless contraindicated). Limit sodas, juices, and sugary drinks. Keep up the good work Adenomatous polyp of cecum 11/12/2023 Diverticulosis large intesti ne w/o perforation or abscess w/o bleeding 11/12/2023 Acute kidney injury superimposed on CKD 10/24/19 Assessment & Plan (10/24/2023 11:01 AM EDT): Continue with Nephrology Hyperkalemia 10/24/2023 Hyperuricemia 10/24/2023 Iron deficiency 10/24/2023 Vitamin B12 deficiency 10/24/2023 Vitamin D deficiency 10/24/2023 Anemia of renal disease 10/24/2023 Restless leg syndrome 10/23/2023 Assessment & Plan (03/06/2024 6:41 AM EST): Continue mirapex Assessment & Plan (12/05/2023 9:11 AM EDT): Continue mirapex Assessment & Plan (10/24/2023 11:00 AM EDT): Will trial mirapex, 0.25mg Fu in 6 weeks She may want to reach out to her psych provider too to see if this is related to other meds History of colon polyps 09/14/2023 Stage 3b chronic kidney disease 09/13/2023 Assessment & Plan (09/03/2024 6:37 AM EDT): Is established with nephrology for mgmt/monitoring Continue to keep blood pressure and DM at goal Assessment & Plan (03/06/2024 6:44 AM EST): Is established with nephrology for mgmt/monitoring Continue to keep blood pressure and DM at goal Assessment & Plan (09/13/2023 11:10 AM EDT): Continue with nephrology Displacement of lumbar inter vertebral disc with radiculopathy 09/11/2023 Hypertensive nephropathy 09/11/2023 History of PTCA 09/11/2023 Headache, tension-type 09/11/2023 Muscle spasm 07/24/2023 Insomnia 07/02/2023 Dyspnea 07/02/2023 Irritable bowel syndrome with diarrhea H/O bariatric surgery 07/02/2023 Abdominal wall hernia 07/02/2023 Nephrolithiasis 07/02/2023 Lumbar disc herniation 07/02/2023 Degenerative disc disease, lumbar 07/02/2023 Elevated liver enzymes 07/02/2023 Encounter for screening mamm ogram for malignant neoplasm of breast 05/03/2023 Colon cancer screening 05/03/2023 Heel pain, bilateral 05/03/2023 Assessment & Plan (05/03/2023 1:46 PM EST): Would [facility] a [facility] Spinal stenosis of thoracolumbar region 04/30/19 Spinal stenosis of lumbar region at [facility] 04/30/2023 Assessment & Plan (03/06/2024 9:57 AM EST): Continues with pain mgmt for oral medications and treatment plan [facility] pain mgmt, ?? Possible spinal cord stimulator Will complete her FMLA URIEL (obstructive sleep apnea) 04/30/2023 Assessment & Plan (03/06/2024 9:58 AM EST): Not using this, mask broke and they will give new mask Assessment & Plan (10/24/2023 11:00 AM EDT): Continue with PAP Assessment & Plan (07/02/2023 9:59 AM EDT): Is now wearing her PAP approx 6 hours per night Does have trouble longer d/t nocturia Hypertension 04/30/2023 Assessment & Plan (09/03/2024 6:34 AM EDT): Please check blood pressure daily and record DASH diet Limit caffeine Take medication as directed Contact office if chest pain, pressure, dizziness, shortness of breath, swelling legs Recommend slow position changes Continue current meds Cont ASA, statin, b seema Assessment & Plan (03/06/2024 6:43 AM EST): Please check blood pressure daily and record DASH diet Limit caffeine Take medication as directed Contact office if chest pain, pressure, dizziness, shortness of breath, swelling legs Recommend slow position changes Continue current meds Cont ASA, statin, b seema Assessment & Plan (10/24/2023 11:01 AM EDT): Stable at current Will allow mgmt of this between cardiology and nephrology Assessment & Plan (07/02/2023 10:00 AM EDT): Stable at this time, no changes in dose of meds Fu in 3 months for this Assessment & Plan (05/03/2023 1:44 PM EST): Check labs, at goal, no changes in meds Coronary arteriosclerosis 04/30/2023 Bradycardia 04/30/2023 GERD (gastroesophageal reflux disease) Assessment & Plan (09/03/2024 6:35 AM EDT): stable Assessment & Plan (05/03/2023 1:44 PM EST): stable Microscopic hematuria 04/30/2023 Lower extremity edema 04/30/2023 Assessment & Plan (03/06/2024 6:44 AM EST): Continues to take lasix as directed Compression stockings Limiting sodium intake Elevated legs above level of heart as much as possible Assessment & Plan (09/13/2023 11:13 AM EDT): Cont lasix at 40mg Also side effect of norvasc as well as actos Assessment & Plan (05/03/2023 1:44 PM EST): Minimal today, cont diuretics Check labs Type 2 diabetes mellitus wit h stage 3a chronic kidney disease, without long-term current use of insulin 04/30/2023 Assessment & Plan (09/03/2024 6:39 AM EDT): Check blood sugars daily, notify if <70 [...] simple sugars. Continue on mounjaro as well A1c: 5.5% on 06/16/24 Pt is managed by dr madrid Assessment & Plan (03/06/2024 6:45 AM EST): Check blood sugars daily, notify if <70 [...] mounjaro as well 03/09 A1c is 5.1% Assessment & Plan (11/19/2023 11:04 AM EDT): During the appointment today all pertinent labs, [...] if they have any problems or questions. Sharlene Humphreys control is stable overall. , Discussed dietary changes at length. Encouraged to limit simple carbs and focus more on healthy protein/fat with all meals and snacks. They should also avoid any sugary drinks. , Discussed importance of checking blood glucose regularly and bringing them in to their appointment in order for me to better adjust their medications. , Instructions given today include: Dietary education. Will stop actos due to swelling and doubt it was doing much anyway. Will stay on mounjaro. She really needs to improve her diet as it is all carbs and sodium. She needs to limit sodium in her diet and focus more on healthy protein/fat. A1c is falsely low due to anemia. Assessment & Plan (10/24/2023 11:02 AM EDT): Continue with nephrology Assessment & Plan (09/13/2023 11:11 AM EDT): Continue with nephrology Assessment & Plan (07/02/2023 10:01 AM EDT): Follows with Nephrology, reports she has an upcoming appt with them in the next few weeks Assessment & Plan (05/03/2023 1:45 PM EST): Check labs Seasonal allergies 04/30/2023 Migraine headache 04/30/2023 Hypomagnesemia 04/30/2023 Hyperlipidemia 04/30/2023 Assessment & Plan (09/03/2024 6:39 AM EDT): On statin therapy as well as fenofibrate Check labs yearly and prn dose changes Depression 04/30/2023 Assessment & Plan (07/02/2023 10:04 AM EDT): Continue with psych provider, discussed possibility of pt talking about [place]rav[place] to the provider as a possible consideration Chronic diastolic heart failure 08/26/2015 Assessment & Plan (09/03/2024 6:37 AM EDT): Follows with cardiology Current meds: statin, lasix, entresto, b seema, and amlodipine Recommend daily weight, limit sodium, if weight increases by more than 3 pounds in 24 hours notify cardiology Assessment & Plan (10/24/2023 11:01 AM EDT): Stable at this time, continue with cardiology Assessment & Plan (07/02/2023 10:00 AM EDT): Is on entresto per cardiology Will check chem 8 d/t recent episode of anuria Bipolar disorder 03/22/2012 Assessment & Plan (03/06/2024 6:47 AM EST): Continue with psych for management of her mental health Assessment & Plan (10/24/2023 7:05 AM EDT): Continue with psych for management of her mental health Generalized anxiety disorder 03/22/2012 Assessment & Plan (03/06/2024 6:47 AM EST): Continue with psych for management of symptoms and meds Resolved Problems Problem Noted Date Diagnosed Date Resolved Date Other intervertebral disc di splacement, thoracolumbar region 09/03/2024 09/03/2024 Acute non-recurrent pansinusitis 03/06/2024 09/03/2024 Assessment & Plan (03/06/2024 9:59 AM EST): Finish atb, fluids, fu if not better Left lower quadrant abdominal pain 12/05/2023 09/03/2024 Assessment & Plan (12/05/2023 9:10 AM EDT): Will check xray to r/o perforation Will treat for diverticulitis: cipro and flagyl Fu if not better Advised no ETOH, as well as NO tizanidine while taking cipro Increase fiber Denies any fever, chills, NV Will call office if not better after atb If conditions worsens go to the ER LLQ pain 12/05/2023 12/05/2023 Antibiotic-induced yeast infection 10/03/2023 09/03/2024 Dental infection 09/20/2023 09/03/2024 Assessment & Plan (09/20/2023 2:42 PM EDT): Presents with fever/chills, malaise, fatigue. Symptoms on [...] has persistent fever/no improvement in her symptoms 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 09/11/2023 02/19/2024 Declining functional status 09/11/2023 03/06/2024 E-coli UTI 07/05/2023 09/03/2024 Clostridioides difficile diarrhea 07/02/2023 07/02/2023 History of anuria 07/02/2023 09/03/2024 Assessment & Plan (07/02/2023 10:01 AM EDT): Check urine, check labs Body mass index (BMI) 45.0-49.9, adult 05/03/2023 02/19/2024 Swelling of both lower extremities 04/30/2023 03/06/2024 Assessment & Plan (09/13/2023 11:11 AM EDT): Is taking total of 40mg lasix daily as per cardiology Diabetes mellitus, type 2 04/30/2023 Assessment & Plan (10/24/2023 11:03 AM EDT): Continue with mounjaro at 5mg , has lost 20 pounds A1c is in goal range Fu in 3 months for this Assessment & Plan (09/13/2023 11:13 AM EDT): Check blood sugars daily, notify if <70 [...] diet low in carbohydrates, and simple sugars. Nephrology feels that mounjaro would be a good choice to trial We will order this, advised of side effects, denies any hx of pancreatitis, or family hx medullary thyroid cancer Fu in 6 weeks Assessment & Plan (07/02/2023 10:03 AM EDT): Check blood sugars daily, notify if <70 [...] diet low in carbohydrates, and simple sugars. Is not checking sugars as she has lost her meter We will re order meter Pending chem 8 we will consider GLP-1 to also help with weight loss Assessment & Plan (05/03/2023 1:44 PM EST): Check blood sugars daily, notify if <70 [...] diet low in carbohydrates, and simple sugars. Check labs Anemia 04/30/2023 10/24/2023 Depressive disorder 03/22/2012 03/06/20 24 Encounters Date Type Department Care Team Description 09/09/2024 Refill [facility] [address] [place] [address] Janene Lew NP Restless leg syndrome 09/03/2024 9:40 AM EDT Office Visit [facility] [address] [place] [address] Janene Lew NP Encounter for wellness examination in adult (Primary Dx); Encounter for screening mammogram for malignant neoplasm of breast; Primary hypertension ; Chronic diastolic heart failure (HCC); Stage 3b chronic kidney disease ([facility]-HCC); Class 2 severe obesity due to excess calories with serious comorbidity and body mass index (BMI) of 38.0 to 38.9 in adult ([facility]-HCC); Type 2 diabetes mellitus with stage 3a chronic kidney disease, without long-term current use of insulin (HCC); Mixed hyperlipidemia 09/01/2024 Refill [facility] [address] [place] [address] Janene Lew NP Muscle spasm 09/01/2024 Refill [facility] [address] [place] [address] Janene Lew NP Primary hypertension 08/28/2024 Clinisync Result Encounter [facility] External Department Unsolicited Provider, Generic External Data 08/28/2024 Orders Only [facility] [address] [place] [address] Becca Meneses NP 08/28/2024 Clinisync Result Encounter [facility] External Department Unsolicited Janene Lew NP 08/28/2024 Abstract [facility] [address] [place] [address] Janene Lew NP 08/12/2024 Refill [facility] [address] [place] [address] Janene Lew NP 08/12/2024 Telephone [facility] [address] [place] [address] Janene Lew, ELIER 07/25/2024 Refill [facility] [address] [place] [phone] Janene Lew, COMPUTER ANALYST Restless leg syndrome 07/24/2024 Telephone [facility] [address] [place] [address] Janene Lew, COMPUTER ANALYST 07/15/2024 Orders Only [facility] [address] [place] [address] Janene Lew, COMPUTER ANALYST Acute foot pain, left (Primary Dx); Acute left ankle pain 07/10/2024 Patient Outreach [facility] [address] [address] Diana Sandoval RN from Last 3 Months Immunizations Immunization Administration Dates Next Due Hep A / Hep B 07/03/2022,01/20/2022,12/19/2021 Influenza, Recombinant, inje ctable, preservative free 01/24/2024 Influenza, injectable, quadrivalent 01/31/2019,1 05/15/2017 Influenza, injectable, quadr ivalent, preservative free 02/09/2023,12/19/2021,03/10/2020,01/31,03/15/2018,02/03/2017 Influenza, seasonal, injectable 02/16/2020 Pfizer Purple Cap SARS-CoV-2 Vaccination 05/17/2021,05/16/2021,09/06/2020,08/17,08/16/2020 Pneumococcal Conjugate PCV 13 04/16/2011 Pneumococcal Polysaccharide PPSV23 03/10/2020,,01/14/1997 SARS-COV-2 (COVID-19) vaccin e, mRNA, spike protein, LNP, PF, saravanan-sucrose, 30 mcg/0.3 mL 01/24/2024 Tdap 12/19/2021 Zoster, Recombinant 07/03/2022,12/19/2021 Family History Medical History Relation Name Comments Heart disease Brother Mom Heart attack Father Dad Heart disease Father Dad Cancer Mother Mom Depression Mother Mom Stroke Mother Mom Vision loss Mother Mom Diabetes Sister Bren Hypertension Sister Bren Kidney disease Sister Bremariana Relation Name Status Comments Brother Mom Alive Father Dad (Age 55) Mother Mom (Age 73) Other Siblings Alive Sister Bren Alive Social History Tobacco Use Types Packs/Day Years Used Date Smoking Tobacco: Never Passive Smoke Exposure: Never Smokeless Tobacco: Never Tobacco Cessation:Counseling Given: Not Answered Alcohol Use Standard Drinks/Week Comments Never 0 [...] week 05/02/2023 How often do you attend rastafarian or gnosticist serv ices? Never 05/02/2023 Do you belong to any clubs o r organizations such as rastafarian groups, unions, fraternal or athletic groups, or [...] Recorded Patient Health Questionnaire-2 Score 0 06/16/2024 [facility] of Occupat ional Health - Occupational Stress [...] place to sleep or slept in a intermediate (including now)? Yes 05/02/2023 Comments Unknown Sex and Gender Information Value Date Recorded Sex Assigned at Not on file Legal Sex Female 7:05 PM EDT Gender Identity Not on file Sexual Orientation Not on file Last Filed Vital Signs Vital Sign Reading Time Taken Comments Blood Pressure 102/72 09/03/2024 9:40 AM EDT Pulse 67 09/03/2024 9:40 AM EDT Temperature 36.9 C (98.5 F) 09/03/2024 9:40 AM EDT Respiratory Rate 22 09/03/2024 9:40 AM EDT Oxygen Saturation 97% 09/03/2024 9:40 AM EDT Inhaled Oxygen Concentration - - Weight 109 kg (240 lb) 09/03/2024 9:40 AM EDT Height 170.2 cm (5' 7 ) 06/16/2024 9:07 AM EST Body Mass Index 37.59 06/16/2024 9:07 AM EST Plan of Treatment Upcoming Encounters Date Type Department Care Team (Late st Contact Info) Description 11/03/2024 10:15 AM EDT Office Visit [facility] [address] [place] [phone] Marya Madrid DO [address] [place] [address] 12/04/2024 8:40 AM EDT Office Visit [facility] [address] [place] [address] Janene Lew NP [address] [place] [address] Health Maintenance Due Date Last Done Comments CT Colonography 1970 FIT-DNA 1970 FIT 1970 FOBT 1970 Sigmoidoscopy 1970 HPV/Cotest 2000 Pap Smear 05/18/2019 05/18/2016 Diabetes: Hemoglobin A1C 09/16/2024 03 025, 02/19/2024, 09/24/2023, Additional history exists Mammogram 09/27/2024 09/28/2023, 03/29/2022 Diabetes: Urine Protein Screening 08/28/2025 025, 05/10/2023 Diabetes: Retinopathy Screening 09/05/2025 4, 11/13/2022 Colonoscopy 10/31/2033 11/01/2023, 10/14, 07/29/2013 Colorectal Cancer Screening 10/31/2033 Influenza Vaccine Completed 01/24/2024, , 12/19/2021, Additional history exists Cervical Cancer Screening Discontinued Procedures Procedure Name Priority Date/Time Associated Diagnosis Comments XR HIP 2 OR 3 VW RIGHT Routine 10:40 AM EDT XR HIP 2 OR 3 VW RIGHT 10:30 AM EDT VITAMIN B12 Routine 08/28/2024 8:33 AM EDT [facility] VITAMIN D 25 [place] Routine 08/28/2024 8 :33 AM EDT [facility] FERRITIN Routine 08/28/2024 8:33 AM EDT [facility] IRON Routine 08/28/2024 8:33 AM EDT ALL LIPID PROFILE (FASTING) Routine 08/28/2024 8:33 AM EDT [facility] CMP (CMP) (FOR REMOTE [facility] USE) Routine 08/28/2024 8:33 AM EDT ALL CBC WITH AUTO DIFF Routine 8:33 AM EDT [facility] MICROALB CREAT RATIO RANDOM Routine 08/28/2024 8:22 AM EDT [facility] URINE MICROSCOPIC ONLY Routine 08/28/2024 8:22 AM EDT [facility] UA (CLEAN/CATCH) MICROSCOPIC IF INDICATE Routine 08/28/2024 8:22 AM EDT POCT GLYCOSYLATED HEMOGLOBIN (HGB A1C) Routine 06/16/2024 9:22 AM EST Type 2 diabetes mellitus with stage 3a chronic kidney disease, without long-term current use of insulin (HCC) COLONOSCOPY Routine 11/01/2023 11:19 AM EDT MM TOMOSYNTHESIS SCREENING BI 09/28/2023 10:49 AM EDT from Last 3 Months or Most Recently Relevant to Health Maintenance Results * XR hip right 2 or 3 views (08/28/2024 10:40 AM EDT) Only the most recent of2 resultswithin the time period is included. Anatomical Region Laterality Modality Lower Extremities, Hip Right Radiograp hic Imaging Becca Meneses NP IMG XR PROCEDURES Final Result * VITAMIN B12 (08/28/2024 8:33 AM EDT) VITAMIN B12 840 232 - 1245 pg/mL TB Comment: Performed at: - [address] [id number] Manager Media Relations: Nilton Guallpa PhD, Phone: [phone] 08/28/2024 8:33 AM EDT 08/28/2024 8:38 AM EDT Narrative [facility] - 08/29/2024 6:07 AM EDT Janene Lew NP LAB BLOOD ORDERABLES Final Resu lt [facility] * TB VITAMIN D 25 [place] (08/28/2024 8:33 AM EDT) VITAMIN D 25.7 ng/mL [facility] Comment: <20 ng/mL Vit D deficient 20-<30 ng/mL Vit D insufficient 30-100 ng/mL Vit D sufficient >100 ng/mL Potential Toxicity 08/28/2024 8:33 AM EDT 08/28/2024 8:38 AM EDT Narrative CLINISYNC - 08/28/2024 11:18 AM EDT us Janene Lew COMPUTER ANALYST CLINISYNC Final Result CLINISYNC TB * [facility] IRON (08/28/2024 8:33 AM EDT) TB IRON 67.0 50.0 - 170.0 ug/dL TBH 08/28/2024 8:33 AM EDT 08/28/2024 8:38 AM EDT Narrative CLINISYNC - 08/28/2024 10:52 AM EDT Janene Lew NP CLINISYNC Final Result CLINISYNC TBH * [facility] FERRITIN (08/28/2024 8:33 AM EDT) FERRITIN 170.0 8.0 - 252.0 ng/mL TBH 08/28/2024 8:33 AM EDT 08/28/2024 8:38 AM EDT Narrative CLINISYNC - 08/28/2024 11:18 AM EDT Janene Lew COMPUTER ANALYST CLINISYNC Final Result CLINISYNC TBH * (ABNORMAL) [facility] CMP (CMP) (FOR REMOTE [facility] USE) (08/28/2024 8:33 AM EDT) SODIUM 145 136 - 145 mmol/L TBH POTASSIUM 3.9 3.5 - 5.1 mmol/L TBH CHLORIDE 110(H) 98 - 107 mmol/L TBH CARBON DIOXIDE 28.6 21.0 - 32.0 mmol/L TBH ANION GAP 10.3 TBH GLUCOSE 89 74 - 106 mg/dL TBH BLOOD UREA NITROGEN 33.0(H) 7.0 - 18.0 mg/dL TBH CREATININE 1.34(H) 0.55 - 1.02 mg/dL TBH TBH EGFR-AF [place] 50(L) >=60 mL/min/1. 73m 2 TBH TBH EGFR-NON AF [place] 41(L) >=60 mL/min/1. 73m 2 TBH BUN CREATININE RATIO 24.6 TBH CALCIUM 9.4 8.5 - 10.1 mg/dL TBH BILIRUBIN TOTAL 0.3 0.2 - 1.0 mg/dL TBH ASPARTATE AMINO TRANSFERASE 26 15 - 37 U/L TBH ALANINE AMINOTRANSFERASE 26 14 - 59 U/L TBH ALKALINE PHOSPHATASE 80 46 - 116 U/L TBH TOTAL PROTEIN 6.4 6.4 - 8.2 g/dL TBH ALBUMIN LEVEL 3.7 3.4 - 5.0 g/dL TBH GLOBULIN 2.7 g/dL TBH ALBUMIN GLOBULIN RATIO 1.4 TB 08/28/2024 8:33 AM EDT 08/28/2024 8:38 AM EDT Narrative CLINISYNC - 08/28/2024 10:50 AM EDT Janene Lew NP CLINISYNC Final Result [facility] * ALL LIPID PROFILE (FASTING) (08/28/2024 8:33 AM EDT) TRIGLYCERIDES 72 <=150 mg/dL TBH CHOLESTEROL 114 <=200 mg/dL TB HDL CHOLESTEROL 47 40 - 60 mg/dL TB Comment: > or =60 mg/dl - LOW CARDIOVASCULAR RISK <40 mg/dl - HIGH CARDIOVASCULAR RISK LDL CHOLESTEROL CALCULATED 52.6 mg/dL TB Comment: <100 mg/dl OPTIMAL 100-129 mg/dl NEAR OR ABOVE OPTIMAL 130-159 mg/dl BORDERLINE HIGH 160-189 mg/dl HIGH >190 mg/dl VERY HIGH VLDL CHOLESTEROL 14.4 mg/dL TB CHOL HDL RATIO 2.4 TB Comment: 3.3 - 4.4 LOW RISK 4.4 - 7.1 AVERAGE RISK 7.1 - 11.0 MODERATE RISK >11.0 HIGH RISK 08/28/2024 8:33 AM EDT 08/28/2024 8:38 AM EDT Narrative CLINISYNC - 08/28/2024 10:50 AM EDT Janene Lew NP CLINISYNC Final Result [facility] * ([facility]) ALL CBC WITH AUTO DIFF (08/28/2024 8:33 AM EDT) [facility] TBH WBC 5.9 4.0 - 11.0 10 3/uL TBH TBH RBC 3.61(L) 4.20 - 5.40 10 6/uL TBH TBH HGB 10.9(L) 12.0 - 16.0 g/dL TBH TBH HCT 33.6(L) 36.0 - 48.0 % TBH TBH MCV 93.1 81.0 - 99.0 fL TBH TBH MCH 30.2 26.7 - 34.0 pg TBH TBH MCHC 32.4 29.9 - 35.2 g/dL TBH TBH RDW 13.0 11.0 - 15.0 % TBH TBH PLT 256 150 - 450 10 3/uL TBH TBH MPV 10.8 9.5 - 13.5 fL TBH NEUTROPHILS PERCENT AUTO 42.8(L) 43.0 - 75.0 % TBH LYMPHOCYTES PERCENT AUTO 46.4 20.5 - 60.0 % TBH MONOCYTES PERCENT AUTO 6.6 1.7 - 12.0 % TBH TBH EO % 3.2 0.9 - 7.0 % TBH BASOPHILS PERCENT AUTO 0.8 0.2 - 2.0 % TBH IMMATURE GRANULOCYTES PCT AUTO 0.2 0.0 - 0.5 % TBH NEUTROPHILS ABSOLUTE AUTO 2.5 1.4 - 6.5 10 3/uL TBH LYMPHOCYTES ABSOLUTE AUTO 2.8 1.2 - 3.8 10 3/uL TBH MONOCYTES ABSOLUTE AUTO 0.4 0.3 - 0.8 10 3/uL TBH TBH EO # 0.2 0.0 - 0.7 10 3/uL TBH BASOPHILS ABSOLUTE AUTO 0.1 0.0 - 0.1 10 3/uL TBH IMMATURE GRANULOCYTES ABS AUTO 0.01 0.00 - 0.03 10 3/uL TBH 08/28/2024 8:33 AM EDT 08/28/2024 8:38 AM EDT Narrative CLINISYNC - 08/28/2024 8:48 AM EDT Janene Lew COMPUTER ANALYST CLINISYNC Final Result Performing Organization Address [facility] [[email or web address]] Co de Phone Number CLINISYNC TBH * (ABNORMAL) TBH URINE MICROSCOPIC ONLY (08/28/2024 8:22 AM EDT) TBH WBC 2-5(A) NONE SEEN #/HPF TBH TBH RBC 0-2 0 - 2 #/HPF TBH BACTERIA URINE NONE SEEN NONE SEEN #/HPF TBH MUCUS URINE NONE SEEN NONE SEEN TBH SQUAMOUS EPITHELIAL CELL URINE RARE NONE/RARE #/LPF TBH CRYSTALS SEEN? None Seen None Seen #/HPF TBH CAST SEEN? NONE SEEN NONE SEEN #/LPF TBH 08/28/2024 8:22 AM EDT 08/28/2024 8:38 AM EDT Narrative CLINISYNC - 08/28/2024 8:53 AM EDT Janene Lew COMPUTER ANALYST CLINISYNC Final Result Performing Organization Address [facility] de Phone Number CLINISYNC TB * (ABNORMAL) TBH UA (CLEAN/CATCH) MICROSCOPIC IF INDICATE (08/28/2024 8:22 AM EDT) COLOR URINE LT. YELLOW YELLOW TBH CLARITY URINE CLEAR CLEAR TBH SPECIFIC GRAVITY URINE 1.020 1.005 - 1.025 TBH PH URINE 6.0 5.0 - 9.0 TBH PROTEIN URINE NEGATIVE NEG/TRACE mg/dL TBH GLUCOSE URINE UA NEGATIVE NEGATIVE mg/dL TBH BILIRUBIN URINE NEGATIVE NEGATIVE TBH KETONES URINE NEGATIVE NEGATIVE mg/dL TBH BLOOD URINE NEGATIVE NEGATIVE TBH NITRITE URINE NEGATIVE NEGATIVE TBH UROBILINOGEN URINE 0.2 0.2 - 1.0 EU/dL TBH LEUKOCYTE ESTERASE URINE TRACE(A) NEGATIVE TBH URINE MICROSCOPIC INDICATED YES TBH 08/28/2024 8:22 AM EDT 08/28/2024 8:38 AM EDT Narrative CLINISYNC - 08/28/2024 8:53 AM EDT Janene Lew NP CLINISYNC Final Result [facility] * TBH MICROALB CREAT RATIO RANDOM (08/28/2024 8:22 AM EDT) MICROALBUMIN URINE RANDOM <1.3 <=30.0 mg/dL TBH CREATININE URINE RANDOM 105.85 20.00 - 300.00 mg/dL TB MICROALBUM CREATININE RATIO UR 12.2 0.0 - 29.9 mg/g TBH Comment: NO MICROALBUMINURIA 0-29 MG/G CLINICAL MICROALBUMINURIA 30-300 MG/G MACROALBUMINURIA >300 MG/G 08/28/2024 8:22 AM EDT 08/28/2024 8:38 AM EDT Narrative CLINISYNC - 08/28/2024 10:49 AM EDT Janene Jonesomkar THAPA CLINISYNC Final Result Performing Organization Address [facility] [[email or web address]] Co de Phone Number [facility] * POCT glycosylated hemoglobin (Hb A1C) docked device (06/16/2024 9:22 AM EST) Hemoglobin A1C 5.5 Blood Venous blood specimen / Unknown 06/16/2024 9:22 AM EST Marya Madrid DO POINT OF CARE TEST ENTER/E DIT ORDERABLES Final Result * Colonoscopy (11/01/2023 11:19 AM EDT) Anatomical Region Laterality Modality Endoscopy Jhonathan Ashley MD ENDOSCOPY PROCEDURE ORDERABL ES Final Result * MM TOMOSYNTHESIS SCREENING BI (09/28/2023 10:49 AM EDT) Anatomical Region Laterality Modality Other 09/28/2023 10:4 9 AM EDT Narrative 09/28/2023 10:50 [place] [address] Mammography Report Signed Patient: SHARLENE HUMPHREYS MR#: [id number] : 1970 Acct:[id number] Age/Sex: 52 / F ADM Date: 09/28/23 Loc: MAMMO Attending Dr: Janene Lew NP Ordering Physician: Janene Lew NP Results: Date of Service: 09/28/23 Follow Up: Procedure(s): MM tomosynthesis screening BI Accession Number(s): [id number] cc: Janene Lew NP Patient Name: SHARLENE HUMPHREYS MR#: [id number] : 1970 Exam Date: 09/28/2023 Ordering Doctor: [...] at age 73. LOCATION: [facility] BREAST COMPOSITION: There are scattered areas of [...] Signed By: 09/28/23 1050 DD/ 1049 TD/TT: Tenter Feeder: Procedure Note Radiology, RadiologistMD - 09/28/2023 [place] [address] Mammography Report Signed Patient: SHARLENE HUMPHREYS AMR#: [id number] : 1970Acct:[id number] Age/Sex: 52 / FADM Date: 09/28/23 Loc: MAMMO Attending Dr: Janene Lew NP Ordering Physician: Janene Lew NPResults: Date of Service: 09/28/23Follow Up: Procedure(s): MM tomosynthesis screening BI Accession Number(s): [id number] cc: Janene Lew NP Patient Name: SHARLENE HUMPHREYS MR#: [id number] : 1970 Exam Date: 09/28/2023 Ordering Doctor: [...] at age 73. LOCATION: [facility] BREAST COMPOSITION: There are scattered areas of [...] PALPABLE LUMP SHOULD BE BIOPSIED. Dictated by: Jarrtet Weiss MD on 09/28/2023 at 09:56 Approved by: Jarrett Weiss MD on 09/28/2023 at 10:49 Dictated By: Jarrett Weiss M.D. Signed By:09/28/23 1050 DD/ 1049 TD/TT: Tenter Feeder: Janene Lew NP CLINISYNC IMAGING Final Result from Last 3 Months or Most Recently Relevant to Health Maintenance Insurance [facility] Care Teams Serials Librarian Relationship Specialty Start Date End Date Markel Braxton MD [address] [place] [address] PCP - General Family Medicine 05/03/23
--- OUTSIDE RECORDS SUMMARY | 2024-10-07 11:00 | XMS_ITS | Encounter Summary ---
Author Organization [facility] Address [address] [place] [address] Care Team Providers Care Associate Embalmer/Funeral Director Name Role Phone Markel Braxton MD Primary Care Provider [phone] Janene Lew NP Unavailable [phone] Encounter Details Date Type Department Care Team (Late st Contact Info) Description 11/01/[address] [facility] [address] [address] Jhonathan Clemente MD [address] [facility] [address] [place] [address] Social History Tobacco Use Types Packs/Day Years [...] week 05/02/2023 How often do you attend holiness or scientology serv ices? Never 05/02/2023 Do you belong to any clubs o r organizations such as holiness groups, unions, fraternal or athletic groups, or [...] Recorded Patient Health Questionnaire-2 Score 0 09/20/2023 [facility] - Occupational [...] place to sleep or slept in a fdc (including now)? Yes 05/02/2023 Comments Unknown Sex [...] [address] [place] [phone] Marya Loya DO [address] [place] [address] 12/04/2024 8:40 AM EDT Office Visit [facility] [address] [place] [phone] Janene Lew NP [address] [place] [phone] documented as of this encounter Procedures Procedure Name Priority Date/Time Associated Diagnosis Comments COLONOSCOPY Routine 11/01/2023 11:19 AM EDT documented in this encounter Results * Colonoscopy (11/01/2023 11:19 AM EDT) Anatomical Region Laterality Modality Endoscopy us Jhonathan Ashley MD ENDOSCOPY PROCEDURE ORDERABL ES Final Result documented in this encounter Visit Diagnoses Not on filedocumented in this encounter Additional Health Concerns Assessment Noted Time PHQ-9 Depression Total Score: 16 024 1:18 PM EST documented as of this encounter Care Teams Associate Embalmer/Funeral Director Relationship Specialty Start Date End Date Markel Braxton MD [address] [place] [address] PCP - General Family Medicine 05/03/23 Janene Lew NP [address] [place] [phone] PCP - [employer] 09/15/23 documented as of this encounter
--- OUTSIDE RECORDS SUMMARY | 2024-10-07 11:00 | XMS_ITS | Encounter Summary ---
Author Organization [facility] Address [address] [place] [address] Care Team Providers Care Child Care Center Assistant Director Name Role Phone Janene Lew MD Primary Care Provider [phone] Reason for Visit * Reason Comments Med Refill Encounter Details Date Type Department Care Team ([facility] st Contact Info) Description 09/24/2022 Refill [facility] [address] [place] [address] Tk Godoy MD [address] [facility] [address] [facility] [place] [phone] Unstable angina pectoris (CMS/HCC) Social History Tobacco [...] syndrome documented in this encounter Care Teams Child Care Center Assistant Director Relationship Specialty Start Date End Date Janene Lew MD [address] [place] [address] PCP - General 09/26/22 documented as of this encounter
--- OUTSIDE RECORDS SUMMARY | 2024-10-07 11:00 | XMS_ITS | Encounter Summary ---
Author Organization [facility] Address [address] [place] [address] Care Team Providers Care Call Center Director Name Role Phone Janene Lew MD Primary Care Provider [phone] Reason for Visit * Reason Comments Med Refill Encounter Details Date Type Department Care Team (Late st Contact Info) Description 08/24/2022 Refill [facility] [address] [place] [phone] Tk Godoy MD [address] [facility] [address] [place] [phone] Palpitations; Hyperlipidemia, unspecified hyperlipidemia type Social History Tobacco [...] as of this encounter Visit Diagnoses Diagnosis Palpitations Hyperlipidemia, unspecified hyperlipidemia type documented in this encounter Care Teams Call Center Director Relationship Specialty Start Date End Date Janene Lew MD [address] [place] [address] PCP - General 09/26/22 documented as of this encounter
--- NOTE | 2024-10-07 11:03 | ECG_ITS ---
The [facility] Test Date: 2024-10-07 Pat Name: SHARLENE HUMPHREYS Department: Room: - Gender: Female Head Setter: : 1970 Requested By: [id number] Order Number: [id number] Reading MD: LITO EDEN M.D. Measurements Intervals [place] Rate: 51 P: 30 NE: 182 QRS: -16 QRSD: 105 T: 0 QT: 407 QTc: 378 Interpretive Statements SINUS BRADYCARDIA LOW QRS VOLTAGE IN PRECORDIAL LEADS [QRS DEFLECTION < 1.0 mV IN CHEST LEADS] POSSIBLE ANTERIOR MYOCARDIAL INFARCTION [30 ms Q WAVE IN V3/V4, OR R < 0.2 mV IN V4], PROBABLY OLD INFERIOR MYOCARDIAL INFARCTION [40+ ms Q WAVE AND/OR ST/T ABNORMALITY IN II/aVF], PROBABLY OLD Compared to ECG 04/03/2023 21:59:59 Myocardial infarct finding now present Electronically Signed On 10-07-2024 21:53:51 EDT by LITO EDEN M.D.
--- NOTE | 2024-10-07 12:15 | XR_ITS ---
XR/XR chest 2V IMPRESSION: NO ACUTE CARDIOPULMONARY ABNORMALITY. Impression dictated by: Kip Mon Jr., D.O. 10/07/2024 12:59 PM Dictation Location: [place] [address] Electronically authenticated by: [id number] Y Date: 10/07/2024 12:59
[2024-10-07 12:29] LABS: Basophils Absolute Auto 0.1 10^3/uL (0.0-0.1); Basophils Percent Auto 1.1 % (0.2-2.0); Eosinophils Absolute Auto 0.1 10^3/uL (0.0-0.7); Eosinophils Percent Auto 3.1 % (0.9-7.0); Hematocrit 33.2 % (36.0-48.0); Hemoglobin 11.1 g/dL (12.0-16.0); Immature Granulocytes Abs Auto 0.01 10^3/uL (0.00-0.03); Immature Granulocytes Pct Auto 0.2 % (0.0-0.5); Lymphocytes Absolute Auto 1.7 10^3/uL (1.2-3.8); Lymphocytes Percent Auto 38.2 % (20.5-60.0); Mean Corpuscular HGB Conc 33.4 g/dL (29.9-35.2); Mean Corpuscular Hemoglobin 30.1 pg (26.7-34.0); Mean Platelet Volume 11.2 fL (9.5-13.5); Monocytes Absolute Auto 0.3 10^3/uL (0.3-0.8); Neutrophils Absolute Auto 2.2 10^3/uL (1.4-6.5); Neutrophils Percent Auto 50.4 % (43.0-75.0); Platelet Count 234 10^3/uL (150-450); Red Blood Count 3.69 10^6/uL (4.20-5.40); Red Cell Distribution Width 12.9 % (11.0-15.0); White Blood Count 4.5 10^3/uL (4.0-11.0)
[2024-10-07 12:39] LABS: INR 1.03; Prothrombin Time 10.9 sec (9.0-11.6)
[2024-10-07 12:55] LABS: Anion Gap 13.3; Calcium 9.1 mg/dL (8.5-10.1); Carbon Dioxide 25.7 mmol/L (21.0-32.0); Chloride 108 mmol/L (98-107); Estimated GFR (African America 43 (>=60 mL/min/1.73m^2); Estimated GFR (Non-African Ame 36 (>=60 mL/min/1.73m^2); Glucose 93 mg/dL (74-106); Sodium 143 mmol/L (136-145)
--- NOTE | 2024-10-07 13:59 | PM.PRESUREVA ---
History of Present Illness History of Present Illness Chief complaint: M96.1 Narrative: Patient presents for presurgical testing. The patient reports a long history of low back pain. She has had 2 prior lumbar spine surgeries, injections, home exercise program, pain medication, muscle relaxers, and continues to have pain which is worse after standing on her feet for long periods of time and does radiate to bilateral legs intermittently. She denies numbness, tingling, or weakness. Review of Systems ROS Narrative REVIEW OF SYSTEMS: Negative except as stated in HPI, ten or more systems reviewed. Constitutional: No fever, chills, weakness ENT: No sore throat or epistaxis Cardiovascular: No edema, chest pain, palpitations, or activity intolerance Respiratory: No shortness of breath, cough, or wheezing Gastrointestinal: No abdominal pain, constipation, diarrhea, or vomiting Genitourinary: No dysuria or hematuria Neurological: No numbness, tingling, weakness, or headache Psychiatric: No mood changes [facility] Medical History (Updated 10/07/24 @ 14:03 by Shanika Cm NP) Back pain ?M54.9 - Dorsalgia, unspecified (ICD-10) Arthritis ?M19.90 - Unspecified osteoarthritis, unspecified site (ICD-10) Diverticulosis ?K57.90 - Diverticulosis of intestine, part unspecified, without perforation or abscess without bleeding (ICD-10) Extremity edema ?R60.0 - Localized edema (ICD-10) Delayed recovery from anesthesia MRSA infection ?A49.02 - Methicillin resistant Staphylococcus aureus infection, unspecified site (ICD-10) Stage III chronic kidney disease ?N18.30 - Chronic kidney disease, stage 3 unspecified (ICD-10) Spinal stenosis of thoracolumbar region ?M48.05 - Spinal stenosis, thoracolumbar region (ICD-10) Spinal stenosis of lumbar region at multiple levels ?M48.061 - Spinal stenosis, lumbar region without neurogenic claudication (ICD-10) Seasonal allergies ?J30.2 - Other seasonal allergic rhinitis (ICD-10) RLS (restless legs syndrome) ?G25.81 - Restless legs syndrome (ICD-10) Kidney stones ?N20.0 - Calculus of kidney (ICD-10) Myalgia ?M79.10 - Myalgia, unspecified site (ICD-10) Migraine ?G43.909 - Migraine, unspecified, not intractable, without status migrainosus (ICD-10) Microscopic hematuria ?R31.29 - Other microscopic hematuria (ICD-10) Lumbar disc herniation ?M51.26 - Other intervertebral disc displacement, lumbar region (ICD-10) Lower extremity edema ?R60.0 - Localized edema (ICD-10) Irritable bowel syndrome with diarrhea ?K58.0 - Irritable bowel syndrome with diarrhea (ICD-10) Insomnia ?G47.00 - Insomnia, unspecified (ICD-10) Hypomagnesemia ?E83.42 - Hypomagnesemia (ICD-10) Hyperlipidemia ?E78.5 - Hyperlipidemia, unspecified (ICD-10) Hyperkalemia ?E87.5 - Hyperkalemia (ICD-10) GERD (gastroesophageal reflux disease) ?K21.9 - Gastro-esophageal reflux disease without esophagitis (ICD-10) Fatigue ?R53.83 - Other fatigue (ICD-10) Dyspnea ?R06.00 - Dyspnea, unspecified (ICD-10) Depression ?F32.A - Depression, unspecified (ICD-10) Lumbar degenerative disc disease ?M51.369 - Other intervertebral disc degeneration, lumbar region without mention of lumbar back pain or lower extremity pain (ICD-10) Postlaminectomy syndrome ?M96.1 - Postlaminectomy syndrome, not elsewhere classified (ICD-10) Coronary arteriosclerosis ?I25.10 - Atherosclerotic heart disease of [place] coronary artery without angina pectoris (ICD-10) C. difficile diarrhea ?A04.72 - Enterocolitis due to Clostridium difficile, not specified as recurrent (ICD-10) Bradycardia ?R00.1 - Bradycardia, unspecified (ICD-10) Anemia ?D64.9 - Anemia, unspecified (ICD-10) Abdominal hernia ?K46.9 - Unspecified abdominal hernia without obstruction or gangrene (ICD-10) Hypertension ?I10 - Essential (primary) hypertension (ICD-10) Bipolar 1 disorder ?F31.9 - Bipolar disorder, unspecified (ICD-10) Anxiety ?F41.9 - Anxiety disorder, unspecified (ICD-10) Diabetes ?E11.9 - Type 2 diabetes mellitus without complications (ICD-10) URIEL on CPAP ?G47.33 - Obstructive sleep apnea (adult) (pediatric) (ICD-10) Sleep apnea ?G47.30 - Sleep apnea, unspecified (ICD-10) High cholesterol ?E78.00 - Pure hypercholesterolemia, unspecified (ICD-10) CHF (congestive heart failure) ?I50.9 - Heart failure, unspecified (ICD-10) Surgical History (Updated 10/07/24 @ 11:44 by Shanika Cm NP) S/P epidural steroid injection ?Z92.241 - Personal history of systemic steroid therapy (ICD-10) H/O colonoscopy ?Z98.890 - Other specified postprocedural states (ICD-10) H/O cervical spine surgery ?Z98.890 - Other specified postprocedural states (ICD-10) H/O bariatric surgery ?Z98.84 - Bariatric surgery status (ICD-10) History of hysterectomy ?Z90.710 - Acquired absence of both cervix and uterus (ICD-10) History of shoulder surgery ?Z98.890 - Other specified postprocedural states (ICD-10) History of neck surgery ?Z98.890 - Other specified postprocedural states (ICD-10) History of back surgery ?Z98.890 - Other specified postprocedural states (ICD-10) History of heart artery stent (~2009) ?Z95.5 - Presence of coronary angioplasty implant and graft (ICD-10) Family History (Updated 10/07/24 @ 11:44 by Shanika Cm NP) Other Family history of DVT Family history of aneurysm Family history of cancer Family history of coronary artery disease Family history of diabetes mellitus Family history of heart disease Family history of hypertension Family history of myocardial infarction Family history of renal failure Family history of stroke Social History (Updated 10/07/24 @ 11:38 by Shanika Cm NP) Within the past year, how often did you have a drink containing alcohol: never Score interpretation: A score less than 3 is consistent with normal alcohol consumption. Smoking status: Never smoker Non-prescribed substance use: denies use Previous occupational history: [employer] Highest level of school completed/degree received: high school graduate Little interest or pleasure in doing things: not at all Feeling down, depressed, or hopeless: not at all Meds Home Medications and Allergies Home Medications ?Medication ?Instructions ?Recorded ?Confirmed ?Type amlodipine 10 mg tablet 10 mg PO QDAY 12/18/22 10/07/24 History aspirin 81 mg chewable tablet 81 mg PO QDAY 12/18/22 10/07/24 History atorvastatin 80 mg tablet 80 mg PO QDAY 12/18/22 10/07/24 History buspirone 30 mg tablet 30 mg PO BID 12/18/22 10/07/24 History cariprazine 6 mg capsule (Vraylar) 6 mg PO Q24H 12/18/22 10/07/24 History fenofibrate nanocrystallized 145 145 mg PO QDAY 12/18/22 10/07/24 History mg tablet gabapentin 600 mg tablet 600 mg PO QDAY PRN neuromuscular 12/18/22 10/07/24 History blockade isosorbide mononitrate 30 mg 30 mg PO QDAY 12/18/22 10/07/24 History tablet,extended release 24 hr metoprolol succinate 25 mg 12.5 mg PO QDAY 12/18/22 10/07/24 History tablet,extended release 24 hr sacubitril 49 mg-valsartan 51 mg 0.5 tab PO BID 12/18/22 10/07/24 History tablet (Entresto) tizanidine 4 mg tablet 4 mg PO Q8H PRN muscle spasticity 12/18/22 10/07/24 History cetirizine 10 mg tablet (Zyrtec) 10 mg PO DAILY PRN allergy symptoms 01/01/23 10/07/24 History ferrous sulfate 134 mg (27 mg 134 mg PO BID 01/01/23 10/07/24 History iron) tablet (High Potency Iron) oxycodone-acetaminophen 7.5 mg-325 1 tab PO BID PRN pain #60 tabs 08/28/24 10/07/24 Rx mg tablet (Percocet) tirzepatide 5 mg/0.5 mL 5 mg subcut QWEEK 10/01/24 10/01/24 History subcutaneous pen injector (Mounjaro) aripiprazole 30 mg tablet 30 mg PO DAILY 10/07/24 10/07/24 History benztropine 0.5 mg tablet 0.5 mg PO BID 10/07/24 10/07/24 History cholecalciferol (vitamin D3) 125 5,000 unit PO DAILY 10/07/24 10/07/24 History mcg (5,000 unit) capsule cyanocobalamin (vitamin B-12) 2,000 mcg sublingual DAILY 10/07/24 10/07/24 History 1,000 mcg sublingual lozenge fluoxetine 10 mg capsule 10 mg PO DAILY 10/07/24 10/07/24 History fluoxetine 40 mg capsule 40 mg PO DAILY 10/07/24 10/07/24 History fluticasone propionate 50 2 spray intranasal Q12H 10/07/24 10/07/24 History mcg/actuation nasal spray,suspension nitroglycerin 0.4 mg sublingual 0.4 mg sublingual Q5M PRN chest 10/07/24 10/07/24 History tablet pain sennosides 8.6 mg-docusate sodium 1 tab-cap PO DAILY 10/07/24 10/07/24 History 50 mg capsule Allergies Allergy/AdvReac Type Severity Reaction Status Date / Time Sulfa (Sulfonamide Allergy Mild Hives Verified 10/07/24 11:26 Antibiotics) prochlorperazine (From AdvReac Intermediate Agitated Verified 10/07/24 11:26 Compazine) promethazine (From Phenergan) AdvReac Intermediate Agitated Verified 10/07/24 11:26 sulfamethoxazole (From AdvReac Mild Hives Verified 10/07/24 11:26 Bactrim) trimethoprim (From Bactrim) AdvReac Mild Hives Verified 10/07/24 11:26 Exam Narrative Exam Narrative: Constitutional: Awake, alert, comfortable, well-appearing, nontoxic, interactive, vital signs as charted Head: Normocephalic, atraumatic Neck: Supple, normal appearance, normal range of motion, no meningeal signs, no lymphadenopathy Respiratory: No respiratory distress, breath sounds clear Cardiovascular: Regular rate and rhythm, strong and regular heart tones Abdomen: Nontender, normal bowel sounds, soft Musculoskeletal: Normal gait, no swelling or edema, limited thoracic and lumbar spine range of motion due to pain, bilateral lumbar paraspinal muscle tenderness Skin: No rashes or induration, no lesions, only visible skin inspected Neuro: No neurological deficits, normal sensation Psychiatric: Oriented ?3, normal affect Assessment and Plan Assessment and Plan (1) Postlaminectomy syndrome: (2) Back pain: Plan Spinal cord stimulator trial scheduled with Dr. Zuniga October 20, 2024.
== END 2024-10-07 10:58 | disposition home or self-care (01) ==
LOC: PST 10:57
PROVIDERS: PCP Nurse Practitioner; Visit Provider Anesthesiology
DX: Z01.810 Encounter for preprocedural cardiovascular examination (principal); Z01.812 Encounter for preprocedural laboratory examination; Z01.818 Encounter for other preprocedural examination; M96.1 Postlaminectomy syndrome, not elsewhere classified
CPT/HCPCS: 36415; 71046; 80048; 85025; 85610; 85730; 93005; G0463

== ENCOUNTER 2024-11-13 07:14 | Outpatient (OUT) | payer BC, SELFPAY ==
--- NOTE | 2024-11-13 07:15 | NM_ITS ---
Patient Name: SHARLENE HUMPHREYS MR#: [id number] : 1970 Exam Date: 11/13/2024 Ordering Doctor: DR ARTURO ESPINOZA M.D. RADIOLOGY REPORT PROCEDURE: NM ROZ PERF SPECT REST STR COMPARISON: None. INDICATIONS: PRE-OP EVALUATION, CORONARY ARTERY DISEASE TECHNIQUE: Exam Description: Stress/Rest one day protocol gated SPECT Rest Imagin.8 mCi Tc-99m Cardiolite IV on 11/13/2024 Stress Imaging 30.7 mCi Tc-99m Cardiolite IV on 11/13/2024 Exercise Protocol: 0.4 mg Lexiscan given IV Heart Rate (bpm): Rest: 46 Max: 64 PMHR: 38 Blood Pressure: Rest: 117/73 Max: 130/66 Symptoms: Rest and peak stress ECG findings were pending and the EKG portion of the study was pending per attending physician [facility] . For more details please see separate cardiac stress test report. FINDINGS: QUALITY OF STUDY: Fair PERFUSION DEFECT: 1.LOCATION: Inferolateral SIZE: Small SEVERITY: Mild TYPE: Reversible 2.LOCATION apical SIZE small SEVERITY moderate TYPE fixed WALL MOTION: LV SIZE: 131 mL. TID / TCD: 1.0 LVEF: Calculated EF 74%. SUMMARY: Abnormal myocardial perfusion imaging study CONCLUSION: Abnormal myocardial perfusion stress study showing evidence of small area of mild inferolateral ischemia Normal left ventricular systolic function, ejection fraction 74% No transient ischemic dilatation, TID 1.0 EKG portion of stress test is reported separately Dictated by: Goldy Hernandez MD on 11/17/2024 at 09:48 Approved by: Goldy Hernandez MD on 11/17/2024 at 10:01
--- OUTSIDE RECORDS SUMMARY | 2024-11-13 07:17 | XMS_ITS | CCD ---
Author Organization [facility] Care Team Providers Care Delivery Sales Worker Name Role Phone Peng Merino Admitting Unavailable Peng Merino Attending Unavailable GEOVANNI BRUNNER Primary Care Unavailable HAMMAD LING Referring Unavailabl e [place] Procedure Practitioner Unavailab TK Beaulieu Surgeon Unavailable Christian Hamilton Unavailable Janene Lew Primary Care Provider MD Christian Hamilton Attending Provider ELIER Bolivar Emma Attending Provider Emma Bolivar Unavailable Halle Mac Unavailable Janene Lew Primary Care Provider [phone] STU HernnadezLYNNE Antunez Emergency Provider Ivan Sams Unavailable AICHHOLZ, TIE KNITTER HELPER JANENE Consulting Unavailable AICHHOLZ, TIE KNITTER HELPER JANENE Attending Unavailable AICHHOLZ, TIE KNITTER HELPER JANENE Admitting Unavailable AICHHOLZ, TIE KNITTER HELPER JANENE Primary Care Unavailable AICHHOLZ, TIE KNITTER HELPER JANENE Consulting Unavailable AICHHOLZ, TIE KNITTER HELPER JANENE Attending Unavailable AICHHOLZ, TIE KNITTER HELPER JANENE Admitting Unavailable AICHHOLZ, TIE KNITTER HELPER JANENE Primary Care Unavailable AICHHOLZ, TIE KNITTER HELPER JANENE Primary Care Unavailable AICHHOLZ, TIE KNITTER HELPER JANENE Consulting Unavailable AICHHOLZ, TIE KNITTER HELPER JANENE Admitting Unavailable AICHHOLZ, TIE KNITTER HELPER JANENE Attending Unavailable DR MYRIAM SAMANIEGO Attending Unavailable DR MYRIAM SAMANIEGO Admitting Unavailable DR MYRIAM SAMANIEGO Consulting Unavailable AICHHOLZ, TIE KNITTER HELPER JANENE Primary Care Unavailable AICHHOLZ, TIE KNITTER HELPER JANENE Primary Care Unavailable DWAYNE FRIEDMAN Admitting Unavailable DWAYNE FRIEDMAN Attending Unavailable CLEMENT PLUMMER Consulting Unavailable Wan Jenkins Consulting Unavailable AICHHOLZ, TIE KNITTER HELPER JANENE Primary Care Unavailable EVON TRAMMELL Attending Unavailable EVON TRAMMELL Admitting Unavailable EVON TRAMMELL Consulting Unavailable LUZ COELLO Consulting Unavailable NATHAN COLE Consulting Unavailable LIN GARRETT Consulting Unavailable AICHHOLZ, TIE KNITTER HELPER JANENE Primary Care Unavailable AICHHOLZ, TIE KNITTER HELPER JANENE Admitting Unavailable AICHHOLZ, TIE KNITTER HELPER JANENE Attending Unavailable DR ALEX ALLEN V Consulting Unavailable AICHHOLZ, TIE KNITTER HELPER JANENE Consulting Unavailable AICHHOLZ, TIE KNITTER HELPER JANENE Consulting Unavailable AICHHOLZ, TIE KNITTER HELPER JANENE Attending Unavailable AICHHOLZ, TIE KNITTER HELPER JANENE Admitting Unavailable AICHHOLZ, TIE KNITTER HELPER JANENE Primary Care Unavailable DR KATHY LOBATO Consulting Unavailable AICHHOLZ, TIE KNITTER HELPER JANENE Attending Unavailable AICHHOLZ, TIE KNITTER HELPER JANENE Admitting Unavailable AICHHOLZ, TIE KNITTER HELPER JANENE Primary Care Unavailable DR ALEX ALLEN V Consulting Unavailable AICHHOLZ, TIE KNITTER HELPER JANENE Consulting Unavailable AICHHOLZ, TIE KNITTER HELPER JANENE Consulting Unavailable AICHHOLZ, TIE KNITTER HELPER JANENE Primary Care Unavailable AICHHOLZ, TIE KNITTER HELPER JANENE Attending Unavailable AICHHOLZ, TIE KNITTER HELPER JANENE Admitting Unavailable AICHHOLZ, TIE KNITTER HELPER JANENE Primary Care Unavailable AICHHOLZ, TIE KNITTER HELPER JANENE Admitting Unavailable AICHHOLZ, TIE KNITTER HELPER JANENE Consulting Unavailable AICHHOLZ, TIE KNITTER HELPER JANENE Attending Unavailable DR KATHY LOBATO Consulting Unavailable AICHHOLZ, TIE KNITTER HELPER JANENE Primary Care Unavailable BAKHOUS, AZIZ Admitting Unavailable BAKHOUS, AZIZ Attending Unavailable AICHHOLZ, TIE KNITTER HELPER JANENE Attending Unavailable AICHHOLZ, TIE KNITTER HELPER JANENE Admitting Unavailable AICHHOLZ, TIE KNITTER HELPER JANENE Primary Care Unavailable AICHHOLZ, TIE KNITTER HELPER JANENE Primary Care Unavailable AICHHOLZ, TIE KNITTER HELPER JANENE Consulting Unavailable AICHHOLZ, TIE KNITTER HELPER JANENE Attending Unavailable AICHHOLZ, TIE KNITTER HELPER JANENE Admitting Unavailable DR KATHY LOBATO Consulting Unavailable AICHHOLZ, TIE KNITTER HELPER JANENE Primary Care Unavailable AICHHOLZ, TIE KNITTER HELPER JANENE Admitting Unavailable AICHHOLZ, TIE KNITTER HELPER JANENE Attending Unavailable AICHHOLZ, TIE KNITTER HELPER JANENE Consulting Unavailable AICHHOLZ, TIE KNITTER HELPER JANENE Primary Care Unavailable DOLORES STRATTON Attending Unavailable DOLORES STRATTON Admitting Unavailable MR DELIA HENDRIX Consulting Unavailable AMBER ., DOLORES Consulting Unavailable ALEX AVINA Consulting Unavailable LOUANN, AGUSTINA JANENE Primary Care Unavailable EVON TRAMMELL Attending Unavailable EVON TRAMMELL Admitting Unavailable EVON TRAMMELL Consulting Unavailable Janene Lew Primary Care Provider MD Valdemar Alonso Attending Provider [phone] MD Fauzia Huffman Attending Provider UnavailMD Halle Felton Referring Provider MARKEL HAQ Primary Care Unavailable Janene Lew Attending Unavailable Janene Lew Admitting Unavailable Janene Lew Primary Care Provider MD Fauzia Huffman Attending Provider UnavailMD Halle Felton Referring Provider MD Halle Mac Attending Provider Janene Lew Primary Care Provider MD Valdemar Alonso Attending Provider MD [facility] [phone] MD Emmanuel [facility] Other Provider MD Fernando Rosenberg Attending Provider MD Valdemar Alonso Attending Provider [phone] MD Valdemar Alonso Attending Provider MD Ban Clemente Attending Provider [phone] Girenee SHARMA, Andrius Vytautchuck Attending Unavailable Girenee SHARMA, Andrius Vytautas Attending Unavailable Man SHARMA, Andrius Vytautas Attending Unavailable Man SHARMA, Andrius Vytautas Attending Unavailable Girenee SHARMA, Andrius Vytautas Attending Unavailable Markel Haq MD Primary Care Provider Louann SHAREPOINT ADMIN, Janene Unavailable ELTAHAWY, EHAB Attending Unavailable ELTAHAWY, EHAB Attending Unavailable ELTAHAWY, EHAB Referring Unavailable PETSAYICK, MARYA M Attending Unavailable AICHJANENE DANIELS Attending Unavailable BAN ARTIS Attending Unavailable PETZNICK, MARYA M Attending Unavailable AICHHOLZ, JANENE Referring Unavailable AICHJEREMIAH, JANENE Attending Unavailable PETZNICK, MARYA M Attending Unavailable PETZNICK, MARYA M Attending Unavailable AICHHOLRufus, JANENE Attending Unavailable Bakhous, Aziz Admitting Unavailable Bakhous, Aziz Attending Unavailable Janene Lew J Primary Care Unavailable Celeste, Valdemar Admitting Unavailab le Celeste, Valdemar Attending Unavailab le Janene Lew Primary Care Unavailable Allergies Allergy Classification Reported Allergen(s) Allergy Type Date of Onset Reaction(s) Facility (2 sources) Cephalexin Drug Allergy 10-06-19 10 [facility] Repository (2 sources) Levamisole Drug Allergy 05-22-19 13 [facility] (2 sources) Omeprazole; Translations: [OMEPRAZOLE] Drug Allergy 04-20-19 16 [facility] Repository (14 sources) Prochlorperazine Drug Allergy 10-06-19 10 Unknown [facility] (14 sources) Sulfamethoxazole / Trimethoprim Drug Allergy 10-06-19 10 Unknown [facility] (12 sources) Penicillins (Antibiotic) Propensity to adverse reactions Unknown [facility] Other (20 sources) Promethazine; Translations: [PROMETHAZINE] Drug Allergy 06-28-19 14 Unknown, Seizure [facility] (20 sources) empagliflozin; Translations: [EMPAGLIFLOZIN] Drug Allergy 08-11-19 22 Unknown Reaction [facility] (20 sources) Penicillins; Translations: [Penicillins] Allergy to substance 06-28-19 14 [facility] (20 sources) Prochlorperazine; Translations: [PROCHLORPERAZINE] Drug Allergy 06-28-19 14 [facility] (20 sources) Sulfamethoxazole; Translations: [SULFAMETHOXAZOLE] Drug Allergy 06-28-19 14 [facility] (9 sources) Trimethoprim; Translations: [trimethoprim] Drug Allergy 08-11-19 22 [facility] (1 source) Sulfonamides (Antibiotic) Drug allergy (disorder) 06-10-19 15 [facility] Repository (20 sources) zolpidem; Translations: [ZOLPIDEM] Drug Allergy 10-01-19 24 Unknown [facility] (20 sources) Cephalexin; Translations: [CEPHALEXIN] Drug Allergy 06-28-19 14 [facility] (20 sources) Esomeprazole Drug Allergy 04-27-19 24 GI intolerance [facility] (20 sources) Omeprazole Drug Allergy 04-27-19 24 GI intolerance [facility] (20 sources) pantoprazole; Translations: [PANTOPRAZOLE] Drug Allergy 06-23-19 17 GI intolerance [facility] (20 sources) Sulfamethoxazole / Trimethoprim; Translations: [SULFAMETHOXAZOLE-T RIMETHOPRIM] Drug Allergy 04-03-20 14 [facility] (1 source) Doxycycline; Translations: [DOXYCYCLINE CALCIUM] Drug Allergy 06-28-19 14 [facility] Repository (1 source) Esomeprazole; Translations: [ESOMEPRAZOLE MAGNESIUM] Drug Allergy 06-23-19 17 [facility] Repository (1 source) PHENERGAN PLAIN; Translations: [PHENERGAN PLAIN] Propensity to adverse reactions to drug (disorder) 09-17-19 16 [facility] Repository (1 source) Promethazine Drug Allergy 03-12-20 [facility] Repository Medications Current Medications Medication Drug [...] morning and 1 tablet before bedtime. Active [id number] 200 actuat albuterol 0.09 mg/actuat metered dose inhaler (6 sources) beta2-Adrenergic Agonist Start: 06-04-2021 take 1 puff(s) by inhalation every four hours Albuterol Sulfate (Ventolin Hfa) 90 mcg/actuation HFA aerosol inhaler Active 2 PUFF INHALATION Q4H June 04, 2021 1:00am Albuterol Active amLODIPine 10 mg oral tablet (20 sources) Dihydropyridine Calcium Channel Seema Start: 10-16-2023 End: 12-02-2024 take 1 tablet by mouth once daily amLODIPine (Norvasc) 10 MG tablet Indications: Primary hypertension Take 1 tablet (10 mg) by mouth Daily 90 tablet 1 09/03/2024 12/02/2024 Active Start: 08-15-2023 End: 10-02-2023 take 10 [...] MG PO Daily 90 June 06, 2021 1:00am take 1 tablet [...] completed) benztropine mesylate 0.5 mg oral tablet (20 sources) Anticholinergic, Antihistamine Start: 02-18-2024 benztropine (Cogenti n) 0.5 MG tablet 02/18/2024 Active Biotin (6 sources) Biotin Active Blood Glucose Monitoring Suppl (True Metrix Air Glucose Meter) w/Device kit (20 sources) Start: 11-03-2024 Blood Glucose Monitoring Suppl (True Metrix Air Glucose Meter) w/Device kit Indications: Type 2 diabetes mellitus without complication, without long-term current use of insulin ([facility]) 1 each Daily 1 kit 11/03/2024 Active Start: 07-02-2023 End: 11-03-20[address] (True Metrix Air Glucose Meter) w/Device kit Indications: Type 2 diabetes mellitus without complication, without long-term current use of insulin ([facility]) 1 each Daily 1 kit 07/02/2023 11/03/2024 Discontinued (Reorder) Start: 07-02-2023 Blood Glucose Monitoring Suppl (True Metrix Air Glucose Meter) w/Device kit Indications: Type 2 diabetes mellitus without complication, without long-term current use of insulin ([facility]) 1 each Daily 1 kit 07/02/2023 Active [...] complication, without long-term current use of insulin ([facility]/HCC) 1 each Daily 1 kit 07/02/2023 Active [...] products docusate sodium 50 mg / sennosides, longterm 8.6 mg oral tablet (20 sources) take [...] (Tricor) 145 MG tablet Indications: Mixed hyperlipidemia Take 1 tablet (145 mg) by [...] capsule (20 sources) Serotonin Reuptake Inhibitor Start: 10-09-2024 FLUoxetine (PROzac) 20 MG capsule Take 20 mg by mouth Daily TAKE 1 CAPSULE BY MOUTH ONCE DAILY TAKE WITH 40 MG FOR A TOTAL OF 60 MG DAILY 10/09/2024 Active Start: 08-21-2024 take 1 capsule by mo [facility] once daily FLUoxetine (PROzac) 40 MG capsule Take 40 mg by mouth Daily 08/21/2024 Active Start: 10-10-2023 End: 09-03-2024 take 1 capsule by mouth once daily FLUoxetine (PROzac) 20 MG capsule Take 20 mg by mouth Daily 10/10/2023 09/03/2024 Discontinued (Therapy completed) Start: 10-01-2023 End: 10-16-2023 take 10 mg [...] tablet (20 sources) Loop Diuretic Start: 04-30-2023 End: 11-03-2024 furosemide (Lasix) 20 MG tablet Indications: Swelling of both lower extremities Take 1 tablet (20 mg) by mouth in the morning. May increase to 2 pills IF worsening in leg swelling. 60 tablet 2 04/30/2023 11/03/2024 Discontinued (Therapy completed) take 1 tablet by brandin every twenty-four hours Lasix 20 MG 1 tablet Orally Once a day Active gabapentin 600 mg oral tablet (20 sources) Anti-epileptic Agent Start: 10-23-2023 End: 08-24-2024 take 1 tablet by mouth twice daily as needed gabapentin (Neurontin) 600 MG tablet Indications: Restless leg syndrome Take 1 tablet (600 mg) by mouth 2 (two) times a day as needed (RLS) 60 tablet 2 07/25/2024 Active Start: 10-02-2023 End: 10-16-2023 take 600 [...] Start: 11-10-2021 take 2 tablets by mo [facility] every twelve hours Gabapentin 600 MG 2 tablets Orally bid for 20 days Oct, Active Start: 09-29-2021 take 1-2 capsules by mouth twice daily Gabapentin 300 MG 1-2 capsule Orally twice a day for 30 day(s) Sep, Active Start: 12-05-2019 take 1 capsule by mo [facility] every twenty-four hours Gabapentin 300 [...] sources) Nonergot Dopamine Agonist Start: 03-21-2024 End: 10-09-2024 take 1 tablet by mouth at bedtime rOPINIRole (Requip) 0.25 MG tablet Indications: Restless leg syndrome Take 1 tablet (0.25 mg) by mouth at bedtime 30 tablet 2 09/09/2024 Active Start: 10-24-2023 End: 01-17-2024 take 1 [...] Active Tirzepatide (Mounjaro) 7.5 MG/0.5ML solution auto-injector (20 sources) Start: 10-08-2024 inject 7.5 mg by subcutaneous injection every week Tirzepatide (Mounjaro) 7.5 MG/0.5ML solution auto-injector Indications: Type 2 diabetes mellitus with other circulatory complications (HCC) INJECT 7.5 MG SUBCUTANEOUSLY ONCE A WEEK 2 mL 1 10/08/2024 Active Start: 06-30-2024 inject 7.5 mg by sub cutaneous injection every week Tirzepatide (Mounjaro) 7.5 MG/0.5ML solution auto-injector Indications: Type 2 diabetes mellitus with other circulatory complications (HCC) INJECT 7.5 MG SUBCUTANEOUSLY UNDER THE SKIN 1 TIME PER WEEK 2 mL 3 06/30/2024 Active Start: 06-30-2024 inject 7.5 mg by sub cutaneous injection [...] (20 sources) Central alpha-2 Adrenergic Agonist Start: 11-12-2024 End: 12-12-2024 take 1 tablet by mouth every eight hours as needed for muscle spasms and muscle spasms tiZANidine (Zanaflex) 4 MG tablet Indications: Muscle spasm Take 1 tablet (4 mg) by mouth every 8 (eight) hours if needed for muscle spasms 90 tablet 1 11/12/2024 12/12/2024 Active Start: 09-02-2024 End: 10-02-2024 take 1 tablet by mouth every eight hours as needed for muscle spasms and muscle spasms tiZANidine (Zanaflex) 4 MG tablet Indications: Muscle spasm Take 1 tablet (4 mg) by mouth every 8 (eight) hours if needed for muscle spasms 90 tablet 1 09/02/2024 Active Start: 02-25-2024 End: 06-26-2024 take 1 tablet [...] 2023 10:09am orally per package directions Start: 03-11-2023 Methylpredniso lone Active 0 PO .COMPLEX June [...] [Chronic kidney disease, stage 3b] Onset: 4 Congestive heart failure; nonhypertensive (20 sources) Chronic diastolic heart failure; Translations: [Chronic diastolic (congestive) heart failure] Onset: 6 07-02-2023 Chronic Coronary atherosclerosis and other heart disease (20 sources) Coronary arteriosclerosis; Translations: [Atherosclerotic heart disease of [place] coronary artery without angina pectoris] Onset: 3 08-11-2021 Chronic Diabetes mellitus with complications (20 sources) Type 2 diabetes mellitus; Translations: [Type 2 diabetes mellitus with hypoglycemia without coma] Onset: 2 Resolved: 4 Chronic Diabetes mellitus without complication (1 source) Type 2 diabetes mellitus without complications; Translations: [...] 4 10-10-2023 Chronic Other aftercare (1 source) penitentiary (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; Translations: [STEWARD/STEWARDESS SECOND CURRENT USE OF ASPIRIN] Onset: 3 Episodic Other aftercare (1 source) rn long term care (current) use of oral hypoglycemic drugs; Translations: [[facility] USE ORAL HYPOGLYCEMIC DX] Onset: 3 Episodic Other aftercare (1 source) Other intermediate manager (current) drug therapy; Translations: [OTH [facility] CURRENT DRUG THERAPY] Onset: 3 Episodic Other connective tissue disease (20 sources) Spasm; Translations: [Other muscle spasm] Onset: 4 07-24-2023 Episodic Other gastrointestinal disorders (20 sources) Irritable [...] (BMI) of 45.0 to 49.9 in adult ([facility])] Onset: 4 02-19-2024 Chronic Other nutritional; endocrine; [...] disc displacement, thoracolumbar region] Onset: 2 Resolved: 5 Chronic Syncope (2 sources) Syncope and collapse; Translations: [Syncope and collapse] Onset: 5 Episodic Unclassified (1 source) CHRN KIDNEY DISEASE [...] [Left lower quadrant pain] Onset: 02-21-2022 Resolved: 09-03-2024 Episodic Acute and unspecified renal failure (20 sources) Acute renal failure syndrome; Translations: [Acute kidney failure, unspecified] Onset: 10-24-2023 10-10-2023 Episodic Calculus of urinary tract (20 sources) Kidney stone; Translations: [Calculus of kidney] Onset: 07-02-2023 07-02-2023 Episodic Cardiac dysrhythmias (20 sources) Bradycardia; Translations: [Bradycardia, unspecified] Onset: 04-30-2023 04-30-2023 Episodic Conditions associated with dizziness or vertigo (2 sources) Dizziness and giddiness; Translations: [Dizziness and giddiness] Onset: 11-13-2023 Episodic Deficiency and other anemia (4 sources) Anemia, unspecified; Translations: [ANEMIA UNSPECIFIED] Onset: 01-23-2022 Episodic Deficiency and other anemia (20 sources) Anemia; Translations: [Anemia, unspecified] Onset: 04-30-2023 Resolved: 10-24-2023 10-24-2023 Episodic Disorders of teeth and jaw (20 sources) Infection of tooth; Translations: [Periapical abscess without sinus] Onset: 09-20-2023 Resolved: 09-03-2024 09-20-2023 Episodic Fluid and electrolyte disorders (20 [...] Opportunistic mycosis; Translations: [Candidiasis, unspecified] Onset: 10-03-2023 Resolved: 09-03-2024 10-03-2023 Episodic Nutritional deficiencies (20 sources) Cobalamin [...] 05-03-2023 05-03-2023 Episodic Other connective tissue disease (18 sources) Foot pain; Translations: [Pain in left foot] Onset: 07-15-2024 07-15-2024 Episodic Other gastrointestinal disorders (4 sources) Diarrhea, [...] [Dyspnea, unspecified] Onset: 07-02-2023 07-02-2023 Episodic Other non-traumatic joint disorders (18 sources) Acute ankle pain; Translations: [Pain in left ankle and joints of left foot] Onset: 07-15-2024 07-15-2024 Episodic Other nutritional; endocrine; and metabolic [...] Onset: 03-27-2022 Episodic Other upper respiratory infections (20 sources) Acute pansinusitis; Translations: [Acute pansinusitis, unspecified] Onset: 03-06-2024 Resolved: 09-03-2024 03-06-2024 Episodic Residual codes; unclassified (8 sources) [...] history of other specified conditions] Onset: 07-02-2023 Resolved: 09-03-2024 07-02-2023 Episodic Spondylosis; intervertebral disc disorders; other back problems (20 sources) Radiculopathy, lumbar region; Translations: [Chronic low back pain] Onset: 08-30-2021 Resolved: 08-30-2021 Episodic Unclassified (1 source) CONTACT W/AND (SUSP) EXPOS COVID-19; Translations: [CONTACT W/AND (SUSP) EXPOS COVID-19] Onset: 12-21-2021 Urinary tract infections (20 sources) Escherichia coli urinary tract infection; Translations: [Urinary tract infection, site not specified] Onset: 07-05-2023 Resolved: 09-03-2024 07-05-2023 Episodic Results Test Name Value Interpretation Reference Range Facility HbA1c (Bld) [Mass fraction]o n 11-03-2024 Interpretation and review of laboratory results Normal [facility] - Hematology and Cell countson 11-03-2024 HbA1c (Bld) [Mass fraction] 5.2 % [facility] Healthcare Office Visiton 10-16-2024 Follow-up visit [id number] Nithin Humphreys 1970 F Date Provider Department Center 10/16/2024 Pranay-TK [facility] Family History Problem Relation Age of Onset Cancer Mother Heart attack Father Family Status - Relation Status Age at Mother Father Level of Service:66920 [place] OFFICE/OUTPATIENT ESTABLISHED MOD MDM 30 MIN Normal [facility] ALL CBC WITH AUTO DIFFon BASOPHILS ABSOLUTE AUTO 0.1 [facility] Basophils/100 WBC (Bld) 1.1 % 0.2 - 2.0 % [facility] Eosinophils/100 WBC (Bld) 3.1 % 0.9 - 7.0 % [facility] Erythrocyte distribution width (RBC) [Ratio] 12.9 % 11.0 - 15.0 % [facility] Hematocrit (Bld) [Volume fraction] 33.2 % Low 36.0 - 48.0 % [facility] Hemoglobin (Bld) [Mass/Vol] 11.1 g/dL Low 12.0 - 16.0 g/dL [facility] IMMATURE GRANULOCYTES ABS AUTO 0.01 [facility] Immature granulocytes/100 WBC (Bld) 0.2 % 0.0 - 0.5 % [facility] Interpretation and review of laboratory results Abnormal [facility] LYMPHOCYTES ABSOLUTE AUTO 1.7 [facility] Lymphocytes/100 WBC (Bld) 38.2 % 20.5 - 60.0 % [facility] MCH (RBC) [Entitic mass] 30.1 pg 26.7 - 34.0 pg [facility] MCHC (RBC) [Mass/Vol] 33.4 g/dL 29.9 - 35.2 g/dL [facility] MCV (RBC) [Entitic vol] 90 fL 81.0 - 99.0 fL [facility] MONOCYTES ABSOLUTE AUTO 0.3 [facility] Monocytes/100 WBC (Bld) 7 % 1.7 - 12.0 % [facility] NEUTROPHILS ABSOLUTE AUTO 2.2 [facility] Neutrophils/100 WBC (Bld) 50.4 % 43.0 - 75.0 % [facility] Platelet mean volume (Bld) [Entitic vol] 11.2 fL 9.5 - 13.5 fL [facility] TBH EO # 0.1 [facility]H PLT 234 [facility] TB RBC 3.69 Low [facility] TBH WBC 4.5 [facility] ECG 12-LEADon 10-07-[address] [address] Electrocardiograph Report Signed Patient: SHERLY HUMPHREYS MR#: [id number] : 1970 Acct:[id number] Age/Sex: 53 / F ADM Date: 10/07/24 Loc: PST Attending Dr: Marcella Conway M.D. Ordering Physician: Marcella Conway M.D. 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 Measurements Intervals [place] Rate: 51 P: 30 FL: 182 QRS: -16 QRSD: 105 T: 0 QT: 407 QTc: 378 Interpretive Statements SINUS BRADYCARDIA LOW QRS VOLTAGE IN PRECORDIAL LEADS [QRS DEFLECTION < 1.0 mV IN CHEST LEADS] POSSIBLE ANTERIOR MYOCARDIAL INFARCTION [30 ms Q WAVE IN V3/V4, OR R < 0.2 mV IN V4], PROBABLY OLD INFERIOR MYOCARDIAL INFARCTION [40+ ms Q WAVE AND/OR ST/T ABNORMALITY IN II/aVF], PROBABLY OLD Compared to ECG 04/03/2023 21:59:59 Myocardial infarct finding now present Electronically Signed On 10-07-2024 21:53:51 EDT by LITO EDEN M.D. Dictated By: LITO EDEN Signed By: 10/07/24 [id number] DD/ 1001 TD/TT: Gravel Screener: [facility] Radiology, Radiologi MD erasmo - 10/07/2024 [place] [address] Electrocardiograph Report Signed Patient: SHERLY HUMPHREYS MR#: [id number] : 1970 Acct:[id number] Age/Sex: 53 / F ADM Date: 10/07/24 Loc: PST Attending Dr: Marcella Conway M.D. Ordering Physician: Marcella Conway M.D. 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 Measurements Intervals [place] Rate: 51 P: 30 FL: 182 QRS: -16 QRSD: 105 T: 0 QT: 407 QTc: 378 Interpretive Statements SINUS BRADYCARDIA LOW QRS VOLTAGE IN PRECORDIAL LEADS [QRS DEFLECTION < 1.0 mV IN CHEST LEADS] POSSIBLE ANTERIOR MYOCARDIAL INFARCTION [30 ms Q WAVE IN V3/V4, OR R < 0.2 mV IN V4], PROBABLY OLD INFERIOR MYOCARDIAL INFARCTION [40+ ms Q WAVE AND/OR ST/T ABNORMALITY IN II/aVF], PROBABLY OLD Compared to ECG 04/03/2023 21:59:59 Myocardial infarct finding now present Electronically Signed On 10-07-2024 21:53:51 EDT by LITO EDEN M.D. Dictated By: LITO EDEN Signed By: 10/07/24 6117 DD/ 1001 TD/TT: Gravel Screener: [facility] Radiology Study observation (narrative) [facility] ECG 12-LEADOrdered By: Radio logist Radiology on 10-07-2024 [facility] Yingying Licai Work Phone: XR CHEST 2Von 10-07-2024 [place] [address] XRay Report Signed Patient: SHERLY HUMPHREYS MR#: [id number] : 1970 Acct:[id number] Age/Sex: 53 / F ADM Date: 10/07/24 Loc: PST Attending Dr: Marcella Conway M.D. Ordering Physician: Marcella Conway M.D. Date of Service: 10/07/24 Procedure(s): XR chest 2V Accession Number(s): [id number] cc: Janene Lew SHAREPOINT ADMIN; Marcella Conway M.D. The [address] [address] Patient Name: SHERLY HUMPHREYS MRN: [facility]:[id number] date: 1970 Sex: F Assigned Patient Location: [facility] Current Patient Location: [facility] Accession/Order Number: [id number] Exam Date: 10/07/2024 12:58 Report Date: 10/07/2024 12:59 At the request of: MARCELLA CONWAY MD Procedure: XR chest 2V Chest 2 views CLINICAL HISTORY: Pre Op COMPARISON: Chest 07/05/2024 FINDINGS: Heart normal in size. Lungs are clear. No free air. XR/XR chest 2V IMPRESSION: NO ACUTE CARDIOPULMONARY ABNORMALITY. Impression dictated by: Kip Mon Jr., D.OGerardo 10/07/2024 12:59 PM Dictation Location: [place] [address] Electronically authenticated by: [id number] Y Date: 10/07/2024 12:59 Dictated By: Kip Mon M.D. Signed By: 10/07/24 1302 DD/ 1259 TD/TT: Gravel Screener: [facility] RadiologyGhadaoglawrence zimmerman MD - 10/07/2024 [place] [address] XRay Report Signed Patient: SHERLY HUMPHREYS MR#: [id number] : 1970 Acct:[id number] Age/Sex: 53 / F ADM Date: 10/07/24 Loc: PST Attending Dr: Marcella Conway M.D. Ordering Physician: Marcella Conway M.D. Date of Service: 10/07/24 Procedure(s): XR chest 2V Accession Number(s): [id number] cc: Janene Lew NP; Marcella Conway M.D. The [address] [address] Patient Name: SHERLY HUMPHREYS MRN: [facility]:[id number] date: 1970 Sex: F Assigned Patient Location: [facility] Current Patient Location: [facility] Accession/Order Number: [id number] Exam Date: 10/07/2024 12:58 Report Date: 10/07/2024 12:59 At the request of: MARCELLA CONWAY MD Procedure: XR chest 2V Chest 2 views CLINICAL HISTORY: Pre Op COMPARISON: Chest 07/05/2024 FINDINGS: Heart normal in size. Lungs are clear. No free air. XR/XR chest 2V IMPRESSION: NO ACUTE CARDIOPULMONARY ABNORMALITY. Impression dictated by: Kip Mon Jr., D.O. 10/07/2024 12:59 PM Dictation Location: [place] [address] Electronically authenticated by: [id number] Y Date: 10/07/2024 12:59 Dictated By: Kip Mon M.D. Signed By: 10/07/24 1302 DD/ 1259 TD/TT: Gravel Screener: [facility] Radiology Study observation (narrative) [facility] XR CHEST 2VOrdered By: [facility] on 10-07-2024 [facility] Work Phone: ALL CBC WITH AUTO DIFFon BASOPHILS ABSOLUTE AUTO 0.1 [facility] Basophils/100 WBC (Bld) 0.8 % 0.2 - 2.0 % [facility] Eosinophils/100 WBC (Bld) 3.2 % 0.9 - 7.0 % [facility] Erythrocyte distribution width (RBC) [Ratio] 13 % 11.0 - 15.0 % [facility] Hematocrit (Bld) [Volume fraction] 33.6 % Low 36.0 - 48.0 % [facility] Hemoglobin (Bld) [Mass/Vol] 10.9 g/dL Low 12.0 - 16.0 g/dL [facility] IMMATURE GRANULOCYTES ABS AUTO 0.01 [facility] Immature granulocytes/100 WBC (Bld) 0.2 % 0.0 - 0.5 % [facility] Interpretation and review of laboratory results Abnormal [facility] LYMPHOCYTES ABSOLUTE AUTO 2.8 [facility] Lymphocytes/100 WBC (Bld) 46.4 % 20.5 - 60.0 % [facility] MCH (RBC) [Entitic mass] 30.2 pg 26.7 - 34.0 pg [facility] MCHC (RBC) [Mass/Vol] 32.4 g/dL 29.9 - 35.2 g/dL [facility] MCV (RBC) [Entitic vol] 93.1 fL 81.0 - 99.0 fL [facility] MONOCYTES ABSOLUTE AUTO 0.4 [facility] Monocytes/100 WBC (Bld) 6.6 % 1.7 - 12.0 % [facility] NEUTROPHILS ABSOLUTE AUTO 2.5 [facility] Neutrophils/100 WBC (Bld) 42.8 % Low 43.0 - 75.0 % [facility] Platelet mean volume (Bld) [Entitic vol] 10.8 fL 9.5 - 13.5 fL [facility] TBH EO # 0.2 [facility] TB PLT 256 [facility] TB RBC 3.61 Low [facility] WBC 5.9 [facility] XR Hip - right 3 [place] [address] XRay Report Signed Patient: SHERLY HUMPHREYS MR#: [id number] : 1970 Acct:[id number] Age/Sex: 53 / F ADM Date: 08/28/24 Loc: RAD Attending Dr: Elizabeth Meneses NP Ordering Physician: Elizabeth Meneses NP Date of Service: 08/28/24 Procedure(s): XR hip RT min 2V Accession Number(s): [id number] cc: Janene Lew SHAREPOINT ADMIN; Elizabeth Meneses NP [place] [id number] Patient Name: SHERLY HUMPHREYS MRN: [facility]:[id number] date: 1970 Sex: F Assigned Patient Location: RAD Current Patient Location: RAD Accession/Order Number: [id number] Exam Date: 08/28/2024 10:29 Report Date: 08/28/2024 10:30 At the request of: ELIZABETH MENESES NP Procedure: XR hip RT min 2V XR hip RT min 2V 08/28/2024 8:47 AM SIGNS AND SYMPTOMS: Hip Pain PROTOCOL: Frontal and frog-leg views of the right hip COMPARISON: 12/18/2022 FINDINGS: The right hip joint space is preserved. There is no fracture or dislocation. Mild enthesophyte formation is redemonstrated along the greater trochanter. The visualized right hemipelvis is intact. XR/XR hip RT min 2V IMPRESSION: No acute bony injury. Mild enthesophyte formation is redemonstrated along the greater trochanter of the right hip. Impression dictated by: Franco Lubin M.D. 08/28/2024 10:30 AM Dictation Location: [place] [address] Electronically authenticated by: [id number] Y Date: 08/28/2024 10:30 Dictated By: Franco Lubin M.D. Signed By: 08/28/24 1032 DD/ 1030 TD/TT: Gravel Screener: [facility] Radiology Radiologlawrence zimmerman MD - 08/28/2024 [place] [address] XRay Report Signed Patient: SHERLY HUMPHREYS MR#: [id number] : 1970 Acct:[id number] Age/Sex: 53 / F ADM Date: 08/28/24 Loc: RAD Attending Dr: Elizabeth Meneses NP Ordering Physician: Elizabeth Meneses NP Date of Service: 08/28/24 Procedure(s): XR hip RT min 2V Accession Number(s): [id number] cc: Janene Lew SHAREPOINT ADMIN; Elizabeth Meneses NP The [place] [id number] Patient Name: SHERLY HUMPHREYS MRN: [facility]:[id number] date: 1970 Sex: F Assigned Patient Location: [facility] Current Patient Location: RAD Accession/Order Number: [id number] Exam Date: 08/28/2024 10:29 Report Date: 08/28/2024 10:30 At the request of: ELIZABETH MENESES NP Procedure: XR hip RT min 2V XR hip RT min 2V 08/28/2024 8:47 AM SIGNS AND SYMPTOMS: Hip Pain PROTOCOL: Frontal and frog-leg views of the right hip COMPARISON: 12/18/2022 FINDINGS: The right hip joint space is preserved. There is no fracture or dislocation. Mild enthesophyte formation is redemonstrated along the greater trochanter. The visualized right hemipelvis is intact. XR/XR hip RT min 2V IMPRESSION: No acute bony injury. Mild enthesophyte formation is redemonstrated along the greater trochanter of the right hip. Impression dictated by: Franco Lubin M.D. 08/28/2024 10:30 AM Dictation Location: [place] [address] Electronically authenticated by: [id number] Y Date: 08/28/2024 10:30 Dictated By: Franco Lubin M.D. Signed By: 08/28/24 1032 DD/ 1030 TD/TT: Gravel Screener: [facility] Radiology Study observation (narrative) [facility] XR Hip - right 3 ViewsOrdere d By: Radiologist Radiology on 08-28-2024 [facility] Work Phone: HbA1c (Bld) [Mass fraction]o n 06-16-2024 Interpretation and review of laboratory results Normal [facility] - Hematology and Cell countson 06-16-2024 HbA1c (Bld) [Mass fraction] 5.5 % [facility] Ferritinon 03-11-2024 Ferritin [Mass/Vol] 135.5 ng/mL Normal 11.0-306.8 [facility] Comment on above: Performed By: #### F E and TIBC, URIC, URMACRERAT, UA, MG, PTH, RENAL, CBCNO, GEENA, [id number], [id number], PROCRERAT #### [place] [id number] [facility] Hemogram CBC Without Diffon 03-11-2024 Erythrocyte distribution width (RBC) [Ratio] 14.6 % Normal 11.9-15.3 [facility] Comment on above: Performed By: #### F E and TIBC, URIC, URMACRERAT, UA, MG, PTH, RENAL, CBCNO, GEENA, [id number], [id number], PROCRERAT #### [facility] [address] [place] [address] Hematocrit (Bld) [Volume fraction] 34.9 % Normal 34.0-46.4 [facility] Comment on above: Performed By: #### F E and TIBC, URIC, URMACRERAT, UA, MG, PTH, RENAL, CBCNO, GEENA, [id number], [id number], PROCRERAT #### [address] Hemoglobin (Bld) [Mass/Vol] 11.4 g/dL Low 11.8-15.4 [facility] Comment on above: Performed By: #### F E and TIBC, URIC, URMACRERAT, UA, MG, PTH, RENAL, CBCNO, GEENA, [id number], [id number], PROCRERAT #### [address] MCH (RBC) [Entitic mass] 29.7 pg Normal 24.7-34.3 [facility] Comment on above: Performed By: #### F E and TIBC, URIC, URMACRERAT, UA, MG, PTH, RENAL, CBCNO, GEENA, [id number], [id number], PROCRERAT #### [address] MCV (RBC) [Entitic vol] 91.3 fL Normal 80-100 [facility] Comment on above: Performed By: #### F E and TIBC, URIC, URMACRERAT, UA, MG, PTH, RENAL, CBCNO, GEENA, [id number], [id number], PROCRERAT #### [address] Mean Corpuscular HGB Conc 32.6 g/dL Normal 32.0-35.0 [facility] Comment on above: Performed By: #### F E and TIBC, URIC, URMACRERAT, UA, MG, PTH, RENAL, CBCNO, GEENA, [id number], [id number], PROCRERAT #### [address] [address] [place] Platelet mean volume (Bld) [Entitic vol] 8.7 fL Normal 6.3-10.7 [facility] Comment on above: Result Comment: PERF ORMED BY: [place] [address] PATHOLOGIST [employer] TECHNICIAN SHANIQUE CALDERON M.D. Performed By: #### F E and TIBC, URIC, URMACRERAT, UA, MG, PTH, RENAL, CBCNO, GEENA, [id number], [id number], PROCRERAT #### [address] Platelets (Bld) [#/Vol] 328 10*3/uL Normal 150-450 [facility] Comment on above: Performed By: #### F E and TIBC, URIC, URMACRERAT, UA, MG, PTH, RENAL, CBCNO, GEENA, [id number], [id number], PROCRERAT #### [address] RBC (Bld) [#/Vol] 3.83 10*6/uL Normal 3.60-5.00 [facility] Comment on above: Performed By: #### F E and TIBC, URIC, URMACRERAT, UA, MG, PTH, RENAL, CBCNO, GEENA, [id number], [id number], PROCRERAT #### [address] WBC (Bld) [#/Vol] 5.1 10*3/uL Normal 3.8-11.6 [facility] Comment on above: Performed By: #### F E and TIBC, URIC, URMACRERAT, UA, MG, PTH, RENAL, CBCNO, GEENA, [id number], [id number], PROCRERAT #### [address] Iron and TIBC Profileon 11-2 6-2023 % Iron Saturation 30.1 % Normal 20-50 [facility] Comment on above: Performed By: #### F E and TIBC, URIC, URMACRERAT, UA, MG, PTH, RENAL, CBCNO, GEENA, [id number], [id number], PROCRERAT #### [facility] [address] Iron [Mass/Vol] 118 ug/dL Normal 50-212 [facility] Comment on above: Performed By: #### F E and TIBC, URIC, URMACRERAT, UA, MG, PTH, RENAL, CBCNO, GEENA, [id number], [id number], PROCRERAT #### [facility] [address] Total Iron Binding Capacity 392 ug/dL Normal 255-450 [facility] Comment on above: Performed By: #### F E and TIBC, URIC, URMACRERAT, UA, MG, PTH, RENAL, CBCNO, GEENA, [id number], [id number], PROCRERAT #### [facility] [address] Transferrin [Mass/Vol] 280 mg/dL Normal 203-362 Th e [facility] Comment on above: Performed By: #### F E and TIBC, URIC, URMACRERAT, UA, MG, PTH, RENAL, CBCNO, GEENA, [id number], [id number], PROCRERAT #### [facility] [address] Magnesiumon 03-11-2024 Magnesium [Mass/Vol] 1.9 mg/dL Normal 1.9-2.7 [facility] Comment on above: Performed By: #### F E and TIBC, URIC, URMACRERAT, UA, MG, PTH, RENAL, CBCNO, GEENA, [id number], [id number], PROCRERAT #### [address] MicroAlb Creat Ratio,Uon Albumin DL <= 20 mg/L (U) [Mass/Vol] mg/dL Normal 0.0-1.8 [facility] Comment on above: Performed By: #### F E and TIBC, URIC, URMACRERAT, UA, MG, PTH, RENAL, CBCNO, GEENA, [id number], [id number], PROCRERAT #### [address] Creatinine, Urine (Random) 57.00 mg/dL Normal [facility] Comment on above: Result Comment: No r eference range established Performed By: #### F E and TIBC, URIC, URMACRERAT, UA, MG, PTH, RENAL, CBCNO, GEENA, [id number], [id number], PROCRERAT #### [address] Microalbumin/Creatinin e Ratio Not performed Normal 0.0-30.0 [facility] Comment on above: Performed By: #### F E and TIBC, URIC, URMACRERAT, UA, MG, PTH, RENAL, CBCNO, GEENA, [id number], [id number], PROCRERAT #### [address] Parathyroid Hormone Intacton 03-11-2024 Parathyroid Hormone Intact 30.6 pg/mL Normal 12-88 [facility] Comment on above: Result Comment: PERF ORMED BY: [place] [address] PATHOLOGIST [employer] TECHNICIAN SHANIQUE CALDERON M.D. Performed By: #### F E and TIBC, URIC, URMACRERAT, UA, MG, PTH, RENAL, CBCNO, GEENA, [id number], [id number], PROCRERAT #### [address] Protein Creat Ratio Ur Rando mon 03-11-2024 Protein (U) [Mass/Vol] 5 mg/dL Normal 0-9 Th e [facility] Comment on above: Performed By: #### F E and TIBC, URIC, URMACRERAT, UA, MG, PTH, RENAL, CBCNO, GEENA, [id number], [id number], PROCRERAT #### [address] Urine Protein/Creatinine Ratio 88 mg/g{Cre} Normal 0-200 [facility] Comment on above: Result Comment: PERF ORMED BY: [place] [address] PATHOLOGIST [employer] TECHNICIAN SHANIQUE CALDERON M.D. Performed By: #### F E and TIBC, URIC, URMACRERAT, UA, MG, PTH, RENAL, CBCNO, GEENA, [id number], [id number], PROCRERAT #### [address] Renal Function Panelon 03-11 Albumin [Mass/Vol] 3.9 g/dL Normal 3.5-5.7 [facility] Comment on above: Performed By: #### F E and TIBC, URIC, URMACRERAT, UA, MG, PTH, RENAL, CBCNO, GEENA, [id number], [id number], PROCRERAT #### [address] Anion gap [Moles/Vol] 12.5 mmol/L Normal 6.0-15.0 Th e [facility] Comment on above: Performed By: #### F E and TIBC, URIC, URMACRERAT, UA, MG, PTH, RENAL, CBCNO, GEENA, [id number], [id number], PROCRERAT #### [address] Calcium [Mass/Vol] 9.4 mg/dL Normal 8.6-10.3 [facility] Comment on above: Performed By: #### F E and TIBC, URIC, URMACRERAT, UA, MG, PTH, RENAL, CBCNO, GEENA, [id number], [id number], PROCRERAT #### [address] Chloride [Moles/Vol] 110 mmol/L High 98-107 [facility] Comment on above: Performed By: #### F E and TIBC, URIC, URMACRERAT, UA, MG, PTH, RENAL, CBCNO, GEENA, [id number], [id number], PROCRERAT #### [facility] [address] CO2 [Moles/Vol] 25.0 mmol/L Normal 21.0-31.0 [facility] Comment on above: Performed By: #### F E and TIBC, URIC, URMACRERAT, UA, MG, PTH, RENAL, CBCNO, GEENA, [id number], [id number], PROCRERAT #### [facility] [address] Creatinine [Mass/Vol] 1.50 mg/dL High 0.60-1.20 [facility] Comment on above: Performed By: #### F E and TIBC, URIC, URMACRERAT, UA, MG, PTH, RENAL, CBCNO, GEENA, [id number], [id number], PROCRERAT #### [facility] [address] Estimated GFR 41.412 mL/Min Normal [facility] Comment on above: Performed By: #### F E and TIBC, URIC, URMACRERAT, UA, MG, PTH, RENAL, CBCNO, GEENA, [id number], [id number], PROCRERAT #### [facility] [address] Glucose [Mass/Vol] 88 mg/dL Normal 70-100 [facility] Comment on above: Result Comment: [place] Glucose Reference Range is dependent on time and content of last meal. Glucose of more than 200 mg/dL in a nonstressed, ambulatory subject supports the diagnosis of Diabetes Mellitus. ADA recommended reference range Performed By: #### F E and TIBC, URIC, URMACRERAT, UA, MG, PTH, RENAL, CBCNO, GEENA, [id number], [id number], PROCRERAT #### [place] [address] Phosphate [Mass/Vol] 2.7 mg/dL Normal 2.5-4.5 [facility] Comment on above: Performed By: #### F E and TIBC, URIC, URMACRERAT, UA, MG, PTH, RENAL, CBCNO, GEENA, [id number], [id number], PROCRERAT #### [address] Potassium [Moles/Vol] 4.5 mmol/L Normal 3.5-5.1 [facility] Comment on above: Performed By: #### F E and TIBC, URIC, URMACRERAT, UA, MG, PTH, RENAL, CBCNO, GEENA, [id number], [id number], PROCRERAT #### [address] Sodium [Moles/Vol] 143 mmol/L Normal 136-145 [facility] Comment on above: Performed By: #### F E and TIBC, URIC, URMACRERAT, UA, MG, PTH, RENAL, CBCNO, GEENA, [id number], [id number], PROCRERAT #### [address] Urea nitrogen [Mass/Vol] 18 mg/dL Normal 7-25 [facility] Comment on above: Performed By: #### F E and TIBC, URIC, URMACRERAT, UA, MG, PTH, RENAL, CBCNO, GEENA, [id number], [id number], PROCRERAT #### [address] Uric Acidon 03-11-2024 Urate [Mass/Vol] 6.3 mg/dL Normal 2.3-6.6 [facility] Comment on above: Performed By: #### F E and TIBC, URIC, URMACRERAT, UA, MG, PTH, RENAL, CBCNO, GEENA, [id number], [id number], PROCRERAT #### [place] [address] [place] Urinalysison 03-11-2024 Appearance (U) Clear Normal Clear [facility] Comment on above: Order Comment: Name Collection Type:: Clean-Voided Midstream Performed By: #### F E and TIBC, URIC, URMACRERAT, UA, MG, PTH, RENAL, CBCNO, GEENA, [id number], [id number], PROCRERAT #### [facility] [address] Bilirubin,Urine Negative Normal Negative [facility] Comment on above: Order Comment: Name Collection Type:: Clean-Voided Midstream Performed By: #### F E and TIBC, URIC, URMACRERAT, UA, MG, PTH, RENAL, CBCNO, GEENA, [id number], [id number], PROCRERAT #### [address] Color (U) Light-Yellow Normal Yellow [facility] Comment on above: Order Comment: Name Collection Type:: Clean-Voided Midstream Performed By: #### F E and TIBC, URIC, URMACRERAT, UA, MG, PTH, RENAL, CBCNO, GEENA, [id number], [id number], PROCRERAT #### [address] Glucose Ql (U) Normal Normal Normal [facility] Comment on above: Order Comment: Name Collection Type:: Clean-Voided Midstream Performed By: #### F E and TIBC, URIC, URMACRERAT, UA, MG, PTH, RENAL, CBCNO, GEENA, [id number], [id number], PROCRERAT #### [address] Ketones Ql (U) Negative Normal Negative [facility] Comment on above: Order Comment: Name Collection Type:: Clean-Voided Midstream Performed By: #### F E and TIBC, URIC, URMACRERAT, UA, MG, PTH, RENAL, CBCNO, GEENA, [id number], [id number], PROCRERAT #### [facility] [address] Leukocyte esterase Test strip Ql (U) Negative Normal Negative [facility] Comment on above: Order Comment: Name Collection Type:: Clean-Voided Midstream Performed By: #### F E and TIBC, URIC, URMACRERAT, UA, MG, PTH, RENAL, CBCNO, GEENA, [id number], [id number], PROCRERAT #### [address] Nitrite,Urine Negative Normal Negative [facility] Comment on above: Order Comment: Name Collection Type:: Clean-Voided Midstream Performed By: #### F E and TIBC, URIC, URMACRERAT, UA, MG, PTH, RENAL, CBCNO, GEENA, [id number], [id number], PROCRERAT #### [address] Occult Blood,Urine Negative Normal Negative [facility] Comment on above: Order Comment: Name Collection Type:: Clean-Voided Midstream Result Comment: PERF ORMED BY: [place] [address] PATHOLOGIST [employer] TECHNICIAN SHANIQUE CALDERON M.D. Performed By: #### F E and TIBC, URIC, URMACRERAT, UA, MG, PTH, RENAL, CBCNO, GEENA, [id number], [id number], PROCRERAT #### [address] pH (U) 5.5 [pH] Normal 5.0-9.0 [facility] Comment on above: Order Comment: Name Collection Type:: Clean-Voided Midstream Performed By: #### F E and TIBC, URIC, URMACRERAT, UA, MG, PTH, RENAL, CBCNO, GEENA, [id number], [id number], PROCRERAT #### [address] Protein,Urine Negative Normal Negative [facility] Comment on above: Order Comment: Name Collection Type:: Clean-Voided Midstream Performed By: #### F E and TIBC, URIC, URMACRERAT, UA, MG, PTH, RENAL, CBCNO, GEENA, [id number], [id number], PROCRERAT #### [address] Specificy [place],Urine 1.011 Normal 1.001-1.030 [facility] Comment on above: Order Comment: Name Collection Type:: Clean-Voided Midstream Performed By: #### F E and TIBC, URIC, URMACRERAT, UA, MG, PTH, RENAL, CBCNO, GEENA, [id number], [id number], PROCRERAT #### [address] Urobilinogen,Urine Normal Normal Normal [facility] Comment on above: Order Comment: Name Collection Type:: Clean-Voided Midstream Performed By: #### F E and TIBC, URIC, URMACRERAT, UA, MG, PTH, RENAL, CBCNO, GEENA, [id number], [id number], PROCRERAT #### [address] Vit. B12/Folate Profileon Cobalamin (Vitamin B12) [Mass/Vol] 4548 pg/mL High 180-914 [facility] Comment on above: Performed By: #### F E and TIBC, URIC, URMACRERAT, UA, MG, PTH, RENAL, CBCNO, GEENA, [id number], [id number], PROCRERAT #### [address] Folate 8.2 ng/mL Normal >5.9 [facility] Comment on above: Result Comment: Maria te reference range: >5.9 ng/ml The WHO technical consultation on folate and vitamin b12 deficiencies has determined that folate concentrations less than 4 ng/ml are considered deficient. Performed By: #### F E and TIBC, URIC, URMACRERAT, UA, MG, PTH, RENAL, CBCNO, GEENA, [id number], [id number], PROCRERAT #### [facility] [address] [id number] [facility] Vitamin D 25 Hydroxy Totalon 03-11-2024 Vitamin D 25 Hydroxy Total 25.0 ng/mL Low 30-100 [facility] Comment on above: Result Comment: AWAIS MIN D STATUS 25(OH)VITAMIN D RANGE (ng/mL) Deficient <20 Insufficient 20 to <30 Sufficient 30 to 100 Reference: Karen MF,Nicole NC, Ed LI, et al. Evaluation,treatment, and prevention of vitamin D deficiency; an Endocrine Society clinical practice guideline. JCEM. 2010; 96(7):1911-30. PERFORMED BY: [facility] [address] [place] [address] PATHOLOGIST [employer] TECHNICIAN SHANIQUE CALDERON M.D. Performed By: #### F E and TIBC, URIC, URMACRERAT, UA, MG, PTH, RENAL, CBCNO, GEENA, [id number], [id number], PROCRERAT #### [facility] [address] [id number] [facility] HbA1c (Bld) [Mass fraction]o n 02-19-2024 Interpretation and review of laboratory results Normal [facility] - Hematology and Cell countson 02-19-2024 HbA1c (Bld) [Mass fraction] 5.1 % [facility] ALL CBC WITH AUTO DIFFon BASOPHILS ABSOLUTE AUTO 0.1 [facility] Basophils/100 WBC (Bld) 0.6 % 0.2 - 2.0 % [facility] Eosinophils/100 WBC (Bld) 1.4 % 0.9 - 7.0 % [facility] Erythrocyte distribution width (RBC) [Ratio] 14.1 % 11.0 - 15.0 % [facility] Hematocrit (Bld) [Volume fraction] 40.0 % 36.0 - 48.0 % [facility] Hemoglobin (Bld) [Mass/Vol] 12.4 g/dL 12.0 - 16.0 g/dL [facility] IMMATURE GRANULOCYTES ABS AUTO 0.03 [facility] Immature granulocytes/100 WBC (Bld) 0.4 % 0.0 - 0.5 % [facility] LYMPHOCYTES ABSOLUTE AUTO 1.9 [facility] Lymphocytes/100 WBC (Bld) 24.7 % 20.5 - 60.0 % [facility] MCH (RBC) [Entitic mass] 28.4 pg 26.7 - 34.0 pg [facility] MCHC (RBC) [Mass/Vol] 31.0 g/dL 29.9 - 35.2 g/dL [facility] MCV (RBC) [Entitic vol] 91.5 fL 81.0 - 99.0 fL [facility] MONOCYTES ABSOLUTE AUTO 0.4 [facility] Monocytes/100 WBC (Bld) 4.6 % 1.7 - 12.0 % [facility] NEUTROPHILS ABSOLUTE AUTO 5.3 [facility] Neutrophils/100 WBC (Bld) 68.3 % 43.0 - 75.0 % [facility] Platelet mean volume (Bld) [Entitic vol] 11.1 fL 9.5 - 13.5 fL [facility] TBH EO # 0.1 [facility]H PLT [address] [facility] RBC 4.37 [facility] WBC 7.8 [facility] Office Visiton 12-18-2023 Follow-up visit [id number] Nithin Humphreys 1970 F Date Provider Department Center 12/18/2023 Pranay-TK [facility] No family history on file Level of Service:44720 [place] OFFICE/OUTPATIENT ESTABLISHED LOW MDM 20 MIN Normal [facility] Glucose Glucometer (BldC) [M ass/Vol]Ordered By: Ban Clemente on 11-01-2023 Glucose [Mass/Vol] 107 mg/dL [facility] Comment on above: Random Glucose Refer ence Range is dependent on time and content of last meal. Glucose of more than 200 mg/dL in a nonstressed, ambulatory subject supports the diagnosis of Diabetes Mellitus. No Panel InformationOrdered By: Ban Clemente on 11-01-2023 Bedside Glucose Comment Glu2: cleaned meter [facility] Calcium [Mass/volume] in Ser um or PlasmaOrdered By: Fernando Rosenberg on 10-11-2023 Calcium [Mass/Vol] 9.7 mg/dL 8.6-10.[address] [facility] Carbon dioxide, total [Moles /volume] in Serum or PlasmaOrdered By: Fernando Rosenberg on 10-11-2023 CO2 [Moles/Vol] 26.7 mmol/L 21.0-31.0 [facility] Chloride [Moles/volume] in S brunilda or PlasmaOrdered By: Fernando Rosenberg on 10-11-2023 Chloride [Moles/Vol] 107 mmol/L 98-107 [facility] Creatinine [Mass/volume] in Serum or PlasmaOrdered By: Fernando Rosenberg on 10-11-2023 Creatinine [Mass/Vol] 2.04 mg/dL High 0.60-1.20 [facility] Glucose [Mass/volume] in Ser um or PlasmaOrdered By: Fernando Rosenberg on 10-11-2023 Glucose [Mass/Vol] 96 mg/dL 70-[address] [facility] Comment on above: ADA recommended refe rence rangeRandom Glucose Reference Range is dependent on time and content of last meal. Glucose of more than 200 mg/dL in a nonstressed, ambulatory subject supports the diagnosis of Diabetes Mellitus. No Panel InformationOrdered By: Fernando Rosenberg on 10-11-2023 Estimated GFR (CKD-EPI) 28.812 mL/Min [facility] Creatinine Clearance (Chem N/A [facility] Potassium [Moles/volume] in Serum or PlasmaOrdered By: Fernando Rosenberg on 10-11-2023 Potassium [Moles/Vol] 5.2 mmol/L High 3.5-5.1 [facility] Serum or plasma anion gap de terminationOrdered By: Fernando Rosenberg on 10-11-2023 Anion gap [Moles/Vol] 11.5 mmol/L 6.0-15.0 [facility] Sodium [Moles/volume] in Ser um or PlasmaOrdered By: Fernando Rosenberg on 10-11-2023 Sodium [Moles/Vol] 140 mmol/L 136-[address] [facility] Urea nitrogen [Mass/volume] in Serum or PlasmaOrdered By: Fernando Rosenberg on 10-11-2023 Urea nitrogen [Mass/Vol] 41 mg/dL High 7-25 [facility] Basophils Auto (Bld) [#/Vol] Ordered By: Fernando Rosenberg on 10-02-2023 Basophils (Bld) [#/Vol] 0.0 10*3/uL 0.0-0.2 [facility] Basophils/100 WBC Auto (Bld) Ordered By: Fernando Rosenberg on 10-02-2023 Basophils/100 WBC (Bld) 0.8 % . [facility] Calcium [Mass/volume] in Ser um or PlasmaOrdered By: Fernando Rosenberg on 10-02-2023 Calcium [Mass/Vol] 9.0 mg/dL 8.6-10.[address] [facility] Carbon dioxide, total [Moles /volume] in Serum or PlasmaOrdered By: Fernando Rosenberg on 10-02-2023 CO2 [Moles/Vol] 26.9 mmol/L 21.0-31.0 [facility] Chloride [Moles/volume] in S brunilda or PlasmaOrdered By: Fernando Rosenberg on 10-02-2023 Chloride [Moles/Vol] 110 mmol/L High 98-107 [facility] Creatinine [Mass/volume] in Serum or PlasmaOrdered By: Fernando Rosenberg on 10-02-2023 Creatinine [Mass/Vol] 1.52 mg/dL High 0.60-1.20 [facility] Comment on above: Delta: 2.27 on 09/30-0758 Eosinophils Auto (Bld) [#/Vo l]Ordered By: Fernando Rosenberg on 10-02-2023 Eosinophils (Bld) [#/Vol] 0.2 10*3/uL 0.0-0.45 [facility] Eosinophils/100 WBC Auto (Bl d)Ordered By: Fernando Rosenberg on 10-02-2023 Eosinophils/100 WBC (Bld) 3.4 % . [facility] Erythrocyte distribution wid th Auto (RBC) [Ratio]Ordered By: Fernando Rosenberg on 10-02-2023 Erythrocyte distribution width (RBC) [Ratio] 14.3 % 11.9-15.3 [facility] Glucose Glucometer (BldC) [M ass/Vol]Ordered By: Fernando Rosenberg on 10-02-2023 Glucose [Mass/Vol] 93 mg/dL [facility] Comment on above: Random Glucose Refer ence Range is dependent on time and content of last meal. Glucose of more than 200 mg/dL in a nonstressed, ambulatory subject supports the diagnosis of Diabetes Mellitus. Glucose [Mass/volume] in Ser um or PlasmaOrdered By: Fernando Rosenberg on 10-02-2023 Glucose [Mass/Vol] 85 mg/dL 70-[address] [facility] Comment on above: ADA recommended refe rence rangeRandom Glucose Reference Range is dependent on time and content of last meal. Glucose of more than 200 mg/dL in a nonstressed, ambulatory subject supports the diagnosis of Diabetes Mellitus. Hematocrit Auto (Bld) [Volum e fraction]Ordered By: Fernando Rosenberg on 10-02-2023 Hematocrit (Bld) [Volume fraction] 31.5 % Low 34.0-46.4 [facility] Hemoglobin [Mass/volume] in BloodOrdered By: Fernando Rosenberg on 10-02-2023 Hemoglobin (Bld) [Mass/Vol] 10.4 g/dL Low 11.8-15.4 [facility] Leukocytes [#/volume] correc joaquin for nucleated erythrocytes in Blood by Automated counOrdered By: Fernando Rosenberg on 10-02-2023 WBC corrected for nucl RBC Auto (Bld) [#/Vol] 4.8 10*3/uL 3.8-11.6 [facility] Lymphocytes Auto (Bld) [#/Vo l]Ordered By: Fernando Rosenberg on 10-02-2023 Lymphocytes (Bld) [#/Vol] 2.1 10*3/uL 1.00-4.8 [facility] Lymphocytes/100 WBC Auto (Bl d)Ordered By: Fernando Rosenberg on 10-02-2023 Lymphocytes/100 WBC (Bld) 43.2 % . [facility] MCH Auto (RBC) [Entitic mass ]Ordered By: Fernando Rosenberg on 10-02-2023 MCH (RBC) [Entitic mass] 30.1 pg 24.7-34.3 [facility] MCHC Auto (RBC) [Mass/Vol]Or dered By: Fernando Rosenberg on 10-02-2023 MCHC (RBC) [Mass/Vol] 33.2 g/dL 32.0-35.0 [facility] MCV Auto (RBC) [Entitic vol] Ordered By: Fernadno Rosenberg on 10-02-2023 MCV (RBC) [Entitic vol] 90.7 fL 80-100 [facility] Monocytes Auto (Bld) [#/Vol] Ordered By: Fernando Rosenberg on 10-02-2023 Monocytes (Bld) [#/Vol] 0.3 10*3/uL 0.0-0.8 [facility] Monocytes/100 WBC Auto (Bld) Ordered By: Fernando Rosenberg on 10-02-2023 Monocytes/100 WBC (Bld) 6.4 % . [facility] Neutrophils Auto (Bld) [#/Vo l]Ordered By: Fernando Rosenberg on 10-02-2023 Neutrophils (Bld) [#/Vol] 2.2 10*3/uL 1.8-7.7 [facility] Neutrophils/100 WBC Auto (Bl d)Ordered By: Fernando Rosenberg on 10-02-2023 Neutrophils/100 WBC (Bld) 46.2 % . [facility] No Panel InformationOrdered By: Fernando Rosenberg on 10-02-2023 Estimated GFR (CKD-EPI) 41.013 mL/Min [facility] Creatinine Clearance (Chem 60.65 [facility] Nucleated erythrocytes [Pres ence] in Blood by Automated countOrdered By: Fernando Rosenberg on 10-02-2023 Nucleated RBC Auto Ql (Bld) 0.0 /100{WBC} 0-0.5 [facility] Platelet mean volume Auto (B ld) [Entitic vol]Ordered By: Fernando Rosenberg on 10-02-2023 Platelet mean volume (Bld) [Entitic vol] 9.2 fL 6.3-10.7 [facility] Platelets Auto (Bld) [#/Vol] Ordered By: Fernando Rosenberg on 10-02-2023 Platelets (Bld) [#/Vol] 230 10*3/uL 150-450 [facility] Potassium [Moles/volume] in Serum or PlasmaOrdered By: Fernando Rosenberg on 10-02-2023 Potassium [Moles/Vol] 4.5 mmol/L 3.5-5.1 [facility] RBC Auto (Bld) [#/Vol]Ordere d By: Fernando Rosenberg on 10-02-2023 RBC (Bld) [#/Vol] 3.47 10*6/uL Low 3.60-5.00 [facility] Serum or plasma anion gap de terminationOrdered By: Fernando Rosenberg on 10-02-2023 Anion gap [Moles/Vol] 9.6 mmol/L 6.0-15.0 [facility] Sodium [Moles/volume] in Ser um or PlasmaOrdered By: Fernando Rosenberg on 10-02-2023 Sodium [Moles/Vol] 142 mmol/L 136-[address] [facility] Urea nitrogen [Mass/volume] in Serum or PlasmaOrdered By: Fernando Rosenberg on 10-02-2023 Urea nitrogen [Mass/Vol] 34 mg/dL High 7-25 [facility] WBC Auto (Bld) [#/Vol]Ordere d By: Fernando Rosenberg on 10-02-2023 WBC (Bld) [#/Vol] 4.8 10*3/uL 3.8-11.[address] [facility] Activated partial thrombopla stin time (aPTT) in platelet poor plasma by coagulation aOrdered By: Alma Deng on 10-01-2023 aPTT Coag (PPP) [Time] 30.1 s 25.1-36.5 [facility] Comment on above: A hematocrit value g reater than 55% may lead to inaccurate results in coagulation testing. Patients having hematocrit values >55% require a special collection tube for coagulation studies. Please contact the laboratory at [phone] for redraw instructions. Alanine aminotransferase [En zymatic activity/volume] in Serum or PlasmaOrdered By: Alma Deng on 10-01-2023 ALT [Catalytic activity/Vol] 19 U/L 7-52 [facility] Albumin [Mass/volume] in Ser um or Plasma by Bromocresol green (BCG) dye binding methoOrdered By: Alma Deng on 10-01-2023 Albumin BCG dye [Mass/Vol] 3.9 g/dL 3.5-5.7 [facility] Alkaline phosphatase [Enzyma tic activity/volume] in Serum or PlasmaOrdered By: Alma Deng on 10-01-2023 ALP [Catalytic activity/Vol] 56 U/L 34-104 [facility] Aspartate aminotransferase [ Enzymatic activity/volume] in Serum or PlasmaOrdered By: Alma Deng on 10-01-2023 AST [Catalytic activity/Vol] 29 U/L 13-39 [facility] Bacteria [Presence] in Urine by AutomatedOrdered By: Alma Deng on 10-01-2023 Bacteria Auto Ql (U) None seen [HPF] None Seen [facility] Bilirubin Test strip Ql (U)O rdered By: Alma Deng on 10-01-2023 Bilirubin Ql (U) Negative Negative [facility] Bilirubin.total [Mass/volume ] in Serum or PlasmaOrdered By: Alma Deng on 10-01-2023 Bilirubin [Mass/Vol] 0.3 mg/dL 0.3-1.0 [facility] Color Auto (U)Ordered By: Christ Deng on 10-01-2023 Color (U) Colorless Yellow [facility] Creatinine [Mass/volume] in UrineOrdered By: Alma Deng on 10-01-2023 Creatinine (U) [Mass/Vol] 65.00 mg/dL [facility] Comment on above: No reference range e stablished Eosinophils detection in uri ne sediment by Nava stainOrdered By: Alma Deng on 10-01-2023 Eosinophils Nava stain Ql (Urine sed) 0 % 0-1 [facility] Epithelial cells.squamous [# /area] in Urine sediment by Automated countOrdered By: Alma Deng on 10-01-2023 Epithelial cells.squamous Auto (Urine sed) [#/Area] N/A [facility] Erythrocytes [#/area] in Uri ne sediment by Automated countOrdered By: Alma Deng on 10-01-2023 RBC Auto (Urine sed) [#/Area] None seen [HPF] 0-4 [facility] Globulin Calc (S) [Mass/Vol] Ordered By: Alma Deng on 10-01-2023 Globulin (S) [Mass/Vol] 2.2 g/dL [facility] Glucose [Mass/volume] in Uri ne by Test stripOrdered By: Alma Deng on 10-01-2023 Glucose Test strip (U) [Mass/Vol] Normal mg/dL Normal [facility] Hemoglobin Test strip Ql (U) Ordered By: Alma Deng on 10-01-2023 Hemoglobin Ql (U) Negative Negative [facility] Hyaline casts [#/area] in Ur ine sediment by Automated countOrdered By: Alma Deng on 10-01-2023 Hyaline casts Auto (Urine sed) [#/Area] 0-8 [LPF] 0-8 [facility] INR in Platelet poor plasma by Coagulation assayOrdered By: Alma Deng on 10-01-2023 INR Coag (PPP) [Relative time] 1.1 {INR} [facility] Comment on above: INR Therapeutic Rang [...] with mechanical heart valves: 3 - 4.5 Ketones Test strip Ql (U)Ord ered By: Alma Deng on 10-01-2023 Ketones Ql (U) Negative Negative [facility] Leukocyte esterase [Presence ] in Urine by Test stripOrdered By: Alma Deng on 10-01-2023 Leukocyte esterase Test strip Ql (U) 1+ High Negative [facility] Leukocytes [#/area] in Urine sediment by Automated countOrdered By: Alma Deng on 10-01-2023 WBC Auto (Urine sed) [#/Area] 3-4 [HPF] 0-4 [facility] Mucus [Presence] in Urine by AutomatedOrdered By: Alma Deng on 10-01-2023 Mucus Auto Ql (U) Rare [LPF] [facility] Nitrite Test strip Ql (U)Ord ered By: Alma Deng on 10-01-2023 Nitrite Ql (U) Negative Negative [facility] No Panel InformationOrdered By: Fernando Rosenberg on 10-01-2023 Bedside Glucose Comment Glu2: cleaned meter [facility] Protein Test strip (U) [Mass /Vol]Ordered By: Alma Deng on 10-01-2023 Protein (U) [Mass/Vol] Negative Negative [facility] Protein [Mass/volume] in Ser um or PlasmaOrdered By: Alma Deng on 10-01-2023 Protein [Mass/Vol] 6.1 g/dL Low 6.4-8.[address] [facility] Prothrombin time (PT)Ordered By: Alma Deng on 10-01-2023 PT Coag (PPP) [Time] 12.2 s 9.0-12.9 [facility] Comment on above: A hematocrit value g reater than 55% may lead to inaccurate results in coagulation testing. Patients having hematocrit values >55% require a special collection tube for coagulation studies. Please contact the laboratory at [phone] for redraw instructions. Serum or plasma albumin/glob ulin mass ratioOrdered By: Alma Deng on 10-01-2023 Albumin/Globulin [Mass ratio] 1.8 {ratio} [facility] Sodium [Moles/volume] in Uri neOrdered By: Alma Deng on 10-01-2023 Sodium (U) [Moles/Vol] 54.0 mmol/L [facility] Comment on above: No reference range e stablished Specific gravity Test strip (U) [Rel density]Ordered By: Mayratania Huyuche on 10-01-2023 Specific gravity (U) [Rel density] 1.009 1.001-1.030 [facility] Urine appearanceOrdered By: Mayratania Christibonnie on 10-01-2023 Appearance (U) Clear Clear [facility] Urobilinogen Test strip (U) [Mass/Vol]Ordered By: Mayratania Christibonnie on 10-01-2023 Urobilinogen (U) [Mass/Vol] Normal mg/dL Normal [facility] pH Test strip (U)Ordered By: Alma Huyuche on 10-01-2023 pH (U) 5.5 [pH] 5.0-9.0 [facility] Albumin [Mass/volume] in Ser um or Plasma by Bromocresol green (BCG) dye binding methoOrdered By: Halle Mac on 08-10-2023 Albumin BCG dye [Mass/Vol] 4.0 g/dL 3.5-5.7 [facility] Automated erythrocytes count in urine sediment (number/area)Ordered By: Halle Mac on 08-10-2023 RBC Auto (Urine sed) [#/Area] None seen [HPF] 0-4 [facility] Automated leukocytes count i n urine sediment (number/area)Ordered By: Halle Mac on 08-10-2023 WBC Auto (Urine sed) [#/Area] 3-4 [HPF] 0-4 [facility] Bilirubin Test strip Ql (U)O rdered By: Halle Mac on 08-10-2023 Bilirubin Ql (U) Negative Negative [facility] Calcium [Mass/volume] in Ser um or PlasmaOrdered By: Halle Mac on 08-10-2023 Calcium [Mass/Vol] 9.3 mg/dL 8.6-10.[address] [facility] Carbon dioxide, total [Moles /volume] in Serum or PlasmaOrdered By: Halle Mac on 08-10-2023 CO2 [Moles/Vol] 24.8 mmol/L 21.0-31.0 [facility] Chloride [Moles/volume] in S brunilda or PlasmaOrdered By: Halle Mac on 08-10-2023 Chloride [Moles/Vol] 110 mmol/L High 98-107 [facility] Color Auto (U)Ordered By: Donald Mac on 08-10-2023 Color (U) Yellow Yellow [facility] Creatinine [Mass/volume] in Serum or PlasmaOrdered By: Halle Mac on 08-10-2023 Creatinine [Mass/Vol] 1.59 mg/dL High 0.60-1.20 [facility] Creatinine [Mass/volume] in UrineOrdered By: Halle Mac on 08-10-2023 Creatinine (U) [Mass/Vol] 92.0 mg/dL [facility] Comment on above: No reference range e stablished Erythrocyte distribution wid th Auto (RBC) [Ratio]Ordered By: Halle Mac on 08-10-2023 Erythrocyte distribution width (RBC) [Ratio] 15.1 % 11.9-15.3 [facility] Ferritin [Mass/volume] in Se rum or PlasmaOrdered By: Halle Mac on 08-10-2023 Ferritin [Mass/Vol] 62.9 ng/mL 11.0-306.8 [facility] Folate [Mass/volume] in Seru m or PlasmaOrdered By: Halle Mac on 08-10-2023 Folate [Mass/Vol] 15.7 ng/mL >5.9 [facility] Comment on above: Folate reference ran ge: >5.9 ng/mlThe WHO technical consultation on folate and vitamin [id number] has determined that folate concentrations lessthan 4 ng/ml are considered deficient. Glucose [Mass/volume] in Ser um or PlasmaOrdered By: Halle Mac on 08-10-2023 Glucose [Mass/Vol] 94 mg/dL 70-[address] [facility] Comment on above: ADA recommended refe rence rangeRandom Glucose Reference Range is dependent on time and content of last meal. Glucose of more than 200 mg/dL in a nonstressed, ambulatory subject supports the diagnosis of Diabetes Mellitus. Hematocrit Auto (Bld) [Volum e fraction]Ordered By: Halle Mac on 08-10-2023 Hematocrit (Bld) [Volume fraction] 35.0 % 34.0-46.4 [facility] Hemoglobin [Mass/volume] in BloodOrdered By: Halle Mac on 08-10-2023 Hemoglobin (Bld) [Mass/Vol] 11.5 g/dL Low 11.8-15.4 [facility] Iron [Mass/volume] in Serum or PlasmaOrdered By: Halle Mac on 08-10-2023 Iron [Mass/Vol] 75 ug/dL 50-212 [facility] Iron binding capacity [Mass/ volume] in Serum or PlasmaOrdered By: Halle Mac on 08-10-2023 Iron binding capacity [Mass/Vol] 480 ug/dL High 255-450 [facility] Iron saturation [Mass Fracti on] in Serum or PlasmaOrdered By: Halle Mac on 08-10-2023 Iron saturation [Mass fraction] 15.6 % Low 20-50 [facility] Ketones Auto test strip (U) [Mass/Vol]Ordered By: Halle Mac on 08-10-2023 Ketones (U) [Mass/Vol] Negative Negative [facility] - UrinalysisOrder ed By: Halle Mac on 08-10-2023 Hyaline casts LM Ql (Urine sed) None seen [LPF] 0-8 [facility] Leukocytes [#/volume] correc joaquin for nucleated erythrocytes in Blood by Automated counOrdered By: Halle Mac on 08-10-2023 WBC corrected for nucl RBC Auto (Bld) [#/Vol] 4.0 10*3/uL 3.8-11.6 [facility] MCH Auto (RBC) [Entitic mass ]Ordered By: Halle Mac on 08-10-2023 MCH (RBC) [Entitic mass] 29.6 pg 24.7-34.3 [facility] MCHC Auto (RBC) [Mass/Vol]Or dered By: Halle Mac on 08-10-2023 MCHC (RBC) [Mass/Vol] 32.9 g/dL 32.0-35.0 [facility] MCV Auto (RBC) [Entitic vol] Ordered By: Halle Mac on 08-10-2023 MCV (RBC) [Entitic vol] 90.0 fL 80-100 [facility] Magnesium [Mass/volume] in S brunilda or PlasmaOrdered By: Halle Mac on 08-10-2023 Magnesium [Mass/Vol] 1.9 mg/dL 1.9-2.7 [facility] Nitrite Test strip Ql (U)Ord ered By: Halle Mac on 08-10-2023 Nitrite Ql (U) Negative Negative [facility] No Panel InformationOrdered By: Halle Mac on 08-10-2023 Estimated GFR (CKD-EPI) 38.856 mL/Min [facility] Creatinine Clearance (Chem N/A [facility] Parathyrin.intact [Mass/volu me] in Serum or PlasmaOrdered By: Halle Mac on 08-10-2023 Parathyrin.intact [Mass/Vol] 38.7 pg/mL 12-88 [facility] [facility] Phosphate [Mass/volume] in S brunilda or PlasmaOrdered By: Halle Mac on 08-10-2023 Phosphate [Mass/Vol] 3.7 mg/dL 2.5-4.5 [facility] Platelet mean volume Auto (B ld) [Entitic vol]Ordered By: Halle Mac on 08-10-2023 Platelet mean volume (Bld) [Entitic vol] 9.8 fL 6.3-10.7 [facility] Platelets Auto (Bld) [#/Vol] Ordered By: Halle Mac on 08-10-2023 Platelets (Bld) [#/Vol] 217 10*3/uL 150-450 [facility] Potassium [Moles/volume] in Serum or PlasmaOrdered By: Halle Mac on 08-10-2023 Potassium [Moles/Vol] 4.5 mmol/L 3.5-5.1 [facility] Protein Auto test strip (U) [Mass/Vol]Ordered By: Halle Mac on 08-10-2023 Protein (U) [Mass/Vol] Negative Negative [facility] Protein [Mass/volume] in Uri neOrdered By: Halle Mac on 08-10-2023 Protein (U) [Mass/Vol] mg/dL 0-9 [facility] RBC Auto (Bld) [#/Vol]Ordere d By: Halle Mac on 08-10-2023 RBC (Bld) [#/Vol] 3.89 10*6/uL 3.60-5.00 [facility] Serum or plasma anion gap de terminationOrdered By: Halle Mac on 08-10-2023 Anion gap [Moles/Vol] 11.7 mmol/L 6.0-15.0 [facility] Sodium [Moles/volume] in Ser um or PlasmaOrdered By: Halle Mac on 08-10-2023 Sodium [Moles/Vol] 142 mmol/L 136-[address] [facility] Specific gravity Auto test s trip (U) [Rel density]Ordered By: Halle Mac on 08-10-2023 Specific gravity (U) [Rel density] 1.015 1.001-1.030 [facility] Squamous epithelial cells de tection in urine sediment by light microscopyOrdered By: Halle Mac 08-10-2023 Epithelial cells.squamous LM Ql (Urine sed) None seen [HPF] 0-2 [facility] Transferrin [Mass/volume] in Serum or PlasmaOrdered By: Halle Mac on 08-10-2023 Transferrin [Mass/Vol] 343 mg/dL 203-362 [facility] Urate [Mass/volume] in Serum or PlasmaOrdered By: Halle Mac on 08-10-2023 Urate [Mass/Vol] 8.6 mg/dL High 2.3-6.6 [facility] Urea nitrogen [Mass/volume] in Serum or PlasmaOrdered By: Halle Mac on 08-10-2023 Urea nitrogen [Mass/Vol] 32 mg/dL High 7-25 [facility] Urine bacteria detection by automated methodOrdered By: Halle Mac on 08-10-2023 Bacteria Auto Ql (U) None seen None Seen [facility] Urine clarity by refractomet ry automatedOrdered By: Halle Mac on 08-10-2023 Clarity Refractometry automated (U) Clear Clear [facility] Urine glucose measurement by automated test strip (mass/volume)Ordered By: Halle Mac on 08-10-2023 Glucose Auto test strip (U) [Mass/Vol] Normal mg/dL Normal [facility] Urine hemoglobin detection b y automated test stripOrdered By: Halle Mac on 08-10-2023 Hemoglobin Auto test strip Ql (U) Negative Negative [facility] Urine leukocyte esterase det ection by automated test stripOrdered By: Halle Mac on 08-10-2023 Leukocyte esterase Auto test strip Ql (U) 2+ High Negative [facility] Urine protein/creatinine rat ioOrdered By: Halle Mac on 08-10-2023 Protein/Creatinine (U) [Ratio] TNP [facility] Comment on above: Test not performed Urobilinogen Auto test strip (U) [Mass/Vol]Ordered By: Halle Mac on 08-10-2023 Urobilinogen (U) [Mass/Vol] Normal mg/dL Normal [facility] Vitamin B12 ser/plasOrdered By: Halle Mac on 08-10-2023 Cobalamin (Vitamin B12) [Mass/Vol] 164 pg/mL Low 180-914 [facility] Vitamin D+Metabolites [Mass/ volume] in Serum or PlasmaOrdered By: Halle Mac on 08-10-2023 Vitamin D+Metabolites [Mass/Vol] 22.4 ng/mL Low 30-100 [facility] Comment on above: VITAMIN D STATUS 25( [place])VITAMIN D RANGE (ng/mL) Deficient <20 Insufficient 20 to <30Sufficient 30 to 100Reference: Karen MF,Nicole NC, Ed LI, et al. Evaluation,treatment, and prevention of vitamin D deficiency; an Endocrine Society clinical practice guideline. JCEM. 2010; 96(7):1911-30. pH Auto test strip (U)Ordere d By: Halle Mac on 08-10-2023 pH (U) 5.5 [pH] 5.0-9.0 [facility] Valproate [Mass/volume] in S brunilda or PlasmaOrdered By: Fauzia Huffman on 06-19-2023 Valproate [Mass/Vol] 14.5 ug/mL 50.0-100.0 [facility] Comment on above: Last dose: - Alanine aminotransferase [En zymatic activity/volume] in Serum or PlasmaOrdered By: Halle Mac on 05-17-2023 ALT [Catalytic activity/Vol] 16 U/L 7-52 [facility] Albumin [Mass/volume] in Ser um or Plasma by Bromocresol green (BCG) dye binding methoOrdered By: Halle Mac on 05-17-2023 Albumin BCG dye [Mass/Vol] 4.3 g/dL 3.5-5.7 [facility] Alkaline phosphatase [Enzyma tic activity/volume] in Serum or PlasmaOrdered By: Halle Mac on 05-17-2023 ALP [Catalytic activity/Vol] 61 U/L 34-104 [facility] Aspartate aminotransferase [ Enzymatic activity/volume] in Serum or PlasmaOrdered By: Halle Mac on 05-17-2023 AST [Catalytic activity/Vol] 23 U/L 13-39 [facility] Automated erythrocytes count in urine sediment (number/area)Ordered By: Halle Mac on 05-17-2023 RBC Auto (Urine sed) [#/Area] 3-4 [HPF] 0-4 [facility] Automated leukocytes count i n urine sediment (number/area)Ordered By: Halle Mac on 05-17-2023 WBC Auto (Urine sed) [#/Area] 10-19 [HPF] 0-4 [facility] Bilirubin Test strip Ql (U)O rdered By: Halle Mac on 05-17-2023 Bilirubin Ql (U) 2+ Negative [facility] Bilirubin.total [Mass/volume ] in Serum or PlasmaOrdered By: Halle Mac on 05-17-2023 Bilirubin [Mass/Vol] 0.5 mg/dL 0.3-1.0 [facility] Calcium [Mass/volume] in Ser um or PlasmaOrdered By: Halle Mac on 05-17-2023 Calcium [Mass/Vol] 9.3 mg/dL 8.6-10.[address] [facility] Carbon dioxide, total [Moles /volume] in Serum or PlasmaOrdered By: Halle Mac on 05-17-2023 CO2 [Moles/Vol] 28.0 mmol/L 21.0-31.0 [facility] Casts typing in urine sedime nt by light microscopyOrdered By: Halle Mac on 05-17-2023 Casts LM Nom (Urine sed) None seen [LPF] None Seen [facility] Chloride [Moles/volume] in S brunilda or PlasmaOrdered By: Halle Mac on 05-17-2023 Chloride [Moles/Vol] 107 mmol/L 98-107 [facility] Color Auto (U)Ordered By: Donald Mac on 05-17-2023 Color (U) Dark yellow Yellow [facility] Creatinine [Mass/volume] in Serum or PlasmaOrdered By: Halle Mac on 05-17-2023 Creatinine [Mass/Vol] 1.52 mg/dL 0.60-1.20 [facility] Creatinine [Mass/volume] in UrineOrdered By: Halle Mac on 05-17-2023 Creatinine (U) [Mass/Vol] mg/dL 11.0-20.0 [facility] Erythrocyte distribution wid th Auto (RBC) [Ratio]Ordered By: Halle Mac on 05-17-2023 Erythrocyte distribution width (RBC) [Ratio] 13.4 % 11.9-15.3 [facility] Ferritin [Mass/volume] in Se rum or PlasmaOrdered By: Halle Mac on 05-17-2023 Ferritin [Mass/Vol] 51.8 ng/mL 11.0-306.8 [facility] Fine granular cast count in urine sediment by microscopy (number/low power field )Ordered By: Halle Mac on 05-17-2023 Fine Granular Casts LM.LPF (Urine sed) [#/Area] 5-9 [LPF] 0-1 [facility] Globulin Calc (S) [Mass/Vol] Ordered By: Halle Mac on 05-17-2023 Globulin (S) [Mass/Vol] 2.3 g/dL [facility] Glucose [Mass/volume] in Ser um or PlasmaOrdered By: Halle Mac on 05-17-2023 Glucose [Mass/Vol] 123 mg/dL 70-[address] [facility] Comment on above: ADA recommended refe rence rangeRandom Glucose Reference Range is dependent on time and content of last meal. Glucose of more than 200 mg/dL in a nonstressed, ambulatory subject supports the diagnosis of Diabetes Mellitus. Hematocrit Auto (Bld) [Volum e fraction]Ordered By: Halle Mac on 05-17-2023 Hematocrit (Bld) [Volume fraction] 36.1 % 34.0-46.4 [facility] Hemoglobin [Mass/volume] in BloodOrdered By: Halle Mac on 05-17-2023 Hemoglobin (Bld) [Mass/Vol] 11.8 g/dL 11.8-15.4 [facility] Iron [Mass/volume] in Serum or PlasmaOrdered By: Halle Mac on 05-17-2023 Iron [Mass/Vol] 57 ug/dL 50-212 [facility] Iron binding capacity [Mass/ volume] in Serum or PlasmaOrdered By: Halle Mac on 05-17-2023 Iron binding capacity [Mass/Vol] 538 ug/dL 255-450 [facility] Iron saturation [Mass Fracti on] in Serum or PlasmaOrdered By: Halle Mac on 05-17-2023 Iron saturation [Mass fraction] 10.6 % 20-50 [facility] Ketones Auto test strip (U) [Mass/Vol]Ordered By: Halle Mac on 05-17-2023 Ketones (U) [Mass/Vol] 1+ Negative [facility] - UrinalysisOrder ed By: Halle Mac on 05-17-2023 Hyaline casts LM Ql (Urine sed) None seen [LPF] 0-8 [facility] Leukocytes [#/volume] correc joaquin for nucleated erythrocytes in Blood by Automated counOrdered By: Halle Mac on 05-17-2023 WBC corrected for nucl RBC Auto (Bld) [#/Vol] 5.5 10*3/uL 3.8-11.6 [facility] MCH Auto (RBC) [Entitic mass ]Ordered By: Halle Mac on 05-17-2023 MCH (RBC) [Entitic mass] 29.4 pg 24.7-34.3 [facility] MCHC Auto (RBC) [Mass/Vol]Or dered By: Halle Mac on 05-17-2023 MCHC (RBC) [Mass/Vol] 32.8 g/dL 32.0-35.0 [facility] MCV Auto (RBC) [Entitic vol] Ordered By: Halle Mac on 05-17-2023 MCV (RBC) [Entitic vol] 89.4 fL 80-100 [facility] Magnesium [Mass/volume] in S brunilda or PlasmaOrdered By: Halle Mac on 05-17-2023 Magnesium [Mass/Vol] 2.0 mg/dL 1.9-2.7 [facility] Mucus LM Ql (Urine sed)Order ed By: Halle Mac on 05-17-2023 Mucus Ql (Urine sed) 3+ [LPF] [facility] Nitrite Test strip Ql (U)Ord ered By: Halle Mac on 05-17-2023 Nitrite Ql (U) Negative Negative [facility] No Panel InformationOrdered By: Halle Mac on 05-17-2023 Estimated GFR (CKD-EPI) 41.013 mL/Min [facility] Creatinine Clearance (Chem N/A [facility] Parathyrin.intact [Mass/volu me] in Serum or PlasmaOrdered By: Halle Mac on 05-17-2023 Parathyrin.intact [Mass/Vol] 36.3 pg/mL 12-88 [facility] Phosphate [Mass/volume] in S brunilda or PlasmaOrdered By: Halle Mac on 05-17-2023 Phosphate [Mass/Vol] 4.4 mg/dL 2.5-4.5 [facility] Platelet mean volume Auto (B ld) [Entitic vol]Ordered By: Halle Mac on 05-17-2023 Platelet mean volume (Bld) [Entitic vol] 9.5 fL 6.3-10.7 [facility] Platelets Auto (Bld) [#/Vol] Ordered By: Halle Mac on 05-17-2023 Platelets (Bld) [#/Vol] 233 10*3/uL 150-450 [facility] Potassium [Moles/volume] in Serum or PlasmaOrdered By: Halle Mac on 05-17-2023 Potassium [Moles/Vol] 3.8 mmol/L 3.5-5.1 [facility] Protein Auto test strip (U) [Mass/Vol]Ordered By: Halle Mac on 05-17-2023 Protein (U) [Mass/Vol] 30 mg/dL Negative [facility] Protein [Mass/volume] in Ser um or PlasmaOrdered By: Halle Mac on 05-17-2023 Protein [Mass/Vol] 6.6 g/dL 6.4-8.[address] [facility] Protein [Mass/volume] in Uri neOrdered By: Halle Mac on 05-17-2023 Protein (U) [Mass/Vol] 35 mg/dL 0-9 [facility] RBC Auto (Bld) [#/Vol]Ordere d By: Halle Mac on 05-17-2023 RBC (Bld) [#/Vol] 4.03 10*6/uL 3.60-5.00 [facility] Serum or plasma albumin/glob ulin mass ratioOrdered By: Halle Mac on 05-17-2023 Albumin/Globulin [Mass ratio] 1.9 {ratio} [facility] Serum or plasma anion gap de terminationOrdered By: Halle Mac on 05-17-2023 Anion gap [Moles/Vol] 10.8 mmol/L 6.0-15.0 [facility] Sodium [Moles/volume] in Ser um or PlasmaOrdered By: Halle aMc on 05-17-2023 Sodium [Moles/Vol] 142 mmol/L 136-[address] [facility] Specific gravity Auto test s trip (U) [Rel density]Ordered By: Halle Mac on 05-17-2023 Specific gravity (U) [Rel density] 1.025 1.001-1.030 [facility] Squamous epithelial cells de tection in urine sediment by light microscopyOrdered By: Halle Mac on 05-17-2023 Epithelial cells.squamous LM Ql (Urine sed) 3-4 [HPF] 0-2 [facility] Transferrin [Mass/volume] in Serum or PlasmaOrdered By: Halle Mac on 05-17-2023 Transferrin [Mass/Vol] 384 mg/dL 203-[facility] Urate [Mass/volume] in Serum or PlasmaOrdered By: Halle Mac on 05-17-2023 Urate [Mass/Vol] 7.3 mg/dL 2.3-6.6 [facility] Urea nitrogen [Mass/volume] in Serum or PlasmaOrdered By: Halle Mac on 05-17-2023 Urea nitrogen [Mass/Vol] 26 mg/dL 7-25 [facility] Urine bacteria detection by automated methodOrdered By: Halle Mac on 05-17-2023 Bacteria Auto Ql (U) None seen None Seen [facility] Urine clarity by refractomet ry automatedOrdered By: Halle Mac on 05-17-2023 Clarity Refractometry automated (U) Cloudy Clear [facility] Urine culture routineOrdered By: Halle Mac on 05-17-2023 Bacteria identified Cx Nom (U) 2 Days [facility] Urine glucose measurement by automated test strip (mass/volume)Ordered By: Halle Mac on 05-17-2023 Glucose Auto test strip (U) [Mass/Vol] Normal mg/dL Normal [facility] Urine hemoglobin detection b y automated test stripOrdered By: Halle Mac on 05-17-2023 Hemoglobin Auto test strip Ql (U) Negative Negative [facility] Urine leukocyte esterase det ection by automated test stripOrdered By: Halle Mac on 05-17-2023 Leukocyte esterase Auto test strip Ql (U) 1+ Negative [facility] Urine protein/creatinine rat ioOrdered By: Halle Mac on 05-17-2023 Protein/Creatinine (U) [Ratio] TNP [facility] Comment on above: Test not performed Urobilinogen Auto test strip (U) [Mass/Vol]Ordered By: Halle Mac on 05-17-2023 Urobilinogen (U) [Mass/Vol] Normal mg/dL Normal [facility] Valproate [Mass/volume] in S brunilda or PlasmaOrdered By: Fauzia Huffman on 05-17-2023 Valproate [Mass/Vol] 24.0 ug/mL 50.0-100.0 [facility] Comment on above: Last dose: - Vitamin D+Metabolites [Mass/ volume] in Serum or PlasmaOrdered By: Halle Mac on 05-17-2023 Vitamin D+Metabolites [Mass/Vol] 24.3 ng/mL 30-100 [facility] Comment on above: VITAMIN D STATUS [...] (Urine sed) None seen [HPF] None Seen [facility] pH Auto test strip (U)Ordere d By: Halle Mac on 05-17-2023 pH (U) 5.0 [pH] 5.0-9.0 [facility] Provider Orderson 05-09-2023 Provider Orders [id number] Normal [facility] BNPon 09-07-2022 Natriuretic peptide B (Bld) [Mass/Vol] 391.0 pg/mL Normal <=900.0 [facility] Comment on above: Performed By: #### L IPID, BMP #### [facility] [address] [address] [address] Jag Waldrop CBC AUTO DIFFon 09-07-2022 BASO # 0.1 103/ul Normal 0.0-0.1 [facility] Comment on above: Performed By: #### L IPID, BMP #### [facility] [address] [address] [address] Jag Waldrop Basophils/100 WBC (Bld) 1.4 % Normal 0.2-2.0 [facility] Comment on above: Performed By: #### L IPID, BMP #### [facility] [address] [place] [address] Dr. Jag Waldrop EO # 0.1 103/ul Normal 0.0-0.7 [facility] Comment on above: Performed By: #### L IPID, BMP #### [facility] [address] [place] [address] Dr. Jag Waldrop Eosinophils/100 WBC (Bld) 1.6 % Normal 0.9-7.0 [facility] Comment on above: Performed By: #### L IPID, BMP #### [facility] [address] [place] [address] Dr. Jag Waldrop Erythrocyte distribution width (RBC) [Ratio] 15.0 % Normal 11.0-15.0 [facility] Comment on above: Performed By: #### L IPID, BMP #### [facility] [address] [place] [address] Dr. Jag Waldrop Hematocrit (Bld) [Volume fraction] 37.2 % Normal 36.0-48.0 [facility] Comment on above: Performed By: #### L IPID, BMP #### [facility] [address] [place] [address] Dr. Jag Waldrop Hemoglobin (Bld) [Mass/Vol] 11.6 g/dL Critically low 12.0-16.0 [facility] Comment on above: Performed By: #### L IPID, BMP #### [facility] [address] [place] [address] Dr. Jag Waldrop IG # 0.01 10e3/ul Normal 0.00-0.03 [facility] Comment on above: Performed By: #### L IPID, BMP #### [facility] [address] [place] [address] Dr. Jag Waldrop IG % 0.2 % Normal 0.0-0.5 [facility] Comment on above: Performed By: #### L IPID, BMP #### [facility] [address] [address] [address] Jag Waldrop LYMPH # 1.9 103/ul Normal 1.2-3.8 [facility] Comment on above: Performed By: #### L IPID, BMP #### [facility] [address] [place] [address] Dr. Jag Waldrop Lymphocytes/100 WBC (Bld) 39.1 % Normal 20.5-60.0 [facility] Comment on above: Performed By: #### L IPID, BMP #### [facility] [address] [place] [address] Dr. Jag Waldrop MANUAL DIFF REQ NO Normal [facility] Comment on above: Performed By: #### L IPID, BMP #### [facility] [address] [place] [address] Dr. Jag Waldrop MCH (RBC) [Entitic mass] 27.5 pg Normal 26.7-34.0 [facility] Comment on above: Performed By: #### L IPID, BMP #### [facility] [address] [place] [address] Dr. Jag Waldrop MCHC (RBC) [Mass/Vol] 31.2 g/dL Normal 29.9-35.2 [facility] Comment on above: Performed By: #### L IPID, BMP #### [facility] [address] [place] [address] Dr. Jag Waldrop MCV (RBC) [Entitic vol] 88.2 fL Normal 81.0-99.0 [facility] Comment on above: Performed By: #### L IPID, BMP #### [facility] [address] [place] [address] Dr. Jag Waldrop MONO # 0.3 103/ul Normal 0.3-0.8 [facility] Comment on above: Performed By: #### L IPID, BMP #### [facility] [address] [place] [address] Dr. Jag Waldrop Monocytes/100 WBC (Bld) 6.5 % Normal 1.7-12.0 [facility] Comment on above: Performed By: #### L IPID, BMP #### [facility] [address] [place] [address] Dr. Jag Waldrop NEUT # 2.5 103/ul Normal 1.4-6.5 [facility] Comment on above: Performed By: #### L IPID, BMP #### [facility] [address] [place] [address] Dr. Jag Waldrop Neutrophils/100 WBC (Bld) 51.2 % Normal 43.0-75.0 [facility] Comment on above: Performed By: #### L IPID, BMP #### [facility] [address] [place] [address] Dr. Jag Waldrop Platelet mean volume (Bld) [Entitic vol] 10.5 fL Normal 9.5-13.5 [facility] Comment on above: Performed By: #### L IPID, BMP #### [facility] [address] [place] [address] Dr. Jag Waldrop PLT 272 103/ul Normal 150-450 [facility] Comment on above: Performed By: #### L IPID, BMP #### [facility] [address] [place] [address] Dr. Jag Waldrop RBC 4.22 106/ul Normal 4.20-5.40 [facility] Comment on above: Performed By: #### L IPID, BMP #### [facility] [address] [place] [address] Dr. Jag Waldrop WBC 4.9 103/ul Normal 4.0-11.0 [facility] Comment on above: Performed By: #### L IPID, BMP #### [facility] [address] [place] [address] Dr. Jag Waldrop ER URINE PROFILEon 3 Bilirubin Ql (U) Negative Normal NEGATIVE [facility] Comment on above: Performed By: #### E RUR #### [facility] [address] [place] [address] Dr. Jag Waldrop Clarity (U) CLEAR Normal CLEAR [facility] Comment on above: Performed By: #### E RUR #### [facility] [address] [place] [address] Dr. Jag Waldrop Color (U) LT. YELLOW Normal YELLOW [facility] Comment on above: Performed By: #### E RUR #### [facility] [address] [place] [address] Dr. Jag Waldrop ERUAHD A micrscopic examina tion will be performed if indicated. Normal [facility] Comment on above: Performed By: #### E RUR #### [facility] [address] [place] [address] Dr. Jag Waldrop Glucose Ql (U) Negative Normal NEGATIVE [facility] Comment on above: Performed By: #### E RUR #### [facility] [address] [place] [address] Dr. Jag Waldrop Hemoglobin Ql (U) Negative Normal NEGATIVE [facility] Comment on above: Performed By: #### E RUR #### [facility] [address] [place] [address] Dr. Jag Waldrop Ketones Ql (U) Negative Normal NEGATIVE [facility] Comment on above: Performed By: #### E RUR #### [facility] [address] [place] [address] Dr. Jag Waldrop LEUKOCYTES Negative Normal NEGATIVE [facility] Comment on above: Performed By: #### E RUR #### [facility] [address] [place] [address] Dr. Jag Waldrop Nitrite Ql (U) Negative Normal NEGATIVE [facility] Comment on above: Performed By: #### E RUR #### [facility] [address] [place] [address] Dr. Jag Waldrop pH (U) 7.0 [pH] Normal 5-9 [facility] Comment on above: Performed By: #### E RUR #### [facility] [address] [place] [address] Dr. Jag Waldrop SPEC GRAVITY 1.010 Normal 1.005-<=1.0 25 [facility] Comment on above: Performed By: #### E RUR #### [facility] [address] [place] [address] Dr. Jag Waldrop UA PROTEIN Negative Normal NEGATIVE/ TRACE [facility] Comment on above: Performed By: #### E RUR #### [facility] [address] [place] [address] Dr. Jag Waldrop UR MICRO IND NOT INDICATED Normal [facility] Comment on above: Performed By: #### E RUR #### [facility] [address] [place] [address] Dr. Jag Waldrop Urobilinogen Qn (U) 0.2 {Chris'U}/dL Normal 0.2 - 1. 0 [facility] Comment on above: Performed By: #### E RUR #### [facility] [address] [place] [address] Dr. Jag Waldrop PROF 14(COMP METB)on 023 Albumin [Mass/Vol] 3.9 g/dL Normal 3.4-5.0 [facility] Comment on above: Performed By: #### L IPID, BMP #### [facility] [address] [place] [address] Dr. Jag Waldrop Albumin/Globulin [Mass ratio] 1.2 {ratio} Normal [facility] Comment on above: Performed By: #### L IPID, BMP #### [facility] [address] [place] [address] Dr. Jag Waldrop ALP [Catalytic activity/Vol] 95 U/L Normal 46-116 [facility] Comment on above: Performed By: #### L IPID, BMP #### [facility] [address] [place] [address] Dr. Jag Waldrop ALT [Catalytic activity/Vol] 31 U/L Normal 14-59 [facility] Comment on above: Performed By: #### L IPID, BMP #### [facility] [address] [place] [address] Dr. Jag Waldrop Anion gap [Moles/Vol] 12.7 mmol/L Normal [facility] Comment on above: Performed By: #### L IPID, BMP #### [facility] [address] [address] [address] Jag Waldrop AST [Catalytic activity/Vol] 34 U/L Normal 15-37 [facility] Comment on above: Performed By: #### L IPID, BMP #### [facility] [address] [address] [address] Jag Waldrop Bilirubin [Mass/Vol] 0.4 mg/dL Normal 0.2-1.0 [facility] Comment on above: Performed By: #### L IPID, BMP #### [facility] [address] [address] [address] Jag Waldrop Calcium [Mass/Vol] 9.1 mg/dL Normal 8.5-10.1 [facility] Comment on above: Performed By: #### L IPID, BMP #### [facility] [address] [place] [address] Dr. Jag Waldrop Chloride [Moles/Vol] 107 mmol/L Normal 98-107 [facility] Comment on above: Performed By: #### L IPID, BMP #### [facility] [address] [address] [address] Jag Waldrop CO2 [Moles/Vol] 28.1 mmol/L Normal 21.0-32.0 [facility] Comment on above: Performed By: #### L IPID, BMP #### [facility] [address] [address] [address] Jag Waldrop Creatinine [Mass/Vol] 1.18 mg/dL Critically high 0.55-1.02 [facility] Comment on above: Performed By: #### L IPID, BMP #### [facility] [address] [address] [address] Jag Waldrop EGFR-AF TURKMEN 59 mL/min/1.73m2 Critically low >=60 [facility] Comment on above: Performed By: #### L IPID, BMP #### [facility] [address] [address] [address] Jag Waldrop EGFR-NON AF TURKMEN 48 mL/min/1.73m2 Critically low >=60 [facility] Comment on above: Performed By: #### L IPID, BMP #### [facility] [address] [address] [address] Jag Waldrop Globulin (S) [Mass/Vol] 3.3 g/dL Normal [facility] Comment on above: Performed By: #### L IPID, BMP #### [facility] [address] [place] [address] Dr. Jag Waldrop Glucose [Mass/Vol] 111 mg/dL Critically high 74-106 T [facility] Comment on above: Performed By: #### L IPID, BMP #### [facility] [address] [place] [address] Dr. Jag Waldrop Potassium [Moles/Vol] 3.8 mmol/L Normal 3.5-5.1 [facility] Comment on above: Performed By: #### L IPID, BMP #### [facility] [address] [place] [address] Dr. Jag Waldrop Protein [Mass/Vol] 7.2 g/dL Normal 6.4-8.2 [facility] Comment on above: Performed By: #### L IPID, BMP #### [facility] [address] [place] [address] Dr. Jag Waldrop Sodium [Moles/Vol] 144 mmol/L Normal 136-145 [facility] Comment on above: Performed By: #### L IPID, BMP #### [facility] [address] [place] [address] Dr. Jag Waldrop Urea nitrogen [Mass/Vol] 19.0 mg/dL Critically high 7.0-18.0 [facility] Comment on above: Performed By: #### L IPID, BMP #### [facility] [address] [place] [address] Dr. Jag Waldrop Urea nitrogen/Creatinine [Mass ratio] 16.1 mg/mg Normal [facility] Comment on above: Performed By: #### L IPID, BMP #### [facility] [address] [place] [address] Dr. Jag Waldrop PROTIMEon 09-07-2022 INR Coag (PPP) [Relative time] {INR} Normal [facility] Comment on above: Performed By: #### P T #### [facility] [address] [place] [address] Dr. Jag Waldrop INR GUIDELINES SEE BELOW Normal [facility] Comment on above: Result Comment: MARTIN RED INR: 2.0 - 3.0 CONDITIONS NOT LISTED BELOW 2.5 - 3.5 FOR PROSTHETIC HEART VALVE REPLACEMENT 2.5 - 3.5 RECURRENT THROMBOSIS Performed By: #### P T #### [facility] [address] [address] [address] Jag Waldrop PT Coag (PPP) [Time] 9.7 s Normal 9.0-11.6 [facility] Comment on above: Performed By: #### P T #### [facility] [address] [place] [address] Dr. Jag Waldrop TROPONIN, HIGH SENSITIVITYon 09-07-2022 HSTROP 17.8 pg/mL Normal 4.0-51.3 [facility] Comment on above: Result Comment: CUT- OFF POINTS HAVE BEEN ESTABLISHED BASED ON THE FOURTH UNIVERSAL DEFINITIONS OF MYOCARDIAL INFARCTION. THE UPPER REFERENCE LIMIT (URL) OF TROPONIN, DEFINED THE 99TH PERCENTILE OF cTnI DISTRIBUTION IN A REFERENCE POPULATION, HAS BEEN CONFIRMED THE DECISION THRESHOLD FOR LA DIAGNOSIS. Performed By: #### L IPID, BMP #### [facility] [address] [place] [address] Dr. Jag Waldrop XR CHEST 2 Von [...] by: WAN JENKINS Date: 2022-09-07 16:47 Normal [facility] GLYCOHEMOGLOBIN A1Con 2022 ADA RECOMMENDATION SEE BELOW Normal [facility] Comment on above: Result Comment: ADA RECOMMENDED LIMIT 4.0 - 6.0 ADA THERAPEUTIC TARGET < 7.0 ACTION SUGGESTED > 7.0 Performed By: #### L IPID, BMP #### [facility] [address] [address] [address] Jag Waldrop Glucose [Mass/Vol] 120 mg/dL Normal [facility] Comment on above: Performed By: #### L IPID, BMP #### [facility] [address] [place] [address] Dr. Jag Waldrop HbA1c (Bld) [Mass fraction] 5.8 % Normal 4.5-6.2 [facility] Comment on above: Performed By: #### L IPID, BMP #### [facility] [address] [place] [address] Dr. Jag Waldrop PROF CHEM 8 (BAS METB)on Anion gap [Moles/Vol] 13.2 mmol/L Normal [facility] Comment on above: Performed By: #### B MP #### [facility] [address] [place] [address] Dr. Jag Waldrop Calcium [Mass/Vol] 9.0 mg/dL Normal 8.5-10.1 [facility] Comment on above: Performed By: #### B MP #### [facility] [address] [place] [address] Dr. Jag Waldrop Chloride [Moles/Vol] 107 mmol/L Normal 98-107 [facility] Comment on above: Performed By: #### B MP #### [facility] [address] [place] [address] Dr. Jag Waldrop CO2 [Moles/Vol] 26.3 mmol/L Normal 21.0-32.0 [facility] Comment on above: Performed By: #### B MP #### [facility] [address] [place] [address] Dr. Jag Waldrop Creatinine [Mass/Vol] 1.03 mg/dL Critically high 0.55-1.02 [facility] Comment on above: Performed By: #### B MP #### [facility] [address] [place] [address] Dr. Jag Waldrop EGFR-AF TURKMEN >60 Normal >=60 [facility] Comment on above: Performed By: #### B MP #### [facility] [address] [place], [place] [address] Dr. Jag Waldrop EGFR-NON AF TURKMEN 56 mL/min/1.73m2 Critically low >=60 [facility] Comment on above: Performed By: #### B MP #### [facility] [id number] Jag Waldrop Glucose [Mass/Vol] 149 mg/dL Critically high 74-106 T [facility] Comment on above: Performed By: #### B MP #### [facility] [address] [address] [address] Jag Waldrop Potassium [Moles/Vol] 4.5 mmol/L Normal 3.5-5.1 [facility] Comment on above: Performed By: #### B MP #### [facility] [address] [address] [address] Jag Waldrop Sodium [Moles/Vol] 142 mmol/L Normal 136-145 [facility] Comment on above: Performed By: #### B MP #### [facility] [address] [place], [place] [address] Dr. Jag Waldrop Urea nitrogen [Mass/Vol] 22.0 mg/dL Critically high 7.0-18.0 [facility] Comment on above: Performed By: #### B MP #### [facility] [id number] Jag Waldrop Urea nitrogen/Creatinine [Mass ratio] 21.4 mg/mg Normal [facility] Comment on above: Performed By: #### B MP #### [facility] [id number] Jag Waldrop CT ABD/PELVIS WO CONon [...] NATHAN COLE Date: 2022-05-29 22:50 Normal [facility] US KVNG DOP LEG RTon 05-30-19 [...] LUZ COELLO Date: 2022-05-29 22:42 Normal [facility] CBC AUTO DIFFon 05-29-2022 BASO # 0.1 103/ul Normal 0.0-0.1 [facility] Comment on above: Performed By: #### L IPID, BMP #### [facility] [address] [place] [address] Dr. Jag Waldrop Basophils/100 WBC (Bld) 0.7 % Normal 0.2-2.0 [facility] Comment on above: Performed By: #### L IPID, BMP #### [facility] [address] [place] [address] Dr. Jag Waldrop EO # 0.1 103/ul Normal 0.0-0.7 [facility] Comment on above: Performed By: #### L IPID, BMP #### [facility] [address] [place] [address] Dr. Jag Waldrop Eosinophils/100 WBC (Bld) 1.5 % Normal 0.9-7.0 [facility] Comment on above: Performed By: #### L IPID, BMP #### [facility] [address] [place] [address] Dr. Jag Waldrop Erythrocyte distribution width (RBC) [Ratio] 13.9 % Normal 11.0-15.0 [facility] Comment on above: Performed By: #### L IPID, BMP #### [facility] [address] [place] [address] Dr. Jag Waldrop Hematocrit (Bld) [Volume fraction] 34.2 % Critically low 36.0-48.0 [facility] Comment on above: Performed By: #### L IPID, BMP #### [facility] [address] [place] [address] Dr. Jag Waldrop Hemoglobin (Bld) [Mass/Vol] 10.9 g/dL Critically low 12.0-16.0 [facility] Comment on above: Performed By: #### L IPID, BMP #### [facility] [address] [place] [address] Dr. Jag Waldrop IG # 0.02 10e3/ul Normal 0.00-0.03 [facility] Comment on above: Performed By: #### L IPID, BMP #### [facility] [address] [place] [address] Dr. Jag Waldrop IG % 0.2 % Normal 0.0-0.5 [facility] Comment on above: Performed By: #### L IPID, BMP #### [facility] [address] [place] [address] Dr. Jag Waldrop LYMPH # 2.5 103/ul Normal 1.2-3.8 [facility] Comment on above: Performed By: #### L IPID, BMP #### [facility] [address] [place] [address] Dr. Jag Waldrop Lymphocytes/100 WBC (Bld) 30.4 % Normal 20.5-60.0 [facility] Comment on above: Performed By: #### L IPID, BMP #### [facility] [address] [place] [address] Dr. Jag Waldrop MANUAL DIFF REQ NO Normal [facility] Comment on above: Performed By: #### L IPID, BMP #### [facility] [address] [place] [address] Dr. Jag Waldrop MCH (RBC) [Entitic mass] 27.1 pg Normal 26.7-34.0 [facility] Comment on above: Performed By: #### L IPID, BMP #### [facility] [address] [place] [address] Dr. Jag Waldrop MCHC (RBC) [Mass/Vol] 31.9 g/dL Normal 29.9-35.2 [facility] Comment on above: Performed By: #### L IPID, BMP #### [facility] [address] [place] [address] Dr. Jag Waldrop MCV (RBC) [Entitic vol] 85.1 fL Normal 81.0-99.0 [facility] Comment on above: Performed By: #### L IPID, BMP #### [facility] [address] [place] [address] Dr. Jag Waldrop MONO # 0.5 103/ul Normal 0.3-0.8 [facility] Comment on above: Performed By: #### L IPID, BMP #### [facility] [address] [address] [address] Jag Waldrop Monocytes/100 WBC (Bld) 6.7 % Normal 1.7-12.0 [facility] Comment on above: Performed By: #### L IPID, BMP #### [facility] [address] [place] [address] Dr. Jag Waldrop NEUT # 4.9 103/ul Normal 1.4-6.5 [facility] Comment on above: Performed By: #### L IPID, BMP #### [facility] [address] [place] [address] Dr. Jag Waldrop Neutrophils/100 WBC (Bld) 60.5 % Normal 43.0-75.0 [facility] Comment on above: Performed By: #### L IPID, BMP #### [facility] [address] [place] [address] Dr. Jag Waldrop Platelet mean volume (Bld) [Entitic vol] 10.3 fL Normal 9.5-13.5 [facility] Comment on above: Performed By: #### L IPID, BMP #### [facility] [address] [place] [address] Dr. Jag Waldrop PLT 256 103/ul Normal 150-450 [facility] Comment on above: Performed By: #### L IPID, BMP #### [facility] [address] [place] [address] Dr. Jag Waldrop RBC 4.02 106/ul Critically low 4.20-5.40 [facility] Comment on above: Performed By: #### L IPID, BMP #### [facility] [address] [place] [address] Dr. Jag Walrdop WBC 8.1 103/ul Normal 4.0-11.0 [facility] Comment on above: Performed By: #### L IPID, BMP #### [facility] [address] [place] [address] Dr. Jag Waldrop ER URINE PROFILEon 3 Bilirubin Ql (U) Negative Normal NEGATIVE [facility] Comment on above: Performed By: #### L IPID, BMP #### [facility] [address] [place] [address] Dr. Jag Waldrop Clarity (U) CLEAR Normal CLEAR [facility] Comment on above: Performed By: #### L IPID, BMP #### [facility] [address] [place] [address] Dr. Jag Waldrop Color (U) YELLOW Normal YELLOW [facility] Comment on above: Performed By: #### L IPID, BMP #### [facility] [address] [place] [address] Dr. Jag Waldrop ERUAHD A micrscopic examina tion will be performed if indicated. Normal [facility] Comment on above: Performed By: #### L IPID, BMP #### [facility] [address] [place] [address] Dr. Jag Waldrop Glucose Ql (U) Negative Normal NEGATIVE [facility] Comment on above: Performed By: #### L IPID, BMP #### [facility] [address] [place] [address] Dr. Jag Waldrop Hemoglobin Ql (U) Negative Normal NEGATIVE [facility] Comment on above: Performed By: #### L IPID, BMP #### [facility] [address] [place] [address] Dr. Jag Waldrop Ketones Ql (U) 15 mg/dl Abnormal NEGATIVE [facility] Comment on above: Performed By: #### L IPID, BMP #### [facility] [address] [place] [address] Dr. Jag Waldrop LEUKOCYTES TRACE Abnormal NEGATIVE [facility] Comment on above: Performed By: #### L IPID, BMP #### [facility] [address] [place] [address] Dr. Jag Waldrop Nitrite Ql (U) Negative Normal NEGATIVE [facility] Comment on above: Performed By: #### L IPID, BMP #### [facility] [address] [place] [address] Dr. Jag Waldrop pH (U) 5.5 [pH] Normal 5-9 [facility] Comment on above: Performed By: #### L IPID, BMP #### [facility] [address] [place] [address] Dr. Jag Waldrop SPEC GRAVITY 1.020 Normal 1.005-<=1.0 25 [facility] Comment on above: Performed By: #### L IPID, BMP #### [facility] [address] [place] [address] Dr. Jag Waldrop UA PROTEIN Negative Normal NEGATIVE/ TRACE [facility] Comment on above: Performed By: #### L IPID, BMP #### [facility] [address] [place] [address] Dr. Jag Waldrop UR MICRO IND INDICATED Normal [facility] Comment on above: Performed By: #### L IPID, BMP #### [facility] [address] [place] [address] Dr. Jag Waldrop Urobilinogen Qn (U) 0.2 {Chris'U}/dL Normal 0.2 - 1. 0 [facility] Comment on above: Performed By: #### L IPID, BMP #### [facility] [address] [place] [address] Dr. Jag Waldrop PROF CHEM 8 (BAS METB)on Anion gap [Moles/Vol] 14.2 mmol/L Normal [facility] Comment on above: Performed By: #### B MP #### [facility] [address] [place] [address] Dr. Jag Waldrop Calcium [Mass/Vol] 9.1 mg/dL Normal 8.5-10.1 [facility] Comment on above: Performed By: #### B MP #### [facility] [address] [place] [address] Dr. Jag Waldrop Chloride [Moles/Vol] 106 mmol/L Normal 98-107 [facility] Comment on above: Performed By: #### B MP #### [facility] [address] [place] [address] Dr. Jag Waldrop CO2 [Moles/Vol] 23.5 mmol/L Normal 21.0-32.0 [facility] Comment on above: Performed By: #### B MP #### [facility] [address] [address] [address] Jag Waldrop Creatinine [Mass/Vol] 1.29 mg/dL Critically high 0.55-1.02 [facility] Comment on above: Performed By: #### B MP #### [facility] [address] [address] [address] Jag Waldrop EGFR-AF TURKMEN 53 mL/min/1.73m2 Critically low >=60 [facility] Comment on above: Performed By: #### B MP #### [facility] [address] [address] [address] Jag Waldrop EGFR-NON AF TURKMEN 44 mL/min/1.73m2 Critically low >=60 [facility] Comment on above: Performed By: #### B MP #### [facility] [address] [address] [address] Jag Waldrop Glucose [Mass/Vol] 93 mg/dL Normal 74-106 [facility] Comment on above: Performed By: #### B MP #### [facility] [address] [address] [address] Jag Waldrop Potassium [Moles/Vol] 3.7 mmol/L Normal 3.5-5.1 [facility] Comment on above: Performed By: #### B MP #### [facility] [address] [address] [address] Jag Waldrop Sodium [Moles/Vol] 140 mmol/L Normal 136-145 [facility] Comment on above: Performed By: #### B MP #### [facility] [address] [address] [address] Jag Waldrop Urea nitrogen [Mass/Vol] 24.0 mg/dL Critically high 7.0-18.0 [facility] Comment on above: Performed By: #### B MP #### [facility] [address] [address] [address] Jag Waldrop Urea nitrogen/Creatinine [Mass ratio] 18.6 mg/mg Normal [facility] Comment on above: Performed By: #### B MP #### [facility] [address] [address] [address] Jag Waldrop URINE MICROSCOPIC ONLYon BACTERIA TRACE Abnormal NONE SEEN [facility] Comment on above: Performed By: #### L IPID, BMP #### [facility] [address] [place] [address] Dr. Jag Waldrop Bacteria identified Cx Nom (U) NOT INDICATED Normal [facility] Comment on above: Performed By: #### L IPID, BMP #### [facility] [address] [place] [address] Dr. Jag Waldrop CAST NONE SEEN Normal NONE SEEN [facility] Comment on above: Performed By: #### L IPID, BMP #### [facility] [address] [place] [address] Dr. Jag Waldrop Crystals LM Nom (Urine sed) NONE SEEN Normal NONE SEEN [facility] Comment on above: Performed By: #### L IPID, BMP #### [facility] [address] [place] [address] Dr. Jag Waldrop Epithelial cells LM Ql (Urine sed) RARE Normal NONE SEEN /RARE [facility] Comment on above: Performed By: #### L IPID, BMP #### [facility] [address] [place] [address] Dr. Jag Waldrop MUCOUS NONE SEEN Normal NONE SEEN [facility] Comment on above: Performed By: #### L IPID, BMP #### [facility] [address] [place] [address] Dr. Jag Waldrop RBC 5-10 Abnormal 0-2 [facility] Comment on above: Performed By: #### L IPID, BMP #### [facility] [address] [place] [address] Dr. Jag Waldrop WBC 0-2 Abnormal NONE SEEN [facility] Comment on above: Performed By: #### L IPID, BMP #### [facility] [address] [place] [address] Dr. Jag Waldrop MG MAMM SCREEN 3D ORESTES CADon 03-29-2022 MG MAMM SCREEN 3D ORESTES CAD Patient: SHERLY HUMPHREYS Exam Date: 03/29/2022 : 1970 Gender:F Ordering : AGUSTINA JANENE [employer] Admission #: [id number] Family : Order #: [id number] CLICK HERE TO VIEW EXAM RADIOLOGY REPORT [...] head/neck cancer at age 73. LOCATION: [facility] BREAST COMPOSITION: Scattered areas fibroglandular density. [...] M.D. on 03/29/2022 at 15:31 Normal [facility] MRI LSPINE WO W CONon 2021 [...] KATHY LOBATO Date: 2022-03-23 11:26 Normal [facility] MRI TSPINE WO W CONon 2021 [...] KATHY LOBATO Date: 2022-03-23 12:50 Normal [facility] PROF CHEM 8 (BAS METB)on Anion gap [Moles/Vol] 11.8 mmol/L Normal [facility] Comment on above: Performed By: #### P OCGLUC #### [facility] [address] [address] [address] Jag Waldrop Calcium [Mass/Vol] 9.0 mg/dL Normal 8.5-10.1 [facility] Comment on above: Performed By: #### P OCGLUC #### [facility] [address] [address] [address] Jag Waldrop Chloride [Moles/Vol] 107 mmol/L Normal 98-107 [facility] Comment on above: Performed By: #### P OCGLUC #### [facility] [address] [address] [address] Jag Waldrop CO2 [Moles/Vol] 30.2 mmol/L Normal 21.0-32.0 [facility] Comment on above: Performed By: #### P OCGLUC #### [facility] [address] [address] [address] Jag Waldrop Creatinine [Mass/Vol] 1.32 mg/dL Critically high 0.55-1.02 [facility] Comment on above: Performed By: #### P OCGLUC #### [facility] [address] [address] [address] Jag Waldrop EGFR-AF TURKMEN 51 mL/min/1.73m2 Critically low >=60 [facility] Comment on above: Performed By: #### P OCGLUC #### [facility] [address] [address] [address] Jag Waldrop EGFR-NON AF TURKMEN 42 mL/min/1.73m2 Critically low >=60 [facility] Comment on above: Performed By: #### P OCGLUC #### [facility] [address] [address] [address] Jag Waldrop Glucose [Mass/Vol] 117 mg/dL Critically high 74-106 [facility] Comment on above: Performed By: #### P OCGLUC #### [facility] [address] [address] [address] Jag Waldrop Potassium [Moles/Vol] 4.0 mmol/L Normal 3.5-5.1 [facility] Comment on above: Performed By: #### P OCGLUC #### [facility] [address] [address] [address] Jag Waldrop Sodium [Moles/Vol] 145 mmol/L Normal 136-145 [facility] Comment on above: Performed By: #### P OCGLUC #### [facility] [address] [address] [address] Jag Waldrop Urea nitrogen [Mass/Vol] 23.0 mg/dL Critically high 7.0-18.0 [facility] Comment on above: Performed By: #### P OCGLUC #### [facility] [address] [place] [address] Dr. Jag Waldrop Urea nitrogen/Creatinine [Mass ratio] 17.4 mg/mg Normal [facility] [facility] Comment on above: Performed By: #### P OCGLUC #### [facility] [address] [place] [address] Dr. Jag Waldrop CBC AUTO DIFFon 02-19-2022 BASO # 0.1 103/ul Normal 0.0-0.1 [facility] Comment on above: Performed By: #### P OCGLUC #### [facility] [address] [place] [address] Dr. Jag Waldrop Basophils/100 WBC (Bld) 1.0 % Normal 0.2-2.0 [facility] Comment on above: Performed By: #### P OCGLUC #### [facility] [address] [place] [address] Dr. Jag Waldrop EO # 0.1 103/ul Normal 0.0-0.7 [facility] Comment on above: Performed By: #### P OCGLUC #### [facility] [address] [place] [address] Dr. Jag Waldrop Eosinophils/100 WBC (Bld) 1.9 % Normal 0.9-7.0 [facility] Comment on above: Performed By: #### P OCGLUC #### [facility] [address] [place] [address] Dr. Jag Waldrop Erythrocyte distribution width (RBC) [Ratio] 13.2 % Normal 11.0-15.0 [facility] Comment on above: Performed By: #### P OCGLUC #### [facility] [address] [place] [address] Dr. Jag Waldrop Hematocrit (Bld) [Volume fraction] 36.7 % Normal 36.0-48.0 [facility] Comment on above: Performed By: #### P OCGLUC #### [facility] [address] [place] [address] Dr. Jag Waldrop Hemoglobin (Bld) [Mass/Vol] 11.4 g/dL Critically low 12.0-16.0 [facility] Comment on above: Performed By: #### P OCGLUC #### [facility] [address] [place] [address] Dr. Jag Waldrop IG # 0.03 10e3/ul Normal 0.00-0.03 [facility] Comment on above: Performed By: #### P OCGLUC #### [facility] [address] [place] [address] Dr. Jag Waldrop IG % 0.5 % Normal 0.0-0.5 [facility] Comment on above: Performed By: #### P OCGLUC #### [facility] [address] [place] [address] Dr. Jag Waldrop LYMPH # 2.1 103/ul Normal 1.2-3.8 [facility] Comment on above: Performed By: #### P OCGLUC #### [facility] [address] [place] [address] Dr. Jag Waldrop Lymphocytes/100 WBC (Bld) 34.1 % Normal 20.5-60.0 [facility] Comment on above: Performed By: #### P OCGLUC #### [facility] [address] [place] [address] Dr. Jag Waldrop MANUAL DIFF REQ NO Normal [facility] Comment on above: Performed By: #### P OCGLUC #### [facility] [address] [place] [address] Dr. Jag Waldrop MCH (RBC) [Entitic mass] 28.4 pg Normal 26.7-34.0 [facility] Comment on above: Performed By: #### P OCGLUC #### [facility] [address] [place] [address] Dr. Jag Waldrop MCHC (RBC) [Mass/Vol] 31.1 g/dL Normal 29.9-35.2 [facility] Comment on above: Performed By: #### P OCGLUC #### [facility] [address] [place] [address] Dr. Jag Waldrop MCV (RBC) [Entitic vol] 91.5 fL Normal 81.0-99.0 [facility] Comment on above: Performed By: #### P OCGLUC #### [facility] [address] [place] [address] Dr. Jag Waldrop MONO # 0.5 103/ul Normal 0.3-0.8 [facility] Comment on above: Performed By: #### P OCGLUC #### [facility] [address] [place] [address] Dr. Jag Waldrop Monocytes/100 WBC (Bld) 8.4 % Normal 1.7-12.0 [facility] Comment on above: Performed By: #### P OCGLUC #### [facility] [address] [place] [address] Dr. Jag Waldrop NEUT # 3.3 103/ul Normal 1.4-6.5 [facility] Comment on above: Performed By: #### P OCGLUC #### [facility] [address] [place] [address] Dr. Jag Waldrop Neutrophils/100 WBC (Bld) 54.1 % Normal 43.0-75.0 [facility] Comment on above: Performed By: #### P OCGLUC #### [facility] [address] [place] [address] Dr. Jag Waldrop Platelet mean volume (Bld) [Entitic vol] 10.6 fL Normal 9.5-13.5 [facility] Comment on above: Performed By: #### P OCGLUC #### [facility] [address] [place] [address] Dr. Jag Waldrop PLT 294 103/ul Normal 150-450 [facility] Comment on above: Performed By: #### P OCGLUC #### [facility] [address] [place] [address] Dr. Jag Waldrop RBC 4.01 106/ul Critically low 4.20-5.40 [facility] Comment on above: Performed By: #### P OCGLUC #### [facility] [address] [address] [address] Jag Waldrop WBC 6.2 103/ul Normal 4.0-11.0 [facility] Comment on above: Performed By: #### P OCGLUC #### [facility] [address] [address] [address] Jag Waldrop CRPon 02-19-2022 CRP [Mass/Vol] mg/L Normal <=1.0 [facility] Comment on above: Performed By: #### E RUR #### [facility] [address] [address] [address] TSPINE WO CONon [...] ALEX AVINA Date: 2022-02-19 19:25 Normal [facility] URINE PROFILEon 2 Bilirubin Ql (U) Negative Normal NEGATIVE [facility] Comment on above: Performed By: #### P OCGLUC #### [facility] [address] [address] [address] Jag Waldrop Clarity (U) CLEAR Normal CLEAR [facility] Comment on above: Performed By: #### P OCGLUC #### [facility] [address] [address] [address] Jag Waldrop Color (U) LT. YELLOW Normal YELLOW [facility] Comment on above: Performed By: #### P OCGLUC #### [facility] [address] [place] [address] Dr. Jag Waldrop ERUAHD A micrscopic examina tion will be performed if indicated. Normal [facility] Comment on above: Performed By: #### P OCGLUC #### [facility] [address] [place] [address] Dr. Jag Waldrop Glucose Ql (U) Negative Normal NEGATIVE [facility] Comment on above: Performed By: #### P OCGLUC #### [facility] [address] [place] [address] Dr. Jag Waldrop Hemoglobin Ql (U) Negative Normal NEGATIVE [facility] Comment on above: Performed By: #### P OCGLUC #### [facility] [address] [place] [address] Dr. Jag Waldrop Ketones Ql (U) Negative Normal NEGATIVE [facility] Comment on above: Performed By: #### P OCGLUC #### [facility] [address] [place] [address] Dr. Jag Waldrop LEUKOCYTES Negative Normal NEGATIVE [facility] Comment on above: Performed By: #### P OCGLUC #### [facility] [address] [place] [address] Dr. Jag Waldrop Nitrite Ql (U) Negative Normal NEGATIVE [facility] Comment on above: Performed By: #### P OCGLUC #### [facility] [address] [place] [address] Dr. Jag Waldrop pH (U) 5.5 [pH] Normal 5-9 [facility] Comment on above: Performed By: #### P OCGLUC #### [facility] [address] [place] [address] Dr. Jag Waldrop SPEC GRAVITY 1.020 Normal 1.005-<=1.0 25 [facility] Comment on above: Performed By: #### P OCGLUC #### [facility] [address] [place] [address] Dr. Jag Waldrop UA PROTEIN Negative Normal NEGATIVE/ TRACE [facility] Comment on above: Performed By: #### P OCGLUC #### [facility] [address] [place] [address] Dr. Jag Waldrop UR MICRO IND NOT INDICATED Normal [facility] Comment on above: Performed By: #### P OCGLUC #### [facility] [address] [place] [address] Dr. aJg Waldrop Urobilinogen Qn (U) 0.2 {Chris'U}/dL Normal 0.2 - 1. 0 [facility] Comment on above: Performed By: #### P OCGLUC #### [facility] [address] [place] [address] Dr. Jag Waldrop PROF CHEM 8 (BAS METB)on Anion gap [Moles/Vol] 10.8 mmol/L Normal [facility] Comment on above: Performed By: #### E RUR #### [facility] [address] [place] [address] Dr. Jag Waldrop Calcium [Mass/Vol] 9.0 mg/dL Normal 8.5-10.1 [facility] Comment on above: Performed By: #### E RUR #### [facility] [address] [place] [address] Dr. Jag Waldrop Chloride [Moles/Vol] 106 mmol/L Normal 98-107 [facility] Comment on above: Performed By: #### E RUR #### [facility] [address] [place] [address] Dr. Jag Waldrop CO2 [Moles/Vol] 28.1 mmol/L Normal 21.0-32.0 [facility] Comment on above: Performed By: #### E RUR #### [facility] [address] [place] [address] Dr. Jag Waldrop Creatinine [Mass/Vol] 1.06 mg/dL Critically high 0.55-1.02 [facility] Comment on above: Performed By: #### E RUR #### [facility] [address] [address] [address] Jag Waldrop EGFR-AF TURKMEN >60 Normal >=60 [facility] Comment on above: Performed By: #### E RUR #### [facility] [address] [address] [address] Jag Waldrop EGFR-NON AF TURKMEN 55 mL/min/1.73m2 Critically low >=60 [facility] Comment on above: Performed By: #### E RUR #### [facility] [address] [address] [address] Jag Waldrop Glucose [Mass/Vol] 89 mg/dL Normal 74-106 [facility] Comment on above: Performed By: #### E RUR #### [facility] [address] [place] [address] Dr. Jag Waldrop Potassium [Moles/Vol] 3.9 mmol/L Normal 3.5-5.1 [facility] Comment on above: Performed By: #### E RUR #### [facility] [address] [place] [address] Dr. Jag Waldrop Sodium [Moles/Vol] 141 mmol/L Normal 136-145 [facility] Comment on above: Performed By: #### E RUR #### [facility] [address] [place] [address] Dr. Jag Waldrop Urea nitrogen [Mass/Vol] 19.0 mg/dL Critically high 7.0-18.0 [facility] Comment on above: Performed By: #### E RUR #### [facility] [address] [place] [address] Dr. Jag Waldrop Urea nitrogen/Creatinine [Mass ratio] 17.9 mg/mg Normal [facility] Comment on above: Performed By: #### E RUR #### [facility] [address] [place] [address] Dr. Jag Waldrop [facility] 2021 SED RATE 19 mm/hr Normal <=30 [facility] Comment on above: Performed By: #### L IPID, BMP #### [facility] [address] [place] [address] Dr. Jag Waldrop PROF CHEM 8 (BAS METB)on Anion gap [Moles/Vol] 17.3 mmol/L Normal [facility] Comment on above: Performed By: #### L IPID, BMP #### [facility] [address] [place] [address] Dr. Jag Waldrop Calcium [Mass/Vol] 9.2 mg/dL Normal 8.5-10.1 [facility] Comment on above: Performed By: #### L IPID, BMP #### [facility] [address] [place] [address] Dr. Jag Waldrop Chloride [Moles/Vol] 108 mmol/L Critically high 98-107 [facility] Comment on above: Performed By: #### L IPID, BMP #### [facility] [address] [place] [address] Dr. Jag Waldrop CO2 [Moles/Vol] 20.0 mmol/L Critically low 21.0-32.0 [facility] Comment on above: Performed By: #### L IPID, BMP #### [facility] [address] [place] [address] Dr. Jag Waldrop Creatinine [Mass/Vol] 1.40 mg/dL Critically high 0.55-1.02 [facility] Comment on above: Performed By: #### L IPID, BMP #### [facility] [address] [place] [address] Dr. Jag Waldrop EGFR-AF TURKMEN 48 mL/min/1.73m2 Critically low >=60 [facility] Comment on above: Performed By: #### L IPID, BMP #### [facility] [address] [place] [address] Dr. Jag Waldrop EGFR-NON AF TURKMEN 40 mL/min/1.73m2 Critically low >=60 [facility] Comment on above: Performed By: #### L IPID, BMP #### [facility] [address] [place] [address] Dr. Jag Waldrop Glucose [Mass/Vol] 126 mg/dL Critically high 74-106 [facility] Comment on above: Performed By: #### L IPID, BMP #### [facility] [address] [place] [address] Dr. Jag Waldrop Potassium [Moles/Vol] 5.3 mmol/L Critically high 3.5-5.1 [facility] Comment on above: Performed By: #### L IPID, BMP #### [facility] [address] [place] [address] Dr. Jag Waldrop Sodium [Moles/Vol] 140 mmol/L Normal 136-145 [facility] Comment on above: Performed By: #### L IPID, BMP #### [facility] [address] [place] [address] Dr. Jag Waldrop Urea nitrogen [Mass/Vol] 31.0 mg/dL Critically high 7.0-18.0 [facility] Comment on above: Performed By: #### L IPID, BMP #### [facility] [address] [place] [address] Dr. Jag Waldrop Urea nitrogen/Creatinine [Mass ratio] 22.1 mg/mg Normal [facility] Comment on above: Performed By: #### L IPID, BMP #### [facility] [address] [place] [address] Dr. Jag Waldrop CBC AUTO DIFFon 01-23-2022 BASO # 0.1 103/ul Normal 0.0-0.1 [facility] Comment on above: Performed By: #### C BC #### [facility] [address] [place] [address] Dr. Jag Waldrop Basophils/100 WBC (Bld) 1.0 % Normal 0.2-2.0 [facility] Comment on above: Performed By: #### C BC #### [facility] [address] [place] [address] Dr. Jag Waldrop EO # 0.2 103/ul Normal 0.0-0.7 [facility] Comment on above: Performed By: #### C BC #### [facility] [address] [place] [address] Dr. Jga Waldrop Eosinophils/100 WBC (Bld) 3.3 % Normal 0.9-7.0 [facility] Comment on above: Performed By: #### C BC #### [facility] [address] [place] [address] Dr. Jag Waldrop Erythrocyte distribution width (RBC) [Ratio] 13.2 % Normal 11.0-15.0 [facility] Comment on above: Performed By: #### C BC #### [facility] [address] [place] [address] Dr. Jag Waldrop Hematocrit (Bld) [Volume fraction] 35.6 % Critically low 36.0-48.0 [facility] Comment on above: Performed By: #### C BC #### [facility] [address] [place] [address] Dr. Jag Waldrop Hemoglobin (Bld) [Mass/Vol] 10.6 g/dL Critically low 12.0-16.0 [facility] Comment on above: Performed By: #### C BC #### [facility] [address] [place] [address] Dr. Jag Waldrop IG # 0.01 10e3/ul Normal 0.00-0.03 [facility] Comment on above: Performed By: #### C BC #### [facility] [address] [place] [address] Dr. Jag Waldrop IG % 0.2 % Normal 0.0-0.5 [facility] Comment on above: Performed By: #### C BC #### [facility] [address] [place] [address] Dr. Jag Waldrop LYMPH # 1.7 103/ul Normal 1.2-3.8 [facility] Comment on above: Performed By: #### C BC #### [facility] [address] [place] [address] Dr. Jag Waldrop Lymphocytes/100 WBC (Bld) 35.4 % Normal 20.5-60.0 [facility] Comment on above: Performed By: #### C BC #### [facility] [address] [place] [address] Dr. Jag Waldrop MANUAL DIFF REQ NO Normal [facility] Comment on above: Performed By: #### C BC #### [facility] [address] [place] [address] Dr. Jag Waldrop MCH (RBC) [Entitic mass] 29.0 pg Normal 26.7-34.0 [facility] Comment on above: Performed By: #### C BC #### [facility] [address] [place] [address] Dr. Jag Waldrop MCHC (RBC) [Mass/Vol] 29.8 g/dL Critically low 29.9-35.2 [facility] Comment on above: Performed By: #### C BC #### [facility] [address] [place] [address] Dr. Jag Waldrop MCV (RBC) [Entitic vol] 97.3 fL Normal 81.0-99.0 [facility] Comment on above: Performed By: #### C BC #### [facility] [address] [place] [address] Dr. Jag Waldrop MONO # 0.3 103/ul Normal 0.3-0.8 [facility] Comment on above: Performed By: #### C BC #### [facility] [address] [place] [address] Dr. Jag Waldrop Monocytes/100 WBC (Bld) 6.8 % Normal 1.7-12.0 [facility] Comment on above: Performed By: #### C BC #### [facility] [address] [place] [address] Dr. Jag Waldrop NEUT # 2.6 103/ul Normal 1.4-6.5 [facility] Comment on above: Performed By: #### C BC #### [facility] [address] [place] [address] Dr. Jag Waldrop Neutrophils/100 WBC (Bld) 53.3 % Normal 43.0-75.0 [facility] Comment on above: Performed By: #### C BC #### [facility] [address] [place] [address] Dr. Jag Waldrop Platelet mean volume (Bld) [Entitic vol] 11.0 fL Normal 9.5-13.5 [facility] Comment on above: Performed By: #### C BC #### [facility] [address] [place] [address] Dr. Jag Waldrop PLT 230 103/ul Normal 150-450 [facility] Comment on above: Performed By: #### C BC #### [facility] [address] [place] [address] Dr. Jag Waldrop RBC 3.66 106/ul Critically low 4.20-5.40 [facility] Comment on above: Performed By: #### C BC #### [facility] [address] [place] [address] Dr. Jag Waldrop WBC 4.8 103/ul Normal 4.0-11.0 [facility] Comment on above: Performed By: #### C BC #### [facility] [address] [place] [address] Dr. Jag Waldrop FERRITINon 01-23-2022 Ferritin [Mass/Vol] 35.0 ng/mL Normal 8.0-252.0 [facility] Comment on above: Performed By: #### L IPID, BMP #### [facility] [address] [place] [address] Dr. Jag Waldrop IRONon 01-23-2022 Iron [Mass/Vol] 71.0 ug/dL Normal 50.0-170.0 [facility] Comment on above: Performed By: #### L IPID, BMP #### [facility] [address] [place] [address] Dr. Jag Waldrop LIPID PROFILEon 01-23-2022 CHOL-HDL RATIO NORM SEE BELOW Normal [facility] Comment on above: Result Comment: 3.3 - 4.4 LOW RISK 4.4 - 7.1 AVERAGE RISK 7.1 - 11.0 MODERATE RISK >11.0 HIGH RISK Performed By: #### L IPID, BMP #### [facility] [address] [place] [address] Dr. Jag Waldrop Cholesterol [Mass/Vol] 133 mg/dL Normal <=200 [facility] Comment on above: Performed By: #### L IPID, BMP #### [facility] [address] [address] [address] Jag Waldrop Cholesterol in HDL [Mass/Vol] 41 mg/dL Normal 40-60 [facility] Comment on above: Performed By: #### L IPID, BMP #### [facility] [address] [address] [address] Jag Waldrop Cholesterol in LDL [Mass/Vol] 70.8 mg/dL Normal [facility] Comment on above: Performed By: #### L IPID, BMP #### [facility] [address] [address] [address] Jag Waldrop Cholesterol.total/Chol esterol in HDL [Mass ratio] 3.2 {ratio} Normal [facility] Comment on above: Performed By: #### L IPID, BMP #### [facility] [address] [address] [address] Jag Waldrop HDL NORMAL > or = 60 mg/dl - LO W CARDIOVASCULAR RISK <40 mg/dl - HIGH CARDIOVASCULAR RISK Normal [facility] Comment on above: Performed By: #### L IPID, BMP #### [facility] [address] [place] [address] Dr. Jag Waldrop LDL CALC NORMAL SEE BELOW Normal [facility] Comment on above: Result Comment: <100 mg/dl OPTIMAL 100 - 129 mg/dl NEAR OR ABOVE OPTIMAL 130 - 159 mg/dl BORDERLINE HIGH 160 - 189 mg/dl HIGH >190 mg/dl VERY HIGH Performed By: #### L IPID, BMP #### [facility] [address] [address] [address] Jag Waldrop Triglyceride [Mass/Vol] 106 mg/dL Normal <=150 [facility] Comment on above: Performed By: #### L IPID, BMP #### [facility] [address] [place] [address] Dr. Jag Waldrop VLDL CALC 21.2 mg/dL Normal [facility] Comment on above: Performed By: #### L IPID, BMP #### [facility] [address] [address] [address] Jag Waldrop PROF CHEM 8 (BAS METB)on Anion gap [Moles/Vol] 18.2 mmol/L Normal [facility] Comment on above: Performed By: #### L IPID, BMP #### [facility] [address] [address] [address] Jag Waldrop Calcium [Mass/Vol] 9.3 mg/dL Normal 8.5-10.1 [facility] Comment on above: Performed By: #### L IPID, BMP #### [facility] [address] [address] [address] Jag Waldrop Chloride [Moles/Vol] 111 mmol/L Critically high 98-107 [facility] Comment on above: Performed By: #### L IPID, BMP #### [facility] [address] [place] [address] Dr. Jag Waldrop CO2 [Moles/Vol] 19.9 mmol/L Critically low 21.0-32.0 [facility] Comment on above: Performed By: #### L IPID, BMP #### [facility] [address] [address] [address] Jag Waldrop Creatinine [Mass/Vol] 1.27 mg/dL Critically high 0.55-1.02 [facility] Comment on above: Performed By: #### L IPID, BMP #### [facility] [address] [address] [address] Jag Waldorp EGFR-AF TURKMEN 54 mL/min/1.73m2 Critically low >=60 [facility] Comment on above: Performed By: #### L IPID, BMP #### [facility] [address] [address] [address] Jag Waldrop EGFR-NON AF TURKMEN 44 mL/min/1.73m2 Critically low >=60 [facility] Comment on above: Performed By: #### L IPID, BMP #### [facility] [address] [place] [address] Dr. Jag Waldrop Glucose [Mass/Vol] 129 mg/dL Critically high 74-106 [facility] Comment on above: Performed By: #### L IPID, BMP #### [facility] [address] [place] [address] Dr. Jag Waldrop Potassium [Moles/Vol] 6.1 mmol/L Critically high 3.5-5.1 [facility] Comment on above: Performed By: #### L IPID, BMP #### [facility] [address] [place] [address] Dr. Jag Waldrop Sodium [Moles/Vol] 142 mmol/L Normal 136-145 [facility] Comment on above: Performed By: #### L IPID, BMP #### [facility] [address] [place] [address] Dr. Jag Waldrop Urea nitrogen [Mass/Vol] 35.0 mg/dL Critically high 7.0-18.0 [facility] Comment on above: Performed By: #### L IPID, BMP #### [facility] [address] [place] [address] Dr. Jag Waldrop Urea nitrogen/Creatinine [Mass ratio] 27.6 mg/mg Normal [facility] Comment on above: Performed By: #### L IPID, BMP #### [facility] [address] [place] [address] Dr. Jag Waldrop VITAMIN B12on 01-23-2022 Cobalamin (Vitamin B12) [Mass/Vol] 267.0 pg/mL Normal 193.0-986.0 [facility] Comment on above: Performed By: #### L IPID, BMP #### [facility] [address] [place] [address] Dr. Jag Waldrop XR CSPINE 2_3 VIEWSon [...] KATHY LOBATO Date: 2022-01-12 09:39 Normal [facility] BNPon 12-21-2021 Natriuretic peptide B (Bld) [Mass/Vol] 283.0 pg/mL Normal <=900.0 [facility] Comment on above: Performed By: #### P OCGLUC #### [facility] [address] [place] [address] Dr. Jag Waldrop CBC AUTO DIFFon 12-21-2021 BASO # 0.1 103/ul Normal 0.0-0.1 [facility] Comment on above: Performed By: #### L IPID, BMP #### [facility] [address] [place] [address] Dr. Jag Waldrop Basophils/100 WBC (Bld) 0.8 % Normal 0.2-2.0 [facility] Comment on above: Performed By: #### L IPID, BMP #### [facility] [address] [place] [address] Dr. Jag Waldrop EO # 0.3 103/ul Normal 0.0-0.7 [facility] Comment on above: Performed By: #### L IPID, BMP #### [facility] [address] [place] [address] Dr. Jag Waldrop Eosinophils/100 WBC (Bld) 3.8 % Normal 0.9-7.0 [facility] Comment on above: Performed By: #### L IPID, BMP #### [facility] [address] [place] [address] Dr. Jag Waldrop Erythrocyte distribution width (RBC) [Ratio] 13.2 % Normal 11.0-15.0 [facility] Comment on above: Performed By: #### L IPID, BMP #### [facility] [address] [place] [address] Dr. Jag Waldrop Hematocrit (Bld) [Volume fraction] 34.8 % Critically low 36.0-48.0 [facility] Comment on above: Performed By: #### L IPID, BMP #### [facility] [address] [place] [address] Dr. Jag Waldrop Hemoglobin (Bld) [Mass/Vol] 10.6 g/dL Critically low 12.0-16.0 [facility] Comment on above: Performed By: #### L IPID, BMP #### [facility] [address] [place] [address] Dr. Jag Waldrop IG # 0.02 10e3/ul Normal 0.00-0.03 [facility] Comment on above: Performed By: #### L IPID, BMP #### [facility] [address] [place] [address] Dr. Jag Waldrop IG % 0.3 % Normal 0.0-0.5 [facility] Comment on above: Performed By: #### L IPID, BMP #### [facility] [address] [place] [address] Dr. Jag Waldrop LYMPH # 1.7 103/ul Normal 1.2-3.8 [facility] Comment on above: Performed By: #### L IPID, BMP #### [facility] [address] [place] [address] Dr. Jag Waldrop Lymphocytes/100 WBC (Bld) 23.8 % Normal 20.5-60.0 [facility] Comment on above: Performed By: #### L IPID, BMP #### [facility] [address] [place] [address] Dr. Jag Waldrop MANUAL DIFF REQ NO Normal [facility] Comment on above: Performed By: #### L IPID, BMP #### [facility] [address] [place] [address] Dr. Jag Waldrop MCH (RBC) [Entitic mass] 29.1 pg Normal 26.7-34.0 [facility] Comment on above: Performed By: #### L IPID, BMP #### [facility] [address] [place] [address] Dr. Jag Waldrop MCHC (RBC) [Mass/Vol] 30.5 g/dL Normal 29.9-35.2 [facility] Comment on above: Performed By: #### L IPID, BMP #### [facility] [address] [place] [address] Dr. Jag Waldrop MCV (RBC) [Entitic vol] 95.6 fL Normal 81.0-99.0 [facility] Comment on above: Performed By: #### L IPID, BMP #### [facility] [address] [place] [address] Dr. Jag Waldrop MONO # 0.7 103/ul Normal 0.3-0.8 [facility] Comment on above: Performed By: #### L IPID, BMP #### [facility] [address] [place] [address] Dr. Jag Waldrop Monocytes/100 WBC (Bld) 9.3 % Normal 1.7-12.0 [facility] Comment on above: Performed By: #### L IPID, BMP #### [facility] [address] [place] [address] Dr. Jag Waldrop NEUT # 4.4 103/ul Normal 1.4-6.5 [facility] Comment on above: Performed By: #### L IPID, BMP #### [facility] [address] [place] [address] Dr. Jag Waldrop Neutrophils/100 WBC (Bld) 62.0 % Normal 43.0-75.0 [facility] Comment on above: Performed By: #### L IPID, BMP #### [facility] [address] [place] [address] Dr. Jag Waldrop Platelet mean volume (Bld) [Entitic vol] 11.5 fL Normal 9.5-13.5 [facility] Comment on above: Performed By: #### L IPID, BMP #### [facility] [address] [place] [address] Dr. Jag Waldrop PLT 235 103/ul Normal 150-450 [facility] Comment on above: Performed By: #### L IPID, BMP #### [facility] [address] [place] [address] Dr. Jag Waldrop RBC 3.64 106/ul Critically low 4.20-5.40 [facility] Comment on above: Performed By: #### L IPID, BMP #### [facility] [address] [address] [address] Jag Waldrop WBC 7.1 103/ul Normal 4.0-11.0 [facility] Comment on above: Performed By: #### L IPID, BMP #### [facility] [address] [address] [address] Jag Waldrop CRPon 12-21-2021 CRP 1.1 mg/dL Critically high <=1.0 [facility] Comment on above: Performed By: #### B MP #### [facility] [address] [place] [address] Dr. Jag Waldrop [facility]on SARS-CoV-2 (COVID-19) RNA PRINCE+probe Ql (Unsp spec) Not detected Normal NOT DETECTED [facility] Comment on above: Result Comment: This test is not yet approved or cleared by the [place] FDA. When there are no FDA-approved or cleared tests available, and other criteria are met, FDA can make tests available under an emergency access mechanism called an Emergency Use Authorization (EUA). The EUA for this test is supported by the [place] of Health and Human Service's (HHS's) declaration [...] Performed By: #### L IPID, BMP #### [facility] [address] [place] [address] Dr. Jag Waldrop PROF CHEM 8 (BAS METB)on Anion gap [Moles/Vol] 13.3 mmol/L Normal [facility] Comment on above: Performed By: #### B MP #### [facility] [address] [address] [address] Jag Waldrop Calcium [Mass/Vol] 8.7 mg/dL Normal 8.5-10.1 [facility] Comment on above: Performed By: #### B MP #### [facility] [address] [address] [address] Jag Waldrop Chloride [Moles/Vol] 107 mmol/L Normal 98-107 [facility] Comment on above: Performed By: #### B MP #### [facility] [address] [place] [address] Dr. Jag Waldrop CO2 [Moles/Vol] 23.2 mmol/L Normal 21.0-32.0 [facility] Comment on above: Performed By: #### B MP #### [facility] [address] [place] [address] Dr. Jag Waldrop Creatinine [Mass/Vol] 1.55 mg/dL Critically high 0.55-1.02 [facility] Comment on above: Performed By: #### B MP #### [facility] [address] [place] [address] Dr. Jag Waldrop EGFR-AF TURKMEN 43 mL/min/1.73m2 Critically low >=60 [facility] Comment on above: Performed By: #### B MP #### [facility] [address] [place] [address] Dr. Jag Waldrop EGFR-NON AF TURKMEN 35 mL/min/1.73m2 Critically low >=60 [facility] Comment on above: Performed By: #### B MP #### [facility] [address] [place] [address] Dr. Jag Waldrop Glucose [Mass/Vol] 123 mg/dL Critically high 74-106 [facility] Comment on above: Performed By: #### B MP #### [facility] [address] [place] [address] Dr. Jag Waldrop Potassium [Moles/Vol] 4.5 mmol/L Normal 3.5-5.1 [facility] Comment on above: Performed By: #### B MP #### [facility] [address] [place] [address] Dr. Jag Waldrop Sodium [Moles/Vol] 139 mmol/L Normal 136-145 [facility] Comment on above: Performed By: #### B MP #### [facility] [address] [place] [address] Dr. Jag Waldrop Urea nitrogen [Mass/Vol] 36.0 mg/dL Critically high 7.0-18.0 [facility] Comment on above: Performed By: #### B MP #### [facility] [address] [place] [address] Dr. Jag Waldrop Urea nitrogen/Creatinine [Mass ratio] 23.2 mg/mg Normal [facility] Comment on above: Performed By: #### B MP #### [facility] [address] [place] [address] Dr. Jag Waldrop [facility] mm/hr Normal <=30 [facility] Comment on above: Performed By: #### S EDR #### [facility] [address] [place] [address] Dr. Jag Wladrop XR CHEST 2 Von 12-21-2021 XR CHEST [...] ALEX ALLEN Date: 2021-12-21 18:35 Normal [facility] OVA AND PARASITE EXAMINATION on 12-06-2021 Ova + Parasite Exam Final report Normal [facility] Comment on above: Result Comment: Thes e results were obtained using wet preparation(s) and trichrome stained smear. This test does not include testing for Cryptosporidium parvum, Cyclospora, or Microsporidia. Performed By: #### L IPID, BMP #### [facility] [address] [place] [address] Dr. Jag Waldrop Result 1 Comment Normal [facility] Comment on above: Result Comment: No o va, cysts, or parasites seen. . One negative specimen does not rule out the possibility of a parasitic infection. Performed By: #### L IPID, BMP #### [facility] [address] [place] [address] Dr. Jag Waldrop STOOL CULTUREon 12-05-2021 Campylobacter Culture Final report Normal [facility] Comment on above: Performed By: #### C XSTOOL #### [facility] [address] [place] [address] Dr. Jag Waldrop E coli Shiga Toxin EIA Negative Normal Negative [facility] Comment on above: Performed By: #### C XSTOOL #### [facility] [address] [place] [address] Dr. Jag Waldrop Result 1 Comment Normal [facility] Comment on above: Result Comment: No S almonella or Shigella recovered. Performed By: #### C XSTOOL #### [facility] [address] [place] [address] Dr. Jag Waldrop Result Comment: No C ampylobacter species isolated. Salmonella/Shigella Screen Final report Normal [facility] Comment on above: Performed By: #### C XSTOOL #### [facility] [address] [place] [address] Dr. Jag Waldrop GI PANEL (PCR)on 11-30-2021 Adenovirus F 40/41 Not detected Normal NOT DETECTED [facility] Comment on above: Performed By: #### E RUR #### [facility] [address] [place] [address] Dr. Jag Waldrop Astrovirus Not detected Normal NOT DETECTED [facility] Comment on above: Performed By: #### E RUR #### [facility] [address] [place] [address] Dr. Jag Waldrop C. Diff toxin A/B Detected Critically abnormal NOT DETECTED [facility] Comment on above: Performed By: #### E RUR #### [facility] [address] [place] [address] Dr. Jag Waldrop Campylobacter Not detected Normal NOT DETECTED [facility] Comment on above: Performed By: #### E RUR #### [facility] [address] [place] [address] Dr. Jag Waldrop Cryptosporidium Not detected Normal NOT DETECTED [facility] Comment on above: Performed By: #### E RUR #### [facility] [address] [place] [address] Dr. Jag Waldrop Cyclos. Cayetanensis Not detected Normal NOT DETECTED [facility] Comment on above: Performed By: #### E RUR #### [facility] [address] [place] [address] Dr. Jag Waldrop E. Coli O157 Not Applicable Normal Not Applicable [facility] Comment on above: Performed By: #### E RUR #### [facility] [address] [place] [address] Dr. Jag Waldrop E. histolytica Not detected Normal NOT DETECTED [facility] Comment on above: Performed By: #### E RUR #### [facility] [address] [place] [address] Dr. Jag Waldrop EAEC Not detected Normal NOT DETECTED [facility] Comment on above: Performed By: #### E RUR #### [facility] [address] [place] [address] Dr. Jag Waldrop EIEC Not detected Normal NOT DETECTED [facility] Comment on above: Performed By: #### E RUR #### [facility] [address] [place] [address] Dr. Jag Waldrop EPEC Not detected Normal NOT DETECTED [facility] Comment on above: Performed By: #### E RUR #### [facility] [address] [place] [address] Dr. Jag Waldrop ETEC Not detected Normal NOT DETECTED [facility] Comment on above: Performed By: #### E RUR #### [facility] [address] [place] [address] Dr. Jag Waldrop G. Lamblia Not detected Normal NOT DETECTED [facility] Comment on above: Performed By: #### E RUR #### [facility] [address] [address] [address] Jag TANG CONTROLS PASSED Normal [facility] Comment on above: Performed By: #### E RUR #### [facility] [address] [place] [address] Dr. Jag TEJEDA HEADER GI PANEL BACTERIA Normal T [facility] Comment on above: Performed By: #### E RUR #### [facility] [address] [address] [address] Jag SANCHEZ ECOLI GI PANEL DIARRHEAGEN IC E.COLI / SHIGELLA Normal [facility] Comment on above: Performed By: #### E RUR #### [facility] [address] [place] [address] Dr. Jag SANCHEZ INFO SEE BELOW Normal [facility] Comment on above: Result Comment: EAEC - Enteroaggregative E. Coli EPEC- Enteropathogenic E. Coli ETEC- Enterotoxigenic E. Coli lt/st STEC- Shigella-like toxin-producing E. Coli stx1/stx2 EIEC- Shigella/Enteroinvasive E. Coli Performed By: #### E RUR #### [facility] [address] [place] [address] Dr. Jag SANCHEZ PARASITES GI PANEL PARASITES Normal [facility] Comment on above: Performed By: #### E RUR #### [facility] [address] [place] [address] Dr. Jag SANCHEZ VIRUS GI PANEL VIRUSES Normal [facility] Comment on above: Performed By: #### E RUR #### [facility] [address] [place] [address] Dr. Jag Waldrop Norovirus GI/GII Not detected Normal NOT DETECTED [facility] Comment on above: Performed By: #### E RUR #### [facility] [address] [place] [address] Dr. Jag Waldrop P. Shigelloides Not detected Normal NOT DETECTED [facility] Comment on above: Performed By: #### E RUR #### [facility] [address] [place] [address] Dr. Jag Waldrop Rotavirus A Not detected Normal NOT DETECTED [facility] Comment on above: Performed By: #### E RUR #### [facility] [address] [place] [address] Dr. Jag Waldrop Salmonella Not detected Normal NOT DETECTED [facility] Comment on above: Performed By: #### E RUR #### [facility] [address] [place] [address] Dr. Jag Waldrop Sapovirus Not detected Normal NOT DETECTED [facility] Comment on above: Performed By: #### E RUR #### [facility] [address] [place] [address] Dr. Jag Waldrop STEC Not detected Normal NOT DETECTED [facility] Comment on above: Performed By: #### E RUR #### [facility] [address] [place] [address] Dr. Jag Waldrop Vibrio Not detected Normal NOT DETECTED [facility] Comment on above: Performed By: #### E RUR #### [facility] [address] [place] [address] Dr. Jag Waldrop Vibrio Cholera Not detected Normal NOT DETECTED [facility] Comment on above: Performed By: #### E RUR #### [facility] [address] [place] [address] Dr. Jag Waldrop Y. Enterocolitica Not detected Normal NOT DETECTED [facility] Comment on above: Performed By: #### E RUR #### [facility] [address] [place] [address] Dr. Jag Waldrop OCC BLD IMMUNO SCREENon 11-14 OCCULT BLOOD Negative Normal NEGATIVE [facility] Comment on above: Performed By: #### L IPID, BMP #### [facility] [address] [place] [address] Dr. Jag Waldrop PROF CHEM 8 (BAS METB)on Anion gap [Moles/Vol] 15.5 mmol/L Normal [facility] Comment on above: Performed By: #### P OCGLUC #### [facility] [address] [address] [address] Jag Walrdop Calcium [Mass/Vol] 9.1 mg/dL Normal 8.5-10.1 [facility] Comment on above: Performed By: #### P OCGLUC #### [facility] [address] [address] [address] Jag Waldrop Chloride [Moles/Vol] 106 mmol/L Normal 98-107 [facility] Comment on above: Performed By: #### P OCGLUC #### [facility] [address] [address] [address] Jag Waldrop CO2 [Moles/Vol] 25.4 mmol/L Normal 21.0-32.0 [facility] Comment on above: Performed By: #### P OCGLUC #### [facility] [address] [address] [address] Jag Waldrop Creatinine [Mass/Vol] 1.18 mg/dL Critically high 0.55-1.02 [facility] Comment on above: Performed By: #### P OCGLUC #### [facility] [address] [address] [address] Jag Waldrop EGFR-AF TURKMEN 59 mL/min/1.73m2 Critically low >=60 [facility] Comment on above: Performed By: #### P OCGLUC #### [facility] [address] [address] [address] Jag Waldrop EGFR-NON AF TURKMEN 48 mL/min/1.73m2 Critically low >=60 [facility] Comment on above: Performed By: #### P OCGLUC #### [facility] [address] [address] [address] Jag Waldrop Glucose [Mass/Vol] 141 mg/dL Critically high 74-106 [facility] Comment on above: Performed By: #### P OCGLUC #### [facility] [address] [address] [address] Jag Waldrop Potassium [Moles/Vol] 3.9 mmol/L Normal 3.5-5.1 [facility] Comment on above: Performed By: #### P OCGLUC #### [facility] [address] [address] [address] Jag Waldrop Sodium [Moles/Vol] 143 mmol/L Normal 136-145 [facility] Comment on above: Performed By: #### P OCGLUC #### [facility] [address] [address] [address] Jag Waldrop Urea nitrogen [Mass/Vol] 22.0 mg/dL Critically high 7.0-18.0 [facility] Comment on above: Performed By: #### P OCGLUC #### [facility] [address] [address] [address] Jag Waldrop Urea nitrogen/Creatinine [Mass ratio] 18.6 mg/mg Normal [facility] Comment on above: Performed By: #### P OCGLUC #### [facility] [address] [place] [address] Dr. Jag Waldrop XR KUB 1 VIEWon [...] ALEX ALLEN Date: 2021-10-29 09:01 Normal [facility] CULTURE URINEon 10-28-2021 CULTURE URINE Culture Observations : LIGHT GROWTH OF MIXED GENITAL SANDEE. NO POTENTIAL PATHOGENS SEEN. Normal [facility] Comment on above: Performed By: #### E RUR #### [facility] [address] [address] [address] Jag Waldrop GLYCOHEMOGLOBIN A1Con 2021 ADA RECOMMENDATION SEE BELOW Normal [facility] Comment on above: Result Comment: ADA RECOMMENDED LIMIT 4.0 - 6.0 ADA THERAPEUTIC TARGET < 7.0 ACTION SUGGESTED > 7.0 Performed By: #### E RUR #### [facility] [address] [address] [address] Jag Waldrop Glucose [Mass/Vol] 157 mg/dL Normal [facility] Comment on above: Performed By: #### E RUR #### [facility] [address] [address] [address] Jag Waldrop HbA1c (Bld) [Mass fraction] 7.1 % Critically high 4.5-6.2 [facility] Comment on above: Performed By: #### E RUR #### [facility] [address] [address] [address] Jag Waldrop LIPID PROFILEon 10-28-2021 CHOL-HDL RATIO NORM SEE BELOW Normal [facility] Comment on above: Result Comment: 3.3 - 4.4 LOW RISK 4.4 - 7.1 AVERAGE RISK 7.1 - 11.0 MODERATE RISK >11.0 HIGH RISK Performed By: #### P OCGLUC #### [facility] [address] [place] [address] Dr. Jag Waldrop Cholesterol [Mass/Vol] 150 mg/dL Normal <=200 [facility] Comment on above: Performed By: #### P OCGLUC #### [facility] [address] [place] [address] Dr. Jag Waldrop Cholesterol in HDL [Mass/Vol] 39 mg/dL Critically low 40-60 [facility] Comment on above: Performed By: #### P OCGLUC #### [facility] [address] [address] [address] Jag Waldrop Cholesterol in LDL [Mass/Vol] 82.6 mg/dL Normal [facility] Comment on above: Performed By: #### P OCGLUC #### [facility] [address] [address] [address] Jag Waldrop Cholesterol.total/Chol esterol in HDL [Mass ratio] 3.8 {ratio} Normal [facility] Comment on above: Performed By: #### P OCGLUC #### [facility] [address] [place] [address] Dr. Jag Waldrop HDL NORMAL > or = 60 mg/dl - LO W CARDIOVASCULAR RISK <40 mg/dl - HIGH CARDIOVASCULAR RISK Normal [facility] Comment on above: Performed By: #### P OCGLUC #### [facility] [address] [address] [address] Jag Waldrop LDL CALC NORMAL SEE BELOW Normal [facility] Comment on above: Result Comment: <100 mg/dl OPTIMAL 100 - 129 mg/dl NEAR OR ABOVE OPTIMAL 130 - 159 mg/dl BORDERLINE HIGH 160 - 189 mg/dl HIGH >190 mg/dl VERY HIGH Performed By: #### P OCGLUC #### [facility] [address] [address] [address] Jag Waldrop Triglyceride [Mass/Vol] 142 mg/dL Normal <=150 [facility] Comment on above: Performed By: #### P OCGLUC #### [facility] [address] [address] [address] Jag Waldrop VLDL CALC 28.4 mg/dL Normal [facility] Comment on above: Performed By: #### P OCGLUC #### [facility] [address] [address] [address] Jag Waldrop PROF CHEM 8 (BAS METB)on Anion gap [Moles/Vol] 16.0 mmol/L Normal [facility] Comment on above: Performed By: #### P OCGLUC #### [facility] [address] [address] [address] Jag Waldrop Calcium [Mass/Vol] 8.7 mg/dL Normal 8.5-10.1 [facility] Comment on above: Performed By: #### P OCGLUC #### [facility] [address] [address] [address] Jag Waldrop Chloride [Moles/Vol] 108 mmol/L Critically high 98-107 [facility] Comment on above: Performed By: #### P OCGLUC #### [facility] [address] [address] [address] Jag Waldrop CO2 [Moles/Vol] 22.1 mmol/L Normal 21.0-32.0 [facility] Comment on above: Performed By: #### P OCGLUC #### [facility] [address] [place] [address] Dr. Jag Waldrop Creatinine [Mass/Vol] 1.72 mg/dL Critically high 0.55-1.02 [facility] Comment on above: Performed By: #### P OCGLUC #### [facility] [address] [place] [address] [address] Jag Waldrop EGFR-AF TURKMEN 38 mL/min/1.73m2 Critically low >=60 [facility] Comment on above: Performed By: #### P OCGLUC #### [facility] [address] [place] [address] [address] Jag Waldrop EGFR-NON AF TURKMEN 31 mL/min/1.73m2 Critically low >=60 [facility] Comment on above: Performed By: #### P OCGLUC #### [facility] [address] [place] [address] [address] Jag Waldrop Glucose [Mass/Vol] 144 mg/dL Critically high 74-106 [facility] Comment on above: Performed By: #### P OCGLUC #### [facility] [address] [place] [address] [address] Jag Waldrop Potassium [Moles/Vol] 5.1 mmol/L Normal 3.5-5.1 [facility] Comment on above: Performed By: #### P OCGLUC #### [facility] [address] [place] [address] [address] Jag Waldrop Sodium [Moles/Vol] 141 mmol/L Normal 136-145 [facility] Comment on above: Performed By: #### P OCGLUC #### [facility] [address] [place] [address] [address] Jag Waldrop Urea nitrogen [Mass/Vol] 41.0 mg/dL Critically high 7.0-18.0 [facility] Comment on above: Performed By: #### P OCGLUC #### [facility] [address] [place] [address] [address] Jag Waldrop Urea nitrogen/Creatinine [Mass ratio] 23.8 mg/mg Normal [facility] Comment on above: Performed By: #### P OCGLUC #### [facility] [address] [place] [address] Dr. Jag Waldrop UA (CLEAN/CATCH) ROADS SUPERINTENDENT/MICRO I F IND.on 10-28-2021 Bilirubin Ql (U) Negative Normal NEGATIVE [facility] Comment on above: Performed By: #### L IPID, BMP #### [facility] [address] [place] [address] Dr. Jag Waldrop Clarity (U) SL CLOUDY Abnormal CLEAR [facility] Comment on above: Performed By: #### L IPID, BMP #### [facility] [address] [place] [address] Dr. Jag Waldrop Color (U) LT. YELLOW Normal YELLOW [facility] Comment on above: Performed By: #### L IPID, BMP #### [facility] [address] [place] [address] Dr. Jag Waldrop Glucose Ql (U) Negative Normal NEGATIVE [facility] Comment on above: Performed By: #### L IPID, BMP #### [facility] [address] [place] [address] Dr. Jag Waldrop Hemoglobin Ql (U) TRACE-INTACT Abnormal NEGATIVE [facility] Comment on above: Performed By: #### L IPID, BMP #### [facility] [address] [place] [address] Dr. Jag Waldrop Ketones Ql (U) Negative Normal NEGATIVE [facility] Comment on above: Performed By: #### L IPID, BMP #### [facility] [address] [place] [address] Dr. Jag Waldrop LEUKOCYTES SMALL Abnormal NEGATIVE [facility] Comment on above: Performed By: #### L IPID, BMP #### [facility] [address] [place] [address] Dr. Jag Waldrop Nitrite Ql (U) Negative Normal NEGATIVE [facility] Comment on above: Performed By: #### L IPID, BMP #### [facility] [address] [place] [address] Dr. Jag Waldrop pH (U) 5.5 [pH] Normal 5-9 [facility] Comment on above: Performed By: #### L IPID, BMP #### [facility] [address] [place] [address] Dr. Jag Waldrop SPEC GRAVITY 1.020 Normal 1.005-<=1.0 [facility] Comment on above: Performed By: #### L IPID, BMP #### [facility] [address] [place] [address] Dr. Jag Waldrop UA PROTEIN Negative Normal NEGATIVE/ TRACE [facility] Comment on above: Performed By: #### L IPID, BMP #### [facility] [address] [place] [address] Dr. Jag Waldrop UR MICRO IND INDICATED Normal [facility] Comment on above: Performed By: #### L IPID, BMP #### [facility] [address] [place] [address] Dr. Jag Waldrop Urobilinogen Qn (U) 0.2 {Chris'U}/dL Normal 0.2 - 1. 0 [facility] Comment on above: Performed By: #### L IPID, BMP #### [facility] [address] [place] [address] Dr. Jag Waldrop URINE MICROSCOPIC ONLYon BACTERIA TRACE Abnormal NONE SEEN [facility] Comment on above: Performed By: #### L IPID, BMP #### [facility] [address] [place] [address] Dr. Jag Waldrop Bacteria identified Cx Nom (U) INDICATED Normal [facility] Comment on above: Performed By: #### L IPID, BMP #### [facility] [address] [place] [address] Dr. Jag Waldrop CAST NONE SEEN Normal NONE SEEN [facility] Comment on above: Performed By: #### L IPID, BMP #### [facility] [address] [place] [address] Dr. Jag Waldrop Crystals LM Nom (Urine sed) NONE SEEN Normal NONE SEEN [facility] Comment on above: Performed By: #### L IPID, BMP #### [facility] [address] [place] [address] Dr. Jag Waldrop Epithelial cells LM Ql (Urine sed) RARE Normal NONE SEEN /RARE [facility] Comment on above: Performed By: #### L IPID, BMP #### [facility] [address] [place] [address] Dr. Jag Waldrop MUCOUS TRACE Abnormal NONE SEEN [facility] Comment on above: Performed By: #### L IPID, BMP #### [facility] [address] [place] [address] Dr. Jag Waldrop RBC 0-2 Normal 0-2 [facility] Comment on above: Performed By: #### L IPID, BMP #### [facility] [address] [place] [address] Dr. Jag Waldrop WBC 2-5 Abnormal NONE SEEN [facility] Comment on above: Performed By: #### L IPID, BMP #### [facility] [address] [place] [address] Dr. Jag Waldrop BNPon 10-02-2021 Natriuretic peptide B (Bld) [Mass/Vol] 52.0 pg/mL Normal <=900.0 [facility] Comment on above: Performed By: #### L IPID, BMP #### [facility] [address] [place] [address] Dr. Jag Waldrop CBC AUTO DIFFon 10-02-2021 BASO # 0.1 103/ul Normal 0.0-0.1 [facility] Comment on above: Performed By: #### P OCGLUC #### [facility] [address] [place] [address] Dr. Jag Waldrop Basophils/100 WBC (Bld) 0.8 % Normal 0.2-2.0 [facility] Comment on above: Performed By: #### P OCGLUC #### [facility] [address] [place] [address] Dr. Jag Waldrop EO # 0.2 103/ul Normal 0.0-0.7 [facility] Comment on above: Performed By: #### P OCGLUC #### [facility] [address] [place] [address] Dr. Jag Waldrop Eosinophils/100 WBC (Bld) 3.0 % Normal 0.9-7.0 [facility] Comment on above: Performed By: #### P OCGLUC #### [facility] [address] [place] [address] Dr. Jag Waldrop Erythrocyte distribution width (RBC) [Ratio] 14.2 % Normal 11.0-15.0 [facility] Comment on above: Performed By: #### P OCGLUC #### [facility] [address] [place] [address] Dr. Jag Waldrop Hematocrit (Bld) [Volume fraction] 35.9 % Critically low 36.0-48.0 [facility] Comment on above: Performed By: #### P OCGLUC #### [facility] [address] [place] [address] Dr. Jag Waldrop Hemoglobin (Bld) [Mass/Vol] 11.0 g/dL Critically low 12.0-16.0 [facility] Comment on above: Performed By: #### P OCGLUC #### [facility] [address] [place] [address] Dr. Jag Waldrop IG # 0.03 10e3/ul Normal 0.00-0.03 [facility] Comment on above: Performed By: #### P OCGLUC #### [facility] [address] [place] [address] Dr. Jag Waldrop IG % 0.4 % Normal 0.0-0.5 [facility] Comment on above: Performed By: #### P OCGLUC #### [facility] [address] [place] [address] Dr. Jag Waldrop LYMPH # 2.8 103/ul Normal 1.2-3.8 [facility] Comment on above: Performed By: #### P OCGLUC #### [facility] [address] [place] [address] Dr. Jag Waldrop Lymphocytes/100 WBC (Bld) 37.9 % Normal 20.5-60.0 [facility] Comment on above: Performed By: #### P OCGLUC #### [facility] [address] [place] [address] Dr. Jag Waldrop MANUAL DIFF REQ NO Normal [facility] Comment on above: Performed By: #### P OCGLUC #### [facility] [address] [place] [address] Dr. Jag Waldrop MCH (RBC) [Entitic mass] 28.7 pg Normal 26.7-34.0 [facility] Comment on above: Performed By: #### P OCGLUC #### [facility] [address] [place] [address] Dr. Jag Waldrop MCHC (RBC) [Mass/Vol] 30.6 g/dL Normal 29.9-35.2 [facility] Comment on above: Performed By: #### P OCGLUC #### [facility] [address] [place] [address] Dr. Jag Waldrop MCV (RBC) [Entitic vol] 93.7 fL Normal 81.0-99.0 [facility] Comment on above: Performed By: #### P OCGLUC #### [facility] [address] [place] [address] Dr. Jag Waldrop MONO # 0.5 103/ul Normal 0.3-0.8 [facility] Comment on above: Performed By: #### P OCGLUC #### [facility] [address] [place] [address] Dr. Jag Waldrop Monocytes/100 WBC (Bld) 7.4 % Normal 1.7-12.0 [facility] Comment on above: Performed By: #### P OCGLUC #### [facility] [address] [place] [address] Dr. Jag Waldrop NEUT # 3.7 103/ul Normal 1.4-6.5 [facility] Comment on above: Performed By: #### P OCGLUC #### [facility] [address] [place] [address] Dr. Jag Waldrop Neutrophils/100 WBC (Bld) 50.5 % Normal 43.0-75.0 [facility] Comment on above: Performed By: #### P OCGLUC #### [facility] [address] [place] [address] Dr. Jag Waldrop Platelet mean volume (Bld) [Entitic vol] 10.2 fL Normal 9.5-13.5 [facility] Comment on above: Performed By: #### P OCGLUC #### [facility] [address] [place] [address] [address] Jag Waldrop PLT 261 103/ul Normal 150-450 [facility] Comment on above: Performed By: #### P OCGLUC #### [facility] [address] [place] [address] [address] Jag Waldrop RBC 3.83 106/ul Critically low 4.20-5.40 [facility] Comment on above: Performed By: #### P OCGLUC #### [facility] [address] [place] [address] [address] Jag Waldrop WBC 7.3 103/ul Normal 4.0-11.0 [facility] Comment on above: Performed By: #### P OCGLUC #### [facility] [address] [place] [address] Dr. Jag Waldrop POINT OF CARE GLUCOSEon 09-14 Glucose [Mass/Vol] 156 mg/dL Critically high 74-106 [facility] Comment on above: Performed By: #### P OCGLUC #### [facility] [address] [place] [address] Dr. Jag Waldrop Glucose [Mass/Vol] 304 mg/dL Critically high 74-106 [facility] Comment on above: Performed By: #### P OCGLUC #### [facility] [address] [place] [address] Dr. Jag Waldrop Glucose [Mass/Vol] 77 mg/dL Normal 74-106 [facility] Comment on above: Performed By: #### E RUR #### [facility] [address] [place] [address] [address] Jag Waldrop Glucose [Mass/Vol] 136 mg/dL Critically high 74-106 [facility] Comment on above: Performed By: #### E RUR #### [facility] [address] [place] [address] Dr. Jag Waldrop Glucose [Mass/Vol] 73 mg/dL Critically low 74-106 [facility] Comment on above: Performed By: #### E RUR #### [facility] [address] [place] [address] [address] Jag Waldrop PROF CHEM 8 (BAS METB)on Anion gap [Moles/Vol] 15.5 mmol/L Normal [facility] Comment on above: Performed By: #### P OCGLUC #### [facility] [address] [place] [address] [address] Jag Waldrop Calcium [Mass/Vol] 8.3 mg/dL Critically low 8.5-10.1 [facility] Comment on above: Performed By: #### P OCGLUC #### [facility] [address] [place] [address] Dr. Jag Waldrop Chloride [Moles/Vol] 108 mmol/L Critically high 98-107 [facility] Comment on above: Performed By: #### P OCGLUC #### [facility] [address] [place] [address] Dr. Jag Waldrop CO2 [Moles/Vol] 18.9 mmol/L Critically low 21.0-32.0 [facility] Comment on above: Performed By: #### P OCGLUC #### [facility] [address] [place] [address] Dr. Jag Waldrop Creatinine [Mass/Vol] 1.43 mg/dL Critically high 0.55-1.02 [facility] Comment on above: Performed By: #### P OCGLUC #### [facility] [address] [place] [address] Dr. Jag Waldrop EGFR-AF TURKMEN 47 mL/min/1.73m2 Critically low >=60 [facility] Comment on above: Performed By: #### P OCGLUC #### [facility] [address] [place] [address] Dr. Jag Waldorp EGFR-NON AF TURKMEN 39 mL/min/1.73m2 Critically low >=60 [facility] Comment on above: Performed By: #### P OCGLUC #### [facility] [address] [place] [address] Dr. Jag Waldrop Glucose [Mass/Vol] 269 mg/dL Critically high 74-106 [facility] Comment on above: Performed By: #### P OCGLUC #### [facility] [address] [place] [address] Dr. Jag Waldrop Potassium [Moles/Vol] 5.4 mmol/L Critically high 3.5-5.1 [facility] Comment on above: Performed By: #### P OCGLUC #### [facility] [address] [place] [address] Dr. Jag Waldrop Sodium [Moles/Vol] 137 mmol/L Normal 136-145 [facility] Comment on above: Performed By: #### P OCGLUC #### [facility] [address] [place] [address] Dr. Jag Waldrop Urea nitrogen [Mass/Vol] 40.0 mg/dL Critically high 7.0-18.0 [facility] Comment on above: Performed By: #### P OCGLUC #### [facility] [address] [place] [address] Dr. Jag Waldrop Urea nitrogen/Creatinine [Mass ratio] 28.0 mg/mg Normal [facility] Comment on above: Performed By: #### P OCGLUC #### [facility] [address] [place] [address] Dr. Jag Waldrop Anion gap [Moles/Vol] 14.0 mmol/L Normal [facility] Comment on above: Performed By: #### E RUR #### [facility] [address] [place] [address] Dr. Jag Waldrop Calcium [Mass/Vol] 8.9 mg/dL Normal 8.5-10.1 [facility] Comment on above: Performed By: #### E RUR #### [facility] [address] [place] [address] Dr. Jag Waldrop Chloride [Moles/Vol] 110 mmol/L Critically high 98-107 [facility] Comment on above: Performed By: #### E RUR #### [facility] [address] [place] [address] Dr. Jag Waldrop CO2 [Moles/Vol] 21.1 mmol/L Normal 21.0-32.0 [facility] Comment on above: Performed By: #### E RUR #### [facility] [address] [place] [address] Dr. Jag Waldrop Creatinine [Mass/Vol] 1.32 mg/dL Critically high 0.55-1.02 [facility] Comment on above: Performed By: #### E RUR #### [facility] [address] [place] [address] [address] Jag Waldrop EGFR-AF TURKMEN 52 mL/min/1.73m2 Critically low >=60 [facility] Comment on above: Performed By: #### E RUR #### [facility] [address] [place] [address] Dr. Jag Waldrop EGFR-NON AF TURKMEN 43 mL/min/1.73m2 Critically low >=60 [facility] Comment on above: Performed By: #### E RUR #### [facility] [address] [place] [address] Dr. Jag Waldrop Glucose [Mass/Vol] 79 mg/dL Normal 74-106 [facility] Comment on above: Performed By: #### E RUR #### [facility] [address] [place] [address] Dr. Jag Waldrop Potassium [Moles/Vol] 6.1 mmol/L Critically high 3.5-5.1 [facility] Comment on above: Result Comment: Test Repeated. Critical Value Verified Performed By: #### E RUR #### [facility] [address] [place] [address] Dr. Jag Waldrop Sodium [Moles/Vol] 140 mmol/L Normal 136-145 [facility] Comment on above: Performed By: #### E RUR #### [facility] [address] [place] [address] Dr. Jag Waldrop Urea nitrogen [Mass/Vol] 45.0 mg/dL Critically high 7.0-18.0 [facility] Comment on above: Performed By: #### E RUR #### [facility] [address] [place] [address] Dr. Jag Waldrop Urea nitrogen/Creatinine [Mass ratio] 34.1 mg/mg Normal [facility] Comment on above: Performed By: #### E RUR #### [facility] [address] [place], [place] [address] Dr. Jag Waldrop BASIC METABOLIC PANELon 08-14 Calcium [Mass/Vol] 8.9 mg/dL Normal 8.6-10.3 [facility] Comment on above: Order Comment: No: D o not add to previous draw Performed By: #### 5 [id number], [id number] #### [facility] [address] [place] [address], [place] Chloride [Moles/Vol] 105 mmol/L Normal 98-107 [facility] Comment on above: Order Comment: No: D o not add to previous draw Performed By: #### 5 610, [id number] #### [facility] [address] [place] [address], [place] CO2 [Moles/Vol] 26 mmol/L Normal 21-31 [facility] Comment on above: Order Comment: No: D o not add to previous draw Performed By: #### 5 [id number], [id number] #### [facility] [address] [place] [address], [place] Creatinine [Mass/Vol] 0.99 mg/dL Normal 0.60-1.20 [facility] Comment on above: Order Comment: No: D o not add to previous draw Performed By: #### 5 [id number], [id number] #### [facility] [address] [place] [address], [place] GFR/1.73 sq M predicted among blacks MDRD (S/P/Bld) [Vol rate/Area] mL/min/{1.73_m2} Normal >60 [facility] Comment on above: Order Comment: No: D o not add to previous draw Performed By: #### 5 610, [id number] #### [facility] [address] [place] [address], [place] GFR/1.73 sq M predicted among non-blacks MDRD (S/P/Bld) [Vol rate/Area] mL/min/{1.73_m2} Normal >60 [facility] Comment on above: Order Comment: No: D o not add to previous draw Performed By: #### 5 610, [id number] #### [facility] [address] [place] [address], [place] Glucose [Mass/Vol] 145 mg/dL High 70-100 [facility] Comment on above: Order Comment: No: D o not add to previous draw Performed By: #### 5 610, [id number] #### [facility] [address] [place] [address], [facility] Potassium [Moles/Vol] 3.7 mmol/L Normal 3.5-5.1 [facility] Comment on above: Order Comment: No: D o not add to previous draw Performed By: #### 5 610, [id number] #### [facility] [address] [place] [address], [facility] Sodium [Moles/Vol] 139 mmol/L Normal 136-145 [facility] Comment on above: Order Comment: No: D o not add to previous draw Performed By: #### 5 610, 72601 #### [facility] [address] [place] [address], [facility] Urea nitrogen [Mass/Vol] 26 mg/dL High 7-25 [facility] Comment on above: Order Comment: No: D o not add to previous draw Performed By: #### 5 610, [id number] #### [facility] [address] [place] [address], [place] CBC W/DIFFon 08-25-2018 ABS BASOPHILS 0.0 10*3/uL Normal 0.0-0.2 [facility] Comment on above: Order Comment: No: D o not add to previous draw Performed By: #### 5 610, [id number] #### [facility] [address] [place] [address], [facility] ABS IMM GRANS 0.0 10*3/uL Normal 0.0-0.2 [facility] Comment on above: Order Comment: No: D o not add to previous draw Performed By: #### 5 [id number], [id number] #### [facility] [address] [place] [address], [facility] ABS NEUTROPHILS 2.3 10*3/uL Normal 1.6-7.6 [facility] Comment on above: Order Comment: No: D o not add to previous draw Performed By: #### 5 [id number], 65601 #### [facility] [address] [place] [address], [facility] Basophils/100 WBC (Bld) 0.3 % Normal 0.0-1.0 [facility] Comment on above: Order Comment: No: D o not add to previous draw Performed By: #### 5 [id number], [id number] #### [facility] [address] [facility] [place] [place] [address], [facility] Eosinophils (Bld) [#/Vol] 0.0 10*3/uL Normal 0.0-0.5 [facility] Comment on above: Order Comment: No: D o not add to previous draw Performed By: #### 5 [id number], [id number] #### [facility] [address] [facility] [place] [place] [address], [facility] Eosinophils/100 WBC (Bld) 0.0 % Normal 0.0-6.0 [facility] Comment on above: Order Comment: No: D o not add to previous draw Performed By: #### 5 [id number], [id number] #### [facility] [address] [facility] [place] [address], [facility] Erythrocyte distribution width (RBC) [Ratio] 13.3 % Normal 11.5-15.0 [facility] Comment on above: Order Comment: No: D o not add to previous draw Performed By: #### 5 610, [id number] #### [facility] [address] [place] [id number], [facility] Hematocrit (Bld) [Volume fraction] 37.7 % Normal 36.0-45.0 [facility] Comment on above: Order Comment: No: D o not add to previous draw Performed By: #### 5 [id number], [id number] #### [facility] [address] [place] [address], [facility] Hemoglobin (Bld) [Mass/Vol] 12.1 g/dL Normal 12.0-15.0 [facility] Comment on above: Order Comment: No: D o not add to previous draw Performed By: #### 5 [id number], 12090 #### [facility] [address] [place] [id number], [facility] IMMATURE GRANS 0.2 % Normal 0.0-1.0 [facility] Comment on above: Order Comment: No: D o not add to previous draw Performed By: #### 5 [id number], [id number] #### [facility] [address] [place] [address], [facility] Lymphocytes (Bld) [#/Vol] 3.0 10*3/uL Normal 1.2-4.0 [facility] Comment on above: Order Comment: No: D o not add to previous draw Performed By: #### 5 [id number], [id number] #### [facility] [address] [place] [id number], [facility] Lymphocytes/100 WBC (Bld) 52.0 % High 20.0-45.0 [facility] Comment on above: Order Comment: No: D o not add to previous draw Performed By: #### 5 [id number], 72669 #### [facility] [address] [place] [address], [place] MCH (RBC) [Entitic mass] 28.7 pg Normal 27.0-33.0 [facility] Comment on above: Order Comment: No: D o not add to previous draw Performed By: #### 5 6100, [id number] #### [facility] [address] [place] [address], [facility] MCHC (RBC) [Mass/Vol] 32.1 g/dL Normal 32.0-35.0 [facility] Comment on above: Order Comment: No: D o not add to previous draw Performed By: #### 5 6100, [id number] #### [facility] [address] [place] [address], [facility] MCV (RBC) [Entitic vol] 89.3 fL Normal 82.0-98.0 [facility] Comment on above: Order Comment: No: D o not add to previous draw Performed By: #### 5 6100, 90237 #### [facility] [address] [place] [address], [facility] Monocytes (Bld) [#/Vol] 0.5 10*3/uL Normal 0.1-1.0 [facility] Comment on above: Order Comment: No: D o not add to previous draw Performed By: #### 5 6100, 78324 #### [facility] [address] [facility] [place] [address], [facility] MONOS 7.9 % Normal 5.0-12.0 [facility] Comment on above: Order Comment: No: D o not add to previous draw Performed By: #### 5 6100, 23113 #### [facility] [address] [place] [address], [facility] Neutrophils/100 WBC (Bld) 39.6 % Low 40.0-72.0 [facility] Comment on above: Order Comment: No: D o not add to previous draw Performed By: #### 5 610, 79857 #### [facility] [address] [place] [address], [facility] Nucleated RBC/100 WBC (Bld) [Ratio] 0 % Normal 0-0 [facility] Comment on above: Order Comment: No: D o not add to previous draw Performed By: #### 5 610, 13896 #### [facility] [address] [place] [id number], [facility] PLAT CNT 236 10*3/uL Normal 150-400 [facility] Comment on above: Order Comment: No: D o not add to previous draw Performed By: #### 5 610, 22045 #### [facility] [address] [place] [address], [facility] RBC (Bld) [#/Vol] 4.22 10*6/uL Normal 3.80-5.00 [facility] Comment on above: Order Comment: No: D o not add to previous draw Performed By: #### 5 610, 61427 #### [facility] [address] [place] [id number], [facility] WBC (Bld) [#/Vol] 5.85 10*3/uL Normal 4.00-10.60 [facility] Comment on above: Order Comment: No: D o not add to previous draw Performed By: #### 5 610, 10548 #### [facility] [address] [place] [address], [facility] POC GLUCOSE LABon 08-25-2018 Glucose [Mass/Vol] 180 mg/dL High 70-100 [facility] Comment on above: Performed By: #### 5 610, 47357 #### [facility] [address] [place] [address], [facility] Glucose [Mass/Vol] 129 mg/dL High 70-100 [facility] Comment on above: Performed By: #### 5 610, 59894 #### [facility] [address] [place] [address], [place] Glucose [Mass/Vol] 132 mg/dL High 70-100 [facility] Comment on above: Performed By: #### 5 0608 #### [facility] [address] UFH HEPARIN ASSAYon 08-26-19 19 UNFRACTIONATED HEPARIN <0.10 Critically low 0.30-0.70 [facility] Comment on above: Result Comment: Berkey roxaban and Apixaban will interfere with the anti Xa assay used to monitor UFH and LMWH. RESULTS CHECKED AND CALLED. ACCURATELY READ BACK BY JANENE ZAMARRIPA RN AT 0554 Performed By: #### 5 6101, 49813 #### [facility] [address] BASIC METABOLIC PANELon 08-14 Calcium [Mass/Vol] 8.5 mg/dL Low 8.6-10.3 [facility] Comment on above: Order Comment: No: D o not add to previous draw Performed By: #### 5 0608 #### [facility] [address] [place] [address], [facility] Chloride [Moles/Vol] 104 mmol/L Normal 98-107 [facility] Comment on above: Order Comment: No: D o not add to previous draw Performed By: #### 5 0608 #### [facility] [address] [place] [address], [facility] CO2 [Moles/Vol] 27 mmol/L Normal 21-31 [facility] Comment on above: Order Comment: No: D o not add to previous draw Performed By: #### 5 0608 #### [facility] [address] [facility] [place] [address], [facility] Creatinine [Mass/Vol] 1.13 mg/dL Normal 0.60-1.20 [facility] Comment on above: Order Comment: No: D o not add to previous draw Performed By: #### 5 0608 #### [facility] [address] [place] [address], [facility] GFR/1.73 sq M predicted among blacks MDRD (S/P/Bld) [Vol rate/Area] mL/min/{1.73_m2} Normal >60 [facility] Comment on above: Order Comment: No: D o not add to previous draw Performed By: #### 5 0608 #### [facility] [address] [place] [address], [facility] GFR/1.73 sq M predicted among non-blacks MDRD (S/P/Bld) [Vol rate/Area] 52 ml/min/1.73sq m Abnormal >60 [facility] Comment on above: Order Comment: No: D o not add to previous draw Performed By: #### 5 0608 #### [facility] [address] [place] [address], [facility] Glucose [Mass/Vol] 131 mg/dL High 70-100 [facility] Comment on above: Order Comment: No: D o not add to previous draw Performed By: #### 5 0608 #### [facility] [address] [place] [address], [facility] Potassium [Moles/Vol] 3.9 mmol/L Normal 3.5-5.1 [facility] Comment on above: Order Comment: No: D o not add to previous draw Performed By: #### 5 0608 #### [facility] [address] [place] [address], [place] Sodium [Moles/Vol] 141 mmol/L Normal 136-145 [facility] Comment on above: Order Comment: No: D o not add to previous draw Performed By: #### 5 0608 #### [facility] [address] [place] [address], [place] Urea nitrogen [Mass/Vol] 28 mg/dL High 7-25 [facility] Comment on above: Order Comment: No: D o not add to previous draw Performed By: #### 5 0608 #### [facility] [address] [place] [address], [facility] CBC COMPLETE BLOOD COUNTon 0 - Erythrocyte distribution width (RBC) [Ratio] 13.5 % Normal 11.5-15.0 [facility] Comment on above: Order Comment: No: D o not add to previous draw Performed By: #### 5 0608 #### [facility] [address] [place] [address], [facility] Hematocrit (Bld) [Volume fraction] 37.1 % Normal 36.0-45.0 [facility] Comment on above: Order Comment: No: D o not add to previous draw Performed By: #### 5 0608 #### [facility] [address] [place] [address], [facility] Hemoglobin (Bld) [Mass/Vol] 12.2 g/dL Normal 12.0-15.0 [facility] Comment on above: Order Comment: No: D o not add to previous draw Performed By: #### 5 0608 #### [facility] [address] [place] [address], [facility] MCH (RBC) [Entitic mass] 28.8 pg Normal 27.0-33.0 [facility] Comment on above: Order Comment: No: D o not add to previous draw Performed By: #### 5 0608 #### [facility] [address] [place] [address], [facility] MCHC (RBC) [Mass/Vol] 32.9 g/dL Normal 32.0-35.0 [facility] Comment on above: Order Comment: No: D o not add to previous draw Performed By: #### 5 0608 #### [facility] [address] [place] [address], [facility] MCV (RBC) [Entitic vol] 87.7 fL Normal 82.0-98.0 [facility] Comment on above: Order Comment: No: D o not add to previous draw Performed By: #### 5 0608 #### [facility] [address] [place] [address], [facility] Nucleated RBC/100 WBC (Bld) [Ratio] 0 % Normal 0-0 [facility] Comment on above: Order Comment: No: D o not add to previous draw Performed By: #### 5 0608 #### [facility] [address] [place] [address], [facility] PLAT CNT 251 10*3/uL Normal 150-400 [facility] Comment on above: Order Comment: No: D o not add to previous draw Performed By: #### 5 0608 #### [facility] [address] [place] [address], [facility] RBC (Bld) [#/Vol] 4.23 10*6/uL Normal 3.80-5.00 [facility] Comment on above: Order Comment: No: D o not add to previous draw Performed By: #### 5 0608 #### [facility] [address] [place] [address], [facility] WBC (Bld) [#/Vol] 8.42 10*3/uL Normal 4.00-10.60 [facility] Comment on above: Order Comment: No: D o not add to previous draw Performed By: #### 5 0608 #### [facility] [address] Cardiovascular Lab Reporton 08-24-2018 Cardiovascular Lab Report [facility]: [id number] Department of Physician: Marshall oTrres M.D. Division of Service Date: 08/23/2018 Cardiology Birthdate: 1970 Adult Cardiovascular Room #: 3AB [id number] Services [facility] [address] [place] [address] Cardiovascular Laboratory Report FINAL IMPRESSION: 1. Mild [...] 5. Follow up with me in the [facility] post discharge. 6. Further recommendations deferred [...] the left radial artery was obtained. A 6-Malian Glidesheath was inserted without difficulty. Bilateral selective [...] 30% stenosis adjacent to a prominent septal chief controller center. There are luminal irregularities throughout the remainder [...] P/Tk Godoy M.D. Date Trans: 08/24/2018 06:37 A/adrianneo [id number] cc: Geovanni Brunner D.O. [address] [place] [address] [address] [facility] [address] [place] [facility] HIP RIGHT 1 OR 2 VWS WITH PE LVISon 08-24-2018 HIP RIGHT 1 OR 2 VWS WITH PELVIS [facility] Department of Radiology [address] [place] [id number] Patient Name: SHERLY HUMPHREYS : 1970 Sex: F Age: Race: White Pt. Location: [address] [place] [address] Patient Status: D Ordered Date: 08/24/2018 12:30:00 [...] findings. Electronically signed by:Kristy Jones. Transcribed by: [email or web address], User Resident: [email or web address] Electronically Signed by: KRISTY JONES @ 08/25/2018 08:05 PM I personally read this/these film(s) with this resident Normal [facility] Comment on above: Order Comment: No: D o not add to previous draw POC GLUCOSE LABon 08-24-2018 Glucose [Mass/Vol] 125 mg/dL High 70-100 [facility] Comment on above: Performed By: #### 5 0608 #### [facility] [address] [facility] [place] [address], [facility] Glucose [Mass/Vol] 150 mg/dL High 70-100 [facility] Comment on above: Performed By: #### 5 0608 #### [facility] [address] [facility] [place] [address], [facility] Glucose [Mass/Vol] 119 mg/dL High 70-100 [facility] Comment on above: Performed By: #### 5 0608 #### [facility] [address] [place] [address], [facility] UFH HEPARIN ASSAYon 08-25-19 19 UNFRACTIONATED HEPARIN <0.10 Critically low 0.30-0.70 [facility] Comment on above: Result Comment: Berkey roxaban and Apixaban will interfere with the anti Xa assay used to monitor UFH and LMWH. RESULTS CHECKED AND CALLED. ACCURATELY READ BACK BY JANENE ZAMARRIPA RN AT 0732 Performed By: #### 5 0608 #### [facility] [address] [facility]. [address] APTTon 08-23-2018 aPTT Coag (Bld) [Time] 38.8 s High 25.0-35.0 Th e [facility] Comment on above: Order Comment: No: [...] THIS PURPOSE. Performed By: #### 5 6101, 75668 #### [facility] [address] CBC COMPLETE BLOOD COUNTon 0 08-23-2018 Erythrocyte distribution width (RBC) [Ratio] 13.3 % Normal 11.5-15.0 [facility] Comment on above: Order Comment: No: D o not add to previous draw Performed By: #### 5 0608 #### [facility] [address] [facility]. [address] Hematocrit (Bld) [Volume fraction] 41.4 % Normal 36.0-45.0 [facility] Comment on above: Order Comment: No: D o not add to previous draw Performed By: #### 5 0608 #### [facility] [address] [facility]. [address] Hemoglobin (Bld) [Mass/Vol] 13.8 g/dL Normal 12.0-15.0 [facility] Comment on above: Order Comment: No: D o not add to previous draw Performed By: #### 5 0608 #### [facility] [address] [facility] [place] [address], [place] MCH (RBC) [Entitic mass] 29.0 pg Normal 27.0-33.0 [facility] Comment on above: Order Comment: No: D o not add to previous draw Performed By: #### 5 0608 #### [facility] [address] [place] [id number], [facility] MCHC (RBC) [Mass/Vol] 33.3 g/dL Normal 32.0-35.0 [facility] Comment on above: Order Comment: No: D o not add to previous draw Performed By: #### 5 0608 #### [facility] [address] [place] [address], [facility] MCV (RBC) [Entitic vol] 87.0 fL Normal 82.0-98.0 [facility] Comment on above: Order Comment: No: D o not add to previous draw Performed By: #### 5 0608 #### [facility] [address] [facility] [place] [address], [facility] Nucleated RBC/100 WBC (Bld) [Ratio] 0 % Normal 0-0 [facility] Comment on above: Order Comment: No: D o not add to previous draw Performed By: #### 5 0608 #### [facility] [address] [place] [id number], [facility] PLAT CNT 293 10*3/uL Normal 150-400 [facility] Comment on above: Order Comment: No: D o not add to previous draw Performed By: #### 5 0608 #### [facility] [address] [facility] [place] [id number], [facility] RBC (Bld) [#/Vol] 4.76 10*6/uL Normal 3.80-5.00 [facility] Comment on above: Order Comment: No: D o not add to previous draw Performed By: #### 5 0608 #### [facility] [address] [place] [address], [facility] WBC (Bld) [#/Vol] 10.48 10*3/uL Normal 4.00-10.60 [facility] Comment on above: Order Comment: No: D o not add to previous draw Performed By: #### 5 0608 #### [facility] [address] [place], [place] [address] History and Physicalon 08-23 History and Physical MR#: [id number] [facility] Pt. Name: Sherly Humphreys Admitted: 08/23/2018 Date of : 1970 Attending Physician: Nini Valente MD Room #: 3AB [id number] Discharge Date: HISTORY AND PHYSICAL CHIEF COMPLAINT: [...] she went to the emergency department in [facility]. Initial evaluation included troponin and EKG, which were negative. The patient was started on nitroglycerin patch. She experienced some relief after starting the nitroglycerin patch. Her pain went down from 8 to 6/10. Given her significant cardiac history, the patient was transferred to [facility] for further evaluation. The patient [...] with no ST-T wave changes. Troponin from [facility] was 0.01. Pending troponin in our [...] Valente MD Date Trans: 08/23/2018 06:27 A/yadira [id number] Normal [facility] POC GLUCOSE LABon 08-23-2018 Glucose [Mass/Vol] 101 mg/dL High 70-100 [facility] Comment on above: Performed By: #### 5 0608 #### [facility] [address] [facility] [place] [address], [facility] Glucose [Mass/Vol] 96 mg/dL Normal 70-100 [facility] Comment on above: Performed By: #### 5 0608 #### [facility] [address] [facility] [place] [address], [facility] Glucose [Mass/Vol] 134 mg/dL High 70-100 [facility] Comment on above: Performed By: #### 8 5499 #### [facility] [address] [facility] [place] [address], [facility] Glucose [Mass/Vol] 164 mg/dL High 70-100 [facility] Comment on above: Performed By: #### 8 5499 #### [facility] [address] [facility] [place] [address], [facility] PROTHROMBIN TIMEon 9 INR Coag (PPP) [Relative time] 1.06 {INR} Normal 0.91-1.16 [facility] Comment on above: Order Comment: No: [...] CHEST 1995;[id number]. Performed By: #### 5 6101, 49696 #### [facility] [employer] [address] PT Coag (PPP) [Time] 13.8 s Normal 12.3-14.8 [facility] Comment on above: Order Comment: No: D o not add to previous draw Result Comment: ALL RESULTS MUST BE INTERPRETED WITH RESPECT TO BLOOD DRAWING ARTIFACT OR DILUTION ERROR OF ANTICOAGULANT AT THE TIME OF SAMPLING. Performed By: #### 5 6101, 70444 #### [facility] [address] [facility]. [address] SERUM TESTon 08-23 TEST Negative Normal [facility] Comment on above: Order Comment: Yes: Add to Previous draw if able Performed By: #### 4 6473 #### [facility] [address] [facility]. [address] TROPONIN-Ion 08-23-2018 Troponin I.cardiac [Mass/Vol] 0.01 ng/mL Normal 0.00-0.04 [facility] Comment on above: Order Comment: No: D o not add to previous draw Result Comment: REFE RENCE RANGES: 0.00 - 0.04 ng/ml NORMAL 0.05 - 0.50 ng/ml INDETERMINATE > 0.50 ng/ml CONSISTENT WITH AN M.I. Performed By: #### 3 5200 #### [facility] UFH HEPARIN ASSAYon 08-24-19 19 UNFRACTIONATED HEPARIN 0.42 IU/mL Normal 0.30-0.70 Th e [facility] Comment on above: Order Comment: per beatriz schneider Result Comment: Berkey roxaban and Apixaban will interfere with the anti Xa assay used to monitor UFH and LMWH. Performed By: #### 3 0477 #### [facility] [address] UNFRACTIONATED HEPARIN 0.29 IU/mL Low 0.30-0.70 Th e [facility] Comment on above: Result Comment: Betty roxaban and Apixaban will interfere with the anti Xa assay used to monitor UFH and LMWH. Performed By: #### 3 0477 #### [address] US GALLBLADDERon 08-23-2018 US GALLBLADDER [facility] Department of Radiology [address] [place], [place] [id number] Patient Name: SHERLY HUMPHREYS : 1970 Sex: F Age: Race: White Pt. Location: [id number] Patient Status: I Ordered Date: 08/23/2018 11:30:00 [...] gallbladder. Electronically signed by:Nathan Mauricio. Transcribed by: [email or web address], User Resident: Electronically Signed by: NATHAN MAURICIO @ 08/23/2018 03:33 PM Normal [facility] Comment on above: Order Comment: No: D o not add to previous draw Vital Signs Date Time Vital Sign Value Performing Clinician Facility 11-03-2024 09:50-0400 Body height 170.2 cm [employer] Work Phone: [facility] Yingying Licai 11-03-2024 09:50-0400 Body mass index (BMI) [Ratio] 36.65 kg/m2 Grapeshot DO Work Phone: [facility] 11-03-2024 09:50-0400 Body temperature 98.01 [degF] Grapeshot DO Work Phone: [facility] 11-03-2024 09:50-0400 Body weight 106.14 kg Grapeshot DO Work Phone: [facility] Yingying Licai 11-03-2024 09:50-0400 Diastolic blood pressure 78 mm[Hg] Grapeshot DO Work Phone: [facility] 11-03-2024 09:50-0400 Heart rate 56 /min [employer] Work Phone: [facility] 11-03-2024 09:50-0400 SaO2% (BldA) [Mass fraction] 96 % Marya Petznick DO Work Phone: [facility] 11-03-2024 09:50-0400 Systolic blood pressure 124 mm[Hg] Marya Petznick DO Work Phone: [facility] 09-03-2024 09:40-0400 Body mass index (BMI) [Ratio] 37.59 kg/m2 Janene Aichholz [employer] Work Phone: [facility] 09-03-2024 09:40-0400 Body temperature 98.49 [degF] Janene Aichholz [employer] Work Phone: [facility] 09-03-2024 09:40-0400 Body weight 108.86 kg Janene Aichholz [employer] Work Phone: [facility] 09-03-2024 09:40-0400 Diastolic blood pressure 72 mm[Hg] Janene Aichholz [employer] Work Phone: [facility] 09-03-2024 09:40-0400 Heart rate 67 /min Janene Aichholz [employer] Work Phone: [facility] 09-03-2024 09:40-0400 Respiratory rate 22 /min Janene Aichholz [employer] Work Phone: [facility] 09-03-2024 09:40-0400 SaO2% (BldA) [Mass fraction] 97 % Janene Aichholz [employer] Work Phone: [facility] 09-03-2024 09:40-0400 Systolic blood pressure 102 mm[Hg] Janene Aichholz [employer] Work Phone: [facility] 06-16-2024 09:07-0500 Body height 170.2 cm Marya Petznick DO Work Phone: [facility] 06-16-2024 09:07-0500 Body mass index (BMI) [Ratio] 38.37 kg/m2 Marya Petznick DO Work Phone: [facility] 06-16-2024 09:07-0500 Body temperature 98.2 [degF] Marya Petznick DO Work Phone: [facility] 06-16-2024 09:07-0500 Body weight 111.13 kg Marya Petznick DO Work Phone: [facility] 06-16-2024 09:07-0500 Diastolic blood pressure 82 mm[Hg] Marya Petznick DO Work Phone: [facility] 06-16-2024 09:07-0500 Heart rate 61 /min Marya Petznick DO Work Phone: [facility] 06-16-2024 09:07-0500 SaO2% (BldA) [Mass fraction] 97 % Marya Petznick DO Work Phone: [facility] 06-16-2024 09:07-0500 Systolic blood pressure 136 mm[Hg] Marya Petznick DO Work Phone: [facility] 03-06-2024 09:28-0500 Body height 170.2 cm Janene Louann [employer] Work Phone: [facility] 03-06-2024 09:28-0500 Body mass index (BMI) [Ratio] 40.69 kg/m2 Janene Louann [employer] Work Phone: [facility] 03-06-2024 09:28-0500 Body temperature 98.49 [degF] Janene Louann [employer] Work Phone: [facility] 03-06-2024 09:28-0500 Body weight 117.84 kg Janene Louann [employer] Work Phone: [facility] 03-06-2024 09:28-0500 Diastolic blood pressure 84 mm[Hg] Janene Emiz [employer] Work Phone: [facility] 03-06-2024 09:28-0500 Heart rate 60 /min Janene Louann [employer] Work Phone: [facility] 03-06-2024 09:28-0500 Respiratory rate 20 /min Janene Emiz [employer] Work Phone: [facility] 03-06-2024 09:28-0500 SaO2% (BldA) [Mass fraction] 96 % Janene Louann [employer] Work Phone: [facility] 03-06-2024 09:28-0500 Systolic blood pressure 132 mm[Hg] Janene Louann [employer] Work Phone: [facility] 02-19-2024 09:23-0500 Body height 162.6 cm Marya Petznick DO Work Phone: [facility] 02-19-2024 09:23-0500 Body mass index (BMI) [Ratio] 46.86 kg/m2 Marya Petznick DO Work Phone: [facility] 02-19-2024 09:23-0500 Body temperature 96.8 [degF] Marya Petznick DO Work Phone: [facility] 02-19-2024 09:23-0500 Body weight 123.83 kg Marya Petznick DO Work Phone: [facility] 02-19-2024 09:23-0500 Diastolic blood pressure 82 mm[Hg] Marya Petznick DO Work Phone: [facility] 02-19-2024 09:23-0500 Heart rate 56 /min Marya Petznick DO Work Phone: [facility] 02-19-2024 09:23-0500 SaO2% (BldA) [Mass fraction] 97 % Marya Petznick DO Work Phone: [facility] 02-19-2024 09:23-0500 Systolic blood pressure 130 mm[Hg] Marya Petznick DO Work Phone: [facility] 12-05-2023 08:35-0400 Body height 162.6 cm Janene Lew [employer]AREPOINT ADMIN Work Phone: [facility] 12-05-2023 08:35-0400 Body mass index (BMI) [Ratio] 49.06 kg/m2 Janene Louann [employer]AREPOINT ADMIN Work Phone: [facility] 12-05-2023 08:35-0400 Body temperature 98.71 [degF] Janene Aichholz SHAREPOINT ADMIN Work Phone: [facility] 12-05-2023 08:35-0400 Body weight 129.64 kg Janene Aichholz SHAREPOINT ADMIN Work Phone: [facility] 12-05-2023 08:35-0400 Diastolic blood pressure 88 mm[Hg] Janene Aichholz SHAREPOINT ADMIN Work Phone: [facility] 12-05-2023 08:35-0400 Heart rate 66 /min Janene Aichholz [employer]AREPOINT ADMIN Work Phone: [facility] 12-05-2023 08:35-0400 Respiratory rate 20 /min Janene Aichholz [employer]AREPOINT ADMIN Work Phone: [facility] 12-05-2023 08:35-0400 SaO2% (BldA) [Mass fraction] 98 % Janene Aichholz [employer]AREPOINT ADMIN Work Phone: [facility] 12-05-2023 08:35-0400 Systolic blood pressure 122 mm[Hg] Janene Aichholz SHAREPOINT ADMIN Work Phone: [facility] 11-01-2023 11:00-0400 Diastolic blood pressure 83 mm[Hg] Janene Aichholz Work Phone: [facility] 11-01-2023 11:00-0400 Heart rate 52 /min Janene Aichholz Work Phone: [facility] 11-01-2023 11:00-0400 Respiratory rate 16 /min Janene Aichholz Work Phone: [facility] 11-01-2023 11:00-0400 SaO2% (BldA) [Mass fraction] 98 % Janene Aichholz Work Phone: [facility] 11-01-2023 11:00-0400 Systolic blood pressure 144 mm[Hg] Janene Aichholz Work Phone: [facility] 11-01-2023 10:30-0400 Inhaled oxygen flow rate 8 L/min Janene Aichholz Work Phone: [facility] 11-01-2023 07:28-0400 Body height 162.56 cm Janene Aichholz Work Phone: [facility] 11-01-2023 07:28-0400 Body temperature 97.9 [degF] Janene Aichholz Work Phone: [facility] 11-01-2023 07:28-0400 Body weight 129.72 kg Janene Aichholz Work Phone: [facility] 10-16-2023 13:05-0400 Body height 162.56 cm Janene Aichholz Work Phone: [facility] 10-16-2023 13:05-0400 Body mass index (BMI) [Ratio] 51.5 kg/m2 Janene Aichholz Work Phone: [facility] 10-16-2023 13:05-0400 Body temperature 97.3 [degF] Janene Aichholz Work Phone: [facility] 10-16-2023 13:05-0400 Body weight 136.3 kg Janene Aichholz Work Phone: [facility] 10-16-2023 13:05-0400 Diastolic blood pressure 76 mm[Hg] Janene Aichholz Work Phone: [facility] 10-16-2023 13:05-0400 Heart rate 69 /min Janene Aichholz Work Phone: [facility] 10-16-2023 13:05-0400 Respiratory rate 18 /min Janene Aichholz Work Phone: [facility] 10-16-2023 13:05-0400 SaO2% (BldA) [Mass fraction] 99 % Janene Aichholz Work Phone: [facility] 10-16-2023 13:05-0400 Systolic blood pressure 125 mm[Hg] Janene Aichholz Work Phone: [facility] 10-02-2023 08:00-0400 Body temperature 97.9 [degF] Janene Aichholz Work Phone: [facility] 10-02-2023 08:00-0400 Diastolic blood pressure 82 mm[Hg] Janene Aichholz Work Phone: [facility] 10-02-2023 08:00-0400 Heart rate 58 /min Janene Aichholz Work Phone: [facility] 10-02-2023 08:00-0400 Respiratory rate 16 /min Janene Aichholz Work Phone: [facility] 10-02-2023 08:00-0400 SaO2% (BldA) [Mass fraction] 100 % Janene Aichholz Work Phone: [facility] 10-02-2023 08:00-0400 Systolic blood pressure 138 mm[Hg] Janene Aichholz Work Phone: [facility] 10-02-2023 05:02-0400 Body weight 139.8 kg Janene Aichholz Work Phone: [facility] 10-01-2023 05:34-0400 Body height 162.56 cm Janene Aichholz Work Phone: [facility] 08-15-2023 10:02-0400 Body height 162.56 cm Janeen Aichholz Work Phone: [facility] 08-15-2023 10:02-0400 Body mass index (BMI) [Ratio] 54.6 kg/m2 Janeen Aichholz Work Phone: [facility] 08-15-2023 10:02-0400 Body temperature 96.9 [degF] Janene Aichholz Work Phone: [facility] 08-15-2023 10:02-0400 Body weight 144.24 kg Janene Aichholz Work Phone: [facility] 08-15-2023 10:02-0400 Diastolic blood pressure 77 mm[Hg] Janene Aichholz Work Phone: [facility] 08-15-2023 10:02-0400 Heart rate 59 /min Janene Aichholz Work Phone: [facility] 08-15-2023 10:02-0400 Respiratory rate 18 /min Janene Aichholz Work Phone: [facility] 08-15-2023 10:02-0400 SaO2% (BldA) [Mass fraction] 98 % Janene Aichholz Work Phone: [facility] 08-15-2023 10:02-0400 Systolic blood pressure 130 mm[Hg] Janene Aichholz Work Phone: [facility] 08-14-2022 10:15-0400 Body height 162.56 cm Ivan Pandaky Other [facility] Other 08-14-2022 10:15-0400 Body mass index (BMI) [Ratio] 51.63 kg/m2 Ivan Sams Other [facility] Other 08-14-2022 10:15-0400 Body weight 136.44 kg Ivan Sams Other [facility] Other 08-14-2022 10:15-0400 Diastolic blood pressure 80 mm[Hg] Ivan Sams Other [facility] Other 08-14-2022 10:15-0400 SaO2% (BldA) [Mass fraction] 99 % Ivan Sams Other [facility] Other 08-14-2022 10:15-0400 Systolic blood pressure 140 mm[Hg] Ivan Sams Other [facility] Other 07-03-2022 12:30-0400 Body height 162.56 cm Ivan Sams Other [facility] Other 07-03-2022 12:30-0400 Body mass index (BMI) [Ratio] 51.39 kg/m2 Ivan Sams Other [facility] Other 07-03-2022 12:30-0400 Body weight 135.81 kg Ivan Sams Other [facility] Other 07-03-2022 12:30-0400 Diastolic blood pressure 84 mm[Hg] Ivan Sams Other [facility] Other 07-03-2022 12:30-0400 SaO2% (BldA) [Mass fraction] 99 % Ivan Sams Other [facility] Other 07-03-2022 12:30-0400 Systolic blood pressure 142 mm[Hg] Ivan Sams Other [facility] Other 06-24-2022 15:59-0500 Body height 162.56 cm Janene Lew Work Phone: [facility] 06-24-2022 15:59-0500 Body temperature 98.2 [degF] Janene Lew Work Phone: [facility] 06-24-2022 15:59-0500 Body weight 134.4 kg Janene Aichholz Work Phone: [facility] 06-24-2022 15:59-0500 Diastolic blood pressure 95 mm[Hg] Janene Aichholz Work Phone: [facility] 06-24-2022 15:59-0500 Heart rate 94 /min Janene Aichholz Work Phone: [facility] 06-24-2022 15:59-0500 Respiratory rate 20 /min Janene Aichholz Work Phone: [facility] 06-24-2022 15:59-0500 SaO2% (BldA) [Mass fraction] 96 % Janene Aichholz Work Phone: [facility] 06-24-2022 15:59-0500 Systolic blood pressure 187 mm[Hg] Janene Aichholz Work Phone: [facility] 05-12-2022 12:00-0500 Body height 162.56 cm Christian Hamilton Other [facility] Other 05-12-2022 12:00-0500 Body mass index (BMI) [Ratio] 51.94 kg/m2 Christian Hamilton Other [facility] Other 05-12-2022 12:00-0500 Body weight 137.26 kg Christian Hamilton Other [facility] Other 04-25-2022 12:20-0500 Body height 162.56 cm Halle Mac Other [facility] Other 04-25-2022 12:20-0500 Body mass index (BMI) [Ratio] 51.94 kg/m2 Halle [employer] Other [facility] Other 04-25-2022 12:20-0500 Body temperature 97.5 [degF] Aziz Tias Other [facility] Other 04-25-2022 12:20-0500 Body weight 137.26 kg Azaurelia Bakhous Other [facility] Other 04-25-2022 12:20-0500 Diastolic blood pressure 80 mm[Hg] Azaurelia Webers Other [facility] Other 04-25-2022 12:20-0500 Respiratory rate 18 /min Azaurelia Bakhous Other [facility] Other 04-25-2022 12:20-0500 SaO2% (BldA) [Mass fraction] 97 % Halle Webers Other [facility] Other 04-25-2022 12:20-0500 Systolic blood pressure 140 mm[Hg] Aziz Bakmichaels Other [facility] Other 01-25-2022 16:15-0400 Body height 162.56 cm Emma Bolivar Other [facility] Other 01-25-2022 16:15-0400 Body mass index (BMI) [Ratio] 52.78 kg/m2 Emma Bolivar Other [facility] Other 01-25-2022 16:15-0400 Body temperature 97.1 [degF] Emma Bolivar Other [facility] Other 01-25-2022 16:15-0400 Body weight 139.48 kg Emma Bolivar Other [facility] Other 01-25-2022 16:15-0400 Diastolic blood pressure 70 mm[Hg] Emma Bolivar Other [facility] Other 01-25-2022 16:15-0400 SaO2% (BldA) [Mass fraction] 98 % Emma Bolivar Other [facility] Other 01-25-2022 16:15-0400 Systolic blood pressure 142 mm[Hg] Emma Bolivar Other [facility] Other 12-06-2021 12:20-0400 Body height 162.56 cm Christian Hamilton Other [facility] Other 12-06-2021 12:20-0400 Body mass index (BMI) [Ratio] 46.34 kg/m2 Christian Hamilton Other [facility] Other 12-06-2021 12:20-0400 Body weight 122.47 kg Christian Alfonso Other [facility] Other 11-10-2021 16:20-0400 Body height 162.56 cm Christian Hamilton Other [facility] Other 11-10-2021 16:20-0400 Body mass index (BMI) [Ratio] 46.34 kg/m2 Christian Hamilton Other [facility] Other 11-10-2021 16:20-0400 Body weight 122.47 kg Christian Hamilton Other [facility] Other 09-29-2021 14:00-0400 Body height 162.56 cm Christian Hamilton Other [facility] Other 09-29-2021 14:00-0400 Body mass index (BMI) [Ratio] 46 kg/m2 Christian Hamilton Other [facility] Other 09-29-2021 14:00-0400 Body weight 121.56 kg Christian Hamilton Other [facility] Other 08-30-2021 15:40-0400 Body height 162.56 cm Christian Hamilton Other [facility] Other 08-30-2021 15:40-0400 Body mass index (BMI) [Ratio] 46 kg/m2 Christian Hamilton Other [facility] Other 08-30-2021 15:40-0400 Body weight 121.56 kg Christian Hamilton Other [facility] Other Encounters Encounter Date Encounter Type Care Provider Facility Start: 11-11-2024 End: 11-12-2024 Refill Janene Lew [employer]AREPOINT ADMIN Work Phone: [facility] Comment on above: Muscle spasm Start: 11-06-2024 ambulatory Valdemar Alonso Facility:[facility] Start: 11-03-2024 End: 11-03-2024 Bamboo flowsheet Marya Castorena DO Work Phone: [facility] Start: 11-03-2024 End: 11-03-2024 Bamboo flowsheet Marya Andrade Petznick DO Work Phone: [facility] Start: 11-03-2024 End: 11-03-2024 Office outpatient visit 25 minutes Marya Castorena DO Work Phone: [facility] Comment on above: Type 2 diabetes chidi itus with other circulatory complications (HCC) (Primary Dx); Type 2 diabetes mellitus with stage 3a chronic kidney disease, without long-term current use of insulin (HCC); Type 2 diabetes mellitus with stage 4 chronic kidney disease, without long-term current use of insulin (HCC); Type 2 diabetes mellitus without complication, without long-term current use of insulin (HCC); Class 2 severe obesity due to excess calories with serious comorbidity and body mass index (BMI) of 36.0 to 36.9 in adult (CMS-HCC) Start: 11-03-2024 End: 11-03-2024 ambulatory MARYA CASTORENA Not Available Start: 10-16-2024 End: 10-16-2024 ambulatory [facility] Start: 10-16-2024 End: 10-16-2024 Encounter for other preprocedural examination [facility] Start: 10-07-2024 End: 10-07-2024 Clinisync Result Encounter Generic External Data Provider [facility] External Department Unsolicited Start: 10-07-2024 End: 10-07-2024 Clinisync Result Encounter Generic External Data Provider [facility] External Department Unsolicited Start: 09-09-2024 End: 09-09-2024 Refill Janene Lew NP Work Phone: [facility] Comment on above: Restless leg syndrom e Start: 09-03-2024 End: 09-03-2024 Patient encounter status Janene Lew NP Work Phone: [facility] Start: 09-03-2024 End: 09-03-2024 Periodic preventive med est patient 40-64yrs Janene Lew NP Work Phone: [facility] Comment on above: Encounter for wellne ss examination in adult (Primary Dx); Encounter for screening mammogram for malignant neoplasm of breast; Primary hypertension (CMS/HCC); Chronic diastolic heart failure (CMS/HCC); Stage 3b chronic kidney disease (HCC) (CMS/HCC); Class 2 severe obesity due to excess calories with serious comorbidity and body mass index (BMI) of 38.0 to 38.9 in adult (CMS/HCC); Type 2 diabetes mellitus with stage 3a chronic kidney disease, without long-term current use of insulin (HCC) (CMS/HCC); Mixed hyperlipidemia (CMS/HCC) Start: 09-03-2024 End: 09-03-2024 ambulatory JANENE REDDHHOLZ Not Available Start: 09-01-2024 End: 09-02-2024 Refill Janene Aichholz [employer]ARE[employer] ADMIN Work Phone: [facility] Comment on above: Primary hypertension ([facility]) Muscle spasm Start: 08-28-2024 End: 08-28-2024 Clinisync Result Encounter Janene Emiz [employer]ARE[employer] ADMIN Work Phone: [facility] Unsolicited Start: 08-28-2024 End: 08-28-2024 Clinisync Result Encounter Janene Karenholz [employer] ADMIN Work Phone: [facility] Unsolicited Start: 08-12-2024 End: 08-14-2024 Refill Janene Aichholz [employer] ADMIN Work Phone: [facility] Start: 07-25-2024 End: 07-25-2024 Refill Janene Aichholz [employer]AREPOINT ADMIN Work Phone: [facility] Comment on above: Restless leg syndrom e Start: 07-15-2024 End: 07-15-2024 Orders Only Janene Emiz [employer]AREPOINT ADMIN Work Phone: [facility] Comment on above: Acute foot pain, lef t (Primary Dx); Acute left ankle pain Start: 06-16-2024 End: 06-16-2024 Bamboo flowsheet Marya Castorena DO Work Phone: [facility] Start: 06-16-2024 End: 06-16-2024 Bamboo flowsheet Marya Simonick DO Work Phone: [facility] Start: 06-16-2024 End: 06-16-2024 Office outpatient visit 25 minutes Marya Castorena DO Work Phone: [facility] Comment on above: Class 2 severe obesi ty due to excess calories with serious comorbidity and body mass index (BMI) of 38.0 to 38.9 in adult ([facility]) (Primary Dx); Type 2 diabetes mellitus with other circulatory complications (CMS/HCC); Type 2 diabetes mellitus with stage 3a chronic kidney disease, without long-term current use of insulin (HCC) (CMS/HCC) Start: 06-16-2024 End: 06-16-2024 ambulatory MARYA CASTORENA Not Available Start: 05-27-2024 End: 05-27-2024 Refill Janene Aichholz [employer]ARE[employer] ADMIN Work Phone: [facility] Comment on above: Muscle spasm Start: 03-20-2024 End: 03-21-2024 Refill Janene Aichholz [employer]AREPOINT ADMIN Work Phone: [facility] Comment on above: Restless leg syndrom e Start: 03-11-2024 End: 03-11-2024 ambulatory [facility] Facility:[facility] Start: 03-06-2024 End: 03-06-2024 Bamboo flowsheet Janene Aichholz [employer]AREPOINT ADMIN Work Phone: [facility] Start: 03-06-2024 End: 03-06-2024 Bamboo flowsheet Janene Aichholz [employer]AREPOINT ADMIN Work Phone: [facility] Start: 03-06-2024 End: 03-06-2024 Office outpatient visit 25 minutes Janene Aichholz [employer]AREPOINT ADMIN Work Phone: [facility] Comment on above: Primary hypertension (CMS/HCC) (Primary Dx); Spinal stenosis of lumbar region [...] (BMI) of 45.0 to 49.9 in adult (CMS/[facility]); Bipolar affective disorder, remission status unspecified (CMS/HCC); Generalized anxiety disorder (CMS/[facility]); Vitamin D deficiency; Vitamin B12 deficiency; H/O bariatric surgery; Acute non-recurrent pansinusitis Start: 03-06-2024 End: 03-06-2024 ambulatory JANENE AICHHOLZ Not Available Start: 02-22-2024 End: 02-25-2024 Refill Janene Aichholz [employer]AREPOINT ADMIN Work Phone: [facility] Comment on above: Muscle spasm Start: 02-19-2024 End: 02-19-2024 Office outpatient visit 25 minutes Marya Castorena DO Work Phone: [facility] Comment on above: Type 2 diabetes chidi itus with other circulatory complications (CMS/HCC) (Primary Dx); Type 2 diabetes mellitus with stage 4 chronic kidney disease, without long-term current use of insulin (CMS/HCC); Type 2 diabetes mellitus with stage 3a chronic kidney disease, without long-term current use of insulin (HCC) (CMS/HCC); Class 3 severe obesity due to excess calories with serious comorbidity and body mass index (BMI) of 45.0 to 49.9 in adult (CMS/HCC) Start: 02-19-2024 End: 02-19-2024 ambulatory MARYA CASTORENA Not Available Start: 01-14-2024 End: 01-14-2024 Refill Janene Aichholz [employer]AREPOINT ADMIN Work Phone: [facility] Comment on above: Primary hypertension (CMS/HCC) Start: 12-19-2023 End: 12-19-2023 Refill Janene Aichholz [employer]AREPOINT ADMIN Work Phone: [facility] Comment on above: Type 2 diabetes chidi itus with stage 4 chronic kidney disease, without long-term current use of insulin (CMS/HCC) (Primary Dx) Start: 12-18-2023 End: 12-18-2023 Clinisync Result Encounter Janene Aichholz [employer]AREPOINT ADMIN Work Phone: [facility] External Department Unsolicited Start: 12-18-2023 End: 12-18-2023 Clinisync Result Encounter Janene Aichholz SHAREPOINT ADMIN Work Phone: [facility] External Department Unsolicited Start: 12-18-2023 End: 09-03-2024 Refill Janene Aichholz [employer]AREPOINT ADMIN Work Phone: [facility] Comment on above: Restless leg syndrom e Start: 12-18-2023 End: 12-18-2023 Refill Janene Louann [employer]AREPOINT ADMIN Work Phone: [facility] Comment on above: Antibiotic-induced y east infection (Primary Dx) Start: 12-05-2023 End: 12-05-2023 Bamboo flowsheet Janene Louann [employer]AREPOINT ADMIN Work Phone: [facility] Start: 12-05-2023 End: 12-05-2023 Bamboo flowsheet Janene Louann [employer]AREPOINT ADMIN Work Phone: [facility] Start: 12-05-2023 End: 12-07-2023 Refill Janene Emiz [employer]AREPOINT ADMIN Work Phone: [facility] Comment on above: Muscle spasm Start: 12-05-2023 End: 12-05-2023 Office outpatient visit 25 minutes Janene Louann [employer]AREPOINT ADMIN Work Phone: [facility] Comment on above: Left lower quadrant abdominal pain (Primary Dx); Morbid (severe) obesity due to excess calories (CMS/HCC); Body mass index (BMI) 45.0-49.9, adult (CMS/HCC); Restless leg syndrome; Stage 3b chronic kidney disease (HCC) (CMS/HCC) Start: 12-05-2023 End: 12-05-2023 ambulatory JANENE LOUANN Not Available Start: 12-03-2023 End: 12-03-2023 ambulatory Marcella Conway MD Facility: [facility] Start: 11-19-2023 End: 11-19-2023 ambulatory MARYA CASTORENA Not Available Start: 11-12-2023 End: 11-13-2023 ambulatory [facility] Start: 11-01-2023 End: 11-01-2023 Admission to same day surgery center Janene Lew Work Phone: [facility] [place] Start: 11-01-2023 End: 11-01-2023 ambulatory Janene J Karenholz Work Phone: [facility] Work Phone: Start: 10-29-2023 Registered Recurring Janene adamsz Work Phone: [facility] Start: 10-16-2023 End: 10-16-2023 ambulatory Janene J Karenholz Work Phone: [facility] Work Phone: Start: 10-16-2023 End: 10-16-2023 Patient encounter procedure Janeneamanda Jonesholz Work Phone: [facility] Work Phone: Start: 10-16-2023 Registered Recurring Janeneamanda daniels Work Phone: [facility] Start: 10-11-2023 End: 10-11-2023 ambulatory Janene J Karenholz Work Phone: [facility] Work Phone: Start: 10-11-2023 End: 10-11-2023 Patient encounter procedure Janeneamanda Jonesholz Work Phone: [facility] [place] Work Phone: Start: 10-01-2023 Non-patient / Non-visit Janene A dorisholz Work Phone: [facility] Work Phone: Start: 10-01-2023 End: 10-02-2023 Evaluation and management of inpatient Janene Karenholz Work Phone: [facility] Work Phone: Start: 09-24-2023 End: 09-24-2023 ambulatory Marcella Conway MD Facility:[facility] Start: 09-03-2023 Registered Recurring Janene Jones jeremiah Work Phone: [facility] Start: 08-15-2023 End: 08-15-2023 Patient encounter procedure Janene Jonesangierufus Work Phone: [facility] Work Phone: Start: 08-10-2023 End: 08-10-2023 ambulatory Janene Lopes Reddtimmyjeremiah Work Phone: [facility] Work Phone: Start: 08-10-2023 End: 08-10-2023 Patient encounter procedure Janene Rdedtimmyjeremiah Work Phone: [facility] [place] Work Phone: Start: 07-09-2023 End: 07-09-2023 ambulatory Marcella Conway MD Facility: [facility] Start: 06-19-2023 End: 06-19-2023 Patient encounter procedure Janene Reddtimmyangierufus Work Phone: [facility] [place] Work Phone: Start: 05-25-2023 End: 05-25-2023 ambulatory MARKEL HAQ Facility:[facility] Start: 05-17-2023 End: 05-17-2023 ambulatory Janene Lew Work Phone: [facility] Work Phone: Start: 05-17-2023 End: 05-17-2023 Patient encounter procedure Janene Reddtimmyjeremiah Work Phone: [facility] [place] Work Phone: Start: 03-15-2023 Registered Recurring Janene Reddtimmy jeremiah Work Phone: [facility] Start: 02-19-2023 End: 02-19-2023 ambulatory Marcella Conway MD Facility:[facility] Start: 01-01-2023 End: 01-01-2023 ambulatory Marclela Conway MD Facility:[facility] Start: 11-29-2022 End: 11-29-2022 ambulatory Halle Mac Other [facility] Other Start: 11-29-2022 Telephone encounter Halle Mac [facility] Start: 09-18-2022 End: 09-18-2022 ambulatory Ivanying Sams Other [facility] Other Start: 09-18-2022 Telephone encounter Ivan Latrell [facility] Start: 09-07-2022 End: 09-07-2022 ambulatory TIE KNITTER HELPER JANENE REDDTimmyANGIEZ Facility:[facility] Start: 08-14-2022 End: 08-14-2022 ambulatory Ivan Latrell Other [facility] Other Start: 08-14-2022 Office outpatient vi sit 25 minutes Ivan Latrell [facility] Start: 07-03-2022 End: 07-03-2022 ambulatory Ivan Latrell Other [facility] Other Start: 07-03-2022 Office consultation new/estab patient 60 min Ivan Latrell [facility] Start: 06-24-2022 End: 06-24-2022 Emergency department patient visit Janene Louann Work Phone: [facility] Work Phone: Start: 06-08-2022 End: 06-09-2022 ambulatory TIE KNITTER HELPER JANENE AICHHOLZ Facility:[facility] Start: 05-29-2022 End: 05-30-2022 ambulatory TIE KNITTER HELPER JANENE AICHHOLZ Facility:[facility] Start: 05-13-2022 ambulatory TIE KNITTER HELPER JANENE REDDTimmyANGIERufus Facil ity:[facility] Start: 05-12-2022 End: 05-12-2022 ambulatory Christian Hamilton Other [employer] Other Start: 05-12-2022 Office outpatient vi sit 15 minutes Christian Hamilton [facility] Neurosurgery Start: 04-25-2022 End: 04-25-2022 ambulatory Halle Mac Other [place] [employer] Other Start: 04-25-2022 Office outpatient ne w 30 minutes Azaurelia Webers [facility] [place] Start: 03-29-2022 End: 03-30-2022 ambulatory [employer]IT[employer] HEL[employer] JANENE AICTimmyHOLZ Facility:H1 Start: 03-23-2022 End: 03-24-2022 ambulatory TIE KNITTER HELPER JANENE AICHHOLZ Facility:H1 Start: 02-19-2022 End: 02-19-2022 ambulatory TIE KNITTER HELPER JANENE AICHHOLZ Facility:H1 Start: 02-16-2022 End: 02-16-[address] MYRIAM PERRIN . Facility:H1 Start: 02-15-2022 ambulatory T[employer] KNITTER HELPER JANENE AICHHOLZ Facil ity:H1 Start: 01-25-2022 End: 01-25-2022 Patient encounter procedure Janene Emiz Work Phone: [facility] Start: 01-25-2022 End: 01-25-2022 ambulatory Janene Moses Lew Work Phone: [facility] Work Phone: Start: 01-25-2022 Office outpatient vi sit 25 minutes Emma Bolivar [facility] Start: 01-25-2022 End: 01-26-2022 ambulatory TIE KNITTER HELPER JANENE AICHHOLZ Facility:H1 Start: 01-23-2022 End: 01-24-2022 ambulatory TIE KNITTER HELPER JANENE AICHHOLZ Facility:H1 Start: 01-12-2022 End: 01-13-2022 ambulatory TIE KNITTER HELPER JANENE AICHHOLZ Facility:H1 Start: 12-21-2021 End: 12-22-2021 ambulatory T[employer] KNITTER HELPER JANENE AICHHOLZ Facility:H1 Start: 12-06-2021 End: 12-06-2021 ambulatory Christian Hamilton Other [employer] Other Start: 12-06-2021 Office outpatient vi sit 15 minutes Christian Hamilton [facility] Neurosurgery Start: 11-30-2021 End: 11-30-2021 ambulatory T[employer] KNITTER HELPER JANENE JONESHOLZ Facility:H1 Start: 11-28-2021 End: 11-29-2021 ambulatory TIE KNITTER HELPER JANENEAmanda JONESHOLZ Facility:H1 Start: 11-14-2021 End: 11-14-2021 ambulatory Janene Lew Work Phone: [facility] Work Phone: Start: 11-14-2021 End: 11-14-2021 Discharged Recurring Janene Lew Work Phone: [facility] [place] Start: 11-10-2021 End: 11-10-2021 ambulatory Christian Hamitlon Other [employer] Other Start: 11-10-2021 Postop follow up vis it related to original px Christian Hamilton [facility] Neurosurgery Start: 10-28-2021 End: 10-29-2021 ambulatory TIE KNITTER HELPER JANENE KARENHOLZ Facility:H1 Start: 10-02-2021 End: 10-02-2021 ambulatory TIE KNITTER HELPER JANENE KARENHOLZ Facility:H1 Start: 09-29-2021 End: 09-29-2021 ambulatory Christian Hamilton Other [employer] Other Start: 09-29-2021 Postop follow up vis it related to original px Christian Hamilton [facility] Neurosurgery Start: 08-30-2021 End: 08-30-2021 ambulatory Christian Hamilton Other [employer] Other Start: 08-30-2021 Postop follow up vis it related to original px Christian Hamilton [facility] Neurosurgery Start: 08-12-2021 Admission to same [facility] surgery center Christian Hamilton [facility] Start: 08-12-2021 End: 08-12-2021 ambulatory Christian Hamilton Other [employer] Other Start: 08-23-2018 End: 08-25-2018 Evaluation and management of inpatient Peng Merino Facility:[facility] Procedures Date Procedure Procedure Detail Performing Clinician Start: 11-03-2024 Hemoglobin glycosyla joaquin a1c Marya Andrade Petznick DO Work Phone: Start: 10-07-2024 XR CHEST 2V Generic Ex ternal Data Provider Start: 10-07-2024 ALL CBC WITH AUTO DIFF Generic External Data Provider Start: 10-07-2024 ECG 12-LEAD Generic Ex ternal Data Provider Start: 08-28-2024 Radex hip unilateral with pelvis 2-3 views Generic External Data Provider Start: 08-28-2024 ALL CBC WITH AUTO DIFF Janene Louann [employer] Work Phone: Start: 06-16-2024 Hemoglobin glycosyla joaquin a1c Marya Andrade Petznick DO Work Phone: Start: 02-19-2024 Hemoglobin glycosyla joaquin a1c Marya M Petznick DO Work Phone: Start: 12-18-2023 ALL CBC WITH AUTO DIFF Janene Louann [employer] Work Phone: Start: 11-01-2023 End: 11-01-2023 Colonoscopy Janene Emiz Work Phone: Start: 09-28-2023 Mammography Janene Jose olrufus [employer] Work Phone: Start: 09-11-2023 History of percutane ous transluminal coronary angioplasty History of PTCA Janeneamanda Lew [employer] Work Phone: Start: 05-17-2023 Urine culture Janene adamsz Work Phone: Start: 08-23-2018 FLUOROSCOPY OF MULTI PLE CORONARY ARTERIES USING OTH CONTRAST TK GODOY Start: 05-18-2016 Microscopic observat ion [Identifier] in Cervix by Cyto stain Janene Lew [employer] Work Phone: History of percutane ous transluminal coronary angioplasty History of PTCA Janene Lew Work Phone: Plan of Treatment Date Care Activity Detail Author Start: 10-31-2033 Screening for malignant neoplasm of colon [facility] Start: 09-05-2025 Glaucoma screening Diabetes: Retinopathy Screening [facility] Start: 08-28-2025 Urine screening for protein Diabetes: Urine Protein Screening [facility] Start: 05-05-2025 End: 05-05-2025 Patient encounter procedure [facility] 230 Start: 02-03-2025 Hemoglobin A1c measurement Diabetes: Hemoglobin A1C [facility] Start: 12-16-2024 End: 12-16-2024 Patient encounter procedure 12/16/2024 8:30 AM EDT Office Visit [facility] [address] [place] [address] Janene Lew, ELIER [address] [place] [phone] [facility] Start: 12-15-2024 Influenza vaccination Influenza Vaccine (#1) [facility] Start: 12-04-2024 End: 12-04-2024 Patient encounter procedure 12/04/2024 8:40 AM EDT Office Visit [facility] [address] [place] [phone] Janene Lew, [employer] [address] [place] [phone] [facility] Start: 11-03-2024 End: 11-03-2024 Patient encounter procedure [facility] 230 Comment on above: Arrived Start: 10-20-2024 End: 10-20-2024 Patient encounter procedure 10/20/2024 10:30 AM EDT Office Visit [facility] [address] [place] [phone] Marya Castorena DO [address] [place] [address] [facility] 230 Start: 10-04-2024 End: 11-03-2025 MG Breast - bilateral Screening Bilateral screening mammogram Imaging Routine Encounter for screening mammogram for malignant neoplasm of breast Expected: 10/04/2024 (Approximate), Expires: 11/03/2025 [facility] Work Phone: Comment on above: Expected: 10/04/2024 (Approximate), Expi res: 11/03/2025 Start: 09-27-2024 Screening for malignant neoplasm of breast Mammogram [facility] Start: 09-16-2024 Hemoglobin A1c measurement Diabetes: Hemoglobin A1C [facility] Start: 09-03-2024 End: 09-03-2024 Patient encounter procedure 09/03/2024 9:40 AM EDT Office Visit [facility] [address] [place] [phone] Janene Lew NP [address] [place] [phone] [facility] Start: 07-15-2024 End: 07-15-2025 XR Ankle - left 3 Views XR ankle 3+ views left Imaging Routine Acute left ankle pain Expected: 07/15/2024, Expires: 07/15/2025 [facility] Work Phone: Comment on above: Expected: 07/15/2024, Expires: Start: 07-15-2024 End: 07-15-2025 XR Foot - left 3 Views XR foot 3+ views left Imaging Routine Acute foot pain, left Expected: 07/15/2024, Expires: 07/15/2025 [facility] Comment on above: Expected: 07/15/2024, Expires: Start: 06-19-2024 End: 06-19-2024 Patient encounter procedure 06/19/2024 10:15 AM EST Office Visit [facility] [address] [place] [phone] Marya Castorena DO [address] [place] [address] [facility] 230 Start: 06-16-2024 End: 06-16-2024 Patient encounter procedure 06/16/2024 9:15 AM EST Office Visit [facility] [address] [place] [address] DoritaMarya munoz DO [address] [place] [address] Arrived [facility] 230 Comment on above: Arrived Start: 05-21-2024 Hemoglobin A1c measurement Diabetes: Hemoglobin A1C [facility] Start: 05-10-2024 Urine screening for protein Diabetes: Urine Protein Screening [facility] Start: 03-06-2024 End: 03-06-2025 25-hydroxyvitamin D3 [Mass/volume] in Serum or Plasma Vitamin D 25 hydroxy Lab Routine Vitamin D deficiency Expected: 03/06/2024 (Approximate), Expires: 03/06/2025 [facility] Comment on above: Expected: 03/06/2024 (Approximate), Expi res: 03/06/2025 Start: 03-06-2024 End: 03-06-2025 CBC W Auto Differential panel - Blood CBC and differential Lab Routine Coronary arteriosclerosis (CMS/HCC) Stage 3b chronic kidney disease (HCC) (CMS/HCC) Expected: 03/06/2024 (Approximate), Expires: 03/06/2025 [facility] Work Phone: Comment on above: Expected: 03/06/2024 (Approximate), Expi res: 03/06/2025 Start: 03-06-2024 End: 03-06-2025 Cobalamin (Vitamin B12) [Mass/volume] in Serum or Plasma Vitamin B12 Lab Routine Vitamin B12 deficiency Expected: 03/06/2024 (Approximate), Expires: 03/06/2025 [facility] Comment on above: Expected: 03/06/2024 [...] D deficiency Expected: 03/06/2024 (Approximate), Expires: 03/06/2025 [facility] Comment on above: Expected: 03/06/2024 (Approximate), Expi res: 03/06/2025 Start: 03-06-2024 End: 03-06-2025 Ferritin [Mass/volume] in Serum or Plasma Ferritin Lab Routine H/O bariatric surgery Expected: 03/06/2024 (Approximate), Expires: 03/06/2025 [facility] Comment on above: Expected: 03/06/2024 (Approximate), Expi res: 03/06/2025 Start: 03-06-2024 End: 03-06-2025 Iron and Iron binding capacity panel - Serum or Plasma Iron level Lab Routine H/O bariatric surgery Expected: 03/06/2024 (Approximate), Expires: 03/06/2025 [facility] Comment on above: Expected: 03/06/2024 (Approximate), Expi res: 03/06/2025 Start: 03-06-2024 End: 03-06-2025 Lipid 1996 panel - Serum or Plasma Lipid panel Lab Routine Coronary arteriosclerosis (CMS/HCC) Expected: 03/06/2024 (Approximate), Expires: 03/06/2025 [facility] Comment on above: Expected: 03/06/2024 (Approximate), Expi res: 03/06/2025 Start: 03-06-2024 End: 03-06-2025 Microalbumin/Creatinine panel in random Urine Microalbumin / creatinine, urine ratio Lab Routine Primary hypertension (CMS/HCC) Stage 3b chronic kidney disease (HCC) (CMS/HCC) Expected: 03/06/2024 (Approximate), Expires: 03/06/2025 [facility] Comment on above: Expected: 03/06/2024 (Approximate), Expi res: 03/06/2025 Start: 03-06-2024 End: 03-06-2025 Urinalysis complete panel - Urine Urinalysis with reflex microscopic (clean catch) Lab Routine Primary hypertension (CMS/HCC) Stage 3b chronic kidney disease (HCC) (CMS/HCC) Expected: 03/06/2024 (Approximate), Expires: 03/06/2025 [facility] Comment on above: Expected: 03/06/2024 (Approximate), Expi res: 03/06/2025 Start: 03-06-2024 End: 03-06-2024 Patient encounter procedure [facility] Comment on above: Spinal stenosis of [...] (BMI) of 45.0 to 49.9 in adult ([facility]/HCC); Bipolar affective disorder, remission status unspecified ([facility]/HCC); Generalized anxiety disorder ([facility]); Vitamin D deficiency; Vitamin B12 deficiency; H/O bariatric surgery Start: 02-19-2024 End: 02-19-2024 Patient encounter procedure 02/19/2024 9:30 AM EST Office Visit [facility] [address] [place] [phone] Marya Castorena DO [address] [place] [address] [facility] 230 Start: 02-14-2024 Influenza vaccination Influenza Vaccine (#1) [facility] Comment on above: Postponed from 12/16/2023 (Patient Does Not Have Time) Start: 12-25-2023 Hemoglobin A1c measurement Diabetes: Hemoglobin A1C [facility] Start: 12-05-2023 End: 12-04-2024 Basic metabolic 1998 panel - Serum or Plasma Basic metabolic panel Lab Routine Left lower quadrant abdominal pain Expected: 12/05/2023 (Approximate), Expires: 12/04/2024 [facility] Comment on above: Expected: 12/05/2023 (Approximate), Expi res: 12/04/2024 Start: 12-05-2023 End: 12-04-2024 CBC W Auto Differential panel - Blood CBC and differential Lab Routine Left lower quadrant abdominal pain Expected: 12/05/2023 (Approximate), Expires: 12/04/2024 [facility] Comment on above: Expected: 12/05/2023 (Approximate), Expi res: 12/04/2024 Start: 12-05-2023 End: 12-04-2024 XR Abdomen Single view XR ABDOMEN 2 VIEW Imaging Routine Left lower quadrant abdominal pain Expected: 12/05/2023, Expires: 12/04/2024 [facility] Work Phone: Comment on above: Expected: 12/05/2023, Expires: Start: 12-05-2023 End: 12-05-2023 Patient encounter procedure 12/05/2023 8:40 AM EDT Office Visit [facility] [address] [place] [address] Janene Lew, ELIER [address] [place] [address] Morbid (severe) obesity due to excess calories (CMS/HCC); Body mass index (BMI) 45.0-49.9, adult (CMS/HCC) [facility] Comment on above: Morbid (severe) obesity due to excess ca lories (CMS/HCC); Body mass index (BMI) 45.0-49.9, adult ([facility]/HCC) Start: 11-01-2023 [facility] Start: 10-02-2023 [facility] Start: 10-01-2023 Referral to shirt cleaner [facility] Start: 10-01-2023 Hospital admission [facility] Start: 05-17-2023 Bacteria identified in Urine by Culture [facility] Start: 05-18-2019 Screening for malignant neoplasm of cervix Pap Smear [facility] Start: 2000 Screening for malignant neoplasm of cervix HPV/Cotest [facility] Start: 1970 Screening for malignant neoplasm of colon [facility] Patient Education [facility] Work Phone: Patient referral [facility] Work Phone: Renal function 1999 panel - Serum or Plasma [facility] Renal function 1999 panel - Serum or Plasma [facility] Immunizations Immunization Date Immunization Notes Care Provider Fa cili 01-24-2024 SARS-COV-2 (COVID-19 ) vaccine, mRNA, spike protein, LNP, PF, saravanan-sucrose, 30 mcg/0.3 mL Marya Petznick DO Work Phone: [facility] 01-24-2024 Seasonal, trivalent, recombinant, injectable influenza vaccine, preservative free Marya Petznick DO Work Phone: [facility] 01-24-2024 influenza virus vaccine, unspecified formulation Marya Petznick DO Work Phone: [facility] 02-09-2023 influenza, injectabl e, quadrivalent, preservative free Janene Aichholz [employer] Work Phone: [facility] 02-09-2023 influenza virus vaccine, unspecified formulation Janene Aichholz [employer] Work Phone: [facility] 07-03-2022 hepatitis A and hepatitis B vaccine Janene Aichholz [employer] Work Phone: [facility] 07-03-2022 zoster vaccine recombinant Janene Aichholz [employer] Work Phone: [facility] 01-20-2022 hepatitis A and hepatitis B vaccine Janene Aichholz [employer] Work Phone: [facility] 12-19-2021 hepatitis A and hepatitis B vaccine Janene Aichholz [employer] Work Phone: [facility] 12-19-2021 influenza, injectabl e, quadrivalent, preservative free Janene Aichholz [employer] Work Phone: [facility] 12-19-2021 tetanus toxoid, redu drew diphtheria toxoid, and acellular pertussis vaccine, adsorbed Janene Aichholz [employer] Work Phone: [facility] 12-19-2021 zoster vaccine recombinant Janene Aichholz [employer] Work Phone: [facility] 05-17-2021 COVID-19 mRNA, Comirnaty (Pfizer) Janene Aichholz Work Phone: [facility] 05-16-2021 Pfizer Purple Cap SARS-CoV-2 Vaccination Janene Aichholz [employer] Work Phone: [facility] 09-06-2020 COVID-19 mRNA, Comirnaty (Pfizer) Janene Aichholz Work Phone: [facility] 08-17-2020 Pfizer Purple Cap SARS-CoV-2 Vaccination Janene Aichholz [employer] Work Phone: [facility] 08-16-2020 COVID-19 mRNA, Comirnaty (Pfizer) Janene Aichholz Work Phone: [facility] 03-10-2020 influenza, injectabl e, quadrivalent, preservative free Janene Aichholz [employer] Work Phone: [facility] 03-10-2020 pneumococcal polysaccharide vaccine, 23 valent Janene Aichholz [employer] Work Phone: [facility] 02-16-2020 influenza, seasonal, injectable Janene Aichholz [employer] Work Phone: [facility] 02-16-2020 pneumococcal polysaccharide vaccine, 23 valent Janene Aichholz [employer] Work Phone: [facility] 01-31-2019 influenza, injectabl e, quadrivalent, preservative free Janene Aichholz Work Phone: [facility] 01-31-2019 influenza, injectabl e, quadrivalent, contains preservative Christian Hamilton Other [facility] [employer] Other 03-15-2018 influenza, injectabl e, quadrivalent, preservative free Janene Aichholz Work Phone: [facility] 03-15-2018 influenza, injectabl e, quadrivalent, contains preservative Christian Hamilton Other [facility] [employer] Other 02-03-2017 influenza, injectabl e, quadrivalent, preservative free Janene Aichholz [employer] Work Phone: [facility] 04-16-2011 pneumococcal conjuga te vaccine, 13 valent Janene Aichholz [employer] Work Phone: [facility] 01-14-1997 pneumococcal polysaccharide vaccine, 23 valent Janene Aichholz [employer] Work Phone: [facility] Healthcare Payers Date Payer Category Payer Private Health Insurance [id number] 2023 [facility] [id number] 2023 Unknown [id number] 2022 Self-pay [id number] 2022 Medicaid [id number] [id number] 2022 Private Health Insurance 2022 Unknown 2010 Self-pay [id number] 1970 Unknown [id number] 2.16.840.1.886765.3.579.2. 647 1970 Unknown [id number] 2.16.840.1.028828.3.579.2. 593 1970 Unknown [id number] 2.16.840.1.557763.3.579.2. 593 1970 Unknown [id number] 2.16.840.1.288432.3.579.2. 593 1970 Unknown [id number] 2.16.840.1.857528.3.579.2. 593 1970 Unknown [id number] 2.16.840.1.041659.3.579.2. 593 1970 Unknown [id number] 2.16.840.1.328415.3.579.2. 593 1970 Unknown [id number] 2.16.840.1.077223.3.579.2. 593 1970 Unknown [id number] 2.16.840.1.259126.3.579.2. 593 1970 Unknown [id number] 2.16.840.1.227473.3.579.2. 593 1970 Unknown [id number] 2.16.840.1.289474.3.579.2. 593 1970 Unknown [id number] 2.16.840.1.956160.3.579.2. 593 1970 Unknown [id number] 2.16.840.1.741823.3.579.2. 593 1970 Unknown [id number] 2.16.840.1.818948.3.579.2. 593 1970 Unknown [id number] 2.16.840.1.907561.3.579.2. 593 1970 Unknown [id number] 2.16.840.1.866283.3.579.2. 593 1970 Unknown [id number] 2.16.840.1.754252.3.579.2. 593 1970 Unknown [id number] 2.16.840.1.438303.3.579.2. 593 1970 Unknown [id number] 2.16.840.1.945258.3.579.2. 718 1970 Unknown [id number] 2.16.840.1.349611.3.579.2. 196 1970 Unknown [id number] 2.16.840.1.015072.3.579.2. 196 1970 Unknown [id number] 2.16.840.1.143016.3.579.2. 196 1970 Unknown [id number] 2.16.840.1.692847.3.579.2. 196 1970 Unknown [id number] 2.16.840.1.698496.3.579.2. 196 1970 Unknown [id number] 2.16.840.1.477015.3.579.2. 1259 1970 Unknown [id number] 2.16.840.1.967980.3.579.2. 1259 1970 Unknown [id number] 2.16.840.1.916232.3.579.2. 1259 1970 Unknown [id number] 2.16.840.1.535486.3.579.2. 1259 1970 Unknown [id number] 2.16.840.1.825811.3.579.2. 9 1970 Unknown [id number] 2.16.840.1.996306.3.579.2. 1259 1970 Unknown [id number] 2.16.840.1.002896.3.579.2. 9 1970 Unknown [id number] 2.16.840.1.158290.3.579.2. 1259 1959 Private Health Insurance [id number] 2.16.840.1.586172.19 1959 Unknown [id number] 2.16.840.1.479261.19 Medicaid Anthem [place] Medicaid [id number] Private Health Insurance [id number] 2.840.1.816904.19 Unknown [place] BC/BS [id number] Unknown [id number] 2.840.1.505059.3.579.2. 531 Unknown [id number] 2.84.1.074417.3.579.2. 531 Social History Date Type Detail Facility Unknown if ever smoked [employer] Other Start: 05-02-2023 End: 11-03-2024 Sex Assigned At [facility] Start: 08-12-2021 End: 09-20-2023 Tobacco smoking status HIIS Never smoked tobacco (finding) [facility] Start: 1970 Sex Assigned At Female F [facility] Start: 09-20-2023 Tobacco use and exposure Smokeless tobacco non-user [facility] Start: 02-19-2024 End: 11-03-2024 Alcoholic beverage intake Lifetime non-drinker (finding) [facility] Start: 05-02-2023 End: 11-03-2024 History of Social function [facility] Within [...] got money to buy more. Sometimes true [facility] Start: 05-01-2023 Alcohol Comment caffeine: coff ee, soda/pop [facility] Start: 1970 Sex assigned at Not on file [place] [facility] NEGATED: Highlighted rowStart: NINF History of tobacco use Passive smoker [facility] Medical Equipment Procedure Code Equipment Code Equipment Origin al Text Equipment Identifier Dates Once a day Use a s instructed [id number] Start: 07-02-2023 End: 07-01-2024 Fsbs bid [id number] Start: 11-19-2023 End: 11-03-2024 Checking bg leve ls once a day [id number] Start: 11-03-2024 Checking bg leve ls once a day [id number] Start: 11-03-2024 Goals Date Patient Goal Desired Activity /State Functional Status Date Assessment Result Facility 11-03-2024 Patient Health [facility] ionnaire 2 item (PHQ-2) [Reported] [facility] 10-02-2023 Functional status Patient at Baseline [facility] Work Phone: Mental Status Date Assessment Result Facility 10-02-2023 Cognitive function Cognitive Sta tus Patient at Baseline [facility] Work Phone: Clinical Notes 08-30-2021 to 11-03-2024 Mayra Castorena DO - 11/03/2024 1:31 PM Megan Castorena, - 11/03/2024 9:45 AM TOSHIA PABLO - 09/03/2024 9:40 AM Jian Lew NP - 09/03/2024 9:40 AM EDTPatient Instructions Note Date & Type Note Facility 11-03-2024 History of Present illness Narrative Associated Problem(s): Type 2 diabetes mellitus with stage 3a chronic kidney disease, without long-term current use of insulin (HCC) During the appointment today all pertinent labs, [...] , Instructions given today include: Dietary education. Encouraged her to get into a regular exercise routine with some resistance training. If she is still struggling with weight loss then will consider increasing her mounjaro. Images from the original note were not included. Sherly Humphreys is a 53 y.o. female presents with chief complaint of Diabetes HPI: Diabetes Mellitus Follow-up: Sherly Humphreys is here for follow-up evaluation of diabetes mellitus. The initial diagnosis of diabetes was made around 2005 Complications include: nephropathy Hx of diabetes medications tried: meformin ( gi upset) ,victoza, jardiance She has not been checking her blood glucose Last A1c: 5.5 on 06/16/2024 Eye exam: 09/06/2023 Current concerns include: Lost 11 lbs since last visit. Feels like she can't lose any more tomy the past 2 months Bg levels: has not been checking Diet: Watching carb and sugar intake. Drinks: water, crystal light packets and cirkul water bottles Exercise: walking a couple days a week (45 minutes) Hypoglycemia: she feels light headed and shaky on occasion before a meal- improves when she eats/drinks SUBJECTIVE: PROBLEM LIST SOCIAL ALLERGIES: Patient Active Problem List Diagnosis Spinal stenosis of thoracolumbar region Spinal stenosis of lumbar region at multiple levels URIEL (obstructive sleep apnea) Hypertension Coronary arteriosclerosis Bradycardia GERD (gastroesophageal reflux disease) Microscopic hematuria Lower extremity edema Type 2 diabetes mellitus with stage 3a chronic kidney disease, without long-term current use of insulin (HCC) Seasonal allergies Migraine headache Hypomagnesemia Hyperlipidemia Depression Encounter for screening mammogram for malignant neoplasm of breast Colon cancer screening Heel pain, bilateral Insomnia Dyspnea Irritable bowel syndrome with diarrhea H/O bariatric surgery Abdominal wall hernia Nephrolithiasis Lumbar disc herniation Degenerative disc disease, lumbar Elevated liver enzymes Bipolar disorder (HCC) Generalized anxiety disorder Chronic diastolic heart failure (HCC) Muscle spasm Stage 3b chronic kidney disease ([facility]-HCC) Displacement of lumbar intervertebral disc with radiculopathy Hypertensive nephropathy History of PTCA Headache, tension-type History of colon polyps Restless leg syndrome Acute kidney injury superimposed on CKD Hyperkalemia Hyperuricemia Iron deficiency Vitamin B12 deficiency Vitamin D deficiency Anemia of renal disease Adenomatous polyp of cecum Diverticulosis large intestine w/o perforation or abscess w/o bleeding Class 2 severe obesity due to excess calories with serious comorbidity and body mass index (BMI) of 36.0 to 36.9 in adult ([facility]-HCC) Type 2 diabetes mellitus with other circulatory complications (HCC) Acute foot pain, left Acute left ankle pain Lumbar facet arthropathy Encounter for wellness examination in adult Social History Tobacco Use Smoking status: Never Passive exposure: Never Smokeless tobacco: Never Vaping Use Vaping status: Never Used Substance Use Topics Alcohol use: Never Comment: caffeine: coffee, soda/pop Drug use: Never Allergies Allergen Reactions Prochlorperazine Unknown Other Reaction(s): Other, Seizure seizures Sulfamethoxazole Rash Other Reaction(s): Other Empagliflozin jardiance Keflex [Cephalexin] Nexium [Esomeprazole] GI intolerance Penicillins Phenergan [Promethazine] Prilosec [Omeprazole] GI intolerance Protonix [Pantoprazole] GI intolerance Zolpidem Unknown Other Reaction(s): Unknown Reaction Sulfamethoxazole-Trimethoprim Rash Other Reaction(s): other, Unknown Synopsis [facility] 11/03/2024 10:14 10/08/2024 00:00 Antidiabetic medications Tirzepatide INJECT 7.5 MG SUBCUTANEOUSLY UNDER THE SKIN 1 TIME PER WEEK (7.5 MG/0.5ML SOAJ) -Discontinued Tirzepatide 7.5 mg q7 days SC (7.5 MG/0.5ML SOAJ) 7.5 mg q7 days SC (7.5 MG/0.5ML SOAJ) [place] [facility] [place]EMO[place] A1C/HEMOGLOBIN.TOTAL:MFR:PT:BLD: QN: 5.2 Outpatient prescription The ASCVD Risk score (Juli [...] Negative for polydipsia, polyphagia and polyuria. OBJECTIVE: 11/03/2024 9:50 AM 09/03/2024 9:40 AM 06/16/2024 9:07 AM Vitals BMI 36.65 kg/m2 37.59 kg/m2 38.37 kg/m2 Systolic 124 102 136 Diastolic 78 72 82 Heart Rate 56 67 61 Temp 98 F 98.5 F 98.2 F Resp 22 Height (in) 5' 7 5' 7 Weight (lb) 234 240 245 Visit Report Report Report Report Physical Exam [...] without long-term current use of insulin (HCC) During the appointment today all pertinent labs, [...] , Instructions given today include: Dietary education. Encouraged her to get into a regular exercise routine with some resistance training. If she is still struggling with weight loss then will consider increasing her mounjaro. Relevant Orders POCT glycosylated hemoglobin (Hb A1C) docked device (Completed) Class 2 severe obesity due to excess calories with serious comorbidity and body mass index (BMI) of 36.0 to 36.9 in adult ([facility]-HCC) Type 2 diabetes mellitus with other circulatory complications (HCC) - Primary Other Visit Diagnoses Type 2 diabetes mellitus with stage 4 chronic kidney disease, without long-term current use of insulin (HCC) Type 2 diabetes mellitus without complication, without long-term current use of insulin (HCC) Relevant Medications Blood Glucose Monitoring Suppl (True Metrix Air Glucose Meter) w/Device kit glucose blood (True Metrix Blood Glucose Test) test strip Lancets 33G misc Follow up in about 6 months (around 05/06/2025) for Recheck. Patient's Medications New Prescriptions GLUCOSE BLOOD (TRUE METRIX BLOOD GLUCOSE TEST) TEST STRIP Checking bg levels once a day LANCETS 33G MISC Checking bg levels once a day Previous Medications AMLODIPINE (NORVASC) 10 MG TABLET Take 1 tablet (10 mg) by mouth Daily ARIPIPRAZOLE (ABILIFY) 30 MG TABLET Take 30 mg by mouth Daily ASPIRIN (ASPIRIN ADULT LOW DOSE) 81 MG EC TABLET Take 81 mg by mouth in the morning. ATORVASTATIN (LIPITOR) 80 MG TABLET Take 80 mg by mouth in the morning. BENZTROPINE (COGENTIN) 0.5 MG TABLET BUSPIRONE (BUSPAR) 30 MG TABLET Take 30 [...] CAPSULE Take 20 mg by mouth Daily TAKE 1 CAPSULE BY MOUTH ONCE DAILY TAKE WITH 40 MG FOR A TOTAL OF 60 MG DAILY FLUOXETINE (PROZAC) 40 MG CAPSULE Take 40 mg by mouth Daily FLUTICASONE (FLONASE) 50 MCG/ACT NASAL SPRAY Administer 2 sprays into each nostril Daily GABAPENTIN (NEURONTIN) 600 MG TABLET Take 1 tablet (600 mg) by mouth 2 (two) times a day as needed (RLS) ISOSORBIDE MONONITRATE ER (IMDUR) 30 MG 24 HR TABLET Take 30 mg by mouth in the morning. Do not crush or chew.. METOPROLOL SUCCINATE XL (TOPROL-XL) 12.5 MG 24 [...] daily TIRZEPATIDE (MOUNJARO) 7.5 MG/0.5ML SOLUTION AUTO-INJECTOR INJECT 7.5 MG SUBCUTANEOUSLY ONCE A WEEK TIZANIDINE (ZANAFLEX) 4 MG TABLET Take 1 tablet (4 mg) by mouth every 8 (eight) hours if needed for muscle spasms VRAYLAR 6 MG CAPSULE Take 1 capsule by mouth Daily Modified Medications Modified Medication Previous Medication BLOOD GLUCOSE MONITORING SUPPL (TRUE METRIX AIR GLUCOSE METER) W/DEVICE KIT Blood Glucose Monitoring Suppl (True Metrix Air Glucose Meter) w/Device kit 1 each Daily 1 each Daily Discontinued Medications FUROSEMIDE (LASIX) 20 MG TABLET Take 1 tablet (20 mg) by mouth in the morning. May increase to 2 pills IF worsening in leg swelling. LANCETS (ONETOUCH DELICA PLUS [id number]) [facility] [place]sbs [place] I have reviewed and reconciled the history and medication list with the patient today. documented in this encounter [facility] 10-16-2024 Note [facility] Cardiology Clinic Note Chief Complaint: Patient is here today for surgery clearance. Patient states they found a problem while doing her pre op testing. Patient states she has no idea what they found and was told to see her material chaser. Patient complains of GARNER with walking really fast, lightheaded and dizziness when she bends over, it makes her feel like she is going to pass out. Patient denies any other cardiac symptoms. HPI: Sherly Humphreys is a 53 y.o. female With the above-mentioned disorder is [...] resolved She has no new cardiovascular symptoms. Update 10/16/2024: She is here for preop clearance for spine surgery She remains relatively asymptomatic; no chest pain, shortness of breath is stable, no orthopnea or paroxysmal tunnel dyspnea, no lower extremity edema. She has continued to have episodic lightheadedness, dizziness and near syncope. This continued after discontinuation of the suspected culprit medication.She denies palpitations. Review of Systems Cardiovascular: Positive for dyspnea on exertion. Neurological: Positive for dizziness and headaches. Past Medical History She has no past [...] calcium, Empagliflozin, Esomeprazole magnesium, Omeprazole, Pantoprazole, Promethazine, Zolpidem, and Sulfamethoxazole-trimethoprim Medications Current Outpatient Medications: amLODIPine [...] (Tricor) 145 mg tablet, Take 1 tablet (145 mg) by mouth in the morning., Disp: 90 tablet, Rfl: 3 ferrous sulfate 325 (65 Fe) MG tablet, [...] response, seek medical attention/go to the nearest ER, Disp: 90 tablet, Rfl: 0 pioglitazone (Actos) 45 mg tablet, , Disp: , Rfl: sacubitril-valsartan (more content not included)... [facility] 09-03-2024 History of Present illness Narrative Sore on back that wont heal- pt states she has had it for 6m. Pt states that she thought it was a pimple and she can only reach it with the tips of her fingers and would try to scratch or squeeze it. Pt states that the sore has never opened and nothing has came out of it. Pt has never put anything on it as well. Sinus headache/pressure Pt takes zyrtec and Flonase nasal spray. Fluoxetine/Prozac [address]mg [address] cut BP med in half twice daily (entresto) Pt needs refills on the amlodipine Images from the original note were not included. Sherly Humphreys is a 53 y.o. female presents with chief complaint of Annual Exam and Hypertension HPI: Diet:balanced, decrease in appetite w mounjaro Activity: no , d/t back pain Mental Health Concerns: depression/anxiety/bipolar disorder Falls in the last year: yes Still driving: yes Do you pay your bills: yes Any hearing problems: no Any Vision problems: glasses, last eye exam 1 year ago Any Hospitalizations in the last year: no Specialist: Shalini, [facility] Cardiology, [place], Dr Huffman HCPOA/Living Will: no Concerns: Sore on back that wont heal- pt states she has had it for 6m. Pt states that she thought it was a pimple and she can only reach it with the tips of her fingers and would try to scratch or squeeze it. Pt states that the sore has never opened and nothing has came out of it. Pt has never put anything on it as well. Sinus headache/pressure Pt takes zyrtec and Flonase nasal spray. Fluoxetine/Prozac [address] cut BP med in half twice daily (entresto) Pt needs refills on the amlodipine Hypertension This is a chronic problem. The current episode started more than 1 year ago. The problem is unchanged. The problem is controlled. Pertinent negatives include no blurred vision, chest pain, peripheral edema (occ) or shortness of breath. There are no associated agents to hypertension. Risk factors for coronary artery disease include diabetes mellitus, dyslipidemia, obesity and sedentary lifestyle. Past treatments include calcium channel blockers and angiotensin blockers. The current treatment provides significant improvement. Hypertensive end-organ damage includes kidney disease, CAD/LA and heart failure. There is no history of PVD. SUBJECTIVE: MEDICATIONS: Current Outpatient Medications Medication Instructions amLODIPine (NORVASC) 10 mg, Oral, Daily ARIPiprazole (ABILIFY) 30 mg, Daily aspirin (ASPIRIN ADULT LOW DOSE) 81 mg, Daily atorvastatin (LIPITOR) 80 mg, Daily benztropine (Cogentin) 0.5 MG tablet Blood Glucose Monitoring Suppl (True Metrix Air Glucose Meter) w/Device kit 1 each, Does not apply, Daily busPIRone (BUSPAR) 30 mg, 2 times daily cetirizine (ZYRTEC) 10 mg, Daily cholecalciferol (VITAMIN D-3) 5,000 Units, Daily fenofibrate (TRICOR) 145 mg, Oral, Daily FLUoxetine (PROZAC) 40 mg, Daily fluticasone (Flonase) 50 MCG/ACT nasal spray 2 sprays, Each Nostril, Daily furosemide (LASIX) 20 mg, Oral, Daily, May increase to 2 pills IF worsening in leg swelling gabapentin (NEURONTIN) 600 mg, Oral, 2 times daily PRN isosorbide mononitrate ER (IMDUR) 30 mg, Daily Lancets (OneTouch Delica Plus [id number]) mis Fsbs bid metoprolol succinate XL (TOPROL-XL) 12.5 mg, Daily nitroglycerin (Nitrostat) 0.[address] 1 TABLET UNDER TONGUE FOR CHEST PAIN. CALL 911 IF NO IMPROVEMENT AFTER 5 MIN. REPEAT DOSE TWICE IF NEEDED oxyCODONE-acetaminophen (Percocet) 7.5-325 MG tablet 1 tablet, 2 times daily rOPINIRole (REQUIP) 0.25 mg, Oral, Nightly sacubitril-valsartan (Entresto) 49-51 MG tablet 0.5 tablets, 2 times daily senna-docusate sodium (Senokot-S) 8.6-50 MG tablet 1 tablet, Daily Tirzepatide (Mounjaro) 7.5 MG/0.5ML solution auto-injector INJECT 7.5 MG SUBCUTANEOUSLY UNDER THE SKIN 1 TIME PER WEEK tiZANidine (ZANAFLEX) 4 mg, Oral, Every 8 [...] Unknown REVIEW OF SYMPTOMS: Review of Systems Eyes: Negative for blurred vision. Respiratory: Negative for shortness of breath. Cardiovascular: Negative for chest pain. PAST MEDICAL HISTORY Past Medical History: Diagnosis [...] herniation 07/02/2023 Microscopic hematuria 04/30/2023 Migraine headache ([facility]) 04/30/2023 Myalgia Nephrolithiasis 07/02/2023 URIEL (obstructive sleep apnea) 04/30/2023 [id number] condition Restless leg syndrome Seasonal allergies 04/30/2023 Spinal stenosis of lumbar region at multiple levels 04/30/2023 Spinal stenosis of thoracolumbar region 04/30/2023 Stage 3 chronic kidney disease due to type 2 diabetes mellitus (HCC) ([facility]) 04/30/2023 Swelling of both lower extremities 04/30/2023 [...] in her mother. OBJECTIVE: Visit Vitals BP 102/72 (BP Location: Left arm, Patient Position: Sitting, BP Cuff Size: Adult long) Pulse 67 Temp 98.5 F (Temporal) Resp 22 Wt 240 lb SpO2 97% BMI 37.59 kg/m Smoking Status Never BSA 2.27 m Physical Exam Vitals and nursing note reviewed. Constitutional: General: She is not in acute distress. Appearance: Normal appearance. She is obese. HENT: Head: Normocephalic and atraumatic. Right Ear: Tympanic membrane and external ear normal. Left Ear: Tympanic membrane, ear canal and external ear normal. Nose: Congestion and rhinorrhea present. Mouth/Throat: Mouth: Mucous membranes are moist. Pharynx: No oropharyngeal exudate or posterior oropharyngeal erythema. Eyes: Extraocular Movements: Extraocular movements intact. Conjunctiva/sclera: Conjunctivae normal. Neck: Vascular: No carotid bruit. Cardiovascular: Rate and Rhythm: Normal rate and regular rhythm. Pulses: Normal pulses. Heart sounds: Normal heart sounds. No murmur heard. Pulmonary: Effort: Pulmonary effort is normal. Breath sounds: Normal breath sounds. No wheezing or rhonchi. Abdominal: General: Bowel sounds are normal. There is no distension. Palpations: Abdomen is soft. There is no mass. Tenderness: There is no abdominal tenderness. Musculoskeletal: General: Normal range of motion. Cervical back: Normal range of motion and neck supple. Right lower leg: No edema. Left lower leg: No edema. Lymphadenopathy: Cervical: No cervical adenopathy. Skin: General: Skin is warm and dry. Capillary Refill: Capillary refill takes 2 to 3 seconds. Findings: No rash. Comments: Area of question on back no s/s characteristics to suggest a skin cancer or abcess Neurological: General: No focal deficit present. Mental Status: She is alert and oriented to person, place, and time. Psychiatric: Mood and Affect: Mood normal. Behavior: Behavior normal. Thought Content: Thought content normal. Judgment: Judgment normal. ASSESSMENT AND PLAN: No follow-ups on file. Problem List Items Addressed This Visit Hypertension ([facility]) Please check blood pressure daily and record DASH diet Limit caffeine Take medication as directed Contact office if chest pain, pressure, dizziness, shortness of breath, swelling legs Recommend slow position changes Continue current meds Cont ASA, statin, b seema Relevant Medications amLODIPine (Norvasc) 10 MG tablet Type 2 diabetes mellitus with stage 3a chronic kidney disease, without long-term current use of insulin (HCC) ([facility]) Check blood sugars daily, notify if <70 [...] on 06/16/24 Pt is managed by dr castorena Hyperlipidemia ([facility] [place]) On statin therapy as well as fenofibrate Check labs yearly and prn dose changes Encounter for screening mammogram for malignant neoplasm of breast Relevant Orders Bilateral screening mammogram Chronic diastolic heart failure ([facility] [place]) Follows with cardiology Current meds: statin, lasix, entresto, b seema, and amlodipine Recommend daily weight, limit sodium, if weight increases by more than 3 pounds in 24 hours notify cardiology Stage 3b chronic kidney disease (HCC) ([facility] [place]) Is established with nephrology for mgmt/monitoring Continue to keep blood pressure and DM at goal Class 2 severe obesity due to excess calories with serious comorbidity and body mass index (BMI) of 38.0 to 38.9 in adult ([facility] [place]) Discussed with patient their BMI (actual, verses recommended). We have also discussed lifestyle modifications: attempts to perform physical activity as chronic conditions allow, also to monitor dietary intake: increasing protein/fruits/veggies and lowering carb intake (unless contraindicated). Limit sodas, juices, and sugary drinks. Has been demonstrating weight loss Approx 80 pounds in the last year, and is on mounjaro Encounter for wellness examination in adult - Primary Reviewed Ht/Wt/BMI Recommend eye exam yearly Recommend dental exams twice a year Balance work/leisure activities Exercises is recommended most days of the week (appropriate as chronic conditions allow) Follow up yearly and prn Associated Problem(s): Encounter for wellness examination in adult Reviewed Ht/Wt/BMI Recommend eye exam yearly Recommend dental exams twice a year Balance work/leisure activities Exercises is recommended most days of the week (appropriate as chronic conditions allow) Follow up yearly and prn Associated Problem(s): Hyperlipidemia ([facility] [place]) On statin therapy as well as fenofibrate Check labs yearly and prn dose changes Associated Problem(s): Type 2 diabetes mellitus with stage 3a chronic kidney disease, without long-term current use of insulin ([facility]) ([facility]) Check blood sugars daily, notify if <70 [...] on 06/16/24 Pt is managed by dr castorena Associated Problem(s): Class 2 severe obesity due to excess calories with serious comorbidity and body mass index (BMI) of 38.0 to 38.9 in adult ([facility]) Discussed with patient their BMI (actual, verses recommended). We have also discussed lifestyle modifications: attempts to perform physical activity as chronic conditions allow, also to monitor dietary intake: increasing protein/fruits/veggies and lowering carb intake (unless contraindicated). Limit sodas, juices, and sugary drinks. Has been demonstrating weight loss Approx 80 pounds in the last year, and is on mounjaro Associated Problem(s): Stage 3b chronic kidney disease (HCC) ([facility]) Is established with nephrology for mgmt/monitoring Continue to keep blood pressure and DM at goal Associated Problem(s): Chronic diastolic heart failure (CMS/HCC) Follows with cardiology Current meds: statin, lasix, entresto, b seema, and amlodipine Recommend daily weight, limit sodium, if weight increases by more than 3 pounds in 24 hours notify cardiology Associated Problem(s): GERD (gastroesophageal reflux disease) stable Associated Problem(s): Hypertension (CMS/HCC) Please check blood pressure daily and record DASH diet Limit caffeine Take medication as directed Contact office if chest pain, pressure, dizziness, shortness of breath, swelling legs Recommend slow position changes Continue current meds Cont ASA, statin, b esema documented in this encounter [facility] 09-03-2024 Instructions Janene Lew NP - 09/03/2024 9:[address] Rebolledo if we should change to Vit D2 once a week No other changes in meds or doses documented in this encounter [facility] 07-15-2024 History of Present illness Narrative Contact provider, had a fall the other day on porch, now left ankle and foot pain, would like an xray documented in this encounter [facility] 06-16-2024 History of Present illness Narrative Associated Problem(s): Type 2 diabetes mellitus with other circulatory complications ([facility]/HCC) During the appointment today all pertinent labs, [...] without long-term current use of insulin (HCC) ([facility]/HCC) Seasonal allergies Migraine headache ([facility]/HCC) Hypomagnesemia Hyperlipidemia ([facility]/HCC) Depression ([facility]) Encounter for screening mammogram for malignant neoplasm of breast Colon cancer screening Heel pain, bilateral Insomnia Dyspnea Irritable bowel syndrome with diarrhea H/O bariatric surgery Abdominal wall hernia Nephrolithiasis Lumbar disc herniation Degenerative disc disease, lumbar Elevated liver enzymes Bipolar disorder (CMS/HCC) Generalized anxiety disorder ([facility]/HCC) Chronic diastolic heart failure ([facility]/HCC) History of anuria E-coli UTI Muscle spasm Stage 3b chronic kidney disease (HCC) (CMS/HCC) Displacement of lumbar intervertebral disc with radiculopathy Hypertensive nephropathy ([facility]/HCC) History of PTCA Headache, tension-type History of colon polyps Dental infection Antibiotic-induced yeast infection Restless leg syndrome Acute kidney injury superimposed on CKD ([facility]) Hyperkalemia Hyperuricemia Iron deficiency Vitamin B12 deficiency Vitamin D deficiency Anemia of renal disease Adenomatous polyp of cecum Diverticulosis large intestine w/o perforation or abscess w/o bleeding Class 2 severe obesity due to excess calories with serious comorbidity and body mass index (BMI) of 38.0 to 38.9 in adult ([facility]) Left lower quadrant abdominal pain Type 2 diabetes mellitus with other circulatory complications ([facility]) Acute non-recurrent pansinusitis Social History Tobacco Use [...] mg Weekly SC (7.5 MG/0.5ML SOAJ) [place] [facility] [place]EMO[place] A1C/HEMOGLOBIN.TOTAL:MFR:PT:BLD: [...] without long-term current use of insulin (HCC) ([facility]) Relevant Orders POCT glycosylated hemoglobin (Hb A1C) docked device (Completed) Class 2 severe obesity due to excess calories with serious comorbidity and body mass index (BMI) of 38.0 to 38.9 in adult ([facility]) - Primary Type 2 diabetes mellitus with other circulatory complications ([facility]) During the appointment today all pertinent labs, [...] crush or chew.. LANCETS (ONETOUCH DELICA PLUS [id number]) MIS Fsbs bid METOPROLOL SUCCINATE XL (TOPROL-XL) 12.5 [...] the patient today. documented in this encounter [facility] 03-06-2024 History of Present illness [...] problems. Hypertensive end-organ damage includes kidney disease, CAD/LA and heart failure. Identifiable causes of hypertension [...] 30 mg, Daily Lancets (OneTouch Delica Plus [id number]) [facility] [place] Fsbs bid metoprolol succinate XL (TOPROL-XL) 12.5 [...] Abdominal wall hernia 07/02/2023 Anemia 04/30/2023 Anxiety 2009 Bradycardia 04/30/2023 Chest pain Chronic left shoulder [...] herniation 07/02/2023 Microscopic hematuria 04/30/2023 Migraine headache ([facility]) 04/30/2023 Myalgia Nephrolithiasis 07/02/2023 URIEL (obstructive sleep apnea) 04/30/2023 [id number] condition Restless leg syndrome Seasonal allergies 04/30/2023 [...] mgmt for oral medications and treatment plan [facility] pain mgmt, ?? Possible spinal cord stimulator [...] Microalbumin / creatinine, urine ratio Coronary arteriosclerosis ([facility]) Relevant Orders CBC and differential Comprehensive metabolic panel Lipid panel RESOLVED: Swelling of both lower extremities Lower extremity edema Continues to take lasix as directed Compression stockings Limiting sodium intake Elevated legs above level of heart as much as possible Relevant Orders Comprehensive metabolic panel Type 2 diabetes mellitus with stage 3a chronic kidney disease, without long-term current use of insulin ([facility]) ([facility]) Check blood sugars daily, notify if <70 [...] Relevant Orders Iron level Ferritin Bipolar disorder ([facility]) Continue with psych for management of her mental health Generalized anxiety disorder ([facility]) Continue with psych for management of symptoms and meds Stage 3b chronic kidney disease (HCC) ([facility]) Is established with nephrology for mgmt/monitoring Continue [...] (BMI) of 45.0 to 49.9 in adult ([facility]) Has lost approx 64 pounds since 07/07 [...] MG tablet Associated Problem(s): Generalized anxiety disorder ([facility]) Continue with psych for management of symptoms and meds Associated Problem(s): Bipolar disorder ([facility]) Continue with psych for management of her mental health Associated Problem(s): Class 3 severe obesity due to excess calories with serious comorbidity and body mass index (BMI) of 45.0 to 49.9 in adult ([facility]) Has lost approx 64 pounds since 07/07 [...] disease, without long-term current use of insulin ([facility]) ([facility]) Check blood sugars daily, notify if <70 [...] mgmt for oral medications and treatment plan [facility] pain mgmt, ?? Possible spinal cord stimulator Will complete her FMLA documented in this encounter [facility] 03-06-2024 Instructions Janene Lew NP - 03/06/2024 9:20 AM EST Call CPAP company: see if they need a compliance report, they should be able to down load that for you Keep up great work with diabetes and weight loss documented in this encounter [facility] 02-19-2024 History of Present illness Narrative Associated Problem(s): Type 2 diabetes mellitus with other circulatory complications ([facility]) During the appointment today all pertinent labs, [...] (obstructive sleep apnea) Hypertension (CMS/HCC) Coronary arteriosclerosis ([facility]) Bradycardia GERD (gastroesophageal reflux disease) Microscopic hematuria Swelling of both lower extremities Lower extremity edema Type 2 diabetes mellitus with stage 3a chronic kidney disease, without long-term current use of insulin (HCC) ([facility]) Seasonal allergies Migraine headache ([facility]) Hypomagnesemia Hyperlipidemia ([facility]) Depression ([facility]) Encounter for screening mammogram for malignant neoplasm of breast Colon cancer screening Heel pain, bilateral Insomnia Dyspnea Irritable bowel syndrome with diarrhea H/O bariatric surgery Abdominal wall hernia Nephrolithiasis Lumbar disc herniation Degenerative disc disease, lumbar Elevated liver enzymes Bipolar disorder ([facility]/HCC) Depressive disorder ([facility]) Generalized anxiety disorder ([facility]/HCC) Chronic diastolic heart failure ([facility]/HCC) History of anuria E-coli UTI Muscle spasm Stage 3b chronic kidney disease (HCC) ([facility]) Displacement of lumbar intervertebral disc with radiculopathy Hypertensive nephropathy ([facility]) History of PTCA Headache, tension-type Declining functional status History of colon polyps Dental infection Antibiotic-induced yeast infection Restless leg syndrome Acute kidney injury superimposed on CKD ([facility]) Hyperkalemia Hyperuricemia Iron deficiency Vitamin B12 deficiency Vitamin D deficiency Anemia of renal disease Adenomatous polyp of cecum Diverticulosis large intestine w/o perforation or abscess w/o bleeding Class 3 severe obesity due to excess calories with serious comorbidity and body mass index (BMI) of 45.0 to 49.9 in adult ([facility]) Left lower quadrant abdominal pain Type 2 diabetes mellitus with other circulatory complications ([facility]) Social History Tobacco Use Smoking status: Never [...] without long-term current use of insulin (HCC) ([facility]) Class 3 severe obesity due to excess calories with serious comorbidity and body mass index (BMI) of 45.0 to 49.9 in adult ([facility]) Type 2 diabetes mellitus with other circulatory complications ([facility]) - Primary During the appointment today all [...] morning. Do not crush or chew.. LANCETS (Hy-DriveTOUCH DELICA PLUS [id number]) [facility]sbs bid METOPROLOL SUCCINATE XL (TOPROL-XL) 12.5 [...] the patient today. documented in this encounter [facility] 12-18-2023 Note [facility] Cardiology Clinic Note Chief Complaint: Pt [...] S2 present. R (more content not included)... [facility] 12-05-2023 History of Present illness Narrative [...] Daily, Do not crush or chew. Lancets ([employer] TransTouch Delica Plus [id number]) [facility] Fsbs bid metoprolol succinate XL (TOPROL-XL) 12.5 [...] pain Clostridioides difficile diarrhea 07/02/2023 Coronary arteriosclerosis ([facility]) 04/30/2023 COVID-19 Degenerative disc disease, lumbar 07/02/2023 Depression ([facility]) 04/30/2023 Diabetes mellitus, type 2 (CMS/HCC) 04/30/2023 [...] Nephrolithiasis 07/02/2023 URIEL (obstructive sleep apnea) 04/30/2023 [id number] condition Restless leg syndrome Seasonal allergies 04/30/2023 [...] Visit Body mass index (BMI) 45.0-49.9, adult ([facility]/HCC) Stage 3b chronic kidney disease (HCC) (CMS/HCC) [...] CBC and differential documented in this encounter [facility] 08-14-2022 Evaluation note Encounter Date [...] - G89.29) Proceed with current treatment plan [facility] Other 03-20-2023 Evaluation note* Encounter Date Diagnosis [...] negative findings were considered in medical decision-making. [facility] Other 03-11-2023 Hospital Discharge instructions Additional Instructions [...] bowel control high fever or [facility] Work Phone: [phone]) [phone] Evaluation note* Encounter Date Diagnosis Assessment Notes [...] [facility] [place] [employer] Other 01-10-2023 Evaluation note* Encounter Date Diagnosis [...] obesity (ICD-10 - E66.01) Encouraged weight loss [facility] Other 10-12-2022 Evaluation note* Encounter Date Diagnosis [...] strap. A prescription was sent to the [employer] for new supplies throughout the year, as [...] sleepiness, or poor response to treatment. . [facility] Other 08-23-2022 Evaluation note* Encounter Date Diagnosis [...] of thoracolumbar intervertebral disc (ICD-10 - M51.25) [facility] Other 07-28-2022 Evaluation note* Encounter Date Diagnosis [...] a med check and PT follow up [facility] Other 06-16-2022 Evaluation note* Encounter Date Diagnosis [...] labor Sep, Thoracic myelopathy (ICD-10 - M47.14) [facility] Other 05-17-2022 Evaluation note* Encounter Date Diagnosis [...] Overall she is making a good recovery [facility] Other evaluation noteNo InformationNort [employer] Other evaluation noteNo assessment information available [facility] Work Phone: Evaluation note* Diagnosis Onset Date [...] disease reso lved Hypertensive nephropathy res olved [facility] Work Phone: Evaluation note* Diagnosis Onset Date [...] Vitamin D deficiency acute Hypertensive nephropathy res ved [facility] Work Phone: Evaluation note* Diagnosis Primary hypertension ([facility]/HCC)- Primary Unspecified essential hypertension Gastroesophageal reflux disease, unspecified whether esophagitis present Microscopic hematuria Lower extremity edema Edema Type 2 diabetes mellitus without complication, without long-term current use of insulin ([facility]) Stage 3 chronic kidney disease due to type 2 diabetes mellitus (HCC) ([facility]) Mixed hyperlipidemia ([facility]) Mixed hyperlipidemia Migraine without aura and without status migrainosus, not intractable ([facility]) Encounter for screening mammogram for malignant neoplasm of breast Colon cancer screening Special screening for malignant neoplasms, colon BMI 50.0-59.9, adult ([facility]) Heel pain, bilateral Type 2 diabetes mellitus without complication, without long-term current use of insulin ([facility])- Primary History of anuria Stage 3 chronic kidney disease due to type 2 diabetes mellitus (HCC) (CMS/HCC) BMI 50.0-59.9, adult ([facility]/HCC) URIEL (obstructive sleep apnea) Obstructive sleep apnea (adult) (pediatric) Primary hypertension ([facility]/HCC) Unspecified essential hypertension Chronic diastolic heart failure ([facility]/HCC) Chronic diastolic heart failure Depression, unspecified depression type ([facility]) Type 2 diabetes mellitus without complication, without long-term current use of insulin ([facility])- Primary Stage 3 chronic kidney disease due to type 2 diabetes mellitus (HCC) ([facility]) BMI 50.0-59.9, adult ([facility]) Lower extremity edema Edema Dental infection- Primary Type 2 diabetes mellitus with stage 3 chronic kidney disease, without long-term current use of insulin, unspecified whether stage 3a or 3b CKD (HCC) ([facility])- Primary Bipolar affective disorder, remission status unspecified ([facility]) Restless leg syndrome Restless legs syndrome (RLS) URIEL (obstructive sleep apnea) Obstructive sleep apnea (adult) (pediatric) Primary hypertension ([facility]) Unspecified essential hypertension Chronic diastolic heart failure ([facility]) Chronic diastolic heart failure Stage 3 chronic kidney disease due to type 2 diabetes mellitus (HCC) ([facility]) Seasonal allergies Allergic rhinitis, cause unspecified BMI 50.0-59.9, adult ([facility]) Type 2 diabetes mellitus with stage 4 chronic kidney disease, without long-term current use of insulin ([facility])- Primary Type 2 diabetes mellitus without complication, without long-term current use of insulin ([facility]) Left lower quadrant abdominal pain- Primary Morbid (severe) obesity due to excess calories ([facility]) Body mass index (BMI) 45.0-49.9, adult ([facility]) Restless leg syndrome Restless legs syndrome (RLS) Stage 3b chronic kidney disease (HCC) ([facility]) Type 2 diabetes mellitus with other circulatory complications ([facility])- Primary Type 2 diabetes mellitus with stage 4 chronic kidney disease, without long-term current use of insulin ([facility]) Type 2 diabetes mellitus with stage 3a chronic kidney disease, without long-term current use of insulin (HCC) ([facility]) Class 3 severe obesity due to excess calories with serious comorbidity and body mass index (BMI) of 45.0 to 49.9 in adult ([facility]) documented in this encounter [facility] HealthcareEvaluation note* Diagnosis Primary hypertension ([facility])- Primary Unspecified essential hypertension Gastroesophageal reflux disease, unspecified whether esophagitis present Microscopic hematuria Lower extremity edema Edema Type 2 diabetes mellitus without complication, without long-term current use of insulin ([facility]) Stage 3 chronic kidney disease due to type 2 diabetes mellitus (HCC) ([facility]) Mixed hyperlipidemia ([facility]) Mixed hyperlipidemia Migraine without aura and without status migrainosus, not intractable ([facility]) Encounter for screening mammogram for malignant neoplasm of breast Colon cancer screening Special screening for malignant neoplasms, colon BMI 50.0-59.9, adult ([facility]) Heel pain, bilateral Type 2 diabetes mellitus without complication, without long-term current use of insulin ([facility])- Primary History of anuria Stage 3 chronic kidney disease due to type 2 diabetes mellitus (HCC) ([facility]) BMI 50.0-59.9, adult ([facility]) URIEL (obstructive sleep apnea) Obstructive sleep apnea (adult) (pediatric) Primary hypertension ([facility]) Unspecified essential hypertension Chronic diastolic heart failure ([facility]) Chronic diastolic heart failure Depression, unspecified depression type ([facility]) Type 2 diabetes mellitus without complication, without long-term current use of insulin ([facility])- Primary Stage 3 chronic kidney disease due to type 2 diabetes mellitus (HCC) ([facility]) BMI 50.0-59.9, adult ([facility]) Lower extremity edema Edema Dental infection- Primary Type 2 diabetes mellitus with stage 3 chronic kidney disease, without long-term current use of insulin, unspecified whether stage 3a or 3b CKD ([facility]) ([facility])- Primary Bipolar affective disorder, remission status unspecified ([facility]) Restless leg syndrome Restless legs syndrome (RLS) URIEL (obstructive sleep apnea) Obstructive sleep apnea (adult) (pediatric) Primary hypertension ([facility]) Unspecified essential hypertension Chronic diastolic heart failure ([facility]) Chronic diastolic heart failure Stage 3 chronic kidney disease due to type 2 diabetes mellitus (HCC) ([facility]) Seasonal allergies Allergic rhinitis, cause unspecified BMI 50.0-59.9, adult ([facility]) Type 2 diabetes mellitus with stage 4 chronic kidney disease, without long-term current use of insulin ([facility])- Primary Type 2 diabetes mellitus without complication, without long-term current use of insulin ([facility]) Left lower quadrant abdominal pain- Primary Morbid (severe) obesity due to excess calories ([facility]) Body mass index (BMI) 45.0-49.9, adult ([facility]) Restless leg syndrome Restless legs syndrome (RLS) Stage 3b chronic kidney disease (HCC) ([facility]) Type 2 diabetes mellitus with other circulatory complications ([facility])- Primary Type 2 diabetes mellitus with stage 4 chronic kidney disease, without long-term current use of insulin ([facility]) Type 2 diabetes mellitus with stage 3a chronic kidney disease, without long-term current use of insulin (HCC) ([facility]) Class 3 severe obesity due to excess calories with serious comorbidity and body mass index (BMI) of 45.0 to 49.9 in adult ([facility]) Muscle spasm Spasm of muscle documented in this encounter [facility] HealthcareEvaluation note* Diagnosis Primary hypertension ([facility])- Primary Unspecified essential hypertension Gastroesophageal reflux disease, unspecified whether esophagitis present Microscopic hematuria Lower extremity edema Edema Type 2 diabetes mellitus without complication, without long-term current use of insulin ([facility]) Stage 3 chronic kidney disease due to type 2 diabetes mellitus (HCC) ([facility]) Mixed hyperlipidemia ([facility]) Mixed hyperlipidemia Migraine without aura and without status migrainosus, not intractable ([facility]) Encounter for screening mammogram for malignant neoplasm of breast Colon cancer screening Special screening for malignant neoplasms, colon BMI 50.0-59.9, adult ([facility]) Heel pain, bilateral Type 2 diabetes mellitus without complication, without long-term current use of insulin ([facility])- Primary History of anuria Stage 3 chronic kidney disease due to type 2 diabetes mellitus (HCC) ([facility]) BMI 50.0-59.9, adult ([facility]) URIEL (obstructive sleep apnea) Obstructive sleep apnea (adult) (pediatric) Primary hypertension ([facility]) Unspecified essential hypertension Chronic diastolic heart failure ([facility]) Chronic diastolic heart failure Depression, unspecified depression type ([facility]) Type 2 diabetes mellitus without complication, without long-term current use of insulin ([facility])- Primary Stage 3 chronic kidney disease due to type 2 diabetes mellitus (HCC) ([facility]) BMI 50.0-59.9, adult ([facility]) Lower extremity edema Edema Dental infection- Primary Type 2 diabetes mellitus with stage 3 chronic kidney disease, without long-term current use of insulin, unspecified whether stage 3a or 3b CKD (HCC) ([facility])- Primary Bipolar affective disorder, remission status unspecified ([facility]) Restless leg syndrome Restless legs syndrome (RLS) URIEL (obstructive sleep apnea) Obstructive sleep apnea (adult) (pediatric) Primary hypertension ([facility]) Unspecified essential hypertension Chronic diastolic heart failure ([facility]) Chronic diastolic heart failure Stage 3 chronic kidney disease due to type 2 diabetes mellitus (HCC) ([facility]) Seasonal allergies Allergic rhinitis, cause unspecified BMI 50.0-59.9, adult ([facility]) Type 2 diabetes mellitus with stage 4 chronic kidney disease, without long-term current use of insulin ([facility])- Primary Type 2 diabetes mellitus without complication, without long-term current use of insulin ([facility]) Left lower quadrant abdominal pain- Primary Morbid (severe) obesity due to excess calories ([facility]) Body mass index (BMI) 45.0-49.9, adult ([facility]) Restless leg syndrome Restless legs syndrome (RLS) Stage 3b chronic kidney disease (HCC) ([facility]) Type 2 diabetes mellitus with other circulatory complications ([facility])- Primary Type 2 diabetes mellitus with stage 4 chronic kidney disease, without long-term current use of insulin ([facility]) Type 2 diabetes mellitus with stage 3a chronic kidney disease, without long-term current use of insulin ([facility]) ([facility]) Class 3 severe obesity due to excess calories with serious comorbidity and body mass index (BMI) of 45.0 to 49.9 in adult ([facility]) Primary hypertension ([facility])- Primary Unspecified essential hypertension Spinal stenosis of lumbar region at multiple levels Restless leg syndrome Restless legs syndrome (RLS) URIEL (obstructive sleep apnea) Obstructive sleep apnea (adult) (pediatric) Coronary arteriosclerosis ([facility]) Coronary atherosclerosis of unspecified type of vessel, [place] or graft Stage 3b chronic kidney disease (HCC) ([facility]) Swelling of both lower extremities Lower extremity edema Edema Type 2 diabetes mellitus with stage 3a chronic kidney disease, without long-term current use of insulin (HCC) ([facility]) Class 3 severe obesity due to excess calories with serious comorbidity and body mass index (BMI) of 45.0 to 49.9 in adult ([facility]) Bipolar affective disorder, remission status unspecified ([facility]) Generalized anxiety disorder ([facility]) Generalized anxiety disorder Vitamin D deficiency Vitamin B12 deficiency Other B-complex deficiencies H/O bariatric surgery Acute non-recurrent pansinusitis documented in this encounter [facility]Evaluation [facility]* Diagnosis Primary hypertension ([facility])- Primary Unspecified essential hypertension Gastroesophageal reflux disease, unspecified whether esophagitis present Microscopic hematuria Lower extremity edema Edema Type 2 diabetes mellitus without complication, without long-term current use of insulin ([facility]) Stage 3 chronic kidney disease due to type 2 diabetes mellitus (HCC) ([facility]) Mixed hyperlipidemia ([facility]) Mixed hyperlipidemia Migraine without aura and without status migrainosus, not intractable ([facility]) Encounter for screening mammogram for malignant neoplasm of breast Colon cancer screening Special screening for malignant neoplasms, colon BMI 50.0-59.9, adult ([facility]) Heel pain, bilateral Type 2 diabetes mellitus without complication, without long-term current use of insulin ([facility])- Primary History of anuria Stage 3 chronic kidney disease due to type 2 diabetes mellitus (HCC) ([facility]) BMI 50.0-59.9, adult ([facility] [facility] URIEL (obstructive sleep apnea) Obstructive sleep apnea (adult) (pediatric) Primary hypertension ([facility]) Unspecified essential hypertension Chronic diastolic heart failure ([facility]) Chronic diastolic heart failure Depression, unspecified depression type ([facility]) Type 2 diabetes mellitus without complication, without long-term current use of insulin ([facility])- Primary Stage 3 chronic kidney disease due to type 2 diabetes mellitus (HCC) ([facility]) BMI 50.0-59.9, adult ([facility]) Lower extremity edema Edema Dental infection- Primary Type 2 diabetes mellitus with stage 3 chronic kidney disease, without long-term current use of insulin, unspecified whether stage 3a or 3b CKD (HCC) ([facility])- Primary Bipolar affective disorder, remission status unspecified ([facility]) Restless leg syndrome Restless legs syndrome (RLS) URIEL (obstructive sleep apnea) Obstructive sleep apnea (adult) (pediatric) Primary hypertension ([facility]) Unspecified essential hypertension Chronic diastolic heart failure ([facility]) Chronic diastolic heart failure Stage 3 chronic kidney disease due to type 2 diabetes mellitus (HCC) ([facility]) Seasonal allergies Allergic rhinitis, cause unspecified BMI 50.0-59.9, adult ([facility]) Type 2 diabetes mellitus with stage 4 chronic kidney disease, without long-term current use of insulin ([facility])- Primary Type 2 diabetes mellitus without complication, without long-term current use of insulin ([facility]) Left lower quadrant abdominal pain- Primary Morbid (severe) obesity due to excess calories ([facility]) Body mass index (BMI) 45.0-49.9, adult ([facility]) Restless leg syndrome Restless legs syndrome (RLS) Stage 3b chronic kidney disease (HCC) ([facility]) Type 2 diabetes mellitus with other circulatory complications ([facility])- Primary Type 2 diabetes mellitus with stage 4 chronic kidney disease, without long-term current use of insulin ([facility]) Type 2 diabetes mellitus with stage 3a chronic kidney disease, without long-term current use of insulin (HCC) ([facility]) Class 3 severe obesity due to excess calories with serious comorbidity and body mass index (BMI) of 45.0 to 49.9 in adult ([facility]) Primary hypertension ([facility])- Primary Unspecified essential hypertension Spinal stenosis of lumbar region at multiple levels Restless leg syndrome Restless legs syndrome (RLS) URIEL (obstructive sleep apnea) Obstructive sleep apnea (adult) (pediatric) Coronary arteriosclerosis ([facility]) Coronary atherosclerosis of unspecified type of vessel, [place] or graft Stage 3b chronic kidney disease (HCC) ([facility]) Swelling of both lower extremities Lower extremity edema Edema Type 2 diabetes mellitus with stage 3a chronic kidney disease, without long-term current use of insulin (HCC) ([facility]) Class 3 severe obesity due to excess calories with serious comorbidity and body mass index (BMI) of 45.0 to 49.9 in adult ([facility]) Bipolar affective disorder, remission status unspecified ([facility]) Generalized anxiety disorder ([facility]) Generalized anxiety disorder Vitamin D deficiency Vitamin B12 deficiency Other B-complex deficiencies H/O bariatric surgery Acute non-recurrent pansinusitis Restless leg syndrome Restless legs syndrome (RLS) documented in [facility] encounter [facility]* Diagnosis Left lower quadrant abdominal pain- Primary Morbid (severe) obesity due to excess calories ([facility]) Body mass index (BMI) 45.0-49.9, adult ([facility]) Restless leg syndrome Restless legs syndrome (RLS) Stage 3b chronic kidney disease (HCC) ([facility]) documented [facility]* [...] disease, without long-term current use of insulin ([facility])- Primary documented in this [facility]* Diagnosis Primary hypertension ([facility]) Unspecified essential hypertension documented in this [facility]* Diagnosis Primary hypertension ([facility])- Primary Unspecified essential hypertension Gastroesophageal reflux disease, unspecified whether esophagitis present Microscopic hematuria Lower extremity edema Edema Type 2 diabetes mellitus without complication, without long-term current use of insulin ([facility]) Stage 3 chronic kidney disease due to type 2 diabetes mellitus (HCC) ([facility]) Mixed hyperlipidemia ([facility]) Mixed hyperlipidemia Migraine without aura and without status migrainosus, not intractable ([facility]) Encounter for screening mammogram for malignant neoplasm of breast Colon cancer screening Special screening for malignant neoplasms, colon BMI 50.0-59.9, adult ([facility]) Heel pain, bilateral Type 2 diabetes mellitus without complication, without long-term current use of insulin ([facility])- Primary History of anuria Stage 3 chronic kidney disease due to type 2 diabetes mellitus (HCC) ([facility]) BMI 50.0-59.9, adult ([facility]) URIEL (obstructive sleep apnea) Obstructive sleep apnea (adult) (pediatric) Primary hypertension ([facility]) Unspecified essential hypertension Chronic diastolic heart failure ([facility]) Chronic diastolic heart failure Depression, unspecified depression type ([facility]) Type 2 diabetes mellitus without complication, without long-term current use of insulin ([facility])- Primary Stage 3 chronic kidney disease due to type 2 diabetes mellitus (HCC) ([facility]) BMI 50.0-59.9, adult ([facility]) Lower extremity edema Edema Dental infection- Primary Type 2 diabetes mellitus with stage 3 chronic kidney disease, without long-term current use of insulin, unspecified whether stage 3a or 3b CKD (HCC) ([facility])- Primary Bipolar affective disorder, remission status unspecified ([facility]) Restless leg syndrome Restless legs syndrome (RLS) URIEL (obstructive sleep apnea) Obstructive sleep apnea (adult) (pediatric) Primary hypertension ([facility]) Unspecified essential hypertension Chronic diastolic heart failure ([facility]) Chronic diastolic heart failure Stage 3 chronic kidney disease due to type 2 diabetes mellitus (HCC) ([facility]) Seasonal allergies Allergic rhinitis, cause unspecified BMI 50.0-59.9, adult ([facility]) Type 2 diabetes mellitus with stage 4 chronic kidney disease, without long-term current use of insulin ([facility])- Primary Type 2 diabetes mellitus without complication, without long-term current use of insulin ([facility]) Left lower quadrant abdominal pain- Primary Morbid (severe) obesity due to excess calories ([facility]) Body mass index (BMI) 45.0-49.9, adult ([facility]) Restless leg syndrome Restless legs syndrome (RLS) Stage 3b chronic kidney disease (HCC) ([facility]) Type 2 diabetes mellitus with other circulatory complications ([facility])- Primary Type 2 diabetes mellitus with stage 4 chronic kidney disease, without long-term current use of insulin ([facility]) Type 2 diabetes mellitus with stage 3a chronic kidney disease, without long-term current use of insulin (HCC) ([facility]) Class 3 severe obesity due to excess calories with serious comorbidity and body mass index (BMI) of 45.0 to 49.9 in adult ([facility]) Primary hypertension ([facility])- Primary Unspecified essential hypertension Spinal stenosis of lumbar region at multiple levels Restless leg syndrome Restless legs syndrome (RLS) URIEL (obstructive sleep apnea) Obstructive sleep apnea (adult) (pediatric) Coronary arteriosclerosis ([facility]) Coronary atherosclerosis of unspecified type of vessel, [place] or graft Stage 3b chronic kidney disease (HCC) ([facility]) Swelling of both lower extremities Lower extremity edema Edema Type 2 diabetes mellitus with stage 3a chronic kidney disease, without long-term current use of insulin (HCC) ([facility]) Class 3 severe obesity due to excess calories with serious comorbidity and body mass index (BMI) of 45.0 to 49.9 in adult ([facility]) Bipolar affective disorder, remission status unspecified ([facility]) Generalized anxiety disorder ([facility]) Generalized anxiety disorder Vitamin D deficiency Vitamin B12 deficiency Other B-complex deficiencies H/O bariatric surgery Acute non-recurrent pansinusitis Muscle spasm Spasm of muscle documented in this encounter [facility]* Diagnosis Primary hypertension ([facility])- Primary Unspecified essential hypertension Gastroesophageal reflux disease, unspecified whether esophagitis present Microscopic hematuria Lower extremity edema Edema Type 2 diabetes mellitus without complication, without long-term current use of insulin ([facility]) Stage 3 chronic kidney disease due to type 2 diabetes mellitus (HCC) ([facility]) Mixed hyperlipidemia ([facility]) Mixed hyperlipidemia Migraine without aura and without status migrainosus, not intractable ([facility]) Encounter for screening mammogram for malignant neoplasm of breast Colon cancer screening Special screening for malignant neoplasms, colon BMI 50.0-59.9, adult ([facility]) Heel pain, bilateral Type 2 diabetes mellitus without complication, without long-term current use of insulin ([facility])- Primary History of anuria Stage 3 chronic kidney disease due to type 2 diabetes mellitus (HCC) ([facility]) BMI 50.0-59.9, adult ([facility]) URIEL (obstructive sleep apnea) Obstructive sleep apnea (adult) (pediatric) Primary hypertension ([facility]) Unspecified essential hypertension Chronic diastolic heart failure ([facility]) Chronic diastolic heart failure Depression, unspecified depression type ([facility]) Type 2 diabetes mellitus without complication, without long-term current use of insulin ([facility])- Primary Stage 3 chronic kidney disease due to type 2 diabetes mellitus (HCC) ([facility]) BMI 50.0-59.9, adult ([facility]) Lower extremity edema Edema Dental infection- Primary Type 2 diabetes mellitus with stage 3 chronic kidney disease, without long-term current use of insulin, unspecified whether stage 3a or 3b CKD (HCC) ([facility])- Primary Bipolar affective disorder, remission status unspecified ([facility]) Restless leg syndrome Restless legs syndrome (RLS) URIEL (obstructive sleep apnea) Obstructive sleep apnea (adult) (pediatric) Primary hypertension ([facility]) Unspecified essential hypertension Chronic diastolic heart failure ([facility]) Chronic diastolic heart failure Stage 3 chronic kidney disease due to type 2 diabetes mellitus (HCC) ([facility]) Seasonal allergies Allergic rhinitis, cause unspecified BMI 50.0-59.9, adult ([facility]) Type 2 diabetes mellitus with stage 4 chronic kidney disease, without long-term current use of insulin ([facility])- Primary Type 2 diabetes mellitus without complication, without long-term current use of insulin ([facility]) Left lower quadrant abdominal pain- Primary Morbid (severe) obesity due to excess calories ([facility]) Body mass index (BMI) 45.0-49.9, adult ([facility]) Restless leg syndrome Restless legs syndrome (RLS) Stage 3b chronic kidney disease (HCC) ([facility] Type 2 diabetes mellitus with other circulatory complications ([facility])- Primary Type 2 diabetes mellitus with stage 4 chronic kidney disease, without long-term current use of insulin ([facility]) Type 2 diabetes mellitus with stage 3a chronic kidney disease, without long-term current use of insulin (HCC) ([facility]) Class 3 severe obesity due to excess calories with serious comorbidity and body mass index (BMI) of 45.0 to 49.9 in adult ([facility]) Primary hypertension ([facility])- Primary Unspecified essential hypertension Spinal stenosis of lumbar region at multiple levels Restless leg syndrome Restless legs syndrome (RLS) URIEL (obstructive sleep apnea) Obstructive sleep apnea (adult) (pediatric) Coronary arteriosclerosis ([facility]) Coronary atherosclerosis of unspecified type of vessel, [place] or graft Stage 3b chronic kidney disease (HCC) ([facility]) Swelling of both lower extremities Lower extremity edema Edema Type 2 diabetes mellitus with stage 3a chronic kidney disease, without long-term current use of insulin (HCC) ([facility]) Class 3 severe obesity due to excess calories with serious comorbidity and body mass index (BMI) of 45.0 to 49.9 in adult ([facility]) Bipolar affective disorder, remission status unspecified ([facility]) Generalized anxiety disorder ([facility]) Generalized anxiety disorder Vitamin D deficiency Vitamin B12 deficiency Other B-complex deficiencies H/O bariatric surgery Acute non-recurrent pansinusitis Class 2 severe obesity due to excess calories with serious comorbidity and body mass index (BMI) of 38.0 to 38.9 in adult ([facility])- Primary Type 2 diabetes mellitus with other circulatory complications ([facility]) Type 2 diabetes mellitus with stage 3a chronic kidney disease, without long-term current use of insulin ([facility]) ([facility]) documented in this encounter [facility]* Diagnosis Primary hypertension ([facility])- Primary Unspecified essential hypertension Gastroesophageal reflux disease, unspecified whether esophagitis present Microscopic hematuria Lower extremity edema Edema Type 2 diabetes mellitus without complication, without long-term current use of insulin Stage 3 chronic kidney disease due to type 2 diabetes mellitus (HCC) ([facility]) Mixed hyperlipidemia ([facility]) Mixed hyperlipidemia Migraine without aura and without status migrainosus, not intractable ([facility]) Encounter for screening mammogram for malignant neoplasm of breast Colon cancer screening Special screening for malignant neoplasms, colon BMI 50.0-59.9, adult ([facility]) Heel pain, bilateral Type 2 diabetes mellitus without complication, without long-term current use of insulin- Primary History of anuria Stage 3 chronic kidney disease due to type 2 diabetes mellitus (HCC) ([facility]) BMI 50.0-59.9, adult ([facility]) URIEL (obstructive sleep apnea) Obstructive sleep apnea (adult) (pediatric) Primary hypertension ([facility]) Unspecified essential hypertension Chronic diastolic heart failure ([facility]) Chronic diastolic heart failure Depression, unspecified depression type ([facility]) Type 2 diabetes mellitus without complication, without long-term current use of insulin- Primary Stage 3 chronic kidney disease due to type 2 diabetes mellitus ([facility]) ([facility]) BMI 50.0-59.9, adult ([facility]) Lower extremity edema Edema Dental infection- Primary Type 2 diabetes mellitus with stage 3 chronic kidney disease, without long-term current use of insulin, unspecified whether stage 3a or 3b CKD ([facility]) ([facility])- Primary Bipolar affective disorder, remission status unspecified ([facility]) Restless leg syndrome Restless legs syndrome (RLS) URIEL (obstructive sleep apnea) Obstructive sleep apnea (adult) (pediatric) Primary hypertension ([facility]) Unspecified essential hypertension Chronic diastolic heart failure ([facility]) Chronic diastolic heart failure Stage 3 chronic kidney disease due to type 2 diabetes mellitus ([facility]) ([facility]) Seasonal allergies Allergic rhinitis, cause unspecified BMI 50.0-59.9, adult ([facility]) Type 2 diabetes mellitus with stage 4 chronic kidney disease, without long-term current use of insulin ([facility])- Primary Type 2 diabetes mellitus without complication, without long-term current use of insulin Left lower quadrant abdominal pain- Primary Morbid (severe) obesity due to excess calories ([facility]) Body mass index (BMI) 45.0-49.9, adult ([facility]) Restless leg syndrome Restless legs syndrome (RLS) Stage 3b chronic kidney disease (HCC) ([facility]) Type 2 diabetes mellitus with other circulatory complications- Primary Type 2 diabetes mellitus with stage 4 chronic kidney disease, without long-term current use of insulin ([facility]) Type 2 diabetes mellitus with stage 3a chronic kidney disease, without long-term current use of insulin ([facility]) ([facility]) Class 3 severe obesity due to excess calories with serious comorbidity and body mass index (BMI) of 45.0 to 49.9 in adult Primary hypertension ([facility])- Primary Unspecified essential hypertension Spinal stenosis of lumbar region at multiple levels Restless leg syndrome Restless legs syndrome (RLS) URIEL (obstructive sleep apnea) Obstructive sleep apnea (adult) (pediatric) Coronary arteriosclerosis ([facility]) Coronary atherosclerosis of unspecified type of vessel, [place] or graft Stage 3b chronic kidney disease (HCC) ([facility]) Swelling of both lower extremities Lower extremity edema Edema Type 2 diabetes mellitus with stage 3a chronic kidney disease, without long-term current use of insulin (HCC) ([facility]) Class 3 severe obesity due to excess calories with serious comorbidity and body mass index (BMI) of 45.0 to 49.9 in adult Bipolar affective disorder, remission status unspecified ([facility]) Generalized anxiety disorder ([facility]) Generalized anxiety disorder Vitamin D deficiency Vitamin B12 deficiency Other B-complex deficiencies H/O bariatric surgery Acute non-recurrent pansinusitis Class 2 severe obesity due to excess calories with serious comorbidity and body mass index (BMI) of 38.0 to 38.9 in adult ([facility])- Primary Type 2 diabetes mellitus with other circulatory complications Type 2 diabetes mellitus with stage 3a chronic kidney disease, without long-term current use of insulin (HCC) ([facility]) Acute foot pain, left- Primary Acute left ankle pain documented in this encounter [facility]* Diagnosis Primary hypertension ([facility])- Primary Unspecified essential hypertension Gastroesophageal reflux disease, unspecified whether esophagitis present Microscopic hematuria Lower extremity edema Edema Type 2 diabetes mellitus without complication, without long-term current use of insulin Stage 3 chronic kidney disease due to type 2 diabetes mellitus (HCC) ([facility]) Mixed hyperlipidemia ([facility]) Mixed hyperlipidemia Migraine without aura and without status migrainosus, not intractable ([facility]) Encounter for screening mammogram for malignant neoplasm of breast Colon cancer screening Special screening for malignant neoplasms, colon BMI 50.0-59.9, adult ([facility]) Heel pain, bilateral Type 2 diabetes mellitus without complication, without long-term current use of insulin- Primary History of anuria Stage 3 chronic kidney disease due to type 2 diabetes mellitus (HCC) ([facility]) BMI 50.0-59.9, adult ([facility]) URIEL (obstructive sleep apnea) Obstructive sleep apnea (adult) (pediatric) Primary hypertension ([facility]) Unspecified essential hypertension Chronic diastolic heart failure ([facility]) Chronic diastolic heart failure Depression, unspecified depression type ([facility]) Type 2 diabetes mellitus without complication, without long-term current use of insulin- Primary Stage 3 chronic kidney disease due to type 2 diabetes mellitus (HCC) ([facility]) BMI 50.0-59.9, adult ([facility]) Lower extremity edema Edema Dental infection- Primary Type 2 diabetes mellitus with stage 3 chronic kidney disease, without long-term current use of insulin, unspecified whether stage 3a or 3b CKD ([facility]) ([facility] [facility] [place] Primary Bipolar affective disorder, remission status unspecified ([facility] [place]) Restless leg syndrome Restless legs syndrome (RLS) URIEL (obstructive sleep apnea) Obstructive sleep apnea (adult) (pediatric) Primary hypertension ([facility]) Unspecified essential hypertension Chronic diastolic heart failure ([facility]) Chronic diastolic heart failure Stage 3 chronic kidney disease due to type 2 diabetes mellitus ([facility]) ([facility] [place]) Seasonal allergies Allergic rhinitis, cause unspecified BMI 50.0-59.9, adult ([facility] [place]) Type 2 diabetes mellitus with stage 4 chronic kidney disease, without long-term current use of insulin ([facility] [place])- Primary Type 2 diabetes mellitus without complication, without long-term current use of insulin Left lower quadrant abdominal pain- Primary Morbid (severe) obesity due to excess calories ([facility] [place]) Body mass index (BMI) 45.0-49.9, adult ([facility] [place]) Restless leg syndrome Restless legs syndrome (RLS) Stage 3b chronic kidney disease (HCC) ([facility] [place]) Type 2 diabetes mellitus with other circulatory complications- Primary Type 2 diabetes mellitus with stage 4 chronic kidney disease, without long-term current use of insulin ([facility] [place]) Type 2 diabetes mellitus with stage 3a chronic kidney disease, without long-term current use of insulin ([facility]) ([facility] [place]) Class 3 severe obesity due to excess calories with serious comorbidity and body mass index (BMI) of 45.0 to 49.9 in adult Primary hypertension ([facility])- Primary Unspecified essential hypertension Spinal stenosis of lumbar region at multiple levels Restless leg syndrome Restless legs syndrome (RLS) URIEL (obstructive sleep apnea) Obstructive sleep apnea (adult) (pediatric) Coronary arteriosclerosis ([facility]) Coronary atherosclerosis of unspecified type of vessel, [place] or graft Stage 3b chronic kidney disease (HCC) ([facility] [place]) Swelling of both lower extremities Lower extremity edema Edema Type 2 diabetes mellitus with stage 3a chronic kidney disease, without long-term current use of insulin (HCC) ([facility] [place]) Class 3 severe obesity due to excess calories with serious comorbidity and body mass index (BMI) of 45.0 to 49.9 in adult Bipolar affective disorder, remission status unspecified ([facility]) Generalized anxiety disorder ([facility]) Generalized anxiety disorder Vitamin D deficiency Vitamin B12 deficiency Other B-complex deficiencies H/O bariatric surgery Acute non-recurrent pansinusitis Class 2 severe obesity due to excess calories with serious comorbidity and body mass index (BMI) of 38.0 to 38.9 in adult ([facility])- Primary Type 2 diabetes mellitus with other circulatory complications Type 2 diabetes mellitus with stage 3a chronic kidney disease, without long-term current use of insulin (HCC) ([facility]) Restless leg syndrome Restless legs syndrome (RLS) documented in this encounter [facility] HealthcareEvaluation note* Diagnosis Primary hypertension ([facility])- Primary Unspecified essential hypertension Gastroesophageal reflux disease, unspecified whether esophagitis present Microscopic hematuria Lower extremity edema Edema Type 2 diabetes mellitus without complication, without long-term current use of insulin Stage 3 chronic kidney disease due to type 2 diabetes mellitus (HCC) ([facility]) Mixed hyperlipidemia ([facility]) Mixed hyperlipidemia Migraine without aura and without status migrainosus, not intractable ([facility]) Encounter for screening mammogram for malignant neoplasm of breast Colon cancer screening Special screening for malignant neoplasms, colon BMI 50.0-59.9, adult ([facility]) Heel pain, bilateral Type 2 diabetes mellitus without complication, without long-term current use of insulin- Primary History of anuria Stage 3 chronic kidney disease due to type 2 diabetes mellitus ([facility]) ([facility]) BMI 50.0-59.9, adult ([facility]) URIEL (obstructive sleep apnea) Obstructive sleep apnea (adult) (pediatric) Primary hypertension ([facility]) Unspecified essential hypertension Chronic diastolic heart failure ([facility]) Chronic diastolic heart failure Depression, unspecified depression type ([facility]) Type 2 diabetes mellitus without complication, without long-term current use of insulin- Primary Stage 3 chronic kidney disease due to type 2 diabetes mellitus (HCC) ([facility]) BMI 50.0-59.9, adult ([facility]) Lower extremity edema Edema Dental infection- Primary Type 2 diabetes mellitus with stage 3 chronic kidney disease, without long-term current use of insulin, unspecified whether stage 3a or 3b CKD (HCC) ([facility])- Primary Bipolar affective disorder, remission status unspecified ([facility]) Restless leg syndrome Restless legs syndrome (RLS) URIEL (obstructive sleep apnea) Obstructive sleep apnea (adult) (pediatric) Primary hypertension ([facility]) Unspecified essential hypertension Chronic diastolic heart failure ([facility]) Chronic diastolic heart failure Stage 3 chronic kidney disease due to type 2 diabetes mellitus ([facility]) ([facility]) Seasonal allergies Allergic rhinitis, cause unspecified BMI 50.0-59.9, adult ([facility]) Type 2 diabetes mellitus with stage 4 chronic kidney disease, without long-term current use of insulin ([facility])- Primary Type 2 diabetes mellitus without complication, without long-term current use of insulin Left lower quadrant abdominal pain- Primary Morbid (severe) obesity due to excess calories ([facility]) Body mass index (BMI) 45.0-49.9, adult ([facility] [place]) Restless leg syndrome Restless legs syndrome (RLS) Stage 3b chronic kidney disease (HCC) ([facility] [place]) Type 2 diabetes mellitus with other circulatory complications- Primary Type 2 diabetes mellitus with stage 4 chronic kidney disease, without long-term current use of insulin ([facility]) Type 2 diabetes mellitus with stage 3a chronic kidney disease, without long-term current use of insulin ([facility]) ([facility] [place]) Class 3 severe obesity due to excess calories with serious comorbidity and body mass index (BMI) of 45.0 to 49.9 in adult Primary hypertension ([facility])- Primary Unspecified essential hypertension Spinal stenosis of lumbar region at multiple levels Restless leg syndrome Restless legs syndrome (RLS) URIEL (obstructive sleep apnea) Obstructive sleep apnea (adult) (pediatric) Coronary arteriosclerosis ([facility]) Coronary atherosclerosis of unspecified type of vessel, [place] or graft Stage 3b chronic kidney disease (HCC) ([facility]) Swelling of both lower extremities Lower extremity edema Edema Type 2 diabetes mellitus with stage 3a chronic kidney disease, without long-term current use of insulin ([facility]) ([facility]) Class 3 severe obesity due to excess calories with serious comorbidity and body mass index (BMI) of 45.0 to 49.9 in adult Bipolar affective disorder, remission status unspecified ([facility] [place]) Generalized anxiety disorder ([facility]) Generalized anxiety disorder Vitamin D deficiency Vitamin B12 deficiency Other B-complex deficiencies H/O bariatric surgery Acute non-recurrent pansinusitis Class 2 severe obesity due to excess calories with serious comorbidity and body mass index (BMI) of 38.0 to 38.9 in adult ([facility] [place] Primary Type 2 diabetes mellitus with other circulatory complications Type 2 diabetes mellitus with stage 3a chronic kidney disease, without long-term current use of insulin (HCC) ([facility]) Primary hypertension ([facility]) Unspecified essential hypertension documented in this encounter [facility] HealthcareEvaluation note* Diagnosis Primary hypertension ([facility])- Primary Unspecified essential hypertension Gastroesophageal reflux disease, unspecified whether esophagitis present Microscopic hematuria Lower extremity edema Edema Type 2 diabetes mellitus without complication, without long-term current use of insulin Stage 3 chronic kidney disease due to type 2 diabetes mellitus (HCC) ([facility]) Mixed hyperlipidemia ([facility]) Mixed hyperlipidemia Migraine without aura and without status migrainosus, not intractable ([facility]) Encounter for screening mammogram for malignant neoplasm of breast Colon cancer screening Special screening for malignant neoplasms, colon BMI 50.0-59.9, adult ([facility]) Heel pain, bilateral Type 2 diabetes mellitus without complication, without long-term current use of insulin- Primary History of anuria Stage 3 chronic kidney disease due to type 2 diabetes mellitus (HCC) ([facility]) BMI 50.0-59.9, adult ([facility]) URIEL (obstructive sleep apnea) Obstructive sleep apnea (adult) (pediatric) Primary hypertension ([facility]) Unspecified essential hypertension Chronic diastolic heart failure ([facility]) Chronic diastolic heart failure Depression, unspecified depression type ([facility]) Type 2 diabetes mellitus without complication, without long-term current use of insulin- Primary Stage 3 chronic kidney disease due to type 2 diabetes mellitus (HCC) ([facility]) BMI 50.0-59.9, adult ([facility]) Lower extremity edema Edema Dental infection- Primary Type 2 diabetes mellitus with stage 3 chronic kidney disease, without long-term current use of insulin, unspecified whether stage 3a or 3b CKD ([facility]) ([facility])- Primary Bipolar affective disorder, remission status unspecified ([facility]) Restless leg syndrome Restless legs syndrome (RLS) URIEL (obstructive sleep apnea) Obstructive sleep apnea (adult) (pediatric) Primary hypertension ([facility]) Unspecified essential hypertension Chronic diastolic heart failure ([facility]) Chronic diastolic heart failure Stage 3 chronic kidney disease due to type 2 diabetes mellitus (HCC) ([facility]) Seasonal allergies Allergic rhinitis, cause unspecified BMI 50.0-59.9, adult ([facility]) Type 2 diabetes mellitus with stage 4 chronic kidney disease, without long-term current use of insulin ([facility])- Primary Type 2 diabetes mellitus without complication, without long-term current use of insulin Left lower quadrant abdominal pain- Primary Morbid (severe) obesity due to excess calories ([facility]) Body mass index (BMI) 45.0-49.9, adult ([facility]) Restless leg syndrome Restless legs syndrome (RLS) Stage 3b chronic kidney disease (HCC) ([facility]) Type 2 diabetes mellitus with other circulatory complications- Primary Type 2 diabetes mellitus with stage 4 chronic kidney disease, without long-term current use of insulin ([facility]) Type 2 diabetes mellitus with stage 3a chronic kidney disease, without long-term current use of insulin (HCC) ([facility]) Class 3 severe obesity due to excess calories with serious comorbidity and body mass index (BMI) of 45.0 to 49.9 in adult Primary hypertension ([facility])- Primary Unspecified essential hypertension Spinal stenosis of lumbar region at multiple levels Restless leg syndrome Restless legs syndrome (RLS) URIEL (obstructive sleep apnea) Obstructive sleep apnea (adult) (pediatric) Coronary arteriosclerosis ([facility]) Coronary atherosclerosis of unspecified type of vessel, [place] or graft Stage 3b chronic kidney disease (HCC) ([facility]) Swelling of both lower extremities Lower extremity edema Edema Type 2 diabetes mellitus with stage 3a chronic kidney disease, without long-term current use of insulin ([facility]) ([facility]) Class 3 severe obesity due to excess calories with serious comorbidity and body mass index (BMI) of 45.0 to 49.9 in adult Bipolar affective disorder, remission status unspecified ([facility]) Generalized anxiety disorder ([facility]) Generalized anxiety disorder Vitamin D deficiency Vitamin B12 deficiency Other B-complex deficiencies H/O bariatric surgery Acute non-recurrent pansinusitis Class 2 severe obesity due to excess calories with serious comorbidity and body mass index (BMI) of 38.0 to 38.9 in adult ([facility])- Primary Type 2 diabetes mellitus with other circulatory complications Type 2 diabetes mellitus with stage 3a chronic kidney disease, without long-term current use of insulin (HCC) ([facility]) Muscle spasm Spasm of muscle documented in this encounter [facility] HealthcareEvaluation note* Diagnosis Primary hypertension ([facility])- Primary Unspecified essential hypertension Gastroesophageal reflux disease, unspecified whether esophagitis present Microscopic hematuria Lower extremity edema Edema Type 2 diabetes mellitus without complication, without long-term current use of insulin Stage 3 chronic kidney disease due to type 2 diabetes mellitus (HCC) ([facility] [place]) Mixed hyperlipidemia ([facility] [place]) Mixed hyperlipidemia Migraine without aura and without status migrainosus, not intractable ([facility] [place]) Encounter for screening mammogram for malignant neoplasm of breast Colon cancer screening Special screening for malignant neoplasms, colon BMI 50.0-59.9, adult ([facility] [place]) Heel pain, bilateral Type 2 diabetes mellitus without complication, without long-term current use of insulin- Primary History of anuria Stage 3 chronic kidney disease due to type 2 diabetes mellitus (HCC) ([facility] [place]) BMI 50.0-59.9, adult ([facility] [place]) URIEL (obstructive sleep apnea) Obstructive sleep apnea (adult) (pediatric) Primary hypertension ([facility] [place]) Unspecified essential hypertension Chronic diastolic heart failure ([facility] [place]) Chronic diastolic heart failure Depression, unspecified depression type ([facility] [place]) Type 2 diabetes mellitus without complication, without long-term current use of insulin- Primary Stage 3 chronic kidney disease due to type 2 diabetes mellitus (HCC) ([facility] [place]) BMI 50.0-59.9, adult ([facility] [place]) Lower extremity edema Edema Type 2 diabetes mellitus with stage 3 chronic kidney disease, without long-term current use of insulin, unspecified whether stage 3a or 3b CKD (HCC) ([facility] [place] Primary Bipolar affective disorder, remission status unspecified ([facility] [place]) Restless leg syndrome Restless legs syndrome (RLS) URIEL (obstructive sleep apnea) Obstructive sleep apnea (adult) (pediatric) Primary hypertension ([facility]) Unspecified essential hypertension Chronic diastolic heart failure ([facility] [place]) Chronic diastolic heart failure Stage 3 chronic kidney disease due to type 2 diabetes mellitus (HCC) ([facility] [place]) Seasonal allergies Allergic rhinitis, cause unspecified BMI 50.0-59.9, adult ([facility] [place]) Type 2 diabetes mellitus with stage 4 chronic kidney disease, without long-term current use of insulin ([facility] [place])- Primary Type 2 diabetes mellitus without complication, without long-term current use of insulin Left lower quadrant abdominal pain- Primary Morbid (severe) obesity due to excess calories ([facility] [place]) Body mass index (BMI) 45.0-49.9, adult ([facility] [place]) Restless leg syndrome Restless legs syndrome (RLS) Stage 3b chronic kidney disease ([facility]) ([facility]) Type 2 diabetes mellitus with other circulatory complications- Primary Type 2 diabetes mellitus with stage 4 chronic kidney disease, without long-term current use of insulin ([facility]) Type 2 diabetes mellitus with stage 3a chronic kidney disease, without long-term current use of insulin (HCC) ([facility]) Class 3 severe obesity due to excess calories with serious comorbidity and body mass index (BMI) of 45.0 to 49.9 in adult Primary hypertension ([facility])- Primary Unspecified essential hypertension Spinal stenosis of lumbar region at multiple levels Restless leg syndrome Restless legs syndrome (RLS) URIEL (obstructive sleep apnea) Obstructive sleep apnea (adult) (pediatric) Coronary arteriosclerosis ([facility]) Coronary atherosclerosis of unspecified type of vessel, [place] or graft Stage 3b chronic kidney disease (HCC) ([facility]) Swelling of both lower extremities Lower extremity edema Edema Type 2 diabetes mellitus with stage 3a chronic kidney disease, without long-term current use of insulin (HCC) ([facility]) Class 3 severe obesity due to excess calories with serious comorbidity and body mass index (BMI) of 45.0 to 49.9 in adult Bipolar affective disorder, remission status unspecified ([facility]) Generalized anxiety disorder ([facility]) Generalized anxiety disorder Vitamin D deficiency Vitamin B12 deficiency Other B-complex deficiencies H/O bariatric surgery Acute non-recurrent pansinusitis Class 2 severe obesity due to excess calories with serious comorbidity and body mass index (BMI) of 38.0 to 38.9 in adult ([facility])- Primary Type 2 diabetes mellitus with other circulatory complications Type 2 diabetes mellitus with stage 3a chronic kidney disease, without long-term current use of insulin (HCC) ([facility]) Encounter for wellness examination in adult- Primary Encounter for screening mammogram for malignant neoplasm of breast Primary hypertension ([facility]) Unspecified essential hypertension Chronic diastolic heart failure ([facility]) Chronic diastolic heart failure Stage 3b chronic kidney disease (HCC) ([facility]) Class 2 severe obesity due to excess calories with serious comorbidity and body mass index (BMI) of 38.0 to 38.9 in adult ([facility]) Type 2 diabetes mellitus with stage 3a chronic kidney disease, without long-term current use of insulin (HCC) ([facility]) Mixed hyperlipidemia ([facility]) Mixed hyperlipidemia documented in this encounter [facility] HealthcareEvaluation note* Diagnosis Primary hypertension ([facility])- Primary Unspecified essential hypertension Gastroesophageal reflux disease, unspecified whether esophagitis present Microscopic hematuria Lower extremity edema Edema Type 2 diabetes mellitus without complication, without long-term current use of insulin Stage 3 chronic kidney disease due to type 2 diabetes mellitus (HCC) ([facility]) Mixed hyperlipidemia ([facility]) Mixed hyperlipidemia Migraine without aura and without status migrainosus, not intractable ([facility]) Encounter for screening mammogram for malignant neoplasm of breast Colon cancer screening Special screening for malignant neoplasms, colon BMI 50.0-59.9, adult ([facility]) Heel pain, bilateral Type 2 diabetes mellitus without complication, without long-term current use of insulin- Primary History of anuria Stage 3 chronic kidney disease due to type 2 diabetes mellitus (HCC) ([facility]) BMI 50.0-59.9, adult ([facility]) URIEL (obstructive sleep apnea) Obstructive sleep apnea (adult) (pediatric) Primary hypertension ([facility]) Unspecified essential hypertension Chronic diastolic heart failure ([facility]) Chronic diastolic heart failure Depression, unspecified depression type ([facility] [place]) Type 2 diabetes mellitus without complication, without long-term current use of insulin- Primary Stage 3 chronic kidney disease due to type 2 diabetes mellitus (HCC) ([facility]) BMI 50.0-59.9, adult ([facility]) Lower extremity edema Edema Type 2 diabetes mellitus with stage 3 chronic kidney disease, without long-term current use of insulin, unspecified whether stage 3a or 3b CKD (HCC) ([facility])- Primary Bipolar affective disorder, remission status unspecified ([facility]) Restless leg syndrome Restless legs syndrome (RLS) URIEL (obstructive sleep apnea) Obstructive sleep apnea (adult) (pediatric) Primary hypertension ([facility] Unspecified essential hypertension Chronic diastolic heart failure ([facility]) Chronic diastolic heart failure Stage 3 chronic kidney disease due to type 2 diabetes mellitus (HCC) ([facility]) Seasonal allergies Allergic rhinitis, cause unspecified BMI 50.0-59.9, adult ([facility]) Type 2 diabetes mellitus with stage 4 chronic kidney disease, without long-term current use of insulin ([facility] [place])- Primary Type 2 diabetes mellitus without complication, without long-term current use of insulin Left lower quadrant abdominal pain- Primary Morbid (severe) obesity due to excess calories ([facility]) Body mass index (BMI) 45.0-49.9, adult ([facility]) Restless leg syndrome Restless legs syndrome (RLS) Stage 3b chronic kidney disease (HCC) ([facility]) Type 2 diabetes mellitus with other circulatory complications- Primary Type 2 diabetes mellitus with stage 4 chronic kidney disease, without long-term current use of insulin ([facility]) Type 2 diabetes mellitus with stage 3a chronic kidney disease, without long-term current use of insulin (HCC) ([facility]) Class 3 severe obesity due to excess calories with serious comorbidity and body mass index (BMI) of 45.0 to 49.9 in adult Primary hypertension ([facility])- Primary Unspecified essential hypertension Spinal stenosis of lumbar region at multiple levels Restless leg syndrome Restless legs syndrome (RLS) URIEL (obstructive sleep apnea) Obstructive sleep apnea (adult) (pediatric) Coronary arteriosclerosis ([facility]) Coronary atherosclerosis of unspecified type of vessel, [place] or graft Stage 3b chronic kidney disease (HCC) ([facility]) Swelling of both lower extremities Lower extremity edema Edema Type 2 diabetes mellitus with stage 3a chronic kidney disease, without long-term current use of insulin (HCC) ([facility]) Class 3 severe obesity due to excess calories with serious comorbidity and body mass index (BMI) of 45.0 to 49.9 in adult Bipolar affective disorder, remission status unspecified ([facility]) Generalized anxiety disorder ([facility]) Generalized anxiety disorder Vitamin D deficiency Vitamin B12 deficiency Other B-complex deficiencies H/O bariatric surgery Acute non-recurrent pansinusitis Class 2 severe obesity due to excess calories with serious comorbidity and body mass index (BMI) of 38.0 to 38.9 in adult ([facility])- Primary Type 2 diabetes mellitus with other circulatory complications Type 2 diabetes mellitus with stage 3a chronic kidney disease, without long-term current use of insulin (HCC) ([facility]) Encounter for wellness examination in adult- Primary Encounter for screening mammogram for malignant neoplasm of breast Primary hypertension ([facility]) Unspecified essential hypertension Chronic diastolic heart failure ([facility]) Chronic diastolic heart failure Stage 3b chronic kidney disease (HCC) ([facility]) Class 2 severe obesity due to excess calories with serious comorbidity and body mass index (BMI) of 38.0 to 38.9 in adult ([facility]) Type 2 diabetes mellitus with stage 3a chronic kidney disease, without long-term current use of insulin (HCC) ([facility]) Mixed hyperlipidemia ([facility]) Mixed hyperlipidemia Restless leg syndrome Restless legs syndrome (RLS) documented in this encounter [facility] HealthcareEvaluation note* Diagnosis Primary hypertension- Primary Unspecified essential hypertension Gastroesophageal reflux disease, unspecified whether esophagitis present Microscopic hematuria Lower extremity edema Edema Type 2 diabetes mellitus without complication, without long-term current use of insulin ([facility]) Stage 3 chronic kidney disease due to type 2 diabetes mellitus ([facility]) Mixed hyperlipidemia Mixed hyperlipidemia Migraine without aura and without status migrainosus, not intractable Encounter for screening mammogram for malignant neoplasm of breast Colon cancer screening Special screening for malignant neoplasms, colon BMI 50.0-59.9, adult ([facility]) Heel pain, bilateral Type 2 diabetes mellitus without complication, without long-term current use of insulin ([facility])- Primary History of anuria Stage 3 chronic kidney disease due to type 2 diabetes mellitus ([facility]) BMI 50.0-59.9, adult ([facility]) URIEL (obstructive sleep apnea) Obstructive sleep apnea (adult) (pediatric) Primary hypertension Unspecified essential hypertension Chronic diastolic heart failure ([facility]) Chronic diastolic heart failure Depression, unspecified depression type Type 2 diabetes mellitus without complication, without long-term current use of insulin ([facility])- Primary Stage 3 chronic kidney disease due to type 2 diabetes mellitus ([facility]) BMI 50.0-59.9, adult ([facility]) Lower extremity edema Edema Type 2 diabetes mellitus with stage 3 chronic kidney disease, without long-term current use of insulin, unspecified whether stage 3a or 3b CKD ([facility])- Primary Bipolar affective disorder, remission status unspecified ([facility]) Restless leg syndrome Restless legs syndrome (RLS) URIEL (obstructive sleep apnea) Obstructive sleep apnea (adult) (pediatric) Primary hypertension Unspecified essential hypertension Chronic diastolic heart failure (HCC) Chronic diastolic heart failure Stage 3 chronic kidney disease due to type 2 diabetes mellitus ([facility]) Seasonal allergies Allergic rhinitis, cause unspecified BMI 50.0-59.9, adult ([facility]) Type 2 diabetes mellitus with stage 4 chronic kidney disease, without long-term current use of insulin ([facility])- Primary Type 2 diabetes mellitus without complication, without long-term current use of insulin ([facility]) Left lower quadrant abdominal pain- Primary Morbid (severe) obesity due to excess calories ([facility]) Body mass index (BMI) 45.0-49.9, adult ([facility]) Restless leg syndrome Restless legs syndrome (RLS) Stage 3b chronic kidney disease ([facility]) Type 2 diabetes mellitus with other circulatory complications ([facility])- Primary Type 2 diabetes mellitus with stage 4 chronic kidney disease, without long-term current use of insulin ([facility]) Type 2 diabetes mellitus with stage 3a chronic kidney disease, without long-term current use of insulin ([facility]) Class 3 severe obesity due to excess calories with serious comorbidity and body mass index (BMI) of 45.0 to 49.9 in adult ([facility]) Primary hypertension- Primary Unspecified essential hypertension Spinal stenosis of lumbar region at multiple levels Restless leg syndrome Restless legs syndrome (RLS) URIEL (obstructive sleep apnea) Obstructive sleep apnea (adult) (pediatric) Coronary arteriosclerosis Coronary atherosclerosis of unspecified type of vessel, [place] or graft Stage 3b chronic kidney disease ([facility]) Swelling of both lower extremities Lower extremity edema Edema Type 2 diabetes mellitus with stage 3a chronic kidney disease, without long-term current use of insulin ([facility]) Class 3 severe obesity due to excess calories with serious comorbidity and body mass index (BMI) of 45.0 to 49.9 in adult ([facility]) Bipolar affective disorder, remission status unspecified ([facility]) Generalized anxiety disorder Generalized anxiety disorder Vitamin D deficiency Vitamin B12 deficiency Other B-complex deficiencies H/O bariatric surgery Acute non-recurrent pansinusitis Class 2 severe obesity due to excess calories with serious comorbidity and body mass index (BMI) of 38.0 to 38.9 in adult ([facility])- Primary Type 2 diabetes mellitus with other circulatory complications ([facility]) Type 2 diabetes mellitus with stage 3a chronic kidney disease, without long-term current use of insulin ([facility]) Encounter for wellness examination in adult- Primary Encounter for screening mammogram for malignant neoplasm of breast Primary hypertension Unspecified essential hypertension Chronic diastolic heart failure ([facility]) Chronic diastolic heart failure Stage 3b chronic kidney disease ([facility]) Class 2 severe obesity due to excess calories with serious comorbidity and body mass index (BMI) of 38.0 to 38.9 in adult ([facility]) Type 2 diabetes mellitus with stage 3a chronic kidney disease, without long-term current use of insulin ([facility]) Mixed hyperlipidemia Mixed hyperlipidemia Type 2 diabetes mellitus with other circulatory complications ([facility])- Primary Type 2 diabetes mellitus with stage 3a chronic kidney disease, without long-term current use of insulin ([facility]) Type 2 diabetes mellitus with stage 4 chronic kidney disease, without long-term current use of insulin ([facility]) Type 2 diabetes mellitus without complication, without long-term current use of insulin ([facility]) Class 2 severe obesity due to excess calories with serious comorbidity and body mass index (BMI) of 36.0 to 36.9 in adult ([facility]) documented in this encounter [facility] HealthcareEvaluation note* Diagnosis Primary hypertension- Primary Unspecified essential hypertension Gastroesophageal reflux disease, unspecified whether esophagitis present Microscopic hematuria Lower extremity edema Edema Type 2 diabetes mellitus without complication, without long-term current use of insulin ([facility]) Stage 3 chronic kidney disease due to type 2 diabetes mellitus ([facility]) Mixed hyperlipidemia Mixed hyperlipidemia Migraine without aura and without status migrainosus, not intractable Encounter for screening mammogram for malignant neoplasm of breast Colon cancer screening Special screening for malignant neoplasms, colon BMI 50.0-59.9, adult ([facility]) Heel pain, bilateral Type 2 diabetes mellitus without complication, without long-term current use of insulin ([facility])- Primary History of anuria Stage 3 chronic kidney disease due to type 2 diabetes mellitus ([facility]) BMI 50.0-59.9, adult ([facility]) URIEL (obstructive sleep apnea) Obstructive sleep apnea (adult) (pediatric) Primary hypertension Unspecified essential hypertension Chronic diastolic heart failure ([facility]) Chronic diastolic heart failure Depression, unspecified depression type Type 2 diabetes mellitus without complication, without long-term current use of insulin ([facility])- Primary Stage 3 chronic kidney disease due to type 2 diabetes mellitus ([facility]) BMI 50.0-59.9, adult ([facility]) Lower extremity edema Edema Type 2 diabetes mellitus with stage 3 chronic kidney disease, without long-term current use of insulin, unspecified whether stage 3a or 3b CKD ([facility])- Primary Bipolar affective disorder, remission status unspecified ([facility]) Restless leg syndrome Restless legs syndrome (RLS) URIEL (obstructive sleep apnea) Obstructive sleep apnea (adult) (pediatric) Primary hypertension Unspecified essential hypertension Chronic diastolic heart failure (HCC) Chronic diastolic heart failure Stage 3 chronic kidney disease due to type 2 diabetes mellitus ([facility]) Seasonal allergies Allergic rhinitis, cause unspecified BMI 50.0-59.9, adult ([facility]) Type 2 diabetes mellitus with stage 4 chronic kidney disease, without long-term current use of insulin ([facility])- Primary Type 2 diabetes mellitus without complication, without long-term current use of insulin ([facility]) Left lower quadrant abdominal pain- Primary Morbid (severe) obesity due to excess calories ([facility]) Body mass index (BMI) 45.0-49.9, adult ([facility]) Restless leg syndrome Restless legs syndrome (RLS) Stage 3b chronic kidney disease ([facility]) Type 2 diabetes mellitus with other circulatory complications (HCC)- Primary Type 2 diabetes mellitus with stage 4 chronic kidney disease, without long-term current use of insulin ([facility]) Type 2 diabetes mellitus with stage 3a chronic kidney disease, without long-term current use of insulin ([facility]) Class 3 severe obesity due to excess calories with serious comorbidity and body mass index (BMI) of 45.0 to 49.9 in adult ([facility]) Primary hypertension- Primary Unspecified essential hypertension Spinal stenosis of lumbar region at multiple levels Restless leg syndrome Restless legs syndrome (RLS) URIEL (obstructive sleep apnea) Obstructive sleep apnea (adult) (pediatric) Coronary arteriosclerosis Coronary atherosclerosis of unspecified type of vessel, [place] or graft Stage 3b chronic kidney disease ([facility]) Swelling of both lower extremities Lower extremity edema Edema Type 2 diabetes mellitus with stage 3a chronic kidney disease, without long-term current use of insulin ([facility]) Class 3 severe obesity due to excess calories with serious comorbidity and body mass index (BMI) of 45.0 to 49.9 in adult ([facility]) Bipolar affective disorder, remission status unspecified ([facility]) Generalized anxiety disorder Generalized anxiety disorder Vitamin D deficiency Vitamin B12 deficiency Other B-complex deficiencies H/O bariatric surgery Acute non-recurrent pansinusitis Class 2 severe obesity due to excess calories with serious comorbidity and body mass index (BMI) of 38.0 to 38.9 in adult ([facility])- Primary Type 2 diabetes mellitus with other circulatory complications ([facility]) Type 2 diabetes mellitus with stage 3a chronic kidney disease, without long-term current use of insulin ([facility]) Encounter for wellness examination in adult- Primary Encounter for screening mammogram for malignant neoplasm of breast Primary hypertension Unspecified essential hypertension Chronic diastolic heart failure (HCC) Chronic diastolic heart failure Stage 3b chronic kidney disease ([facility]) Class 2 severe obesity due to excess calories with serious comorbidity and body mass index (BMI) of 38.0 to 38.9 in adult ([facility]) Type 2 diabetes mellitus with stage 3a chronic kidney disease, without long-term current use of insulin ([facility]) Mixed hyperlipidemia Mixed hyperlipidemia Type 2 diabetes mellitus with other circulatory complications (HCC)- Primary Type 2 diabetes mellitus with stage 3a chronic kidney disease, without long-term current use of insulin (HCC) Type 2 diabetes mellitus with stage 4 chronic kidney disease, without long-term current use of insulin (HCC) Type 2 diabetes mellitus without complication, without long-term current use of insulin (HCC) Class 2 severe obesity due to excess calories with serious comorbidity and body mass index (BMI) of 36.0 to 36.9 in adult ([facility]) Muscle spasm Spasm of muscle documented in this encounter [facility] HealthcareHistory general [...] History Tonsilectomy Teenager Hospitalization History See [facility] Other History general Narrative - Reported* Type [...] BACK SURGERY 07/2021 Hospitalization History [facility] Other Summary Purpose Family History Relationship Condition [...] 4:43pm Hospital Course Note MR#: [id number] [facility] Pt. Name: Sherly Humphreys Admitted: 08/23/2018 [...] 1 Thoracic myelopathy (M47.14) Referral Organization [facility] urosurgery Referring Provider First Name Christian Referring Provider Last Name Alfonso Referring Provider Specialty Neurologica l Surgery Referred Organization [facility] t Referred Provider Ivan Sams Referred Address [address],[phone] Referred Provider Specialty Pain Medicin e Referral [...] back pain (M54.5 ) Referral Organization [facility] urosurgery Referring Provider First Name Christian Referring [...] and content) DATE CREATED AUTHOR 11/22/2018 [facility] DATE CREATED AUTHOR AUTHOR'S ORGANIZ ATION 09/22/2022 [facility] pital DATE CREATED AUTHOR AUTHOR'S ORGANIZ ATION 05/26/2023 [facility] DATE CREATED AUTHOR AUTHOR'S ORGANIZ ATION 12/14/2023 [facility] DATE CREATED AUTHOR AUTHOR'S ORGANIZ ATION 10/18/2024 [facility] DATE CREATED AUTHOR AUTHOR'S ORGANIZ ATION 11/04/2024 [facility] EPIC DATE CREATED AUTHOR AUTHOR'S ORGANIZ ATION 11/07/2024 [facility] REASON FOR VISIT (unrecogniz ed section and content) Reason Comments Diabetes Reason Comments Med Refill Reason Comments Annual Exam Hypertension Care Teams (unrecognized sec tion and content) [...] Status: Active Member Role Status Dates [facility] Active Sta rt: March 15, 2023 Valdemar Alonso MD Attending Provider Active Start: March 15, 2023 Team Status: Inactive Member Role Status Dates [facility] Active Christian Hamilton MD Attending Provider Active Team Status: Inactive Member Role Status Dates [facility] Active Emma Bolivar NP Attending Provider Active Team Status: Inactive Member Role Status Dates [facility] Provider Active Merissa Hernandez [facility]- Emergency Provider Active Team Status: Inactive Member Role Status Dates [facility] Provider Active Sta rt: August 15, 2023 End: August 15, 2023 Halle Mac MD Attending Provider Active Star t: August 15, 2023 End: August 15, 2023 Team Status: Active Member Role Status Dates [facility] Provider Active Sta rt: September 03, 2023 Valdemar Alonso MD Attending Provider Active Start: September 03, 2023 Team Status: Inactive Member Role Status Dates [facility] Active Sta rt: October 01, 2023 End: October 02, 2023 Alma Deng MD Admit Provider Active Start: October 01, 2023 End: October 02, 2023 Des Benitez MD Other Provider Active Start: 2023 End: October 02, 2023 Fernando Rosenberg MD Attending Provider Active Start: October 01, 2023 End: October 02, 2023 Team Status: Active Member Role Status Dates [facility] Provider Active Sta rt: October 01, 2023 Alma Deng MD Admit Provider Active Start: October 01, 2023 Des Benitez MD Attending Provider, Other Provider Active Start: October 01, 2023 Fernando Rosenberg MD Other Provider Active Start: October 01, 2023 Team Status: Inactive Member Role Status Dates [facility] Care Provider Active Sta rt: [...] November 01, 2023 End: November 01, 2023 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 Start Date End Date Markel Haq MD [address] [place] [phone] PCP - General Family Medicine 05/03/23 Janene Lew NP [address] [place] [address] PCP - [place] [employer] 09/15/23 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 Start Date End Date Markel Haq MD [address] [place] [address] PCP - General Family Medicine 05/03/23 Janene Lew NP [address] [place] [address] PCP - [place] [employer] 09/15/23 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 Start Date End Date Markel Haq MD [address] [place] [phone] PCP - General Family Medicine 05/03/23 Janene Lew NP [address] [place] [address] PCP - [place] [employer] 09/15/23 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 Start Date End Date Markel Haq MD [address] [place] [address] PCP - General Family Medicine 05/03/23 Janene Lew NP [address] [place] [address] PCP - [place] [employer] 09/15/23 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 Start Date End Date Markel Haq MD [address] [place] [address] PCP - General Family Medicine 05/03/23 Janene Lew NP [address] [place] [address] PCP - [place] [employer] 09/15/23 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 Start Date End Date Markel Haq MD [address] [place] [address] PCP - General Family Medicine 05/03/23 Janene Lew NP [address] [place] [address] PCP - [place] [employer] 09/15/23 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 Start Date End Date Markel Haq MD [address] [place] [address] PCP - General Family Medicine 05/03/23 Janene Lew NP [address] [place] [address] PCP - [place] [employer] 09/15/23 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 Start Date End Date Markel Haq MD [address] [place] [address] PCP - General Family Medicine 05/03/23 Janene Lew NP [address] [place] [address] PCP - [place] [employer] 09/15/23 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 Start Date End Date Markel Haq MD [address] [place] [address] PCP - General Family Medicine 05/03/23 Janene Lew NP [address] [place] [address] PCP - [place] [employer] 09/15/23 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 Start Date End Date Markel Haq MD [address] [place] [address] PCP - General Family Medicine 05/03/23 Janene Lew NP [address] [place] [address] PCP - [place] [employer] 09/15/23 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 Start Date End Date Markel Haq MD [address] [place] [address] PCP - General Family Medicine 05/03/23 Janene Lew NP [address] [place] [address] PCP - [place] [employer] 09/15/23 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 Start Date End Date Markel Haq MD [address] [place] [address] PCP - General Family Medicine 05/03/23 Janene Lew NP [address] [place] [address] PCP - [place] [employer] 09/15/23 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 Start Date End Date Markel Haq MD [address] [place] [address] PCP - General Family Medicine 05/03/23 Janene Lew NP [address] [place] [address] PCP - [place] [employer] 09/15/23 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 Start Date End Date Markel Haq MD [address] [place] [address] PCP - General Family Medicine 05/03/23 Janene Lew NP [address] [place] [address] PCP - [place] [employer] 09/15/23 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 Start Date End Date Markel Haq MD [address] [place] [address] PCP - General Family Medicine 05/03/23 Janene Lew NP [address] [place] [address] PCP - [place] [employer] 09/15/23 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 Start Date End Date Markel Haq MD [address] [place] [address] PCP - General Family Medicine 05/03/23 Janene Lew NP [address] [place] [address] PCP - [place] [employer] 09/15/23 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 Start Date End Date Markel Haq MD [address] [place] [phone] PCP - General Family Medicine 05/03/23 Janene Lew NP [address] [place] [address] PCP - [place] [employer] 09/15/23 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 Start Date End Date Markel Haq MD [address] [place] [address] PCP - General Family Medicine 05/03/23 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 Start Date End Date Markel Haq MD [address] [place] [phone] PCP - General Family Medicine 05/03/23 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 Start Date End Date Markel Haq MD [address] [place] [phone] PCP - General Family Medicine 05/03/23 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 Start Date End Date Markel Haq MD [address] [place] [phone] PCP - General Family Medicine 05/03/23 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 Start Date End Date Markel Haq MD [address] [place] [phone] PCP - General Family Medicine 05/03/23 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 Start Date End Date Markel Haq MD [address] [place] [phone] PCP - General Family Medicine 05/03/23 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 Start Date End Date Markel Haq MD [address] [place] [phone] PCP - General Family Medicine 05/03/23 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 Start Date End Date Markel Haq MD [address] [place] [address] PCP - General Family Medicine 05/03/23 Goals (unrecognized section and content) Goals may [...] BE BASED ON THE PRIMARY CLINICAL RECORDS. [email or web address] provides no warranty or guarantee of the accuracy or completeness of information in this document.
--- NOTE | 2024-11-13 09:36 | PC.NURSE ---
Nursing Note Cardiac Stress Test Reviewed: Medication, allergies and patient history reviewed. Stress Test: [x ] Patient tolerated stress test well. [ ] Patient unable to tolerate walking on treadmill. Switched to Lexiscan stress test. [ ] No chest pain noted per patient [x ] Chest pain that resolved prior to leaving stress lab. [x ] No dyspnea noted. [ ] Dyspnea that resolved prior to leaving stress lab. [x ] Patient left stress lab asymptomatic and hemodynamically stable. [ ] Patient taken to the Emergency Room due to non-resolving symptoms following stress test. [ ] Patient achieved target heart rate. [ ] Patient unable to achieve target heart rate. [ ] Aminophylline administered as reversal agent to Lexiscan (Regadenoson). [ ] Nitro administered. Nursing Comments:Pt had 2\10 chest pressure that resolved within 2 minutes after lexiscan was given. Pt states she had no symptoms at time of dc from stress lab.
[2024-11-13] MEDS: REGADENOSON 0.4 MG/5 ML SYRINGE IV (09:41)
--- NOTE | 2024-11-17 08:45 | P.STRESS_ITS ---
Stress Test Stress Test Allergies Allergy/AdvReac Type Severity Reaction Status Date / Time Sulfa (Sulfonamide Allergy Mild Hives Verified 10/07/24 11:26 Antibiotics) prochlorperazine (From AdvReac Intermediate Agitated Verified 10/07/24 11:26 Compazine) promethazine (From Phenergan) AdvReac Intermediate Agitated Verified 10/07/24 11:26 sulfamethoxazole (From AdvReac Mild Hives Verified 10/07/24 11:26 Bactrim) trimethoprim (From Bactrim) AdvReac Mild Hives Verified 10/07/24 11:26 Requesting physician: Tk Godoy Procedure: This was a Lexiscan stress test with myocardial perfusion imaging performed at the [facility] on 11/13/2024. Intravenous line was secured. The patient was attached to electrocardiographic monitoring. Baseline vital signs and ECG were obtained. Lexiscan 0.4 mg was administered intravenously followed by administration of Cardiolite. The patient then went on to obtain myocardial perfusion imaging. Resting heart rate was 46 bpm and peak heart rate was 64 bpm. Resting blood pressure was 117/73 and peak blood pressure was 130/66. General Information: Reason for Stress Test: CAD, preop evaluation. Cardiac History and Risk Factors: Hypertension. Resting 12 - Lead Electrocardiogram: Marked sinus bradycardia, low voltage QRS, cannot rule out anterior infarct, age undetermined. Stress Test: Protocol: Pharmacologic stress with Lexiscan. Exercise Capacity: Not assessed. Blood Pressure Response: Controlled blood pressure. Rhythm: Sinus with occasional PVCs. ST - Response: No ischemic ST changes. Patient Response: Mild chest pain that resolved within 2 minutes. Interpretation: 1. No evidence of ischemic ECG changes seen following infusion of Lexiscan. 2. Myocardial perfusion images will be reported separately.
== END 2024-11-13 07:15 | disposition home or self-care (01) ==
LOC: NM 07:14
PROVIDERS: PCP Nurse Practitioner; Visit Provider Internal Medicine Interventional Cardiology
DX: Z01.810 Encounter for preprocedural cardiovascular examination (principal); Z01.818 Encounter for other preprocedural examination; I25.10 Atherosclerotic heart disease of native coronary artery without angina pectoris
CPT/HCPCS: 78452; 93017; A9500; J2785

== ENCOUNTER 2024-11-24 18:56 | Emergency (ER) | payer BC, SELFPAY ==
[2024-11-24 19:04] VITALS: BP 136/87; PULSE 67; TEMP 36.8; O2SAT 98; BMI 41.2
--- NOTE | 2024-11-24 19:12 | XR_ITS ---
[address] [address] Patient Name: SHARLENE HUMPHREYS MRN: [id number] date: 1970 Sex: F Assigned Patient Location: ER Current Patient Location: ED.MAIN Accession/Order Number: [id number] Exam Date: 11/24/2024 19:39 Report Date: 11/24/2024 19:40 At the request of: YARIEL LARIOS DO Procedure: XR chest 2V Plain film chest 2 view HISTORY: Cough COMPARISON: 10/07/2024 FINDINGS: SUPPORT DEVICES: None POSTSURGICAL CHANGES: None HEART: Within normal limits PULMONARY JOSEPH: Within normal limits MEDIASTINUM: Unremarkable LUNGS AND PLEURA: No acute lung process, pleural effusion or pneumothorax identified. Similar mild right hemidiaphragm elevation BONY STRUCTURES: Intact ADDITIONAL FINDINGS None XR/XR chest 2V IMPRESSION: No acute process. Impression dictated by: Mack Guallpa M.D. 11/24/2024 7:40 PM [facility]ation [facility] Electron[facility] authenticated by: [id number] Y Date: 11/24/2024 19:40
[2024-11-24 19:34] LABS: SARS-CoV-2 Ag NEGATIVE (NEGATIVE)
--- NOTE | 2024-11-24 21:45 | ED.URI1 ---
HPI - URI/Sore Throat General Chief Complaint: Upper Respiratory Infection Stated Complaint: COUGH, FEVER, HEADACHE Time Seen by Provider: 11/24/24 21:34 Source: patient History of Present Illness HPI Narrative: I signed up for this patient. When they went to go get her in triage she left without being seen. Related Data Home Medications ?Medication ?Instructions ?Recorded ?Confirmed amlodipine 10 mg tablet 10 mg PO QDAY 12/18/22 10/07/24 aspirin 81 mg chewable tablet 81 mg PO QDAY 12/18/22 10/07/24 atorvastatin 80 mg tablet 80 mg PO QDAY 12/18/22 10/07/24 buspirone 30 mg tablet 30 mg PO BID 12/18/22 10/07/24 cariprazine 6 mg capsule (Vraylar) 6 mg PO Q24H 12/18/22 10/07/24 fenofibrate nanocrystallized 145 145 mg PO QDAY 12/18/22 10/07/24 mg tablet gabapentin 600 mg tablet 600 mg PO QDAY PRN neuromuscular 12/18/22 10/07/24 blockade isosorbide mononitrate 30 mg 30 mg PO QDAY 12/18/22 10/07/24 tablet,extended release 24 hr metoprolol succinate 25 mg 12.5 mg PO QDAY 12/18/22 10/07/24 tablet,extended release 24 hr sacubitril 49 mg-valsartan 51 mg 0.5 tab PO BID 12/18/22 10/07/24 tablet (Entresto) tizanidine 4 mg tablet 4 mg PO Q8H PRN muscle spasticity 12/18/22 10/07/24 cetirizine 10 mg tablet (Zyrtec) 10 mg PO DAILY PRN allergy symptoms 01/01/23 10/07/24 ferrous sulfate 134 mg (27 mg 134 mg PO BID 01/01/23 10/07/24 iron) tablet (High Potency Iron) tirzepatide 5 mg/0.5 mL 5 mg subcut QWEEK 10/01/24 10/01/24 subcutaneous pen injector (Marcelinounkyreero) aripiprazole 30 mg tablet 30 mg PO DAILY 10/07/24 10/07/24 benztropine 0.5 mg tablet 0.5 mg PO BID 10/07/24 10/07/24 cholecalciferol (vitamin D3) 125 5,000 unit PO DAILY 10/07/24 10/07/24 mcg (5,000 unit) capsule cyanocobalamin (vitamin B-12) 2,000 mcg sublingual DAILY 10/07/24 10/07/24 1,000 mcg sublingual lozenge fluoxetine 10 mg capsule 10 mg PO DAILY 10/07/24 10/07/24 fluoxetine 40 mg capsule 40 mg PO DAILY 10/07/24 10/07/24 fluticasone propionate 50 2 spray intranasal Q12H 10/07/24 10/07/24 mcg/actuation nasal spray,suspension nitroglycerin 0.4 mg sublingual 0.4 mg sublingual Q5M PRN chest 10/07/24 10/07/24 tablet pain sennosides 8.6 mg-docusate sodium 1 tab-cap PO DAILY 10/07/24 10/07/24 50 mg capsule Previous Rx's ?Medication ?Instructions ?Recorded oxycodone-acetaminophen 7.5 mg-325 1 tab PO BID PRN pain #60 tabs 05/15/25 mg tablet (Percocet) oxycodone-acetaminophen 7.5 mg-325 1 tab PO BID PRN pain #60 tabs 07/16/25 mg tablet (Percocet) Allergies Allergy/AdvReac Type Severity Reaction Status Date / Time Sulfa (Sulfonamide Allergy Mild Hives Verified 10/07/24 11:26 Antibiotics) prochlorperazine (From AdvReac Intermediate Agitated Verified 10/07/24 11:26 Compazine) promethazine (From Phenergan) AdvReac Intermediate Agitated Verified 10/07/24 11:26 sulfamethoxazole (From AdvReac Mild Hives Verified 10/07/24 11:26 Bactrim) trimethoprim (From Bactrim) AdvReac Mild Hives Verified 10/07/24 11:26 PFSH PFSH Medical History (Updated 10/07/24 @ 14:03 by Shanika Cm NP) Back pain ?M54.9 - Dorsalgia, unspecified (ICD-10) Arthritis ?M19.90 - Unspecified osteoarthritis, unspecified site (ICD-10) Diverticulosis ?K57.90 - Diverticulosis of intestine, part unspecified, without perforation or abscess without bleeding (ICD-10) Extremity edema ?R60.0 - Localized edema (ICD-10) Delayed recovery from anesthesia MRSA infection ?A49.02 - Methicillin resistant Staphylococcus aureus infection, unspecified site (ICD-10) Stage III chronic kidney disease ?N18.30 - Chronic kidney disease, stage 3 unspecified (ICD-10) Spinal stenosis of thoracolumbar region ?M48.05 - Spinal stenosis, thoracolumbar region (ICD-10) Spinal stenosis of lumbar region at multiple levels ?M48.061 - Spinal stenosis, lumbar region without neurogenic claudication (ICD-10) Seasonal allergies ?J30.2 - Other seasonal allergic rhinitis (ICD-10) RLS (restless legs syndrome) ?G25.81 - Restless legs syndrome (ICD-10) Kidney stones ?N20.0 - Calculus of kidney (ICD-10) Myalgia ?M79.10 - Myalgia, unspecified site (ICD-10) Migraine ?G43.909 - Migraine, unspecified, not intractable, without status migrainosus (ICD-10) Microscopic hematuria ?R31.29 - Other microscopic hematuria (ICD-10) Lumbar disc herniation ?M51.26 - Other intervertebral disc displacement, lumbar region (ICD-10) Lower extremity edema ?R60.0 - Localized edema (ICD-10) Irritable bowel syndrome with diarrhea ?K58.0 - Irritable bowel syndrome with diarrhea (ICD-10) Insomnia ?G47.00 - Insomnia, unspecified (ICD-10) Hypomagnesemia ?E83.42 - Hypomagnesemia (ICD-10) Hyperlipidemia ?E78.5 - Hyperlipidemia, unspecified (ICD-10) Hyperkalemia ?E87.5 - Hyperkalemia (ICD-10) GERD (gastroesophageal reflux disease) ?K21.9 - Gastro-esophageal reflux disease without esophagitis (ICD-10) Fatigue ?R53.83 - Other fatigue (ICD-10) Dyspnea ?R06.00 - Dyspnea, unspecified (ICD-10) Depression ?F32.A - Depression, unspecified (ICD-10) Lumbar degenerative disc disease ?M51.369 - Other intervertebral disc degeneration, lumbar region without mention of lumbar back pain or lower extremity pain (ICD-10) Postlaminectomy syndrome ?M96.1 - Postlaminectomy syndrome, not elsewhere classified (ICD-10) Coronary arteriosclerosis ?I25.10 - Atherosclerotic heart disease of [place] coronary artery without angina pectoris (ICD-10) C. difficile diarrhea ?A04.72 - Enterocolitis due to Clostridium difficile, not specified as recurrent (ICD-10) Bradycardia ?R00.1 - Bradycardia, unspecified (ICD-10) Anemia ?D64.9 - Anemia, unspecified (ICD-10) Abdominal hernia ?K46.9 - Unspecified abdominal hernia without obstruction or gangrene (ICD-10) Hypertension ?I10 - Essential (primary) hypertension (ICD-10) Bipolar 1 disorder ?F31.9 - Bipolar disorder, unspecified (ICD-10) Anxiety ?F41.9 - Anxiety disorder, unspecified (ICD-10) Diabetes ?E11.9 - Type 2 diabetes mellitus without complications (ICD-10) URIEL on CPAP ?G47.33 - Obstructive sleep apnea (adult) (pediatric) (ICD-10) Sleep apnea ?G47.30 - Sleep apnea, unspecified (ICD-10) High cholesterol ?E78.00 - Pure hypercholesterolemia, unspecified (ICD-10) CHF (congestive heart failure) ?I50.9 - Heart failure, unspecified (ICD-10) Surgical History (Updated 10/07/24 @ 11:44 by Shanika Cm NP) S/P epidural steroid injection ?Z92.241 - Personal history of systemic steroid therapy (ICD-10) H/O colonoscopy ?Z98.890 - Other specified postprocedural states (ICD-10) H/O cervical spine surgery ?Z98.890 - Other specified postprocedural states (ICD-10) H/O bariatric surgery ?Z98.84 - Bariatric surgery status (ICD-10) History of hysterectomy ?Z90.710 - Acquired absence of both cervix and uterus (ICD-10) History of shoulder surgery ?Z98.890 - Other specified postprocedural states (ICD-10) History of neck surgery ?Z98.890 - Other specified postprocedural states (ICD-10) History of back surgery ?Z98.890 - Other specified postprocedural states (ICD-10) History of heart artery stent (~2009) ?Z95.5 - Presence of coronary angioplasty implant and graft (ICD-10) Family History (Updated 10/07/24 @ 11:44 by Shanika Cm NP) Other Family history of DVT Family history of aneurysm Family history of cancer Family history of coronary artery disease Family history of diabetes mellitus Family history of heart disease Family history of hypertension Family history of myocardial infarction Family history of renal failure Family history of stroke Social History (Updated 10/07/24 @ 11:38 by Shanika Cm NP) Within the past year, how often did you have a drink containing alcohol: never Score interpretation: A score less than 3 is consistent with normal alcohol consumption. Smoking status: Never smoker Non-prescribed substance use: denies use Previous occupational history: [employer] Highest level of school completed/degree received: high school graduate Little interest or pleasure in doing things: not at all Feeling down, depressed, or hopeless: not at all Exam Constitutional Vital Signs, click to edit/add: Last Vital Signs Temp 98.2 F 11/24/24 19:04 Pulse 67 11/24/24 19:04 Resp 18 11/24/24 19:04 BP 136/87 11/24/24 19:04 Pulse Ox 98 11/24/24 19:04 O2 Del Method Room Air 11/24/24 19:04 Course Vital Signs Vital signs: Vital Signs Temperature 98.2 F 11/24/24 19:04 Pulse Rate 67 11/24/24 19:04 Respiratory Rate 18 11/24/24 19:04 Blood Pressure 136/87 11/24/24 19:04 Pulse Oximetry 98 11/24/24 19:04 Oxygen Delivery Method Room Air 11/24/24 19:04 Temperature 98.2 F 11/24/24 19:04 Pulse Rate 67 11/24/24 19:04 Respiratory Rate 18 11/24/24 19:04 Blood Pressure 136/87 11/24/24 19:04 Pulse Oximetry 98 11/24/24 19:04 Oxygen Delivery Method Room Air 11/24/24 19:04 MDM - URI/Sore Throat Lab Data Labs: Lab Results 11/24/24 Range/Units 19:09 SARS-CoV-2 Ag (CV2AG) Negative (NEGATIVE) Discharge Plan Discharge Patient Disposition: Left Without Being Seen Discharge Date/Time: 11/24/24 21:35
== END 2024-11-24 21:35 | disposition left against medical advice (07) ==
PROVIDERS: Emergency Provider Emergency Medicine; PCP Nurse Practitioner
DX: Z53.21 Procedure and treatment not carried out due to patient leaving prior to being seen by health care provider (principal); R05.9 Cough, unspecified
CPT/HCPCS: 71046; 87811; 99284

== ENCOUNTER 2024-12-06 10:23 | Outpatient (OUT) | payer BC, SELFPAY ==
--- OUTSIDE RECORDS SUMMARY | 2024-03-21 05:00 | XMS_ITS ---
Author Organization [facility] Address [address] [place] [address] Care Team Providers Care Arcgis Developer Name Role Phone ELIZABETH DIAMOND CNP Primary Care Provider Leatha Garrison Unavailable [phone] REASON FOR VISIT LUMBAR PAIN Encounters Encounter Location Date Provider Diagnosis [facility] Office [address] [place] [address] [place] [address] 03/21/2024 eLatha Hernandez Plan Of Treatment Pending Test Test Name Order Date Lumbar spine, 4v flex ext - 83920 2023 Progress Notes * SHARLENE HUMPHREYS ADOB: [birth year] (53 yo F)Acc No.[id number]:03/21/2024 Patient: SHARLENE MILLER Provider: Lizet Loya MD, PhD :1970 A ge:53 Y S ex:Female Date:03/21/2024 [facility]-[address] Pcp:ELIZABETH DIAMOND CNP Subjective: * Chief Complaints: * 1 . LUMBAR PAIN. * Medical History: Objective: * Vitals: Assessment: Plan: * Treatment: Forms: * Images: * Electronic signature of John Paul Hernandez MD, PHD on 12/06/2024 at 10:26 AM EDT Sign off status: Pending * Provider: Lizet Loya MD, PhD Date: 1 05/22/2023 Generated for Cinthia franco/Sony/eTransmitting on: 0 12/06/2024 10:26 AM EDT
--- OUTSIDE RECORDS SUMMARY | 2024-04-04 06:30 | XMS_ITS ---
Author Organization [facility] Address [address] [place] [address] Care Team Providers Care Institutional Custodian Name Role Phone ELIZABETH DIAMOND CNP Primary Care Provider Leatha Garrison Unavailable [phone] REASON FOR VISIT BACK PAIN , SCS CONSULT, MRI/DREW Encounters Encounter Location Date Provider Diagnosis [facility] [address] [place] [address] [place] [address] 04/04/2024 Leatha Hernandez Plan Of Treatment Pending Test Test Name Order Date Lumbar spine, 4v flex ext - 51614 2023 Progress Notes * SHARLENE HUMPHREYS ADOB: [birth year] (53 yo F)Acc No.[id number]:04/04/2024 Patient: SHARLENE MILLER Provider: Lizet Loya MD, PhD :1970 A ge:53 Y S ex:Female Date:04/04/2024 [address] HOSPITALDH-[address] Pcp:ELIZABETH DIAMOND CNP Subjective: * Chief Complaints: * 1 . BACK PAIN , SCS CONSULT, MRI/DREW. * Medical History: Objective: * Vitals: Assessment: Plan: * Treatment: Forms: * Images: * Electronic signature of John Paul Hernandez MD, PHD on 12/06/2024 at 10:27 AM EDT Sign off status: Pending * Provider: Lizet Loya MD, PhD Date: 06/05/2023 Generated for Cinthia franco/Sony/Jonathanitting on: 0 12/06/2024 10:27 AM EDT
--- OUTSIDE RECORDS SUMMARY | 2024-11-26 05:56 | XMS_ITS | Continuity of Care Document ---
Author Organization [facility] Address [address] [place] [address] Phone Care Team Providers Care Supervisor Steffen House Name Role Phone Janene Lew Primary Care Provider [phone] Valdemar Alonso MD Attending Provider Halle Mac MD Attending Provider Care Teams Patient Care Team Team Status: Active Member Role Status Dates Janene Lew Primary Care Provider Active Visit Care Team Team Status: Active Member Role Status Dates Janene Lew Primary Care Provider Active Sta rt: November 06, 2024 Valdemar Alonso MD Attending Provider Active Start: November 06, 2024 Visit Care Team Team Status: Inactive Member Role Status Dates Janene Lew Primary Care Provider Active Sta rt: November 18, 2024 End: November 18, 2024 Halle Mac MD Attending Provider Active Star t: November 18, 2024 End: November 18, 2024 Patient Care Team Team Status: Inactive Member Role Status Dates Janene Lew Primary Care Provider Active Sta rt: November 26, 2024 End: November 26, 2024 Halle Mac MD Attending Provider Active Star t: November 26, 2024 End: November 26, 2024 Chief Complaint and Reason for Visit Chief Complaint Admit Date BH November 06, 2024 9:16 am E87.5 E79.0 E83.42 E53.8 E55.9 E61.1 Nov us2024 2:12pm Renal 6 month follow up November 26 9:38am Reason for Visit Admit Date 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 November 26, 2024 9:38am Hyperkalemia November 26, 2024 9: 38am Hyperuricemia November 26, 2024 9: 38am Hypomagnesemia November 26, 2024 9: 38am Iron deficiency November 26, 2024 9: 38am Localized edema November 26, 2024 9: 38am Morbid obesity November 26, 2024 9: 38am Stage 3b chronic kidney disease November 142024 9:38am Vitamin B12 deficiency November 26, 2024 9:38am Vitamin D deficiency November 26, 2024 9 :38am Hypertensive nephropathy November 26 9:38am Allergies, Adverse Reactions, Alerts Allergen Type Severity Reaction Last Updated Verified Status Comments Penicillins Allergy Unknown Rash November 26, 2024 8:36am Yes Active prochlorperazine Allergy Unknown Seizure November 142024 8:36am Yes Active promethazine Allergy Unknown Seizure November 26, 2024 8:36am Yes Active sulfamethoxazole Allergy Unknown Rash November 142024 8:36am Yes Active trimethoprim Allergy Unknown Rash November 26, 2024 8:36am Yes Active zolpidem Allergy Unknown Unknown Reaction November 26, 2024 8:36am Yes Active per pt empagliflozin Allergy Unknown Unknown Reaction November 26, 2024 8:36am Yes Active Social History Smoking Status Status Start Date End Date Date of Observa tion Never smoked tobacco (finding) November 01, 2023 7:39am Observation Status Observation Response Date of Response Legal Sex Female (finding) Sex Assigned At Female 1970 Family History Relationship Condition Age at Onset Recorded Date/T antony mother Malignant neoplasm of head and neck Unkno wn Diabetes mellitus Unknown Myocardial infarction Unknown sister Diabetes mellitus Unknown Myocardial infarction Unknown father Myocardial infarction Unknown brother Myocardial infarction Unknown brother Family history of mental disorder Unknown Hypertension Unknown father Heart disease Unknown Family history of mental disorder Unknown Hypertension Unknown Unknown mother Hypertension Unknown History of stroke Unknown Diabetes mellitus Unknown Family history of mental disorder Unknown Malignant neoplasm Unknown Unknown sister Family history of mental disorder Unknown Diabetes mellitus Unknown Hypertension Unknown Problems Active Problems Medical Problem Onset Date Status Stage 3b chronic kidney disease Unknown Active Displacement of lumbar intervertebral disc with radiculopathy Unknown Active History of PTCA Unknown Active Localized edema Unknown Active Morbid obesity Unknown Active Vitamin B12 deficiency Unknown Active Type 2 diabetes mellitus Unknown Active Coronary artery disease Unknown Active Intractable back pain Unknown Active Hyperlipidemia Unknown Active Hyperuricemia Unknown Active Diabetic nephropathy associated with type 2 diab etes mellitus Unknown Active Headache, tension-type Unknown Active Radiculopathy Unknown Active Acute kidney injury superimposed on CKD Unknown Active Declining functional status Unknown Acti ve Herniation of 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 Unknown Active Chest pain Unknown Active Hypertension Unknown Active Vitamin D deficiency Unknown Active Hyperkalemia Unknown Active Iron deficiency Unknown Active Hypomagnesemia Unknown Active Inactive/Resolved Problems Medical Problem Onset Date Status Anemia of renal disease Unknown Resolved Hypertensive nephropathy Unknown Resolve d Medications Medication Status Dose Units Route Directions Qty Days St art Date Stop Date End Date Instructions Adherence Atorvastati n 40 mg tablet Discont inued 40 MG PO Bedtime [facility]2021 1:00am August 15, 2023 10:06 am Tizanidine 4 mg tablet Discont inued 4 MG PO Bedtime [facility] 2021 1:00am August 13, 2021 2:52p m Isosorbide Mononitrate 30 mg tablet extended release 24 hr Discont inued 30 MG PO Daily 2021 1:00am October 02, 2023 10:56 am Buspirone 30 mg tablet Active 30 MG PO Twice daily [facility] 2021 1:00am Complies with drug therapy Mirtazapine 15 mg tablet Discont inued 30 MG PO Bedtime 2021 1:00am August 15, 2023 10:11 am Metoprolol Succinate 25 mg tablet extended release 24 hr Active 12.5 MG PO Daily [facility] 2021 1:00am Complies with drug therapy Pioglitazon e 30 mg tablet Discont inued 45 MG PO Daily [facility] 2021 1:00am August 15, 2023 10:05 am Lisinopril 40 mg tablet Discont inued 40 MG PO Daily [facility] 2021 1:00am August 15, 2023 10:09 am Fluticasone Propionate 50 mcg/actuati on spray,suspe nsion Discont inued 2 SPRAY INTRAN JEY Daily 2021 1:00am October 16, 2023 1:14p m Glipizide 5 mg tablet Discont inued 5 MG PO Daily 2021 1:00am August 15, 2023 10:08 am Aripiprazol e 30 mg tablet Discont inued 30 MG PO Daily 2021 1:00am August 15, 2023 10:05 am Fenofibrate Nanocrystal lized 145 mg tablet Active 145 MG PO Daily 2021 1:00am Complies with drug therapy Cetirizine (Zyrtec) 10 mg Tablet Active 10 MG PO Daily 2021 1:00am Complies with drug therapy Aspirin 81 mg tablet,billy yed release (/EC) Active 81 MG PO Daily 90 2021 1:00am Complies with drug therapy Fluticasone Propionate 50 mcg/actuati on spray,suspe nsion Active 2 SPRAY INTRAN JEY Daily as needed for allergy symptoms October 16, 2023 1:10pm Complies with drug therapy Cyclobenzap rine 10 mg tablet Discont inued 10 MG PO Three times daily as needed for back spasms August 13, 2021 12:00a m June 24, 2022 6:53p m Ciprofloxac in Hcl (Cipro) 500 mg Tablet Discont inued 500 MG PO Q12H August 13, 2021 12:00a m August 15, 2023 10:07 am administer dose at least 2 hrs before/6 hrs after dairy products, calcium, zinc, and/or iron-containi ng products Oxycodone 5 mg Tablet Discont inued 5 - 10 MG PO Q6H as needed for Pain 50 August 13, 2021 June 24, 2022 6:53p m Prednisone 10 mg tablets,dos e pack Discont inued 1 dose pk PO per package directions August 13, 2021 12:00a m June 24, 2022 6:53p m take 4 tabs for 3 days then take 3 tabs for 3 days then take 2 tabs for 3 days then take 1 tab for 3 days Cyanocobala min (Vitamin B-12) 2,500 mcg tablet, sublingual Discont inued 2500 MCG SUBLIN GUAL Daily October 01, 2023 12:00a m Novem monty 2023 10:47 am Fluoxetine 10 mg capsule Discont inued 10 MG PO Daily October 01, 2023 12:00a m October 16, 2023 1:08p m Oxycodone-A cetaminophe n 7.5-325 mg tablet Discont inued 1 TAB PO Every 8 hours October 01, 2023 12:00a m October 16, 2023 1:14p m Spironolact one 25 mg tablet Discont inued 25 MG PO Daily October 01, 2023 12:00a m October 02, 2023 10:55 am On Hold: Until cleared by Nephrology Sunitade (nAabel) 2.5 mg/0.5 mL pen injector Discont inued 2.5 MG SUBCUT .weekly October 01, 2023 12:00a m October 16, 2023 1:12p m Mometasone (Allergy Nasal (Mometasone )) 50 mcg/actuati on spray,non-a erosol Discont inued 2 SPRAY INTRAN JEY Daily October 01, 2023 12:00a m October 16, 2023 1:11p m administer into each nostril Pramipexole 0.25 mg tablet Discont inued 0.25 MG PO Daily at bedtime October 01, 2023 12:00a m October 16, 2023 1:12p m Sacubitril- Valsartan (Entresto) 49-51 mg tablet Discont inued 1 TAB PO Twice daily October 01, 2023 12:00a m October 16, 2023 1:26p m Triamcinolo ne Acetonide 55 mcg/actuati on aerosol Discont inued 110 MCG INTRAN JEY Daily October 01, 2023 12:00a m October 16, 2023 1:12p m Gabapentin 600 mg tablet Discont inued 600 MG PO Every 8 hours 90 October 02, 2023 10:34a m October 16, 2023 1:14p m Oxycodone-A cetaminophe n 7.5-325 mg tablet Active 1 TAB PO Every 8 hours as needed for pain October 16, 2023 1:11pm Complies with drug therapy Oxycodone-A cetaminophe n 5-325 mg tablet Discont inued 1 TAB PO Q6H as needed for pain 10 June 24, 2022 August 15, 2023 10:12 am Lidocaine 5 % adhesive patch,medic ated Discont inued 1 PATCH TOPICA L Daily as needed for pain June 24, 2022 1:00am August 15, 2023 10:08 am leave on most painful area for up to 12 hrs Methylpredn isolone 4 mg tablets,dos e pack Discont inued 0 PO .COMPLEX June 24, 2022 1:00am August 15, 2023 10:09 am orally per package directions Tirzepatide (Mounjaro) 5 mg/0.5 mL pen injector Discont inued 5 MG SUBCUT every week October 16, 2023 12:00a m Novem monty 2023 10:38 am Fluoxetine (Prozac) 20 mg capsule Active 20 MG PO Daily October 16, 2023 12:00a m Complies with drug therapy Gabapentin 600 mg tablet Active 600 MG PO Every 8 hours as needed for restless leg(s) October 16, 2023 1:10pm Complies with drug therapy Amlodipine 10 mg tablet Active 10 MG PO Daily October 16, 2023 12:00a m Complies with drug therapy Sacubitril- Valsartan (Entresto) 49-51 mg tablet Active 0.5 TAB PO Twice daily October 16, 2023 1:24pm Complies with drug therapy Tirzepatide (Mounjaro) 5 mg/0.5 mL pen injector Discont inued 7.5 MG SUBCUT every week Novemb er 2023 10:32a m Novem monty 2023 10:38 am Aripiprazol e 20 mg tablet Discont inued 20 MG PO Daily August 15, 2023 12:00a m October 16, 2023 1:13p m Pioglitazon e (Actos) 45 mg tablet Active 45 MG PO Daily August 15, 2023 12:00a m Complies with drug therapy Amlodipine 10 mg tablet Discont inued 10 MG PO Daily August 15, 2023 12:00a m October 02, 2023 10:55 am Atorvastati n 80 mg tablet Active 80 MG PO Daily August 15, 2023 12:00a m Complies with drug therapy Gabapentin 600 mg tablet Discont inued 600 MG PO Every 6 hours August 15, 2023 12:00a m October 02, 2023 10:34 am Lamotrigine (Lamictal) 200 mg tablet Discont inued 200 MG PO Daily August 15, 2023 12:00a m [facility] 2023 10:32 am Furosemide (Lasix) 20 mg tablet Discont inued 20 MG PO Daily August 15, 2023 12:00a m [facility] 2024 9:42a m Cholecalcif juan alberto (Vitamin D3) 125 mcg (5,000 unit) capsule Discont inued 125 MCG PO Daily August 15, 2023 12:00a m [facility] 2024 9:50a m Tizanidine 4 mg tablet Active 4 MG PO Every 8 hours as needed for muscle spasm August 15, 2023 12:00a m Complies with drug therapy Cariprazine 6 mg capsule Active 6 MG PO Daily August 15, 2023 12:00a m Complies with drug therapy Tirzepatide (Mounjaro) 7.5 mg/0.5 mL pen injector Active 7.5 MG SUBCUT every week [facility] 2023 1:00am Complies with drug therapy Ropinirole 0.25 mg tablet Active 0.25 MG PO Daily at bedtime [facility] 2023 1:00am Complies with drug therapy Isosorbide Mononitrate 30 mg tablet extended release 24 hr Active MG PO [facility] 2023 1:00am Complies with drug therapy Nitroglycer in 0.4 mg tablet, sublingual Active 0.4 MG SUBLIN GUAL every 5 to 15 minutes as needed [facility] 2023 1:00am Complies with drug therapy Benztropine 0.5 mg tablet Active 0.5 MG PO Twice daily [facility] 2023 1:00am Complies with drug therapy Aripiprazol e 30 mg tablet Active 30 MG PO Daily [facility] 2023 1:00am Complies with drug therapy Cyanocobala min (Vitamin B-12) 2,500 mcg tablet, sublingual Discont inued 2500 MCG SUBLIN GUAL .q 48 hours [facility] 2023 10:47a m Augus t 2024 9:43a m Cyanocobala min (Vitamin B-12) 2,500 mcg tablet, sublingual Discont inued 2500 MCG SUBLIN GUAL Daily November 26, 2024 9:41am Augus t 2024 9:48a m Cyanocobala min (Vitamin B-12) 2,500 mcg tablet, sublingual Active 2500 MCG SUBLIN GUAL Every 48 hours November 26, 2024 9:48am Complies with drug therapy Cholecalcif juan alberto (Vitamin D3) 125 mcg (5,000 unit) capsule Active 6000 UNIT PO Daily November 26, 2024 9:50am Complies with drug therapy Immunizations Immunization Event Date Not Given Reason Dose Number Reservations Clerk Lot Number Vaccine Information Statement (VIS) Detail Administration Location COVID-19 mRNA, Comirnaty ([employer]) August 16, 2020 COVID-19 mRNA, Comirnaty ([employer]) September 06, 2020 COVID-19 mRNA, Comirnaty ([employer]) May 17, 2021 Quadrivalent Influenza March 15, 2018 Quadrivalent Influenza January 31, 2019 Relevant Diagnostic Tests and/or Laboratory Data Laboratory Results Test Collection Date/Time Result Date/Time Result Interpretation Reference Range Result Comment Performing Site Correcte d White Blood Count November 18, 2024 2:23pm November 18, 2024 2:58pm 9.7 10*3/uL 3.8-11.6 [facility] [id number] [address] [place] [address] Red Blood Count November 18, 2024 2:23pm November 18, 2024 2:58pm 3.67 10*6/uL 3.60-5.00 [facility] [id number] [address] [facility] [address] Hemoglob in November 18, 2024 2:23pm November 18, 2024 2:58pm 10.8 g/dL Below low normal 11.8-15.4 [facility] [id number] [address] [facility] [address] Hematocr it November 18, 2024 2:23pm November 18, 2024 2:58pm 33.1 % Below low normal 34.0-46.4 [facility] [id number] [address] [facility] [address] Mean Corpuscu lar Volume November 18, 2024 2:23pm November 18, 2024 2:58pm 90.3 fL 80-100 [facility] [id number] [address] [facility] [address] Mean Corpuscu lar Hemoglob in November 18, 2024 2:23pm November 18, 2024 2:58pm 29.5 pg 24.7-34.3 [facility] [id number] [address] [facility] [address] Mean Corpuscu lar Hemoglob in Concent November 18, 2024 2:23pm November 18, 2024 2:58pm 32.7 g/dL 32.0-35.0 [facility] [id number] [address] [facility] [address] Red Cell Distribu tion Width November 18, 2024 2:23pm November 18, 2024 2:58pm 13.9 % 11.9-15.3 [facility] [id number] [address] [facility] [address] Platelet Count November 18, 2024 2:23pm November 18, 2024 2:58pm 258 10*3/uL 150-450 [facility] [id number] [address] [facility] [address] Mean Platelet Volume November 18, 2024 2:23pm November 18, 2024 2:58pm 9.4 fL 6.3-10.7 [facility] [id number] [address] [facility] [address] Urine Color November 18, 2024 2:24pm November 18, 2024 3:03pm Yellow Yellow [facility] [id number] [address] [facility] [address] Urine Appearan ce November 18, 2024 2:24pm November 18, 2024 3:03pm Clear Clear [facility] [id number] [address] [facility] [address] Urine Specific [place] November 18, 2024 2:24pm November 18, 2024 3:03pm 1.038 Above high normal 1.001-1.03 0 [facility] [id number] [address] [facility] [address] Urine pH November 18, 2024 2:24pm November 18, 2024 3:03pm 5.0 5.0-9.0 [facility] [id number] [address] [facility] [address] Urine Leukocyt e Esterase November 18, 2024 2:24pm November 18, 2024 3:03pm 3+ Above high normal Negative [facility] [id number] [address] [facility] [address] Urine Nitrite November 18, 2024 2:24pm November 18, 2024 3:03pm Negative Negative [facility] [id number] [address] [facility] [address] Urine Protein November 18, 2024 2:24pm November 18, 2024 3:03pm Trace mg/dL Above high normal Negative [facility] [id number] [address] [facility] [address] Urine Glucose (UA) November 18, 2024 2:24pm November 18, 2024 3:03pm Normal mg/dL Normal [facility] [id number] [address] [facility] [address] Urine Ketones November 18, 2024 2:24pm November 18, 2024 3:03pm Negative Negative [facility] [id number] [address] [facility] [address] Urine Urobilin ogen November 18, 2024 2:24pm November 18, 2024 3:03pm 2 mg/dL Above high normal Normal [facility] [id number] [address] [facility] [address] Urine Bilirubi n November 18, 2024 2:24pm November 18, 2024 3:03pm 1+ Above high normal Negative [facility] [id number] [address] [facility] [address] Urine Occult Blood November 18, 2024 2:24pm November 18, 2024 3:03pm Negative Negative [facility] [id number] [address] [facility] [address] Urine RBC November 18, 2024 2:24pm November 18, 2024 3:05pm 1-2 [HPF] 0- [facility] [id number] [address] [facility] [address] Urine WBC November 18, 2024 2:24pm November 18, 2024 3:05pm 1-2 [HPF] 0-4 [facility] [id number] [address] [facility] [address] Urine Squamous Epitheli al Cells November 18, 2024 2:24pm November 18, 2024 3:05pm 1-2 [HPF] 0-2 [facility] [id number] [address] [facility] [address] Urine Bacteria November 18, 2024 2:24pm November 18, 2024 3:05pm None seen [HPF] None Seen [facility] [id number] [address] [facility] [address] Urine Hyaline Casts November 18, 2024 2:24pm November 18, 2024 3:05pm 9-19 [LPF] Above high normal 0-8 [facility] [id number] [address] [facility] [address] Urine Mucus November 18, 2024 2:24pm November 18, 2024 3:05pm Rare [LPF] [facility] [id number] [address] [facility] [address] Glucose Level November 18, 2024 2:23pm November 18, 2024 3:29pm 88 mg/dL 70-100 ADA recommended reference rangeRandom Glucose Reference Range is dependent on time and content of last meal. Glucose of more than 200 mg/dL in a nonstressed , ambulatory subject supports the diagnosis of Diabetes Mellitus. [facility] [id number] [address] [facility] [address] Blood Urea Nitrogen November 18, 2024 2:23pm November 18, 2024 3:29pm 25 mg/dL 7-25 [facility] [id number] [address] [facility] [address] Creatini ne November 18, 2024 2:23pm November 18, 2024 3:29pm 1.38 mg/dL Above high normal 0.60-1.20 [facility] [id number] [address] [facility] [address] Estimate d GFR (CKD-EPI ) November 18, 2024 2:23pm November 18, 2024 3:29pm 45.770 mL/Min [facility] [id number] [address] [facility] [address] Sodium Level November 18, 2024 2:23pm November 18, 2024 3:29pm 144 mmol/L 136-145 [facility] [id number] [address] [facility] [address] Potassiu m Level November 18, 2024 2:23pm November 18, 2024 3:29pm 4.6 mmol/L 3.5-5.1 [facility] [id number] [address] [facility] [address] Chloride Level November 18, 2024 2:23pm November 18, 2024 3:29pm 111 mmol/L Above high normal 98-107 [facility] [id number] [address] [facility] [address] Carbon Dioxide Level November 18, 2024 2:23pm November 18, 2024 3:29pm 28.3 mmol/L 21.0-31.0 [facility] [id number] [address] [facility] [address] Anion Gap November 18, 2024 2:23pm November 18, 2024 3:29pm 9.3 mEq/L 6.0-15.0 [facility] [id number] [address] [facility] [address] Calcium Level November 18, 2024 2:23pm November 18, 2024 3:29pm 9.6 mg/dL 8.6-10.3 [facility] [id number] [address] [facility] [address] Phosphor us Level November 18, 2024 2:23pm November 18, 2024 3:29pm 3.5 mg/dL 2.5-4.5 [facility] [id number] [address] [facility] [address] Magnesiu m Level November 18, 2024 2:23pm November 18, 2024 3:29pm 2.1 mg/dL 1.9-2.7 [facility] [id number] [address] [facility] [address] Albumin November 18, 2024 2:23pm November 18, 2024 3:29pm 4.1 g/dL 3.5-5.7 [facility] [id number] [address] [facility] [address] Uric Acid November 18, 2024 2:23pm November 18, 2024 3:29pm 5.1 mg/dL 2.3-6.6 [facility] [id number] [address] [facility] [address] Iron Level November 18, 2024 2:23pm November 18, 2024 3:29pm 64 ug/dL 50-212 [facility] [id number] [address] [facility] [address] Total Iron Binding Capacity November 18, 2024 2:23pm November 18, 2024 3:29pm 416 ug/dL 255-450 [facility] [id number] [address] [facility] [address] Iron Saturati on November 18, 2024 2:23pm November 18, 2024 3:29pm 15.4 % Below low normal 20-50 [facility] [id number] [address] [facility] [address] Transfer rin November 18, 2024 2:23pm November 18, 2024 3:29pm 297 mg/dL 203-362 [facility] [id number] [address] [facility] [address] Ferritin November 18, 2024 2:23pm November 18, 2024 3:51pm 235.3 ng/mL 11.0-306.8 [facility] [id number] [address] [facility] [address] Vitamin B12 Level November 18, 2024 2:23pm November 18, 2024 3:54pm 934 pg/mL Above high normal 180-914 [facility] [id number] [address] [facility] [address] Folate November 18, 2024 2:23pm November 18, 2024 3:54pm 9.8 ng/mL >5.9 Folate reference range: >5.9 ng/mlThe WHO technical consultatio n on folate and vitamin k91kuhmtthn cies has determined that folate concentrati ons lessthan 4 ng/ml are considered deficient. [facility] [id number] [address] [facility] [address] [place] xy Vitamin D Total November 18, 2024 2:23pm November 18, 2024 3:58pm 23.9 ng/mL Below low normal 30-100 VITAMIN D STATUS 25(OH)VITAM IN D RANGE (ng/mL) Deficient <20 Insufficien t 20 to <30Sufficie nt 30 to 100Referenc e: Karen KIRBY,Nicole SCOTT, Erich cervantes LI, et al. Evaluation, treatment, and prevention of vitamin D deficiency; an Endocrine Society clinical practice guideline. JCEM. 2010; 96(7):1911- 30. [facility] [id number] [address] [facility] [address] Parathyr oid Hormone (Intact) November 18, 2024 2:23pm November 18, 2024 3:47pm 25.6 pg/mL 12-88 [facility] [id number] [address] [place], [place] [address] Pharmacy Creatini ne Clearanc e (Chem November 18, 2024 2:23pm November 18, 2024 3:29pm N/A [facility] [id number] [address] [place] [address] Urine Microalb umin mg/dl November 18, 2024 2:24pm November 18, 2024 3:34pm 2.2 mg/dL Above high normal 0.0-1.8 [facility] [id number] [address] [place] [address] Urine Random Creatini ne November 18, 2024 2:24pm November 18, 2024 3:34pm 270.00 mg/dL No reference range established [facility] [id number] [address] [place], [place] [address] Urine Microalb umin/Cre atinine Ratio November 18, 2024 2:24pm November 18, 2024 3:34pm 8.1 mg/g 0.0-30.0 30-300 mg/g indicates an increased risk for diabetic nephropathy . Greater than 300 mg/g is consistent with clinical nephropathy . (Am. J. Kidney Disease 1994, 25:107) [facility] [id number] [address] [facility] [address] Urine Random Total Protein November 18, 2024 2:24pm November 18, 2024 3:34pm 23 mg/dL Above high normal 0-9 [facility] [id number] [address] [place] [address] Urine Protein/ Creatini ne Ratio November 18, 2024 2:24pm November 18, 2024 3:34pm 85 mg/g{Cre} 0-200 [facility] [id number] [address] [place], [place] [id number] Vital Signs Vital Reading Result Reference Range Collection Date/Time Height 64 [in_i] November 26 9:39am Weight 105.23 kg November 26 9:39am Heart Rate 61 /min 60-100 November 26 9:39am Respiratory rate 16 /min 12-24 November 9:39am Oxygen saturation by Pulse oximetry 98 % 95-100 November 26, 2024 9: 39am BP Systolic 118 mm[Hg] 100-140 November 26 9:39am BP Diastolic 75 mm[Hg] 60-100 November 26 9:39am BMI (Body Mass Index) 39.8 kg/m2 November 26, 2024 9:39am Advance Directives Advance Directive Response Recorded Date/ Time Advance Directives No March 19, 2018 5:43pm Insurance Providers Guarantor Sherly Patel [place] Address [address] [facility] [address] Contact Info. Home Phone: Payer Policy Id Subscriber's Name Subscriber Id Effectiv e Date Expiration Date Marshall BATISTA/LURDES [id number] Sherly Patel [place] [id number] Encounters Encounter Location(s) Arrival/Admit Date Discharge/Depart Date Provider(s) Registered Recurring -[facility] November 06, 2024 9:16am Valdemar Alonso MD Departed Clinical -Lab [facility] November 18, 2024 2:12pm November 18, 2024 2:13pm Halle Mac MD Departed Physician/Provi harper Office Visit -[facility] November 26, 2024 9:38am November 26, 2024 9:55am Halle Mac MD Recent Diagnosis Onset Date Admit Date 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 Unknown November 26, 2024 9:38am Hyperkalemia Unknown November 26 9:38am Hyperuricemia Unknown November 26 9:38am Hypomagnesemia Unknown November 26 9:38am Iron deficiency Unknown November 26 9:38am Localized edema Unknown November 26 9:38am Morbid obesity Unknown November 26 9:38am Stage 3b chronic kidney disease Unknown November 26, 2024 9:38am Vitamin B12 deficiency Unknown November 262024 9:38am Vitamin D deficiency Unknown November 9:38am Hypertensive nephropathy Unknown November 26, 2024 9:38am Assessments Diagnosis Onset Date Resolution Status Admit Date 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 acute Au brenna 2024 9:38am Hyperkalemia acute November 26, 2024 9:38am Hyperuricemia acute November 9:38am Hypomagnesemia acute November 9:38am Iron deficiency acute November 262024 9:38am Localized edema acute November 262024 9:38am Morbid obesity acute November 9:38am Stage 3b chronic kidney disease acut e November 26, 2024 9:38am Vitamin B12 deficiency acute [place] 2024 9:38am Vitamin D deficiency acute Augu st 2024 9:38am Hypertensive nephropathy resolved November 26, 2024 9:38am Plan of Treatment Author [facility] Authored November 26, 2024 9: 47am 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 Serum creatinine fluctuate depending on volume and blood pressure. Baseline creatinine seems around 1.2-1.7 deciliter.kidney function is at baseline this visit. UA showed no proteinuria and no hematuria. Patient has normal protein Will keep same dose of Entresto I advised the patient to Keep hemoglobin A1c less than 7% to preserve kidney function. I asked the patient to avoid NSAIDs for pain control.will follow-up with the patient in 6 months Follows with her PCP for diabetes control. Patient on oral medications pioglitazone and weekly injection Mounjaro. I explained the patient the necessity of controlling diabetes to preserve kidney function Currently on Norvasc, Toprol. ISMN Entresto and Lasix. Will continue same doses . I asked the patient to monitor blood pressure at home and to follow low-salt diet. Patient is currently taking Lasix 20 mg Po once daily.Edema seems well controlled. Advised the patient to follow low-salt diet and to weigh herself every day. Encouraged weight loss for better control of blood pressure, diabetes and to attenuate CKD progression.Pt is losing weight with Mounjaro Hemoglobin > 10 g/dL. I asked the patient to resume Iron supplement Iron Sat lower at 15% she is on daily supplement .25 OH VD is 25%. continue supplement Patient is vitamin B12 supplement . VB12 950 Will continue VB12 every other day. No repeated Vitamin B12 level at this visit On Mg supplement. Mg level was WNL Uric acid level remains < 7.0. Advised to continue low animal protein diet. No gout attack. resolved with lower Entresto dose. Will recheck potassium level next visit. Future Tests Future scheduled test information is unavailable Pending Tests Test Name Ordered Date Scheduled Date Renal Function Panel November 26, 2024 9:52am 6 Months Future Visits Future appointment information is unavailable Referrals to Other Providers Referral information is unavailable Future Procedures Procedure Name Ordered Date Scheduled Date Hemogram CBC Without Diff November 26, 2024 9:52 am 6 Months Iron and TIBC Profile November 26, 2024 9:52am 6 Months Ferritin November 26, 2024 9:52am 6 Month s Magnesium November 26, 2024 9:52am 6 Month s Protein Creat Ratio Ur Random November 26, 2024 9:52am 6 Months Parathyroid Hormone Intact November 26, 2024 9:5 2am 6 Months Uric Acid November 26, 2024 9:52am 6 Month s Vit. B12/Folate Profile November 26, 2024 9:52am 6 Months Vitamin D 25 Hydroxy Total November 26, 2024 9:5 2am 6 Months Future Medications Future medication information is unavailable Patient Instructions Patient instructions are unavailable
--- OUTSIDE RECORDS SUMMARY | 2024-12-02 05:00 | XMS_ITS | Continuity of Care Document ---
Author Organization [facility] Address [address] [place] [address] Phone Care Team Providers Care Scheduling Representative Name Role Phone Nicola MARKJoshua Unavailable Unavailable Allergies, Adverse Reactions, Alerts Substance Reaction Status Criticality prochlorperazine Active No Informat ion Sulfa (Sulfonamide Antibiotics) HivesHives Active No Information Penicillins Active No Information Medications Medication Instructions Dosage Effective Dates (start - stop) Status Comments ibuprofen 800 mg tablet take 1 tablet by oral route 3 times every day with food as needed 800 MG - Active oxycodone 5 mg capsule take 1 capsule by oral route every 6 hours as needed for pain 5 MG - Active benztropine 0.5 mg tablet take 1 tablet by oral route 2 times every day 0.5 MG - Active Vraylar 6 mg capsule take 1 capsule by oral route every day 6 MG - Active cetirizine 10 mg tablet take 1 tablet by oral route every day 10 MG - Active cholecalciferol (vitamin D3) 125 mcg (5,000 unit) tablet - Active cyanocobalamin (vitamin B-12) 2,500 mcg tablet - Active fluoxetine 10 mg capsule take 1 capsule by oral route every day 10 MG - Active fluoxetine 40 mg capsule take 1 capsule by oral route every day in the morning 40 MG - Active fluticasone propionate 50 mcg/actuation nasal spray,suspension spray 1 - 2 spray by intranasal route every day in each nostril as needed 50-100 MCG - Active metoprolol succinate ER 25 mg tablet,extended release 24 hr take 1 tablet by oral route every day 25 MG - Active nitroglycerin 0.[address] 1 tablet by sublingual route at 1st sign of attack; may repeat every 5 minutes up to 3 tabs; if norelief seek medical help 0.4 MG - Active sennosides 8.6 mg-docusate sodium 50 mg tablet take 2 tablet by oral route every day 2.00 tablet - Active Mounjaro 7.5 mg/0.5 mL subcutaneous pen injector inject (7.5MG) by subcutaneous route every week 7.5 MG - Active Prozac 10 mg capsule take 1 capsule by oral route every day - Active amlodipine 10 mg tablet take 1 tablet by oral route every day 10 MG - Active aripiprazole 10 mg tablet take 1 tablet by oral route every day 10 MG - Active aspirin 81 mg chewable tablet chew 1 tablet by oral route every day 81 MG - Active atorvastatin 80 mg tablet take 1 tablet by oral route every day 80 MG - Active buspirone 30 mg tablet take 1 tablet by oral route 2 times every day 30 MG - Active Vraylar 6 mg capsule take 1 capsule by oral route every day 6 MG - Active fenofibrate nanocrystallized 145 mg tablet take 1 tablet by oral route every day 145 MG - Active furosemide 20 mg tablet take 1 tablet by oral route every day 20 MG - Active gabapentin 600 mg tablet take 1 tablet by oral route 3 times every day 600 MG - Active isosorbide mononitrate ER 30 mg tablet,extended release 24 hr take 1 tablet by oral route every day in the morning 30 MG - Active lamotrigine 200 mg tablet take 1 tablet by oral route 2 times every day 200 MG - Active lamotrigine 25 mg tablet take 2 tablet by oral route 2 times every day 50 MG - Active Kapspargo Sprinkle 25 mg capsule,extended release take 1 capsule by oral route every day 25 MG - Active oxycodone 5 mg capsule take 1 capsule by oral route every 6 hours as needed for pain 5 MG - Active pioglitazone 45 mg tablet take 1 tablet by oral route every day 45 MG - Active Entresto 49 mg-51 mg tablet take 1 tablet by oral route 2 times every day 1.00 tablet - Active spironolactone 25 mg tablet take 1 tablet by oral route every day 25 MG - Active tizanidine 4 mg tablet take 1 tablet by oral route every 6 - 8 hours as needed not to exceed 3 doses in 24 hours 4 MG - Active Slow Release Iron 143 mg (45 mg iron) tablet,extended release - Active gabapentin 600 mg tablet take 1 tablet by oral route 3 times every day 600 MG - No Longer Active Entresto 49 mg-51 mg tablet take 1 tablet by oral route 2 times every day 1.00 tablet - No Longer Active [facility] 10 mg disintegrating tablet - No Longer Active Procedures Procedure Date Periodic Oral Eval Estab Patient 2024 Extract; Erupted Th/exposted Rt 025 Bitewings Four Films Intraoral-periapical 1st Film Hwxmehpnc-vzxvjvfwan-geut Additional Nov Dhstrrxmq-gthxmzfuyi-qvvw Additional Nov Hgkgsbyxu-wquuizgfcb-ogil Additional Nov Oral Hygiene Instruction Intraoral-periapical 1st Film 4 Bitewig-single Film Oral Hygiene Instruction Limited Oral Eval Nutrit Couns For Control Of [place] Dis Apr Extract; Erupted Th/exposted Rt 024 Intraoral-complete Series (bw) 24 Comp Oral Eval New/estab Patient 2023 Oral Hygiene Instruction OFFICE/OUTPATIENT VISIT, NEW Contraceptive pills for bc Advance Directives Directive Yes / No Effective Date File Name No Information Encounters Encounter Description Practice Location Reason(s) For Visit Diagnoses Date Provider Providers Copied on Encounter [facility], [address] [place] [address], [id number], tel:[phone] Dental Clinic Periodic exam (chief complaint) Body mass index [BMI] 39.0-39.9, adultEncounter for screening for dental disordersDental caries, unspecified 5 Nicola Lewis. [address] [place] [address], [id number], [place]. tel:[phone] [facility], [address] [place] [address], [id number], tel:[phone] Dental Clinic ER (chief complaint) Encounter for screening for dental disorders 4 Nicola MARK Joshua. [address] [place], [place], [id number], [place]. tel:[phone] [facility], [address] [place] [address], [id number], tel:[phone] Dental Clinic ext (chief complaint) Body mass index [BMI] 50.0-59.9, adultEncounter for screening for dental disorders 4 [facility] [address] [place], [address], [place]. tel:[phone] [facility], [address] [place] [address], [id number], tel:[phone] Dental Clinic dn (chief complaint) Encounter for screening for dental disorders 4 [facility] [address] [place] [address], [id number], [place]. tel:[phone] OFFICE/OUTPAT IENT VISIT, [facility], [address] [place] [address], [id number], [place] tel:[phone] [facility] No Information 9 Eliza Scott. [address] [place] [address], [id number]. tel:[phone] Family History Family Member Type Diagnosis Age At Onset Father Problem (finding) Mother Problem (finding) Payers Payer name Insurance type Covered republican ID Rafy burnham(s) [facility] [place] [id number] Social History Type Description Quantity Date Captured Comments Alcohol Use Details Unknown Caffeine Use Details Unknown Tobacco Use Status Current non-smoker Smoking Status Never smoker Non-Smoking Tobacco Use Details : No Details Available : No Details Available Sex Female Sexual Orientation Straight or heterosexual Gender Identity Female Vital Signs Date / Time: Height Weight BMI Pulse Rate Blood Pressure Temperature Respiratory Rate Body Surface Area Head Circumference Head Circ. Percentile Wt./Payam. Percentile BMI percentile Pulse Ox Inhaled Ox 9:25 AM 64.00 in 104.326 kg (230.00 lbs) 39.4 8 kg/m eter (2) 53 /min 148/84 mm[Hg] 97.70 F 2.17 meter(2) Chief Complaint And Reason For Visit From encounter dated '12/02/2024 09:00'. Periodic exam (chief complaint). Description: periodic exam Reason For Referral Reason For Referral No Information Plan Of Treatment Date Type Action Status Goal Hep A. Due on du e Goal HPV. Due on due Goal Hepatitis C screening. Due o n due Goal Tdap. Due on due Goal Depression screening. Due on due Goal FOBT. Due on due Goal Unhealthy drug use screening . Due on due Goal Colonoscopy. Due on due Goal CT-Colonography. Due on due Goal Tdap Vaccine. Due on 2024 due Goal Influenza vaccine. Due on Au due Goal FIT. Due on due Goal Mammogram. Due on due Goal FIT-DNA. Due on due Goal PRAPARE ASSESSMENT. Due on A due Goal Zoster vaccine (). Due on due Goal Lipid panel. Due on due Goal Dietary manageme nt education, guidance, and counseling completed Goal FOBT. Due on due Goal Zoster vaccine (1st). Due on due Goal FIT. Due on due Goal Lipid panel. Due on due Goal Influenza vaccine. Due on due Goal Tdap. Due on due Goal PRAPARE ASSESSMENT. Due on due Goal CT-Colonography. Due on due Goal Colonoscopy. Due on due Goal Mammogram. Due on due Goal Hepatitis C screening. Due o n due Goal Depression screening. Due on due Goal FIT-DNA. Due on due Goal Tdap Vaccine. Due on 2023 due Goal Unhealthy drug use screening . Due on due Goal HPV. Due on due Goal HPV. Due on due Goal Tdap. Due on due Goal Zoster vaccine (). Due on due Goal FIT. Due on due Goal Tdap Vaccine. Due on 2023 due Goal Lipid panel. Due on due Goal Hepatitis C screening. Due o n due Goal Depression screening. Due on due Goal Colonoscopy. Due on due Goal Hep A. Due on du e Goal FOBT. Due on due Goal Mammogram. Due on due Goal Influenza vaccine. Due on due Goal FIT-DNA. Due on due Goal CT-Colonography. Due on due Goal PRAPARE ASSESSMENT. Due on due Goal Unhealthy drug use screening . Due on due Goal Dietary manageme nt education, guidance, and counseling completed Goal Tdap Vaccine. Due on 2023 due Goal Zoster vaccine (). Due on due Goal FOBT. Due on due Goal Unhealthy drug use screening . Due on due Goal Influenza vaccine. Due on due Goal CT-Colonography. Due on due Goal Mammogram. Due on due Goal FIT. Due on due Goal Lipid panel. Due on due Goal FIT-DNA. Due on due Goal Tdap. Due on due Goal HPV. Due on due Goal Hepatitis C screening. Due o n due Goal Depression screening. Due on due Goal Hep A. Due on du e Goal Colonoscopy. Due on due Goal PRAPARE ASSESSMENT. Due on due Appointment SahraSherly blank BOOKED Appointment Sahra, Sherly BOOKED History Of Present Illness Encounter Date Complaint History Of Prese nt Illness Periodic exam periodic exam ER ER ext ext dn dn Functional Status Date Functional Assessmen t No Information Instructions Date Instruction Additional Infor mation Dietary management e ducation, guidance, and counseling Related to Body mass index [BMI] 39.0-39.9, adult Giving encouragement to exercise Related to Body mass index [BMI] 50.0-59.9, adult Dietary management e ducation, guidance, and counseling Related to Body mass index [BMI] 50.0-59.9, adult Assessments Type Assessment Date assessment Body mass index [BMI] 39.0-39.9, adult Patient Care Teams Name Effective Dates (start - stop) Status Members No Information
--- OUTSIDE RECORDS SUMMARY | 2024-12-06 10:27 | XMS_ITS | Encounter Summary ---
Author Organization [facility] Address [address] [place] [address] Care Team Providers Care Tobacco Drummer Name Role Phone Markel Braxton MD Primary Care Provider [phone] Janene Lew NP Unavailable [phone] Encounter Details Date Type Department Care [...] week 05/02/2023 How often do you attend jewish or synagogue serv ices? Never 05/02/2023 Do you belong to any clubs o r organizations such as jewish groups, unions, fraternal or athletic groups, or [...] Recorded Patient Health Questionnaire-2 Score 4 05/03/2023 [facility] - Occupational Stress [...] place to sleep or slept in a correction (including now)? Yes 05/02/2023 Comments Unknown Sex and Gender Information Value Date Recorded Sex Assigned at Not on file Legal Sex Female 7:05 PM EDT Gender Identity Not on file Sexual Orientation Not on file documented as of this encounter Plan of Treatment Upcoming Encounters Date Type Department Care Team (Late st Contact Info) Description 12/16/2024 8:30 AM EDT Office Visit [facility] [address] [place] [address] Janene Lew NP [address] [place] [address] 05/05/2025 10:15 AM EST Office Visit [facility] [address] [place] [id number] Marya Loya DO [address] [place] [address] documented as of this encounter Procedures Procedure Name Priority Date/Time Associated Diagnosis Comments CA ECHO DOPPLER COMPLETE 05/10/2023 2:37 PM EST documented in this encounter Results * CA ECHO DOPPLER COMPLETE (05/10/2023 2:37 PM EST) Anatomical Region Laterality Modality Other 05/10/2023 2:37 PM EST Narrative 05/10/2023 2:39 PM EST The [address] [address] Cardiology Report Signed Patient: SHARLENE HUMPHREYS MR#: [id number] : 1970 Acct:[id number] Age/Sex: 52 / F ADM Date: 05/10/23 Loc: CARD Attending Dr: Radu Arias NP Ordering Physician: Radu Arias NP Date of Service: 05/10/23 Procedure(s): CA echo doppler complete Accession Number(s): [id number] cc: Janene Lew NP; Radu Arias NP Patient Name: SHARLENE HUMPHREYS MR#: [id number] : 1970 Exam Date: 05/10/2023 Ordering Doctor: Gerardo ARIAS NP ECHOCARDIOGRAM REPORT PROCEDURE: CA ECHO [...] Signed By: 05/10/23 1439 DD/ 1437 TD/TT: Architectural Inspector: Procedure Note Radiology, Radiologist, MD - 05/10/2023 [place] [address] Cardiology Report Signed Patient: SHARLENE HUMPHREYS AMR#: [id number] : 1970Acct:[id number] Age/Sex: 52 / FADM Date: 05/10/23 Loc: CARD Attending Dr: Radu Arias NP Ordering Physician: Radu Arias NP Date of Service: 05/10/23 Procedure(s): CA echo doppler complete Accession Number(s): [id number] cc: Janene Lew NP; Radu Arias NP Patient Name: SHARLENE HUMPHREYS MR#: [id number] : 1970 Exam Date: 05/10/2023 Ordering Doctor: [...] M.D. Signed By:05/10/23 1439 DD/ 1437 TD/TT: Architectural Inspector: us Generic External Data Provider [facility] Final Result documented in this encounter Visit Diagnoses Not on filedocumented in this encounter Additional Health Concerns Assessment Noted Time PHQ-9 Depression Total Score: 16 024 1:18 PM EST documented as of this encounter Care Teams Tobacco Drummer Relationship Specialty Start Date End Date Markel Braxton MD [address] [place] [address] PCP - General Family Medicine 05/03/23 Janene Lew NP [address] [place] [address] PCP - [employer] [place] 09/15/23 documented as of this encounter
--- OUTSIDE RECORDS SUMMARY | 2024-12-06 10:27 | XMS_ITS | Encounter Summary ---
Author Organization [facility] Address [address] [facility] [place] [address] Care Team Providers Care Infrastructure Tech Name Role Phone Markel Braxton MD Primary Care Provider Reason for Visit * Reason Comments Med Refill Encounter Details Date Type Department Care Team (Late st Contact Info) Description 11/28/2024 [facility]ill [facility] [address] [facility] 230 [place] [address] Marya Loya, [address] [facility] [address] [place] [address] Type 2 diabetes mellitus with other circulatory complications (HCC) Social History Tobacco Use Types Packs/Day Years Used Date Smoking Tobacco: Never Passive Smoke Exposure: Never Smokeless Tobacco: Never Alcohol Use Standard Drinks/Week Comments Never 0 (1 standard drink = 0.6 oz pur e alcohol) caffeine: coffee, soda/pop B1300 Health Literacy Answer Date Recor ded How often do you need to hav e someone help you when you read instructions, pamphlets, or other written material from your doctor or pharmacy? Never 11/18/2024 Humiliation, Afraid, Rape, and Kick questionnair e Answer Date Recorded Within the last year, have y ou been afraid of your partner or ex-partner? No 11/18/2024 Within the last year, have y ou been humiliated or emotionally abused in other ways by your partner or ex-partner? No Within the last year, have y ou been kicked, hit, slapped, or otherwise physically hurt by your partner or ex-partner? No 11/18/2024 Within the last year, have y ou been raped or forced to have any kind of sexual activity by your partner or ex-partner? No 11/18/2024 Social Connection and Isolat ion Panel [NHANES] Answer Date Recorded In a typical week, how many times do you talk on the phone with family, friends, or neighbors? More than three times a week 11/18/2024 How often do you get togethe r with friends or relatives? Once a week 11/18/2024 How often do you attend chur or roman catholic services? Never 11/18/2024 Do you belong to any clubs o r organizations such as episcopalian groups, unions, fraternal or athletic groups, or school groups? No 11/18/2024 How often do you attend meet ings of the clubs or organizations you belong to? Never 11/18/2024 Are you , , di vorced, , never , or living with a partner? Never 11/18/2024 AUDIT-C Answer Date Recorded Q1: How often do you have a drink containing alcohol? Never 11/18/2024 Q2: How many drinks containi ng alcohol do you have on a typical day when you are drinking? Patient does not drink Q3: How often do you have si x or more drinks on one occasion? Never 11/18/2024 Overall Financial Resource Strain (CARDIA) Answe r Date Recorded How hard is it for you to pa y for the very basics like food, housing, medical care, and heating? Hard 11/18/2024 PHQ-2 Answer Date Recorded Patient Health Questionnaire-2 Score 0 11/03/2024 [facility] - Occupational Stress Questionnaire Answer Date Recorded Do you feel stress - tense, restless, nervous, or anxious, or unable to sleep at night because your mind is troubled all the time - these days? To some extent 11/18/2024 Exercise Vital Sign Answer Date Recorde d On average, how many days pe r week do you engage in moderate to strenuous exercise (like a brisk walk)? 0 days 11/18/2024 On average, how many minutes do you engage in exercise at this level? 0 min 11/18/2024 Hunger Vital Sign Answer Date Recorded Within the past 12 months, y ou worried that your food would run out before you got the money to buy more. Often true 11/19/19 25 Within the past 12 months, t he food you bought just didn't last and you didn't have money to get more. Often true 11/18/2024 PRAPARE - Transportation Answer Date Re corded In the past 12 months, has l ack of transportation kept you from medical appointments or from getting medications? No 08/2024 In the past 12 months, has l ack of transportation kept you from meetings, work, or from getting things needed for daily living? No 11/18/2024 Housing Stability Vital Sign Answer Mitchell e [...] place to sleep or slept in a assisted (including now)? Yes 05/02/2023 Housing Stability Vital Sign Answer Mitchell e Recorded In the last 12 months, was t here a time when you were not able to pay the mortgage or rent on time? No 11/18/2024 In the past 12 months, how m any times have you moved where you were living? 0 11/18/2024 At any time in the past 12 m [place], were you homeless or living in a assisted (including now)? No 11/18/2024 Comments Unknown Sex and Gender Information Value Date Recorded Sex Assigned at Not on file Legal Sex Female 7:05 PM EDT Gender Identity Not on file Sexual Orientation Not on file documented as of this encounter Miscellaneous Notes * Telephone Encounter - Suzanna Porter LPN - 11/28/2024 10:01 AM EDT RX sent documented in this encounter Plan of Treatment Upcoming Encounters Date Type Department Care Team (Late st Contact Info) Description 12/16/2024 8:30 AM EDT Office Visit [facility] [address] [place] [address] Janene Lew NP [address] [place] [address] 05/05/2025 10:15 AM EST Office Visit [facility] [address] [place] [address] Marya Loya DO [address] [place] [address] documented as of this encounter Visit Diagnoses Diagnosis Type 2 diabetes mellitus with other circulatory complications (HCC) documented in this encounter Additional Health Concerns Assessment Noted Time PHQ-9 Depression Total Score: 16 024 1:18 PM EST documented as of this encounter Care Teams Infrastructure Tech Relationship Specialty Start Date End Date Markel Braxton MD [address] [place] [address] PCP - General Family Medicine 05/03/23 documented as of this encounter
--- OUTSIDE RECORDS SUMMARY | 2024-12-06 10:27 | XMS_ITS | Encounter Summary ---
Author Organization [facility] Address [address] [place] [address] Care Team Providers Care Interactive Producer Name Role Phone Markel Braxton MD Primary Care Provider [phone] Encounter Details Date Type Department Care Team (Late st Contact Info) Description 11/25/2024 [facility] [address] [place] [address] Janene Lew NP [address] [place] [address] Social History Tobacco Use Types Packs/Day Years [...] How often do you attend chur or jain services? Never 11/18/2024 Do you belong to any clubs o r organizations such as mu-ism groups, unions, fraternal or athletic groups, or [...] Recorded Patient Health Questionnaire-2 Score 0 11/03/2024 [facility] Occupational Stress Questionnaire Answer [...] in a mcfp (including now)? Yes 05/02/2023 Housing Stability Vital Sign Answer Mitchell e Recorded In the last 12 months, was t here a time when you were not able to pay the mortgage or rent on time? No 11/18/2024 In the past 12 months, how m any times have you moved where you were living? 0 11/18/2024 At any time in the past 12 m [facility], were you homeless or living in a mcfp (including now)? No 11/18/2024 Comments Unknown Sex and Gender Information Value Date Recorded Sex Assigned at Not on file Legal Sex Female 7:05 PM EDT Gender Identity Not on file Sexual Orientation Not on file documented as of this encounter Plan of Treatment Upcoming Encounters Date Type Department Care Team (Late st Contact Info) Description 12/16/2024 8:30 AM EDT Office Visit [facility] [address] [place] [address] Janene Lew NP [address] [place] [address] 05/05/2025 10:15 AM EST Office Visit [facility] [address] [place] [address] Marya Loya, [address] [place] [address] documented as of this encounter Visit Diagnoses Not on filedocumented in this encounter Additional Health Concerns Assessment Noted Time PHQ-9 Depression Total Score: 16 024 1:18 PM EST documented as of this encounter Care Teams Interactive Producer Relationship Specialty Start Date End Date Markel Braxton MD [address] [place] [address] PCP - General Family Medicine 05/03/23 documented as of this encounter
--- OUTSIDE RECORDS SUMMARY | 2024-12-06 10:27 | XMS_ITS | Encounter Summary ---
Author Organization [facility] Address [address] [place] [address] Care Team Providers Care Ship Fitter Name Role Phone Markel Braxton MD Primary Care Provider [phone] Reason for Visit * Reason Comments Med Refill Encounter Details Date Type Department Care Team (Late st Contact Info) Description 12/06/2024 Refill [facility] [address] [place] [address] Janene Lew, ANNEALING TORCH OPERATOR [address] [place] [address] Restless leg syndrome Social History Tobacco Use Types Packs/Day Years [...] How often do you attend chur or congregational services? Never 11/18/2024 Do you belong to any clubs o r organizations such as mosque groups, unions, fraternal or athletic groups, or [...] Recorded Patient Health Questionnaire-2 Score 0 11/03/2024 [facility] - Occupational [...] in a intermediate (including now)? Yes 05/02/2023 Housing Stability Vital Sign Answer Mitchell e Recorded In the last 12 months, was t here a time when you were not able to pay the mortgage or rent on time? No 11/18/2024 In the past 12 months, how m any times have you moved where you were living? 0 11/18/2024 At any time in the past 12 m [facility], were you homeless or living in a intermediate (including now)? No 11/18/2024 Comments Unknown Sex [...] Visit [facility] [address] [place] [address] Janene Lew NP [address] [place] [address] 05/05/2025 10:15 AM EST Office Visit [facility] [address] [place] [address] Marya Loya DO [address] [place] [address] documented as of this encounter Visit Diagnoses Diagnosis Restless leg syndrome Restless legs syndrome (RLS) documented in this encounter Additional Health Concerns Assessment Noted Time PHQ-9 Depression Total Score: 16 024 1:18 PM EST documented as of this encounter Care Teams Ship Fitter Relationship Specialty Start Date End Date Markel Braxton MD [address] [place] [address] PCP - General Family Medicine 05/03/23 documented as of this encounter
--- OUTSIDE RECORDS SUMMARY | 2024-12-06 10:27 | XMS_ITS | Encounter Summary ---
Author Organization [facility] Address [address] [place] [address] Care Team Providers Care Submarine Advisory Team Watch Officer Name Role Phone Janene Lew MD Primary Care Provider [phone] Reason for Visit * Reason Comments Med Refill Encounter Details Date Type Department Care Team (Late st Contact Info) Description 11/22/2022 Refill [facility] [address] [facility] [place] [address] Tk Godoy MD [address] [place] [address] Hyperlipidemia, unspecified hyperlipidemia type Social History Tobacco [...] Care Team (Late st Contact Info) Description 12/12/2024 8:30 AM EDT Hospital Encounter [facility] Heart [facility] [place] [facility] [address] [place] [phone] Tk Godoy MD [address] [place] [address] Abnormal cardiovascular stress test 12/12/2024 8:30 AM EDT - 12/12/2024 9:30 AM EDT Surgery [facility] [address] [place] [address] Tk Godoy MD [address] [place] [address] Coronary angiography 01/12/2025 10:00 AM EDT Office Visit [facility] [address] [place] [address] Tk Godoy MD [address] [place] [address] documented as of this encounter Visit Diagnoses Diagnosis Hyperlipidemia, unspecified hyperlipidemia type Abnormal cardiovascular stress test- Primary Other nonspecific abnormal cardiovascular system function study Abnormal cardiovascular stress test Other nonspecific abnormal cardiovascular system function study documented in this encounter Care Teams Submarine Advisory Team Watch Officer Relationship Specialty Start Date End Date Janene Lew MD [address] [place] [address] PCP - General 09/26/22 documented as of this encounter
--- OUTSIDE RECORDS SUMMARY | 2024-12-06 10:27 | XMS_ITS | Encounter Summary ---
Author Organization [facility] Address [address] [facility] [place] [address] Care Team Providers Care Cryptologic Support Specialist Name Role Phone Markel Braxton MD Primary Care Provider [phone] Reason for Visit * Reason Comments Med Refill Encounter Details Date Type Department Care Team (Late st Contact Info) Description 11/30/2024 Refill [facility] [address] [facility] 230 [place] [address] Marya Loya, [address] [facility] [address] [place] [address] Type 2 diabetes mellitus without complication, without long-term current use of insulin (HCC) Social History Tobacco Use Types Packs/Day [...] How often do you attend chur or christianity services? Never 11/18/2024 Do you belong to [...] Recorded Patient Health Questionnaire-2 Score 0 11/03/2024 [facility] - [...] any time in the past 12 m [facility], were you homeless or living in a mcfp (including now)? No 11/18/2024 Comments Unknown Sex and Gender Information Value Date Recorded Sex Assigned at Not on file Legal Sex Female 7:05 PM EDT Gender Identity Not on file Sexual Orientation Not on file documented as of this encounter Miscellaneous Notes * Telephone Encounter - Suzanna Porter LPN - 12/01/2024 12:22 PM EDT RX sent documented in this encounter Plan of Treatment Upcoming Encounters Date Type Department Care Team (Late st Contact Info) Description 12/16/2024 8:30 AM EDT Office Visit [facility] [address] [place] [address] Janene Lew NP [address] [place] [address] 05/05/2025 10:15 AM EST Office Visit [facility] [address] [place] [address] Marya Loya DO [address] [place] [address] documented as of this encounter Visit Diagnoses Diagnosis Type 2 diabetes mellitus without complication, without long-term current use of insulin (HCC) documented in this encounter Additional Health Concerns Assessment Noted Time PHQ-9 Depression Total Score: 16 024 1:18 PM EST documented as of this encounter Care Teams Cryptologic Support Specialist Relationship Specialty Start Date End Date Markel Braxton MD [address] [place] [address] PCP - General Family Medicine 05/03/23 documented as of this encounter
--- OUTSIDE RECORDS SUMMARY | 2024-12-06 10:27 | XMS_ITS | Encounter Summary ---
Author Organization [facility] Address [address] [place] [address] Care Team Providers Care Balance Wheel Facer Name Role Phone Janene Lew MD Primary Care Provider [phone] Encounter Details Date Type Department Care Team (Latest Contact Info) Description 12/05/2024 Travel Social History Tobacco Use Types Packs/Day Years Used Date Smoking Tobacco: Never Smokeless Tobacco: Never Alcohol Use Standard Drinks/Week Comments Not Currently 0 (1 standard drink = 0.6 oz pur e alcohol) [place] Safety & Environment Answer Date Rec orded [...] Description 12/12/2024 8:30 AM EDT Hospital Encounter [facility] Vascular Lab [address] [place] [address] Tk Godoy MD [address] [facility] [address] Abnormal cardiovascular stress test 12/12/2024 8:30 AM EDT - 12/12/2024 9:30 AM EDT Surgery [facility] [address] [place] [address] Tk Godoy MD [address] [place] [address] Coronary angiography 01/12/2025 10:00 AM EDT Office Visit [facility] [address] [place] [address] Tk Godoy MD [address] [place] [address] documented as of this encounter Visit Diagnoses Not on filedocumented in this encounter Care Teams Balance Wheel Facer Relationship Specialty Start Date End Date Janene Lew MD [address] [place] [address] PCP - General 09/26/22 documented as of this encounter
--- OUTSIDE RECORDS SUMMARY | 2024-12-06 10:27 | XMS_ITS | Encounter Summary ---
Author Organization [facility] Address [address] [place] [address] Care Team Providers Care Order Manager Name Role Phone Markel Braxton MD Primary Care Provider [phone] Encounter Details Date Type Department Care Team (Late st Contact Info) Description 11/17/2024 [facility] [address] [place] [address] Janene Lew NP [address] [place] [address] Social History Tobacco Use Types Packs/Day Years [...] How often do you attend chur or congregation services? Never 11/18/2024 Do you belong to any clubs o r organizations such as catholic groups, unions, fraternal or athletic groups, or [...] Recorded Patient Health Questionnaire-2 Score 0 11/03/[address] [facility] - Occupational Stress Questionnaire Answer [...] in a fdc (including now)? Yes 05/02/2023 Housing Stability Vital Sign Answer Mitchell e Recorded In the last 12 months, was t here a time when you were not able to pay the mortgage or rent on time? No 11/18/2024 In the past 12 months, how m any times have you moved where you were living? 0 11/18/2024 At any time in the past 12 m [facility], were you homeless or living in a fdc (including now)? No 11/18/2024 Comments Unknown Sex and Gender Information Value Date Recorded Sex Assigned at Not on file Legal Sex Female 7:05 PM EDT Gender Identity Not on file Sexual Orientation Not on file documented as of this encounter Functional Status * Audit-C Score Answer Date of Assessment Author 0 11/18/2024 5:27 PM EDT Ira, Generic * Q1: How often do you have a drink containing alcohol? Answer Date of Assessment Author Never 11/18/2024 5:27 PM EDT Ira, Generic * Q2: How many drinks containing alcohol do you have on a typical day when you are drinking? Answer Date of Assessment Author Patient does not drink 11/18/2024 5:27 PM EDT My chart, Generic * Q3: How often do you have six or more drinks on one occasion? Answer Date of Assessment Author Never 11/18/2024 5:27 PM EDT Mychart, Generic documented as of this encounter Plan of Treatment Upcoming Encounters Date Type Department Care Team (Late st Contact Info) Description 12/16/2024 8:30 AM EDT Office Visit [facility] [address] [place] [address] Janene Lew, ELIER [address] [place] [address] 05/05/2025 10:15 AM EST Office Visit [facility] [address] [place] [address] Marya Loya DO [address] [place] [address] documented as of this encounter Visit Diagnoses Not on filedocumented in this encounter Additional Health Concerns Assessment Noted Time PHQ-9 Depression Total Score: 16 024 1:18 PM EST documented as of this encounter Care Teams Order Manager Relationship Specialty Start Date End Date Markel Braxton MD [address] [place] [address] PCP - General Family Medicine 05/03/23 documented as of this encounter
--- OUTSIDE RECORDS SUMMARY | 2024-12-06 10:27 | XMS_ITS | Encounter Summary ---
Author Organization [facility] Address [address] [place] [address] Care Team Providers Care Drapery Worker Name Role Phone Markel Braxton MD Primary Care Provider [phone] Janene Lew NP Unavailable [phone] Encounter Details Date Type Department Care Team (Late st Contact Info) Description 02/04/2024 Orders Only [facility] [address] [place] [address] Becca Meneses NP [address] [place] [address] Social History Tobacco Use Types [...] week 05/02/2023 How often do you attend christian or islam serv ices? Never 05/02/2023 Do you belong to any clubs o r organizations such as christian groups, unions, fraternal or athletic groups, or [...] Recorded Patient Health Questionnaire-2 Score 0 09/20/2023 [facility] ional Health - Occupational [...] 8:30 AM EDT Office Visit [facility] [address] [place] [address] Janene Lew NP [address] [place] [address] 05/05/2025 10:15 AM EST Office Visit [facility] [address] [place] [address] Marya Loya DO [address] [place] [address] documented as of this encounter Procedures Procedure Name Priority Date/Time Associated Diagnosis Comments MR LUMBAR SPINE WO CONTRAST Routine 02/04/2024 10:55 AM EDT documented in this encounter Results * MR lumbar spine wo contrast (02/04/2024 10:55 AM EDT) Anatomical Region Laterality Modality Spine, L-spine Magnetic Resonan ce Becca Meneses NP IMG MRI PROCEDURES Final Result documented in this encounter Visit Diagnoses Not on filedocumented in this encounter Additional Health Concerns Assessment Noted Time PHQ-9 Depression Total Score: 16 024 1:18 PM EST documented as of this encounter Care Teams Drapery Worker Relationship Specialty Start Date End Date Markel Braxton MD [address] [place] [address] PCP - General Family Medicine 05/03/23 Janene Lew NP [address] [place] [address] PCP - Marshall Jaimes 09/15/23 documented as of this encounter
--- OUTSIDE RECORDS SUMMARY | 2024-12-06 10:27 | XMS_ITS | Encounter Summary ---
Author Organization [facility] Address [address] [place] [address] Care Team Providers Care Repair Mechanic Name Role Phone Markel Braxton MD Primary Care Provider [phone] Reason for Visit * Reason Comments Med Refill Encounter Details Date Type Department Care Team (Late st Contact Info) Description 11/21/2024 Refill [facility] [address] [place] [address] Janene Lew, UNIT AIDE [address] [place] [address] Restless leg syndrome Social History Tobacco Use [...] How often do you attend chur or mandaen services? Never 11/18/2024 Do you belong to any clubs o r organizations such as judaism groups, unions, fraternal or athletic groups, or [...] Recorded Patient Health Questionnaire-2 Score 0 11/03/2024 [facility] Occup[facility] ional Health - Occupational [...] place to sleep or slept in a senior living (including now)? Yes 05/02/2023 Housing Stability Vital Sign Answer Mitchell e Recorded In the last 12 months, was t here a time when you were not able to pay the mortgage or rent on time? No 11/18/2024 In the past 12 months, how m any times have you moved where you were living? 0 11/18/2024 At any time in the past 12 m [facility], were you homeless or living in a senior living (including now)? No 11/18/2024 Comments Unknown Sex [...] Visit [facility] [address] [place] [address] Janene Lew NP [address] [place] [address] 05/05/2025 10:15 AM EST Office Visit [facility] [address] [place] [address] Marya Loya DO [address] [place] [address] documented as of this encounter Visit Diagnoses Diagnosis Restless leg syndrome Restless legs syndrome (RLS) documented in this encounter Additional Health Concerns Assessment Noted Time PHQ-9 Depression Total Score: 16 024 1:18 PM EST documented as of this encounter Care Teams Repair Mechanic Relationship Specialty Start Date End Date Markel Braxton MD [address] [place] [address] PCP - General Family Medicine 05/03/23 documented as of this encounter
--- OUTSIDE RECORDS SUMMARY | 2024-12-06 10:27 | XMS_ITS | Encounter Summary ---
Author Organization [facility] Address [address] [place] [address] Care Team Providers Care Yardage Control Clerk Name Role Phone Markel Braxton MD Primary Care Provider [phone] Encounter Details Date Type Department Care Team (Late st Contact Info) Description 08/28/2024 Orders Only [facility] [address] [place] [phone] Becca Meneses, ELIER [address] [id number] Social History Tobacco Use Types Packs/Day Years [...] week 05/02/2023 How often do you attend catholic or advent serv ices? Never 05/02/2023 Do you belong [...] place to sleep or slept in a nursing home (including now)? Yes 05/02/2023 Comments Unknown [...] EDT Office Visit [facility] [address] [place] [address] Janene Lew NP [address] [place] [address] 05/05/2025 10:15 AM EST Office Visit [facility] [address] [place] [address] Marya Loya DO [address] [place] [address] documented as of this encounter Procedures Procedure Name Priority Date/Time Associated Diagnosis Comments XR HIP 2 OR 3 VW RIGHT Routine 08/28/2024 10:40 AM EDT documented in this encounter Results * XR hip right 2 or 3 views (08/28/2024 10:40 AM EDT) Anatomical Region Laterality Modality Lower Extremities, Hip Right Radiograp hic Imaging us Becca Zaira JACQUARD [employer]OM CAR[employer] WEAVER IMG XR PROCEDURES Final Result documented in this encounter Visit Diagnoses Not on filedocumented in this encounter Additional Health Concerns Assessment Noted Time PHQ-9 Depression Total Score: 16 024 1:18 PM EST documented as of this encounter Care Teams Yardage Control Clerk Relationship Specialty Start Date End Date Markel Braxton MD [address] [place] [address] PCP - General Family Medicine 05/03/23 documented as of this encounter
--- OUTSIDE RECORDS SUMMARY | 2024-12-06 10:27 | XMS_ITS | Encounter Summary ---
Author Organization [facility] Address [address] [place] [address] Care Team Providers Care Rail Operations Controller Name Role Phone Markel Braxton MD Primary Care Provider [phone] Markel Braxton MD Primary Care Provider [phone] Janene Lew EMAIL MARKETING PROCESSOR Unavailable [phone] Encounter Details Date Type Department Care Team (Late st Contact Info) Description 05/01/2023 Abstract [facility] [address] [place] [address] Janene Lew NP [address] [place] [address] Social History Tobacco Use Types Packs/Day Years [...] week 05/02/2023 How often do you attend religious or mandaeism serv ices? Never 05/02/2023 Do you belong to any clubs o r organizations such as religious groups, unions, fraternal or athletic groups, or [...] Recorded Patient Health Questionnaire-2 Score 4 05/03/2023 [facility] - Occupational Stress [...] Office Visit [facility] [address] [place] [address] Janene Lew NP [address] [place] [address] 05/05/2025 10:15 AM EST Office Visit [facility] [address] [place] [address] Marya Loya DO [address] [place] [address] documented as of this encounter Visit Diagnoses Not on filedocumented in this encounter Care Teams Rail Operations Controller Relationship Specialty Start Date End Date Markel Braxton MD PCP - General Family Medicine 10/25/22 05/02/23 Markel Braxton MD [address] [place] [address] PCP - General Family Medicine 05/03/23 Janene Lew NP [address] [place] [address] [facility] 09/15/23 documented as of this encounter
--- OUTSIDE RECORDS SUMMARY | 2024-12-06 10:27 | XMS_ITS | Encounter Summary ---
Author Organization [facility] Address [address] [place] [address] Care Team Providers Care Health Program Manager Name Role Phone Markel Braxton MD Primary Care Provider [phone] Encounter Details Date Type Department Care Team (Late st Contact Info) Description 11/25/2024 Orders Only [facility] [address] [place] [address] Social History Tobacco Use Types Packs/Day Years [...] 11/18/2024 How often do you attend chur ch or mormonism services? Never 11/18/2024 Do you belong to [...] Recorded Patient Health Questionnaire-2 Score 0 11/03/2024 [facility]ational Stress Questionnaire Answer Date [...] place to sleep or slept in a custodial (including now)? Yes 05/02/2023 Housing Stability Vital Sign Answer Mitchell e Recorded In the last 12 months, was t here a time when you were not able to pay the mortgage or rent on time? No 11/18/2024 In the past 12 months, how m any times have you moved where you were living? 0 11/18/2024 At any time in the past [facility], were you homeless or living in a custodial (including now)? No 11/18/2024 Comments Unknown Sex [...] Office Visit [facility] [address] [place] [address] Janene Lew NP [address] [place] [phone] 05/05/2025 10:15 AM EST Office Visit [facility] [address] [place] [phone] Marya Loya, [address] [place] [address] documented as of this encounter Procedures Procedure Name Priority Date/Time Associated Diagnosis Comments XR CHEST 2 VIEWS Routine 11/25/2024 7:52 AM EDT documented in this encounter Results * XR chest 2 views (11/25/2024 7:52 AM EDT) Anatomical Region Laterality Modality Chest Radiographic Rowan ging [facility] IMG XR PROCEDURES Final Result documented in this encounter Visit Diagnoses Not on filedocumented in this encounter Additional Health Concerns Assessment Noted Time PHQ-9 Depression Total Score: 16 024 1:18 PM EST documented as of this encounter Care Teams Health Program Manager Relationship Specialty Start Date End Date Markel Braxton MD [address] [place] [address] PCP - General Family Medicine 05/03/23 documented as of this encounter
--- OUTSIDE RECORDS SUMMARY | 2024-12-06 10:27 | XMS_ITS | Encounter Summary ---
Author Organization [facility] Address [address] [place] [address] Care Team Providers Care Facility Engineer Name Role Phone Markel Braxton MD Primary Care Provider [phone] Encounter Details Date Type Department Care Team (Late st Contact Info) Description 08/28/2024 Abstract [facility] [address] [place] [address] Janene Lew NP [address] [place] [address] Social History Tobacco Use Types Packs/Day Years [...] week 05/02/2023 How often do you attend restorationist or methodist serv ices? Never 05/02/2023 Do you belong to any clubs o r organizations such as restorationist groups, unions, fraternal or athletic groups, or [...] Recorded Patient Health Questionnaire-2 Score 0 06/16/2024 [facility] ional Health - [...] EDT Office Visit [facility] [address] [place] [address] Janene Lew NP [address] [place] [address] 05/05/2025 10:15 AM EST [facility] [place] [facility] [address] [place] [address] Marya Loya DO [address] [place] [address] documented as of this encounter Visit Diagnoses Not on filedocumented in this encounter Additional Health Concerns Assessment Noted Time PHQ-9 Depression Total Score: 16 024 1:18 PM EST documented as of this encounter Care Teams Facility Engineer Relationship Specialty Start Date End Date Markel Braxton MD [address] [place] [address] PCP - General Family Medicine 05/03/23 documented as of this encounter
--- OUTSIDE RECORDS SUMMARY | 2024-12-06 10:27 | XMS_ITS | Encounter Summary ---
Author Organization [facility] Address [address] [place] [address] Care Team Providers Care Supervisor Ticket Sales Name Role Phone Janene Lew MD Primary Care Provider [phone] Reason for Visit * Reason Comments Med Refill Encounter Details Date Type Department Care Team (Late st Contact Info) Description 10/18/2022 Refill [facility] [address] [place], [place] [address], [place] [address] Tk Godoy MD [address] [place] [address] Unstable angina pectoris (CMS/HCC) Social History Tobacco [...] Description 12/12/2024 8:30 AM EDT Hospital Encounter [facility] Heart and Vascular Center Vascular Lab [address] [place] [phone] Tk Godoy MD [address] [facility] [address] Abnormal cardiovascular stress test 12/12/2024 8:30 AM EDT - 12/12/2024 9:30 AM EDT Surgery [facility] Vascular Lab [address] [place] [address] Tk Godoy MD [address] [place] [address] Coronary angiography 01/12/2025 10:00 AM EDT Office Visit [place] [address] [place] [address] Tk Godoy MD [address] [place] [address] documented as of this encounter Visit Diagnoses Diagnosis Unstable angina pectoris (CMS/HCC) Intermediate coronary syndrome Abnormal cardiovascular stress test- Primary Other nonspecific abnormal cardiovascular system function study Abnormal cardiovascular stress test Other nonspecific abnormal cardiovascular system function study documented in this encounter Care Teams Supervisor Ticket Sales Relationship Specialty Start Date End Date Janene Lew MD [address] [place] [address] PCP - General 09/26/22 documented as of this encounter
--- OUTSIDE RECORDS SUMMARY | 2024-12-06 10:27 | XMS_ITS | Encounter Summary ---
Author Organization [facility] Address [address] [place] [address] Care Team Providers Care Margarine Maker Name Role Phone Janene Lew MD Primary Care Provider [phone] Reason for Visit * Reason Comments Med Refill Encounter Details Date Type Department Care Team (Late st Contact Info) Description 11/22/2022 Refill [facility] [address] [place] [address] Radu Arias, AGUSTINA Essential hypertension Social History Tobacco Use Types [...] Description 12/12/2024 8:30 AM EDT Hospital Encounter [facility] [address] [place] [address] Tk Godoy MD [address] [facility] [place] [address] Abnormal cardiovascular stress test 12/12/2024 8:30 AM EDT - 12/12/2024 9:30 AM EDT Surgery [facility] [place] [facility] [address] [place] [address] Tk Godoy MD [address] [place] [address] Coronary angiography 01/12/2025 10:00 AM EDT Office Visit [facility] [address] [place] [address] Tk Godoy MD [address] [place] [address] documented as of this encounter Visit Diagnoses Diagnosis Essential hypertension Unspecified essential hypertension Abnormal cardiovascular stress test- Primary Other nonspecific abnormal cardiovascular system function study Abnormal cardiovascular stress test Other nonspecific abnormal cardiovascular system function study documented in this encounter Care Teams Margarine Maker Relationship Specialty Start Date End Date Janene Lew MD [address] [place] [address] PCP - General 09/26/22 documented as of this encounter
--- OUTSIDE RECORDS SUMMARY | 2024-12-06 10:27 | XMS_ITS | Encounter Summary ---
Author Organization [facility] Address [address] [place] [address] Care Team Providers Care Gas Pumping Station Helper Name Role Phone Janene Lew MD Primary Care Provider [phone] Reason for Visit * Reason Comments Med Refill Encounter Details Date Type Department Care Team (Late st Contact Info) Description 08/24/[address] [facility] [address] [place], [place] [address] [address] Tk Godoy MD [address] [place] [address] Palpitations; Hyperlipidemia, unspecified hyperlipidemia type Social History [...] Description 12/12/2024 8:30 AM EDT Hospital Encounter [facility] Heart and Vascular Center Vascular Lab [address] [place] [phone] Tk Godoy MD [address] [facility] [address] [place] [address] Abnormal cardiovascular stress test 12/12/2024 8:30 AM EDT - 12/12/2024 9:30 AM EDT Surgery [facility] Vascular Lab [address] [place] [address] Tk Godoy MD [address] [place] [address] Coronary angiography 01/12/2025 10:00 AM EDT Office Visit [facility] [address] [place] [address] Tk Godoy MD [address] [place] [address] documented as of this encounter Visit Diagnoses Diagnosis Palpitations Hyperlipidemia, unspecified hyperlipidemia type Abnormal cardiovascular stress test- Primary Other nonspecific abnormal cardiovascular system function study Abnormal cardiovascular stress test Other nonspecific abnormal cardiovascular system function study documented in this encounter Care Teams Gas Pumping Station Helper Relationship Specialty Start Date End Date Janene Lew MD [address] [place] [address] PCP - General 09/26/22 documented as of this encounter
--- OUTSIDE RECORDS SUMMARY | 2024-12-06 10:27 | XMS_ITS | Clinical Summary ---
Author Organization [facility] Address [address] [place] [address] Care Team Providers Care Box Lining Machine Operator Name Role Phone Janene Lew MD Primary Care Provider [phone] Allergies Active Allergy Reactions Criticality Noted Date Comments Cephalexin Other,Rash High 06/27/2013 Doxycycline Calcium Other 06/27/2013 Empagliflozin 09/29/2022 Esomeprazole Magnesium Other 06/22/2016 Omeprazole Nausea Only 06/22/2016 Pantoprazole Nausea Only 06/22/2016 Penicillins Other,Rash High 06/27/2013 Phenergan Plain High 09/17/2015 seizures Prochlorperazine Other High 06/27/2013 seizures Promethazine Other 06/27/2013 Sulfamethoxazole Other,Rash High 06/27/2013 Sulfamethoxazole-Trimethoprim Other,Rash Low 2013 Zolpidem Unknown 10/16/2023 Other Reaction(s): Unknown Reaction Medications aspirin 81 mg chewable tablet CHEW [...] 65 mg by mouth with breakfast. Active spironolactone (Aldactone) 25 mg tabletIndications: Essential hypertension,Chron ic diastolic heart failure (CMS/HCC) Take 1 tablet (25 mg) by mouth in the morning. 90 tablet 3 02/10/20 23 Active Additional Information Patient not taking.Reported on 10/16/2024 ARIPiprazole (Abilify) 30 mg tablet Take 1 [...] mg SL tabletIndications: Coronary artery disease involving nez perce coronary artery of nez perce heart without angina pectoris Place 1 tablet [...] 90 tablet 3 06/27/19 25 026 Active benztropine (Cogentin) 0.5 mg tablet Take 1 tablet by mouth Twice daily at 6am and 6pm. 10/10/19 25 Active rOPINIRole (Requip) 0.25 mg tablet Take 0.25 mg by mouth at bedtime. 09/10/19 25 Active Mounjaro 7.5 mg/0.5 mL pen injector Inject 7.5 mg as directed 1 (one) time per week. 06/01/19 25 Active sacubitril-valsart an (Entresto) 49-51 mg tabletIndications: Chronic diastolic heart failure (CMS/HCC) Take 1 tablet by mouth two times daily. 180 tablet 3 11/14/19 25 026 Active sacubitril-valsart an (Entresto) 49-51 mg tabletIndications: Chronic diastolic heart failure (CMS/HCC) Take 1 tablet by mouth in the morning and at bedtime. 180 tablet 3 12/01/19 23 025 Discontin ued(Reord er) Active Problems Problem Noted Date Diagnosed Date Abnormal cardiovascular stress test 11/18/2024 Lumbar facet arthropathy 09/03/2024 Acute left ankle pain 07/15/2024 Left lower quadrant abdominal pain 12/05/2023 Overview [...] Plan: Would like a referral to podiatry [facility] if possible Anemia 04/30/2023 Bradycardia 04/30/2023 GERD [...] diastolic heart failure 08/26/2015 Coronary arteriosclerosis in nez perce artery 08/25 Morbid obesity 08/26/2015 03/14/2023 Obstructive [...] Encounters Date Type Department Care Team Description 12/05/2024 Travel 11/18/2024 Telephone [facility] [address] [facility] [place] [address] BertrandLauren MA 11/17/2024 Orders Only [facility] [address] [facility] [place] [address] Provider, MD Wolfgang 11/13/2024 Refill [facility] [address] [facility] [place] [address] Erika Pereyra MA Chronic diastolic heart failure (CMS/HCC) 10/16/2024 9:00 AM EDT Office Visit [facility] [address] [place] [address] Tk Godoy MD Pre-op evaluation (Primary Dx); Coronary artery disease, unspecified vessel or lesion type, unspecified whether angina present, unspecified whether nez perce or transplanted heart; Syncope, unspecified syncope type from Last 3 Months Family History Medical History Relation Name Comments Heart attack Father Cancer Mother Relation Name Status Comments Father Mother Social History Tobacco Use Types Packs/Day Years Used Date Smoking Tobacco: Never Smokeless Tobacco: Never Tobacco Cessation:Counseling Given: No Alcohol Use Standard Drinks/Week Comments Not Currently 0 (1 standard drink = 0.6 oz pur e alcohol) [place] Safety & Environment Answer Date Rec orded [...] Sign Reading Time Taken Comments Blood Pressure 112/75 10/16/2024 8:59 AM EDT Pulse 58 10/16/2024 8:59 AM EDT Temperature - - Respiratory Rate 15 11/13/2023 9:08 AM EDT Oxygen Saturation 95% 10/16/2024 8:59 AM EDT Inhaled Oxygen Concentration - - Weight 107 kg (235 lb) 10/16/2024 8:59 AM EDT Height 162.6 cm (5' 4 ) 10/16/2024 8:59 AM EDT Body Mass Index 40.34 10/16/2024 8:59 AM EDT Plan of Treatment Upcoming Encounters Date Type Department Care Team (Late st Contact Info) Description 12/12/2024 8:30 AM EDT Hospital Encounter [facility] Heart and Vascular Center Vascular Lab [address] [place] [address] Tk Godoy MD [address] [facility] [address] [facility] [place] [address] Abnormal cardiovascular stress test 12/12/2024 8:30 AM EDT - 12/12/2024 9:30 AM EDT Surgery [facility] Heart and Vascular Center Vascular Lab [address] [place] [address] Tk Godoy MD [address] [place] [address] Coronary angiography 01/12/2025 10:00 AM EDT Office Visit [facility] [place] [address] [place] [address] Tk Godoy MD [address] [place] [address] Health Maintenance Due Date Last Done Comments CT Colonography 1970 Diabetes: Hemoglobin A1C 1970 FIT-DNA 1970 FIT 1970 FOBT 1970 Sigmoidoscopy 1970 Diabetes: Retinopathy Screening 1980 Depression Screening 1982 Pap Smear 12/25/1991 Cervical Cancer Screening 2000 HPV/Cotest 2000 Mammogram 2010 COVID-19 Vaccine ( season) 2024 01/24/2024, 02/09/2023, 05/16/2021, Additional history exists Influenza Vaccine (#1) 2024 , 02/09/2023, 12/19/2021, Additional history exists Pneumococcal Vaccine: Pediatrics (0 to 5 Years) and At-Risk Patients (6 to 64 Years) (3 of 3 - PCV20 or PCV21) 03/10/2025 03/10/2020, 02/16/2020, 04/16/2011, Additional history exists Adult Tetanus 12/20/2031 12/19/2021 Colonoscopy 10/31/2033 11/01/2023, 07/29/2013 Colorectal Cancer Screening 10/31/2033 Hepatitis B Vaccines Completed 07/03/2022, 01/20/2022, 12/19/2021 Zoster Vaccines Completed 07/03/2022, 12/19/2021 HIB Vaccines Aged Out No longer eligi [...] on patient's age to complete this topic Procedures Procedure Name Priority Date/Time Associated Diagnosis Comments LEXISCAN STRESS MYOCARDIAL PERFUSION IMAGING Routine 11/13/2024 11:08 AM EDT ECG 12 LEAD UNIT PERFORMED Routine 10/16/2024 9:20 AM EDT Pre-op evaluation from Last 3 Months Results * Lexiscan Stress Myocardial Perfusion Imaging (11/13/2024 11:08 AM EDT) Anatomical Region Laterality Modality Other [facility] Provider CV STRESS PROCEDURES Kanchan l Result * ECG 12 lead unit performed (10/16/2024 9:20 AM EDT) Tk Godoy MD ECG ORDERABLES Final Result from Last 3 Months Insurance [facility] Care Teams Box Lining Machine Operator Relationship Specialty Start Date End Date Janene Lew MD [address] [place] [address] PCP - General 09/26/22
--- OUTSIDE RECORDS SUMMARY | 2024-12-06 10:27 | XMS_ITS | Encounter Summary ---
Author Organization [facility] Address [address] [place] [address] Care Team Providers Care Statement Clerk Name Role Phone Janene Lew MD Primary Care Provider [phone] Reason for Visit * Reason Comments Med Refill Encounter Details Date Type Department Care Team (Late st Contact Info) Description 09/24/2022 Refill [facility] [address] [place] [address] [place] [address] Tk Godoy MD [address] [place] [address] Unstable angina pectoris (CMS/HCC) Social [...] Vascular Center Vascular Lab [address] [place] [phone] Tk Godoy MD [address] [place] [address] Abnormal cardiovascular stress test 12/12/2024 8:30 AM EDT - 12/12/2024 9:30 AM EDT Surgery [facility] Heart and Vascular Center Vascular Lab [address] [place] [address] Tk Godoy MD [address] [place] [address] Coronary angiography 01/12/2025 10:00 AM EDT Office Visit [facility] [address] [place] [address] Tk Godoy MD [address] [place] [address] documented as of this encounter Visit Diagnoses Diagnosis Unstable angina pectoris (CMS/HCC) Intermediate coronary syndrome Abnormal cardiovascular stress test- Primary Other nonspecific abnormal cardiovascular system function study Abnormal cardiovascular stress test Other nonspecific abnormal cardiovascular system function study documented in this encounter Care Teams Statement Clerk Relationship Specialty Start Date End Date Janene Lew MD [address] [place] [address] PCP - General 09/26/22 documented as of this encounter
--- OUTSIDE RECORDS SUMMARY | 2024-12-06 10:27 | XMS_ITS | Encounter Summary ---
Author Organization [facility] Address [address] [place] [address] Care Team Providers Care Manager Of Production Name Role Phone Markel Braxton MD Primary Care Provider [phone] Janene Lew NP Unavailable [phone] Encounter Details Date Type Department Care [...] week 05/02/2023 How often do you attend worship or quaker serv ices? Never 05/02/2023 Do you belong to any clubs o r organizations such as worship groups, unions, fraternal or athletic groups, or [...] Recorded Patient Health Questionnaire-2 Score 0 02/19/2024 [facility] - [facility]ational Stress Questionnaire Answer Date [...] place to sleep or slept in a long term (including now)? Yes 05/02/2023 Comments Unknown Sex [...] Office Visit [facility] [address] [place] [address] Janene Lew NP [address] [place] [address] 05/05/2025 10:15 AM EST Office Visit [facility] [address] [place] [address] Marya Loya DO [address] [place] [address] documented as of this encounter Procedures Procedure Name Priority Date/Time Associated Diagnosis Comments XR LUMBAR SPINE MIN 4V 04/21/2024 6:29 AM EST documented in this encounter Results * XR LUMBAR SPINE MIN 4V (04/21/2024 6:29 AM EST) Anatomical Region Laterality Modality Other 04/21/2024 6:29 AM EST Narrative 04/21/2024 6:32 AM EST The [address] [address] XRay Report Signed Patient: SHARLENE HUMPHREYS MR#: [id number] : 1970 Acct:[id number] Age/Sex: 53 / F ADM Date: 04/18/24 Loc: EC Attending Dr: Kelly Loya M.D. Ordering Physician: Kelly Loya M.D. Date of Service: 04/18/24 Procedure(s): XR lumbar spine min 4V Accession Number(s): [id number] cc: Janene Lew TASTE TESTER; Kelly Loya M.D. The [address] [address] Patient Name: SHARLENE HUMPHREYS MRN: [id number] date: 1970 Sex: F Assigned Patient Location: Current Patient Location: Accession/Order Number: [id number] Exam Date: 04/18/2024 08:38 Report Date: 04/21/2024 [...] M.D. Signed By: 04/21/2432 DD/ 8 TD/TT: Physician Compensation Analyst: Procedure Note Radiology, Radiologist, MD - 04/21/[address] [address] XRay Report Signed Patient: SHARLENE HUMPHREYS AMR#: [id number] : 1970Acct:[id number] Age/Sex: 53 / FADM Date: 04/18/24 Loc: EC Attending Dr: Kelly Loya M.D. Ordering Physician: Kelly Loya M.D. Date of Service: 04/18/24 Procedure(s): XR lumbar spine min 4V Accession Number(s): [id number] cc: Janene Lwe TASTE TESTER; Kelly Loya M.D. [address] [address] Patient Name: SHARLENE HUMPHREYS MRN: [id number] date: 1970 Sex: F Assigned Patient Location: Current Patient Location: Accession/Order Number: [id number] Exam Date: 04/18/2024 08:38 Report Date: 04/21/2024 [...] Hendricks M.D. Signed By:04/21/2432 DD/ 8 TD/TT: Physician Compensation Analyst: us Generic External Data Provider [facility] Final Result documented in this encounter Visit Diagnoses Not on filedocumented in this encounter Additional Health Concerns Assessment Noted Time PHQ-9 Depression Total Score: 16 024 1:18 PM EST documented as of this encounter Care Teams Manager Of Production Relationship Specialty Start Date End Date Markel Braxton MD [address] [place] [address] PCP - General Family Medicine 05/03/23 Janene Lew NP [address] [place] [address] PCP - Marshall Jaimes 09/15/23 documented as of this encounter
--- OUTSIDE RECORDS SUMMARY | 2024-12-06 10:27 | XMS_ITS | Clinical Summary ---
Author Organization [facility] Address [address] [facility] [place] [address] Phone Care Team Providers Care Pumpman Name Role Phone Unavailable Primary Care Provider [...]
--- OUTSIDE RECORDS SUMMARY | 2024-12-06 10:27 | XMS_ITS | Encounter Summary ---
Author Organization [facility] Address [address] [place] [address] Care Team Providers Care Carrier Washer Name Role Phone Janene Lew MD Primary Care Provider [phone] Reason for Visit * Reason Comments Med Refill Encounter Details Date Type Department Care Team (Late st Contact Info) Description 11/22/2022 Refill [facility] [address] [place] [address] Tk Godoy MD [address] [place] [address] Hyperlipidemia, unspecified hyperlipidemia type Social [...] Description 12/12/2024 8:30 AM EDT Hospital Encounter [facility] Heart [facility] [address] [place] [phone] Tk Godoy MD [address] [place] [address] Abnormal cardiovascular stress test 12/12/2024 8:30 AM EDT - 12/12/2024 9:30 AM EDT Surgery [facility] [address] [place] [address] Tk Godoy MD [address] [place] [address] Coronary angiography 01/12/2025 10:00 AM EDT Office Visit [facility] [address] [place] [address] Tk Godoy MD [address] [place] [address] documented as of this encounter Visit Diagnoses Diagnosis Hyperlipidemia, unspecified hyperlipidemia type Abnormal cardiovascular stress test- Primary Other nonspecific abnormal cardiovascular system function study Abnormal cardiovascular stress test Other nonspecific abnormal cardiovascular system function study documented in this encounter Care Teams Carrier Washer Relationship Specialty Start Date End Date Janene Lew MD [address] [place] [address] PCP - General 09/26/22 documented as of this encounter
--- OUTSIDE RECORDS SUMMARY | 2024-12-06 10:28 | XMS_ITS | Clinical Summary ---
Author Organization [employer] [facility] tem Address [id number] [address] [place] [address] Care Team Providers Care Auto Mechanic Supervisor Name Role Phone Markel Braxton MD Primary Care Provider [phone] Allergies Active Allergy Reactions Criticality Noted Date [...] diastolic heart failure 08/26/2015 Coronary arteriosclerosis in [place] artery 08/25 Essential hypertension 08/26/2015 Morbid obesity [...] and TPN lose weight ~ No Galilea Iverson, MELISSA Note: Evaluation of progress towards goal: Pt will follow and tolerate gastric bypass diet to optimize weight loss. Medical Devices Implanted Type Area Field Recruiter Device Identifier Shelf Expiration Date Model / Serial / Lot Rods,Screws Other Implant Neck Cardiac Stent Advance Directives * Full Code (Latest Code Status on File) Date Activated Date Inactivated Comments 12/20/2016 5:14 PM 12/22/2016 7:11 PM Care Teams Auto Mechanic Supervisor Relationship Specialty Start Date End Date Markel Braxton MD PCP - General 06/22/16
--- OUTSIDE RECORDS SUMMARY | 2024-12-06 10:28 | XMS_ITS | Patient Health Record ---
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) Active confirmed Problem 443541795 Lumbar facet arthropathy (M47.816) Active confirmed Problem 02443421 Degeneration of intervertebral disc of lumbar region with discogenic back pain and lower extremity pain (M51.362) Active confirmed Vital Signs Height 5 ft 4 in in 04/18/2024 Weight 250 lbs 04/18/2024 BMI 42.91 04/18/2024 Encounters Encounter Location Date Provider Diagnosis [facility] Office [address] [place] [address] [place] [address] 04/18/2024 Aysha Arreaga Other intervertebral disc displacement, thoracolumbar region M51.25 ; Degeneration of intervertebral disc of lumbar region with discogenic back pain and lower extremity pain M51.362 and Lumbar facet arthropathy M47.816 Assessments Encounter Date Diagnosis (ICD Code) Assessment Notes Treatment Notes Treatment Clinical Notes Section Notes 04/18/2024 Other intervertebral disc displacement, thoracolumbar region (ICD-10 - M51.25) 1. Chronic low back pain 2. T12-L1 HNP 3. Lumbar DDD/FA 04/18/2024 Degeneration of intervertebral disc of lumbar region with discogenic back pain and lower extremity pain (ICD-10 - M51.362) 1. Chronic low back pain 2. T12-L1 HNP 3. Lumbar DDD/FA 04/18/2024 Lumbar facet arthropathy (ICD-10 - M47.816) 1. Chronic low back pain 2. T12-L1 HNP 3. Lumbar DDD/FA 04/18/2024 Other Plan established by Dr. Loya. Patient evaluated by myself and Dr. Loya today. Dr. Loya reviewed patient's MRI results and does not recommend any surgical intervention that he discussed with patient. We discussed with patient that we recommend trying the spinal cord stimulator trial with pain management. We can see the patient back on an as-needed basis. The patient is very much in agreement with the treatment and/or diagnostic plan set forth and all questions were answered to the patient's satisfaction. Thanks once again. If we can be of further service to your patients with disorders of the spine, cervical, thoracic, or lumbar, please do not hesitate to contact Dr. Loya. Best regards, 1. Chronic low back pain 2. T12-L1 HNP 3. Lumbar DDD/FA Plan Of Treatment Pending Test Test Name Order Date Lumbar spine, 4v flex ext - 91912 2024 Insurance Providers Payer Name Payer Address Payer Phone Subscriber Number Group Number Insured Name Patient Relationship to Insured Coverage Start Date Coverage End Date [address] [place] [address] [id number] SHARLENE ANAYA Self - patient is the insured
--- OUTSIDE RECORDS SUMMARY | 2024-12-06 10:28 | XMS_ITS | Encounter Summary ---
Author Organization [facility] Address [address] [place] [address] Care Team Providers Care Online Facilitator Name Role Phone Markel Braxton MD Primary Care Provider [phone] Encounter Details Date Type Department Care Team (Late st Contact Info) Description 10/07/2024 Abstract [facility] [address] [place] [address] Janene Lew NP [address] [place] [phone] Social History Tobacco Use Types Packs/Day Years [...] week 05/02/2023 How often do you attend sikh or orthodoxy serv ices? Never 05/02/2023 Do you belong to any clubs o r organizations such as sikh groups, unions, fraternal or athletic groups, or [...] Recorded Patient Health Questionnaire-2 Score 0 06/16/2024 [facility] - Occupational [...] place to sleep or slept in a residential (including now)? Yes 05/02/2023 Comments Unknown Sex [...] Office Visit [facility] [address] [place] [address] Janene Lew NP [address] [place] [address] 05/05/2025 10:15 AM EST Office Visit [facility] [address] [place] [address] Marya Loya DO [address] [place] [address] documented as of this encounter Visit Diagnoses Not on filedocumented in this encounter Additional Health Concerns Assessment Noted Time PHQ-9 Depression Total Score: 16 024 1:18 PM EST documented as of this encounter Care Teams Online Facilitator Relationship Specialty Start Date End Date Markel Braxton MD [address] [place] [address] PCP - General Family Medicine 05/03/23 documented as of this encounter
--- OUTSIDE RECORDS SUMMARY | 2024-12-06 10:28 | XMS_ITS | Clinical Summary ---
Author Organization [facility] Address [address] [place] [address] Care Team Providers Care Metal Wire Technician Name Role Phone Markel Braxton MD Primary Care Provider [phone] Allergies Active Allergy Reactions Criticality Noted Date Comments Empagliflozin 06/24/2022 jardiance Cephalexin 04/27/2023 Esomeprazole GI intolerance 04/27/2023 Penicillins [...] morning and 1 tablet before bedtime. Active ARIPiprazole (Abilify) 30 MG tablet Take 30 mg by mouth Daily 024 Active fluticasone (Flonase) 50 MCG/ACT nasal sprayIndications: Seasonal allergies Administer 2 sprays into each nostril Daily 16 g 5 024 Active fenofibrate (Tricor) 145 MG tabletIndications :Mixed hyperlipidemia Take 1 tablet (145 mg) by mouth Daily 30 tablet 5 024 Active senna-docusate sodium (Senokot-S) 8.6-50 MG [...] 1 capsule by mouth Daily 024 Active gabapentin (Neurontin) 600 MG tabletIndications :Restless leg syndrome Take 1 tablet (600 mg) by mouth 2 (two) times a day as needed (RLS) 60 tablet 2 025 Active FLUoxetine (PROzac) 40 MG capsule Take 40 mg by mouth Daily 025 Active amLODIPine (Norvasc) 10 MG tabletIndications :Primary hypertension Take 1 tablet (10 mg) by mouth Daily 90 tablet 1 05/21/2 025 Active FLUoxetine (PROzac) 20 MG capsule Take 20 mg by mouth Daily TAKE 1 CAPSULE BY MOUTH ONCE DAILY TAKE WITH 40 MG FOR A TOTAL OF 60 MG DAILY Active glucose blood (True Metrix Blood Glucose Test) test stripIndications: Type 2 diabetes mellitus without complication, without long-term current use of insulin ([facility]) Checking bg levels once a day 100 strip 3 Active Lancets 33G miscIndications:T ype 2 diabetes mellitus without complication, without long-term current use of insulin ([facility]) Checking bg levels once a day 100 each 3 Active tiZANidine (Zanaflex) 4 MG tabletIndications :Muscle spasm Take 1 tablet (4 mg) by mouth every 8 (eight) hours if needed for muscle spasms 90 tablet 1 025 2024 Active rOPINIRole (Requip) 0.25 MG tabletIndications :Restless leg syndrome Take 1 tablet (0.25 mg) by mouth at bedtime 90 tablet 025 2024 Active Tirzepatide (Mounjaro) 7.5 MG/0.5ML solution auto-injectorIndi cations:Type 2 diabetes mellitus with other circulatory complications ([facility]) INJECT 7.5MG SUBCUTANEOUSLY ONCE A WEEK 2 mL 2 Active Blood Glucose Monitoring Suppl (True Metrix Meter) w/Device kitIndications:Ty pe 2 diabetes mellitus without complication, without long-term current use of insulin ([facility]) USE 1 TO CHECK GLUCOSE ONCE DAILY 1 kit Active tiZANidine (Zanaflex) 4 MG tabletIndications :Muscle spasm Take 1 tablet (4 mg) by mouth every 8 (eight) hours if needed for muscle spasms 90 tablet 1 025 2024 Discontinued rOPINIRole (Requip) 0.25 MG tabletIndications :Restless leg syndrome Take 1 tablet (0.25 mg) by mouth at bedtime 30 tablet 2 025 2024 Discontinued Tirzepatide (Mounjaro) 7.5 MG/0.5ML solution auto-injectorIndi cations:Type 2 diabetes mellitus with other circulatory complications (HCC) INJECT 7.5 MG SUBCUTANEOUSLY ONCE A WEEK 2 mL 1 025 2024 Discontinued Blood Glucose Monitoring Suppl (True Metrix Air Glucose Meter) w/Device kitIndications:Ty pe 2 diabetes mellitus without complication, without long-term current use of insulin (HCC) 1 each Daily 1 kit 025 2024 Discontinued Active Problems Problem Noted Date [...] (BMI) of 36.0 to 36.9 in adult 12/05/2023 Assessment & Plan (09/03/2024 [...] EST): Would like a referral to podiatry Srinivas if possible Spinal stenosis of thoracolumbar region 04/30/19 24 Spinal stenosis of lumbar region at multiple [facility] 04/30/2023 Assessment & Plan (03/06/2024 9:57 AM EST): Continues with pain mgmt for oral medications and treatment plan TB pain mgmt, ?? Possible spinal cord stimulator [...] use of insulin 04/30/2023 Assessment & Plan (11/03/2024 1:31 PM EDT): During the appointment today all pertinent [...] loss then will consider increasing her mounjaro. Assessment & Plan (09/03/2024 6:39 AM EDT): [...] carbohydrates, and simple sugars. Nephrology feels that [facility] would be a good choice to trial [...] Encounters Date Type Department Care Team Description 12/06/2024 Refill [facility] [address] [place] [phone] Janene Lew NP Restless leg syndrome 11/30/2024 Refill [facility] [address] [place] [address] Marya Madrid, DO Type 2 diabetes mellitus without complication, without long-term current use of insulin (HCC) 11/28/2024 Refill [facility] [address] [place] [address] Marya Madrid, DO Type 2 diabetes mellitus with other circulatory complications (HCC) 11/25/2024 Abstract [facility] [address] [place] [address] Janene Lew NP 11/25/2024 Orders Only [facility] [address] [place] [address] 11/21/2024 Refill [facility] [address] [place] [address] Janene Lew, ELIER Restless leg syndrome 11/18/2024 Travel 11/17/2024 Clinisync Result Encounter [facility] External Department Unsolicited Provider, Generic External Data 11/17/2024 Abstract [facility] [address] [place] [address] Janene Lew NP 11/11/2024 Refill [facility] [address] [place] [address] Janene Lew, ELIER Muscle spasm 11/03/2024 9:45 AM EDT Office Visit [facility] [address] [facility] [address] [place] [address] Marya Madrid, DO Type 2 diabetes mellitus with other circulatory complications (HCC) (Primary Dx); [...] (BMI) of 36.0 to 36.9 in adult ([facility]) 11/03/2024 Bamboo flowsheet [facility] [address] [place] [address] Marya Madrid, 11/03/2024 Travel 10/28/2024 Travel 10/08/2024 Refill [facility] [address] [place] [address] Marya Madrid, DO Type 2 diabetes mellitus with other circulatory complications ([facility]) 10/07/2024 Clinisync Result Encounter [facility] External Department Unsolicited Provider, Generic External Data 10/07/2024 Abstract [facility] [address] [place] [address] Janene Lew, ELIER 10/07/2024 Abstract [facility] [address] [place] [address] Janene Lew, ELIER 10/07/2024 Clinisync Result Encounter [facility] External Department Unsolicited Provider, Generic External Data 10/07/2024 Clinisync Result Encounter [facility] External Department Unsolicited Provider, Generic External Data 09/09/2024 Refill [facility] [address] [place] [phone] Janene Lew, ELIER Restless leg syndrome from Last 3 Months Immunizations Immunization Administration [...] Bren Hypertension Sister Bren Kidney disease Sister Bren Relation Name Status Comments Brother Mom Alive [...] often do you attend chur ch or yarsanism services? Never 11/18/2024 Do you belong to any clubs o r organizations such as taoist groups, unions, fraternal or athletic groups, or [...] Recorded Patient Health Questionnaire-2 Score 0 11/03/2024 [facility] - [...] medical appointments or from getting medications? No 0808/2024 In the past 12 months, has l [...] in a residential (including now)? Yes 05/02/2023 Housing Stability Vital Sign Answer Mitchell e Recorded In the last 12 months, was t here a time when you were not able to pay the mortgage or rent on time? No 11/18/2024 In the past 12 months, how m any times have you moved where you were living? 0 11/18/2024 At any time in the past 12 m [facility], were you homeless or living in a residential (including now)? No 11/18/2024 Comments Unknown Sex and Gender Information Value Date Recorded Sex Assigned at Not on file Legal Sex Female 7:05 PM EDT Gender Identity Not on file Sexual Orientation Not on file Last Filed Vital Signs Vital Sign Reading Time Taken Comments Blood Pressure 124/78 11/03/2024 9:50 AM EDT Pulse 56 11/03/2024 9:50 AM EDT Temperature 36.7 C (98 F) 11/03/2024 9:50 AM EDT Respiratory Rate 22 09/03/2024 9:40 AM EDT Oxygen Saturation 96% 11/03/2024 9:50 AM EDT Inhaled Oxygen Concentration - - Weight 106 kg (234 lb) 11/03/2024 9:50 AM EDT Height 170.2 cm (5' 7 ) 11/03/2024 9:50 AM EDT Body Mass Index 36.65 11/03/2024 9:50 AM EDT Plan of Treatment Upcoming Encounters Date Type Department Care Team (Late st Contact Info) Description 12/16/2024 8:30 AM EDT Office Visit [facility] [address] [place] [address] Janene Lew, TERRAZZO POLISHER HELPER [address] [place] [address] 05/05/2025 10:15 AM EST Office Visit [facility] [address] [place] [address] Marya Madrid, [address] [place] [address] Health Maintenance Due Date Last Done Comments CT Colonography 1970 FIT-DNA 1970 FIT 1970 FOBT 1970 Sigmoidoscopy 1970 HPV/Cotest 2000 Pap Smear 05/18/2019 05/18/2016 Mammogram 09/27/2024 09/28/2023, 03/29/2022 Influenza Vaccine (#1) 2024 4, 02/09/2023, 12/19/2021, Additional history exists Diabetes: Hemoglobin A1C 02/03/2025 025, 06/16/2024, 02/19/2024, Additional history exists Diabetes: Urine Protein Screening 08/28/2025 025, 05/10/2023 Diabetes: Retinopathy Screening 09/05/2025 4, 11/13/2022 Colonoscopy 10/31/2033 11/01/2023, 10/14, 07/29/2013 Colorectal Cancer Screening 10/31/2033 Cervical Cancer Screening Discontinued Procedures Procedure Name Priority Date/Time Associated Diagnosis Comments XR CHEST 2 VIEWS Routine 11/25/2024 7:52 AM EDT NM MALIK PERF SPECT REST STR 11/17/2024 10:01 AM EDT POCT GLYCOSYLATED HEMOGLOBIN (HGB A1C) Routine 11/03/2024 10:14 AM EDT Type 2 diabetes mellitus with stage 3a chronic kidney disease, without long-term current use of insulin (HCC) XR CHEST 2V 10/07/2024 12:59 PM EDT [facility] APTT Routine 10/07/2024 12:06 PM EDT [facility] PROTHROMBIN TIME INR W/O COUM Routine 10/07/2024 12:06 PM EDT ALL BASIC METABOLIC PANEL Routine 10/07/2024 12:06 PM EDT ALL CBC WITH AUTO DIFF Routine 12:06 PM EDT ECG 12-LEAD 10/07/2024 10:01 AM EDT COLONOSCOPY Routine 11/01/2023 11:19 AM EDT MM TOMOSYNTHESIS SCREENING BI 09/28/2023 10:49 AM EDT from Last 3 Months or Most Recently Relevant to Health Maintenance Results * XR chest 2 views (11/25/2024 7:52 AM EDT) Anatomical Region Laterality Modality Chest Radiographic [facility] IMG XR PROCEDURES Final Result * NM MALIK PERF SPECT REST STR (11/17/2024 10:01 AM EDT) Anatomical Region Laterality Modality Other 11/17/2024 10:0 1 AM EDT Narrative 11/17/2024 10:02 [place] [address] Nuclear Medicine Report Signed Patient: SHARLENE HUMPHREYS MR#: [id number] : 1970 Acct:[id number] Age/Sex: 53 / F ADM Date: 11/13/24 Loc: NM Attending Dr: Tk Espinoza M.D. Ordering Physician: Tk Espinoza M.D. Date of Service: 11/13/24 Procedure(s): NM malik perf SPECT rest str Accession Number(s): [id number] cc: Janene Lew TERRAZZO POLISHER HELPER; Tk Espinoza M.D. Patient Name: SHARLENE HUMPHREYS MR#: [id number] : 1970 Exam Date: 11/13/2024 Ordering Doctor: DR TK ESPINOZA M.D. RADIOLOGY REPORT PROCEDURE: NM MALIK PERF SPECT REST STR COMPARISON: None. INDICATIONS: PRE-OP EVALUATION, CORONARY ARTERY DISEASE TECHNIQUE: Exam Description: Stress/Rest one day protocol gated SPECT Rest Imagin.8 mCi Tc-99m Cardiolite IV on 11/13/2024 Stress Imaging 30.7 mCi Tc-99m Cardiolite IV on 11/13/2024 Exercise Protocol: 0.4 mg Lexiscan given IV Heart Rate (bpm): Rest: 46 Max: 64 PMHR: 38 Blood Pressure: Rest: 117/73 Max: 130/66 Symptoms: Rest and peak stress ECG findings were pending and the EKG portion of the study was pending per attending physician [facility] . For more details please see separate cardiac stress test report. FINDINGS: QUALITY OF STUDY: Fair PERFUSION DEFECT: 1.LOCATION: Inferolateral SIZE: Small SEVERITY: Mild TYPE: Reversible 2.LOCATION apical SIZE small SEVERITY moderate TYPE fixed WALL MOTION: LV SIZE: 131 mL. TID / TCD: 1.0 LVEF: Calculated EF 74%. SUMMARY: Abnormal myocardial perfusion imaging study CONCLUSION: Abnormal myocardial perfusion stress study showing evidence of small area of mild inferolateral ischemia Normal left ventricular systolic function, ejection fraction 74% No transient ischemic dilatation, TID 1.0 EKG portion of stress test is reported separately Dictated by: Goldy Hernandez MD on 11/17/2024 at 09:48 Approved by: Goldy Hernandez MD on 11/17/2024 at 10:01 Dictated By: Goldy Hernandez M.D. Signed By: 11/17/24 1002 DD/ 1001 TD/TT: Wood Cutter: Procedure Note Radiology, Radiologist, - 11/17/2024 [place] [address] Nuclear Medicine Report Signed Patient: SHARLENE HUMPHREYS AMR#: [id number] : 1970Acct:[id number] Age/Sex: 53 / FADM Date: 11/13/24 Loc: NM Attending Dr: Tk Espinoza M.D. Ordering Physician: Tk Espinoza M.D. Date of Service: 11/13/24 Procedure(s): NM malik perf SPECT rest str Accession Number(s): [id number] cc: Janene Lew TERRAZZO POLISHER HELPER; Tk Espinoza M.D. Patient Name: SHARLENE HUMPHREYS MR#: [id number] : 1970 Exam Date: 11/13/2024 Ordering Doctor: DR TK ESPINOZA M.D. RADIOLOGY REPORT PROCEDURE: NM MALIK PERF SPECT REST STR COMPARISON: None. INDICATIONS: PRE-OP EVALUATION, CORONARY ARTERY DISEASE TECHNIQUE: Exam Description: Stress/Rest one day protocol gated SPECT Rest Imagin.8 mCi Tc-99m Cardiolite IV on 11/13/2024 Stress Imaging 30.7 mCi Tc-99m Cardiolite IV on 11/13/2024 Exercise Protocol: 0.4 mg Lexiscan given IV Heart Rate (bpm): Rest: 46 Max: 64 PMHR: 38 Blood Pressure: Rest: 117/73 Max: 130/66 Symptoms: Rest and peak stress ECG findings were pending and the EKG portion of the study was pending per attending physician [facility] . For more details pleasesee separate cardiac stress test report. FINDINGS: QUALITY OF STUDY: Fair PERFUSION DEFECT: 1.LOCATION: Inferolateral SIZE: Small SEVERITY: Mild TYPE: Reversible 2.LOCATION apical SIZE small SEVERITY moderate TYPE fixed WALL MOTION: LV SIZE: 131 mL. TID / TCD: 1.0 LVEF: Calculated EF 74%. SUMMARY: Abnormal myocardial perfusion imaging study CONCLUSION: Abnormal myocardial perfusion stress study showing evidence of small areaof mild inferolateral ischemia Normal left ventricular systolic function, ejection fraction 74% No transient ischemic dilatation, TID 1.0 EKG portion of stress test is reported separately Dictated by: Goldy Hernandez MD on 11/17/2024 at 09:48 Approved by: Goldy Hernandez MD on 11/17/2024 at 10:01 Dictated By: Goldy Hernandez M.D. Signed By:11/17/24 1002 DD/ 1001 TD/TT: Wood Cutter: Generic External Data Provider [facility] Final Result * POCT glycosylated hemoglobin (Hb A1C) docked device (11/03/2024 10:14 AM EDT) Hemoglobin A1C 5.2 Blood Venous blood specimen / Unknown 11/03/2024 10:14 AM EDT Marya M Shalini DO POINT OF CARE TEST ENTER/E DIT ORDERABLES Final Result * XR CHEST 2V (10/07/2024 12:59 PM EDT) Anatomical Region Laterality Modality Other 10/07/2024 12:5 9 PM EDT Narrative 10/07/2024 1:02 [place] [address] XRay Report Signed Patient: SHARLENE HUMPHREYS MR#: [id number] : 1970 Acct:[id number] Age/Sex: 53 / F ADM Date: 10/07/24 Loc: PST Attending Dr: Elza Felton M.D. Ordering Physician: Elza Felton M.D. Date of Service: 10/07/24 Procedure(s): XR chest 2V Accession Number(s): [id number] cc: Janene Lew TERRA[employer]O POLISHER HELPER; Elza Felton M.D. [place] [address] Patient Name: SHARLENE HUMPHREYS MRN: TBH:[id number] date: 1970 Sex: F Assigned Patient Location: [facility] Current Patient Location: [facility] [[email or web address] Accession/Order Number: [id number] Exam Date: 10/07/2024 12:58 Report Date: 10/07/2024 12:59 At the request of: ELZA FELTON MD Procedure: XR chest 2V Chest 2 views CLINICAL HISTORY: Pre Op COMPARISON: Chest 07/05/2024 FINDINGS: Heart normal in size. Lungs are clear. No free air. XR/XR chest 2V IMPRESSION: NO ACUTE CARDIOPULMONARY ABNORMALITY. Impression dictated by: Kip Mon Jr., D.O. 10/07/2024 12:59 PM Dictation Location: [place] [address] Electronically authenticated by: [id number] Y Date: 10/07/2024 12:59 Dictated By: Kip Mon M.D. Signed By: 10/07/24 1302 DD/ 1259 TD/TT: Wood Cutter: Procedure Note Radiology, Radiologist, MD - 10/07/2024 [place] [address] XRay Report Signed Patient: SHARLENE HUMPHREYS AMR#: [id number] : 1970Acct:[id number] Age/Sex: 53 / FADM Date: 10/07/24 Loc: [facility] Attending Dr: Elza Felton M.D. Ordering Physician: Elza Felton M.D. Date of Service: 10/07/24 Procedure(s): XR chest 2V Accession Number(s): [id number] cc: Janene Lew TERRAZZO POLISHER HELPER; Elza Felton M.D. The [address] [address] Patient Name: SHARLENE HUMPHREYS MRN: [facility]:[id number] date: 1970 Sex: F Assigned Patient Location: [facility] [[email or web address]] Current Patient Location: [facility] [[email or web address]] Accession/Order Number: [id number] Exam Date: 10/07/2024 12:58 Report Date: 10/07/2024 12:59 At the request of: ELZA FELTON MD Procedure: XR chest 2V Chest 2 views CLINICAL HISTORY: Pre Op COMPARISON: Chest 07/05/2024 FINDINGS: Heart normal in size. Lungs are clear. No free air. XR/XR chest 2V IMPRESSION: NO ACUTE CARDIOPULMONARY ABNORMALITY. Impression dictated by: iKp Mon Jr., D.O. 10/07/2024 12:59 PM Dictation Location: [place] [address] Electronically authenticated by: [id number] Y Date: 2:59 Dictated By: Kip Mon M.D. Signed By:10/07/24 1302 DD/ 1259 TD/TT: Wood Cutter: Generic External Data Provider [facility] Final Result * [facility] PROTHROMBIN TIME INR W/O COUM (10/07/2024 12:06 PM EDT) PROTHROMBIN TIME 10.9 9.0 - 11.6 sec TBH TBH INR 1.03 TBH Comment: DESIRED INR: 2.0-3.0 CONDITIONS NOT LISTED BELOW 2.5-3.5 FOR PROSTHETIC HEART VALVE REPLACEMENT 2.5-3.5 RECURRENT THROMBOSIS 10/07/2024 12:0 6 PM EDT 10/07/2024 12:14 PM EDT Narrative [facility] - 10/07/2024 1:24 PM EDT Generic External Data Provider [facility] F inal Result [facility] * [facility] APTT (10/07/2024 12:06 PM EDT) PARTIAL THROMBOPLASTIN TIME 28.0 22.3 - 36.2 sec TB 10/07/2024 12:0 6 PM EDT 10/07/2024 12:14 PM EDT Narrative [facility] - 10/07/2024 1:24 PM EDT Generic External Data Provider [facility] F inal Result [facility] * (ABNORMAL) ALL CBC WITH AUTO DIFF (10/07/2024 12:06 PM EDT) TB WBC 4.5 4.0 - 11.0 10 3/uL TBH TBH RBC 3.69(L) 4.20 - 5.40 10 6/uL TBH TBH HGB 11.1(L) 12.0 - 16.0 g/dL TBH TBH HCT 33.2(L) 36.0 - 48.0 % TBH TBH MCV 90.0 81.0 - 99.0 fL TBH TBH MCH 30.1 26.7 - 34.0 pg TBH TBH MCHC 33.4 29.9 - 35.2 g/dL TBH TBH RDW 12.9 11.0 - 15.0 % TBH TBH PLT 234 150 - 450 10 3/uL TBH TBH MPV 11.2 9.5 - 13.5 fL TBH NEUTROPHILS PERCENT AUTO 50.4 43.0 - 75.0 % TBH LYMPHOCYTES PERCENT AUTO 38.2 20.5 - 60.0 % TBH MONOCYTES PERCENT AUTO 7.0 1.7 - 12.0 % TBH TBH EO % 3.1 0.9 - 7.0 % TBH BASOPHILS PERCENT AUTO 1.1 0.2 - 2.0 % TBH IMMATURE GRANULOCYTES PCT AUTO 0.2 0.0 - 0.5 % TBH NEUTROPHILS ABSOLUTE AUTO 2.2 1.4 - 6.5 10 3/uL TBH LYMPHOCYTES ABSOLUTE AUTO 1.7 1.2 - 3.8 10 3/uL TBH MONOCYTES ABSOLUTE AUTO 0.3 0.3 - 0.8 10 3/uL TBH TBH EO # 0.1 0.0 - 0.7 10 3/uL TBH BASOPHILS ABSOLUTE AUTO 0.1 0.0 - 0.1 10 3/uL TBH IMMATURE GRANULOCYTES ABS AUTO 0.01 0.00 - 0.03 10 3/uL TBH 10/07/2024 12:0 6 PM EDT 10/07/2024 12:14 PM EDT Narrative [facility] - 10/07/2024 12:43 PM EDT us Generic External Data Provider [facility] F inal Result [facility] * (ABNORMAL) ALL BASIC METABOLIC PANEL (10/07/2024 12:06 PM EDT) Pathologist [facility] SODIUM 143 136 - 145 mmol/L TBH POTASSIUM 4.0 3.5 - 5.1 mmol/L TBH CHLORIDE 108(H) 98 - 107 mmol/L TBH CARBON DIOXIDE 25.7 21.0 - 32.0 mmol/L TBH ANION GAP 13.3 TBH GLUCOSE 93 74 - 106 mg/dL TBH BLOOD UREA NITROGEN 35.0(H) 7.0 - 18.0 mg/dL TBH CREATININE 1.52(H) 0.55 - 1.02 mg/dL TBH TBH EGFR-AF BURMESE 43(L) >=60 mL/min/1.7 3m 2 TBH TBH EGFR-NON AF BURMESE 36(L) >=60 mL/min/1.7 3m 2 TBH BUN CREATININE RATIO 23.0 TBH CALCIUM 9.1 8.5 - 10.1 mg/dL TBH 10/07/2024 12:0 6 PM EDT 10/07/2024 12:14 PM EDT Narrative [facility] - 10/07/2024 12:58 PM EDT Generic External Data Provider [facility] * ECG 12-LEAD (10/07/2024 10:01 AM EDT) Anatomical Region Laterality Modality Other 10/07/2024 10:0 1 AM EDT Narrative 10/07/2024 9:54 [place] [address] Electrocardiograph Report Signed Patient: SHARLENE HUMPHREYS MR#: [id number] : 1970 Acct:[id number] Age/Sex: 53 / F ADM Date: 10/07/24 Loc: PST Attending Dr: Elza Felton M.D. Ordering Physician: Elza Felton M.D. 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 Measurements Intervals [place] Rate: 51 P: 30 WI: 182 QRS: -16 QRSD: 105 T: 0 [...] Dictated By: LITO EDEN Signed By: 10/07/24 5068 DD/ 1001 TD/TT: Wood Cutter: Procedure Note Radiology, Radiologist, MD - 10/07/2024 [place] [address] Electrocardiograph Report Signed Patient: SHARLENE HUMPHREYS AMR#: [id number] : 1970Acct:[id number] Age/Sex: 53 / FADM Date: 10/07/24 Loc: [facility] Attending Dr: Elza Felton M.D. Ordering Physician: Elza Felton M.D. Date of Service: 10/07/24 Procedure(s): ECG 12 lead Accession Number(s): [id number] cc: [facility] Test Date: 2024-10-07 Pat Name: SHARLENE HUMPHREYS Department: Room: - Gender: Female Building Maintenance Worker: : 1970 Requested By: 1822 Order Number: [id number] Reading MD: LITO EDEN M.D. Measurements Intervals [place] Rate: 51 P: 30 WI: 182 QRS: -16 QRSD: 105 T: 0 QT: 407 QTc: 378 Interpretive Statements SINUS BRADYCARDIA LOW QRS VOLTAGE IN PRECORDIAL LEADS [QRS DEFLECTION < 1.0 mV IN CHESTLEADS] POSSIBLE ANTERIOR MYOCARDIAL INFARCTION [30 ms Q WAVE IN V3/V4, OR R < 0.2mV IN V4], PROBABLY OLD INFERIOR MYOCARDIAL INFARCTION [40+ ms Q WAVE AND/OR ST/T ABNORMALITY IN II/aVF], PROBABLY OLD Compared to ECG 04/03/2023 21:59:59 Myocardial infarct finding now present Electronically Signed On 10-07-2024 21:53:51 EDT by LITO EDEN M.D. Dictated By: LITO EDEN Signed By:10/07/24 9225 DD/ 1001 TD/TT: Wood Cutter: us Generic External Data Provider [facility] Final Result * Colonoscopy (11/01/2023 11:19 AM EDT) Anatomical Region Laterality Modality Endoscopy us Jhonathan Ashley MD ENDOSCOPY PROCEDURE ORDERABL ES Final Result * MM TOMOSYNTHESIS SCREENING BI (09/28/2023 10:49 AM EDT) Anatomical Region Laterality Modality Other 09/28/2023 10:4 9 AM EDT Narrative 09/28/2023 10:50 [place] [address] Mammography Report Signed Patient: SHARLENE HUMPHREYS MR#: [id number] : 1970 Acct:[id number] Age/Sex: 52 / F ADM Date: 09/28/23 Loc: MAMMO Attending Dr: Janene Lew NP Ordering Physician: Janene Lew NP Results: Date of Service: 09/28/23 Follow Up: Procedure(s): MM tomosynthesis screening BI Accession Number(s): [id number] cc: Janene Lew NP Patient Name: SHARLENE HUMPHREYS MR#: [id number] : 1970 Exam Date: 09/28/2023 Ordering Doctor: [...] cancer at age 73. LOCATION: [facility] BREAST COMPOSITION: There are scattered areas of [...] Signed By: 09/28/23 1050 DD/ 1049 TD/TT: Wood Cutter: Procedure Note Radiology, Radiologist, - 09/28/2023 [place] [address] Mammography Report Signed Patient: SHARLENE HUMPHREYS AMR#: [id number] : 1970Acct:[id number] Age/Sex: 52 / FADM Date: 09/28/23 Loc: MAMMO Attending Dr: Janene Lew NP Ordering Physician: Janene Lew NPResults: Date of Service: 09/28/23Follow Up: Procedure(s): MM tomosynthesis screening BI Accession Number(s): [id number] cc: Janene Lew NP Patient Name: SHARLENE HUMPHREYS MR#: [id number] : 1970 Exam Date: 09/28/2023 Ordering Doctor: AGUSTINA Lew PATIENT RESOURCE SPECIALIST RADIOLOGY REPORT PROCEDURE: MM TOMOSYNTHESIS SCREENING BI [...] cancer at age 73. LOCATION: [facility] BREAST COMPOSITION: There are scattered areas of [...] M.D. Signed By:09/28/23 1050 DD/ 1049 TD/TT: Wood Cutter: us Janene Lew NP [facility] Final Result from Last 3 Months or Most Recently Relevant to Health Maintenance Insurance BCBS Care Teams Metal Wire Technician Relationship Specialty Start Date End Date Markel Braxton MD [address] [place] [address] PCP - General Family Medicine 05/03/23
--- OUTSIDE RECORDS SUMMARY | 2024-12-06 10:28 | XMS_ITS | Encounter Summary ---
Author Organization [facility] Address [address] [place] [address] Care Team Providers Care Safety Physician Name Role Phone Markel Braxton MD Primary Care Provider [phone] Encounter Details Date Type Department Care Team (Late st Contact Info) Description 10/07/2024 Abstract [facility] [address] [place] [address] Janene Lew NP [address] [place] [address] Social History Tobacco Use Types Packs/Day Years [...] How often do you attend mandaeism or yarsanism serv ices? Never 05/02/2023 Do you belong [...] Recorded Patient Health Questionnaire-2 Score 0 06/16/2024 [facility] [...] in a assisted (including now)? Yes 05/02/2023 Comments Unknown Sex [...] Office Visit [facility] [address] [place] [address] Janene Lew NP [address] [place] [address] 05/05/2025 10:15 AM EST Office [facility] [address] [place] [address] Marya Loya DO [address] [place] [address] documented as of this encounter Visit Diagnoses Not on filedocumented in this encounter Additional Health Concerns Assessment Noted Time PHQ-9 Depression Total Score: 16 024 1:18 PM EST documented as of this encounter Care Teams Safety Physician Relationship Specialty Start Date End Date Markel Braxton MD [address] [place] [address] PCP - General Family Medicine 05/03/23 documented as of this encounter
--- OUTSIDE RECORDS SUMMARY | 2024-12-06 10:28 | XMS_ITS | Encounter Summary ---
Author Organization [facility] Address [address] [place] [address] Care Team Providers Care Upper Doubler Name Role Phone Markel Braxton MD Primary Care Provider [phone] Janene Lew NP Unavailable [phone] Encounter Details Date Type Department Care [...] week 05/02/2023 How often do you attend restoration or worship serv ices? Never 05/02/2023 Do you belong to any clubs o r organizations such as restoration groups, unions, fraternal or athletic groups, or [...] Recorded Patient Health Questionnaire-2 Score 0 09/20/2023 [facility] - [facility] Stress Questionnaire Answer Date Recorded [...] place to sleep or slept in a usp (including now)? Yes 05/02/2023 Comments Unknown Sex [...] Office Visit [facility] [address] [place] [address] Janene Lew NP [address] [place] [address] 05/05/2025 10:15 AM EST Office Visit [facility] [address] [place] [address] Marya Loya DO [address] [place] [address] documented as of this encounter Procedures Procedure Name Priority Date/Time Associated Diagnosis Comments MR LUMBAR SPINE WO CON 02/01/2024 7:33 AM EDT documented in this encounter Results * MR LUMBAR SPINE WO CON (02/01/2024 7:33 AM EDT) Anatomical Region Laterality Modality Other 02/01/2024 7:33 AM EDT Narrative 02/01/2024 7:36 AM EDT The [address] [address] Magnetic Resonance Report Signed Patient: SHARLENE HUMPHREYS MR#: [id number] : 1970 Acct:[id number] Age/Sex: 53 / F ADM Date: 01/31/24 Loc: MRI Attending Dr: Elizabeth Diamond NP Ordering Physician: Elizabeth Diamond NP Date of Service: 01/31/24 Procedure(s): MR lumbar spine wo con Accession Number(s): [id number] cc: Janene Lew NP; Elizabeth Diamond NP [place] [address] Patient Name: SHARLENE HUMPHREYS MRN: [id number] date: 1970 Sex: F Assigned Patient Location: MRI Current Patient Location: Accession/Order Number: [id number] Exam Date: 01/31/2024 10:00 Report Date: 02/01/2024 [...] M.D. Signed By: 02/01/24735 DD/ 2 TD/TT: Prehemmer: Procedure Note Radiology, Radiologist, MD - 02/01/2024 [place] [address] Magnetic Resonance Report Signed Patient: SHARLENE HUMPHREYS AMR#: [id number] : 1970Acct:[id number] Age/Sex: 53 / FADM Date: 01/31/24 Loc: MRI Attending Dr: Elizabeth Diamond CAMERA ENGINEER Ordering Physician: Elizabeth Diamond NP Date of Service: 01/31/24 Procedure(s): MR lumbar spine wo con Accession Number(s): [id number] cc: Janene Lew CAMERA ENGINEER; Elizabeth Diamond NP The [place] [id number] Patient Name: SHARLENE HUMPHREYS MRN: [id number] date: 1970 Sex: F Assigned Patient Location: MRI Current Patient Location: Accession/Order Number: [id number] Exam Date: 01/31/2024 10:00 Report Date: 02/01/2024 [...] Alex Allen M.D. Signed By:02/01/2436 DD/ TD/TT: Prehemmer: Generic External Data Provider [facility] Final Result documented in this encounter Visit Diagnoses Not on filedocumented in this encounter Additional Health Concerns Assessment Noted Time PHQ-9 Depression Total Score: 16 024 1:18 PM EST documented as of this encounter Care Teams Upper Doubler Relationship Specialty Start Date End Date Markel Braxton MD [address] [place] [address] PCP - General Family Medicine 05/03/23 Janene Lew NP [address] [place] [address] PCP - [place] [employer] 09/15/23 documented as of this encounter
--- OUTSIDE RECORDS SUMMARY | 2024-12-06 10:28 | XMS_ITS | Encounter Summary ---
Author Organization [facility] Address [address] [place] [address] Care Team Providers Care Health And Physical Education Teacher Name Role Phone Markel Braxton MD Primary Care Provider [phone] Janene Lew NP Unavailable [phone] Encounter Details Date Type Department Care Team (Late st Contact Info) Description 09/28/2023 Clinisync Result Encounter [facility] External Department Unsolicited Janene Lew, ELIER [address] [place] [address] Social History Tobacco Use Types Packs/Day Years [...] week 05/02/2023 How often do you attend jainism or gnosticist serv ices? Never 05/02/2023 Do you belong to any clubs o r organizations such as jainism groups, unions, fraternal or athletic groups, or [...] Recorded Patient Health Questionnaire-2 Score 0 09/20/2023 [facility] - Occupational Stress Questionnaire Answer Date [...] place to sleep or slept in a jail (including now)? Yes 05/02/2023 Comments Unknown Sex and Gender Information Value Date Recorded Sex Assigned at Not on file Legal Sex Female 7:05 PM EDT Gender Identity Not on file Sexual Orientation Not on file documented as of this encounter Plan of Treatment Upcoming Encounters Date Type Department Care Team (Late st Contact Info) Description 12/16/2024 8:30 AM EDT Office Visit [facility] [address] [place] [address] Janene Lew NP [address] [place] [address] 05/05/2025 10:15 AM EST Office Visit [facility] [address] [place] [address] Marya Loya DO [address] [place] [address] documented as of this encounter Procedures Procedure Name Priority Date/Time Associated Diagnosis Comments MM TOMOSYNTHESIS SCREENING BI 09/28/2023 10:49 AM EDT documented in this encounter Results * MM TOMOSYNTHESIS SCREENING BI (09/28/2023 10:49 AM EDT) Anatomical Region Laterality Modality Other 09/28/2023 10:4 9 AM EDT [facility] 09/28/2023 10:50 AM EDT The [address] [address] Mammography Report Signed Patient: SHARLENE HUMPHREYS MR#: [id number] : 1970 Acct:[id number] Age/Sex: 52 / F ADM Date: 09/28/23 Loc: MAMMO Attending Dr: Janene Lew NP Ordering Physician: Janene Lew NP Results: Date of Service: 09/28/23 Follow Up: Procedure(s): MM tomosynthesis screening BI Accession Number(s): [id number] cc: Janene Lew NP Patient Name: SHARLENE HUMPHREYS MR#: [id number] : 1970 Exam Date: 09/28/2023 Ordering Doctor: [...] head/neck cancer at age 73. LOCATION: The [facility] BREAST COMPOSITION: There are scattered [...] Signed By: 09/28/23 1050 DD/ 1049 TD/TT: Birthing Nurse: Procedure Note Radiology, Radiologist, - 09/28/2023 The [place] [id number] Mammography Report Signed Patient: SHARLENE HUMPHREYS AMR#: [id number] : 1970Acct:[id number] Age/Sex: 52 / FADM Date: 09/28/23 Loc: MAMMO Attending Dr: Janene Lew NP Ordering Physician: Janene Lew NPResults: Date of Service: 09/28/23Follow Up: Procedure(s): MM tomosynthesis screening BI Accession Number(s): [id number] cc: Janene Lew NP Patient Name: SHARLENE HUMPHREYS MR#: [id number] : 1970 Exam Date: 09/28/2023 Ordering Doctor: [...] head/neck cancer at age 73. LOCATION: The [facility] BREAST COMPOSITION: There are scattered [...] M.D. Signed By:09/28/23 1050 DD/ 1049 TD/TT: Birthing Nurse: us Janene Aichholz BRICK OFF BEARER [facility] Final Result documented in this encounter Visit Diagnoses Not on filedocumented in this encounter Additional Health Concerns Assessment Noted Time PHQ-9 Depression Total Score: 16 024 1:18 PM EST documented as of this encounter Care Teams Health And Physical Education Teacher Relationship Specialty Start Date End Date Markel Braxton MD [address] [place] [address] PCP - General Family Medicine 05/03/23 Janene Lew NP [address] [place] [address] PCP - Marshall Jaimes 09/15/23 documented as of this encounter
--- OUTSIDE RECORDS SUMMARY | 2024-12-06 10:28 | XMS_ITS | Encounter Summary ---
Author Organization [facility] Address [address] [place] [address] Care Team Providers Care Oil Sprayer Name Role Phone Janene Lew MD Primary Care Provider [phone] Encounter Details Date Type Department Care Team (Late st Contact Info) Description 11/18/2024 Telephone [facility] [address] [place] [address] Lauren Thurston MA Social History Tobacco Use Types Packs/Day Years [...] encounter Miscellaneous Notes * Telephone Encounter - Lauren Thurston MA - 11/18/2024 1:28 PM EDT Images from the original note were not included. Regarding stress test result from 11/13/2024: Tk Godoy MD to Me (Selected Message) EE 11/18/24 4:19 AM Please let her know her stress test is abnormal and I would recommend cardiac cath: CORS via L radial approach. Thanks Spoke with Sherly and made her aware. Lab orders faxed to [facility]. She verbalized understanding. documented in this encounter Plan of Treatment Upcoming Encounters Date Type Department Care Team (Late st Contact Info) Description 12/12/2024 8:30 AM EDT Hospital Encounter [facility] Heart [facility] [address] [place] [address] Tk Godoy MD [address] [place] [address] Abnormal cardiovascular stress test 12/12/2024 8:30 AM EDT - 12/12/2024 9:30 AM EDT Surgery [facility] Heart [facility] [address] [place] [address] Tk Godoy MD [address] [place] [address] Coronary angiography 01/12/2025 10:00 AM EDT Office Visit [facility] [place] [address] [place] [address] Tk Godoy MD [address] [place] [address] Scheduled Orders Name Type Priority Associated Diagnoses Orde r Schedule CBC and differential Lab Routine Abnormal cardiovascular stress test Expected: 11/18/2024 (Approximate), Expires: 11/18/2025 Basic metabolic panel Lab Routine Abnormal cardiovascular stress test Expected: 11/18/2024 (Approximate), Expires: 11/18/2025 documented as of this encounter Visit Diagnoses Diagnosis Abnormal cardiovascular stress test- Primary Other nonspecific abnormal cardiovascular system function study Abnormal cardiovascular stress test- Primary Other nonspecific abnormal cardiovascular system function study Abnormal cardiovascular stress test Other nonspecific abnormal cardiovascular system function study documented in this encounter Care Teams Oil Sprayer Relationship Specialty Start Date End Date Janene Lew MD [facility] [place]note 2] [place] [address] PCP - General 09/26/22 documented as of this encounter
--- OUTSIDE RECORDS SUMMARY | 2024-12-06 10:28 | XMS_ITS | Encounter Summary ---
Author Organization [facility] Address [address] [place] [address] Care Team Providers Care Shell Press Operator Name Role Phone Markel Braxton MD Primary Care Provider [phone] Janene Lew NP Unavailable [phone] Encounter Details Date Type Department Care Team (Late st Contact Info) Description 11/01/2023 Orders Only [facility] [address] [address] Jhonathan Clemente MD [address] [facility] [address] [place] [address] Social History Tobacco Use Types [...] week 05/02/2023 How often do you attend baptist or jain serv ices? Never 05/02/2023 Do you belong to any clubs o r organizations such as baptist groups, unions, fraternal or athletic groups, or [...] Recorded Patient Health Questionnaire-2 Score 0 09/20/2023 [facility] - Occupational [...] Office Visit [facility] [address] [place] [address] Janene Lew NP [address] [place] [address] 05/05/2025 10:15 AM EST Office Visit [facility] [place] [facility] [address] [place] [address] Marya Loya DO [address] [place] [address] documented as of this encounter [...] documented as of this encounter Care Teams Shell Press Operator Relationship Specialty Start Date End Date Markel Braxton MD [address] [place] [address] PCP - General Family Medicine 05/03/23 Janene Lew NP [address] [place] [address] PCP - Marshall Jaimes 09/15/23 documented as of this encounter
--- OUTSIDE RECORDS SUMMARY | 2024-12-06 10:29 | XMS_ITS | CCD ---
Author Organization [facility] Care Team Providers Care Shipping Weigher Name Role Phone Peng Merino Admitting Unavailable Peng Merino Attending Unavailable GEOVANNI BRUNNER Primary Care Unavailable HAMMAD LING Referring Unavailabl e [place] Procedure Practitioner Unavailab TK Beaulieu Surgeon Unavailable Christian Hamilton Unavailable Janene Lew Primary Care Provider MD Christian Hamilton Attending Provider ELIER Bolivar Attending Provider [phone] Emma Bolivar Unavailable Halle Mac Unavailable Janene Lew Primary Care Provider STU Hernandez-LYNNE Antunez Emergency Provider Ivan Sams Unavailable AICHHOLZ, PAINT SPRAY INSPECTOR JANENE Consulting Unavailable AICHHOLZ, PAINT SPRAY INSPECTOR JANENE Attending Unavailable AICHHOLZ, PAINT SPRAY INSPECTOR JANENE Admitting Unavailable AICHHOLZ, PAINT SPRAY INSPECTOR JANENE Primary Care Unavailable AICHHOLZ, PAINT SPRAY INSPECTOR JANENE Consulting Unavailable AICHHOLZ, PAINT SPRAY INSPECTOR JANENE Attending Unavailable AICHHOLZ, PAINT SPRAY INSPECTOR JANENE Admitting Unavailable AICHHOLZ, PAINT SPRAY INSPECTOR JANENE Primary Care Unavailable AICHHOLZ, PAINT SPRAY INSPECTOR JANENE Primary Care Unavailable AICHHOLZ, PAINT SPRAY INSPECTOR JANENE Consulting Unavailable AICHHOLZ, PAINT SPRAY INSPECTOR JANENE Admitting Unavailable AICHHOLZ, PAINT SPRAY INSPECTOR JANENE Attending Unavailable AYDIN Carrillo, DR MIGUEL Attending Unavailable AYDIN Carrillo, DR MIGUEL Admitting Unavailable AYDIN Carrillo, DR MIGUEL Consulting Unavailable AICHHOLZ, PAINT SPRAY INSPECTOR JANENE Primary Care Unavailable AICHHOLZ, PAINT SPRAY INSPECTOR JANENE Primary Care Unavailable DWAYNE FRIEDMAN Admitting Unavailable DWAYNE FRIEDMAN Attending Unavailable CLEMENT PLUMMER Consulting Unavailable Wan Jenkins Consulting Unavailable AICHHOLZ, PAINT SPRAY INSPECTOR JANENE Primary Care Unavailable EVON TRAMMELL Attending Unavailable EVON TRAMMELL Admitting Unavailable EVON TRAMMELL Consulting Unavailable LUZ COELLO Consulting Unavailable NATHAN COLE Consulting Unavailable LIN GARRETT Consulting Unavailable AICHHOLZ, PAINT SPRAY INSPECTOR JANENE Primary Care Unavailable AICHHOLZ, PAINT SPRAY INSPECTOR JANENE Admitting Unavailable AICHHOLZ, PAINT SPRAY INSPECTOR JANENE Attending Unavailable DR ALEX ALLEN V Consulting Unavailable AICHHOLZ, PAINT SPRAY INSPECTOR JANENE Consulting Unavailable AICHHOLZ, PAINT SPRAY INSPECTOR JANENE Consulting Unavailable AICHHOLZ, PAINT SPRAY INSPECTOR JANENE Attending Unavailable AICHHOLZ, PAINT SPRAY INSPECTOR JANENE Admitting Unavailable AICHHOLZ, PAINT SPRAY INSPECTOR JANENE Primary Care Unavailable DR KATHY LOBATO Consulting Unavailable AICHHOLZ, PAINT SPRAY INSPECTOR JANENE Attending Unavailable AICHHOLZ, PAINT SPRAY INSPECTOR JANENE Admitting Unavailable AICHHOLZ, PAINT SPRAY INSPECTOR JANENE Primary Care Unavailable DR ALEX ALLEN V Consulting Unavailable AICHHOLZ, PAINT SPRAY INSPECTOR JANENE Consulting Unavailable AICHHOLZ, PAINT SPRAY INSPECTOR JANENE Consulting Unavailable AICHHOLZ, PAINT SPRAY INSPECTOR JANENE Primary Care Unavailable AICHHOLZ, PAINT SPRAY INSPECTOR JANENE Attending Unavailable AICHHOLZ, PAINT SPRAY INSPECTOR JANENE Admitting Unavailable AICHHOLZ, PAINT SPRAY INSPECTOR JANENE Primary Care Unavailable AICHHOLZ, PAINT SPRAY INSPECTOR JANENE Admitting Unavailable AICHHOLZ, PAINT SPRAY INSPECTOR JANENE Consulting Unavailable AICHHOLZ, PAINT SPRAY INSPECTOR JANENE Attending Unavailable DR KATHY LOBATO Consulting Unavailable AICHHOLZ, PAINT SPRAY INSPECTOR JANENE Primary Care Unavailable BAKHOUS, AZIZ Admitting Unavailable BAKHOUS, AZIZ Attending Unavailable AICHHOLZ, PAINT SPRAY INSPECTOR JANENE Attending Unavailable AICHHOLZ, PAINT SPRAY INSPECTOR JANENE Admitting Unavailable AICHHOLZ, PAINT SPRAY INSPECTOR JANENE Primary Care Unavailable AICHHOLZ, PAINT SPRAY INSPECTOR JANENE Primary Care Unavailable AICHHOLZ, PAINT SPRAY INSPECTOR JANENE Consulting Unavailable AICHHOLZ, PAINT SPRAY INSPECTOR JANENE Attending Unavailable AICHHOLZ, PAINT SPRAY INSPECTOR JANENE Admitting Unavailable DR KATHY LOBATO Consulting Unavailable AICHHOLZ, PAINT SPRAY INSPECTOR JANENE Primary Care Unavailable AICHHOLZ, PAINT SPRAY INSPECTOR JANENE Admitting Unavailable AICHHOLZ, PAINT SPRAY INSPECTOR JANENE Attending Unavailable AICHHOLZ, PAINT SPRAY INSPECTOR JANENE Consulting Unavailable AICHHOLZ, PAINT SPRAY INSPECTOR JANENE Primary Care Unavailable AMBER ., DOLORES Attending Unavailable AMBER ., DOLORES Admitting Unavailable RAMIREZ ., MR LIN Consulting Unavailable AMBER ., DOLORES Consulting Unavailable ALEX AVINA Consulting Unavailable AICHHOLZ, PAINT SPRAY INSPECTOR JANENE Primary Care Unavailable JP, EVON Attending Unavailable JP, EVON Admitting Unavailable JP, EVON Consulting Unavailable Aichholz, Janene J Primary Care Provider MD Valdemar Alonso Attending Provider MD Fauzia Huffman Attending Provider UnavailMD Halle Felton Referring Provider [phone] MARKEL HAQ Primary Care Unavailable Aichholz, Janene J Attending Unavailable Aichholz, Janene J Admitting Unavailable Aichholz, Janene J Primary Care Provider MD Fauzia Huffman Attending Provider UnavailMD Halle Felton Referring Provider [phone] MD Halle Mac Attending Provider [phone] EmigaboRadhaa J Primary Care Provider [phone] MD Valdemar Alonso Attending Provider MD Alma Deng Admit Provider [phone] MD Emmanuel [facility] Other Provider MD Fernando Rosenberg Attending Provider MD Valdemar Alonso Attending Provider [phone] MD Valdemar Alonso Attending Provider MD Ban Clemente Attending Provider Man SHARMA, Marcella Haywood Attending Unavailable Girenee SHARMA, Andrius Vytautchuck Attending Unavailable Girenee SHARMA, Andrius Vytkailyn Attending Unavailable Girenee SHARMA, Marcella Haywood Attending Unavailable Giedraitis MD, Marcella Haywood Attending Unavailable Markel Haq MD Primary Care Provider Louann FORESTRY TREE PRUNER, Janene Unavailable MARYA CASTORENA Attending Unavailable AICHHOLZ, JANENE Attending Unavailable BAN ARTIS Attending Unavailable PETZNICKMARYA M Attending Unavailable AICHHOLZ, JANENE Referring Unavailable AICHHOLZ, JANENE Attending Unavailable PETZNICKDEEPMARYA M Attending Unavailable PETZNICK, MARYA M Attending Unavailable AICHHOLZ, JANENE Attending Unavailable Aichholz, Janene J Primary Care Provider Celeste SHARMA, Valdemar Attending Provider Bubba SHARMA, Halle Attending Provider ELTAHAWY, EHAB Attending Unavailable ELTAHAWShannon, EHAB Attending Unavailable Bakcarmel Aziz Admitting Unavailable Bakmichaels, Aziz Attending Unavailable Aichholz, Janene J Primary Care Unavailable Bakmichaels, Aziz Attending Unavailable Aichholz, Janene J Primary Care Unavailable Bakhous, Aziz Admitting Unavailable Aichholz, Janene J Primary Care Unavailable Valdemar Alonso Admitting Unavailab Valdemar Brock Attending Unavailab Joshua Hernandez DMD Attending Unavailable Allergies Allergy Classification Reported Allergen(s) Allergy Type Date of Onset Reaction(s) Facility (2 sources) Cephalexin Drug Allergy 10-06-19 10 [facility] Repository (2 sources) Levamisole Drug Allergy 05-22-19 13 [facility] (2 sources) Omeprazole; Translations: [OMEPRAZOLE] Drug Allergy 04-20-19 16 [facility] (14 sources) Prochlorperazine Drug Allergy 10-06-19 10 Unknown [facility] (14 sources) Sulfamethoxazole / Trimethoprim Drug Allergy 10-06-19 10 Unknown [facility] (12 sources) Penicillins (Antibiotic) Propensity to adverse reactions Unknown [facility] Other (20 sources) Promethazine; Translations: [PROMETHAZINE] Drug Allergy 06-28-19 14 Unknown, Seizure [facility] (20 sources) empagliflozin; Translations: [EMPAGLIFLOZIN] Drug Allergy 08-11-19 22 Unknown Reaction [facility] (20 sources) Penicillins; Translations: [Penicillins] Allergy to substance 06-28-19 14 [facility] (20 sources) Prochlorperazine; Translations: [PROCHLORPERAZINE] Drug Allergy 06-28-19 14 Unknown [facility] (20 sources) Sulfamethoxazole; Translations: [SULFAMETHOXAZOLE] Drug Allergy 06-28-19 14 [facility] (11 sources) Trimethoprim; Translations: [trimethoprim] Drug Allergy 08-11-19 [facility] (1 source) Sulfonamides (Antibiotic) Drug allergy (disorder) 06-10-19 15 [facility] Repository (20 sources) zolpidem; Translations: [ZOLPIDEM] Drug Allergy 10-01-19 24 [facility] Comment on above: per pt (20 sources) Cephalexin; Translations: [CEPHALEXIN] Drug Allergy 06-28-19 14 [facility] (20 sources) Esomeprazole Drug Allergy 04-27-19 24 GI intolerance [facility] Healthcare (20 sources) Omeprazole Drug Allergy 04-27-19 24 GI intolerance [facility] (20 sources) pantoprazole; Translations: [PANTOPRAZOLE] Drug Allergy 06-23-19 17 GI intolerance [facility] (20 sources) Sulfamethoxazole / Trimethoprim; Translations: [SULFAMETHOXAZOLE-T RIMETHOPRIM] Drug Allergy 04-03-20 14 [facility] (1 source) Doxycycline; Translations: [DOXYCYCLINE CALCIUM] Drug Allergy 06-28-19 14 [facility] Repository (1 source) Esomeprazole; Translations: [ESOMEPRAZOLE MAGNESIUM] Drug Allergy 06-23-19 17 [facility] Repository (1 source) [place]; Translations: [[place]] Propensity to adverse reactions to drug (disorder) 09-17-19 16 [facility] Repository (1 source) Promethazine Drug Allergy 11-27-19 [facility] Repository Medications Current Medications Medication Drug Class(es) Dates Sig (Normalized) Sig (Original) acetaminophen 325 mg / oxyCODONE hydrochloride 7.5 mg oral tablet (20 sources) Opioid Agonist Start: 10-01-2023 End: 10-16-2023 take 1 tablet by mouth every eight hours as needed for pain Oxycodone-Acetami nophen 7.5-325 mg tablet Active 1 TAB PO Every 8 hours as needed for pain October 16, 2023 1:11pm Complies with drug therapy Start: 06-24-2022 End: 08-15-2023 take 1 tablet by mouth every six hours as needed for pain Oxycodone-Acetaminophen 5-325 mg tablet Discontinued 1 TAB PO Q6H as needed for pain 01 16June 24, 2022 August 15, 2023 10:12am take 1 tablet by [facility] in the morning oxyCODONE-acetaminophen (Percocet) 7.5-325 MG tablet Take 1 tablet by mouth in the morning and 1 tablet before bedtime. Active [id number] 200 actuat albuterol 0.09 mg/actuat metered dose [...] take 1 tablet by mouth once daily Amlodipine 10 mg tablet Active 10 MG PO Daily October 16, 2023 12:00am Complies with drug therapy Start: 08-15-2023 End: 10-02-2023 take 1 tablet by mouth once daily Amlodipine 10 mg tablet Discontinued 10 MG PO Daily August 15, 2023 12:00am October 02, 2023 10:55am take 1 tablet by [facility] every twenty-four hours amLODIPine Besylate 5 MG 1 tablet Orally Once a day Active amLODIPine Besyl ate Active ARIPiprazole 30 mg oral tablet (20 sources) Atypical Antipsychotic Start: 08-23-2023 take 1 tablet by mouth once daily Aripiprazole 30 mg tablet Active 30 MG PO Daily March 12, 2024 1:00am Complies with drug therapy Start: 08-15-2023 End: 10-16-2023 take 1 tablet by mouth once daily Aripiprazole 20 mg tablet Discontinued 20 MG PO Daily August 15, 2023 12:00am October 16, 2023 1:13pm Start: 06-04-2021 End: 08-15-2023 take 1 tablet by mouth once daily Aripiprazole 30 mg tablet Discontinued 30 MG PO Daily June 04, [...] Inhibitor, Nonsteroidal Anti-inflammatory Drug Start: 06-06-2021 take 1 tablet by mouth once daily Aspirin 81 mg tablet,delayed release (DR/EC) Active 81 MG PO Daily June 06, 2021 1:00am Complies with drug therapy take 1 tablet by [facility] every twenty-four hours Aspirin 81 MG 1 tablet Orally Once a day Active atorvastatin 80 mg oral tablet (20 sources) HMG-CoA Reductase Inhibitor Start: 08-15-2023 take 1 tablet by mouth once daily Atorvastatin 80 mg tablet Active 80 MG PO Daily August 15, 2023 12:00am Complies with drug therapy Start: 06-04-2021 End: 08-15-2023 take 1 tablet by mouth at bedtime Atorvastatin 40 mg tablet Discontinued 40 MG PO Bedtime June 04, 2021 1:00am August 15, 2023 10:06am azithromycin 250 mg oral tablet (8 sources) Macrolide Antimicrobial Start: 03-06-2024 End: 06-16-2024 azithromycin (Zithromax) 250 MG tablet Indications: Acute non-recurrent pansinusitis 2 pills day #1, then 1 pill day #2-#5 6 tablet 03/06/2024 06/16/2024 Discontinued (Therapy completed) benztropine mesylate 0.5 mg oral tablet (20 sources) Anticholinergic, Antihistamine Start: 02-18-2024 take 1 tablet by mouth twice daily Benztropine 0.5 mg tablet Active 0.5 MG PO Twice daily March 12, 2024 1:00am Complies with drug therapy Biotin (6 sources) Biotin Active Blood Glucose Monitoring Suppl (True Metrix Air Glucose Meter) w/Device kit (20 sources) Start: 11-03-2024 Blood Glucose Monitoring Suppl (True Metrix Air Glucose Meter) w/Device kit Indications: Type 2 diabetes mellitus without complication, without long-term current use of insulin (HCC) 1 each Daily 1 kit 11/03/2024 Active Start: 07-02-2023 End: 11-03-[address] (True Metrix Air Glucose Meter) w/Device kit Indications: Type 2 diabetes mellitus without complication, without long-term current use of insulin (HCC) 1 each Daily 1 kit 07/02/2023 11/03/2024 Discontinued (Reorder) Start: 07-02-2023 Blood Glucose Monitoring Suppl (True Metrix Air Glucose Meter) w/Device kit Indications: Type 2 diabetes mellitus without complication, without long-term current use of insulin (HCC) 1 each Daily 1 kit 07/02/2023 Active [...] complication, without long-term current use of insulin (CMS/HCC) 1 each Daily 1 kit 07/02/2023 Active busPIRone hydrochloride 30 mg oral tablet (20 sources) Start: 06-04-2021 take 1 tablet by mouth twice daily Buspirone 30 mg tablet Active 30 MG PO Twice daily June 04, 2021 1:00am Complies with drug therapy Calcium Citrate + D 315-200 MG-UNIT (6 sources) take 1 tablet by mouth twice daily Calcium Citrate + D 315-200 MG-UNIT 1 tablet Orally Twice a day Active cariprazine 6 mg oral capsule (20 sources) Atypical Antipsychotic Start: 11-29-2023 End: 03-06-2024 Vraylar 4.5 MG capsule 11/29/2023 02/19/2024 Discontinued Start: 08-15-2023 take 1 capsule by [facility] once daily Cariprazine 6 mg capsule Active 6 MG PO Daily August 15, 2023 12:00am Complies with drug therapy Vraylar Active cetirizine hydrochloride 10 mg oral tablet (20 sources) Histamine-1 Receptor Antagonist Start: 10-06-2019 take 1 tablet by mouth once daily Cetirizine (Zyrtec) 10 mg Tablet Active 10 MG PO Daily June 04, 2021 1:00am Complies with drug therapy Cetirizine HCl A ctive cholecalciferol 0.125 mg oral capsule (20 sources) Vitamin D Start: 11-26-2024 take 1 capsule by mouth once daily Cholecalciferol (Vitamin D3) 125 mcg (5,000 unit) capsule Active 6000 UNIT PO Daily November 26, 2024 9:50am Complies with drug therapy Start: 08-15-2023 End: 11-26-2024 take 1 capsule by mouth once daily Cholecalciferol (Vitamin D3) 125 mcg (5,000 unit) capsule Discontinued 125 MCG PO Daily August 15, 2023 12:00am November 26, 2024 9:50am take 1 capsule by [facility] in the morning cholecalciferol (Vitamin D-3) 125 MCG (5000 UT) capsule Take 5,000 Units by mouth in the morning. Active ciprofloxacin 500 mg oral tablet (13 sources) Quinolone Antimicrobial Start: 12-05-2023 End: 12-15-2023 [...] products docusate sodium 50 mg / sennosides, residential 8.6 mg oral tablet (20 sources) take [...] Peroxisome Proliferator Receptor alpha Agonist Start: 12-05-2019 End: 12-16-2023 take 1 tablet by mouth once daily Fenofibrate Nanocrystallized 145 mg tablet Active 145 MG PO Daily June 04, 2021 1:00am Complies with drug therapy Fenofibrate Acti ve fluconazole 150 mg oral tablet (5 sources) Azole Antifungal Start: 12-18-2023 End: 02-19-2024 fluconazole (Diflucan) 150 MG tablet Indications: Antibiotic-induced yeast infection 1 dose, repeat in 72 hours 2 tablet 12/18/2023 02/19/2024 Discontinued FLUoxetine 20 mg oral capsule (20 sources) Serotonin Reuptake Inhibitor Start: 08-21-2024 take 1 capsule by mouth once daily FLUoxetine (PROzac) 40 MG capsule Take 40 mg by mouth Daily 08/21/2024 Active Start: 10-10-2023 End: 09-03-2024 FLUoxetine (PROzac) 20 MG ca psule Take 20 mg by mouth Daily TAKE 1 CAPSULE BY MOUTH ONCE DAILY TAKE WITH 40 MG FOR A TOTAL OF 60 MG DAILY 10/09/2024 Active Start: 10-01-2023 End: 10-16-2023 take 1 capsule by mouth once daily Fluoxetine 10 mg capsule Discontinued 10 MG PO Daily October 01, 2023 12:00am October 16, 2023 1:08pm fluticasone propionate 0.05 mg/actuat metered dose nasal spray (20 sources) Corticosteroid Start: 10-24-2023 take 2 spray(s) nasal route once daily fluticasone (Flonase) 50 MCG/ACT nasal spray Indications: Seasonal allergies Administer 2 sprays into each nostril Daily 16 g 5 10/24/2023 Active Start: 06-04-2021 End: 10-16-2023 Fluticasone Propionate 50 mc g/actuation spray,suspension Active 2 SPRAY INTRANASAL Daily as needed for allergy symptoms October 16, 2023 1:10pm Complies with drug therapy Fluticasone Prop ionate Active gabapentin 600 mg oral tablet (20 sources) Anti-epileptic Agent Start: 10-23-2023 End: 08-24-2024 take 1 tablet by mouth twice daily as needed gabapentin (Neurontin) 600 MG tablet Indications: Restless leg syndrome Take 1 tablet (600 mg) by mouth 2 (two) times a day as needed (RLS) 60 tablet 2 07/25/2024 Active Start: 10-02-2023 End: 10-16-2023 take 1 tablet by mouth every eight hours as needed Gabapentin 600 mg tablet Active 600 MG PO Every 8 hours as needed for restless leg(s) October 16, 2023 1:10pm Complies with drug therapy Start: 08-15-2023 End: 10-02-2023 take 1 tablet by mouth every six hours Gabapentin 600 mg tablet Discontinued 600 MG PO Every 6 hours August 15, 2023 12:00am October 02, 2023 10:34am Start: 11-10-2021 take 1 tablet by [facility] every twelve hours Gabapentin 600 MG 1 tablet Orally TWICE A DAY for 20 days Oct, Active Start: 11-10-2021 take 2 tablets by [facility] every twelve hours Gabapentin 600 MG 2 tablets Orally bid for 20 days Oct, Active Start: 09-29-2021 take 1-2 capsules by mouth twice daily Gabapentin 300 MG 1-2 capsule Orally twice a day for 30 day(s) Sep, Active Start: 12-05-2019 take 1 capsule by [facility] every twenty-four hours Gabapentin 300 MG 1 capsule Orally Once a day for 30 day(s) Nov, Active hydroCHLOROthiazide 12.5 mg oral tablet (1 source) Thiazide Diuretic take 1 tablet by mouth every twenty-four hours hydroCHLOROthiazide 12.5 MG 1 tablet in the morning Orally Once a day Active 24 hr isosorbide mononitrate 30 mg extended release oral tablet (20 sources) Nitrate Vasodilator Start : 03-12 take 1 tablet by mouth every twenty-four hours Isosorbide Mononitrate 30 mg tablet extended release 24 hr Active MG PO March 12, 2024 1:00am Complies with drug therapy Start: 06-04-2021 End: 10-02-2023 take 1 tablet by mouth once daily, then take 1 tablet by mouth every twenty-four hours Isosorbide Mononitrate 30 mg tablet extended release 24 hr Discontinued 30 MG PO Daily June 04, 2021 1:00am October 02, 2023 10:56am take 1 tablet by [facility] every twenty-four hours Isosorbide Mononitrate 10 MG 1 tablet Orally once a day for 30 day(s) Active magnesium oxide 400 mg oral tablet [...] succinate 25 mg extended release oral tablet (17 sources) beta-Adrenergic Seema Start: 06-04-2021 take 2 tablets by mouth once daily Metoprolol Succinate 25 mg tablet extended release 24 hr Active 12.5 MG PO Daily June 04, 2021 1:00am Complies with drug therapy Start: 06-04-2021 take 12.5 mg by mouth once wander ly Metoprolol Succinate Active 12.5 MG PO Daily June 04, 2021 1:00am take 0.5 tablet by m outh once daily Toprol XL 25 MG 1/2 tablet Orally [...] sublingual tablet (20 sources) Nitrate Vasodilator Start: 03-12-20 Nitroglycerin 0.4 mg tablet, sublingual Active 0.4 MG SUBLINGUAL every 5 to 15 minutes as needed March 12, 2024 1:00am Complies with drug therapy Start: 12-18-2023 nitroglycerin (Nitrostat) 0.[address] [...] (Therapy completed) pioglitazone 45 mg oral tablet (20 sources) Peroxisome Proliferator Receptor alpha Agonist, Peroxisome Proliferator Receptor gamma Agonist, Thiazolidinedione Start: 08-15-2023 take 1 tablet by mouth once daily Pioglitazone (Actos) 45 mg tablet Active 45 MG PO Daily August 15, 2023 12:00am Complies with drug therapy Start: 06-04-2021 End: 08-15-2023 Pioglitazone 30 mg tablet Discontinued 45 MG PO Daily June 04, 2021 1:00am August 15, 2023 10:05am Start: 06-04-2021 End: 05-01-2024 take 45 mg by mouth once daily Pioglitazone Discontinu ed 45 MG PO Daily June 04, 2021 1:00am August 15, 2023 10:05am take 1 tablet by brandin [facility] every twenty-four hours Actos 45 MG 1 tablet Orally Once a day Active Pioglitazone HCl Active Potassium (6 sources) Potassium Active rOPINIRole 0.25 mg oral tablet (20 sources) Nonergot Dopamine Agonist Start: 03-12-2024 End: 02-21-2025 take 1 tablet by mouth at bedtime rOPINIRole (Requip) 0.25 MG tablet Indications: Restless leg syndrome Take 1 tablet (0.25 mg) by mouth at bedtime 90 tablet 11/23/2024 02/21/2025 Active Start: 10-24-2023 End: 01-17-2024 take 1 [...] 16, 2023 1:24pm Complies with drug therapy sacubitril-valsa rtan (Entresto) 49-51 MG tablet Take 0.5 tablets by mouth in the morning and 0.5 tablets before bedtime. Pt is to take 1/2 tab in morning and 1/2 tab at night to equal 1 tab per day. Active Tirzepatide (2 sources) Start: 03-12-2024 Tirzepatide (M ounjaro) 7.5 mg/0.5 mL pen injector Active 7.5 MG SUBCUT every week March 12, 2024 1:00am Complies with drug therapy Start: 03-12-2024 Tirzepatide (Mounjaro) 5 MG/0.5ML solution pen-injector (2 [...] spasms 90 tablet 1 09/02/2024 Active Start: 08-15-2023 End: 06-26-2024 take 1 tablet by mouth every eight hours as needed for muscle spasms and muscle spasms tiZANidine (Zanaflex) 4 MG tablet Indications: Muscle spasm Take 1 tablet (4 mg) by mouth every 8 (eight) hours if needed for muscle spasms 90 tablet 2 05/27/2024 Active Start: 06-04-2021 End: 08-13-2021 take 1 tablet by mouth at bedtime Tizanidine 4 mg tablet Discontinued 4 MG PO Bedtime June 04, 2021 1:00am August 13, 2021 2:52pm Start: 06-04-2021 End: 08-13-2021 take 4 mg by mouth at bedtime Tizanidine Discontinued 4 MG PO Bedtime June 04, 2021 1:00am August 13, 2021 2:52pm tiZANidine HCl A ctive Vitamin D3 5000 UNIT (12 [...] carvedilol 25 mg oral tablet (1 source) alpha-Adrenergi c Seema, beta-Adrenergic Seema take 1 tablet by mouth every twelve hours Carvedilol 25 MG 1 tablet Orally BID for 30 Not-Taking cyclobenzaprine hydrochloride 10 mg oral tablet (10 sources) Muscle Relaxant Start: 08-13-2021 End: 06-24-2022 take 1 tablet by mouth three times daily as needed for muscle spasms Cyclobenzaprine 10 mg tablet Discontinued 10 MG PO Three times daily as needed for back spasms August 13, 2021 12:00am June 24, 2022 6:53pm doxycycline hyclate 100 mg oral capsule (1 source) Tetracycline-cl ass Drug take 1 capsule by mouth every twelve hours Doxycycline Hyclate 100 MG 1 capsule Orally Twice a day for 30 Not-Taking furosemide 20 mg oral tablet (20 sources) Loop Diuretic Start: 04-30-2023 End: 11-26-2024 take 1 tablet by mouth once daily Furosemide (Lasix) 20 mg tablet Discontinued 20 MG PO Daily August 15, 2023 12:00am November 26, 2024 9:42am take 1 tablet by [facility] every twenty-four hours Lasix 20 MG 1 tablet Orally Once a day Active glipiZIDE 5 mg oral tablet (20 sources) Sulfonylurea Start: 06-04-2021 End: 08-15-2023 take 1 tablet by mouth once daily Glipizide 5 mg tablet Discontinued 5 MG PO Daily June 04, 2021 1:00am August 15, 2023 10:08am take 0.5 tablet by mouth once da kaiden glipiZIDE 5 MG 1/2 tablet Orally Once a day Active lamoTRIgine 200 mg oral tablet (11 sources) Mood Stabilizer, Anti-epileptic Agent Start: 08-15-2023 End: 03-12-2024 take 1 tablet by mouth once daily Lamotrigine (Lamictal) 200 mg tablet Discontinued 200 MG PO Daily August 15, 2023 12:00am March 12, 2024 10:32am take 1 tablet by brandin th every twenty-four hours LaMICtal 200 MG 1 tablet Orally Once a day Active lidocaine 0.05 mg/mg medicated patch (8 sources) Antiarrhythmic, Amide Local Anesthetic Start: 06-24-2022 End: 08-15-2023 apply 1 dose topically once daily as needed for pain Lidocaine 5 % adhesive patch,medicated Discontinued 1 PATCH TOPICAL Daily as needed for pain June 24, [...] Enzyme Inhibitor Start: 06-04-2021 End: 08-15-2023 take 1 tablet by mouth once daily Lisinopril 40 mg tablet Discontinued 40 MG PO Daily June 04, 2021 1:00am August 15, 2023 10:09am methylPREDNISolone 4 mg oral tablet (8 sources) Corticosteroid Start: 06-24-2022 End: 08-15-2023 Methylprednisolone 4 mg tablets,dose pack Discontinued 0 PO .COMPLEX June 24, 2022 1:00am August 15, 2023 10:09am orally per package directions Start: 06-24-2022 End: 08-15-2023 Methylprednisolone Discontin ued 0 PO .COMPLEX June 24, 2022 1:00am August 15, 2023 10:09am orally per package directions Start: 06-24-2022 Methylpredniso lone Active 0 PO .COMPLEX June 24, 2022 1:00am orally per package directions Start: 06-24-2022 Methylpredniso lone Active 0 PO .COMPLEX June 24, 2022 12:00am orally per package directions mirtazapine 15 mg oral tablet (11 sources) Start: 06-04-2021 End: 08-15-2023 take 2 tablets by mouth at bedtime Mirtazapine 15 mg tablet Discontinued 30 MG PO Bedtime June 04, 2021 1:00am August 15, 2023 10:11am Start: 06-04-2021 End: 08-15-2023 take 30 mg by mouth at bedtime Mirtazapine Discontinue d 30 MG PO Bedtime June 04, 2021 1:00am August 15, 2023 10:11am Mirtazapine [facility], 2129 Active mometasone furoate 0.05 mg/actuat metered dose nasal spray (5 sources) Corticosteroid Start: 10-01-2023 End: 10-16-2023 take [...] Active oxyCODONE hydrochloride 5 mg oral tablet (10 sources) Opioid Agonist Start: 08-13-2021 End: 06-24-2022 take 5-10 mg by mouth every six hours as needed for pain Oxycodone 5 mg Tablet Discontinued 5 - 10 MG PO Q6H as needed for Pain 50 8 August 13, 2021 June 24, 2022 6:53pm pramipexole dihydrochloride 0.25 mg oral tablet (5 sources) Nonergot Dopamine Agonist Start: 10-01-2023 End: 10-16-2023 take 1 tablet by mouth once daily at bedtime Pramipexole 0.25 mg tablet Discontinued 0.25 MG PO Daily at bedtime October 01, 2023 12:00am October 16, 2023 1:12pm predniSONE 10 mg oral tablet (10 sources) Start: 08-13-2021 End: 06-24-2022 Prednisone 10 mg tablets,dose pack Discontinued 1 dose pk PO per package directions August 13, 2021 12:00am June 24, 2022 6:53pm take 4 tabs for 3 days then take 3 tabs for 3 days then take 2 tabs for 3 days then take 1 tab for 3 days Start: 08-13-2021 End: 06-24-2022 Prednisone Discontinued 1 do se pk PO per package directions August 13, [...] 3 days spironolactone 25 mg oral tablet (16 sources) Aldosterone Antagonist Start: 10-01-2023 End: 10-02-2023 take 1 tablet by mouth once daily Spironolactone 25 mg tablet Discontinued 25 MG PO Daily October 01, 2023 12:00am October 02, 2023 10:55am On Hold: Until cleared by Nephrology Start: 06-04-2021 take 50 mg by mouth once daily Spironolactone Active 50 MG PO Daily June 04, 2021 1:00am Spironolactone A ctive Tirzepatide (5 sources) Start: 10-01-2023 End: 10-16-2023 Tirzepatide (Mounjaro) 2.5 m g/0.5 mL pen injector Discontinued 2.5 MG SUBCUT .weekly October 01, 2023 12:00am October 16, 2023 1:12pm Start: 10-01-2023 Tirzepatide (M ounjaro) 2.5 mg/0.5 mL pen injector Active 2.5 MG SUBCUT .weekly October 01, 2023 12:00am Tirzepatide (6 sources) Start: 03-12-2024 End: 03-12-2024 Tirzepatide (Mounjaro) 5 mg/ 0.5 mL pen injector Discontinued 7.5 MG SUBCUT every week March 12, 2024 10:32am March 12, 2024 10:38am Start: 10-16-2023 End: 03-12-2024 Tirzepatide (Mounjaro) 5 mg/ 0.5 mL pen injector Discontinued 5 MG SUBCUT every week October 16, 2023 12:00am March 12, 2024 10:38am Start: 10-16-2023 Tirzepatide (M ounjaro) 5 mg/0.5 mL pen injector Active 5 MG SUBCUT every week October 16, 2023 12:00am Triamcinolone (3 sources) Corticosteroid Start: 10-01-2023 End: 10-16-2023 Triamcinolone Acetonide Disc ontinued 110 MCG INTRANASAL Daily October 01, 2023 12:00am October 16, 2023 1:12pm Start: 10-01-2023 Triamcinolone Acetonide Active 110 MCG INTRANASAL Daily October 01, 2023 12:00am Triamcinolone Acetonide 55 mcg/actuation aerosol (2 sources) Start: 10-01-2023 End: 10-16-2023 Triamcinolone Acetonide 55 mcg/actuation aerosol Discontinued 110 MCG INTRANASAL Daily October 01, 2023 12:00am October 16, 2023 1:12pm vitamin b12 2.5 mg sublingual tablet (20 sources) Vitamin B12 Start: 11-26-2024 End: 11-26-2024 take 1 tablet under the tongue once daily Cyanocobalamin (Vitamin B-12) 2,500 mcg tablet, sublingual Discontinued 2500 MCG SUBLINGUAL Daily November 26, 2024 9:41am November 26, 2024 9:48am Start: 03-12-2024 End: 11-26-2024 Cyanocobalamin (Vitamin B-12 ) 2,500 mcg tablet, sublingual Active 2500 MCG SUBLINGUAL Every 48 hours November 26, 2024 9:48am Complies with drug therapy Start: 10-01-2023 End: 03-12-2024 take 1 tablet under the tongue once daily Cyanocobalamin (Vitamin B-12) 2,500 mcg tablet, sublingual Discontinued 2500 MCG SUBLINGUAL Daily October 01, 2023 12:00am March 12, 2024 10:47am Start: 10-06-2019 take 1 tablet by brandin [...] Classification Problem Date Documented Da te Episodic/Chronic Acute and unspecified renal failure (20 sources) Acute renal failure syndrome; Translations: [Acute kidney failure, unspecified] Onset: 4 10-10-2023 Episodic Allergic reactions (12 sources) Environmental [...] Coronary arteriosclerosis; Translations: [Atherosclerotic heart disease of elim ira coronary artery without angina pectoris] Onset: 3 [...] unspecified chronic kidney disease] Onset: 4 Chronic Malaise and fatigue (20 sources) Decline in functional status; Translations: [Other malaise] Onset: 4 Resolved: 4 08-10-2021 Episodic Mood disorders (20 sources) Bipolar disorder, unspecified; Translations: [Depressive disorder] Onset: 2 Resolved: 4 04-30-2023 Chronic Nonspecific chest pain (20 sources) Chest pain; Translations: [Other chest pain] Onset: 3 06-04-2021 Episodic Nutritional deficiencies (20 sources) Vitamin D deficiency; Translations: [Vitamin D deficiency, unspecified] Onset: 4 10-10-2023 Chronic Other aftercare (1 source) half-way (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; Translations: [SHELTER CURRENT USE OF ASPIRIN] Onset: 3 Episodic Other aftercare (1 source) shaper and presser (current) use of oral hypoglycemic drugs; Translations: [SHELTER USE ORAL HYPOGLYCEMIC DX] Onset: 3 Episodic Other aftercare (1 source) Other station cashier (current) drug therapy; Translations: [OTH SHELTER CURRENT DRUG THERAPY] Onset: 3 Episodic Other [...] Chronic Other nutritional; endocrine; and metabolic disorders (13 sources) Morbid obesity; Translations: [Morbid (severe) obesity [...] (BMI) of 45.0 to 49.9 in adult ([facility])] Onset: 4 02-19-2024 Chronic Other nutritional; endocrine; and metabolic disorders (11 sources) Obesity caused by energy imbalance; Translations: [Morbid (severe) obesity due to excess calories] Onset: 4 12-05-2023 Chronic Other nutritional; endocrine; and metabolic disorders (20 sources) Hyperuricemia; Translations: [Hyperuricemia without signs of inflammatory arthritis and tophaceous disease] Onset: 4 10-10-2023 Episodic Other upper respiratory disease (20 sources) [...] APNEA] Onset: 3 Chronic Residual codes; unclassified (7 sources) Localized edema; Translations: [Localized edema] 07-11-2023 Episodic Spondylosis; intervertebral disc disorders; other back problems (20 sources) Intervertebral disc prolapse; Translations: [Other intervertebral disc displacement, thoracolumbar region] Onset: 2 Resolved: 5 Chronic Spondylosis; intervertebral disc disorders; other back problems (20 sources) Radiculopathy, lumbar region; Translations: [Chronic low back pain] Onset: 2 Resolved: 2 Episodic Syncope (2 sources) Syncope and collapse; [...] quadrant pain] Onset: 02-21-2022 Resolved: 09-03-2024 Episodic Calculus of urinary tract (20 sources) [...] diarrhea] Onset: 12-25-2021 Resolved: 07-02-2023 07-02-2023 Episodic Mood disorders (20 sources) Mood disorders [...] muscle spasm] Onset: 07-24-2023 07-24-2023 Episodic Other connective tissue disease (20 sources) Foot pain; Translations: [Pain in left [...] 07-02-2023 07-02-2023 Episodic Other non-traumatic joint disorders (20 sources) Acute ankle pain; Translations: [Pain in [...] conditions] Onset: 07-02-2023 Resolved: 09-03-2024 07-02-2023 Episodic Unclassified (1 source) CONTACT W/AND (SUSP) EXPOS COVID-19; Translations: [CONTACT W/AND (SUSP) EXPOS COVID-19] Onset: 12-21-2021 Urinary tract infections (20 sources) Escherichia coli urinary tract infection; Translations: [Urinary tract infection, site not specified] Onset: 07-05-2023 Resolved: 09-03-2024 07-05-2023 Episodic Results Test Name Value Interpretation Reference Range Facility 36 11-18-2024 36 Regarding stress derek t result from 11/13/2024: Tk Godoy MD to Me (Selected Message) EE 11/18/24 4:19 AM Please let her know her stress test is abnormal and I would recommend cardiac cath: CORS via L radial approach. Thanks Spoke with Sherly and made her aware. Lab orders faxed to [facility]. She verbalized understanding. Normal [facility] Albumin [Mass/volume] in Ser um or Plasma by Bromocresol green (BCG) dye binding methoOrdered By: Halle Mac on 11-18-2024 Albumin BCG dye [Mass/Vol] 4.1 g/dL 3.5-5.7 [facility] Appearance of UrineOrdered B y: Halle Mac on 11-18-2024 Appearance (U) Clear Normal Clear [facility] Comment on above: Order Comment: Name Collection Type:: Clean-Voided Midstream Performed By: #### V [id number], [id number], PROCRERAT, FE and TIBC, URIC, URMACRERAT, UA, MG, PTH, RENAL, CBCNO, GEENA #### [facility] [address] Bacteria [Presence] in Urine by AutomatedOrdered By: Halle Mac on 11-18-2024 Bacteria Auto Ql (U) None seen [HPF] None Seen [facility] Bilirubin Test strip Ql (U)O rdered By: Halle Mac on 11-18-2024 Bilirubin Ql (U) 1+ High Negative [facility] Calcium [Mass/volume] in Ser um or PlasmaOrdered By: Halle Mac on 11-18-2024 Calcium [Mass/Vol] 9.6 mg/dL Normal 8.6-10.3 [facility] Comment on above: Performed By: #### V [id number], [id number], PROCRERAT, FE and TIBC, URIC, URMACRERAT, UA, MG, PTH, RENAL, CBCNO, GEENA #### [facility] [address] Carbon dioxide, total [Moles /volume] in Serum or PlasmaOrdered By: Halle Mac on 11-18-2024 CO2 [Moles/Vol] 28.3 mmol/L Normal 21.0-31.0 [facility] Comment on above: Performed By: #### V [id number], [id number], PROCRERAT, FE and TIBC, URIC, URMACRERAT, UA, MG, PTH, RENAL, CBCNO, GEENA #### [facility] [address] [place] [id number] [place] Chloride [Moles/volume] in S brunilda or PlasmaOrdered By: Halle Mac on 11-18-2024 Chloride [Moles/Vol] 111 mmol/L High 98-107 [facility] Comment on above: Performed By: #### V [id number], [id number], PROCRERAT, FE and TIBC, URIC, URMACRERAT, UA, MG, PTH, RENAL, CBCNO, GEENA #### [facility] [address] Color of Urine by AutoOrdere d By: Halle Mac on 11-18-2024 Color (U) Yellow Normal Yellow [facility] Comment on above: Order Comment: Name Collection Type:: Clean-Voided Midstream Performed By: #### V [id number], [id number], PROCRERAT, FE and TIBC, URIC, URMACRERAT, UA, MG, PTH, RENAL, CBCNO, GEENA #### [facility] [address] Creatinine [Mass/volume] in Serum or PlasmaOrdered By: Halle Mac on 11-18-2024 Creatinine [Mass/Vol] 1.38 mg/dL High 0.60-1.20 [facility] Comment on above: Performed By: #### V [id number], [id number], PROCRERAT, FE and TIBC, URIC, URMACRERAT, UA, MG, PTH, RENAL, CBCNO, GEENA #### [facility] [address] Creatinine [Mass/volume] in UrineOrdered By: Halle Mac on 11-18-2024 Creatinine (U) [Mass/Vol] 270.00 mg/dL [facility] Comment on above: No reference range e stablished Dipstick and Microscopicon 0 11-18-2024 Bacteria,Urine None Seen Normal None Seen [facility] Comment on above: Order Comment: Name Collection Type:: Clean-Voided Midstream Performed By: #### V [id number], [id number], PROCRERAT, FE and TIBC, URIC, URMACRERAT, UA, MG, PTH, RENAL, CBCNO, GEENA #### [facility] [address] Bilirubin,Urine 1+ Normal Negative [facility] Comment on above: Order Comment: Name Collection Type:: Clean-Voided Midstream Performed By: #### V [id number], [id number], PROCRERAT, FE and TIBC, URIC, URMACRERAT, UA, MG, PTH, RENAL, CBCNO, GEENA #### [address] Glucose Ql (U) Normal Normal Normal [facility] Comment on above: Order Comment: Name Collection Type:: Clean-Voided Midstream Performed By: #### V [id number], [id number], PROCRERAT, FE and TIBC, URIC, URMACRERAT, UA, MG, PTH, RENAL, CBCNO, GEENA #### [address] Hyaline Casts,Urine 9-19 Normal 0-8 [facility] Comment on above: Order Comment: Name Collection Type:: Clean-Voided Midstream Performed By: #### V [id number], [id number], PROCRERAT, FE and TIBC, URIC, URMACRERAT, UA, MG, PTH, RENAL, CBCNO, GEENA #### [address] Mucus,Urine Rare Normal [facility] Comment on above: Order Comment: Name Collection Type:: Clean-Voided Midstream Result Comment: PERF ORMED BY: [place] [address] PATHOLOGIST SUMO WRESTLER KRISHAN PAEZ M.D. Performed By: #### V [id number], [id number], PROCRERAT, FE and TIBC, URIC, URMACRERAT, UA, MG, PTH, RENAL, CBCNO, GEENA #### [address] Nitrite,Urine Negative Normal Negative [facility] Comment on above: Order Comment: Name Collection Type:: Clean-Voided Midstream Performed By: #### V [id number], [id number], PROCRERAT, FE and TIBC, URIC, URMACRERAT, UA, MG, PTH, RENAL, CBCNO, GEENA #### [address] Occult Blood,Urine Negative Normal Negative [facility] Comment on above: Order Comment: Name Collection Type:: Clean-Voided Midstream Result Comment: PERF ORMED BY: [place] [address] PATHOLOGIST SUMO WRESTLER KRISHAN PAEZ M.D. Performed By: #### V [id number], [id number], PROCRERAT, FE and TIBC, URIC, URMACRERAT, UA, MG, PTH, RENAL, CBCNO, GEENA #### [address] Protein,Urine Trace Normal Negative [facility] Comment on above: Order Comment: Name Collection Type:: Clean-Voided Midstream Performed By: #### V [id number], [id number], PROCRERAT, FE and TIBC, URIC, URMACRERAT, UA, MG, PTH, RENAL, CBCNO, GEENA #### [address] RBC,Urine 1-2 Normal 0-4 [facility] Comment on above: Order Comment: Name Collection Type:: Clean-Voided Midstream Performed By: #### V [id number], [id number], PROCRERAT, FE and TIBC, URIC, URMACRERAT, UA, MG, PTH, RENAL, CBCNO, GEENA #### [address] Specificy [place],Urine 1.038 High 1.001-1.030 [facility] Comment on above: Order Comment: Name Collection Type:: Clean-Voided Midstream Performed By: #### V [id number], [id number], PROCRERAT, FE and TIBC, URIC, URMACRERAT, UA, MG, PTH, RENAL, CBCNO, GEENA #### [address] Squamous Epithelial Cell,Urine 1-2 Normal 0-2 [facility] Comment on above: Order Comment: Name Collection Type:: Clean-Voided Midstream Performed By: #### V [id number], [id number], PROCRERAT, FE and TIBC, URIC, URMACRERAT, UA, MG, PTH, RENAL, CBCNO, GEENA #### [address] Urobilinogen,Urine 2 mg/dL Normal Normal [facility] Comment on above: Order Comment: Name Collection Type:: Clean-Voided Midstream Performed By: #### V [id number], [id number], PROCRERAT, FE and TIBC, URIC, URMACRERAT, UA, MG, PTH, RENAL, CBCNO, GEENA #### [address] WBC,Urine 1-2 Normal 0-4 [facility] Comment on above: Order Comment: Name Collection Type:: Clean-Voided Midstream Performed By: #### V [id number], [id number], PROCRERAT, FE and TIBC, URIC, URMACRERAT, UA, MG, PTH, RENAL, CBCNO, GEENA #### [address] Epithelial cells.squamous [# /area] in Urine sediment by Automated countOrdered By: Halle Mac on 11-18-2024 Epithelial cells.squamous Auto (Urine sed) [#/Area] 1-2 [HPF] 0-2 [facility] Erythrocyte distribution wid th [Ratio] by Automated countOrdered By: Halle Mac on 11-18-2024 Erythrocyte distribution width (RBC) [Ratio] 13.9 % Normal 11.9-15.3 [facility] Comment on above: Performed By: #### V [id number], [id number], PROCRERAT, FE and TIBC, URIC, URMACRERAT, UA, MG, PTH, RENAL, CBCNO, GEENA #### [address] Erythrocytes [#/area] in Uri ne sediment by Automated countOrdered By: Halle Mac on 11-18-2024 RBC Auto (Urine sed) [#/Area] 1-2 [HPF] 0-4 [facility] Erythrocytes [#/volume] in B lood by Automated countOrdered By: Halle Mac on 11-18-2024 RBC (Bld) [#/Vol] 3.67 10*6/uL Normal 3.60-5.00 [facility] Comment on above: Performed By: #### V [id number], [id number], PROCRERAT, FE and TIBC, URIC, URMACRERAT, UA, MG, PTH, RENAL, CBCNO, GEENA #### [facility] [address] [place] [address] [place] Ferritin [Mass/volume] in Se rum or PlasmaOrdered By: Halle Mac on 11-18-2024 Ferritin [Mass/Vol] 235.3 ng/mL Normal 11.0-306.8 [facility] Comment on above: Performed By: #### V [id number], [id number], PROCRERAT, FE and TIBC, URIC, URMACRERAT, UA, MG, PTH, RENAL, CBCNO, GEENA #### [facility] [address] Folate [Mass/volume] in Seru m or PlasmaOrdered By: Halle Mac on 11-18-2024 Folate [Mass/Vol] 9.8 ng/mL >5.9 [facility] Comment on above: Folate reference ran ge: >5.9 ng/mlThe WHO technical consultation on folate and vitamin [id number] has determined that folate concentrations lessthan 4 ng/ml are considered deficient. Glucose [Mass/volume] in Ser um or PlasmaOrdered By: Halle Mac on 11-18-2024 Glucose [Mass/Vol] 88 mg/dL Normal 70-100 [facility] Comment on above: ADA recommended refe rence rangeRandom Glucose Reference Range is dependent on time and content of last meal. Glucose of more than 200 mg/dL in a nonstressed, ambulatory subject supports the diagnosis of Diabetes Mellitus. Result Comment: [place] Glucose Reference Range is dependent on time and content of last meal. Glucose of more than 200 mg/dL in a nonstressed, ambulatory subject supports the diagnosis of Diabetes Mellitus. ADA recommended reference range Performed By: #### V [id number], [id number], PROCRERAT, FE and TIBC, URIC, URMACRERAT, UA, MG, PTH, RENAL, CBCNO, GEENA #### [facility] [address] Glucose [Mass/volume] in Uri ne by Test stripOrdered By: Halle Mac on 11-18-2024 Glucose Test strip (U) [Mass/Vol] Normal mg/dL Normal [facility] Hematocrit [Volume Fraction] of Blood by Automated countOrdered By: Halle Mac on 11-18-2024 Hematocrit (Bld) [Volume fraction] 33.1 % Low 34.0-46.4 [facility] Comment on above: Performed By: #### V [id number], [id number], PROCRERAT, FE and TIBC, URIC, URMACRERAT, UA, MG, PTH, RENAL, CBCNO, GEENA #### [facility] [address] Hemoglobin Test strip Ql (U) Ordered By: Halle Mac on 11-18-2024 Hemoglobin Ql (U) Negative Negative [facility] Hemoglobin [Mass/volume] in BloodOrdered By: Halle Mac on 11-18-2024 Hemoglobin (Bld) [Mass/Vol] 10.8 g/dL Low 11.8-15.4 [facility] Comment on above: Performed By: #### V [id number], [id number], PROCRERAT, FE and TIBC, URIC, URMACRERAT, UA, MG, PTH, RENAL, CBCNO, GEENA #### [facility] [address] [place] [id number] [facility] Hemogram CBC Without Diffon 11-18-2024 Mean Corpuscular HGB Conc 32.7 g/dL Normal 32.0-35.0 [facility] Comment on above: Performed By: #### V [id number], [id number], PROCRERAT, FE and TIBC, URIC, URMACRERAT, UA, MG, PTH, RENAL, CBCNO, GEENA #### [facility] [address] White Blood Count 9.7 [CFU]/mL Normal 3.8-11.6 [facility] Comment on above: Performed By: #### V [id number], [id number], PROCRERAT, FE and TIBC, URIC, URMACRERAT, UA, MG, PTH, RENAL, CBCNO, GEENA #### [facility] [address] Hyaline casts [#/area] in Ur ine sediment by Automated countOrdered By: Halle Mac on 11-18-2024 Hyaline casts Auto (Urine sed) [#/Area] 9-19 [LPF] High 0-8 [facility] Iron [Mass/volume] in Serum or PlasmaOrdered By: Halle Mac on 11-18-2024 Iron [Mass/Vol] 64 ug/dL Normal 50-212 [facility] Comment on above: Performed By: #### V [id number], [id number], PROCRERAT, FE and TIBC, URIC, URMACRERAT, UA, MG, PTH, RENAL, CBCNO, GEENA #### [address] Iron and TIBC Profileon 08 % Iron Saturation 15.4 % Low 20-50 [facility] Comment on above: Performed By: #### V [id number], [id number], PROCRERAT, FE and TIBC, URIC, URMACRERAT, UA, MG, PTH, RENAL, CBCNO, GEENA #### [facility] [address] Total Iron Binding Capacity 416 ug/dL Normal 255-450 [facility] Comment on above: Performed By: #### V [id number], [id number], PROCRERAT, FE and TIBC, URIC, URMACRERAT, UA, MG, PTH, RENAL, CBCNO, GEENA #### [facility] [address] [place] [address] [place] Ketones [Presence] in Urine by Test stripOrdered By: Halle Mac on 11-18-2024 Ketones Ql (U) Negative Normal Negative [facility] Comment on above: Order Comment: Name Collection Type:: Clean-Voided Midstream Performed By: #### V [id number], [id number], PROCRERAT, FE and TIBC, URIC, URMACRERAT, UA, MG, PTH, RENAL, CBCNO, GEENA #### [facility] [address] [place] [address] [place] Leukocyte esterase [Presence ] in Urine by Test stripOrdered By: Halle Mac on 11-18-2024 Leukocyte esterase Test strip Ql (U) 3+ Normal Negative [facility] Comment on above: Order Comment: Name Collection Type:: Clean-Voided Midstream Performed By: #### V [id number], [id number], PROCRERAT, FE and TIBC, URIC, URMACRERAT, UA, MG, PTH, RENAL, CBCNO, GEENA #### [facility] [address] Leukocytes [#/area] in Urine sediment by Automated countOrdered By: Halle Mac on 11-18-2024 WBC Auto (Urine sed) [#/Area] 1-2 [HPF] 0-4 [facility] Leukocytes [#/volume] correc joaquin for nucleated erythrocytes in Blood by Automated counOrdered By: Halle Mac on 11-18-2024 WBC corrected for nucl RBC Auto (Bld) [#/Vol] 9.7 10*3/uL 3.8-11.6 [facility] MCH [Entitic mass] by Automa joaquin countOrdered By: Halle Mac on 11-18-2024 MCH (RBC) [Entitic mass] 29.5 pg Normal 24.7-34.3 [facility] Comment on above: Performed By: #### V [id number], [id number], PROCRERAT, FE and TIBC, URIC, URMACRERAT, UA, MG, PTH, RENAL, CBCNO, GEENA #### [facility] [address] MCHC Auto (RBC) [Mass/Vol]Or dered By: Halle Mac on 11-18-2024 MCHC (RBC) [Mass/Vol] 32.7 g/dL 32.0-35.0 [facility] MCV [Entitic volume] by Auto mated countOrdered By: Halle Mac on 11-18-2024 MCV (RBC) [Entitic vol] 90.3 fL Normal 80-100 [facility] Comment on above: Performed By: #### V [id number], [id number], PROCRERAT, FE and TIBC, URIC, URMACRERAT, UA, MG, PTH, RENAL, CBCNO, GEENA #### [facility] [address] Magnesium [Mass/volume] in S brunilda or PlasmaOrdered By: Halle Mac on 11-18-2024 Magnesium [Mass/Vol] 2.1 mg/dL Normal 1.9-2.7 [facility] Comment on above: Performed By: #### V [id number], [id number], PROCRERAT, FE and TIBC, URIC, URMACRERAT, UA, MG, PTH, RENAL, CBCNO, GEENA #### [facility] [address] MicroAlb Creat Ratio,Uon Creatinine, Urine (Random) 270.00 mg/dL Normal [facility] Comment on above: Result Comment: No r eference range established Performed By: #### V [id number], [id number], PROCRERAT, FE and TIBC, URIC, URMACRERAT, UA, MG, PTH, RENAL, CBCNO, GEENA #### [facility] [address] Microalbumin/Creatinin e Ratio 8.1 mg/g Normal 0.0-30.0 [facility] Comment on above: Result Comment: 30-3 00 mg/g indicates an increased risk for diabetic nephropathy. Greater than 300 mg/g is consistent with clinical nephropathy. (Am. J. Kidney Disease 1995, 25:107) Performed By: #### V [id number], [id number], PROCRERAT, FE and TIBC, URIC, URMACRERAT, UA, MG, PTH, RENAL, CBCNO, GEENA #### [facility] [address] Microalbumin [Mass/volume] i n UrineOrdered By: Halle Mac on 11-18-2024 Albumin DL <= 20 mg/L (U) [Mass/Vol] 2.2 mg/dL High 0.0-1.8 [facility] Comment on above: Performed By: #### V [id number], [id number], PROCRERAT, FE and TIBC, URIC, URMACRERAT, UA, MG, PTH, RENAL, CBCNO, GEENA #### [facility] [address] Mucus [Presence] in Urine by AutomatedOrdered By: Halle Mac on 11-18-2024 Mucus Auto Ql (U) Rare [LPF] [facility] Nitrite Test strip Ql (U)Ord ered By: Halle Mac on 11-18-2024 Nitrite Ql (U) Negative Negative [facility] No Panel InformationOrdered By: Halle Mac on 11-18-2024 Estimated GFR (CKD-EPI) 45.770 mL/Min [facility] Creatinine Clearance (Chem N/A [facility] Parathyrin.intact [Mass/volu me] in Serum or PlasmaOrdered By: Halle Mac on 11-18-2024 Parathyrin.intact [Mass/Vol] 25.6 pg/mL [facility] Parathyroid Hormone Intacton 11-18-2024 Parathyroid Hormone Intact 25.6 pg/mL Normal [facility] Comment on above: Result Comment: PERF ORMED BY: [place] [address] PATHOLOGIST SUMO WRESTLER KRISHAN PAEZ M.D. Performed By: #### V [id number], [id number], PROCRERAT, FE and TIBC, URIC, URMACRERAT, UA, MG, PTH, RENAL, CBCNO, GEENA #### [address] Phosphate [Mass/volume] in S brunilda or PlasmaOrdered By: Halle Mac on 11-18-2024 Phosphate [Mass/Vol] 3.5 mg/dL Normal 2.5-4.5 [facility] Comment on above: Performed By: #### V [id number], [id number], PROCRERAT, FE and TIBC, URIC, URMACRERAT, UA, MG, PTH, RENAL, CBCNO, GEENA #### [address] Platelet mean volume [Entiti c volume] in Blood by Automated countOrdered By: Halle Mac on 11-18-2024 Platelet mean volume (Bld) [Entitic vol] 9.4 fL Normal 6.3-10.7 [facility] Comment on above: Result Comment: PERF ORMED BY: [place] [address] PATHOLOGIST SUMO WRESTLER KRISHAN PAEZ M.D. Performed By: #### V [id number], [id number], PROCRERAT, FE and TIBC, URIC, URMACRERAT, UA, MG, PTH, RENAL, CBCNO, GEENA #### [address] Platelets [#/volume] in Bloo d by Automated countOrdered By: Halle Mac on 11-18-2024 Platelets (Bld) [#/Vol] 258 10*3/uL Normal 150-450 [facility] Comment on above: Performed By: #### V [id number], [id number], PROCRERAT, FE and TIBC, URIC, URMACRERAT, UA, MG, PTH, RENAL, CBCNO, GEENA #### [place] [address] [place] Potassium [Moles/volume] in Serum or PlasmaOrdered By: Halle Mac on 11-18-2024 Potassium [Moles/Vol] 4.6 mmol/L Normal 3.5-5.1 [facility] Comment on above: Performed By: #### V [id number], [id number], PROCRERAT, FE and TIBC, URIC, URMACRERAT, UA, MG, PTH, RENAL, CBCNO, GEENA #### [facility] [address] Protein Creat Ratio Ur Rando mon 11-18-2024 Urine Protein/Creatinine Ratio 85 mg/g{Cre} Normal 0-200 [facility] Comment on above: Result Comment: PERF ORMED BY: [place] [address] PATHOLOGIST SUMO WRESTLER KRISHAN PAEZ M.D. Performed By: #### V [id number], [id number], PROCRERAT, FE and TIBC, URIC, URMACRERAT, UA, MG, PTH, RENAL, CBCNO, GEENA #### [facility] [address] Protein Test strip (U) [Mass /Vol]Ordered By: Halle Mac on 11-18-2024 Protein (U) [Mass/Vol] Trace mg/dL High Negative [facility] Protein [Mass/volume] in Uri neOrdered By: Halle Mac on 11-18-2024 Protein (U) [Mass/Vol] 23 mg/dL High 0-9 [facility] Comment on above: Performed By: #### V [id number], [id number], PROCRERAT, FE and TIBC, URIC, URMACRERAT, UA, MG, PTH, RENAL, CBCNO, GEENA #### [facility] [address] [place] [id number] [facility] Renal Function Panelon 11-18 Albumin [Mass/Vol] 4.1 g/dL Normal 3.5-5.7 [facility] Comment on above: Performed By: #### V [id number], [id number], PROCRERAT, FE and TIBC, URIC, URMACRERAT, UA, MG, PTH, RENAL, CBCNO, GEENA #### [facility] [address] GFR/1.73 sq M.predicted MDRD (S/P/Bld) [Vol rate/Area] 45.770 mL/min/{1.73_m2} Normal [facility] Comment on above: Performed By: #### V [id number], PGLD36JB, PROCRERAT, FE and TIBC, URIC, URMACRERAT, UA, MG, PTH, RENAL, CBCNO, GEENA #### [facility] [address] Serum or plasma anion gap de terminationOrdered By: Halle Mac on 11-18-2024 Anion gap [Moles/Vol] 9.3 mmol/L Normal 6.0-15.0 [facility] Comment on above: Performed By: #### V [id number], RZWV47VT, PROCRERAT, FE and TIBC, URIC, URMACRERAT, UA, MG, PTH, RENAL, CBCNO, GEENA #### [facility] [address] Serum or plasma iron binding capacity measurement (mass/volume)Ordered By: Halle Mac on 11-18-2024 Iron binding capacity [Mass/Vol] 416 ug/dL 255-450 [facility] Serum or plasma iron saturat ion measurement (mass fraction)Ordered By: Halle Mac on 11-18-2024 Iron saturation [Mass fraction] 15.4 % Low 20-50 [facility] Sodium [Moles/volume] in Ser um or PlasmaOrdered By: Halle Mac on 11-18-2024 Sodium [Moles/Vol] 144 mmol/L Normal 136-145 [facility] Comment on above: Performed By: #### V [id number], [id number], PROCRERAT, FE and TIBC, URIC, URMACRERAT, UA, MG, PTH, RENAL, CBCNO, GEENA #### [facility] [address] [place] [id number] [facility] Specific gravity Test strip (U) [Rel density]Ordered By: Halle Mac on 11-18-2024 Specific gravity (U) [Rel density] 1.038 High 1.001-1.030 [facility] Telephoneon 11-18-2024 Telephone [phone] Nithin Humphreys 1970 F Date Provider Department Center 11/18/2024 Rogelio-NEO CODY [facility] Family History Problem Relation Age of Onset Cancer Mother Heart attack Father Family Status - Relation Status Age at Mother Father Normal [facility] Transferrin [Mass/volume] in Serum or PlasmaOrdered By: Halle Mac on 11-18-2024 Transferrin [Mass/Vol] 297 mg/dL Normal 203-362 [facility] Comment on above: Performed By: #### V [id number], [id number], PROCRERAT, FE and TIBC, URIC, URMACRERAT, UA, MG, PTH, RENAL, CBCNO, GEENA #### [facility] [address] [place] [id number] [place] Urate [Mass/volume] in Serum or PlasmaOrdered By: Halle Mac on 11-18-2024 Urate [Mass/Vol] 5.1 mg/dL Normal 2.3-6.6 [facility] Comment on above: Performed By: #### V [id number], [id number], PROCRERAT, FE and TIBC, URIC, URMACRERAT, UA, MG, PTH, RENAL, CBCNO, GEENA #### [facility] [address] [place] [id number] [place] Urea nitrogen [Mass/volume] in Serum or PlasmaOrdered By: Halle Mac on 11-18-2024 Urea nitrogen [Mass/Vol] 25 mg/dL Normal 7-25 [facility] Comment on above: Performed By: #### V [id number], IQBO32HC, PROCRERAT, FE and TIBC, URIC, URMACRERAT, UA, MG, PTH, RENAL, CBCNO, GEENA #### [facility] [address] Urine microalbumin/creatinin e mass ratioOrdered By: Halle Mac on 11-18-2024 Albumin/Creatinine DL <= 20 mg/L (U) [Mass ratio] 8.1 mg/g 0.0-30.0 [facility] Comment on above: 30-300 mg/g indicate s an increased risk for diabetic nephropathy. Greater than 300 mg/g is consistent with clinical nephropathy. (Am. J. Kidney Disease 1995, 25:107) Urine protein/creatinine rat ioOrdered By: Halle Mac on 11-18-2024 Protein/Creatinine (U) [Ratio] 85 mg/g{Cre} 0-200 [facility] Urobilinogen Test strip (U) [Mass/Vol]Ordered By: Halle Mac on 11-18-2024 Urobilinogen (U) [Mass/Vol] 2 mg/dL High Normal [facility] Vit. B12/Folate Profileon Folate 9.8 ng/mL Normal >5.9 [facility] Comment on above: Result Comment: Maria te reference range: >5.9 ng/ml The WHO technical consultation on folate and vitamin b12 deficiencies has determined that folate concentrations less than 4 ng/ml are considered deficient. Performed By: #### V [id number], [id number], PROCRERAT, FE and TIBC, URIC, URMACRERAT, UA, MG, PTH, RENAL, CBCNO, GEENA #### [facility] [address] Vitamin B12 ser/plasOrdered By: Halle Mac on 11-18-2024 Cobalamin (Vitamin B12) [Mass/Vol] 934 pg/mL High 180-914 [facility] Comment on above: Performed By: #### V [id number], [id number], PROCRERAT, FE and TIBC, URIC, URMACRERAT, UA, MG, PTH, RENAL, CBCNO, GEENA #### [facility] [address] Vitamin D 25 Hydroxy Totalon 11-18-2024 Vitamin D 25 Hydroxy Total 23.9 ng/mL Low 30-100 [facility] Comment on above: Result Comment: AWAIS MIN D STATUS 25(OH)VITAMIN D RANGE (ng/mL) Deficient <20 Insufficient 20 to <30 Sufficient 30 to 100 Reference: Nicole Almonte, Ed LI, et al. Evaluation,treatment, and prevention of vitamin D deficiency; an Endocrine Society clinical practice guideline. JCEM. 2010; 96(7):191-. PERFORMED BY: [address] [address] PATHOLOGIST SUMO WRESTLER KRISHAN PAEZ M.D. Performed By: #### V [id number], [id number], PROCRERAT, FE and TIBC, URIC, URMACRERAT, UA, MG, PTH, RENAL, CBCNO, GEENA #### [facility] [address] [place], [place] [id number] [facility] Vitamin D+Metabolites [Mass/ volume] in Serum or PlasmaOrdered By: Halle Mac on 11-18-2024 Vitamin D+Metabolites [Mass/Vol] 23.9 ng/mL Low 30-100 [facility] Comment on above: VITAMIN D STATUS 25( OH)VITAMIN D RANGE (ng/mL) Deficient <20 Insufficient 20 to <30Sufficient 30 to 100Reference: Nicole Almonte, Ed LI, et al. Evaluation,treatment, and prevention of vitamin D deficiency; an Endocrine Society clinical practice guideline. JCEM. 2010; 96(7):191-30. pH of Urine by Test stripOrd ered By: Halle Mac on 11-18-2024 pH (U) 5.0 [pH] Normal 5.0-9.0 [facility] Comment on above: Order Comment: Name Collection Type:: Clean-Voided Midstream Performed By: #### V [id number], EIUG99RM, PROCRERAT, FE and TIBC, URIC, URMACRERAT, UA, MG, PTH, RENAL, CBCNO, GEENA #### [facility] [address] [place] [id number] [facility] NM ROZ PERF SPECT REST STRon 11-17-2024 [facility] [address] [place] [address] Nuclear Medicine Report Signed Patient: SHERLY HUMPHREYS MR#: [id number] : 1970 Acct:[id number] Age/Sex: 53 / F ADM Date: 11/13/24 Loc: [place] Attending Dr: Tk Godoy M.D. Ordering Physician: Tk Godoy M.D. Date of Service: 11/13/24 Procedure(s): NM roz perf SPECT rest str Accession Number(s): [id number] cc: Janene Lew NP; Tk Godoy M.D. Patient Name: SHERLY HUMPHREYS MR#: [id number] : 1970 Exam Date: 11/13/2024 Ordering Doctor: DR TK GODOY M.D. RADIOLOGY REPORT PROCEDURE: NM ROZ PERF SPECT REST STR COMPARISON: None. INDICATIONS: [...] the study was pending per attending physician [facility] . For more details please see separate [...] Signed By: 11/17/24 1002 DD/ 1001 TD/TT: Health Services Administrator: [facility] Radiology, Radiologlawrence zimmerman MD - 11/17/2024 [place] [address] Nuclear Medicine Report Signed Patient: SHERLY HUMPHREYS MR#: [id number] : 1970 Acct:[id number] Age/Sex: 53 / F ADM Date: 11/13/24 Loc: [place] Attending Dr: Tk Godoy M.D. Ordering Physician: Tk Godoy M.D. Date of Service: 11/13/24 Procedure(s): NM roz perf SPECT rest str Accession Number(s): [id number] cc: Janene Lew FORESTRY TREE PRUNER; Tk Godoy M.D. Patient Name: SHERLY HUMPHREYS MR#: [id number] : 1970 Exam Date: 11/13/2024 Ordering Doctor: DR TK GODOY M.D. RADIOLOGY REPORT PROCEDURE: NM ROZ PERF SPECT REST STR COMPARISON: None. INDICATIONS: [...] the study was pending per attending physician [facility] . For more details please see separate [...] Signed By: 11/17/24 1002 DD/ 1001 TD/TT: Health Services Administrator: [facility] Radiology Study observation (narrative) [facility] NM ROZ PERF SPECT REST STROr dered By: Radiologist Radiology on 11-17-2024 [facility] Work Phone: Orders Onlyon 11-17-2024 Orders Only [id number] Nithin Humphreys 1970 [facility] 11/17/2024 [id number], HISTORICAL CARD [facility] Family History Problem Relation Age of Onset Cancer Mother Heart attack Father Family Status - Relation Status Age at Mother Father Normal [facility] HbA1c (Bld) [Mass fraction]o n 11-03-2024 Interpretation and review of laboratory results Normal [facility] - Hematology and Cell countson 11-03-2024 HbA1c (Bld) [Mass fraction] 5.2 % [facility] Office Visiton 10-16-2024 Follow-up visit [id number] Nithin Humphreys 1970 [facility] 10/16/2024 271-TK GODOY CARD [facility] Family History Problem Relation Age of Onset Cancer Mother Heart attack Father Family Status - Relation Status Age at Mother Father Level of Service:25010 [place] OFFICE/OUTPATIENT ESTABLISHED MOD MDM 30 MIN Normal [facility] ALL CBC WITH AUTO DIFFon BASOPHILS ABSOLUTE AUTO 0.1 [facility] Basophils/100 WBC (Bld) 1.1 % 0.2 - 2.0 % [facility] Eosinophils/100 WBC (Bld) 3.1 % 0.9 - 7.0 % [facility] Erythrocyte distribution width (RBC) [Ratio] 12.9 % 11.0 - 15.0 % [facility] Hematocrit (Bld) [Volume fraction] 33.2 % Low 36.0 - 48.0 % [facility] Hemoglobin (Bld) [Mass/Vol] 11.1 g/dL Low 12.0 - 16.0 g/dL [facility] IMMATURE GRANULOCYTES ABS AUTO 0.01 [facility] Immature granulocytes/100 WBC (Bld) 0.2 % 0.0 - 0.5 % [facility] Interpretation and review of laboratory results Abnormal [facility] LYMPHOCYTES ABSOLUTE AUTO 1.7 [facility] Lymphocytes/100 WBC (Bld) 38.2 % 20.5 - 60.0 % [facility] MCH (RBC) [Entitic mass] 30.1 pg 26.7 - 34.0 pg [facility] MCHC (RBC) [Mass/Vol] 33.4 g/dL 29.9 - 35.2 g/dL [facility] MCV (RBC) [Entitic vol] 90 fL 81.0 - 99.0 fL [facility] MONOCYTES ABSOLUTE AUTO 0.3 [facility] Monocytes/100 WBC (Bld) 7 % 1.7 - 12.0 % [facility] NEUTROPHILS ABSOLUTE AUTO 2.2 [facility] Neutrophils/100 WBC (Bld) 50.4 % 43.0 - 75.0 % [facility] Platelet mean volume (Bld) [Entitic vol] 11.2 fL 9.5 - 13.5 fL [facility] TBH EO # 0.1 [facility]H PLT 234 [facility] RBC 3.69 Low [facility] WBC 4.5 [facility] ECG 12-LEADon 10-07-2024 [place] [address] Electrocardiograph Report Signed Patient: SHERLY HUMPHREYS MR#: [id number] : 1970 Acct:[id number] Age/Sex: 53 / F ADM Date: 10/07/24 Loc: PST Attending Dr: Marcella Conway M.D. Ordering Physician: Marcella Conway M.D. Date of Service: 10/07/24 Procedure(s): ECG 12 lead Accession Number(s): [id number] cc: [facility] Test Date: 2024-10-07 Pat Name: SHERLY HUMPHREYS Department: Room: - Gender: Female [employer] M[employer]: : 1970 Requested By: 1822 Order Number: [id number] Reading MD: LITO EDEN M.D. Measurements Intervals [place] Rate: 51 P: 30 UT: 182 QRS: -16 QRSD: 105 T: 0 [...] Dictated By: LITO EDEN Signed By: 10/07/24 4235 DD/ 1001 TD/TT: Health Services Administrator: [facility] Radiology, Radiologi MD erasmo - 10/07/2024 [place] [address] Electrocardiograph Report Signed Patient: SHERLY HUMPHREYS MR#: [id number] : 1970 Acct:[id number] Age/Sex: 53 / F ADM Date: 10/07/24 Loc: [facility] Attending Dr: Marcella Conway M.D. Ordering Physician: Marcella Conway M.D. Date of Service: 10/07/24 Procedure(s): ECG 12 lead Accession Number(s): [id number] cc: [facility] Test Date: 2024-10-07 Pat Name: SHERLY HUMPHREYS Department: Room: - Gender: Female [employer] Molder: : 1970 Requested By: 1822 Order Number: [id number] Reading MD: LITO EDEN M.D. Measurements Intervals [place] Rate: 51 P: 30 UT: 182 QRS: -16 QRSD: 105 T: 0 [...] Dictated By: LITO EDEN Signed By: 10/07/24 3897 DD/ 1001 TD/TT: Health Services Administrator: [facility] Radiology Study observation (narrative) [facility] ECG 12-LEADOrdered By: Radio logist Radiology on 10-07-2024 [facility] Work Phone: XR CHEST 2Von 10-07-2024 [place] [address] XRay Report Signed Patient: SHERLY HUMPHREYS MR#: [id number] : 1970 Acct:[id number] Age/Sex: 53 / F ADM Date: 10/07/24 Loc: [facility] Attending Dr: Marcella Conway M.D. Ordering Physician: Marcella Conway M.D. Date of Service: 10/07/24 Procedure(s): XR chest 2V Accession Number(s): [id number] cc: Janene Lew NP; Marcella Conway M.D. [address] [address] Patient Name: SHERLY HUMPHREYS MRN: [facility]:[id number] date: 1970 Sex: F [facility] Patient Location: [facility] Accession/Order Number: [id number] Exam Date: 10/07/2024 12:58 Report Date: 10/07/2024 12:59 At the request of: MARCELLA CONWAY MD Procedure: XR chest 2V Chest 2 views CLINICAL HISTORY: Pre Op COMPARISON: Chest 07/05/2024 FINDINGS: Heart normal in size. Lungs are clear. No free air. XR/XR chest 2V IMPRESSION: NO ACUTE CARDIOPULMONARY ABNORMALITY. Impression dictated by: Kip Mon Jr., D.O. 10/07/2024 12:59 PM Dictation Location: [place] [address] Electronically authenticated by: [id number] Y Date: 10/07/2024 12:59 Dictated By: Kip Mon M.D. Signed By: 10/07/24 1302 DD/ 1259 TD/TT: Health Services Administrator: [facility] Radiology Radiologlawrence zimmerman MD - 10/07/2024 [place] [address] XRay Report Signed Patient: SHERLY HUMPHREYS MR#: [id number] : 1970 Acct:[id number] Age/Sex: 53 / F ADM Date: 10/07/24 Loc: [facility] Attending Dr: Marcella Conway M.D. Ordering Physician: Marcella Conway M.D. Date of Service: 10/07/24 Procedure(s): XR chest 2V Accession Number(s): [id number] cc: Janene Lew FORESTRY TREE PRUNER; Marcella Conway M.D. The [address] [address] Patient Name: SHERLY HUMPHREYS MRN: [facility]:[id number] date: 1970 Sex: F Assigned Patient Location: [facility] Current Patient Location: [facility] Accession/Order Number: [id number] Exam Date: 10/07/2024 12:58 Report Date: 10/07/2024 12:59 At the request of: MARCELLA CONWAY MD Procedure: XR chest 2V Chest 2 views CLINICAL HISTORY: Pre Op COMPARISON: Chest 07/05/2024 FINDINGS: Heart normal in size. Lungs are clear. No free air. XR/XR chest 2V IMPRESSION: NO ACUTE CARDIOPULMONARY ABNORMALITY. Impression dictated by: Kip Mon Jr., D.O. 10/07/2024 12:59 PM Dictation Location: [place] [address] Electronically authenticated by: [id number] Y Date: 10/07/2024 12:59 Dictated By: Kip Mon M.D. Signed By: 10/07/24 1302 DD/ 1259 TD/TT: Health Services Administrator: [facility] Radiology Study observation (narrative) [facility] XR CHEST 2VOrdered By: [email or web address] Radiology on 10-07-2024 [facility] Work Phone: ALL CBC WITH AUTO DIFFon BASOPHILS ABSOLUTE AUTO 0.1 [facility] Basophils/100 WBC (Bld) 0.8 % 0.2 - 2.0 % [facility] Eosinophils/100 WBC (Bld) 3.2 % 0.9 - 7.0 % [facility] Erythrocyte distribution width (RBC) [Ratio] 13 % 11.0 - 15.0 % [facility] Hematocrit (Bld) [Volume fraction] 33.6 % Low 36.0 - 48.0 % [facility] Hemoglobin (Bld) [Mass/Vol] 10.9 g/dL Low 12.0 - 16.0 g/dL [facility] IMMATURE GRANULOCYTES ABS AUTO 0.01 [facility] Immature granulocytes/100 WBC (Bld) 0.2 % 0.0 - 0.5 % [facility] Interpretation and review of laboratory results Abnormal [facility] LYMPHOCYTES ABSOLUTE AUTO 2.8 [facility] Lymphocytes/100 WBC (Bld) 46.4 % 20.5 - 60.0 % [facility] MCH (RBC) [Entitic mass] 30.2 pg 26.7 - 34.0 pg [facility] MCHC (RBC) [Mass/Vol] 32.4 g/dL 29.9 - 35.2 g/dL [facility] MCV (RBC) [Entitic vol] 93.1 fL 81.0 - 99.0 fL [facility] MONOCYTES ABSOLUTE AUTO 0.4 [facility] Monocytes/100 WBC (Bld) 6.6 % 1.7 - 12.0 % [facility] NEUTROPHILS ABSOLUTE AUTO 2.5 [facility] Neutrophils/100 WBC (Bld) 42.8 % Low 43.0 - 75.0 % [facility] Platelet mean volume (Bld) [Entitic vol] 10.8 fL 9.5 - 13.5 fL [facility] TB EO # 0.2 [facility] TB PLT 256 [facility] TB RBC 3.61 Low [facility] WBC 5.9 [facility] XR Hip - right [address] [place] [address] XRay Report Signed Patient: SHERLY HUMPHREYS MR#: [id number] : 1970 Acct:[id number] Age/Sex: 53 / F ADM Date: 08/28/24 Loc: [facility] Attending Dr: Elizabeth Meneses NP Ordering Physician: Elizabeth Meneses NP Date of Service: 08/28/24 Procedure(s): XR hip RT min 2V Accession Number(s): [id number] cc: Janene Lew FORESTRY TREE PRUNER; Elizabeth Meneses NP [place] [phone] Patient Name: SHERLY HUMPHREYS MRN: [facility]:[id number] date: 1970 Sex: F Assigned Patient Location: [facility] Current Patient Location: [facility] Accession/Order Number: [id number] Exam Date: 08/28/2024 10:29 Report Date: 08/28/2024 [...] Lubin M.D. 08/28/2024 10:30 AM Dictation Location: [place] [address] Electronically authenticated by: [id number] Y Date: 08/28/2024 10:30 Dictated By: Franco Lubin M.D. Signed By: 08/28/24 1032 DD/ 1030 TD/TT: Health Services Administrator: [facility] Radiology, Radiologi MD erasmo - 08/28/2024 [place] [address] XRay Report Signed Patient: SHERLY HUMPHREYS MR#: [id number] : 1970 Acct:[id number] Age/Sex: 53 / F ADM Date: 08/28/24 Loc: RAD Attending Dr: Elizabeth Meneses NP Ordering Physician: Elizabeth Meneses NP Date of Service: 08/28/24 Procedure(s): XR hip RT min 2V Accession Number(s): [id number] cc: Janene Lew FORESTRY TREE PRUNER; Elizabeth Meneses NP [place] [id number] Patient Name: SHERLY HUMPHREYS MRN: [facility]:[id number] date: 1970 Sex: F Assigned Patient Location: [facility] Current Patient Location: [facility] Accession/Order Number: [id number] Exam Date: 08/28/2024 10:29 Report Date: 08/28/2024 [...] Lubin M.D. 08/28/2024 10:30 AM Dictation Location: [place] [address] Electronically authenticated by: [id number] Y Date: 08/28/2024 10:30 Dictated By: Franco Lubin M.D. Signed By: 08/28/24 1032 DD/ 1030 TD/TT: Health Services Administrator: [facility] Radiology Study observation (narrative) [facility] XR Hip - right 3 ViewsOrdere d By: Radiologist Radiology on 08-28-2024 [facility] Work Phone: HbA1c (Bld) [Mass fraction]o n 06-16-2024 Interpretation and review of laboratory results Normal [facility] - Hematology and Cell countson 06-16-2024 HbA1c (Bld) [Mass fraction] 5.5 % [facility] Ferritinon 03-11-2024 Ferritin [Mass/Vol] 135.5 ng/mL Normal 11.0-306.8 [facility] Comment on above: Performed By: #### V [id number], [id number], PROCRERAT, FE and TIBC, URIC, URMACRERAT, UA, MG, PTH, RENAL, CBCNO, GEENA #### [address] Hemogram CBC Without Diffon 03-11-2024 Erythrocyte distribution width (RBC) [Ratio] 14.6 % Normal 11.9-15.3 [facility] Comment on above: Performed By: #### V [id number], [id number], PROCRERAT, FE and TIBC, URIC, URMACRERAT, UA, MG, PTH, RENAL, CBCNO, GEENA #### [facility] [address] Hematocrit (Bld) [Volume fraction] 34.9 % Normal 34.0-46.4 [facility] Comment on above: Performed By: #### V [id number], [id number], PROCRERAT, FE and TIBC, URIC, URMACRERAT, UA, MG, PTH, RENAL, CBCNO, GEENA #### [address] Hemoglobin (Bld) [Mass/Vol] 11.4 g/dL Low 11.8-15.4 [facility] Comment on above: Performed By: #### V [id number], [id number], PROCRERAT, FE and TIBC, URIC, URMACRERAT, UA, MG, PTH, RENAL, CBCNO, GEENA #### [address] MCH (RBC) [Entitic mass] 29.7 pg Normal 24.7-34.3 [facility] Comment on above: Performed By: #### V [id number], [id number], PROCRERAT, FE and TIBC, URIC, URMACRERAT, UA, MG, PTH, RENAL, CBCNO, GEENA #### [address] MCV (RBC) [Entitic vol] 91.3 fL Normal 80-100 [facility] Comment on above: Performed By: #### V [id number], [id number], PROCRERAT, FE and TIBC, URIC, URMACRERAT, UA, MG, PTH, RENAL, CBCNO, GEENA #### [address] Mean Corpuscular HGB Conc 32.6 g/dL Normal 32.0-35.0 [facility] Comment on above: Performed By: #### V [id number], [id number], PROCRERAT, FE and TIBC, URIC, URMACRERAT, UA, MG, PTH, RENAL, CBCNO, GEENA #### [address] Platelet mean volume (Bld) [Entitic vol] 8.7 fL Normal 6.3-10.7 [facility] Comment on above: Result Comment: PERF ORMED BY: [place] [address] PATHOLOGIST SUMO WRESTLER SHANIQUE CALDERON M.D. Performed By: #### V [id number], [id number], PROCRERAT, FE and TIBC, URIC, URMACRERAT, UA, MG, PTH, RENAL, CBCNO, GEENA #### [address] Platelets (Bld) [#/Vol] 328 10*3/uL Normal 150-450 [facility] Comment on above: Performed By: #### V [id number], [id number], PROCRERAT, FE and TIBC, URIC, URMACRERAT, UA, MG, PTH, RENAL, CBCNO, GEENA #### [address] RBC (Bld) [#/Vol] 3.83 10*6/uL Normal 3.60-5.00 [facility] Comment on above: Performed By: #### V [id number], [id number], PROCRERAT, FE and TIBC, URIC, URMACRERAT, UA, MG, PTH, RENAL, CBCNO, GEENA #### [address] WBC (Bld) [#/Vol] 5.1 10*3/uL Normal 3.8-11.6 [facility] Comment on above: Performed By: #### V [id number], [id number], PROCRERAT, FE and TIBC, URIC, URMACRERAT, UA, MG, PTH, RENAL, CBCNO, GEENA #### [address] Iron and TIBC Profileon - 6-2023 % Iron Saturation 30.1 % Normal 20-50 [facility] Comment on above: Performed By: #### V [id number], [id number], PROCRERAT, FE and TIBC, URIC, URMACRERAT, UA, MG, PTH, RENAL, CBCNO, GEENA #### [address] Iron [Mass/Vol] 118 ug/dL Normal 50-212 [facility] Comment on above: Performed By: #### V [id number], [id number], PROCRERAT, FE and TIBC, URIC, URMACRERAT, UA, MG, PTH, RENAL, CBCNO, GEENA #### [address] Total Iron Binding Capacity 392 ug/dL Normal 255-450 [facility] Comment on above: Performed By: #### V [id number], [id number], PROCRERAT, FE and TIBC, URIC, URMACRERAT, UA, MG, PTH, RENAL, CBCNO, GEENA #### [address] Transferrin [Mass/Vol] 280 mg/dL Normal 203-362 Th e [facility] Comment on above: Performed By: #### V [id number], [id number], PROCRERAT, FE and TIBC, URIC, URMACRERAT, UA, MG, PTH, RENAL, CBCNO, GEENA #### [address] Magnesiumon 03-11-2024 Magnesium [Mass/Vol] 1.9 mg/dL Normal 1.9-2.7 [facility] Comment on above: Performed By: #### V [id number], [id number], PROCRERAT, FE and TIBC, URIC, URMACRERAT, UA, MG, PTH, RENAL, CBCNO, GEENA #### [address] MicroAlb Creat Ratio,Uon Albumin DL <= 20 mg/L (U) [Mass/Vol] mg/dL Normal 0.0-1.8 [facility] Comment on above: Performed By: #### V [id number], [id number], PROCRERAT, FE and TIBC, URIC, URMACRERAT, UA, MG, PTH, RENAL, CBCNO, GEENA #### [address] Creatinine, Urine (Random) 57.00 mg/dL Normal [facility] Comment on above: Result Comment: No r eference range established Performed By: #### V [id number], [id number], PROCRERAT, FE and TIBC, URIC, URMACRERAT, UA, MG, PTH, RENAL, CBCNO, GEENA #### [address] Microalbumin/Creatinin e Ratio Not performed Normal 0.0-30.0 [facility] Comment on above: Performed By: #### V [id number], [id number], PROCRERAT, FE and TIBC, URIC, URMACRERAT, UA, MG, PTH, RENAL, CBCNO, GEENA #### [address] Parathyroid Hormone Intacton 03-11-2024 Parathyroid Hormone Intact 30.6 pg/mL Normal 12-88 [facility] Comment on above: Result Comment: PERF ORMED BY: [place] [address] PATHOLOGIST SUMO WRESTLER SHANIQUE CALDERON M.D. Performed By: #### V [id number], [id number], PROCRERAT, FE and TIBC, URIC, URMACRERAT, UA, MG, PTH, RENAL, CBCNO, GEENA #### [address] Protein Creat Ratio Ur Rando mon 03-11-2024 Protein (U) [Mass/Vol] 5 mg/dL Normal 0-9 Th e [facility] Comment on above: Performed By: #### V [id number], [id number], PROCRERAT, FE and TIBC, URIC, URMACRERAT, UA, MG, PTH, RENAL, CBCNO, GEENA #### [address] Urine Protein/Creatinine Ratio 88 mg/g{Cre} Normal 0-200 [facility] Comment on above: Result Comment: PERF ORMED BY: [place] [address] PATHOLOGIST SUMO WRESTLER SHANIQUE CALDERON M.D. Performed By: #### V [id number], [id number], PROCRERAT, FE and TIBC, URIC, URMACRERAT, UA, MG, PTH, RENAL, CBCNO, GEENA #### [address] Renal Function Panelon 03-11 Albumin [Mass/Vol] 3.9 g/dL Normal 3.5-5.7 [facility] Comment on above: Performed By: #### V [id number], [id number], PROCRERAT, FE and TIBC, URIC, URMACRERAT, UA, MG, PTH, RENAL, CBCNO, GEENA #### [address] Anion gap [Moles/Vol] 12.5 mmol/L Normal 6.0-15.0 Th e [facility] Comment on above: Performed By: #### V [id number], [id number], PROCRERAT, FE and TIBC, URIC, URMACRERAT, UA, MG, PTH, RENAL, CBCNO, GEENA #### [address] Calcium [Mass/Vol] 9.4 mg/dL Normal 8.6-10.3 [facility] Comment on above: Performed By: #### V [id number], [id number], PROCRERAT, FE and TIBC, URIC, URMACRERAT, UA, MG, PTH, RENAL, CBCNO, GEENA #### [address] Chloride [Moles/Vol] 110 mmol/L High 98-107 [facility] Comment on above: Performed By: #### V [id number], [id number], PROCRERAT, FE and TIBC, URIC, URMACRERAT, UA, MG, PTH, RENAL, CBCNO, GEENA #### [address] CO2 [Moles/Vol] 25.0 mmol/L Normal 21.0-31.0 [facility] Comment on above: Performed By: #### V [id number], [id number], PROCRERAT, FE and TIBC, URIC, URMACRERAT, UA, MG, PTH, RENAL, CBCNO, GEENA #### [address] Creatinine [Mass/Vol] 1.50 mg/dL High 0.60-1.20 [facility] Comment on above: Performed By: #### V [id number], [id number], PROCRERAT, FE and TIBC, URIC, URMACRERAT, UA, MG, PTH, RENAL, CBCNO, GEENA #### [address] Estimated GFR 41.412 mL/Min Normal [facility] Comment on above: Performed By: #### V [id number], [id number], PROCRERAT, FE and TIBC, URIC, URMACRERAT, UA, MG, PTH, RENAL, CBCNO, GEENA #### [address] Glucose [Mass/Vol] 88 mg/dL Normal 70-100 [facility] Comment on above: Result Comment: [facility] Glucose Reference Range is dependent on time and content of last meal. Glucose of more than 200 mg/dL in a nonstressed, ambulatory subject supports the diagnosis of Diabetes Mellitus. ADA recommended reference range Performed By: #### V [id number], [id number], PROCRERAT, FE and TIBC, URIC, URMACRERAT, UA, MG, PTH, RENAL, CBCNO, GEENA #### [address] Phosphate [Mass/Vol] 2.7 mg/dL Normal 2.5-4.5 [facility] Comment on above: Performed By: #### V [id number], [id number], PROCRERAT, FE and TIBC, URIC, URMACRERAT, UA, MG, PTH, RENAL, CBCNO, GEENA #### [address] Potassium [Moles/Vol] 4.5 mmol/L Normal 3.5-5.1 [facility] Comment on above: Performed By: #### V [id number], [id number], PROCRERAT, FE and TIBC, URIC, URMACRERAT, UA, MG, PTH, RENAL, CBCNO, GEENA #### [address] Sodium [Moles/Vol] 143 mmol/L Normal 136-145 [facility] Comment on above: Performed By: #### V [id number], [id number], PROCRERAT, FE and TIBC, URIC, URMACRERAT, UA, MG, PTH, RENAL, CBCNO, GEENA #### [address] Urea nitrogen [Mass/Vol] 18 mg/dL Normal 7-25 [facility] Comment on above: Performed By: #### V [id number], [id number], PROCRERAT, FE and TIBC, URIC, URMACRERAT, UA, MG, PTH, RENAL, CBCNO, GEENA #### [address] Uric Acidon 03-11-2024 Urate [Mass/Vol] 6.3 mg/dL Normal 2.3-6.6 [facility] Comment on above: Performed By: #### V [id number], [id number], PROCRERAT, FE and TIBC, URIC, URMACRERAT, UA, MG, PTH, RENAL, CBCNO, GEENA #### [address] Urinalysison 03-11-2024 Appearance (U) Clear Normal Clear [facility] Comment on above: Order Comment: Name Collection Type:: Clean-Voided Midstream Performed By: #### V [id number], [id number], PROCRERAT, FE and TIBC, URIC, URMACRERAT, UA, MG, PTH, RENAL, CBCNO, GEENA #### [address] Bilirubin,Urine Negative Normal Negative [facility] Comment on above: Order Comment: Name Collection Type:: Clean-Voided Midstream Performed By: #### V [id number], [id number], PROCRERAT, FE and TIBC, URIC, URMACRERAT, UA, MG, PTH, RENAL, CBCNO, GEENA #### [address] Color (U) Light-Yellow Normal Yellow [facility] Comment on above: Order Comment: Name Collection Type:: Clean-Voided Midstream Performed By: #### V [id number], [id number], PROCRERAT, FE and TIBC, URIC, URMACRERAT, UA, MG, PTH, RENAL, CBCNO, GEENA #### [address] Glucose Ql (U) Normal Normal Normal [facility] Comment on above: Order Comment: Name Collection Type:: Clean-Voided Midstream Performed By: #### V [id number], [id number], PROCRERAT, FE and TIBC, URIC, URMACRERAT, UA, MG, PTH, RENAL, CBCNO, GEENA #### [address] Ketones Ql (U) Negative Normal Negative [facility] Comment on above: Order Comment: Name Collection Type:: Clean-Voided Midstream Performed By: #### V [id number], [id number], PROCRERAT, FE and TIBC, URIC, URMACRERAT, UA, MG, PTH, RENAL, CBCNO, GEENA #### [address] Leukocyte esterase Test strip Ql (U) Negative Normal Negative [facility] Comment on above: Order Comment: Name Collection Type:: Clean-Voided Midstream Performed By: #### V [id number], [id number], PROCRERAT, FE and TIBC, URIC, URMACRERAT, UA, MG, PTH, RENAL, CBCNO, GEENA #### [address] Nitrite,Urine Negative Normal Negative [facility] Comment on above: Order Comment: Name Collection Type:: Clean-Voided Midstream Performed By: #### V [id number], [id number], PROCRERAT, FE and TIBC, URIC, URMACRERAT, UA, MG, PTH, RENAL, CBCNO, GEENA #### [address] Occult Blood,Urine Negative Normal Negative [facility] Comment on above: Order Comment: Name Collection Type:: Clean-Voided Midstream Result Comment: PERF ORMED BY: [place] [address] PATHOLOGIST SUMO WRESTLER SHANIQUE CALDERON M.D. Performed By: #### V [id number], [id number], PROCRERAT, FE and TIBC, URIC, URMACRERAT, UA, MG, PTH, RENAL, CBCNO, GEENA #### [address] pH (U) 5.5 [pH] Normal 5.0-9.0 [facility] Comment on above: Order Comment: Name Collection Type:: Clean-Voided Midstream Performed By: #### V [id number], [id number], PROCRERAT, FE and TIBC, URIC, URMACRERAT, UA, MG, PTH, RENAL, CBCNO, GEENA #### [address] Protein,Urine Negative Normal Negative [facility] Comment on above: Order Comment: Name Collection Type:: Clean-Voided Midstream Performed By: #### V [id number], [id number], PROCRERAT, FE and TIBC, URIC, URMACRERAT, UA, MG, PTH, RENAL, CBCNO, GEENA #### [address] [place] [address] [place] Specificy [place],Urine 1.011 Normal 1.001-1.030 [facility] Comment on above: Order Comment: Name Collection Type:: Clean-Voided Midstream Performed By: #### V [id number], [id number], PROCRERAT, FE and TIBC, URIC, URMACRERAT, UA, MG, PTH, RENAL, CBCNO, GEENA #### [address] Urobilinogen,Urine Normal Normal Normal [facility] Comment on above: Order Comment: Name Collection Type:: Clean-Voided Midstream Performed By: #### V [id number], [id number], PROCRERAT, FE and TIBC, URIC, URMACRERAT, UA, MG, PTH, RENAL, CBCNO, GEENA #### [address] Vit. B12/Folate Profileon Cobalamin (Vitamin B12) [Mass/Vol] 4548 pg/mL High 180-914 [facility] Comment on above: Performed By: #### V [id number], [id number], PROCRERAT, FE and TIBC, URIC, URMACRERAT, UA, MG, PTH, RENAL, CBCNO, GEENA #### [address] Folate 8.2 ng/mL Normal >5.9 [facility] Comment on above: Result Comment: Maria te reference range: >5.9 ng/ml The WHO technical consultation on folate and vitamin b12 deficiencies has determined that folate concentrations less than 4 ng/ml are considered deficient. Performed By: #### V [id number], [id number], PROCRERAT, FE and TIBC, URIC, URMACRERAT, UA, MG, PTH, RENAL, CBCNO, GEENA #### [address] Vitamin D 25 Hydroxy Totalon 03-11-2024 Vitamin D 25 Hydroxy Total 25.0 ng/mL Low 30-100 [facility] Comment on above: Result Comment: AWAIS MIN D STATUS 25(OH)VITAMIN D RANGE (ng/mL) Deficient <20 Insufficient 20 to <30 Sufficient 30 to 100 Reference: Karen MF,Nicole SCOTT, Ed LI, et al. Evaluation,treatment, and prevention of vitamin D deficiency; an Endocrine Society clinical practice guideline. JCEM. 2010; 96(7):1911-30. PERFORMED BY: [facility] [address] [place] [address] PATHOLOGIST SUMO WRESTLER SHANIQUE CALDERON M.D. Performed By: #### V [id number], [id number], PROCRERAT, FE and TIBC, URIC, URMACRERAT, UA, MG, PTH, RENAL, CBCNO, GEENA #### [facility] [address] [place] [id number] [facility] HbA1c (Bld) [Mass fraction]o n 02-19-2024 Interpretation and review of laboratory results Normal [facility] - Hematology and Cell countson 02-19-2024 HbA1c (Bld) [Mass fraction] 5.1 % [facility] ALL CBC WITH AUTO DIFFon BASOPHILS ABSOLUTE AUTO 0.1 [facility] Basophils/100 WBC (Bld) 0.6 % 0.2 - 2.0 % [facility] Eosinophils/100 WBC (Bld) 1.4 % 0.9 - 7.0 % [facility] Erythrocyte distribution width (RBC) [Ratio] 14.1 % 11.0 - 15.0 % [facility] Hematocrit (Bld) [Volume fraction] 40.0 % 36.0 - 48.0 % [facility] Hemoglobin (Bld) [Mass/Vol] 12.4 g/dL 12.0 - 16.0 g/dL [facility] IMMATURE GRANULOCYTES ABS AUTO 0.03 [facility] Immature granulocytes/100 WBC (Bld) 0.4 % 0.0 - 0.5 % [facility] LYMPHOCYTES ABSOLUTE AUTO 1.9 [facility] Lymphocytes/100 WBC (Bld) 24.7 % 20.5 - 60.0 % [facility] MCH (RBC) [Entitic mass] 28.4 pg 26.7 - 34.0 pg [facility] MCHC (RBC) [Mass/Vol] 31.0 g/dL 29.9 - 35.2 g/dL [facility] MCV (RBC) [Entitic vol] 91.5 fL 81.0 - 99.0 fL [facility] MONOCYTES ABSOLUTE AUTO 0.4 [facility] Monocytes/100 WBC (Bld) 4.6 % 1.7 - 12.0 % [facility] NEUTROPHILS ABSOLUTE AUTO 5.3 [facility] Neutrophils/100 WBC (Bld) 68.3 % 43.0 - 75.0 % [facility] Platelet mean volume (Bld) [Entitic vol] 11.1 fL 9.5 - 13.5 fL [facility] TBH EO # 0.1 [facility] TBH PLT 261 [facility] TB RBC 4.37 [facility] TB WBC 7.8 [facility] Office Visiton 12-18-2023 Follow-up visit [id number] Nithin Humphreys 1970 F Date Provider Department Center 12/18/[phone] [facility] No family history on file Level of Service:86435 [place] OFFICE/OUTPATIENT ESTABLISHED LOW MDM 20 MIN Normal [facility] Glucose Glucometer (BldC) [M ass/Vol]Ordered By: Ban Clemente on 11-01-2023 Glucose [Mass/Vol] 107 mg/dL [facility] Comment on above: Random Glucose Refer ence Range is dependent on time and content of last meal. Glucose of more than 200 mg/dL in a nonstressed, ambulatory subject supports the diagnosis of Diabetes Mellitus. No Panel InformationOrdered By: Ban Clemente on 11-01-2023 Bedside Glucose Comment Glu2: cleaned meter [facility] Calcium [Mass/volume] in Ser um or PlasmaOrdered By: Fernando Rosenberg on 10-11-2023 Calcium [Mass/Vol] 9.7 mg/dL 8.6-10.3 [facility] Carbon dioxide, total [Moles /volume] in Serum or PlasmaOrdered By: Fernando Rosenberg on 10-11-2023 CO2 [Moles/Vol] 26.7 mmol/L 21.0-31.0 [facility] Chloride [Moles/volume] in S brunilda or PlasmaOrdered By: Fernando Rosenberg on 10-11-2023 Chloride [Moles/Vol] 107 mmol/L 98-107 [facility] Creatinine [Mass/volume] in Serum or PlasmaOrdered By: Fernando Rosenberg on 10-11-2023 Creatinine [Mass/Vol] 2.04 mg/dL High 0.60-1.20 [facility] Glucose [Mass/volume] in Ser um or PlasmaOrdered By: Fernando Rosenberg on 10-11-2023 Glucose [Mass/Vol] 96 mg/dL 70-100 [facility] Comment on above: ADA recommended refe rence rangeRandom Glucose Reference Range is dependent on time and content of last meal. Glucose of more than 200 mg/dL in a nonstressed, ambulatory subject supports the diagnosis of Diabetes Mellitus. No Panel InformationOrdered By: Fernando Rosenberg on 10-11-2023 Estimated GFR (CKD-EPI) 28.812 mL/Min [facility] Creatinine Clearance (Chem N/A [facility] Potassium [Moles/volume] in Serum or PlasmaOrdered By: Fernando Rosenberg on 10-11-2023 Potassium [Moles/Vol] 5.2 mmol/L High 3.5-5.1 [facility] Serum or plasma anion gap de terminationOrdered By: Fernando Rosenberg on 10-11-2023 Anion gap [Moles/Vol] 11.5 mmol/L 6.0-15.0 [facility] Sodium [Moles/volume] in Ser um or PlasmaOrdered By: Fernando Rosenberg on 10-11-2023 Sodium [Moles/Vol] 140 mmol/L 136-145 [facility] Urea nitrogen [Mass/volume] in Serum or PlasmaOrdered By: Fernando Rosenberg on 10-11-2023 Urea nitrogen [Mass/Vol] 41 mg/dL High 7-25 [facility] Basophils Auto (Bld) [#/Vol] Ordered By: Fernando Rosenberg on 10-02-2023 Basophils (Bld) [#/Vol] 0.0 10*3/uL 0.0-0.2 [facility] Basophils/100 WBC Auto (Bld) Ordered By: Fernando Rosenberg on 10-02-2023 Basophils/100 WBC (Bld) 0.8 % . [facility] Calcium [Mass/volume] in Ser um or PlasmaOrdered By: Fernando Rosenberg on 10-02-2023 Calcium [Mass/Vol] 9.0 mg/dL 8.6-10.3 [facility] Carbon dioxide, total [Moles /volume] in Serum or PlasmaOrdered By: Fernando Rosenberg on 10-02-2023 CO2 [Moles/Vol] 26.9 mmol/L 21.0-31.0 [facility] Chloride [Moles/volume] in S brunilda or PlasmaOrdered By: Fernando Rosenberg on 10-02-2023 Chloride [Moles/Vol] 110 mmol/L High 98-107 [facility] Creatinine [Mass/volume] in Serum or PlasmaOrdered By: Fernando Rosenberg on 10-02-2023 Creatinine [Mass/Vol] 1.52 mg/dL High 0.60-1.20 [facility] Comment on above: Delta: 2.27 on 09/30-0758 Eosinophils Auto (Bld) [#/Vo l]Ordered By: Fernando Rosenberg on 10-02-2023 Eosinophils (Bld) [#/Vol] 0.2 10*3/uL 0.0-0.45 [facility] Eosinophils/100 WBC Auto (Bl d)Ordered By: Fernando Rosenberg on 10-02-2023 Eosinophils/100 WBC (Bld) 3.4 % . [facility] Erythrocyte distribution wid th Auto (RBC) [Ratio]Ordered By: Fernando Rosenberg on 10-02-2023 Erythrocyte distribution width (RBC) [Ratio] 14.3 % 11.9-15.3 [facility] Glucose Glucometer (BldC) [M ass/Vol]Ordered By: Fernando Rosenberg on 10-02-2023 Glucose [Mass/Vol] 93 mg/dL [facility] Comment on above: Random Glucose Refer ence Range is dependent on time and content of last meal. Glucose of more than 200 mg/dL in a nonstressed, ambulatory subject supports the diagnosis of Diabetes Mellitus. Glucose [Mass/volume] in Ser um or PlasmaOrdered By: Fernando Rosenberg on 10-02-2023 Glucose [Mass/Vol] 85 mg/dL 70-100 [facility] Comment on above: ADA recommended refe rence rangeRandom Glucose Reference Range is dependent on time and content of last meal. Glucose of more than 200 mg/dL in a nonstressed, ambulatory subject supports the diagnosis of Diabetes Mellitus. Hematocrit Auto (Bld) [Volum e fraction]Ordered By: Fernando Rosenberg on 10-02-2023 Hematocrit (Bld) [Volume fraction] 31.5 % Low 34.0-46.4 [facility] Hemoglobin [Mass/volume] in BloodOrdered By: Fernando Rosenberg on 10-02-2023 Hemoglobin (Bld) [Mass/Vol] 10.4 g/dL Low 11.8-15.4 [facility] Leukocytes [#/volume] correc joaquin for nucleated erythrocytes in Blood by Automated counOrdered By: Fernando Rosenberg on 10-02-2023 WBC corrected for nucl RBC Auto (Bld) [#/Vol] 4.8 10*3/uL 3.8-11.6 [facility] Lymphocytes Auto (Bld) [#/Vo l]Ordered By: Fernando Rosenberg on 10-02-2023 Lymphocytes (Bld) [#/Vol] 2.1 10*3/uL 1.00-4.8 [facility] Lymphocytes/100 WBC Auto (Bl d)Ordered By: Fernando Rosenberg on 10-02-2023 Lymphocytes/100 WBC (Bld) 43.2 % . [facility] MCH Auto (RBC) [Entitic mass ]Ordered By: Fernando Rosenberg on 10-02-2023 MCH (RBC) [Entitic mass] 30.1 pg 24.7-34.3 [facility] MCHC Auto (RBC) [Mass/Vol]Or dered By: Fernando Rosenberg on 10-02-2023 MCHC (RBC) [Mass/Vol] 33.2 g/dL 32.0-35.0 [facility] MCV Auto (RBC) [Entitic vol] Ordered By: Fernando Rosenberg on 10-02-2023 MCV (RBC) [Entitic vol] 90.7 fL 80-100 [facility] Monocytes Auto (Bld) [#/Vol] Ordered By: Fernando Rosenberg on 10-02-2023 Monocytes (Bld) [#/Vol] 0.3 10*3/uL 0.0-0.8 [facility] Monocytes/100 WBC Auto (Bld) Ordered By: Fernando Rosenberg on 10-02-2023 Monocytes/100 WBC (Bld) 6.4 % . [facility] Neutrophils Auto (Bld) [#/Vo l]Ordered By: Fernando Rosenberg on 10-02-2023 Neutrophils (Bld) [#/Vol] 2.2 10*3/uL 1.8-7.7 [facility] Neutrophils/100 WBC Auto (Bl d)Ordered By: Fernando Rosenberg on 10-02-2023 Neutrophils/100 WBC (Bld) 46.2 % . [facility] No Panel InformationOrdered By: Fernando Rosenberg on 10-02-2023 Estimated GFR (CKD-EPI) 41.013 mL/Min [facility] Creatinine Clearance (Chem 60.65 [facility] Nucleated erythrocytes [Pres ence] in Blood by Automated countOrdered By: Fernando Rosenberg on 10-02-2023 Nucleated RBC Auto Ql (Bld) 0.0 /100{WBC} 0-0.5 [facility] Platelet mean volume Auto (B ld) [Entitic vol]Ordered By: Fernando Rosenberg on 10-02-2023 Platelet mean volume (Bld) [Entitic vol] 9.2 fL 6.3-10.7 [facility] Platelets Auto (Bld) [#/Vol] Ordered By: Fernando Rosenberg on 10-02-2023 Platelets (Bld) [#/Vol] 230 10*3/uL 150-450 [facility] Potassium [Moles/volume] in Serum or PlasmaOrdered By: Fernando Rosenberg on 10-02-2023 Potassium [Moles/Vol] 4.5 mmol/L 3.5-5.1 [facility] RBC Auto (Bld) [#/Vol]Ordere d By: Fernando Jeffkpor on 10-02-2023 RBC (Bld) [#/Vol] 3.47 10*6/uL Low 3.60-5.00 [facility] Serum or plasma anion gap de terminationOrdered By: Fernando Aguilarkpswathi on 10-02-2023 Anion gap [Moles/Vol] 9.6 mmol/L 6.0-15.0 [facility] Sodium [Moles/volume] in Ser um or PlasmaOrdered By: Fernando Doamekpor on 10-02-2023 Sodium [Moles/Vol] 142 mmol/L 136-145 [facility] Urea nitrogen [Mass/volume] in Serum or PlasmaOrdered By: Fernando Jeffkpor on 10-02-2023 Urea nitrogen [Mass/Vol] 34 mg/dL High 7-25 [facility] WBC Auto (Bld) [#/Vol]Ordere d By: Fernando Doamecris on 10-02-2023 WBC (Bld) [#/Vol] 4.8 10*3/uL 3.8-11.6 [facility] Activated partial thrombopla stin time (aPTT) in platelet poor plasma by coagulation aOrdered By: Alma Deng on 10-01-2023 aPTT Coag (PPP) [Time] 30.1 s 25.1-36.5 [facility] Comment on above: A hematocrit value g reater than 55% may lead to inaccurate results in coagulation testing. Patients having hematocrit values >55% require a special collection tube for coagulation studies. Please contact the laboratory at [phone] for redraw instructions. Alanine aminotransferase [En zymatic activity/volume] in Serum or PlasmaOrdered By: Alma Deng on 10-01-2023 ALT [Catalytic activity/Vol] 19 U/L 7-52 [facility] Albumin [Mass/volume] in Ser um or Plasma by Bromocresol green (BCG) dye binding methoOrdered By: Alma Deng on 10-01-2023 Albumin BCG dye [Mass/Vol] 3.9 g/dL 3.5-5.7 [facility] Alkaline phosphatase [Enzyma tic activity/volume] in Serum or PlasmaOrdered By: Alma Deng on 10-01-2023 ALP [Catalytic activity/Vol] 56 U/L 34-104 [facility] Aspartate aminotransferase [ Enzymatic activity/volume] in Serum or PlasmaOrdered By: Alma Deng on 10-01-2023 AST [Catalytic activity/Vol] 29 U/L 13-39 [facility] Bacteria [Presence] in Urine by AutomatedOrdered By: Alma Deng on 10-01-2023 Bacteria Auto Ql (U) None seen [HPF] None Seen [facility] Bilirubin Test strip Ql (U)O rdered By: Alma Deng on 10-01-2023 Bilirubin Ql (U) Negative Negative [facility] Bilirubin.total [Mass/volume ] in Serum or PlasmaOrdered By: Alma Deng on 10-01-2023 Bilirubin [Mass/Vol] 0.3 mg/dL 0.3-1.0 [facility] Color Auto (U)Ordered By: Christ Deng on 10-01-2023 Color (U) Colorless Yellow [facility] Creatinine [Mass/volume] in UrineOrdered By: Alma Deng on 10-01-2023 Creatinine (U) [Mass/Vol] 65.00 mg/dL [facility] Comment on above: No reference range e stablished Eosinophils detection in uri ne sediment by Nava stainOrdered By: Alma Deng on 10-01-2023 Eosinophils Nava stain Ql (Urine sed) 0 % 0-1 [facility] Epithelial cells.squamous [# /area] in Urine sediment by Automated countOrdered By: Alma Deng on 10-01-2023 Epithelial cells.squamous Auto (Urine sed) [#/Area] N/A [facility] Erythrocytes [#/area] in Uri ne sediment by Automated countOrdered By: Alma Deng on 10-01-2023 RBC Auto (Urine sed) [#/Area] None seen [HPF] 0-4 [facility] Globulin Calc (S) [Mass/Vol] Ordered By: Alma Deng on 10-01-2023 Globulin (S) [Mass/Vol] 2.2 g/dL [facility] Glucose [Mass/volume] in Uri ne by Test stripOrdered By: Alma Deng on 10-01-2023 Glucose Test strip (U) [Mass/Vol] Normal mg/dL Normal [facility] Hemoglobin Test strip Ql (U) Ordered By: Alma Deng on 10-01-2023 Hemoglobin Ql (U) Negative Negative [facility] Hyaline casts [#/area] in Ur ine sediment by Automated countOrdered By: Alma Deng on 10-01-2023 Hyaline casts Auto (Urine sed) [#/Area] 0-8 [LPF] 0-8 [facility] INR in Platelet poor plasma by Coagulation assayOrdered By: Alma Deng on 10-01-2023 INR Coag (PPP) [Relative time] 1.1 {INR} [facility] Comment on above: INR Therapeutic Rang e [...] on 10-01-2023 Ketones Ql (U) Negative Negative [facility] Leukocyte esterase [Presence ] in Urine by Test stripOrdered By: Alma Deng on 10-01-2023 Leukocyte esterase Test strip Ql (U) 1+ High Negative [facility] Leukocytes [#/area] in Urine sediment by Automated countOrdered By: Alma Deng on 10-01-2023 WBC Auto (Urine sed) [#/Area] 3-4 [HPF] 0-4 [facility] Mucus [Presence] in Urine by AutomatedOrdered By: Alma Deng on 10-01-2023 Mucus Auto Ql (U) Rare [LPF] [facility] Nitrite Test strip Ql (U)Ord ered By: Alma Deng on 10-01-2023 Nitrite Ql (U) Negative Negative [facility] No Panel InformationOrdered By: Fernando Rosenberg on 10-01-2023 Bedside Glucose Comment Glu2: cleaned meter [facility] Protein Test strip (U) [Mass /Vol]Ordered By: Alma eDng on 10-01-2023 Protein (U) [Mass/Vol] Negative Negative [facility] Protein [Mass/volume] in Ser um or PlasmaOrdered By: Alma Deng on 10-01-2023 Protein [Mass/Vol] 6.1 g/dL Low 6.4-8.9 [facility] Prothrombin time (PT)Ordered By: Alma Deng on 10-01-2023 PT Coag (PPP) [Time] 12.2 s 9.0-12.9 [facility] Comment on above: A hematocrit value g reater than 55% may lead to inaccurate results in coagulation testing. Patients having hematocrit values >55% require a special collection tube for coagulation studies. Please contact the laboratory at [phone] for redraw instructions. Serum or plasma albumin/glob ulin mass ratioOrdered By: Alma Deng on 10-01-2023 Albumin/Globulin [Mass ratio] 1.8 {ratio} [facility] Sodium [Moles/volume] in Uri neOrdered By: Alma Deng on 10-01-2023 Sodium (U) [Moles/Vol] 54.0 mmol/L [facility] Comment on above: No reference range e stablished Specific gravity Test strip (U) [Rel density]Ordered By: Alma Deng on 10-01-2023 Specific gravity (U) [Rel density] 1.009 1.001-1.030 [facility] Urine appearanceOrdered By: Alma Deng on 10-01-2023 Appearance (U) Clear Clear [facility] Urobilinogen Test strip (U) [Mass/Vol]Ordered By: Alma Deng on 10-01-2023 Urobilinogen (U) [Mass/Vol] Normal mg/dL Normal [facility] pH Test strip (U)Ordered By: Alma Deng on 10-01-2023 pH (U) 5.5 [pH] 5.0-9.0 [facility] Albumin [Mass/volume] in Ser um or Plasma by Bromocresol green (BCG) dye binding methoOrdered By: Halle Mac on 08-10-2023 Albumin BCG dye [Mass/Vol] 4.0 g/dL 3.5-5.7 [facility] Automated erythrocytes count in urine sediment (number/area)Ordered By: Halle Mac on 08-10-2023 RBC Auto (Urine sed) [#/Area] None seen [HPF] 0-4 [facility] Automated leukocytes count i n urine sediment (number/area)Ordered By: Halle Mac on 08-10-2023 WBC Auto (Urine sed) [#/Area] 3-4 [HPF] 0-4 [facility] Bilirubin Test strip Ql (U)O rdered By: Halle Mac on 08-10-2023 Bilirubin Ql (U) Negative Negative [facility] Calcium [Mass/volume] in Ser um or PlasmaOrdered By: Halle Mac on 08-10-2023 Calcium [Mass/Vol] 9.3 mg/dL 8.6-10.3 [facility] Carbon dioxide, total [Moles /volume] in Serum or PlasmaOrdered By: Halle Mac on 08-10-2023 CO2 [Moles/Vol] 24.8 mmol/L 21.0-31.0 [facility] Chloride [Moles/volume] in S brunilda or PlasmaOrdered By: Halle Mac on 08-10-2023 Chloride [Moles/Vol] 110 mmol/L High 98-107 [facility] Color Auto (U)Ordered By: Donald Mac on 08-10-2023 Color (U) Yellow Yellow [facility] Creatinine [Mass/volume] in Serum or PlasmaOrdered By: Halle Mac on 08-10-2023 Creatinine [Mass/Vol] 1.59 mg/dL High 0.60-1.20 [facility] Creatinine [Mass/volume] in UrineOrdered By: Halle Mac on 08-10-2023 Creatinine (U) [Mass/Vol] 92.0 mg/dL [facility] Comment on above: No reference range e stablished Erythrocyte distribution wid th Auto (RBC) [Ratio]Ordered By: Halle Mac on 08-10-2023 Erythrocyte distribution width (RBC) [Ratio] 15.1 % 11.9-15.3 [facility] Ferritin [Mass/volume] in Se rum or PlasmaOrdered By: Halle Mac on 08-10-2023 Ferritin [Mass/Vol] 62.9 ng/mL 11.0-306.8 [facility] Folate [Mass/volume] in Seru m or PlasmaOrdered By: Halle Mac on 08-10-2023 Folate [Mass/Vol] 15.7 ng/mL >5.9 [facility] Comment on above: Folate reference ran ge: >5.9 ng/mlThe WHO technical consultation on folate and vitamin [id number] has determined that folate concentrations lessthan 4 ng/ml are considered deficient. Glucose [Mass/volume] in Ser um or PlasmaOrdered By: Halle Mac on 08-10-2023 Glucose [Mass/Vol] 94 mg/dL 70-100 [facility] Comment on above: ADA recommended refe rence rangeRandom Glucose Reference Range is dependent on time and content of last meal. Glucose of more than 200 mg/dL in a nonstressed, ambulatory subject supports the diagnosis of Diabetes Mellitus. Hematocrit Auto (Bld) [Volum e fraction]Ordered By: Halle Mac on 08-10-2023 Hematocrit (Bld) [Volume fraction] 35.0 % 34.0-46.4 [facility] Hemoglobin [Mass/volume] in BloodOrdered By: Halle Mac 08-10-2023 Hemoglobin (Bld) [Mass/Vol] 11.5 g/dL Low 11.8-15.4 [facility] Iron [Mass/volume] in Serum or PlasmaOrdered By: Halle Mac on 08-10-2023 Iron [Mass/Vol] 75 ug/dL 50-212 [facility] Iron binding capacity [Mass/ volume] in Serum or PlasmaOrdered By: Halle Mac on 08-10-2023 Iron binding capacity [Mass/Vol] 480 ug/dL High 255-450 [facility] Iron saturation [Mass Fracti on] in Serum or PlasmaOrdered By: Halle Mac on 08-10-2023 Iron saturation [Mass fraction] 15.6 % Low 20-50 [facility] Ketones Auto test strip (U) [Mass/Vol]Ordered By: Halle Mac on 08-10-2023 Ketones (U) [Mass/Vol] Negative Negative [facility] Laboratory - UrinalysisOrder ed By: Halle Mac on 08-10-2023 Hyaline casts LM Ql (Urine sed) None seen [LPF] 0-8 [facility] Leukocytes [#/volume] correc joaquin for nucleated erythrocytes in Blood by Automated counOrdered By: Halle Mac on 08-10-2023 WBC corrected for nucl RBC Auto (Bld) [#/Vol] 4.0 10*3/uL 3.8-11.6 [facility] MCH Auto (RBC) [Entitic mass ]Ordered By: Halle Mac on 08-10-2023 MCH (RBC) [Entitic mass] 29.6 pg 24.7-34.3 [facility] MCHC Auto (RBC) [Mass/Vol]Or dered By: Halle Mac on 08-10-2023 MCHC (RBC) [Mass/Vol] 32.9 g/dL 32.0-35.0 [facility] MCV Auto (RBC) [Entitic vol] Ordered By: Halle Mac on 08-10-2023 MCV (RBC) [Entitic vol] 90.0 fL 80-100 [facility] Magnesium [Mass/volume] in S brunilda or PlasmaOrdered By: Halle Mac on 08-10-2023 Magnesium [Mass/Vol] 1.9 mg/dL 1.9-2.7 [facility] Nitrite Test strip Ql (U)Ord ered By: Halle Mac on 08-10-2023 Nitrite Ql (U) Negative Negative [facility] No Panel InformationOrdered By: Halle Mac on 08-10-2023 Estimated GFR (CKD-EPI) 38.856 mL/Min [facility] Creatinine Clearance (Chem N/A [facility] Parathyrin.intact [Mass/volu me] in Serum or PlasmaOrdered By: Halle Mac on 08-10-2023 Parathyrin.intact [Mass/Vol] 38.7 pg/mL 12-88 [facility] Phosphate [Mass/volume] in S brunilda or PlasmaOrdered By: Halle Mac on 08-10-2023 Phosphate [Mass/Vol] 3.7 mg/dL 2.5-4.5 [facility] Platelet mean volume Auto (B ld) [Entitic vol]Ordered By: Halle Mac on 08-10-2023 Platelet mean volume (Bld) [Entitic vol] 9.8 fL 6.3-10.7 [facility] Platelets Auto (Bld) [#/Vol] Ordered By: Halle Mac on 08-10-2023 Platelets (Bld) [#/Vol] 217 10*3/uL 150-450 [facility] Potassium [Moles/volume] in Serum or PlasmaOrdered By: Halle Mac on 08-10-2023 Potassium [Moles/Vol] 4.5 mmol/L 3.5-5.1 [facility] Protein Auto test strip (U) [Mass/Vol]Ordered By: Halle Mac on 08-10-2023 Protein (U) [Mass/Vol] Negative Negative [facility] Protein [Mass/volume] in Uri neOrdered By: Halle Mac on 08-10-2023 Protein (U) [Mass/Vol] mg/dL 0-9 [facility] RBC Auto (Bld) [#/Vol]Ordere d By: Halle Mac on 08-10-2023 RBC (Bld) [#/Vol] 3.89 10*6/uL 3.60-5.00 [facility] Serum or plasma anion gap de terminationOrdered By: Halle Mac on 08-10-2023 Anion gap [Moles/Vol] 11.7 mmol/L 6.0-15.0 [facility] Sodium [Moles/volume] in Ser um or PlasmaOrdered By: Halle Mac on 08-10-2023 Sodium [Moles/Vol] 142 mmol/L 136-145 [facility] Specific gravity Auto test s trip (U) [Rel density]Ordered By: Halle Mac on 08-10-2023 Specific gravity (U) [Rel density] 1.015 1.001-1.030 [facility] Squamous epithelial cells de tection in urine sediment by light microscopyOrdered By: Halle Mac on 08-10-2023 Epithelial cells.squamous LM Ql (Urine sed) None seen [HPF] 0-2 [facility] Transferrin [Mass/volume] in Serum or PlasmaOrdered By: Halle Mac on 08-10-2023 Transferrin [Mass/Vol] 343 mg/dL 203-362 [facility] Urate [Mass/volume] in Serum or PlasmaOrdered By: Halle Mac on 08-10-2023 Urate [Mass/Vol] 8.6 mg/dL High 2.3-6.6 [facility] Urea nitrogen [Mass/volume] in Serum or PlasmaOrdered By: Halle Mac on 08-10-2023 Urea nitrogen [Mass/Vol] 32 mg/dL High 7-25 [facility] Urine bacteria detection by automated methodOrdered By: Halle Mac on 08-10-2023 Bacteria Auto Ql (U) None seen None Seen [facility] Urine clarity by refractomet ry automatedOrdered By: Halle Mac on 08-10-2023 Clarity Refractometry automated (U) Clear Clear [facility] Urine glucose measurement by automated test strip (mass/volume)Ordered By: Halle Mac on 08-10-2023 Glucose Auto test strip (U) [Mass/Vol] Normal mg/dL Normal [facility] Urine hemoglobin detection b y automated test stripOrdered By: Halle Mac on 08-10-2023 Hemoglobin Auto test strip Ql (U) Negative Negative [facility] Urine leukocyte esterase det ection by automated test stripOrdered By: Halle Mac on 08-10-2023 Leukocyte esterase Auto test strip Ql (U) 2+ High Negative [facility] Urine protein/creatinine rat ioOrdered By: Halle Mac on 08-10-2023 Protein/Creatinine (U) [Ratio] TNP [facility] Comment on above: Test not performed Urobilinogen Auto test strip (U) [Mass/Vol]Ordered By: Halle Mac on 08-10-2023 Urobilinogen (U) [Mass/Vol] Normal mg/dL Normal [facility] Vitamin B12 ser/plasOrdered By: Halle Mac on 08-10-2023 Cobalamin (Vitamin B12) [Mass/Vol] 164 pg/mL Low 180-914 [facility] Vitamin D+Metabolites [Mass/ volume] in Serum or PlasmaOrdered By: Halle Mac on 08-10-2023 Vitamin D+Metabolites [Mass/Vol] 22.4 ng/mL Low 30-100 [facility] Comment on above: VITAMIN D STATUS 25( OH)VITAMIN D RANGE (ng/mL) Deficient <20 Insufficient 20 to <30Sufficient 30 to 100Reference: Karen MF,Nicole NC, Ed LI, et al. Evaluation,treatment, and prevention of vitamin D deficiency; an Endocrine Society clinical practice guideline. JCEM. 2010; 96(7):1911-30. pH Auto test strip (U)Ordere d By: Halle Mac on 08-10-2023 pH (U) 5.5 [pH] 5.0-9.0 [facility] Valproate [Mass/volume] in S brunilda or PlasmaOrdered By: Fauzia Huffman on 06-19-2023 Valproate [Mass/Vol] 14.5 ug/mL 50.0-100.0 [facility] Comment on above: Last dose: - Alanine aminotransferase [En zymatic activity/volume] in Serum or PlasmaOrdered By: Halle Mac on 05-17-2023 ALT [Catalytic activity/Vol] 16 U/L 7-52 [facility] Albumin [Mass/volume] in Ser um or Plasma by Bromocresol green (BCG) dye binding methoOrdered By: Halle Mac on 05-17-2023 Albumin BCG dye [Mass/Vol] 4.3 g/dL 3.5-5.7 [facility] Alkaline phosphatase [Enzyma tic activity/volume] in Serum or PlasmaOrdered By: Halle Mac on 05-17-2023 ALP [Catalytic activity/Vol] 61 U/L 34-104 [facility] Aspartate aminotransferase [ Enzymatic activity/volume] in Serum or PlasmaOrdered By: Halle Mac on 05-17-2023 AST [Catalytic activity/Vol] 23 U/L 13-39 [facility] Automated erythrocytes count in urine sediment (number/area)Ordered By: Halle Mac on 05-17-2023 RBC Auto (Urine sed) [#/Area] 3-4 [HPF] 0-4 [facility] Automated leukocytes count i n urine sediment (number/area)Ordered By: Halle Mac on 05-17-2023 WBC Auto (Urine sed) [#/Area] 10-19 [HPF] 0-4 [facility] Bilirubin Test strip Ql (U)O rdered By: Halle Mac on 05-17-2023 Bilirubin Ql (U) 2+ Negative [facility] Bilirubin.total [Mass/volume ] in Serum or PlasmaOrdered By: Halle Mac on 05-17-2023 Bilirubin [Mass/Vol] 0.5 mg/dL 0.3-1.0 [facility] Calcium [Mass/volume] in Ser um or PlasmaOrdered By: Halle Mac on 05-17-2023 Calcium [Mass/Vol] 9.3 mg/dL 8.6-10.3 [facility] Carbon dioxide, total [Moles /volume] in Serum or PlasmaOrdered By: Halle Mac on 05-17-2023 CO2 [Moles/Vol] 28.0 mmol/L 21.0-31.0 [facility] Casts typing in urine sedime nt by light microscopyOrdered By: Halle Mac on 05-17-2023 Casts LM Nom (Urine sed) None seen [LPF] None Seen [facility] Chloride [Moles/volume] in S brunilda or PlasmaOrdered By: Halle Mac on 05-17-2023 Chloride [Moles/Vol] 107 mmol/L 98-107 [facility] Color Auto (U)Ordered By: Donald Mac on 05-17-2023 Color (U) Dark yellow Yellow [facility] Creatinine [Mass/volume] in Serum or PlasmaOrdered By: Halle Mac on 05-17-2023 Creatinine [Mass/Vol] 1.52 mg/dL 0.60-1.20 [facility] Creatinine [Mass/volume] in UrineOrdered By: Halle Mac on 05-17-2023 Creatinine (U) [Mass/Vol] mg/dL 11.0-20.0 [facility] Erythrocyte distribution wid th Auto (RBC) [Ratio]Ordered By: Halle Mac on 05-17-2023 Erythrocyte distribution width (RBC) [Ratio] 13.4 % 11.9-15.3 [facility] Ferritin [Mass/volume] in Se rum or PlasmaOrdered By: Halle Mac on 05-17-2023 Ferritin [Mass/Vol] 51.8 ng/mL 11.0-306.8 [facility] Fine granular cast count in urine sediment by microscopy (number/low power field )Ordered By: Halle Mac on 05-17-2023 Fine Granular Casts LM.LPF (Urine sed) [#/Area] 5-9 [LPF] 0-1 [facility] Globulin Calc (S) [Mass/Vol] Ordered By: Halle Mac on 05-17-2023 Globulin (S) [Mass/Vol] 2.3 g/dL [facility] Glucose [Mass/volume] in Ser um or PlasmaOrdered By: Halle Mac on 05-17-2023 Glucose [Mass/Vol] 123 mg/dL 70-100 [facility] Comment on above: ADA recommended refe rence rangeRandom Glucose Reference Range is dependent on time and content of last meal. Glucose of more than 200 mg/dL in a nonstressed, ambulatory subject supports the diagnosis of Diabetes Mellitus. Hematocrit Auto (Bld) [Volum e fraction]Ordered By: Halle Mac on 05-17-2023 Hematocrit (Bld) [Volume fraction] 36.1 % 34.0-46.4 [facility] Hemoglobin [Mass/volume] in BloodOrdered By: Halle Mac on 05-17-2023 Hemoglobin (Bld) [Mass/Vol] 11.8 g/dL 11.8-15.4 [facility] Iron [Mass/volume] in Serum or PlasmaOrdered By: Halle Mac on 05-17-2023 Iron [Mass/Vol] 57 ug/dL 50-212 [facility] Iron binding capacity [Mass/ volume] in Serum or PlasmaOrdered By: Halle Mac on 05-17-2023 Iron binding capacity [Mass/Vol] 538 ug/dL 255-450 [facility] Iron saturation [Mass Fracti on] in Serum or PlasmaOrdered By: Halle Mac on 05-17-2023 Iron saturation [Mass fraction] 10.6 % 20-50 [facility] Ketones Auto test strip (U) [Mass/Vol]Ordered By: Halle Mac on 05-17-2023 Ketones (U) [Mass/Vol] 1+ Negative [facility] Laboratory - UrinalysisOrder ed By: Halle Mac on 05-17-2023 Hyaline casts LM Ql (Urine sed) None seen [LPF] 0-8 [facility] [facility] [#/volume] correc joaquin for nucleated erythrocytes in Blood by Automated counOrdered By: Halle Mac on 05-17-2023 WBC corrected for nucl RBC Auto (Bld) [#/Vol] 5.5 10*3/uL 3.8-11.6 [facility] MCH Auto (RBC) [Entitic mass ]Ordered By: Halle Mac on 05-17-2023 MCH (RBC) [Entitic mass] 29.4 pg 24.7-34.3 [facility] MCHC Auto (RBC) [Mass/Vol]Or dered By: Halle Mac on 05-17-2023 MCHC (RBC) [Mass/Vol] 32.8 g/dL 32.0-35.0 [facility] MCV Auto (RBC) [Entitic vol] Ordered By: Halle Mac on 05-17-2023 MCV (RBC) [Entitic vol] 89.4 fL 80-100 [facility] Magnesium [Mass/volume] in S brunilda or PlasmaOrdered By: Halle Mac on 05-17-2023 Magnesium [Mass/Vol] 2.0 mg/dL 1.9-2.7 [facility] Mucus LM Ql (Urine sed)Order ed By: Halle Mac on 05-17-2023 Mucus Ql (Urine sed) 3+ [LPF] [facility] Nitrite Test strip Ql (U)Ord ered By: Halle Mac on 05-17-2023 Nitrite Ql (U) Negative Negative [facility] No Panel InformationOrdered By: Halle Mac on 05-17-2023 Estimated GFR (CKD-EPI) 41.013 mL/Min [facility] Creatinine Clearance (Chem N/A [facility] Parathyrin.intact [Mass/volu me] in Serum or PlasmaOrdered By: Halle Mac on 05-17-2023 Parathyrin.intact [Mass/Vol] 36.3 pg/mL 12-88 [facility] Phosphate [Mass/volume] in S brunilda or PlasmaOrdered By: Halle Mac on 05-17-2023 Phosphate [Mass/Vol] 4.4 mg/dL 2.5-4.5 [facility] Platelet mean volume Auto (B ld) [Entitic vol]Ordered By: Halle Mac on 05-17-2023 Platelet mean volume (Bld) [Entitic vol] 9.5 fL 6.3-10.7 [facility] Platelets Auto (Bld) [#/Vol] Ordered By: Halle Mac on 05-17-2023 Platelets (Bld) [#/Vol] 233 10*3/uL 150-450 [facility] Potassium [Moles/volume] in Serum or PlasmaOrdered By: Halle Mac on 05-17-2023 Potassium [Moles/Vol] 3.8 mmol/L 3.5-5.1 [facility] Protein Auto test strip (U) [Mass/Vol]Ordered By: Halle Mac on 05-17-2023 Protein (U) [Mass/Vol] 30 mg/dL Negative [facility] Protein [Mass/volume] in Ser um or PlasmaOrdered By: Halle Mac on 05-17-2023 Protein [Mass/Vol] 6.6 g/dL 6.4-8.9 [facility] Protein [Mass/volume] in Uri neOrdered By: Halle Mac on 05-17-2023 Protein (U) [Mass/Vol] 35 mg/dL 0-9 [facility] RBC Auto (Bld) [#/Vol]Ordere d By: Halle Mac on 05-17-2023 RBC (Bld) [#/Vol] 4.03 10*6/uL 3.60-5.00 [facility] Serum or plasma albumin/glob ulin mass ratioOrdered By: Halle Mac on 05-17-2023 Albumin/Globulin [Mass ratio] 1.9 {ratio} [facility] Serum or plasma anion gap de terminationOrdered By: Halle Mac on 05-17-2023 Anion gap [Moles/Vol] 10.8 mmol/L 6.0-15.0 [facility] Sodium [Moles/volume] in Ser um or PlasmaOrdered By: Halle Mac on 05-17-2023 Sodium [Moles/Vol] 142 mmol/L 136-145 [facility] Specific gravity Auto test s trip (U) [Rel density]Ordered By: Halle Mac on 05-17-2023 Specific gravity (U) [Rel density] 1.025 1.001-1.030 [facility] Squamous epithelial cells de tection in urine sediment by light microscopyOrdered By: Halle Mac on 05-17-2023 Epithelial cells.squamous LM Ql (Urine sed) 3-4 [HPF] 0-2 [facility] Transferrin [Mass/volume] in Serum or PlasmaOrdered By: Halle Mac on 05-17-2023 Transferrin [Mass/Vol] 384 mg/dL 203-362 [facility] Urate [Mass/volume] in Serum or PlasmaOrdered By: Halle Mac on 05-17-2023 Urate [Mass/Vol] 7.3 mg/dL 2.3-6.6 [facility] Urea nitrogen [Mass/volume] in Serum or PlasmaOrdered By: Halle Mac on 05-17-2023 Urea nitrogen [Mass/Vol] 26 mg/dL 7-25 [facility] Urine bacteria detection by automated methodOrdered By: Halle Mac on 05-17-2023 Bacteria Auto Ql (U) None seen None Seen [facility] Urine clarity by refractomet ry automatedOrdered By: Halle Mac on 05-17-2023 Clarity Refractometry automated (U) Cloudy Clear [facility] Urine culture routineOrdered By: Halle Mac on 05-17-2023 Bacteria identified Cx Nom (U) 2 Days [facility] Urine glucose measurement by automated test strip (mass/volume)Ordered By: Halle Mac on 05-17-2023 Glucose Auto test strip (U) [Mass/Vol] Normal mg/dL Normal [facility] Urine hemoglobin detection b y automated test stripOrdered By: Halle Mac on 05-17-2023 Hemoglobin Auto test strip Ql (U) Negative Negative [facility] Urine leukocyte esterase det ection by automated test stripOrdered By: Halle Mac on 05-17-2023 Leukocyte esterase Auto test strip Ql (U) 1+ Negative [facility] Urine protein/creatinine rat ioOrdered By: Halle Mac on 05-17-2023 Protein/Creatinine (U) [Ratio] TNP [facility] Comment on above: Test not performed Urobilinogen Auto test strip (U) [Mass/Vol]Ordered By: Halle Mac on 05-17-2023 Urobilinogen (U) [Mass/Vol] Normal mg/dL Normal [facility] Valproate [Mass/volume] in S brunilda or PlasmaOrdered By: Fauzia Huffman on 05-17-2023 Valproate [Mass/Vol] 24.0 ug/mL 50.0-100.0 [facility] Comment on above: Last dose: - Vitamin D+Metabolites [Mass/ volume] in Serum or PlasmaOrdered By: Halle Mac on 05-17-2023 Vitamin D+Metabolites [Mass/Vol] 24.3 ng/mL 30-100 [facility] Comment on above: VITAMIN D STATUS 25( [...] (Urine sed) None seen [HPF] None Seen [facility] pH Auto test strip (U)Ordere d By: Halle Mac on 05-17-2023 pH (U) 5.0 [pH] 5.0-9.0 [facility] Provider Orderson 05-09-2023 Provider Orders [id number] Normal [facility] BNPon 09-07-2022 Natriuretic peptide B (Bld) [Mass/Vol] 391.0 pg/mL Normal <=900.0 [facility] Comment on above: Performed By: #### L IPID, BMP #### [facility] [address] [place] [address] Dr. Jag Waldrop CBC AUTO DIFFon 09-07-2022 BASO # 0.1 103/ul Normal 0.0-0.1 [facility] Comment on above: Performed By: #### L IPID, BMP #### [facility] [address] [place] [address] Dr. Jag Waldrop Basophils/100 WBC (Bld) 1.4 % Normal 0.2-2.0 [facility] Comment on above: Performed By: #### L IPID, BMP #### [facility] [address] [place] [address] Dr. Jag Waldrop EO # 0.1 103/ul Normal 0.0-0.7 [facility] Comment on above: Performed By: #### L IPID, BMP #### [facility] [address] [place] [address] Dr. Jag Waldrop Eosinophils/100 WBC (Bld) 1.6 % Normal 0.9-7.0 [facility] Comment on above: Performed By: #### L IPID, BMP #### [facility] [address] [place] [address] Dr. Jag Waldrop Erythrocyte distribution width (RBC) [Ratio] 15.0 % Normal 11.0-15.0 [facility] Comment on above: Performed By: #### L IPID, BMP #### [facility] [address] [place] [address] Dr. Jag Waldrop Hematocrit (Bld) [Volume fraction] 37.2 % Normal 36.0-48.0 [facility] Comment on above: Performed By: #### L IPID, BMP #### [facility] [address] [place] [address] Dr. Jag Waldrop Hemoglobin (Bld) [Mass/Vol] 11.6 g/dL Critically low 12.0-16.0 [facility] Comment on above: Performed By: #### L IPID, BMP #### [facility] [address] [place] [address] Dr. Jag Waldrop IG # 0.01 10e3/ul Normal 0.00-0.03 [facility] Comment on above: Performed By: #### L IPID, BMP #### [facility] [address] [place] [address] Dr. Jag Waldrop IG % 0.2 % Normal 0.0-0.5 [facility] Comment on above: Performed By: #### L IPID, BMP #### [facility] [address] [place] [address] Dr. Jag Waldrop LYMPH # 1.9 103/ul Normal 1.2-3.8 [facility] Comment on above: Performed By: #### L IPID, BMP #### [facility] [address] [place] [address] Dr. Jag Waldrop Lymphocytes/100 WBC (Bld) 39.1 % Normal 20.5-60.0 [facility] Comment on above: Performed By: #### L IPID, BMP #### [facility] [address] [place] [address] Dr. Jag Waldrop MANUAL DIFF REQ NO Normal [facility] Comment on above: Performed By: #### L IPID, BMP #### [facility] [address] [place] [address] Dr. Jag Waldrop MCH (RBC) [Entitic mass] 27.5 pg Normal 26.7-34.0 [facility] Comment on above: Performed By: #### L IPID, BMP #### [facility] [address] [place] [address] Dr. Jag Waldrop MCHC (RBC) [Mass/Vol] 31.2 g/dL Normal 29.9-35.2 [facility] Comment on above: Performed By: #### L IPID, BMP #### [facility] [address] [place] [address] Dr. Jag Waldrop MCV (RBC) [Entitic vol] 88.2 fL Normal 81.0-99.0 [facility] Comment on above: Performed By: #### L IPID, BMP #### [facility] [address] [place] [address] Dr. Jag Waldrop MONO # 0.3 103/ul Normal 0.3-0.8 [facility] Comment on above: Performed By: #### L IPID, BMP #### [facility] [address] [place] [address] Dr. Jag Waldrop Monocytes/100 WBC (Bld) 6.5 % Normal 1.7-12.0 [facility] Comment on above: Performed By: #### L IPID, BMP #### [facility] [address] [place] [address] Dr. Jag Waldrop NEUT # 2.5 103/ul Normal 1.4-6.5 [facility] Comment on above: Performed By: #### L IPID, BMP #### [facility] [address] [place] [address] Dr. Jag Waldrop Neutrophils/100 WBC (Bld) 51.2 % Normal 43.0-75.0 [facility] Comment on above: Performed By: #### L IPID, BMP #### [facility] [address] [place] [address] Dr. Jag Waldrop Platelet mean volume (Bld) [Entitic vol] 10.5 fL Normal 9.5-13.5 [facility] Comment on above: Performed By: #### L IPID, BMP #### [facility] [address] [place] [address] Dr. Jag Waldrop PLT 272 103/ul Normal 150-450 [facility] Comment on above: Performed By: #### L IPID, BMP #### [facility] [address] [place] [address] Dr. Jag Waldrop RBC 4.22 106/ul Normal 4.20-5.40 [facility] Comment on above: Performed By: #### L IPID, BMP #### [facility] [address] [place] [address] Dr. Jag Waldrop WBC 4.9 103/ul Normal 4.0-11.0 [facility] Comment on above: Performed By: #### L IPID, BMP #### [facility] [address] [place] [address] Dr. Jag Waldrop ER URINE PROFILEon 3 Bilirubin Ql (U) Negative Normal NEGATIVE [facility] Comment on above: Performed By: #### E RUR #### [facility] [address] [place] [address] Dr. Jag Waldrop Clarity (U) CLEAR Normal CLEAR [facility] Comment on above: Performed By: #### E RUR #### [facility] [address] [place] [address] Dr. Jag Waldrop Color (U) LT. YELLOW Normal YELLOW [facility] Comment on above: Performed By: #### E RUR #### [facility] [address] [place] [address] Dr. Jag SAL A micrscopic examina tion will be performed if indicated. Normal [facility] Comment on above: Performed By: #### E RUR #### [facility] [address] [place] [address] Dr. Jag Waldrop Glucose Ql (U) Negative Normal NEGATIVE [facility] Comment on above: Performed By: #### E RUR #### [facility] [address] [place] [address] Dr. Jag Waldrop Hemoglobin Ql (U) Negative Normal NEGATIVE [facility] Comment on above: Performed By: #### E RUR #### [facility] [address] [place] [address] Dr. Jag Waldrop Ketones Ql (U) Negative Normal NEGATIVE [facility] Comment on above: Performed By: #### E RUR #### [facility] [address] [place] [address] Dr. Jag Waldrop LEUKOCYTES Negative Normal NEGATIVE [facility] Comment on above: Performed By: #### E RUR #### [facility] [address] [place] [address] Dr. Jag Waldrop Nitrite Ql (U) Negative Normal NEGATIVE [facility] Comment on above: Performed By: #### E RUR #### [facility] [address] [place] [address] Dr. Jag Waldrop pH (U) 7.0 [pH] Normal 5-9 [facility] Comment on above: Performed By: #### E RUR #### [facility] [address] [place] [address] Dr. Jag Waldrop SPEC GRAVITY 1.010 Normal 1.005-<=1.0 25 [facility] Comment on above: Performed By: #### E RUR #### [facility] [address] [place] [address] Dr. Jag Waldrop UA PROTEIN Negative Normal NEGATIVE/ TRACE [facility] Comment on above: Performed By: #### E RUR #### [facility] [address] [place] [address] Dr. Jag Waldrop UR MICRO IND NOT INDICATED Normal [facility] Comment on above: Performed By: #### E RUR #### [facility] [address] [place] [address] Dr. Jag Waldrop Urobilinogen Qn (U) 0.2 {Chris'U}/dL Normal 0.2 - 1. 0 [facility] Comment on above: Performed By: #### E RUR #### [facility] [address] [place] [address] Dr. Jag Waldrop PROF 14(COMP METB)on 023 Albumin [Mass/Vol] 3.9 g/dL Normal 3.4-5.0 [facility] Comment on above: Performed By: #### L IPID, BMP #### [facility] [address] [place] [address] Dr. Jag Waldrop Albumin/Globulin [Mass ratio] 1.2 {ratio} Normal [facility] Comment on above: Performed By: #### L IPID, BMP #### [facility] [address] [place] [address] Dr. Jag Waldrop ALP [Catalytic activity/Vol] 95 U/L Normal 46-116 [facility] Comment on above: Performed By: #### L IPID, BMP #### [facility] [address] [place] [address] Dr. Jag Waldrop ALT [Catalytic activity/Vol] 31 U/L Normal 14-59 [facility] Comment on above: Performed By: #### L IPID, BMP #### [facility] [address] [place] [address] Dr. Jag Waldrop Anion gap [Moles/Vol] 12.7 mmol/L Normal [place] Comment on above: Performed By: #### L IPID, BMP #### [facility] [address] [place] [address] Dr. Jag Waldrop AST [Catalytic activity/Vol] 34 U/L Normal 15-37 [facility] Comment on above: Performed By: #### L IPID, BMP #### [facility] [address] [address] [address] Jag Waldrop Bilirubin [Mass/Vol] 0.4 mg/dL Normal 0.2-1.0 [facility] Comment on above: Performed By: #### L IPID, BMP #### [facility] [address] [place] [address] Dr. Jag Waldrop Calcium [Mass/Vol] 9.1 mg/dL Normal 8.5-10.1 [facility] Comment on above: Performed By: #### L IPID, BMP #### [facility] [address] [place] [address] Dr. Jag Waldrop Chloride [Moles/Vol] 107 mmol/L Normal 98-107 [facility] Comment on above: Performed By: #### L IPID, BMP #### [facility] [address] [place] [address] Dr. Jag Waldrop CO2 [Moles/Vol] 28.1 mmol/L Normal 21.0-32.0 [facility] Comment on above: Performed By: #### L IPID, BMP #### [facility] [address] [place] [address] Dr. Jag Waldrop Creatinine [Mass/Vol] 1.18 mg/dL Critically high 0.55-1.02 [facility] Comment on above: Performed By: #### L IPID, BMP #### [facility] [address] [place] [address] Dr. Jag Waldrop EGFR-AF GUAMANIAN 59 mL/min/1.73m2 Critically low >=60 [facility] Comment on above: Performed By: #### L IPID, BMP #### [facility] [address] [place] [address] Dr. Jag Waldrop EGFR-NON AF GUAMANIAN 48 mL/min/1.73m2 Critically low >=60 [facility] Comment on above: Performed By: #### L IPID, BMP #### [facility] [address] [place] [address] Dr. Jag Waldrop Globulin (S) [Mass/Vol] 3.3 g/dL Normal [facility] Comment on above: Performed By: #### L IPID, BMP #### [facility] [address] [address] [address] Jag Waldrop Glucose [Mass/Vol] 111 mg/dL Critically high 74-106 [facility] Comment on above: Performed By: #### L IPID, BMP #### [facility] [address] [place] [address] Dr. Jag Waldrop Potassium [Moles/Vol] 3.8 mmol/L Normal 3.5-5.1 [facility] Comment on above: Performed By: #### L IPID, BMP #### [facility] [address] [address] [address] Jag Waldrop Protein [Mass/Vol] 7.2 g/dL Normal 6.4-8.2 [facility] Comment on above: Performed By: #### L IPID, BMP #### [facility] [address] [place] [address] Dr. Jag Waldrop Sodium [Moles/Vol] 144 mmol/L Normal 136-145 [facility] Comment on above: Performed By: #### L IPID, BMP #### [facility] [address] [address] [address] Jag Waldrop Urea nitrogen [Mass/Vol] 19.0 mg/dL Critically high 7.0-18.0 [facility] Comment on above: Performed By: #### L IPID, BMP #### [facility] [address] [place] [address] Dr. Jag Waldrop Urea nitrogen/Creatinine [Mass ratio] 16.1 mg/mg Normal [facility] Comment on above: Performed By: #### L IPID, BMP #### [facility] [address] [place] [address] Dr. Jag Waldrop PROTIMEon 09-07-2022 INR Coag (PPP) [Relative time] {INR} Normal [facility] Comment on above: Performed By: #### P T #### [facility] [address] [place] [address] Dr. Jag Waldrop INR GUIDELINES SEE BELOW Normal [facility] Comment on above: Result Comment: MARTIN RED INR: 2.0 - 3.0 CONDITIONS NOT LISTED BELOW 2.5 - 3.5 FOR PROSTHETIC HEART VALVE REPLACEMENT 2.5 - 3.5 RECURRENT THROMBOSIS Performed By: #### P T #### [facility] [address] [address] [address] Jag Waldrop PT Coag (PPP) [Time] 9.7 s Normal 9.0-11.6 [facility] Comment on above: Performed By: #### P T #### [facility] [address] [address] [address] Jag Waldrop TROPONIN, HIGH SENSITIVITYon 09-07-2022 HSTROP 17.8 pg/mL Normal 4.0-51.3 [facility] Comment on above: Result Comment: CUT- OFF POINTS HAVE BEEN ESTABLISHED BASED ON THE FOURTH UNIVERSAL DEFINITIONS OF MYOCARDIAL INFARCTION. THE UPPER REFERENCE LIMIT (URL) OF TROPONIN, DEFINED THE 99TH PERCENTILE OF cTnI DISTRIBUTION IN A REFERENCE POPULATION, HAS BEEN CONFIRMED THE DECISION THRESHOLD FOR [place] DIAGNOSIS. Performed By: #### L IPID, BMP #### [facility] [address] [place] [address] Dr. Jag Waldrop XR CHEST 2 Von [...] by: WAN JENKINS Date: 2022-09-07 16:47 Normal [facility] GLYCOHEMOGLOBIN A1Con 2022 ADA RECOMMENDATION SEE BELOW Normal [facility] Comment on above: Result Comment: ADA RECOMMENDED LIMIT 4.0 - 6.0 ADA THERAPEUTIC TARGET < 7.0 ACTION SUGGESTED > 7.0 Performed By: #### L IPID, BMP #### [facility] [address] [place] [address] Dr. Jag Waldrop Glucose [Mass/Vol] 120 mg/dL Normal [facility] Comment on above: Performed By: #### L IPID, BMP #### [facility] [address] [address] [address] Jag Waldrop HbA1c (Bld) [Mass fraction] 5.8 % Normal 4.5-6.2 [facility] Comment on above: Performed By: #### L IPID, BMP #### [facility] [address] [address] [address] Jag Waldrop PROF CHEM 8 (BAS METB)on Anion gap [Moles/Vol] 13.2 mmol/L Normal [facility] Comment on above: Performed By: #### B MP #### [facility] [address] [address] [address] Jag Waldrop Calcium [Mass/Vol] 9.0 mg/dL Normal 8.5-10.1 [facility] Comment on above: Performed By: #### B MP #### [facility] [address] [address] [address] Jag Waldrop Chloride [Moles/Vol] 107 mmol/L Normal 98-107 [facility] Comment on above: Performed By: #### B MP #### [facility] [address] [address] [address] Jag Waldrop CO2 [Moles/Vol] 26.3 mmol/L Normal 21.0-32.0 [facility] Comment on above: Performed By: #### B MP #### [facility] [address] [address] [address] Jag Waldrop Creatinine [Mass/Vol] 1.03 mg/dL Critically high 0.55-1.02 [facility] Comment on above: Performed By: #### B MP #### [facility] [address] [address] [address] Jag Waldrop EGFR-AF GUAMANIAN >60 Normal >=60 [facility] Comment on above: Performed By: #### B MP #### [facility] [address] [address] [address] Jag Waldrop EGFR-NON AF GUAMANIAN 56 mL/min/1.73m2 Critically low >=60 [facility] Comment on above: Performed By: #### B MP #### [facility] [address] [address] [address] Jag Waldrop Glucose [Mass/Vol] 149 mg/dL Critically high 74-106 [facility] Comment on above: Performed By: #### B MP #### [facility] [address] [place], [place] [address] Dr. Jag Waldrop Potassium [Moles/Vol] 4.5 mmol/L Normal 3.5-5.1 [facility] Comment on above: Performed By: #### B MP #### [facility] [address] [address] [address] Jag Waldrop Sodium [Moles/Vol] 142 mmol/L Normal 136-145 [facility] Comment on above: Performed By: #### B MP #### [facility] [address] [address] [address] Jag Waldrop Urea nitrogen [Mass/Vol] 22.0 mg/dL Critically high 7.0-18.0 [facility] Comment on above: Performed By: #### B MP #### [facility] [address] [address] [address] Jag Waldrop Urea nitrogen/Creatinine [Mass ratio] 21.4 mg/mg Normal [facility] Comment on above: Performed By: #### B MP #### [facility] [address] [address] [address] ABD/PELVIS WO CONon [...] NATHAN COLE Date: 2022-05-29 22:50 Normal [facility] US KVNG DOP LEG RTon [...] LUZ COELLO Date: 2022-05-29 22:42 Normal [facility] CBC AUTO DIFFon 05-29-2022 BASO # 0.1 103/ul Normal 0.0-0.1 [facility] Comment on above: Performed By: #### L IPID, BMP #### [facility] [address] [address] [address] Jag Waldrop Basophils/100 WBC (Bld) 0.7 % Normal 0.2-2.0 [facility] Comment on above: Performed By: #### L IPID, BMP #### [facility] [address] [place] [address] Dr. Jag Waldrop EO # 0.1 103/ul Normal 0.0-0.7 [facility] Comment on above: Performed By: #### L IPID, BMP #### [facility] [address] [place] [address] Dr. Jag Waldrop Eosinophils/100 WBC (Bld) 1.5 % Normal 0.9-7.0 [facility] Comment on above: Performed By: #### L IPID, BMP #### [facility] [address] [place] [address] Dr. Jag Waldrop Erythrocyte distribution width (RBC) [Ratio] 13.9 % Normal 11.0-15.0 [facility] Comment on above: Performed By: #### L IPID, BMP #### [facility] [facility] [address] [place] [address] Dr. Jag Waldrop Hematocrit (Bld) [Volume fraction] 34.2 % Critically low 36.0-48.0 [facility] Comment on above: Performed By: #### L IPID, BMP #### [facility] [address] [place] [address] Dr. Jag Waldrop Hemoglobin (Bld) [Mass/Vol] 10.9 g/dL Critically low 12.0-16.0 [facility] Comment on above: Performed By: #### L IPID, BMP #### [facility] [address] [place] [address] Dr. Jag Waldrop IG # 0.02 10e3/ul Normal 0.00-0.03 [facility] Comment on above: Performed By: #### L IPID, BMP #### [facility] [address] [place] [address] Dr. Jag Waldrop IG % 0.2 % Normal 0.0-0.5 [facility] Comment on above: Performed By: #### L IPID, BMP #### [facility] [address] [place] [address] Dr. Jag Waldrop LYMPH # 2.5 103/ul Normal 1.2-3.8 [facility] Comment on above: Performed By: #### L IPID, BMP #### [facility] [address] [place] [address] Dr. Jag Waldrop Lymphocytes/100 WBC (Bld) 30.4 % Normal 20.5-60.0 [facility] Comment on above: Performed By: #### L IPID, BMP #### [facility] [address] [place] [address] Dr. Jag Waldrop MANUAL DIFF REQ NO Normal [facility] Comment on above: Performed By: #### L IPID, BMP #### [facility] [address] [place] [address] Dr. Jag Waldrop MCH (RBC) [Entitic mass] 27.1 pg Normal 26.7-34.0 [facility] Comment on above: Performed By: #### L IPID, BMP #### [facility] [address] [place] [address] Dr. Jag Waldrop MCHC (RBC) [Mass/Vol] 31.9 g/dL Normal 29.9-35.2 [facility] Comment on above: Performed By: #### L IPID, BMP #### [facility] [address] [place] [address] Dr. Jag Waldrop MCV (RBC) [Entitic vol] 85.1 fL Normal 81.0-99.0 [facility] Comment on above: Performed By: #### L IPID, BMP #### [facility] [address] [place] [address] Dr. Jag Waldrop MONO # 0.5 103/ul Normal 0.3-0.8 [facility] Comment on above: Performed By: #### L IPID, BMP #### [facility] [address] [place] [address] Dr. Jag Waldrop Monocytes/100 WBC (Bld) 6.7 % Normal 1.7-12.0 [facility] Comment on above: Performed By: #### L IPID, BMP #### [facility] [address] [place] [address] Dr. Jag Waldrop NEUT # 4.9 103/ul Normal 1.4-6.5 [facility] Comment on above: Performed By: #### L IPID, BMP #### [facility] [address] [place] [address] Dr. Jag Waldrop Neutrophils/100 WBC (Bld) 60.5 % Normal 43.0-75.0 [facility] Comment on above: Performed By: #### L IPID, BMP #### [facility] [address] [place] [address] Dr. Jag Waldrop Platelet mean volume (Bld) [Entitic vol] 10.3 fL Normal 9.5-13.5 [facility] Comment on above: Performed By: #### L IPID, BMP #### [facility] [address] [place] [address] Dr. Jag Waldrop PLT 256 103/ul Normal 150-450 [facility] Comment on above: Performed By: #### L IPID, BMP #### [facility] [address] [place] [address] Dr. Jag Waldrop RBC 4.02 106/ul Critically low 4.20-5.40 [facility] Comment on above: Performed By: #### L IPID, BMP #### [facility] [address] [place] [address] Dr. Jag Waldrop WBC 8.1 103/ul Normal 4.0-11.0 [facility] Comment on above: Performed By: #### L IPID, BMP #### [facility] [address] [place] [address] Dr. Jag Waldrop ER URINE PROFILEon 3 Bilirubin Ql (U) Negative Normal NEGATIVE [facility] Comment on above: Performed By: #### L IPID, BMP #### [facility] [address] [place] [address] Dr. Jag Waldrop Clarity (U) CLEAR Normal CLEAR [facility] Comment on above: Performed By: #### L IPID, BMP #### [facility] [address] [place] [address] Dr. Jag Waldrop Color (U) YELLOW Normal YELLOW [facility] Comment on above: Performed By: #### L IPID, BMP #### [facility] [address] [place] [address] Dr. Jag SOWAHTabitha A micrscopic examina tion will be performed if indicated. Normal [facility] Comment on above: Performed By: #### L IPID, BMP #### [facility] [address] [place] [address] Dr. Jag Waldrop Glucose Ql (U) Negative Normal NEGATIVE [facility] Comment on above: Performed By: #### L IPID, BMP #### [facility] [address] [place] [address] Dr. Jag Waldrop Hemoglobin Ql (U) Negative Normal NEGATIVE [facility] Comment on above: Performed By: #### L IPID, BMP #### [facility] [address] [place] [address] Dr. Jag Waldrop Ketones Ql (U) 15 mg/dl Abnormal NEGATIVE [facility] Comment on above: Performed By: #### L IPID, BMP #### [facility] [address] [place] [address] Dr. Jag Waldrop LEUKOCYTES TRACE Abnormal NEGATIVE [facility] Comment on above: Performed By: #### L IPID, BMP #### [facility] [address] [place] [address] Dr. Jag Waldrop Nitrite Ql (U) Negative Normal NEGATIVE [facility] Comment on above: Performed By: #### L IPID, BMP #### [facility] [address] [place] [address] Dr. Jag Waldrop pH (U) 5.5 [pH] Normal 5-9 [facility] Comment on above: Performed By: #### L IPID, BMP #### [facility] [address] [place] [address] Dr. Jag Waldrop SPEC GRAVITY 1.020 Normal 1.005-<=1.0 25 [facility] Comment on above: Performed By: #### L IPID, BMP #### [facility] [address] [place] [address] Dr. Jag Waldrop UA PROTEIN Negative Normal NEGATIVE/ TRACE [facility] Comment on above: Performed By: #### L IPID, BMP #### [facility] [address] [place] [address] Dr. Jag Waldrop UR MICRO IND INDICATED Normal [facility] Comment on above: Performed By: #### L IPID, BMP #### [facility] [address] [place] [address] Dr. Jag Waldrop Urobilinogen Qn (U) 0.2 {Chris'U}/dL Normal 0.2 - 1. 0 [facility] Comment on above: Performed By: #### L IPID, BMP #### [facility] [address] [place] [address] Dr. Jag Waldrop PROF CHEM 8 (BAS METB)on Anion gap [Moles/Vol] 14.2 mmol/L Normal [place] Comment on above: Performed By: #### B MP #### [facility] [address] [place] [address] Dr. Jag Waldrop Calcium [Mass/Vol] 9.1 mg/dL Normal 8.5-10.1 [facility] Comment on above: Performed By: #### B MP #### [facility] [address] [place] [address] Dr. Jag Waldrop Chloride [Moles/Vol] 106 mmol/L Normal 98-107 [facility] Comment on above: Performed By: #### B MP #### [facility] [address] [place] [address] Dr. Jag Waldrop CO2 [Moles/Vol] 23.5 mmol/L Normal 21.0-32.0 [facility] Comment on above: Performed By: #### B MP #### [facility] [address] [place] [address] Dr. Jag Waldrop Creatinine [Mass/Vol] 1.29 mg/dL Critically high 0.55-1.02 [facility] Comment on above: Performed By: #### B MP #### [facility] [address] [place], [place] [address] Dr. Jag Waldrop EGFR-AF GUAMANIAN 53 mL/min/1.73m2 Critically low >=60 [facility] Comment on above: Performed By: #### B MP #### [facility] [address] [place] [address] Dr. Jag Waldrop EGFR-NON AF GUAMANIAN 44 mL/min/1.73m2 Critically low >=60 [facility] Comment on above: Performed By: #### B MP #### [facility] [address] [address] [address] Jag Waldrop Glucose [Mass/Vol] 93 mg/dL Normal 74-106 [facility] Comment on above: Performed By: #### B MP #### [facility] [address] [place] [address] Dr. Jag Waldrop Potassium [Moles/Vol] 3.7 mmol/L Normal 3.5-5.1 [facility] Comment on above: Performed By: #### B MP #### [facility] [address] [place] [address] Dr. Jag Waldrop Sodium [Moles/Vol] 140 mmol/L Normal 136-145 [facility] Comment on above: Performed By: #### B MP #### [facility] [address] [place] [address] Dr. Jag Waldrop Urea nitrogen [Mass/Vol] 24.0 mg/dL Critically high 7.0-18.0 [facility] Comment on above: Performed By: #### B MP #### [facility] [address] [address] [address] Jag Waldrop Urea nitrogen/Creatinine [Mass ratio] 18.6 mg/mg Normal [facility] Comment on above: Performed By: #### B MP #### [facility] [address] [place] [address] Dr. Jag Waldrop URINE MICROSCOPIC ONLYon BACTERIA TRACE Abnormal NONE SEEN [facility] Comment on above: Performed By: #### L IPID, BMP #### [facility] [address] [place] [address] Dr. Jag Waldrop Bacteria identified Cx Nom (U) NOT INDICATED Normal [facility] Comment on above: Performed By: #### L IPID, BMP #### [facility] [address] [place] [address] Dr. Jag Waldrop CAST NONE SEEN Normal NONE SEEN [facility] Comment on above: Performed By: #### L IPID, BMP #### [facility] [address] [place] [address] Dr. Jag Waldrop Crystals LM Nom (Urine sed) NONE SEEN Normal NONE SEEN [facility] Comment on above: Performed By: #### L IPID, BMP #### [facility] [address] [place] [address] Dr. Jag Waldrop Epithelial cells LM Ql (Urine sed) RARE Normal NONE SEEN /RARE [facility] Comment on above: Performed By: #### L IPID, BMP #### [facility] [address] [place] [address] Dr. Jag Waldrop MUCOUS NONE SEEN Normal NONE SEEN [facility] Comment on above: Performed By: #### L IPID, BMP #### [facility] [address] [place] [address] Dr. Jag Waldrop RBC 5-10 Abnormal 0-2 [facility] Comment on above: Performed By: #### L IPID, BMP #### [facility] [address] [place] [address] Dr. Jag Waldrop WBC 0-2 Abnormal NONE SEEN [facility] Comment on above: Performed By: #### L IPID, BMP #### [facility] [address] [place] [address] Dr. Jag Waldrop MG MAMM SCREEN 3D ORESTES CADon 03-29-2022 MG MAMM SCREEN 3D ORESTES CAD Patient: SHERLY HUMPHREYS Exam Date: 03/29/2022 : 1970 Gender:F Ordering : AGUSTINA LEW [employer] Admission #: [id number] Family : Order #: [id number] CLICK HERE TO VIEW EXAM RADIOLOGY REPORT [...] head/neck cancer at age 73. LOCATION: [facility] BREAST COMPOSITION: Scattered areas fibroglandular density. [...] M.D. on 03/29/2022 at 15:31 Normal [facility] MRI LSPINE WO W CONon [...] KATHY LOBATO Date: 2022-03-23 11:26 Normal [facility] MRI TSPINE WO W CONon 2021 [...] KATHY LOBATO Date: 2022-03-23 12:50 Normal [facility] PROF CHEM 8 (BAS METB)on Anion gap [Moles/Vol] 11.8 mmol/L Normal [place] Comment on above: Performed By: #### P OCGLUC #### [facility] [address] [address] [address] Jag Waldrop Calcium [Mass/Vol] 9.0 mg/dL Normal 8.5-10.1 [facility] Comment on above: Performed By: #### P OCGLUC #### [facility] [address] [address] [address] Jag Waldrop Chloride [Moles/Vol] 107 mmol/L Normal 98-107 [facility] Comment on above: Performed By: #### P OCGLUC #### [facility] [address] [address] [address] Jag Waldrop CO2 [Moles/Vol] 30.2 mmol/L Normal 21.0-32.0 [facility] Comment on above: Performed By: #### P OCGLUC #### [facility] [address] [address] [address] Jag Waldrop Creatinine [Mass/Vol] 1.32 mg/dL Critically high 0.55-1.02 [facility] Comment on above: Performed By: #### P OCGLUC #### [facility] [address] [address] [address] Jag Waldrop EGFR-AF GUAMANIAN 51 mL/min/1.73m2 Critically low >=60 [facility] Comment on above: Performed By: #### P OCGLUC #### [facility] [address] [address] [address] Jag Waldrop EGFR-NON AF GUAMANIAN 42 mL/min/1.73m2 Critically low >=60 [facility] Comment on above: Performed By: #### P OCGLUC #### [facility] [address] [address] [address] Jag Waldrop Glucose [Mass/Vol] 117 mg/dL Critically high 74-106 [facility] Comment on above: Performed By: #### P OCGLUC #### [facility] [address] [address] [address] Jag Waldrop Potassium [Moles/Vol] 4.0 mmol/L Normal 3.5-5.1 [facility] Comment on above: Performed By: #### P OCGLUC #### [facility] [address] [address] [address] Jag Waldrop Sodium [Moles/Vol] 145 mmol/L Normal 136-145 [facility] Comment on above: Performed By: #### P OCGLUC #### [facility] [address] [address] [address] Jag Waldrop Urea nitrogen [Mass/Vol] 23.0 mg/dL Critically high 7.0-18.0 [facility] Comment on above: Performed By: #### P OCGLUC #### [facility] [address] [address] [address] Jag Waldrop Urea nitrogen/Creatinine [Mass ratio] 17.4 mg/mg Normal [facility] Comment on above: Performed By: #### P OCGLUC #### [facility] [address] [address] [address] Jag Waldrop CBC AUTO DIFFon 02-19-2022 BASO # 0.1 103/ul Normal 0.0-0.1 [facility] Comment on above: Performed By: #### P OCGLUC #### [facility] [address] [address] [address] Jag Waldrop Basophils/100 WBC (Bld) 1.0 % Normal 0.2-2.0 [facility] Comment on above: Performed By: #### P OCGLUC #### [facility] [address] [place] [address] Dr. Jag Waldrop EO # 0.1 103/ul Normal 0.0-0.7 [facility] Comment on above: Performed By: #### P OCGLUC #### [facility] [address] [place] [address] Dr. Jag Waldrop Eosinophils/100 WBC (Bld) 1.9 % Normal 0.9-7.0 [facility] Comment on above: Performed By: #### P OCGLUC #### [facility] [address] [place] [address] Dr. Jag Waldrop Erythrocyte distribution width (RBC) [Ratio] 13.2 % Normal 11.0-15.0 [facility] Comment on above: Performed By: #### P OCGLUC #### [facility] [address] [place] [address] Dr. Jag Waldrop Hematocrit (Bld) [Volume fraction] 36.7 % Normal 36.0-48.0 [facility] Comment on above: Performed By: #### P OCGLUC #### [facility] [address] [place] [address] Dr. Jag Waldrop Hemoglobin (Bld) [Mass/Vol] 11.4 g/dL Critically low 12.0-16.0 [facility] Comment on above: Performed By: #### P OCGLUC #### [facility] [address] [place] [address] Dr. Jag Waldrop IG # 0.03 10e3/ul Normal 0.00-0.03 [facility] Comment on above: Performed By: #### P OCGLUC #### [facility] [address] [place] [address] Dr. Jag Waldrop IG % 0.5 % Normal 0.0-0.5 [facility] Comment on above: Performed By: #### P OCGLUC #### [facility] [address] [place] [address] Dr. Jag Waldrop LYMPH # 2.1 103/ul Normal 1.2-3.8 [facility] Comment on above: Performed By: #### P OCGLUC #### [facility] [address] [place] [address] Dr. Jag Waldrop Lymphocytes/100 WBC (Bld) 34.1 % Normal 20.5-60.0 [facility] Comment on above: Performed By: #### P OCGLUC #### [facility] [address] [place] [address] Dr. Jag Waldrop MANUAL DIFF REQ NO Normal [facility] Comment on above: Performed By: #### P OCGLUC #### [facility] [address] [place] [address] Dr. Jag Waldrop MCH (RBC) [Entitic mass] 28.4 pg Normal 26.7-34.0 [facility] Comment on above: Performed By: #### P OCGLUC #### [facility] [address] [place] [address] Dr. Jag Waldrop MCHC (RBC) [Mass/Vol] 31.1 g/dL Normal 29.9-35.2 [facility] Comment on above: Performed By: #### P OCGLUC #### [facility] [address] [place] [address] Dr. Jag Waldrop MCV (RBC) [Entitic vol] 91.5 fL Normal 81.0-99.0 [facility] Comment on above: Performed By: #### P OCGLUC #### [facility] [address] [address] [address] Jag Waldrop MONO # 0.5 103/ul Normal 0.3-0.8 [facility] Comment on above: Performed By: #### P OCGLUC #### [facility] [address] [address] [address] Jag Waldrop Monocytes/100 WBC (Bld) 8.4 % Normal 1.7-12.0 [facility] Comment on above: Performed By: #### P OCGLUC #### [facility] [address] [place] [address] Dr. Jag Waldrop NEUT # 3.3 103/ul Normal 1.4-6.5 [facility] Comment on above: Performed By: #### P OCGLUC #### [facility] [address] [place] [address] Dr. Jag Waldrop Neutrophils/100 WBC (Bld) 54.1 % Normal 43.0-75.0 [facility] Comment on above: Performed By: #### P OCGLUC #### [facility] [address] [place] [address] Dr. Jag Waldrop Platelet mean volume (Bld) [Entitic vol] 10.6 fL Normal 9.5-13.5 [facility] Comment on above: Performed By: #### P OCGLUC #### [facility] [address] [place] [address] Dr. Jag Waldrop PLT 294 103/ul Normal 150-450 [facility] Comment on above: Performed By: #### P OCGLUC #### [facility] [address] [address] [address] Jag Waldrop RBC 4.01 106/ul Critically low 4.20-5.40 [facility] Comment on above: Performed By: #### P OCGLUC #### [facility] [address] [place] [address] Dr. Jag Waldrop WBC 6.2 103/ul Normal 4.0-11.0 [facility] Comment on above: Performed By: #### P OCGLUC #### [facility] [address] [address] [address] Jag Waldrop CRPon 02-19-2022 CRP [Mass/Vol] mg/L Normal <=1.0 [facility] Comment on above: Performed By: #### E RUR #### [facility] [address] [place] [address] TSPINE WO CONon [...] ALEX AVINA Date: 2022-02-19 19:25 Normal [facility] ER URINE PROFILEon 2 Bilirubin Ql (U) Negative Normal NEGATIVE [facility] Comment on above: Performed By: #### P OCGLUC #### [facility] [address] [place] [address] Dr. Jag Waldrop Clarity (U) CLEAR Normal CLEAR [facility] Comment on above: Performed By: #### P OCGLUC #### [facility] [address] [place] [address] Dr. Jag Waldrop Color (U) LT. YELLOW Normal YELLOW [facility] Comment on above: Performed By: #### P OCGLUC #### [facility] [address] [address] [address] Jag SAL A micrscopic examina tion will be performed if indicated. Normal [facility] Comment on above: Performed By: #### P OCGLUC #### [facility] [address] [address] [address] Jag Waldrop Glucose Ql (U) Negative Normal NEGATIVE [facility] Comment on above: Performed By: #### P OCGLUC #### [facility] [address] [address] [address] Jag Waldrop Hemoglobin Ql (U) Negative Normal NEGATIVE [facility] Comment on above: Performed By: #### P OCGLUC #### [facility] [address] [address] [address] Jag Waldrop Ketones Ql (U) Negative Normal NEGATIVE [facility] Comment on above: Performed By: #### P OCGLUC #### [facility] [address] [address] [address] Jag Waldrop LEUKOCYTES Negative Normal NEGATIVE [facility] Comment on above: Performed By: #### P OCGLUC #### [facility] [address] [address] [address] Jag Waldrop Nitrite Ql (U) Negative Normal NEGATIVE [facility] Comment on above: Performed By: #### P OCGLUC #### [facility] [address] [address] [address] Jag Waldrop pH (U) 5.5 [pH] Normal 5-9 [facility] Comment on above: Performed By: #### P OCGLUC #### [facility] [address] [address] [address] Jag Waldrop SPEC GRAVITY 1.020 Normal 1.005-<=1.0 25 [facility] Comment on above: Performed By: #### P OCGLUC #### [facility] [address] [address] [address] Jag Waldrop UA PROTEIN Negative Normal NEGATIVE/ TRACE [facility] Comment on above: Performed By: #### P OCGLUC #### [facility] [address] [place] [address] Dr. Jag Waldrop UR MICRO IND NOT INDICATED Normal [facility] Comment on above: Performed By: #### P OCGLUC #### [facility] [address] [place] [address] Dr. Jag Waldrop Urobilinogen Qn (U) 0.2 {Chris'U}/dL Normal 0.2 - 1. 0 [facility] Comment on above: Performed By: #### P OCGLUC #### [facility] [address] [place] [address] Dr. Jag Waldrop PROF CHEM 8 (BAS METB)on Anion gap [Moles/Vol] 10.8 mmol/L Normal [place] Comment on above: Performed By: #### E RUR #### [facility] [address] [place] [address] Dr. Jag Waldrop Calcium [Mass/Vol] 9.0 mg/dL Normal 8.5-10.1 [facility] Comment on above: Performed By: #### E RUR #### [facility] [address] [place] [address] Dr. Jag Waldrop Chloride [Moles/Vol] 106 mmol/L Normal 98-107 [facility] Comment on above: Performed By: #### E RUR #### [facility] [address] [place] [address] Dr. Jag Waldrop CO2 [Moles/Vol] 28.1 mmol/L Normal 21.0-32.0 [facility] Comment on above: Performed By: #### E RUR #### [facility] [address] [place] [address] Dr. Jag Waldrop Creatinine [Mass/Vol] 1.06 mg/dL Critically high 0.55-1.02 [facility] Comment on above: Performed By: #### E RUR #### [facility] [address] [place] [address] Dr. Jag Waldrop EGFR-AF GUAMANIAN >60 Normal >=60 [facility] Comment on above: Performed By: #### E RUR #### [facility] [address] [address] [address] Jag Waldrop EGFR-NON AF GUAMANIAN 55 mL/min/1.73m2 Critically low >=60 [facility] Comment on above: Performed By: #### E RUR #### [facility] [address] [address] [address] Jag Waldrop Glucose [Mass/Vol] 89 mg/dL Normal 74-106 [facility] Comment on above: Performed By: #### E RUR #### [facility] [address] [address] [address] Jag Waldrop Potassium [Moles/Vol] 3.9 mmol/L Normal 3.5-5.1 [facility] Comment on above: Performed By: #### E RUR #### [facility] [address] [place] [address] Dr. Jag Waldrop Sodium [Moles/Vol] 141 mmol/L Normal 136-145 [facility] [facility] Comment on above: Performed By: #### E RUR #### [facility] [address] [address] [address] Jag Waldrop Urea nitrogen [Mass/Vol] 19.0 mg/dL Critically high 7.0-18.0 [facility] Comment on above: Performed By: #### E RUR #### [facility] [address] [place] [address] Dr. Jag Waldrop Urea nitrogen/Creatinine [Mass ratio] 17.9 mg/mg Normal [facility] Comment on above: Performed By: #### E RUR #### [facility] [address] [address] [address] Jag [facility] 19 mm/hr Normal <=30 [facility] Comment on above: Performed By: #### L IPID, BMP #### [facility] [address] [place] [address] Dr. Jag Waldrop PROF CHEM 8 (BAS METB)on Anion gap [Moles/Vol] 17.3 mmol/L Normal [facility] Comment on above: Performed By: #### L IPID, BMP #### [facility] [address] [place] [address] Dr. Jag Waldrop Calcium [Mass/Vol] 9.2 mg/dL Normal 8.5-10.1 [facility] Comment on above: Performed By: #### L IPID, BMP #### [facility] [address] [place] [address] Dr. Jag Waldrop Chloride [Moles/Vol] 108 mmol/L Critically high 98-107 [facility] Comment on above: Performed By: #### L IPID, BMP #### [facility] [address] [place] [address] Dr. Jag Waldrop CO2 [Moles/Vol] 20.0 mmol/L Critically low 21.0-32.0 [facility] Comment on above: Performed By: #### L IPID, BMP #### [facility] [address] [place] [address] Dr. Jag Waldrop Creatinine [Mass/Vol] 1.40 mg/dL Critically high 0.55-1.02 [facility] Comment on above: Performed By: #### L IPID, BMP #### [facility] [address] [place] [address] Dr. Jag Waldrop EGFR-AF GUAMANIAN 48 mL/min/1.73m2 Critically low >=60 [facility] Comment on above: Performed By: #### L IPID, BMP #### [facility] [address] [place] [address] Dr. Jag Waldrop EGFR-NON AF GUAMANIAN 40 mL/min/1.73m2 Critically low >=60 [facility] Comment on above: Performed By: #### L IPID, BMP #### [facility] [address] [place] [address] Dr. Jag Waldrop Glucose [Mass/Vol] 126 mg/dL Critically high 74-106 [facility] Comment on above: Performed By: #### L IPID, BMP #### [facility] [address] [place] [address] Dr. Jag Waldrop Potassium [Moles/Vol] 5.3 mmol/L Critically high 3.5-5.1 [facility] Comment on above: Performed By: #### L IPID, BMP #### [facility] [address] [place] [address] Dr. Jag Waldrop Sodium [Moles/Vol] 140 mmol/L Normal 136-145 [facility] Comment on above: Performed By: #### L IPID, BMP #### [facility] [address] [place] [address] Dr. Jag Waldrop Urea nitrogen [Mass/Vol] 31.0 mg/dL Critically high 7.0-18.0 [facility] Comment on above: Performed By: #### L IPID, BMP #### [facility] [address] [place] [address] Dr. Jag Waldrop Urea nitrogen/Creatinine [Mass ratio] 22.1 mg/mg Normal [facility] Comment on above: Performed By: #### L IPID, BMP #### [facility] [address] [place] [address] Dr. Jag Waldrop CBC AUTO DIFFon 01-23-2022 BASO # 0.1 103/ul Normal 0.0-0.1 [facility] Comment on above: Performed By: #### C BC #### [facility] [address] [place] [address] Dr. Jag Waldrop Basophils/100 WBC (Bld) 1.0 % Normal 0.2-2.0 [facility] Comment on above: Performed By: #### C BC #### [facility] [address] [place] [address] Dr. Jag Waldrop EO # 0.2 103/ul Normal 0.0-0.7 [facility] Comment on above: Performed By: #### C BC #### [facility] [address] [place] [address] Dr. Jag Waldrop Eosinophils/100 WBC (Bld) 3.3 % Normal 0.9-7.0 [facility] Comment on above: Performed By: #### C BC #### [facility] [address] [place] [address] Dr. Jag Waldrop Erythrocyte distribution width (RBC) [Ratio] 13.2 % Normal 11.0-15.0 [facility] Comment on above: Performed By: #### C BC #### [facility] [address] [place] [address] Dr. Jag Waldrop Hematocrit (Bld) [Volume fraction] 35.6 % Critically low 36.0-48.0 [facility] Comment on above: Performed By: #### C BC #### [facility] [address] [place] [address] Dr. Jag Waldrop Hemoglobin (Bld) [Mass/Vol] 10.6 g/dL Critically low 12.0-16.0 [facility] Comment on above: Performed By: #### C BC #### [facility] [address] [place] [address] Dr. Jag Waldrop IG # 0.01 10e3/ul Normal 0.00-0.03 [facility] Comment on above: Performed By: #### C BC #### [facility] [address] [place] [address] Dr. Jag Waldrop IG % 0.2 % Normal 0.0-0.5 [facility] Comment on above: Performed By: #### C BC #### [facility] [address] [place] [address] Dr. Jag Waldrop LYMPH # 1.7 103/ul Normal 1.2-3.8 [facility] Comment on above: Performed By: #### C BC #### [facility] [address] [place] [address] Dr. Jag Waldrop Lymphocytes/100 WBC (Bld) 35.4 % Normal 20.5-60.0 [facility] Comment on above: Performed By: #### C BC #### [facility] [address] [place] [address] Dr. Jag Waldrop MANUAL DIFF REQ NO Normal [facility] Comment on above: Performed By: #### C BC #### [facility] [address] [place] [address] Dr. Jag Waldrop MCH (RBC) [Entitic mass] 29.0 pg Normal 26.7-34.0 [facility] Comment on above: Performed By: #### C BC #### [facility] [address] [place] [address] Dr. Jag Waldrop MCHC (RBC) [Mass/Vol] 29.8 g/dL Critically low 29.9-35.2 [facility] Comment on above: Performed By: #### C BC #### [facility] [address] [place] [address] Dr. Jag Waldrop MCV (RBC) [Entitic vol] 97.3 fL Normal 81.0-99.0 [facility] Comment on above: Performed By: #### C BC #### [facility] [address] [place] [address] Dr. Jag Waldrop MONO # 0.3 103/ul Normal 0.3-0.8 [facility] Comment on above: Performed By: #### C BC #### [facility] [address] [place] [address] Dr. Jag Waldrop Monocytes/100 WBC (Bld) 6.8 % Normal 1.7-12.0 [facility] Comment on above: Performed By: #### C BC #### [facility] [address] [place] [address] Dr. Jag Waldrop NEUT # 2.6 103/ul Normal 1.4-6.5 [facility] Comment on above: Performed By: #### C BC #### [facility] [address] [place] [address] Dr. Jag Waldrop Neutrophils/100 WBC (Bld) 53.3 % Normal 43.0-75.0 [facility] Comment on above: Performed By: #### C BC #### [facility] [address] [place] [address] Dr. Jag Waldrop Platelet mean volume (Bld) [Entitic vol] 11.0 fL Normal 9.5-13.5 [facility] Comment on above: Performed By: #### C BC #### [facility] [address] [place] [address] Dr. Jag Waldrop PLT 230 103/ul Normal 150-450 [facility] Comment on above: Performed By: #### C BC #### [facility] [address] [place] [address] Dr. Jag Waldrop RBC 3.66 106/ul Critically low 4.20-5.40 [facility] Comment on above: Performed By: #### C BC #### [facility] [address] [place] [address] Dr. Jag Waldrop WBC 4.8 103/ul Normal 4.0-11.0 [facility] Comment on above: Performed By: #### C BC #### [facility] [address] [place] [address] Dr. Jag Waldrop FERRITINon 01-23-2022 Ferritin [Mass/Vol] 35.0 ng/mL Normal 8.0-252.0 [facility] Comment on above: Performed By: #### L IPID, BMP #### [facility] [address] [place] [address] Dr. Jag Waldrop IRONon 01-23-2022 Iron [Mass/Vol] 71.0 ug/dL Normal 50.0-170.0 [facility] Comment on above: Performed By: #### L IPID, BMP #### [facility] [address] [place] [address] Dr. Jag Waldrop LIPID PROFILEon 01-23-2022 CHOL-HDL RATIO NORM SEE BELOW Normal [facility] Comment on above: Result Comment: 3.3 - 4.4 LOW RISK 4.4 - 7.1 AVERAGE RISK 7.1 - 11.0 MODERATE RISK >11.0 HIGH RISK Performed By: #### L IPID, BMP #### [facility] [address] [place] [address] Dr. Jag Waldrop Cholesterol [Mass/Vol] 133 mg/dL Normal <=200 [facility] Comment on above: Performed By: #### L IPID, BMP #### [facility] [address] [place] [address] Dr. Jag Waldrop Cholesterol in HDL [Mass/Vol] 41 mg/dL Normal 40-60 [facility] Comment on above: Performed By: #### L IPID, BMP #### [facility] [address] [place] [address] Dr. Jag Waldrop Cholesterol in LDL [Mass/Vol] 70.8 mg/dL Normal [facility] Comment on above: Performed By: #### L IPID, BMP #### [facility] [address] [place] [address] Dr. Jag Waldrop Cholesterol.total/Chol esterol in HDL [Mass ratio] 3.2 {ratio} Normal [facility] Comment on above: Performed By: #### L IPID, BMP #### [facility] [address] [place] [address] Dr. Jag Waldrop HDL NORMAL > or = 60 mg/dl - LO W CARDIOVASCULAR RISK <40 mg/dl - HIGH CARDIOVASCULAR RISK Normal [facility] Comment on above: Performed By: #### L IPID, BMP #### [facility] [address] [place] [address] Dr. Jag Waldrop LDL CALC NORMAL SEE BELOW Normal [facility] Comment on above: Result Comment: <100 mg/dl OPTIMAL 100 - 129 mg/dl NEAR OR ABOVE OPTIMAL 130 - 159 mg/dl BORDERLINE HIGH 160 - 189 mg/dl HIGH >190 mg/dl VERY HIGH Performed By: #### L IPID, BMP #### [facility] [address] [place] [address] Dr. Jag Waldrop Triglyceride [Mass/Vol] 106 mg/dL Normal <=150 [facility] Comment on above: Performed By: #### L IPID, BMP #### [facility] [address] [place] [address] Dr. Jag Waldrop VLDL CALC 21.2 mg/dL Normal [facility] Comment on above: Performed By: #### L IPID, BMP #### [facility] [address] [place] [address] Dr. Jag Waldrop PROF CHEM 8 (BAS METB)on Anion gap [Moles/Vol] 18.2 mmol/L Normal [place] Comment on above: Performed By: #### L IPID, BMP #### [facility] [address] [address] [address] Jag Waldrop Calcium [Mass/Vol] 9.3 mg/dL Normal 8.5-10.1 [facility] Comment on above: Performed By: #### L IPID, BMP #### [facility] [address] [place] [address] Dr. Jag Waldrop Chloride [Moles/Vol] 111 mmol/L Critically high 98-107 [facility] Comment on above: Performed By: #### L IPID, BMP #### [facility] [address] [place] [address] Dr. Jag Waldrop CO2 [Moles/Vol] 19.9 mmol/L Critically low 21.0-32.0 [facility] Comment on above: Performed By: #### L IPID, BMP #### [facility] [address] [place] [address] Dr. Jag Waldrop Creatinine [Mass/Vol] 1.27 mg/dL Critically high 0.55-1.02 [facility] Comment on above: Performed By: #### L IPID, BMP #### [facility] [address] [place] [address] Dr. Jag Waldrop EGFR-AF GUAMANIAN 54 mL/min/1.73m2 Critically low >=60 [facility] Comment on above: Performed By: #### L IPID, BMP #### [facility] [address] [place] [address] Dr. Jag Waldrop EGFR-NON AF GUAMANIAN 44 mL/min/1.73m2 Critically low >=60 [facility] Comment on above: Performed By: #### L IPID, BMP #### [facility] [address] [place] [address] Dr. Jag Waldrop Glucose [Mass/Vol] 129 mg/dL Critically high 74-106 [facility] Comment on above: Performed By: #### L IPID, BMP #### [facility] [address] [place] [address] Dr. Jag Waldrop Potassium [Moles/Vol] 6.1 mmol/L Critically high 3.5-5.1 [facility] Comment on above: Performed By: #### L IPID, BMP #### [facility] [address] [address] [address] Jag Waldrop Sodium [Moles/Vol] 142 mmol/L Normal 136-145 [facility] Comment on above: Performed By: #### L IPID, BMP #### [facility] [address] [place] [address] Dr. Jag Waldrop Urea nitrogen [Mass/Vol] 35.0 mg/dL Critically high 7.0-18.0 [facility] Comment on above: Performed By: #### L IPID, BMP #### [facility] [address] [place] [address] Dr. Jag Waldrop Urea nitrogen/Creatinine [Mass ratio] 27.6 mg/mg Normal [facility] Comment on above: Performed By: #### L IPID, BMP #### [facility] [address] [place] [address] Dr. Jag Waldrop VITAMIN B12on 01-23-2022 Cobalamin (Vitamin B12) [Mass/Vol] 267.0 pg/mL Normal 193.0-986.0 [facility] Comment on above: Performed By: #### L IPID, BMP #### [facility] [address] [place] [address] Dr. Jag Waldrop XR CSPINE 2_3 VIEWSon [...] by: KATHY LOBATO Date: 2022-01-12 09:39 Normal [facility] BNPon 12-21-2021 Natriuretic peptide B (Bld) [Mass/Vol] 283.0 pg/mL Normal <=900.0 [facility] Comment on above: Performed By: #### P OCGLUC #### [facility] [address] [place] [address] Dr. Jag Waldrop CBC AUTO DIFFon 12-21-2021 BASO # 0.1 103/ul Normal 0.0-0.1 [facility] Comment on above: Performed By: #### L IPID, BMP #### [facility] [address] [place] [address] Dr. Jag aWldrop Basophils/100 WBC (Bld) 0.8 % Normal 0.2-2.0 [facility] Comment on above: Performed By: #### L IPID, BMP #### [facility] [address] [place] [address] Dr. Jag Waldrop EO # 0.3 103/ul Normal 0.0-0.7 [facility] Comment on above: Performed By: #### L IPID, BMP #### [facility] [address] [place] [address] Dr. Jag Waldrop Eosinophils/100 WBC (Bld) 3.8 % Normal 0.9-7.0 [facility] Comment on above: Performed By: #### L IPID, BMP #### [facility] [address] [place] [address] Dr. Jag Waldrop Erythrocyte distribution width (RBC) [Ratio] 13.2 % Normal 11.0-15.0 [facility] Comment on above: Performed By: #### L IPID, BMP #### [facility] [address] [place] [address] Dr. Jag Waldrop Hematocrit (Bld) [Volume fraction] 34.8 % Critically low 36.0-48.0 [facility] Comment on above: Performed By: #### L IPID, BMP #### [facility] [address] [place] [address] Dr. Jag Waldrop Hemoglobin (Bld) [Mass/Vol] 10.6 g/dL Critically low 12.0-16.0 [facility] Comment on above: Performed By: #### L IPID, BMP #### [facility] [address] [address] [address] Jag Waldrop IG # 0.02 10e3/ul Normal 0.00-0.03 [facility] Comment on above: Performed By: #### L IPID, BMP #### [facility] [address] [address] [address] Jag Waldrop IG % 0.3 % Normal 0.0-0.5 [facility] Comment on above: Performed By: #### L IPID, BMP #### [facility] [address] [address] [address] Jag Waldrop LYMPH # 1.7 103/ul Normal 1.2-3.8 [facility] Comment on above: Performed By: #### L IPID, BMP #### [facility] [address] [address] [address] Jag Waldrop Lymphocytes/100 WBC (Bld) 23.8 % Normal 20.5-60.0 [facility] Comment on above: Performed By: #### L IPID, BMP #### [facility] [address] [address] [address] Jag Waldrop MANUAL DIFF REQ NO Normal [facility] Comment on above: Performed By: #### L IPID, BMP #### [facility] [address] [address] [address] Jag Waldrop MCH (RBC) [Entitic mass] 29.1 pg Normal 26.7-34.0 [facility] Comment on above: Performed By: #### L IPID, BMP #### [facility] [address] [address] [address] Jag Waldrop MCHC (RBC) [Mass/Vol] 30.5 g/dL Normal 29.9-35.2 [facility] Comment on above: Performed By: #### L IPID, BMP #### [facility] [address] [address] [address] Jag Waldrop MCV (RBC) [Entitic vol] 95.6 fL Normal 81.0-99.0 [facility] Comment on above: Performed By: #### L IPID, BMP #### [facility] [address] [place] [address] Dr. Jag Waldrop MONO # 0.7 103/ul Normal 0.3-0.8 [facility] Comment on above: Performed By: #### L IPID, BMP #### [facility] [address] [place] [address] Dr. Jag Waldrop Monocytes/100 WBC (Bld) 9.3 % Normal 1.7-12.0 [facility] Comment on above: Performed By: #### L IPID, BMP #### [facility] [address] [place] [address] Dr. Jag Waldrop NEUT # 4.4 103/ul Normal 1.4-6.5 [facility] Comment on above: Performed By: #### L IPID, BMP #### [facility] [address] [place] [address] Dr. Jag Waldrop Neutrophils/100 WBC (Bld) 62.0 % Normal 43.0-75.0 [facility] Comment on above: Performed By: #### L IPID, BMP #### [facility] [address] [place] [address] Dr. Jag Waldrop Platelet mean volume (Bld) [Entitic vol] 11.5 fL Normal 9.5-13.5 [facility] Comment on above: Performed By: #### L IPID, BMP #### [facility] [address] [place] [address] Dr. Jag Waldrop PLT 235 103/ul Normal 150-450 [facility] Comment on above: Performed By: #### L IPID, BMP #### [facility] [address] [place] [address] Dr. Jag Waldrop RBC 3.64 106/ul Critically low 4.20-5.40 [facility] Comment on above: Performed By: #### L IPID, BMP #### [facility] [address] [place] [address] Dr. Jga Waldrop WBC 7.1 103/ul Normal 4.0-11.0 [facility] Comment on above: Performed By: #### L IPID, BMP #### [facility] [address] [place] [address] Dr. Jag Waldrop CRPon 12-21-2021 CRP 1.1 mg/dL Critically high <=1.0 [facility] Comment on above: Performed By: #### B MP #### [facility] [address] [place] [address] Dr. Jag Waldrop Covid-19 PCR ([facility])on SARS-CoV-2 (COVID-19) RNA PRINCE+probe Ql (Unsp spec) Not detected Normal NOT DETECTED [facility] Comment on above: Result Comment: This test is not yet approved or cleared by the [place] FDA. When there are no FDA-approved or cleared tests available, and other criteria are met, FDA can make tests available under an emergency access mechanism called an Emergency Use Authorization (EUA). The EUA for this test is supported by the [place] [employer] of Health and Human Service's (HHS's) declaration [...] Performed By: #### L IPID, BMP #### [facility] [address] [place] [address] [id number] [address] Jag Waldrop PROF CHEM 8 (BAS METB)on Anion gap [Moles/Vol] 13.3 mmol/L Normal [place] Comment on above: Performed By: #### B MP #### [facility] [address] [place] [address] [id number] [address] Jag Waldrop Calcium [Mass/Vol] 8.7 mg/dL Normal 8.5-10.1 [facility] Comment on above: Performed By: #### B MP #### [facility] [address] [address] [address] Jag Waldrop Chloride [Moles/Vol] 107 mmol/L Normal 98-107 [facility] Comment on above: Performed By: #### B MP #### [facility] [address] [address] [address] Jag Waldrop CO2 [Moles/Vol] 23.2 mmol/L Normal 21.0-32.0 [facility] Comment on above: Performed By: #### B MP #### [facility] [address] [address] [address] Jag Waldrop Creatinine [Mass/Vol] 1.55 mg/dL Critically high 0.55-1.02 [facility] Comment on above: Performed By: #### B MP #### [facility] [address] [address] [address] Jag Waldrop EGFR-AF GUAMANIAN 43 mL/min/1.73m2 Critically low >=60 [facility] Comment on above: Performed By: #### B MP #### [facility] [address] [address] [address] Jag Waldrop EGFR-NON AF GUAMANIAN 35 mL/min/1.73m2 Critically low >=60 [facility] Comment on above: Performed By: #### B MP #### [facility] [address] [address] [address] Jag Waldrop Glucose [Mass/Vol] 123 mg/dL Critically high 74-106 [facility] Comment on above: Performed By: #### B MP #### [facility] [address] [address] [address] Jag Waldrop Potassium [Moles/Vol] 4.5 mmol/L Normal 3.5-5.1 [facility] Comment on above: Performed By: #### B MP #### [facility] [address] [address] [address] Jag Waldrop Sodium [Moles/Vol] 139 mmol/L Normal 136-145 [facility] Comment on above: Performed By: #### B MP #### [facility] [address] [address] [address] Jag Waldrop Urea nitrogen [Mass/Vol] 36.0 mg/dL Critically high 7.0-18.0 [facility] Comment on above: Performed By: #### B MP #### [facility] [address] [address] [address] Jag Waldrop Urea nitrogen/Creatinine [Mass ratio] 23.2 mg/mg Normal [facility] Comment on above: Performed By: #### B MP #### [facility] [address] [address] [address] [facility] mm/hr Normal <=30 [facility] Comment on above: Performed By: #### S EDR #### [facility] [address] [address] [address] Jag Waldorp XR CHEST 2 Von 12-21-2021 XR CHEST [...] ALEX ALLEN Date: 2021-12-21 18:35 Normal [facility] OVA AND PARASITE EXAMINATION on 12-06-2021 Ova + Parasite Exam Final report Normal [facility] Comment on above: Result Comment: Thes e results were obtained using wet preparation(s) and trichrome stained smear. This test does not include testing for Cryptosporidium parvum, Cyclospora, or Microsporidia. Performed By: #### L IPID, BMP #### [facility] [address] [place] [address] Dr. Jag Waldrop Result 1 Comment Normal [facility] Comment on above: Result Comment: No o va, cysts, or parasites seen. . One negative specimen does not rule out the possibility of a parasitic infection. Performed By: #### L IPID, BMP #### [facility] [address] [place] [address] Dr. Jag Waldrop STOOL CULTUREon 12-05-2021 Campylobacter Culture Final report Normal [facility] Comment on above: Performed By: #### C XSTOOL #### [facility] [address] [place] [address] Dr. Jag Waldrop E coli Shiga Toxin EIA Negative Normal Negative [place] Comment on above: Performed By: #### C XSTOOL #### [facility] [address] [place] [address] Dr. Jag Waldrop Result 1 Comment Normal [facility] Comment on above: Result Comment: No S almonella or Shigella recovered. Performed By: #### C XSTOOL #### [facility] [address] [place] [address] Dr. Jag Waldrop Result Comment: No C ampylobacter species isolated. Salmonella/Shigella Screen Final report Normal [facility] Comment on above: Performed By: #### C XSTOOL #### [facility] [address] [place] [address] Dr. Jag Waldrop GI PANEL (PCR)on 11-30-2021 Adenovirus F 40/41 Not detected Normal NOT DETECTED [facility] Comment on above: Performed By: #### E RUR #### [facility] [address] [place] [address] Dr. Jag Waldrop Astrovirus Not detected Normal NOT DETECTED [facility] Comment on above: Performed By: #### E RUR #### [facility] [address] [place] [address] Dr. Jag Waldrop C. Diff toxin A/B Detected Critically abnormal NOT DETECTED [facility] Comment on above: Performed By: #### E RUR #### [facility] [address] [place] [address] Dr. Jag Waldrop Campylobacter Not detected Normal NOT DETECTED [facility] Comment on above: Performed By: #### E RUR #### [facility] [address] [place] [address] Dr. Jag Waldrop Cryptosporidium Not detected Normal NOT DETECTED [facility] Comment on above: Performed By: #### E RUR #### [facility] [address] [place] [address] Dr. Jag Waldrop Cyclos. Cayetanensis Not detected Normal NOT DETECTED [facility] Comment on above: Performed By: #### E RUR #### [facility] [address] [place] [address] Dr. Jag Waldrop E. Coli O157 Not Applicable Normal Not Applicable [facility] Comment on above: Performed By: #### E RUR #### [facility] [address] [place] [address] Dr. Jag Waldrop E. histolytica Not detected Normal NOT DETECTED [facility] Comment on above: Performed By: #### E RUR #### [facility] [address] [place] [address] Dr. Jag Waldrpo EAEC Not detected Normal NOT DETECTED [facility] Comment on above: Performed By: #### E RUR #### [facility] [address] [place] [address] Dr. Jag Waldrop EIEC Not detected Normal NOT DETECTED [facility] Comment on above: Performed By: #### E RUR #### [facility] [address] [place] [address] Dr. Jag Waldrop EPEC Not detected Normal NOT DETECTED [facility] Comment on above: Performed By: #### E RUR #### [facility] [address] [place] [address] Dr. Jag Waldrop ETEC Not detected Normal NOT DETECTED [facility] Comment on above: Performed By: #### E RUR #### [facility] [address] [place] [address] Dr. Jag Waldrop G. Lamblia Not detected Normal NOT DETECTED [facility] Comment on above: Performed By: #### E RUR #### [facility] [address] [place] [address] Dr. Jag Waldrop GIPANEL CONTROLS PASSED Normal [facility] Comment on above: Performed By: #### E RUR #### [facility] [address] [place] [address] Dr. Jag LEONARD NIKHIL HEADER GI PANEL BACTERIA Normal [facility] Comment on above: Performed By: #### E RUR #### [facility] [address] [place] [address] Dr. Jag SANCHEZ ECOLI GI PANEL DIARRHEAGEN IC E.COLI / SHIGELLA Normal [facility] Comment on above: Performed By: #### E RUR #### [facility] [address] [place] [address] Dr. Jag SANCHEZ INFO SEE BELOW [facility] Comment on above: Result Comment: EAEC - Enteroaggregative E. Coli EPEC- Enteropathogenic E. Coli ETEC- Enterotoxigenic E. Coli lt/st STEC- Shigella-like toxin-producing E. Coli stx1/stx2 EIEC- Shigella/Enteroinvasive E. Coli Performed By: #### E RUR #### [facility] [address] [place] [address] Dr. Jag SANCHEZ PARASITES GI PANEL PARASITES Normal [facility] Comment on above: Performed By: #### E RUR #### [facility] [address] [place] [address] Dr. Jag SANCHEZ VIRUS GI PANEL VIRUSES Normal [facility] Comment on above: Performed By: #### E RUR #### [facility] [address] [place] [address] Dr. Jag Waldrop Norovirus GI/GII Not detected Normal NOT DETECTED [facility] Comment on above: Performed By: #### E RUR #### [facility] [address] [place] [address] Dr. Jag Waldrop P. Shigelloides Not detected Normal NOT DETECTED [facility] Comment on above: Performed By: #### E RUR #### [facility] [address] [place] [address] Dr. Jag Waldrop Rotavirus A Not detected Normal NOT DETECTED [facility] Comment on above: Performed By: #### E RUR #### [facility] [address] [place] [address] Dr. Jag Waldrop Salmonella Not detected Normal NOT DETECTED [facility] Comment on above: Performed By: #### E RUR #### [facility] [address] [place] [address] Dr. Jag Waldrop Sapovirus Not detected Normal NOT DETECTED [facility] Comment on above: Performed By: #### E RUR #### [facility] [address] [place] [address] Dr. Jag Waldrop STEC Not detected Normal NOT DETECTED [facility] Comment on above: Performed By: #### E RUR #### [facility] [address] [place] [address] Dr. Jag Waldrop Vibrio Not detected Normal NOT DETECTED [facility] Comment on above: Performed By: #### E RUR #### [facility] [address] [place] [address] Dr. Jag Waldrop Vibrio Cholera Not detected Normal NOT DETECTED [facility] Comment on above: Performed By: #### E RUR #### [facility] [address] [place] [address] Dr. Jag Waldrop Y. Enterocolitica Not detected Normal NOT DETECTED [facility] Comment on above: Performed By: #### E RUR #### [facility] [address] [place] [address] Dr. Jag Waldrop OCC BLD IMMUNO SCREENon 11-14 OCCULT BLOOD Negative Normal NEGATIVE [facility] Comment on above: Performed By: #### L IPID, BMP #### [facility] [address] [place] [address] Dr. Jag Waldrop PROF CHEM 8 (BAS METB)on Anion gap [Moles/Vol] 15.5 mmol/L Normal [facility] Comment on above: Performed By: #### P OCGLUC #### [facility] [address] [place] [address] Dr. Jag Waldrop Calcium [Mass/Vol] 9.1 mg/dL Normal 8.5-10.1 [facility] Comment on above: Performed By: #### P OCGLUC #### [facility] [address] [address] [address] Jag Waldrop Chloride [Moles/Vol] 106 mmol/L Normal 98-107 [facility] Comment on above: Performed By: #### P OCGLUC #### [facility] [address] [address] [address] Jag Waldrop CO2 [Moles/Vol] 25.4 mmol/L Normal 21.0-32.0 [facility] Comment on above: Performed By: #### P OCGLUC #### [facility] [address] [address] [address] Jag Waldrop Creatinine [Mass/Vol] 1.18 mg/dL Critically high 0.55-1.02 [facility] Comment on above: Performed By: #### P OCGLUC #### [facility] [address] [address] [address] Jag Waldrop EGFR-AF GUAMANIAN 59 mL/min/1.73m2 Critically low >=60 [facility] Comment on above: Performed By: #### P OCGLUC #### [facility] [address] [address] [address] Jag Waldrop EGFR-NON AF GUAMANIAN 48 mL/min/1.73m2 Critically low >=60 [facility] Comment on above: Performed By: #### P OCGLUC #### [facility] [address] [address] [address] Jag Waldrop Glucose [Mass/Vol] 141 mg/dL Critically high 74-106 [facility] Comment on above: Performed By: #### P OCGLUC #### [facility] [address] [address] [address] Jag Waldrop Potassium [Moles/Vol] 3.9 mmol/L Normal 3.5-5.1 [facility] Comment on above: Performed By: #### P OCGLUC #### [facility] [address] [address] [address] Jag Waldrop Sodium [Moles/Vol] 143 mmol/L Normal 136-145 [facility] Comment on above: Performed By: #### P OCGLUC #### [facility] [address] [address] [address] Jag Waldrop Urea nitrogen [Mass/Vol] 22.0 mg/dL Critically high 7.0-18.0 [facility] Comment on above: Performed By: #### P OCGLUC #### [facility] [address] [place] [address] Dr. Jag Waldrop Urea nitrogen/Creatinine [Mass ratio] 18.6 mg/mg Normal [facility] Comment on above: Performed By: #### P OCGLUC #### [facility] [address] [place] [address] Dr. Jag Waldrop XR KUB 1 VIEWon [...] ALEX ALLEN Date: 2021-10-29 09:01 Normal [facility] CULTURE URINEon 10-28-2021 CULTURE URINE Culture Observations : LIGHT GROWTH OF MIXED GENITAL SANDEE. NO POTENTIAL PATHOGENS SEEN. Normal [facility] Comment on above: Performed By: #### E RUR #### [facility] [address] [place] [address] Dr. Jag Waldrop GLYCOHEMOGLOBIN A1Con 2021 ADA RECOMMENDATION SEE BELOW Normal [facility] Comment on above: Result Comment: ADA RECOMMENDED LIMIT 4.0 - 6.0 ADA THERAPEUTIC TARGET < 7.0 ACTION SUGGESTED > 7.0 Performed By: #### E RUR #### [facility] [address] [place] [address] Dr. Jag Waldrop Glucose [Mass/Vol] 157 mg/dL Normal [facility] Comment on above: Performed By: #### E RUR #### [facility] [address] [place] [address] Dr. Jag Waldrop HbA1c (Bld) [Mass fraction] 7.1 % Critically high 4.5-6.2 [facility] Comment on above: Performed By: #### E RUR #### [facility] [address] [address] [address] Jag Waldrop LIPID PROFILEon 10-28-2021 CHOL-HDL RATIO NORM SEE BELOW Normal [facility] Comment on above: Result Comment: 3.3 - 4.4 LOW RISK 4.4 - 7.1 AVERAGE RISK 7.1 - 11.0 MODERATE RISK >11.0 HIGH RISK Performed By: #### P OCGLUC #### [facility] [address] [address] [address] Jag Waldrop Cholesterol [Mass/Vol] 150 mg/dL Normal <=200 [facility] Comment on above: Performed By: #### P OCGLUC #### [facility] [address] [address] [address] Jag Waldrop Cholesterol in HDL [Mass/Vol] 39 mg/dL Critically low 40-60 [facility] Comment on above: Performed By: #### P OCGLUC #### [facility] [address] [address] [address] Jag Waldrop Cholesterol in LDL [Mass/Vol] 82.6 mg/dL Normal [facility] Comment on above: Performed By: #### P OCGLUC #### [facility] [address] [address] [address] Jag Waldrop Cholesterol.total/Chol esterol in HDL [Mass ratio] 3.8 {ratio} Normal [facility] Comment on above: Performed By: #### P OCGLUC #### [facility] [address] [address] [address] Jag Waldrop HDL NORMAL > or = 60 mg/dl - LO W CARDIOVASCULAR RISK <40 mg/dl - HIGH CARDIOVASCULAR RISK Normal [facility] Comment on above: Performed By: #### P OCGLUC #### [facility] [address] [address] [address] Jag Waldrop LDL CALC NORMAL SEE BELOW Normal [facility] Comment on above: Result Comment: <100 mg/dl OPTIMAL 100 - 129 mg/dl NEAR OR ABOVE OPTIMAL 130 - 159 mg/dl BORDERLINE HIGH 160 - 189 mg/dl HIGH >190 mg/dl VERY HIGH Performed By: #### P OCGLUC #### [facility] [address] [place] [address] Dr. Jag Waldrop Triglyceride [Mass/Vol] 142 mg/dL Normal <=150 [facility] Comment on above: Performed By: #### P OCGLUC #### [facility] [address] [address] [address] Jag Waldrop VLDL CALC 28.4 mg/dL Normal [facility] Comment on above: Performed By: #### P OCGLUC #### [facility] [address] [place] [address] Dr. Jag Waldrop PROF CHEM 8 (BAS METB)on Anion gap [Moles/Vol] 16.0 mmol/L Normal [place] Comment on above: Performed By: #### P OCGLUC #### [facility] [address] [place] [address] Dr. Jag Waldrop Calcium [Mass/Vol] 8.7 mg/dL Normal 8.5-10.1 [facility] Comment on above: Performed By: #### P OCGLUC #### [facility] [address] [place] [address] Dr. Jag Waldrop Chloride [Moles/Vol] 108 mmol/L Critically high 98-107 [facility] Comment on above: Performed By: #### P OCGLUC #### [facility] [address] [place] [address] Dr. Jag Waldrop CO2 [Moles/Vol] 22.1 mmol/L Normal 21.0-32.0 [facility] Comment on above: Performed By: #### P OCGLUC #### [facility] [address] [place] [address] Dr. Jag Waldrop Creatinine [Mass/Vol] 1.72 mg/dL Critically high 0.55-1.02 [facility] Comment on above: Performed By: #### P OCGLUC #### [facility] [address] [place] [address] Dr. Jag Waldrop EGFR-AF GUAMANIAN 38 mL/min/1.73m2 Critically low >=60 [facility] Comment on above: Performed By: #### P OCGLUC #### [facility] [address] [address] [address] Jag Waldrop EGFR-NON AF GUAMANIAN 31 mL/min/1.73m2 Critically low >=60 [facility] Comment on above: Performed By: #### P OCGLUC #### [facility] [address] [address] [address] Jag Waldrop Glucose [Mass/Vol] 144 mg/dL Critically high 74-106 [facility] Comment on above: Performed By: #### P OCGLUC #### [facility] [address] [address] [address] Jag Waldrop Potassium [Moles/Vol] 5.1 mmol/L Normal 3.5-5.1 [facility] Comment on above: Performed By: #### P OCGLUC #### [facility] [address] [address] [address] Jag Waldrop Sodium [Moles/Vol] 141 mmol/L Normal 136-145 [facility] Comment on above: Performed By: #### P OCGLUC #### [facility] [address] [address] [address] Jag Waldrop Urea nitrogen [Mass/Vol] 41.0 mg/dL Critically high 7.0-18.0 [facility] Comment on above: Performed By: #### P OCGLUC #### [facility] [address] [address] [address] Jag Waldrop Urea nitrogen/Creatinine [Mass ratio] 23.8 mg/mg Normal [facility] Comment on above: Performed By: #### P OCGLUC #### [facility] [address] [address] [address] Jag Waldrop UA (CLEAN/CATCH) FAMILY LAW MEDIATOR/MICRO I F IND.on 10-28-2021 Bilirubin Ql (U) Negative Normal NEGATIVE [facility] Comment on above: Performed By: #### L IPID, BMP #### [facility] [address] [place] [address] Dr. Jag Waldrop Clarity (U) SL CLOUDY Abnormal CLEAR [facility] Comment on above: Performed By: #### L IPID, BMP #### [facility] [address] [place] [address] Dr. Jag Waldrop Color (U) LT. YELLOW Normal YELLOW [facility] Comment on above: Performed By: #### L IPID, BMP #### [facility] [address] [place] [address] Dr. Jag Waldrop Glucose Ql (U) Negative Normal NEGATIVE [facility] Comment on above: Performed By: #### L IPID, BMP #### [facility] [address] [place] [address] Dr. Jag Waldrop Hemoglobin Ql (U) TRACE-INTACT Abnormal NEGATIVE [facility] Comment on above: Performed By: #### L IPID, BMP #### [facility] [address] [place] [address] Dr. Jag Waldrop Ketones Ql (U) Negative Normal NEGATIVE [facility] Comment on above: Performed By: #### L IPID, BMP #### [facility] [address] [place] [address] Dr. Jag Waldrop LEUKOCYTES SMALL Abnormal NEGATIVE [facility] Comment on above: Performed By: #### L IPID, BMP #### [facility] [address] [place] [address] Dr. Jag Waldrop Nitrite Ql (U) Negative Normal NEGATIVE [facility] Comment on above: Performed By: #### L IPID, BMP #### [facility] [address] [place] [address] Dr. Jag Waldrop pH (U) 5.5 [pH] Normal 5-9 [facility] Comment on above: Performed By: #### L IPID, BMP #### [facility] [address] [place] [address] Dr. Jag Waldrop SPEC GRAVITY 1.020 Normal 1.005-<=1.0 25 [facility] Comment on above: Performed By: #### L IPID, BMP #### [facility] [address] [place] [address] Dr. Jag Waldrop UA PROTEIN Negative Normal NEGATIVE/ TRACE [facility] Comment on above: Performed By: #### L IPID, BMP #### [facility] [address] [place] [address] Dr. Jag Waldrop UR MICRO IND INDICATED Normal [facility] Comment on above: Performed By: #### L IPID, BMP #### [facility] [address] [place] [address] Dr. Jag Waldrop Urobilinogen Qn (U) 0.2 {Chris'U}/dL Normal 0.2 - 1. 0 [facility] Comment on above: Performed By: #### L IPID, BMP #### [facility] [address] [place] [address] Dr. Jag Waldrop URINE MICROSCOPIC ONLYon BACTERIA TRACE Abnormal NONE SEEN [facility] Comment on above: Performed By: #### L IPID, BMP #### [facility] [address] [place] [address] Dr. Jag Waldrop Bacteria identified Cx Nom (U) INDICATED Normal [facility] Comment on above: Performed By: #### L IPID, BMP #### [facility] [address] [place] [address] Dr. Jag Waldrop CAST NONE SEEN Normal NONE SEEN [facility] Comment on above: Performed By: #### L IPID, BMP #### [facility] [address] [place] [address] Dr. Jag Waldrop Crystals LM Nom (Urine sed) NONE SEEN Normal NONE SEEN [facility] Comment on above: Performed By: #### L IPID, BMP #### [facility] [address] [place] [address] Dr. Jag Waldrop Epithelial cells LM Ql (Urine sed) RARE Normal NONE SEEN /RARE [facility] Comment on above: Performed By: #### L IPID, BMP #### [facility] [address] [place] [address] Dr. Jag Waldrop MUCOUS TRACE Abnormal NONE SEEN [facility] Comment on above: Performed By: #### L IPID, BMP #### [facility] [address] [place] [address] Dr. Jag Waldrop RBC 0-2 Normal 0-2 [facility] Comment on above: Performed By: #### L IPID, BMP #### [facility] [address] [place] [address] Dr. Jag Waldrop WBC 2-5 Abnormal NONE SEEN [facility] Comment on above: Performed By: #### L IPID, BMP #### [facility] [address] [place] [address] Dr. Jag Waldrop BNPon 10-02-2021 Natriuretic peptide B (Bld) [Mass/Vol] 52.0 pg/mL Normal <=900.0 [facility] Comment on above: Performed By: #### L IPID, BMP #### [facility] [address] [place] [address] Dr. Jag Waldrop CBC AUTO DIFFon 10-02-2021 BASO # 0.1 103/ul Normal 0.0-0.1 [facility] Comment on above: Performed By: #### P OCGLUC #### [facility] [address] [place] [address] Dr. Jag Waldrop Basophils/100 WBC (Bld) 0.8 % Normal 0.2-2.0 [facility] Comment on above: Performed By: #### P OCGLUC #### [facility] [address] [place] [address] Dr. Jag Waldrop EO # 0.2 103/ul Normal 0.0-0.7 [facility] Comment on above: Performed By: #### P OCGLUC #### [facility] [address] [place] [address] Dr. Jag Waldrop Eosinophils/100 WBC (Bld) 3.0 % Normal 0.9-7.0 [facility] Comment on above: Performed By: #### P OCGLUC #### [facility] [address] [place] [address] Dr. Jag Waldrop Erythrocyte distribution width (RBC) [Ratio] 14.2 % Normal 11.0-15.0 [facility] Comment on above: Performed By: #### P OCGLUC #### [facility] [address] [place] [address] Dr. Jag Waldrop Hematocrit (Bld) [Volume fraction] 35.9 % Critically low 36.0-48.0 [facility] Comment on above: Performed By: #### P OCGLUC #### [facility] [address] [place] [address] Dr. Jag Waldrop Hemoglobin (Bld) [Mass/Vol] 11.0 g/dL Critically low 12.0-16.0 [facility] Comment on above: Performed By: #### P OCGLUC #### [facility] [address] [place] [address] Dr. Jag Waldrop IG # 0.03 10e3/ul Normal 0.00-0.03 [facility] Comment on above: Performed By: #### P OCGLUC #### [facility] [address] [place] [address] Dr. Jag Waldrop IG % 0.4 % Normal 0.0-0.5 [facility] Comment on above: Performed By: #### P OCGLUC #### [facility] [address] [place] [address] Dr. Jag Waldrop LYMPH # 2.8 103/ul Normal 1.2-3.8 [facility] Comment on above: Performed By: #### P OCGLUC #### [facility] [address] [place] [address] Dr. Jag Waldrop Lymphocytes/100 WBC (Bld) 37.9 % Normal 20.5-60.0 [facility] Comment on above: Performed By: #### P OCGLUC #### [facility] [address] [place] [address] Dr. Jag Waldrop MANUAL DIFF REQ NO Normal [facility] Comment on above: Performed By: #### P OCGLUC #### [facility] [address] [place] [address] Dr. Jag Waldrop MCH (RBC) [Entitic mass] 28.7 pg Normal 26.7-34.0 [facility] Comment on above: Performed By: #### P OCGLUC #### [facility] [address] [address] [address] Jag Waldrop MCHC (RBC) [Mass/Vol] 30.6 g/dL Normal 29.9-35.2 [facility] Comment on above: Performed By: #### P OCGLUC #### [facility] [address] [address] [address] Jag Waldrop MCV (RBC) [Entitic vol] 93.7 fL Normal 81.0-99.0 [facility] Comment on above: Performed By: #### P OCGLUC #### [facility] [address] [address] [address] Jag Waldrop MONO # 0.5 103/ul Normal 0.3-0.8 [facility] Comment on above: Performed By: #### P OCGLUC #### [facility] [address] [place] [address] Dr. Jag Waldrop Monocytes/100 WBC (Bld) 7.4 % Normal 1.7-12.0 [facility] Comment on above: Performed By: #### P OCGLUC #### [facility] [address] [place] [address] Dr. Jag Waldrop NEUT # 3.7 103/ul Normal 1.4-6.5 [facility] Comment on above: Performed By: #### P OCGLUC #### [facility] [address] [place] [address] Dr. Jag Waldrop Neutrophils/100 WBC (Bld) 50.5 % Normal 43.0-75.0 [facility] Comment on above: Performed By: #### P OCGLUC #### [facility] [address] [address] [address] Jag Waldrop Platelet mean volume (Bld) [Entitic vol] 10.2 fL Normal 9.5-13.5 [facility] Comment on above: Performed By: #### P OCGLUC #### [facility] [facility] [address] [address] [address] Jag Waldrop PLT 261 103/ul Normal 150-450 [facility] Comment on above: Performed By: #### P OCGLUC #### [facility] [address] [address] [address] Jag Waldrop RBC 3.83 106/ul Critically low 4.20-5.40 [facility] Comment on above: Performed By: #### P OCGLUC #### [facility] [address] [address] [address] Jag Waldrop WBC 7.3 103/ul Normal 4.0-11.0 [facility] Comment on above: Performed By: #### P OCGLUC #### [facility] [address] [address] [address] Jag Waldrop POINT OF CARE GLUCOSEon 09-14 Glucose [Mass/Vol] 156 mg/dL Critically high 74-106 [facility] Comment on above: Performed By: #### P OCGLUC #### [facility] [address] [address] [address] Jag Waldrop Glucose [Mass/Vol] 304 mg/dL Critically high 74-106 [facility] Comment on above: Performed By: #### P OCGLUC #### [facility] [address] [address] [address] Jag Waldrop Glucose [Mass/Vol] 77 mg/dL Normal 74-106 [facility] Comment on above: Performed By: #### E RUR #### [facility] [address] [address] [address] Jag Waldrop Glucose [Mass/Vol] 136 mg/dL Critically high 74-106 [facility] Comment on above: Performed By: #### E RUR #### [facility] [address] [address] [address] Jag Waldrop Glucose [Mass/Vol] 73 mg/dL Critically low 74-106 [place] Comment on above: Performed By: #### E RUR #### [facility] [address] [address] [address] Jag Waldrop PROF CHEM 8 (BAS METB)on Anion gap [Moles/Vol] 15.5 mmol/L Normal [place] Comment on above: Performed By: #### P OCGLUC #### [facility] [address] [address] [address] Jag Waldrop Calcium [Mass/Vol] 8.3 mg/dL Critically low 8.5-10.1 [place] Comment on above: Performed By: #### P OCGLUC #### [facility] [address] [address] [address] Jag Waldrop Chloride [Moles/Vol] 108 mmol/L Critically high 98-107 [facility] Comment on above: Performed By: #### P OCGLUC #### [facility] [address] [address] [address] Jag Waldrop CO2 [Moles/Vol] 18.9 mmol/L Critically low 21.0-32.0 [facility] Comment on above: Performed By: #### P OCGLUC #### [facility] [address] [address] [address] Jag Waldrop Creatinine [Mass/Vol] 1.43 mg/dL Critically high 0.55-1.02 [facility] Comment on above: Performed By: #### P OCGLUC #### [facility] [address] [address] [address] Jag Waldrop EGFR-AF GUAMANIAN 47 mL/min/1.73m2 Critically low >=60 [facility] Comment on above: Performed By: #### P OCGLUC #### [facility] [address] [address] [address] Jag Waldrop EGFR-NON AF GUAMANIAN 39 mL/min/1.73m2 Critically low >=60 [facility] Comment on above: Performed By: #### P OCGLUC #### [facility] [address] [address] [address] Jag Waldrop Glucose [Mass/Vol] 269 mg/dL Critically high 74-106 [facility] Comment on above: Performed By: #### P OCGLUC #### [facility] [address] [address] [address] Jag Waldrop Potassium [Moles/Vol] 5.4 mmol/L Critically high 3.5-5.1 [facility] Comment on above: Performed By: #### P OCGLUC #### [facility] [address] [address] [address] Jag Waldrop Sodium [Moles/Vol] 137 mmol/L Normal 136-145 [facility] Comment on above: Performed By: #### P OCGLUC #### [facility] [address] [address] [address] Jag Waldrop Urea nitrogen [Mass/Vol] 40.0 mg/dL Critically high 7.0-18.0 [facility] Comment on above: Performed By: #### P OCGLUC #### [facility] [address] [address] [address] Jag Waldrop Urea nitrogen/Creatinine [Mass ratio] 28.0 mg/mg Normal [facility] Comment on above: Performed By: #### P OCGLUC #### [facility] [address] [address] [address] Jag Waldrop Anion gap [Moles/Vol] 14.0 mmol/L Normal [place] Comment on above: Performed By: #### E RUR #### [facility] [address] [address] [address] Jag Waldrop Calcium [Mass/Vol] 8.9 mg/dL Normal 8.5-10.1 [facility] Comment on above: Performed By: #### E RUR #### [facility] [address] [address] [address] Jag Waldrop Chloride [Moles/Vol] 110 mmol/L Critically high 98-107 [facility] Comment on above: Performed By: #### E RUR #### [facility] [address] [address] [address] Jag Waldrop CO2 [Moles/Vol] 21.1 mmol/L Normal 21.0-32.0 [facility] Comment on above: Performed By: #### E RUR #### [facility] [address] [address] [address] Jag Waldrop Creatinine [Mass/Vol] 1.32 mg/dL Critically high 0.55-1.02 [facility] Comment on above: Performed By: #### E RUR #### [facility] [address] [address] [address] Jag Waldorp EGFR-AF GUAMANIAN 52 mL/min/1.73m2 Critically low >=60 [facility] Comment on above: Performed By: #### E RUR #### [facility] [address] [address] [address] Jag Waldrop EGFR-NON AF GUAMANIAN 43 mL/min/1.73m2 Critically low >=60 [facility] Comment on above: Performed By: #### E RUR #### [facility] [address] [place] [address] Dr. Jag Waldrop Glucose [Mass/Vol] 79 mg/dL Normal 74-106 [facility] Comment on above: Performed By: #### E RUR #### [facility] [address] [place] [address] Dr. Jag Waldrop Potassium [Moles/Vol] 6.1 mmol/L Critically high 3.5-5.1 [facility] Comment on above: Result Comment: Test Repeated. Critical Value Verified Performed By: #### E RUR #### [facility] [address] [place] [address] Dr. Jag Waldrop Sodium [Moles/Vol] 140 mmol/L Normal 136-145 [facility] Comment on above: Performed By: #### E RUR #### [facility] [address] [place] [address] Dr. Jag Waldrop Urea nitrogen [Mass/Vol] 45.0 mg/dL Critically high 7.0-18.0 [facility] Comment on above: Performed By: #### E RUR #### [facility] [address] [place] [address] Dr. Jag Waldrop Urea nitrogen/Creatinine [Mass ratio] 34.1 mg/mg Normal [facility] Comment on above: Performed By: #### E RUR #### [facility] [address] [place] [address] Dr. Jag Waldrop BASIC METABOLIC PANELon 08-14 Calcium [Mass/Vol] 8.9 mg/dL Normal 8.6-10.3 [facility] Comment on above: Order Comment: No: D o not add to previous draw Performed By: #### 5 [id number], [id number] #### [facility] [address] [place] [address], [place] Chloride [Moles/Vol] 105 mmol/L Normal 98-107 [facility] Comment on above: Order Comment: No: D o not add to previous draw Performed By: #### 5 610, 30256 #### [facility] [address] [place] [address], [place] CO2 [Moles/Vol] 26 mmol/L Normal 21-31 [facility] Comment on above: Order Comment: No: D o not add to previous draw Performed By: #### 5 610, 18208 #### [facility] [address] [place] [address], [place] Creatinine [Mass/Vol] 0.99 mg/dL Normal 0.60-1.20 [facility] Comment on above: Order Comment: No: D o not add to previous draw Performed By: #### 5 6101, 30516 #### [facility] [address] [place] [address], [place] GFR/1.73 sq M predicted among blacks MDRD (S/P/Bld) [Vol rate/Area] mL/min/{1.73_m2} Normal >60 [facility] Comment on above: Order Comment: No: D o not add to previous draw Performed By: #### 5 6101, 85220 #### [facility] [address] [place] [address], [place] GFR/1.73 sq M predicted among non-blacks MDRD (S/P/Bld) [Vol rate/Area] mL/min/{1.73_m2} Normal >60 [facility] Comment on above: Order Comment: No: D o not add to previous draw Performed By: #### 5 610, 65922 #### [facility] [address] [place] [id number], [facility] Glucose [Mass/Vol] 145 mg/dL High 70-100 [facility] Comment on above: Order Comment: No: D o not add to previous draw Performed By: #### 5 610, 47671 #### [facility] [address] [place] [id number], [facility] Potassium [Moles/Vol] 3.7 mmol/L Normal 3.5-5.1 [facility] Comment on above: Order Comment: No: D o not add to previous draw Performed By: #### 5 610, 55004 #### [facility] [address] [place] [id number], [facility] Sodium [Moles/Vol] 139 mmol/L Normal 136-145 [facility] Comment on above: Order Comment: No: D o not add to previous draw Performed By: #### 5 610, 27865 #### [facility] [address] [place] [address], [facility] Urea nitrogen [Mass/Vol] 26 mg/dL High 7-25 [facility] Comment on above: Order Comment: No: D o not add to previous draw Performed By: #### 5 610, 76746 #### [facility] [address] [place] [address], [facility] CBC W/DIFFon 08-25-2018 ABS BASOPHILS 0.0 10*3/uL Normal 0.0-0.2 [facility] Comment on above: Order Comment: No: D o not add to previous draw Performed By: #### 5 610, 23403 #### [facility] [address] [place] [address], [facility] ABS IMM GRANS 0.0 10*3/uL Normal 0.0-0.2 [facility] Comment on above: Order Comment: No: D o not add to previous draw Performed By: #### 5 610, 77180 #### [facility] [address] [place] [address], [facility] ABS NEUTROPHILS 2.3 10*3/uL Normal 1.6-7.6 [facility] Comment on above: Order Comment: No: D o not add to previous draw Performed By: #### 5 6100, 33378 #### [facility] [address] [place] [address], [place] Basophils/100 WBC (Bld) 0.3 % Normal 0.0-1.0 [facility] Comment on above: Order Comment: No: D o not add to previous draw Performed By: #### 5 6100, 48479 #### [facility] [address] [place] [address], [place] Eosinophils (Bld) [#/Vol] 0.0 10*3/uL Normal 0.0-0.5 [facility] Comment on above: Order Comment: No: D o not add to previous draw Performed By: #### 5 6100, 11657 #### [facility] [address] [place] [address], [facility] Eosinophils/100 WBC (Bld) 0.0 % Normal 0.0-6.0 [facility] Comment on above: Order Comment: No: D o not add to previous draw Performed By: #### 5 6100, 20012 #### [facility] [address] [place] [address], [facility] Erythrocyte distribution width (RBC) [Ratio] 13.3 % Normal 11.5-15.0 [facility] Comment on above: Order Comment: No: D o not add to previous draw Performed By: #### 5 610, 39766 #### [facility] [address] [place] [address], [place] Hematocrit (Bld) [Volume fraction] 37.7 % Normal 36.0-45.0 [facility] Comment on above: Order Comment: No: D o not add to previous draw Performed By: #### 5 6100, 37666 #### [facility] [address] [place] [address], [facility] Hemoglobin (Bld) [Mass/Vol] 12.1 g/dL Normal 12.0-15.0 [facility] Comment on above: Order Comment: No: D o not add to previous draw Performed By: #### 5 6100, 92599 #### [facility] [address] [place] [address], [facility] IMMATURE GRANS 0.2 % Normal 0.0-1.0 [facility] Comment on above: Order Comment: No: D o not add to previous draw Performed By: #### 5 6100, 56746 #### [facility] [address] [place] [address], [facility] Lymphocytes (Bld) [#/Vol] 3.0 10*3/uL Normal 1.2-4.0 [facility] Comment on above: Order Comment: No: D o not add to previous draw Performed By: #### 5 6100, 06049 #### [facility] [address] [place] [address], [facility] Lymphocytes/100 WBC (Bld) 52.0 % High 20.0-45.0 [facility] Comment on above: Order Comment: No: D o not add to previous draw Performed By: #### 5 6100, 48681 #### [facility] [address] [place] [address], [facility] MCH (RBC) [Entitic mass] 28.7 pg Normal 27.0-33.0 [facility] Comment on above: Order Comment: No: D o not add to previous draw Performed By: #### 5 6100, 89551 #### [facility] [address] [place] [address], [facility] MCHC (RBC) [Mass/Vol] 32.1 g/dL Normal 32.0-35.0 [facility] Comment on above: Order Comment: No: D o not add to previous draw Performed By: #### 5 610, 45580 #### [facility] [address] [place] [address], [facility] MCV (RBC) [Entitic vol] 89.3 fL Normal 82.0-98.0 [facility] Comment on above: Order Comment: No: D o not add to previous draw Performed By: #### 5 610, 71385 #### [facility] [address] [place] [id number], [facility] Monocytes (Bld) [#/Vol] 0.5 10*3/uL Normal 0.1-1.0 [facility] Comment on above: Order Comment: No: D o not add to previous draw Performed By: #### 5 610, 31403 #### [facility] [address] [place] [address], [facility] MONOS 7.9 % Normal 5.0-12.0 [facility] Comment on above: Order Comment: No: D o not add to previous draw Performed By: #### 5 610, 95365 #### [facility] [address] [place] [address], [facility] Neutrophils/100 WBC (Bld) 39.6 % Low 40.0-72.0 [facility] Comment on above: Order Comment: No: D o not add to previous draw Performed By: #### 5 610, 49063 #### [facility] [address] [place] [address], [facility] Nucleated RBC/100 WBC (Bld) [Ratio] 0 % Normal 0-0 [facility] Comment on above: Order Comment: No: D o not add to previous draw Performed By: #### 5 610, 60061 #### [facility] [address] [place] [address], [place] PLAT CNT 236 10*3/uL Normal 150-400 [facility] Comment on above: Order Comment: No: D o not add to previous draw Performed By: #### 5 6101, 36462 #### [facility] [address] [place] [address], [facility] RBC (Bld) [#/Vol] 4.22 10*6/uL Normal 3.80-5.00 [facility] Comment on above: Order Comment: No: D o not add to previous draw Performed By: #### 5 6101, 81858 #### [facility] [address] [place] [address], [facility] WBC (Bld) [#/Vol] 5.85 10*3/uL Normal 4.00-10.60 [facility] Comment on above: Order Comment: No: D o not add to previous draw Performed By: #### 5 6101, 27218 #### [facility] [address] POC GLUCOSE LABon 08-25-2018 Glucose [Mass/Vol] 180 mg/dL High 70-100 [facility] Comment on above: Performed By: #### 5 6101, 61199 #### [facility] [address] [place] [address], [facility] Glucose [Mass/Vol] 129 mg/dL High 70-100 [facility] Comment on above: Performed By: #### 5 6101, 92694 #### [facility] [address] [place] [address], [facility] Glucose [Mass/Vol] 132 mg/dL High 70-100 [facility] Comment on above: Performed By: #### 5 0608 #### [facility] [address] UFH HEPARIN ASSAYon 08-26-19 19 UNFRACTIONATED HEPARIN <0.10 Critically low 0.30-0.70 [facility] Comment on above: Result Comment: Betty roxaban and Apixaban will interfere with the anti Xa assay used to monitor UFH and LMWH. RESULTS CHECKED AND CALLED. ACCURATELY READ BACK BY JANENE ZAMARRIPA RN AT 0554 Performed By: #### 5 6101, 85169 #### [facility] [address] [place] [address], [facility] BASIC METABOLIC PANELon 08-14 Calcium [Mass/Vol] 8.5 mg/dL Low 8.6-10.3 [facility] Comment on above: Order Comment: No: D o not add to previous draw Performed By: #### 5 0608 #### [facility] [address] [place] [address], [place] Chloride [Moles/Vol] 104 mmol/L Normal 98-107 [facility] Comment on above: Order Comment: No: D o not add to previous draw Performed By: #### 5 0608 #### [facility] [address] [place] [address], [place] CO2 [Moles/Vol] 27 mmol/L Normal 21-31 [facility] Comment on above: Order Comment: No: D o not add to previous draw Performed By: #### 5 0608 #### [facility] [address] [place] [address], [place] Creatinine [Mass/Vol] 1.13 mg/dL Normal 0.60-1.20 [facility] Comment on above: Order Comment: No: D o not add to previous draw Performed By: #### 5 0608 #### [facility] [address] [place] [address], [place] GFR/1.73 sq M predicted among blacks MDRD (S/P/Bld) [Vol rate/Area] mL/min/{1.73_m2} Normal >60 [facility] Comment on above: Order Comment: No: D o not add to previous draw Performed By: #### 5 0608 #### [facility] [address] [place] [address], [place] GFR/1.73 sq M predicted among non-blacks MDRD (S/P/Bld) [Vol rate/Area] 52 ml/min/1.73sq m Abnormal >60 [facility] Comment on above: Order Comment: No: D o not add to previous draw Performed By: #### 5 0608 #### [facility] [address] [place] [address], [place] Glucose [Mass/Vol] 131 mg/dL High 70-100 [facility] Comment on above: Order Comment: No: D o not add to previous draw Performed By: #### 5 0608 #### [facility] [address] [place] [address], [place] Potassium [Moles/Vol] 3.9 mmol/L Normal 3.5-5.1 [facility] Comment on above: Order Comment: No: D o not add to previous draw Performed By: #### 5 0608 #### [facility] [address] [place] [address], [place] Sodium [Moles/Vol] 141 mmol/L Normal 136-145 [facility] Comment on above: Order Comment: No: D o not add to previous draw Performed By: #### 5 0608 #### [facility] [address] [place] [address], [place] Urea nitrogen [Mass/Vol] 28 mg/dL High 7-25 [facility] Comment on above: Order Comment: No: D o not add to previous draw Performed By: #### 5 0608 #### [facility] [address] [place] [address], [place] CBC COMPLETE BLOOD COUNTon 0 - Erythrocyte distribution width (RBC) [Ratio] 13.5 % Normal 11.5-15.0 [facility] Comment on above: Order Comment: No: D o not add to previous draw Performed By: #### 5 0608 #### [facility] [address] [place] [address], [place] Hematocrit (Bld) [Volume fraction] 37.1 % Normal 36.0-45.0 [facility] Comment on above: Order Comment: No: D o not add to previous draw Performed By: #### 5 0608 #### [facility] [address] [place] [address], [facility] Hemoglobin (Bld) [Mass/Vol] 12.2 g/dL Normal 12.0-15.0 [facility] Comment on above: Order Comment: No: D o not add to previous draw Performed By: #### 5 0608 #### [facility] [address] [place] [address], [facility] MCH (RBC) [Entitic mass] 28.8 pg Normal 27.0-33.0 [facility] Comment on above: Order Comment: No: D o not add to previous draw Performed By: #### 5 0608 #### [facility] [address] [facility] MCHC (RBC) [Mass/Vol] 32.9 g/dL Normal 32.0-35.0 [facility] Comment on above: Order Comment: No: D o not add to previous draw Performed By: #### 5 0608 #### [facility] [address] [place] [address], [facility] MCV (RBC) [Entitic vol] 87.7 fL Normal 82.0-98.0 [facility] Comment on above: Order Comment: No: D o not add to previous draw Performed By: #### 5 0608 #### [facility] [address] [place] [address], [facility] Nucleated RBC/100 WBC (Bld) [Ratio] 0 % Normal 0-0 [facility] Comment on above: Order Comment: No: D o not add to previous draw Performed By: #### 5 0608 #### [facility] [address] [place] [address], [facility] PLAT CNT 251 10*3/uL Normal 150-400 [facility] Comment on above: Order Comment: No: D o not add to previous draw Performed By: #### 5 0608 #### [facility] [address] [place] [address], [facility] RBC (Bld) [#/Vol] 4.23 10*6/uL Normal 3.80-5.00 [facility] Comment on above: Order Comment: No: D o not add to previous draw Performed By: #### 5 0608 #### [facility] [address] [place] [address], [facility] WBC (Bld) [#/Vol] 8.42 10*3/uL Normal 4.00-10.60 [facility] Comment on above: Order Comment: No: D o not add to previous draw Performed By: #### 5 0608 #### [facility] [address] Cardiovascular Lab Reporton 08-24-2018 Cardiovascular Lab Report [facility] Patient Name: Sahra [facility] A MR #: [id number] Department of Physician: Marshall Torres M.D. Division of Service Date: 08/23/2018 Cardiology Birthdate: 1970 Adult Cardiovascular Room #: 3AB [id number] [facility] [address] [address] Cardiovascular Laboratory Report FINAL IMPRESSION: 1. Mild [...] 5. Follow up with me in the [facility] post discharge. 6. Further recommendations deferred [...] the left radial artery was obtained. A 6-[place] Glidesheath was inserted without difficulty. 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 There are luminal irregularities throughout the remainder [...] Yovani Godoy M.D. Date Trans: 08/24/2018 06:37 A/yadira [id number] cc: Geovanni Brunner D.O. [address] [facility] [id number] Leonore [facility] HIP RIGHT 1 OR 2 VWS WITH PE LVISon 08-24-2018 HIP RIGHT 1 OR 2 VWS WITH PELVIS [facility] Department of Radiology [address] [place] [id number] Patient Name: SHERLY HUMPHREYS : 1970 Sex: F Age: Race: [place] Location: [address] [place] [address] Patient Status: D Ordered Date: 08/24/2018 12:30:00 [...] findings. Electronically signed by:Kristy Jones. Transcribed by: [email or web address], User Resident: DL GOLDBERG Electronically Signed by: KRISTY JONES @ 08/25/2018 08:05 PM I personally read this/these film(s) with this resident Normal The [facility] Comment on above: Order Comment: No: D o not add to previous draw POC GLUCOSE LABon 08-24-2018 Glucose [Mass/Vol] 125 mg/dL High 70-100 The [facility] Comment on above: Performed By: #### [id number] #### [facility] [address] [place] [address], [facility] Glucose [Mass/Vol] 150 mg/dL High 70-100 The [facility] Comment on above: Performed By: #### 5 [id number] #### [facility] [address] [place] [address], [facility] Glucose [Mass/Vol] 119 mg/dL High 70-100 The [facility] Comment on above: Performed By: #### 5 [id number] #### [facility] [address] [place] [address], [facility] UFH HEPARIN ASSAYon 08-25-19 19 UNFRACTIONATED HEPARIN <0.10 Critically low 0.30-0.70 The [facility] Comment on above: Result Comment: Zephyr roxaban and Apixaban will interfere with the anti Xa assay used to monitor UFH and LMWH. RESULTS CHECKED AND CALLED. ACCURATELY READ BACK BY JANENE ZAMARRIPA RN AT 0732 Performed By: #### 5 [id number] #### [facility] [address] [place] [address], [facility] APTTon 08-23-2018 aPTT Coag (Bld) [Time] 38.8 s High 25.0-35.0 Th e [facility] Comment on above: Order Comment: No: [...] THIS PURPOSE. Performed By: #### 5 [id number], [id number] #### [facility] [address] CBC COMPLETE BLOOD COUNTon 0 08-23-2018 Erythrocyte distribution width (RBC) [Ratio] 13.3 % Normal 11.5-15.0 [facility] Comment on above: Order Comment: No: D o not add to previous draw Performed By: #### 5 [id number] #### [facility] [address] [place] [address], [facility] Hematocrit (Bld) [Volume fraction] 41.4 % Normal 36.0-45.0 The [facility] Comment on above: Order Comment: No: D o not add to previous draw Performed By: #### 5 [id number] #### [facility] [address] [place] [address], [facility] Hemoglobin (Bld) [Mass/Vol] 13.8 g/dL Normal 12.0-15.0 The [facility] Comment on above: Order Comment: No: D o not add to previous draw Performed By: #### 5 [id number] #### [facility] [address] [place] [address], [facility] MCH (RBC) [Entitic mass] 29.0 pg Normal 27.0-33.0 The [facility] Comment on above: Order Comment: No: D o not add to previous draw Performed By: #### 5 [id number] #### [facility] [address] MCHC (RBC) [Mass/Vol] 33.3 g/dL Normal 32.0-35.0 The [facility] Comment on above: Order Comment: No: D o not add to previous draw Performed By: #### 5 [id number] #### [facility] [address] [place] [address], [facility] MCV (RBC) [Entitic vol] 87.0 fL Normal 82.0-98.0 The [facility] Comment on above: Order Comment: No: D o not add to previous draw Performed By: #### 5 [id number] #### [facility] [address] Nucleated RBC/100 WBC (Bld) [Ratio] 0 % Normal 0-0 The [facility] Comment on above: Order Comment: No: D o not add to previous draw Performed By: #### 5 [id number] #### [facility] [address] [place] [address], [facility] PLAT CNT 293 10*3/uL Normal 150-400 The [facility] Comment on above: Order Comment: No: D o not add to previous draw Performed By: #### 5 [id number] #### [facility] [address] [place] [address], [facility] RBC (Bld) [#/Vol] 4.76 10*6/uL Normal 3.80-5.00 The [facility] Comment on above: Order Comment: No: D o not add to previous draw Performed By: #### 5 [id number] #### [facility] [address] [place] [address], [facility] WBC (Bld) [#/Vol] 10.48 10*3/uL Normal 4.00-10.60 The [facility] Comment on above: Order Comment: No: D o not add to previous draw Performed By: #### 5 [id number] #### [facility] [address] [place] [address], [facility] History and Physicalon 05-10 -2019 History and Physical MR#: [id number] [facility] Pt. Name: Sherly Humphreys Admitted: 08/23/2018 Date of : 1970 Attending Physician: Nini Valente MD Room #: 3AB [id number] Discharge Date: HISTORY AND PHYSICAL CHIEF COMPLAINT: [...] she went to the emergency department in [facility]. Initial evaluation included troponin and EKG, which were negative. The patient was started on nitroglycerin patch. She experienced some relief after starting the nitroglycerin patch. Her pain went down from 8 to 6/10. Given her significant cardiac history, the patient was transferred to [facility] for further evaluation. The patient [...] with no ST-T wave changes. Troponin from [facility] was 0.01. Pending troponin in our [...] Amanda/Nini Valente MD Date Trans: 08/23/2018 06:27 A/mmo [id number] Normal The [facility] POC GLUCOSE LABon 08-23-2018 Glucose [Mass/Vol] 101 mg/dL High 70-100 The [facility] Comment on above: Performed By: #### 5 [id number] #### [facility] [address] [place] [address], [facility] Glucose [Mass/Vol] 96 mg/dL Normal 70-100 The [facility] Comment on above: Performed By: #### 5 [id number] #### [facility] [address] [place] [address], [facility] Glucose [Mass/Vol] 134 mg/dL High 70-100 The [facility] Comment on above: Performed By: #### 8 [id number] #### [facility] [address] [place] [address], [facility] Glucose [Mass/Vol] 164 mg/dL High 70-100 The [facility] Comment on above: Performed By: #### 8 [id number] #### [facility] [address] PROTHROMBIN TIMEon 9 INR Coag (PPP) [Relative time] 1.06 {INR} Normal 0.91-1.16 [facility] Comment on above: Order Comment: No: D [...] CHEST 1995;[id number]. Performed By: #### 5 [id number], [id number] #### [facility] [address] [employer] PT Coag (PPP) [Time] 13.8 s Normal 12.3-14.8 [facility] Comment on above: Order Comment: No: D o not add to previous draw Result Comment: ALL RESULTS MUST BE INTERPRETED WITH RESPECT TO BLOOD DRAWING ARTIFACT OR DILUTION ERROR OF ANTICOAGULANT AT THE TIME OF SAMPLING. Performed By: #### 5 [id number], [id number] #### [facility] [address] [employer] SERUM TESTon 08-23 TEST Negative Normal The [facility] Comment on above: Order Comment: Yes: Add to Previous draw if able Performed By: #### 4 [id number] #### [facility] [address] [facility]. [address] TROPONIN-Ion 08-23-2018 Troponin I.cardiac [Mass/Vol] 0.01 ng/mL Normal 0.00-0.04 The [facility] Comment on above: Order Comment: No: D o not add to previous draw Result Comment: REFE RENCE RANGES: 0.00 - 0.04 ng/ml NORMAL 0.05 - 0.50 ng/ml INDETERMINATE > 0.50 ng/ml CONSISTENT WITH AN M.I. Performed By: #### 3 5200 #### [facility] [address] [employer] UFH HEPARIN ASSAYon 08-24-19 19 UNFRACTIONATED HEPARIN 0.42 IU/mL Normal 0.30-0.70 Th e [facility] Comment on above: Order Comment: per beatriz schneider Result Comment: Betty roxaban and Apixaban will interfere with the anti Xa assay used to monitor UFH and LMWH. Performed By: #### 3 0477 #### [facility] [address] UNFRACTIONATED HEPARIN 0.29 IU/mL Low 0.30-0.70 Th e [facility] Comment on above: Result Comment: Zephyr roxaban and Apixaban will interfere with the anti Xa assay used to monitor UFH and LMWH. Performed By: #### 3 0477 #### [facility] [address] [place] [address], [facility] US GALLBLADDERon 08-23-2018 GALLBLADDER [facility] Department of Radiology [address] [place] [id number] Patient Name: SHERLY HUMPHREYS : 1970 Sex: F Age: Race: [place]. Location: [address] [place] [address] Patient Status: I Ordered Date: 08/23/2018 11:30:00 [...] gallbladder. Electronically signed by:Nathan Mauricio. Transcribed by: [email or web address], User Resident: Electronically Signed by: NATHAN MAURICIO @ 08/23/2018 03:33 PM Normal The [facility] Comment on above: Order Comment: No: D o not add to previous draw Vital Signs Date Time Vital Sign Value Performing Clinician Facility 11-26-2024 09:39-0400 Body height 162.56 cm Janene Raineyeyefactive Work Phone: [facility] 11-26-2024 09:39-0400 Body mass index (BMI) [Ratio] 39.8 kg/m2 Janene MiddletonCasaHop Work Phone: [facility] 11-26-2024 09:39-0400 Body weight 105.23 kg Janene JonesElecar Work Phone: [facility] 11-26-2024 09:39-0400 Diastolic blood pressure 75 mm[Hg] Janene Raineyeyefactive Work Phone: [facility] 11-26-2024 09:39-0400 Heart rate 61 /min Janene JonesElecar Work Phone: [facility] 11-26-2024 09:39-0400 Respiratory rate 16 /min Janene Raineyeyefactive Work Phone: [facility] 11-26-2024 09:39-0400 SaO2% (BldA) [Mass fraction] 98 % Janene JonesElecar Work Phone: [facility] 11-26-2024 09:39-0400 Systolic blood pressure 118 mm[Hg] Janene Lew Work Phone: [facility] 11-03-2024 09:50-0400 Body height 170.2 cm Marya Petznick DO Work Phone: [facility] 11-03-2024 09:50-0400 Body mass index (BMI) [Ratio] 36.65 kg/m2 Marya Petznick DO Work Phone: [facility] 11-03-2024 09:50-0400 Body temperature 98.01 [degF] Marya Petznick DO Work Phone: [facility] 11-03-2024 09:50-0400 Body weight 106.14 kg Marya Petznick DO Work Phone: [facility] 11-03-2024 09:50-0400 Diastolic blood pressure 78 mm[Hg] Marya Petznick DO Work Phone: [facility] 11-03-2024 09:50-0400 Heart rate 56 /min Marya Petznick DO Work Phone: [facility] 11-03-2024 09:50-0400 SaO2% (BldA) [Mass fraction] 96 % Marya Petznick DO Work Phone: [facility] 11-03-2024 09:50-0400 Systolic blood pressure 124 mm[Hg] Marya Petznick DO Work Phone: [facility] 09-03-2024 09:40-0400 Body mass index (BMI) [Ratio] 37.59 kg/m2 Janene Lew [employer] Work Phone: [facility] 09-03-2024 09:40-0400 Body temperature 98.49 [degF] Janene Lew [employer] Work Phone: [facility] 09-03-2024 09:40-0400 Body weight 108.86 kg Janene Lew [employer] Work Phone: [facility] 09-03-2024 09:40-0400 Diastolic blood pressure 72 mm[Hg] Janene Lew [employer] Work Phone: [facility] 09-03-2024 09:40-0400 Heart rate 67 /min Janene Lew [employer] Work Phone: [facility] 09-03-2024 09:40-0400 Respiratory rate 22 /min Janene Lew [employer] Work Phone: [facility] 09-03-2024 09:40-0400 SaO2% (BldA) [Mass fraction] 97 % Janene Lew [employer] Work Phone: [facility] 09-03-2024 09:40-0400 Systolic blood pressure 102 mm[Hg] Janene Lew [employer] Work Phone: [facility] 06-16-2024 09:07-0500 Body height 170.2 cm Marya Petznick DO Work Phone: [facility] 06-16-2024 09:07-0500 Body mass index (BMI) [Ratio] 38.37 kg/m2 Marya Petznick DO Work Phone: [facility] 06-16-2024 09:07-0500 Body temperature 98.2 [degF] Marya Petznick DO Work Phone: [facility] 06-16-2024 09:07-0500 Body weight 111.13 kg Marya Petznick DO Work Phone: [facility] 06-16-2024 09:07-0500 Diastolic blood pressure 82 mm[Hg] Marya Petznick DO Work Phone: [facility] 06-16-2024 09:07-0500 Heart rate 61 /min Marya Petznick DO Work Phone: [facility] 06-16-2024 09:07-0500 SaO2% (BldA) [Mass fraction] 97 % Marya Petznick DO Work Phone: [facility] 06-16-2024 09:07-0500 Systolic blood pressure 136 mm[Hg] Marya Petznick DO Work Phone: [facility] 03-06-2024 09:28-0500 Body height 170.2 cm Janene Lew [employer] Work Phone: [facility] 03-06-2024 09:28-0500 Body mass index (BMI) [Ratio] 40.69 kg/m2 Janene Middletonz [employer] Work Phone: [facility] 03-06-2024 09:28-0500 Body temperature 98.49 [degF] Janene Middletonz [employer] Work Phone: [facility] 03-06-2024 09:28-0500 Body weight 117.84 kg Janene Middletonz [employer] Work Phone: [facility] 03-06-2024 09:28-0500 Diastolic blood pressure 84 mm[Hg] Janene Middletonz [employer] Work Phone: [facility] 03-06-2024 09:28-0500 Heart rate 60 /min Janene Middletonz [employer] Work Phone: [facility] 03-06-2024 09:28-0500 Respiratory rate 20 /min Janene Karenholz [employer] Work Phone: [facility] 03-06-2024 09:28-0500 SaO2% (BldA) [Mass fraction] 96 % Janene Middletonz [employer] Work Phone: [facility] 03-06-2024 09:28-0500 Systolic blood pressure 132 mm[Hg] Janene Middletonz [employer] Work Phone: [facility] 02-19-2024 09:23-0500 Body height 162.6 cm Marya Petznick DO Work Phone: [facility] 02-19-2024 09:23-0500 Body mass index (BMI) [Ratio] 46.86 kg/m2 Marya Petznick DO Work Phone: [facility] 02-19-2024 09:23-0500 Body temperature 96.8 [degF] Marya Petznick DO Work Phone: [facility] 02-19-2024 09:23-0500 Body weight 123.83 kg Marya Petznick DO Work Phone: [facility] 02-19-2024 09:23-0500 Diastolic blood pressure 82 mm[Hg] Marya Petznick DO Work Phone: [facility] 02-19-2024 09:23-0500 Heart rate 56 /min Marya Petznick DO Work Phone: [facility] 02-19-2024 09:23-0500 SaO2% (BldA) [Mass fraction] 97 % Marya Petznick DO Work Phone: [facility] 02-19-2024 09:23-0500 Systolic blood pressure 130 mm[Hg] Marya Petznick DO Work Phone: [facility] 12-05-2023 08:35-0400 Body height 162.6 cm Janene Louann [employer] Work Phone: [facility] 12-05-2023 08:35-0400 Body mass index (BMI) [Ratio] 49.06 kg/m2 Janene Louann [employer] Work Phone: [facility] 12-05-2023 08:35-0400 Body temperature 98.71 [degF] Janene Emiz [employer] Work Phone: [facility] 12-05-2023 08:35-0400 Body weight 129.64 kg Janene Louann [employer] Work Phone: [facility] 12-05-2023 08:35-0400 Diastolic blood pressure 88 mm[Hg] Janene Emiz [employer] Work Phone: [facility] 12-05-2023 08:35-0400 Heart rate 66 /min Janene Emiz [employer] Work Phone: [facility] 12-05-2023 08:35-0400 Respiratory rate 20 /min Janene Emiz [employer] Work Phone: [facility] 12-05-2023 08:35-0400 SaO2% (BldA) [Mass fraction] 98 % Janene Aichholz [employer] Work Phone: [facility] 12-05-2023 08:35-0400 Systolic blood pressure 122 mm[Hg] Janene Aichholz [employer] Work Phone: [facility] 11-01-2023 11:00-0400 Diastolic blood pressure 83 mm[Hg] Janene Aichholz Work Phone: [facility] 11-01-2023 11:00-0400 Heart rate 52 /min Janene Aichholz Work Phone: [facility] 11-01-2023 11:00-0400 Respiratory rate 16 /min Janene Aichholz Work Phone: [facility] 11-01-2023 11:00-0400 SaO2% (BldA) [Mass fraction] 98 % Janene Aichholz Work Phone: [facility] 11-01-2023 11:00-0400 Systolic blood pressure 144 mm[Hg] Janene Aichholz Work Phone: [facility] 11-01-2023 10:30-0400 Inhaled oxygen flow rate 8 L/min Janene Aichholz Work Phone: [facility] 11-01-2023 07:28-0400 Body height 162.56 cm Janene Aichholz Work Phone: [facility] 11-01-2023 07:28-0400 Body temperature 97.9 [degF] Janene Aichholz Work Phone: [facility] 11-01-2023 07:28-0400 Body weight 129.72 kg Janene Aichholz Work Phone: [facility] 10-16-2023 13:05-0400 Body height 162.56 cm Janene Aichholz Work Phone: [facility] 10-16-2023 13:05-0400 Body mass index (BMI) [Ratio] 51.5 kg/m2 Janene Aichholz Work Phone: [facility] 10-16-2023 13:05-0400 Body temperature 97.3 [degF] Janene Aichholz Work Phone: [facility] 10-16-2023 13:05-0400 Body weight 136.3 kg Janene Aichholz Work Phone: [facility] 10-16-2023 13:05-0400 Diastolic blood pressure 76 mm[Hg] Janene Aichholz Work Phone: [facility] 10-16-2023 13:05-0400 Heart rate 69 /min Janene Aichholz Work Phone: [facility] 10-16-2023 13:05-0400 Respiratory rate 18 /min Janene Aichholz Work Phone: [facility] 10-16-2023 13:05-0400 SaO2% (BldA) [Mass fraction] 99 % Janene Aichholz Work Phone: [facility] 10-16-2023 13:05-0400 Systolic blood pressure 125 mm[Hg] Janene Aichholz Work Phone: [facility] 10-02-2023 08:00-0400 Body temperature 97.9 [degF] Janene Aichholz Work Phone: [facility] 10-02-2023 08:00-0400 Diastolic blood pressure 82 mm[Hg] Janene Aichholz Work Phone: [facility] 10-02-2023 08:00-0400 Heart rate 58 /min Janene Aichholz Work Phone: [facility] 10-02-2023 08:00-0400 Respiratory rate 16 /min Janene Aichholz Work Phone: [facility] 10-02-2023 08:00-0400 SaO2% (BldA) [Mass fraction] 100 % Janene Aichholz Work Phone: [facility] 10-02-2023 08:00-0400 Systolic blood pressure 138 mm[Hg] Janene Aichholz Work Phone: [facility] 10-02-2023 05:02-0400 Body weight 139.8 kg Janene Aichholz Work Phone: [facility] 10-01-2023 05:34-0400 Body height 162.56 cm Janene Aichholz Work Phone: [facility] 08-15-2023 10:02-0400 Body height 162.56 cm Janene Aichholz Work Phone: [facility] 08-15-2023 10:02-0400 Body mass index (BMI) [Ratio] 54.6 kg/m2 Janene Aichholz Work Phone: [facility] 08-15-2023 10:02-0400 Body temperature 96.9 [degF] Janene Aichholz Work Phone: [facility] 08-15-2023 10:02-0400 Body weight 144.24 kg Janene Aichholz Work Phone: [facility] 08-15-2023 10:02-0400 Diastolic blood pressure 77 mm[Hg] Janene Aichholz Work Phone: [facility] 08-15-2023 10:02-0400 Heart rate 59 /min Janene Aichholz Work Phone: [facility] 08-15-2023 10:02-0400 Respiratory rate 18 /min Janene Aichholz Work Phone: [facility] 08-15-2023 10:02-0400 SaO2% (BldA) [Mass fraction] 98 % Janene Lew Work Phone: [facility] 08-15-2023 10:02-0400 Systolic blood pressure 130 mm[Hg] Janene Lew Work Phone: [facility] 08-14-2022 10:15-0400 Body height 162.56 cm Ivan Sams Other [employer] Other 08-14-2022 10:15-0400 Body mass index (BMI) [Ratio] 51.63 kg/m2 Ivan Sams Other [employer] Other 08-14-2022 10:15-0400 Body weight 136.44 kg Ivan Sams Other [employer] Other 08-14-2022 10:15-0400 Diastolic blood pressure 80 mm[Hg] Ivan Sams Other [employer] Other 08-14-2022 10:15-0400 SaO2% (BldA) [Mass fraction] 99 % Ivan Sams Other [employer] Other 08-14-2022 10:15-0400 Systolic blood pressure 140 mm[Hg] Ivan Sams Other [employer] Other 07-03-2022 12:30-0400 Body height 162.56 cm Ivan Sams Other [employer] Other 07-03-2022 12:30-0400 Body mass index (BMI) [Ratio] 51.39 kg/m2 Ivan Sams Other [employer] Other 07-03-2022 12:30-0400 Body weight 135.81 kg Ivan Sams Other [employer] Other 07-03-2022 12:30-0400 Diastolic blood pressure 84 mm[Hg] Ivan Sams Other [employer] Other 07-03-2022 12:30-0400 SaO2% (BldA) [Mass fraction] 99 % Ivan Sams Other [facility] [employer] Other 07-03-2022 12:30-0400 Systolic blood pressure 142 mm[Hg] Ivan Sams Other [facility] [employer] Other 06-24-2022 15:59-0500 Body height 162.56 cm Janene Aichholz Work Phone: [facility] 06-24-2022 15:59-0500 Body temperature 98.2 [degF] Janene Aichholz Work Phone: [facility] 06-24-2022 15:59-0500 Body weight 134.4 kg Janene Aichholz Work Phone: [facility] 06-24-2022 15:59-0500 Diastolic blood pressure 95 mm[Hg] Janene Aichholz Work Phone: [facility] 06-24-2022 15:59-0500 Heart rate 94 /min Janene Aichholz Work Phone: [facility] 06-24-2022 15:59-0500 Respiratory rate 20 /min Janene Aichholz Work Phone: [facility] 06-24-2022 15:59-0500 SaO2% (BldA) [Mass fraction] 96 % Janene Aichholz Work Phone: [facility] 06-24-2022 15:59-0500 Systolic blood pressure 187 mm[Hg] Janene Lew Work Phone: [facility] 05-12-2022 12:00-0500 Body height 162.56 cm Christian Hamilton Other [employer] Other 05-12-2022 12:00-0500 Body mass index (BMI) [Ratio] 51.94 kg/m2 Christian Hamilton Other [employer] Other 05-12-2022 12:00-0500 Body weight 137.26 kg Christian Hamilton Other [employer] Other 04-25-2022 12:20-0500 Body height 162.56 cm Halle [employer] Other [employer] Other 04-25-2022 12:20-0500 Body mass index (BMI) [Ratio] 51.94 kg/m2 Aziz [employer] Other [employer] Other 04-25-2022 12:20-0500 Body temperature 97.5 [degF] Aziz [employer] Other [employer] Other 04-25-2022 12:20-0500 Body weight 137.26 kg Aziz [employer] Other [employer] Other 04-25-2022 12:20-0500 Diastolic blood pressure 80 mm[Hg] Aziz Bakhous Other [employer] Other 04-25-2022 12:20-0500 Respiratory rate 18 /min Aziz [employer] Other [employer] Other 04-25-2022 12:20-0500 SaO2% (BldA) [Mass fraction] 97 % Halle Mac Other [employer] Other 04-25-2022 12:20-0500 Systolic blood pressure 140 mm[Hg] Halle Mac Other [employer] Other 01-25-2022 16:15-0400 Body height 162.56 cm Emma Bolivar Other [employer] Other 01-25-2022 16:15-0400 Body mass index (BMI) [Ratio] 52.78 kg/m2 Emma Bolivar Other [employer] Other 01-25-2022 16:15-0400 Body temperature 97.1 [degF] Emma Bolivar Other [employer] Other 01-25-2022 16:15-0400 Body weight 139.48 kg Emma Bolivar Other [employer] Other 01-25-2022 16:15-0400 Diastolic blood pressure 70 mm[Hg] Emma Bolivar Other [employer] Other 01-25-2022 16:15-0400 SaO2% (BldA) [Mass fraction] 98 % Emma Bolivar Other [employer] Other 01-25-2022 16:15-0400 Systolic blood pressure 142 mm[Hg] Emma Bolivar Other [employer] Other 12-06-2021 12:20-0400 Body height 162.56 cm Christian Hamilton Other [employer] Other 12-06-2021 12:20-0400 Body mass index (BMI) [Ratio] 46.34 kg/m2 Christian Hamilton Other [facility] Other 12-06-2021 12:20-0400 Body weight 122.47 kg Christian Hamilton Other [facility] Other 11-10-2021 16:20-0400 Body height 162.56 cm Christian Hamilton Other [facility] Other 11-10-2021 16:20-0400 Body mass index (BMI) [Ratio] 46.34 kg/m2 Christian Hamilton Other [facility] Other 11-10-2021 16:20-0400 Body weight 122.47 kg Christian Hamilton Other [facility] Other 09-29-2021 14:00-0400 Body height 162.56 cm Christian Hamilton Other [facility] Other 09-29-2021 14:00-0400 Body mass index (BMI) [Ratio] 46 kg/m2 Christian Hamilton Other [facility] Other 09-29-2021 14:00-0400 Body weight 121.56 kg Christian Hamilton Other [facility] Other 08-30-2021 15:40-0400 Body height 162.56 cm Christian Hamilton Other [facility] Other 08-30-2021 15:40-0400 Body mass index (BMI) [Ratio] 46 kg/m2 Christian Hamilton Other [facility] Other 08-30-2021 15:40-0400 Body weight 121.56 kg Christian Hamilton Other [employer] Other Encounters Encounter Date Encounter Type Care Provider Facility Start: 12-02-2024 ambulatory Joshua Petersen DMD [facility] Start: 11-26-2024 End: 11-26-2024 ambulatory Janene Moses Lew Work Phone: [facility] Work Phone: Start: 11-26-2024 End: 11-26-2024 Patient encounter procedure Halle Mac MD -[facility] Work Phone: Start: 11-21-2024 End: 11-23-2024 Refill Janene Louann [employer] Work Phone: [facility] Comment on above: Restless leg syndrom e Start: 11-18-2024 End: 11-18-2024 Patient encounter procedure Halle Mac MD -[facility] Work Phone: Start: 11-18-2024 End: 11-18-2024 ambulatory Janene Lew Work Phone: [facility] Work Phone: Start: 11-17-2024 End: 11-17-2024 Clinisync Result Encounter Generic External Data Provider [facility] External Department Unsolicited Start: 11-17-2024 End: 11-17-2024 Clinisync Result Encounter Generic External Data Provider [facility] External Department Unsolicited Start: 11-11-2024 End: 11-12-2024 Refill Janene Louann [employer] Work Phone: [facility] Comment on above: Muscle spasm Start: 11-06-2024 Registered Recurring Maximo Alonso MD [facility] Start: 11-06-2024 ambulatory Janene Moses Lew Facilit y:[facility] Start: 11-03-2024 End: 11-03-2024 Bamboo flowsheet Marya Castorena DO Work Phone: [facility] 230 Start: 11-03-2024 End: 11-03-2024 Bamboo flowsheet Marya Castorena DO Work Phone: [facility] 230 Start: 11-03-2024 End: 11-03-2024 Office outpatient visit 25 minutes Marya Castorena DO Work Phone: [facility] 230 Comment on above: Type 2 diabetes chiid itus with other circulatory complications (HCC) (Primary [...] (BMI) of 36.0 to 36.9 in adult ([facility]-HCC) Start: 11-03-2024 End: 11-03-2024 ambulatory MARYA CASTORENA Not Available Start: 10-16-2024 End: 10-16-2024 ambulatory [facility] Start: 10-16-2024 End: 10-16-2024 Encounter for other preprocedural examination [facility] Start: 10-07-2024 End: 10-07-2024 Clinisync Result Encounter Generic External Data Provider [facility] External Department Unsolicited Start: 10-07-2024 End: 10-07-2024 Clinisync Result Encounter Generic External Data Provider [facility] External Department Unsolicited Start: 09-09-2024 End: 09-09-2024 Refill Janene Lew [employer] Work Phone: [facility] Comment on above: Restless leg syndrom e Start: 09-03-2024 End: 09-03-2024 Patient encounter status Janene Lew NP Work Phone: [facility] Start: 09-03-2024 End: 09-03-2024 Periodic preventive med est patient 40-64yrs Janene Lew NP Work Phone: [facility] Comment on above: Encounter for wellne ss [...] (CMS/HCC) Start: 09-03-2024 End: 09-03-2024 ambulatory JANENE AICHHOLZ Not Available Start: 09-01-2024 End: 09-02-2024 Refill Janene Aichholz [employer] Work Phone: [facility] Comment on above: Primary hypertension (CMS/HCC) Muscle spasm Start: 08-28-2024 End: 08-28-2024 Clinisync Result Encounter Janene Aichholz [employer] Work Phone: [facility] External Department Unsolicited Start: 08-28-2024 End: 08-28-2024 Clinisync Result Encounter Janene Aichholz [employer] Work Phone: [facility] External Department Unsolicited Start: 08-12-2024 End: 08-14-2024 Refill Janene Aichholz [employer] Work Phone: [facility] Start: 07-25-2024 End: 07-25-2024 Refill Janene Aichholz [employer] Work Phone: [facility] Comment on above: Restless leg syndrom e Start: 07-15-2024 End: 07-15-2024 Orders Only Janene Aichholz [employer] Work Phone: [facility] Comment on above: Acute foot pain, lef t (Primary Dx); Acute left ankle pain Start: 06-16-2024 End: 06-16-2024 Bamwilliam flowssouth Castorena DO Work Phone: [facility] [...] of 38.0 to 38.9 in adult (CMS/HCC) (Primary Dx); Type 2 diabetes mellitus with other circulatory complications (CMS/[facility]); Type 2 diabetes mellitus with stage 3a chronic kidney disease, without long-term current use of insulin ([facility]) (CMS/[facility]) Start: 06-16-2024 End: 06-16-2024 ambulatory MARYA CASTORENA Not Available Start: 05-27-2024 End: 05-27-2024 Refill Janene Aichholz [employer] Work Phone: [facility] Comment on above: Muscle spasm Start: 03-20-2024 End: 03-21-2024 Refill Janene Aichholz [employer] Work Phone: [facility] Comment on above: Restless leg syndrom e Start: 03-11-2024 End: 03-11-2024 ambulatory [facility] Facility:[facility] Start: 03-06-2024 End: 03-06-2024 Bamboo flowsheet Janene Louann [employer] Work Phone: [facility] Start: 03-06-2024 End: 03-06-2024 Bamboo flowsheet Janene Aichholz [employer] Work Phone: [facility] Start: 03-06-2024 End: 03-06-2024 Office outpatient visit 25 minutes Janene Louann [employer] Work Phone: [facility] Comment on above: Primary hypertension (CMS/HCC) (Primary Dx); Spinal stenosis of lumbar region at multiple levels; Restless leg syndrome; URIEL (obstructive sleep apnea); Coronary arteriosclerosis (CMS/HCC); Stage 3b chronic kidney disease (HCC) ([facility]/HCC); Swelling of both lower extremities; Lower extremity edema; Type 2 diabetes mellitus with stage 3a chronic kidney disease, without long-term current use of insulin (HCC) ([facility]/HCC); Class 3 severe obesity due to excess calories with serious comorbidity and body mass index (BMI) of 45.0 to 49.9 in adult ([facility]); Bipolar affective disorder, remission status unspecified ([facility]); Generalized anxiety disorder ([facility]); Vitamin D deficiency; Vitamin B12 deficiency; H/O bariatric surgery; Acute non-recurrent pansinusitis Start: 03-06-2024 End: 03-06-2024 ambulatory JANENE AICHHOLZ Not Available Start: 02-22-2024 End: 02-25-2024 Refill Janene Aichholz [employer] Work Phone: [facility] Comment on above: Muscle spasm Start: 02-19-2024 End: 02-19-2024 Office outpatient visit 25 minutes Marya Castorena DO Work Phone: [facility] 230 Comment on above: Type 2 diabetes chidi itus with other circulatory complications ([facility]) (Primary Dx); Type 2 diabetes mellitus with stage 4 chronic kidney disease, without long-term current use of insulin ([facility]/HCC); Type 2 diabetes mellitus with stage 3a chronic kidney disease, without long-term current use of insulin (HCC) ([facility]/HCC); Class 3 severe obesity due to excess calories with serious comorbidity and body mass index (BMI) of 45.0 to 49.9 in adult ([facility]) Start: 02-19-2024 End: 02-19-2024 ambulatory MARYA CASTORENA Not Available Start: 01-14-2024 End: 01-14-2024 Refill Janene Aichholz [employer] Work Phone: [facility] Comment on above: Primary hypertension ([facility]/HCC) Start: 12-19-2023 End: 12-19-2023 Refill Janene Aichholz [employer] Work Phone: [facility] Comment on above: Type 2 diabetes chidi itus with stage 4 chronic kidney disease, without long-term current use of insulin ([facility]) (Primary Dx) Start: 12-18-2023 End: 12-18-2023 Clinisync Result Encounter Janene Karenholz [employer] Work Phone: [facility] External Department Unsolicited Start: 12-18-2023 End: 12-18-2023 Clinisync Result Encounter Janene Aichholz [employer] Work Phone: [facility] External Department Unsolicited Start: 12-18-2023 End: 12-18-2023 Refill Janene Aichholz [employer] Work Phone: [facility] Comment on above: Restless leg syndrom e Start: 12-18-2023 End: 12-18-2023 Refill Janene Aichholz [employer] Work Phone: [facility] Comment on above: Antibiotic-induced y east infection (Primary Dx) Start: 12-05-2023 End: 12-05-2023 Bamboo flowsheet Janene Aichholz [employer] Work Phone: [facility] Start: 12-05-2023 End: 12-05-2023 Bamboo flowsheet Janene Aichholz [employer] Work Phone: [facility] Start: 12-05-2023 End: 12-07-2023 Refill Janene Aichholz [employer] Work Phone: [facility] Comment on above: Muscle spasm Start: 12-05-2023 End: 12-05-2023 Office outpatient visit 25 minutes Janene Aichholz [employer] Work Phone: [facility] Comment on above: Left lower quadrant abdominal pain (Primary Dx); Morbid (severe) obesity due to excess calories (CMS/HCC); Body mass index (BMI) 45.0-49.9, adult (CMS/HCC); Restless leg syndrome; Stage 3b chronic kidney disease (HCC) (CMS/HCC) Start: 12-05-2023 End: 12-05-2023 ambulatory JANENE AICHHOLZ Not Available Start: 12-03-2023 End: 12-03-2023 [facility]ulatory [facility] Start: 11-19-2023 End: 11-19-2023 ambulatory MARYA Andrade RAFFAELE Not Available Start: 11-12-2023 End: 11-12-2023 ambulatory BAN ERNA Ashley Not Available Start: 11-01-2023 End: 11-01-2023 Admission to same day surgery center Janene Lew Work Phone: [facility] [place] Start: 11-01-2023 End: 11-01-2023 ambulatory Janeneamanda Lew Work Phone: [facility] Work Phone: Start: 10-29-2023 Registered Recurring Janeneamanda esiptia Work Phone: [facility]- [facility] Start: 10-16-2023 End: 10-16-2023 ambulatory Janene Moses Lew Work Phone: [facility] Work Phone: Start: 10-16-2023 End: 10-16-2023 Patient encounter procedure Janene Lew Work Phone: [facility] Neph[facility] Work Phone: Start: 10-16-2023 Registered Recurring Janene espitia Work Phone: [facility] Start: 10-11-2023 End: 10-11-2023 ambulatory Janene Moses Lew Work Phone: [facility] Work Phone: Start: 10-11-2023 End: 10-11-2023 Patient encounter procedure Janeneamanda Lew Work Phone: [facility] [place] Work Phone: Start: 10-01-2023 Non-patient / Non-visit Janene field Work Phone: [facility] Work Phone: Start: 10-01-2023 End: 10-02-2023 Evaluation and management of inpatient Janene Lew Work Phone: [facility] [place] [facility] Work Phone: Start: 09-24-2023 End: 09-24-2023 ambulatory Marcella Conway MD Facility: [facility] Start: 09-03-2023 Registered Recurring Janene espitia Work Phone: [facility] Start: 08-15-2023 End: 08-15-2023 Patient encounter procedure Janene Louann Work Phone: [facility] Work Phone: Start: 08-10-2023 End: 08-10-2023 ambulatory Janene Lew Work Phone: [facility] Work Phone: Start: 08-10-2023 End: 08-10-2023 Patient encounter procedure Janene Louann Work Phone: [facility] [place] Work Phone: Start: 07-09-2023 End: 07-09-2023 ambulatory Marcella Conway MD Facility: [facility] Start: 06-19-2023 End: 06-19-2023 Patient encounter procedure Janene Louann Work Phone: [facility] [place] Work Phone: Start: 05-25-2023 End: 05-25-2023 ambulatory MARKEL HAQ Facility:[facility] Start: 05-17-2023 End: 05-17-2023 ambulatory Janene Lew Work Phone: [facility] Work Phone: Start: 05-17-2023 End: 05-17-2023 Patient encounter procedure Janene Lew Work Phone: [facility] [place] Work Phone: Start: 03-15-2023 Registered Recurring Janene espitia Work Phone: [facility] Start: 02-19-2023 End: 02-19-2023 ambulatory Marcella Conway MD Facility:[facility] Start: 01-01-2023 End: 01-01-2023 ambulatory Marcella Conway MD Facility:[facility] [place] Start: 11-29-2022 End: 11-29-2022 ambulatory Halle Webers Other [facility] Other Start: 11-29-2022 Telephone encounter Halle Mac [facility] Start: 09-18-2022 End: 09-18-2022 ambulatory Ivan Latrell Other [facility] Other Start: 09-18-2022 Telephone encounter Ivan Latrell [facility] Start: 09-07-2022 End: 09-07-2022 ambulatory PAINT SPRAY INSPECTOR JANENE LEW Facility:[facility] Start: 08-14-2022 End: 08-14-2022 ambulatory Ivan Latrell Other [facility] Other Start: 08-14-2022 Office outpatient vi sit 25 minutes Ivan Latrell [facility] Start: 07-03-2022 End: 07-03-2022 ambulatory Ivan Latrell Other [facility] Other Start: 07-03-2022 Office consultation new/estab patient 60 min Ivan Latrell [facility] Start: 06-24-2022 End: 06-24-2022 Emergency department patient visit Janene Lew Work Phone: [facility] Work Phone: Start: 06-08-2022 End: 06-09-2022 ambulatory AGUSTINA LEW Facility:[facility] Start: 05-29-2022 End: 05-30-2022 ambulatory PAINT SPRAY INSPECTOR JANENE LEW Facility:[facility] Start: 05-13-2022 ambulatory PAINT SPRAY INSPECTOR JANENE LEW Facil ity:[facility] Start: 05-12-2022 End: 05-12-2022 ambulatory Christian Hamilton Other [facility] [employer] Other Start: 05-12-2022 Office outpatient vi sit 15 minutes Christian Hamilton [facility] Neurosurgery Start: 04-25-2022 End: 04-25-2022 ambulatory Halle Mac Other [facility] [employer] Other Start: 04-25-2022 Office outpatient ne w 30 minutes Aziz Bakmichaels [facility] [place] Start: 03-29-2022 End: 03-30-2022 ambulatory AGUSTINA LEW Facility:[facility] Start: 03-23-2022 End: 03-24-2022 ambulatory AGUSTINA LEW Facility:[facility] Start: 02-19-2022 End: 02-19-2022 ambulatory AGUSTINA LEW Facility:[facility] Start: 02-16-2022 End: 02-16-[address] MYRIAM PERRIN . Facility:[facility] Start: 02-15-2022 ambulatory AGUSTINA LEW Facil ity:[facility] Start: 01-25-2022 End: 01-25-2022 Patient encounter procedure Janene Lew Work Phone: [facility] Start: 01-25-2022 End: 01-25-2022 ambulatory Janene Lopes [place] Work Phone: [facility] Work Phone: Start: 01-25-2022 Office outpatient vi sit 25 minutes Emma Bolivar [facility] Start: 01-25-2022 End: 01-26-2022 ambulatory PAINT SPRAY INSPECTOR JANENE AICHHOLZ Facility:[facility] Start: 01-23-2022 End: 01-24-2022 ambulatory PAINT SPRAY INSPECTOR JANENE AICHHOLZ Facility:[facility] Start: 01-12-2022 End: 01-13-2022 ambulatory PAINT SPRAY INSPECTOR JANENE AICHHOLZ Facility:[facility] Start: 12-21-2021 End: 12-22-2021 ambulatory PAINT SPRAY INSPECTOR JANENE AICHHOLZ Facility:[facility] Start: 12-06-2021 End: 12-06-2021 ambulatory Christian Hamilton Other [facility] Other Start: 12-06-2021 Office outpatient vi sit 15 minutes Christian Hamilton [facility] Neurosurgery Start: 11-30-2021 End: 11-30-2021 ambulatory PAINT SPRAY INSPECTOR JANENE AICHHOLZ Facility:[facility] Start: 11-28-2021 End: 11-29-2021 ambulatory PAINT SPRAY INSPECTOR JANENE AICHHOLZ Facility:[facility] Start: 11-14-2021 End: 11-14-2021 ambulatory Janene J Emiz Work Phone: [facility] Work Phone: Start: 11-14-2021 End: 11-14-2021 Discharged Recurring Janene Reddjacek Work Phone: [facility] [place] Start: 11-10-2021 End: 11-10-2021 ambulatory Christian Hamilton Other [facility] Other Start: 11-10-2021 Postop follow up vis it related to original px Christian Hamilton [facility] Neurosurgery Start: 10-28-2021 End: 10-29-2021 ambulatory PAINT SPRAY INSPECTOR JANENE AICHHOLZ Facility:[facility] Start: 10-02-2021 End: 10-02-2021 ambulatory PAINT SPRAY INSPECTOR JANENE AICHHOLZ Facility:[facility] Start: 09-29-2021 End: 09-29-2021 ambulatory Christian Hamilton Other [facility] Other Start: 09-29-2021 Postop follow up vis it related to original px Christian Hamilton [facility] Neurosurgery Start: 08-30-2021 End: 08-30-2021 ambulatory Christian Hamilton Other [facility] [employer] Other Start: 08-30-2021 Postop follow up vis it related to original px Christian Hamilton [facility] Start: 08-12-2021 [facility] Start: 08-12-2021 End: 08-12-2021 ambulatory Christian Hamilton Other [facility] [employer] Other Start: 08-23-2018 End: 08-25-2018 Evaluation and management of inpatient Peng Merino Facility:[facility] Procedures Date Procedure Procedure Detail Performing Clinician Start: 11-17-2024 NM ROZ PERF SPECT REST STR Generic External Data Provider Start: 11-03-2024 Hemoglobin glycosyla joaquin a1c Marya Andrade Petznick DO Work Phone: Start: 10-07-2024 XR CHEST 2V Generic Ex ternal Data Provider Start: 10-07-2024 ALL CBC WITH AUTO DIFF Generic External Data Provider Start: 10-07-2024 ECG 12-LEAD Generic Ex ternal Data Provider Start: 08-28-2024 Radex hip unilateral with pelvis 2-3 views Generic External Data Provider Start: 08-28-2024 ALL CBC WITH AUTO DIFF Janene Aiczehraz [employer] Work Phone: Start: 06-16-2024 Hemoglobin glycosyla joaquin a1c Marya Petznick DO Work Phone: Start: 02-19-2024 Hemoglobin glycosyla joaquin a1c Marya M Petznick DO Work Phone: Start: 12-18-2023 ALL CBC WITH AUTO DIFF Janene Aichholz [employer] Work Phone: Start: 11-01-2023 End: 11-01-2023 Colonoscopy Janene Emiz Work Phone: Start: 09-28-2023 Mammography Janene Jose mcfarland [employer] Work Phone: Start: 09-11-2023 History of percutane ous transluminal coronary angioplasty History of PTCA Janene Louann [employer] Work Phone: Start: 05-17-2023 Urine culture Janene Karen espitia Work Phone: Start: 08-23-2018 FLUOROSCOPY OF MULTI PLE CORONARY ARTERIES USING OTH CONTRAST JAYAB Amanda CARLOSShannon Start: 05-18-2016 Microscopic observat ion [Identifier] in Cervix by Cyto stain Janene Lew [employer] Work Phone: History of percutane ous transluminal coronary angioplasty History of PTCA Janene Lew Work Phone: Plan of Treatment Date Care Activity Detail Author Start: 10-31-2033 Screening for malignant neoplasm of colon [facility] Start: 09-05-2025 Glaucoma screening Diabetes: Retinopathy Screening [facility] Start: 08-28-2025 Urine screening for protein Diabetes: Urine Protein Screening [facility] Start: 05-05-2025 End: 05-05-2025 Patient encounter procedure [facility] 230 Start: 02-03-2025 Hemoglobin A1c measurement Diabetes: Hemoglobin A1C [facility] Start: 12-16-2024 End: 12-16-2024 Patient encounter procedure 12/16/2024 8:30 AM EDT Office Visit [facility] [address] [place] [phone] Janene Lew NP [address] [place] [phone] [facility] Start: 12-15-2024 Influenza vaccination Influenza Vaccine (#1) [facility] Start: 12-04-2024 End: 12-04-2024 Patient encounter procedure 12/04/2024 8:40 AM EDT Office Visit [facility] [address] [place] [phone] Janene Lew NP [address] [place] [phone] [facility] Start: 11-03-2024 End: 11-03-2024 Patient encounter procedure [facility] 230 Comment on above: Arrived Start: 10-20-2024 End: 10-20-2024 Patient encounter procedure 10/20/2024 10:30 AM EDT Office Visit [facility] [address] [place] [phone] Marya Castorena DO [address] [place] [address] [facility] 230 Start: 10-04-2024 End: 11-03-2025 MG Breast - bilateral Screening Bilateral screening mammogram Imaging Routine Encounter for screening mammogram for malignant neoplasm of breast Expected: 10/04/2024 (Approximate), Expires: 11/03/2025 [facility] Work Phone: Comment on above: Expected: 10/04/2024 (Approximate), Expi res: 11/03/2025 Start: 09-27-2024 Screening for malignant neoplasm of breast Mammogram [facility] Start: 09-16-2024 Hemoglobin A1c measurement Diabetes: Hemoglobin A1C [facility] Start: 09-03-2024 End: 09-03-2024 Patient encounter procedure 09/03/2024 9:40 AM EDT Office Visit [facility] [address] [place] [address] Janene Lew NP [address] [place] [address] [facility] Start: 07-15-2024 End: 07-15-2025 XR Ankle - left 3 Views XR ankle 3+ views left Imaging Routine Acute left ankle pain Expected: 07/15/2024, Expires: 07/15/2025 [facility] Work Phone: Comment on above: Expected: 07/15/2024, Expires: Start: 07-15-2024 End: 07-15-2025 XR Foot - left 3 Views XR foot 3+ views left Imaging Routine Acute foot pain, left Expected: 07/15/2024, Expires: 07/15/2025 [facility] Comment on above: Expected: 07/15/2024, Expires: Start: 06-19-2024 End: 06-19-2024 Patient encounter procedure 06/19/2024 10:15 AM EST Office Visit [facility] [address] [place] [phone] Marya Castorena, DO [address] [place] [address] [facility] 230 Start: 06-16-2024 End: 06-16-2024 Patient encounter procedure 06/16/2024 9:15 AM EST Office Visit [facility] [address] [place] [phone] Marya Castorena, DO [address] [place] [address] Arrived [facility] 230 Comment on above: Arrived Start: 05-21-2024 Hemoglobin A1c measurement Diabetes: Hemoglobin A1C [facility] Start: 05-10-2024 Urine screening for protein Diabetes: Urine Protein Screening [facility] Start: 03-06-2024 End: 03-06-2025 25-hydroxyvitamin D3 [Mass/volume] in Serum or Plasma Vitamin D 25 hydroxy Lab Routine Vitamin D deficiency Expected: 03/06/2024 (Approximate), Expires: 03/06/2025 [facility] Comment on above: Expected: 03/06/2024 (Approximate), Expi res: 03/06/2025 Start: 03-06-2024 End: 03-06-2025 CBC W Auto Differential panel - Blood CBC and differential Lab Routine Coronary arteriosclerosis (CMS/HCC) Stage 3b chronic kidney disease (HCC) (CMS/HCC) Expected: 03/06/2024 (Approximate), Expires: 03/06/2025 [facility] Work Phone: Comment on above: Expected: 03/06/2024 (Approximate), Expi res: 03/06/2025 Start: 03-06-2024 End: 03-06-2025 Cobalamin (Vitamin B12) [Mass/volume] in Serum or Plasma Vitamin B12 Lab Routine Vitamin B12 deficiency Expected: 03/06/2024 (Approximate), Expires: 03/06/2025 [facility] Comment on above: Expected: [...] D deficiency Expected: 03/06/2024 (Approximate), Expires: 03/06/2025 [facility] Comment on above: Expected: 03/06/2024 (Approximate), Expi res: 03/06/2025 Start: 03-06-2024 End: 03-06-2025 Ferritin [Mass/volume] in Serum or Plasma Ferritin Lab Routine H/O bariatric surgery Expected: 03/06/2024 (Approximate), Expires: 03/06/2025 [facility] Comment on above: Expected: 03/06/2024 (Approximate), Expi res: 03/06/2025 Start: 03-06-2024 End: 03-06-2025 Iron and Iron binding capacity panel - Serum or Plasma Iron level Lab Routine H/O bariatric surgery Expected: 03/06/2024 (Approximate), Expires: 03/06/2025 [facility] Comment on above: Expected: 03/06/2024 (Approximate), Expi res: 03/06/2025 Start: 03-06-2024 End: 03-06-2025 Lipid 1996 panel - Serum or Plasma Lipid panel Lab Routine Coronary arteriosclerosis (CMS/HCC) Expected: 03/06/2024 (Approximate), Expires: 03/06/2025 [facility] Comment on above: Expected: 03/06/2024 (Approximate), Expi res: 03/06/2025 Start: 03-06-2024 End: 03-06-2025 Microalbumin/Creatinine panel in random Urine Microalbumin / creatinine, urine ratio Lab Routine Primary hypertension (CMS/HCC) Stage 3b chronic kidney disease (HCC) (CMS/HCC) Expected: 03/06/2024 (Approximate), Expires: 03/06/2025 [facility] Comment on above: Expected: 03/06/2024 (Approximate), Expi res: 03/06/2025 Start: 03-06-2024 End: 03-06-2025 Urinalysis complete panel - Urine Urinalysis with reflex microscopic (clean catch) Lab Routine Primary hypertension (CMS/HCC) Stage 3b chronic kidney disease (HCC) (CMS/HCC) Expected: 03/06/2024 (Approximate), Expires: 03/06/2025 [facility] Comment on above: Expected: 03/06/2024 (Approximate), Expi res: 03/06/2025 Start: 03-06-2024 End: 03-06-2024 Patient encounter procedure [facility] Comment on above: Spinal stenosis of [...] 02/19/2024 9:30 AM EST Office Visit [facility] [address] [place] [id number] Marya Castorena DO [address] [place] [address] [facility] [address] Start: 02-14-2024 Influenza vaccination Influenza Vaccine (#1) [facility] Comment on above: Postponed from 12/16/2023 (Patient Does Not Have Time) Start: 12-25-2023 Hemoglobin A1c measurement Diabetes: Hemoglobin A1C [facility] Start: 12-05-2023 End: 12-04-2024 Basic metabolic 1998 panel - Serum or Plasma Basic metabolic panel Lab Routine Left lower quadrant abdominal pain Expected: 12/05/2023 (Approximate), Expires: 12/04/2024 [facility] Comment on above: Expected: 12/05/2023 (Approximate), Expi res: 12/04/2024 Start: 12-05-2023 End: 12-04-2024 CBC W Auto Differential panel - Blood CBC and differential Lab Routine Left lower quadrant abdominal pain Expected: 12/05/2023 (Approximate), Expires: 12/04/2024 [facility] Comment on above: Expected: 12/05/2023 (Approximate), Expi res: 12/04/2024 Start: 12-05-2023 End: 12-04-2024 XR Abdomen Single view XR ABDOMEN 2 VIEW Imaging Routine Left lower quadrant abdominal pain Expected: 12/05/2023, Expires: 12/04/2024 [facility] Work Phone: Comment on above: Expected: 12/05/2023, Expires: Start: 12-05-2023 End: 12-05-2023 Patient encounter procedure 12/05/2023 8:40 AM EDT Office Visit [facility] [address] [place] [id number] Janene Lew NP [address] [place] [address] Morbid (severe) obesity due to excess calories (CMS/HCC); Body mass index (BMI) 45.0-49.9, adult (CMS/HCC) [facility] Comment on above: Morbid (severe) obesity due to excess ca lories (CMS/HCC); Body mass index (BMI) 45.0-49.9, adult (CMS/HCC) Start: 11-01-2023 [facility] Start: 10-02-2023 [facility] Start: 10-01-2023 Referral to electronic organ mechanic [facility] Start: 10-01-2023 Hospital admission [facility] Start: 05-17-2023 Bacteria identified in Urine by Culture [facility] Start: 05-18-2019 Screening for malignant neoplasm of cervix Pap Smear [facility] Start: 2000 Screening for malignant neoplasm of cervix HPV/Cotest [facility] Start: 1970 Screening for malignant neoplasm of colon [facility] Patient Education [facility] Work Phone: Patient referral [facility] Work Phone: Renal function 1999 panel - Serum or Plasma [facility] Renal function 1999 panel - Serum or Plasma [facility] Renal function 1999 panel - Serum or Plasma [facility] Immunizations Immunization Date Immunization Notes Care Provider Fa cili 01-24-2024 SARS-COV-2 (COVID-19 ) vaccine, mRNA, spike protein, LNP, PF, saravanan-sucrose, 30 mcg/0.3 mL Marya Petznick DO Work Phone: [facility] 01-24-2024 Seasonal, trivalent, recombinant, injectable influenza vaccine, preservative free Marya Petznick DO Work Phone: [facility] 01-24-2024 influenza virus vaccine, unspecified formulation Marya Petznick DO Work Phone: [facility] 02-09-2023 influenza, injectabl e, quadrivalent, preservative free Janene Aichholz [employer] Work Phone: [facility] 02-09-2023 influenza virus vaccine, unspecified formulation Janene Aichholz [employer] Work Phone: [facility] 07-03-2022 hepatitis A and hepatitis B vaccine Janene Aichholz [employer] Work Phone: [facility] 07-03-2022 zoster vaccine recombinant Janene Aichholz [employer] Work Phone: [facility] 01-20-2022 hepatitis A and hepatitis B vaccine Janene Aichholz [employer] Work Phone: [facility] 12-19-2021 hepatitis A and hepatitis B vaccine Janene Aichholz [employer] Work Phone: [facility] 12-19-2021 influenza, injectabl e, quadrivalent, preservative free Janene Aichholz [employer] Work Phone: [facility] 12-19-2021 tetanus toxoid, redu drew diphtheria toxoid, and acellular pertussis vaccine, adsorbed Janene Aichholz [employer] Work Phone: [facility] 12-19-2021 zoster vaccine recombinant Janene Aichholz [employer] Work Phone: [facility] 05-17-2021 COVID-19 mRNA, Comirnaty (Pfizer) Janene Aichholz Work Phone: [facility] 05-16-2021 Pfizer Purple Cap SARS-CoV-2 Vaccination Janene Aichholz [employer] Work Phone: [facility] 09-06-2020 COVID-19 mRNA, Comirnaty (Pfizer) Janene Aichholz Work Phone: [facility] 08-17-2020 Pfizer Purple Cap SARS-CoV-2 Vaccination Janene Aichholz [employer] Work Phone: [facility] 08-16-2020 COVID-19 mRNA, Comirnaty (Pfizer) Janene Aichholz Work Phone: [facility] 03-10-2020 influenza, injectabl e, quadrivalent, preservative free Janene Aichholz [employer] Work Phone: [facility] 03-10-2020 pneumococcal polysaccharide vaccine, 23 valent Janene Aichholz [employer] Work Phone: [facility] 02-16-2020 influenza, seasonal, injectable Janene Aichholz [employer] Work Phone: [facility] 02-16-2020 pneumococcal polysaccharide vaccine, 23 valent Janene Aichholz [employer] Work Phone: [facility] 01-31-2019 influenza, injectabl e, quadrivalent, preservative free Janene Aichholz Work Phone: [facility] 01-31-2019 influenza, injectabl e, quadrivalent, contains preservative Christian Hamilton Other [facility] [employer] Other 03-15-2018 influenza, injectabl e, quadrivalent, preservative free Janene Aichholz Work Phone: [facility] 03-15-2018 influenza, injectabl e, quadrivalent, contains preservative Christian Hamilton Other [facility] [employer] Other 02-03-2017 influenza, injectabl e, quadrivalent, preservative free Janene Aichholz [employer] Work Phone: [facility] 04-16-2011 pneumococcal conjuga te vaccine, 13 valent Janene Aichholz [employer] Work Phone: [facility] 01-14-1997 pneumococcal polysaccharide vaccine, 23 valent Janene Aichholz [employer] Work Phone: [facility] Payers Date Payer Category Payer Private Health Insurance [id number] 2023 [facility] [id number] 2023 Unknown [id number] 2022 Self-pay [id number] 2022 Medicaid [id number] [id number] 2022 Private Health Insurance 2022 Unknown [id number] Self-pay [id number] 1970 Unknown [id number] 2.16.840.1.608939.3.579.2. 647 1970 Unknown [id number] 2.16.840.1.286371.3.579.2. 593 1970 Unknown [id number] 2.16.840.1.290719.3.579.2. 593 1970 Unknown [id number] 2.16.840.1.904985.3.579.2. 593 1970 Unknown [id number] 2.16.840.1.075862.3.579.2. 593 1970 Unknown [id number] 2.16.840.1.081686.3.579.2. 593 1970 Unknown [id number] 2.16.840.1.239286.3.579.2. 593 1970 Unknown [id number] 2.16.840.1.539032.3.579.2. 593 1970 Unknown [id number] 2.16.840.1.887556.3.579.2. 593 1970 Unknown [id number] 2.16.840.1.689032.3.579.2. 593 1970 Unknown [id number] 2.16.840.1.134474.3.579.2. 593 1970 Unknown [id number] 2.16.840.1.671350.3.579.2. 593 1970 Unknown [id number] 2.16.840.1.833197.3.579.2. 593 1970 Unknown [id number] 2.16.840.1.821214.3.579.2. 593 1970 Unknown [id number] 2.16.840.1.414750.3.579.2. 593 1970 Unknown [id number] 2.16.840.1.192637.3.579.2. 593 1970 Unknown [id number] 2.16.840.1.861247.3.579.2. 593 1970 Unknown [id number] 2.16.840.1.618663.3.579.2. 593 1970 Unknown [id number] 2.16.840.1.959417.3.579.2. 718 1970 Unknown [id number] 2.16.840.1.323401.3.579.2. 196 1970 Unknown [id number] 2.16.840.1.318093.3.579.2. 196 1970 Unknown [id number] 2.16.840.1.722690.3.579.2. 196 1970 Unknown [id number] 2.16.840.1.915075.3.579.2. 196 1970 Unknown [id number] 2.16.840.1.080888.3.579.2. 196 1970 Unknown [id number] 2.16.840.1.748242.3.579.2. 1259 1970 Unknown [id number] 2.16.840.1.406180.3.579.2. 1259 1970 Unknown [id number] 2.16.840.1.877295.3.579.2. 1259 1970 Unknown [id number] 2.16.840.1.694555.3.579.2. 1259 1970 Unknown [id number] 2.16.840.1.801192.3.579.2. 1259 1970 Unknown [id number] 2.16.840.1.360336.3.579.2. 1259 1970 Unknown [id number] 2.16.840.1.344559.3.579.2. 1259 1970 Unknown [id number] 2.16.840.1.021297.3.579.2. 1259 1970 Unknown [id number] 2.16.840.1.284192.3.579.2. 716 1959 Private Health Insurance [id number] 2.16.840.1.049242.19 1959 Unknown [id number] 2.16840.1.279665.19 Medicaid Anthem [place] Medicaid [id number] Private Health Insurance [id number] 2.16840.1.116003.19 Unknown [place] BC/BS [id number] Unknown [id number] 2.16840.1.786793.3.579.2. 531 Unknown [id number] 2.16840.1.743048.3.579.2. 531 Unknown [id number] 2.840.1.942707.3.579.2. 531 Social History Date Type Detail Facility Unknown if ever smoked [facility] Other Start: 05-02-2023 End: 11-18-2024 Sex Assigned At [facility] Start: 08-12-2021 End: 11-01-2023 Tobacco smoking status WYIS Never smoked tobacco (finding) [facility] Start: 1970 Sex Assigned At Female F [facility] Start: 09-20-2023 Tobacco use and exposure Smokeless tobacco non-user [facility] Start: 02-19-2024 End: 11-03-2024 Alcoholic beverage intake Lifetime non-drinker (finding) [facility] Start: 05-02-2023 End: 11-18-2024 History of Social function [facility] Within [...] at Not on file [facility] Sex Female (finding) [facility] How hard is it for you to pay for the very basics like food, housing, medical care, and heating Hard [facility] Do you feel stress - tense, restless, nervous, or anxious, or unable to sleep at night because your mind is troubled all the time - these days [OSQ] To some extent [facility] (I/We) worried whether (my/our) food would run out before (I/we) got money to buy more. Often true [facility] NEGATED: Highlighted rowStart: NINF History of tobacco use Passive smoker [facility] Medical Equipment Procedure Code Equipment Code Equipment Origin al Text Equipment Identifier Dates Once a day Use a s instructed [id number] Start: 07-02-2023 End: 07-01-2024 Fsbs bid [id number] Start: 11-19-2023 End: 11-03-2024 Checking bg leve ls once a day [id number] Start: 11-03-2024 Checking bg leve ls once a day [id number] Start: 11-03-2024 Goals Date Patient Goal Desired Activity /State Functional Status Date Assessment Result Facility 11-03-2024 Patient Health [facility] ionnaire 2 item (PHQ-2) [Reported] [facility] 10-02-2023 Functional status Patient at Baseline [facility] Work Phone: Mental Status Date Assessment Result Facility 10-02-2023 Cognitive function Cognitive Sta tus Patient at Baseline [facility] Work Phone: Clinical Notes 08-30-2021 to 11-03-2024 Marya Castorena DO - 11/03/2024 1:31 PM Megan Castorena DO - 11/03/2024 9:45 AM TOSHIA PABLO - 09/03/2024 9:40 AM EDNando Lew NP - 09/03/2024 9:40 AM EDTPatient [...] from the original note were not included. hSerly Humphreys is a 53 y.o. female presents [...] Muscle spasm Stage 3b chronic kidney disease (CMS-HCC) Displacement of lumbar intervertebral disc with radiculopathy [...] of 36.0 to 36.9 in adult (CMS-HCC) Type 2 diabetes mellitus with other circulatory [...] q7 days SC (7.5 MG/0.5ML SOAJ) Labs [facility] HEMOGLOBIN A1C/HEMOGLOBIN.TOTAL:MFR:PT:BLD: QN: 5.2 Outpatient prescription The [...] (BMI) of 36.0 to 36.9 in adult ([facility]-HCC) Type 2 diabetes mellitus with other [...] Blood Glucose Test) test strip Lancets 33G [facility] Follow up in about 6 months (around [...] in leg swelling. LANCETS (ONETOUCH DELICA PLUS [id number]) [facility] bid I have reviewed and reconciled the history and medication list with the patient today. documented in this encounter [facility] 10-16-2024 Note [facility] Cardiology Clinic Note Chief Complaint: Patient is here today for surgery clearance. Patient states they found a problem while doing her pre op testing. 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 Patient complains of GARNER with walking really [...] , Rfl: sacubitril-valsartan (more content not included)... [facility] 09-03-2024 History of Present illness Narrative [...] and Flonase nasal spray. Fluoxetine/Prozac 40mg Kidney cut BP med in half twice daily [...] Hospitalizations in the last year: no Specialist: Raffaele [facility] Cardiology, Dr Nathanael Rebolledo HCPOA/Living Will: no Concerns: Sore on back [...] improvement. Hypertensive end-organ damage includes kidney disease, CAD/WV and heart failure. There is no history [...] 30 mg, Daily Lancets (OneTouch Delica Plus [id number]) misc Fsbs bid metoprolol succinate XL (TOPROL-XL) [...] pain Clostridioides difficile diarrhea 07/02/2023 Coronary arteriosclerosis (CMS/[facility]) 04/30/2023 COVID-19 Degenerative disc disease, lumbar 07/02/2023 [...] herniation 07/02/2023 Microscopic hematuria 04/30/2023 Migraine headache ([facility]/HCC) 04/30/2023 Myalgia Nephrolithiasis 07/02/2023 URIEL (obstructive sleep apnea) 04/30/2023 [id number] condition Restless leg syndrome Seasonal allergies 04/30/2023 [...] Problem List Items Addressed This Visit Hypertension ([facility]) Please check blood pressure daily and record DASH diet Limit caffeine Take medication as directed Contact office if chest pain, pressure, dizziness, shortness of breath, swelling legs Recommend slow position changes Continue current meds Cont ASA, statin, b seema Relevant Medications amLODIPine (Norvasc) 10 MG tablet Type 2 diabetes mellitus with stage 3a chronic kidney disease, without long-term current use of insulin (HCC) ([facility]) Check blood sugars daily, notify if <70 [...] Pt is managed by dr castorena Hyperlipidemia ([facility]) On statin therapy as well as fenofibrate Check labs yearly and prn dose changes Encounter for screening mammogram for malignant neoplasm of breast Relevant Orders Bilateral screening mammogram Chronic diastolic heart failure ([facility]) Follows with cardiology Current meds: statin, lasix, entresto, b seema, and amlodipine Recommend daily weight, limit sodium, if weight increases by more than 3 pounds in 24 hours notify cardiology Stage 3b chronic kidney disease (HCC) ([facility]) Is established with nephrology for mgmt/monitoring Continue to keep blood pressure and DM at goal Class 2 severe obesity due to excess calories with serious comorbidity and body mass index (BMI) of 38.0 to 38.9 in adult ([facility]) Discussed with patient their BMI (actual, verses [...] up yearly and prn Associated Problem(s): Hyperlipidemia ([facility]) On statin therapy as well as fenofibrate Check labs yearly and prn dose changes Associated Problem(s): Type 2 diabetes mellitus with stage 3a chronic kidney disease, without long-term current use of insulin ([facility]) ([facility]) Check blood sugars daily, notify if <70 [...] (BMI) of 38.0 to 38.9 in adult ([facility]) Discussed with patient their BMI (actual, verses [...] Problem(s): Stage 3b chronic kidney disease (HCC) ([facility]) Is established with nephrology for mgmt/monitoring Continue to keep blood pressure and DM at goal Associated Problem(s): Chronic diastolic heart failure ([facility]/HCC) Follows with cardiology Current meds: statin, lasix, [...] current meds Cont ASA, statin, b seema documented in this encounter [facility] 09-03-2024 Instructions Janene Lew NP - 09/03/2024 9:[address] Rebolledo if we should change to Vit D2 once a week No other changes in meds or doses documented in this encounter [facility] 07-15-2024 History of Present illness Narrative Contact provider, had a fall the other day on porch, now left ankle and foot pain, would like an xray documented in this encounter [facility] 06-16-2024 History of Present illness Narrative Associated Problem(s): Type 2 diabetes mellitus with other circulatory complications ([facility]) During the appointment today all pertinent labs, [...] mg Weekly SC (7.5 MG/0.5ML SOAJ) Labs [facility] HEMOGLOBIN A1C/HEMOGLOBIN.TOTAL:MFR:PT:BLD: QN: 5.5 Outpatient prescription The [...] disease, without long-term current use of insulin ([facility]) ([facility]) Relevant Orders POCT glycosylated hemoglobin (Hb A1C) docked device (Completed) Class 2 severe obesity due to excess calories with serious comorbidity and body mass index (BMI) of 38.0 to 38.9 in adult ([facility]) - Primary Type 2 diabetes mellitus with other circulatory complications ([facility]) During the appointment today all pertinent labs, [...] morning. Do not crush or chew.. LANCETS (VaximmTOUCH DELICA PLUS [id number]) [facility] bid METOPROLOL SUCCINATE XL (TOPROL-XL) 12.5 [...] the patient today. documented in this encounter [facility] 03-06-2024 History of Present [...] problems. Hypertensive end-organ damage includes kidney disease, CAD/[place] and heart failure. Identifiable causes of hypertension [...] mononitrate ER (IMDUR) 30 mg, Daily Lancets (Simple Millsuch Delica Plus [id number]) [facility] Fsbs bid metoprolol succinate XL (TOPROL-XL) 12.5 [...] pain Clostridioides difficile diarrhea 07/02/2023 Coronary arteriosclerosis ([facility]) 04/30/2023 COVID-19 Degenerative disc disease, lumbar 07/02/2023 Depression ([facility]) 04/30/2023 Diabetes mellitus, type 2 ([facility]) 04/30/2023 Dyspnea 07/02/2023 Elevated liver enzymes 07/02/2023 Family history of cancer Fatigue GERD (gastroesophageal reflux disease) 04/30/2023 H/O bariatric surgery 07/02/2023 Headache 07/02/2023 History of fusion of cervical spine Hyperkalemia Hyperlipidemia ([facility]) 04/30/2023 Hypertension ([facility]) 04/30/2023 Hypomagnesemia 04/30/2023 Insomnia 07/02/2023 Irritable bowel syndrome with diarrhea 07/02/2023 Lower extremity edema 04/30/2023 Lumbar disc herniation 07/02/2023 Microscopic hematuria 04/30/2023 Migraine headache (CMS/HCC) 04/30/2023 Myalgia Nephrolithiasis 07/02/2023 URIEL (obstructive sleep apnea) 04/30/2023 [id number] condition Restless leg syndrome Seasonal allergies 04/30/2023 [...] mgmt for oral medications and treatment plan [facility] pain mgmt, ?? Possible spinal cord stimulator Will complete her FMLA URIEL (obstructive sleep apnea) Not using this, mask broke and they will give new mask Hypertension ([facility]) - Primary Please check blood pressure daily and record DASH diet Limit caffeine Take medication as directed Contact office if chest pain, pressure, dizziness, shortness of breath, swelling legs Recommend slow position changes Continue current meds Cont ASA, statin, b seema Relevant Orders Comprehensive metabolic panel Urinalysis with reflex microscopic (clean catch) Microalbumin / creatinine, urine ratio Coronary arteriosclerosis ([facility]) Relevant Orders CBC and differential Comprehensive metabolic panel Lipid panel RESOLVED: Swelling of both lower extremities Lower extremity edema Continues to take lasix as directed Compression stockings Limiting sodium intake Elevated legs above level of heart as much as possible Relevant Orders Comprehensive metabolic panel Type 2 diabetes mellitus with stage 3a chronic kidney disease, without long-term current use of insulin (HCC) ([facility]) Check blood sugars daily, notify if <70 [...] Relevant Orders Iron level Ferritin Bipolar disorder ([facility]) Continue with psych for management of her mental health Generalized anxiety disorder ([facility]) Continue with psych for management of symptoms and meds Stage 3b chronic kidney disease (HCC) ([facility] Is established with nephrology for mgmt/monitoring Continue [...] (BMI) of 45.0 to 49.9 in adult ([facility] [place]) Has lost approx 64 pounds since 07/07 [...] MG tablet Associated Problem(s): Generalized anxiety disorder ([facility]) Continue with psych for management of symptoms and meds Associated Problem(s): Bipolar disorder ([facility]) Continue with psych for management of her mental health Associated Problem(s): Class 3 severe obesity due to excess calories with serious comorbidity and body mass index (BMI) of 45.0 to 49.9 in adult ([facility]) Has lost approx 64 pounds since 07/07 [...] disease, without long-term current use of insulin ([facility]) ([facility]) Check blood sugars daily, notify if <70 [...] Problem(s): Stage 3b chronic kidney disease (HCC) ([facility]) Is established with nephrology for mgmt/monitoring Continue [...] mgmt for oral medications and treatment plan [facility] pain mgmt, ?? Possible spinal cord stimulator Will complete her FMLA documented in this encounter [facility] 03-06-2024 Instructions Janene Lew NP - 03/06/2024 9:20 AM EST Call CPAP company: see if they need a compliance report, they should be able to down load that for you Keep up great work with diabetes and weight loss documented in this encounter [facility] 02-19-2024 History of Present illness Narrative Associated Problem(s): Type 2 diabetes mellitus with other circulatory complications ([facility]) During the appointment today all pertinent labs, [...] multiple levels URIEL (obstructive sleep apnea) Hypertension (CMS/[facility]) Coronary arteriosclerosis (CMS/[facility]) Bradycardia GERD (gastroesophageal reflux disease) Microscopic hematuria Swelling of both lower extremities Lower extremity edema Type 2 diabetes mellitus with stage 3a chronic kidney disease, without long-term current use of insulin (HCC) (CMS/[facility]) Seasonal allergies Migraine headache (CMS/[facility]) Hypomagnesemia Hyperlipidemia (CMS/[facility]) Depression (CMS/[facility]) Encounter for screening mammogram for malignant neoplasm of breast Colon cancer screening Heel pain, bilateral Insomnia Dyspnea Irritable bowel syndrome with diarrhea H/O bariatric surgery Abdominal wall hernia Nephrolithiasis Lumbar disc herniation Degenerative disc disease, lumbar Elevated liver enzymes Bipolar disorder (CMS/HCC) Depressive disorder (CMS/HCC) Generalized anxiety disorder ([facility]/HCC) Chronic diastolic heart failure ([facility]/HCC) History of anuria E-coli UTI Muscle spasm Stage 3b chronic kidney disease (HCC) (CMS/[facility]) Displacement of lumbar intervertebral disc with radiculopathy Hypertensive nephropathy ([facility]) History of PTCA Headache, tension-type Declining functional status History of colon polyps Dental infection Antibiotic-induced yeast infection Restless leg syndrome Acute kidney injury superimposed on CKD (CMS/[facility]) Hyperkalemia Hyperuricemia Iron deficiency Vitamin B12 deficiency Vitamin D deficiency Anemia of renal disease Adenomatous polyp of cecum Diverticulosis large intestine w/o perforation or abscess w/o bleeding Class 3 severe obesity due to excess calories with serious comorbidity and body mass index (BMI) of 45.0 to 49.9 in adult ([facility]) Left lower quadrant abdominal pain Type 2 diabetes mellitus with other circulatory complications ([facility]) Social History Tobacco Use Smoking status: Never [...] disease, without long-term current use of insulin ([facility]) ([facility]) Class 3 severe obesity due to excess calories with serious comorbidity and body mass index (BMI) of 45.0 to 49.9 in adult ([facility]) Type 2 diabetes mellitus with other circulatory complications ([facility]) - Primary During the appointment today all [...] crush or chew.. LANCETS (ONETOUCH DELICA PLUS [id number]) [facility] bid METOPROLOL SUCCINATE XL (TOPROL-XL) 12.5 [...] the patient today. documented in this encounter [facility] 12-18-2023 Note [facility] Cardiology Clinic Note Chief Complaint: Pt [...] S2 present. R (more content not included)... [facility] 12-05-2023 History of Present illness Narrative [...] Daily, Do not crush or chew. Lancets (Simple Millsuch Delica Plus [id number]) [facility] Fs[facility] bid metoprolol succinate XL (TOPROL-XL) 12.5 [...] Nephrolithiasis 07/02/2023 URIEL (obstructive sleep apnea) 04/30/2023 [id number] condition Restless leg syndrome Seasonal allergies 04/30/2023 [...] Visit Body mass index (BMI) 45.0-49.9, adult ([facility]) Stage 3b chronic kidney disease (HCC) ([facility]) Restless leg syndrome Continue mirapex Morbid (severe) obesity due to excess calories ([facility]/HCC) Left lower quadrant abdominal pain - Primary [...] CBC and differential documented in this encounter [facility] 08-14-2022 Evaluation note Encounter Date [...] - G89.29) Proceed with current treatment plan [facility] Other 03-20-2023 Evaluation note* Encounter Date Diagnosis [...] negative findings were considered in medical decision-making. [facility] Other 03-11-2023 Hospital Discharge instructions Additional Instructions [...] bowel control high fever [facility]: [phone]) 700-755001-27-2023 Evaluation note* Encounter Date Diagnosis Assessment Notes [...] referral will monty sent to pain managemernt [facility] Other 01-10-2023 Evaluation note* Encounter Date Diagnosis [...] obesity (ICD-10 - E66.01) Encouraged weight loss [facility] Other 10-12-2022 Evaluation note* Encounter Date Diagnosis [...] strap. A prescription was sent to the [facility] for new supplies throughout the year, as [...] sleepiness, or poor response to treatment. . [facility] Other 08-23-2022 Evaluation note* Encounter Date Diagnosis [...] of thoracolumbar intervertebral disc (ICD-10 - M51.25) [facility] Other 07-28-2022 Evaluation note* Encounter Date Diagnosis [...] a med check and PT follow up [facility] Other 06-16-2022 Evaluation note* Encounter Date Diagnosis [...] labor Sep, Thoracic myelopathy (ICD-10 - M47.14) [facility] Other 05-17-2022 Evaluation note* Encounter Date Diagnosis [...] Overall she is making a good recovery [facility] Other [facility]pidspa [facility]No [facility] Other evaluation noteNo assessment information available [facility] Work Phone: Evaluation note* Diagnosis [...] disease reso lved Hypertensive nephropathy res olved [facility] Work Phone: Evaluation note* Diagnosis [...] D deficiency acute Hypertensive nephropathy res olved [facility] Work Phone: Evaluation note* Diagnosis Primary hypertension ([facility]/HCC)- Primary Unspecified essential hypertension Gastroesophageal reflux disease, unspecified whether esophagitis present Microscopic hematuria Lower extremity edema Edema Type 2 diabetes mellitus without complication, without long-term current use of insulin ([facility]) Stage 3 chronic kidney disease due to type 2 diabetes mellitus (HCC) ([facility]) Mixed hyperlipidemia ([facility]) Mixed hyperlipidemia Migraine without aura and without status migrainosus, not intractable ([facility]) Encounter for screening mammogram for malignant neoplasm of breast Colon cancer screening Special screening for malignant neoplasms, colon BMI 50.0-59.9, adult ([facility]) Heel pain, bilateral Type 2 diabetes mellitus without complication, without long-term current use of insulin ([facility])- Primary History of anuria Stage 3 chronic kidney disease due to type 2 diabetes mellitus (HCC) ([facility]) BMI 50.0-59.9, adult ([facility]) URIEL (obstructive sleep apnea) Obstructive sleep apnea (adult) (pediatric) Primary hypertension ([facility]) Unspecified essential hypertension Chronic diastolic heart failure ([facility]) Chronic diastolic heart failure Depression, unspecified depression type ([facility]) Type 2 diabetes mellitus without complication, without long-term current use of insulin ([facility])- Primary Stage 3 chronic kidney disease due to type 2 diabetes mellitus (HCC) ([facility]) BMI 50.0-59.9, adult ([facility]) Lower extremity edema Edema Dental infection- Primary Type 2 diabetes mellitus with stage 3 chronic kidney disease, without long-term current use of insulin, unspecified whether stage 3a or 3b CKD (HCC) ([facility])- Primary Bipolar affective disorder, remission status unspecified ([facility]) Restless leg syndrome Restless legs syndrome (RLS) URIEL (obstructive sleep apnea) Obstructive sleep apnea (adult) (pediatric) Primary hypertension ([facility]/HCC) Unspecified essential hypertension Chronic diastolic heart failure ([facility]) Chronic diastolic heart failure Stage 3 chronic kidney disease due to type 2 diabetes mellitus (HCC) ([facility]) Seasonal allergies Allergic rhinitis, cause unspecified BMI 50.0-59.9, adult ([facility]) Type 2 diabetes mellitus with stage 4 chronic kidney disease, without long-term current use of insulin ([facility])- Primary Type 2 diabetes mellitus without complication, without long-term current use of insulin ([facility]) Left lower quadrant abdominal pain- Primary Morbid (severe) obesity due to excess calories ([facility]) Body mass index (BMI) 45.0-49.9, adult ([facility]) Restless leg syndrome Restless legs syndrome (RLS) Stage 3b chronic kidney disease (HCC) ([facility]) Type 2 diabetes mellitus with other circulatory complications ([facility])- Primary Type 2 diabetes mellitus with stage 4 chronic kidney disease, without long-term current use of insulin ([facility]) Type 2 diabetes mellitus with stage 3a chronic kidney disease, without long-term current use of insulin (HCC) ([facility]) Class 3 severe obesity due to excess calories with serious comorbidity and body mass index (BMI) of 45.0 to 49.9 in adult ([facility]) documented in this encounter [facility] HealthcareEvaluation note* Diagnosis Primary hypertension ([facility])- Primary Unspecified essential hypertension Gastroesophageal reflux disease, unspecified whether esophagitis present Microscopic hematuria Lower extremity edema Edema Type 2 diabetes mellitus without complication, without long-term current use of insulin ([facility]) Stage 3 chronic kidney disease due to type 2 diabetes mellitus (HCC) ([facility]) Mixed hyperlipidemia ([facility]) Mixed hyperlipidemia Migraine without aura and without status migrainosus, not intractable ([facility]) Encounter for screening mammogram for malignant neoplasm of breast Colon cancer screening Special screening for malignant neoplasms, colon BMI 50.0-59.9, adult ([facility]) Heel pain, bilateral Type 2 diabetes mellitus without complication, without long-term current use of insulin ([facility])- Primary History of anuria Stage 3 chronic kidney disease due to type 2 diabetes mellitus (HCC) ([facility]) BMI 50.0-59.9, adult ([facility]) URIEL (obstructive sleep apnea) Obstructive sleep apnea (adult) (pediatric) Primary hypertension ([facility]) Unspecified essential hypertension Chronic diastolic heart failure ([facility]) Chronic diastolic heart failure Depression, unspecified depression type ([facility]) Type 2 diabetes mellitus without complication, without long-term current use of insulin ([facility])- Primary Stage 3 chronic kidney disease due to type 2 diabetes mellitus (HCC) ([facility]) BMI 50.0-59.9, adult ([facility]) Lower extremity edema Edema Dental infection- Primary Type 2 diabetes mellitus with stage 3 chronic kidney disease, without long-term current use of insulin, unspecified whether stage 3a or 3b CKD (HCC) ([facility])- Primary Bipolar affective disorder, remission status unspecified ([facility]) Restless leg syndrome Restless legs syndrome (RLS) URIEL (obstructive sleep apnea) Obstructive sleep apnea (adult) (pediatric) Primary hypertension ([facility]) Unspecified essential hypertension Chronic diastolic heart failure ([facility]) Chronic diastolic heart failure Stage 3 chronic kidney disease due to type 2 diabetes mellitus (HCC) ([facility]) Seasonal allergies Allergic rhinitis, cause unspecified BMI 50.0-59.9, adult ([facility]) Type 2 diabetes mellitus with stage 4 chronic kidney disease, without long-term current use of insulin ([facility])- Primary Type 2 diabetes mellitus without complication, without long-term current use of insulin ([facility]) Left lower quadrant abdominal pain- Primary Morbid (severe) obesity due to excess calories ([facility]) Body mass index (BMI) 45.0-49.9, adult ([facility]) Restless leg syndrome Restless legs syndrome (RLS) Stage 3b chronic kidney disease (HCC) ([facility]) Type 2 diabetes mellitus with other circulatory complications ([facility])- Primary Type 2 diabetes mellitus with stage 4 chronic kidney disease, without long-term current use of insulin ([facility]) Type 2 diabetes mellitus with stage 3a chronic kidney disease, without long-term current use of insulin (HCC) ([facility]) Class 3 severe obesity due to excess calories with serious comorbidity and body mass index (BMI) of 45.0 to 49.9 in adult ([facility]) Muscle spasm Spasm of muscle documented in this encounter [facility] HealthcareEvaluation note* Diagnosis Primary hypertension ([facility])- Primary Unspecified essential hypertension Gastroesophageal reflux disease, unspecified whether esophagitis present Microscopic hematuria Lower extremity edema Edema Type 2 diabetes mellitus without complication, without long-term current use of insulin ([facility]) Stage 3 chronic kidney disease due to type 2 diabetes mellitus (HCC) ([facility]) Mixed hyperlipidemia ([facility]) Mixed hyperlipidemia Migraine without aura and without status migrainosus, not intractable ([facility]) Encounter for screening mammogram for malignant neoplasm of breast Colon cancer screening Special screening for malignant neoplasms, colon BMI 50.0-59.9, adult ([facility]) Heel pain, bilateral Type 2 diabetes mellitus without complication, without long-term current use of insulin ([facility])- Primary History of anuria Stage 3 chronic kidney disease due to type 2 diabetes mellitus (HCC) ([facility]) BMI 50.0-59.9, adult ([facility]) URIEL (obstructive sleep apnea) Obstructive sleep apnea (adult) (pediatric) Primary hypertension ([facility]) Unspecified essential hypertension Chronic diastolic heart failure ([facility]) Chronic diastolic heart failure Depression, unspecified depression type ([facility]) Type 2 diabetes mellitus without complication, without long-term current use of insulin ([facility])- Primary Stage 3 chronic kidney disease due to type 2 diabetes mellitus (HCC) ([facility]) BMI 50.0-59.9, adult ([facility]) Lower extremity edema Edema Dental infection- Primary Type 2 diabetes mellitus with stage 3 chronic kidney disease, without long-term current use of insulin, unspecified whether stage 3a or 3b CKD (HCC) ([facility])- Primary Bipolar affective disorder, remission status unspecified ([facility]) Restless leg syndrome Restless legs syndrome (RLS) URIEL (obstructive sleep apnea) Obstructive sleep apnea (adult) (pediatric) Primary hypertension ([facility]) Unspecified essential hypertension Chronic diastolic heart failure ([facility]) Chronic diastolic heart failure Stage 3 chronic kidney disease due to type 2 diabetes mellitus (HCC) ([facility]) Seasonal allergies Allergic rhinitis, cause unspecified BMI 50.0-59.9, adult ([facility]) Type 2 diabetes mellitus with stage 4 chronic kidney disease, without long-term current use of insulin ([facility])- Primary Type 2 diabetes mellitus without complication, without long-term current use of insulin ([facility]) Left lower quadrant abdominal pain- Primary Morbid (severe) obesity due to excess calories ([facility]) Body mass index (BMI) 45.0-49.9, adult ([facility]) Restless leg syndrome Restless legs syndrome (RLS) Stage 3b chronic kidney disease (HCC) ([facility]) Type 2 diabetes mellitus with other circulatory complications ([facility])- Primary Type 2 diabetes mellitus with stage 4 chronic kidney disease, without long-term current use of insulin ([facility]) Type 2 diabetes mellitus with stage 3a chronic kidney disease, without long-term current use of insulin (HCC) ([facility]) Class 3 severe obesity due to excess calories with serious comorbidity and body mass index (BMI) of 45.0 to 49.9 in adult ([facility]) Primary hypertension ([facility])- Primary Unspecified essential hypertension Spinal stenosis of lumbar region at multiple levels Restless leg syndrome Restless legs syndrome (RLS) URIEL (obstructive sleep apnea) Obstructive sleep apnea (adult) (pediatric) Coronary arteriosclerosis ([facility]) Coronary atherosclerosis of unspecified type of vessel, elim ira or graft Stage 3b chronic kidney disease (HCC) ([facility]) Swelling of both lower extremities Lower extremity edema Edema Type 2 diabetes mellitus with stage 3a chronic kidney disease, without long-term current use of insulin (HCC) ([facility]) Class 3 severe obesity due to excess calories with serious comorbidity and body mass index (BMI) of 45.0 to 49.9 in adult ([facility]) Bipolar affective disorder, remission status unspecified ([facility] [facility]) Generalized anxiety disorder ([facility]) Generalized anxiety disorder Vitamin D deficiency Vitamin B12 deficiency Other B-complex deficiencies H/O bariatric surgery Acute non-recurrent pansinusitis documented in this encounter [facility] HealthcareEvaluation note* Diagnosis Primary hypertension ([facility])- Primary Unspecified essential hypertension Gastroesophageal reflux disease, unspecified whether esophagitis present Microscopic hematuria Lower extremity edema Edema Type 2 diabetes mellitus without complication, without long-term current use of insulin ([facility]) Stage 3 chronic kidney disease due to type 2 diabetes mellitus (HCC) ([facility]) Mixed hyperlipidemia ([facility]) Mixed hyperlipidemia Migraine without aura and without status migrainosus, not intractable ([facility]) Encounter for screening mammogram for malignant neoplasm of breast Colon cancer screening Special screening for malignant neoplasms, colon BMI 50.0-59.9, adult ([facility]) Heel pain, bilateral Type 2 diabetes mellitus without complication, without long-term current use of insulin ([facility])- Primary History of anuria Stage 3 chronic kidney disease due to type 2 diabetes mellitus (HCC) ([facility]) BMI 50.0-59.9, adult ([facility]) URIEL (obstructive sleep apnea) Obstructive sleep apnea (adult) (pediatric) Primary hypertension ([facility]) Unspecified essential hypertension Chronic diastolic heart failure ([facility]) Chronic diastolic heart failure Depression, unspecified depression type ([facility]) Type 2 diabetes mellitus without complication, without long-term current use of insulin ([facility])- Primary Stage 3 chronic kidney disease due to type 2 diabetes mellitus (HCC) ([facility]) BMI 50.0-59.9, adult ([facility]) Lower extremity edema Edema Dental infection- Primary Type 2 diabetes mellitus with stage 3 chronic kidney disease, without long-term current use of insulin, unspecified whether stage 3a or 3b CKD (HCC) ([facility])- Primary Bipolar affective disorder, remission status unspecified [place] [place] Restless leg syndrome Restless legs syndrome (RLS) URIEL (obstructive sleep apnea) Obstructive sleep apnea (adult) (pediatric) Primary hypertension ([facility]) Unspecified essential hypertension Chronic diastolic heart failure ([facility]) Chronic diastolic heart failure Stage 3 chronic kidney disease due to type 2 diabetes mellitus ([facility]) [place] [place] Seasonal allergies Allergic rhinitis, cause unspecified BMI 50.0-59.9, adult ([facility]) Type 2 diabetes mellitus with stage 4 chronic kidney disease, without long-term current use of insulin ([facility])- Primary Type 2 diabetes mellitus without complication, without long-term current use of insulin ([facility]) Left lower quadrant abdominal pain- Primary Morbid (severe) obesity due to excess calories ([facility]) Body mass index (BMI) 45.0-49.9, adult ([facility]) Restless leg syndrome Restless legs syndrome (RLS) Stage 3b chronic kidney disease (HCC) ([facility]) Type 2 diabetes mellitus with other circulatory complications ([facility])- Primary Type 2 diabetes mellitus with stage 4 chronic kidney disease, without long-term current use of insulin [place] [place] Type 2 diabetes mellitus with stage 3a chronic kidney disease, without long-term current use of insulin ([facility]) [place] Class 3 severe obesity due to excess calories with serious comorbidity and body mass index (BMI) of 45.0 to 49.9 in adult ([facility] Primary hypertension ([facility])- Primary Unspecified essential hypertension Spinal stenosis of lumbar region at multiple levels Restless leg syndrome Restless legs syndrome (RLS) URIEL (obstructive sleep apnea) Obstructive sleep apnea (adult) (pediatric) Coronary arteriosclerosis ([facility]) Coronary atherosclerosis of unspecified type of vessel, elim ira or graft Stage 3b chronic kidney disease (HCC) ([facility]) Swelling of both lower extremities Lower extremity edema Edema Type 2 diabetes mellitus with stage 3a chronic kidney disease, without long-term current use of insulin (HCC) ([facility]) Class 3 severe obesity due to excess calories with serious comorbidity and body mass index (BMI) of 45.0 to 49.9 in adult ([facility]) Bipolar affective disorder, remission status unspecified ([facility]) Generalized anxiety disorder ([facility]) Generalized anxiety disorder Vitamin D deficiency Vitamin B12 deficiency Other B-complex deficiencies H/O bariatric surgery Acute non-recurrent pansinusitis Restless leg syndrome Restless legs syndrome (RLS) documented in this encounter [facility] HealthcareEvaluation note* Diagnosis Left lower quadrant abdominal pain- Primary Morbid (severe) obesity due to excess calories ([facility]) Body mass index (BMI) 45.0-49.9, adult [place] [place] Restless leg syndrome Restless legs syndrome (RLS) Stage 3b chronic kidney disease (HCC) ([facility]) documented in this encounter [facility]* [...] disease, without long-term current use of insulin ([facility])- Primary documented in this encounter [facility]Evaluation [facility]* Diagnosis Primary hypertension ([facility]) Unspecified essential hypertension documented in this encounter [facility]* Diagnosis Primary hypertension ([facility])- Primary Unspecified essential hypertension Gastroesophageal reflux disease, unspecified whether esophagitis present Microscopic hematuria Lower extremity edema Edema Type 2 diabetes mellitus without complication, without long-term current use of insulin ([facility]) Stage 3 chronic kidney disease due to type 2 diabetes mellitus (HCC) ([facility]) Mixed hyperlipidemia ([facility]) Mixed hyperlipidemia Migraine without aura and without status migrainosus, not intractable [place] [place] Encounter for screening mammogram for malignant neoplasm of breast Colon cancer screening Special screening for malignant neoplasms, colon BMI 50.0-59.9, adult ([facility]) Heel pain, bilateral Type 2 diabetes mellitus without complication, without long-term current use of insulin [place] [place] Primary History of anuria Stage 3 chronic kidney disease due to type 2 diabetes mellitus (HCC) ([facility]) BMI 50.0-59.9, adult ([facility]) URIEL (obstructive sleep apnea) Obstructive sleep apnea (adult) (pediatric) Primary hypertension ([facility]) Unspecified essential hypertension Chronic diastolic heart failure ([facility]) Chronic diastolic heart failure Depression, unspecified depression type ([facility]) Type 2 diabetes mellitus without complication, without long-term current use of insulin ([facility])- Primary Stage 3 chronic kidney disease due to type 2 diabetes mellitus (HCC) ([facility]) BMI 50.0-59.9, adult ([facility]) Lower extremity edema Edema Dental infection- Primary Type 2 diabetes mellitus with stage 3 chronic kidney disease, without long-term current use of insulin, unspecified whether stage 3a or 3b CKD (HCC) ([facility])- Primary Bipolar affective disorder, remission status unspecified ([facility]) Restless leg syndrome Restless legs syndrome (RLS) URIEL (obstructive sleep apnea) Obstructive sleep apnea (adult) (pediatric) Primary hypertension ([facility]) Unspecified essential hypertension Chronic diastolic heart failure ([facility]) Chronic diastolic heart failure Stage 3 chronic kidney disease due to type 2 diabetes mellitus (HCC) ([facility]) Seasonal allergies Allergic rhinitis, cause unspecified BMI 50.0-59.9, adult ([facility]) Type 2 diabetes mellitus with stage 4 chronic kidney disease, without long-term current use of insulin ([facility])- Primary Type 2 diabetes mellitus without complication, without long-term current use of insulin ([facility]) Left lower quadrant abdominal pain- Primary Morbid (severe) obesity due to excess calories ([facility]) Body mass index (BMI) 45.0-49.9, adult ([facility]) Restless leg syndrome Restless legs syndrome (RLS) Stage 3b chronic kidney disease (HCC) ([facility]) Type 2 diabetes mellitus with other circulatory complications [place] [place] Primary Type 2 diabetes mellitus with stage 4 chronic kidney disease, without long-term current use of insulin ([facility]) Type 2 diabetes mellitus with stage 3a chronic kidney disease, without long-term current use of insulin (HCC) ([facility]) Class 3 severe obesity due to excess calories with serious comorbidity and body mass index (BMI) of 45.0 to 49.9 in adult ([facility] Primary hypertension ([facility])- Primary Unspecified essential hypertension Spinal stenosis of lumbar region at multiple levels Restless leg syndrome Restless legs syndrome (RLS) URIEL (obstructive sleep apnea) Obstructive sleep apnea (adult) (pediatric) Coronary arteriosclerosis ([facility]) Coronary atherosclerosis of unspecified type of vessel, elim ira or graft Stage 3b chronic kidney disease (HCC) ([facility]) Swelling of both lower extremities Lower extremity edema Edema Type 2 diabetes mellitus with stage 3a chronic kidney disease, without long-term current use of insulin ([facility]) ([facility]) Class 3 severe obesity due to excess calories with serious comorbidity and body mass index (BMI) of 45.0 to 49.9 in adult ([facility]) Bipolar affective disorder, remission status unspecified ([facility]) Generalized anxiety disorder ([facility]) Generalized anxiety disorder Vitamin D deficiency Vitamin B12 deficiency Other B-complex deficiencies H/O bariatric surgery Acute non-recurrent pansinusitis Muscle spasm Spasm of muscle documented in this encounter [facility] HealthcareEvaluation note* Diagnosis Primary hypertension ([facility])- Primary Unspecified essential hypertension Gastroesophageal reflux disease, unspecified whether esophagitis present Microscopic hematuria Lower extremity edema Edema Type 2 diabetes mellitus without complication, without long-term current use of insulin ([facility]) Stage 3 chronic kidney disease due to type 2 diabetes mellitus (HCC) ([facility]) Mixed hyperlipidemia ([facility]) Mixed hyperlipidemia Migraine without aura and without status migrainosus, not intractable ([facility]) Encounter for screening mammogram for malignant neoplasm of breast Colon cancer screening Special screening for malignant neoplasms, colon BMI 50.0-59.9, adult ([facility]) Heel pain, bilateral Type 2 diabetes mellitus without complication, without long-term current use of insulin ([facility])- Primary History of anuria Stage 3 chronic kidney disease due to type 2 diabetes mellitus (HCC) ([facility]) BMI 50.0-59.9, adult ([facility]) URIEL (obstructive sleep apnea) Obstructive sleep apnea (adult) (pediatric) Primary hypertension ([facility]) Unspecified essential hypertension Chronic diastolic heart failure ([facility]) Chronic diastolic heart failure Depression, unspecified depression type ([facility]) Type 2 diabetes mellitus without complication, without long-term current use of insulin ([facility])- Primary Stage 3 chronic kidney disease due to type 2 diabetes mellitus (HCC) ([facility]) BMI 50.0-59.9, adult ([facility]) Lower extremity edema Edema Dental infection- Primary Type 2 diabetes mellitus with stage 3 chronic kidney disease, without long-term current use of insulin, unspecified whether stage 3a or 3b CKD (HCC) ([facility])- Primary Bipolar affective disorder, remission status unspecified ([facility]) Restless leg syndrome Restless legs syndrome (RLS) URIEL (obstructive sleep apnea) Obstructive sleep apnea (adult) (pediatric) Primary hypertension ([facility]) Unspecified essential hypertension Chronic diastolic heart failure ([facility]) Chronic diastolic heart failure Stage 3 chronic kidney disease due to type 2 diabetes mellitus ([facility]) ([facility]) Seasonal allergies Allergic rhinitis, cause unspecified BMI 50.0-59.9, adult ([facility]) Type 2 diabetes mellitus with stage 4 chronic kidney disease, without long-term current use of insulin ([facility])- Primary Type 2 diabetes mellitus without complication, without long-term current use of insulin ([facility]) Left lower quadrant abdominal pain- Primary Morbid (severe) obesity due to excess calories ([facility]) Body mass index (BMI) 45.0-49.9, adult ([facility]) Restless leg syndrome Restless legs syndrome (RLS) Stage 3b chronic kidney disease (HCC) ([facility]) Type 2 diabetes mellitus with other circulatory complications ([facility])- Primary Type 2 diabetes mellitus with stage 4 chronic kidney disease, without long-term current use of insulin ([facility]) Type 2 diabetes mellitus with stage 3a chronic kidney disease, without long-term current use of insulin ([facility]) [place] Class 3 severe obesity due to excess calories with serious comorbidity and body mass index (BMI) of 45.0 to 49.9 in adult ([facility]) Primary hypertension ([facility])- Primary Unspecified essential hypertension Spinal stenosis of lumbar region at multiple levels Restless leg syndrome Restless legs syndrome (RLS) URIEL (obstructive sleep apnea) Obstructive sleep apnea (adult) (pediatric) Coronary arteriosclerosis ([facility]) Coronary atherosclerosis of unspecified type of vessel, elim ira or graft Stage 3b chronic kidney disease (HCC) ([facility]) Swelling of both lower extremities Lower extremity edema Edema Type 2 diabetes mellitus with stage 3a chronic kidney disease, without long-term current use of insulin (HCC) ([facility]) Class 3 severe obesity due to excess calories with serious comorbidity and body mass index (BMI) of 45.0 to 49.9 in adult ([facility]) Bipolar affective disorder, remission status unspecified ([facility]) Generalized anxiety disorder ([facility]) Generalized anxiety disorder Vitamin D deficiency Vitamin B12 deficiency Other B-complex deficiencies H/O bariatric surgery Acute non-recurrent pansinusitis Class 2 severe obesity due to excess calories with serious comorbidity and body mass index (BMI) of 38.0 to 38.9 in adult ([facility])- Primary Type 2 diabetes mellitus with other circulatory complications ([facility]) Type 2 diabetes mellitus with stage 3a chronic kidney disease, without long-term current use of insulin (HCC) ([facility]) documented in this encounter [facility] HealthcareEvaluation note* Diagnosis Primary hypertension ([facility])- Primary Unspecified essential hypertension Gastroesophageal reflux disease, unspecified whether esophagitis present Microscopic hematuria Lower extremity edema Edema Type 2 diabetes mellitus without complication, without long-term current use of insulin Stage 3 chronic kidney disease due to type 2 diabetes mellitus (HCC) ([facility]) Mixed hyperlipidemia ([facility]) Mixed hyperlipidemia Migraine without aura and without status migrainosus, not intractable ([facility]) Encounter for screening mammogram for malignant neoplasm of breast Colon cancer screening Special screening for malignant neoplasms, colon BMI 50.0-59.9, adult ([facility]) Heel pain, bilateral Type 2 diabetes mellitus without complication, without long-term current use of insulin- Primary History of anuria Stage 3 chronic kidney disease due to type 2 diabetes mellitus ([facility]) ([facility]) BMI 50.0-59.9, adult ([facility]) URIEL (obstructive sleep apnea) Obstructive sleep apnea (adult) (pediatric) Primary hypertension ([facility]) Unspecified essential hypertension Chronic diastolic heart failure ([facility]) Chronic diastolic heart failure Depression, unspecified depression type ([facility]) Type 2 diabetes mellitus without complication, without long-term current use of insulin- Primary Stage 3 chronic kidney disease due to type 2 diabetes mellitus (HCC) ([facility]) BMI 50.0-59.9, adult ([facility]) Lower extremity edema Edema Dental infection- Primary Type 2 diabetes mellitus with stage 3 chronic kidney disease, without long-term current use of insulin, unspecified whether stage 3a or 3b CKD (HCC) ([facility])- Primary Bipolar affective disorder, remission status unspecified ([facility]) Restless leg syndrome Restless legs syndrome (RLS) URIEL (obstructive sleep apnea) Obstructive sleep apnea (adult) (pediatric) Primary hypertension ([facility]) [facility]specified essential hypertension Chronic diastolic heart failure ([facility]) Chronic diastolic heart failure Stage 3 chronic kidney disease due to type 2 diabetes mellitus ([facility]) [place] [place]al allergies Allergic rhinitis, cause unspecified BMI 50.0-59.9, adult ([facility]) Type 2 diabetes mellitus with stage 4 chronic kidney disease, without long-term current use of insulin ([facility])- Primary Type 2 diabetes mellitus without complication, without long-term current use of insulin Left lower quadrant abdominal pain- Primary Morbid (severe) obesity due to excess calories ([facility]) Body mass index (BMI) 45.0-49.9, adult [place] [place] Restless leg syndrome Restless legs syndrome (RLS) Stage 3b chronic kidney disease (HCC) [place] [place] Type 2 diabetes mellitus with other circulatory complications- Primary Type 2 diabetes mellitus with stage 4 chronic kidney disease, without long-term current use of insulin [place] [place] Type 2 diabetes mellitus with stage 3a chronic kidney disease, without long-term current use of insulin ([facility]) [place] [place] Class 3 severe obesity due to excess calories with serious comorbidity and body mass index (BMI) of 45.0 to 49.9 in adult Primary hypertension ([facility])- Primary Unspecified essential hypertension Spinal stenosis of lumbar region at multiple levels Restless leg syndrome Restless legs syndrome (RLS) URIEL (obstructive sleep apnea) Obstructive sleep apnea (adult) (pediatric) Coronary arteriosclerosis ([facility]) Coronary atherosclerosis of unspecified type of vessel, elim ira or graft Stage 3b chronic kidney disease (HCC) [place] [place] Swelling of both lower extremities Lower extremity edema Edema Type 2 diabetes mellitus with stage 3a chronic kidney disease, without long-term current use of insulin ([facility]) [place] [place] Class 3 severe obesity due to excess calories with serious comorbidity and body mass index (BMI) of 45.0 to 49.9 in adult Bipolar affective disorder, remission status unspecified [place] [place] Generalized anxiety disorder [place] [place] Generalized anxiety disorder Vitamin D deficiency Vitamin B12 deficiency Other B-complex deficiencies H/O bariatric surgery Acute non-recurrent pansinusitis Class 2 severe obesity due to excess calories with serious comorbidity and body mass index (BMI) of 38.0 to 38.9 in adult [place] [place] Primary Type 2 diabetes mellitus with other circulatory complications Type 2 diabetes mellitus with stage 3a chronic kidney disease, without long-term current use of insulin ([facility]) ([facility]) Acute foot pain, left- Primary Acute left ankle pain documented in this encounter [facility] HealthcareEvaluation note* Diagnosis Primary hypertension ([facility])- Primary Unspecified essential hypertension Gastroesophageal reflux disease, unspecified whether esophagitis present Microscopic hematuria Lower extremity edema Edema Type 2 diabetes mellitus without complication, without long-term current use of insulin Stage 3 chronic kidney disease due to type 2 diabetes mellitus (HCC) ([facility]) Mixed hyperlipidemia ([facility]) Mixed hyperlipidemia Migraine without aura and without status migrainosus, not intractable ([facility]) Encounter for screening mammogram for malignant neoplasm of breast Colon cancer screening Special screening for malignant neoplasms, colon BMI 50.0-59.9, adult ([facility]) Heel pain, bilateral Type 2 diabetes mellitus without complication, without long-term current use of insulin- Primary History of anuria Stage 3 chronic kidney disease due to type 2 diabetes mellitus ([facility]) ([facility]) BMI 50.0-59.9, adult ([facility]) URIEL (obstructive sleep apnea) Obstructive sleep apnea (adult) (pediatric) Primary hypertension ([facility]) Unspecified essential hypertension Chronic diastolic heart failure ([facility]) Chronic diastolic heart failure Depression, unspecified depression type [place] [place] Type 2 diabetes mellitus without complication, without long-term current use of insulin- Primary Stage 3 chronic kidney disease due to type 2 diabetes mellitus (HCC) [place] [place] BMI 50.0-59.9, adult ([facility]) Lower extremity edema Edema Dental infection- Primary Type 2 diabetes mellitus with stage 3 chronic kidney disease, without long-term current use of insulin, unspecified whether stage 3a or 3b CKD ([facility]) ([facility])- Primary Bipolar affective disorder, remission status unspecified ([facility]) Restless leg syndrome Restless legs syndrome (RLS) URIEL (obstructive sleep apnea) Obstructive sleep apnea (adult) (pediatric) Primary hypertension ([facility]) Unspecified essential hypertension Chronic diastolic heart failure ([facility]) Chronic diastolic heart failure Stage 3 chronic kidney disease due to type 2 diabetes mellitus (HCC) ([facility]) Seasonal allergies Allergic rhinitis, cause unspecified BMI 50.0-59.9, adult ([facility]) Type 2 diabetes mellitus with stage 4 chronic kidney disease, without long-term current use of insulin ([facility])- Primary Type 2 diabetes mellitus without complication, without long-term current use of insulin Left lower quadrant abdominal pain- Primary Morbid (severe) obesity due to excess calories ([facility]) Body mass index (BMI) 45.0-49.9, adult ([facility]) Restless leg syndrome Restless legs syndrome (RLS) Stage 3b chronic kidney disease (HCC) ([facility]) Type 2 diabetes mellitus with other circulatory complications- Primary Type 2 diabetes mellitus with stage 4 chronic kidney disease, without long-term current use of insulin ([facility]) Type 2 diabetes mellitus with stage 3a chronic kidney disease, without long-term current use of insulin ([facility]) ([facility]) Class 3 severe obesity due to excess calories with serious comorbidity and body mass index (BMI) of 45.0 to 49.9 in adult Primary hypertension ([facility])- Primary Unspecified essential hypertension Spinal stenosis of lumbar region at multiple levels Restless leg syndrome Restless legs syndrome (RLS) URIEL (obstructive sleep apnea) Obstructive sleep apnea (adult) (pediatric) Coronary arteriosclerosis ([facility]) Coronary atherosclerosis of unspecified type of vessel, elim ira or graft Stage 3b chronic kidney disease (HCC) ([facility]) Swelling of both lower extremities Lower extremity edema Edema Type 2 diabetes mellitus with stage 3a chronic kidney disease, without long-term current use of insulin ([facility]) ([facility]) Class 3 severe obesity due to excess calories with serious comorbidity and body mass index (BMI) of 45.0 to 49.9 in adult Bipolar affective disorder, remission status unspecified ([facility]) Generalized anxiety disorder ([facility]) Generalized anxiety disorder Vitamin D deficiency Vitamin B12 deficiency Other B-complex deficiencies H/O bariatric surgery Acute non-recurrent pansinusitis Class 2 severe obesity due to excess calories with serious comorbidity and body mass index (BMI) of 38.0 to 38.9 in adult ([facility])- Primary Type 2 diabetes mellitus with other circulatory complications Type 2 diabetes mellitus with stage 3a chronic kidney disease, without long-term current use of insulin (HCC) ([facility]) Restless leg syndrome Restless legs syndrome (RLS) documented in this encounter [facility] HealthcareEvaluation note* Diagnosis Primary hypertension ([facility])- Primary Unspecified essential hypertension Gastroesophageal reflux disease, unspecified whether esophagitis present Microscopic hematuria Lower extremity edema Edema Type 2 diabetes mellitus without complication, without long-term current use of insulin Stage 3 chronic kidney disease due to type 2 diabetes mellitus (HCC) [place] [place] Mixed hyperlipidemia [place] [place] Mixed hyperlipidemia Migraine without aura and without status migrainosus, not intractable [place] [place] Encounter for screening mammogram for malignant neoplasm of breast Colon cancer screening Special screening for malignant neoplasms, colon BMI 50.0-59.9, adult [place] [place] Heel pain, bilateral Type 2 diabetes mellitus without complication, without long-term current use of insulin- Primary History of anuria Stage 3 chronic kidney disease due to type 2 diabetes mellitus (HCC) [place] [place] BMI 50.0-59.9, adult [place] [place] URIEL (obstructive sleep apnea) Obstructive sleep apnea (adult) (pediatric) Primary hypertension ([facility]) Unspecified essential hypertension Chronic diastolic heart failure [place] [place] Chronic diastolic heart failure Depression, unspecified depression type [place] [place] Type 2 diabetes mellitus without complication, without long-term current use of insulin- Primary Stage 3 chronic kidney disease due to type 2 diabetes mellitus (HCC) [place] [place] BMI 50.0-59.9, adult [place] [place] Lower extremity edema Edema Dental infection- Primary Type 2 diabetes mellitus with stage 3 chronic kidney disease, without long-term current use of insulin, unspecified whether stage 3a or 3b CKD (HCC) [place] [place] Primary Bipolar affective disorder, remission status unspecified [place] [place] Restless leg syndrome Restless legs syndrome (RLS) URIEL (obstructive sleep apnea) Obstructive sleep apnea (adult) (pediatric) Primary hypertension ([facility]) Unspecified essential hypertension Chronic diastolic heart failure ([facility]) Chronic diastolic heart failure Stage 3 chronic kidney disease due to type 2 diabetes mellitus (HCC) [place] [place] Seasonal allergies Allergic rhinitis, cause unspecified BMI 50.0-59.9, adult [place] [place] Type 2 diabetes mellitus with stage 4 chronic kidney disease, without long-term current use of insulin [place] [place] Primary Type 2 diabetes mellitus without complication, without long-term current use of insulin Left lower quadrant abdominal pain- Primary Morbid (severe) obesity due to excess calories [place] [place] Body mass index (BMI) 45.0-49.9, adult (CMS/HCC) Restless leg syndrome Restless legs syndrome (RLS) Stage 3b chronic kidney disease (HCC) ([facility]/HCC) Type 2 diabetes mellitus with other circulatory complications- Primary Type 2 diabetes mellitus with stage 4 chronic kidney disease, without long-term current use of insulin (CMS/HCC) Type 2 diabetes mellitus with stage 3a chronic kidney disease, without long-term current use of insulin (HCC) ([facility]/HCC) Class 3 severe obesity due to excess calories with serious comorbidity and body mass index (BMI) of 45.0 to 49.9 in adult Primary hypertension ([facility]/HCC)- Primary Unspecified essential hypertension Spinal stenosis of lumbar region at multiple levels Restless leg syndrome Restless legs syndrome (RLS) URIEL (obstructive sleep apnea) Obstructive sleep apnea (adult) (pediatric) Coronary arteriosclerosis ([facility]) Coronary atherosclerosis of unspecified type of vessel, elim ira or graft Stage 3b chronic kidney disease (HCC) ([facility]/HCC) Swelling of both lower extremities Lower extremity edema Edema Type 2 diabetes mellitus with stage 3a chronic kidney disease, without long-term current use of insulin (HCC) ([facility]) Class 3 severe obesity due to excess calories with serious comorbidity and body mass index (BMI) of 45.0 to 49.9 in adult Bipolar affective disorder, remission status unspecified ([facility]) Generalized anxiety disorder ([facility]) Generalized anxiety disorder Vitamin D deficiency Vitamin B12 deficiency Other B-complex deficiencies H/O bariatric surgery Acute non-recurrent pansinusitis Class 2 severe obesity due to excess calories with serious comorbidity and body mass index (BMI) of 38.0 to 38.9 in adult ([facility])- Primary Type 2 diabetes mellitus with other circulatory complications Type 2 diabetes mellitus with stage 3a chronic kidney disease, without long-term current use of insulin (HCC) ([facility]) Primary hypertension ([facility] Unspecified essential hypertension documented in this encounter [facility] HealthcareEvaluation note* Diagnosis Primary hypertension ([facility])- Primary Unspecified essential hypertension Gastroesophageal reflux disease, unspecified whether esophagitis present Microscopic hematuria Lower extremity edema Edema Type 2 diabetes mellitus without complication, without long-term current use of insulin Stage 3 chronic kidney disease due to type 2 diabetes mellitus (HCC) ([facility]) Mixed hyperlipidemia ([facility]) Mixed hyperlipidemia Migraine without aura and without status migrainosus, not intractable ([facility]) Encounter for screening mammogram for malignant neoplasm of breast Colon cancer screening Special screening for malignant neoplasms, colon BMI 50.0-59.9, adult ([facility]) Heel pain, bilateral Type 2 diabetes mellitus without complication, without long-term current use of insulin- Primary History of anuria Stage 3 chronic kidney disease due to type 2 diabetes mellitus (HCC) ([facility]) BMI 50.0-59.9, adult ([facility]) URIEL (obstructive sleep apnea) Obstructive sleep apnea (adult) (pediatric) Primary hypertension ([facility]) Unspecified essential hypertension Chronic diastolic heart failure ([facility]) Chronic diastolic heart failure Depression, unspecified depression type ([facility]) Type 2 diabetes mellitus without complication, without long-term current use of insulin- Primary Stage 3 chronic kidney disease due to type 2 diabetes mellitus (HCC) ([facility]) BMI 50.0-59.9, adult ([facility]) Lower extremity edema Edema Dental infection- Primary Type 2 diabetes mellitus with stage 3 chronic kidney disease, without long-term current use of insulin, unspecified whether stage 3a or 3b CKD (HCC) [place] [place] Primary Bipolar affective disorder, remission status unspecified [place] [place] Restless leg syndrome Restless legs syndrome (RLS) URIEL (obstructive sleep apnea) Obstructive sleep apnea (adult) (pediatric) Primary hypertension ([facility]) Unspecified essential hypertension Chronic diastolic heart failure ([facility]) Chronic diastolic heart failure Stage 3 chronic kidney disease due to type 2 diabetes mellitus (HCC) ([facility]) Seasonal allergies Allergic rhinitis, cause unspecified BMI 50.0-59.9, adult ([facility]) Type 2 diabetes mellitus with stage 4 chronic kidney disease, without long-term current use of insulin ([facility])- Primary Type 2 diabetes mellitus without complication, without long-term current use of insulin Left lower quadrant abdominal pain- Primary Morbid (severe) obesity due to excess calories ([facility]) Body mass index (BMI) 45.0-49.9, adult ([facility]) Restless leg syndrome Restless legs syndrome (RLS) Stage 3b chronic kidney disease (HCC) [place] [place] Type 2 diabetes mellitus with other circulatory complications- Primary Type 2 diabetes mellitus with stage 4 chronic kidney disease, without long-term current use of insulin ([facility]) Type 2 diabetes mellitus with stage 3a chronic kidney disease, without long-term current use of insulin (HCC) [place] [place] Class 3 severe obesity due to excess calories with serious comorbidity and body mass index (BMI) of 45.0 to 49.9 in adult Primary hypertension ([facility])- Primary Unspecified essential hypertension Spinal stenosis of lumbar region at multiple levels Restless leg syndrome Restless legs syndrome (RLS) URIEL (obstructive sleep apnea) Obstructive sleep apnea (adult) (pediatric) Coronary arteriosclerosis ([facility]) Coronary atherosclerosis of unspecified type of vessel, elim ira or graft Stage 3b chronic kidney disease (HCC) ([facility]) Swelling of both lower extremities Lower extremity edema Edema Type 2 diabetes mellitus with stage 3a chronic kidney disease, without long-term current use of insulin (HCC) ([facility]) Class 3 severe obesity due to excess calories with serious comorbidity and body mass index (BMI) of 45.0 to 49.9 in adult Bipolar affective disorder, remission status unspecified ([facility]) Generalized anxiety disorder ([facility]) Generalized anxiety disorder Vitamin D deficiency Vitamin B12 deficiency Other B-complex deficiencies H/O bariatric surgery Acute non-recurrent pansinusitis Class 2 severe obesity due to excess calories with serious comorbidity and body mass index (BMI) of 38.0 to 38.9 in adult ([facility])- Primary Type 2 diabetes mellitus with other circulatory complications Type 2 diabetes mellitus with stage 3a chronic kidney disease, without long-term current use of insulin ([facility]) ([facility]) Muscle spasm Spasm of muscle documented in this encounter [facility] HealthcareEvaluation note* Diagnosis Primary hypertension ([facility])- Primary Unspecified essential hypertension Gastroesophageal reflux disease, unspecified whether esophagitis present Microscopic hematuria Lower extremity edema Edema Type 2 diabetes mellitus without complication, without long-term current use of insulin Stage 3 chronic kidney disease due to type 2 diabetes mellitus (HCC) ([facility]) Mixed hyperlipidemia ([facility]) Mixed hyperlipidemia Migraine without aura and without status migrainosus, not intractable ([facility]) Encounter for screening mammogram for malignant neoplasm of breast Colon cancer screening Special screening for malignant neoplasms, colon BMI 50.0-59.9, adult ([facility]) Heel pain, bilateral Type 2 diabetes mellitus without complication, without long-term current use of insulin- Primary History of anuria Stage 3 chronic kidney disease due to type 2 diabetes mellitus (HCC) ([facility]) BMI 50.0-59.9, adult ([facility]) URIEL (obstructive sleep apnea) Obstructive sleep apnea (adult) (pediatric) Primary hypertension ([facility]) Unspecified essential hypertension Chronic diastolic heart failure ([facility]) Chronic diastolic heart failure Depression, unspecified depression type ([facility] [facility]) Type 2 diabetes mellitus without complication, without long-term current use of insulin- Primary Stage 3 chronic kidney disease due to type 2 diabetes mellitus (HCC) ([facility]) BMI 50.0-59.9, adult ([facility]) Lower extremity edema Edema Type 2 diabetes mellitus with stage 3 chronic kidney disease, without long-term current use of insulin, unspecified whether stage 3a or 3b CKD (HCC) ([facility])- Primary Bipolar affective disorder, remission status unspecified ([facility]) Restless leg syndrome Restless legs syndrome (RLS) URIEL (obstructive sleep apnea) Obstructive sleep apnea (adult) (pediatric) Primary hypertension ([facility]) Unspecified essential hypertension Chronic diastolic heart failure ([facility]) Chronic diastolic heart failure Stage 3 chronic kidney disease due to type 2 diabetes mellitus ([facility]) [place] [place] Seasonal allergies Allergic rhinitis, cause unspecified BMI 50.0-59.9, [place] [place] Type 2 diabetes mellitus with stage 4 chronic kidney disease, without long-term current use of insulin [place] Primary Type 2 diabetes mellitus without complication, without long-term current use of insulin Left lower quadrant abdominal pain- Primary Morbid (severe) obesity due to excess calories ([facility]) Body mass index (BMI) 45.0-49.9, adult [place] [place] Restless leg syndrome Restless legs syndrome (RLS) Stage 3b chronic kidney disease (HCC) [place] [place] Type 2 diabetes mellitus with other circulatory complications- Primary Type 2 diabetes mellitus with stage 4 chronic kidney disease, without long-term current use of insulin [place] [place] Type 2 diabetes mellitus with stage 3a chronic kidney disease, without long-term current use of insulin ([facility]) [place] [place] Class 3 severe obesity due to excess calories with serious comorbidity and body mass index (BMI) of 45.0 to 49.9 in adult Primary hypertension ([facility])- Primary Unspecified essential hypertension Spinal stenosis of lumbar region at multiple levels Restless leg syndrome Restless legs syndrome (RLS) URIEL (obstructive sleep apnea) Obstructive sleep apnea (adult) (pediatric) Coronary arteriosclerosis ([facility]) Coronary atherosclerosis of unspecified type of vessel, elim ira or graft Stage 3b chronic kidney disease (HCC) ([facility]) Swelling of both lower extremities Lower extremity edema Edema Type 2 diabetes mellitus with stage 3a chronic kidney disease, without long-term current use of insulin (HCC) ([facility]) Class 3 severe obesity due to excess calories with serious comorbidity and body mass index (BMI) of 45.0 to 49.9 in adult Bipolar affective disorder, remission status unspecified ([facility]) Generalized anxiety disorder ([facility]) Generalized anxiety disorder Vitamin D deficiency Vitamin B12 deficiency Other B-complex deficiencies H/O bariatric surgery Acute non-recurrent pansinusitis Class 2 severe obesity due to excess calories with serious comorbidity and body mass index (BMI) of 38.0 to 38.9 in adult ([facility])- Primary Type 2 diabetes mellitus with other circulatory complications Type 2 diabetes mellitus with stage 3a chronic kidney disease, without long-term current use of insulin (HCC) ([facility]) Encounter for wellness examination in adult- Primary Encounter for screening mammogram for malignant neoplasm of breast Primary hypertension ([facility]) Unspecified essential hypertension Chronic diastolic heart failure ([facility]) Chronic diastolic heart failure Stage 3b chronic kidney disease (HCC) ([facility]) Class 2 severe obesity due to excess calories with serious comorbidity and body mass index (BMI) of 38.0 to 38.9 in adult ([facility]) Type 2 diabetes mellitus with stage 3a chronic kidney disease, without long-term current use of insulin (HCC) ([facility] Mixed hyperlipidemia ([facility]) Mixed hyperlipidemia documented in this encounter [facility] HealthcareEvaluation note* Diagnosis Primary hypertension ([facility])- Primary Unspecified essential hypertension Gastroesophageal reflux disease, unspecified whether esophagitis present Microscopic hematuria Lower extremity edema Edema Type 2 diabetes mellitus without complication, without long-term current use of insulin Stage 3 chronic kidney disease due to type 2 diabetes mellitus (HCC) ([facility]) Mixed hyperlipidemia ([facility]) Mixed hyperlipidemia Migraine without aura and without status migrainosus, not intractable ([facility]) Encounter for screening mammogram for malignant neoplasm of breast Colon cancer screening Special screening for malignant neoplasms, colon BMI 50.0-59.9, adult ([facility]) Heel pain, bilateral Type 2 diabetes mellitus without complication, without long-term current use of insulin- Primary History of anuria Stage 3 chronic kidney disease due to type 2 diabetes mellitus (HCC) [place] [place] BMI 50.0-59.9, [place] [place] URIEL (obstructive sleep apnea) Obstructive sleep apnea (adult) (pediatric) Primary hypertension [place] [place] Unspecified essential hypertension Chronic diastolic heart failure [place] [place] Chronic diastolic heart failure Depression, unspecified depression type [place] [place] Type 2 diabetes mellitus without complication, without long-term current use of insulin- Primary Stage 3 chronic kidney disease due to type 2 diabetes mellitus ([facility]) [place] BMI 50.0-59.9, adult [place] [place] Lower extremity edema Edema Type 2 diabetes mellitus with stage 3 chronic kidney disease, without long-term current use of insulin, unspecified whether stage 3a or 3b CKD ([facility]) [place] [place] Primary Bipolar affective disorder, remission status unspecified [place] [place] Restless leg syndrome Restless legs syndrome (RLS) URIEL (obstructive sleep apnea) Obstructive sleep apnea (adult) (pediatric) Primary hypertension [place] [place] Unspecified essential hypertension Chronic diastolic heart failure [place] [place] Chronic diastolic heart failure Stage 3 chronic kidney disease due to type 2 diabetes mellitus ([facility]) [place] Seasonal allergies Allergic rhinitis, cause unspecified BMI 50.0-59.9, adult [place] [place] Type 2 diabetes mellitus with stage 4 chronic kidney disease, without long-term current use of insulin [place] [place] Primary Type 2 diabetes mellitus without complication, without long-term current use of insulin Left lower quadrant abdominal pain- Primary Morbid (severe) obesity due to excess calories [place] [place] Body mass index (BMI) 45.0-49.9, adult [place] [place] Restless leg syndrome Restless legs syndrome (RLS) Stage 3b chronic kidney disease (HCC) [place] [place] Type 2 diabetes mellitus with other circulatory complications- Primary Type 2 diabetes mellitus with stage 4 chronic kidney disease, without long-term current use of insulin [place] [place] Type 2 diabetes mellitus with stage 3a chronic kidney disease, without long-term current use of insulin ([facility]) [place] Class 3 severe obesity due to excess calories with serious comorbidity and body mass index (BMI) of 45.0 to 49.9 in adult Primary hypertension ([facility])- Primary Unspecified essential hypertension Spinal stenosis of lumbar region at multiple levels Restless leg syndrome Restless legs syndrome (RLS) URIEL (obstructive sleep apnea) Obstructive sleep apnea (adult) (pediatric) Coronary arteriosclerosis ([facility]) Coronary atherosclerosis of unspecified type of vessel, elim ira or graft Stage 3b chronic kidney disease (HCC) ([facility]CC) Swelling of both lower extremities Lower extremity edema Edema Type 2 diabetes mellitus with stage 3a chronic kidney disease, without long-term current use of insulin (HCC) ([facility]) Class 3 severe obesity due to excess calories with serious comorbidity and body mass index (BMI) of 45.0 to 49.9 in adult Bipolar affective disorder, remission status unspecified ([facility]) Generalized anxiety disorder ([facility]) Generalized anxiety disorder Vitamin D deficiency Vitamin B12 deficiency Other B-complex deficiencies H/O bariatric surgery Acute non-recurrent pansinusitis Class 2 severe obesity due to excess calories with serious comorbidity and body mass index (BMI) of 38.0 to 38.9 in adult ([facility])- Primary Type 2 diabetes mellitus with other circulatory complications Type 2 diabetes mellitus with stage 3a chronic kidney disease, without long-term current use of insulin (HCC) ([facility]) Encounter for wellness examination in adult- Primary Encounter for screening mammogram for malignant neoplasm of breast Primary hypertension ([facility]) Unspecified essential hypertension Chronic diastolic heart failure ([facility]) Chronic diastolic heart failure Stage 3b chronic kidney disease (HCC) ([facility]) Class 2 severe obesity due to excess calories with serious comorbidity and body mass index (BMI) of 38.0 to 38.9 in adult ([facility]) Type 2 diabetes mellitus with stage 3a chronic kidney disease, without long-term current use of insulin (HCC) ([facility]) Mixed hyperlipidemia ([facility]) Mixed hyperlipidemia Restless leg syndrome Restless legs syndrome (RLS) documented in this encounter [facility] HealthcareEvaluation note* Diagnosis Primary hypertension- Primary Unspecified essential hypertension Gastroesophageal reflux disease, unspecified whether esophagitis present Microscopic hematuria Lower extremity edema Edema Type 2 diabetes mellitus without complication, without long-term current use of insulin (HCC) Stage 3 chronic kidney disease due to type 2 diabetes mellitus (HCC) Mixed hyperlipidemia Mixed hyperlipidemia Migraine without aura and without status migrainosus, not intractable Encounter for screening mammogram for malignant neoplasm of breast Colon cancer screening Special screening for malignant neoplasms, colon BMI 50.0-59.9, adult ([facility]) Heel pain, bilateral Type 2 diabetes mellitus without complication, without long-term current use of insulin ([facility])- Primary History of anuria Stage 3 chronic kidney disease due to type 2 diabetes mellitus ([facility]) BMI 50.0-59.9, adult ([facility] [place]) URIEL (obstructive sleep apnea) Obstructive sleep apnea (adult) (pediatric) Primary hypertension Unspecified essential hypertension Chronic diastolic heart failure ([facility]) Chronic diastolic heart failure Depression, unspecified depression type Type 2 diabetes mellitus without complication, without long-term current use of insulin ([facility])- Primary Stage 3 chronic kidney disease due to type 2 diabetes mellitus ([facility]) BMI 50.0-59.9, adult ([facility] [place]) Lower extremity edema Edema Type 2 diabetes mellitus with stage 3 chronic kidney disease, without long-term current use of insulin, unspecified whether stage 3a or 3b CKD ([facility])- Primary Bipolar affective disorder, remission status unspecified ([facility]) Restless leg syndrome Restless legs syndrome (RLS) URIEL (obstructive sleep apnea) Obstructive sleep apnea (adult) (pediatric) Primary hypertension Unspecified essential hypertension Chronic diastolic heart failure ([facility]) Chronic diastolic heart failure Stage 3 chronic kidney disease due to type 2 diabetes mellitus ([facility]) Seasonal allergies Allergic rhinitis, cause unspecified BMI 50.0-59.9, adult ([facility] [place]) Type 2 diabetes mellitus with stage 4 chronic kidney disease, without long-term current use of insulin ([facility])- Primary Type 2 diabetes mellitus without complication, without long-term current use of insulin ([facility]) Left lower quadrant abdominal pain- Primary Morbid (severe) obesity due to excess calories ([facility] [place]) Body mass index (BMI) 45.0-49.9, adult ([facility] [place]) Restless leg syndrome Restless legs syndrome (RLS) Stage 3b chronic kidney disease ([facility] [place]) Type 2 diabetes mellitus with other circulatory complications ([facility])- Primary Type 2 diabetes mellitus with stage 4 chronic kidney disease, without long-term current use of insulin ([facility]) Type 2 diabetes mellitus with stage 3a chronic kidney disease, without long-term current use of insulin ([facility]) Class 3 severe obesity due to excess calories with serious comorbidity and body mass index (BMI) of 45.0 to 49.9 in adult ([facility] [place]) Primary hypertension- Primary Unspecified essential hypertension Spinal stenosis of lumbar region at multiple levels Restless leg syndrome Restless legs syndrome (RLS) URIEL (obstructive sleep apnea) Obstructive sleep apnea (adult) (pediatric) Coronary arteriosclerosis Coronary atherosclerosis of unspecified type of vessel, elim ira or graft Stage 3b chronic kidney disease ([facility] [place]) Swelling of both lower extremities Lower extremity edema Edema Type 2 diabetes mellitus with stage 3a chronic kidney disease, without long-term current use of insulin ([facility]) Class 3 severe obesity due to excess calories with serious comorbidity and body mass index (BMI) of 45.0 to 49.9 in adult ([facility] [place]) Bipolar affective disorder, remission status unspecified ([facility]) Generalized anxiety disorder Generalized anxiety disorder Vitamin D deficiency Vitamin B12 deficiency Other B-complex deficiencies H/O bariatric surgery Acute non-recurrent pansinusitis Class 2 severe obesity due to excess calories with serious comorbidity and body mass index (BMI) of 38.0 to 38.9 in adult ([facility] [place])- Primary Type 2 diabetes mellitus with other circulatory complications ([facility]) Type 2 diabetes mellitus with stage 3a chronic kidney disease, without long-term current use of insulin ([facility]) Encounter for wellness examination in adult- Primary Encounter for screening mammogram for malignant neoplasm of breast Primary hypertension Unspecified essential hypertension Chronic diastolic heart failure (HCC) Chronic diastolic heart failure Stage 3b chronic kidney disease ([facility] [place]) Class 2 severe obesity due to excess calories with serious comorbidity and body mass index (BMI) of 38.0 to 38.9 in adult ([facility] [place]) Type 2 diabetes mellitus with stage 3a chronic kidney disease, without long-term current use of insulin ([facility]) Mixed hyperlipidemia Mixed hyperlipidemia Type 2 diabetes mellitus with other circulatory complications ([facility])- Primary Type 2 diabetes mellitus with stage 3a chronic kidney disease, without long-term current use of insulin ([facility]) Type 2 diabetes mellitus with stage 4 chronic kidney disease, without long-term current use of insulin ([facility]) Type 2 diabetes mellitus without complication, without long-term current use of insulin ([facility]) Class 2 severe obesity due to excess calories with serious comorbidity and body mass index (BMI) of 36.0 to 36.9 in adult ([facility] [place]) documented in this encounter [facility] HealthcareEvaluation note* Diagnosis Primary hypertension- Primary Unspecified essential hypertension Gastroesophageal reflux disease, unspecified whether esophagitis present Microscopic hematuria Lower extremity edema Edema Type 2 diabetes mellitus without complication, without long-term current use of insulin ([facility]) Stage 3 chronic kidney disease due to type 2 diabetes mellitus (HCC) Mixed hyperlipidemia Mixed hyperlipidemia Migraine without aura and without status migrainosus, not intractable Encounter for screening mammogram for malignant neoplasm of breast Colon cancer screening Special screening for malignant neoplasms, colon BMI 50.0-59.9, adult ([facility] [place]) Heel pain, bilateral Type 2 diabetes mellitus without complication, without long-term current use of insulin ([facility])- Primary History of anuria Stage 3 chronic kidney disease due to type 2 diabetes mellitus ([facility]) BMI 50.0-59.9, adult ([facility] [place]) URIEL (obstructive sleep apnea) Obstructive sleep apnea (adult) (pediatric) Primary hypertension Unspecified essential hypertension Chronic diastolic heart failure ([facility]) Chronic diastolic heart failure Depression, unspecified depression type Type 2 diabetes mellitus without complication, without long-term current use of insulin ([facility])- Primary Stage 3 chronic kidney disease due to type 2 diabetes mellitus ([facility]) BMI 50.0-59.9, adult ([facility] [place]) Lower extremity edema Edema Type 2 diabetes mellitus with stage 3 chronic kidney disease, without long-term current use of insulin, unspecified whether stage 3a or 3b CKD ([facility])- Primary Bipolar affective disorder, remission status unspecified ([facility]) Restless leg syndrome Restless legs syndrome (RLS) URIEL (obstructive sleep apnea) Obstructive sleep apnea (adult) (pediatric) Primary hypertension Unspecified essential hypertension Chronic diastolic heart failure ([facility]) Chronic diastolic heart failure Stage 3 chronic kidney disease due to type 2 diabetes mellitus ([facility]) Seasonal allergies Allergic rhinitis, cause unspecified BMI 50.0-59.9, adult ([facility] [place]) Type 2 diabetes mellitus with stage 4 chronic kidney disease, without long-term current use of insulin ([facility])- Primary Type 2 diabetes mellitus without complication, without long-term current use of insulin ([facility]) Left lower quadrant abdominal pain- Primary Morbid (severe) obesity due to excess calories ([facility] [place]) Body mass index (BMI) 45.0-49.9, adult ([facility] [place]) Restless leg syndrome Restless legs syndrome (RLS) Stage 3b chronic kidney disease ([facility] [place]) Type 2 diabetes mellitus with other circulatory complications ([facility])- Primary Type 2 diabetes mellitus with stage 4 chronic kidney disease, without long-term current use of insulin ([facility]) Type 2 diabetes mellitus with stage 3a chronic kidney disease, without long-term current use of insulin ([facility]) Class 3 severe obesity due to excess calories with serious comorbidity and body mass index (BMI) of 45.0 to 49.9 in adult ([facility] [place]) Primary hypertension- Primary Unspecified essential hypertension Spinal stenosis of lumbar region at multiple levels Restless leg syndrome Restless legs syndrome (RLS) URIEL (obstructive sleep apnea) Obstructive sleep apnea (adult) (pediatric) Coronary arteriosclerosis Coronary atherosclerosis of unspecified type of vessel, elim ira or graft Stage 3b chronic kidney disease ([facility] [place]) Swelling of both lower extremities Lower extremity edema Edema Type 2 diabetes mellitus with stage 3a chronic kidney disease, without long-term current use of insulin ([facility]) Class 3 severe obesity due to excess calories with serious comorbidity and body mass index (BMI) of 45.0 to 49.9 in adult ([facility] [place]) Bipolar affective disorder, remission status unspecified ([facility]) Generalized anxiety disorder Generalized anxiety disorder Vitamin D deficiency Vitamin B12 deficiency Other B-complex deficiencies H/O bariatric surgery Acute non-recurrent pansinusitis Class 2 severe obesity due to excess calories with serious comorbidity and body mass index (BMI) of 38.0 to 38.9 in adult ([facility] [place])- Primary Type 2 diabetes mellitus with other circulatory complications ([facility]) Type 2 diabetes mellitus with stage 3a chronic kidney disease, without long-term current use of insulin ([facility]) Encounter for wellness examination in adult- Primary Encounter for screening mammogram for malignant neoplasm of breast Primary hypertension Unspecified essential hypertension Chronic diastolic heart failure (HCC) Chronic diastolic heart failure Stage 3b chronic kidney disease ([facility]) Class 2 severe obesity due to excess calories with serious comorbidity and body mass index (BMI) of 38.0 to 38.9 in adult ([facility]) Type 2 diabetes mellitus with stage 3a chronic kidney disease, without long-term current use of insulin ([facility]) Mixed hyperlipidemia Mixed hyperlipidemia Type 2 diabetes mellitus with other circulatory complications ([facility])- Primary Type 2 diabetes mellitus with stage 3a chronic kidney disease, without long-term current use of insulin ([facility]) Type 2 diabetes mellitus with stage 4 chronic kidney disease, without long-term current use of insulin ([facility]) Type 2 diabetes mellitus without complication, without long-term current use of insulin ([facility]) Class 2 severe obesity due to excess calories with serious comorbidity and body mass index (BMI) of 36.0 to 36.9 in adult ([facility]) Muscle spasm Spasm of muscle documented in this encounter [facility]* Diagnosis Primary hypertension- Primary Unspecified essential hypertension Gastroesophageal reflux disease, unspecified whether esophagitis present Microscopic hematuria Lower extremity edema Edema Type 2 diabetes mellitus without complication, without long-term current use of insulin ([facility]) Stage 3 chronic kidney disease due to type 2 diabetes mellitus ([facility]) Mixed hyperlipidemia Mixed hyperlipidemia Migraine without aura and without status migrainosus, not intractable Encounter for screening mammogram for malignant neoplasm of breast Colon cancer screening Special screening for malignant neoplasms, colon BMI 50.0-59.9, adult ([facility]) Heel pain, bilateral Type 2 diabetes mellitus without complication, without long-term current use of insulin ([facility])- Primary History of anuria Stage 3 chronic kidney disease due to type 2 diabetes mellitus ([facility]) BMI 50.0-59.9, adult ([facility]) URIEL (obstructive sleep apnea) Obstructive sleep apnea (adult) (pediatric) Primary hypertension Unspecified essential hypertension Chronic diastolic heart failure ([facility]) Chronic diastolic heart failure Depression, unspecified depression type Type 2 diabetes mellitus without complication, without long-term current use of insulin ([facility])- Primary Stage 3 chronic kidney disease due to type 2 diabetes mellitus ([facility]) BMI 50.0-59.9, adult ([facility]) Lower extremity edema Edema Type 2 diabetes mellitus with stage 3 chronic kidney disease, without long-term current use of insulin, unspecified whether stage 3a or 3b CKD ([facility])- Primary Bipolar affective disorder, remission status unspecified ([facility]) Restless leg syndrome Restless legs syndrome (RLS) URIEL (obstructive sleep apnea) Obstructive sleep apnea (adult) (pediatric) Primary hypertension Unspecified essential hypertension Chronic diastolic heart failure ([facility]) Chronic diastolic heart failure Stage 3 chronic kidney disease due to type 2 diabetes mellitus ([facility]) Seasonal allergies Allergic rhinitis, cause unspecified BMI 50.0-59.9, adult ([facility]) Type 2 diabetes mellitus with stage 4 chronic kidney disease, without long-term current use of insulin ([facility])- Primary Type 2 diabetes mellitus without complication, without long-term current use of insulin ([facility]) Left lower quadrant abdominal pain- Primary Morbid (severe) obesity due to excess calories ([facility]) Body mass index (BMI) 45.0-49.9, adult ([facility]) Restless leg syndrome Restless legs syndrome (RLS) Stage 3b chronic kidney disease ([facility]) Type 2 diabetes mellitus with other circulatory complications ([facility])- Primary Type 2 diabetes mellitus with stage 4 chronic kidney disease, without long-term current use of insulin ([facility]) Type 2 diabetes mellitus with stage 3a chronic kidney disease, without long-term current use of insulin ([facility]) Class 3 severe obesity due to excess calories with serious comorbidity and body mass index (BMI) of 45.0 to 49.9 in adult ([facility]) Primary hypertension- Primary Unspecified essential hypertension Spinal stenosis of lumbar region at multiple levels Restless leg syndrome Restless legs syndrome (RLS) URIEL (obstructive sleep apnea) Obstructive sleep apnea (adult) (pediatric) Coronary arteriosclerosis Coronary atherosclerosis of unspecified type of vessel, elim ira or graft Stage 3b chronic kidney disease ([facility]) Swelling of both lower extremities Lower extremity edema Edema Type 2 diabetes mellitus with stage 3a chronic kidney disease, without long-term current use of insulin ([facility]) Class 3 severe obesity due to excess calories with serious comorbidity and body mass index (BMI) of 45.0 to 49.9 in adult ([facility]) Bipolar affective disorder, remission status unspecified ([facility]) Generalized anxiety disorder Generalized anxiety disorder Vitamin D deficiency Vitamin B12 deficiency Other B-complex deficiencies H/O bariatric surgery Acute non-recurrent pansinusitis Class 2 severe obesity due to excess calories with serious comorbidity and body mass index (BMI) of 38.0 to 38.9 in adult ([facility])- Primary Type 2 diabetes mellitus with other circulatory complications ([facility]) Type 2 diabetes mellitus with stage 3a chronic kidney disease, without long-term current use of insulin ([facility]) Encounter for wellness examination in adult- Primary Encounter for screening mammogram for malignant neoplasm of breast Primary hypertension Unspecified essential hypertension Chronic diastolic heart failure (HCC) Chronic diastolic heart failure Stage 3b chronic kidney disease ([facility]) Class 2 severe obesity due to excess calories with serious comorbidity and body mass index (BMI) of 38.0 to 38.9 in adult ([facility]) Type 2 diabetes mellitus with stage 3a chronic kidney disease, without long-term current use of insulin ([facility]) Mixed hyperlipidemia Mixed hyperlipidemia Type 2 diabetes mellitus with other circulatory complications ([facility])- Primary Type 2 diabetes mellitus with stage 3a chronic kidney disease, without long-term current use of insulin ([facility]) Type 2 diabetes mellitus with stage 4 chronic kidney disease, without long-term current use of insulin ([facility]) Type 2 diabetes mellitus without complication, without long-term current use of insulin ([facility]) Class 2 severe obesity due to excess calories with serious comorbidity and body mass index (BMI) of 36.0 to 36.9 in adult ([facility]) Restless leg syndrome Restless legs syndrome (RLS) documented in this encounter [facility] HealthcareEvaluation note* Diagnosis Onset Date Resolution Status Admit Date [...] Hypertensive nephropathy resolved November 26, 2024 9:38am [facility] Work Phone: History general Narrative - [...] History Tonsilectomy Teenager Hospitalization History See Above [facility] Other [facility] general Narrative - Reported* Type Description Date [...] BACK SURGERY 07/2021 Hospitalization History See Above [facility] Other Reason for referral (narrative)[facility] for [facility] Summary Purpose Family History No Family History [...] 4:43pm Hospital Course Note MR#: [id number] I [facility] Pt. Name: Sherly Humphreys Admitted: 08/23/2018 Discharged: [...] Diagnosis 1 Thoracic myelopathy (M47.14) Referral Organization [facility] urosurgery Referring Provider First Name Christian Referring Provider Last Name Alfonso Referring Provider Specialty Neurologica l Surgery Referred Organization [facility] Pain Managemen t Referred Provider Ivan Sams Referred Address [address] [address] ,[place], [place],[address] Referred Provider Specialty Pain Medicin e Referral [...] Low back pain (M54.5 ) Referral Organization [facility] urosurgery Referring Provider First Name Christian [...] Vitamin D deficiency Hypertensive nephropathy Chief Complaint Admit Date November 06, 2024 9:16 am E87.5 E79.0 E83.42 E53.8 E55.9 E61.1 Nov 2:12pm Chief Complaint Admit Date November 06, 2024 9:16 am E87.5 E79.0 E83.42 E53.8 E55.9 E61.1 Nov 2:12pm Renal 6 month follow up November [...] 9 :38am Hypertensive nephropathy November 26 9:38am Additional Source Comments INFORMATION SOURCE (unrecogn ized section and content) DATE CREATED AUTHOR 11/22/2018 [facility] DATE CREATED AUTHOR AUTHOR'S ORGANIZ ATION 09/22/2022 [facility] DATE CREATED AUTHOR AUTHOR'S ORGANIZ ATION 05/26/2023 [facility] DATE CREATED AUTHOR AUTHOR'S ORGANIZ ATION 12/14/2023 [facility] DATE CREATED AUTHOR AUTHOR'S ORGANIZ ATION 11/04/2024 [facility] EPIC DATE CREATED AUTHOR AUTHOR'S ORGANIZ ATION 11/26/2024 [facility] DATE CREATED AUTHOR AUTHOR'S ORGANIZ ATION 12/02/2024 [facility] DATE CREATED AUTHOR AUTHOR'S ORGANIZ ATION 12/03/2024 [facility] DEPARTMENT REASON FOR VISIT (unrecogniz ed section and [...] Attending Provider Active Start: November 06, 2024 Team Status: Inactive Member Role Status Dates Janene Lew Primary Care Provider Active Sta rt: November 18, 2024 End: November 18, 2024 Halle Mac MD Attending Provider Active Star t: November 18, 2024 End: November 18, 2024 Team Status: Inactive Member Role Status Dates [...] Member Role Status Dates [facility] Active Christian Hamilton MD Attending Provider Active Team Status: Inactive Member Role Status Dates [facility] Provider Active Emma Bolivar NP Attending Provider Active Team Status: Inactive Member Role Status Dates [facility] Provider Active Merissa Hernandez [facility] Emergency Provider Active Team Status: Inactive Member Role Status Dates [facility] Primary Care Provider Active Sta rt: August 15, 2023 End: August 15, 2023 Halle Mac MD Attending Provider Active Star t: August 15, 2023 End: August 15, 2023 Team Status: Active Member Role Status Dates [facility] Care Provider Active Sta rt: September 03, 2023 Valdemar Alonso MD Attending Provider Active Start: September 03, 2023 Team Status: Inactive Member Role Status Dates [facility] Primary Care Provider Active Sta rt: October 01, 2023 End: October 02, 2023 Alma Deng MD Admit Provider Active Start: October 01, 2023 End: October 02, 2023 Des Benitez MD Other Provider Active Start: 2023 End: October 02, 2023 Fernando Rosenberg MD Attending Provider Active Start: October 01, 2023 End: October 02, 2023 Team Status: Active Member Role Status Dates [facility] Primary Care Provider Active Sta rt: October 01, 2023 Alma Deng MD Admit Provider Active Start: October 01, 2023 Des Benitez MD Attending Provider, Other Provider Active Start: October 01, 2023 Fernando Rosenberg MD Other Provider Active Start: October 01, 2023 Team Status: Inactive Member Role Status Dates [facility] Primary Care Provider Active Sta rt: [...] November 01, 2023 End: November 01, 2023 Shipping Weigher Relationship Specialty Start Date End Date Markel Haq MD [address] [place] [address] PCP - General Family Medicine 05/03/23 Janene Lew NP [address] [place] [address] PCP - [facility] 09/15/23 Shipping Weigher Relationship Specialty Start Date End Date Markel Haq MD [address] [place] [address] PCP - General Family Medicine 05/03/23 Janene Lew NP [address] [place] [address] PCP - [facility] [employer] 09/15/23 Shipping Weigher Relationship Specialty Start Date End Date Markel Haq MD [address] [place] [address] PCP - General Family Medicine 05/03/23 Janene Lew NP [address] [place] [address] PCP - [facility] [employer] 09/15/23 Shipping Weigher Relationship Specialty Start Date End Date Markel Haq MD [address] [place] [address] PCP - General Family Medicine 05/03/23 Janene Lew NP [address] [place] [address] PCP - [facility] [employer] 09/15/23 Shipping Weigher Relationship Specialty Start Date End Date Markel Haq MD [address] [place] [address] PCP - General Family Medicine 05/03/23 Janene Lew NP [address] [place] [address] PCP - [facility] [employer] 09/15/23 Shipping Weigher Relationship Specialty Start Date End Date Markel Haq MD [address] [place] [address] PCP - General Family Medicine 05/03/23 Janene Lew NP [address] [place] [address] PCP - [facility] [employer] 09/15/23 Shipping Weigher Relationship Specialty Start Date End Date Markel Haq MD [address] [place] [address] PCP - General Family Medicine 05/03/23 Janene Lew NP [address] [place] [address] PCP - [employer] 09/15/23 Shipping Weigher Relationship Specialty Start Date End Date Markel Haq MD [address] [place] [address] PCP - General Family Medicine 05/03/23 Janene Lew NP [address] [place] [address] PCP - [employer] 09/15/23 Shipping Weigher Relationship Specialty Start Date End Date Markel Haq MD [address] [place] [address] PCP - General Family Medicine 05/03/23 Janene Lew NP [address] [place] [address] PCP - [facility] 09/15/23 Shipping Weigher Relationship Specialty Start Date End Date Markel Haq MD [address] [place] [address] PCP - General Family Medicine 05/03/23 Janene Lew NP [address] [place] [address] PCP - [employer] 09/15/23 Shipping Weigher Relationship Specialty Start Date End Date Markel Haq MD [address] [place] [address] PCP - General Family Medicine 05/03/23 Janene Lew NP [address] [place] [address] PCP - [employer] 09/15/23 Shipping Weigher Relationship Specialty Start Date End Date Markel Haq MD [address] [place] [address] PCP - General Family Medicine 05/03/23 Janene Lew NP [address] [place] [address] PCP - [facility] 09/15/23 Shipping Weigher Relationship Specialty Start Date End Date Markel Haq MD [address] [place] [address] PCP - General Family Medicine 05/03/23 Janene Lew NP [address] [place] [address] PCP - [employer] 09/15/23 Shipping Weigher Relationship Specialty Start Date End Date Markel Haq MD [address] [place] [address] PCP - General Family Medicine 05/03/23 Janene Lew NP [address] [place] [address] PCP - [employer] 09/15/23 Shipping Weigher Relationship Specialty Start Date End Date Markel Haq MD [address] [place] [address] PCP - General Family Medicine 05/03/23 Janene Lew NP [address] [place] [address] PCP - [employer] 09/15/23 Shipping Weigher Relationship Specialty Start Date End Date Markel Haq MD [address] [place] [address] PCP - General Family Medicine 05/03/23 Janene Lew NP [address] [place] [address] PCP - [employer] 09/15/23 Shipping Weigher Relationship Specialty Start Date End Date Markel Haq MD [address] [place] [address] PCP - General Family Medicine 05/03/23 Janene Lew NP [address] [place] [address] PCP - [employer] 09/15/23 Shipping Weigher Relationship Specialty Start Date End Date Markel Haq MD [address] [place] [address] PCP - General Family Medicine 05/03/23 Shipping Weigher Relationship Specialty Start Date End Date Markel Haq MD [address] [place] [address] PCP - General Family Medicine 05/03/23 Shipping Weigher Relationship Specialty Start Date End Date Markel Haq MD [address] [place] [address] PCP - General Family Medicine 05/03/23 Shipping Weigher Relationship Specialty Start Date End Date Markel Haq MD [address] [place] [address] PCP - General Family Medicine 05/03/23 Shipping Weigher Relationship Specialty Start Date End Date Markel Haq MD [address] [place] [address] PCP - General Family Medicine 05/03/23 Shipping Weigher Relationship Specialty Start Date End Date Markel Haq MD [address] [place] [address] PCP - General Family Medicine 05/03/23 Shipping Weigher Relationship Specialty Start Date End Date Markel Haq MD [address] [place] [address] PCP - General Family Medicine 05/03/23 Shipping Weigher Relationship Specialty Start Date End Date Markel Haq MD [address] [place] [address] PCP - General [facility] 05/03/23 Shipping Weigher Relationship Specialty Start Date End Date Markel Haq MD [address] [place] [address] PCP - General [facility] 05/03/23 Team Status: Inactive Member Role Status Dates Janene Lew Primary Care Provider Active Sta rt: November 26, 2024 End: November 26, 2024 Halle Mac MD Attending Provider Active Star t: November 26, 2024 End: November 26, 2024 Goals (unrecognized section and content) Goals may [...] BE BASED ON THE PRIMARY CLINICAL RECORDS. [facility] [employer] [facility]. provides no warranty or guarantee of the accuracy or completeness of information in this document.
[2024-12-06 10:49] LABS: Hematocrit 37.0 % (36.0-48.0); Hemoglobin 11.9 g/dL (12.0-16.0); Immature Granulocytes Abs Auto 0.01 10^3/uL (0.00-0.03); Immature Granulocytes Pct Auto 0.2 % (0.0-0.5); Lymphocytes Absolute Auto 1.4 10^3/uL (1.2-3.8); Mean Corpuscular HGB Conc 32.2 g/dL (29.9-35.2); Mean Corpuscular Hemoglobin 29.8 pg (26.7-34.0); Mean Corpuscular Volume 92.7 fL (81.0-99.0); Platelet Count 282 10^3/uL (150-450); Red Blood Count 3.99 10^6/uL (4.20-5.40); White Blood Count 5.8 10^3/uL (4.0-11.0)
[2024-12-06 11:10] LABS: Anion Gap 14.1; Blood Urea Nitrogen 27.0 mg/dL (7.0-18.0); Calcium 9.3 mg/dL (8.5-10.1); Carbon Dioxide 23.9 mmol/L (21.0-32.0); Chloride 108 mmol/L (98-107); Estimated GFR (African America >60 (>=60 mL/min/1.73m^2); Estimated GFR (Non-African Ame 54 (>=60 mL/min/1.73m^2); Glucose 108 mg/dL (74-106); Potassium 4.0 mmol/L (3.5-5.1); Sodium 142 mmol/L (136-145)
== END 2024-12-06 10:24 | disposition home or self-care (01) ==
PROVIDERS: PCP Nurse Practitioner; Visit Provider Internal Medicine Interventional Cardiology
DX: R94.39 Abnormal result of other cardiovascular function study (principal)
CPT/HCPCS: 36415; 80048; 85025

== ENCOUNTER 2024-12-31 09:58 | Outpatient (OUT) | payer BC, SELFPAY ==
--- OUTSIDE RECORDS SUMMARY | 2024-02-29 05:00 | XMS_ITS ---
Author Organization [facility] Address [address] [place] [address] Care Team Providers Care Business Analytics Analyst Name Role Phone ELIZABETH DIAMOND CNP Primary Care Provider Leatha Garrison Unavailable [phone] REASON FOR VISIT LUMBAR PAIN Encounters Encounter Location Date Provider Diagnosis [facility] Office [address] [place] [address] [place] [address] 02/29/2024 Leatha Hernandez Lumbar pain M54.50 Assessments Encounter Date Diagnosis (ICD Code) Assessment Notes Treatment Notes Treatment Clinical Notes Section Notes 02/29/2024 Lumbar pain (ICD-10 - M54.50) Plan Of Treatment Pending Test Test Name Order Date Lumbar spine, 4v flex ext - 99793 2023 Progress Notes * SHARLENE HUMPHREYS ADOB: [birth year] (54 yo F)Acc No.[id number]:02/29/2024 Patient: SHARLENE MILLER Provider: Lizet Loya MD, PhD :1970 A ge:53 Y S ex:Female Date:02/29/2024 Address:[address], [id number] Pcp:ELIZABETH DIAMOND CNP Subjective: * Chief Complaints: * 1 . LUMBAR PAIN. * Medical History: Objective: * Vitals: Assessment: * Assessment: 1. L umbar pain - M54.50 (Primary) Plan: * Treatment: Forms: * Images: * Electronic signature of John Paul Hernandez MD, PHD on 12/31/2024 at 10:01 AM EDT Sign off status: Pending * Provider: Lizet Loya MD, PhD Date: 1 04/30/2023 Generated for Cinthia franco/Sony/Stephanie on: 0 12/31/2024 10:01 AM EDT
--- OUTSIDE RECORDS SUMMARY | 2024-03-21 05:00 | XMS_ITS ---
Author Organization [facility] Address [address] [place] [address] Care Team Providers Care Oil Expert Name Role Phone ELIZABETH DIAMOND CNP Primary Care Provider Leatha Garrison Unavailable [phone] REASON FOR VISIT LUMBAR PAIN Encounters Encounter Location Date Provider Diagnosis [facility] Office [address] [place] [address] [place] [address] 03/21/2024 Leatha Hernandez Plan Of Treatment Pending Test Test Name Order Date Lumbar spine, 4v flex ext - 68137 2023 Progress Notes * SHARLENE HUMPHREYS ADOB: [birth year] (54 yo F)Acc No.[id number]:03/21/2024 Patient: SHARLENE MILLER Provider: Lizet Loya MD, PhD :1970 A ge:53 Y S ex:Female Date:03/21/2024 [facility] [address] Pcp:ELIZABETH DIAMOND CNP Subjective: * Chief Complaints: * 1 . LUMBAR PAIN. * Medical History: Objective: * Vitals: Assessment: Plan: * Treatment: Forms: * Images: * Electronic signature of John Paul Hernandez MD, PHD on 12/31/2024 at 10:01 AM EDT Sign off status: Pending * Provider: Lizet Loya MD, PhD Date: 1 05/22/2023 Generated for Cinthia franco/Sony/eTransmitting on: 0 12/31/2024 10:01 AM EDT
--- OUTSIDE RECORDS SUMMARY | 2024-04-04 06:30 | XMS_ITS ---
Author Organization [facility] Address [address] [place] [address] Care Team Providers Care Glory Hole Tender Name Role Phone ELIZABETH DIAMOND CNP Primary Care Provider Leatha Garrison Unavailable [phone] REASON FOR VISIT BACK PAIN , SCS CONSULT, MRI/DREW Encounters Encounter Location Date Provider Diagnosis [facility] [address] [place] [address] [place] [address] 04/04/2024 Leatha Hernandez Plan Of Treatment Pending Test Test Name Order Date Lumbar spine, 4v flex ext - 31640 2023 Progress Notes * SHARLENE HUMPHREYS ADOB: [birth year] (54 yo F)Acc No.[id number]:04/04/2024 Patient: SHARLENE MILLER Provider: Lizet Loya MD, PhD :1970 A ge:53 Y S ex:Female Date:04/04/2024 [address]CB-[address] Pcp:ELIZABETH DIAMOND CNP Subjective: * Chief Complaints: * 1 . BACK PAIN , SCS CONSULT, MRI/DREW. * Medical History: Objective: * Vitals: Assessment: Plan: * Treatment: Forms: * Images: * Electronic signature of John Paul Hernandez MD, PHD on 12/31/2024 at 10:01 AM EDT Sign off status: Pending * Provider: Lizet Loya MD, PhD Date: 06/05/2023 Generated for Cinthia franco/Sony/Jonathanitting on: 0 12/31/2024 10:01 AM EDT
--- OUTSIDE RECORDS SUMMARY | 2024-12-31 10:01 | XMS_ITS | Encounter Summary ---
Author Organization [facility] Address [address] [place] [address] Care Team Providers Care Metallurgist Process Name Role Phone Janene Lew MD Primary Care Provider [phone] Reason for Visit * Reason Comments Med Refill Encounter Details Date Type Department Care Team ([facility] st Contact Info) Description 11/22/2022 Refill [facility] [address] [place] [phone] Tk Godoy MD [address] [facility] [address] [facility] [place] [phone] Hyperlipidemia, unspecified hyperlipidemia type Social History Tobacco Use Types Packs/Day Years Used Date Smoking Tobacco: Never Assessed Comments Unknown Sex and Gender Information Value Date Recorded Sex Assigned at Female 12/12/2024 6:54 AM EDT Legal Sex Female 10:36 PM EDT Gender Identity Female 12/12/2024 6:54 AM EDT Sexual Orientation Heterosexual or Straight 11/15 6:54 AM EDT documented as of this encounter Plan of Treatment Not on file documented as of this encounter Visit Diagnoses Diagnosis Hyperlipidemia, unspecified hyperlipidemia type documented in this encounter Care Teams Metallurgist Process Relationship Specialty Start Date End Date Janene Lew MD [address] [place] [address] PCP - General 09/26/22 documented as of this encounter
--- OUTSIDE RECORDS SUMMARY | 2024-12-31 10:01 | XMS_ITS | Encounter Summary ---
Author Organization [facility] Address [address] [place] [address] Care Team Providers Care Marketing Operations Consultant Name Role Phone Markel Braxton MD Primary Care Provider [phone] Encounter Details Date Type Department Care Team (Late st Contact Info) Description 11/17/2024 Abstract [facility] [address] [place] [address] Janene Lew, PRESCHOOL EDUCATION DIRECTOR [address] [place] [address] Social History Tobacco Use Types Packs/Day Years [...] How often do you attend chur or confucianist services? Never 11/18/2024 Do you belong to [...] Recorded Patient Health Questionnaire-2 Score 0 11/03/2024 [facility] - Occupational Stress [...] to sleep or slept in a senior care (including now)? Yes 05/02/2023 Housing Stability Vital Sign Answer Mitchell e Recorded In the last 12 months, was t here a time when you were not able to pay the mortgage or rent on time? No 11/18/2024 In the past 12 months, how m any times have you moved where you were living? 0 11/18/2024 At any time in the past 12 m [facility], were you homeless or living in a senior care (including now)? No 11/18/2024 Comments Unknown Sex [...] Assessment Author Never 11/18/2024 5:27 PM EDT Aranza Roth documented as of this encounter Plan of Treatment Upcoming Encounters Date Type Department Care Team (Late st Contact Info) Description 05/05/2025 10:15 AM EST Office Visit [facility] [address] [place] [address] Marya Loya DO [address] [place] [address] documented as of this encounter Visit Diagnoses Not on filedocumented in this encounter Additional Health Concerns Assessment Noted Time PHQ-9 Depression Total Score: 16 024 1:18 PM EST documented as of this encounter Care Teams Marketing Operations Consultant Relationship Specialty Start Date End Date Markel Braxton MD PCP - General Family Medicine 05/03/23 documented as of this encounter
--- OUTSIDE RECORDS SUMMARY | 2024-12-31 10:01 | XMS_ITS | Encounter Summary ---
Author Organization [facility] Address [address] [place] [address] Care Team Providers Care Millwork Estimator Name Role Phone Janene Lew MD Primary Care Provider [phone] Reason for Visit * Reason Comments Med Refill Encounter Details Date Type Department Care Team ([facility] st Contact Info) Description 10/18/2022 Refill [facility] [address] [place] [phone] Tk Godoy MD [address] [facility] [address] [place] [phone] Unstable angina pectoris (CMS/HCC) Social History Tobacco Use Types Packs/Day Years Used Date Smoking Tobacco: Never Assessed Comments Unknown Sex and Gender Information Value Date Recorded Sex Assigned at Female 12/12/2024 6:54 AM EDT Legal Sex Female 10:36 PM EDT Gender Identity Female 12/12/2024 6:54 AM EDT Sexual Orientation Heterosexual or Straight 11/15 6:54 AM EDT COVID-19 Exposure Response Date Recorded In the [...] syndrome documented in this encounter Care Teams Millwork Estimator Relationship Specialty Start Date End Date Janene Lew MD [address] [place] [address] PCP - General 09/26/22 documented as of this encounter
--- OUTSIDE RECORDS SUMMARY | 2024-12-31 10:01 | XMS_ITS | Encounter Summary ---
Author Organization [facility] Address [address] [place] [address] Care Team Providers Care Enterprise Systems Administrator Name Role Phone Markel Braxton MD Primary Care Provider [phone] Janene Lew NP Unavailable [phone] Encounter Details Date Type Department Care [...] week 05/02/2023 How often do you attend anabaptism or latter-day serv ices? Never 05/02/2023 Do you belong to any clubs o r organizations such as anabaptism groups, unions, fraternal or athletic groups, or [...] Recorded Patient Health Questionnaire-2 Score 4 05/03/2023 [facility] - Occupational [...] place to sleep or slept in a long-term (including now)? Yes 05/02/2023 Comments Unknown Sex and Gender Information Value Date Recorded Sex Assigned at Not on file Legal Sex Female 7:05 PM EDT Gender Identity Not on file Sexual Orientation Not on file documented as of this encounter Plan of Treatment Upcoming Encounters Date Type Department Care Team (Late st Contact Info) Description 05/05/2025 10:15 AM EST [facility] [address] [place] [address] Marya Loya DO [address] [place] [address] documented as of this encounter Procedures Procedure Name Priority Date/Time Associated Diagnosis Comments CA ECHO DOPPLER COMPLETE 05/10/2023 2:37 PM EST documented in this encounter Results * CA ECHO DOPPLER COMPLETE (05/10/2023 2:37 PM EST) Anatomical Region Laterality Modality Other 05/10/2023 2:37 PM EST Narrative 05/10/2023 2:39 PM EST The [address] [address] Cardiology Report Signed Patient: SHARLENE HUMPHREYS MR#: [id number] : 1970 Acct:[id number] Age/Sex: 52 / F ADM Date: 05/10/23 Loc: CARD Attending Dr: Radu Arias NP Ordering Physician: Radu Arias NP Date of Service: 05/10/23 Procedure(s): CA echo doppler complete Accession Number(s): [id number] cc: Janene Lew CIGAR MAKING SUPERVISOR; Radu Arias ELIER Patient Name: SHARLENE HUMPHREYS MR#: [id number] : 1970 Exam Date: 05/10/2023 Ordering Doctor: MRS. RADU ARIAS ELIER ECHOCARDIOGRAM REPORT PROCEDURE: CA ECHO DOPPLER COMPLETE [...] Signed By: 05/10/23 1439 DD/ 1437 TD/TT: Staff Nurse Icu Resource Team: Procedure Note Radiology, Radiologist, - 05/10/2023 [place] [address] Cardiology Report Signed Patient: SHARLENE HUMPHREYS AMR#: [id number] : 1970Acct:[id number] Age/Sex: 52 / FADM Date: 05/10/23 Loc: CARD Attending Dr: Radu Arias NP Ordering Physician: Radu Arias NP Date of Service: 05/10/23 Procedure(s): CA echo doppler complete Accession Number(s): [id number] cc: Janene Lew NP; Radu Arias NP Patient Name: SHARLENE HUMPHREYS MR#: [id number] : 1970 Exam Date: 05/10/2023 Ordering Doctor: [...] M.D. Signed By:05/10/23 1439 DD/ 1437 TD/TT: Staff Nurse Icu Resource Team: us Generic External Data Provider [facility] Final Result documented in this encounter Visit Diagnoses Not on filedocumented in this encounter Additional Health Concerns Assessment Noted Time PHQ-9 Depression Total Score: 16 024 1:18 PM EST documented as of this encounter Care Teams Enterprise Systems Administrator Relationship Specialty Start Date End Date Markel Braxton MD PCP - General Family Medicine 05/03/23 Janene Lew NP [address] [place] [address] PCP - Marshall Jaimes 09/15/23 documented as of this encounter
--- OUTSIDE RECORDS SUMMARY | 2024-12-31 10:01 | XMS_ITS | Encounter Summary ---
Author Organization [facility] Address [address] [place] [address] Care Team Providers Care Registered Route Associate Name Role Phone Markel Braxton MD Primary Care Provider [phone] Encounter Details Date Type Department Care Team (Late st Contact Info) Description 08/28/2024 Orders Only [facility] [address] [place] [phone] Becca Meneses, ELIER [address] [phone] Social History Tobacco Use Types Packs/Day Years [...] How often do you attend restoration or tenriism serv ices? Never 05/02/2023 Do you belong [...] place to sleep or slept in a penitentiary (including now)? Yes 05/02/2023 Comments Unknown Sex [...] [address] [place] [phone] Marya Loya DO [address] [place] [address] documented as of this encounter Procedures Procedure Name Priority Date/Time Associated Diagnosis Comments XR HIP 2 OR 3 VW RIGHT Routine 08/28/2024 10:40 AM EDT documented in this encounter Results * XR hip right 2 or 3 views (08/28/2024 10:40 AM EDT) Anatomical Region Laterality Modality Lower Extremities, Hip Right Radiograp hic Imaging Becca Meneses NP IMG XR PROCEDURES Final Result documented in this encounter Visit Diagnoses Not on filedocumented in this encounter Additional Health Concerns Assessment Noted Time PHQ-9 Depression Total Score: 16 024 1:18 PM EST documented as of this encounter Care Teams Registered Route Associate Relationship Specialty Start Date End Date Markel Braxton MD PCP - General Family Medicine 05/03/23 documented as of this encounter
--- OUTSIDE RECORDS SUMMARY | 2024-12-31 10:01 | XMS_ITS | Clinical Summary ---
Author Organization [facility] Address [address] [place] [address] Care Team Providers Care Exercise Rider Name Role Phone Janene Lew MD Primary Care Provider [phone] Allergies Active Allergy Reactions Criticality Noted Date Comments Cephalexin Other,Rash High 06/27/2013 Empagliflozin 09/29/2022 Esomeprazole Magnesium Other 06/22/2016 [...] BY MOUTH ONCE DAILY 08/22/19 23 Active busPIRone (Buspar) 30 mg tablet Take 20 mg by mouth in the morning and at bedtime. 08/23/19 23 Active cetirizine 10 mg capsule Take by mouth in the morning. Active cholecalciferol (Vitamin D-3) 1,250 mcg (50,000 unit) capsule Take 1 capsule every week by oral route for 28 days. Active gabapentin (Neurontin) 300 mg capsule Take 300 mg by mouth if needed. 10/27/19 22 Active pioglitazone (Actos) 45 mg tablet [...] mouth in the morning. 08/23/19 24 Active nitroglycerin (Nitrostat) 0.4 mg SL tabletIndications: Coronary artery disease involving [place] coronary artery of [place] heart without angina pectoris Place 1 tablet as needed by sublingual route as needed; if no relief repeat in 5 mins for total of 3 tabs. If no response, seek medical attention/go to the nearest ER 90 tablet 12/18/19 24 Active Additional Information Patient not taking.Reported on 12/12/2024 metoprolol succinate XL (Toprol-XL) 25 mg 24 [...] 180 tablet 3 11/14/19 25 026 Active atorvastatin (Lipitor) 80 mg tabletIndications: Hyperlipidemia, unspecified hyperlipidemia type Take 1 tablet (80 mg) by mouth at bedtime. 90 tablet 3 12/12/19 25 026 Active cyanocobalamin (Vitamin B-12) 2,000 mcg tablet Take 2,000 mcg by mouth in the morning. Active buPROPion XL (Wellbutrin XL) 300 mg 24 hr tablet Take 300 mg by mouth in the morning. 12/26/19 17 025 Discontin ued(Med List Cleanup) furosemide (Lasix) 20 mg tablet Take 20 mg by mouth in the morning. 06/30/19 025 Discontin ued(Med List Cleanup) glipiZIDE (Glucotrol) 5 mg tablet Take 5 mg by mouth in the morning. 12/20/19 22 025 Discontin ued(Med List Cleanup) lamoTRIgine (LaMICtal) 200 mg tablet Take 250 mg by mouth in the morning. 025 Discontin ued(Med List Cleanup) escitalopram (Lexapro) 20 mg tablet Take 1 tablet by mouth in the morning. 025 Discontin ued(Med List Cleanup) atorvastatin (Lipitor) 80 mg tabletIndications: Hyperlipidemia, unspecified hyperlipidemia type Take 1 tablet (80 mg) by mouth at bedtime. 90 tablet 3 12/18/19 24 025 Discontin ued(Reord er) Active Problems Problem Noted Date Diagnosed Date Abnormal cardiovascular stress test 11/18/2024 Assessment & Plan (12/12/2024 8:06 AM EDT): - proceed with coronary angiogram, discussed risks including stroke, NC, . Patient agreeable to proceed. No associated orders from this encounter found during lookback period of 72 hours. Lumbar facet arthropathy 09/03/2024 Acute left ankle [...] Plan: Would like a referral to podiatry [facility] if possible Anemia 04/30/2023 Bradycardia 04/30/2023 GERD [...] Morbid obesity with BMI of 50.0-59.9, adult 0909/201603/14/2023 Back pain 12/15/2016 Overview (10/03/2022): sees pain mgmt Hip pain, bilateral 12/15/2016 Anxiety 12/15/2016 Arthritis 12/15/2016 Diabetes mellitus 12/15/2016 Heart disease 12/15/2016 03/14/2023 Seasonal allergies 12/15/2016 03/14/2023 Chronic diastolic heart failure 08/26/2015 Coronary arteriosclerosis in [place] artery 08/25 Morbid obesity 08/26/2015 03/14/2023 Obstructive [...] Encounters Date Type Department Care Team Description 12/12/2024 8:30 AM EDT - 12/12/2024 9:30 AM EDT Surgery [facility] [address] [place] [address] Tk Godoy MD Coronary angiography 12/12/2024 6:55 AM EDT - 12/12/2024 11:55 AM EDT Hospital Encounter [facility] [address] [place] [address] Tk Godoy MD Abnormal cardiovascular stress test Discharge Disposition: Home or Self Care () 12/12/2024 Travel 12/11/[address] [facility] [address] [place] [address] Tk Godoy MD Hyperlipidemia, unspecified hyperlipidemia type 12/10/2024 Orders Only [address] [address] ProviderWolfgang MD 12/05/2024 Travel 11/18/2024 Telephone [facility] [address] [facility] [place] [address] Lauren Thurston MA 11/17/2024 Orders Only [facility] [address] [place] [address] ProviderWolfgang MD 11/13/2024 Refill [facility] [address] [place] [address] Erika Pereyra MA Chronic diastolic heart failure (CMS/HCC) 10/16/2024 9:00 AM EDT Office Visit [address] [address] Tk Godoy MD Pre-op evaluation (Primary Dx); Coronary artery disease, unspecified vessel or lesion type, unspecified whether angina present, unspecified whether [place] or transplanted heart; Syncope, unspecified syncope type [...] Heterosexual or Straight 11/15 6:54 AM EDT Last Filed Vital Signs Vital Sign Reading Time Taken Comments Blood Pressure 107/64 12/12/2024 11:30 AM EDT Pulse 55 12/12/2024 11:30 AM EDT Temperature - - Respiratory Rate 18 12/12/2024 11:30 AM EDT Oxygen Saturation 93% 12/12/2024 11:30 AM EDT Inhaled Oxygen Concentration - - Weight 102 kg (225 lb) 12/12/2024 7:18 AM EDT Height 162.6 cm (5' 4 ) 12/12/2024 7:18 AM EDT Body Mass Index 38.62 12/12/2024 7:18 AM EDT Plan of Treatment Health Maintenance Due [...] Procedure Name Priority Date/Time Associated Diagnosis Comments ECG 12-LEAD Today 12/12/2024 10:51 AM EDT CORONARY ANGIOGRAPHY Routine 12/12/2024 9:14 AM EDT Abnormal cardiovascular stress test ACTIVATED CLOTTING TIME Routine 12/12/2024 9:08 AM EDT ACTIVATED CLOTTING TIME Routine 12/12/2024 8:59 AM EDT ECG 12-LEAD Routine 12/12/2024 7:58 AM EDT CARDIAC EVENT MONITOR Routine 11/18/2024 9:43 AM EDT LEXISCAN STRESS MYOCARDIAL PERFUSION IMAGING Routine 11/13/2024 11:08 AM EDT ECG 12 LEAD UNIT PERFORMED Routine 10/16/2024 9:20 AM EDT Pre-op evaluation from Last 3 Months Results * ECG 12 lead (12/12/2024 10:51 AM EDT) Only the most recent of2 resultswithin the time period is included. Ventricular Rate 56 BPM GE MUSE Atrial Rate 56 BPM GE MUSE RI Interval 184 ms GE MUSE QRS DURATION 88 ms GE MUSE QT Interval 450 ms GE MUSE QTC CALCULATION(BAZE TT) 434 ms GE MUSE P [place] 24 degrees GE MUSE R-[place] -19 degrees GE MUSE T Wave [place] -3 degrees GE MUSE 12/12/2024 9:49 AM EDT 12/12/2024 4:09 PM EDT Impressions GE MUSE - 12/12/2024 4:09 PM EDT Sinus bradycardia Inferior infarct (cited on or before 05-OCT-2009) Abnormal ECG When compared with ECG of 12-DEC-2024 07:28, (unconfirmed) No significant change was found Confirmed by Leonel WRIGHT SAMER J. ([id number]) on 12/12/2024 4:09:04 PM Narrative Procedure Note Stan Wright MD - 12/12/2024 IMPRESSION: Sinus bradycardia Inferior infarct (cited on or before 05-OCT-2009) Abnormal ECG When compared with ECG of 12-DEC-2024 07:28, (unconfirmed) No significant change was found Confirmed by Leonel WRIGHT SAMER J. ([id number]) on 12/12/2024 4:09:04 PM Ehab Jayne SHARMA ECG ORDERABLES Final Result GE MUSE * CORONARY ANGIOGRAPHY (12/12/2024 9:14 AM EDT) Anatomical Region Laterality Modality Other Narrative 12/12/2024 9:47 AM EDT Cardiovascular Laboratory Report FINAL IMPRESSIONS: Moderate, focal, stenosis of the secondary to his marginal branch of the left circumflex coronary artery nonhemodynamically significant as assessed by instantaneous wave free ratio (iFR) Moderate in-stent restenosis of the mid left anterior descending coronary artery Mild disease of the right coronary artery Normal global left ventricular systolic function by noninvasive imaging RECOMMENDATIONS: The patient is at acceptable risk to proceed with planned procedures; recommend strict heart rate and blood pressure control and avoidance of major fluid shifts periprocedurally Aspirin is not to be held given the increased risk for stent thrombosis Aggressive cardiovascular factor modification Optimal medical therapy for coronary artery disease should include aspirin, high intensity statin therapy, a beta-seema plus or minus a RAAS inhibitor Follow-up with Dr. Godoy in the [place] office in the next 4 to 6 months or sooner should problems arise PROCEDURES: Ultrasound-guided access to the left radial artery, bilateral selective coronary angiography via a left radial approach, instantaneous wave free ratio (iFR) of the second obtuse marginal of the left circumflex coronary artery METHODS: After risks, benefits, and alternatives were explained, written informed consent was obtained. The patient was prepped and draped in usual sterile fashion over the left wrist. Local infiltration anesthesia was achieved of the left wrist. Using a micropuncture kit, access to the left radial artery was obtained. A 6 [place] glide sheath was inserted without difficulty. Bilateral selective coronary angiography was performed using JR 4.0 and JL 3.5 catheters. After reviewing the images, it was elected to proceed with a physiological assessment of the obtuse marginal stenosis. An XB 3.0 guide catheter was advanced again and coaxially engaged into the left main ostium. The OMNI pressure wire was advanced through the catheter, with pressures normalized just after exiting the catheter. It was used to traverse the suspect stenosis. An instantaneous wave free ratio was performed. The wire was removed. Final angiography showed JANEL-3 flow with no dissection or thrombus or distal wire trauma. After reviewing the data, it was elected to conclude the procedure. The catheters were removed. The radial sheath was removed with application of a TR band per protocol to achieve optimal hemostasis. FINDINGS: Hemodynamics: AO 125/75 [89] LEFT VENTRICULOGRAPHY: This was not performed. Ejection fraction is 74% by noninvasive stress test. CORONARY ARTERIES: Left main coronary artery: This arises from the left coronary cusp and branches into the left anterior descending and left circumflex coronary arteries. It is free of significant stenosis. Left anterior descending coronary artery: This shows moderate plaque throughout. There is evidence of a previously placed mid vessel stent. There is a proximal to mid vessel 50% in-stent restenosis. The diagonal branches show mild disease. Left circumflex coronary artery: This shows mild plaque proximally. The device to a small first twos marginal and a large branching second obtuse marginal. There is a proximal 50% focal stenosis in the second twos marginal; instantaneous wave free ratio iFR is 0.99. Final images show JANEL-3 flow with no dissection thrombus or dislodgment. Right coronary artery: This is a dominant vessel arising from the right coronary cusp and giving rise to the posterior descending and posterolateral branches. It shows a mid vessel 30% stenosis. There are luminal irregularities throughout the remainder of the vessel. INDICATIONS: Coronary artery disease, dyspnea on exertion, abnormal stress test, preoperative evaluation Coronary Findings Diagnostic Dominance: Right No diagnostic findings have been documented. Intervention No interventions have been documented. Tk Godoy MD CV CARDIAC CATH PROCEDURES Kanchan l Result * (ABNORMAL) Activated clotting time (12/12/2024 9:08 AM EDT) Only the most recent of2 resultswithin the time period is included. [facility] Activated Clotting Time 400.0(H) 82 - 152 s 12/12/2024 9:12 AM EDT [facility] ([facility]) Comment:>^Outside Reportable Range Blood Venous blood specimen / Unknown 12/12/2024 9:08 AM EDT 12/12/2024 9:12 AM EDT Tk Godoy MD LAB POINT OF CARE TE ST DOCKED DEVICE UNSOLICITED RESULTS Final Result [facility] ([facility]) [address] [place] [address] * Cardiac event monitor (11/18/2024 9:43 AM EDT) Anatomical Region Laterality Modality Other Historical Provider CV CARDIAC SERVICES FLAKITA CUMMINS Final Result * Lexiscan Stress Myocardial Perfusion Imaging (11/13/2024 11:08 AM EDT) Anatomical Region Laterality Modality Other Historical Provider CV STRESS PROCEDURES Kanchan gannon Result * ECG 12 lead unit performed (10/16/2024 9:20 AM EDT) Ehab Jayne SHARMA ECG ORDERABLES Final Result from Last 3 Months Insurance [facility] Advance Directives * Full Code (Latest Code Status on File) Date Activated Date Inactivated Comments 12/12/2024 9:28 AM 12/12/2024 1:55 PM Care Teams Exercise Rider Relationship Specialty Start Date End Date Janene Lew MD [address] [place] [address] PCP - General 09/26/22
--- OUTSIDE RECORDS SUMMARY | 2024-12-31 10:01 | XMS_ITS | Patient Health Record ---
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) Referral Organization [facility] Referring Provider First Name Leatha Referring Provider Last Name [facility] Referring Provider Speciality Orthopedic Surgery Referred Organization Pain clinic General Notes Nini Priest 2024 09:22:08 AM >, Nini Priest 04/29/2024 08:16:10 AM >FAXED Referral Priority Routine Problems Problem Type SNOMED Code ICD Code Onset Dates Problem Status W/U Status Risk Notes Problem 60776009 Other intervertebral disc displacement, 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) Active confirmed Problem 672188785 Lumbar facet arthropathy (M47.816) Active confirmed Problem 60782639 Degeneration of intervertebral disc of lumbar region with discogenic back pain and lower extremity pain (M51.362) Active confirmed Vital Signs Height 5 ft 4 in in 04/18/2024 Weight 250 lbs 04/18/2024 BMI 42.91 04/18/2024 Encounters Encounter Location Date Provider Diagnosis [facility] Office [address] [place] [address] [place] [address] 04/18/2024 Aysha Arreaga Other intervertebral disc displacement, [...] Date Lumbar spine, 4v flex ext - 11452 2024 Insurance Providers Payer Name Payer Address Payer Phone Subscriber Number Group Number Insured Name Patient Relationship to Insured Coverage Start Date Coverage End Date [place] [address] [place] [phone] [id number] SHARLENE ANAYA Self - patient is the insured
--- OUTSIDE RECORDS SUMMARY | 2024-12-31 10:01 | XMS_ITS | Encounter Summary ---
Author Organization [facility] Address [address] [place] [address] Care Team Providers Care Licensed Appraiser Name Role Phone Janene Lew MD Primary Care Provider [phone] Reason for Visit * Reason Comments Med Refill Encounter Details Date Type Department Care Team (Late st Contact Info) Description 08/24/2022 Refill [facility] [address] [place] [phone] Tk Gdooy MD [address] [facility] [address] [facility] [place] [phone] Palpitations; Hyperlipidemia, unspecified hyperlipidemia type Social History [...] type documented in this encounter Care Teams Licensed Appraiser Relationship Specialty Start Date End Date Janene Lew MD [address] [place] [address] PCP - General 09/26/22 documented as of this encounter
--- OUTSIDE RECORDS SUMMARY | 2024-12-31 10:01 | XMS_ITS | Encounter Summary ---
Author Organization [facility] Address [address] [place] [address] Care Team Providers Care Strategic Communications Manager Name Role Phone Markel Braxton MD Primary Care Provider [phone] Janene Lew NP Unavailable [phone] Encounter Details Date Type Department Care [...] How often do you attend restorationist or sikhism serv ices? Never 05/02/2023 Do you belong [...] Recorded Patient Health Questionnaire-2 Score 0 02/19/2024 [facility] - Occupational Stress Questionnaire Answer Date [...] [address] [place] [address] Marya Loya, [address] [place] [address] documented as of this encounter Procedures Procedure Name Priority Date/Time Associated Diagnosis Comments XR LUMBAR SPINE MIN 4V 04/21/2024 6:29 AM EST documented in this encounter Results * XR LUMBAR SPINE MIN 4V (04/21/2024 6:29 AM EST) Anatomical Region Laterality Modality Other 04/21/2024 6:29 AM EST Narrative 04/21/2024 6:32 AM EST The [address] [address] XRay Report Signed Patient: SHARLENE HUMPHREYS MR#: [id number] : 1970 Acct:[id number] Age/Sex: 53 / F ADM Date: 04/18/24 Loc: EC Attending Dr: Kelly Loya M.D. Ordering Physician: Kelly Loya M.D. Date of Service: 04/18/24 Procedure(s): XR lumbar spine min 4V Accession Number(s): [id number] cc: Janene Lew NP; Kelly Loya M.D. The [address] [address] Patient Name: SHARLENE HUMPHREYS MRN: [facility]:[id number] date: 1970 Sex: F Assigned Patient Location: Current Patient Location: Accession/Order Number: [id number] Exam Date: 04/18/2024 08:38 Report Date: 04/21/2024 [...] Raul Hendricks M.D. Signed By: 04/21/2432 DD/ TD/TT: Water Regulator And Valve Repairer: Procedure Note Radiology, Radiologist, MD - 04/21/2024 [place] [address] XRay Report Signed Patient: SHARLENE HUMPHREYS AMR#: [id number] : 1970Acct:[id number] Age/Sex: 53 / FADM Date: 04/18/24 Loc: EC Attending Dr: Kelly Loya M.D. Ordering Physician: Kelly Loya M.D. Date of Service: 04/18/24 Procedure(s): XR lumbar spine min 4V Accession Number(s): [id number] cc: Janene Lew NP; Kelly Loya M.D. [place] [address] Patient Name: SHARLENE HUMPHREYS MRN: [facility]:[id number] date: 1970 Sex: F Assigned Patient Location: Current Patient Location: Accession/Order Number: [id number] Exam Date: 04/18/2024 08:38 Report Date: 04/21/2024 [...] Jose Raul Hendricks M.D. Signed By:04/21/2432 DD/ TD/TT: Water Regulator And Valve Repairer: us Generic External Data Provider [facility] Final Result documented in this encounter Visit Diagnoses Not on filedocumented in this encounter Additional Health Concerns Assessment Noted Time PHQ-9 Depression Total Score: 16 024 1:18 PM EST documented as of this encounter Care Teams Strategic Communications Manager Relationship Specialty Start Date End Date Markel Braxton MD PCP - General Family Medicine 05/03/23 Janene Lew NP [address] [place] [phone] PCP - [place] [employer] 09/15/23 documented as of this encounter
--- OUTSIDE RECORDS SUMMARY | 2024-12-31 10:01 | XMS_ITS | Encounter Summary ---
Author Organization [facility] Address [address] [place] [address] Care Team Providers Care Cereal Miller Name Role Phone Janene Lew MD Primary Care Provider [phone] Reason for Visit * Reason Comments Med Refill Encounter Details Date Type Department Care Team (Late st Contact Info) Description 11/22/2022 Refill [facility] [address] [place] [address] Radu Arias CNP Essential hypertension Social History [...] hypertension documented in this encounter Care Teams Cereal Miller Relationship Specialty Start Date End Date Janene Lew MD [address] [place] [address] PCP - General 09/26/22 documented as of this encounter
--- OUTSIDE RECORDS SUMMARY | 2024-12-31 10:01 | XMS_ITS | Encounter Summary ---
Author Organization [facility] Address [address] [place] [address] Care Team Providers Care Third Hand Name Role Phone Janene Lew MD Primary Care Provider [phone] Reason for Visit * Reason Comments Med Refill Encounter Details Date Type Department Care Team (Late st Contact Info) Description 09/24/[address] [facility] [address] [place] [phone] Tk Godoy MD [address] [facility] [address] [place] [phone] Unstable angina pectoris (CMS/HCC) Social History Tobacco [...] syndrome documented in this encounter Care Teams Third Hand Relationship Specialty Start Date End Date Janene Lew MD [address] [place] [address] PCP - General 09/26/22 documented as of this encounter
--- OUTSIDE RECORDS SUMMARY | 2024-12-31 10:01 | XMS_ITS | Encounter Summary ---
Author Organization [facility] Address [address] [place] [address] Care Team Providers Care Technical Assoc Name Role Phone Markel Braxton MD Primary Care Provider [phone] Encounter Details Date Type Department Care Team (Late st Contact Info) Description 11/25/2024 Orders Only [facility] [address] [facility] [place] [phone] Social History Tobacco Use Types Packs/Day Years [...] often do you attend chur ch or church services? Never 11/18/2024 Do you belong to [...] Recorded Patient Health Questionnaire-2 Score 0 11/03/2024 [facility] - Occupational Stress Questionnaire Answer [...] place to sleep or slept in a chcf (including now)? Yes 05/02/2023 Housing Stability Vital [...] were you homeless or living in a chcf (including now)? No 11/18/2024 Comments Unknown Sex and Gender Information Value Date Recorded Sex Assigned at Not on file Legal Sex Female 7:05 PM EDT Gender Identity Not on file Sexual Orientation Not on file documented as of this encounter Plan of Treatment Upcoming Encounters Date Type Department Care Team (Late st Contact Info) Description 05/05/2025 10:15 AM EST Office Visit [facility] [place] [facility] [address] [place] [phone] Marya Loya DO [address] [place] [address] documented as of this encounter Procedures Procedure Name Priority Date/Time Associated Diagnosis Comments XR CHEST 2 VIEWS Routine 11/25/2024 7:52 AM EDT documented in this encounter Results * XR chest 2 views (11/25/2024 7:52 AM EDT) Anatomical Region Laterality Modality Chest Radiographic Rowan ging [facility] IMG XR PROCEDURES Final Result documented in this encounter Visit Diagnoses Not on filedocumented in this encounter Additional Health Concerns Assessment Noted Time PHQ-9 Depression Total Score: 16 024 1:18 PM EST documented as of this encounter Care Teams Technical Assoc Relationship Specialty Start Date End Date Markel Braxton MD PCP - General Family Medicine 05/03/23 documented as of this encounter
--- OUTSIDE RECORDS SUMMARY | 2024-12-31 10:01 | XMS_ITS | Encounter Summary ---
Author Organization [facility] Address [address] [place] [address] Care Team Providers Care Manager Van Name Role Phone Markel Braxton MD Primary Care Provider [phone] Encounter Details Date Type Department Care Team (Late st Contact Info) Description 11/25/2024 Abstract [facility] [address] [place] [address] Janene Lew, SUPERVISOR LAST MODEL DEPARTMENT [address] [place] [address] Social History Tobacco Use Types Packs/Day Years [...] Recorded Patient Health Questionnaire-2 Score 0 11/03/2024 [facility] - Occupational [...] place to sleep or slept in a halfway (including now)? Yes 05/02/2023 Housing Stability Vital [...] time in the past 12 m [facility], were you homeless or living in a halfway (including now)? No 11/18/2024 Comments Unknown Sex [...] [address] [place] [phone] Marya Loya DO [address] [place] [address] documented as of this encounter Visit Diagnoses Not on filedocumented in this encounter Additional Health Concerns Assessment Noted Time PHQ-9 Depression Total Score: 16 024 1:18 PM EST documented as of this encounter Care Teams Manager Van Relationship Specialty Start Date End Date Markel Braxton MD PCP - General Family Medicine 05/03/23 documented as of this encounter
--- OUTSIDE RECORDS SUMMARY | 2024-12-31 10:01 | XMS_ITS | Clinical Summary ---
Author Organization [facility] Address [address] [facility] [place] [address] Phone Care Team Providers Care Dormitory Maid Name Role Phone Unavailable Primary Care Provider [...]
--- OUTSIDE RECORDS SUMMARY | 2024-12-31 10:01 | XMS_ITS | Encounter Summary ---
Author Organization [facility] Address [address] [place] [address] Care Team Providers Care Casting Technician Name Role Phone Markel Braxton MD Primary Care Provider [phone] Markel Braxton MD Primary Care Provider [phone] Janene Lew CREDENTIALING COORDINATOR Unavailable [phone] Encounter Details Date Type Department Care Team (Late st Contact Info) Description 05/01/2023 Abstract [facility] [address] [place] [address] Janene Lew NP [address] [facility] [place] [phone] Social History Tobacco Use Types Packs/Day Years [...] week 05/02/2023 How often do you attend anabaptist or mandaen serv ices? Never 05/02/2023 Do you belong to any clubs o r organizations such as anabaptist groups, unions, fraternal or athletic groups, or [...] Recorded Patient Health Questionnaire-2 Score 4 05/03/2023 [facility] - Occupational Stress Questionnaire Answer Date [...] than half the days 05/03/2023 1:18 PM Lili Bishop MA Feeling down, depressed, or hopeless More than half the days 05/03/2023 1:18 PM Lili Bishop MA Patient Health Questionnaire-2 Score 4 05/03/2023 1:18 PM Aretha Bishop MA * Question Answer Date of Assessment Author Trouble falling or staying asleep, or sleeping too much More than half the days 05/03/2023 1:18 PM Lili Bishop MA Feeling tired or having little energy More than half the days 05/03/2023 1:18 PM Lili Bishop MA Poor appetite or overeating More than half the days 05/03/2023 1:18 PM Lili Bishop MA Feeling bad about yourself - or that you are a failure or have let yourself or your family down More than half the days 05/03/2023 1:18 PM Lili Bishop MA Trouble concentrating on things, such as reading the newspaper or watching television More than half the days 05/03/2023 1:18 PM Lili Bishop MA Moving or speaking so slowly that other people could have noticed? Or the opposite - being so fidgety or restless that you have been moving around a lot more than usual. More than half the days 05/03/2023 1:18 PM Lili Bishop MA Thoughts that you would be better off or hurting yourself in some way Not at all 05/03/2023 1:18 PM Lili Bishop MA Patient Health Questionnaire-9 Score 16 05/03/2023 1:18 PM Lili Bishop MA * If you checked off any problems on this questionnaire so far, Question Answer Date of Assessment Author How difficult have these problems made it for you to do your work, take care of things at home, or get along with other people? Not difficult at all 05/03/2023 1:18 PM Yuly Bishop MA documented as of this encounter Plan of Treatment Upcoming Encounters Date Type Department Care Team (Late st Contact Info) Description 05/05/2025 10:15 AM EST Office Visit [facility] [address] [place] [address] Marya Loya, DO [address] [place] [address] documented as of this encounter Visit Diagnoses Not on filedocumented in this encounter Care Teams Casting Technician Relationship Specialty Start Date End Date Markel Braxton MD PCP - General Family Medicine 10/25/22 05/02/23 Markel Braxton MD PCP - General Family Medicine 05/03/23 Janene Lew NP [address] [place] [address] [facility] 09/15/23 documented as of this encounter
--- OUTSIDE RECORDS SUMMARY | 2024-12-31 10:01 | XMS_ITS | Encounter Summary ---
Author Organization [facility] Address [address] [place] [address] Care Team Providers Care Nuclear Control Room Operator Name Role Phone Janene Lew MD Primary Care Provider [phone] Reason for Visit * Reason Comments Med Refill Encounter Details Date Type Department Care Team ([facility] st Contact Info) Description 11/22/2022 Refill [facility] [address] [place] [phone] Tk Godoy MD [address] [facility] [address] [facility] [phone] Hyperlipidemia, unspecified hyperlipidemia type Social History Tobacco [...] type documented in this encounter Care Teams Nuclear Control Room Operator Relationship Specialty Start Date End Date Janene Lew MD [address] [place] [address] PCP - General 09/26/22 documented as of this encounter
--- OUTSIDE RECORDS SUMMARY | 2024-12-31 10:01 | XMS_ITS | Encounter Summary ---
Author Organization [facility] Address [address] [place] [address] Care Team Providers Care Fire Behavior Analyst Name Role Phone Markel Braxton MD Primary Care Provider Encounter Details Date Type Department Care Team (Late st Contact Info) Description 08/28/2024 Abstract [facility] [address] [place] [address] Janene Lew, CUSTOM FEED MILL OPERATOR HELPER [address] [place] [address] Social History Tobacco Use Types Packs/Day Years [...] week 05/02/2023 How often do you attend gnosticist or restorationist serv ices? Never 05/02/2023 Do you belong to any clubs o r organizations such as gnosticist groups, unions, fraternal or athletic groups, or [...] Recorded Patient Health Questionnaire-2 Score 0 06/16/2024 [facility] - Occupational Stress Questionnaire Answer Date [...] [address] [place] [address] Marya Loya, [address] [place] [address] documented as of this encounter Visit Diagnoses Not on filedocumented in this encounter Additional Health Concerns Assessment Noted Time PHQ-9 Depression Total Score: 16 024 1:18 PM EST documented as of this encounter Care Teams Fire Behavior Analyst Relationship Specialty Start Date End Date Markel Braxton MD PCP - General Family Medicine 05/03/23 documented as of this encounter
--- OUTSIDE RECORDS SUMMARY | 2024-12-31 10:01 | XMS_ITS | Encounter Summary ---
Author Organization [facility] Address [address] [place] [address] Care Team Providers Care Assistant Construction 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 Name Role Phone Markel Braxton MD Primary Care Provider [phone] Janene Lew NP Unavailable [phone] Encounter Details Date Type Department Care Team (Late st Contact Info) Description 02/04/2024 Orders Only [facility] [address] [facility] [place] [address] Becca Meneses NP [address] [place] [address] Social History Tobacco Use Types [...] week 05/02/2023 How often do you attend yazidi or restorationist serv ices? Never 05/02/2023 Do you belong to any clubs o r organizations such as yazidi groups, unions, fraternal or athletic groups, or [...] Recorded Patient Health Questionnaire-2 Score 0 09/20/2023 [facility] - Occupational Stress Questionnaire Answer Date Recorded [...] [address] [place] [phone] Marya Loya DO [address] [place] [address] documented as of this encounter Procedures Procedure Name Priority Date/Time Associated Diagnosis Comments MR LUMBAR SPINE WO CONTRAST Routine 02/04/2024 10:55 AM EDT documented in this encounter Results * MR lumbar spine wo contrast (02/04/2024 10:55 AM EDT) Anatomical Region Laterality Modality Spine, L-spine Magnetic Resonan ce Becca Meneses NP [facility] MRI PROCEDURES Final Result documented in this encounter Visit Diagnoses Not on filedocumented in this encounter Additional Health Concerns Assessment Noted Time PHQ-9 Depression Total Score: 16 2 024 1:18 PM EST documented as of this encounter Care Teams Assistant Construction 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 Relationship Specialty Start Date End Date Markel Braxton MD PCP - General Family Medicine 05/03/23 Janene Lew NP [address] [place] [address] PCP - [place] [employer] 09/15/23 documented as of this encounter
--- OUTSIDE RECORDS SUMMARY | 2024-12-31 10:01 | XMS_ITS | Clinical Summary ---
Author Organization [employer] [facility] tem Address [id number] [address] [place] [address] Care Team Providers Care Court Messenger Name Role Phone Markel Braxton MD Primary Care Provider [phone] Allergies Active Allergy Reactions Criticality Noted Date [...] diastolic heart failure 08/26/2015 Coronary arteriosclerosis in [place] artery 08/25 Essential hypertension 08/26/2015 Morbid obesity [...] Health Maintenance Due Date Last Done Comments Statin Use: Cardiovascular 1970 Depression Screening 1982 Tobacco Screening 1982 Adult BMI Screening 1988 DTaP,Tdap and Td Vaccines (1 - Tdap) 1989 Zoster (Shingles) Vaccine (1 of 2) 2020 Influenza Vaccine 12/15/2024 Goals Goal Patient Goal Type Associated Problems Recent Progress Patient-Stated? Author For safe transition from hospital to home General Yes Cathy Louie, MELISSA Note: Evaluation of progress towards goal: Plan is to return home with resumption of [facility] and TPN lose weight ~ No Galilea Iverson RN Note: Evaluation of progress towards goal: Pt will follow and tolerate gastric bypass diet to optimize weight loss. Medical Devices Implanted Type Area Mastic Man Device Identifier Shelf Expiration Date Model / Serial / Lot Rods,Screws Other Implant Neck Cardiac Stent Advance Directives * Full Code (Latest Code Status on File) Date Activated Date Inactivated Comments 12/20/2016 5:14 PM 12/22/2016 7:[address] Relationship Specialty Start Date End Date Markel Braxton MD PCP - General 06/22/16
--- OUTSIDE RECORDS SUMMARY | 2024-12-31 10:02 | XMS_ITS | Encounter Summary ---
Author Organization [facility] Address [address] [place] [address] Care Team Providers Care Wealth Management Advisor Name Role Phone Markel Braxton MD Primary Care Provider [phone] Janene Lew COTTON OPENER Unavailable [phone] Encounter Details Date Type Department Care Team (Late st Contact Info) Description 09/28/2023 Clinisync Result Encounter [facility] External Department Unsolicited Janene Lew, EL[place] [address] [place] [address] Social History Tobacco Use Types Packs/Day Years [...] How often do you attend religious or mandaen serv ices? Never 05/02/2023 Do [...] Recorded Patient Health Questionnaire-2 Score 0 09/20/2023 [facility] - Occupational Stress Questionnaire Answer Date [...] [address] [place] [address] Marya Loya DO [address] [place] [address] documented as of this encounter Procedures Procedure Name Priority Date/Time Associated Diagnosis Comments MM TOMOSYNTHESIS SCREENING BI 09/28/2023 10:49 AM EDT documented in this encounter Results * MM TOMOSYNTHESIS SCREENING BI (09/28/2023 10:49 AM EDT) Anatomical Region Laterality Modality Other 09/28/2023 10:4 9 AM EDT Narrative 09/28/2023 10:50 AM EDT The [address] [address] Mammography Report Signed Patient: SHARLENE HUMPHREYS MR#: [id number] : 1970 Acct:[id number] Age/Sex: 52 / F ADM Date: 09/28/23 Loc: MAMMO Attending Dr: Janene Lew NP Ordering Physician: Janene Lew NP Results: Date of Service: 09/28/23 Follow Up: Procedure(s): MM tomosynthesis screening BI Accession Number(s): [id number] cc: Janene Lew NP Patient Name: SHARLENE HUMPHREYS MR#: [id number] : 1970 Exam Date: 09/28/2023 Ordering Doctor: [...] head/neck cancer at age 73. LOCATION: The [facility] BREAST COMPOSITION: There are scattered [...] Signed By: 09/28/23 1050 DD/ 1049 TD/TT: Health Program Specialist: Procedure Note Radiology, Radiologist, - 09/28/2023 [place] [address] Mammography Report Signed Patient: SHARLENE HUMPHREYS AMR#: [id number] : 1970Acct:[id number] Age/Sex: 52 / FADM Date: 09/28/23 Loc: MAMMO Attending Dr: Janene Lew NP Ordering Physician: Janene Lew NPResults: Date of Service: 09/28/23Follow Up: Procedure(s): MM tomosynthesis screening BI Accession Number(s): [id number] cc: Janene Lew NP Patient Name: SHARLENE HUMPHREYS MR#: [id number] : 1970 Exam Date: 09/28/2023 Ordering Doctor: AGUSTINA Lew AIRLINE CUSTOMER SERVICE AGENT RADIOLOGY REPORT PROCEDURE: MM TOMOSYNTHESIS SCREENING BI COMPARISON: MG MAMM SCREEN 3D ORESTES CAD, 12/30/2020. MG MAMM SCREEN 3DBIL CAD, 03/29/2022. INDICATIONS: Screening Calculator Name NCI Breast Cancer Risk Assessment Tool 5 Year Breast Cancer Risk 1.10% Lifetime Breast Cancer Risk 8.80% Personal Breast Cancer No Personal Ovarian Cancer No Treatments None Family Cancers Mother with head/neck cancer at age 73. LOCATION: The [facility] BREAST COMPOSITION: There are scattered [...] M.D. Signed By:09/28/23 1050 DD/ 1049 TD/TT: Health Program Specialist: us Janene Lew NP [facility] Final Result documented in this encounter Visit Diagnoses Not on filedocumented in this encounter Additional Health Concerns Assessment Noted Time PHQ-9 Depression Total Score: 16 05/03/ 024 1:18 PM EST documented as of this encounter Care Teams Wealth Management Advisor Relationship Specialty Start Date End Date Markel Braxton MD PCP - General Family Medicine 05/03/23 Janene Lew NP [address] [place] [address] PCP - [employer] 09/15/23 documented as of this encounter
--- OUTSIDE RECORDS SUMMARY | 2024-12-31 10:02 | XMS_ITS | Clinical Summary ---
Author Organization [facility] Address [address] [place] [address] Care Team Providers Care Drum Printer Name Role Phone Markel Braxton MD Primary Care Provider Allergies Active Allergy Reactions Criticality Noted Date [...] 1 capsule by mouth Daily 024 Active FLUoxetine (PROzac) 40 MG capsule Take 40 mg by mouth Daily 025 Active amLODIPine (Norvasc) 10 MG tabletIndications :Primary hypertension Take 1 tablet (10 mg) by mouth Daily 90 tablet 1 025 Active FLUoxetine (PROzac) 20 MG capsule Take 20 mg by mouth Daily TAKE 1 CAPSULE BY MOUTH ONCE DAILY TAKE WITH 40 MG FOR A TOTAL OF 60 MG DAILY 025 Active glucose blood (True Metrix Blood Glucose Test) test stripIndications: Type 2 diabetes mellitus without complication, without long-term current use of insulin ([facility]) Checking bg levels once a day 100 strip 3 Active Lancets 33G miscIndications:T ype 2 diabetes mellitus without complication, without long-term current use of insulin ([facility]) Checking bg levels once a day 100 each 3 025 Active tiZANidine (Zanaflex) 4 MG tabletIndications :Muscle spasm Take 1 tablet (4 mg) by mouth every 8 (eight) hours if needed for muscle spasms 90 tablet 1 025 Active rOPINIRole (Requip) 0.25 MG tabletIndications :Restless leg syndrome Take 1 tablet (0.25 mg) by mouth at bedtime 90 tablet 025 2024 Active Tirzepatide (Mounjaro) 7.5 MG/0.5ML solution auto-injectorIndi cations:Type 2 diabetes mellitus with other circulatory complications ([facility]) INJECT 7.5MG SUBCUTANEOUSLY ONCE A WEEK 2 mL 2 025 Active Blood Glucose Monitoring Suppl (True Metrix Meter) w/Device kitIndications:Ty pe 2 diabetes mellitus without complication, without long-term current use of insulin ([facility]) USE 1 TO CHECK GLUCOSE ONCE DAILY 1 kit 025 Active gabapentin (Neurontin) 600 MG tabletIndications :Restless leg syndrome Take 1 tablet (600 mg) by mouth 2 (two) times a day as needed (RLS) 60 tablet 2 025 2024 Active gabapentin (Neurontin) 600 MG tabletIndications :Restless leg syndrome Take 1 tablet (600 mg) by mouth 2 (two) times a day as needed (RLS) 60 tablet 2 025 2024 Discontinued Active Problems Problem Noted [...] EST): Would like a referral to podiatry [facility] if possible Spinal stenosis of thoracolumbar region 04/30/19 [facility] 04/30/2023 Assessment & Plan (03/06/2024 9:57 [...] they have any problems or questions. Sharlene Hovland control is stable overall. , Discussed dietary [...] Encounters Date Type Department Care Team Description 12/15/2024 Travel 12/06/2024 Clinisync Result Encounter [facility] External Department Unsolicited Provider, Generic External Data 12/06/2024 Refill [facility] [address] [place] [phone] Janene Lew NP Restless leg syndrome 11/30/2024 Refill [facility] [address] [place] [address] Marya Madrid, DO Type 2 diabetes mellitus without complication, without long-term current use of insulin (HCC) 11/28/2024 Refill [facility] [address] [place] [address] Marya Madrid, DO Type 2 diabetes mellitus with other circulatory complications (HCC) 11/25/2024 Abstract [facility] [address] [place] [place] [address] Janene Lew NP 11/25/2024 Orders Only [facility] [address] [place] [address] 11/21/2024 Refill [facility] [address] [place] [address] Janene Lew NP Restless leg syndrome 11/18/2024 Travel 11/17/2024 Clinisync Result Encounter [facility] External Department Unsolicited Provider, Generic External Data 11/17/2024 Abstract [facility] [address] [place] [address] Janene Lew NP 11/11/2024 Refill [facility] [address] [place] [address] Janene Lew NP Muscle spasm 11/03/2024 9:45 AM EDT Office Visit [facility] [address] [place] [phone] Marya Madrid, Type 2 diabetes mellitus with other circulatory [...] (BMI) of 36.0 to 36.9 in adult ([facility]) 11/03/2024 Bamboo flowsheet [facility] [address] [place] [phone] Marya Madrid DO 11/03/2024 Travel 10/28/2024 Travel 10/08/2024 Refill [facility] [address] [place] [address] Marya Madrid, Type 2 diabetes mellitus with other circulatory complications (HCC) 10/07/2024 Clinisync Result Encounter [facility] External Department Unsolicited Provider, Generic External Data 10/07/2024 Abstract [facility] [address] [facility] [place] [address] Janene Lew NP 10/07/2024 Abstract [facility] [address] [place] [address] Janene Lew NP 10/07/2024 Clinisync Result Encounter [facility] External Department Unsolicited Provider, Generic External Data 10/07/2024 Clinisync Result Encounter [facility] External Department Unsolicited Provider, Generic External Data from Last 3 Months Immunizations Immunization Administration [...] any clubs o r organizations such as presybeterian groups, unions, fraternal or athletic groups, or [...] Recorded Patient Health Questionnaire-2 Score 0 11/03/2024 [facility] - Occupational [...] money to buy more. Often true 11/19/19 Within the past 12 months, t he [...] place to sleep or slept in a detention (including now)? Yes 05/02/2023 Housing Stability Vital [...] were you homeless or living in a detention (including now)? No 11/18/2024 Comments Unknown Sex [...] [address] [place] [phone] Marya Madrid DO [address] [place] [address] Health Maintenance Due Date Last Done Comments [...] Procedure Name Priority Date/Time Associated Diagnosis Comments ALL BASIC METABOLIC PANEL Routine 12/06/2024 10:44 AM EDT ALL CBC WITH AUTO DIFF Routine 10:44 AM EDT XR CHEST 2 VIEWS Routine 11/25/2024 7:52 [...] Recently Relevant to Health Maintenance Results * (ABNORMAL) ALL CBC WITH AUTO DIFF (12/06/2024 10:44 AM EDT) Only the most recent of2 resultswithin the time period is included. [facility] WBC 5.8 4.0 - 11.0 10 3/uL [facility] TB[facility] RBC 3.99(L) 4.20 - 5.40 10 6/uL TBH TBH HGB 11.9(L) 12.0 - 16.0 g/dL TBH TBH HCT 37.0 36.0 - 48.0 % TBH TBH MCV 92.7 81.0 - 99.0 fL TBH TBH MCH 29.8 26.7 - 34.0 pg TBH TBH MCHC 32.2 29.9 - 35.2 g/dL TBH TBH RDW 13.1 11.0 - 15.0 % TBH TBH PLT 282 150 - 450 10 3/uL TBH TBH MPV 10.8 9.5 - 13.5 fL TBH NEUTROPHILS PERCENT AUTO 66.1 43.0 - 75.0 % TBH LYMPHOCYTES PERCENT AUTO 24.4 20.5 - 60.0 % TBH MONOCYTES PERCENT AUTO 5.2 1.7 - 12.0 % TBH TBH EO % 3.1 0.9 - 7.0 % TBH BASOPHILS PERCENT AUTO 1.0 0.2 - 2.0 % TBH IMMATURE GRANULOCYTES PCT AUTO 0.2 0.0 - 0.5 % TBH NEUTROPHILS ABSOLUTE AUTO 3.8 1.4 - 6.5 10 3/uL TBH LYMPHOCYTES ABSOLUTE AUTO 1.4 1.2 - 3.8 10 3/uL TBH MONOCYTES ABSOLUTE AUTO 0.3 0.3 - 0.8 10 3/uL TBH TBH EO # 0.2 0.0 - 0.7 10 3/uL TBH BASOPHILS ABSOLUTE AUTO 0.1 0.0 - 0.1 10 3/uL TBH IMMATURE GRANULOCYTES ABS AUTO 0.01 0.00 - 0.03 10 3/uL [facility] 12/06/2024 10:4 4 AM EDT 12/06/2024 10:45 AM EDT Narrative CLINISYNC - 12/06/2024 10:51 AM EDT Generic External Data Provider [facility]IN[facility] F inal Result DEX TB * (ABNORMAL) ALL BASIC METABOLIC PANEL (12/06/2024 10:44 AM EDT) Only the most recent of2 resultswithin the time period is included. SODIUM 142 136 - 145 mmol/L TBH POTASSIUM 4.0 3.5 - 5.1 mmol/L TBH CHLORIDE 108(H) 98 - 107 mmol/L TBH CARBON DIOXIDE 23.9 21.0 - 32.0 mmol/L TBH ANION GAP 14.1 TBH GLUCOSE 108(H) 74 - 106 mg/dL TBH BLOOD UREA NITROGEN 27.0(H) 7.0 - 18.0 mg/dL TBH CREATININE 1.07(H) 0.55 - 1.02 mg/dL TBH TBH EGFR-AF VIETNAMESE >60 >=60 mL/min/1.7 3m 2 TBH TBH EGFR-NON AF VIETNAMESE 54(L) >=60 mL/min/1.7 3m 2 TBH BUN CREATININE RATIO 25.2 TBH CALCIUM 9.3 8.5 - 10.1 mg/dL TBH 12/06/2024 10:4 4 AM EDT 12/06/2024 10:45 AM EDT Narrative [facility]IN[facility]NC - 12/06/2024 11:12 AM EDT Generic External Data Provider CLINISYNC F inal Result DEX TB * XR chest 2 views (11/25/2024 7:52 AM EDT) Anatomical Region Laterality Modality Chest Radiographic Rowan ging [facility] IMG XR PROCEDURES Final Result * NM MALIK PERF SPECT REST STR (11/17/2024 10:01 AM EDT) Anatomical Region Laterality Modality Other 11/17/2024 10:0 1 AM EDT Narrative 11/17/2024 10:02 [place] [address] Nuclear Medicine Report Signed Patient: SHARLENE HUMPHREYS MR#: [id number] : 1970 Acct:[id number] Age/Sex: 53 / F ADM Date: 11/13/24 Loc: NM Attending Dr: Tk Espinoza M.D. Ordering Physician: Tk Espinoza M.D. Date of Service: 11/13/24 Procedure(s): NM malik perf SPECT rest str Accession Number(s): [id number] cc: Janene Lew NP; Tk Espinoza M.D. Patient Name: SHARLENE HUMPHREYS MR#: [id number] : 1970 Exam Date: 11/13/2024 Ordering Doctor: [...] the study was pending per attending physician [facility] . For more details please see [...] Signed By: 11/17/24 1002 DD/ 1001 TD/TT: Varying Exceptionalities Teacher: Procedure Note Radiology, Radiologist, MD - 11/17/2024 [place] [address] Nuclear Medicine Report Signed Patient: SHARLENE HUMPHREYS AMR#: [id number] : 1970Acct:[id number] Age/Sex: 53 / FADM Date: 11/13/24 Loc: [place] Attending Dr: Tk Espinoza M.D. Ordering Physician: Tk Espinoza M.D. Date of Service: 11/13/24 Procedure(s): NM malik perf SPECT rest str Accession Number(s): [id number] cc: Janene Lew TRACING LATHE SET UP OPERATOR; Tk Espinoza M.D. Patient Name: SHARLENE HUMPHREYS MR#: [id number] : 1970 Exam Date: 11/13/2024 Ordering Doctor: [...] the study was pending per attending physician [facility] . For more details pleasesee separate cardiac [...] M.D. Signed By:11/17/24 1002 DD/ 1001 TD/TT: Varying Exceptionalities Teacher: us Generic External Data Provider [facility] IMAGING Final Result * POCT glycosylated hemoglobin (Hb A1C) docked device (11/03/2024 10:14 AM EDT) Hemoglobin A1C 5.2 Blood Venous blood specimen / Unknown 11/03/2024 10:14 AM EDT us Marya Madrid DO POINT OF CARE TEST ENTER/E DIT ORDERABLES Final Result * XR CHEST 2V (10/07/2024 12:59 PM EDT) Anatomical Region Laterality Modality Other 10/07/2024 12:5 9 PM EDT Narrative 10/07/2024 1:02 [place] [address] XRay Report Signed Patient: SHARLENE HUMPHREYS MR#: [id number] : 1970 Acct:[id number] Age/Sex: 53 / F ADM Date: 10/07/24 Loc: PST Attending Dr: Elza Felton M.D. Ordering Physician: Elza Felton M.D. Date of Service: 10/07/24 Procedure(s): XR chest 2V Accession Number(s): [id number] cc: Janene Lew NP; Elza Felton M.D. The [address] [address] Patient Name: SHARLENE HUMPHREYS MRN: [facility]:[id number] date: 1970 Sex: F [facility] Current Patient Location: [facility] Accession/Order Number: [id number] Exam Date: 10/07/2024 12:58 Report Date: 10/07/2024 12:59 At the request of: ELZA FELTON MD Procedure: XR chest 2V Chest 2 views CLINICAL HISTORY: Pre Op COMPARISON: Chest 07/05/2024 FINDINGS: Heart normal in size. Lungs are clear. No free air. XR/XR chest 2V IMPRESSION: NO ACUTE CARDIOPULMONARY ABNORMALITY. Impression dictated by: Kip Mon Jr., D.O. 10/07/2024 12:59 PM Dictation Location: [place] [address] Electronically authenticated by: [id number] Y Date: 10/07/2024 12:59 Dictated By: Kip Mon M.D. Signed By: 10/07/24 1302 DD/ 1259 TD/TT: Varying Exceptionalities Teacher: Procedure Note Radiology, Radiologist, MD - 10/07/2024 The [place] [id number] XRay Report Signed Patient: SHARLENE HUMPHREYS AMR#: [id number] : 1970Acct:[id number] Age/Sex: 53 / FADM Date: 10/07/24 Loc: [facility] Attending Dr: Elza Felton M.D. Ordering Physician: Elza Felton M.D. Date of Service: 10/07/24 Procedure(s): XR chest 2V Accession Number(s): [id number] cc: Janene Lew NP; Elza Felton M.D. [address] [address] Patient Name: SHARLENE HUMPHREYS MRN: [facility]:[id number] date: 1970 Sex: F Assigned [facility] Current Patient Location: [facility] Accession/Order Number: [id number] Exam Date: 10/07/2024 12:58 Report Date: 10/07/2024 12:59 At the request of: ELZA FELTON MD Procedure: XR chest 2V Chest 2 views CLINICAL HISTORY: Pre Op COMPARISON: Chest 07/05/2024 FINDINGS: Heart normal in size. Lungs are clear. No free air. XR/XR chest 2V IMPRESSION: NO ACUTE CARDIOPULMONARY ABNORMALITY. Impression dictated by: Kip Mon Jr., D.O. 10/07/2024 12:59 PM Dictation Location: [place] [address] Electronically authenticated by: [id number] Y Date: 2:59 Dictated By: Kip Mon M.D. Signed By:10/07/24 1302 DD/ 1259 TD/TT: Varying Exceptionalities Teacher: Generic External Data Provider [facility] IMAGING Final Result * SRMCOH PROTHROMBIN TIME [...] External Data Provider CLINISYNC F inal Result [facility] * CCF APTT (10/07/2024 12:06 PM EDT) PARTIAL THROMBOPLASTIN TIME 28.0 22.3 - 36.2 sec [facility] 10/07/2024 12:0 6 PM EDT 10/07/2024 12:14 PM EDT Narrative DEX - 10/07/2024 1:24 PM EDT us Generic External Data Provider DEX F inal Result DEX [facility] * ECG 12-LEAD (10/07/2024 10:01 AM EDT) Anatomical Region Laterality Modality Other 10/07/2024 10:0 1 AM EDT Narrative 10/07/2024 9:54 [place] [address] Electrocardiograph Report Signed Patient: SHARLENE HUMPHREYS MR#: [id number] : 1970 Acct:[id number] Age/Sex: 53 / F ADM Date: 10/07/24 Loc: [facility] Attending Dr: Elza Felton M.D. Ordering Physician: Elza Felton M.D. Date of Service: 10/07/24 Procedure(s): ECG 12 lead Accession Number(s): [id number] cc: [facility] Test Date: 2024-10-07 Pat Name: SHARLENE HUMPHREYS Department: Room: - Gender: Female Pellet Post Inspector: : 1970 Requested By: 1822 Order Number: [id number] Maryjo MD: LITO EDEN M.D. Measurements Intervals [place] Rate: 51 P: 30 WV: 182 QRS: -16 QRSD: 105 T: 0 [...] M.D. Dictated By: LITO EDEN Signed By: 10/07/242153 DD/ 1001 TD/TT: Varying Exceptionalities Teacher: Procedure Note Radiology, Radiologist, MD - 10/07/2024 [place] [address] Electrocardiograph Report Signed Patient: SHARLENE HUMPHREYS AMR#: [id number] : 1970Acct:[id number] Age/Sex: 53 / FADM Date: 10/07/24 Loc: [facility] Attending Dr: Elza Felton M.D. Ordering Physician: Elza Felton M.D. Date of Service: 10/07/24 Procedure(s): ECG 12 lead Accession Number(s): [id number] cc: [facility] Test Date: 2024-10-07 Pat Name: SHARLENE HUMPHREYS Department: Room: - Gender: Female Pellet Post Inspector: : 1970 Requested By: 1822 Order Number: [id number] Reading MD: LITO EDEN M.D. Measurements Intervals [place] Rate: 51 P: 30 WV: 182 QRS: -16 QRSD: 105 T: 0 [...] EDEN M.D. Dictated By: LITO EDEN Signed By:10/07/242153 DD/ 100 TD/TT: Varying Exceptionalities Teacher: us Generic External Data Provider [facility] IMAGING Final Result * Colonoscopy (11/01/2023 11:19 AM EDT) Anatomical Region Laterality Modality Endoscopy Jhonathan Ashley MD ENDOSCOPY PROCEDURE ORDERABL ES Final Result * MM TOMOSYNTHESIS SCREENING BI (09/28/2023 10:49 AM EDT) Anatomical Region Laterality Modality Other 09/28/2023 10:4 9 AM EDT Narrative 09/28/2023 10:50 [place] [address] Mammography Report Signed Patient: SHARLENE HUMPHREYS MR#: [id number] : 1970 Acct:[id number] Age/Sex: 52 / F ADM Date: 09/28/23 Loc: MAMMO Attending Dr: aJnene Lew NP Ordering Physician: Janene Lew NP Results: Date of Service: 09/28/23 Follow Up: Procedure(s): MM tomosynthesis screening BI Accession Number(s): [id number] cc: Janene Lew NP Patient Name: SHARLENE HUMPHREYS MR#: [id number] : 1970 Exam Date: 09/28/2023 Ordering Doctor: [...] head/neck cancer at age 73. LOCATION: [facility] BREAST COMPOSITION: There are scattered areas [...] Signed By: 09/28/23 1050 DD/ 1049 TD/TT: Varying Exceptionalities Teacher: Procedure Note Radiology, Radiologist, MD - 09/28/2023 [place] [address] Mammography Report Signed Patient: SHARLENE HUMPHREYS AMR#: [id number] : 1970Acct:[id number] Age/Sex: 52 / FADM Date: 09/28/23 Loc: MAMMO Attending Dr: Janene Lew NP Ordering Physician: Janene Lew NPResults: Date of Service: 09/28/23Follow Up: Procedure(s): MM tomosynthesis screening BI Accession Number(s): [id number] cc: Janene Lew NP Patient Name: SHARLENE HUMPHREYS MR#: [id number] : 1970 Exam Date: 09/28/2023 Ordering Doctor: [...] head/neck cancer at age 73. LOCATION: [facility] BREAST COMPOSITION: There are scattered areas [...] M.D. Signed By:09/28/23 1050 DD/ 1049 TD/TT: Varying Exceptionalities Teacher: us Janene Lew TRACING LATHE SET UP OPERATOR [facility] IMAGING Final Result from Last 3 Months or Most Recently Relevant to Health Maintenance Insurance [facility] Care Teams Drum Printer Relationship Specialty Start Date End Date Markel Braxton MD PCP - General Family Medicine 05/03/23
--- OUTSIDE RECORDS SUMMARY | 2024-12-31 10:02 | XMS_ITS | Encounter Summary ---
Author Organization [facility] Address [address] [place] [address] Care Team Providers Care Pipe Out Worker Name Role Phone Markel Braxton MD Primary Care Provider [phone] Janene Lew NP Unavailable [phone] Encounter Details Date Type Department Care [...] week 05/02/2023 How often do you attend congregation or sabianist serv ices? Never 05/02/2023 Do you belong to any clubs o r organizations such as congregation groups, unions, fraternal or athletic groups, or [...] Recorded Patient Health Questionnaire-2 Score 0 09/20/2023 [facility] - [facility] Stress Questionnaire Answer [...] place to sleep or slept in a skilled nursing (including now)? Yes 05/02/2023 Comments Unknown Sex [...] [address] [place] [address] Marya Loya DO [address] [place] [address] documented as of this encounter Procedures Procedure Name Priority Date/Time Associated Diagnosis Comments MR LUMBAR SPINE WO CON 02/01/2024 7:33 AM EDT documented in this encounter Results * MR LUMBAR SPINE WO CON (02/01/2024 7:33 AM EDT) Anatomical Region Laterality Modality Other 02/01/2024 7:33 AM EDT Narrative 02/01/2024 7:36 AM EDT The [place] [id number] Magnetic Resonance Report Signed Patient: SHARLENE HUMPHREYS MR#: [id number] : 1970 Acct:[id number] Age/Sex: 53 / F ADM Date: 01/31/24 Loc: MRI Attending Dr: Elizabeth Diamond NP Ordering Physician: Elizabeth Diamond NP Date of Service: 01/31/24 Procedure(s): MR lumbar spine wo con Accession Number(s): [id number] cc: Janene Lew EVALUATOR TRANSFER STUDENTS; Elizabeth Diamond NP [place] [address] Patient Name: SHARLENE HUMPHREYS MRN: [id number]:[id number] date: 1970 Sex: F Assigned Patient Location: MRI Current Patient Location: Accession/Order Number: [id number] Exam Date: 01/31/2024 10:00 Report Date: 02/01/2024 [...] Dictated By: Alex Allen M.D. Signed By: 02/01/24 0736 DD/ 0733 TD/TT: Screen Handler: Procedure Note Radiology, Radiologist, - 02/01/2024 [place] [address] Magnetic Resonance Report Signed Patient: SHARLENE HUMPHREYS AMR#: [id number] : 1970Acct:[id number] Age/Sex: 53 / FADM Date: 01/31/24 Loc: MRI Attending Dr: Elizabeth Diamond NP Ordering Physician: Elizabeth Diamond NP Date of Service: 01/31/24 Procedure(s): MR lumbar spine wo con Accession Number(s): [id number] cc: Janene Lew EVALUATOR TRANSFER STUDENTS; Elizabeth Diamond NP The [place] [address] Patient Name: SHARLENE HUMPHREYS MRN: [id number] date: 1970 Sex: F Assigned Patient Location: MRI Current Patient Location: Accession/Order Number: [id number] Exam Date: 01/31/2024 10:00 Report Date: 02/01/2024 [...] 07:33 Dictated By: Alex Allen M.D. Signed By:02/01/24735 DD/ 2 TD/TT: Screen Handler: us Generic External Data Provider [facility] IMAGING Final Result documented in this encounter Visit Diagnoses Not on filedocumented in this encounter Additional Health Concerns Assessment Noted Time PHQ-9 Depression Total Score: 16 024 1:18 PM EST documented as of this encounter Care Teams Pipe Out Worker Relationship Specialty Start Date End Date Markel Braxton MD PCP - General Family Medicine 05/03/23 Janene Lew NP [address] [facility] [facility] [place] [address] PCP - [place] [employer] 09/15/23 documented as of this encounter
--- OUTSIDE RECORDS SUMMARY | 2024-12-31 10:02 | XMS_ITS | Encounter Summary ---
Author Organization [facility] Address [address] [place] [address] Care Team Providers Care Field Representative Name Role Phone Markel Braxton MD Primary Care Provider [phone] Encounter Details Date Type Department Care Team (Late st Contact Info) Description 10/07/2024 Abstract [facility] [address] [facility] [place] [address] Janene Lew, [employer] [address] [place] [address] Social History Tobacco Use Types Packs/Day Years [...] week 05/02/2023 How often do you attend nondenominational or religion serv ices? Never 05/02/2023 Do you belong to any clubs o r organizations such as nondenominational groups, unions, fraternal or athletic groups, or [...] Recorded Patient Health Questionnaire-2 Score 0 06/16/2024 [facility] - Occupational Stress Questionnaire Answer [...] place to sleep or slept in a retirement (including now)? Yes 05/02/2023 Comments Unknown Sex [...] [address] [place] [address] Marya Loya, [address] [place] [address] documented as of this encounter Visit Diagnoses Not on filedocumented in this encounter Additional Health Concerns Assessment Noted Time PHQ-9 Depression Total Score: 16 024 1:18 PM EST documented as of this encounter Care Teams Field Representative Relationship Specialty Start Date End Date Markel Braxton MD PCP - General Family Medicine 05/03/23 documented as of this encounter
--- OUTSIDE RECORDS SUMMARY | 2024-12-31 10:02 | XMS_ITS | Encounter Summary ---
Author Organization [facility] Address [address] [place] [address] Care Team Providers Care Crusher Supervisor Name Role Phone Markel Braxton MD Primary Care Provider [phone] Janene Lew NP Unavailable [phone] Encounter Details Date Type Department Care Team (Late st Contact Info) Description 11/01/2023 Orders Only [facility] [address] [address] Jhonathan Clemente MD [address] [facility] [address] [place] [address] Social History Tobacco Use Types [...] How often do you attend anabaptism or adventist serv ices? Never 05/02/2023 Do you belong [...] Recorded Patient Health Questionnaire-2 Score 0 09/20/2023 [facility]at ional Health - Occupational [...] [address] [place] [address] Marya Loya, [address] [place] [address] documented as of this encounter Procedures Procedure [...] documented as of this encounter Care Teams Crusher Supervisor Relationship Specialty Start Date End Date Markel Braxton MD PCP - General Family Medicine 05/03/23 Janene Lew NP [address] [place] [address] PCP - [place] [employer] 09/15/23 documented as of this encounter
--- OUTSIDE RECORDS SUMMARY | 2024-12-31 10:02 | XMS_ITS | Encounter Summary ---
Author Organization [facility] Address [address] [place] [address] Care Team Providers Care Workgroup Leader Name Role Phone Markel Braxton MD Primary Care Provider [phone] Encounter Details Date Type Department Care Team (Late st Contact Info) Description 10/07/2024 Abstract [facility] [address] [facility] [place] [address] Janene Lew, [employer] [address] [place] [address] Social History Tobacco Use Types Packs/Day Years [...] week 05/02/2023 How often do you attend latter-day or yazdanism serv ices? Never 05/02/2023 Do you belong to any clubs o r organizations such as latter-day groups, unions, fraternal or athletic groups, or [...] Recorded Patient Health Questionnaire-2 Score 0 06/16/2024 [facility] - Occupational Stress Questionnaire Answer Date [...] [address] [place] [id number] Marya Loya, [address] [place] [address] documented as of this encounter Visit Diagnoses Not on filedocumented in this encounter Additional Health Concerns Assessment Noted Time PHQ-9 Depression Total Score: 16 024 1:18 PM EST documented as of this encounter Care Teams Workgroup Leader Relationship Specialty Start Date End Date Markel Braxton MD PCP - General Family Medicine 05/03/23 documented as of this encounter
--- OUTSIDE RECORDS SUMMARY | 2024-12-31 10:10 | XMS_ITS | CCD ---
Author Organization [facility] Care Team Providers Care Insect Control Aide Name Role Phone Peng Merino Admitting Unavailable Peng Merino Attending Unavailable GEOVANNI BRUNNER Primary Care Unavailable HAMMAD LING Referring Unavailabl e [place] Procedure Practitioner Unavailab TK [place] Surgeon Unavailable Christian Hamilton Unavailable Janene Lew Primary Care Provider [phone] MD Christian Hamilton Attending Provider ELIER Bolivar Attending Provider Emma Bolivar Unavailable Halle Mac Unavailable Janene Lew Primary Care Provider [phone] STU Hernandez-LYNNE Antunez Emergency Provider Ivan Sams Unavailable AICHHOLZ, TRAILER SECTIONS ASSEMBLER JANENE Consulting Unavailable AICHHOLZ, TRAILER SECTIONS ASSEMBLER JANENE Attending Unavailable AICHHOLZ, TRAILER SECTIONS ASSEMBLER JANENE Admitting Unavailable AICHHOLZ, TRAILER SECTIONS ASSEMBLER JANENE Primary Care Unavailable AICHHOLZ, TRAILER SECTIONS ASSEMBLER JANENE Consulting Unavailable AICHHOLZ, TRAILER SECTIONS ASSEMBLER JANENE Attending Unavailable AICHHOLZ, TRAILER SECTIONS ASSEMBLER JANENE Admitting Unavailable AICHHOLZ, TRAILER SECTIONS ASSEMBLER JANENE Primary Care Unavailable AICHHOLZ, TRAILER SECTIONS ASSEMBLER JANENE Primary Care Unavailable AICHHOLZ, TRAILER SECTIONS ASSEMBLER JANENE Consulting Unavailable AICHHOLZ, TRAILER SECTIONS ASSEMBLER JANENE Admitting Unavailable AICHHOLZ, TRAILER SECTIONS ASSEMBLER JANENE Attending Unavailable AYDIN Carrillo, DR MIGUEL Attending Unavailable AYDIN Carrillo, DR MIGUEL Admitting Unavailable AYDIN Carrillo, DR MIGUEL Consulting Unavailable AICHHOLZ, TRAILER SECTIONS ASSEMBLER JANENE Primary Care Unavailable AICHHOLZ, TRAILER SECTIONS ASSEMBLER JANENE Primary Care Unavailable DWAYNE FRIEDMAN Admitting Unavailable DWAYNE FRIEDMAN Attending Unavailable CLEMENT PLUMMER Consulting Unavailable Wan Jenkins Consulting Unavailable AICHHOLZ, TRAILER SECTIONS ASSEMBLER JANENE Primary Care Unavailable EVON TRAMMELL Attending Unavailable EVON TRAMMELL Admitting Unavailable EVON TRAMMELL Consulting Unavailable LUZ COELLO Consulting Unavailable NATHAN COLE Consulting Unavailable LIN GARRETT Consulting Unavailable AICHHOLZ, TRAILER SECTIONS ASSEMBLER JANENE Primary Care Unavailable AICHHOLZ, TRAILER SECTIONS ASSEMBLER JANENE Admitting Unavailable AICHHOLZ, TRAILER SECTIONS ASSEMBLER JANENE Attending Unavailable DR ALEX ALLEN V Consulting Unavailable AICHHOLZ, TRAILER SECTIONS ASSEMBLER JANENE Consulting Unavailable AICHHOLZ, TRAILER SECTIONS ASSEMBLER JANENE Consulting Unavailable AICHHOLZ, TRAILER SECTIONS ASSEMBLER JANENE Attending Unavailable AICHHOLZ, TRAILER SECTIONS ASSEMBLER JANENE Admitting Unavailable AICHHOLZ, TRAILER SECTIONS ASSEMBLER JANENE Primary Care Unavailable DR KATHY LOBATO Consulting Unavailable AICHHOLZ, TRAILER SECTIONS ASSEMBLER JANENE Attending Unavailable AICHHOLZ, TRAILER SECTIONS ASSEMBLER JANENE Admitting Unavailable AICHHOLZ, TRAILER SECTIONS ASSEMBLER JANENE Primary Care Unavailable DR ALEX ALLEN V Consulting Unavailable AICHHOLZ, TRAILER SECTIONS ASSEMBLER JANENE Consulting Unavailable AICHHOLZ, TRAILER SECTIONS ASSEMBLER JANENE Consulting Unavailable AICHHOLZ, TRAILER SECTIONS ASSEMBLER JANENE Primary Care Unavailable AICHHOLZ, TRAILER SECTIONS ASSEMBLER JANENE Attending Unavailable AICHHOLZ, TRAILER SECTIONS ASSEMBLER JANENE Admitting Unavailable AICHHOLZ, TRAILER SECTIONS ASSEMBLER JANENE Primary Care Unavailable AICHHOLZ, TRAILER SECTIONS ASSEMBLER JANENE Admitting Unavailable AICHHOLZ, TRAILER SECTIONS ASSEMBLER JANENE Consulting Unavailable AICHHOLZ, TRAILER SECTIONS ASSEMBLER JANENE Attending Unavailable DR KATHY LOBATO Consulting Unavailable AICHHOLZ, TRAILER SECTIONS ASSEMBLER JANENE Primary Care Unavailable BAKHOUS, AZIZ Admitting Unavailable BAKHOUS, AZIZ Attending Unavailable AICHHOLZ, TRAILER SECTIONS ASSEMBLER JANENE Attending Unavailable AICHHOLZ, TRAILER SECTIONS ASSEMBLER JANENE Admitting Unavailable AICHHOLZ, TRAILER SECTIONS ASSEMBLER JANENE Primary Care Unavailable AICHHOLZ, TRAILER SECTIONS ASSEMBLER JANENE Primary Care Unavailable AICHHOLZ, TRAILER SECTIONS ASSEMBLER JANENE Consulting Unavailable AICHHOLZ, TRAILER SECTIONS ASSEMBLER JANENE Attending Unavailable AICHHOLZ, TRAILER SECTIONS ASSEMBLER JANENE Admitting Unavailable DR KATHY LOBATO Consulting Unavailable AICHHOLZ, TRAILER SECTIONS ASSEMBLER JANENE Primary Care Unavailable AICHHOLZ, TRAILER SECTIONS ASSEMBLER JANENE Admitting Unavailable AICHHOLZ, TRAILER SECTIONS ASSEMBLER JANENE Attending Unavailable AICHHOLZ, TRAILER SECTIONS ASSEMBLER JANENE Consulting Unavailable AICHHOLZ, TRAILER SECTIONS ASSEMBLER JANENE Primary Care Unavailable AMBER ., DOLORES Attending Unavailable AMBER ., DOLORES Admitting Unavailable RAMIREZ ., MR LIN Consulting Unavailable AMBER ., DOLORES Consulting Unavailable ALEX AVINA Consulting Unavailable AICHHOLZ, TRAILER SECTIONS ASSEMBLER JANENE Primary Care Unavailable JP, EVON Attending Unavailable JP, EVON Admitting Unavailable JP, EVON Consulting Unavailable Aichholz, Janene J Primary Care Provider MD Valdmear Alonso Attending Provider MD Fauzia Huffman Attending Provider UnavailMD Halle Felton Referring Provider [phone] MARKEL HAQ Primary Care Unavailable Aichholz, Janene J Attending Unavailable Aichholz, Janene J Admitting Unavailable Aichholz, Janene J Primary Care Provider MD Fauzia Huffman Attending Provider UnavailMD Halle Felton Referring Provider [phone] MD Halle Mac Attending Provider EmirufusRadhaa J Primary Care Provider [phone] MD Valdemar Alonso Attending Provider MD Alma Deng Admit Provider [phone] MD [facility] Other Provider MD Fernando Rosenberg Attending Provider MD Valdemar Alonso Attending Provider MD Valdemar Alonso Attending Provider [phone] MD Ban Clemente Attending Provider Man SHARMA, Marcella Haywood Attending Unavailable Girenee SHARMA, Andrius Vytautchuck Attending Unavailable Girenee SHARMA, Andrius Vytkailyn Attending Unavailable Girenee SHARMA, Marcella Haywood Attending Unavailable Giedraitis MD, Marcella Haywood Attending Unavailable Markel Haq MD Primary Care Provider Louann ELECTRIC MOTOR ASSEMBLER AND TESTER, Janene Unavailable MARYA CASTORENA Attending Unavailable AICHHOLZ, JANENE Attending Unavailable BAN ARTIS Attending Unavailable PETZNICK, MARYA M Attending Unavailable AICHHOLZ, JANENE Referring Unavailable AICHHOLZ, JANENE Attending Unavailable PETZNICK, MARYA M Attending Unavailable PETZNICK, MARYA M Attending Unavailable AICHHOLZ, JANENE Attending Unavailable Aichholz, Janene J Primary Care Provider [phone] Celeste SHARMA, Valdemar Attending Provider [phone] Bubba SHARMA, Halle Attending Provider Bakhoumynor, Aziz Admitting Unavailable Bakhoumynor, Aziz Attending Unavailable Aichholrufus, Janene J Primary Care Unavailable Bakhous, Aziz Attending Unavailable Aichholz, Janene J Primary Care Unavailable Bakhous, Aziz Admitting Unavailable Aichholz, Janene J Primary Care Unavailable Celeste, Valdemar Admitting Unavailab le Shantal Alonsoelrahman Attending Unavailab le ELTAHAWY, EHAB Attending Unavailable ELTAHAWY, EHAB Attending Unavailable ELTAHAWY, EHAB Admitting Unavailable ELTAHAWY, EHAB Attending Unavailable ELTAHAWY, EHAB Referring Unavailable ELTAHAWY, EHAB Referring Unavailable Kanani DMD, Joshua Unavailable Unavailable Janene Lew Attending Provider Kanani DMD, Joshua Attending Unavailable Allergies Allergy Classification Reported Allergen(s) Allergy Type Date of Onset Reaction(s) Facility (2 sources) Cephalexin Drug Allergy 10-06-19 10 [facility] Repository (2 sources) Levamisole Drug Allergy 05-22-19 13 [facility] (2 sources) Omeprazole; Translations: [OMEPRAZOLE] Drug Allergy 04-20-19 16 [facility] (14 sources) Prochlorperazine Drug Allergy 10-06-19 10 Unknown [facility] (14 sources) Sulfamethoxazole / Trimethoprim Drug Allergy 10-06-19 10 Unknown [facility] (12 sources) Penicillins (Antibiotic) Propensity to adverse reactions Unknown [facility] Other (20 sources) Promethazine; Translations: [PROMETHAZINE] Drug Allergy 06-28-19 14 Unknown, Seizure [facility] (20 sources) empagliflozin; Translations: [empagliflozin] Drug Allergy 08-11-19 22 Unknown Reaction [facility] (20 sources) Penicillins; Translations: [Penicillins] Allergy to substance 06-28-[address] [facility] (20 sources) Prochlorperazine; Translations: [prochlorperazine] Drug Allergy 06-28-19 14 [facility] (20 sources) Sulfamethoxazole; Translations: [sulfamethoxazole] Drug Allergy 06-28-[address] [facility] (12 sources) Trimethoprim; Translations: [trimethoprim] Drug Allergy 08-11-[address] [facility] (1 source) Sulfonamides (Antibiotic) Drug allergy (disorder) 06-10-19 15 [facility] Repository (20 sources) zolpidem; Translations: [zolpidem] Drug Allergy 10-01-19 24 [facility] Comment on above: per pt (20 sources) Cephalexin; Translations: [CEPHALEXIN] Drug Allergy 06-28-19 14 [facility] (20 sources) Esomeprazole Drug Allergy 04-27-19 24 GI intolerance [facility] (20 sources) Omeprazole Drug Allergy 04-27-19 24 GI intolerance [facility] (20 sources) pantoprazole; Translations: [PANTOPRAZOLE] Drug Allergy 06-23-19 17 GI intolerance [facility] (20 sources) Sulfamethoxazole / Trimethoprim; Translations: [SULFAMETHOXAZOLE-T RIMETHOPRIM] Drug Allergy 04-03-20 14 [facility] (1 source) Promethazine Drug Allergy 11-27-19 25 [facility] Repository (1 source) Doxycycline; Translations: [DOXYCYCLINE CALCIUM] Drug Allergy 06-28-19 14 [facility] (1 source) Esomeprazole; Translations: [ESOMEPRAZOLE MAGNESIUM] Drug Allergy 06-23-19 [facility] (1 source) [place]; Translations: [PHENER[place]] Propensity to adverse reactions to drug (disorder) 09-17-19 16 [facility] Medications Current Medications Medication Drug Class(es) Dates Sig (Normalized) Sig (Original) 0.5 ML tirzepatide 15 MG/ML Auto-Injector [Mounjaro] (1 source) inject 1 mg by subcutaneous injection every week Mounjaro 7.5 mg/0.5 mL subcutaneous pen injector inject (7.5MG) by subcutaneous route every week 7.5 MG - Active acetaminophen 325 mg / oxyCODONE hydrochloride 7.5 mg oral tablet (20 sources) Opioid Agonist Start: 10-01-2023 End: 10-16-2023 take 1 tablet by mouth every eight hours as needed for pain Oxycodone-Acetamino phen 7.5-325 mg tablet Active 1 TAB PO Every 8 hours as needed for pain October 16, 2023 1:11pm Complies with drug therapy Start: 06-24-2022 End: 08-15-2023 take 1 tablet by mouth every six hours as needed for pain Oxycodone-Acetaminophen 5-325 mg tablet Discontinued 1 TAB PO Q6H as needed for pain 10 3 June 24, 2022 August 15, 2023 10:12am take 1 tablet by brandin th in the morning oxyCODONE-acetaminophen (Percocet) 7.5-325 MG tablet Take 1 tablet by mouth in the morning and 1 tablet before bedtime. Active [id number] 200 actuat albuterol 0.09 mg/actuat metered dose [...] complication, without long-term current use of insulin ([facility]) 1 each Daily 1 kit 07/02/2023 11/03/2024 Discontinued (Reorder) Start: 07-02-2023 Blood Glucose Monitoring Suppl (True Metrix Air Glucose Meter) w/Device kit Indications: Type 2 diabetes mellitus without complication, without long-term current use of insulin ([facility]) 1 each Daily 1 kit 07/02/2023 Active [...] 1 each Daily 1 kit 07/02/2023 Active Blood Glucose Monitoring Suppl (True Metrix Meter) w/Device kit (2 sources) Start: 12-01-2024 Blood Glucose Monitoring Suppl (True Metrix Meter) w/Device kit Indications: Type 2 diabetes mellitus without complication, without long-term current use of insulin (HCC) USE 1 TO CHECK GLUCOSE ONCE DAILY 1 kit 12/01/2024 Active busPIRone hydrochloride 30 mg oral tablet [...] Discontinued Start: 08-15-2023 take 1 capsule by mo uth once daily Cariprazine 6 mg capsule Active [...] 15, 2023 12:00am November 26, 2024 9:50am cholecalciferol (vitamin D3) 125 mcg (5,000 unit) tablet - Active take 1 capsule by mo uth in the morning cholecalciferol (Vitamin D-3) 125 MCG (5000 UT) capsule Take 5,000 Units by mouth in the morning. Active ciprofloxacin 500 mg oral tablet (14 sources) Quinolone Antimicrobial Start: 12-05-2023 End: 12-15-2023 [...] products docusate sodium 50 mg / sennosides, care home 8.6 mg oral tablet (20 sources) take 2 tablets by mouth once daily sennosides 8.6 mg-docusate sodium 50 mg tablet take 2 tablet by oral route every day 2.00 tablet - Active escitalopram 20 mg oral tablet (13 [...] hours 2 tablet 12/18/2023 02/19/2024 Discontinued FLUoxetine 40 mg oral capsule (20 sources) Serotonin Reuptake Inhibitor Start: 08-21-2024 take 1 capsule by mouth once daily Fluoxetine 40 mg capsule Active 40 MG PO Daily December 16, 2024 12:00am Complies with drug therapy Start: 10-10-2023 End: 09-03-2024 FLUoxetine (PROzac) 20 [...] 5 10/24/2023 Active Start: 06-04-2021 End: 10-16-2023 take 1-2 spray(s) na mariah route once daily as needed fluticasone propionate 50 mcg/actuation nasal spray,suspension spray 1 - 2 spray by intranasal route every day in each nostril as needed 50-100 MCG - Active Fluticasone Prop ionate Active gabapentin 600 mg oral tablet (20 sources) Anti-epileptic Agent Start: 12-08-2024 End: 01-07-2025 take 1 tablet by mouth twice daily as needed gabapentin (Neurontin) 600 MG tablet Indications: Restless leg syndrome Take 1 tablet (600 mg) by mouth 2 (two) times a day as needed (RLS) 60 tablet 2 12/08/2024 01/07/2025 Active Start: 10-23-2023 End: 08-24-2024 take 1 tablet [...] Start: 12-05-2019 take 1 capsule by mo [facility] every twenty-four hours Gabapentin 300 MG 1 capsule Orally Once a day for 30 day(s) Nov, Active End: 12-02-2024 take 1 tablet by mouth every eight hours gabapentin 600 mg tablet take 1 tablet by oral route 3 times every day 600 MG - No Longer Active hydroCHLOROthiazide 12.5 mg oral tablet (1 [...] 2023 10:56am take 1 tablet by brandin every twenty-four hours Isosorbide Mononitrate 10 MG [...] succinate 25 mg extended release oral tablet (19 sources) beta-Adrenergic Seema Start: 06-04-2021 take 2 tablets by mouth once daily Metoprolol Succinate 25 mg tablet extended release 24 hr Active 12.5 MG PO Daily June 04, 2021 1:00am Complies with drug therapy Start: 06-04-2021 take 12.5 mg by mouth once wander ly Metoprolol Succinate Active 12.5 MG PO Daily June 04, 2021 1:00am take 1 tablet by brandin th once daily metoprolol succinate ER 25 mg tablet,extended release 24 hr take 1 tablet by oral route every day 25 MG - Active take 0.5 tablet by m outh once [...] auto-injector (2 sources) Start: 02-10-20 End: 02-19-20 24 Mounjaro 5 MG/0.5ML solution auto-injector inject 5 [...] August 15, 2023 10:05am Start: 06-04-2021 End: 08-15-2023 take 45 mg [...] End: 02-21-2025 take 1 tablet by mouth once daily at bedtime Ropinirole 0.25 mg tablet Active 0.25 MG PO Daily at bedtime March 12, 2024 1:00am Complies with drug therapy Start: 10-24-2023 End: 01-17-2024 take 1 tablet by mouth at bedtime rOPINIRole (Requip) 0.25 MG tablet Indications: Restless leg syndrome Take 1 tablet (0.25 mg) by mouth at bedtime 30 tablet 2 12/18/2023 01/17/2024 Active sacubitril 49 mg / valsartan 51 mg oral tablet (20 sources) Angiotensin 2 Receptor Seema Start: 10-01-2023 End: 12-02-2024 take 0.5 tablet by mouth twice daily [...] equal 1 tab per day. Active Tirzepatide (3 sources) Start: 03-12-2024 Tirzepatide (M ounjaro) 7.5 mg/0.5 mL pen injector Active 7.5 MG SUBCUT every week March 12, 2024 1:00am Complies with drug therapy Start: 03-12-2024 Tirzepatide (Mounjaro) 5 MG/0.5ML solution pen-injector (2 sources) Start: 12-19-2023 End: 01-16-2024 Tirzepatide (Mounjaro) 5 MG/0.5ML solution pen-injector Indications: Type 2 diabetes mellitus with stage 4 chronic kidney disease, without long-term current use of insulin ([facility]) 5 mg by Other route every 7 (seven) days for 28 days 2 mL 3 12/19/2023 01/16/2024 Active Tirzepatide (Mounjaro) 7.5 MG/0.5ML solution auto-injector (20 sources) Start: 11-28-2024 inject 7.5 mg by subcutaneous injection every week Tirzepatide (Mounjaro) 7.5 MG/0.5ML solution auto-injector Indications: Type 2 diabetes mellitus with other circulatory complications (HCC) INJECT 7.5MG SUBCUTANEOUSLY ONCE A WEEK 2 mL 2 11/28/2024 Active Start: 10-08-2024 inject 7.5 mg by sub cutaneous injection [...] 90 tablet 1 11/12/2024 12/12/2024 Active Start: 08-15-2023 End: 10-02-2024 take 1 tablet by mouth every eight hours as needed for muscle spasms and muscle spasms tiZANidine (Zanaflex) 4 MG tablet Indications: Muscle spasm Take 1 tablet (4 mg) by mouth every 8 (eight) hours if needed for muscle spasms 90 tablet 1 09/02/2024 Active Start: 06-04-2021 End: 08-13-2021 take 1 [...] Not-Taking cyclobenzaprine hydrochloride 10 mg oral tablet (11 sources) Muscle Relaxant Start: 08-13-2021 End: 06-24-2022 take 1 tablet by mouth three times daily as needed for muscle spasms Cyclobenzaprine 10 mg tablet Discontinued 10 MG PO Three times daily as needed for back spasms 50 August 13, 2021 12:00am June 24, [...] day Active lamoTRIgine 200 mg oral tablet (12 sources) Mood Stabilizer, Anti-epileptic Agent Start: 08-15-2023 End: 03-12-2024 take 1 tablet by mouth once daily Lamotrigine (Lamictal) 200 mg tablet Discontinued 200 MG PO Daily August 15, 2023 12:00am March 12, 2024 10:32am take 1 tablet by brandin th every twenty-four hours LaMICtal 200 MG 1 tablet Orally Once a day Active lidocaine 0.05 mg/mg medicated patch (9 sources) Antiarrhythmic, Amide Local Anesthetic Start: 06-24-2022 [...] 2023 10:09am methylPREDNISolone 4 mg oral tablet (9 sources) Corticosteroid Start: 06-24-2022 End: 08-15-2023 Methylprednisolone [...] package directions mirtazapine 15 mg oral tablet (12 sources) Start: 06-04-2021 End: 08-15-2023 take 2 tablets by mouth at bedtime Mirtazapine 15 mg tablet Discontinued 30 MG PO Bedtime June 04, 2021 1:00am August 15, 2023 10:11am Start: 06-04-2021 End: 08-15-2023 take 30 mg by mouth at bedtime Mirtazapine Discontinue d 30 MG PO Bedtime June 04, 2021 1:00am August 15, 2023 10:11am Mirtazapine [facility] Active mometasone furoate 0.05 mg/actuat metered dose nasal spray (6 sources) Corticosteroid Start: 10-01-2023 End: 10-16-2023 take [...] Active oxyCODONE hydrochloride 5 mg oral tablet (11 sources) Opioid Agonist Start: 08-13-2021 End: 06-24-2022 take 5-10 mg by mouth every six hours as needed for pain Oxycodone 5 mg Tablet Discontinued 5 - 10 MG PO Q6H as needed for Pain 50 8 August 13, 2021 June 24, 2022 6:53pm pramipexole dihydrochloride 0.25 mg oral tablet (6 sources) Nonergot Dopamine Agonist Start: 10-01-2023 End: 10-16-2023 take 1 tablet by mouth once daily at bedtime Pramipexole 0.25 mg tablet Discontinued 0.25 MG PO Daily at bedtime October 01, 2023 12:00am October 16, 2023 1:12pm predniSONE 10 mg oral tablet (11 sources) Start: 08-13-2021 End: 06-24-2022 Prednisone 10 [...] 3 days spironolactone 25 mg oral tablet (17 sources) Aldosterone Antagonist Start: 10-01-2023 End: 10-02-2023 take 1 tablet by mouth once daily Spironolactone 25 mg tablet Discontinued 25 MG PO Daily October 01, 2023 12:00am October 02, 2023 10:55am On Hold: Until cleared by Nephrology Start: 06-04-2021 take 50 mg by mouth once daily Spironolactone Active 50 MG PO Daily June 04, 2021 1:00am Spironolactone A ctive Tirzepatide (6 sources) Start: 10-01-2023 End: 10-16-2023 Tirzepatide (Mounjaro) 2.5 m g/0.5 mL pen injector Discontinued 2.5 MG SUBCUT .weekly October 01, 2023 12:00am October 16, 2023 1:12pm Start: 10-01-2023 Tirzepatide (M ounjaro) 2.5 mg/0.5 mL pen injector Active 2.5 MG SUBCUT .weekly October 01, 2023 12:00am Tirzepatide (8 sources) Start: 03-12-2024 End: 03-12-2024 Tirzepatide (Mounjaro) 5 mg/ 0.5 mL pen injector Discontinued 7.5 MG SUBCUT every week March 12, 2024 10:32am March 12, 2024 10:38am Start: 10-16-2023 End: 03-12-2024 Tirzepatide (Mounjaro) 5 mg/ 0.5 mL pen injector Discontinued 5 MG SUBCUT every week October 16, 2023 12:00am March 12, 2024 10:38am Start: 10-16-2023 Tirzepatide (Lupe rushing) 5 mg/0.5 mL pen injector Active 5 MG SUBCUT every week October 16, 2023 12:00am Triamcinolone (3 sources) Corticosteroid Start: 10-01-2023 End: 10-16-2023 Triamcinolone Acetonide Disc ontinued 110 MCG INTRANASAL Daily October 01, 2023 12:00am October 16, 2023 1:12pm Start: 10-01-2023 Triamcinolone Acetonide Active 110 MCG INTRANASAL Daily October 01, 2023 12:00am Triamcinolone Acetonide 55 mcg/actuation aerosol (3 sources) Start: 10-01-2023 End: 10-16-2023 Triamcinolone Acetonide [...] a day for 30 day(s) Sep, Not-Taking cyanocobalamin ( vitamin B-12) 2,500 mcg tablet - Active Cyanocobalamin ( Vitamin B-12) 2500 MCG sublingual [...] Coronary arteriosclerosis; Translations: [Atherosclerotic heart disease of [place] coronary artery without angina pectoris] Onset: 3 08-11-2021 Chronic Deficiency and other anemia (20 sources) Anemia; Translations: [Anemia, unspecified] Onset: 4 Resolved: 4 10-24-2023 Episodic Diabetes mellitus with complications (20 sources) Type 2 diabetes mellitus; Translations: [Type 2 diabetes mellitus with hypoglycemia without coma] Onset: 2 Resolved: 4 Chronic Diabetes mellitus without complication (1 source) Type 2 diabetes mellitus without complications; Translations: [TYPE 2 DM WITHOUT COMPLICATIONS] Onset: 3 Chronic Disorders of lipid metabolism (20 sources) Dyslipidemia; Translations: [Hyperlipidemia, unspecified] Onset: 2 Chronic Disorders of teeth and jaw (20 sources) Infection of tooth; Translations: [Periapical abscess without sinus] Onset: 4 Resolved: 5 09-20-2023 Episodic Diverticulosis and diverticulitis (20 sources) Diverticulosis of large intestine; Translations: [Diverticulosis of large intestine without perforation or abscess without bleeding] Onset: 4 11-12-2023 Chronic Esophageal disorders (20 sources) Gastroesophageal reflux disease; Translations: [Gastro-esophageal reflux disease without esophagitis] Onset: 4 Chronic Essential hypertension (20 sources) Essential hypertension; Translations: [Essential (primary) hypertension] Onset: 3 08-10-2021 Chronic Fluid and electrolyte disorders (20 sources) Hyperkalemia; Translations: [Hyperkalemia] Onset: 2 Episodic Headache; including migraine (20 sources) Tension-type headache; [...] D deficiency, unspecified] Onset: 4 10-10-2023 Chronic Nutritional deficiencies (20 sources) Cobalamin deficiency; Translations: [Deficiency of other specified B group vitamins] Onset: 4 10-10-2023 Episodic Other aftercare (1 source) 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 teacher (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; Translations: [LEAD NETWORK ENGINEER CURRENT USE OF ASPIRIN] Onset: 3 Episodic Other aftercare (1 source) 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 teacher (current) use of oral hypoglycemic drugs; Translations: [LEAD NETWORK ENGINEER USE ORAL HYPOGLYCEMIC DX] Onset: 3 Episodic Other aftercare (1 source) Other oysterman (current) drug therapy; Translations: [OTH USP CURRENT DRUG THERAPY] Onset: 3 Episodic Other [...] Chronic Other nutritional; endocrine; and metabolic disorders (16 sources) Morbid obesity; Translations: [Morbid (severe) obesity [...] (BMI) of 45.0 to 49.9 in adult ([facility])] Onset: 4 02-19-2024 Chronic Other nutritional; endocrine; and metabolic disorders (11 sources) Obesity caused by energy imbalance; Translations: [Morbid (severe) obesity due to excess calories] Onset: 4 12-05-2023 Chronic Other nutritional; endocrine; and metabolic disorders (2 sources) Body mass index (BMI) 39.0-39.9, adult Onset: 5 12-02-2024 Chronic Other nutritional; endocrine; and metabolic disorders (20 sources) Hyperuricemia; Translations: [Hyperuricemia without signs of inflammatory arthritis and tophaceous disease] Onset: 4 10-10-2023 Episodic Other screening for suspected conditions (not mental disorders or infectious disease) (20 sources) Encounter for screening mammogram for malignant neoplasm of breast; Translations: [Abnormal findings on diagnostic imaging of other parts of musculoskeletal system] Onset: 2 Episodic Other upper respiratory disease (20 sources) [...] APNEA] Onset: 3 Chronic Residual codes; unclassified (9 sources) Localized edema; Translations: [Localized edema] 07-11-2023 [...] unspecified; Translations: [ANEMIA UNSPECIFIED] Onset: 01-23-2022 Episodic Genitourinary symptoms and ill-defined conditions (20 [...] unspecified] Onset: 10-03-2023 Resolved: 09-03-2024 10-03-2023 Episodic Open wounds of head; neck; and [...] blood chemistry] Onset: 03-11-2024 08-15-2023 Episodic Other upper respiratory infections (20 sources) [...] [CONTACT W/AND (SUSP) EXPOS COVID-19] Onset: 12-21-2021 Unclassified (1 source) Periodic exam (chief complaint) Onset: 12-02-2024 Urinary tract infections (20 sources) Escherichia coli urinary tract infection; Translations: [Urinary tract infection, site not specified] Onset: 07-05-2023 Resolved: 09-03-2024 07-05-2023 Episodic Results Test Name Value Interpretation Reference Range [facility] 12-12-2024 ANES ------ -- Attestation signed by Tk Godoy MD at 12/12/2024 8:20 AM Tk Godoy MD, MPH, FACC, [facility], [facility] Interventional Cardiology Pager Email: [email or web address] -- Patient: Sherly Humphreys Procedure Information Date/Time: 12/12/24 0830 Procedure: Coronary angiography (Left) - PC APPROVED 11/26-12/25 Location: [facility] BOAT HOP 3 / [facility] (Cath) Providers: Tk Godoy MD Clinical information reviewed: Allergies Meds OB [...] attending. Additional Equipment Requests Austin Earl MD Line Operator, PGY-4 [facility] 12/12/24 8:07 AM Normal [facility] HPon 12-12-2024 ------ -- Attestation signed by Tk Godoy MD at 12/12/2024 8:20 AM By using [...] personal documentation from me. Additional Comments: Tk Godoy MD, MPH, [facility], [facility], [facility] Interventional Cardiology Pager Email: [email or web address] -- History Of Present Illness Sherly Humphreys is a 53 y.o. female with [...] Resource Strain: High Risk (11/18/2024) Received from [facility] Overall Financial Resource Strain (CARDIA) Difficulty of Paying Living Expenses: Hard Food Insecurity: Food Insecurity Present (11/18/2024) Received from [facility] Hunger Vital Sign Worried About Running Out of Food in the Last Year: Often true Ran Out of Food in the Last Year: Often true Transportation Needs: No Transportation Needs (11/18/2024) Received from [facility] PRAPARE - Transportation Lack of Transportation (Medical): No Lack of Transportation (Non-Medical): No Physical Activity: Inactive (11/18/2024) Received from [facility] Exercise Vital Sign Days of Exercise per Week: 0 days Minutes of Exercise per Session: 0 min Stress: Stress Concern Present (11/18/2024) Received from [facility] of Occupational Health - Occupational Stress Questionnaire Feeling of Stress : To some extent Social Connections: Socially Isolated (11/18/2024) Received from [facility] Social Connection and Isolation Panel [NHANES] Frequency of Communication with Friends and Family: More than three times a week Frequency of Social Gatherings with Friends and Family: Once a week Attends [employer] Services: Never Active Member of Clubs or Organizations: No Attends Club or Organization Meetings: Never Marital Status: Never Intimate Partner Violence: Not At Risk (11/18/2024) Received from [facility] Humiliation, Afraid, Rape, and Kick questionnaire Fear of Current or Ex-Partner: No Emotionally Abused: No Physically Abused: No Sexually Abused: No Housing Stability: Low Risk (11/18/2024) Received from [facility] Housing Stability Vital Sign Unable to Pay [...] effort is normal. Breath sounds: Normal breath (more content not included)... Normal [facility] NURSNOTEon 12-12-2024 NURSNOTE RN educated pt on d/ c instructions. This included: site care, limited physical activity, [...] off of unit with all of belongings. Normal [facility] Orders Onlyon 12-10-2024 Orders Only [id number] Nithin Humphreys 1970 F Date Provider Department Center 12/10/2024 [id number], HISTORICAL BH CARD [facility] Family History Problem Relation Age of Onset Cancer Mother Heart attack Father Family Status - Relation Status Age at Mother Father [facility] ALL CBC WITH AUTO DIFFon BASOPHILS ABSOLUTE AUTO 0.1 [facility] Basophils/100 WBC (Bld) 1 % 0.2 - 2.0 % [facility] Eosinophils/100 WBC (Bld) 3.1 % 0.9 - 7.0 % [facility] Erythrocyte distribution width (RBC) [Ratio] 13.1 % 11.0 - 15.0 % [facility] Hematocrit (Bld) [Volume fraction] 37 % 36.0 - 48.0 % [facility] Hemoglobin (Bld) [Mass/Vol] 11.9 g/dL Low 12.0 - 16.0 g/dL [facility] IMMATURE GRANULOCYTES ABS AUTO 0.01 [facility] Immature granulocytes/100 WBC (Bld) 0.2 % 0.0 - 0.5 % [facility] Interpretation and review of laboratory results Abnormal [facility] LYMPHOCYTES ABSOLUTE AUTO 1.4 [facility] Lymphocytes/100 WBC (Bld) 24.4 % 20.5 - 60.0 % [facility] MCH (RBC) [Entitic mass] 29.8 pg 26.7 - 34.0 pg [facility] MCHC (RBC) [Mass/Vol] 32.2 g/dL 29.9 - 35.2 g/dL [facility] MCV (RBC) [Entitic vol] 92.7 fL 81.0 - 99.0 fL [facility] MONOCYTES ABSOLUTE AUTO 0.3 [facility] Monocytes/100 WBC (Bld) 5.2 % 1.7 - 12.0 % [facility] NEUTROPHILS ABSOLUTE AUTO 3.8 [facility] Neutrophils/100 WBC (Bld) 66.1 % 43.0 - 75.0 % [facility] Platelet mean volume (Bld) [Entitic vol] 10.8 fL 9.5 - 13.5 fL [facility] EO # 0.2 [facility] PLT 282 [facility] RBC 3.99 Low [facility] WBC 5.8 [facility] 36on 11-18-2024 36 Regarding stress derek t result from 11/13/2024: Tk Godoy MD to Me (Selected Message) EE 11/18/24 4:19 AM Please let her know her stress test is abnormal and I would recommend cardiac cath: CORS via L radial approach. Thanks Spoke with Sherly and made her aware. Lab orders faxed to [facility]. She verbalized understanding. Normal [facility] Albumin [Mass/volume] in Ser um or Plasma by Bromocresol green (BCG) dye binding methoOrdered By: Halle Mac on 11-18-2024 Albumin BCG dye [Mass/Vol] 4.1 g/dL 3.5-5.7 [facility] Appearance of UrineOrdered B y: Halle Mac on 11-18-2024 Appearance (U) Clear Clear [facility] Comment on above: Order Comment: Name Collection Type:: Clean-Voided Midstream Performed By: #### V [id number], [id number], PROCRERAT, FE and TIBC, URIC, URMACRERAT, UA, MG, PTH, RENAL, CBCNO, GEENA #### [facility] [address] [place] [address] Bacteria [Presence] in Urine by AutomatedOrdered By: Halle Mac on 11-18-2024 Bacteria Auto Ql (U) None seen [HPF] None Seen [facility] Bilirubin Test strip Ql (U)O rdered By: Halle Mac on 11-18-2024 Bilirubin Ql (U) 1+ High Negative [facility] Calcium [Mass/volume] in Ser um or PlasmaOrdered By: Halle Mac on 11-18-2024 Calcium [Mass/Vol] 9.6 mg/dL 8.6-10.3 [facility] Comment on above: Performed By: #### V [id number], [id number], PROCRERAT, FE and TIBC, URIC, URMACRERAT, UA, MG, PTH, RENAL, CBCNO, GEENA #### [facility] [address] [place] [address] [place] Carbon dioxide, total [Moles /volume] in Serum or PlasmaOrdered By: Halle Mac on 11-18-2024 CO2 [Moles/Vol] 28.3 mmol/L 21.0-31.0 [facility] Comment on above: Performed By: #### V [id number], [id number], PROCRERAT, FE and TIBC, URIC, URMACRERAT, UA, MG, PTH, RENAL, CBCNO, GEENA #### [facility] [address] [place] [id number] [place] Chloride [Moles/volume] in S brunilda or PlasmaOrdered By: Halel Mac on 11-18-2024 Chloride [Moles/Vol] 111 mmol/L High 98-107 [facility] Comment on above: Performed By: #### V [id number], [id number], PROCRERAT, FE and TIBC, URIC, URMACRERAT, UA, MG, PTH, RENAL, CBCNO, GEENA #### [facility] [address] Color of Urine by AutoOrdere d By: Halle Mac on 11-18-2024 Color (U) Yellow Yellow [facility] Comment on above: Order Comment: Name Collection Type:: Clean-Voided Midstream Performed By: #### V [id number], [id number], PROCRERAT, FE and TIBC, URIC, URMACRERAT, UA, MG, PTH, RENAL, CBCNO, GEENA #### [facility] [address] [place] [id number] [place] Creatinine [Mass/volume] in Serum or PlasmaOrdered By: Halle Mac on 11-18-2024 Creatinine [Mass/Vol] 1.38 mg/dL High 0.60-1.20 [facility] Comment on above: Performed By: #### V [id number], [id number], PROCRERAT, FE and TIBC, URIC, URMACRERAT, UA, MG, PTH, RENAL, CBCNO, GEENA #### [facility] [address] Creatinine [Mass/volume] in UrineOrdered By: Halle Mac on 11-18-2024 Creatinine (U) [Mass/Vol] 270.00 mg/dL [facility] Comment on above: No reference range e stablished Dipstick and Microscopicon 0 11-18-2024 Bacteria,Urine None Seen Normal None Seen [facility] Comment on above: Order Comment: Name Collection Type:: Clean-Voided Midstream Performed By: #### V [id number], [id number], PROCRERAT, FE and TIBC, URIC, URMACRERAT, UA, MG, PTH, RENAL, CBCNO, GEENA #### [address] Bilirubin,Urine 1+ Normal Negative [facility] Comment on above: Order Comment: Name Collection Type:: Clean-Voided Midstream Performed By: #### V [id number], [id number], PROCRERAT, FE and TIBC, URIC, URMACRERAT, UA, MG, PTH, RENAL, CBCNO, GEENA #### [address] Glucose Ql (U) Normal Normal Normal [facility] Comment on above: Order Comment: Name Collection Type:: Clean-Voided Midstream Performed By: #### V [id number], [id number], PROCRERAT, FE and TIBC, URIC, URMACRERAT, UA, MG, PTH, RENAL, CBCNO, GEENA #### [facility] [address] Hyaline Casts,Urine 9-19 Normal 0-8 [facility] Comment on above: Order Comment: Name Collection Type:: Clean-Voided Midstream Performed By: #### V [id number], [id number], PROCRERAT, FE and TIBC, URIC, URMACRERAT, UA, MG, PTH, RENAL, CBCNO, GEENA #### [address] Mucus,Urine Rare Normal [facility] Comment on above: Order Comment: Name Collection Type:: Clean-Voided Midstream Result Comment: PERF ORMED BY: [place] [address] PATHOLOGIST ELECTRICAL DESIGN TECHNOLOGIST KRISHAN PAEZ M.D. Performed By: #### V [id number], [id number], PROCRERAT, FE and TIBC, URIC, URMACRERAT, UA, MG, PTH, RENAL, CBCNO, GEENA #### [address] Nitrite,Urine Negative Normal Negative [facility] Comment on above: Order Comment: Name Collection Type:: Clean-Voided Midstream Performed By: #### V [id number], [id number], PROCRERAT, FE and TIBC, URIC, URMACRERAT, UA, MG, PTH, RENAL, CBCNO, GEENA #### [address] Occult Blood,Urine Negative Normal Negative [facility] Comment on above: Order Comment: Name Collection Type:: Clean-Voided Midstream Result Comment: PERF ORMED BY: [place] [address] PATHOLOGIST ELECTRICAL DESIGN TECHNOLOGIST KRISHAN PAEZ M.D. Performed By: #### V [id number], [id number], PROCRERAT, FE and TIBC, URIC, URMACRERAT, UA, MG, PTH, RENAL, CBCNO, GEENA #### [address] Protein,Urine Trace Normal Negative [facility] Comment on above: Order Comment: Name Collection Type:: Clean-Voided Midstream Performed By: #### V [id number], [id number], PROCRERAT, FE and TIBC, URIC, URMACRERAT, UA, MG, PTH, RENAL, CBCNO, GEENA #### [address] RBC,Urine 1-2 Normal 0-4 [facility] Comment on above: Order Comment: Name Collection Type:: Clean-Voided Midstream Performed By: #### V [id number], [id number], PROCRERAT, FE and TIBC, URIC, URMACRERAT, UA, MG, PTH, RENAL, CBCNO, GEENA #### [address] Specificy Ault,Urine 1.038 High 1.001-1.030 [facility] Comment on above: Order Comment: Name Collection Type:: Clean-Voided Midstream Performed By: #### V [id number], [id number], PROCRERAT, FE and TIBC, URIC, URMACRERAT, UA, MG, PTH, RENAL, CBCNO, GEENA #### [address] Squamous Epithelial Cell,Urine 1-2 Normal 0-2 [facility] Comment on above: Order Comment: Name Collection Type:: Clean-Voided Midstream Performed By: #### V [id number], [id number], PROCRERAT, FE and TIBC, URIC, URMACRERAT, UA, MG, PTH, RENAL, CBCNO, GEENA #### [address] Urobilinogen,Urine 2 mg/dL Normal Normal [facility] Comment on above: Order Comment: Name Collection Type:: Clean-Voided Midstream Performed By: #### V [id number], [id number], PROCRERAT, FE and TIBC, URIC, URMACRERAT, UA, MG, PTH, RENAL, CBCNO, GEENA #### [address] WBC,Urine 1-2 Normal 0-4 [facility] Comment on above: Order Comment: Name Collection Type:: Clean-Voided Midstream Performed By: #### V [id number], [id number], PROCRERAT, FE and TIBC, URIC, URMACRERAT, UA, MG, PTH, RENAL, CBCNO, GEENA #### [facility] [address] Epithelial cells.squamous [# /area] in Urine sediment by Automated countOrdered By: Halle Mac on 11-18-2024 Epithelial cells.squamous Auto (Urine sed) [#/Area] 1-2 [HPF] 0-2 [facility] Erythrocyte distribution wid th [Ratio] by Automated countOrdered By: Halle Mac on 11-18-2024 Erythrocyte distribution width (RBC) [Ratio] 13.9 % 11.9-15.3 [facility] Comment on above: Performed By: #### V [id number], [id number], PROCRERAT, FE and TIBC, URIC, URMACRERAT, UA, MG, PTH, RENAL, CBCNO, GEENA #### [facility] [address] Erythrocytes [#/area] in Uri ne sediment by Automated countOrdered By: Halle Mac on 11-18-2024 RBC Auto (Urine sed) [#/Area] 1-2 [HPF] 0-4 [facility] Erythrocytes [#/volume] in B lood by Automated countOrdered By: Halle Mac on 11-18-2024 RBC (Bld) [#/Vol] 3.67 10*6/uL 3.60-5.00 [facility] Comment on above: Performed By: #### V [id number], [id number], PROCRERAT, FE and TIBC, URIC, URMACRERAT, UA, MG, PTH, RENAL, CBCNO, GEENA #### [facility] [address] Ferritin [Mass/volume] in Se rum or PlasmaOrdered By: Halle Mac on 11-18-2024 Ferritin [Mass/Vol] 235.3 ng/mL 11.0-306.8 [facility] Comment on above: Performed By: #### V [id number], [id number], PROCRERAT, FE and TIBC, URIC, URMACRERAT, UA, MG, PTH, RENAL, CBCNO, GEENA #### [facility] [address] Folate [Mass/volume] in Seru m or PlasmaOrdered By: Halle Mac on 11-18-2024 Folate [Mass/Vol] 9.8 ng/mL >5.9 [facility] Comment on above: Folate reference ran ge: >5.9 ng/mlThe WHO technical consultation on folate and vitamin [id number] has determined that folate concentrations lessthan 4 ng/ml are considered deficient. Glucose [Mass/volume] in Ser um or PlasmaOrdered By: Halle Mac on 11-18-2024 Glucose [Mass/Vol] 88 mg/dL 70-100 [facility] Comment on above: ADA recommended refe rence rangeRandom Glucose Reference Range is dependent on time and content of last meal. Glucose of more than 200 mg/dL in a nonstressed, ambulatory subject supports the diagnosis of Diabetes Mellitus. Result Comment: [place] om Glucose Reference Range is dependent on time and content of last meal. Glucose of more than 200 mg/dL in a nonstressed, ambulatory subject supports the diagnosis of Diabetes Mellitus. ADA recommended reference range Performed By: #### V [id number], [id number], PROCRERAT, FE and TIBC, URIC, URMACRERAT, UA, MG, PTH, RENAL, CBCNO, GEENA #### [facility] [address] Glucose [Mass/volume] in Uri ne by Test stripOrdered By: Halle Mac on 11-18-2024 Glucose Test strip (U) [Mass/Vol] Normal mg/dL Normal [facility] Hematocrit [Volume Fraction] of Blood by Automated countOrdered By: Halle Mac on 11-18-2024 Hematocrit (Bld) [Volume fraction] 33.1 % Low 34.0-46.4 [facility] Comment on above: Performed By: #### V [id number], [id number], PROCRERAT, FE and TIBC, URIC, URMACRERAT, UA, MG, PTH, RENAL, CBCNO, GEENA #### [facility] [address] Hemoglobin Test strip Ql (U) Ordered By: Halle Mac on 11-18-2024 Hemoglobin Ql (U) Negative Negative [facility] Hemoglobin [Mass/volume] in BloodOrdered By: Halle Mac on 11-18-2024 Hemoglobin (Bld) [Mass/Vol] 10.8 g/dL Low 11.8-15.4 [facility] Comment on above: Performed By: #### V [id number], [id number], PROCRERAT, FE and TIBC, URIC, URMACRERAT, UA, MG, PTH, RENAL, CBCNO, GEENA #### [facility] [address] Hemogram CBC Without Diffon 11-18-2024 Mean Corpuscular HGB Conc 32.7 g/dL Normal 32.0-35.0 [facility] Comment on above: Performed By: #### V [id number], [id number], PROCRERAT, FE and TIBC, URIC, URMACRERAT, UA, MG, PTH, RENAL, CBCNO, GEENA #### [facility] [address] White Blood Count 9.7 [CFU]/mL Normal 3.8-11.6 [facility] Comment on above: Performed By: #### V [id number], [id number], PROCRERAT, FE and TIBC, URIC, URMACRERAT, UA, MG, PTH, RENAL, CBCNO, GEENA #### [address] Hyaline casts [#/area] in Ur ine sediment by Automated countOrdered By: Halle Mac on 11-18-2024 Hyaline casts Auto (Urine sed) [#/Area] 9-19 [LPF] High 0-8 [facility] Iron [Mass/volume] in Serum or PlasmaOrdered By: Halle Mac on 11-18-2024 Iron [Mass/Vol] 64 ug/dL 50-212 [facility] Comment on above: Performed By: #### V [id number], [id number], PROCRERAT, FE and TIBC, URIC, URMACRERAT, UA, MG, PTH, RENAL, CBCNO, GEENA #### [address] Iron and TIBC Profileon % Iron Saturation 15.4 % Low 20-50 [facility] Comment on above: Performed By: #### V [id number], [id number], PROCRERAT, FE and TIBC, URIC, URMACRERAT, UA, MG, PTH, RENAL, CBCNO, GEENA #### [address] Total Iron Binding Capacity 416 ug/dL Normal 255-450 [facility] Comment on above: Performed By: #### V [id number], [id number], PROCRERAT, FE and TIBC, URIC, URMACRERAT, UA, MG, PTH, RENAL, CBCNO, GEENA #### [address] Ketones [Presence] in Urine by Test stripOrdered By: Halle Mac on 11-18-2024 Ketones Ql (U) Negative Negative [facility] Comment on above: Order Comment: Name Collection Type:: Clean-Voided Midstream Performed By: #### V [id number], [id number], PROCRERAT, FE and TIBC, URIC, URMACRERAT, UA, MG, PTH, RENAL, CBCNO, GEENA #### [address] Leukocyte esterase [Presence ] in Urine by Test stripOrdered By: Halle Mac on 11-18-2024 Leukocyte esterase Test strip Ql (U) 3+ High Negative [facility] Comment on above: Order Comment: Name Collection Type:: Clean-Voided Midstream Performed By: #### V [id number], [id number], PROCRERAT, FE and TIBC, URIC, URMACRERAT, UA, MG, PTH, RENAL, CBCNO, GEENA #### [place] [id number] [place] Leukocytes [#/area] in Urine sediment by Automated countOrdered By: Halle Mac on 11-18-2024 WBC Auto (Urine sed) [#/Area] 1-2 [HPF] 0-4 [facility] Leukocytes [#/volume] correc joaquin for nucleated erythrocytes in Blood by Automated counOrdered By: Halle Mac on 11-18-2024 WBC corrected for nucl RBC Auto (Bld) [#/Vol] 9.7 10*3/uL 3.8-11.6 [facility] MCH [Entitic mass] by Automa joaquin countOrdered By: Halle Mac on 11-18-2024 MCH (RBC) [Entitic mass] 29.5 pg 24.7-34.3 [facility] Comment on above: Performed By: #### V [id number], [id number], PROCRERAT, FE and TIBC, URIC, URMACRERAT, UA, MG, PTH, RENAL, CBCNO, GEENA #### [facility] [address] MCHC Auto (RBC) [Mass/Vol]Or dered By: Halle Mac on 11-18-2024 MCHC (RBC) [Mass/Vol] 32.7 g/dL 32.0-35.0 [facility] MCV [Entitic volume] by Auto mated countOrdered By: Halle Mac on 11-18-2024 MCV (RBC) [Entitic vol] 90.3 fL 80-100 [facility] Comment on above: Performed By: #### V [id number], [id number], PROCRERAT, FE and TIBC, URIC, URMACRERAT, UA, MG, PTH, RENAL, CBCNO, GEENA #### [facility] [address] [place] [address] Magnesium [Mass/volume] in S brunilda or PlasmaOrdered By: Halle Mac on 11-18-2024 Magnesium [Mass/Vol] 2.1 mg/dL 1.9-2.7 [facility] Comment on above: Performed By: #### V [id number], [id number], PROCRERAT, FE and TIBC, URIC, URMACRERAT, UA, MG, PTH, RENAL, CBCNO, GEENA #### [facility] [address] MicroAlb Creat Ratio,Uon Creatinine, Urine (Random) 270.00 mg/dL Normal [facility] Comment on above: Result Comment: No r eference range established Performed By: #### V [id number], [id number], PROCRERAT, FE and TIBC, URIC, URMACRERAT, UA, MG, PTH, RENAL, CBCNO, GEENA #### [facility] [address] Microalbumin/Creatinin e Ratio 8.1 mg/g Normal 0.0-30.0 [facility] Comment on above: Result Comment: 30-3 00 mg/g indicates an increased risk for diabetic nephropathy. Greater than 300 mg/g is consistent with clinical nephropathy. (Am. J. Kidney Disease 1995, 25:107) Performed By: #### V [id number], [id number], PROCRERAT, FE and TIBC, URIC, URMACRERAT, UA, MG, PTH, RENAL, CBCNO, GEENA #### [facility] [address] Microalbumin [Mass/volume] i n UrineOrdered By: Halle Mac on 11-18-2024 Albumin DL <= 20 mg/L (U) [Mass/Vol] 2.2 mg/dL High 0.0-1.8 [facility] Comment on above: Performed By: #### V [id number], [id number], PROCRERAT, FE and TIBC, URIC, URMACRERAT, UA, MG, PTH, RENAL, CBCNO, GEENA #### [facility] [address] Mucus [Presence] in Urine by AutomatedOrdered By: Halle Mac on 11-18-2024 Mucus Auto Ql (U) Rare [LPF] [facility] Nitrite Test strip Ql (U)Ord ered By: Halle Mac on 11-18-2024 Nitrite Ql (U) Negative Negative [facility] No Panel InformationOrdered By: Halle Mac on 11-18-2024 Estimated GFR (CKD-EPI) 45.770 mL/Min [facility] Creatinine Clearance (Chem N/A [facility] Parathyrin.intact [Mass/volu me] in Serum or PlasmaOrdered By: Halle Mac on 11-18-2024 Parathyrin.intact [Mass/Vol] 25.6 pg/mL [facility] [facility] Parathyroid Hormone Intacton 11-18-2024 Parathyroid Hormone Intact 25.6 pg/mL Normal [facility] Comment on above: Result Comment: PERF ORMED BY: [place] [address] PATHOLOGIST ELECTRICAL DESIGN TECHNOLOGIST KRISHAN PAEZ M.D. Performed By: #### V [id number], [id number], PROCRERAT, FE and TIBC, URIC, URMACRERAT, UA, MG, PTH, RENAL, CBCNO, GEENA #### [facility] [address] [place] [address] [place] Phosphate [Mass/volume] in S brunilda or PlasmaOrdered By: Halle Mac on 11-18-2024 Phosphate [Mass/Vol] 3.5 mg/dL 2.5-4.5 [facility] Comment on above: Performed By: #### V [id number], [id number], PROCRERAT, FE and TIBC, URIC, URMACRERAT, UA, MG, PTH, RENAL, CBCNO, GEENA #### [facility] [address] [place] [address] [place] Platelet mean volume [Entiti c volume] in Blood by Automated countOrdered By: Halle Mac on 11-18-2024 Platelet mean volume (Bld) [Entitic vol] 9.4 fL 6.3-10.7 [facility] Comment on above: Result Comment: PERF ORMED BY: [facility] [address] [place] [address] PATHOLOGIST ELECTRICAL DESIGN TECHNOLOGIST KRISHAN PAEZ M.D. Performed By: #### V [id number], [id number], PROCRERAT, FE and TIBC, URIC, URMACRERAT, UA, MG, PTH, RENAL, CBCNO, GEENA #### [facility] [address] [place] [address] [facility] Platelets [#/volume] in Bloo d by Automated countOrdered By: Halle Mac on 11-18-2024 Platelets (Bld) [#/Vol] 258 10*3/uL 150-450 [facility] Comment on above: Performed By: #### V [id number], [id number], PROCRERAT, FE and TIBC, URIC, URMACRERAT, UA, MG, PTH, RENAL, CBCNO, GEENA #### [place] [id number] [facility] Potassium [Moles/volume] in Serum or PlasmaOrdered By: Halle Mac on 11-18-2024 Potassium [Moles/Vol] 4.6 mmol/L 3.5-5.1 [facility] Comment on above: Performed By: #### V [id number], [id number], PROCRERAT, FE and TIBC, URIC, URMACRERAT, UA, MG, PTH, RENAL, CBCNO, GEENA #### [place] [id number] [facility] Protein Creat Ratio Ur Rando mon 11-18-2024 Urine Protein/Creatinine Ratio 85 mg/g{Cre} Normal 0-200 [facility] Comment on above: Result Comment: PERF ORMED BY: [place] [address] PATHOLOGIST ELECTRICAL DESIGN TECHNOLOGIST KRISHAN PAEZ M.D. Performed By: #### V [id number], [id number], PROCRERAT, FE and TIBC, URIC, URMACRERAT, UA, MG, PTH, RENAL, CBCNO, GEENA #### [place] [id number] [facility] Protein Test strip (U) [Mass /Vol]Ordered By: Halle Mac on 11-18-2024 Protein (U) [Mass/Vol] Trace mg/dL High Negative [facility] Protein [Mass/volume] in Uri neOrdered By: Halle Mac on 11-18-2024 Protein (U) [Mass/Vol] 23 mg/dL High 0-9 [facility] Comment on above: Performed By: #### V [id number], [id number], PROCRERAT, FE and TIBC, URIC, URMACRERAT, UA, MG, PTH, RENAL, CBCNO, GEENA #### [facility] [address] Renal Function Panelon 11-18 Albumin [Mass/Vol] 4.1 g/dL Normal 3.5-5.7 [facility] Comment on above: Performed By: #### V [id number], [id number], PROCRERAT, FE and TIBC, URIC, URMACRERAT, UA, MG, PTH, RENAL, CBCNO, GEENA #### [facility] [address] GFR/1.73 sq M.predicted MDRD (S/P/Bld) [Vol rate/Area] 45.770 mL/min/{1.73_m2} Normal [facility] Comment on above: Performed By: #### V [id number], [id number], PROCRERAT, FE and TIBC, URIC, URMACRERAT, UA, MG, PTH, RENAL, CBCNO, GEENA #### [facility] [address] Serum or plasma anion gap de terminationOrdered By: Halle Mac on 11-18-2024 Anion gap [Moles/Vol] 9.3 mmol/L 6.0-15.0 [facility] Comment on above: Performed By: #### V [id number], [id number], PROCRERAT, FE and TIBC, URIC, URMACRERAT, UA, MG, PTH, RENAL, CBCNO, GEENA #### [facility] [address] [place] [id number] [facility] Serum or plasma iron binding capacity measurement (mass/volume)Ordered By: Halle Mac on 11-18-2024 Iron binding capacity [Mass/Vol] 416 ug/dL 255-450 [facility] Serum or plasma iron saturat ion measurement (mass fraction)Ordered By: Halle Mac on 11-18-2024 Iron saturation [Mass fraction] 15.4 % Low 20-50 [facility] Sodium [Moles/volume] in Ser um or PlasmaOrdered By: Halle Mac on 11-18-2024 Sodium [Moles/Vol] 144 mmol/L 136-145 [facility] Comment on above: Performed By: #### V [id number], [id number], PROCRERAT, FE and TIBC, URIC, URMACRERAT, UA, MG, PTH, RENAL, CBCNO, GEENA #### [facility] [address] [id number] [facility] Specific gravity Test strip (U) [Rel density]Ordered By: Halle Mac on 11-18-2024 Specific gravity (U) [Rel density] 1.038 High 1.001-1.030 [facility] Telephoneon 11-18-2024 Telephone [phone] Nithin Humphreys 1970 F Date Provider Department Center 11/18/2024 NEO TABARES [facility] Family History Problem Relation Age of Onset Cancer Mother Heart attack Father Family Status - Relation Status Age at Mother Father Normal [facility] Transferrin [Mass/volume] in Serum or PlasmaOrdered By: Halle Mac on 11-18-2024 Transferrin [Mass/Vol] 297 mg/dL 203-362 [facility] Comment on above: Performed By: #### V [id number], [id number], PROCRERAT, FE and TIBC, URIC, URMACRERAT, UA, MG, PTH, RENAL, CBCNO, GEENA #### [facility] [address] [id number] [facility] Urate [Mass/volume] in Serum or PlasmaOrdered By: Halle Mac on 11-18-2024 Urate [Mass/Vol] 5.1 mg/dL 2.3-6.6 [facility] Comment on above: Performed By: #### V [id number], [id number], PROCRERAT, FE and TIBC, URIC, URMACRERAT, UA, MG, PTH, RENAL, CBCNO, GEENA #### [facility] [address] [place] [address] [place] Urea nitrogen [Mass/volume] in Serum or PlasmaOrdered By: Halle Mac on 11-18-2024 Urea nitrogen [Mass/Vol] 25 mg/dL 7- [facility] Comment on above: Performed By: #### V [id number], [id number], PROCRERAT, FE and TIBC, URIC, URMACRERAT, UA, MG, PTH, RENAL, CBCNO, GEENA #### [facility] [address] Urine microalbumin/creatinin e mass ratioOrdered By: Halle Mac on 11-18-2024 Albumin/Creatinine DL <= 20 mg/L (U) [Mass ratio] 8.1 mg/g 0.0-30.0 [facility] Comment on above: 30-300 mg/g indicate s an increased risk for diabetic nephropathy. Greater than 300 mg/g is consistent with clinical nephropathy. (Am. J. Kidney Disease 1995, 25:107) Urine protein/creatinine rat ioOrdered By: Halle Mac on 11-18-2024 Protein/Creatinine (U) [Ratio] 85 mg/g{Cre} 0-200 [facility] Urobilinogen Test strip (U) [Mass/Vol]Ordered By: Halle Mac on 11-18-2024 Urobilinogen (U) [Mass/Vol] 2 mg/dL High Normal [facility] Vit. B12/Folate Profileon Folate 9.8 ng/mL Normal >5.9 [facility] Comment on above: Result Comment: Maria te reference range: >5.9 ng/ml The WHO technical consultation on folate and vitamin b12 deficiencies has determined that folate concentrations less than 4 ng/ml are considered deficient. Performed By: #### V [id number], [id number], PROCRERAT, FE and TIBC, URIC, URMACRERAT, UA, MG, PTH, RENAL, CBCNO, GEENA #### [facility] [address] [place] [id number] [facility] Vitamin B12 ser/plasOrdered By: Halle Mac on 11-18-2024 Cobalamin (Vitamin B12) [Mass/Vol] 934 pg/mL High 180-914 [facility] Comment on above: Performed By: #### V [id number], [id number], PROCRERAT, FE and TIBC, URIC, URMACRERAT, UA, MG, PTH, RENAL, CBCNO, GEENA #### [facility] [address] [place] [id number] [facility] Vitamin D 25 Hydroxy Totalon 11-18-2024 Vitamin D 25 Hydroxy Total 23.9 ng/mL Low 30-100 [facility] Comment on above: Result Comment: AWAIS MIN D STATUS 25(OH)VITAMIN D RANGE (ng/mL) Deficient <20 Insufficient 20 to <30 Sufficient 30 to 100 Reference: Karen MF,Nicole NC, Sylvain-Alphonso LI, et al. Evaluation,treatment, and prevention of vitamin D deficiency; an Endocrine Society clinical practice guideline. JCEM. 2010; 96(7):1911-30. PERFORMED BY: [place] [address] PATHOLOGIST ELECTRICAL DESIGN TECHNOLOGIST KRISHAN PAEZ M.D. Performed By: #### V [id number], [id number], PROCRERAT, FE and TIBC, URIC, URMACRERAT, UA, MG, PTH, RENAL, CBCNO, GEENA #### [facility] [address] Vitamin D+Metabolites [Mass/ volume] in Serum or PlasmaOrdered By: Halle Mac on 11-18-2024 Vitamin D+Metabolites [Mass/Vol] 23.9 ng/mL Low 30-100 [facility] Comment on above: VITAMIN D STATUS 25( OH)VITAMIN D RANGE (ng/mL) Deficient <20 Insufficient 20 to <30Sufficient 30 to 100Reference: Karen MF,Nicole NC, Ed LI, et al. Evaluation,treatment, and prevention of vitamin D deficiency; an Endocrine Society clinical practice guideline. JCEM. 2010; 96(7):1911-30. pH of Urine by Test stripOrd ered By: Halle Mac on 11-18-2024 pH (U) 5.0 [pH] 5.0-9.0 [facility] Comment on above: Order Comment: Name Collection Type:: Clean-Voided Midstream Performed By: #### V [id number], [id number], PROCRERAT, FE and TIBC, URIC, URMACRERAT, UA, MG, PTH, RENAL, CBCNO, GEENA #### [address] [place] ROZ PERF SPECT REST STRon 11-17-2024 [place] [address] Nuclear Medicine Report Signed Patient: SHERLY HUMPHREYS MR#: [id number] : 1970 Acct:[id number] Age/Sex: 53 / F ADM Date: 11/13/24 Loc: [place] Attending Dr: Tk Godoy M.D. Ordering Physician: Tk Godoy M.D. Date of Service: 11/13/24 Procedure(s): NM roz perf SPECT rest str Accession Number(s): [id number] cc: Janene Lew ELECTRIC MOTOR ASSEMBLER AND TESTER; Tk Godoy M.D. Patient Name: SHERLY HUMPHREYS MR#: [id number] : 1970 Exam Date: 11/13/2024 Ordering Doctor: [...] the study was pending per attending physician [facility] . For more details please see [...] Signed By: 11/17/24 1002 DD/ 1001 TD/TT: Orchestra Leader: [facility] Radiology, Radiologi MD erasmo - 11/17/2024 The [place] [id number] Nuclear Medicine Report Signed Patient: SHERLY HUMPHREYS MR#: [id number] : 1970 Acct:[id number] Age/Sex: 53 / F ADM Date: 11/13/24 Loc: JOSE M Attending Dr: Tk Godoy M.D. Ordering Physician: Tk Godoy M.D. Date of Service: 11/13/24 Procedure(s): NM roz perf SPECT rest str Accession Number(s): [id number] cc: Janene Lew NP; Tk Godoy M.D. Patient Name: SHERLY HUMPHREYS MR#: [id number] : 1970 Exam Date: 11/13/2024 Ordering Doctor: [...] the study was pending per attending physician [facility] . For more details please see [...] Signed By: 11/17/24 1002 DD/ 1001 TD/TT: Orchestra Leader: [facility] Radiology Study observation (narrative) [facility] NM ROZ PERF SPECT REST STROr dered By: Radiologist Radiology on 11-17-2024 [facility] Work Phone: Orders Onlyon 11-17-2024 Orders Only [id number] Nithin Humprheys 1970 F Date Provider Department Center 11/17/2024 [id number], HISTORICAL CARD [facility] Family History Problem Relation Age of Onset Cancer Mother Heart attack Father Family Status - Relation Status Age at Mother Father Normal [facility] HbA1c (Bld) [Mass fraction]o n 11-03-2024 Interpretation and review of laboratory results Normal [facility] - Hematology and Cell countson 11-03-2024 HbA1c (Bld) [Mass fraction] 5.2 % [facility] Office Visiton 10-16-2024 Follow-up visit [id number] SahraNithin Patel 1970 F Date Provider Department Center 10/16/2024 271-TK GODOY CARD [facility] Family History Problem Relation Age of Onset Cancer Mother Heart attack Father Family Status - Relation Status Age at Mother Father Level of Service:82355 [place] OFFICE/OUTPATIENT ESTABLISHED MOD MDM 30 MIN Normal [facility] ALL CBC WITH AUTO DIFFon BASOPHILS ABSOLUTE AUTO 0.1 [facility] Basophils/100 WBC (Bld) 1.1 % 0.2 - 2.0 % [facility] Eosinophils/100 WBC (Bld) 3.1 % 0.9 - 7.0 % [facility] Erythrocyte distribution width (RBC) [Ratio] 12.9 % 11.0 - 15.0 % [facility] Hematocrit (Bld) [Volume fraction] 33.2 % Low 36.0 - 48.0 % [facility] Hemoglobin (Bld) [Mass/Vol] 11.1 g/dL Low 12.0 - 16.0 g/dL [facility] IMMATURE GRANULOCYTES ABS AUTO 0.01 [facility] Immature granulocytes/100 WBC (Bld) 0.2 % 0.0 - 0.5 % [facility] Interpretation and review of laboratory results Abnormal [facility] LYMPHOCYTES ABSOLUTE AUTO 1.7 [facility] Lymphocytes/100 WBC (Bld) 38.2 % 20.5 - 60.0 % [facility] MCH (RBC) [Entitic mass] 30.1 pg 26.7 - 34.0 pg [facility] MCHC (RBC) [Mass/Vol] 33.4 g/dL 29.9 - 35.2 g/dL [facility] MCV (RBC) [Entitic vol] 90 fL 81.0 - 99.0 fL [facility] MONOCYTES ABSOLUTE AUTO 0.3 [facility] Monocytes/100 WBC (Bld) 7 % 1.7 - 12.0 % [facility] NEUTROPHILS ABSOLUTE AUTO 2.2 [facility] Neutrophils/100 WBC (Bld) 50.4 % 43.0 - 75.0 % [facility] Healthcare Platelet mean volume (Bld) [Entitic vol] 11.2 fL 9.5 - 13.5 fL [facility] TB EO # 0.1 [facility] Healthcare TBH PLT 234 [facility] Healthcare TB RBC 3.69 Low [facility] WBC 4.5 [facility] ECG 12-LEADon 10-07-2024 [place] [address] Electrocardiograph Report Signed Patient: SHERLY HUMPHREYS MR#: [id number] : 1970 Acct:[id number] Age/Sex: 53 / F ADM Date: 10/07/24 Loc: [facility] Attending Dr: Marcella Conway M.D. Ordering Physician: Marcella Conway M.D. 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 Measurements Intervals [place] Rate: 51 P: 30 FL: 182 QRS: [...] Dictated By: LITO EDEN Signed By: 10/07/24 8686 DD/ 1001 TD/TT: Orchestra Leader: [facility] Radiology, Radiologi MD erasmo - 10/07/[address] [address] Electrocardiograph Report Signed Patient: SHERLY HUMPHREYS MR#: [id number] : 1970 Acct:[id number] Age/Sex: 53 / F ADM Date: 10/07/24 Loc: [facility] Attending Dr: Marcella Conway M.D. Ordering Physician: Marcella Conway M.D. Date of Service: 10/07/24 Procedure(s): ECG 12 lead Accession Number(s): [id number] cc: The [facility] Test Date: 2024-10-07 Pat Name: SHERLY HUMPHREYS Department: Room: - Gender: Female Tank Builder: : 1970 Requested By: 1822 Order Number: [id number] Reading MD: LITO EDEN M.D. Measurements Intervals [place] Rate: 51 P: 30 FL: 182 QRS: [...] Dictated By: LITO EDEN Signed By: 10/07/24 7086 DD/ 1001 TD/TT: Orchestra Leader: [facility] Radiology Study observation (narrative) [facility] ECG 12-LEADOrdered By: Radio logist Radiology on 10-07-2024 [facility] Healthcare Work Phone: XR CHEST 2Von 10-07-[address] [address] XRay Report Signed Patient: SHERLY HUMPHREYS MR#: [id number] : 1970 Acct:[id number] Age/Sex: 53 / F ADM Date: 10/07/24 Loc: PST Attending Dr: Marcella Conway M.D. Ordering Physician: Marcella Conway M.D. Date of Service: 10/07/24 Procedure(s): XR chest 2V Accession Number(s): [id number] cc: Janene Lew NP; Marcella Conway M.D. The [place] [address] Patient Name: SHERLY HUMPHREYS MRN: [facility]:[id number] date: 1970 Sex: F Assigned Patient Location: [facility] Current Patient Location: [facility] Accession/Order Number: [id number] Exam Date: 10/07/2024 12:58 Report Date: 10/07/2024 12:59 At the request of: MARCELLA CONWAY MD Procedure: XR chest 2V Chest 2 views CLINICAL HISTORY: Pre Op COMPARISON: Chest 07/05/2024 FINDINGS: Heart normal in size. Lungs are clear. No free air. XR/XR chest 2V IMPRESSION: NO ACUTE CARDIOPULMONARY ABNORMALITY. Impression dictated by: Kip Mon Jr., D.OGerardo 10/07/2024 12:59 PM Dictation Location: [place] [address] Electronically authenticated by: [id number] Y Date: 10/07/2024 12:59 Dictated By: Kip Mon M.D. Signed By: 10/07/24 1302 DD/ 1259 TD/TT: Orchestra Leader: [facility] Viviana Segura MD - 10/07/2024 [place] [address] XRay Report Signed Patient: SHERLY HUMPHREYS MR#: [id number] : 1970 Acct:[id number] Age/Sex: 53 / F ADM Date: 10/07/24 Loc: PST Attending Dr: Marcella Conway M.D. Ordering Physician: Marcella Conway M.D. Date of Service: 10/07/24 Procedure(s): XR chest 2V Accession Number(s): [id number] cc: Janene Lew NP; Marcella Conway M.D. [place] [id number] Patient Name: SHERLY HUMPHREYS MRN: [facility]:[id number] date: 1970 Sex: F Assigned Patient Location: SURGOUT Current Patient Location: [facility] Accession/Order Number: [id number] Exam Date: 10/07/2024 12:58 Report Date: 10/07/2024 12:59 At the request of: MARCELLA CONWAY MD Procedure: XR chest 2V Chest 2 views CLINICAL HISTORY: Pre Op COMPARISON: Chest 07/05/2024 FINDINGS: Heart normal in size. Lungs are clear. No free air. XR/XR chest 2V IMPRESSION: NO ACUTE CARDIOPULMONARY ABNORMALITY. Impression dictated by: Kip Mon Jr., DGerardoOGerardo 10/07/2024 12:59 PM Dictation Location: [place] [address] Electronically authenticated by: [id number] Y Date: 10/07/2024 12:59 Dictated By: Kip Mon M.D. Signed By: 10/07/24 1302 DD/ 1259 TD/TT: Orchestra Leader: [facility] Radiology Study observation (narrative) [facility] XR CHEST 2VOrdered By: Radio [facility] on 10-07-2024 [facility] Work Phone: ALL CBC WITH AUTO DIFFon BASOPHILS ABSOLUTE AUTO 0.1 [facility] Basophils/100 WBC (Bld) 0.8 % 0.2 - 2.0 % [facility] Eosinophils/100 WBC (Bld) 3.2 % 0.9 - 7.0 % [facility] Erythrocyte distribution width (RBC) [Ratio] 13 % 11.0 - 15.0 % [facility] Hematocrit (Bld) [Volume fraction] 33.6 % Low 36.0 - 48.0 % [facility] Hemoglobin (Bld) [Mass/Vol] 10.9 g/dL Low 12.0 - 16.0 g/dL [facility] IMMATURE GRANULOCYTES ABS AUTO 0.01 [facility] Immature granulocytes/100 WBC (Bld) 0.2 % 0.0 - 0.5 % [facility] Interpretation and review of laboratory results Abnormal [facility] LYMPHOCYTES ABSOLUTE AUTO 2.8 [facility] Lymphocytes/100 WBC (Bld) 46.4 % 20.5 - 60.0 % [facility] MCH (RBC) [Entitic mass] 30.2 pg 26.7 - 34.0 pg [facility] MCHC (RBC) [Mass/Vol] 32.4 g/dL 29.9 - 35.2 g/dL [facility] MCV (RBC) [Entitic vol] 93.1 fL 81.0 - 99.0 fL [facility] MONOCYTES ABSOLUTE AUTO 0.4 [facility] Monocytes/100 WBC (Bld) 6.6 % 1.7 - 12.0 % [facility] NEUTROPHILS ABSOLUTE AUTO 2.5 [facility] Neutrophils/100 WBC (Bld) 42.8 % Low 43.0 - 75.0 % [facility] Platelet mean volume (Bld) [Entitic vol] 10.8 fL 9.5 - 13.5 fL [facility] TBH EO # 0.2 [facility] TB PLT 256 [facility] RBC 3.61 Low [facility] WBC 5.9 [facility] XR Hip - right [address] [place] [address] XRay Report Signed Patient: SHERLY HUMPHREYS MR#: [id number] : 1970 Acct:[id number] Age/Sex: 53 / F ADM Date: 08/28/24 Loc: RAD Attending Dr: Elizabeth Meneses NP Ordering Physician: Elizabeth Meneses NP Date of Service: 08/28/24 Procedure(s): XR hip RT min 2V Accession Number(s): [id number] cc: Janene Lew NP; Elizabeth Meneses NP [place] [id number] Patient Name: SHERLY HUMPHREYS MRN: [facility]:[id number] date: 1970 Sex: F Assigned Patient Location: [facility] Current Patient Location: [facility] Accession/Order Number: [id number] Exam Date: 08/28/2024 10:29 Report Date: 08/28/2024 [...] Lubin M.D. 08/28/2024 10:30 AM Dictation Location: [place] [address] Electronically authenticated by: [id number] Y Date: 08/28/2024 10:30 Dictated By: Franco Lubin M.D. Signed By: 08/28/24 1032 DD/ 1030 TD/TT: Orchestra Leader: [facility] Radiology, Radiologlawrence zimmerman MD - 08/28/2024 [place] [address] XRay Report Signed Patient: SHERLY HUMPHREYS MR#: [id number] : 1970 Acct:[id number] Age/Sex: 53 / F ADM Date: 08/28/24 Loc: TAY Attending Dr: Elizabeth Meneses NP Ordering Physician: Elizabeth Meneses NP Date of Service: 08/28/24 Procedure(s): XR hip RT min 2V Accession Number(s): [id number] cc: Janene Lew NP; Elizabeth Meneses NP The [address] [address] Patient Name: SHERLY HUMPHREYS MRN: [facility]:[id number] date: 1970 Sex: F Assigned Patient Location: [facility] Current Patient Location: [facility] Accession/Order Number: [id number] Exam Date: 08/28/2024 10:29 Report Date: 08/28/2024 [...] Lubin M.D. 08/28/2024 10:30 AM Dictation Location: [place] [address] Electronically authenticated by: [id number] Y Date: 08/28/2024 10:30 Dictated By: Franco Lubin M.D. Signed By: 08/28/24 1032 DD/ 1030 TD/TT: Orchestra Leader: [facility] Radiology Study observation (narrative) [facility] XR Hip - right 3 ViewsOrdere d By: Radiologist Radiology on 08-28-2024 [facility] Work Phone: HbA1c (Bld) [Mass fraction]o n 06-16-2024 Interpretation and review of laboratory results Normal [facility] - Hematology and Cell countson 06-16-2024 HbA1c (Bld) [Mass fraction] 5.5 % [facility] Ferritinon 03-11-2024 Ferritin [Mass/Vol] 135.5 ng/mL Normal 11.0-306.8 [facility] Comment on above: Performed By: #### V [id number], [id number], PROCRERAT, FE and TIBC, URIC, URMACRERAT, UA, MG, PTH, RENAL, CBCNO, GEENA #### [address] Hemogram CBC Without Diffon 03-11-2024 Erythrocyte distribution width (RBC) [Ratio] 14.6 % Normal 11.9-15.3 [facility] Comment on above: Performed By: #### V [id number], [id number], PROCRERAT, FE and TIBC, URIC, URMACRERAT, UA, MG, PTH, RENAL, CBCNO, GEENA #### [address] Hematocrit (Bld) [Volume fraction] 34.9 % Normal 34.0-46.4 [facility] Comment on above: Performed By: #### V [id number], [id number], PROCRERAT, FE and TIBC, URIC, URMACRERAT, UA, MG, PTH, RENAL, CBCNO, GEENA #### [address] Hemoglobin (Bld) [Mass/Vol] 11.4 g/dL Low 11.8-15.4 [facility] Comment on above: Performed By: #### V [id number], [id number], PROCRERAT, FE and TIBC, URIC, URMACRERAT, UA, MG, PTH, RENAL, CBCNO, GEENA #### [address] MCH (RBC) [Entitic mass] 29.7 pg Normal 24.7-34.3 [facility] Comment on above: Performed By: #### V [id number], [id number], PROCRERAT, FE and TIBC, URIC, URMACRERAT, UA, MG, PTH, RENAL, CBCNO, GEENA #### [address] MCV (RBC) [Entitic vol] 91.3 fL Normal 80-100 [facility] Comment on above: Performed By: #### V [id number], [id number], PROCRERAT, FE and TIBC, URIC, URMACRERAT, UA, MG, PTH, RENAL, CBCNO, GEENA #### [address] Mean Corpuscular HGB Conc 32.6 g/dL Normal 32.0-35.0 [facility] Comment on above: Performed By: #### V [id number], [id number], PROCRERAT, FE and TIBC, URIC, URMACRERAT, UA, MG, PTH, RENAL, CBCNO, GEENA #### [address] Platelet mean volume (Bld) [Entitic vol] 8.7 fL Normal 6.3-10.7 [facility] Comment on above: Result Comment: PERF ORMED BY: [place] [address] PATHOLOGIST ELECTRICAL DESIGN TECHNOLOGIST SHANIQUE CALDERON M.D. Performed By: #### V [id number], [id number], PROCRERAT, FE and TIBC, URIC, URMACRERAT, UA, MG, PTH, RENAL, CBCNO, GEENA #### [address] Platelets (Bld) [#/Vol] 328 10*3/uL Normal 150-450 [facility] Comment on above: Performed By: #### V [id number], [id number], PROCRERAT, FE and TIBC, URIC, URMACRERAT, UA, MG, PTH, RENAL, CBCNO, GEENA #### [address] RBC (Bld) [#/Vol] 3.83 10*6/uL Normal 3.60-5.00 [facility] Comment on above: Performed By: #### V [id number], [id number], PROCRERAT, FE and TIBC, URIC, URMACRERAT, UA, MG, PTH, RENAL, CBCNO, GEENA #### [address] WBC (Bld) [#/Vol] 5.1 10*3/uL Normal 3.8-11.6 [facility] Comment on above: Performed By: #### V [id number], [id number], PROCRERAT, FE and TIBC, URIC, URMACRERAT, UA, MG, PTH, RENAL, CBCNO, GEENA #### [facility] [address] Iron and TIBC Profileon 02-15 % Iron Saturation 30.1 % Normal 20-50 [facility] Comment on above: Performed By: #### V [id number], [id number], PROCRERAT, FE and TIBC, URIC, URMACRERAT, UA, MG, PTH, RENAL, CBCNO, GEENA #### [facility] [address] Iron [Mass/Vol] 118 ug/dL Normal 50-212 [facility] Comment on above: Performed By: #### V [id number], [id number], PROCRERAT, FE and TIBC, URIC, URMACRERAT, UA, MG, PTH, RENAL, CBCNO, GEENA #### [facility] [address] Total Iron Binding Capacity 392 ug/dL Normal 255-450 [facility] Comment on above: Performed By: #### V [id number], [id number], PROCRERAT, FE and TIBC, URIC, URMACRERAT, UA, MG, PTH, RENAL, CBCNO, GEENA #### [address] Transferrin [Mass/Vol] 280 mg/dL Normal 203-362 [facility] Comment on above: Performed By: #### V [id number], [id number], PROCRERAT, FE and TIBC, URIC, URMACRERAT, UA, MG, PTH, RENAL, CBCNO, GEENA #### [place] [id number] [facility] Magnesiumon 03-11-2024 Magnesium [Mass/Vol] 1.9 mg/dL Normal 1.9-2.7 [facility] Comment on above: Performed By: #### V [id number], [id number], PROCRERAT, FE and TIBC, URIC, URMACRERAT, UA, MG, PTH, RENAL, CBCNO, GEENA #### [address] MicroAlb Creat Ratio,Uon Albumin DL <= 20 mg/L (U) [Mass/Vol] mg/dL Normal 0.0-1.8 [facility] Comment on above: Performed By: #### V [id number], [id number], PROCRERAT, FE and TIBC, URIC, URMACRERAT, UA, MG, PTH, RENAL, CBCNO, GEENA #### [address] Creatinine, Urine (Random) 57.00 mg/dL Normal [facility] Comment on above: Result Comment: No r eference range established Performed By: #### V [id number], [id number], PROCRERAT, FE and TIBC, URIC, URMACRERAT, UA, MG, PTH, RENAL, CBCNO, GEENA #### [address] Microalbumin/Creatinin e Ratio Not performed Normal 0.0-30.0 [facility] Comment on above: Performed By: #### V [id number], [id number], PROCRERAT, FE and TIBC, URIC, URMACRERAT, UA, MG, PTH, RENAL, CBCNO, GEENA #### [address] Parathyroid Hormone Intacton 03-11-2024 Parathyroid Hormone Intact 30.6 pg/mL Normal 12-88 [facility] Comment on above: Result Comment: PERF ORMED BY: [place] [address] PATHOLOGIST ELECTRICAL DESIGN TECHNOLOGIST SHANIQUE CALDERON M.D. Performed By: #### V [id number], [id number], PROCRERAT, FE and TIBC, URIC, URMACRERAT, UA, MG, PTH, RENAL, CBCNO, GEENA #### [facility] [address] Protein Creat Ratio Ur Rando mon 03-11-2024 Protein (U) [Mass/Vol] 5 mg/dL Normal 0-9 [facility] Comment on above: Performed By: #### V [id number], [id number], PROCRERAT, FE and TIBC, URIC, URMACRERAT, UA, MG, PTH, RENAL, CBCNO, GEENA #### [address] Urine Protein/Creatinine Ratio 88 mg/g{Cre} Normal 0-200 [facility] Comment on above: Result Comment: PERF ORMED BY: [place] [address] PATHOLOGIST ELECTRICAL DESIGN TECHNOLOGIST SHANIQUE CALDERON M.D. Performed By: #### V [id number], [id number], PROCRERAT, FE and TIBC, URIC, URMACRERAT, UA, MG, PTH, RENAL, CBCNO, GEENA #### [facility] [address] Renal Function Panelon 03-11 Albumin [Mass/Vol] 3.9 g/dL Normal 3.5-5.7 [facility] Comment on above: Performed By: #### V [id number], [id number], PROCRERAT, FE and TIBC, URIC, URMACRERAT, UA, MG, PTH, RENAL, CBCNO, GEENA #### [address] Anion gap [Moles/Vol] 12.5 mmol/L Normal 6.0-15.0 [facility] Comment on above: Performed By: #### V [id number], [id number], PROCRERAT, FE and TIBC, URIC, URMACRERAT, UA, MG, PTH, RENAL, CBCNO, GEENA #### [address] Calcium [Mass/Vol] 9.4 mg/dL Normal 8.6-10.3 [facility] Comment on above: Performed By: #### V [id number], [id number], PROCRERAT, FE and TIBC, URIC, URMACRERAT, UA, MG, PTH, RENAL, CBCNO, GEENA #### [address] Chloride [Moles/Vol] 110 mmol/L High 98-107 [facility] Comment on above: Performed By: #### V [id number], [id number], PROCRERAT, FE and TIBC, URIC, URMACRERAT, UA, MG, PTH, RENAL, CBCNO, GEENA #### [address] CO2 [Moles/Vol] 25.0 mmol/L Normal 21.0-31.0 [facility] Comment on above: Performed By: #### V [id number], [id number], PROCRERAT, FE and TIBC, URIC, URMACRERAT, UA, MG, PTH, RENAL, CBCNO, GEENA #### [address] Creatinine [Mass/Vol] 1.50 mg/dL High 0.60-1.20 [facility] Comment on above: Performed By: #### V [id number], [id number], PROCRERAT, FE and TIBC, URIC, URMACRERAT, UA, MG, PTH, RENAL, CBCNO, GEENA #### [address] Estimated GFR 41.412 mL/Min Normal [facility] Comment on above: Performed By: #### V [id number], [id number], PROCRERAT, FE and TIBC, URIC, URMACRERAT, UA, MG, PTH, RENAL, CBCNO, GEENA #### [address] Glucose [Mass/Vol] 88 mg/dL Normal 70-100 [facility] Comment on above: Result Comment: [facility] Glucose Reference Range is dependent on time and content of last meal. Glucose of more than 200 mg/dL in a nonstressed, ambulatory subject supports the diagnosis of Diabetes Mellitus. ADA recommended reference range Performed By: #### V [id number], [id number], PROCRERAT, FE and TIBC, URIC, URMACRERAT, UA, MG, PTH, RENAL, CBCNO, GEENA #### [address] Phosphate [Mass/Vol] 2.7 mg/dL Normal 2.5-4.5 [facility] Comment on above: Performed By: #### V [id number], [id number], PROCRERAT, FE and TIBC, URIC, URMACRERAT, UA, MG, PTH, RENAL, CBCNO, GEENA #### [address] Potassium [Moles/Vol] 4.5 mmol/L Normal 3.5-5.1 [facility] Comment on above: Performed By: #### V [id number], [id number], PROCRERAT, FE and TIBC, URIC, URMACRERAT, UA, MG, PTH, RENAL, CBCNO, GEENA #### [address] Sodium [Moles/Vol] 143 mmol/L Normal 136-145 [facility] Comment on above: Performed By: #### V [id number], [id number], PROCRERAT, FE and TIBC, URIC, URMACRERAT, UA, MG, PTH, RENAL, CBCNO, GEENA #### [place] [address] [place] Urea nitrogen [Mass/Vol] 18 mg/dL Normal 7-25 [facility] Comment on above: Performed By: #### V [id number], [id number], PROCRERAT, FE and TIBC, URIC, URMACRERAT, UA, MG, PTH, RENAL, CBCNO, GEENA #### [facility] [address] Uric Acidon 03-11-2024 Urate [Mass/Vol] 6.3 mg/dL Normal 2.3-6.6 [facility] Comment on above: Performed By: #### V [id number], [id number], PROCRERAT, FE and TIBC, URIC, URMACRERAT, UA, MG, PTH, RENAL, CBCNO, GEENA #### [facility] [address] Urinalysison 03-11-2024 Appearance (U) Clear Normal Clear [facility] Comment on above: Order Comment: Name Collection Type:: Clean-Voided Midstream Performed By: #### V [id number], [id number], PROCRERAT, FE and TIBC, URIC, URMACRERAT, UA, MG, PTH, RENAL, CBCNO, GEENA #### [address] Bilirubin,Urine Negative Normal Negative [facility] Comment on above: Order Comment: Name Collection Type:: Clean-Voided Midstream Performed By: #### V [id number], [id number], PROCRERAT, FE and TIBC, URIC, URMACRERAT, UA, MG, PTH, RENAL, CBCNO, GEENA #### [address] Color (U) Light-Yellow Normal Yellow [facility] Comment on above: Order Comment: Name Collection Type:: Clean-Voided Midstream Performed By: #### V [id number], [id number], PROCRERAT, FE and TIBC, URIC, URMACRERAT, UA, MG, PTH, RENAL, CBCNO, GEENA #### [facility] [address] Glucose Ql (U) Normal Normal Normal [facility] Comment on above: Order Comment: Name Collection Type:: Clean-Voided Midstream Performed By: #### V [id number], [id number], PROCRERAT, FE and TIBC, URIC, URMACRERAT, UA, MG, PTH, RENAL, CBCNO, GEENA #### [address] Ketones Ql (U) Negative Normal Negative [facility] Comment on above: Order Comment: Name Collection Type:: Clean-Voided Midstream Performed By: #### V [id number], [id number], PROCRERAT, FE and TIBC, URIC, URMACRERAT, UA, MG, PTH, RENAL, CBCNO, GEENA #### [address] Leukocyte esterase Test strip Ql (U) Negative Normal Negative [facility] Comment on above: Order Comment: Name Collection Type:: Clean-Voided Midstream Performed By: #### V [id number], [id number], PROCRERAT, FE and TIBC, URIC, URMACRERAT, UA, MG, PTH, RENAL, CBCNO, GEENA #### [address] Nitrite,Urine Negative Normal Negative [facility] Comment on above: Order Comment: Name Collection Type:: Clean-Voided Midstream Performed By: #### V [id number], [id number], PROCRERAT, FE and TIBC, URIC, URMACRERAT, UA, MG, PTH, RENAL, CBCNO, GEENA #### [address] Occult Blood,Urine Negative Normal Negative [facility] Comment on above: Order Comment: Name Collection Type:: Clean-Voided Midstream Result Comment: PERF ORMED BY: [place] [address] PATHOLOGIST ELECTRICAL DESIGN TECHNOLOGIST SHANIQUE CALDERON M.D. Performed By: #### V [id number], [id number], PROCRERAT, FE and TIBC, URIC, URMACRERAT, UA, MG, PTH, RENAL, CBCNO, GEENA #### [address] pH (U) 5.5 [pH] Normal 5.0-9.0 [facility] Comment on above: Order Comment: Name Collection Type:: Clean-Voided Midstream Performed By: #### V [id number], [id number], PROCRERAT, FE and TIBC, URIC, URMACRERAT, UA, MG, PTH, RENAL, CBCNO, GEENA #### [facility] [address] Protein,Urine Negative Normal Negative [facility] Comment on above: Order Comment: Name Collection Type:: Clean-Voided Midstream Performed By: #### V [id number], [id number], PROCRERAT, FE and TIBC, URIC, URMACRERAT, UA, MG, PTH, RENAL, CBCNO, GEENA #### [address] Specificy Ault,Urine 1.011 Normal 1.001-1.030 [facility] Comment on above: Order Comment: Name Collection Type:: Clean-Voided Midstream Performed By: #### V [id number], [id number], PROCRERAT, FE and TIBC, URIC, URMACRERAT, UA, MG, PTH, RENAL, CBCNO, GEENA #### [address] Urobilinogen,Urine Normal Normal Normal [facility] Comment on above: Order Comment: Name Collection Type:: Clean-Voided Midstream Performed By: #### V [id number], [id number], PROCRERAT, FE and TIBC, URIC, URMACRERAT, UA, MG, PTH, RENAL, CBCNO, GEENA #### [address] Vit. B12/Folate Profileon Cobalamin (Vitamin B12) [Mass/Vol] 4548 pg/mL High 180-914 [facility] Comment on above: Performed By: #### V [id number], [id number], PROCRERAT, FE and TIBC, URIC, URMACRERAT, UA, MG, PTH, RENAL, CBCNO, GEENA #### [facility] [address] [place] [id number] [facility] Folate 8.2 ng/mL Normal >5.9 [facility] Comment on above: Result Comment: Maria te reference range: >5.9 ng/ml The WHO technical consultation on folate and vitamin b12 deficiencies has determined that folate concentrations less than 4 ng/ml are considered deficient. Performed By: #### V [id number], [id number], PROCRERAT, FE and TIBC, URIC, URMACRERAT, UA, MG, PTH, RENAL, CBCNO, GEENA #### [facility] [address] [place] [id number] [facility] Vitamin D 25 Hydroxy Totalon 03-11-2024 Vitamin D 25 Hydroxy Total 25.0 ng/mL Low 30-100 [facility] Comment on above: Result Comment: AWAIS MIN D STATUS 25(OH)VITAMIN D RANGE (ng/mL) Deficient <20 Insufficient 20 to <30 Sufficient 30 to 100 Reference: Karen MF,Nicole NC, Ed LI, et al. Evaluation,treatment, and prevention of vitamin D deficiency; an Endocrine Society clinical practice guideline. JCEM. 2010; 96(7):1911-30. PERFORMED BY: [place] [address] PATHOLOGIST ELECTRICAL DESIGN TECHNOLOGIST SHANIQUE CALDERON M.D. Performed By: #### V [id number], [id number], PROCRERAT, FE and TIBC, URIC, URMACRERAT, UA, MG, PTH, RENAL, CBCNO, GEENA #### [facility] [address] [place] [id number] [facility] HbA1c (Bld) [Mass fraction]o n 02-19-2024 Interpretation and review of laboratory results Normal [facility] - Hematology and Cell countson 02-19-2024 HbA1c (Bld) [Mass fraction] 5.1 % [facility] ALL CBC WITH AUTO DIFFon BASOPHILS ABSOLUTE AUTO 0.1 [facility] Basophils/100 WBC (Bld) 0.6 % 0.2 - 2.0 % [facility] Eosinophils/100 WBC (Bld) 1.4 % 0.9 - 7.0 % [facility] Erythrocyte distribution width (RBC) [Ratio] 14.1 % 11.0 - 15.0 % [facility] Hematocrit (Bld) [Volume fraction] 40.0 % 36.0 - 48.0 % [facility] Hemoglobin (Bld) [Mass/Vol] 12.4 g/dL 12.0 - 16.0 g/dL [facility] IMMATURE GRANULOCYTES ABS AUTO 0.03 [facility] Immature granulocytes/100 WBC (Bld) 0.4 % 0.0 - 0.5 % [facility] LYMPHOCYTES ABSOLUTE AUTO 1.9 [facility] Lymphocytes/100 WBC (Bld) 24.7 % 20.5 - 60.0 % [facility] MCH (RBC) [Entitic mass] 28.4 pg 26.7 - 34.0 pg [facility] MCHC (RBC) [Mass/Vol] 31.0 g/dL 29.9 - 35.2 g/dL [facility] MCV (RBC) [Entitic vol] 91.5 fL 81.0 - 99.0 fL [facility] MONOCYTES ABSOLUTE AUTO 0.4 [facility] Monocytes/100 WBC (Bld) 4.6 % 1.7 - 12.0 % [facility] NEUTROPHILS ABSOLUTE AUTO 5.3 [facility] Neutrophils/100 WBC (Bld) 68.3 % 43.0 - 75.0 % [facility] Platelet mean volume (Bld) [Entitic vol] 11.1 fL 9.5 - 13.5 fL [facility] EO # 0.1 [facility] PLT 261 [facility] RBC 4.37 [facility] WBC 7.8 [facility] Healthcare Office Visiton 12-18-2023 Follow-up visit [id number] Nithin Humphreys 1970 F Date Provider Department Center 12/18/2023 Pranay-TK [facility] No family history on file Level of Service:67367 [place] OFFICE/OUTPATIENT ESTABLISHED LOW MDM 20 MIN Normal [facility] Glucose Glucometer (BldC) [M ass/Vol]Ordered By: Ban Clemente on 11-01-2023 Glucose [Mass/Vol] 107 mg/dL [facility] Comment on above: Random Glucose Refer ence Range is dependent on time and content of last meal. Glucose of more than 200 mg/dL in a nonstressed, ambulatory subject supports the diagnosis of Diabetes Mellitus. No Panel InformationOrdered By: Ban Clemente on 11-01-2023 Bedside Glucose Comment Glu2: cleaned meter [facility] Calcium [Mass/volume] in Ser um or PlasmaOrdered By: Fernando Rosenberg on 10-11-2023 Calcium [Mass/Vol] 9.7 mg/dL 8.6-10.3 [facility] Carbon dioxide, total [Moles /volume] in Serum or PlasmaOrdered By: Fernando Rosenberg on 10-11-2023 CO2 [Moles/Vol] 26.7 mmol/L 21.0-31.0 [facility] Chloride [Moles/volume] in S brunilda or PlasmaOrdered By: Fernando Rosenberg on 10-11-2023 Chloride [Moles/Vol] 107 mmol/L 98-107 [facility] Creatinine [Mass/volume] in Serum or PlasmaOrdered By: Fernando Rosenberg on 10-11-2023 Creatinine [Mass/Vol] 2.04 mg/dL High 0.60-1.20 [facility] Glucose [Mass/volume] in Ser um or PlasmaOrdered By: Fernando Rosenberg on 10-11-2023 Glucose [Mass/Vol] 96 mg/dL 70-100 [facility] Comment on above: ADA recommended refe rence rangeRandom Glucose Reference Range is dependent on time and content of last meal. Glucose of more than 200 mg/dL in a nonstressed, ambulatory subject supports the diagnosis of Diabetes Mellitus. No Panel InformationOrdered By: Fernando Rosenberg on 10-11-2023 Estimated GFR (CKD-EPI) 28.812 mL/Min [facility] Creatinine Clearance (Chem N/A [facility] Potassium [Moles/volume] in Serum or PlasmaOrdered By: Fernando Rosenberg on 10-11-2023 Potassium [Moles/Vol] 5.2 mmol/L High 3.5-5.1 [facility] Serum or plasma anion gap de terminationOrdered By: Fernando Rosenberg on 10-11-2023 Anion gap [Moles/Vol] 11.5 mmol/L 6.0-15.0 [facility] Sodium [Moles/volume] in Ser um or PlasmaOrdered By: Fernando Doamekpor on 10-11-2023 Sodium [Moles/Vol] 140 mmol/L 136-145 [facility] Urea nitrogen [Mass/volume] in Serum or PlasmaOrdered By: Fernando Elderamekpor on 10-11-2023 Urea nitrogen [Mass/Vol] 41 mg/dL High 7-25 [facility] Basophils Auto (Bld) [#/Vol] Ordered By: Fernando Rosenberg on 10-02-2023 Basophils (Bld) [#/Vol] 0.0 10*3/uL 0.0-0.2 [facility] Basophils/100 WBC Auto (Bld) Ordered By: Fernando Rosenberg on 10-02-2023 Basophils/100 WBC (Bld) 0.8 % . [facility] Calcium [Mass/volume] in Ser um or PlasmaOrdered By: Fernando Rosenberg on 10-02-2023 Calcium [Mass/Vol] 9.0 mg/dL 8.6-10.3 [facility] Carbon dioxide, total [Moles /volume] in Serum or PlasmaOrdered By: Fernando Rosenberg on 10-02-2023 CO2 [Moles/Vol] 26.9 mmol/L 21.0-31.0 [facility] Chloride [Moles/volume] in S brunilda or PlasmaOrdered By: Fernando Doamekpor on 10-02-2023 Chloride [Moles/Vol] 110 mmol/L High 98-107 [facility] Creatinine [Mass/volume] in Serum or PlasmaOrdered By: Fernando Doamekpor on 10-02-2023 Creatinine [Mass/Vol] 1.52 mg/dL High 0.60-1.20 [facility] Comment on above: Delta: 2.27 on 09/30-0758 Eosinophils Auto (Bld) [#/Vo l]Ordered By: Fernando Rosenberg on 10-02-2023 Eosinophils (Bld) [#/Vol] 0.2 10*3/uL 0.0-0.45 [facility] Eosinophils/100 WBC Auto (Bl d)Ordered By: Fernando Rosenberg on 10-02-2023 Eosinophils/100 WBC (Bld) 3.4 % . [facility] Erythrocyte distribution wid th Auto (RBC) [Ratio]Ordered By: Fernando Rosenberg on 10-02-2023 Erythrocyte distribution width (RBC) [Ratio] 14.3 % 11.9-15.3 [facility] Glucose Glucometer (dC) [M ass/Vol]Ordered By: Fernando Rosenberg on 10-02-2023 Glucose [Mass/Vol] 93 mg/dL [facility] Comment on above: Random Glucose Refer ence Range is dependent on time and content of last meal. Glucose of more than 200 mg/dL in a nonstressed, ambulatory subject supports the diagnosis of Diabetes Mellitus. Glucose [Mass/volume] in Ser um or PlasmaOrdered By: Fernando Rosenberg on 10-02-2023 Glucose [Mass/Vol] 85 mg/dL 70-100 [facility] Comment on above: ADA recommended refe rence rangeRandom Glucose Reference Range is dependent on time and content of last meal. Glucose of more than 200 mg/dL in a nonstressed, ambulatory subject supports the diagnosis of Diabetes Mellitus. Hematocrit Auto (Bld) [Volum e fraction]Ordered By: Fernando Rosenberg on 10-02-2023 Hematocrit (Bld) [Volume fraction] 31.5 % Low 34.0-46.4 [facility] Hemoglobin [Mass/volume] in BloodOrdered By: Fernando Rosenberg on 10-02-2023 Hemoglobin (Bld) [Mass/Vol] 10.4 g/dL Low 11.8-15.4 [facility] Leukocytes [#/volume] correc joaquin for nucleated erythrocytes in Blood by Automated counOrdered By: Fernando Rosenberg on 10-02-2023 WBC corrected for nucl RBC Auto (Bld) [#/Vol] 4.8 10*3/uL 3.8-11.6 [facility] Lymphocytes Auto (Bld) [#/Vo l]Ordered By: Fernando Rosenberg on 10-02-2023 Lymphocytes (Bld) [#/Vol] 2.1 10*3/uL 1.00-4.8 [facility] Lymphocytes/100 WBC Auto (Bl d)Ordered By: Fernando Rosenberg on 10-02-2023 Lymphocytes/100 WBC (Bld) 43.2 % . [facility] MCH Auto (RBC) [Entitic mass ]Ordered By: Fernando Rosenberg on 10-02-2023 MCH (RBC) [Entitic mass] 30.1 pg 24.7-34.3 [facility] MCHC Auto (RBC) [Mass/Vol]Or dered By: Fernando Rosenberg on 10-02-2023 MCHC (RBC) [Mass/Vol] 33.2 g/dL 32.0-35.0 [facility] MCV Auto (RBC) [Entitic vol] Ordered By: Fernando Rosenberg on 10-02-2023 MCV (RBC) [Entitic vol] 90.7 fL 80-100 [facility] Monocytes Auto (Bld) [#/Vol] Ordered By: Fernando Rosenberg on 10-02-2023 Monocytes (Bld) [#/Vol] 0.3 10*3/uL 0.0-0.8 [facility] Monocytes/100 WBC Auto (Bld) Ordered By: Fernando Rosenberg on 10-02-2023 Monocytes/100 WBC (Bld) 6.4 % . [facility] Neutrophils Auto (Bld) [#/Vo l]Ordered By: Fernando Rosenberg on 10-02-2023 Neutrophils (Bld) [#/Vol] 2.2 10*3/uL 1.8-7.7 [facility] Neutrophils/100 WBC Auto (Bl d)Ordered By: Fernando Rosenberg on 10-02-2023 Neutrophils/100 WBC (Bld) 46.2 % . [facility] No Panel InformationOrdered By: Fernando Rosenberg on 10-02-2023 Estimated GFR (CKD-EPI) 41.013 mL/Min [facility] Creatinine Clearance (Chem 60.65 [facility] Nucleated erythrocytes [Pres ence] in Blood by Automated countOrdered By: Fernando Rosenberg on 10-02-2023 Nucleated RBC Auto Ql (Bld) 0.0 /100{WBC} 0-0.5 [facility] Platelet mean volume Auto (B ld) [Entitic vol]Ordered By: Fernando Rosenberg on 10-02-2023 Platelet mean volume (Bld) [Entitic vol] 9.2 fL 6.3-10.7 [facility] Platelets Auto (Bld) [#/Vol] Ordered By: Fernando Rosenberg on 10-02-2023 Platelets (Bld) [#/Vol] 230 10*3/uL 150-450 [facility] Potassium [Moles/volume] in Serum or PlasmaOrdered By: Fernando Rosenberg on 10-02-2023 Potassium [Moles/Vol] 4.5 mmol/L 3.5-5.1 [facility] RBC Auto (Bld) [#/Vol]Ordere d By: Fernando Rosenberg on 10-02-2023 RBC (Bld) [#/Vol] 3.47 10*6/uL Low 3.60-5.00 [facility] Serum or plasma anion gap de terminationOrdered By: Fernando Rosenberg on 10-02-2023 Anion gap [Moles/Vol] 9.6 mmol/L 6.0-15.0 [facility] Sodium [Moles/volume] in Ser um or PlasmaOrdered By: Fernando Rosenberg on 10-02-2023 Sodium [Moles/Vol] 142 mmol/L 136-145 [facility] Urea nitrogen [Mass/volume] in Serum or PlasmaOrdered By: Fernando Rosenberg on 10-02-2023 Urea nitrogen [Mass/Vol] 34 mg/dL High 7-25 [facility] WBC Auto (Bld) [#/Vol]Ordere d By: Fernando Rosenberg on 10-02-2023 WBC (Bld) [#/Vol] 4.8 10*3/uL 3.8-11.6 [facility] Activated partial thrombopla stin time (aPTT) in platelet poor plasma by coagulation aOrdered By: Alma Deng on 10-01-2023 aPTT Coag (PPP) [Time] 30.1 s 25.1-36.5 [facility] Comment on above: A hematocrit value g reater than 55% may lead to inaccurate results in coagulation testing. Patients having hematocrit values >55% require a special collection tube for coagulation studies. Please contact the laboratory at [phone] for redraw instructions. Alanine aminotransferase [En zymatic activity/volume] in Serum or PlasmaOrdered By: Alma Deng on 10-01-2023 ALT [Catalytic activity/Vol] 19 U/L 7-52 [facility] Albumin [Mass/volume] in Ser um or Plasma by Bromocresol green (BCG) dye binding methoOrdered By: Alma Deng on 10-01-2023 Albumin BCG dye [Mass/Vol] 3.9 g/dL 3.5-5.7 [facility] Alkaline phosphatase [Enzyma tic activity/volume] in Serum or PlasmaOrdered By: Alma Deng on 10-01-2023 ALP [Catalytic activity/Vol] 56 U/L 34-104 [facility] Aspartate aminotransferase [ Enzymatic activity/volume] in Serum or PlasmaOrdered By: Alma Deng on 10-01-2023 AST [Catalytic activity/Vol] 29 U/L 13-39 [facility] Bacteria [Presence] in Urine by AutomatedOrdered By: Alma Deng on 10-01-2023 Bacteria Auto Ql (U) None seen [HPF] None Seen [facility] Bilirubin Test strip Ql (U)O rdered By: Alma Deng on 10-01-2023 Bilirubin Ql (U) Negative Negative [facility] Bilirubin.total [Mass/volume ] in Serum or PlasmaOrdered By: Alma Deng on 10-01-2023 Bilirubin [Mass/Vol] 0.3 mg/dL 0.3-1.0 [facility] Color Auto (U)Ordered By: Christ moreira Sowmya on 10-01-2023 Color (U) Colorless Yellow [facility] Creatinine [Mass/volume] in UrineOrdered By: Alma Deng on 10-01-2023 Creatinine (U) [Mass/Vol] 65.00 mg/dL [facility] Comment on above: No reference range e stablished Eosinophils detection in uri ne sediment by Nava stainOrdered By: Alma Deng on 10-01-2023 Eosinophils Nava stain Ql (Urine sed) 0 % 0-1 [facility] Epithelial cells.squamous [# /area] in Urine sediment by Automated countOrdered By: Alma Deng on 10-01-2023 Epithelial cells.squamous Auto (Urine sed) [#/Area] N/A [facility] Erythrocytes [#/area] in Uri ne sediment by Automated countOrdered By: Alma Deng on 10-01-2023 RBC Auto (Urine sed) [#/Area] None seen [HPF] 0-4 [facility] Globulin Calc (S) [Mass/Vol] Ordered By: Alma Deng on 10-01-2023 Globulin (S) [Mass/Vol] 2.2 g/dL [facility] Glucose [Mass/volume] in Uri ne by Test stripOrdered By: Alma Deng on 10-01-2023 Glucose Test strip (U) [Mass/Vol] Normal mg/dL Normal [facility] Hemoglobin Test strip Ql (U) Ordered By: Alma Deng on 10-01-2023 Hemoglobin Ql (U) Negative Negative [facility] Hyaline casts [#/area] in Ur ine sediment by Automated countOrdered By: Alma Deng on 10-01-2023 Hyaline casts Auto (Urine sed) [#/Area] 0-8 [LPF] 0-8 [facility] INR in Platelet poor plasma by Coagulation assayOrdered By: Alma Deng on 10-01-2023 INR Coag (PPP) [Relative time] 1.1 {INR} [facility] Comment on above: INR Therapeutic [...] on 10-01-2023 Ketones Ql (U) Negative Negative [facility] Leukocyte esterase [Presence ] in Urine by Test stripOrdered By: Alma Deng on 10-01-2023 Leukocyte esterase Test strip Ql (U) 1+ High Negative [facility] Leukocytes [#/area] in Urine sediment by Automated countOrdered By: Alma Deng on 10-01-2023 WBC Auto (Urine sed) [#/Area] 3-4 [HPF] 0-4 [facility] Mucus [Presence] in Urine by AutomatedOrdered By: Alma Deng on 10-01-2023 Mucus Auto Ql (U) Rare [LPF] [facility] Nitrite Test strip Ql (U)Ord ered By: Alma Deng on 10-01-2023 Nitrite Ql (U) Negative Negative [facility] No Panel InformationOrdered By: Fernando Rosenberg on 10-01-2023 Bedside Glucose Comment Glu2: cleaned meter [facility] Protein Test strip (U) [Mass /Vol]Ordered By: Alma Deng on 10-01-2023 Protein (U) [Mass/Vol] Negative Negative [facility] Protein [Mass/volume] in Ser um or PlasmaOrdered By: Alma Deng on 10-01-2023 Protein [Mass/Vol] 6.1 g/dL Low 6.4-8.9 [facility] Prothrombin time (PT)Ordered By: Alma Deng on 10-01-2023 PT Coag (PPP) [Time] 12.2 s 9.0-12.9 [facility] Comment on above: A hematocrit value g reater than 55% may lead to inaccurate results in coagulation testing. Patients having hematocrit values >55% require a special collection tube for coagulation studies. Please contact the laboratory at [phone] for redraw instructions. Serum or plasma albumin/glob ulin mass ratioOrdered By: Alma Deng on 10-01-2023 Albumin/Globulin [Mass ratio] 1.8 {ratio} [facility] Sodium [Moles/volume] in Uri neOrdered By: Alma Degn on 10-01-2023 Sodium (U) [Moles/Vol] 54.0 mmol/L [facility] Comment on above: No reference range e stablished Specific gravity Test strip (U) [Rel density]Ordered By: Alma Deng on 10-01-2023 Specific gravity (U) [Rel density] 1.009 1.001-1.030 [facility] Urine appearanceOrdered By: Alma Deng on 10-01-2023 Appearance (U) Clear Clear [facility] Urobilinogen Test strip (U) [Mass/Vol]Ordered By: Alma Deng on 10-01-2023 Urobilinogen (U) [Mass/Vol] Normal mg/dL Normal [facility] pH Test strip (U)Ordered By: Alma Deng on 10-01-2023 pH (U) 5.5 [pH] 5.0-9.0 [facility] Albumin [Mass/volume] in Ser um or Plasma by Bromocresol green (BCG) dye binding methoOrdered By: Halle Mac on 08-10-2023 Albumin BCG dye [Mass/Vol] 4.0 g/dL 3.5-5.7 [facility] Automated erythrocytes count in urine sediment (number/area)Ordered By: Halle Mac on 08-10-2023 RBC Auto (Urine sed) [#/Area] None seen [HPF] 0-4 [facility] Automated leukocytes count i n urine sediment (number/area)Ordered By: Halle Mac on 08-10-2023 WBC Auto (Urine sed) [#/Area] 3-4 [HPF] 0-4 [facility] Bilirubin Test strip Ql (U)O rdered By: Halle Mac on 08-10-2023 Bilirubin Ql (U) Negative Negative [facility] Calcium [Mass/volume] in Ser um or PlasmaOrdered By: Halle Mac on 08-10-2023 Calcium [Mass/Vol] 9.3 mg/dL 8.6-10.3 [facility] Carbon dioxide, total [Moles /volume] in Serum or PlasmaOrdered By: Halle Mac on 08-10-2023 CO2 [Moles/Vol] 24.8 mmol/L 21.0-31.0 [facility] Chloride [Moles/volume] in S brunilda or PlasmaOrdered By: Halle Mac on 08-10-2023 Chloride [Moles/Vol] 110 mmol/L High 98-107 [facility] Color Auto (U)Ordered By: Donald Mac on 08-10-2023 Color (U) Yellow Yellow [facility] Creatinine [Mass/volume] in Serum or PlasmaOrdered By: Halle Mac on 08-10-2023 Creatinine [Mass/Vol] 1.59 mg/dL High 0.60-1.20 [facility] Creatinine [Mass/volume] in UrineOrdered By: Halle Mac on 08-10-2023 Creatinine (U) [Mass/Vol] 92.0 mg/dL [facility] Comment on above: No reference range e stablished Erythrocyte distribution wid th Auto (RBC) [Ratio]Ordered By: Halle Mac on 08-10-2023 Erythrocyte distribution width (RBC) [Ratio] 15.1 % 11.9-15.3 [facility] Ferritin [Mass/volume] in Se rum or PlasmaOrdered By: Halle Mac on 08-10-2023 Ferritin [Mass/Vol] 62.9 ng/mL 11.0-306.8 [facility] Folate [Mass/volume] in Seru m or PlasmaOrdered By: Halle Mac on 08-10-2023 Folate [Mass/Vol] 15.7 ng/mL >5.9 [facility] Comment on above: Folate reference ran ge: >5.9 ng/mlThe WHO technical consultation on folate and vitamin [id number] has determined that folate concentrations lessthan 4 ng/ml are considered deficient. Glucose [Mass/volume] in Ser um or PlasmaOrdered By: Halle Mac on 08-10-2023 Glucose [Mass/Vol] 94 mg/dL 70-100 [facility] Comment on above: ADA recommended refe rence rangeRandom Glucose Reference Range is dependent on time and content of last meal. Glucose of more than 200 mg/dL in a nonstressed, ambulatory subject supports the diagnosis of Diabetes Mellitus. Hematocrit Auto (Bld) [Volum e fraction]Ordered By: Halle Mac on 08-10-2023 Hematocrit (Bld) [Volume fraction] 35.0 % 34.0-46.4 [facility] Hemoglobin [Mass/volume] in BloodOrdered By: Halle Mac on 08-10-2023 Hemoglobin (Bld) [Mass/Vol] 11.5 g/dL Low 11.8-15.4 [facility] Iron [Mass/volume] in Serum or PlasmaOrdered By: Halle Mac on 08-10-2023 Iron [Mass/Vol] 75 ug/dL 50-212 [facility] Iron binding capacity [Mass/ volume] in Serum or PlasmaOrdered By: Halle Mac on 08-10-2023 Iron binding capacity [Mass/Vol] 480 ug/dL High 255-450 [facility] Iron saturation [Mass Fracti on] in Serum or PlasmaOrdered By: Halle Mac on 08-10-2023 Iron saturation [Mass fraction] 15.6 % Low 20-50 [facility] Ketones Auto test strip (U) [Mass/Vol]Ordered By: Halle Mac on 08-10-2023 Ketones (U) [Mass/Vol] Negative Negative [facility] Laboratory - UrinalysisOrder ed By: Halle Mac 08-10-2023 Hyaline casts LM Ql (Urine sed) None seen [LPF] 0-8 [facility] Leukocytes [#/volume] correc joaquin for nucleated erythrocytes in Blood by Automated counOrdered By: Halle Mac on 08-10-2023 WBC corrected for nucl RBC Auto (Bld) [#/Vol] 4.0 10*3/uL 3.8-11.6 [facility] MCH Auto (RBC) [Entitic mass ]Ordered By: Halle Mac on 08-10-2023 MCH (RBC) [Entitic mass] 29.6 pg 24.7-34.3 [facility] MCHC Auto (RBC) [Mass/Vol]Or dered By: Halle Mac on 08-10-2023 MCHC (RBC) [Mass/Vol] 32.9 g/dL 32.0-35.0 [facility] MCV Auto (RBC) [Entitic vol] Ordered By: Halle Mac on 08-10-2023 MCV (RBC) [Entitic vol] 90.0 fL 80-100 [facility] Magnesium [Mass/volume] in S brunilda or PlasmaOrdered By: Halle Mac on 08-10-2023 Magnesium [Mass/Vol] 1.9 mg/dL 1.9-2.7 [facility] Nitrite Test strip Ql (U)Ord ered By: Halle Mac on 08-10-2023 Nitrite Ql (U) Negative Negative [facility] No Panel InformationOrdered By: Halle Mac on 08-10-2023 Estimated GFR (CKD-EPI) 38.856 mL/Min [facility] Creatinine Clearance (Chem N/A [facility] Parathyrin.intact [Mass/volu me] in Serum or PlasmaOrdered By: Halle Mac on 08-10-2023 Parathyrin.intact [Mass/Vol] 38.7 pg/mL 12-88 [facility] Phosphate [Mass/volume] in S brunilda or PlasmaOrdered By: Halle Mac on 08-10-2023 Phosphate [Mass/Vol] 3.7 mg/dL 2.5-4.5 [facility] Platelet mean volume Auto (B ld) [Entitic vol]Ordered By: Halle Mac on 08-10-2023 Platelet mean volume (Bld) [Entitic vol] 9.8 fL 6.3-10.7 [facility] Platelets Auto (Bld) [#/Vol] Ordered By: Halle Mac on 08-10-2023 Platelets (Bld) [#/Vol] 217 10*3/uL 150-450 [facility] Potassium [Moles/volume] in Serum or PlasmaOrdered By: Halle Mac on 08-10-2023 Potassium [Moles/Vol] 4.5 mmol/L 3.5-5.1 [facility] Protein Auto test strip (U) [Mass/Vol]Ordered By: Halle Mac on 08-10-2023 Protein (U) [Mass/Vol] Negative Negative [facility] Protein [Mass/volume] in Uri neOrdered By: Halle Mac on 08-10-2023 Protein (U) [Mass/Vol] mg/dL 0-9 [facility] RBC Auto (Bld) [#/Vol]Ordere d By: Halle Mac on 08-10-2023 RBC (Bld) [#/Vol] 3.89 10*6/uL 3.60-5.00 [facility] Serum or plasma anion gap de terminationOrdered By: Halle Mac on 08-10-2023 Anion gap [Moles/Vol] 11.7 mmol/L 6.0-15.0 [facility] Sodium [Moles/volume] in Ser um or PlasmaOrdered By: Halle Mac on 08-10-2023 Sodium [Moles/Vol] 142 mmol/L 136-145 [facility] Specific gravity Auto test s trip (U) [Rel density]Ordered By: Halle Mac on 08-10-2023 Specific gravity (U) [Rel density] 1.015 1.001-1.030 [facility] Squamous epithelial cells de tection in urine sediment by light microscopyOrdered By: Halle Mac 08-10-2023 Epithelial cells.squamous LM Ql (Urine sed) None seen [HPF] 0-2 [facility] Transferrin [Mass/volume] in Serum or PlasmaOrdered By: Halle Mac on 08-10-2023 Transferrin [Mass/Vol] 343 mg/dL 203-362 [facility] Urate [Mass/volume] in Serum or PlasmaOrdered By: Halle Mac on 08-10-2023 Urate [Mass/Vol] 8.6 mg/dL High 2.3-6.6 [facility] Urea nitrogen [Mass/volume] in Serum or PlasmaOrdered By: Halle Mac on 08-10-2023 Urea nitrogen [Mass/Vol] 32 mg/dL High 7-25 [facility] Urine bacteria detection by automated methodOrdered By: Halle Mac on 08-10-2023 Bacteria Auto Ql (U) None seen None Seen [facility] Urine clarity by refractomet ry automatedOrdered By: Halle Mac on 08-10-2023 Clarity Refractometry automated (U) Clear Clear [facility] Urine glucose measurement by automated test strip (mass/volume)Ordered By: Halle Mac on 08-10-2023 Glucose Auto test strip (U) [Mass/Vol] Normal mg/dL Normal [facility] Urine hemoglobin detection b y automated test stripOrdered By: Halle Mac on 08-10-2023 Hemoglobin Auto test strip Ql (U) Negative Negative [facility] Urine leukocyte esterase det ection by automated test stripOrdered By: Halle Mac on 08-10-2023 Leukocyte esterase Auto test strip Ql (U) 2+ High Negative [facility] Urine protein/creatinine rat ioOrdered By: Halle Mac on 08-10-2023 Protein/Creatinine (U) [Ratio] TNP [facility] Comment on above: Test not performed Urobilinogen Auto test strip (U) [Mass/Vol]Ordered By: Halle Mac on 08-10-2023 Urobilinogen (U) [Mass/Vol] Normal mg/dL Normal [facility] Vitamin B12 ser/plasOrdered By: Halle Mac on 08-10-2023 Cobalamin (Vitamin B12) [Mass/Vol] 164 pg/mL Low 180-914 [facility] Vitamin D+Metabolites [Mass/ volume] in Serum or PlasmaOrdered By: Halle Mac on 08-10-2023 Vitamin D+Metabolites [Mass/Vol] 22.4 ng/mL Low 30-100 [facility] Comment on above: VITAMIN D STATUS 25( [place])VITAMIN D RANGE (ng/mL) Deficient <20 Insufficient 20 to <30Sufficient 30 to 100Reference: Karen MF,Nicole NC, Ed LI, et al. Evaluation,treatment, and prevention of vitamin D deficiency; an Endocrine Society clinical practice guideline. JCEM. 2010; 96(7):1911-30. pH Auto test strip (U)Ordere d By: Halle Mac on 08-10-2023 pH (U) 5.5 [pH] 5.0-9.0 [facility] Valproate [Mass/volume] in S brunilda or PlasmaOrdered By: Fauzia Huffman on 06-19-2023 Valproate [Mass/Vol] 14.5 ug/mL 50.0-100.0 [facility] Comment on above: Last dose: - Alanine aminotransferase [En zymatic activity/volume] in Serum or PlasmaOrdered By: Halle Mac on 05-17-2023 ALT [Catalytic activity/Vol] 16 U/L 7-52 [facility] Albumin [Mass/volume] in Ser um or Plasma by Bromocresol green (BCG) dye binding methoOrdered By: Halle Mac on 05-17-2023 Albumin BCG dye [Mass/Vol] 4.3 g/dL 3.5-5.7 [facility] Alkaline phosphatase [Enzyma tic activity/volume] in Serum or PlasmaOrdered By: Halle Mac on 05-17-2023 ALP [Catalytic activity/Vol] 61 U/L 34-104 [facility] Aspartate aminotransferase [ Enzymatic activity/volume] in Serum or PlasmaOrdered By: Halle Mac on 05-17-2023 AST [Catalytic activity/Vol] 23 U/L 13-39 [facility] Automated erythrocytes count in urine sediment (number/area)Ordered By: Halle Mac on 05-17-2023 RBC Auto (Urine sed) [#/Area] 3-4 [HPF] 0-4 [facility] Automated leukocytes count i n urine sediment (number/area)Ordered By: Halle Mac on 05-17-2023 WBC Auto (Urine sed) [#/Area] 10-19 [HPF] 0-4 [facility] Bilirubin Test strip Ql (U)O rdered By: Halle Mac on 05-17-2023 Bilirubin Ql (U) 2+ Negative [facility] Bilirubin.total [Mass/volume ] in Serum or PlasmaOrdered By: Halle Mac on 05-17-2023 Bilirubin [Mass/Vol] 0.5 mg/dL 0.3-1.0 [facility] Calcium [Mass/volume] in Ser um or PlasmaOrdered By: Halle Mac on 05-17-2023 Calcium [Mass/Vol] 9.3 mg/dL 8.6-10.3 [facility] Carbon dioxide, total [Moles /volume] in Serum or PlasmaOrdered By: Halle Mac on 05-17-2023 CO2 [Moles/Vol] 28.0 mmol/L 21.0-31.0 [facility] Casts typing in urine sedime nt by light microscopyOrdered By: Halle Mac on 05-17-2023 Casts LM Nom (Urine sed) None seen [LPF] None Seen [facility] Chloride [Moles/volume] in S brunilda or PlasmaOrdered By: Halle Mac on 05-17-2023 Chloride [Moles/Vol] 107 mmol/L 98-107 [facility] Color Auto (U)Ordered By: Donald Mac on 05-17-2023 Color (U) Dark yellow Yellow [facility] Creatinine [Mass/volume] in Serum or PlasmaOrdered By: Halle Mac on 05-17-2023 Creatinine [Mass/Vol] 1.52 mg/dL 0.60-1.20 [facility] Creatinine [Mass/volume] in UrineOrdered By: Halle Mac on 05-17-2023 Creatinine (U) [Mass/Vol] mg/dL 11.0-20.0 [facility] Erythrocyte distribution wid th Auto (RBC) [Ratio]Ordered By: Halle Mac on 05-17-2023 Erythrocyte distribution width (RBC) [Ratio] 13.4 % 11.9-15.3 [facility] Ferritin [Mass/volume] in Se rum or PlasmaOrdered By: Halle Mac on 05-17-2023 Ferritin [Mass/Vol] 51.8 ng/mL 11.0-306.8 [facility] Fine granular cast count in urine sediment by microscopy (number/low power field )Ordered By: Halle Mac on 05-17-2023 Fine Granular Casts LM.LPF (Urine sed) [#/Area] 5-9 [LPF] 0-1 [facility] Globulin Calc (S) [Mass/Vol] Ordered By: Halle Mac on 05-17-2023 Globulin (S) [Mass/Vol] 2.3 g/dL [facility] Glucose [Mass/volume] in Ser um or PlasmaOrdered By: Halle Mac on 05-17-2023 Glucose [Mass/Vol] 123 mg/dL 70-100 [facility] Comment on above: ADA recommended refe rence rangeRandom Glucose Reference Range is dependent on time and content of last meal. Glucose of more than 200 mg/dL in a nonstressed, ambulatory subject supports the diagnosis of Diabetes Mellitus. Hematocrit Auto (Bld) [Volum e fraction]Ordered By: Halle Mac on 05-17-2023 Hematocrit (Bld) [Volume fraction] 36.1 % 34.0-46.4 [facility] Hemoglobin [Mass/volume] in BloodOrdered By: Halle Mac 05-17-2023 Hemoglobin (Bld) [Mass/Vol] 11.8 g/dL 11.8-15.4 [facility] Iron [Mass/volume] in Serum or PlasmaOrdered By: Halle Mac on 05-17-2023 Iron [Mass/Vol] 57 ug/dL 50-212 [facility] Iron binding capacity [Mass/ volume] in Serum or PlasmaOrdered By: Halle Mac on 05-17-2023 Iron binding capacity [Mass/Vol] 538 ug/dL 255-450 [facility] Iron saturation [Mass Fracti on] in Serum or PlasmaOrdered By: Halle Mac on 05-17-2023 Iron saturation [Mass fraction] 10.6 % 20-50 [facility] Ketones Auto test strip (U) [Mass/Vol]Ordered By: Halle Mac on 05-17-2023 Ketones (U) [Mass/Vol] 1+ Negative [facility] Laboratory - UrinalysisOrder ed By: Halle Mac on 05-17-2023 Hyaline casts LM Ql (Urine sed) None seen [LPF] 0-8 [facility] Leukocytes [#/volume] correc joaquin for nucleated erythrocytes in Blood by Automated counOrdered By: Halle Mac on 05-17-2023 WBC corrected for nucl RBC Auto (Bld) [#/Vol] 5.5 10*3/uL 3.8-11.6 [facility] MCH Auto (RBC) [Entitic mass ]Ordered By: Halle Mac on 05-17-2023 MCH (RBC) [Entitic mass] 29.4 pg 24.7-34.3 [facility] MCHC Auto (RBC) [Mass/Vol]Or dered By: Halle Mac on 05-17-2023 MCHC (RBC) [Mass/Vol] 32.8 g/dL 32.0-35.0 [facility] MCV Auto (RBC) [Entitic vol] Ordered By: Halle Mac on 05-17-2023 MCV (RBC) [Entitic vol] 89.4 fL 80-100 [facility] Magnesium [Mass/volume] in S brunilda or PlasmaOrdered By: Halle Mac on 05-17-2023 Magnesium [Mass/Vol] 2.0 mg/dL 1.9-2.7 [facility] Mucus LM Ql (Urine sed)Order ed By: Halle Mac on 05-17-2023 Mucus Ql (Urine sed) 3+ [LPF] [facility] Nitrite Test strip Ql (U)Ord ered By: Halle Mac on 05-17-2023 Nitrite Ql (U) Negative Negative [facility] No Panel InformationOrdered By: Halle Mac on 05-17-2023 Estimated GFR (CKD-EPI) 41.013 mL/Min [facility] Creatinine Clearance (Chem N/A [facility] Parathyrin.intact [Mass/volu me] in Serum or PlasmaOrdered By: Halle Mac on 05-17-2023 Parathyrin.intact [Mass/Vol] 36.3 pg/mL 12-88 [facility] Phosphate [Mass/volume] in S brunilda or PlasmaOrdered By: Halle Mac on 05-17-2023 Phosphate [Mass/Vol] 4.4 mg/dL 2.5-4.5 [facility] Platelet mean volume Auto (B ld) [Entitic vol]Ordered By: Halle Mac on 05-17-2023 Platelet mean volume (Bld) [Entitic vol] 9.5 fL 6.3-10.7 [facility] Platelets Auto (Bld) [#/Vol] Ordered By: Halle Mac on 05-17-2023 Platelets (Bld) [#/Vol] 233 10*3/uL 150-450 [facility] Potassium [Moles/volume] in Serum or PlasmaOrdered By: Halle Mac on 05-17-2023 Potassium [Moles/Vol] 3.8 mmol/L 3.5-5.1 [facility] Protein Auto test strip (U) [Mass/Vol]Ordered By: Halle Mac on 05-17-2023 Protein (U) [Mass/Vol] 30 mg/dL Negative [facility] Protein [Mass/volume] in Ser um or PlasmaOrdered By: Halle Mac on 05-17-2023 Protein [Mass/Vol] 6.6 g/dL 6.4-8.9 [facility] Protein [Mass/volume] in Uri neOrdered By: Halle Mac on 05-17-2023 Protein (U) [Mass/Vol] 35 mg/dL 0-9 [facility] RBC Auto (Bld) [#/Vol]Ordere d By: Halle Mac on 05-17-2023 RBC (Bld) [#/Vol] 4.03 10*6/uL 3.60-5.00 [facility] Serum or plasma albumin/glob ulin mass ratioOrdered By: Halle Mac on 05-17-2023 Albumin/Globulin [Mass ratio] 1.9 {ratio} [facility] Serum or plasma anion gap de terminationOrdered By: Halle Mac on 05-17-2023 Anion gap [Moles/Vol] 10.8 mmol/L 6.0-15.0 [facility] Sodium [Moles/volume] in Ser um or PlasmaOrdered By: Halle Mac on 05-17-2023 Sodium [Moles/Vol] 142 mmol/L 136-145 [facility] Specific gravity Auto test s trip (U) [Rel density]Ordered By: Halle Mac on 05-17-2023 Specific gravity (U) [Rel density] 1.025 1.001-1.030 [facility] Squamous epithelial cells de tection in urine sediment by light microscopyOrdered By: Halle Mac on 05-17-2023 Epithelial cells.squamous LM Ql (Urine sed) 3-4 [HPF] 0-2 [facility] Transferrin [Mass/volume] in Serum or PlasmaOrdered By: Halle Mac on 05-17-2023 Transferrin [Mass/Vol] 384 mg/dL 203-362 [facility] Urate [Mass/volume] in Serum or PlasmaOrdered By: Halle Mac on 05-17-2023 Urate [Mass/Vol] 7.3 mg/dL 2.3-6.6 [facility] Urea nitrogen [Mass/volume] in Serum or PlasmaOrdered By: Halle Mac on 05-17-2023 Urea nitrogen [Mass/Vol] 26 mg/dL 7-25 [facility] Urine bacteria detection by automated methodOrdered By: Halle Mac on 05-17-2023 Bacteria Auto Ql (U) None seen None Seen [facility] Urine clarity by refractomet ry automatedOrdered By: Halle Mac on 05-17-2023 Clarity Refractometry automated (U) Cloudy Clear [facility] Urine culture routineOrdered By: Halle Mac on 05-17-2023 Bacteria identified Cx Nom (U) 2 Days [facility] Urine glucose measurement by automated test strip (mass/volume)Ordered By: Halle Mac on 05-17-2023 Glucose Auto test strip (U) [Mass/Vol] Normal mg/dL Normal [facility] Urine hemoglobin detection b y automated test stripOrdered By: Halle Mac on 05-17-2023 Hemoglobin Auto test strip Ql (U) Negative Negative [facility] Urine leukocyte esterase det ection by automated test stripOrdered By: Halle Mac on 05-17-2023 Leukocyte esterase Auto test strip Ql (U) 1+ Negative [facility] Urine protein/creatinine rat ioOrdered By: Halle Mac on 05-17-2023 Protein/Creatinine (U) [Ratio] TNP [facility] Comment on above: Test not performed Urobilinogen Auto test strip (U) [Mass/Vol]Ordered By: Halle Mac on 05-17-2023 Urobilinogen (U) [Mass/Vol] Normal mg/dL Normal [facility] Valproate [Mass/volume] in S brunilda or PlasmaOrdered By: Fauzia Huffman on 05-17-2023 Valproate [Mass/Vol] 24.0 ug/mL 50.0-100.0 [facility] Comment on above: Last dose: - Vitamin D+Metabolites [Mass/ volume] in Serum or PlasmaOrdered By: Halle Mac on 05-17-2023 Vitamin D+Metabolites [Mass/Vol] 24.3 ng/mL 30-100 [facility] Comment on above: VITAMIN D [...] (Urine sed) None seen [HPF] None Seen [facility] pH Auto test strip (U)Ordere d By: Halle Mac on 05-17-2023 pH (U) 5.0 [pH] 5.0-9.0 [facility] Provider Orderson 05-09-2023 Provider Orders [id number] [facility] BNPon 09-07-2022 Natriuretic peptide B (Bld) [Mass/Vol] 391.0 pg/mL Normal <=900.0 [facility] Comment on above: Performed By: #### L IPID, BMP #### [facility] [address] [place] [address] Dr. Jga Wladrop CBC AUTO DIFFon 09-07-2022 BASO # 0.1 103/ul Normal 0.0-0.1 [facility] Comment on above: Performed By: #### L IPID, BMP #### [facility] [address] [place] [address] Dr. Jag Waldrop Basophils/100 WBC (Bld) 1.4 % Normal 0.2-2.0 [facility] Comment on above: Performed By: #### L IPID, BMP #### [facility] [address] [place] [address] Dr. Jag Waldrop EO # 0.1 103/ul Normal 0.0-0.7 [facility] [place] Comment on above: Performed By: #### L IPID, BMP #### [facility] [address] [place] [address] Dr. Jag aWldrop Eosinophils/100 WBC (Bld) 1.6 % Normal 0.9-7.0 [facility] [place] Comment on above: Performed By: #### L IPID, BMP #### [facility] [address] [place] [address] Dr. Jag Waldrop Erythrocyte distribution width (RBC) [Ratio] 15.0 % Normal 11.0-15.0 [facility] Comment on above: Performed By: #### L IPID, BMP #### [facility] [address] [place] [address] Dr. Jag Waldrop Hematocrit (Bld) [Volume fraction] 37.2 % Normal 36.0-48.0 [facility] Comment on above: Performed By: #### L IPID, BMP #### [facility] [address] [place] [address] Dr. Jag Waldrop Hemoglobin (Bld) [Mass/Vol] 11.6 g/dL Critically low 12.0-16.0 [facility] Comment on above: Performed By: #### L IPID, BMP #### [facility] [address] [address] [address] Jag Waldrop IG # 0.01 10e3/ul Normal 0.00-0.03 [facility] Comment on above: Performed By: #### L IPID, BMP #### [facility] [address] [address] [address] Jag Waldrop IG % 0.2 % Normal 0.0-0.5 [facility] Comment on above: Performed By: #### L IPID, BMP #### [facility] [address] [place] [address] Dr. Jag Waldrop LYMPH # 1.9 103/ul Normal 1.2-3.8 [facility] Comment on above: Performed By: #### L IPID, BMP #### [facility] [address] [place] [address] Dr. Jag Waldrop Lymphocytes/100 WBC (Bld) 39.1 % Normal 20.5-60.0 [facility] Comment on above: Performed By: #### L IPID, BMP #### [facility] [address] [place] [address] Dr. Jag Waldrop MANUAL DIFF REQ NO Normal [facility] Comment on above: Performed By: #### L IPID, BMP #### [facility] [address] [place] [address] Dr. Jag Waldrop MCH (RBC) [Entitic mass] 27.5 pg Normal 26.7-34.0 [facility] Comment on above: Performed By: #### L IPID, BMP #### [facility] [address] [place] [address] Dr. Jag Waldrop MCHC (RBC) [Mass/Vol] 31.2 g/dL Normal 29.9-35.2 [facility] Comment on above: Performed By: #### L IPID, BMP #### [facility] [address] [place] [address] Dr. Jag Waldrop MCV (RBC) [Entitic vol] 88.2 fL Normal 81.0-99.0 [facility] Comment on above: Performed By: #### L IPID, BMP #### [facility] [address] [place] [address] Dr. Jag Waldrop MONO # 0.3 103/ul Normal 0.3-0.8 [facility] Comment on above: Performed By: #### L IPID, BMP #### [facility] [address] [place] [address] Dr. Jag Waldrop Monocytes/100 WBC (Bld) 6.5 % Normal 1.7-12.0 [facility] [place] Comment on above: Performed By: #### L IPID, BMP #### [facility] [address] [place] [address] Dr. Jag Waldrop NEUT # 2.5 103/ul Normal 1.4-6.5 [facility] Comment on above: Performed By: #### L IPID, BMP #### [facility] [address] [place] [address] Dr. Jag Waldrop Neutrophils/100 WBC (Bld) 51.2 % Normal 43.0-75.0 [facility] Comment on above: Performed By: #### L IPID, BMP #### [facility] [address] [place] [address] Dr. Jag Waldrop Platelet mean volume (Bld) [Entitic vol] 10.5 fL Normal 9.5-13.5 [facility] Comment on above: Performed By: #### L IPID, BMP #### [facility] [address] [place] [address] Dr. Jag Waldrop PLT 272 103/ul Normal 150-450 [facility] [place] Comment on above: Performed By: #### L IPID, BMP #### [facility] [address] [place] [address] Dr. Jag Waldrop RBC 4.22 106/ul Normal 4.20-5.40 [facility] Comment on above: Performed By: #### L IPID, BMP #### [facility] [address] [place] [address] Dr. Jag Waldrop WBC 4.9 103/ul Normal 4.0-11.0 [facility] Comment on above: Performed By: #### L IPID, BMP #### [facility] [address] [place] [address] Dr. Jag Waldrop ER URINE PROFILEon 3 Bilirubin Ql (U) Negative Normal NEGATIVE [facility] Comment on above: Performed By: #### E RUR #### [facility] [address] [place] [address] Dr. Jag Waldrop Clarity (U) CLEAR Normal CLEAR [facility] Comment on above: Performed By: #### E RUR #### [facility] [address] [place] [address] Dr. Jag Waldrop Color (U) LT. YELLOW Normal YELLOW [facility] Comment on above: Performed By: #### E RUR #### [facility] [address] [place] [address] Dr. Jag Waldrop ERUAHTabitha A micrscopic examina tion will be performed if indicated. Normal [facility] Comment on above: Performed By: #### E RUR #### [facility] [address] [place] [address] Dr. Jag Waldrop Glucose Ql (U) Negative Normal NEGATIVE [facility] Comment on above: Performed By: #### E RUR #### [facility] [address] [place] [address] Dr. aJg Waldrop Hemoglobin Ql (U) Negative Normal NEGATIVE [facility] Comment on above: Performed By: #### E RUR #### [facility] [address] [place] [address] Dr. Jag Waldrop Ketones Ql (U) Negative Normal NEGATIVE [facility] Comment on above: Performed By: #### E RUR #### [facility] [address] [place] [address] Dr. Jag Waldrop LEUKOCYTES Negative Normal NEGATIVE [facility] Comment on above: Performed By: #### E RUR #### [facility] [address] [place] [address] Dr. Jag Waldrop Nitrite Ql (U) Negative Normal NEGATIVE [facility] Comment on above: Performed By: #### E RUR #### [facility] [address] [place] [address] Dr. Jag Waldrop pH (U) 7.0 [pH] Normal 5-9 [facility] Comment on above: Performed By: #### E RUR #### [facility] [address] [place] [address] Dr. Jag Waldrop SPEC GRAVITY 1.010 Normal 1.005-<=1.[address] [place] [address] Comment on above: Performed By: #### E RUR #### [facility] [address] [place] [address] Dr. Jag Waldrop UA PROTEIN Negative Normal NEGATIVE/ TRACE [facility] Comment on above: Performed By: #### E RUR #### [facility] [address] [place] [address] Dr. Jag Waldrop UR MICRO IND NOT INDICATED Normal [facility] Comment on above: Performed By: #### E RUR #### [facility] [address] [place] [address] Dr. Jag Waldrop Urobilinogen Qn (U) 0.2 {Chris'U}/dL Normal 0.2 - 1. 0 [facility] Comment on above: Performed By: #### E RUR #### [facility] [address] [place] [address] Dr. Jag Waldrop PROF 14(COMP METB)on 023 Albumin [Mass/Vol] 3.9 g/dL Normal 3.4-5.0 [facility] Comment on above: Performed By: #### L IPID, BMP #### [facility] [address] [place] [address] Dr. Jag Waldrop Albumin/Globulin [Mass ratio] 1.2 {ratio} Normal [facility] Comment on above: Performed By: #### L IPID, BMP #### [facility] [address] [place] [address] Dr. Jag Waldrop ALP [Catalytic activity/Vol] 95 U/L Normal 46-116 [facility] Comment on above: Performed By: #### L IPID, BMP #### [facility] [address] [address] [address] Jag Waldrop ALT [Catalytic activity/Vol] 31 U/L Normal 14-59 [facility] Comment on above: Performed By: #### L IPID, BMP #### [facility] [place] [address] [address] [address] Jag Waldrop Anion gap [Moles/Vol] 12.7 mmol/L Normal [facility] Comment on above: Performed By: #### L IPID, BMP #### [facility] [address] [address] [address] Jag Waldrop AST [Catalytic activity/Vol] 34 U/L Normal 15-37 [facility] Comment on above: Performed By: #### L IPID, BMP #### [facility] [address] [place] [address] Dr. Jag Waldrop Bilirubin [Mass/Vol] 0.4 mg/dL Normal 0.2-1.0 [facility] Comment on above: Performed By: #### L IPID, BMP #### [facility] [address] [address] [address] Jag Waldrop Calcium [Mass/Vol] 9.1 mg/dL Normal 8.5-10.1 [facility] Comment on above: Performed By: #### L IPID, BMP #### [facility] [address] [address] [address] Jag Waldrop Chloride [Moles/Vol] 107 mmol/L Normal 98-107 [facility] [place] Comment on above: Performed By: #### L IPID, BMP #### [facility] [address] [address] [address] Jag Waldrop CO2 [Moles/Vol] 28.1 mmol/L Normal 21.0-32.0 [facility] Comment on above: Performed By: #### L IPID, BMP #### [facility] [address] [address] [address] Jag Waldrop Creatinine [Mass/Vol] 1.18 mg/dL Critically high 0.55-1.02 [facility] Comment on above: Performed By: #### L IPID, BMP #### [facility] [address] [address] [address] Jag Waldrop EGFR-AF [place] 59 mL/min/1.73m2 Critically low >=60 [facility] Comment on above: Performed By: #### L IPID, BMP #### [facility] [address] [place] [address] Dr. Jag Waldrop EGFR-NON AF [place] 48 mL/min/1.73m2 Critically low >=60 [facility] Comment on above: Performed By: #### L IPID, BMP #### [facility] [address] [place] [address] Dr. Jag Waldrop Globulin (S) [Mass/Vol] 3.3 g/dL Normal [facility] Comment on above: Performed By: #### L IPID, BMP #### [facility] [address] [place] [address] Dr. Jag Waldrop Glucose [Mass/Vol] 111 mg/dL Critically high 74-106 [facility] Comment on above: Performed By: #### L IPID, BMP #### [facility] [address] [place] [address] Dr. Jag Waldrop Potassium [Moles/Vol] 3.8 mmol/L Normal 3.5-5.1 [facility] Comment on above: Performed By: #### L IPID, BMP #### [facility] [address] [place] [address] Dr. Jag Waldrop Protein [Mass/Vol] 7.2 g/dL Normal 6.4-8.2 [facility] [place] Comment on above: Performed By: #### L IPID, BMP #### [facility] [address] [place] [address] Dr. Jag Waldrop Sodium [Moles/Vol] 144 mmol/L Normal 136-145 [facility] Comment on above: Performed By: #### L IPID, BMP #### [facility] [address] [place] [address] Dr. Jag Waldrop Urea nitrogen [Mass/Vol] 19.0 mg/dL Critically high 7.0-18.0 [facility] Comment on above: Performed By: #### L IPID, BMP #### [facility] [address] [place] [address] Dr. Jag Waldrop Urea nitrogen/Creatinine [Mass ratio] 16.1 mg/mg Normal [facility] Comment on above: Performed By: #### L IPID, BMP #### [facility] [address] [place] [address] Dr. Jag Waldrop PROTIMEon 09-07-2022 INR Coag (PPP) [Relative time] {INR} Normal [facility] Comment on above: Performed By: #### P T #### [facility] [address] [place] [address] Dr. Jag Waldrop INR GUIDELINES SEE BELOW Normal [facility] Comment on above: Result Comment: MARTIN RED INR: 2.0 - 3.0 CONDITIONS NOT LISTED BELOW 2.5 - 3.5 FOR PROSTHETIC HEART VALVE REPLACEMENT 2.5 - 3.5 RECURRENT THROMBOSIS Performed By: #### P T #### [facility] [address] [place] [address] Dr. Jag Waldrop PT Coag (PPP) [Time] 9.7 s Normal 9.0-11.6 [facility] Comment on above: Performed By: #### P T #### [facility] [address] [place] [address] Dr. Jag Waldrop TROPONIN, HIGH SENSITIVITYon 09-07-2022 HSTROP 17.8 pg/mL Normal 4.0-51.3 [facility] Comment on above: Result Comment: CUT- OFF POINTS HAVE BEEN ESTABLISHED BASED ON THE FOURTH UNIVERSAL DEFINITIONS OF MYOCARDIAL INFARCTION. THE UPPER REFERENCE LIMIT (URL) OF TROPONIN, DEFINED THE 99TH PERCENTILE OF cTnI DISTRIBUTION IN A REFERENCE POPULATION, HAS BEEN CONFIRMED THE DECISION THRESHOLD FOR CA DIAGNOSIS. Performed By: #### L IPID, BMP #### [facility] [address] [place] [address] Dr. Jag Waldrop XR CHEST 2 Von [...] WAN JENKINS Date: 2022-09-07 16:47 Normal [facility] [place] GLYCOHEMOGLOBIN A1Con 2022 ADA RECOMMENDATION SEE BELOW Normal [facility] Comment on above: Result Comment: ADA RECOMMENDED LIMIT 4.0 - 6.0 ADA THERAPEUTIC TARGET < 7.0 ACTION SUGGESTED > 7.0 Performed By: #### L IPID, BMP #### [facility] [address] [place] [address] Dr. Jag Waldrop Glucose [Mass/Vol] 120 mg/dL Normal [facility] Comment on above: Performed By: #### L IPID, BMP #### [facility] [address] [place] [address] Dr. Jag Waldrop HbA1c (Bld) [Mass fraction] 5.8 % Normal 4.5-6.2 [facility] Comment on above: Performed By: #### L IPID, BMP #### [facility] [address] [address] [address] Jag Waldrop PROF CHEM 8 (BAS METB)on Anion gap [Moles/Vol] 13.2 mmol/L Normal [facility] Comment on above: Performed By: #### B MP #### [facility] [address] [place] [address] Dr. Jag Waldrop Calcium [Mass/Vol] 9.0 mg/dL Normal 8.5-10.1 [facility] Comment on above: Performed By: #### B MP #### [facility] [address] [place] [address] Dr. Jag Waldrop Chloride [Moles/Vol] 107 mmol/L Normal 98-107 [facility] Comment on above: Performed By: #### B MP #### [facility] [address] [place] [address] Dr. Jag Waldrop CO2 [Moles/Vol] 26.3 mmol/L Normal 21.0-32.0 [facility] Comment on above: Performed By: #### B MP #### [facility] [address] [address] [address] Jag Waldrop Creatinine [Mass/Vol] 1.03 mg/dL Critically high 0.55-1.02 [facility] Comment on above: Performed By: #### B MP #### [facility] [address] [address] [address] Jag Waldrop EGFR-AF [place] >60 Normal >=60 [facility] Comment on above: Performed By: #### B MP #### [facility] [address] [address] [address] Jag Waldrop EGFR-NON AF [place] 56 mL/min/1.73m2 Critically low >=60 [facility] Comment on above: Performed By: #### B MP #### [facility] [address] [address] [address] Jag Waldrop Glucose [Mass/Vol] 149 mg/dL Critically high 74-106 [facility] Comment on above: Performed By: #### B MP #### [facility] [address] [address] [address] Jag Waldrop Potassium [Moles/Vol] 4.5 mmol/L Normal 3.5-5.1 [facility] Comment on above: Performed By: #### B MP #### [facility] [address] [address] [address] Jag Waldrop Sodium [Moles/Vol] 142 mmol/L Normal 136-145 [facility] [facility] [place] Comment on above: Performed By: #### B MP #### [facility] [place] [facility] [address] [address] [address] Jag Waldrop Urea nitrogen [Mass/Vol] 22.0 mg/dL Critically high 7.0-18.0 [facility] Comment on above: Performed By: #### B MP #### [facility] [place] [facility] [address] [address] [address] Jag Waldrop Urea nitrogen/Creatinine [Mass ratio] 21.4 mg/mg Normal [facility] Comment on above: Performed By: #### B #### [facility] [place] [facility] [address] [address] [address] ABD/PELVIS WO CONon [...] NATHAN COLE Date: 2022-05-29 22:50 Normal [facility] [place] US KVNG DOP LEG RTon 05-30-19 23 [...] LUZ COELLO Date: 2022-05-29 22:42 Normal [facility] [place] CBC AUTO DIFFon 05-29-2022 BASO # 0.1 103/ul Normal 0.0-0.1 [facility] Comment on above: Performed By: #### L IPID, BMP #### [facility] [place] Laboratory [address] [place] [address] Dr. Jag Waldrop Basophils/100 WBC (Bld) 0.7 % Normal 0.2-2.0 [facility] Comment on above: Performed By: #### L IPID, BMP #### [facility] [place] [facility] [address] [place] [address] Dr. Jag Waldrop EO # 0.1 103/ul Normal 0.0-0.7 [facility] Comment on above: Performed By: #### L IPID, BMP #### [facility] [place] [facility] [address] [place] [address] Dr. Jag Waldrop Eosinophils/100 WBC (Bld) 1.5 % Normal 0.9-7.0 [facility] Comment on above: Performed By: #### L IPID, BMP #### [facility] [place] [facility] [address] [place] [address] Dr. Jag Waldrop Erythrocyte distribution width (RBC) [Ratio] 13.9 % Normal 11.0-15.0 [facility] Comment on above: Performed By: #### L IPID, BMP #### [facility] [place] [facility] [address] [place] [address] Dr. Jag Waldrop Hematocrit (Bld) [Volume fraction] 34.2 % Critically low 36.0-48.0 [facility] Comment on above: Performed By: #### L IPID, BMP #### [facility] [place] [facility] [address] [place] [address] Dr. Jga Waldrop Hemoglobin (Bld) [Mass/Vol] 10.9 g/dL Critically low 12.0-16.0 [facility] Comment on above: Performed By: #### L IPID, BMP #### [facility] [place] [facility] [address] [place] [address] Dr. Jag Waldrop IG # 0.02 10e3/ul Normal 0.00-0.03 [facility] Comment on above: Performed By: #### L IPID, BMP #### [facility] [place] [facility] [address] [place] [address] Dr. Jag Waldrop IG % 0.2 % Normal 0.0-0.5 [facility] Comment on above: Performed By: #### L IPID, BMP #### [facility] [place] [facility] [address] [place] [address] Dr. Jag Waldrop LYMPH # 2.5 103/ul Normal 1.2-3.8 [facility] Comment on above: Performed By: #### L IPID, BMP #### [facility] [place] [facility] [address] [place] [address] Dr. Jag Waldrop Lymphocytes/100 WBC (Bld) 30.4 % Normal 20.5-60.0 [facility] Comment on above: Performed By: #### L IPID, BMP #### [facility] [place] [facility] [address] [place] [address] Dr. Jag Waldrop MANUAL DIFF REQ NO Normal [facility] Comment on above: Performed By: #### L IPID, BMP #### [facility] [place] [facility] [address] [place] [address] Dr. Jag Waldrop MCH (RBC) [Entitic mass] 27.1 pg Normal 26.7-34.0 [facility] [place] Comment on above: Performed By: #### L IPID, BMP #### [facility] [place] [facility] [address] [place] [address] Dr. Jag Waldrop MCHC (RBC) [Mass/Vol] 31.9 g/dL Normal 29.9-35.2 [facility] [place] Comment on above: Performed By: #### L IPID, BMP #### [facility] [place] Laboratory [address] [place], [place] [id number] Dr. Jag Waldrop MCV (RBC) [Entitic vol] 85.1 fL Normal 81.0-99.0 [facility] [place] Comment on above: Performed By: #### L IPID, BMP #### [facility] [place] [facility] [address] [place] [address] Dr. Jag Waldrop MONO # 0.5 103/ul Normal 0.3-0.8 [facility] [place] Comment on above: Performed By: #### L IPID, BMP #### [facility] [place] [facility] [address] [place] [address] Dr. Jag Waldrop Monocytes/100 WBC (Bld) 6.7 % Normal 1.7-12.0 [facility] [place] Comment on above: Performed By: #### L IPID, BMP #### [facility] [place] [facility] [address] [place] [address] Dr. Jag Waldrop NEUT # 4.9 103/ul Normal 1.4-6.5 [facility] [place] Comment on above: Performed By: #### L IPID, BMP #### [facility] [place] [facility] [address] [place] [address] Dr. Jag Waldrop Neutrophils/100 WBC (Bld) 60.5 % Normal 43.0-75.0 [facility] [place] Comment on above: Performed By: #### L IPID, BMP #### [facility] [place] [facility] [address] [place] [address] Dr. Jag Waldrop Platelet mean volume (Bld) [Entitic vol] 10.3 fL Normal 9.5-13.5 [facility] [place] Comment on above: Performed By: #### L IPID, BMP #### [facility] [place] [facility] [address] [place] [address] Dr. Jag Waldrop PLT 256 103/ul Normal 150-450 [facility] [place] Comment on above: Performed By: #### L IPID, BMP #### [facility] [place] [facility] [address] [place] [address] Dr. Jag Waldrop RBC 4.02 106/ul Critically low 4.20-5.40 [facility] [place] Comment on above: Performed By: #### L IPID, BMP #### [facility] [place] [facility] [address] [place] [address] Dr. Jag Waldrop WBC 8.1 103/ul Normal 4.0-11.0 [facility] [place] Comment on above: Performed By: #### L IPID, BMP #### [facility] [place] [facility] [address] [place] [address] Dr. Jag BRADLEY URINE PROFILEon 3 Bilirubin Ql (U) Negative Normal NEGATIVE [facility] Comment on above: Performed By: #### L IPID, BMP #### [facility] [place] [facility] [address] [place] [address] Dr. Jag Waldrop Clarity (U) CLEAR Normal CLEAR [facility] [place] Comment on above: Performed By: #### L IPID, BMP #### [facility] [place] [facility] [address] [place] [address] Dr. Jag Waldrop Color (U) YELLOW Normal YELLOW [facility] [place] Comment on above: Performed By: #### L IPID, BMP #### [facility] [place] [facility] [address] [place] [address] Dr. Jag Waldrop ERULIBERTYD A micrscopic examina tion will be performed if indicated. Normal [facility] [place] Comment on above: Performed By: #### L IPID, BMP #### [facility] [place] [facility] [address] [place] [address] Dr. Jag Waldrop Glucose Ql (U) Negative Normal NEGATIVE [facility] [place] Comment on above: Performed By: #### L IPID, BMP #### [facility] [address] [place] [address] Dr. Jag Waldrop Hemoglobin Ql (U) Negative Normal NEGATIVE [facility] Comment on above: Performed By: #### L IPID, BMP #### [facility] [place] [facility] [address] [place] [address] Dr. Jag Waldrop Ketones Ql (U) 15 mg/dl Abnormal NEGATIVE [facility] [place] Comment on above: Performed By: #### L IPID, BMP #### [facility] [place] [address] [place] [address] Dr. Jag Waldrop LEUKOCYTES TRACE Abnormal NEGATIVE [facility] Comment on above: Performed By: #### L IPID, BMP #### [facility] [place] [facility] [address] [place] [address] Dr. Jag Waldrop Nitrite Ql (U) Negative Normal NEGATIVE [facility] Comment on above: Performed By: #### L IPID, BMP #### [facility] [place] [facility] [address] [place] [address] Dr. Jag Waldrop pH (U) 5.5 [pH] Normal 5-9 [facility] Comment on above: Performed By: #### L IPID, BMP #### [facility] [facility] [address] [place] [address] Dr. Jag Waldrop SPEC GRAVITY 1.020 Normal 1.005-<=1.0 25 [facility] Comment on above: Performed By: #### L IPID, BMP #### [facility] [place] [facility] [address] [place] [address] Dr. Jag Waldrop UA PROTEIN Negative Normal NEGATIVE/ TRACE [facility] Comment on above: Performed By: #### L IPID, BMP #### [facility] [place] [facility] [address] [place] [address] Dr. Jag Waldrop UR MICRO IND INDICATED Normal [facility] Comment on above: Performed By: #### L IPID, BMP #### [facility] [place] [facility] [address] [place] [address] Dr. Jag Waldrop Urobilinogen Qn (U) 0.2 {Chris'U}/dL Normal 0.2 - 1. 0 [facility] Comment on above: Performed By: #### L IPID, BMP #### [facility] [address] [place] [address] Dr. Jag Waldrop PROF CHEM 8 (BAS METB)on Anion gap [Moles/Vol] 14.2 mmol/L Normal [facility] Comment on above: Performed By: #### B MP #### [facility] [place] [facility] [address] [place] [address] Dr. Jag Waldrop Calcium [Mass/Vol] 9.1 mg/dL Normal 8.5-10.1 [facility] Comment on above: Performed By: #### B MP #### [facility] [place] [facility] [address] [address] [address] Jag Waldrop Chloride [Moles/Vol] 106 mmol/L Normal 98-107 [facility] [place] Comment on above: Performed By: #### B MP #### [facility] [place] [facility] [address] [address] [address] Jag Waldrop CO2 [Moles/Vol] 23.5 mmol/L Normal 21.0-32.0 [facility] [place] Comment on above: Performed By: #### B MP #### [facility] [place] [facility] [address] [address] [address] Jag Waldrop Creatinine [Mass/Vol] 1.29 mg/dL Critically high 0.55-1.02 [facility] Comment on above: Performed By: #### B MP #### [facility] [place] [facility] [address] [address] [address] Jag Waldrop EGFR-AF [place] 53 mL/min/1.73m2 Critically low >=60 [facility] [place] Comment on above: Performed By: #### B MP #### [facility] [place] [facility] [address] [address] [address] Jag Waldrop EGFR-NON AF [place] 44 mL/min/1.73m2 Critically low >=60 [facility] [place] Comment on above: Performed By: #### B MP #### [facility] [place] [facility] [address] [address] [address] Jag Waldrop Glucose [Mass/Vol] 93 mg/dL Normal 74-106 [facility] [place] Comment on above: Performed By: #### B MP #### [facility] [place] [facility] [address] [address] [address] Jag Waldrop Potassium [Moles/Vol] 3.7 mmol/L Normal 3.5-5.1 [facility] [place] Comment on above: Performed By: #### B MP #### [facility] [place] [facility] [address] [address] [address] Jag Waldrop Sodium [Moles/Vol] 140 mmol/L Normal 136-145 [facility] [place] Comment on above: Performed By: #### B MP #### [facility] [place] [facility] [address] [address] [address] Jag Waldrop Urea nitrogen [Mass/Vol] 24.0 mg/dL Critically high 7.0-18.0 [facility] [place] Comment on above: Performed By: #### B MP #### [facility] [place] [facility] [address] [place] [address] Dr. Jag Waldrop Urea nitrogen/Creatinine [Mass ratio] 18.6 mg/mg Normal [facility] [place] Comment on above: Performed By: #### B MP #### [facility] [place] Laboratory [address] [place] [address] Dr. Jag Waldrop URINE MICROSCOPIC ONLYon BACTERIA TRACE Abnormal NONE SEEN [facility] Comment on above: Performed By: #### L IPID, BMP #### [facility] [place] [facility] [address] [place] [address] Dr. Jag Waldrop Bacteria identified Cx Nom (U) NOT INDICATED Normal [facility] [place] Comment on above: Performed By: #### L IPID, BMP #### [facility] [address] [place] [address] Dr. Jag Waldrop CAST NONE SEEN Normal NONE SEEN [facility] Comment on above: Performed By: #### L IPID, BMP #### [facility] [place] Laboratory [address] [place] [address] Dr. Jag Waldrop Crystals LM Nom (Urine sed) NONE SEEN Normal NONE SEEN [facility] [place] Comment on above: Performed By: #### L IPID, BMP #### [facility] [address] [place] [address] Dr. Jag Waldrop Epithelial cells LM Ql (Urine sed) RARE Normal NONE SEEN /RARE [facility] [place] Comment on above: Performed By: #### L IPID, BMP #### [facility] [place] [facility] [address] [place] [address] Dr. Jag Waldrop MUCOUS NONE SEEN Normal NONE SEEN [facility] [place] Comment on above: Performed By: #### L IPID, BMP #### [facility] [facility] [address] [place] [address] Dr. Jag Waldrop RBC 5-10 Abnormal 0-2 [facility] [place] Comment on above: Performed By: #### L IPID, BMP #### [facility] [place] [facility] [address], [place] [address] Dr[address] Jag Waldrop WBC 0-2 Abnormal NONE SEEN [facility] [place] Comment on above: Performed By: #### L IPIDGILMAR #### [facility] [place] Laboratory [address], [place] [address] Dr. Jag Waldrop MG MAMM SCREEN 3D ORESTES CADon 03-29-2022 MG MAMM SCREEN 3D ORESTES CAD Patient: SHERLY HUMPHREYS Exam Date: 03/29/2022 : 1970 Gender:F Ordering : AGUSTINA JANENE JONESANGIERufus [employer] Admission #: [id number] Family : Order #: [id number] CLICK HERE TO VIEW EXAM RADIOLOGY REPORT [...] head/neck cancer at age 73. LOCATION: [facility] [place] BREAST COMPOSITION: Scattered areas fibroglandular density. FINDINGS: [...] M.D. on 03/29/2022 at 15:31 Normal [facility] [place] MRI LSPINE WO W CONon 2021 MRI [...] by: KATHY LOBATO Date: 2022-03-23 11:26 Normal [facility] MRI TSPINE WO W CONon 2021 [...] KATHY LOBATO Date: 2022-03-23 12:50 Normal [facility] [place] PROF CHEM 8 (BAS METB)on Anion gap [Moles/Vol] 11.8 mmol/L Normal [facility] Comment on above: Performed By: #### P OCGLUC #### [facility] [place] Laboratory [address] [address] [address] Jag Waldrop Calcium [Mass/Vol] 9.0 mg/dL Normal 8.5-10.1 [facility] Comment on above: Performed By: #### P OCGLUC #### [facility] [place] [facility] [address] [address] [address] Jag Waldrop Chloride [Moles/Vol] 107 mmol/L Normal 98-107 [facility] Comment on above: Performed By: #### P OCGLUC #### [facility] [place] [facility] [address] [address] [address] Jag Waldrop CO2 [Moles/Vol] 30.2 mmol/L Normal 21.0-32.0 [facility] Comment on above: Performed By: #### P OCGLUC #### [facility] [place] [facility] [address] [address] [address] Jag Waldrop Creatinine [Mass/Vol] 1.32 mg/dL Critically high 0.55-1.02 [facility] Comment on above: Performed By: #### P OCGLUC #### [facility] [place] [facility] [address] [address] [address] Jag Waldrop EGFR-AF [place] 51 mL/min/1.73m2 Critically low >=60 [facility] Comment on above: Performed By: #### P OCGLUC #### [facility] [place] [facility] [address] [address] [address] Jag Waldrop EGFR-NON AF [place] 42 mL/min/1.73m2 Critically low >=60 [facility] Comment on above: Performed By: #### P OCGLUC #### [facility] [place] [facility] [address] [address] [address] Jag Waldrop Glucose [Mass/Vol] 117 mg/dL Critically high 74-106 [facility] Comment on above: Performed By: #### P OCGLUC #### [facility] [place] [facility] [address] [address] [address] Jag Waldrop Potassium [Moles/Vol] 4.0 mmol/L Normal 3.5-5.1 [facility] Comment on above: Performed By: #### P OCGLUC #### [facility] [place] [facility] [address] [place] [address] Dr. Jag Waldrop Sodium [Moles/Vol] 145 mmol/L Normal 136-145 [facility] Comment on above: Performed By: #### P OCGLUC #### [facility] [place] [facility] [address] [place] [address] Dr. Jag Waldrop Urea nitrogen [Mass/Vol] 23.0 mg/dL Critically high 7.0-18.0 [facility] Comment on above: Performed By: #### P OCGLUC #### [facility] [place] [facility] [address] [place] [address] Dr. Jag Waldrop Urea nitrogen/Creatinine [Mass ratio] 17.4 mg/mg Normal [facility] Comment on above: Performed By: #### P OCGLUC #### [facility] [place] [facility] [address] [place] [address] Dr. Jag Waldrop CBC AUTO DIFFon 02-19-2022 BASO # 0.1 103/ul Normal 0.0-0.1 [facility] Comment on above: Performed By: #### P OCGLUC #### [facility] [place] [facility] [address] [place] [address] Dr. Jag Waldrop Basophils/100 WBC (Bld) 1.0 % Normal 0.2-2.0 [facility] Comment on above: Performed By: #### P OCGLUC #### [facility] [place] [facility] [address] [place] [address] Dr. Jag Waldrop EO # 0.1 103/ul Normal 0.0-0.7 [facility] Comment on above: Performed By: #### P OCGLUC #### [facility] [place] [facility] [address] [place] [address] Dr. Jag Waldrop Eosinophils/100 WBC (Bld) 1.9 % Normal 0.9-7.0 [facility] Comment on above: Performed By: #### P OCGLUC #### [facility] [address] [place] [address] Dr. Jag Waldrop Erythrocyte distribution width (RBC) [Ratio] 13.2 % Normal 11.0-15.0 [facility] Comment on above: Performed By: #### P OCGLUC #### [facility] [place] [facility] [address] [place] [address] Dr. Jag Waldrop Hematocrit (Bld) [Volume fraction] 36.7 % Normal 36.0-48.0 [facility] Comment on above: Performed By: #### P OCGLUC #### [facility] [address] [place] [address] Dr. Jag Waldrop Hemoglobin (Bld) [Mass/Vol] 11.4 g/dL Critically low 12.0-16.0 [facility] Comment on above: Performed By: #### P OCGLUC #### [facility] [address] [place] [address] Dr. Jag Waldrop IG # 0.03 10e3/ul Normal 0.00-0.03 [facility] Comment on above: Performed By: #### P OCGLUC #### [facility] [place] [facility] [address] [place] [address] Dr. Jag Waldrop IG % 0.5 % Normal 0.0-0.5 [facility] Comment on above: Performed By: #### P OCGLUC #### [facility] [address] [place] [address] Dr. Jag Waldrop LYMPH # 2.1 103/ul Normal 1.2-3.8 [facility] [place] Comment on above: Performed By: #### P OCGLUC #### [facility] [address] [place] [address] Dr. Jag Waldrop Lymphocytes/100 WBC (Bld) 34.1 % Normal 20.5-60.0 [facility] Comment on above: Performed By: #### P OCGLUC #### [facility] [address] [place] [address] Dr. aJg Waldrop MANUAL DIFF REQ NO Normal [facility] Comment on above: Performed By: #### P OCGLUC #### [facility] [address] [place] [address] Dr. Jag Waldrop MCH (RBC) [Entitic mass] 28.4 pg Normal 26.7-34.0 [facility] Comment on above: Performed By: #### P OCGLUC #### [facility] [address] [place] [address] Dr. Jag Waldrop MCHC (RBC) [Mass/Vol] 31.1 g/dL Normal 29.9-35.2 [facility] Comment on above: Performed By: #### P OCGLUC #### [facility] [address] [place] [address] Dr. Jag Waldrop MCV (RBC) [Entitic vol] 91.5 fL Normal 81.0-99.0 [facility] Comment on above: Performed By: #### P OCGLUC #### [facility] [address] [place] [address] Dr. Jag Waldrop MONO # 0.5 103/ul Normal 0.3-0.8 [facility] Comment on above: Performed By: #### P OCGLUC #### [facility] [address] [place] [address] Dr. Jag Waldrop Monocytes/100 WBC (Bld) 8.4 % Normal 1.7-12.0 [facility] Comment on above: Performed By: #### P OCGLUC #### [facility] [address] [place] [address] Dr. Jag Waldrop NEUT # 3.3 103/ul Normal 1.4-6.5 [facility] Comment on above: Performed By: #### P OCGLUC #### [facility] [address] [place] [address] Dr. Jag Waldrop Neutrophils/100 WBC (Bld) 54.1 % Normal 43.0-75.0 [facility] Comment on above: Performed By: #### P OCGLUC #### [facility] [address] [place] [address] Dr. Jag Waldrop Platelet mean volume (Bld) [Entitic vol] 10.6 fL Normal 9.5-13.5 [facility] Comment on above: Performed By: #### P OCGLUC #### [facility] [address] [place] [address] Dr. Jag Waldrop PLT 294 103/ul Normal 150-450 [facility] Comment on above: Performed By: #### P OCGLUC #### [facility] [address] [place] [address] Dr. Jag Waldrop RBC 4.01 106/ul Critically low 4.20-5.40 [facility] Comment on above: Performed By: #### P OCGLUC #### [facility] [address] [place] [address] Dr. Jag Waldrop WBC 6.2 103/ul Normal 4.0-11.0 [facility] Comment on above: Performed By: #### P OCGLUC #### [facility] [address] [place] [address] Dr. Jag Waldrop CRPon 02-19-2022 CRP [Mass/Vol] mg/L Normal <=1.0 [facility] Comment on above: Performed By: #### E RUR #### [facility] [address] [place] [address] TSPINE WO CONon [...] ALEX AVINA Date: 2022-02-19 19:25 Normal [facility] ER URINE PROFILEon 2 Bilirubin Ql (U) Negative Normal NEGATIVE [facility] Comment on above: Performed By: #### P OCGLUC #### [facility] [address] [address] [address] Jag Waldrop Clarity (U) CLEAR Normal CLEAR [facility] Comment on above: Performed By: #### P OCGLUC #### [facility] [address] [address] [address] Jag Waldrop Color (U) LT. YELLOW Normal YELLOW [facility] Comment on above: Performed By: #### P OCGLUC #### [facility] [address] [place] [address] Dr. Jag Waldrop ERUAHD A micrscopic examina tion will be performed if indicated. Normal [facility] Comment on above: Performed By: #### P OCGLUC #### [facility] [address] [address] [address] Jag Waldrop Glucose Ql (U) Negative Normal NEGATIVE [facility] Comment on above: Performed By: #### P OCGLUC #### [facility] [address] [address] [address] Jag Waldrop Hemoglobin Ql (U) Negative Normal NEGATIVE [facility] Comment on above: Performed By: #### P OCGLUC #### [facility] [address] [address] [address] Jag Waldrop Ketones Ql (U) Negative Normal NEGATIVE [facility] Comment on above: Performed By: #### P OCGLUC #### [facility] [address] [address] [address] Jag Waldrop LEUKOCYTES Negative Normal NEGATIVE [facility] Comment on above: Performed By: #### P OCGLUC #### [facility] [address] [address] [address] Jag Waldrop Nitrite Ql (U) Negative Normal NEGATIVE [facility] Comment on above: Performed By: #### P OCGLUC #### [facility] [address] [place] [address] Dr. Jag Waldrop pH (U) 5.5 [pH] Normal 5-9 [facility] Comment on above: Performed By: #### P OCGLUC #### [facility] [address] [place] [address] Dr. Jag Waldrop SPEC GRAVITY 1.020 Normal 1.005-<=1.0 25 [facility] Comment on above: Performed By: #### P OCGLUC #### [facility] [address] [place] [address] Dr. Jag Waldrop UA PROTEIN Negative Normal NEGATIVE/ TRACE [facility] Comment on above: Performed By: #### P OCGLUC #### [facility] [address] [place] [address] Dr. Jag Waldrop UR MICRO IND NOT INDICATED Normal [facility] Comment on above: Performed By: #### P OCGLUC #### [facility] [address] [place] [address] Dr. Jag Waldrop Urobilinogen Qn (U) 0.2 {Chris'U}/dL Normal 0.2 - 1. 0 [facility] Comment on above: Performed By: #### P OCGLUC #### [facility] [address] [place] [address] Dr. Jag Waldrop PROF CHEM 8 (BAS METB)on Anion gap [Moles/Vol] 10.8 mmol/L Normal [facility] Comment on above: Performed By: #### E RUR #### [facility] [address] [place] [address] Dr. Jag Waldrop Calcium [Mass/Vol] 9.0 mg/dL Normal 8.5-10.1 [facility] Comment on above: Performed By: #### E RUR #### [facility] [address] [place] [address] Dr. Jag Waldrop Chloride [Moles/Vol] 106 mmol/L Normal 98-107 [facility] Comment on above: Performed By: #### E RUR #### [facility] [address] [address] [address] Jag Waldrop CO2 [Moles/Vol] 28.1 mmol/L Normal 21.0-32.0 [facility] Comment on above: Performed By: #### E RUR #### [facility] [address] [address] [address] Jag Waldrop Creatinine [Mass/Vol] 1.06 mg/dL Critically high 0.55-1.02 [facility] Comment on above: Performed By: #### E RUR #### [facility] [address] [address] [address] Jag Waldrop EGFR-AF [place]IZ[place] >60 Normal >=60 [facility] Comment on above: Performed By: #### E RUR #### [facility] [address] [place] [address] Dr. Jag Waldrop EGFR-NON AF [place] 55 mL/min/1.73m2 Critically low >=60 [facility] Comment on above: Performed By: #### E RUR #### [facility] [address] [place] [address] Dr. Jag Waldrop Glucose [Mass/Vol] 89 mg/dL Normal 74-106 [facility] Comment on above: Performed By: #### E RUR #### [facility] [address] [place] [address] Dr. Jag Waldrop Potassium [Moles/Vol] 3.9 mmol/L Normal 3.5-5.1 [facility] Comment on above: Performed By: #### E RUR #### [facility] [address] [place] [address] Dr. Jag Waldrop Sodium [Moles/Vol] 141 mmol/L Normal 136-145 [facility] Comment on above: Performed By: #### E RUR #### [facility] [address] [place] [address] Dr. Jag Waldrop Urea nitrogen [Mass/Vol] 19.0 mg/dL Critically high 7.0-18.0 [facility] Comment on above: Performed By: #### E RUR #### [facility] [address] [place] [address] Dr. Jag Waldrop Urea nitrogen/Creatinine [Mass ratio] 17.9 mg/mg Normal [facility] Comment on above: Performed By: #### E RUR #### [facility] [address] [place] [address] Dr. Jag Waldrop [facility] SED RATE 19 mm/hr Normal <=30 [facility] Comment on above: Performed By: #### L IPID, BMP #### [facility] [address] [place] [address] Dr. Jag Waldrop PROF CHEM 8 (BAS METB)on Anion gap [Moles/Vol] 17.3 mmol/L Normal [facility] Comment on above: Performed By: #### L IPID, BMP #### [facility] [address] [place] [address] Dr. Jag Waldrop Calcium [Mass/Vol] 9.2 mg/dL Normal 8.5-10.1 [facility] Comment on above: Performed By: #### L IPID, BMP #### [facility] [address] [place] [address] Dr. Jag Waldrop Chloride [Moles/Vol] 108 mmol/L Critically high 98-107 [facility] Comment on above: Performed By: #### L IPID, BMP #### [facility] [address] [place] [address] Dr. Jag Waldrop CO2 [Moles/Vol] 20.0 mmol/L Critically low 21.0-32.0 [facility] Comment on above: Performed By: #### L IPID, BMP #### [facility] [address] [place] [address] Dr. Jag Waldrop Creatinine [Mass/Vol] 1.40 mg/dL Critically high 0.55-1.02 [facility] Comment on above: Performed By: #### L IPID, BMP #### [facility] [address] [place] [address] Dr. Jag Waldrop EGFR-AF [place] 48 mL/min/1.73m2 Critically low >=60 [facility] Comment on above: Performed By: #### L IPID, BMP #### [facility] [address] [place] [address] Dr. Jag Waldrop EGFR-NON AF [place] 40 mL/min/1.73m2 Critically low >=60 [facility] Comment on above: Performed By: #### L IPID, BMP #### [facility] [address] [place] [address] Dr. Jag Waldrop Glucose [Mass/Vol] 126 mg/dL Critically high 74-106 [facility] Comment on above: Performed By: #### L IPID, BMP #### [facility] [address] [place] [address] Dr. Jag Waldrop Potassium [Moles/Vol] 5.3 mmol/L Critically high 3.5-5.1 [facility] Comment on above: Performed By: #### L IPID, BMP #### [facility] [address] [place] [address] Dr. Jag Waldrop Sodium [Moles/Vol] 140 mmol/L Normal 136-145 [facility] Comment on above: Performed By: #### L IPID, BMP #### [facility] [address] [place] [address] Dr. Jag Waldrop Urea nitrogen [Mass/Vol] 31.0 mg/dL Critically high 7.0-18.0 [facility] Comment on above: Performed By: #### L IPID, BMP #### [facility] [address] [place] [address] Dr. Jag Waldrop Urea nitrogen/Creatinine [Mass ratio] 22.1 mg/mg Normal [facility] Comment on above: Performed By: #### L IPID, BMP #### [facility] [address] [place] [address] Dr. Jag Waldrop CBC AUTO DIFFon 01-23-2022 BASO # 0.1 103/ul Normal 0.0-0.1 [facility] Comment on above: Performed By: #### C BC #### [facility] [address] [place] [address] Dr. Jag Waldrop Basophils/100 WBC (Bld) 1.0 % Normal 0.2-2.0 [facility] Comment on above: Performed By: #### C BC #### [facility] [address] [place] [address] Dr. Jag Waldrop EO # 0.2 103/ul Normal 0.0-0.7 [facility] Comment on above: Performed By: #### C BC #### [facility] [address] [place] [address] Dr. Jag Waldrop Eosinophils/100 WBC (Bld) 3.3 % Normal 0.9-7.0 [facility] Comment on above: Performed By: #### C BC #### [facility] [address] [place] [address] Dr. Jag Waldrop Erythrocyte distribution width (RBC) [Ratio] 13.2 % Normal 11.0-15.0 [facility] Comment on above: Performed By: #### C BC #### [facility] [address] [place] [address] Dr. Jag Waldrop Hematocrit (Bld) [Volume fraction] 35.6 % Critically low 36.0-48.0 [facility] Comment on above: Performed By: #### C BC #### [facility] [address] [place] [address] Dr. Jag Waldrop Hemoglobin (Bld) [Mass/Vol] 10.6 g/dL Critically low 12.0-16.0 [facility] Comment on above: Performed By: #### C BC #### [facility] [address] [place] [address] Dr. Jag Waldrop IG # 0.01 10e3/ul Normal 0.00-0.03 [facility] Comment on above: Performed By: #### C BC #### [facility] [address] [place] [address] Dr. Jag Waldrop IG % 0.2 % Normal 0.0-0.5 [facility] Comment on above: Performed By: #### C BC #### [facility] [address] [place] [address] Dr. Jag Waldrop LYMPH # 1.7 103/ul Normal 1.2-3.8 [facility] Comment on above: Performed By: #### C BC #### [facility] [address] [place] [address] Dr. Jag Waldrop Lymphocytes/100 WBC (Bld) 35.4 % Normal 20.5-60.0 [facility] Comment on above: Performed By: #### C BC #### [facility] [address] [place] [address] Dr. Jag Waldrop MANUAL DIFF REQ NO Normal [facility] Comment on above: Performed By: #### C BC #### [facility] [address] [place] [address] Dr. Jag Waldrop MCH (RBC) [Entitic mass] 29.0 pg Normal 26.7-34.0 [facility] Comment on above: Performed By: #### C BC #### [facility] [address] [place] [address] Dr. Jag Waldrop MCHC (RBC) [Mass/Vol] 29.8 g/dL Critically low 29.9-35.2 [facility] Comment on above: Performed By: #### C BC #### [facility] [address] [place] [address] Dr. Jag Waldrop MCV (RBC) [Entitic vol] 97.3 fL Normal 81.0-99.0 [facility] Comment on above: Performed By: #### C BC #### [facility] [address] [place] [address] Dr. Jag Waldrop MONO # 0.3 103/ul Normal 0.3-0.8 [facility] Comment on above: Performed By: #### C BC #### [facility] [address] [place] [address] Dr. Jag Waldrop Monocytes/100 WBC (Bld) 6.8 % Normal 1.7-12.0 [facility] Comment on above: Performed By: #### C BC #### [facility] [address] [place] [address] Dr. Jag Waldrop NEUT # 2.6 103/ul Normal 1.4-6.5 [facility] Comment on above: Performed By: #### C BC #### [facility] [address] [place] [address] Dr. Jag Waldrop Neutrophils/100 WBC (Bld) 53.3 % Normal 43.0-75.0 [facility] Comment on above: Performed By: #### C BC #### [facility] [address] [place] [address] Dr. Jag Waldrop Platelet mean volume (Bld) [Entitic vol] 11.0 fL Normal 9.5-13.5 [facility] Comment on above: Performed By: #### C BC #### [facility] [address] [place] [address] Dr. Jag Waldrop PLT 230 103/ul Normal 150-450 [facility] Comment on above: Performed By: #### C BC #### [facility] [address] [place] [address] Dr. Jag Waldrop RBC 3.66 106/ul Critically low 4.20-5.40 [facility] Comment on above: Performed By: #### C BC #### [facility] [address] [place] [address] Dr. Jag Waldrop WBC 4.8 103/ul Normal 4.0-11.0 [facility] Comment on above: Performed By: #### C BC #### [facility] [address] [place] [address] Dr. Jag Waldrop FERRITINon 01-23-2022 Ferritin [Mass/Vol] 35.0 ng/mL Normal 8.0-252.0 [facility] Comment on above: Performed By: #### L IPID, BMP #### [facility] [address] [place] [address] Dr. Jag Waldrop IRONon 01-23-2022 Iron [Mass/Vol] 71.0 ug/dL Normal 50.0-170.0 [facility] Comment on above: Performed By: #### L IPID, BMP #### [facility] [address] [place] [address] Dr. Jag Waldrop LIPID PROFILEon 01-23-2022 CHOL-HDL RATIO NORM SEE BELOW Normal [facility] Comment on above: Result Comment: 3.3 - 4.4 LOW RISK 4.4 - 7.1 AVERAGE RISK 7.1 - 11.0 MODERATE RISK >11.0 HIGH RISK Performed By: #### L IPID, BMP #### [facility] [address] [address] [address] Jag Waldrop Cholesterol [Mass/Vol] 133 mg/dL Normal <=200 [facility] Comment on above: Performed By: #### L IPID, BMP #### [facility] [address] [address] [address] Jag Waldrop Cholesterol in HDL [Mass/Vol] 41 mg/dL Normal 40-60 [facility] Comment on above: Performed By: #### L IPID, BMP #### [facility] [address] [address] [address] Jag Waldrop Cholesterol in LDL [Mass/Vol] 70.8 mg/dL Normal [facility] Comment on above: Performed By: #### L IPID, BMP #### [facility] [address] [address] [address] Jag Waldrop Cholesterol.total/Chol esterol in HDL [Mass ratio] 3.2 {ratio} Normal [facility] Comment on above: Performed By: #### L IPID, BMP #### [facility] [address] [address] [address] Jag Waldrop HDL NORMAL > or = 60 mg/dl - LO W CARDIOVASCULAR RISK <40 mg/dl - HIGH CARDIOVASCULAR RISK Normal [facility] Comment on above: Performed By: #### L IPID, BMP #### [facility] [address] [address] [address] Jag Waldrop LDL CALC NORMAL SEE BELOW Normal [facility] Comment on above: Result Comment: <100 mg/dl OPTIMAL 100 - 129 mg/dl NEAR OR ABOVE OPTIMAL 130 - 159 mg/dl BORDERLINE HIGH 160 - 189 mg/dl HIGH >190 mg/dl VERY HIGH Performed By: #### L IPID, BMP #### [facility] [address] [address] [address] Jag Waldrop Triglyceride [Mass/Vol] 106 mg/dL Normal <=150 [facility] Comment on above: Performed By: #### L IPID, BMP #### [facility] [address] [place] [address] Dr. Jag Waldrop VLDL CALC 21.2 mg/dL Normal [facility] Comment on above: Performed By: #### L IPID, BMP #### [facility] [address] [address] [address] Jag Waldrop PROF CHEM 8 (BAS METB)on Anion gap [Moles/Vol] 18.2 mmol/L Normal [facility] Comment on above: Performed By: #### L IPID, BMP #### [facility] [address] [place] [address] Dr. Jag Waldrop Calcium [Mass/Vol] 9.3 mg/dL Normal 8.5-10.1 [facility] Comment on above: Performed By: #### L IPID, BMP #### [facility] [address] [place] [address] Dr. Jag Waldrop Chloride [Moles/Vol] 111 mmol/L Critically high 98-107 [facility] Comment on above: Performed By: #### L IPID, BMP #### [facility] [address] [place] [address] Dr. Jag Waldrop CO2 [Moles/Vol] 19.9 mmol/L Critically low 21.0-32.0 [facility] Comment on above: Performed By: #### L IPID, BMP #### [facility] [address] [place] [address] Dr. Jag Waldrop Creatinine [Mass/Vol] 1.27 mg/dL Critically high 0.55-1.02 [facility] Comment on above: Performed By: #### L IPID, BMP #### [facility] [address] [place] [address] Dr. Jag Waldrop EGFR-AF [place] 54 mL/min/1.73m2 Critically low >=60 [facility] Comment on above: Performed By: #### L IPID, BMP #### [facility] [address] [address] [address] Jag Waldrop EGFR-NON AF [place] CIT[place] 44 mL/min/1.73m2 Critically low >=60 [facility] Comment on above: Performed By: #### L IPID, BMP #### [facility] [address] [address] [address] Jag Waldrop Glucose [Mass/Vol] 129 mg/dL Critically high 74-106 [facility] Comment on above: Performed By: #### L IPID, BMP #### [facility] [address] [address] [address] Jag Waldrop Potassium [Moles/Vol] 6.1 mmol/L Critically high 3.5-5.1 [facility] Comment on above: Performed By: #### L IPID, BMP #### [facility] [address] [place] [address] Dr. Jag Waldrop Sodium [Moles/Vol] 142 mmol/L Normal 136-145 [facility] Comment on above: Performed By: #### L IPID, BMP #### [facility] [address] [address] [address] Jag Waldrop Urea nitrogen [Mass/Vol] 35.0 mg/dL Critically high 7.0-18.0 [facility] Comment on above: Performed By: #### L IPID, BMP #### [facility] [address] [place] [address] Dr. Jag Waldrop Urea nitrogen/Creatinine [Mass ratio] 27.6 mg/mg Normal [facility] Comment on above: Performed By: #### L IPID, BMP #### [facility] [address] [address] [address] Jag Waldrop VITAMIN B12on 01-23-2022 Cobalamin (Vitamin B12) [Mass/Vol] 267.0 pg/mL Normal 193.0-986.0 [facility] Comment on above: Performed By: #### L IPID, BMP #### [facility] [address] [place] [address] Dr. Jag Waldrop XR CSPINE 2_3 VIEWSon [...] KATHY LOBATO Date: 2022-01-12 09:39 Normal [facility] BNPon 12-21-2021 Natriuretic peptide B (Bld) [Mass/Vol] 283.0 pg/mL Normal <=900.0 [facility] Comment on above: Performed By: #### P OCGLUC #### [facility] [address] [place] [address] Dr. Jag Waldrop CBC AUTO DIFFon 12-21-2021 BASO # 0.1 103/ul Normal 0.0-0.1 [facility] Comment on above: Performed By: #### L IPID, BMP #### [facility] [address] [place] [address] Dr. Jag Waldrop Basophils/100 WBC (Bld) 0.8 % Normal 0.2-2.0 [facility] Comment on above: Performed By: #### L IPID, BMP #### [facility] [address] [place] [address] Dr. Jag Waldrop EO # 0.3 103/ul Normal 0.0-0.7 [facility] Comment on above: Performed By: #### L IPID, BMP #### [facility] [address] [place] [address] Dr. Jag Waldrop Eosinophils/100 WBC (Bld) 3.8 % Normal 0.9-7.0 [facility] Comment on above: Performed By: #### L IPID, BMP #### [facility] [address] [place] [address] Dr. Jag Waldrop Erythrocyte distribution width (RBC) [Ratio] 13.2 % Normal 11.0-15.0 [facility] Comment on above: Performed By: #### L IPID, BMP #### [facility] [address] [place] [address] Dr. Jag Waldrop Hematocrit (Bld) [Volume fraction] 34.8 % Critically low 36.0-48.0 [facility] Comment on above: Performed By: #### L IPID, BMP #### [facility] [address] [place] [address] Dr. Jag Waldrop Hemoglobin (Bld) [Mass/Vol] 10.6 g/dL Critically low 12.0-16.0 [facility] Comment on above: Performed By: #### L IPID, BMP #### [facility] [address] [place] [address] Dr. Jag Waldrop IG # 0.02 10e3/ul Normal 0.00-0.03 [facility] Comment on above: Performed By: #### L IPID, BMP #### [facility] [address] [place] [address] Dr. Jag Waldrop IG % 0.3 % Normal 0.0-0.5 [facility] Comment on above: Performed By: #### L IPID, BMP #### [facility] [address] [place] [address] Dr. Jag Waldrop LYMPH # 1.7 103/ul Normal 1.2-3.8 [facility] Comment on above: Performed By: #### L IPID, BMP #### [facility] [address] [place] [address] Dr. Jag Waldrop Lymphocytes/100 WBC (Bld) 23.8 % Normal 20.5-60.0 [facility] Comment on above: Performed By: #### L IPID, BMP #### [facility] [address] [place] [address] Dr. Jag Waldrop MANUAL DIFF REQ NO Normal [facility] Comment on above: Performed By: #### L IPID, BMP #### [facility] [address] [place] [address] Dr. Jag Waldrop MCH (RBC) [Entitic mass] 29.1 pg Normal 26.7-34.0 [facility] Comment on above: Performed By: #### L IPID, BMP #### [facility] [address] [place] [address] Dr. Jag Waldrop MCHC (RBC) [Mass/Vol] 30.5 g/dL Normal 29.9-35.2 [facility] Comment on above: Performed By: #### L IPID, BMP #### [facility] [address] [place] [address] Dr. Jag Waldrop MCV (RBC) [Entitic vol] 95.6 fL Normal 81.0-99.0 [facility] Comment on above: Performed By: #### L IPID, BMP #### [facility] [address] [place] [address] Dr. Jag Waldrop MONO # 0.7 103/ul Normal 0.3-0.8 [facility] Comment on above: Performed By: #### L IPID, BMP #### [facility] [address] [place] [address] Dr. Jag Waldrop Monocytes/100 WBC (Bld) 9.3 % Normal 1.7-12.0 [facility] Comment on above: Performed By: #### L IPID, BMP #### [facility] [address] [place] [address] Dr. Jag Waldrop NEUT # 4.4 103/ul Normal 1.4-6.5 [facility] Comment on above: Performed By: #### L IPID, BMP #### [facility] [address] [place] [address] Dr. Jag Waldrop Neutrophils/100 WBC (Bld) 62.0 % Normal 43.0-75.0 [facility] Comment on above: Performed By: #### L IPID, BMP #### [facility] [address] [place] [address] Dr. Jag Waldrop Platelet mean volume (Bld) [Entitic vol] 11.5 fL Normal 9.5-13.5 [facility] Comment on above: Performed By: #### L IPID, BMP #### [facility] [address] [place] [address] Dr. Jag Waldrop PLT 235 103/ul Normal 150-450 [facility] Comment on above: Performed By: #### L IPID, BMP #### [facility] [address] [address] [address] Jag Waldrop RBC 3.64 106/ul Critically low 4.20-5.40 [facility] Comment on above: Performed By: #### L IPID, BMP #### [facility] [address] [place] [address] Dr. Jag Waldrop WBC 7.1 103/ul Normal 4.0-11.0 [facility] Comment on above: Performed By: #### L IPID, BMP #### [facility] [address] [place] [address] Dr. Jag Waldrop CRPon 12-21-2021 CRP 1.1 mg/dL Critically high <=1.0 [facility] Comment on above: Performed By: #### B MP #### [facility] [address] [place] [address] Dr. Jag Waldrop [facility] SARS-CoV-2 (COVID-19) RNA PRINCE+probe Ql (Unsp spec) Not detected Normal NOT DETECTED [facility] Comment on above: Result Comment: This test is not yet approved or cleared by the [place] FDA. When there are no FDA-approved or cleared tests available, and other criteria are met, FDA can make tests available under an emergency access mechanism called an Emergency Use Authorization (EUA). The EUA for this test is supported by the [place] of Health and Human Service's (HHS's) declaration [...] Performed By: #### L IPID, BMP #### [facility] [address] [place] [address] Dr. Jga Waldrop PROF CHEM 8 (BAS METB)on Anion gap [Moles/Vol] 13.3 mmol/L Normal [facility] Comment on above: Performed By: #### B MP #### [facility] [address] [place] [address] Dr. Jag Waldrop Calcium [Mass/Vol] 8.7 mg/dL Normal 8.5-10.1 [facility] Comment on above: Performed By: #### B MP #### [facility] [address] [place] [address] Dr. Jag Waldrop Chloride [Moles/Vol] 107 mmol/L Normal 98-107 [facility] Comment on above: Performed By: #### B MP #### [facility] [address] [place] [address] Dr. Jag Waldrop CO2 [Moles/Vol] 23.2 mmol/L Normal 21.0-32.0 [facility] Comment on above: Performed By: #### B MP #### [facility] [address] [place] [address] Dr. Jag Waldrop Creatinine [Mass/Vol] 1.55 mg/dL Critically high 0.55-1.02 [facility] Comment on above: Performed By: #### B MP #### [facility] [address] [place] [address] Dr. Jag Waldrop EGFR-AF [place] 43 mL/min/1.73m2 Critically low >=60 [facility] Comment on above: Performed By: #### B MP #### [facility] [address] [place] [address] Dr. Jag Waldrop EGFR-NON AF [place] 35 mL/min/1.73m2 Critically low >=60 [facility] Comment on above: Performed By: #### B MP #### [facility] [address] [address] [address] Jag Waldrop Glucose [Mass/Vol] 123 mg/dL Critically high 74-106 [facility] Comment on above: Performed By: #### B MP #### [facility] [address] [address] [address] Jag Waldrop Potassium [Moles/Vol] 4.5 mmol/L Normal 3.5-5.1 [facility] Comment on above: Performed By: #### B MP #### [facility] [address] [address] [address] Jag Waldrop Sodium [Moles/Vol] 139 mmol/L Normal 136-145 [facility] Comment on above: Performed By: #### B MP #### [facility] [address] [address] [address] Jag Waldrop Urea nitrogen [Mass/Vol] 36.0 mg/dL Critically high 7.0-18.0 [facility] Comment on above: Performed By: #### B MP #### [facility] [address] [place] [address] Dr. Jag Waldrop Urea nitrogen/Creatinine [Mass ratio] 23.2 mg/mg Normal [facility] Comment on above: Performed By: #### B MP #### [facility] [address] [place] [address] Dr. Jag Waldrop SED RATE WESTERGRENon 2021 SED RATE 26 mm/hr Normal <=30 [facility] Comment on above: Performed By: #### S EDR #### [facility] [address] [place] [address] Dr. Jag Waldrop XR CHEST 2 Von [...] by: ALEX ALLEN Date: 2021-12-21 18:35 Normal [facility] OVA AND PARASITE EXAMINATION on 12-06-2021 Ova + Parasite Exam Final report Normal [facility] Comment on above: Result Comment: Thes e results were obtained using wet preparation(s) and trichrome stained smear. This test does not include testing for Cryptosporidium parvum, Cyclospora, or Microsporidia. Performed By: #### L IPID, BMP #### [facility] [address] [place] [address] Dr. Jag Waldrop Result 1 Comment Normal [facility] Comment on above: Result Comment: No o va, cysts, or parasites seen. . One negative specimen does not rule out the possibility of a parasitic infection. Performed By: #### L IPID, BMP #### [facility] [address] [place] [address] Dr. Jag Waldrop STOOL CULTUREon 12-05-2021 Campylobacter Culture Final report Normal [facility] Comment on above: Performed By: #### C XSTOOL #### [facility] [address] [place] [address] Dr. Jag Waldrop E coli Shiga Toxin EIA Negative Normal Negative [facility] Comment on above: Performed By: #### C XSTOOL #### [facility] [address] [place] [address] Dr. Jag Waldrop Result 1 Comment Normal [facility] Comment on above: Result Comment: No S almonella or Shigella recovered. Performed By: #### C XSTOOL #### [facility] [address] [place] [address] Dr. Jag Waldrop Result Comment: No C ampylobacter species isolated. Salmonella/Shigella Screen Final report Normal [facility] Comment on above: Performed By: #### C XSTOOL #### [facility] [address] [place] [address] Dr. Jag Waldrop GI PANEL (PCR)on 08-17-2022 Adenovirus F 40/41 Not detected Normal NOT DETECTED [facility] Comment on above: Performed By: #### E RUR #### [facility] [address] [place] [address] Dr. Jag Waldrop Astrovirus Not detected Normal NOT DETECTED [facility] Comment on above: Performed By: #### E RUR #### [facility] [address] [place] [address] Dr. Jag Waldrop C. Diff toxin A/B Detected Critically abnormal NOT DETECTED [facility] Comment on above: Performed By: #### E RUR #### [facility] [address] [place] [address] Dr. Jag Waldrop Campylobacter Not detected Normal NOT DETECTED [facility] Comment on above: Performed By: #### E RUR #### [facility] [address] [place] [address] Dr. Jag Waldrop Cryptosporidium Not detected Normal NOT DETECTED [facility] Comment on above: Performed By: #### E RUR #### [facility] [address] [place] [address] Dr. Jag Waldrop Cyclos. Cayetanensis Not detected Normal NOT DETECTED [facility] Comment on above: Performed By: #### E RUR #### [facility] [address] [place] [address] Dr. Jag Waldrop E. Coli O157 Not Applicable Normal Not Applicable [facility] Comment on above: Performed By: #### E RUR #### [facility] [address] [place] [address] Dr. Jag Waldrop E. histolytica Not detected Normal NOT DETECTED [facility] Comment on above: Performed By: #### E RUR #### [facility] [address] [place] [address] Dr. Jag Waldrop EAEC Not detected Normal NOT DETECTED [facility] Comment on above: Performed By: #### E RUR #### [facility] [address] [place] [address] Dr. Jag Waldrop EIEC Not detected Normal NOT DETECTED [facility] Comment on above: Performed By: #### E RUR #### [facility] [address] [place] [address] Dr. Jag Waldrop EPEC Not detected Normal NOT DETECTED [facility] Comment on above: Performed By: #### E RUR #### [facility] [address] [place] [address] Dr. Jag Waldrop ETEC Not detected Normal NOT DETECTED [facility] Comment on above: Performed By: #### E RUR #### [facility] [address] [place] [address] Dr. Jag Wladrop G. Lamblia Not detected Normal NOT DETECTED [facility] Comment on above: Performed By: #### E RUR #### [facility] [address] [place] [address] Dr. Jag TANG CONTROLS PASSED Normal [facility] Comment on above: Performed By: #### E RUR #### [facility] [address] [place] [address] Dr. Jag TEJEDA HEADER GI PANEL BACTERIA Normal [facility] Comment on above: Performed By: #### E RUR #### [facility] [address] [place] [address] Dr. Jag SANCHEZ ECOLI GI PANEL DIARRHEAGEN IC E.COLI / SHIGELLA Normal [facility] Comment on above: Performed By: #### E RUR #### [facility] [address] [place] [address] Dr. Jag SANCHEZ INFO SEE BELOW Normal [facility] Comment on above: Result Comment: EAEC - Enteroaggregative E. Coli EPEC- Enteropathogenic E. Coli ETEC- Enterotoxigenic E. Coli lt/st STEC- Shigella-like toxin-producing E. Coli stx1/stx2 EIEC- Shigella/Enteroinvasive E. Coli Performed By: #### E RUR #### [facility] [address] [place] [address] Dr. Jag SANCHEZ PARASITES GI PANEL PARASITES Normal [facility] Comment on above: Performed By: #### E RUR #### [facility] [address] [place] [address] Dr. Jag Waldrop [facility] GI PANEL VIRUSES Normal [facility] Comment on above: Performed By: #### E RUR #### [facility] [address] [place] [address] Dr. Jag Waldrop Norovirus GI/GII Not detected Normal NOT DETECTED The [facility] [facility] [place] Comment on above: Performed By: #### E RUR #### [facility] [place] [facility] [address] [place] [address] Dr. Jag Waldrop P. Shigelloides Not detected Normal NOT DETECTED [facility] [place] Comment on above: Performed By: #### E RUR #### [facility] [place] [facility] [address] [place] [address] Dr. Jag Waldrop Rotavirus A Not detected Normal NOT DETECTED [facility] [place] Comment on above: Performed By: #### E RUR #### [facility] [place] [facility] [address] [place] [address] Dr. Jag Waldrop Salmonella Not detected Normal NOT DETECTED [facility] [place] Comment on above: Performed By: #### E RUR #### [facility] [place] [facility] [address] [place] [address] Dr. Jag Waldrop Sapovirus Not detected Normal NOT DETECTED [facility] [place] Comment on above: Performed By: #### E RUR #### [facility] [place] [facility] [address] [place] [address] Dr. Jag Waldrop STEC Not detected Normal NOT DETECTED [facility] [place] Comment on above: Performed By: #### E RUR #### [facility] [place] [facility] [address] [place] [address] Dr. Jag Waldrop Vibrio Not detected Normal NOT DETECTED [facility] [place] Comment on above: Performed By: #### E RUR #### [facility] [place] [facility] [address] [place] [address] Dr. Jag Waldrop Vibrio Cholera Not detected Normal NOT DETECTED [facility] [place] Comment on above: Performed By: #### E RUR #### [facility] [place] [facility] [address] [place] [address] Dr. Jag Waldrop Y. Enterocolitica Not detected Normal NOT DETECTED [facility] [place] Comment on above: Performed By: #### E RUR #### [facility] [place] [facility] [address] [address] [address] Jag Waldrop OCC BLD IMMUNO SCREENon 11-14 OCCULT BLOOD Negative Normal NEGATIVE [facility] Comment on above: Performed By: #### L IPID, BMP #### [facility] [place] [facility] [address] [address] [address] Jag Waldrop PROF CHEM 8 (BAS METB)on Anion gap [Moles/Vol] 15.5 mmol/L Normal [facility] Comment on above: Performed By: #### P OCGLUC #### [facility] [place] [facility] [address] [address] [address] Jag Waldrop Calcium [Mass/Vol] 9.1 mg/dL Normal 8.5-10.1 [facility] Comment on above: Performed By: #### P OCGLUC #### [facility] [place] [facility] [address] [address] [address] Jag Waldrop Chloride [Moles/Vol] 106 mmol/L Normal 98-107 [facility] Comment on above: Performed By: #### P OCGLUC #### [facility] [place] [facility] [address] [address] [address] Jag Waldrop CO2 [Moles/Vol] 25.4 mmol/L Normal 21.0-32.0 [facility] Comment on above: Performed By: #### P OCGLUC #### [facility] [place] [facility] [address] [address] [address] Jag Waldrop Creatinine [Mass/Vol] 1.18 mg/dL Critically high 0.55-1.02 [facility] Comment on above: Performed By: #### P OCGLUC #### [facility] [place] [facility] [address] [address] [address] Jag Waldrop EGFR-AF [place] 59 mL/min/1.73m2 Critically low >=60 [facility] Comment on above: Performed By: #### P OCGLUC #### [facility] [place] [facility] [address] [address] [address] Jag Waldrop EGFR-NON AF [place] 48 mL/min/1.73m2 Critically low >=60 [facility] Comment on above: Performed By: #### P OCGLUC #### [facility] [place] [facility] [address] [address] [address] Jag Waldrop Glucose [Mass/Vol] 141 mg/dL Critically high 74-106 [facility] Comment on above: Performed By: #### P OCGLUC #### [facility] [place] [facility] [address] [address] [address] Jag Waldrop Potassium [Moles/Vol] 3.9 mmol/L Normal 3.5-5.1 [facility] Comment on above: Performed By: #### P OCGLUC #### [facility] [place] [facility] [address] [address] [address] Jag Waldrop Sodium [Moles/Vol] 143 mmol/L Normal 136-145 [facility] Comment on above: Performed By: #### P OCGLUC #### [facility] [place] [facility] [address] [address] [address] Jag Waldrop Urea nitrogen [Mass/Vol] 22.0 mg/dL Critically high 7.0-18.0 [facility] Comment on above: Performed By: #### P OCGLUC #### [facility] [place] [facility] [address] [address] [address] Jag Waldrop Urea nitrogen/Creatinine [Mass ratio] 18.6 mg/mg Normal [facility] Comment on above: Performed By: #### P OCGLUC #### [facility] [place] [facility] [address] [address] [address] Jag Waldrop XR KUB 1 VIEWon [...] ALEX ALLEN Date: 2021-10-29 09:01 Normal [facility] [place] CULTURE URINEon 10-28-2021 CULTURE URINE Culture Observations : LIGHT GROWTH OF MIXED GENITAL SANDEE. NO POTENTIAL PATHOGENS SEEN. Normal [facility] Comment on above: Performed By: #### E RUR #### [facility] [place] [facility] [address] [address] [address] Jag Waldrop GLYCOHEMOGLOBIN A1Con 2021 ADA RECOMMENDATION SEE BELOW Normal [facility] Comment on above: Result Comment: ADA RECOMMENDED LIMIT 4.0 - 6.0 ADA THERAPEUTIC TARGET < 7.0 ACTION SUGGESTED > 7.0 Performed By: #### E RUR #### [facility] [place] [facility] [address] [address] [address] Jag Waldrop Glucose [Mass/Vol] 157 mg/dL Normal [facility] Comment on above: Performed By: #### E RUR #### [facility] [place] [facility] [address] [place] [address] Dr. Jag Waldrop HbA1c (Bld) [Mass fraction] 7.1 % Critically high 4.5-6.2 [facility] Comment on above: Performed By: #### E RUR #### [facility] [place] [facility] [address] [place] [address] Dr. Jag Waldrop LIPID PROFILEon 10-28-2021 CHOL-HDL RATIO NORM SEE BELOW Normal [facility] Comment on above: Result Comment: 3.3 - 4.4 LOW RISK 4.4 - 7.1 AVERAGE RISK 7.1 - 11.0 MODERATE RISK >11.0 HIGH RISK Performed By: #### P OCGLUC #### [facility] [place] [facility] [address] [place] [address] Dr. Jag Waldrop Cholesterol [Mass/Vol] 150 mg/dL Normal <=200 [facility] Comment on above: Performed By: #### P OCGLUC #### [facility] [place] [facility] [address] [place] [address] Dr. Jag Waldrop Cholesterol in HDL [Mass/Vol] 39 mg/dL Critically low 40-60 [facility] Comment on above: Performed By: #### P OCGLUC #### [facility] [place] [facility] [address] [place] [address] Dr. Jag Waldrop Cholesterol in LDL [Mass/Vol] 82.6 mg/dL Normal [facility] Comment on above: Performed By: #### P OCGLUC #### [facility] [place] [facility] [address] [address] [address] Jag Waldrop Cholesterol.total/Chol esterol in HDL [Mass ratio] 3.8 {ratio} Normal [facility] Comment on above: Performed By: #### P OCGLUC #### [facility] [place] [facility] [address] [address] [address] Jag Waldrop HDL NORMAL > or = 60 mg/dl - LO W CARDIOVASCULAR RISK <40 mg/dl - HIGH CARDIOVASCULAR RISK Normal [facility] Comment on above: Performed By: #### P OCGLUC #### [facility] [place] [facility] [address] [address] [address] Jag Waldrop LDL CALC NORMAL SEE BELOW Normal [facility] Comment on above: Result Comment: <100 mg/dl OPTIMAL 100 - 129 mg/dl NEAR OR ABOVE OPTIMAL 130 - 159 mg/dl BORDERLINE HIGH 160 - 189 mg/dl HIGH >190 mg/dl VERY HIGH Performed By: #### P OCGLUC #### [facility] [place] [facility] [address] [place] [address] Dr. Jag Waldrop Triglyceride [Mass/Vol] 142 mg/dL Normal <=150 [facility] Comment on above: Performed By: #### P OCGLUC #### [facility] [place] [facility] [address] [address] [address] Jag Waldrop VLDL CALC 28.4 mg/dL Normal [facility] Comment on above: Performed By: #### P OCGLUC #### [facility] [place] [facility] [address] [address] [address] Jag Waldrop PROF CHEM 8 (BAS METB)on Anion gap [Moles/Vol] 16.0 mmol/L Normal [facility] Comment on above: Performed By: #### P OCGLUC #### [facility] [place] [facility] [address] [place] [address] Dr. Jag Waldrop Calcium [Mass/Vol] 8.7 mg/dL Normal 8.5-10.1 [facility] Comment on above: Performed By: #### P OCGLUC #### [facility] [place] [facility] [address] [address] [address] Jag Waldrop Chloride [Moles/Vol] 108 mmol/L Critically high 98-107 [facility] Comment on above: Performed By: #### P OCGLUC #### [facility] [place] [facility] [address] [address] [address] Jag Waldrop CO2 [Moles/Vol] 22.1 mmol/L Normal 21.0-32.0 [facility] Comment on above: Performed By: #### P OCGLUC #### [facility] [place] [facility] [address] [address] [address] Jag Waldrop Creatinine [Mass/Vol] 1.72 mg/dL Critically high 0.55-1.02 [facility] Comment on above: Performed By: #### P OCGLUC #### [facility] [place] [facility] [address] [address] [address] Jag Waldrop EGFR-AF [place] 38 mL/min/1.73m2 Critically low >=60 [facility] Comment on above: Performed By: #### P OCGLUC #### [facility] [place] [facility] [address] [address] [address] Jag Waldrop EGFR-NON AF [place] 31 mL/min/1.73m2 Critically low >=60 [facility] Comment on above: Performed By: #### P OCGLUC #### [facility] [place] [facility] [address] [address] [address] Jag Waldrop Glucose [Mass/Vol] 144 mg/dL Critically high 74-106 [facility] Comment on above: Performed By: #### P OCGLUC #### [facility] [place] [facility] [address] [address] [address] Jag Waldrop Potassium [Moles/Vol] 5.1 mmol/L Normal 3.5-5.1 [facility] Comment on above: Performed By: #### P OCGLUC #### [facility] [place] [facility] [address] [address] [address] Jag Waldrop Sodium [Moles/Vol] 141 mmol/L Normal 136-145 [facility] Comment on above: Performed By: #### P OCGLUC #### [facility] [place] [facility] [address] [place] [address] Dr. Jag Waldrop Urea nitrogen [Mass/Vol] 41.0 mg/dL Critically high 7.0-18.0 [facility] [place] Comment on above: Performed By: #### P OCGLUC #### [facility] [place] [facility] [address] [place] [address] Dr. Jag Waldrop Urea nitrogen/Creatinine [Mass ratio] 23.8 mg/mg Normal [facility] Comment on above: Performed By: #### P OCGLUC #### [facility] [place] [facility] [address] [place] [address] Dr. Jag Waldrop UA (CLEAN/CATCH) PAPER TWISTER TENDER/MICRO I F IND.on 10-28-2021 Bilirubin Ql (U) Negative Normal NEGATIVE [facility] [place] Comment on above: Performed By: #### L IPID, BMP #### [facility] [place] [facility] [address] [place] [address] Dr. Jag Waldrop Clarity (U) SL CLOUDY Abnormal CLEAR [facility] [place] Comment on above: Performed By: #### L IPID, BMP #### [facility] [place] [facility] [address] [place] [address] Dr. Jag Waldrop Color (U) LT. YELLOW Normal YELLOW [facility] [place] Comment on above: Performed By: #### L IPID, BMP #### [facility] [place] [facility] [address] [place] [address] Dr. Jag Waldrop Glucose Ql (U) Negative Normal NEGATIVE [facility] Comment on above: Performed By: #### L IPID, BMP #### [facility] [place] [facility] [address] [place] [address] Dr. Jag Waldrop Hemoglobin Ql (U) TRACE-INTACT Abnormal NEGATIVE [facility] [place] Comment on above: Performed By: #### L IPID, BMP #### [facility] [place] [facility] [address] [place] [address] Dr. Jag Waldrop Ketones Ql (U) Negative Normal NEGATIVE [facility] Comment on above: Performed By: #### L IPID, BMP #### [facility] [place] [facility] [address] [place] [address] Dr. Jag Waldrop LEUKOCYTES SMALL Abnormal NEGATIVE [facility] Comment on above: Performed By: #### L IPID, BMP #### [facility] [place] [facility] [address] [place] [address] Dr. Jag Waldrop Nitrite Ql (U) Negative Normal NEGATIVE [facility] Comment on above: Performed By: #### L IPID, BMP #### [facility] [place] [facility] [address] [place] [address] Dr. Jag Waldrop pH (U) 5.5 [pH] Normal 5-9 [facility] Comment on above: Performed By: #### L IPID, BMP #### [facility] [place] [facility] [address] [place] [address] Dr. Jag Waldrop SPEC GRAVITY 1.020 Normal 1.005-<=1.0 25 [facility] Comment on above: Performed By: #### L IPID, BMP #### [facility] [place] [facility] [address] [place] [address] Dr. Jag Waldrop UA PROTEIN Negative Normal NEGATIVE/ TRACE [facility] [place] Comment on above: Performed By: #### L IPID, BMP #### [facility] [place] [facility] [address] [place] [address] Dr. aJg Waldrop UR MICRO IND INDICATED Normal [facility] [place] Comment on above: Performed By: #### L IPID, BMP #### [facility] [place] [facility] [address] [place] [address] Dr. Jag Waldrop Urobilinogen Qn (U) 0.2 {Chris'U}/dL Normal 0.2 - 1. 0 [facility] Comment on above: Performed By: #### L IPID, BMP #### [facility] [place] [facility] [address] [place] [address] Dr. Jag Waldrop URINE MICROSCOPIC ONLYon BACTERIA TRACE Abnormal NONE SEEN [facility] [place] Comment on above: Performed By: #### L IPID, BMP #### [facility] [place] [facility] [address] [place] [address] Dr. Jag Waldrop Bacteria identified Cx Nom (U) INDICATED Normal [facility] [place] Comment on above: Performed By: #### L IPID, BMP #### [facility] [place] [facility] [address] [place] [address] Dr. Jag Waldrop CAST NONE SEEN Normal NONE SEEN [facility] [place] Comment on above: Performed By: #### L IPID, BMP #### [facility] [place] [facility] [address] [place] [address] Dr. Jag Waldrop Crystals LM Nom (Urine sed) NONE SEEN Normal NONE SEEN [facility] [place] Comment on above: Performed By: #### L IPID, BMP #### [facility] [place] [facility] [address] [place] [address] Dr. Jag Waldrop Epithelial cells LM Ql (Urine sed) RARE Normal NONE SEEN /RARE [facility] [place] Comment on above: Performed By: #### L IPID, BMP #### [facility] [place] [facility] [address] [place] [address] Dr. Jag Waldrop MUCOUS TRACE Abnormal NONE SEEN [facility] [place] Comment on above: Performed By: #### L IPID, BMP #### [facility] [place] [facility] [address] [place] [address] Dr. Jag Waldrop RBC 0-2 Normal 0-2 [facility] Comment on above: Performed By: #### L IPID, BMP #### [facility] [place] [facility] [address] [place] [address] Dr. Jag Waldrop WBC 2-5 Abnormal NONE SEEN [facility] [place] Comment on above: Performed By: #### L IPID, BMP #### [facility] [place] [facility] [address] [place] [address] Dr. Jag Waldrop BNPon 10-02-2021 Natriuretic peptide B (Bld) [Mass/Vol] 52.0 pg/mL Normal <=900.0 [facility] Comment on above: Performed By: #### L IPID, BMP #### [facility] [place] [facility] [address] [place] [address] Dr. Jag Waldrop CBC AUTO DIFFon 10-02-2021 BASO # 0.1 103/ul Normal 0.0-0.1 [facility] Comment on above: Performed By: #### P OCGLUC #### [facility] [place] [facility] [address] [place] [address] Dr. Jag Waldrop Basophils/100 WBC (Bld) 0.8 % Normal 0.2-2.0 [facility] Comment on above: Performed By: #### P OCGLUC #### [facility] [place] [facility] [address] [place] [address] Dr. Jag Waldrop EO # 0.2 103/ul Normal 0.0-0.7 [facility] Comment on above: Performed By: #### P OCGLUC #### [facility] [place] [facility] [address] [place] [address] Dr. Jag Waldrop Eosinophils/100 WBC (Bld) 3.0 % Normal 0.9-7.0 [facility] Comment on above: Performed By: #### P OCGLUC #### [facility] [place] [facility] [address] [place] [address] Dr. Jag Waldrop Erythrocyte distribution width (RBC) [Ratio] 14.2 % Normal 11.0-15.0 [facility] Comment on above: Performed By: #### P OCGLUC #### [facility] [place] [facility] [address] [place] [address] Dr. Jag Waldrop Hematocrit (Bld) [Volume fraction] 35.9 % Critically low 36.0-48.0 [facility] Comment on above: Performed By: #### P OCGLUC #### [facility] [place] [facility] [address] [place] [address] Dr. Jag Waldrop Hemoglobin (Bld) [Mass/Vol] 11.0 g/dL Critically low 12.0-16.0 [facility] Comment on above: Performed By: #### P OCGLUC #### [facility] [place] [facility] [address] [place] [address] Dr. Jag Waldrop IG # 0.03 10e3/ul Normal 0.00-0.03 [facility] Comment on above: Performed By: #### P OCGLUC #### [facility] [place] [facility] [address] [place] [address] Dr. Jag Waldrop IG % 0.4 % Normal 0.0-0.5 [facility] Comment on above: Performed By: #### P OCGLUC #### [facility] [place] [facility] [address] [place] [address] Dr. Jag Waldrop LYMPH # 2.8 103/ul Normal 1.2-3.8 [facility] Comment on above: Performed By: #### P OCGLUC #### [facility] [place] [facility] [address] [place] [address] Dr. Jag Waldrop Lymphocytes/100 WBC (Bld) 37.9 % Normal 20.5-60.0 [facility] Comment on above: Performed By: #### P OCGLUC #### [facility] [place] [facility] [address] [place] [address] Dr. Jag Waldrop MANUAL DIFF REQ NO Normal [facility] Comment on above: Performed By: #### P OCGLUC #### [facility] [place] [facility] [address] [place] [address] Dr. Jag Waldrop MCH (RBC) [Entitic mass] 28.7 pg Normal 26.7-34.0 [facility] Comment on above: Performed By: #### P OCGLUC #### [facility] [place] [facility] [address] [place] [address] Dr. Jag Waldrop MCHC (RBC) [Mass/Vol] 30.6 g/dL Normal 29.9-35.2 [facility] Comment on above: Performed By: #### P OCGLUC #### [facility] [place] [facility] [address] [place] [address] Dr. Jag Waldrop MCV (RBC) [Entitic vol] 93.7 fL Normal 81.0-99.0 [facility] Comment on above: Performed By: #### P OCGLUC #### [facility] [place] [facility] [address] [place] [address] Dr. Jag Waldrop MONO # 0.5 103/ul Normal 0.3-0.8 [facility] Comment on above: Performed By: #### P OCGLUC #### [facility] [facility] [address] [place] [address] Dr. Jag Waldrop Monocytes/100 WBC (Bld) 7.4 % Normal 1.7-12.0 [facility] Comment on above: Performed By: #### P OCGLUC #### [facility] [address] [place] [address] Dr. Jag Waldrop NEUT # 3.7 103/ul Normal 1.4-6.5 [facility] Comment on above: Performed By: #### P OCGLUC #### [facility] [address] [address] [address] Jag Waldrop Neutrophils/100 WBC (Bld) 50.5 % Normal 43.0-75.0 [facility] Comment on above: Performed By: #### P OCGLUC #### [facility] [address] [address] [address] Jag Waldrop Platelet mean volume (Bld) [Entitic vol] 10.2 fL Normal 9.5-13.5 [facility] Comment on above: Performed By: #### P OCGLUC #### [facility] [address] [address] [address] Jag Waldrop PLT 261 103/ul Normal 150-450 [facility] Comment on above: Performed By: #### P OCGLUC #### [facility] [address] [address] [address] Jag Waldrop RBC 3.83 106/ul Critically low 4.20-5.40 [facility] Comment on above: Performed By: #### P OCGLUC #### [facility] [address] [address] [address] Jag Waldrop WBC 7.3 103/ul Normal 4.0-11.0 [facility] Comment on above: Performed By: #### P OCGLUC #### [facility] [address] [address] [address] Jag Waldrop POINT OF CARE GLUCOSEon 09-14 Glucose [Mass/Vol] 156 mg/dL Critically high 74-106 [facility] Comment on above: Performed By: #### P OCGLUC #### [facility] [address] [address] [address] Jag Waldrop Glucose [Mass/Vol] 304 mg/dL Critically high 74-106 [facility] Comment on above: Performed By: #### P OCGLUC #### [facility] [address] [address] [address] Jag Waldrop Glucose [Mass/Vol] 77 mg/dL Normal 74-106 [facility] Comment on above: Performed By: #### E RUR #### [facility] [address] [address] [address] Jag Waldrop Glucose [Mass/Vol] 136 mg/dL Critically high 74-106 [facility] Comment on above: Performed By: #### E RUR #### [facility] [address] [address] [address] Jag Waldrop Glucose [Mass/Vol] 73 mg/dL Critically low 74-106 [facility] Comment on above: Performed By: #### E RUR #### [facility] [address] [address] [address] Jag Waldrop PROF CHEM 8 (BAS METB)on Anion gap [Moles/Vol] 15.5 mmol/L Normal [facility] Comment on above: Performed By: #### P OCGLUC #### [facility] [address] [place] [address] Dr. Jag Waldrop Calcium [Mass/Vol] 8.3 mg/dL Critically low 8.5-10.1 [facility] Comment on above: Performed By: #### P OCGLUC #### [facility] [address] [place] [address] Dr. Jag Waldrop Chloride [Moles/Vol] 108 mmol/L Critically high 98-107 [facility] Comment on above: Performed By: #### P OCGLUC #### [facility] [address] [place] [address] Dr. Jag Waldrop CO2 [Moles/Vol] 18.9 mmol/L Critically low 21.0-32.0 [facility] Comment on above: Performed By: #### P OCGLUC #### [facility] [address] [place] [address] Dr. Jag Waldrop Creatinine [Mass/Vol] 1.43 mg/dL Critically high 0.55-1.02 [facility] Comment on above: Performed By: #### P OCGLUC #### [facility] [address] [place] [address] Dr. Jag Waldrop EGFR-AF [place] 47 mL/min/1.73m2 Critically low >=60 [facility] Comment on above: Performed By: #### P OCGLUC #### [facility] [address] [address] [address] Jag Waldrop EGFR-NON AF [place] CITIZ[place] 39 mL/min/1.73m2 Critically low >=60 [facility] Comment on above: Performed By: #### P OCGLUC #### [facility] [address] [address] [address] Jag Waldrop Glucose [Mass/Vol] 269 mg/dL Critically high 74-106 [facility] Comment on above: Performed By: #### P OCGLUC #### [facility] [address] [address] [address] Jag Waldrop Potassium [Moles/Vol] 5.4 mmol/L Critically high 3.5-5.1 [facility] Comment on above: Performed By: #### P OCGLUC #### [facility] [address] [address] [address] Jag Waldrop Sodium [Moles/Vol] 137 mmol/L Normal 136-145 [facility] Comment on above: Performed By: #### P OCGLUC #### [facility] [address] [place] [address] Dr. Jag Waldrop Urea nitrogen [Mass/Vol] 40.0 mg/dL Critically high 7.0-18.0 [facility] Comment on above: Performed By: #### P OCGLUC #### [facility] [address] [address] [address] Jag Waldrop Urea nitrogen/Creatinine [Mass ratio] 28.0 mg/mg Normal [facility] Comment on above: Performed By: #### P OCGLUC #### [facility] [address] [address] [address] Jag Waldrop Anion gap [Moles/Vol] 14.0 mmol/L Normal [facility] Comment on above: Performed By: #### E RUR #### [facility] [address] [address] [address] Jag Waldrop Calcium [Mass/Vol] 8.9 mg/dL Normal 8.5-10.1 [facility] Comment on above: Performed By: #### E RUR #### [facility] [address] [place] [address] Dr. Jag Waldrop Chloride [Moles/Vol] 110 mmol/L Critically high 98-107 [facility] Comment on above: Performed By: #### E RUR #### [facility] [address] [place] [address] Dr. Jag Waldrop CO2 [Moles/Vol] 21.1 mmol/L Normal 21.0-32.0 [facility] Comment on above: Performed By: #### E RUR #### [facility] [address] [place] [address] Dr. Jag Waldrop Creatinine [Mass/Vol] 1.32 mg/dL Critically high 0.55-1.02 [facility] Comment on above: Performed By: #### E RUR #### [facility] [address] [place] [address] Dr. Jag Waldrop EGFR-AF [place] 52 mL/min/1.73m2 Critically low >=60 [facility] Comment on above: Performed By: #### E RUR #### [facility] [address] [place] [address] Dr. Jag Waldrop EGFR-NON AF [place] 43 mL/min/1.73m2 Critically low >=60 [facility] Comment on above: Performed By: #### E RUR #### [facility] [address] [place] [address] Dr. Jag Waldrop Glucose [Mass/Vol] 79 mg/dL Normal 74-106 [facility] Comment on above: Performed By: #### E RUR #### [facility] [address] [place] [address] Dr. Jag Waldrop Potassium [Moles/Vol] 6.1 mmol/L Critically high 3.5-5.1 [facility] Comment on above: Result Comment: Test Repeated. Critical Value Verified Performed By: #### E RUR #### [facility] [address] [place] [address] Dr. Jag Waldrop Sodium [Moles/Vol] 140 mmol/L Normal 136-145 [facility] Comment on above: Performed By: #### E RUR #### [facility] [address] [address] [address] Jag Waldrop Urea nitrogen [Mass/Vol] 45.0 mg/dL Critically high 7.0-18.0 [facility] Comment on above: Performed By: #### E RUR #### [facility] [address] [address] [address] Jag Waldrop Urea nitrogen/Creatinine [Mass ratio] 34.1 mg/mg Normal [facility] Comment on above: Performed By: #### E RUR #### [facility] [address] [address] [address] Jag Waldrop BASIC METABOLIC PANELon 08-14 Calcium [Mass/Vol] 8.9 mg/dL Normal 8.6-10.3 [facility] Comment on above: Order Comment: No: D o not add to previous draw Performed By: #### 5 610, 77076 #### [facility] [address] [place] [address], [place] Chloride [Moles/Vol] 105 mmol/L Normal 98-107 [facility] Comment on above: Order Comment: No: D o not add to previous draw Performed By: #### 5 610, 35701 #### [facility] [address] [place] [address], [place] CO2 [Moles/Vol] 26 mmol/L Normal 21-31 [facility] Comment on above: Order Comment: No: D o not add to previous draw Performed By: #### 5 6101, 61758 #### [facility] [address] [place] [address], [place] Creatinine [Mass/Vol] 0.99 mg/dL Normal 0.60-1.20 [facility] Comment on above: Order Comment: No: D o not add to previous draw Performed By: #### 5 610, 29226 #### [facility] [address] [place] [address], [place] GFR/1.73 sq M predicted among blacks MDRD (S/P/Bld) [Vol rate/Area] mL/min/{1.73_m2} Normal >60 [facility] Comment on above: Order Comment: No: D o not add to previous draw Performed By: #### 5 610, 03344 #### [facility] [address] [place] [address], [place] GFR/1.73 sq M predicted among non-blacks MDRD (S/P/Bld) [Vol rate/Area] mL/min/{1.73_m2} Normal >60 [facility] Comment on above: Order Comment: No: D o not add to previous draw Performed By: #### 5 610, 66484 #### [facility] [address] [place] [address], [place] Glucose [Mass/Vol] 145 mg/dL High 70-100 [facility] Comment on above: Order Comment: No: D o not add to previous draw Performed By: #### 5 610, 54881 #### [facility] [address] [place] [address], [place] Potassium [Moles/Vol] 3.7 mmol/L Normal 3.5-5.1 [facility] Comment on above: Order Comment: No: D o not add to previous draw Performed By: #### 5 610, 60350 #### [facility] [address] [place] [address], [place] Sodium [Moles/Vol] 139 mmol/L Normal 136-145 [facility] Comment on above: Order Comment: No: D o not add to previous draw Performed By: #### 5 610, 86484 #### [facility] [address] [place] [address], [place] Urea nitrogen [Mass/Vol] 26 mg/dL High 7-25 [facility] Comment on above: Order Comment: No: D o not add to previous draw Performed By: #### 5 610, 13034 #### [facility] [address] [facility] [place] [address], [facility] CBC W/DIFFon 08-25-2018 ABS BASOPHILS 0.0 10*3/uL Normal 0.0-0.2 [facility] Comment on above: Order Comment: No: D o not add to previous draw Performed By: #### 5 610, 40486 #### [facility] [address] [place] [address], [facility] ABS IMM GRANS 0.0 10*3/uL Normal 0.0-0.2 [facility] Comment on above: Order Comment: No: D o not add to previous draw Performed By: #### 5 610, 76517 #### [facility] [address] [facility] [place] [address], [facility] ABS NEUTROPHILS 2.3 10*3/uL Normal 1.6-7.6 [facility] Comment on above: Order Comment: No: D o not add to previous draw Performed By: #### 5 610, 10869 #### [facility] [address] [facility] [place] [address], [facility] Basophils/100 WBC (Bld) 0.3 % Normal 0.0-1.0 [facility] Comment on above: Order Comment: No: D o not add to previous draw Performed By: #### 5 610, 19314 #### [facility] [address] [facility] [place] [address], [facility] Eosinophils (Bld) [#/Vol] 0.0 10*3/uL Normal 0.0-0.5 [facility] Comment on above: Order Comment: No: D o not add to previous draw Performed By: #### 5 610, 69009 #### [facility] [address] [place] [address], [facility] Eosinophils/100 WBC (Bld) 0.0 % Normal 0.0-6.0 [facility] Comment on above: Order Comment: No: D o not add to previous draw Performed By: #### 5 6100, 92586 #### [facility] [address] [place] [address], [facility] Erythrocyte distribution width (RBC) [Ratio] 13.3 % Normal 11.5-15.0 [facility] Comment on above: Order Comment: No: D o not add to previous draw Performed By: #### 5 6100, 48373 #### [facility] [address] [place] [id number], [facility] Hematocrit (Bld) [Volume fraction] 37.7 % Normal 36.0-45.0 [facility] Comment on above: Order Comment: No: D o not add to previous draw Performed By: #### 5 6100, 86266 #### [facility] [address] [place] [id number], [facility] Hemoglobin (Bld) [Mass/Vol] 12.1 g/dL Normal 12.0-15.0 [facility] Comment on above: Order Comment: No: D o not add to previous draw Performed By: #### 5 6100, 30480 #### [facility] [address] [place] [id number], [facility] IMMATURE GRANS 0.2 % Normal 0.0-1.0 [facility] Comment on above: Order Comment: No: D o not add to previous draw Performed By: #### 5 6100, 42200 #### [facility] [address] [place] [id number], [place] Lymphocytes (Bld) [#/Vol] 3.0 10*3/uL Normal 1.2-4.0 [facility] Comment on above: Order Comment: No: D o not add to previous draw Performed By: #### 5 6100, 80722 #### [facility] [address] [place] [id number], [place] Lymphocytes/100 WBC (Bld) 52.0 % High 20.0-45.0 [facility] Comment on above: Order Comment: No: D o not add to previous draw Performed By: #### 5 6100, 60380 #### [facility] [address] [place] [address], [facility] MCH (RBC) [Entitic mass] 28.7 pg Normal 27.0-33.0 [facility] Comment on above: Order Comment: No: D o not add to previous draw Performed By: #### 5 6100, 89550 #### [facility] [address] [place] [address], [facility] MCHC (RBC) [Mass/Vol] 32.1 g/dL Normal 32.0-35.0 [facility] Comment on above: Order Comment: No: D o not add to previous draw Performed By: #### 5 6100, 56796 #### [facility] [address] MCV (RBC) [Entitic vol] 89.3 fL Normal 82.0-98.0 [facility] Comment on above: Order Comment: No: D o not add to previous draw Performed By: #### 5 6100, 20957 #### [facility] [address] [place] [address], [facility] Monocytes (Bld) [#/Vol] 0.5 10*3/uL Normal 0.1-1.0 [facility] Comment on above: Order Comment: No: D o not add to previous draw Performed By: #### 5 6100, 84085 #### [facility] [address] [place] [address], [facility] MONOS 7.9 % Normal 5.0-12.0 [facility] Comment on above: Order Comment: No: D o not add to previous draw Performed By: #### 5 6100, 67408 #### [facility] [address] [place] [address], [facility] Neutrophils/100 WBC (Bld) 39.6 % Low 40.0-72.0 [facility] Comment on above: Order Comment: No: D o not add to previous draw Performed By: #### 5 610, 70034 #### [facility] [address] [place] [address], [place] Nucleated RBC/100 WBC (Bld) [Ratio] 0 % Normal 0-0 [facility] Comment on above: Order Comment: No: D o not add to previous draw Performed By: #### 5 6100, 72674 #### [facility] [address] [place] [id number], [place] PLAT CNT 236 10*3/uL Normal 150-400 [facility] Comment on above: Order Comment: No: D o not add to previous draw Performed By: #### 5 6100, 00156 #### [facility] [address] [place] [id number], [facility] RBC (Bld) [#/Vol] 4.22 10*6/uL Normal 3.80-5.00 [facility] Comment on above: Order Comment: No: D o not add to previous draw Performed By: #### 5 610, 62735 #### [facility] [address] [place] [address], [place] WBC (Bld) [#/Vol] 5.85 10*3/uL Normal 4.00-10.60 [facility] Comment on above: Order Comment: No: D o not add to previous draw Performed By: #### 5 610, 97578 #### [facility] [address] [place] [address], [place] POC GLUCOSE LABon 08-25-2018 Glucose [Mass/Vol] 180 mg/dL High 70-100 [facility] Comment on above: Performed By: #### 5 610, 28085 #### [facility] [address] [place] [address], [facility] Glucose [Mass/Vol] 129 mg/dL High 70-100 [facility] Comment on above: Performed By: #### 5 6101, 63878 #### [facility] [address] [place] [address], [facility] Glucose [Mass/Vol] 132 mg/dL High 70-100 [facility] Comment on above: Performed By: #### 5 0608 #### [facility] [address] [place] [address], [facility] UFH HEPARIN ASSAYon 08-26-19 19 UNFRACTIONATED HEPARIN <0.10 Critically low 0.30-0.70 [facility] Comment on above: Result Comment: [place] roxaban and Apixaban will interfere with the anti Xa assay used to monitor UFH and LMWH. RESULTS CHECKED AND CALLED. ACCURATELY READ BACK BY JANENE ZAMARRIPA RN AT 0554 Performed By: #### 5 6101, 97532 #### [facility] [address] [facility] [place] [address], [facility] BASIC METABOLIC PANELon 05- Calcium [Mass/Vol] 8.5 mg/dL Low 8.6-10.3 [facility] Comment on above: Order Comment: No: D o not add to previous draw Performed By: #### 5 0608 #### [facility] [address] [place] [address], [facility] Chloride [Moles/Vol] 104 mmol/L Normal 98-107 [facility] Comment on above: Order Comment: No: D o not add to previous draw Performed By: #### 5 0608 #### [facility] [address] [facility] [place] [id number], [facility] CO2 [Moles/Vol] 27 mmol/L Normal 21-31 [facility] Comment on above: Order Comment: No: D o not add to previous draw Performed By: #### 5 0608 #### [facility] [address] [place] [address], [facility] Creatinine [Mass/Vol] 1.13 mg/dL Normal 0.60-1.20 [facility] Comment on above: Order Comment: No: D o not add to previous draw Performed By: #### 5 0608 #### [facility] [address] [place] [address], [place] GFR/1.73 sq M predicted among blacks MDRD (S/P/Bld) [Vol rate/Area] mL/min/{1.73_m2} Normal >60 [facility] Comment on above: Order Comment: No: D o not add to previous draw Performed By: #### 5 0608 #### [facility] [address] [place] [address], [facility] GFR/1.73 sq M predicted among non-blacks MDRD (S/P/Bld) [Vol rate/Area] 52 ml/min/1.73sq m Abnormal >60 [facility] Comment on above: Order Comment: No: D o not add to previous draw Performed By: #### 5 0608 #### [facility] [address] [place] [address], [place] Glucose [Mass/Vol] 131 mg/dL High 70-100 [facility] Comment on above: Order Comment: No: D o not add to previous draw Performed By: #### 5 0608 #### [facility] [address] [place] [address], [place] Potassium [Moles/Vol] 3.9 mmol/L Normal 3.5-5.1 [facility] Comment on above: Order Comment: No: D o not add to previous draw Performed By: #### 5 0608 #### [facility] [address] [place] [address], [place] Sodium [Moles/Vol] 141 mmol/L Normal 136-145 [facility] Comment on above: Order Comment: No: D o not add to previous draw Performed By: #### 5 0608 #### [facility] [address] [place] [address], [facility] Urea nitrogen [Mass/Vol] 28 mg/dL High 7-25 [facility] Comment on above: Order Comment: No: D o not add to previous draw Performed By: #### 5 0608 #### [facility] [address] [place] [address], [facility] CBC COMPLETE BLOOD COUNTon - Erythrocyte distribution width (RBC) [Ratio] 13.5 % Normal 11.5-15.0 [facility] Comment on above: Order Comment: No: D o not add to previous draw Performed By: #### 5 0608 #### [facility] [address] [place] [address], [facility] Hematocrit (Bld) [Volume fraction] 37.1 % Normal 36.0-45.0 [facility] [facility] Comment on above: Order Comment: No: D o not add to previous draw Performed By: #### 5 [id number] #### [facility] [address] [place] [address], [facility] Hemoglobin (Bld) [Mass/Vol] 12.2 g/dL Normal 12.0-15.0 [facility] Comment on above: Order Comment: No: D o not add to previous draw Performed By: #### 5 [id number] #### [facility] [address] [place] [address], [facility] MCH (RBC) [Entitic mass] 28.8 pg Normal 27.0-33.0 [facility] Comment on above: Order Comment: No: D o not add to previous draw Performed By: #### 5 [id number] #### [facility] [address] [place] [id number], [facility] MCHC (RBC) [Mass/Vol] 32.9 g/dL Normal 32.0-35.0 [facility] Comment on above: Order Comment: No: D o not add to previous draw Performed By: #### 5 [id number] #### [facility] [address] [place] [address], [facility] MCV (RBC) [Entitic vol] 87.7 fL Normal 82.0-98.0 [facility] Comment on above: Order Comment: No: D o not add to previous draw Performed By: #### 5 [id number] #### [facility] [address] [facility] [place] [place] [id number], [facility] Nucleated RBC/100 WBC (Bld) [Ratio] 0 % Normal 0-0 [facility] Comment on above: Order Comment: No: D o not add to previous draw Performed By: #### 5 [id number] #### [facility] [address] [facility] [place] [address], [facility] PLAT CNT 251 10*3/uL Normal 150-400 [facility] Comment on above: Order Comment: No: D o not add to previous draw Performed By: #### 5 [id number] #### [facility] [address] [facility] [place] [address], [facility] RBC (Bld) [#/Vol] 4.23 10*6/uL Normal 3.80-5.00 [facility] Comment on above: Order Comment: No: D o not add to previous draw Performed By: #### 5 [id number] #### [facility] [address] [facility] [place] [address], [facility] WBC (Bld) [#/Vol] 8.42 10*3/uL Normal 4.00-10.60 [facility] Comment on above: Order Comment: No: D o not add to previous draw Performed By: #### 5 [id number] #### [facility] [address] [facility] [place] [address], [facility] Cardiovascular Lab Reporton 08-24-2018 Cardiovascular Lab Report [facility] Patient Name: Sahra [facility] Amanda MR #: [id number] Department of Physician: Marshall Torres M.D. Division of Service Date: 08/23/2018 Cardiology Birthdate: 1970 Adult Cardiovascular Room #: 3AB [id number] [facility] [address] [place], [place] [address] Cardiovascular Laboratory Report FINAL IMPRESSION: 1. Mild [...] 5. Follow up with me in the [facility] post discharge. 6. Further recommendations deferred [...] the left radial artery was obtained. A 6-Maltese Glidesheath was inserted without difficulty. Bilateral selective [...] 30% stenosis adjacent to a prominent septal director immunology. There are luminal irregularities throughout the remainder [...] Godoy M.D. Date Trans: 08/24/2018 06:37 A/yadira [id number] cc: Geovanni Brunner D.O. [address] [facility] [id number] Normal [facility] HIP RIGHT 1 OR 2 VWS WITH PE LVISon 08-24-2018 HIP RIGHT 1 OR 2 VWS WITH PELVIS [facility] Department of Radiology [address] [place] [address] Patient Name: SHERLY HUMPHREYS : 1970 Sex: F Age: Race: White Pt. Location: [address] [place] [address] Patient Status: D Ordered Date: 08/24/2018 12:30:00 [...] findings. Electronically signed by:Kristy Jones. Transcribed by: [email or web address], User Resident: DL [email or web address] Electronically Signed by: KRISTY JONES @ 08/25/2018 08:05 PM I personally read this/these film(s) with this resident Normal [facility] Comment on above: Order Comment: No: D o not add to previous draw POC GLUCOSE LABon 08-24-2018 Glucose [Mass/Vol] 125 mg/dL High 70-100 [facility] Comment on above: Performed By: #### 5 [id number] #### [facility] [address] [place] [address], [place] Glucose [Mass/Vol] 150 mg/dL High 70-100 [facility] Comment on above: Performed By: #### 5 [id number] #### [facility] [address] Glucose [Mass/Vol] 119 mg/dL High 70-100 [facility] Comment on above: Performed By: #### 5 [id number] #### [facility] [address] [facility]. [address] UFH HEPARIN ASSAYon 08-25-19 19 UNFRACTIONATED HEPARIN <0.10 Critically low 0.30-0.70 [facility] Comment on above: Result Comment: Highland roxaban and Apixaban will interfere with the anti Xa assay used to monitor UFH and LMWH. RESULTS CHECKED AND CALLED. ACCURATELY READ BACK BY JANENE ZAMARRIPA RN AT 0732 Performed By: #### 5 [id number] #### [facility] [address] APTTon 08-23-2018 aPTT Coag (Bld) [Time] 38.8 s High 25.0-35.0 Th [facility] Comment on above: Order Comment: No: [...] THIS PURPOSE. Performed By: #### 5 [id number], [id number] #### [facility] [address] [facility]. [address] CBC COMPLETE BLOOD COUNTon 0 08-23-2018 Erythrocyte distribution width (RBC) [Ratio] 13.3 % Normal 11.5-15.0 [facility] Comment on above: Order Comment: No: D o not add to previous draw Performed By: #### 5 [id number] #### [facility] [address] [facility]. [address] Hematocrit (Bld) [Volume fraction] 41.4 % Normal 36.0-45.0 [facility] Comment on above: Order Comment: No: D o not add to previous draw Performed By: #### 5 [id number] #### [facility] [address] [place] [address], [facility] Hemoglobin (Bld) [Mass/Vol] 13.8 g/dL Normal 12.0-15.0 [facility] Comment on above: Order Comment: No: D o not add to previous draw Performed By: #### 5 [id number] #### [facility] [address] [place] [address], [facility] MCH (RBC) [Entitic mass] 29.0 pg Normal 27.0-33.0 [facility] Comment on above: Order Comment: No: D o not add to previous draw Performed By: #### 5 [id number] #### [facility] [address] [place] [address], [facility] MCHC (RBC) [Mass/Vol] 33.3 g/dL Normal 32.0-35.0 [facility] Comment on above: Order Comment: No: D o not add to previous draw Performed By: #### 5 [id number] #### [facility] [address] [facility] [place] [address], [facility] MCV (RBC) [Entitic vol] 87.0 fL Normal 82.0-98.0 [facility] Comment on above: Order Comment: No: D o not add to previous draw Performed By: #### 5 [id number] #### [facility] [address] [facility] [place] [address], [facility] Nucleated RBC/100 WBC (Bld) [Ratio] 0 % Normal 0-0 [facility] Comment on above: Order Comment: No: D o not add to previous draw Performed By: #### 5 [id number] #### [facility] [address] [facility] [place] [address], [facility] PLAT CNT 293 10*3/uL Normal 150-400 [facility] Comment on above: Order Comment: No: D o not add to previous draw Performed By: #### 5 [id number] #### [facility] [address] [place] [address], [facility] RBC (Bld) [#/Vol] 4.76 10*6/uL Normal 3.80-5.00 [facility] Comment on above: Order Comment: No: D o not add to previous draw Performed By: #### 5 [id number] #### [facility] [address] [place] [address], [facility] WBC (Bld) [#/Vol] 10.48 10*3/uL Normal 4.00-10.60 [facility] Comment on above: Order Comment: No: D o not add to previous draw Performed By: #### 5 [id number] #### [facility] [address] [place] [address], [facility] History and Physicalon 08-23 History and Physical MR#: [id number] [facility] Pt. Name: Sherly Humphreys Admitted: 08/23/2018 Date of : 1970 Attending Physician: Nini Valente MD Room #: 3AB [id number] Discharge Date: HISTORY AND PHYSICAL CHIEF COMPLAINT: [...] she went to the emergency department in [facility]. Initial evaluation included troponin and EKG, which were negative. The patient was started on nitroglycerin patch. She experienced some relief after starting the nitroglycerin patch. Her pain went down from 8 to 6/10. Given her significant cardiac history, the patient was transferred to [facility] for further evaluation. The patient reports [...] with no ST-T wave changes. Troponin from [facility] was 0.01. Pending troponin in our facility. [...] A/Nini Valente MD Date Trans: 08/23/2018 06:27 A/yadira [id number] Normal [facility] POC GLUCOSE LABon 08-23-2018 Glucose [Mass/Vol] 101 mg/dL High 70-100 [facility] Comment on above: Performed By: #### 5 [id number] #### [facility] [address] [facility] [place] [address], [facility] Glucose [Mass/Vol] 96 mg/dL Normal 70-100 [facility] Comment on above: Performed By: #### 5 [id number] #### [facility] [address] [facility] [place] [address], [place] Glucose [Mass/Vol] 134 mg/dL High 70-100 [facility] Comment on above: Performed By: #### 8 [id number] #### [facility] [address] [facility] [place] [address], [place] Glucose [Mass/Vol] 164 mg/dL High 70-100 [facility] Comment on above: Performed By: #### 8 5499 #### [facility] [address] [place] [address], [place] PROTHROMBIN TIMEon 9 INR Coag (PPP) [Relative time] 1.06 {INR} Normal 0.91-1.16 [facility] Comment on above: Order Comment: No: [...] CHEST 1995;[id number]. Performed By: #### 5 6101, [id number] #### [facility] [address] [place] [address], [facility] PT Coag (PPP) [Time] 13.8 s Normal 12.3-14.8 [facility] Comment on above: Order Comment: No: D o not add to previous draw Result Comment: ALL RESULTS MUST BE INTERPRETED WITH RESPECT TO BLOOD DRAWING ARTIFACT OR DILUTION ERROR OF ANTICOAGULANT AT THE TIME OF SAMPLING. Performed By: #### 5 [id number], [id number] #### [facility] [address] [place] [address], [facility] SERUM TESTon 08-23 TEST Negative Normal [facility] Comment on above: Order Comment: Yes: Add to Previous draw if able Performed By: #### 4 6473 #### [facility] [address] TROPONIN-Ion 08-23-2018 Troponin I.cardiac [Mass/Vol] 0.01 ng/mL Normal 0.00-0.04 [facility] Comment on above: Order Comment: No: D o not add to previous draw Result Comment: REFE RENCE RANGES: 0.00 - 0.04 ng/ml NORMAL 0.05 - 0.50 ng/ml INDETERMINATE > 0.50 ng/ml CONSISTENT WITH AN M.I. Performed By: #### 3 5200 #### [facility] [address] UFH HEPARIN ASSAYon 08-24-19 19 UNFRACTIONATED HEPARIN 0.42 IU/mL Normal 0.30-0.70 [facility] Comment on above: Order Comment: per beatriz schneider Result Comment: [place] roxaban and Apixaban will interfere with the anti Xa assay used to monitor UFH and LMWH. Performed By: #### 3 0477 #### [address] UNFRACTIONATED HEPARIN 0.29 IU/mL Low 0.30-0.70 Th e [facility] Comment on above: Result Comment: [place] roxaban and Apixaban will interfere with the anti Xa assay used to monitor UFH and LMWH. Performed By: #### 3 0477 #### [address] US GALLBLADDERon 08-23-2018 US GALLBLADDER [facility] Department of Radiology [address] [place] [id number] Patient Name: SHERLY HUMPHREYS : 1970 Sex: F Age: Race: White Pt. Location: [address] [place] [address] Patient Status: I Ordered Date: 08/23/2018 11:30:00 [...] gallbladder. Electronically signed by:Nathan Mauricio. Transcribed by: [email or web address], User Resident: Electronically Signed by: NATHAN MAURICIO @ 08/23/2018 03:33 PM Normal [facility] Comment on above: Order Comment: No: D o not add to previous draw Vital Signs Date Time Vital Sign Value Performing Clinician Facility 12-16-2024 08:50-0400 Body temperature 98.3 [degF] Janene Lew Work Phone: [facility] 12-16-2024 08:50-0400 Body weight 104.77 kg Janene Lew Work Phone: [facility] 12-16-2024 08:50-0400 Diastolic blood pressure 78 mm[Hg] Janene Lew Work Phone: [facility] 12-16-2024 08:50-0400 Heart rate 56 /min Janene Aichholz Work Phone: [facility] 12-16-2024 08:50-0400 Respiratory rate 20 /min Janene Aichholz Work Phone: [facility] 12-16-2024 08:50-0400 Systolic blood pressure 132 mm[Hg] Janene Aichholz Work Phone: [facility] 12-02-2024 09:25-0400 Body height 162.56 cm Joshua Doyleani DMD Work Phone: [facility] 12-02-2024 09:25-0400 Body mass index (BMI) [Ratio] 39.48 kg/m2 Joshua Kanani DMD Work Phone: [facility] 12-02-2024 09:25-0400 Body surface area Derived from formula 2.17 m2 Joshua Kanani DMD Work Phone: [facility] 12-02-2024 09:25-0400 Body temperature 97.7 [degF] Joshua Kanani DMD Work Phone: [facility] 12-02-2024 09:25-0400 Body weight 104.33 kg Joshua Kanani DMD Work Phone: [facility] 12-02-2024 09:25-0400 Diastolic blood pressure 84 mm[Hg] Joshua Kanani DMD Work Phone: [facility] 12-02-2024 09:25-0400 Heart rate 53 /min Joshua Kanani DMD Work Phone: [facility] 12-02-2024 09:25-0400 Systolic blood pressure 148 mm[Hg] Joshua Kanani DMD Work Phone: [facility] 11-26-2024 09:39-0400 Body height 162.56 cm Janene Aichholz Work Phone: [facility] 11-26-2024 09:39-0400 Body mass index (BMI) [Ratio] 39.8 kg/m2 Janene Aichholz Work Phone: [facility] 11-26-2024 09:39-0400 Body weight 105.23 kg Janene Aichholz Work Phone: [facility] 11-26-2024 09:39-0400 Diastolic blood pressure 75 mm[Hg] Janene Aichholz Work Phone: [facility] 11-26-2024 09:39-0400 Heart rate 61 /min Janene Aichholz Work Phone: [facility] 11-26-2024 09:39-0400 Respiratory rate 16 /min Janene Aichholz Work Phone: [facility] 11-26-2024 09:39-0400 SaO2% (BldA) [Mass fraction] 98 % Janene Aichholz Work Phone: [facility] 11-26-2024 09:39-0400 Systolic blood pressure 118 mm[Hg] Janene Aichholz Work Phone: [facility] 11-03-2024 09:50-0400 Body height 170.2 cm Marya Petznick DO Work Phone: [facility] 11-03-2024 09:50-0400 Body mass index (BMI) [Ratio] 36.65 kg/m2 Marya Petznick DO Work Phone: [facility] 11-03-2024 09:50-0400 Body temperature 98.01 [degF] Marya Petznick DO Work Phone: [facility] 11-03-2024 09:50-0400 Body weight 106.14 kg Marya Petznick DO Work Phone: [facility] 11-03-2024 09:50-0400 Diastolic blood pressure 78 mm[Hg] Marya Petznick DO Work Phone: [facility] 11-03-2024 09:50-0400 Heart rate 56 /min Marya Petznick DO Work Phone: [facility] 11-03-2024 09:50-0400 SaO2% (BldA) [Mass fraction] 96 % Marya Petznick DO Work Phone: [facility] 11-03-2024 09:50-0400 Systolic blood pressure 124 mm[Hg] Marya Petznick DO Work Phone: [facility] 09-03-2024 09:40-0400 Body mass index (BMI) [Ratio] 37.59 kg/m2 Janene Emiz [employer] Work Phone: [facility] 09-03-2024 09:40-0400 Body temperature 98.49 [degF] Janene Emiz [employer] Work Phone: [facility] 09-03-2024 09:40-0400 Body weight 108.86 kg Janene Emiz [employer] Work Phone: [facility] 09-03-2024 09:40-0400 Diastolic blood pressure 72 mm[Hg] Janene Reddhholz [employer] Work Phone: [facility] 09-03-2024 09:40-0400 Heart rate 67 /min Janene Aiczehraz [employer] Work Phone: [facility] 09-03-2024 09:40-0400 Respiratory rate 22 /min Janene Reddhholz [employer] Work Phone: [facility] 09-03-2024 09:40-0400 SaO2% (BldA) [Mass fraction] 97 % Janene Emiz [employer] Work Phone: [facility] 09-03-2024 09:40-0400 Systolic blood pressure 102 mm[Hg] Janene Aichholz [employer] Work Phone: [facility] 06-16-2024 09:07-0500 Body height 170.2 cm Marya Petznick DO Work Phone: [facility] 06-16-2024 09:07-0500 Body mass index (BMI) [Ratio] 38.37 kg/m2 Marya Petznick DO Work Phone: [facility] 06-16-2024 09:07-0500 Body temperature 98.2 [degF] Marya Petznick DO Work Phone: [facility] 06-16-2024 09:07-0500 Body weight 111.13 kg Marya Petznick DO Work Phone: [facility] 06-16-2024 09:07-0500 Diastolic blood pressure 82 mm[Hg] Marya Petznick DO Work Phone: [facility] 06-16-2024 09:07-0500 Heart rate 61 /min Marya Petznick DO Work Phone: [facility] 06-16-2024 09:07-0500 SaO2% (BldA) [Mass fraction] 97 % Marya Petznick DO Work Phone: [facility] 06-16-2024 09:07-0500 Systolic blood pressure 136 mm[Hg] Marya Petznick DO Work Phone: [facility] 03-06-2024 09:28-0500 Body height 170.2 cm Janene Lew [employer] Work Phone: [facility] 03-06-2024 09:28-0500 Body mass index (BMI) [Ratio] 40.69 kg/m2 Janene Lew [employer] Work Phone: [facility] 03-06-2024 09:28-0500 Body temperature 98.49 [degF] Janene Lew [employer] Work Phone: [facility] 03-06-2024 09:28-0500 Body weight 117.84 kg Janene Lew [employer] Work Phone: [facility] 03-06-2024 09:28-0500 Diastolic blood pressure 84 mm[Hg] Janene Lew [employer] Work Phone: [facility] 03-06-2024 09:28-0500 Heart rate 60 /min Janene Lew [employer] Work Phone: [facility] 03-06-2024 09:28-0500 Respiratory rate 20 /min Janene Lew [employer] Work Phone: [facility] 03-06-2024 09:28-0500 SaO2% (BldA) [Mass fraction] 96 % Janene Lew [employer] Work Phone: [facility] 03-06-2024 09:28-0500 Systolic blood pressure 132 mm[Hg] Janene Lew [employer] Work Phone: [facility] 02-19-2024 09:23-0500 Body height 162.6 cm Marya Petznick DO Work Phone: [facility] 02-19-2024 09:23-0500 Body mass index (BMI) [Ratio] 46.86 kg/m2 Marya Petznick DO Work Phone: [facility] 02-19-2024 09:23-0500 Body temperature 96.8 [degF] Marya Petznick DO Work Phone: [facility] 02-19-2024 09:23-0500 Body weight 123.83 kg Marya Petznick DO Work Phone: [facility] 02-19-2024 09:23-0500 Diastolic blood pressure 82 mm[Hg] Marya Petznick DO Work Phone: [facility] 02-19-2024 09:23-0500 Heart rate 56 /min Marya Petznick DO Work Phone: [facility] 02-19-2024 09:23-0500 SaO2% (BldA) [Mass fraction] 97 % Marya Petznick DO Work Phone: [facility] 02-19-2024 09:23-0500 Systolic blood pressure 130 mm[Hg] Marya Petznick DO Work Phone: [facility] 12-05-2023 08:35-0400 Body height 162.6 cm Janene Reddhholz [employer] Work Phone: [facility] 12-05-2023 08:35-0400 Body mass index (BMI) [Ratio] 49.06 kg/m2 Janene Aichholz [employer] Work Phone: [facility] 12-05-2023 08:35-0400 Body temperature 98.71 [degF] Janene Aichholz [employer] Work Phone: [facility] 12-05-2023 08:35-0400 Body weight 129.64 kg Janene Aichholz [employer] Work Phone: [facility] 12-05-2023 08:35-0400 Diastolic blood pressure 88 mm[Hg] Janene Aichholz [employer] Work Phone: [facility] 12-05-2023 08:35-0400 Heart rate 66 /min Janene Aichholz [employer] Work Phone: [facility] 12-05-2023 08:35-0400 Respiratory rate 20 /min Janene Aichholz [employer] Work Phone: [facility] 12-05-2023 08:35-0400 SaO2% (BldA) [Mass fraction] 98 % Janene Aichholz [employer] Work Phone: [facility] 12-05-2023 08:35-0400 Systolic blood pressure 122 mm[Hg] Janene Aichholz [employer] Work Phone: [facility] 11-01-2023 11:00-0400 Diastolic blood pressure 83 mm[Hg] Janene Aichholz Work Phone: [facility] 11-01-2023 11:00-0400 Heart rate 52 /min Janene Aichholz Work Phone: [facility] 11-01-2023 11:00-0400 Respiratory rate 16 /min Janene Aichholz Work Phone: [facility] 11-01-2023 11:00-0400 SaO2% (BldA) [Mass fraction] 98 % Janene Aichholz Work Phone: [facility] 11-01-2023 11:00-0400 Systolic blood pressure 144 mm[Hg] Janene Aichholz Work Phone: [facility] 11-01-2023 10:30-0400 Inhaled oxygen flow rate 8 L/min Janene Aichholz Work Phone: [facility] 11-01-2023 07:28-0400 Body height 162.56 cm Janene Aichholz Work Phone: [facility] 11-01-2023 07:28-0400 Body temperature 97.9 [degF] Janene Aichholz Work Phone: [facility] 11-01-2023 07:28-0400 Body weight 129.72 kg Janene Aichholz Work Phone: [facility] 10-16-2023 13:05-0400 Body height 162.56 cm Janene Aichholz Work Phone: [facility] 10-16-2023 13:05-0400 Body mass index (BMI) [Ratio] 51.5 kg/m2 Janene Aichholz Work Phone: [facility] 10-16-2023 13:05-0400 Body temperature 97.3 [degF] Janene Aichholz Work Phone: [facility] 10-16-2023 13:05-0400 Body weight 136.3 kg Janene Aichholz Work Phone: [facility] 10-16-2023 13:05-0400 Diastolic blood pressure 76 mm[Hg] Janene Aichholz Work Phone: [facility] 10-16-2023 13:05-0400 Heart rate 69 /min Janene Aichholz Work Phone: [facility] 10-16-2023 13:05-0400 Respiratory rate 18 /min Janene Aichholz Work Phone: [facility] 10-16-2023 13:05-0400 SaO2% (BldA) [Mass fraction] 99 % Janene Aichholz Work Phone: [facility] 10-16-2023 13:05-0400 Systolic blood pressure 125 mm[Hg] Janene Aichholz Work Phone: [facility] 10-02-2023 08:00-0400 Body temperature 97.9 [degF] Janene Aichholz Work Phone: [facility] 10-02-2023 08:00-0400 Diastolic blood pressure 82 mm[Hg] Janene Aichholz Work Phone: [facility] 10-02-2023 08:00-0400 Heart rate 58 /min Janene Aichholz Work Phone: [facility] 10-02-2023 08:00-0400 Respiratory rate 16 /min Jaenne Aichholz Work Phone: [facility] 10-02-2023 08:00-0400 SaO2% (BldA) [Mass fraction] 100 % Janene Aichholz Work Phone: [facility] 10-02-2023 08:00-0400 Systolic blood pressure 138 mm[Hg] Janene Aichholz Work Phone: [facility] 10-02-2023 05:02-0400 Body weight 139.8 kg Janene Aichholz Work Phone: [facility] 10-01-2023 05:34-0400 Body height 162.56 cm Janene Aichholz Work Phone: [facility] 08-15-2023 10:02-0400 Body height 162.56 cm Janene Aichholz Work Phone: [facility] 08-15-2023 10:02-0400 Body mass index (BMI) [Ratio] 54.6 kg/m2 Janene Aichholz Work Phone: [facility] 08-15-2023 10:02-0400 Body temperature 96.9 [degF] Janene Aichholz Work Phone: [facility] 08-15-2023 10:02-0400 Body weight 144.24 kg Janene Reddhholz Work Phone: [facility] 08-15-2023 10:02-0400 Diastolic blood pressure 77 mm[Hg] Janene Aichholz Work Phone: [facility] 08-15-2023 10:02-0400 Heart rate 59 /min Janene Reddhholz Work Phone: [facility] 08-15-2023 10:02-0400 Respiratory rate 18 /min Janene Reddhholz Work Phone: [facility] 08-15-2023 10:02-0400 SaO2% (BldA) [Mass fraction] 98 % Janene Reddhholz Work Phone: [facility] 08-15-2023 10:02-0400 Systolic blood pressure 130 mm[Hg] Janene Karenholz Work Phone: [facility] 08-14-2022 10:15-0400 Body height 162.56 cm Ivan Sams Other [employer] [facility] [employer] Other 08-14-2022 10:15-0400 Body mass index (BMI) [Ratio] 51.63 kg/m2 Ivan Sams Other [employer] [facility] [employer] Other 08-14-2022 10:15-0400 Body weight 136.44 kg Ivan Sams Other [employer] Other 08-14-2022 10:15-0400 Diastolic blood pressure 80 mm[Hg] Ivan Sams Other [employer] Other 08-14-2022 10:15-0400 SaO2% (BldA) [Mass fraction] 99 % Ivan Sams Other [employer] Other 08-14-2022 10:15-0400 Systolic blood pressure 140 mm[Hg] Ivan Sams Other [employer] Other 07-03-2022 12:30-0400 Body height 162.56 cm Ivan Sams Other [employer] Other 07-03-2022 12:30-0400 Body mass index (BMI) [Ratio] 51.39 kg/m2 Ivan Sams Other [employer] Other 07-03-2022 12:30-0400 Body weight 135.81 kg Ivan Sams Other [employer] Other 07-03-2022 12:30-0400 Diastolic blood pressure 84 mm[Hg] Ivan Sams Other [employer] Other 07-03-2022 12:30-0400 SaO2% (BldA) [Mass fraction] 99 % Ivan Sams Other [employer] Other 07-03-2022 12:30-0400 Systolic blood pressure 142 mm[Hg] Ivan Sams Other [employer] Other 06-24-2022 15:59-0500 Body height 162.56 cm Janene Aichholz Work Phone: [facility] 06-24-2022 15:59-0500 Body temperature 98.2 [degF] Janene Aichholz Work Phone: [facility] 06-24-2022 15:59-0500 Body weight 134.4 kg Janene Aichholz Work Phone: [facility] 06-24-2022 15:59-0500 Diastolic blood pressure 95 mm[Hg] Janene Aichholz Work Phone: [facility] 06-24-2022 15:59-0500 Heart rate 94 /min Janene Aichholz Work Phone: [facility] 06-24-2022 15:59-0500 Respiratory rate 20 /min Janene Aichholz Work Phone: [facility] 06-24-2022 15:59-0500 SaO2% (BldA) [Mass fraction] 96 % Janene Aichholz Work Phone: [facility] 06-24-2022 15:59-0500 Systolic blood pressure 187 mm[Hg] Janene Aichholz Work Phone: [facility] 05-12-2022 12:00-0500 Body height 162.56 cm Christian Hamilton Other [facility] [employer] Other 05-12-2022 12:00-0500 Body mass index (BMI) [Ratio] 51.94 kg/m2 Christian Hamilton Other [employer] Other 05-12-2022 12:00-0500 Body weight 137.26 kg Christian Hamilton Other [employer] Other 04-25-2022 12:20-0500 Body height 162.56 cm Aziz Bakhous Other [employer] Other 04-25-2022 12:20-0500 Body mass index (BMI) [Ratio] 51.94 kg/m2 Halle Webers Other [employer] Other 04-25-2022 12:20-0500 Body temperature 97.5 [degF] Halle Webers Other [employer] Other 04-25-2022 12:20-0500 Body weight 137.26 kg Halle Webers Other [employer] Other 04-25-2022 12:20-0500 Diastolic blood pressure 80 mm[Hg] Halle Webers Other [employer] Other 04-25-2022 12:20-0500 Respiratory rate 18 /min Halle Mac Other [employer] Other 04-25-2022 12:20-0500 SaO2% (BldA) [Mass fraction] 97 % Halle Mac Other [employer] Other 04-25-2022 12:20-0500 Systolic blood pressure 140 mm[Hg] Halle Webers Other [employer] Other 01-25-2022 16:15-0400 Body height 162.56 cm Emma Bolivar Other [employer] Other 01-25-2022 16:15-0400 Body mass index (BMI) [Ratio] 52.78 kg/m2 Emma Bolivar Other [employer] Other 01-25-2022 16:15-0400 Body temperature 97.1 [degF] Emma Bolivar Other [employer] Other 01-25-2022 16:15-0400 Body weight 139.48 kg Emma Bolivar Other [employer] Other 01-25-2022 16:15-0400 Diastolic blood pressure 70 mm[Hg] Emma Bolivar Other [employer] Other 01-25-2022 16:15-0400 SaO2% (BldA) [Mass fraction] 98 % Emma Bolivar Other [employer] Other 01-25-2022 16:15-0400 Systolic blood pressure 142 mm[Hg] Emma Bolivar Other [employer] Other 12-06-2021 12:20-0400 Body height 162.56 cm Christian Hamilton Other [employer] Other 12-06-2021 12:20-0400 Body mass index (BMI) [Ratio] 46.34 kg/m2 Christian Hamilton Other [employer] Other 12-06-2021 12:20-0400 Body weight 122.47 kg Christian Hamilton Other [employer] Other 11-10-2021 16:20-0400 Body height 162.56 cm Christian Hamilton Other [employer] Other 11-10-2021 16:20-0400 Body mass index (BMI) [Ratio] 46.34 kg/m2 Christian Hamilton Other [employer] Other 11-10-2021 16:20-0400 Body weight 122.47 kg Christian Hamilton Other [employer] Other 09-29-2021 14:00-0400 Body height 162.56 cm Christian Hamilton Other [employer] Other 09-29-2021 14:00-0400 Body mass index (BMI) [Ratio] 46 kg/m2 Christian Hamilton Other [employer] Other 09-29-2021 14:00-0400 Body weight 121.56 kg Christian Hamilton Other [employer] Other 08-30-2021 15:40-0400 Body height 162.56 cm Christian Hamilton Other [employer] Other 08-30-2021 15:40-0400 Body mass index (BMI) [Ratio] 46 kg/m2 Christian Hamilton Other [employer] Other 08-30-2021 15:40-0400 Body weight 121.56 kg Christian Hamilton Other [employer] Other Encounters Encounter Date Encounter Type Care Provider Facility Start: 12-30-2024 ambulatory [facility] Start: 12-16-2024 End: 12-16-2024 ambulatory Janene Lew Work Phone: [facility] Work Phone: Start: 12-16-2024 End: 12-16-2024 Patient encounter procedure Janene Lew [employer] [facility] Work Phone: Start: 12-12-2024 ambulatory [facility] Start: 12-12-2024 End: 12-12-[address] [facility] Start: 12-06-2024 End: 12-06-2024 Clinisync Result Encounter Generic External Data Provider [facility] External Department Unsolicited Start: 12-06-2024 End: 12-06-2024 Clinisync Result Encounter Generic External Data Provider [facility] External Department Unsolicited Start: 12-06-2024 End: 12-08-2024 Refill Janene Aichholz [employer] Work Phone: [facility] Comment on above: Restless leg syndrom e Start: 12-02-2024 End: 12-02-2024 periodic oral evaluation - established patient Joshua Petersen DMD Work Phone: [facility] Start: 12-02-2024 End: 12-02-2024 Encounter identifier Joshua Petersen DMD [facility] Phone[facility] Start: 11-26-2024 End: 11-26-2024 ambulatory Janene Moses Lew Work Phone: [facility] Work Phone: Start: 11-26-2024 End: 11-26-2024 Patient encounter procedure Halle Mac MD -[facility] Work Phone: Start: 11-21-2024 End: 11-23-2024 Refill Janene Aichholz [employer] Work Phone: [facility] Comment on above: Restless leg syndrom e Start: 11-18-2024 End: 11-18-2024 Patient encounter procedure Halle Mac MD -[facility] Work Phone: Start: 11-18-2024 End: 11-18-2024 ambulatory Janene J Louann Work Phone: [facility] Work Phone: Start: 11-17-2024 End: 11-17-2024 Clinisync Result Encounter Generic External Data Provider [facility] External Department Unsolicited Start: 11-17-2024 End: 11-17-2024 Clinisync Result Encounter Generic External Data Provider [facility] External Department Unsolicited Start: 11-11-2024 End: 11-12-2024 Refill Janene Lew [employer] Work Phone: [facility] Comment on above: Muscle spasm Start: 11-06-2024 Registered Recurring Maximo Alonso MD [facility] Start: 11-06-2024 ambulatory Janene Lew Facilit y:[facility] Start: 11-03-2024 End: 11-03-2024 Bamboo flowsheet Marya Andrade Petznick DO Work Phone: [facility] 230 Start: 11-03-2024 End: 11-03-2024 Bamboo flowsheet Marya Andrade Petznick DO Work Phone: [facility] 230 Start: 11-03-2024 End: 11-03-2024 Office outpatient visit 25 minutes Marya Castorena DO Work Phone: [facility] 230 Comment on above: Type 2 diabetes [...] (BMI) of 36.0 to 36.9 in adult ([facility]) Start: 11-03-2024 End: 11-03-2024 ambulatory MARYA CASTORENA Not Available Start: 10-16-2024 End: 10-16-[address] [facility] Start: 10-16-2024 End: 10-16-2024 Encounter for other preprocedural examination [facility] Start: 10-07-2024 End: 10-07-2024 Clinisync Result Encounter Generic External Data Provider [facility] External Department Unsolicited Start: 10-07-2024 End: 10-07-2024 Clinisync Result Encounter Generic External Data Provider [facility] External Department Unsolicited Start: 09-09-2024 End: 09-09-2024 Refill Janene Aichholz [employer] Work Phone: [facility] Comment on above: Restless leg syndrom e Start: 09-03-2024 End: 09-03-2024 Patient encounter status Janene Middletonrufus [employer] Work Phone: [facility] Start: 09-03-2024 End: 09-03-2024 Periodic preventive med est patient 40-64yrs Janene Jonesomkar [employer] Work Phone: [facility] Comment on [...] Start: 09-01-2024 End: 09-02-2024 Refill Janene Aichholz [employer] Work Phone: [facility] Comment on above: Primary hypertension (CMS/HCC) Muscle spasm Start: 08-28-2024 End: 08-28-2024 Clinisync Result Encounter Janene Karenholz [employer] Work Phone: [facility] External Department Unsolicited Start: 08-28-2024 End: 08-28-2024 Clinisync Result Encounter Janene Karenholz [employer] Work Phone: [facility] External Department Unsolicited Start: 08-12-2024 End: 08-14-2024 Refill Janene Aichholz [employer] Work Phone: [facility] Start: 07-25-2024 End: 07-25-2024 Refill Janene Louann [employer] Work Phone: [facility] Comment on above: Restless leg syndrom e Start: 07-15-2024 End: 07-15-2024 Orders Only Janeneamanda Lew [employer] Work Phone: [facility] Comment on above: Acute foot pain, lef t (Primary Dx); Acute left ankle pain Start: 06-16-2024 End: 06-16-2024 Bamboo flowsheet Marya Andrade Petheidiick DO Work Phone: [facility] 230 Start: 06-16-2024 End: 06-16-2024 Bamboo flowsheet Marya Andrade Petznick DO Work Phone: [facility] 230 Start: 06-16-2024 End: 06-16-2024 Office outpatient visit 25 minutes Marya Castorena DO Work Phone: [facility] 230 Comment on above: Class 2 severe obesi ty due to excess calories with serious comorbidity and body mass index (BMI) of 38.0 to 38.9 in adult ([facility]) (Primary Dx); Type 2 diabetes mellitus with other circulatory complications ([facility]); Type 2 diabetes mellitus with stage 3a chronic kidney disease, without long-term current use of insulin ([facility]) ([facility]) Start: 06-16-2024 End: 06-16-2024 ambulatory MARYA CASTORENA Not Available Start: 05-27-2024 End: 05-27-2024 Refill Janene Louann [employer] Work Phone: [facility] Comment on above: Muscle spasm Start: 03-20-2024 End: 03-21-2024 Refill Janene Louann [employer] Work Phone: [facility] Comment on above: Restless leg syndrom e Start: 03-11-2024 End: 03-11-2024 ambulatory [facility] Facility:[facility] Start: 03-06-2024 End: 03-06-2024 Bamboo flowsheet Janeneamanda Lew [employer] Work Phone: [facility] Start: 03-06-2024 End: 03-06-2024 Bamboo flowsheet Janene Lew [employer] Work Phone: [facility] Start: 03-06-2024 End: 03-06-2024 Office outpatient visit 25 minutes Janene Lew [employer] Work Phone: [facility] Comment on above: Primary hypertension (CMS/HCC) [...] pansinusitis Start: 03-06-2024 End: 03-06-2024 ambulatory JANENE LOUANN Not Available Start: 02-22-2024 End: 02-25-2024 Refill Janene Lew [employer] Work Phone: [facility] Comment on above: Muscle spasm Start: 02-19-2024 End: 02-19-2024 Office outpatient visit 25 minutes Marya Castorena DO Work Phone: [facility] 230 Comment on above: Type [...] Start: 01-14-2024 End: 01-14-2024 Refill Janene Aichholz [employer] Work Phone: [facility] Comment on above: Primary hypertension ([facility]) Start: 12-19-2023 End: 12-19-2023 Refill Janene Aichholz [employer] Work Phone: [facility] Comment on above: Type 2 diabetes chidi itus with stage 4 chronic kidney disease, without long-term current use of insulin ([facility]) (Primary Dx) Start: 12-18-2023 End: 12-18-2023 Clinisync Result Encounter Janene Aichholz [employer] Work Phone: [facility] External Department Unsolicited Start: 12-18-2023 End: 12-18-2023 Clinisync Result Encounter Janene Aichholz [employer] Work Phone: [facility] External Department Unsolicited Start: 12-18-2023 End: 12-18-2023 Refill Janene Aichholz [employer] Work Phone: [facility] Comment on above: Restless leg syndrom e Start: 12-18-2023 End: 12-18-2023 Refill Janene Aichholz [employer] Work Phone: [facility] Comment on above: Antibiotic-induced y east infection (Primary Dx) Start: 12-05-2023 End: 12-05-2023 Bamboo flowsheet Janene Aichholz [employer] Work Phone: [facility] Start: 12-05-2023 End: 12-05-2023 Bamboo flowsheet Janene Aichholz [employer] Work Phone: [facility] Start: 12-05-2023 End: 12-07-2023 Refill Janene Aichholz [employer] Work Phone: [facility] Comment on above: Muscle spasm Start: 12-05-2023 End: 12-05-2023 Office outpatient visit 25 minutes Janene Lew [employer] Work Phone: [facility] Comment on above: Left lower quadrant abdominal pain (Primary Dx); Morbid (severe) obesity due to excess calories (CMS/HCC); Body mass index (BMI) 45.0-49.9, adult (CMS/HCC); Restless leg syndrome; Stage 3b chronic kidney disease (HCC) (CMS/HCC) Start: 12-05-2023 End: 12-05-2023 ambulatory JANENE LEW Not Available Start: 12-03-2023 End: 12-03-2023 ambulatory Marcella Conway MD Facility:[facility] Start: 11-19-2023 End: 11-19-2023 ambulatory MARYA CASTORENA Not Available Start: 11-12-2023 End: 11-12-2023 ambulatory BAN CLEMENTE V Not Available Start: 11-01-2023 End: 11-01-2023 Admission to same day surgery center Janene Lew Work Phone: [facility] [place] Start: 11-01-2023 End: 11-01-2023 ambulatory Janene Lew Work Phone: [facility] Work Phone: Start: 10-29-2023 Registered Recurring Janene espitia Work Phone: [facility] Start: 10-16-2023 End: 10-16-2023 ambulatory Janene Lew Work Phone: [facility] Work Phone: Start: 10-16-2023 End: 10-16-2023 Patient encounter procedure Janene Lew Work Phone: [facility] Neph[facility] Work Phone: Start: 10-16-2023 Registered Recurring Janene espitia Work Phone: [facility] Start: 10-11-2023 End: 10-11-2023 ambulatory Janene Lew Work Phone: [facility] Work Phone: Start: 10-11-2023 End: 10-11-2023 Patient encounter procedure Janene Lew Work Phone: [facility] [place] Work Phone: Start: 10-01-2023 Non-patient / Non-visit Janeneamanda georgeangierufus Work Phone: [facility] Work Phone: Start: 10-01-2023 End: 10-02-2023 Evaluation and management of inpatient Janene Jonesomkar Work Phone: [facility] [place] [facility] Work Phone: Start: 09-24-2023 End: 09-24-2023 ambulatory Marcella Conway MD Facility:[facility] Start: 09-03-2023 Registered Recurring Janene Jones omkar Work Phone: [facility] Start: 08-15-2023 End: 08-15-2023 Patient encounter procedure Janene Jonesomkar Work Phone: [facility] Work Phone: Start: 08-10-2023 End: 08-10-2023 ambulatory Janene Lopes [employer] Work Phone: [facility] Work Phone: Start: 08-10-2023 End: 08-10-2023 Patient encounter procedure Janene Red[employer]itoomkar Work Phone: [facility] [place] Work Phone: Start: 07-09-2023 End: 07-09-2023 ambulatory Marcella Conway MD Facility: [facility] Start: 06-19-2023 End: 06-19-2023 Patient encounter procedure Janene Jonesangierufus Work Phone: [facility] [place] Work Phone: Start: 05-25-2023 End: 05-25-2023 ambulatory MARKEL HAQ Facility:[facility] Start: 05-17-2023 End: 05-17-2023 ambulatory Janene Lopes [employer] Work Phone: [facility] Work Phone: Start: 05-17-2023 End: 05-17-2023 Patient encounter procedure Janene Jonesangierufus Work Phone: [facility] [place] Work Phone: Start: 03-15-2023 Registered Recurring Janeneamanda Jones omkar Work Phone: [facility] Start: 02-19-2023 End: 02-19-2023 ambulatory Marcella Conway MD Facility: [place] Start: 01-01-2023 End: 01-01-2023 ambulatory Marcella Conway MD Facility:[facility] Start: 11-29-2022 End: 11-29-2022 ambulatory Halle Mac Other [employer] Other Start: 11-29-2022 Telephone encounter Halle Mac [facility] Start: 09-18-2022 End: 09-18-2022 ambulatory Ivan Sams Other [employer] Other Start: 09-18-2022 Telephone encounter Ivan Sams [facility] Start: 09-07-2022 End: 09-07-2022 ambulatory [employer] ASSEMBLER JANENE LEW Facility:[facility] Start: 08-14-2022 End: 08-14-2022 ambulatory Ivan Sams Other [employer] Other Start: 08-14-2022 Office outpatient vi sit 25 minutes Ivan Sams [facility] Start: 07-03-2022 End: 07-03-2022 ambulatory Ivan Sams Other [employer] Other Start: 07-03-2022 Office consultation new/estab patient 60 min Ivan Sams [facility] Start: 06-24-2022 End: 06-24-2022 Emergency department patient visit Janene Lew Work Phone: [facility] Work Phone: Start: 06-08-2022 End: 06-09-2022 ambulatory [employer] ASSEMBLER JANENE AICHHOLZ Facility:[facility] Start: 05-29-2022 End: 05-30-2022 ambulatory [employer] SECTIONS ASSEMBLER JANENE AICHHOLZ Facility:[facility] Start: 05-13-2022 ambulatory TRA[employer]ER SECTIONS ASSEMBLER JANENE LOUANN Facil ity:[facility] Start: 05-12-2022 End: 05-12-2022 ambulatory Christian Hamilton Other [employer] Other Start: 05-12-2022 Office outpatient vi sit 15 minutes Christian Hamilton [facility] Neuro[facility] Start: 04-25-2022 End: 04-25-2022 ambulatory Aziz Bakmichaels Other [employer] Other Start: 04-25-2022 Office outpatient ne w 30 minutes Aziz Bakhous [facility] [place] Start: 03-29-2022 End: 03-30-2022 ambulatory [employer]CTIONS ASSEMBLER JANENE AICHHOLZ Facility:[facility] Start: 03-23-2022 End: 03-24-2022 ambulatory TRA[employer]ER SECTIONS ASSEMBLER JANENE AICHHOLZ Facility:[facility] Start: 02-19-2022 End: 02-19-2022 ambulatory TRA[employer]ER SECTIONS ASSEMBLER JANENE AICHHOLZ Facility:[facility] Start: 02-16-2022 End: 02-16-[address] MYRIAM PERRIN . Facility:[facility] Start: 02-15-2022 ambulatory TRA[employer]ER SECTIONS ASSEMBLER JANENE AICHHOLZ Facil ity:[facility] Start: 01-25-2022 End: 01-25-2022 Patient encounter procedure Janene Lew Work Phone: [facility] Start: 01-25-2022 End: 01-25-2022 ambulatory Janene Lew Work Phone: [facility] Work Phone: Start: 01-25-2022 Office outpatient vi sit 25 minutes Emma Bolivar [facility] Start: 01-25-2022 End: 01-26-2022 ambulatory [employer] SECTIONS ASSEMBLER JANENE LOUANN Facility:[facility] Start: 01-23-2022 End: 01-24-2022 ambulatory TRA[employer]ER SECTIONS ASSEMBLER JANENE EMIZ Facility:[facility] Start: 01-12-2022 End: 01-13-2022 ambulatory TRA[employer]ER SECTIONS ASSEMBLER JANENE EMIZ Facility:[facility] Start: 12-21-2021 End: 12-22-2021 ambulatory [employer]ER SECTIONS ASSEMBLER JANENE KARENANGIERufus Facility:[facility] Start: 12-06-2021 End: 12-06-2021 ambulatory Christian Hamilton Other [employer] Other Start: 12-06-2021 Office outpatient vi sit 15 minutes Christian Hamilton [facility] Neuro[facility] Start: 11-30-2021 End: 11-30-2021 ambulatory TRAILER SECTIONS ASSEMBLER JANENE REDDHHOLZ Facility:[facility] Start: 11-28-2021 End: 11-29-2021 ambulatory TRAILER SECTIONS ASSEMBLER JANENE LOUANN Facility:[facility] Start: 11-14-2021 End: 11-14-2021 ambulatory Janeneamanda Lew Work Phone: [facility] Work Phone: Start: 11-14-2021 End: 11-14-2021 Discharged Recurring Janene Jonesangierufus Work Phone: [facility] [place] Start: 11-10-2021 End: 11-10-2021 ambulatory Christian Hamilton Other [employer] Other Start: 11-10-2021 Postop follow up vis it related to original px Christian Hamilton [facility] Start: 10-28-2021 End: 10-29-2021 ambulatory TRAILER [employer] ASSEMBLER JANENE LEW Facility:[facility] Start: 10-02-2021 End: 10-02-2021 ambulatory TRA[employer]ER [employer] ASSEMBLER JANENE LEW Facility:[facility] Start: 09-29-2021 End: 09-29-2021 ambulatory Christian Hamilton Other [employer] Other Start: 09-29-2021 Postop follow up vis it related to original px Christian Hamilton [facility] Start: 08-30-2021 End: 08-30-2021 ambulatory Christian Hamilton Other [employer] Other Start: 08-30-2021 Postop follow up vis it related to original px Christian Hamilton [facility] Start: 08-12-2021 Admission to [facility] Christian Hamilton [facility] Start: 08-12-2021 End: 08-12-2021 ambulatory Christian Hamilton Other [employer] Other Start: 08-23-2018 End: 08-25-2018 Evaluation and management of inpatient Peng Merino Facility:[facility] Procedures Date Procedure Procedure Detail Performing Clinician Start: 12-06-2024 ALL CBC WITH AUTO DIFF Generic External Data Provider Start: 12-02-2024 End: 12-02-2024 Anemia Joshua Petersen DMD Work Phone: Start: 12-02-2024 End: 12-02-2024 bitewings - four radiographic images Joshua Petersen DMD Work Phone: Start: 12-02-2024 End: 12-02-2024 Bypass of stomach Joshua Petersen DMD Work Phone: Start: 12-02-2024 End: 12-02-2024 Documentation of current medications Joshua Petersen DMD Work Phone: Start: 12-02-2024 End: 12-02-2024 extraction, erupted tooth or exposed root (elevation and/or forceps removal) Joshua Petersen DMD Work Phone: Start: 12-02-2024 End: 12-02-2024 intraoral - periapical each additional radiographic image Joshua Doyleoliverio DMD Work Phone: Start: 12-02-2024 End: 12-02-2024 intraoral - periapical first radiographic image Joshua Doyleoliverio FLORES Work Phone: Start: 12-02-2024 End: 12-02-2024 oral hygiene instructions Joshua Lu MD Work Phone: Start: 11-17-2024 NM ROZ PERF SPECT REST STR Generic External Data Provider Start: 11-03-2024 Hemoglobin glycosylated a1c Marya Castorena DO Work Phone: Start: 10-07-2024 XR CHEST 2V Generic Ex ternal Data Provider Start: 10-07-2024 ALL CBC WITH AUTO DIFF Generic External Data Provider Start: 10-07-2024 ECG 12-LEAD Generic Ex ternal Data Provider Start: 08-28-2024 Radex hip unilateral with pelvis 2-3 views Generic External Data Provider Start: 08-28-2024 ALL CBC WITH AUTO DIFF Janene Lew [employer] Work Phone: Start: 06-16-2024 Hemoglobin glycosylated a1c Marya Castorena DO Work Phone: Start: 02-19-2024 Hemoglobin glycosylated a1c Marya Castorena DO Work Phone: Start: 12-18-2023 ALL CBC WITH AUTO DIFF Janene eLw [employer] Work Phone: Start: 11-01-2023 End: 11-01-2023 Colonoscopy Janene Lew Work Phone: Start: 09-28-2023 Mammography Janene mcfarland [employer] Work Phone: Start: 09-11-2023 History of percutane ous transluminal coronary angioplasty History of PTCA Janene Lew [employer] Work Phone: Start: 05-17-2023 Urine culture Janene espitia Work Phone: Start: 08-23-2018 FLUOROSCOPY OF MULTI PLE CORONARY ARTERIES USING OTH CONTRAST TK GODOY Start: 05-18-2016 Microscopic observat ion [Identifier] in Cervix by Cyto stain Janene Lew [employer] Work Phone: History of percutane ous transluminal coronary angioplasty History of PTCA Janene Lew Work Phone: Plan of Treatment Date Care Activity Detail Author Start: 10-31-2033 Screening for malignant neoplasm of colon [facility] Start: 09-05-2025 Glaucoma screening Diabetes: Retinopathy Screening [facility] Start: 08-28-2025 Urine screening for protein Diabetes: Urine Protein Screening [facility] Start: 05-05-2025 End: 05-05-2025 Patient encounter procedure [facility] 230 Start: 03-19-2025 [facility] Work Phone: Start: 02-03-2025 Hemoglobin A1c measurement Diabetes: Hemoglobin A1C [facility] Start: 12-17-2024 [facility] Work Phone: Start: 12-16-2024 End: 12-16-2024 Patient encounter procedure 12/16/2024 8:30 AM EDT Office Visit [facility] [address] [place] [phone] Janene Lew, [employer] [address] [place] [phone] [facility] Start: 12-15-2024 Influenza vaccination Influenza Vaccine (#1) [facility] Start: 12-04-2024 End: 12-04-2024 Patient encounter procedure 12/04/2024 8:40 AM EDT Office Visit [facility] [address] [place] [phone] Janene Lew, [employer] [address] [place] [phone] [facility] Start: 12-02-2024 Dietary management education, guidance, and counseling Dietary management education, guidance, and counseling [facility] Start: 12-02-2024 End: 12-02-2024 [facility] Work Phone: Start: 11-03-2024 End: 11-03-2024 Patient encounter procedure [facility] 230 Comment on above: Arrived Start: 10-20-2024 End: 10-20-2024 Patient encounter procedure 10/20/2024 10:30 AM EDT Office Visit [facility] [address] [place] [address] Marya Castorena DO [address] [place] [address] [facility] 230 Start: 10-04-2024 End: 11-03-2025 MG Breast - bilateral Screening Bilateral screening mammogram Imaging Routine Encounter for screening mammogram for malignant neoplasm of breast Expected: 10/04/2024 (Approximate), Expires: 11/03/2025 [facility] Work Phone: Comment on above: Expected: 10/04/2024 (Approximate), Expi res: 11/03/2025 Start: 09-27-2024 Screening for malignant neoplasm of breast Mammogram [facility] Start: 09-16-2024 Hemoglobin A1c measurement Diabetes: Hemoglobin A1C [facility] Start: 09-03-2024 End: 09-03-2024 Patient encounter procedure 09/03/2024 9:40 AM EDT Office Visit [facility] [address] [place] [address] Janene Lew NP [address] [place] [phone] [facility] Start: 07-15-2024 End: 07-15-2025 XR Ankle - left 3 Views XR ankle 3+ views left Imaging Routine Acute left ankle pain Expected: 07/15/2024, Expires: 07/15/2025 [facility] Work Phone: Comment on above: Expected: 07/15/2024, Expires: Start: 07-15-2024 End: 07-15-2025 XR Foot - left 3 Views XR foot 3+ views left Imaging Routine Acute foot pain, left Expected: 07/15/2024, Expires: 07/15/2025 [facility] Comment on above: Expected: 07/15/2024, Expires: Start: 06-19-2024 End: 06-19-2024 Patient encounter procedure 06/19/2024 10:15 AM EST Office Visit [facility] [address] [place] [phone] Marya Castorena M, DO [address] [place] [address] [facility] 230 Start: 06-16-2024 End: 06-16-2024 Patient encounter procedure 06/16/2024 9:15 AM EST Office Visit [facility] [address] [place] [phone] Marya Castorena, DO [address] [place] [address] Arrived [facility] 230 Comment on above: Arrived Start: 05-21-2024 Hemoglobin A1c measurement Diabetes: Hemoglobin A1C [facility] Start: 05-10-2024 Urine screening for protein Diabetes: Urine Protein Screening [facility] Start: 03-06-2024 End: 03-06-2025 25-hydroxyvitamin D3 [Mass/volume] in Serum or Plasma Vitamin D 25 hydroxy Lab Routine Vitamin D deficiency Expected: 03/06/2024 (Approximate), Expires: 03/06/2025 [facility] Comment on above: Expected: 03/06/2024 (Approximate), Expi res: 03/06/2025 Start: 03-06-2024 End: 03-06-2025 CBC W Auto Differential panel - Blood CBC and differential Lab Routine Coronary arteriosclerosis (CMS/HCC) Stage 3b chronic kidney disease (HCC) (CMS/HCC) Expected: 03/06/2024 (Approximate), Expires: 03/06/2025 [facility] Work Phone: Comment on above: Expected: 03/06/2024 (Approximate), Expi res: 03/06/2025 Start: 03-06-2024 End: 03-06-2025 Cobalamin (Vitamin B12) [Mass/volume] in Serum or Plasma Vitamin B12 Lab Routine Vitamin B12 deficiency Expected: 03/06/2024 (Approximate), Expires: 03/06/2025 [facility] Comment on above: Expected: 03/06/2024 (Approximate), Expi [...] D deficiency Expected: 03/06/2024 (Approximate), Expires: 03/06/2025 [facility] Comment on above: Expected: 03/06/2024 (Approximate), Expi res: 03/06/2025 Start: 03-06-2024 End: 03-06-2025 Ferritin [Mass/volume] in Serum or Plasma Ferritin Lab Routine H/O bariatric surgery Expected: 03/06/2024 (Approximate), Expires: 03/06/2025 [facility] Comment on above: Expected: 03/06/2024 (Approximate), Expi res: 03/06/2025 Start: 03-06-2024 End: 03-06-2025 Iron and Iron binding capacity panel - Serum or Plasma Iron level Lab Routine H/O bariatric surgery Expected: 03/06/2024 (Approximate), Expires: 03/06/2025 [facility] Comment on above: Expected: 03/06/2024 (Approximate), Expi res: 03/06/2025 Start: 03-06-2024 End: 03-06-2025 Lipid 1996 panel - Serum or Plasma Lipid panel Lab Routine Coronary arteriosclerosis (CMS/HCC) Expected: 03/06/2024 (Approximate), Expires: 03/06/2025 [facility] Comment on above: Expected: 03/06/2024 (Approximate), Expi res: 03/06/2025 Start: 03-06-2024 End: 03-06-2025 Microalbumin/Creatinine panel in random Urine Microalbumin / creatinine, urine ratio Lab Routine Primary hypertension (CMS/HCC) Stage 3b chronic kidney disease (HCC) (CMS/HCC) Expected: 03/06/2024 (Approximate), Expires: 03/06/2025 [facility] Comment on above: Expected: 03/06/2024 (Approximate), Expi res: 03/06/2025 Start: 03-06-2024 End: 03-06-2025 Urinalysis complete panel - Urine Urinalysis with reflex microscopic (clean catch) Lab Routine Primary hypertension (CMS/HCC) Stage 3b chronic kidney disease (HCC) (CMS/HCC) Expected: 03/06/2024 (Approximate), Expires: 03/06/2025 [facility] Comment on above: Expected: 03/06/2024 (Approximate), Expi res: 03/06/2025 Start: 03-06-2024 End: 03-06-2024 Patient encounter procedure [facility] Comment on above: Spinal stenosis of lumbar [...] EST Office Visit [facility] [address] [place] [phone] Marya Castorena DO [address] [place] [address] [facility] 230 Start: 02-14-2024 Influenza vaccination Influenza Vaccine (#1) [facility] Comment on above: Postponed from 12/16/2023 (Patient Does Not Have Time) Start: 12-25-2023 Hemoglobin A1c measurement Diabetes: Hemoglobin A1C [facility] Start: 12-05-2023 End: 12-04-2024 Basic metabolic 1998 panel - Serum or Plasma Basic metabolic panel Lab Routine Left lower quadrant abdominal pain Expected: 12/05/2023 (Approximate), Expires: 12/04/2024 [facility] Comment on above: Expected: 12/05/2023 (Approximate), Expi res: 12/04/2024 Start: 12-05-2023 End: 12-04-2024 CBC W Auto Differential panel - Blood CBC and differential Lab Routine Left lower quadrant abdominal pain Expected: 12/05/2023 (Approximate), Expires: 12/04/2024 [facility] Comment on above: Expected: 12/05/2023 (Approximate), Expi res: 12/04/2024 Start: 12-05-2023 End: 12-04-2024 XR Abdomen Single view XR ABDOMEN 2 VIEW Imaging Routine Left lower quadrant abdominal pain Expected: 12/05/2023, Expires: 12/04/2024 [facility] Work Phone: Comment on above: Expected: 12/05/2023, Expires: Start: 12-05-2023 End: 12-05-2023 Patient encounter procedure 12/05/2023 8:40 AM EDT Office Visit [facility] [address] [place] [phone] Janene Lew, [employer] [address] [place] [phone] Morbid (severe) obesity due to excess calories (CMS/HCC); Body mass index (BMI) 45.0-49.9, adult (CMS/HCC) [facility] Comment on above: Morbid (severe) obesity due to excess ca lories (CMS/HCC); Body mass index (BMI) 45.0-49.9, adult ([facility]/HCC) Start: 11-01-2023 [facility] Start: 10-02-2023 [facility] Start: 10-01-2023 Referral to [facility] Start: 10-01-2023 Hospital admission [facility] Start: 05-17-2023 Bacteria identified in Urine by Culture [facility] Start: 05-18-2019 Screening for malignant neoplasm of cervix Pap Smear [facility] Start: 2000 Screening for malignant neoplasm of cervix HPV/Cotest [facility] Start: 1970 Screening for malignant neoplasm of colon [facility] Patient Education [facility] Work Phone: Patient referral [facility] Work Phone: Renal function 1999 panel - Serum or Plasma [facility] Renal function 1999 panel - Serum or Plasma [facility] Renal function 1999 panel - Serum or Plasma [facility] Immunizations Immunization Date Immunization Notes Care Provider Fa cility 01-24-2024 SARS-COV-2 (COVID-19 ) vaccine, mRNA, spike protein, LNP, PF, saravanan-sucrose, 30 mcg/0.3 mL Marya Petznick DO Work Phone: [facility] 01-24-2024 Seasonal, trivalent, recombinant, injectable influenza vaccine, preservative free Marya Petznick DO Work Phone: [facility] 01-24-2024 influenza virus vaccine, unspecified formulation Marya Petznick DO Work Phone: [facility] 02-09-2023 influenza, injectabl e, quadrivalent, preservative free Janene Lew [employer] Work Phone: [facility] 02-09-2023 influenza virus vaccine, unspecified formulation Janene Aichholz [employer] Work Phone: [facility] 07-03-2022 hepatitis A and hepatitis B vaccine Janene Aichholz [employer] Work Phone: [facility] 07-03-2022 zoster vaccine recombinant Janene Aichholz [employer] Work Phone: [facility] 01-20-2022 hepatitis A and hepatitis B vaccine Janene Aichholz [employer] Work Phone: [facility] 12-19-2021 hepatitis A and hepatitis B vaccine Janene Aichholz [employer] Work Phone: [facility] 12-19-2021 influenza, injectabl e, quadrivalent, preservative free Janene Aichholz [employer] Work Phone: [facility] 12-19-2021 tetanus toxoid, redu drew diphtheria toxoid, and acellular pertussis vaccine, adsorbed Janene Aichholz [employer] Work Phone: [facility] 12-19-2021 zoster vaccine recombinant Janene Aichholz [employer] Work Phone: [facility] 05-17-2021 COVID-19 mRNA, Comirnaty (Pfizer) Janene Aichholz Work Phone: [facility] 05-16-2021 Pfizer Purple Cap SARS-CoV-2 Vaccination Janene Aichholz [employer] Work Phone: [facility] 09-06-2020 COVID-19 mRNA, Comirnaty (Pfizer) Janene Aichholz Work Phone: [facility] 08-17-2020 Pfizer Purple Cap SARS-CoV-2 Vaccination Janene Aichholz [employer] Work Phone: [facility] 08-16-2020 COVID-19 mRNA, Comirnaty (Pfizer) Janene Aichholz Work Phone: [facility] 03-10-2020 influenza, injectabl e, quadrivalent, preservative free Janene Aichholz [employer] Work Phone: [facility] 03-10-2020 pneumococcal polysaccharide vaccine, 23 valent Janene Aichholz [employer] Work Phone: [facility] 02-16-2020 influenza, seasonal, injectable Janene Aichholz [employer] Work Phone: [facility] 02-16-2020 pneumococcal polysaccharide vaccine, 23 valent Janene Aichholz [employer] Work Phone: [facility] 01-31-2019 influenza, injectabl e, quadrivalent, preservative free Janene Aichholz Work Phone: [facility] 01-31-2019 influenza, injectabl e, quadrivalent, contains preservative Christian Hamilton Other [facility] [employer] Other 03-15-2018 influenza, injectabl e, quadrivalent, preservative free Janene Aichholz Work Phone: [facility] 03-15-2018 influenza, injectabl e, quadrivalent, contains preservative Christian Hamilton Other [facility] [employer] Other 02-03-2017 influenza, injectabl e, quadrivalent, preservative free Janene Aichholz [employer] Work Phone: [facility] 04-16-2011 pneumococcal conjuga te vaccine, 13 valent Janene Aichholz [employer] Work Phone: [facility] 01-14-1997 pneumococcal polysaccharide vaccine, 23 valent Janene Aichholz [employer] Work Phone: [facility] Payers Date Payer Category Payer Private Health Insurance [id number] 2023 [facility] [id number] 2023 Unknown [id number] 2022 Self-pay [id number] 2022 Medicaid [id number] [id number] 2022 Private Health Insurance 2022 Unknown 2010 Self-pay [id number] 1970 Unknown [id number] 2.16840.1.672809.3.579.2. 647 1970 Unknown [id number] 2.16.840.1.596279.3.579.2. 593 1970 Unknown [id number] 2.16.840.1.893808.3.579.2. 593 1970 Unknown [id number] 2.16840.1.533445.3.579.2. 593 1970 Unknown [id number] 2.16840.1.441336.3.579.2. 593 1970 Unknown [id number] 2.16.840.1.493307.3.579.2. 593 1970 Unknown [id number] 2.16.840.1.919855.3.579.2. 593 1970 Unknown [id number] 2.16.840.1.452191.3.579.2. 593 1970 Unknown [id number] 2.16.840.1.016226.3.579.2. 593 1970 Unknown [id number] 2.16.840.1.455359.3.579.2. 593 1970 Unknown [id number] 2.16.840.1.658186.3.579.2. 593 1970 Unknown [id number] 2.16.840.1.822081.3.579.2. 593 1970 Unknown [id number] 2.16.840.1.913813.3.579.2. 593 1970 Unknown [id number] 2.16.840.1.031098.3.579.2. 593 1970 Unknown [id number] 2.16.840.1.535178.3.579.2. 593 1970 Unknown [id number] 2.16.840.1.172263.3.579.2. 593 1970 Unknown [id number] 2.16.840.1.523723.3.579.2. 593 1970 Unknown [id number] 2.16.840.1.197375.3.579.2. 593 1970 Unknown [id number] 2.16.840.1.754226.3.579.2. 718 1970 Unknown [id number] 2.16.840.1.533157.3.579.2. 196 1970 Unknown [id number] 2.16.840.1.083872.3.579.2. 196 1970 Unknown [id number] 2.16.840.1.870752.3.579.2. 196 1970 Unknown [id number] 2.16.840.1.189129.3.579.2. 196 1970 Unknown [id number] 2.16.840.1.625082.3.579.2. 196 1970 Unknown [id number] 2.16.840.1.172542.3.579.2. 1259 1970 Unknown [id number] 2.16.840.1.896289.3.579.2. 9 1970 Unknown [id number] 2.16.840.1.943960.3.579.2. 1258 1970 Unknown [id number] 2.16.840.1.905965.3.579.2. 1258 1970 Unknown [id number] 2.16.840.1.969559.3.579.2. 1258 1970 Unknown [id number] 2.16.840.1.618942.3.579.2. 1258 1970 Unknown [id number] 2.16.840.1.437947.3.579.2. 1258 1970 Unknown [id number] 2.16.840.1.197540.3.579.2. 1258 1970 Unknown [id number] 2.16.840.1.458807.3.579.2. 716 1959 Private Health Insurance [id number] 2.16.840.1.174619.19 1959 Unknown [id number] 2.16840.1.851675.19 Medicaid Anthem [place] Medicaid [id number] 2042 [id number] Private Health Insurance [id number] 2.16840.1.689866.19 Unknown [facility]/ [id number] Unknown [id number] 2.16840.1.862522.3.579.2. 531 Unknown [id number] 2.16840.1.980452.3.579.2. 531 Unknown [id number] 2.16840.1.462658.3.579.2. 531 Social History Date Type Detail Facility Unknown if ever smoked [employer] Other Start: 05-02-2023 End: 11-18-2024 Sex Assigned At [facility] Start: 08-12-2021 End: 11-01-2023 Tobacco smoking status NHIS Never smoked tobacco (finding) [facility] Start: 1970 Sex Assigned At Female F [facility] Start: 09-20-2023 Tobacco use and exposure Smokeless [...] file [facility] Sex Female (finding) [facility] How hard is it for you to [...] to buy more. Often true [facility] Start: 12-02-2024 Alcohol intake Alcohol Use Details [facility] Start: 12-02-2024 Tobacco use and exposure Non-Smoking Tobacco Use Details [facility] Sexual Orientation Straight or heterosexual [facility] Work Phone: Start: 08-23-2022 Gender identity Female [facility] NEGATED: Highlighted rowStart: NINF History of tobacco use Passive smoker [facility] Healthcare NEGATED: Highlighted rowStart: 12-02-2024 Tobacco smoking status NHIS Never smoker [facility] NEGATED: Highlighted rowStart: 12-02-2024 History of tobacco use Current non-smoker [facility] Medical Equipment Procedure Code Equipment Code Equipment Origin al Text Equipment Identifier Dates Once a day Use a s instructed [id number] Start: 07-02-2023 End: 07-01-2024 Fsbs bid [id number] Start: 11-19-2023 End: 11-03-2024 Checking bg leve ls once a day [id number] Start: 11-03-2024 Checking bg leve ls once a day [id number] Start: 11-03-2024 Goals Date Patient Goal Desired Activity /State Functional Status Date Assessment Result Facility 11-03-2024 Patient Health [facility] ionnaire 2 item (PHQ-2) [Reported] [facility] 10-02-2023 Functional status Patient at Baseline [facility] Work Phone: Mental Status Date Assessment Result Facility 10-02-2023 Cognitive function Cognitive Sta tus Patient at Baseline [facility] Work Phone: Clinical Notes 08-30-2021 to 12-12-2024 Note Date & Type Note Facility 12-12-2024 Note - proceed with coron jaja angiogram, discussed risks including stroke, CA, . Patient agreeable to proceed. No associated orders from this encounter found during lookback period of 72 hours. [facility] 12-02-2024 Evaluation note Type assessment Body mass index [BMI] 39.0-39.9, adult [facility] Work Phone: [phone] History of Present illness Narrative* Encounter Date Complaint History Of Prese nt Illness Periodic exam periodic exam [facility] Work Phone: 1(873) 710-797108-19-2025 Instructions* Date Instruction Additional Infor elginelizabeth Dietary management e ducation, guidance, and counseling Related to Body mass index [BMI] 39.0-39.9, adult [facility] Work Phone: 1(608) 337-368008-13-2025 Evaluation note* Diagnosis Onset Date Resolution Status Admit Date Diabetic nephropathy associated with type 2 diabetes mellitus acute November 26, 2 025 9:38am Hyperkalemia acute November 26, 2024 9:38am Hyperuricemia acute November 9:38am Hypomagnesemia acute November 9:38am Iron deficiency acute November 262024 9:38am Localized edema acute November 262024 9:38am Morbid obesity acute November 9:38am Stage 3b chronic kidney disease acute November 26 9:38am Vitamin B12 deficiency acute 2024 9:38am Vitamin D deficiency acute 2024 9:38am Hypertensive nephropathy resolved November 26, 2024 9:38am Hypertension acute December 8:42am Intractable back pain acute Dec 8:42am Morbid obesity acute December 16, 2024 8:42am Stage 3b chronic kidney disease acute December 16 025 8:42am [facility] [facility] Work Phone: [phone]) 795-429707-21-2025 History of Present illness Narrative* Marya Castorena, - 11/03/2024 1:31 PM EDTAssociated Problem(s): Type 2 diabetes mellitus with stage [...] current care plan and goals were discussed. Acopy of this along with pertinent instructions were [...] loss then will consider increasing her mounjaro. * Marya Castorena DO - 11/03/2024 9:45 AM EDT Images from the original note were [...] Muscle spasm Stage 3b chronic kidney disease ([facility]) Displacement of lumbar intervertebral disc with radiculopathy [...] serious comorbidity and body mass index (BMI) of36.0 to 36.9 in adult ([facility]) Type 2 diabetes mellitus with other circulatory [...] Sulfamethoxazole-Trimethoprim Rash Other Reaction(s): other, Unknown Synopsis [employer] 11/03/2024 10:14 10/08/2024 00:00 Antidiabetic medications Tirzepatide INJECT 7.5 MG SUBCUTANEOUSLY UNDER THE SKIN 1 TIME PER WEEK (7.5 MG/0.5ML SOAJ) -Discontinued Tirzepatide 7.5 mg q7 days SC (7.5 MG/0.5ML SOAJ) 7.5 mg q7 days SC (7.5 MG/0.5ML SOAJ) Labs [facility] [place] HEMOGLOBIN A1C/HEMOGLOBIN.TOTAL:MFR:PT:BLD:QN: 5.2 Outpatient prescription The ASCVD Risk score [...] current care plan and goals were discussed. Acopy of this along with pertinent instructions were [...] serious comorbidity and body mass index (BMI) of36.0 to 36.9 in adult ([facility]) Type 2 diabetes mellitus with other circulatory complications ([facility]) - Primary Other Visit Diagnoses Type 2 diabetes mellitus with stage 4 chronic kidney disease, without long-term current use of insulin (HCC) Type 2 diabetes mellitus without complication, without long-term current use of insulin ([facility]) Relevant Medications Blood Glucose Monitoring Suppl (True [...] TAKE 1 CAPSULE BY MOUTH ONCE DAILY TAKEWITH 40 MG FOR A TOTAL OF 60 [...] mouth every 8 (eight) hours if needed formuscle spasms VRAYLAR 6 MG CAPSULE Take 1 [...] in leg swelling. LANCETS (ONETOUCH DELICA PLUS [id number]) [facility] Fsbs bid I have reviewed and reconciled the history and medication list with the patient today. documented in this encounterFreeman Heart [id number] NoteBELLATRI[facility] Note Chief Complaint: Patient is here today for surgery clearance. Patient states they found a problem while doing her pre op testing. 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 Patient complains of GARNER with walking really [...] Disp: , Rfl: sacubitril-valsartan (more content not included)...[facility]05-21-2025 History of Present illness Narrative* TOSHIA ASKEW - 09/03/2024 9:40 AM EDT Sore on back that wont heal- pt states she has had it for 6m. Pt states that she thought it was a pimple and she can only reach it with the tips of her fingers and would try to scratch or squeeze it.Pt states that the sore has never opened and nothing has came out of it. Pt has never put anything on it as well. Sinus headache/pressure Pt takes zyrtec and Flonase nasal spray. Fluoxetine/Prozac [address] Kid[address] cut BP med in half twice daily (entresto) Pt needs refills on the amlodipine * Janene Lew NP - 09/03/2024 9:40 AM EDT Images from the original note were [...] in the last year: no Specialist: Shalini, [facility], Dr Huffman HCPOA/Living Will: no Concerns: Sore on back that wont heal- pt states she has had it for 6m. Pt states that she thought it was a pimple and she can only reach it with the tips of her fingers and would try to scratch or squeeze it.Pt states that the sore has never opened [...] negatives include no blurred vision, chest pain, peripheraledema (occ) or shortness of breath. There are no associated agents to hypertension. Risk factors for coronary artery disease include diabetes mellitus, dyslipidemia, obesity and sedentary lifestyle. Past treatments include calcium channel blockers and angiotensin blockers. The current treatment provides significant improvement. Hypertensive end-organ damage includes kidney disease, CAD/CA and heart failure. There is no history of PVD. SUBJECTIVE: MEDICATIONS: Current Outpatient Medications Medication Instructions amLODIPine (NORVASC) 10 mg, Oral, Daily ARIPiprazole (ABILIFY) 30 mg, Daily aspirin (ASPIRIN ADULT LOW DOSE) 81 mg, Daily atorvastatin (LIPITOR) 80 mg, Daily benztropine (Cogentin) 0.5 MG tablet Blood Glucose Monitoring Suppl (True Metrix Air Glucose Meter) w/Device kit 1 each, Does not apply,Daily busPIRone (BUSPAR) 30 mg, 2 times daily [...] 30 mg, Daily Lancets (OneTouch Delica Plus [id number]) misc Fsbs bid metoprolol succinate XL (TOPROL-XL) [...] pain Clostridioides difficile diarrhea 07/02/2023 Coronary arteriosclerosis ([facility]) 04/30/2023 COVID-19 Degenerative disc disease, lumbar 07/02/2023 Depression ([facility]) 04/30/2023 Diabetes mellitus, type 2 (CMS/HCC) 04/30/2023 Dyspnea 07/02/2023 Elevated liver enzymes 07/02/2023 Family history of cancer Fatigue GERD (gastroesophageal reflux disease) 04/30/2023 H/O bariatric surgery 07/02/2023 Headache 07/02/2023 History of fusion of cervical spine Hyperkalemia Hyperlipidemia ([facility]) 04/30/2023 Hypertension ([facility]) 04/30/2023 Hypomagnesemia 04/30/2023 Insomnia 07/02/2023 Irritable bowel syndrome with diarrhea 07/02/2023 Lower extremity edema 04/30/2023 Lumbar disc herniation 07/02/2023 Microscopic hematuria 04/30/2023 Migraine headache (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) 04/30/2023 Swelling of both lower extremities 04/30/2023 Past Surgical History: Procedure Laterality Date BACK SURGERY 2021 BARIATRIC SURGERY 2017 COLONOSCOPY HYSTERECTOMY 2010 NECK SURGERY SHOULDER SURGERY Left RC family history includes Cancer in her mother; Depression in her mother; Diabetes in her sister; Heart attack in her father; Heart disease in her brother and father; Hypertension in her sister; Kidneydisease in her sister; Stroke in her mother; [...] Problem List Items Addressed This Visit Hypertension ([facility]) Please check blood pressure daily and record DASH diet Limit caffeine Take medication as directed Contact office if chest pain, pressure, dizziness, shortness of breath, swelling legs Recommend slow position changes Continue current meds Cont ASA, statin, b seema Relevant Medications amLODIPine (Norvasc) 10 MG tablet Type 2 diabetes mellitus with stage 3a chronic kidney disease, without long-term current use of insulin (HCC) ([facility]) Check blood sugars daily, notify if <70 or >200. Take medications (pills or insulin) as directed. Monitor for s/s of hypoglycemia (sweaty, dizziness, nausea, vomiting, or shakiness). Watch for increase in thirst, urination, or appetite. Inspect feet frequently monitoring for open wounds , andalso recommend yearly eye exam. Pt should attempt to remain as physically active as chronic conditions allow, as well as trying to follow a diet low in carbohydrates, and simple sugars. Continue on mounjaro as well A1c: 5.5% on 06/16/24 Pt is managed by dr castorena Hyperlipidemia ([facility]) On statin therapy as well as fenofibrate [...] serious comorbidity and body mass index (BMI) of38.0 to 38.9 in adult ([facility]) Discussed with patient their BMI (actual, verses [...] conditions allow) Follow up yearly and prn * Janene Lew NP - 09/03/2024 6:40 AM EDTAssociated Problem(s): Encounter for wellness examination in adult Reviewed Ht/Wt/BMI Recommend eye exam yearly Recommend dental exams twice a year Balance work/leisure activities Exercises is recommended most days of the week (appropriate as chronic conditions allow) Follow up yearly and prn * Janene Lew NP - 09/03/2024 6:39 AM EDTAssociated Problem(s): Hyperlipidemia ([facility]) On statin therapy as well as fenofibrate Check labs yearly and prn dose changes * Janene Lew NP - 09/03/2024 6:39 AM EDTAssociated Problem(s): Type 2 diabetes mellitus with stage 3a chronic kidney disease, without long-term current use of insulin ([facility]) ([facility]) Check blood sugars daily, notify if <70 or >200. Take medications (pills or insulin) as directed. Monitor for s/s of hypoglycemia (sweaty, dizziness, nausea, vomiting, or shakiness). Watch for increase in thirst, urination, or appetite. Inspect feet frequently monitoring for open wounds , andalso recommend yearly eye exam. Pt should attempt to remain as physically active as chronic conditions allow, as well as trying to follow a diet low in carbohydrates, and simple sugars. Continue on mounjaro as well A1c: 5.5% on 06/16/24 Pt is managed by dr castorena * Janene Lew NP - 09/03/2024 6:38 AM EDTAssociated Problem(s): Class 2 severe obesity due to excess calories with serious comorbidity and body mass index (BMI) of 38.0 to 38.9 in adult ([facility]) Discussed with patient their BMI (actual, verses recommended). We have also discussed lifestyle modifications: attempts to perform physical activity as chronic conditions allow, also to monitor dietary intake: increasing protein/fruits/veggies and lowering carb intake (unless contraindicated). Limit sodas, juices, and sugary drinks. Has been demonstrating weight loss Approx 80 pounds in the last year, and is on mounjaro * Janene Lew NP - 09/03/2024 6:37 AM EDTAssociated Problem(s): Stage 3b chronic kidney disease (HCC) (CMS/HCC) Is established with nephrology for mgmt/monitoring Continue to keep blood pressure and DM at goal * Janene Lew NP - 09/03/2024 6:37 AM EDTAssociated Problem(s): Chronic diastolic heart failure (CMS/HCC) Follows with cardiology Current meds: statin, lasix, entresto, b seema, and amlodipine Recommend daily weight, limit sodium, if weight increases by more than 3 pounds in 24 hours notify cardiology * Janene Lew NP - 09/03/2024 6:35 AM EDTAssociated Problem(s): GERD (gastroesophageal reflux disease) stable * Janene Lew NP - 09/03/2024 6:34 AM EDTAssociated Problem(s): Hypertension ([facility]) Please check blood pressure daily and record DASH diet Limit caffeine Take medication as directed Contact office if chest pain, pressure, dizziness, shortness of breath, swelling legs Recommend slow position changes Continue current meds Cont ASA, statin, b seema documented in this encounterFreeman Heart [id number] Instructions* Patient Instructions* Janene Lew NP - 09/03/2024 9:[address] Rebolledo if we should change to Vit D2 once a week No other changes in meds or doses documented in this [facility]04-01-2025 History of Present illness Narrative* Janene Lew NP - 07/15/2024 12:19 PM EDT Contact provider, had a fall the other day on porch, now left ankle and foot pain, would like an xray documented in this [facility]03-03-2025 History of Present illness Narrative* Marya Castorena DO - 06/16/2024 9:36 AM ESTAssociated Problem(s): Type 2 diabetes mellitus with other circulatory complications ([facility]) During the appointment today all pertinent labs, imaging, health maintenance, and glucose readings were reviewed. Encouraged to check blood glucose throughout the day with some fasting and some PP readings. They are to bring their glucose meter/cgm in to all appointments. All of the patients questions, treatment options, and current care plan and goals were discussed. Acopy of this along with pertinent instructions were [...] 2 days a week of resistance training. * Marya Castorena DO - 06/16/2024 9:15 AM EST Images from the original note were not [...] serious comorbidity and body mass index (BMI) of38.0 to 38.9 in adult ([facility]) Left lower quadrant abdominal pain Type 2 diabetes mellitus with other circulatory complications ([facility]) Acute non-recurrent pansinusitis Social History Tobacco Use [...] mg Weekly SC (7.5 MG/0.5ML SOAJ) Labs [facility] [place] HEMOGLOBIN A1C/HEMOGLOBIN.TOTAL:MFR:PT:BLD:QN: 5.5 Outpatient prescription The ASCVD Risk score [...] disease, without long-term current use of insulin ([facility]) ([facility]) Relevant Orders POCT glycosylated hemoglobin (Hb A1C) docked device (Completed) Class 2 severe obesity due to excess calories with serious comorbidity and body mass index (BMI) of38.0 to 38.9 in adult ([facility]) - Primary Type 2 diabetes mellitus with other circulatory complications ([facility]) During the appointment today all pertinent labs, imaging, health maintenance, and glucose readings were reviewed. Encouraged to check blood glucose throughout the day with some fasting and some PP readings. They are to bring their glucose meter/cgm in to all appointments. All of the patients questions, treatment options, and current care plan and goals were discussed. Acopy of this along with pertinent instructions were [...] crush or chew.. LANCETS (ONETOUCH DELICA PLUS [id number]) [facility] Fsbs bid METOPROLOL SUCCINATE XL (TOPROL-XL) 12.5 [...] mouth every 8 (eight) hours if needed formuscle spasms VRAYLAR 6 MG CAPSULE Take 1 [...] with the patient today. documented in this [facility]11-21-2024 History of Present illness Narrative* Janene Lew NP - 03/06/2024 9:59 AM ESTAssociated Problem(s): Acute non-recurrent pansinusitis Finish atb, fluids, fu if not better * TOSHIA ASKEW - 03/06/2024 9:20 AM EST Pt lost her voice on Sunday. Pt [...] SOB, and no tightness in the chest. * Janene Lew, [employer]LECT[employer]OR [employer]SEM[employer] - 03/06/2024 9:20 AM EST Images from the original note were not [...] problems. Hypertensive end-organ damage includes kidney disease, CAD/CA and heart failure. Identifiable causes of hypertension [...] Meter) w/Device kit 1 each, Does not apply,Daily busPIRone (BUSPAR) 30 mg, 2 times daily [...] 30 mg, Daily Lancets (OneTouch Delica Plus [id number]) [facility] Fsbs bid metoprolol succinate XL (TOPROL-XL) 12.5 [...] pain Clostridioides difficile diarrhea 07/02/2023 Coronary arteriosclerosis ([facility]) 04/30/2023 COVID-19 Degenerative disc disease, lumbar 07/02/2023 Depression ([facility]) 04/30/2023 Diabetes mellitus, type 2 ([facility]) 04/30/2023 Dyspnea 07/02/2023 Elevated liver enzymes 07/02/2023 Family history of cancer Fatigue GERD (gastroesophageal reflux disease) 04/30/2023 H/O bariatric surgery 07/02/2023 Headache 07/02/2023 History of fusion of cervical spine Hyperkalemia Hyperlipidemia ([facility]) 04/30/2023 Hypertension ([facility]) 04/30/2023 Hypomagnesemia 04/30/2023 Insomnia 07/02/2023 Irritable bowel syndrome with diarrhea 07/02/2023 Lower extremity edema 04/30/2023 Lumbar disc herniation 07/02/2023 Microscopic hematuria 04/30/2023 Migraine headache ([facility]) 04/30/2023 Myalgia Nephrolithiasis 07/02/2023 URIEL (obstructive sleep apnea) 04/30/2023 [id number] condition Restless leg syndrome Seasonal allergies 04/30/2023 Spinal stenosis of lumbar region at multiple levels 04/30/2023 Spinal stenosis of thoracolumbar region 04/30/2023 Stage 3 chronic kidney disease due to type 2 diabetes mellitus (HCC) ([facility]) 04/30/2023 Swelling of both lower extremities 04/30/2023 Past Surgical History: Procedure Laterality Date BACK SURGERY 2021 BARIATRIC SURGERY 2016 COLONOSCOPY HYSTERECTOMY 2010 NECK SURGERY SHOULDER SURGERY Left RC family history includes Cancer in her mother; Depression in her mother; Diabetes in her sister; Heart attack in her father; Heart disease in her brother and father; Hypertension in her sister; Kidneydisease in her sister; Stroke in her mother; [...] for oral medications and treatment plan [facility] pain mgmt, ?? Possible spinal cord stimulator Will complete her FMLA URIEL (obstructive sleep apnea) Not using this, mask broke and they will give new mask Hypertension ([facility]) - Primary Please check blood pressure daily and record DASH diet Limit caffeine Take medication as directed Contact office if chest pain, pressure, dizziness, shortness of breath, swelling legs Recommend slow position changes Continue current meds Cont ASA, statin, b seema Relevant Orders Comprehensive metabolic panel Urinalysis with reflex microscopic (clean catch) Microalbumin / creatinine, urine ratio Coronary arteriosclerosis ([facility]) Relevant Orders CBC and differential Comprehensive metabolic panel Lipid panel RESOLVED: Swelling of both lower extremities Lower extremity edema Continues to take lasix as directed Compression stockings Limiting sodium intake Elevated legs above level of heart as much as possible Relevant Orders Comprehensive metabolic panel Type 2 diabetes mellitus with stage 3a chronic kidney disease, without long-term current use of insulin (HCC) ([facility]) Check blood sugars daily, notify if <70 or >200. Take medications (pills or insulin) as directed. Monitor for s/s of hypoglycemia (sweaty, dizziness, nausea, vomiting, or shakiness). Watch for increase in thirst, urination, or appetite. Inspect feet frequently monitoring for open wounds , andalso recommend yearly eye exam. Pt should attempt to remain as physically active as chronic conditions allow, as well as trying to follow a diet low in carbohydrates, and simple sugars. Continue on mounjaro as well 03/09 A1c is 5.1% H/O bariatric surgery Relevant Orders Iron level Ferritin Bipolar disorder ([facility]) Continue with psych for management of her mental health Generalized anxiety disorder ([facility]) Continue with psych for management of symptoms [...] serious comorbidity and body mass index (BMI) of45.0 to 49.9 in adult ([facility]) Has lost approx 64 pounds since 07/07 [...] Relevant Medications azithromycin (Zithromax) 250 MG tablet * Janene Lew NP - 03/06/2024 6:47 AM ESTAssociated Problem(s): Generalized anxiety disorder ([facility]) Continue with psych for management of symptoms and meds * Janene Lew NP - 03/06/2024 6:47 AM ESTAssociated Problem(s): Bipolar disorder ([facility]) Continue with psych for management of her mental health * Janene Lew NP - 03/06/2024 6:46 AM ESTAssociated Problem(s): Class 3 severe obesity due to excess calories with serious comorbidity and body mass index (BMI) of 45.0 to 49.9 in adult ([facility]) Has lost approx 64 pounds since 07/07 Discussed with patient their BMI (actual, verses recommended). We have also discussed lifestyle modifications: attempts to perform physical activity as chronic conditions allow, also to monitor dietary intake: increasing protein/fruits/veggies and lowering carb intake (unless contraindicated). Limit sodas, juices, and sugary drinks. Keep up the good work * Janene Lew NP - 03/06/2024 6:45 AM ESTAssociated Problem(s): Type 2 diabetes mellitus with stage 3a chronic kidney disease, without long-term current use of insulin ([facility]) ([facility]) Check blood sugars daily, notify if <70 or >200. Take medications (pills or insulin) as directed. Monitor for s/s of hypoglycemia (sweaty, dizziness, nausea, vomiting, or shakiness). Watch for increase in thirst, urination, or appetite. Inspect feet frequently monitoring for open wounds , andalso recommend yearly eye exam. Pt should attempt to remain as physically active as chronic conditions allow, as well as trying to follow a diet low in carbohydrates, and simple sugars. Continue on mounjaro as well 03/09 A1c is 5.1% * Janene Lew NP - 03/06/2024 6:44 AM ESTAssociated Problem(s): Lower extremity edema Continues to take lasix as directed Compression stockings Limiting sodium intake Elevated legs above level of heart as much as possible * Janene Lew NP - 03/06/2024 6:44 AM ESTAssociated Problem(s): Stage 3b chronic kidney disease (HCC) (CMS/HCC) Is established with nephrology for mgmt/monitoring Continue to keep blood pressure and DM at goal * Janene Lew NP - 03/06/2024 6:42 AM ESTAssociated Problem(s): Hypertension (CMS/HCC) Please check blood pressure daily and record DASH diet Limit caffeine Take medication as directed Contact office if chest pain, pressure, dizziness, shortness of breath, swelling legs Recommend slow position changes Continue current meds Cont ASA, statin, b seema * Janene Lew NP - 03/06/2024 6:42 AM ESTAssociated Problem(s): URIEL (obstructive sleep apnea) Not using this, mask broke and they will give new mask * Janene Lew NP - 03/06/2024 6:41 AM ESTAssociated Problem(s): Restless leg syndrome Continue mirapex * Janene Lew NP - 03/06/2024 6:41 AM ESTAssociated Problem(s): Spinal stenosis of lumbar region at multiple levels Continues with pain mgmt for oral medications and treatment plan [facility] pain mgmt, ?? Possible spinal cord stimulator Will complete her FMLA documented in this [facility]11-21-2024 Instructions* Patient Instructions* Janene Lew NP - 03/06/2024 9:20 AM EST Call CPAP company: see if they need a compliance report, they should be able to down load that for you Keep up great work with diabetes and weight loss documented in this [facility]11-05-2024 History of Present illness Narrative* Marya Castorena DO - 02/19/2024 9:49 AM ESTAssociated Problem(s): Type 2 diabetes mellitus with other circulatory complications ([facility]) During the appointment today all pertinent labs, imaging, health maintenance, and glucose readings were reviewed. Encouraged to check blood glucose throughout the day with some fasting and some PP readings. They are to bring their glucose meter/cgm in to all appointments. All of the patients questions, treatment options, and current care plan and goals were discussed. Acopy of this along with pertinent instructions were [...] moderate exercise weekly. Will increase her mounjaro. * Marya Castorena, - 02/19/2024 9:30 AM EST Images from the original note were not [...] plateau for her weight loss right now stayingin the 170's the past month. SUBJECTIVE: PROBLEM [...] (CMS/HCC) Depressive disorder (CMS/HCC) Generalized anxiety disorder (CMS/HCC) Chronic diastolic heart failure (CMS/HCC) History of anuria E-coli UTI Muscle spasm Stage 3b chronic kidney disease (HCC) (CMS/HCC) Displacement of lumbar intervertebral disc with radiculopathy Hypertensive nephropathy (CMS/HCC) History of PTCA Headache, tension-type Declining functional [...] serious comorbidity and body mass index (BMI) of45.0 to 49.9 in adult ([facility]) Left lower quadrant abdominal pain Type 2 diabetes mellitus with other circulatory complications ([facility]) Social History Tobacco Use Smoking status: Never [...] disease, without long-term current use of insulin ([facility]) ([facility]) Class 3 severe obesity due to excess calories with serious comorbidity and body mass index (BMI) of45.0 to 49.9 in adult ([facility]) Type 2 diabetes mellitus with other circulatory complications ([facility]) - Primary During the appointment today all pertinent labs, imaging, health maintenance, and glucose readings were reviewed. Encouraged to check blood glucose throughout the day with some fasting and some PP readings. They are to bring their glucose meter/cgm in to all appointments. All of the patients questions, treatment options, and current care plan and goals were discussed. Acopy of this along with pertinent instructions were [...] morning. Do not crush or chew.. LANCETS (AwesomenessTVTOUCH DELICA PLUS [id number]) [facility] bid METOPROLOL SUCCINATE XL (TOPROL-XL) 12.5 [...] mouth every 8 (eight) hours if needed formuscle spasms Modified Medications No medications on file Discontinued Medications FLUCONAZOLE (DIFLUCAN) 150 MG TABLET 1 dose, repeat in 72 hours MOUNJARO 5 MG/0.5ML SOLUTION AUTO-INJECTOR inject 5 mg subcutaneously every 7 (seven) days for 28 days VRAYLAR 4.5 MG CAPSULE I have reviewed and reconciled the history and medication list with the patient today. documented in this encounterFreeman Heart [id number] [facility] Chief Complaint: Pt [...] S1, S2 present. R (more content not included)...[facility]08-21-2024 History of Present illness Narrative* Janene Lew NP - 12/05/2023 9:11 AM EDTAssociated Problem(s): Restless leg syndrome Continue mirapex * Janene Lew NP - 12/05/2023 9:10 AM EDTAssociated Problem(s): Left lower quadrant abdominal pain Will check xray to r/o perforation Will treat for diverticulitis: cipro and flagyl Fu if not better Advised no ETOH, as well as NO tizanidine while taking cipro Increase fiber Denies any fever, chills, NV Will call office if not better after atb If conditions worsens go to the ER * TOSHIA ASKEW - 12/05/2023 8:40 AM EDT Pt states that since having the colonoscopy [...] Hurts more when standing and laying down. * Janene Louann, [employer] - 12/05/2023 8:40 AM EDT Images from the original note were [...] by: bending and turning makes it worse. Treatmentstried: takes percocet doesnt help. SUBJECTIVE: MEDICATIONS: Current Outpatient Medications Medication Instructions amLODIPine (NORVASC) 10 mg, Oral, Daily ARIPiprazole (ABILIFY) 30 mg, Oral, Daily aspirin (ASPIRIN ADULT LOW DOSE) 81 mg, Oral, Daily atorvastatin (LIPITOR) 80 mg, Oral, Daily Blood Glucose Monitoring Suppl (True Metrix Air Glucose Meter) w/Device kit 1 each, Does not apply,Daily busPIRone (BUSPAR) 30 mg, Oral, 2 times [...] Daily, Do not crush or chew. Lancets (FixMeStickTouch Delica Plus [id number]) [facility] [place] [facility] bid metoprolol succinate XL (TOPROL-XL) 12.5 [...] 2 times daily, Pt is to take 1/2tab in morning and 1/2 tab at night [...] pain. Negative for blood in stool, constipation, diarrhea,hematochezia, nausea and vomiting. Genitourinary: Negative for difficulty [...] pain Clostridioides difficile diarrhea 07/02/2023 Coronary arteriosclerosis ([facility]) 04/30/2023 COVID-19 Degenerative disc disease, lumbar 07/02/2023 Depression ([facility]) 04/30/2023 Diabetes mellitus, type 2 ([facility]) 04/30/2023 Dyspnea 07/02/2023 Elevated liver enzymes 07/02/2023 Family history of cancer Fatigue GERD (gastroesophageal reflux disease) 04/30/2023 H/O bariatric surgery 07/02/2023 Headache 07/02/2023 History of fusion of cervical spine Hyperkalemia Hyperlipidemia ([facility]) 04/30/2023 Hypertension ([facility]) 04/30/2023 Hypomagnesemia 04/30/2023 Insomnia 07/02/2023 Irritable bowel syndrome with diarrhea 07/02/2023 Lower extremity edema 04/30/2023 Lumbar disc herniation 07/02/2023 Microscopic hematuria 04/30/2023 Migraine headache ([facility]) 04/30/2023 Myalgia Nephrolithiasis 07/02/2023 URIEL (obstructive sleep apnea) 04/30/2023 [id number] condition Restless leg syndrome Seasonal allergies 04/30/2023 [...] brother and father; Hypertension in her sister; Kidneydisease in her sister; Stroke in her mother; [...] She is obese. She is not ill-appearing, toxic- appearing or diaphoretic. HENT: Head: Normocephalic and atraumatic. [...] Visit Body mass index (BMI) 45.0-49.9, adult ([facility]) Stage 3b chronic kidney disease (HCC) (CMS/HCC) [...] panel CBC and differential documented in this encounterFreeman Heart [id number] Evaluation note* Encounter Date Diagnosis Assessment Notes Treatment Notes Treatment Clinical Notes August, Sacroiliitis (ICD-10 - M46.1) 51 [...] - G89.29) Proceed with current treatment plan [facility] Other 03-20-2023 Evaluation note* Encounter Date Diagnosis [...] negative findings were considered in medical decision-making. [facility] Other 03-11-2023 Hospital Discharge instructions Additional Instructions [...] control high fever or any [facility] Work Phone: 1(237) 864-531601-27-2023 Evaluation note* Encounter Date Diagnosis Assessment Notes [...] referral will monty sent to pain managemernt [facility] Other 01-10-2023 Evaluation note* Encounter Date Diagnosis [...] obesity (ICD-10 - E66.01) Encouraged weight loss [facility] Other 10-12-2022 Evaluation note* Encounter Date Diagnosis [...] strap. A prescription was sent to the [facility] for new supplies throughout the year, as [...] sleepiness, or poor response to treatment. . [facility] Other 08-23-2022 Evaluation note* Encounter Date Diagnosis [...] of thoracolumbar intervertebral disc (ICD-10 - M51.25) [facility] Other 07-28-2022 Evaluation note* Encounter Date Diagnosis [...] a med check and PT follow up [facility] Other 06-16-2022 Evaluation note* Encounter Date Diagnosis [...] labor Sep, Thoracic myelopathy (ICD-10 - M47.14) [facility] Other 05-17-2022 Evaluation note* Encounter Date Diagnosis Assessment Notes Treatment Notes Treatment Clinical Notes 17 May, 2022 Lumbar radiculopathy (ICD-10 - M54.16) This patient [...] Overall she is making a good recovery [facility] [employer] Other consult note* Clinical Note Date No Information [facility] Work Phone: Discharge summary* Clinical Note Date No Information [facility] Work Phone: Evaluation noteNo [facility] [employer] Other evaluation noteNo assessment information available [facility] Work Phone: Evaluation note* [...] disease reso lved Hypertensive nephropathy res olved [facility] Work Phone: Evaluation note* [...] D deficiency acute Hypertensive nephropathy res olved [facility] Work Phone: Evaluation note* Diagnosis Primary hypertension ([facility])- Primary Unspecified essential hypertension Gastroesophageal reflux disease, unspecified whether esophagitis present Microscopic hematuria Lower extremity edema Edema Type 2 diabetes mellitus without complication, without long-term current use of insulin ([facility]) Stage 3 chronic kidney disease due to type 2 diabetes mellitus (HCC) ([facility]) Mixed hyperlipidemia ([facility]) Mixed hyperlipidemia Migraine without aura and without status migrainosus, not intractable ([facility]) Encounter for screening mammogram for malignant neoplasm of breast Colon cancer screening Special screening for malignant neoplasms, colon BMI 50.0-59.9, adult ([facility]) Heel pain, bilateral Type 2 diabetes mellitus without complication, without long-term current use of insulin ([facility])- Primary History of anuria Stage 3 chronic kidney disease due to type 2 diabetes mellitus ([facility]) ([facility]) BMI 50.0-59.9, adult ([facility]) URIEL (obstructive sleep apnea) Obstructive sleep apnea (adult) (pediatric) Primary hypertension ([facility]) Unspecified essential hypertension Chronic diastolic heart failure ([facility]) Chronic diastolic heart failure Depression, unspecified depression type ([facility]) Type 2 diabetes mellitus without complication, without long-term current use of insulin ([facility])- Primary Stage 3 chronic kidney disease due to type 2 diabetes mellitus (HCC) ([facility]) BMI 50.0-59.9, adult ([facility]) Lower extremity edema Edema Dental infection- Primary Type 2 diabetes mellitus with stage 3 chronic kidney disease, without long-term current use of insulin, unspecified whether stage 3a or 3b CKD (HCC) ([facility])- Primary Bipolar affective disorder, remission status unspecified ([facility]) Restless leg syndrome Restless legs syndrome (RLS) URIEL (obstructive sleep apnea) Obstructive sleep apnea (adult) (pediatric) Primary hypertension ([facility]) Unspecified essential hypertension Chronic diastolic heart failure ([facility]) Chronic diastolic heart failure Stage 3 chronic kidney disease due to type 2 diabetes mellitus (HCC) ([facility]) Seasonal allergies Allergic rhinitis, cause unspecified BMI 50.0-59.9, adult ([facility]) Type 2 diabetes mellitus with stage 4 chronic kidney disease, without long-term current use of insulin ([facility])- Primary Type 2 diabetes mellitus without complication, without long-term current use of insulin ([facility]) Left lower quadrant abdominal pain- Primary Morbid (severe) obesity due to excess calories ([facility]) Body mass index (BMI) 45.0-49.9, adult ([facility]) Restless leg syndrome Restless legs syndrome (RLS) Stage 3b chronic kidney disease (HCC) ([facility]) Type 2 diabetes mellitus with other circulatory complications ([facility])- Primary Type 2 diabetes mellitus with stage 4 chronic kidney disease, without long-term current use of insulin ([facility]) Type 2 diabetes mellitus with stage 3a chronic kidney disease, without long-term current use of insulin (HCC) ([facility]) Class 3 severe obesity due to excess calories with serious comorbidity and body mass index (BMI) of 45.0 to 49.9 in adult ([facility]) documented in this encounter [facility] HealthcareEvaluation note* Diagnosis Primary hypertension ([facility])- Primary Unspecified essential hypertension Gastroesophageal reflux disease, unspecified whether esophagitis present Microscopic hematuria Lower extremity edema Edema Type 2 diabetes mellitus without complication, without long-term current use of insulin ([facility]) Stage 3 chronic kidney disease due to type 2 diabetes mellitus (HCC) ([facility] Mixed hyperlipidemia ([facility]) Mixed hyperlipidemia Migraine without aura and without status migrainosus, not intractable ([facility]) Encounter for screening mammogram for malignant neoplasm of breast Colon cancer screening Special screening for malignant neoplasms, colon BMI 50.0-59.9, adult ([facility]) Heel pain, bilateral Type 2 diabetes mellitus without complication, without long-term current use of insulin ([facility])- Primary History of anuria Stage 3 chronic kidney disease due to type 2 diabetes mellitus (HCC) ([facility]) BMI 50.0-59.9, adult ([facility]) URIEL (obstructive sleep apnea) Obstructive sleep apnea (adult) (pediatric) Primary hypertension ([facility] Unspecified essential hypertension Chronic diastolic heart failure ([facility]) Chronic diastolic heart failure Depression, unspecified depression type ([facility]) Type 2 diabetes mellitus without complication, without long-term current use of insulin ([facility])- Primary Stage 3 chronic kidney disease due to type 2 diabetes mellitus (HCC) ([facility]) BMI 50.0-59.9, adult ([facility]) Lower extremity edema Edema Dental infection- Primary Type 2 diabetes mellitus with stage 3 chronic kidney disease, without long-term current use of insulin, unspecified whether stage 3a or 3b CKD (HCC) ([facility])- Primary Bipolar affective disorder, remission status unspecified ([facility]) Restless leg syndrome Restless legs syndrome (RLS) URIEL (obstructive sleep apnea) Obstructive sleep apnea (adult) (pediatric) Primary hypertension ([facility]) Unspecified essential hypertension Chronic diastolic heart failure ([facility]) Chronic diastolic heart failure Stage 3 chronic kidney disease due to type 2 diabetes mellitus (HCC) ([facility]) Seasonal allergies Allergic rhinitis, cause unspecified BMI 50.0-59.9, adult ([facility]) Type 2 diabetes mellitus with stage 4 chronic kidney disease, without long-term current use of insulin ([facility])- Primary Type 2 diabetes mellitus without complication, without long-term current use of insulin ([facility]) Left lower quadrant abdominal pain- Primary Morbid (severe) obesity due to excess calories ([facility]) Body mass index (BMI) 45.0-49.9, adult ([facility]) Restless leg syndrome Restless legs syndrome (RLS) Stage 3b chronic kidney disease (HCC) ([facility]) Type 2 diabetes mellitus with other circulatory complications ([facility])- Primary Type 2 diabetes mellitus with stage 4 chronic kidney disease, without long-term current use of insulin ([facility]) Type 2 diabetes mellitus with stage 3a chronic kidney disease, without long-term current use of insulin (HCC) ([facility]) Class 3 severe obesity due to excess calories with serious comorbidity and body mass index (BMI) of 45.0 to 49.9 in adult ([facility]) Muscle spasm Spasm of muscle documented in this encounter [facility] HealthcareEvaluation note* Diagnosis Primary hypertension ([facility])- Primary Unspecified essential hypertension Gastroesophageal reflux disease, unspecified whether esophagitis present Microscopic hematuria Lower extremity edema Edema Type 2 diabetes mellitus without complication, without long-term current use of insulin ([facility]) Stage 3 chronic kidney disease due to type 2 diabetes mellitus (HCC) ([facility]) Mixed hyperlipidemia ([facility]) Mixed hyperlipidemia Migraine without aura and without status migrainosus, not intractable ([facility]) Encounter for screening mammogram for malignant neoplasm of breast Colon cancer screening Special screening for malignant neoplasms, colon BMI 50.0-59.9, adult ([facility]) Heel pain, bilateral Type 2 diabetes mellitus without complication, without long-term current use of insulin ([facility])- Primary History of anuria Stage 3 chronic kidney disease due to type 2 diabetes mellitus (HCC) ([facility]) BMI 50.0-59.9, adult ([facility]) URIEL (obstructive sleep apnea) Obstructive sleep apnea (adult) (pediatric) Primary hypertension ([facility] Unspecified essential hypertension Chronic diastolic heart failure ([facility]) Chronic diastolic heart failure Depression, unspecified depression type ([facility]) Type 2 diabetes mellitus without complication, without long-term current use of insulin ([facility])- Primary Stage 3 chronic kidney disease due to type 2 diabetes mellitus (HCC) ([facility]) BMI 50.0-59.9, adult ([facility]) Lower extremity edema Edema Dental infection- Primary Type 2 diabetes mellitus with stage 3 chronic kidney disease, without long-term current use of insulin, unspecified whether stage 3a or 3b CKD ([facility]) ([facility])- Primary Bipolar affective disorder, remission status unspecified ([facility]) Restless leg syndrome Restless legs syndrome (RLS) URIEL (obstructive sleep apnea) Obstructive sleep apnea (adult) (pediatric) Primary hypertension ([facility]) Unspecified essential hypertension Chronic diastolic heart failure ([facility]) Chronic diastolic heart failure Stage 3 chronic kidney disease due to type 2 diabetes mellitus (HCC) ([facility]) Seasonal allergies Allergic rhinitis, cause unspecified BMI 50.0-59.9, adult ([facility]) Type 2 diabetes mellitus with stage 4 chronic kidney disease, without long-term current use of insulin ([facility])- Primary Type 2 diabetes mellitus without complication, without long-term current use of insulin ([facility]) Left lower quadrant abdominal pain- Primary Morbid (severe) obesity due to excess calories ([facility]) Body mass index (BMI) 45.0-49.9, adult ([facility] Restless leg syndrome Restless legs syndrome (RLS) [...] (BMI) of 45.0 to 49.9 in adult ([facility]) Primary hypertension ([facility])- Primary Unspecified essential hypertension Spinal stenosis of lumbar region at multiple levels Restless leg syndrome Restless legs syndrome (RLS) URIEL (obstructive sleep apnea) Obstructive sleep apnea (adult) (pediatric) Coronary arteriosclerosis ([facility]) Coronary atherosclerosis of unspecified type of vessel, [place] or graft Stage 3b chronic kidney disease (HCC) ([facility]) Swelling of both lower extremities Lower extremity edema Edema Type 2 diabetes mellitus with stage 3a chronic kidney disease, without long-term current use of insulin (HCC) ([facility]) Class 3 severe obesity due to excess calories with serious comorbidity and body mass index (BMI) of 45.0 to 49.9 in adult ([facility]) Bipolar affective disorder, remission status unspecified ([facility] Generalized anxiety disorder ([facility] Generalized anxiety disorder Vitamin D deficiency Vitamin B12 deficiency Other B-complex deficiencies H/O bariatric surgery Acute non-recurrent pansinusitis documented in this encounter [facility] HealthcareEvaluation note* Diagnosis Primary hypertension ([facility])- Primary Unspecified essential hypertension Gastroesophageal reflux disease, unspecified whether esophagitis present Microscopic hematuria Lower extremity edema Edema Type 2 diabetes mellitus without complication, without long-term current use of insulin ([facility]) Stage 3 chronic kidney disease due to type 2 diabetes mellitus (HCC) ([facility]) Mixed hyperlipidemia ([facility]) Mixed hyperlipidemia Migraine without aura and without status migrainosus, not intractable ([facility]) Encounter for screening mammogram for malignant neoplasm of breast Colon cancer screening Special screening for malignant neoplasms, colon BMI 50.0-59.9, adult ([facility]) Heel pain, bilateral Type 2 diabetes mellitus without complication, without long-term current use of insulin ([facility])- Primary History of anuria Stage 3 chronic kidney disease due to type 2 diabetes mellitus (HCC) ([facility]) BMI 50.0-59.9, adult ([facility]) URIEL (obstructive sleep apnea) Obstructive sleep apnea (adult) (pediatric) Primary hypertension ([facility]) Unspecified essential hypertension Chronic diastolic heart failure ([facility]) Chronic diastolic heart failure Depression, unspecified depression type ([facility]) Type 2 diabetes mellitus without complication, without long-term current use of insulin ([facility])- Primary Stage 3 chronic kidney disease due to type 2 diabetes mellitus (HCC) ([facility]) BMI 50.0-59.9, adult ([facility]) Lower extremity edema Edema Dental infection- Primary Type 2 diabetes mellitus with stage 3 chronic kidney disease, without long-term current use of insulin, unspecified whether stage 3a or 3b CKD ([facility]) ([facility])- Primary Bipolar affective disorder, remission status unspecified ([facility]) Restless leg syndrome Restless legs syndrome (RLS) URIEL (obstructive sleep apnea) Obstructive sleep apnea (adult) (pediatric) Primary hypertension ([facility]) Unspecified essential hypertension Chronic diastolic heart failure ([facility]) Chronic diastolic heart failure Stage 3 chronic kidney disease due to type 2 diabetes mellitus ([facility]) ([facility]) Seasonal allergies Allergic rhinitis, cause unspecified BMI 50.0-59.9, adult ([facility]) Type 2 diabetes mellitus with stage 4 chronic kidney disease, without long-term current use of insulin ([facility])- Primary Type 2 diabetes mellitus without complication, without long-term current use of insulin ([facility]) Left lower quadrant abdominal pain- Primary Morbid (severe) obesity due to excess calories ([facility]) Body mass index (BMI) 45.0-49.9, adult ([facility]) Restless leg syndrome Restless legs syndrome (RLS) [...] disease, without long-term current use of insulin ([facility]) ([facility]) Class 3 severe obesity due to excess calories with serious comorbidity and body mass index (BMI) of 45.0 to 49.9 in adult ([facility]) Primary hypertension ([facility])- Primary Unspecified essential hypertension Spinal stenosis of lumbar region at multiple levels Restless leg syndrome Restless legs syndrome (RLS) URIEL (obstructive sleep apnea) Obstructive sleep apnea (adult) (pediatric) Coronary arteriosclerosis ([facility]) Coronary atherosclerosis of unspecified type of vessel, table mountain or graft Stage 3b chronic kidney disease (HCC) ([facility]) Swelling of both lower extremities Lower extremity edema Edema Type 2 diabetes mellitus with stage 3a chronic kidney disease, without long-term current use of insulin ([facility]) [facility] Class 3 severe obesity due to excess calories with serious comorbidity and body mass index (BMI) of 45.0 to 49.9 in adult ([facility]) Bipolar affective disorder, remission status unspecified ([facility] Generalized anxiety disorder ([facility]) Generalized anxiety disorder Vitamin D deficiency Vitamin B12 deficiency Other B-complex deficiencies H/O bariatric surgery Acute non-recurrent pansinusitis Restless leg syndrome Restless legs syndrome (RLS) documented in this encounter [facility] HealthcareEvaluation note* Diagnosis Left lower quadrant abdominal pain- Primary Morbid (severe) obesity due to excess calories ([facility]) Body mass index (BMI) 45.0-49.9, adult ([facility]) Restless leg syndrome Restless legs syndrome (RLS) Stage 3b chronic kidney disease (HCC) ([facility]) documented in this encounter [facility] HealthcareEvaluation note* [...] disease, without long-term current use of insulin ([facility])- Primary documented in this encounter [facility] HealthcareEvaluation note* Diagnosis Primary hypertension ([facility]) Unspecified essential hypertension documented in this encounter [facility] HealthcareEvaluation note* Diagnosis Primary hypertension ([facility])- Primary Unspecified essential hypertension Gastroesophageal reflux disease, unspecified whether esophagitis present Microscopic hematuria Lower extremity edema Edema Type 2 diabetes mellitus without complication, without long-term current use of insulin ([facility]) Stage 3 chronic kidney disease due to type 2 diabetes mellitus (HCC) ([facility] Mixed hyperlipidemia ([facility]) Mixed hyperlipidemia Migraine without aura and without status migrainosus, not intractable ([facility]) Encounter for screening mammogram for malignant neoplasm of breast Colon cancer screening Special screening for malignant neoplasms, colon BMI 50.0-59.9, adult ([facility]) Heel pain, bilateral Type 2 diabetes mellitus without complication, without long-term current use of insulin ([facility])- Primary History of anuria Stage 3 chronic kidney disease due to type 2 diabetes mellitus (HCC) ([facility]) BMI 50.0-59.9, adult ([facility]) URIEL (obstructive sleep apnea) Obstructive sleep apnea (adult) (pediatric) Primary hypertension ([facility] Unspecified essential hypertension Chronic diastolic heart failure ([facility]) Chronic diastolic heart failure Depression, unspecified depression type ([facility]) Type 2 diabetes mellitus without complication, without long-term current use of insulin ([facility])- Primary Stage 3 chronic kidney disease due to type 2 diabetes mellitus (HCC) ([facility]) BMI 50.0-59.9, adult ([facility]) Lower extremity edema Edema Dental infection- Primary Type 2 diabetes mellitus with stage 3 chronic kidney disease, without long-term current use of insulin, unspecified whether stage 3a or 3b CKD ([facility]) ([facility])- Primary Bipolar affective disorder, remission status unspecified ([facility]) Restless leg syndrome Restless legs syndrome (RLS) URIEL (obstructive sleep apnea) Obstructive sleep apnea (adult) (pediatric) Primary hypertension ([facility]) Unspecified essential hypertension Chronic diastolic heart failure ([facility] Chronic diastolic heart failure Stage 3 chronic kidney disease due to type 2 diabetes mellitus ([facility]) ([facility]) Seasonal allergies Allergic rhinitis, cause unspecified BMI 50.0-59.9, adult ([facility]) Type 2 diabetes mellitus with stage 4 chronic kidney disease, without long-term current use of insulin ([facility])- Primary Type 2 diabetes mellitus without complication, without long-term current use of insulin ([facility]) Left lower quadrant abdominal pain- Primary Morbid (severe) obesity due to excess calories ([facility]) Body mass index (BMI) 45.0-49.9, adult ([facility] [...] disease, without long-term current use of insulin ([facility]) ([facility]) Class 3 severe obesity due to excess calories with serious comorbidity and body mass index (BMI) of 45.0 to 49.9 in adult ([facility]) Primary hypertension ([facility])- Primary Unspecified essential hypertension Spinal stenosis of lumbar region at multiple levels Restless leg syndrome Restless legs syndrome (RLS) URIEL (obstructive sleep apnea) Obstructive sleep apnea (adult) (pediatric) Coronary arteriosclerosis ([facility]) Coronary atherosclerosis of unspecified type of vessel, [place] or graft Stage 3b chronic kidney disease (HCC) ([facility]) Swelling of both lower extremities Lower extremity edema Edema Type 2 diabetes mellitus with stage 3a chronic kidney disease, without long-term current use of insulin ([facility]) ([facility]) Class 3 severe obesity due to excess calories with serious comorbidity and body mass index (BMI) of 45.0 to 49.9 in adult ([facility]) Bipolar affective disorder, remission status unspecified ([facility] Generalized anxiety disorder ([facility] Generalized anxiety disorder Vitamin D deficiency Vitamin B12 deficiency Other B-complex deficiencies H/O bariatric surgery Acute non-recurrent pansinusitis Muscle spasm Spasm of muscle documented in this encounter [facility] HealthcareEvaluation note* Diagnosis Primary hypertension ([facility])- Primary Unspecified essential hypertension Gastroesophageal reflux disease, unspecified whether esophagitis present Microscopic hematuria Lower extremity edema Edema Type 2 diabetes mellitus without complication, without long-term current use of insulin ([facility]) Stage 3 chronic kidney disease due to type 2 diabetes mellitus (HCC) ([facility] Mixed hyperlipidemia ([facility]) Mixed hyperlipidemia Migraine without aura and without status migrainosus, not intractable ([facility]) Encounter for screening mammogram for malignant neoplasm of breast Colon cancer screening Special screening for malignant neoplasms, colon BMI 50.0-59.9, adult ([facility]) Heel pain, bilateral Type 2 diabetes mellitus without complication, without long-term current use of insulin ([facility])- Primary History of anuria Stage 3 chronic kidney disease due to type 2 diabetes mellitus (HCC) ([facility]) BMI 50.0-59.9, adult ([facility]) URIEL (obstructive sleep apnea) Obstructive sleep apnea (adult) (pediatric) Primary hypertension ([facility] Unspecified essential hypertension Chronic diastolic heart failure ([facility]) Chronic diastolic heart failure Depression, unspecified depression type ([facility]) Type 2 diabetes mellitus without complication, without long-term current use of insulin ([facility])- Primary Stage 3 chronic kidney disease due to type 2 diabetes mellitus (HCC) ([facility]) BMI 50.0-59.9, adult ([facility]) Lower extremity edema Edema Dental infection- Primary Type 2 diabetes mellitus with stage 3 chronic kidney disease, without long-term current use of insulin, unspecified whether stage 3a or 3b CKD (HCC) ([facility])- Primary Bipolar affective disorder, remission status unspecified ([facility]) Restless leg syndrome Restless legs syndrome (RLS) URIEL (obstructive sleep apnea) Obstructive sleep apnea (adult) (pediatric) Primary hypertension ([facility]) Unspecified essential hypertension Chronic diastolic heart failure ([facility] Chronic diastolic heart failure Stage 3 chronic kidney disease due to type 2 diabetes mellitus (HCC) ([facility]) Seasonal allergies Allergic rhinitis, cause unspecified BMI 50.0-59.9, adult ([facility]) Type 2 diabetes mellitus with stage 4 chronic kidney disease, without long-term current use of insulin ([facility])- Primary Type 2 diabetes mellitus without complication, without long-term current use of insulin ([facility]) Left lower quadrant abdominal pain- Primary Morbid (severe) obesity due to excess calories ([facility]) Body mass index (BMI) 45.0-49.9, adult ([facility]) Restless leg syndrome Restless legs syndrome (RLS) Stage 3b chronic kidney disease (HCC) ([facility]) Type 2 diabetes mellitus with other circulatory complications ([facility])- Primary Type 2 diabetes mellitus with stage 4 chronic kidney disease, without long-term current use of insulin ([facility]) Type 2 diabetes mellitus with stage 3a chronic kidney disease, without long-term current use of insulin ([facility]) ([facility]) Class 3 severe obesity due to excess calories with serious comorbidity and body mass index (BMI) of 45.0 to 49.9 in adult ([facility]) Primary hypertension ([facility])- Primary Unspecified essential hypertension Spinal stenosis of lumbar region at multiple levels Restless leg syndrome Restless legs syndrome (RLS) URIEL (obstructive sleep apnea) Obstructive sleep apnea (adult) (pediatric) Coronary arteriosclerosis ([facility]) Coronary atherosclerosis of unspecified type of vessel, [place] or graft Stage 3b chronic kidney disease (HCC) ([facility]) Swelling of both lower extremities Lower extremity edema Edema Type 2 diabetes mellitus with stage 3a chronic kidney disease, without long-term current use of insulin ([facility]) ([facility]) Class 3 severe obesity due to excess calories with serious comorbidity and body mass index (BMI) of 45.0 to 49.9 in adult ([facility]) Bipolar affective disorder, remission status unspecified ([facility] Generalized anxiety disorder ([facility] Generalized anxiety disorder Vitamin D deficiency Vitamin B12 deficiency Other B-complex deficiencies H/O bariatric surgery Acute non-recurrent pansinusitis Class 2 severe obesity due to excess calories with serious comorbidity and body mass index (BMI) of 38.0 to 38.9 in adult ([facility])- Primary Type 2 diabetes mellitus with other circulatory complications ([facility]) Type 2 diabetes mellitus with stage 3a chronic kidney disease, without long-term current use of insulin ([facility]) ([facility]) documented in this encounter [facility] HealthcareEvaluation note* [facility] Primary hypertension ([facility])- Primary Unspecified essential hypertension Gastroesophageal reflux disease, unspecified whether esophagitis present Microscopic hematuria Lower extremity edema Edema Type 2 diabetes mellitus without complication, without long-term current use of insulin Stage 3 chronic kidney disease due to type 2 diabetes mellitus (HCC) ([facility]) Mixed hyperlipidemia ([facility]) Mixed hyperlipidemia Migraine without aura and without status migrainosus, not intractable ([facility]) Encounter for screening mammogram for malignant neoplasm of breast Colon cancer screening Special screening for malignant neoplasms, colon BMI 50.0-59.9, adult ([facility]) Heel pain, bilateral Type 2 diabetes mellitus without complication, without long-term current use of insulin- Primary History of anuria Stage 3 chronic kidney disease due to type 2 diabetes mellitus ([facility]) ([facility]) BMI 50.0-59.9, adult ([facility]) URIEL (obstructive sleep apnea) Obstructive sleep apnea (adult) (pediatric) Primary hypertension ([facility] Unspecified essential hypertension Chronic diastolic heart failure ([facility]) Chronic diastolic heart failure Depression, unspecified depression type ([facility]) Type 2 diabetes mellitus without complication, without long-term current use of insulin- Primary Stage 3 chronic kidney disease due to type 2 diabetes mellitus (HCC) ([facility]) BMI 50.0-59.9, adult ([facility]) Lower extremity edema Edema Dental infection- Primary Type 2 diabetes mellitus with stage 3 chronic kidney disease, without long-term current use of insulin, unspecified whether stage 3a or 3b CKD (HCC) ([facility])- Primary Bipolar affective disorder, remission status unspecified ([facility]) Restless leg syndrome Restless legs syndrome (RLS) URIEL (obstructive sleep apnea) Obstructive sleep apnea (adult) (pediatric) Primary hypertension ([facility]) Unspecified essential hypertension Chronic diastolic heart failure ([facility]) Chronic diastolic heart failure Stage 3 chronic kidney disease due to type 2 diabetes mellitus (HCC) ([facility]) Seasonal allergies Allergic rhinitis, cause unspecified BMI 50.0-59.9, adult ([facility]) Type 2 diabetes mellitus with stage 4 chronic kidney disease, without long-term current use of insulin ([facility])- Primary Type 2 diabetes mellitus without complication, without long-term current use of insulin Left lower quadrant abdominal pain- Primary Morbid (severe) obesity due to excess calories ([facility]) Body mass index (BMI) 45.0-49.9, adult ([facility]) Restless leg syndrome Restless legs syndrome (RLS) Stage 3b chronic kidney disease (HCC) ([facility]) Type 2 diabetes mellitus with other circulatory complications- Primary Type 2 diabetes mellitus with stage 4 chronic kidney disease, without long-term current use of insulin ([facility] [facility] Type 2 diabetes mellitus with stage 3a chronic kidney disease, without long-term current use of insulin ([facility]) ([facility]) Class 3 severe obesity due to excess calories with serious comorbidity and body mass index (BMI) of 45.0 to 49.9 in adult Primary hypertension ([facility])- Primary Unspecified essential hypertension Spinal stenosis of lumbar region at multiple levels Restless leg syndrome Restless legs syndrome (RLS) URIEL (obstructive sleep apnea) Obstructive sleep apnea (adult) (pediatric) Coronary arteriosclerosis ([facility]) Coronary atherosclerosis of unspecified type of vessel, table mountain or graft Stage 3b chronic kidney disease (HCC) ([facility]) Swelling of both lower extremities Lower extremity edema Edema Type 2 diabetes mellitus with stage 3a chronic kidney disease, without long-term current use of insulin ([facility]) ([facility]) Class 3 severe obesity due to excess calories with serious comorbidity and body mass index (BMI) of 45.0 to 49.9 in adult Bipolar affective disorder, remission status unspecified ([facility]) Generalized anxiety disorder ([facility]) Generalized anxiety disorder Vitamin D deficiency Vitamin B12 deficiency Other B-complex deficiencies H/O bariatric surgery Acute non-recurrent pansinusitis Class 2 severe obesity due to excess calories with serious comorbidity and body mass index (BMI) of 38.0 to 38.9 in adult ([facility])- Primary Type 2 diabetes mellitus with other circulatory complications Type 2 diabetes mellitus with stage 3a chronic kidney disease, without long-term current use of insulin ([facility]) ([facility]) Acute foot pain, left- Primary Acute left ankle pain documented in this encounter [facility] HealthcareEvaluation note* Diagnosis Primary hypertension ([facility])- Primary Unspecified essential hypertension Gastroesophageal reflux disease, unspecified whether esophagitis present Microscopic hematuria Lower extremity edema Edema Type 2 diabetes mellitus without complication, without long-term current use of insulin Stage 3 chronic kidney disease due to type 2 diabetes mellitus (HCC) ([facility]) Mixed hyperlipidemia ([facility]) Mixed hyperlipidemia Migraine without aura and without status migrainosus, not intractable ([facility]) Encounter for screening mammogram for malignant neoplasm of breast Colon cancer screening Special screening for malignant neoplasms, colon BMI 50.0-59.9, adult ([facility]) Heel pain, bilateral Type 2 diabetes mellitus without complication, without long-term current use of insulin- Primary History of anuria Stage 3 chronic kidney disease due to type 2 diabetes mellitus ([facility]) ([facility]) BMI 50.0-59.9, adult ([facility]) URIEL (obstructive sleep apnea) Obstructive sleep apnea (adult) (pediatric) Primary hypertension ([facility] Unspecified essential hypertension Chronic diastolic heart failure ([facility]) Chronic diastolic heart failure Depression, unspecified depression type ([facility]) Type 2 diabetes mellitus without complication, without long-term current use of insulin- Primary Stage 3 chronic kidney disease due to type 2 diabetes mellitus (HCC) ([facility]) BMI 50.0-59.9, adult ([facility]) Lower extremity edema Edema Dental infection- Primary Type 2 diabetes mellitus with stage 3 chronic kidney disease, without long-term current use of insulin, unspecified whether stage 3a or 3b CKD (HCC) ([facility])- Primary Bipolar affective disorder, remission status unspecified ([facility]) Restless leg syndrome Restless legs syndrome (RLS) URIEL (obstructive sleep apnea) Obstructive sleep apnea (adult) (pediatric) Primary hypertension ([facility]) Unspecified essential hypertension Chronic diastolic heart failure ([facility]) Chronic diastolic heart failure Stage 3 chronic kidney disease due to type 2 diabetes mellitus (HCC) ([facility]) Seasonal allergies Allergic rhinitis, cause unspecified BMI 50.0-59.9, adult ([facility]) Type 2 diabetes mellitus with stage 4 chronic kidney disease, without long-term current use of insulin ([facility])- Primary Type 2 diabetes mellitus without complication, without long-term current use of insulin Left lower quadrant abdominal pain- Primary Morbid (severe) obesity due to excess calories ([facility]) Body mass index (BMI) 45.0-49.9, adult ([facility]) Restless leg syndrome Restless legs syndrome (RLS) Stage 3b chronic kidney disease (HCC) ([facility]) Type 2 diabetes mellitus with other circulatory complications- Primary Type 2 diabetes mellitus with stage 4 chronic kidney disease, without long-term current use of insulin ([facility]) Type 2 diabetes mellitus with stage 3a chronic kidney disease, without long-term current use of insulin ([facility]) ([facility]) Class 3 severe obesity due to excess calories with serious comorbidity and body mass index (BMI) of 45.0 to 49.9 in adult Primary hypertension ([facility])- Primary Unspecified essential hypertension Spinal stenosis of lumbar region at multiple levels Restless leg syndrome Restless legs syndrome (RLS) URIEL (obstructive sleep apnea) Obstructive sleep apnea (adult) (pediatric) Coronary arteriosclerosis ([facility]) Coronary atherosclerosis of unspecified type of vessel, [place] or graft Stage 3b chronic kidney disease (HCC) ([facility]) Swelling of both lower extremities Lower extremity edema Edema Type 2 diabetes mellitus with stage 3a chronic kidney disease, without long-term current use of insulin ([facility]) ([facility]) Class 3 severe obesity due to excess calories with serious comorbidity and body mass index (BMI) of 45.0 to 49.9 in adult Bipolar affective disorder, remission status unspecified ([facility]) Generalized anxiety disorder ([facility]) Generalized anxiety disorder Vitamin D deficiency Vitamin B12 deficiency Other B-complex deficiencies H/O bariatric surgery Acute non-recurrent pansinusitis Class 2 severe obesity due to excess calories with serious comorbidity and body mass index (BMI) of 38.0 to 38.9 in adult ([facility])- Primary Type 2 diabetes mellitus with other circulatory complications Type 2 diabetes mellitus with stage 3a chronic kidney disease, without long-term current use of insulin (HCC) ([facility]) Restless leg syndrome Restless legs syndrome (RLS) documented in this encounter [facility] HealthcareEvaluation note* Diagnosis Primary hypertension ([facility])- Primary Unspecified essential hypertension Gastroesophageal reflux disease, [...] Unspecified essential hypertension Chronic diastolic heart failure ([facility]) Chronic diastolic heart failure Depression, unspecified depression [...] Obstructive sleep apnea (adult) (pediatric) Primary hypertension ([facility]) Unspecified essential hypertension Chronic diastolic heart failure [...] (RLS) Stage 3b chronic kidney disease (HCC) ([facility]) Type 2 diabetes mellitus with other circulatory complications- Primary Type 2 diabetes mellitus with stage 4 chronic kidney disease, without long-term current use of insulin ([facility]) Type 2 diabetes mellitus with stage 3a chronic kidney disease, without long-term current use of insulin (HCC) ([facility]) Class 3 severe obesity due to excess calories with serious comorbidity and body mass index (BMI) of 45.0 to 49.9 in adult Primary hypertension ([facility])- Primary Unspecified essential hypertension Spinal stenosis of lumbar region at multiple levels Restless leg syndrome Restless legs syndrome (RLS) URIEL (obstructive sleep apnea) Obstructive sleep apnea (adult) (pediatric) Coronary arteriosclerosis ([facility]) Coronary atherosclerosis of unspecified type of vessel, [place] or graft Stage 3b chronic kidney disease (HCC) ([facility]) Swelling of both lower extremities Lower extremity edema Edema Type 2 diabetes mellitus with stage 3a chronic kidney disease, without long-term current use of insulin (HCC) ([facility]) Class 3 severe obesity due to excess calories with serious comorbidity and body mass index (BMI) of 45.0 to 49.9 in adult Bipolar affective disorder, remission status unspecified ([facility]) Generalized anxiety disorder ([facility]) Generalized anxiety disorder Vitamin D deficiency Vitamin B12 deficiency Other B-complex deficiencies H/O bariatric surgery Acute non-recurrent pansinusitis Class 2 severe obesity due to excess calories with serious comorbidity and body mass index (BMI) of 38.0 to 38.9 in adult ([facility])- Primary Type 2 diabetes mellitus with other circulatory complications Type 2 diabetes mellitus with stage 3a chronic kidney disease, without long-term current use of insulin (HCC) ([facility] Primary hypertension ([facility]) Unspecified essential hypertension documented in this encounter [facility] HealthcareEvaluation note* Diagnosis Primary hypertension ([facility])- Primary Unspecified essential hypertension Gastroesophageal reflux disease, unspecified whether esophagitis present Microscopic hematuria Lower extremity edema Edema Type 2 diabetes mellitus without complication, without long-term current use of insulin Stage 3 chronic kidney disease due to type 2 diabetes mellitus (HCC) ([facility] Mixed hyperlipidemia ([facility]) Mixed hyperlipidemia Migraine without aura and without status migrainosus, not intractable ([facility]) Encounter for screening mammogram for malignant neoplasm [...] Obstructive sleep apnea (adult) (pediatric) Primary hypertension ([facility]) Unspecified essential hypertension Chronic diastolic heart failure ([facility]) Chronic diastolic heart failure Depression, unspecified depression [...] unspecified whether stage 3a or 3b CKD ([facility]) ([facility])- Primary Bipolar affective disorder, remission status unspecified ([facility]) Restless leg syndrome Restless legs syndrome (RLS) URIEL (obstructive sleep apnea) Obstructive sleep apnea (adult) (pediatric) Primary hypertension ([facility]) Unspecified essential hypertension Chronic diastolic heart failure ([facility]) Chronic diastolic heart failure Stage 3 chronic kidney disease due to type 2 diabetes mellitus ([facility]) ([facility]) Seasonal allergies [...] Morbid (severe) obesity due to excess calories ([facility]) Body mass index (BMI) 45.0-49.9, adult ([facility] [...] 45.0 to 49.9 in adult Primary hypertension ([facility])- Primary Unspecified essential hypertension Spinal stenosis of lumbar region at multiple levels Restless leg syndrome Restless legs syndrome (RLS) URIEL (obstructive sleep apnea) Obstructive sleep apnea (adult) (pediatric) Coronary arteriosclerosis ([facility]) Coronary atherosclerosis of unspecified type of vessel, [place] or graft Stage 3b chronic kidney disease (HCC) ([facility]) Swelling of both lower extremities Lower extremity edema Edema Type 2 diabetes mellitus with stage 3a chronic kidney disease, without long-term current use of insulin (HCC) ([facility]) Class 3 severe obesity due to excess calories with serious comorbidity and body mass index (BMI) of 45.0 to 49.9 in adult Bipolar affective disorder, remission status unspecified ([facility]) Generalized anxiety disorder ([facility]) Generalized anxiety disorder Vitamin D deficiency Vitamin B12 deficiency Other B-complex deficiencies H/O bariatric surgery Acute non-recurrent pansinusitis Class 2 severe obesity due to excess calories with serious comorbidity and body mass index (BMI) of 38.0 to 38.9 in adult ([facility])- Primary Type 2 diabetes mellitus with other circulatory complications Type 2 diabetes mellitus with stage 3a chronic kidney disease, without long-term current use of insulin (HCC) ([facility]) Muscle spasm Spasm of muscle documented in this encounter [facility] HealthcareEvaluation note* Diagnosis Primary hypertension ([facility])- Primary Unspecified essential hypertension Gastroesophageal reflux disease, unspecified whether esophagitis present Microscopic hematuria Lower extremity edema Edema Type 2 diabetes mellitus without complication, without long-term current use of insulin Stage 3 chronic kidney disease due to type 2 diabetes mellitus (HCC) ([facility]) Mixed hyperlipidemia ([facility]) Mixed hyperlipidemia Migraine without aura and without status migrainosus, not intractable ([facility]) Encounter for screening mammogram for malignant neoplasm of breast Colon cancer screening Special screening for malignant neoplasms, colon BMI 50.0-59.9, adult ([facility]) Heel pain, bilateral Type 2 diabetes mellitus without complication, without long-term current use of insulin- Primary History of anuria Stage 3 chronic kidney disease due to type 2 diabetes mellitus (HCC) ([facility]) BMI 50.0-59.9, adult ([facility]) URIEL (obstructive sleep apnea) Obstructive sleep apnea (adult) (pediatric) Primary hypertension ([facility] Unspecified essential hypertension Chronic diastolic heart failure ([facility]) Chronic diastolic heart failure Depression, unspecified depression type ([facility]) Type 2 diabetes mellitus without complication, without long-term current use of insulin- Primary Stage 3 chronic kidney disease due to type 2 diabetes mellitus (HCC) ([facility]) BMI 50.0-59.9, adult ([facility]) Lower extremity edema Edema Type 2 diabetes mellitus with stage 3 chronic kidney disease, without long-term current use of insulin, unspecified whether stage 3a or 3b CKD (HCC) ([facility])- Primary Bipolar affective disorder, remission status unspecified ([facility]) Restless leg syndrome Restless legs syndrome (RLS) URIEL (obstructive sleep apnea) Obstructive sleep apnea (adult) (pediatric) Primary hypertension ([facility]) Unspecified essential hypertension Chronic diastolic heart failure ([facility]) Chronic diastolic heart failure Stage 3 chronic kidney disease due to type 2 diabetes mellitus ([facility]) ([facility]) Seasonal allergies [...] Morbid (severe) obesity due to excess calories ([facility]) Body mass index (BMI) 45.0-49.9, adult ([facility]) Restless leg syndrome Restless legs syndrome (RLS) Stage 3b chronic kidney disease (HCC) ([facility]) Type 2 diabetes mellitus with other circulatory complications- Primary Type 2 diabetes mellitus with stage 4 chronic kidney disease, without long-term current use of insulin ([facility]) Type 2 diabetes mellitus with stage 3a chronic kidney disease, without long-term current use of insulin ([facility]) ([facility]) Class 3 severe obesity due to excess calories with serious comorbidity and body mass index (BMI) of 45.0 to 49.9 in adult Primary hypertension ([facility])- Primary Unspecified essential hypertension Spinal stenosis of lumbar region at multiple levels Restless leg syndrome Restless legs syndrome (RLS) URIEL (obstructive sleep apnea) Obstructive sleep apnea (adult) (pediatric) Coronary arteriosclerosis ([facility]) Coronary atherosclerosis of unspecified type of vessel, [place] or graft Stage 3b chronic kidney disease (HCC) ([facility]) Swelling of both lower extremities Lower extremity edema Edema Type 2 diabetes mellitus with stage 3a chronic kidney disease, without long-term current use of insulin (HCC) ([facility]) Class 3 severe obesity due to excess calories with serious comorbidity and body mass index (BMI) of 45.0 to 49.9 in adult Bipolar affective disorder, remission status unspecified ([facility]) Generalized anxiety disorder ([facility]) Generalized anxiety disorder Vitamin D deficiency Vitamin B12 deficiency Other B-complex deficiencies H/O bariatric surgery Acute non-recurrent pansinusitis Class 2 severe obesity due to excess calories with serious comorbidity and body mass index (BMI) of 38.0 to 38.9 in adult ([facility])- Primary Type 2 diabetes mellitus with other circulatory complications Type 2 diabetes mellitus with stage 3a chronic kidney disease, without long-term current use of insulin ([facility]) ([facility]) Encounter for wellness examination in adult- Primary Encounter for screening mammogram for malignant neoplasm of breast Primary hypertension ([facility]) Unspecified essential hypertension Chronic diastolic heart failure ([facility] Chronic diastolic heart failure Stage 3b chronic kidney disease (HCC) ([facility]) Class 2 severe obesity due to excess calories with serious comorbidity and body mass index (BMI) of 38.0 to 38.9 in adult ([facility]) Type 2 diabetes mellitus with stage 3a chronic kidney disease, without long-term current use of insulin (HCC) ([facility] Mixed hyperlipidemia ([facility]) Mixed hyperlipidemia documented in this encounter [facility] HealthcareEvaluation note* Diagnosis Primary hypertension ([facility])- Primary Unspecified essential hypertension Gastroesophageal reflux disease, unspecified whether esophagitis present Microscopic hematuria Lower extremity edema Edema Type 2 diabetes mellitus without complication, without long-term current use of insulin Stage 3 chronic kidney disease due to type 2 diabetes mellitus (HCC) ([facility]) Mixed hyperlipidemia ([facility]) Mixed hyperlipidemia Migraine without aura and without status migrainosus, not intractable ([facility]) Encounter for screening mammogram for malignant neoplasm of breast Colon cancer screening Special screening for malignant neoplasms, colon BMI 50.0-59.9, adult ([facility]) Heel pain, bilateral Type 2 diabetes mellitus without complication, without long-term current use of insulin- Primary History of anuria Stage 3 chronic kidney disease due to type 2 diabetes mellitus (HCC) ([facility]) BMI 50.0-59.9, adult ([facility] [place]) URIEL (obstructive sleep apnea) Obstructive sleep apnea (adult) (pediatric) Primary hypertension ([facility]) Unspecified essential hypertension Chronic diastolic heart failure ([facility]) Chronic diastolic heart failure Depression, unspecified depression type ([facility] [place]) Type 2 diabetes mellitus without complication, without long-term current use of insulin- Primary Stage 3 chronic kidney disease due to type 2 diabetes mellitus ([facility]) ([facility]) BMI 50.0-59.9, adult ([facility] [place]) Lower extremity edema Edema Type 2 diabetes mellitus with stage 3 chronic kidney disease, without long-term current use of insulin, unspecified whether stage 3a or 3b CKD ([facility]) ([facility] [place])- Primary Bipolar affective disorder, remission status unspecified ([facility] [place]) Restless leg syndrome Restless legs syndrome (RLS) URIEL (obstructive sleep apnea) Obstructive sleep apnea (adult) (pediatric) Primary hypertension ([facility]) Unspecified essential hypertension Chronic diastolic heart failure ([facility]) Chronic diastolic heart failure Stage 3 chronic kidney disease due to type 2 diabetes mellitus ([facility]) ([facility] [place]) Seasonal allergies [...] Morbid (severe) obesity due to excess calories ([facility]) Body mass index (BMI) 45.0-49.9, adult ([facility] [...] disease, without long-term current use of insulin ([facility]) ([facility] [place]) Class 3 severe obesity due to excess calories with serious comorbidity and body mass index (BMI) of 45.0 to 49.9 in adult Primary hypertension ([facility])- Primary Unspecified essential hypertension Spinal stenosis of lumbar region at multiple levels Restless leg syndrome Restless legs syndrome (RLS) URIEL (obstructive sleep apnea) Obstructive sleep apnea (adult) (pediatric) Coronary arteriosclerosis ([facility]) Coronary atherosclerosis of unspecified type of vessel, [place] or graft Stage 3b chronic kidney disease (HCC) ([facility]) Swelling of both lower extremities Lower extremity edema Edema Type 2 diabetes mellitus with stage 3a chronic kidney disease, without long-term current use of insulin (HCC) ([facility]) Class 3 severe obesity due to excess calories with serious comorbidity and body mass index (BMI) of 45.0 to 49.9 in adult Bipolar affective disorder, remission status unspecified ([facility]) Generalized anxiety disorder ([facility]) Generalized anxiety disorder Vitamin D deficiency Vitamin B12 deficiency Other B-complex deficiencies H/O bariatric surgery Acute non-recurrent pansinusitis Class 2 severe obesity due to excess calories with serious comorbidity and body mass index (BMI) of 38.0 to 38.9 in adult ([facility])- Primary Type 2 diabetes mellitus with other circulatory complications Type 2 diabetes mellitus with stage 3a chronic kidney disease, without long-term current use of insulin (HCC) ([facility]) Encounter for wellness examination in adult- Primary Encounter for screening mammogram for malignant neoplasm of breast Primary hypertension ([facility]) Unspecified essential hypertension Chronic diastolic heart failure ([facility] Chronic diastolic heart failure Stage 3b chronic kidney disease (HCC) ([facility]) Class 2 severe obesity due to excess calories with serious comorbidity and body mass index (BMI) of 38.0 to 38.9 in adult ([facility]) Type 2 diabetes mellitus with stage 3a chronic kidney disease, without long-term current use of insulin (HCC) ([facility]) Mixed hyperlipidemia ([facility]) Mixed hyperlipidemia Restless leg syndrome Restless legs syndrome (RLS) documented in this encounter [facility] HealthcareEvaluation note* Diagnosis Primary hypertension- Primary Unspecified [...] for malignant neoplasms, colon BMI 50.0-59.9, adult ([facility]) Heel pain, bilateral Type 2 diabetes mellitus without complication, without long-term current use of insulin ([facility])- Primary History of anuria Stage 3 chronic kidney disease due to type 2 diabetes mellitus ([facility]) BMI 50.0-59.9, adult ([facility]) URIEL (obstructive sleep apnea) Obstructive sleep apnea (adult) (pediatric) Primary hypertension Unspecified essential hypertension Chronic diastolic heart failure ([facility]) Chronic diastolic heart failure Depression, unspecified depression type Type 2 diabetes mellitus without complication, without long-term current use of insulin ([facility])- Primary Stage 3 chronic kidney disease due to type 2 diabetes mellitus ([facility]) BMI 50.0-59.9, adult ([facility] [place]) Lower extremity edema Edema Type 2 diabetes mellitus with stage 3 chronic kidney disease, without long-term current use of insulin, unspecified whether stage 3a or 3b CKD ([facility])- Primary Bipolar affective disorder, remission status unspecified ([facility]) Restless leg syndrome Restless legs syndrome (RLS) URIEL (obstructive sleep apnea) Obstructive sleep apnea (adult) (pediatric) Primary hypertension Unspecified essential hypertension Chronic diastolic heart failure ([facility]) Chronic diastolic heart failure Stage 3 chronic kidney disease due to type 2 diabetes mellitus ([facility]) Seasonal allergies Allergic rhinitis, cause unspecified BMI 50.0-59.9, adult ([facility] [place]) Type 2 diabetes mellitus with stage 4 chronic kidney disease, without long-term current use of insulin ([facility])- Primary Type 2 diabetes mellitus without complication, without long-term current use of insulin ([facility]) Left lower quadrant abdominal pain- Primary Morbid (severe) obesity due to excess calories ([facility] [place]) Body mass index (BMI) 45.0-49.9, adult ([facility] [place]) Restless leg syndrome Restless legs syndrome (RLS) Stage 3b chronic kidney disease ([facility] [place]) Type 2 diabetes mellitus with other circulatory complications ([facility])- Primary Type 2 diabetes mellitus with stage 4 chronic kidney disease, without long-term current use of insulin ([facility]) Type 2 diabetes mellitus with stage 3a chronic kidney disease, without long-term current use of insulin ([facility]) Class 3 severe obesity due to excess calories with serious comorbidity and body mass index (BMI) of 45.0 to 49.9 in adult ([facility] [place]) Primary hypertension- Primary Unspecified essential hypertension Spinal stenosis of lumbar region at multiple levels Restless leg syndrome Restless legs syndrome (RLS) URIEL (obstructive sleep apnea) Obstructive sleep apnea (adult) (pediatric) Coronary arteriosclerosis Coronary atherosclerosis of unspecified type of vessel, [place] or graft Stage 3b chronic kidney disease ([facility] [place]) Swelling of both lower extremities Lower extremity edema Edema Type 2 diabetes mellitus with stage 3a chronic kidney disease, without long-term current use of insulin ([facility]) Class 3 severe obesity due to excess calories with serious comorbidity and body mass index (BMI) of 45.0 to 49.9 in adult ([facility] [place]) Bipolar affective disorder, remission status unspecified ([facility]) Generalized anxiety disorder Generalized anxiety disorder Vitamin D deficiency Vitamin B12 deficiency Other B-complex deficiencies H/O bariatric surgery Acute non-recurrent pansinusitis Class 2 severe obesity due to excess calories with serious comorbidity and body mass index (BMI) of 38.0 to 38.9 in adult ([facility] [place])- Primary Type 2 diabetes mellitus with other circulatory complications ([facility]) Type 2 diabetes mellitus with stage 3a chronic kidney disease, without long-term current use of insulin ([facility]) Encounter for wellness examination in adult- Primary Encounter for screening mammogram for malignant neoplasm of breast Primary hypertension Unspecified essential hypertension Chronic diastolic heart failure ([facility]) Chronic diastolic heart failure Stage 3b chronic kidney disease ([facility] [place]) Class 2 severe obesity due to excess calories with serious comorbidity and body mass index (BMI) of 38.0 to 38.9 in adult ([facility] [place]) Type 2 diabetes mellitus with stage 3a chronic kidney disease, without long-term current use of insulin ([facility]) Mixed hyperlipidemia Mixed hyperlipidemia Type 2 diabetes mellitus with other circulatory complications ([facility])- Primary Type 2 diabetes mellitus with stage 3a chronic kidney disease, without long-term current use of insulin (HCC) Type 2 diabetes mellitus with stage 4 chronic kidney disease, without long-term current use of insulin ([facility]) Type 2 diabetes mellitus without complication, without long-term current use of insulin ([facility]) Class 2 severe obesity due to excess calories with serious comorbidity and body mass index (BMI) of 36.0 to 36.9 in adult ([facility] [place]) documented in this encounter [facility] HealthcareEvaluation note* Diagnosis Primary hypertension- Primary Unspecified essential hypertension Gastroesophageal reflux disease, unspecified whether esophagitis present Microscopic hematuria Lower extremity edema Edema Type 2 diabetes mellitus without complication, without long-term current use of insulin ([facility]) Stage 3 chronic kidney disease due to type 2 diabetes mellitus ([facility]) Mixed hyperlipidemia Mixed hyperlipidemia Migraine without aura and without status migrainosus, not intractable Encounter for screening mammogram for malignant neoplasm of breast Colon cancer screening Special screening for malignant neoplasms, colon BMI 50.0-59.9, adult ([facility] [place]) Heel pain, bilateral Type 2 diabetes mellitus without complication, without long-term current use of insulin ([facility])- Primary History of anuria Stage 3 chronic kidney disease due to type 2 diabetes mellitus ([facility]) BMI 50.0-59.9, adult ([facility] [place]) URIEL (obstructive sleep apnea) Obstructive sleep apnea (adult) (pediatric) Primary hypertension Unspecified essential hypertension Chronic diastolic heart failure ([facility]) Chronic diastolic heart failure Depression, unspecified depression type Type 2 diabetes mellitus without complication, without long-term current use of insulin ([facility])- Primary Stage 3 chronic kidney disease due to type 2 diabetes mellitus ([facility]) BMI 50.0-59.9, adult ([facility] [place]) Lower extremity edema Edema Type 2 diabetes mellitus with stage 3 chronic kidney disease, without long-term current use of insulin, unspecified whether stage 3a or 3b CKD ([facility])- Primary Bipolar affective disorder, remission status unspecified ([facility]) Restless leg syndrome Restless legs syndrome (RLS) URIEL (obstructive sleep apnea) Obstructive sleep apnea (adult) (pediatric) Primary hypertension Unspecified essential hypertension Chronic diastolic heart failure ([facility]) Chronic diastolic heart failure Stage 3 chronic kidney disease due to type 2 diabetes mellitus ([facility]) Seasonal allergies Allergic rhinitis, cause unspecified BMI 50.0-59.9, adult ([facility] [place]) Type 2 diabetes mellitus with stage 4 chronic kidney disease, without long-term current use of insulin ([facility])- Primary Type 2 diabetes mellitus without complication, without long-term current use of insulin ([facility]) Left lower quadrant abdominal pain- Primary Morbid (severe) obesity due to excess calories ([facility] [place]) Body mass index (BMI) 45.0-49.9, adult ([facility] [place]) Restless leg syndrome Restless legs syndrome (RLS) Stage 3b chronic kidney disease ([facility] [place]) Type 2 diabetes mellitus with other circulatory complications ([facility])- Primary Type 2 diabetes mellitus with stage 4 chronic kidney disease, without long-term current use of insulin ([facility]) Type 2 diabetes mellitus with stage 3a chronic kidney disease, without long-term current use of insulin ([facility]) Class 3 severe obesity due to excess calories with serious comorbidity and body mass index (BMI) of 45.0 to 49.9 in adult ([facility] [place]) Primary hypertension- Primary Unspecified essential hypertension Spinal stenosis of lumbar region at multiple levels Restless leg syndrome Restless legs syndrome (RLS) URIEL (obstructive sleep apnea) Obstructive sleep apnea (adult) (pediatric) Coronary arteriosclerosis Coronary atherosclerosis of unspecified type of vessel, [place] or graft Stage 3b chronic kidney disease ([facility]) Swelling of both lower extremities Lower extremity edema Edema Type 2 diabetes mellitus with stage 3a chronic kidney disease, without long-term current use of insulin ([facility]) Class 3 severe obesity due to excess calories with serious comorbidity and body mass index (BMI) of 45.0 to 49.9 in adult ([facility] [place]) Bipolar affective disorder, remission status unspecified ([facility]) Generalized anxiety disorder Generalized anxiety disorder Vitamin D deficiency Vitamin B12 deficiency Other B-complex deficiencies H/O bariatric surgery Acute non-recurrent pansinusitis Class 2 severe obesity due to excess calories with serious comorbidity and body mass index (BMI) of 38.0 to 38.9 in adult ([facility] [place])- Primary Type 2 diabetes mellitus with other circulatory complications ([facility]) Type 2 diabetes mellitus with stage 3a chronic kidney disease, without long-term current use of insulin ([facility]) Encounter for wellness examination in adult- Primary Encounter for screening mammogram for malignant neoplasm of breast Primary hypertension Unspecified essential hypertension Chronic diastolic heart failure (HCC) Chronic diastolic heart failure Stage 3b chronic kidney disease ([facility] [place]) Class 2 severe obesity due to excess calories with serious comorbidity and body mass index (BMI) of 38.0 to 38.9 in adult ([facility] [place]) Type 2 diabetes mellitus with stage 3a chronic kidney disease, without long-term current use of insulin ([facility]) Mixed hyperlipidemia Mixed hyperlipidemia Type 2 diabetes mellitus with other circulatory complications ([facility])- Primary Type 2 diabetes mellitus with stage 3a chronic kidney disease, without long-term current use of insulin ([facility]) Type 2 diabetes mellitus with stage 4 chronic kidney disease, without long-term current use of insulin ([facility]) Type 2 diabetes mellitus without complication, without long-term current use of insulin ([facility]) Class 2 severe obesity due to excess calories with serious comorbidity and body mass index (BMI) of 36.0 to 36.9 in adult ([facility] [place]) Muscle spasm Spasm of muscle documented in this encounter [facility] HealthcareEvaluation note* Diagnosis Primary hypertension- Primary Unspecified essential hypertension Gastroesophageal reflux disease, unspecified whether esophagitis present Microscopic hematuria Lower extremity edema Edema Type 2 diabetes mellitus without complication, without long-term current use of insulin ([facility]) Stage 3 chronic kidney disease due to type 2 diabetes mellitus ([facility]) Mixed hyperlipidemia Mixed hyperlipidemia Migraine without aura and without status migrainosus, not intractable Encounter for screening mammogram for malignant neoplasm of breast Colon cancer screening Special screening for malignant neoplasms, colon BMI 50.0-59.9, adult ([facility] [place]) Heel pain, bilateral Type 2 diabetes mellitus without complication, without long-term current use of insulin ([facility])- Primary History of anuria Stage 3 chronic kidney disease due to type 2 diabetes mellitus ([facility]) BMI 50.0-59.9, adult ([facility] [place]) URIEL (obstructive sleep apnea) Obstructive sleep apnea (adult) (pediatric) Primary hypertension Unspecified essential hypertension Chronic diastolic heart failure ([facility]) Chronic diastolic heart failure Depression, unspecified depression type Type 2 diabetes mellitus without complication, without long-term current use of insulin ([facility])- Primary Stage 3 chronic kidney disease due to type 2 diabetes mellitus ([facility]) BMI 50.0-59.9, adult ([facility] [place]) Lower extremity edema Edema Type 2 diabetes mellitus with stage 3 chronic kidney disease, without long-term current use of insulin, unspecified whether stage 3a or 3b CKD ([facility])- Primary Bipolar affective disorder, remission status unspecified ([facility]) Restless leg syndrome Restless legs syndrome (RLS) URIEL (obstructive sleep apnea) Obstructive sleep apnea (adult) (pediatric) Primary hypertension Unspecified essential hypertension Chronic diastolic heart failure (HCC) Chronic diastolic heart failure Stage 3 chronic kidney disease due to type 2 diabetes mellitus ([facility]) Seasonal allergies Allergic rhinitis, cause unspecified BMI 50.0-59.9, adult ([facility] [place]) Type 2 diabetes mellitus with stage 4 chronic kidney disease, without long-term current use of insulin ([facility])- Primary Type 2 diabetes mellitus without complication, without long-term current use of insulin ([facility]) Left lower quadrant abdominal pain- Primary Morbid (severe) obesity due to excess calories ([facility] [place]) Body mass index (BMI) 45.0-49.9, adult ([facility] [place]) Restless leg syndrome Restless legs syndrome (RLS) Stage 3b chronic kidney disease ([facility] [place]) Type 2 diabetes mellitus with other circulatory complications ([facility])- Primary Type 2 diabetes mellitus with stage 4 chronic kidney disease, without long-term current use of insulin ([facility]) Type 2 diabetes mellitus with stage 3a chronic kidney disease, without long-term current use of insulin ([facility]) Class 3 severe obesity due to excess calories with serious comorbidity and body mass index (BMI) of 45.0 to 49.9 in adult ([facility] [place]) Primary hypertension- Primary Unspecified essential hypertension Spinal stenosis of lumbar region at multiple levels Restless leg syndrome Restless legs syndrome (RLS) URIEL (obstructive sleep apnea) Obstructive sleep apnea (adult) (pediatric) Coronary arteriosclerosis Coronary atherosclerosis of unspecified type of vessel, [place] or graft Stage 3b chronic kidney disease ([facility] [place]) Swelling of both lower extremities Lower extremity edema Edema Type 2 diabetes mellitus with stage 3a chronic kidney disease, without long-term current use of insulin ([facility]) Class 3 severe obesity due to excess calories with serious comorbidity and body mass index (BMI) of 45.0 to 49.9 in adult ([facility] [place]) Bipolar affective disorder, remission status unspecified ([facility]) Generalized anxiety disorder Generalized anxiety disorder Vitamin D deficiency Vitamin B12 deficiency Other B-complex deficiencies H/O bariatric surgery Acute non-recurrent pansinusitis Class 2 severe obesity due to excess calories with serious comorbidity and body mass index (BMI) of 38.0 to 38.9 in adult ([facility] Primary Type 2 diabetes mellitus with other circulatory complications ([facility]) Type 2 diabetes mellitus with stage 3a chronic kidney disease, without long-term current use of insulin ([facility]) Encounter for wellness examination in adult- Primary Encounter for screening mammogram for malignant neoplasm of breast Primary hypertension Unspecified essential hypertension Chronic diastolic heart failure (HCC) Chronic diastolic heart failure Stage 3b chronic kidney disease ([facility]) Class 2 severe obesity due to excess calories with serious comorbidity and body mass index (BMI) of 38.0 to 38.9 in adult ([facility]) Type 2 diabetes mellitus with stage 3a chronic kidney disease, without long-term current use of insulin ([facility]) Mixed hyperlipidemia Mixed hyperlipidemia Type 2 diabetes mellitus with other circulatory complications ([facility])- Primary Type 2 diabetes mellitus with stage 3a chronic kidney disease, without long-term current use of insulin ([facility]) Type 2 diabetes mellitus with stage 4 chronic kidney disease, without long-term current use of insulin ([facility]) Type 2 diabetes mellitus without complication, without long-term current use of insulin ([facility]) Class 2 severe obesity due to excess calories with serious comorbidity and body mass index (BMI) of 36.0 to 36.9 in adult ([facility]) Restless leg syndrome Restless legs syndrome (RLS) documented in this encounter [facility] HealthcareEvaluation note* Diagnosis Onset Date Resolution Status [...] Hypertensive nephropathy resolved November 26, 2024 9:38am [facility] Work Phone: Evaluation note* Diagnosis Primary hypertension- Primary Unspecified essential hypertension Gastroesophageal reflux disease, unspecified whether esophagitis present Microscopic hematuria Lower extremity edema Edema Type 2 diabetes mellitus without complication, without long-term current use of insulin ([facility]) Stage 3 chronic kidney disease due to type 2 diabetes mellitus ([facility]) Mixed hyperlipidemia Mixed hyperlipidemia Migraine without aura and without status migrainosus, not intractable Encounter for screening mammogram for malignant neoplasm of breast Colon cancer screening Special screening for malignant neoplasms, colon BMI 50.0-59.9, adult ([facility]) Heel pain, bilateral Type 2 diabetes mellitus without complication, without long-term current use of insulin ([facility])- Primary History of anuria Stage 3 chronic kidney disease due to type 2 diabetes mellitus ([facility]) BMI 50.0-59.9, adult ([facility]) URIEL (obstructive sleep apnea) Obstructive sleep apnea (adult) (pediatric) Primary hypertension Unspecified essential hypertension Chronic diastolic heart failure ([facility]) Chronic diastolic heart failure Depression, unspecified depression type Type 2 diabetes mellitus without complication, without long-term current use of insulin ([facility])- Primary Stage 3 chronic kidney disease due to type 2 diabetes mellitus ([facility]) BMI 50.0-59.9, adult ([facility]) Lower extremity edema Edema Type 2 diabetes mellitus with stage 3 chronic kidney disease, without long-term current use of insulin, unspecified whether stage 3a or 3b CKD ([facility])- Primary Bipolar affective disorder, remission status unspecified ([facility]) Restless leg syndrome Restless legs syndrome (RLS) URIEL (obstructive sleep apnea) Obstructive sleep apnea (adult) (pediatric) Primary hypertension Unspecified essential hypertension Chronic diastolic heart failure (HCC) Chronic diastolic heart failure Stage 3 chronic kidney disease due to type 2 diabetes mellitus ([facility]) Seasonal allergies Allergic rhinitis, cause unspecified BMI 50.0-59.9, adult ([facility]) Type 2 diabetes mellitus with stage 4 chronic kidney disease, without long-term current use of insulin ([facility])- Primary Type 2 diabetes mellitus without complication, without long-term current use of insulin ([facility]) Left lower quadrant abdominal pain- Primary Morbid (severe) obesity due to excess calories ([facility]) Body mass index (BMI) 45.0-49.9, adult ([facility]) Restless leg syndrome Restless legs syndrome (RLS) Stage 3b chronic kidney disease ([facility]) Type 2 diabetes mellitus with other circulatory complications ([facility])- Primary Type 2 diabetes mellitus with stage 4 chronic kidney disease, without long-term current use of insulin ([facility]) Type 2 diabetes mellitus with stage 3a chronic kidney disease, without long-term current use of insulin ([facility]) Class 3 severe obesity due to excess calories with serious comorbidity and body mass index (BMI) of 45.0 to 49.9 in adult ([facility]) Primary hypertension- Primary Unspecified essential hypertension Spinal stenosis of lumbar region at multiple levels Restless leg syndrome Restless legs syndrome (RLS) URIEL (obstructive sleep apnea) Obstructive sleep apnea (adult) (pediatric) Coronary arteriosclerosis Coronary atherosclerosis of unspecified type of vessel, [place] or graft Stage 3b chronic kidney disease ([facility]) Swelling of both lower extremities Lower extremity edema Edema Type 2 diabetes mellitus with stage 3a chronic kidney disease, without long-term current use of insulin ([facility]) Class 3 severe obesity due to excess calories with serious comorbidity and body mass index (BMI) of 45.0 to 49.9 in adult ([facility]) Bipolar affective disorder, remission status unspecified ([facility]) Generalized anxiety disorder Generalized anxiety disorder Vitamin D deficiency Vitamin B12 deficiency Other B-complex deficiencies H/O bariatric surgery Acute non-recurrent pansinusitis Class 2 severe obesity due to excess calories with serious comorbidity and body mass index (BMI) of 38.0 to 38.9 in adult ([facility] Primary Type 2 diabetes mellitus with other circulatory complications ([facility]) Type 2 diabetes mellitus with stage 3a chronic kidney disease, without long-term current use of insulin ([facility]) Encounter for wellness examination in adult- Primary Encounter for screening mammogram for malignant neoplasm of breast Primary hypertension Unspecified essential hypertension Chronic diastolic heart failure (HCC) Chronic diastolic heart failure Stage 3b chronic kidney disease ([facility] Class 2 severe obesity due to excess calories with serious comorbidity and body mass index (BMI) of 38.0 to 38.9 in adult ([facility]) Type 2 diabetes mellitus with stage 3a chronic kidney disease, without long-term current use of insulin (HCC) Mixed hyperlipidemia Mixed hyperlipidemia Type 2 diabetes mellitus with other circulatory complications (HCC)- Primary Type 2 diabetes mellitus with stage 3a chronic kidney disease, without long-term current use of insulin (HCC) Type 2 diabetes mellitus with stage 4 chronic kidney disease, without long-term current use of insulin (HCC) Type 2 diabetes mellitus without complication, without long-term current use of insulin ([facility]) Class 2 severe obesity due to excess calories with serious comorbidity and body mass index (BMI) of 36.0 to 36.9 in adult ([facility] Restless leg syndrome Restless legs syndrome (RLS) documented in this encounter [facility] HealthcareHistory and physical note* Clinical Note Date No Information [facility] Work Phone: History general Narrative - [...] History Tonsilectomy Teenager Hospitalization History See Above [facility] Other Hisfttq general Narrative - Reported* Type Description Date [...] BACK SURGERY 07/2021 Hospitalization History See Above [facility] Other Progress note* Clinical Note Date No Information [facility] Work Phone: Reason for referral (narrative)[facility] Reason for referral (narrative)* Reason For Referral No Information [facility] Work Phone: Review of systems Narrative - Reported* System Pos/Neg Findings No Information [facility] Work Phone: Summary Purpose Family History No [...] sister Family history of mental disorder Unknown Family Member Type Diagnosis Age At Onset Father Problem (finding) Mother Problem (finding) Advance Directives No Advanced Directives Records Found Advance Directive Response Recorded Date/ Time Advance Directives No March 19, 2018 5:43pm Advance Directive Response Recorded Date/ Time Advance Directives No March 19, 2018 4:43pm Directive Yes / No Effective Date File Name No Information Hospital Course Note MR#: [id number] I [facility] Pt. Name: Sherly Humphreys Admitted: 08/23/2018 [...] Diagnosis 1 Thoracic myelopathy (M47.14) Referral Organization [facility] Referring Provider First Name Christian Referring Provider Last Name Alfonso Referring Provider Specialty Neurologica l Surgery Referred Organization [facility] Pain Managemen t Referred Provider Ivan Sams Referred Address [address] [place] [phone] Referred Provider Specialty Pain Medicin e Referral Priority Routine General Notes Nini Davison 023 12:45:54 PM >Received today and sent P2P Kristal Veloz 05/16/2022 02:01:28 PM >pt has been [facility] 09[facility]01:37 AM >Patient was a no show to her appt Nini Davison 06/13/2022 11:23:40 AM >Telephone encounter was sent Reason Evaluate and Treat B ilateral Low Back Pain Diagnosis 1 Low back pain (M54.5 ) Referral Organization [facility] Referring Provider First Name Christian Referring [...] 9 :38am Hypertensive nephropathy November 26 9:38am Chief Complaint Admit Date November 06, 2024 9:16 am E87.5 E79.0 E83.42 E53.8 E55.9 E61.1 Nov ust 2024 2:12pm Renal 6 month follow up November 26 9:38am Established Patient December 16, 2024 8:42am Reason for Visit Admit Date Diabetic nephropathy [...] 9 :38am Hypertensive nephropathy November 26 9:38am Hypertension December 16, 2024 8:42am Intractable back pain December 16 8:42am Morbid obesity December 16, 2024 8:42am Stage 3b chronic kidney disease Septembe 2024 8:42am Additional Source Comments INFORMATION SOURCE (unrecogn ized section and content) DATE CREATED AUTHOR 11/22/2018 [facility] DATE CREATED AUTHOR AUTHOR'S ORGANIZ ATION 09/22/2022 [facility] DATE CREATED AUTHOR AUTHOR'S ORGANIZ ATION 05/26/2023 [facility] DATE CREATED AUTHOR AUTHOR'S ORGANIZ ATION 12/14/2023 [facility] DATE CREATED AUTHOR AUTHOR'S ORGANIZ ATION 11/04/2024 [facility] EPIC DATE CREATED AUTHOR AUTHOR'S ORGANIZ ATION 12/02/2024 [facility] DATE CREATED AUTHOR AUTHOR'S ORGANIZ ATION 12/16/2024 [facility] DATE CREATED AUTHOR AUTHOR'S ORGANIZ ATION 12/31/2024 [facility] DEPARTMENT REASON FOR VISIT (unrecogniz ed [...] Status: Inactive Member Role Status Dates [facility] Active Christian Hamilton MD Attending Provider Active Team Status: Inactive Member Role Status Dates [facility] Care Provider Active Emma Bolivar NP Attending Provider Active Team Status: Inactive Member Role Status Dates [facility] Provider Active Merissa Hernandez [facility]- Emergency Provider Active Team Status: Inactive Member Role Status Dates [facility] Primary Care Provider Active Sta rt: August 15, 2023 End: August 15, 2023 Halle Mac MD Attending Provider Active Star t: August 15, 2023 End: August 15, 2023 Team Status: Active Member Role Status Dates [facility] Primary Care Provider Active Sta rt: September 03, 2023 Valdemar Alonso MD Attending Provider Active Start: September 03, 2023 Team Status: Inactive Member Role Status Dates [facility] Care Provider Active Sta rt: October 01, 2023 End: October 02, 2023 Alma Deng MD Admit Provider Active Start: October 01, 2023 End: October 02, 2023 Des Benitez MD Other Provider Active Start: 2023 End: October 02, 2023 Fernando Rosenberg MD Attending Provider Active Start: October 01, 2023 End: October 02, 2023 Team Status: Active Member Role Status Dates [facility] Primary Care Provider Active Sta rt: October 01, 2023 Alma Deng MD Admit Provider Active Start: October 01, 2023 Des Benitez MD Attending Provider, Other Provider Active Start: October 01, 2023 Fernando Rosenberg MD Other Provider Active Start: October 01, 2023 Team Status: Inactive Member Role Status Dates [facility] Primary Care Provider Active Sta rt: October 11, 2023 End: October 11, 2023 Fernando Rosenberg MD Attending Provider Active Start: October 11, 2023 End: October 11, 2023 Team Status: Active Member Role Status Dates Janene [facility] Primary Care Provider Active Sta rt: October 16, 2023 Valdemar Alonso MD Attending Provider Active Start: October 16, 2023 Team Status: Inactive Member Role Status Dates Janene Lopes [facility] Primary Care Provider Active Sta rt: October 16, 2023 End: October 16, 2023 Halle Mac MD Attending Provider Active Star t: October 16, 2023 End: October 16, 2023 Team Status: Active Member Role Status Dates Janene Lopes [facility] Primary Care Provider Active Sta rt: October 29, 2023 Valdemar Alonso MD Attending Provider Active Start: October 29, 2023 Team Status: Inactive Member Role Status Dates Janene Lopes [facility] Primary Care Provider Active Sta rt: November 01, 2023 End: November 01, 2023 Ban Clemente MD Attending Provider Active Sta rt: November 01, 2023 End: November 01, 2023 Insect Control Aide Relationship Specialty Start Date End Date Markel Haq MD [address] [place] [phone] PCP - General Family Medicine 05/03/23 Janene Lew NP [address] [place] [address] PCP - [place] [employer] 09/15/23 Insect Control Aide Relationship Specialty Start Date End Date Markel Haq MD [address] [place] [phone] PCP - General Family Medicine 05/03/23 Janene Lew NP [address] [place] [address] PCP - [place] [employer] 09/15/23 Insect Control Aide Relationship Specialty Start Date End Date Markel Haq MD [address] [place] [phone] PCP - General Family Medicine 05/03/23 Janene Lew NP [address] [place] [address] PCP - [place] [employer] 09/15/23 Insect Control Aide Relationship Specialty Start Date End Date Markel Haq MD [address] [place] [address] PCP - General Family Medicine 05/03/23 Janene Lew NP [address] [place] [address] PCP - [place] [employer] 09/15/23 Insect Control Aide Relationship Specialty Start Date End Date Markel Haq MD [address] [place] [address] PCP - General Family Medicine 05/03/23 Janene Lew NP [address] [place] [address] PCP - [place] [employer] 09/15/23 Insect Control Aide Relationship Specialty Start Date End Date Markel Haq MD [address] [place] [address] PCP - General Family Medicine 05/03/23 Janene Lew NP [address] [place] [address] PCP - [place] [employer] 09/15/23 Insect Control Aide Relationship Specialty Start Date End Date Markel Haq MD [address] [place] [address] PCP - General Family Medicine 05/03/23 Janene Lew NP [address] [place] [address] PCP - [place] [employer] 09/15/23 Insect Control Aide Relationship Specialty Start Date End Date Markel Haq MD [address] [place] [phone] PCP - General Family Medicine 05/03/23 Janene Lew NP [address] [place] [address] PCP - [place] [employer] 09/15/23 Insect Control Aide Relationship Specialty Start Date End Date Markel Haq MD [address] [place] [address] PCP - General Family Medicine 05/03/23 Janene Lew NP [address] [place] [address] PCP - [place] [employer] 09/15/23 Insect Control Aide Relationship Specialty Start Date End Date Markel Haq MD [address] [place] [address] PCP - General Family Medicine 05/03/23 Janene Lew NP [address] [place] [address] PCP - [place] [employer] 09/15/23 Insect Control Aide Relationship Specialty Start Date End Date Markel Haq MD [address] [place] [address] PCP - General Family Medicine 05/03/23 Janene Lew NP [address] [place] [address] PCP - [place] [employer] 09/15/23 Insect Control Aide Relationship Specialty Start Date End Date Markel Haq MD [address] [place] [address] PCP - General Family Medicine 05/03/23 Janene Lew NP [address] [place] [address] PCP - [place] [employer] 09/15/23 Insect Control Aide Relationship Specialty Start Date End Date Markel Haq MD [address] [place] [address] PCP - General Family Medicine 05/03/23 Janene Lew NP [address] [place] [address] PCP - [place] [employer] 09/15/23 Insect Control Aide Relationship Specialty Start Date End Date Markel Haq MD [address] [place] [address] PCP - General Family Medicine 05/03/23 Janene Lew NP [address] [place] [address] PCP - [place] [employer] 09/15/23 Insect Control Aide Relationship Specialty Start Date End Date Markel Haq MD [address] [place] [address] PCP - General Family Medicine 05/03/23 Janene Lew NP [address] [place] [address] PCP - [place] [employer] 09/15/23 Insect Control Aide Relationship Specialty Start Date End Date Markel Haq MD [address] [place] [address] PCP - General Family Medicine 05/03/23 Janene Lew NP [address] [place] [address] PCP - [place] [employer] 09/15/23 Insect Control Aide Relationship Specialty Start Date End Date Markel Haq MD [address] [place] [address] PCP - General Family Medicine 05/03/23 Janene Lew NP [address] [place] [address] PCP - [place] [employer] 09/15/23 Insect Control Aide Relationship Specialty Start Date End Date Markel Haq MD [address] [place] [address] PCP - General Family Medicine 05/03/23 Insect Control Aide Relationship Specialty Start Date End Date Markel Haq MD [address] [place] [address] PCP - General Family Medicine 05/03/23 Insect Control Aide Relationship Specialty Start Date End Date Markel Haq MD [address] [place] [address] PCP - General Family Medicine 05/03/23 Insect Control Aide Relationship Specialty Start Date End Date Markel Haq MD [address] [place] [address] PCP - General Family Medicine 05/03/23 Insect Control Aide Relationship Specialty Start Date End Date Markel Haq MD [address] [place] [address] PCP - General Family Medicine 05/03/23 Insect Control Aide Relationship Specialty Start Date End Date Markel Haq MD [address] [place] [address] PCP - General Family Medicine 05/03/23 Insect Control Aide Relationship Specialty Start Date End Date Markel Haq MD [address] [place] [address] PCP - General Family Medicine 05/03/23 Insect Control Aide Relationship Specialty Start Date End Date Markel Haq MD [address] [place] [address] PCP - General Family Medicine 05/03/23 Insect Control Aide Relationship Specialty Start Date End Date Markel Haq MD [address] [place] [address] PCP - General Family Medicine 05/03/23 Team Status: Inactive Member Role Status Dates Janene Lew Primary Care Provider Active Sta rt: November 26, 2024 End: November 26, 2024 Halle Mac MD Attending Provider Active Star t: November 26, 2024 End: November 26, 2024 Insect Control Aide Relationship Specialty Start Date End Date Markel Haq MD [address] [place] [address] PCP - General Family Medicine 05/03/23 Name Effective Dates (start - stop) Status Members No Information Team Status: Inactive Member Role Status Dates Janene Lew Primary Care Provider Active Sta rt: December 16, 2024 End: December 16, 2024 Janene Lew Attending Provider Active Start: December 16, 2024 End: December 16, 2024 Goals (unrecognized section and content) Goals [...] BE BASED ON THE PRIMARY CLINICAL RECORDS. [employer] provides no warranty or guarantee of the accuracy or completeness of information in this document.
--- NOTE | 2024-12-31 10:13 | PM.CN ---
Consult Note: HPI Data of Consult Patient: known to practice within the last 3 years Consult date: 12/31/24 Requesting Physician: Becca Meneses NP Primary Care Provider: Janene Lew NP Consult Narrative Reason for consult: f/u Narrative: pleasant [id number] who presents for evaluation. increasing middle and low back pain. imaging reviewed of lumbar spine consistent with lumbar stenosis with NC, lumbar spondylosis and facet arthropathy, thoracic spine consists of degenerative changes and bulging disc. continues to engage in >6 week course of provider directed home exercises 2x/week, with limited benefit. underwent two previous discectomies, with little relief. her previous neurosurgeon does not recommend further surgery. was advised to consider scs. cannot take NSAIDs, hx of gastric bypass. she utilizes gabapentin, tizanidine, and percocet. denies adverse med side effects. Today pain 8/10 in right hip, middle back, bilateral buttock, bilateral low back, feels like a sharp pain, increasing to 10/10 with standing, walking, working, lifting bending, ADLs, housework, sitting, and sleep. Patient continues to find functional improvement from current medication regimen. Again recently evaluated by JERRY Kc who recommends no surgical intervention, but rather spinal cord stim trial. cc:: CC: Becca Meneses NP Review of Systems ROS Status of ROS 10 or more systems reviewed and unremarkable except as noted in history and below Musculoskeletal Reports: back pain, extremity pain and joint pain [facility] Medical History (Updated 10/07/24 @ 14:03 by Shanika Cm NP) Back pain ?M54.9 - Dorsalgia, unspecified (ICD-10) Arthritis ?M19.90 - Unspecified osteoarthritis, unspecified site (ICD-10) Diverticulosis ?K57.90 - Diverticulosis of intestine, part unspecified, without perforation or abscess without bleeding (ICD-10) Extremity edema ?R60.0 - Localized edema (ICD-10) Delayed recovery from anesthesia MRSA infection ?A49.02 - Methicillin resistant Staphylococcus aureus infection, unspecified site (ICD-10) Stage III chronic kidney disease ?N18.30 - Chronic kidney disease, stage 3 unspecified (ICD-10) Spinal stenosis of thoracolumbar region ?M48.05 - Spinal stenosis, thoracolumbar region (ICD-10) Spinal stenosis of lumbar region at multiple levels ?M48.061 - Spinal stenosis, lumbar region without neurogenic claudication (ICD-10) Seasonal allergies ?J30.2 - Other seasonal allergic rhinitis (ICD-10) RLS (restless legs syndrome) ?G25.81 - Restless legs syndrome (ICD-10) Kidney stones ?N20.0 - Calculus of kidney (ICD-10) Myalgia ?M79.10 - Myalgia, unspecified site (ICD-10) Migraine ?G43.909 - Migraine, unspecified, not intractable, without status migrainosus (ICD-10) Microscopic hematuria ?R31.29 - Other microscopic hematuria (ICD-10) Lumbar disc herniation ?M51.26 - Other intervertebral disc displacement, lumbar region (ICD-10) Lower extremity edema ?R60.0 - Localized edema (ICD-10) Irritable bowel syndrome with diarrhea ?K58.0 - Irritable bowel syndrome with diarrhea (ICD-10) Insomnia ?G47.00 - Insomnia, unspecified (ICD-10) Hypomagnesemia ?E83.42 - Hypomagnesemia (ICD-10) Hyperlipidemia ?E78.5 - Hyperlipidemia, unspecified (ICD-10) Hyperkalemia ?E87.5 - Hyperkalemia (ICD-10) GERD (gastroesophageal reflux disease) ?K21.9 - Gastro-esophageal reflux disease without esophagitis (ICD-10) Fatigue ?R53.83 - Other fatigue (ICD-10) Dyspnea ?R06.00 - Dyspnea, unspecified (ICD-10) Depression ?F32.A - Depression, unspecified (ICD-10) Lumbar degenerative disc disease ?M51.369 - Other intervertebral disc degeneration, lumbar region without mention of lumbar back pain or lower extremity pain (ICD-10) Postlaminectomy syndrome ?M96.1 - Postlaminectomy syndrome, not elsewhere classified (ICD-10) Coronary arteriosclerosis ?I25.10 - Atherosclerotic heart disease of [place] coronary artery without angina pectoris (ICD-10) C. difficile diarrhea ?A04.72 - Enterocolitis due to Clostridium difficile, not specified as recurrent (ICD-10) Bradycardia ?R00.1 - Bradycardia, unspecified (ICD-10) Anemia ?D64.9 - Anemia, unspecified (ICD-10) Abdominal hernia ?K46.9 - Unspecified abdominal hernia without obstruction or gangrene (ICD-10) Hypertension ?I10 - Essential (primary) hypertension (ICD-10) Bipolar 1 disorder ?F31.9 - Bipolar disorder, unspecified (ICD-10) Anxiety ?F41.9 - Anxiety disorder, unspecified (ICD-10) Diabetes ?E11.9 - Type 2 diabetes mellitus without complications (ICD-10) URIEL on CPAP ?G47.33 - Obstructive sleep apnea (adult) (pediatric) (ICD-10) Sleep apnea ?G47.30 - Sleep apnea, unspecified (ICD-10) High cholesterol ?E78.00 - Pure hypercholesterolemia, unspecified (ICD-10) CHF (congestive heart failure) ?I50.9 - Heart failure, unspecified (ICD-10) Surgical History S/P epidural steroid injection ?Z92.241 - Personal history of systemic steroid therapy (ICD-10) H/O colonoscopy ?Z98.890 - Other specified postprocedural states (ICD-10) H/O cervical spine surgery ?Z98.890 - Other specified postprocedural states (ICD-10) H/O bariatric surgery ?Z98.84 - Bariatric surgery status (ICD-10) History of hysterectomy ?Z90.710 - Acquired absence of both cervix and uterus (ICD-10) History of shoulder surgery ?Z98.890 - Other specified postprocedural states (ICD-10) History of neck surgery ?Z98.890 - Other specified postprocedural states (ICD-10) History of back surgery ?Z98.890 - Other specified postprocedural states (ICD-10) History of heart artery stent (~2009) ?Z95.5 - Presence of coronary angioplasty implant and graft (ICD-10) Family History Other Family history of DVT Family history of aneurysm Family history of cancer Family history of coronary artery disease Family history of diabetes mellitus Family history of heart disease Family history of hypertension Family history of myocardial infarction Family history of renal failure Family history of stroke Social History Within the past year, how often did you have a drink containing alcohol: never Score interpretation: A score less than 3 is consistent with normal alcohol consumption. Smoking status: Never smoker Non-prescribed substance use: denies use Previous occupational history: [employer] Highest level of school completed/degree received: high school graduate Little interest or pleasure in doing things: not at all Feeling down, depressed, or hopeless: not at all Meds Home Medications and Allergies Home Medications ?Medication ?Instructions ?Recorded ?Confirmed ?Type amlodipine 10 mg tablet 10 mg PO QDAY 12/18/22 10/07/24 History aspirin 81 mg chewable tablet 81 mg PO QDAY 12/18/22 10/07/24 History atorvastatin 80 mg tablet 80 mg PO QDAY 12/18/22 10/07/24 History buspirone 30 mg tablet 30 mg PO BID 12/18/22 10/07/24 History cariprazine 6 mg capsule (Vraylar) 6 mg PO Q24H 12/18/22 10/07/24 History fenofibrate nanocrystallized 145 145 mg PO QDAY 12/18/22 10/07/24 History mg tablet gabapentin 600 mg tablet 600 mg PO QDAY PRN neuromuscular 12/18/22 10/07/24 History blockade isosorbide mononitrate 30 mg 30 mg PO QDAY 12/18/22 10/07/24 History tablet,extended release 24 hr metoprolol succinate 25 mg 12.5 mg PO QDAY 12/18/22 10/07/24 History tablet,extended release 24 hr sacubitril 49 mg-valsartan 51 mg 0.5 tab PO BID 12/18/22 10/07/24 History tablet (Entresto) tizanidine 4 mg tablet 4 mg PO Q8H PRN muscle spasticity 12/18/22 10/07/24 History cetirizine 10 mg tablet (Zyrtec) 10 mg PO DAILY PRN allergy symptoms 01/01/23 10/07/24 History ferrous sulfate 134 mg (27 mg 134 mg PO BID 01/01/23 10/07/24 History iron) tablet (High Potency Iron) oxycodone-acetaminophen 7.5 mg-325 1 tab PO BID PRN pain #60 tabs 08/28/24 10/07/24 Rx mg tablet (Percocet) tirzepatide 5 mg/0.5 mL 5 mg subcut QWEEK 10/01/24 10/01/24 History subcutaneous pen injector (Anabel) aripiprazole 30 mg tablet 30 mg PO DAILY 10/07/24 10/07/24 History benztropine 0.5 mg tablet 0.5 mg PO BID 10/07/24 10/07/24 History cholecalciferol (vitamin D3) 125 5,000 unit PO DAILY 10/07/24 10/07/24 History mcg (5,000 unit) capsule cyanocobalamin (vitamin B-12) 2,000 mcg sublingual DAILY 10/07/24 10/07/24 History 1,000 mcg sublingual lozenge fluoxetine 10 mg capsule 10 mg PO DAILY 10/07/24 10/07/24 History fluoxetine 40 mg capsule 40 mg PO DAILY 10/07/24 10/07/24 History fluticasone propionate 50 2 spray intranasal Q12H 10/07/24 10/07/24 History mcg/actuation nasal spray,suspension nitroglycerin 0.4 mg sublingual 0.4 mg sublingual Q5M PRN chest 10/07/24 10/07/24 History tablet pain sennosides 8.6 mg-docusate sodium 1 tab-cap PO DAILY 10/07/24 10/07/24 History 50 mg capsule oxycodone-acetaminophen 7.5 mg-325 1 tab PO BID PRN pain #60 tabs 10/29/24 Rx mg tablet (Percocet) oxycodone-acetaminophen 7.5 mg-325 1 tab PO BID PRN pain #60 tabs 12/01/24 Rx mg tablet (Percocet) oxycodone-acetaminophen 7.5 mg-325 1 tab PO BID PRN pain #60 tabs 12/29/24 Rx mg tablet (Percocet) Allergies Allergy/AdvReac Type Severity Reaction Status Date / Time Sulfa (Sulfonamide Allergy Mild Hives Verified 10/07/24 11:26 Antibiotics) prochlorperazine (From AdvReac Intermediate Agitated Verified 10/07/24 11:26 Compazine) promethazine (From Phenergan) AdvReac Intermediate Agitated Verified 10/07/24 11:26 sulfamethoxazole (From AdvReac Mild Hives Verified 10/07/24 11:26 Bactrim) trimethoprim (From Bactrim) AdvReac Mild Hives Verified 10/07/24 11:26 Exam Constitutional Documenting provider has reviewed patient's vital signs: yes Common normals: no apparent distress, oriented x3, healthy appearing, alert and well nourished General appearance: cooperative HENMT Common normals: normocephalic, hearing grossly normal bilaterally and moist oral mucous membranes Head and scalp: normocephalic Eye Common normals: PERRL Pupil: PERRL Neck & C-Spine Common normals: full ROM General: normal visual inspection Chest Common normals: inspection of chest normal Respiratory Common normals: normal respiratory effort, no retractions and no use of accessory muscles Back & Pelvis Thoracic spine/upper back: ROM limited, pain with ROM and thoracic spinal tenderness Lumbar spine/lower back: ROM limited, pain with ROM and straight leg raise positive right Other: positive facet loading at T10-L3 radiculopathy following T12-L1 patterns increased pain with standing and walking, improved with sitting and forward flexion strength 5/5 in BLE, sensation intact Extremity Common normals: normal to inspection and full ROM Right lower extremity: hip joint Other: increased pain with internal and external rotation of right hip Neuro Common normals: oriented x3 and CN's II-XII intact bilaterally Sensorium/orientation: alert Motor exam: no movement abnormalities noted Psych Common normals: mental status grossly normal, thought process normal, cooperative, affect normal, speech normal and activity/motor behavior normal Speech: normal speech Thought process: normal thought process Results Additional Findings Additional findings: If on a controlled substance or opioids, I have checked an [place]AR[place] report on this patient and there are no aberrancies noted in the prescribing history.??If on a controlled substance or opioid a drug screen was completed and reviewed within the last year, and if there has not been a drug screen completed we ordered one today to monitor higher risk, state monitored pain medication use. As part of providing excellent, safe, comprehensive care, the following was completed at our patient's visit: 1. A medication reconciliation and review to ensure accurate knowledge of current/active medications, including asking our patients to inform us about any [id number] medications or herbal remedies/nutritional supplements/alternative remedies. 2. A review to specifically ensure our patients have had annual screening for screening for depression, screening for tobacco use, and screening for unhealthy alcohol use. For concerning screenings had a discussion with the patient, provided patient education, and recommended follow-up with primary care provider when appropriate. If patient noted with a risk of falling, they received education on strength, gait, and balance training to prevent future risk of falling. Assessment and Plan Assessment and Plan (1) Failed back syndrome: Assessment and Plan: The patient has had over 3 months of moderate to severe low back pain with functional impairment and inadequate response to conservative care including NSAIDS (unless there are contraindication such as concurrent blood thinners), multiple oral or topical pain medications, and home exercise program/physical therapy.? Patient has completed >6 weeks of guided home exercise program and/or formal physical therapy program without relief of their symptoms.? The Oswestry Disability Index was completed, and the patient scored a 38%.? The patient noted the following:?? moderate to severe pain, pain with ADLs, pain with walking, pain impacting sleep, pain impacting social life and travel? (2) Lumbar spondylosis: (3) Thoracic radiculopathy: (4) Thoracic stenosis: (5) Chronic prescription opiate use: Assessment and Plan: I feel these medications are improving the patient's quality of life and allow them to tolerate activities of daily living as well as participate in recreational activity.? The patient does not report intolerable side effects. The patient is NOT opioid naive and non-pharmacologic and non-opioid treatment has failed to significantly relieve the patient's pain and improve functionality. The patient has a diagnosis that is related to a somatic or visceral pain etiology. ? ?? I reviewed with the patient the potential risks and side effects with the use of? opioid medications including but not limited to respiratory depression,? sedation, and even . I verified the patient has access to naloxone should? these effects occur. I advised the patient to avoid the use of any other? sedation substances including alcohol, THC, and benzodiazepines while? taking opioid medications due to the risk of compounding side effects and? detrimental outcomes. I reviewed the ADMINISTRATIVE SUPPORT TECHNICIAN, pain treatment agreement, urine? drug screen, and opioid start talking forms. The patient was advised to let? their family know they had Naloxone in case they would need to administer? the medication.? ?? A drug screen was completed within the last year, and no aberrancies were noted regarding their use of controlled substances. The patient understands they are subject to the terms and conditions of the pain contract that they have signed. ? ?? I have checked an OARRS report on this patient today and there are no aberrancies noted in the prescribing history.? (6) Chronic pain syndrome: (7) Chronic right hip pain: Plan proceed with SpecifiedBy spinal cord stimulation trial with IV sedation under fluoroscopy. risks vs benefits reviewed. continue current medications, risks vs benefits reviewed. known hx of MRSA post lumbar surgery, will continue with intraop and post op antibiotics. continue HEP as tolerated. f/u with spinal cord stim trial lead removal.
== END 2024-12-31 09:59 | disposition home or self-care (01) ==
LOC: PM 09:58
PROVIDERS: PCP Nurse Practitioner; Visit Provider Nurse Practitioner
DX: M47.816 Spondylosis without myelopathy or radiculopathy, lumbar region (principal); M96.1 Postlaminectomy syndrome, not elsewhere classified; M54.14 Radiculopathy, thoracic region; M48.04 Spinal stenosis, thoracic region; Z79.891 Long term (current) use of opiate analgesic; G89.4 Chronic pain syndrome; M25.551 Pain in right hip
CPT/HCPCS: G0463

== ENCOUNTER 2025-01-13 10:47 | Outpatient (OUT) | payer BC, SELFPAY ==
--- OUTSIDE RECORDS SUMMARY | 2024-12-30 08:52 | XMS_ITS ---
Author Name Auto Generated Organization OHIP Care Team Providers Care Ssrs Report Developer Name Role Phone [facility]HAW[facility], EHAB Referring Unavailable EL[facility]HAWY, EHAB Attending Unavailable [facility], EHAB Admitting Unavailable [facility], EHAB Attending Unavailable [facility], EHAB Referring Unavailable Halle Mac Attending Unavailable Halle Mac Admitting Unavailable Janene Lew Primary Care Unavailable Halle Mac Attending Unavailable Halle Mac Admitting Unavailable Janene Lew Primary Care Unavailable Valdemar Alonso Attending Unavailab le Valdemar Alonso Admitting Unavailab le Janene Lew Primary Care Unavailable Vivekoliverio FLORES, Joshua Attending Unavailable LYNDSAY CASTORENA Attending Unavailable JANENE LEW Attending Unavailable LYNDSAY CASTORENA Attending Unavailable JANENE LEW Attending Unavailable LYNDSAY CASTORENA Attending Unavailable PROBLEMS DATE TYPE CONDITION / CODE ATTENDING STATUS [facility] 11/25/2024 Admitting Diagnosis Abnormal result of other cardiovascular function study / R94.39(ICD-10) [facility] 10/16/2024 Admitting Diagnosis Encounter for other preprocedural examination / Z01.818(ICD-10) [facility] 10/16/2024 Admitting Diagnosis Atherosclerotic heart disease of [place] coronary artery without angina pectoris / I25.10(ICD-10) [facility] 10/16/2024 Admitting Diagnosis Syncope and collapse / R55(ICD-10) [facility] 03/11/2024 Unknown Hyperuricemia wi thout signs of inflammatory arthritis and tophaceous disease / E79.0(ICD-10) [facility] 03/11/2024 Unknown Hypomagnesemia / E83.42(ICD-10) [facility] 03/11/2024 Unknown Deficiency of ot her specified B group vitamins / E53.8(ICD-10) [facility] 03/11/2024 Unknown Vitamin D defici ency, unspecified / E55.9(ICD-10) [facility] 03/11/2024 Unknown Iron deficiency / E61.1(ICD-10) [facility] 03/11/2024 Unknown Morbid (severe) obesity due to excess calories / E66.01(ICD-10) [facility] 03/11/2024 Unknown Localized edema / R60.0(ICD-10) [facility] 03/11/2024 Unknown Type 2 diabetes mellitus with diabetic nephropathy / E11.21(ICD-10) [facility] 03/11/2024 Unknown Chronic kidney disease, stage 3b / N18.32(ICD-10) [facility] 03/11/2024 Unknown Hypertensive chr onic kidney disease with stage 1 through stage 4 chronic kidney disease, or unspecified chronic kidney disease / I12.9(ICD-10) [facility] 03/11/2024 Unknown Hyperkalemia / E87.5(ICD-10) [facility] PROCEDURES No Procedure Records Found RESULTS NURSNOTE Observed: 12/12/2024 11:41 AM Status: COMPLETED Source: [facility] RN educated pt on d/c instru ctions. This included: site care, limited physical activity, resume normal diet, future appointments, medications, and moderate sedation instructions. RN educated pt on when to notify physician and when to go to the hospital. RN provided pt with arm sling and educated pt on importance of not using arm for 24 hours for radial sites. RN encouraged pt to voice any questions or concerns, and answered any questions or concerns if pt verbalized. Pt was wheeled off of unit with all of belongings. ANES Observed: 12/12/2024 8:06 AM Status: COMPLETED Source: [facility] Attestation signed by Tk Espinoza MD at 12/12/2024 8:20 AM Tk Espinoza MD, MPH, FACC, [facility], [facility] Interventional Cardiology Pager Email: [email or web address] Patient: Sharlene Humphreys Procedure Information Date/Time: 12/12/24829 Procedure: Coronary angiography (Left) - PC APPROVED 11/26-12/25 Location: [facility] 3 / [facility] (Cath) Providers: Tk Espinoza MD Clinical information reviewed: Allergies Meds OB Status Physical Exam Airway Mallampati: III TM distance: >3 FB Neck ROM: full Cardiovascular Rhythm: regular Rate: normal (+) peripheral edema (-) murmur, JVD Dental Pulmonary Breath sounds clear to auscultation Neurological Abdominal Anesthesia Plan ASA 3 (Moderate conscious sedation) Anesthetic plan and risks discussed with patient. Use of blood products discussed with patient who consented to blood products. Plan discussed with attending. Additional Equipment Requests Austin Earl MD Tile Molder Hand, PGY-4 [facility] 12/12/24 8:07 AM PROGRESS Observed: 12/12/2024 8:06 AM Status: COMPLETED Source: [facility] - proceed with coronary ariella ogram, discussed risks including stroke, MD, . Patient agreeable to proceed. No associated orders from this encounter found during lookback period of 72 hours. HP Observed: 12/12/2024 7:57 AM Status: COMPLETED Source: [facility] Attestation signed by Tk Espinoza MD at 12/12/2024 8:20 AM By using the attestations below, the signing clinician agrees that I have read and verify that the documentation has been personally reviewed by me and ensure that the documentation accurately reflects the encounter. GC: I personally saw this patient on the day of the encounter, performed the burk portion(s) of the service and participated in the management and confirm the resident's documentation. Please note there may be an additional personal documentation from me. Additional Comments: Tk Espinoza MD, MPH, [facility], [facility], [facility] Interventional Cardiology Pager Email: [email or web address] History Of Present Illness Sharlene Humphreys is a 53 y.o. female with PMH of CAD /p PCI/MARY JANE to LAD in 2009, HTN, HFpEF, mild MR, DM, HLD who initially presented to clinic for cardiac clearance for spine surgery. She was noted to have symptomatic sinus bradycardia with concern for long pauses or advanced AV block. She had a lexiscan done on 11/13/24 which was notable for mild inferolateral ischemia and today she is scheduled for follow up coronary angiogram. She denies any episodes of chest pain or shortness of breath. Her last echo was in 2022 showed preserved EF 65% and grade 2 diastolic dysfunction. Her last cath was done in 2021 which showed mild-moderate disease in LAD with 40-50% stenosis. Reviewed recent labs, Hb 11.9, Cr 1.07, otherwise unremarkable. EKG today notes sinus bradycardia in the 50s. Past Medical History Medical History[1] Surgical History Surgical History[2] Social History Social History Socioeconomic History Marital status: Single Spouse name: Not on file Number of children: Not on file Years of education: Not on file Highest education level: Not on file Occupational History Not on file Tobacco Use Smoking status: Never Smokeless tobacco: Never Substance and Sexual Activity Alcohol use: Not Currently Drug use: Defer Sexual activity: Defer Other Topics Concern Not on file Social History Narrative Not on file Social Drivers of Health Financial Resource Strain: High Risk (11/18/2024) Received from [facility] Overall Financial Resource Strain (CARDIA) Difficulty of Paying Living Expenses: Hard Food Insecurity: Food Insecurity Present (11/18/2024) Received from [facility] Hunger Vital Sign Worried About Running Out of Food in the Last Year: Often true Ran Out of Food in the Last Year: Often true Transportation Needs: No Transportation Needs (11/18/2024) Received from [facility] PRAPARE - Transportation Lack of Transportation (Medical): No Lack of Transportation (Non-Medical): No Physical Activity: Inactive (11/18/2024) Received from [facility] Exercise Vital Sign Days of Exercise per Week: 0 days Minutes of Exercise per Session: 0 min Stress: Stress Concern Present (11/18/2024) Received from [facility] Occupational Health - Occupational Stress Questionnaire Feeling of Stress : To some extent Social Connections: Socially Isolated (11/18/2024) Received from [facility] Social Connection and Isolation Panel [NHANES] Frequency of Communication with Friends and Family: More than three times a week Frequency of Social Gatherings with Friends and Family: Once a week Attends Gnosticism Services: Never Active Member of Clubs or Organizations: No Attends Club or Organization Meetings: Never Marital Status: Never Intimate Partner Violence: Not At Risk (11/18/2024) Received from [facility] Humiliation, Afraid, Rape, and Kick questionnaire Fear of Current or Ex-Partner: No Emotionally Abused: No Physically Abused: No Sexually Abused: No Housing Stability: Low Risk (11/18/2024) Received from [facility] Housing Stability Vital Sign Unable to Pay for Housing in the Last Year: No Number of Times Moved in the Last Year: 0 Homeless in the Last Year: No Family History Family History[3] Allergies Allergies[4] Medications Prescriptions Prior to Admission[5] Review of Systems Constitutional: Positive for fatigue. Respiratory: Negative. Negative for shortness of breath. Cardiovascular: Positive for leg swelling. Negative for chest pain and palpitations. Neurological: Positive for light-headedness. Last Recorded Vitals Visit Vitals BP (!) 153/96 Pulse 56 Resp 16 Ht 1.626 m (5' 4 ) Wt 102 kg (225 lb) SpO2 99% BMI 38.62 kg/m??? OB Status Postmenopausal Smoking Status Never BSA 2.15 m??? Physical Exam Cardiovascular: Rate and Rhythm: Normal rate and regular rhythm. Heart sounds: No murmur heard. No friction rub. Pulmonary: Effort: Pulmonary effort is normal. Breath sounds: Normal breath sounds. Musculoskeletal: Right lower leg: Edema present. Left lower leg: Edema present. Neurological: Mental Status: She is alert. Relevant Lab Results Lab Results Component Value Date CO2 26 08/25/2018 BUN 26 (H) 08/25/2018 CALCIUM 8.9 08/25/2018 EGFR >60 08/25/2018 EGFR >60 08/25/2018 Relevant Imaging Results XR hip right 2 or 3 views Narrative: [facility] Department of Radiology [address] [place] [id number] Patient Name: SHARLENE HUMPHREYS : 1970 Sex: F Age: Race: White^White Pt. Location: [address] [place] [address] Patient Status: D Ordered Date: 08/24/2018 12:30:00 [...] No acute fracture or dislocation. Joints: Unremarkable. Impression: 1. Unremarkable right hip radiograph. Approved by:Dl Goldberg on 08/24/2018 6:38 PM EDT. I, Georgi Jones, have reviewed the images and report and concur with these findings. Electronically signed by:Georgi Jones. Transcribed by: [email or web address], User Resident: DL GOLDBERG Electronically Signed by: GEORGI JONES @ 08/25/2018 08:05 PM I personally read this/these film(s) with this resident Assessment & Plan Abnormal cardiovascular stress test - proceed with coronary angiogram, discussed risks including stroke, MD, . Patient agreeable to proceed. No associated orders from this encounter found during lookback period of 72 hours. Principal Problem: Abnormal cardiovascular stress test Austin Earl MD Tile Molder Hand, PGY-4 [facility] 12/12/24 8:05 AM [1] Past Medical History: Diagnosis Date Coronary artery disease Hyperlipidemia Hypertension [2] Past Surgical History: Procedure Laterality Date CARDIAC CATHETERIZATION CORONARY STENT PLACEMENT [3] Family History Problem Relation Name Age of Onset Cancer Mother Heart attack Father [4] Allergies Allergen Reactions Cephalexin Other and Rash Penicillins Other and Rash Phenergan Plain seizures Prochlorperazine Other seizures Sulfamethoxazole Other and Rash Empagliflozin Esomeprazole Magnesium Other Omeprazole Nausea Only Pantoprazole Nausea Only Promethazine Other Zolpidem Unknown Other Reaction(s): Unknown Reaction Sulfamethoxazole-Trimethoprim Other and Rash [5] Medications Prior to Admission Medication Sig Dispense Refill Last Dose/Taking amLODIPine (Norvasc) 5 mg tablet Take 2 tablets (10 mg) by mouth in the morning. 180 tablet 3 12/12/2024 ARIPiprazole (Abilify) 30 mg tablet Take 1 tablet by mouth in the morning. 12/12/2024 Morning aspirin 81 mg chewable tablet CHEW AND SWALLOW 1 TABLET BY MOUTH ONCE DAILY 12/12/2024 Morning atorvastatin (Lipitor) 80 mg tablet Take 1 tablet (80 mg) by mouth at bedtime. 90 tablet 3 12/11/2024 benztropine (Cogentin) 0.5 mg tablet Take 1 tablet by mouth Twice daily at 6am and 6pm. 12/12/2024 Morning busPIRone (Buspar) 30 mg tablet Take 20 mg by mouth in the morning and at bedtime. 12/12/2024 Morning cariprazine HCl (VRAYLAR ORAL) Take 6 mg by mouth in the morning. 12/11/2024 cetirizine 10 mg capsule Take by mouth in the morning. 12/11/2024 cholecalciferol (Vitamin D-3) 1,250 mcg (50,000 unit) capsule Take 1 capsule every week by oral route for 28 days. 12/11/2024 cyanocobalamin (Vitamin B-12) 2,000 mcg tablet Take 2,000 mcg by mouth in the morning. 12/11/2024 fenofibrate (Tricor) 145 mg tablet Take 1 tablet (145 mg) by mouth in the morning. 90 tablet 3 12/11/2024 ferrous sulfate 325 (65 Fe) MG tablet Take 65 mg by mouth with breakfast. 12/12/2024 Morning FLUoxetine (PROzac) 10 mg capsule Take by mouth in the morning. (Patient taking differently: Take 40 mg by mouth in the morning.) 12/12/2024 Morning gabapentin (Neurontin) 300 mg capsule Take 300 mg by mouth if needed. Past Month isosorbide mononitrate ER (Imdur) 30 mg 24 hr tablet Take 1 tablet (30 mg) by mouth once daily as directed. 90 tablet 3 12/12/2024 Morning magnesium oxide (Mag-Ox) 400 mg (241.3 mg magnesium) tablet Take 1 tablet by mouth in the morning. 12/11/2024 metoprolol succinate XL (Toprol-XL) 25 mg 24 hr tablet Take 0.5 tablets (12.5 mg) by mouth in the morning. 45 tablet 3 12/12/2024 Morning Mounjaro 7.5 mg/0.5 mL pen injector Inject 7.5 mg as directed 1 (one) time per week. Past Week rOPINIRole (Requip) 0.25 mg tablet Take 0.25 mg by mouth at bedtime. 12/11/2024 sacubitril-valsartan (Entresto) 49-51 mg tablet Take 1 tablet by mouth two times daily. 180 tablet 3 12/12/2024 Morning tiZANidine (Zanaflex) 4 mg capsule Take 1 capsule as needed by oral route. 12/11/2024 nitroglycerin (Nitrostat) 0.[address] 1 tablet as needed by sublingual route as needed; if no relief repeat in 5 mins for total of 3 tabs. If no response, seek medical attention/go to the nearest ER (Patient not taking: Reported on 12/12/2024) 90 tablet 0 Not Taking pioglitazone (Actos) 45 mg tablet (Patient not taking: Reported on 12/12/2024) Unknown spironolactone (Aldactone) 25 mg tablet Take 1 tablet (25 mg) by mouth in the morning. (Patient not taking: Reported on 10/16/2024) 90 tablet 3 ORDERS ONLY Observed: 12/10/2024 12:00 AM Status: COMPLETED Source: [facility] [id number] Sharlene Humphreys [birth year] F Date Provider Department [facility] 12/10/2024 [id number], HISTORICAL CARD [facility] Family History Problem Relation Age of Onset Cancer Mother Heart attack Father Family Status - Relation Status Age at Mother Father DIPSTICK AND MICROSCOPIC Collected: 08/2024 2:24 PM Status: F Source: [facility] Order Comment: Name Collect ion Type:: Clean-Voided Midstream TYPE CODE TESTS RESULT OUT OF RANGE REFERENCE UNITS LAB UCOL Color,Urine Yellow Yellow LAB UAPP Appearance,Uri ne Clear Clear LAB USG Specificy [place],Urine 1.038 High 1.001-1.030 LAB UPH pH,Urine 5.0 Normal 5.0-9.0 LAB ULE Leukocyte Esterase,Urine 3+ Negative LAB UNIT Nitrite,Urine Negative Negative LAB UPRO Protein,Urine Trace Negative mg/dL LAB UGL Glucose,Urine (UA) Normal Normal mg/dL LAB UKET Ketones,Urine Negative Negative LAB UURO Urobilinogen,U rine 2 Normal mg/dL LAB UBIL Bilirubin,Urin e 1+ Negative LAB UBLD Occult Blood,Urine Negative Negative Result Comment: PERFORMED BY : [place] [address] [place] [address] PATHOLOGIST INFORMATION BROKER KRISHAN PAEZ M.D. LAB URBC RBC,Urine 1-2 0-4 [HPF] LAB UWBC WBC,Urine 1-2 0-4 [HPF] LAB USQEPI Squamous Epithelial Cell,Urine 1-2 0-2 [HPF] LAB UBACT Bacteria,Urine None Seen None Seen [HPF] LAB UHYALC Hyaline Casts,Urine 9-19 0-8 [LPF] LAB MUCUS Mucus,Urine Rare [LPF] Result Comment: PERFORMED BY : [place] [id number] PATHOLOGIST INFORMATION BROKER KRISHAN PAEZ M.D. Performed By: #### RAMOS CAIN PROCRERAT #### [facility] [address] [place] [address] [place] MICROALB CREAT RATIO,U Collected: 11/18/2024 2:24 PM Status: F Source: [facility] TYPE CODE TESTS RESULT OUT OF RANGE REFERENCE UNITS LAB UMAT Microalbumin , Urine 2.2 High 0.0-1.8 mg/dL LAB UCREA Creatinine, Urine (Random) 270.00 mg/dL Result Comment: No reference range established LAB MACREATRATIO Microalbumin /Creatinine Ratio 8.1 Normal 0.0-30.0 mg/g Result Comment: 30-300 mg/g indicates an increased risk for diabetic nephropathy. Greater than 300 mg/g is consistent with clinical nephropathy. (Am. J. Kidney Disease 1995, 25:107) Performed By: #### RAMOS CAIN PROCRERAT #### [facility] [address] [place] [address] [place] PROTEIN CREAT RATIO UR RANDOM Collected : 11/18/2024 2:24 PM Status: F Source: [facility] TYPE CODE TESTS RESULT OUT OF RANGE REFERENCE UNITS LAB UTPTT Protein, Urine (Random) 23 High 0-9 mg/dL LAB UTPCREAT Urine Protein/Crea tinine Ratio 85 Normal 0-200 mg/g{Cre} Result Comment: PERFORMED BY : [address] [address] PATHOLOGIST INFORMATION BROKER KRISHAN PAEZ M.D. Performed By: #### RAMOS CAIN PROCRERAT #### [facility] [address] [place] [id number] [facility] HEMOGRAM CBC WITHOUT DIFF Collected: 11/18/2024 2:23 PM Status: F Source: [facility] TYPE CODE TESTS RESULT OUT OF RANGE REFERENCE UNITS LAB WBC White Blood Count 9.7 Normal 3.8-11.6 [CFU]/mL LAB RBC Red Blood Count 3.67 Normal 3.60-5.00 10*6/u L LAB HGB Hemoglobin 10.8 Low 11.8-15.4 g/dL LAB HCT Hematocrit 33.1 Low 34.0-46.4 % LAB MCV Mean Corpuscular Volume 90.3 Normal 80-100 fL LAB MCH Mean Corpuscular Hemoglobin 29.5 Normal 24.7-34.3 pg LAB MCHC Mean Corpuscular HGB Conc 32.7 Normal 32.0-35.0 g/dL LAB RDW Red Cell Distribution Width 13.9 Normal 11.9-15.3 % LAB PLT Platelet Count 258 Normal 150-450 10*3/uL LAB MPV Mean Platelet Volume 9.4 Normal 6.3-10.7 fL Result Comment: PERFORMED BY : [place] [address] PATHOLOGIST INFORMATION BROKER KRISHAN PAEZ M.D. Performed By: #### URIC, FE and TIBC, [id number], GEENA, MG, RENAL, CBCNO, [id number], PTH #### [place] [id number] [facility] PARATHYROID HORMONE INTACT Collected: 11/18/2024 2:23 PM Status: F Source: [facility] TYPE CODE TESTS RESULT OUT OF RANGE REFERENCE UNITS LAB PTH Parathyroid Hormone Intact 25.6 Normal 12-88 pg/mL Result Comment: PERFORMED BY : [place] [id number] PATHOLOGIST INFORMATION BROKER KRISHAN PAEZ M.D. Performed By: #### URIC, FE and TIBC, [id number], GEENA, MG, RENAL, CBCNO, [id number], PTH #### [place] [id number] [facility] RENAL FUNCTION PANEL Collected: 11/18/2024 2:23 PM S tatus: F Source: [facility] TYPE CODE TESTS RESULT OUT OF RANGE REFERENCE UNITS LAB GLU Glucose 88 Normal 70-100 mg/dL Result Comment: Random Gluco se Reference Range is dependent on time and content of last meal. Glucose of more than 200 mg/dL in a nonstressed, ambulatory subject supports the diagnosis of Diabetes Mellitus. ADA recommended reference range LAB BUN Blood Urea Nitrogen 25 Normal 7-25 mg/dL LAB CREATT Creatinine 1.38 High 0.60-1.20 mg/dL LAB GFReNR Estimated GFR 45.770 LAB NA Sodium 144 Normal 136-145 mmol/L LAB K Potassium 4.6 Normal 3.5-5.1 mmol/L LAB CL Chloride 111 High 98-107 mmol/L LAB CO2 Carbon Dioxide 28.3 Normal 21.0-31.0 mmol/L LAB GAP Anion Gap 9.3 Normal 6.0-15.0 LAB CA Calcium 9.6 Normal 8.6-10.3 mg/dL LAB PHOS Phosphorus 3.5 Normal 2.5-4.5 mg/dL LAB ALB Albumin Level 4.1 Normal 3.5-5.7 g/dL Performed By: #### URIC, FE and TIBC, [id number], GEENA, MG, RENAL, CBCNO, [id number], PTH #### [facility] [address] MAGNESIUM Collected: 5 2:23 PM Status: F Source: [facility] TYPE CODE TESTS RESULT OUT OF RANGE REFERENCE UNITS LAB MG Magnesium 2.1 Normal 1.9-2.7 mg/dL Performed By: #### URIC, FE and TIBC, [id number], GEENA, MG, RENAL, CBCNO, [id number], PTH #### [facility] [address] [place] [id number] [facility] URIC ACID Collected: 5 2:23 PM Status: F Source: [facility] TYPE CODE TESTS RESULT OUT OF RANGE REFERENCE UNITS LAB URIC Uric Acid 5.1 Normal 2.3-6.6 mg/dL Performed By: #### URIC, FE and TIBC, [id number], GEENA, MG, RENAL, CBCNO, [id number], PTH #### [place] [id number] [facility] IRON AND TIBC PROFILE Collected: 11/18/2024 2:23 PM Status: F Source: [facility] TYPE CODE TESTS RESULT OUT OF RANGE REFERENCE UNITS LAB FE Iron 64 Normal 50-212 ug/dL LAB TIBCT Total Iron Binding Capacity 416 Normal 255-450 ug/dL LAB FESAT% % Iron Saturation 15.4 Low 20-50 % LAB TRANS Transferrin 297 Normal 203-362 mg/dL Performed By: #### URIC, FE and TIBC, [id number], GEENA, MG, RENAL, CBCNO, [id number], PTH #### [address] [address] [facility] FERRITIN Collected: 2:23 PM Status: F Source: [facility] TYPE CODE TESTS RESULT OUT OF RANGE REFERENCE UNITS LAB GEENA Ferritin 235.3 Normal 11.0-306.8 ng/mL Performed By: #### URIC, FE and TIBC, [id number], GEENA, MG, RENAL, CBCNO, [id number], PTH #### [place] [id number] [facility] VIT. B12/FOLATE PROFILE Collected: 08/2024 2:23 PM Status: F Source: [facility] TYPE CODE TESTS RESULT OUT OF RANGE REFERENCE UNITS LAB B12 Vitamin B12 934 High 180-914 pg/mL LAB FOL Folate 9.8 >5.9 ng/mL Result Comment: Folate refer ence range: >5.9 ng/ml The WHO technical consultation on folate and vitamin b12 deficiencies has determined that folate concentrations less than 4 ng/ml are considered deficient. Performed By: #### URIC, FE and TIBC, [id number], GEENA, MG, RENAL, CBCNO, [id number], PTH #### [place] [id number] [facility] VITAMIN D 25 HYDROXY TOTAL Collected: 11/18/2024 2:23 PM Status: F Source: [facility] TYPE CODE TESTS RESULT OUT OF RANGE REFERENCE UNITS LAB [id number] Vitamin D 25 Hydroxy Total 23.9 Low 30-100 ng/mL Result Comment: VITAMIN D ST ATUS 25(OH)VITAMIN D RANGE (ng/mL) Deficient <20 Insufficient 20 to <30 Sufficient 30 to 100 Reference: Karen MF,Nicole NC, Ed LI, et al. Evaluation,treatment, and prevention of vitamin D deficiency; an Endocrine Society clinical practice guideline. JCEM. 2010; 96(7):1911-30. PERFORMED BY: [facility] [address] [place] [address] PATHOLOGIST INFORMATION BROKER KRISHAN PAEZ M.D. Performed By: #### URIC, FE and TIBC, [id number], GEENA, MG, RENAL, CBCNO, [id number], PTH #### [facility] [address] [address] Observed: 11/18/2024 1:28 PM Status: COMPLETED Source: [facility] Regarding stress test result from 11/13/2024: Tk Espinoza MD to Me (Selected Message) EE 11/18/24 4:19 AM Please let her know her stress test is abnormal and I would recommend cardiac cath: CORS via L radial approach. Thanks Spoke with Sharlene and made her aware. Lab orders faxed to [facility]. She verbalized understanding. TELEPHONE Observed: 11/18/2024 12:00 AM Status: COMPLETED Source: [facility] [id number] Sharlene Humphreys [birth year] Date Provider Department Center 11/18/2024 [id number] CODY Family History Problem Relation Age of Onset Cancer Mother Heart attack Father Family Status - Relation Status Age at Mother Father ORDERS ONLY Observed: 11/17/2024 12:00 AM Status: COMPLETED Source: [facility] [id number] Sharlene Humphreys [birth year] Date Provider Department Center 11/17/2024 [id number], MARIA GUADALUPE [place] Family History Problem Relation Age of Onset Cancer Mother Heart attack Father Family Status - Relation Status Age at Mother Father OFFICE VISIT Observed: 10/16/2024 9:00 AM Status: COMPLETED Source: [facility] [id number] Sharlene Humphreys [birth year] Date Provider Department Center 10/16/2024 [id number] EH CARD [facility] Family History Problem Relation Age of Onset Cancer Mother Heart attack Father Family Status - Relation Status Age at Mother Father Level of Service:[id number] MD OFFICE/OUTPATIENT ESTABLISHED MOD MDM 30 MIN PROGRESS Observed: 10/16/2024 9:00 AM Status: COMPLETED Source: [facility] Cardiology Clinic Note Chief Complaint: Patient is here today for surgery clearance. Patient states they found a problem while doing her pre op testing. Patient states she has no idea what they found and was told to see her crown blocker. Patient complains of GARNER with walking really fast, lightheaded and dizziness when she bends over, it makes her feel like she is going to pass out. Patient denies any other cardiac symptoms. HPI: Sharlene Humphreys is a 53 y.o. female With [...] on 12/18/2023), Disp: 90 tablet, Rfl: 3 tiZANidine (Zanaflex) 4 mg capsule, Take 1 capsule as needed by oral route., Disp: , Rfl: Last Recorded Vitals BP 112/75 (BP Location: Right arm, Patient Position: Sitting) Pulse 58 Ht 1.626 m (5' 4 ) Wt 107 kg (235 lb) SpO2 95% BMI 40.34 kg/m??? Physical Examination: GENERAL: alert and oriented x3, well developed, in no acute distress. HEAD: atraumatic, normocephalic. EYES: GREG, EOMI. NECK: trachea midline, no JVD present, questionable R carotid bruit present. CARDIAC: S1, S2 present. RRR. No [...] Right ventricle: Mild dilatation normal right ventricular systolic function. Tricuspid valve: Normal mobility and thickness. No stenosis with trivial regurgitation. Mild pulmonary hypertension. RVSP 40 mmHg. Mitral valve: Normal mobility and thickness. No evidence of mitral valve stenosis. There is no mitral annular calcification. Mild mitral regurgitation Aortic valve: Normal trileaflet appearance. No visible sclerosis. Normal leaflet mobility. No evidence of aortic valve stenosis. No aortic regurgitation. Aortic root: Normal diameter and appearance. Normal size ascending aorta measuring 3.6 cm Pulmonic valve: Normal thickness and mobility. No stenosis. Trivial regurgitation. Pericardium: Trivial pericardial effusion Echocardiogram: 01/28/2021 Normal ventricular systolic function. LVEF [...] mid LAD stent 3. Otherwise normal coronary arteries 4. Normal left ventricular systolic function with LVH and elevated LVEDP with sleep apnea symptoms/snoring up to 50 mmHg Stress test: 03/29/2021 Expected pressure reversible ischemia in the anterior wall, LAD distribution. Further evaluation is recommended Borderline transient ischemic dilatation ratio of 1.2 Nondiagnostic exercise test secondary to inverted T waves 12 lead EKG 10/17/2023 Sinus bradycardia 53 bpm Septal infarct age indeterminant Abnormal EKG Assessment: Coronary artery disease, prior PCI/stent placement Essential hypertension Heart failure with preserved ejection fraction (HFpEF) Mild mitral regurgitation Mildly elevated RVSP 40 mmHg 2022 Dyslipidemia Type 2 diabetes mellitus - loonmgstanding Dizziness, lightheadedness and syncope - Likely medication side effect Carotid bruit Abnormal EKG Preop evaluation Plan: Her symptoms and EKG are concerning; I recommended a Lexiscan stress test prior to surgery for more refined risk stratification; if no ischemia is found, she would be at acceptable risk to proceed. Recommend strict heart rate and blood pressure control and avoidance of major fluid shifts perioperatively. For her symptoms as well as her EKG findings of bradycardia, we will place a 30-day event monitor. I am concerned about possible episodic advanced AV block or long pauses. Continue current medical therapy for heart failure with preserved ejection fraction as well as coronary artery disease I will see her after testing Tk Espinoza MD, MPH, [facility], [facility], [facility] Interventional Cardiology Pager Email: [email or web address] CBC WITHOUT DIFF Collected: 03/11/2024 11:35 AM Status: F Source: [facility] TYPE CODE TESTS RESULT OUT OF RANGE REFERENCE UNITS LAB WBC White Blood Count 5.1 Normal 3.8-11.6 10*3/uL LAB RBC Red Blood Count 3.83 Normal 3.60-5.00 10*6/u L LAB HGB Hemoglobin 11.4 Low 11.8-15.4 g/dL LAB HCT Hematocrit 34.9 Normal 34.0-46.4 % LAB MCV Mean Corpuscular Volume 91.3 Normal 80-100 fL LAB MCH Mean Corpuscular Hemoglobin 29.7 Normal 24.7-34.3 pg LAB MCHC Mean Corpuscular HGB Conc 32.6 Normal 32.0-35.0 g/dL LAB RDW Red Cell Distribution Width 14.6 Normal 11.9-15.3 % LAB PLT Platelet Count 328 Normal 150-450 10*3/uL LAB MPV Mean Platelet Volume 8.7 Normal 6.3-10.7 fL Result Comment: PERFORMED BY : [facility] [place] [address] PATHOLOGIST INFORMATION BROKER SHANIQUE CALDERON M.D. Performed By: #### [id number] , [id number], PROCRERAT, FE and TIBC, URIC, URMACRERAT, UA, MG, PTH, RENAL, CBCNO, GEENA #### [place] [id number] [facility] URINALYSIS Collected: 11:35 AM Status: F Source: [facility] Order Comment: Name Collecti on Type:: Clean-Voided Midstream TYPE CODE TESTS RESULT OUT OF RANGE REFERENCE UNITS LAB UCOL Color,Urine Light-Yellow Yellow LAB UAPP Appearance,Uri ne Clear Clear LAB USG Specificy [place],Urine 1.011 Normal 1.001-1.030 LAB UPH pH,Urine 5.5 Normal 5.0-9.0 LAB ULE Leukocyte Esterase,Urine Negative Negative LAB UNIT Nitrite,Urine Negative Negative LAB UPRO Protein,Urine Negative Negative LAB UGL Glucose,Urine (UA) Normal Normal LAB UKET Ketones,Urine Negative Negative LAB UURO Urobilinogen,U rine Normal Normal LAB UBIL Bilirubin,Urin e Negative Negative LAB UBLD Occult Blood,Urine Negative Negative Result Comment: PERFORMED BY : [place] [address] PATHOLOGIST INFORMATION BROKER SHANIQUE CALDERON M.D. Performed By: #### [id number] , [id number], PROCRERAT, FE and TIBC, URIC, URMACRERAT, UA, MG, PTH, RENAL, CBCNO, GEENA #### [place] [id number] [facility] PARATHYROID HORMONE INTACT Collected: 03/11/2024 11:3 5 AM Status: F Source: [facility] TYPE CODE TESTS RESULT OUT OF RANGE REFERENCE UNITS LAB PTH Parathyroid Hormone Intact 30.6 Normal 12-88 pg/mL Result Comment: PERFORMED BY : [place] [address] PATHOLOGIST INFORMATION BROKER SHANIQUE CALDERON M.D. Performed By: #### [id number] , [id number], PROCRERAT, FE and TIBC, URIC, URMACRERAT, UA, MG, PTH, RENAL, CBCNO, GEENA #### [facility] [address] [place] [id number] [facility] MICROALB CREAT RATIO,U Collected: 03/11 11:35 AM Status: F Source: [facility] TYPE CODE TESTS RESULT OUT OF RANGE REFERENCE UNITS LAB UMAT Microalbumin , Urine <0.7 Normal 0.0-1.8 mg/dL LAB UCREA Creatinine, Urine (Random) 57.00 mg/dL Result Comment: No reference range established LAB MACREATRATIO Microalbumin /Creatinine Ratio Test not performed 0.0-30.0 Performed By: #### [id number] , [id number], PROCRERAT, FE and TIBC, URIC, URMACRERAT, UA, MG, PTH, RENAL, CBCNO, GEENA #### [place] [id number] [facility] PROTEIN CREAT RATIO UR RANDOM Collected : 03/11/2024 11:35 AM Status: F Source: [facility] TYPE CODE TESTS RESULT OUT OF RANGE REFERENCE UNITS LAB UTPTT Protein, Urine (Random) 5 Normal 0-9 mg/dL LAB UTPCREAT Urine Protein/Crea tinine Ratio 88 Normal 0-200 mg/g{Cre} Result Comment: PERFORMED BY : [place] [address] PATHOLOGIST INFORMATION BROKER SHANIQUE CALDERON M.D. Performed By: #### [id number] , [id number], PROCRERAT, FE and TIBC, URIC, URMACRERAT, UA, MG, PTH, RENAL, CBCNO, GEENA #### [place] [id number] [facility] RENAL FUNCTION PANEL Collected: 11:35 AM Status: F Source: [facility] TYPE CODE TESTS RESULT OUT OF RANGE REFERENCE UNITS LAB GLU Glucose 88 Normal 70-100 mg/dL Result Comment: Random Gluco se Reference Range is dependent on time and content of last meal. Glucose of more than 200 mg/dL in a nonstressed, ambulatory subject supports the diagnosis of Diabetes Mellitus. ADA recommended reference range LAB BUN Blood Urea Nitrogen 18 Normal 7-25 mg/dL LAB CREATT Creatinine 1.50 High 0.60-1.20 mg/dL LAB GFReNR Estimated GFR 41.412 mL/Min LAB NA Sodium 143 Normal 136-145 mmol/L LAB K Potassium 4.5 Normal 3.5-5.1 mmol/L LAB CL Chloride 110 High 98-107 mmol/L LAB CO2 Carbon Dioxide 25.0 Normal 21.0-31.0 mmol/L LAB GAP Anion Gap 12.5 Normal 6.0-15.0 meq/L LAB CA Calcium 9.4 Normal 8.6-10.3 mg/dL LAB PHOS Phosphorus 2.7 Normal 2.5-4.5 mg/dL LAB ALB Albumin Level 3.9 Normal 3.5-5.7 g/dL Performed By: #### [id number] , [id number], PROCRERAT, FE and TIBC, URIC, URMACRERAT, UA, MG, PTH, RENAL, CBCNO, GEENA #### [facility] [address] [place] [id number] [facility] MAGNESIUM Collected: 11:35 AM Status: F Source: [facility] TYPE CODE TESTS RESULT OUT OF RANGE REFERENCE UNITS LAB MG Magnesium 1.9 Normal 1.9-2.7 mg/dL Performed By: #### [id number] , [id number], PROCRERAT, FE and TIBC, URIC, URMACRERAT, UA, MG, PTH, RENAL, CBCNO, GEENA #### [facility] [address] [place] [id number] [facility] URIC ACID Collected: 11:35 AM Status: F Source: [facility] TYPE CODE TESTS RESULT OUT OF RANGE REFERENCE UNITS LAB URIC Uric Acid 6.3 Normal 2.3-6.6 mg/dL Performed By: #### [id number] , [id number], PROCRERAT, FE and TIBC, URIC, URMACRERAT, UA, MG, PTH, RENAL, CBCNO, GEENA #### [facility] [address] [place] [id number] [facility] IRON AND TIBC PROFILE Collected: 03/11/2024 11:35 AM Status: F Source: [facility] TYPE CODE TESTS RESULT OUT OF RANGE REFERENCE UNITS LAB FE Iron 118 Normal 50-212 ug/dL LAB TIBCT Total Iron Binding Capacity 392 Normal 255-450 ug/dL LAB FESAT% % Iron Saturation 30.1 Normal 20-50 % LAB TRANS Transferrin 280 Normal 203-362 mg/dL Performed By: #### [id number] , [id number], PROCRERAT, FE and TIBC, URIC, URMACRERAT, UA, MG, PTH, RENAL, CBCNO, GEENA #### [facility] [address] [place] [address] [facility] FERRITIN Collected: 11:35 AM Status: F Source: [facility] TYPE CODE TESTS RESULT OUT OF RANGE REFERENCE UNITS LAB GEENA Ferritin 135.5 Normal 11.0-306.8 ng/mL Performed By: #### [id number] , [id number], PROCRERAT, FE and TIBC, URIC, URMACRERAT, UA, MG, PTH, RENAL, CBCNO, GEENA #### [facility] [address] [place] [address] [facility] VIT. B12/FOLATE PROFILE Collected: 02/15 11:35 AM Status: F Source: [facility] TYPE CODE TESTS RESULT OUT OF RANGE REFERENCE UNITS LAB B12 Vitamin B12 4548 High 180-914 pg/mL LAB FOL Folate 8.2 >5.9 ng/mL Result Comment: Folate refer ence range: >5.9 ng/ml The WHO technical consultation on folate and vitamin b12 deficiencies has determined that folate concentrations less than 4 ng/ml are considered deficient. Performed By: #### [id number] , [id number], PROCRERAT, FE and TIBC, URIC, URMACRERAT, UA, MG, PTH, RENAL, CBCNO, GEENA #### [facility] [address] [place] [address] [facility] VITAMIN D 25 HYDROXY TOTAL Collected: 05/11/2023 11:35 AM Status: F Source: [facility] TYPE CODE TESTS RESULT OUT OF RANGE REFERENCE UNITS LAB [id number] Vitamin D 25 Hydroxy Total 25.0 Low 30-100 ng/mL Result Comment: VITAMIN D ST ATUS 25(OH)VITAMIN D RANGE (ng/mL) Deficient <20 Insufficient 20 to <30 Sufficient 30 to 100 Reference: Karen KIRBY,Nicole NC, Ed LI, et al. Evaluation,treatment, and prevention of vitamin D deficiency; an Endocrine Society clinical practice guideline. JCEM. 2010; 96(7):1911-30. PERFORMED BY: [facility] [address] [place] [id number] PATHOLOGIST INFORMATION BROKER SHANIQUE CALDERON M.D. Performed By: #### [id number] , [id number], PROCRERAT, FE and TIBC, URIC, URMACRERAT, UA, MG, PTH, RENAL, CBCNO, GEENA #### [facility] [address] [place] [address] [facility] ALLERGIES DATE TYPE / CODE NAME / CODE REACTION SEVERITY SOURCE 11/26/2024 Drug Allergy/416 087763(SNOM ED CT) Penicillins/[id number]( RXNORM) Rash Unknown [facility] 11/26/2024 Drug Allergy/416 678354(SNOM ED CT) prochlorperazine/Z37467 1478(RXNORM) Seizure Unknown [facility] 11/26/2024 Drug Allergy/416 539383(SNOM ED CT) sulfamethoxazole/P82336 2827(RXNORM) Rash Unknown [facility] 11/26/2024 Drug Allergy/416 311982(SNOM ED CT) trimethoprim/[id number] (RXNORM) Rash Unknown [facility] 11/26/2024 Drug Allergy/416 206764(SNOM ED CT) zolpidem/[id number](RXN ORM) Unknown Reaction Unknown [facility] 11/26/2024 Drug Allergy/416 349585(SNOM ED CT) promethazine/[id number] (RXNORM) Seizure Unknown [facility] 11/26/2024 Drug Allergy/416 834753(SNOM ED CT) empagliflozin/[id number] 2(RXNORM) Unknown Reaction Unknown [facility] 10/16/2023 DRUG INGREDI/419 681248(SNOM ED CT) ZOLPIDEM Unknown [facility] 09/29/2022 DRUG INGREDI/419 110933(SNOM ED CT) EMPAGLIFLOZIN [facility] 06/22/2016 DRUG INGREDI/419 808821(SNOM ED CT) ESOMEPRAZOLE MAGNESIUM Other [facility] 06/22/2016 DRUG INGREDI/419 997779(SNOM ED CT) OMEPRAZOLE (Inactive) Nausea Only [facility] 06/22/2016 DRUG INGREDI/419 912430(SNOM ED CT) PANTOPRAZOLE (Inactive) Nausea Only [facility] 09/17/2015 DRUG/877210 003(SNOMED CT) PHENERGAN PLAIN [facility] 04/03/2014 DRUG/232929 003(SNOMED CT) SULFAMETHOXAZOLE-TRIMET HOPRIM Other~Rash [facility] 06/27/2013 DRUG INGREDI/419 834013(SNOM ED CT) CEPHALEXIN Other~Rash [facility] 06/27/2013 Drug Class/60541 1003(SNOMED CT) PENICILLINS Other~Rash [facility] 06/27/2013 DRUG INGREDI/419 521231(SNOM ED CT) PROCHLORPERAZINE Other [facility] 06/27/2013 DRUG INGREDI/419 409958(SNOM ED CT) SULFAMETHOXAZOLE Other~Rash [facility] 06/27/2013 DRUG INGREDI/419 193418(SNOM ED CT) PROMETHAZINE Other [facility] 06/27/2013 DRUG INGREDI/419 668946(SNOM ED CT) DOXYCYCLINE CALCIUM Other [facility] ENCOUNTERS ADMIT/DISCHARGE ACCOUNT NUMBER ADMITTING ENCOUNTER CLASS LOCATION SOURCE 12/30/2024 [id number] Ambulatory Building:[facility] 12/12/2024 [id number] Ambulatory Building:[facility] 12/12/2024 [id number] Ambulatory Building:[facility] 12/12/2024/12/13/19 [id number] TK ESPINOZA Ambulatory Buildin 0Room: [facility] VASCULAR POOLBed: 2429 [facility] 11/18/2024/11/19/19 25 [id number] [facility] 11/06/2024 [id number] [facility] Antunez [facility] 11/03/2024/11/04/19 25 [id number] Ambulatory Building:[facility] 10/16/2024/10/17/19 25 [id number] Ambulatory Building:[facility] 09/03/2024/09/04/19 25 [id number] Ambulatory Building:[facility]IC 06/16/2024/06/17/19 25 [id number] Ambulatory Building:[facility] 03/11/2024/03/11/20 24 [id number] [facility] 03/06/2024/03/06/20 24 [id number] [facility] 02/19/2024/02/19/20 24 [id number] Ambulatory Building:[facility] EPIC PAYERS ENCOUNTER GUARANTOR PAYER SUBSCRIBER SOURCE 12/30/2024 Sharlene Patel MinierDOB: [place], [place] [address]Ult: (HP) Primary Insurance:[facility] Dental ClaimsPolicy Number: [id number] Date:[facility] [address] [id number]: Sharlene Patel MinierDOB: [id number] [place], [place] [address]Sen: (HP) [facility] 12/12/2024 Primary Insurance:[facility]ENTERPolicy Number: [id number] e Date:2023-04-16 SHARLENE Patel MINIERDOB: [id number] [place] [address] [facility] 12/12/2024 Primary Insurance:MARSHALL LYNNELURDES OHIOPolicy Number: [id number] e Date:2023-04-16 SHARLENE Patel MINIERDOB: [id number] [place] [address] [facility] 12/12/2024 Primary Insurance:MARSHALL FUCHS OHIOPolicy Number: [id number] e Date:2023-04-16 SHARLENE A MINIERDOB: [id number] [place] [address] [facility] 11/18/2024 Sharlene A [id number] [facility] [place] [address]Dta: (HP) Primary Insurance:Marshall BATISTA/BSPolicy Number: [id number] e Date:2024-11-17 Sharlene A MinierDOB: [id number] [facility] [place] [address]Ueg: () [facility] 11/18/2024 Secondary Insurance:Self PayPolicy Number: Effective Date:2024-11-17 [facility] 11/06/2024 Sharlene Patel [id number] [facility] [place] [address]Nhn: (HP) Primary Insurance:Self PayPolicy Number: Effective Date:2022-08-21 [facility] 11/03/2024 SHARLENE MINIERDOB: [id number] [place], [place] [address]Pip: (HP) Primary Insurance:JEFPolicy Number: [id number] e Date:2023-04-16 SHARLENE MINIERDOB: [id number] [place] [address] [facility] 10/16/2024 Primary Insurance:MARSHALL LYNNELURDES OHIOPolicy Number: [id number] e Date:2023-04-16 SHARLENE Patel MINIERDOB: [id number] [place] [address] [facility] 09/03/2024 SHARLENE MINIERDOB: [place] [address]Waq: (HP) Primary Insurance:BCBSPolicy Number: [id number] e Date:2023-04-16 SHARLENE MINIERDOB: [id number] [place] [address] [facility] EPIC 06/16/2024 SHARLENE MINIERDOB: [place] [address]Ezk: (HP) Primary Insurance:BCBSPolicy Number: [id number] e Date:2023-04-16 SHARLENE MINIERDOB: [id number] [place] [address] [facility] EPIC 03/11/2024 Sharlene A [id number] [place] [address]Tss: (HP) Primary Insurance:Marshall BATISTA/Beatrice Number: [id number] e Date:2024-01-28 Sharlene Amanda MinierDOB: [id number] [place] [address]Nih: (HP) [facility] 03/11/2024 Secondary Insurance:Self PayPolicy Number: Effective Date:2024-01-28 [facility] 03/06/2024 SHARLENE MINIERDOB: [place] [address]Jxn: (HP) Primary Insurance:BCBSPolicy Number: [id number] e Date:2023-04-16 SHARLENE MINIERDOB: [id number] [place] [address] [facility] 02/19/2024 SHARLENE MINIERDOB: [id number] [place] [address]Rnt: () Primary Insurance:[facility] Number: [id number] e Date:2023-04-16 SHARLENE MINIERDOB: [id number] [place] [address] [facility]
--- NOTE | 2025-01-13 11:18 | ECG_ITS ---
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 Measurements Intervals [place] Rate: 54 P: 41 [place]: 173 QRS: -13 QRSD: 102 T: 5 QT: 412 QTc: 392 Interpretive Statements SINUS BRADYCARDIA INFERIOR MYOCARDIAL INFARCTION [40+ ms Q WAVE AND/OR ST/T ABNORMALITY IN II/aVF], PROBABLY OLD Abnormal ECG Compared to ECG 10/07/2024 10:01:34 No significant changes Electronically Signed On 01-13-2025 19:57:48 EDT by LITO EDEN M.D.
[2025-01-13 11:57] LABS: Anion Gap 11.7; Blood Urea Nitrogen 28.0 mg/dL (7.0-18.0); Calcium 9.4 mg/dL (8.5-10.1); Carbon Dioxide 27.8 mmol/L (21.0-32.0); Chloride 108 mmol/L (98-107); Estimated GFR (African America 55 (>=60 mL/min/1.73m^2); Estimated GFR (Non-African Ame 46 (>=60 mL/min/1.73m^2); Glucose 92 mg/dL (74-106); Potassium 4.5 mmol/L (3.5-5.1); Sodium 143 mmol/L (136-145)
[2025-01-13 12:16] LABS: Hematocrit 34.8 % (36.0-48.0); Hemoglobin 11.3 g/dL (12.0-16.0); Immature Granulocytes Abs Auto 0.01 10^3/uL (0.00-0.03); Immature Granulocytes Pct Auto 0.2 % (0.0-0.5); Lymphocytes Absolute Auto 1.6 10^3/uL (1.2-3.8); Mean Corpuscular HGB Conc 32.5 g/dL (29.9-35.2); Mean Corpuscular Hemoglobin 30.1 pg (26.7-34.0); Mean Corpuscular Volume 92.8 fL (81.0-99.0); Platelet Count 253 10^3/uL (150-450); Red Blood Count 3.75 10^6/uL (4.20-5.40); White Blood Count 4.9 10^3/uL (4.0-11.0)
[2025-01-13 12:21] LABS: INR 1.01; Partial Thromboplastin Time 27.9 sec (22.3-36.2); Prothrombin Time 10.7 sec (9.0-11.6)
== END 2025-01-13 10:48 | disposition home or self-care (01) ==
LOC: PST 10:48
PROVIDERS: PCP Nurse Practitioner; Visit Provider Anesthesiology
DX: Z01.810 Encounter for preprocedural cardiovascular examination (principal); Z01.812 Encounter for preprocedural laboratory examination; M96.1 Postlaminectomy syndrome, not elsewhere classified
CPT/HCPCS: 36415; 80048; 85025; 85610; 85730; 93005

== ENCOUNTER 2025-01-26 06:05 | Day surgery (SDC) | payer BC, SELFPAY ==
--- OUTSIDE RECORDS SUMMARY | 2024-02-29 05:00 | XMS_ITS ---
Author Organization [facility] Address [address] [place] [address] Care Team Providers Care Napper Grinder Name Role Phone ELIZABETH DIAMOND CNP Primary Care Provider Leatha Garrison Unavailable [phone] REASON FOR VISIT LUMBAR PAIN Encounters Encounter Location Date Provider Diagnosis [facility] Office [address] [place] [address] [place] [address] 02/29/2024 Leatha Hernandez Lumbar pain M54.50 Assessments Encounter Date Diagnosis (ICD Code) Assessment Notes Treatment Notes Treatment Clinical Notes Section Notes 02/29/2024 Lumbar pain (ICD-10 - M54.50) Plan Of Treatment Pending Test Test Name Order Date Lumbar spine, 4v flex ext - 89651 2023 Progress Notes * SHARLENE HUMPHREYS ADOB: [birth year] (54 yo F)Acc No.[id number]:02/29/2024 Patient: SHARLENE MILLER Provider: Lizet Loya MD, PhD :1970 A ge:53 Y S ex:Female Date:02/29/2024 Address:[address], [place] Pcp:ELIZABETH DIAMOND CNP Subjective: * Chief Complaints: * 1 . LUMBAR PAIN. * Medical History: Objective: * Vitals: Assessment: * Assessment: 1. L umbar pain - M54.50 (Primary) Plan: * Treatment: Forms: * Images: * Electronic signature of John Paul Hernandez MD, PHD on 01/26/2025 at 06:08 AM EDT Sign off status: Pending * Provider: Lizet Loya MD, PhD Date: 04/30/2023 Generated for Cinthia franco/Sony/Stephanie on: 06:08 AM EDT
--- OUTSIDE RECORDS SUMMARY | 2024-03-21 05:00 | XMS_ITS ---
Author Organization [facility] Address [address] [place] [address] Care Team Providers Care Stone Finisher Name Role Phone ELIZABETH DIAMOND CNP Primary Care Provider Leatha Garrison Unavailable [phone] REASON FOR VISIT LUMBAR PAIN Encounters Encounter Location Date Provider Diagnosis [facility] Office [address] [place] [address] [place] [address] 03/21/2024 Leatha Hernandez Plan Of Treatment Pending Test Test Name Order Date Lumbar spine, 4v flex ext - 00500 2023 Progress Notes * SHARLENE HUMPHREYS ADOB: [birth year] (54 yo F)Acc No.[id number]:03/21/2024 Patient: SHARLENE MILLER Provider: Lizet Loya MD, PhD :1970 A ge:53 Y S ex:Female Date:03/21/2024 [facility]-[address] Pcp:ELIZABETH DIAMOND CNP Subjective: * Chief Complaints: * 1 . LUMBAR PAIN. * Medical History: Objective: * Vitals: Assessment: Plan: * Treatment: Forms: * Images: * Electronic signature of John Paul Hernandez MD, PHD on 01/26/2025 at 06:08 AM EDT Sign off status: Pending * Provider: Lizet Loay MD, PhD Date: 05/22/2023 Generated for Cinthia franco/Sony/eTransmitting on: 06:08 AM EDT
--- OUTSIDE RECORDS SUMMARY | 2024-04-04 06:30 | XMS_ITS ---
Author Organization [facility] Address [address] [place] [address] Care Team Providers Care Bull Gang Supervisor Name Role Phone ELIZABETH DIAMOND CNP Primary Care Provider Leatha Garrison Unavailable [phone] REASON FOR VISIT BACK PAIN , SCS CONSULT, MRI/DREW Encounters Encounter Location Date Provider Diagnosis [facility] [address] [place] [address] [place] [address] 04/04/2024 Leatha Hernandez Plan Of Treatment Pending Test Test Name Order Date Lumbar spine, 4v flex ext - 41053 2023 Progress Notes * SHARLENE HUMPHREYS ADOB: [birth year] (54 yo F)Acc No.[id number]:04/04/2024 Patient: SHARLENE MILLER Provider: Lizet Loya MD, PhD :1970 A ge:53 Y S ex:Female Date:04/04/2024 [address] [facility]ITALLQ-[address] Pcp:ELIZABETH DIAMOND CNP Subjective: * Chief Complaints: * 1 . BACK PAIN , SCS CONSULT, MRI/DREW. * Medical History: Objective: * Vitals: Assessment: Plan: * Treatment: Forms: * Images: * Electronic signature of John Paul Hernandez MD, PHD on 01/26/2025 at 06:08 AM EDT Sign off status: Pending * Provider: Lizet Loya MD, PhD Date: 06/05/2023 Generated for Cinthia franco/Sony/Stephanie on: 1 06:08 AM EDT
[2024-10-07 12:03] VITALS: BP 113/73; PULSE 59; TEMP 36.3; O2SAT 97; BMI 40.2
[2025-01-13 11:09] VITALS: BP 155/88; PULSE 64; TEMP 36.6; O2SAT 99; BMI 40.2
--- OUTSIDE RECORDS SUMMARY | 2025-01-26 06:08 | XMS_ITS | Encounter Summary ---
Author Organization [facility] Address [address] [place] [address] Care Team Providers Care Insurance Claims Assistant Name Role Phone Markel Braxton MD Primary Care Provider [phone] Janene Lew NP Unavailable [phone] Encounter Details Date Type Department Care [...] No 05/02/2023 Social Connection and Isolation Panel Answer Date Recorded In a typical week, how many times do you talk on the phone with family, friends, or neighbors? Once a week 05/02/2023 How often do you get together with friends or re latives? Once a week 05/02/2023 How often do you attend alevism or judaism serv ices? Never 05/02/2023 Do you belong to any clubs o r organizations such as alevism groups, unions, fraternal or athletic groups, or [...] in a custodial (including now)? Yes 05/02/2023 Comments Unknown Sex and Gender Information Value Date Recorded Sex Assigned at Not on file Legal Sex Female 7:05 PM EDT Gender Identity Not on file Sexual Orientation Not on file documented as of this encounter Plan of Treatment Upcoming Encounters Date Type Department Care Team (Late st Contact Info) Description 05/05/2025 10:15 AM EST Office Visit [facility] [address] [place] [address] Marya Loya DO [address] [place] [address] documented as of this encounter Procedures Procedure Name Priority Date/Time Associated Diagnosis Comments CA ECHO DOPPLER COMPLETE 05/10/2023 2:37 PM EST documented in this encounter Results * CA ECHO DOPPLER COMPLETE (05/10/2023 2:37 PM EST) Anatomical Region Laterality Modality Other 05/10/2023 2:37 PM EST Narrative 05/10/2023 2:39 PM EST The [address] [address] Cardiology Report Signed Patient: SHARLENE HUMPHREYS MR#: [id number] : 1970 Acct:[id number] Age/Sex: 52 / F ADM Date: 05/10/23 Loc: CARD Attending Dr: Radu Arias INFORMATION TECHNOLOGY ACCOUNT MANAGER Ordering Physician: Radu Arias NP Date of Service: 05/10/23 Procedure(s): CA echo doppler complete Accession Number(s): [id number] cc: Janene Lew INFORMATION TECHNOLOGY ACCOUNT MANAGER; Radu Arias ELIER Patient Name: SHARLENE HUMPHREYS MR#: [id number] : 1970 Exam Date: 05/10/2023 Ordering Doctor: [...] Signed By: 05/10/23 1439 DD/ 1437 TD/TT: Hospitality Associate: Procedure Note Radiology, Radiologist, - 05/10/2023 [place] [address] Cardiology Report Signed Patient: SHARLENE HUMPHREYS AMR#: [id number] : 1970Acct:[id number] Age/Sex: 52 / FADM Date: 05/10/23 Loc: CARD Attending Dr: Radu Arias NP Ordering Physician: Radu Arias NP Date of Service: 05/10/23 Procedure(s): CA echo doppler complete Accession Number(s): [id number] cc: Janene Lew INFORMATION TECHNOLOGY ACCOUNT MANAGER; Radu Arias NP Patient Name: SHARLENE HUMPHREYS MR#: [id number] : 1970 Exam Date: 05/10/2023 Ordering Doctor: [...] Tk Godoy M.D. Signed By:05/10/23 1439 DD/ 143 TD/TT: Hospitality Associate: us Generic External Data Provider [facility] Final Result documented in this encounter Visit Diagnoses Not on filedocumented in this encounter Additional Health Concerns Assessment Noted Time PHQ-9 Depression Total Score: 16 024 1:18 PM EST documented as of this encounter Care Teams Insurance Claims Assistant Relationship Specialty Start Date End Date Markel Braxton MD PCP - General Family Medicine 05/03/23 Janene Lew NP [address] [place] [address] PCP - Marshall Jaimes 09/15/23 documented as of this encounter
--- OUTSIDE RECORDS SUMMARY | 2025-01-26 06:08 | XMS_ITS | Encounter Summary ---
Author Organization [facility] Address [address] [place] [address] Care Team Providers Care Lap Machine Operator Name Role Phone Janene Lew MD Primary Care Provider [phone] Reason for Visit * Reason Comments Med Refill Encounter Details Date Type Department Care Team (Late st Contact Info) Description 09/24/2022 Refill [facility] [address] [place] [phone] Tk Godoy MD [address] [facility] [address] [facility] [place] [phone] Unstable angina pectoris (CMS/HCC) Social History Tobacco [...] syndrome documented in this encounter Care Teams Lap Machine Operator Relationship Specialty Start Date End Date Jannee Lew MD [address] [place] [address] PCP - General 09/26/22 documented as of this encounter
--- OUTSIDE RECORDS SUMMARY | 2025-01-26 06:08 | XMS_ITS | Encounter Summary ---
Author Organization [facility] Address [address] [place] [address] Care Team Providers Care Fox Farmer Name Role Phone Markel Braxton MD Primary Care Provider [phone] Encounter Details Date Type Department Care Team (Late st Contact Info) Description 11/17/2024 Abstract [facility] [address] [place] [address] Janene Lew, REWEAVER [address] [place] [address] Social History Tobacco Use Types Packs/Day Years [...] or ex-partner? No 11/18/2024 Social Connection and Isolation Panel Answer Date Recorded In a typical week, how many times do you talk on the phone with family, friends, or neighbors? More than three times a week 11/18/2024 How often do you get togethe r with friends or relatives? Once a week 11/18/2024 How often do you attend [facility] or worship services? Never 11/18/2024 Do you belong to any clubs o r organizations such as muslim groups, unions, fraternal or athletic groups, or [...] Recorded Patient Health Questionnaire-2 Score 0 11/03/2024 [facility] Occupational Stress Questionnaire [...] in the past 12 m [facility], were you homeless or living in a residential (including now)? No 11/18/2024 Comments Unknown Sex and Gender Information Value Date Recorded Sex Assigned at Not on file Legal Sex Female 7:05 PM EDT Gender Identity Not on file Sexual Orientation Not on file documented as of this encounter Functional Status * AUDIT-C Score Answer Date of Assessment Author 0 [...] Assessment Author Never 11/18/2024 5:27 PM EDT Fransiscat, Generic documented as of this encounter Plan of Treatment Upcoming Encounters Date Type Department Care Team (Late st Contact Info) Description 05/05/2025 10:15 AM EST Office Visit [facility] [address] [place] [address] Marya Loya, [address] [place] [address] documented as of this encounter Visit Diagnoses Not on filedocumented in this encounter Additional Health Concerns Assessment Noted Time PHQ-9 Depression Total Score: 16 024 1:18 PM EST documented as of this encounter Care Teams Fox Farmer Relationship Specialty Start Date End Date Markel Braxton MD PCP - General Family Medicine 05/03/23 documented as of this encounter
--- OUTSIDE RECORDS SUMMARY | 2025-01-26 06:08 | XMS_ITS | Encounter Summary ---
Author Organization [facility] Address [address] [place] [address] Care Team Providers Care Mud Cleaner Operator Name Role Phone Janene Lew MD Primary Care Provider [phone] Reason for Visit * Reason Comments Med Refill Encounter Details Date Type Department Care Team ([facility] st Contact Info) Description 11/22/2022 Refill [facility] [address] [place] [phone] Tk Godoy MD [address] [facility] [address] [facility] [place] [phone] Hyperlipidemia, unspecified hyperlipidemia type Social History Tobacco [...] type documented in this encounter Care Teams Mud Cleaner Operator Relationship Specialty Start Date End Date Janene Lew MD [address] [place] [address] PCP - General 09/26/22 documented as of this encounter
--- OUTSIDE RECORDS SUMMARY | 2025-01-26 06:08 | XMS_ITS | Encounter Summary ---
Author Organization [facility] Address [address] [place] [address] Care Team Providers Care Glass Breaker Name Role Phone Markel Braxton MD Primary Care Provider [phone] Encounter Details Date Type Department Care Team (Late st Contact Info) Description 11/25/2024 Abstract [facility] [address] [place] [address] Janene Lew, LICENSED PRACTICAL NURSE [address] [place] [address] Social History Tobacco Use Types Packs/Day Years [...] week 11/18/2024 How often do you attend [facility] or jew services? Never 11/18/2024 Do you belong to [...] Recorded Patient Health Questionnaire-2 Score 0 11/03/2024 [facility] - [facility]ational Stress Questionnaire Answer Date [...] place to sleep or slept in a snf (including now)? Yes 05/02/2023 Housing Stability Vital [...] were you homeless or living in a snf (including now)? No 11/18/2024 Comments Unknown Sex [...] [address] [place] [phone] Marya Loya, [address] [place] [address] documented as of this encounter Visit Diagnoses Not on filedocumented in this encounter Additional Health Concerns Assessment Noted Time PHQ-9 Depression Total Score: 16 024 1:18 PM EST documented as of this encounter Care Teams Glass Breaker Relationship Specialty Start Date End Date Markel Braxton MD PCP - General Family Medicine 05/03/23 documented as of this encounter
--- OUTSIDE RECORDS SUMMARY | 2025-01-26 06:08 | XMS_ITS | Encounter Summary ---
Author Organization [facility] Address [address] [place] [address] Care Team Providers Care Armored Car Messenger Name Role Phone Janene Lew MD Primary Care Provider [phone] Reason for Visit * Reason Comments Med Refill Encounter Details Date Type Department Care Team (Late st Contact Info) Description 08/24/2022 Refill [facility] [address] [place] [phone] Tk Godoy MD [address] [facility] [address] [facility] [place] [phone] Palpitations; Hyperlipidemia, unspecified hyperlipidemia type Social History [...] type documented in this encounter Care Teams Armored Car Messenger Relationship Specialty Start Date End Date Janene Lew MD [address] [place] [address] PCP - General 09/26/22 documented as of this encounter
--- OUTSIDE RECORDS SUMMARY | 2025-01-26 06:08 | XMS_ITS | Encounter Summary ---
Author Organization [facility] Address [address] [place] [address] Care Team Providers Care Voltmeter Operator Name Role Phone Janene Lew MD Primary Care Provider Reason for Visit * Reason Comments Med Refill Encounter Details Date Type Department Care Team (Late st Contact Info) Description 11/22/2022 Refill [facility] [address] [place] [address] Radu Arias CNP Essential hypertension [...] hypertension documented in this encounter Care Teams Voltmeter Operator Relationship Specialty Start Date End Date Janene Lew MD [address] [place] [address] PCP - General 09/26/22 documented as of this encounter
--- OUTSIDE RECORDS SUMMARY | 2025-01-26 06:08 | XMS_ITS | Clinical Summary ---
Author Organization [facility] Address [address] [facility] [place] [address] Phone Care Team Providers Care Deputy Chief Executive Name Role Phone Unavailable Primary Care Provider [...]
--- OUTSIDE RECORDS SUMMARY | 2025-01-26 06:08 | XMS_ITS | Encounter Summary ---
Author Organization [facility] Address [address] [place] [address] Care Team Providers Care Compression Molding Machine Operator Name Role Phone Markel Braxton MD Primary Care Provider [phone] Encounter Details Date Type Department Care Team (Late st Contact Info) Description 11/25/2024 Orders Only [facility] [address] [facility] [phone] Social History Tobacco Use Types Packs/Day Years [...] often do you attend chur ch or holiness services? Never 11/18/2024 Do you belong to any clubs o r organizations such as pentecostalism groups, unions, fraternal or athletic groups, or [...] Recorded Patient Health Questionnaire-2 Score 0 11/03/2024 [facility] - Occupational Stress Questionnaire [...] any time in the past 12 m [facility], were you homeless or living in a [...] [address] [place] [address] Marya oLya DO [address] [place] [address] documented as of this encounter Procedures Procedure Name Priority Date/Time Associated Diagnosis Comments XR CHEST 2 VIEWS Routine 11/25/2024 7:52 AM EDT documented in this encounter Results * XR chest 2 views (11/25/2024 7:52 AM EDT) Anatomical Region Laterality Modality Chest Radiographic Rowan ging [facility] IMG XR PROCEDURES Final Result documented in this encounter Visit Diagnoses Not on filedocumented in this encounter Additional Health Concerns Assessment Noted Time PHQ-9 Depression Total Score: 16 024 1:18 PM EST documented as of this encounter Care Teams Compression Molding Machine Operator Relationship Specialty Start Date End Date Markel Braxton MD PCP - General Family Medicine 05/03/23 documented as of this encounter
--- OUTSIDE RECORDS SUMMARY | 2025-01-26 06:08 | XMS_ITS | Clinical Summary ---
Author Organization [facility] Address [id number] [address] [place] [address] Care Team Providers Care Dedicated Truck Driver Name Role Phone Markel Braxton MD Primary Care Provider [phone] Allergies Active Allergy Reactions Criticality Noted Date [...] diastolic heart failure 08/26/2015 Coronary arteriosclerosis in [place] artery 08/25 Essential hypertension 08/26/2015 Morbid obesity [...] weight loss. Medical Devices Implanted Type Area Security Test Engineer Device Identifier Shelf Expiration Date Model / Serial / Lot Rods,Screws Other Implant Neck Cardiac Stent Advance Directives * Full Code (Latest Code Status on File) Date Activated Date Inactivated Comments 12/20/2016 5:14 PM 12/22/2016 7:11 PM Care Teams Dedicated Truck Driver Relationship Specialty Start Date End Date Markel Braxton MD PCP - General 06/22/16
--- OUTSIDE RECORDS SUMMARY | 2025-01-26 06:08 | XMS_ITS | Encounter Summary ---
Author Organization [facility] Address [address] [place] [address] Care Team Providers Care Sorting Livestock Worker Name Role Phone Markel Braxton MD Primary Care Provider [phone] Janene Lew NP Unavailable [phone] Encounter Details Date Type Department Care Team (Late st Contact Info) Description 02/04/2024 Orders Only [facility] [address] [facility] [place] [address] Becca Meneses NP [address] [place] [address] Social History Tobacco Use Types [...] How often do you attend holiness or yazidi serv ices? Never 05/02/2023 Do you belong [...] Recorded Patient Health Questionnaire-2 Score 0 09/20/2023 [facility] - [...] [address] [place] [phone] Marya Loya, [address] [place] [address] documented as of this encounter Procedures Procedure [...] documented as of this encounter Care Teams Sorting Livestock Worker Relationship Specialty Start Date End Date Markel Braxton MD PCP - General Family Medicine 05/03/23 Janene Lew NP [address] [place] [address] PCP - [place] [employer] 09/15/23 documented as of this encounter
--- OUTSIDE RECORDS SUMMARY | 2025-01-26 06:08 | XMS_ITS | Encounter Summary ---
Author Organization [facility] Address [address] [place] [address] Care Team Providers Care Wood Barrel Reconditioner Name Role Phone Janene Lew MD Primary Care Provider [phone] Reason for Visit * Reason Comments Med Refill Encounter Details Date Type Department Care Team ([facility] st Contact Info) Description 10/18/2022 Refill [facility] [address] [place] [phone] Tk Godoy MD [address] [facility] [address] [facility] [place] [place] [phone] Unstable angina pectoris (CMS/HCC) Social History Tobacco [...] syndrome documented in this encounter Care Teams Wood Barrel Reconditioner Relationship Specialty Start Date End Date Janene Lew MD [address] [place] [address] PCP - General 09/26/22 documented as of this encounter
--- OUTSIDE RECORDS SUMMARY | 2025-01-26 06:08 | XMS_ITS | Patient Health Record ---
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) Referral Organization [facility] Referring Provider First Name Leatha Referring Provider Last Name [facility] Referring Provider Speciality Orthopedic Surgery Referred Organization Pain clinic General Notes Nini Priest 2024 09:22:08 AM >, Nini Priest 04/29/2024 08:16:10 AM >FAXED Referral Priority Routine Problems Problem Type SNOMED Code ICD Code Onset Dates Problem Status W/U Status Risk Notes Problem 13493499 Other intervertebral disc displacement, 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) Active confirmed Problem 160151162 Lumbar facet arthropathy (M47.816) Active confirmed Problem 43333553 Degeneration of intervertebral disc of lumbar region with discogenic back pain and lower extremity pain (M51.362) Active confirmed Vital Signs Height 5 ft 4 in in 04/18/2024 Weight 250 lbs 04/18/2024 BMI 42.91 04/18/2024 Encounters Encounter Location Date Provider Diagnosis [facility] Office [address] [place] [address] [place] [address] 04/18/2024 Aysha Arreaga Other intervertebral disc displacement, [...] Date Lumbar spine, 4v flex ext - 34815 2024 Insurance Providers Payer Name Payer Address Payer Phone Subscriber Number Group Number Insured Name Patient Relationship to Insured Coverage Start Date Coverage End Date [place] [address] [place] [address] [id number] SHARLENE ANAYA Self - patient is the insured
--- OUTSIDE RECORDS SUMMARY | 2025-01-26 06:08 | XMS_ITS | Encounter Summary ---
Author Organization [facility] Address [address] [place] [address] Care Team Providers Care Intelligence Director Name Role Phone Markel Braxton MD Primary Care Provider [phone] Jaenne Lew NP Unavailable [phone] Encounter Details Date Type Department Care [...] week 05/02/2023 How often do you attend judaism or gnosticism serv ices? Never 05/02/2023 Do you belong [...] Recorded Patient Health Questionnaire-2 Score 0 02/19/2024 [facility] - [...] [address] [place] [phone] Marya Loya, [address] [place] [address] documented as of this encounter Procedures Procedure Name Priority Date/Time Associated Diagnosis Comments XR LUMBAR SPINE MIN 4V 04/21/2024 6:29 AM EST documented in this encounter Results * XR LUMBAR SPINE MIN 4V (04/21/2024 6:29 AM EST) Anatomical Region Laterality Modality Other 04/21/2024 6:29 AM EST Narrative 04/21/2024 6:32 AM EST [facility] [place] [id number] XRay Report Signed Patient: SHARLENE HUMPHREYS MR#: [id number] : 1970 Acct:[id number] Age/Sex: 53 / F ADM Date: 04/18/24 Loc: EC Attending Dr: Kelly Loya M.D. Ordering Physician: Kelly Loya M.D. Date of Service: 04/18/24 Procedure(s): XR lumbar spine min 4V Accession Number(s): [id number] cc: Janene Lew NP; Kelly Loya M.D. [facility] [place] [id number] Patient Name: SHARLENE HUMPHREYS MRN: [facility]:[id number] date: 1970 Sex: F Assigned Patient Location: Current Patient Location: Accession/Order Number: [id number] Exam Date: 04/18/2024 08:38 Report Date: 04/21/2024 [...] M.D. Signed By: 04/21/2432 DD/ 8 TD/TT: Cabbage Salter: Procedure Note Radiology, Radiologist, MD - 04/21/2024 [place] [address] XRay Report Signed Patient: SHARLENE HUMPHREYS AMR#: [id number] : 1970Acct:[id number] Age/Sex: 53 / FADM Date: 04/18/24 Loc: EC Attending Dr: Kelly Loya M.D. Ordering Physician: Kelly Loya M.D. Date of Service: 04/18/24 Procedure(s): XR lumbar spine min 4V Accession Number(s): [id number] cc: Janene Lew NP; Kelly Loya M.D. [place] [address] Patient Name: SHARLENE HUMPHREYS MRN: [id number] date: 1970 Sex: F Assigned Patient Location: Current Patient Location: Accession/Order Number: [id number] Exam Date: 04/18/2024 08:38 Report Date: 04/21/2024 [...] Raul Hendricks M.D. Signed By:04/21/2432 DD/ TD/TT: Cabbage Salter: us Generic External Data Provider [facility] Final Result documented in this encounter Visit Diagnoses Not on filedocumented in this encounter Additional Health Concerns Assessment Noted Time PHQ-9 Depression Total Score: 16 024 1:18 PM EST documented as of this encounter Care Teams Intelligence Director Relationship Specialty Start Date End Date Markel Braxton MD PCP - General Family Medicine 05/03/23 Janene Lew NP [address] [place] [address] PCP - [place] [employer] 09/15/23 documented as of this encounter
--- OUTSIDE RECORDS SUMMARY | 2025-01-26 06:08 | XMS_ITS | Encounter Summary ---
Author Organization [facility] Address [address] [address] Care Team Providers Care Match Marker Name Role Phone Janene Lew MD Primary Care Provider [phone] Reason for Visit * Reason Comments Med Refill Encounter Details Date Type Department Care Team ([facility] st Contact Info) Description 11/22/2022 Refill [facility] [address] [place] [phone] Tk Godoy MD [address] [facility] [address] [facility] [place] [phone] Hyperlipidemia, unspecified hyperlipidemia type Social History Tobacco [...] type documented in this encounter Care Teams Match Marker Relationship Specialty Start Date End Date Janene Lew MD [address] [place] [address] PCP - General 09/26/22 documented as of this encounter
--- OUTSIDE RECORDS SUMMARY | 2025-01-26 06:09 | XMS_ITS | Encounter Summary ---
Author Organization [facility] Address [address] [place] [address] Care Team Providers Care Administrative Coordinator Name Role Phone Markel Braxton MD Primary Care Provider [phone] Encounter Details Date Type Department Care Team (Late st Contact Info) Description 08/28/2024 Abstract [facility] [address] [facility] [place] [address] Janene Lew, MOTORCYCLE DELIVERY DRIVER [address] [place] [address] Social History Tobacco Use Types Packs/Day Years [...] week 05/02/2023 How often do you attend quaker or baptist serv ices? Never 05/02/2023 Do you belong to any clubs o r organizations such as quaker groups, unions, fraternal or athletic groups, or [...] Recorded Patient Health Questionnaire-2 Score 0 06/16/2024 [facility] - Occupational Stress Questionnaire Answer Date [...] place to sleep or slept in a fci (including now)? Yes 05/02/2023 Comments Unknown Sex [...] [address] [place] [address] Marya Loya DO [address] [place] [address] documented as of this encounter Visit Diagnoses Not on filedocumented in this encounter Additional Health Concerns Assessment Noted Time PHQ-9 Depression Total Score: 16 024 1:18 PM EST documented as of this encounter Care Teams Administrative Coordinator Relationship Specialty Start Date End Date Markel Braxton MD PCP - General Family Medicine 05/03/23 documented as of this encounter
--- OUTSIDE RECORDS SUMMARY | 2025-01-26 06:09 | XMS_ITS | Clinical Summary ---
Author Organization [facility] Address [address] [place] [address] Care Team Providers Care Inspector Filters Name Role Phone Markel Braxton MD Primary Care Provider [phone] Allergies Active Allergy Reactions Criticality Noted Date [...] mg by mouth in the morning. Active sacubitril-valsart an (Entresto) 49-51 MG tablet Take 0.5 tablets by mouth in the morning and 0.5 tablets before bedtime. Pt is to take 1/2 tab in morning and 1/2 tab at night to equal 1 tab per day. Active oxyCODONE-acetamin ophen (Percocet) 7.5-325 MG tablet Take 1 tablet by mouth in the morning and 1 tablet before bedtime. Active ARIPiprazole (Abilify) 30 MG tablet Take 30 mg by mouth Daily 08/23/19 24 Active fluticasone (Flonase) 50 MCG/ACT nasal sprayIndications:S easonal allergies Administer 2 sprays into each nostril Daily 16 g 5 10/24/19 24 Active fenofibrate (Tricor) 145 MG tabletIndications: Mixed hyperlipidemia Take 1 tablet (145 mg) by mouth Daily 30 tablet 5 11/16/19 24 Active senna-docusate sodium (Senokot-S) 8.6-50 MG tablet Take 1 tablet by mouth Daily OTC PO daily Active benztropine (Cogentin) 0.5 MG tablet 02/18/20 24 Active nitroglycerin (Nitrostat) 0.[address] 1 TABLET UNDER TONGUE FOR CHEST PAIN. CALL 911 IF NO IMPROVEMENT AFTER 5 MIN. REPEAT DOSE TWICE IF NEEDED 12/18/19 24 Active Vraylar 6 MG capsule Take 1 capsule by mouth Daily 02/27/20 24 Active FLUoxetine (PROzac) 40 MG capsule Take 40 mg by mouth Daily 08/22/19 25 Active amLODIPine (Norvasc) 10 MG tabletIndications: Primary hypertension Take 1 tablet (10 mg) by mouth Daily 90 tablet 1 09/04/19 25 Active FLUoxetine (PROzac) 20 MG capsule Take 20 mg by mouth Daily TAKE 1 CAPSULE BY MOUTH ONCE DAILY TAKE WITH 40 MG FOR A TOTAL OF 60 MG DAILY 10/10/19 25 Active glucose blood (True Metrix Blood Glucose Test) test stripIndications:T ype 2 diabetes mellitus without complication, without long-term current use of insulin ([facility]) Checking bg levels once a day 100 strip 3 11/04/19 Active Lancets 33G miscIndications:Ty pe 2 diabetes mellitus without complication, without long-term current use of insulin ([facility]) Checking bg levels once a day 100 each 3 11/04/19 25 Active tiZANidine (Zanaflex) 4 MG tabletIndications: Muscle spasm Take 1 tablet (4 mg) by mouth every 8 (eight) hours if needed for muscle spasms 90 tablet 1 11/13/19 25 Active rOPINIRole (Requip) 0.25 MG tabletIndications: Restless leg syndrome Take 1 tablet (0.25 mg) by mouth at bedtime 90 tablet 11/24/19 25 025 Active Tirzepatide (Mounjaro) 7.5 MG/0.5ML solution auto-injectorIndic ations:Type 2 diabetes mellitus with other circulatory complications (HCC) INJECT 7.5MG SUBCUTANEOUSLY ONCE A WEEK 2 mL 2 11/29/19 25 Active Blood Glucose Monitoring Suppl (True Metrix Meter) w/Device kitIndications:Typ e 2 diabetes mellitus without complication, without long-term current use of insulin ([facility]) USE 1 TO CHECK GLUCOSE ONCE DAILY 1 kit 12/02/19 25 Active gabapentin (Neurontin) 600 MG tabletIndications: Restless leg syndrome Take 1 tablet (600 mg) by mouth 2 (two) times a day as needed (RLS) 60 tablet 2 12/09/19 25 Active Active Problems Problem Noted Date Diagnosed [...] EST): Would like a referral to podiatry [facility] if possible Spinal stenosis of thoracolumbar region 04/30/19 Spinal stenosis of lumbar region at multiple [facility] 04/30/2023 Assessment & Plan (03/06/2024 9:57 AM EST): Continues with pain mgmt for oral medications and treatment plan [facility] pain mgmt, ?? Possible spinal cord [...] on 06/16/24 Pt is managed by dr loya Assessment & Plan (03/06/2024 6:45 AM EST): [...] they have any problems or questions. Sharlene Rudolph control is stable overall. , Discussed dietary [...] Provider, Generic External Data 12/06/2024 [facility]ill [facility] [address] [facility] [place] [address] Janene Lew NP Restless leg syndrome 11/30/2024 [facility] [address] [place] [address] Marya Loya, DO Type 2 diabetes mellitus without complication, without long-term current use of insulin ([facility]) 11/28/2024 [facility] [address] [place] [address] Marya Loya, DO Type 2 diabetes mellitus with other circulatory complications ([facility]) 11/25/2024 Abstract [facility] [address] [place] [address] Janene Lew NP 11/25/2024 Orders Only [facility] [address] [facility] [place] [address] 11/21/2024 Refill [facility] [address] [place] [address] Janene Lew NP Restless leg syndrome 11/18/2024 Travel 11/17/2024 Clinisync Result Encounter [facility] External Department Unsolicited Provider, Generic External Data 11/17/2024 Abstract [facility] [address] [place] [address] Janene Lew NP 11/11/2024 Refill [facility] [address] [place] [address] Janene Lew NP Muscle spasm 11/03/2024 9:45 AM EDT [facility] [address] [place] [address] Marya Loya, Type 2 diabetes mellitus with other circulatory [...] (BMI) of 36.0 to 36.9 in adult ([facility]) 11/03/2024 Bamboo flowsheet [facility] [address] [place] [address] Marya Loya DO 11/03/2024 Travel 10/28/2024 Travel from Last 3 Months Immunizations Immunization Administration [...] How often do you attend chur or gnosticist services? Never 11/18/2024 Do you belong to [...] Recorded Patient Health Questionnaire-2 Score 0 11/03/2024 [facility] [...] in a jail (including now)? Yes 05/02/2023 Housing Stability Vital Sign Answer Mitchell e Recorded In the last 12 months, was t here a time when you were not able to pay the mortgage or rent on time? No 11/18/2024 In the past 12 months, how m any times have you moved where you were living? 0 11/18/2024 At any time in the past 12 m [facility], were you homeless or living in a jail (including now)? No 11/18/2024 Comments Unknown Sex [...] [address] [place] [address] Marya Loya, [address] [place] [address] Health Maintenance Due Date Last Done Comments CT Colonography 1970 FIT-DNA 1970 FIT 1970 FOBT 1970 Sigmoidoscopy 1970 HPV/Cotest 2000 Pap Smear 05/18/2019 05/18/2016 Mammogram 09/27/2024 09/28/2023, 03/29/2022 Influenza Vaccine (#1) 2024 4, 02/09/2023, 12/19/2021, Additional history exists Colonoscopy 10/31/2033 11/01/2023, 11/01/2023, 07/15 Colorectal Cancer Screening 10/31/2033 Cervical Cancer Screening [...] WITH AUTO DIFF (12/06/2024 10:44 AM EDT) [facility] TB WBC 5.8 4.0 - 11.0 10 3/uL [...] External Data Provider [facility] F inal Result Performing Organization Address City/[facility]/ZIP Co de Phone Number CLINSAMIRAIL TB * (ABNORMAL) ALL BASIC METABOLIC PANEL (12/06/2024 10:44 AM EDT) SODIUM 142 136 - 145 mmol/L [facility] POTASSIUM 4.0 3.5 - 5.1 mmol/L [facility] CHLORIDE 108(H) 98 - 107 mmol/L [facility] CARBON DIOXIDE 23.9 21.0 - 32.0 mmol/L [facility] ANION GAP 14.1 [facility] GLUCOSE 108(H) 74 - 106 mg/dL [facility] BLOOD UREA NITROGEN 27.0(H) 7.0 - 18.0 mg/dL [facility] CREATININE 1.07(H) 0.55 - 1.02 mg/dL [facility] TBH EGFR-AF EGYPTIAN >60 >=60 mL/min/1.7 3m 2 TBH TBH EGFR-NON AF EGYPTIAN 54(L) >=60 mL/min/1.7 3m 2 [facility] BUN CREATININE RATIO 25.2 TB[facility] CALCIUM 9.3 8.5 - 10.1 mg/dL [facility] 12/06/2024 10:4 4 AM EDT 12/06/2024 10:45 AM EDT Narrative CLINIS[facility]NC - 12/06/2024 11:12 AM EDT Generic External Data Provider CLINSAMIRANC F paramjit Result Performing Organization Address City/[facility] Co de Phone Number CLINISYIL TB * XR chest 2 views (11/25/2024 7:52 AM EDT) Anatomical Region Laterality Modality Chest Radiographic Rowan ging [facility] IMG XR PROCEDURES Final Result * NM MALIK PERF SPECT REST STR (11/17/2024 10:01 AM EDT) Anatomical Region Laterality Modality Other 11/17/2024 10:0 1 AM EDT Narrative 11/17/2024 10:02 AM EDT The [address] [address] Nuclear Medicine Report Signed Patient: SHARLENE HUMPHREYS MR#: [id number] : 1970 Acct:[id number] Age/Sex: 53 / F ADM Date: 11/13/24 Loc: NM Attending Dr: Tk Espinoza M.D. Ordering Physician: Tk Espinoza M.D. Date of Service: 11/13/24 Procedure(s): NM malik perf SPECT rest str Accession Number(s): [id number] cc: Janene Lew FLIGHT DISPATCHER; Tk Espinoza M.D. Patient Name: SHARLENE HUMPHREYS MR#: [id number] : 1970 Exam Date: 11/13/2024 Ordering Doctor: [...] the study was pending per attending physician [facility] . For more details please [...] Signed By: 11/17/24 1002 DD/ 1001 TD/TT: Senior Medical Director: Procedure Note Radiology, Radiologist, - 11/17/2024 [place] [address] Nuclear Medicine Report Signed Patient: SHARLENE HUMPHREYS AMR#: [id number] : 1970Acct:[id number] Age/Sex: 53 / FADM Date: 11/13/24 Loc: NM Attending Dr: Tk Espinoza M.D. Ordering Physician: Tk Espinoza M.D. Date of Service: 11/13/24 Procedure(s): NM malik perf SPECT rest str Accession Number(s): [id number] cc: Janene Lew FLIGHT DISPATCHER; Tk Espinoza M.D. Patient Name: SHARLENE HUMPHREYS MR#: [id number] : 1970 Exam Date: 11/13/2024 Ordering Doctor: [...] the study was pending per attending physician [facility] . For more details pleasesee separate [...] M.D. Signed By:11/17/24 1002 DD/ 1001 TD/TT: Senior Medical Director: us Generic External Data Provider [facility] IMAGING Final Result * POCT glycosylated hemoglobin (Hb A1C) docked device (11/03/2024 10:14 AM EDT) Hemoglobin A1C 5.2 Blood Venous blood specimen / Unknown 11/03/2024 10:14 AM EDT us Marya Loya DO POINT OF CARE TEST ENTER/E DIT ORDERABLES Final Result * Colonoscopy (11/01/2023 11:19 AM EDT) Anatomical Region Laterality Modality Endoscopy us Jhonathan Ashley MD ENDOSCOPY PROCEDURE ORDERABL ES Final Result * MM TOMOSYNTHESIS SCREENING BI (09/28/2023 10:49 AM EDT) Anatomical Region Laterality Modality Other 09/28/2023 10:4 9 AM EDT Narrative 09/28/2023 10:50 AM EDT [address] [address] Mammography Report Signed Patient: SHARLENE HUMPHREYS MR#: [id number] : 1970 Acct:[id number] Age/Sex: 52 / F ADM Date: 09/28/23 Loc: MAMMO Attending Dr: Janene Lew NP Ordering Physician: Janene Lew NP Results: Date of Service: 09/28/23 Follow Up: Procedure(s): MM tomosynthesis screening BI Accession Number(s): [id number] cc: Janene Lew FLIGHT DISPATCHER Patient Name: SHARLENE HUMPHREYS MR#: [id number] : 1970 Exam Date: 09/28/2023 Ordering Doctor: [...] at age 73. LOCATION: The [facility] BREAST COMPOSITION: There are scattered areas [...] Signed By: 09/28/23 1050 DD/ 1049 TD/TT: Senior Medical Director: Procedure Note Radiology, Radiologist, MD - 09/28/2023 [place] [address] Mammography Report Signed Patient: SHARLENE HUMPHREYS AMR#: [id number] : 1970Acct:[id number] Age/Sex: 52 / FADM Date: 09/28/23 Loc: MAMMO Attending Dr: Janene Lew NP Ordering Physician: Janene Lew NPResults: Date of Service: 09/28/23Follow Up: Procedure(s): MM tomosynthesis screening BI Accession Number(s): [id number] cc: Janene Lew NP Patient Name: SHARLENE HUMPHREYS MR#: [id number] : 1970 Exam Date: 09/28/2023 Ordering Doctor: [...] at age 73. LOCATION: The [facility] BREAST COMPOSITION: There are scattered areas [...] M.D. Signed By:09/28/23 1050 DD/ 1049 TD/TT: Senior Medical Director: Janene Louann THAPA [facility] IMAGING Final Result from Last 3 Months or Most Recently Relevant to Health Maintenance Insurance [facility] Care Teams Inspector Filters Relationship Specialty Start Date End Date Markel Braxton MD PCP - General Family Medicine 05/03/23
--- OUTSIDE RECORDS SUMMARY | 2025-01-26 06:09 | XMS_ITS | Encounter Summary ---
Author Organization [facility] Address [address] [place] [address] Care Team Providers Care Research Instrumentation Technician Name Role Phone Markel Braxton MD Primary Care Provider [phone] Encounter Details Date Type Department Care Team (Late st Contact Info) Description 10/07/2024 Abstract [facility] [address] [facility] [place] [address] Janene Lew, SWATCH CLERK [address] [place] [address] Social History Tobacco Use Types Packs/Day Years [...] week 05/02/2023 How often do you attend jew or jewish serv ices? Never 05/02/2023 Do you belong to any clubs o r organizations such as jew groups, unions, fraternal or athletic groups, or [...] Recorded Patient Health Questionnaire-2 Score 0 06/16/2024 [facility] - [facility]ational Stress Questionnaire Answer Date [...] [address] [place] [address] Marya Loya DO [address] [place] [address] documented as of this encounter Visit Diagnoses Not on filedocumented in this encounter Additional Health Concerns Assessment Noted Time PHQ-9 Depression Total Score: 16 024 1:18 PM EST documented as of this encounter Care Teams Research Instrumentation Technician Relationship Specialty Start Date End Date Markle Braxton MD PCP - General Family Medicine 05/03/23 documented as of this encounter
--- OUTSIDE RECORDS SUMMARY | 2025-01-26 06:09 | XMS_ITS | Encounter Summary ---
Author Organization [facility] Address [address] [place] [address] Care Team Providers Care Hydroelectric Powerplant Supervisor Name Role Phone Markel Braxton MD Primary Care Provider [phone] Encounter Details Date Type Department Care Team (Late st Contact Info) Description 08/28/2024 Orders Only [facility] [address] [place] [address] Becca Meneses, PULP PRESS TENDER [address] [id number] Social History Tobacco Use Types Packs/Day Years [...] week 05/02/2023 How often do you attend evangelical or sabianist serv ices? Never 05/02/2023 Do you belong to any clubs o r organizations such as evangelical groups, unions, fraternal or athletic groups, or [...] Recorded Patient Health Questionnaire-2 Score 0 06/16/2024 [facility] Health - Occupational [...] in a snf (including now)? Yes 05/02/2023 Comments Unknown Sex [...] [address] [place] [address] Marya Loya, [address] [place] [address] documented as of this encounter Procedures Procedure [...] documented as of this encounter Care Teams Hydroelectric Powerplant Supervisor Relationship Specialty Start Date End Date Markel Braxton MD PCP - General Family Medicine 05/03/23 documented as of this encounter
--- OUTSIDE RECORDS SUMMARY | 2025-01-26 06:09 | XMS_ITS | Encounter Summary ---
Author Organization [facility] Address [address] [place] [address] Care Team Providers Care Vibrating Screed Operator Name Role Phone Markel Braxton MD Primary Care Provider [phone] Encounter Details Date Type Department Care Team (Late st Contact Info) Description 10/07/2024 Abstract [facility] [address] [facility] [place] [address] Janene Lew, BULLARD MACHINE OPERATOR [address] [place] [address] Social History Tobacco Use Types Packs/Day Years [...] How often do you attend synagogue or restorationism serv ices? Never 05/02/2023 Do you belong [...] Recorded Patient Health Questionnaire-2 Score 0 06/16/2024 [facility] - Occupational Stress Questionnaire Answer [...] [address] [place] [address] Marya Loya DO [address] [place] [address] documented as of this encounter Visit Diagnoses Not on filedocumented in this encounter Additional Health Concerns Assessment Noted Time PHQ-9 Depression Total Score: 16 024 1:18 PM EST documented as of this encounter Care Teams Vibrating Screed Operator Relationship Specialty Start Date End Date Markel Braxton MD PCP - General Family Medicine 05/03/23 documented as of this encounter
--- OUTSIDE RECORDS SUMMARY | 2025-01-26 06:09 | XMS_ITS | Encounter Summary ---
Author Organization [facility] Address [address] [place] [address] Care Team Providers Care Cupola Man Name Role Phone Markel Braxton MD Primary Care Provider [phone] Markel Braxton MD Primary Care Provider [phone] Janene Lew CHILD SUPPORT SPECIALIST Unavailable [phone] Encounter Details Date Type Department Care Team (Late st Contact Info) Description 05/01/2023 Abstract [facility] [address] [place] [address] Janene Lew NP [address] [facility] [place] [address] Social History Tobacco Use Types Packs/Day Years [...] week 05/02/2023 How often do you attend pentecostalism or sikhism serv ices? Never 05/02/2023 Do [...] Recorded Patient Health Questionnaire-2 Score 4 05/03/2023 [facility] - [...] half the days 05/03/2023 1:18 PM Lili Bsihop MA Feeling down, depressed, or hopeless More than half the days 05/03/2023 1:18 PM Lili Bishop MA Patient Health Questionnaire-2 Score 4 05/03/2023 1:18 PM Aretha Bihsop MA * Question Answer Date of Assessment [...] 05/03/2023 1:18 PM Lili Bishop MA * How difficult have these problems made it for you to do your work, take care of things at home, or get along with other people? Answer Date of Assessment Author Not difficult at all 05/03/2023 1:18 PM Lili Shirley MA documented as of this encounter Plan of Treatment Upcoming Encounters Date Type Department Care Team (Late st Contact Info) Description 05/05/2025 10:15 AM EST Office Visit [facility] [address] [place] [address] Marya Loya, [address] [place] [address] documented as of this encounter Visit Diagnoses Not on filedocumented in this encounter Care Teams Cupola Man Relationship Specialty Start Date End Date Markel Braxton MD PCP - General Family Medicine 10/25/22 05/02/23 Markel Braxton MD PCP - General Family Medicine 05/03/23 Janene Lew NP [address] [place] [address] PCP - [facility] 09/15/23 documented as of this encounter
--- OUTSIDE RECORDS SUMMARY | 2025-01-26 06:09 | XMS_ITS | Encounter Summary ---
Author Organization [facility] Address [address] [place] [address] Care Team Providers Care Welding Manager Name Role Phone Markel Braxton MD Primary Care Provider Janene Lew NP Unavailable [phone] Encounter Details Date Type Department Care [...] How often do you attend rastafarian or worship serv ices? Never 05/02/2023 Do [...] Recorded Patient Health Questionnaire-2 Score 0 09/20/2023 [facility] - Occupational Stress [...] in a chcf (including now)? Yes 05/02/2023 Comments Unknown Sex [...] [address] [place] [address] Marya Loya DO [address] [place] [address] documented as of this encounter Procedures Procedure Name Priority Date/Time Associated Diagnosis Comments MR LUMBAR SPINE WO CON 02/01/2024 7:33 AM EDT documented in this encounter Results * MR LUMBAR SPINE WO CON (02/01/2024 7:33 AM EDT) Anatomical Region Laterality Modality Other 02/01/2024 7:33 AM EDT Narrative 02/01/2024 7:36 AM EDT The [address] [address] Magnetic Resonance Report Signed Patient: SHARLENE HUMPHREYS MR#: [id number] : 1970 Acct:[id number] Age/Sex: 53 / F ADM Date: 01/31/24 Loc: MRI Attending Dr: Elizabeth Diamond NP Ordering Physician: Elizabeth Diamond NP Date of Service: 01/31/24 Procedure(s): MR lumbar spine wo con Accession Number(s): [id number] cc: Janene Lew BLAST FURNACE KEEPER; Elizabeth Diamond NP [place] [id number] Patient Name: SHARLENE HUMPHREYS MRN: TBH:[id number] date: 1970 Sex: F Assigned Patient Location: MRI Current Patient Location: Accession/Order Number: [id number] Exam Date: 01/31/2024 10:00 Report Date: 02/01/2024 [...] Signed By: 02/01/24 0736 DD/ 0733 TD/TT: Fisher Trammel Net: Procedure Note Radiology, Radiologist, MD - 02/01/2024 [place] [address] Magnetic Resonance Report Signed Patient: SHARLENE HUMPHREYS AMR#: [id number] : 1970Acct:[id number] Age/Sex: 53 / FADM Date: 01/31/24 Loc: MRI Attending Dr: Elizabeth Diamond NP Ordering Physician: Elizabeth Diamond NP Date of Service: 01/31/24 Procedure(s): MR lumbar spine wo con Accession Number(s): [id number] cc: Janene Lew NP; Elizabeth Diamond NP [place] [address] Patient Name: SHARLENE HUMPHREYS MRN: [facility]:[id number] date: 1970 Sex: F Assigned Patient Location: MRI Current Patient Location: Accession/Order Number: [id number] Exam Date: 01/31/2024 10:00 Report Date: 02/01/2024 [...] right foraminal stenosis Electronically authenticated by: ALEX ALELN Date: 02/01/2024 07:33 Dictated By: Alex Allen M.D. Signed By:02/01/24735 DD/ 2 TD/TT: Fisher Trammel Net: us Generic External Data Provider [facility] IMAGING Final Result documented in this encounter Visit Diagnoses Not on filedocumented in this encounter Additional Health Concerns Assessment Noted Time PHQ-9 Depression Total Score: 16 024 1:18 PM EST documented as of this encounter Care Teams Welding Manager Relationship Specialty Start Date End Date Markel Braxton MD PCP - General Family Medicine 05/03/23 Janene Lew NP [address] [place] [address] PCP - [employer] 09/15/23 documented as of this encounter
--- OUTSIDE RECORDS SUMMARY | 2025-01-26 06:09 | XMS_ITS | Encounter Summary ---
Author Organization [facility] Address [address] [place] [address] Care Team Providers Care Director Web Name Role Phone Markel Braxton MD Primary Care Provider [phone] Janene Lew INTERLOCKING INSTALLER Unavailable [phone] Encounter Details Date Type Department Care Team (Late st Contact Info) Description 09/28/2023 Clinisync Result Encounter [facility] Unsolicited Janene Lew, ELIER [address] [place] [address] Social History Tobacco Use Types Packs/Day Years [...] How often do you attend latter-day or evangelical serv ices? Never 05/02/2023 Do you belong [...] Recorded Patient Health Questionnaire-2 Score 0 09/20/2023 [facility] - [...] [address] [place] [address] Marya Loya, [address] [place] [address] documented as of this encounter Procedures Procedure Name Priority Date/Time Associated Diagnosis Comments MM TOMOSYNTHESIS SCREENING BI 09/28/2023 10:49 AM EDT documented in this encounter Results * MM TOMOSYNTHESIS SCREENING BI (09/28/2023 10:49 AM EDT) Anatomical Region Laterality Modality Other 09/28/2023 10:4 9 AM EDT Narrative 09/28/2023 10:50 AM EDT The [address] [address] Mammography Report Signed Patient: SHERLY HUMPHREYS MR#: [id number] : 1970 Acct:[id number] Age/Sex: 52 / F ADM Date: 09/28/23 Loc: MAMMO Attending Dr: Janene Lew NP Ordering Physician: Janene Lew NP Results: Date of Service: 09/28/23 Follow Up: Procedure(s): MM tomosynthesis screening BI Accession Number(s): [id number] cc: Janene Lew NP Patient Name: SHERLY HUMPHREYS MR#: [id number] : 1970 Exam Date: 09/28/2023 Ordering Doctor: [...] at age 73. LOCATION: The [facility] BREAST COMPOSITION: There are scattered areas of [...] Signed By: 09/28/23 1050 DD/ 1049 TD/TT: Clarification Operator: Procedure Note Radiology, Radiologist, - 09/28/2023 [place] [address] Mammography Report Signed Patient: SHERLY HUMPHREYS AMR#: [id number] : 1970Acct:[id number] Age/Sex: 52 / FADM Date: 09/28/23 Loc: MAMMO Attending Dr: Janene Lew INTERLOCKING INSTALLER Ordering Physician: Janene Lew NPResults: Date of Service: 09/28/23Follow Up: Procedure(s): MM tomosynthesis screening BI Accession Number(s): [id number] cc: Janene Lew NP Patient Name: SHERLY HUMPHREYS MR#: [id number] : 1970 Exam Date: 09/28/2023 Ordering Doctor: AGUSTINA Lew TEST [facility] REPORT PROCEDURE: MM TOMOSYNTHESIS SCREENING BI [...] at age 73. LOCATION: The [facility] BREAST COMPOSITION: There are scattered areas of [...] M.D. Signed By:09/28/23 1050 DD/ 1049 TD/TT: Clarification Operator: us Janene Lew NP [facility] Final Result documented in this encounter Visit Diagnoses Not on filedocumented in this encounter Additional Health Concerns Assessment Noted Time PHQ-9 Depression Total Score: 16 05/03/2 024 1:18 PM EST documented as of this encounter Care Teams Director Web Relationship Specialty Start Date End Date Markel Braxton MD PCP - General Family Medicine 1/18/24 Janene Lew NP [address] [place] [address] PCP - [facility] [employer] 09/15/23 documented as of this encounter
--- OUTSIDE RECORDS SUMMARY | 2025-01-26 06:09 | XMS_ITS | CCD ---
Author Organization [facility] Care Team Providers Care 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 Name Role Phone Peng Merino Admitting Unavailable Peng Merino Attending Unavailable GEOVANNI BRUNNER Primary Care Unavailable HAMMAD LING Referring Unavailabl e [place] Procedure Practitioner Unavailab TK [place] Surgeon Unavailable Christian Hamilton Unavailable Janene Lew Primary Care Provider MD Christian Hamilton Attending Provider ELIER Bolivar Emma Attending Provider Emma Bolivar Unavailable Halle Mac Unavailable Janene Lew Primary Care Provider [facility] Merissa Antunez Emergency Provider Ivan Sams Unavailable AICHHOLZ, RANGELAND MANAGEMENT SPECIALIST JANENE Consulting Unavailable AICHHOLZ, RANGELAND MANAGEMENT SPECIALIST JANENE Attending Unavailable AICHHOLZ, RANGELAND MANAGEMENT SPECIALIST JANENE Admitting Unavailable AICHHOLZ, RANGELAND MANAGEMENT SPECIALIST JANENE Primary Care Unavailable AICHHOLZ, RANGELAND MANAGEMENT SPECIALIST JANENE Consulting Unavailable AICHHOLZ, RANGELAND MANAGEMENT SPECIALIST JANENE Attending Unavailable AICHHOLZ, RANGELAND MANAGEMENT SPECIALIST JANENE Admitting Unavailable AICHHOLZ, RANGELAND MANAGEMENT SPECIALIST JANENE Primary Care Unavailable AICHHOLZ, RANGELAND MANAGEMENT SPECIALIST JANENE Primary Care Unavailable AICHHOLZ, RANGELAND MANAGEMENT SPECIALIST JANENE Consulting Unavailable AICHHOLZ, RANGELAND MANAGEMENT SPECIALIST JANENE Admitting Unavailable AICHHOLZ, RANGELAND MANAGEMENT SPECIALIST JANENE Attending Unavailable DR MYRIAM SAMANIEGO Attending Unavailable DR MYRIAM SAMANIEGO Admitting Unavailable DR MYRIAM SAMANIEGO Consulting Unavailable AICHHOLZ, RANGELAND MANAGEMENT SPECIALIST JANENE Primary Care Unavailable AICHHOLZ, RANGELAND MANAGEMENT SPECIALIST JANENE Primary Care Unavailable DWAYNE FRIEDMAN Admitting Unavailable DWAYNE FRIEDMAN Attending Unavailable CLEMENT PLUMMER Consulting Unavailable Wan Jenkins Consulting Unavailable AICHHOLZ, RANGELAND MANAGEMENT SPECIALIST JANENE Primary Care Unavailable EVON TRAMMELL Attending Unavailable JP, EVON Admitting Unavailable EVON TRAMMELL Consulting Unavailable LUZ COELLO Consulting Unavailable NATHAN COLE Consulting Unavailable LIN GARRETT Consulting Unavailable AICHHOLZ, RANGELAND MANAGEMENT SPECIALIST JANENE Primary Care Unavailable AICHHOLZ, RANGELAND MANAGEMENT SPECIALIST JANENE Admitting Unavailable AICHHOLZ, RANGELAND MANAGEMENT SPECIALIST JANENE Attending Unavailable DR ALEX ALLEN V Consulting Unavailable AICHHOLZ, RANGELAND MANAGEMENT SPECIALIST JANENE Consulting Unavailable AICHHOLZ, RANGELAND MANAGEMENT SPECIALIST JANENE Consulting Unavailable AICHHOLZ, RANGELAND MANAGEMENT SPECIALIST JANENE Attending Unavailable AICHHOLZ, RANGELAND MANAGEMENT SPECIALIST JANENE Admitting Unavailable AICHHOLZ, RANGELAND MANAGEMENT SPECIALIST JANENE Primary Care Unavailable DR KATHY LOBATO Consulting Unavailable AICHHOLZ, RANGELAND MANAGEMENT SPECIALIST JANENE Attending Unavailable AICHHOLZ, RANGELAND MANAGEMENT SPECIALIST JANENE Admitting Unavailable AICHHOLZ, RANGELAND MANAGEMENT SPECIALIST JANENE Primary Care Unavailable DR ALEX ALLEN V Consulting Unavailable AICHHOLZ, RANGELAND MANAGEMENT SPECIALIST JANENE Consulting Unavailable AICHHOLZ, RANGELAND MANAGEMENT SPECIALIST JANENE Consulting Unavailable AICHHOLZ, RANGELAND MANAGEMENT SPECIALIST JANENE Primary Care Unavailable AICHHOLZ, RANGELAND MANAGEMENT SPECIALIST JANENE Attending Unavailable AICHHOLZ, RANGELAND MANAGEMENT SPECIALIST JANENE Admitting Unavailable AICHHOLZ, RANGELAND MANAGEMENT SPECIALIST JANENE Primary Care Unavailable AICHHOLZ, RANGELAND MANAGEMENT SPECIALIST JANENE Admitting Unavailable AICHHOLZ, RANGELAND MANAGEMENT SPECIALIST JANENE Consulting Unavailable AICHHOLZ, RANGELAND MANAGEMENT SPECIALIST JANENE Attending Unavailable DR KATHY LOBATO Consulting Unavailable AICHHOLZ, RANGELAND MANAGEMENT SPECIALIST JANENE Primary Care Unavailable BAKHOUS, AZIZ Admitting Unavailable BAKHOUS, AZIZ Attending Unavailable AICHHOLZ, RANGELAND MANAGEMENT SPECIALIST JANENE Attending Unavailable AICHHOLZ, RANGELAND MANAGEMENT SPECIALIST JANENE Admitting Unavailable AICHHOLZ, RANGELAND MANAGEMENT SPECIALIST JANENE Primary Care Unavailable AICHHOLZ, RANGELAND MANAGEMENT SPECIALIST JANENE Primary Care Unavailable AICHHOLZ, RANGELAND MANAGEMENT SPECIALIST JANENE Consulting Unavailable AICHHOLZ, RANGELAND MANAGEMENT SPECIALIST JANENE Attending Unavailable AICHHOLZ, RANGELAND MANAGEMENT SPECIALIST JANENE Admitting Unavailable DR KATHY LOBATO Consulting Unavailable AICHHOLZ, RANGELAND MANAGEMENT SPECIALIST JANENE Primary Care Unavailable AICHHOLZ, RANGELAND MANAGEMENT SPECIALIST JANENE Admitting Unavailable AICHHOLZ, RANGELAND MANAGEMENT SPECIALIST JANENE Attending Unavailable AICHHOLZ, RANGELAND MANAGEMENT SPECIALIST JANENE Consulting Unavailable AICHHOLZ, RANGELAND MANAGEMENT SPECIALIST JANENE Primary Care Unavailable DOLORES STRATTON Attending Unavailable AMBER Carrillo, DOLORES Admitting Unavailable MR DELIA HENDRIX Consulting Unavailable DOLORES STRATTON Consulting Unavailable ALEX AVINA Consulting Unavailable AICHHOLRufus, AGUSTINA JANENE Primary Care Unavailable EVON TRAMMELL Attending Unavailable EVON TRAMMELL Admitting Unavailable EVON TRAMMELL Consulting Unavailable Reddhjeremiah Janene J Primary Care Provider MD Valdemar Alonso Attending Provider MD Fauzia Huffman Attending Provider UnavailMD Halle Felton Referring Provider [phone] MARKEL HAQ Primary Care Unavailable Janene Lew Attending Unavailable Louann Janene J Admitting Unavailable Louann Janene J Primary Care Provider [phone] MD Fauzia Huffman Attending Provider UnavailMD Halle Felton Referring Provider MD Halle Mac Attending Provider Janene Lew Primary Care Provider [phone] MD Valdemar Alonso Attending Provider [phone] MD Alma Deng Admit Provider [phone] MD [facility] Other Provider MD Fernando Rosenberg Attending Provider [phone] MD Valdemar Alonso Attending Provider MD Valdemar Alonso Attending Provider MD Ban Clemente Attending Provider [phone] Man SHARMA, Andrius Vytautchuck Attending Unavailable Girenee SHARMA, Andrius Vytautas Attending Unavailable Man SHARMA, Andrius Vytautas Attending Unavailable Man SHARMA, Andrius Vytautas Attending Unavailable Man SHARMA, Andrius Vytautas Attending Unavailable Markel Haq MD Primary Care Provider [phone] Louann EMPLOYMENT INTERVIEWER, Janene Unavailable MARYA CASTORENA Attending Unavailable AICHHOLZ, JANENE Attending Unavailable BAN ARTIS Attending Unavailable MARYA CASTORENA Attending Unavailable AICHANGIEZ JANENE Referring Unavailable AICHJEREMIAH JANENE Attending Unavailable PETMARYA HERR Attending Unavailable PETMARYA HERR Attending Unavailable LOUANN, JANENE Attending Unavailable Janene Lew Primary Care Provider Valdemar Alonso MD Attending Provider [phone] Halle Mac MD Attending Provider Halle Mac Admitting Unavailable Bubba Aziz Attending Unavailable Radha Lewa J Primary Care Unavailable Halle Mac Attending Unavailable Reddhjeremiah Janene J Primary Care Unavailable Bubba, Aziz Admitting Unavailable Aichholrufus, Janene J Primary Care Unavailable Shantal Alonsoelrahman Admitting Unavailab le Valdemar Alonso Attending Unavailab le ELTAHAWY, EHAB Attending Unavailable ELTAHAWY, EHAB Attending Unavailable ELTAHAWY, EHAB Admitting Unavailable ELTAHAWY, EHAB Attending Unavailable ELTAHAWY, EHAB Referring Unavailable ELTAHAWY, EHAB Referring Unavailable Kanani DMD, Joshua Unavailable Unavailable Janene Lew Attending Provider [phone] Kanani DMD, Joshua Attending Unavailable Kanani DMD, Joshua Unavailable Unavailable Allergies Allergy Classification Reported Allergen(s) Allergy Type Date of Onset Reaction(s) Facility (2 sources) Cephalexin Drug Allergy 10-06-19 10 [facility] Repository (2 sources) Levamisole Drug Allergy 05-22-19 13 [facility] Repository (2 sources) Omeprazole; Translations: [OMEPRAZOLE] Drug Allergy 04-20-19 16 [facility] Repository (14 sources) Prochlorperazine Drug Allergy 10-06-19 10 Unknown [facility] Repository (14 sources) Sulfamethoxazole / Trimethoprim Drug Allergy 10-06-19 10 Unknown [facility] Repository (12 sources) Penicillins (Antibiotic) Propensity to adverse reactions Unknown [employer] Other (20 sources) Promethazine; Translations: [PROMETHAZINE] Drug Allergy 06-28-19 14 Unknown, Seizure [facility] (20 sources) empagliflozin; Translations: [empagliflozin] Drug Allergy 08-11-19 22 Unknown Reaction [facility] (20 sources) Penicillins; Translations: [Penicillins] Allergy to substance 06-28-19 14 [facility] (20 sources) Prochlorperazine; Translations: [prochlorperazine] Drug Allergy 06-28-19 14 Unknown [facility] (20 sources) Sulfamethoxazole; Translations: [sulfamethoxazole] Drug Allergy 06-28-19 14 [facility] (12 sources) Trimethoprim; Translations: [trimethoprim] Drug Allergy 08-11-19 [facility] (1 source) Sulfonamides (Antibiotic) Drug allergy (disorder) 06-10-19 15 [facility] Repository (20 sources) zolpidem; Translations: [zolpidem] Drug Allergy 10-01-19 24 Unknown [facility] Comment on above: per pt (20 sources) Cephalexin; Translations: [CEPHALEXIN] Drug Allergy 06-28-19 14 [facility] (20 sources) Esomeprazole Drug Allergy 04-27-19 24 GI intolerance [facility] (20 sources) Omeprazole Drug Allergy 04-27-19 24 GI intolerance [facility] Healthcare (20 sources) pantoprazole; Translations: [PANTOPRAZOLE] Drug Allergy 06-23-19 17 GI intolerance [facility] Healthcare (20 sources) Sulfamethoxazole / Trimethoprim; Translations: [SULFAMETHOXAZOLE-T RIMETHOPRIM] Drug Allergy 04-03-20 14 [facility] (1 source) Promethazine Drug Allergy 11-27-19 25 [facility] Repository (1 source) Doxycycline; Translations: [DOXYCYCLINE CALCIUM] Drug Allergy 06-28-19 14 [facility] Repository (1 source) Esomeprazole; Translations: [ESOMEPRAZOLE MAGNESIUM] Drug Allergy 06-23-19 17 [facility] Repository (1 source) [place]; Translations: [PHENERGAN PLAIN] Propensity to adverse reactions to drug (disorder) 09-17-19 16 [facility] Repository Medications Current Medications Medication Drug [...] morning and 1 tablet before bedtime. Active [id number] 200 actuat albuterol 0.09 mg/actuat metered dose [...] complication, without long-term current use of insulin ([facility]) 1 each Daily 1 kit 07/02/2023 11/03/2024 Discontinued (Reorder) Start: 07-02-2023 Blood Glucose Monitoring Suppl (True Metrix Air Glucose Meter) w/Device kit Indications: Type 2 diabetes mellitus without complication, without long-term current use of insulin ([facility]) 1 each Daily 1 kit 07/02/2023 Active [...] complication, without long-term current use of insulin ([facility]) USE 1 TO CHECK GLUCOSE ONCE [...] products docusate sodium 50 mg / sennosides, long term 8.6 mg oral tablet (20 sources) take [...] Start: 11-10-2021 take 2 tablets by mo [facility] every twelve hours Gabapentin 600 MG 2 tablets Orally bid for 20 days Oct, Active Start: 09-29-2021 take 1-2 capsules by mouth twice daily Gabapentin 300 MG 1-2 capsule Orally twice a day for 30 day(s) Sep, Active Start: 12-05-2019 take 1 capsule by mo [facility] every twenty-four hours Gabapentin 300 MG 1 [...] Coronary arteriosclerosis; Translations: [Atherosclerotic heart disease of [place] coronary artery without angina pectoris] Onset: 3 [...] 4 10-10-2023 Episodic Other aftercare (1 source) [facility] (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; Translations: [USP CURRENT USE OF ASPIRIN] Onset: 3 Episodic Other aftercare (1 source) [facility] (current) use of oral hypoglycemic drugs; Translations: [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)] Onset: 4 02-19-2024 Chronic Other nutritional; [...] source) Periodic exam (chief complaint) Onset: 12-02-2024 Unclassified (1 source) Endo (chief complaint) Onset: 12-30-2024 Urinary tract infections (20 sources) Escherichia coli urinary tract infection; Translations: [Urinary tract infection, site not specified] Onset: 07-05-2023 Resolved: 09-03-2024 07-05-2023 Episodic Results Test Name Value Interpretation Reference Range [facility] 12-12-2024 ANES ------ -- Attestation signed by Tk Godoy MD at 12/12/2024 8:20 AM Tk Godoy MD, MPH, [facility], [facility], [facility] Interventional Cardiology Pager Email: [email or web address] -- Patient: Sherly Humphreys Procedure Information Date/Time: 12/12/24 0830 Procedure: Coronary angiography (Left) - PC APPROVED 11/26-12/25 Location: [facility] 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 Additional Equipment Requests Austin Earl MD Material Checker, PGY-4 [facility] 12/12/24 8:07 AM Normal [facility] HPon 12-12-2024 HP ------ -- Attestation signed by Tk Godoy [...] me. Additional Comments: Tk Godoy MD, MPH, [facility], [facility], [facility] Interventional Cardiology Pager Email: [email or web address] -- History Of Present Illness Sherly Humphreys [...] Resource Strain: High Risk (11/18/2024) Received from [facility] Overall Financial Resource Strain (CARDIA) Difficulty of Paying Living Expenses: Hard Food Insecurity: Food Insecurity Present (11/18/2024) Received from [facility] Hunger Vital Sign Worried About Running Out of Food in the Last Year: Often true Ran Out of Food in the Last Year: Often true Transportation Needs: No Transportation Needs (11/18/2024) Received from [facility] PRAPARE - Transportation Lack of Transportation (Medical): No Lack of Transportation (Non-Medical): No Physical Activity: Inactive (11/18/2024) Received from [facility] Exercise Vital Sign Days of Exercise per Week: 0 days Minutes of Exercise per Session: 0 min Stress: Stress Concern Present (11/18/2024) Received from [facility] [place] [employer] - Occupational Stress Questionnaire Feeling of Stress : To some extent Social Connections: Socially Isolated (11/18/2024) Received from [facility] Social Connection and Isolation Panel [NHANES] Frequency of Communication with Friends and Family: More than three times a week Frequency of Social Gatherings with Friends and Family: Once a week Attends Taoist Services: Never Active Member of Clubs or Organizations: No Attends Club or Organization Meetings: Never Marital Status: Never Intimate Partner Violence: Not At Risk (11/18/2024) Received from [facility] Humiliation, Afraid, Rape, and Kick questionnaire Fear of Current or Ex-Partner: No Emotionally Abused: No Physically Abused: No Sexually Abused: No Housing Stability: Low Risk (11/18/2024) Received from [facility] Housing Stability Vital Sign Unable to Pay [...] sounds: Normal breath (more content not included)... [facility] NURSNOTEon 12-12-2024 NURSNOTE RN educated pt [...] off of unit with all of belongings. [facility] Orders Onlyon 12-10-2024 Orders Only [id number] SahraWeller jasmyn Amanda 1970 F Date Provider Department [place] 12/10/2024 [id number], HISTORICAL MATTHEW Alfredo Hamilton Family History Problem Relation Age of Onset Cancer Mother Heart attack Father Family Status - Relation Status Age at Mother Father Normal [facility] ALL CBC WITH AUTO DIFFon BASOPHILS ABSOLUTE AUTO 0.1 [facility] Basophils/100 WBC (Bld) 1 % 0.2 - 2.0 % [facility] Eosinophils/100 WBC (Bld) 3.1 % 0.9 - 7.0 % [facility] Erythrocyte distribution width (RBC) [Ratio] 13.1 % 11.0 - 15.0 % [facility] Hematocrit (Bld) [Volume fraction] 37 % 36.0 - 48.0 % [facility] Hemoglobin (Bld) [Mass/Vol] 11.9 g/dL Low 12.0 - 16.0 g/dL [facility] IMMATURE GRANULOCYTES ABS AUTO 0.01 [facility] Immature granulocytes/100 WBC (Bld) 0.2 % 0.0 - 0.5 % [facility] Interpretation and review of laboratory results Abnormal [facility] LYMPHOCYTES ABSOLUTE AUTO 1.4 [facility] Lymphocytes/100 WBC (Bld) 24.4 % 20.5 - 60.0 % [facility] MCH (RBC) [Entitic mass] 29.8 pg 26.7 - 34.0 pg [facility] MCHC (RBC) [Mass/Vol] 32.2 g/dL 29.9 - 35.2 g/dL [facility] MCV (RBC) [Entitic vol] 92.7 fL 81.0 - 99.0 fL [facility] MONOCYTES ABSOLUTE AUTO 0.3 [facility] Monocytes/100 WBC (Bld) 5.2 % 1.7 - 12.0 % [facility] NEUTROPHILS ABSOLUTE AUTO 3.8 [facility] Neutrophils/100 WBC (Bld) 66.1 % 43.0 - 75.0 % [facility] Platelet mean volume (Bld) [Entitic vol] 10.8 fL 9.5 - 13.5 fL [facility] TBH EO # 0.2 [facility]H PLT 282 [facility] TB RBC 3.99 Low [facility] TB WBC 5.8 [facility] 36on 11-18-2024 36 Regarding stress derek t result from 11/13/2024: Tk Godoy MD to Me (Selected Message) EE 11/18/24 4:19 AM Please let her know her stress test is abnormal and I would recommend cardiac cath: CORS via L radial approach. Thanks Spoke with Sherly and made her aware. Lab orders faxed to [facility]. She verbalized understanding. Normal [facility] Albumin [Mass/volume] in Ser um or Plasma by Bromocresol green (BCG) dye binding methoOrdered By: Halle Mac on 11-18-2024 Albumin BCG dye [Mass/Vol] 4.1 g/dL 3.5-5.7 [facility] Appearance of UrineOrdered B y: Halle Mac on 11-18-2024 Appearance (U) Clear Clear [facility] Comment on above: Order Comment: Name Collection Type:: Clean-Voided Midstream Performed By: #### V [id number], [id number], PROCRERAT, FE and TIBC, URIC, URMACRERAT, UA, MG, PTH, RENAL, CBCNO, GEENA #### [facility] [address] [place] [address] [place] Bacteria [Presence] in Urine by AutomatedOrdered By: Halle Mac on 11-18-2024 Bacteria Auto Ql (U) None seen [HPF] None Seen [facility] Bilirubin Test strip Ql (U)O rdered By: Halle Mac on 11-18-2024 Bilirubin Ql (U) 1+ High Negative [facility] Calcium [Mass/volume] in Ser um or PlasmaOrdered By: Halle Mac on 11-18-2024 Calcium [Mass/Vol] 9.6 mg/dL 8.6-10.3 [facility] Comment on above: Performed By: #### V [id number], [id number], PROCRERAT, FE and TIBC, URIC, URMACRERAT, UA, MG, PTH, RENAL, CBCNO, GEENA #### [facility] [address] [place] [address] [place] Carbon dioxide, total [Moles /volume] in Serum or PlasmaOrdered By: Halle Mac on 11-18-2024 CO2 [Moles/Vol] 28.3 mmol/L 21.0-31.0 [facility] Comment on above: Performed By: #### V [id number], [id number], PROCRERAT, FE and TIBC, URIC, URMACRERAT, UA, MG, PTH, RENAL, CBCNO, GEENA #### [facility] [address] [place] [address] [place] Chloride [Moles/volume] in S brunilda or PlasmaOrdered By: Halle Mac on 11-18-2024 Chloride [Moles/Vol] 111 mmol/L High 98-107 [facility] Comment on above: Performed By: #### V [id number], [id number], PROCRERAT, FE and TIBC, URIC, URMACRERAT, UA, MG, PTH, RENAL, CBCNO, GEENA #### [facility] [address] Color of Urine by AutoOrdere d By: Halle Mac on 11-18-2024 Color (U) Yellow Yellow [facility] Comment on above: Order Comment: Name Collection Type:: Clean-Voided Midstream Performed By: #### V [id number], [id number], PROCRERAT, FE and TIBC, URIC, URMACRERAT, UA, MG, PTH, RENAL, CBCNO, GEENA #### [facility] [address] [place] [phone] [place] Creatinine [Mass/volume] in Serum or PlasmaOrdered By: Halle Mac on 11-18-2024 Creatinine [Mass/Vol] 1.38 mg/dL High 0.60-1.20 [facility] Comment on above: Performed By: #### V [id number], [id number], PROCRERAT, FE and TIBC, URIC, URMACRERAT, UA, MG, PTH, RENAL, CBCNO, GEENA #### [facility] [address] [place] [phone] [place] Creatinine [Mass/volume] in UrineOrdered By: Halle Mac on 11-18-2024 Creatinine (U) [Mass/Vol] 270.00 mg/dL [facility] Comment on above: No reference range e stablished Dipstick and Microscopicon 0 11-18-2024 Bacteria,Urine None Seen Normal None Seen [facility] Comment on above: Order Comment: Name Collection Type:: Clean-Voided Midstream Performed By: #### V [id number], [id number], PROCRERAT, FE and TIBC, URIC, URMACRERAT, UA, MG, PTH, RENAL, CBCNO, GEENA #### [facility] [address] Bilirubin,Urine 1+ Normal Negative [facility] Comment on above: Order Comment: Name Collection Type:: Clean-Voided Midstream Performed By: #### V [id number], [id number], PROCRERAT, FE and TIBC, URIC, URMACRERAT, UA, MG, PTH, RENAL, CBCNO, GEENA #### [facility] [address] Glucose Ql (U) Normal Normal Normal [facility] Comment on above: Order Comment: Name Collection Type:: Clean-Voided Midstream Performed By: #### V [id number], [id number], PROCRERAT, FE and TIBC, URIC, URMACRERAT, UA, MG, PTH, RENAL, CBCNO, GEENA #### [facility] [address] [place] [phone] [place] Hyaline Casts,Urine 9-19 Normal 0-8 [facility] Comment on above: Order Comment: Name Collection Type:: Clean-Voided Midstream Performed By: #### V [id number], [id number], PROCRERAT, FE and TIBC, URIC, URMACRERAT, UA, MG, PTH, RENAL, CBCNO, GEENA #### [facility] [address] [place] [phone] [facility] Mucus,Urine Rare Normal [facility] Comment on above: Order Comment: Name Collection Type:: Clean-Voided Midstream Result Comment: PERF ORMED BY: [place] [address] PATHOLOGIST CHIEF OF STAFF DOCTOR KRISHAN PAEZ M.D. Performed By: #### V [id number], [id number], PROCRERAT, FE and TIBC, URIC, URMACRERAT, UA, MG, PTH, RENAL, CBCNO, GEENA #### [address] Nitrite,Urine Negative Normal Negative [facility] Comment on above: Order Comment: Name Collection Type:: Clean-Voided Midstream Performed By: #### V [id number], [id number], PROCRERAT, FE and TIBC, URIC, URMACRERAT, UA, MG, PTH, RENAL, CBCNO, GEENA #### [address] Occult Blood,Urine Negative Normal Negative [facility] Comment on above: Order Comment: Name Collection Type:: Clean-Voided Midstream Result Comment: PERF ORMED BY: [place] [address] PATHOLOGIST CHIEF OF STAFF DOCTOR KRISHAN PAEZ M.D. Performed By: #### V [id number], [id number], PROCRERAT, FE and TIBC, URIC, URMACRERAT, UA, MG, PTH, RENAL, CBCNO, GEENA #### [address] Protein,Urine Trace Normal Negative [facility] Comment on above: Order Comment: Name Collection Type:: Clean-Voided Midstream Performed By: #### V [id number], [id number], PROCRERAT, FE and TIBC, URIC, URMACRERAT, UA, MG, PTH, RENAL, CBCNO, GEENA #### [address] RBC,Urine 1-2 Normal 0-4 [facility] Comment on above: Order Comment: Name Collection Type:: Clean-Voided Midstream Performed By: #### V [id number], [id number], PROCRERAT, FE and TIBC, URIC, URMACRERAT, UA, MG, PTH, RENAL, CBCNO, GEENA #### [address] Specificy [place],Urine 1.038 High 1.001-1.030 [facility] Comment on above: Order Comment: Name Collection Type:: Clean-Voided Midstream Performed By: #### V [id number], [id number], PROCRERAT, FE and TIBC, URIC, URMACRERAT, UA, MG, PTH, RENAL, CBCNO, GEENA #### [address] Squamous Epithelial Cell,Urine 1-2 Normal 0-2 [facility] Comment on above: Order Comment: Name Collection Type:: Clean-Voided Midstream Performed By: #### V [id number], [id number], PROCRERAT, FE and TIBC, URIC, URMACRERAT, UA, MG, PTH, RENAL, CBCNO, GEENA #### [address] Urobilinogen,Urine 2 mg/dL Normal Normal [facility] Comment on above: Order Comment: Name Collection Type:: Clean-Voided Midstream Performed By: #### V [id number], [id number], PROCRERAT, FE and TIBC, URIC, URMACRERAT, UA, MG, PTH, RENAL, CBCNO, GEENA #### [address] WBC,Urine 1-2 Normal 0-4 [facility] Comment on above: Order Comment: Name Collection Type:: Clean-Voided Midstream Performed By: #### V [id number], [id number], PROCRERAT, FE and TIBC, URIC, URMACRERAT, UA, MG, PTH, RENAL, CBCNO, GEENA #### [address] Epithelial cells.squamous [# /area] in Urine sediment by Automated countOrdered By: Halle merida 11-18-2024 Epithelial cells.squamous Auto (Urine sed) [#/Area] 1-2 [HPF] 0-2 [facility] Erythrocyte distribution wid th [Ratio] by Automated countOrdered By: Halle Mac on 11-18-2024 Erythrocyte distribution width (RBC) [Ratio] 13.9 % 11.9-15.3 [facility] Comment on above: Performed By: #### V [id number], [id number], PROCRERAT, FE and TIBC, URIC, URMACRERAT, UA, MG, PTH, RENAL, CBCNO, GEENA #### [facility] [address] Erythrocytes [#/area] in Uri ne sediment by Automated countOrdered By: Halle Mac on 11-18-2024 RBC Auto (Urine sed) [#/Area] 1-2 [HPF] 0-4 [facility] Erythrocytes [#/volume] in B lood by Automated countOrdered By: Halle Mac on 11-18-2024 RBC (Bld) [#/Vol] 3.67 10*6/uL 3.60-5.00 [facility] Comment on above: Performed By: #### V [id number], [id number], PROCRERAT, FE and TIBC, URIC, URMACRERAT, UA, MG, PTH, RENAL, CBCNO, GEENA #### [facility] [address] [place] [address] [place] Ferritin [Mass/volume] in Se rum or PlasmaOrdered By: Halle Mac on 11-18-2024 Ferritin [Mass/Vol] 235.3 ng/mL 11.0-306.8 [facility] Comment on above: Performed By: #### V [id number], [id number], PROCRERAT, FE and TIBC, URIC, URMACRERAT, UA, MG, PTH, RENAL, CBCNO, GEENA #### [facility] [address] [place] [id number] [place] Folate [Mass/volume] in Seru m or PlasmaOrdered By: Halle Mac on 11-18-2024 Folate [Mass/Vol] 9.8 ng/mL >5.9 [facility] Comment on above: Folate reference ran ge: >5.9 ng/mlThe WHO technical consultation on folate and vitamin [id number] has determined that folate concentrations lessthan 4 ng/ml are considered deficient. Glucose [Mass/volume] in Ser um or PlasmaOrdered By: Halle Mca on 11-18-2024 Glucose [Mass/Vol] 88 mg/dL 70-100 [facility] Comment on above: ADA recommended refe rence rangeRandom Glucose Reference Range is dependent on time and content of last meal. Glucose of more than 200 mg/dL in a nonstressed, ambulatory subject supports the diagnosis of Diabetes Mellitus. Result Comment: Moody om Glucose Reference Range is dependent on time and content of last meal. Glucose of more than 200 mg/dL in a nonstressed, ambulatory subject supports the diagnosis of Diabetes Mellitus. ADA recommended reference range Performed By: #### V [id number], [id number], PROCRERAT, FE and TIBC, URIC, URMACRERAT, UA, MG, PTH, RENAL, CBCNO, GEENA #### [facility] [address] [place] [address] [place] Glucose [Mass/volume] in Uri ne by Test stripOrdered By: Halle Mac on 11-18-2024 Glucose Test strip (U) [Mass/Vol] Normal mg/dL Normal [facility] Hematocrit [Volume Fraction] of Blood by Automated countOrdered By: Halle Mac on 11-18-2024 Hematocrit (Bld) [Volume fraction] 33.1 % Low 34.0-46.4 [facility] Comment on above: Performed By: #### V [id number], [id number], PROCRERAT, FE and TIBC, URIC, URMACRERAT, UA, MG, PTH, RENAL, CBCNO, GEENA #### [facility] [address] Hemoglobin Test strip Ql (U) Ordered By: Halle Mac on 11-18-2024 Hemoglobin Ql (U) Negative Negative [facility] Hemoglobin [Mass/volume] in BloodOrdered By: Halle Mac on 11-18-2024 Hemoglobin (Bld) [Mass/Vol] 10.8 g/dL Low 11.8-15.4 [facility] Comment on above: Performed By: #### V [id number], [id number], PROCRERAT, FE and TIBC, URIC, URMACRERAT, UA, MG, PTH, RENAL, CBCNO, GEENA #### [facility] [address] Hemogram CBC Without Diffon 11-18-2024 Mean Corpuscular HGB Conc 32.7 g/dL Normal 32.0-35.0 [facility] Comment on above: Performed By: #### V [id number], [id number], PROCRERAT, FE and TIBC, URIC, URMACRERAT, UA, MG, PTH, RENAL, CBCNO, GEENA #### [facility] [address] White Blood Count 9.7 [CFU]/mL Normal 3.8-11.6 [facility] Comment on above: Performed By: #### V [id number], [id number], PROCRERAT, FE and TIBC, URIC, URMACRERAT, UA, MG, PTH, RENAL, CBCNO, GEENA #### [address] Hyaline casts [#/area] in Ur ine sediment by Automated countOrdered By: Halle Mac on 11-18-2024 Hyaline casts Auto (Urine sed) [#/Area] 9-19 [LPF] High 0-8 [facility] Iron [Mass/volume] in Serum or PlasmaOrdered By: Halle Mac on 11-18-2024 Iron [Mass/Vol] 64 ug/dL 50-212 [facility] Comment on above: Performed By: #### V [id number], [id number], PROCRERAT, FE and TIBC, URIC, URMACRERAT, UA, MG, PTH, RENAL, CBCNO, GEENA #### [facility] [address] Iron and TIBC Profileon 08-0 % Iron Saturation 15.4 % Low 20-50 [facility] Comment on above: Performed By: #### V [id number], [id number], PROCRERAT, FE and TIBC, URIC, URMACRERAT, UA, MG, PTH, RENAL, CBCNO, GEENA #### [facility] [address] Total Iron Binding Capacity 416 ug/dL Normal 255-450 [facility] Comment on above: Performed By: #### V [id number], [id number], PROCRERAT, FE and TIBC, URIC, URMACRERAT, UA, MG, PTH, RENAL, CBCNO, GEENA #### [address] Ketones [Presence] in Urine by Test stripOrdered By: Halle Mac on 11-18-2024 Ketones Ql (U) Negative Negative [facility] Comment on above: Order Comment: Name Collection Type:: Clean-Voided Midstream Performed By: #### V [id number], [id number], PROCRERAT, FE and TIBC, URIC, URMACRERAT, UA, MG, PTH, RENAL, CBCNO, GEENA #### [address] Leukocyte esterase [Presence ] in Urine by Test stripOrdered By: Halle Mac on 11-18-2024 Leukocyte esterase Test strip Ql (U) 3+ High Negative [facility] Comment on above: Order Comment: Name Collection Type:: Clean-Voided Midstream Performed By: #### V [id number], [id number], PROCRERAT, FE and TIBC, URIC, URMACRERAT, UA, MG, PTH, RENAL, CBCNO, GEENA #### [place] [address] [place] Leukocytes [#/area] in Urine sediment by Automated countOrdered By: Halle Mac on 11-18-2024 WBC Auto (Urine sed) [#/Area] 1-2 [HPF] 0-4 [facility] Leukocytes [#/volume] correc joaquin for nucleated erythrocytes in Blood by Automated counOrdered By: Halle Mac on 11-18-2024 WBC corrected for nucl RBC Auto (Bld) [#/Vol] 9.7 10*3/uL 3.8-11.6 [facility] MCH [Entitic mass] by Automa joaquin countOrdered By: Halle Mac on 11-18-2024 MCH (RBC) [Entitic mass] 29.5 pg 24.7-34.3 [facility] Comment on above: Performed By: #### V [id number], [id number], PROCRERAT, FE and TIBC, URIC, URMACRERAT, UA, MG, PTH, RENAL, CBCNO, GEENA #### [facility] [address] MCHC Auto (RBC) [Mass/Vol]Or dered By: Halle Mac on 11-18-2024 MCHC (RBC) [Mass/Vol] 32.7 g/dL 32.0-35.0 [facility] MCV [Entitic volume] by Auto mated countOrdered By: Halle Mac on 11-18-2024 MCV (RBC) [Entitic vol] 90.3 fL 80-100 [facility] Comment on above: Performed By: #### V [id number], [id number], PROCRERAT, FE and TIBC, URIC, URMACRERAT, UA, MG, PTH, RENAL, CBCNO, GEENA #### [facility] [address] Magnesium [Mass/volume] in S brunilda or PlasmaOrdered By: Halle Mac on 11-18-2024 Magnesium [Mass/Vol] 2.1 mg/dL 1.9-2.7 [facility] Comment on above: Performed By: #### V [id number], [id number], PROCRERAT, FE and TIBC, URIC, URMACRERAT, UA, MG, PTH, RENAL, CBCNO, GEENA #### [facility] [address] MicroAlb Creat Ratio,Uon Creatinine, Urine (Random) 270.00 mg/dL Normal [facility] Comment on above: Result Comment: No r eference range established Performed By: #### V [id number], [id number], PROCRERAT, FE and TIBC, URIC, URMACRERAT, UA, MG, PTH, RENAL, CBCNO, GEENA #### [facility] [address] [place] [id number] [facility] Microalbumin/Creatinin e Ratio 8.1 mg/g Normal 0.0-30.0 [facility] Comment on above: Result Comment: 30-3 00 mg/g indicates an increased risk for diabetic nephropathy. Greater than 300 mg/g is consistent with clinical nephropathy. (Am. J. Kidney Disease 1995, 25:107) Performed By: #### V [id number], [id number], PROCRERAT, FE and TIBC, URIC, URMACRERAT, UA, MG, PTH, RENAL, CBCNO, GEENA #### [facility] [address] [place] [id number] [facility] Microalbumin [Mass/volume] i n UrineOrdered By: Halle Mac on 11-18-2024 Albumin DL <= 20 mg/L (U) [Mass/Vol] 2.2 mg/dL High 0.0-1.8 [facility] Comment on above: Performed By: #### V [id number], [id number], PROCRERAT, FE and TIBC, URIC, URMACRERAT, UA, MG, PTH, RENAL, CBCNO, GEENA #### [facility] [address] Mucus [Presence] in Urine by AutomatedOrdered By: Halle Mac on 11-18-2024 Mucus Auto Ql (U) Rare [LPF] [facility] Nitrite Test strip Ql (U)Ord ered By: Halle Mac on 11-18-2024 Nitrite Ql (U) Negative Negative [facility] No Panel InformationOrdered By: Halle Mac on 11-18-2024 Estimated GFR (CKD-EPI) 45.770 mL/Min [facility] Creatinine Clearance (Chem N/A [facility] Parathyrin.intact [Mass/volu me] in Serum or PlasmaOrdered By: Halle Mac on 11-18-2024 Parathyrin.intact [Mass/Vol] 25.6 pg/mL [facility] Parathyroid Hormone Intacton 11-18-2024 Parathyroid Hormone Intact 25.6 pg/mL Normal [facility] Comment on above: Result Comment: PERF ORMED BY: [place] [address] PATHOLOGIST CHIEF OF STAFF DOCTOR KRISHAN PAEZ M.D. Performed By: #### V [id number], [id number], PROCRERAT, FE and TIBC, URIC, URMACRERAT, UA, MG, PTH, RENAL, CBCNO, GEENA #### [facility] [address] Phosphate [Mass/volume] in S brunilda or PlasmaOrdered By: Halle Mac on 11-18-2024 Phosphate [Mass/Vol] 3.5 mg/dL 2.5-4.5 [facility] Comment on above: Performed By: #### V [id number], [id number], PROCRERAT, FE and TIBC, URIC, URMACRERAT, UA, MG, PTH, RENAL, CBCNO, GEENA #### [facility] [address] Platelet mean volume [Entiti c volume] in Blood by Automated countOrdered By: Halle Mac on 11-18-2024 Platelet mean volume (Bld) [Entitic vol] 9.4 fL 6.3-10.7 [facility] Comment on above: Result Comment: PERF ORMED BY: [place] [address] PATHOLOGIST CHIEF OF STAFF DOCTOR KRISHAN PAEZ M.D. Performed By: #### V [id number], [id number], PROCRERAT, FE and TIBC, URIC, URMACRERAT, UA, MG, PTH, RENAL, CBCNO, GEENA #### [facility] [address] Platelets [#/volume] in Bloo d by Automated countOrdered By: Halle Mac on 11-18-2024 Platelets (Bld) [#/Vol] 258 10*3/uL 150-450 [facility] Comment on above: Performed By: #### V [id number], [id number], PROCRERAT, FE and TIBC, URIC, URMACRERAT, UA, MG, PTH, RENAL, CBCNO, GEENA #### [facility] [address] Potassium [Moles/volume] in Serum or PlasmaOrdered By: Halle Mac on 11-18-2024 Potassium [Moles/Vol] 4.6 mmol/L 3.5-5.1 [facility] Comment on above: Performed By: #### V [id number], [id number], PROCRERAT, FE and TIBC, URIC, URMACRERAT, UA, MG, PTH, RENAL, CBCNO, GEENA #### [facility] [address] Protein Creat Ratio Ur Rando mon 11-18-2024 Urine Protein/Creatinine Ratio 85 mg/g{Cre} Normal 0-200 [facility] Comment on above: Result Comment: PERF ORMED BY: [place] [address] PATHOLOGIST CHIEF OF STAFF DOCTOR KRISHAN PAEZ M.D. Performed By: #### V [id number], [id number], PROCRERAT, FE and TIBC, URIC, URMACRERAT, UA, MG, PTH, RENAL, CBCNO, GEENA #### [facility] [address] Protein Test strip (U) [Mass /Vol]Ordered By: Halle Mac on 11-18-2024 Protein (U) [Mass/Vol] Trace mg/dL High Negative [facility] Protein [Mass/volume] in Uri neOrdered By: Halle Mac on 11-18-2024 Protein (U) [Mass/Vol] 23 mg/dL High 0-9 [facility] Comment on above: Performed By: #### V [id number], [id number], PROCRERAT, FE and TIBC, URIC, URMACRERAT, UA, MG, PTH, RENAL, CBCNO, GEENA #### [facility] [address] Renal Function Panelon 11-18 Albumin [Mass/Vol] 4.1 g/dL Normal 3.5-5.7 [facility] Comment on above: Performed By: #### V [id number], [id number], PROCRERAT, FE and TIBC, URIC, URMACRERAT, UA, MG, PTH, RENAL, CBCNO, GEENA #### [address] GFR/1.73 sq M.predicted MDRD (S/P/Bld) [Vol rate/Area] 45.770 mL/min/{1.73_m2} Normal [facility] Comment on above: Performed By: #### V [id number], [id number], PROCRERAT, FE and TIBC, URIC, URMACRERAT, UA, MG, PTH, RENAL, CBCNO, GEENA #### [address] Serum or plasma anion gap de terminationOrdered By: Halle Mac on 11-18-2024 Anion gap [Moles/Vol] 9.3 mmol/L 6.0-15.0 [facility] Comment on above: Performed By: #### V [id number], [id number], PROCRERAT, FE and TIBC, URIC, URMACRERAT, UA, MG, PTH, RENAL, CBCNO, GEENA #### [address] Serum or plasma iron binding capacity measurement (mass/volume)Ordered By: Halle Mac on 11-18-2024 Iron binding capacity [Mass/Vol] 416 ug/dL 255-450 [facility] Serum or plasma iron saturat ion measurement (mass fraction)Ordered By: Halle Mac on 11-18-2024 Iron saturation [Mass fraction] 15.4 % Low 20-50 [facility] Sodium [Moles/volume] in Ser um or PlasmaOrdered By: Halle Mac on 11-18-2024 Sodium [Moles/Vol] 144 mmol/L 136-145 [facility] Comment on above: Performed By: #### V [id number], [id number], PROCRERAT, FE and TIBC, URIC, URMACRERAT, UA, MG, PTH, RENAL, CBCNO, GEENA #### [facility] [address] Specific gravity Test strip (U) [Rel density]Ordered By: Halle Mac on 11-18-2024 Specific gravity (U) [Rel density] 1.038 High 1.001-1.030 [facility] Telephoneon 11-18-2024 Telephone [id number] Nithin Humphreys 1970 F Date Provider Department Center 11/18/2024 Rogelio-NEO CODY MATTHEW [place] Family History Problem Relation Age of Onset Cancer Mother Heart attack Father Family Status - Relation Status Age at Mother Father Normal [facility] Transferrin [Mass/volume] in Serum or PlasmaOrdered By: Halle Mac on 11-18-2024 Transferrin [Mass/Vol] 297 mg/dL 203-362 [facility] Comment on above: Performed By: #### V [id number], [id number], PROCRERAT, FE and TIBC, URIC, URMACRERAT, UA, MG, PTH, RENAL, CBCNO, GEENA #### [facility] [address] [place] [id number] [facility] Urate [Mass/volume] in Serum or PlasmaOrdered By: Halle Mac on 11-18-2024 Urate [Mass/Vol] 5.1 mg/dL 2.3-6.6 [facility] Comment on above: Performed By: #### V [id number], [id number], PROCRERAT, FE and TIBC, URIC, URMACRERAT, UA, MG, PTH, RENAL, CBCNO, GEENA #### [facility] [address] Urea nitrogen [Mass/volume] in Serum or PlasmaOrdered By: Halle Mac on 11-18-2024 Urea nitrogen [Mass/Vol] 25 mg/dL 7-25 [facility] Comment on above: Performed By: #### V [id number], [id number], PROCRERAT, FE and TIBC, URIC, URMACRERAT, UA, MG, PTH, RENAL, CBCNO, GEENA #### [facility] [address] Urine microalbumin/creatinin e mass ratioOrdered By: Halle Mac on 11-18-2024 Albumin/Creatinine DL <= 20 mg/L (U) [Mass ratio] 8.1 mg/g 0.0-30.0 [facility] Comment on above: 30-300 mg/g indicate s an increased risk for diabetic nephropathy. Greater than 300 mg/g is consistent with clinical nephropathy. (Am. J. Kidney Disease 1995, 25:107) Urine protein/creatinine rat ioOrdered By: Halle Mac on 11-18-2024 Protein/Creatinine (U) [Ratio] 85 mg/g{Cre} 0-200 [facility] Urobilinogen Test strip (U) [Mass/Vol]Ordered By: Halle Mac on 11-18-2024 Urobilinogen (U) [Mass/Vol] 2 mg/dL High Normal [facility] Vit. B12/Folate Profileon Folate 9.8 ng/mL Normal >5.9 [facility] Comment on above: Result Comment: Maria te reference range: >5.9 ng/ml The WHO technical consultation on folate and vitamin b12 deficiencies has determined that folate concentrations less than 4 ng/ml are considered deficient. Performed By: #### V [id number], [id number], PROCRERAT, FE and TIBC, URIC, URMACRERAT, UA, MG, PTH, RENAL, CBCNO, GEENA #### [facility] [address] [place] [id number] [facility] Vitamin B12 ser/plasOrdered By: Halle Mac on 11-18-2024 Cobalamin (Vitamin B12) [Mass/Vol] 934 pg/mL High 180-914 [facility] Comment on above: Performed By: #### V [id number], [id number], PROCRERAT, FE and TIBC, URIC, URMACRERAT, UA, MG, PTH, RENAL, CBCNO, GEENA #### [facility] [address] [place] [id number] [facility] Vitamin D 25 Hydroxy Totalon 11-18-2024 Vitamin D 25 Hydroxy Total 23.9 ng/mL Low 30-100 [facility] Comment on above: Result Comment: AWAIS MIN D STATUS 25(OH)VITAMIN D RANGE (ng/mL) Deficient <20 Insufficient 20 to <30 Sufficient 30 to 100 Reference: Nicole Almonte, Ed LI, et al. Evaluation,treatment, and prevention of vitamin D deficiency; an Endocrine Society clinical practice guideline. JCEM. 2010; 96(7):1911-30. PERFORMED BY: [place] [address] PATHOLOGIST CHIEF OF STAFF DOCTOR KRISHAN PAEZ M.D. Performed By: #### V [id number], [id number], PROCRERAT, FE and TIBC, URIC, URMACRERAT, UA, MG, PTH, RENAL, CBCNO, GEENA #### [facility] [address] [place] [id number] [facility] Vitamin D+Metabolites [Mass/ volume] in Serum or PlasmaOrdered By: Halle Mac on 11-18-2024 Vitamin D+Metabolites [Mass/Vol] 23.9 ng/mL Low 30-100 [facility] Comment on above: VITAMIN D STATUS 25( OH)VITAMIN D RANGE (ng/mL) Deficient <20 Insufficient 20 to <30Sufficient 30 to 100Reference: Nicole Almonte, Ed LI et al. Evaluation,treatment, and prevention of vitamin D deficiency; an Endocrine Society clinical practice guideline. JCEM. 2010; 96(7):1911-30. pH of Urine by Test stripOrd ered By: Halle Mac on 11-18-2024 pH (U) 5.0 [pH] 5.0-9.0 [facility] Comment on above: Order Comment: Name Collection Type:: Clean-Voided Midstream Performed By: #### V [id number], [id number], PROCRERAT, FE and TIBC, URIC, URMACRERAT, UA, MG, PTH, RENAL, CBCNO, GEENA #### [facility] [address] NM ROZ PERF SPECT REST STRon 11-17-2024 [place] [address] Nuclear Medicine Report Signed Patient: SHERLY HUMPHREYS MR#: [id number] : 1970 Acct:[id number] Age/Sex: 53 / F ADM Date: 11/13/24 Loc: [place] Attending Dr: Tk Godoy M.D. Ordering Physician: Tk Godoy M.D. Date of Service: 11/13/24 Procedure(s): NM roz perf SPECT rest str Accession Number(s): [id number] cc: Janene Lew EMPLOYMENT INTERVIEWER; Tk Godoy M.D. Patient Name: SHERLY HUMPHREYS MR#: [id number] : 1970 Exam Date: 11/13/2024 Ordering Doctor: [...] By: 11/17/24 1002 DD/ 1001 TD/TT: Senior Oracle Pl Sql Developer: [facility] Radiology, Radiologi MD erasmo - 11/17/2024 [place] [address] Nuclear Medicine Report Signed Patient: SHERLY HUMPHREYS MR#: [id number] : 1970 Acct:[id number] Age/Sex: 53 / F ADM Date: 11/13/24 Loc: [place] Attending Dr: Tk Godoy M.D. Ordering Physician: Tk Godoy M.D. Date of Service: 11/13/24 Procedure(s): NM roz perf SPECT rest str Accession Number(s): [id number] cc: Janene Lew EMPLOYMENT INTERVIEWER; Tk Godoy M.D. Patient Name: SHERLY HUMPHREYS MR#: [id number] : 1970 Exam Date: 11/13/2024 Ordering Doctor: [...] By: 11/17/24 1002 DD/ 1001 TD/TT: Senior Oracle Pl Sql Developer: [facility] Radiology Study observation (narrative) [facility] NM ROZ PERF SPECT REST STROr dered By: Radiologist Radiology on 11-17-2024 [facility] Work Phone: Orders Onlyon 11-17-2024 Orders Only [id number] Nithin Humphreys 1970 F Date Provider Department [place] 11/17/2024 [id number], HISTORICAL CARD [facility] Family History Problem Relation Age of Onset Cancer Mother Heart attack Father Family Status - Relation Status Age at Mother Father Normal [facility] HbA1c (Bld) [Mass fraction]o n 11-03-2024 Interpretation and review of laboratory results Normal [facility] - Hematology and Cell countson 11-03-2024 HbA1c (Bld) [Mass fraction] 5.2 % [facility] Healthcare Office Visiton 10-16-2024 Follow-up visit [id number] Nithin Humphreys 1970 F Date Provider Department Center 10/16/2024 [id number] GODOY SEYMOUR [facility] Family History Problem Relation Age of Onset Cancer Mother Heart attack Father Family Status - Relation Status Age at Mother Father Level of Service:[id number] [place] OFFICE/OUTPATIENT ESTABLISHED MOD MDM 30 MIN Normal [facility] ALL CBC WITH AUTO DIFFon BASOPHILS ABSOLUTE AUTO 0.1 [facility] Basophils/100 WBC (Bld) 1.1 % 0.2 - 2.0 % [facility] Eosinophils/100 WBC (Bld) 3.1 % 0.9 - 7.0 % [facility] Erythrocyte distribution width (RBC) [Ratio] 12.9 % 11.0 - 15.0 % [facility] Hematocrit (Bld) [Volume fraction] 33.2 % Low 36.0 - 48.0 % [facility] Hemoglobin (Bld) [Mass/Vol] 11.1 g/dL Low 12.0 - 16.0 g/dL [facility] IMMATURE GRANULOCYTES ABS AUTO 0.01 [facility] Immature granulocytes/100 WBC (Bld) 0.2 % 0.0 - 0.5 % [facility] Interpretation and review of laboratory results Abnormal [facility] LYMPHOCYTES ABSOLUTE AUTO 1.7 [facility] Lymphocytes/100 WBC (Bld) 38.2 % 20.5 - 60.0 % [facility] MCH (RBC) [Entitic mass] 30.1 pg 26.7 - 34.0 pg [facility] MCHC (RBC) [Mass/Vol] 33.4 g/dL 29.9 - 35.2 g/dL [facility] MCV (RBC) [Entitic vol] 90 fL 81.0 - 99.0 fL [facility] MONOCYTES ABSOLUTE [facility] Monocytes/100 WBC (Bld) 7 % 1.7 - 12.0 % [facility] NEUTROPHILS ABSOLUTE AUTO 2.2 [facility] Neutrophils/100 WBC (Bld) 50.4 % 43.0 - 75.0 % [facility] Platelet mean volume (Bld) [Entitic vol] 11.2 fL 9.5 - 13.5 fL [facility] TBH EO # 0.1 [facility] TBH PLT 234 [facility] TBH RBC 3.69 Low [facility] TB WBC 4.5 [facility] CLINISYNC [facility] ECG 12-LEADon 10-07-2024 [place] [address] Electrocardiograph Report Signed Patient: SHERLY HUMPHREYS MR#: [id number] : 1970 Acct:[id number] Age/Sex: 53 / F ADM Date: 10/07/24 Loc: [facility] Attending Dr: Marcella Conway M.D. Ordering Physician: Marcella Conway M.D. Date of Service: 10/07/24 Procedure(s): ECG 12 lead Accession Number(s): [id number] cc: [facility] Test Date: 2024-10-07 Pat Name: SHERLY HUMPHREYS Department: Room: - Gender: Female Medical Laboratory Technician: : 1970 Requested By: 1822 Order Number: [id number] Reading MD: LITO EDEN M.D. Measurements Intervals Russell Rate: 51 P: 30 WV: 182 QRS: [...] Dictated By: LITO EDEN Signed By: 10/07/24 9324 DD/ 1001 TD/TT: Senior Oracle Pl Sql Developer: [facility] Radiology Radiologlawrence zimmerman MD - 10/07/2024 [place] [address] Electrocardiograph Report Signed Patient: SHERLY HUMPHREYS MR#: [id number] : 1970 Acct:[id number] Age/Sex: 53 / F ADM Date: 10/07/24 Loc: PST Attending Dr: Marcella Conway M.D. Ordering Physician: Marcella Conway M.D. Date of Service: 10/07/24 Procedure(s): ECG 12 lead Accession Number(s): [id number] cc: [facility] Test Date: 2024-10-07 Pat Name: SHERLY HUMPHREYS Department: Room: - Gender: Female Medical Laboratory Technician: : 1970 Requested By: 1822 Order Number: [id number] Reading MD: LITO EDEN M.D. Measurements Intervals Russell Rate: 51 P: 30 WV: 182 QRS: [...] Dictated By: LITO EDEN Signed By: 10/07/24 2558 DD/ 1001 TD/TT: Senior Oracle Pl Sql Developer: [facility] Radiology Study observation (narrative) [facility] ECG 12-LEADOrdered By: Radio logist Radiology on 10-07-2024 [facility] [employer] Work Phone: XR CHEST 2Von 10-07-2024 [place] [address] XRay Report Signed Patient: SHERLY HUMPHREYS MR#: [id number] : 1970 Acct:[id number] Age/Sex: 53 / F ADM Date: 10/07/24 Loc: PST Attending Dr: Marcella Conway M.D. Ordering Physician: Marcella Conway M.D. Date of Service: 10/07/24 Procedure(s): XR chest 2V Accession Number(s): [id number] cc: Janene Lew NP; Marcella Conway M.D. The [place] [id number] Patient Name: SHERLY HUMPHREYS MRN: [facility]:[id number] date: 1970 Sex: F Assigned Patient Location: [facility] Current Patient Location: [facility] Accession/Order Number: [id number] Exam Date: 10/07/2024 12:58 Report Date: 10/07/2024 12:59 At the request of: MARCELLA CONWAY MD Procedure: XR chest 2V Chest 2 views CLINICAL HISTORY: Pre Op COMPARISON: Chest 07/05/2024 FINDINGS: Heart normal in size. Lungs are clear. No free air. XR/XR chest 2V IMPRESSION: NO ACUTE CARDIOPULMONARY ABNORMALITY. Impression dictated by: Kip Mon Jr., D.O. 10/07/2024 12:59 PM Dictation Location: [place] [address] Electronically authenticated by: [id number] Y Date: 10/07/2024 12:59 Dictated By: Kip Mon M.D. Signed By: 10/07/24 1302 DD/ 1259 TD/TT: Senior Oracle Pl Sql Developer: [facility] RadiologyGhadaoglawrence zimmerman MD - 10/07/2024 The [place] [id number] XRay Report Signed Patient: SHERLY HUMPHREYS MR#: [id number] : 1970 Acct:[id number] Age/Sex: 53 / F ADM Date: 10/07/24 Loc: PST Attending Dr: Marcella Conway M.D. Ordering Physician: Marcella Conway M.D. Date of Service: 10/07/24 Procedure(s): XR chest 2V Accession Number(s): [id number] cc: Janene Lew EMPLOYMENT INTERVIEWER; Marcella Conway M.D. [place] [id number] Patient Name: SHERLY HUMPHREYS MRN: [id number] date: 1970 Sex: F Assigned Patient Location: [facility] Current Patient Location: [facility] Accession/Order Number: [id number] Exam Date: 10/07/2024 12:58 Report Date: 10/07/2024 12:59 At the request of: MARCELLA CONWAY MD Procedure: XR chest 2V Chest 2 views CLINICAL HISTORY: Pre Op COMPARISON: Chest 07/05/2024 FINDINGS: Heart normal in size. Lungs are clear. No free air. XR/XR chest 2V IMPRESSION: NO ACUTE CARDIOPULMONARY ABNORMALITY. Impression dictated by: Kip Mon Jr., D.OGerardo 10/07/2024 12:59 PM Dictation Location: [place] [address] Electronically authenticated by: [id number] Y Date: 10/07/2024 12:59 Dictated By: Kip Mon M.D. Signed By: 10/07/24 1302 DD/ 1259 TD/TT: Senior Oracle Pl Sql Developer: [facility] Radiology Study observation (narrative) [facility] XR CHEST 2VOrdered By: [facility] on 10-07-2024 [facility] Work Phone: ALL CBC WITH AUTO DIFFon BASOPHILS ABSOLUTE AUTO 0.1 [facility] Basophils/100 WBC (Bld) 0.8 % 0.2 - 2.0 % [facility] Eosinophils/100 WBC (Bld) 3.2 % 0.9 - 7.0 % [facility] Erythrocyte distribution width (RBC) [Ratio] 13 % 11.0 - 15.0 % [facility] Hematocrit (Bld) [Volume fraction] 33.6 % Low 36.0 - 48.0 % [facility] Hemoglobin (Bld) [Mass/Vol] 10.9 g/dL Low 12.0 - 16.0 g/dL [facility] IMMATURE GRANULOCYTES ABS AUTO 0.01 [facility] Immature granulocytes/100 WBC (Bld) 0.2 % 0.0 - 0.5 % [facility] Interpretation and review of laboratory results Abnormal [facility] LYMPHOCYTES ABSOLUTE AUTO 2.8 [facility] Lymphocytes/100 WBC (Bld) 46.4 % 20.5 - 60.0 % [facility] MCH (RBC) [Entitic mass] 30.2 pg 26.7 - 34.0 pg [facility] MCHC (RBC) [Mass/Vol] 32.4 g/dL 29.9 - 35.2 g/dL [facility] MCV (RBC) [Entitic vol] 93.1 fL 81.0 - 99.0 fL [facility] MONOCYTES ABSOLUTE AUTO 0.4 [facility] Monocytes/100 WBC (Bld) 6.6 % 1.7 - 12.0 % [facility] NEUTROPHILS ABSOLUTE AUTO 2.5 [facility] Neutrophils/100 WBC (Bld) 42.8 % Low 43.0 - 75.0 % [facility] Platelet mean volume (Bld) [Entitic vol] 10.8 fL 9.5 - 13.5 fL [facility] TBH EO # 0.2 [facility] TB PLT [address] 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 08/28/2024 10:30 AM Dictation Location: [place] [address] Electronically authenticated by: [id number] Y Date: 08/28/2024 10:30 Dictated By: Franco Lubin M.D. Signed By: 08/28/24 1032 DD/ 1030 TD/TT: Senior Oracle Pl Sql Developer: [facility] Radiology, Radiologi MD erasmo - 08/28/2024 The [place] [id number] XRay Report Signed Patient: SHERLY HUMPHREYS MR#: [id number] : 1970 Acct:[id number] Age/Sex: 53 / F ADM Date: 08/28/24 Loc: RAD Attending Dr: Elizabeth Meneses NP Ordering Physician: Elizabeth Meneses NP Date of Service: 08/28/24 Procedure(s): XR hip RT min 2V Accession Number(s): [id number] cc: Janene Lew NP; Elizabeth Meneses NP The [address] [address] Patient Name: SHERLY HUMPHREYS MRN: [facility]:[id number] date: 1970 Sex: F Assigned Patient Location: RAD Current Patient Location: RAD Accession/Order Number: [id number] Exam Date: 08/28/2024 10:29 Report Date: 08/28/2024 [...] Lubin M.D. 08/28/2024 10:30 AM Dictation Location: [place] [address] Electronically authenticated by: [id number] Y Date: 08/28/2024 10:30 Dictated By: Franco Lubin M.D. Signed By: 08/28/24 1032 DD/ 1030 TD/TT: Senior Oracle Pl Sql Developer: [facility] Radiology Study observation (narrative) [facility] XR Hip - right 3 ViewsOrdere d By: Radiologist Radiology on 08-28-2024 [facility] Work Phone: HbA1c (Bld) [Mass fraction]o n 06-16-2024 Interpretation and review of laboratory results Normal [facility] - Hematology and Cell countson 06-16-2024 HbA1c (Bld) [Mass fraction] 5.5 % [facility] Ferritinon 03-11-2024 Ferritin [Mass/Vol] 135.5 ng/mL Normal 11.0-306.8 The [facility] Comment on above: Performed By: #### V [id number], [id number], PROCRERAT, FE and TIBC, URIC, URMACRERAT, UA, MG, PTH, RENAL, CBCNO, GEENA #### [facility] [address] [place] [address] Hemogram CBC Without Diffon 03-11-2024 Erythrocyte distribution width (RBC) [Ratio] 14.6 % Normal 11.9-15.3 The [facility] Comment on above: Performed By: #### V [id number], [id number], PROCRERAT, FE and TIBC, URIC, URMACRERAT, UA, MG, PTH, RENAL, CBCNO, GEENA #### [address] Hematocrit (Bld) [Volume fraction] 34.9 % Normal 34.0-46.4 The [facility] Comment on above: Performed By: #### V [id number], [id number], PROCRERAT, FE and TIBC, URIC, URMACRERAT, UA, MG, PTH, RENAL, CBCNO, GEENA #### [address] Hemoglobin (Bld) [Mass/Vol] 11.4 g/dL Low 11.8-15.4 The [facility] Comment on above: Performed By: #### V [id number], [id number], PROCRERAT, FE and TIBC, URIC, URMACRERAT, UA, MG, PTH, RENAL, CBCNO, GEENA #### [address] MCH (RBC) [Entitic mass] 29.7 pg Normal 24.7-34.3 The [facility] Comment on above: Performed By: #### V [id number], [id number], PROCRERAT, FE and TIBC, URIC, URMACRERAT, UA, MG, PTH, RENAL, CBCNO, GEENA #### [address] MCV (RBC) [Entitic vol] 91.3 fL Normal 80-100 The [facility] Comment on above: Performed By: #### V [id number], [id number], PROCRERAT, FE and TIBC, URIC, URMACRERAT, UA, MG, PTH, RENAL, CBCNO, GEENA #### [address] Mean Corpuscular HGB Conc 32.6 g/dL Normal 32.0-35.0 The [facility] Comment on above: Performed By: #### V [id number], [id number], PROCRERAT, FE and TIBC, URIC, URMACRERAT, UA, MG, PTH, RENAL, CBCNO, GEENA #### [address] Platelet mean volume (Bld) [Entitic vol] 8.7 fL Normal 6.3-10.7 The [facility] Comment on above: Result Comment: PERF ORMED BY: [place] [address] PATHOLOGIST CHIEF OF STAFF DOCTOR SHANIQUE CALDERON M.D. Performed By: #### V [id number], [id number], PROCRERAT, FE and TIBC, URIC, URMACRERAT, UA, MG, PTH, RENAL, CBCNO, GEENA #### [address] Platelets (Bld) [#/Vol] 328 10*3/uL Normal 150-450 The [facility] Comment on above: Performed By: #### V [id number], [id number], PROCRERAT, FE and TIBC, URIC, URMACRERAT, UA, MG, PTH, RENAL, CBCNO, GEENA #### [address] RBC (Bld) [#/Vol] 3.83 10*6/uL Normal 3.60-5.00 The [facility] Comment on above: Performed By: #### V [id number], [id number], PROCRERAT, FE and TIBC, URIC, URMACRERAT, UA, MG, PTH, RENAL, CBCNO, GEENA #### [address] WBC (Bld) [#/Vol] 5.1 10*3/uL Normal 3.8-11.6 The [facility] Comment on above: Performed By: #### V [id number], CZSK59EC, PROCRERAT, FE and TIBC, URIC, URMACRERAT, UA, MG, PTH, RENAL, CBCNO, GEENA #### [facility] [address] Iron and TIBC Profileon 02-15 % Iron Saturation 30.1 % Normal 20-50 The [facility] Comment on above: Performed By: #### V [id number], QIVR85TU, PROCRERAT, FE and TIBC, URIC, URMACRERAT, UA, MG, PTH, RENAL, CBCNO, GEENA #### [facility] [address] [place] [id number] [facility] Iron [Mass/Vol] 118 ug/dL Normal 50-212 The [facility] Comment on above: Performed By: #### V [id number], [id number], PROCRERAT, FE and TIBC, URIC, URMACRERAT, UA, MG, PTH, RENAL, CBCNO, GEENA #### [facility] [address] Total Iron Binding Capacity 392 ug/dL Normal 255-450 The [facility] Comment on above: Performed By: #### V [id number], YGIS38WG, PROCRERAT, FE and TIBC, URIC, URMACRERAT, UA, MG, PTH, RENAL, CBCNO, GEENA #### [facility] [address] [place] [id number] [facility] Transferrin [Mass/Vol] 280 mg/dL Normal 203-362 Th e [facility] Comment on above: Performed By: #### V [id number], [id number], PROCRERAT, FE and TIBC, URIC, URMACRERAT, UA, MG, PTH, RENAL, CBCNO, GEENA #### [facility] [address] [place] [id number] [facility] Magnesiumon 03-11-2024 Magnesium [Mass/Vol] 1.9 mg/dL Normal 1.9-2.7 The [facility] Comment on above: Performed By: #### V [id number], [id number], PROCRERAT, FE and TIBC, URIC, URMACRERAT, UA, MG, PTH, RENAL, CBCNO, GEENA #### [address] MicroAlb Creat Ratio,Uon Albumin DL <= 20 mg/L (U) [Mass/Vol] mg/dL Normal 0.0-1.8 The [facility] Comment on above: Performed By: #### V [id number], [id number], PROCRERAT, FE and TIBC, URIC, URMACRERAT, UA, MG, PTH, RENAL, CBCNO, GEENA #### [address] Creatinine, Urine (Random) 57.00 mg/dL Normal The [facility] Comment on above: Result Comment: No r eference range established Performed By: #### V [id number], OGJC46VQ, PROCRERAT, FE and TIBC, URIC, URMACRERAT, UA, MG, PTH, RENAL, CBCNO, GEENA #### [address] Microalbumin/Creatinin e Ratio Not performed Normal 0.0-30.0 The [facility] Comment on above: Performed By: #### V [id number], [id number], PROCRERAT, FE and TIBC, URIC, URMACRERAT, UA, MG, PTH, RENAL, CBCNO, GEENA #### [address] Parathyroid Hormone Intacton 03-11-2024 Parathyroid Hormone Intact 30.6 pg/mL Normal 12-88 The [facility] Comment on above: Result Comment: PERF ORMED BY: [place] [address] PATHOLOGIST CHIEF OF STAFF DOCTOR SHANIQUE CALDERON M.D. Performed By: #### V [id number], ZPGB95HE, PROCRERAT, FE and TIBC, URIC, URMACRERAT, UA, MG, PTH, RENAL, CBCNO, GEENA #### [address] Protein Creat Ratio Ur [place] mon 03-11-2024 Protein (U) [Mass/Vol] 5 mg/dL Normal 0-9 Th e [facility] Comment on above: Performed By: #### V [id number], MHAQ47VS, PROCRERAT, FE and TIBC, URIC, URMACRERAT, UA, MG, PTH, RENAL, CBCNO, GEENA #### [address] Urine Protein/Creatinine Ratio 88 mg/g{Cre} Normal 0-200 The [facility] Comment on above: Result Comment: PERF ORMED BY: [place] [address] PATHOLOGIST CHIEF OF STAFF DOCTOR SHANIQUE CALDERON M.D. Performed By: #### V [id number], QKBR20TE, PROCRERAT, FE and TIBC, URIC, URMACRERAT, UA, MG, PTH, RENAL, CBCNO, GEENA #### [address] Renal Function Panelon 03-11 Albumin [Mass/Vol] 3.9 g/dL Normal 3.5-5.7 The [facility] Comment on above: Performed By: #### V [id number], [id number], PROCRERAT, FE and TIBC, URIC, URMACRERAT, UA, MG, PTH, RENAL, CBCNO, GEENA #### [address] Anion gap [Moles/Vol] 12.5 mmol/L Normal 6.0-15.0 e [facility] Comment on above: Performed By: #### V [id number], [id number], PROCRERAT, FE and TIBC, URIC, URMACRERAT, UA, MG, PTH, RENAL, CBCNO, GEENA #### [address] Calcium [Mass/Vol] 9.4 mg/dL Normal 8.6-10.3 The [facility] Comment on above: Performed By: #### V [id number], OLYM93ON, PROCRERAT, FE and TIBC, URIC, URMACRERAT, UA, MG, PTH, RENAL, CBCNO, GEENA #### [address] Chloride [Moles/Vol] 110 mmol/L High 98-107 The [facility] Comment on above: Performed By: #### V NZF24NNZ, EIPZ94XS, PROCRERAT, FE and TIBC, URIC, URMACRERAT, UA, MG, PTH, RENAL, CBCNO, GEENA #### [address] CO2 [Moles/Vol] 25.0 mmol/L Normal 21.0-31.0 The [facility] Comment on above: Performed By: #### V [id number], XLUI35DQ, PROCRERAT, FE and TIBC, URIC, URMACRERAT, UA, MG, PTH, RENAL, CBCNO, GEENA #### [address] Creatinine [Mass/Vol] 1.50 mg/dL High 0.60-1.20 The [facility] Comment on above: Performed By: #### V [id number], [id number], PROCRERAT, FE and TIBC, URIC, URMACRERAT, UA, MG, PTH, RENAL, CBCNO, GEENA #### [address] Estimated GFR 41.412 mL/Min Normal The [facility] Comment on above: Performed By: #### V JCW25PJJ, UTPB90IV, PROCRERAT, FE and TIBC, URIC, URMACRERAT, UA, MG, PTH, RENAL, CBCNO, GEENA #### [address] Glucose [Mass/Vol] 88 mg/dL Normal 70-100 The [facility] Comment on above: Result Comment: [facility] Glucose Reference Range is dependent on time and content of last meal. Glucose of more than 200 mg/dL in a nonstressed, ambulatory subject supports the diagnosis of Diabetes Mellitus. ADA recommended reference range Performed By: #### V [id number], EYGP27ZO, PROCRERAT, FE and TIBC, URIC, URMACRERAT, UA, MG, PTH, RENAL, CBCNO, GEENA #### [address] Phosphate [Mass/Vol] 2.7 mg/dL Normal 2.5-4.5 The [facility] Comment on above: Performed By: #### V [id number], VGCB87IE, PROCRERAT, FE and TIBC, URIC, URMACRERAT, UA, MG, PTH, RENAL, CBCNO, GEENA #### [address] Potassium [Moles/Vol] 4.5 mmol/L Normal 3.5-5.1 The [facility] Comment on above: Performed By: #### V [id number], GGVW16AG, PROCRERAT, FE and TIBC, URIC, URMACRERAT, UA, MG, PTH, RENAL, CBCNO, GEENA #### [address] Sodium [Moles/Vol] 143 mmol/L Normal 136-145 The [facility] Comment on above: Performed By: #### V [id number], LTLB17TO, PROCRERAT, FE and TIBC, URIC, URMACRERAT, UA, MG, PTH, RENAL, CBCNO, GEENA #### [address] Urea nitrogen [Mass/Vol] 18 mg/dL Normal 7-25 The [facility] Comment on above: Performed By: #### V OOP41RGK, GCYR37JP, PROCRERAT, FE and TIBC, URIC, URMACRERAT, UA, MG, PTH, RENAL, CBCNO, GEENA #### [address] Uric Acidon 03-11-2024 Urate [Mass/Vol] 6.3 mg/dL Normal 2.3-6.6 The [facility] Comment on above: Performed By: #### V SYP28XHS, NAGM35TR, PROCRERAT, FE and TIBC, URIC, URMACRERAT, UA, MG, PTH, RENAL, CBCNO, GEENA #### [address] Urinalysison 03-11-2024 Appearance (U) Clear Normal Clear The [facility] Comment on above: Order Comment: Name Collection Type:: Clean-Voided Midstream Performed By: #### V CSL68GOR, LKCA85WG, PROCRERAT, FE and TIBC, URIC, URMACRERAT, UA, MG, PTH, RENAL, CBCNO, GEENA #### [address] Bilirubin,Urine Negative Normal Negative The [facility] Comment on above: Order Comment: Name Collection Type:: Clean-Voided Midstream Performed By: #### V YIZ23MXI, ANKK84LJ, PROCRERAT, FE and TIBC, URIC, URMACRERAT, UA, MG, PTH, RENAL, CBCNO, GEENA #### [address] Color (U) Light-Yellow Normal Yellow The [facility] Comment on above: Order Comment: Name Collection Type:: Clean-Voided Midstream Performed By: #### V ESS54ESS, EQZN04YI, PROCRERAT, FE and TIBC, URIC, URMACRERAT, UA, MG, PTH, RENAL, CBCNO, GEENA #### [address] Glucose Ql (U) Normal Normal Normal [facility] Comment on above: Order Comment: Name Collection Type:: Clean-Voided Midstream Performed By: #### V IHQ06TUT, VTWH20XC, PROCRERAT, FE and TIBC, URIC, URMACRERAT, UA, MG, PTH, RENAL, CBCNO, GEENA #### [address] Ketones Ql (U) Negative Normal Negative [facility] Comment on above: Order Comment: Name Collection Type:: Clean-Voided Midstream Performed By: #### V [id number], IFZZ77BS, PROCRERAT, FE and TIBC, URIC, URMACRERAT, UA, MG, PTH, RENAL, CBCNO, GEENA #### [address] Leukocyte esterase Test strip Ql (U) Negative Normal Negative The [facility] Comment on above: Order Comment: Name Collection Type:: Clean-Voided Midstream Performed By: #### V [id number], QROF35GI, PROCRERAT, FE and TIBC, URIC, URMACRERAT, UA, MG, PTH, RENAL, CBCNO, GEENA #### [address] Nitrite,Urine Negative Normal Negative The [facility] Comment on above: Order Comment: Name Collection Type:: Clean-Voided Midstream Performed By: #### V ITU69OVQ, PVEH78MG, PROCRERAT, FE and TIBC, URIC, URMACRERAT, UA, MG, PTH, RENAL, CBCNO, GEENA #### [address] Occult Blood,Urine Negative Normal Negative The [facility] Comment on above: Order Comment: Name Collection Type:: Clean-Voided Midstream Result Comment: PERF ORMED BY: [place] [address] PATHOLOGIST CHIEF OF STAFF DOCTOR SHANIQUE CALDERON M.D. Performed By: #### V [id number], [id number], PROCRERAT, FE and TIBC, URIC, URMACRERAT, UA, MG, PTH, RENAL, CBCNO, GEENA #### [address] pH (U) 5.5 [pH] Normal 5.0-9.0 The [facility] Comment on above: Order Comment: Name Collection Type:: Clean-Voided Midstream Performed By: #### V [id number], [id number], PROCRERAT, FE and TIBC, URIC, URMACRERAT, UA, MG, PTH, RENAL, CBCNO, GEENA #### [address] Protein,Urine Negative Normal Negative The [facility] Comment on above: Order Comment: Name Collection Type:: Clean-Voided Midstream Performed By: #### V [id number], VYRW40RP, PROCRERAT, FE and TIBC, URIC, URMACRERAT, UA, MG, PTH, RENAL, CBCNO, GEENA #### [address] Specificy [place],Urine 1.011 Normal 1.001-1.030 [facility] Comment on above: Order Comment: Name Collection Type:: Clean-Voided Midstream Performed By: #### V JQQ41CTZ, ZFXM76NX, PROCRERAT, FE and TIBC, URIC, URMACRERAT, UA, MG, PTH, RENAL, CBCNO, GEENA #### [address] Urobilinogen,Urine Normal Normal Normal [facility] Comment on above: Order Comment: Name Collection Type:: Clean-Voided Midstream Performed By: #### V INE31FVX, FFUK69DX, PROCRERAT, FE and TIBC, URIC, URMACRERAT, UA, MG, PTH, RENAL, CBCNO, GEENA #### [address] Vit. B12/Folate Profileon Cobalamin (Vitamin B12) [Mass/Vol] 4548 pg/mL High 180-914 [facility] Comment on above: Performed By: #### V [id number], [id number], PROCRERAT, FE and TIBC, URIC, URMACRERAT, UA, MG, PTH, RENAL, CBCNO, GEENA #### [address] Folate 8.2 ng/mL Normal >5.9 The [facility] Comment on above: Result Comment: Maria te reference range: >5.9 ng/ml The WHO technical consultation on folate and vitamin b12 deficiencies has determined that folate concentrations less than 4 ng/ml are considered deficient. Performed By: #### V [id number], BDQW10AN, PROCRERAT, FE and TIBC, URIC, URMACRERAT, UA, MG, PTH, RENAL, CBCNO, GEENA #### [facility] [address] [place] [id number] [facility] Vitamin D 25 Hydroxy Totalon 03-11-2024 Vitamin D 25 Hydroxy Total 25.0 ng/mL Low 30-100 [facility] Comment on above: Result Comment: AWAIS MIN D STATUS 25(OH)VITAMIN D RANGE (ng/mL) Deficient <20 Insufficient 20 to <30 Sufficient 30 to 100 Reference: Karen MF,Nicole NC, Ed LI, et al. Evaluation,treatment, and prevention of vitamin D deficiency; an Endocrine Society clinical practice guideline. JCEM. 2010; 96(7):1911-30. PERFORMED BY: [place] [address] PATHOLOGIST CHIEF OF STAFF DOCTOR SHANIQUE CALDERON M.D. Performed By: #### V [id number], [id number], PROCRERAT, FE and TIBC, URIC, URMACRERAT, UA, MG, PTH, RENAL, CBCNO, GEENA #### [place] [id number] [facility] HbA1c (Bld) [Mass fraction]o n 02-19-2024 Interpretation and review of laboratory results Normal [facility] - Hematology and Cell countson 02-19-2024 HbA1c (Bld) [Mass fraction] 5.1 % [facility] ALL CBC WITH AUTO DIFFon BASOPHILS ABSOLUTE AUTO 0.1 [facility] Basophils/100 WBC (Bld) 0.6 % 0.2 - 2.0 % [facility] Eosinophils/100 WBC (Bld) 1.4 % 0.9 - 7.0 % [facility] Erythrocyte distribution width (RBC) [Ratio] 14.1 % 11.0 - 15.0 % [facility] Hematocrit (Bld) [Volume fraction] 40.0 % 36.0 - 48.0 % [facility] Hemoglobin (Bld) [Mass/Vol] 12.4 g/dL 12.0 - 16.0 g/dL [facility] IMMATURE GRANULOCYTES ABS AUTO 0.03 [facility] Immature granulocytes/100 WBC (Bld) 0.4 % 0.0 - 0.5 % [facility] LYMPHOCYTES ABSOLUTE AUTO 1.9 [facility] Lymphocytes/100 WBC (Bld) 24.7 % 20.5 - 60.0 % [facility] MCH (RBC) [Entitic mass] 28.4 pg 26.7 - 34.0 pg [facility] MCHC (RBC) [Mass/Vol] 31.0 g/dL 29.9 - 35.2 g/dL [facility] MCV (RBC) [Entitic vol] 91.5 fL 81.0 - 99.0 fL [facility] MONOCYTES ABSOLUTE AUTO 0.4 [facility] Monocytes/100 WBC (Bld) 4.6 % 1.7 - 12.0 % [facility] NEUTROPHILS ABSOLUTE AUTO 5.3 [facility] Neutrophils/100 WBC (Bld) 68.3 % 43.0 - 75.0 % [facility] Platelet mean volume (Bld) [Entitic vol] 11.1 fL 9.5 - 13.5 fL [facility] TBH EO # 0.1 [facility] PLT 261 [facility] RBC 4.37 [facility] WBC 7.8 [facility] Healthcare Office Visiton 12-18-2023 Follow-up visit [id number] Nithin Humphreys 1970 F Date Provider Department Center 12/18/2023 [facility] No family history on file Level of Service:11474 [place] OFFICE/OUTPATIENT ESTABLISHED LOW MDM 20 MIN Normal [facility] Glucose Glucometer (BldC) [M ass/Vol]Ordered By: Ban Clemente on 11-01-2023 Glucose [Mass/Vol] 107 mg/dL [facility] Comment on above: Random Glucose Refer ence Range is dependent on time and content of last meal. Glucose of more than 200 mg/dL in a nonstressed, ambulatory subject supports the diagnosis of Diabetes Mellitus. No Panel InformationOrdered By: Ban Clemente on 11-01-2023 Bedside Glucose Comment Glu2: cleaned meter [facility] Calcium [Mass/volume] in Ser um or PlasmaOrdered By: Fernando Rosenberg on 10-11-2023 Calcium [Mass/Vol] 9.7 mg/dL 8.6-10.3 [facility] Carbon dioxide, total [Moles /volume] in Serum or PlasmaOrdered By: Fernando Rosenberg on 10-11-2023 CO2 [Moles/Vol] 26.7 mmol/L 21.0-31.0 [facility] Chloride [Moles/volume] in S brunilda or PlasmaOrdered By: Fernando Rosenberg on 10-11-2023 Chloride [Moles/Vol] 107 mmol/L 98-107 [facility] Creatinine [Mass/volume] in Serum or PlasmaOrdered By: Fernando Rosenberg on 10-11-2023 Creatinine [Mass/Vol] 2.04 mg/dL High 0.60-1.20 [facility] Glucose [Mass/volume] in Ser um or PlasmaOrdered By: Fernando Rosenberg on 10-11-2023 Glucose [Mass/Vol] 96 mg/dL 70-100 [facility] Comment on above: ADA recommended refe rence rangeRandom Glucose Reference Range is dependent on time and content of last meal. Glucose of more than 200 mg/dL in a nonstressed, ambulatory subject supports the diagnosis of Diabetes Mellitus. No Panel InformationOrdered By: Fernando Rosenberg on 10-11-2023 Estimated GFR (CKD-EPI) 28.812 mL/Min [facility] Creatinine Clearance (Chem N/A [facility] Potassium [Moles/volume] in Serum or PlasmaOrdered By: Fernando Rosenberg on 10-11-2023 Potassium [Moles/Vol] 5.2 mmol/L High 3.5-5.1 [facility] Serum or plasma anion gap de terminationOrdered By: Fernando Rosenberg on 10-11-2023 Anion gap [Moles/Vol] 11.5 mmol/L 6.0-15.0 [facility] Sodium [Moles/volume] in Ser um or PlasmaOrdered By: Fernando Rosenberg on 10-11-2023 Sodium [Moles/Vol] 140 mmol/L 136-145 [facility] Urea nitrogen [Mass/volume] in Serum or PlasmaOrdered By: Fernando Rosenberg on 10-11-2023 Urea nitrogen [Mass/Vol] 41 mg/dL High 7-25 [facility] Basophils Auto (Bld) [#/Vol] Ordered By: Fernando Rosenberg on 10-02-2023 Basophils (Bld) [#/Vol] 0.0 10*3/uL 0.0-0.2 [facility] Basophils/100 WBC Auto (Bld) Ordered By: Fernando Rosenberg on 10-02-2023 Basophils/100 WBC (Bld) 0.8 % . [facility] Calcium [Mass/volume] in Ser um or PlasmaOrdered By: Fernando Rosenberg on 10-02-2023 Calcium [Mass/Vol] 9.0 mg/dL 8.6-10.3 [facility] Carbon dioxide, total [Moles /volume] in Serum or PlasmaOrdered By: Fernando Rosenberg on 10-02-2023 CO2 [Moles/Vol] 26.9 mmol/L 21.0-31.0 [facility] Chloride [Moles/volume] in S brunilda or PlasmaOrdered By: Fernando Rosenberg on 10-02-2023 Chloride [Moles/Vol] 110 mmol/L High 98-107 [facility] Creatinine [Mass/volume] in Serum or PlasmaOrdered By: Fernando Rosenberg on 10-02-2023 Creatinine [Mass/Vol] 1.52 mg/dL High 0.60-1.20 [facility] Comment on above: Delta: 2.27 on 09/30-0758 Eosinophils Auto (Bld) [#/Vo l]Ordered By: Fernando Rosenberg on 10-02-2023 Eosinophils (Bld) [#/Vol] 0.2 10*3/uL 0.0-0.45 [facility] Eosinophils/100 WBC Auto (Bl d)Ordered By: Fernando Rosenberg on 10-02-2023 Eosinophils/100 WBC (Bld) 3.4 % . [facility] Erythrocyte distribution wid th Auto (RBC) [Ratio]Ordered By: Fernando Rosenberg on 10-02-2023 Erythrocyte distribution width (RBC) [Ratio] 14.3 % 11.9-15.3 [facility] Glucose Glucometer (BldC) [M ass/Vol]Ordered By: Fernando Rosenberg on 10-02-2023 Glucose [Mass/Vol] 93 mg/dL [facility] Comment on above: Random Glucose Refer ence Range is dependent on time and content of last meal. Glucose of more than 200 mg/dL in a nonstressed, ambulatory subject supports the diagnosis of Diabetes Mellitus. Glucose [Mass/volume] in Ser um or PlasmaOrdered By: Fernando Rosenberg on 10-02-2023 Glucose [Mass/Vol] 85 mg/dL 70-100 [facility] Comment on above: ADA recommended refe rence rangeRandom Glucose Reference Range is dependent on time and content of last meal. Glucose of more than 200 mg/dL in a nonstressed, ambulatory subject supports the diagnosis of Diabetes Mellitus. Hematocrit Auto (Bld) [Volum e fraction]Ordered By: Fernando Rosenberg on 10-02-2023 Hematocrit (Bld) [Volume fraction] 31.5 % Low 34.0-46.4 [facility] Hemoglobin [Mass/volume] in BloodOrdered By: Fernando Rosenberg on 10-02-2023 Hemoglobin (Bld) [Mass/Vol] 10.4 g/dL Low 11.8-15.4 [facility] Leukocytes [#/volume] correc joaquin for nucleated erythrocytes in Blood by Automated counOrdered By: Fernando Rosenberg on 10-02-2023 WBC corrected for nucl RBC Auto (Bld) [#/Vol] 4.8 10*3/uL 3.8-11.6 [facility] Lymphocytes Auto (Bld) [#/Vo l]Ordered By: Fernando Rosenberg on 10-02-2023 Lymphocytes (Bld) [#/Vol] 2.1 10*3/uL 1.00-4.8 [facility] Lymphocytes/100 WBC Auto (Bl d)Ordered By: Fernando Rosenberg on 10-02-2023 Lymphocytes/100 WBC (Bld) 43.2 % . [facility] MCH Auto (RBC) [Entitic mass ]Ordered By: Fernando Rosenberg on 10-02-2023 MCH (RBC) [Entitic mass] 30.1 pg 24.7-34.3 [facility] MCHC Auto (RBC) [Mass/Vol]Or dered By: Fernando Rosenberg on 10-02-2023 MCHC (RBC) [Mass/Vol] 33.2 g/dL 32.0-35.0 [facility] MCV Auto (RBC) [Entitic vol] Ordered By: Fernando Rosenberg on 10-02-2023 MCV (RBC) [Entitic vol] 90.7 fL 80-100 [facility] Monocytes Auto (Bld) [#/Vol] Ordered By: Fernando Rosenberg on 10-02-2023 Monocytes (Bld) [#/Vol] 0.3 10*3/uL 0.0-0.8 [facility] Monocytes/100 WBC Auto (Bld) Ordered By: Fernando Rosenberg on 10-02-2023 Monocytes/100 WBC (Bld) 6.4 % . [facility] Neutrophils Auto (Bld) [#/Vo l]Ordered By: Fernando Rosenberg on 10-02-2023 Neutrophils (Bld) [#/Vol] 2.2 10*3/uL 1.8-7.7 [facility] Neutrophils/100 WBC Auto (Bl d)Ordered By: Fernando Rosenberg on 10-02-2023 Neutrophils/100 WBC (Bld) 46.2 % . [facility] No Panel InformationOrdered By: Fernando Rosenberg on 10-02-2023 Estimated GFR (CKD-EPI) 41.013 mL/Min [facility] Creatinine Clearance (Chem 60.65 [facility] Nucleated erythrocytes [Pres ence] in Blood by Automated countOrdered By: Fernando Rosenberg on 10-02-2023 Nucleated RBC Auto Ql (Bld) 0.0 /100{WBC} 0-0.5 [facility] Platelet mean volume Auto (B ld) [Entitic vol]Ordered By: Fernando Rosenberg on 10-02-2023 Platelet mean volume (Bld) [Entitic vol] 9.2 fL 6.3-10.7 [facility] Platelets Auto (Bld) [#/Vol] Ordered By: Fernando Rosenberg on 10-02-2023 Platelets (Bld) [#/Vol] 230 10*3/uL 150-450 [facility] Potassium [Moles/volume] in Serum or PlasmaOrdered By: Fernando Rosenberg on 10-02-2023 Potassium [Moles/Vol] 4.5 mmol/L 3.5-5.1 [facility] RBC Auto (Bld) [#/Vol]Ordere d By: Fernando Rosenberg on 10-02-2023 RBC (Bld) [#/Vol] 3.47 10*6/uL Low 3.60-5.00 [facility] Serum or plasma anion gap de terminationOrdered By: Fernando Rosenberg on 10-02-2023 Anion gap [Moles/Vol] 9.6 mmol/L 6.0-15.0 [facility] Sodium [Moles/volume] in Ser um or PlasmaOrdered By: Fernando Rosenberg on 10-02-2023 Sodium [Moles/Vol] 142 mmol/L 136-145 [facility] Urea nitrogen [Mass/volume] in Serum or PlasmaOrdered By: Fernando Rosenberg on 10-02-2023 Urea nitrogen [Mass/Vol] 34 mg/dL High 7-25 [facility] WBC Auto (Bld) [#/Vol]Ordere d By: Fernando Rosenberg on 10-02-2023 WBC (Bld) [#/Vol] 4.8 10*3/uL 3.8-11.6 [facility] Activated partial thrombopla stin time (aPTT) in platelet poor plasma by coagulation aOrdered By: Alma Deng on 10-01-2023 aPTT Coag (PPP) [Time] 30.1 s 25.1-36.5 [facility] Comment on above: A hematocrit value g reater than 55% may lead to inaccurate results in coagulation testing. Patients having hematocrit values >55% require a special collection tube for coagulation studies. Please contact the laboratory at [phone] for redraw instructions. Alanine aminotransferase [En zymatic activity/volume] in Serum or PlasmaOrdered By: Alma Deng on 10-01-2023 ALT [Catalytic activity/Vol] 19 U/L 7-52 [facility] Albumin [Mass/volume] in Ser um or Plasma by Bromocresol green (BCG) dye binding methoOrdered By: Alma Deng on 10-01-2023 Albumin BCG dye [Mass/Vol] 3.9 g/dL 3.5-5.7 [facility] Alkaline phosphatase [Enzyma tic activity/volume] in Serum or PlasmaOrdered By: Alma Deng on 10-01-2023 ALP [Catalytic activity/Vol] 56 U/L 34-104 [facility] Aspartate aminotransferase [ Enzymatic activity/volume] in Serum or PlasmaOrdered By: Alma Deng on 10-01-2023 AST [Catalytic activity/Vol] 29 U/L 13-39 [facility] Bacteria [Presence] in Urine by AutomatedOrdered By: Alma Deng on 10-01-2023 Bacteria Auto Ql (U) None seen [HPF] None Seen [facility] Bilirubin Test strip Ql (U)O rdered By: Alma Deng on 10-01-2023 Bilirubin Ql (U) Negative Negative [facility] Bilirubin.total [Mass/volume ] in Serum or PlasmaOrdered By: Alma Deng on 10-01-2023 Bilirubin [Mass/Vol] 0.3 mg/dL 0.3-1.0 [facility] Color Auto (U)Ordered By: Christ Deng on 10-01-2023 Color (U) Colorless Yellow [facility] Creatinine [Mass/volume] in UrineOrdered By: Alma Deng on 10-01-2023 Creatinine (U) [Mass/Vol] 65.00 mg/dL [facility] Comment on above: No reference range e stablished Eosinophils detection in uri ne sediment by Nava stainOrdered By: Alma Deng on 10-01-2023 Eosinophils Nava stain Ql (Urine sed) 0 % 0-1 [facility] Epithelial cells.squamous [# /area] in Urine sediment by Automated countOrdered By: Alma Deng on 10-01-2023 Epithelial cells.squamous Auto (Urine sed) [#/Area] N/A [facility] Erythrocytes [#/area] in Uri ne sediment by Automated countOrdered By: Alma Deng on 10-01-2023 RBC Auto (Urine sed) [#/Area] None seen [HPF] 0-4 [facility] Globulin Calc (S) [Mass/Vol] Ordered By: Alma Deng on 10-01-2023 Globulin (S) [Mass/Vol] 2.2 g/dL [facility] Glucose [Mass/volume] in Uri ne by Test stripOrdered By: Alma Deng on 10-01-2023 Glucose Test strip (U) [Mass/Vol] Normal mg/dL Normal [facility] Hemoglobin Test strip Ql (U) Ordered By: Alma Deng on 10-01-2023 Hemoglobin Ql (U) Negative Negative [facility] Hyaline casts [#/area] in Ur ine sediment by Automated countOrdered By: Alma Deng on 10-01-2023 Hyaline casts Auto (Urine sed) [#/Area] 0-8 [LPF] 0-8 [facility] INR in Platelet poor plasma by Coagulation assayOrdered By: Alma Deng on 10-01-2023 INR Coag (PPP) [Relative time] 1.1 {INR} [facility] Comment on above: INR Therapeutic Rang [...] on 10-01-2023 Ketones Ql (U) Negative Negative [facility] Leukocyte esterase [Presence ] in Urine by Test stripOrdered By: Alma Deng on 10-01-2023 Leukocyte esterase Test strip Ql (U) 1+ High Negative [facility] Leukocytes [#/area] in Urine sediment by Automated countOrdered By: Alma Deng on 10-01-2023 WBC Auto (Urine sed) [#/Area] 3-4 [HPF] 0-4 [facility] Mucus [Presence] in Urine by AutomatedOrdered By: Alma Deng on 10-01-2023 Mucus Auto Ql (U) Rare [LPF] [facility] Nitrite Test strip Ql (U)Ord ered By: Alma Deng on 10-01-2023 Nitrite Ql (U) Negative Negative [facility] No Panel InformationOrdered By: Fernando Rosenberg on 10-01-2023 Bedside Glucose Comment Glu2: cleaned meter [facility] Protein Test strip (U) [Mass /Vol]Ordered By: Alma Deng on 10-01-2023 Protein (U) [Mass/Vol] Negative Negative [facility] Protein [Mass/volume] in Ser um or PlasmaOrdered By: Alma Deng on 10-01-2023 Protein [Mass/Vol] 6.1 g/dL Low 6.4-8.9 [facility] Prothrombin time (PT)Ordered By: Alma Deng on 10-01-2023 PT Coag (PPP) [Time] 12.2 s 9.0-12.9 [facility] Comment on above: A hematocrit value g reater than 55% may lead to inaccurate results in coagulation testing. Patients having hematocrit values >55% require a special collection tube for coagulation studies. Please contact the laboratory at [phone] for redraw instructions. Serum or plasma albumin/glob ulin mass ratioOrdered By: Alma Deng on 10-01-2023 Albumin/Globulin [Mass ratio] 1.8 {ratio} [facility] Sodium [Moles/volume] in Uri neOrdered By: Alma Deng on 10-01-2023 Sodium (U) [Moles/Vol] 54.0 mmol/L [facility] Comment on above: No reference range e stablished Specific gravity Test strip (U) [Rel density]Ordered By: Alma Deng on 10-01-2023 Specific gravity (U) [Rel density] 1.009 1.001-1.030 [facility] Urine appearanceOrdered By: Alma Deng on 10-01-2023 Appearance (U) Clear Clear [facility] Urobilinogen Test strip (U) [Mass/Vol]Ordered By: Alma Deng on 10-01-2023 Urobilinogen (U) [Mass/Vol] Normal mg/dL Normal [facility] pH Test strip (U)Ordered By: Alma Deng on 10-01-2023 pH (U) 5.5 [pH] 5.0-9.0 [facility] Albumin [Mass/volume] in Ser um or Plasma by Bromocresol green (BCG) dye binding methoOrdered By: Halle Mac on 08-10-2023 Albumin BCG dye [Mass/Vol] 4.0 g/dL 3.5-5.7 [facility] Automated erythrocytes count in urine sediment (number/area)Ordered By: Halle Mac on 08-10-2023 RBC Auto (Urine sed) [#/Area] None seen [HPF] 0-4 [facility] Automated leukocytes count i n urine sediment (number/area)Ordered By: Halle Mac on 08-10-2023 WBC Auto (Urine sed) [#/Area] 3-4 [HPF] 0-4 [facility] Bilirubin Test strip Ql (U)O rdered By: Halle Mac on 08-10-2023 Bilirubin Ql (U) Negative Negative [facility] Calcium [Mass/volume] in Ser um or PlasmaOrdered By: Halle Mac on 08-10-2023 Calcium [Mass/Vol] 9.3 mg/dL 8.6-10.3 [facility] Carbon dioxide, total [Moles /volume] in Serum or PlasmaOrdered By: Halle Mac on 08-10-2023 CO2 [Moles/Vol] 24.8 mmol/L 21.0-31.0 [facility] Chloride [Moles/volume] in S brunilda or PlasmaOrdered By: Halle Mac on 08-10-2023 Chloride [Moles/Vol] 110 mmol/L High 98-107 [facility] Color Auto (U)Ordered By: Donald Mac on 08-10-2023 Color (U) Yellow Yellow [facility] Creatinine [Mass/volume] in Serum or PlasmaOrdered By: Halle Mac on 08-10-2023 Creatinine [Mass/Vol] 1.59 mg/dL High 0.60-1.20 [facility] Creatinine [Mass/volume] in UrineOrdered By: Halle Mac on 08-10-2023 Creatinine (U) [Mass/Vol] 92.0 mg/dL [facility] Comment on above: No reference range e stablished Erythrocyte distribution wid th Auto (RBC) [Ratio]Ordered By: Halle Mac on 08-10-2023 Erythrocyte distribution width (RBC) [Ratio] 15.1 % 11.9-15.3 [facility] Ferritin [Mass/volume] in Se rum or PlasmaOrdered By: Halle Mac on 08-10-2023 Ferritin [Mass/Vol] 62.9 ng/mL 11.0-306.8 [facility] Folate [Mass/volume] in Seru m or PlasmaOrdered By: Halle Mac on 08-10-2023 Folate [Mass/Vol] 15.7 ng/mL >5.9 [facility] Comment on above: Folate reference ran ge: >5.9 ng/mlThe WHO technical consultation on folate and vitamin [id number] has determined that folate concentrations lessthan 4 ng/ml are considered deficient. Glucose [Mass/volume] in Ser um or PlasmaOrdered By: Halle Mac on 08-10-2023 Glucose [Mass/Vol] 94 mg/dL 70-100 [facility] Comment on above: ADA recommended refe rence rangeRandom Glucose Reference Range is dependent on time and content of last meal. Glucose of more than 200 mg/dL in a nonstressed, ambulatory subject supports the diagnosis of Diabetes Mellitus. Hematocrit Auto (Bld) [Volum e fraction]Ordered By: Halle Mac on 08-10-2023 Hematocrit (Bld) [Volume fraction] 35.0 % 34.0-46.4 [facility] Hemoglobin [Mass/volume] in BloodOrdered By: Halle Mac on 08-10-2023 Hemoglobin (Bld) [Mass/Vol] 11.5 g/dL Low 11.8-15.4 [facility] Iron [Mass/volume] in Serum or PlasmaOrdered By: Halle Mac on 08-10-2023 Iron [Mass/Vol] 75 ug/dL 50-212 [facility] Iron binding capacity [Mass/ volume] in Serum or PlasmaOrdered By: Halle Mac on 08-10-2023 Iron binding capacity [Mass/Vol] 480 ug/dL High 255-450 [facility] Iron saturation [Mass Fracti on] in Serum or PlasmaOrdered By: Halle Mac on 08-10-2023 Iron saturation [Mass fraction] 15.6 % Low 20-50 [facility] Ketones Auto test strip (U) [Mass/Vol]Ordered By: Halle Mac on 08-10-2023 Ketones (U) [Mass/Vol] Negative Negative [facility] Laboratory - UrinalysisOrder ed By: Halle Mac on 08-10-2023 Hyaline casts LM Ql (Urine sed) None seen [LPF] 0-8 [facility] Leukocytes [#/volume] correc joaquin for nucleated erythrocytes in Blood by Automated counOrdered By: Halle Mac on 08-10-2023 WBC corrected for nucl RBC Auto (Bld) [#/Vol] 4.0 10*3/uL 3.8-11.6 [facility] MCH Auto (RBC) [Entitic mass ]Ordered By: Halle Mac on 08-10-2023 MCH (RBC) [Entitic mass] 29.6 pg 24.7-34.3 [facility] MCHC Auto (RBC) [Mass/Vol]Or dered By: Halle Mac on 08-10-2023 MCHC (RBC) [Mass/Vol] 32.9 g/dL 32.0-35.0 [facility] MCV Auto (RBC) [Entitic vol] Ordered By: Halle Mac on 08-10-2023 MCV (RBC) [Entitic vol] 90.0 fL 80-100 [facility] Magnesium [Mass/volume] in S brunilda or PlasmaOrdered By: Halle Mac on 08-10-2023 Magnesium [Mass/Vol] 1.9 mg/dL 1.9-2.7 [facility] Nitrite Test strip Ql (U)Ord ered By: Halle Mac on 08-10-2023 Nitrite Ql (U) Negative Negative [facility] No Panel InformationOrdered By: Halle Mac on 08-10-2023 Estimated GFR (CKD-EPI) 38.856 mL/Min [facility] Creatinine Clearance (Chem N/A [facility] Parathyrin.intact [Mass/volu me] in Serum or PlasmaOrdered By: Halle Mac on 08-10-2023 Parathyrin.intact [Mass/Vol] 38.7 pg/mL 12-88 [facility] Phosphate [Mass/volume] in S brunilda or PlasmaOrdered By: Halle Mac on 08-10-2023 Phosphate [Mass/Vol] 3.7 mg/dL 2.5-4.5 [facility] Platelet mean volume Auto (B ld) [Entitic vol]Ordered By: Halle Mac on 08-10-2023 Platelet mean volume (Bld) [Entitic vol] 9.8 fL 6.3-10.7 [facility] Platelets Auto (Bld) [#/Vol] Ordered By: Halle Mac on 08-10-2023 Platelets (Bld) [#/Vol] 217 10*3/uL 150-450 [facility] Potassium [Moles/volume] in Serum or PlasmaOrdered By: Halle Mac on 08-10-2023 Potassium [Moles/Vol] 4.5 mmol/L 3.5-5.1 [facility] Protein Auto test strip (U) [Mass/Vol]Ordered By: Halle Mac on 08-10-2023 Protein (U) [Mass/Vol] Negative Negative [facility] Protein [Mass/volume] in Uri neOrdered By: Halle Mac on 08-10-2023 Protein (U) [Mass/Vol] mg/dL 0-9 [facility] RBC Auto (Bld) [#/Vol]Ordere d By: Halle Mac on 08-10-2023 RBC (Bld) [#/Vol] 3.89 10*6/uL 3.60-5.00 [facility] Serum or plasma anion gap de terminationOrdered By: Halle Mca on 08-10-2023 Anion gap [Moles/Vol] 11.7 mmol/L 6.0-15.0 [facility] Sodium [Moles/volume] in Ser um or PlasmaOrdered By: Halle Mac on 08-10-2023 Sodium [Moles/Vol] 142 mmol/L 136-145 [facility] Specific gravity Auto test s trip (U) [Rel density]Ordered By: Halle Mac on 08-10-2023 Specific gravity (U) [Rel density] 1.015 1.001-1.030 [facility] Squamous epithelial cells de tection in urine sediment by light microscopyOrdered By: Halle Mac on 08-10-2023 Epithelial cells.squamous LM Ql (Urine sed) None seen [HPF] 0-2 [facility] Transferrin [Mass/volume] in Serum or PlasmaOrdered By: Halle Mac on 08-10-2023 Transferrin [Mass/Vol] 343 mg/dL 203-362 [facility] Urate [Mass/volume] in Serum or PlasmaOrdered By: Halle Mac on 08-10-2023 Urate [Mass/Vol] 8.6 mg/dL High 2.3-6.6 [facility] Urea nitrogen [Mass/volume] in Serum or PlasmaOrdered By: Halle Mac on 08-10-2023 Urea nitrogen [Mass/Vol] 32 mg/dL High 7-25 [facility] Urine bacteria detection by automated methodOrdered By: Halle Mac on 08-10-2023 Bacteria Auto Ql (U) None seen None Seen [facility] Urine clarity by refractomet ry automatedOrdered By: Halle Mac on 08-10-2023 Clarity Refractometry automated (U) Clear Clear [facility] Urine glucose measurement by automated test strip (mass/volume)Ordered By: Halle Mac on 08-10-2023 Glucose Auto test strip (U) [Mass/Vol] Normal mg/dL Normal [facility] Urine hemoglobin detection b y automated test stripOrdered By: Halle Mac on 08-10-2023 Hemoglobin Auto test strip Ql (U) Negative Negative [facility] Urine leukocyte esterase det ection by automated test stripOrdered By: Halle Mac on 08-10-2023 Leukocyte esterase Auto test strip Ql (U) 2+ High Negative [facility] Urine protein/creatinine rat ioOrdered By: Halle Mac on 08-10-2023 Protein/Creatinine (U) [Ratio] TNP [facility] Comment on above: Test not performed Urobilinogen Auto test strip (U) [Mass/Vol]Ordered By: Halle Mac on 08-10-2023 Urobilinogen (U) [Mass/Vol] Normal mg/dL Normal [facility] Vitamin B12 ser/plasOrdered By: Halle Mac on 08-10-2023 Cobalamin (Vitamin B12) [Mass/Vol] 164 pg/mL Low 180-914 [facility] Vitamin D+Metabolites [Mass/ volume] in Serum or PlasmaOrdered By: Halle Mac on 08-10-2023 Vitamin D+Metabolites [Mass/Vol] 22.4 ng/mL Low 30-100 [facility] Comment on above: VITAMIN D STATUS 25( [place])VITAMIN D RANGE (ng/mL) Deficient <20 Insufficient 20 to <30Sufficient 30 to 100Reference: Karen MF,Nicole NC, Ed LI, et al. Evaluation,treatment, and prevention of vitamin D deficiency; an Endocrine Society clinical practice guideline. JCEM. 2010; 96(7):1911-30. pH Auto test strip (U)Ordere d By: Halle Mac on 08-10-2023 pH (U) 5.5 [pH] 5.0-9.0 [facility] Valproate [Mass/volume] in S brunilda or PlasmaOrdered By: Fauzia Huffman on 06-19-2023 Valproate [Mass/Vol] 14.5 ug/mL 50.0-100.0 [facility] Comment on above: Last dose: - Alanine aminotransferase [En zymatic activity/volume] in Serum or PlasmaOrdered By: Halle Mac on 05-17-2023 ALT [Catalytic activity/Vol] 16 U/L 7-52 [facility] Albumin [Mass/volume] in Ser um or Plasma by Bromocresol green (BCG) dye binding methoOrdered By: Halle Mac on 05-17-2023 Albumin BCG dye [Mass/Vol] 4.3 g/dL 3.5-5.7 [facility] Alkaline phosphatase [Enzyma tic activity/volume] in Serum or PlasmaOrdered By: Halle Mac on 05-17-2023 ALP [Catalytic activity/Vol] 61 U/L 34-104 [facility] Aspartate aminotransferase [ Enzymatic activity/volume] in Serum or PlasmaOrdered By: Halle Mac on 05-17-2023 AST [Catalytic activity/Vol] 23 U/L 13-39 [facility] Automated erythrocytes count in urine sediment (number/area)Ordered By: Halle Mac on 05-17-2023 RBC Auto (Urine sed) [#/Area] 3-4 [HPF] 0-4 [facility] Automated leukocytes count i n urine sediment (number/area)Ordered By: Halle Mac on 05-17-2023 WBC Auto (Urine sed) [#/Area] 10-19 [HPF] 0-4 [facility] Bilirubin Test strip Ql (U)O rdered By: Halle Mac on 05-17-2023 Bilirubin Ql (U) 2+ Negative [facility] Bilirubin.total [Mass/volume ] in Serum or PlasmaOrdered By: Halle Mac on 05-17-2023 Bilirubin [Mass/Vol] 0.5 mg/dL 0.3-1.0 [facility] Calcium [Mass/volume] in Ser um or PlasmaOrdered By: Halle Mac on 05-17-2023 Calcium [Mass/Vol] 9.3 mg/dL 8.6-10.3 [facility] Carbon dioxide, total [Moles /volume] in Serum or PlasmaOrdered By: Halle Mac on 05-17-2023 CO2 [Moles/Vol] 28.0 mmol/L 21.0-31.0 [facility] Casts typing in urine sedime nt by light microscopyOrdered By: Halle Mac on 05-17-2023 Casts LM Nom (Urine sed) None seen [LPF] None Seen [facility] Chloride [Moles/volume] in S brunilda or PlasmaOrdered By: Halle Mac on 05-17-2023 Chloride [Moles/Vol] 107 mmol/L 98-107 [facility] Color Auto (U)Ordered By: Donald Mac on 05-17-2023 Color (U) Dark yellow Yellow [facility] Creatinine [Mass/volume] in Serum or PlasmaOrdered By: Halle Mac on 05-17-2023 Creatinine [Mass/Vol] 1.52 mg/dL 0.60-1.20 [facility] Creatinine [Mass/volume] in UrineOrdered By: Halle Mac on 05-17-2023 Creatinine (U) [Mass/Vol] mg/dL 11.0-20.0 [facility] Erythrocyte distribution wid th Auto (RBC) [Ratio]Ordered By: Halle Mac on 05-17-2023 Erythrocyte distribution width (RBC) [Ratio] 13.4 % 11.9-15.3 [facility] Ferritin [Mass/volume] in Se rum or PlasmaOrdered By: Halle Mac on 05-17-2023 Ferritin [Mass/Vol] 51.8 ng/mL 11.0-306.8 [facility] Fine granular cast count in urine sediment by microscopy (number/low power field )Ordered By: Halle Mac on 05-17-2023 Fine Granular Casts LM.LPF (Urine sed) [#/Area] 5-9 [LPF] 0-1 [facility] Globulin Calc (S) [Mass/Vol] Ordered By: Halle Mac on 05-17-2023 Globulin (S) [Mass/Vol] 2.3 g/dL [facility] Glucose [Mass/volume] in Ser um or PlasmaOrdered By: Halle Mac on 05-17-2023 Glucose [Mass/Vol] 123 mg/dL 70-100 [facility] Comment on above: ADA recommended refe rence rangeRandom Glucose Reference Range is dependent on time and content of last meal. Glucose of more than 200 mg/dL in a nonstressed, ambulatory subject supports the diagnosis of Diabetes Mellitus. Hematocrit Auto (Bld) [Volum e fraction]Ordered By: Halle Mac on 05-17-2023 Hematocrit (Bld) [Volume fraction] 36.1 % 34.0-46.4 [facility] Hemoglobin [Mass/volume] in BloodOrdered By: Halle Mac on 05-17-2023 Hemoglobin (Bld) [Mass/Vol] 11.8 g/dL 11.8-15.4 [facility] Iron [Mass/volume] in Serum or PlasmaOrdered By: Halle Mac on 05-17-2023 Iron [Mass/Vol] 57 ug/dL 50-212 [facility] Iron binding capacity [Mass/ volume] in Serum or PlasmaOrdered By: Halle Mac on 05-17-2023 Iron binding capacity [Mass/Vol] 538 ug/dL 255-450 [facility] Iron saturation [Mass Fracti on] in Serum or PlasmaOrdered By: Halle Mac on 05-17-2023 Iron saturation [Mass fraction] 10.6 % 20-50 [facility] Ketones Auto test strip (U) [Mass/Vol]Ordered By: Halle Mac on 05-17-2023 Ketones (U) [Mass/Vol] 1+ Negative [facility] - UrinalysisOrder ed By: Halle Mac 05-17-2023 Hyaline casts LM Ql (Urine sed) None seen [LPF] 0-8 [facility] Leukocytes [#/volume] correc joaquin for nucleated erythrocytes in Blood by Automated counOrdered By: Halle Mac on 05-17-2023 WBC corrected for nucl RBC Auto (Bld) [#/Vol] 5.5 10*3/uL 3.8-11.6 [facility] MCH Auto (RBC) [Entitic mass ]Ordered By: Halle Mac on 05-17-2023 MCH (RBC) [Entitic mass] 29.4 pg 24.7-34.3 [facility] MCHC Auto (RBC) [Mass/Vol]Or dered By: Halle Mac on 05-17-2023 MCHC (RBC) [Mass/Vol] 32.8 g/dL 32.0-35.0 [facility] MCV Auto (RBC) [Entitic vol] Ordered By: Halle Mac on 05-17-2023 MCV (RBC) [Entitic vol] 89.4 fL 80-100 [facility] Magnesium [Mass/volume] in S brunilda or PlasmaOrdered By: Halle Mac on 05-17-2023 Magnesium [Mass/Vol] 2.0 mg/dL 1.9-2.7 [facility] Mucus LM Ql (Urine sed)Order ed By: Halle Mac on 05-17-2023 Mucus Ql (Urine sed) 3+ [LPF] [facility] Nitrite Test strip Ql (U)Ord ered By: Halle Mac on 05-17-2023 Nitrite Ql (U) Negative Negative [facility] No Panel InformationOrdered By: Halle Mac on 05-17-2023 Estimated GFR (CKD-EPI) 41.013 mL/Min [facility] Creatinine Clearance (Chem N/A [facility] Parathyrin.intact [Mass/volu me] in Serum or PlasmaOrdered By: Halle Mac on 05-17-2023 Parathyrin.intact [Mass/Vol] 36.3 pg/mL 12-88 [facility] Phosphate [Mass/volume] in S brunilda or PlasmaOrdered By: Halle Mac on 05-17-2023 Phosphate [Mass/Vol] 4.4 mg/dL 2.5-4.5 [facility] Platelet mean volume Auto (B ld) [Entitic vol]Ordered By: Halle Mac on 05-17-2023 Platelet mean volume (Bld) [Entitic vol] 9.5 fL 6.3-10.7 [facility] Platelets Auto (Bld) [#/Vol] Ordered By: Halle Mac on 05-17-2023 Platelets (Bld) [#/Vol] 233 10*3/uL 150-450 [facility] Potassium [Moles/volume] in Serum or PlasmaOrdered By: Halle Mac on 05-17-2023 Potassium [Moles/Vol] 3.8 mmol/L 3.5-5.1 [facility] Protein Auto test strip (U) [Mass/Vol]Ordered By: Halle Mac on 05-17-2023 Protein (U) [Mass/Vol] 30 mg/dL Negative [facility] Protein [Mass/volume] in Ser um or PlasmaOrdered By: Halle Mac on 05-17-2023 Protein [Mass/Vol] 6.6 g/dL 6.4-8.9 [facility] Protein [Mass/volume] in Uri neOrdered By: Halle Mac on 05-17-2023 Protein (U) [Mass/Vol] 35 mg/dL 0-9 [facility] RBC Auto (Bld) [#/Vol]Ordere d By: Halle Mac on 05-17-2023 RBC (Bld) [#/Vol] 4.03 10*6/uL 3.60-5.00 [facility] Serum or plasma albumin/glob ulin mass ratioOrdered By: Halle Mac on 05-17-2023 Albumin/Globulin [Mass ratio] 1.9 {ratio} [facility] Serum or plasma anion gap de terminationOrdered By: Halle Mac on 05-17-2023 Anion gap [Moles/Vol] 10.8 mmol/L 6.0-15.0 [facility] Sodium [Moles/volume] in Ser um or PlasmaOrdered By: Halle Mac on 05-17-2023 Sodium [Moles/Vol] 142 mmol/L 136-145 [facility] Specific gravity Auto test s trip (U) [Rel density]Ordered By: Halle Mac on 05-17-2023 Specific gravity (U) [Rel density] 1.025 1.001-1.030 [facility] Squamous epithelial cells de tection in urine sediment by light microscopyOrdered By: Halle Mac on 05-17-2023 Epithelial cells.squamous LM Ql (Urine sed) 3-4 [HPF] 0-2 [facility] Transferrin [Mass/volume] in Serum or PlasmaOrdered By: Halle Mac on 05-17-2023 Transferrin [Mass/Vol] 384 mg/dL 203-362 [facility] Urate [Mass/volume] in Serum or PlasmaOrdered By: Halle Mac on 05-17-2023 Urate [Mass/Vol] 7.3 mg/dL 2.3-6.6 [facility] Urea nitrogen [Mass/volume] in Serum or PlasmaOrdered By: Halle Mac on 05-17-2023 Urea nitrogen [Mass/Vol] 26 mg/dL 7-25 [facility] Urine bacteria detection by automated methodOrdered By: Halle Mac on 05-17-2023 Bacteria Auto Ql (U) None seen None Seen [facility] Urine clarity by refractomet ry automatedOrdered By: Halle Mac on 05-17-2023 Clarity Refractometry automated (U) Cloudy Clear [facility] Urine culture routineOrdered By: Halle Mac on 05-17-2023 Bacteria identified Cx Nom (U) 2 Days [facility] Urine glucose measurement by automated test strip (mass/volume)Ordered By: Halle Mac on 05-17-2023 Glucose Auto test strip (U) [Mass/Vol] Normal mg/dL Normal [facility] Urine hemoglobin detection b y automated test stripOrdered By: Halle Mac on 05-17-2023 Hemoglobin Auto test strip Ql (U) Negative Negative [facility] Urine leukocyte esterase det ection by automated test stripOrdered By: Halle Mac on 05-17-2023 Leukocyte esterase Auto test strip Ql (U) 1+ Negative [facility] Urine protein/creatinine rat ioOrdered By: Halle Mac on 05-17-2023 Protein/Creatinine (U) [Ratio] TNP [facility] Comment on above: Test not performed Urobilinogen Auto test strip (U) [Mass/Vol]Ordered By: Halle Mac on 05-17-2023 Urobilinogen (U) [Mass/Vol] Normal mg/dL Normal [facility] Valproate [Mass/volume] in S brunilda or PlasmaOrdered By: Fauzia Huffman on 05-17-2023 Valproate [Mass/Vol] 24.0 ug/mL 50.0-100.0 [facility] Comment on above: Last dose: - Vitamin D+Metabolites [Mass/ volume] in Serum or PlasmaOrdered By: Halle Mac on 05-17-2023 Vitamin D+Metabolites [Mass/Vol] 24.3 ng/mL 30-100 [facility] Comment on above: VITAMIN D STATUS [...] (Urine sed) None seen [HPF] None Seen [facility] pH Auto test strip (U)Ordere d By: Halle Mac on 05-17-2023 pH (U) 5.0 [pH] 5.0-9.0 [facility] Provider Orderson 05-09-2023 Provider Orders [id number] Normal [facility] BNPon 09-07-2022 Natriuretic peptide B (Bld) [Mass/Vol] 391.0 pg/mL Normal <=900.0 [facility] Comment on above: Performed By: #### L IPID, BMP #### [facility] [address] [place] [address] Dr. Jag Waldrop CBC AUTO DIFFon 09-07-2022 BASO # 0.1 103/ul Normal 0.0-0.1 [facility] Comment on above: Performed By: #### L IPID, BMP #### [facility] [address] [place] [address] Dr. Jag Waldrop Basophils/100 WBC (Bld) 1.4 % Normal 0.2-2.0 [facility] Comment on above: Performed By: #### L IPID, BMP #### [facility] [address] [place] [address] Dr. Jag Waldrop EO # 0.1 103/ul Normal 0.0-0.7 [facility] Comment on above: Performed By: #### L IPID, BMP #### [facility] [address] [place] [address] Dr. Jag Waldrop Eosinophils/100 WBC (Bld) 1.6 % Normal 0.9-7.0 [facility] Comment on above: Performed By: #### L IPID, BMP #### [facility] [address] [place] [address] Dr. Jag Waldrop Erythrocyte distribution width (RBC) [Ratio] 15.0 % Normal 11.0-15.0 [facility] Comment on above: Performed By: #### L IPID, BMP #### [facility] [address] [place] [address] Dr. Jag Waldrop Hematocrit (Bld) [Volume fraction] 37.2 % Normal 36.0-48.0 [facility] Comment on above: Performed By: #### L IPID, BMP #### [facility] [address] [place] [address] Dr. Jag Waldrop Hemoglobin (Bld) [Mass/Vol] 11.6 g/dL Critically low 12.0-16.0 [facility] Comment on above: Performed By: #### L IPID, BMP #### [facility] [address] [place] [address] Dr. Jag Waldrop IG # 0.01 10e3/ul Normal 0.00-0.03 [facility] Comment on above: Performed By: #### L IPID, BMP #### [facility] [address] [place] [address] Dr. Jag Waldrop IG % 0.2 % Normal 0.0-0.5 [facility] Comment on above: Performed By: #### L IPID, BMP #### [facility] [address] [place] [address] Dr. Jag Waldrop LYMPH # 1.9 103/ul Normal 1.2-3.8 [facility] Comment on above: Performed By: #### L IPID, BMP #### [facility] [address] [place] [address] Dr. Jag Waldrop Lymphocytes/100 WBC (Bld) 39.1 % Normal 20.5-60.0 [facility] Comment on above: Performed By: #### L IPID, BMP #### [facility] [address] [place] [address] Dr. Jag Waldrop MANUAL DIFF REQ NO Normal [facility] Comment on above: Performed By: #### L IPID, BMP #### [facility] [address] [place] [address] Dr. Jag Waldrop MCH (RBC) [Entitic mass] 27.5 pg Normal 26.7-34.0 [facility] Comment on above: Performed By: #### L IPID, BMP #### [facility] [address] [place] [address] Dr. Jag Waldrop MCHC (RBC) [Mass/Vol] 31.2 g/dL Normal 29.9-35.2 [facility] Comment on above: Performed By: #### L IPID, BMP #### [facility] [address] [place] [address] Dr. Jag Waldrop MCV (RBC) [Entitic vol] 88.2 fL Normal 81.0-99.0 [facility] Comment on above: Performed By: #### L IPID, BMP #### [facility] [address] [place] [address] Dr. Jag Waldrop MONO # 0.3 103/ul Normal 0.3-0.8 [facility] Comment on above: Performed By: #### L IPID, BMP #### [facility] [address] [place] [address] Dr. Jag Waldrop Monocytes/100 WBC (Bld) 6.5 % Normal 1.7-12.0 [facility] Comment on above: Performed By: #### L IPID, BMP #### [facility] [address] [place] [address] Dr. Jag Waldrop NEUT # 2.5 103/ul Normal 1.4-6.5 [facility] Comment on above: Performed By: #### L IPID, BMP #### [facility] [address] [place] [address] Dr. Jag Waldrop Neutrophils/100 WBC (Bld) 51.2 % Normal 43.0-75.0 [facility] Comment on above: Performed By: #### L IPID, BMP #### [facility] [address] [place] [address] Dr. Jag Waldrop Platelet mean volume (Bld) [Entitic vol] 10.5 fL Normal 9.5-13.5 [facility] Comment on above: Performed By: #### L IPID, BMP #### [facility] [address] [place] [address] Dr. Jag Waldrop PLT 272 103/ul Normal 150-450 [facility] Comment on above: Performed By: #### L IPID, BMP #### [facility] [address] [place] [address] Dr. Jag Waldrop RBC 4.22 106/ul Normal 4.20-5.40 [facility] Comment on above: Performed By: #### L IPID, BMP #### [facility] [address] [place] [address] Dr. Jag Waldrop WBC 4.9 103/ul Normal 4.0-11.0 [facility] Comment on above: Performed By: #### L IPID, BMP #### [facility] [address] [place] [address] Dr. Jag Waldrop ER URINE PROFILEon 3 Bilirubin Ql (U) Negative Normal NEGATIVE [facility] Comment on above: Performed By: #### E RUR #### [facility] [address] [place] [address] Dr. Jag Waldrop Clarity (U) CLEAR Normal CLEAR [facility] Comment on above: Performed By: #### E RUR #### [facility] [address] [place] [address] Dr. Jag Waldrop Color (U) LT. YELLOW Normal YELLOW [facility] Comment on above: Performed By: #### E RUR #### [facility] [address] [place] [address] Dr. Jag SOWAHTabitha A micrscopic examina tion will be performed if indicated. Normal [facility] Comment on above: Performed By: #### E RUR #### [facility] [address] [place] [address] Dr. Jag Waldrop Glucose Ql (U) Negative Normal NEGATIVE [facility] Comment on above: Performed By: #### E RUR #### [facility] [address] [place] [address] Dr. Jag Waldrop Hemoglobin Ql (U) Negative Normal NEGATIVE [facility] Comment on above: Performed By: #### E RUR #### [facility] [address] [place] [address] Dr. Jag Waldrop Ketones Ql (U) Negative Normal NEGATIVE [facility] Comment on above: Performed By: #### E RUR #### [facility] [address] [place] [address] Dr. Jag Waldrop LEUKOCYTES Negative Normal NEGATIVE [facility] Comment on above: Performed By: #### E RUR #### [facility] [address] [place] [address] Dr. Jag Waldrop Nitrite Ql (U) Negative Normal NEGATIVE [facility] Comment on above: Performed By: #### E RUR #### [facility] [address] [place] [address] Dr. Jag Waldrop pH (U) 7.0 [pH] Normal 5-9 [facility] Comment on above: Performed By: #### E RUR #### [facility] [address] [place] [address] Dr. Jag Waldrop SPEC GRAVITY 1.010 Normal 1.005-<=1.0 [facility] Comment on above: Performed By: #### E RUR #### [facility] [address] [place] [address] Dr. Jag Waldrop UA PROTEIN Negative Normal NEGATIVE/ TRACE [facility] Comment on above: Performed By: #### E RUR #### [facility] [address] [place] [address] Dr. Jag Waldrop UR MICRO IND NOT INDICATED Normal [facility] Comment on above: Performed By: #### E RUR #### [facility] [address] [place] [address] Dr. Jag Waldrop Urobilinogen Qn (U) 0.2 {Chris'U}/dL Normal 0.2 - 1. 0 [facility] Comment on above: Performed By: #### E RUR #### [facility] [address] [place] [address] Dr. Jag Waldrop PROF 14(COMP METB)on 023 Albumin [Mass/Vol] 3.9 g/dL Normal 3.4-5.0 [facility] Comment on above: Performed By: #### L IPID, BMP #### [facility] [address] [place] [address] Dr. Jag Waldrop Albumin/Globulin [Mass ratio] 1.2 {ratio} Normal [facility] Comment on above: Performed By: #### L IPID, BMP #### [facility] [address] [place] [address] Dr. Jag Waldrop ALP [Catalytic activity/Vol] 95 U/L Normal 46-116 [facility] Comment on above: Performed By: #### L IPID, BMP #### [facility] [address] [place] [address] Dr. Jag Waldrop ALT [Catalytic activity/Vol] 31 U/L Normal 14-59 [facility] Comment on above: Performed By: #### L IPID, BMP #### [facility] [address] [place] [address] Dr. Jag Waldrop Anion gap [Moles/Vol] 12.7 mmol/L Normal Th e [facility] Comment on above: Performed By: #### L IPID, BMP #### [facility] [address] [place] [address] Dr. Jag Waldrop AST [Catalytic activity/Vol] 34 U/L Normal 15-37 [facility] Comment on above: Performed By: #### L IPID, BMP #### [facility] [address] [place] [address] Dr. Jag Waldrop Bilirubin [Mass/Vol] 0.4 mg/dL Normal 0.2-1.0 [facility] Comment on above: Performed By: #### L IPID, BMP #### [facility] [address] [place] [address] Dr. Jag Waldrop Calcium [Mass/Vol] 9.1 mg/dL Normal 8.5-10.1 [facility] Comment on above: Performed By: #### L IPID, BMP #### [facility] [address] [place] [address] Dr. Jag Waldrop Chloride [Moles/Vol] 107 mmol/L Normal 98-107 [facility] Comment on above: Performed By: #### L IPID, BMP #### [facility] [address] [place] [address] Dr. Jag Waldrop CO2 [Moles/Vol] 28.1 mmol/L Normal 21.0-32.0 [facility] Comment on above: Performed By: #### L IPID, BMP #### [facility] [address] [place] [address] Dr. Jag Waldrop Creatinine [Mass/Vol] 1.18 mg/dL Critically high 0.55-1.02 [facility] Comment on above: Performed By: #### L IPID, BMP #### [facility] [address] [place] [address] Dr. Jag Waldrop EGFR-AF PALAUAN 59 mL/min/1.73m2 Critically low >=60 [facility] Comment on above: Performed By: #### L IPID, BMP #### [facility] [address] [address] [address] Jag Waldrop EGFR-NON AF PALAUAN 48 mL/min/1.73m2 Critically low >=60 [facility] Comment on above: Performed By: #### L IPID, BMP #### [facility] [address] [address] [address] Jag Waldrop Globulin (S) [Mass/Vol] 3.3 g/dL Normal [facility] Comment on above: Performed By: #### L IPID, BMP #### [facility] [address] [place] [address] Dr. Jag Waldrop Glucose [Mass/Vol] 111 mg/dL Critically high 74-106 T [facility] Comment on above: Performed By: #### L IPID, BMP #### [facility] [address] [place] [address] Dr. Jag Waldrop Potassium [Moles/Vol] 3.8 mmol/L Normal 3.5-5.1 [facility] Comment on above: Performed By: #### L IPID, BMP #### [facility] [address] [place] [address] Dr. Jag Wadlrop Protein [Mass/Vol] 7.2 g/dL Normal 6.4-8.2 [facility] Comment on above: Performed By: #### L IPID, BMP #### [facility] [address] [place] [address] Dr. Jag Waldrop Sodium [Moles/Vol] 144 mmol/L Normal 136-145 [facility] Comment on above: Performed By: #### L IPID, BMP #### [facility] [address] [place] [address] Dr. Jag Waldrop Urea nitrogen [Mass/Vol] 19.0 mg/dL Critically high 7.0-18.0 [facility] Comment on above: Performed By: #### L IPID, BMP #### [facility] [address] [address] [address] Jag Waldrop Urea nitrogen/Creatinine [Mass ratio] 16.1 mg/mg Normal [facility] Comment on above: Performed By: #### L IPID, BMP #### [facility] [address] [address] [address] Jag Waldrop PROTIMEon 09-07-2022 INR Coag (PPP) [Relative time] {INR} Normal [facility] Comment on above: Performed By: #### P T #### [facility] [address] [address] [address] Jag Waldrop INR GUIDELINES SEE BELOW Normal [facility] Comment on above: Result Comment: MARTIN RED INR: 2.0 - 3.0 CONDITIONS NOT LISTED BELOW 2.5 - 3.5 FOR PROSTHETIC HEART VALVE REPLACEMENT 2.5 - 3.5 RECURRENT THROMBOSIS Performed By: #### P T #### [facility] [address] [place] [address] Dr. Jag Waldrop PT Coag (PPP) [Time] 9.7 s Normal 9.0-11.6 [facility] Comment on above: Performed By: #### P T #### [facility] [address] [place] [address] Dr. Jag Waldrop TROPONIN, HIGH SENSITIVITYon 09-07-2022 HSTROP 17.8 pg/mL Normal 4.0-51.3 [facility] Comment on above: Result Comment: CUT- OFF POINTS HAVE BEEN ESTABLISHED BASED ON THE FOURTH UNIVERSAL DEFINITIONS OF MYOCARDIAL INFARCTION. THE UPPER REFERENCE LIMIT (URL) OF TROPONIN, DEFINED THE 99TH PERCENTILE OF cTnI DISTRIBUTION IN A REFERENCE POPULATION, HAS BEEN CONFIRMED THE DECISION THRESHOLD FOR [place] DIAGNOSIS. Performed By: #### L IPID, BMP #### [facility] [address] [place] [address] Dr. Jag Waldrop XR CHEST 2 Von [...] Date: 2022-09-07 16:47 Normal [facility] GLYCOHEMOGLOBIN A1Con 2022 ADA RECOMMENDATION SEE BELOW Normal [facility] Comment on above: Result Comment: ADA RECOMMENDED LIMIT 4.0 - 6.0 ADA THERAPEUTIC TARGET < 7.0 ACTION SUGGESTED > 7.0 Performed By: #### L IPID, BMP #### [facility] [address] [place] [address] Dr. Jag Waldrop Glucose [Mass/Vol] 120 mg/dL Normal [facility] Comment on above: Performed By: #### L IPID, BMP #### [facility] [address] [place] [address] Dr. Jag Waldrop HbA1c (Bld) [Mass fraction] 5.8 % Normal 4.5-6.2 [facility] Comment on above: Performed By: #### L IPID, BMP #### [facility] [address] [place] [address] Dr. Jag Waldrop PROF CHEM 8 (BAS METB)on Anion gap [Moles/Vol] 13.2 mmol/L Normal [facility] Comment on above: Performed By: #### B MP #### [facility] [address] [place] [address] Dr. Jag Waldrop Calcium [Mass/Vol] 9.0 mg/dL Normal 8.5-10.1 [facility] Comment on above: Performed By: #### B MP #### [facility] [address] [place] [address] Dr. Jag Waldrop Chloride [Moles/Vol] 107 mmol/L Normal 98-107 [facility] Comment on above: Performed By: #### B MP #### [facility] [address] [place] [address] Dr. Jag Waldrop CO2 [Moles/Vol] 26.3 mmol/L Normal 21.0-32.0 [facility] Comment on above: Performed By: #### B MP #### [facility] [address] [place] [address] Dr. Jag Waldrop Creatinine [Mass/Vol] 1.03 mg/dL Critically high 0.55-1.02 [facility] Comment on above: Performed By: #### B MP #### [facility] [address] [address] [address] Jag Waldrop EGFR-AF PALAUAN >60 Normal >=60 [facility] Comment on above: Performed By: #### B MP #### [facility] [address] [address] [address] Jag Waldrop EGFR-NON AF PALAUAN 56 mL/min/1.73m2 Critically low >=60 [facility] Comment on above: Performed By: #### B MP #### [facility] [address] [address] [address] Jag Waldrop Glucose [Mass/Vol] 149 mg/dL Critically high 74-106 [facility] Comment on above: Performed By: #### B MP #### [facility] [address] [address] [address] Jag Waldrop Potassium [Moles/Vol] 4.5 mmol/L Normal 3.5-5.1 [facility] Comment on above: Performed By: #### B MP #### [facility] [address] [address] [address] Jag Waldrop Sodium [Moles/Vol] 142 mmol/L Normal 136-145 [facility] Comment on above: Performed By: #### B MP #### [facility] [address] [address] [address] Jag Waldrop Urea nitrogen [Mass/Vol] 22.0 mg/dL Critically high 7.0-18.0 [facility] Comment on above: Performed By: #### B MP #### [facility] [address] [address] [address] Jag Waldrop Urea nitrogen/Creatinine [Mass ratio] 21.4 mg/mg Normal [facility] Comment on above: Performed By: #### B MP #### [facility] [address] [address] [address] ABD/PELVIS WO CONon [...] by: NATHAN COLE Date: 2022-05-29 22:50 Normal [facility] US KVNG DOP LEG RTon [...] Date: 2022-05-29 22:42 Normal [facility] CBC AUTO DIFFon 05-29-2022 BASO # 0.1 103/ul Normal 0.0-0.1 [facility] Comment on above: Performed By: #### L IPID, BMP #### [facility] [address] [place] [address] Dr. Jag Waldrop Basophils/100 WBC (Bld) 0.7 % Normal 0.2-2.0 [facility] Comment on above: Performed By: #### L IPID, BMP #### [facility] [address] [place] [address] Dr. Jag Waldrop EO # 0.1 103/ul Normal 0.0-0.7 [facility] Comment on above: Performed By: #### L IPID, BMP #### [facility] [address] [place] [address] Dr. Jag Waldrop Eosinophils/100 WBC (Bld) 1.5 % Normal 0.9-7.0 [facility] Comment on above: Performed By: #### L IPID, BMP #### [facility] [address] [place] [address] Dr. Jag Waldrop Erythrocyte distribution width (RBC) [Ratio] 13.9 % Normal 11.0-15.0 [facility] Comment on above: Performed By: #### L IPID, BMP #### [facility] [address] [place] [address] Dr. Jag Waldrop Hematocrit (Bld) [Volume fraction] 34.2 % Critically low 36.0-48.0 [facility] Comment on above: Performed By: #### L IPID, BMP #### [facility] [address] [place] [address] Dr. Jag Waldrop Hemoglobin (Bld) [Mass/Vol] 10.9 g/dL Critically low 12.0-16.0 [facility] Comment on above: Performed By: #### L IPID, BMP #### [facility] [address] [place] [address] Dr. Jag Waldrop IG # 0.02 10e3/ul Normal 0.00-0.03 [facility] Comment on above: Performed By: #### L IPID, BMP #### [facility] [address] [place] [address] Dr. Jag Waldrop IG % 0.2 % Normal 0.0-0.5 [facility] Comment on above: Performed By: #### L IPID, BMP #### [facility] [address] [place] [address] Dr. Jag Waldrop LYMPH # 2.5 103/ul Normal 1.2-3.8 [facility] Comment on above: Performed By: #### L IPID, BMP #### [facility] [address] [place] [address] Dr. Jag Waldrop Lymphocytes/100 WBC (Bld) 30.4 % Normal 20.5-60.0 [facility] Comment on above: Performed By: #### L IPID, BMP #### [facility] [address] [place] [address] Dr. Jag Waldrop MANUAL DIFF REQ NO Normal [facility] Comment on above: Performed By: #### L IPID, BMP #### [facility] [address] [place] [address] Dr. Jag Waldrop MCH (RBC) [Entitic mass] 27.1 pg Normal 26.7-34.0 [facility] Comment on above: Performed By: #### L IPID, BMP #### [facility] [address] [place] [address] Dr. Jag aWldrop MCHC (RBC) [Mass/Vol] 31.9 g/dL Normal 29.9-35.2 [facility] Comment on above: Performed By: #### L IPID, BMP #### [facility] [address] [place] [address] Dr. Jag Waldrop MCV (RBC) [Entitic vol] 85.1 fL Normal 81.0-99.0 [facility] Comment on above: Performed By: #### L IPID, BMP #### [facility] [address] [place] [address] Dr. Jag Waldrop MONO # 0.5 103/ul Normal 0.3-0.8 [facility] Comment on above: Performed By: #### L IPID, BMP #### [facility] [address] [place] [address] Dr. Jag Waldrop Monocytes/100 WBC (Bld) 6.7 % Normal 1.7-12.0 [facility] Comment on above: Performed By: #### L IPID, BMP #### [facility] [address] [place] [address] Dr. Jag Waldrop NEUT # 4.9 103/ul Normal 1.4-6.5 [facility] Comment on above: Performed By: #### L IPID, BMP #### [facility] [address] [place] [address] Dr. Jag Waldrop Neutrophils/100 WBC (Bld) 60.5 % Normal 43.0-75.0 [facility] Comment on above: Performed By: #### L IPID, BMP #### [facility] [address] [place] [address] Dr. Jag Waldrop Platelet mean volume (Bld) [Entitic vol] 10.3 fL Normal 9.5-13.5 [facility] Comment on above: Performed By: #### L IPID, BMP #### [facility] [address] [place] [address] Dr. Jag Waldrop PLT 256 103/ul Normal 150-450 [facility] Comment on above: Performed By: #### L IPID, BMP #### [facility] [address] [place] [address] Dr. Jag Waldrop RBC 4.02 106/ul Critically low 4.20-5.40 [facility] Comment on above: Performed By: #### L IPID, BMP #### [facility] [address] [place] [address] Dr. Jag Waldrop WBC 8.1 103/ul Normal 4.0-11.0 [facility] Comment on above: Performed By: #### L IPID, BMP #### [facility] [address] [address] [address] Jag BRADLEY URINE PROFILEon 3 Bilirubin Ql (U) Negative Normal NEGATIVE [facility] Comment on above: Performed By: #### L IPID, BMP #### [facility] [address] [address] [address] Jag Waldrop Clarity (U) CLEAR Normal CLEAR [facility] Comment on above: Performed By: #### L IPID, BMP #### [facility] [address] [place] [address] Dr. Jag Waldrop Color (U) YELLOW Normal YELLOW [facility] Comment on above: Performed By: #### L IPID, BMP #### [facility] [address] [place] [address] Dr. Jag Waldrop ERUAHD A micrscopic examina tion will be performed if indicated. Normal [facility] Comment on above: Performed By: #### L IPID, BMP #### [facility] [address] [place] [address] Dr. Jag Waldrop Glucose Ql (U) Negative Normal NEGATIVE [facility] Comment on above: Performed By: #### L IPID, BMP #### [facility] [address] [place] [address] Dr. Jag Waldrop Hemoglobin Ql (U) Negative Normal NEGATIVE [facility] Comment on above: Performed By: #### L IPID, BMP #### [facility] [address] [address] [address] Jag Waldrop Ketones Ql (U) 15 mg/dl Abnormal NEGATIVE [facility] Comment on above: Performed By: #### L IPID, BMP #### [facility] [address] [place] [address] Dr. Jag Waldrop LEUKOCYTES TRACE Abnormal NEGATIVE [facility] Comment on above: Performed By: #### L IPID, BMP #### [facility] [address] [place] [address] Dr. Jag Waldrop Nitrite Ql (U) Negative Normal NEGATIVE [facility] Comment on above: Performed By: #### L IPID, BMP #### [facility] [address] [place] [address] Dr. Jag Waldrop pH (U) 5.5 [pH] Normal 5-9 [facility] Comment on above: Performed By: #### L IPID, BMP #### [facility] [address] [place] [address] Dr. Jag Waldrop SPEC GRAVITY 1.020 Normal 1.005-<=1.0 [facility] Comment on above: Performed By: #### L IPID, BMP #### [facility] [address] [place] [address] Dr. Jag Waldrop UA PROTEIN Negative Normal NEGATIVE/ TRACE [facility] Comment on above: Performed By: #### L IPID, BMP #### [facility] [address] [place] [address] Dr. Jag Waldrop UR MICRO IND INDICATED Normal [facility] Comment on above: Performed By: #### L IPID, BMP #### [facility] [address] [place] [address] Dr. Jag Waldrop Urobilinogen Qn (U) 0.2 {Chris'U}/dL Normal 0.2 - 1. 0 [facility] Comment on above: Performed By: #### L IPID, BMP #### [facility] [address] [place] [address] Dr. Jag Waldrop PROF CHEM 8 (BAS METB)on Anion gap [Moles/Vol] 14.2 mmol/L Normal [facility] Comment on above: Performed By: #### B MP #### [facility] [address] [place] [address] Dr. Jag Waldrop Calcium [Mass/Vol] 9.1 mg/dL Normal 8.5-10.1 [facility] Comment on above: Performed By: #### B MP #### [facility] [address] [place] [address] Dr. Jag Waldrop Chloride [Moles/Vol] 106 mmol/L Normal 98-107 [facility] Comment on above: Performed By: #### B MP #### [facility] [address] [address] [address] Jag Waldrop CO2 [Moles/Vol] 23.5 mmol/L Normal 21.0-32.0 [facility] Comment on above: Performed By: #### B MP #### [facility] [address] [address] [address] Jag Waldrop Creatinine [Mass/Vol] 1.29 mg/dL Critically high 0.55-1.02 [facility] Comment on above: Performed By: #### B MP #### [facility] [address] [address] [address] Jag Waldrop EGFR-AF PALAUAN 53 mL/min/1.73m2 Critically low >=60 [facility] Comment on above: Performed By: #### B MP #### [facility] [address] [address] [address] Jag Waldrop EGFR-NON AF PALAUAN 44 mL/min/1.73m2 Critically low >=60 [facility] Comment on above: Performed By: #### B MP #### [facility] [address] [address] [address] Jag Waldrop Glucose [Mass/Vol] 93 mg/dL Normal 74-106 [facility] Comment on above: Performed By: #### B MP #### [facility] [address] [address] [address] Jag Waldrop Potassium [Moles/Vol] 3.7 mmol/L Normal 3.5-5.1 [facility] Comment on above: Performed By: #### B MP #### [facility] [address] [address] [address] Jag Waldrop Sodium [Moles/Vol] 140 mmol/L Normal 136-145 [facility] Comment on above: Performed By: #### B MP #### [facility] [address] [address] [address] Jag Waldrop Urea nitrogen [Mass/Vol] 24.0 mg/dL Critically high 7.0-18.0 [facility] Comment on above: Performed By: #### B MP #### [facility] [address] [place] [address] Dr. Jag Waldrop Urea nitrogen/Creatinine [Mass ratio] 18.6 mg/mg Normal [facility] Comment on above: Performed By: #### B MP #### [facility] [address] [place] [address] Dr. Jag Waldrop URINE MICROSCOPIC ONLYon BACTERIA TRACE Abnormal NONE SEEN [facility] Comment on above: Performed By: #### L IPID, BMP #### [facility] [address] [place] [address] Dr. Jag Waldrop Bacteria identified Cx Nom (U) NOT INDICATED Normal [facility] Comment on above: Performed By: #### L IPID, BMP #### [facility] [address] [place] [address] Dr. Jag Waldrop CAST NONE SEEN Normal NONE SEEN [facility] Comment on above: Performed By: #### L IPID, BMP #### [facility] [address] [place] [address] Dr. Jag Waldrop Crystals LM Nom (Urine sed) NONE SEEN Normal NONE SEEN [facility] Comment on above: Performed By: #### L IPID, BMP #### [facility] [address] [place] [address] Dr. Jag Waldrop Epithelial cells LM Ql (Urine sed) RARE Normal NONE SEEN /RARE [facility] Comment on above: Performed By: #### L IPID, BMP #### [facility] [address] [place] [address] Dr. Jag Waldrop MUCOUS NONE SEEN Normal NONE SEEN [facility] Comment on above: Performed By: #### L IPID, BMP #### [facility] [address] [place] [address] Dr. Jag Waldrop RBC 5-10 Abnormal 0-2 [facility] Comment on above: Performed By: #### L IPID, BMP #### [facility] [address] [place] [address] Dr. Jag Waldrop WBC 0-2 Abnormal NONE SEEN [facility] Comment on above: Performed By: #### L IPID, BMP #### [facility] [address] [address] [address] Jag Waldrop MG MAMM SCREEN 3D ORESTES CADon 03-29-2022 MG MAMM SCREEN 3D ORESTES CAD Patient: SHERYL HUMPHREYS Exam Date: 03/29/2022 : 1970 Gender:F Ordering : AGUSTINA JANENE [facility] Admission #: [id number] Family : Order #: [id number] CLICK HERE TO VIEW EXAM RADIOLOGY REPORT [...] at age 73. LOCATION: [facility] BREAST COMPOSITION: Scattered areas fibroglandular density. [...] M.D. on 03/29/2022 at 15:31 Normal [facility] MRI LSPINE WO W CONon 2021 [...] by: KATHY LOBATO Date: 2022-03-23 11:26 Normal [facility] MRI TSPINE WO W CONon 2021 [...] by: KATHY LOBATO Date: 2022-03-23 12:50 Normal [facility] PROF CHEM 8 (BAS METB)on Anion gap [Moles/Vol] 11.8 mmol/L Normal [facility] Comment on above: Performed By: #### P OCGLUC #### [facility] [address] [address] [address] Jag Waldrop Calcium [Mass/Vol] 9.0 mg/dL Normal 8.5-10.1 [facility] Comment on above: Performed By: #### P OCGLUC #### [facility] [address] [address] [address] Jag Waldrop Chloride [Moles/Vol] 107 mmol/L Normal 98-107 [facility] Comment on above: Performed By: #### P OCGLUC #### [facility] [address] [place] [address] Dr. Jag Waldrop CO2 [Moles/Vol] 30.2 mmol/L Normal 21.0-32.0 [facility] Comment on above: Performed By: #### P OCGLUC #### [facility] [address] [place] [address] Dr. Jag Waldrop Creatinine [Mass/Vol] 1.32 mg/dL Critically high 0.55-1.02 [facility] Comment on above: Performed By: #### P OCGLUC #### [facility] [address] [place] [address] Dr. Jag Waldrop EGFR-AF PALAUAN 51 mL/min/1.73m2 Critically low >=60 [facility] Comment on above: Performed By: #### P OCGLUC #### [facility] [address] [place] [address] Dr. Jag Waldrop EGFR-NON AF PALAUAN 42 mL/min/1.73m2 Critically low >=60 [facility] Comment on above: Performed By: #### P OCGLUC #### [facility] [address] [place] [address] Dr. Jag Waldrop Glucose [Mass/Vol] 117 mg/dL Critically high 74-106 [facility] Comment on above: Performed By: #### P OCGLUC #### [facility] [address] [place] [address] Dr. Jag Waldrop Potassium [Moles/Vol] 4.0 mmol/L Normal 3.5-5.1 [facility] Comment on above: Performed By: #### P OCGLUC #### [facility] [address] [address] [address] Jag Waldrop Sodium [Moles/Vol] 145 mmol/L Normal 136-145 [facility] Comment on above: Performed By: #### P OCGLUC #### [facility] [address] [address] [address] Jag Waldrop Urea nitrogen [Mass/Vol] 23.0 mg/dL Critically high 7.0-18.0 [facility] Comment on above: Performed By: #### P OCGLUC #### [facility] [address] [place] [address] Dr. Jag Waldrop Urea nitrogen/Creatinine [Mass ratio] 17.4 mg/mg Normal [facility] Comment on above: Performed By: #### P OCGLUC #### [facility] [address] [place] [address] Dr. Jag Waldrop CBC AUTO DIFFon 02-19-2022 BASO # 0.1 103/ul Normal 0.0-0.1 [facility] Comment on above: Performed By: #### P OCGLUC #### [facility] [address] [place] [address] Dr. Jag Waldrop Basophils/100 WBC (Bld) 1.0 % Normal 0.2-2.0 [facility] Comment on above: Performed By: #### P OCGLUC #### [facility] [address] [place] [address] Dr. Jag Waldrop EO # 0.1 103/ul Normal 0.0-0.7 [facility] Comment on above: Performed By: #### P OCGLUC #### [facility] [address] [place] [address] Dr. Jag Waldrop Eosinophils/100 WBC (Bld) 1.9 % Normal 0.9-7.0 [facility] Comment on above: Performed By: #### P OCGLUC #### [facility] [address] [place] [address] Dr. Jag Waldrop Erythrocyte distribution width (RBC) [Ratio] 13.2 % Normal 11.0-15.0 [facility] Comment on above: Performed By: #### P OCGLUC #### [facility] [address] [place] [address] Dr. Jag Waldrop Hematocrit (Bld) [Volume fraction] 36.7 % Normal 36.0-48.0 [facility] Comment on above: Performed By: #### P OCGLUC #### [facility] [address] [place] [address] Dr. Jag Waldrop Hemoglobin (Bld) [Mass/Vol] 11.4 g/dL Critically low 12.0-16.0 [facility] Comment on above: Performed By: #### P OCGLUC #### [facility] [address] [place] [address] Dr. Jag Waldrop IG # 0.03 10e3/ul Normal 0.00-0.03 [facility] Comment on above: Performed By: #### P OCGLUC #### [facility] [address] [place] [address] Dr. Jag Waldrop IG % 0.5 % Normal 0.0-0.5 [facility] Comment on above: Performed By: #### P OCGLUC #### [facility] [address] [place] [address] Dr. Jag Waldrop LYMPH # 2.1 103/ul Normal 1.2-3.8 [facility] Comment on above: Performed By: #### P OCGLUC #### [facility] [address] [place] [address] Dr. Jag Waldrop Lymphocytes/100 WBC (Bld) 34.1 % Normal 20.5-60.0 [facility] Comment on above: Performed By: #### P OCGLUC #### [facility] [address] [place] [address] Dr. Jag Waldrop MANUAL DIFF REQ NO Normal [facility] Comment on above: Performed By: #### P OCGLUC #### [facility] [address] [place] [address] Dr. Jag Waldrop MCH (RBC) [Entitic mass] 28.4 pg Normal 26.7-34.0 [facility] Comment on above: Performed By: #### P OCGLUC #### [facility] [address] [address] [address] Jag Waldrop MCHC (RBC) [Mass/Vol] 31.1 g/dL Normal 29.9-35.2 [facility] Comment on above: Performed By: #### P OCGLUC #### [facility] [address] [place] [address] Dr. Jag Waldrop MCV (RBC) [Entitic vol] 91.5 fL Normal 81.0-99.0 [facility] Comment on above: Performed By: #### P OCGLUC #### [facility] [address] [place] [address] Dr. Jag Waldrop MONO # 0.5 103/ul Normal 0.3-0.8 [facility] Comment on above: Performed By: #### P OCGLUC #### [facility] [address] [place] [address] Dr. Jag Waldrop Monocytes/100 WBC (Bld) 8.4 % Normal 1.7-12.0 [facility] Comment on above: Performed By: #### P OCGLUC #### [facility] [address] [place] [address] Dr. Jag Waldrop NEUT # 3.3 103/ul Normal 1.4-6.5 [facility] Comment on above: Performed By: #### P OCGLUC #### [facility] [address] [place] [address] Dr. Jag Waldrop Neutrophils/100 WBC (Bld) 54.1 % Normal 43.0-75.0 [facility] Comment on above: Performed By: #### P OCGLUC #### [facility] [address] [place] [address] Dr. Jag Waldrop Platelet mean volume (Bld) [Entitic vol] 10.6 fL Normal 9.5-13.5 [facility] Comment on above: Performed By: #### P OCGLUC #### [facility] [address] [address] [address] Jag Waldrop PLT 294 103/ul Normal 150-450 [facility] Comment on above: Performed By: #### P OCGLUC #### [facility] [address] [address] [address] Jag Waldrop RBC 4.01 106/ul Critically low 4.20-5.40 [facility] Comment on above: Performed By: #### P OCGLUC #### [facility] [address] [address] [address] Jag Waldrop WBC 6.2 103/ul Normal 4.0-11.0 [facility] Comment on above: Performed By: #### P OCGLUC #### [facility] [address] [place] [address] Dr. Jag Waldrop CRPon 02-19-2022 CRP [Mass/Vol] mg/L Normal <=1.0 [facility] Comment on above: Performed By: #### E RUR #### [facility] [address] [place] [address] TSPINE WO CONon [...] by: ALEX AVINA Date: 2022-02-19 19:25 Normal [facility] ER URINE PROFILEon 2 Bilirubin Ql (U) Negative Normal NEGATIVE [facility] Comment on above: Performed By: #### P OCGLUC #### [facility] [address] [place] [address] Dr. Jag Waldrop Clarity (U) CLEAR Normal CLEAR [facility] Comment on above: Performed By: #### P OCGLUC #### [facility] [address] [address] [address] Jag Waldrop Color (U) LT. YELLOW Normal YELLOW [facility] Comment on above: Performed By: #### P OCGLUC #### [facility] [address] [place] [address] Dr. Jag SAL A micrscopic examina tion will be performed if indicated. Normal [facility] Comment on above: Performed By: #### P OCGLUC #### [facility] [address] [place] [address] Dr. Jag Waldrop Glucose Ql (U) Negative Normal NEGATIVE [facility] Comment on above: Performed By: #### P OCGLUC #### [facility] [address] [place] [address] Dr. Jag Waldrop Hemoglobin Ql (U) Negative Normal NEGATIVE [facility] Comment on above: Performed By: #### P OCGLUC #### [facility] [address] [place] [address] Dr. Jag Waldrop Ketones Ql (U) Negative Normal NEGATIVE [facility] Comment on above: Performed By: #### P OCGLUC #### [facility] [address] [place] [address] Dr. Jag Waldrop LEUKOCYTES Negative Normal NEGATIVE [facility] Comment on above: Performed By: #### P OCGLUC #### [facility] [address] [place] [address] Dr. Jag Waldrop Nitrite Ql (U) Negative Normal NEGATIVE [facility] Comment on above: Performed By: #### P OCGLUC #### [facility] [address] [place] [address] Dr. Jag Waldrop pH (U) 5.5 [pH] Normal 5-9 [facility] Comment on above: Performed By: #### P OCGLUC #### [facility] [address] [place] [address] Dr. Jag Waldrop SPEC GRAVITY 1.020 Normal 1.005-<=1.0 25 [facility] Comment on above: Performed By: #### P OCGLUC #### [facility] [address] [place] [address] Dr. Jag Waldrop UA PROTEIN Negative Normal NEGATIVE/ TRACE [facility] Comment on above: Performed By: #### P OCGLUC #### [facility] [address] [place] [address] Dr. Jag Waldrop UR MICRO IND NOT INDICATED Normal [facility] Comment on above: Performed By: #### P OCGLUC #### [facility] [address] [place] [address] Dr. Jag Waldrop Urobilinogen Qn (U) 0.2 {Chris'U}/dL Normal 0.2 - 1. 0 [facility] Comment on above: Performed By: #### P OCGLUC #### [facility] [address] [place] [address] Dr. Jag Waldrop PROF CHEM 8 (BAS METB)on Anion gap [Moles/Vol] 10.8 mmol/L Normal [facility] Comment on above: Performed By: #### E RUR #### [facility] [address] [place] [address] Dr. Jag Waldrop Calcium [Mass/Vol] 9.0 mg/dL Normal 8.5-10.1 [facility] Comment on above: Performed By: #### E RUR #### [facility] [address] [place] [address] Dr. Jag Waldrop Chloride [Moles/Vol] 106 mmol/L Normal 98-107 [facility] Comment on above: Performed By: #### E RUR #### [facility] [address] [place] [address] Dr. Jag Waldrop CO2 [Moles/Vol] 28.1 mmol/L Normal 21.0-32.0 [facility] Comment on above: Performed By: #### E RUR #### [facility] [address] [place] [address] Dr. Jag Waldrpo Creatinine [Mass/Vol] 1.06 mg/dL Critically high 0.55-1.02 [facility] Comment on above: Performed By: #### E RUR #### [facility] [address] [place] [address] Dr. Jag Waldrop EGFR-AF PALAUAN >60 Normal >=60 [facility] Comment on above: Performed By: #### E RUR #### [facility] [address] [place] [address] Dr. Jag Waldrop EGFR-NON AF PALAUAN 55 mL/min/1.73m2 Critically low >=60 [facility] Comment on above: Performed By: #### E RUR #### [facility] [address] [place] [address] Dr. Jag Waldrop Glucose [Mass/Vol] 89 mg/dL Normal 74-106 [facility] Comment on above: Performed By: #### E RUR #### [facility] [address] [place] [address] Dr. Jag Waldrop Potassium [Moles/Vol] 3.9 mmol/L Normal 3.5-5.1 [facility] Comment on above: Performed By: #### E RUR #### [facility] [address] [place] [address] Dr. Jag Waldrop Sodium [Moles/Vol] 141 mmol/L Normal 136-145 [facility] Comment on above: Performed By: #### E RUR #### [facility] [address] [place] [address] Dr. Jag Waldrop Urea nitrogen [Mass/Vol] 19.0 mg/dL Critically high 7.0-18.0 [facility] Comment on above: Performed By: #### E RUR #### [facility] [address] [place] [address] Dr. Jag Waldrop Urea nitrogen/Creatinine [Mass ratio] 17.9 mg/mg Normal [facility] Comment on above: Performed By: #### E RUR #### [facility] [address] [place] [address] Dr. Jag Waldrop SED RATE [facility] 2021 SED RATE 19 mm/hr Normal <=30 [facility] Comment on above: Performed By: #### L IPID, BMP #### [facility] [address] [place] [address] Dr. Jag Waldrop PROF CHEM 8 (BAS METB)on Anion gap [Moles/Vol] 17.3 mmol/L Normal [facility] Comment on above: Performed By: #### L IPID, BMP #### [facility] [address] [place] [address] Dr. Jag Waldrop Calcium [Mass/Vol] 9.2 mg/dL Normal 8.5-10.1 [facility] Comment on above: Performed By: #### L IPID, BMP #### [facility] [address] [place] [address] Dr. Jag Waldrop Chloride [Moles/Vol] 108 mmol/L Critically high 98-107 [facility] Comment on above: Performed By: #### L IPID, BMP #### [facility] [address] [place] [address] Dr. Jag Waldrop CO2 [Moles/Vol] 20.0 mmol/L Critically low 21.0-32.0 [facility] Comment on above: Performed By: #### L IPID, BMP #### [facility] [address] [place] [address] Dr. Jag Waldrop Creatinine [Mass/Vol] 1.40 mg/dL Critically high 0.55-1.02 [facility] Comment on above: Performed By: #### L IPID, BMP #### [facility] [address] [place] [address] Dr. Jag Waldrop EGFR-AF PALAUAN 48 mL/min/1.73m2 Critically low >=60 [facility] Comment on above: Performed By: #### L IPID, BMP #### [facility] [address] [address] [address] Jag Waldrop EGFR-NON AF PALAUAN 40 mL/min/1.73m2 Critically low >=60 [facility] Comment on above: Performed By: #### L IPID, BMP #### [facility] [address] [place] [address] Dr. Jag Waldrop Glucose [Mass/Vol] 126 mg/dL Critically high 74-106 [facility] Comment on above: Performed By: #### L IPID, BMP #### [facility] [address] [place] [address] Dr. Jag Waldrop Potassium [Moles/Vol] 5.3 mmol/L Critically high 3.5-5.1 [facility] Comment on above: Performed By: #### L IPID, BMP #### [facility] [address] [place] [address] Dr. Jag Waldrop Sodium [Moles/Vol] 140 mmol/L Normal 136-145 [facility] Comment on above: Performed By: #### L IPID, BMP #### [facility] [address] [place] [address] Dr. Jag Waldrop Urea nitrogen [Mass/Vol] 31.0 mg/dL Critically high 7.0-18.0 [facility] Comment on above: Performed By: #### L IPID, BMP #### [facility] [address] [place] [address] Dr. Jag Waldrop Urea nitrogen/Creatinine [Mass ratio] 22.1 mg/mg Normal [facility] Comment on above: Performed By: #### L IPID, BMP #### [facility] [address] [place] [address] Dr. Jag Waldrop CBC AUTO DIFFon 01-23-2022 BASO # 0.1 103/ul Normal 0.0-0.1 [facility] Comment on above: Performed By: #### C BC #### [facility] [address] [place] [address] Dr. Jag Waldrop Basophils/100 WBC (Bld) 1.0 % Normal 0.2-2.0 [facility] Comment on above: Performed By: #### C BC #### [facility] [address] [place] [address] Dr. Jag Waldrop EO # 0.2 103/ul Normal 0.0-0.7 [facility] Comment on above: Performed By: #### C BC #### [facility] [address] [place] [address] Dr. Jag Waldrop Eosinophils/100 WBC (Bld) 3.3 % Normal 0.9-7.0 [facility] Comment on above: Performed By: #### C BC #### [facility] [address] [place] [address] Dr. Jag Waldrop Erythrocyte distribution width (RBC) [Ratio] 13.2 % Normal 11.0-15.0 [facility] Comment on above: Performed By: #### C BC #### [facility] [address] [place] [address] Dr. Jag Waldrop Hematocrit (Bld) [Volume fraction] 35.6 % Critically low 36.0-48.0 [facility] Comment on above: Performed By: #### C BC #### [facility] [address] [place] [address] Dr. Jag Waldrop Hemoglobin (Bld) [Mass/Vol] 10.6 g/dL Critically low 12.0-16.0 [facility] Comment on above: Performed By: #### C BC #### [facility] [address] [place] [address] Dr. Jag Waldrop IG # 0.01 10e3/ul Normal 0.00-0.03 [facility] Comment on above: Performed By: #### C BC #### [facility] [address] [place] [address] Dr. Jag Waldrop IG % 0.2 % Normal 0.0-0.5 [facility] Comment on above: Performed By: #### C BC #### [facility] [address] [place] [address] Dr. Jag Waldrop LYMPH # 1.7 103/ul Normal 1.2-3.8 [facility] Comment on above: Performed By: #### C BC #### [facility] [address] [place] [address] Dr. Jag Waldrop Lymphocytes/100 WBC (Bld) 35.4 % Normal 20.5-60.0 [facility] Comment on above: Performed By: #### C BC #### [facility] [address] [place] [address] Dr. Jag Waldrop MANUAL DIFF REQ NO Normal [facility] Comment on above: Performed By: #### C BC #### [facility] [address] [place] [address] Dr. Jag Waldrop MCH (RBC) [Entitic mass] 29.0 pg Normal 26.7-34.0 [facility] Comment on above: Performed By: #### C BC #### [facility] [address] [place] [address] Dr. Jag Waldrop MCHC (RBC) [Mass/Vol] 29.8 g/dL Critically low 29.9-35.2 [facility] Comment on above: Performed By: #### C BC #### [facility] [address] [place] [address] Dr. Jag Waldrop MCV (RBC) [Entitic vol] 97.3 fL Normal 81.0-99.0 [facility] Comment on above: Performed By: #### C BC #### [facility] [address] [place] [address] Dr. Jag Waldrop MONO # 0.3 103/ul Normal 0.3-0.8 [facility] Comment on above: Performed By: #### C BC #### [facility] [address] [place] [address] Dr. Jag Waldrop Monocytes/100 WBC (Bld) 6.8 % Normal 1.7-12.0 [facility] Comment on above: Performed By: #### C BC #### [facility] [address] [place] [address] Dr. Jag Waldrop NEUT # 2.6 103/ul Normal 1.4-6.5 [facility] Comment on above: Performed By: #### C BC #### [facility] [address] [address] [address] Jag Waldrop Neutrophils/100 WBC (Bld) 53.3 % Normal 43.0-75.0 [facility] Comment on above: Performed By: #### C BC #### [facility] [address] [address] [address] Jag Waldrop Platelet mean volume (Bld) [Entitic vol] 11.0 fL Normal 9.5-13.5 [facility] Comment on above: Performed By: #### C BC #### [facility] [address] [address] [address] Jag Waldrop PLT 230 103/ul Normal 150-450 [facility] Comment on above: Performed By: #### C BC #### [facility] [address] [place] [address] Dr. Jag Waldrop RBC 3.66 106/ul Critically low 4.20-5.40 [facility] Comment on above: Performed By: #### C BC #### [facility] [address] [place] [address] Dr. Jag Waldrop WBC 4.8 103/ul Normal 4.0-11.0 [facility] Comment on above: Performed By: #### C BC #### [facility] [address] [place] [address] Dr. Jag Waldrop FERRITINon 01-23-2022 Ferritin [Mass/Vol] 35.0 ng/mL Normal 8.0-252.0 [facility] Comment on above: Performed By: #### L IPID, BMP #### [facility] [address] [place] [address] Dr. Jag Waldrop IRONon 01-23-2022 Iron [Mass/Vol] 71.0 ug/dL Normal 50.0-170.0 [facility] Comment on above: Performed By: #### L IPID, BMP #### [facility] [address] [place] [address] Dr. Jag Waldrop LIPID PROFILEon 01-23-2022 CHOL-HDL RATIO NORM SEE BELOW Normal [facility] Comment on above: Result Comment: 3.3 - 4.4 LOW RISK 4.4 - 7.1 AVERAGE RISK 7.1 - 11.0 MODERATE RISK >11.0 HIGH RISK Performed By: #### L IPID, BMP #### [facility] [address] [place] [address] Dr. Jag Waldrop Cholesterol [Mass/Vol] 133 mg/dL Normal <=200 [facility] Comment on above: Performed By: #### L IPID, BMP #### [facility] [address] [address] [address] Jag Waldrop Cholesterol in HDL [Mass/Vol] 41 mg/dL Normal 40-60 [facility] Comment on above: Performed By: #### L IPID, BMP #### [facility] [address] [place] [address] Dr. Jag Waldrop Cholesterol in LDL [Mass/Vol] 70.8 mg/dL Normal [facility] Comment on above: Performed By: #### L IPID, BMP #### [facility] [address] [place] [address] Dr. Jag Waldrop Cholesterol.total/Chol esterol in HDL [Mass ratio] 3.2 {ratio} Normal [facility] Comment on above: Performed By: #### L IPID, BMP #### [facility] [address] [place] [address] Dr. Jag Waldrop HDL NORMAL > or = 60 mg/dl - LO W CARDIOVASCULAR RISK <40 mg/dl - HIGH CARDIOVASCULAR RISK Normal [facility] Comment on above: Performed By: #### L IPID, BMP #### [facility] [address] [place] [address] Dr. Jag Waldrop LDL CALC NORMAL SEE BELOW Normal [facility] Comment on above: Result Comment: <100 mg/dl OPTIMAL 100 - 129 mg/dl NEAR OR ABOVE OPTIMAL 130 - 159 mg/dl BORDERLINE HIGH 160 - 189 mg/dl HIGH >190 mg/dl VERY HIGH Performed By: #### L IPID, BMP #### [facility] [address] [place] [address] Dr. Jag Waldrop Triglyceride [Mass/Vol] 106 mg/dL Normal <=150 [facility] Comment on above: Performed By: #### L IPID, BMP #### [facility] [address] [place] [address] Dr. Jag Waldrop VLDL CALC 21.2 mg/dL Normal [facility] Comment on above: Performed By: #### L IPID, BMP #### [facility] [address] [place] [address] Dr. Jag Waldrop PROF CHEM 8 (BAS METB)on Anion gap [Moles/Vol] 18.2 mmol/L Normal [facility] Comment on above: Performed By: #### L IPID, BMP #### [facility] [address] [place] [address] Dr. Jag Waldrop Calcium [Mass/Vol] 9.3 mg/dL Normal 8.5-10.1 [facility] Comment on above: Performed By: #### L IPID, BMP #### [facility] [address] [place] [address] Dr. Jag Waldrop Chloride [Moles/Vol] 111 mmol/L Critically high 98-107 [facility] Comment on above: Performed By: #### L IPID, BMP #### [facility] [address] [place] [address] Dr. Jag Waldrop CO2 [Moles/Vol] 19.9 mmol/L Critically low 21.0-32.0 [facility] Comment on above: Performed By: #### L IPID, BMP #### [facility] [address] [place] [address] Dr. Jag Waldrop Creatinine [Mass/Vol] 1.27 mg/dL Critically high 0.55-1.02 [facility] Comment on above: Performed By: #### L IPID, BMP #### [facility] [address] [place] [address] Dr. Jag Waldrop EGFR-AF PALAUAN 54 mL/min/1.73m2 Critically low >=60 [facility] Comment on above: Performed By: #### L IPID, BMP #### [facility] [address] [place] [address] Dr. Jag Waldrop EGFR-NON AF PALAUAN 44 mL/min/1.73m2 Critically low >=60 [facility] Comment on above: Performed By: #### L IPID, BMP #### [facility] [address] [place] [address] Dr. Jag Waldrop Glucose [Mass/Vol] 129 mg/dL Critically high 74-106 T [facility] Comment on above: Performed By: #### L IPID, BMP #### [facility] [address] [place] [address] Dr. Jag Waldrop Potassium [Moles/Vol] 6.1 mmol/L Critically high 3.5-5.1 [facility] Comment on above: Performed By: #### L IPID, BMP #### [facility] [address] [place] [address] Dr. Jag Waldrop Sodium [Moles/Vol] 142 mmol/L Normal 136-145 [facility] Comment on above: Performed By: #### L IPID, BMP #### [facility] [address] [place] [address] Dr. Jag Waldrop Urea nitrogen [Mass/Vol] 35.0 mg/dL Critically high 7.0-18.0 [facility] Comment on above: Performed By: #### L IPID, BMP #### [facility] [address] [place] [address] Dr. Jag Waldrop Urea nitrogen/Creatinine [Mass ratio] 27.6 mg/mg Normal [facility] Comment on above: Performed By: #### L IPID, BMP #### [facility] [address] [place] [address] Dr. Jag Waldrop VITAMIN B12on 01-23-2022 Cobalamin (Vitamin B12) [Mass/Vol] 267.0 pg/mL Normal 193.0-986.0 [facility] Comment on above: Performed By: #### L IPID, BMP #### [facility] [address] [place] [address] Dr. Jag Waldrop XR CSPINE 2_3 VIEWSon [...] KATHY LOBATO Date: 2022-01-12 09:39 Normal [facility] BNPon 12-21-2021 Natriuretic peptide B (Bld) [Mass/Vol] 283.0 pg/mL Normal <=900.0 [facility] Comment on above: Performed By: #### P OCGLUC #### [facility] [address] [place] [address] Dr. Jag Waldrop CBC AUTO DIFFon 12-21-2021 BASO # 0.1 103/ul Normal 0.0-0.1 [facility] Comment on above: Performed By: #### L IPID, BMP #### [facility] [address] [place] [address] Dr. Jag Waldrop Basophils/100 WBC (Bld) 0.8 % Normal 0.2-2.0 [facility] Comment on above: Performed By: #### L IPID, BMP #### [facility] [address] [place] [address] Dr. Jag Waldrop EO # 0.3 103/ul Normal 0.0-0.7 [facility] Comment on above: Performed By: #### L IPID, BMP #### [facility] [address] [place] [address] Dr. Jag Waldrop Eosinophils/100 WBC (Bld) 3.8 % Normal 0.9-7.0 [facility] Comment on above: Performed By: #### L IPID, BMP #### [facility] [address] [place] [address] Dr. Jag Waldrop Erythrocyte distribution width (RBC) [Ratio] 13.2 % Normal 11.0-15.0 [facility] Comment on above: Performed By: #### L IPID, BMP #### [facility] [address] [place] [address] Dr. Jag Waldrop Hematocrit (Bld) [Volume fraction] 34.8 % Critically low 36.0-48.0 [facility] Comment on above: Performed By: #### L IPID, BMP #### [facility] [address] [place] [address] Dr. Jag Waldrop Hemoglobin (Bld) [Mass/Vol] 10.6 g/dL Critically low 12.0-16.0 [facility] Comment on above: Performed By: #### L IPID, BMP #### [facility] [address] [place] [address] Dr. Jag Waldrop IG # 0.02 10e3/ul Normal 0.00-0.03 [facility] Comment on above: Performed By: #### L IPID, BMP #### [facility] [address] [place] [address] Dr. Jag Waldrop IG % 0.3 % Normal 0.0-0.5 [facility] Comment on above: Performed By: #### L IPID, BMP #### [facility] [address] [place] [address] Dr. Jag Waldrop LYMPH # 1.7 103/ul Normal 1.2-3.8 [facility] Comment on above: Performed By: #### L IPID, BMP #### [facility] [address] [place] [address] Dr. Jag Waldrop Lymphocytes/100 WBC (Bld) 23.8 % Normal 20.5-60.0 [facility] Comment on above: Performed By: #### L IPID, BMP #### [facility] [address] [place] [address] Dr. Jag Waldrop MANUAL DIFF REQ NO Normal [facility] Comment on above: Performed By: #### L IPID, BMP #### [facility] [address] [place] [address] Dr. Jag Waldrop MCH (RBC) [Entitic mass] 29.1 pg Normal 26.7-34.0 [facility] Comment on above: Performed By: #### L IPID, BMP #### [facility] [address] [place] [address] Dr. Jag Waldrop MCHC (RBC) [Mass/Vol] 30.5 g/dL Normal 29.9-35.2 [facility] Comment on above: Performed By: #### L IPID, BMP #### [facility] [address] [place] [address] Dr. Jag Waldrop MCV (RBC) [Entitic vol] 95.6 fL Normal 81.0-99.0 [facility] Comment on above: Performed By: #### L IPID, BMP #### [facility] [facility] [address] [place] [address] Dr. Jag Waldrop MONO # 0.7 103/ul Normal 0.3-0.8 [facility] Comment on above: Performed By: #### L IPID, BMP #### [facility] [address] [place] [address] Dr. Jag Waldrop Monocytes/100 WBC (Bld) 9.3 % Normal 1.7-12.0 [facility] Comment on above: Performed By: #### L IPID, BMP #### [facility] [address] [place] [address] Dr. Jag Waldrop NEUT # 4.4 103/ul Normal 1.4-6.5 [facility] Comment on above: Performed By: #### L IPID, BMP #### [facility] [address] [place] [address] Dr. Jag Waldrop Neutrophils/100 WBC (Bld) 62.0 % Normal 43.0-75.0 [facility] Comment on above: Performed By: #### L IPID, BMP #### [facility] [address] [place] [address] Dr. Jag Waldrop Platelet mean volume (Bld) [Entitic vol] 11.5 fL Normal 9.5-13.5 [facility] Comment on above: Performed By: #### L IPID, BMP #### [facility] [address] [address] [address] Jag Waldrop PLT 235 103/ul Normal 150-450 [facility] Comment on above: Performed By: #### L IPID, BMP #### [facility] [address] [address] [address] Jag Waldrop RBC 3.64 106/ul Critically low 4.20-5.40 [facility] Comment on above: Performed By: #### L IPID, BMP #### [facility] [address] [address] [address] Jag Waldrop WBC 7.1 103/ul Normal 4.0-11.0 [facility] Comment on above: Performed By: #### L IPID, BMP #### [facility] [address] [place] [address] Dr. Jag Waldrop CRPon 12-21-2021 CRP 1.1 mg/dL Critically high <=1.0 [facility] Comment on above: Performed By: #### B MP #### [facility] [address] [address] [address] Jag Waldrop [facility]on SARS-CoV-2 (COVID-19) RNA PRINCE+probe Ql (Unsp spec) Not detected Normal NOT DETECTED [facility] Comment on above: Result Comment: This test is not yet approved or cleared by the [place] FDA. When there are no FDA-approved or cleared tests available, and other criteria are met, FDA can make tests available under an emergency access mechanism called an Emergency Use Authorization (EUA). The EUA for this test is supported by the Drawer Hardware Worker of Health and Human Service's (HHS's) declaration [...] #### L IPID, BMP #### [facility] [address] [place] [address] Dr. Jag Waldrop PROF CHEM 8 (BAS METB)on Anion gap [Moles/Vol] 13.3 mmol/L Normal [facility] Comment on above: Performed By: #### B MP #### [facility] [address] [place] [address] Dr. Jag Waldrop Calcium [Mass/Vol] 8.7 mg/dL Normal 8.5-10.1 [facility] Comment on above: Performed By: #### B MP #### [facility] [address] [place] [address] Dr. Jag Waldrop Chloride [Moles/Vol] 107 mmol/L Normal 98-107 [facility] Comment on above: Performed By: #### B MP #### [facility] [address] [place] [address] Dr. Jag Waldrop CO2 [Moles/Vol] 23.2 mmol/L Normal 21.0-32.0 [facility] Comment on above: Performed By: #### B MP #### [facility] [address] [place] [address] Dr. Jag Waldrop Creatinine [Mass/Vol] 1.55 mg/dL Critically high 0.55-1.02 [facility] Comment on above: Performed By: #### B MP #### [facility] [address] [place] [address] Dr. Jag Waldrop EGFR-AF PALAUAN 43 mL/min/1.73m2 Critically low >=60 [facility] Comment on above: Performed By: #### B MP #### [facility] [address] [place] [address] Dr. Jag Waldrop EGFR-NON AF PALAUAN 35 mL/min/1.73m2 Critically low >=60 [facility] Comment on above: Performed By: #### B MP #### [facility] [address] [address] [address] Jag Waldrop Glucose [Mass/Vol] 123 mg/dL Critically high 74-106 T [facility] Comment on above: Performed By: #### B MP #### [facility] [address] [address] [address] Jag Waldrop Potassium [Moles/Vol] 4.5 mmol/L Normal 3.5-5.1 [facility] Comment on above: Performed By: #### B MP #### [facility] [address] [place] [address] Dr. Jag Waldrop Sodium [Moles/Vol] 139 mmol/L Normal 136-145 [facility] Comment on above: Performed By: #### B MP #### [facility] [address] [place] [address] Dr. Jag Waldrop Urea nitrogen [Mass/Vol] 36.0 mg/dL Critically high 7.0-18.0 [facility] Comment on above: Performed By: #### B MP #### [facility] [address] [place] [address] Dr. Jag Waldrop Urea nitrogen/Creatinine [Mass ratio] 23.2 mg/mg Normal [facility] Comment on above: Performed By: #### B MP #### [facility] [address] [place] [address] Dr. Jag Waldrop SED RATE [facility] 2021 SED RATE 26 mm/hr Normal <=30 [facility] Comment on above: Performed By: #### S EDR #### [facility] [address] [place] [address] Dr. Jag Waldrop XR CHEST 2 Von [...] by: ALEX Baugh: 2021-12-21 18:35 Normal [facility] OVA AND PARASITE EXAMINATION on 12-06-2021 Ova + Parasite Exam Final report Normal [facility] Comment on above: Result Comment: Thes e results were obtained using wet preparation(s) and trichrome stained smear. This test does not include testing for Cryptosporidium parvum, Cyclospora, or Microsporidia. Performed By: #### L IPID, BMP #### [facility] [address] [place] [address] Dr. Jag Waldrop Result 1 Comment Normal [facility] Comment on above: Result Comment: No o va, cysts, or parasites seen. . One negative specimen does not rule out the possibility of a parasitic infection. Performed By: #### L IPID, BMP #### [facility] [address] [place] [address] Dr. Jag Waldrop STOOL CULTUREon 12-05-2021 Campylobacter Culture Final report Normal [facility] Comment on above: Performed By: #### C XSTOOL #### [facility] [address] [place] [address] Dr. Jag Waldrop E coli Shiga Toxin EIA Negative Normal Negative [facility] Comment on above: Performed By: #### C XSTOOL #### [facility] [address] [place] [address] Dr. Jag Waldrop Result 1 Comment Normal [facility] Comment on above: Result Comment: No S almonella or Shigella recovered. Performed By: #### C XSTOOL #### [facility] [address] [place] [address] Dr. Jag Waldrop Result Comment: No C ampylobacter species isolated. Salmonella/Shigella Screen Final report Normal [facility] Comment on above: Performed By: #### C XSTOOL #### [facility] [address] [place] [address] Dr. Jag Waldrop GI PANEL (PCR)on 11-30-2021 Adenovirus F 40/41 Not detected Normal NOT DETECTED [facility] Comment on above: Performed By: #### E RUR #### [facility] [address] [place] [address] Dr. Jag Waldrop Astrovirus Not detected Normal NOT DETECTED [facility] Comment on above: Performed By: #### E RUR #### [facility] [address] [place] [address] Dr. Jag Waldrop C. Diff toxin A/B Detected Critically abnormal NOT DETECTED [facility] Comment on above: Performed By: #### E RUR #### [facility] [address] [place] [address] Dr. Jag Waldrop Campylobacter Not detected Normal NOT DETECTED [facility] Comment on above: Performed By: #### E RUR #### [facility] [address] [place] [address] Dr. Jag Waldrop Cryptosporidium Not detected Normal NOT DETECTED [facility] Comment on above: Performed By: #### E RUR #### [facility] [address] [place] [address] Dr. Jag Waldrop Cyclos. Cayetanensis Not detected Normal NOT DETECTED [facility] Comment on above: Performed By: #### E RUR #### [facility] [address] [place] [address] Dr. Jag Waldrop E. Coli O157 Not Applicable Normal Not Applicable [facility] Comment on above: Performed By: #### E RUR #### [facility] [address] [place] [address] Dr. Jag Waldrop E. histolytica Not detected Normal NOT DETECTED [facility] Comment on above: Performed By: #### E RUR #### [facility] [address] [place] [address] Dr. Jag Waldrop EAEC Not detected Normal NOT DETECTED [facility] Comment on above: Performed By: #### E RUR #### [facility] [address] [place] [address] Dr. Jag Waldrop EIEC Not detected Normal NOT DETECTED [facility] Comment on above: Performed By: #### E RUR #### [facility] [address] [place] [address] Dr. Jag Waldrop EPEC Not detected Normal NOT DETECTED [facility] Comment on above: Performed By: #### E RUR #### [facility] [address] [place] [address] Dr. Jag Waldrop ETEC Not detected Normal NOT DETECTED [facility] Comment on above: Performed By: #### E RUR #### [facility] [address] [address] [address] Jag Zuniga. Lamblia Not detected Normal NOT DETECTED [facility] Comment on above: Performed By: #### E RUR #### [facility] [address] [place] [address] Dr. Jag TANG CONTROLS PASSED Normal [facility] Comment on above: Performed By: #### E RUR #### [facility] [address] [place] [address] Dr. Jag TEJEDA HEADER GI PANEL BACTERIA Normal T [facility] Comment on above: Performed By: #### E RUR #### [facility] [address] [place] [address] Dr. Jag SANCHEZ ECOLI GI PANEL DIARRHEAGEN IC E.COLI / SHIGELLA Normal [facility] Comment on above: Performed By: #### E RUR #### [facility] [address] [place] [address] Dr. Jag SANCHEZ INFO SEE BELOW Normal [facility] Comment on above: Result Comment: EAEC - Enteroaggregative E. Coli EPEC- Enteropathogenic E. Coli ETEC- Enterotoxigenic E. Coli lt/st STEC- Shigella-like toxin-producing E. Coli stx1/stx2 EIEC- Shigella/Enteroinvasive E. Coli Performed By: #### E RUR #### [facility] [address] [place] [address] Dr. Jag SANCHEZ PARASITES GI PANEL PARASITES Normal [facility] Comment on above: Performed By: #### E RUR #### [facility] [address] [place] [address] Dr. Jag SANCHEZ VIRUS GI PANEL VIRUSES Normal [facility] Comment on above: Performed By: #### E RUR #### [facility] [address] [place] [address] Dr. Jag Waldrop Norovirus GI/GII Not detected Normal NOT DETECTED [facility] Comment on above: Performed By: #### E RUR #### [facility] [address] [place] [address] Dr. Jag Waldrop P. Shigelloides Not detected Normal NOT DETECTED [facility] Comment on above: Performed By: #### E RUR #### [facility] [address] [place] [address] Dr. Jag Waldrop Rotavirus A Not detected Normal NOT DETECTED [facility] Comment on above: Performed By: #### E RUR #### [facility] [address] [place] [address] Dr. Jag Waldrop Salmonella Not detected Normal NOT DETECTED [facility] Comment on above: Performed By: #### E RUR #### [facility] [address] [place] [address] Dr. Jag Waldrop Sapovirus Not detected Normal NOT DETECTED [facility] Comment on above: Performed By: #### E RUR #### [facility] [address] [place] [address] Dr. Jag Waldrop STEC Not detected Normal NOT DETECTED [facility] Comment on above: Performed By: #### E RUR #### [facility] [address] [place] [address] Dr. Jag Waldrop Vibrio Not detected Normal NOT DETECTED [facility] Comment on above: Performed By: #### E RUR #### [facility] [address] [place] [address] Dr. Jag Waldrop Vibrio Cholera Not detected Normal NOT DETECTED [facility] Comment on above: Performed By: #### E RUR #### [facility] [address] [place] [address] Dr. Jag Waldrop Y. Enterocolitica Not detected Normal NOT DETECTED [facility] Comment on above: Performed By: #### E RUR #### [facility] [address] [place] [address] Dr. Jag Waldrop OCC BLD IMMUNO SCREENon 11-14 OCCULT BLOOD Negative Normal NEGATIVE [facility] Comment on above: Performed By: #### L IPID, BMP #### [facility] [address] [address] [address] Jag Waldrop PROF CHEM 8 (BAS METB)on Anion gap [Moles/Vol] 15.5 mmol/L Normal [facility] Comment on above: Performed By: #### P OCGLUC #### [facility] [address] [address] [address] Jag Waldrop Calcium [Mass/Vol] 9.1 mg/dL Normal 8.5-10.1 [facility] Comment on above: Performed By: #### P OCGLUC #### [facility] [address] [place] [address] Dr. Jag Waldrop Chloride [Moles/Vol] 106 mmol/L Normal 98-107 [facility] Comment on above: Performed By: #### P OCGLUC #### [facility] [address] [address] [address] Jag Waldrop CO2 [Moles/Vol] 25.4 mmol/L Normal 21.0-32.0 [facility] Comment on above: Performed By: #### P OCGLUC #### [facility] [address] [address] [address] Jag Waldrop Creatinine [Mass/Vol] 1.18 mg/dL Critically high 0.55-1.02 [facility] Comment on above: Performed By: #### P OCGLUC #### [facility] [address] [address] [address] Jag Waldrop EGFR-AF PALAUAN 59 mL/min/1.73m2 Critically low >=60 [facility] Comment on above: Performed By: #### P OCGLUC #### [facility] [address] [place] [address] Dr. Jag Waldrop EGFR-NON AF PALAUAN 48 mL/min/1.73m2 Critically low >=60 [facility] Comment on above: Performed By: #### P OCGLUC #### [facility] [address] [place] [address] Dr. Jag Waldrop Glucose [Mass/Vol] 141 mg/dL Critically high 74-106 T [facility] Comment on above: Performed By: #### P OCGLUC #### [facility] [address] [place] [address] Dr. Jag Waldrop Potassium [Moles/Vol] 3.9 mmol/L Normal 3.5-5.1 [facility] Comment on above: Performed By: #### P OCGLUC #### [facility] [address] [place] [address] Dr. Jag Waldrop Sodium [Moles/Vol] 143 mmol/L Normal 136-145 [facility] Comment on above: Performed By: #### P OCGLUC #### [facility] [address] [place] [address] Dr. Jag Waldrop Urea nitrogen [Mass/Vol] 22.0 mg/dL Critically high 7.0-18.0 [facility] Comment on above: Performed By: #### P OCGLUC #### [facility] [address] [place] [address] Dr. Jag Waldrop Urea nitrogen/Creatinine [Mass ratio] 18.6 mg/mg Normal [facility] Comment on above: Performed By: #### P OCGLUC #### [facility] [address] [place] [address] Dr. Jag Waldrop XR KUB 1 VIEWon [...] ALEX ALLEN Date: 2021-10-29 09:01 Normal [facility] CULTURE URINEon 10-28-2021 CULTURE URINE Culture Observations : LIGHT GROWTH OF MIXED GENITAL SANDEE. NO POTENTIAL PATHOGENS SEEN. Normal [facility] Comment on above: Performed By: #### E RUR #### [facility] [address] [address] [address] Jag Waldrop GLYCOHEMOGLOBIN A1Con 2021 ADA RECOMMENDATION SEE BELOW Normal [facility] Comment on above: Result Comment: ADA RECOMMENDED LIMIT 4.0 - 6.0 ADA THERAPEUTIC TARGET < 7.0 ACTION SUGGESTED > 7.0 Performed By: #### E RUR #### [facility] [address] [address] [address] Jag Waldrop Glucose [Mass/Vol] 157 mg/dL Normal [facility] Comment on above: Performed By: #### E RUR #### [facility] [address] [place] [address] Dr. Jag Waldrop HbA1c (Bld) [Mass fraction] 7.1 % Critically high 4.5-6.2 [facility] Comment on above: Performed By: #### E RUR #### [facility] [address] [place] [address] Dr. Jag Waldrop LIPID PROFILEon 10-28-2021 CHOL-HDL RATIO NORM SEE BELOW Normal [facility] Comment on above: Result Comment: 3.3 - 4.4 LOW RISK 4.4 - 7.1 AVERAGE RISK 7.1 - 11.0 MODERATE RISK >11.0 HIGH RISK Performed By: #### P OCGLUC #### [facility] [address] [place] [address] Dr. Jag Waldrop Cholesterol [Mass/Vol] 150 mg/dL Normal <=200 [facility] Comment on above: Performed By: #### P OCGLUC #### [facility] [address] [place] [address] Dr. Jag Waldrop Cholesterol in HDL [Mass/Vol] 39 mg/dL Critically low 40-60 [facility] Comment on above: Performed By: #### P OCGLUC #### [facility] [address] [place] [address] Dr. Jag Waldrop Cholesterol in LDL [Mass/Vol] 82.6 mg/dL Normal [facility] Comment on above: Performed By: #### P OCGLUC #### [facility] [address] [place] [address] Dr. Jag Waldrop Cholesterol.total/Chol esterol in HDL [Mass ratio] 3.8 {ratio} Normal [facility] Comment on above: Performed By: #### P OCGLUC #### [facility] [address] [address] [address] Jag Waldrop HDL NORMAL > or = 60 mg/dl - LO W CARDIOVASCULAR RISK <40 mg/dl - HIGH CARDIOVASCULAR RISK Normal [facility] Comment on above: Performed By: #### P OCGLUC #### [facility] [address] [address] [address] Jag Waldrop LDL CALC NORMAL SEE BELOW Normal [facility] Comment on above: Result Comment: <100 mg/dl OPTIMAL 100 - 129 mg/dl NEAR OR ABOVE OPTIMAL 130 - 159 mg/dl BORDERLINE HIGH 160 - 189 mg/dl HIGH >190 mg/dl VERY HIGH Performed By: #### P OCGLUC #### [facility] [address] [address] [address] Jag Waldrop Triglyceride [Mass/Vol] 142 mg/dL Normal <=150 [facility] Comment on above: Performed By: #### P OCGLUC #### [facility] [address] [address] [address] Jag Waldrop VLDL CALC 28.4 mg/dL Normal [facility] Comment on above: Performed By: #### P OCGLUC #### [facility] [address] [address] [address] Jag Waldrop PROF CHEM 8 (BAS METB)on Anion gap [Moles/Vol] 16.0 mmol/L Normal [facility] Comment on above: Performed By: #### P OCGLUC #### [facility] [address] [address] [address] Jag Waldrop Calcium [Mass/Vol] 8.7 mg/dL Normal 8.5-10.1 [facility] Comment on above: Performed By: #### P OCGLUC #### [facility] [address] [address] [address] Jag Waldrop Chloride [Moles/Vol] 108 mmol/L Critically high 98-107 [facility] Comment on above: Performed By: #### P OCGLUC #### [facility] [address] [address] [address] Jag Waldrop CO2 [Moles/Vol] 22.1 mmol/L Normal 21.0-32.0 [facility] Comment on above: Performed By: #### P OCGLUC #### [facility] [address] [address] [address] Jag Waldrop Creatinine [Mass/Vol] 1.72 mg/dL Critically high 0.55-1.02 [facility] Comment on above: Performed By: #### P OCGLUC #### [facility] [address] [address] [address] Jag Waldrop EGFR-AF PALAUAN 38 mL/min/1.73m2 Critically low >=60 [facility] Comment on above: Performed By: #### P OCGLUC #### [facility] [address] [address] [address] Jag Waldrop EGFR-NON AF PALAUAN 31 mL/min/1.73m2 Critically low >=60 [facility] Comment on above: Performed By: #### P OCGLUC #### [facility] [address] [address] [address] Jag Waldrop Glucose [Mass/Vol] 144 mg/dL Critically high 74-106 [facility] Comment on above: Performed By: #### P OCGLUC #### [facility] [address] [address] [address] Jag Waldrop Potassium [Moles/Vol] 5.1 mmol/L Normal 3.5-5.1 [facility] Comment on above: Performed By: #### P OCGLUC #### [facility] [address] [address] [address] Jag Waldrop Sodium [Moles/Vol] 141 mmol/L Normal 136-145 [facility] Comment on above: Performed By: #### P OCGLUC #### [facility] [address] [address] [address] Jag Waldrop Urea nitrogen [Mass/Vol] 41.0 mg/dL Critically high 7.0-18.0 [facility] Comment on above: Performed By: #### P OCGLUC #### [facility] [address] [address] [address] Jag Waldrop Urea nitrogen/Creatinine [Mass ratio] 23.8 mg/mg Normal [facility] Comment on above: Performed By: #### P OCGLUC #### [facility] [address] [place] [address] Dr. Jag Waldrop UA (CLEAN/CATCH) AUTOMATION AND CONTROLS MANAGER/MICRO I F IND.on 10-28-2021 Bilirubin Ql (U) Negative Normal NEGATIVE [facility] Comment on above: Performed By: #### L IPID, BMP #### [facility] [address] [place] [address] Dr. Jag Waldrop Clarity (U) SL CLOUDY Abnormal CLEAR [facility] Comment on above: Performed By: #### L IPID, BMP #### [facility] [address] [place] [address] Dr. Jag Waldrop Color (U) LT. YELLOW Normal YELLOW [facility] Comment on above: Performed By: #### L IPID, BMP #### [facility] [address] [place] [address] Dr. Jag Waldrop Glucose Ql (U) Negative Normal NEGATIVE [facility] Comment on above: Performed By: #### L IPID, BMP #### [facility] [address] [place] [address] Dr. Jag Waldrop Hemoglobin Ql (U) TRACE-INTACT Abnormal NEGATIVE [facility] Comment on above: Performed By: #### L IPID, BMP #### [facility] [address] [place] [address] Dr. Jag Waldrop Ketones Ql (U) Negative Normal NEGATIVE [facility] Comment on above: Performed By: #### L IPID, BMP #### [facility] [address] [place] [address] Dr. Jag Waldrop LEUKOCYTES SMALL Abnormal NEGATIVE [facility] Comment on above: Performed By: #### L IPID, BMP #### [facility] [address] [place] [address] Dr. Jag Waldrop Nitrite Ql (U) Negative Normal NEGATIVE [facility] Comment on above: Performed By: #### L IPID, BMP #### [facility] [address] [place] [address] Dr. Jag Waldrop pH (U) 5.5 [pH] Normal 5-9 [facility] Comment on above: Performed By: #### L IPID, BMP #### [facility] [address] [place] [address] Dr. Jag Waldrop SPEC GRAVITY 1.020 Normal 1.005-<=1.0 25 [facility] Comment on above: Performed By: #### L IPID, BMP #### [facility] [address] [place] [address] Dr. Jag Waldrop UA PROTEIN Negative Normal NEGATIVE/ TRACE [facility] Comment on above: Performed By: #### L IPID, BMP #### [facility] [address] [place] [address] Dr. Jag Waldrop UR MICRO IND INDICATED Normal [facility] Comment on above: Performed By: #### L IPID, BMP #### [facility] [address] [place] [address] Dr. Jag Waldrop Urobilinogen Qn (U) 0.2 {Chris'U}/dL Normal 0.2 - 1. 0 [facility] Comment on above: Performed By: #### L IPID, BMP #### [facility] [address] [place] [address] Dr. Jag Waldrop URINE MICROSCOPIC ONLYon BACTERIA TRACE Abnormal NONE SEEN [facility] Comment on above: Performed By: #### L IPID, BMP #### [facility] [address] [place] [address] Dr. Jag Waldrop Bacteria identified Cx Nom (U) INDICATED Normal [facility] Comment on above: Performed By: #### L IPID, BMP #### [facility] [address] [place] [address] Dr. Jag Waldrop CAST NONE SEEN Normal NONE SEEN [facility] Comment on above: Performed By: #### L IPID, BMP #### [facility] [address] [place] [address] Dr. Jag Waldrop Crystals LM Nom (Urine sed) NONE SEEN Normal NONE SEEN [facility] Comment on above: Performed By: #### L IPID, BMP #### [facility] [address] [place] [address] Dr. Jag Waldrop Epithelial cells LM Ql (Urine sed) RARE Normal NONE SEEN /RARE [facility] Comment on above: Performed By: #### L IPID, BMP #### [facility] [address] [place] [address] Dr. Jag Waldrop MUCOUS TRACE Abnormal NONE SEEN [facility] Comment on above: Performed By: #### L IPID, BMP #### [facility] [address] [place] [address] Dr. Jag Waldrop RBC 0-2 Normal 0-2 [facility] Comment on above: Performed By: #### L IPID, BMP #### [facility] [address] [place] [address] Dr. Jag Waldrop WBC 2-5 Abnormal NONE SEEN [facility] Comment on above: Performed By: #### L IPID, BMP #### [facility] [address] [place] [address] Dr. Jag Waldrop BNPon 10-02-2021 Natriuretic peptide B (Bld) [Mass/Vol] 52.0 pg/mL Normal <=900.0 [facility] Comment on above: Performed By: #### L IPID, BMP #### [facility] [address] [place] [address] Dr. Jag Waldrop CBC AUTO DIFFon 10-02-2021 BASO # 0.1 103/ul Normal 0.0-0.1 [facility] Comment on above: Performed By: #### P OCGLUC #### [facility] [address] [place] [address] Dr. Jag Waldrop Basophils/100 WBC (Bld) 0.8 % Normal 0.2-2.0 [facility] Comment on above: Performed By: #### P OCGLUC #### [facility] [address] [place] [address] Dr. Jag Waldrop EO # 0.2 103/ul Normal 0.0-0.7 [facility] Comment on above: Performed By: #### P OCGLUC #### [facility] [address] [address] [address] Jag Waldrop Eosinophils/100 WBC (Bld) 3.0 % Normal 0.9-7.0 [facility] Comment on above: Performed By: #### P OCGLUC #### [facility] [address] [address] [address] Jag Waldrop Erythrocyte distribution width (RBC) [Ratio] 14.2 % Normal 11.0-15.0 [facility] Comment on above: Performed By: #### P OCGLUC #### [facility] [address] [place] [address] Dr. Jag Waldrop Hematocrit (Bld) [Volume fraction] 35.9 % Critically low 36.0-48.0 [facility] Comment on above: Performed By: #### P OCGLUC #### [facility] [address] [place] [address] Dr. Jag Waldrop Hemoglobin (Bld) [Mass/Vol] 11.0 g/dL Critically low 12.0-16.0 [facility] Comment on above: Performed By: #### P OCGLUC #### [facility] [address] [place] [address] Dr. Jag Waldrop IG # 0.03 10e3/ul Normal 0.00-0.03 [facility] Comment on above: Performed By: #### P OCGLUC #### [facility] [address] [place] [address] Dr. Jag Waldrop IG % 0.4 % Normal 0.0-0.5 [facility] Comment on above: Performed By: #### P OCGLUC #### [facility] [address] [place] [address] Dr. Jag Waldrop LYMPH # 2.8 103/ul Normal 1.2-3.8 [facility] Comment on above: Performed By: #### P OCGLUC #### [facility] [address] [place] [address] Dr. Jag Waldrop Lymphocytes/100 WBC (Bld) 37.9 % Normal 20.5-60.0 [facility] Comment on above: Performed By: #### P OCGLUC #### [facility] [address] [place] [address] Dr. Jag Waldrop MANUAL DIFF REQ NO Normal [facility] Comment on above: Performed By: #### P OCGLUC #### [facility] [address] [place] [address] Dr. Jag Waldrop MCH (RBC) [Entitic mass] 28.7 pg Normal 26.7-34.0 [facility] Comment on above: Performed By: #### P OCGLUC #### [facility] [address] [place] [address] Dr. Jag Waldrop MCHC (RBC) [Mass/Vol] 30.6 g/dL Normal 29.9-35.2 [facility] Comment on above: Performed By: #### P OCGLUC #### [facility] [address] [place] [address] Dr. Jag Waldrop MCV (RBC) [Entitic vol] 93.7 fL Normal 81.0-99.0 [facility] Comment on above: Performed By: #### P OCGLUC #### [facility] [address] [place] [address] Dr. Jag Waldrop MONO # 0.5 103/ul Normal 0.3-0.8 [facility] Comment on above: Performed By: #### P OCGLUC #### [facility] [address] [place] [address] Dr. Jag Waldrop Monocytes/100 WBC (Bld) 7.4 % Normal 1.7-12.0 [facility] Comment on above: Performed By: #### P OCGLUC #### [facility] [address] [place] [address] Dr. Jag Waldrop NEUT # 3.7 103/ul Normal 1.4-6.5 [facility] Comment on above: Performed By: #### P OCGLUC #### [facility] [address] [place] [address] Dr. Jag Waldrop Neutrophils/100 WBC (Bld) 50.5 % Normal 43.0-75.0 [facility] Comment on above: Performed By: #### P OCGLUC #### [facility] [address] [address] [address] Jag Waldrop Platelet mean volume (Bld) [Entitic vol] 10.2 fL Normal 9.5-13.5 [facility] Comment on above: Performed By: #### P OCGLUC #### [facility] [address] [place] [address] Dr. Jag Waldrop PLT 261 103/ul Normal 150-450 [facility] Comment on above: Performed By: #### P OCGLUC #### [facility] [address] [place] [address] Dr. Jag Waldrop RBC 3.83 106/ul Critically low 4.20-5.40 [facility] Comment on above: Performed By: #### P OCGLUC #### [facility] [address] [place] [address] Dr. Jag Waldrop WBC 7.3 103/ul Normal 4.0-11.0 [facility] Comment on above: Performed By: #### P OCGLUC #### [facility] [address] [place] [address] Dr. Jag Waldrop POINT OF CARE GLUCOSEon 09-14 Glucose [Mass/Vol] 156 mg/dL Critically high 74-106 [facility] Comment on above: Performed By: #### P OCGLUC #### [facility] [address] [place] [address] Dr. Jag Waldrop Glucose [Mass/Vol] 304 mg/dL Critically high 74-106 [facility] Comment on above: Performed By: #### P OCGLUC #### [facility] [address] [place] [address] Dr. Jag Waldrop Glucose [Mass/Vol] 77 mg/dL Normal 74-106 [facility] Comment on above: Performed By: #### E RUR #### [facility] [address] [place] [address] Dr. Jag Waldrop Glucose [Mass/Vol] 136 mg/dL Critically high 74-106 [facility] Comment on above: Performed By: #### E RUR #### [facility] [address] [address] [address] Jag Waldrop Glucose [Mass/Vol] 73 mg/dL Critically low 74-106 [facility] Comment on above: Performed By: #### E RUR #### [facility] [address] [address] [address] Jag Waldrop PROF CHEM 8 (BAS METB)on Anion gap [Moles/Vol] 15.5 mmol/L Normal [facility] Comment on above: Performed By: #### P OCGLUC #### [facility] [address] [place] [address] Dr. Jag Waldrop Calcium [Mass/Vol] 8.3 mg/dL Critically low 8.5-10.1 [facility] Comment on above: Performed By: #### P OCGLUC #### [facility] [address] [place] [address] Dr. Jag Waldrop Chloride [Moles/Vol] 108 mmol/L Critically high 98-107 [facility] Comment on above: Performed By: #### P OCGLUC #### [facility] [address] [place] [address] Dr. Jag Waldrop CO2 [Moles/Vol] 18.9 mmol/L Critically low 21.0-32.0 [facility] Comment on above: Performed By: #### P OCGLUC #### [facility] [address] [place] [address] Dr. Jag Waldrop Creatinine [Mass/Vol] 1.43 mg/dL Critically high 0.55-1.02 [facility] Comment on above: Performed By: #### P OCGLUC #### [facility] [address] [place] [address] Dr. Jag Waldrop EGFR-AF PALAUAN 47 mL/min/1.73m2 Critically low >=60 [facility] Comment on above: Performed By: #### P OCGLUC #### [facility] [address] [address] [address] Jag Waldrop EGFR-NON AF PALAUAN 39 mL/min/1.73m2 Critically low >=60 [facility] Comment on above: Performed By: #### P OCGLUC #### [facility] [address] [address] [address] Jag Waldrop Glucose [Mass/Vol] 269 mg/dL Critically high 74-106 T [facility] Comment on above: Performed By: #### P OCGLUC #### [facility] [address] [address] [address] Jag Waldrop Potassium [Moles/Vol] 5.4 mmol/L Critically high 3.5-5.1 [facility] Comment on above: Performed By: #### P OCGLUC #### [facility] [address] [address] [address] Jag Waldrop Sodium [Moles/Vol] 137 mmol/L Normal 136-145 [facility] Comment on above: Performed By: #### P OCGLUC #### [facility] [address] [address] [address] Jag Waldrop Urea nitrogen [Mass/Vol] 40.0 mg/dL Critically high 7.0-18.0 [facility] Comment on above: Performed By: #### P OCGLUC #### [facility] [address] [address] [address] Jag Waldrop Urea nitrogen/Creatinine [Mass ratio] 28.0 mg/mg Normal [facility] Comment on above: Performed By: #### P OCGLUC #### [facility] [address] [address] [address] Jag Waldrop Anion gap [Moles/Vol] 14.0 mmol/L Normal [facility] Comment on above: Performed By: #### E RUR #### [facility] [address] [address] [address] Jag Waldrop Calcium [Mass/Vol] 8.9 mg/dL Normal 8.5-10.1 [facility] Comment on above: Performed By: #### E RUR #### [facility] [address] [address] [address] Jag Waldrop Chloride [Moles/Vol] 110 mmol/L Critically high 98-107 [facility] Comment on above: Performed By: #### E RUR #### [facility] [address] [address] [address] Jag Waldrop CO2 [Moles/Vol] 21.1 mmol/L Normal 21.0-32.0 [facility] Comment on above: Performed By: #### E RUR #### [facility] [address] [address] [address] Jag Waldrop Creatinine [Mass/Vol] 1.32 mg/dL Critically high 0.55-1.02 [facility] Comment on above: Performed By: #### E RUR #### [facility] [address] [place] [address] Dr. Jag Waldrop EGFR-AF PALAUAN 52 mL/min/1.73m2 Critically low >=60 [facility] Comment on above: Performed By: #### E RUR #### [facility] [address] [place] [address] Dr. Jag Waldrop EGFR-NON AF PALAUAN 43 mL/min/1.73m2 Critically low >=60 [facility] Comment on above: Performed By: #### E RUR #### [facility] [address] [address] [address] Jag Waldrop Glucose [Mass/Vol] 79 mg/dL Normal 74-106 [facility] Comment on above: Performed By: #### E RUR #### [facility] [address] [address] [address] Jag Waldrop Potassium [Moles/Vol] 6.1 mmol/L Critically high 3.5-5.1 [facility] Comment on above: Result Comment: Test Repeated. Critical Value Verified Performed By: #### E RUR #### [facility] [address] [place] [address] Dr. Jag Waldrop Sodium [Moles/Vol] 140 mmol/L Normal 136-145 [facility] Comment on above: Performed By: #### E RUR #### [facility] [address] [place], [place] [address] Dr. Jag Waldrop Urea nitrogen [Mass/Vol] 45.0 mg/dL Critically high 7.0-18.0 [facility] Comment on above: Performed By: #### E RUR #### [facility] [address] [place], [place] [address] Dr. Jag Waldrop Urea nitrogen/Creatinine [Mass ratio] 34.1 mg/mg Normal [facility] Comment on above: Performed By: #### E RUR #### [facility] [address] [address] [address] Jag Waldrop BASIC METABOLIC PANELon 08-14 Calcium [Mass/Vol] 8.9 mg/dL Normal 8.6-10.3 [facility] Comment on above: Order Comment: No: D o not add to previous draw Performed By: #### 5 [id number], [id number] #### [facility] [address] [place] [address], [place] Chloride [Moles/Vol] 105 mmol/L Normal 98-107 [facility] Comment on above: Order Comment: No: D o not add to previous draw Performed By: #### 5 6101, 08085 #### [facility] [address] [place] [address], [place] CO2 [Moles/Vol] 26 mmol/L Normal 21-31 [facility] Comment on above: Order Comment: No: D o not add to previous draw Performed By: #### 5 [id number], [id number] #### [facility] [address] [place] [address], [place] Creatinine [Mass/Vol] 0.99 mg/dL Normal 0.60-1.20 [facility] Comment on above: Order Comment: No: D o not add to previous draw Performed By: #### 5 6101, 67131 #### [facility] [address] [place] [address], [place] GFR/1.73 sq M predicted among blacks MDRD (S/P/Bld) [Vol rate/Area] mL/min/{1.73_m2} Normal >60 [facility] Comment on above: Order Comment: No: D o not add to previous draw Performed By: #### 5 610, 57466 #### [facility] [address] [place] [address], [place] GFR/1.73 sq M predicted among non-blacks MDRD (S/P/Bld) [Vol rate/Area] mL/min/{1.73_m2} Normal >60 [facility] Comment on above: Order Comment: No: D o not add to previous draw Performed By: #### 5 610, 56536 #### [facility] [address] [place] [address], [place] Glucose [Mass/Vol] 145 mg/dL High 70-100 [facility] Comment on above: Order Comment: No: D o not add to previous draw Performed By: #### 5 610, 42008 #### [facility] [address] [place] [address], [place] Potassium [Moles/Vol] 3.7 mmol/L Normal 3.5-5.1 [facility] Comment on above: Order Comment: No: D o not add to previous draw Performed By: #### 5 610, 25092 #### [facility] [address] [place] [address], [place] Sodium [Moles/Vol] 139 mmol/L Normal 136-145 [facility] Comment on above: Order Comment: No: D o not add to previous draw Performed By: #### 5 610, 82389 #### [facility] [address] [place] [address], [place] Urea nitrogen [Mass/Vol] 26 mg/dL High 7-25 [facility] Comment on above: Order Comment: No: D o not add to previous draw Performed By: #### 5 610, 66393 #### [facility] [address] [place] [address], [facility] CBC W/DIFFon 08-25-2018 ABS BASOPHILS 0.0 10*3/uL Normal 0.0-0.2 [facility] Comment on above: Order Comment: No: D o not add to previous draw Performed By: #### 5 610, 86409 #### [facility] [address] [facility] [place] [address], [facility] ABS IMM GRANS 0.0 10*3/uL Normal 0.0-0.2 [facility] Comment on above: Order Comment: No: D o not add to previous draw Performed By: #### 5 610, 12879 #### [facility] [address] [place] [address], [facility] ABS NEUTROPHILS 2.3 10*3/uL Normal 1.6-7.6 [facility] Comment on above: Order Comment: No: D o not add to previous draw Performed By: #### 5 610, 39105 #### [facility] [address] [place] [address], [facility] Basophils/100 WBC (Bld) 0.3 % Normal 0.0-1.0 [facility] Comment on above: Order Comment: No: D o not add to previous draw Performed By: #### 5 610, 29854 #### [facility] [address] [place] [address], [facility] Eosinophils (Bld) [#/Vol] 0.0 10*3/uL Normal 0.0-0.5 [facility] Comment on above: Order Comment: No: D o not add to previous draw Performed By: #### 5 610, 12671 #### [facility] [address] [facility] [place] [place] [address], [facility] Eosinophils/100 WBC (Bld) 0.0 % Normal 0.0-6.0 [facility] Comment on above: Order Comment: No: D o not add to previous draw Performed By: #### 5 610, 87571 #### [facility] [address] Erythrocyte distribution width (RBC) [Ratio] 13.3 % Normal 11.5-15.0 [facility] Comment on above: Order Comment: No: D o not add to previous draw Performed By: #### 5 6100, 03062 #### [facility] [address] [place] [address], [facility] Hematocrit (Bld) [Volume fraction] 37.7 % Normal 36.0-45.0 [facility] Comment on above: Order Comment: No: D o not add to previous draw Performed By: #### 5 6100, 39495 #### [facility] [address] [place] [address], [facility] Hemoglobin (Bld) [Mass/Vol] 12.1 g/dL Normal 12.0-15.0 [facility] Comment on above: Order Comment: No: D o not add to previous draw Performed By: #### 5 6100, 63842 #### [facility] [address] [facility] [place] [address], [facility] IMMATURE GRANS 0.2 % Normal 0.0-1.0 [facility] Comment on above: Order Comment: No: D o not add to previous draw Performed By: #### 5 6100, 47348 #### [facility] [address] [place] [address], [facility] Lymphocytes (Bld) [#/Vol] 3.0 10*3/uL Normal 1.2-4.0 [facility] Comment on above: Order Comment: No: D o not add to previous draw Performed By: #### 5 6100, 75315 #### [facility] [address] [place] [address], [facility] Lymphocytes/100 WBC (Bld) 52.0 % High 20.0-45.0 [facility] Comment on above: Order Comment: No: D o not add to previous draw Performed By: #### 5 6100, 87227 #### [facility] [address] [place] [id number], [facility] MCH (RBC) [Entitic mass] 28.7 pg Normal 27.0-33.0 [facility] Comment on above: Order Comment: No: D o not add to previous draw Performed By: #### 5 6100, 02748 #### [facility] [address] [place] [id number], [facility] MCHC (RBC) [Mass/Vol] 32.1 g/dL Normal 32.0-35.0 [facility] Comment on above: Order Comment: No: D o not add to previous draw Performed By: #### 5 6100, 43967 #### [facility] [address] [place] [id number], [facility] MCV (RBC) [Entitic vol] 89.3 fL Normal 82.0-98.0 [facility] Comment on above: Order Comment: No: D o not add to previous draw Performed By: #### 5 6100, 05837 #### [facility] [address] [place] [address], [facility] Monocytes (Bld) [#/Vol] 0.5 10*3/uL Normal 0.1-1.0 [facility] Comment on above: Order Comment: No: D o not add to previous draw Performed By: #### 5 6100, 17664 #### [facility] [address] [place] [id number], [facility] MONOS 7.9 % Normal 5.0-12.0 [facility] Comment on above: Order Comment: No: D o not add to previous draw Performed By: #### 5 6100, 92541 #### [facility] [address] [place] [id number], [facility] Neutrophils/100 WBC (Bld) 39.6 % Low 40.0-72.0 [facility] Comment on above: Order Comment: No: D o not add to previous draw Performed By: #### 5 610, 33551 #### [facility] [address] [place] [address], [facility] Nucleated RBC/100 WBC (Bld) [Ratio] 0 % Normal 0-0 [facility] Comment on above: Order Comment: No: D o not add to previous draw Performed By: #### 5 6100, 86743 #### [facility] [address] [place] [address], [place] PLAT CNT 236 10*3/uL Normal 150-400 [facility] Comment on above: Order Comment: No: D o not add to previous draw Performed By: #### 5 610, 24723 #### [facility] [address] [place] [id number], [facility] RBC (Bld) [#/Vol] 4.22 10*6/uL Normal 3.80-5.00 [facility] Comment on above: Order Comment: No: D o not add to previous draw Performed By: #### 5 6100, 77760 #### [facility] [address] [facility] [place] [address], [facility] WBC (Bld) [#/Vol] 5.85 10*3/uL Normal 4.00-10.60 [facility] Comment on above: Order Comment: No: D o not add to previous draw Performed By: #### 5 610, 91785 #### [facility] [address] [place] [id number], [facility] POC GLUCOSE LABon 08-25-2018 Glucose [Mass/Vol] 180 mg/dL High 70-100 [facility] Comment on above: Performed By: #### 5 610, 19265 #### [facility] [address] [place] [address], [place] Glucose [Mass/Vol] 129 mg/dL High 70-100 [facility] Comment on above: Performed By: #### 5 610, 76841 #### [facility] [address] [place] [address], [facility] Glucose [Mass/Vol] 132 mg/dL High 70-100 [facility] Comment on above: Performed By: #### 5 0608 #### [facility] [address] [place] [address], [facility] UFH HEPARIN ASSAYon 08-26-19 19 UNFRACTIONATED HEPARIN <0.10 Critically low 0.30-0.70 [facility] Comment on above: Result Comment: Betty roxaban and Apixaban will interfere with the anti Xa assay used to monitor UFH and LMWH. RESULTS CHECKED AND CALLED. ACCURATELY READ BACK BY JANENE ZAMARRIPA RN AT 0554 Performed By: #### 5 [id number], [id number] #### [facility] [address] [place] [address], [facility] BASIC METABOLIC PANELon 08-14 Calcium [Mass/Vol] 8.5 mg/dL Low 8.6-10.3 [facility] Comment on above: Order Comment: No: D o not add to previous draw Performed By: #### 5 [id number] #### [facility] [address] [facility] [place] [address], [facility] Chloride [Moles/Vol] 104 mmol/L Normal 98-107 [facility] Comment on above: Order Comment: No: D o not add to previous draw Performed By: #### 5 [id number] #### [facility] [address] [place] [address], [place] CO2 [Moles/Vol] 27 mmol/L Normal 21-31 [facility] Comment on above: Order Comment: No: D o not add to previous draw Performed By: #### 5 [id number] #### [facility] [address] [place] [address], [facility] Creatinine [Mass/Vol] 1.13 mg/dL Normal 0.60-1.20 [facility] Comment on above: Order Comment: No: D o not add to previous draw Performed By: #### 5 [id number] #### [facility] [address] [place] [address], [place] GFR/1.73 sq M predicted among blacks MDRD (S/P/Bld) [Vol rate/Area] mL/min/{1.73_m2} Normal >60 [facility] Comment on above: Order Comment: No: D o not add to previous draw Performed By: #### 5 [id number] #### [facility] [address] [place] [address], [place] GFR/1.73 sq M predicted among non-blacks MDRD (S/P/Bld) [Vol rate/Area] 52 ml/min/1.73sq m Abnormal >60 [facility] Comment on above: Order Comment: No: D o not add to previous draw Performed By: #### 5 [id number] #### [facility] [address] [place] [address], [place] Glucose [Mass/Vol] 131 mg/dL High 70-100 [facility] Comment on above: Order Comment: No: D o not add to previous draw Performed By: #### 5 [id number] #### [facility] [address] [place] [address], [place] Potassium [Moles/Vol] 3.9 mmol/L Normal 3.5-5.1 [facility] Comment on above: Order Comment: No: D o not add to previous draw Performed By: #### 5 [id number] #### [facility] [address] [place] [address], [place] Sodium [Moles/Vol] 141 mmol/L Normal 136-145 [facility] Comment on above: Order Comment: No: D o not add to previous draw Performed By: #### 5 [id number] #### [facility] [address] [place] [address], [place] Urea nitrogen [Mass/Vol] 28 mg/dL High 7-25 [facility] Comment on above: Order Comment: No: D o not add to previous draw Performed By: #### 5 [id number] #### [facility] [address] CBC COMPLETE BLOOD COUNTon - Erythrocyte distribution width (RBC) [Ratio] 13.5 % Normal 11.5-15.0 [facility] Comment on above: Order Comment: No: D o not add to previous draw Performed By: #### 5 [id number] #### [facility] [address] Hematocrit (Bld) [Volume fraction] 37.1 % Normal 36.0-45.0 [facility] Comment on above: Order Comment: No: D o not add to previous draw Performed By: #### 5 [id number] #### [facility] [address] Hemoglobin (Bld) [Mass/Vol] 12.2 g/dL Normal 12.0-15.0 [facility] Comment on above: Order Comment: No: D o not add to previous draw Performed By: #### 5 [id number] #### [facility] [address] [facility] [place] [address], [facility] MCH (RBC) [Entitic mass] 28.8 pg Normal 27.0-33.0 [facility] Comment on above: Order Comment: No: D o not add to previous draw Performed By: #### 5 [id number] #### [facility] [address] [place] [address], [facility] MCHC (RBC) [Mass/Vol] 32.9 g/dL Normal 32.0-35.0 [facility] Comment on above: Order Comment: No: D o not add to previous draw Performed By: #### 5 [id number] #### [facility] [address] [place] [id number], [facility] MCV (RBC) [Entitic vol] 87.7 fL Normal 82.0-98.0 [facility] Comment on above: Order Comment: No: D o not add to previous draw Performed By: #### 5 [id number] #### [facility] [address] [facility] [place] [address], [facility] Nucleated RBC/100 WBC (Bld) [Ratio] 0 % Normal 0-0 [facility] Comment on above: Order Comment: No: D o not add to previous draw Performed By: #### 5 [id number] #### [facility] [address] [facility] [place] [address], [facility] PLAT CNT 251 10*3/uL Normal 150-400 [facility] Comment on above: Order Comment: No: D o not add to previous draw Performed By: #### 5 [id number] #### [facility] [address] [facility] [place] [address], [facility] RBC (Bld) [#/Vol] 4.23 10*6/uL Normal 3.80-5.00 [facility] Comment on above: Order Comment: No: D o not add to previous draw Performed By: #### 5 [id number] #### [facility] [address] [facility] [place] [address], [facility] WBC (Bld) [#/Vol] 8.42 10*3/uL Normal 4.00-10.60 [facility] Comment on above: Order Comment: No: D o not add to previous draw Performed By: #### 5 [id number] #### [facility] [address] Cardiovascular Lab Reporton 08-24-2018 Cardiovascular Lab Report [facility] Patient Name: Sahra [facility] A MR #: [id number] Department of Physician: Marshall Torres M.D. Division of Service Date: 08/23/2018 Cardiology Birthdate: 1970 Adult Cardiovascular Room #: 3AB [id number] [place] [address] Cardiovascular Laboratory Report FINAL IMPRESSION: 1. Mild [...] 5. Follow up with me in the [facility] post discharge. 6. Further recommendations deferred [...] the left radial artery was obtained. A 6-Slovenian Glidesheath was inserted without difficulty. Bilateral selective [...] 30% stenosis adjacent to a prominent septal drop clipper. There are luminal irregularities throughout the remainder [...] Godoy M.D. Date Trans: 08/24/2018 06:37 A/yadira [id number] cc: Geovanni Brunner D.O. [address] [place] [address] [address] [facility] [address] Normal [facility] HIP RIGHT 1 OR 2 VWS WITH PE LVISon 08-24-2018 HIP RIGHT 1 OR 2 VWS WITH PELVIS [facility] Department of Radiology [address] [place] [id number] Patient Name: SHERLY HUMPHREYS : 1970 Sex: F Age: Race: White Pt. Location: [id number] Patient Status: D Ordered Date: 08/24/2018 12:30:00 [...] findings. Electronically signed by:Kristy Jones. Transcribed by: [email or web address], User Resident: [email or web address] Electronically Signed by: KRISTY JONES @ 08/25/2018 08:05 PM I personally read this/these film(s) with this resident Normal [facility] Comment on above: Order Comment: No: D o not add to previous draw POC GLUCOSE LABon 08-24-2018 Glucose [Mass/Vol] 125 mg/dL High 70-100 [facility] Comment on above: Performed By: #### 5 [id number] #### [facility] [address] [place] [address], [place] Glucose [Mass/Vol] 150 mg/dL High 70-100 [facility] Comment on above: Performed By: #### 5 0608 #### [facility] [address] [place] [address], [place] Glucose [Mass/Vol] 119 mg/dL High 70-100 [facility] Comment on above: Performed By: #### 5 [id number] #### [facility] [address] UFH HEPARIN ASSAYon 08-25-19 19 UNFRACTIONATED HEPARIN <0.10 Critically low 0.30-0.70 [facility] Comment on above: Result Comment: Ragan roxaban and Apixaban will interfere with the anti Xa assay used to monitor UFH and LMWH. RESULTS CHECKED AND CALLED. ACCURATELY READ BACK BY JANENE ZAMARRIPA RN AT 0732 Performed By: #### 5 [id number] #### [facility] [address] APTTon 08-23-2018 aPTT Coag (Bld) [Time] 38.8 s High 25.0-35.0 [facility] Comment on above: Order Comment: [...] THIS PURPOSE. Performed By: #### 5 [id number], [id number] #### [facility] [address] [facility] [address] CBC COMPLETE BLOOD COUNTon 0 08-23-2018 Erythrocyte distribution width (RBC) [Ratio] 13.3 % Normal 11.5-15.0 [facility] Comment on above: Order Comment: No: D o not add to previous draw Performed By: #### 5 0608 #### [facility] [address] [facility] [address] Hematocrit (Bld) [Volume fraction] 41.4 % Normal 36.0-45.0 [facility] Comment on above: Order Comment: No: D o not add to previous draw Performed By: #### 5 [id number] #### [facility] [address] [place] [address], [place] Hemoglobin (Bld) [Mass/Vol] 13.8 g/dL Normal 12.0-15.0 [facility] Comment on above: Order Comment: No: D o not add to previous draw Performed By: #### 5 [id number] #### [facility] [address] [place] [id number], [facility] MCH (RBC) [Entitic mass] 29.0 pg Normal 27.0-33.0 [facility] Comment on above: Order Comment: No: D o not add to previous draw Performed By: #### 5 0608 #### [facility] [address] [place] [id number], [facility] MCHC (RBC) [Mass/Vol] 33.3 g/dL Normal 32.0-35.0 [facility] Comment on above: Order Comment: No: D o not add to previous draw Performed By: #### 5 [id number] #### [facility] [address] [facility] [place] [address], [facility] MCV (RBC) [Entitic vol] 87.0 fL Normal 82.0-98.0 [facility] Comment on above: Order Comment: No: D o not add to previous draw Performed By: #### 5 [id number] #### [facility] [address] [facility] [place] [address], [facility] Nucleated RBC/100 WBC (Bld) [Ratio] 0 % Normal 0-0 [facility] Comment on above: Order Comment: No: D o not add to previous draw Performed By: #### 5 0608 #### [facility] [address] [place] [address], [place] PLAT CNT 293 10*3/uL Normal 150-400 [facility] Comment on above: Order Comment: No: D o not add to previous draw Performed By: #### 5 0608 #### [facility] [address] [place] [address], [facility] RBC (Bld) [#/Vol] 4.76 10*6/uL Normal 3.80-5.00 [facility] Comment on above: Order Comment: No: D o not add to previous draw Performed By: #### 5 0608 #### [facility] [address] WBC (Bld) [#/Vol] 10.48 10*3/uL Normal 4.00-10.60 [facility] Comment on above: Order Comment: No: D o not add to previous draw Performed By: #### 5 0608 #### [facility] [address] History and Physicalon 08-23 History and Physical MR#: [id number] [facility] Pt. Name: Sherly Humphreys Admitted: 08/23/2018 Date of : 1970 Attending Physician: Nini Valente MD Room #: 3AB [id number] Discharge Date: HISTORY AND PHYSICAL CHIEF COMPLAINT: [...] to the emergency department in [facility]. Initial evaluation included troponin and EKG, which were negative. The patient was started on nitroglycerin patch. She experienced some relief after starting the nitroglycerin patch. Her pain went down from 8 to 6/10. Given her significant cardiac history, the patient was transferred to [facility] for further evaluation. The patient [...] ST-T wave changes. Troponin from [facility] was 0.01. Pending troponin in our [...] Valente MD Date Trans: 08/23/2018 06:27 Amanda/yadira [id number] Normal [facility] POC GLUCOSE LABon 08-23-2018 Glucose [Mass/Vol] 101 mg/dL High 70-100 [facility] Comment on above: Performed By: #### 5 0608 #### [facility] [address] [facility] [place] [address], [facility] Glucose [Mass/Vol] 96 mg/dL Normal 70-100 [facility] Comment on above: Performed By: #### 5 0608 #### [facility] [address] [facility] [place] [address], [place] Glucose [Mass/Vol] 134 mg/dL High 70-100 [facility] Comment on above: Performed By: #### 8 5499 #### [facility] [address] [place] [address], [place] Glucose [Mass/Vol] 164 mg/dL High 70-100 [facility] Comment on above: Performed By: #### 8 5499 #### [facility] [address] [place] [address], [place] PROTHROMBIN TIMEon 9 INR Coag (PPP) [Relative time] 1.06 {INR} Normal 0.91-1.16 [facility] Comment on above: Order Comment: [...] CHEST 1995;108:[id number]. Performed By: #### 5 [id number], [id number] #### [facility] [address] [place] [address], [facility] PT Coag (PPP) [Time] 13.8 s Normal 12.3-14.8 [facility] Comment on above: Order Comment: No: D o not add to previous draw Result Comment: ALL RESULTS MUST BE INTERPRETED WITH RESPECT TO BLOOD DRAWING ARTIFACT OR DILUTION ERROR OF ANTICOAGULANT AT THE TIME OF SAMPLING. Performed By: #### 5 [id number], [id number] #### [facility] [address] [place] [address], [facility] SERUM TESTon 08-23 TEST Negative Normal [facility] Comment on above: Order Comment: Yes: Add to Previous draw if able Performed By: #### 4 6473 #### [facility] [address] [place] [id number], [facility] TROPONIN-Ion 08-23-2018 Troponin I.cardiac [Mass/Vol] 0.01 ng/mL Normal 0.00-0.04 [facility] Comment on above: Order Comment: No: D o not add to previous draw Result Comment: REFE RENCE RANGES: 0.00 - 0.04 ng/ml NORMAL 0.05 - 0.50 ng/ml INDETERMINATE > 0.50 ng/ml CONSISTENT WITH AN M.I. Performed By: #### 3 5200 #### [facility] [address] UFH HEPARIN ASSAYon 08-24-19 19 UNFRACTIONATED HEPARIN 0.42 IU/mL Normal 0.30-0.70 [facility] Comment on above: Order Comment: per beatriz schneider Result Comment: Ragan roxaban and Apixaban will interfere with the anti Xa assay used to monitor UFH and LMWH. Performed By: #### 3 0477 #### [facility] [address] UNFRACTIONATED HEPARIN 0.29 IU/mL Low 0.30-0.70 [facility] Comment on above: Result Comment: Betty roxaban and Apixaban will interfere with the anti Xa assay used to monitor UFH and LMWH. Performed By: #### 3 0477 #### [facility] [address] US GALLBLADDERon 08-23-2018 US GALLBLADDER [facility] Department of Radiology [address] [place] [id number] Patient Name: SHERLY HUMPHREYS : 1970 Sex: F Age: Race: White Pt. Location: [address] [place] [address] Patient Status: I Ordered Date: 08/23/2018 11:30:00 [...] gallbladder. Electronically signed by:Nathan Mauricio. Transcribed by: [email or web address], User Resident: Electronically Signed by: NATHAN MAURICIO @ 08/23/2018 03:33 PM Normal [facility] Comment on above: Order Comment: No: D o not add to previous draw Vital Signs Date Time Vital Sign Value Performing Clinician Facility 12-30-2024 12:06-0400 Diastolic blood pressure 75 mm[Hg] Joshuareginaldo Petersen DMD Work Phone: [facility] 12-30-2024 12:06-0400 Heart rate 64 /min Joshuareginaldo Petersen DMD Work Phone: [facility] 12-30-2024 12:06-0400 Systolic blood pressure 136 mm[Hg] Joshuareginaldo Petersen DMD Work Phone: [facility] 12-16-2024 08:50-0400 Body temperature 98.3 [degF] Janene Lew Work Phone: [facility] 12-16-2024 08:50-0400 Body weight 104.77 kg Janene Aichholz Work Phone: [facility] 12-16-2024 08:50-0400 Diastolic blood pressure 78 mm[Hg] Janene Aichholz Work Phone: [facility] 12-16-2024 08:50-0400 Heart rate 56 /min Janene Aichholz Work Phone: [facility] 12-16-2024 08:50-0400 Respiratory rate 20 /min Janene Aichholz Work Phone: [facility] 12-16-2024 08:50-0400 Systolic blood pressure 132 mm[Hg] Janene Aichholz Work Phone: [facility] 12-02-2024 09:25-0400 Body height 162.56 cm Joshua Doyleani DMD Work Phone: [facility] 12-02-2024 09:25-0400 Body mass index (BMI) [Ratio] 39.48 kg/m2 Joshua Doyleani DMD Work Phone: [facility] 12-02-2024 09:25-0400 Body surface area Derived from formula 2.17 m2 Joshua Kanani DMD Work Phone: [facility] 12-02-2024 09:25-0400 Body temperature 97.7 [degF] Joshua Kanani DMD Work Phone: [facility] 12-02-2024 09:25-0400 Body weight 104.33 kg Joshua Kanani DMD Work Phone: [facility] 12-02-2024 09:25-0400 Diastolic blood pressure 84 mm[Hg] Joshua Doyleani DMD Work Phone: [facility] 12-02-2024 09:25-0400 Heart rate 53 /min Joshua Vivekani DMD Work Phone: [facility] 12-02-2024 09:25-0400 Systolic blood pressure 148 mm[Hg] Joshua Petersen DMD Work Phone: [facility] 11-26-2024 09:39-0400 Body height 162.56 cm Janene Aichholz Work Phone: [facility] 11-26-2024 09:39-0400 Body mass index (BMI) [Ratio] 39.8 kg/m2 Janene Aichholz Work Phone: [facility] 11-26-2024 09:39-0400 Body weight 105.23 kg Janene Aichholz Work Phone: [facility] 11-26-2024 09:39-0400 Diastolic blood pressure 75 mm[Hg] Janene Aichholz Work Phone: [facility] 11-26-2024 09:39-0400 Heart rate 61 /min Janene Aichholz Work Phone: [facility] 11-26-2024 09:39-0400 Respiratory rate 16 /min Janene Aichholz Work Phone: [facility] 11-26-2024 09:39-0400 SaO2% (BldA) [Mass fraction] 98 % Janene Aichholz Work Phone: [facility] 11-26-2024 09:39-0400 Systolic blood pressure 118 mm[Hg] Janene Aichholz Work Phone: [facility] 11-03-2024 09:50-0400 Body height 170.2 cm Marya Petznick DO Work Phone: [facility] 11-03-2024 09:50-0400 Body mass index (BMI) [Ratio] 36.65 kg/m2 Marya Petznick DO Work Phone: [facility] 11-03-2024 09:50-0400 Body temperature 98.01 [degF] Marya Petznick DO Work Phone: [facility] 11-03-2024 09:50-0400 Body weight 106.14 kg Marya Petznick DO Work Phone: [facility] 11-03-2024 09:50-0400 Diastolic blood pressure 78 mm[Hg] Marya Petznick DO Work Phone: [facility] 11-03-2024 09:50-0400 Heart rate 56 /min Marya Petznick DO Work Phone: [facility] 11-03-2024 09:50-0400 SaO2% (BldA) [Mass fraction] 96 % Marya Petznick DO Work Phone: [facility] 11-03-2024 09:50-0400 Systolic blood pressure 124 mm[Hg] Marya Petznick DO Work Phone: [facility] 09-03-2024 09:40-0400 Body mass index (BMI) [Ratio] 37.59 kg/m2 Janene Lew [employer]MENT [employer]VIEW[employer] Work Phone: [facility] 09-03-2024 09:40-0400 Body temperature 98.49 [degF] Janene Lew [employer]MENT INTERVIEWER Work Phone: [facility] 09-03-2024 09:40-0400 Body weight 108.86 kg Janene Lew [employer]OYMENT INTERVIEWER Work Phone: [facility] 09-03-2024 09:40-0400 Diastolic blood pressure 72 mm[Hg] Janene Lew [employer]OYMENT INTERVIEWER Work Phone: [facility] 09-03-2024 09:40-0400 Heart rate 67 /min Janene Lew [employer]MENT INTERVIEWER Work Phone: [facility] 09-03-2024 09:40-0400 Respiratory rate 22 /min Janene Lew [employer]OYMENT INTERVIEWER Work Phone: [facility] 09-03-2024 09:40-0400 SaO2% (BldA) [Mass fraction] 97 % Janene Lew EM[employer]OYMENT INTERVIEWER Work Phone: [facility] 09-03-2024 09:40-0400 Systolic blood pressure 102 mm[Hg] Janene Lew EMPLOYMENT INTERVIEWER Work Phone: [facility] 06-16-2024 09:07-0500 Body height 170.2 cm Marya Petznick DO Work Phone: [facility] 06-16-2024 09:07-0500 Body mass index (BMI) [Ratio] 38.37 kg/m2 Marya Petznick DO Work Phone: [facility] 06-16-2024 09:07-0500 Body temperature 98.2 [degF] Marya Petznick DO Work Phone: [facility] 06-16-2024 09:07-0500 Body weight 111.13 kg Marya Petznick DO Work Phone: [facility] 06-16-2024 09:07-0500 Diastolic blood pressure 82 mm[Hg] Marya Petznick DO Work Phone: [facility] 06-16-2024 09:07-0500 Heart rate 61 /min Marya Petznick DO Work Phone: [facility] 06-16-2024 09:07-0500 SaO2% (BldA) [Mass fraction] 97 % Marya Petznick DO Work Phone: [facility] 06-16-2024 09:07-0500 Systolic blood pressure 136 mm[Hg] Marya Petznick DO Work Phone: [facility] 03-06-2024 09:28-0500 Body height 170.2 cm Janene Lew EMPLOYMENT INTERVIEWER Work Phone: [facility] 03-06-2024 09:28-0500 Body mass index (BMI) [Ratio] 40.69 kg/m2 Janene Lew EMPLOYMENT INTERVIEWER Work Phone: [facility] 03-06-2024 09:28-0500 Body temperature 98.49 [degF] Janene Lew EMPLOYMENT INTERVIEWER Work Phone: [facility] 03-06-2024 09:28-0500 Body weight 117.84 kg Janene Lew EMPLOYMENT INTERVIEWER Work Phone: [facility] 03-06-2024 09:28-0500 Diastolic blood pressure 84 mm[Hg] Janeneamanda Jonesholz EMPLOYMENT INTERVIEWER Work Phone: [facility] 03-06-2024 09:28-0500 Heart rate 60 /min Janeneamanda Jonesholz EMPLOYMENT INTERVIEWER Work Phone: [facility] 03-06-2024 09:28-0500 Respiratory rate 20 /min Janeneamanda Jonesholz EMPLOYMENT INTERVIEWER Work Phone: [facility] 03-06-2024 09:28-0500 SaO2% (BldA) [Mass fraction] 96 % Janene Middletonz EMPLOYMENT INTERVIEWER Work Phone: [facility] 03-06-2024 09:28-0500 Systolic blood pressure 132 mm[Hg] Janene Jonesholz EMPLOYMENT INTERVIEWER Work Phone: [facility] 02-19-2024 09:23-0500 Body height 162.6 cm Marya Petznick DO Work Phone: [facility] 02-19-2024 09:23-0500 Body mass index (BMI) [Ratio] 46.86 kg/m2 Marya Petznick DO Work Phone: [facility] 02-19-2024 09:23-0500 Body temperature 96.8 [degF] Marya Petznick DO Work Phone: [facility] 02-19-2024 09:23-0500 Body weight 123.83 kg Marya Petznick DO Work Phone: [facility] 02-19-2024 09:23-0500 Diastolic blood pressure 82 mm[Hg] Marya Petznick DO Work Phone: [facility] 02-19-2024 09:23-0500 Heart rate 56 /min Marya Petznick DO Work Phone: [facility] 02-19-2024 09:23-0500 SaO2% (BldA) [Mass fraction] 97 % Marya Petznick DO Work Phone: [facility] 02-19-2024 09:23-0500 Systolic blood pressure 130 mm[Hg] Marya Petznick DO Work Phone: [facility] 12-05-2023 08:35-0400 Body height 162.6 cm Janene Aichholz EMPLOYMENT INTERVIEWER Work Phone: [facility] 12-05-2023 08:35-0400 Body mass index (BMI) [Ratio] 49.06 kg/m2 Janene Aichholz EMPLOYMENT INTERVIEWER Work Phone: [facility] 12-05-2023 08:35-0400 Body temperature 98.71 [degF] Janene Aichholz EMPLOYMENT INTERVIEWER Work Phone: [facility] 12-05-2023 08:35-0400 Body weight 129.64 kg Janene Aichholz EMPLOYMENT INTERVIEWER Work Phone: [facility] 12-05-2023 08:35-0400 Diastolic blood pressure 88 mm[Hg] Janene Aichholz EMPLOYMENT INTERVIEWER Work Phone: [facility] 12-05-2023 08:35-0400 Heart rate 66 /min Janene Aichholz EMPLOYMENT INTERVIEWER Work Phone: [facility] 12-05-2023 08:35-0400 Respiratory rate 20 /min Janene Aichholz EMPLOYMENT INTERVIEWER Work Phone: [facility] 12-05-2023 08:35-0400 SaO2% (BldA) [Mass fraction] 98 % Janene Aichholz EMPLOYMENT INTERVIEWER Work Phone: [facility] 12-05-2023 08:35-0400 Systolic blood pressure 122 mm[Hg] Janene Aichholz EMPLOYMENT INTERVIEWER Work Phone: [facility] 11-01-2023 11:00-0400 Diastolic blood pressure 83 mm[Hg] Janene Aichholz Work Phone: [facility] 11-01-2023 11:00-0400 Heart rate 52 /min Janene Aichholz Work Phone: [facility] 11-01-2023 11:00-0400 Respiratory rate 16 /min Janene Aichholz Work Phone: [facility] 11-01-2023 11:00-0400 SaO2% (BldA) [Mass fraction] 98 % Janene Aichholz Work Phone: [facility] 11-01-2023 11:00-0400 Systolic blood pressure 144 mm[Hg] Janene Aichholz Work Phone: [facility] 11-01-2023 10:30-0400 Inhaled oxygen flow rate 8 L/min Janene Aichholz Work Phone: [facility] 11-01-2023 07:28-0400 Body height 162.56 cm Janene Aichholz Work Phone: [facility] 11-01-2023 07:28-0400 Body temperature 97.9 [degF] Janene Aichholz Work Phone: [facility] 11-01-2023 07:28-0400 Body weight 129.72 kg Janene Aichholz Work Phone: [facility] 10-16-2023 13:05-0400 Body height 162.56 cm Janene Aichholz Work Phone: [facility] 10-16-2023 13:05-0400 Body mass index (BMI) [Ratio] 51.5 kg/m2 Janene Aichholz Work Phone: [facility] 10-16-2023 13:05-0400 Body temperature 97.3 [degF] Janene Aichholz Work Phone: [facility] 10-16-2023 13:05-0400 Body weight 136.3 kg Janene Aichholz Work Phone: [facility] 10-16-2023 13:05-0400 Diastolic blood pressure 76 mm[Hg] Janene Aichholz Work Phone: [facility] 10-16-2023 13:05-0400 Heart rate 69 /min Janene Aichholz Work Phone: [facility] 10-16-2023 13:05-0400 Respiratory rate 18 /min Janene Aichholz Work Phone: [facility] 10-16-2023 13:05-0400 SaO2% (BldA) [Mass fraction] 99 % Janene Aichholz Work Phone: [facility] 10-16-2023 13:05-0400 Systolic blood pressure 125 mm[Hg] Janene Aichholz Work Phone: [facility] 10-02-2023 08:00-0400 Body temperature 97.9 [degF] Janene Aichholz Work Phone: [facility] 10-02-2023 08:00-0400 Diastolic blood pressure 82 mm[Hg] Janene Aichholz Work Phone: [facility] 10-02-2023 08:00-0400 Heart rate 58 /min Janene Aichholz Work Phone: [facility] 10-02-2023 08:00-0400 Respiratory rate 16 /min Janene Aichholz Work Phone: [facility] 10-02-2023 08:00-0400 SaO2% (BldA) [Mass fraction] 100 % Janene Aichholz Work Phone: [facility] 10-02-2023 08:00-0400 Systolic blood pressure 138 mm[Hg] Janene Aichholz Work Phone: [facility] 10-02-2023 05:02-0400 Body weight 139.8 kg Janene Aichholz Work Phone: [facility] 10-01-2023 05:34-0400 Body height 162.56 cm Janene Aichholz Work Phone: [facility] 08-15-2023 10:02-0400 Body height 162.56 cm Janene Aichholz Work Phone: [facility] 08-15-2023 10:02-0400 Body mass index (BMI) [Ratio] 54.6 kg/m2 Janene Aichholz Work Phone: [facility] 08-15-2023 10:02-0400 Body temperature 96.9 [degF] Janene Aichholz Work Phone: [facility] 08-15-2023 10:02-0400 Body weight 144.24 kg Janene Aichholz Work Phone: [facility] 08-15-2023 10:02-0400 Diastolic blood pressure 77 mm[Hg] Janene Aichholz Work Phone: [facility] 08-15-2023 10:02-0400 Heart rate 59 /min Janene Aichholz Work Phone: [facility] 08-15-2023 10:02-0400 Respiratory rate 18 /min Janene Aichholz Work Phone: [facility] 08-15-2023 10:02-0400 SaO2% (BldA) [Mass fraction] 98 % Janene Aichholz Work Phone: [facility] 08-15-2023 10:02-0400 Systolic blood pressure 130 mm[Hg] Janene Aichholz Work Phone: [facility] 08-14-2022 10:15-0400 Body height 162.56 cm Ivan Sams Other [employer] Other 08-14-2022 10:15-0400 Body mass index (BMI) [Ratio] 51.63 kg/m2 Ivanying Sams Other [employer] Other 08-14-2022 10:15-0400 Body weight 136.44 kg Ivanying Sams Other [employer] Other 08-14-2022 10:15-0400 Diastolic blood pressure 80 mm[Hg] Ivan Latrell Other [employer] Other 08-14-2022 10:15-0400 SaO2% (BldA) [Mass fraction] 99 % Ivan Latrell Other [employer] Other 08-14-2022 10:15-0400 Systolic blood pressure 140 mm[Hg] Ivan Latrell Other [employer] Other 07-03-2022 12:30-0400 Body height 162.56 cm Ivan Sams Other [employer] Other 07-03-2022 12:30-0400 Body mass index (BMI) [Ratio] 51.39 kg/m2 Ivan Sams Other [employer] Other 07-03-2022 12:30-0400 Body weight 135.81 kg Ivan Latrell Other [employer] Other 07-03-2022 12:30-0400 Diastolic blood pressure 84 mm[Hg] Ivan Latrell Other [employer] Other 07-03-2022 12:30-0400 SaO2% (BldA) [Mass fraction] 99 % Ivan Latrell Other [employer] [facility] [employer] Other 07-03-2022 12:30-0400 Systolic blood pressure 142 mm[Hg] Ivan Sams Other [employer] Other 06-24-2022 15:59-0500 Body height 162.56 cm Janene Aichholz Work Phone: [facility] 06-24-2022 15:59-0500 Body temperature 98.2 [degF] Janene Aichholz Work Phone: [facility] 06-24-2022 15:59-0500 Body weight 134.4 kg Janene Aichholz Work Phone: [facility] 06-24-2022 15:59-0500 Diastolic blood pressure 95 mm[Hg] Janene Aichholz Work Phone: [facility] 06-24-2022 15:59-0500 Heart rate 94 /min Janene Aichholz Work Phone: [facility] 06-24-2022 15:59-0500 Respiratory rate 20 /min Janene Aichholz Work Phone: [facility] 06-24-2022 15:59-0500 SaO2% (BldA) [Mass fraction] 96 % Janene Aichholz Work Phone: [facility] 06-24-2022 15:59-0500 Systolic blood pressure 187 mm[Hg] Janene Aichholz Work Phone: [facility] 05-12-2022 12:00-0500 Body height 162.56 cm Christian Hamilton Other [employer] Other 05-12-2022 12:00-0500 Body mass index (BMI) [Ratio] 51.94 kg/m2 Christian Hamilton Other [employer] Other 05-12-2022 12:00-0500 Body weight 137.26 kg Christian Hamilton Other [employer] Other 04-25-2022 12:20-0500 Body height 162.56 cm Aziz Bakhous Other [employer] Other 04-25-2022 12:20-0500 Body mass index (BMI) [Ratio] 51.94 kg/m2 Aziz Bakhous Other [employer] Other 04-25-2022 12:20-0500 Body temperature 97.5 [degF] Aziz Bakhous Other [employer] Other 04-25-2022 12:20-0500 Body weight 137.26 kg Aziz Bakhous Other [employer] Other 04-25-2022 12:20-0500 Diastolic blood pressure 80 mm[Hg] Aziz Bakhous Other [employer] Other 04-25-2022 12:20-0500 Respiratory rate 18 /min Aziz Bakhous Other [employer] Other 04-25-2022 12:20-0500 SaO2% (BldA) [Mass fraction] 97 % Aziz Bakhous Other [employer] Other 04-25-2022 12:20-0500 Systolic blood pressure 140 mm[Hg] Aziz Bakhous Other [employer] Other 01-25-2022 16:15-0400 Body height 162.56 cm Emma Bolivar Other [employer] Other 01-25-2022 16:15-0400 Body mass index (BMI) [Ratio] 52.78 kg/m2 Emma Bolivar Other [employer] Other 01-25-2022 16:15-0400 Body temperature 97.1 [degF] Emma Bolivar Other [employer] Other 01-25-2022 16:15-0400 Body weight 139.48 kg Emma Bolivar Other [employer] Other 01-25-2022 16:15-0400 Diastolic blood pressure 70 mm[Hg] Emma Bolivar Other [employer] Other 01-25-2022 16:15-0400 SaO2% (BldA) [Mass fraction] 98 % Emma Bolivar Other [employer] Other 01-25-2022 16:15-0400 Systolic blood pressure 142 mm[Hg] Emma Bolivar Other [employer] Other 12-06-2021 12:20-0400 Body height 162.56 cm Christian Hamilton Other [employer] Other 12-06-2021 12:20-0400 Body mass index (BMI) [Ratio] 46.34 kg/m2 Christian Hamilton Other [employer] Other 12-06-2021 12:20-0400 Body weight 122.47 kg Christian Hamilton Other [employer] Other 11-10-2021 16:20-0400 Body height 162.56 cm Christian Hamilton Other [employer] Other 11-10-2021 16:20-0400 Body mass index (BMI) [Ratio] 46.34 kg/m2 Christian Hamilton Other [employer] Other 11-10-2021 16:20-0400 Body weight 122.47 kg Christian Hamilton Other [employer] Other 09-29-2021 14:00-0400 Body height 162.56 cm Christian Hamilton Other [employer] Other 09-29-2021 14:00-0400 Body mass index (BMI) [Ratio] 46 kg/m2 Christian Hamilton Other [employer] Other 09-29-2021 14:00-0400 Body weight 121.56 kg Christian Hamilton Other [employer] Other 08-30-2021 15:40-0400 Body height 162.56 cm Christian Hamilton Other [employer] Other 08-30-2021 15:40-0400 Body mass index (BMI) [Ratio] 46 kg/m2 Christian Hamilton Other [employer] Other 08-30-2021 15:40-0400 Body weight 121.56 kg Christian Hamilotn Other [employer] Other Encounters Encounter Date Encounter Type Care Provider Facility Start: 12-30-2024 End: 12-30-2024 Encounter identifier [facility]en DMD [facility] Start: 12-30-2024 ambulatory Joshua Petersen DMD [facility] Start: 12-16-2024 End: 12-16-2024 ambulatory Janene Lew Work Phone: [facility] Work Phone: Start: 12-16-2024 End: 12-16-2024 Patient encounter procedure Janene Lew EMPLOYMENT INTERVIEWER-C -[facility] [place] Work Phone: Start: 12-12-2024 ambulatory [facility] Start: 12-12-2024 End: 12-12-2024 ambulatory [facility] Start: 12-06-2024 End: 12-06-2024 Clinisync Result Encounter Generic External Data Provider [facility] External Department Unsolicited Start: 12-06-2024 End: 12-06-2024 Clinisync Result Encounter Generic External Data Provider [facility] External Department Unsolicited Start: 12-06-2024 End: 12-08-2024 Refill Janene Lew EMPLOYMENT INTERVIEWER Work Phone: [facility] Comment on above: Restless leg syndrom e Start: 12-02-2024 End: 12-02-2024 periodic oral evaluation - established patient Joshua Petersen DMD Work Phone: [facility] Start: 12-02-2024 End: 12-02-2024 Encounter identifier Joshua Petersen DMD Work Phone: [facility] Start: 11-26-2024 End: 11-26-2024 ambulatory Janene Lew Work Phone: [facility] Work Phone: Start: 11-26-2024 End: 11-26-2024 Patient encounter procedure Halle Mac MD -[facility] Work Phone: Start: 11-21-2024 End: 11-23-2024 Refill Janene Lew EMPLOYMENT INTERVIEWER Work Phone: [facility] Comment on above: Restless leg syndrom e Start: 11-18-2024 End: 11-18-2024 Patient encounter procedure Halle Mac MD -[facility] Work Phone: Start: 11-18-2024 End: 11-18-2024 ambulatory Janene Lew Work Phone: [facility] Work Phone: Start: 11-17-2024 End: 11-17-2024 Clinisync Result Encounter Generic External Data Provider [facility] External Department Unsolicited Start: 11-17-2024 End: 11-17-2024 Clinisync Result Encounter Generic External Data Provider [facility] External Department Unsolicited Start: 11-11-2024 End: 11-12-2024 Refill Janene Lew EMPLOYMENT INTERVIEWER Work Phone: [facility] Comment on above: Muscle spasm Start: 11-06-2024 Registered Recurring Maximo Pedraza [employer] Start: 11-06-2024 ambulatory Janene Lew Facilit y:[facility] Start: 11-03-2024 End: 11-03-2024 Bamboo flowsheet Marya Castorena DO Work Phone: [facility] Start: 11-03-2024 End: 11-03-2024 Bamboo flowsheet Marya Simonick DO Work Phone: [facility] Start: 11-03-2024 End: 11-03-2024 Office outpatient visit 25 minutes Marya Castorena DO Work Phone: [facility] 230 Comment on above: Type 2 diabetes [...] (BMI) of 36.0 to 36.9 in adult ([facility]-HCC) Start: 11-03-2024 End: 11-03-2024 ambulatory MARYA CASTORENA Not Available Start: 10-16-2024 End: 10-16-2024 ambulatory [facility] Start: 10-16-2024 End: 10-16-2024 Encounter for other preprocedural examination [facility] Start: 10-07-2024 End: 10-07-2024 Clinisync Result Encounter Generic External Data Provider [facility] External Department Unsolicited Start: 10-07-2024 End: 10-07-2024 Clinisync Result Encounter Generic External Data Provider [facility] External Department Unsolicited Start: 09-09-2024 End: 09-09-2024 Refill Janene Lew EMPLOYMENT INTERVIEWER Work Phone: [facility] Comment on above: Restless leg syndrom e Start: 09-03-2024 End: 09-03-2024 Patient encounter status Janene Lew NP Work Phone: [facility] Start: 09-03-2024 End: 09-03-2024 Periodic preventive med est patient 40-64yrs Janene Lew EMPLOYMENT INTERVIEWER Work Phone: [facility] Comment on [...] (CMS/HCC) Start: 09-03-2024 End: 09-03-2024 ambulatory JANENE LOUANN Not Available Start: 09-01-2024 End: 09-02-2024 Refill Janene Lew EMPLOYMENT INTERVIEWER Work Phone: [facility] Comment on above: Primary hypertension (CMS/HCC) Muscle spasm Start: 08-28-2024 End: 08-28-2024 Clinisync Result Encounter Janene Lew EMPLOYMENT INTERVIEWER Work Phone: [facility] External Department Unsolicited Start: 08-28-2024 End: 08-28-2024 Clinisync Result Encounter Janene Louann EMPLOYMENT INTERVIEWER Work Phone: [facility] External Department Unsolicited Start: 08-12-2024 End: 08-14-2024 Refill Janene Louann EMPLOYMENT INTERVIEWER Work Phone: [facility] Start: 07-25-2024 End: 07-25-2024 Refill Janene Louann EMPLOYMENT INTERVIEWER Work Phone: [facility] Comment on above: Restless leg syndrom e Start: 07-15-2024 End: 07-15-2024 Orders Only Janene Louann EMPLOYMENT INTERVIEWER Work Phone: [facility] Comment on above: Acute foot pain, lef t (Primary Dx); Acute left ankle pain Start: 06-16-2024 End: 06-16-2024 Bamboo flowsheet Marya Castorena DO Work Phone: [facility] Start: 06-16-2024 End: 06-16-2024 Bamboo flowsheet Marya Simonick DO Work Phone: [facility] Start: 06-16-2024 End: 06-16-2024 Office outpatient visit 25 minutes Marya Castorena DO Work Phone: [facility] Comment on above: Class 2 severe obesi ty due to excess calories with serious comorbidity and body mass index (BMI) of 38.0 to 38.9 in adult ([facility]) (Primary Dx); Type 2 diabetes mellitus with other circulatory complications ([facility]); Type 2 diabetes mellitus with stage 3a chronic kidney disease, without long-term current use of insulin ([facility]) ([facility]) Start: 06-16-2024 End: 06-16-2024 ambulatory MARYA CASTORENA Not Available Start: 05-27-2024 End: 05-27-2024 Refill Janene Louann EMPLOYMENT INTERVIEWER Work Phone: [facility] Comment on above: Muscle spasm Start: 03-20-2024 End: 03-21-2024 Refill Janene Aichholz EMPLOYMENT INTERVIEWER Work Phone: [facility] Comment on above: Restless leg syndrom e Start: 03-11-2024 End: 03-11-2024 ambulatory Halle Mac Facility:[facility] Start: 03-06-2024 End: 03-06-2024 Bamboo flowsheet Janene Aichholz EMPLOYMENT INTERVIEWER Work Phone: [facility] Start: 03-06-2024 End: 03-06-2024 Bamboo flowsheet Janene Aichholz EMPLOYMENT INTERVIEWER Work Phone: [facility] Start: 03-06-2024 End: 03-06-2024 Office outpatient visit 25 minutes Janene Aicjacek EMPLOYMENT INTERVIEWER Work Phone: [facility] Comment on [...] Start: 02-22-2024 End: 02-25-2024 Refill Janene Aichholz EMPLOYMENT INTERVIEWER Work Phone: [facility] Comment on above: Muscle spasm Start: 02-19-2024 End: 02-19-2024 Office outpatient visit 25 minutes Marya Castorena DO Work Phone: [facility] 230 Comment on above: Type 2 diabetes chidi itus with other circulatory complications ([facility]/HCC) (Primary Dx); Type 2 diabetes mellitus with stage 4 chronic kidney disease, without long-term current use of insulin (CMS/HCC); Type 2 diabetes mellitus with stage 3a chronic kidney disease, without long-term current use of insulin (HCC) ([facility]/HCC); Class 3 severe obesity due to excess calories with serious comorbidity and body mass index (BMI) of 45.0 to 49.9 in adult (CMS/HCC) Start: 02-19-2024 End: 02-19-2024 ambulatory MARYA STALEYCARMENZA Not Available Start: 01-14-2024 End: 01-14-2024 Refill Janene Aichholz EMPLOYMENT INTERVIEWER Work Phone: [facility] Comment on above: Primary hypertension ([facility]) Start: 12-19-2023 End: 12-19-2023 Refill Janene Aichholz EMPLOYMENT INTERVIEWER Work Phone: [facility] Comment on above: Type 2 diabetes chidi itus with stage 4 chronic kidney disease, without long-term current use of insulin ([facility]) (Primary Dx) Start: 12-18-2023 End: 12-18-2023 Clinisync Result Encounter Janene Aichholz EMPLOYMENT INTERVIEWER Work Phone: [facility] External Department Unsolicited Start: 12-18-2023 End: 12-18-2023 Clinisync Result Encounter Janene Aichholz EMPLOYMENT INTERVIEWER Work Phone: [facility] External Department Unsolicited Start: 12-18-2023 End: 12-18-2023 Refill Janene Aichholz EMPLOYMENT INTERVIEWER Work Phone: [facility] Comment on above: Restless leg syndrom e Start: 12-18-2023 End: 12-18-2023 Refill Janene Aichholz EMPLOYMENT INTERVIEWER Work Phone: [facility] Comment on above: Antibiotic-induced y east infection (Primary Dx) Start: 12-05-2023 End: 08-21-2024 Bamboo flowsheet Janene Aichholz EMPLOYMENT INTERVIEWER Work Phone: [facility] Start: 12-05-2023 End: 12-05-2023 Bamboo flowsheet Janene Louann EMPLOYMENT INTERVIEWER Work Phone: [facility] Start: 12-05-2023 End: 12-07-2023 Refill Janene Louann EMPLOYMENT INTERVIEWER Work Phone: [facility] Comment on above: Muscle spasm Start: 12-05-2023 End: 12-05-2023 Office outpatient visit 25 minutes Janene Louann EMPLOYMENT INTERVIEWER Work Phone: [facility] Comment on above: Left lower quadrant abdominal pain (Primary Dx); Morbid (severe) obesity due to excess calories (CMS/HCC); Body mass index (BMI) 45.0-49.9, adult (CMS/HCC); Restless leg syndrome; Stage 3b chronic kidney disease (HCC) (CMS/HCC) Start: 12-05-2023 End: 12-05-2023 ambulatory JANENE LEW Not Available Start: 12-03-2023 End: 12-03-2023 ambulatory Marcella Conway MD Facility:[facility] Start: 11-19-2023 End: 11-19-2023 ambulatory MARYA CASTORENA Not Available Start: 11-12-2023 End: 11-12-2023 ambulatory BAN CLEMENTE V Not Available Start: 11-01-2023 End: 11-01-2023 Admission to same day surgery center Janene Lew Work Phone: [facility] [place] Start: 11-01-2023 End: 11-01-2023 ambulatory Janene Lew Work Phone: [facility] Work Phone: Start: 10-29-2023 Registered Recurring Janene espitia Work Phone: [facility] Start: 10-16-2023 End: 10-16-2023 ambulatory Janene Lew Work Phone: [facility] Work Phone: Start: 10-16-2023 End: 10-16-2023 Patient encounter procedure Janene Lew Work Phone: [facility] Work Phone: Start: 10-16-2023 Registered Recurring Janene espitia Work Phone: [facility] [employer] Start: 10-11-2023 End: 10-11-2023 ambulatory Janeneamanda Jonesholz Work Phone: [facility] Work Phone: Start: 10-11-2023 End: 10-11-2023 Patient encounter procedure Janene Lew Work Phone: [facility] [place] Work Phone: Start: 10-01-2023 Non-patient / Non-visit Janeneamanda field Work Phone: [facility] Work Phone: Start: 10-01-2023 End: 10-02-2023 Evaluation and management of inpatient Janene Lew Work Phone: [facility] Work Phone: Start: 09-24-2023 End: 09-24-2023 ambulatory Marcella Conway MD Facility: [facility] Start: 09-03-2023 Registered Recurring Janeneamanda adamsz Work Phone: [facility] [employer] Start: 08-15-2023 End: 08-15-2023 Patient encounter procedure Janene Jonesangiez Work Phone: [facility] Work Phone: Start: 08-10-2023 End: 08-10-2023 ambulatory Janene J Karenholz Work Phone: [facility] Work Phone: Start: 08-10-2023 End: 08-10-2023 Patient encounter procedure Janene Jonesangierufus Work Phone: [facility] [place] Work Phone: Start: 07-09-2023 End: 07-09-2023 ambulatory Marcella Conway MD Facility:[facility] Start: 06-19-2023 End: 06-19-2023 Patient encounter procedure Janene Jonesjeremiah Work Phone: [facility] [place] Work Phone: Start: 05-25-2023 End: 05-25-2023 ambulatory MARKEL HAQ Facility:[facility] Start: 05-17-2023 End: 05-17-2023 ambulatory Janene Lopes Reddpanchitojeremiah Work Phone: [facility] Work Phone: Start: 05-17-2023 End: 05-17-2023 Patient encounter procedure Janene Jonesangierufus Work Phone: [facility] [place] Work Phone: Start: 03-15-2023 Registered Recurring Janene Jones jeremiah Work Phone: [facility] Start: 02-19-2023 End: 02-19-2023 ambulatory Marcella Conway MD Facility:[facility] Start: 01-01-2023 End: 01-01-2023 ambulatory Marcella Conway MD Facility:[facility] Start: 11-29-2022 End: 11-29-2022 ambulatory Halle Mac Other [facility] [employer] Other Start: 11-29-2022 Telephone encounter Halle Mac [facility] Start: 09-18-2022 End: 09-18-2022 ambulatory Ivan Sams Other [employer] Other Start: 09-18-2022 Telephone encounter Ivan Sams [facility] Start: 09-07-2022 End: 09-07-2022 ambulatory AGUSTINA LEW Facility:[facility] Start: 08-14-2022 End: 08-14-2022 ambulatory Ivan Sams Other [employer] Other Start: 08-14-2022 Office outpatient vi sit 25 minutes Ivan Latrell [facility] Start: 07-03-2022 End: 07-03-2022 ambulatory Ivan Sams Other [employer] Other Start: 07-03-2022 Office consultation new/estab patient 60 min Ivanying Sams [facility] Start: 06-24-2022 End: 06-24-2022 Emergency department patient visit Janene Lew Work Phone: [facility] Work Phone: Start: 06-08-2022 End: 06-09-2022 ambulatory AGUSTINA LEW Facility:[facility] Start: 05-29-2022 End: 05-30-2022 ambulatory AGUSTINA LEW Facility:[facility] Start: 05-13-2022 ambulatory AGUSTINA LEW Facil ity:[facility] Start: 05-12-2022 End: 05-12-2022 ambulatory Christian Hamilton Other [employer] Other Start: 05-12-2022 Office outpatient vi sit 15 minutes Christian Hamilton [facility] Start: 04-25-2022 End: 04-25-2022 ambulatory Halle Webers Other [employer] Other Start: 04-25-2022 Office outpatient ne w 30 minutes Aziz Bakhous [facility] [place] Start: 03-29-2022 End: 03-30-2022 ambulatory RANGELAND MANAGEMENT SPECIALIST JANENE LEW Facility:[facility] Start: 03-23-2022 End: 03-24-2022 ambulatory RANGELAND MANAGEMENT SPECIALIST JANENE LOUANN Facility:[facility] Start: 02-19-2022 End: 02-19-2022 ambulatory RANGELAND MANAGEMENT SPECIALIST JANENE LOUANN Facility:[facility] Start: 02-16-2022 End: 02-16-[address] MYRIAM PERRIN . Facility:[facility] Start: 02-15-2022 ambulatory RANGELAND MANAGEMENT SPECIALIST JANENE LOUANN Facil ity:[facility] Start: 01-25-2022 End: 01-25-2022 Patient encounter procedure Janene Lew Work Phone: [facility] Start: 01-25-2022 End: 01-25-2022 ambulatory Janene Moses Lew Work Phone: [facility] Work Phone: Start: 01-25-2022 Office outpatient vi sit 25 minutes Emma Bolivar [facility] Start: 01-25-2022 End: 01-26-2022 ambulatory RANGELAND MANAGEMENT SPECIALIST JANENE LOUANN Facility:[facility] Start: 01-23-2022 End: 01-24-2022 ambulatory RANGELAND MANAGEMENT SPECIALIST JANENE LEW Facility:[facility] Start: 01-12-2022 End: 01-13-2022 ambulatory RANGELAND MANAGEMENT SPECIALIST JANENE LEW Facility:[facility] Start: 12-21-2021 End: 12-22-2021 ambulatory RANGELAND MANAGEMENT SPECIALIST JANENE LOUANN Facility:[facility] Start: 12-06-2021 End: 12-06-2021 ambulatory Christian Hamilton Other [facility] [employer] Other Start: 12-06-2021 Office outpatient vi sit 15 minutes Christian Hamilton [facility] Neurosurgery Start: 11-30-2021 End: 11-30-2021 ambulatory RANGELAND MANAGEMENT SPECIALIST JANENE EMIZ Facility:H1 Start: 11-28-2021 End: 11-29-2021 ambulatory RANGELAND MANAGEMENT SPECIALIST JANENE LOUANN Facility:H1 Start: 11-14-2021 End: 11-14-2021 ambulatory Janene J Louann Work Phone: [facility] Work Phone: Start: 11-14-2021 End: 11-14-2021 Discharged Recurring Janene Lew Work Phone: [facility]-Physical Therapy [facility] Start: 11-10-2021 End: 11-10-2021 ambulatory Christian Hamilton Other [employer] Other Start: 11-10-2021 Postop follow up vis it related to original px Christian Hamilton [facility] Start: 10-28-2021 End: 10-29-2021 ambulatory RANGELAND MANAGEMENT SPECIALIST JANENE LEW Facility:H1 Start: 10-02-2021 End: 10-02-2021 ambulatory RANGELAND MANAGEMENT SPECIALIST JANENE LEW Facility:H1 Start: 09-29-2021 End: 09-29-2021 ambulatory Christian Hamilton Other [employer] Other Start: 09-29-2021 Postop follow up vis it related to original px Christian Hamilton [facility] Start: 08-30-2021 End: 08-30-2021 ambulatory Christian Hamilton Other [employer] Other Start: 08-30-2021 Postop follow up vis it related to original px Christian Hamilton [facility] Start: 08-12-2021 Admission to [facility] Christian Hamilton [facility] Start: 08-12-2021 End: 08-12-2021 ambulatory Christian Hamilton Other [employer] Other Start: 08-23-2018 End: 08-25-2018 Evaluation and management of inpatient Peng AnnGerardo Merino Facility:[facility] Procedures Date Procedure Procedure Detail Performing Clinician Start: 12-30-2024 End: 12-30-2024 core buildup, including any pins when required Joshua Petersen DMD Work Phone: Start: 12-30-2024 End: 12-30-2024 Documentation of current medications Joshua Petersen DMD Work Phone: Start: 12-30-2024 End: 12-30-2024 endodontic therapy, anterior tooth (excluding final congregational) Joshua Petersen DMD Work Phone: Start: 12-30-2024 End: 12-30-2024 oral hygiene instructions Joshua Lu MD Work Phone: Start: 12-06-2024 ALL CBC WITH AUTO DIFF [...] - periapical each additional radiographic image Joshua Petersen DMD Work Phone: Start: 12-02-2024 End: 12-02-2024 intraoral - periapical first radiographic image Joshua Petersen DMD Work Phone: Start: 12-02-2024 End: 12-02-2024 oral [...] 08-28-2024 ALL CBC WITH AUTO DIFF Janene Emiz EMPLOYMENT INTERVIEWER Work Phone: Start: 06-16-2024 Hemoglobin glycosylated a1c Marya Andrade Petznick DO Work Phone: Start: 02-19-2024 Hemoglobin glycosylated a1c Marya Andrade Petznick DO Work Phone: Start: 12-18-2023 ALL CBC WITH AUTO DIFF Janene Aichholz EMPLOYMENT INTERVIEWER Work Phone: Start: 11-01-2023 End: 11-01-2023 Colonoscopy Janene Reddhholz Work Phone: Start: 09-28-2023 Mammography Janeneamanda mcfarland EMPLOYMENT INTERVIEWER Work Phone: Start: 09-11-2023 History of percutane ous transluminal coronary angioplasty History of PTCA Janene Emiz EMPLOYMENT INTERVIEWER Work Phone: Start: 05-17-2023 Urine culture Janene adamsz Work Phone: Start: 08-23-2018 FLUOROSCOPY OF MULTI PLE CORONARY ARTERIES USING OTH CONTRAST TK GODOY Start: 05-18-2016 Microscopic observat ion [Identifier] in Cervix by Cyto stain Janene Lew EMPLOYMENT INTERVIEWER Work Phone: History of percutane ous transluminal coronary angioplasty History of PTCA Janene Aichholz Work Phone: Plan of Treatment Date Care Activity Detail Author Start: 10-31-2033 Screening for malignant neoplasm of colon [facility] Start: 09-05-2025 Glaucoma screening Diabetes: Retinopathy Screening [facility] Start: 08-28-2025 Urine screening for protein Diabetes: Urine Protein Screening [facility] Start: 05-05-2025 End: 05-05-2025 Patient encounter procedure [facility] Start: 03-19-2025 [place], [facility] Work Phone: Start: 02-03-2025 Hemoglobin A1c measurement Diabetes: Hemoglobin A1C [facility] Start: 01-13-2025 [facility] Work Phone: Start: 12-30-2024 [facility] Work Phone: Start: 12-17-2024 [facility] Work Phone: Start: 12-16-2024 End: 12-16-2024 Patient encounter procedure 12/16/2024 8:30 AM EDT Office Visit [facility] [address] [place] [address] Janene Lew, EMPLOYMENT INTERVIEWER [address] [place] [phone] [facility] Start: 12-15-2024 Influenza vaccination Influenza Vaccine (#1) [facility] Start: 12-04-2024 End: 12-04-2024 Patient encounter procedure 12/04/2024 8:40 AM EDT Office Visit [facility] [address] [place] [address] Janene Lew, EMPLOYMENT INTERVIEWER [address] [place] [phone] [facility] Start: 12-02-2024 Dietary management education, guidance, and counseling Dietary management education, guidance, and counseling [facility] Start: 12-02-2024 End: 12-02-2024 [facility] Work Phone: Start: 11-03-2024 End: 11-03-2024 Patient encounter procedure [facility] Comment on above: Arrived Start: 10-20-2024 End: 10-20-2024 Patient encounter procedure 10/20/2024 10:30 AM EDT Office Visit [facility] [address] [place] [address] Marya Castorena, [address] [place] [address] [facility] Start: 10-04-2024 End: 11-03-2025 MG Breast - bilateral Screening Bilateral screening mammogram Imaging Routine Encounter for screening mammogram for malignant neoplasm of breast Expected: 10/04/2024 (Approximate), Expires: 11/03/2025 [facility] Work Phone: Comment on above: Expected: 10/04/2024 (Approximate), Expi res: 11/03/2025 Start: 09-27-2024 Screening for malignant neoplasm of breast Mammogram [facility] Start: 09-16-2024 Hemoglobin A1c measurement Diabetes: Hemoglobin A1C [facility] Start: 09-03-2024 End: 09-03-2024 Patient encounter procedure 09/03/2024 9:40 AM EDT Office Visit [facility] [address] [place] [address] Janene Lew, EMPLOYMENT INTERVIEWER [address] [place] [address] [facility] Start: 07-15-2024 End: 07-15-2025 XR Ankle - left 3 Views XR ankle 3+ views left Imaging Routine Acute left ankle pain Expected: 07/15/2024, Expires: 07/15/2025 [facility] Work Phone: Comment on above: Expected: 07/15/2024, Expires: Start: 07-15-2024 End: 07-15-2025 XR Foot - left 3 Views XR foot 3+ views left Imaging Routine Acute foot pain, left Expected: 07/15/2024, Expires: 07/15/2025 [facility] Comment on above: Expected: 07/15/2024, Expires: Start: 06-19-2024 End: 06-19-2024 Patient encounter procedure 06/19/2024 10:15 AM EST Office Visit [facility] [address] [place] [phone] Marya Castorena, DO [address] [place] [address] [facility] [address] Start: 06-16-2024 End: 06-16-2024 Patient encounter procedure 06/16/2024 9:15 AM EST Office Visit [facility] [address] [place] [phone] Marya Castorena, DO [address] [place] [address] Arrived [facility] Comment on above: Arrived Start: 05-21-2024 Hemoglobin A1c measurement Diabetes: Hemoglobin A1C [facility] Start: 05-10-2024 Urine screening for protein Diabetes: Urine Protein Screening [facility] Start: 03-06-2024 End: 03-06-2025 25-hydroxyvitamin D3 [Mass/volume] in Serum or Plasma Vitamin D 25 hydroxy Lab Routine Vitamin D deficiency Expected: 03/06/2024 (Approximate), Expires: 03/06/2025 [facility] Comment on above: Expected: 03/06/2024 (Approximate), Expi res: 03/06/2025 Start: 03-06-2024 End: 03-06-2025 CBC W Auto Differential panel - Blood CBC and differential Lab Routine Coronary arteriosclerosis (CMS/HCC) Stage 3b chronic kidney disease (HCC) ([facility]/HCC) Expected: 03/06/2024 (Approximate), Expires: 03/06/2025 [facility] Work Phone: Comment on above: Expected: 03/06/2024 (Approximate), Expi res: 03/06/2025 Start: 03-06-2024 End: 03-06-2025 Cobalamin (Vitamin B12) [Mass/volume] in Serum or Plasma Vitamin B12 Lab Routine Vitamin B12 deficiency Expected: 03/06/2024 (Approximate), Expires: 03/06/2025 [facility] Comment on above: Expected: 03/06/2024 (Approximate), [...] D deficiency Expected: 03/06/2024 (Approximate), Expires: 03/06/2025 [facility] Comment on above: Expected: 03/06/2024 (Approximate), Expi res: 03/06/2025 Start: 03-06-2024 End: 03-06-2025 Ferritin [Mass/volume] in Serum or Plasma Ferritin Lab Routine H/O bariatric surgery Expected: 03/06/2024 (Approximate), Expires: 03/06/2025 [facility] Comment on above: Expected: 03/06/2024 (Approximate), Expi res: 03/06/2025 Start: 03-06-2024 End: 03-06-2025 Iron and Iron binding capacity panel - Serum or Plasma Iron level Lab Routine H/O bariatric surgery Expected: 03/06/2024 (Approximate), Expires: 03/06/2025 [facility] Comment on above: Expected: 03/06/2024 (Approximate), Expi res: 03/06/2025 Start: 03-06-2024 End: 03-06-2025 Lipid 1996 panel - Serum or Plasma Lipid panel Lab Routine Coronary arteriosclerosis (CMS/HCC) Expected: 03/06/2024 (Approximate), Expires: 03/06/2025 [facility] Comment on above: Expected: 03/06/2024 (Approximate), Expi res: 03/06/2025 Start: 03-06-2024 End: 03-06-2025 Microalbumin/Creatinine panel in random Urine Microalbumin / creatinine, urine ratio Lab Routine Primary hypertension (CMS/HCC) Stage 3b chronic kidney disease (HCC) (CMS/HCC) Expected: 03/06/2024 (Approximate), Expires: 03/06/2025 [facility] Comment on above: Expected: 03/06/2024 (Approximate), Expi res: 03/06/2025 Start: 03-06-2024 End: 03-06-2025 Urinalysis complete panel - Urine Urinalysis with reflex microscopic (clean catch) Lab Routine Primary hypertension (CMS/HCC) Stage 3b chronic kidney disease (HCC) (CMS/HCC) Expected: 03/06/2024 (Approximate), Expires: 03/06/2025 [facility] Comment on above: Expected: 03/06/2024 (Approximate), Expi res: 03/06/2025 Start: 03-06-2024 End: 03-06-2024 Patient encounter procedure [facility] Comment on above: Spinal stenosis of [...] (BMI) of 45.0 to 49.9 in adult ([facility]/HCC); Bipolar affective disorder, remission status unspecified ([facility]/HCC); Generalized anxiety disorder (CMS/HCC); Vitamin D deficiency; Vitamin B12 deficiency; H/O bariatric surgery Start: 02-19-2024 End: 02-19-2024 Patient encounter procedure 02/19/2024 9:30 AM EST Office Visit [facility] [address] [place] [phone] Marya Castorena DO [address] [place] [address] [facility] 230 Start: 02-14-2024 Influenza vaccination Influenza Vaccine (#1) [facility] Comment on above: Postponed from 12/16/2023 (Patient Does Not Have Time) Start: 12-25-2023 Hemoglobin A1c measurement Diabetes: Hemoglobin A1C [facility] Start: 12-05-2023 End: 12-04-2024 Basic metabolic 1998 panel - Serum or Plasma Basic metabolic panel Lab Routine Left lower quadrant abdominal pain Expected: 12/05/2023 (Approximate), Expires: 12/04/2024 [facility] Comment on above: Expected: 12/05/2023 (Approximate), Expi res: 12/04/2024 Start: 12-05-2023 End: 12-04-2024 CBC W Auto Differential panel - Blood CBC and differential Lab Routine Left lower quadrant abdominal pain Expected: 12/05/2023 (Approximate), Expires: 12/04/2024 [facility] Comment on above: Expected: 12/05/2023 (Approximate), Expi res: 12/04/2024 Start: 12-05-2023 End: 12-04-2024 XR Abdomen Single view XR ABDOMEN 2 VIEW Imaging Routine Left lower quadrant abdominal pain Expected: 12/05/2023, Expires: 12/04/2024 [facility] Work Phone: Comment on above: Expected: 12/05/2023, Expires: Start: 12-05-2023 End: 12-05-2023 Patient encounter procedure 12/05/2023 8:40 AM EDT Office [facility] [address] [place] [phone] Janene Lew NP [address] [place] [address] Morbid (severe) obesity due to excess calories (CMS/HCC); Body mass index (BMI) 45.0-49.9, adult (CMS/HCC) [facility] Comment on above: Morbid (severe) obesity due to excess ca lories (CMS/HCC); Body mass index (BMI) 45.0-49.9, adult (CMS/HCC) Start: 11-01-2023 [facility] Start: 10-02-2023 [facility] Start: 10-01-2023 Referral to diver assistant [facility] Start: 10-01-2023 Hospital admission [facility] Start: 05-17-2023 Bacteria identified in Urine by Culture [facility] Start: 05-18-2019 Screening for malignant neoplasm of cervix Pap Smear [facility] Start: 2000 Screening for malignant neoplasm of cervix HPV/Cotest [facility] Start: 1970 Screening for malignant neoplasm of colon [facility] Patient Education [facility] Work Phone: Patient referral [facility] Work Phone: Renal function 1999 panel - Serum or Plasma [facility] Renal function 1999 panel - Serum or Plasma [facility] Renal function 1999 panel - Serum or Plasma [facility] Immunizations Immunization Date Immunization Notes Care Provider Fa cili 01-24-2024 SARS-COV-2 (COVID-19 ) vaccine, mRNA, spike protein, LNP, PF, saravanan-sucrose, 30 mcg/0.3 mL Marya Petznick DO Work Phone: [facility] 01-24-2024 Seasonal, trivalent, recombinant, injectable influenza vaccine, preservative free Marya Petznick DO Work Phone: [facility] 01-24-2024 influenza virus vaccine, unspecified formulation Marya Petznick DO Work Phone: [facility] 02-09-2023 influenza, injectabl e, quadrivalent, preservative free Janene Aichholz EMPLOYMENT INTERVIEWER Work Phone: [facility] 02-09-2023 influenza virus vaccine, unspecified formulation Janene Aichholz EMPLOYMENT INTERVIEWER Work Phone: [facility] 07-03-2022 hepatitis A and hepatitis B vaccine Janene Aichholz EMPLOYMENT INTERVIEWER Work Phone: [facility] 07-03-2022 zoster vaccine recombinant Janene Aichholz EMPLOYMENT INTERVIEWER Work Phone: [facility] 01-20-2022 hepatitis A and hepatitis B vaccine Janene Aichholz EMPLOYMENT INTERVIEWER Work Phone: [facility] 12-19-2021 hepatitis A and hepatitis B vaccine Janene Aichholz EMPLOYMENT INTERVIEWER Work Phone: [facility] 12-19-2021 influenza, injectabl e, quadrivalent, preservative free Janene Aichholz EMPLOYMENT INTERVIEWER Work Phone: [facility] 12-19-2021 tetanus toxoid, redu drew diphtheria toxoid, and acellular pertussis vaccine, adsorbed Janene Aichholz EMPLOYMENT INTERVIEWER Work Phone: [facility] 12-19-2021 zoster vaccine recombinant Janene Aichholz EMPLOYMENT INTERVIEWER Work Phone: [facility] 05-17-2021 COVID-19 mRNA, Comirnaty (Pfizer) Janene Aichholz Work Phone: [facility] 05-16-2021 Pfizer Purple Cap SARS-CoV-2 Vaccination Janene Aichholz EMPLOYMENT INTERVIEWER Work Phone: [facility] 09-06-2020 COVID-19 mRNA, Comirnaty (Pfizer) Janene Aichholz Work Phone: [facility] 08-17-2020 Pfizer Purple Cap SARS-CoV-2 Vaccination Janene Aichholz EMPLOYMENT INTERVIEWER Work Phone: [facility] 08-16-2020 COVID-19 mRNA, Comirnaty (Pfizer) Janene Aichholz Work Phone: [facility] 03-10-2020 influenza, injectabl e, quadrivalent, preservative free Janene Aichholz EMPLOYMENT INTERVIEWER Work Phone: [facility] 03-10-2020 pneumococcal polysaccharide vaccine, 23 valent Janene Aichholz EMPLOYMENT INTERVIEWER Work Phone: [facility] 02-16-2020 influenza, seasonal, injectable Janene Aichholz EMPLOYMENT INTERVIEWER Work Phone: [facility] 02-16-2020 pneumococcal polysaccharide vaccine, 23 valent Janene Aichholz EMPLOYMENT INTERVIEWER Work Phone: [facility] 01-31-2019 influenza, injectabl e, quadrivalent, preservative free Janene Aichholz Work Phone: [facility] 01-31-2019 influenza, injectabl e, quadrivalent, contains preservative Christian Hamilton Other [facility] [employer] Other 03-15-2018 influenza, injectabl e, quadrivalent, preservative free Janene Aichholz Work Phone: [facility] 03-15-2018 influenza, injectabl e, quadrivalent, contains preservative Chritsian Hamilton Other [facility] [employer] Other 02-03-2017 influenza, injectabl e, quadrivalent, preservative free Janene Aichholz EMPLOYMENT INTERVIEWER Work Phone: [facility] 04-16-2011 pneumococcal conjuga te vaccine, 13 valent Janene Aichholz EMPLOYMENT INTERVIEWER Work Phone: [facility] 01-14-1997 pneumococcal polysaccharide vaccine, 23 valent Janene Aichholz EMPLOYMENT INTERVIEWER Work Phone: [facility] Healthcare Payers Date Payer Category Payer Private Health Insurance [id number] 2023 [facility] [id number] 2023 Unknown [id number] 2022 Self-pay [id number] 2022 Medicaid [id number] 2.16.840.1.597631.19 2022 Private Health Insurance 2022 Unknown 2010 Self-pay [id number] 1970 Unknown [id number] 2.16.840.1.423511.3.579.2. 647 1970 Unknown [id number] 2.16.840.1.418565.3.579.2. 593 1970 Unknown [id number] 2.16.840.1.598575.3.579.2. 593 1970 Unknown [id number] 2.16.840.1.640043.3.579.2. 593 1970 Unknown [id number] 2.16.840.1.059871.3.579.2. 593 1970 Unknown [id number] 2.16.840.1.124999.3.579.2. 593 1970 Unknown [id number] 2.16.840.1.621246.3.579.2. 593 1970 Unknown [id number] 2.16.840.1.248839.3.579.2. 593 1970 Unknown [id number] 2.16.840.1.082270.3.579.2. 593 1970 Unknown [id number] 2.16.840.1.368500.3.579.2. 593 1970 Unknown [id number] 2.16.840.1.137286.3.579.2. 593 1970 Unknown [id number] 2.16.840.1.507074.3.579.2. 593 1970 Unknown [id number] 2.16.840.1.576113.3.579.2. 593 1970 Unknown [id number] 2.16.840.1.035812.3.579.2. 593 1970 Unknown [id number] 2.16.840.1.795514.3.579.2. 593 1970 Unknown [id number] 2.16.840.1.270192.3.579.2. 593 1970 Unknown [id number] 2.16.840.1.396966.3.579.2. 593 1970 Unknown [id number] 2.16.840.1.395970.3.579.2. 593 1970 Unknown [id number] 2.16.840.1.582889.3.579.2. 718 1970 Unknown [id number] 2.16.840.1.565061.3.579.2. 196 1970 Unknown [id number] 2.16.840.1.471811.3.579.2. 196 1970 Unknown [id number] 2.16.840.1.446997.3.579.2. 196 1970 Unknown [id number] 2.16.840.1.359485.3.579.2. 196 1970 Unknown [id number] 2.16.840.1.047832.3.579.2. 196 1970 Unknown [id number] 2.16.840.1.851366.3.579.2. 9 1970 Unknown [id number] 2.16.840.1.801482.3.579.2. 1259 1970 Unknown [id number] 2.16.840.1.943267.3.579.2. 1259 1970 Unknown [id number] 2.16.840.1.532462.3.579.2. 1258 1970 Unknown [id number] 2.16.840.1.205739.3.579.2. 9 1970 Unknown [id number] 2.16.840.1.647136.3.579.2. 1258 1970 Unknown [id number] 2.16.840.1.274708.3.579.2. 1259 1970 Unknown [id number] 2.16.840.1.668160.3.579.2. 1259 1970 Unknown [id number] 2.16.840.1.048094.3.579.2. 716 1959 Private Health Insurance [id number] 2.16.840.1.518383.19 1959 Unknown [id number] 2.16840.1.084941.19 Medicaid Anthem [place] Medicaid [id number] Private Health Insurance [id number] 2.16.840.1.306925.19 Unknown [employer] BC/BS [id number] Unknown [id number] 2.16.840.1.381252.3.579.2. 531 Unknown [id number] 2.16.840.1.976524.3.579.2. 531 Unknown [id number] 2.16.840.1.396075.3.579.2. 531 Social History Date Type Detail Facility Unknown if ever smoked [employer] Other Start: 05-02-2023 End: 11-18-2024 Sex Assigned At [facility] Start: 08-12-2021 End: 11-01-2023 Tobacco smoking status NDIS Never smoked tobacco (finding) [facility] Start: 1970 Sex Assigned At Female F [facility] Start: 09-20-2023 Tobacco use and exposure [...] file [facility] Sex Female (finding) [facility] How hard is it for you to [...] Start: 12-02-2024 Alcohol intake Alcohol Use Details [facility], [place] Start: 12-02-2024 Tobacco use and exposure Non-Smoking Tobacco Use Details [facility] Sexual Orientation Straight or heterosexual [facility] Work Phone: Start: 08-23-2022 Gender identity Female [facility] NEGATED: Highlighted rowStart: NINF History of tobacco use Passive smoker [facility] NEGATED: Highlighted rowStart: 12-02-2024 Tobacco smoking status NHIS Never smoker [facility] NEGATED: Highlighted rowStart: 12-02-2024 History of tobacco use Current non-smoker [facility] NEGATED: Highlighted rowStart: 12-30-2024 Tobacco smoking status NHIS Unknown if ever smoked [facility] Medical Equipment Procedure Code Equipment Code Equipment Origin al Text Equipment Identifier Dates Once a day Use a s instructed [id number] Start: 07-02-2023 End: 07-01-2024 Fsbs bid [id number] Start: 11-19-2023 End: 11-03-2024 Checking bg leve ls once a day [id number] Start: 11-03-2024 Checking bg leve ls once a day [id number] Start: 11-03-2024 Goals Date Patient Goal Desired Activity /State Functional Status Date Assessment Result Facility 11-03-2024 Patient Health [facility] ionnaire 2 item (PHQ-2) [Reported] [facility] 10-02-2023 Functional status Patient at Baseline [facility] Work Phone: Mental Status Date Assessment Result Facility 10-02-2023 Cognitive function Cognitive Sta tus Patient at Baseline [facility] Work Phone: Clinical Notes 08-30-2021 to 12-30-2024 Note Date & Type Note Facility 12-30-2024 History of Presen t illness Narrative Encounter Date Endo Endo [facility] Work Phone: 1(378) 642-277008-29-2025 Note- proceed with coronary angiogram, discussed risks including stroke, [place], . Patient agreeable to proceed. No associated orders from this encounter found during lookback period of 72 hours.[facility]08-19-2025 Evaluation note* Type Assessment Date assessment Body mass index [BMI] 39.0-39.9, adult [facility] Work Phone: 1(606) 559-127808-19-2025 History of Present illness Narrative* Encounter Date Complaint History Of Prese nt Illness Periodic exam periodic exam [facility] Work Phone: 1(959) 914-793208-19-2025 Instructions* Date Instruction Additional Infor mation Dietary management e ducation, guidance, and counseling Related to Body mass index [BMI] 39.0-39.9, adult [facility] Work Phone: 1(498) 149-356508-13-2025 Evaluation note* Diagnosis Onset Date Resolution Status Admit Date Diabetic nephropathy associated with type 2 diabetes mellitus acute November 26, 025 9:38am Hyperkalemia acute November 26, 2024 9:38am Hyperuricemia acute November 9:38am Hypomagnesemia acute November 9:38am Iron deficiency acute November 262024 9:38am Localized edema acute November 262024 9:38am Morbid obesity acute November 9:38am Stage 3b chronic kidney disease acute November 26 9:38am Vitamin B12 deficiency acute [place] 2024 9:38am Vitamin D deficiency acute Novu st 2024 9:38am Hypertensive nephropathy resolved November 26, 2024 9:38am Hypertension acute December 8:42am Intractable back pain acute Dec 8:42am Morbid obesity acute December 16, 2024 8:42am Stage 3b chronic kidney disease acute December 16 8:42am [facility] Work Phone: 1(192) 243-754407-21-2025 History of Present illness Narrative* Marya Castorena, DO - 11/03/2024 1:31 PM EDTAssociated Problem(s): Type [...] index (BMI) of36.0 to 36.9 in adult ([facility]) Type 2 diabetes mellitus with other circulatory complications ([facility]) Acute foot pain, left Acute left ankle [...] q7 days SC (7.5 MG/0.5ML SOAJ) Labs [facility] HEMOGLOBIN A1C/HEMOGLOBIN.TOTAL:MFR:PT:BLD:QN: 5.2 Outpatient prescription The ASCVD Risk score (Juli DK, et al., 2019) failed to calculate for [...] disease, without long-term current use of insulin ([facility]) During the appointment today all pertinent [...] index (BMI) of36.0 to 36.9 in adult ([facility]) Type 2 diabetes mellitus with other circulatory complications ([facility]) - Primary Other Visit Diagnoses Type 2 [...] in leg swelling. LANCETS (ONETOUCH DELICA PLUS [id number]) [facility] Fsbs [place] I have reviewed and reconciled the history and medication list with the patient today. documented in this encounterParkland Health [id number] [facility] Note Chief Complaint: Patient is here today for surgery clearance. Patient states they found a problem while doing her pre op testing. 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 Patient complains of GARNER with walking really [...] Disp: , Rfl: sacubitril-valsartan (more content not included)...[facility]05-21-2025 History of Present illness Narrative* TOSHIA [...] Hospitalizations in the last year: no Specialist: Shalini [facility] Cardiology, [place], Dr Huffman HCPOA/Living Will: [...] improvement. Hypertensive end-organ damage includes kidney disease, CAD/NJ and heart failure. There is no history [...] 30 mg, Daily Lancets (OneTouch Delica Plus [id number]) misc Fsbs bid metoprolol succinate XL (TOPROL-XL) [...] pain Clostridioides difficile diarrhea 07/02/2023 Coronary arteriosclerosis ([facility]) 04/30/2023 COVID-19 Degenerative disc disease, lumbar [...] herniation 07/02/2023 Microscopic hematuria 04/30/2023 Migraine headache ([facility]) 04/30/2023 Myalgia Nephrolithiasis 07/02/2023 URIEL (obstructive sleep apnea) 04/30/2023 [id number] condition Restless leg syndrome Seasonal allergies 04/30/2023 Spinal stenosis of lumbar region at multiple levels 04/30/2023 Spinal stenosis of thoracolumbar region 04/30/2023 Stage 3 chronic kidney disease due to type 2 diabetes mellitus (HCC) (CMS/[facility]) 04/30/2023 Swelling of both lower extremities 04/30/2023 [...] Problem List Items Addressed This Visit Hypertension ([facility]) Please check blood pressure daily and [...] without long-term current use of insulin (HCC) ([facility]) Check blood sugars daily, notify if [...] Pt is managed by dr castorena Hyperlipidemia [place] On statin therapy as well as fenofibrate Check labs yearly and prn dose changes Encounter for screening mammogram for malignant neoplasm of breast Relevant Orders Bilateral screening mammogram Chronic diastolic heart failure ([facility] Follows with cardiology Current meds: statin, lasix, entresto, b seema, and amlodipine Recommend daily weight, limit sodium, if weight increases by more than 3 pounds in 24 hours notify cardiology Stage 3b chronic kidney disease (HCC) ([facility] Is established with nephrology for mgmt/monitoring Continue to keep blood pressure and DM at goal Class 2 severe obesity due to excess calories with serious comorbidity and body mass index (BMI) of38.0 to 38.9 in adult ([facility] Discussed with patient their BMI (actual, verses [...] - 09/03/2024 6:39 AM EDTAssociated Problem(s): Hyperlipidemia ([facility]) On statin therapy as well as fenofibrate Check labs yearly and prn dose changes * Janene Lew NP - 09/03/2024 6:39 AM EDTAssociated Problem(s): Type 2 diabetes mellitus with stage 3a chronic kidney disease, without long-term current use of insulin ([facility]) ([facility]) Check blood sugars daily, notify if [...] (BMI) of 38.0 to 38.9 in adult ([facility]) Discussed with patient their BMI (actual, [...] - 09/03/2024 6:34 AM EDTAssociated Problem(s): Hypertension (CMS/HCC) Please check blood pressure daily and record DASH diet Limit caffeine Take medication as directed Contact office if chest pain, pressure, dizziness, shortness of breath, swelling legs Recommend slow position changes Continue current meds Cont ASA, statin, b seema documented in this encounterParkland Health [id number] Instructions* Patient Instructions* Janene Lew NP - 09/03/2024 9:[address] Rebolledo if we should change to Vit D2 once a week No other changes in meds or doses documented in this encounterParkland Health [id number] History of Present illness Narrative* Janene Lew NP - 07/15/2024 12:19 PM EDT Contact provider, had a fall the other day on porch, now left ankle and foot pain, would like an xray documented in this encounterParkland Health [id number] History of Present illness Narrative* Marya Castorena [...] been checking due to losing glucometer end april. Stopped drinking all pop in February. Anabel [...] index (BMI) of38.0 to 38.9 in adult (CMS/HCC) Left lower [...] mg Weekly SC (7.5 MG/0.5ML SOAJ) Labs [facility] HEMOGLOBIN A1C/HEMOGLOBIN.TOTAL:MFR:PT:BLD:QN: 5.5 Outpatient prescription The ASCVD [...] disease, without long-term current use of insulin ([facility]) ([facility]) Relevant Orders POCT glycosylated hemoglobin (Hb A1C) docked device (Completed) Class 2 severe obesity due to excess calories with serious comorbidity and body mass index (BMI) of38.0 to 38.9 in adult ([facility]) - Primary Type 2 diabetes mellitus with other circulatory complications ([facility]) During the appointment today all pertinent [...] morning. Do not crush or chew.. LANCETS (T[employer] Green[employer] MaterialsTOUCH DELICA PLUS [id number]) MISC Fsbs bid METOPROLOL SUCCINATE XL (TOPROL-XL) [...] with the patient today. documented in this encounterParkland Health [id number] History of Present illness Narrative* Janene Lew [...] no tightness in the chest. * Janene Lew NP - 03/06/2024 9:20 AM EST Images from [...] problems. Hypertensive end-organ damage includes kidney disease, CAD/NJ and heart failure. Identifiable causes of hypertension [...] mononitrate ER (IMDUR) 30 mg, Daily Lancets (Ambarella Delica Plus [id number]) misc Fsbs bid metoprolol succinate XL (TOPROL-XL) [...] pain Clostridioides difficile diarrhea 07/02/2023 Coronary arteriosclerosis ([facility]) 04/30/2023 COVID-19 Degenerative disc disease, lumbar 07/02/2023 Depression (CMS/[facility]) 04/30/2023 Diabetes mellitus, type 2 (CMS/[facility]) 04/30/2023 Dyspnea 07/02/2023 Elevated liver enzymes 07/02/2023 Family history of cancer Fatigue GERD (gastroesophageal reflux disease) 04/30/2023 H/O bariatric surgery 07/02/2023 Headache 07/02/2023 History of fusion of cervical spine Hyperkalemia Hyperlipidemia ([facility]) 04/30/2023 Hypertension ([facility]) 04/30/2023 Hypomagnesemia 04/30/2023 Insomnia 07/02/2023 Irritable bowel syndrome with diarrhea 07/02/2023 Lower extremity edema 04/30/2023 Lumbar disc herniation 07/02/2023 Microscopic hematuria 04/30/2023 Migraine headache (CMS/HCC) 04/30/2023 Myalgia Nephrolithiasis 07/02/2023 URIEL (obstructive sleep apnea) 04/30/2023 [id number] condition Restless leg syndrome Seasonal allergies 04/30/2023 Spinal stenosis of lumbar region at multiple levels 04/30/2023 Spinal stenosis of thoracolumbar region 04/30/2023 Stage 3 chronic kidney disease due to type 2 diabetes mellitus (HCC) ([facility]) 04/30/2023 Swelling of both lower extremities 04/30/2023 [...] and they will give new mask Hypertension ([facility]) - Primary Please check blood pressure daily and record DASH diet Limit caffeine Take medication as directed Contact office if chest pain, pressure, dizziness, shortness of breath, swelling legs Recommend slow position changes Continue current meds Cont ASA, statin, b seema Relevant Orders Comprehensive metabolic panel Urinalysis with reflex microscopic (clean catch) Microalbumin / creatinine, urine ratio Coronary arteriosclerosis (CMS/[facility]) Relevant Orders CBC and differential Comprehensive metabolic panel Lipid panel RESOLVED: Swelling of both lower extremities Lower extremity edema Continues to take lasix as directed Compression stockings Limiting sodium intake Elevated legs above level of heart as much as possible Relevant Orders Comprehensive metabolic panel Type 2 diabetes mellitus with stage 3a chronic kidney disease, without long-term current use of insulin (HCC) (CMS/[facility]) Check blood sugars daily, notify if [...] Relevant Orders Iron level Ferritin Bipolar disorder ([facility]) Continue with psych for management of her mental health Generalized anxiety disorder ([facility]) Continue with psych for management of symptoms and meds Stage 3b chronic kidney disease (HCC) ([facility] Is established with nephrology for mgmt/monitoring Continue [...] index (BMI) of45.0 to 49.9 in adult ([facility]) Has lost approx 64 pounds since [...] 6:47 AM ESTAssociated Problem(s): Generalized anxiety disorder ([facility]) Continue with psych for management of symptoms and meds * Janene Lew NP - 03/06/2024 6:47 AM ESTAssociated Problem(s): Bipolar disorder ([facility]) Continue with psych for management of her mental health * Janene Lew NP - 03/06/2024 6:46 AM ESTAssociated Problem(s): Class 3 severe obesity due to excess calories with serious comorbidity and body mass index (BMI) of 45.0 to 49.9 in adult ([facility]) Has lost approx 64 pounds since [...] disease, without long-term current use of insulin ([facility]) ([facility]) Check blood sugars daily, notify if [...] Problem(s): Stage 3b chronic kidney disease (HCC) ([facility]/HCC) Is established with nephrology for mgmt/monitoring Continue [...] Will complete her FMLA documented in this [facility]11-21-2024 Instructions* Patient Instructions* Janene Lew NP - 03/06/2024 9:20 AM EST Call CPAP company: see if they need a compliance report, they should be able to down load that for you Keep up great work with diabetes and weight loss documented in this [facility]11-05-2024 History of Present illness Narrative* Marya Castorena DO - 02/19/2024 9:49 AM ESTAssociated Problem(s): Type 2 diabetes mellitus with other circulatory complications ([facility]) During the appointment today all pertinent [...] weekly. Will increase her mounjaro. * Marya Castorena DO - 02/19/2024 9:30 AM EST Images from [...] index (BMI) of45.0 to 49.9 in adult (CMS/HCC) Left lower quadrant abdominal pain Type 2 diabetes mellitus with other circulatory complications (CMS/HCC) Social History Tobacco Use Smoking status: Never [...] disease, without long-term current use of insulin ([facility]) ([facility]) Class 3 severe obesity due to excess calories with serious comorbidity and body mass index (BMI) of45.0 to 49.9 in adult ([facility]) Type 2 diabetes mellitus with other circulatory complications ([facility]) - Primary During the appointment today [...] morning. Do not crush or chew.. LANCETS ([employer] Homecare & InfusionUCH DELICA PLUS [id number]) MIS Fsbs bid METOPROLOL SUCCINATE XL (TOPROL-XL) [...] with the patient today. documented in this encounterParkland Health [id number] NoteBELLEVUE CLINIC Cardiology Clinic Note Chief Complaint: [...] S1, S2 present. R (more content not included)...[facility]08-21-2024 History of Present illness Narrative* Janene [...] when standing and laying down. * Janene Lew NP - 12/05/2023 8:40 AM EDT Images from [...] Daily, Do not crush or chew. Lancets (Game Face HockeyTouch Delica Plus [id number]) misc Fsbs bid metoprolol succinate XL (TOPROL-XL) [...] Nephrolithiasis 07/02/2023 URIEL (obstructive sleep apnea) 04/30/2023 [id number] condition Restless leg syndrome Seasonal allergies 04/30/2023 [...] Visit Body mass index (BMI) 45.0-49.9, adult (CMS/HCC) Stage 3b chronic kidney disease (HCC) (CMS/HCC) Restless leg syndrome Continue mirapex Morbid (severe) obesity due to excess calories (CMS/HCC) Left lower quadrant abdominal pain - Primary Will check xray to r/o perforation Will treat for diverticulitis: shannanro and flagyl Fu if not better Advised [...] panel CBC and differential documented in this encounterParkland Health [id number] Evaluation note* Encounter Date Diagnosis Assessment Notes [...] - G89.29) Proceed with current treatment plan [employer] Other 03-20-2023 Evaluation note* Encounter Date Diagnosis [...] negative findings were considered in medical decision-making. [employer] Other 03-11-2023 Hospital Discharge instructions Additional Instructions [...] bowel control high fever or any other [facility] Work Phone: [phone] Evaluation note* Encounter Date Diagnosis Assessment Notes [...] [facility] Other 01-10-2023 Evaluation note* Encounter Date Diagnosis [...] obesity (ICD-10 - E66.01) Encouraged weight loss [facility] Other 10-12-2022 Evaluation note* Encounter Date Diagnosis [...] strap. A prescription was sent to the [facility] for new supplies throughout the year, as [...] sleepiness, or poor response to treatment. . [employer] Other 08-23-2022 Evaluation note* Encounter Date Diagnosis [...] of thoracolumbar intervertebral disc (ICD-10 - M51.25) [facility] Other 07-28-2022 Evaluation note* Encounter Date Diagnosis [...] a med check and PT follow up [employer] Other 06-16-2022 Evaluation note* Encounter Date Diagnosis [...] labor Sep, Thoracic myelopathy (ICD-10 - M47.14) [facility] Other 05-17-2022 Evaluation note* Encounter Date Diagnosis [...] Overall she is making a good recovery [facility] [employer] Other consult note* Clinical Note Date No Information [facility] Work Phone: Discharge summary* Clinical Note Date No Information [facility] Work Phone: Evaluation noteNo InformationN[facility]Well[facility] [employer] Other evaluation noteNo assessment information available [facility] Work Phone: Evaluation note* Diagnosis Onset [...] renal disease reso lved Hypertensive nephropathy res ved [facility] Work Phone: Evaluation note* Diagnosis Onset [...] D deficiency acute Hypertensive nephropathy res ved [facility] Work Phone: Evaluation note* Diagnosis Primary hypertension (CMS/HCC)- Primary Unspecified essential hypertension Gastroesophageal reflux disease, unspecified whether esophagitis present Microscopic hematuria Lower extremity edema Edema Type 2 diabetes mellitus without complication, without long-term current use of insulin (CMS/HCC) Stage 3 chronic kidney disease due to type 2 diabetes mellitus (HCC) (CMS/HCC) Mixed hyperlipidemia (CMS/HCC) Mixed hyperlipidemia Migraine without aura and without status migrainosus, not intractable ([facility]) Encounter for screening mammogram for malignant neoplasm of breast Colon cancer screening Special screening for malignant neoplasms, colon BMI 50.0-59.9, adult ([facility]) Heel pain, bilateral Type 2 diabetes mellitus without complication, without long-term current use of insulin ([facility])- Primary History of anuria Stage 3 chronic kidney disease due to type 2 diabetes mellitus (HCC) ([facility]) BMI 50.0-59.9, adult ([facility]) URIEL (obstructive sleep apnea) Obstructive sleep apnea (adult) (pediatric) Primary hypertension ([facility]) Unspecified essential hypertension Chronic diastolic heart failure ([facility]) Chronic diastolic heart failure Depression, unspecified depression type ([facility]) Type 2 diabetes mellitus without complication, without long-term current use of insulin ([facility])- Primary Stage 3 chronic kidney disease due to type 2 diabetes mellitus (HCC) ([facility]) BMI 50.0-59.9, adult ([facility]) Lower extremity edema Edema Dental infection- Primary Type 2 diabetes mellitus with stage 3 chronic kidney disease, without long-term current use of insulin, unspecified whether stage 3a or 3b CKD ([facility]) ([facility])- Primary Bipolar affective disorder, remission status unspecified ([facility]) Restless leg syndrome Restless legs syndrome (RLS) URIEL (obstructive sleep apnea) Obstructive sleep apnea (adult) (pediatric) Primary hypertension ([facility]) Unspecified essential hypertension Chronic diastolic heart failure ([facility]) Chronic diastolic heart failure Stage 3 chronic kidney disease due to type 2 diabetes mellitus (HCC) ([facility] Seasonal allergies Allergic rhinitis, cause unspecified BMI 50.0-59.9, adult ([facility]) Type 2 diabetes mellitus with stage 4 chronic kidney disease, without long-term current use of insulin ([facility])- Primary Type 2 diabetes mellitus without complication, without long-term current use of insulin ([facility]) Left lower quadrant abdominal pain- Primary Morbid (severe) obesity due to excess calories ([facility]) Body mass index (BMI) 45.0-49.9, adult ([facility]) Restless leg syndrome Restless legs syndrome (RLS) Stage 3b chronic kidney disease (HCC) ([facility]) Type 2 diabetes mellitus with other circulatory complications ([facility] Primary Type 2 diabetes mellitus with stage 4 chronic kidney disease, without long-term current use of insulin ([facility]) Type 2 diabetes mellitus with stage 3a chronic kidney disease, without long-term current use of insulin ([facility]) ([facility]) Class 3 severe obesity due to excess calories with serious comorbidity and body mass index (BMI) of 45.0 to 49.9 in adult ([facility]) documented in [facility] encounter [facility] HealthcareEvaluation note* Diagnosis Primary hypertension ([facility])- Primary Unspecified essential hypertension Gastroesophageal reflux disease, unspecified whether esophagitis present Microscopic hematuria Lower extremity edema Edema Type 2 diabetes mellitus without complication, without long-term current use of insulin ([facility]) Stage 3 chronic kidney disease due to type 2 diabetes mellitus (HCC) ([facility]) Mixed hyperlipidemia ([facility]) Mixed hyperlipidemia Migraine without aura and without status migrainosus, not intractable ([facility]) Encounter for screening mammogram for malignant neoplasm of breast Colon cancer screening Special screening for malignant neoplasms, colon BMI 50.0-59.9, adult ([facility]) Heel pain, bilateral Type 2 diabetes mellitus without complication, without long-term current use of insulin ([facility])- Primary History of anuria Stage 3 chronic kidney disease due to type 2 diabetes mellitus ([facility]) ([facility]) BMI 50.0-59.9, adult ([facility]) URIEL (obstructive sleep apnea) Obstructive sleep apnea (adult) (pediatric) Primary hypertension ([facility]) [facility]specified essential hypertension Chronic diastolic heart failure ([facility]) Chronic diastolic heart failure Depression, unspecified depression type ([facility]) Type 2 diabetes mellitus without complication, without long-term current use of insulin ([facility])- Primary Stage 3 chronic kidney disease due to type 2 diabetes mellitus (HCC) ([facility]) BMI 50.0-59.9, adult ([facility]) Lower extremity edema Edema Dental infection- Primary Type 2 diabetes mellitus with stage 3 chronic kidney disease, without long-term current use of insulin, unspecified whether stage 3a or 3b CKD ([facility]) ([facility])- Primary Bipolar affective disorder, remission status unspecified ([facility]) Restless leg syndrome Restless legs syndrome (RLS) URIEL (obstructive sleep apnea) Obstructive sleep apnea (adult) (pediatric) Primary hypertension ([facility]) Unspecified essential hypertension Chronic diastolic heart failure ([facility]) Chronic diastolic heart failure Stage 3 chronic kidney disease due to type 2 diabetes mellitus (HCC) ([facility]) Seasonal allergies Allergic rhinitis, cause unspecified BMI 50.0-59.9, adult ([facility]) Type 2 diabetes mellitus with stage 4 chronic kidney disease, without long-term current use of insulin ([facility])- Primary Type 2 diabetes mellitus without complication, without long-term current use of insulin ([facility]) Left lower quadrant abdominal pain- Primary Morbid (severe) obesity due to excess calories ([facility]) Body mass index (BMI) 45.0-49.9, adult ([facility]) Restless leg syndrome Restless legs syndrome (RLS) Stage 3b chronic kidney disease (HCC) ([facility]) Type 2 diabetes mellitus with other circulatory complications ([facility])- Primary Type 2 diabetes mellitus with stage 4 chronic kidney disease, without long-term current use of insulin ([facility]) Type 2 diabetes mellitus with stage 3a chronic kidney disease, without long-term current use of insulin (HCC) ([facility]) Class 3 severe obesity due to excess calories with serious comorbidity and body mass index (BMI) of 45.0 to 49.9 in adult ([facility]) Muscle spasm Spasm of muscle documented in this encounter [facility] HealthcareEvaluation note* Diagnosis Primary hypertension ([facility])- Primary Unspecified essential hypertension Gastroesophageal reflux disease, unspecified whether esophagitis present Microscopic hematuria Lower extremity edema Edema Type 2 diabetes mellitus without complication, without long-term current use of insulin ([facility]) Stage 3 chronic kidney disease due to type 2 diabetes mellitus (HCC) ([facility]) Mixed hyperlipidemia ([facility]) Mixed hyperlipidemia Migraine without aura and without status migrainosus, not intractable ([facility]) Encounter for screening mammogram for malignant neoplasm of breast Colon cancer screening Special screening for malignant neoplasms, colon BMI 50.0-59.9, adult ([facility]) Heel pain, bilateral Type 2 diabetes mellitus without complication, without long-term current use of insulin ([facility])- Primary History of anuria Stage 3 chronic kidney disease due to type 2 diabetes mellitus (HCC) ([facility]) BMI 50.0-59.9, adult ([facility]) URIEL (obstructive sleep apnea) Obstructive sleep apnea (adult) (pediatric) Primary hypertension ([facility]) Unspecified essential hypertension Chronic diastolic heart failure ([facility]) Chronic diastolic heart failure Depression, unspecified depression type ([facility]) Type 2 diabetes mellitus without complication, without long-term current use of insulin ([facility])- Primary Stage 3 chronic kidney disease due to type 2 diabetes mellitus (HCC) ([facility]) BMI 50.0-59.9, adult ([facility]) Lower extremity edema Edema Dental infection- Primary Type 2 diabetes mellitus with stage 3 chronic kidney disease, without long-term current use of insulin, unspecified whether stage 3a or 3b CKD (HCC) [place] Primary Bipolar affective disorder, remission status unspecified ([facility]) Restless leg syndrome Restless legs syndrome (RLS) URIEL (obstructive sleep apnea) Obstructive sleep apnea (adult) (pediatric) Primary hypertension ([facility]) Unspecified essential hypertension Chronic diastolic heart failure ([facility]) Chronic diastolic heart failure Stage 3 chronic kidney disease due to type 2 diabetes mellitus ([facility]) [place] Seasonal allergies Allergic rhinitis, cause unspecified BMI 50.0-59.9, adult ([facility] Type 2 diabetes mellitus with stage 4 chronic kidney disease, without long-term current use of insulin ([facility] Primary Type 2 diabetes mellitus without complication, without long-term current use of insulin ([facility]) Left lower quadrant abdominal pain- Primary Morbid (severe) obesity due to excess calories ([facility]) Body mass index (BMI) 45.0-49.9, adult [place] Restless leg syndrome Restless legs syndrome (RLS) Stage 3b chronic kidney disease (HCC) ([facility] Type 2 diabetes mellitus with other circulatory complications [place] Primary Type 2 diabetes mellitus with stage 4 chronic kidney disease, without long-term current use of insulin ([facility] Type 2 diabetes mellitus with stage 3a chronic kidney disease, without long-term current use of insulin ([facility]) ([facility] Class 3 severe obesity due to excess calories with serious comorbidity and body mass index (BMI) of 45.0 to 49.9 in adult ([facility]) Primary hypertension ([facility])- Primary Unspecified essential hypertension Spinal stenosis of lumbar region at multiple levels Restless leg syndrome Restless legs syndrome (RLS) URIEL (obstructive sleep apnea) Obstructive sleep apnea (adult) (pediatric) Coronary arteriosclerosis ([facility]) Coronary atherosclerosis of unspecified type of vessel, [place] or graft Stage 3b chronic kidney disease (HCC) ([facility]) Swelling of both lower extremities Lower extremity edema Edema Type 2 diabetes mellitus with stage 3a chronic kidney disease, without long-term current use of insulin ([facility]) ([facility]) Class 3 severe obesity due to excess calories with serious comorbidity and body mass index (BMI) of 45.0 to 49.9 in adult ([facility]) Bipolar affective disorder, remission status unspecified ([facility]) Generalized anxiety disorder ([facility]) Generalized anxiety disorder Vitamin D deficiency Vitamin B12 deficiency Other B-complex deficiencies H/O bariatric surgery Acute non-recurrent pansinusitis documented in this encounter [facility] HealthcareEvaluation note* Diagnosis Primary hypertension ([facility])- Primary Unspecified essential hypertension Gastroesophageal reflux disease, unspecified whether esophagitis present Microscopic hematuria Lower extremity edema Edema Type 2 diabetes mellitus without complication, without long-term current use of insulin ([facility]) Stage 3 chronic kidney disease due to type 2 diabetes mellitus (HCC) ([facility]) Mixed hyperlipidemia ([facility]) Mixed hyperlipidemia Migraine without aura and without status migrainosus, not intractable ([facility]) Encounter for screening mammogram for malignant neoplasm of breast Colon cancer screening Special screening for malignant neoplasms, colon BMI 50.0-59.9, adult ([facility]) Heel pain, bilateral Type 2 diabetes mellitus without complication, without long-term current use of insulin ([facility])- Primary History of anuria Stage 3 chronic kidney disease due to type 2 diabetes mellitus (HCC) ([facility]) BMI 50.0-59.9, adult ([facility]) URIEL (obstructive sleep apnea) Obstructive sleep apnea (adult) (pediatric) Primary hypertension ([facility]) Unspecified essential hypertension Chronic diastolic heart failure ([facility]) Chronic diastolic heart failure Depression, unspecified depression type ([facility]) Type 2 diabetes mellitus without complication, without long-term current use of insulin ([facility])- Primary Stage 3 chronic kidney disease due to type 2 diabetes mellitus (HCC) ([facility]) BMI 50.0-59.9, adult ([facility]) Lower extremity edema Edema Dental infection- Primary Type 2 diabetes mellitus with stage 3 chronic kidney disease, without long-term current use of insulin, unspecified whether stage 3a or 3b CKD (HCC) ([facility])- Primary Bipolar affective disorder, remission status unspecified ([facility]) Restless leg syndrome Restless legs syndrome (RLS) URIEL (obstructive sleep apnea) Obstructive sleep apnea (adult) (pediatric) Primary hypertension ([facility]) Unspecified essential hypertension Chronic diastolic heart failure ([facility]) Chronic diastolic heart failure Stage 3 chronic kidney disease due to type 2 diabetes mellitus (HCC) ([facility]) Seasonal allergies Allergic rhinitis, cause unspecified BMI 50.0-59.9, adult ([facility]) Type 2 diabetes mellitus with stage 4 chronic kidney disease, without long-term current use of insulin ([facility])- Primary Type 2 diabetes mellitus without complication, without long-term current use of insulin ([facility]) Left lower quadrant abdominal pain- Primary Morbid (severe) obesity due to excess calories ([facility]) Body mass index (BMI) 45.0-49.9, adult ([facility]) Restless leg syndrome Restless legs syndrome (RLS) Stage 3b chronic kidney disease (HCC) ([facility]) Type 2 diabetes mellitus with other circulatory complications ([facility])- Primary Type 2 diabetes mellitus with stage 4 chronic kidney disease, without long-term current use of insulin ([facility]) Type 2 diabetes mellitus with stage 3a chronic kidney disease, without long-term current use of insulin ([facility]) ([facility]) Class 3 severe obesity due to excess calories with serious comorbidity and body mass index (BMI) of 45.0 to 49.9 in adult ([facility]) Primary hypertension ([facility])- Primary Unspecified essential hypertension Spinal stenosis of lumbar region at multiple levels Restless leg syndrome Restless legs syndrome (RLS) URIEL (obstructive sleep apnea) Obstructive sleep apnea (adult) (pediatric) Coronary arteriosclerosis ([facility]) Coronary atherosclerosis of unspecified type of vessel, [place] or graft Stage 3b chronic kidney disease (HCC) ([facility]) Swelling of both lower extremities Lower extremity edema Edema Type 2 diabetes mellitus with stage 3a chronic kidney disease, without long-term current use of insulin ([facility]) ([facility]) Class 3 severe obesity due to excess calories with serious comorbidity and body mass index (BMI) of 45.0 to 49.9 in adult ([facility]) Bipolar affective disorder, remission status unspecified ([facility]) Generalized anxiety disorder ([facility]) Generalized anxiety disorder Vitamin D deficiency Vitamin B12 deficiency Other B-complex deficiencies H/O bariatric surgery Acute non-recurrent pansinusitis Restless leg syndrome Restless legs syndrome (RLS) documented in this encounter [facility] HealthcareEvaluation note* Diagnosis Left lower quadrant abdominal pain- Primary Morbid (severe) obesity due to excess calories ([facility]) Body mass index (BMI) 45.0-49.9, adult ([facility]) Restless leg syndrome Restless legs syndrome (RLS) Stage 3b chronic kidney disease (HCC) ([facility]) documented in this encounter [facility] HealthcareEvaluation note* Diagnosis Muscle spasm Spasm of muscle documented in this encounter [facility]Evaluation note* Diagnosis Restless leg syndrome Restless legs syndrome (RLS) documented in this encounter [facility] HealthcareEvaluation note* Diagnosis Antibiotic-induced yeast infection- Primary documented in this encounter [facility] HealthcareEvaluation note* Diagnosis Type 2 diabetes mellitus with stage 4 chronic kidney disease, without long-term current use of insulin ([facility])- Primary documented in this encounter [facility] HealthcareEvaluation note[facility] Diagnosis Primary hypertension ([facility] Unspecified essential hypertension documented in this encounter [facility] HealthcareEvaluation note* Diagnosis Primary hypertension ([facility])- Primary Unspecified essential hypertension Gastroesophageal reflux disease, unspecified whether esophagitis present Microscopic hematuria Lower extremity edema Edema Type 2 diabetes mellitus without complication, without long-term current use of insulin ([facility]) Stage 3 chronic kidney disease due to type 2 diabetes mellitus (HCC) ([facility]) Mixed hyperlipidemia ([facility]) Mixed hyperlipidemia Migraine without aura and without status migrainosus, not intractable ([facility]) Encounter for screening mammogram for malignant neoplasm of breast Colon cancer screening Special screening for malignant neoplasms, colon BMI 50.0-59.9, adult ([facility]) Heel pain, bilateral Type 2 diabetes mellitus without complication, without long-term current use of insulin ([facility])- Primary History of anuria Stage 3 chronic kidney disease due to type 2 diabetes mellitus (HCC) ([facility]) BMI 50.0-59.9, adult ([facility]) URIEL (obstructive sleep apnea) Obstructive sleep apnea (adult) (pediatric) Primary hypertension ([facility]) Unspecified essential hypertension Chronic diastolic heart failure ([facility]) Chronic diastolic heart failure Depression, unspecified depression type ([facility]) Type 2 diabetes mellitus without complication, without long-term current use of insulin ([facility])- Primary Stage 3 chronic kidney disease due to type 2 diabetes mellitus (HCC) ([facility]) BMI 50.0-59.9, adult ([facility]) Lower extremity edema Edema Dental infection- Primary Type 2 diabetes mellitus with stage 3 chronic kidney disease, without long-term current use of insulin, unspecified whether stage 3a or 3b CKD (HCC) ([facility])- Primary Bipolar affective disorder, remission status unspecified [place] Restless leg syndrome Restless legs syndrome (RLS) URIEL (obstructive sleep apnea) Obstructive sleep apnea (adult) (pediatric) Primary hypertension ([facility]) Unspecified essential hypertension Chronic diastolic heart failure ([facility]) Chronic diastolic heart failure Stage 3 chronic kidney disease due to type 2 diabetes mellitus ([facility]) ([facility]) Seasonal allergies Allergic rhinitis, cause unspecified BMI 50.0-59.9, adult [place] Type 2 diabetes mellitus with stage 4 chronic kidney disease, without long-term current use of insulin ([facility] Primary Type 2 diabetes mellitus without complication, without long-term current use of insulin [place] Left lower quadrant abdominal pain- Primary Morbid (severe) obesity due to excess calories ([facility]) Body mass index (BMI) 45.0-49.9, adult ([facility] HE[facility]) Restless leg syndrome Restless legs syndrome (RLS) Stage 3b chronic kidney disease (HCC) [place] Type 2 diabetes mellitus with other circulatory complications [place] Primary Type 2 diabetes mellitus with stage 4 chronic kidney disease, without long-term current use of insulin [place] Type 2 diabetes mellitus with stage 3a chronic kidney disease, without long-term current use of insulin ([facility]) [facility] Class 3 severe obesity due to excess calories with serious comorbidity and body mass index (BMI) of 45.0 to 49.9 in adult ([facility]) Primary hypertension ([facility])- Primary Unspecified essential hypertension Spinal stenosis of lumbar region at multiple levels Restless leg syndrome Restless legs syndrome (RLS) URIEL (obstructive sleep apnea) Obstructive sleep apnea (adult) (pediatric) Coronary arteriosclerosis ([facility]) Coronary atherosclerosis of unspecified type of vessel, [place] or graft Stage 3b chronic kidney disease (HCC) ([facility]) Swelling of both lower extremities Lower extremity edema Edema Type 2 diabetes mellitus with stage 3a chronic kidney disease, without long-term current use of insulin ([facility]) [facility] Class 3 severe obesity due to excess calories with serious comorbidity and body mass index (BMI) of 45.0 to 49.9 in adult ([facility]) Bipolar affective disorder, remission status unspecified ([facility]) Generalized anxiety disorder ([facility]) Generalized anxiety disorder Vitamin D deficiency Vitamin B12 deficiency Other B-complex deficiencies H/O bariatric surgery Acute non-recurrent pansinusitis Muscle spasm Spasm of muscle documented in this encounter [facility] HealthcareEvaluation note* Diagnosis Primary hypertension ([facility])- Primary Unspecified essential hypertension Gastroesophageal reflux disease, unspecified whether esophagitis present Microscopic hematuria Lower extremity edema Edema Type 2 diabetes mellitus without complication, without long-term current use of insulin ([facility]) Stage 3 chronic kidney disease due to type 2 diabetes mellitus (HCC) [place] Mixed hyperlipidemia [place] Mixed hyperlipidemia Migraine without aura and without status migrainosus, not intractable ([facility] Encounter for screening mammogram for malignant neoplasm of breast Colon cancer screening Special screening for malignant neoplasms, colon BMI 50.0-59.9, adult [place] Heel pain, bilateral Type 2 diabetes mellitus without complication, without long-term current use of insulin ([facility] Primary History of anuria Stage 3 chronic kidney disease due to type 2 diabetes mellitus (HCC) ([facility]) BMI 50.0-59.9, adult ([facility]) URIEL (obstructive sleep apnea) Obstructive sleep apnea (adult) (pediatric) Primary hypertension ([facility]) Unspecified essential hypertension Chronic diastolic heart failure ([facility]) Chronic diastolic heart failure Depression, unspecified depression type [place] Type 2 diabetes mellitus without complication, without long-term current use of insulin [place] Primary Stage 3 chronic kidney disease due to type 2 diabetes mellitus (HCC) ([facility]) BMI 50.0-59.9, adult ([facility]) Lower extremity edema Edema Dental infection- Primary Type 2 diabetes mellitus with stage 3 chronic kidney disease, without long-term current use of insulin, unspecified whether stage 3a or 3b CKD (HCC) ([facility])- Primary Bipolar affective disorder, remission status unspecified ([facility]) Restless leg syndrome Restless legs syndrome (RLS) URIEL (obstructive sleep apnea) Obstructive sleep apnea (adult) (pediatric) Primary hypertension ([facility]) Unspecified essential hypertension Chronic diastolic heart failure ([facility]) Chronic diastolic heart failure Stage 3 chronic kidney disease due to type 2 diabetes mellitus (HCC) ([facility]) Seasonal allergies Allergic rhinitis, cause unspecified BMI 50.0-59.9, adult ([facility]) Type 2 diabetes mellitus with stage 4 chronic kidney disease, without long-term current use of insulin ([facility])- Primary Type 2 diabetes mellitus without complication, without long-term current use of insulin ([facility]) Left lower quadrant abdominal pain- Primary Morbid (severe) obesity due to excess calories ([facility]) Body mass index (BMI) 45.0-49.9, adult ([facility]) Restless leg syndrome Restless legs syndrome (RLS) Stage 3b chronic kidney disease (HCC) [place] Type 2 diabetes mellitus with other circulatory complications [place] Primary Type 2 diabetes mellitus with stage 4 chronic kidney disease, without long-term current use of insulin [place] Type 2 diabetes mellitus with stage 3a chronic kidney disease, without long-term current use of insulin ([facility]) [facility] Class 3 severe obesity due to excess calories with serious comorbidity and body mass index (BMI) of 45.0 to 49.9 in adult ([facility]) Primary hypertension ([facility])- Primary Unspecified essential hypertension Spinal stenosis of lumbar region at multiple levels Restless leg syndrome Restless legs syndrome (RLS) URIEL (obstructive sleep apnea) Obstructive sleep apnea (adult) (pediatric) Coronary arteriosclerosis ([facility]) Coronary atherosclerosis of unspecified type of vessel, [place] or graft Stage 3b chronic kidney disease (HCC) ([facility]) Swelling of both lower extremities Lower extremity edema Edema Type 2 diabetes mellitus with stage 3a chronic kidney disease, without long-term current use of insulin (HCC) [place] Class 3 severe obesity due to excess calories with serious comorbidity and body mass index (BMI) of 45.0 to 49.9 in adult ([facility]) Bipolar affective disorder, remission status unspecified [place] Generalized anxiety disorder ([facility]) Generalized anxiety disorder Vitamin D deficiency Vitamin B12 deficiency Other B-complex deficiencies H/O bariatric surgery Acute non-recurrent pansinusitis Class 2 severe obesity due to excess calories with serious comorbidity and body mass index (BMI) of 38.0 to 38.9 in adult ([facility])- Primary Type 2 diabetes mellitus with other circulatory complications ([facility]) Type 2 diabetes mellitus with stage 3a chronic kidney disease, without long-term current use of insulin (HCC) ([facility]) documented in this encounter [facility] HealthcareEvaluation note* [facility] Primary hypertension ([facility])- Primary Unspecified essential hypertension Gastroesophageal reflux disease, unspecified whether esophagitis present Microscopic hematuria Lower extremity edema Edema Type 2 diabetes mellitus without complication, without long-term current use of insulin Stage 3 chronic kidney disease due to type 2 diabetes mellitus (HCC) ([facility]) Mixed hyperlipidemia ([facility]) Mixed hyperlipidemia Migraine without aura and without status migrainosus, not intractable ([facility]) Encounter for screening mammogram for malignant neoplasm of breast Colon cancer screening Special screening for malignant neoplasms, colon BMI 50.0-59.9, adult ([facility]) Heel pain, bilateral Type 2 diabetes mellitus without complication, without long-term current use of insulin- Primary History of anuria Stage 3 chronic kidney disease due to type 2 diabetes mellitus (HCC) ([facility]) BMI 50.0-59.9, adult ([facility]) URIEL (obstructive sleep apnea) Obstructive sleep apnea (adult) (pediatric) Primary hypertension ([facility]) Unspecified essential hypertension Chronic diastolic heart failure ([facility]) Chronic diastolic heart failure Depression, unspecified depression type ([facility]) Type 2 diabetes mellitus without complication, without long-term current use of insulin- Primary Stage 3 chronic kidney disease due to type 2 diabetes mellitus (HCC) ([facility]) BMI 50.0-59.9, adult ([facility]) Lower extremity edema Edema Dental infection- Primary Type 2 diabetes mellitus with stage 3 chronic kidney disease, without long-term current use of insulin, unspecified whether stage 3a or 3b CKD (HCC) ([facility])- Primary Bipolar affective disorder, remission status unspecified ([facility]) Restless leg syndrome Restless legs syndrome (RLS) URIEL (obstructive sleep apnea) Obstructive sleep apnea (adult) (pediatric) Primary hypertension ([facility]) Unspecified essential hypertension Chronic diastolic heart failure ([facility]) Chronic diastolic heart failure Stage 3 chronic kidney disease due to type 2 diabetes mellitus (HCC) ([facility]) Seasonal allergies Allergic rhinitis, cause unspecified BMI 50.0-59.9, adult ([facility]) Type 2 diabetes mellitus with stage 4 chronic kidney disease, without long-term current use of insulin ([facility])- Primary Type 2 diabetes mellitus without complication, without long-term current use of insulin Left lower quadrant abdominal pain- Primary Morbid (severe) obesity due to excess calories ([facility]) Body mass index (BMI) 45.0-49.9, adult ([facility]) Restless leg syndrome Restless legs syndrome (RLS) Stage 3b chronic kidney disease (HCC) ([facility]) Type 2 diabetes mellitus with other circulatory complications- Primary Type 2 diabetes mellitus with stage 4 chronic kidney disease, without long-term current use of insulin ([facility]) Type 2 diabetes mellitus with stage 3a chronic kidney disease, without long-term current use of insulin (HCC) ([facility]) Class 3 severe obesity due to excess calories with serious comorbidity and body mass index (BMI) of 45.0 to 49.9 in adult Primary hypertension ([facility])- Primary Unspecified essential hypertension Spinal stenosis of lumbar region at multiple levels Restless leg syndrome Restless legs syndrome (RLS) URIEL (obstructive sleep apnea) Obstructive sleep apnea (adult) (pediatric) Coronary arteriosclerosis ([facility]) Coronary atherosclerosis of unspecified type of vessel, [place] or graft Stage 3b chronic kidney disease (HCC) ([facility]) Swelling of both lower extremities Lower extremity edema Edema Type 2 diabetes mellitus with stage 3a chronic kidney disease, without long-term current use of insulin ([facility]) ([facility]) Class 3 severe obesity due to excess calories with serious comorbidity and body mass index (BMI) of 45.0 to 49.9 in adult Bipolar affective disorder, remission status unspecified ([facility]) Generalized anxiety disorder ([facility]) Generalized anxiety disorder Vitamin D deficiency Vitamin B12 deficiency Other B-complex deficiencies H/O bariatric surgery Acute non-recurrent pansinusitis Class 2 severe obesity due to excess calories with serious comorbidity and body mass index (BMI) of 38.0 to 38.9 in adult ([facility])- Primary Type 2 diabetes mellitus with other circulatory complications Type 2 diabetes mellitus with stage 3a chronic kidney disease, without long-term current use of insulin ([facility]) ([facility]) Acute foot pain, left- Primary Acute left ankle pain documented in this encounter [facility] HealthcareEvaluation note* Diagnosis Primary hypertension ([facility])- Primary Unspecified essential hypertension Gastroesophageal reflux disease, unspecified whether esophagitis present Microscopic hematuria Lower extremity edema Edema Type 2 diabetes mellitus without complication, without long-term current use of insulin Stage 3 chronic kidney disease due to type 2 diabetes mellitus (HCC) ([facility]) Mixed hyperlipidemia ([facility]) Mixed hyperlipidemia Migraine without aura and without status migrainosus, not intractable [place] Encounter for screening mammogram for malignant neoplasm of breast Colon cancer screening Special screening for malignant neoplasms, colon BMI 50.0-59.9, adult [place] Heel pain, bilateral Type 2 diabetes mellitus without complication, without long-term current use of insulin- Primary History of anuria Stage 3 chronic kidney disease due to type 2 diabetes mellitus (HCC) [place] BMI 50.0-59.9, adult ([facility] URIEL (obstructive sleep apnea) Obstructive sleep apnea (adult) (pediatric) Primary hypertension ([facility]) Unspecified essential hypertension Chronic diastolic heart failure ([facility] Chronic diastolic heart failure Depression, unspecified depression type ([facility] Type 2 diabetes mellitus without complication, without long-term current use of insulin- Primary Stage 3 chronic kidney disease due to type 2 diabetes mellitus (HCC) ([facility] BMI 50.0-59.9, adult ([facility] Lower extremity edema Edema Dental infection- Primary Type 2 diabetes mellitus with stage 3 chronic kidney disease, without long-term current use of insulin, unspecified whether stage 3a or 3b CKD (HCC) ([facility] Primary Bipolar affective disorder, remission status unspecified ([facility] Restless leg syndrome Restless legs syndrome (RLS) URIEL (obstructive sleep apnea) Obstructive sleep apnea (adult) (pediatric) Primary hypertension ([facility]) Unspecified essential hypertension Chronic diastolic heart failure ([facility]) Chronic diastolic heart failure Stage 3 chronic kidney disease due to type 2 diabetes mellitus (HCC) ([facility] Seasonal allergies Allergic rhinitis, cause unspecified BMI 50.0-59.9, adult ([facility] Type 2 diabetes mellitus with stage 4 chronic kidney disease, without long-term current use of insulin ([facility] Primary Type 2 diabetes mellitus without complication, without long-term current use of insulin Left lower quadrant abdominal pain- Primary Morbid (severe) obesity due to excess calories ([facility] Body mass index (BMI) 45.0-49.9, adult ([facility] Restless leg syndrome Restless legs syndrome (RLS) Stage 3b chronic kidney disease (HCC) ([facility] Type 2 diabetes mellitus with other circulatory complications- Primary Type 2 diabetes mellitus with stage 4 chronic kidney disease, without long-term current use of insulin ([facility]) Type 2 diabetes mellitus with stage 3a chronic kidney disease, without long-term current use of insulin (HCC) ([facility]) Class 3 severe obesity due to excess calories with serious comorbidity and body mass index (BMI) of 45.0 to 49.9 in adult Primary hypertension ([facility])- Primary Unspecified essential hypertension Spinal stenosis of lumbar region at multiple levels Restless leg syndrome Restless legs syndrome (RLS) URIEL (obstructive sleep apnea) Obstructive sleep apnea (adult) (pediatric) Coronary arteriosclerosis ([facility]) Coronary atherosclerosis of unspecified type of vessel, [place] or graft Stage 3b chronic kidney disease (HCC) ([facility]) Swelling of both lower extremities Lower extremity edema Edema Type 2 diabetes mellitus with stage 3a chronic kidney disease, without long-term current use of insulin (HCC) ([facility]) Class 3 severe obesity due to excess calories with serious comorbidity and body mass index (BMI) of 45.0 to 49.9 in adult Bipolar affective disorder, remission status unspecified ([facility]) Generalized anxiety disorder ([facility]) Generalized anxiety disorder Vitamin D deficiency Vitamin B12 deficiency Other B-complex deficiencies H/O bariatric surgery Acute non-recurrent pansinusitis Class 2 severe obesity due to excess calories with serious comorbidity and body mass index (BMI) of 38.0 to 38.9 in adult ([facility])- Primary Type 2 diabetes mellitus with other circulatory complications Type 2 diabetes mellitus with stage 3a chronic kidney disease, without long-term current use of insulin (HCC) ([facility]) Restless leg syndrome Restless legs syndrome (RLS) documented in this encounter [facility] HealthcareEvaluation note* Diagnosis Primary hypertension ([facility])- Primary Unspecified essential hypertension Gastroesophageal reflux disease, unspecified whether esophagitis present Microscopic hematuria Lower extremity edema Edema Type 2 diabetes mellitus without complication, without long-term current use of insulin Stage 3 chronic kidney disease due to type 2 diabetes mellitus (HCC) ([facility]) Mixed hyperlipidemia ([facility]) Mixed hyperlipidemia Migraine without aura and without status migrainosus, not intractable ([facility] [facility]) Encounter for screening mammogram for malignant neoplasm of breast Colon cancer screening Special screening for malignant neoplasms, colon BMI 50.0-59.9, adult [place] Heel pain, bilateral Type 2 diabetes mellitus without complication, without long-term current use of insulin- Primary History of anuria Stage 3 chronic kidney disease due to type 2 diabetes mellitus (HCC) ([facility]) BMI 50.0-59.9, adult ([facility]) URIEL (obstructive sleep apnea) Obstructive sleep apnea (adult) (pediatric) Primary hypertension ([facility]) Unspecified essential hypertension Chronic diastolic heart failure ([facility]) Chronic diastolic heart failure Depression, unspecified depression type [place] Type 2 diabetes mellitus without complication, without long-term current use of insulin- Primary Stage 3 chronic kidney disease due to type 2 diabetes mellitus (HCC) ([facility]) BMI 50.0-59.9, adult ([facility]) Lower extremity edema Edema Dental infection- Primary Type 2 diabetes mellitus with stage 3 chronic kidney disease, without long-term current use of insulin, unspecified whether stage 3a or 3b CKD ([facility]) ([facility] Primary Bipolar affective disorder, remission status unspecified [place] Restless leg syndrome Restless legs syndrome (RLS) URIEL (obstructive sleep apnea) Obstructive sleep apnea (adult) (pediatric) Primary hypertension ([facility]) Unspecified essential hypertension Chronic diastolic heart failure ([facility]) Chronic diastolic heart failure Stage 3 chronic kidney disease due to type 2 diabetes mellitus ([facility]) [facility] Seasonal allergies Allergic rhinitis, cause unspecified BMI 50.0-59.9, adult ([facility]) Type 2 diabetes mellitus with stage 4 chronic kidney disease, without long-term current use of insulin ([facility] Primary Type 2 diabetes mellitus without complication, without long-term current use of insulin Left lower quadrant abdominal pain- Primary Morbid (severe) obesity due to excess calories ([facility]) Body mass index (BMI) 45.0-49.9, adult [place] Restless leg syndrome Restless legs syndrome (RLS) Stage 3b chronic kidney disease (HCC) ([facility] Type 2 diabetes mellitus with other circulatory complications- Primary Type 2 diabetes mellitus with stage 4 chronic kidney disease, without long-term current use of insulin ([facility] Type 2 diabetes mellitus with stage 3a chronic kidney disease, without long-term current use of insulin ([facility]) [place] Class 3 severe obesity due to excess calories with serious comorbidity and body mass index (BMI) of 45.0 to 49.9 in adult Primary hypertension ([facility]/HCC)- Primary Unspecified essential hypertension Spinal stenosis of lumbar region at multiple levels Restless leg syndrome Restless legs syndrome (RLS) URIEL (obstructive sleep apnea) Obstructive sleep apnea (adult) (pediatric) Coronary arteriosclerosis ([facility]) Coronary atherosclerosis of unspecified type of vessel, [place] or graft Stage 3b chronic kidney disease (HCC) ([facility]/HCC) Swelling of both lower extremities Lower extremity edema Edema Type 2 diabetes mellitus with stage 3a chronic kidney disease, without long-term current use of insulin (HCC) ([facility]) Class 3 severe obesity due to excess calories with serious comorbidity and body mass index (BMI) of 45.0 to 49.9 in adult Bipolar affective disorder, remission status unspecified ([facility]) Generalized anxiety disorder ([facility]) Generalized anxiety disorder Vitamin D deficiency Vitamin B12 deficiency Other B-complex deficiencies H/O bariatric surgery Acute non-recurrent pansinusitis Class 2 severe obesity due to excess calories with serious comorbidity and body mass index (BMI) of 38.0 to 38.9 in adult ([facility])- Primary Type 2 diabetes mellitus with other circulatory complications Type 2 diabetes mellitus with stage 3a chronic kidney disease, without long-term current use of insulin (HCC) ([facility]) Primary hypertension ([facility]) Unspecified essential hypertension documented in this encounter [facility] HealthcareEvaluation note* Diagnosis Primary hypertension ([facility])- Primary Unspecified essential hypertension Gastroesophageal reflux disease, unspecified whether esophagitis present Microscopic hematuria Lower extremity edema Edema Type 2 diabetes mellitus without complication, without long-term current use of insulin Stage 3 chronic kidney disease due to type 2 diabetes mellitus (HCC) ([facility]) Mixed hyperlipidemia ([facility]) Mixed hyperlipidemia Migraine without aura and without status migrainosus, not intractable ([facility]) Encounter for screening mammogram for malignant neoplasm of breast Colon cancer screening Special screening for malignant neoplasms, colon BMI 50.0-59.9, adult ([facility]) Heel pain, bilateral Type 2 diabetes mellitus without complication, without long-term current use of insulin- Primary History of anuria Stage 3 chronic kidney disease due to type 2 diabetes mellitus (HCC) ([facility]) BMI 50.0-59.9, adult ([facility]/HCC) URIEL (obstructive sleep apnea) Obstructive sleep apnea (adult) (pediatric) Primary hypertension ([facility]) Unspecified essential hypertension Chronic diastolic heart failure ([facility]) Chronic diastolic heart failure Depression, unspecified depression type ([facility]) Type 2 diabetes mellitus without complication, without long-term current use of insulin- Primary Stage 3 chronic kidney disease due to type 2 diabetes mellitus (HCC) ([facility]) BMI 50.0-59.9, adult [place] Lower extremity edema Edema Dental infection- Primary Type 2 diabetes mellitus with stage 3 chronic kidney disease, without long-term current use of insulin, unspecified whether stage 3a or 3b CKD ([facility]) ([facility] Primary Bipolar affective disorder, remission status unspecified ([facility] Restless leg syndrome Restless legs syndrome (RLS) URIEL (obstructive sleep apnea) Obstructive sleep apnea (adult) (pediatric) Primary hypertension ([facility] Unspecified essential hypertension Chronic diastolic heart failure ([facility] Chronic diastolic heart failure Stage 3 chronic kidney disease due to type 2 diabetes mellitus ([facility]) ([facility] Seasonal allergies Allergic rhinitis, cause unspecified BMI 50.0-59.9, adult ([facility] Type 2 diabetes mellitus with stage 4 chronic kidney disease, without long-term current use of insulin ([facility] Primary Type 2 diabetes mellitus without complication, without long-term current use of insulin Left lower quadrant abdominal pain- Primary Morbid (severe) obesity due to excess calories ([facility] Body mass index (BMI) 45.0-49.9, adult ([facility] Restless leg syndrome Restless legs syndrome (RLS) Stage 3b chronic kidney disease (HCC) ([facility] Type 2 diabetes mellitus with other circulatory complications- Primary Type 2 diabetes mellitus with stage 4 chronic kidney disease, without long-term current use of insulin ([facility] Type 2 diabetes mellitus with stage 3a chronic kidney disease, without long-term current use of insulin ([facility]) ([facility] Class 3 severe obesity due to excess calories with serious comorbidity and body mass index (BMI) of 45.0 to 49.9 in adult Primary hypertension ([facility])- Primary Unspecified essential hypertension Spinal stenosis of lumbar region at multiple levels Restless leg syndrome Restless legs syndrome (RLS) URIEL (obstructive sleep apnea) Obstructive sleep apnea (adult) (pediatric) Coronary arteriosclerosis ([facility]) Coronary atherosclerosis of unspecified type of vessel, [place] or graft Stage 3b chronic kidney disease (HCC) ([facility] Swelling of both lower extremities Lower extremity edema Edema Type 2 diabetes mellitus with stage 3a chronic kidney disease, without long-term current use of insulin (HCC) ([facility]) Class 3 severe obesity due to excess calories with serious comorbidity and body mass index (BMI) of 45.0 to 49.9 in adult Bipolar affective disorder, remission status unspecified ([facility]) Generalized anxiety disorder ([facility]) Generalized anxiety disorder Vitamin D deficiency Vitamin B12 deficiency Other B-complex deficiencies H/O bariatric surgery Acute non-recurrent pansinusitis Class 2 severe obesity due to excess calories with serious comorbidity and body mass index (BMI) of 38.0 to 38.9 in adult ([facility])- Primary Type 2 diabetes mellitus with other circulatory complications Type 2 diabetes mellitus with stage 3a chronic kidney disease, without long-term current use of insulin ([facility]) ([facility]) Muscle spasm Spasm of muscle documented in this encounter [facility] HealthcareEvaluation note* Diagnosis Primary hypertension ([facility])- Primary Unspecified essential hypertension Gastroesophageal reflux disease, unspecified whether esophagitis present Microscopic hematuria Lower extremity edema Edema Type 2 diabetes mellitus without complication, without long-term current use of insulin Stage 3 chronic kidney disease due to type 2 diabetes mellitus (HCC) ([facility]) Mixed hyperlipidemia ([facility]) Mixed hyperlipidemia Migraine without aura and without status migrainosus, not intractable ([facility]) Encounter for screening mammogram for malignant neoplasm of breast Colon cancer screening Special screening for malignant neoplasms, colon BMI 50.0-59.9, adult ([facility]) Heel pain, bilateral Type 2 diabetes mellitus without complication, without long-term current use of insulin- Primary History of anuria Stage 3 chronic kidney disease due to type 2 diabetes mellitus (HCC) ([facility]) BMI 50.0-59.9, adult ([facility]) URIEL (obstructive sleep apnea) Obstructive sleep apnea (adult) (pediatric) Primary hypertension ([facility]) Unspecified essential hypertension Chronic diastolic heart failure ([facility]) Chronic diastolic heart failure Depression, unspecified depression type ([facility]) Type 2 diabetes mellitus without complication, without long-term current use of insulin- Primary Stage 3 chronic kidney disease due to type 2 diabetes mellitus (HCC) ([facility]) BMI 50.0-59.9, adult ([facility]) Lower extremity edema Edema Type 2 diabetes mellitus with stage 3 chronic kidney disease, without long-term current use of insulin, unspecified whether stage 3a or 3b CKD ([facility]) ([facility])- Primary Bipolar affective disorder, remission status unspecified [place] Restless leg syndrome Restless legs syndrome (RLS) URIEL (obstructive sleep apnea) Obstructive sleep apnea (adult) (pediatric) Primary hypertension ([facility]) Unspecified essential hypertension Chronic diastolic heart failure ([facility]) Chronic diastolic heart failure Stage 3 chronic kidney disease due to type 2 diabetes mellitus ([facility]) [facility] Seasonal allergies Allergic rhinitis, cause unspecified BMI 50.0-59.9, adult ([facility] Type 2 diabetes mellitus with stage 4 chronic kidney disease, without long-term current use of insulin ([facility] Primary Type 2 diabetes mellitus without complication, without long-term current use of insulin Left lower quadrant abdominal pain- Primary Morbid (severe) obesity due to excess calories ([facility]) Body mass index (BMI) 45.0-49.9, adult [place] Restless leg syndrome Restless legs syndrome (RLS) Stage 3b chronic kidney disease (HCC) ([facility] Type 2 diabetes mellitus with other circulatory complications- Primary Type 2 diabetes mellitus with stage 4 chronic kidney disease, without long-term current use of insulin ([facility] Type 2 diabetes mellitus with stage 3a chronic kidney disease, without long-term current use of insulin ([facility]) [facility] Class 3 severe obesity due to excess calories with serious comorbidity and body mass index (BMI) of 45.0 to 49.9 in adult Primary hypertension ([facility])- Primary Unspecified essential hypertension Spinal stenosis of lumbar region at multiple levels Restless leg syndrome Restless legs syndrome (RLS) URIEL (obstructive sleep apnea) Obstructive sleep apnea (adult) (pediatric) Coronary arteriosclerosis ([facility]) Coronary atherosclerosis of unspecified type of vessel, [place] or graft Stage 3b chronic kidney disease (HCC) ([facility]) Swelling of both lower extremities Lower extremity edema Edema Type 2 diabetes mellitus with stage 3a chronic kidney disease, without long-term current use of insulin ([facility]) ([facility]) Class 3 severe obesity due to excess calories with serious comorbidity and body mass index (BMI) of 45.0 to 49.9 in adult Bipolar affective disorder, remission status unspecified ([facility]) Generalized anxiety disorder ([facility]) Generalized anxiety disorder Vitamin D deficiency Vitamin B12 deficiency Other B-complex deficiencies H/O bariatric surgery Acute non-recurrent pansinusitis Class 2 severe obesity due to excess calories with serious comorbidity and body mass index (BMI) of 38.0 to 38.9 in adult ([facility])- Primary Type 2 diabetes mellitus with other circulatory complications Type 2 diabetes mellitus with stage 3a chronic kidney disease, without long-term current use of insulin (HCC) ([facility]) Encounter for wellness examination in adult- Primary Encounter for screening mammogram for malignant neoplasm of breast Primary hypertension ([facility] Unspecified essential hypertension Chronic diastolic heart failure ([facility] Chronic diastolic heart failure Stage 3b chronic kidney disease (HCC) ([facility]) Class 2 severe obesity due to excess calories with serious comorbidity and body mass index (BMI) of 38.0 to 38.9 in adult ([facility]) Type 2 diabetes mellitus with stage 3a chronic kidney disease, without long-term current use of insulin (HCC) ([facility]) Mixed hyperlipidemia ([facility] Mixed hyperlipidemia documented in this encounter [facility] HealthcareEvaluation note* Diagnosis Primary hypertension ([facility])- Primary Unspecified essential hypertension Gastroesophageal reflux disease, unspecified whether esophagitis present Microscopic hematuria Lower extremity edema Edema Type 2 diabetes mellitus without complication, without long-term current use of insulin Stage 3 chronic kidney disease due to type 2 diabetes mellitus (HCC) ([facility]) Mixed hyperlipidemia ([facility]) Mixed hyperlipidemia Migraine without aura and without status migrainosus, not intractable ([facility]) Encounter for screening mammogram for malignant neoplasm of breast Colon cancer screening Special screening for malignant neoplasms, colon BMI 50.0-59.9, adult ([facility]) Heel pain, bilateral Type 2 diabetes mellitus without complication, without long-term current use of insulin- Primary History of anuria Stage 3 chronic kidney disease due to type 2 diabetes mellitus (HCC) ([facility]) BMI 50.0-59.9, adult ([facility]) URIEL (obstructive sleep apnea) Obstructive sleep apnea (adult) (pediatric) Primary hypertension ([facility]) Unspecified essential hypertension Chronic diastolic heart failure ([facility]) Chronic diastolic heart failure Depression, unspecified depression type ([facility]) Type 2 diabetes mellitus without complication, without long-term current use of insulin- Primary Stage 3 chronic kidney disease due to type 2 diabetes mellitus (HCC) ([facility]) BMI 50.0-59.9, adult ([facility]) Lower extremity edema Edema Type 2 diabetes mellitus with stage 3 chronic kidney disease, without long-term current use of insulin, unspecified whether stage 3a or 3b CKD (HCC) ([facility])- Primary Bipolar affective disorder, remission status unspecified ([facility]) Restless leg syndrome Restless legs syndrome (RLS) URIEL (obstructive sleep apnea) Obstructive sleep apnea (adult) (pediatric) Primary hypertension ([facility]) Unspecified essential hypertension Chronic diastolic heart failure ([facility]) Chronic diastolic heart failure Stage 3 chronic kidney disease due to type 2 diabetes mellitus ([facility]) ([facility]) Seasonal allergies Allergic rhinitis, cause unspecified BMI 50.0-59.9, adult ([facility]) Type 2 diabetes mellitus with stage 4 chronic kidney disease, without long-term current use of insulin ([facility])- Primary Type 2 diabetes mellitus without complication, without long-term current use of insulin Left lower quadrant abdominal pain- Primary Morbid (severe) obesity due to excess calories ([facility]) Body mass index (BMI) 45.0-49.9, adult ([facility]) Restless leg syndrome Restless legs syndrome (RLS) Stage 3b chronic kidney disease (HCC) ([facility]) Type 2 diabetes mellitus with other circulatory complications- Primary Type 2 diabetes mellitus with stage 4 chronic kidney disease, without long-term current use of insulin ([facility]) Type 2 diabetes mellitus with stage 3a chronic kidney disease, without long-term current use of insulin ([facility]) ([facility]) Class 3 severe obesity due to excess calories with serious comorbidity and body mass index (BMI) of 45.0 to 49.9 in adult Primary hypertension ([facility])- Primary Unspecified essential hypertension Spinal stenosis of lumbar region at multiple levels Restless leg syndrome Restless legs syndrome (RLS) URIEL (obstructive sleep apnea) Obstructive sleep apnea (adult) (pediatric) Coronary arteriosclerosis ([facility]) Coronary atherosclerosis of unspecified type of vessel, [place] or graft Stage 3b chronic kidney disease (HCC) ([facility]) Swelling of both lower extremities Lower extremity edema Edema Type 2 diabetes mellitus with stage 3a chronic kidney disease, without long-term current use of insulin (HCC) ([facility]) Class 3 severe obesity due to excess calories with serious comorbidity and body mass index (BMI) of 45.0 to 49.9 in adult Bipolar affective disorder, remission status unspecified [place] Generalized anxiety disorder ([facility]) Generalized anxiety disorder Vitamin D deficiency Vitamin B12 deficiency Other B-complex deficiencies H/O bariatric surgery Acute non-recurrent pansinusitis Class 2 severe obesity due to excess calories with serious comorbidity and body mass index (BMI) of 38.0 to 38.9 in adult ([facility])- Primary Type 2 diabetes mellitus with other circulatory complications Type 2 diabetes mellitus with stage 3a chronic kidney disease, without long-term current use of insulin ([facility]) [place] Encounter for wellness examination in adult- Primary Encounter for screening mammogram for malignant neoplasm of breast Primary hypertension ([facility]) Unspecified essential hypertension Chronic diastolic heart failure ([facility]) Chronic diastolic heart failure Stage 3b chronic kidney disease ([facility]) [place] Class 2 severe obesity due to excess calories with serious comorbidity and body mass index (BMI) of 38.0 to 38.9 in adult ([facility] Type 2 diabetes mellitus with stage 3a chronic kidney disease, without long-term current use of insulin ([facility]) ([facility] Mixed hyperlipidemia [place] Mixed hyperlipidemia Restless leg syndrome Restless legs syndrome (RLS) documented in this encounter [facility] HealthcareEvaluation note* Diagnosis Primary hypertension- Primary Unspecified essential hypertension Gastroesophageal reflux disease, unspecified whether esophagitis present Microscopic hematuria Lower extremity edema Edema Type 2 diabetes mellitus without complication, without long-term current use of insulin ([facility]) Stage 3 chronic kidney disease due to type 2 diabetes mellitus ([facility]) Mixed hyperlipidemia Mixed hyperlipidemia Migraine without aura and without status migrainosus, not intractable Encounter for screening mammogram for malignant neoplasm of breast Colon cancer screening Special screening for malignant neoplasms, colon BMI 50.0-59.9, adult [place] [place] Heel pain, bilateral Type 2 diabetes mellitus without complication, without long-term current use of insulin ([facility])- Primary History of anuria Stage 3 chronic kidney disease due to type 2 diabetes mellitus ([facility]) BMI 50.0-59.9, adult ([facility] [place] URIEL (obstructive sleep apnea) Obstructive sleep apnea (adult) (pediatric) Primary hypertension Unspecified essential hypertension Chronic diastolic heart failure (HCC) Chronic diastolic heart failure Depression, unspecified depression type Type 2 diabetes mellitus without complication, without long-term current use of insulin ([facility])- Primary Stage 3 chronic kidney disease due to type 2 diabetes mellitus ([facility]) BMI 50.0-59.9, adult ([facility] [place] Lower extremity edema Edema Type 2 diabetes mellitus with stage 3 chronic kidney disease, without long-term current use of insulin, unspecified whether stage 3a or 3b CKD ([facility])- Primary Bipolar affective disorder, remission status unspecified ([facility]) Restless leg syndrome Restless legs syndrome (RLS) URIEL (obstructive sleep apnea) Obstructive sleep apnea (adult) (pediatric) Primary hypertension Unspecified essential hypertension Chronic diastolic heart failure ([facility]) Chronic diastolic heart failure Stage 3 chronic kidney disease due to type 2 diabetes mellitus ([facility]) Seasonal allergies Allergic rhinitis, cause unspecified BMI 50.0-59.9, adult ([facility] [place] Type 2 diabetes mellitus with stage 4 chronic kidney disease, without long-term current use of insulin ([facility])- Primary Type 2 diabetes mellitus without complication, without long-term current use of insulin ([facility]) Left lower quadrant abdominal pain- Primary Morbid (severe) obesity due to excess calories ([facility] [place]) Body mass index (BMI) 45.0-49.9, adult ([facility] [place] Restless leg syndrome Restless legs syndrome (RLS) Stage 3b chronic kidney disease ([facility] [place] Type 2 diabetes mellitus with other circulatory complications ([facility])- Primary Type 2 diabetes mellitus with stage 4 chronic kidney disease, without long-term current use of insulin ([facility]) Type 2 diabetes mellitus with stage 3a chronic kidney disease, without long-term current use of insulin ([facility]) Class 3 severe obesity due to excess calories with serious comorbidity and body mass index (BMI) of 45.0 to 49.9 in adult ([facility] [place] Primary hypertension- Primary Unspecified essential hypertension Spinal stenosis of lumbar region at multiple levels Restless leg syndrome Restless legs syndrome (RLS) URIEL (obstructive sleep apnea) Obstructive sleep apnea (adult) (pediatric) Coronary arteriosclerosis Coronary atherosclerosis of unspecified type of vessel, [place] or graft Stage 3b chronic kidney disease ([facility] [place] Swelling of both lower extremities Lower extremity edema Edema Type 2 diabetes mellitus with stage 3a chronic kidney disease, without long-term current use of insulin ([facility]) Class 3 severe obesity due to excess calories with serious comorbidity and body mass index (BMI) of 45.0 to 49.9 in adult ([facility] [place] Bipolar affective disorder, remission status unspecified ([facility]) Generalized anxiety disorder Generalized anxiety disorder Vitamin D deficiency Vitamin B12 deficiency Other B-complex deficiencies H/O bariatric surgery Acute non-recurrent pansinusitis Class 2 severe obesity due to excess calories with serious comorbidity and body mass index (BMI) of 38.0 to 38.9 in adult ([facility] [place] Primary Type 2 diabetes mellitus with other circulatory complications (HCC) Type 2 diabetes mellitus with stage 3a chronic kidney disease, without long-term current use of insulin ([facility]) Encounter for wellness examination in adult- Primary Encounter for screening mammogram for malignant neoplasm of breast Primary hypertension Unspecified essential hypertension Chronic diastolic heart failure (HCC) Chronic diastolic heart failure Stage 3b chronic kidney disease ([facility] [place] Class 2 severe obesity due to excess calories with serious comorbidity and body mass index (BMI) of 38.0 to 38.9 in adult ([facility] [place] Type 2 diabetes mellitus with stage 3a chronic kidney disease, without long-term current use of insulin ([facility]) Mixed hyperlipidemia Mixed hyperlipidemia Type 2 diabetes mellitus with other circulatory complications (HCC)- Primary Type 2 diabetes mellitus with stage 3a chronic kidney disease, without long-term current use of insulin ([facility]) Type 2 diabetes mellitus with stage 4 chronic kidney disease, without long-term current use of insulin ([facility]) Type 2 diabetes mellitus without complication, without long-term current use of insulin ([facility]) Class 2 severe obesity due to excess calories with serious comorbidity and body mass index (BMI) of 36.0 to 36.9 in adult ([facility] [place] documented in this encounter [facility] HealthcareEvaluation note* Diagnosis Primary hypertension- Primary Unspecified essential hypertension Gastroesophageal reflux disease, unspecified whether esophagitis present Microscopic hematuria Lower extremity edema Edema Type 2 diabetes mellitus without complication, without long-term current use of insulin ([facility]) Stage 3 chronic kidney disease due to type 2 diabetes mellitus ([facility]) Mixed hyperlipidemia Mixed hyperlipidemia Migraine without aura and without status migrainosus, not intractable Encounter for screening mammogram for malignant neoplasm of breast Colon cancer screening Special screening for malignant neoplasms, colon BMI 50.0-59.9, adult ([facility] [place] Heel pain, bilateral Type 2 diabetes mellitus without complication, without long-term current use of insulin ([facility])- Primary History of anuria Stage 3 chronic kidney disease due to type 2 diabetes mellitus ([facility]) BMI 50.0-59.9, adult ([facility] [place] URIEL (obstructive sleep apnea) Obstructive sleep apnea (adult) (pediatric) Primary hypertension Unspecified essential hypertension Chronic diastolic heart failure (HCC) Chronic diastolic heart failure Depression, unspecified depression type Type 2 diabetes mellitus without complication, without long-term current use of insulin ([facility])- Primary Stage 3 chronic kidney disease due to type 2 diabetes mellitus ([facility]) BMI 50.0-59.9, adult ([facility] [place] Lower extremity edema Edema Type 2 diabetes mellitus with stage 3 chronic kidney disease, without long-term current use of insulin, unspecified whether stage 3a or 3b CKD ([facility])- Primary Bipolar affective disorder, remission status unspecified ([facility]) Restless leg syndrome Restless legs syndrome (RLS) URIEL (obstructive sleep apnea) Obstructive sleep apnea (adult) (pediatric) Primary hypertension Unspecified essential hypertension Chronic diastolic heart failure ([facility]) Chronic diastolic heart failure Stage 3 chronic kidney disease due to type 2 diabetes mellitus ([facility]) Seasonal allergies Allergic rhinitis, cause unspecified BMI 50.0-59.9, adult ([facility] [place] Type 2 diabetes mellitus with stage 4 chronic kidney disease, without long-term current use of insulin ([facility])- Primary Type 2 diabetes mellitus without complication, without long-term current use of insulin ([facility]) Left lower quadrant abdominal pain- Primary Morbid (severe) obesity due to excess calories ([facility] [place] Body mass index (BMI) 45.0-49.9, adult ([facility] [place] Restless leg syndrome Restless legs syndrome (RLS) Stage 3b chronic kidney disease ([facility] [place] Type 2 diabetes mellitus with other circulatory complications ([facility])- Primary Type 2 diabetes mellitus with stage 4 chronic kidney disease, without long-term current use of insulin ([facility]) Type 2 diabetes mellitus with stage 3a chronic kidney disease, without long-term current use of insulin ([facility]) Class 3 severe obesity due to excess calories with serious comorbidity and body mass index (BMI) of 45.0 to 49.9 in adult ([facility] [place] Primary hypertension- Primary Unspecified essential hypertension Spinal stenosis of lumbar region at multiple levels Restless leg syndrome Restless legs syndrome (RLS) URIEL (obstructive sleep apnea) Obstructive sleep apnea (adult) (pediatric) Coronary arteriosclerosis Coronary atherosclerosis of unspecified type of vessel, [place] or graft Stage 3b chronic kidney disease ([facility] [place] Swelling of both lower extremities Lower extremity edema Edema Type 2 diabetes mellitus with stage 3a chronic kidney disease, without long-term current use of insulin ([facility]) Class 3 severe obesity due to excess calories with serious comorbidity and body mass index (BMI) of 45.0 to 49.9 in adult ([facility] [place] Bipolar affective disorder, remission status unspecified ([facility]) Generalized anxiety disorder Generalized anxiety disorder Vitamin D deficiency Vitamin B12 deficiency Other B-complex deficiencies H/O bariatric surgery Acute non-recurrent pansinusitis Class 2 severe obesity due to excess calories with serious comorbidity and body mass index (BMI) of 38.0 to 38.9 in adult ([facility] [place] Primary Type 2 diabetes mellitus with other circulatory complications ([facility]) Type 2 diabetes mellitus with stage 3a chronic kidney disease, without long-term current use of insulin ([facility]) Encounter for wellness examination in adult- Primary Encounter for screening mammogram for malignant neoplasm of breast Primary hypertension Unspecified essential hypertension Chronic diastolic heart failure ([facility]) Chronic diastolic heart failure Stage 3b chronic kidney disease ([facility] [place] Class 2 severe obesity due to excess calories with serious comorbidity and body mass index (BMI) of 38.0 to 38.9 in adult ([facility] [place] Type 2 diabetes mellitus with stage 3a chronic kidney disease, without long-term current use of insulin ([facility]) Mixed hyperlipidemia Mixed hyperlipidemia Type 2 diabetes mellitus with other circulatory complications ([facility])- Primary Type 2 diabetes mellitus with stage 3a chronic kidney disease, without long-term current use of insulin ([facility]) Type 2 diabetes mellitus with stage 4 chronic kidney disease, without long-term current use of insulin ([facility]) Type 2 diabetes mellitus without complication, without long-term current use of insulin ([facility]) Class 2 severe obesity due to excess calories with serious comorbidity and body mass index (BMI) of 36.0 to 36.9 in adult ([facility] [place] Muscle spasm Spasm of muscle documented in this encounter [facility] HealthcareEvaluation note* Diagnosis Primary hypertension- Primary Unspecified essential hypertension Gastroesophageal reflux disease, unspecified whether esophagitis present Microscopic hematuria Lower extremity edema Edema Type 2 diabetes mellitus without complication, without long-term current use of insulin ([facility]) Stage 3 chronic kidney disease due to type 2 diabetes mellitus ([facility]) Mixed hyperlipidemia Mixed hyperlipidemia Migraine without aura and without status migrainosus, not intractable Encounter for screening mammogram for malignant neoplasm of breast Colon cancer screening Special screening for malignant neoplasms, colon BMI 50.0-59.9, adult ([facility] [place] Heel pain, bilateral Type 2 diabetes mellitus without complication, without long-term current use of insulin ([facility])- Primary History of anuria Stage 3 chronic kidney disease due to type 2 diabetes mellitus ([facility]) BMI 50.0-59.9, adult ([facility] [place] URIEL (obstructive sleep apnea) Obstructive sleep apnea (adult) (pediatric) Primary hypertension Unspecified essential hypertension Chronic diastolic heart failure ([facility]) Chronic diastolic heart failure Depression, unspecified depression type Type 2 diabetes mellitus without complication, without long-term current use of insulin ([facility])- Primary Stage 3 chronic kidney disease due to type 2 diabetes mellitus ([facility]) BMI 50.0-59.9, adult ([facility] [place] Lower extremity edema Edema Type 2 diabetes mellitus with stage 3 chronic kidney disease, without long-term current use of insulin, unspecified whether stage 3a or 3b CKD ([facility])- Primary Bipolar affective disorder, remission status unspecified ([facility]) Restless leg syndrome Restless legs syndrome (RLS) URIEL (obstructive sleep apnea) Obstructive sleep apnea (adult) (pediatric) Primary hypertension Unspecified essential hypertension Chronic diastolic heart failure ([facility]) Chronic diastolic heart failure Stage 3 chronic kidney disease due to type 2 diabetes mellitus ([facility]) Seasonal allergies Allergic rhinitis, cause unspecified BMI 50.0-59.9, adult ([facility] [place] Type 2 diabetes mellitus with stage 4 chronic kidney disease, without long-term current use of insulin ([facility])- Primary Type 2 diabetes mellitus without complication, without long-term current use of insulin ([facility]) Left lower quadrant abdominal pain- Primary Morbid (severe) obesity due to excess calories ([facility] [place]) Body mass index (BMI) 45.0-49.9, adult ([facility] [place] Restless leg syndrome Restless legs syndrome (RLS) Stage 3b chronic kidney disease ([facility] [place] Type 2 diabetes mellitus with other circulatory complications ([facility])- Primary Type 2 diabetes mellitus with stage 4 chronic kidney disease, without long-term current use of insulin ([facility]) Type 2 diabetes mellitus with stage 3a chronic kidney disease, without long-term current use of insulin ([facility]) Class 3 severe obesity due to excess calories with serious comorbidity and body mass index (BMI) of 45.0 to 49.9 in adult ([facility] [place] Primary hypertension- Primary Unspecified essential hypertension Spinal stenosis of lumbar region at multiple levels Restless leg syndrome Restless legs syndrome (RLS) URIEL (obstructive sleep apnea) Obstructive sleep apnea (adult) (pediatric) Coronary arteriosclerosis Coronary atherosclerosis of unspecified type of vessel, [place] or graft Stage 3b chronic kidney disease ([facility] [place] Swelling of both lower extremities Lower extremity edema Edema Type 2 diabetes mellitus with stage 3a chronic kidney disease, without long-term current use of insulin ([facility]) Class 3 severe obesity due to excess calories with serious comorbidity and body mass index (BMI) of 45.0 to 49.9 in adult ([facility] [place] Bipolar affective disorder, remission status unspecified ([facility]) Generalized anxiety disorder Generalized anxiety disorder Vitamin D deficiency Vitamin B12 deficiency Other B-complex deficiencies H/O bariatric surgery Acute non-recurrent pansinusitis Class 2 severe obesity due to excess calories with serious comorbidity and body mass index (BMI) of 38.0 to 38.9 in adult ([facility] [place] Primary Type 2 diabetes mellitus with other circulatory complications ([facility]) Type 2 diabetes mellitus with stage 3a chronic kidney disease, without long-term current use of insulin ([facility]) Encounter for wellness examination in adult- Primary Encounter for screening mammogram for malignant neoplasm of breast Primary hypertension Unspecified essential hypertension Chronic diastolic heart failure ([facility]) Chronic diastolic heart failure Stage 3b chronic kidney disease ([facility] [place] Class 2 severe obesity due to excess calories with serious comorbidity and body mass index (BMI) of 38.0 to 38.9 in adult ([facility] [place]) Type 2 diabetes mellitus with stage 3a chronic kidney disease, without long-term current use of insulin ([facility]) Mixed hyperlipidemia Mixed hyperlipidemia Type 2 diabetes mellitus with other circulatory complications ([facility])- Primary Type 2 diabetes mellitus with stage 3a chronic kidney disease, without long-term current use of insulin ([facility]) Type 2 diabetes mellitus with stage 4 chronic kidney disease, without long-term current use of insulin ([facility]) Type 2 diabetes mellitus without complication, without long-term current use of insulin ([facility]) Class 2 severe obesity due to excess calories with serious comorbidity and body mass index (BMI) of 36.0 to 36.9 in adult ([facility] Restless leg syndrome Restless legs syndrome (RLS) documented in this encounter [facility] HealthcareEvaluation note* Diagnosis Onset Date Resolution Status Admit Date 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 acute Au 2024 9:38am Hyperkalemia acute November 26, 2024 [...] Hypertensive nephropathy resolved November 26, 2024 9:38am [facility] Work Phone: Evaluation note* Diagnosis Primary hypertension- Primary Unspecified essential hypertension Gastroesophageal reflux disease, unspecified whether esophagitis present Microscopic hematuria Lower extremity edema Edema Type 2 diabetes mellitus without complication, without long-term current use of insulin ([facility]) Stage 3 chronic kidney disease due to type 2 diabetes mellitus ([facility]) Mixed hyperlipidemia Mixed hyperlipidemia Migraine without aura and without status migrainosus, not intractable Encounter for screening mammogram for malignant neoplasm of breast Colon cancer screening Special screening for malignant neoplasms, colon BMI 50.0-59.9, adult ([facility]) Heel pain, bilateral Type 2 diabetes mellitus without complication, without long-term current use of insulin ([facility])- Primary History of anuria Stage 3 chronic kidney disease due to type 2 diabetes mellitus ([facility]) BMI 50.0-59.9, adult ([facility] URIEL (obstructive sleep apnea) Obstructive sleep apnea (adult) (pediatric) Primary hypertension Unspecified essential hypertension Chronic diastolic heart failure ([facility]) Chronic diastolic heart failure Depression, unspecified depression type Type 2 diabetes mellitus without complication, without long-term current use of insulin ([facility])- Primary Stage 3 chronic kidney disease due to type 2 diabetes mellitus ([facility]) BMI 50.0-59.9, adult ([facility]) Lower extremity edema Edema Type 2 diabetes mellitus with stage 3 chronic kidney disease, without long-term current use of insulin, unspecified whether stage 3a or 3b CKD ([facility])- Primary Bipolar affective disorder, remission status unspecified ([facility]) Restless leg syndrome Restless legs syndrome (RLS) URIEL (obstructive sleep apnea) Obstructive sleep apnea (adult) (pediatric) Primary hypertension Unspecified essential hypertension Chronic diastolic heart failure (HCC) Chronic diastolic heart failure Stage 3 chronic kidney disease due to type 2 diabetes mellitus ([facility]) Seasonal allergies Allergic rhinitis, cause unspecified BMI 50.0-59.9, adult ([facility]) Type 2 diabetes mellitus with stage 4 chronic kidney disease, without long-term current use of insulin ([facility])- Primary Type 2 diabetes mellitus without complication, without long-term current use of insulin ([facility]) Left lower quadrant abdominal pain- Primary Morbid (severe) obesity due to excess calories ([facility]) Body mass index (BMI) 45.0-49.9, adult ([facility]) Restless leg syndrome Restless legs syndrome (RLS) Stage 3b chronic kidney disease ([facility]) Type 2 diabetes mellitus with other circulatory complications ([facility])- Primary Type 2 diabetes mellitus with stage 4 chronic kidney disease, without long-term current use of insulin ([facility]) Type 2 diabetes mellitus with stage 3a chronic kidney disease, without long-term current use of insulin ([facility]) Class 3 severe obesity due to excess calories with serious comorbidity and body mass index (BMI) of 45.0 to 49.9 in adult ([facility]) Primary hypertension- Primary Unspecified essential hypertension Spinal stenosis of lumbar region at multiple levels Restless leg syndrome Restless legs syndrome (RLS) URIEL (obstructive sleep apnea) Obstructive sleep apnea (adult) (pediatric) Coronary arteriosclerosis Coronary atherosclerosis of unspecified type of vessel, [place] or graft Stage 3b chronic kidney disease ([facility]) Swelling of both lower extremities Lower extremity edema Edema Type 2 diabetes mellitus with stage 3a chronic kidney disease, without long-term current use of insulin ([facility]) Class 3 severe obesity due to excess calories with serious comorbidity and body mass index (BMI) of 45.0 to 49.9 in adult ([facility]) Bipolar affective disorder, remission status unspecified ([facility]) Generalized anxiety disorder Generalized anxiety disorder Vitamin D deficiency Vitamin B12 deficiency Other B-complex deficiencies H/O bariatric surgery Acute non-recurrent pansinusitis Class 2 severe obesity due to excess calories with serious comorbidity and body mass index (BMI) of 38.0 to 38.9 in adult ([facility] Primary Type 2 diabetes mellitus with other circulatory complications ([facility]) Type 2 diabetes mellitus with stage 3a chronic kidney disease, without long-term current use of insulin ([facility]) Encounter for wellness examination in adult- Primary Encounter for screening mammogram for malignant neoplasm of breast Primary hypertension Unspecified essential hypertension Chronic diastolic heart failure (HCC) Chronic diastolic heart failure Stage 3b chronic kidney disease ([facility]) Class 2 severe obesity due to excess calories with serious comorbidity and body mass index (BMI) of 38.0 to 38.9 in adult ([facility]) Type 2 diabetes mellitus with stage 3a [...] (BMI) of 36.0 to 36.9 in adult ([facility]) Restless leg syndrome Restless legs syndrome (RLS) documented in this encounter [facility]* Type Assessment Date No Information [facility] Work Phone: History and physical note* Clinical Note Date No Information [facility] Work Phone: History general Narrative - [...] History Tonsilectomy Teenager Hospitalization History See Above [employer] Other Hisvrri general Narrative - Reported* Type Description Date [...] BACK SURGERY 07/2021 Hospitalization History See Above [employer] Other History of Past illness Narrative* Condition Effective Dates (start - stop) O utcome No Information [facility] Work Phone: Instructions* Date Instruction Additional Infor mation No Information [facility] Work Phone: Progress note* Clinical Note Date No Information [facility] Work Phone: Reason for referral (narrative)[facility] for [facility] Reason for referral (narrative)* Reason For Referral No Information [facility] Work Phone: Review of systems Narrative - Reported* System Pos/Neg Findings No Information [facility] Work Phone: Summary Purpose Family History Relationship Condition Age [...] Problem (finding) Mother Problem (finding) Advance Directives Advance Directive Response Recorded Date/ Time Advance Directives No March 19, 2018 5:43pm Advance Directive Response Recorded Date/ Time Advance Directives No March 19, 2018 4:43pm Directive Yes / No Effective Date File Name No Information Hospital Course Note MR#: [id number] [facility] Pt. Name: Sherly Humphreys Admitted: 08/23/2018 Discharged: [...] Diagnosis 1 Thoracic myelopathy (M47.14) Referral Organization [facility] Referring Provider First Name Christian Referring Provider Last Name Alfonso Referring Provider Specialty Neurologica l Surgery Referred Organization [facility] Pain Managemen t Referred Provider Ivan Sams Referred Address [address] [place] [id number] Referred Provider Specialty Pain Medicin e Referral Priority Routine General Notes Nini Davison 023 12:45:54 PM >Received today and sent P2P Kristal Veloz 05/16/2022 02:01:28 PM >pt has been [facility] 09[facility]01:37 AM >Patient was a no show to her appt Nini Davison 06/13/2022 11:23:40 AM >Telephone encounter was sent Reason Evaluate and Treat B ilateral Low Back Pain Diagnosis 1 Low back pain (M54.5 ) Referral Organization [facility] Referring Provider First Name Christian Referring Provider Last Name Alfonso Referring Provider Specialty Neurologica l Surgery Referred Organization Unknown Facility Referred Provider Specialty Physical The rapist Referral Priority Routine Chief Complaint and Reason for Visit From encounter dated '12/30/2024 08:52'. Endo (chief complaint). Description: Endo Chief Complaint low back pain Chief Complaint [...] section and content) DATE CREATED AUTHOR 11/22/2018 [facility] DATE CREATED AUTHOR AUTHOR'S SANCHEZIZ ATION 09/22/2022 [facility] DATE CREATED AUTHOR AUTHOR'S ORGANIZ ATION 05/26/2023 [facility] DATE CREATED AUTHOR AUTHOR'S ORGANIZ ATION 12/14/2023 [facility] DATE CREATED AUTHOR AUTHOR'S ORGANIZ ATION 11/04/2024 [facility] EPIC DATE CREATED AUTHOR AUTHOR'S ORGANIZ ATION 12/02/2024 [facility] DATE CREATED AUTHOR AUTHOR'S ORGANIZ ATION 12/16/2024 [facility] DATE CREATED AUTHOR AUTHOR'S ORGANIZ ATION 12/31/2024 [facility] DEPARTMENT REASON FOR VISIT (unrecogniz ed [...] Janene Lew Primary Care Provider Active Christian Hamilton MD Attending Provider Active Team Status: Inactive Member Role Status Dates Janene Lwe Primary Care Provider Active Emma Bolivar NP Attending Provider Active Team Status: Inactive Member Role Status Dates [facility] Primary Care Provider Active Merissa Hernandez PRICING ANALYST- Emergency Provider Active Team Status: Inactive Member Role Status Dates Janene eLw Primary Care Provider Active Sta rt: August [...] Status: Active Member Role Status Dates Janene Middletonrufus Primary Care Provider Active Sta rt: October 01, 2023 Alma Deng MD Admit Provider Active Start: October 01, 2023 Des Benitez MD Attending Provider, Other Provider Active Start: October 01, 2023 Fernando Rosenberg MD Other Provider Active Start: October 01, 2023 Team Status: Inactive Member Role Status Dates Janene Middletonrufus Primary Care Provider Active Sta rt: October [...] November 01, 2023 End: November 01, 2023 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 Start Date End Date Markel Haq MD [address] [place] [address] PCP - General Family Medicine 05/03/23 Janene Lew NP [address] [place] [address] PCP - [facility] 09/15/23 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 Start Date End Date Markel Haq MD [address] [place] [address] PCP - General Family Medicine 05/03/23 Janene Lew NP [address] [place] [address] PCP - [employer] 09/15/23 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 Start Date End Date Markel Haq MD [address] [place] [address] PCP - General Family Medicine 05/03/23 Janene Lew NP [address] [place] [address] PCP - [employer] 09/15/23 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 Start Date End Date Markel Haq MD [address] [place] [address] PCP - General Family Medicine 05/03/23 Janene Lew NP [address] [place] [address] PCP - [employer] 09/15/23 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 Start Date End Date Markel Haq MD [address] [place] [address] PCP - General Family Medicine 05/03/23 Janene Lew NP [address] [place] [address] PCP - [employer] 09/15/23 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 Start Date End Date Markel Haq MD [address] [place] [address] PCP - General Family Medicine 05/03/23 Janene Lew NP [address] [place] [address] PCP - [employer] 09/15/23 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 Start Date End Date Markel Haq MD [address] [place] [address] PCP - General Family Medicine 05/03/23 Janene Lew NP [address] [place] [address] PCP - [employer] 09/15/23 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 Start Date End Date Markel Haq MD [address] [place] [address] PCP - General Family Medicine 05/03/23 Janene Lew NP [address] [place] [address] PCP - [employer] 09/15/23 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 Start Date End Date Markel Haq MD [address] [place] [address] PCP - General Family Medicine 05/03/23 Janene Lew NP [address] [place] [address] PCP - [employer] 09/15/23 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 Start Date End Date Markel Haq MD [address] [place] [address] PCP - General Family Medicine 05/03/23 Janene Lew NP [address] [place] [address] PCP - [employer] 09/15/23 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 Start Date End Date Markel Haq MD [address] [place] [address] PCP - General Family Medicine 05/03/23 Janene Lew NP [address] [place] [address] PCP - [employer] 09/15/23 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 Start Date End Date Markel Haq MD [address] [place] [address] PCP - General Family Medicine 05/03/23 Janene Lew NP [address] [place] [address] PCP - [employer] 09/15/23 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 Start Date End Date Markel Haq MD [address] [place] [address] PCP - General Family Medicine 05/03/23 Janene Lew NP [address] [place] [address] PCP - [employer] 09/15/23 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 Start Date End Date Markel Haq MD [address] [place] [address] PCP - General Family Medicine 05/03/23 Janene Lew NP [address] [place] [address] PCP - [employer] 09/15/23 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 Start Date End Date Markel Haq MD [address] [place] [address] PCP - General Family Medicine 05/03/23 Janene Lew NP [address] [place] [address] PCP - [employer] 09/15/23 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 Start Date End Date Markel Haq MD [address] [place] [address] PCP - General Family Medicine 05/03/23 Janene Lew NP [address] [place] [address] PCP - [employer] 09/15/23 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 Start Date End Date Markel Haq MD [address] [place] [address] PCP - General Family Medicine 05/03/23 Janene Lew NP [address] [place] [address] PCP - [employer] 09/15/23 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 Start Date End Date Markel Haq MD [address] [place] [address] PCP - General Family Medicine 05/03/23 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 Start Date End Date Markel Haq MD [address] [place] [address] PCP - General Family Medicine 05/03/23 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 Start Date End Date Markel Haq MD [address] [place] [address] PCP - General Family Medicine 05/03/23 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 Start Date End Date Markel Haq MD [address] [place] [address] PCP - General Family Medicine 05/03/23 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 Start Date End Date Markel Haq MD [address] [place] [address] PCP - General Family Medicine 05/03/23 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 Start Date End Date Markel Haq MD [address] [place] [address] PCP - General Family Medicine 05/03/23 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 Start Date End Date Markel Haq MD [address] [place] [address] PCP - General Family Medicine 05/03/23 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 Start Date End Date Markel Haq MD [address] [place] [address] PCP - [facility] 05/03/23 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 Start Date End Date Markel Haq MD [address] [place] [address] PCP - [facility] 05/03/23 Team Status: Inactive Member Role Status Dates Janene Lew Primary Care Provider Active Sta rt: November 26, 2024 End: November 26, 2024 Halle Mac MD Attending Provider Active Star t: November 26, 2024 End: November 26, 2024 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 Start Date End Date Markel Haq MD [address] [place] [address] PCP - [facility] 05/03/23 Name Effective Dates (start - stop) [...] BE BASED ON THE PRIMARY CLINICAL RECORDS. [facility]. provides no warranty or guarantee of the accuracy or completeness of information in this document.
--- OUTSIDE RECORDS SUMMARY | 2025-01-26 06:09 | XMS_ITS | Encounter Summary ---
Author Organization [facility] Address [address] [place] [address] Care Team Providers Care Fitter Type Bar And Segment Name Role Phone Markel Braxton MD Primary Care Provider [phone] Janene Lew NP Unavailable [phone] Encounter Details Date Type Department Care Team (Late st Contact Info) Description 11/01/2023 Orders Only [facility] [address] [address] Jhonathan Clemente MD [address] [facility] [address] [place] [address] Social History Tobacco Use Types [...] week 05/02/2023 How often do you attend uatsdin or jew serv ices? Never 05/02/2023 Do you belong to any clubs o r organizations such as uatsdin groups, unions, fraternal or athletic groups, or [...] Questionnaire-2 Score 0 09/20/2023 [facility] - Occupational Stress Questionnaire Answer Date Recorded [...] 10:15 AM EST Office Visit [facility] [address] [place] [address] Marya Loya, [address] [place] [address] documented as of this encounter Procedures Procedure Name Priority Date/Time Associated Diagnosis Comments COLONOSCOPY Routine 11/01/2023 11:19 AM EDT documented in this encounter Results * Colonoscopy (11/01/2023 11:19 AM EDT) Anatomical Region Laterality Modality Endoscopy us Jhonathan Ashely MD ENDOSCOPY PROCEDURE ORDERABL ES Final Result documented in this encounter Visit Diagnoses Not on filedocumented in this encounter Additional Health Concerns Assessment Noted Time PHQ-9 Depression Total Score: 16 024 1:18 PM EST documented as of this encounter Care Teams Fitter Type Bar And Segment Relationship Specialty Start Date End Date Markel Braxton MD PCP - General Family Medicine 05/03/23 Janene Lew NP [address] [place] [address] PCP - [employer] 09/15/23 documented as of this encounter
[2025-01-26 06:45] VITALS: BP 126/79; PULSE 76; TEMP 36.7; O2SAT 97
[2025-01-26] MEDS: VANCOMYCIN HCL 1,500 MG in 0.9 % SODIUM CHLORIDE 500 ML 250 MG IV (07:08)
[2025-01-26] MEDS: LIDOCAINE HCL 2%-EPINEPHRINE 1:200,000 20 ML MDV 10 ML INJ (07:59)
[2025-01-26 08:05] VITALS: BP 149/74; PULSE 55; TEMP 36.8; O2SAT 98
--- NOTE | 2025-01-26 08:08 | W.PM.PROCNOT ---
Date of procedure: 01/26/25 Pre-op diagnosis: M96.1 Post-op diagnosis: same as pre-op Procedure: Procedure Performed by: Elza Conway M.D. Procedure: Placement of [employer] 16 contact neuroelectrode trial leads (x two) under fluoroscopic guidance *Needle Assistant Boiler Operator at the interspace below T12/L1 *Final Lead Placement Level at the middle of the vertebral body T6 Anesthesia: Monitored Anesthesia Care is medically necessary for the procedure due to the procedure requiring the patient to remain motionless for a prolonged period of time. Procedure: Risks, Benefits, Alternatives were reviewed and informed consent was obtained in the preop holding area. All questions were answered appropriately. The patient was brought to the operating room and placed in the prone position with padding under all bony prominences. A pre-procedure time out was performed specifying pt. name, nature site and side of surgery, and allergies. Anesthesia provided appropriate sedation as the skin over the thoracic and lumbar spine were prepped with duraprep and draped in the usual sterile fashion. Under fluoroscopic guidance, the above noted interspace was identified as the site for epidural needle entry. The skin and subcutaneous tissues were anesthetized approximately 1 level inferior to this point with a mixture of 1% lidocaine and 0.25% bupivacaine. Two 14 gauge tuouy needles were inserted to the superior aspect of the lamina just inferior to the target interspace. Then, using loss of resistance technique as well as fluoroscopic guidance, the epidural space was entered. Two [employer] Trial Stimulator Leads were then advanced under intermittent fluoroscopic guidance until the distal tip of the electrode was observed to be in position at the final position noted above. After appropriate electrode placement was achieved, stimulation was tested intraoperatively with multiple lead configurations until concordant paresthesias were obtained covering the areas of the patient's pain. At this point, the needles and stylets were removed carefully and the leads were secured to the skin using steri-strips. The region was covered using a sterile tegaderm bandage. The patient was escorted to the recovery area in stable condition having tolerated the procedure well. Anesthesia: MAC Surgeon: Elza Conway Pathology: none sent Condition: stable Disposition: no change
[2025-01-26 08:10] VITALS: BP 160/80; PULSE 57; TEMP 36.8; O2SAT 96
--- NOTE | 2025-01-26 08:15 | PC.NURSE ---
[place] [employer] at bedside to adjust stimulator settings.
--- NOTE | 2025-01-26 09:14 | PC.NURSE ---
Pt having pain and upon standing, weakness to left leg. Dr Conway updated. Pt informed that she is experiencing a neuritis post operatively and advised to take ibuprofen to help with pain per Dr Conway. Pt verbalized understanding.
== END 2025-01-26 08:53 | disposition home or self-care (01) ==
LOC: SURGOUT 06:05
PROVIDERS: PCP Nurse Practitioner; Visit Provider Anesthesiology
DX: Z01.812 Encounter for preprocedural laboratory examination (principal); M96.1 Postlaminectomy syndrome, not elsewhere classified; E11.8 Type 2 diabetes mellitus with unspecified complications; Z79.85 Long-term (current) use of injectable non-insulin antidiabetic drugs
CPT/HCPCS: 36415; 63650; 82948; C1778; J2250; J2704; J3010; J3373

== ENCOUNTER 2025-02-02 08:00 | Outpatient (OUT) | payer BC, SELFPAY ==
--- NOTE | 2025-02-02 08:27 | PM.CN ---
Consult Note: HPI Data of Consult Patient: known to practice within the last 3 years Consult date: 02/02/25 Requesting Physician: Elza Conway MD Primary Care Provider: Janene Lew NP Consult Narrative Reason for consult: low back pain Narrative: 54yof who presents for spinal cord stim lead pull. endorses significant benefit of >50% with trial, would like to move forward with permanent scs implant. cc:: CC: Elza Conway MD Review of Systems ROS Status of ROS 10 or more systems reviewed and unremarkable except as noted in history and below [facility] Medical History Back pain ?M54.9 - Dorsalgia, unspecified (ICD-10) Arthritis ?M19.90 - Unspecified osteoarthritis, unspecified site (ICD-10) Diverticulosis ?K57.90 - Diverticulosis of intestine, part unspecified, without perforation or abscess without bleeding (ICD-10) Extremity edema ?R60.0 - Localized edema (ICD-10) Delayed recovery from anesthesia MRSA infection ?A49.02 - Methicillin resistant Staphylococcus aureus infection, unspecified site (ICD-10) Stage III chronic kidney disease ?N18.30 - Chronic kidney disease, stage 3 unspecified (ICD-10) Spinal stenosis of thoracolumbar region ?M48.05 - Spinal stenosis, thoracolumbar region (ICD-10) Spinal stenosis of lumbar region at multiple levels ?M48.061 - Spinal stenosis, lumbar region without neurogenic claudication (ICD-10) Seasonal allergies ?J30.2 - Other seasonal allergic rhinitis (ICD-10) RLS (restless legs syndrome) ?G25.81 - Restless legs syndrome (ICD-10) Kidney stones ?N20.0 - Calculus of kidney (ICD-10) Myalgia ?M79.10 - Myalgia, unspecified site (ICD-10) Migraine ?G43.909 - Migraine, unspecified, not intractable, without status migrainosus (ICD-10) Microscopic hematuria ?R31.29 - Other microscopic hematuria (ICD-10) Lumbar disc herniation ?M51.26 - Other intervertebral disc displacement, lumbar region (ICD-10) Lower extremity edema ?R60.0 - Localized edema (ICD-10) Irritable bowel syndrome with diarrhea ?K58.0 - Irritable bowel syndrome with diarrhea (ICD-10) Insomnia ?G47.00 - Insomnia, unspecified (ICD-10) Hypomagnesemia ?E83.42 - Hypomagnesemia (ICD-10) Hyperlipidemia ?E78.5 - Hyperlipidemia, unspecified (ICD-10) Hyperkalemia ?E87.5 - Hyperkalemia (ICD-10) GERD (gastroesophageal reflux disease) ?K21.9 - Gastro-esophageal reflux disease without esophagitis (ICD-10) Fatigue ?R53.83 - Other fatigue (ICD-10) Dyspnea ?R06.00 - Dyspnea, unspecified (ICD-10) Depression ?F32.A - Depression, unspecified (ICD-10) Lumbar degenerative disc disease ?M51.369 - Other intervertebral disc degeneration, lumbar region without mention of lumbar back pain or lower extremity pain (ICD-10) Postlaminectomy syndrome ?M96.1 - Postlaminectomy syndrome, not elsewhere classified (ICD-10) Coronary arteriosclerosis ?I25.10 - Atherosclerotic heart disease of [place] coronary artery without angina pectoris (ICD-10) C. difficile diarrhea ?A04.72 - Enterocolitis due to Clostridium difficile, not specified as recurrent (ICD-10) Bradycardia ?R00.1 - Bradycardia, unspecified (ICD-10) Anemia ?D64.9 - Anemia, unspecified (ICD-10) Abdominal hernia ?K46.9 - Unspecified abdominal hernia without obstruction or gangrene (ICD-10) Hypertension ?I10 - Essential (primary) hypertension (ICD-10) Bipolar 1 disorder ?F31.9 - Bipolar disorder, unspecified (ICD-10) Anxiety ?F41.9 - Anxiety disorder, unspecified (ICD-10) Diabetes ?E11.9 - Type 2 diabetes mellitus without complications (ICD-10) URIEL on CPAP ?G47.33 - Obstructive sleep apnea (adult) (pediatric) (ICD-10) Sleep apnea ?G47.30 - Sleep apnea, unspecified (ICD-10) High cholesterol ?E78.00 - Pure hypercholesterolemia, unspecified (ICD-10) CHF (congestive heart failure) ?I50.9 - Heart failure, unspecified (ICD-10) Surgical History H/O gastric bypass ?Z98.84 - Bariatric surgery status (ICD-10) S/P epidural steroid injection ?Z92.241 - Personal history of systemic steroid therapy (ICD-10) H/O colonoscopy ?Z98.890 - Other specified postprocedural states (ICD-10) H/O cervical spine surgery ?Z98.890 - Other specified postprocedural states (ICD-10) H/O bariatric surgery ?Z98.84 - Bariatric surgery status (ICD-10) History of hysterectomy ?Z90.710 - Acquired absence of both cervix and uterus (ICD-10) History of shoulder surgery ?Z98.890 - Other specified postprocedural states (ICD-10) History of neck surgery ?Z98.890 - Other specified postprocedural states (ICD-10) History of back surgery ?Z98.890 - Other specified postprocedural states (ICD-10) History of heart artery stent (~2009) ?Z95.5 - Presence of coronary angioplasty implant and graft (ICD-10) Family History Other Family history of DVT Family history of aneurysm Family history of cancer Family history of coronary artery disease Family history of diabetes mellitus Family history of heart disease Family history of hypertension Family history of myocardial infarction Family history of renal failure Family history of stroke Social History Within the past year, how often did you have a drink containing alcohol: never Score interpretation: A score less than 3 is consistent with normal alcohol consumption. Smoking status: Never smoker Non-prescribed substance use: denies use Previous occupational history: [employer] Highest level of school completed/degree received: high school graduate Little interest or pleasure in doing things: not at all Feeling down, depressed, or hopeless: not at all Meds Home Medications and Allergies Home Medications ?Medication ?Instructions ?Recorded ?Confirmed ?Type amlodipine 10 mg tablet 10 mg PO QDAY 12/18/22 01/26/25 History aspirin 81 mg chewable tablet 81 mg PO QDAY 12/18/22 01/26/25 History atorvastatin 80 mg tablet 80 mg PO QDAY 12/18/22 01/26/25 History buspirone 30 mg tablet 30 mg PO BID 12/18/22 01/26/25 History fenofibrate nanocrystallized 145 145 mg PO QDAY 12/18/22 01/26/25 History mg tablet gabapentin 600 mg tablet 600 mg PO QDAY PRN neuromuscular 12/18/22 01/26/25 History blockade isosorbide mononitrate 30 mg 30 mg PO QDAY 12/18/22 01/26/25 History tablet,extended release 24 hr metoprolol succinate 25 mg 12.5 mg PO QDAY 12/18/22 01/26/25 History tablet,extended release 24 hr sacubitril 49 mg-valsartan 51 mg 0.5 tab PO BID 12/18/22 01/26/25 History tablet (Entresto) tizanidine 4 mg tablet 4 mg PO Q8H PRN muscle spasticity 12/18/22 01/26/25 History cetirizine 10 mg tablet (Zyrtec) 10 mg PO DAILY PRN allergy symptoms 01/01/23 01/26/25 History tirzepatide 5 mg/0.5 mL 5 mg subcut QWEEK 10/01/24 01/26/25 History subcutaneous pen injector (Mounjaro) aripiprazole 30 mg tablet 30 mg PO DAILY 10/07/24 01/26/25 History benztropine 0.5 mg tablet 0.5 mg PO BID 10/07/24 01/26/25 History cholecalciferol (vitamin D3) 125 5,000 unit PO DAILY 10/07/24 01/26/25 History mcg (5,000 unit) capsule cyanocobalamin (vitamin B-12) 2,000 mcg sublingual DAILY 10/07/24 01/26/25 History 1,000 mcg sublingual lozenge fluoxetine 10 mg capsule 50 mg PO DAILY 10/07/24 01/26/25 History fluoxetine 40 mg capsule 40 mg PO DAILY 10/07/24 01/26/25 History fluticasone propionate 50 2 spray intranasal Q12H 10/07/24 01/26/25 History mcg/actuation nasal spray,suspension nitroglycerin 0.4 mg sublingual 0.4 mg sublingual Q5M PRN chest 10/07/24 01/26/25 History tablet pain sennosides 8.6 mg-docusate sodium 1 tab-cap PO DAILY 10/07/24 01/26/25 History 50 mg capsule oxycodone-acetaminophen 7.5 mg-325 1 tab PO BID PRN pain #60 tabs 12/01/24 01/26/25 Rx mg tablet (Percocet) cariprazine 6 mg capsule (Vraylar) 6 mg PO DAILY 01/13/25 01/26/25 History ropinirole 0.25 mg tablet 0.25 mg PO DAILY 01/13/25 01/26/25 History clindamycin HCl 300 mg capsule 300 mg PO TID #21 caps 01/20/25 Rx oxycodone-acetaminophen 7.5 mg-325 1 tab PO BID PRN pain #60 tabs 01/28/25 Rx mg tablet (Percocet) Allergies Allergy/AdvReac Type Severity Reaction Status Date / Time Sulfa (Sulfonamide Allergy Mild Hives Verified 10/07/24 11:26 Antibiotics) prochlorperazine (From AdvReac Intermediate Agitated Verified 10/07/24 11:26 Compazine) promethazine (From Phenergan) AdvReac Intermediate Agitated Verified 10/07/24 11:26 sulfamethoxazole (From AdvReac Mild Hives Verified 10/07/24 11:26 Bactrim) trimethoprim (From Bactrim) AdvReac Mild Hives Verified 10/07/24 11:26 Exam Narrative Exam Narrative: Psych-alert and oriented x 3. Attentive and appropriate, constitutionally normal, displays normal mood and affect per situation.? There are no obvious deficits in memory, reasoning, or intellect.? Skin-no obvious rashes, bruising, erythema noted to the patient's area of pain. Extremities- extremities are warm with minimal edema and palpable pulses. Lumbar-no significant tenderness to palpation noted in the lumbar spine and paraspinal musculature.? Pain is elicited with extension, and lateral rotation of the lumbar spine. Range of motion is slightly diminished with these motions due to pain. Coordination remains intact.? Gait remains non-antalgic. Assessment and Plan Assessment and Plan (1) Spinal stenosis of lumbar region at multiple levels: (2) Postlaminectomy syndrome: Plan 54yof who presents for spinal cord stim lead pull. endorses >50% relief with trial leads, so would like to move forward with scs implantation. i am in agreement. leads were removed with tips intact. no erythema, drainage, or other signs of infection noted.
--- OUTSIDE RECORDS SUMMARY | 2025-02-04 09:45 | XMS_ITS | CCD ---
Author Organization [facility] Care Team Providers [facility] Name Role Phone Peng Merino Admitting Unavailable Peng Merino Attending Unavailable GEOVANNI BRUNNER Primary Care Unavailable HAMMAD LING Referring Unavailabl e AL Procedure Practitioner Unavailab TK [place] Surgeon Unavailable Christian Hamilton Unavailable Janene Lew Primary Care Provider MD Christian Hamilton Attending Provider ELIER Bolivar Attending Provider [phone] Emma Bolivar Unavailable Halle Mac Unavailable Janene Lew Primary Care Provider NERISSA Hernandez Emergency Provider Ivan Sams Unavailable AICHHOLZ, MEDICAL TERRITORY MANAGER JANENE Consulting Unavailable AICHHOLZ, MEDICAL TERRITORY MANAGER JANENE Attending Unavailable AICHHOLZ, MEDICAL TERRITORY MANAGER JANENE Admitting Unavailable AICHHOLZ, MEDICAL TERRITORY MANAGER JANENE Primary Care Unavailable AICHHOLZ, MEDICAL TERRITORY MANAGER JANENE Consulting Unavailable AICHHOLZ, MEDICAL TERRITORY MANAGER JANENE Attending Unavailable AICHHOLZ, MEDICAL TERRITORY MANAGER JANENE Admitting Unavailable AICHHOLZ, MEDICAL TERRITORY MANAGER JANENE Primary Care Unavailable AICHHOLZ, MEDICAL TERRITORY MANAGER JANENE Primary Care Unavailable AICHHOLZ, MEDICAL TERRITORY MANAGER JANENE Consulting Unavailable AICHHOLZ, MEDICAL TERRITORY MANAGER JANENE Admitting Unavailable AICHHOLZ, MEDICAL TERRITORY MANAGER JANENE Attending Unavailable AYDIN Carrillo, DR MIGUEL Attending Unavailable AYDIN ., DR MIGUEL Admitting Unavailable AYDIN ., DR MIGUEL Consulting Unavailable AICHHOLZ, MEDICAL TERRITORY MANAGER JANENE Primary Care Unavailable AICHHOLZ, MEDICAL TERRITORY MANAGER JANENE Primary Care Unavailable DWAYNE FRIEDMAN Admitting Unavailable DWAYNE FRIEDMAN Attending Unavailable CLEMENT PLUMMER Consulting Unavailable Wan Jenkins Consulting Unavailable AICHHOLZ, MEDICAL TERRITORY MANAGER JANENE Primary Care Unavailable EVON TRAMMELL Attending Unavailable EVON TRAMMELL Admitting Unavailable EVON TRAMMELL Consulting Unavailable LUZ COELLO Consulting Unavailable NATHAN COLE Consulting Unavailable LIN GARRETT Consulting Unavailable AICHHOLZ, MEDICAL TERRITORY MANAGER JANENE Primary Care Unavailable AICHHOLZ, MEDICAL TERRITORY MANAGER JANENE Admitting Unavailable AICHHOLZ, MEDICAL TERRITORY MANAGER JANENE Attending Unavailable TIFFANY, DR ALEX Ashley Consulting Unavailable AICHHOLZ, MEDICAL TERRITORY MANAGER JANENE Consulting Unavailable AICHHOLZ, MEDICAL TERRITORY MANAGER JANENE Consulting Unavailable AICHHOLZ, MEDICAL TERRITORY MANAGER JANENE Attending Unavailable AICHHOLZ, MEDICAL TERRITORY MANAGER JANENE Admitting Unavailable AICHHOLZ, MEDICAL TERRITORY MANAGER JANENE Primary Care Unavailable DR KATHY LOBATO Consulting Unavailable AICHHOLZ, MEDICAL TERRITORY MANAGER JANENE Attending Unavailable AICHHOLZ, MEDICAL TERRITORY MANAGER JANENE Admitting Unavailable AICHHOLZ, MEDICAL TERRITORY MANAGER JANENE Primary Care Unavailable DR ALEX ALLEN V Consulting Unavailable AICHHOLZ, MEDICAL TERRITORY MANAGER JANENE Consulting Unavailable AICHHOLZ, MEDICAL TERRITORY MANAGER JANENE Consulting Unavailable AICHHOLZ, MEDICAL TERRITORY MANAGER JANENE Primary Care Unavailable AICHHOLZ, MEDICAL TERRITORY MANAGER JANENE Attending Unavailable AICHHOLZ, MEDICAL TERRITORY MANAGER JANENE Admitting Unavailable AICHHOLZ, MEDICAL TERRITORY MANAGER JANENE Primary Care Unavailable AICHHOLZ, MEDICAL TERRITORY MANAGER JANENE Admitting Unavailable AICHHOLZ, MEDICAL TERRITORY MANAGER JANENE Consulting Unavailable AICHHOLZ, MEDICAL TERRITORY MANAGER JANENE Attending Unavailable DR KATHY LOBATO Consulting Unavailable AICHHOLZ, MEDICAL TERRITORY MANAGER JANENE Primary Care Unavailable BAKHOUS, AZIZ Admitting Unavailable BAKHOUS, AZIZ Attending Unavailable AICHHOLZ, MEDICAL TERRITORY MANAGER JANENE Attending Unavailable AICHHOLZ, MEDICAL TERRITORY MANAGER JANENE Admitting Unavailable AICHHOLZ, MEDICAL TERRITORY MANAGER JANENE Primary Care Unavailable AICHHOLZ, MEDICAL TERRITORY MANAGER JANENE Primary Care Unavailable AICHHOLZ, MEDICAL TERRITORY MANAGER JANENE Consulting Unavailable AICHHOLZ, MEDICAL TERRITORY MANAGER JANENE Attending Unavailable AICHHOLZ, MEDICAL TERRITORY MANAGER JANENE Admitting Unavailable DR KATHY LOBATO Consulting Unavailable AICHHOLZ, MEDICAL TERRITORY MANAGER JANENE Primary Care Unavailable AICHHOLZ, MEDICAL TERRITORY MANAGER JANENE Admitting Unavailable AICHHOLZ, MEDICAL TERRITORY MANAGER JANENE Attending Unavailable AICHHOLZ, MEDICAL TERRITORY MANAGER JANENE Consulting Unavailable AICHHOLZ, MEDICAL TERRITORY MANAGER JANENE Primary Care Unavailable AMBER ., DOLORES Attending Unavailable AMBER ., DOLORES Admitting Unavailable RAMIREZ ., MR DELIA Consulting Unavailable AMBER ., DOLORES Consulting Unavailable ALEX AVINA Consulting Unavailable AICHHOLZ, MEDICAL TERRITORY MANAGER JANENE Primary Care Unavailable JP, EVON Attending Unavailable JP, EVON Admitting Unavailable JP, EVON Consulting Unavailable Aichholz, Janene J Primary Care Provider MD Valdemar Alonso Attending Provider [phone] MD Fauzia Huffman Attending Provider UnavailMD Halle Felton Referring Provider MARKEL HAQ Primary Care Unavailable Aichholz, Janene J Attending Unavailable Aichholz, Janene J Admitting Unavailable Aichholz, Janene J Primary Care Provider [phone] MD Fauzia Huffman Attending Provider UnavailMD Halle Felton Referring Provider MD Halle Mac Attending Provider [phone] Louann, Janene J Primary Care Provider MD Valdemar Alonso Attending Provider [phone] MD Alma Deng Admit Provider [phone] MD Emmanuel [facility] Other Provider MD Fernando Rosenberg Attending Provider MD Valdemar Alonso Attending Provider MD Valdemar Alonso Attending Provider MD Ban Clemente Attending Provider [phone] Markel Haq MD Primary Care Provider Louann PAVER LAYER, Janene Unavailable MARYA CASTORENA Attending Unavailable AICHHOLZ, JANENE Attending Unavailable BAN ARTIS Attending Unavailable MARYA CASTORENA Attending Unavailable AICHHOLZ, JANENE Referring Unavailable AICHJEREMIAH JANENE Attending Unavailable MARYA CASTORENA M Attending Unavailable PETMARYA HERR M Attending Unavailable AICHHOLRufus, JANENE Attending Unavailable Jnaene Lew J Primary Care Provider Valdemar Alonso MD Attending Provider Halle Mca MD Attending Provider ELTAHAWY, EHAB Attending Unavailable ELTAHAWY, EHAB Attending Unavailable ELTAHAWY, EHAB Admitting Unavailable ELTAHAWY, EHAB Attending Unavailable ELTAHAWY, EHAB Referring Unavailable ELTAHAWY, EHAB Referring Unavailable Kanani DMD, Joshua Unavailable Unavailable Janene Lew Attending Provider Kanani DMD, Joshua Attending Unavailable Kanani DMD, Joshua Unavailable Unavailable Marcella Conway MD Attending Unavailable Bakhous, Aziz Admitting Unavailable Bakhous, Aziz Attending Unavailable Janene Lew Primary Care Unavailable Bakhous, Aziz Admitting Unavailable Bakhous, Aziz Attending Unavailable Louann Janene J Primary Care Unavailable Celeste, Valdemar Admitting Unavailab le Celeste Valdemar Attending Unavailab le Janene Lew Primary Care Unavailable Allergies Allergy ClassificationReported Allergen(s)Allergy TypeDate of OnsetReaction(s) Facility (2 sources)CephalexinDrug Nbmdxpk68-05-2089Whf [facility] Repository (2 sources)LevamisoleDrug Ermcfui20-79-0067Hcg [facility] Repository (2 sources)Omeprazole; Translations: [OMEPRAZOLE]Drug Cxglemn27-69-5574Ohz [facility] Repository (14 sources)ProchlorperazineDrug Byhbnza07-85-7784PszmuixXsmWright-[facility] Repository (14 sources)Sulfamethoxazole / TrimethoprimDrug Ytqhzlf46-86-0068DyjeleyIzgMemorial Hospital Repository (12 sources)Penicillins (Antibiotic)Propensity to adverse reactionsUnknownNorth mySkin Other (20 sources)Promethazine; Translations: [PROMETHAZINE]Drug Jkgxupd22-47-8457 Unknown, SeizureCleveland Clinic Foundation (20 sources)empagliflozin; Translations: [EMPAGLIFLOZIN]Drug Jeococq10-31-4723 Unknown ReactionCleveland Clinic Foundation (20 sources)Penicillins; Translations: [Penicillins]Allergy to substance 21-74-3542UrltNthyytarbDoctors Hospital (20 sources)Prochlorperazine; Translations: [PROCHLORPERAZINE]Drug Allergy 78-42-2952AlgvxpiGktfznvzdTwin City Hospital (20 sources)Sulfamethoxazole; Translations: [SULFAMETHOXAZOLE]Drug Allergy 66-55-3544UmsrHqhlyshpmDoctors Hospital (12 sources)Trimethoprim; Translations: [trimethoprim]Drug Jpvokvu12-95-4163ElluKettering Health Dayton (1 source)Sulfonamides (Antibiotic)Drug allergy (disorder)08-92-8405HqoThe [facility] Rep[facility] (20 sources)zolpidem; Translations: [ZOLPIDEM]Drug Jnkdvsd26-16-1578YxocqjrOhiohealth Dublin Methodist HospitalComment on above:per pt (20 sources)Cephalexin; Translations: [CEPHALEXIN]Drug Brrjfhz63-89-1567VJ[facility] (20 sources)EsomeprazoleDrug Nqxczjs76-94-0239JZ intoleranceNORI Healthcare (20 sources)OmeprazoleDrug Evxnnqg12-33-8878DE intoleranceNORI Healthcare (20 sources)pantoprazole; Translations: [PANTOPRAZOLE]Drug Yvpblyq17-83-3665AH intoleranceNORI Healthcare (20 sources)Sulfamethoxazole / Trimethoprim; Translations: [SULFAMETHOXAZOLE-TRIMETHOPRIM]Drug Tpbdcnw04-97-1921AnacRRQH Healthcare (1 source)Doxycycline; Translations: [DOXYCYCLINE CALCIUM]Drug Gnvcsam02-60-4075 [facility] Repository (1 source)Esomeprazole; Translations: [ESOMEPRAZOLE MAGNESIUM]Drug Allergy 60-16-9571StjewsntvhOhioHealth Mansfield Hospital Repository (1 source)PH[place]; Translations: [PHENERGAN PLAIN]Propensity to adverse reactions to drug (disorder)44-94-0399PdborrmlhrOhioHealth Mansfield Hospital Repository (1 source)PromethazineDrug Ktruzkv89-16-4499HttwusxobCleveland Clinic Foundation Repository Medications Current Medications MedicationDrug Class(es)DatesSig (Normalized)Sig (Original)0.5 ML tirzepatide 15 MG/ML Auto-Injector [Mounjaro] (1 source)inject 1 mg by subcutaneous injection every weekMounjaro 7.5 mg/0.5 mL subcutaneous pen injector inject (7.5MG) by subcutaneous route every week 7.5 MG - Activeacetaminophen 325 mg / oxyCODONE hydrochloride 7.5 mg oral tablet (20 sources)Opioid AgonistStart: 10-01-2023 End: 03-86-8498gdhy 1 tablet by mouth every eight hours as needed for pain Oxycodone-Acetaminophen 7.5-325 mg tablet Active 1 TAB PO Every 8 hours as needed for pain October 16, 2023 1:11pm Complies with drug therapyStart: 06-24-2022 End: 84-01-1136xjzx 1 tablet by mouth every six hours as needed for pain Oxycodone-Acetaminophen 5-325 mg tablet Discontinued 1 TAB PO Q6H as needed for pain 10 3 June 24, 2022 August 15, 2023 10:12amtake 1 tablet by mouth in the morningoxyCODONE-acetaminophen (Percocet) 7.5-325 MG tablet Take 1 tablet by mouth in the morning and 1 tablet before bedtime. [id number] 200 actuat albuterol 0.09 mg/actuat metered dose inhaler (6 sources)beta2-Adrenergic AgonistStart: 27-31-6702soql 1 puff(s) by inhalation every four hoursAlbuterol Sulfate (Ventolin Hfa) 90 mcg/actuation HFA aerosol inhaler Active 2 PUFF INHALATION Q4H June 04, 2021 1:00amAlbuterol Active amLODIPine 10 mg oral tablet (20 sources)Dihydropyridine Calcium Channel BlockerStart: 10-16-2023 End: 89-96-2841aztb 1 tablet by mouth once dailyAmlodipine 10 mg tablet Active 10 MG PO Daily October 16, 2023 12:00am Complies with drug therapyStart: 08-15-2023 End: 48-66-0488qgqk 1 tablet by mouth once dailyAmlodipine 10 mg tablet Discontinued 10 MG PO Daily August 15, 2023 12:00am October 02, 2023 10:55amtake 1 tablet by mouth every twenty-four hoursamLODIPine Besylate 5 MG 1 tablet Orally Once a day ActiveamLODIPine Besylate ActiveARIPiprazole 30 mg oral tablet (20 sources)Atypical AntipsychoticStart: 96-52-6849ezew 1 tablet by mouth once dailyAripiprazole 30 mg tablet Active 30 MG PO Daily March 12, 2024 1:00am Complies with drug therapyStart: 08-15-2023 End: 63-79-0534xpif 1 tablet by mouth once dailyAripiprazole 20 mg tablet Discontinued 20 MG PO Daily August 15, 2023 12:00am October 16, 2023 1:13pmStart: 06-04-2021 End: 68-51-7934jdea 1 tablet by mouth once dailyAripiprazole 30 mg tablet Discontinued 30 MG PO Daily June 04, 2021 1:00am August 15, 2023 10:05amtake 1 tablet by mouth every twenty-four hoursAbilify 20 MG 1 tablet Orally Once a day Activetake 1 tablet by mouth every twenty-four hoursARIPiprazole 15 MG 1 tablet Orally Once a day takes 1100 Activeaspirin 81 mg delayed release oral tablet (20 sources)Platelet Aggregation Inhibitor, Nonsteroidal Anti-inflammatory Drug Start: 15-10-9673uxlw 1 tablet by mouth once dailyAspirin 81 mg tablet,delayed release (DR/EC) Active 81 MG PO Daily June 06, 2021 1:00am Complies with drug therapytake 1 tablet by mouth every twenty-four hoursAspirin 81 MG 1 tablet Orally Once a day Activeatorvastatin 80 mg oral tablet (20 sources)HMG-CoA Reductase InhibitorStart: 39-12-5554eurm 1 tablet by mouth once dailyAtorvastatin 80 mg tablet Active 80 MG PO Daily August 15, 2023 12:00am Complies with drug therapyStart: 06-04-2021 End: 93-80-5533uolj 1 tablet by mouth at bedtimeAtorvastatin 40 mg tablet Discontinued 40 MG PO Bedtime June 04, 2021 1:00am August 15, 2023 10:06am azithromycin 250 mg oral tablet (8 sources)Macrolide AntimicrobialStart: 03-06-2024 End: 83-03-0022lqawiothpcpp (Zithromax) 250 MG tablet Indications: Acute non- recurrent pansinusitis 2 pills day #1, then 1 pill day #2-#5 6 tablet 03/06/2024 06/16/2024 Discontinued (Therapy completed)benztropine mesylate 0.5 mg oral tablet (20 sources)Anticholinergic, AntihistamineStart: 71-81-5165vdjs 1 tablet by mouth twice dailyBenztropine 0.5 mg tablet Active 0.5 MG PO Twice daily March 12, 2024 1:00am Complies with drug therapyBiotin (6 sources)Biotin ActiveBlood Glucose Monitoring Suppl (True Metrix Air Glucose Meter) w/Device kit (20 sources)Start: 39-66-7800Yurua Glucose Monitoring Suppl (True Metrix Air Glucose Meter) w/Device kit Indications: Type 2 diabetes mellitus without complication, without long-term current use of insulin ([facility]) 1 each Daily 1 kit 11/03/2024 ActiveStart: 07-02-2023 End: 18-21-3463Acnbu Glucose Monitoring Suppl (True Metrix Air Glucose Meter) w/Device kit Indications: Type 2 diabetes mellitus without complication, without long-term current use of insulin ([facility]) 1 each Daily 1 kit 07/02/2023 11/03/2024 Discontinued (Reorder)Start: 87-06-9310Tdild Glucose Monitoring Suppl (True Metrix Air Glucose Meter) w/Device kit Indications: Type 2 diabetes mellitus without complication, without long-term current use of insulin ([facility]) 1 each Daily 1 kit 07/02/2023 ActiveStart: 59-31-3600Vgmjy Glucose Monitoring Suppl (True Metrix Air Glucose Meter) w/Device kit Indications: Type 2 diabetes mellitus without complication, without long-term current use of insulin 1 each Daily 1 kit 07/02/2023 ActiveStart: 50-48-7726Uokho Glucose Monitoring Suppl (True Metrix Air Glucose Meter) w/Device kit Indications: Type 2 diabetes mellitus without complication, without long-term current use of insulin ([facility]/H[facility]) 1 each Daily1 kit 07/02/2023 ActiveBlood Glucose Monitoring Suppl (True Metrix Meter) w/Device kit (2 sources)Start: 44-29-5180Reqeq Glucose Monitoring Suppl (True Metrix Meter) w/Device kit Indications: Type 2 diabetes mellitus without complication, without long-term current use of insulin (HCC) USE 1 TO CHECK GLUCOSE ONCE DAILY 1 kit 12/01/2024 ActivebusPIRone hydrochloride 30 mg oral tablet (20 sources)Start: 77-62-8723jwnt 1 tablet by mouth twice dailyBuspirone 30 mg tablet Active 30 MG PO Twice daily June 04, 2021 1:00am Complies with drug therapyCalcium Citrate + D 315-200 MG-UNIT (6 sources)take 1 tablet by mouth twice dailyCalcium Citrate + D 315-200 MG-UNIT 1 tablet Orally Twice a day Activecariprazine 6 mg oral capsule (20 sources)Atypical AntipsychoticStart: 11-29-2023 End: 90-16-8710Owctkgy 4.5 MG capsule 11/29/2023 02/19/2024 DiscontinuedStart: 89-50-1210qonm 1 capsule by mouth once dailyCariprazine 6 mg capsule Active 6 MG PO Daily August 15, 2023 12:00am Complies with drug therapyVraylar Active cetirizine hydrochloride 10 mg oral tablet (20 sources)Histamine-1 Receptor AntagonistStart: 45-68-5101bvro 1 tablet by mouth once dailyCetirizine (Zyrtec) 10 mg Tablet Active 10 MG PO Daily June 04, 2021 1:00am Complies with drug therapyCetirizine HCl Activecholecalciferol 0.125 mg oral capsule (20 sources)Vitamin DStart: 54-65-1946uqlc 1 capsule by mouth once daily Cholecalciferol (Vitamin D3) 125 mcg (5,000 unit) capsule Active 6000 UNIT PO Daily November 26, 2024 9:50am Complies with drug therapyStart: 08-15-2023 End: 45-98-3804tcpo 1 capsule by mouth once dailyCholecalciferol (Vitamin D3) 125 mcg (5,000 unit) capsule Discontinued 125 MCG PO Daily August 15, 2023 12:00am November 26, 2024 9:50amcholecalciferol (vitamin D3) 125 mcg (5,000 unit) tablet - Activetake 1 capsule by mouth in the morningcholecalciferol (Vitamin D- 3) 125 MCG (5000 UT) capsule Take 5,000 Units by mouth in the morning. Active ciprofloxacin 500 mg oral tablet (14 sources)Quinolone AntimicrobialStart: 12-05-2023 End: 41-31-7815kgdn 1 tablet by mouth in the morningciprofloxacin (Cipro) 500 MG tablet Indications: Left lower quadrant abdominal pain Take 1 tablet (500 mg) by mouth in the morning and 1 tablet (500 mg) before bedtime. Do all this for 10 days. 20 tablet 12/05/2023 12/15/2023 ActiveStart: 08-13-2021 End: 08-00-6940fgvz 1 tablet by mouth every two hoursCiprofloxacin Hcl (Cipro) 500 mg Tablet Discontinued 500 MG PO Q12H August 13, 2021 12:00am 2023 10:07am administer dose at least 2 hrs before/6 hrs after dairy products, calcium, zinc, and/or iron-containing productsdocusate sodium 50 mg / sennosides, group home 8.6 mg oral tablet (20 sources)take 2 tablets by mouth once dailysennosides 8.6 mg-docusate sodium 50 mg tablet take 2 tablet by oral route every day 2.00 tablet - Active escitalopram 20 mg oral tablet (13 sources)Serotonin Reuptake InhibitorStart: 21-52-9927nufn 20 mg by mouth once dailyEscitalopram Oxalate Active 20 MG PO Daily June 04, 2021 1:00am Escitalopram Oxalate in am 1100 Activefenofibrate 145 mg oral tablet (20 sources)Peroxisome Proliferator Receptor alpha AgonistStart: 12-05-2019 End: 81-46-0595vidh 1 tablet by mouth once dailyFenofibrate Nanocrystallized 145 mg tablet Active 145 MG PO Daily June 04, 2021 1:00am Complies with drug therapyFenofibrate Activefluconazole 150 mg oral tablet (5 sources)Azole AntifungalStart: 12-18-2023 End: 66-59-1134dwgybpjfbdo (Diflucan) 150 MG tablet Indications: Antibiotic- induced yeast infection 1 dose, repeatin 72 hours 2 tablet 12/18/2023 02/19/2024 DiscontinuedFLUoxetine 40 mg oral capsule (20 sources)Serotonin Reuptake InhibitorStart: 09-58-9973kost 1 capsule by mouth once dailyFluoxetine 40 mg capsule Active 40 MG PO Daily December 16, 2024 12:00am Complies with drug therapyStart: 10-10-2023 End: 85-10-8721CBIkqdqytc (PROzac) 20 MG capsule Take 20 mg by mouth Daily TAKE 1 CAPSULE BY MOUTH ONCE DAILY TAKEWITH 40 MG FOR A TOTAL OF 60 MG DAILY 10/09/2024 ActiveStart: 10-01-2023 End: 41-01-9669qwlu 1 capsule by mouth once dailyFluoxetine 10 mg capsule Discontinued 10 MG PO Daily October 01, 2023 12:00am October 16, 2023 1:08pm fluticasone propionate 0.05 mg/actuat metered dose nasal spray (20 sources)CorticosteroidStart: 17-48-3097ujvt 2 spray(s) nasal route once dailyfluticasone (Flonase) 50 MCG/ACT nasal spray Indications: Seasonal allergies Administer 2 sprays into each nostril Daily 16 g 5 10/24/2023 Active Start: 06-04-2021 End: 26-14-7059nsrb 1-2 spray(s) nasal route once daily as neededfluticasone propionate 50 mcg/actuation nasal spray,suspension spray 1 - 2 spray by intranasal route every day in each nostril as needed 50-100 MCG - Active Fluticasone Propionate Activegabapentin 600 mg oral tablet (20 sources)Anti-epileptic AgentStart: 12-08-2024 End: 53-10-0617iovl 1 tablet by mouth twice daily as neededgabapentin (Neurontin) 600 MG tablet Indications: Restless leg syndrome Take 1 tablet (600 mg) by mouth 2 (two) times a day as needed (RLS) 60 tablet 2 12/08/2024 01/07/2025 ActiveStart: 10-23-2023 End: 02-60-8569mrto 1 tablet by mouth twice daily as neededgabapentin (Neurontin) 600 MG tablet Indications: Restless leg syndrome Take 1 tablet (600 mg) by mouth 2 (two) times a day as needed (RLS) 60 tablet 2 07/25/2024 Active Start: 10-02-2023 End: 36-76-0333neqt 1 tablet by mouth every eight hours as neededGabapentin 600 mg tablet Active 600 MG PO Every 8 hours as needed for restless leg(s) October 16, 2023 1:10pm Complies with drug therapyStart: 08-15-2023 End: 20-57-4876erfh 1 tablet by mouth every six hoursGabapentin 600 mg tablet Discontinued 600 MG PO Every 6 hours August 15, 2023 12:00am October 02, 2023 10:34amStart: 69-22-9799iiyg 1 tablet by mouth every twelve hoursGabapentin 600 MG 1 tablet Orally TWICE A DAY for 20 days Oct, ActiveStart: 11-10-2021 take 2 tablets by mouth every twelve hoursGabapentin 600 MG 2 tablets Orally bid for 20 days Oct, ActiveStart: 20-63-0639beuz 1-2 capsules by mouth twice dailyGabapentin 300 MG 1-2 capsule Orally twice a day for 30 day(s) Sep, ActiveStart: 52-21-8892rkxs 1 capsule by mouth every twenty-four hours Gabapentin 300 MG 1 capsule Orally Once a day for 30 day(s) Nov, Active End: 71-78-0299xqdg 1 tablet by mouth every eight hoursgabapentin 600 mg tablet take 1 tablet by oral route 3 times every day 600 MG - No Longer ActivehydroCHLOROthiazide 12.5 mg oral tablet (1 source)Thiazide Diuretictake 1 tablet by mouth every twenty-four hours hydroCHLOROthiazide 12.5 MG 1 tablet in the morning Orally Once a day Xgopjz41 hr isosorbide mononitrate 30 mg extended release oral tablet (20 sources)Nitrate VasodilatorStart: 41-46-7309jjfr 1 tablet by mouth every twenty-four hoursIsosorbide Mononitrate 30 mg tablet extended release 24 hr Active MG PO March 12, 2024 1:00am Complies with drug therapyStart: 06-04-2021 End: 59-09-0421gmyc 1 tablet by mouth once daily, then take 1 tablet by mouth every twenty-four hoursIsosorbide Mononitrate 30 mg tablet extended release 24 hr Discontinued 30 MG PO Daily June 04, 2021 1:00am October 02, 2023 10:56amtake 1 tablet by mouth every twenty-four hoursIsosorbide Mononitrate 10 MG 1 tablet Orally once a day for 30 day(s) Activemagnesium oxide 400 mg oral tablet (19 sources)Start: 95-13-1447fjwl 1 tablet by mouth every twenty-four hours Magnesium Oxide 400 MG 1 tablet Orally Once a day for 30 day(s) Nov, Activetake 1 tablet by mouth once dailytake 1 tablet by mouth once daily Magnesium Oxide 400 (241.3 Mg) MG TAKE 1 TABLET BY MOUTH ONCE DAILY for 30 ActivemetFORMIN hydrochloride 500 mg oral tablet (6 sources)BiguanideStart: 22-63-1437dxqc 1 tablet by mouth every twenty-four hoursmetFORMIN HCl 500 mg 1 tablet with meals Orally Once a day for 30 day(s) Jan, Ixtjti55 hr metoprolol succinate 25 mg extended release oral tablet (19 sources)beta-Adrenergic BlockerStart: 51-09-8267zltd 2 tablets by mouth once dailyMetoprolol Succinate 25 mg tablet extended release 24 hr Active 12.5 MG PO Daily June 04, 2021 1:00am Complies with drug therapyStart: 06-04-2021 take 12.5 mg by mouth once dailyMetoprolol Succinate Active 12.5 MG PO Daily June 04, 2021 1:00amtake 1 tablet by mouth once dailymetoprolol succinate ER 25 mg tablet,extended release 24 hr take 1 tablet by oral route every day 25 MG - Activetake 0.5 tablet by mouth once dailyToprol XL 25 MG 1/2 tablet Orally Once a day ActiveMetoprolol Succinate ER Activemetoprolol succinate XL (Toprol- XL) 12.5 mg 24 hr split tablet (20 sources)metoprolol succinate XL (Toprol-XL) 12.5 mg 24 hr split tablet Take 12.5 mg by mouth Daily Pt has 25mg tabs and slitting the tab in half = taking 1/2 of 25mg ActivemetroNIDAZOLE 500 mg oral tablet (3 sources)Nitroimidazole AntimicrobialStart: 12-05-2023 End: 68-81-5269bjom 1 tablet by mouth every eight hoursmetroNIDAZOLE (Flagyl) 500 MG tablet Indications: Left lower quadrant abdominal pain Take 1 tablet (500 mg) by mouth every 8 (eight) hours for 10 days No alcohol 30 tablet 12/05/2023 12/15/2023 ActiveMounjaro 5 MG/0.5ML solution auto-injector (2 sources)Start: 02-10-2024 End: 53-59-7587Eiqqpmjf 5 MG/0.5ML solution auto-injector inject 5 mg subcutaneously every 7 (seven) days for 28 days 02/10/2024 02/19/2024 Discontinuednitroglycerin 0.4 mg sublingual tablet (20 sources)Nitrate VasodilatorStart: 64-60-7455Mywlzquihodlz 0.4 mg tablet, sublingual Active 0.4 MG SUBLINGUAL every 5 to 15 minutes as needed March 12, 2024 1:00am Complies with drug therapyStart: 17-63-6594bnwktcoqqjphk (Nitrostat) 0.[address] 1 TABLET UNDER TONGUE FOR CHEST PAIN. CALL 911 IF NO IMPROVEMENT AFTER 5 MIN. REPEAT DOSE TWICE IF NEEDED 12/18/2023 Active Nitrostat 0.4 MG Sublingual Activeondansetron 4 mg oral tablet (1 source)Serotonin-3 Receptor AntagonistStart: 01-84-5730berg 1 tablet by mouth three times daily as needed for nauseaZofran 4 mg 1 tablet Orally TID as needed for nausea for 5 days May, Dlgwmu20 hr paliperidone 3 mg extended release oral tablet (12 sources)Atypical AntipsychoticStart: 12-27-2023 End: 65-09-4928efgn 1 tablet by mouth once daily in the morningpaliperidone (Invega) 3 MG 24 hr tablet TAKE 1 TABLET BY MOUTH DAILY IN THE MORNING 12/27/2023 06/16/2024 Discontinued (Therapy completed)pioglitazone 45 mg oral tablet (20 sources)Peroxisome Proliferator Receptor alpha Agonist, Peroxisome Proliferator Receptor gamma Agonist, ThiazolidinedioneStart: 54-23-3022ltyd 1 tablet by mouth once dailyPioglitazone (Actos) 45 mg tablet Active 45 MG PO Daily August 15, 2023 12:00am Complies with drug therapyStart: 06-04-2021 End: 97-24-5021Uzqgupxqwvtx 30 mg tablet Discontinued 45 MG PO Daily June 04, 2021 1:00am August 15, 2023 10:05amStart: 06-04-2021 End: 33-22-5348fjst 45 mg by mouth once dailyPioglitazone Discontinued 45 MG PO Daily June 04, 2021 1:00am August 15, 2023 10:05amtake 1 tablet by mouth every twenty-four hoursActos 45 MG 1 tablet Orally Once a day ActivePioglitazone HCl ActivePotassium (6 sources)Potassium ActiverOPINIRole 0.25 mg oral tablet (20 sources)Nonergot Dopamine AgonistStart: 03-12-2024 End: 49-52-6186vrif 1 tablet by mouth once daily at bedtimeRopinirole 0.25 mg tablet Active 0.25 MG PO Daily at bedtime March 12, 2024 1:00am Complies with drug therapyStart: 10-24-2023 End: 51-92-1294uwyn 1 tablet by mouth at bedtimerOPINIRole (Requip) 0.25 MG tablet Indications: Restless leg syndrome Take 1 tablet (0.25 mg) by mouth at bedtime 30 tablet 2 12/18/2023 01/17/2024 Activesacubitril 49 mg / valsartan 51 mg oral tablet (20 sources)Angiotensin 2 Receptor BlockerStart: 10-01-2023 End: 84-22-5555gxds 0.5 tablet by mouth twice dailySacubitril-Valsartan (Entresto) 49-51 mg tablet Active 0.5 TAB PO Twice daily October 16, 2023 1:24pm Complies with drug therapysacubitril-valsartan (Entresto) 49-51 MG tablet Take 0.5 tablets by mouth in the morning and 0.5 tablets before bedtime. Pt is to take 1/2 tab in morning and 1/2 tab at night to equal 1 tab per day. Active Tirzepatide (3 sources)Start: 99-16-8156Zixfbowbwgb (Mounjaro) 7.5 mg/0.5 mL pen injector Active 7.5 MG SUBCUT every week March 12, 2024 1:00am Complies with drug therapyStart: 57-04-3890Oqbjhfmlsex (Mounjaro) 5 MG/0.5ML solution pen-injector (2 sources)Start: 12-19-2023 End: 42-06-5294Phqrnjjblnh (Mounjaro) 5 MG/0.5ML solution pen-injector Indications: Type 2 diabetes mellitus with stage 4 chronic kidney disease, without long-term current use of insulin (CMS/HCC) 5 mg by Other route every 7 (seven) days for 28 days 2 mL 3 12/19/2023 01/16/2024 ActiveTirzepatide (Mounjaro) 7.5 MG/0.5ML solution auto-injector (20 sources)Start: 40-83-0453xspgfv 7.5 mg by subcutaneous injection every week Tirzepatide (Mounjaro) 7.5 MG/0.5ML solution auto-injector Indications: Type 2 diabetes mellitus with other circulatory complications (HCC) INJECT 7.5MG SUBCUTANEOUSLY ONCE A WEEK 2 mL 2 11/28/2024 ActiveStart: 34-73-8063pawrau 7.5 mg by subcutaneous injection every weekTirzepatide (Mounjaro) 7.5 MG/0.5ML solution auto-injector Indications: Type 2 diabetes mellitus with other circulatory complications (HCC) INJECT 7.5 MG SUBCUTANEOUSLY ONCE A WEEK 2 mL 1 10/08/2024 ActiveStart: 85-12-4704stjlig 7.5 mg by subcutaneous injection every weekTirzepatide (Mounjaro) 7.5 MG/0.5ML solution auto-injector Indications: Type 2 diabetes mellitus with other circulatory complications (HCC) INJECT 7.5 MG SUBCUTANEOUSLY UNDER THE SKIN 1 TIME PER WEEK2 mL 3 06/30/2024 ActiveStart: 49-38-7036bdeqfm 7.5 mg by subcutaneous injection every weekTirzepatide (Mounjaro) 7.5 MG/0.5ML solution auto-injector Indications: Type 2 diabetes mellitus with other circulatory complications INJECT 7.5 MG SUBCUTANEOUSLY UNDER THE SKIN 1 TIME PER WEEK 2 mL 3 06/30/2024 ActiveStart: 32-89-9826ffqorz 7.5 mg by subcutaneous injection every weekTirzepatide (Mounjaro) 7.5 MG/0.5ML solution auto-injector Indications: Type 2 diabetes mellitus with other circulatory complications (CMS/HCC) Inject 7.5 mg under the skin 1 (one) time per week 2 mL3 02/19/2024 ActivetiZANidine 4 mg oral tablet (20 sources)Central alpha-2 Adrenergic AgonistStart: 11-12-2024 End: 74-64-0749vbus 1 tablet by mouth every eight hours as needed for muscle spasms and muscle spasmstiZANidine (Zanaflex) 4 MG tablet Indications: Muscle spasm Take 1 tablet (4 mg) by mouth every 8 (eight) hours if needed for muscle spasms 90 tablet 1 11/12/2024 12/12/2024 ActiveStart: 08-15-2023 End: 37-13-0378owfq 1 tablet by mouth every eight hours as needed for muscle spasms and muscle spasmstiZANidine (Zanaflex) 4 MG tablet Indications: Muscle spasm Take 1 tablet (4 mg) by mouth every 8 (eight) hours if needed for muscle spasms 90 tablet 1 09/02/2024 ActiveStart: 06-04-2021 End: 48-68-5389xwdc 1 tablet by mouth at bedtimeTizanidine 4 mg tablet Discontinued 4 MG PO Bedtime June 04, 2021 1:00am August 13, 2021 2:52pm Start: 06-04-2021 End: 22-82-0811wwcz 4 mg by mouth at bedtimeTizanidine Discontinued 4 MG PO Bedtime June 04, 2021 1:00am August 13, 2021 2:52pmtiZANidine HCl Active Vitamin D3 5000 UNIT (12 sources)take 1 capsule by mouth once dailytake 1 capsule by mouth once daily Vitamin D3 5000 UNIT 1 capsule Orally Once a day for 30 day(s) Active Completed/Discontinued Medications MedicationDrug Class(es)DatesSig (Normalized)Sig (Original)alogliptin 25 mg oral tablet (1 source)Start: 03-50-2641scgf 1 tablet by mouth every twenty-four hours Alogliptin Benzoate 25 MG 1 tablet Orally Once a day for 30 day(s) Sep, Not-Takingcalcium citrate 1040 mg oral tablet (1 source)Start: 19-73-8342rljw 1 tablet by mouth once dailyCalcium Citrate 1040 MG 1 tablet Orally Once a day for 30 day(s) Sep, Not-Takingcarvedilol 25 mg oral tablet (1 source)alpha-Adrenergic Seema, beta-Adrenergic Blockertake 1 tablet by mouth every twelve hoursCarvedilol 25 MG 1 tablet Orally BID for 30 Not-Taking cyclobenzaprine hydrochloride 10 mg oral tablet (11 sources)Muscle RelaxantStart: 08-13-2021 End: 45-45-1143olfm 1 tablet by mouth three times daily as needed for muscle spasmsCyclobenzaprine 10 mg tablet Discontinued 10 MG PO Three times daily as needed for back spasms August 13, 2021 12:00am June 24, 2022 6:53pm doxycycline hyclate 100 mg oral capsule (1 source)Tetracycline-class Drugtake 1 capsule by mouth every twelve hours Doxycycline Hyclate 100 MG 1 capsule Orally Twice a day for 30 Not-Taking furosemide 20 mg oral tablet (20 sources)Loop DiureticStart: 04-30-2023 End: 30-20-1873leyv 1 tablet by mouth once dailyFurosemide (Lasix) 20 mg tablet Discontinued 20 MG PO Daily August 15, 2023 12:00am November 2659:42amtake 1 tablet by mouth every twenty-four hoursLasix 20 MG 1 tablet Orally Once a day ActiveglipiZIDE 5 mg oral tablet (20 sources)SulfonylureaStart: 06-04-2021 End: 41-16-6504dlah 1 tablet by mouth once dailyGlipizide 5 mg tablet Discontinued 5 MG PO Daily June 04, 2021 1:00am August 15, 2023 10:08amtake 0.5 tablet by mouth once dailyglipiZIDE 5 MG 1/2 tablet Orally Once a day Active lamoTRIgine 200 mg oral tablet (12 sources)Mood Stabilizer, Anti-epileptic AgentStart: 08-15-2023 End: 89-15-4865nord 1 tablet by mouth once dailyLamotrigine (Lamictal) 200 mg tablet Discontinued 200 MG PO Daily August 15, 2023 12:00am March 12, 2024 10:32amtake 1 tablet by mouth every twenty-four hoursLaMICtal 200 MG 1 tablet Orally Once a day Activelidocaine 0.05 mg/mg medicated patch (9 sources)Antiarrhythmic, Amide Local AnestheticStart: 06-24-2022 End: 30-02-0480dlaze 1 dose topically once daily as needed for painLidocaine 5 % adhesive patch,medicated Discontinued 1 PATCH TOPICAL Daily as needed for pain June 24, 2022 1:00am August 15, 2023 10:08am leave on most painful area for up to 12 hrslinagliptin 5 mg oral tablet (1 source)Dipeptidyl Peptidase 4 InhibitorStart: 45-08-9786plxl 1 tablet by mouth every twenty-four hoursTradjenta 5 MG 1 tablet Orally Once a day for 30 day(s) Nov, Not-Takinglisinopril 40 mg oral tablet (20 sources)Angiotensin Converting Enzyme InhibitorStart: 06-04-2021 End: 86-86-4275pvvf 1 tablet by mouth once dailyLisinopril 40 mg tablet Discontinued 40 MG PO Daily June 04, 2021 1:00am August 15, 2023 10:09am methylPREDNISolone 4 mg oral tablet (9 sources)CorticosteroidStart: 06-24-2022 End: 75-10-9737Vlranajikyxbslxcxj 4 mg tablets,dose pack Discontinued 0 PO .COMPLEX June 24, 2022 1:00am 2023 10:09am orally per package directionsStart: 06-24-2022 End: 01-20-1966Felkofembsoqaigaym Discontinued 0 PO .COMPLEX June 24, 2022 1:00am August 15, 2023 10:09am orally per package directionsStart: 06-24-2022 Methylprednisolone Active 0 PO .COMPLEX June 24, 2022 1:00am orally per package directionsStart: 60-01-7067Mqhixfvpuczmbscdke Active 0 PO .COMPLEX June 24, 2022 12:00am orally per package directionsmirtazapine 15 mg oral tablet (12 sources)Start: 06-04-2021 End: 55-45-4745umot 2 tablets by mouth at bedtimeMirtazapine 15 mg tablet Discontinued 30 MG PO Bedtime June 04, 2021 1:00am August 15, 2023 10:11am Start: 06-04-2021 End: 86-52-5742zfml 30 mg by mouth at bedtimeMirtazapine Discontinued 30 MG PO Bedtime June 04, 2021 1:00am August 15, 2023 10:11amMirtazapine before bed, 2130 Activemometasone furoate 0.05 mg/actuat metered dose nasal spray (6 sources)CorticosteroidStart: 10-01-2023 End: 70-01-2965syfh 1 spray(s) nasal route once dailyMometasone (Allergy Nasal (Mometasone)) 50 mcg/actuation spray,non-aerosol Discontinued 2 SPRAY INTRANASAL Daily October 01, 2023 12:00am October 16, 2023 1:11pm administer into each nostrilMounjaro 5 MG/0.5ML solution pen-injector (8 sources)Start: 10-15-2023 End: 34-71-2353Cqaybepi 5 MG/0.5ML solution pen-injector 5 mg by Other route every 7 (seven) days 10/15/2023 12/19/2023 Discontinued (Reorder)Start: 87-13-8344Lhcuibfp 5 MG/0.5ML solution pen-injector 5 mg by Other route every 7 (seven) days 10/15/2023 ActiveMultivitamin preparation (2 sources)Start: 54-55-4162txqs 1 tablet by mouth once dailyMulti-Vitamin - 1 tablet Orally Once a day for 30 day(s) Sep, Not-TakingStart: 03-22-2018 take 1 tablet by mouth once dailyMulti-Vitamin - 1 tablet Orally Once a day for 30 day(s) Mar, ActiveoxyCODONE hydrochloride 5 mg oral tablet (11 sources)Opioid AgonistStart: 08-13-2021 End: 66-10-3739twxl 5-10 mg by mouth every six hours as needed for painOxycodone 5 mg Tablet Discontinued 5 - 10 MG PO Q6H as needed for Pain 50 August 13, 2021 June 24, 2022 6:53pmpramipexole dihydrochloride 0.25 mg oral tablet (6 sources)Nonergot Dopamine AgonistStart: 10-01-2023 End: 59-01-4496wuyc 1 tablet by mouth once daily at bedtimePramipexole 0.25 mg tablet Discontinued 0.25 MG PO Daily at bedtime October 01, 2023 12:00am October 1:12pmpredniSONE 10 mg oral tablet (11 sources)Start: 08-13-2021 End: 73-10-1536Ivzsnklhxt 10 mg tablets,dose pack Discontinued 1 dose pk PO per package directions August 13, 2021 12:00am June 24, 2022 6:53pm take 4 tabs for 3 days then take 3 tabs for 3 days then take 2 tabs for 3 days then take 1 tab for 3 daysStart: 08-13-2021 End: 19-45-7201Pielofyain Discontinued 1 dose pk PO per package directions August 13, 2021 12:00am June 6:53pm take 4 tabs for 3 days then take 3 tabs for 3 days then take 2 tabs for 3 days then take 1 tab for 3 daysStart: 08-13-2021 End: 81-31-5273Ddbpmrwfnb Discontinued 1 dose pk PO per package directions August 12, 2021 11:00pm June 5:53pm take 4 tabs for 3 days then take 3 tabs for 3 days then take 2 tabs for 3 days then take 1 tab for 3 daysStart: 95-30-0190Kyuaqnojqc Active 1 dose pk PO per package directions August 13, 2021 12:00am take 4 tabs for 3days then take 3 tabs for 3 days then take 2 tabs for 3 days then take 1 tab for 3 daysspironolactone 25 mg oral tablet (17 sources)Aldosterone AntagonistStart: 10-01-2023 End: 65-23-8547tjug 1 tablet by mouth once dailySpironolactone 25 mg tablet Discontinued 25 MG PO Daily October 01, 2023 12:00am October 02, 2023 10:55am On Hold: Until cleared by NephrologyStart: 80-99-1524idmw 50 mg by mouth once daily Spironolactone Active 50 MG PO Daily June 04, 2021 1:00amSpironolactone ActiveTirzepatide (6 sources)Start: 10-01-2023 End: 75-67-8889Bzkldtjkoai (Mounjaro) 2.5 mg/0.5 mL pen injector Discontinued 2.5 MG SUBCUT .weekly October 01, 2023 12:00am October 16, 2023 1:12pmStart: 38-46-6806Gohhsrkglnk (Mounjaro) 2.5 mg/0.5 mL pen injector Active 2.5 MG SUBCUT .weekly October 01, 2023 12:00amTirzepatide (8 sources)Start: 03-12-2024 End: 33-22-7679Kfijgmypahc (Mounjaro) 5 mg/0.5 mL pen injector Discontinued 7.5 MG SUBCUT every week March 12, 2024 10:32am March 12, 2024 10:38am Start: 10-16-2023 End: 59-26-9407Irjlvswzuph (Mounjaro) 5 mg/0.5 mL pen injector Discontinued 5 MG SUBCUT every week October 16, 2023 12:00am March 12, 2024 10:38amStart: 88-22-5559Vltwjrlputa (Mounjaro) 5 mg/0.5 mL pen injector Active 5 MG SUBCUT every week October 16, 2023 12:00amTriamcinolone (3 sources)CorticosteroidStart: 10-01-2023 End: 78-81-3761Sbmqnkqfmmtvv Acetonide Discontinued 110 MCG INTRANASAL Daily October 01, 2023 12:00am October 16, 2023 1:12pmStart: 47-05-3002Zhpvfqkbsbkff Acetonide Active 110 MCG INTRANASAL Daily October 01, 2023 12:00amTriamcinolone Acetonide 55 mcg/actuation aerosol (3 sources)Start: 10-01-2023 End: 06-54-0145Dfibtndkswrdb Acetonide 55 mcg/actuation aerosol Discontinued 110 MCG INTRANASAL Daily October 01, 2023 12:00am October 16, 2023 1:12pmvitamin b12 2.5 mg sublingual tablet (20 sources)Vitamin J35Hspkh: 11-26-2024 End: 05-45-3172hghu 1 tablet under the tongue once dailyCyanocobalamin (Vitamin B-12) 2,500 mcg tablet, sublingual Discontinued 2500 MCG SUBLINGUAL Daily November 26, 2024 9:41am November 26, 2024 9:48amStart: 03-12-2024 End: 23-36-3428Dtaqdwjoakorkg (Vitamin B-12) 2,500 mcg tablet, sublingual Active 2500 MCG SUBLINGUAL Every 48 hours November 26, 2024 9:48am Complies with drug therapyStart: 10-01-2023 End: 77-86-6210vgyy 1 tablet under the tongue once dailyCyanocobalamin (Vitamin B-12) 2,500 mcg tablet, sublingual Discontinued 2500 MCG SUBLINGUAL Daily October 01, 2023 12:00am March 12, 2024 10:47amStart: 01-29-2771ouea 1 tablet by mouth once dailyCyanocobalamin 500 MCG 1 tablet Orally Once a day for 30 day(s) Sep, Not-Takingcyanocobalamin (vitamin B-12) 2,500 mcg tablet - Active Cyanocobalamin (Vitamin B-12) [address] 5,000 mg under the tongue 1 (one) time each day Activetake 1 tablet by mouth once daily Cyanocobalamin 500 MCG 1 Tablet Orally Once a day for 30 day(s) Not-Taking Problems Active Problems Problem ClassificationProblemDateDocumented DateEpisodic/ChronicAcute and unspecified renal failure (20 sources)Acute renal failure syndrome; Translations: [Acute kidney failure, unspecified]Onset: 173112-69-3119OcbxlkamIhisptic reactions (12 sources)Environmental allergy; Translations: [Other allergy status, other than to drugs and biological substances]EpisodicAnxiety disorders (20 sources)Generalized anxiety disorder; Translations: [Generalized anxiety disorder]Onset: 609857-25-0018WrqxpvtLdtidkp kidney disease (20 sources)Chronic kidney disease stage 3; Translations: [Chronic kidney disease, stage 3 unspecified]Onset: 502474-22-8059WgihetqInusxvj kidney disease (2 sources)Chronic kidney disease; Translations: [Chronic kidney disease, stage 3b]Onset: 48-73-6994Itlxyeuclz heart failure; nonhypertensive (20 sources)Chronic diastolic heart failure; Translations: [Chronic diastolic (congestive) heart failure]Onset: 067583-22-9493PpmvbcwTpwrmmua atherosclerosis and other heart disease (20 sources)Coronary arteriosclerosis; Translations: [Atherosclerotic heart disease of [place] coronary artery without angina pectoris]Onset: 09-11-2022 04-50-3480LrkqqwqFaiiipkxer and other anemia (20 sources)Anemia; Translations: [Anemia, unspecified]Onset: 04-30-2023 Resolved: 392721-05-7771MsejvismRfdvelks mellitus with complications (20 sources)Type 2 diabetes mellitus; Translations: [Type 2 diabetes mellitus with hypoglycemia without coma]Onset: 10-02-2021 Resolved: 32-05-1835WjtvqvkLvloflko mellitus without complication (1 source)Type 2 diabetes mellitus without complications; Translations: [TYPE 2 DM WITHOUT COMPLICATIONS]Onset: 14-06-9446LgedkaiYvdogtffd of lipid metabolism (20 sources)Dyslipidemia; Translations: [Hyperlipidemia, unspecified]Onset: 30-61-4599XmohkemHvcbeafsk of teeth and jaw (20 sources)Infection of tooth; Translations: [Periapical abscess without sinus] Onset: 09-20-2023 Resolved: 729047-49-3363XnwthdmrSkpkusrepkfpsu and diverticulitis (20 sources)Diverticulosis of large intestine; Translations: [Diverticulosis of large intestine without perforation or abscess without bleeding]Onset: 009539-51-0096MrufmliSuevjpkysg disorders (20 sources)Gastroesophageal reflux disease; Translations: [Gastro-esophageal reflux disease without esophagitis]Onset: 45-67-3903SiwjtdpNqqkeanli hypertension (20 sources)Essential hypertension; Translations: [Essential (primary) hypertension]Onset: 943498-24-6896UeutrrxQgdqo and electrolyte disorders (20 sources)Hyperkalemia; Translations: [Hyperkalemia]Onset: 54-55-8183Dxatusjs Headache; including migraine (20 sources)Tension-type headache; Translations: [Tension-type headache, unspecified, not intractable]Onset: 389932-32-8081GjgqzwgVjdnmmiaqhfs with complications and secondary hypertension (20 sources)Hypertensive renal disease; Translations: [Hypertensive chronic kidney disease with stage 1 throughstage 4 chronic kidney disease, or unspecified chronic kidney disease]Onset: 52-33-5847ZgblskcBlhtoez and fatigue (20 sources)Decline in functional status; Translations: [Other malaise]Onset: 09-11-2023 Resolved: 869612-66-2412JmulkadeTqry disorders (20 sources)Bipolar disorder, unspecified; Translations: [Depressive disorder] Onset: 03-22-2012 Resolved: 159245-16-8858TjnvuliNxyibgpcwwc chest pain (20 sources)Chest pain; Translations: [Other chest pain]Onset: 09-11-2022 28-01-1341XlispqqtOcmdgsbmtla deficiencies (20 sources)Vitamin D deficiency; Translations: [Vitamin D deficiency, unspecified]Onset: 607543-88-2652FutacfnNvvfb aftercare (1 source)senior care (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; Translations: [LONG-TERM CURRENT USE OF ASPIRIN]Onset: 88-42-1058KmfgfjdzAdzcx aftercare (1 source)terminal gauger supervisor (current) use of oral hypoglycemic drugs; Translations: [WASTE HANDLING TECHNICIAN USE ORAL HYPOGLYCEMIC DX]Onset: 83-01-1694VwmkusfrTfgzt aftercare (1 source)Other remote computer terminal operator (current) drug therapy; Translations: [OTH WASTE HANDLING TECHNICIAN CURRENT DRUG THERAPY]Onset: 26-04-6132LqixevgdXkoan gastrointestinal disorders (20 sources)Irritable bowel syndrome with diarrhea; Translations: [Irritable bowel syndrome with diarrhea]Onset: 668677-01-0045SjqjhacOwbtj hereditary and degenerative nervous system conditions (20 sources)Restless legs; Translations: [Restless legs syndrome]Onset: 252045-64-3439SqardqaIlhde hereditary and degenerative nervous system conditions (1 source)Restless legs syndrome; Translations: [RESTLESS LEGS SYNDROME]Onset: 55-92-6944FdooyuiFotnx liver diseases (1 source)Fatty (change of) liver, not elsewhere classified; Translations: [FATTY CHANGE LIVER NEC]Onset: 09-96-9022LdxriblCthza lower respiratory disease (4 sources)Shortness of breath; Translations: [SHORTNESS OF BREATH]Onset: 55-10-8198RyahlzeuGemuo nervous system disorders (12 sources)Chronic pain; Translations: [Other chronic pain]ChronicOther nervous system disorders (12 sources)Sleep-wake schedule disorder, delayed phase type; Translations: [Circadian rhythm sleep disorder, delayed sleep phase type]ChronicOther nervous system disorders (4 sources)Other chronic painOnset: 11-10-2021 Resolved: 91-96-2340ImkyreuPoyyw nervous system disorders (1 source)Circadian rhythm sleep disorder, delayed sleep phase typeChronicOther nutritional; endocrine; and metabolic disorders (20 sources)Hypomagnesemia; Translations: [Hypomagnesemia]Onset: 04-30-2023 60-42-5725QvecoaiIhrlk nutritional; endocrine; and metabolic disorders (16 sources)Morbid obesity; Translations: [Morbid (severe) obesity due to excess calories]45-25-5594XijmvfzZflog nutritional; endocrine; and metabolic disorders (8 sources)Morbid (severe) obesity due to excess calories; Translations: [Morbid obesity]Onset: 18-30-2276AktqyrmOulye nutritional; endocrine; and metabolic disorders (1 source)Body mass index (BMI) 50.0-59.9, adult; Translations: [BODY MASS INDEX BMI 50.0-59.9 ADULT]Onset: 57-96-9335EvcvleeDswrg nutritional; endocrine; and metabolic disorders (1 source)Body mass index (BMI) 45.0-49.9, adult; Translations: [BODY MASS INDEX BMI 45.0-49.9 ADULT]Onset: 79-27-4390TfjruuzZatti nutritional; endocrine; and metabolic disorders (6 sources)Hypomagnesemia; Translations: [Disorders of magnesium metabolism] Onset: 511662-96-9727PausbrnItryc nutritional; endocrine; and metabolic disorders (20 sources)Severe obesity; Translations: [Class 3 severe obesity due to excess calories with serious comorbidity and body mass index (BMI) of 45.0 to 49.9 in adult ([facility])]Onset: 717288-47-4553SemqgtvAccnf nutritional; endocrine; and metabolic disorders (11 sources)Obesity caused by energy imbalance; Translations: [Morbid (severe) obesity due to excess calories]Onset: 103531-43-7373YfcxjfiFpphr nutritional; endocrine; and metabolic disorders (2 sources)Body mass index (BMI) 39.0-39.9, adultOnset: 961084-82-5773 ChronicOther nutritional; endocrine; and metabolic disorders (20 sources)Hyperuricemia; Translations: [Hyperuricemia without signs of inflammatory arthritis and tophaceous disease]Onset: 024784-88-3463 EpisodicOther screening for suspected conditions (not mental disorders or infectious disease) (20 sources)Encounter for screening mammogram for malignant neoplasm of breast; Translations: [Abnormal findings on diagnostic imaging of other parts of musculoskeletal system]Onset: 75-11-4280DbbcetunJruyp upper respiratory disease (20 sources)Seasonal allergy; Translations: [Other seasonal allergic rhinitis] Onset: 331747-40-8032WzisdopGmlkrini codes; unclassified (12 sources)Sleep apnea; Translations: [Sleep apnea, unspecified]ChronicResidual codes; unclassified (20 sources)Obstructive sleep apnea syndrome; Translations: [Obstructive sleep apnea (adult) (pediatric)]Onset: 053717-67-2441ZlmlmupYhjlkhmc codes; unclassified (2 sources)Obstructive sleep apnea (adult) (pediatric); Translations: [OBSTRUCTIVE SLEEP APNEA]Onset: 47-14-6123EfvrbifTevmxnoa codes; unclassified (9 sources)Localized edema; Translations: [Localized edema]15-46-6815Pfaawxhw Spondylosis; intervertebral disc disorders; other back problems (20 sources)Intervertebral disc prolapse; Translations: [Other intervertebral disc displacement, thoracolumbar region]Onset: 09-29-2021 Resolved: 44-48-0488ZxycwijRzjanlychjd; intervertebral disc disorders; other back problems (20 sources)Radiculopathy, lumbar region; Translations: [Chronic low back pain] Onset: 08-30-2021 Resolved: 52-22-8677CmzpxjtoWyfepxc (2 sources)Syncope and collapse; Translations: [Syncope and collapse]Onset: 41-31-5434KosortrzHlxccrgbzeeq (1 source)CHRN KIDNEY DISEASE STG 3 UNSP; Translations: [CHRN KIDNEY DISEASE STG 3 UNSP]Onset: 37-37-3597Xjttveyybwki (1 source)LOW BACK PAIN, UNSPECIFIED; Translations: [LOW BACK PAIN, UNSPECIFIED] Onset: 32-43-3347Qbsktldkfgbe (3 sources)CONTACT W/AND (SUSP) EXPOS COVID-19; Translations: [CONTACT W/AND (SUSP) EXPOS COVID-19]Onset: 12-25-2021 Past or Other Problems Problem ClassificationProblemDateDocumented DateEpisodic/ChronicAbdominal hernia (20 sources)Ventral hernia without obstruction or gangrene; Translations: [Disorder of abdominal wall]Onset: 265754-95-3976MlimaubbPfhrxcpwv pain (20 sources)Unspecified abdominal pain; Translations: [Left lower quadrant pain] Onset: 02-21-2022 Resolved: 51-79-6917QvlhinuvFyexfrmt of urinary tract (20 sources)Kidney stone; Translations: [Calculus of kidney]Onset: 07-02-2023 96-56-0003LjcvsikjAhgglni dysrhythmias (20 sources)Bradycardia; Translations: [Bradycardia, unspecified]Onset: 021833-29-5795IxzvyhptYfejomjxoy and other anemia (4 sources)Anemia, unspecified; Translations: [ANEMIA UNSPECIFIED]Onset: 11-36-6907CjulgimeEuazyhfcfokkb symptoms and ill-defined conditions (20 sources)Delay when starting to pass urine; Translations: [Hesitancy of micturition]Onset: 646724-38-0923AvinejvvAbanbcxj; including migraine (1 source)Headache; including migraineIntestinal infection (20 sources)Enterocolitis due to Clostridium difficile, not specified as recurrent; Translations: [Clostridium difficile diarrhea]Onset: 12-25-2021 Resolved: 813807-73-3600IqncxxczGhik disorders (20 sources)Mood disordersOnset: 765442-49-8989Wcalfox (20 sources)Opportunistic mycosis; Translations: [Candidiasis, unspecified] Onset: 10-03-2023 Resolved: 964390-08-2610LutyhomoJhnpuisqvsj deficiencies (20 sources)Cobalamin deficiency; Translations: [Deficiency of other specified B group vitamins]Onset: 898592-14-9777GjjgpfolGigp wounds of head; neck; and trunk (4 sources)Unspecified open wound of unspecified part of neck, initial encounter; Translations: [UNS OPEN WOUND UNS PART NECK INIT]Onset: 01-12-2022 EpisodicOther and unspecified benign neoplasm (20 sources)History of polyp of colon; Translations: [History of colon polyps] Onset: 817273-92-3424SsuzqtclUmjut and unspecified benign neoplasm (20 sources)Polyp of cecum; Translations: [Benign neoplasm of cecum]Onset: 474424-87-8828IacrittvNvpgr connective tissue disease (1 source)Pain in right leg; Translations: [PAIN IN RIGHT LEG]Onset: 05-31-2022 EpisodicOther connective tissue disease (1 source)Arthrodesis status; Translations: [ARTHRODESIS STATUS]Onset: 34-02-1233DvhfimznSpysd connective tissue disease (1 source)Myalgia, unspecified site; Translations: [MYALGIA UNSPECIFIED SITE] Onset: 22-97-1128TamsbwcyLzljr connective tissue disease (20 sources)Swelling of bilateral lower limbs; Translations: [Other specified soft tissue disorders]Onset: 04-30-2023 Resolved: 113733-72-1062TxzwbqosJzpej connective tissue disease (20 sources)Bilateral heel pain; Translations: [Pain in right foot]Onset: 754522-02-7006MifvbaybPflmj connective tissue disease (20 sources)Spasm; Translations: [Other muscle spasm]Onset: 800185-00-4457 EpisodicOther connective tissue disease (20 sources)Foot pain; Translations: [Pain in left foot]Onset: 07-15-2024 43-31-3543DmeswaxoHfgap gastrointestinal disorders (4 sources)Diarrhea, unspecified; Translations: [DIARRHEA UNSPECIFIED]Onset: 33-29-7441LewwuymgWjyze gastrointestinal disorders (20 sources)History of bariatric surgical procedure; Translations: [Bariatric surgery status]Onset: 299713-49-6820EokajmwvDcwar liver diseases (20 sources)Elevated liver enzymes level; Translations: [Abnormal levels of other serum enzymes]Onset: 973627-29-1610BdfwtkkhCfzuf lower respiratory disease (1 source)Dyspnea, unspecified; Translations: [DYSPNEA UNSPECIFIED]Onset: 11-93-2002NlrduemxGylga lower respiratory disease (20 sources)Dyspnea; Translations: [Dyspnea, unspecified]Onset: 07-02-2023 16-60-2161GdixvxlxPqizu non-traumatic joint disorders (20 sources)Acute ankle pain; Translations: [Pain in left ankle and joints of left foot]Onset: 113136-95-2853UzevjpzhVpose nutritional; endocrine; and metabolic disorders (20 sources)Body mass index 40+ - severely obese; Translations: [Body mass index (BMI) 50.0-59.9, adult]Onset: 05-03-2023 Resolved: 93-87-515502245725-89-5066WhnpyzbIyyxg nutritional; endocrine; and metabolic disorders (6 sources)Hyperuricemia without signs of inflammatory arthritis and tophaceous disease; Translations: [Other abnormal blood chemistry]Onset: 03-11-2024 03-01-8896YoceryprQumam upper respiratory infections (20 sources)Acute pansinusitis; Translations: [Acute pansinusitis, unspecified] Onset: 03-06-2024 Resolved: 596476-52-6150UighevgqYtsuorwt codes; unclassified (8 sources)Localized edema; Translations: [Edema]Onset: 31-51-3922Amaihhsx Residual codes; unclassified (1 source)Family history of malignant neoplasm of other organs or systems; Translations: [FAM HX MALIG NEOPLASM OTH ORGN/SYS]Onset: 00-66-6405Acxbkala Residual codes; unclassified (1 source)Acquired absence of both cervix and uterus; Translations: [ACQUIRED ABSENCE BOTH CERVIX AND UTERUS]Onset: 96-29-2469DqyeotklVczyvlct codes; unclassified (1 source)Acquired absence of ovaries, bilateral; Translations: [ACQUIRED ABSENCE OVARIES BILATERAL]Onset: 60-96-4275MbrstmbxPhmhkbhv codes; unclassified (4 sources)Procedure and treatment not carried out due to patient leaving prior to being seen by health care provider; Translations: [PROC AND TX NOT CARRIED OUT PT LEAVE]Onset: 03-46-6118QaosymnbKhyspfel codes; unclassified (20 sources)Edema of lower extremity; Translations: [Localized edema]Onset: 188138-83-4429MyehjovaOqubdfhk codes; unclassified (20 sources)Insomnia; Translations: [Insomnia, unspecified]Onset: 07-02-2023 01-49-6216VqzjixmrOnpodtgz codes; unclassified (20 sources)H/O: urinary disease; Translations: [Personal history of other specified conditions]Onset: 07-02-2023 Resolved: 134624-01-8094FiwxrerkIejlagomuxnh (1 source)CONTACT W/AND (SUSP) EXPOS COVID-19; Translations: [CONTACT W/AND (SUSP) EXPOS COVID-19]Onset: 52-55-1109Gxgaiamqecur (1 source)Periodic exam (chief complaint)Onset: 32-86-2557Ygiucepemncu (1 source)Endo (chief complaint)Onset: 75-52-5647Domgghu tract infections (20 sources)Escherichia coli urinary tract infection; Translations: [Urinary tract infection, site not specified]Onset: 07-05-2023 Resolved: 122269-50-4454Shwmwgwm Results Test NameValueInterpretationReference RangeFacilityANESon 56-85-4609EOKR Attestation signed by Tk Godoy MD at 12/12/2024 8:20 AM Tk Godoy MD, MPH, [facility], [facility], [facility] Interventional Cardiology Pager Email: [email or web address] Patient: Sherly Patel [place] Procedure Information Date/Time: 12/12/24829 Procedure: Coronary angiography (Left) - PC APPROVED 11/26-12/25 Location: [facility] SAFETY ENGINEER 3 / [facility] (Cath) Providers: Tk Godoy [...] attending. Additional Equipment Requests Austin Earl MD Organizational Development Consultant, PGY-4 [facility] 12/12/24 8:07 [facility] Clinic FoundationHPon [id number] Attestation signed by Tk Godoy MD at [...] me. Additional Comments: Tk Godoy MD, MPH, [facility], [facility], [facility] Interventional Cardiology Pager Email: [email or web address] History Of Present Illness Sherly Humphreys is [...] Resource Strain: High Risk (11/18/2024) Received from [facility] Overall Financial Resource Strain (CARDIA) Difficulty of Paying Living Expenses: Hard Food Insecurity: Food Insecurity Present (11/18/2024) Received from [facility] Hunger Vital Sign Worried About Running Out of Food in the Last Year: Often true Ran Out of Food in the Last Year: Often true Transportation Needs: No Transportation Needs (11/18/2024) Received from [facility] PRAPARE - Transportation Lack of Transportation (Medical): No Lack of Transportation (Non-Medical): No Physical Activity: Inactive (11/18/2024) Received from [facility] Exercise Vital Sign Days of Exercise per Week: 0 days Minutes of Exercise per Session: 0 min Stress: Stress Concern Present (11/18/2024) Received from [facility] [employer] Occupational Health - Occupational Stress Questionnaire Feeling of Stress : To some extent Social Connections: Socially Isolated (11/18/2024) Received from [facility] Social Connection and Isolation Panel [NHANES] Frequency of Communication with Friends and Family: More than three times a week Frequency of Social Gatherings with Friends and Family: Once a week Attends Temple Services: Never Active Member of Clubs or Organizations: No Attends Club or Organization Meetings: Never Marital Status: Never Intimate Partner Violence: Not At Risk (11/18/2024) Received from [facility] Humiliation, Afraid, Rape, and Kick questionnaire Fear of Current or Ex-Partner: No Emotionally Abused: No Physically Abused: No Sexually Abused: No Housing Stability: Low Risk (11/18/2024) Received from [facility] Housing Stability Vital Sign Unable to Pay [...] Breath sounds: Normal breath (more content not included)...[facility] HospitalNURSNOTEon 14-06-2327IFRQJNLABP educated pt on d/c instructions. This included: site care, limited physical [...] wheeled off of unit with all of belongings.[facility] HospitalOrders Onlyon 08-87-7296Clqzqo [id number] Sherly Humphreys 1970 F Date Provider Department [place] 12/10/2024 [id number], HISTORICAL CARD [facility] Family History Problem Relation Age of Onset Cancer Mother Heart attack Father Family Status - Relation Status Age at Mother Father DeceasedNormalUniversity [facility] HospitalALL CBC WITH AUTO DIFFon 44-80-5358QFFNQBSJC ABSOLUTE AUTO0.1NOMS HealthcareBasophils/100 WBC (Bld)1 % 0.2 - 2.0 %[facility] HealthcareEosinophils/100 WBC (Bld)3.1 %0.9 - 7.0 %[facility] NorthErythrocyte distribution width (RBC) [Ratio]13.1 %11.0 - 15.0 %NOMHannibal Regional HospitalHematocrit (Bld) [Volume fraction]37 %36.0 - 48.0 %[facility] Hemoglobin (Bld) [Mass/Vol]11.9 g/dLLow12.0 - 16.0 g/dLCox NorthIMMATURE GRANULOCYTES ABS AUTO0.01NOMercy McCune-Brooks HospitalImmature granulocytes/100 WBC (Bld)0.2 % 0.0 - 0.5 %[facility] HealthcareInterpretation and review of laboratory results AbnormalNOMercy McCune-Brooks HospitalLYMPHOCYTES ABSOLUTE AUTO1.4NOMercy [facility] Lymphocytes/100 WBC (Bld)24.4 %20.5 - 60.0 %[facility] CenterH (RBC) [Entitic mass]29.8 pg26.7 - 34.0 pgWestern Missouri Medical CenterHC (RBC) [Mass/Vol]32.2 g/dL29.9 - 35.2 g/dLWestern Missouri Medical CenterV (RBC) [Entitic vol]92.7 fL81.0 - 99.0 fLCox NorthMONOCYTES ABSOLUTE AUTO0.3NOMercy McCune-Brooks HospitalMonocytes/100 WBC (Bld)5.2 % 1.7 - 12.0 %[facility] NorthNEUTROPHILS ABSOLUTE AUTO3.8NOMS [facility] Neutrophils/100 WBC (Bld)66.1 %43.0 - 75.0 %[facility]ox NorthPlatelet mean volume (Bld) [Entitic vol]10.8 fL9.5 - 13.5 fLNortheast Missouri Rural Health Network EO #0.2NOMS Healthcare [facility] [id number] [facility] RBC3.99LowNOMS [facility] WBC5.8NOMercy [facility] CLINISYNCCox North36on 68-58-396211Jgplicimj stress test result from 11/13/2024: Tk Godoy MD to Me (Selected Message) EE 11/18/24 4:19 AM Please let her know her stress test is abnormal and I would recommend cardiac cath: CORS via L radial approach. Thanks Spoke with Sherly and made her aware. Lab orders faxed to [facility]. She verbalized understanding.NormalWilson Memorial HospitalAlbumin [Mass/volume] in Serum or Plasma by Bromocresol green (BCG) dye binding methoOrdered By: Halle Mac on 85-93-3727Ishrkak BCG dye [Mass/Vol]4.1 g/dL3.5-5.7FSelect Medical Specialty Hospital - ColumbusAppearance of UrineOrdered By: Halle Mac on 11-18-2024 Appearance (U)ClearNormalClearCleveland Clinic FoundationComment on above: Order Comment: Name Collection Type:: Clean-Voided MidstreamPerformed By: #### [id number], EHEX21AM, PROCRERAT, FE and TIBC, URIC, URMACRERAT, UA, MG, PTH, RENAL, CBCNO, GEENA #### [facility] [address] [place] [address] USABacteria [Presence] in Urine by AutomatedOrdered By: Halle Mac on 77-36-3403Emgaqhbe Auto Ql (U)None seen [HPF]None SeenCleveland Clinic FoundationBilirubin Test strip Ql (U)Ordered By: Halle Mac on 70-90-7567Tnstzeiih Ql (U)1+HighNegativeCleveland Clinic FoundationCalcium [Mass/volume] in Serum or PlasmaOrdered By: Halle Mac on 52-75-6678Aenugnr [Mass/Vol]9.6 mg/dLNormal8.6-10.3FSelect Medical Specialty Hospital - ColumbusComment on above:Performed By: #### [id number], FYKF77XL, PROCRERAT, FE and TIBC, URIC, URMACRERAT, UA, MG, PTH, RENAL, CBCNO, GEENA #### [facility] [address] [place] [address] USACarbon dioxide, total [Moles/volume] in Serum or Plasma Ordered By: Halle Mac on 11-98-4765AF2 [Moles/Vol]28.3 mmol/WUopeow47.0-31.0 [facility] FoundationComment on above:Performed By: #### DEGS31MII, UHQH64SZ, PROCRERAT, FE and TIBC, URIC, URMACRERAT, UA, MG, PTH, RENAL, CBCNO, GEENA #### [facility] [address] [place] [address] USAChloride [Moles/volume] in Serum or PlasmaOrdered By: Halle Mac on 30-16-0711Gfmvorfc [Moles/Vol]111 mmol/XMbks61-796OhxfnpuyyCleveland Clinic FoundationComment on above:Performed By: #### [id number], NBEJ90RE, PROCRERAT, FE and TIBC, URIC, URMACRERAT, UA, MG, PTH, RENAL, CBCNO, GEENA #### [facility] [address] [place] [address] USAColor of Urine by AutoOrdered By: Halle Mac on 51-61-1003Tttbh (U)YellowNormalYellowCleveland Clinic FoundationComment on above:Order Comment: Name Collection Type:: Clean-Voided MidstreamPerformed By: #### [id number], LZZU13WL, PROCRERAT, FE and TIBC, URIC, URMACRERAT, UA, MG, PTH, RENAL, CBCNO, GEENA #### [facility] [address] [place] [address] USACreatinine [Mass/volume] in Serum or PlasmaOrdered By: Halle Mac on 47-84-0816Drvhwnonov [Mass/Vol]1.38 mg/dLHigh0.60-1.20C[facility] Clinic FoundationComment on above:Performed By: #### TJUC96VXV, SBWS09RJ, PROCRERAT, FE and TIBC, URIC, URMACRERAT, UA, MG, PTH, RENAL, CBCNO, GEENA #### [facility] [address] [place] [address] USACreatinine [Mass/volume] in UrineOrdered By: Halle Mac on 13-99-9570Lpnkvweohd (U) [Mass/Vol]270.00 mg/dLCleveland Clinic FoundationComment on above:No reference range establishedDipstick and Microscopicon 11-93-6968Jyipkimf,UrineNone SeenNormalNone SeenAdventhealth Altamonte Springs Physician Group Comment on above:Order Comment: Name Collection Type:: Clean-Voided Midstream Performed By: #### THSR81IOW, XPKQ45VK, PROCRERAT, FE and TIBC, URIC, URMACRERAT, UA, MG, PTH, RENAL, CBCNO, GEENA #### [place] [address] USABilirubin,Urine1+NormalNegativeThe [facility] Physician GroupComment on above:Order Comment: Name Collection Type:: Clean-Voided MidstreamPerformed By: #### [id number], IVMQ77AU, PROCRERAT, FE and TIBC, URIC, URMACRERAT, UA, MG, PTH, RENAL, CBCNO, GEENA #### [place] [address] USAGlucose Ql (U)NormalNormalNormalThe [facility] Physician GroupComment on above:Order Comment: Name Collection Type:: Clean-Voided MidstreamPerformed By: #### ZHGC56EXK, CVXT74EM, PROCRERAT, FE and TIBC, URIC, URMACRERAT, UA, MG, PTH, RENAL, CBCNO, GEENA #### [place] [address] USAHyaline Casts,Siytf1-07Wvmuff0-6Xgs [facility] Physician GroupComment on above:Order Comment: Name Collection Type:: Clean-Voided MidstreamPerformed By: #### QOJO82WJU, WMLC95ZT, PROCRERAT, FE and TIBC, URIC, URMACRERAT, UA, MG, PTH, RENAL, CBCNO, GEENA #### [place] [address] USAMucus,UrineRareNormalAdventhealth Altamonte Springs Physician GroupComment on above:Order Comment: Name Collection Type:: Clean-Voided MidstreamResult Comment: PERFORMED BY: [place] [address] PATHOLOGIST STEAM ENGINEER KRISHAN PAEZ M.D.Performed By: #### TFSO07YNS, FIZR77II, PROCRERAT, FE and TIBC, URIC, URMACRERAT, UA, MG, PTH, RENAL, CBCNO, GEENA #### [place] [address] USANitrite,UrineNegativeNormalNegativeAdventhealth Altamon[facility] Springs Physician GroupComment on above:Order Comment: Name Collection Type:: Clean-Voided MidstreamPerformed By: #### UVLT17WZI, BDYD84NX, PROCRERAT, FE and TIBC, URIC, URMACRERAT, UA, MG, PTH, RENAL, CBCNO, GEENA #### [place] [address] USAOccult Blood,UrineNegativeNormalNegativeAdventhealth Altamon[facility] Springs Physician GroupComment on above:Order Comment: Name Collection Type:: Clean- Voided MidstreamResult Comment: PERFORMED BY: [place] [address] PATHOLOGIST STEAM ENGINEER KRISHAN PAEZ M.D.Performed By: #### XXPH96BUL, YJWJ98YB, PROCRERAT, FE and TIBC, URIC, URMACRERAT, UA, MG, PTH, RENAL, CBCNO, GEENA #### [place] [address] USAProtein,UrineTraceNormalNegativeAdventhealth Altamonte Springs Physician GroupComment on above:Order Comment: Name Collection Type:: Clean-Voided MidstreamPerformed By: #### YRUP54UBT, IXAU35EW, PROCRERAT, FE and TIBC, URIC, URMACRERAT, UA, MG, PTH, RENAL, CBCNO, GEENA #### [place] [address] USARBC,Ospfw8-0Dznfda8-0Hcu [facility] Physician GroupComment on above:Order Comment: Name Collection Type:: Clean-Voided MidstreamPerformed By: #### [id number], LCOH68GG, PROCRERAT, FE and TIBC, URIC, URMACRERAT, UA, MG, PTH, RENAL, CBCNO, GEENA #### [place] [address] USASpecificy Fluker,Urine1.436Ehqb7.001-1.030The [facility] Physician GroupComment on above:Order Comment: Name Collection Type:: Clean- Voided MidstreamPerformed By: #### [id number], UUXN78NK, PROCRERAT, FE and TIBC, URIC, URMACRERAT, UA, MG, PTH, RENAL, CBCNO, GEENA #### [place] [address] USASquamous Epithelial Cell,Dtett1-3Dnicdf3-8Nat [facility] Physician GroupComment on above:Order Comment: Name Collection Type:: Clean- Voided MidstreamPerformed By: #### SIYL06KMN, BXMT13EM, PROCRERAT, FE and TIBC, URIC, URMACRERAT, UA, MG, PTH, RENAL, CBCNO, GEENA #### [place] [address] USAUrobilinogen,Urine2 mg/dLNormalNormalThe [facility] Physician GroupComment on above:Order Comment: Name Collection Type:: Clean- Voided MidstreamPerformed By: #### [id number], [id number], PROCRERAT, FE and TIBC, URIC, URMACRERAT, UA, MG, PTH, RENAL, CBCNO, GEENA #### [place] [address] USAWBC,Dmawm2-4Lbqoyr2-1Koy [facility] Physician GroupComment on above:Order Comment: Name Collection Type:: Clean-Voided MidstreamPerformed By: #### [id number], NPOK77DZ, PROCRERAT, FE and TIBC, URIC, URMACRERAT, UA, MG, PTH, RENAL, CBCNO, GEENA #### [place] [address] USAEpithelial cells.squamous [#/area] in Urine sediment by Automated countOrdered By: Halle Mac on 11-53-4170Ubbvphveys cells.squamous Auto (Urine sed) [#/Area]1-2 [HPF]0-2FSelect Medical Specialty Hospital - Columbus Erythrocyte distribution width [Ratio] by Automated countOrdered By: Halle Mac on 53-04-8496Ohnuzmmjyik distribution width (RBC) [Ratio]13.9 %Normal 11.9-15.3FSelect Medical Specialty Hospital - ColumbusComment on above:Performed By: #### XPDY06TOU, KPRF61GZ, PROCRERAT, FE and TIBC, URIC, URMACRERAT, UA, MG, PTH, RENAL, CBCNO, GEENA #### [facility] [address] [place] [address] USAErythrocytes [#/area] in Urine sediment by Automated count Ordered By: Halle Mac on 88-74-8639OYS Auto (Urine sed) [#/Area]1-2 [HPF]0-4 [facility] Clinic FoundationErythrocytes [#/volume] in Blood by Automated countOrdered By: Halle Mac on 36-52-3341XME (Bld) [#/Vol]3.67 10*6/uLNormal 3.60-5.00C[facility] Clinic FoundationComment on above:Performed By: #### PGKD20KUQ, SSDA88RS, PROCRERAT, FE and TIBC, URIC, URMACRERAT, UA, MG, PTH, RENAL, CBCNO, GEENA #### [facility] [address] [place] [address] USAFerritin [Mass/volume] in Serum or PlasmaOrdered By: Halle Mac on 16-69-8271Wvjbnlil [Mass/Vol]235.3 ng/vXRqfolp34.0-306.8C[facility] Clinic FoundationComment on above:Performed By: #### YCZC82XEU, ETPN87GZ, PROCRERAT, FE and TIBC, URIC, URMACRERAT, UA, MG, PTH, RENAL, CBCNO, GEENA #### [facility] [address] [place] [address] USAFolate [Mass/volume] in Serum or PlasmaOrdered By: Halle Mac on 32-79-7996Pienem [Mass/Vol]9.8 ng/mL>5.9C[facility] Clinic FoundationComment on above:Folate reference range: >5.9 ng/mlThe WHO technical consultation on folate and vitamin e88kbcupwwoabqz has determined that folate concentrations lessthan 4 ng/ml are considered deficient.Glucose [Mass/volume] in Serum or PlasmaOrdered By: Halle Mac on 42-76-0264Dtbhins [Mass/Vol]88 mg/bUBwkyha17-372HuajviqbvCleveland Clinic FoundationComment on above:ADA recommended reference rangeRandom Glucose Reference Range is dependent on time and content of last meal. Glucose of more than 200 mg/dL in a nonstressed, ambulatory subject supports the diagnosisof Diabetes Mellitus.Result Comment: Random Glucose Reference Range is dependent on time and content of last meal. Glucose of more than 200 mg/dL in a nonstressed, ambulatory subject supports the diagnosis of Diabetes Mellitus. ADA recommended reference rangePerformed By: #### GMDL89FLR, YPFW19MS, PROCRERAT, FE and TIBC, URIC, URMACRERAT, UA, MG, PTH, RENAL, CBCNO, GEENA #### [facility] [address] [place] [address] USAGlucose [Mass/volume] in Urine by Test stripOrdered By: Halle Mac on 58-33-4269Ztfkede Test strip (U) [Mass/Vol]Normal mg/dLNoMcCullough-Hyde Memorial HospitalHematocrit [Volume Fraction] of Blood by Automated countOrdered By: Halle Mac on 08-21-3378Jrnuglgglm (Bld) [Volume fraction]33.1 %Low34.0-46.4FSelect Medical Specialty Hospital - ColumbusComment on above: Performed By: #### DRMQ89RDX, ZZZC89GF, PROCRERAT, FE and TIBC, URIC, URMACRERAT, UA, MG, PTH, RENAL, CBCNO, GEENA #### [facility] [address] [place] [address] USAHemoglobin Test strip Ql (U)Ordered By: Halle Mac on 06-78-2474Ivzpedykdk Ql (U)NegativeNegativeCleveland Clinic Foundation Hemoglobin [Mass/volume] in BloodOrdered By: Halle Mac on 11-18-2024 Hemoglobin (Bld) [Mass/Vol]10.8 g/dLLow11.8-15.4FSelect Medical Specialty Hospital - ColumbusComment on above:Performed By: #### IQJC29TIS, SCOW44GE, PROCRERAT, FE and TIBC, URIC, URMACRERAT, UA, MG, PTH, RENAL, CBCNO, GEENA #### [facility] [address] [place] [address] USAHemogram CBC Without Diffon 67-99-1849Uafu Corpuscular HGB Conc32.7 g/fBDmjrgr14.0-35.0The [facility] Physician GroupComment on above: Performed By: #### JRJN91LWT, BVBJ65EJ, PROCRERAT, FE and TIBC, URIC, URMACRERAT, UA, MG, PTH, RENAL, CBCNO, GEENA #### [facility] [address] [place] [id number] USAWhite Blood Count9.7 [CFU]/mLNormal3.8-11.6The [facility] Physician Laird HospitalComment on above:Performed By: #### AHUL18LSC, GBTO24ZK, PROCRERAT, FE and TIBC, URIC, URMACRERAT, UA, MG, PTH, RENAL, CBCNO, GEENA #### [facility] [address] [place] [address] USAHyaline casts [#/area] in Urine sediment by Automated countOrdered By: Halle Mac on 74-50-5862Ntxaxts casts Auto (Urine sed) [#/Area]9-19 [LPF]High0-8C[facility] Clinic FoundationIron [Mass/volume] in Serum or PlasmaOrdered By: Halle Mac on 35-19-8251Awzg [Mass/Vol]64 ug/dL Jptfos40-637ZemxcvownCleveland Clinic FoundationComment on above:Performed By: #### EHYE48SHF, EPVG75KC, PROCRERAT, FE and TIBC, URIC, URMACRERAT, UA, MG, PTH, RENAL, CBCNO, GEENA #### [facility] [address] [place] [address] USAIron and TIBC Profileon 11-18-2024% Iron Pcxmpkmqfu62.4 % Eho32-42Eaq [facility] Physician GroupComment on above:Performed By: #### YDBC22VAX, PQGL77GQ, PROCRERAT, FE and TIBC, URIC, URMACRERAT, UA, MG, PTH, RENAL, CBCNO, GEENA #### [facility] [address] [place] [address] USATotal Iron Binding Pkbwkavo496 ug/oZNxonmc791-695Way [facility] Physician GroupComment on above:Performed By: #### OVQJ09QWV, DLTI51WN, PROCRERAT, FE and TIBC, URIC, URMACRERAT, UA, MG, PTH, RENAL, CBCNO, GEENA #### [facility] [address] [place] [address] USAKetones [Presence] in Urine by Test stripOrdered By: Halle Mac on 36-82-3163Jukavrh Ql (U)NegativeNormalNegMarietta Osteopathic ClinicComment on above:Order Comment: Name Collection Type:: Clean- Voided MidstreamPerformed By: #### UPDI70MRW, HLKA69FL, PROCRERAT, FE and TIBC, URIC, URMACRERAT, UA, MG, PTH, RENAL, CBCNO, GEENA #### [place] [address] USALeukocyte esterase [Presence] in Urine by Test strip Ordered By: Halle Mac on 68-30-6639Ophcxfcdv esterase Test strip Ql (U)3+ NormalNegMarietta Osteopathic ClinicComment on above:Order Comment: Name Collection Type:: Clean-Voided MidstreamPerformed By: #### IBYA21IMM, PZKI44WN, PROCRERAT, FE and TIBC, URIC, URMACRERAT, UA, MG, PTH, RENAL, CBCNO, GEENA #### [place] [id number] USALeukocytes [#/area] in Urine sediment by Automated count Ordered By: Halle Mac on 25-82-7169ROG Auto (Urine sed) [#/Area]1-2 [HPF]0-4 [facility] Clinic FoundationLeukocytes [#/volume] corrected for nucleated erythrocytes in Blood by Automated counOrdered By: Halle Mac on 07-08-5411DCG corrected for nucl RBC Auto (Bld) [#/Vol]9.7 10*3/uL3.8-11.6FGreen Cross Hospital [Entitic mass] by Automated countOrdered By: Halle Mac on 08-09-0863XHQ (RBC) [Entitic mass]29.5 htXefovc55.7-34.3FSelect Medical Specialty Hospital - ColumbusComment on above:Performed By: #### ZMUG99ALP, ZGMF88JN, PROCRERAT, FE and TIBC, URIC, URMACRERAT, UA, MG, PTH, RENAL, CBCNO, GEENA #### [facility] [address] [place] [address] [facility] Auto (RBC) [Mass/Vol]Ordered By: Halle Mac on 58-45-9811IQET (RBC) [Mass/Vol]32.7 g/dL32.0-35.0C[facility] Clinic FoundationMCV [Entitic volume] by Automated countOrdered By: Halle Mac on 62-09-5612YFR (RBC) [Entitic vol]90.3 mZMivzac75-053FdfyfxabcCleveland Clinic FoundationComment on above:Performed By: #### ICYZ03YTF, TWIF38MG, PROCRERAT, FE and TIBC, URIC, URMACRERAT, UA, MG, PTH, RENAL, CBCNO, GEENA #### [facility] [address] [place] [address] USAMagnesium [Mass/volume] in Serum or PlasmaOrdered By: Halle Mac on 08-46-0133Kuvykujzf [Mass/Vol]2.1 mg/dLNormal1.9-2.7FSelect Medical Specialty Hospital - ColumbusComment on above:Performed By: #### KBZG90OXD, ZIJH00XS, PROCRERAT, FE and TIBC, URIC, URMACRERAT, UA, MG, PTH, RENAL, CBCNO, GEENA #### [facility] [address] [place] [address] USAMicroAlb Creat Ratio,Uon 61-14-0189Xitpyvagig, Urine (Random)270.00 mg/dLNormalThe [facility] Hospital Physician GroupComment on above:Result Comment: No reference range establishedPerformed By: #### GKLP70SCF, TGUW67EM, PROCRERAT, FE and TIBC, URIC, URMACRERAT, UA, MG, PTH, RENAL, CBCNO, GEENA #### [facility] [address] [place] [address] USAMicroalbumin/Creatinine Ratio8.1 mg/gNormal0.0-30.0The [facility] Bertie Hospital Physician GroupComment on above:Result Comment: 30-300 mg/g indicates an increased risk for diabetic nephropathy. Greater than 300 mg/g is consistent with clinical nephropathy. (Am. J. Kidney Disease 1995, 25:107)Performed By: #### TEQF02BSQ, TNNQ43KM, PROCRERAT, FE and TIBC, URIC, URMACRERAT, UA, MG, PTH, RENAL, CBCNO, GEENA #### [facility] [address] [place] [address] USAMicroalbumin [Mass/volume] in UrineOrdered By: Halle Mac on 88-05-6903Duashsl DL <= 20 mg/L (U) [Mass/Vol]2.2 mg/dLHigh0.0-1.8 [facility] FoundationComment on above:Performed By: #### WJUJ50RAC, ZWTF77TC, PROCRERAT, FE and TIBC, URIC, URMACRERAT, UA, MG, PTH, RENAL, CBCNO, GEENA #### [facility] [address] [place] [address] USAMucus [Presence] in Urine by AutomatedOrdered By: Halle Mac on 55-75-5546Toagg Auto Ql (U)Rare [LPF][facility] Clinic FoundationNitrite Test strip Ql (U)Ordered By: Halle Mac on 46-49-9453Dvbmqaw Ql (U)NegativeNegativeCleveland Clinic FoundationNo Panel InformationOrdered By: Halle Mac on 77-84-7786Lcbucgrcl GFR (CKD-EPI)45.770 mL/MinCleveland Clinic FoundationPharmacy Creatinine Clearance (ChemN/AFSelect Medical Specialty Hospital - ColumbusParathyrin.intact [Mass/volume] in Serum or PlasmaOrdered By: Halle Mac on 52-90-7003Dfqoxjwaax.intact [Mass/Vol]25.6 pg/iL43-91CrcgeafndCleveland Clinic FoundationParathyroid Hormone Intacton 55-92-4194Wcudtbepile Hormone Vvykde07.6 pg/pFFqqwcy62-47Ihs [facility] Hospital Physician GroupComment on above:Result Comment: PERFORMED BY: [facility] [address] [place] [address] PATHOLOGIST STEAM ENGINEER KRISHAN PAEZ M.D.Performed By: #### HBMO01QEL, ZEJZ19OK, PROCRERAT, FE and TIBC, URIC, URMACRERAT, UA, MG, PTH, RENAL, CBCNO, GEENA #### [facility] [address] [place] [address] USAPhosphate [Mass/volume] in Serum or PlasmaOrdered By: Halle Mac on 94-47-3946Wqahktkhh [Mass/Vol]3.5 mg/dLNormal2.5-4.5FSelect Medical Specialty Hospital - ColumbusComment on above:Performed By: #### KFXA58WYU, WDQD53II, PROCRERAT, FE and TIBC, URIC, URMACRERAT, UA, MG, PTH, RENAL, CBCNO, GEENA #### [facility] [address] [place] [address] USAPlatelet mean volume [Entitic volume] in Blood by Automated countOrdered By: Halle Mac on 80-29-2737Sxdrsuud mean volume (Bld) [Entitic vol]9.4 fLNormal6.3-10.7FSelect Medical Specialty Hospital - ColumbusComment on above:Result Comment: PERFORMED BY: [facility] [place] [id number] PATHOLOGIST STEAM ENGINEER KRISHAN PAEZ M.D.Performed By: #### OMPR16IMP, TWHV78RP, PROCRERAT, FE and TIBC, URIC, URMACRERAT, UA, MG, PTH, RENAL, CBCNO, GEENA #### [place] [address] USAPlatelets [#/volume] in Blood by Automated countOrdered By: Halle Mac on 92-26-1195Mpfbidutj (Bld) [#/Vol]258 10*3/tXUxepws675-455 [facility] FoundationComment on above:Performed By: #### JMUQ17DSB, EYLM90DV, PROCRERAT, FE and TIBC, URIC, URMACRERAT, UA, MG, PTH, RENAL, CBCNO, GEENA #### [place] [address] USAPotassium [Moles/volume] in Serum or PlasmaOrdered By: Halle Mac on 16-80-6512Mbbzqigdj [Moles/Vol]4.6 mmol/LNormal3.5-5.1FSelect Medical Specialty Hospital - ColumbusComment on above:Performed By: #### SOBX07OAM, RNPU47VL, PROCRERAT, FE and TIBC, URIC, URMACRERAT, UA, MG, PTH, RENAL, CBCNO, GEENA #### [place] [address] USAProtein Creat Ratio Ur Randomon 59-34-5779Pchtu Protein/Creatinine Ratio85 mg/g{Cre}Normal0-200The [facility] Comment on above:Result Comment: PERFORMED BY: [place] [address] PATHOLOGIST STEAM ENGINEER KRISHAN PAEZ M.D.Performed By: #### TDSQ48GQG, KOOT05LP, PROCRERAT, FE and TIBC, URIC, URMACRERAT, UA, MG, PTH, RENAL, CBCNO, GEENA #### [place] [address] USAProtein Test strip (U) [Mass/Vol]Ordered By: Halle Mac on 75-23-0170Fmhvmhk (U) [Mass/Vol]Trace mg/dLHighNegativeCleveland Clinic FoundationProtein [Mass/volume] in UrineOrdered By: Halle Mac on 72-35-8740Fcvezuq (U) [Mass/Vol]23 mg/dLHigh0-9[facility] Comment on above:Performed By: #### UCPO68NYP, ETMN97WH, PROCRERAT, FE and TIBC, URIC, URMACRERAT, UA, MG, PTH, RENAL, CBCNO, GEENA #### [facility] [address] [place] [address] USARenal Function Panelon 91-20-1495Dwzamxc [Mass/Vol]4.1 g/dLNormal3.5-5.7The [facility] Hospital Physician GroupComment on above:Performed By: #### CHWH92ELV, HVYH11IP, PROCRERAT, FE and TIBC, URIC, URMACRERAT, UA, MG, PTH, RENAL, CBCNO, GEENA #### [facility] [address] [place] [address] USAGFR/1.73 sq M.predicted MDRD (S/P/Bld) [Vol rate/Area] 45.770 mL/min/{1.73_m2}NormalThe [facility] Hospital Physician GroupComment on above: Performed By: #### CVKS57PHX, YLMG10NY, PROCRERAT, FE and TIBC, URIC, URMACRERAT, UA, MG, PTH, RENAL, CBCNO, GEENA #### [facility] [address] [place] [address] USASerum or plasma anion gap determinationOrdered By: Halle Mac on 45-46-2423Dqkbw gap [Moles/Vol]9.3 mmol/LNormal6.0-15.0C[facility] Clinic FoundationComment on above:Performed By: #### CHOT98XPA, VYCE31NO, PROCRERAT, FE and TIBC, URIC, URMACRERAT, UA, MG, PTH, RENAL, CBCNO, GEENA #### [facility] [address] [place] [address] USASerum or plasma iron binding capacity measurement (mass/volume)Ordered By: Halle Mac on 92-42-1849Shay binding capacity [Mass/Vol]416 ug/tV240-002WkhzmongvKettering Health Springfielderum or plasma iron saturation measurement (mass fraction)Ordered By: Halle Mac on 67-38-8735Dscv saturation [Mass fraction]15.4 %Tle91-51ByrglppntKettering Health Springfieldodium [Moles/volume] in Serum or PlasmaOrdered By: Halle Mac on 73-22-3440Kcueew [Moles/Vol]144 mmol/TPckcrr257-937KwridrxqaCleveland Clinic FoundationComment on above:Performed By: #### IZZW44BWD, TNQY53BW, PROCRERAT, FE and TIBC, URIC, URMACRERAT, UA, MG, PTH, RENAL, CBCNO, GEENA #### [facility] [address] [place] [address] USASpecific gravity Test strip (U) [Rel density]Ordered By: Halle Mac on 60-32-2642Xzzjtrxy gravity (U) [Rel density]1.870Szgk8.001-1.030 [facility] FoundationTelephoneon [id number] Sherly Humphreys 1970 F Date Provider Department Center 11/18/2024 [facility] Family History Problem Relation Age of Onset Cancer Mother Heart attack Father Family Status - Relation Status Age at Mother Father DeceasedNormalUniversity of Baylor Scott & White Medical Center – BrenhamTransferrin [Mass/volume] in Serum or PlasmaOrdered By: Halle Mac on 11-18-2024 Transferrin [Mass/Vol]297 mg/wFGtsppo589-755QbwbtlztxCleveland Clinic Foundation Comment on above:Performed By: #### KKFU60GDY, VYOW60RF, PROCRERAT, FE and TIBC, URIC, URMACRERAT, UA, MG, PTH, RENAL, CBCNO, GEENA #### [facility] [address] [place] [address] USAUrate [Mass/volume] in Serum or PlasmaOrdered By: Halle Mac on 26-80-7790Gpzpb [Mass/Vol]5.1 mg/dLNormal2.3-6.6FSelect Medical Specialty Hospital - ColumbusComment on above:Performed By: #### SPXX34BCN, YYDE47QH, PROCRERAT, FE and TIBC, URIC, URMACRERAT, UA, MG, PTH, RENAL, CBCNO, GEENA #### [facility] [address] [place] [address] USAUrea nitrogen [Mass/volume] in Serum or PlasmaOrdered By: Halle Mac on 81-46-5152Iopk nitrogen [Mass/Vol]25 mg/dLNormal7-25C[facility] FoundationComment on above:Performed By: #### XAXI76QAN, IRZX61ZX, PROCRERAT, FE and TIBC, URIC, URMACRERAT, UA, MG, PTH, RENAL, CBCNO, GEENA #### [facility] [address] [place] [address] USAUrine microalbumin/creatinine mass ratioOrdered By: Halle Mac on 07-81-3409Wxpwfxp/Creatinine DL <= 20 mg/L (U) [Mass ratio]8.1 mg/g 0.0-30.0[facility] Clinic FoundationComment on above:30-300 mg/g indicates an increased risk for diabetic nephropathy. Greater than 300 mg/g is consistent with clinical nephropathy. (Am. J. Kidney Disease 1995, 25:107)Urine protein/creatinine ratioOrdered By: Halle Mac on 17-67-8023Ciuazud/Creatinine (U) [Ratio]85 mg/g{Cre}0-200C[facility] Clinic FoundationUrobilinogen Test strip (U) [Mass/Vol]Ordered By: Halle Mac on 44-78-2487Qzkzcfexqpsn (U) [Mass/Vol]2 mg/dLHighNormMemorial Health SystemVit. B12/Folate Profileon 93-79-1988Tqlkgy2.8 ng/mLNormal>5.9The [facility] Comment on above:Result Comment: Folate reference range: >5.9 ng/ml The WHO technical consultation on folate and vitamin b12 deficiencies has determined that folate concentrations less than 4 ng/ml are considered deficient.Performed By: #### BLTH41LLK, SZNR37SN, PROCRERAT, FE and TIBC, URIC, URMACRERAT, UA, MG, PTH, RENAL, CBCNO, GEENA #### [facility] [address] [place] [address] USAVitamin B12 ser/plasOrdered By: Halle Mac on 11-18-2024 Cobalamin (Vitamin B12) [Mass/Vol]934 pg/rLDgox221-722Kbccgjbul[address] [place], [place] [address]Comment on above:Performed By: #### YQMJ53BRC, CAUZ74LH, PROCRERAT, FE and TIBC, URIC, URMACRERAT, UA, MG, PTH, RENAL, CBCNO, GEENA #### [address] [address] USAVitamin D 25 Hydroxy Totalon 51-22-8834Ysnhwty D 25 Hydroxy Total23.9 ng/sPQdp60-044Atw [facility] Hospital Physician GroupComment on above: Result Comment: VITAMIN D STATUS 25(OH)VITAMIN D RANGE (ng/mL) Deficient <20 Insufficient 20 to <30 Sufficient 30 to 100 Reference: Karen MF,Nicole NC, Ed LI, et al. Evaluation,treatment, and prevention of vitamin D deficiency; an Endocrine Society clinical practice guideline. JCEM. 2010; 96(7):1911-30. PERFORMED BY: [place] [id number] PATHOLOGIST STEAM ENGINEER KRISHAN PAEZ M.D.Performed By: #### JZTD19JNZ, UKQM05VI, PROCRERAT, FE and TIBC, URIC, URMACRERAT, UA, MG, PTH, RENAL, CBCNO, GEENA #### [address] [address] USAVitamin D+Metabolites [Mass/volume] in Serum or Plasma Ordered By: Halle Mac on 67-05-8893Fmozqaw D+Metabolites [Mass/Vol]23.9 ng/mL Vlq22-117EsqbnohkeCleveland Clinic FoundationComment on above:VITAMIN D STATUS 25(OH)VITAMIN D RANGE (ng/mL) Deficient <20 Insufficient 20 to <88Emgsbljxdl45 to 100Reference: Karen MF,Nicole NC, Ed LI, et al. Evaluation,treatment, and prevention of vitamin D deficiency; an Endocrine Society clinical practice guideline. JCEM. 2010; 96(7):1911-30.pH of Urine by Test stripOrdered By: Halle Mac on 25-90-8827uH (U)5.0 [pH]Normal5.0-9.0 [facility] Clinic FoundationComment on above:Order Comment: Name Collection Type:: Clean-Voided MidstreamPerformed By: #### OVEN34VDK, FJVG88IN, PROCRERAT, FE and TIBC, URIC, URMACRERAT, UA, MG, PTH, RENAL, CBCNO, GEENA #### [address] ROZ PERF SPECT REST STRon 76-04-6023[place], [place] [address] Nuclear Medicine Report Signed Patient: SHERLY HUMPHREYS MR#: [id number] : 1970 Acct:[id number] Age/Sex: 53 / F ADM Date: 11/13/24 Loc: [place] Attending Dr: Tk Godoy M.D. Ordering Physician: Tk Godoy M.D. Date of Service: 11/13/24 Procedure(s): NM roz perf SPECT rest str Accession Number(s): [id number] cc: Janene Lew PAVER LAYER; Tk Godoy M.D. Patient Name: SHERLY HUMPHREYS MR#: [id number] : 1970 Exam Date: 11/13/2024 Ordering Doctor: [...] the study was pending per attending physician [facility] . For more details please [...] By: 11/17/24 1002 DD/ 1001 TD/TT: Wood Milling Machine Operator:VLADHRadiology, Radiologist, - 11/17/2024 [place] [address] Nuclear Medicine Report Signed Patient: SHERLY HUMPHREYS MR#: [id number] : 1970 Acct:[id number] Age/Sex: 53 / F ADM Date: 11/13/24 Loc: [place] Attending Dr: Tk Godoy M.D. Ordering Physician: Tk Godoy M.D. Date of Service: 11/13/24 Procedure(s): NM roz perf SPECT rest str Accession Number(s): [id number] cc: Janene Lew PAVER LAYER; Tk Godoy M.D. Patient Name: SHERLY HUMPHREYS MR#: [id number] : 1970 Exam Date: 11/13/2024 Ordering Doctor: [...] the study was pending per attending physician [facility] . For more details please [...] By: 11/17/24 1002 DD/ 1001 TD/TT: Wood Milling Machine Operator: [facility] SCHOOL FOR BOYSLizet HealthcareRadiology Study observation (narrative)[facility] ROZ PERF SPECT REST STROrdered By: Radiologist Radiology on 68-85-0506WHKZ Healthcare Work Phone: Orders Onlyon 35-94-7699Pzdash [id number] Sherly Humphreys 1970 F Date Provider Department Center 11/17/2024 [id number], HISTORICAL CARD [facility] Family History Problem Relation Age of Onset Cancer Mother Heart attack Father Family Status - Relation Status Age at Mother Father DeceasedNoalUniKeenan Private HospitalHbA1c (Bld) [Mass fraction]on 15-67-8502Kjkpciucltiipa and review of laboratory resultsNormEncompass Health Rehabilitation Hospital of Altoona HealthcareLaboratory - Hematology and Cell countson 11-03-2024 HbA1c (Bld) [Mass fraction]5.2 %NOM HealthcareOffice Visiton 56-34-6366Cuvtyj- up [id number] Sherly Humphreys 1970 F Date Provider Department Center 10/16/2024 271-TK GODOY CARD [facility] Family History Problem Relation Age of Onset Cancer Mother Heart attack Father Family Status - Relation Status Age at Mother Father Level of Service:83227 AL OFFICE/OUTPATIENT ESTABLISHED MOD [facility] [address] [facility] HospitalALL CBC WITH AUTO DIFFon 32-01-2017TAOQQWSWT ABSOLUTE AUTO0.1NOMS HealthcareBasophils/100 WBC (Bld)1.1 %0.2 - 2.0 %NOMS HealthcareEosinophils/100 WBC (Bld)3.1 %0.9 - 7.0 %NOM HealthcareErythrocyte distribution width (RBC) [Ratio]12.9 %11.0 - 15.0 %NOMS HealthcareHematocrit (Bld) [Volume fraction]33.2 %Low36.0 - 48.0 %NOM HealthcareHemoglobin (Bld) [Mass/Vol]11.1 g/dLLow12.0 - 16.0 g/dLNOMercy McCune-Brooks HospitalIMMATURE GRANULOCYTES ABS AUTO0.01NOMS HealthcareImmature granulocytes/100 WBC (Bld)0.2 %0.0 - 0.5 %NOM HealthcareInterpretation and review of laboratory resultsAbnormDepartment of Veterans Affairs Medical Center-[facility] LYMPHOCYTES ABSOLUTE AUTO1.7NOMS [facility] HospitalLymphocytes/100 WBC (Bld)38.2 %20.5 - 60.0 %[facility] CenterH (RBC) [Entitic mass]30.1 pg26.7 - 34.0 pgNOChristian HospitalHC (RBC) [Mass/Vol]33.4 g/dL29.9 - 35.2 g/dLNOMS HealthcareMCV (RBC) [Entitic vol]90 fL81.0 - 99.0 fLNOMS HealthcareMONOCYTES ABSOLUTE AUTO0.3NOMS HealthcareMonocytes/100 WBC (Bld)7 %1.7 - 12.0 %NOMS HealthcareNEUTROPHILS ABSOLUTE AUTO2.2NOMS HealthcareNeutrophils/100 WBC (Bld)50.4 %43.0 - 75.0 %NOMS HealthcarePlatelet mean volume (Bld) [Entitic vol]11.2 fL9.5 - 13.5 fLNOMS HealthcareTBH EO #0.1NOMS HealthcareTBH KRA976QCYB HealthcareTBH RBC3.69LowNOMS HealthcareTBH WBC4.5NOMS HealthcareCLINISYNCNOMS HealthcareECG 12-LEADon 62-84-0019EmnWh[place] [address] Electrocardiograph Report Signed Patient: SHERLY HUMPHREYS MR#: [id number] : 1970 Acct:[id number] Age/Sex: 53 / F ADM Date: 10/07/24 Loc: [facility] Attending Dr: Marcella Conway M.D. Ordering Physician: Marcella Conway M.D. Date of Service: 10/07/24 Procedure(s): ECG 12 lead Accession Number(s): [id number] cc: [facility] Test Date: 2024-10-07 Pat Name: SHERLY HUMPHREYS Department: Room: - Gender: Female Communications Designer: : 1970 Requested By: 1822 Order Number: [id number] Maryjo MD: LITO EDEN M.D. Measurements Intervals Natalia Rate: 51 P: 30 AL: 182 QRS: -16 QRSD: 105 T: 0 [...] By: LITO EDEN Signed By: 10/07/242153 DD/ 100 TD/TT: Wood Milling Machine Operator:VLADHRadiology, Radiologist, - 10/07/2024 [place] [address] Electrocardiograph Report Signed Patient: SHERLY HUMPHREYS MR#: [id number] : 1970 Acct:[id number] Age/Sex: 53 / F ADM Date: 10/07/24 Loc: PST Attending Dr: Marcella Conway M.D. Ordering Physician: Marcella Conway M.D. Date of Service: 10/07/24 Procedure(s): ECG 12 lead Accession Number(s): [id number] cc: [facility] Test Date: 2024-10-07 Pat Name: SHERLY HUMPHREYS Department: Room: - Gender: Female Communications Designer: : 1970 Requested By: 1822 Order Number: [id number] Reading MD: LITO EDEN M.D. Measurements Intervals Natalia Rate: 51 P: 30 AL: 182 QRS: -16 QRSD: 105 T: 0 [...] By: LITO EDEN Signed By: 10/07/242153 DD/ 100 TD/TT: Wood Milling Machine Operator: VARUN HealthcareRadiology Study observation (narrative)NOMS HealthcareECG 12-LEAD Ordered By: Radiologist Radiology on 29-38-0999QHDJ Healthcare Work Phone: XR CHEST 2Von 06-22-6363J[address] [address] XRay Report Signed Patient: SHERLY HUMPHREYS MR#: [id number] : 1970 Acct:[id number] Age/Sex: 53 / F ADM Date: 10/07/24 Loc: [facility] Attending Dr: Marcella Conway M.D. Ordering Physician: Marcella Conway M.D. Date of Service: 10/07/24 Procedure(s): XR chest 2V Accession Number(s): [id number] cc: Janene Lew NP; Marcella Conway M.D. The [address] [address] Patient Name: HSERLY HUMPHREYS MRN: [facility]:[id number] date: 1970 Sex: F Assigned Patient Location: [facility] Current Patient Location: [facility] Accession/Order Number: [id number] Exam Date: 10/07/2024 12:58 Report Date: 10/07/2024 12:59 At the request of: MARCELLA CONWAY MD Procedure: XR chest 2V Chest 2 views CLINICAL HISTORY: Pre Op COMPARISON: Chest 07/05/2024 FINDINGS: Heart normal in size. Lungs are clear. No free air. XR/XR chest 2V IMPRESSION: NO ACUTE CARDIOPULMONARY ABNORMALITY. Impression dictated by: Azalea Flores Jr.OGerardo 10/07/2024 12:59 PM Dictation Location: [place] [address] Electronically authenticated by: [id number] Y Date: 10/07/2024 12:59 Dictated By: Kip Mon M.D. Signed By: 10/07/24 1302 DD/ 1259 TD/TT: Wood Milling Machine Operator:KYLIEadiologjasmyn, MD [place] - 10/07/[address] [place] [address] XRay Report Signed Patient: SHERLY HUMPHREYS MR#: [id number] : 1970 Acct:[id number] Age/Sex: 53 / F ADM Date: 10/07/24 Loc: [facility] Attending Dr: Marcella Conway M.D. Ordering Physician: Marcella Conway M.D. Date of Service: 10/07/24 Procedure(s): XR chest 2V Accession Number(s): [id number] cc: Janene Lew PAVER LAYER; Marcella Conway M.D. [address] [address] Patient Name: SHERLY HUMPHREYS MRN: [facility]:[id number] date: 1970 Sex: F Assigned Patient Location: [facility] Current Patient Location: [facility] Accession/Order Number: [id number] Exam Date: 10/07/2024 12:58 Report Date: 10/07/2024 12:59 At the request of: MARCELLA CONWAY MD Procedure: XR chest 2V Chest 2 views CLINICAL HISTORY: Pre Op COMPARISON: Chest 07/05/2024 FINDINGS: Heart normal in size. Lungs are clear. No free air. XR/XR chest 2V IMPRESSION: NO ACUTE CARDIOPULMONARY ABNORMALITY. Impression dictated by: Kip Mon Jr. DGerardoOGerardo 10/07/2024 12:59 PM Dictation Location: [place] [address] Electronically authenticated by: [id number] Y Date: 10/07/2024 12:59 Dictated By: Kip Mon M.D. Signed By: 10/07/24 1302 DD/ 1259 TD/TT: Wood Milling Machine Operator: VARUN HealthcareRadiology Study observation (narrative)NOMS HealthcareXR CHEST 2V Ordered By: Radiologist Radiology on 80-03-4160SKYC Healthcare Work Phone: all CBC WITH AUTO DIFFon 08-44-7186ADGGZNSHD ABSOLUTE AUTO0.1NOMS HealthcareBasophils/100 WBC (Bld)0.8 %0.2 - 2.0 %[facility]OM[facility] Healthcare Eosinophils/100 WBC (Bld)3.2 %0.9 - 7.0 %[facility]ox NorthErythrocyte distribution width (RBC) [Ratio]13 %11.0 - 15.0 %[facility] HealthcareHematocrit (Bld) [Volume fraction]33.6 %Low36.0 - 48.0 %[facility] NorthHemoglobin (Bld) [Mass/Vol]10.9 g/dLLow12.0 - 16.0 g/dLCox NorthIMMATURE GRANULOCYTES ABS AUTO0.01NOMS HealthcareImmature granulocytes/100 WBC (Bld)0.2 %0.0 - 0.5 %[facility] Interpretation and review of laboratory resultsAbnormalNOMercy [facility] LYMPHOCYTES ABSOLUTE AUTO2.8NOMercy McCune-Brooks HospitalLymphocytes/100 WBC (Bld)46.4 %20.5 - 60.0 %[facility] CenterH (RBC) [Entitic mass]30.2 pg26.7 - 34.0 pgNOChristian HospitalHC (RBC) [Mass/Vol]32.4 g/dL29.9 - 35.2 g/dLCox NorthMCV (RBC) [Entitic vol]93.1 fL81.0 - 99.0 fLCox NorthMONOCYTES ABSOLUTE AUTO0.4NOMS HealthcareMonocytes/100 WBC (Bld)6.6 %1.7 - 12.0 %Cox NorthNEUTROPHILS ABSOLUTE AUTO2.5NOMS [facility] HospitalNeutrophils/100 WBC (Bld)42.8 %Low43.0 - 75.0 % Cox NorthPlatelet mean volume (Bld) [Entitic vol]10.8 fL9.5 - 13.5 fLNOMercy McCune-Brooks HospitalTBH EO #0.2NOMS [facility] HospitalTB OPA607ONGJ [facility] HospitalTB RBC3.61LowNOMS [facility] HospitalTB WBC5.9NOMercy McCune-Brooks HospitalCLINISYNCNOMS HealthcareXR Hip - right 3 Viewson 27-60-8382Kid [address] [address] XRay Report Signed Patient: SHERLY HUMPHREYS MR#: [id number] : 1970 Acct:[id number] Age/Sex: 53 / F ADM Date: 08/28/24 Loc: RAD Attending Dr: Elizabeth Meneses NP Ordering Physician: Elizabeth Meneses NP Date of Service: 08/28/24 Procedure(s): XR hip RT min 2V Accession Number(s): [id number] cc: Janene Lew NP; Elizabeth Meneses NP [facility] [place] [id number] Patient Name: SHERLY HUMPHREYS MRN: [facility]:[id number] date: 1970 Sex: F Assigned Patient Location: RAD Current Patient Location: RAD Accession/Order Number: [id number] Exam Date: 08/28/2024 10:29 Report Date: 08/28/2024 [...] Lubin M.D. 08/28/2024 10:30 AM Dictation Location: [place] [address] Electronically authenticated by: [id number] Y Date: 08/28/2024 10:30 Dictated By: Franco Lubin M.D. Signed By: 08/28/24 1032 DD/ 1030 TD/TT: [employer] Operator:VLADHRadiology, Radiologist, - 08/28/2024 [place] [address] XRay Report Signed Patient: SHERLY HUMPHREYS MR#: [id number] : 1970 Acct:[id number] Age/Sex: 53 / F ADM Date: 08/28/24 Loc: RAD Attending Dr: Elizabeth Meneses NP Ordering Physician: Elizabeth Meneses NP Date of Service: 08/28/24 Procedure(s): XR hip RT min 2V Accession Number(s): [id number] cc: Janene Lew NP; Elziabeth Meneses NP [place] [id number] Patient Name: SHERLY HUMPHREYS MRN: [facility]:[id number] date: 1970 Sex: F Assigned Patient Location: [facility] Current Patient Location: [facility] Accession/Order Number: [id number] Exam Date: 08/28/2024 10:29 Report Date: 08/28/2024 [...] Lubin M.D. 08/28/2024 10:30 AM Dictation Location: [place] [address] Electronically authenticated by: [id number] Y Date: 08/28/2024 10:30 Dictated By: Franco Lubin M.D. Signed By: 08/28/24 1032 DD/ 1030 TD/TT: [employer]illing Machine Operator: NOMLizet HealthcareRadiology Study observation (narrative)NOMS HealthcareXR Hip - right 3 ViewsOrdered By: Radiologist Radiology on 04-48-8801BODQCox North Work Phone: HbA1c (Bld) [Mass fraction]on 23-92-2471Ojuaiydnqktufm and review of laboratory resultsNormalNOSaint Francis Medical Center HealthcareLaboratory - Hematology and Cell countson 21-88-8813MsC1m (Bld) [Mass fraction]5.5 %NOMS HealthcareFerritinon 95-23-6024Gfqszsnl [Mass/Vol]135.5 ng/wHNjgzzx79.0-306.8The [facility] Physician GroupComment on above:Performed By: #### GYEY62NFC, QNFH19YW, PROCRERAT, FE and TIBC, URIC, URMACRERAT, UA, MG, PTH, RENAL, CBCNO, GEENA #### [facility] [address] [place] [address] USAHemogram CBC Without Diffon 55-55-1872Unaoagppfel distribution width (RBC) [Ratio]14.6 %Pmxvua31.9-15.3The [facility] Physician GroupComment on above:Performed By: #### OIXU98MNH, CKFX14CV, PROCRERAT, FE and TIBC, URIC, URMACRERAT, UA, MG, PTH, RENAL, CBCNO, GEENA #### [facility] [address] [place] [address] USAHematocrit (Bld) [Volume fraction]34.9 %Pgjilr17.0-46.4The [facility] Physician GroupComment on above:Performed By: #### OJAF96RAJ, RYVN70VI, PROCRERAT, FE and TIBC, URIC, URMACRERAT, UA, MG, PTH, RENAL, CBCNO, GEENA #### [facility] [address] [place] [address] USAHemoglobin (Bld) [Mass/Vol]11.4 g/dLLow11.8-15.4The [facility] Physician GroupComment on above:Performed By: #### GSBH60SGT, LVIF73XE, PROCRERAT, FE and TIBC, URIC, URMACRERAT, UA, MG, PTH, RENAL, CBCNO, GEENA #### [facility] [address] [place] [address] USAMCH (RBC) [Entitic mass]29.7 riZqihix73.7-34.3The [facility] Physician GroupComment on above:Performed By: #### SXMI51TIS, MYIE88TP, PROCRERAT, FE and TIBC, URIC, URMACRERAT, UA, MG, PTH, RENAL, CBCNO, GEENA #### [place] [address] USAMCV (RBC) [Entitic vol]91.3 hVUlsjci30-309Fqf [facility] Physician GroupComment on above:Performed By: #### FDPF88AZW, XPET25MS, PROCRERAT, FE and TIBC, URIC, URMACRERAT, UA, MG, PTH, RENAL, CBCNO, GEENA #### [place] [address] USAMean Corpuscular HGB Conc32.6 g/gWHwasws58.0-35.0The [facility] Physician GroupComment on above:Performed By: #### CFHJ29JMW, UXXK87RT, PROCRERAT, FE and TIBC, URIC, URMACRERAT, UA, MG, PTH, RENAL, CBCNO, GEENA #### [place] [address] USAPlatelet mean volume (Bld) [Entitic vol]8.7 fLNormal 6.3-10.7The [facility] Physician GroupComment on above:Result Comment: PERFORMED BY: [place] [address] PATHOLOGIST STEAM ENGINEER SHANIQUE CALDERON M.D.Performed By: #### NUUI68WNL, EZMG67BK, PROCRERAT, FE and TIBC, URIC, URMACRERAT, UA, MG, PTH, RENAL, CBCNO, GEENA #### [place] [address] USAPlatelets (Bld) [#/Vol]328 10*3/zADzedow239-046Ugl [facility] Physician GroupComment on above:Performed By: #### AQYK59QYU, WUEQ01QN, PROCRERAT, FE and TIBC, URIC, URMACRERAT, UA, MG, PTH, RENAL, CBCNO, GEENA #### [place] [address] USARBC (Bld) [#/Vol]3.83 10*6/uLNormal3.60-5.00The [facility] Physician GroupComment on above:Performed By: #### XJFN28HJU, IJAQ39QU, PROCRERAT, FE and TIBC, URIC, URMACRERAT, UA, MG, PTH, RENAL, CBCNO, GEENA #### [place] [address] USAWBC (Bld) [#/Vol]5.1 10*3/uLNormal3.8-11.6The [facility] Physician GroupComment on above:Performed By: #### DDLB99FXE, IMSO51MU, PROCRERAT, FE and TIBC, URIC, URMACRERAT, UA, MG, PTH, RENAL, CBCNO, GEENA #### [place] [address] USAIron and TIBC Profileon 03-11-2024% Iron Ogdvvicbho00.1 % Klgbgd73-98Rti [facility] Physician GroupComment on above:Performed By: #### OKVS15QOD, ETZQ32VX, PROCRERAT, FE and TIBC, URIC, URMACRERAT, UA, MG, PTH, RENAL, CBCNO, GEENA #### [place] [address] USAIron [Mass/Vol]118 ug/yYRlclrp65-969Ogy [facility] Physician GroupComment on above:Performed By: #### VAZN01MOW, CFKY24XW, PROCRERAT, FE and TIBC, URIC, URMACRERAT, UA, MG, PTH, RENAL, CBCNO, GEENA #### [place] [address] USATotal Iron Binding Aknwstzh897 ug/pPNhaowv342-452Gon [facility] Physician GroupComment on above:Performed By: #### JCKH56QGS, CJKQ85VF, PROCRERAT, FE and TIBC, URIC, URMACRERAT, UA, MG, PTH, RENAL, CBCNO, GEENA #### [facility] [address] [place] [address] USATransferrin [Mass/Vol]280 mg/aUSuwkuu145-853Rre [facility] Physician GroupComment on above:Performed By: #### WYND11HPB, ILSL78PU, PROCRERAT, FE and TIBC, URIC, URMACRERAT, UA, MG, PTH, RENAL, CBCNO, GEENA #### [facility] [address] [place] [address] USAMagnesiumon 97-36-4830Nfgnymgiw [Mass/Vol]1.9 mg/dLNormal 1.9-2.7The [facility] Physician GroupComment on above:Performed By: #### JHDB45XKK, EHBX72WN, PROCRERAT, FE and TIBC, URIC, URMACRERAT, UA, MG, PTH, RENAL, CBCNO, GEENA #### [place] [address] USAMicroAlb Creat Ratio,Uon 37-93-2236Muriwra DL <= 20 mg/L (U) [Mass/Vol]mg/dLNormal0.0-1.8The [facility] Physician GroupComment on above: Performed By: #### CPFF90SCZ, KAQO40II, PROCRERAT, FE and TIBC, URIC, URMACRERAT, UA, MG, PTH, RENAL, CBCNO, GEENA #### [facility] [address] [place], [place] [address] USACreatinine, Urine (Random)57.00 mg/dLNormalThe [facility] Physician GroupComment on above:Result Comment: No reference range established Performed By: #### OLBD91MIV, XRWQ44VI, PROCRERAT, FE and TIBC, URIC, URMACRERAT, UA, MG, PTH, RENAL, CBCNO, GEENA #### [place] [id number] USAMicroalbumin/Creatinine RatioNot performedNormal0.0-30.0 The [facility] Physician GroupComment on above:Performed By: #### YTYG59ILO, YJUW68TV, PROCRERAT, FE and TIBC, URIC, URMACRERAT, UA, MG, PTH, RENAL, CBCNO, GEENA #### [place] [address] USAParathyroid Hormone Intacton 10-80-3597Geuiojhpcxq Hormone Znqqhg46.6 pg/wALklhdc13-03Tkk [facility] Physician GroupComment on above:Result Comment: PERFORMED BY: [place] [address] PATHOLOGIST STEAM ENGINEER SHANIQUE CALDERON M.D.Performed By: #### LATP11QJF, PNTV93SB, PROCRERAT, FE and TIBC, URIC, URMACRERAT, UA, MG, PTH, RENAL, CBCNO, GEENA #### [place] [address] USAProtein Creat Ratio Ur Randomon 87-93-8378Hgfvdvb (U) [Mass/Vol]5 mg/dLNormal0-9The [facility] Physician GroupComment on above: Performed By: #### HULT07PES, DVIU33AM, PROCRERAT, FE and TIBC, URIC, URMACRERAT, UA, MG, PTH, RENAL, CBCNO, GEENA #### [place] [id number] USAUrine Protein/Creatinine Ratio88 mg/g{Cre}Normal0-200The [facility] Physician GroupComment on above:Result Comment: PERFORMED BY: [place] [id number] PATHOLOGIST STEAM ENGINEER SHANIQUE CALDERON M.D.Performed By: #### WQJL87RJL, PNSQ74YI, PROCRERAT, FE and TIBC, URIC, URMACRERAT, UA, MG, PTH, RENAL, CBCNO, GEENA #### [place] [id number] USARenal Function Panelon 02-07-2108Fppfqnq [Mass/Vol]3.9 g/dLNormal3.5-5.7The [facility] Physician GroupComment on above:Performed By: #### [id number], QOXC30CW, PROCRERAT, FE and TIBC, URIC, URMACRERAT, UA, MG, PTH, RENAL, CBCNO, GEENA #### [facility] [address] [place] [address] USAAnion gap [Moles/Vol]12.5 mmol/LNormal6.0-15.0The [facility] Physician GroupComment on above:Performed By: #### JOUZ21UST, UOFL86TU, PROCRERAT, FE and TIBC, URIC, URMACRERAT, UA, MG, PTH, RENAL, CBCNO, GEENA #### [facility] [address] [place] [address] USACalcium [Mass/Vol]9.4 mg/dLNormal8.6-10.3The [facility] Physician GroupComment on above:Performed By: #### ZQXA25QJS, WWZM24GL, PROCRERAT, FE and TIBC, URIC, URMACRERAT, UA, MG, PTH, RENAL, CBCNO, GEENA #### [facility] [address] [place] [address] USAChloride [Moles/Vol]110 mmol/TKgxd08-425Lnt [facility] Physician GroupComment on above:Performed By: #### NXZS39YIH, ZTRV67RL, PROCRERAT, FE and TIBC, URIC, URMACRERAT, UA, MG, PTH, RENAL, CBCNO, GEENA #### [facility] [address] [place] [address] USACO2 [Moles/Vol]25.0 mmol/FHayrkr21.0-31.0The [facility] Physician GroupComment on above:Performed By: #### UWFJ77CFA, OZRT61KS, PROCRERAT, FE and TIBC, URIC, URMACRERAT, UA, MG, PTH, RENAL, CBCNO, GEENA #### [facility] [address] [place] [address] USACreatinine [Mass/Vol]1.50 mg/dLHigh0.60-1.20The [facility] Physician GroupComment on above:Performed By: #### HMZM80WJL, TYDR57NZ, PROCRERAT, FE and TIBC, URIC, URMACRERAT, UA, MG, PTH, RENAL, CBCNO, GEENA #### [facility] [address] [place] [address] USAEstimated GFR41.412 mL/MinNormalThe [facility] Physician GroupComment on above:Performed By: #### QCJQ50IHL, EPKY12OI, PROCRERAT, FE and TIBC, URIC, URMACRERAT, UA, MG, PTH, RENAL, CBCNO, GEENA #### [facility] [address] [place] [address] USAGlucose [Mass/Vol]88 mg/kCHczwbd44-927Oso [facility] Physician GroupComment on above:Result Comment: Random Glucose Reference Range is dependent on time and content of last meal. Glucose of more than 200 mg/dL in a nonstressed, ambulatory subject supports the diagnosis of Diabetes Mellitus. ADA recommended reference rangePerformed By: #### XWVD71CAD, ODPG93SB, PROCRERAT, FE and TIBC, URIC, URMACRERAT, UA, MG, PTH, RENAL, CBCNO, GEENA #### [place] [address] USAPhosphate [Mass/Vol]2.7 mg/dLNormal2.5-4.5The [facility] Physician GroupComment on above:Performed By: #### ICSN34IEL, FJFY65GV, PROCRERAT, FE and TIBC, URIC, URMACRERAT, UA, MG, PTH, RENAL, CBCNO, GEENA #### [facility] [address] [place] [address] USAPotassium [Moles/Vol]4.5 mmol/LNormal3.5-5.1The [facility] Physician GroupComment on above:Performed By: #### TJJS69GHE, YGCB53RO, PROCRERAT, FE and TIBC, URIC, URMACRERAT, UA, MG, PTH, RENAL, CBCNO, GEENA #### [facility] [address] [place] [address] USASodium [Moles/Vol]143 mmol/TGaikbz662-725Hzq [facility] Physician GroupComment on above:Performed By: #### LEPQ11NIU, VDGG93WS, PROCRERAT, FE and TIBC, URIC, URMACRERAT, UA, MG, PTH, RENAL, CBCNO, GEENA #### [facility] [address] [place] [address] USAUrea nitrogen [Mass/Vol]18 mg/dLNormal7-25The [facility] Physician GroupComment on above:Performed By: #### JVPG34KWK, ALDM55UW, PROCRERAT, FE and TIBC, URIC, URMACRERAT, UA, MG, PTH, RENAL, CBCNO, GEENA #### [facility] [address] [place] [address] USAUric Acidon 55-68-7784Yhxgp [Mass/Vol]6.3 mg/dLNormal 2.3-6.6The [facility] Physician GroupComment on above:Performed By: #### RWCE31NJM, SRGH87QX, PROCRERAT, FE and TIBC, URIC, URMACRERAT, UA, MG, PTH, RENAL, CBCNO, GEENA #### [facility] [address] [place] [address] USAUrinalysison 28-37-0178Jswhplyqgo (U)ClearNormalClearThe [facility] Physician GroupComment on above:Order Comment: Name Collection Type:: Clean-Voided MidstreamPerformed By: #### PCXA21YQW, YVDV00QS, PROCRERAT, FE and TIBC, URIC, URMACRERAT, UA, MG, PTH, RENAL, CBCNO, GEENA #### [facility] [address] [place] [address] USABilirubin,UrineNegativeNormalNegativeThe [facility] Physician GroupComment on above:Order Comment: Name Collection Type:: Clean- Voided MidstreamPerformed By: #### BANP08LYK, NHMP17ZE, PROCRERAT, FE and TIBC, URIC, URMACRERAT, UA, MG, PTH, RENAL, CBCNO, GEENA #### [place] [address] USAColor (U)Light-YellowNormalYellowAdventhealth Altamonte Springs Physician GroupComment on above:Order Comment: Name Collection Type:: Clean-Voided MidstreamPerformed By: #### CWYV61DBR, TUYG79IJ, PROCRERAT, FE and TIBC, URIC, URMACRERAT, UA, MG, PTH, RENAL, CBCNO, GEENA #### [place] [address] USAGlucose Ql (U)NormalNormalNormalThSt. Luke's [facility] Physician GroupComment on above:Order Comment: Name Collection Type:: Clean-Voided MidstreamPerformed By: #### ABBJ66MWF, JZWU41SV, PROCRERAT, FE and TIBC, URIC, URMACRERAT, UA, MG, PTH, RENAL, CBCNO, GEENA #### [place] [address] USAKetones Ql (U)NegativeNormalNegativeAdventhealth [facility]amon[facility] Physician GroupComment on above:Order Comment: Name Collection Type:: Clean- Voided MidstreamPerformed By: #### BWRJ20OUY, NNDC59XJ, PROCRERAT, FE and TIBC, URIC, URMACRERAT, UA, MG, PTH, RENAL, CBCNO, GEENA #### [place] [address] USALeukocyte esterase Test strip Ql (U)NegativeNormalNegative [facility] Physician GroupComment on above:Order Comment: Name Collection Type:: Clean-Voided MidstreamPerformed By: #### SSAZ94FAB, GXHH87YA, PROCRERAT, FE and TIBC, URIC, URMACRERAT, UA, MG, PTH, RENAL, CBCNO, GEENA #### [place] [address] USANitrite,UrineNegativeNormalNegativeAdventhealth Altamon[facility] Springs Physician GroupComment on above:Order Comment: Name Collection Type:: Clean-Voided MidstreamPerformed By: #### WMAR62AQU, SWII77DO, PROCRERAT, FE and TIBC, URIC, URMACRERAT, UA, MG, PTH, RENAL, CBCNO, GEENA #### [place] [id number] USAOccult Blood,UrineNegativeNormalNegativeThe [facility] Physician GroupComment on above:Order Comment: Name Collection Type:: Clean- Voided MidstreamResult Comment: PERFORMED BY: [place] [address] PATHOLOGIST STEAM ENGINEER SHANIQUE CALDERON M.D.Performed By: #### AOXP40DYN, FFDV03VC, PROCRERAT, FE and TIBC, URIC, URMACRERAT, UA, MG, PTH, RENAL, CBCNO, GEENA #### [place] [address] USApH (U)5.5 [pH]Normal5.0-9.0The [facility] Physician Group Comment on above:Order Comment: Name Collection Type:: Clean-Voided Midstream Performed By: #### UDMQ62CDS, KUZE44QQ, PROCRERAT, FE and TIBC, URIC, URMACRERAT, UA, MG, PTH, RENAL, CBCNO, GEENA #### [place] [address] USAProtein,UrineNegativeNormalNegativeThe [facility] Physician GroupComment on above:Order Comment: Name Collection Type:: Clean-Voided MidstreamPerformed By: #### NBAH54JRB, VXID60NL, PROCRERAT, FE and TIBC, URIC, URMACRERAT, UA, MG, PTH, RENAL, CBCNO, GEENA #### [place] [address] USASpecificy Fluker,Urine1.083Pdoswy0.001-1.030The [facility] Physician GroupComment on above:Order Comment: Name Collection Type:: Clean- Voided MidstreamPerformed By: #### WILC82FXK, CTIE95JU, PROCRERAT, FE and TIBC, URIC, URMACRERAT, UA, MG, PTH, RENAL, CBCNO, GEENA #### [facility] [address] [place] [address] USAUrobilinogen,UrineNormalNormalNormalThe [facility] Physician GroupComment on above:Order Comment: Name Collection Type:: Clean- Voided MidstreamPerformed By: #### LZMC65ZWD, SCVH18DT, PROCRERAT, FE and TIBC, URIC, URMACRERAT, UA, MG, PTH, RENAL, CBCNO, GEENA #### [facility] [address] [place] [address] USAVit. B12/Folate Profileon 46-31-3253Mzxhccpjl (Vitamin B12) [Mass/Vol]4548 pg/fRSnol880-712Jcf [facility] Physician GroupComment on above:Performed By: #### CEOB69WWV, MZJC83AK, PROCRERAT, FE and TIBC, URIC, URMACRERAT, UA, MG, PTH, RENAL, CBCNO, GEENA #### [facility] [address] [place] [address] USAFolate8.2 ng/mLNormal>5.9The [facility] Physician Group Comment on above:Result Comment: Folate reference range: >5.9 ng/ml The WHO technical consultation on folate and vitamin b12 deficiencies has determined that folate concentrations less than 4 ng/ml are considered deficient.Performed By: #### NEWC56KQP, ZWAY52IJ, PROCRERAT, FE and TIBC, URIC, URMACRERAT, UA, MG, PTH, RENAL, CBCNO, GEENA #### [facility] [address] [place] [address] USAVitamin D 25 Hydroxy Totalon 82-55-8889Cvacpox D 25 Hydroxy Total25.0 ng/eZMdf53-438Yrz [facility] Physician GroupComment on above: Result Comment: VITAMIN D STATUS 25(OH)VITAMIN D RANGE (ng/mL) Deficient <20 Insufficient 20 to <30 Sufficient 30 to 100 Reference: Karen MF,Nicole NC, Ed LI, et al. Evaluation,treatment, and prevention of vitamin D deficiency; an Endocrine Society clinical practice guideline. JCEM. 2010; 96(7):1911-30. PERFORMED BY: [facility] [address] [facility] [place] [address] PATHOLOGIST STEAM ENGINEER SHANIQUE CALDERON M.D.Performed By: #### VCLB43QNS, MOYO88EW, PROCRERAT, FE and TIBC, URIC, URMACRERAT, UA, MG, PTH, RENAL, CBCNO, GEENA #### [facility] [address] [place] [address] EQQUdX6s (Bld) [Mass fraction]on 07-47-4284Gkicujiakgpyou and review of laboratory resultsNormalWatauga Medical CenterLaboratory - Hematology and Cell countson 25-89-6707HeC2u (Bld) [Mass fraction]5.1 %Cox NorthALL CBC WITH AUTO DIFFon 71-70-1117SJHGGSAHE ABSOLUTE AUTO0.1NOMS HealthcareBasophils/100 WBC (Bld)0.6 %0.2 - 2.0 %NOM HealthcareEosinophils/100 WBC (Bld)1.4 %0.9 - 7.0 %[facility] HealthcareErythrocyte distribution width (RBC) [Ratio]14.1 %11.0 - 15.0 %Cox NorthHematocrit (Bld) [Volume fraction]40.0 %36.0 - 48.0 %Cox NorthHemoglobin (Bld) [Mass/Vol]12.4 g/dL12.0 - 16.0 g/dLCox NorthIMMATURE GRANULOCYTES ABS AUTO0.03NOMercy McCune-Brooks HospitalImmature granulocytes/100 WBC (Bld)0.4 %0.0 - 0.5 %Cox NorthLYMPHOCYTES ABSOLUTE AUTO1.9NOMS [facility] HospitalLymphocytes/100 WBC (Bld)24.7 %20.5 - 60.0 %[facility] CenterH (RBC) [Entitic mass]28.4 pg26.7 - 34.0 pgWestern Missouri Medical CenterHC (RBC) [Mass/Vol]31.0 g/dL29.9 - 35.2 g/dLWestern Missouri Medical CenterV (RBC) [Entitic vol]91.5 fL 81.0 - 99.0 fLNOMS HealthcareMONOCYTES ABSOLUTE AUTO0.4[facility] Healthcare Monocytes/100 WBC (Bld)4.6 %1.7 - 12.0 %NOMS HealthcareNEUTROPHILS ABSOLUTE AUTO 5.3NOMS HealthcareNeutrophils/100 WBC (Bld)68.3 %43.0 - 75.0 %[facility] Platelet mean volume (Bld) [Entitic vol]11.1 fL9.5 - 13.5 fLNOMS HealthcareTBH EO #0.1NOMS HealthcareTBH [id number] HealthcareTBH RBC4.37NOMS HealthcareTBH WBC 7.8NOMS HealthcareCLINISYNCNOMS HealthcareOffice Visiton 10-68-7165Lllaeu-up [id number] Sherly Humphreys 1970 F Date Provider Department Center 12/18/2023 271-TK [facility] No family history on file Level of Service:03292 [place] OFFICE/OUTPATIENT ESTABLISHED LOW MDM [address] [facility]Glucose Glucometer (BldC) [Mass/Vol]Ordered By: Ban Clemente on 58-77-5028Oslagev [Mass/Vol]107 mg/dLCleveland Clinic FoundationComment on above:Random Glucose Reference Range is dependent on time and content of last meal. Glucose of more than 200 mg/dL in a nonstressed, ambulatory subject supports the diagnosis of Diabetes Mellitus.No Panel InformationOrdered By: Ban Clemente on 84-11-8554Scihzrl Glucose CommentGlu2: cleaned meterCleveland Clinic FoundationCalcium [Mass/volume] in Serum or PlasmaOrdered By: Fernando Rosenberg on 86-94-4815Cbpumcg [Mass/Vol]9.7 mg/dL 8.6-10.3FSelect Medical Specialty Hospital - ColumbusCarbon dioxide, total [Moles/volume] in Serum or PlasmaOrdered By: Fernando Rosenberg on 50-96-9018WP4 [Moles/Vol]26.7 mmol/L21.0-31.0C[facility] Clinic FoundationChloride [Moles/volume] in Serum or PlasmaOrdered By: Fernando Rosenberg on 08-84-8007Jmusnsln [Moles/Vol] 107 mmol/L33-659JfehqbjkyCleveland Clinic FoundationCreatinine [Mass/volume] in Serum or PlasmaOrdered By: Fernando Rosenberg on 15-07-0448Cmaoqvwlqs [Mass/Vol]2.04 mg/dLHigh0.60-1.20[facility] FoundationGlucose [Mass/volume] in Serum or PlasmaOrdered By: Fernando Rosenberg on 10-11-2023 Glucose [Mass/Vol]96 mg/jH41-113TqoznjqhqCleveland Clinic FoundationComment on above:ADA recommended reference rangeRandom Glucose Reference Range is dependent on time and content of last meal. Glucose of more than 200 mg/dL in a nonstressed, ambulatory subject supports the diagnosisof Diabetes Mellitus.No Panel InformationOrdered By: Fernando Rosenberg on 65-31-4110Midlaiqfi GFR (CKD-EPI)28.812 mL/MinCleveland Clinic FoundationPharmacy Creatinine Clearance (ChemN/City HospitalPotassium [Moles/volume] in Serum or PlasmaOrdered By: Fernando Rosenberg on 09-84-1068Eufghhxvt [Moles/Vol]5.2 mmol/LHigh3.5-5.1FKettering Health Daytonerum or plasma anion gap determinationOrdered By: Fernando Rosenberg on 51-33-1523Mnajf gap [Moles/Vol]11.5 mmol/L6.0-15.0[facility]tering Health Springfieldodium [Moles/volume] in Serum or PlasmaOrdered By: Fernando Rosenberg on 10-11-2023 Sodium [Moles/Vol]140 mmol/W381-421HybzrzbkcCleveland Clinic FoundationUrea nitrogen [Mass/volume] in Serum or PlasmaOrdered By: Fernando Rosenberg on 32-65-5537Zalw nitrogen [Mass/Vol]41 mg/dLHigh7-25C[facility] Clinic FoundationBasophils Auto (Bld) [#/Vol]Ordered By: Fernando Rosenberg on 10-02-2023 Basophils (Bld) [#/Vol]0.0 10*3/uL0.0-0.2FSelect Medical Specialty Hospital - Columbus Basophils/100 WBC Auto (Bld)Ordered By: Fernando Rosenberg on 10-02-2023 Basophils/100 WBC (Bld)0.8 %.C[facility] Clinic FoundationCalcium [Mass/volume] in Serum or PlasmaOrdered By: Fernando Petersenaz on 10-02-2023 Calcium [Mass/Vol]9.0 mg/dL8.6-10.3FSelect Medical Specialty Hospital - ColumbusCarbon dioxide, total [Moles/volume] in Serum or PlasmaOrdered By: Fernandojessica Petersenaz on 56-34-3624EJ6 [Moles/Vol]26.9 mmol/L21.0-31.0C[facility] Clinic FoundationChloride [Moles/volume] in Serum or PlasmaOrdered By: Fernando Doamewestfields hospital and clinic on 40-13-4174Pbhhievd [Moles/Vol]110 mmol/ZQpii34-367JegqfndhbCleveland Clinic FoundationCreatinine [Mass/volume] in Serum or PlasmaOrdered By: Fernando Aguilarwestfields hospital and clinic on 38-03-7518Sqmmigjlqv [Mass/Vol]1.52 mg/dLHigh0.60-1.20C[facility] Clinic FoundationComment on above:Delta: 2.27 on 10/01/23-0758Eosinophils Auto (Bld) [#/Vol]Ordered By: Fernando catrachowestfields hospital and clinic on 14-38-4038Vzaaabakwbc (Bld) [#/Vol]0.2 10*3/uL0.0-0.45C[facility] Clinic FoundationEosinophils/100 WBC Auto (Bld)Ordered By: Fernando Aguilarwestfields hospital and clinic on 87-98-0734Eqztggbtgaj/100 WBC (Bld) 3.4 %.C[facility] Clinic FoundationErythrocyte distribution width Auto (RBC) [Ratio]Ordered By: Fernando Petersenaz on 76-75-1496Xbimdrcegga distribution width (RBC) [Ratio]14.3 %11.9-15.3FSelect Medical Specialty Hospital - ColumbusGlucose Glucometer (BldC) [Mass/Vol]Ordered By: Fernando Aguilarwestfields [facility] on [id number] [Mass/Vol]93 mg/dLCleveland Clinic FoundationComment on above:Random Glucose Reference Range is dependent on time and content of last meal. Glucose of more than 200 mg/dL in a nonstressed, ambulatory subject supports the diagnosis of Diabetes Mellitus.Glucose [Mass/volume] in Serum or PlasmaOrdered By: Fernando Rosenberg on 49-23-0661Hiduqgq [Mass/Vol]85 mg/tC03-053RcnbmofscCleveland Clinic FoundationComment on above:ADA recommended reference rangeRandom Glucose Reference Range is dependent on time and content of last meal. Glucose of more than 200 mg/dL in a nonstressed, ambulatory subject supports the diagnosisof Diabetes Mellitus.Hematocrit Auto (Bld) [Volume fraction]Ordered By: Fernando Rosenberg on 48-62-8326Sbpuahgcoe (Bld) [Volume fraction]31.5 %Low 34.0-46.4FSelect Medical Specialty Hospital - ColumbusHemoglobin [Mass/volume] in Blood Ordered By: Fernando Rosenberg on 15-51-2187Uvozvwiycp (Bld) [Mass/Vol]10.4 g/dLLow11.8-15.4FSelect Medical Specialty Hospital - ColumbusLeukocytes [#/volume] corrected for nucleated erythrocytes in Blood by Automated counOrdered By: Fernando Rosenberg on 49-42-5937DDP corrected for nucl RBC Auto (Bld) [#/Vol]4.8 10*3/uL 3.8-11.6FSelect Medical Specialty Hospital - ColumbusLymphocytes Auto (Bld) [#/Vol]Ordered By: Fernando Rosenberg on 74-30-8511Rpjdafbzzee (Bld) [#/Vol]2.1 10*3/uL 1.00-4.8[facility] FoundationLymphocytes/100 WBC Auto (Bld)Ordered By: Fernando Rosenberg on 60-22-5177Kqwhmaaaymo/100 WBC (Bld)43.2 %.[facility] Auto (RBC) [Entitic mass]Ordered By: Fernando Rosenberg on 93-21-4409KSJ (RBC) [Entitic mass]30.1 pg24.7-34.3FUpper [facility] Auto (RBC) [Mass/Vol]Ordered By: Fernando Rosenberg on 49-93-1329OFHR (RBC) [Mass/Vol]33.2 g/dL32.0-35.0[facility] FoundationMCV Auto (RBC) [Entitic vol]Ordered By: Fernando Rosenberg on 10-02-2023 MCV (RBC) [Entitic vol]90.7 jK94-407CefsinbvpCleveland Clinic FoundationMonocytes Auto (Bld) [#/Vol]Ordered By: Fernando Rosenberg on 97-82-7149Ujmlvdicb (Bld) [#/Vol]0.3 10*3/uL0.0-0.8[facility] FoundationMonocytes/100 WBC Auto (Bld)Ordered By: Fernando Rosenberg on 54-12-6654Ysrqhjzel/100 WBC (Bld)6.4 %. [facility] FoundationNeutrophils Auto (Bld) [#/Vol]Ordered By: Fernando Rosenberg on 44-65-0421Ypqwgytfdir (Bld) [#/Vol]2.2 10*3/uL1.8-7.7 [facility] FoundationNeutrophils/100 WBC Auto (Bld)Ordered By: Fernando Rosenberg on 87-44-9668Lpazysurzjw/100 WBC (Bld)46.2 %.[facility] FoundationNo Panel InformationOrdered By: Fernando Rosenberg on 46-45-8838Wrtdvovbd GFR (CKD-EPI)41.013 mL/MinCleveland Clinic Foundation Pharmacy Creatinine Clearance (Chem60.65[facility] Nucleated erythrocytes [Presence] in Blood by Automated countOrdered By: Fernando Rosenberg on 67-83-9655Skqivrwxr RBC Auto Ql (Bld)0.0 /100{WBC}0-0.5 [facility] FoundationPlatelet mean volume Auto (Bld) [Entitic vol] Ordered By: Fernando Rosenberg on 09-54-7152Mcqnuyxn mean volume (Bld) [Entitic vol]9.2 fL6.3-10.7FSelect Medical Specialty Hospital - ColumbusPlatelets Auto (Bld) [#/Vol] Ordered By: Fernando Rosenberg on 57-29-7479Nqubfdkti (Bld) [#/Vol]230 10*3/uL 150-450[facility] FoundationPotassium [Moles/volume] in Serum or PlasmaOrdered By: Fernando Rosenberg on 32-32-9757Disdtkffm [Moles/Vol]4.5 mmol/L3.5-5.1FSelect Medical Specialty Hospital - ColumbusRBC Auto (Bld) [#/Vol]Ordered By: Fernando Rosenberg on 41-91-4544XAY (Bld) [#/Vol]3.47 10*6/uLLow3.60-5.00 [facility] Springfielderum or plasma anion gap determinationOrdered By: Fernando Rosenberg on 96-25-5896Uzorr gap [Moles/Vol]9.6 mmol/L6.0-15.0 [facility] Springfieldodium [Moles/volume] in Serum or PlasmaOrdered By: Fernando Rosenberg on 77-56-6737Unqqba [Moles/Vol]142 mmol/P138-314 [facility] FoundationUrea nitrogen [Mass/volume] in Serum or Plasma Ordered By: Fernando Rosenberg on 76-32-7201Kgdb nitrogen [Mass/Vol]34 mg/dL High7-25[facility] FoundationWBC Auto (Bld) [#/Vol]Ordered By: Fernando Rosenberg on 47-73-6326MHG (Bld) [#/Vol]4.8 10*3/uL3.8-11.6FSelect Medical Specialty Hospital - ColumbusActivated partial thromboplastin time (aPTT) in platelet poor plasma by coagulation aOrdered By: Alma Deng on 36-20-0692lWVJ Coag (PPP) [Time]30.1 s25.1-36.5FSelect Medical Specialty Hospital - ColumbusComment on above:A hematocrit value greater than 55% may lead to inaccurate results in coagulation testing. Patientshaving hematocrit values >55% require a special collection tube for coagulation studies. Please contact the laboratory at [phone] for redraw instructions.Alanine aminotransferase [Enzymatic activity/volume] in Serum or PlasmaOrdered By: Alma Deng on 82-57-1233CIB [Catalytic activity/Vol]19 U/L7-52[facility] FoundationAlbumin [Mass/volume] in Serum or Plasma by Bromocresol green (BCG) dye binding methoOrdered By: Alma Deng on 30-78-2538Wpcdwxk BCG dye [Mass/Vol]3.9 g/dL3.5-5.7FSelect Medical Specialty Hospital - ColumbusAlkaline phosphatase [Enzymatic activity/volume] in Serum or PlasmaOrdered By: Alma Deng on 52-96-7571BOM [Catalytic activity/Vol]56 U/L 34-104[facility] FoundationAspartate aminotransferase [Enzymatic activity/volume] in Serum or PlasmaOrdered By: Alma Deng on 17-90-5286ULI [Catalytic activity/Vol]29 U/P02-43NopsnwrjwCleveland Clinic FoundationBacteria [Presence] in Urine by AutomatedOrdered By: Alma Deng on 59-37-8900Qqqotlbp Auto Ql (U)None seen [HPF]None SeenCleveland Clinic FoundationBilirubin Test strip Ql (U)Ordered By: Alma Deng on 63-59-6841Leajmfhhu Ql (U) NegativeNegativeCleveland Clinic FoundationBilirubin.total [Mass/volume] in Serum or PlasmaOrdered By: Alma Deng on 09-77-0769Mxgqafcaf [Mass/Vol] 0.3 mg/dL0.3-1.0[facility] FoundationColor Auto (U)Ordered By: Alma Deng on 53-14-9476Dglyv (U)ColorlessYellowCleveland Clinic FoundationCreatinine [Mass/volume] in UrineOrdered By: Alma Deng on 10-01-2023 Creatinine (U) [Mass/Vol]65.00 mg/dLCleveland Clinic FoundationComment on above:No reference range establishedEosinophils detection in urine sediment by Nava stainOrdered By: Alma Deng on 99-74-6270Fdbmmjjbnxp Nava stain Ql (Urine sed)0 %0-1FSelect Medical Specialty Hospital - ColumbusEpithelial cells.squamous [#/area] in Urine sediment by Automated countOrdered By: Alma Deng on 15-05-6389Vrzbdmxbyx cells.squamous Auto (Urine sed) [#/Area]N/AFSelect Medical Specialty Hospital - ColumbusErythrocytes [#/area] in Urine sediment by Automated countOrdered By: Alma Deng on 72-90-8726WAU Auto (Urine sed) [#/Area]None seen [HPF]0-4FSelect Medical Specialty Hospital - ColumbusGlobulin Calc (S) [Mass/Vol] Ordered By: Amla Deng on 65-13-2580Odtjrtmy (S) [Mass/Vol]2.2 g/dLCleveland Clinic FoundationGlucose [Mass/volume] in Urine by Test stripOrdered By: Alma Deng on 38-54-3536Wpyfxyc Test strip (U) [Mass/Vol]Normal mg/dLNormal [facility] FoundationHemoglobin Test strip Ql (U)Ordered By: Alma Deng on 59-11-7258Xtleuwlieb Ql (U)NegativeNegativeCleveland Clinic FoundationHyaline casts [#/area] in Urine sediment by Automated countOrdered By: Alma Deng on 25-01-0190Fygnitt casts Auto (Urine sed) [#/Area]0-8 [LPF]0-8 [facility] FoundationINR in Platelet poor plasma by Coagulation assayOrdered By: Alma Deng on 06-28-2670HLT Coag (PPP) [Relative time]1.1 {INR}[facility] FoundationComment on above:INR Therapeutic Range A) Pre- and Peroperative OAT started two weeks before surgery. NOT HIP SURGERY: 1.5 - 2.5 HIP SURGERY: 2 - 3B) Primary and secondary prevention of venous THROMBOSIS: 2 - 3C) Active venous thrombosis, pulmonary embolismand prevention of recurrent venous thrombosis: 2 - 3D) Prevention of arterial thromboembolismincluding patients with mechanical heart valves: 3 - 4.5Ketones Test strip Ql (U)Ordered By: Alma Deng on 53-33-5821Zimjfar Ql (U)Negative NegativeCleveland Clinic FoundationLeukocyte esterase [Presence] in Urine by Test stripOrdered By: Alma Deng on 36-38-7695Ppjmipbmb esterase Test strip Ql (U)1+HighNegMarietta Osteopathic ClinicLeukocytes [#/area] in Urine sediment by Automated countOrdered By: Alma Huyuche on 70-01-8489KON Auto (Urine sed) [#/Area]3-4 [HPF]0-4FSelect Medical Specialty Hospital - ColumbusMucus [Presence] in Urine by AutomatedOrdered By: Alma Deng on 70-94-0085Vdrwp Auto Ql (U)Rare [LPF][facility] FoundationNitrite Test strip Ql (U) Ordered By: Alma Deng on 03-82-0409Slksdcw Ql (U)NegativeNegMarietta Osteopathic ClinicNo Panel InformationOrdered By: Fernando Rosenberg on 12-91-7783Lgcsknv Glucose CommentGlu2: cleaned meterCleveland Clinic FoundationProtein Test strip (U) [Mass/Vol]Ordered By: Alma Deng on 10-01-2023 Protein (U) [Mass/Vol]NegativeNegMarietta Osteopathic ClinicProtein [Mass/volume] in Serum or PlasmaOrdered By: Alma Deng on 13-21-4066Mitoonw [Mass/Vol]6.1 g/dLLow6.4-8.9[facility] FoundationProthrombin time (PT)Ordered By: Alma Deng on 11-19-6537KV Coag (PPP) [Time]12.2 s9.0-12.9 [facility] FoundationComment on above:A hematocrit value greater than 55% may lead to inaccurate results in coagulation testing. Patientshaving hematocrit values >55% require a special collection tube for coagulation studies. Please contact the laboratory at [phone] for redraw instructions. Serum or plasma albumin/globulin mass ratioOrdered By: Alma Deng on 09-56-3459Bftfysr/Globulin [Mass ratio]1.8 {ratio}[facility] Springfieldodium [Moles/volume] in UrineOrdered By: Alma Deng on 10-01-2023 Sodium (U) [Moles/Vol]54.0 mmol/LFSelect Medical Specialty Hospital - ColumbusComment on above:No reference range establishedSpecific gravity Test strip (U) [Rel density]Ordered By: Mayrasnehamariana Sonuche on 58-33-7501Xpqcmpjm gravity (U) [Rel density]1.0091.001-1.030[facility] FoundationUrine appearanceOrdered By: Alma Barrazabonnie on 39-96-0514Fvfanaektw (U)ClearClearFSelect Medical Specialty Hospital - ColumbusUrobilinogen Test strip (U) [Mass/Vol]Ordered By: Mayrasnehamariana Barrazabonnie on 83-80-5781Qrjieagldlcn (U) [Mass/Vol]Normal mg/dLNormalCleveland Clinic FoundationpH Test strip (U)Ordered By: Alma Christibonnie on 36-23-8830eL (U)5.5 [pH]5.0-9.0[facility] FoundationAlbumin [Mass/volume] in Serum or Plasma by Bromocresol green (BCG) dye binding methoOrdered By: Halle Mac on 64-98-8400Fyaaoic BCG dye [Mass/Vol]4.0 g/dL3.5-5.7FSelect Medical Specialty Hospital - ColumbusAutomated erythrocytes count in urine sediment (number/area)Ordered By: Halle Mac on 16-70-9175VTS Auto (Urine sed) [#/Area]None seen [HPF]0-4 [facility] FoundationAutomated leukocytes count in urine sediment (number/area)Ordered By: Halle Mac on 75-18-4281PAV Auto (Urine sed) [#/Area] 3-4 [HPF]0-4FSelect Medical Specialty Hospital - ColumbusBilirubin Test strip Ql (U)Ordered By: Halle Mac on 45-82-6963Ghvlmbnlg Ql (U)NegativeNegativeCleveland Clinic FoundationCalcium [Mass/volume] in Serum or PlasmaOrdered By: Halle Mac on 97-95-7257Lweaxbg [Mass/Vol]9.3 mg/dL8.6-10.3FSelect Medical Specialty Hospital - ColumbusCarbon dioxide, total [Moles/volume] in Serum or PlasmaOrdered By: Halle Mac on 13-63-1402UG8 [Moles/Vol]24.8 mmol/L21.0-31.0[facility] FoundationChloride [Moles/volume] in Serum or PlasmaOrdered By: Halle Mac on 01-53-2446Hblfzktb [Moles/Vol]110 mmol/MQzlc36-561BtpdduuaoCleveland Clinic FoundationColor Auto (U)Ordered By: Halle Mac on 59-46-4445Bggwb (U)YellowYellow [facility] FoundationCreatinine [Mass/volume] in Serum or Plasma Ordered By: Halle Mac on 03-17-4949Klfmvxocgc [Mass/Vol]1.59 mg/dLHigh 0.60-1.20[facility] FoundationCreatinine [Mass/volume] in Urine Ordered By: Halle Mac on 98-56-7828Cttzpjvlxt (U) [Mass/Vol]92.0 mg/dL [facility] FoundationComment on above:No reference range established Erythrocyte distribution width Auto (RBC) [Ratio]Ordered By: Halle Mac on 18-76-4821Ujuqlydkufi distribution width (RBC) [Ratio]15.1 %11.9-15.3FSelect Medical Specialty Hospital - ColumbusFerritin [Mass/volume] in Serum or PlasmaOrdered By: Halle Mac on 73-86-1805Vxznrsfp [Mass/Vol]62.9 ng/mL11.0-306.8[facility] FoundationFolate [Mass/volume] in Serum or PlasmaOrdered By: Halle Mac on 37-11-2849Unbbqa [Mass/Vol]15.7 ng/mL>5.9[facility] Comment on above:Folate reference range: >5.9 ng/mlThe WHO technical consultation on folate and vitamin d52ybmlmhegdzqm has determined that folate concentrations lessthan 4 ng/ml are considered deficient.Glucose [Mass/volume] in Serum or PlasmaOrdered By: Halle Mac on 57-05-4490Rfcibyt [Mass/Vol]94 mg/wU86-047OphikcipfCleveland Clinic FoundationComment on above:ADA recommended reference rangeRandom Glucose Reference Range is dependent on time and content of last meal. Glucose of more than 200 mg/dL in a nonstressed, ambulatory subject supports the diagnosisof Diabetes Mellitus.Hematocrit Auto (Bld) [Volume fraction]Ordered By: Halle Mac on 85-74-8750Frinxedkjb (Bld) [Volume fraction]35.0 %34.0-46.4FSelect Medical Specialty Hospital - ColumbusHemoglobin [Mass/volume] in BloodOrdered By: Halle Mac on 90-90-8533Xijgmlwebn (Bld) [Mass/Vol]11.5 g/dLLow11.8-15.4FSelect Medical Specialty Hospital - ColumbusIron [Mass/volume] in Serum or PlasmaOrdered By: Halle Mac on 19-90-7099Gmlf [Mass/Vol]75 ug/jQ22-047GkajhkqinCleveland Clinic FoundationIron binding capacity [Mass/volume] in Serum or PlasmaOrdered By: Halle Mac on 76-32-5683Scvo binding capacity [Mass/Vol]480 ug/cOHxtl748-264BkgwcwogrCleveland Clinic Foundation Iron saturation [Mass Fraction] in Serum or PlasmaOrdered By: Halle Mac on 66-32-5372Yyyl saturation [Mass fraction]15.6 %Jcl82-55FfpnrvuggCleveland Clinic FoundationKetones Auto test strip (U) [Mass/Vol]Ordered By: Halle Mac on 64-55-0952Pjdwqtk (U) [Mass/Vol]NegativeNegativeCleveland Clinic FoundationLaboratory - UrinalysisOrdered By: Halle Mac on 20-37-2242Azhgivl casts LM Ql (Urine sed)None seen [LPF]0-8[facility] FoundationLeukocytes [#/volume] corrected for nucleated erythrocytes in Blood by Automated coun Ordered By: Halle Mac on 27-92-8317OPU corrected for nucl RBC Auto (Bld) [#/Vol]4.0 10*3/uL3.8-11.6FGreen Cross Hospital Auto (RBC) [Entitic mass]Ordered By: Halle Mac on 95-90-4518RTN (RBC) [Entitic mass]29.6 pg24.7-34.3FRiverview Health InstituteHC Auto (RBC) [Mass/Vol]Ordered By: Halle Mac on 77-70-8209BBXI (RBC) [Mass/Vol]32.9 g/dL32.0-35.0[facility] FoundationMCV Auto (RBC) [Entitic vol]Ordered By: Halle Mac on 00-66-4845TZO (RBC) [Entitic vol]90.0 xZ82-990LhsvzbbcoCleveland Clinic Foundation Magnesium [Mass/volume] in Serum or PlasmaOrdered By: Halle Mac on 08-10-2023 Magnesium [Mass/Vol]1.9 mg/dL1.9-2.7FSelect Medical Specialty Hospital - ColumbusNitrite Test strip Ql (U)Ordered By: Halle Mac on 85-05-1945Nymlqso Ql (U)Negative NegativeCleveland Clinic FoundationNo Panel InformationOrdered By: Halle Mac on 42-09-9213Uhftfqgcy GFR (CKD-EPI)38.856 mL/MinCleveland Clinic FoundationPharmacy Creatinine Clearance (ChemN/City HospitalParathyrin.intact [Mass/volume] in Serum or PlasmaOrdered By: Halle Mac on 96-03-2401Uodjkaraju.intact [Mass/Vol]38.7 pg/gD01-85ZmzfncnncCleveland Clinic FoundationPhosphate [Mass/volume] in Serum or PlasmaOrdered By: Halle Mac on 23-78-3233Twaemhpzc [Mass/Vol]3.7 mg/dL2.5-4.5FSelect Medical Specialty Hospital - ColumbusPlatelet mean volume Auto (Bld) [Entitic vol]Ordered By: Halle Mac on 59-51-8922Jxolueli mean volume (Bld) [Entitic vol]9.8 fL6.3-10.7FSelect Medical Specialty Hospital - ColumbusPlatelets Auto (Bld) [#/Vol]Ordered By: Halle Mac on 02-37-7786Khomxymjp (Bld) [#/Vol]217 10*3/uB587-595OvfvvbgbpCleveland Clinic FoundationPotassium [Moles/volume] in Serum or PlasmaOrdered By: Halle Mac on 95-27-3470Spkjtcsku [Moles/Vol]4.5 mmol/L3.5-5.1FSelect Medical Specialty Hospital - ColumbusProtein Auto test strip (U) [Mass/Vol]Ordered By: Halle Mac on 94-76-4994Jpsfngn (U) [Mass/Vol]NegativeNegativeCleveland Clinic FoundationProtein [Mass/volume] in UrineOrdered By: Halle Mac on 08-10-2023 Protein (U) [Mass/Vol]mg/dL0-9[facility] FoundationRBC Auto (Bld) [#/Vol]Ordered By: Halle Mac on 48-46-9371MTU (Bld) [#/Vol]3.89 10*6/uL 3.60-5.00[facility] Springfielderum or plasma anion gap determinationOrdered By: Halle Mac on 41-73-0463Bdicf gap [Moles/Vol]11.7 mmol/L6.0-15.0[facility] Springfieldodium [Moles/volume] in Serum or PlasmaOrdered By: Halle Mac on 28-91-0258Ejnufz [Moles/Vol]142 mmol/L034-770 [facility] Springfieldpecific gravity Auto test strip (U) [Rel density]Ordered By: Halle Mac on 13-36-0018Nizojblc gravity (U) [Rel density] 1.0151.001-1.030[facility] Springfieldquamous epithelial cells detection in urine sediment by light microscopyOrdered By: Halle Mac on 98-36-3777Zeyyqnfslg cells.squamous LM Ql (Urine sed)None seen [HPF]0-2FSelect Medical Specialty Hospital - ColumbusTransferrin [Mass/volume] in Serum or PlasmaOrdered By: Halle Mac on 14-01-4744Rkhgtiferxk [Mass/Vol]343 mg/zM173-356QrdnkbjtkCleveland Clinic FoundationUrate [Mass/volume] in Serum or PlasmaOrdered By: Halle Mac on 11-90-0603Asbdc [Mass/Vol]8.6 mg/dLHigh2.3-6.6FSelect Medical Specialty Hospital - ColumbusUrea nitrogen [Mass/volume] in Serum or PlasmaOrdered By: Halle Mac on 89-47-5845Uzff nitrogen [Mass/Vol]32 mg/dLHigh7-25[facility] FoundationUrine bacteria detection by automated methodOrdered By: Halle Mac on 16-72-8819Qqkbyhig Auto Ql (U)None seenNone SeenCleveland Clinic FoundationUrine clarity by refractometry automatedOrdered By: Halle Mac on 32-50-3497Egamvtl Refractometry automated (U)ClearClearFSelect Medical Specialty Hospital - ColumbusUrine glucose measurement by automated test strip (mass/volume) Ordered By: Halle Mac on 94-33-3589Cxptuvt Auto test strip (U) [Mass/Vol] Normal mg/dLNormalCleveland Clinic FoundationUrine hemoglobin detection by automated test stripOrdered By: Halle Mac on 23-40-0229Nmdsqhcjgi Auto test strip Ql (U)NegativeNegMarietta Osteopathic ClinicUrine leukocyte esterase detection by automated test stripOrdered By: Halle Mac on 08-10-2023 Leukocyte esterase Auto test strip Ql (U)2+HighNegMarietta Osteopathic ClinicUrine protein/creatinine ratioOrdered By: Halle Mac on 05-74-4604Xxiritl/Creatinine (U) [Ratio]TNProtestant Hospital Comment on above:Test not performedUrobilinogen Auto test strip (U) [Mass/Vol] Ordered By: Halle Mac on 80-96-8369Tssetlbrfoyl (U) [Mass/Vol]Normal mg/dL NormalCleveland Clinic FoundationVitamin B12 ser/plasOrdered By: Halle Mac on 28-15-9604Shmgoonhn (Vitamin B12) [Mass/Vol]164 pg/hAQfb159-655 [facility] FoundationVitamin D+Metabolites [Mass/volume] in Serum or PlasmaOrdered By: Halle Mac on 19-55-4144Btkokol D+Metabolites [Mass/Vol] 22.4 ng/jBRpd88-768FvakqtzzhCleveland Clinic FoundationComment on above:VITAMIN D STATUS 25(OH)VITAMIN D RANGE (ng/mL) Deficient <20 Insufficient 20 to <10Kneyxrhper31 to 100Reference: Karen MF,Nicole SCOTT, Ed LI, et al. Evaluation,treatment, and prevention of vitamin D deficiency; an Endocrine Society clinical practice guideline. JCEM. 2010; 96(7):1911-30.pH Auto test strip (U)Ordered By: Halle Mac on 34-34-1139gW (U)5.5 [pH]5.0-9.0[facility] FoundationValproate [Mass/volume] in Serum or PlasmaOrdered By: Fauzia Huffman on 52-85-2319Sxaxluxaz [Mass/Vol]14.5 ug/mL50.0-100.0[facility] FoundationComment on above:Last dose: -Alanine aminotransferase [Enzymatic activity/volume] in Serum or PlasmaOrdered By: Halle Mac on 55-93-2024RZK [Catalytic activity/Vol]16 U/L7-52[facility] FoundationAlbumin [Mass/volume] in Serum or Plasma by Bromocresol green (BCG) dye binding methoOrdered By: Halle Mac on 65-17-5167Jhwvxcc BCG dye [Mass/Vol]4.3 g/dL3.5-5.7FSelect Medical Specialty Hospital - ColumbusAlkaline phosphatase [Enzymatic activity/volume] in Serum or PlasmaOrdered By: Halle Mac on 34-32-5062BTQ [Catalytic activity/Vol]61 U/C78-681JeplgocpzCleveland Clinic FoundationAspartate aminotransferase [Enzymatic activity/volume] in Serum or PlasmaOrdered By: Halle Mac on 48-02-8947RGC [Catalytic activity/Vol]23 U/H24-75AfiegoblzCleveland Clinic FoundationAutomated erythrocytes count in urine sediment (number/area) Ordered By: Halle Mac on 60-37-3864FGP Auto (Urine sed) [#/Area]3-4 [HPF]0-4 [facility] FoundationAutomated leukocytes count in urine sediment (number/area)Ordered By: Halle Mac on 37-37-5654AEV Auto (Urine sed) [#/Area] 10-19 [HPF]0-4FSelect Medical Specialty Hospital - ColumbusBilirubin Test strip Ql (U) Ordered By: Halle Mac on 54-40-1990Gpojcsqdt Ql (U)2+NegativeCleveland Clinic FoundationBilirubin.total [Mass/volume] in Serum or PlasmaOrdered By: Halle Mac on 42-34-7064Gaiqpxwds [Mass/Vol]0.5 mg/dL0.3-1.0[facility] FoundationCalcium [Mass/volume] in Serum or PlasmaOrdered By: Halle Mac on 40-99-5302Yihvajp [Mass/Vol]9.3 mg/dL8.6-10.3FSelect Medical Specialty Hospital - ColumbusCarbon dioxide, total [Moles/volume] in Serum or PlasmaOrdered By: Halle Mac on 13-15-1375LH4 [Moles/Vol]28.0 mmol/L21.0-31.0[facility] FoundationCasts typing in urine sediment by light microscopyOrdered By: Halle Mac on 90-20-6770Gyqir LM Nom (Urine sed)None seen [LPF]None Seen [facility] FoundationChloride [Moles/volume] in Serum or Plasma Ordered By: Halle Mac on 82-72-8902Nntrsaou [Moles/Vol]107 mmol/L98-107 [facility] FoundationColor Auto (U)Ordered By: Halle Mac on 19-78-1394Pkdch (U)Dark yellowYellowCleveland Clinic FoundationCreatinine [Mass/volume] in Serum or PlasmaOrdered By: Halle Mac on 22-06-1331Kruyzolkun [Mass/Vol]1.52 mg/dL0.60-1.20[facility] FoundationCreatinine [Mass/volume] in UrineOrdered By: Halle Mac on 11-06-8461Khhfdszrsi (U) [Mass/Vol]mg/dL11.0-20.0[facility] FoundationErythrocyte distribution width Auto (RBC) [Ratio]Ordered By: Halle Mac on 05-17-2023 Erythrocyte distribution width (RBC) [Ratio]13.4 %11.9-15.3FSelect Medical Specialty Hospital - ColumbusFerritin [Mass/volume] in Serum or PlasmaOrdered By: Halle Mac on 61-60-0966Ugwegnso [Mass/Vol]51.8 ng/mL11.0-306.8[facility] FoundationFine granular cast count in urine sediment by microscopy (number/low power field )Ordered By: Halle Mac on 97-78-6088Esbh Granular Casts LM.LPF (Urine sed) [#/Area]5-9 [LPF]0-1FSelect Medical Specialty Hospital - ColumbusGlobulin Calc (S) [Mass/Vol]Ordered By: Halle Mac on 72-98-7527Ckydxddh (S) [Mass/Vol]2.3 g/dL [facility] FoundationGlucose [Mass/volume] in Serum or PlasmaOrdered By: Halle Mac on 17-28-6921Dmzyfuc [Mass/Vol]123 mg/fT17-615YaopjytaeCleveland Clinic FoundationComment on above:ADA recommended reference rangeRandom Glucose Reference Range is dependent on time and content of last meal. Glucose of more than 200 mg/dL in a nonstressed, ambulatory subject supports the diagnosisof Diabetes Mellitus.Hematocrit Auto (Bld) [Volume fraction]Ordered By: Halle Mac on 76-02-3929Dnmuckoppc (Bld) [Volume fraction]36.1 %34.0-46.4 [facility] FoundationHemoglobin [Mass/volume] in BloodOrdered By: Halle Mac on 69-77-6912Vifibxosxj (Bld) [Mass/Vol]11.8 g/dL11.8-15.4FSelect Medical Specialty Hospital - ColumbusIron [Mass/volume] in Serum or PlasmaOrdered By: Halle Mac on 34-27-2949Lvdm [Mass/Vol]57 ug/cE30-639ZxjdndjepCleveland Clinic FoundationIron binding capacity [Mass/volume] in Serum or PlasmaOrdered By: Halle Mac on 47-55-8451Iupg binding capacity [Mass/Vol]538 ug/lX811-506FxskrcugsCleveland Clinic FoundationIron saturation [Mass Fraction] in Serum or PlasmaOrdered By: Halle Mac on 99-96-2740Xcrh saturation [Mass fraction]10.6 %20-50 [facility] FoundationKetones Auto test strip (U) [Mass/Vol]Ordered By: Halle Mac on 92-19-8554Gkzucex (U) [Mass/Vol]1+NegativeCleveland Clinic FoundationLaboratory - UrinalysisOrdered By: Halle Mac on 05-17-2023 Hyaline casts LM Ql (Urine sed)None seen [LPF]0-8[facility] FoundationLeukocytes [#/volume] corrected for nucleated erythrocytes in Blood by Automated counOrdered By: Halle Mac on 82-09-2975DXB corrected for nucl RBC Auto (Bld) [#/Vol]5.5 10*3/uL3.8-11.6FRiverview Health InstituteH Auto (RBC) [Entitic mass]Ordered By: Halle Mac on 09-67-0763ZRY (RBC) [Entitic mass]29.4 pg24.7-34.3FSelect Medical Specialty Hospital - ColumbusMCHC Auto (RBC) [Mass/Vol] Ordered By: Halle Mac on 83-90-3207BEHH (RBC) [Mass/Vol]32.8 g/dL32.0-35.0 [facility] FoundationMCV Auto (RBC) [Entitic vol]Ordered By: Halle Mac on 28-26-5708HSE (RBC) [Entitic vol]89.4 qQ30-519IpgxyiwyfCleveland Clinic FoundationMagnesium [Mass/volume] in Serum or PlasmaOrdered By: Halle Mac on 36-42-3177Lenjwiqjp [Mass/Vol]2.0 mg/dL1.9-2.7FSelect Medical Specialty Hospital - ColumbusMucus LM Ql (Urine sed)Ordered By: Halle Mac on 94-09-1386Quips Ql (Urine sed)3+ [LPF][facility] FoundationNitrite Test strip Ql (U) Ordered By: Halle Mac on 44-06-8857Dhgmgbs Ql (U)NegativeNegativeCleveland Clinic FoundationNo Panel InformationOrdered By: Halle Mac on 79-31-6496Djavsuxxh GFR (CKD-EPI)41.013 mL/MinCleveland Clinic Foundation Pharmacy Creatinine Clearance (ChemN/AFSelect Medical Specialty Hospital - Columbus Parathyrin.intact [Mass/volume] in Serum or PlasmaOrdered By: Halle Mac on 04-33-5453Msskkuxqvq.intact [Mass/Vol]36.3 pg/zS92-20BwofcryzuCleveland Clinic FoundationPhosphate [Mass/volume] in Serum or PlasmaOrdered By: Halle Mac on 01-91-6235Cwcnlalug [Mass/Vol]4.4 mg/dL2.5-4.5FSelect Medical Specialty Hospital - Columbus Platelet mean volume Auto (Bld) [Entitic vol]Ordered By: Halle Mac on 82-01-7010Ccttwqjv mean volume (Bld) [Entitic vol]9.5 fL6.3-10.7FSelect Medical Specialty Hospital - ColumbusPlatelets Auto (Bld) [#/Vol]Ordered By: Halle Mac on 88-13-4445Roqyprarn (Bld) [#/Vol]233 10*3/qD819-853PofpfcrkiCleveland Clinic FoundationPotassium [Moles/volume] in Serum or PlasmaOrdered By: Halle Mac on 19-68-0993Dlwwucuhi [Moles/Vol]3.8 mmol/L3.5-5.1FSelect Medical Specialty Hospital - ColumbusProtein Auto test strip (U) [Mass/Vol]Ordered By: Halle Mac on 18-47-2477Qhtnmlf (U) [Mass/Vol]30 mg/dLNegativeCleveland Clinic FoundationProtein [Mass/volume] in Serum or PlasmaOrdered By: Halle Mac on 71-51-7914Hzqdrmy [Mass/Vol]6.6 g/dL6.4-8.9[facility] Protein [Mass/volume] in UrineOrdered By: Halle Mac on 64-06-0679Tlmvyua (U) [Mass/Vol]35 mg/dL0-9[facility] FoundationRBC Auto (Bld) [#/Vol] Ordered By: Halle Mac on 49-80-5627BLL (Bld) [#/Vol]4.03 10*6/uL3.60-5.00 [facility] Springfielderum or plasma albumin/globulin mass ratio Ordered By: Halle Mac on 22-58-3523Wbakjjp/Globulin [Mass ratio]1.9 {ratio} [facility] Springfielderum or plasma anion gap determinationOrdered By: Halle Mac on 25-30-0538Mopjg gap [Moles/Vol]10.8 mmol/L6.0-15.0[facility] Springfieldodium [Moles/volume] in Serum or PlasmaOrdered By: Halle Mac on 29-18-5341Szqatu [Moles/Vol]142 mmol/A645-340IrkxwvyyzKettering Health Springfieldpecific gravity Auto test strip (U) [Rel density]Ordered By: Halle Mac on 80-09-0968Gsfkqkjy gravity (U) [Rel density]1.0251.001-1.030[facility] Health Springfieldquamous epithelial cells detection in urine sediment by light microscopyOrdered By: Halle Mac on 08-23-4656Qzpystbqjf cells.squamous LM Ql (Urine sed)3-4 [HPF]0-2FSelect Medical Specialty Hospital - ColumbusTransferrin [Mass/volume] in Serum or PlasmaOrdered By: Halle Mac on 05-17-2023 Transferrin [Mass/Vol]384 mg/xJ392-263KewnlvsklCleveland Clinic FoundationUrate [Mass/volume] in Serum or PlasmaOrdered By: Halle Mac on 24-47-4058Yibue [Mass/Vol]7.3 mg/dL2.3-6.6FSelect Medical Specialty Hospital - ColumbusUrea nitrogen [Mass/volume] in Serum or PlasmaOrdered By: Halle Mac on 49-08-4253Gqef nitrogen [Mass/Vol]26 mg/dL7-25[facility] FoundationUrine bacteria detection by automated methodOrdered By: Halle Mac on 71-84-7958Wclddkgj Auto Ql (U)None seenNone SeenCleveland Clinic FoundationUrine clarity by refractometry automatedOrdered By: Halle Mac on 38-95-2437Qzdhwrv Refractometry automated (U)CloudyCleSt. Rita's HospitalUrine culture routineOrdered By: Halle Mac on 36-21-3339Zwhfphsq identified Cx Nom (U)2 DaysCleveland Clinic FoundationUrine glucose measurement by automated test strip (mass/volume)Ordered By: Halle Mac on 01-17-2141Mksbpyg Auto test strip (U) [Mass/Vol]Normal mg/dLNormalCleveland Clinic FoundationUrine hemoglobin detection by automated test stripOrdered By: Halle Mac on 13-75-2983Bjvhivttwd Auto test strip Ql (U)NegativeNegativeCleveland Clinic FoundationUrine leukocyte esterase detection by automated test stripOrdered By: Halle Mac on 55-43-3393Cegewacrn esterase Auto test strip Ql (U)1+ NegativeCleveland Clinic FoundationUrine protein/creatinine ratioOrdered By: Halle Mac on 41-85-7927Dyvsgsf/Creatinine (U) [Ratio]TNPCleveland Clinic FoundationComment on above:Test not performedUrobilinogen Auto test strip (U) [Mass/Vol]Ordered By: Halle Mac on 71-46-9966Njrmqhesjmew (U) [Mass/Vol]Normal mg/dLNormMemorial Health SystemValproate [Mass/volume] in Serum or PlasmaOrdered By: Fauzia Huffman on 35-91-2030Raudpjjzz [Mass/Vol]24.0 ug/mL50.0-100.0C[facility] FoundationComment on above: Last dose: -Vitamin D+Metabolites [Mass/volume] in Serum or PlasmaOrdered By: Halle Mac on 64-56-5467Iyydpge D+Metabolites [Mass/Vol]24.3 ng/iD64-780 [facility] FoundationComment on above:VITAMIN D STATUS 25(OH)VITAMIN D RANGE (ng/mL) Deficient <20 Insufficient 20 to <09Olyqgltbsv00 to 100Reference: Karen MF,Nicole SCOTT, Ed [place], et al. Evaluation,treatment, and prevention of vitamin D deficiency; an Endocrine Society clinical practice guideline. JCEM. 2010; 96(7):1911-30.Yeast detection in urine sediment by light microscopyOrdered By: Halle Mac on 72-63-5324Sdmmi LM Ql (Urine sed)None seen [HPF]None SeenCleveland Clinic FoundationpH Auto test strip (U)Ordered By: Halle Mac on 55-55-3375wH (U) 5.0 [pH]5.0-9.0[facility] FoundationProvider Orderson 05-09-2023 Provider [id number]#1.00OTGTSelect Medical Cleveland Clinic Rehabilitation Hospital, AvonBNPon 54-90-0385Qihmfteoeke peptide B (Bld) [Mass/Vol]391.0 pg/mLNormal<=900.0The [facility] HospitalComment on above:Performed By: #### LIPID, BMP #### [facility] [address] [place] [address] Dr. Jag Burris AUTO DIFFon 34-83-0560SUSX #0.1 103/ulNormal0.0-0.1The [facility] HospitalComment on above:Performed By: #### LIPID, BMP #### [facility] [address] [place] [address] Dr. Jag WaldropBasophils/100 WBC (Bld)1.4 %Normal0.2-2.0The [facility] Comment on above:Performed By: #### LIPID, BMP #### [facility] [address] [place] [address] Dr. Jag Aguero #0.1 103/ulNormal0.0-0.7The [facility] HospitalComment on above: Performed By: #### LIPID, BMP #### [facility] [address] [place] [address] Dr. Jag Hartosinophils/100 WBC (Bld)1.6 %Normal0.9-7.0The [facility] Comment on above:Performed By: #### LIPID, BMP #### [facility] [address] [place] [address] Dr. Jag Hartrythrocyte distribution width (RBC) [Ratio]15.0 %Wdqjvz69.0-15.0 The [facility] HospitalComment on above:Performed By: #### LIPID, BMP #### [facility] [address] [place] [address] Dr. Jag WaldropHematocrit (Bld) [Volume fraction]37.2 %Vdgdwf01.0-48.0The [facility] HospitalComment on above:Performed By: #### LIPID, BMP #### [facility] [address] [place] [address] Dr. Jag WaldropHemoglobin (Bld) [Mass/Vol]11.6 g/dLCritically low12.0-16.0The [facility] HospitalComment on above:Performed By: #### LIPID, BMP #### [facility] [address] [address] [address] Jag Del Real #0.01 10e3/ulNormal0.00-0.03The [facility] HospitalComment on above:Performed By: #### LIPID, BMP #### [facility] [address] [address] [address] Jag Del Real %0.2 %Normal0.0-0.5The [facility] HospitalComment on above: Performed By: #### LIPID, BMP #### [facility] [address] [place] [address] Dr. Jag Boo #1.9 103/ulNormal1.2-3.8The [facility] HospitalComment on above:Performed By: #### LIPID, BMP #### [facility] [address] [place] [address] Dr. Jag Mccurdyhocytes/100 WBC (Bld)39.1 %Dhzyss36.5-60.0The [facility] HospitalComment on above:Performed By: #### LIPID, BMP #### [facility] [address] [place] [address] Dr. Jag CaputoUAL DIFF REQNONormalThe [facility] HospitalComment on above: Performed By: #### LIPID, BMP #### [facility] [address] [place] [address] Dr. Jag Mc (RBC) [Entitic mass]27.5 cxWlehnj50.7-34.0The [facility] HospitalComment on above:Performed By: #### LIPID, BMP #### [facility] [address] [place] [address] Dr. Jag Lujan (RBC) [Mass/Vol]31.2 g/bLMjgpur80.9-35.2The [facility] HospitalComment on above:Performed By: #### LIPID, BMP #### [facility] [address] [place] [address] Dr. Jag Lujan (RBC) [Entitic vol]88.2 eIWeyepg64.0-99.0The [facility] HospitalComment on above:Performed By: #### LIPID, BMP #### [facility] [address] [place] [address] Dr. Jag Meléndez #0.3 103/ulNormal0.3-0.8The [facility] HospitalComment on above:Performed By: #### LIPID, BMP #### [facility] [address] [place] [address] Dr. Jag Ayonocytes/100 WBC (Bld)6.5 %Normal1.7-12.0The [facility] Comment on above:Performed By: #### LIPID, BMP #### [facility] [address] [place] [address] #2.5 103/ulNormal1.4-6.5The [facility] HospitalComment on above:Performed By: #### LIPID, BMP #### [facility] [address] [place] [address] Dr. Jag Hawkinsutrophils/100 WBC (Bld)51.2 %Kluojy72.0-75.0The [facility] HospitalComment on above:Performed By: #### LIPID, BMP #### [facility] [address] [place] [address] Dr. Jag Cárdenas mean volume (Bld) [Entitic vol]10.5 fLNormal9.5-13.5The [facility] HospitalComment on above:Performed By: #### LIPID, BMP #### [facility] [address] [place] [address] Dr. Jag GonzalezT272 103/ooSvxqpe042-123Fyd [facility] HospitalComment on above: Performed By: #### LIPID, BMP #### [facility] [address] [place] [address] Dr. Jag EspinoC4.22 106/ulNormal4.20-5.40The [facility] HospitalComment on above:Performed By: #### LIPID, BMP #### [facility] [address] [place] [address] Dr. Jag WaldropWBC4.9 103/ulNormal4.0-11.0The [facility] CenterComment on above: Performed By: #### LIPID, BMP #### [facility] [address] [place] [address] Dr. Jag Zelaya URINE PROFILEon 57-08-8214Zsahtoweq Ql (U)NegativeNormal NEGATIVEThe [facility] Medical CenterComment on above:Performed By: #### ERUR #### [facility] [address] [address] [address] Jag WaldropClarity (U)CLEARNormalCLEARThe [facility] Medical CenterComment on above: Performed By: #### ERUR #### [facility] [address] [place] [address] Dr. Jag Lemus (U)LT. YELLOWNormalYELLOWThe [facility]edo Medical CenterComment on above:Performed By: #### ERUR #### [facility] [address] [place] [address] Dr. Jag WeissCASTLEVIEW [facility] micrscopic examination will be performed if indicated. NormalThe [facility] Of [facility]edo Medical CenterComment on above:Performed By: #### ERUR #### [facility] [address] [place] [address] Dr. Jag WaldropGlucose Ql (U)NegativeNormalNEGATIVEOhioHealth Hardin Memorial Hospitalment on above:Performed By: #### ERUR #### [facility] [address] [place] [address] Dr. Jag WaldropHemoglobin Ql (U)NegativeNormalNEGATIVESelect Medical [facility] on above:Performed By: #### ERUR #### [facility] [address] [place] [address] Dr. Jag WaldropKetones Ql (U)NegativeNormalNEGATIVEThe [facility] CenterComment on above:Performed By: #### ERUR #### [facility] [address] [place] [address] Dr. Jag WaldropLEUKOCYTESNegativeNormalNEGATIVEThe [facility] CenterComment on above:Performed By: #### ERUR #### [facility] [address] [place] [address] Dr. Jag Paul Ql (U)NegativeNormalNEGATIVEThe [facility] HospitalComment on above:Performed By: #### ERUR #### [facility] [address] [place] [address] Dr. Jag WaldroppH (U)7.0 [pH]Normal5-9The [facility] HospitalComment on above: Performed By: #### ERUR #### [facility] [address] [place] [address] Dr. Jag WaldropSPEC GRAVITY1.417Qdlmwc9.005-<=1.025The [facility] HospitalComment on above:Performed By: #### ERUR #### [facility] [address] [place] [address] Dr. Jag Murillo PROTEINNegativeNormalNEGATIVE/ TRACEThe [facility] Comment on above:Performed By: #### ERUR #### [facility] [address] [place] [address] Dr. Jag Mathis MICRO INDNOT INDICATEDNormalThe [facility] HospitalComment on above:Performed By: #### ERUR #### [facility] [address] [place] [address] Dr. Jag He Qn (U)0.2 {Chris'U}/dLNormal0.2 - 1.0The [facility] HospitalComment on above:Performed By: #### ERUR #### [facility] [address] [place] [address] Dr. Jag WaldropPROF 14(COMP METB)on 34-53-2619Ccbamia [Mass/Vol]3.9 g/dLNormal 3.4-5.0The [facility] HospitalComment on above:Performed By: #### LIPID, BMP #### [facility] [address] [place] [address] Dr. Jag WaldropAlbumin/Globulin [Mass ratio]1.2 {ratio}NormalThe [facility] HospitalComment on above:Performed By: #### LIPID, BMP #### [facility] [address] [address] [address] Jag Jalloh [Catalytic activity/Vol]95 U/YJefqse92-772Ask [facility] HospitalComment on above:Performed By: #### LIPID, BMP #### [facility] [address] [address] [address] Jag LeachT [Catalytic activity/Vol]31 U/ATpnbbt03-84Pkm [facility] HospitalComment on above:Performed By: #### LIPID, BMP #### [facility] [address] [address] [address] Jag Ortega gap [Moles/Vol]12.7 mmol/LNormalThe [facility] Comment on above:Performed By: #### LIPID, BMP #### [facility] [address] [place] [address] Dr. Jag WaldropAST [Catalytic activity/Vol]34 U/LIsombl64-33Bae [facility] HospitalComment on above:Performed By: #### LIPID, BMP #### [facility] [address] [place] [address] Dr. Jag WaldropBilirubin [Mass/Vol]0.4 mg/dLNormal0.2-1.0The [facility] Comment on above:Performed By: #### LIPID, BMP #### [facility] [address] [place] [address] Dr. Jag WaldropCalcium [Mass/Vol]9.1 mg/dLNormal8.5-10.1The [facility] Comment on above:Performed By: #### LIPID, BMP #### [facility] [address] [place] [address] Dr. Jag WaldropChloride [Moles/Vol]107 mmol/PInfwhx57-858Tpl [facility] Comment on above:Performed By: #### LIPID, BMP #### [facility] [address] [address] [address] Jag WaldropCO2 [Moles/Vol]28.1 mmol/OYiyflo15.0-32.0The [facility] Comment on above:Performed By: #### LIPID, BMP #### [facility] [address] [address] [address] Jag WaldropCreatinine [Mass/Vol]1.18 mg/dLCritically high0.55-1.02The White Hospitalment on above:Performed By: #### LIPID, BMP #### [facility] [address] [address] [address] Jag HartGFR-AF NMMCINUI21 mL/min/1.51u1Zmcfrvrtfu low>=60The [facility] HospitalComment on above:Performed By: #### LIPID, BMP #### [facility] [address] [address] [address] Jag HartGFR-NON AF WWKEFELY65 mL/min/1.95a1Kisxtdplnz low>=60The [facility] HospitalComment on above:Performed By: #### LIPID, BMP #### [facility] [address] [place] [address] Dr. Jag WaldropGlobulin (S) [Mass/Vol]3.3 g/dLNormalThe [facility] HospitalComment on above:Performed By: #### LIPID, BMP #### [facility] [address] [place] [address] Dr. Jag WaldropGlucose [Mass/Vol]111 mg/dLCritically pbgj71-609Qvg [facility] on above:Performed By: #### LIPID, BMP #### [facility] [address] [place] [address] Dr. Jag WaldropPotassium [Moles/Vol]3.8 mmol/LNormal3.5-5.1The [facility] Comment on above:Performed By: #### LIPID, BMP #### [facility] [address] [place] [address] Dr. Jag WaldropProtein [Mass/Vol]7.2 g/dLNormal6.4-8.2The [facility] Comment on above:Performed By: #### LIPID, BMP #### [facility] [address] [place] [address] Dr. Jag WaldropSodium [Moles/Vol]144 mmol/ILlaieq058-950Kds [facility] Comment on above:Performed By: #### LIPID, BMP #### [facility] [address] [place] [address] Dr. Jag Roche nitrogen [Mass/Vol]19.0 mg/dLCritically high7.0-18.0[facility] Hospitalment on above:Performed By: #### LIPID, BMP #### [facility] [address] [place] [address] Dr. Jag Roche nitrogen/Creatinine [Mass ratio]16.1 mg/mgNoMemorial HospitalComment on above:Performed By: #### LIPID, BMP #### [facility] [address] [place] [address] Dr. Jag WaldropPROTIMEon 38-24-0728KBF Coag (PPP) [Relative time]{INR}NormalThe [facility] on above:Performed By: #### PT #### [facility] [address] [place] [address] Dr. Jag Sampson GUIDELINESSEE BELOWWayne HospitalComment on above:Result Comment: DESIRED INR: 2.0 - 3.0 CONDITIONS NOT LISTED BELOW 2.5 - 3.5 FOR PROSTHETIC HEART VALVE REPLACEMENT 2.5 - 3.5 RECURRENT THROMBOSIS Performed By: #### PT #### [facility] [address] [place] [address] Dr. Jag WaldropPT Coag (PPP) [Time]9.7 sNormal9.0-11.6The [facility] Comment on above:Performed By: #### PT #### [facility] [address] [place] [address] Dr. Jag Valerio, HIGH SENSITIVITYon 02-03-4777HUVPXB08.8 pg/mLNormal 4.0-51.3The [facility] on above:Result Comment: CUT-OFF POINTS HAVE BEEN ESTABLISHED BASED ON THE FOURTH UNIVERSAL DEFINITIONS OF MYOCARDIAL INFARCTION. THE UPPER REFERENCE LIMIT (URL) OF TROPONIN, DEFINED THE 99TH PERCENTILE OF cTnI DISTRIBUTION IN A REFERENCE POPULATION, HAS BEEN CONFIRMED THE DECISION THRESHOLD FOR MO DIAGNOSIS.Performed By: #### LIPID, BMP #### [facility] [address] [place] [address] Dr. Jag WaldropXR CHEST 2 Von 04-69-6645ZF CHEST 2 VXR CHEST 2 V COMPARISON: None. CLINICAL HISTORY: PLEURODYNIA TECHNIQUE: 2 views FINDINGS: The cardiac silhouette is enlarged, stable. The pulmonary vascular pattern is normal. The lungs are clear and the pleural margins are sharp. There are no significant skeletal abnormalities. IMPRESSION: CARDIOMEGALY. NO ACUTE RADIOGRAPHIC FINDINGS. Electronically authenticated by: WAN JENKINS Date: 2022-09-07 16:47Wayne HospitalGLYCOHEMOGLOBIN A1Con [id number] RECOMMENDATIONSEE BELOW NormalThe [facility] HospitalComment on above:Result Comment: ADA RECOMMENDED LIMIT 4.0 - 6.0 ADA THERAPEUTIC TARGET < 7.0 ACTION SUGGESTED > 7.0Performed By: #### LIPID, BMP #### [facility] [address] [place] [address] Dr. Jag WaldropGlucose [Mass/Vol]120 mg/dLNoMemorial HospitalComment on above:Performed By: #### LIPID, BMP #### [facility] [address] [place] [address] Dr. Jag WaldropHbA1c (Bld) [Mass fraction]5.8 %Normal4.5-6.2The [facility] HospitalComment on above:Performed By: #### LIPID, BMP #### [facility] [address] [place] [address] Dr. Jag WaldropPROF CHEM 8 (BAS METB)on 87-02-9972Gtzwj gap [Moles/Vol]13.2 mmol/LNormalThe [facility] HospitalComment on above:Performed By: #### BMP #### [facility] [address] [place] [address] Dr. Jag WaldropCalcium [Mass/Vol]9.0 mg/dLNormal8.5-10.1[facility] Comment on above:Performed By: #### BMP #### [facility] [address] [place] [address] Dr. Jag WaldropChloride [Moles/Vol]107 mmol/LIzafpy50-737Msy [facility] Comment on above:Performed By: #### BMP #### [facility] [address] [address] [address] Jag WaldropCO2 [Moles/Vol]26.3 mmol/VCpjxjn47.0-32.0The [facility] Comment on above:Performed By: #### BMP #### [facility] [address] [address] [address] Jag WaldropCreatinine [Mass/Vol]1.03 mg/dLCritically high0.55-1.02The [facility] HospitalComment on above:Performed By: #### BMP #### [facility] [address] [address] [address] Jag HartGFR-AF MOSOTHO>60Normal>=60The [facility] HospitalComment on above:Performed By: #### BMP #### [facility] [address] [address] [address] Jag HartGFR-NON AF GIZZORFM07 mL/min/1.55t0Kumcqkqoiw low>=60The [facility] HospitalComment on above:Performed By: #### BMP #### [facility] [address] [address] [address] Jag WaldropGlucose [Mass/Vol]149 mg/dLCritically gbec16-234Bzy [facility] HospitalComment on above:Performed By: #### BMP #### [facility] [address] [address] [address] Jag WaldropPotassium [Moles/Vol]4.5 mmol/LNormal3.5-5.1The [facility] Comment on above:Performed By: #### BMP #### [facility] [address] [address] [address] Jag WaldropSodium [Moles/Vol]142 mmol/TVpiesq050-009WwpThe [facility] Comment on above:Performed By: #### BMP #### [facility] [address] [address] [address] Jag WaldropUrea nitrogen [Mass/Vol]22.0 mg/dLCritically high7.0-18.0The [facility] HospitalComment on above:Performed By: #### BMP #### [facility] [address] [place], [place] [address] Dr. Jag WaldropUrea nitrogen/Creatinine [Mass ratio]21.4 mg/mgNoMemorial HospitalCompine rest christian mental health services on above:Performed By: #### BMP #### [facility] [address] [place], [place] [address] Dr. Jag WaldropCT ABD/PELVIS WO CONon [id number] ABD/PELVIS WO CONEXAMINATION: CT ABD/PELVIS WO CON, 05/29/2022 8:38 PM [...] Electronically authenticated by: NATHAN COLE Date: 2022-05-29 22:50NormUniversity Hospitals Tri[facility] Medical Centere [facility] HospitalUS KVNG DOP LEG RTon [id number] KVNG DOP LEG RTEXAM: US KVNG DOP LEG RT HISTORY: Pain [...] Electronically authenticated by: LUZ COELLO Date: 2022-05-29 22:42NoMemorial HospitalCBC AUTO DIFFon [id number] #0.1 103/ulNormal0.0-0.1The [facility] CenterComment on above:Performed By: #### LIPID, BMP #### [facility] [address] [place] [address] Dr. Rm ChangBasophils/100 WBC (Bld)0.7 %Normal0.2-2.0[facility] Comment on above:Performed By: #### LIPID, BMP #### [facility] [address] [place] [address] Dr. Jag Aguero #0.1 103/ulNormal0.0-0.7The [facility] HospitalComment on above: Performed By: #### LIPID, BMP #### [facility] [address] [place] [address] Dr. Jag Hartosinophils/100 WBC (Bld)1.5 %Normal0.9-7.0[facility] Comment on above:Performed By: #### LIPID, BMP #### [facility] [address] [place] [address] Dr. Jag Hartrythrocyte distribution width (RBC) [Ratio]13.9 %Oibatx75.0-15.0 The [facility] CenterComment on above:Performed By: #### LIPID, BMP #### [facility] [address] [place] [address] Dr. Jag WaldropHematocrit (Bld) [Volume fraction]34.2 %Critically low36.0-48.0 The [facility] HospitalComment on above:Performed By: #### LIPID, BMP #### [facility] [address] [place] [address] Dr. Jag WaldropHemoglobin (Bld) [Mass/Vol]10.9 g/dLCritically low12.0-16.0The [facility] HospitalComment on above:Performed By: #### LIPID, BMP #### [facility] [address] [place] [address] Dr. Jag Del Real #0.02 10e3/ulNormal0.00-0.03The [facility] HospitalComment on above:Performed By: #### LIPID, BMP #### [facility] [address] [place] [address] Dr. Jag Del Real %0.2 %Normal0.0-0.5The [facility] HospitalComment on above: Performed By: #### LIPID, BMP #### [facility] [address] [place] [address] Dr. Jag Boo #2.5 103/ulNormal1.2-3.8The [facility] HospitalComment on above:Performed By: #### LIPID, BMP #### [facility] [address] [place] [address] Dr. Jag Mccurdyhocytes/100 WBC (Bld)30.4 %Arzeyz03.5-60.0The [facility] HospitalComment on above:Performed By: #### LIPID, BMP #### [facility] [address] [place] [address] Dr. Jag WaldropMANUAL DIFF REQNONormalThe [facility] HospitalComment on above: Performed By: #### LIPID, BMP #### [facility] [address] [place] [address] Dr. Jag Mc (RBC) [Entitic mass]27.1 xaBsblco63.7-34.0The [facility] HospitalComment on above:Performed By: #### LIPID, BMP #### [facility] [address] [address] [address] Jag Lujan (RBC) [Mass/Vol]31.9 g/wIMmiiuf85.9-35.2The [facility] HospitalComment on above:Performed By: #### LIPID, BMP #### [facility] [address] [place] [address] Dr. Jag Lujan (RBC) [Entitic vol]85.1 qEOlgwlv85.0-99.0The [facility] HospitalComment on above:Performed By: #### LIPID, BMP #### [facility] [address] [place] [address] Dr. Jag Meléndez #0.5 103/ulNormal0.3-0.8The [facility] HospitalComment on above:Performed By: #### LIPID, BMP #### [facility] [address] [place] [address] Dr. Jag Ayonocytes/100 WBC (Bld)6.7 %Normal1.7-12.0The [facility] Comment on above:Performed By: #### LIPID, BMP #### [facility] [address] [place] [address] #4.9 103/ulNormal1.4-6.5The [facility] HospitalComment on above:Performed By: #### LIPID, BMP #### [facility] [address] [place] [address] Dr. Jag Hawkinsutrophils/100 WBC (Bld)60.5 %Kignsc03.0-75.0The [facility] HospitalComment on above:Performed By: #### LIPID, BMP #### [facility] [address] [place] [address] Dr. Jag Cooneylet mean volume (Bld) [Entitic vol]10.3 fLNormal9.5-13.5The [facility] HospitalComment on above:Performed By: #### LIPID, BMP #### [facility] [address] [place] [address] Dr. Jag GonzalezT256 103/rhWoxbhj637-043GnrOhioHealth Hardin Memorial Hospitalment on above: Performed By: #### LIPID, BMP #### [facility] [address] [place] [address] Dr. Jag EspinoC4.02 106/ulCritically low4.20-5.40[facility] on above:Performed By: #### LIPID, BMP #### [facility] [address] [place] [address] Dr. Jag WaldropWBC8.1 103/ulNormal4.0-11.0[facility] on above: Performed By: #### LIPID, BMP #### [facility] [address] [place] [address] Dr. Jag Zelaya URINE PROFILEon 47-21-2660Ghqemurtp Ql (U)NegativeNormal NEGATIVEThe University Of Toledo Medical CenterComment on above:Performed By: #### LIPID, BMP #### [facility] [address] [place] [address] Dr. Jag Jack (U)CLEARNormalCLEARThe University Of [facility] Medical CenterComment on above: Performed By: #### LIPID, BMP #### [facility] [address] [place] [address] Dr. Jag Lemus (U)YELLOWNormalYELLOWOhioHealth Hardin Memorial Hospitalment on above: Performed By: #### LIPID, BMP #### [facility] [address] [place] [address] Dr. Jag Elias micrscopic examination will be performed if indicated. NormalThe [facility] HospitalComment on above:Performed By: #### LIPID, BMP #### [facility] [address] [place] [address] Dr. Jag WaldropGlucose Ql (U)NegativeNormalNEGATIVEOhioHealth Hardin Memorial Hospitalment on above:Performed By: #### LIPID, BMP #### [facility] [address] [place] [address] Dr. Jag WaldropHemoglobin Ql (U)NegativeNormalNEGATIVESelect Medical [facility] on above:Performed By: #### LIPID, BMP #### [facility] [address] [address] [address] Jag Brown Ql (U)15 mg/dlAbnormalNEGATIVEThe [facility] Comment on above:Performed By: #### LIPID, BMP #### [facility] [address] [address] [address] Jag CarbajalOCYTESTRACEAbnormalNEGATIVEThe [facility] HospitalComment on above:Performed By: #### LIPID, BMP #### [facility] [address] [place] [address] Dr. Jag Pollacktrbetsy Ql (U)NegativeNormalNEGATIVEThe [facility] HospitalComment on above:Performed By: #### LIPID, BMP #### [facility] [address] [place] [address] Dr. Jag WaldroppH (U)5.5 [pH]Normal5-9The [facility] HospitalComment on above: Performed By: #### LIPID, BMP #### [facility] [address] [place] [address] Dr. Jag WaldropSPEC GRAVITY1.905Rmofqw8.005-<=1.025The [facility] HospitalComment on above:Performed By: #### LIPID, BMP #### [facility] [address] [place] [address] Dr. Jag Murillo PROTEINNegativeNormalNEGATIVE/ TRACEThe [facility] Comment on above:Performed By: #### LIPID, BMP #### [facility] [address] [place] [address] Dr. Jag Mathis MICRO INDINDICATEDNormalThe [facility] HospitalComment on above: Performed By: #### LIPID, BMP #### [facility] [address] [place] [address] Dr. Jag Goldberginogen Qn (U)0.2 {Chris'U}/dLNormal0.2 - 1.0The [facility] HospitalComment on above:Performed By: #### LIPID, BMP #### [facility] [address] [place] [address] Dr. Jag StaffordF CHEM 8 (BAS METB)on 85-61-3384Tpscv gap [Moles/Vol]14.2 mmol/LNormalThe [facility] Medical CenterComment on above:Performed By: #### BMP #### [facility] [address] [address] [address] Jag WaldropCalcium [Mass/Vol]9.1 mg/dLNormal8.5-10.1The [facility] Comment on above:Performed By: #### BMP #### [facility] [address] [address] [address] Jag WaldropChloride [Moles/Vol]106 mmol/LMkpwyr97-555Gzl [facility] Comment on above:Performed By: #### BMP #### [facility] [address] [address] [address] Jag WaldropCO2 [Moles/Vol]23.5 mmol/TJgoooe70.0-32.0The [facility] Comment on above:Performed By: #### BMP #### [facility] [address] [address] [address] Jag WaldropCreatinine [Mass/Vol]1.29 mg/dLCritically high0.55-1.02The [facility] HospitalComment on above:Performed By: #### BMP #### [facility] [address] [address] [address] Rm ChangEGFR-AF DPYUUPUW33 mL/min/1.92u3Dmlemdqplr low>=60The [facility] HospitalComment on above:Performed By: #### BMP #### [facility] [address] [address] [address] Jag HartGFR-NON AF JDHCEBPJ55 mL/min/1.52i6Rqkmhummyu low>=60The [facility] HospitalComment on above:Performed By: #### BMP #### [facility] [address] [address] [address] Jag WaldropGlucose [Mass/Vol]93 mg/aTRdysxu06-468Hmj [facility] Comment on above:Performed By: #### BMP #### [facility] [address] [address] [address] Jag WaldropPotassium [Moles/Vol]3.7 mmol/LNormal3.5-5.1The [facility] Comment on above:Performed By: #### BMP #### [facility] [address] [address] [address] Jag WaldropSodium [Moles/Vol]140 mmol/VBdeymm606-093Pyo [facility] Comment on above:Performed By: #### BMP #### [facility] [address] [place] [address] Dr. Jag WaldropUrea nitrogen [Mass/Vol]24.0 mg/dLCritically high7.0-18.0The [facility] HospitalComment on above:Performed By: #### BMP #### [facility] [address] [place] [address] Dr. Jag Roche nitrogen/Creatinine [Mass ratio]18.6 mg/mgNoMemorial HospitalComment on above:Performed By: #### BMP #### [facility] [address] [place] [address] Dr. Jag Baez MICROSCOPIC ONLYon [id number]G SEEN The [facility] HospitalComment on above:Performed By: #### LIPID, BMP #### [facility] [address] [place] [address] Dr. Jag Cardona identified Cx Nom (U)NOT INDICATEDNoMemorial HospitalComment on above:Performed By: #### LIPID, BMP #### [facility] [address] [place] [address] Dr. Jag Adkins SEENNormalNONE SEENThe [facility] HospitalComment on above:Performed By: #### LIPID, BMP #### [facility] [address] [place] [address] Dr. Jag Weathers LM Nom (Urine sed)NONE SEENNormalNONE SEENThe University Of [facility] Medical CenterCompine rest christ[facility] services on above:Performed By: #### LIPID, BMP #### [facility] [address] [place] [address] Dr. Rm ChangEpithelial cells LM Ql (Urine sed)RARENormalNONE SEEN /RAREThe [facility] HospitalComment on above:Performed By: #### LIPID, BMP #### [facility] [address] [address] [address] Jag WaldropMUCOUSNONE SEENNormalNONE SEENThe [facility] HospitalComment on above:Performed By: #### LIPID, BMP #### [facility] [address] [address] [address] Jag WaldropQffwqZEV9-83Heqfxodu2-5Nxy [facility] HospitalComment on above:Performed By: #### LIPID, BMP #### [facility] [address] [address] [address] Jag WaldropWBC0-2AbnormalNONE SEENThe [facility] HospitalComment on above: Performed By: #### LIPID, BMP #### [facility] [address] [place] [address] Dr. Jag WaldropMG MAMM SCREEN 3D ORESTES CADon [id number] MAMM SCREEN 3D ORESTES CAD Patient: SHERLY HUMPHREYS Exam Date: 03/29/2022 : 1970 Gender:F Ordering : AGUST[facility] [place] Admission #: [id number] Family : Order #: [id number] CLICK HERE TO VIEW EXAM RADIOLOGY REPORT [...] head/neck cancer at age 73. LOCATION: [facility] BREAST COMPOSITION: Scattered areas fibroglandular density. [...] by: Kathy Lobato M.D. on 03/29/2022 at 15:31[facility] CenterI LSPINE WO W CONon [id number] LSPINE WO W CONEXAMINATION: MRI LSPINE WO W CON HISTORY: Spinal [...] Electronically authenticated by: KATHY LOBATO Date: 2022-03-23 11:26[facility] TSPINE WO W CONon [id number] TSPINE WO W CONEXAMINATION: MRI TSPINE WO W CON HISTORY: Spinal [...] Electronically authenticated by: KATHY LOBATO Date: 2022-03-23 12:50[facility] HospitalPR[facility]M 8 (BAS METB)on 90-93-3085Mmdln gap [Moles/Vol]11.8 mmol/LNormalThe University [facility] Toledo Medical CenterComment on above:Performed By: #### POCGLUC #### [facility] [address] [address] [address] Jag WaldropCalcium [Mass/Vol]9.0 mg/dLNormal8.5-10.1[facility] Comment on above:Performed By: #### POCGLUC #### [facility] [address] [place] [address] Dr. Jag WaldropChloride [Moles/Vol]107 mmol/YJlhxlh76-456JnpThe [facility] Comment on above:Performed By: #### POCGLUC #### [facility] [address] [address] [address] Jag WaldropCO2 [Moles/Vol]30.2 mmol/IAcrcka72.0-32.0[facility] Comment on above:Performed By: #### POCGLUC #### [facility] [address] [place] [address] Dr. Jag WaldropCreatinine [Mass/Vol]1.32 mg/dLCritically high0.55-1.02The [facility] CenterComment on above:Performed By: #### POCGLUC #### [facility] [address] [address] [address] Jag HartGFR-AF RBWJAILU92 mL/min/1.48l7Hdboouhpry low>=60The [facility] HospitalComment on above:Performed By: #### POCGLUC #### [facility] [address] [address] [address] Jag HartGFR-NON AF VUKQBJQK22 mL/min/1.71g1Ckesjnidpz low>=60The [facility] HospitalComment on above:Performed By: #### POCGLUC #### [facility] [address] [address] [address] Jag WaldropGlucose [Mass/Vol]117 mg/dLCritically ukue36-541Noi [facility] HospitalComment on above:Performed By: #### POCGLUC #### [facility] [address] [address] [address] Jag WaldropPotassium [Moles/Vol]4.0 mmol/LNormal3.5-5.1The [facility] Comment on above:Performed By: #### POCGLUC #### [facility] [address] [address] [address] Jag WaldropSodium [Moles/Vol]145 mmol/GYcouaa173-968Oew [facility] Comment on above:Performed By: #### POCGLUC #### [facility] [address] [address] [address] Jag WaldropUrea nitrogen [Mass/Vol]23.0 mg/dLCritically high7.0-18.0The [facility] HospitalComment on above:Performed By: #### POCGLUC #### [facility] [address] [address] [address] Jag WaldropUrea nitrogen/Creatinine [Mass ratio]17.4 mg/mgNormalThe [facility] HospitalComment on above:Performed By: #### POCGLUC #### [facility] [address] [address] [address] Jag WaldropCBC AUTO DIFFon [id number] #0.1 103/ulNormal0.0-0.1The [facility] HospitalComment on above:Performed By: #### POCGLUC #### [facility] [address] [place] [address] Dr. Jag WaldropBasophils/100 WBC (Bld)1.0 %Normal0.2-2.0[facility] Comment on above:Performed By: #### POCGLUC #### [facility] [address] [place] [address] Dr. Jag Aguero #0.1 103/ulNormal0.0-0.7The [facility] HospitalComment on above: Performed By: #### POCGLUC #### [facility] [address] [place] [address] Dr. Jag Hartosinophils/100 WBC (Bld)1.9 %Normal0.9-7.0The [facility] Comment on above:Performed By: #### POCGLUC #### [facility] [address] [place] [address] Dr. Jag Hartrythrocyte distribution width (RBC) [Ratio]13.2 %Ppnxsm88.0-15.0 The [facility] HospitalComment on above:Performed By: #### POCGLUC #### [facility] [address] [place] [address] Dr. Jag WaldropHematocrit (Bld) [Volume fraction]36.7 %Hmgvog76.0-48.0The [facility] CenterComment on above:Performed By: #### POCGLUC #### [facility] [address] [place] [address] Dr. Jag WaldropHemoglobin (Bld) [Mass/Vol]11.4 g/dLCritically low12.0-16.0The [facility] CenterComment on above:Performed By: #### POCGLUC #### [facility] [address] [place] [address] Dr. Jag Del Real #0.03 10e3/ulNormal0.00-0.03The [facility] HospitalComment on above:Performed By: #### POCGLUC #### [facility] [address] [place] [address] Dr. Jag Del Real %0.5 %Normal0.0-0.5The [facility] HospitalComment on above: Performed By: #### POCGLUC #### [facility] [address] [place] [address] Dr. Jag Boo #2.1 103/ulNormal1.2-3.8The [facility] HospitalComment on above:Performed By: #### POCGLUC #### [facility] [address] [place] [address] Dr. Jag Mccurdyhocytes/100 WBC (Bld)34.1 %Wtkwfu23.5-60.0The [facility] HospitalComment on above:Performed By: #### POCGLUC #### [facility] [address] [place] [address] Dr. Jag CaputoUAL DIFF REQNONormalThe [facility] HospitalComment on above: Performed By: #### POCGLUC #### [facility] [address] [place] [address] Dr. Jag Lujan (RBC) [Entitic mass]28.4 efHtodxe93.7-34.0The [facility] HospitalComment on above:Performed By: #### POCGLUC #### [facility] [address] [place] [address] Dr. Jag Lujan (RBC) [Mass/Vol]31.1 g/dCVguelk70.9-35.2The [facility] HospitalComment on above:Performed By: #### POCGLUC #### [facility] [address] [place] [address] Dr. Jag Lujan (RBC) [Entitic vol]91.5 uUIrvwuq76.0-99.0The [facility] HospitalComment on above:Performed By: #### POCGLUC #### [facility] [address] [place] [address] Dr. Jag Meléndez #0.5 103/ulNormal0.3-0.8The [facility] HospitalComment on above:Performed By: #### POCGLUC #### [facility] [address] [place] [address] Dr. Jag Ayonocytes/100 WBC (Bld)8.4 %Normal1.7-12.0The [facility] Comment on above:Performed By: #### POCGLUC #### [facility] [address] [place] [address] Dr. Jag HawkinsUT #3.3 103/ulNormal1.4-6.5The [facility] HospitalComment on above:Performed By: #### POCGLUC #### [facility] [address] [place] [address] Dr. Jag Hawkinsutrophils/100 WBC (Bld)54.1 %Xbxmrx99.0-75.0The [facility] HospitalComment on above:Performed By: #### POCGLUC #### [facility] [address] [place] [address] Dr. Jag Cooneylet mean volume (Bld) [Entitic vol]10.6 fLNormal9.5-13.5The [facility] HospitalComment on above:Performed By: #### POCGLUC #### [facility] [address] [place] [address] Dr. Jag WaldropPLT294 103/qvBznktb717-364Lvo [facility] HospitalComment on above: Performed By: #### POCGLUC #### [facility] [address] [place] [address] Dr. Jag WaldropRBC4.01 106/ulCritically low4.20-5.40The [facility] HospitalComment on above:Performed By: #### POCGLUC #### [facility] [address] [place] [address] Dr. Jag WaldropWBC6.2 103/ulNormal4.0-11.0The [facility] HospitalComment on above: Performed By: #### POCGLUC #### [facility] [address] [place] [address] Dr. Jag Bass [id number] [Mass/Vol]mg/LNormal<=1.0The [facility] HospitalComment on above:Performed By: #### ERUR #### [facility] [address] [place] [address] Dr. Jag Phelps TSPINE WO CONon [id number] TSPINE WO CONEXAMINATION: CT TSPINE WO CON, CT LSPINE WO CON HISTORY: [...] Electronically authenticated by: ALEX AVINA Date: 2022-02-19 19:25[facility] URINE PROFILEon 52-16-3394Cvywymtoj Ql (U)NegativeNormal NEGATIVEThe [facility] HospitalComment on above:Performed By: #### POCGLUC #### [facility] [address] [place] [address] Dr. Jag Jack (U)CLEARNormalCLEARThe [facility] HospitalComment on above: Performed By: #### POCGLUC #### [facility] [address] [place] [address] Dr. Jag Lemus (U)LT. YELLOWNormalYELLOWThe [facility] HospitalComment on above:Performed By: #### POCGLUC #### [facility] [address] [place] [address] Dr. Jag Elias micrscopic examination will be performed if indicated. NormalThe [facility] HospitalComment on above:Performed By: #### POCGLUC #### [facility] [address] [address] [address] Jag WaldropGlucose Ql (U)NegativeNormalNEGATIVEThe [facility] CenterComment on above:Performed By: #### POCGLUC #### [facility] [address] [address] [address] Jag WaldropHemoglobin Ql (U)NegativeNormalNEGCoshocton Regional Medical Center Comment on above:Performed By: #### POCGLUC #### [facility] [address] [address] [address] Jag WaldropKetones Ql (U)NegativeNormalNEGATIVEThe [facility] CenterComment on above:Performed By: #### POCGLUC #### [facility] [address] [address] [address] Jag WaldropLEUKOCYTESNegativeNormalNEGATIVEThe [facility] CenterComment on above:Performed By: #### POCGLUC #### [facility] [address] [address] [address] Jag WaldropNitrite Ql (U)NegativeNormalNEGATIVEThe [facility] CenterComment on above:Performed By: #### POCGLUC #### [facility] [address] [address] [address] Jag WaldroppH (U)5.5 [pH]Normal5-9The [facility] CenterComment on above: Performed By: #### POCGLUC #### [facility] [address] [address] [address] Jag WaldropSPEC GRAVITY1.123Kxjkgo6.005-<=1.025The [facility] HospitalComment on above:Performed By: #### POCGLUC #### [facility] [address] [address] [address] Jag WaldropUA PROTEINNegativeNormalNEGATIVE/ TRACEThe [facility] Comment on above:Performed By: #### POCGLUC #### [facility] [address] [place] [address] Dr. Jag Mathis MICRO INDNOT INDICATEDNoalThUniversity Hospitals Lake West Medical CenterComment on above:Performed By: #### POCGLUC #### [facility] [address] [place] [address] Dr. Jag Hamptonbilinogen Qn (U)0.2 {Chris'U}/dLNormal0.2 - 1.0The [facility] HospitalComment on above:Performed By: #### POCGLUC #### [facility] [address] [place] [address] Dr. Jag WaldropPROF CHEM 8 (BAS METB)on 16-46-7695Gqurg gap [Moles/Vol]10.8 mmol/LNormalThe [facility] HospitalComment on above:Performed By: #### ERUR #### [facility] [address] [place] [address] Dr. Jag WaldropCalcium [Mass/Vol]9.0 mg/dLNormal8.5-10.1The [facility] Comment on above:Performed By: #### ERUR #### [facility] [address] [place] [address] Dr. Jag WaldropChloride [Moles/Vol]106 mmol/LEvtasn28-842Xxu [facility] Comment on above:Performed By: #### ERUR #### [facility] [address] [place] [address] Dr. Jag WaldropCO2 [Moles/Vol]28.1 mmol/MGjruxl67.0-32.0[facility] Comment on above:Performed By: #### ERUR #### [facility] [address] [place] [address] Dr. Jag WaldropCreatinine [Mass/Vol]1.06 mg/dLCritically high0.55-1.02The [facility] HospitalComment on above:Performed By: #### ERUR #### [facility] [address] [place] [address] Dr. Jag HartGFR-AF MOSOTHO>60Normal>=60The [facility] HospitalComment on above:Performed By: #### ERUR #### [facility] [address] [place] [address] Dr. Jag HartGFR-NON AF IZPQQUPS64 mL/min/1.82z9Jhjxnzumqd low>=60The [facility] HospitalComment on above:Performed By: #### ERUR #### [facility] [address] [place] [address] Dr. Jag WaldropGlucose [Mass/Vol]89 mg/jFSwvvll98-395Tca [facility] Comment on above:Performed By: #### ERUR #### [facility] [address] [address] [address] Jag WaldropPotassium [Moles/Vol]3.9 mmol/LNormal3.5-5.1The [facility] Comment on above:Performed By: #### ERUR #### [facility] [address] [place] [address] Dr. Jag Conraddium [Moles/Vol]141 mmol/EGlmcoi345-235Pbm [facility] Comment on above:Performed By: #### ERUR #### [facility] [address] [place] [address] Dr. Jag WaldropUrea nitrogen [Mass/Vol]19.0 mg/dLCritically high7.0-18.0The [facility] HospitalComment on above:Performed By: #### ERUR #### [facility] [address] [place] [address] Dr. Jag Roche nitrogen/Creatinine [Mass ratio]17.9 mg/mgNormalThe [facility] HospitalComment on above:Performed By: #### ERUR #### [facility] [address] [place] [address] Dr. Jag Bangura RATE WESTERGRENon 97-57-9126MQR RATE19 mm/hrNormal<=30The [facility] HospitalComment on above:Performed By: #### LIPID, BMP #### [facility] [address] [place] [address] Dr. Jag WaldropPROF CHEM 8 (BAS METB)on 82-45-7270Zajfl gap [Moles/Vol]17.3 mmol/LNormalThe [facility] HospitalComment on above:Performed By: #### LIPID, BMP #### [facility] [address] [address] [address] Jag WaldropCalcium [Mass/Vol]9.2 mg/dLNormal8.5-10.1The [facility] Comment on above:Performed By: #### LIPID, BMP #### [facility] [address] [address] [address] Jag WaldropChloride [Moles/Vol]108 mmol/LCritically jzlz85-022Ccl [facility] HospitalComment on above:Performed By: #### LIPID, BMP #### [facility] [address] [place] [address] Dr. Jag WaldropCO2 [Moles/Vol]20.0 mmol/LCritically low21.0-32.0The [facility] HospitalComment on above:Performed By: #### LIPID, BMP #### Our [facility] [address] [place] [address] Dr. Jag WaldropCreatinine [Mass/Vol]1.40 mg/dLCritically high0.55-1.02The [facility] HospitalComment on above:Performed By: #### LIPID, BMP #### [facility] [address] [place] [address] Dr. Jag HartGFR-AF TVQIFKMF80 mL/min/1.39v3Aajghdqrsw low>=60The [facility] HospitalComment on above:Performed By: #### LIPID, BMP #### [facility] [address] [place] [address] Dr. Jag HartGFR-NON AF OAIBHNSG30 mL/min/1.18m6Xqmcaglwmu low>=60The [facility] HospitalComment on above:Performed By: #### LIPID, BMP #### [facility] [address] [place] [address] Dr. Jag WaldropGlucose [Mass/Vol]126 mg/dLCritically btgt48-573Wcp [facility] HospitalComment on above:Performed By: #### LIPID, BMP #### [facility] [address] [place] [address] Dr. Jag WaldropPotassium [Moles/Vol]5.3 mmol/LCritically high3.5-5.1The [facility] HospitalComment on above:Performed By: #### LIPID, BMP #### [facility] [address] [place] [address] Dr. Jag Pinedaum [Moles/Vol]140 mmol/LTnbynf864-116Qha [facility] Comment on above:Performed By: #### LIPID, BMP #### [facility] [address] [place] [address] Dr. Jag Roche nitrogen [Mass/Vol]31.0 mg/dLCritically high7.0-18.0The [facility] HospitalComment on above:Performed By: #### LIPID, BMP #### [facility] [address] [place] [address] Dr. Jag Roche nitrogen/Creatinine [Mass ratio]22.1 mg/mgNormalThe [facility] HospitalComment on above:Performed By: #### LIPID, BMP #### [facility] [address] [place] [address] Dr. Jag Burris AUTO DIFFon [id number] #0.1 103/ulNormal0.0-0.1The [facility] HospitalComment on above:Performed By: #### CBC #### [facility] [address] [place] [address] Dr. Jag WaldropBasophils/100 WBC (Bld)1.0 %Normal0.2-2.0[facility] Comment on above:Performed By: #### CBC #### [facility] [address] [place] [address] Dr. Jag Aguero #0.2 103/ulNormal0.0-0.7The [facility] HospitalComment on above: Performed By: #### CBC #### [facility] [address] [place] [address] Dr. Jag Hartosinophils/100 WBC (Bld)3.3 %Normal0.9-7.0The [facility] Comment on above:Performed By: #### CBC #### [facility] [address] [place] [address] Dr. Jag Hartrythrocyte distribution width (RBC) [Ratio]13.2 %Zizckz04.0-15.0 The [facility] HospitalComment on above:Performed By: #### CBC #### [facility] [address] [place] [address] Dr. Jag WaldropHematocrit (Bld) [Volume fraction]35.6 %Critically low36.0-48.0 The [facility] HospitalComment on above:Performed By: #### CBC #### [facility] [address] [place] [address] Dr. Jag WaldropHemoglobin (Bld) [Mass/Vol]10.6 g/dLCritically low12.0-16.0The [facility] HospitalComment on above:Performed By: #### CBC #### [facility] [address] [place] [address] Dr. Jag Del Real #0.01 10e3/ulNormal0.00-0.03The [facility] HospitalComment on above:Performed By: #### CBC #### [facility] [address] [place] [address] Dr. Jag Del Real %0.2 %Normal0.0-0.5The [facility] HospitalComment on above: Performed By: #### CBC #### [facility] [address] [place] [address] Dr. Jag Boo #1.7 103/ulNormal1.2-3.8The [facility] HospitalComment on above:Performed By: #### CBC #### [facility] [address] [place] [address] Dr. Jag Griffinmphocytes/100 WBC (Bld)35.4 %Faexcy83.5-60.0The [facility] HospitalComment on above:Performed By: #### CBC #### [facility] [address] [place] [address] Dr. Jag CaputoUAL DIFF REQNONormalThe [facility] HospitalComment on above: Performed By: #### CBC #### [facility] [address] [place] [address] Dr. Jag Mc (RBC) [Entitic mass]29.0 fvLaycjm60.7-34.0The [facility] HospitalComment on above:Performed By: #### CBC #### [facility] [address] [place] [address] Dr. Jag Lujan (RBC) [Mass/Vol]29.8 g/dLCritically low29.9-35.2The [facility] HospitalComment on above:Performed By: #### CBC #### [facility] [address] [place] [address] Dr. Jag Lujan (RBC) [Entitic vol]97.3 eBFyidyr55.0-99.0The [facility] HospitalComment on above:Performed By: #### CBC #### [facility] [address] [place] [address] Dr. Jag Meléndez #0.3 103/ulNormal0.3-0.8The [facility] HospitalComment on above:Performed By: #### CBC #### [facility] [address] [place] [address] Dr. Jag Ayonocytes/100 WBC (Bld)6.8 %Normal1.7-12.0The [facility] Comment on above:Performed By: #### CBC #### [facility] [address] [place] [address] #2.6 103/ulNormal1.4-6.5The [facility] HospitalComment on above:Performed By: #### CBC #### [facility] [address] [place] [address] Dr. Jag Hawkinsutrophils/100 WBC (Bld)53.3 %Ptmdia07.0-75.0The [facility] HospitalComment on above:Performed By: #### CBC #### [facility] [address] [place] [address] Dr. Jag Cooneylet mean volume (Bld) [Entitic vol]11.0 fLNormal9.5-13.5The [facility] HospitalComment on above:Performed By: #### CBC #### [facility] [address] [place] [address] Dr. Jag WaldropPLT230 103/xhDzacmb304-000Onz [facility] HospitalComment on above: Performed By: #### CBC #### [facility] [address] [place] [address] Dr. Jag WaldropRBC3.66 106/ulCritically low4.20-5.40The [facility] HospitalComment on above:Performed By: #### CBC #### [facility] [address] [place] [address] Dr. Jag WaldropWBC4.8 103/ulNormal4.0-11.0The [facility] HospitalComment on above: Performed By: #### CBC #### [facility] [address] [place] [address] Dr. Jag WaldropFERRITINon [id number] [Mass/Vol]35.0 ng/mLNormal8.0-252.0 The [facility] HospitalComment on above:Performed By: #### LIPID, BMP #### [facility] [address] [place] [address] Dr. Jag Mayfield 36-68-1976Pyby [Mass/Vol]71.0 ug/lTZusmcz68.0-170.0The [facility] CenterComment on above:Performed By: #### LIPID, BMP #### [facility] [address] [place] [address] Dr. Jag WaldropLIPID PROFILEon [id number]-HDL RATIO NORMSLakeHealth Beachwood Medical CenterComment on above:Result Comment: 3.3 - 4.4 LOW RISK 4.4 - 7.1 AVERAGE RISK 7.1 - 11.0 MODERATE RISK >11.0 HIGH RISKPerformed By: #### LIPID, BMP #### [facility] [address] [place] [address] Dr. Jag WaldropCholesterol [Mass/Vol]133 mg/dLNormal<=200The [facility] Comment on above:Performed By: #### LIPID, BMP #### [facility] [address] [address] [address] Jag WaldropCholesterol in HDL [Mass/Vol]41 mg/gKSabbfm53-44Tjr [facility] HospitalComment on above:Performed By: #### LIPID, BMP #### [facility] [address] [address] [address] Jag WaldropCholesterol in LDL [Mass/Vol]70.8 mg/dLNoMemorial HospitalComment on above:Performed By: #### LIPID, BMP #### [facility] [address] [place] [address] Dr. Jag Brownleeestersoham.total/Cholesterol in HDL [Mass ratio]3.2 {ratio} NormalThe [facility] HospitalComment on above:Performed By: #### LIPID, BMP #### [facility] [address] [place] [address] Dr. Jag GrovesL NORMAL> or = 60 mg/dl - LOW CARDIOVASCULAR RISK <40 mg/dl - HIGH CARDIOVASCULAR RISKNoMemorial HospitalComment on above:Performed By: #### LIPID, BMP #### [facility] [address] [place] [address] Dr. Jag Herron CALC NORMALSEE BELOWWayne HospitalComment on above:Result Comment: <100 mg/dl OPTIMAL 100 - 129 mg/dl NEAR OR ABOVE OPTIMAL 130 - 159 mg/dl BORDERLINE HIGH 160 - 189 mg/dl HIGH >190 mg/dl VERY HIGH Performed By: #### LIPID, BMP #### [facility] [address] [address] [address] Jag WaldropTriglyceride [Mass/Vol]106 mg/dLNormal<=150The [facility] Comment on above:Performed By: #### LIPID, BMP #### [facility] [address] [place] [address] Dr. Jag WaldropVLDL CALC21.2 mg/dLNoMemorial HospitalComment on above: Performed By: #### LIPID, BMP #### [facility] [address] [place] [address] Dr. Jag WaldropPROF CHEM 8 (BAS METB)on [id number] gap [Moles/Vol]18.2 mmol/LNormalThe [facility] HospitalComment on above:Performed By: #### LIPID, BMP #### [facility] [address] [place] [address] Dr. Jag WaldropCalcium [Mass/Vol]9.3 mg/dLNormal8.5-10.1The [facility] Comment on above:Performed By: #### LIPID, BMP #### [facility] [address] [place] [address] Dr. Jag WaldropChloride [Moles/Vol]111 mmol/LCritically mnvn49-988Hlk [facility] HospitalComment on above:Performed By: #### LIPID, BMP #### [facility] [address] [place] [address] Dr. Rm ChangCO2 [Moles/Vol]19.9 mmol/LCritically low21.0-32.0The [facility] HospitalComment on above:Performed By: #### LIPID, BMP #### [facility] [address] [place] [address] Dr. Jag WaldropCreatinine [Mass/Vol]1.27 mg/dLCritically high0.55-1.02The [facility] HospitalComment on above:Performed By: #### LIPID, BMP #### [facility] [address] [place] [address] Dr. Rm ChangEGFR-AF HYHAGUWT90 mL/min/1.19f0Rbxhsxodme low>=60The [facility] HospitalComment on above:Performed By: #### LIPID, BMP #### [facility] [address] [place] [address] Dr. Rm ChangEGFR-NON AF SYVJSGBS43 mL/min/1.26e0Zpijgnyhdf low>=60The [facility] HospitalComment on above:Performed By: #### LIPID, BMP #### [facility] [address] [place] [address] Dr. Jag WaldropGlucose [Mass/Vol]129 mg/dLCritically bnqr29-240Lcs [facility] HospitalComment on above:Performed By: #### LIPID, BMP #### [facility] [address] [address] [address] Jag WaldropPotassium [Moles/Vol]6.1 mmol/LCritically high3.5-5.1The [facility] HospitalComment on above:Performed By: #### LIPID, BMP #### [facility] [address] [address] [address] Jag WaldropSodium [Moles/Vol]142 mmol/ORhadco428-472Qoo [facility] Comment on above:Performed By: #### LIPID, BMP #### [facility] [address] [address] [address] Jag WaldropUrea nitrogen [Mass/Vol]35.0 mg/dLCritically high7.0-18.0The [facility] HospitalComment on above:Performed By: #### LIPID, BMP #### [facility] [address] [address] [address] Jag WaldropUrea nitrogen/Creatinine [Mass ratio]27.6 mg/mgNormalThe [facility] HospitalComment on above:Performed By: #### LIPID, BMP #### [facility] [address] [address] [address] Jag WaldropVITAMIN B12on [id number] (Vitamin B12) [Mass/Vol]267.0 pg/dCDudepi169.0-986.0The [facility] HospitalComment on above:Performed By: #### LIPID, BMP #### [facility] [address] [place] [address] Dr. Jag WaldropXR CSPINE 2_3 VIEWSon [id number] CSPINE 2_3 VIEWSEXAMINATION: XR CSPINE 2_3 VIEWS HISTORY: Open wound of neck [...] Electronically authenticated by: KATHY LOBATO Date: 2022-01-12 09:39Wayne HospitalBNPon [id number] peptide B (Bld) [Mass/Vol]283.0 pg/mLNormal<=900.0The [facility] HospitalComment on above:Performed By: #### POCGLUC #### [facility] [address] [place] [address] Dr. Jag Burris AUTO DIFFon [id number] #0.1 103/ulNormal0.0-0.1The [facility] HospitalComment on above:Performed By: #### LIPID, BMP #### [facility] [address] [place] [address] Dr. Jag WaldropBasophils/100 WBC (Bld)0.8 %Normal0.2-2.0[facility] Comment on above:Performed By: #### LIPID, BMP #### [facility] [address] [place] [address] Dr. Jag Aguero #0.3 103/ulNormal0.0-0.7The [facility] HospitalComment on above: Performed By: #### LIPID, BMP #### [facility] [address] [place] [address] Dr. Jag Hartosinophils/100 WBC (Bld)3.8 %Normal0.9-7.0[facility] Comment on above:Performed By: #### LIPID, BMP #### [facility] [address] [place] [address] Dr. Jag Hartrythrocyte distribution width (RBC) [Ratio]13.2 %Ctfgxs99.0-15.0 The [facility] HospitalComment on above:Performed By: #### LIPID, BMP #### [facility] [address] [place] [address] Dr. Jag WaldropHematocrit (Bld) [Volume fraction]34.8 %Critically low36.0-48.0 The [facility] HospitalComment on above:Performed By: #### LIPID, BMP #### [facility] [address] [place] [address] Dr. Jag WaldropHemoglobin (Bld) [Mass/Vol]10.6 g/dLCritically low12.0-16.0The [facility] HospitalComment on above:Performed By: #### LIPID, BMP #### [facility] [address] [place] [address] Dr. Jag Del Real #0.02 10e3/ulNormal0.00-0.03The [facility] HospitalComment on above:Performed By: #### LIPID, BMP #### [facility] [address] [place] [address] Dr. Jag Del Real %0.3 %Normal0.0-0.5The [facility] HospitalComment on above: Performed By: #### LIPID, BMP #### [facility] [address] [place] [address] Dr. Jag Boo #1.7 103/ulNormal1.2-3.8The [facility] HospitalComment on above:Performed By: #### LIPID, BMP #### [facility] [address] [place] [address] Dr. Jag Mccurdyhocytes/100 WBC (Bld)23.8 %Mxvqld44.5-60.0The [facility] HospitalComment on above:Performed By: #### LIPID, BMP #### [facility] [address] [place] [address] Dr. Jag CaputoUAL DIFF REQNONormalThe [facility] HospitalComment on above: Performed By: #### LIPID, BMP #### [facility] [address] [place] [address] Dr. Jag Mc (RBC) [Entitic mass]29.1 sqWvzqav01.7-34.0The [facility] HospitalComment on above:Performed By: #### LIPID, BMP #### [facility] [address] [place] [address] Dr. Jag LujanHC (RBC) [Mass/Vol]30.5 g/cMYmxydg30.9-35.2The [facility] HospitalComment on above:Performed By: #### LIPID, BMP #### [facility] [address] [place] [address] Dr. Jag LujanV (RBC) [Entitic vol]95.6 pRBipufb78.0-99.0The [facility] HospitalComment on above:Performed By: #### LIPID, BMP #### [facility] [address] [place] [address] Dr. Jag Meléndez #0.7 103/ulNormal0.3-0.8The [facility] HospitalComment on above:Performed By: #### LIPID, BMP #### [facility] [address] [place] [address] Dr. Jag Ayonocytes/100 WBC (Bld)9.3 %Normal1.7-12.0The [facility] on above:Performed By: #### LIPID, BMP #### [facility] [address] [place] [address] #4.4 103/ulNormal1.4-6.5The [facility] HospitalComment on above:Performed By: #### LIPID, BMP #### [facility] [address] [place] [address] Dr. Jag Hawkinsutrophils/100 WBC (Bld)62.0 %Fiwmfh49.0-75.0The [facility] HospitalComment on above:Performed By: #### LIPID, BMP #### [facility] [address] [place] [address] Dr. Jag Cooneylet mean volume (Bld) [Entitic vol]11.5 fLNormal9.5-13.5The [facility] HospitalComment on above:Performed By: #### LIPID, BMP #### [facility] [address] [place] [address] Dr. Jag GonzalezT235 103/woOwuovf005-532Agd [facility] HospitalComment on above: Performed By: #### LIPID, BMP #### [facility] [address] [address] [address] Jag WaldropRBC3.64 106/ulCritically low4.20-5.40The [facility] HospitalComment on above:Performed By: #### LIPID, BMP #### [facility] [address] [place] [address] Dr. Jag WaldropWBC7.1 103/ulNormal4.0-11.0The [facility] HospitalComment on above: Performed By: #### LIPID, BMP #### [facility] [address] [place] [address] Dr. Jag Bass [id number] mg/dLCritically high<=1.0The [facility] HospitalComment on above:Performed By: #### BMP #### [facility] [address] [place] [address] Dr. Jag Peralta-19 PCR ([facility])on [id number]-CoV-2 (COVID-19) RNA PRINCE+probe Ql (Unsp spec)Not detectedNormalNOT DETECTEDThe [facility] Comment on above:Result Comment: This test is not yet approved or cleared by the [place] FDA. When there are no FDA-approved or cleared tests available, and other criteria are met, FDA can make tests available under an emergency access mechanism called an Emergency Use Authorization (EUA). The EUA for this test is supported by the [place] of Health and Human Service's (HHS's) declaration that circumstances exist to justify the emergency use of in vitro diagnostics for the detection and/or diagnosis of the virus that causes COVID- 19. This EUA will remain in effect (meaning [...] of clinical signs and symptoms consistent with SARS-CoV-2.Performed By: #### LIPID, BMP #### [facility] [address] [place] [address] Dr. Jag WaldropPROF CHEM 8 (BAS METB)on [id number] gap [Moles/Vol]13.3 mmol/LNormalThe [facility] CenterComment on above:Performed By: #### BMP #### [facility] [address] [address] [address] Jag WaldropCalcium [Mass/Vol]8.7 mg/dLNormal8.5-10.1The [facility] Comment on above:Performed By: #### BMP #### [facility] [address] [address] [address] Jag WaldropChloride [Moles/Vol]107 mmol/IZutcpl55-258Nkm [facility] Comment on above:Performed By: #### BMP #### [facility] [address] [address] [address] Jag WaldropCO2 [Moles/Vol]23.2 mmol/VFnhgpe64.0-32.0The [facility] Comment on above:Performed By: #### BMP #### [facility] [address] [address] [address] Jag WaldropCreatinine [Mass/Vol]1.55 mg/dLCritically high0.55-1.02The [facility] HospitalComment on above:Performed By: #### BMP #### [facility] [address] [address] [address] Rm ChangEGFR-AF TWAHPPHP38 mL/min/1.62h9Ricmcrrfay low>=60The [facility] HospitalComment on above:Performed By: #### BMP #### [facility] [address] [address] [address] Rm ChangEGFR-NON AF RRQFCXFR27 mL/min/1.83a6Wgoradlbkv low>=60The [facility] HospitalComment on above:Performed By: #### BMP #### [facility] [address] [address] [address] Jag WaldropGlucose [Mass/Vol]123 mg/dLCritically diqe54-346Pyf [facility] HospitalComment on above:Performed By: #### BMP #### [facility] [address] [address] [address] Jag WaldropPotassium [Moles/Vol]4.5 mmol/LNormal3.5-5.1The [facility] Comment on above:Performed By: #### BMP #### [facility] [address] [address] [address] Jag WaldropSodium [Moles/Vol]139 mmol/WYreoyr222-911Pmt [facility] Comment on above:Performed By: #### BMP #### [facility] [address] [address] [address] Jag WaldropUrea nitrogen [Mass/Vol]36.0 mg/dLCritically high7.0-18.0The [facility] HospitalComment on above:Performed By: #### BMP #### [facility] [address] [address] [address] Jag Roche nitrogen/Creatinine [Mass ratio]23.2 mg/mgNoMemorial HospitalComment on above:Performed By: #### BMP #### [facility] [address] [address] [address] Jag Bangura RATE WESTERGRENon 50-61-0292MUG RATE26 mm/hrNormal<=30The [facility] HospitalComment on above:Performed By: #### SEDR #### [facility] [address] [place] [address] Dr. Jag WaldropXR CHEST 2 Von [id number] CHEST 2 VEXAMINATION: XR CHEST 2 V HISTORY: Dyspnea COMPARISON: 04/23/2021 TECHNIQUE: PA and lateral FINDINGS: LUNGS: No significant pulmonary parenchymal abnormalities. VASCULATURE: No increased pulmonary vasculature. PLEURA: No pneumothorax, effusion, or pleural thickening. CARDIAC: Moderate stable cardiomegaly. MEDIASTINUM: No visible mass or adenopathy. BONES: No fracture or visible bone lesion. OTHER: Negative. IMPRESSION: Stable cardiomegaly, clear lungs Electronically authenticated by: ALEX ALLEN Date: 2021-12-21 18:35NoMemorial HospitalOVA AND PARASITE EXAMINATIONon [id number] + Parasite Exam Final reportNoMemorial HospitalComment on above:Result Comment: These results were obtained using wet preparation(s) and trichrome stained smear. This test does not include testing for Cryptosporidium parvum, Cyclospora, or Microsporidia.Performed By: #### LIPID, BMP #### [facility] [address] [place] [address] Dr. Jag Klein 1CSelect Medical Specialty Hospital - ColumbusCompine rest [facility] on above:Result Comment: No ova, cysts, or parasites seen. . One negative specimen does not rule out the possibility of a parasitic infection.Performed By: #### LIPID, BMP #### [facility] [address] [place] [address] Dr. Jag Aranda CULTUREon [id number] CultureFinal reportNormal [facility] CenterComp[facility] on above:Performed By: #### CXSTOOL #### [facility] [address] [place] [address] Dr. Jag booth Shiga Toxin EIANegativeNormalNegativeThe [facility] Comment on above:Performed By: #### CXSTOOL #### [facility] [address] [place] [address] Dr. Jag Klein [address] [place], [place] [address] on above:Result Comment: No Salmonella or Shigella recovered.Performed By: #### CXSTOOL #### [facility] [address] [place] [address] Dr. Jag Klein Comment: No Campylobacter species isolated. Salmonella/Shigella ScreenFinal reportNoMemorial HospitalComment on above:Performed By: #### CXSTOOL #### [facility] [address] [place] [address] Dr. Jag Sandoval PANEL (PCR)on [id number] F 40/41Not detectedNormal NOT DETECTEDThe [facility] HospitalComment on above:Performed By: #### ERUR #### [facility] [address] [place] [address] Dr. Jag KaplanovirusNot detectedNormalNOT DETECTEDThe [facility] Comment on above:Performed By: #### ERUR #### [facility] [address] [address] [address] Jag Handley. Diff toxin A/BDetectedCritically abnormalNOT DETECTEDThe [facility] HospitalComment on above:Performed By: #### ERUR #### [facility] [address] [address] [address] Jag WaldropCampylobacterNot detectedNormalNOT DETECTEDThe [facility] Comment on above:Performed By: #### ERUR #### [facility] [address] [address] [address] Jag WaldropCryptosporidiumNot detectedNormalNOT DETECTEDThe [facility] HospitalComment on above:Performed By: #### ERUR #### [facility] [address] [place] [address] Dr. Jag Meeks. CayetanensisNot detectedNormalNOT DETECTEDThe [facility] HospitalComp[facility] rest [facility] on above:Performed By: #### ERUR #### [facility] [address] [address] [address] Jag Matute Coli [id number] ApplicableNormalNot ApplicableThe [facility] HospitalComp[facility] on above:Performed By: #### ERUR #### [facility] [address] [address] [address] Jag Matute histolyticaNot detectedNormalNOT DETECTEDThe [facility] Comment on above:Performed By: #### ERUR #### [facility] [address] [address] [address] Jag HartAECNot detectedNormalNOT DETECTEDThe [facility] HospitalComment on above:Performed By: #### ERUR #### [facility] [address] [address] [address] Jag HartIECNot detectedNormalNOT DETECTEDThe [facility] HospitalComment on above:Performed By: #### ERUR #### [facility] [address] [address] [address] Jag HartPECNot detectedNormalNOT DETECTEDThe [facility]Comp[facility] on above:Performed By: #### ERUR #### [facility] [address] [address] [address] Jag Dos Santosot detectedNormalNOT DETECTEDThe [facility] CenterComment on above:Performed By: #### ERUR #### [facility] [address] [address] [address] Jag Gavin LambliaNot detectedNormalNOT DETECTEDThe [facility] Comment on above:Performed By: #### ERUR #### [facility] [address] [address] [address] Jag Jaquez CONTROLSTwin City HospitalComment on above:Performed By: #### ERUR #### [facility] [address] [address] [address] Jag TEJEDA HEADERGI [facility] Comment on above:Performed By: #### ERUR #### [facility] [address] [place] [address] Dr. Jag Faye ECOLIGI PANEL DIARRHEAGENIC E.COLI / SHIGELLAWayne HospitalComment on above:Performed By: #### ERUR #### [facility] [address] [place] [address] Dr. Jag Faye INFOHolmes County Joel Pomerene Memorial HospitalComment on above: Result Comment: EAEC- Enteroaggregative E. Coli EPEC- Enteropathogenic E. Coli ETEC- Enterotoxigenic E. Coli lt/st STEC- Shigella-like toxin-producing E. Coli stx1/stx2 EIEC- Shigella/Enteroinvasive E. ColiPerformed By: #### ERUR #### [facility] [address] [place] [address] Dr. Jag Faye PARASITESGI PANEL [facility] Comment on above:Performed By: #### ERUR #### [facility] [address] [place] [address] Dr. Jag Faye VIRUSGI PANEL [facility] HospitalComment on above:Performed By: #### ERUR #### [facility] [address] [address] [address] Jag Chadwickrovirus GI/GIINot detectedNormalNOT DETECTEDThe [facility] HospitalComment on above:Performed By: #### ERUR #### [facility] [address] [address] [address] Jag Carrera. ShigelloidesNot detectedNormalNOT DETECTEDThe [facility] HospitalComment on above:Performed By: #### ERUR #### [facility] [address] [address] [address] Jag WaldropRotavirus ANot detectedNormalNOT DETECTEDThe [facility] Comment on above:Performed By: #### ERUR #### [facility] [address] [address] [address] Jag WaldropSalmonellaNot detectedNormalNOT DETECTEDThe [facility] Comment on above:Performed By: #### ERUR #### [facility] [address] [address] [address] Jag WaldropSapovirusNot detectedNormalNOT DETECTEDThe [facility] Comment on above:Performed By: #### ERUR #### [facility] [address] [address] [address] Jag WaldropSTECNot detectedNormalNOT DETECTEDThe [facility] HospitalComment on above:Performed By: #### ERUR #### [facility] [address] [address] [address] Jag JallohbrioNot detectedNormalNOT DETECTEDThe [facility] HospitalComment on above:Performed By: #### ERUR #### [facility] [address] [address] [address] Jag Dickeyio CholeraNot detectedNormalNOT DETECTEDThe [facility] Comment on above:Performed By: #### ERUR #### [facility] [address] [address] [address] Jag Hanna. EnterocoliticaNot detectedNormalNOT DETECTEDThe [facility] HospitalComment on above:Performed By: #### ERUR #### [facility] [address] [address] [address] Jag Hernandez BLD IMMUNO SCREENon [id number] BLOODNegativeNormal NEGATIVEThe [facility] HospitalComment on above:Performed By: #### LIPID, BMP #### [facility] [address] [address] [address] Jag WaldropPROF CHEM 8 (BAS METB)on [id number] gap [Moles/Vol]15.5 mmol/LNormalThe [facility] HospitalComment on above:Performed By: #### POCGLUC #### [facility] [address] [address] [address] Jga WaldropCalcium [Mass/Vol]9.1 mg/dLNormal8.5-10.1The [facility] Comment on above:Performed By: #### POCGLUC #### [facility] [address] [address] [address] Jag WaldropChloride [Moles/Vol]106 mmol/GFrjlip62-009Ssv [facility] Comment on above:Performed By: #### POCGLUC #### [facility] [address] [address] [address] Jag WaldropCO2 [Moles/Vol]25.4 mmol/HLdkjjw43.0-32.0The [facility] Comment on above:Performed By: #### POCGLUC #### [facility] [address] [address] [address] Jag WaldropCreatinine [Mass/Vol]1.18 mg/dLCritically high0.55-1.02The [facility] HospitalComment on above:Performed By: #### POCGLUC #### [facility] [address] [address] [address] Jag HartGFR-AF RMEWBQIH33 mL/min/1.25p0Logclzlord low>=60The [facility] HospitalComment on above:Performed By: #### POCGLUC #### [facility] [address] [address] [address] Jag HartGFR-NON AF YGTBFJOG86 mL/min/1.72j1Gbhywqqvhy low>=60The [facility] HospitalComment on above:Performed By: #### POCGLUC #### [facility] [address] [address] [address] Jag WaldropGlucose [Mass/Vol]141 mg/dLCritically xrqn91-649Ayq [facility] HospitalComment on above:Performed By: #### POCGLUC #### [facility] [address] [address] [address] Jag WaldropPotassium [Moles/Vol]3.9 mmol/LNormal3.5-5.1[facility] Comment on above:Performed By: #### POCGLUC #### [facility] [address] [address] [address] Jag WladropSodium [Moles/Vol]143 mmol/HGodrmr771-370Xyc [facility] Comment on above:Performed By: #### POCGLUC #### [facility] [address] [address] [address] Jag WaldropUrea nitrogen [Mass/Vol]22.0 mg/dLCritically high7.0-18.0The [facility] HospitalComment on above:Performed By: #### POCGLUC #### [facility] [address] [address] [address] Jag Roche nitrogen/Creatinine [Mass ratio]18.6 mg/mgNoMemorial HospitalComment on above:Performed By: #### POCGLUC #### [facility] [address] [address] [address] Jag WaldropXR KUB 1 VIEWon [id number] KUB 1 VIEWEXAMINATION: XR KUB 1 VIEW HISTORY: Abdominal pain [...] Electronically authenticated by: ALEX ALLEN Date: 2021-10-29 09:01[facility] HospitalCULTURE URINEon [id number] URINECulture Observations: LIGHT GROWTH OF MIXED GENITAL SANDEE. NO POTENTIAL PATHOGENS SEEN.NormalThe [facility] HospitalComment on above:Performed By: #### ERUR #### [facility] [address] [address] [address] Jag WaldropGLYCOHEMOGLOBIN A1Con [id number] RECOMMENDATIONSEE BELOWNormvt The [facility] HospitalComment on above:Result Comment: ADA RECOMMENDED LIMIT 4.0 - 6.0 ADA THERAPEUTIC TARGET < 7.0 ACTION SUGGESTED > 7.0Performed By: #### ERUR #### [facility] [address] [address] [address] Jag WaldropGlucose [Mass/Vol]157 mg/dLNormMercy Health Tiffin HospitalComment on above:Performed By: #### ERUR #### [facility] [address] [place] [address] Dr. Jag WaldropHbA1c (Bld) [Mass fraction]7.1 %Critically high4.5-6.2The [facility] HospitalComment on above:Performed By: #### ERUR #### [facility] [address] [address] [address] Jag WaldropLIPID PROFILEon [id number] RATIO NORMSEE BELOWWayne HospitalComment on above:Result Comment: 3.3 - 4.4 LOW RISK 4.4 - 7.1 AVERAGE RISK 7.1 - 11.0 MODERATE RISK >11.0 HIGH RISKPerformed By: #### POCGLUC #### [facility] [address] [place] [address] Dr. Jag WaldropCholesterol [Mass/Vol]150 mg/dLNormal<=200The [facility] Comment on above:Performed By: #### POCGLUC #### [facility] [address] [address] [address] Jag WaldropCholesterol in HDL [Mass/Vol]39 mg/dLCritically rdz10-16Gyz [facility] HospitalComment on above:Performed By: #### POCGLUC #### [facility] [address] [address] [address] Jag WaldropCholesterol in LDL [Mass/Vol]82.6 mg/dLWayne HospitalComment on above:Performed By: #### POCGLUC #### [facility] [address] [place] [address] Dr. Jag Bronwleeesterol.total/Cholesterol in HDL [Mass ratio]3.8 {ratio} NormalThe [facility] HospitalComment on above:Performed By: #### POCGLUC #### [facility] [address] [place] [address] Dr. Jag Banuelos NORMAL> or = 60 mg/dl - LOW CARDIOVASCULAR RISK <40 mg/dl - HIGH CARDIOVASCULAR RISKWayne HospitalComment on above:Performed By: #### POCGLUC #### [facility] [address] [place] [address] Dr. Jag WaldropLDL CALC NORMALSEE BELOWWayne HospitalComment on above:Result Comment: <100 mg/dl OPTIMAL 100 - 129 mg/dl NEAR OR ABOVE OPTIMAL 130 - 159 mg/dl BORDERLINE HIGH 160 - 189 mg/dl HIGH >190 mg/dl VERY HIGH Performed By: #### POCGLUC #### [facility] [address] [place] [address] Dr. Jag WaldropTriglyceride [Mass/Vol]142 mg/dLNormal<=150The [facility] Comment on above:Performed By: #### POCGLUC #### [facility] [address] [place] [address] Dr. Jag SaeedLDL CALC28.4 mg/dLNoMemorial HospitalComment on above: Performed By: #### POCGLUC #### [facility] [address] [place] [address] Dr. Jag WaldropPROF CHEM 8 (BAS METB)on [id number] gap [Moles/Vol]16.0 mmol/LNormalThe [facility] CenterCompine rest christ[facility] mental health services on above:Performed By: #### POCGLUC #### [facility] [address] [place] [address] Dr. Jag WaldropCalcium [Mass/Vol]8.7 mg/dLNormal8.5-10.1The [facility] Comment on above:Performed By: #### POCGLUC #### [facility] [address] [address] [address] Jag WaldropChloride [Moles/Vol]108 mmol/LCritically hmbl03-466Yzz [facility] HospitalComment on above:Performed By: #### POCGLUC #### [facility] [address] [address] [address] Jag WaldropCO2 [Moles/Vol]22.1 mmol/CZjmrvo72.0-32.0The [facility] Comment on above:Performed By: #### POCGLUC #### [facility] [address] [place] [address] Dr. Jag WaldropCreatinine [Mass/Vol]1.72 mg/dLCritically high0.55-1.02The [facility] HospitalComment on above:Performed By: #### POCGLUC #### [facility] [address] [place] [address] Dr. Rm ChangEGFR-AF AGUQYGEA89 mL/min/1.02o0Bubtlnjzbg low>=60The [facility] HospitalComment on above:Performed By: #### POCGLUC #### [facility] [address] [place] [address] Dr. Jag HartGFR-NON AF IHYQKVKI74 mL/min/1.05d5Vmpxuaavnl low>=60The [facility] HospitalComment on above:Performed By: #### POCGLUC #### [facility] [address] [place] [address] Dr. Jag WaldropGlucose [Mass/Vol]144 mg/dLCritically sixe78-511Lqc [facility] HospitalComment on above:Performed By: #### POCGLUC #### [facility] [address] [place] [address] Dr. Jag WaldropPotassium [Moles/Vol]5.1 mmol/LNormal3.5-5.1The [facility] Comment on above:Performed By: #### POCGLUC #### [facility] [address] [place] [address] Dr. Jag Pinedaum [Moles/Vol]141 mmol/RCsedpe699-373Htc [facility] Comment on above:Performed By: #### POCGLUC #### [facility] [address] [address] [address] Jag Roche nitrogen [Mass/Vol]41.0 mg/dLCritically high7.0-18.0The [facility] CenterComment on above:Performed By: #### POCGLUC #### [facility] [address] [address] [address] Jag Roche nitrogen/Creatinine [Mass ratio]23.8 mg/mgNoMemorial HospitalComment on above:Performed By: #### POCGLUC #### [facility] [address] [place] [address] Dr. Jag Murillo (CLEAN/CATCH) PASTEURIZING MACHINE OPERATOR/MICRO IF IND.on [id number] Ql (U) NegativeNormalNEGCoshocton Regional Medical CenterComment on above:Performed By: #### LIPID, BMP #### [facility] [address] [address] [address] Jag WaldropClarity (U)SL CLOUDYAbnormalCLEARThUniversity Hospitals Lake West Medical CenterComment on above:Performed By: #### LIPID, BMP #### [facility] [address] [address] [address] Jag Alejandrelor (U)LT. YELLOWNormalYELLOWThe [facility] CenterComment on above:Performed By: #### LIPID, BMP #### [facility] [address] [place] [address] Dr. Jag WaldropGlucose Ql (U)NegativeNormalNEGATIVEThe [facility] CenterComment on above:Performed By: #### LIPID, BMP #### [facility] [address] [address] [address] Jag WaldropHemoglobin Ql (U)TRACE-INTACTAbnormalNEGCoshocton Regional Medical CenterComment on above:Performed By: #### LIPID, BMP #### [facility] [address] [place] [address] Dr. Jag Brown Ql (U)NegativeNormalNEGATIVEThe [facility] HospitalComment on above:Performed By: #### LIPID, BMP #### [facility] [address] [address] [address] Jag CarbajalOCYTESSMALLAbnormalNEGATIVEThe [facility] HospitalComment on above:Performed By: #### LIPID, BMP #### [facility] [address] [address] [address] Jag Paul Ql (U)NegativeNormalNEGATIVEThe [facility] HospitalComment on above:Performed By: #### LIPID, BMP #### [facility] [address] [address] [address] Jag Rock (U)5.5 [pH]Normal5-9The [facility] HospitalComment on above: Performed By: #### LIPID, BMP #### [facility] [address] [address] [address] Jag WaldropSPEC GRAVITY1.413Dosmbh8.005-<=1.025The [facility] HospitalComment on above:Performed By: #### LIPID, BMP #### [facility] [address] [address] [address] Jag Murillo PROTEINNegativeNormalNEGATIVE/ TRACEThe [facility] Comment on above:Performed By: #### LIPID, BMP #### [facility] [address] [address] [address] Jag Mathis MICRO INDINDICATEDNormalThe [facility] HospitalComment on above: Performed By: #### LIPID, BMP #### [facility] [address] [address] [address] Jag He Qn (U)0.2 {Chris'U}/dLNormal0.2 - 1.0The [facility] HospitalCompine rest [facility] on above:Performed By: #### LIPID, BMP #### [facility] [address] [address] [address] Jag Baez MICROSCOPIC ONLYon [id number]A SEEN [facility] on above:Performed By: #### LIPID, BMP #### [facility] [address] [place] [address] Dr. Jag Cardona identified Cx Nom (U)INDICATEDNoalThUniversity Hospitals Lake West Medical CenterCompine rest christ[facility] mental health services on above:Performed By: #### LIPID, BMP #### [facility] [address] [place] [address] Dr. Jag Adkins SEENNormalNONE SEENCleveland Clinic Lutheran Hospital on above:Performed By: #### LIPID, BMP #### [facility] [address] [place] [address] Dr. Jag Weathers LM Nom (Urine sed)NONE SEENNormalNONE SEENCleveland Clinic Lutheran Hospital on above:Performed By: #### LIPID, BMP #### [facility] [address] [place] [address] Dr. Rm ChangEpithelial cells LM Ql (Urine sed)RARENormalNONE SEEN /RAREThe [facility] on above:Performed By: #### LIPID, BMP #### [facility] [address] [place] [address] Dr. Jag SotoACEAbnormalNONE SEENCleveland Clinic Lutheran Hospital on above:Performed By: #### LIPID, BMP #### [facility] [address] [place] [address] Dr. Jag DupreeLgbmqNRX2-4Mwfdid1-9Vnu [facility] on above:Performed By: #### LIPID, BMP #### [facility] [address] [place] [address] Dr. Jag WaldropWBC2-5AbnormalNONE SEENCleveland Clinic Lutheran Hospital on above: Performed By: #### LIPID, BMP #### [facility] [address] [place] [address] Dr. Jag Cardoso [id number] peptide B (Bld) [Mass/Vol]52.0 pg/mL Normal<=900.0The [facility] on above:Performed By: #### LIPID, BMP #### [facility] [address] [place] [address] Dr. Jag Burris AUTO DIFFon [id number] #0.1 103/ulNormal0.0-0.1The [facility] CenterComment on above:Performed By: #### POCGLUC #### [facility] [address] [place] [address] Dr. Jag WaldropBasophils/100 WBC (Bld)0.8 %Normal0.2-2.0The [facility] Comment on above:Performed By: #### POCGLUC #### [facility] [address] [place] [address] Dr. Jag Aguero #0.2 103/ulNormal0.0-0.7The [facility] HospitalComment on above: Performed By: #### POCGLUC #### [facility] [address] [place] [address] Dr. Jag Hartosinophils/100 WBC (Bld)3.0 %Normal0.9-7.0The [facility] Comment on above:Performed By: #### POCGLUC #### [facility] [address] [place] [address] Dr. Jag Hartrythrocyte distribution width (RBC) [Ratio]14.2 %Aouvpj60.0-15.0 The [facility] CenterComment on above:Performed By: #### POCGLUC #### [facility] [address] [place] [address] Dr. Jag WaldropHematocrit (Bld) [Volume fraction]35.9 %Critically low36.0-48.0 The [facility] HospitalComment on above:Performed By: #### POCGLUC #### [facility] [address] [place] [address] Dr. Jag WaldropHemoglobin (Bld) [Mass/Vol]11.0 g/dLCritically low12.0-16.0The [facility] CenterComment on above:Performed By: #### POCGLUC #### [facility] [address] [place] [address] Dr. Jag Del Real #0.03 10e3/ulNormal0.00-0.03The [facility] HospitalComment on above:Performed By: #### POCGLUC #### [facility] [address] [place] [address] Dr. Jag Del Real %0.4 %Normal0.0-0.5The [facility] HospitalComment on above: Performed By: #### POCGLUC #### [facility] [address] [place] [address] Dr. Jag Boo #2.8 103/ulNormal1.2-3.8The [facility] HospitalComment on above:Performed By: #### POCGLUC #### [facility] [address] [place] [address] Dr. Jag Mccurdyhocytes/100 WBC (Bld)37.9 %Xappeh73.5-60.0The [facility] HospitalComment on above:Performed By: #### POCGLUC #### [facility] [address] [place] [address] Dr. Jag CaputoUAL DIFF REQNONormalThe [facility] HospitalComment on above: Performed By: #### POCGLUC #### [facility] [address] [place] [address] Dr. Jag Mc (RBC) [Entitic mass]28.7 rcOuvsxb01.7-34.0The [facility] HospitalComment on above:Performed By: #### POCGLUC #### [facility] [address] [place] [address] Dr. Jag Lujan (RBC) [Mass/Vol]30.6 g/jMYdzawz99.9-35.2The [facility] HospitalComment on above:Performed By: #### POCGLUC #### [facility] [address] [place] [address] Dr. Jag Hu (RBC) [Entitic vol]93.7 iCFmzayj01.0-99.0The [facility] HospitalComment on above:Performed By: #### POCGLUC #### [facility] [address] [place] [address] Dr. Jag Meléndez #0.5 103/ulNormal0.3-0.8The [facility] HospitalComment on above:Performed By: #### POCGLUC #### [facility] [address] [address] [address] Jag Ayonocytes/100 WBC (Bld)7.4 %Normal1.7-12.0The [facility] Comment on above:Performed By: #### POCGLUC #### [facility] [address] [place] [address] #3.7 103/ulNormal1.4-6.5The [facility] HospitalComment on above:Performed By: #### POCGLUC #### [facility] [address] [place] [address] Dr. Jag Hawkinsutrophils/100 WBC (Bld)50.5 %Xsxxlf06.0-75.0The [facility] HospitalComment on above:Performed By: #### POCGLUC #### [facility] [address] [place] [address] Dr. Jag Cárdenas mean volume (Bld) [Entitic vol]10.2 fLNormal9.5-13.5The [facility] HospitalComment on above:Performed By: #### POCGLUC #### [facility] [address] [place] [address] Dr. Jag WaldropPLT261 103/bmKawtww520-616Ztv [facility] HospitalComment on above: Performed By: #### POCGLUC #### [facility] [address] [place] [address] Dr. Jag WaldropRBC3.83 106/ulCritically low4.20-5.40The [facility] HospitalComment on above:Performed By: #### POCGLUC #### [facility] [address] [place] [address] Dr. Jag WaldropWBC7.3 103/ulNormal4.0-11.0The [facility] HospitalComment on above: Performed By: #### POCGLUC #### [facility] [address] [address] [address] Jag WaldropPOINT OF CARE GLUCOSEon 93-59-2784Wffixas [Mass/Vol]156 mg/dL Critically eidf07-223EgvThe [facility] CenterComment on above:Performed By: #### POCGLUC #### [facility] [address] [address] [address] Jag WaldropGlucose [Mass/Vol]304 mg/dLCritically xrvr84-150Ncm [facility] HospitalComment on above:Performed By: #### POCGLUC #### [facility] [address] [address] [address] Jag WaldropGlucose [Mass/Vol]77 mg/cALjddwn29-035HdyThe [facility] Comment on above:Performed By: #### ERUR #### [facility] [address] [address] [address] Jag WaldropGlucose [Mass/Vol]136 mg/dLCritically pavc58-562Nsw [facility] HospitalComment on above:Performed By: #### ERUR #### [facility] [address] [address] [address] Jag WaldropGlucose [Mass/Vol]73 mg/dLCritically jkt30-276ZwrThe [facility] CenterComment on above:Performed By: #### ERUR #### [facility] [address] [address] [address] Jag WaldropPROF CHEM 8 (BAS METB)on 85-09-3136Yegtd gap [Moles/Vol]15.5 mmol/LNormalThe [facility] HospitalComment on above:Performed By: #### POCGLUC #### [facility] [address] [address] [address] Jag WaldropCalcium [Mass/Vol]8.3 mg/dLCritically low8.5-10.1The [facility] HospitalComment on above:Performed By: #### POCGLUC #### [facility] [address] [address] [address] Jag WaldropChloride [Moles/Vol]108 mmol/LCritically mmmc17-972Rpc [facility] HospitalComment on above:Performed By: #### POCGLUC #### [facility] [address] [address] [address] Jag WaldropCO2 [Moles/Vol]18.9 mmol/LCritically low21.0-32.0The [facility] HospitalComment on above:Performed By: #### POCGLUC #### [facility] [address] [address] [address] Jag WaldropCreatinine [Mass/Vol]1.43 mg/dLCritically high0.55-1.02The [facility] HospitalComment on above:Performed By: #### POCGLUC #### [facility] [address] [address] [address] Jag HartGFR-AF VEYFDVHV45 mL/min/1.98u1Nfheuzlhld low>=60The [facility] HospitalComment on above:Performed By: #### POCGLUC #### [facility] [address] [address] [address] Jag HartGFR-NON AF EQGOFGDI08 mL/min/1.28m2Zddhzdpgsr low>=60The [facility] HospitalComment on above:Performed By: #### POCGLUC #### [facility] [address] [address] [address] Jag WaldropGlucose [Mass/Vol]269 mg/dLCritically gbjh77-205Uzs [facility] HospitalComment on above:Performed By: #### POCGLUC #### [facility] [address] [address] [address] Jag WaldropPotassium [Moles/Vol]5.4 mmol/LCritically high3.5-5.1The [facility] HospitalComment on above:Performed By: #### POCGLUC #### [facility] [address] [address] [address] Jag WaldropSodium [Moles/Vol]137 mmol/XGljrgf608-756Bxm [facility] Comment on above:Performed By: #### POCGLUC #### [facility] [address] [address] [address] Jag WaldropUrea nitrogen [Mass/Vol]40.0 mg/dLCritically high7.0-18.0The [facility] CenterComment on above:Performed By: #### POCGLUC #### [facility] [address] [address] [address] Jag WaldropUrea nitrogen/Creatinine [Mass ratio]28.0 mg/mgNormalThe [facility] HospitalComment on above:Performed By: #### POCGLUC #### [facility] [address] [address] [address] Jag Bucioon gap [Moles/Vol]14.0 mmol/LNormalThe [facility] Comment on above:Performed By: #### ERUR #### [facility] [address] [address] [address] Jag WaldropCalcium [Mass/Vol]8.9 mg/dLNormal8.5-10.1[facility] Comment on above:Performed By: #### ERUR #### [facility] [address] [address] [address] Jag WaldropChloride [Moles/Vol]110 mmol/LCritically nmap53-806ReeThe [facility] CenterComment on above:Performed By: #### ERUR #### [facility] [address] [address] [address] Jag WaldropCO2 [Moles/Vol]21.1 mmol/RZgszdz53.0-32.0[facility] Comment on above:Performed By: #### ERUR #### [facility] [address] [address] [address] Jag WaldropCreatinine [Mass/Vol]1.32 mg/dLCritically high0.55-1.02The [facility] CenterComment on above:Performed By: #### ERUR #### [facility] [address] [address] [address] Jag HartGFR-AF NTFKGVBU85 mL/min/1.55w5Ctfexlaayd low>=60The [facility] HospitalComment on above:Performed By: #### ERUR #### [facility] [address] [address] [address] Jag HartGFR-NON AF FARJLKVO12 mL/min/1.41c9Yclkpkvvln low>=60The [facility] HospitalComment on above:Performed By: #### ERUR #### [facility] [address] [address] [address] Jag WaldropGlucose [Mass/Vol]79 mg/jIRehpey36-349Cjb [facility] Comment on above:Performed By: #### ERUR #### [facility] [address] [address] [address] Jag WaldropPotassium [Moles/Vol]6.1 mmol/LCritically high3.5-5.1The [facility] CenterComment on above:Result Comment: Test Repeated. Critical Value Verified Performed By: #### ERUR #### [facility] [address] [place] [address] Dr. Jag WaldropSodium [Moles/Vol]140 mmol/VZkczwh490-418Uui [facility] Comment on above:Performed By: #### ERUR #### [facility] [address] [address] [address] Jag WaldropUrea nitrogen [Mass/Vol]45.0 mg/dLCritically high7.0-18.0The [facility] HospitalComment on above:Performed By: #### ERUR #### [facility] [address] [place] [address] Dr. Jag Roche nitrogen/Creatinine [Mass ratio]34.1 mg/mgNormalThe [facility] HospitalComment on above:Performed By: #### ERUR #### [facility] [address] [place] [address] Dr. Jag WaldropBASIC METABOLIC PANELon 60-23-2764Hcuhtfi [Mass/Vol]8.9 mg/dL Normal8.6-10.3The [facility] HospitalComment on above:Order Comment: No: Do not add to previous drawPerformed By: #### 80864, 17547 #### [facility] [address] [place] [address], USAChloride [Moles/Vol]105 mmol/PKqlugb03-792Pqu [facility] HospitalComment on above:Order Comment: No: Do not add to previous drawPerformed By: #### 86594, 19533 #### [facility] [address] [place] [address], USACO2 [Moles/Vol]26 mmol/XFuvgia86-42Lmr [facility] HospitalComment on above:Order Comment: No: Do not add to previous draw Performed By: #### 71840, 97220 #### [facility] [address] [place] [address], USACreatinine [Mass/Vol]0.99 mg/dLNormal0.60-1.20The [facility] HospitalComment on above:Order Comment: No: Do not add to previous drawPerformed By: #### 33487, 48237 #### [facility] [address] [place] [address], USAGFR/1.73 sq M predicted among blacks MDRD (S/P/Bld) [Vol rate/Area]mL/min/{1.73_m2}Normal>60The [facility] Comment on above:Order Comment: No: Do not add to previous drawPerformed By: #### 20682, 44696 #### [facility] [address] [place] [address], USAGFR/1.73 sq M predicted among non-blacks MDRD (S/P/Bld) [Vol rate/Area]mL/min/{1.73_m2}Normal>60The [facility] Comment on above:Order Comment: No: Do not add to previous drawPerformed By: #### 14026, 35329 #### [facility] [address] [place] [address], USAGlucose [Mass/Vol]145 mg/pIGerw55-973Anx [facility] HospitalComment on above:Order Comment: No: Do not add to previous drawPerformed By: #### 34051, 52439 #### [facility] [address] [place] [address], USAPotassium [Moles/Vol]3.7 mmol/LNormal3.5-5.1The [facility] HospitalComment on above:Order Comment: No: Do not add to previous drawPerformed By: #### 45695, 27585 #### [facility] [address] [id number], USASodium [Moles/Vol]139 mmol/VPkgyez947-195Bgh [facility] HospitalComment on above:Order Comment: No: Do not add to previous drawPerformed By: #### 88154, 82178 #### [facility] [address] [place] [address], USAUrea nitrogen [Mass/Vol]26 mg/dLHigh7-25The [facility] HospitalComment on above:Order Comment: No: Do not add to previous drawPerformed By: #### 94390, 98423 #### [facility] [address] [place] [address], [facility] HOSPITALCBC W/DIFFon 94-06-1273WCQ BASOPHILS0.0 10*3/uLNormal 0.0-0.2The [facility] HospitalComment on above:Order Comment: No: Do not add to previous drawPerformed By: #### 21683, 66292 #### [facility] [address] [place] [address], [facility] HOSPITALABS IMM GRANS0.0 10*3/uLNormal0.0-0.2The [facility] HospitalComment on above:Order Comment: No: Do not add to previous drawPerformed By: #### 76953, 75577 #### [facility] [address] [place] [address], USAABS NEUTROPHILS2.3 10*3/uLNormal1.6-7.6The [facility] HospitalComment on above:Order Comment: No: Do not add to previous drawPerformed By: #### 00120, 59996 #### [facility] [address] [place] [address], USABasophils/100 WBC (Bld)0.3 %Normal0.0-1.0The [facility] HospitalComment on above:Order Comment: No: Do not add to previous drawPerformed By: #### 55615, 76402 #### [facility] [address] [place] [address], USAEosinophils (Bld) [#/Vol]0.0 10*3/uLNormal0.0-0.5The [facility] HospitalComment on above:Order Comment: No: Do not add to previous drawPerformed By: #### 46222, 27497 #### [facility] [address] [place] [address], USAEosinophils/100 WBC (Bld)0.0 %Normal0.0-6.0The [facility] HospitalComment on above:Order Comment: No: Do not add to previous drawPerformed By: #### 69670, 36638 #### [facility] [address] [place] [address], USAErythrocyte distribution width (RBC) [Ratio]13.3 %Normal 11.5-15.0The [facility] HospitalComment on above:Order Comment: No: Do not add to previous drawPerformed By: #### 13932, 24518 #### [facility] [address] [facility] [place] [address], USAHematocrit (Bld) [Volume fraction]37.7 %Jibfmv80.0-45.0The [facility] HospitalComment on above:Order Comment: No: Do not add to previous drawPerformed By: #### 23976, 50804 #### [facility] [address] [place] [address], USAHemoglobin (Bld) [Mass/Vol]12.1 g/aJHcvbjq40.0-15.0The [facility] HospitalComment on above:Order Comment: No: Do not add to previous drawPerformed By: #### 45424, 02302 #### [facility] [address] [place] [address], USAIMMATURE GRANS0.2 %Normal0.0-1.0The [facility] HospitalComment on above:Order Comment: No: Do not add to previous draw Performed By: #### 17497, 79830 #### [facility] [address] [place] [address], USALymphocytes (Bld) [#/Vol]3.0 10*3/uLNormal1.2-4.0The [facility] HospitalComment on above:Order Comment: No: Do not add to previous drawPerformed By: #### 49855, 25283 #### [facility] [address] [place] [address], USALymphocytes/100 WBC (Bld)52.0 %High20.0-45.0The [facility] HospitalComment on above:Order Comment: No: Do not add to previous drawPerformed By: #### 58911, 61392 #### [facility] [address] [place] [address], [facility] (RBC) [Entitic mass]28.7 ojVaxrfu19.0-33.0The [facility] HospitalComment on above:Order Comment: No: Do not add to previous drawPerformed By: #### 64433, 10664 #### [facility] [address] [place] [address], [facility]HC (RBC) [Mass/Vol]32.1 g/eLQphxdp84.0-35.0The [facility] HospitalComment on above:Order Comment: No: Do not add to previous drawPerformed By: #### 25376, 77579 #### [facility] [address] [place] [address], USAMCV (RBC) [Entitic vol]89.3 sVNanmcp85.0-98.0The [facility] HospitalComment on above:Order Comment: No: Do not add to previous drawPerformed By: #### 17101, 98011 #### [facility] [address] [place] [address], USAMonocytes (Bld) [#/Vol]0.5 10*3/uLNormal0.1-1.0The [facility] HospitalComment on above:Order Comment: No: Do not add to previous drawPerformed By: #### 77078, 00739 #### [facility] [address] [place] [address], USAMONOS7.9 %Normal5.0-12.0The [facility] HospitalComment on above:Order Comment: No: Do not add to previous drawPerformed By: #### 57650, 52314 #### [facility] [address] [place] [address], USANeutrophils/100 WBC (Bld)39.6 %Low40.0-72.0The [facility] HospitalComment on above:Order Comment: No: Do not add to previous drawPerformed By: #### 70001, 05799 #### [facility] [address] [place] [address], USANucleated RBC/100 WBC (Bld) [Ratio]0 %Normal0-0The [facility] HospitalComment on above:Order Comment: No: Do not add to previous drawPerformed By: #### 53581, 40221 #### [facility] [address] [place] [address], USAPLAT RPB375 10*3/cISpvbxs633-230Eis [facility] HospitalComment on above:Order Comment: No: Do not add to previous draw Performed By: #### 02241, 92752 #### [facility] [address] [place] [address], USARBC (Bld) [#/Vol]4.22 10*6/uLNormal3.80-5.00The [facility] HospitalComment on above:Order Comment: No: Do not add to previous drawPerformed By: #### 21471, 23836 #### [facility] [address] [place] [address], USAWBC (Bld) [#/Vol]5.85 10*3/uLNormal4.00-10.60The [facility] HospitalComment on above:Order Comment: No: Do not add to previous drawPerformed By: #### 83968, 85711 #### [facility] [address] [place] [address], USAPOC GLUCOSE LABon 02-92-7779Gkwlmyn [Mass/Vol]180 mg/dLHigh 70-100The [facility] HospitalComment on above:Performed By: #### 05365, 64403 #### [facility] [address] [place] [address], USAGlucose [Mass/Vol]129 mg/oCXtns98-387Zzu [facility] HospitalComment on above:Performed By: #### 22942, 27351 #### [facility] [address] [place] [address], USAGlucose [Mass/Vol]132 mg/hBEiay56-474Eub [facility] HospitalComment on above:Performed By: #### 41118 #### [facility] [address] [place] [address], USAUFH HEPARIN ASSAYon 52-76-0526ZTAZBDQETPCOVN HEPARIN<0.10 Critically low0.30-0.70The [facility] HospitalComment on above: Result Comment: Rivaroxaban and Apixaban will interfere with the anti Xa assay used to monitor UFH and LMWH. RESULTS CHECKED AND CALLED. ACCURATELY READ BACK [place] JANENE [place]AMARRIPA RN AT [address]554Performed By: #### 15198, 45334 #### [facility] [address] [place] [address], USABASIC METABOLIC PANELon 22-16-1737Fsjxbep [Mass/Vol]8.5 mg/dLLow8.6-10.3The [facility] HospitalComment on above:Order Comment: No: Do not add to previous drawPerformed By: #### 10835 #### [facility] [address] [place] [address], USAChloride [Moles/Vol]104 mmol/QOyxypy55-385Nkd [facility] HospitalComment on above:Order Comment: No: Do not add to previous drawPerformed By: #### 34609 #### [facility] [address] [place] [address], USACO2 [Moles/Vol]27 mmol/KYtotal36-63Pkb [facility] HospitalComment on above:Order Comment: No: Do not add to previous draw Performed By: #### 36481 #### [facility] [address] [place] [address], USACreatinine [Mass/Vol]1.13 mg/dLNormal0.60-1.20The [facility] HospitalComment on above:Order Comment: No: Do not add to previous drawPerformed By: #### 98905 #### [facility] [address] [place] [address], USAGFR/1.73 sq M predicted among blacks MDRD (S/P/Bld) [Vol rate/Area]mL/min/{1.73_m2}Normal>60The [facility] Comment on above:Order Comment: No: Do not add to previous drawPerformed By: #### 49334 #### [facility] [address] [place] [address], USAGFR/1.73 sq M predicted among non-blacks MDRD (S/P/Bld) [Vol rate/Area]52 ml/min/1.73sq mAbnormal>60The [facility] HospitalComment on above:Order Comment: No: Do not add to previous drawPerformed By: #### 39828 #### [facility] [address] [place] [address], USAGlucose [Mass/Vol]131 mg/bIQynw77-390Pwo [facility] HospitalComment on above:Order Comment: No: Do not add to previous drawPerformed By: #### 46679 #### [facility] [address] [place] [address], USAPotassium [Moles/Vol]3.9 mmol/LNormal3.5-5.1The [facility] HospitalComment on above:Order Comment: No: Do not add to previous drawPerformed By: #### 04144 #### [facility] [address] [place] [address], USASodium [Moles/Vol]141 mmol/HZmgwhw457-298Rmj [facility] HospitalComment on above:Order Comment: No: Do not add to previous drawPerformed By: #### 10294 #### [facility] [address] [place] [address], USAUrea nitrogen [Mass/Vol]28 mg/dLHigh7-25The [facility] HospitalComment on above:Order Comment: No: Do not add to previous drawPerformed By: #### 84388 #### [facility] [address] [place] [address], USACBC COMPLETE BLOOD COUNTon 67-24-9041Qfhlwyjqvmh distribution width (RBC) [Ratio]13.5 %Ekfuwq11.5-15.0The [facility] HospitalComment on above:Order Comment: No: Do not add to previous draw Performed By: #### 57350 #### [facility] [address] [place] [address], USAHematocrit (Bld) [Volume fraction]37.1 %Eviwjk86.0-45.0The [facility] HospitalComment on above:Order Comment: No: Do not add to previous drawPerformed By: #### 29022 #### [facility] [address] [place] [address], [facility] HOSPITALHemoglobin (Bld) [Mass/Vol]12.2 g/gXOcjyuu10.0-15.0The [facility] HospitalComment on above:Order Comment: No: Do not add to previous drawPerformed By: #### 87281 #### [facility] [address] [place] [address], [facility] (RBC) [Entitic mass]28.8 lxGzefgn12.0-33.0The [facility] HospitalComment on above:Order Comment: No: Do not add to previous drawPerformed By: #### 79944 #### [facility] [address] [place] [address], [facility] (RBC) [Mass/Vol]32.9 g/mDOjukpg13.0-35.0The [facility] HospitalComment on above:Order Comment: No: Do not add to previous drawPerformed By: #### 75424 #### [facility] [address] [place] [address], [facility]V (RBC) [Entitic vol]87.7 hGHpbbhq80.0-98.0The [facility] HospitalComment on above:Order Comment: No: Do not add to previous drawPerformed By: #### 06911 #### [facility] [address] [place] [address], USANucleated RBC/100 WBC (Bld) [Ratio]0 %Normal0-0The [facility] HospitalComment on above:Order Comment: No: Do not add to previous drawPerformed By: #### 60140 #### [facility] [address] [place] [address], USAPLAT [id number] 10*3/wFEsbqwq833-467Mid [facility] HospitalComment on above:Order Comment: No: Do not add to previous draw Performed By: #### 48814 #### [facility] [address] [place] [address], USARBC (Bld) [#/Vol]4.23 10*6/uLNormal3.80-5.00The [facility] HospitalComment on above:Order Comment: No: Do not add to previous drawPerformed By: #### 27202 #### [facility] [address] [place] [address], USAWBC (Bld) [#/Vol]8.42 10*3/uLNormal4.00-10.60The [facility] HospitalComment on above:Order Comment: No: Do not add to previous drawPerformed By: #### 01876 #### [facility] [address] [place] [address], USACardiovascular Lab Reporton [id number] Lab ReportUnUniversity Hospitals [facility] Patient Name: Sahra [facility] A MR #: [id number] Department of Physician: Marshall Torres M.D. Division of Service Date: 08/23/2018 Cardiology Birthdate: 1970 Adult Cardiovascular Room #: 3AB 029328 [facility] [address] [address] Cardiovascular Laboratory Report FINAL IMPRESSION: 1. Mild [...] 5. Follow up with me in the [facility] post discharge. 6. Further recommendations deferred [...] the left radial artery was obtained. A 6-Libyan Glidesheath was inserted without difficulty. Bilateral selective [...] 30% stenosis adjacent to a prominent septal animal attendants and trainers. There are luminal irregularities throughout the remainder [...] Godoy M.D. Date Trans: 08/24/2018 06:37 A/yadira DN_JN:[id number] cc: Geovanni Brunner D.O. [address] [facility] [address]MzfohbPnmMercy Health Tiffin HospitalHIP RIGHT 1 OR 2 VWS WITH PELVISon [id number] RIGHT 1 OR 2 VWS WITH PELVISUnOhioHealth Mansfield Hospital Department of Radiology [address] [place] [id number] Patient Name: SHERLY HUMPHREYS : 1970 Sex: F Age: Race: White Pt. Location: [address] [place] [address] Patient Status: D Ordered Date: 08/24/2018 12:30:00 [...] findings. Electronically signed by:Kristy Jones. Transcribed by: [email or web address], User Resident: [email or web address] Electronically Signed by: KRISTY JONES @ 08/25/2018 08:05 PM I personally read this/these film(s) with this [facility] HospitalComment on above:Order Comment: No: Do not add to previous drawPOC GLUCOSE LABon 90-90-0768Szwndzy [Mass/Vol]125 mg/hXErcu11-670Qoa [facility] HospitalComment on above:Performed By: #### 21289 #### [facility] [address] [facility] [place] [address], [facility] HOSPITALGlucose [Mass/Vol]150 mg/rJPyfl40-994Bpx [facility] HospitalComment on above:Performed By: #### 18324 #### [facility] [address] [facility] [place] [address], [facility] HOSPITALGlucose [Mass/Vol]119 mg/vZBotg40-132Pgk [facility] HospitalComment on above:Performed By: #### 22117 #### [facility] [address] [place] [address], USAUFH HEPARIN ASSAYon 04-15-7434ZHZRCEUSLZRRLC HEPARIN<0.10 Critically low0.30-0.70The [facility] HospitalComment on above: Result Comment: Rivaroxaban and Apixaban will interfere with the anti Xa assay used to monitor UFH and LMWH. RESULTS CHECKED AND CALLED. ACCURATELY READ BACK BY JANENE [place]IP[place] RN AT 0732Performed By: #### 71052 #### [facility] [address] [place] [address], USAAPTTon 36-77-8096xPST Coag (Bld) [Time]38.8 sHigh25.0-35.0 The [facility] HospitalComment on above:Order Comment: No: Do not add to previous drawResult Comment: ALL RESULTS MUST BE INTERPRETED WITH RESPECT TO BLOOD DRAWING ARTIFACT OR DILUTION ERROR OF ANTICOAGULANT AT THE TIME OF SAMPLING. THE APTT SHOULD NOT BE USED TO MONITOR UNFRACTIONATED HEPARIN THERAPY, THIS LABORATORY NO LONGER HAS AN ESTABLISHED THERAPEUTIC RANGE BASED ON THE APTT. IT IS RECOMMENDED THAT THE UFH - HEPARIN ASSAY (ANTI-XA ACTIVITY) BE USED FOR THIS PURPOSE.Performed By: #### 38116, 16171 #### [facility] [address] [place] [address], [facility] COMPLETE BLOOD COUNTon 42-97-9071Kcflaomgnbu distribution width (RBC) [Ratio]13.3 %Rtrqbm93.5-15.0The [facility] HospitalComment on above:Order Comment: No: Do not add to previous draw Performed By: #### 27617 #### [facility] [address] [place] [address], USAHematocrit (Bld) [Volume fraction]41.4 %Ehuhoc85.0-45.0The [facility] HospitalComment on above:Order Comment: No: Do not add to previous drawPerformed By: #### 08790 #### [facility] [address] [place] [address], USAHemoglobin (Bld) [Mass/Vol]13.8 g/wXDkzawc83.0-15.0The [facility] HospitalComment on above:Order Comment: No: Do not add to previous drawPerformed By: #### 57221 #### [facility] [address] [facility] [place] [address], USAMCH (RBC) [Entitic mass]29.0 nkNcbvsg60.0-33.0The [facility] HospitalComment on above:Order Comment: No: Do not add to previous drawPerformed By: #### 24235 #### [facility] [address] [place] [address], [facility] HOSPITALMCHC (RBC) [Mass/Vol]33.3 g/kGVybagt48.0-35.0The [facility] HospitalComment on above:Order Comment: No: Do not add to previous drawPerformed By: #### 03805 #### [facility] [address] [place] [address], [facility] HOSPITALMCV (RBC) [Entitic vol]87.0 hMNquekr26.0-98.0The [facility] HospitalComment on above:Order Comment: No: Do not add to previous drawPerformed By: #### 78597 #### [facility] [address] [place] [address], USANucleated RBC/100 WBC (Bld) [Ratio]0 %Normal0-0The [facility] HospitalComment on above:Order Comment: No: Do not add to previous drawPerformed By: #### 40478 #### [facility] [address] [place] [address], USAPLAT [id number] 10*3/dNOgnmce276-927Dqg [facility] HospitalComment on above:Order Comment: No: Do not add to previous draw Performed By: #### 50036 #### [facility] [address] [place] [address], USARBC (Bld) [#/Vol]4.76 10*6/uLNormal3.80-5.00The [facility] HospitalComment on above:Order Comment: No: Do not add to previous drawPerformed By: #### [id number] #### [facility] [address] [place] [address], USAWBC (Bld) [#/Vol]10.48 10*3/uLNormal4.00-10.60The [facility] HospitalComment on above:Order Comment: No: Do not add to previous drawPerformed By: #### [id number] #### [facility] [address] [place] [address], USAHistory and Physicalon [id number] and PhysicalMR#: [id number] [facility] Pt. Name: Sherly Humphreys Admitted: 08/23/2018 Date of : 1970 Attending Physician: Nini Valente MD Room #: 3AB [id number] Discharge Date: HISTORY AND PHYSICAL CHIEF COMPLAINT: [...] she went to the emergency department in [facility]. Initial evaluation included troponin and EKG, which were negative. The patient was started on nitroglycerin patch. She experienced some relief after starting the nitroglycerin patch. Her pain went down from 8 to 6/10. Given her significant cardiac history, the patient was transferred to [facility] for further evaluation. The patient [...] with no ST-T wave changes. Troponin from [facility] was 0.01. Pending troponin in our [...] Amanda/Nini Valente MD Date Trans: 08/23/2018 06:27 Yessy DN_JN:[id number] Medical Specialty Hospital [facility]hillPO GLUCOSE LAB on 96-14-0454Vqexxxh [Mass/Vol]101 mg/yWYbif75-799Eoo [facility] HospitalComment on above:Performed By: #### [id number] #### [facility] [address] [place] [address], USAGlucose [Mass/Vol]96 mg/qOQtpeze19-597Rwo [facility] HospitalComment on above:Performed By: #### [id number] #### [facility] [address] [place] [address], USAGlucose [Mass/Vol]134 mg/zDJolq31-435Spa [facility] HospitalComment on above:Performed By: #### [id number] #### [facility] [address] [place] [address], USAGlucose [Mass/Vol]164 mg/sMAdep22-614Dba [facility] HospitalComment on above:Performed By: #### [id number] #### [facility] [address] [place] [address], USAPROTHROMBIN TIMEon 95-88-3280MIY Coag (PPP) [Relative time] 1.06 {INR}Normal0.91-1.16The [facility] HospitalComment on above:Order Comment: No: Do not add to previous drawResult Comment: ACCCP RECOMMENDED INR FOR WARFARIN THERAPY ------- CONDITION INR PROPHYLAXIS OF VENOUS THROMBOSIS 2-3 (HIGH-RISK SURGERY) TREATMENT OF VENOUS THROMBOSIS 2-3 TREATMENT OF PULMONARY EMBOLISM 2-3 PREVENTION OF SYSTEMIC EMBOLISM: 2-3 ACUTE MYOCARDIAL INFARCTION TISSUE HEART VALVES VALVULAR HEART DISEASE ATRIAL FIBRILLATION RECURRENT SYSTEMIC EMBOLISM MECHANICAL HEART VALVE 2.5-3.5 FROM: ORAL ANTICOAGULANTS. MECHANISM OF ACTION, CLINICAL EFFECTIVENESS, AND OPTIMAL THERAPEUTIC RANGE. CHEST 1995;108:231S-246S.Performed By: #### [id number], 82905 #### [facility] [address] [place] [address], USAPT Coag (PPP) [Time]13.8 nQwtzoz90.3-14.8The [facility] Memorial HospitalComment on above:Order Comment: No: Do not add to previous drawResult Comment: ALL RESULTS MUST BE INTERPRETED WITH RESPECT TO BLOOD DRAWING ARTIFACT OR DILUTION ERROR OF ANTICOAGULANT AT THE TIME OF SAMPLING.Performed By: #### [id number], [id number] #### [facility] [address] [place] [address], USASERUM TESTon 43-51-1694ETPAICCPO TESTNegative NormalThe Wilson Memorial HospitalComment on above:Order Comment: Yes: Add to Previous draw if ablePerformed By: #### [id number] #### [facility] [address] [place] [address], USATROPONIN-Ion 45-35-9638Qdtxdsad I.cardiac [Mass/Vol]0.01 ng/mLNormal0.00-0.04The [facility] HospitalComment on above: Order Comment: No: Do not add to previous drawResult Comment: REFERENCE RANGES: 0.00 - 0.04 ng/ml NORMAL 0.05 - 0.50 ng/ml INDETERMINATE > 0.50 ng/ml CONSISTENT WITH AN M.I.Performed By: #### [id number] #### [facility] [address] [place] [address], USAUFH HEPARIN ASSAYon 10-72-8761YFNOEZNZCWTPBI HEPARIN0.42 IU/mLNormal0.30-0.70[facility] CenterComment on above: Order Comment: per hiren Quick Comment: Rivaroxaban and Apixaban will interfere with the anti Xa assay used to monitor UFH and LMWH.Performed By: #### [id number] #### [facility] [address] [place] [address], USAUNFRACTIONATED HEPARIN0.29 IU/mLLow0.30-0.70The [facility] Memorial HospitalComment on above:Result Comment: Rivaroxaban and Apixaban will interfere with the anti Xa assay used to monitor UFH and LMWH.Performed By: #### [id number] #### [facility] [address] [place] [address], USAUS GALLBLADDERon 99-00-0045BT GALLBLADDERUnOhioHealth [facility]field Hospital Department of Radiology [address] [place] [id number] Patient Name: SHERLY HUMPHREYS : 1970 Sex: F Age: Race: White Pt. Location: [id number] Patient Status: I Ordered Date: 08/23/2018 11:30:00 [...] gallbladder. Electronically signed by:Nathan Mauricio. Transcribed by: [id number], User Resident: Electronically Signed by: NATHAN MAURICIO @ 08/23/2018 03:33 [facility] HospitalComment on above:Order Comment: No: Do not add to previous draw Vital Signs Date TimeVital SignValuePerforming MqkycxlxfCjzjcogy87-22-3751 12:06-0400 Diastolic blood mm[Hg]Joshua Petersen DMD Work Phone: 1(804)648-[address] [place], [place] 4651709-16-2025 12:06-0400Heart rate64 /minKunal Vivekoliverio DMD Work Phone: [phone]09-16-2025 12:06-0400Systolic blood dmzolyyb777 mm[Hg]Joshua Petersen DMD Work Phone: [facility]09-02-2025 08:50-0400Body jeuwcklovqj16.3 [degF]Janene Louann Work Phone: [facility]09-02-2025 08:50-0400 Body .77 kgLisa Reddhholz Work Phone: [facility]09-02-2025 08:50-0400 Diastolic blood mm[Hg]Janene Reddhholz Work Phone: [facility]09-02-2025 08:50-0400 Heart rate56 /minJanene oJnesholz Work Phone: [facility]09-02-2025 08:50-0400 Respiratory rate20 /minJanene Jonesholz Work Phone: [facility]09-02-2025 08:50-0400 Systolic blood isgnhufm305 mm[Hg]Janene Karenholz Work Phone: [facility]08-19-2025 09:25-0400 Body syfipo493.56 cmKjose Petersen DMD Work Phone: 1(304)[address] [place], [place] 2991108-19-2025 09:25-0400Body mass index (BMI) [Ratio]39.48 kg/z8FwwuxJoshua Petersen DMD Work Phone: 1(155)[address] [place], [place] 2991108-19-2025 09:25-0400Body surface area Derived from formula2.17 w9PjyebJoshua Petersen DMD Work Phone: 1(764)[address] [place], [place] 2991108-19-2025 09:25-0400Body vykmtcseawr45.7 [degF]Joshua Petersen DMD Work Phone: 1(422)[address] [place], [place] 2991108-19-2025 09:25-0400Body urhfba591.33 kgJoshua Petersen DMD Work Phone: 1(294)[address] [place], [place] 2991108-19-2025 09:25-0400Diastolic blood lqxrsyge91 mm[Hg]Joshua Petersen DMD Work Phone: 1(110)[address] [place], [place] 2991108-19-2025 09:25-0400Heart rate53 /Tea Petersen DMD Work Phone: 1(081)[address] [place], [place] 2991108-19-2025 09:25-0400Systolic blood wdkrcnyv801 mm[Hg]Joshua Petersen DMD Work Phone: 1(796)[address] [place], [place] 2991108-13-2025 09:39-0400Body ahajoa312.56 cmLisa Aichholz Work Phone: [facility]08-13-2025 09:39-0400 Body mass index (BMI) [Ratio]39.8 kg/m2Lisa Aichholz Work Phone: 1(776)674-[facility]08-13-2025 09:39-0400 Body jbsuzv586.23 kgLisa Aichholz Work Phone: [facility]08-13-2025 09:39-0400 Diastolic blood srdielwq50 mm[Hg]Janene Aichholz Work Phone: 1(932)625-[address] [place], [place] 7923908-13-2025 09:39-0400 Heart rate61 /minLisa Aichholz Work Phone: 1(604)119-[address] [place], [place] 7923908-13-2025 09:39-0400 Respiratory rate16 /minLisa Aichholz Work Phone: 1(968)852-[address] [place], [place] 7923908-13-2025 09:39-0400 SaO2% (BldA) [Mass fraction]98 %Janene Aichholz Work Phone: 1(057)162-[address] [place], [place] 7923908-13-2025 09:39-0400 Systolic blood ybgmmela436 mm[Hg]Janene Aichholz Work Phone: [facility]07-21-2025 09:50-0400 Body jcbojx735.2 cmAllison Petznick DO Work Phone: noMer[facility] HospitalMfjymhovkt16-67-8081 09:50-0400Body mass index (BMI) [Ratio]36.65 kg/y9Csxlhil Petznick DO Work Phone: noMer[facility] HospitalTsnsfunrro65-68-0814 09:50-0400Body temperature 98.01 [degF]Marya Petznick DO Work Phone: noMer[facility] HospitalDzwnpzodol87-25-1990 09:50-0400Body aiyjvo137.14 kgAllison Petznick DO Work Phone: noMer[facility] HospitalMktdaeuihr81-92-0918 09:50-0400Diastolic blood defspaix39 mm[Hg]Marya Petznick DO Work Phone: noMer[facility] HospitalIddwvjnson44-13-9452 09:50-0400Heart rate56 /min Marya Petznick DO Work Phone: noMer[facility] HospitalZurnspgxes70-93-3564 09:50-3993AjF7% (BldA) [Mass fraction]96 %Marya Petznick DO Work Phone: noMer[facility] HospitalTsirmjitve88-85-5954 09:50-0400Systolic blood qodzdyjk536 mm[Hg]Marya Petznick DO Work Phone: noMer[facility] HospitalVqrwaqmelj45-89-0176 09:40-0400Body mass index (BMI) [Ratio]37.59 kg/m2Janene Lew [employer] Work Phone: [facility] NorthNbwqpwsngy63-51-1079 09:40-0400Body temperature 98.49 [degF]Janene Lew [employer] Work Phone: [facility] NorthGhbikcmytv42-11-9796 09:40-0400Body tsropj736.86 kgLi Louann [employer] Work Phone: [facility] NorthIapfdofxli52-77-6816 09:40-0400Diastolic blood breoldrr10 mm[Hg]Janene Louann [employer] Work Phone: [facility] NorthJfmvqtxhgi53-78-8677 09:40-0400Heart rate67 /min Janene Louann [employer] Work Phone: [facility] NorthXkjsqxpqit58-60-4964 09:40-0400Respiratory rate22 /minLisa Louann [employer] Work Phone: [facility] NorthJcpfhavaao38-26-4426 09:40-0417XjZ7% (BldA) [Mass fraction]97 %Janene Lew [employer] Work Phone: noMer[facility] HospitalHziimfaxfg71-34-4051 09:40-0400Systolic blood cbdlwlhy978 mm[Hg]Janene Lew [employer] Work Phone: [facility] NorthImckhvunzu75-87-2027 09:07-0500Body apqxuv771.2 cmAllronny Petznick DO Work Phone: noMer[facility] HospitalZgbetuxqbf62-04-7013 09:07-0500Body mass index (BMI) [Ratio]38.37 kg/v5Qwpmkde Petznick DO Work Phone: noMer[facility] HospitalTlcretefwv47-87-5489 09:07-0500Body temperature 98.2 [degF]Marya Petznick DO Work Phone: noMer[facility] HospitalXkgrznfjpl38-69-9562 09:07-0500Body cqihqx500.13 kgAllronny Petznick DO Work Phone: noMer[facility] HospitalPqvzvrnyyi78-44-6440 09:07-0500Diastolic blood mm[Hg]Marya Petznick DO Work Phone: noMer[facility] HospitalNjliulkeci62-26-9487 09:07-0500Heart rate61 /min Marya Petznick DO Work Phone: noMer[facility] HospitalYjndrsdrcu51-46-3190 09:07-7430VpE0% (BldA) [Mass fraction]97 %Marya Petznick DO Work Phone: noMer[facility] HospitalDbtkmmmbaj72-17-8705 09:07-0500Systolic blood sekfhknw995 mm[Hg]Marya Petznick DO Work Phone: noMer[facility] HospitalPoacrotprc39-88-7110 09:28-0500Body uleouq754.2 cmLisa Louann [employer] Work Phone: [facility] NorthWbvczvbgst68-78-7814 09:28-0500Body mass index (BMI) [Ratio]40.69 kg/m2Lisa Louann [employer] Work Phone: noMer[facility] HospitalZvubrdfcqz06-98-3418 09:28-0500Body temperature 98.49 [degF]Janene Louann [employer] Work Phone: noMer[facility] HospitalPbsfezgiqh08-66-8435 09:28-0500Body .84 kgLisa Louann [employer] Work Phone: [facility] NorthQbcavukexl19-65-6125 09:28-0500Diastolic blood jcvuzkch27 mm[Hg]Janene Lew [employer] Work Phone: [facility] NorthHgyajoyngy23-22-8952 09:28-0500Heart rate60 /min Janene Lew [employer] Work Phone: noMer[facility] HospitalDrzryqpwsk30-67-9949 09:28-0500Respiratory rate20 /minJanene Lew [employer] Work Phone: [facility] NorthIdnccwmynb92-13-5114 09:28-6618AzX3% (BldA) [Mass fraction]96 %Janene Lew [employer] Work Phone: noMer[facility] HospitalYfpcyufpvp13-27-1184 09:28-0500Systolic blood ivzmhwti223 mm[Hg]Janene Lew [employer] Work Phone: noMer[facility] HospitalLrgxtpfzvl67-61-5318 09:23-0500Body ggluvu405.6 cmAllison Petznick DO Work Phone: noMer[facility] HospitalWwklasbaxw28-28-3547 09:23-0500Body mass index (BMI) [Ratio]46.86 kg/t2Lrcbuxm Petznick DO Work Phone: [place] [address]Hyefalbhlb08-41-0412 09:23-0500Body temperature 96.8 [degF]Marya Petznick DO Work Phone: [place] [address]Rewxkwytga81-03-8687 09:23-0500Body .83 kgAllison Petznick DO Work Phone: [place] [address]Zrbdnnqhrg56-03-6789 09:23-0500Diastolic blood vwvdymgt45 mm[Hg]Marya Petznick DO Work Phone: [place] [address]Wdvyrwzdve00-60-8458 09:23-0500Heart rate56 /min Marya Petznick DO Work Phone: [place] [address]Zgafrfrkwt26-34-1407 09:23-3657LfZ1% (BldA) [Mass fraction]97 %Marya Petznick DO Work Phone: [place] [address]Pejxqwxtdm96-69-3434 09:23-0500Systolic blood hdlbxuer251 mm[Hg]Marya Castorena DO Work Phone: noMer[facility] HospitalHjcwqnusvd28-16-1499 08:35-0400Body uqiasq406.6 Heaven Jonesjeremiah [employer] Work Phone: [facility] NorthVbkfkevqeo89-47-2308 08:35-0400Body mass index (BMI) [Ratio]49.06 kg/m2Li Emiz [employer] Work Phone: [facility] NorthWvlngzgtvz44-03-5643 08:35-0400Body temperature 98.71 [degF]Janene Reddlulz [employer] Work Phone: [facility] NorthCslhnvaklf18-18-6724 08:35-0400Body .64 kgLi Karenholz [employer] Work Phone: [facility] NorthQfumwyrakl00-85-0193 08:35-0400Diastolic blood zccfgnym31 mm[Hg]Janene Emiz [employer] Work Phone: [facility] NorthHltuuctiol96-84-1815 08:35-0400Heart rate66 /min Janene Reddtimmyholz [employer] Work Phone: [facility] NorthWsyfbudsmb60-29-0689 08:35-0400Respiratory rate20 /minLisa Reddtimmyholz [employer] Work Phone: [facility] NorthDovnninqmm04-89-6099 08:35-7931DvR4% (BldA) [Mass fraction]98 %Janene Karenholz [employer] Work Phone: [facility] NorthGgszqdzapi68-75-5407 08:35-0400Systolic blood mm[Hg]Janene Reddhholz [employer] Work Phone: [facility] NorthWamzyqtoew78-12-8319 11:00-0400Diastolic blood xsoqtnyl62 mm[Hg]Janene Karenholz Work Phone: [facility]07-18-2024 11:00-0400 Heart rate52 /minLisa Emiz Work Phone: 1(419)[address]07-18-2024 11:00-0400 Respiratory rate16 /minLisa Aichholz Work Phone: 1(181)[address]07-18-2024 11:00-0400 SaO2% (BldA) [Mass fraction]98 %Janene Aichholz Work Phone: 1(500)[address]07-18-2024 11:00-0400 Systolic blood tblewhwj681 mm[Hg]Janene Aichholz Work Phone: 1(348)[address]07-18-2024 10:30-0400 Inhaled oxygen flow rate8 L/minLisa Aichholz Work Phone: 1(532)[address] [place], [place] 9804007-18-2024 07:28-0400 Body kdjchi097.56 cmLisa Aichholz Work Phone: 1(581)[address] [place], [place] 9804007-18-2024 07:28-0400 Body mnmawxwlykr82.9 [degF]Janene Aichholz Work Phone: 1(806)[address]07-18-2024 07:28-0400 Body .72 kgLisa Aichholz Work Phone: 1(066)[address]07-02-2024 13:05-0400 Body .56 cmLisa Aichholz Work Phone: 1(737)[address]07-02-2024 13:05-0400 Body mass index (BMI) [Ratio]51.5 kg/m2Lisa Aichholz Work Phone: 1(505)[address]07-02-2024 13:05-0400 Body sqyjsifyayw14.3 [degF]Janene Aichholz Work Phone: 1(067)[address]07-02-2024 13:05-0400 Body glxtog632.3 kgLisa Aichholz Work Phone: 1(151)827-[address] [place], [place] 7923907-02-2024 13:05-0400 Diastolic blood kvejytnw42 mm[Hg]Janene Aichholz Work Phone: 1(258)081-[facility]07-02-2024 13:05-0400 Heart rate69 /minLisa Aichholz Work Phone: 1(472)988-[address] [place], [place] 7923907-02-2024 13:05-0400 Respiratory rate18 /minLisa Aichholz Work Phone: 1(573)550-[address] [place], [place] 7923907-02-2024 13:05-0400 SaO2% (BldA) [Mass fraction]99 %Janene Aichholz Work Phone: 1(334)948-[address] [place], [place] 7923907-02-2024 13:05-0400 Systolic blood mm[Hg]Janene Aichholz Work Phone: 1(127)[address]06-18-2024 08:00-0400 Body lcfsaqjvrdb17.9 [degF]Janene Aichholz Work Phone: 1(455)[address]06-18-2024 08:00-0400 Diastolic blood bttnvupr85 mm[Hg]Janene Aichholz Work Phone: 1(749)944-[address] [place], [place] 7923906-18-2024 08:00-0400 Heart rate58 /minLisa Aichholz Work Phone: 1(686)956-[address] [place], [place] 7923906-18-2024 08:00-0400 Respiratory rate16 /minLisa Aichholz Work Phone: 1(818)346-[address] [place], [place] 7923906-18-2024 08:00-0400 SaO2% (BldA) [Mass fraction]100 %Janene Aichholz Work Phone: 1(254)686-[address] [place], [place] 7923906-18-2024 08:00-0400 Systolic blood ubqnhbov551 mm[Hg]Janene Aichholz Work Phone: 1(605)070-[address] [place], [place] 7923906-18-2024 05:02-0400 Body xmiciq376.8 kgLisa Aichholz Work Phone: [facility]06-17-2024 05:34-0400 Body wpjwta752.56 cmLisa Aichholz Work Phone: 8(262)706-[address] [place], [place] 7923905-01-2024 10:02-0400 Body .56 cmLisa Aichholz Work Phone: 1(496)642-[address] [place], [place] 0564005-01-2024 10:02-0400 Body mass index (BMI) [Ratio]54.6 kg/m2Lisa Aichholz Work Phone: 1(357)438-[address] [place], [place] 7923905-01-2024 10:02-0400 Body hfbtsbnzoce43.9 [degF]Janene Aichholz Work Phone: 1(342)761-[address] [place], [place] 7923905-01-2024 10:02-0400 Body qlgrwe433.24 kgLisa Aichholz Work Phone: 7(813)748-[address] [place], [place] 7923905-01-2024 10:02-0400 Diastolic blood ulemmjxk54 mm[Hg]Janene Aichholz Work Phone: 3(439)152-[address] [place], [place] 7923905-01-2024 10:02-0400 Heart rate59 /minLisa Aichholz Work Phone: 2(290)767-[address] [place], [place] 7923905-01-2024 10:02-0400 Respiratory rate18 /minLisa Aichholz Work Phone: 2(432)981-[address] [place], [place] 7923905-01-2024 10:02-0400 SaO2% (BldA) [Mass fraction]98 %Janene Aichholz Work Phone: [facility]05-01-2024 10:02-0400 Systolic blood soncpkss134 mm[Hg]Janene Aichholz Work Phone: 1(776)886-[address] [place], [place] 7923905-01-2023 10:15-0400 Body .56 [facility] Other [facility] [employer] Other 05-01-2023 10:15-0400Body mass index (BMI) [Ratio] 51.63 kg/r8Bziemqfern Sams Other [employer] Other 05-01-2023 10:15-0400Body .44 kgShfern Sams Other [employer] Other 05-01-2023 10:15-0400Diastolic blood wqzfpwir00 mm[Hg] Ivan Sams Other [employer] Other 05-01-2023 10:15-6753ArR6% (BldA) [Mass fraction]99 % Ivan Sams Other [employer] Other 05-01-2023 10:15-0400Systolic blood oinybqcm983 mm[Hg] Ivan Latrell Other [employer] Other 03-20-2023 12:30-0400Body uqfjpk169.56 cmSherying Sams Other [employer] Other 03-20-2023 12:30-0400Body mass index (BMI) [Ratio] 51.39 kg/h6Mvasqx Zaky Other [employer] Other 03-20-2023 12:30-0400Body zueblt754.81 kgShfern Sams Other [employer] Other 03-20-2023 12:30-0400Diastolic blood mm[Hg] Ivan Sams Other [employer] Other 03-20-2023 12:30-1194LhM5% (BldA) [Mass fraction]99 % Ivan Sams Other [place] [employer] Other 03-20-2023 12:30-0400Systolic blood yoqykqfk830 mm[Hg] Ivan Sams Other [place] [employer] Other 03-11-2023 15:59-0500Body hxankz041.56 cmLisa Aichholz Work Phone: [facility]03-11-2023 15:59-0500 Body iwkinpixvfn26.2 [degF]Janene Aichholz Work Phone: [facility]03-11-2023 15:59-0500 Body eyakwr086.4 kgLisa Aichholz Work Phone: [facility]03-11-2023 15:59-0500 Diastolic blood excqxxpk90 mm[Hg]Janene Aichholz Work Phone: [facility]03-11-2023 15:59-0500 Heart rate94 /minLisa Aichholz Work Phone: [facility]03-11-2023 15:59-0500 Respiratory rate20 /minLisa Aichholz Work Phone: [facility]03-11-2023 15:59-0500 SaO2% (BldA) [Mass fraction]96 %Janene Aichholz Work Phone: [facility]03-11-2023 15:59-0500 Systolic blood atcfolbd027 mm[Hg]Janene Aichholz Work Phone: [facility]01-27-2023 12:00-0500 Body exxnjv069.56 cmDale Hamilton Other [facility] [employer] Other 01-27-2023 12:00-0500Body mass index (BMI) [Ratio] 51.94 kg/m2Dale Hamilton Other [employer] Other 01-27-2023 12:00-0500Body apgkgn057.26 kgDale Hamilton Other [employer] Other 01-10-2023 12:20-0500Body .56 cmAziz Bakmichaels Other [employer] Other 01-10-2023 12:20-0500Body mass index (BMI) [Ratio] 51.94 kg/m2Aziz Bakhous Other [employer] Other 01-10-2023 12:20-0500Body wepzblqrzko72.5 [degF]Aziz Bakhous Other [employer] Other 01-10-2023 12:20-0500Body cfeabl353.26 kgAziz Bakhous Other [employer] Other 01-10-2023 12:20-0500Diastolic blood kbvejdpg73 mm[Hg] Aziz Bakhous Other [employer] Other 01-10-2023 12:20-0500Respiratory rate18 /minAziz Bakhous Other [employer] Other 01-10-2023 12:20-7912DyR2% (BldA) [Mass fraction]97 % Aziz Bakhous Other [employer] Other 01-10-2023 12:20-0500Systolic blood hllhlpax876 mm[Hg] Aziz Bakhous Other [employer] Other 10-12-2022 16:15-0400Body dojyzy400.56 cmPeggy Bolivar Other [employer] Other 10-12-2022 16:15-0400Body mass index (BMI) [Ratio] 52.78 kg/f7Aqlnv Bolivar Other [employer] Other 10-12-2022 16:15-0400Body fxhwkxvdjyr42.1 [degF]Emma Bolivar Other [employer] Other 10-12-2022 16:15-0400Body tzaxfa515.48 kgPeggy Bolivar Other [employer] Other 10-12-2022 16:15-0400Diastolic blood hxraliyl02 mm[Hg] Emma Bolivar Other [employer] Other 10-12-2022 16:15-3106UyK1% (BldA) [Mass fraction]98 % Emma Bolivar Other [employer] Other 10-12-2022 16:15-0400Systolic blood szhnyppr423 mm[Hg] Emma Bolivar Other [employer] Other 08-23-2022 12:20-0400Body disfqs450.56 cmDadavid Hamilton Other [employer] Other 08-23-2022 12:20-0400Body mass index (BMI) [Ratio] 46.34 kg/m2Christian Hamilton Other [employer] Other 08-23-2022 12:20-0400Body bnuonp129.47 kgDale Hamilton Other [employer] Other 07-28-2022 16:20-0400Body hhpmep895.56 cmDale Hamilton Other [employer] Other 07-28-2022 16:20-0400Body mass index (BMI) [Ratio] 46.34 kg/m2Dale Hamilton Other [employer] Other 47-56267436-61-5003 16:20-0400Body nxvayu768.47 kgDale Hamilton Other [employer] Other 06-16-2022 14:00-0400Body mkuydr230.56 cmDale Hamilton Other [employer] Other 06-16-2022 14:00-0400Body mass index (BMI) [Ratio]46 kg/m2Dale Hamilton Other [employer] Other 06-16-2022 14:00-0400Body .56 kgDale Hamilton Other [employer] Other 05-17-2022 15:40-0400Body zaynwk105.56 cmDale Hamilton Other [employer] Other 05-17-2022 15:40-0400Body mass index (BMI) [Ratio]46 kg/m2Dale Hamilton Other [employer] Other 05-17-2022 15:40-0400Body lavndm889.56 kgDale Hamilton Other [employer] Other Encounters Encounter DateEncounter TypeCare ProviderFacilityStart: 56-00-9155nedhokqdyajean AlonsoFacility:[facility]tart: 01-26-2025 End: 94-38-8971omscfjgptiIlldcyjSherwin Conway MDFacility:CUONG Fuentes Start: 12-30-2024 End: 31-31-0754Fanjlduhc identifierJoshua Petersen DMD Work Phone: Dental ClinicStart: 56-19-5281bftbuivbggAooug Kanani [facility]tart: 12-16-2024 End: 11-42-9251zlaanqbdbaVzps J Aichholz Work Phone: [facility] Work Phone: Start: 12-16-2024 End: 75-57-8444Esfscko encounter procedureJanene Lew [employer] Work Phone: Start: 36-89-3205fjfrfclvgwLYIOUniversity Hospitals Ely[facility] Medical Centertart: 12-12-2024 End: 60-22-0293gkjkdzqtnvNRUMOhioHealth Grant Medical Centertart: 12-06-2024 End: 59-10-0329Wtygfkizc Result EncounterGeneric External Data ProviderNOMS External Department UnsolicitedStart: 12-06-2024 End: 17-91-0327Ozbwjhfpr Result EncounterGeneric External Data ProviderNOMS External Department UnsolicitedStart: 12-06-2024 End: 92-71-2378AxtjhcNscb Aichholz [employer]ER Work Phone: [facility] FMComment on above:Restless leg syndrome Start: 12-02-2024 End: 61-29-7625aucdyiuj oral evaluation - established patientJoshua Petersen DMD Work Phone: [facility]: 12-02-2024 End: 49-16-5318Wbhpgqxnn Yang Petersen DMD Work Phone: Dental ClinicStart: 11-26-2024 End: 62-94-0073vpeoggcutyReff J Aichholz Work Phone: [facility] Work Phone: Start: 11-26-2024 End: 72-55-1522Ilzrpun encounter procedureHalle Mac MD-[facility] Work Phone: Start: 11-21-2024 End: 56-34-2514LzrqwsAbxm Aichholz [employer] Work Phone: [facility] CWM FMComment on above:Restless leg syndrome Start: 11-18-2024 End: 72-50-8868Mgjeqct encounter procedureHalle Mac MD-[facility] Work Phone: Start: 11-18-2024 End: 13-23-6194ydkggtkdzoPham J Aichholz Work Phone: [facility] Work Phone: Start: 11-17-2024 End: 68-65-5689Bnfpjxfwo Result EncounterGeneric External Data ProviderNOMS External Department UnsolicitedStart: 11-17-2024 End: 21-29-9148Omskjcefx Result EncounterGeneric External Data ProviderNOMS External Department UnsolicitedStart: 11-11-2024 End: 17-03-5448SjcuawAyjl Aichholz PAVER LAYER Work Phone: noms CWM FMComment on above:Muscle spasmStart: 75-96-0985Oxdercaare Judit Alonso MD- CredibleStart: 11-03-2024 End: 06-14-4065Hbtydd flowsTasha Castorena DO Work Phone: [facility] SWS FM 230Start: 11-03-2024 End: 76-97-6867Ebwjdq flowsheetMarya Castorena DO Work Phone: noMS SWS FM 230Start: 11-03-2024 End: 12-19-9126Qymbxn outpatient visit 25 minutesWichoronny Simonjessica DO Work Phone: [facility] SWS FM 230Comment on above:Type 2 diabetes mellitus with other circulatory complications [...] index (BMI) of36.0 to 36.9 in adult (CMS-HCC)Start: 11-03-2024 End: 65-63-5959wnkrmugxitBJDWKIO Lupe STALEYCARMENZANot AvailableStart: 10-16-2024 End: 54-49-7705useyyvckpaBYQACherrington Hospitaltart: 10-16-2024 End: 19-92-3424Nkxsbnecm for other preprocedural examinationEHParkwood Hospitaltart: 10-07-2024 End: 67-01-8123Eagrtppbk Result EncounterGeneric External Data ProviderNOMS External Department UnsolicitedStart: 10-07-2024 End: 61-53-5672Kwirmficg Result EncounterGeneric External Data ProviderNOMS External Department UnsolicitedStart: 09-09-2024 End: 80-50-8142GkguodPshi Aichholz PAVER LAYER Work Phone: NOMS CWM FMComment on above:Restless leg syndrome Start: 09-03-2024 End: 18-37-0411Lqwktdi encounter statusJanene Lew PAVER LAYER Work Phone: NOJP HealthcareStart: 09-03-2024 End: 64-89-3391Lpfvhzqa preventive med est patient 40-64yrsJanene Lew PAVER LAYER Work Phone: NODJ CWM FMComment on above:Encounter for wellness examination in adult (Primary Dx); Encounter for screening mammogram for malignant neoplasm of breast; Primary hypertension (CMS/HCC); Chronic diastolic heart failure (CMS/HCC); Stage 3b chronic kidney disease (HCC) ([facility]); Class 2 severe obesity due to excess calories with serious comorbidity and body mass index (BMI) of38.0 to 38.9 in adult ([facility]/HCC); Type 2 diabetes mellitus with stage 3a chronic kidney disease, without long-term current use of insulin (HCC) ([facility]); Mixed hyperlipidemia ([facility]/HCC)Start: 09-03-2024 End: 56-21-3118andklsqxytEMHP AICHHOLZNot AvailableStart: 09-01-2024 End: 74-60-8766ScyqimPebw Aichholz PAVER LAYER Work Phone: NOMS CWM FMComment on above:Primary hypertension ([facility])Muscle spasmStart: 08-28-2024 End: 97-78-2471Xlyerinbg Result EncounterLisa Aichholz PAVER LAYER Work Phone: NOGO External Department UnsolicitedStart: 08-28-2024 End: 60-01-7741Xnscuehgj Result EncounterLisa Aichholz PAVER LAYER Work Phone: NOPQ External Department UnsolicitedStart: 08-12-2024 End: 29-18-3834JtcyyvNmst Aichholz PAVER LAYER Work Phone: N[facility] CWM FMStart: 07-25-2024 End: 85-33-6221XpwqcxEqak Aichholz PAVER LAYER Work Phone: NOM[facility] CWM FMComment on above:Restless leg syndrome Start: 07-15-2024 End: 12-71-7475Gfmnwf OnlyLisa Aichholz PAVER LAYER Work Phone: NOM[facility] CWM FMComment on above:Acute foot pain, left (Primary Dx); Acute left ankle painStart: 06-16-2024 End: 38-94-4241Oizoee flowsTasha Castorena DO Work Phone: [facility] SWS FM 230Start: 06-16-2024 End: 97-27-1345Gtgkal flowsheetMarya Castorena DO Work Phone: [facility] SWS FM 230Start: 06-16-2024 End: 33-26-6716Gomoyi outpatient visit 25 minutesWichoronny Castorena DO Work Phone: [facility] SWS FM 230Comment on above:Class 2 severe obesity due to excess calories with serious comorbidity and body mass index (BMI) of 38.0 to 38.9 in adult (CMS/HCC) (Primary Dx); Type 2 diabetes mellitus with other circulatory complications (CMS/HCC); Type 2 diabetes mellitus with stage 3a chronic kidney disease, without long-term current use of insulin (HCC) (CMS/HCC)Start: 06-16-2024 End: 80-83-7450vgbyjrokbyVILTZNQ Lupe STALEYCARMENZANot AvailableStart: 05-27-2024 End: 50-61-8422MhntowZpku Aichholrufus PAVER LAYER Work Phone: NOM[facility] CWM FMComment on above:Muscle spasmStart: 03-20-2024 End: 78-59-1659DidiwxUufq Aichholz PAVER LAYER Work Phone: NOM[facility] CWM FMComment on above:Restless leg syndrome Start: 03-11-2024 End: 08-69-1088dfjlgorrxxPeae BakVal[facility]ge [facility] Start: 03-06-2024 End: 33-14-8523Iiyrle flowsheetLisa Aichholz PAVER LAYER Work Phone: [facility] CWM FMStart: 03-06-2024 End: 15-20-6500Idoxae flowsheetLisa Aichholz PAVER LAYER Work Phone: [facility] CWM FMStart: 03-06-2024 End: 33-67-0022Izzilf outpatient visit 25 minutesLisa Louann PAVER LAYER Work Phone: N[facility] CWM FMComment on above:Primary hypertension (CMS/HCC) (Primary Dx); Spinal stenosis of lumbar region at multiple levels; Restless leg syndrome; URIEL (obstructive sleep apnea); Coronary arteriosclerosis (CMS/HCC); Stage 3b chronic kidney disease (HCC) (CMS/HCC); Swelling of both lower extremities; Lower extremity edema; Type 2 diabetes mellitus with stage 3a chronic kidney disease, without long-term current use of insulin (HCC) ([facility]); Class 3 severe obesity due to excess calories with serious comorbidity and body mass index (BMI) of45.0 to 49.9 in adult ([facility]); Bipolar affective disorder, remission status unspecified ([facility]); Generalized anxiety disorder ([facility]); Vitamin D deficiency; Vitamin B12 deficiency; H/O bariatric surgery; Acute non-recurrent pansinusitisStart: 03-06-2024 End: 12-61-7207czyholgeuxBXKF AICHHOLZNot AvailableStart: 02-22-2024 End: 33-34-4437XfaqfkEhko Aichholz PAVER LAYER Work Phone: NOM[facility] CWM FMComment on above:Muscle spasmStart: 02-19-2024 End: 12-87-9794Htjjvj outpatient visit 25 minutesMarya Castorena DO Work Phone: [facility] SWS FM 230Comment on above:Type 2 diabetes mellitus with other circulatory complications ([facility]) (Primary Dx); Type 2 diabetes mellitus with stage 4 chronic kidney disease, without long-term current use of insulin ([facility]); Type 2 diabetes mellitus with stage 3a chronic kidney disease, without long-term current use of insulin ([facility]) ([facility]); Class 3 severe obesity due to excess calories with serious comorbidity and body mass index (BMI) of45.0 to 49.9 in adult ([facility])Start: 02-19-2024 End: 00-96-1285rpcrvzzbktFLRXZPLConsuelo Caro AvailableStart: 01-14-2024 End: 49-95-2332DkvvwhEzak Aichholz PAVER LAYER Work Phone: NOM[facility] CWM FMComment on above:Primary hypertension ([facility])Start: 12-19-2023 End: 51-44-7235CxvjnpKhfv Aichholz PAVER LAYER Work Phone: NOM[facility] CWM FMComment on above:Type 2 diabetes mellitus with stage 4 chronic kidney disease, without long-term current use of insulin ([facility]) (Primary Dx)Start: 12-18-2023 End: 08-76-3351Xwwbyegta Result EncounterLisa Aichholz PAVER LAYER Work Phone: noms External Department UnsolicitedStart: 12-18-2023 End: 41-93-3977Ucrzddvmx Result EncounterLisa Aichholz PAVER LAYER Work Phone: noms External Department UnsolicitedStart: 12-18-2023 End: 66-98-6409TgujlpXpem Aichholz PAVER LAYER Work Phone: NOM[facility] CWM FMComment on above:Restless leg syndrome Start: 12-18-2023 End: 12-61-0298SwvlrjQxot Aichholz PAVER LAYER Work Phone: NOM[facility] CWM FMComment on above:Antibiotic-induced yeast infection (Primary Dx)Start: 12-05-2023 End: 57-97-3622Zumnlc flowsheetLisa Aichholz PAVER LAYER Work Phone: [facility] CWM FMStart: 12-05-2023 End: 69-19-2771Nrrexj flowsheetLisa Aichholz PAVER LAYER Work Phone: [facility] CWM FMStart: 12-05-2023 End: 96-27-7392PfejpvQfko Aichholz PAVER LAYER Work Phone: [facility] CWM FMComment on above:Muscle spasmStart: 12-05-2023 End: 51-71-8260Izpagi outpatient visit 25 minutesLisa Aichholz PAVER LAYER Work Phone: N[facility] CWM FMComment on above:Left lower quadrant abdominal pain (Primary Dx); Morbid (severe) obesity due to excess calories (CMS/HCC); Body mass index (BMI) 45.0-49.9, adult (CMS/HCC); Restless leg syndrome; Stage 3b chronic kidney disease (HCC) (CMS/HCC)Start: 12-05-2023 End: 20-51-7161ejewznvdhcEXRJ AICHHOLZNot AvailableStart: 11-19-2023 End: 83-65-5720srqbpexafjIHDGHPS M PETZNICKNot AvailableStart: 11-12-2023 End: 85-02-3631edlbzckjcnYRCMMQ VARGAS MAIAot AvailableStart: 11-01-2023 End: 78-55-7497Clfdbmzzr to same day surgery centerLisa Aichholz Work Phone: [facility] Main CampusStart: 11-01-2023 End: 74-36-3450xaledmehjtBtnt J Aichholz Work Phone: [facility] Work Phone: Start: 23-04-5838Hmoolndxxb RecurringLisa Aichholz Work Phone: [phone] [place] [address] CredibleStart: 10-16-2023 End: 53-26-0856pxmmjrtzdqZtfj J Aichholz Work Phone: [facility] Work Phone: Start: 10-16-2023 End: 40-71-4819Swlrghb encounter procedureLisa Aichholz Work Phone: [facility] Work Phone: Start: 49-55-8607Tjbxqyztei RecurringLisa Aichholz Work Phone: [facility] CredibleStart: 10-11-2023 End: 14-79-7873cprlgceuytWisu J Aichholz Work Phone: [facility] Work Phone: Start: 10-11-2023 End: 17-74-8098Nhbmayz encounter procedureLisa Aichholz Work Phone: [facility] [place] Work Phone: Start: 93-16-5342Gee-patient / Non-visitLisa Aichholz Work Phone: [facility] Work Phone: Start: 10-01-2023 End: 77-01-7672Bbcjjzbaep and management of inpatientLisa Aichholz Work Phone: [facility] Work Phone: Start: 60-39-5978Ixevlmwzei RecurringLisa Aichholz Work Phone: [facility]- CredibleStart: 08-15-2023 End: 95-19-9022Enpvomx encounter procedureLisa Aichholz Work Phone: [facility] Work Phone: Start: 08-10-2023 End: 81-20-2494yggopbrzuyRary J Aichholz Work Phone: [facility] Work Phone: Start: 08-10-2023 End: 95-95-2345Mbgxygi encounter procedureLisa Aichholz Work Phone: [facility] [place] Work Phone: Start: 06-19-2023 End: 89-74-3973Grjxfyq encounter procedureLisa Aichholz Work Phone: [facility] [place] Work Phone: Start: 05-25-2023 End: 32-52-8958glcdokcsonZAJI A NADERERFacility:[facility] HospitalStart: 05-17-2023 End: 17-86-5816lvhfrpebtjVptr J Aichholz Work Phone: [facility] Work Phone: Start: 05-17-2023 End: 90-83-1739Qepdxla encounter procedureLisa Aichholz Work Phone: [facility] [place] Work Phone: Start: 05-39-3572Qynxxmnfgh RecurringLisa Louann Work Phone: [facility]- CredibleStart: 11-29-2022 End: 33-84-1661olrkhkksmwXcml Bakmichaels Other noChina-[employer] Other Start: 06-49-4025Khkqbmpzz encounterAziz BakhousFPG NephrologyStart: 09-18-2022 End: 42-52-0794frosyljqhpDinedd Latrell Other [facility] mySkin Other Start: 09-35-4533Acbweyzca encounterSherif ZakyFPG Pain ManagementStart: 09-07-2022 End: 87-91-0579hntigmtfkuPFU JANENE AICSAULOFacility:O4Grtsq: 08-14-2022 End: 39-08-9260gkbjbjpztkXahnmz Latrell Other Ingageappsoutheast [facility] mySkin Other Start: 24-52-0515Vipoyi outpatient visit 25 minutes Ivan ZakyFPG Pain ManagementStart: 07-03-2022 End: 09-09-0482evedjtbshbImlvxy Latrell Other uBiome Other Start: 31-46-6230Gchfpo consultation new/estab patient 60 minSherif ZakyFPG Pain ManagementStart: 06-24-2022 End: 12-23-1252Lugtrzwtg department patient visitLisa Karenangierufus Work Phone: [facility] Work Phone: Start: 06-08-2022 End: 14-94-0705zrqwtuutsmLSL JANENE AICHHOLZFacility:J6Bcycp: 05-29-2022 End: 07-59-3449vypamvqeixCBB JANENE AICHHOLZFacility:C3Rzzws: 38-94-2539kbfnhcdkuv MEDICAL TERRITORY MANAGER JANENE LOUANNFacility:V5Okoqz: 05-12-2022 End: 41-66-7837lblcjocplyCrpk Hamilton Other Nort mySkin Other start: 02-33-8280Mefgaz outpatient visit 15 minutes Christian [facility] NeurosurgeryStart: 04-25-2022 End: 25-54-4607rbonetjujaVwxj Bakhous Other Nort mySkin Other Start: 88-24-5638Wlgdic outpatient new 30 minutesAzaurelia BubbaFLORENCE COMMUNITY [facility] Nephrology ClydeStart: 03-29-2022 End: 48-44-8126ivuituekxsVQG JANENE LOUANNFacility:J6Uvsxi: 03-23-2022 End: 13-18-1262jqlnergpciDOE JANENE LOUANNFacility:U3Pljrx: 02-19-2022 End: 67-85-8071zjqtfrwpdaFQZ JANENE LOUANNFacility:W8Trptp: 02-16-2022 End: 68-83-7083dsnnqqoemnFC MYRIAM PERRIN .Facility:W1Oozwl: 97-38-8186vtcuztebclLDA JANENE LOUANNFacility:D2Rnynw: 01-25-2022 End: 20-72-1888Kzcbncm encounter procedureJanene Lew Work Phone: [facility]-Sleep LabStart: 01-25-2022 End: 94-85-1933mayoqgwrtqUfyd Moses Lew Work Phone: [facility] Work Phone: Start: 28-51-3446Rynlos outpatient visit 25 minutes Emma [facility] SouthStart: 01-25-2022 End: 54-08-0476bggcwpoxzfPWL JANENE LOUANNFacility:X0Feril: 01-23-2022 End: 99-37-2909whmolqfylrDWK JANENE AICHANGIEZFacility:S4Fituw: 01-12-2022 End: 31-73-7201ginspevnxsZQN JANENE AICHHOLZFacility:B4Wivxa: 12-21-2021 End: 43-13-5869ocbnofaesjOKF JANENE AICHHOLZFacility:Y7Zxzgb: 12-06-2021 End: 88-27-2006aeqvdcpfwbMweq Alfonso Other [employer] Other start: 57-67-6858Lavljk outpatient visit 15 minutes Christian [facility] NeurosurgeryStart: 11-30-2021 End: 67-46-6325tyxvkbxmbaJSC JANENE AICSAULOFacility:E9Kziju: 11-28-2021 End: 38-77-0625aqcajlbulwTZW JANENE AICLULZFacility:V6Dvzxh: 11-14-2021 End: 23-17-6445spuwgvjhrhZjpt J Aichholrufus Work Phone: [facility] Work Phone: Start: 11-14-2021 End: 58-55-9997Idacaygzki RecurringLisa Reddholrufus Work Phone: [facility]-Physical Therapy CastaliaStart: 11-10-2021 End: 09-27-9918hpxkbunzmvMeli Braun Other [facility] mySkin Other start: 82-23-7579Qolidz follow up visit related to original pxDadavid [facility] NeurosurgeryStart: 10-28-2021 End: 94-19-3663eziwvzelxfDBQ JANENE AICSAULOFacility:E2Vizjw: 10-02-2021 End: 64-12-1556fbwadjzjukPSQ JANENE AICTimmyHOLZFacility:O1Rxmyk: 09-29-2021 End: 56-62-3482ghifsamydkQabf Braun Other [employer] Other start: 49-17-5745Gyhuwl follow up visit related to original pxChristian [facility] CenterNadia [facility] NeurosurgeryStart: 08-30-2021 End: 39-21-4599ofsblzxyvsTdpc Braun Other [employer] Other start: 01-99-9220Uyavny follow up visit related to original pxDale [facility] NeurosurgeryStart: 59-80-3048Whjuobypj to same day [facility] CtrStart: 08-12-2021 End: 15-92-3761tbxkjoqtagYfpp Braun Other AnybodyOutThere mySkin Other start: 08-23-2018 End: 63-37-4764Fhyptwrnuh and management of inpatientSana Merino Facility:[facility] Procedures DateProcedureProcedure DetailPerforming ClinicianStart: 12-30-2024 End: 11-33-0016edkm buildup, including any pins when requiredJoshua Petersen DMD Work Phone: Start: 12-30-2024 End: 12-59-4852Zmivzbtpsbrmp of current medicationsJoshua Petersen DMD Work Phone: Start: 12-30-2024 End: 97-77-0178cxyycfrpie therapy, anterior tooth (excluding final scientologist) Joshua Petersen DMD Work Phone: Start: 12-30-2024 End: 20-47-0918lmkl hygiene instructionsKjose Petersen DMD Work Phone: Start: 76-69-1109OYB CBC WITH AUTO DIFFGeneric External Data ProviderStart: 12-02-2024 End: 73-09-3437WxpuqsYnhyi Kanani DMD Work Phone: Start: 12-02-2024 End: 62-20-9598diclrgsdt - four radiographic imagesJoshua Petersen DMD Work Phone: Start: 12-02-2024 End: 22-42-7895Nduodq of stomachJoshua Petersen DMD Work Phone: Start: 12-02-2024 End: 52-24-1423Ufjwrznslojoj of current medicationsJoshua Petersen DMD Work Phone: Start: 12-02-2024 End: 48-28-3850nvgjxmetjp, erupted tooth or exposed root (elevation and/or forceps removal)Joshua Petersen DMD Work Phone: Start: 12-02-2024 End: 88-29-9181idyytaiks - periapical each additional radiographic imageJoshua Petersen DMD Work Phone: Start: 12-02-2024 End: 98-82-7197zckdhfpgv - periapical first radiographic imageJoshua Petersen DMD Work Phone: Start: 12-02-2024 End: 69-95-1404nmiw hygiene instructionsJoshua Petersen DMD Work Phone: Start: 06-96-7626CA ROZ PERF SPECT REST STRGeneric External Data ProviderStart: 61-49-7839Adwwdzewkf glycosylated Yumiko Castorena DO Work Phone: Start: 45-05-7845UK CHEST 2VGeneric External Data ProviderStart: 98-45-7551GEA CBC WITH AUTO DIFFGeneric External Data Provider Start: 91-43-5107HTB 12-LEADGeneric External Data ProviderStart: 31-80-7732Oeeam hip unilateral with pelvis 2-3 viewsGeneric External Data ProviderStart: 69-66-8893BUK CBC WITH AUTO DIFFLisa Aichholz PAVER LAYER Work Phone: Start: 39-82-7098Bbmouurtgc glycosylated c0kHucxrdqMarya Castorena DO Work Phone: Start: 12-33-3169Xtweqbdopc glycosylated y7gNltioppronny Castorena DO Work Phone: Start: 59-58-2008ADY CBC WITH AUTO DIFFLisa Aichholz PAVER LAYER Work Phone: Start: 11-01-2023 End: 39-69-2376AiyudhtvaqfCxdy Aichholz Work Phone: Start: 61-42-7279SmuauylbyleUeaf Louann PAVER LAYER Work Phone: Start: 52-23-3359Mqrgecz of percutaneous transluminal coronary angioplastyHistory of PTCALisa Aictimmyholz PAVER LAYER Work Phone: Start: 55-68-5352Eyybd cultureLisa Louann Work Phone: Start: 44-22-8301MNWCTMKUGLV OF MULTIPLE CORONARY ARTERIES USING ST [facility] JACQUESHAWYStart: 21-72-1355Gqtoffncnlm observation [Identifier] in Cervix by Cyto stainJanene Emirufus PAVER LAYER Work Phone: History of percutaneous transluminal coronary angioplastyHistory of PTCALisa Emiz Work Phone: Plan of Treatment DateCare ActivityDetailAuthorStart: 96-35-6407Qxnznkdsj for malignant neoplasm of colonNOMS HealthcareStart: 22-03-0753Daijyrog screeningDiabetes: Retinopathy ScreeningNOMS HealthcareStart: 64-68-2614Dnuff screening for proteinDiabetes: Urine Protein ScreeningNORI HealthcareStart: 05-05-2025 End: 11-60-9559Uvwgyck encounter procedureNOMS SWS FM 230Start: 03-19-2025 [facility] Work Phone: Start: 16-35-8032Xcmrmzwaml A1c measurementDiabetes: Hemoglobin Q5MDJNC HealthcareStart: 52-80-2637NyhxprAdventHealth Littleton Work Phone: Start: 42-34-6100GwgdYuma [facility] Hospital Work Phone: Start: 31-96-7992FzgmmnAdventHealth Littleton Work Phone: Start: 12-16-2024 End: 82-71-7779Bcmmnns encounter beaiufvkp66/02/2025 8:30 AM EDT Office Visit [facility] [address] [place] [address] Janene Lew, PAVER LAYER [address] [place] [phone] [facility] FMStart: 84-99-0431Dhlxufjnf vaccinationInfluenza Vaccine (#1)[facility] HealthcareStart: 12-04-2024 End: 84-09-5350Leqjlgq encounter ulywhpzmp87/21/2025 8:40 AM EDT Office Visit [facility] [address] [place] [phone] Janene Lew, PAVER LAYER [address] [place] [phone] [facility] FMStart: 37-80-7332Epahpvl management education, guidance, and counselingDietary management education, guidance, and counseling [facility] Centertart: 12-02-2024 End: 11-64-8049IflbYuma District Hospital Work Phone: Start: 11-03-2024 End: 25-95-7361Vanmzsm encounter procedureNOMS SWS FM 230Comment on above: ArrivedStart: 10-20-2024 End: 34-90-6008Tkoeeit encounter hnuxqqghj79/07/2025 10:30 AM EDT Office Visit [facility] [address] [place] [phone] Marya Castorena DO [address] [place] [address] [facility] FM 230Start: 10-04-2024 End: 01-19-9662GO Breast - bilateral ScreeningBilateral screening mammogram Imaging Routine Encounter for screening mammogram for malignant neoplasm of breast Expected: 10/04/2024 (Approximate), Expires: 11/03/2025[facility] Work Phone: Comment on above:Expected: 10/04/2024 (Approximate), Expires: 11/03/2025Start: 84-64-2333Alhoagycu for malignant neoplasm of breast MammogramNORI HealthcareStart: 38-69-1726Wngcjcngxl A1c measurementDiabetes: Hemoglobin W1FKBFA HealthcareStart: 09-03-2024 End: 57-18-8277Csswqib encounter inghqxoyd57/21/2025 9:40 AM EDT Office Visit [facility] [address] [place] [address] Janene Lew, PAVER LAYER [address] [place] [phone] [facility] CWM FMStart: 07-15-2024 End: 51-44-5251CP Ankle - left 3 ViewsXR ankle 3+ views left Imaging Routine Acute left ankle pain Expected: 07/15/2024, Expires: 07/15/2025[facility] Work Phone: Comment on above:Expected: 07/15/2024, Expires: 07/15/2025Start: 07-15-2024 End: 35-34-6287IC Foot - left 3 ViewsXR foot 3+ views left Imaging Routine Acute foot pain, left Expected: 07/15/2024, Expires: 07/15/2025[facility] HealthcareComment on above:Expected: 07/15/2024, Expires: 07/15/2025Start: 06-19-2024 End: 80-14-8751Yizezit encounter /06/2025 10:15 AM EST Office Visit [facility] [address] [place] [phone] Marya Castorena, [address] [place] [address] [facility] FM 230Start: 06-16-2024 End: 54-43-7974Ypyitnh encounter uilmmyazq13/03/2025 9:15 AM EST Office Visit [facility] [address] [place] [phone] Marya Castorena DO [address] [place] [address] [facility]EN[facility] FM 230Comment on above:ArrivedStart: 44-08-7455Bmtestdvra A1c measurementDiabetes: Hemoglobin Q2UMRZECox North Start: 40-33-7613Zkeyy screening for proteinDiabetes: Urine Protein Screening [facility] HealthcareStart: 03-06-2024 End: 418740-hxqoexhvynoyzs D3 [Mass/volume] in Serum or PlasmaVitamin D 25 hydroxy Lab Routine Vitamin D deficiency Expected: 03/06/2024 (Approximate), Expires: 03/06/2025[facility] HealthcareComment on above:Expected: 03/06/2024 (Approximate), Expires: 03/06/2025Start: 03-06-2024 End: 94-80-1867FQD W Auto Differential panel - BloodCBC and differential Lab Routine Coronary arteriosclerosis (CMS/HCC) Stage 3b chronic kidney disease (HCC) (CMS/HCC) Expected: 03/06/2024 (Approximate), Expires: 03/06/2025[facility] Work Phone: Comment on above:Expected: 03/06/2024 (Approximate), Expires: 03/06/2025Start: 03-06-2024 End: 95-62-1387Dqszbmtwu (Vitamin B12) [Mass/volume] in Serum or PlasmaVitamin B12 Lab Routine Vitamin B12 deficiency Expected: 03/06/2024 (Approximate), Expires: 03/06/2025[facility] HealthcareComment on above:Expected: 03/06/2024 (Approximate), Expires: 03/06/2025Start: 03-06-2024 End: 38-17-4050Tvujgfjzqwfsr metabolic 2000 panel - Serum or PlasmaComprehensive metabolic panel Lab Routine Primary hypertension (CMS/HCC) Coronary arteriosclerosis (CMS/HCC) Stage 3b chronic kidney disease (HCC) (CMS/HCC) Lower extremity edema Class 3 severe obesity due to excess calories with serious comorbidity and body mass index (BMI) of 45.0 to 49.9 in adult (CMS/HCC) Vitamin D deficiency Expected: 03/06/2024 (Approximate), Expires: 03/06/2025[facility] HealthcareComment on above:Expected: 03/06/2024 (Approximate), Expires: 03/06/2025Start: 03-06-2024 End: 64-47-0540Ywoqjrbi [Mass/volume] in Serum or PlasmaFerritin Lab Routine H/O bariatric surgery Expected: 03/06/2024 (Approximate), Expires: 03/06/2025[facility] HealthcareComment on above:Expected: 03/06/2024 (Approximate), Expires: 03/06/2025Start: 03-06-2024 End: 27-74-0281Bjoz and Iron binding capacity panel - Serum or PlasmaIron level Lab Routine H/O bariatric surgery Expected: 03/06/2024 (Approximate), Expires: 03/06/2025[facility] HealthcareComment on above:Expected: 03/06/2024 (Approximate), Expires: 03/06/2025Start: 03-06-2024 End: 11-66-0858Pgtlo 1996 panel - Serum or PlasmaLipid panel Lab Routine Coronary arteriosclerosis (CMS/HCC) Expected: 03/06/2024 (Approximate), Expires: 03/06/2025[facility] HealthcareComment on above:Expected: 03/06/2024 (Approximate), Expires: 03/06/2025Start: 03-06-2024 End: 37-24-4628Iedbulkibayo/Creatinine panel in random UrineMicroalbumin / creatinine, urine ratio Lab Routine Primary hypertension (CMS/HCC) Stage 3b chronic kidney disease (HCC) (CMS/HCC) Expected: 03/06/2024 (Approximate), Expires: 03/06/2025[facility] HealthcareComment on above:Expected: 03/06/2024 (Approximate), Expires: 03/06/2025Start: 03-06-2024 End: 35-89-1649Prdxkxwdyn complete panel - UrineUrinalysis with reflex microscopic (clean catch) Lab Routine Primary hypertension (CMS/HCC) Stage 3b chronic kidney disease (HCC) (CMS/HCC) Expected: 03/06/2024 (Approximate), Expires: 03/06/2025[facility] HealthcareComment on above:Expected: 03/06/2024 (Approximate), Expires: 03/06/2025Start: 03-06-2024 End: 59-74-8885Rfebjgb encounter procedureNOMERCY HOS[facility] [place] FMComment on above:Spinal stenosis of lumbar region at multiple levels (Primary Dx); Restless leg syndrome; URIEL (obstructive sleep apnea); Primary hypertension (CMS/HCC); Coronary arteriosclerosis (CMS/HCC); Stage 3b chronic kidney disease (HCC) (CMS/HCC); Swelling of both lower extremities; Lower extremity edema; Type 2 diabetes mellitus with stage 3a chronic kidney disease, without long-term current use of insulin (HCC) ([facility]/HCC); Class 3 severe obesity due to excess calories with serious comorbidity and body mass index (BMI) of45.0 to 49.9 in adult ([facility]); Bipolar affective disorder, remission status unspecified ([facility]); Generalized anxiety disorder ([facility]); Vitamin D deficiency; Vitamin B12 deficiency; H/O bariatric surgeryStart: 02-19-2024 End: 72-93-7666Lemcjoq encounter asntqwxoq56/05/2024 9:30 AM EST Office Visit [facility] [address] [facility] [address] [place] [phone] Marya Castorena DO [address] [place] [address] [place] [address] [facility] 230Start: 72-46-9396Zopwhwjim vaccination Influenza Vaccine (#1)[facility] HealthcareComment on above:Postponed from 12/16/2023 (Patient Does Not Have Time)Start: 91-90-9445Unqarblqkn A1c measurementDiabetes: Hemoglobin C8GLNXJ HealthcareStart: 12-05-2023 End: 41-44-0361Mfyai metabolic 1998 panel - Serum or PlasmaBasic metabolic panel Lab Routine Left lower quadrant abdominal pain Expected: 12/05/2023 (Approxima te), Expires: 12/04/2024[facility] HealthcareComment on above:Expected: 12/05/2023 (Approximate), Expires: 12/04/2024Start: 12-05-2023 End: 95-07-2683RJH W Auto Differential panel - BloodCBC and differential Lab Routine Left lower quadrant abdominal pain Expected: 12/05/2023 (Approximate), Expires: 12/04/2024[facility] HealthcareComment on above:Expected: 12/05/2023 (Approximate), Expires: 12/04/2024Start: 12-05-2023 End: 61-90-5754GJ Abdomen Single viewXR ABDOMEN 2 VIEW Imaging Routine Left lower quadrant abdominal pain Expected: 12/05/2023, Expires:12/04/2024[facility] Work Phone: Comment on above:Expected: 12/05/2023, Expires: 12/04/2024Start: 12-05-2023 End: 86-42-9873Ocnxfxl encounter llsqgsrru09/21/2024 8:40 AM EDT Office Visit [facility] [address] [place] [phone] Janene Lew, ELIER [address] [place] [address] Morbid (severe) obesity due to excess calories (CMS/HCC); Body mass index (BMI) 45.0-49.9, adult (CMS/HCC)[facility] FMComment on above: Morbid (severe) obesity due to excess calories (CMS/HCC); Body mass index (BMI) 45.0-49.9, adult (CMS/HCC)Start: 18-16-2704QaglrlgzfKettering Health Springfieldtart: 40-01-1203PnrgynkhyKettering Health Springfieldtart: 66-20-5873Fcvuaaua to nephrologistKettering Health Springfieldtart: 77-64-0284Teqewtsb admissionKettering Health Springfieldtart: 05-17-2023 Bacteria identified in Urine by CultureKettering Health Springfieldtart: 33-29-6644Gmppvsjdd for malignant neoplasm of cervixPap SmearCox North Start: 86-42-3495Fpxzntsex for malignant neoplasm of cervixHPV/CotestNOMS HealthcareStart: 33-02-5897Hszttthyr for malignant neoplasm of colonNOMS HealthcarePatient EducationOhiohealth Grant Medical Center Ctr Work Phone: Patient referralOhiohealth Grant Medical Center Ctr Work Phone: Renal function 1999 panel - Serum or PlasmaCleveland Clinic FoundationRenal function 1999 panel - Serum or PlasmaCleveland Clinic FoundationRenal function 1999 panel - Serum or [facility] Immunizations Immunization DateImmunizationNotesCare QczcytupXfcvoikz72-23-1034PODO-XEK-7 (COVID-19) vaccine, mRNA, spike protein, LNP, PF, saravanan-sucrose, 30 mcg/0.3 mL Marya Petznick DO Work Phone: NOMercy McCune-Brooks HospitalFpdjjiuoym62-92-1485Zoqsltfv, trivalent, recombinant, injectable influenza vaccine, preservative freeAllison Petznick DO Work Phone: [facility]Brooks HospitalKvtozafalw78-03-7734etzoenvxn virus vaccine, unspecified formulationAllison Petznick DO Work Phone: RKMercy McCune-Brooks HospitalYblzsfkszq75-59-7009fulcztlyc, injectable, quadrivalent, preservative freeLisa Aichholz PAVER LAYER Work Phone: [facility]OM[facility]-Brooks HospitalEghifonfdf51-09-6745qtinthgih virus vaccine, unspecified formulationLisa Aichholz PAVER LAYER Work Phone: [facility] NorthOmpxqgecgv82-64-8230lwngcryoh A and hepatitis B vaccineLisa Aichholz PAVER LAYER Work Phone: [facility] NorthTiybrueitb24-42-1638ciocao vaccine recombinant Janene Aichholz PAVER LAYER Work Phone: [facility] NorthVjkvbadexd27-66-0093dfebcsssf A and hepatitis B vaccineLisa Aichholz PAVER LAYER Work Phone: Cox NorthSfgeuskobv54-46-8310ijuvxsrrr A and hepatitis B vaccineLisa Aichholz PAVER LAYER Work Phone: [phone] [place], [place] [address]Xvxydewgfj26-49-7211pahionoxy, injectable, quadrivalent, preservative freeLisa Aichholz PAVER LAYER Work Phone: [phone] [place], [place] [address]Bptkbsfotc72-26-5102aqydlxc toxoid, reduced diphtheria toxoid, and acellular pertussis vaccine, adsorbedLisa Aichholz PAVER LAYER Work Phone: [phone] [place], [place] [address]Zzdbyowavw71-97-3003gislqx vaccine recombinant Janene Aichholz PAVER L[employer]ER Work Phone: [phone] [place], [place] [address]Zqziygubtj11-91-2669PXMMA-50 mRNA, Comirnaty (Etherpad)Janene Aichholz Work Phone: [phone] [place], [place] 9804001-31-2022Pfizer Purple Cap SARS-CoV-2 VaccinationLisa Aichholz PAVER LAYER Work Phone: [phone] [place], [place] [address]Obpwyzrfro03-42-2501FBCDR-93 mRNA, Comirnaty (Etherpad)Janene Aichholz Work Phone: [phone] [place], [place] 9804005-04-2021Pfizer Purple Cap SARS-CoV-2 VaccinationLisa Aichholz PAVER L[employer]ER Work Phone: [phone] [place], [place] [address]Hhzngujbhw04-00-0142PALNP-33 mRNA, Comirnaty (Etherpad)Janene Aichholz Work Phone: [phone] [place], [place] 9804011-25-2020influenza, injectable, quadrivalent, preservative freeLisa Aichholz P[employer]ER [employer]ER Work Phone: [phone] [place], [place] [address]Kscdhmvgdt23-70-3521zebwvaqsfppn polysaccharide vaccine, 23 valentLisa Aichholz PAVER LAYER Work Phone: [phone] [place], [place] [address]Neikkiapkd01-24-7359mhqvrywpx, seasonal, injectableLisa Aichholz PAVER LAYER Work Phone: [phone] [place], [place] [address]Dbdaegzery22-39-1343flbobmatfxqb polysaccharide vaccine, 23 valentLisa Aichholz PAVER LAYER Work Phone: [phone] [place], [place] [address]Xqfuuvvgjh61-73-9895otqjfjbvf, injectable, quadrivalent, preservative freeLisa Aichholz Work Phone: [facility]10-18-2019influenza, injectable, quadrivalent, contains preservativeDale Hamilton Other [place] mySkin Other 11804967-92-6704gzdhwrjtz, injectable, quadrivalent, preservative freeLisa Aichholz Work Phone: [facility]11-30-2018influenza, injectable, quadrivalent, contains preservativeDale Hamilton Other [facility] my[facility] Other 10477430-65-5399bqgnqndqh, injectable, quadrivalent, preservative freeLisa Aichholz PAVER LAYER Work Phone: [facility] NorthAghheogbkx09-57-6000wcxckyydbxpa conjugate vaccine, 13 valentLisa Aichholz PAVER LAYER Work Phone: [facility] NorthXhbanvcvad97-62-3978qiaujwistteg polysaccharide vaccine, 23 valentLisa Aichholz PAVER LAYER Work Phone: [facility] Payers DatePayer CategoryPayerPolicy [id number] Health [id number] [facility] Hospital Member Subscriber Plan / Payer (Effective 2023-Present) Name: Sherly Humphreys Relation to Subscriber: Self Name: Sherly Humphreys Payer ID: Not on file Type: Not on file Address: [facility] [address] [place] [id number] 71-41-0811Ucnmmvi7.2.840.273141.1.13.693.2.7.3.722674.75286-31-1655Odqrmyw [id number]-ukk [id number] 2.16.840.5.538878.12315027-17-4329Rvfm-lve63[id number] 2.16.840.1.682208.3.57[id number] 2.16840.1.788895.3.579.2.15906-36-3875Edgmzzm9450989 2.840.1.452177.3.579.[id number] 2.840.1.435353.3.57[id number] 2.16840.1.373077.3.57[id number] 2.16.840.1.970914.3.57[id number] 2.16.840.1.933521.3.57[id number] 2.16840.1.196555.3.57[id number] 2.16.840.1.864488.3.579.2.76266-27-3767Mjohgos4046519 2.16840.1.098434.3.57[id number] 2.16840.1.643324.3.579.2.86068-31-6970Xzwlgtp6085170 2.16840.1.037458.3.579.2.[id number] 2.16840.1.274578.3.579.2.20315-68-0129Kwmafdj4656316 2.16840.1.220856.3.579.2.85389-43-1522Zxazlue6967192 2.840.1.660198.3.579.2.80474-66-1914Kyewoun5213506 2.840.1.995640.3.579.2.39712-83-6735Nnhvccn3406428 2.840.1.363433.3.57[id number] 2.840.1.930459.3.57[id number] 2.0.1.105362.3.57[id number] 2.840.1.123341.3.57[id number] 2..1.708683.3.579.2.534925-64-7805Rgjaoby2438207 2.0.1.983134.3.579.2.324483-95-5786Wzlhuza3110640 2.0.1.916879.3.579.2.707014-46-1203Xcyuvlz3692393 2.0.1.233064.3.579.2.828157-40-6324Lqebona6501203 2.0.1.457166.3.579.2.774706-94-7761Xbsnlbq3745151 2.840.1.016437.3.579.2.6[id number] 2.840.1.216336.3.579.[id number] 2.0.1.102652.3.579.2.00[id number] 2.840.1.967585.3.579.2.46916-12-7008B[facility] [id number] 2.0.3.520921.90772811-52-9573Yhijitc65935209684 2..1.045957.19Medicaid Anthem [place] [id number] Health [id number] 2..1.276902.19UnknownAnthem /[id number] n2oo55m8-8021-0q9d-0977-[id number] 2.0.1.1[id number] 2.0.1.840973.3.579.2.531 [id number] 2.0.1.083907.3.579.2.531 Social History DateTypeDetailFacilityUnknown if ever smokedNort mySkin Other start: 05-02-2023 End: 46-54-0556Emh Assigned At [facility] HealthcareStart: 08-12-2021 End: 67-86-6077Sqnkeed smoking status NHISNever smoked tobacco (finding) [facility] CenterStart: 52-21-4950Jjb Assigned At [facility] Hospitaltart: 35-68-9947Amltdlf use and exposure Smokeless tobacco non-userL[facility]OSPITAL HealthcareStart: 02-19-2024 End: 87-45-8864Pneveiisb beverage intakeLifetime non-drinker (finding)[facility] HealthcareStart: 05-02-2023 End: 79-67-9595Mcaxsup of Social functionNOMS HealthcareWithin the last year, have you been afraid of your partner or ex-partner?NoNOMS HealthcareAre you now , , , , never or living with a partner? Never marriedNOMS HealthcareHow often to you have a drink containing alcohol? NeverNOMS HealthcareHow many standard drinks containing alcohol do you have on a typical day?Patient does not drinkNOMS HealthcareHow hard is it for you to pay for the very basics like food, housing, medical care, and heatingVery hardNOMS HealthcareDo you feel stress - tense, restless, nervous, or anxious, or unable to sleep at night because yourmind is troubled all the time - these days [OSQ] Rather muchNOMS Healthcare(I/We) worried whether (my/our) food would run out before (I/we) got money to buy more.Sometimes trueNOMS HealthcareStart: 46-95-0111Nxeedbg Commentcaffeine: coffee, soda/popNOMS HealthcareStart: 18-88-7047Opc assigned at birthNot on [facility] hospitalNORI HealthcareSexFemale ([facility]) [facility] FoundationHow hard is it for you to pay for the very basics like food, housing, medical care, and heatingHardNOMS HealthcareDo you feel stress - tense, restless, nervous, or anxious, or unable to sleep at night because yourmind is troubled all the time - these days [OSQ]To some extentNOMS Healthcare(I/We) worried whether (my/our) food would run out before (I/we) got money to buy more.Often trueNOMS HealthcareStart: 01-91-5646Ndjpvxr intake Alcohol Use [facility]tart: 96-49-8071Vdkydem use and exposureNon-Smoking Tobacco Use [facility] Hospitalexual OrientationStraight or heterosexualYuma District Hospital Work Phone: Start: 55-47-1409Jtwfjw identityFeNortheast Health SystemNEGATED: Highlighted rowStart: NINFHistory of tobacco use Passive smokerNOMS HealthcareNEGATED: Highlighted rowStart: 83-42-0965Ptftgxf smoking status NHISNever smokerYuma District HospitalNEGATED: Highlighted rowStart: 30-64-6821Idrvzzv of tobacco useCurrent non-[facility] AuroraNEGATED: Highlighted rowStart: 75-64-2310Ehqsgco smoking status NHISUnknown if ever smokedYuma District Hospital Medical Equipment Procedure CodeEquipment CodeEquipment Original TextEquipment IdentifierDatesOnce a day Use as [id number]: 07-02-2023 End: 80-66-8784Wixw [id number]: 11-19-2023 End: 63-62-5669Csqeusyc bg levels once a [id number]: 92-36-8691Gkxismkd bg levels once a [id number]: 11-03-2024 Goals DatePatient GoalDesired Activity/State Functional Status FxhsZovbxskqvwDnjqwwJpmraaph95-71-5132Uadozio Health Questionnaire 2 item (PHQ- 2) [Reported]Cox NorthJdbrwzudrh49-54-3716Irzaliqlfa statusPatient at Baseline [facility] Work Phone: Mental Status XyvdYgxiyqnzxgExhiwlBcyposxw64-04-9836Qsfxdlmxp functionCognitive Status Patient at BaselineBlanchard Valley Health System Work Phone: Clinical Notes 08-30-2021 to 12-30-2024 Note Date & OnbfPuueCagobzne30-12-0531 History of Present illness Narrative* Encounter Date Complaint History Of Prese nt Illness Endo Endo [facility] Work Phone: 1(816) 508-533808-29-2025 Note- proceed with coronary angiogram, discussed risks including stroke, MO, . Patient agreeable to proceed. No associated orders from this encounter found during lookback period of 72 hours.[facility]08-19-2025 Evaluation note* Type Assessment Date assessment Body mass index [BMI] 39.0-39.9, adult [facility] Work Phone: 1(499) 430-934708-19-2025 History of Present illness Narrative* Encounter Date Complaint History Of Prese nt Illness Periodic exam periodic exam [facility] Work Phone: 1([phone] 474-392008-19-2025 Instructions* Date Instruction Additional Infor elio Dietary management e ducation, guidance, and counseling Related to Body mass index [BMI] 39.0-39.9, adult [facility] Work Phone: 1(323) 769-394008-13-2025 Evaluation note* Diagnosis Onset Date Resolution Status Admit Date Diabetic nephropathy associated with typ e 2 diabetes mellitus acuteAugust 2024 9:38amHyperkalemiaacuteAugust 2024 9:38am HyperuricemiaacuteAugust 2024 9:38amHypomagnesemiaacuteAugust 2024 9:38amIron deficiencyacuteAugust 2024 9:38amLocalized edemaacuteAugust 2024 9:38amMorbid obesityacuteAugust 2024 9:38amStage 3b chronic kidney diseaseacuteAugust 2024 9:38amVitamin B12 deficiencyacuteAugust 2024 9:38amVitamin D deficiencyacuteAugust 2024 9:38amHypertensive nephropathyresolvedAugust 2024 9:38amHypertensionacuteSept2024 8:42amIntractable back painacuteSept2024 8:42amMorbid obesityacute Bambi 2024 8:42amStage 3b chronic kidney diseaseacuteSeptember 2024 8:42am [facility] Work Phone: 1(145) 479-609207-21-2025 History of Present illness Narrative* Marya Castorena DO - 11/03/2024 1:31 PM EDTAssociated Problem(s): [...] Muscle spasm Stage 3b chronic kidney disease ([facility]-HCC) Displacement of lumbar intervertebral disc with [...] index (BMI) of36.0 to 36.9 in adult ([facility]) Type 2 diabetes mellitus with other circulatory [...] q7 days SC (7.5 MG/0.5ML SOAJ) Labs [facility] HEMOGLOBIN A1C/HEMOGLOBIN.TOTAL:MFR:PT:BLD:QN: 5.2 Outpatient prescription The ASCVD [...] index (BMI) of36.0 to 36.9 in adult ([facility]-HCC) Type 2 diabetes mellitus with other circulatory complications ([facility]) - Primary Other Visit Diagnoses Type 2 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 LANCETS (ONETOUCH DELICA PLUS [id number]) [facility] Fsbs bid I have reviewed and reconciled the history and medication list with the patient today. documented in this encounterCox NorthOloazmskeh88-58-9062 [facility] Note Chief Complaint: Patient is here today for surgery clearance. Patient states they found a problem while doing her pre op testing. Patient states she has no idea what they found and was told to see her sediment remediation consultant. Patient complains of GARNER with walking really [...] Disp: , Rfl: sacubitril-valsartan (more content not included)...[facility]05-21-2025 History of Present illness Narrative* TOSHIA [...] needs refills on the amlodipine * Janene Lew, PAVER LAYER - 09/03/2024 9:40 AM EDT Images from [...] in the last year: no Specialist: Shalini, [facility] Cardiology, Ama[place], Dr Huffman HCPOA/Living [...] improvement. Hypertensive end-organ damage includes kidney disease, CAD/MO and heart failure. There is no history [...] mononitrate ER (IMDUR) 30 mg, Daily Lancets (Osiris TherapeuticsTouch Delica Plus Vbmtpc05B) misc Fsbs bid metoprolol succinate XL (TOPROL-XL) [...] Nephrolithiasis 07/02/2023 URIEL (obstructive sleep apnea) 04/30/2023 Sfuy-EIPQN-25 condition Restless leg syndrome Seasonal allergies 04/30/2023 [...] Problem List Items Addressed This Visit Hypertension (CMS/[facility]) Please check blood pressure daily and record DASH diet Limit caffeine Take medication as directed Contact office if chest pain, pressure, dizziness, shortness of breath, swelling legs Recommend slow position changes Continue current meds Cont ASA, statin, b seema Relevant Medications amLODIPine (Norvasc) 10 MG tablet Type 2 diabetes mellitus with stage 3a chronic kidney disease, without long-term current use of insulin ([facility]) ([facility]) Check blood sugars daily, notify if <70 [...] Pt is managed by dr castorena Hyperlipidemia ([facility]) On statin therapy as well as fenofibrate Check labs yearly and prn dose changes Encounter for screening mammogram for malignant neoplasm of breast Relevant Orders Bilateral screening mammogram Chronic diastolic heart failure ([facility]) Follows with cardiology Current meds: statin, lasix, entresto, b seema, and amlodipine Recommend daily weight, limit sodium, if weight increases by more than 3 pounds in 24 hours notify cardiology Stage 3b chronic kidney disease (HCC) ([facility]) Is established with nephrology for mgmt/monitoring Continue to keep blood pressure and DM at goal Class 2 severe obesity due to excess calories with serious comorbidity and body mass index (BMI) of38.0 to 38.9 in adult ([facility]) Discussed with patient their BMI (actual, verses [...] - 09/03/2024 6:39 AM EDTAssociated Problem(s): Hyperlipidemia ([facility]) On statin therapy as well as fenofibrate Check labs yearly and prn dose changes * Janene Lew NP - 09/03/2024 6:39 AM EDTAssociated Problem(s): Type 2 diabetes mellitus with stage 3a chronic kidney disease, without long-term current use of insulin ([facility]) ([facility]) Check blood sugars daily, notify if <70 [...] (BMI) of 38.0 to 38.9 in adult ([facility]) Discussed with patient their BMI (actual, verses [...] ASA, statin, b seema documented in this [facility]05-21-2025 Instructions* Patient Instructions* Janene Lew NP - 09/03/2024 9:[address] Rebolledo if we should change to Vit D2 once a week No other changes in meds or doses documented in this encounterCox NorthGyenhhklhn55-89-9536 History of Present illness Narrative* Janene Lew NP - 07/15/2024 12:19 PM EDT Contact provider, had a fall the other day on porch, now left ankle and foot pain, would like an xray documented in this encounterCox NorthFtbgxdkrvp81-68-0446 History of Present illness Narrative* Marya Castorena DO - 06/16/2024 9:36 AM ESTAssociated Problem(s): Type 2 diabetes mellitus with other circulatory complications ([facility]) During the appointment today all pertinent labs, [...] mg Weekly SC (7.5 MG/0.5ML SOAJ) Labs [facility] HEMOGLOBIN A1C/HEMOGLOBIN.TOTAL:MFR:PT:BLD:QN: 5.5 Outpatient prescription The ASCVD [...] disease, without long-term current use of insulin ([facility]) ([facility]) Relevant Orders POCT glycosylated hemoglobin (Hb A1C) docked device (Completed) Class 2 severe obesity due to excess calories with serious comorbidity and body mass index (BMI) of38.0 to 38.9 in adult ([facility]) - Primary Type 2 diabetes mellitus with other circulatory complications ([facility]) During the appointment today all pertinent labs, [...] crush or chew.. LANCETS (ONETOUCH DELICA PLUS [id number]) MISC Fsbs bid METOPROLOL SUCCINATE XL (TOPROL-XL) [...] the patient today. documented in this [facility]11-21-2024 History of Present illness Narrative* Jaenne Lew NP - 03/06/2024 9:59 AM ESTAssociated [...] problems. Hypertensive end-organ damage includes kidney disease, CAD/MO and heart failure. Identifiable causes of hypertension [...] mononitrate ER (IMDUR) 30 mg, Daily Lancets (Osiris TherapeuticsTouch Delica Plus Rrhvtn16K) [facility] Fsbs bid metoprolol succinate XL (TOPROL-XL) 12.5 [...] pain Clostridioides difficile diarrhea 07/02/2023 Coronary arteriosclerosis ([facility]) 04/30/2023 COVID-19 Degenerative disc disease, lumbar 07/02/2023 Depression ([facility]) 04/30/2023 Diabetes mellitus, type 2 ([facility]) 04/30/2023 Dyspnea 07/02/2023 Elevated liver enzymes 07/02/2023 Family history of cancer Fatigue GERD (gastroesophageal reflux disease) 04/30/2023 H/O bariatric surgery 07/02/2023 Headache 07/02/2023 History of fusion of cervical spine Hyperkalemia Hyperlipidemia ([facility]/HCC) 04/30/2023 Hypertension (CMS/HCC) 04/30/2023 Hypomagnesemia 04/30/2023 Insomnia 07/02/2023 Irritable bowel syndrome with diarrhea 07/02/2023 Lower extremity edema 04/30/2023 Lumbar disc herniation 07/02/2023 Microscopic hematuria 04/30/2023 Migraine headache (CMS/HCC) 04/30/2023 Myalgia Nephrolithiasis 07/02/2023 URIEL (obstructive sleep apnea) 04/30/2023 Pdmm-LRWFA-06 condition Restless leg syndrome Seasonal allergies 04/30/2023 Spinal stenosis of lumbar region at multiple levels 04/30/2023 Spinal stenosis of thoracolumbar region 04/30/2023 Stage 3 chronic kidney disease due to type 2 diabetes mellitus (HCC) ([facility]) 04/30/2023 Swelling of both lower extremities 04/30/2023 [...] mgmt for oral medications and treatment plan [facility] pain mgmt, ?? Possible spinal cord [...] disease, without long-term current use of insulin ([facility]) ([facility]) Check blood sugars daily, notify if <70 [...] Relevant Orders Iron level Ferritin Bipolar disorder ([facility]) Continue with psych for management of her mental health Generalized anxiety disorder ([facility]) Continue with psych for management of symptoms and meds Stage 3b chronic kidney disease (HCC) ([facility]) Is established with nephrology for mgmt/monitoring Continue [...] index (BMI) of45.0 to 49.9 in adult ([facility]) Has lost approx 64 pounds since 07/07 [...] 6:47 AM ESTAssociated Problem(s): Generalized anxiety disorder ([facility]) Continue with psych for management of symptoms and meds * Janene Lew NP - 03/06/2024 6:47 AM ESTAssociated Problem(s): Bipolar disorder ([facility]) Continue with psych for management of her mental health * Janene Lew NP - 03/06/2024 6:46 AM ESTAssociated Problem(s): Class 3 severe obesity due to excess calories with serious comorbidity and body mass index (BMI) of 45.0 to 49.9 in adult ([facility]) Has lost approx 64 pounds since 07/07 [...] disease, without long-term current use of insulin ([facility]) ([facility]) Check blood sugars daily, notify if <70 [...] complete her FMLA documented in this [facility]11-21-2024 Instructions* Patient Instructions* Janene Lew NP - 03/06/2024 9:20 AM EST Call CPAP company: see if they need a compliance report, they should be able to down load that for you Keep up great work with diabetes and weight loss documented in this [facility]11-05-2024 History of Present illness Narrative* Marya Castorena, - 02/19/2024 9:49 AM ESTAssociated Problem(s): Type 2 diabetes mellitus with other circulatory complications ([facility]) During the appointment today all pertinent labs, [...] disease, without long-term current use of insulin ([facility]) ([facility]) Class 3 severe obesity due to excess calories with serious comorbidity and body mass index (BMI) of45.0 to 49.9 in adult ([facility]) Type 2 diabetes mellitus with other circulatory complications ([facility]) - Primary During the appointment today all [...] morning. Do not crush or chew.. LANCETS ([employer]ical TherapeuticsTOUCH DELICA PLUS [id number]) MISC Fsbs bid METOPROLOL SUCCINATE XL (TOPROL-XL) [...] with the patient today. documented in this encounterCox [id number] [facility] Chief Complaint: [...] S1, S2 present. R (more content not included)...[facility]08-21-2024 History of Present illness Narrative* Janene Lew NP - 12/05/2023 9:11 AM EDTAssociated Problem(s): Restless leg syndrome Continue mirapex * aJnene Lew NP - 12/05/2023 9:10 AM EDTAssociated [...] when standing and laying down. * Janene Lew, PAVER LAYER - 12/05/2023 8:40 AM EDT Images from [...] Daily, Do not crush or chew. Lancets ([employer] Plus [id number]) misc Fsbs bid metoprolol succinate XL (TOPROL-XL) [...] Nephrolithiasis 07/02/2023 URIEL (obstructive sleep apnea) 04/30/2023 [id number] condition Restless leg syndrome Seasonal allergies 04/30/2023 [...] Visit Body mass index (BMI) 45.0-49.9, adult ([facility]) Stage 3b chronic kidney disease (HCC) ([facility]) Restless leg syndrome Continue mirapex Morbid (severe) obesity due to excess calories ([facility]/HCC) Left lower quadrant abdominal pain - [...] panel CBC and differential documented in this encounterCox [id number] Evaluation note* Encounter Date Diagnosis Assessment Notes [...] procedure explained to patient; patient verbalizes understanding. August,Lumbosacral spondylosis (ICD-10 - M47.817) In the future if the pain persists, we can consider proceeding with a lumbar facet MBB follwoed by a RFA if applicable under fluoroscopic guidance. August,Lumbar radiculopathy (ICD-10 - M54.16) Patient reports 100% relief of lower extremity pain following procedure August,Other chronic pain (ICD-10 - G89.29) Proceed with current treatment plan [facility] Other 03-20-2023 Evaluation note* Encounter Date Diagnosis Assessment Notes Treatment Notes Treatment Clinical Notes Jun, Lumbar radiculopathy (ICD-10 - M 54.16) 51 year old female presents with complaints of low back pain with radiation into the right groin and to the anterior and interior aspect of the right thigh. She states this pain has been present since April of this year and has been a constant sharp pain. Back pain orginally started in 2014 aftera fall resulting in ruptured discs in multiple places in her spine. She notes prior back surgery [id number] and July 2020. She also notes prior [...] procedure explained to patient; patient verbalizes understanding. Jun,Mid back pain (ICD-10 - M54.9) Proceed with current treatment plan Jun,Sacroiliitis (ICD-10 - M46.1) In the future if the pain persists, we can consider proceeding with a right sacroiliac joint injection under fluoroscopic guidance Jun,Lumbosacral spondylosis (ICD-10 - M47.817) In the future if the pain persists, we can consider proceeding with a lumbar facet MBB follwoed by a RFA if applicable under fluoroscopic guidance. Jun,Other chronic pain (ICD-10 - G89.29) Proceed with current treatment plan Jun,OtherMedical decision making shows a new problem to me with further workup planned or suggested with thepotential for extensive treatment options that were considered with the most applicable given this patient's situation as noted above. Treatment options considered include a combination of physical th erapy approaches, pharmacologic management, and interventional procedures. Those most applicable tothe patient were discussed at this time. Risk [...] prolonged functional impairment requiring constant patient reassessment andhigh-level medical decision making. The amount and complexity of data reviewed is high given that patient labs, radiology reports, and other test were obtained, reviewed and summarized as applicable from the physician portal and/or outside medical records. Pertinent positive and negative findings were considered in medical decision-making. [facility] Other 03-11-2023 Hospital Discharge instructions Additional Instructions [...] bowel control high fever or any other concernsOhio[facility] Work Phone: [phone]) 804-475801-27-2023 Evaluation note* Encounter Date Diagnosis Assessment Notes Treatment Notes Treatment Clinical Notes Apr, Thoracic myelopathy (ICD-10 - M4 7.14) Apr,hronic right-sided lumbar radiculopathy (ICD-10 - M54.16)This is a patient well-known to me. She has had a herniated disc at T12-L1 that was operated on previously with some improvement. She presented a year or 2 ago with severe radiculopathy on that side,underwent a revision microdiscectomy and actually got somewhat better. But her main issue is she will have up to 2 or 3 weeks of whenever she moves to the side she has pain down her right flank into t he groin on the right which is probably a chronic T12 or L1 radiculopathy and then weeks of symptoms that are not there at all. She has no back pain, she has no symptoms that would lead me to believethere is instability. The symptoms have been present for over 5 years, and they have been somewhat controlled with Gabapentin, which may need to be increased, but in my opinion this needs to be done by a chronic pain management doctor not a surgeon. I have reviewed the most recent MRI of the lumbarspine independently and compared to previous; there is a small disc herniation there at T12-L1 I donot believe this is surgical. Almost all of the findings are scar tissue related. I would recommendchronic pain management, possibly a dorsal column stimulator consideration, and probably manipulation of her gabapentin. I do not see a surgical lesion at this point. [facility] 01-10-2023 Evaluation note* Encounter Date Diagnosis [...] follow-up with the patient in 4 months Apr,Hypertensive nephropathy (ICD-10 - I12.9)Patient is on multiple blood pressure medications. Blood pressure target below 130/80. Continue same blood pressure medications. I asked the patient to monitor blood pressure at home and to follow low-salt diet. Apr,iabetic nephropathy associated with type 2 diabetes mellitus (ICD- 10 - E11.21)Follows with her PCP for diabetes control. Patient on oral medications pioglitazone and glipizide. I explained the patient the necessity of controlling diabetes to preserve kidney function Apr,Localized edema (ICD-10 - R60.0)Patient is currently taking Lasix 20 mg once daily up to 40 mg as needed. Advised the patient to follow low-salt diet Apr,Hyperlipidemia, unspecified hyperlipidemia type (ICD-10 - E78.5) Patient is on statin and fenofibrate follows with her PCP Apr,Morbid obesity (ICD-10 - E66.01)Encouraged weight loss [facility] Other 10-12-2022 Evaluation note* Encounter Date Diagnosis [...] she go forward with a mask fitting. Shewould like to try a nasal mask with a chin strap. A prescription was sent to the [employer] for new supplies throughout the year, as well as a mask fitting. She was encouraged to continue to use her machine nightly throughout the entire night as this does provide clinical benefit. She will follow-up in sleep clinic in 1 year or sooner pending results of download. Jan,Essential hypertension (ICD-10 - I10)Positive effects of controlled URIEL and hypertension were reviewed. Control of sleep apnea will frequently have a positive effect on blood pressure control, and may additionally reduce blood pressure lability. Blood pressure control frequently worsens with uncontrolled sleep apnea, and improves with effective utilization of treatment. Jan,GERD (gastroesophageal reflux disease) (ICD-10 - K21.9)Nocturnal reflux is common with sleep apnea, as negative intrathoracic pressures during apnea can result in inadvertant esophageal reflux. 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 we will continue to monitor Jan,Morning headache (ICD-10 - R51.9)headaches of all types, but particularly migraine headaches, are sensitive to sleep quality and quantity. Many patients with headache find improvements in severity and frequency after sleep problems are resolved. Jan,therCall if any questions or problems. Patient is advised to work on healthy diet choices and appropriate servings, weight control, regular exercise as directed, and reduce fat intake. Use machine regularly, and keep up with mask changes as needed. Call if problems with mask toleration, increased sleepiness, or poor response to treatment. . [facility] Other 08-23-2022 Evaluation note* Encounter Date Diagnosis Assessment Notes Treatment Notes Treatment Clinical Notes Nov, Other chronic pain (ICD-10 - G89 .29) Despite other medical maladies the patient is [...] by family physician when refills are needed. Nov,Herniation of thoracolumbar intervertebral disc (ICD-10 - M51.25) [facility] Other 07-28-2022 Evaluation note* Encounter Date Diagnosis Assessment Notes Treatment Notes Treatment Clinical Notes Oct, Other chronic pain (ICD-10 - G89 .29) Oct,Herniation of thoracolumbar intervertebral disc (ICD-10 - M51.25) This patient no longer has burning and severe pain in her thigh which was relative to the recurrentdisc herniation. She has bilateral chronic low back pain which she had prior to surgery and is again bothering her. 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 Sep,Thoracic myelopathy (ICD-10 - M47.14) [facility] [employer] Other 05-17-2022 Evaluation note* Encounter Date Diagnosis Assessment Notes Treatment Notes Treatment Clinical Notes August, Lumbar radiculopathy (ICD-10 - M 54.16) This patient had a recurrent disc T12-L1 [...] Overall she is making a good recovery [facility] [employer] Other consult note* Clinical Note Date No Information [facility] Work Phone: Discharge summary* Clinical Note Date No Information [facility] Work Phone: Evaluation noteNo InformationNortHoly [facility] [employer] Other evaluation noteNo assessment information available [facility] [employer] Work Phone: Evaluation note* Diagnosis Onset Date Resolution Status Diabetic nephropathy associated with typ e 2 diabetes mellitus acuteHyperuricemiaacuteHypomagnesemiaacuteIron deficiencyacuteLocalized edema acuteMorbid obesityacuteStage 3b chronic kidney diseaseacuteVitamin B12 deficiencyacuteVitamin D deficiencyacuteHypertensive nephropathyresolvedAcute kidney injury superimposed on CKDacuteDiabetic nephropathy associated with type 2 diabetes mellitusacuteAnemia of renal diseaseresolvedHypertensive nephropathy resolved [facility] [employer] Work Phone: Evaluation note* Diagnosis Onset Date Resolution Status Diabetic nephropathy associated with typ e 2 diabetes mellitus acuteHyperuricemiaacuteHypomagnesemiaacuteIron deficiencyacuteLocalized edema acuteMorbid obesityacuteStage 3b chronic kidney diseaseacuteVitamin B12 deficiencyacuteVitamin D deficiencyacuteHypertensive nephropathyresolvedAcute kidney injury superimposed on CKDacuteDiabetic nephropathy associated with type 2 diabetes mellitusacuteAnemia of renal diseaseresolvedHypertensive nephropathy resolvedDiabetic nephropathy associated with type 2 diabetes mellitusacute HyperkalemiaacuteHyperuricemiaacuteHypomagnesemiaacuteIron deficiencyacute Localized edemaacuteMorbid obesityacuteStage 3b chronic kidney diseaseacute Vitamin B12 deficiencyacuteVitamin D deficiencyacuteHypertensive nephropathy resolved [facility] Work Phone: Evaluation note* Diagnosis Primary hypertension ([facility])- Primary Unspecified essential hypertension Gastroesophageal reflux disease, unspecified whether esophagitis present Microscopic hematuria Lower extremity edema Edema Type 2 diabetes mellitus without complication, without long-term current use of insulin ([facility]) Stage 3 chronic kidney disease due to type 2 diabetes mellitus (HCC) ([facility]) Mixed hyperlipidemia ([facility]) Mixed hyperlipidemia Migraine without aura and without status migrainosus, not intractable ([facility]) Encounter for screening mammogram for malignant neoplasm of breast Colon cancer screening Special screening for malignant neoplasms, colon BMI 50.0-59.9, adult ([facility]) Heel pain, bilateral Type 2 diabetes mellitus without complication, without long-term current use of insulin ([facility])- Primary History of anuria Stage 3 chronic kidney disease due to type 2 diabetes mellitus (HCC) ([facility]) BMI 50.0-59.9, adult ([facility]) URIEL (obstructive sleep apnea) Obstructive sleep apnea (adult) (pediatric) Primary hypertension ([facility]) Unspecified essential hypertension Chronic diastolic heart failure ([facility]) Chronic diastolic heart failure Depression, unspecified depression type ([facility]) Type 2 diabetes mellitus without complication, without long-term current use of insulin ([facility])- Primary Stage 3 chronic kidney disease due to type 2 diabetes mellitus (HCC) ([facility]) BMI 50.0-59.9, adult ([facility]) Lower extremity edema Edema Dental infection- Primary Type 2 diabetes mellitus with stage 3 chronic kidney disease, without long-term current use of insulin, unspecified whether stage 3a or 3b CKD (HCC) ([facility])- Primary Bipolar affective disorder, remission status unspecified ([facility]) Restless leg syndrome Restless legs syndrome (RLS) URIEL (obstructive sleep apnea) Obstructive sleep apnea (adult) (pediatric) Primary hypertension ([facility]/HCC) Unspecified essential hypertension Chronic diastolic heart failure ([facility]) Chronic diastolic heart failure Stage 3 chronic kidney disease due to type 2 diabetes mellitus (HCC) ([facility]) Seasonal allergies Allergic rhinitis, cause unspecified BMI 50.0-59.9, adult ([facility]) Type 2 diabetes mellitus with stage 4 chronic kidney disease, without long-term current use of insulin ([facility])- Primary Type 2 diabetes mellitus without complication, without long-term current use of insulin ([facility]) Left lower quadrant abdominal pain- Primary Morbid (severe) obesity due to excess calories ([facility]) Body mass index (BMI) 45.0-49.9, adult ([facility]) Restless leg syndrome Restless legs syndrome (RLS) Stage 3b chronic kidney disease (HCC) ([facility]) Type 2 diabetes mellitus with other circulatory complications ([facility])- Primary Type 2 diabetes mellitus with stage 4 chronic kidney disease, without long-term current use of insulin ([facility]) Type 2 diabetes mellitus with stage 3a chronic kidney disease, without long-term current use of insulin (HCC) ([facility]) Class 3 severe obesity due to excess calories with serious comorbidity and body mass index (BMI) of45.0 to 49.9 in adult ([facility]) documented in this encounter [facility] Healthcare[facility]* Diagnosis Primary hypertension ([facility])- Primary Unspecified essential hypertension Gastroesophageal reflux disease, unspecified whether esophagitis present Microscopic hematuria Lower extremity edema Edema Type 2 diabetes mellitus without complication, without long-term current use of insulin ([facility]) Stage 3 chronic kidney disease due to type 2 diabetes mellitus (HCC) ([facility]) Mixed hyperlipidemia ([facility]) Mixed hyperlipidemia Migraine without aura and without status migrainosus, not intractable ([facility]) Encounter for screening mammogram for malignant neoplasm of breast Colon cancer screening Special screening for malignant neoplasms, colon BMI 50.0-59.9, adult ([facility]) Heel pain, bilateral Type 2 diabetes mellitus without complication, without long-term current use of insulin ([facility])- Primary History of anuria Stage 3 chronic kidney disease due to type 2 diabetes mellitus (HCC) ([facility]) BMI 50.0-59.9, adult ([facility]) URIEL (obstructive sleep apnea) Obstructive sleep apnea (adult) (pediatric) Primary hypertension ([facility]) Unspecified essential hypertension Chronic diastolic heart failure ([facility]) Chronic diastolic heart failure Depression, unspecified depression type ([facility]) Type 2 diabetes mellitus without complication, without long-term current use of insulin ([facility])- Primary Stage 3 chronic kidney disease due to type 2 diabetes mellitus (HCC) ([facility]) BMI 50.0-59.9, adult ([facility]) Lower extremity edema Edema Dental infection- Primary Type 2 diabetes mellitus with stage 3 chronic kidney disease, without long-term current use of insulin, unspecified whether stage 3a or 3b CKD (HCC) ([facility])- Primary Bipolar affective disorder, remission status unspecified ([facility]) Restless leg syndrome Restless legs syndrome (RLS) URIEL (obstructive sleep apnea) Obstructive sleep apnea (adult) (pediatric) Primary hypertension ([facility]) Unspecified essential hypertension Chronic diastolic heart failure ([facility]) Chronic diastolic heart failure Stage 3 chronic kidney disease due to type 2 diabetes mellitus ([facility]) ([facility]) Seasonal allergies Allergic rhinitis, cause unspecified BMI 50.0-59.9, adult ([facility]) Type 2 diabetes mellitus with stage 4 chronic kidney disease, without long-term current use of insulin ([facility])- Primary Type 2 diabetes mellitus without complication, without long-term current use of insulin ([facility]) Left lower quadrant abdominal pain- Primary Morbid (severe) obesity due to excess calories ([facility]) Body mass index (BMI) 45.0-49.9, adult ([facility]) Restless leg syndrome Restless legs syndrome (RLS) Stage 3b chronic kidney disease (HCC) ([facility]) Type 2 diabetes mellitus with other circulatory complications ([facility])- Primary Type 2 diabetes mellitus with stage 4 chronic kidney disease, without long-term current use of insulin ([facility] [place]) Type 2 diabetes mellitus with stage 3a chronic kidney disease, without long-term current use of insulin ([facility] [place]) ([facility] [place]) Class 3 severe obesity due to excess calories with serious comorbidity and body mass index (BMI) of45.0 to 49.9 in adult ([facility] [place]) Muscle spasm Spasm of muscle documented in this encounter [facility]* Diagnosis Primary hypertension ([facility] [place])- Primary Unspecified essential hypertension Gastroesophageal reflux disease, unspecified whether esophagitis present Microscopic hematuria Lower extremity edema Edema Type 2 diabetes mellitus without complication, without long-term current use of insulin ([facility] [place]) Stage 3 chronic kidney disease due to type 2 diabetes mellitus (HCC) ([facility] [place]) Mixed hyperlipidemia ([facility] [place]) Mixed hyperlipidemia Migraine without aura and without status migrainosus, not intractable ([facility] [place]) Encounter for screening mammogram for malignant neoplasm of breast Colon cancer screening Special screening for malignant neoplasms, colon BMI 50.0-59.9, adult ([facility] [place]) Heel pain, bilateral Type 2 diabetes mellitus without complication, without long-term current use of insulin ([facility] [place] Primary History of anuria Stage 3 chronic kidney disease due to type 2 diabetes mellitus (HCC) ([facility] [place]) BMI 50.0-59.9, adult ([facility] [place]) URIEL (obstructive sleep apnea) Obstructive sleep apnea (adult) (pediatric) Primary hypertension ([facility] [place]) Unspecified essential hypertension Chronic diastolic heart failure ([facility] [place]) Chronic diastolic heart failure Depression, unspecified depression type ([facility] [place]) Type 2 diabetes mellitus without complication, without long-term current use of insulin ([facility] [place])- Primary Stage 3 chronic kidney disease due to type 2 diabetes mellitus (HCC) ([facility] [place]) BMI 50.0-59.9, adult ([facility] [place]) Lower extremity edema Edema Dental infection- Primary Type 2 diabetes mellitus with stage 3 chronic kidney disease, without long-term current use of insulin, unspecified whether stage 3a or 3b CKD (HCC) ([facility] [place])- Primary Bipolar affective disorder, remission status unspecified ([facility] [place]) Restless leg syndrome Restless legs syndrome (RLS) URIEL (obstructive sleep apnea) Obstructive sleep apnea (adult) (pediatric) Primary hypertension ([facility] [place]) Unspecified essential hypertension Chronic diastolic heart failure ([facility] [place]) Chronic diastolic heart failure Stage 3 chronic kidney disease due to type 2 diabetes mellitus (HCC) ([facility] [place]) Seasonal allergies Allergic rhinitis, cause unspecified BMI 50.0-59.9, adult ([facility] [place]) Type 2 diabetes mellitus with stage 4 chronic kidney disease, without long-term current use of insulin ([facility] [place])- Primary Type 2 diabetes mellitus without complication, without long-term current use of insulin ([facility] [place]) Left lower quadrant abdominal pain- Primary Morbid (severe) obesity due to excess calories ([facility] [place]) Body mass index (BMI) 45.0-49.9, adult ([facility] [place]) Restless leg syndrome Restless legs syndrome (RLS) Stage 3b chronic kidney disease (HCC) ([facility] [place]) Type 2 diabetes mellitus with other circulatory complications ([facility] [place])- Primary Type 2 diabetes mellitus with stage 4 chronic kidney disease, without long-term current use of insulin ([facility] [place]) Type 2 diabetes mellitus with stage 3a chronic kidney disease, without long-term current use of insulin (HCC) ([facility] [place]) Class 3 severe obesity due to excess calories with serious comorbidity and body mass index (BMI) of45.0 to 49.9 in adult ([facility] [place]) Primary hypertension ([facility] [place])- Primary Unspecified essential hypertension Spinal stenosis of lumbar region at multiple levels Restless leg syndrome Restless legs syndrome (RLS) URIEL (obstructive sleep apnea) Obstructive sleep apnea (adult) (pediatric) Coronary arteriosclerosis ([facility] [place]) Coronary atherosclerosis of unspecified type of vessel, buckland or graft Stage 3b chronic kidney disease (HCC) ([facility] [place]) Swelling of both lower extremities Lower extremity edema Edema Type 2 diabetes mellitus with stage 3a chronic kidney disease, without long-term current use of insulin (HCC) ([facility] [place]) Class 3 severe obesity due to excess calories with serious comorbidity and body mass index (BMI) of45.0 to 49.9 in adult ([facility] [place]) Bipolar affective disorder, remission status unspecified ([facility] [place]) Generalized anxiety disorder ([facility] [place]) Generalized anxiety disorder Vitamin D deficiency Vitamin B12 deficiency Other B-complex deficiencies H/O bariatric surgery Acute non-recurrent pansinusitis documented in this encounter [facility]* Diagnosis Primary hypertension ([facility] [place])- Primary Unspecified essential hypertension Gastroesophageal reflux disease, unspecified whether esophagitis present Microscopic hematuria Lower extremity edema Edema Type 2 diabetes mellitus without complication, without long-term current use of insulin ([facility] [place] Stage 3 chronic kidney disease due to type 2 diabetes mellitus (HCC) ([facility] [place]) Mixed hyperlipidemia ([facility] [place]) Mixed hyperlipidemia Migraine without aura and without status migrainosus, not intractable ([facility] [place]) Encounter for screening mammogram for malignant neoplasm of breast Colon cancer screening Special screening for malignant neoplasms, colon BMI 50.0-59.9, adult ([facility] [place]) Heel pain, bilateral Type 2 diabetes mellitus without complication, without long-term current use of insulin ([facility] [place])- Primary History of anuria Stage 3 chronic kidney disease due to type 2 diabetes mellitus (HCC) ([facility] [place]) BMI 50.0-59.9, adult ([facility] [place]) URIEL (obstructive sleep apnea) Obstructive sleep apnea (adult) (pediatric) Primary hypertension ([facility] [place]) Unspecified essential hypertension Chronic diastolic heart failure ([facility] [place]) Chronic diastolic heart failure Depression, unspecified depression type ([facility] [place]) Type 2 diabetes mellitus without complication, without long-term current use of insulin ([facility] [place])- Primary Stage 3 chronic kidney disease due to type 2 diabetes mellitus (HCC) ([facility] [place]) BMI 50.0-59.9, adult ([facility] [place]) Lower extremity edema Edema Dental infection- Primary Type 2 diabetes mellitus with stage 3 chronic kidney disease, without long-term current use of insulin, unspecified whether stage 3a or 3b CKD (HCC) ([facility] [place])- Primary Bipolar affective disorder, remission status unspecified ([facility] [place]) Restless leg syndrome Restless legs syndrome (RLS) URIEL (obstructive sleep apnea) Obstructive sleep apnea (adult) (pediatric) Primary hypertension ([facility] [place]) Unspecified essential hypertension Chronic diastolic heart failure ([facility] [place]) Chronic diastolic heart failure Stage 3 chronic kidney disease due to type 2 diabetes mellitus (HCC) ([facility] [place]) Seasonal allergies Allergic rhinitis, cause unspecified BMI 50.0-59.9, adult ([facility] [place]) Type 2 diabetes mellitus with stage 4 chronic kidney disease, without long-term current use of insulin ([facility] [place])- Primary Type 2 diabetes mellitus without complication, without long-term current use of insulin ([facility] [place]) Left lower quadrant abdominal pain- Primary Morbid (severe) obesity due to excess calories ([facility] [place]) Body mass index (BMI) 45.0-49.9, adult ([facility] [place]) Restless leg syndrome Restless legs syndrome (RLS) Stage 3b chronic kidney disease (HCC) ([facility] [place]) Type 2 diabetes mellitus with other circulatory complications ([facility] [place])- Primary Type 2 diabetes mellitus with stage 4 chronic kidney disease, without long-term current use of insulin ([facility] [place]) Type 2 diabetes mellitus with stage 3a chronic kidney disease, without long-term current use of insulin (HCC) ([facility] [place]) Class 3 severe obesity due to excess calories with serious comorbidity and body mass index (BMI) of45.0 to 49.9 in adult ([facility] [place]) Primary hypertension ([facility] [place])- Primary Unspecified essential hypertension Spinal stenosis of lumbar region at multiple levels Restless leg syndrome Restless legs syndrome (RLS) URIEL (obstructive sleep apnea) Obstructive sleep apnea (adult) (pediatric) Coronary arteriosclerosis ([facility] [place]) Coronary atherosclerosis of unspecified type of vessel, buckland or graft Stage 3b chronic kidney disease (HCC) ([facility] [place]) Swelling of both lower extremities Lower extremity edema Edema Type 2 diabetes mellitus with stage 3a chronic kidney disease, without long-term current use of insulin ([facility] [place]) ([facility] [place]) Class 3 severe obesity due to excess calories with serious comorbidity and body mass index (BMI) of45.0 to 49.9 in adult ([facility] [place]) Bipolar affective disorder, remission status unspecified ([facility] [place]) Generalized anxiety disorder ([facility] [place]) Generalized anxiety disorder Vitamin D deficiency Vitamin B12 deficiency Other B-complex deficiencies H/O bariatric surgery Acute non-recurrent pansinusitis Restless leg syndrome Restless legs syndrome (RLS) documented in this encounter [facility]* Diagnosis Left lower quadrant abdominal pain- Primary Morbid (severe) obesity due to excess calories ([facility] [place]) Body mass index (BMI) 45.0-49.9, adult ([facility] [place]) Restless leg syndrome Restless legs syndrome (RLS) Stage 3b chronic kidney disease (HCC) ([facility] [place]) documented in this encounter [facility]* [...] disease, without long-term current use of insulin ([facility] [place])- Primary documented in this encounter [facility]* Diagnosis Primary hypertension ([facility] [place]) Unspecified essential hypertension documented in this encounter [facility]* Diagnosis Primary hypertension ([facility] [place] Primary Unspecified essential hypertension Gastroesophageal reflux disease, unspecified whether esophagitis present Microscopic hematuria Lower extremity edema Edema Type 2 diabetes mellitus without complication, without long-term current use of insulin ([facility] [place]) Stage 3 chronic kidney disease due to type 2 diabetes mellitus (HCC) ([facility] [place]) Mixed hyperlipidemia ([facility] [place]) Mixed hyperlipidemia Migraine without aura and without status migrainosus, not intractable ([facility] [place]) Encounter for screening mammogram for malignant neoplasm of breast Colon cancer screening Special screening for malignant neoplasms, colon BMI 50.0-59.9, adult ([facility] [place]) Heel pain, bilateral Type 2 diabetes mellitus without complication, without long-term current use of insulin ([facility] [place])- Primary History of anuria Stage 3 chronic kidney disease due to type 2 diabetes mellitus (HCC) ([facility] [place]) BMI 50.0-59.9, adult ([facility] [place]) URIEL (obstructive sleep apnea) Obstructive sleep apnea (adult) (pediatric) Primary hypertension ([facility] [place]) Unspecified essential hypertension Chronic diastolic heart failure ([facility] [place]) Chronic diastolic heart failure Depression, unspecified depression type ([facility] [place]) Type 2 diabetes mellitus without complication, without long-term current use of insulin ([facility] [place])- Primary Stage 3 chronic kidney disease due to type 2 diabetes mellitus (HCC) ([facility] [place]) BMI 50.0-59.9, adult ([facility] [place]) Lower extremity edema Edema Dental infection- Primary Type 2 diabetes mellitus with stage 3 chronic kidney disease, without long-term current use of insulin, unspecified whether stage 3a or 3b CKD ([facility] [place]) ([facility] [place])- Primary Bipolar affective disorder, remission status unspecified ([facility] [place]) Restless leg syndrome Restless legs syndrome (RLS) URIEL (obstructive sleep apnea) Obstructive sleep apnea (adult) (pediatric) Primary hypertension ([facility] [place]) Unspecified essential hypertension Chronic diastolic heart failure ([facility] [place]) Chronic diastolic heart failure Stage 3 chronic kidney disease due to type 2 diabetes mellitus ([facility] [place]) ([facility] [place]) Seasonal allergies Allergic rhinitis, cause unspecified BMI 50.0-59.9, adult ([facility] [place]) Type 2 diabetes mellitus with stage 4 chronic kidney disease, without long-term current use of insulin ([facility] [place])- Primary Type 2 diabetes mellitus without complication, without long-term current use of insulin ([facility] [place]) Left lower quadrant abdominal pain- Primary Morbid (severe) obesity due to excess calories ([facility] [place]) Body mass index (BMI) 45.0-49.9, adult ([facility] [place]) Restless leg syndrome Restless legs syndrome (RLS) Stage 3b chronic kidney disease (HCC) ([facility] [place]) Type 2 diabetes mellitus with other circulatory complications ([facility] [place])- Primary Type 2 diabetes mellitus with stage 4 chronic kidney disease, without long-term current use of insulin ([facility] [place]) Type 2 diabetes mellitus with stage 3a chronic kidney disease, without long-term current use of insulin ([facility] [place]) ([facility] [place]) Class 3 severe obesity due to excess calories with serious comorbidity and body mass index (BMI) of45.0 to 49.9 in adult ([facility] [place]) Primary hypertension ([facility] [place])- Primary Unspecified essential hypertension Spinal stenosis of lumbar region at multiple levels Restless leg syndrome Restless legs syndrome (RLS) URIEL (obstructive sleep apnea) Obstructive sleep apnea (adult) (pediatric) Coronary arteriosclerosis ([facility] [place]) Coronary atherosclerosis of unspecified type of vessel, buckland or graft Stage 3b chronic kidney disease (HCC) ([facility] [place]) Swelling of both lower extremities Lower extremity edema Edema Type 2 diabetes mellitus with stage 3a chronic kidney disease, without long-term current use of insulin ([facility] [place]) ([facility] [place]) Class 3 severe obesity due to excess calories with serious comorbidity and body mass index (BMI) of45.0 to 49.9 in adult ([facility] [place]) Bipolar affective disorder, remission status unspecified ([facility] [place]) Generalized anxiety disorder ([facility] [place]) Generalized anxiety disorder Vitamin D deficiency Vitamin B12 deficiency Other B-complex deficiencies H/O bariatric surgery Acute non-recurrent pansinusitis Muscle spasm Spasm of muscle documented in this encounter [facility]* Diagnosis Primary hypertension ([facility] [place])- Primary Unspecified essential hypertension Gastroesophageal reflux disease, unspecified whether esophagitis present Microscopic hematuria Lower extremity edema Edema Type 2 diabetes mellitus without complication, without long-term current use of insulin ([facility] [place]) Stage 3 chronic kidney disease due to type 2 diabetes mellitus (HCC) ([facility] [place]) Mixed hyperlipidemia ([facility] [place]) Mixed hyperlipidemia Migraine without aura and without status migrainosus, not intractable ([facility] [place]) Encounter for screening mammogram for malignant neoplasm of breast Colon cancer screening Special screening for malignant neoplasms, colon BMI 50.0-59.9, adult ([facility] [place]) Heel pain, bilateral Type 2 diabetes mellitus without complication, without long-term current use of insulin ([facility] [place] Primary History of anuria Stage 3 chronic kidney disease due to type 2 diabetes mellitus (HCC) ([facility] [place]) BMI 50.0-59.9, adult ([facility] [place]) URIEL (obstructive sleep apnea) Obstructive sleep apnea (adult) (pediatric) Primary hypertension ([facility] [place]) Unspecified essential hypertension Chronic diastolic heart failure ([facility] [place]) Chronic diastolic heart failure Depression, unspecified depression type ([facility] [place]) Type 2 diabetes mellitus without complication, without long-term current use of insulin ([facility] [place])- Primary Stage 3 chronic kidney disease due to type 2 diabetes mellitus ([facility] [place]) ([facility] [place]) BMI 50.0-59.9, adult ([facility] [place]) Lower extremity edema Edema Dental infection- Primary Type 2 diabetes mellitus with stage 3 chronic kidney disease, without long-term current use of insulin, unspecified whether stage 3a or 3b CKD ([facility] [place]) ([facility] [place] Primary Bipolar affective disorder, remission status unspecified ([facility] [place]) Restless leg syndrome Restless legs syndrome (RLS) URIEL (obstructive sleep apnea) Obstructive sleep apnea (adult) (pediatric) Primary hypertension ([facility] [place]) Unspecified essential hypertension Chronic diastolic heart failure ([facility] [place]) Chronic diastolic heart failure Stage 3 chronic kidney disease due to type 2 diabetes mellitus ([facility] [place]) ([facility] [place]) Seasonal allergies Allergic rhinitis, cause unspecified BMI 50.0-59.9, adult ([facility] [place]) Type 2 diabetes mellitus with stage 4 chronic kidney disease, without long-term current use of insulin ([facility] [place])- Primary Type 2 diabetes mellitus without complication, without long-term current use of insulin ([facility] [place]) Left lower quadrant abdominal pain- Primary Morbid (severe) obesity due to excess calories ([facility] [place]) Body mass index (BMI) 45.0-49.9, adult ([facility] [place]) Restless leg syndrome Restless legs syndrome (RLS) Stage 3b chronic kidney disease (HCC) ([facility] [place]) Type 2 diabetes mellitus with other circulatory complications ([facility] [place])- Primary Type 2 diabetes mellitus with stage 4 chronic kidney disease, without long-term current use of insulin ([facility] [place]) Type 2 diabetes mellitus with stage 3a chronic kidney disease, without long-term current use of insulin ([facility] [place]) ([facility] [place]) Class 3 severe obesity due to excess calories with serious comorbidity and body mass index (BMI) of45.0 to 49.9 in adult ([facility] [place]) Primary hypertension ([facility] [place] Primary Unspecified essential hypertension Spinal stenosis of lumbar region at multiple levels Restless leg syndrome Restless legs syndrome (RLS) URIEL (obstructive sleep apnea) Obstructive sleep apnea (adult) (pediatric) Coronary arteriosclerosis (CMS/HCC) Coronary atherosclerosis of unspecified type of vessel, buckland or graft Stage 3b chronic kidney disease (HCC) ([facility]/HCC) Swelling of both lower extremities Lower extremity edema Edema Type 2 diabetes mellitus with stage 3a chronic kidney disease, without long-term current use of insulin (HCC) ([facility] [place]) Class 3 severe obesity due to excess calories with serious comorbidity and body mass index (BMI) of45.0 to 49.9 in adult ([facility] [place]) Bipolar affective disorder, remission status unspecified ([facility] [place]) Generalized anxiety disorder ([facility] [place]) Generalized anxiety disorder Vitamin D deficiency Vitamin B12 deficiency Other B-complex deficiencies H/O bariatric surgery Acute non-recurrent pansinusitis Class 2 severe obesity due to excess calories with serious comorbidity and body mass index (BMI) of38.0 to 38.9 in adult ([facility] [place])- Primary Type 2 diabetes mellitus with other circulatory complications ([facility] [place]) Type 2 diabetes mellitus with stage 3a chronic kidney disease, without long-term current use of insulin (HCC) ([facility] [place]) documented in this encounter [facility] HealthcareEvaluation note* Diagnosis Primary hypertension ([facility] [place])- Primary Unspecified essential hypertension Gastroesophageal reflux disease, unspecified whether esophagitis present Microscopic hematuria Lower extremity edema Edema Type 2 diabetes mellitus without complication, without long-term current use of insulin Stage 3 chronic kidney disease due to type 2 diabetes mellitus (HCC) ([facility]/HCC) Mixed hyperlipidemia ([facility] [place]) Mixed hyperlipidemia Migraine without aura and without status migrainosus, not intractable ([facility] [place]) Encounter for screening mammogram for malignant neoplasm of breast Colon cancer screening Special screening for malignant neoplasms, colon BMI 50.0-59.9, adult ([facility] [place]) Heel pain, bilateral Type 2 diabetes mellitus without complication, without long-term current use of insulin- Primary History of anuria Stage 3 chronic kidney disease due to type 2 diabetes mellitus (HCC) ([facility] [place]) BMI 50.0-59.9, adult ([facility] [place]) URIEL (obstructive sleep apnea) Obstructive sleep apnea (adult) (pediatric) Primary hypertension ([facility]/HCC) Unspecified essential hypertension Chronic diastolic heart failure ([facility]/HCC) Chronic diastolic heart failure Depression, unspecified depression type ([facility] [place]) Type 2 diabetes mellitus without complication, without long-term current use of insulin- Primary Stage 3 chronic kidney disease due to type 2 diabetes mellitus (HCC) ([facility] [place]) BMI 50.0-59.9, adult ([facility] [place]) Lower extremity edema Edema Dental infection- Primary Type 2 diabetes mellitus with stage 3 chronic kidney disease, without long-term current use of insulin, unspecified whether stage 3a or 3b CKD (HCC) ([facility] [place])- Primary Bipolar affective disorder, remission status unspecified ([facility] [place]) Restless leg syndrome Restless legs syndrome (RLS) URIEL (obstructive sleep apnea) Obstructive sleep apnea (adult) (pediatric) Primary hypertension ([facility] [place]) Unspecified essential hypertension Chronic diastolic heart failure ([facility] [place]) Chronic diastolic heart failure Stage 3 chronic kidney disease due to type 2 diabetes mellitus ([facility] [place]) ([facility]) Seasonal allergies Allergic rhinitis, cause unspecified BMI 50.0-59.9, adult ([facility]) Type 2 diabetes mellitus with stage 4 chronic kidney disease, without long-term current use of insulin ([facility] [place])- Primary Type 2 diabetes mellitus without complication, without long-term current use of insulin Left lower quadrant abdominal pain- Primary Morbid (severe) obesity due to excess calories ([facility] [place]) Body mass index (BMI) 45.0-49.9, adult ([facility]) Restless leg syndrome Restless legs syndrome (RLS) Stage 3b chronic kidney disease (HCC) ([facility] [place]) Type 2 diabetes mellitus with other circulatory complications- Primary Type 2 diabetes mellitus with stage 4 chronic kidney disease, without long-term current use of insulin ([facility] [place]) Type 2 diabetes mellitus with stage 3a chronic kidney disease, without long-term current use of insulin ([facility] [place]) ([facility]) Class 3 severe obesity due to excess calories with serious comorbidity and body mass index (BMI) of45.0 to 49.9 in adult Primary hypertension ([facility] [place])- Primary Unspecified essential hypertension Spinal stenosis of lumbar region at multiple levels Restless leg syndrome Restless legs syndrome (RLS) URIEL (obstructive sleep apnea) Obstructive sleep apnea (adult) (pediatric) Coronary arteriosclerosis ([facility] [place]) Coronary atherosclerosis of unspecified type of vessel, buckland or graft Stage 3b chronic kidney disease (HCC) ([facility] [place]) Swelling of both lower extremities Lower extremity edema Edema Type 2 diabetes mellitus with stage 3a chronic kidney disease, without long-term current use of insulin (HCC) ([facility] [place]) Class 3 severe obesity due to excess calories with serious comorbidity and body mass index (BMI) of45.0 to 49.9 in adult Bipolar affective disorder, remission status unspecified ([facility] [place]) Generalized anxiety disorder ([facility] [place]) Generalized anxiety disorder Vitamin D deficiency Vitamin B12 deficiency Other B-complex deficiencies H/O bariatric surgery Acute non-recurrent pansinusitis Class 2 severe obesity due to excess calories with serious comorbidity and body mass index (BMI) of38.0 to 38.9 in adult ([facility] [place])- Primary Type 2 diabetes mellitus with other circulatory complications Type 2 diabetes mellitus with stage 3a chronic kidney disease, without long-term current use of insulin (HCC) ([facility] [place]) Acute foot pain, left- Primary Acute left ankle pain documented in this encounter [facility] HealthcareEvaluation note* Diagnosis Primary hypertension ([facility] [place])- Primary Unspecified essential hypertension Gastroesophageal reflux disease, unspecified whether esophagitis present Microscopic hematuria Lower extremity edema Edema Type 2 diabetes mellitus without complication, without long-term current use of insulin Stage 3 chronic kidney disease due to type 2 diabetes mellitus (HCC) ([facility] [place]) Mixed hyperlipidemia ([facility] [place]) Mixed hyperlipidemia Migraine without aura and without status migrainosus, not intractable ([facility] [place]) Encounter for screening mammogram for malignant neoplasm of breast Colon cancer screening Special screening for malignant neoplasms, colon BMI 50.0-59.9, adult ([facility] [place]) Heel pain, bilateral Type 2 diabetes mellitus without complication, without long-term current use of insulin- Primary History of anuria Stage 3 chronic kidney disease due to type 2 diabetes mellitus ([facility] [place]) ([facility] [place]) BMI 50.0-59.9, adult ([facility] [place]) URIEL (obstructive sleep apnea) Obstructive sleep apnea (adult) (pediatric) Primary hypertension ([facility] [place]) Unspecified essential hypertension Chronic diastolic heart failure ([facility] [place]) Chronic diastolic heart failure Depression, unspecified depression type ([facility] [place]) Type 2 diabetes mellitus without complication, without long-term current use of insulin- Primary Stage 3 chronic kidney disease due to type 2 diabetes mellitus (HCC) ([facility] [place]) BMI 50.0-59.9, adult ([facility] [place]) Lower extremity edema Edema Dental infection- Primary Type 2 diabetes mellitus with stage 3 chronic kidney disease, without long-term current use of insulin, unspecified whether stage 3a or 3b CKD (HCC) ([facility] [place])- Primary Bipolar affective disorder, remission status unspecified ([facility] [place]) Restless leg syndrome Restless legs syndrome (RLS) URIEL (obstructive sleep apnea) Obstructive sleep apnea (adult) (pediatric) Primary hypertension ([facility] [place]) Unspecified essential hypertension Chronic diastolic heart failure ([facility] [place]) Chronic diastolic heart failure Stage 3 chronic kidney disease due to type 2 diabetes mellitus (HCC) ([facility] [place]) Seasonal allergies Allergic rhinitis, cause unspecified BMI 50.0-59.9, adult ([facility] [place]) Type 2 diabetes mellitus with stage 4 chronic kidney disease, without long-term current use of insulin ([facility] [place])- Primary Type 2 diabetes mellitus without complication, without long-term current use of insulin Left lower quadrant abdominal pain- Primary Morbid (severe) obesity due to excess calories ([facility] [place]) Body mass index (BMI) 45.0-49.9, adult ([facility] [place]) Restless leg syndrome Restless legs syndrome (RLS) Stage 3b chronic kidney disease (HCC) ([facility] [place]) Type 2 diabetes mellitus with other circulatory complications- Primary Type 2 diabetes mellitus with stage 4 chronic kidney disease, without long-term current use of insulin ([facility] [place]) Type 2 diabetes mellitus with stage 3a chronic kidney disease, without long-term current use of insulin ([facility] [place]) ([facility] [place]) Class 3 severe obesity due to excess calories with serious comorbidity and body mass index (BMI) of45.0 to 49.9 in adult Primary hypertension ([facility] [place])- Primary Unspecified essential hypertension Spinal stenosis of lumbar region at multiple levels Restless leg syndrome Restless legs syndrome (RLS) URIEL (obstructive sleep apnea) Obstructive sleep apnea (adult) (pediatric) Coronary arteriosclerosis ([facility] [place]) Coronary atherosclerosis of unspecified type of vessel, buckland or graft Stage 3b chronic kidney disease (HCC) ([facility] [place]) Swelling of both lower extremities Lower extremity edema Edema Type 2 diabetes mellitus with stage 3a chronic kidney disease, without long-term current use of insulin (HCC) ([facility] [place]) Class 3 severe obesity due to excess calories with serious comorbidity and body mass index (BMI) of45.0 to 49.9 in adult Bipolar affective disorder, remission status unspecified ([facility] [place]) Generalized anxiety disorder ([facility] [place]) Generalized anxiety disorder Vitamin D deficiency Vitamin B12 deficiency Other B-complex deficiencies H/O bariatric surgery Acute non-recurrent pansinusitis Class 2 severe obesity due to excess calories with serious comorbidity and body mass index (BMI) of38.0 to 38.9 in adult ([facility] [place])- Primary Type 2 diabetes mellitus with other circulatory complications Type 2 diabetes mellitus with stage 3a chronic kidney disease, without long-term current use of insulin ([facility] [place]) ([facility] [place]) Restless leg syndrome Restless legs syndrome (RLS) documented in this encounter [facility] HealthcareEvaluation note* Diagnosis Primary hypertension ([facility] [place])- Primary Unspecified essential hypertension Gastroesophageal reflux disease, unspecified whether esophagitis present Microscopic hematuria Lower extremity edema Edema Type 2 diabetes mellitus without complication, without long-term current use of insulin Stage 3 chronic kidney disease due to type 2 diabetes mellitus (HCC) ([facility] [place]) Mixed hyperlipidemia ([facility] [place]) Mixed hyperlipidemia Migraine without aura and without status migrainosus, not intractable ([facility] [place]) Encounter for screening mammogram for malignant neoplasm of breast Colon cancer screening Special screening for malignant neoplasms, colon BMI 50.0-59.9, adult ([facility] [place]) Heel pain, bilateral Type 2 diabetes mellitus without complication, without long-term current use of insulin- Primary History of anuria Stage 3 chronic kidney disease due to type 2 diabetes mellitus ([facility] [place]) ([facility] [place]) BMI 50.0-59.9, adult ([facility] [place]) URIEL (obstructive sleep apnea) Obstructive sleep apnea (adult) (pediatric) Primary hypertension ([facility] [place]) Unspecified essential hypertension Chronic diastolic heart failure ([facility] [place]) Chronic diastolic heart failure Depression, unspecified depression type ([facility] [place]) Type 2 diabetes mellitus without complication, without long-term current use of insulin- Primary Stage 3 chronic kidney disease due to type 2 diabetes mellitus (HCC) ([facility] [place]) BMI 50.0-59.9, adult ([facility] [place]) Lower extremity edema Edema Dental infection- Primary Type 2 diabetes mellitus with stage 3 chronic kidney disease, without long-term current use of insulin, unspecified whether stage 3a or 3b CKD ([facility] [place]) ([facility] [place])- Primary Bipolar affective disorder, remission status unspecified ([facility] [place]) Restless leg syndrome Restless legs syndrome (RLS) URIEL (obstructive sleep apnea) Obstructive sleep apnea (adult) (pediatric) Primary hypertension ([facility] [place]) Unspecified essential hypertension Chronic diastolic heart failure ([facility] [place]) Chronic diastolic heart failure Stage 3 chronic kidney disease due to type 2 diabetes mellitus (HCC) ([facility] [place]) Seasonal allergies Allergic rhinitis, cause unspecified BMI 50.0-59.9, adult [facility] [place] Type 2 diabetes mellitus with stage 4 chronic kidney disease, without long-term current use of insulin ([facility] [place])- Primary Type 2 diabetes mellitus without complication, without long-term current use of insulin Left lower quadrant abdominal pain- Primary Morbid (severe) obesity due to excess calories ([facility] [place]) Body mass index (BMI) 45.0-49.9, adult ([facility] [place]) Restless leg syndrome Restless legs syndrome (RLS) Stage 3b chronic kidney disease (HCC) ([facility] [place]) Type 2 diabetes mellitus with other circulatory complications- Primary Type 2 diabetes mellitus with stage 4 chronic kidney disease, without long-term current use of insulin ([facility] [place]) Type 2 diabetes mellitus with stage 3a chronic kidney disease, without long-term current use of insulin (HCC) ([facility] [place]) Class 3 severe obesity due to excess calories with serious comorbidity and body mass index (BMI) of45.0 to 49.9 in adult Primary hypertension ([facility] [place])- Primary Unspecified essential hypertension Spinal stenosis of lumbar region at multiple levels Restless leg syndrome Restless legs syndrome (RLS) URIEL (obstructive sleep apnea) Obstructive sleep apnea (adult) (pediatric) Coronary arteriosclerosis ([facility] [place]) Coronary atherosclerosis of unspecified type of vessel, buckland or graft Stage 3b chronic kidney disease (HCC) ([facility] [place]) Swelling of both lower extremities Lower extremity edema Edema Type 2 diabetes mellitus with stage 3a chronic kidney disease, without long-term current use of insulin (HCC) ([facility] [place]) Class 3 severe obesity due to excess calories with serious comorbidity and body mass index (BMI) of45.0 to 49.9 in adult Bipolar affective disorder, remission status unspecified ([facility] [place]) Generalized anxiety disorder ([facility] [place]) Generalized anxiety disorder Vitamin D deficiency Vitamin B12 deficiency Other B-complex deficiencies H/O bariatric surgery Acute non-recurrent pansinusitis Class 2 severe obesity due to excess calories with serious comorbidity and body mass index (BMI) of38.0 to 38.9 in adult ([facility] [place])- Primary Type 2 diabetes mellitus with other circulatory complications Type 2 diabetes mellitus with stage 3a chronic kidney disease, without long-term current use of insulin (HCC) ([facility] [place]) Primary hypertension ([facility] [place]) Unspecified essential hypertension documented in this encounter [facility] HealthcareEvaluation note* Diagnosis Primary hypertension ([facility] [place] Primary Unspecified essential hypertension Gastroesophageal reflux disease, unspecified whether esophagitis present Microscopic hematuria Lower extremity edema Edema Type 2 diabetes mellitus without complication, without long-term current use of insulin Stage 3 chronic kidney disease due to type 2 diabetes mellitus (HCC) ([facility] [place]) Mixed hyperlipidemia ([facility]) Mixed hyperlipidemia Migraine without aura and without status migrainosus, not intractable ([facility]) Encounter for screening mammogram for malignant neoplasm of breast Colon cancer screening Special screening for malignant neoplasms, colon BMI 50.0-59.9, adult ([facility] [place]) Heel pain, bilateral Type 2 diabetes mellitus without complication, without long-term current use of insulin- Primary History of anuria Stage 3 chronic kidney disease due to type 2 diabetes mellitus (HCC) ([facility] [place]) BMI 50.0-59.9, adult ([facility] [place]) URIEL (obstructive sleep apnea) Obstructive sleep apnea (adult) (pediatric) Primary hypertension ([facility] [place]) Unspecified essential hypertension Chronic diastolic heart failure ([facility] [place]) Chronic diastolic heart failure Depression, unspecified depression type ([facility] [place]) Type 2 diabetes mellitus without complication, without long-term current use of insulin- Primary Stage 3 chronic kidney disease due to type 2 diabetes mellitus (HCC) ([facility] [place]) BMI 50.0-59.9, adult ([facility] [place]) Lower extremity edema Edema Dental infection- Primary Type 2 diabetes mellitus with stage 3 chronic kidney disease, without long-term current use of insulin, unspecified whether stage 3a or 3b CKD (HCC) ([facility] [place])- Primary Bipolar affective disorder, remission status unspecified ([facility] [place]) Restless leg syndrome Restless legs syndrome (RLS) URIEL (obstructive sleep apnea) Obstructive sleep apnea (adult) (pediatric) Primary hypertension ([facility] [place]) Unspecified essential hypertension Chronic diastolic heart failure ([facility] [place]) Chronic diastolic heart failure Stage 3 chronic kidney disease due to type 2 diabetes mellitus (HCC) ([facility] [place]) Seasonal allergies Allergic rhinitis, cause unspecified BMI 50.0-59.9, adult ([facility]) Type 2 diabetes mellitus with stage 4 chronic kidney disease, without long-term current use of insulin ([facility] [place])- Primary Type 2 diabetes mellitus without complication, without long-term current use of insulin Left lower quadrant abdominal pain- Primary Morbid (severe) obesity due to excess calories ([facility] [place]) Body mass index (BMI) 45.0-49.9, adult ([facility]) Restless leg syndrome Restless legs syndrome (RLS) Stage 3b chronic kidney disease (HCC) ([facility] [place]) Type 2 diabetes mellitus with other circulatory complications- Primary Type 2 diabetes mellitus with stage 4 chronic kidney disease, without long-term current use of insulin ([facility] [place]) Type 2 diabetes mellitus with stage 3a chronic kidney disease, without long-term current use of insulin (HCC) ([facility] [place]) Class 3 severe obesity due to excess calories with serious comorbidity and body mass index (BMI) of45.0 to 49.9 in adult Primary hypertension ([facility] [place])- Primary Unspecified essential hypertension Spinal stenosis of lumbar region at multiple levels Restless leg syndrome Restless legs syndrome (RLS) URIEL (obstructive sleep apnea) Obstructive sleep apnea (adult) (pediatric) Coronary arteriosclerosis ([facility] [place]) Coronary atherosclerosis of unspecified type of vessel, buckland or graft Stage 3b chronic kidney disease (HCC) ([facility] [place] Swelling of both lower extremities Lower extremity edema Edema Type 2 diabetes mellitus with stage 3a chronic kidney disease, without long-term current use of insulin (HCC) ([facility] [place]) Class 3 severe obesity due to excess calories with serious comorbidity and body mass index (BMI) of45.0 to 49.9 in adult Bipolar affective disorder, remission status unspecified ([facility] [place]) Generalized anxiety disorder ([facility] [place]) Generalized anxiety disorder Vitamin D deficiency Vitamin B12 deficiency Other B-complex deficiencies H/O bariatric surgery Acute non-recurrent pansinusitis Class 2 severe obesity due to excess calories with serious comorbidity and body mass index (BMI) of38.0 to 38.9 in adult ([facility] [place] Primary Type 2 diabetes mellitus with other circulatory complications Type 2 diabetes mellitus with stage 3a chronic kidney disease, without long-term current use of insulin (HCC) ([facility] [place]) Muscle spasm Spasm of muscle documented in this encounter [facility]* Diagnosis Primary hypertension ([facility] [place] Primary Unspecified essential hypertension Gastroesophageal reflux disease, unspecified whether esophagitis present Microscopic hematuria Lower extremity edema Edema Type 2 diabetes mellitus without complication, without long-term current use of insulin Stage 3 chronic kidney disease due to type 2 diabetes mellitus (HCC) ([facility] [place]) Mixed hyperlipidemia ([facility] [place]) Mixed hyperlipidemia Migraine without aura and without status migrainosus, not intractable ([facility] [place]) Encounter for screening mammogram for malignant neoplasm of breast Colon cancer screening Special screening for malignant neoplasms, colon BMI 50.0-59.9, adult ([facility] [place]) Heel pain, bilateral Type 2 diabetes mellitus without complication, without long-term current use of insulin- Primary History of anuria Stage 3 chronic kidney disease due to type 2 diabetes mellitus (HCC) ([facility] [place]) BMI 50.0-59.9, adult ([facility] [place]) URIEL (obstructive sleep apnea) Obstructive sleep apnea (adult) (pediatric) Primary hypertension ([facility] [place]) Unspecified essential hypertension Chronic diastolic heart failure ([facility] [place]) Chronic diastolic heart failure Depression, unspecified depression type ([facility] [place]) Type 2 diabetes mellitus without complication, without long-term current use of insulin- Primary Stage 3 chronic kidney disease due to type 2 diabetes mellitus (HCC) ([facility] [place]) BMI 50.0-59.9, adult ([facility] [place]) Lower extremity edema Edema Type 2 diabetes mellitus with stage 3 chronic kidney disease, without long-term current use of insulin, unspecified whether stage 3a or 3b CKD (HCC) ([facility] [place])- Primary Bipolar affective disorder, remission status unspecified ([facility] [place]) Restless leg syndrome Restless legs syndrome (RLS) URIEL (obstructive sleep apnea) Obstructive sleep apnea (adult) (pediatric) Primary hypertension ([facility] [place]) Unspecified essential hypertension Chronic diastolic heart failure ([facility] [place]) Chronic diastolic heart failure Stage 3 chronic kidney disease due to type 2 diabetes mellitus (HCC) ([facility] [place]) Seasonal allergies Allergic rhinitis, cause unspecified BMI 50.0-59.9, adult ([facility] [place]) Type 2 diabetes mellitus with stage 4 chronic kidney disease, without long-term current use of insulin ([facility] [place] Primary Type 2 diabetes mellitus without complication, without long-term current use of insulin Left lower quadrant abdominal pain- Primary Morbid (severe) obesity due to excess calories ([facility] [place]) Body mass index (BMI) 45.0-49.9, adult ([facility] [place]) Restless leg syndrome Restless legs syndrome (RLS) Stage 3b chronic kidney disease (HCC) ([facility] [place]) Type 2 diabetes mellitus with other circulatory complications- Primary Type 2 diabetes mellitus with stage 4 chronic kidney disease, without long-term current use of insulin ([facility] [place]) Type 2 diabetes mellitus with stage 3a chronic kidney disease, without long-term current use of insulin (HCC) ([facility] [place]) Class 3 severe obesity due to excess calories with serious comorbidity and body mass index (BMI) of45.0 to 49.9 in adult Primary hypertension ([facility])- Primary Unspecified essential hypertension Spinal stenosis of lumbar region at multiple levels Restless leg syndrome Restless legs syndrome (RLS) URIEL (obstructive sleep apnea) Obstructive sleep apnea (adult) (pediatric) Coronary arteriosclerosis ([facility] [place]) Coronary atherosclerosis of unspecified type of vessel, buckland or graft Stage 3b chronic kidney disease (HCC) ([facility] [place]) Swelling of both lower extremities Lower extremity edema Edema Type 2 diabetes mellitus with stage 3a chronic kidney disease, without long-term current use of insulin (HCC) ([facility] [place]) Class 3 severe obesity due to excess calories with serious comorbidity and body mass index (BMI) of45.0 to 49.9 in adult Bipolar affective disorder, remission status unspecified ([facility] [place]) Generalized anxiety disorder ([facility] [place]) Generalized anxiety disorder Vitamin D deficiency Vitamin B12 deficiency Other B-complex deficiencies H/O bariatric surgery Acute non-recurrent pansinusitis Class 2 severe obesity due to excess calories with serious comorbidity and body mass index (BMI) of38.0 to 38.9 in adult ([facility] [place])- Primary Type 2 diabetes mellitus with other circulatory complications Type 2 diabetes mellitus with stage 3a chronic kidney disease, without long-term current use of insulin (HCC) ([facility] [place]) Encounter for wellness examination in adult- Primary Encounter for screening mammogram for malignant neoplasm of breast Primary hypertension ([facility] [place]) Unspecified essential hypertension Chronic diastolic heart failure ([facility] [place]) Chronic diastolic heart failure Stage 3b chronic kidney disease (HCC) ([facility] [place]) Class 2 severe obesity due to excess calories with serious comorbidity and body mass index (BMI) of38.0 to 38.9 in adult ([facility] [place]) Type 2 diabetes mellitus with stage 3a chronic kidney disease, without long-term current use of insulin (HCC) ([facility] [place]) Mixed hyperlipidemia ([facility] [place]) Mixed hyperlipidemia documented in this encounter [facility]* Diagnosis Primary hypertension ([facility] [place])- Primary Unspecified essential hypertension Gastroesophageal reflux disease, unspecified whether esophagitis present Microscopic hematuria Lower extremity edema Edema Type 2 diabetes mellitus without complication, without long-term current use of insulin Stage 3 chronic kidney disease due to type 2 diabetes mellitus (HCC) ([facility] [place]) Mixed hyperlipidemia ([facility] [place]) Mixed hyperlipidemia Migraine without aura and without status migrainosus, not intractable ([facility] [place]) Encounter for screening mammogram for malignant neoplasm of breast Colon cancer screening Special screening for malignant neoplasms, colon BMI 50.0-59.9, adult ([facility] [place]) Heel pain, bilateral Type 2 diabetes mellitus without complication, without long-term current use of insulin- Primary History of anuria Stage 3 chronic kidney disease due to type 2 diabetes mellitus (HCC) ([facility] [place]) BMI 50.0-59.9, adult ([facility] [place]) URIEL (obstructive sleep apnea) Obstructive sleep apnea (adult) (pediatric) Primary hypertension ([facility] [place]) Unspecified essential hypertension Chronic diastolic heart failure ([facility] [place]) Chronic diastolic heart failure Depression, unspecified depression type ([facility] [place]) Type 2 diabetes mellitus without complication, without long-term current use of insulin- Primary Stage 3 chronic kidney disease due to type 2 diabetes mellitus (HCC) ([facility] [place]) BMI 50.0-59.9, adult ([facility] [place]) Lower extremity edema Edema Type 2 diabetes mellitus with stage 3 chronic kidney disease, without long-term current use of insulin, unspecified whether stage 3a or 3b CKD (HCC) ([facility] [place])- Primary Bipolar affective disorder, remission status unspecified ([facility] [place]) Restless leg syndrome Restless legs syndrome (RLS) URIEL (obstructive sleep apnea) Obstructive sleep apnea (adult) (pediatric) Primary hypertension ([facility] [place]) Unspecified essential hypertension Chronic diastolic heart failure ([facility] [place]) Chronic diastolic heart failure Stage 3 chronic kidney disease due to type 2 diabetes mellitus ([facility] [place]) ([facility] [place]) Seasonal allergies Allergic rhinitis, cause unspecified BMI 50.0-59.9, adult ([facility] [place]) Type 2 diabetes mellitus with stage 4 chronic kidney disease, without long-term current use of insulin ([facility] [place])- Primary Type 2 diabetes mellitus without complication, without long-term current use of insulin Left lower quadrant abdominal pain- Primary Morbid (severe) obesity due to excess calories ([facility] [place]) Body mass index (BMI) 45.0-49.9, adult ([facility] [place]) Restless leg syndrome Restless legs syndrome (RLS) Stage 3b chronic kidney disease (HCC) ([facility] [place]) Type 2 diabetes mellitus with other circulatory complications- Primary Type 2 diabetes mellitus with stage 4 chronic kidney disease, without long-term current use of insulin ([facility] [place]) Type 2 diabetes mellitus with stage 3a chronic kidney disease, without long-term current use of insulin (HCC) ([facility] [place]) Class 3 severe obesity due to excess calories with serious comorbidity and body mass index (BMI) of45.0 to 49.9 in adult Primary hypertension ([facility] [place])- Primary Unspecified essential hypertension Spinal stenosis of lumbar region at multiple levels Restless leg syndrome Restless legs syndrome (RLS) URIEL (obstructive sleep apnea) Obstructive sleep apnea (adult) (pediatric) Coronary arteriosclerosis ([facility] [place]) Coronary atherosclerosis of unspecified type of vessel, buckland or graft Stage 3b chronic kidney disease (HCC) ([facility] [place]) Swelling of both lower extremities Lower extremity edema Edema Type 2 diabetes mellitus with stage 3a chronic kidney disease, without long-term current use of insulin (HCC) ([facility] [place]) Class 3 severe obesity due to excess calories with serious comorbidity and body mass index (BMI) of45.0 to 49.9 in adult Bipolar affective disorder, remission status unspecified ([facility] [place]) Generalized anxiety disorder ([facility] [place]) Generalized anxiety disorder Vitamin D deficiency Vitamin B12 deficiency Other B-complex deficiencies H/O bariatric surgery Acute non-recurrent pansinusitis Class 2 severe obesity due to excess calories with serious comorbidity and body mass index (BMI) of38.0 to 38.9 in adult ([facility] [place])- Primary Type 2 diabetes mellitus with other circulatory complications Type 2 diabetes mellitus with stage 3a chronic kidney disease, without long-term current use of insulin ([facility] [place]) ([facility] [place]) Encounter for wellness examination in adult- Primary Encounter for screening mammogram for malignant neoplasm of breast Primary hypertension ([facility] [place]) Unspecified essential hypertension Chronic diastolic heart failure ([facility] [place]) Chronic diastolic heart failure Stage 3b chronic kidney disease (HCC) ([facility] [place]) Class 2 severe obesity due to excess calories with serious comorbidity and body mass index (BMI) of38.0 to 38.9 in adult ([facility] [place]) Type 2 diabetes mellitus with stage 3a chronic kidney disease, without long-term current use of insulin (HCC) ([facility] [place]) Mixed hyperlipidemia ([facility] [place] Mixed hyperlipidemia Restless leg syndrome Restless legs syndrome (RLS) documented in this encounter [facility]* Diagnosis Primary hypertension- Primary Unspecified essential hypertension Gastroesophageal reflux disease, unspecified whether esophagitis present Microscopic hematuria Lower extremity edema Edema Type 2 diabetes mellitus without complication, without long-term current use of insulin ([facility] [place]) Stage 3 chronic kidney disease due to type 2 diabetes mellitus ([facility] [place]) Mixed hyperlipidemia Mixed hyperlipidemia Migraine without aura and without status migrainosus, not intractable Encounter for screening mammogram for malignant neoplasm of breast Colon cancer screening Special screening for malignant neoplasms, colon BMI 50.0-59.9, adult ([facility]) Heel pain, bilateral Type 2 diabetes mellitus without complication, without long-term current use of insulin ([facility] [place])- Primary History of anuria Stage 3 chronic kidney disease due to type 2 diabetes mellitus ([facility] [place]) BMI 50.0-59.9, adult ([facility]) URIEL (obstructive sleep apnea) Obstructive sleep apnea (adult) (pediatric) Primary hypertension Unspecified essential hypertension Chronic diastolic heart failure ([facility] [place]) Chronic diastolic heart failure Depression, unspecified depression type Type 2 diabetes mellitus without complication, without long-term current use of insulin ([facility] [place])- Primary Stage 3 chronic kidney disease due to type 2 diabetes mellitus ([facility] [place]) BMI 50.0-59.9, adult ([facility]) Lower extremity edema Edema Type 2 diabetes mellitus with stage 3 chronic kidney disease, without long-term current use of insulin, unspecified whether stage 3a or 3b CKD ([facility] [place])- Primary Bipolar affective disorder, remission status unspecified ([facility] [place]) Restless leg syndrome Restless legs syndrome (RLS) URIEL (obstructive sleep apnea) Obstructive sleep apnea (adult) (pediatric) Primary hypertension Unspecified essential hypertension Chronic diastolic heart failure (HCC) Chronic diastolic heart failure Stage 3 chronic kidney disease due to type 2 diabetes mellitus ([facility] [place]) Seasonal allergies Allergic rhinitis, cause unspecified BMI 50.0-59.9, adult ([facility]) Type 2 diabetes mellitus with stage 4 chronic kidney disease, without long-term current use of insulin ([facility] [place] Primary Type 2 diabetes mellitus without complication, without long-term current use of insulin ([facility] [place]) Left lower quadrant abdominal pain- Primary Morbid (severe) obesity due to excess calories ([facility]) Body mass index (BMI) 45.0-49.9, adult ([facility]) Restless leg syndrome Restless legs syndrome (RLS) Stage 3b chronic kidney disease ([facility]) Type 2 diabetes mellitus with other circulatory complications ([facility] [place])- Primary Type 2 diabetes mellitus with stage 4 chronic kidney disease, without long-term current use of insulin ([facility] [place]) Type 2 diabetes mellitus with stage 3a chronic kidney disease, without long-term current use of insulin ([facility] [place]) Class 3 severe obesity due to excess calories with serious comorbidity and body mass index (BMI) of45.0 to 49.9 in adult ([facility]) Primary hypertension- Primary Unspecified essential hypertension Spinal stenosis of lumbar region at multiple levels Restless leg syndrome Restless legs syndrome (RLS) URIEL (obstructive sleep apnea) Obstructive sleep apnea (adult) (pediatric) Coronary arteriosclerosis Coronary atherosclerosis of unspecified type of vessel, buckland or graft Stage 3b chronic kidney disease ([facility]) Swelling of both lower extremities Lower extremity edema Edema Type 2 diabetes mellitus with stage 3a chronic kidney disease, without long-term current use of insulin ([facility] [place]) Class 3 severe obesity due to excess calories with serious comorbidity and body mass index (BMI) of45.0 to 49.9 in adult ([facility]) Bipolar affective disorder, remission status unspecified ([facility] [place]) Generalized anxiety disorder Generalized anxiety disorder Vitamin D deficiency Vitamin B12 deficiency Other B-complex deficiencies H/O bariatric surgery Acute non-recurrent pansinusitis Class 2 severe obesity due to excess calories with serious comorbidity and body mass index (BMI) of38.0 to 38.9 in adult ([facility] Primary Type 2 diabetes mellitus with other circulatory complications (HCC) Type 2 diabetes mellitus with stage 3a chronic kidney disease, without long-term current use of insulin ([facility] [place]) Encounter for wellness examination in adult- Primary Encounter for screening mammogram for malignant neoplasm of breast Primary hypertension Unspecified essential hypertension Chronic diastolic heart failure (HCC) Chronic diastolic heart failure Stage 3b chronic kidney disease ([facility]) Class 2 severe obesity due to excess calories with serious comorbidity and body mass index (BMI) of38.0 to 38.9 in adult ([facility]) Type 2 diabetes mellitus with stage 3a [...] complication, without long-term current use of insulin ([facility] [place]) Class 2 severe obesity due to excess calories with serious comorbidity and body mass index (BMI) of36.0 to 36.9 in adult ([facility]) documented in this encounter [facility]* Diagnosis Primary hypertension- Primary Unspecified essential hypertension Gastroesophageal reflux disease, unspecified whether esophagitis present Microscopic hematuria Lower extremity edema Edema Type 2 diabetes mellitus without complication, without long-term current use of insulin ([facility] [place]) Stage 3 chronic kidney disease due to type 2 diabetes mellitus ([facility] [place]) Mixed hyperlipidemia Mixed hyperlipidemia Migraine without aura and without status migrainosus, not intractable Encounter for screening mammogram for malignant neoplasm of breast Colon cancer screening Special screening for malignant neoplasms, colon BMI 50.0-59.9, adult ([facility]) Heel pain, bilateral Type 2 diabetes mellitus without complication, without long-term current use of insulin ([facility] [place])- Primary History of anuria Stage 3 chronic kidney disease due to type 2 diabetes mellitus ([facility] [place]) BMI 50.0-59.9, adult ([facility] URIEL (obstructive sleep apnea) Obstructive sleep apnea (adult) (pediatric) Primary hypertension Unspecified essential hypertension Chronic diastolic heart failure ([facility] [place]) Chronic diastolic heart failure Depression, unspecified depression type Type 2 diabetes mellitus without complication, without long-term current use of insulin ([facility] [place])- Primary Stage 3 chronic kidney disease due to type 2 diabetes mellitus ([facility] [place]) BMI 50.0-59.9, adult ([facility] Lower extremity edema Edema Type 2 diabetes mellitus with stage 3 chronic kidney disease, without long-term current use of insulin, unspecified whether stage 3a or 3b CKD ([facility] [place])- Primary Bipolar affective disorder, remission status unspecified ([facility] [place]) Restless leg syndrome Restless legs syndrome (RLS) URIEL (obstructive sleep apnea) Obstructive sleep apnea (adult) (pediatric) Primary hypertension Unspecified essential hypertension Chronic diastolic heart failure ([facility] [place]) Chronic diastolic heart failure Stage 3 chronic kidney disease due to type 2 diabetes mellitus ([facility] [place]) Seasonal allergies Allergic rhinitis, cause unspecified BMI 50.0-59.9, adult ([facility] Type 2 diabetes mellitus with stage 4 chronic kidney disease, without long-term current use of insulin ([facility] [place] Primary Type 2 diabetes mellitus without complication, without long-term current use of insulin ([facility] [place]) Left lower quadrant abdominal pain- Primary Morbid (severe) obesity due to excess calories ([facility]) Body mass index (BMI) 45.0-49.9, adult ([facility] Restless leg syndrome Restless legs syndrome (RLS) Stage 3b chronic kidney disease ([facility]) Type 2 diabetes mellitus with other circulatory complications ([facility] [place])- Primary Type 2 diabetes mellitus with stage 4 chronic kidney disease, without long-term current use of insulin ([facility] [place]) Type 2 diabetes mellitus with stage 3a chronic kidney disease, without long-term current use of insulin ([facility] [place]) Class 3 severe obesity due to excess calories with serious comorbidity and body mass index (BMI) of45.0 to 49.9 in adult ([facility] Primary hypertension- Primary Unspecified essential hypertension Spinal stenosis of lumbar region at multiple levels Restless leg syndrome Restless legs syndrome (RLS) URIEL (obstructive sleep apnea) Obstructive sleep apnea (adult) (pediatric) Coronary arteriosclerosis Coronary atherosclerosis of unspecified type of vessel, buckland or graft Stage 3b chronic kidney disease ([facility]) Swelling of both lower extremities Lower extremity edema Edema Type 2 diabetes mellitus with stage 3a chronic kidney disease, without long-term current use of insulin ([facility]) Class 3 severe obesity due to excess calories with serious comorbidity and body mass index (BMI) of45.0 to 49.9 in adult ([facility]) Bipolar affective disorder, remission status unspecified ([facility]) Generalized anxiety disorder Generalized anxiety disorder Vitamin D deficiency Vitamin B12 deficiency Other B-complex deficiencies H/O bariatric surgery Acute non-recurrent pansinusitis Class 2 severe obesity due to excess calories with serious comorbidity and body mass index (BMI) of38.0 to 38.9 in adult ([facility] Primary Type 2 diabetes mellitus with other circulatory complications ([facility]) Type 2 diabetes mellitus with stage 3a chronic kidney disease, without long-term current use of insulin ([facility]) Encounter for wellness examination in adult- Primary Encounter for screening mammogram for malignant neoplasm of breast Primary hypertension Unspecified essential hypertension Chronic diastolic heart failure (HCC) Chronic diastolic heart failure Stage 3b chronic kidney disease ([facility]) Class 2 severe obesity due to excess calories with serious comorbidity and body mass index (BMI) of38.0 to 38.9 in adult ([facility]) Type 2 diabetes mellitus with stage 3a chronic kidney disease, without long-term current use of insulin ([facility]) Mixed hyperlipidemia Mixed hyperlipidemia Type 2 diabetes mellitus with other circulatory complications ([facility])- Primary Type 2 diabetes mellitus with stage 3a chronic kidney disease, without long-term current use of insulin ([facility]) Type 2 diabetes mellitus with stage 4 chronic kidney disease, without long-term current use of insulin ([facility]) Type 2 diabetes mellitus without complication, without long-term current use of insulin ([facility]) Class 2 severe obesity due to excess calories with serious comorbidity and body mass index (BMI) of36.0 to 36.9 in adult ([facility] Muscle spasm Spasm of muscle documented in this encounter [facility]* Diagnosis Primary hypertension- Primary Unspecified essential hypertension Gastroesophageal reflux disease, unspecified whether esophagitis present Microscopic hematuria Lower extremity edema Edema Type 2 diabetes mellitus without complication, without long-term current use of insulin ([facility]) Stage 3 chronic kidney disease due to type 2 diabetes mellitus ([facility]) Mixed hyperlipidemia Mixed hyperlipidemia Migraine without aura and without status migrainosus, not intractable Encounter for screening mammogram for malignant neoplasm of breast Colon cancer screening Special screening for malignant neoplasms, colon BMI 50.0-59.9, adult ([facility] Heel pain, bilateral Type 2 diabetes mellitus without complication, without long-term current use of insulin ([facility])- Primary History of anuria Stage 3 chronic kidney disease due to type 2 diabetes mellitus ([facility]) BMI 50.0-59.9, adult ([facility]) URIEL (obstructive sleep apnea) Obstructive sleep apnea (adult) (pediatric) Primary hypertension Unspecified essential hypertension Chronic diastolic heart failure ([facility]) Chronic diastolic heart failure Depression, unspecified depression type Type 2 diabetes mellitus without complication, without long-term current use of insulin ([facility])- Primary Stage 3 chronic kidney disease due to type 2 diabetes mellitus ([facility]) BMI 50.0-59.9, adult ([facility]) Lower extremity edema Edema Type 2 diabetes mellitus with stage 3 chronic kidney disease, without long-term current use of insulin, unspecified whether stage 3a or 3b CKD ([facility])- Primary Bipolar affective disorder, remission status unspecified ([facility]) Restless leg syndrome Restless legs syndrome (RLS) URIEL (obstructive sleep apnea) Obstructive sleep apnea (adult) (pediatric) Primary hypertension Unspecified essential hypertension Chronic diastolic heart failure (HCC) Chronic diastolic heart failure Stage 3 chronic kidney disease due to type 2 diabetes mellitus ([facility]) Seasonal allergies Allergic rhinitis, cause unspecified BMI 50.0-59.9, adult ([facility]) Type 2 diabetes mellitus with stage 4 chronic kidney disease, without long-term current use of insulin ([facility])- Primary Type 2 diabetes mellitus without complication, without long-term current use of insulin ([facility]) Left lower quadrant abdominal pain- Primary Morbid (severe) obesity due to excess calories ([facility]) Body mass index (BMI) 45.0-49.9, adult ([facility]) Restless leg syndrome Restless legs syndrome (RLS) Stage 3b chronic kidney disease ([facility]) Type 2 diabetes mellitus with other circulatory complications ([facility])- Primary Type 2 diabetes mellitus with stage 4 chronic kidney disease, without long-term current use of insulin ([facility]) Type 2 diabetes mellitus with stage 3a chronic kidney disease, without long-term current use of insulin ([facility]) Class 3 severe obesity due to excess calories with serious comorbidity and body mass index (BMI) of45.0 to 49.9 in adult ([facility]) Primary hypertension- Primary Unspecified essential hypertension Spinal stenosis of lumbar region at multiple levels Restless leg syndrome Restless legs syndrome (RLS) URIEL (obstructive sleep apnea) Obstructive sleep apnea (adult) (pediatric) Coronary arteriosclerosis Coronary atherosclerosis of unspecified type of vessel, buckland or graft Stage 3b chronic kidney disease ([facility]) Swelling of both lower extremities Lower extremity edema Edema Type 2 diabetes mellitus with stage 3a chronic kidney disease, without long-term current use of insulin ([facility]) Class 3 severe obesity due to excess calories with serious comorbidity and body mass index (BMI) of45.0 to 49.9 in adult ([facility]) Bipolar affective disorder, remission status unspecified ([facility]) Generalized anxiety disorder Generalized anxiety disorder Vitamin D deficiency Vitamin B12 deficiency Other B-complex deficiencies H/O bariatric surgery Acute non-recurrent pansinusitis Class 2 severe obesity due to excess calories with serious comorbidity and body mass index (BMI) of38.0 to 38.9 in adult ([facility] Primary Type 2 diabetes mellitus with other circulatory complications ([facility]) Type 2 diabetes mellitus with stage 3a chronic kidney disease, without long-term current use of insulin ([facility]) Encounter for wellness examination in adult- Primary Encounter for screening mammogram for malignant neoplasm of breast Primary hypertension Unspecified essential hypertension Chronic diastolic heart failure ([facility]) Chronic diastolic heart failure Stage 3b chronic kidney disease ([facility]) Class 2 severe obesity due to excess calories with serious comorbidity and body mass index (BMI) of38.0 to 38.9 in adult ([facility]) Type 2 diabetes mellitus with stage 3a chronic kidney disease, without long-term current use of insulin ([facility]) Mixed hyperlipidemia Mixed hyperlipidemia Type 2 diabetes mellitus with other circulatory complications ([facility])- Primary Type 2 diabetes mellitus with stage 3a chronic kidney disease, without long-term current use of insulin ([facility]) Type 2 diabetes mellitus with stage 4 chronic kidney disease, without long-term current use of insulin (HCC) Type 2 diabetes mellitus without complication, without long-term current use of insulin ([facility]) Class 2 severe obesity due to excess calories with serious comorbidity and body mass index (BMI) of36.0 to 36.9 in adult ([facility] Restless leg syndrome Restless legs syndrome (RLS) documented in this encounter [facility] Healthcare[facility] note* Diagnosis Onset Date Resolution Status Admit Date Diabetic nephropathy associated with typ e 2 diabetes mellitus acuteAugust 2024 9:38amHyperkalemiaacuteAugust 2024 9:38am HyperuricemiaacuteAugust 2024 9:38amHypomagnesemiaacuteAugust 2024 9:38amIron deficiencyacuteAugust 2024 9:38amLocalized edemaacuteAugust 2024 9:38amMorbid obesityacuteAugust 2024 9:38amStage 3b chronic kidney diseaseacuteAugust 2024 9:38amVitamin B12 deficiencyacuteAugust 2024 9:38amVitamin D deficiencyacuteAugust 2024 9:38amHypertensive nephropathyresolvedAugust 2024 9:38am [facility] Work Phone: Evaluation note* Diagnosis Primary hypertension- Primary Unspecified essential hypertension Gastroesophageal reflux disease, unspecified whether esophagitis present Microscopic hematuria Lower extremity edema Edema Type 2 diabetes mellitus without complication, without long-term current use of insulin (HCC) Stage 3 chronic kidney disease due to type 2 diabetes mellitus ([facility]) Mixed hyperlipidemia Mixed hyperlipidemia Migraine without aura and without status migrainosus, not intractable Encounter for screening mammogram for malignant neoplasm of breast Colon cancer screening Special screening for malignant neoplasms, colon BMI 50.0-59.9, adult ([facility] Heel pain, bilateral Type 2 diabetes mellitus without complication, without long-term current use of insulin (HCC)- Primary History of anuria Stage 3 chronic kidney disease due to type 2 diabetes mellitus ([facility]) BMI 50.0-59.9, adult ([facility]) URIEL (obstructive sleep apnea) Obstructive sleep apnea (adult) (pediatric) Primary hypertension Unspecified essential hypertension Chronic diastolic heart failure (HCC) Chronic diastolic heart failure Depression, unspecified depression type Type 2 diabetes mellitus without complication, without long-term current use of insulin ([facility])- Primary Stage 3 chronic kidney disease due to type 2 diabetes mellitus ([facility]) BMI 50.0-59.9, adult ([facility] Lower extremity edema Edema Type 2 diabetes mellitus with stage 3 chronic kidney disease, without long-term current use of insulin, unspecified whether stage 3a or 3b CKD ([facility])- Primary Bipolar affective disorder, remission status unspecified ([facility]) Restless leg syndrome Restless legs syndrome (RLS) URIEL (obstructive sleep apnea) Obstructive sleep apnea (adult) (pediatric) Primary hypertension Unspecified essential hypertension Chronic diastolic heart failure ([facility]) Chronic diastolic heart failure Stage 3 chronic kidney disease due to type 2 diabetes mellitus ([facility]) Seasonal allergies Allergic rhinitis, cause unspecified BMI 50.0-59.9, adult ([facility] Type 2 diabetes mellitus with stage 4 chronic kidney disease, without long-term current use of insulin ([facility])- Primary Type 2 diabetes mellitus without complication, without long-term current use of insulin ([facility]) Left lower quadrant abdominal pain- Primary Morbid (severe) obesity due to excess calories ([facility] Body mass index (BMI) 45.0-49.9, adult ([facility]) Restless leg syndrome Restless legs syndrome (RLS) Stage 3b chronic kidney disease ([facility]) Type 2 diabetes mellitus with other circulatory complications ([facility])- Primary Type 2 diabetes mellitus with stage 4 chronic kidney disease, without long-term current use of insulin ([facility]) Type 2 diabetes mellitus with stage 3a chronic kidney disease, without long-term current use of insulin ([facility]) Class 3 severe obesity due to excess calories with serious comorbidity and body mass index (BMI) of45.0 to 49.9 in adult ([facility] Primary hypertension- Primary Unspecified essential hypertension Spinal stenosis of lumbar region at multiple levels Restless leg syndrome Restless legs syndrome (RLS) URIEL (obstructive sleep apnea) Obstructive sleep apnea (adult) (pediatric) Coronary arteriosclerosis Coronary atherosclerosis of unspecified type of vessel, buckland or graft Stage 3b chronic kidney disease ([facility]) Swelling of both lower extremities Lower extremity edema Edema Type 2 diabetes mellitus with stage 3a chronic kidney disease, without long-term current use of insulin ([facility]) Class 3 severe obesity due to excess calories with serious comorbidity and body mass index (BMI) of45.0 to 49.9 in adult ([facility] Bipolar affective disorder, remission status unspecified ([facility]) Generalized anxiety disorder Generalized anxiety disorder Vitamin D deficiency Vitamin B12 deficiency Other B-complex deficiencies H/O bariatric surgery Acute non-recurrent pansinusitis Class 2 severe obesity due to excess calories with serious comorbidity and body mass index (BMI) of38.0 to 38.9 in adult ([facility] Primary Type 2 diabetes mellitus with other circulatory complications ([facility]) Type 2 diabetes mellitus with stage 3a chronic kidney disease, without long-term current use of insulin ([facility]) Encounter for wellness examination in adult- Primary Encounter for screening mammogram for malignant neoplasm of breast Primary hypertension Unspecified essential hypertension Chronic diastolic heart failure ([facility]) Chronic diastolic heart failure Stage 3b chronic kidney disease ([facility]) Class 2 severe obesity due to excess calories with serious comorbidity and body mass index (BMI) of38.0 to 38.9 in adult ([facility]) Type 2 diabetes mellitus with stage 3a chronic kidney disease, without long-term current use of insulin ([facility]) Mixed hyperlipidemia Mixed hyperlipidemia Type 2 diabetes mellitus with other circulatory complications ([facility])- Primary Type 2 diabetes mellitus with stage 3a chronic kidney disease, without long-term current use of insulin ([facility]) Type 2 diabetes mellitus with stage 4 chronic kidney disease, without long-term current use of insulin ([facility]) Type 2 diabetes mellitus without complication, without long-term current use of insulin ([facility]) Class 2 severe obesity due to excess calories with serious comorbidity and body mass index (BMI) of36.0 to 36.9 in adult ([facility] Restless leg syndrome Restless legs syndrome (RLS) documented in this encounter [facility]* Type Assessment Date No Information [facility] Work Phone: History and physical note* Clinical Note Date No Information [facility] Work Phone: History general Narrative - Reported* Type Description Date Medical History hypertension Medical HistoryDyslipidemia (high LDL; low HDL)Medical HistoryMRSA (methicillin resistant staph aureus) culture positiveMedical HistoryCervicalgiaMedical Historydepression with Bipolar IIMedical HistoryOSASurgical HistoryNeck Fusion 2016Surgical HistoryBack [id number] Historyleft Rotator [id number] Surgical HistoryTotal [id number] HistoryHeart [id number] HistoryTonsilectomyTeenagerHospitalization HistorySee Above uBiome Other History general Narrative - Reported* Type Description Date Medical History hypertension Medical HistoryDyslipidemia (high LDL; low HDL)Medical HistoryMRSA (methicillin resistant staph aureus) culture positiveMedical HistoryCervicalgiaMedical Historydepression with Bipolar IIMedical HistoryOSASurgical HistoryNeck Fusion 2016Surgical HistoryBack [id number] Historyleft Rotator [id number] Surgical HistoryTotal [id number] HistoryHeart [id number] HistoryTonsilectomyTeenagerSurgical HistoryLOW BACK SURGERY07/2021Hospitalization HistorySee Above uBiome Other History of Past illness Narrative* Condition Effective Dates (start - stop) O utcome No Information [facility] Work Phone: Instructions* Date Instruction Additional Infor mation No Information [facility] Work Phone: Progress note* Clinical Note Date No Information [facility] Work Phone: Reason for referral (narrative)No reason for referral information [facility] Work Phone: Reason for referral (narrative)* Reason For Referral No Information [facility] Work Phone: Review of systems Narrative - Reported* System Pos/Neg Findings No Information [facility] Work Phone: Summary Purpose Family History No Family History Records Found Relationship Condition Age at Onset Recorded Date/T antony Not Specified Malignant neoplasm of head and neck Unkn own Diabetes mellitusUnknownMyocardial infarctionUnknownsisterDiabetes mellitus UnknownfatherMyocardial infarctionUnknownbrotherMyocardial infarctionUnknown Relationship Condition Age at Onset Recorded Date/T antony Not Specified Malignant neoplasm of head and neck Unkn own Diabetes mellitusUnknownMyocardial infarctionUnknownsisterDiabetes mellitus UnknownfatherMyocardial infarctionUnknownbrotherMyocardial infarctionUnknown brotherFamily history of mental disorderUnknownHypertensionUnknownfatherHeart diseaseUnknownFamily history of mental disorderUnknownDeceasedUnknownNot SpecifiedHypertensionUnknownHistory of strokeUnknownMalignant neoplasmUnknown sisterFamily history of mental disorderUnknown Relationship Condition Age at Onset Recorded Date/T antony mother Malignant neoplasm of head and neck Unkno wn Diabetes mellitusUnknownMyocardial infarctionUnknownsisterDiabetes mellitus UnknownfatherMyocardial infarctionUnknownbrotherMyocardial infarctionUnknown brotherFamily history of mental disorderUnknownHypertensionUnknownfatherHeart diseaseUnknownFamily history of mental disorderUnknownDeceasedUnknownmother HypertensionUnknownHistory of strokeUnknownMalignant neoplasmUnknownsisterFamily history of mental disorderUnknown Family Member Type Diagnosis Age At Onset Father Problem (finding) MotherProblem (finding) Advance Directives No Advanced Directives Records Found Advance Directive Response Recorded Date/ Time Advance Directives No March 19, 2018 5:43pm Advance Directive Response Recorded Date/ Time Advance Directives No March 19, 2018 4:43pm Directive Yes / No Effective Date File Name No Information Hospital Course Note MR#: [id number] [facility] Pt. Name: Sherly Humphreys Admitted: [...] myelopathy (M47.14) Referral Organization [facility] urosurger Referring Provider First Name Christian Referring Provider Last Name Alfonso Referring Provider Specialty Neurologica l Surgery Referred Organization [facility] Pain Managemen t Referred Provider Ivan Sams Referred Address [address] [address] ,[place], [place],[address] Referred Provider Specialty Pain Medicin e Referral Priority Routine General Notes Nini Davison 023 12:45:54 PM >Received today and sent P2P Kristal Veloz 05/16/2022 02:01:28 PM >[facility]37 AM >Patient was a no show to her appt Nini Davison 06/13/2022 11:23:40 AM >Telephone encounter was sent Reason Evaluate and Treat B ilateral Low Back Pain Diagnosis 1 Low back pain (M54.5 ) Referral Organization [facility]urger Referring Provider First Name Christian [...] Acute Renal Failure Acute Renal Failure N17.9 N18.9Reason for VisitDiabetic nephropathy associated with type 2 diabetes mellitus [...] Acute Renal Failure N17.9 N18.9 [facility]NALReason for VisitDiabetic nephropathy associated with type 2 diabetes mellitus [...] N18.9 [facility] hx of colon polypsReason for VisitDiabetic nephropathy associated with type 2 diabetes mellitus [...] and content) DATE CREATED AUTHOR 11/22/2018 [facility] DATE CREATED AUTHOR AUTHOR'S ORGANIZ ATION 09/22/2022 [facility] DATE CREATED AUTHOR AUTHOR'S ORGANIZ ATION 05/26/2023 [facility] DATE CREATED AUTHOR AUTHOR'S ORGANIZ ATION 11/04/2024 [facility] DATE CREATED AUTHOR AUTHOR'S ORGANIZ ATION 12/16/2024 [facility] DATE CREATED AUTHOR AUTHOR'S ORGANIZ ATION 12/31/2024 [facility] DATE CREATED AUTHOR AUTHOR'S ORGANIZ ATION 01/31/2025 [facility] DATE CREATED AUTHOR AUTHOR'S ORGANIZ ATION 02/01/2025 [facility] REASON FOR VISIT (unrecogniz ed section and content) ReasonCommentsDiabetesReasonCommentsMed RefillReasonCommentsAnnual Exam Hypertension Care Teams (unrecognized sec tion and content) Team Status: Active Member Role Status Dates Janene Lew Primary Care Provider Active Team Status: Active Member Role Status Dates Janene Lew Primary Care Provider Active Sta rt: November 06, 2024 Valdemar Alonso , TADEOttending ProviderActiveStart: November 06, 2024 Team Status: Inactive Member Role Status Dates Janene Lew Primary Care Provider Active Sta rt: November 18, 2024 End: November 18mono Mac , MDAttending ProviderActiveStart: November 18, 2024 End: November 18, 2024 Team Status: Inactive Member Role Status Dates Janene Lew Primary Care Provider Active Sta rt: May 17, 2023 End: May 17, 2023Fauzia Huffman MDAttending ProviderActiveStart: May 17, 2023 End: May 17mono Mac MDReferring ProviderActiveStart: May 17, 2023 End: May 17, 2023 Team Status: Inactive Member Role Status Dates Janene Lew Primary Care Provider Active Sta rt: June 19, 2023 End: June 19, 2023Fauzia Huffman MDAttending ProviderActiveStart: June 19, 2023 End: June 19, 2023 Team Status: Inactive Member Role Status Dates Janene Lew Primary Care Provider Active Sta rt: August 10, 2023 End: August 09mono Mac MDAttending ProviderActiveStart: August 10, 2023 End: August 10, 2023 Team Status: Active Member Role Status Dates Janene Lew Primary Care Provider Active Sta rt: March 15, 2023 Valdemar Alonso , TADEOttending ProviderActiveStart: March 15, 2023 Team Status: Inactive Member Role Status Dates Janene Lew Primary Care Provider Active Christian E Hamilton , MDAttending ProviderActive Team Status: Inactive Member Role Status Dates [facility]ene [facility]opes [facility] Primary [facility] Provider Active Emma Bolivar NPAttending ProviderActive Team Status: Inactive Member Role Status Dates Janene Moses [facility] Primary Care Provider Active Merissa Hernandez DIANETICIST-BCEmergency ProviderActive Team Status: Inactive Member Role Status Dates [facility]ene [facility] Primary Care Provider Active Sta rt: August 15, 2023 End: August 14Tarah Ochoa ProviderActiveStart: August 15, 2023 End: August 15, 2023 Team Status: Active Member Role Status Dates [facility] Primary Care Provider Active Sta rt: September 03, 2023 Tarah Baird ProviderActiveStart: September 03, 2023 Team Status: Inactive Member Role Status Dates [facility] Primary Care Provider Active Sta rt: October 01, 2023 End: October 02, 2023Payal Duvall ProviderActiveStart: October 01, 2023 End: October 02, 2023Scarlet Kauffman ProviderActiveStart: October 01, 2023 End: October 02, 2023Tarah Rolle ProviderActiveStart: October 01, 2023 End: October 02, 2023 Team Status: Active Member Role Status Dates [facility] Primary Care Provider Active Sta rt: October 01, 2023 Payal Duvall ProviderActiveStart: October 01, 2023 Tarah Kauffman Provider, Other ProviderActiveStart: October 01, 2023 Scarlet Rolle ProviderActiveStart: October 01, 2023 Team Status: Inactive Member Role Status Dates [facility] Primary Care Provider Active Sta rt: October 11, 2023 End: October 11, 2023Tarah Rolle ProviderActiveStart: October 11, 2023 End: October 11, 2023 Team Status: Active Member Role Status Dates [facility] Primary Care Provider Active Sta rt: October 16, 2023 Valdemar Alonso , TADEOttending ProviderActiveStart: October 16, 2023 Team Status: Inactive Member Role Status Dates Janene Lopes Reddsaulo Primary Care Provider Active Sta rt: October 16, 2023 End: October 15youngrufus Mac MDAttending ProviderActiveStart: October 16, 2023 End: October 16, 2023 Team Status: Active Member Role Status Dates Janene Lopes Reddtimmyjeremiah Primary Care Provider Active Sta rt: October 29, 2023 Valdemar Grissomz , Samanthaending ProviderActiveStart: October 29, 2023 Team Status: Inactive Member Role Status Dates Janene Lopes Reddlulrufus Primary Care Provider Active Sta rt: November 01, 2023 End: October 31da Bryn TADEOttending ProviderActiveStart: November 01, 2023 End: November 01, 2023Team MemberRelationshipSpecialtyStart DateEnd Date Markel Haq MD [address] [address] PCP - GeneralFamily Medicine05/03/23 Janene Lew NP [address] [place] [address] PCP - [facility] [employer]09/15/23Team MemberRelationshipSpecialtyStart DateEnd Date Markel Haq MD [address] [place] [address] PCP - GeneralFamily Medicine05/03/23 Janene Lew NP [address] [place] [address] PCP - [facility] [employer]09/15/23Team MemberRelationshipSpecialtyStart DateEnd Date Markel Haq MD [address] [place] [address] PCP - GeneralFamily Medicine05/03/23 Janene Lew NP [address] [place] [address] PCP - [facility] [employer]09/15/23Team MemberRelationshipSpecialtyStart DateEnd Date Markel Haq MD [address] [place] [address] [facility] Janene Lew NP [address] [place] [address] PCP - [facility] [employer]09/15/23Team MemberRelationshipSpecialtyStart DateEnd Date Markel Haq MD [address] [place] [address] PCP - [facility] Medicine05/03/23 Janene Lew NP [address] [place] [address] PCP - [facility] [employer]09/15/23Team MemberRelationshipSpecialtyStart DateEnd Date Markel Haq MD [address] [place] [address] PCP - Generalmi Medicine05/03/23 Janene Lew NP [address] [place] [address] PCP - [facility] [employer]09/15/23Team MemberRelationshipSpecialtyStart DateEnd Date Markel Haq MD [address] [place] [address] PCP - GeneralFamily Medicine05/03/23 Janene Lew NP [address] [place] [address] PCP - [facility] [employer]09/15/23Team MemberRelationshipSpecialtyStart DateEnd Date Markel Haq MD [address] [place] [address] [facility]/23 Janene Lew, ELIER [address] [place] [address] PCP - [facility] [employer]09/15/23Team MemberRelationshipSpecialtyStart DateEnd Date Markel Haq MD [address] [place] [address] PCP - GeneralFami Medicine05/03/23 Janene Lew NP [address] [place] [address] PCP - [facility] [employer]09/15/23Team MemberRelationshipSpecialtyStart DateEnd Date Markel Haq MD [address] [place] [address] PCP - GeneralFamily Medicine05/03/23 Janene Lew NP [address] [place] [address] PCP - [facility] [employer]09/15/23Team MemberRelationshipSpecialtyStart DateEnd Date Markel Haq MD [address] [place] [address] PCP - Generalmi Medicine05/03/23 Janene Lew NP [address] [place] [address] PCP - [facility] [employer]09/15/23Team MemberRelationshipSpecialtyStart DateEnd Date aMrkel Haq MD [address] [place] [address] [facility]/03/23 Janene Lew NP [address] [place] [address] PCP - [facility] [employer]09/15/23Team MemberRelationshipSpecialtyStart DateEnd Date Markel Haq MD [address] [place] [address] [facility]/23 Janene Lew NP [address] [place] [address] PCP - [facility] [employer]09/15/23Team MemberRelationshipSpecialtyStart DateEnd Date Markel Haq MD [address] [place] [address] PCP - GeneralFamily Medicine05/03/23 Janene Lew NP [address] [place] [address] PCP - [facility] [employer]09/15/23Team MemberRelationshipSpecialtyStart DateEnd Date Markel Haq MD [address] [place] [address] PCP - GeneralFamily Medicine05/03/23 Janene Lew NP [address] [place] [address] PCP - [facility] [employer]09/15/23Team MemberRelationshipSpecialtyStart DateEnd Date Markel Haq MD [address] [place] [address] PCP - GeneralFamily Medicine05/03/23 Janene Lew NP [address] [place] [address] PCP - [facility] [employer]09/15/23Team MemberRelationshipSpecialtyStart DateEnd Date Markel Haq MD [address] [place] [address] PCP - GeneralFamily Medicine05/03/23 Janene Lew, ELIER [address] [place] [address] PCP - [facility] [employer]09/15/23Team MemberRelationshipSpecialtyStart DateEnd Date Markel Haq MD [address] [place] [address] PCP - GeneralFamily Medicine05/03/23Team MemberRelationshipSpecialtyStart DateEnd Date Markel Haq MD [address] [place] [address] PCP - GeneralFamily Medicine05/03/23Team MemberRelationshipSpecialtyStart DateEnd Date Markel Haq MD [address] [place] [address] PCP - GeneralFamily Medicine05/03/23Team MemberRelationshipSpecialtyStart DateEnd Date Markel Haq MD [address] [place] [address] PCP - GeneralFamily Medicine05/03/23Team MemberRelationshipSpecialtyStart DateEnd Date Markel Haq MD [address] [place] [address] PCP - GeneralFamily Medicine05/03/23Team MemberRelationshipSpecialtyStart DateEnd Date Markel Haq MD [address] [place] [address] [facility]/23Team MemberRelationshipSpecialtyStart DateEnd Date Markel Haq MD [address] [place] [address] PCP - [facility] Medicine05/03/23Team MemberRelationshipSpecialtyStart DateEnd Date Markel Haq MD [address] [place] [address] PCP - [facility]05/03/23Team MemberRelationshipSpecialtyStart DateEnd Date Markel Haq MD [address] [place] [address] PCP - [facility]05/03/23 Team Status: Inactive Member Role Status Dates Janene Lew Primary Care Provider Active Sta rt: November 26, 2024 End: November 26Tarah Ochoa ProviderActiveStart: November 26, 2024 End: November 26, 2024Team MemberRelationshipSpecialtyStart DateEnd Date Markel Haq MD [address] [place] [address] PCP - [facility]05/03/23 Name Effective Dates (start - stop) Status Members No Information Team Status: Inactive Member Role Status Dates Janene Lew Primary Care Provider Active Sta rt: December 16, 2024 End: December 16, 2024Janene Ivy ProviderActiveStart: December 16, 2024 End: December 16, 2024 [...] BE BASED ON THE PRIMARY CLINICAL RECORDS. [facility]. provides no warranty or guarantee of the accuracy or completeness of information in this document.
== END 2025-02-02 08:01 | disposition home or self-care (01) ==
LOC: PM 02-04 09:39
PROVIDERS: PCP Nurse Practitioner; Visit Provider Anesthesiology
DX: M48.062 Spinal stenosis, lumbar region with neurogenic claudication (principal); M96.1 Postlaminectomy syndrome, not elsewhere classified
CPT/HCPCS: G0463

== ENCOUNTER 2025-03-18 10:45 | Outpatient (OUT) | payer BC, SELFPAY ==
--- OUTSIDE RECORDS SUMMARY | 2025-02-05 03:01 | XMS_ITS | Continuity of Care Document ---
Author Organization [facility] Address [address] [place] [address] Phone Care Team Providers Care Canvas Worker Name Role Phone Nicola MARKJoshua Unavailable Unavailable [...] (45 mg iron) tablet,extended release - Active Procedures Procedure Date Oral Hygiene Instruction Resin Composite 2s; Posterior Root Canal Therapy Anterior Core Buildup Oral Hygiene Instruction Periodic Oral Eval Estab Patient 2024 Extract; Erupted Th/exposted Rt 025 Bitewings Four Films Intraoral-periapical 1st Film 5 Gflhkbwnp-[id number] Additional Nov Bumgzhcay-efhhjtfbbn-dkum Additional Nov Psdygfmkw-pscksyettd-zxks Additional Nov Oral Hygiene Instruction Intraoral-periapical 1st Film 4 Bitewig-single Film Oral Hygiene Instruction Limited Oral Eval Nutrit Couns For Control Of [place] Dis Apr Extract; Erupted Th/exposted Rt 024 Intraoral-complete Series (bw) 24 Comp Oral Eval New/estab Patient 2023 Oral Hygiene Instruction OFFICE/OUTPATIENT VISIT, NEW Contraceptive pills for bc Advance Directives Directive Yes / No Effective Date File Name No Information Encounters Encounter Description Practice Location Reason(s) For Visit Diagnoses Date Provider Providers Copied on Encounter [facility], [address] [place] [address], [id number], tel:[phone] Dental Clinic fill (chief complaint) Body mass index [BMI]40.0-44.9, adultEncounter for screening for dental disorders 5 [facility]. [address], [place], [id number], [place]. tel:[phone] [facility], [address] [place] [address], [id number], [place] tel:[phone] Dental Clinic Endo (chief complaint) Encounter for screening for dental disorders 5 [facility]. [address], [place], [id number], [place]. tel:[phone] [facility], [address], [place], [id number], [place] tel:[phone] Dental Clinic Periodic exam (chief complaint) Body mass index [BMI] 39.0-39.9, adultEncounter for screening for dental disordersDental caries, unspecified 5 Nicola Lewis. [address], [place], [id number], [place]. tel:[phone] [facility], [address], [place], [id number], [place] tel:[phone] Dental Clinic ER (chief complaint) Encounter for screening for dental disorders 4 Nicola Lewis. [address], [place], [id number], [place]. tel:[phone] [facility], [address], [place], [id number], [place] tel:[phone] Dental Clinic ext (chief complaint) Body mass index [BMI] 50.0-59.9, adultEncounter for screening for dental disorders 4 Mannie DDS Zev. [address] [place], [address], [place]. tel:[phone] [facility], [address], [place], [id number], [place] tel:[phone] Dental Clinic dn (chief complaint) Encounter for screening for dental disorders 4 Mutaylor DDS Zev. [address] [place], [address], [place]. tel:[phone] OFFICE/OUTPAT IENT VISIT, [facility], [address], [place], [id number], [place] tel:[phone] [facility] No Information [address] Eliza Scott. [address], [place], [id number]. tel:[phone] Family History Family Member Type Diagnosis Age At Onset Father Problem (finding) Mother Problem (finding) Payers Payer name Insurance type Covered green party ID Rafy burnham(mynor) Tabitha [employer] DPPO Dental Claims CI [id number] Social History Type Description Quantity Date Captured Comments Alcohol Use Details Unknown Caffeine Use Details Unknown Tobacco Use Status Current non-smoker Smoking Status Never smoker Sex Female Sexual Orientation Straight or heterosexual Gender Identity Female Vital Signs Date / Time: Height Weight BMI Pulse Rate Blood Pressure Temperature Respiratory Rate Body Surface Area Head Circumference Head Circ. Percentile Wt./Payam. Percentile BMI percentile Pulse Ox Inhaled Ox 8:13 AM 64.00 in 106.594 kg (235.00 lbs) 40.3 4 kg/m eter (2) 50 /min 136/74 mm[Hg] 98.20 F 2.19 meter(2) Chief Complaint And Reason For Visit From encounter dated '02/05/2025 08:01'. fill (chief complaint). Description: fill Reason For Referral Reason For Referral No Information Plan Of Treatment Date Type Action Status Goal HPV. Due on due Goal Tdap. Due on due Goal Lipid panel. Due on 025 due Goal Hep A. Due on du e Goal Tdap Vaccine. Due on 2024 due Goal Influenza vaccine. Due on Oc due Goal Depression screening. Due on due Goal FOBT. Due on due Goal CT-Colonography. Due on due Goal PRAPARE ASSESSMENT. Due on O ct due Goal FIT. Due on due Goal Hepatitis C screening. Due o n due Goal FIT-DNA. Due on due Goal Unhealthy drug use screening . Due on due Goal Mammogram. Due on due Goal Colonoscopy. Due on due Goal Zoster vaccine (). Due on due Goal Dietary manageme nt education, guidance, and counseling completed Goal PRAPARE ASSESSMENT. Due on due Goal Zoster vaccine (). Due on due Goal Depression screening. Due on due Goal FIT. Due on due Goal HPV. Due on due Goal Colonoscopy. Due on due Goal CT-Colonography. Due on due Goal Tdap Vaccine. Due on 2024 due Goal Tdap. Due on due Goal FOBT. Due on due Goal Mammogram. Due on due Goal Lipid panel. Due on due Goal Hep A. Due on du e Goal FIT-DNA. Due on due Goal Influenza vaccine. Due on due Goal Unhealthy drug use screening . Due on due Goal Hepatitis C screening. Due o n due Goal Hep A. Due on du [...] 2024 due Goal Influenza vaccine. Due on due Goal FIT. Due on due Goal Mammogram. Due on due Goal FIT-DNA. Due on due Goal PRAPARE ASSESSMENT. Due on A due Goal Zoster vaccine (). Due on due Goal Lipid panel. Due on due Goal Dietary manageme nt education, guidance, and counseling completed Goal Colonoscopy. Due on due Goal Mammogram. Due on due Goal Hepatitis C screening. Due o n due Goal Depression screening. Due on due Goal FIT-DNA. Due on due Goal Tdap Vaccine. Due on 2023 due Goal Unhealthy drug use screening . Due on due Goal HPV. Due on due Goal CT-Colonography. Due on due Goal FOBT. Due on due Goal Zoster vaccine (). Due on due Goal FIT. Due on due Goal Lipid panel. Due on due Goal Influenza vaccine. Due on due Goal Tdap. Due on due Goal PRAPARE ASSESSMENT. Due on due Goal Influenza vaccine. Due [...] due Goal Mammogram. Due on due Goal Dietary manageme nt education, guidance, and counseling completed Goal Mammogram. Due on due Goal CT-Colonography. Due on due Goal Influenza vaccine. Due on due Goal Unhealthy drug use screening . Due on due Goal FOBT. Due on due Goal Zoster vaccine (). Due on due Goal Tdap Vaccine. Due on 2023 due Goal Hep A. Due on du e Goal PRAPARE ASSESSMENT. Due on due Goal Colonoscopy. Due on due Goal Depression screening. Due on due Goal Hepatitis C screening. Due o n due Goal HPV. Due on due Goal Tdap. Due on due Goal FIT-DNA. Due on due Goal Lipid panel. Due on due Goal FIT. Due on due Appointment SahraSherly BOOKED Appointment SahraSherly blank BOOKED History Of Present Illness Encounter Date Complaint History Of Prese nt Illness fill fill Endo Endo Periodic exam periodic exam ER ER ext ext dn dn Functional Status Date Functional Assessmen t No Information Instructions Date Instruction Additional Infor elginion Dietary management e ducation, guidance, and counseling Related to Body mass index [BMI] 40.0-44.9, adult Dietary management e ducation, guidance, and counseling Related to Body mass index [BMI] 39.0-39.9, adult Dietary management e ducation, guidance, and counseling Related to Body mass index [BMI] 50.0-59.9, adult Giving encouragement to exercise Related to Body mass index [BMI] 50.0-59.9, adult Assessments Type Assessment Date assessment Body mass index [BMI] 40.0-44.9, adult Patient Care Teams Name Effective Dates (start - stop) Status Members No Information
--- OUTSIDE RECORDS SUMMARY | 2025-03-04 11:00 | XMS_ITS | Encounter Summary ---
Author Organization [facility] Address [address] [place] [address] Care Team Providers Care Webbing Tacker Name Role Phone Markel Braxton MD Primary Care Provider [phone] Janene Lew NP Unavailable [phone] Reason for Visit * ReasonCommentsPain * Consultation (Routine) - ClosedSpecialtyDiagnoses / ProceduresReferred By ContactReferred To ContactOrthopaedic Surgery Diagnoses Pain in left shoulder Procedures [facility] Physician [address] [place] [address] Phone: tel: fax: Jr. Altaf Obando, [address] [facility] [address] [place] [address] Phone: tel: fax: Referral IDStatusReasonStart DateExpiration DateVisits RequestedVisits [id number]/5/20255/ Encounter Details DateTypeDepartmentCare Team (Latest Contact Info)Tmwzwpfsaus54/19/2025 11:00 AM ESTOffice Visit [facility] [address] [facility] [address] [place] [phone] Jr. Altaf Obando, [address] [facility] [address] [place] [address] Sprain of right rotator cuff capsule, initial encounter (Primary Dx); Acute pain of left shoulder Social History Tobacco UseTypesPacks/DayYears UsedDateSmoking Tobacco: NeverPassive Smoke Exposure: NeverSmokeless Tobacco: NeverAlcohol UseStandard Drinks/WeekComments Never0 (1 standard drink = 0.6 oz pure alcohol)caffeine: coffee, soda/[id number] Health LiteracyAnswerDate RecordedHow often do you need to have someone help you when you read instructions, pamphlets, or other written material from your doctor or pharmacy?Never11/18/2024Humiliation, Afraid, Rape, and Kick questionnaireAnswerDate RecordedWithin the last year, have you been afraid of your partner or ex-partner?No11/18/2024Within the last year, have you been humiliated or emotionally abused in other ways by your partner or ex-partner?No 11/18/2024Within the last year, have you been kicked, hit, slapped, or otherwise physically hurt by your partner or ex-partner?No11/18/2024Within the last year, have you been raped or forced to have any kind of sexual activity by your part ner or ex-partner?No11/18/2024Social Connection and Isolation PanelAnswerDate RecordedIn a typical week, how many times do you talk on the phone with family, friends, or neighbors?More than three times a week11/18/2024How often do you get together with friends or relatives?Once a week11/18/2024How often do you attend synagogue or mormon services?Never11/18/2024Do you belong to any clubs or organizations such as synagogue groups, unions, fraternal or athletic groups, or school groups?No11/18/2024How often do you attend meetings of the clubs or organizations you belong to?Never11/18/2024re you , , , , never , or living with a partner?Never hzuoqnp5111/18/2024 AUDIT-CAnswerDate RecordedQ1: How often do you have a drink containing alcohol? Never11/18/2024Q2: How many drinks containing alcohol do you have on a typical day when you are drinking?Patient does not drink11/18/2024Q3: How often do you have six or more drinks on one occasion?Never11/18/2024Overall Financial Resource Strain (CARDIA)AnswerDate RecordedHow hard is it for you to pay for the very basics like food, housing, medical care, and heating?Hard11/18/2024PHQ-2 AnswerDate RecordedPatient Health Questionnaire-2 Lobzt174Fincentral [facility] [place] of Occupational Health - Occupational Stress QuestionnaireAnswerDate RecordedDo you feel stress - tense, restless, nervous, or anxious, or unable to sleep at night because yourmind is troubled all the time - these days?To some cqifax6311/18/2024Exercise Vital SignAnswerDate RecordedOn average, how many days per week do you engage in moderate to strenuous exercise (like a brisk walk)?0 days11/18/2024On average, how many minutes do you engage in exercise at this level?0 min11/18/2024Hunger Vital SignAnswerDate RecordedWithin the past 12 months, you worried that your food would run out before you got the money to buy more.Often true11/18/2024Within the past 12 months, the food you bought just didn't last and you didn't have money to get more.Often true11/18/2024PRAPARE - TransportationAnswerDate RecordedIn the past 12 months, has lack of transportation kept you from medical appointments or from getting medications?No 11/18/2024In the past 12 months, has lack of transportation kept you from meetings, work, or from getting things needed for daily living?No11/18/2024 Housing Stability Vital SignAnswerDate RecordedIn the last 12 months, was there a time when you were not able to pay the mortgage or rent on time?No05/02/2023In the last 12 months, how many places have you lived?In the last 12 months, was there a time when you did not have a steady place to sleep or slept in ashelter (including now)?Yes05/02/2023Housing Stability Vital SignAnswerDate RecordedIn the last 12 months, was there a time when you were not able to pay the mortgage or rent on time?No11/18/2024In the past 12 months, how many times have you moved where you were living?t any time in the past 12 months, were you homeless or living in a chcf (including now)?No11/18/2024 CommentsUnknownSex and Gender InformationValueDate RecordedSex Assigned at BirthNot on fileLegal YaoEojlvf34/15/2023 7:05 PM EDTGender IdentityNot on fileSexual OrientationNot on filedocumented as of this encounter Progress Notes * Jr. Altaf Obando, DO - 03/04/2025 11:00 AM EST Images from the original note were not included. NAME: Sherly Bocanegra : 1970 HISTORY OF PRESENT ILLNESS: NEW PT Sherly Bocanegra is an 54 y.o. @ female. (NEW PT) - (L) SHOULDER DISCOMFORT S/P INJURY 07/04/24 (~8 MONTHS) - FALL OFF OF PORCH, LANDED ON (L) SIDE, SE[facility], TX WITH SLING / XRAY HUMERUS SCHEDULED FOR LUMBAR PAIN STIMULATOR 03/2025 HGB A1C 11/03/24 - 5.2 XRAY (L) SHOULDER TODAY, 03/04/25 IN EPIC XRAY (L) HUMERUS 07/05/24 @[facility] NO MRI NO MDP / PREDNISONE NO CORTISONE INJ NO PT NO PAIN MGMT ANTERIOR / POSTERIOR UPPER ARM / SCAPULAR DISCOMFORT WITH USE. WORSE WITH LYING FLAT. NUMBNESS WITHDRIVING. DENIES SWELLING. ADMITS WEAKNESS. LIMITED ROM. ADMITS STIFFNESS. CONTINUES HEP PER PCP. ADMITS POPPING / GRINDING. DENIES CATCHING. ADMITS WAKING HS. TIZANIDINE / GABAPENTIN / PERCOCET (LBP)DAILY. ADMITS HEAT - WITH RELIEF. NO TOPICALS. HX (L) SHOULDER SCOPE 2014 (DR. OBANDO) CURRENTLY HAS KIDNEY DISEASE. PAST MEDICAL HISTORY: Medical History[1] PAST SURGICAL HISTORY: Surgical History[2] SOCIAL HISTORY: Social History Occupational History Not on file Tobacco Use Smoking status: Never Passive exposure: Never Smokeless tobacco: Never Vaping Use Vaping status: Never Used Substance and Sexual Activity Alcohol use: Never Comment: caffeine: coffee, soda/pop Drug use: Never Sexual activity: Not Currently Partners: Male control/protection: None ALLERGIES: Allergies[3] HOME MEDICATIONS: Current Outpatient Medications Medication Instructions amLODIPine (NORVASC) 10 mg, Oral, Daily ARIPiprazole (ABILIFY) 30 mg, Daily aspirin (ASPIRIN ADULT LOW DOSE) 81 mg, Daily atorvastatin (LIPITOR) 80 mg, Daily benztropine (Cogentin) 0.5 MG tablet Blood Glucose Monitoring Suppl (True Metrix Meter) w/Device kit USE 1 TO CHECK GLUCOSE ONCE DAILY busPIRone (BUSPAR) 30 mg, 2 times daily cetirizine (ZYRTEC) 10 mg, Daily cholecalciferol (VITAMIN D-3) 5,000 Units, Daily fenofibrate (TRICOR) 145 mg, Oral, Daily FLUoxetine (PROZAC) 40 mg, Daily FLUoxetine (PROZAC) 20 mg, Daily fluticasone (Flonase) 50 MCG/ACT nasal spray 2 sprays, Each Nostril, Daily gabapentin (NEURONTIN) 600 mg, Oral, 2 times daily PRN glucose blood (True Metrix Blood Glucose Test) test strip Checking bg levels once a day isosorbide mononitrate ER (IMDUR) 30 mg, Daily Lancets 33G misc Checking bg levels once a day metoprolol succinate XL (TOPROL-XL) 12.5 mg, Daily Mounjaro 7.5 mg, Subcutaneous, Every 7 days nitroglycerin (Nitrostat) 0.[address] [...] Vraylar 6 MG capsule 1 capsule, Daily REVIEW OF SYSTEMS: Review of Systems Vitals: There is no height or weight on file to calculate BMI. Tobacco Use: Low Risk (11/03/2024) Patient History Smoking Tobacco Use: Never Smokeless Tobacco Use: Never Passive Exposure: Never Alcohol Use: Not At Risk (11/18/2024) AUDIT-C Frequency of Alcohol Consumption: Never Average Number of Drinks: Patient does not drink Frequency of Binge Drinking: Never PHYSICAL Exam: Shoulder Musculoskeletal Exam Inspection Left Left shoulder inspection is normal. Ecchymosis: none Peripheral edema: none Atrophy: none Masses: none Prior incision: arthroscopic portals Incision: well-healed Palpation Left Crepitus: no crepitus Increased warmth: none Tenderness: present Anterior shoulder: mild AC joint: mild Lateral arm: mild Range of Motion Right Right shoulder active abduction: + pain passing 90 degrees. Left Left shoulder range of motion is normal. Active ROM: pain. Passive ROM: pain. Active forward elevation: 120. Passive forward elevation: 180. Shoulder active abduction: 120. Passive abduction: 160. Active external rotation at side: 80. Passive external rotation at side: 80. Internal rotation: L5. Strength Left External rotation: 5/5. Internal rotation: 5/5. Abduction: 5/5. Biceps: 5/5. Triceps: 5/5. Neurovascular Left Radial pulse: normal and 2+ Capillary refill: <3 sec Axillary nerve sensory distribution: normal Scapula Left Left shoulder scapula is normal. Position: normal Winging: none Special Tests Left Rotator Cuff Signs Neer's test: positive Veloz test: positive Painful arc test: positive Biceps/carolee Signs Speed's test: negative General Constitutional: appears stated age Neurological: alert and oriented x3 IMAGING: Procedures Orders Placed This Encounter Procedures XR shoulder 2+ views left Is the patient ?: No Reason for exam:: Pain ASSESSMENT: ICD-10-CM 1. Sprain of right rotator cuff capsule, initial encounter S43.421A 2. Acute pain of left shoulder M25.512 XR shoulder 2+ views left PLAN: We have discussed her physical exam, symptoms and x-rays today. She has a history of having a left rotator cuff repair by me over 10 years ago. We have ordered an MRI to rule out repeat rotator cuff tear. We'll see her back following her MRI. We have discussed her restrictions and home exercise program for her left shoulder in the interim. Questions answered in laymen terms at the bedside. The diagnosis, home exercise plan and any ongoing restrictions/ recommendations reviewed. If unable to be reached in office, I recommend evaluation at nearest Emergency Room if any symptoms worsened or new symptoms develop for requiring urgent evaluation. [1] Past Medical History: Diagnosis Date Abdominal wall hernia 07/02/2023 Allergic 04/30/2023 Anemia 04/30/2023 Anxiety 2010 Arthritis Bradycardia 04/30/2023 Chest pain Chronic left shoulder pain Clostridioides difficile diarrhea 07/02/2023 Coronary arteriosclerosis 04/30/2023 COVID-19 Degenerative disc disease, lumbar 07/02/2023 Depression 04/30/2023 Diabetes mellitus, type 2 (HCC) 04/30/2023 Dyspnea 07/02/2023 Elevated liver enzymes 07/02/2023 Family history of cancer Fatigue GERD (gastroesophageal reflux disease) 04/30/2023 H/O bariatric surgery 07/02/2023 Headache 07/02/2023 History of fusion of cervical spine Hyperkalemia Hyperlipidemia 04/30/2023 Hypertension 04/30/2023 Hypomagnesemia 04/30/2023 Insomnia 07/02/2023 Irritable bowel syndrome with diarrhea 07/02/2023 Lower extremity edema 04/30/2023 Lumbar disc herniation 07/02/2023 Microscopic hematuria 04/30/2023 Migraine headache 04/30/2023 Myalgia Nephrolithiasis 07/02/2023 Obesity URIEL (obstructive sleep apnea) 04/30/2023 Lqcu-BMMIV-60 condition Restless leg syndrome Seasonal allergies 04/30/2023 Spinal stenosis of lumbar region at multiple levels 04/30/2023 Spinal stenosis of thoracolumbar region 04/30/2023 Stage 3 chronic kidney disease due to type 2 diabetes mellitus (HCC) 04/30/2023 Swelling of both lower extremities 04/30/2023 [2] Past Surgical History: Procedure Laterality Date BACK SURGERY 2021 BARIATRIC SURGERY 2017 COLONOSCOPY HYSTERECTOMY 2010 NECK SURGERY SHOULDER SURGERY Left RC [3] Allergies Allergen Reactions Prochlorperazine Unknown Other Reaction(s): Other, Seizure seizures Sulfamethoxazole Rash Other Reaction(s): Other Empagliflozin jardiance Keflex [Cephalexin] Nexium [Esomeprazole] GI intolerance Penicillins Phenergan [Promethazine] Prilosec [Omeprazole] GI intolerance Protonix [Pantoprazole] GI intolerance Zolpidem Unknown Other Reaction(s): Unknown Reaction Sulfamethoxazole-Trimethoprim Rash Other Reaction(s): other, Unknown documented in this encounter Plan of Treatment DateTypeDepartmentCare Team (Latest Contact Info)Iugfaewkijv64/20/2026 10:15 AM ESTOffice Visit [facility] [address] [place] [address] Marya Loya DO [address] [place] [address] NameTypePriorityAssociated DiagnosesDate/TimeXR shoulder 2+ views leftImaging Routine Acute pain of left shoulder 03/04/2025 11:47 AM ESTdocumented as of this encounter Visit Diagnoses Diagnosis Sprain of right rotator cuff capsule, initial encounter- Primary Acute pain of left shoulder documented in this encounter Additional Health Concerns AssessmentNoted TimePHQ-9 Depression Total Score: 16005/03/2023 1:18 PM EST documented as of this encounter Care Teams Team MemberRelationshipSpecialtyStart DateEnd Date Markel Braxton MD [address] [place] [address] PCP - GeneralFamily Rfptykaj61/5/25 Janene Lew NP [address] [place] [phone] Nurse PractitionerFamily Yvfbcynq91/5/25documented as of this encounter
--- OUTSIDE RECORDS SUMMARY | 2025-03-04 11:50 | XMS_ITS | Encounter Summary ---
Author Organization [facility] Address [address] [facility] [place] [address] Care Team Providers Care Cupola Tender Name Role Phone Markel Braxton MD Primary Care Provider [phone] Janene Lew NP Unavailable [phone] Encounter Details DateTypeDepartmentCare Team (Latest Contact Info)Lkpqicmqrxz34/19/2025 11:50 AM ESTAncillary Procedure [facility] [address] [facility] [address] [place] [phone] Social History Tobacco UseTypesPacks/DayYears UsedDateSmoking Tobacco: NeverPassive Smoke Exposure: NeverSmokeless Tobacco: NeverAlcohol UseStandard Drinks/WeekComments Never0 (1 standard drink = 0.6 oz pure alcohol)caffeine: coffee, soda/jpuV0384 Health LiteracyAnswerDate RecordedHow often do you need [...] relatives?Once a week11/18/2024How often do you attend caodaism or alevism services?Never11/18/2024Do you belong to any clubs or organizations such as caodaism groups, unions, fraIdentica Holdings or athletic groups, or school groups?No11/18/2024How often do you attend meetings of the clubs or organizations you belong to?Never11/18/2024re you , , , , never , or living with a partner?Never acgemum9611/18/2024 AUDIT-CAnswerDate RecordedQ1: How often do you have [...] care, and heating?Hard11/18/2024PHQ-2 AnswerDate RecordedPatient Health Questionnaire-2 Ieizc320Fin[facility] [place] of Occupational Health - Occupational Stress QuestionnaireAnswerDate RecordedDo you feel stress - tense, restless, nervous, or anxious, or unable to sleep at night because yourmind is troubled all the time - these days?To some jiixwm7511/18/2024Exercise Vital SignAnswerDate RecordedOn average, how many days [...] were you homeless or living in a alf (including now)?No11/18/2024 CommentsUnknownSex and Gender InformationValueDate RecordedSex Assigned at BirthNot on fileLegal DqaDvitmj39/15/2023 7:05 PM EDTGender IdentityNot on fileSexual OrientationNot on filedocumented as of this encounter Plan of Treatment DateTypeDepartmentCare Team (Latest Contact Info)Botkufgcivx46/20/2026 10:15 AM ESTOffice Visit [facility] [address] [place] [address] Marya Loya, DO [address] [place] [address] NameTypePriorityAssociated DiagnosesDate/TimeXR shoulder 2+ views leftImaging Routine Acute pain of left shoulder 03/04/2025 11:47 AM ESTdocumented as of this encounter Visit Diagnoses Not on filedocumented in this encounter Additional Health Concerns AssessmentNoted TimePHQ-9 Depression Total Score: 16005/03/2023 1:18 PM EST documented as of this encounter Care Teams Team MemberRelationshipSpecialtyStart DateEnd Date Markel Braxton MD [address] [place] [address] PCP - GeneralFamily Heemlxlp30/5/25 Janene Lew NP [address] [place] [address] Nurse PractitionerFawestborough behavioral healthcare hospital Mdgjxosr58/5/25documented as of this encounter
--- OUTSIDE RECORDS SUMMARY | 2025-03-18 10:48 | XMS_ITS | Clinical Summary ---
Author Organization [facility] Address [address] [place] [address] Phone Care Team Providers Care Welder First Class Name Role Phone Unavailable Primary Care Provider Unavailabl e Social History Tobacco UseTypesPacks/DayYears UsedDateSmoking Tobacco: Never Assessed CommentsUnknownSex and Gender InformationValueDate RecordedSex Assigned at Not on fileLegal SszDamztb70/26/2022 8:43 AM ESTGender IdentityNot on fileSexual OrientationNot on file Plan of Treatment Not on file
--- OUTSIDE RECORDS SUMMARY | 2025-03-18 10:48 | XMS_ITS | Clinical Summary ---
Author Organization [facility] tem Address [id number] [place] [address] Care Team Providers Care Deputy Commissioner Name Role Phone Markel Braxton MD Primary Care Provider [phone] Allergies Active AllergyReactionsCriticalityNoted XvmyNgwoqkumWrmsqelxigTqsdOfqg62/06/2015 Esomeprazole DmnnpbtmcPidoggml73/09/1875EebdyypiqwOgaazu94/09/2017PenicillinRash High09/17/2015Phenergan QmnloXxva87/03/2016 seizures BnyvhhqkkapfaqurMxhv98/03/2016 seizures PeznhtlqmhfdLurhke11/12/20163888ObexgonjfknfqysnMapsJzxz62/03/2016 Sulfamethoxazole-QusilvvnubstYwzjEho26/09/2017 Medications MedicationSigDispense QuantityRefillsLast FilledStart DateEnd DateStatus cyproheptadine (PERIACTIN) 4 mg tablet Take 4 mg by mouth once daily at bedtime.12/07/2016Active carvedilol (COREG) 25 mg tablet Take 25 mg by mouth 2 (two) times a day with meals.12/25/2016Active ARIPiprazole (ABILIFY) 10 mg tablet Take 10 mg by mouth daily.12/25/2016Active atorvastatin (LIPITOR) 80 mg tablet Indications:hyperlipidemiaTake 80 mg by mouth once daily at bedtime. Indications: UVJFFMSYTJBPUI45/11/2017Active buPROPion XL (WELLBUTRIN XL) 300 mg 24 hr tablet Indications:major depressive disorderTake 300 mg by mouth Daily at 0700. Indications: MAJOR DEPRESSIVE JJWRHBHZ03/11/2017Active busPIRone (BUSPAR) 10 mg tablet Take 10 mg by mouth 2 (two) times a day.12/25/2017Active cetirizine (ZyrTEC) 10 mg tablet Indications:seasonal allergic rhinitisTake 10 mg by mouth once daily at bedtime. Indications: Seasonal Allergic Bqqqycft68/11/2017Active doxycycline (VIBRAMYCIN) 100 mg capsule Indications:MRSA in hardware of neck and spineTake 100 mg by mouth 2 (two) times a day. Indications: MRSA in hardware of neck and spine12/25/2016Active gabapentin (NEURONTIN) 300 mg capsule Indications:restless leg syndromeTake 300 mg by mouth once daily at bedtime. Indications: Restless Legs Ktzfcjgt43/11/2017Active isosorbide mononitrate (IMDUR) 60 mg 24 hr tablet Take 60 mg by mouth once daily at bedtime.12/25/2016Active lamoTRIgine (LaMICtal) 150 mg tablet Take 400 mg by mouth daily.12/25/2016Active lisinopril (PRINIVIL,ZESTRIL) 20 mg tablet Take 20 mg by mouth daily.12/25/2016Active tiZANidine (ZANAFLEX) 4 mg tablet Take 4 mg by mouth as needed for muscle spasms.12/25/2016Active traZODone (DESYREL) 100 mg tablet Indications:major depressive disorderTake 200 mg by mouth nightly. Indications: MAJOR DEPRESSIVE AKZLEUXM94/11/2017Active ondansetron ODT (ZOFRAN ODT) 4 mg disintegrating tablet Indications:Postoperative nauseaDissolve 1 tablet (4 mg total) on tongue every 8 (eight) hours as needed for nausea or vomiting. 90 tablet 12/27/2016Active Additional Information Patient not taking.Reported on 01/04/2017 heparin, porcine, in 0.9% NaCl (HEPARIN FLUSH) 10 unit/mL kit Infuse 5 mL into a venous catheter daily. FLUSH NON VALVED PICC CATHETER WITH NORMAL SALINE 10 ML FOLLOWED BY 5 ML HEPARIN 10 UNITS PER ML DAILY TO MAINTAIN PATENCYActive sodium chloride (NORMAL SALINE FLUSH) 0.9 % injection Infuse 10 mL into a venous catheter daily.Active vit 10-iron fum-folic 65-1 mg tablet Indications:Malnutrition,Intestinal malabsorption, unspecified typeTake 1 tablet by mouth daily. To be started 6 weeks after surgery 30 tablet 11001/04/2017Active HYDROcodone-acetaminophen (NORCO) 5-325 mg per tablet Take 1 tablet by mouth every 6 (six) hours as needed for pain.Active ursodiol (ACTIGALL) 500 mg tablet Indications:Rapid weight lossTake 1 tablet (500 mg total) by mouth daily. BREAK IN 1/2 FIRST 6 WEEKS 30 tablet Active Active Problems ProblemNoted DateDiagnosed QuwzHfpxgbnswui46/12/2017Morbid obesity with BMI of 50.0-59.9, adult12/20/2016Seasonal apxmgxvjp83/01/2017Diabetes mellitus 12/15/20162082Crzbkbzzm74/01/2017Hip pain, nfpxanaox23/01/2017Back pain12/15/2016 Overview (12/15/2016): sees pain mgmt Zuxlueydlm47/01/9284Kqaqcao76/01/8310Nqmzddmxavqctz70/01/2017Heart disease 12/15/2016Chronic diastolic heart dpeqjgh9708/26/2015Coronary arteriosclerosis in [place] rjffgu3608/26/2015Essential ikndlugprwpo37/12/2016Morbid uvcnoal6908/26/2015 Obstructive sleep apnea tqlqywqg88/12/2016 Family History Medical HistoryRelationNameCommentsHeart diseaseFatherHypertensionFather BlindnessMotherafter strokeCancerMotherhead/neckDiabetesMotherHeart attackMother x 2HypertensionMotherStrokeMotherx 2Anesthesia problemsNeg HxRelationNameStatus CommentsFatherMother Social History Tobacco UseTypesPacks/DayYears UsedDateSmoking Tobacco: NeverSmokeless Tobacco: Never Tobacco Cessation:Counseling Given: No Alcohol UseStandard Drinks/WeekCommentsYes0 (1 standard drink = 0.6 oz pure alcohol)rarelyChildcareAnswerDate BhbivusaLbcyqteojXcfjsow64/12/2019Employment AnswerDate IfphonkzQcolbfgnchJhoapam23/12/2019Purpose - LifeAnswerDate Recorded Purpose and direction in tvxySqxuiae94/11/2021CommentsNoSex and Gender InformationValueDate RecordedSex Assigned at BirthNot on fileLegal SexFemale 11/19/2014 11:49 AM EDTGender IdentityNot on fileSexual OrientationNot on file Last Filed Vital Signs Vital SignReadingTime TakenCommentsBlood Fbwfhpuv271/9009 2:18 PM EDT Blpmg7842/21/2017 2:18 PM OTYJjpzuzxtysc57.8 ??C (98.2 ??F)01/04/2017 2:18 PM EDTRespiratory Kstc253512/30/2016 3:22 PM EDTOxygen Snfehatauh990%12/29/2016 11:07 AM EDTInhaled Oxygen Concentration--Rnomfl948.7 kg (275 lb)02/05/2017 3:38 PM SDRThyzba161.6 cm (5' 4 )02/05/2017 3:38 PM EDTBody Mass Index47. 3:38 PM EDT Plan of Treatment Health MaintenanceDue DateLast DoneCommentsStatin Use: Opagwkkhvqpqxv25/10/1971 Depression Gnwjpgxmk86/10/1983Tobacco Zgqdcthqj45/10/1983Adult BMI Screening 1988DTaP,Tdap and Td Vaccines (1 - Tdap)1989Zoster (Shingles) Vaccine (1 of 2)2020Influenza Stmsmvz0612/15/2024 Goals GoalPatient Goal TypeAssociated ProblemsRecent ProgressPatient-Stated?Author For safe transition from hospital to home Cathy Marie, MELISSA Note: Evaluation of progress towards goal: Plan is to return home with resumption of [facility] and TPN lose weight ~Galilea Yousif RN Note: Evaluation of progress towards goal: Pt will follow and tolerate gastric bypass diet to optimize weight loss. Medical Devices ImplantedTypeAreaManufacturerDevice IdentifierShelf Expiration DateModel / Serial / LotRods,ScrewsOther ImplantNeckCardiacStent Advance Directives * Full Code (Latest Code Status on File) Date ActivatedDate InactivatedComments12/20/2016 5:14 PM12/22/2016 7:11 PM Care Teams Team MemberRelationshipSpecialtyStart DateEnd Date Markel Braxton MD PCP - General06/22/16
--- OUTSIDE RECORDS SUMMARY | 2025-03-18 10:48 | XMS_ITS | Clinical Summary ---
Author Organization [facility] Address [address] [place] [address] Care Team Providers Care Network Security Consultant Name Role Phone Markel Braxton MD Primary Care Provider [phone] Janene Lew NP Unavailable [phone] Allergies Active AllergyReactionsCriticalityNoted DfuvTtcrkdvsVjjoerkidcuhp15/11/2023 jardiance Luosbhnzrs44/12/2024EsomeprazoleGI tjweueqexmq85/12/6672Ozwcdyxjbej20/12/2024 Szplhoyifipb99/12/2024OmeprazoleGI qnmelzchwuj92/12/2024ProchlorperazineUnknown High06/27/2013 Other Reaction(s): Other, Seizure seizures PantoprazoleGI ucspevgwecs69/12/7800RmnxfyjdyoxoohrsUgfeLtab91/14/2014 Other Reaction(s): Other Sulfamethoxazole-GvzvzawtnmmhRvokKuz79/19/2014 Other Reaction(s): other, Unknown WdfbtqgwMqczpkk34/02/2024 Other Reaction(s): Unknown Reaction Medications MedicationSigDispense QuantityRefillsLast FilledStart DateEnd DateStatus cetirizine (ZyrTEC) 10 MG tablet Take 10 mg by mouth in the morning.Active aspirin (Aspirin Adult Low Dose) 81 MG EC tablet Take 81 mg by mouth in the morning.Active Cyanocobalamin (Vitamin B-12) [address] 5,000 mg under the tongue 1 (one) time each dayActive busPIRone (Buspar) 30 MG tablet Take 30 mg by mouth in the morning and 30 mg before bedtime.Active cholecalciferol (Vitamin D-3) 125 MCG (5000 UT) capsule Take 5,000 Units by mouth in the morning.Active isosorbide mononitrate ER (Imdur) 30 MG 24 hr tablet Take 30 mg by mouth in the morning. Do not crush or chew..Active metoprolol succinate XL (Toprol-XL) 12.5 mg 24 hr split tablet Take 12.5 mg by mouth Daily Pt has 25mg tabs and slitting the tab in half = taking 1/2 of 25mgActive atorvastatin (Lipitor) 80 MG tablet Take 80 mg by mouth in the morning.Active sacubitril-valsartan (Entresto) 49-51 MG tablet Take 0.5 tablets by mouth in the morning and 0.5 tablets before bedtime. Pt is to take 1/2 tab in morning and 1/2 tab at night to equal 1 tab per day.Active oxyCODONE-acetaminophen (Percocet) 7.5-325 MG tablet Take 1 tablet by mouth in the morning and 1 tablet before bedtime.Active ARIPiprazole (Abilify) 30 MG tablet Take 30 mg by mouth Daily08/23/2023ctive fluticasone (Flonase) 50 MCG/ACT nasal spray Indications:Seasonal allergiesAdminister 2 sprays into each nostril Daily 16 g ctive fenofibrate (Tricor) 145 MG tablet Indications:Mixed hyperlipidemiaTake 1 tablet (145 mg) by mouth Daily 30 tablet ctive senna-docusate sodium (Senokot-S) 8.6-50 MG tablet Take 1 tablet by mouth Daily OTC PO dailyActive benztropine (Cogentin) 0.5 MG tablet 02/18/2024ctive nitroglycerin (Nitrostat) 0.[address] 1 TABLET UNDER TONGUE FOR CHEST PAIN. CALL 911 IF NO IMPROVEMENT AFTER 5 MIN. REPEAT DOSE TWICE IF MQMYUZ9012/18/2023ctive Vraylar 6 MG capsule Take 1 capsule by mouth Daily02/27/2024ctive FLUoxetine (PROzac) 40 MG capsule Take 40 mg by mouth Daily5Active amLODIPine (Norvasc) 10 MG tablet Indications:Primary hypertensionTake 1 tablet (10 mg) by mouth Daily 90 tablet 5Active FLUoxetine (PROzac) 20 MG capsule Take 20 mg by mouth Daily TAKE 1 CAPSULE BY MOUTH ONCE DAILY TAKE WITH 40 MG FOR A TOTAL OF 60 MG DAILY5Active glucose blood (True Metrix Blood Glucose Test) test strip Indications:Type 2 diabetes mellitus without complication, without long-term current use of insulin ([facility])Checking bg levels once a day 100 strip 5Active Lancets 33G [facility] [place] Indications:Type 2 diabetes mellitus without complication, without long-term current use of insulin ([facility])Checking bg levels once a day 100 each 5Active tiZANidine (Zanaflex) 4 MG tablet Indications:Muscle spasmTake 1 tablet (4 mg) by mouth every 8 (eight) hours if needed for muscle spasms 90 tablet 5Active rOPINIRole (Requip) 0.25 MG tablet Indications:Restless leg syndromeTake 1 tablet (0.25 mg) by mouth at bedtime 90 tablet 5Active Blood Glucose Monitoring Suppl (True Metrix Meter) w/Device kit Indications:Type 2 diabetes mellitus without complication, without long-term current use of insulin ([facility])USE 1 TO CHECK GLUCOSE ONCE DAILY 1 kit 5Active gabapentin (Neurontin) 600 MG tablet Indications:Restless leg syndromeTake 1 tablet (600 mg) by mouth 2 (two) times a day as needed (RLS) 60 tablet 5Active Tirzepatide (Mounjaro) 7.5 MG/0.5ML solution auto-injector Indications:Type 2 diabetes mellitus with other circulatory complications (HCC) INJECT 7.5 MG SUBCUTANEOUSLY ONCE A WEEK 6 mL 5Active Active Problems ProblemNoted DateDiagnosed DateLumbar facet oyghhcetmwp10/21/2025Encounter for wellness examination in adult09/03/2024 Assessment & Plan (09/03/2024 6:40 AM EDT): Reviewed Ht/Wt/BMI Recommend eye exam yearly Recommend dental exams twice a year Balance work/leisure activities Exercises is recommended most days of the week (appropriate as chronic conditions allow) Follow up yearly and prn Acute foot pain, left5Acute left ankle pain07/15/2024Type 2 diabetes mellitus with other circulatory hbwmjrrobnnuw34/05/2024 Assessment & Plan (06/16/2024 9:36 AM EST): [...] her mounjaro. Class 2 severe obesity due to excess calories with serious comorbidity and body mass index (BMI) of36.0 to 36.9 in adult12/05/2023 Assessment & Plan (09/03/2024 10:04 AM EDT): [...] up the good work Adenomatous polyp of cecum11/12/2023iverticulosis large intestine w/o perforation or abscess w/o nnlwrupx70/29/2024cute kidney injury superimposed on CKD10/24/2023 Assessment & Plan (10/24/2023 11:01 AM EDT): Continue with Nephrology Mms[place]70/10/1894Wkzclsaxdmwie24/10/2024Iron stqaxmiooy92/10/2024Vitamin B12 lbdvdyidku70/10/2024Vitamin D ilrvaadptm87/10/2024nemia of renal disease 10/24/2023estless leg hvcbuhzk91/09/2024 Assessment & Plan (03/06/2024 6:41 AM EST): Continue mirapex Assessment & Plan (12/05/2023 9:11 AM EDT): Continue mirapex Assessment & Plan (10/24/2023 11:00 AM EDT): Will trial mirapex, 0.25mg Fu in 6 weeks She may want to reach out to her psych provider too to see if this is related to other meds History of colon irvluc9709/14/2023Stage 3b chronic kidney agnfndf8009/13/2023 Assessment & Plan (09/03/2024 6:37 AM EDT): Is established with nephrology for mgmt/monitoring Continue to keep blood pressure and DM at goal Assessment & Plan (03/06/2024 6:44 AM EST): Is established with nephrology for mgmt/monitoring Continue to keep blood pressure and DM at goal Assessment & Plan (09/13/2023 11:10 AM EDT): Continue with nephrology Displacement of lumbar intervertebral disc with phmxrtdpxyavg90/28/2024 Hypertensive cdjikfdkwqs38/28/2024History of PTCA09/11/2023Headache, tension-type09/11/2023Muscle spasm07/24/20232642Jqobhqli48/18/1745Zosugwm71/18/2024 Irritable bowel syndrome with ivpmtosw13/18/2024H/O bariatric kivjxmq2107/02/2023 Abdominal wall esqdjq0607/02/20237739Jkmnguicbfohzxk61/18/2024Lumbar disc herniation 07/02/2023egenerative disc disease, wmdvtt8207/02/2023Elevated liver enzymes 07/02/2023Encounter for screening mammogram for malignant neoplasm of breast 05/03/2023olon cancer qibkzsxtn62/18/2024Heel pain, iwpmlnhuy33/18/2024 Assessment & Plan (05/03/2023 1:46 PM EST): Would like a referral to podiatry [facility] if possible Spinal stenosis of thoracolumbar dleteg8504/30/2023Spinal stenosis of lumbar region at multiple ufljjq1204/30/2023 Assessment & Plan (03/06/2024 9:57 AM EST): Continues with pain mgmt for oral medications and treatment plan [facility] pain mgmt, ?? Possible spinal cord stimulator Will complete her FMLA URIEL (obstructive sleep apnea)04/30/2023 Assessment & Plan (03/06/2024 9:58 AM EST): Not using this, mask broke and they will give new mask Assessment & Plan (10/24/2023 11:00 AM EDT): Continue with PAP Assessment & Plan (07/02/2023 9:59 AM EDT): Is now wearing her PAP approx 6 hours per night Does have trouble longer d/t nocturia Fhfgucstcegn99/15/2024 Assessment & Plan (09/03/2024 6:34 AM EDT): [...] at goal, no changes in meds Coronary zhlmqrphnelvmzqs38/15/7178Sgjbhcthpbf91/15/2024GERD (gastroesophageal reflux disease)04/30/2023 Assessment & Plan (09/03/2024 6:35 AM EDT): stable Assessment & Plan (05/03/2023 1:44 PM EST): stable Microscopic /15/2024Lower extremity edema04/30/2023 Assessment & Plan (03/06/2024 6:44 AM EST): [...] diuretics Check labs Type 2 diabetes mellitus with stage 3a chronic kidney disease, without long-term current use of snntpmk7704/30/2023 Assessment & Plan (11/03/2024 1:31 PM EDT): [...] they have any problems or questions. Sharlene Huertaser control is stable overall. , Discussed dietary changes at length. Encouraged to limit simple carbs and focus more on healthy protein/fat with all meals and snacks. They should also avoidany sugary drinks. , Discussed importance of checking blood glucose regularly and bringing them in to their appointment in order for me to better adjust their medications. , Instructions given today include: Dietary education. Will stop actos due to swelling and doubt it was doing much anyway. Willstay on mounjaro. She really needs to improve [...] (05/03/2023 1:45 PM EST): Check labs Seasonal ebrhxanxd49/15/2024Migraine onsuzllz15/15/5730Wgoesfckghfhrh87/15/2024 Joycogepfvazfp83/15/2024 Assessment & Plan (09/03/2024 6:39 AM EDT): On statin therapy as well as fenofibrate Check labs yearly and prn dose changes Greuuomkzl95/15/2024 Assessment & Plan (07/02/2023 10:04 AM EDT): Continue with psych provider, discussed possibility of pt talking about Spravato to the provider asa possible consideration Chronic diastolic heart vxzpoqp0708/26/2015 Assessment & Plan (09/03/2024 6:37 AM EDT): [...] 8 d/t recent episode of anuria Bipolar /07/2012 Assessment & Plan (03/06/2024 6:47 AM EST): Continue with psych for management of her mental health Assessment & Plan (10/24/2023 7:05 AM EDT): Continue with psych for management of her mental health Generalized anxiety chbhqzum24/07/2012 Assessment & Plan (03/06/2024 6:47 AM EST): Continue with psych for management of symptoms and meds Resolved Problems ProblemNoted DateDiagnosed DateResolved DateOther intervertebral disc displacement, thoracolumbar pbzfyg20/5Acute non-recurrent ccfyauqkhszz46/21/202405/ Assessment & Plan (03/06/2024 9:59 AM EST): Finish atb, fluids, fu if not better Left lower quadrant abdominal pain/ Assessment & Plan (12/05/2023 9:10 AM EDT): Will check xray to r/o perforation Will treat for diverticulitis: cipro and flagyl Fu if not better Advised no ETOH, as well as NO tizanidine while taking cipro Increase fiber Denies any fever, chills, NV Will call office if not better after atb If conditions worsens go to the ER LLQ pain/ntibiotic-induced yeast iqtkrxgcw03/19/2024 09/03/2024Dental qwtetgifb43 Assessment & Plan (09/20/2023 2:42 PM EDT): [...] fever/no improvement in her symptoms 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 Check labs Fvhmrm03/epressive eobjlwnf91 Encounters DateTypeDepartmentCare IkaqOqhyqoildjw34/26/2025Telephone [facility] [address] [place] [phone] Jr. Altaf Santillan, 03/04/2025 11:50 AM ESTAncillary Procedure [facility] [address] [place] [phone] 03/04/2025 11:00 AM ESTOffice Visit [facility] [address] [place] [phone] Jr. Altaf Santillan, DO Sprain of right rotator cuff capsule, initial encounter (Primary Dx); Acute pain of left sakblftr71/19/2025amboo flowsheet [facility] [address] [place] [phone] Jr. Altaf Santillan, 03/04/20253155Niehdc11/18/5225Nznglb54/01/2025Refill [facility] [address] [place] [phone] Marya Loya, DO Type 2 diabetes mellitus with other circulatory complications (HCC)from Last 3 Months Immunizations ImmunizationAdministration DatesNext DueHep A / Hep B007/03/2022,01/20/2022, 12/19/2021Influenza, Recombinant, injectable, preservative free01/24/2024 Influenza, injectable, aahwutychgtz33/18/2019,03/15/2018Influenza, injectable, quadrivalent, preservative free02/09/2023,12/19/2021,03/10/2020,01/31/2019, 03/15/2018,02/03/2017Influenza, seasonal, gmdyafdudp78/02/2020Pfizer Purple Cap SARS-CoV-2 Ofkicdamvso16/01/2022,05/16/2021,09/06/2020,08/17/2020,08/16/2020 Pneumococcal Conjugate PCV 13004/16/2011Pneumococcal Polysaccharide PPSV23 03/10/2020,02/16/2020,01/14/19978199HAFS-YAA-3 (COVID-19) vaccine, mRNA, spike protein, LNP, PF, saravanan-sucrose, 30 mcg/0.3 mL01/24/2024Tdap12/19/2021Zoster, Qztidprnvcn59/20/2023,12/19/2021 Family History Medical HistoryRelationNameCommentsHeart diseaseBrotherMomHeart attackFatherDad Heart diseaseFatherDadCancerMotherMomDepressionMotherMomStrokeMotherMomVision lossMotherMomDiabetesSisterBrenHypertensionSisterBrenKidney diseaseSisterBren RelationNameStatusCommentsBrotherMomAliveFatherDadDeceased (Age 55)MotherMom (Age 73)OtherSiblingsAliveSisterBrenAlive Social History Tobacco UseTypesPacks/DayYears UsedDateSmoking Tobacco: NeverPassive Smoke Exposure: NeverSmokeless Tobacco: Never Tobacco Cessation:Counseling Given: Not Answered Alcohol UseStandard Drinks/WeekCommentsNever0 (1 standard drink = 0.6 oz pure alcohol)caffeine: coffee, soda/sznR3444 Health LiteracyAnswerDate RecordedHow often do you need to have someone help you when you read instructions, pamphlets, or other written material from your doctor or pharmacy?Never 11/18/2024Humiliation, Afraid, Rape, and Kick questionnaireAnswerDate Recorded Within the last year, have you been afraid of your partner or ex-partner?No 11/18/2024Within the last year, have you been humiliated or emotionally abused in other ways by your partner or ex-partner?No11/18/2024Within the last year, have you been kicked, hit, slapped, or otherwise physically hurt by your partner or ex-partner?No11/18/2024Within the last year, have you been raped or forced to have any kind of sexual activity by your partner or ex-partner?No11/18/2024 Social Connection and Isolation PanelAnswerDate RecordedIn a typical week, how many times do you talk on the phone with family, friends, or neighbors?More than three times a week11/18/2024How often do you get together with friends or relatives?Once a week11/18/2024How often do you attend holiness or gnosticist services?Never11/18/2024Do you belong to any clubs or organizations such as holiness groups, unions, fraternal or athletic groups, or school groups?No 11/18/2024How often do you attend meetings of the clubs or organizations you belong to?Never11/18/2024re you , , , , never , or living with a partner?Never kmjndft6011/18/2024UDIT-CAnswerDate RecordedQ1: How often do you have a drink containing alcohol?Never11/18/2024Q2: How many drinks containing alcohol do you have on a typical day when you are drinking?Patient does not drink11/18/2024Q3: How often do you have six or more drinks on one occasion?Never11/18/2024Overall Financial Resource Strain (CARDIA) AnswerDate RecordedHow hard is it for you to pay for the very basics like food, housing, medical care, and heating?Hard11/18/2024PHQ-2AnswerDate RecordedPatient Health Questionnaire-2 Kzdze580Finamerican fork hospital [place] of Occupational Health - Occupational Stress QuestionnaireAnswerDate RecordedDo you feel stress - tense, restless, nervous, or anxious, or unable to sleep at night because your mind is troubled all the time - these days?To some llgcgy4911/18/2024Exercise Vital SignAnswerDate RecordedOn average, how many days per week do you engage in moderate to strenuous exercise (like a brisk walk)?0 days11/18/2024On average, how many minutes do you engage in exercise at this level?0 min11/18/2024Hunger Vital SignAnswerDate RecordedWithin the past 12 months, you worried that your food would run out before you got the money to buymore.Often true11/18/2024 Within the past 12 months, the food you bought just didn't last and you didn't have money to get more.Often true11/18/2024PRAPARE - TransportationAnswerDate RecordedIn the past 12 months, has lack of transportation kept you from medical appointments or from getting medications?No11/18/2024In the past 12 months, has lack of transportation kept you from meetings, work, or from getting things needed for daily living?No11/18/2024Housing Stability Vital SignAnswerDate RecordedIn the last 12 months, was there a time when you were not able to pay the mortgage or rent on time?No05/02/2023In the last 12 months, how many places have you lived?In the last 12 months, was there a time when you did not have a steady place to sleep or slept in [facility] (including now)?Yes 05/02/2023Housing Stability Vital SignAnswerDate RecordedIn the last 12 months, was there a time when you were not able to pay the mortgage or rent on time?No 11/18/2024In the past 12 months, how many times have you moved where you were living?t any time in the past 12 months, were you homeless or living in a long term (including now)?No11/18/2024CommentsUnknownSex and Gender InformationValueDate RecordedSex Assigned at BirthNot on fileLegal SexFemale 06/28/2022 7:05 PM EDTGender IdentityNot on fileSexual OrientationNot on file Last Filed Vital Signs Vital SignReadingTime TakenCommentsBlood Jhtpfxth749/7807 9:50 AM EDT Bfwkx815511/03/2024 9:50 AM XYCIugqkonqpik22.7 ??C (98 ??F)11/03/2024 9:50 AM EDT Respiratory Wwff435409/03/2024 9:40 AM EDTOxygen Mcbxmanthu38%11/03/2024 9:50 AM EDTInhaled Oxygen Concentration--Wypwrs141 kg (234 lb)11/03/2024 9:50 AM EDT Wkockp705.2 cm (5' 7 )11/03/2024 9:50 AM EDTBody Mass Index36.65011/03/2024 9:50 AM EDT Plan of Treatment DateTypeDepartmentCare Team (Latest Contact Info)Gxotggfroah99/20/2026 10:15 AM ESTOffice Visit [facility] [address] [place] [phone] Marya Loya, DO [address] [place] [address] Health MaintenanceDue DateLast DoneCommentsCT Upjirstssbrc55/10/1971FIT-DNA 1970FIT1970FOBT1970 5510Ehgeocfbyjwzc21/10/1971HPV/Arqcqv1112/24/2000 Pap Smear/05/20163199Wohcdffkt29/14/202506/, 2COVID-19 Vaccine ( season), 02/09/2023, 05/17/2021, Additional history ufcizgWhsxyuropma12/18/203407/, 11/01/2023, 07/29/2013 Colorectal Cancer Nbvejdaqg84/18/2034Pneumococcal Vaccine: Pediatrics (0 to 5 Years) and At-Risk Patients (6 to 64 Years)Aged Out03/10/2020, 02/16/2020, 04/16/2011, Additional history existsNo longer eligible based on patient's age to complete this topicInfluenza OtcnhvoCedatueun95/09/2025, 01/24/2024, 02/09/2023, Additional history existsCervical Cancer ScreeningDiscontinued Procedures Procedure NamePriorityDate/TimeAssociated DiagnosisCommentsCOLONOSCOPYRoutine 11/01/2023 11:19 AM EDTMM TOMOSYNTHESIS SCREENING BI09/28/2023 10:49 AM EDT from Last 3 Months or Most Recently Relevant to Health Maintenance Results * Colonoscopy (11/01/2023 11:19 AM EDT)Anatomical RegionLateralityModality Endoscopy Narrative Authorizing ProviderResult TypeResult StatusAlbert Bryn Ashley MDENDOSCOPY PROCEDURE ORDERABLESFinal Result * MM TOMOSYNTHESIS SCREENING BI (09/28/2023 10:49 AM EDT)Anatomical Region LateralityModalityOtherSpecimen (Source)Anatomical Location / Laterality Collection Method / VolumeCollection TimeReceived Time09/28/2023 10:49 AM EDT Narrative 09/28/2023 10:50 AM EDT [facility] ?[address] ? [place] [address] ? Mammography Report ? Signed ? Patient: SHARLENE HUMPHREYS A ?MR#: [id number] ?? : 1970 ?Acct:[id number] ?? Age/Sex: 52 / F ?ADM Date: 09/28/23 ?? Loc: MAMMO ? Attending Dr: Janene J Louann IT BUSINESS SYSTEMS ANALYST ? Ordering Physician: Janene Lew IT BUSINESS SYSTEMS ANALYST ?Results: ? Date of Service: 09/28/23 ?Follow Up: ? Procedure(s): MM tomosynthesis screening BI ?? Accession Number(s): [id number] ? cc: Janene Lew IT BUSINESS SYSTEMS ANALYST ? Patient Name: ? SHARLENE HUMPHREYS ? MR#: [id number] ? : 1970 ? Exam Date: 09/28/2023 ?? Ordering Doctor: AGUSTINA Lew CNP ? RADIOLOGY REPORT ? PROCEDURE: ? MM TOMOSYNTHESIS SCREENING BI ? COMPARISON: ? [facility] MAMM SCREEN 3D ORESTES CAD, 12/30/2020. ??MG MAMM SCREEN 3D ORESTES ?? CAD, 03/29/2022. ? INDICATIONS: ? Screening ? Calculator Name ? NCI Breast Cancer Risk Assessment Tool ?? 5 Year Breast Cancer Risk ? 1.10% ?? Lifetime Breast Cancer Risk ? 8.80% ?? Personal Breast Cancer ?No ?? Personal Ovarian Cancer ? No ?? Treatments ? None ?? Family Cancers ? Mother with head/neck cancer at age 73. ? LOCATION: ? [facility] ? BREAST COMPOSITION: ? There are scattered areas of fibroglandular density. ? FINDINGS: ? DIAGNOSTIC CATEGORY 1--NEGATIVE. NO CHANGE FROM COMPARISON ASSESSMENT. ? Scattered benign-appearing calcifications are present. ? RIGHT BREAST: ??No significant suspicious finding. ? LEFT BREAST: ??No significant suspicious finding. ? RECOMMENDATIONS: ? ROUTINE MAMMOGRAM AND CLINICAL EVALUATION IN 12 MONTHS. ? PLEASE NOTE: ??A NORMAL MAMMOGRAM DOES NOT EXCLUDE THE POSSIBILITY OF BREAST ?? CANCER. ??A CLINICALLY SUSPICIOUS PALPABLE LUMP SHOULD BE BIOPSIED. ? Dictated by: Jarrett Weiss MD on 09/28/2023 at 09:56 ? Approved by: Jarrett Weiss MD on 09/28/2023 at 10:49 ? Dictated By: ?Jarrett Weiss M.D. ? Signed By: ?09/28/23 1050 ? DD/ 1049 ? TD/TT: ? Platform Stapler: Procedure Note Radiology, Radiologist, - 09/28/2023 [facility] [place] [id number] Mammography Report Signed Patient: SHARLENE HUMPHREYS AMR#: [id number] : 1970Acct:[id number] Age/Sex: 52 / FADM Date: 09/28/23 Loc: MAMMO Attending Dr: Janene Lew NP Ordering Physician: Janene Lew NPResults: Date of Service: 09/28/23Follow Up: Procedure(s): MM tomosynthesis screening BI Accession Number(s): [id number] cc: Janene Lew NP Patient Name: SHARLENE HUMPHREYS MR#: [id number] : 1970 Exam Date: 09/28/2023 Ordering Doctor: AGUSTINA Lew MACHINE HOSE CUTTER RADIOLOGY REPORT PROCEDURE: MM TOMOSYNTHESIS SCREENING BI [...] 73. LOCATION: [facility] BREAST COMPOSITION: There are scattered areas [...] M.D. Signed By:09/28/23 1050 DD/ 1049 TD/TT: Platform Stapler: Authorizing ProviderResult TypeResult StatusLisa Lew NPCLINISYNC IMAGING Final Result from Last 3 Months or Most Recently Relevant to Health Maintenance Insurance Care Teams Team MemberRelationshipSpecialtyStart DateEnd Date Markel Braxton MD [address] [place] [phone] PCP - GeneralFaprly Xieqxkhg40/5/25 Janene Lew NP [address] [place] [phone] Nurse PractitionerFaprly Iqdtwyeq22/5/25
--- OUTSIDE RECORDS SUMMARY | 2025-03-18 10:48 | XMS_ITS | Clinical Summary ---
Author Organization [facility] Address [address] [place] [address] Care Team Providers Care Order Checker Name Role Phone Janene Lew MD Primary Care Provider [phone] Allergies Active AllergyReactionsCriticalityNoted DateCommentsCephalexinOther,RashHigh 06/27/20139374Smamrqarzkatl52/16/2023Esomeprazole UycnkcvxsHiumy90/09/2017Omeprazole Nausea Only06/22/2016PantoprazoleNausea Only06/22/2016PenicillinsOther,RashHigh 06/27/2013Phenergan MzhvqIogj18/03/2016 seizures PiacrzvvyauhfuxsVqbktCkcu76/14/2014 seizures MfmqwxpubyfcIbybt55/14/2014SulfamethoxazoleOther,LkrnJhcc48/14/2014 Sulfamethoxazole-TrimethoprimOther,QzllNgo5004/03/20147735UygdbcuwNfrwtme46/02/2024 Other Reaction(s): Unknown Reaction Medications MedicationSigDispense QuantityRefillsLast FilledStart DateEnd DateStatus aspirin 81 mg chewable tablet CHEW AND SWALLOW 1 TABLET BY MOUTH ONCE DAILY08/21/2022ctive busPIRone (Buspar) 30 mg tablet Take 20 mg by mouth in the morning and at bedtime.08/22/2022ctive cetirizine 10 mg capsule Take by mouth in the morning.Active cholecalciferol (Vitamin D-3) 1,250 mcg (50,000 unit) capsule Take 1 capsule every week by oral route for 28 days.Active gabapentin (Neurontin) 300 mg capsule Take 300 mg by mouth if needed.10/26/2021ctive pioglitazone (Actos) 45 mg tablet 09/23/2022ctive cariprazine HCl (VRAYLAR ORAL) Take 6 mg by mouth in the morning.Active ferrous sulfate 325 (65 Fe) MG tablet Take 65 mg by mouth with breakfast.Active spironolactone (Aldactone) 25 mg tablet Indications:Essential hypertension,Chronic diastolic heart failure (CMS/HCC)Take 1 tablet (25 mg) by mouth in the morning. 90 tablet 3Active Additional Information Patient not taking.Reported on 10/16/2024 ARIPiprazole (Abilify) 30 mg tablet Take 1 tablet by mouth in the morning.Active magnesium oxide (Mag-Ox) 400 mg (241.3 mg magnesium) tablet Take 1 tablet by mouth in the morning.Active tiZANidine (Zanaflex) 4 mg capsule Take 1 capsule as needed by oral route.Active amLODIPine (Norvasc) 5 mg tablet Indications:Essential hypertensionTake 2 tablets (10 mg) by mouth in the morning. 180 tablet ctive FLUoxetine (PROzac) 10 mg capsule Take by mouth in the morning.08/23/2023ctive nitroglycerin (Nitrostat) 0.4 mg SL tablet Indications:Coronary artery disease involving [place] coronary artery of [place] heart without angina pectorisPlace 1 tablet as needed by sublingual route as needed; if no relief repeat in 5 mins for total of 3 tabs. If no response, seek medical attention/go to the nearest ER 90 tablet 12/18/2023ctive Additional Information Patient not taking.Reported on 12/12/2024 isosorbide mononitrate ER (Imdur) 30 mg 24 hr tablet Indications:Unstable angina pectoris (CMS/HCC)Take 1 tablet (30 mg) by mouth once daily as directed. 90 tablet 302/223710/6Active fenofibrate (Tricor) 145 mg tablet Indications:Hyperlipidemia, unspecified hyperlipidemia typeTake 1 tablet (145 mg) by mouth in the morning. 90 tablet /045621/6Active benztropine (Cogentin) 0.5 mg tablet Take 1 tablet by mouth Twice daily at 6am and 6pm.5Active rOPINIRole (Requip) 0.25 mg tablet Take 0.25 mg by mouth at bedtime.5Active Mounjaro 7.5 mg/0.5 mL pen injector Inject 7.5 mg as directed 1 (one) time per week.5Active sacubitril-valsartan (Entresto) 49-51 mg tablet Indications:Chronic diastolic heart failure (CMS/HCC)Take 1 tablet by mouth two times daily. 180 tablet /920058/6Active atorvastatin (Lipitor) 80 mg tablet Indications:Hyperlipidemia, unspecified hyperlipidemia typeTake 1 tablet (80 mg) by mouth at bedtime. 90 tablet /465372/6Active cyanocobalamin (Vitamin B-12) 2,000 mcg tablet Take 2,000 mcg by mouth in the morning.Active metoprolol succinate XL (Toprol-XL) 25 mg 24 hr tablet Indications:PalpitationsTAKE 1/2 (ONE-HALF) TABLET BY MOUTH IN THE MORNING 45 tablet 5Active Active Problems ProblemNoted DateDiagnosed DateAbnormal cardiovascular stress test11/18/2024 Assessment & Plan (12/12/2024 8:06 AM EDT): - proceed with coronary angiogram, discussed risks including stroke, [place], . Patient agreeable to proceed. No associated orders from this encounter found during lookback period of 72 hours. Lumbar facet jqgdojyynkr77/21/2025Acute left ankle pain07/15/2024Left lower quadrant abdominal pain12/05/2023 Overview (12/11/2023): Last Assessment & Plan: Will check xray to r/o perforation Will treat for diverticulitis: cipro and flagyl Fu if not better Advised no ETOH, as well as NO tizanidine while taking cipro Increase fiber Denies any fever, chills, [place] Will call office if not better after atb If conditions worsens go to the ER Adenomatous polyp of cecum11/12/2023iverticulosis large intestine w/o perforation or abscess w/o pzdhupjx08/29/2024Acute kidney injury superimposed on CKD10/24/2023 Overview (12/11/2023): Last Assessment & Plan: Continue with Nephrology Ynwgjkalcali96/10/6904Tnvkcdtkivept80/10/2024Iron xzptybwxmi44/10/2024Vitamin B12 /10/2024Vitamin D /10/2024estless leg syndrome 10/23/2023 Overview (12/11/2023): Last Assessment & Plan: Continue mirapex Antibiotic-induced yeast iiqsbcxbt17/19/2024ental ohsmzxoxl41/06/2024 Overview (12/11/2023): Last Assessment & Plan: Presents [...] improvement in her symptoms History of colon orlqec9609/14/2023eclining functional crpnku5609/11/2023iabetic nephropathy associated with type 2 diabetes qijedwpq90/28/2024Headache, tension-type09/11/2023Herniation of thoracolumbar intervertebral disc without fvnzybojao71/28/2024History of PTCA09/11/2023Hypertensive eblusfzgctz92/28/2024 Localized edema09/11/2023isplacement of lumbar intervertebral disc with efrhkmuldrvfs37/28/4186Vgfjzbzdednyz77/28/2024Muscle spasm07/24/2023E-coli UTI 07/05/2023bdominal wall caxxpw8507/02/2023egenerative disc disease, lumbar 07/02/2023Elevated liver lfehqok6307/02/2023H/O bariatric ftegihz9807/02/2023History of jbpbfd1707/02/2023 Overview (09/11/2023): Last Assessment & Plan: Check urine, check labs Gtmyatdv78/18/2024Irritable bowel syndrome with nnoqexar65/18/2024Lumbar disc /18/9239Imldqgihpbzvdgx99/18/2024olon cancer fyheiazik64/18/2024 Encounter for screening mammogram for malignant neoplasm of ozvccj2705/03/2023Heel pain, wntzwmnmy37/18/2024 Overview (09/11/2023): Last Assessment & Plan: Would like a referral to podiatry [facility] if possible Plrhup8004/30/20230462Gyrfpcrozzv44/15/2024GERD (gastroesophageal reflux disease) 04/30/2023 Overview (09/11/2023): Last Assessment & Plan: stable Hsvgfnnkcrudtb27/15/2024Lower extremity edema04/30/2023 Overview (09/11/2023): Last Assessment & Plan: Minimal today, cont diuretics Check labs Microscopic jmtkxucim39/15/2024Migraine /15/2024Spinal stenosis of lumbar region at multiple rxgkio8304/30/2023Spinal stenosis of thoracolumbar tipmwf0704/30/2023Stage 3 chronic kidney disease due to type 2 diabetes mellitus 04/30/2023 Overview (09/11/2023): Last Assessment & Plan: Follows with Nephrology, reports she has an upcoming appt with them in the next few weeks Swelling of both lower dfymwsapfkw17/15/2024iastolic obokdtehhmh77/29/2023 03/14/20237075Hjrhkrb77alpitations1 Cardiovascular stress test euqlgiea24/20/8612Cmucidbpxlc93/12/2017Morbid obesity with BMI of 50.0-59.9, adultack pain12/15/2016 Overview (10/03/2022): sees pain mgmt Hip pain, uzccgelow03/01/7067Gxhecfo41/01/9426Ortawhqxn93/01/2017Diabetes cpcefdus64/01/2017Heart nshbpve53Seasonal mbpgmdjih84/01/2017 3Chronic diastolic heart hdnzgaq6708/26/2015Coronary arteriosclerosis in [place] xzkfog5308/26/2015Morbid gttffho12Obstructive sleep apnea plvwpwwy58bdominal pain, other specified site06/27/2013 Irregular bowel jrvznd57hest pain06/09/2013ngina pectoris 03/22/2012Coronary yzpwrjcorfksyrh45/07/2012ipolar bcnputbc70/07/2012Depression 03/22/2012Essential wufjyvzqfbeu69Fibrocystic disease of dqxshc83eneralized anxiety wihwivzs69 Symjjrmrvsavkc52Type 2 diabetes mellitus without complication Encounters DateTypeDepartmentCare JpucZwfakrvbpdb71/16/2025Ref[facility] [address] [place] [phone] Tk Godoy MD Palpitationsfrom Last 3 Months Family History Medical HistoryRelationNameCommentsHeart attackFatherCancerMotherRelationName StatusCommentsFatherDeceasedMotherDeceased Social History Tobacco UseTypesPacks/DayYears UsedDateSmoking Tobacco: NeverSmokeless Tobacco: Never Tobacco Cessation:Counseling Given: No Alcohol UseStandard Drinks/WeekCommentsNot Currently0 (1 standard drink = 0.6 oz pure alcohol)UT Safety & EnvironmentAnswerDate RecordedFear of Current or Ex-PartnerNot on file06/07/2023Emotionally AbusedNot on file06/07/2023hysically AbusedNot on file06/07/2023Sexually AbusedNot on file06/07/2023hysically or Sexually AbusedNot on file06/07/2023CommentsUnknownSex and Gender InformationValueDate RecordedSex Assigned at RxmmdQfxxnj76/29/2025 6:54 AM EDT Legal NfdMqrqpd44/29/2022 10:36 PM EDTGender DfgwqsbcLzxlkj49/29/2025 6:54 AM EDTSexual OrientationHeterosexual or Ixottxac50/29/2025 6:54 AM EDT Last Filed Vital Signs Vital SignReadingTime TakenCommentsBlood Ceahiytj680/64012/12/2024 11:30 AM EDT Nuofw456212/12/2024 11:30 AM EDTTemperature--Respiratory Yqdr947212/12/2024 11:30 AM EDTOxygen Ydktupdkwm72%12/12/2024 11:30 AM EDTInhaled Oxygen Concentration-- Qjcdmz081 kg (225 lb)12/12/2024 7:18 AM XEAYqfjxs615.6 cm (5' 4 )12/12/2024 7:18 AM EDTBody Mass Index38.62012/12/2024 7:18 AM EDT Plan of Treatment Health MaintenanceDue DateLast DoneCommentsCT Hawrlujvabtf45/10/1971Diabetes: Hemoglobin A1C1970FIT-DNA1970FIT1970FOBT1970 Qbrhqpldwuqbv91/10/1971Diabetes: Retinopathy Tyqniwqlu10/10/1981Depression Egwrkroyd66/10/1983Pap Smear12/25/1991Cervical Cancer Oxbkhxhcq96/10/2001 HPV/Quloez4812/24/20003202Iownuwbnr89/10/2011COVID-19 Vaccine ( season) , 02/09/2023, 05/16/2021, Additional history existsInfluenza Vaccine (#1), 02/09/2023, 12/19/2021, Additional history existsPneumococcal Vaccine: Pediatrics (0 to 5 Years) and At-Risk Patients (6 to 64 Years) (3 of 3 - PCV20 or PCV21)5105/10/2019, 02/16/2020, 04/16/2011, Additional history existsAdult Ugvpwhu78/5931Coxhneyumox98/18/2034 11/01/2023, 07/29/2013Colorectal Cancer Fjfofnzvu81/18/2034Hepatitis B Vaccines Oysqepcxs15/20/2023, 01/20/2022, 12/19/2021Zoster TnfvkhtgQewzglkej22/20/2023, 12/19/2021HIB VaccinesAged OutNo longer eligible based on patient's age to complete this topicHPV VaccinesAged OutNo longer eligible based on patient's age to complete this topicIPV VaccinesAged OutNo longer eligible based on patient's age to complete this topicMeningococcal B VaccineAged OutNo longer eligible based on patient's age to complete this topicMeningococcal VaccineAged OutNo longer eligible based on patient's age to complete this topicRotavirus Vaccines Aged OutNo longer eligible based on patient's age to complete this topic Insurance Advance Directives * Full Code (Latest Code Status on File) Date ActivatedDate InactivatedComments12/12/2024 9:28 AM12/12/2024 1:55 PM Care Teams Team MemberRelationshipSpecialtyStart DateEnd Date Janene Lew MD [address] [place] [address] [place] [address]/13/23
--- OUTSIDE RECORDS SUMMARY | 2025-03-18 10:48 | XMS_ITS | Encounter Summary ---
Author Organization [facility] Address [address] [facility] [place] [address] Care Team Providers Care Deck Molder Name Role Phone Markel Braxton MD Primary Care Provider Janene Lew NP Unavailable [phone] Encounter Details DateTypeDepartmentCare Team (Latest Contact Info)Xlzlatafuzi82/19/2025amboo flowsheet [facility] [address] [facility] [address] [place] [phone] Jr. Altaf Santillan, DO [address] [place] [address] Social History Tobacco UseTypesPacks/DayYears UsedDateSmoking Tobacco: NeverPassive Smoke Exposure: NeverSmokeless Tobacco: NeverAlcohol UseStandard Drinks/WeekComments Never0 (1 standard drink = 0.6 oz pure alcohol)caffeine: coffee, soda/uzdF2986 Health LiteracyAnswerDate RecordedHow often do you need [...] sexual activity by your part ner or ex-partner?11/18/2024Social Connection and Isolation PanelAnswerDate RecordedIn a typical week, how many times do you talk on the phone with family, friends, or neighbors?More than three times a week11/18/2024How often do you get together with friends or relatives?Once a week11/18/2024How often do you attend orthodox or taoism services?Never11/18/2024Do you belong to any clubs or organizations such as orthodox groups, unions, fraSolmentum or athletic groups, or school groups?No11/18/2024How often do you attend meetings of the clubs or organizations you belong to?Never11/18/2024re you , , , , never , or living with a partner?Never bxcqxck6611/18/2024 AUDIT-CAnswerDate RecordedQ1: How often do you have [...] care, and heating?Hard11/18/2024PHQ-2 AnswerDate RecordedPatient Health Questionnaire-2 Hnmon343[facility] [place] of Occupational Health - Occupational Stress QuestionnaireAnswerDate RecordedDo you feel stress - tense, restless, nervous, or anxious, or unable to sleep at night because yourmind is troubled all the time - these days?To some ujqedj7211/18/2024Exercise Vital SignAnswerDate RecordedOn average, how many days per week do you engage in moderate to strenuous exercise (like a brisk walk)?0 days11/18/2024On average, how many minutes do you engage in exercise at this level?0 min08/05/2025Hunger Vital SignAnswerDate RecordedWithin the past 12 months, [...] steady place to sleep or slept in [facility] (including now)?Yes05/02/2023Housing Stability Vital SignAnswerDate RecordedIn the last 12 months, was there a time when you were not able to pay the mortgage or rent on time?No11/18/2024In the past 12 months, how many times have you moved where you were living?t any time in the past 12 months, were you homeless or living in a custodial (including now)?No11/18/2024 CommentsUnknownSex and Gender InformationValueDate RecordedSex Assigned at BirthNot on fileLegal DirXvfaog40/15/2023 7:05 PM EDTGender IdentityNot on fileSexual OrientationNot on filedocumented as of this encounter Plan of Treatment DateTypeDepartmentCare Team (Latest Contact Info)Agyfepnxily98/20/2026 10:15 AM ESTOffice Visit [facility] [address] [place] [phone] Marya Loya, [address] [place] [id number] documented as of this encounter Visit Diagnoses Not on filedocumented in this encounter Additional Health Concerns AssessmentNoted TimePHQ-9 Depression Total Score: 16005/03/2023 1:18 PM EST documented as of this encounter Care Teams Team MemberRelationshipSpecialtyStart DateEnd Date Markel Braxton MD [address] [place] [phone] PCP - GeneralFamily Nhutflmt37/5/25 Janene Lew NP [address] [place] [phone] Nurse PractitionerFaholden hospital Kjxktmfx72/5/25documented as of this encounter
--- OUTSIDE RECORDS SUMMARY | 2025-03-18 10:48 | XMS_ITS | Encounter Summary ---
Author Organization [facility] Address [address] [place] [address] Care Team Providers Care Mechanical Technical Service Specialist Name Role Phone Markel Braxton MD Primary Care Provider [phone] Janene Lew NP Unavailable [phone] Encounter Details DateTypeDepartmentCare Team (Latest Contact Info)Izrfuflpeqr64/19/2025Travel Social History Tobacco UseTypesPacks/DayYears UsedDateSmoking Tobacco: NeverPassive Smoke Exposure: NeverSmokeless Tobacco: NeverAlcohol UseStandard Drinks/WeekComments Never0 (1 standard drink = 0.6 oz pure alcohol)caffeine: coffee, soda/mwrB4267 Health LiteracyAnswerDate RecordedHow often do you need [...] relatives?Once a week11/18/2024How often do you attend islam or sabianism services?Never11/18/2024Do you belong to any clubs or organizations such as islam groups, unions, fraternal or athletic groups, or school groups?No11/18/2024How often do you attend meetings of the clubs or organizations you belong to?Never11/18/2024re you , , , , never , or living with a partner?Never indxzof8211/18/2024 AUDIT-CAnswerDate RecordedQ1: How often do you have [...] care, and heating?Hard11/18/2024PHQ-2 AnswerDate RecordedPatient Health Questionnaire-2 Iedgn803[facility] [place] of Occupational Health - Occupational Stress QuestionnaireAnswerDate RecordedDo you feel stress - tense, restless, nervous, or anxious, or unable to sleep at night because yourmind is troubled all the time - these days?To some naaiww3411/18/2024Exercise Vital SignAnswerDate RecordedOn average, how many days [...] were you homeless or living in a mcc (including now)?No11/18/2024 CommentsUnknownSex and Gender InformationValueDate RecordedSex Assigned at BirthNot on fileLegal RrfTkekpn21/15/2023 7:05 PM EDTGender IdentityNot on fileSexual OrientationNot on filedocumented as of this encounter Plan of Treatment DateTypeDepartmentCare Team (Latest Contact Info)Dwiiyysirph78/20/2026 10:15 AM ESTOffice Visit [facility] [address] [place] [phone] Marya Loya, [address] [place] [address] documented as of this encounter Visit Diagnoses Not on filedocumented in this encounter Additional Health Concerns AssessmentNoted TimePHQ-9 Depression Total Score: 16005/03/2023 1:18 PM EST documented as of this encounter Care Teams Team MemberRelationshipSpecialtyStart DateEnd Date Markel Braxton MD [address] [place] [phone] PCP - GeneralFancly Mnjdwklb82/5/25 Janene Lew NP [address] [place] [phone] Nurse PractitionerFasaint john's hospital Cpggglzu54/5/25documented as of this encounter
--- OUTSIDE RECORDS SUMMARY | 2025-03-18 10:48 | XMS_ITS | Encounter Summary ---
Author Organization [facility] Address [address] [place] [address] Care Team Providers Care Ortho Tech Name Role Phone Markel Braxton MD Primary Care Provider [phone] Janene Lew NP Unavailable [phone] Reason for Referral * Imaging (Routine) - AuthorizedSpecialtyDiagnoses / ProceduresReferred By ContactReferred To ContactRadiology Diagnoses Internal derangement of left shoulder Procedures MR shoulder left wo IV contrast Jr. Altaf Santillan, [address] [facility] [address] [place] [address] Phone: tel: fax: [facility] fax: Referral IDStatusReasonStart DateExpiration DateVisits RequestedVisits [id number]/26/20255/25/202611 Encounter Details DateTypeDepartmentCare Team (Latest Contact Info)Zxnjutbwrmr40/26/2025Telephone [facility] [address] [facility] [address] [place] [phone] Jr. Altaf Santillan DO [address] [facility] [address] [place] [address] Social History Tobacco UseTypesPacks/DayYears UsedDateSmoking Tobacco: NeverPassive Smoke Exposure: NeverSmokeless Tobacco: NeverAlcohol UseStandard Drinks/WeekComments Never0 (1 standard drink = 0.6 oz pure alcohol)caffeine: coffee, soda/ejpK3346 Health LiteracyAnswerDate RecordedHow often do you need [...] relatives?Once a week11/18/2024How often do you attend latter-day or baptism services?Never11/18/2024Do you belong to any clubs or organizations such as latter-day groups, unions, fraternal or athletic groups, or school groups?No11/18/2024How often do you attend meetings of the clubs or organizations you belong to?Never11/18/2024re you , , , , never , or living with a partner?Never daoofts3811/18/2024 AUDIT-CAnswerDate RecordedQ1: How often do you have [...] care, and heating?Hard11/18/2024PHQ-2 AnswerDate RecordedPatient Health Questionnaire-2 Cgncv792Finkane [facility] [place] of Occupational Health - Occupational Stress QuestionnaireAnswerDate RecordedDo you feel stress - tense, restless, nervous, or anxious, or unable to sleep at night because yourmind is troubled all the time - these days?To some qbjmbt0111/18/2024Exercise Vital SignAnswerDate RecordedOn average, how many days [...] were you homeless or living in a skilled nursing (including now)?No11/18/2024 CommentsUnknownSex and Gender InformationValueDate RecordedSex Assigned at BirthNot on fileLegal DzhIsjenn69/15/2023 7:05 PM EDTGender IdentityNot on fileSexual OrientationNot on filedocumented as of this encounter Miscellaneous Notes * Telephone Encounter - JANICE Alfaro - 03/11/2025 9:10 AM EST Placed order and faxed to [facility]. They will contact her to schedule. * Telephone Encounter - Daisy Urrutia - 03/11/2025 9:01 AM EST [facility] 03/04/25 L Shoulder pain/poss RCT Patient called as she has not heard anything regarding her MRI Was to be ordered at [facility], I do not see that the referral/order was sent Requesting [facility] She is scheduled to have a spinal implant next week and was hoping to have completed by then. documented in this encounter Plan of Treatment DateTypeDepartmentCare Team (Latest Contact Info)Inzfbkuvurp21/20/2026 10:15 AM ESTOffice Visit [facility] [address] [place] [address] Marya Loya, [address] [place] [address] NameTypePriorityAssociated DiagnosesOrder ScheduleMR shoulder left wo IV contrastImagingRoutine Internal derangement of left shoulder Expected: 03/11/2025 (Approximate), Expires: 03/11/2026documented as of this encounter Visit Diagnoses Diagnosis Internal derangement of left shoulder documented in this encounter Additional Health Concerns AssessmentNoted TimePHQ-9 Depression Total Score: 16005/03/2023 1:18 PM EST documented as of this encounter Care Teams Team MemberRelationshipSpecialtyStart DateEnd Date Markel Braxton MD [address] [place] [phone] [facility] - [facility] Fljxaccv50/5/25 Janene Lew NP [address] [place] [phone] Nurse PractitionerFamorton hospital Fpwuqvkg91/5/25documented as of this encounter
--- OUTSIDE RECORDS SUMMARY | 2025-03-18 11:01 | XMS_ITS | CCD ---
Author Organization [facility] Care Team Providers Care Dentures Lab Technician Name Role Phone Peng Merino Admitting Unavailable Peng Merino Attending Unavailable GEOVANNI BRUNNER Primary Care Unavailable HAMMAD LING Referring Unavailabl e [place] Procedure Practitioner Unavailab TK [place] Surgeon Unavailable Christian Hamilton Unavailable Janene Lew Primary Care Provider MD Christian Hamilton Attending Provider ELIER Bolivar Emma Attending Provider Emma Bolivar Unavailable Halle Mac Unavailable Janene Lew Primary Care Provider NERISSA Hernandez Emergency Provider Ivan Sams Unavailable AICHHOLZ, MANAGER FRAUD JANENE Consulting Unavailable AICHHOLZ, MANAGER FRAUD JANENE Attending Unavailable AICHHOLZ, MANAGER FRAUD JANENE Admitting Unavailable AICHHOLZ, MANAGER FRAUD JANENE Primary Care Unavailable AICHHOLZ, MANAGER FRAUD JANENE Consulting Unavailable AICHHOLZ, MANAGER FRAUD JANENE Attending Unavailable AICHHOLZ, MANAGER FRAUD JANENE Admitting Unavailable AICHHOLZ, MANAGER FRAUD JANENE Primary Care Unavailable AICHHOLZ, MANAGER FRAUD JANENE Primary Care Unavailable AICHHOLZ, MANAGER FRAUD JANENE Consulting Unavailable AICHHOLZ, MANAGER FRAUD JANENE Admitting Unavailable AICHHOLZ, MANAGER FRAUD JANENE Attending Unavailable DR MYRIAM SAMANIEGO Attending Unavailable DR MYRIAM SAMANIEGO Admitting Unavailable DR MYRIAM SAMANIEGO Consulting Unavailable AICHHOLZ, MANAGER FRAUD JANENE Primary Care Unavailable AICHHOLZ, MANAGER FRAUD JANENE Primary Care Unavailable DWAYNE FRIEDMAN Admitting Unavailable DWAYNE FRIEDMAN Attending Unavailable CLEMENT PLUMMER Consulting Unavailable Wan Jenkins Consulting Unavailable AICHHOLZ, MANAGER FRAUD JANENE Primary Care Unavailable EVON TRAMMELL Attending Unavailable JP, EVON Admitting Unavailable EVON TRAMMELL Consulting Unavailable LUZ COELLO Consulting Unavailable NATHAN COLE Consulting Unavailable LIN GARRETT Consulting Unavailable AICHHOLZ, MANAGER FRAUD JANENE Primary Care Unavailable AICHHOLZ, MANAGER FRAUD JANENE Admitting Unavailable AICHHOLZ, MANAGER FRAUD JANENE Attending Unavailable DR ALEX WEISS V Consulting Unavailable AICHHOLZ, MANAGER FRAUD JANENE Consulting Unavailable AICHHOLZ, MANAGER FRAUD JANENE Consulting Unavailable AICHHOLZ, MANAGER FRAUD JANENE Attending Unavailable AICHHOLZ, MANAGER FRAUD JANENE Admitting Unavailable AICHHOLZ, MANAGER FRAUD JANENE Primary Care Unavailable DR KATHY LOBATO Consulting Unavailable AICHHOLZ, MANAGER FRAUD JANENE Attending Unavailable AICHHOLZ, MANAGER FRAUD JANENE Admitting Unavailable AICHHOLZ, MANAGER FRAUD JANENE Primary Care Unavailable DR ALEX WEISS V Consulting Unavailable AICHHOLZ, MANAGER FRAUD JANENE Consulting Unavailable AICHHOLZ, MANAGER FRAUD JANENE Consulting Unavailable AICHHOLZ, MANAGER FRAUD JANENE Primary Care Unavailable AICHHOLZ, MANAGER FRAUD JANENE Attending Unavailable AICHHOLZ, MANAGER FRAUD JANENE Admitting Unavailable AICHHOLZ, MANAGER FRAUD JANENE Primary Care Unavailable AICHHOLZ, MANAGER FRAUD JANENE Admitting Unavailable AICHHOLZ, MANAGER FRAUD JANENE Consulting Unavailable AICHHOLZ, MANAGER FRAUD JANENE Attending Unavailable DR KATHY LOBATO Consulting Unavailable AICHHOLZ, MANAGER FRAUD JANENE Primary Care Unavailable BAKHOUS, AZIZ Admitting Unavailable BAKHOUS, AZIZ Attending Unavailable AICHHOLZ, MANAGER FRAUD JANENE Attending Unavailable AICHHOLZ, MANAGER FRAUD JANENE Admitting Unavailable AICHHOLZ, MANAGER FRAUD JANENE Primary Care Unavailable AICHHOLZ, MANAGER FRAUD JANENE Primary Care Unavailable AICHHOLZ, MANAGER FRAUD JANENE Consulting Unavailable AICHHOLZ, MANAGER FRAUD JANENE Attending Unavailable AICHHOLZ, MANAGER FRAUD JANENE Admitting Unavailable DR KATHY LOBATO Consulting Unavailable AICHHOLZ, MANAGER FRAUD JANENE Primary Care Unavailable AICHHOLZ, MANAGER FRAUD JANENE Admitting Unavailable AICHHOLZ, MANAGER FRAUD JANENE Attending Unavailable AICHHOLZ, MANAGER FRAUD JANENE Consulting Unavailable AICHHOLZ, MANAGER FRAUD JANENE Primary Care Unavailable DOLORES STRATTON Attending Unavailable AMBER ., DOLORES Admitting Unavailable RAMIREZ ., MR DELIA Consulting Unavailable AMBER ., DOLORES Consulting Unavailable ALEX AVINA Consulting Unavailable AICHHOLZ, AGUSTINA JANENE Primary Care Unavailable EVON TRAMMELL Attending Unavailable EVON TRAMEMLL Admitting Unavailable EVON TRAMMELL Consulting Unavailable Reddhomkar Janene J Primary Care Provider [phone] MD Valdemar Alonso Attending Provider MD Fauzia Huffman Attending Provider UnavailMD Halle Felton Referring Provider MARKEL HAQ Primary Care Unavailable Janene Lew J Attending Unavailable Aichholrufus, Janene J Admitting Unavailable Aichomkar, Janene J Primary Care Provider MD Fauzia Huffman Attending Provider UnavailMD Halle Felton Referring Provider MD Halle Mac Attending Provider Janene Lew Primary Care Provider MD Valdemar Alonso Attending Provider MD Alma Deng Admit Provider [phone] MD Emmanuel [facility] Other Provider MD Fernando Rosenberg Attending Provider MD Valdemar Alonso Attending Provider MD Valdemar Alonso Attending Provider MD Ban Clemente Attending Provider [phone] Markel Haq MD Primary Care Provider Louann CONFIGURATION MANAGEMENT ADVISOR, Janene Unavailable MARYA CASTORENA Attending Unavailable AICJANENE VERNON Attending Unavailable BAN ARTIS Attending Unavailable MARYA CASTORENA Attending Unavailable LOUANN, JANENE Referring Unavailable JANENE LEW Attending Unavailable MARYA CASTORENA Attending Unavailable MARYA CASTORENA Attending Unavailable AICHHOLRufus, JANENE Attending Unavailable Aichholrufus, Janene J Primary Care Provider [phone] Valdemar Alonso MD Attending Provider Bubba SHARMA, Halle Attending Provider ELTAHAWY, EHAB Attending Unavailable ELTAHAWY, EHAB Attending Unavailable ELTAHAWY, EHAB Admitting Unavailable ELTAHAWY, EHAB Attending Unavailable ELTAHAWY, EHAB Referring Unavailable ELTAHAWY, EHAB Referring Unavailable Kanani DMD, Joshua Unavailable Unavailable Aicsaulo Janene J Attending Provider Kanani DMD, Joshua Unavailable Unavailable Man SHARMA, Marcella Haywood Attending Unavailable Kanani DMD, Joshua Attending Unavailable Aichholz CONFIGURATION MANAGEMENT ADVISOR-C, Janene J Primary Care Provider Aicsaulo CONFIGURATION MANAGEMENT ADVISOR-C, Janene J Attending Provider [phone] Marcella Conway MD Attending Provider Valdemar Alonso MD Attending Provider [phone] Halle Mac Attending Unavailable Halle Mac Admitting Unavailable Aichholrufus, Janene J Primary Care Unavailable BakmichaelsDonaldiz Attending Unavailable Bakmichaels, Aziz Admitting Unavailable Aichholz, Janene J Primary Care Unavailable Valdemar Alonso Attending Unavailab le Valdemar Alonso Admitting Unavailab le Louann, Janene J Primary Care Unavailable Markel Haq MD Primary Care Provider Aichholz CONFIGURATION MANAGEMENT ADVISOR, Janene Unavailable Aictimmyholrufus CONFIGURATION MANAGEMENT ADVISOR-C, Janene J Primary Care Provider Halle Mac MD Attending Provider [phone] Aicsaulo CONFIGURATION MANAGEMENT ADVISOR-C, Janene Lopes Attending Provider Marcella Conway MD Attending Provider Valdemar Alonso MD Attending Provider Nicola DMD, Joshua Unavailable Unavailable Allergies Allergy ClassificationReported Allergen(s)Allergy TypeDate of OnsetReaction(s) Facility (2 sources)CephalexinDrug Vsyukjv26-72-8014[facility] ([facility] sources)LevamisoleDrug Jgrguns45-38-9016Tee [facility] Repository (2 sources)Omeprazole; Translations: [OMEPRAZOLE]Drug Ktzrquo93-82-5683MynSCCI [facility]ository (14 sources)ProchlorperazineDrug Kywijqk63-47-7430QbjctzbPwgMemorial Hospital Repository (14 sources)Sulfamethoxazole / TrimethoprimDrug Slnvedg58-79-2344SbmnibcEywMemorial Hospital Repository (12 sources)Penicillins (Antibiotic)Propensity to adverse reactionsUnknoPrincipia BioPharma Other (20 sources)Promethazine; Translations: [PROMETHAZINE]Drug Avlivhp88-05-3059 Unknown, [place] (20 sources)empagliflozin; Translations: [EMPAGLIFLOZIN]Drug Tcbnhtq81-75-[address] [facility] (20 sources)Penicillins; Translations: [Penicillins]Allergy to substance 81-60-1239MxfdMddvaobdyCleveland Clinic [facility] (20 sources)Prochlorperazine; Translations: [PROCHLORPERAZINE]Drug Allergy 19-78-3587ExgmgawNbpybocceTrinity Health [facility] (20 sources)Sulfamethoxazole; Translations: [SULFAMETHOXAZOLE]Drug Allergy 76-78-7546UwmqWqxuyjeekCleveland Clinic [facility] for [facility] (15 sources)Trimethoprim; Translations: [trimethoprim]Drug Mhlvsai09-88-0388WjajParkview Health [facility] Hospital (1 source)Sulfonamides (Antibiotic)Drug allergy (disorder)55-40-3746QcdKind[facility] Repository (20 sources)zolpidem; Translations: [ZOLPIDEM]Drug Lrklcwy74-18-6046ZlqdxyiDelaware County HospitalComment on above:per pt (20 sources)Cephalexin; Translations: [CEPHALEXIN]Drug Hljsbqy12-43-6276[facility] (20 sources)EsomeprazoleDrug Qjoglin51-46-1398UO intoleranceNOME Healthcare (20 sources)OmeprazoleDrug Usyqvpc55-60-8891LX intoleranceNONorth [facility] (20 sources)pantoprazole; Translations: [PANTOPRAZOLE]Drug Gobvgbg15-58-0808TI intoleranceRIVERTON HOSPITAL Healthcare (20 sources)Sulfamethoxazole / Trimethoprim; Translations: [SULFAMETHOXAZOLE-TRIMETHOPRIM]Drug Rlkhkzl88-36-0198BuciJOTU Healthcare (1 source)Doxycycline; Translations: [DOXYCYCLINE CALCIUM]Drug Xoyyhop22-11-2752 [facility] Repository (1 source)Esomeprazole; Translations: [ESOMEPRAZOLE MAGNESIUM]Drug Allergy 42-75-2691EjgsbbapjhGerman Hospital Repository (1 source)PHENERGAN PLA[place]; Translations: [PHENERGAN PLAIN]Propensity to adverse reactions to drug (disorder)48-37-3043GejwsmqjqoGerman Hospital Repository (1 source)PromethazineDrug Kyrgnby36-36-3414UatrdisenThe [facility] Repository (2 sources)metFORMINDrug Rzunzfk88-31-8765VusqonllHpjbnsgicParkview Health [facility] Medications Current Medications MedicationDrug Class(es)DatesSig (Normalized)Sig (Original)0.5 ML tirzepatide 15 MG/ML Auto-Injector [Mounjaro] (1 source)inject 1 mg by subcutaneous injection every weekMounjaro 7.5 mg/0.5 mL subcutaneous pen injector inject (7.5MG) by subcutaneous route every week 7.5 MG - Activeacetaminophen 325 mg / oxyCODONE hydrochloride 7.5 mg oral tablet (20 sources)Opioid AgonistStart: 10-01-2023 End: 88-77-9559bxbt 1 tablet by mouth every eight hours as needed for painStart: 06-24-2022 End: 26-37-6480twst 1 tablet by mouth every six hours as needed for pain Oxycodone-Acetaminophen 5-325 mg tablet Discontinued 1 TAB PO Q6H as needed for pain 10 3 0 June 24, 2022 August 15, 2023 9:12am Radiculopathy Radiculopathy, site unspecifiedtake 1 tablet by mouth in the morningoxyCODONE-acetaminophen (Percocet) 7.5-325 MG tablet Take 1 tablet by mouth in the morning and 1 tablet before bedtime. [id number] 200 actuat albuterol 0.09 mg/actuat metered dose inhaler (6 sources)beta2-Adrenergic AgonistStart: 07-54-7558xfwf 1 puff(s) by inhalation every four hoursAlbuterol Sulfate (Ventolin Hfa) 90 mcg/actuation HFA aerosol inhaler Active 2 PUFF INHALATION Q4H June 04, 2021 1:00amAlbuterol Active amLODIPine 10 mg oral tablet (20 sources)Dihydropyridine Calcium Channel BlockerStart: 10-16-2023 End: 62-69-7832dnjc 1 tablet by mouth once dailyStart: 08-15-2023 End: 90-12-1085ryun 1 tablet by mouth once dailyAmlodipine 10 mg tablet Discontinued 10 MG PO Daily August 14, 2023 11:00pm October 02, 2023 9:55amtake 1 tablet by mouth every twenty-four hoursamLODIPine Besylate 5 MG 1 tablet Orally Once a day ActiveamLODIPine Besylate ActiveARIPiprazole 30 mg oral tablet (20 sources)Atypical AntipsychoticStart: 33-33-1709gaja 1 tablet by mouth once dailyStart: 08-15-2023 End: 08-19-9063btql 1 tablet by mouth once dailyAripiprazole 20 mg tablet Discontinued 20 MG PO Daily August 14, 2023 11:00pm October 16, 2023 12:13pm Start: 06-04-2021 End: 60-14-2055vqdv 1 tablet by mouth once dailyAripiprazole 30 mg tablet Discontinued 30 MG PO Daily June 04, 2021 12:00am August 15, 2023 9:05amtake 1 tablet by mouth every twenty-four hoursAbilify 20 MG 1 tablet Orally Once a day Activetake 1 tablet by mouth every twenty-four hoursARIPiprazole 15 MG 1 tablet Orally Once a day takes 1100 Activeaspirin 81 mg delayed release oral tablet (20 sources)Platelet Aggregation Inhibitor, Nonsteroidal Anti-inflammatory Drug Start: 98-78-0322eypr 1 tablet by mouth once dailytake 1 tablet by mouth every twenty-four hoursAspirin 81 MG 1 tablet Orally Once a day Activeatorvastatin 80 mg oral tablet (20 sources)HMG-CoA Reductase InhibitorStart: 20-22-7577hren 1 tablet by mouth once dailyStart: 06-04-2021 End: 26-52-3654mqru 1 tablet by mouth at bedtimeAtorvastatin 40 mg tablet Discontinued 40 MG PO Bedtime June 04, 2021 12:00am August 15, 2023 9:06am azithromycin 250 mg oral tablet (8 sources)Macrolide AntimicrobialStart: 03-06-2024 End: 08-98-1101fiqxqdkbufko (Zithromax) 250 MG tablet Indications: Acute non- recurrent pansinusitis 2 pills day #1, then 1 pill day #2-#5 6 tablet 03/06/2024 06/16/2024 Discontinued (Therapy completed)benztropine mesylate 0.5 mg oral tablet (20 sources)Anticholinergic, AntihistamineStart: 97-09-9226bvhx 1 tablet by mouth twice dailyBiotin (6 sources)Biotin ActiveBlood Glucose Monitoring Suppl (True Metrix Air Glucose Meter) w/Device kit (20 sources)Start: 46-71-8369Mbpzf Glucose Monitoring Suppl (True Metrix Air Glucose Meter) w/Device kit Indications: Type 2 diabetes mellitus without complication, without long-term current use of insulin ([facility]) 1 each Daily 1 kit 11/03/2024 ActiveStart: 07-02-2023 End: 25-95-8710Imkue Glucose Monitoring Suppl (True Metrix Air Glucose Meter) w/Device kit Indications: Type 2 diabetes mellitus without complication, without long-term current use of insulin ([facility]) 1 each Daily 1 kit 07/02/2023 11/03/2024 Discontinued (Reorder)Start: 47-25-9320Xnkjs Glucose Monitoring Suppl (True Metrix Air Glucose Meter) w/Device kit Indications: Type 2 diabetes mellitus without complication, without long-term current use of insulin ([facility]) 1 each Daily 1 kit 07/02/2023 ActiveStart: 62-20-6726Sdlyt Glucose Monitoring Suppl (True Metrix Air Glucose Meter) w/Device kit Indications: Type 2 diabetes mellitus without complication, without long-term current use of insulin 1 each Daily 1 kit 07/02/2023 ActiveStart: 07-43-4531Kdnoh Glucose Monitoring Suppl (True Metrix Air Glucose Meter) w/Device kit Indications: Type 2 diabetes mellitus without complication, without long-term current use of insulin ([facility]) 1 each Daily1 kit 07/02/2023 ActiveBlood Glucose Monitoring Suppl (True Metrix Meter) w/Device kit (2 sources)Start: 38-50-3821Tolki Glucose Monitoring Suppl (True Metrix Meter) w/Device kit Indications: Type 2 diabetes mellitus without complication, without long-term current use of insulin ([facility]) USE 1 TO CHECK GLUCOSE ONCE DAILY 1 kit 12/01/2024 ActivebusPIRone hydrochloride 30 mg oral tablet (20 sources)Start: 99-34-9572wvqf 1 tablet by mouth twice dailyCalcium Citrate + D 315-200 MG-UNIT (6 sources)take 1 tablet by mouth twice dailyCalcium Citrate + D 315-200 MG-UNIT 1 tablet Orally Twice a day Activecariprazine 6 mg oral capsule (20 sources)Atypical AntipsychoticStart: 11-29-2023 End: 80-59-9482Qqmwnbm 4.5 MG capsule 11/29/2023 02/19/2024 DiscontinuedStart: 27-33-7061hfvu 1 capsule by mouth once dailyVraylar Activecetirizine hydrochloride 10 mg oral tablet (20 sources)Histamine-1 Receptor AntagonistStart: 17-05-7880ihoo 1 tablet by mouth once dailyCetirizine HCl Activecholecalciferol 0.125 mg oral capsule (20 sources)Vitamin DStart: 57-31-1027ryps 1 capsule by mouth once dailyStart: 08-15-2023 End: 59-68-5932muih 1 capsule by mouth once dailyCholecalciferol (Vitamin D3) 125 mcg (5,000 unit) capsule Discontinued 125 MCG PO Daily July 11:00pm November 26, 2024 8:50amtake 1 capsule by mouth in the morning cholecalciferol (Vitamin D-3) 125 MCG (5000 UT) capsule Take 5,000 Units by mouth in the morning. Activecholecalciferol (vitamin D3) 125 mcg (5,000 unit) tablet - Activeciprofloxacin 500 mg oral tablet (17 sources)Quinolone AntimicrobialStart: 12-05-2023 End: 10-12-5989rpoh 1 tablet by mouth in the morningciprofloxacin (Cipro) 500 MG tablet Indications: Left lower quadrant abdominal pain Take 1 tablet (500 mg) by mouth in the morning and 1 tablet (500 mg) before bedtime. Do all this for 10 days. 20 tablet 12/05/2023 12/15/2023 ActiveStart: 08-13-2021 End: 01-62-1039uowg 1 tablet by mouth every two hoursCiprofloxacin Hcl (Cipro) 500 mg Tablet Discontinued 500 MG PO Q12H 10 0 August 12, 2021 11:00pm August 15, 2023 9:07am administer dose at least 2 hrs before/6 hrs after dairy products, calcium, zinc,and/or iron-containing productsdocusate sodium 50 mg / sennosides, residential 8.6 mg oral tablet (20 sources)take 1 tablet by mouth once dailysenna-docusate sodium (Senokot-S) 8.6-50 MG tablet Take 1 tablet by mouth Daily OTC PO daily Activeescitalopram 20 mg oral tablet (13 sources)Serotonin Reuptake InhibitorStart: 84-47-3830hnjt 20 mg by mouth once dailyEscitalopram Oxalate Active 20 MG PO Daily June 04, 2021 1:00am Escitalopram Oxalate in am 1100 Activefenofibrate 145 mg oral tablet (20 sources)Peroxisome Proliferator Receptor alpha AgonistStart: 12-05-2019 End: 55-89-4772mjbw 1 tablet by mouth once dailyFenofibrate Activefluconazole 150 mg oral tablet (5 sources)Azole AntifungalStart: 12-18-2023 End: 34-86-2021ghcryrnaffc (Diflucan) 150 MG tablet Indications: Antibiotic- induced yeast infection 1 dose, repeatin 72 hours 2 tablet 12/18/2023 02/19/2024 DiscontinuedFLUoxetine 20 mg oral capsule (20 sources)Serotonin Reuptake InhibitorStart: 70-47-8716yoth 2 capsules by mouth once dailyStart: 42-03-5004djou 1 capsule by mouth once dailyStart: 10-10-2023 End: 20-44-0539jlmb 1 capsule by mouth once dailyFluoxetine (Prozac) 20 mg capsule Discontinued 20 MG PO Daily October 15, 2023 11:00pm February 10, 2025 8:51amStart: 10-01-2023 End: 07-93-4038mwor 1 capsule by mouth once dailyFluoxetine 10 mg capsule Discontinued 10 MG PO Daily September 30, 2023 11:00pm October 16, 2023 12:08pm fluticasone propionate 0.05 mg/actuat metered dose nasal spray (20 sources)CorticosteroidStart: 31-99-2972jcpj 2 spray(s) nasal route once dailyfluticasone (Flonase) 50 MCG/ACT nasal spray Indications: Seasonal allergies Administer 2 sprays into each nostril Daily 16 g 5 10/24/2023 Active Start: 06-04-2021 End: 23-06-3142vnea 1-2 spray(s) nasal route once daily as neededfluticasone propionate 50 mcg/actuation nasal spray,suspension spray 1 - 2 spray by intranasal route every day in each nostril as needed 50-100 MCG - Active Fluticasone Propionate Activegabapentin 600 mg oral tablet (20 sources)Anti-epileptic AgentStart: 12-08-2024 End: 21-08-5440gnxn 1 tablet by mouth twice daily as neededgabapentin (Neurontin) 600 MG tablet Indications: Restless leg syndrome Take 1 tablet (600 mg) by mouth 2 (two) times a day as needed (RLS) 60 tablet 2 12/08/2024 01/07/2025 ActiveStart: 10-23-2023 End: 59-19-6237kigq 1 tablet by mouth twice daily as neededgabapentin (Neurontin) 600 MG tablet Indications: Restless leg syndrome Take 1 tablet (600 mg) by mouth 2 (two) times a day as needed (RLS) 60 tablet 2 07/25/2024 Active Start: 10-02-2023 End: 32-58-1514nhgg 1 tablet by mouth every eight hours as neededStart: 08-15-2023 End: 64-31-7968zibd 1 tablet by mouth every six hoursGabapentin 600 mg tablet Discontinued 600 MG PO Every 6 hours August 14, 2023 11:00pm October 02, 2023 9:34amStart: 07-24-4484wkgx 1 tablet by mouth every twelve hoursGabapentin 600 MG 1 tablet Orally TWICE A DAY for 20 days Oct, ActiveStart: 11-10-2021 take 2 tablets by mouth every twelve hoursGabapentin 600 MG 2 tablets Orally bid for 20 days Oct, ActiveStart: 72-00-3878uuso 1-2 capsules by mouth twice dailyGabapentin 300 MG 1-2 capsule Orally twice a day for 30 day(s) Sep, ActiveStart: 44-03-9112svsi 1 capsule by mouth every twenty-four hours Gabapentin 300 MG 1 capsule Orally Once a day for 30 day(s) Nov, Active End: 86-63-0453ootx 1 tablet by mouth every eight hoursgabapentin 600 mg tablet take 1 tablet by oral route 3 times every day 600 MG - No Longer ActivehydroCHLOROthiazide 12.5 mg oral tablet (1 source)Thiazide Diuretictake 1 tablet by mouth every twenty-four hours hydroCHLOROthiazide 12.5 MG 1 tablet in the morning Orally Once a day Rgmqsm83 hr isosorbide mononitrate 30 mg extended release oral tablet (20 sources)Nitrate VasodilatorStart: 99-05-9419seev 1 tablet by mouth every twenty-four hoursStart: 06-04-2021 End: 40-17-8183tdvy 1 tablet by mouth once daily, then take 1 tablet by mouth every twenty-four hoursIsosorbide Mononitrate 30 mg tablet extended release 24 hr Discontinued 30 MG PO Daily June 04, 2021 12:00am October 02, 2023 9:56amtake 1 tablet by mouth every twenty-four hoursIsosorbide Mononitrate 10 MG 1 tablet Orally once a day for 30 day(s) Activemagnesium oxide 400 mg oral tablet (19 sources)Start: 13-52-2195zgej 1 tablet by mouth every twenty-four hours Magnesium Oxide 400 MG 1 tablet Orally Once a day for 30 day(s) Nov, Activetake 1 tablet by mouth once dailytake 1 tablet by mouth once daily Magnesium Oxide 400 (241.3 Mg) MG TAKE 1 TABLET BY MOUTH ONCE DAILY for 30 ActivemetFORMIN hydrochloride 500 mg oral tablet (6 sources)BiguanideStart: 78-90-2218jnjf 1 tablet by mouth every twenty-four hoursmetFORMIN HCl 500 mg 1 tablet with meals Orally Once a day for 30 day(s) Jan, Imfufe24 hr metoprolol succinate 25 mg extended release oral tablet (20 sources)beta-Adrenergic BlockerStart: 28-34-6928cmax 2 tablets by mouth once dailyStart: 81-92-0685vnjv 12.5 mg by mouth once dailyMetoprolol Succinate Active 12.5 MG PO Daily June 04, 2021 1:00amtake 1 tablet by mouth once dailymetoprolol succinate ER 25 mg tablet,extended release 24 hr take 1 tablet by oral route every day 25 MG - Activetake 0.5 tablet by mouth once dailyToprol XL 25 MG 1/2 tablet Orally Once a day ActiveMetoprolol Succinate ER Active metoprolol succinate XL (Toprol-XL) 12.5 mg 24 hr split tablet (20 sources)metoprolol succinate XL (Toprol-XL) 12.5 mg 24 hr split tablet Take 12.5 mg by mouth Daily Pt has 25mg tabs and slitting the tab in half = taking 1/2 of 25mg ActivemetroNIDAZOLE 500 mg oral tablet (3 sources)Nitroimidazole AntimicrobialStart: 12-05-2023 End: 35-32-0927prpp 1 tablet by mouth every eight hoursmetroNIDAZOLE (Flagyl) 500 MG tablet Indications: Left lower quadrant abdominal pain Take 1 tablet (500 mg) by mouth every 8 (eight) hours for 10 days No alcohol 30 tablet 12/05/2023 12/15/2023 ActiveMounjaro 5 MG/0.5ML solution auto-injector (2 sources)Start: 02-10-2024 End: 07-11-6006Jumpkhdf 5 MG/0.5ML solution auto-injector inject 5 mg subcutaneously every 7 (seven) days for 28 days 02/10/2024 02/19/2024 Discontinuednitroglycerin 0.4 mg sublingual tablet (20 sources)Nitrate VasodilatorStart: 56-65-0221Fplrj: 38-08-9741cqydfcncvbuuq (Nitrostat) 0.[address] 1 TABLET UNDER TONGUE FOR CHEST PAIN. CALL 911 IF NO IMPROVEMENT AFTER 5 MIN. REPEAT DOSE TWICE IF NEEDED 12/18/2023 Active Nitrostat 0.4 MG Sublingual Activeondansetron 4 mg oral tablet (1 source)Serotonin-3 Receptor AntagonistStart: 37-16-2181xwzc 1 tablet by mouth three times daily as needed for nauseaZofran 4 mg 1 tablet Orally TID as needed for nausea for 5 days May, Dygcln31 hr paliperidone 3 mg extended release oral tablet (12 sources)Atypical AntipsychoticStart: 12-27-2023 End: 71-92-9374blpj 1 tablet by mouth once daily in the morningpaliperidone (Invega) 3 MG 24 hr tablet TAKE 1 TABLET BY MOUTH DAILY IN THE MORNING 12/27/2023 06/16/2024 Discontinued (Therapy completed)Potassium (6 sources)Potassium ActiverOPINIRole 0.25 mg oral tablet (20 sources)Nonergot Dopamine AgonistStart: 74-68-3017uadi 2 tablets by mouth once daily at bedtimeStart: 03-12-2024 End: 82-13-9738hvbo 1 tablet by mouth once daily at bedtimeRopinirole 0.25 mg tablet Discontinued 0.25 MG PO Daily at bedtime 90 1 January 30, 2025 2:46pm February 10, 2025 9:05am Restless legs syndrome Restless legs syndromeStart: 10-24-2023 End: 43-95-2944nlbs 1 tablet by mouth at bedtimerOPINIRole (Requip) 0.25 MG tablet Indications: Restless leg syndrome Take 1 tablet (0.25 mg) by mouth at bedtime 30 tablet 2 12/18/2023 01/17/2024 Activesacubitril 49 mg / valsartan 51 mg oral tablet (20 sources)Angiotensin 2 Receptor BlockerStart: 10-01-2023 End: 77-73-8135amct 0.5 tablet by mouth twice dailysacubitril-valsartan (Entresto) 49-51 MG tablet Take 0.5 tablets by mouth in the morning and 0.5 tab lets before bedtime. Pt is to take 1/2 tab in morning and 1/2 tab at night to equal 1 tab per day. ActiveTirzepatide (6 sources)Start: 64-57-5634Nrvrf: 79-25-4515Vhhambloose (Mounjaro) 7.5 mg/0.5 mL pen injector Active 7.5 MG SUBCUT every week March 12, 2024 1:00am Complies with drug therapyStart: 64-69-4551Tpkwblhllvb (Mounjaro) 5 MG/0.5ML solution pen-injector (2 sources)Start: 12-19-2023 End: 91-07-3633Edvkrwxxzku (Mounjaro) 5 MG/0.5ML solution pen-injector Indications: Type 2 diabetes mellitus with stage 4 chronic kidney disease, without long-term current use of insulin (CMS/HCC) 5 mg by Other route every 7 (seven) days for 28 days 2 mL 3 12/19/2023 01/16/2024 ActiveTirzepatide (Mounjaro) 7.5 MG/0.5ML solution auto-injector (20 sources)Start: 13-38-9923hywyjk 7.5 mg by subcutaneous injection every week Tirzepatide (Mounjaro) 7.5 MG/0.5ML solution auto-injector Indications: Type 2 diabetes mellitus with other circulatory complications (HCC) INJECT 7.5MG SUBCUTANEOUSLY ONCE A WEEK 2 mL 2 11/28/2024 ActiveStart: 18-75-8888mbutaq 7.5 mg by subcutaneous injection every weekTirzepatide (Mounjaro) 7.5 MG/0.5ML solution auto-injector Indications: Type 2 diabetes mellitus with other circulatory complications (HCC) INJECT 7.5 MG SUBCUTANEOUSLY ONCE A WEEK 2 mL 1 10/08/2024 ActiveStart: 63-55-3954zldyum 7.5 mg by subcutaneous injection every weekTirzepatide (Mounjaro) 7.5 MG/0.5ML solution auto-injector Indications: Type 2 diabetes mellitus with other circulatory complications (HCC) INJECT 7.5 MG SUBCUTANEOUSLY UNDER THE SKIN 1 TIME PER WEEK2 mL 3 06/30/2024 ActiveStart: 32-86-6577bronxu 7.5 mg by subcutaneous injection every weekTirzepatide (Mounjaro) 7.5 MG/0.5ML solution auto-injector Indications: Type 2 diabetes mellitus with other circulatory complications INJECT 7.5 MG SUBCUTANEOUSLY UNDER THE SKIN 1 TIME PER WEEK 2 mL 3 06/30/2024 ActiveStart: 12-73-3967nppyhl 7.5 mg by subcutaneous injection every weekTirzepatide (Mounjaro) 7.5 MG/0.5ML solution auto-injector Indications: Type 2 diabetes mellitus with other circulatory complications (CMS/HCC) Inject 7.5 mg under the skin 1 (one) time per week 2 mL3 02/19/2024 ActivetiZANidine 4 mg oral tablet (20 sources)Central alpha-2 Adrenergic AgonistStart: 08-15-2023 End: 02-77-4594tdlq 1 tablet by mouth every eight hours as needed for muscle spasmsStart: 06-04-2021 End: 28-87-0998yxci 1 tablet by mouth at bedtimeTizanidine 4 mg tablet Discontinued 4 MG PO Bedtime June 04, 2021 12:00am August 13, 2021 1:52pm Start: 06-04-2021 End: 58-55-1659mkyf 4 mg by mouth at bedtimeTizanidine Discontinued 4 MG PO Bedtime June 04, 2021 1:00am August 13, 2021 2:52pmtiZANidine HCl Active vitamin b12 2.5 mg sublingual tablet (20 sources)Vitamin O60Jwkes: 53-93-5628lskh 1 tablet under the tongue once dailyStart: 11-26-2024 End: 27-54-4183zent 1 tablet under the tongue once dailyCyanocobalamin (Vitamin B-12) 2,500 mcg tablet, sublingual Discontinued 2500 MCG SUBLINGUAL Daily November 26, 2024 8:41am November 26, 2024 8:48amStart: 03-12-2024 End: 29-34-4595Fniqailcsdrcqg (Vitamin B-12) 2,500 mcg tablet, sublingual Discontinued 2500 MCG SUBLINGUAL Every 48 hours November 26, 2024 8:48am February 10, 2025 8:51amStart: 10-01-2023 End: 49-39-5224oiqg 1 tablet under the tongue once dailyCyanocobalamin (Vitamin B-12) 2,500 mcg tablet, sublingual Discontinued 2500 MCG SUBLINGUAL Daily September 30, 2023 11:00pm March 12, 2024 9:47amStart: 40-42-9387klcv 1 tablet by mouth once dailyCyanocobalamin 500 MCG 1 tablet Orally Once a day for 30 day(s) Sep, Not-TakingCyanocobalamin (Vitamin B-12) [address] 5,000 mg under the tongue 1 (one) time each day Activecyanocobalamin (vitamin B-12) 2,500 mcg tablet - Activetake 1 tablet by mouth once daily Cyanocobalamin 500 MCG 1 Tablet Orally Once a day for 30 day(s) Not-Taking Vitamin D3 5000 UNIT (12 sources)take 1 capsule by mouth once dailytake 1 capsule by mouth once daily Vitamin D3 5000 UNIT 1 capsule Orally Once a day for 30 day(s) Active Completed/Discontinued Medications MedicationDrug Class(es)DatesSig (Normalized)Sig (Original)alogliptin 25 mg oral tablet (1 source)Start: 84-49-8190ienz 1 tablet by mouth every twenty-four hours Alogliptin Benzoate 25 MG 1 tablet Orally Once a day for 30 day(s) Sep, Not-Takingcalcium citrate 1040 mg oral tablet (1 source)Start: 20-01-1788qzag 1 tablet by mouth once dailyCalcium Citrate 1040 MG 1 tablet Orally Once a day for 30 day(s) Sep, Not-Takingcarvedilol 25 mg oral tablet (1 source)alpha-Adrenergic Seema, beta-Adrenergic Blockertake 1 tablet by mouth every twelve hoursCarvedilol 25 MG 1 tablet Orally BID for 30 Not-Taking cyclobenzaprine hydrochloride 10 mg oral tablet (14 sources)Muscle RelaxantStart: 08-13-2021 End: 45-26-7253itlk 1 tablet by mouth three times daily as needed for muscle spasmsCyclobenzaprine 10 mg tablet Discontinued 10 MG PO Three times daily as needed for back spasms 50 0April 2021 11:00pm June 24, 2022 5:53pm doxycycline hyclate 100 mg oral capsule (1 source)Tetracycline-class Drugtake 1 capsule by mouth every twelve hours Doxycycline Hyclate 100 MG 1 capsule Orally Twice a day for 30 Not-Taking furosemide 20 mg oral tablet (20 sources)Loop DiureticStart: 04-30-2023 End: 21-92-4037wyfy 1 tablet by mouth once dailyFurosemide (Lasix) 20 mg tablet Discontinued 20 MG PO Daily August 14, 2023 11:00pm November 26, 2024 8:42am take 1 tablet by mouth every twenty-four hoursLasix 20 MG 1 tablet Orally Once a day ActiveglipiZIDE 5 mg oral tablet (20 sources)SulfonylureaStart: 06-04-2021 End: 86-73-7097tfxw 1 tablet by mouth once dailyGlipizide 5 mg tablet Discontinued 5 MG PO Daily June 04, 2021 12:00am August 15, 2023 9:08amtake 0.5 tablet by mouth once dailyglipiZIDE 5 MG 1/2 tablet Orally Once a day Active lamoTRIgine 200 mg oral tablet (15 sources)Mood Stabilizer, Anti-epileptic AgentStart: 08-15-2023 End: 47-80-9327yhje 1 tablet by mouth once dailyLamotrigine (Lamictal) 200 mg tablet Discontinued 200 MG PO Daily August 14, 2023 11:00pm 2023 9:32amtake 1 tablet by mouth every twenty-four hoursLaMICtal 200 MG 1 tablet Orally Once a day Activelidocaine 0.05 mg/mg medicated patch (12 sources)Antiarrhythmic, Amide Local AnestheticStart: 06-24-2022 End: 93-12-8002rktxz 1 dose topically once daily as needed for painLidocaine 5 % adhesive patch,medicated Discontinued 1 PATCH TOPICAL Daily as needed for pain 30 June 24, 2022 12:00am August 15, 2023 9:08am leave on most painful area for up to 12 hrslinagliptin 5 mg oral tablet (1 source)Dipeptidyl Peptidase 4 InhibitorStart: 61-84-5850rpms 1 tablet by mouth every twenty-four hoursTradjenta 5 MG 1 tablet Orally Once a day for 30 day(s) Nov, Not-Takinglisinopril 40 mg oral tablet (20 sources)Angiotensin Converting Enzyme InhibitorStart: 06-04-2021 End: 05-10-9218wuom 1 tablet by mouth once dailyLisinopril 40 mg tablet Discontinued 40 MG PO Daily June 04, 2021 12:00am August 15, 2023 9:09am methylPREDNISolone 4 mg oral tablet (12 sources)CorticosteroidStart: 06-24-2022 End: 17-67-6946Pwhdidxtwckilfelwv 4 mg tablets,dose pack Discontinued 0 PO .COMPLEX June 24, 2022 12:00am August 15, 2023 9:09am orally per package directionsStart: 06-24-2022 End: 38-97-9911Msojvyayljgmjsnthn Discontinued 0 PO .COMPLEX June 24, 2022 1:00am August 15, 2023 10:09am orally per package directionsStart: 06-24-2022 Methylprednisolone Active 0 PO .COMPLEX June 24, 2022 1:00am orally per package directionsStart: 50-71-3849Eplbkgctkbnjokynpx Active 0 PO .COMPLEX June 24, 2022 12:00am orally per package directionsmirtazapine 15 mg oral tablet (15 sources)Start: 06-04-2021 End: 04-41-4157nxci 2 tablets by mouth at bedtimeMirtazapine 15 mg tablet Discontinued 30 MG PO Bedtime June 04, 2021 12:00am August 15, 2023 9:11am Start: 06-04-2021 End: 31-49-0162rezg 30 mg by mouth at bedtimeMirtazapine Discontinued 30 MG PO Bedtime June 04, 2021 1:00am August 15, 2023 10:11amMirtazapine before bed2129 Activemometasone furoate 0.05 mg/actuat metered dose nasal spray (9 sources)CorticosteroidStart: 10-01-2023 End: 02-59-3052tzvt 1 spray(s) nasal route once dailyMometasone (Allergy Nasal (Mometasone)) 50 mcg/actuation spray,non-aerosol Discontinued 2 SPRAY INTRANASAL Daily September 30, 2023 11:00pm October 16, 2023 12:11pm administer into each nostrilMounjaro 5 MG/0.5ML solution pen-injector (8 sources)Start: 10-15-2023 End: 82-65-6203Kodxprgq 5 MG/0.5ML solution pen-injector 5 mg by Other route every 7 (seven) days 10/15/2023 12/19/2023 Discontinued (Reorder)Start: 93-54-1242Befigcxq 5 MG/0.5ML solution pen-injector 5 mg by Other route every 7 (seven) days 10/15/2023 ActiveMultivitamin preparation (2 sources)Start: 64-79-0693xozr 1 tablet by mouth once dailyMulti-Vitamin - 1 tablet Orally Once a day for 30 day(s) Sep, Not-TakingStart: 03-22-2018 take 1 tablet by mouth once dailyMulti-Vitamin - 1 tablet Orally Once a day for 30 day(s) Mar, ActiveoxyCODONE hydrochloride 5 mg oral tablet (14 sources)Opioid AgonistStart: 08-13-2021 End: 52-63-8793mbjd 5-10 mg by mouth every six hours as needed for painOxycodone 5 mg Tablet Discontinued 5 - 10 MG PO Q6H as needed for Pain 50 8 0 August 13, 2021 June 24, 2022 5:53pm Herniation of lumbar intervertebral disc with radiculopathy Intervertebral disc disorders with radiculopathy, lumbar region pioglitazone 45 mg oral tablet (20 sources)Peroxisome Proliferator Receptor alpha Agonist, Peroxisome Proliferator Receptor gamma Agonist, ThiazolidinedioneStart: 08-15-2023 End: 24-16-9091ksvm 1 tablet by mouth once dailyPioglitazone (Actos) 45 mg tablet Discontinued 45 MG PO Daily August 14, 2023 11:00pm February 10, 2025 8:51amStart: 06-04-2021 End: 40-13-5091Lfrfjelmzdfe 30 mg tablet Discontinued 45 MG PO Daily June 04, 2021 12:00am August 15, 2023 9:05amStart: 06-04-2021 End: 19-32-8414fizv 45 mg by mouth once dailyPioglitazone Discontinued 45 MG PO Daily June 04, 2021 1:00am August 15, 2023 10:05amtake 1 tablet by mouth every twenty-four hoursActos 45 MG 1 tablet Orally Once a day ActivePioglitazone HCl Activepramipexole dihydrochloride 0.25 mg oral tablet (9 sources)Nonergot Dopamine AgonistStart: 10-01-2023 End: 54-72-6205gmay 1 tablet by mouth once daily at bedtimePramipexole 0.25 mg tablet Discontinued 0.25 MG PO Daily at bedtime September 30, 2023 11:00pm October 12:12pmpredniSONE 10 mg oral tablet (14 sources)Start: 08-13-2021 End: 43-35-6245Mttzebkued 10 mg tablets,dose pack Discontinued 1 dose pk PO per package directions 30 0 August 12, 2021 11:00pm June 24, 2022 5:53pm take 4 tabs for 3 days then take 3 tabs for 3 days then take 2 tabs for 3 days then take 1 tab for 3 daysStart: 08-13-2021 End: 47-59-7144Sajjwsrtyj Discontinued 1 dose pk PO per package directions August 13, 2021 12:00am June 6:53pm take 4 tabs for 3 days then take 3 tabs for 3 days then take 2 tabs for 3 days then take 1 tab for 3 daysStart: 08-13-2021 End: 87-87-7867Lqaznmknbz Discontinued 1 dose pk PO per package directions August 12, 2021 11:00pm June 5:53pm take 4 tabs for 3 days then take 3 tabs for 3 days then take 2 tabs for 3 days then take 1 tab for 3 daysStart: 85-51-8439Hcaoebkiut Active 1 dose pk PO per package directions August 13, 2021 12:00am take 4 tabs for 3days then take 3 tabs for 3 days then take 2 tabs for 3 days then take 1 tab for 3 daysspironolactone 25 mg oral tablet (20 sources)Aldosterone AntagonistStart: 10-01-2023 End: 29-29-8296vcdt 1 tablet by mouth once dailySpironolactone 25 mg tablet Discontinued 25 MG PO Daily September 30, 2023 11:00pm October 02, 2023 9:55am On Hold: Until cleared by NephrologyStart: 60-64-7952llca 50 mg by mouth once daily Spironolactone Active 50 MG PO Daily June 04, 2021 1:00amSpironolactone ActiveTirzepatide (9 sources)Start: 10-01-2023 End: 74-36-3039Opnmdldclse (Mounjaro) 2.5 mg/0.5 mL pen injector Discontinued 2.5 MG SUBCUT .weekly September 30, 2023 11:00pm October 16, 2023 12:12pmStart: 10-01-2023 End: 26-37-3990Fpsywdncesp (Mounjaro) 2.5 mg/0.5 mL pen injector Discontinued 2.5 MG SUBCUT .weekly October 01, 2023 12:00am October 16, 2023 1:12pmStart: 09-70-1206Qvzcfwakgsr (Mounjaro) 2.5 mg/0.5 mL pen injector Active 2.5 MG SUBCUT .weekly October 01, 2023 12:00amTirzepatide (14 sources)Start: 03-12-2024 End: 28-34-2128Ybjdzigwvub (Mounjaro) 5 mg/0.5 mL pen injector Discontinued 7.5 MG SUBCUT every week March 12, 2024 9:32am March 12, 2024 9:38amStart: 03-12-2024 End: 41-13-8089Qvsjltvplrs (Mounjaro) 5 mg/0.5 mL pen injector Discontinued 7.5 MG SUBCUT every week March 12, 2024 10:32am March 12, 2024 10:38am Start: 10-16-2023 End: 69-65-9887Tzrrskgwodn (Mounjaro) 5 mg/0.5 mL pen injector Discontinued 5 MG SUBCUT every week October 15, 2023 11:00pm March 12, 2024 9:38amStart: 10-16-2023 End: 35-03-1464Gobdtatpanv (Mounjaro) 5 mg/0.5 mL pen injector Discontinued 5 MG SUBCUT every week October 16, 2023 12:00am March 12, 2024 10:38amStart: 54-63-5696Laosizunzcy (Mounjaro) 5 mg/0.5 mL pen injector Active 5 MG SUBCUT every week October 16, 2023 12:00amTriamcinolone (3 sources)CorticosteroidStart: 10-01-2023 End: 49-13-4006Ewywcnycjaras Acetonide Discontinued 110 MCG INTRANASAL Daily October 01, 2023 12:00am October 16, 2023 1:12pmStart: 96-79-4447Jxplgzrdtizmw Acetonide Active 110 MCG INTRANASAL Daily October 01, 2023 12:00amTriamcinolone Acetonide 55 mcg/actuation aerosol (6 sources)Start: 10-01-2023 End: 75-94-3107Jbivyzlydjmhm Acetonide 55 mcg/actuation aerosol Discontinued 110 MCG INTRANASAL Daily September 30, 2023 11:00pm October 16, 2023 12:12pmStart: 10-01-2023 End: 10-55-7633Ybzfccmjxioyv Acetonide 55 mcg/actuation aerosol Discontinued 110 MCG INTRANASAL Daily October 01, 2023 12:00am October 16, 2023 1:12pm Problems Active Problems Problem ClassificationProblemDateDocumented DateEpisodic/ChronicAcute and unspecified renal failure (20 sources)Acute renal failure syndrome; Translations: [Acute kidney failure, unspecified]Onset: 674378-79-0430BemyziczJxckccew reactions (12 sources)Environmental allergy; Translations: [Other allergy status, other than to drugs and biological substances]EpisodicAnxiety disorders (20 sources)Generalized anxiety disorder; Translations: [Generalized anxiety disorder]Onset: 174243-53-0100VegrwelKyonukq kidney disease (20 sources)Chronic kidney disease stage 3; Translations: [Chronic kidney disease, stage 3 unspecified]Onset: 982382-48-4130AlilkeaYevrlca kidney disease (2 sources)Chronic kidney disease; Translations: [Chronic kidney disease, stage 3b]Onset: 69-03-9718Nsbmmuxuez heart failure; nonhypertensive (20 sources)Chronic diastolic heart failure; Translations: [Chronic diastolic (congestive) heart failure]Onset: 849316-63-1855HukxdprBauxyrju atherosclerosis and other heart disease (20 sources)Coronary arteriosclerosis; Translations: [Atherosclerotic heart disease of [place] coronary artery without angina pectoris]Onset: 09-11-2022 67-76-6999SyplzziOpswrolc mellitus with complications (20 sources)Type 2 diabetes mellitus; Translations: [Type 2 diabetes mellitus with hypoglycemia without coma]Onset: 10-02-2021 Resolved: 81-37-5350XxutncnSrhzxcmy mellitus without complication (1 source)Type 2 diabetes mellitus without complications; Translations: [TYPE 2 DM WITHOUT COMPLICATIONS]Onset: 50-49-2582JxyhgbvKpxuefdtk of lipid metabolism (20 sources)Dyslipidemia; Translations: [Hyperlipidemia, unspecified]Onset: 39-53-5996OjwjzdpBsfmkbmgbdedmy and diverticulitis (20 sources)Diverticulosis of large intestine; Translations: [Diverticulosis of large intestine without perforation or abscess without bleeding]Onset: 216521-55-1737ZjizqwjWwxohvcxuu disorders (20 sources)Gastroesophageal reflux disease; Translations: [Gastro-esophageal reflux disease without esophagitis]Onset: 44-28-1132CptwgcbWbpykhplg hypertension (20 sources)Essential hypertension; Translations: [Essential (primary) hypertension]Onset: 435274-19-1459OuqnzhsHonqe and electrolyte disorders (20 sources)Hyperkalemia; Translations: [Hyperkalemia]Onset: 15-54-7140Xmqklbgk Headache; including migraine (20 sources)Tension-type headache; Translations: [Tension-type headache, unspecified, not intractable]Onset: 893389-91-8306JqgnxqwUpbcporioruq with complications and secondary hypertension (20 sources)Hypertensive renal disease; Translations: [Hypertensive chronic kidney disease with stage 1 throughstage 4 chronic kidney disease, or unspecified chronic kidney disease]Onset: 85-47-1192CqlfhriCrzqjed and fatigue (20 sources)Decline in functional status; Translations: [Other malaise]Onset: 09-11-2023 Resolved: 462338-37-9367MngoalatSylp disorders (20 sources)Bipolar disorder, unspecified; Translations: [Depressive disorder] Onset: 03-22-2012 Resolved: 983693-02-7927CemyulsWvwjcshypop chest pain (20 sources)Chest pain; Translations: [Other chest pain]Onset: 09-11-2022 46-64-1641XxwrwaxqXjqrnnisgbv deficiencies (20 sources)Vitamin D deficiency; Translations: [Vitamin D deficiency, unspecified]Onset: 308464-04-0836ObeepfuGhckoxevbsd deficiencies (20 sources)Cobalamin deficiency; Translations: [Deficiency of other specified B group vitamins]Onset: 311441-18-1393RcdumvmbUftvb aftercare (1 source)assisted (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; Translations: [SKILLED NURSING CURRENT USE OF ASPIRIN]Onset: 70-00-0404EasksxleVrowk aftercare (1 source)assisted (current) use of oral hypoglycemic drugs; Translations: [[facility] [employer] [facility] USE ORAL HYPOGLYCEMIC DX]Onset: 92-37-6568JwlbxgxxBdaut aftercare (1 source)Other residential (current) drug therapy; Translations: [OTH SKILLED NURSING CURRENT DRUG THERAPY]Onset: 26-34-5319WytimlamBseyo gastrointestinal disorders (20 sources)Irritable bowel syndrome with diarrhea; Translations: [Irritable bowel syndrome with diarrhea]Onset: 120841-25-7750AwhqzmvQfine hereditary and degenerative nervous system conditions (20 sources)Restless legs; Translations: [Restless legs syndrome]Onset: 393666-70-7790AsbsvfgWvnzr hereditary and degenerative nervous system conditions (1 source)Restless legs syndrome; Translations: [RESTLESS LEGS SYNDROME]Onset: 22-71-5204KjegeakCgtvn liver diseases (1 source)Fatty (change of) liver, not elsewhere classified; Translations: [FATTY CHANGE LIVER NEC]Onset: 75-51-7696JdusmeoTcjsu lower respiratory disease (4 sources)Shortness of breath; Translations: [SHORTNESS OF BREATH]Onset: 28-57-7140TuvakydrKmtjq nervous system disorders (12 sources)Chronic pain; Translations: [Other chronic pain]ChronicOther nervous system disorders (12 sources)Sleep-wake schedule disorder, delayed phase type; Translations: [Circadian rhythm sleep disorder, delayed sleep phase type]ChronicOther nervous system disorders (4 sources)Other chronic painOnset: 11-10-2021 Resolved: 31-14-5400YlbvrgoLchve nervous system disorders (1 source)Circadian rhythm sleep disorder, delayed sleep phase typeChronicOther non-traumatic joint disorders (1 source)Chronic pain of left upper limb; Translations: [Pain in left shoulder] 10-74-6740HxqkqbucWsllg nutritional; endocrine; and metabolic disorders (20 sources)Hypomagnesemia; Translations: [Hypomagnesemia]Onset: 04-30-2023 58-84-7727EsuynpsXzuld nutritional; endocrine; and metabolic disorders (20 sources)Morbid obesity; Translations: [Morbid (severe) obesity due to excess calories]60-72-1079ItrlqrvDvive nutritional; endocrine; and metabolic disorders (8 sources)Morbid (severe) obesity due to excess calories; Translations: [Morbid obesity]Onset: 29-38-4621XgzzazyHafht nutritional; endocrine; and metabolic disorders (1 source)Body mass index (BMI) 50.0-59.9, adult; Translations: [BODY MASS INDEX BMI 50.0-59.9 ADULT]Onset: 05-43-3244BgaooifKdqdt nutritional; endocrine; and metabolic disorders (1 source)Body mass index (BMI) 45.0-49.9, adult; Translations: [BODY MASS INDEX BMI 45.0-49.9 ADULT]Onset: 06-06-6812QlwrtpzKzcqc nutritional; endocrine; and metabolic disorders (6 sources)Hypomagnesemia; Translations: [Disorders of magnesium metabolism] Onset: 305794-45-5501QjqgzpyWaxfd nutritional; endocrine; and metabolic disorders (20 sources)Severe obesity; Translations: [Class 3 severe obesity due to excess calories with serious comorbidity and body mass index (BMI) of 45.0 to 49.9 in adult ([facility])]Onset: 629078-66-6041DnqipogTvfwc nutritional; endocrine; and metabolic disorders (11 sources)Obesity caused by energy imbalance; Translations: [Morbid (severe) obesity due to excess calories]Onset: 818317-74-9539TrcmjknGxkhk nutritional; endocrine; and metabolic disorders (2 sources)Body mass index (BMI) 39.0-39.9, adultOnset: 631268-79-4999 ChronicOther nutritional; endocrine; and metabolic disorders (2 sources)Body mass index (BMI) 40.0-44.9, adultOnset: 688730-69-5305 ChronicOther nutritional; endocrine; and metabolic disorders (20 sources)Hyperuricemia; Translations: [Hyperuricemia without signs of inflammatory arthritis and tophaceous disease]Onset: 925686-09-5818 EpisodicOther screening for suspected conditions (not mental disorders or infectious disease) (20 sources)Encounter for screening mammogram for malignant neoplasm of breast; Translations: [Abnormal findings on diagnostic imaging of other parts of musculoskeletal system]Onset: 46-95-2763WrfdwzpzGybbe upper respiratory disease (20 sources)Seasonal allergy; Translations: [Other seasonal allergic rhinitis] Onset: 648106-21-9253WxyxcqlXkmkzvfp codes; unclassified (12 sources)Sleep apnea; Translations: [Sleep apnea, unspecified]ChronicResidual codes; unclassified (20 sources)Obstructive sleep apnea syndrome; Translations: [Obstructive sleep apnea (adult) (pediatric)]Onset: 133875-55-3479UawppbvWkfeamup codes; unclassified (2 sources)Obstructive sleep apnea (adult) (pediatric); Translations: [OBSTRUCTIVE SLEEP APNEA]Onset: 08-99-4613FlsuwimVukzdeqc codes; unclassified (15 sources)Localized edema; Translations: [Localized edema]26-45-1633Pwnlrsnb Spondylosis; intervertebral disc disorders; other back problems (20 sources)Intervertebral disc prolapse; Translations: [Other intervertebral disc displacement, thoracolumbar region]Onset: 09-29-2021 Resolved: 98-77-6724ZmqezndBpohtvgagnc; intervertebral disc disorders; other back problems (20 sources)Radiculopathy, lumbar region; Translations: [Chronic low back pain] Onset: 08-30-2021 Resolved: 86-42-0173BadvbspyCbxpksa (2 sources)Syncope and collapse; Translations: [Syncope and collapse]Onset: 31-15-9012BplavvcdSvzkjyzbseyw (1 source)CHRN KIDNEY DISEASE STG 3 UNSP; Translations: [CHRN KIDNEY DISEASE STG 3 UNSP]Onset: 42-31-4189Ffmmnukauxdf (1 source)LOW BACK PAIN, UNSPECIFIED; Translations: [LOW BACK PAIN, UNSPECIFIED] Onset: 95-66-7696Lnfdlsupxkyb (3 sources)CONTACT W/AND (SUSP) EXPOS COVID-19; Translations: [CONTACT W/AND (SUSP) EXPOS COVID-19]Onset: 65-49-0177Itryvgjixymo (1 source)Chronic pain of left upper limbUnclassified (2 sources)M25.512 - Pain in left shoulder,G89.29 - Other chronic pain Past or Other Problems Problem ClassificationProblemDateDocumented DateEpisodic/ChronicAbdominal hernia (20 sources)Ventral hernia without obstruction or gangrene; Translations: [Disorder of abdominal wall]Onset: 473113-17-2476PpzmpqiaEffymkdzu pain (20 sources)Unspecified abdominal pain; Translations: [Left lower quadrant pain] Onset: 02-21-2022 Resolved: 74-69-9353JjpaipffGvtgtcqa of urinary tract (20 sources)Kidney stone; Translations: [Calculus of kidney]Onset: 07-02-2023 93-99-8627SxybzisbFcuadpw dysrhythmias (20 sources)Bradycardia; Translations: [Bradycardia, unspecified]Onset: 151485-52-3675FcinxbswLbnflwqkah and other anemia (4 sources)Anemia, unspecified; Translations: [ANEMIA UNSPECIFIED]Onset: 34-61-7572OictmkyePqtfdrcfrr and other anemia (20 sources)Anemia; Translations: [Anemia, unspecified]Onset: 04-30-2023 Resolved: 685770-60-7045WmwlusphUmjtsxcnu of teeth and jaw (20 sources)Infection of tooth; Translations: [Periapical abscess without sinus] Onset: 09-20-2023 Resolved: 992872-53-0329RrqkolhzGdufrqqhtxrwp symptoms and ill-defined conditions (20 sources)Delay when starting to pass urine; Translations: [Hesitancy of micturition]Onset: 759500-59-2491VwwsiuxmCibypgve; including migraine (1 source)Headache; including migraineIntestinal infection (20 sources)Enterocolitis due to Clostridium difficile, not specified as recurrent; Translations: [Clostridium difficile diarrhea]Onset: 12-25-2021 Resolved: 757611-53-7732UkgdrpgnFrpm disorders (20 sources)Mood disordersOnset: 861310-14-8658Kpyboki (20 sources)Opportunistic mycosis; Translations: [Candidiasis, unspecified] Onset: 10-03-2023 Resolved: 330914-69-0035QcnxcaklZixn wounds of head; neck; and trunk (4 sources)Unspecified open wound of unspecified part of neck, initial encounter; Translations: [UNS OPEN WOUND UNS PART NECK INIT]Onset: 01-12-2022 EpisodicOther and unspecified benign neoplasm (20 sources)History of polyp of colon; Translations: [History of colon polyps] Onset: 052305-73-1984QsizengpTyboq and unspecified benign neoplasm (20 sources)Polyp of cecum; Translations: [Benign neoplasm of cecum]Onset: 732282-55-1843UoviuoogGrikc connective tissue disease (1 source)Pain in right leg; Translations: [PAIN IN RIGHT LEG]Onset: 05-31-2022 EpisodicOther connective tissue disease (1 source)Arthrodesis status; Translations: [ARTHRODESIS STATUS]Onset: 64-99-9737IafgmqcrAbmtc connective tissue disease (1 source)Myalgia, unspecified site; Translations: [MYALGIA UNSPECIFIED SITE] Onset: 33-11-9238VfdyeakcXbvvs connective tissue disease (20 sources)Swelling of bilateral lower limbs; Translations: [Other specified soft tissue disorders]Onset: 04-30-2023 Resolved: 208297-79-1532EwaypxjsHanre connective tissue disease (20 sources)Bilateral heel pain; Translations: [Pain in right foot]Onset: 601362-89-7264FbiplzxoNgpeg connective tissue disease (20 sources)Spasm; Translations: [Other muscle spasm]Onset: 257803-02-4414 EpisodicOther connective tissue disease (20 sources)Foot pain; Translations: [Pain in left foot]Onset: 07-15-2024 41-66-7588JtdqejpdOgrvu gastrointestinal disorders (4 sources)Diarrhea, unspecified; Translations: [DIARRHEA UNSPECIFIED]Onset: 17-31-8278JfhbbfalHqhsr gastrointestinal disorders (20 sources)History of bariatric surgical procedure; Translations: [Bariatric surgery status]Onset: 057449-68-8687BcqxrszeYhctc liver diseases (20 sources)Elevated liver enzymes level; Translations: [Abnormal levels of other serum enzymes]Onset: 244485-24-4876OrcepjxeAfder lower respiratory disease (1 source)Dyspnea, unspecified; Translations: [DYSPNEA UNSPECIFIED]Onset: 68-81-9503GybyvqldJbibr lower respiratory disease (20 sources)Dyspnea; Translations: [Dyspnea, unspecified]Onset: 07-02-2023 97-28-9069RbegxhecSdzvr non-traumatic joint disorders (20 sources)Acute ankle pain; Translations: [Pain in left ankle and joints of left foot]Onset: 869301-58-1378ImlnfqrbRsgzv nutritional; endocrine; and metabolic disorders (20 sources)Body mass index 40+ - severely obese; Translations: [Body mass index (BMI) 50.0-59.9, adult]Onset: 05-03-2023 Resolved: 468496-47-5006EvljlzvTspxb nutritional; endocrine; and metabolic disorders (6 sources)Hyperuricemia without signs of inflammatory arthritis and tophaceous disease; Translations: [Other abnormal blood chemistry]Onset: 03-11-2024 27-95-0496XgsdxyhnQdryi upper respiratory infections (20 sources)Acute pansinusitis; Translations: [Acute pansinusitis, unspecified] Onset: 03-06-2024 Resolved: 022986-03-7240LqzokvfpPgcyareg codes; unclassified (8 sources)Localized edema; Translations: [Edema]Onset: 67-74-6182Vtcbufex Residual codes; unclassified (1 source)Family history of malignant neoplasm of other organs or systems; Translations: [FAM HX MALIG NEOPLASM OTH ORGN/SYS]Onset: 31-60-5026Rfupitho Residual codes; unclassified (1 source)Acquired absence of both cervix and uterus; Translations: [ACQUIRED ABSENCE BOTH CERVIX AND UTERUS]Onset: 66-35-1539VolagnhpGqusxrcr codes; unclassified (1 source)Acquired absence of ovaries, bilateral; Translations: [ACQUIRED ABSENCE OVARIES BILATERAL]Onset: 49-36-1003AbtruuzzFznsijfp codes; unclassified (4 sources)Procedure and treatment not carried out due to patient leaving prior to being seen by health care provider; Translations: [PROC AND TX NOT CARRIED OUT PT LEAVE]Onset: 07-45-7691KgufihwuYhrdkzij codes; unclassified (20 sources)Edema of lower extremity; Translations: [Localized edema]Onset: 108448-37-9463SuppcurgZfrijalg codes; unclassified (20 sources)Insomnia; Translations: [Insomnia, unspecified]Onset: 07-02-2023 42-67-7033UixigfexUuloiouw codes; unclassified (20 sources)H/O: urinary disease; Translations: [Personal history of other specified conditions]Onset: 07-02-2023 Resolved: 388558-95-9381LfhiybleGriigxbhchmk (1 source)CONTACT W/AND (SUSP) EXPOS COVID-19; Translations: [CONTACT W/AND (SUSP) EXPOS COVID-19]Onset: 01-90-5373Aypysejjnicz (1 source)Periodic exam (chief complaint)Onset: 98-73-4259Pjkykghenafz (1 source)Endo (chief complaint)Onset: 70-47-5084Iynushrelhly (1 source)fill (chief complaint)Onset: 21-46-2429Cwjbxdt tract infections (20 sources)Escherichia coli urinary tract infection; Translations: [Urinary tract infection, site not specified]Onset: 07-05-2023 Resolved: 127456-60-2604Vimtazcj Results Test NameValueInterpretationReference RangeFacilityActivated partial thromboplastin time (aPTT) in platelet poor plasma by coagulation aOrdered By: Andrius Shieldsraitis on 41-61-6406iSRE Coag (PPP) [Time]27.9 s22.3-36.2FPike Community HospitalBasophils Auto (Bld) [#/Vol]Ordered By: Andrius Giedraitis on 42-52-2277Oogxtkeon (Bld) [#/Vol]0.1 10 3/uL0.0-0.1FPike Community HospitalBasophils/100 WBC Auto (Bld)Ordered By: Andrius Giedraitis on 65-53-9157Wduqpcovc/100 WBC (Bld)1.0 %0.2-2.0[facility] CenterEosinophils/100 WBC Auto (Bld)Ordered By: Andrius Giedraitis on 35-22-0370Vbkvnfckwbc/100 WBC (Bld)3.9 %0.9-7.0[facility] Erythrocyte distribution width Auto (RBC) [Ratio]Ordered By: Andrius Giedraitis on 84-56-4458Smqkdoythiw distribution width (RBC) [Ratio]12.8 %11.0-15.0 [facility] CenterGlomerular filtration rate (GFR) estimation in non- AmericanOrdered By: Andrius Giedraitis on 08-77-1414OPD/1.73 sq M.predicted among non-blacks MDRD (S/P/Bld) [Vol rate/Area]46 mL/min/{1.73_m2} Low>=60 mL/min/1.73m 2FPike Community HospitalHematocrit Auto (Bld) [Volume fraction]Ordered By: Marcella Conway on 10-32-0746Kzmntqmycz (Bld) [Volume fraction]34.8 %Low36.0-48.0[facility] CenterHemoglobin [Mass/volume] in BloodOrdered By: Marcella Conway on 67-49-8526Sigxhneozm (Bld) [Mass/Vol]11.3 g/dLLow12.0-16.0[facility] CenterINR in Platelet poor plasma by Coagulation assayOrdered By: Marcella Conway on 65-19-4206JEY Coag (PPP) [Relative time]1.01 {INR}[facility] CenterComment on above:DESIRED INR:2.0-3.0 CONDITIONS NOT LISTED BELOW2.5-3.5 FOR PROSTHETIC HEART VALVE REPLACEMENT2.5-3.5 RECURRENT THROMBOSISLaboratory - Chemistry and Chemistry - challengeOrdered By: Marcella Conway on 01-13-2025 Calcium [Mass/Vol]9.4 mg/dL8.5-10.1FPike Community HospitalChloride [Moles/Vol]108 mmol/CAiry99-751OywcsfvhcThe University Of Toledo Medical CenterCO2 [Moles/Vol] 27.8 mmol/L21.0-32.0[facility] CenterCreatinine [Mass/Vol]1.23 mg/dLHigh0.55-1.02[facility] CenterGFR/1.73 sq M.predicted MDRD (S/P/Bld) [Vol rate/Area]55 mL/min/{1.73_m2}Low>=60 mL/min/1.73m 2FPike Community HospitalGlucose [Mass/Vol]92 mg/aE84-955HtvytchksThe University Of [facility]edo Medical CenterPotassium [Moles/Vol]4.5 mmol/L3.5-5.1FCleveland Clinic Union Hospitalodium [Moles/Vol]143 mmol/M964-791UmoscseciThe [facility] Medical CenterUrea nitrogen [Mass/Vol]28.0 mg/dLHigh7.0-18.0[facility] CenterUrea nitrogen/Creatinine [Mass ratio]22.8 mg/mgThe [facility] Center Laboratory - Hematology and Cell countsOrdered By: Andrius Giedraitis on 53-48-9940Amnukrat granulocytes/100 WBC (Bld)0.2 %0.0-0.5FPike Community HospitalLeukocytes [#/volume] corrected for nucleated erythrocytes in Blood by Automated counOrdered By: Andrius Giedraitis on 64-06-4303GOT corrected for nucl RBC Auto (Bld) [#/Vol]4.9 10 3/uL4.0-11.0[facility] CenterLymphocytes Auto (Bld) [#/Vol]Ordered By: Andrius Giedraitis on 01-13-2025 Lymphocytes (Bld) [#/Vol]1.6 10 3/uL1.2-3.8[facility] Lymphocytes/100 WBC Auto (Bld)Ordered By: Andrius Giedraitis on 01-13-2025 Lymphocytes/100 WBC (Bld)33.1 %20.5-60.0[facility] Auto (RBC) [Entitic mass]Ordered By: Andrius Giedraitis on 05-05-9974CRT (RBC) [Entitic mass]30.1 pg26.7-34.0[facility] Clinic FoundationHC Auto (RBC) [Mass/Vol]Ordered By: Andrius Giedraitis on 81-17-7083KZAT (RBC) [Mass/Vol]32.5 g/dL29.9-35.2FPike Community HospitalMCV Auto (RBC) [Entitic vol] Ordered By: Andrius Giedraitis on 12-48-1321QJQ (RBC) [Entitic vol]92.8 fL 81.0-99.0[facility] CenterMonocytes Auto (Bld) [#/Vol]Ordered By: Andrius Giedraitis on 91-98-1758Wdtlfexkd (Bld) [#/Vol]0.3 10 3/uL0.3-0.8 [facility] CenterMonocytes/100 WBC Auto (Bld)Ordered By: Andrius Giedraitis on 05-90-7682Juqwlsqdf/100 WBC (Bld)6.7 %1.7-12.0[facility] CenterNeutrophils Auto (Bld) [#/Vol]Ordered By: Andrius Giedraitis on 15-25-3882Mznqcmomnjv (Bld) [#/Vol]2.7 10 3/uL1.4-6.5FPike Community HospitalNeutrophils/100 WBC Auto (Bld)Ordered By: Andrius Giedraitis on 01-13-2025 Neutrophils/100 WBC (Bld)55.1 %43.0-75.0[facility] CenterNo Panel InformationOrdered By: Andrius Giedraitis on 80-81-6114Rdzfqwnylyt # (Auto)0.2 10 3/uL0.0-0.7FPike Community HospitalImmature Granulocyte # (Auto)0.01 10 3/uL0.00-0.03[facility] CenterPlatelet mean volume Auto (Bld) [Entitic vol]Ordered By: Andrius Giedraitis on 11-33-0736Trruuchg mean volume (Bld) [Entitic vol]10.9 fL9.5-13.5FP[facility] Platelets Auto (Bld) [#/Vol]Ordered By: Andrius Giedraitis on 01-13-2025 Platelets (Bld) [#/Vol]253 10 3/jZ710-291AgykyyaxxThe [facility] Center Prothrombin time (PT)Ordered By: Andrius Giedraitis on 82-80-5406RE Coag (PPP) [Time]10.7 s9.0-11.6FPike Community HospitalRBC Auto (Bld) [#/Vol] Ordered By: Andrius Giedraitis on 62-13-8770AVM (Bld) [#/Vol]3.75 10 6/uLLow 4.20-5.40Mary[facility] Hospitalerum or plasma anion gap determinationOrdered By: Andrius Giedraitis on 16-38-5105Ivffx gap [Moles/Vol] 11.7 mmol/LFPike Community HospitalANESon 75-87-2355NONB Attestation signed by Tk Godoy MD at 12/12/2024 8:20 AM Tk Godoy MD, MPH, [facility], [facility], [facility] Interventional Cardiology Pager Email: [email or web address] Patient: Sherly Humphreys Procedure Information Date/Time: 12/12/24829 Procedure: Coronary angiography (Left) - PC APPROVED 11/26-12/25 Location: [facility] MANAGER OF FINANCIAL REPORTING 3 / [facility] VASCULAR [facility] (Cath) Providers: Tk Godoy [...] attending. Additional Equipment Requests Austin Earl MD Training Facilitator, PGY-4 [facility] 12/12/24 8:07 [facility] 91-88-0580SX Attestation signed by Tk Godoy MD at [...] me. Additional Comments: Tk Godoy MD, MPH, [facility], [facility], [facility] Interventional Cardiology Pager Email: [email or web address] History Of Present Illness Sherly Humphreys [...] Resource Strain: High Risk (11/18/2024) Received from [facility] Overall Financial Resource Strain (CARDIA) Difficulty of Paying Living Expenses: Hard Food Insecurity: Food Insecurity Present (11/18/2024) Received from [facility] Hunger Vital Sign Worried About Running Out of Food in the Last Year: Often true Ran Out of Food in the Last Year: Often true Transportation Needs: No Transportation Needs (11/18/2024) Received from [facility] PRAPARE - Transportation Lack of Transportation (Medical): No Lack of Transportation (Non-Medical): No Physical Activity: Inactive (11/18/2024) Received from [facility] Exercise Vital Sign Days of Exercise per Week: 0 days Minutes of Exercise per Session: 0 min Stress: Stress Concern Present (11/18/2024) Received from [facility] [employer] - Occupational Stress Questionnaire Feeling of Stress : To some extent Social Connections: Socially Isolated (11/18/2024) Received from [facility] Social Connection and Isolation Panel [NHANES] Frequency of Communication with Friends and Family: More than three times a week Frequency of Social Gatherings with Friends and Family: Once a week Attends Rastafarian Services: Never Active Member of Clubs or Organizations: No Attends Club or Organization Meetings: Never Marital Status: Never Intimate Partner Violence: Not At Risk (11/18/2024) Received from [facility] Humiliation, Afraid, Rape, and Kick questionnaire Fear of Current or Ex-Partner: No Emotionally Abused: No Physically Abused: No Sexually Abused: No Housing Stability: Low Risk (11/18/2024) Received from [facility] Housing Stability Vital Sign [...] Breath sounds: Normal breath (more content not included)...[facility] CenterNURSNOTEon 38-46-1481WODWIBGMZS educated pt on d/c instructions. This included: [...] wheeled off of unit with all of belongings.[facility] CenterOrders Onlyon 48-53-0112Ihagzr [id number] Sherly Humphreys 1970 F Date Provider Department Center 12/10/2024 [id number], HISTORICAL CARD [facility] Family History Problem Relation Age of Onset Cancer Mother Heart attack Father Family Status - Relation Status Age at Mother Father DeceasedNormalUniversity [facility] HospitalALL CBC WITH AUTO DIFFon 23-62-4266UKXHALCZE ABSOLUTE AUTO0.1NOM[facility] HealthcareBasophils/100 WBC (Bld)1 % 0.2 - 2.0 %[facility] HealthcareEosinophils/100 WBC (Bld)3.1 %0.9 - 7.0 %[facility] HealthcareErythrocyte distribution width (RBC) [Ratio]13.1 %11.0 - 15.0 %[facility] HealthcareHematocrit (Bld) [Volume fraction]37 %36.0 - 48.0 %[facility] Hemoglobin (Bld) [Mass/Vol]11.9 g/dLLow12.0 - 16.0 g/dLNONorth Kansas City HospitalIMMATURE GRANULOCYTES ABS AUTO0.01NONorth Kansas City HospitalImmature granulocytes/100 WBC (Bld)0.2 % 0.0 - 0.5 %[facility] HospitalInterpretation and review of laboratory results AbnormalNONorth Kansas City HospitalLYMPHOCYTES ABSOLUTE AUTO1.4NON[facility] Lymphocytes/100 WBC (Bld)24.4 %20.5 - 60.0 %[facility] HospitalH (RBC) [Entitic mass]29.8 pg26.7 - 34.0 pgNOOzarks Community HospitalHC (RBC) [Mass/Vol]32.2 g/dL29.9 - 35.2 g/dLBarton County Memorial HospitalV (RBC) [Entitic vol]92.7 fL81.0 - 99.0 fLCooper County Memorial HospitalMONOCYTES ABSOLUTE AUTO0.3NOME HealthcareMonocytes/100 WBC (Bld)5.2 % 1.7 - 12.0 %[facility] HospitalNEUTROPHILS ABSOLUTE AUTO3.8NONorth [facility] Neutrophils/100 WBC (Bld)66.1 %43.0 - 75.0 %[facility] HospitalPlatelet mean volume (Bld) [Entitic vol]10.8 fL9.5 - 13.5 fLNONorth Kansas City HospitalTB EO #0.2[facility] TB [id number] [facility] RBC3.99LowNOMadison Medical Center WBC5.8NONorth [facility] CLINISYNCNOME Qstrupdviv12yn 94-95-139767Yvpxzcuuq stress test result from 11/13/2024: Tk Godoy MD to Me (Selected Message) EE 11/18/24 4:19 AM Please let her know her stress test is abnormal and I would recommend cardiac cath: CORS via L radial approach. Thanks Spoke with Sherly and made her aware. Lab orders [facility]. She verbalized understanding.NormalUnGerman HospitalAlbumin [Mass/volume] in Serum or Plasma by Bromocresol green (BCG) dye binding methoOrdered By: Halle Mac on 80-38-2878Wpozcul BCG dye [Mass/Vol]4.1 g/dL3.5-5.7FPike Community HospitalAppearance of UrineOrdered By: Halle Mac on 11-18-2024 Appearance (U)ClearNormalClearThe University [facility]edo Medical CenterComment on above: Order Comment: Name Collection Type:: Clean-Voided MidstreamPerformed By: #### URMACRERAT, ADDONUAPLUS, PROCRERAT #### [facility] [address] [place] [address] USABacteria [Presence] in Urine by AutomatedOrdered By: Halle Mac on 28-61-1860Pgpozihc Auto Ql (U)None seen [HPF]None SeenThe University Of Toledo Medical CenterBilirubin Test strip Ql (U)Ordered By: Halle Mac on 06-95-4409Bizeraicq Ql (U)1+HighNegativeThe University Of [facility]edo Medical CenterCalcium [Mass/volume] in Serum or PlasmaOrdered By: Halle Mac on 41-02-4204Iqheepm [Mass/Vol]9.6 mg/dLNormal8.6-10.3FPike Community HospitalComment on above:Performed By: #### URIC, FE and TIBC, [id number], GEENA, MG, RENAL, CBCNO, [id number], PTH #### [facility] [address] [place] [address] USACarbon dioxide, total [Moles/volume] in Serum or Plasma Ordered By: Halle Mac on 33-57-3640TI9 [Moles/Vol]28.3 mmol/JCvdowg40.0-31.0 [facility] CenterComment on above:Performed By: #### URIC, FE and TIBC, [id number], GEENA, MG, RENAL, CBCNO, [id number], PTH #### [facility] [address] [place] [address] USAChloride [Moles/volume] in Serum or PlasmaOrdered By: Halle Mac on 40-35-4032Tszdvjsk [Moles/Vol]111 mmol/CYqqn85-895KhltwfhhjThe University Of Toledo Medical CenterComment on above:Performed By: #### URIC, FE and TIBC, [id number], GEENA, MG, RENAL, CBCNO, [id number], PTH #### [facility] [address] [place] [address] USAColor of Urine by AutoOrdered By: Halle Mac on 68-34-5976Vhjko (U)YellowNormalYellowThe University [facility]edo Medical CenterComment on above:Order Comment: Name Collection Type:: Clean-Voided MidstreamPerformed By: #### URMACRERAT, ADDONUAPLUS, PROCRERAT #### [facility] [address] [place] [address] USACreatinine [Mass/volume] in Serum or PlasmaOrdered By: Halle Mac on 93-64-2485Ckswhxmtyb [Mass/Vol]1.38 mg/dLHigh0.60-1.20[facility] CenterComment on above:Performed By: #### URIC, FE and TIBC, [id number], GEENA, MG, RENAL, CBCNO, [id number], PTH #### [facility] [address] [place] [address] USACreatinine [Mass/volume] in UrineOrdered By: Halle Mac on 39-07-1483Nxijreymbv (U) [Mass/Vol]270.00 mg/dLThe University Of Toledo Medical CenterComment on above:No reference range establishedDipstick and Microscopicon 36-64-0171Fvvwcira,UrineNone SeenNormalNone SeenThe [facility] Comment on above:Order Comment: Name Collection Type:: Clean-Voided Midstream Performed By: #### URMACRERAT, ADDONUAPLUS, PROCRERAT #### [facility] [address] [place] [id number] USABilirubin,Urine1+NormalNegativeThe [facility] Physician GroupComment on above:Order Comment: Name Collection Type:: Clean-Voided MidstreamPerformed By: #### URMACRERAT, ADDONUAPLUS, PROCRERAT #### [facility] [address] [place] [id number] USAGlucose Ql (U)NormalNormalNormalThe [facility] Physician GroupComment on above:Order Comment: Name Collection Type:: Clean-Voided MidstreamPerformed By: #### URMACRERAT, ADDONUAPLUS, PROCRERAT #### [place] [address] USAHyaline Casts,Tgitv2-41Fmzmuj6-1Vcm [facility] Physician GroupComment on above:Order Comment: Name Collection Type:: Clean-Voided MidstreamPerformed By: #### URMACRERAT, ADDONUAPLUS, PROCRERAT #### [place] [id number] USAMucus,UrineRareNormalThe [facility] Physician GroupComment on above:Order Comment: Name Collection Type:: Clean-Voided MidstreamResult Comment: PERFORMED BY: [place] [address] PATHOLOGIST SOCIAL SCIENCES DEPARTMENT CHAIR KRISHAN PAEZ M.D.Performed By: #### URMACRERAT, ADDONUAPLUS, PROCRERAT #### [place] [address] USANitrite,UrineNegativeNormalNegativeThe [facility] Physician GroupComment on above:Order Comment: Name Collection Type:: Clean-Voided MidstreamPerformed By: #### URMACRERAT, ADDONUAPLUS, PROCRERAT #### [place] [address] USAOccult Blood,UrineNegativeNormalNegativeThe [facility] Physician GroupComment on above:Order Comment: Name Collection Type:: Clean- Voided MidstreamResult Comment: PERFORMED BY: [place] [address] PATHOLOGIST SOCIAL SCIENCES DEPARTMENT CHAIR KRISHAN PAEZ M.D.Performed By: #### URMACRERAT, ADDONUAPLUS, PROCRERAT #### [place] [address] USAProtein,UrineTraceNormalNegativeThe [facility] Physician GroupComment on above:Order Comment: Name Collection Type:: Clean-Voided MidstreamPerformed By: #### URMACRERAT, ADDONUAPLUS, PROCRERAT #### [facility] [address] [place] [address] USARBC,Lpfsl5-8Rybife4-9Yho [facility] Physician GroupComment on above:Order Comment: Name Collection Type:: Clean-Voided MidstreamPerformed By: #### URMACRERAT, ADDONUAPLUS, PROCRERAT #### [facility] [address] [place] [address] USASpecificy Murphys,Urine1.320Udbw7.001-1.030The [facility] Physician GroupComment on above:Order Comment: Name Collection Type:: Clean- Voided MidstreamPerformed By: #### URMACRERAT, ADDONUAPLUS, PROCRERAT #### [place] [address] USASquamous Epithelial Cell,Eqtjw7-8Xgxerz5-2Iez [facility] Physician GroupComment on above:Order Comment: Name Collection Type:: Clean- Voided MidstreamPerformed By: #### URMACRERAT, ADDONUAPLUS, PROCRERAT #### [place] [address] USAUrobilinogen,Urine2 mg/dLNormalNormalThe [facility] Physician GroupComment on above:Order Comment: Name Collection Type:: Clean- Voided MidstreamPerformed By: #### URMACRERAT, ADDONUAPLUS, PROCRERAT #### [facility] [address] [place] [address] USAWBC,Rdegq9-9Sabcuq8-9Trb [facility] Physician GroupComment on above:Order Comment: Name Collection Type:: Clean-Voided MidstreamPerformed By: #### URMACRERAT, ADDONUAPLUS, PROCRERAT #### [facility] [address] [place] [address] USAEpithelial cells.squamous [#/area] in Urine sediment by Automated countOrdered By: Halle Mac on 28-46-4242Mdyuehaicc cells.squamous Auto (Urine sed) [#/Area]1-2 [HPF]0-2FPike [facility] Hospital Erythrocyte distribution width [Ratio] by Automated countOrdered By: Halle Mac on 12-97-6461Uhdcdghaxhb distribution width (RBC) [Ratio]13.9 %Normal 11.9-15.3FPike Community HospitalComment on above:Performed By: #### URIC, FE and TIBC, [id number], GEENA, MG, RENAL, CBCNO, [id number], PTH #### [facility] [address] [place] [address] USAErythrocytes [#/area] in Urine sediment by Automated count Ordered By: Halle Mac on 76-80-1759VDY Auto (Urine sed) [#/Area]1-2 [HPF]0-4 [facility] CenterErythrocytes [#/volume] in Blood by Automated countOrdered By: Halle Mac on 80-90-8387AKW (Bld) [#/Vol]3.67 10*6/uLNormal 3.60-5.00[facility] CenterComment on above:Performed By: #### URIC, FE and TIBC, [id number], GEENA, MG, RENAL, CBCNO, [id number], PTH #### [facility] [address] [place], [place] [address] USAFerritin [Mass/volume] in Serum or PlasmaOrdered By: Halle Mac on 37-94-6869Jhalygat [Mass/Vol]235.3 ng/vDYycbyi46.0-306.8The University Of Toledo Medical CenterComment on above:Performed By: #### URIC, FE and TIBC, [id number], GEENA, MG, RENAL, CBCNO, [id number], PTH #### [facility] [address] [place] [address] USAFolate [Mass/volume] in Serum or PlasmaOrdered By: Halle Mac on 14-01-6870Dlvppe [Mass/Vol]9.8 ng/mL>5.9The [facility] Of Toledo Medical CenterComment on above:Folate reference range: >5.9 ng/mlThe WHO technical consultation on folate and vitamin z22akjtwkaryxjs has determined that folate concentrations lessthan 4 ng/ml are considered deficient.Glucose [Mass/volume] in Serum or PlasmaOrdered By: Halle Mac on 22-73-3788Lamrqhy [Mass/Vol]88 mg/yXKeewgl41-802KhljszmdhThe University Of Toledo Medical CenterComment on above:ADA recommended reference rangeRandom Glucose Reference [...] Mellitus. ADA recommended reference rangePerformed By: #### URIC, FE and TIBC, [id number], GEENA, MG, RENAL, CBCNO, [id number], PTH #### [facility] [address] [place] [id number] USAGlucose [Mass/volume] in Urine by Test stripOrdered By: Halle Mac on 56-49-9174Jlkuqqw Test strip (U) [Mass/Vol]Normal mg/dLNormal The [facility] Medical CenterHematocrit [Volume Fraction] of Blood by Automated countOrdered By: Halle Mac on 51-71-7591Anphovlqzk (Bld) [Volume fraction]33.1 %Low34.0-46.4FPike Community HospitalComment on above: Performed By: #### URIC, FE and TIBC, PETC61VLA, GEENA, MG, RENAL, CBCNO, [id number], PTH #### [facility] [address] [place] [id number] USAHemoglobin Test strip Ql (U)Ordered By: Halle Mac on 07-35-1460Gcyqkdzhff Ql (U)NegativeNegativeThe University Of [facility] Hemoglobin [Mass/volume] in BloodOrdered By: Halle Mca on 11-18-2024 Hemoglobin (Bld) [Mass/Vol]10.8 g/dLLow11.8-15.4FPike Community HospitalComment on above:Performed By: #### URIC, FE and TIBC, XKZF14IVG, GEENA, MG, RENAL, CBCNO, [id number], PTH #### [place] [address] USAHemogram CBC Without Diffon 62-19-7986Hhsc Corpuscular HGB Conc32.7 g/iKBvmojf04.0-35.0The [facility] Physician GroupComment on above: Performed By: #### URIC, FE and TIBC, DCZP17NMD, GEENA, MG, RENAL, CBCNO, CVYH18GC, PTH #### [place] [address] USAWhite Blood Count9.7 [CFU]/mLNormal3.8-11.6The [facility] Physician GroupComment on above:Performed By: #### URIC, FE and TIBC, VMTC71YQB, GEENA, MG, RENAL, CBCNO, YSQU47KK, PTH #### [place] [address] USAHyaline casts [#/area] in Urine sediment by Automated countOrdered By: Halle Mac on 10-69-2078Iqteoim casts Auto (Urine sed) [#/Area]9-19 [LPF]High0-8The [facility] Of [facility]edo Medical CenterIron [Mass/volume] in Serum or PlasmaOrdered By: Halle Mac on 08-18-3629Crha [Mass/Vol]64 ug/dL Hxmxlb30-167QfkespotuThe University Of Toledo Medical CenterComment on above:Performed By: #### URIC, FE and TIBC, PQIP61ROT, GEENA, MG, RENAL, CBCNO, NWVF14XW, PTH #### [place] [address] USAIron and TIBC Profileon 11-18-2024% Iron Njqucbritd34.4 % Ygf04-95Vxg [facility] Physician GroupComment on above:Performed By: #### URIC, FE and TIBC, KYUB64WZY, GEENA, MG, RENAL, CBCNO, ERAP24MV, PTH #### [place] [address] USATotal Iron Binding Kaxlzwqq394 ug/cAYcswop970-899Hwc [facility] Physician GroupComment on above:Performed By: #### URIC, FE and TIBC, BKLC53MXM, GEENA, MG, RENAL, CBCNO, [id number], PTH #### [facility] [address] [place] [address] USAKetones [Presence] in Urine by Test stripOrdered By: Halle Mac on 90-24-6115Icumqtw Ql (U)NegativeNormalNegativeThe University Of Toledo Medical CenterComment on above:Order Comment: Name Collection Type:: Clean- Voided MidstreamPerformed By: #### URMACRERAT, ADDONUAPLUS, PROCRERAT #### [place] [id number] USALeukocyte esterase [Presence] in Urine by Test strip Ordered By: Halle Mac on 93-15-7131Ndgozmvhs esterase Test strip Ql (U)3+ NormalNegTrumbull Regional Medical CenterComment on above:Order Comment: Name Collection Type:: Clean-Voided MidstreamPerformed By: #### URMACRERAT, ADDONUAPLUS, PROCRERAT #### [place] [address] USALeukocytes [#/area] in Urine sediment by Automated count Ordered By: Halle Mac on 91-06-3604IHM Auto (Urine sed) [#/Area]1-2 [HPF]0-4 The [facility] Medical CenterLeukocytes [#/volume] corrected for nucleated erythrocytes in Blood by Automated counOrdered By: Halle Mac on 15-60-5288BFP corrected for nucl RBC Auto (Bld) [#/Vol]9.7 10*3/uL3.8-11.6FBellevue HospitalH [Entitic mass] by Automated countOrdered By: Halle Mac on 20-93-3002YPC (RBC) [Entitic mass]29.5 lbGhcwpv27.7-34.3FPike Community HospitalComment on above:Performed By: #### URIC, FE and TIBC, COGP89KAM, GEENA, MG, RENAL, CBCNO, RDRJ12EV, PTH #### [place] [id number] [facility] Auto (RBC) [Mass/Vol]Ordered By: Halle Mac on 62-21-6273ESZP (RBC) [Mass/Vol]32.7 g/dL32.0-35.0The [facility] CenterMCV [Entitic volume] by Automated countOrdered By: Halle Mac on 74-15-0746LEP (RBC) [Entitic vol]90.3 lRKsjttc25-892FuvlmlmsrThe University Of Toledo Medical CenterComment on above:Performed By: #### URIC, FE and TIBC, VHHX56ORG, GEENA, MG, RENAL, CBCNO, UPBQ52QX, PTH #### [facility] [address] [place] [id number] USAMagnesium [Mass/volume] in Serum or PlasmaOrdered By: Halle Mac on 70-19-3802Fxydngxtn [Mass/Vol]2.1 mg/dLNormal1.9-2.7FPike Community HospitalComment on above:Performed By: #### URIC, FE and TIBC, JDVB35TQW, GEENA, MG, RENAL, CBCNO, XAJQ84VY, PTH #### [facility] [address] [place] [id number] USAMicroAlb Creat Ratio,Uon 93-03-7091Qyzujrroqv, Urine (Random)270.00 mg/dLNoalThe [facility] Physician GroupComment on above:Result Comment: No reference range establishedPerformed By: #### URMACRERAT ADDONUAPLUS, PROCRERAT #### [facility] [address] [place] [id number] USAMicroalbumin/Creatinine Ratio8.1 mg/gNormal0.0-30.0The [facility] Physician GroupComment on above:Result Comment: 30-300 mg/g indicates an increased risk for diabetic nephropathy. Greater than 300 mg/g is consistent with clinical nephropathy. (Am. J. Kidney Disease 1995, 25:107)Performed By: #### URMACRERAT, ADDONUAPLUS, PROCRERAT #### [facility] [address] [place] [id number] USAMicroalbumin [Mass/volume] in UrineOrdered By: Halle Mac on 52-69-0725Mkkguwk DL <= 20 mg/L (U) [Mass/Vol]2.2 mg/dLHigh0.0-1.8 The [facility] CenterComment on above:Performed By: #### URMACRERAT, ADDONUAPLUS, PROCRERAT #### [facility] [address] [place] [address] USAMucus [Presence] in Urine by AutomatedOrdered By: Halle Mac on 76-04-0850Ywmib Auto Ql (U)Rare [LPF]The [facility] Medical CenterNitrite Test strip Ql (U)Ordered By: Halle Mac on 01-83-0040Fjaayai Ql (U)NegativeNegativeThe University Of Toledo Medical CenterNo Panel InformationOrdered By: Halle Mac on 98-50-9490Szykakdyv GFR (CKD-EPI)45.770 mL/MinThe University Of Toledo Medical CenterPharmacy Creatinine Clearance (ChemN/AFPike Community HospitalParathyrin.intact [Mass/volume] in Serum or PlasmaOrdered By: Halle Mac on 73-72-7759Abvecvmaqx.intact [Mass/Vol]25.6 pg/pG24-02RvvmqruzrThe University Of Toledo Medical CenterParathyroid Hormone Intacton 34-24-6607Mxthefttbnt Hormone Pdrlyb50.6 pg/pRQvckvq97-74Hzw [facility] Physician GroupComment on above:Result Comment: PERFORMED BY: [facility] [address] [facility] [place] [address] PATHOLOGIST SOCIAL SCIENCES DEPARTMENT CHAIR KRISHAN PAEZ M.D.Performed By: #### URIC, FE and TIBC, SMJS33GVG, GEENA, MG, RENAL, CBCNO, VEMG80OJ, PTH #### [facility] [address] [place] [address] USAPhosphate [Mass/volume] in Serum or PlasmaOrdered By: Halle Mac on 37-44-4844Qwmkrxbpv [Mass/Vol]3.5 mg/dLNormal2.5-4.5FPike Community HospitalComment on above:Performed By: #### URIC, FE and TIBC, BOOJ28YRR, GEENA, MG, RENAL, CBCNO, [id number], PTH #### [place] [address] USAPlatelet mean volume [Entitic volume] in Blood by Automated countOrdered By: Halle Mac on 43-26-7884Yjhpjycz mean volume (Bld) [Entitic vol]9.4 fLNormal6.3-10.7FPike Community HospitalComment on above:Result Comment: PERFORMED BY: [place] [address] PATHOLOGIST SOCIAL SCIENCES DEPARTMENT CHAIR KRISHAN PAEZ M.D.Performed By: #### URIC, FE and TIBC, AIUF22KDM, GEENA, MG, RENAL, CBCNO, UEWC63AT, PTH #### [place] [address] USAPlatelets [#/volume] in Blood by Automated countOrdered By: Halle Mac on 46-06-1263Pdtuejdnw (Bld) [#/Vol]258 10*3/mYQwckib139-787 The [facility] Medical CenterComment on above:Performed By: #### URIC, FE and TIBC, RBAY34XGU, GEENA, MG, RENAL, CBCNO, ATAO03PM, PTH #### [place] [address] USAPotassium [Moles/volume] in Serum or PlasmaOrdered By: Halle Mac on 15-93-7187Fscvxprsv [Moles/Vol]4.6 mmol/LNormal3.5-5.1FPike Community HospitalComment on above:Performed By: #### URIC, FE and TIBC, GWTK85THV, GEENA, MG, RENAL, CBCNO, MEDL02UG, PTH #### [place] [address] USAProtein Creat Ratio Ur Randomon 45-28-8397Hhysj Protein/Creatinine Ratio85 mg/g{Cre}Normal0-200The [facility] Comment on above:Result Comment: PERFORMED BY: [address] [place] [address] PATHOLOGIST SOCIAL SCIENCES DEPARTMENT CHAIR KRISHAN PAEZ M.D.Performed By: #### RAMOS ALEXIS PROCREWESTON #### [place] [address] USAProtein Test strip (U) [Mass/Vol]Ordered By: Halle Mac on 74-15-2237Fwwqlil (U) [Mass/Vol]Trace mg/dLHighNegativeThe University Of Toledo Medical CenterProtein [Mass/volume] in UrineOrdered By: Halle Mac on 99-37-0456Mdaqvco (U) [Mass/Vol]23 mg/dLHigh0-9[facility] Comment on above:Performed By: #### RAMOS ALEXIS PROCRERAT #### [place] [address] USARenal Function Panelon 91-66-2615Lguqxkv [Mass/Vol]4.1 g/dLNormal3.5-5.7The [facility] Physician GroupComment on above:Performed By: #### URIC, FE and TIBC, WBTZ84GVY, GEENA, MG, RENAL, CBCNO, DZAN35IK, PTH #### [place] [address] USAGFR/1.73 sq M.predicted MDRD (S/P/Bld) [Vol rate/Area] 45.770 mL/min/{1.73_m2}NormalThe [facility] Physician GroupComment on above: Performed By: #### URIC, FE and TIBC, MXVO05RIR, GEENA, MG, RENAL, CBCNO, TCAK00KO, PTH #### [place] [address] USASerum or plasma anion gap determinationOrdered By: Hlale Mac on 32-56-6191Hfizh gap [Moles/Vol]9.3 mmol/LNormal6.0-15.0The [facility] Medical CenterComment on above:Performed By: #### URIC, FE and TIBC, JPLR34CAJ, GEENA, MG, RENAL, CBCNO, CXWQ42QK, PTH #### [facility] [address] [place] [address] USASerum or plasma iron binding capacity measurement (mass/volume)Ordered By: Halle Mac on 40-00-2921Rpku binding capacity [Mass/Vol]416 ug/cJ805-034EtbfkhmriMarymount Hospitalerum or plasma iron saturation measurement (mass fraction)Ordered By: Halle Mac on 63-79-6054Ihmo saturation [Mass fraction]15.4 %Ezm75-23SnaablksoMarymount Hospitalodium [Moles/volume] in Serum or PlasmaOrdered By: Halle Mac on 05-05-8668Lwehad [Moles/Vol]144 mmol/AJtbggd027-309RtgamyyryThe University Of Toledo Medical CenterComment on above:Performed By: #### URIC, FE and TIBC, ZCUM41WWM, GEENA, MG, RENAL, CBCNO, UUUR11QX, PTH #### [facility] [address] [place] [address] USASpecific gravity Test strip (U) [Rel density]Ordered By: Halle Mac on 20-81-6684Thyqgdzy gravity (U) [Rel density]1.669Yalq1.001-1.030 The [facility] CenterTelephoneon [id number] Sherly Humphreys 1970 F Date Provider Department Center 11/18/2024 NEO TABARES MATTHEW Hamilton Family History Problem Relation Age of Onset Cancer Mother Heart attack Father Family Status - Relation Status Age at Mother Father DeceasedNormalUniversity [facility] Galion HospitalTransferrin [Mass/volume] in Serum or PlasmaOrdered By: Halle Mac on 11-18-2024 Transferrin [Mass/Vol]297 mg/jHUxmlkv156-992EbdblunweThe [facility] Center Comment on above:Performed By: #### URIC, FE and TIBC, DQMJ34QQE, GEENA, MG, RENAL, CBCNO, DIPZ96YK, PTH #### [facility] [address] [place] [address] USAUrate [Mass/volume] in Serum or PlasmaOrdered By: Halle Mac on 42-07-1746Vwybs [Mass/Vol]5.1 mg/dLNormal2.3-6.6FPike Community HospitalComment on above:Performed By: #### URIC, FE and TIBC, EIMG60LYZ, GEENA, MG, RENAL, CBCNO, POHX22DT, PTH #### [facility] [address] [place] [address] USAUrea nitrogen [Mass/volume] in Serum or PlasmaOrdered By: Halle Mac on 41-14-8162Nqli nitrogen [Mass/Vol]25 mg/dLNormal7-25The [facility] CenterComment on above:Performed By: #### URIC, FE and TIBC, VCQB47DHX, GEENA, MG, RENAL, CBCNO, PMPE50DG, PTH #### [facility] [address] [place] [address] USAUrine microalbumin/creatinine mass ratioOrdered By: Halle Mac on 19-17-2297Vzxdgpd/Creatinine DL <= 20 mg/L (U) [Mass ratio]8.1 mg/g 0.0-30.0The [facility] Medical CenterComment on above:30-300 mg/g indicates an increased risk for diabetic nephropathy. Greater than 300 mg/g is consistent with clinical nephropathy. (Am. J. Kidney Disease 1995, 25:107)Urine protein/creatinine ratioOrdered By: Halle Mac on 67-80-0076Tamxygc/Creatinine (U) [Ratio]85 mg/g{Cre}0-200The [facility] Medical CenterUrobilinogen Test strip (U) [Mass/Vol]Ordered By: Halle Mac on 82-33-5475Suvmeauzvooc (U) [Mass/Vol]2 mg/dLHighNormKettering Health TroyVit. B12/Folate Profileon 44-43-4994Fbhnzp4.8 ng/mLNormal>5.9[facility] Comment on above:Result Comment: Folate reference range: >5.9 ng/ml The WHO technical consultation on folate and vitamin b12 deficiencies has determined that folate concentrations less than 4 ng/ml are considered deficient.Performed By: #### MYLES ALEXISUAPLUS, PROCRERAT #### [facility] [address] [place] [id number] USAVitamin B12 ser/plasOrdered By: Halle Mac on 11-18-2024 Cobalamin (Vitamin B12) [Mass/Vol]934 pg/wISmik448-216JgvectqgaThe University Of Toledo Medical CenterComment on above:Performed By: #### RAMSO ALEXIS, PROCRERAT #### [facility] [address] [place] [id number] USAVitamin D 25 Hydroxy Totalon 94-57-0863Wooagot D 25 Hydroxy Total23.9 ng/jPGbx81-284Ygp [facility] Physician GroupComment on above: Result Comment: VITAMIN D STATUS 25(OH)VITAMIN D RANGE (ng/mL) Deficient <20 Insufficient 20 to <30 Sufficient 30 to 100 Reference: Nicole Almonte, Ed LI, et al. Evaluation,treatment, and prevention of vitamin D deficiency; an Endocrine Society clinical practice guideline. JCEM. 2010; 96(7):1911-30. PERFORMED BY: [place] [address] PATHOLOGIST SOCIAL SCIENCES DEPARTMENT CHAIR KRISHAN PAEZ M.D.Performed By: #### RAMOS ALEXIS, PROCRERAT #### [facility] [address] [place] [address] USAVitamin D+Metabolites [Mass/volume] in Serum or Plasma Ordered By: Halle Mac on 29-27-8658Edrxtqt D+Metabolites [Mass/Vol]23.9 ng/mL Btw23-674DynooebgpThe University Of Toledo Medical CenterComment on above:VITAMIN D STATUS 25(OH)VITAMIN D RANGE (ng/mL) Deficient <20 Insufficient 20 to <62Kxbeztttwe44 to 100Reference: Nicole Almonte, Ed LI, et al. Evaluation,treatment, and prevention of vitamin D deficiency; an Endocrine Society clinical practice guideline. JCEM. 2010; 96(7):1911-.pH of Urine by Test stripOrdered By: Halle Mac on 20-99-6826hM (U)5.0 [pH]Normal5.0-9.0 The [facility] Medical CenterComment on above:Order Comment: Name Collection Type:: Clean-Voided MidstreamPerformed By: #### RAMOS ALEXIS, PROCRERAT #### [facility] [address] [place] [id number] USANM ROZ PERF SPECT REST STRon 08-10-4145[place]onoco, [place] [address] Nuclear Medicine Report Signed Patient: SHERLY HUMPHREYS MR#: [id number] : 1970 Acct:[id number] Age/Sex: 53 / F ADM Date: 11/13/24 Loc: [place] Attending Dr: Tk Godoy M.D. Ordering Physician: Tk Godoy M.D. Date of Service: 11/13/24 Procedure(s): NM roz perf SPECT rest str Accession Number(s): [id number] cc: Janene Lew CONFIGURATION MANAGEMENT ADVISOR; Tk Godoy M.D. Patient Name: SHERLY HUMPHREYS MR#: [id number] : 1970 Exam Date: 11/13/2024 Ordering Doctor: [...] the study was pending per attending physician [facility] . For more details please see [...] Signed By: 11/17/24 1002 DD/ 1001 TD/TT: Grocery Stock Clerk:VLADHRadiologjasmyn, Radiologist, - 11/17/2024 [place] [address] Nuclear Medicine Report Signed Patient: SHERLY HUMPHREYS MR#: [id number] : 1970 Acct:[id number] Age/Sex: 53 / F ADM Date: 11/13/24 Loc: [place] Attending Dr: Tk Godoy M.D. Ordering Physician: kT Godoy M.D. Date of Service: 11/13/24 Procedure(s): NM roz perf SPECT rest str Accession Number(s): [id number] cc: Janene Lew CONFIGURATION MANAGEMENT ADVISOR; Tk Godoy M.D. Patient Name: SHERLY HUMPHREYS MR#: [id number] : 1970 Exam Date: 11/13/2024 Ordering Doctor: [...] the study was pending per attending physician [facility] . For more details please see [...] Signed By: 11/17/24 1002 DD/ 1001 TD/TT: Grocery Stock Clerk: [facility] HospitalRadiology Study observation (narrative)[facility] ROZ PERF SPECT REST STROrdered By: Radiologist Radiology on 93-86-2740AFDQCooper County Memorial Hospital Work Phone: Orders Onlyon 73-21-5840Hgvidr [id number] Sherly Humphreys 1970 Date Provider Department Center 11/17/2024 [id number], HISTORICAL CARD Alfredo Hamilton Family History Problem Relation Age of Onset Cancer Mother Heart attack Father Family Status - Relation Status Age at Mother Father DeceasedNormalUniversity of Foundation Surgical Hospital Of El PasoHbA1c (Bld) [Mass fraction]on 97-12-8934Upzutlmtzarurq and review of laboratory resultsNormalPerry County Memorial Hospital HealthcareLaboratory - Hematology and Cell countson 11-03-2024 HbA1c (Bld) [Mass fraction]5.2 %[facility] HospitalOffice Visiton 59-19-7177Wzashj- up [id number] Sherly Humphreys 1970 Date Provider Department Center 10/16/2024 271-TK GODOY CARD Alfredo Hamilton Family History Problem Relation Age of Onset Cancer Mother Heart attack Father Family Status - Relation Status Age at Mother Father Level of Service:[address]37 [place] OFFICE/OUTPATIENT ESTABLISHED MOD [facility] 30 [facility] HospitalALL CBC WITH AUTO DIFFon 32-16-5059RCXGFGWJB ABSOLUTE AUTO0.1NOMS HealthcareBasophils/100 WBC (Bld)1.1 %0.2 - 2.0 %NOMS HealthcareEosinophils/100 WBC (Bld)3.1 %0.9 - 7.0 %NOMS HealthcareErythrocyte distribution width (RBC) [Ratio]12.9 %11.0 - 15.0 %NOMS HealthcareHematocrit (Bld) [Volume fraction]33.2 %Low36.0 - 48.0 %NOMS HealthcareHemoglobin (Bld) [Mass/Vol]11.1 g/dLLow12.0 - 16.0 g/dLNOME HealthcareIMMATURE GRANULOCYTES ABS AUTO0.01NOMS HealthcareImmature granulocytes/100 WBC (Bld)0.2 %0.0 - 0.5 %NOMS HealthcareInterpretation and review of laboratory resultsAbnormSt. Mary Medical Center LYMPHOCYTES ABSOLUTE AUTO1.7NOMS HealthcareLymphocytes/100 WBC (Bld)38.2 %20.5 - 60.0 %NOMSt. Luke'S HospitalMCH (RBC) [Entitic mass]30.1 pg26.7 - 34.0 pgNONorth Kansas City HospitalMCHC (RBC) [Mass/Vol]33.4 g/dL29.9 - 35.2 g/dLNONorth Kansas City HospitalMCV (RBC) [Entitic vol]90 fL81.0 - 99.0 fLNOME HealthcareMONOCYTES ABSOLUTE AUTO0.3NOMS HealthcareMonocytes/100 WBC (Bld)7 %1.7 - 12.0 %NOMS HealthcareNEUTROPHILS ABSOLUTE AUTO2.2NOMS HealthcareNeutrophils/100 WBC (Bld)50.4 %43.0 - 75.0 %NOMS HealthcarePlatelet mean volume (Bld) [Entitic vol]11.2 fL9.5 - 13.5 fLNOMS HealthcareTBH EO #0.1NOMS HealthcareTBH HTC341JBXP HealthcareTBH RBC3.69LowNOMS HealthcareTBH WBC4.5NOMS HealthcareCLINISYNCNOMS HealthcareECG 12-LEADon 06-71-0253SchWoron[place], [place] [address] Electrocardiograph Report Signed Patient: SHERLY HUMPHREYS MR#: [id number] : 1970 Acct:[id number] Age/Sex: 53 / F ADM Date: 10/07/24 Loc: [facility] Attending Dr: Marcella Conway M.D. Ordering Physician: Marcella Conway M.D. Date of Service: 10/07/24 Procedure(s): ECG 12 lead Accession Number(s): [id number] cc: 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 Measurements Intervals [place] Rate: 51 P: 30 [place]: 182 QRS: -16 QRSD: 105 T: 0 [...] Dictated By: LITO EDEN Signed By: 10/07/24 6750 DD/ 1001 TD/TT: Grocery Stock Clerk:TBHRadiology, Radiologist, - 10/07/2024 The [place] [id number] Electrocardiograph Report Signed Patient: SHERLY HUMPHREYS MR#: [id number] : 1970 Acct:[id number] Age/Sex: 53 / F ADM Date: 10/07/24 Loc: PST Attending Dr: Marcella Conway M.D. Ordering Physician: Marcella Conway M.D. 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 Measurements Intervals [place] Rate: 51 P: 30 [place]: 182 QRS: -16 QRSD: 105 T: 0 [...] Dictated By: LITO EDEN Signed By: 10/07/24 4217 DD/ 1001 TD/TT: Grocery Stock Clerk: NOMMynor HealthcareRadiology Study observation (narrative)NOMS HealthcareECG 12-LEAD Ordered By: Radiologist Radiology on 24-92-4958DTAL Healthcare Work Phone: xr CHEST 2Von 91-08-6584DhkW[place]on[place], [place] [address] XRay Report Signed Patient: SHERLY HUMPHREYS MR#: [id number] : 1970 Acct:[id number] Age/Sex: 53 / F ADM Date: 10/07/24 Loc: PST Attending Dr: Marcella Conway M.D. Ordering Physician: Marcella Conway M.D. Date of Service: 10/07/24 Procedure(s): XR chest 2V Accession Number(s): [id number] cc: Janene Lew NP; Marcella Conway M.D. The [address] [id number] Patient Name: SHRELY HUMPHREYS MRN: TBH:[id number] date: 1970 Sex: F [facility] Current Patient Location: [facility] Accession/Order Number: [id number] Exam Date: 10/07/2024 12:58 Report Date: 10/07/2024 12:59 At the request of: MARCELLA CONWAY MD Procedure: XR chest 2V Chest 2 views CLINICAL HISTORY: Pre Op COMPARISON: Chest 07/05/2024 FINDINGS: Heart normal in size. Lungs are clear. No free air. XR/XR chest 2V IMPRESSION: NO ACUTE CARDIOPULMONARY ABNORMALITY. Impression dictated by: Azalea Flores Jr.OGerardo 10/07/2024 12:59 PM Dictation Location: [place] [address] Electronically authenticated by: [id number] Y Date: 10/07/2024 12:59 Dictated By: Kip Mon M.D. Signed By: 10/07/24 1302 DD/ 1259 TD/TT: Grocery Stock Clerk:VLADHRadiologjasmyn, Radiologist, - 10/07/2024 [place] [address] XRay Report Signed Patient: SHERLY HUMPHREYS MR#: [id number] : 1970 Acct:[id number] Age/Sex: 53 / F ADM Date: 10/07/24 Loc: PST Attending Dr: Marcella Conway M.D. Ordering Physician: Marcella Conway M.D. Date of Service: 10/07/24 Procedure(s): XR chest 2V Accession Number(s): [id number] cc: Janene Lew NP; Marcella Conway M.D. The [place] [address] Patient Name: SHERLY HUMPHREYS MRN: [facility]:[id number] date: 1970 Sex: F Assigned Patient Location: [facility] Current Patient Location: [facility] Accession/Order Number: [id number] Exam Date: 10/07/2024 12:58 Report Date: 10/07/2024 12:59 At the request of: MARCELLA CONWAY MD Procedure: XR chest 2V Chest 2 views CLINICAL HISTORY: Pre Op COMPARISON: Chest 07/05/2024 FINDINGS: Heart normal in size. Lungs are clear. No free air. XR/XR chest 2V IMPRESSION: NO ACUTE CARDIOPULMONARY ABNORMALITY. Impression dictated by: Kip Mon Jr., D.O. 10/07/2024 12:59 PM Dictation Location: [place] [address] Electronically authenticated by: [id number] Y Date: 10/07/2024 12:59 Dictated By: Kip Mon M.D. Signed By: 10/07/24 1302 DD/ 1259 TD/TT: Grocery Stock Clerk: [facility]ITALMynor [facility] HospitalRadiology Study observation (narrative)[facility] HospitalXR CHEST 2V Ordered By: Radiologist Radiology on 97-50-5414NMTSCooper County Memorial Hospital Work Phone: aLL CBC WITH AUTO DIFFon 49-21-3980ZDLLAKUGP ABSOLUTE AUTO0.1NOMS HealthcareBasophils/100 WBC (Bld)0.8 %0.2 - 2.0 %[facility] Eosinophils/100 WBC (Bld)3.2 %0.9 - 7.0 %[facility] HospitalErythrocyte distribution width (RBC) [Ratio]13 %11.0 - 15.0 %[facility] HealthcareHematocrit (Bld) [Volume fraction]33.6 %Low36.0 - 48.0 %[facility] HospitalHemoglobin (Bld) [Mass/Vol]10.9 g/dLLow12.0 - 16.0 g/dLCooper County Memorial HospitalIMMATURE GRANULOCYTES ABS AUTO0.01NOME HealthcareImmature granulocytes/100 WBC (Bld)0.2 %0.0 - 0.5 %[facility] Interpretation and review of laboratory resultsAbnormalNOMS Healthcare LYMPHOCYTES ABSOLUTE AUTO2.8NOMS HealthcareLymphocytes/100 WBC (Bld)46.4 %20.5 - 60.0 %[facility] HospitalH (RBC) [Entitic mass]30.2 pg26.7 - 34.0 pgNOOzarks Community HospitalHC (RBC) [Mass/Vol]32.4 g/dL29.9 - 35.2 g/dLNOOzarks Community HospitalV (RBC) [Entitic vol]93.1 fL81.0 - 99.0 fLNOME HealthcareMONOCYTES ABSOLUTE AUTO0.4NOME HealthcareMonocytes/100 WBC (Bld)6.6 %1.7 - 12.0 %[facility] HealthcareNEUTROPHILS ABSOLUTE AUTO2.5N[facility]S HealthcareNeutrophils/100 WBC (Bld)42.8 %Low43.0 - 75.0 % [facility] HealthcarePlatelet mean volume (Bld) [Entitic vol]10.8 fL9.5 - 13.5 fLNONorth Kansas City HospitalTBH EO #0.2NOMS HealthcareTBH KAY118JAAJ Memorial HospitalTB RBC3.61LowNONorth Kansas City HospitalTB WBC5.9NOME HealthcareCLINISYNCNOMS HealthcareXR Hip - right 3 Viewson 73-34-7599[address] [address] XRay Report Signed Patient: SHERLY HUMPHREYS MR#: [id number] : 1970 Acct:[id number] Age/Sex: 53 / F ADM Date: 08/28/24 Loc: RAD Attending Dr: Elizabeth Meneses CONFIGURATION MANAGEMENT ADVISOR Ordering Physician: Elizabeth Meneses NP Date of Service: 08/28/24 Procedure(s): XR hip RT min 2V Accession Number(s): [id number] cc: Janene Lew NP; Elizabeth Meneses NP [address] [address] Patient Name: SHERLY HUMPHREYS MRN: [id number] date: 1970 Sex: F Assigned Patient Location: RAD Current Patient Location: RAD Accession/Order Number: [id number] Exam Date: 08/28/2024 10:29 Report Date: 08/28/2024 [...] Lubin M.D. 08/28/2024 10:30 AM Dictation Location: [place] [address] Electronically authenticated by: [id number] Y Date: 08/28/2024 10:30 Dictated By: Franco Lubin M.D. Signed By: 08/28/24 1032 DD/ 1030 TD/TT: Grocery Stock Clerk:TBHRadiology, Radiologist, - 08/28/[address] [address] XRay Report Signed Patient: SHERLY HUMPHREYS MR#: [id number] : 1970 Acct:[id number] Age/Sex: 53 / F ADM Date: 08/28/24 Loc: RAD Attending Dr: Elizabeth Meneses NP Ordering Physician: Elizabeth Meneses NP Date of Service: 08/28/24 Procedure(s): XR hip RT min 2V Accession Number(s): [id number] cc: Janene Lew NP; Elizabeth Meneses NP The [address] [address] Patient Name: SEHRLY HUMPHREYS MRN: [id number] date: 1970 Sex: F Assigned Patient Location: RAD Current Patient Location: RAD Accession/Order Number: [id number] Exam Date: 08/28/2024 10:29 Report Date: 08/28/2024 [...] Lubin M.D. 08/28/2024 10:30 AM Dictation Location: [place] [address] Electronically authenticated by: [id number] Y Date: 08/28/2024 10:30 Dictated By: Franco Lubin M.D. Signed By: 08/28/24 1032 DD/ 1030 TD/TT: Grocery Stock Clerk: VARUN HealthcareRadiology Study observation (narrative)NOM[facility] HealthcareXR Hip - right 3 ViewsOrdered By: Radiologist Radiology on 58-60-4540SJEBCooper County Memorial Hospital Work Phone: HbA1c (Bld) [Mass fraction]on 83-60-9813Ihgshjxcpequdp and review of laboratory resultsNormalUNC Health NashLaboratory - Hematology and Cell countson 25-15-0777GdM8m (Bld) [Mass fraction]5.5 %NOMS HealthcareXR LUMBAR SPINE MIN 4Von 02-82-7652[place] [address] XRay Report Signed Patient: SHERLY HUMPHREYS MR#: [id number] : 1970 Acct:[id number] Age/Sex: 53 / F ADM Date: 04/18/24 Loc: EC Attending Dr: Leatha Loya M.D. Ordering Physician: Leatha Loya M.D. Date of Service: 04/18/24 Procedure(s): XR lumbar spine min 4V Accession Number(s): [id number] cc: Janene Lew CONFIGURATION MANAGEMENT ADVISOR; Leatha Loya M.D. The [place] [id number] Patient Name: SHERLY HUMPHREYS MRN: [id number] date: 1970 Sex: F Assigned Patient Location: Current Patient Location: Accession/Order Number: [id number] Exam Date: 04/18/2024 08:38 Report Date: 04/21/2024 06:29 At the request of: LEATHA LOYA Procedure: XR lumbar spine min 4V [...] during flexion and extension. Electronically authenticated by: KATHY LOBATO Date: 04/21/2024 06:29 Dictated By: Kathy Lobato M.D. Signed By: 04/21/2432 DD/ TD/TT: Grocery Stock Clerk:TBHRadiology, Radiologist, MD - 04/21/2024 [place] [address] XRay Report Signed Patient: SHERLY HUMPHREYS MR#: [id number] : 1970 Acct:[id number] Age/Sex: 53 / F ADM Date: 04/18/24 Loc: EC Attending Dr: Leatha Loya M.D. Ordering Physician: Leatha Loya M.D. Date of Service: 04/18/24 Procedure(s): XR lumbar spine min 4V Accession Number(s): [id number] cc: Janene Lew CONFIGURATION MANAGEMENT ADVISOR; Leatha Loya M.D. [place] [address] Patient Name: SHERLY HUMPHREYS MRN: [id number] date: 1970 Sex: F Assigned Patient Location: Current Patient Location: Accession/Order Number: [id number] Exam Date: 04/18/2024 08:38 Report Date: 04/21/2024 06:29 At the request of: LEATHA LOYA Procedure: XR lumbar spine min 4V [...] during flexion and extension. Electronically authenticated by: KATHY LOBATO Date: 04/21/2024 06:29 Dictated By: Kathy Lobato M.D. Signed By: 04/21/24631 DD/ 8 TD/TT: Grocery Stock Clerk: VARUN HealthcareRadiology Study observation (narrative)NOM HealthcareXR LUMBAR SPINE MIN 4VOrdered By: Radiologist Radiology on 04-96-0657BDJE Healthcare Work Phone: Ferritinon 26-36-7547Skvoanok [Mass/Vol]135.5 ng/mL Wvhxtc10.0-306.8The [facility] Physician GroupComment on above:Performed By: #### JOSHUAMACREWESTON, ADDONUAGERMÁN, PROCRERAT #### [place] [address] USAHemogram CBC Without Diffon 82-62-0103Aucfgnzkcwn distribution width (RBC) [Ratio]14.6 %Sgartr81.9-15.3The [facility] Physician GroupComment on above:Performed By: #### URMACRERAT, ADDONUAPLUS, PROCRERAT #### [place] [address] USAHematocrit (Bld) [Volume fraction]34.9 %Pytosw07.0-46.4The [facility] Physician GroupComment on above:Performed By: #### URMACRERAT, ADDONUAPLUS, PROCRERAT #### [place] [address] USAHemoglobin (Bld) [Mass/Vol]11.4 g/dLLow11.8-15.4The [facility] Physician GroupComment on above:Performed By: #### URMACRERAT, ADDONUAPLUS, PROCRERAT #### [place] [address] USAH (RBC) [Entitic mass]29.7 mwItwpzq38.7-34.3The [facility] Physician GroupComment on above:Performed By: #### URMACRERAT, ADDONUAPLUS, PROCRERAT #### [place] [address] USAV (RBC) [Entitic vol]91.3 uBJwmvhm79-725Bxc [facility] Physician GroupComment on above:Performed By: #### URMACRERAT, ADDONUAPLUS, PROCRERAT #### [place] [address] USAMean Corpuscular HGB Conc32.6 g/mNXdfdhz95.0-35.0The [facility] Physician GroupComment on above:Performed By: #### URMACRERAT, ADDONUAPLUS, PROCRERAT #### [place] [address] USAPlatelet mean volume (Bld) [Entitic vol]8.7 fLNormal 6.3-10.7The [facility] Physician GroupComment on above:Result Comment: PERFORMED BY: [address] [address] PATHOLOGIST SOCIAL SCIENCES DEPARTMENT CHAIR SHANIQUE CALDERON M.D.Performed By: #### URMACRERAT, ADDONUAPLUS, PROCRERAT #### [place] [address] USAPlatelets (Bld) [#/Vol]328 10*3/wXXdfgwb629-770Fce [facility] Physician GroupComment on above:Performed By: #### URMACRERAT, ADDONUAPLUS, PROCRERAT #### [place] [address] USARBC (Bld) [#/Vol]3.83 10*6/uLNormal3.60-5.00The [facility] Physician GroupComment on above:Performed By: #### URMACRERAT, ADDONUAPLUS, PROCRERAT #### [place] [address] USAWBC (Bld) [#/Vol]5.1 10*3/uLNormal3.8-11.6The [facility] Physician GroupComment on above:Performed By: #### URLIDIARERAT, ADDONUAPLUS, PROCRERAT #### [facility] [address] [place] [address] USAIron and TIBC Profileon 03-11-2024% Iron Cfnyfkapmx67.1 % Ycnuva35-22Wpa [facility] Physician GroupComment on above:Performed By: #### URMACRERAT, ADDONUAPLUS, PROCRERAT #### [place] [address] USAIron [Mass/Vol]118 ug/dXQloett35-677Ctg [facility] Physician GroupComment on above:Performed By: #### URMACRERAT, ADDONUAPLUS, PROCRERAT #### [place] [address] USATotal Iron Binding Auchnnni201 ug/fFTqxfmr868-739Vis [facility] Physician GroupComment on above:Performed By: #### URMACRERAT, ADDONUAPLUS, PROCRERAT #### [facility] [address] [place] [address] USATransferrin [Mass/Vol]280 mg/rFEouaqz051-751Gmj [facility] Physician GroupComment on above:Performed By: #### URMACRERAT, ADDONUAPLUS, PROCRERAT #### [facility] [address] [place] [address] USAMagnesiumon 24-32-0700Ntcmkifwn [Mass/Vol]1.9 mg/dLNormal 1.9-2.7The [facility] Physician GroupComment on above:Performed By: #### URMACRERAT, ADDONUAPLUS, PROCRERAT #### [place] [address] USAMicroAlb Creat Ratio,Uon 22-76-2237Ibcasxi DL <= 20 mg/L (U) [Mass/Vol]mg/dLNormal0.0-1.8The [facility] Physician GroupComment on above: Performed By: #### URMACRERAT, ADDONUAPLUS, PROCRERAT #### [facility] [address] [place] [address] USACreatinine, Urine (Random)57.00 mg/dLNormalThe [facility] Physician GroupComment on above:Result Comment: No reference range established Performed By: #### URMACRERAT, ADDONUAPLUS, PROCRERAT #### [facility] [address] [place] [address] USAMicroalbumin/Creatinine RatioNot performedNormal0.0-30.0 The [facility] Physician GroupComment on above:Performed By: #### URMACRERAT, ADDONUAPLUS, PROCRERAT #### [facility] [address] [place] [address] USAParathyroid Hormone Intacton 79-54-1271Lqsbgyfizuz Hormone Tccyfq32.6 pg/dJXigycm92-47Bai [facility] Physician GroupComment on above:Result Comment: PERFORMED BY: [place] [address] PATHOLOGIST SOCIAL SCIENCES DEPARTMENT CHAIR SHANIQUE CALDERON M.D.Performed By: #### URMACRERAT, ADDONUAPLUS, PROCRERAT #### [place] [address] USAProtein Creat Ratio Ur Randomon 00-27-0992Ojwsayb (U) [Mass/Vol]5 mg/dLNormal0-9The [facility] Physician GroupComment on above: Performed By: #### URMACRERAT, ADDONUAPLUS, PROCRERAT #### [place] [address] USAUrine Protein/Creatinine Ratio88 mg/g{Cre}Normal0-200The [facility] Physician GroupComment on above:Result Comment: PERFORMED BY: [place] [address] PATHOLOGIST SOCIAL SCIENCES DEPARTMENT CHAIR SHANIQUE CALDERON M.D.Performed By: #### KWAMERERAT, ADDONUAPLUS, PROCRERAT #### [place] [address] USARenal Function Panelon 02-54-0539Sxgwaaq [Mass/Vol]3.9 g/dLNormal3.5-5.7The [facility] Physician GroupComment on above:Performed By: #### URMACRERAT, ADDONUAPLUS, PROCRERAT #### [place] [address] USAAnion gap [Moles/Vol]12.5 mmol/LNormal6.0-15.0The [facility] Physician GroupComment on above:Performed By: #### URMACRERAT, ADDONUAPLUS, PROCRERAT #### [place] [address] USACalcium [Mass/Vol]9.4 mg/dLNormal8.6-10.3The [facility] Physician GroupComment on above:Performed By: #### URMACRERAT, ADDONUAPLUS, PROCRERAT #### [place] [address] USAChloride [Moles/Vol]110 mmol/LUmdw54-645Bzb [facility] Physician GroupComment on above:Performed By: #### RAMOS ALEXIS PROCRERAT #### [facility] [address] [place] [address] USACO2 [Moles/Vol]25.0 mmol/WWsvksj15.0-31.0The [facility] Physician GroupComment on above:Performed By: #### RAMOS ALEXIS PROCRERAT #### [facility] [address] [place] [address] USACreatinine [Mass/Vol]1.50 mg/dLHigh0.60-1.20The [facility] Physician GroupComment on above:Performed By: #### RAMOS ALEXIS PROCRERAT #### [facility] [address] [place] [address] USAEstimated GFR41.412 mL/MinNormalThe [facility] Physician GroupComment on above:Performed By: #### RAMOS ALEXIS PROCRERAT #### [place] [address] USAGlucose [Mass/Vol]88 mg/dRRxinup35-890Roc [facility] Physician GroupComment on above:Result Comment: Random Glucose Reference Range is dependent on time and content of last meal. Glucose of more than 200 mg/dL in a nonstressed, ambulatory subject supports the diagnosis of Diabetes Mellitus. ADA recommended reference rangePerformed By: #### RAMOS ALEXIS PROCRERAT #### [facility] [address] [place] [address] USAPhosphate [Mass/Vol]2.7 mg/dLNormal2.5-4.5The [facility] Physician GroupComment on above:Performed By: #### RAMOS ALEXIS PROCRERAT #### [facility] [address] [place] [address] USAPotassium [Moles/Vol]4.5 mmol/LNormal3.5-5.1The [facility] Physician GroupComment on above:Performed By: #### URMACRERAT, ADDONUAPLUS, PROCRERAT #### [facility] [address] [place] [address] USASodium [Moles/Vol]143 mmol/MMiebti428-839Ovs [facility] Physician GroupComment on above:Performed By: #### URMACRERAT, ADDONUAPLUS, PROCRERAT #### [facility] [address] [place] [address] USAUrea nitrogen [Mass/Vol]18 mg/dLNormal7-25The [facility] Physician GroupComment on above:Performed By: #### URMACRERAT, ADDONUAPLUS, PROCRERAT #### [facility] [address] [place] [address] USAUric Acidon 30-46-3991Hhrfh [Mass/Vol]6.3 mg/dLNormal 2.3-6.6The [facility] Physician GroupComment on above:Performed By: #### URMACRERAT, ADDONUAPLUS, PROCRERAT #### [facility] [address] [place] [address] USAUrinalysison 57-10-9885Ukkbjziziy (U)ClearNormalClearThe [facility] Physician GroupComment on above:Order Comment: Name Collection Type:: Clean-Voided MidstreamPerformed By: #### URMACRERAT, ADDONUAPLUS, PROCRERAT #### [facility] [address] [place] [address] USABilirubin,UrineNegativeNormalNegativeThe [facility] Physician GroupComment on above:Order Comment: Name Collection Type:: Clean- Voided MidstreamPerformed By: #### URMACRERAT, ADDONUAPLUS, PROCRERAT #### [facility] [address] [place] [address] USAColor (U)Light-YellowNormalYellowThe [facility] Physician GroupComment on above:Order Comment: Name Collection Type:: Clean-Voided MidstreamPerformed By: #### URMACRERAT, ADDONUAPLUS, PROCRERAT #### [place] [address] USAGlucose Ql (U)NormalNormalNormalThe [facility] Physician GroupComment on above:Order Comment: Name Collection Type:: Clean-Voided MidstreamPerformed By: #### URMACRERAT, ADDONUAPLUS, PROCRERAT #### [place] [address] USAKetones Ql (U)NegativeNormalNegativeThe [facility] Physician GroupComment on above:Order Comment: Name Collection Type:: Clean- Voided MidstreamPerformed By: #### URMACRERAT, ADDONUAPLUS, PROCRERAT #### [place] [address] USALeukocyte esterase Test strip Ql (U)NegativeNormalNegative The [facility] Physician GroupComment on above:Order Comment: Name Collection Type:: Clean-Voided MidstreamPerformed By: #### URMACRERAT, ADDONUAPLUS, PROCRERAT #### [place] [address] USANitrite,UrineNegativeNormalNegativeThe [facility] Physician GroupComment on above:Order Comment: Name Collection Type:: Clean-Voided MidstreamPerformed By: #### URMACRERAT, ADDONUAPLUS, PROCRERAT #### [place] [address] USAOccult Blood,UrineNegativeNormalNegativeThe [facility] Physician GroupComment on above:Order Comment: Name Collection Type:: Clean- Voided MidstreamResult Comment: PERFORMED BY: [place] [address] PATHOLOGIST SOCIAL SCIENCES DEPARTMENT CHAIR SHANIQUE CALDERON M.D.Performed By: #### URMACRERAT, ADDONUAPLUS, PROCRERAT #### [place] [address] USApH (U)5.5 [pH]Normal5.0-9.0The [facility]ician Group Comment on above:Order Comment: Name Collection Type:: Clean-Voided Midstream Performed By: #### URMACRERAT, ADDONUAPLUS, PROCRERAT #### [place] [address] USAProtein,UrineNegativeNormalNegativeThe [facility] Physician GroupComment on above:Order Comment: Name Collection Type:: Clean-Voided MidstreamPerformed By: #### URMACRERAT, ADDONUAPLUS, PROCRERAT #### [place] [address] USASpecificy Murphys,Urine1.109Xsjcvx3.001-1.030The [facility] Physician GroupComment on above:Order Comment: Name Collection Type:: Clean- Voided MidstreamPerformed By: #### URMACRERAT, ADDONUAPLUS, PROCRERAT #### [place] [address] USAUrobilinogen,UrineNormalNormalNormalThe [facility] Physician GroupComment on above:Order Comment: Name Collection Type:: Clean- Voided MidstreamPerformed By: #### URMACRERAT, ADDONUAPLUS, PROCRERAT #### [place] [address] USAVit. B12/Folate Profileon 92-72-0559Iblxjldqq (Vitamin B12) [Mass/Vol]4548 pg/kHNjtu787-639Jxg [facility] Physician GroupComment on above:Performed By: #### URMACRERAT, ADDONUAPLUS, PROCRERAT #### [place] [address] USAFolate8.2 ng/mLNormal>5.9The [facility]ician Group Comment on above:Result Comment: Folate reference range: >5.9 ng/ml The WHO technical consultation on folate and vitamin b12 deficiencies has determined that folate concentrations less than 4 ng/ml are considered deficient.Performed By: #### URMACRERAT, ADDONUAPLUS, PROCRERAT #### [place] [address] USAVitamin D 25 Hydroxy Totalon 13-38-8962Lpoepar D 25 Hydroxy Total25.0 ng/qQXgx17-336Srm [facility] Physician GroupComment on above: Result Comment: VITAMIN D STATUS 25(OH)VITAMIN D RANGE (ng/mL) Deficient <20 Insufficient 20 to <30 Sufficient 30 to 100 Reference: Karen MF,Nicole NC, Ed LI, et al. Evaluation,treatment, and prevention of vitamin D deficiency; an Endocrine Society clinical practice guideline. JCEM. 2010; 96(7):1911-30. PERFORMED BY: [place] [address] PATHOLOGIST SOCIAL SCIENCES DEPARTMENT CHAIR SHANIQUE CALDERON M.D.Performed By: #### RAMOS ALEXIS PROCRERAT #### [place] [address] HAIVmF7c (Bld) [Mass fraction]on 38-54-6430Oiawtkfebjzcav and review of laboratory resultsNormalNOThe [facility] HealthcareLaboratory - Hematology and Cell countson 57-21-2182FvV9s (Bld) [Mass fraction]5.1 %[facility] HealthcareMR LUMBAR SPINE WO CONon 88-78-9835[place] [id number] Magnetic Resonance Report Signed Patient: SHERLY HUMPHREYS MR#: [id number] : 1970 Acct:[id number] Age/Sex: 53 / F ADM Date: 01/31/24 Loc: MRI Attending Dr: Elizabeth Meneses NP Ordering Physician: Elizabeth Meneses NP Date of Service: 01/31/24 Procedure(s): MR lumbar spine wo con Accession Number(s): [id number] cc: Janene Lew NP; Elizabeth Meneses NP [address] [address] Patient Name: SHERLY HUMPHREYS MRN: TBH:[id number] date: 1970 Sex: F Assigned Patient Location: MRI Current Patient Location: Accession/Order Number: [id number] Exam Date: 01/31/2024 10:00 Report Date: 02/01/2024 07:33 At the request of: ELIZABETH MENESES Procedure: MR lumbar spine wo con EXAMINATION: [...] right foraminal stenosis Electronically authenticated by: ALEX WEISS Date: 02/01/2024 07:33 Dictated By: Alex Weiss M.D. Signed By: 02/01/24 0736 DD/ TD/TT: Grocery Stock Clerk:TBHRadiology, Radiologist, - 02/01/2024 [place] [address] Magnetic Resonance Report Signed Patient: SHERLY HUMPHREYS MR#: [id number] : 1970 Acct:[id number] Age/Sex: 53 / F ADM Date: 01/31/24 Loc: MRI Attending Dr: Elizabeth Meneses NP Ordering Physician: Elizabeth Meneses NP Date of Service: 01/31/24 Procedure(s): MR lumbar spine wo con Accession Number(s): [id number] cc: Janene Lew NP; Elizabeth Meneses NP [place] [address] Patient Name: SHERLY HUMPHREYS MRN: [facility]:[id number] date: 1970 Sex: F Assigned Patient Location: MRI Current Patient Location: Accession/Order Number: [id number] Exam Date: 01/31/2024 10:00 Report Date: 02/01/2024 07:33 At the request of: ELIZABETH MENESES Procedure: MR lumbar spine wo con EXAMINATION: [...] right foraminal stenosis Electronically authenticated by: ALEX WEISS Date: 02/01/2024 07:33 Dictated By: Alex Weiss M.D. Signed By: 02/01/24735 DD/ 2 TD/TT: Grocery Stock Clerk: VARUN Memorial HospitalRadiology Study observation (narrative)[facility] LUMBAR SPINE WO CONOrdered By: Radiologist Radiology on 08-03-7831LTBUCooper County Memorial Hospital Work Phone: all CBC WITH AUTO DIFFon 32-53-5502EWMVAPKGC ABSOLUTE AUTO0.1NOMS HealthcareBasophils/100 WBC (Bld)0.6 %0.2 - 2.0 %[facility] Eosinophils/100 WBC (Bld)1.4 %0.9 - 7.0 %[facility] Memorial HospitalErythrocyte distribution width (RBC) [Ratio]14.1 %11.0 - 15.0 %NOMSt. Luke'S HospitalHematocrit (Bld) [Volume fraction]40.0 %36.0 - 48.0 %[facility] HospitalHemoglobin (Bld) [Mass/Vol]12.4 g/dL 12.0 - 16.0 g/dLCooper County Memorial HospitalIMMATURE GRANULOCYTES ABS AUTO0.03[facility] Immature granulocytes/100 WBC (Bld)0.4 %0.0 - 0.5 %[facility] HospitalLYMPHOCYTES ABSOLUTE AUTO1.9NOMS HealthcareLymphocytes/100 WBC (Bld)24.7 %20.5 - 60.0 %[facility] HospitalMCH (RBC) [Entitic mass]28.4 pg26.7 - 34.0 pgNONorth Kansas City HospitalMCHC (RBC) [Mass/Vol]31.0 g/dL29.9 - 35.2 g/dLCooper County Memorial HospitalMCV (RBC) [Entitic vol]91.5 fL 81.0 - 99.0 fLNOME HealthcareMONOCYTES ABSOLUTE AUTO0.4[facility] Monocytes/100 WBC (Bld)4.6 %1.7 - 12.0 %NOMSt. Luke'S HospitalNEUTROPHILS ABSOLUTE AUTO 5.3NOMS HealthcareNeutrophils/100 WBC (Bld)68.3 %43.0 - 75.0 %[facility] Platelet mean volume (Bld) [Entitic vol]11.1 fL9.5 - 13.5 fLNOMS HealthcareTB EO #0.1NOMS HealthcareTBH UNX154PGAJ HealthcareTBH RBC4.37NOMS HealthcareTBH WBC 7.8NOMS HealthcareCLINISYNCNOMS HealthcareOffice Visiton 22-96-8744Aidzud-up [id number] Sherly Humphreys Amanda 1970 F Date Provider Department Center 12/18/2023 271-TK [facility] No family history on file Level of Service:23277 [place] OFFICE/OUTPATIENT ESTABLISHED LOW MDM 20 [facility] HospitalGlucose Glucometer (BldC) [Mass/Vol]Ordered By: Ban Clemente on 82-10-7812Ayvaexw [Mass/Vol]107 mg/dLThe University Of Toledo Medical CenterComment on above:Random Glucose Reference Range is dependent on time and content of last meal. Glucose of more than 200 mg/dL in a nonstressed, ambulatory subject supports the diagnosis of Diabetes Mellitus.No Panel InformationOrdered By: Ban Clemente on 30-00-0306Zbmvjzr Glucose CommentGlu2: cleaned meterThe University Of Toledo Medical CenterCalcium [Mass/volume] in Serum or PlasmaOrdered By: Fernando Rosenberg on 12-09-8897Sxdowoo [Mass/Vol]9.7 mg/dL 8.6-10.3FPike Community HospitalCarbon dioxide, total [Moles/volume] in Serum or PlasmaOrdered By: Fernando Rosenberg on 61-55-7929DE5 [Moles/Vol]26.7 mmol/L21.0-31.0[facility] CenterChloride [Moles/volume] in Serum or PlasmaOrdered By: Fernando Rosenberg on 01-28-6474Hjozbpqg [Moles/Vol] 107 mmol/K79-091WlkdpcgyrThe [facility] CenterCreatinine [Mass/volume] in Serum or PlasmaOrdered By: Fernando Rosenberg on 53-82-3286Uorlcthfhz [Mass/Vol]2.04 mg/dLHigh0.60-1.20[facility] CenterGlucose [Mass/volume] in Serum or PlasmaOrdered By: Fernando Rosenberg on 10-11-2023 Glucose [Mass/Vol]96 mg/eC36-461VabgqgmznThe University Of [facility]edo Medical CenterComment on above:ADA recommended reference rangeRandom Glucose Reference Range is dependent on time and content of last meal. Glucose of more than 200 mg/dL in a nonstressed, ambulatory subject supports the diagnosisof Diabetes Mellitus.No Panel InformationOrdered By: Fernando Rosenberg on 45-81-8468Cmrggvmln GFR (CKD-EPI)28.812 mL/MinThe [facility] Of [facility] Medical CenterPharmacy Creatinine Clearance (ChemN/[facility] HospitalPotassium [Moles/volume] in Serum or PlasmaOrdered By: Fernando Rosenberg on 29-49-5549Xwexmirdq [Moles/Vol]5.2 mmol/LHigh3.5-5.1FCleveland Clinic Union Hospitalerum or plasma anion gap determinationOrdered By: Fernando Rosenberg on 32-50-0182Rvndh gap [Moles/Vol]11.5 mmol/L6.0-15.0[facility] Hospitalodium [Moles/volume] in Serum or PlasmaOrdered By: Fernando Rosenberg on 10-11-2023 Sodium [Moles/Vol]140 mmol/M282-919JnhchzrwhThe [facility] Of [facility] Medical CenterUrea nitrogen [Mass/volume] in Serum or PlasmaOrdered By: Fernando Rosenberg on 44-69-7331Gawk nitrogen [Mass/Vol]41 mg/dLHigh7-25[facility] CenterBasophils Auto (Bld) [#/Vol]Ordered By: Fernando Rosenberg on 10-02-2023 Basophils (Bld) [#/Vol]0.0 10*3/uL0.0-0.2FP[facility] Hospital Basophils/100 WBC Auto (Bld)Ordered By: Fernandojessica Rosenberg on 10-02-2023 Basophils/100 WBC (Bld)0.8 %.[facility] CenterCalcium [Mass/volume] in Serum or PlasmaOrdered By: Fernando Rosenberg on 10-02-2023 Calcium [Mass/Vol]9.0 mg/dL8.6-10.3FPike Community HospitalCarbon dioxide, total [Moles/volume] in Serum or PlasmaOrdered By: Fernando Rosenberg on 65-22-9733HD4 [Moles/Vol]26.9 mmol/L21.0-31.0[facility] CenterChloride [Moles/volume] in Serum or PlasmaOrdered By: Fernando Petersenmo on 36-25-8310Izcepsxg [Moles/Vol]110 mmol/DSpnx72-124PruughohsThe University Of [facility]edo Medical CenterCreatinine [Mass/volume] in Serum or PlasmaOrdered By: Fernando Petersenmo on 66-56-7382Zjvxbknbrl [Mass/Vol]1.52 mg/dLHigh0.60-1.20[facility] CenterComment on above:Delta: 2.27 on 10/01/23-0758Eosinophils Auto (Bld) [#/Vol]Ordered By: Fernando [facility] on 73-13-2239Mbtyrvxvqpn (Bld) [#/Vol]0.2 10*3/uL0.0-0.45[facility] CenterEosinophils/100 WBC Auto (Bld)Ordered By: Fernando Dobanner [facility] on 32-35-2347Vwchcjhctkm/100 WBC (Bld) 3.4 %.[facility] CenterErythrocyte distribution width Auto (RBC) [Ratio]Ordered By: Fernando Dobanner [facility] on 50-01-6287Eazrpijlrtu distribution width (RBC) [Ratio]14.3 %11.9-15.3FPike Community HospitalGlucose Glucometer (BldC) [Mass/Vol]Ordered By: Fernandojessica Petersenmo on 68-11-9735Tfvnwyu [Mass/Vol]93 mg/dLThe University Of [facility] Medical CenterComment on above:Random Glucose Reference Range is dependent on time and content of last meal. Glucose of more than 200 mg/dL in a nonstressed, ambulatory subject supports the diagnosis of Diabetes Mellitus.Glucose [Mass/volume] in Serum or PlasmaOrdered By: Fernando Rosenberg on 88-90-9369Apbsqmx [Mass/Vol]85 mg/qH27-288WkjicpaqoThe University Of [facility]edo Medical CenterComment on above:ADA recommended reference rangeRandom Glucose Reference Range is dependent on time and content of last meal. Glucose of more than 200 mg/dL in a nonstressed, ambulatory subject supports the diagnosisof Diabetes Mellitus.Hematocrit Auto (Bld) [Volume fraction]Ordered By: Fernando Rosenberg on 42-41-1790Dvvetixrwy (Bld) [Volume fraction]31.5 %Low 34.0-46.4FPike Community HospitalHemoglobin [Mass/volume] in Blood Ordered By: Fernando Rosenberg on 03-90-5197Clvkyqqohz (Bld) [Mass/Vol]10.4 g/dLLow11.8-15.4FPike Community HospitalLeukocytes [#/volume] corrected for nucleated erythrocytes in Blood by Automated counOrdered By: Fernando Rosenberg on 64-84-0353SZL corrected for nucl RBC Auto (Bld) [#/Vol]4.8 10*3/uL 3.8-11.6FPike Community HospitalLymphocytes Auto (Bld) [#/Vol]Ordered By: Fernando Rosenberg on 88-79-9985Albepfggdza (Bld) [#/Vol]2.1 10*3/uL 1.00-4.8[facility] CenterLymphocytes/100 WBC Auto (Bld)Ordered By: Fernando Rosenberg on 81-78-7715Djshnxhybfz/100 WBC (Bld)43.2 %.[facility] Clinic FoundationH Auto (RBC) [Entitic mass]Ordered By: Fernando Rosenberg on 82-55-9285QFS (RBC) [Entitic mass]30.1 pg24.7-34.3FPike Community HospitalMCHC Auto (RBC) [Mass/Vol]Ordered By: Fernando Rosenberg on 01-93-0923PKYI (RBC) [Mass/Vol]33.2 g/dL32.0-35.0[facility] CenterMCV Auto (RBC) [Entitic vol]Ordered By: Fernando Rosenberg on 10-02-2023 MCV (RBC) [Entitic vol]90.7 uD25-286FzsnilmosThe University Of [facility]edo Medical CenterMonocytes Auto (Bld) [#/Vol]Ordered By: Fernando Rosenberg on 36-76-4312Pogkczntc (Bld) [#/Vol]0.3 10*3/uL0.0-0.8[facility] CenterMonocytes/100 WBC Auto (Bld)Ordered By: Fernando Rosenberg on 60-49-5860Pmqspstbg/100 WBC (Bld)6.4 %. [facility] CenterNeutrophils Auto (Bld) [#/Vol]Ordered By: Fernando Rosenberg on 41-90-8272Ynimxxsocvg (Bld) [#/Vol]2.2 10*3/uL1.8-7.7 [facility] CenterNeutrophils/100 WBC Auto (Bld)Ordered By: Fernando Rosenberg on 31-49-4335Jicmjqcdkvv/100 WBC (Bld)46.2 %.[facility] CenterNo Panel InformationOrdered By: Fernando Rosenberg on 00-05-8477Eyxkmdwpy GFR (CKD-EPI)41.013 mL/MinThe [facility] Of [facility] Pharmacy Creatinine Clearance (Chem60.65[facility] Nucleated erythrocytes [Presence] in Blood by Automated countOrdered By: Fernando Rosenberg on 06-33-0876Fjgeazhan RBC Auto Ql (Bld)0.0 /100{WBC}0-0.5 [facility] CenterPlatelet mean volume Auto (Bld) [Entitic vol] Ordered By: Fernando Rosenberg on 61-03-1428Lmzbbalt mean volume (Bld) [Entitic vol]9.2 fL6.3-10.7FPike Community HospitalPlatelets Auto (Bld) [#/Vol] Ordered By: Fernando Rosenberg on 19-29-5257Jewdtstmy (Bld) [#/Vol]230 10*3/uL 150-450The [facility] CenterPotassium [Moles/volume] in Serum or PlasmaOrdered By: Fernando Rosenberg on 57-91-6569Ujmdeypot [Moles/Vol]4.5 mmol/L3.5-5.1FPike Community HospitalRBC Auto (Bld) [#/Vol]Ordered By: Fernando Rosenberg on 39-11-2580BTW (Bld) [#/Vol]3.47 10*6/uLLow3.60-5.00 [facility] Hospitalerum or plasma anion gap determinationOrdered By: Fernando Rosenberg on 09-53-2857Vwhua gap [Moles/Vol]9.6 mmol/L6.0-15.0 [facility] Hospitalodium [Moles/volume] in Serum or PlasmaOrdered By: Fernando Rosenberg on 89-21-6718Efsqds [Moles/Vol]142 mmol/V303-172 [facility] CenterUrea nitrogen [Mass/volume] in Serum or Plasma Ordered By: Fernando Rosenberg on 02-99-6631Ghwi nitrogen [Mass/Vol]34 mg/dL High7-25[facility] CenterWBC Auto (Bld) [#/Vol]Ordered By: Fernando Rosenberg on 22-52-2313ZWQ (Bld) [#/Vol]4.8 10*3/uL3.8-11.6FPike Community HospitalActivated partial thromboplastin time (aPTT) in platelet poor plasma by coagulation aOrdered By: Alma Deng on 58-53-5040kLGZ Coag (PPP) [Time]30.1 s25.1-36.5FPike Community HospitalComment on above:A hematocrit value greater than 55% may lead to inaccurate results in coagulation testing. Patientshaving hematocrit values >55% require a special collection tube for coagulation studies. Please contact the laboratory at [phone] for redraw instructions.Alanine aminotransferase [Enzymatic activity/volume] in Serum or PlasmaOrdered By: Alma Deng on 33-43-5839TUK [Catalytic activity/Vol]19 U/L7-52[facility] CenterAlbumin [Mass/volume] in Serum or Plasma by Bromocresol green (BCG) dye binding methoOrdered By: Alma Deng on 48-70-0239Clwreko BCG dye [Mass/Vol]3.9 g/dL3.5-5.7FPike Community HospitalAlkaline phosphatase [Enzymatic activity/volume] in Serum or PlasmaOrdered By: Alma Deng on 38-78-0629BBR [Catalytic activity/Vol]56 U/L 34-104The [facility] CenterAspartate aminotransferase [Enzymatic activity/volume] in Serum or PlasmaOrdered By: Alma Deng on 83-32-3639QUB [Catalytic activity/Vol]29 U/H62-47CfcxmhlcaThe University Of [facility] Medical CenterBacteria [Presence] in Urine by AutomatedOrdered By: Alma Deng on 85-81-3701Uoiochhh Auto Ql (U)None seen [HPF]None SeenThe University Of [facility]edo Medical CenterBilirubin Test strip Ql (U)Ordered By: Alma Deng on 31-31-5990Etoieuvmp Ql (U) NegativeNegativeThe [facility] Of [facility] Medical CenterBilirubin.total [Mass/volume] in Serum or PlasmaOrdered By: Alma Deng on 41-38-6243Nrcfjjgky [Mass/Vol] 0.3 mg/dL0.3-1.0[facility] CenterColor Auto (U)Ordered By: Alma Deng on 50-83-1006Chwrg (U)ColorlessYellowThe [facility] Of [facility] Medical CenterCreatinine [Mass/volume] in UrineOrdered By: Alma Deng on 10-01-2023 Creatinine (U) [Mass/Vol]65.00 mg/dLThe [facility] Of [facility]edo Medical CenterComment on above:No reference range establishedEosinophils detection in urine sediment by Nava stainOrdered By: Alma Deng on 71-58-8847Lbglkeppinw Nava stain Ql (Urine sed)0 %0-1FPike Community HospitalEpithelial cells.squamous [#/area] in Urine sediment by Automated countOrdered By: Alma Deng on 28-56-2204Autuohfudm cells.squamous Auto (Urine sed) [#/Area]N/AFPike Community HospitalErythrocytes [#/area] in Urine sediment by Automated countOrdered By: Alma Deng on 77-42-0936XGM Auto (Urine sed) [#/Area]None seen [HPF]0-4FPike Community HospitalGlobulin Calc (S) [Mass/Vol] Ordered By: Alma Deng on 91-72-2793Ksviooiw (S) [Mass/Vol]2.2 g/dLThe University Of Toledo Medical CenterGlucose [Mass/volume] in Urine by Test stripOrdered By: Alma Deng on 05-67-2617Jjozrnf Test strip (U) [Mass/Vol]Normal mg/dLNormal [facility] CenterHemoglobin Test strip Ql (U)Ordered By: Alma Deng on 58-99-9893Gmhfdcvdsq Ql (U)NegativeNegativeThe [facility] CenterHyaline casts [#/area] in Urine sediment by Automated countOrdered By: Alma Deng on 36-68-5482Zklshcs casts Auto (Urine sed) [#/Area]0-8 [LPF]0-8 [facility] CenterINR in Platelet poor plasma by Coagulation assayOrdered By: Alma Deng on 40-69-6860QUG Coag (PPP) [Relative time]1.1 {INR}[facility] CenterComment on above:INR Therapeutic Range A) Pre- and [...] strip Ql (U)Ordered By: Alma Deng on 09-54-3779Fvjqpvr Ql (U)Negative NegativeThe [facility] Of [facility] Medical CenterLeukocyte esterase [Presence] in Urine by Test stripOrdered By: Alma Deng on 05-39-0494Hextzanlq esterase Test strip Ql (U)1+HighNegativeThe [facility] CenterLeukocytes [#/area] in Urine sediment by Automated countOrdered By: Alma Deng on 82-50-6339PXX Auto (Urine sed) [#/Area]3-4 [HPF]0-4FPike Community HospitalMucus [Presence] in Urine by AutomatedOrdered By: Alma Deng on 13-19-3473Jzkzs Auto Ql (U)Rare [LPF][facility] CenterNitrite Test strip Ql (U) Ordered By: Alma Deng on 11-27-0476Hcwkixd Ql (U)NegativeNegTrumbull Regional Medical CenterNo Panel InformationOrdered By: Fernando Rosenberg on 89-43-4627Cyvfmsh Glucose CommentGlu2: cleaned meterThe [facility] CenterProtein Test strip (U) [Mass/Vol]Ordered By: Alma Deng on 10-01-2023 Protein (U) [Mass/Vol]NegativeNegTrumbull Regional Medical CenterProtein [Mass/volume] in Serum or PlasmaOrdered By: Alma Deng on 60-38-6658Fbqmrwy [Mass/Vol]6.1 g/dLLow6.4-8.9[facility] CenterProthrombin time (PT)Ordered By: Alma Deng on 77-95-8501EF Coag (PPP) [Time]12.2 s9.0-12.9 [facility] CenterComment on above:A hematocrit value greater than 55% may lead to inaccurate results in coagulation testing. Patientshaving hematocrit values >55% require a special collection tube for coagulation studies. Please contact the laboratory at [phone] for redraw instructions. Serum or plasma albumin/globulin mass ratioOrdered By: Alma Deng on 63-17-9597Dsymjxn/Globulin [Mass ratio]1.8 {ratio}[facility] Hospitalodium [Moles/volume] in UrineOrdered By: Alma Deng on 10-01-2023 Sodium (U) [Moles/Vol]54.0 mmol/LFPike Community HospitalComment on above:No reference range establishedSpecific gravity Test strip (U) [Rel density]Ordered By: Alma Deng on 67-82-9445Dqolvxuu gravity (U) [Rel density]1.0091.001-1.030[facility] CenterUrine appearanceOrdered By: Alma Deng on 11-97-9432Skhbzwcfnf (U)ClearClearFirelands Regional Medical CenterUrobilinogen Test strip (U) [Mass/Vol]Ordered By: Alma Deng on 42-97-6977Lyqnoomwzqnr (U) [Mass/Vol]Normal mg/dLNormalThe [facility] Of [facility] Medical CenterpH Test strip (U)Ordered By: Alma Deng on 76-88-7446wL (U)5.5 [pH]5.0-9.0[facility] CenterMM TOMOSYNTHESIS SCREENING BIon 28-34-6322FzcWoronoco, [place] [address] Mammography Report Signed Patient: SHERLY HUMPHREYS MR#: [id number] : 1970 Acct:[id number] Age/Sex: 52 / F ADM Date: 09/28/23 Loc: MAMMO Attending Dr: Janene Lew NP Ordering Physician: Janene Lew NP Results: Date of Service: 09/28/23 Follow Up: Procedure(s): MM tomosynthesis screening BI Accession Number(s): [id number] cc: Janene Lew NP Patient Name: SHERLY HUMPHREYS MR#: [id number] : 1970 Exam Date: 09/28/2023 Ordering Doctor: [...] PALPABLE LUMP SHOULD BE BIOPSIED. Dictated by: Alex Weiss MD on 09/28/2023 at 09:56 Approved by: Alex Weiss MD on 09/28/2023 at 10:49 Dictated By: Alex Weiss M.D. Signed By: 09/28/23 1050 DD/ 1049 TD/TT: Grocery Stock Clerk:VLADHRadiology, Radiologist, - 09/28/2023 [place] [address] Mammography Report Signed Patient: SHERLY HUMPHREYS MR#: [id number] : 1970 Acct:[id number] Age/Sex: 52 / F ADM Date: 09/28/23 Loc: MAMMO Attending Dr: Janene Lew NP Ordering Physician: Janene Lew NP Results: Date of Service: 09/28/23 Follow Up: Procedure(s): MM tomosynthesis screening BI Accession Number(s): [id number] cc: Janene Lew NP Patient Name: SHERLY HUMPHREYS MR#: [id number] : 1970 Exam Date: 09/28/2023 Ordering Doctor: [...] PALPABLE LUMP SHOULD BE BIOPSIED. Dictated by: Alex Weiss MD on 09/28/2023 at 09:56 Approved by: Alex Weiss MD on 09/28/2023 at 10:49 Dictated By: Alex Weiss M.D. Signed By: 09/28/23 1050 DD/ 1049 TD/TT: Grocery Stock Clerk: VARUN HealthcareRadiology Study observation (narrative)[facility] TOMOSYNTHESIS SCREENING BIOrdered By: Radiologist Radiology on [id number] [facility] Work Phone: albumin [Mass/volume] in Serum or Plasma by Bromocresol green (BCG) dye binding methoOrdered By: Halle Mac on 08-10-2023 Albumin BCG dye [Mass/Vol]4.0 g/dL3.5-5.7FP[facility] Automated erythrocytes count in urine sediment (number/area)Ordered By: Halle Mac on 61-91-9027BHP Auto (Urine sed) [#/Area]None seen [HPF]0-4FPike Community HospitalAutomated leukocytes count in urine sediment (number/area)Ordered By: Halle Mac on 23-60-9358THA Auto (Urine sed) [#/Area] 3-4 [HPF]0-4FPike Community HospitalBilirubin Test strip Ql (U)Ordered By: Halle Mac on 74-56-6906Hfzuzmawo Ql (U)NegativeNegativeThe [facility] Of [facility] Medical CenterCalcium [Mass/volume] in Serum or PlasmaOrdered By: Halle Mac on 08-21-3009Tqgpurm [Mass/Vol]9.3 mg/dL8.6-10.3FPike Community HospitalCarbon dioxide, total [Moles/volume] in Serum or PlasmaOrdered By: Halle Mac on 65-31-3497IE2 [Moles/Vol]24.8 mmol/L21.0-31.0[facility] CenterChloride [Moles/volume] in Serum or PlasmaOrdered By: Halle Mac on 10-65-8979Yqiphayf [Moles/Vol]110 mmol/PPxop64-723BxidibyrmThe [facility] Of [facility] Medical CenterColor Auto (U)Ordered By: Halle Mac on 73-24-6399Tbzuk (U)YellowYellow [facility] CenterCreatinine [Mass/volume] in Serum or Plasma Ordered By: Halle Mac on 12-40-4744Bnffievtsf [Mass/Vol]1.59 mg/dLHigh 0.60-1.20[facility] CenterCreatinine [Mass/volume] in Urine Ordered By: Halle Mac 49-40-5792Rditodbkxf (U) [Mass/Vol]92.0 mg/dL [facility] CenterComment on above:No reference range established Erythrocyte distribution width Auto (RBC) [Ratio]Ordered By: Halle Mac on 61-64-6541Zbzsbysymws distribution width (RBC) [Ratio]15.1 %11.9-15.3FPike Community HospitalFerritin [Mass/volume] in Serum or PlasmaOrdered By: Halle Mac on 00-86-8449Ekeqimnj [Mass/Vol]62.9 ng/mL11.0-306.8[facility] CenterFolate [Mass/volume] in Serum or PlasmaOrdered By: Halle Mac 46-56-6119Spzphc [Mass/Vol]15.7 ng/mL>5.9[facility] Comment on above:Folate reference range: >5.9 ng/mlThe WHO technical consultation on folate and vitamin z28nskxzrivyrev has determined that folate concentrations lessthan 4 ng/ml are considered deficient.Glucose [Mass/volume] in Serum or PlasmaOrdered By: Halle Mac 28-20-9397Ifkpamg [Mass/Vol]94 mg/aP23-865JkkjdcxsdThe [facility] CenterComment on above:ADA recommended reference rangeRandom Glucose Reference Range is dependent on time and content of last meal. Glucose of more than 200 mg/dL in a nonstressed, ambulatory subject supports the diagnosisof Diabetes Mellitus.Hematocrit Auto (Bld) [Volume fraction]Ordered By: Halle Mac 72-49-5850Tqhyimmffk (Bld) [Volume fraction]35.0 %34.0-46.4FPike Community HospitalHemoglobin [Mass/volume] in BloodOrdered By: Halle Mac 31-88-2192Jexcfbakeg (Bld) [Mass/Vol]11.5 g/dLLow11.8-15.4FPike Community HospitalIron [Mass/volume] in Serum or PlasmaOrdered By: Halle Mac on 91-21-2772Wwea [Mass/Vol]75 ug/fY75-826DzzlncrgcThe [facility] CenterIron binding capacity [Mass/volume] in Serum or PlasmaOrdered By: Halle Mac on 75-18-6010Eqni binding capacity [Mass/Vol]480 ug/fUKtrv091-462WarthshnpThe [facility] Of [facility] Center Iron saturation [Mass Fraction] in Serum or PlasmaOrdered By: Halle Mac on 50-78-4596Dktr saturation [Mass fraction]15.6 %Srg99-15VqtngpyojThe University Of Toledo Medical CenterKetones Auto test strip (U) [Mass/Vol]Ordered By: Halle Mac on 31-07-2790Zomqemk (U) [Mass/Vol]NegativeNegativeThe [facility] CenterLaboratory - UrinalysisOrdered By: Halle Mac on 36-43-6254Xyszwjv casts LM Ql (Urine sed)None seen [LPF]0-8[facility] CenterLeukocytes [#/volume] corrected for nucleated erythrocytes in Blood by Automated coun Ordered By: Halle Mac on 44-87-0668YJU corrected for nucl RBC Auto (Bld) [#/Vol]4.0 10*3/uL3.8-11.6FCenterville Auto (RBC) [Entitic mass]Ordered By: Halle Mac on 01-91-3653JNL (RBC) [Entitic mass]29.6 pg24.7-34.3FBellevue HospitalHC Auto (RBC) [Mass/Vol]Ordered By: Halle Mac on 20-95-7689JIVG (RBC) [Mass/Vol]32.9 g/dL32.0-35.0C[facility] Clinic FoundationV Auto (RBC) [Entitic vol]Ordered By: Halle Mac on 35-06-4264PMS (RBC) [Entitic vol]90.0 fM44-617OqehqgbseThe [facility] Center Magnesium [Mass/volume] in Serum or PlasmaOrdered By: Halle Mac on 08-10-2023 Magnesium [Mass/Vol]1.9 mg/dL1.9-2.7FPike Community HospitalNitrite Test strip Ql (U)Ordered By: Halle Mac on 08-93-8156Hpqexam Ql (U)Negative NegativeThe [facility] Medical CenterNo Panel InformationOrdered By: Halle Mac on 76-28-8622Grjryufjf GFR (CKD-EPI)38.856 mL/MinThe [facility] Of [facility] Medical CenterPharmacy Creatinine Clearance (ChemN/AFPike Community HospitalParathyrin.intact [Mass/volume] in Serum or PlasmaOrdered By: Halle Mac on 90-46-8551Jjotocjlst.intact [Mass/Vol]38.7 pg/xN55-95DdhyikxqoThe University Of [facility] Medical CenterPhosphate [Mass/volume] in Serum or PlasmaOrdered By: Halle Mac on 26-96-9842Khvqvucsw [Mass/Vol]3.7 mg/dL2.5-4.5FPike Community HospitalPlatelet mean volume Auto (Bld) [Entitic vol]Ordered By: Halle Mac on 36-68-9935Lgriawpi mean volume (Bld) [Entitic vol]9.8 fL6.3-10.7FPike Community HospitalPlatelets Auto (Bld) [#/Vol]Ordered By: Halle Mac on 61-40-8225Jkmqbnrdd (Bld) [#/Vol]217 10*3/uJ160-803ScmfqgxurThe [facility] Medical CenterPotassium [Moles/volume] in Serum or PlasmaOrdered By: Halle Mac on 60-21-7115Pxepkunrm [Moles/Vol]4.5 mmol/L3.5-5.1FPike [facility] HospitalProtein Auto test strip (U) [Mass/Vol]Ordered By: Halle Mac on 64-49-0651Ojwsfnd (U) [Mass/Vol]NegativeNegativeThe [facility] Of [facility] Medical CenterProtein [Mass/volume] in UrineOrdered By: Halle Mac on 08-10-2023 Protein (U) [Mass/Vol]mg/dL0-9[facility] CenterRBC Auto (Bld) [#/Vol]Ordered By: Halle Mac on 97-57-2132YCF (Bld) [#/Vol]3.89 10*6/uL 3.60-5.00[facility] Hospitalerum or plasma anion gap determinationOrdered By: Halle Mac on 13-13-0757Rvaxq gap [Moles/Vol]11.7 mmol/L6.0-15.0[facility] Hospitalodium [Moles/volume] in Serum or PlasmaOrdered By: Halle Mac on 08-79-2591Szrgeg [Moles/Vol]142 mmol/X381-199 [facility] Hospitalpecific gravity Auto test strip (U) [Rel density]Ordered By: Halle Mac on 66-98-4217Ehobjbar gravity (U) [Rel density] 1.0151.001-1.030Mary[facility] Hospitalquamous epithelial cells detection in urine sediment by light microscopyOrdered By: Halle Mac on 91-03-9744Dqhbctyrie cells.squamous LM Ql (Urine sed)None seen [HPF]0-2FPike Community HospitalTransferrin [Mass/volume] in Serum or PlasmaOrdered By: Halle Mac on 69-92-2711Vvwvceitynr [Mass/Vol]343 mg/iL411-779ObwxbvgvmThe University Of [facility]edo Medical CenterUrate [Mass/volume] in Serum or PlasmaOrdered By: Halle Mac 46-94-1176Inuok [Mass/Vol]8.6 mg/dLHigh2.3-6.6FPike Community HospitalUrea nitrogen [Mass/volume] in Serum or PlasmaOrdered By: Halle Mac on 86-00-6110Vwwl nitrogen [Mass/Vol]32 mg/dLHigh7-25[facility] CenterUrine bacteria detection by automated methodOrdered By: Halle Mac 53-35-7157Dlikczcq Auto Ql (U)None seenNone SeenThe [facility] Of [facility] Medical CenterUrine clarity by refractometry automatedOrdered By: Halle Mac 42-89-6484Awblhks Refractometry automated (U)ClearClearFPike Community HospitalUrine glucose measurement by automated test strip (mass/volume) Ordered By: Halle Mac 01-45-7849Ywymbee Auto test strip (U) [Mass/Vol] Normal mg/dLNormalThe [facility] Medical CenterUrine hemoglobin detection by automated test stripOrdered By: Halle Mac on 72-81-2801Ahhkkzuwih Auto test strip Ql (U)NegativeNegativeThe [facility] Of [facility] CenterUrine leukocyte esterase detection by automated test stripOrdered By: Halle Mac on 08-10-2023 Leukocyte esterase Auto test strip Ql (U)2+HighNegativeThe [facility] Medical CenterUrine protein/creatinine ratioOrdered By: Halle Mac on 90-27-2212Kyamohn/Creatinine (U) [Ratio]TNPThe [facility] Comment on above:Test not performedUrobilinogen Auto test strip (U) [Mass/Vol] Ordered By: Halle Mac on 68-51-8924Bnygswnjlmay (U) [Mass/Vol]Normal mg/dL NormalThe University Of [facility] Medical CenterVitamin B12 ser/plasOrdered By: Halle Mac on 58-76-7432Hvefodjnz (Vitamin B12) [Mass/Vol]164 pg/sKVbu593-262 [facility] CenterVitamin D+Metabolites [Mass/volume] in Serum or PlasmaOrdered By: Halle Mac on 94-18-6076Uccemez D+Metabolites [Mass/Vol] 22.4 ng/aBAbi64-778CbtecgwvgThe [facility] CenterComment on above:VITAMIN D STATUS 25(OH)VITAMIN D RANGE (ng/mL) Deficient <20 Insufficient 20 to <41Ibjzqdxfxs16 to 100Reference: Karen MF,Nicole SCOTT, Ed LI, et al. Evaluation,treatment, and prevention of vitamin D deficiency; an Endocrine Society clinical practice guideline. JCEM. 2010; 96(7):1911-30.pH Auto test strip (U)Ordered By: Halle Mac on 92-22-3751oW (U)5.5 [pH]5.0-9.0[facility] CenterValproate [Mass/volume] in Serum or PlasmaOrdered By: Fauzia Huffman on 83-62-1019Yxyjqvouy [Mass/Vol]14.5 ug/mL50.0-100.0The [facility] Medical CenterComment on above:Last dose: -Alanine aminotransferase [Enzymatic activity/volume] in Serum or PlasmaOrdered By: Halle Mac on 94-52-4680VVF [Catalytic activity/Vol]16 U/L7-52[facility] CenterAlbumin [Mass/volume] in Serum or Plasma by Bromocresol green (BCG) dye binding methoOrdered By: Halle Mac on 49-35-7830Dtsvlvl BCG dye [Mass/Vol]4.3 g/dL3.5-5.7FPike Community HospitalAlkaline phosphatase [Enzymatic activity/volume] in Serum or PlasmaOrdered By: Halle Mac on 15-02-0524IMW [Catalytic activity/Vol]61 U/J29-980YknhmajsjThe University Of [facility] Medical CenterAspartate aminotransferase [Enzymatic activity/volume] in Serum or PlasmaOrdered By: Halle Mac on 17-53-6365LWH [Catalytic activity/Vol]23 U/I84-79QkfiqoxerThe University Of [facility]edo Medical CenterAutomated erythrocytes count in urine sediment (number/area) Ordered By: Halle Mac on 99-30-1841XOD Auto (Urine sed) [#/Area]3-4 [HPF]0-4 [facility] CenterAutomated leukocytes count in urine sediment (number/area)Ordered By: Halle Mac on 23-98-5523QZM Auto (Urine sed) [#/Area] 10-19 [HPF]0-4FPike Community HospitalBilirubin Test strip Ql (U) Ordered By: Halle Mac on 98-51-2791Mclxdupzo Ql (U)2+NegativeThe University Of [facility] Medical CenterBilirubin.total [Mass/volume] in Serum or PlasmaOrdered By: Halle Mac on 38-31-2625Yghwqqngr [Mass/Vol]0.5 mg/dL0.3-1.0[facility] CenterCalcium [Mass/volume] in Serum or PlasmaOrdered By: Halle Mac on 11-22-1289Pzhgtim [Mass/Vol]9.3 mg/dL8.6-10.3FPike Community HospitalCarbon dioxide, total [Moles/volume] in Serum or PlasmaOrdered By: Halle Mac on 97-44-0410WZ8 [Moles/Vol]28.0 mmol/L21.0-31.0[facility] CenterCasts typing in urine sediment by light microscopyOrdered By: Halle Mac on 87-62-2875Dtcdt LM Nom (Urine sed)None seen [LPF]None Seen [facility] CenterChloride [Moles/volume] in Serum or Plasma Ordered By: Halle Mac on 13-82-7753Xnophymv [Moles/Vol]107 mmol/L98-107 [facility] CenterColor Auto (U)Ordered By: Halle Mac on 93-69-5340Tbovq (U)Dark yellowYellowThe University Of [facility] Medical CenterCreatinine [Mass/volume] in Serum or PlasmaOrdered By: Halle Mac on 24-08-8059Wklwoggrhk [Mass/Vol]1.52 mg/dL0.60-1.20[facility] CenterCreatinine [Mass/volume] in UrineOrdered By: Halle Mac on 12-31-8360Pezxceprcm (U) [Mass/Vol]mg/dL11.0-20.0[facility] CenterErythrocyte distribution width Auto (RBC) [Ratio]Ordered By: Halle Mac on 05-17-2023 Erythrocyte distribution width (RBC) [Ratio]13.4 %11.9-15.3FPike Community HospitalFerritin [Mass/volume] in Serum or PlasmaOrdered By: Halle Mac on 45-90-5325Lmgcuywx [Mass/Vol]51.8 ng/mL11.0-306.8[facility] CenterFine granular cast count in urine sediment by microscopy (number/low power field )Ordered By: Halle Mac on 51-13-1251Styf Granular Casts LM.LPF (Urine sed) [#/Area]5-9 [LPF]0-1FPike Community HospitalGlobulin Calc (S) [Mass/Vol]Ordered By: Halle Mac on 96-93-8697Soawnmzw (S) [Mass/Vol]2.3 g/dL [facility] CenterGlucose [Mass/volume] in Serum or PlasmaOrdered By: Halle Mac on 35-10-3302Hlimstz [Mass/Vol]123 mg/rL86-275OqyirpzdtThe University Of Toledo Medical CenterComment on above:ADA recommended reference rangeRandom Glucose Reference Range is dependent on time and content of last meal. Glucose of more than 200 mg/dL in a nonstressed, ambulatory subject supports the diagnosisof Diabetes Mellitus.Hematocrit Auto (Bld) [Volume fraction]Ordered By: Halle Mac on 71-97-9223Zgkecjmnfx (Bld) [Volume fraction]36.1 %34.0-46.4 [facility] CenterHemoglobin [Mass/volume] in BloodOrdered By: Halle Mac on 35-16-3878Ybpuyqnztj (Bld) [Mass/Vol]11.8 g/dL11.8-15.4FPike Community HospitalIron [Mass/volume] in Serum or PlasmaOrdered By: Halle Mac on 21-66-7090Bqry [Mass/Vol]57 ug/tB10-628YsbmdblgoThe University Of [facility] Medical CenterIron binding capacity [Mass/volume] in Serum or PlasmaOrdered By: Halle Mac on 99-92-5715Zgnr binding capacity [Mass/Vol]538 ug/jQ327-309EgkifyyboThe University Of [facility] Medical CenterIron saturation [Mass Fraction] in Serum or PlasmaOrdered By: Halle Mca on 44-82-1305Rmhz saturation [Mass fraction]10.6 %20-50 [facility] CenterKetones Auto test strip (U) [Mass/Vol]Ordered By: Halle Mac on 52-68-6742Lqfsrju (U) [Mass/Vol]1+NegativeThe [facility] Of [facility] Medical CenterLaboratory - UrinalysisOrdered By: Halle Mac on 05-17-2023 Hyaline casts LM Ql (Urine sed)None seen [LPF]0-8[facility] CenterLeukocytes [#/volume] corrected for nucleated erythrocytes in Blood by Automated counOrdered By: Halle Mac on 49-76-2991GGN corrected for nucl RBC Auto (Bld) [#/Vol]5.5 10*3/uL3.8-11.6FPike Community HospitalMCH Auto (RBC) [Entitic mass]Ordered By: Halle Mac on 24-19-3559GNC (RBC) [Entitic mass]29.4 pg24.7-34.3FPike Community HospitalMCHC Auto (RBC) [Mass/Vol] Ordered By: Halle Mac on 75-96-1825VSFC (RBC) [Mass/Vol]32.8 g/dL32.0-35.0 [facility] CenterMCV Auto (RBC) [Entitic vol]Ordered By: Halle Mac on 32-09-5654MUO (RBC) [Entitic vol]89.4 kF48-240IsnstjizqThe University Of [facility] Medical CenterMagnesium [Mass/volume] in Serum or PlasmaOrdered By: Halle Mac on 08-67-1491Cvgdrtxxk [Mass/Vol]2.0 mg/dL1.9-2.7FPike Community HospitalMucus LM Ql (Urine sed)Ordered By: Halle Mac on 33-43-6165Crcud Ql (Urine sed)3+ [LPF][facility] CenterNitrite Test strip Ql (U) Ordered By: Halle Mac on 27-96-4568Kfddvpd Ql (U)NegativeNegativeThe [facility] Of [facility] CenterNo Panel InformationOrdered By: Halle Mac on 28-38-8882Mnqfpqaxr GFR (CKD-EPI)41.013 mL/MinThe [facility] Creatinine Clearance (ChemN/[facility] Parathyrin.intact [Mass/volume] in Serum or PlasmaOrdered By: Halle Mac on 67-04-8895Slfserblkz.intact [Mass/Vol]36.3 pg/nC69-05JwdudiqmmThe University Of [facility] Medical CenterPhosphate [Mass/volume] in Serum or PlasmaOrdered By: Halle Mac on 36-32-3906Fadgdacxb [Mass/Vol]4.4 mg/dL2.5-4.5FP[facility] Hospital Platelet mean volume Auto (Bld) [Entitic vol]Ordered By: Halle Mac on 75-71-9770Jnbbrqid mean volume (Bld) [Entitic vol]9.5 fL6.3-10.7FPike Community HospitalPlatelets Auto (Bld) [#/Vol]Ordered By: Halle Mac on 08-41-7163Bifuhmcmx (Bld) [#/Vol]233 10*3/kD295-634AxynxvzbaThe University Of [facility] Medical CenterPotassium [Moles/volume] in Serum or PlasmaOrdered By: Halle Mac on 45-08-8011Puaaqrazt [Moles/Vol]3.8 mmol/L3.5-5.1FPike Community HospitalProtein Auto test strip (U) [Mass/Vol]Ordered By: Halle Mac on 96-18-3934Xmiqzqg (U) [Mass/Vol]30 mg/dLNegativeThe [facility] CenterProtein [Mass/volume] in Serum or PlasmaOrdered By: Halle Mac on 70-59-5591Ivsawfh [Mass/Vol]6.6 g/dL6.4-8.9[facility] Protein [Mass/volume] in UrineOrdered By: Halle Mac on 95-11-6173Jgksqos (U) [Mass/Vol]35 mg/dL0-9[facility] CenterRBC Auto (Bld) [#/Vol] Ordered By: Halle Mac on 45-27-5050ZII (Bld) [#/Vol]4.03 10*6/uL3.60-5.00 [facility] Hospitalerum or plasma albumin/globulin mass ratio Ordered By: Halle Mac on 71-35-9051Jdezgol/Globulin [Mass ratio]1.9 {ratio} [facility] Hospitalerum or plasma anion gap determinationOrdered By: Halle Mac on 03-86-6967Wbviu gap [Moles/Vol]10.8 mmol/L6.0-15.0[facility] Hospitalodium [Moles/volume] in Serum or PlasmaOrdered By: Halle Mac on 94-89-2401Rsvnwd [Moles/Vol]142 mmol/X025-585XmiidnhppMarymount Hospitalpecific gravity Auto test strip (U) [Rel density]Ordered By: Halle Mac on 57-77-9423Wpcyjcnm gravity (U) [Rel density]1.0251.001-1.030Mary[facility] Hospitalquamous epithelial cells detection in urine sediment by light microscopyOrdered By: Halle Mac on 55-02-4094Eqxedfxokh cells.squamous LM Ql (Urine sed)3-4 [HPF]0-2FPike Community HospitalTransferrin [Mass/volume] in Serum or PlasmaOrdered By: Halle Mac on 05-17-2023 Transferrin [Mass/Vol]384 mg/uX478-792NzoskdixrThe University Of Toledo Medical CenterUrate [Mass/volume] in Serum or PlasmaOrdered By: Halle Mac on 76-80-0593Hvsis [Mass/Vol]7.3 mg/dL2.3-6.6FPike Community HospitalUrea nitrogen [Mass/volume] in Serum or PlasmaOrdered By: Halle Mac on 03-77-0842Dnld nitrogen [Mass/Vol]26 mg/dL7-25The [facility] CenterUrine bacteria detection by automated methodOrdered By: Halle Mac on 55-15-2982Aurhbjff Auto Ql (U)None seenNone SeenThe University Of [facility] Medical CenterUrine clarity by refractometry automatedOrdered By: Halle Mac on 19-21-5040Vpbpmnw Refractometry automated (U)CloudyClearFPike Community HospitalUrine culture routineOrdered By: Halle Mac on 91-26-6713Zcomgbgd identified Cx Nom (U)2 DaysThe University Of [facility] Medical CenterUrine glucose measurement by automated test strip (mass/volume)Ordered By: Halle Mac on 02-07-5498Xxhdlwd Auto test strip (U) [Mass/Vol]Normal mg/dLNormalThe [facility] CenterUrine hemoglobin detection by automated test stripOrdered By: Halle aMc on 72-21-8987Nxgngyefdt Auto test strip Ql (U)NegativeNegativeThe [facility] Of [facility] CenterUrine leukocyte esterase detection by automated test stripOrdered By: Halle Mac on 75-75-9279Rapxcmtkq esterase Auto test strip Ql (U)1+ NegativeThe University Of [facility] Medical CenterUrine protein/creatinine ratioOrdered By: Halle Mac on 93-39-8345Mlqatyt/Creatinine (U) [Ratio]TNPThe University Of Toledo Medical CenterComment on above:Test not performedUrobilinogen Auto test strip (U) [Mass/Vol]Ordered By: Halle Mac on 42-56-8880Zxyadweqiuoi (U) [Mass/Vol]Normal mg/dLNormalThe [facility] CenterValproate [Mass/volume] in Serum or PlasmaOrdered By: Fauzia Huffman on 39-02-9066Uebgymaai [Mass/Vol]24.0 ug/mL50.0-100.0The [facility] CenterComment on above: Last dose: -Vitamin D+Metabolites [Mass/volume] in Serum or PlasmaOrdered By: Halle Mac on 29-99-5895Ukxaqnf D+Metabolites [Mass/Vol]24.3 ng/hA40-357 [facility] CenterComment on above:VITAMIN D STATUS 25(OH)VITAMIN D RANGE (ng/mL) Deficient <20 Insufficient 20 to <56Haocjpvscf36 to 100Reference: Karen MF,Nicole NC, Ed LI, et al. Evaluation,treatment, and prevention of vitamin D deficiency; an Endocrine Society clinical practice guideline. JCEM. 2010; 96(7):1911-30.Yeast detection in urine sediment by light microscopyOrdered By: Halle Mac on 00-40-1385Cwpbr LM Ql (Urine sed)None seen [HPF]None SeenThe [facility] Of [facility] Medical CenterpH Auto test strip (U)Ordered By: Halle Mac on 55-43-8583dH (U) 5.0 [pH]5.0-9.0[facility] CenterCA ECHO DOPPLER COMPLETEon 25-63-0720[address] [address] Cardiology Report Signed Patient: SHERLY HUMPHREYS MR#: [id number] : 1970 Acct:[id number] Age/Sex: 52 / F ADM Date: 05/10/23 Loc: CARD Attending Dr: Jonathan Small NP Ordering Physician: Jonathan Small NP Date of Service: 05/10/23 Procedure(s): CA echo doppler complete Accession Number(s): [id number] cc: Janene Lew NP; Jonathan Small NP Patient Name: SHERLY HUMPHREYS MR#: [id number] : 1970 Exam Date: 05/10/2023 Ordering Doctor: MRS. WARRENTimmy SMALL NP ECHOCARDIOGRAM REPORT PROCEDURE: CA ECHO DOPPLER [...] 4.94 mm[Hg], 5.76 mm[Hg] Right [facility] Right (more content not included)...TBHRadiology, Radiologist, MD - 05/10/2023 [place] [address] Cardiology Report Signed Patient: SHERLY HUMPHREYS MR#: [id number] : 1970 Acct:[id number] Age/Sex: 52 / F ADM Date: 05/10/23 Loc: CARD Attending Dr: Jonathan Small NP Ordering Physician: Jonathan Small NP Date of Service: 05/10/23 Procedure(s): CA echo doppler complete Accession Number(s): [id number] cc: Janene Lew CONFIGURATION MANAGEMENT ADVISOR; Jonathan Small ELIER Patient Name: SHERLY HUMPHREYS MR#: [id number] : 1970 Exam Date: 05/10/2023 Ordering Doctor: MRS. JONATHAN SMALL ELIER ECHOCARDIOGRAM REPORT PROCEDURE: CA ECHO DOPPLER [...] Godoy M.D. Signed By: 05/10/23 1439 DD/ 36 TD/TT: Grocery Stock Clerk: [facility]ITALMynor Memorial HospitalRadiology Study observation (narrative)[facility] HospitalCA ECHO DOPPLER COMPLETEOrdered By: Radiologist Radiology on 03-28-8290AWGMCooper County Memorial Hospital Work Phone: Provider Orderson 86-80-6172Edchmlmj Orders [id number]#1.00OTGTCleveland Clinic Lutheran HospitalBN on 68-78-0719Cqjtsgwsllj peptide B (Bld) [Mass/Vol]391.0 pg/mLNormal<=900.0The [facility] HospitalComment on above:Performed By: #### LIPID, BMP #### [facility] [address] [place] [address] Dr. Jag Burris AUTO DIFFon 06-13-5748UMVW #0.1 103/ulNormal0.0-0.1The [facility] HospitalComment on above:Performed By: #### LIPID, BMP #### [facility] [address] [place] [address] Dr. Jag WaldropBasophils/100 WBC (Bld)1.4 %Normal0.2-2.0[facility] Comment on above:Performed By: #### LIPID, BMP #### [facility] [address] [place] [address] Dr. Jag Aguero #0.1 103/ulNormal0.0-0.7The [facility] HospitalComment on above: Performed By: #### LIPID, BMP #### [facility] [address] [place] [address] Dr. Jag Hartosinophils/100 WBC (Bld)1.6 %Normal0.9-7.0The [facility] Comment on above:Performed By: #### LIPID, BMP #### [facility] [address] [place] [address] Dr. Jag Hartrythrocyte distribution width (RBC) [Ratio]15.0 %Fmsiim47.0-15.[address] [facility] HospitalComment on above:Performed By: #### LIPID, BMP #### [facility] [address] [place] [address] Dr. Jag Davisatocrit (Bld) [Volume fraction]37.2 %Cjeerv02.0-48.0The [facility] HospitalComment on above:Performed By: #### LIPID, BMP #### [facility] [address] [place] [address] Dr. Jag WaldropHemoglobin (Bld) [Mass/Vol]11.6 g/dLCritically low12.0-16.0The [facility] HospitalComment on above:Performed By: #### LIPID, BMP #### [facility] [address] [place] [address] Dr. Jag Del Real #0.01 10e3/ulNormal0.00-0.03The [facility] HospitalComment on above:Performed By: #### LIPID, BMP #### [facility] [address] [place] [address] Dr. Jag Del Real %0.2 %Normal0.0-0.5The [facility] HospitalComment on above: Performed By: #### LIPID, BMP #### [facility] [address] [place] [address] Dr. Jag Boo #1.9 103/ulNormal1.2-3.8The [facility] HospitalComment on above:Performed By: #### LIPID, BMP #### [facility] [address] [place] [address] Dr. Jag Castlehocytes/100 WBC (Bld)39.1 %Zlzibc68.5-60.0The [facility] HospitalComment on above:Performed By: #### LIPID, BMP #### [facility] [address] [place] [address] Dr. Jag CaputoUAL DIFF REQNONormalThe [facility] HospitalComment on above: Performed By: #### LIPID, BMP #### [facility] [address] [place] [address] Dr. Jag Mc (RBC) [Entitic mass]27.5 cdEberjc16.7-34.0The [facility] HospitalComment on above:Performed By: #### LIPID, BMP #### [facility] [address] [place], [place] [id number] Dr. Jag Lujan (RBC) [Mass/Vol]31.2 g/vEBdiqgf89.9-35.2The [facility] HospitalComment on above:Performed By: #### LIPID, BMP #### [facility] [address] [place] [address] Dr. Jag LujanV (RBC) [Entitic vol]88.2 rHXorrys19.0-99.0The [facility] HospitalComment on above:Performed By: #### LIPID, BMP #### [facility] [address] [place] [address] Dr. Jag Meléndez #0.3 103/ulNormal0.3-0.8The [facility] HospitalComment on above:Performed By: #### LIPID, BMP #### [facility] [address] [place] [address] Dr. Jag Ayonocytes/100 WBC (Bld)6.5 %Normal1.7-12.0The [facility] Comment on above:Performed By: #### LIPID, BMP #### [facility] [address] [place] [address] #2.5 103/ulNormal1.4-6.5The [facility] HospitalComment on above:Performed By: #### LIPID, BMP #### [facility] [address] [place] [address] Dr. Jag Trejoutrophils/100 WBC (Bld)51.2 %Ievrkx77.0-75.0The [facility] HospitalComment on above:Performed By: #### LIPID, BMP #### [facility] [address] [place] [address] Dr. Jag Cooneylet mean volume (Bld) [Entitic vol]10.5 fLNormal9.5-13.5The [facility] HospitalComment on above:Performed By: #### LIPID, BMP #### [facility] [address] [place] [address] Dr. Jag WaldropPLT272 103/rrNkjhdw828-802Pct [facility] HospitalComment on above: Performed By: #### LIPID, BMP #### [facility] [address] [address] [address] Jag WaldropRBC4.22 106/ulNormal4.20-5.40The [facility] on above:Performed By: #### LIPID, BMP #### [facility] [address] [address] [address] Jag WaldropWBC4.9 103/ulNormal4.0-11.0The [facility] HospitalComment on above: Performed By: #### LIPID, BMP #### [facility] [address] [place] [address] Dr. Jag Zelaya URINE PROFILEon 47-61-9404Gtxqpumlp Ql (U)NegativeNormal NEGATIVEKindred Hospital DaytonComment on above:Performed By: #### ERUR #### [facility] [address] [place] [address] Dr. Jag Jack (U)CLEARNormalCLEARThe [facility] HospitalComment on above: Performed By: #### ERUR #### [facility] [address] [place] [address] Dr. Jag Lemus (U)LT. YELLOWNormalYELLOWSelect Medical Specialty Hospital - [facility] on above:Performed By: #### ERUR #### [facility] [address] [place] [address] Dr. Jag WeissCATHERINE micrscopic examination will be performed if indicated. NormalThe [facility] HospitalComment on above:Performed By: #### ERUR #### [facility] [address] [place] [address] Dr. Jag WaldropGlucose Ql (U)NegativeNormalNEGATIVEKindred Hospital DaytonComment on above:Performed By: #### ERUR #### [facility] [address] [place] [address] Dr. Jag WaldropHemoglobin Ql (U)NegativeNormalNEGATIVEMercy Health Allen Hospital on above:Performed By: #### ERUR #### [facility] [address] [place] [address] Dr. Jag Brown Ql (U)NegativeNormalNEGATIVEThe [facility] HospitalComment on above:Performed By: #### ERUR #### [facility] [address] [place] [address] Dr. Jag CarbajalOCYTESNegativeNormalNEGATIVEThe [facility] HospitalComment on above:Performed By: #### ERUR #### [facility] [address] [place] [address] Dr. Jag Pollacktrbetsy Ql (U)NegativeNormalNEGATIVEThe [facility] HospitalComment on above:Performed By: #### ERUR #### [facility] [address] [place] [address] Dr. Jag WaldroppH (U)7.0 [pH]Normal5-9The [facility] HospitalComment on above: Performed By: #### ERUR #### [facility] [address] [place] [address] Dr. Jag WaldropSPEC GRAVITY1.190Cwksvn9.005-<=1.025The [facility] HospitalComment on above:Performed By: #### ERUR #### [facility] [address] [place] [address] Dr. Jag Murillo PROTEINNegativeNormalNEGATIVE/ TRACEThe [facility] on above:Performed By: #### ERUR #### [facility] [address] [place] [address] Dr. Jag Mathis MICRO INDNOT INDICATEDNormalThe [facility] HospitalComment on above:Performed By: #### ERUR #### [facility] [address] [place] [address] Dr. Jag WaldropUrobilinogen Qn (U)0.2 {Chris'U}/dLNormal0.2 - 1.0The [facility] HospitalComment on above:Performed By: #### ERUR #### [facility] [address] [place] [address] Dr. Jag StaffordF 14(COMP METB)on 38-49-4452Olkepwi [Mass/Vol]3.9 g/dLNormal 3.4-5.0The [facility] HospitalComment on above:Performed By: #### LIPID, BMP #### [facility] [address] [address] [address] Jag WaldropAlbumin/Globulin [Mass ratio]1.2 {ratio}NormalThe [facility] HospitalComment on above:Performed By: #### LIPID, BMP #### [facility] [address] [address] [address] Jag Jalloh [Catalytic activity/Vol]95 U/MCmaomn01-633Jlm [facility] HospitalComment on above:Performed By: #### LIPID, BMP #### [facility] [address] [address] [address] Jag Robertson [Catalytic activity/Vol]31 U/GJtcxuy07-21Hnn [facility] HospitalComment on above:Performed By: #### LIPID, BMP #### [facility] [address] [place] [address] Dr. Jag Ortega gap [Moles/Vol]12.7 mmol/LNormalThe [facility] Comment on above:Performed By: #### LIPID, BMP #### [facility] [address] [place] [address] Dr. Jag Fonseca [Catalytic activity/Vol]34 U/EUpofzk55-18Iri [facility] Hospitalment on above:Performed By: #### LIPID, BMP #### [facility] [address] [address] [address] Jag WaldropBilirubin [Mass/Vol]0.4 mg/dLNormal0.2-1.0The [facility] Comment on above:Performed By: #### LIPID, BMP #### [facility] [address] [address] [address] Jag WaldropCalcium [Mass/Vol]9.1 mg/dLNormal8.5-10.1The [facility] Comment on above:Performed By: #### LIPID, BMP #### [facility] [address] [address] [address] Jag WaldropChloride [Moles/Vol]107 mmol/SVnpimt58-940Qtb [facility] Comment on above:Performed By: #### LIPID, BMP #### [facility] [address] [place] [address] Dr. Jag WaldropCO2 [Moles/Vol]28.1 mmol/UTxzxzf74.0-32.0The [facility] Comment on above:Performed By: #### LIPID, BMP #### [facility] Laboratory [address] [place] [address] Dr. Jag WaldropCreatinine [Mass/Vol]1.18 mg/dLCritically high0.55-1.02The [facility] HospitalComment on above:Performed By: #### LIPID, BMP #### [facility] Laboratory [address] [place] [address] Dr. Jag HartGFR-AF PUOXTTIL08 mL/min/1.05y8Zrqtvlybpo low>=60The [facility] HospitalComment on above:Performed By: #### LIPID, BMP #### [facility] Laboratory [address] [place] [address] Dr. Jag HartGFR-NON AF WDWJGRGB12 mL/min/1.59y1Iuschyiqxl low>=60The [facility] HospitalComment on above:Performed By: #### LIPID, BMP #### [facility] Laboratory [address] [place] [address] Dr. Jag WaldropGlobulin (S) [Mass/Vol]3.3 g/dLNormalThe [facility] HospitalComment on above:Performed By: #### LIPID, BMP #### [facility] [address] [place] [address] Dr. Jag WaldropGlucose [Mass/Vol]111 mg/dLCritically hggw60-682Zpt [facility] HospitalComment on above:Performed By: #### LIPID, BMP #### [facility] Laboratory [address] [place] [address] Dr. Jag WaldropPotassium [Moles/Vol]3.8 mmol/LNormal3.5-5.1The [facility] Comment on above:Performed By: #### LIPID, BMP #### [facility] [address] [place] [address] Dr. Jag WaldropProtein [Mass/Vol]7.2 g/dLNormal6.4-8.2[facility] Comment on above:Performed By: #### LIPID, BMP #### [facility] Laboratory [address] [place] [address] Dr. Jag WaldropSodium [Moles/Vol]144 mmol/RKqmrfg868-705Vju [facility] Comment on above:Performed By: #### LIPID, BMP #### [facility] Laboratory [address] [place] [address] Dr. Jag Roche nitrogen [Mass/Vol]19.0 mg/dLCritically high7.0-18.0[facility] DaytonComment on above:Performed By: #### LIPID, BMP #### [facility] Laboratory [address] [place] [address] Dr. Jag Roche nitrogen/Creatinine [Mass ratio]16.1 mg/mgNoWVUMedicine Harrison Community HospitalComment on above:Performed By: #### LIPID, BMP #### [facility] Laboratory [address] [place] [address] Dr. Jag WaldropPROTIMEon [id number] Coag (PPP) [Relative time]{INR}NormalThe [facility] HospitalComment on above:Performed By: #### PT #### [facility] Laboratory [address] [place] [address] Dr. Jag Sampson GUIDELINESSEE BELOWChillicothe HospitalComment on above:Result Comment: DESIRED INR: 2.0 - 3.0 CONDITIONS NOT LISTED BELOW 2.5 - 3.5 FOR PROSTHETIC HEART VALVE REPLACEMENT 2.5 - 3.5 RECURRENT THROMBOSIS Performed By: #### PT #### [facility] Laboratory [address] [place] [address] Dr. Jag WaldropPT Coag (PPP) [Time]9.7 sNormal9.0-11.6The [facility] Comment on above:Performed By: #### PT #### [facility] Laboratory [address] [place] [address] Dr. Jag Valerio, HIGH SENSITIVITYon 33-34-9588LQPAAQ00.8 pg/mLNormal 4.0-51.3The [facility] on above:Result Comment: CUT-OFF POINTS HAVE BEEN ESTABLISHED BASED ON THE FOURTH UNIVERSAL DEFINITIONS OF MYOCARDIAL INFARCTION. THE UPPER REFERENCE LIMIT (URL) OF TROPONIN, DEFINED THE 99TH PERCENTILE OF cTnI DISTRIBUTION IN A REFERENCE POPULATION, HAS BEEN CONFIRMED THE DECISION THRESHOLD FOR IA DIAGNOSIS.Performed By: #### LIPID, BMP #### [facility] Laboratory [address] [place] [address] Dr. Jag WaldropXR CHEST 2 Von [id number] CHEST 2 VXR CHEST 2 V COMPARISON: None. CLINICAL HISTORY: PLEURODYNIA TECHNIQUE: 2 views FINDINGS: The cardiac silhouette is enlarged, stable. The pulmonary vascular pattern is normal. The lungs are clear and the pleural margins are sharp. There are no significant skeletal abnormalities. IMPRESSION: CARDIOMEGALY. NO ACUTE RADIOGRAPHIC FINDINGS. Electronically authenticated by: WAN JENKINS Date: 2022-09-07 16:47[facility] HospitalGLYCOHEMOGLOBIN A1Con [id number] RECOMMENDATIONSEE BELOW NormalSelect Medical Specialty [facility] on above:Result Comment: ADA RECOMMENDED LIMIT 4.0 - 6.0 ADA THERAPEUTIC TARGET < 7.0 ACTION SUGGESTED > 7.0Performed By: #### LIPID, BMP #### [facility] [address] [place] [address] Dr. Jag WaldorpGlucose [Mass/Vol]120 mg/dLNoFostoria City Hospital on above:Performed By: #### LIPID, BMP #### [facility] [address] [place] [address] Dr. Jag WaldropHbA1c (Bld) [Mass fraction]5.8 %Normal4.5-6.2The [facility] HospitalComment on above:Performed By: #### LIPID, BMP #### [facility] Laboratory [address] [place] [address] Dr. Jag WaldropPROF CHEM 8 (BAS METB)on [id number] gap [Moles/Vol]13.2 mmol/LNormalThe [facility] on above:Performed By: #### BMP #### [facility] Laboratory [address] [address] [address] Jag WaldropCalcium [Mass/Vol]9.0 mg/dLNormal8.5-10.1The [facility] Comment on above:Performed By: #### BMP #### [facility] [address] [address] [address] Jag WaldropChloride [Moles/Vol]107 mmol/TPewzuj09-790Org [facility] Comment on above:Performed By: #### BMP #### [facility] [address] [address] [address] Jag WaldropCO2 [Moles/Vol]26.3 mmol/FSxudnd91.0-32.0The [facility] Comment on above:Performed By: #### BMP #### [facility] [address] [address] [address] Jag WaldropCreatinine [Mass/Vol]1.03 mg/dLCritically high0.55-1.02The [facility] HospitalComment on above:Performed By: #### BMP #### [facility] [address] [address] [address] Rm ChangEGFR-AF BURMESE>60Normal>=60[facility] DaytonComment on above:Performed By: #### BMP #### [facility] [address] [address] [address] Jag HartGFR-NON AF UBOFIJYB27 mL/min/1.43g1Etbbyysodj low>=60The [facility] HospitalComment on above:Performed By: #### BMP #### [facility] [address] [address] [address] Jag WaldropGlucose [Mass/Vol]149 mg/dLCritically dakg38-606Ldu [facility] HospitalComment on above:Performed By: #### BMP #### [facility] [address] [address] [address] Jag WaldropPotassium [Moles/Vol]4.5 mmol/LNormal3.5-5.1The [facility] Comment on above:Performed By: #### BMP #### [facility] [address] [address] [address] Jag WaldropSodium [Moles/Vol]142 mmol/VPdrqiv239-497Hae [facility] Comment on above:Performed By: #### BMP #### [facility] [address] [address] [address] Jag Roche nitrogen [Mass/Vol]22.0 mg/dLCritically high7.0-18.0The [facility] HospitalComment on above:Performed By: #### BMP #### [facility] [address] [address] [address] Jag Roche nitrogen/Creatinine [Mass ratio]21.4 mg/mgNormalThe [facility] HospitalComment on above:Performed By: #### BMP #### [facility] [address] [address] [address] Jag WaldropCT ABD/PELVIS WO CONon [id number] ABD/PELVIS WO CONEXAMINATION: CT ABD/PELVIS WO CON, [...] Electronically authenticated by: NATHAN COLE Date: 2022-05-29 22:50NormMount [address] Mary Hospitale [facility] HospitalUS KVNG DOP LEG RTon [id number] KVNG DOP LEG RTEXAM: US KVNG DOP [...] Electronically authenticated by: LUZ COELLO Date: 2022-05-29 22:42NormAdams County HospitalCB AUTO DIFFon [id number] #0.1 103/ulNormal0.0-0.1[facility] DaytonComment on above:Performed By: #### LIPID, BMP #### [facility] [address] [address] [address] Jag Schulzsophils/100 WBC (Bld)0.7 %Normal0.2-2.0[facility] Comment on above:Performed By: #### LIPID, BMP #### [facility] [address] [address] [address] Jag Aguero #0.1 103/ulNormal0.0-0.7The [facility] HospitalComment on above: Performed By: #### LIPID, BMP #### [facility] [address] [address] [address] Jag Hartosinophils/100 WBC (Bld)1.5 %Normal0.9-7.0[facility] Comment on above:Performed By: #### LIPID, BMP #### [facility] [address] [place] [address] Dr. Jag Schulzthrocyte distribution width (RBC) [Ratio]13.9 %Jhcaci94.0-15.0 [facility] Hospitalment on above:Performed By: #### LIPID, BMP #### [facility] [address] [place] [address] Dr. Jag WaldropHematocrit (Bld) [Volume fraction]34.2 %Critically low36.0-48.[address] [facility] HospitalComment on above:Performed By: #### LIPID, BMP #### [facility] Laboratory [address] [place] [address] Dr. Jag WaldropHemoglobin (Bld) [Mass/Vol]10.9 g/dLCritically low12.0-16.0The [facility] HospitalComment on above:Performed By: #### LIPID, BMP #### [facility] Laboratory [address] [place] [address] Dr. Jag Del Real #0.02 10e3/ulNormal0.00-0.03The [facility] HospitalComment on above:Performed By: #### LIPID, BMP #### [facility] [address] [place] [address] Dr. Jag Del Real %0.2 %Normal0.0-0.5The [facility] HospitalComment on above: Performed By: #### LIPID, BMP #### [facility] Laboratory [address] [place] [address] Dr. Jag Boo #2.5 103/ulNormal1.2-3.8The [facility] HospitalComment on above:Performed By: #### LIPID, BMP #### [facility] [address] [place] [address] Dr. Jag Castlehocytes/100 WBC (Bld)30.4 %Jakajj48.5-60.0[facility] DaytonComment on above:Performed By: #### LIPID, BMP #### [facility] [address] [place] [address] Dr. Jag Cummings DIFF REQNONormalThe [facility] HospitalComment on above: Performed By: #### LIPID, BMP #### [facility] [address] [place] [address] Dr. Jag Lujan (RBC) [Entitic mass]27.1 ilTjgdpx03.7-34.0The [facility] HospitalComment on above:Performed By: #### LIPID, BMP #### [facility] Laboratory [address] [place] [address] Dr. Jag Lujan (RBC) [Mass/Vol]31.9 g/yBBxkbxu33.9-35.2The [facility] HospitalComment on above:Performed By: #### LIPID, BMP #### [facility] Laboratory [address] [place] [address] Dr. Jag Lujan (RBC) [Entitic vol]85.1 vFFmknfo45.0-99.0The [facility] HospitalComment on above:Performed By: #### LIPID, BMP #### [facility] [address] [place] [address] Dr. Jag Meléndez #0.5 103/ulNormal0.3-0.8The [facility] HospitalComment on above:Performed By: #### LIPID, BMP #### [facility] [address] [place] [address] Dr. Jag Ayonocytes/100 WBC (Bld)6.7 %Normal1.7-12.0The [facility] Comment on above:Performed By: #### LIPID, BMP #### [facility] [address] [place] [address] #4.9 103/ulNormal1.4-6.5The [facility] HospitalComment on above:Performed By: #### LIPID, BMP #### [facility] Laboratory [address] [place] [address] Dr. Jag Trejoutrophils/100 WBC (Bld)60.5 %Wwvgpb54.0-75.0The [facility] HospitalComment on above:Performed By: #### LIPID, BMP #### [facility] [address] [address] [address] Jag Cárdenas mean volume (Bld) [Entitic vol]10.3 fLNormal9.5-13.5The [facility] on above:Performed By: #### LIPID, BMP #### [facility] [address] [place] [address] Dr. Jag WaldropPLT256 103/fiEehzqi548-518Wth [facility] on above: Performed By: #### LIPID, BMP #### [facility] [address] [place] [address] Dr. Jag WaldropRBC4.02 106/ulCritically low4.20-5.40The [facility] on above:Performed By: #### LIPID, BMP #### [facility] [address] [place] [address] Dr. Jag WaldropWBC8.1 103/ulNormal4.0-11.0The [facility] on above: Performed By: #### LIPID, BMP #### [facility] [address] [place] [address] Dr. Jag Zelaya URINE PROFILEon [id number] Ql (U)NegativeNormal NEGATIVEThe [facility] on above:Performed By: #### LIPID, BMP #### [facility] [address] [place] [address] Dr. Jag Jack (U)CLEARNormalCLEARThe [facility] on above: Performed By: #### LIPID, BMP #### [facility] [address] [place] [address] Dr. Jag Lemus (U)YELLOWNormalYELLOWThe [facility] on above: Performed By: #### LIPID, BMP #### [facility] Laboratory [address] [place] [address] Dr. Jag Elias micrscopic examination will be performed if indicated. NormalThe [facility] Hospitalment on above:Performed By: #### LIPID, BMP #### [facility] [address] [address] [address] Jag WaldropGlucose Ql (U)NegativeNormalNEGATIVEKindred Hospital DaytonComment on above:Performed By: #### LIPID, BMP #### [facility] [address] [address] [address] Jag WadlropHemoglobin Ql (U)NegativeNormalNEGMercy Health Comment on above:Performed By: #### LIPID, BMP #### [facility] [address] [address] [address] Jag WaldropKetones Ql (U)15 mg/dlAbnormalNEGATIVEKindred Hospital [place] Comment on above:Performed By: #### LIPID, BMP #### [facility] Laboratory [address] [place] [address] Dr. Jag WaldropLEUKOCYTESTRACEAbnormalNEGATIVEKindred Hospital DaytonComment on above:Performed By: #### LIPID, BMP #### [facility] [address] [place] [address] Dr. Jag WaldropNitrite Ql (U)NegativeNormalNEGATIVEKindred Hospital DaytonComment on above:Performed By: #### LIPID, BMP #### [facility] [address] [place] [address] Dr. Jag WaldroppH (U)5.5 [pH]Normal5-9[facility] DaytonComment on above: Performed By: #### LIPID, BMP #### [facility] [address] [place] [address] Dr. Jag WaldropSPEC GRAVITY1.972Ykxoeg4.005-<=1.025[facility] DaytonComment on above:Performed By: #### LIPID, BMP #### [facility] [address] [address] [address] Jag Murillo PROTEINNegativeNormalNEGATIVE/ TRACEKindred Hospital Dayton Comment on above:Performed By: #### LIPID, BMP #### [facility] [address] [place] [address] Dr. Jag Mathis MICRO INDINDICATEDNormalThProMedica Defiance Regional HospitalComment on above: Performed By: #### LIPID, BMP #### [facility] [address] [place] [address] Dr. Jag WaldropUrobilinogen Qn (U)0.2 {Chris'U}/dLNormal0.2 - 1.0The [facility] HospitalComment on above:Performed By: #### LIPID, BMP #### [facility] [address] [place] [address] Dr. Jag WaldropPROF CHEM 8 (BAS METB)on [id number] gap [Moles/Vol]14.2 mmol/LNormalThe [facility] HospitalComment on above:Performed By: #### BMP #### [facility] [address] [place] [address] Dr. Jag WaldropCalcium [Mass/Vol]9.1 mg/dLNormal8.5-10.1The [facility] Comment on above:Performed By: #### BMP #### [facility] [address] [place] [address] Dr. Jag WaldropChloride [Moles/Vol]106 mmol/CAnbhvx82-952Ffg [facility] Comment on above:Performed By: #### BMP #### [facility] [address] [place] [address] Dr. aJg WaldropCO2 [Moles/Vol]23.5 mmol/PQqwxsi12.0-32.0[facility] Comment on above:Performed By: #### BMP #### [facility] [address] [place] [address] Dr. Jag WaldropCreatinine [Mass/Vol]1.29 mg/dLCritically high0.55-1.02The [facility] HospitalComment on above:Performed By: #### BMP #### [facility] [address] [place] [address] Dr. Jag HartGFR-AF NLHBDCJB48 mL/min/1.86j3Tqcyowsrro low>=60The [facility] HospitalComment on above:Performed By: #### BMP #### [facility] [address] [place] [address] Dr. Yilan ChangEGFR-NON AF NORXYHCM76 mL/min/1.18e1Zsrlgynbgh low>=60The [facility] HospitalComment on above:Performed By: #### BMP #### [facility] [address] [address] [address] Jag WaldropGlucose [Mass/Vol]93 mg/xGEdaybs90-090LoiKindred Hospital [place] Comment on above:Performed By: #### BMP #### [facility] [address] [address] [address] Jag WaldropPotassium [Moles/Vol]3.7 mmol/LNormal3.5-5.1The [facility] Comment on above:Performed By: #### BMP #### [facility] [address] [address] [address] Jag Conraddium [Moles/Vol]140 mmol/YVthnlc784-881Lhj [facility] Comment on above:Performed By: #### BMP #### [facility] [address] [address] [address] Jag WaldropUrea nitrogen [Mass/Vol]24.0 mg/dLCritically high7.0-18.0The [facility] HospitalComment on above:Performed By: #### BMP #### [facility] Laboratory [address] [place] [address] Dr. Jag Roche nitrogen/Creatinine [Mass ratio]18.6 mg/mgNoWVUMedicine Harrison Community HospitalComascension macomb on above:Performed By: #### BMP #### [facility] [address] [address] [address] Jag Baez MICROSCOPIC ONLYon [id number]G SEEN [facility] DaytonComment on above:Performed By: #### LIPID, BMP #### [facility] [address] [address] [address] Jag Cardona identified Cx Nom (U)NOT INDICATEDNoWVUMedicine Harrison Community HospitalComment on above:Performed By: #### LIPID, BMP #### [facility] [address] [address] [address] Jga Adkins SEENNormalNONE SEENSelect Medical Specialty [facility] on above:Performed By: #### LIPID, BMP #### [facility] [address] [address] [address] Jag Weathers LM Nom (Urine sed)NONE SEENNormalNONE SEENKindred Hospital DaytonComascension macomb on above:Performed By: #### LIPID, BMP #### [facility] [address] [address] [address] Rm ChangEpithelial cells LM Ql (Urine sed)RARENormalNONE SEEN /RAREThe [facility] HospitalComascension macomb on above:Performed By: #### LIPID, BMP #### [facility] [address] [address] [address] Jag AlexanderCONONE SEENNormalNONE SEENSelect Medical Specialty [facility] on above:Performed By: #### LIPID, BMP #### [facility] [address] [address] [address] Jag WaldropQhfopPQQ2-12Rhrnbuqr2-8ZheSelect Medical Specialty [facility] on above:Performed By: #### LIPID, BMP #### [facility] [address] [address] [address] Jag WaldropWBC0-2AbnormalNONE SEENSelect Medical Specialty Hospital [facility] on above: Performed By: #### LIPID, BMP #### [facility] [address] [address] [address] Jag WaldropMG MAMM SCREEN 3D ORESTES CADon [id number] MAMM SCREEN 3D ORESTES CAD Patient: SHERLY HUMPHREYS Exam Date: 03/29/2022 : 1970 Gender:F Ordering : AGUSTINA [employer]W [employer]UD Admission #: [id number] Family : Order #: [id number] CLICK HERE TO VIEW EXAM RADIOLOGY REPORT [...] [facility] BREAST COMPOSITION: Scattered areas fibroglandular density. [...] by: Kathy Lobato M.D. on 03/29/2022 at 15:31[facility] CompanyI [facility] WO W CONon [id number] [facility] [address] WO W CONEXAMINATION: MRI [facility] CON HISTORY: Spinal stenosis ; chronic right [...] Electronically authenticated by: KATHY LOBATO Date: 2022-03-23 11:26[facility] HospitalMRI TSPINE WO W CONon [id number] TSPINE WO W CONEXAMINATION: MRI TSPINE WO [...] Electronically authenticated by: KATHY LOBATO Date: 2022-03-23 12:50[facility] HospitalPROF CHEM 8 (BAS METB)on 11-64-0845Snmhm gap [Moles/Vol]11.8 mmol/LNormalKindred Hospital DaytonComment on above:Performed By: #### POCGLUC #### [facility] [address] [place] [address] Dr. Jag WaldropCalcium [Mass/Vol]9.0 mg/dLNormal8.5-10.1[facility] Comment on above:Performed By: #### POCGLUC #### [facility] [address] [address] [address] Jag WaldropChloride [Moles/Vol]107 mmol/PGpypml43-778PkfKindred Hospital Dayton Comment on above:Performed By: #### POCGLUC #### [facility] [address] [address] [address] Jag WaldropCO2 [Moles/Vol]30.2 mmol/XYwdczn34.0-32.0The [facility] Comment on above:Performed By: #### POCGLUC #### [facility] [address] [address] [address] Jag WaldropCreatinine [Mass/Vol]1.32 mg/dLCritically high0.55-1.02The [facility] HospitalComment on above:Performed By: #### POCGLUC #### [facility] [facility] [address] [address] [address] Rm ChangEGFR-AF IHXRMPAN71 mL/min/1.94m5Tgljgcmfma low>=60The [facility] HospitalComment on above:Performed By: #### POCGLUC #### [facility] [address] [place] [address] Dr. Jag HartGFR-NON AF HFXKHOEA39 mL/min/1.91b4Asdwcapwto low>=60The [facility] HospitalComment on above:Performed By: #### POCGLUC #### [facility] [address] [place] [address] Dr. Jag WaldropGlucose [Mass/Vol]117 mg/dLCritically sopj94-904Xcu [facility] HospitalComment on above:Performed By: #### POCGLUC #### [facility] [address] [place] [address] Dr. Jag WaldropPotassium [Moles/Vol]4.0 mmol/LNormal3.5-5.1The [facility] Comment on above:Performed By: #### POCGLUC #### [facility] [address] [address] [address] Jag WaldropSodium [Moles/Vol]145 mmol/HGqwutf412-540Qbl [facility] Comment on above:Performed By: #### POCGLUC #### [facility] [address] [address] [address] Jag WaldropUrea nitrogen [Mass/Vol]23.0 mg/dLCritically high7.0-18.0The [facility] HospitalComment on above:Performed By: #### POCGLUC #### [facility] [address] [place] [address] Dr. Jag WaldropUrea nitrogen/Creatinine [Mass ratio]17.4 mg/mgNoalThProMedica Defiance Regional HospitalComment on above:Performed By: #### POCGLUC #### [facility] [address] [place] [address] Dr. Jag Burris AUTO DIFFon [id number] #0.1 103/ulNormal0.0-0.1The [facility] HospitalComment on above:Performed By: #### POCGLUC #### [facility] [address] [place] [address] Dr. Jag WaldropBasophils/100 WBC (Bld)1.0 %Normal0.2-2.0[facility] Comment on above:Performed By: #### POCGLUC #### [facility] [address] [place] [address] Dr. Jag HartO #0.1 103/ulNormal0.0-0.7The [facility] HospitalComment on above: Performed By: #### POCGLUC #### [facility] [address] [place] [address] Dr. Jag Hartosinophils/100 WBC (Bld)1.9 %Normal0.9-7.0The [facility] Comment on above:Performed By: #### POCGLUC #### [facility] [address] [place] [address] Dr. Jag Hartrythrocyte distribution width (RBC) [Ratio]13.2 %Qnxcmd17.0-15.[address] [facility] HospitalComment on above:Performed By: #### POCGLUC #### [facility] [address] [place] [address] Dr. Jag WaldropHematocrit (Bld) [Volume fraction]36.7 %Qkqxdn17.0-48.0The [facility] HospitalComment on above:Performed By: #### POCGLUC #### [facility] [address] [place] [address] Dr. Jag WaldropHemoglobin (Bld) [Mass/Vol]11.4 g/dLCritically low12.0-16.0The [facility] HospitalComment on above:Performed By: #### POCGLUC #### [facility] [address] [address] [address] Jga Del Real #0.03 10e3/ulNormal0.00-0.03The [facility] HospitalComascension [place] on above:Performed By: #### POCGLUC #### [facility] [address] [address] [address] Jag Del Real %0.5 %Normal0.0-0.5The [facility] HospitalComment on above: Performed By: #### POCGLUC #### [facility] [address] [place] [address] Dr. Jag Boo #2.1 103/ulNormal1.2-3.8The [facility] HospitalComment on above:Performed By: #### POCGLUC #### [facility] [address] [place] [address] Dr. Jag Castlehocytes/100 WBC (Bld)34.1 %Tetzxx58.5-60.0The [facility] HospitalComascension [place] on above:Performed By: #### POCGLUC #### [facility] [address] [place] [address] Dr. Jag Cummings DIFF REQNONormalThe [facility] HospitalComment on above: Performed By: #### POCGLUC #### [facility] [address] [place] [address] Dr. Jag Mc (RBC) [Entitic mass]28.4 wbTtyrct61.7-34.0The [facility] HospitalComment on above:Performed By: #### POCGLUC #### [facility] [address] [place] [address] Dr. Jag Lujan (RBC) [Mass/Vol]31.1 g/hXBbhfzx47.9-35.2The [facility] HospitalComment on above:Performed By: #### POCGLUC #### [facility] [address] [place] [address] Dr. Jag Lujan (RBC) [Entitic vol]91.5 hGIcohhe86.0-99.0The [facility] HospitalComment on above:Performed By: #### POCGLUC #### [facility] [address] [place] [address] Dr. Jag Meléndez #0.5 103/ulNormal0.3-0.8The [facility] HospitalComment on above:Performed By: #### POCGLUC #### [facility] [address] [place] [address] Dr. Jag Ayonocytes/100 WBC (Bld)8.4 %Normal1.7-12.0The [facility] Comment on above:Performed By: #### POCGLUC #### [facility] [address] [place] [address] #3.3 103/ulNormal1.4-6.5The [facility] HospitalComment on above:Performed By: #### POCGLUC #### [facility] [address] [place] [address] Dr. Jag Trejoutrophils/100 WBC (Bld)54.1 %Vuwchx78.0-75.0The [facility] HospitalComment on above:Performed By: #### POCGLUC #### [facility] [address] [place] [address] Dr. Jag Cárdenas mean volume (Bld) [Entitic vol]10.6 fLNormal9.5-13.5The [facility] HospitalComment on above:Performed By: #### POCGLUC #### [facility] [address] [place] [address] Dr. Jag WaldropPLT294 103/bhMstyht976-300Kvo [facility] HospitalComment on above: Performed By: #### POCGLUC #### [facility] [address] [place] [address] Dr. Jag WaldropRBC4.01 106/ulCritically low4.20-5.40The [facility] HospitalComment on above:Performed By: #### POCGLUC #### [facility] [address] [place] [address] Dr. Jag WaldropWBC6.2 103/ulNormal4.0-11.0The [facility] HospitalComment on above: Performed By: #### POCGLUC #### [facility] [address] [place] [address] Dr. Jag Bass [id number] [Mass/Vol]mg/LNormal<=1.0The [facility] HospitalComment on above:Performed By: #### ERUR #### [facility] [address] [address] [address] Jag WaldropCT TSPINE WO CONon [id number] TSPINE WO CONEXAMINATION: CT TSPINE WO CON, [...] Electronically authenticated by: ALEX AVINA Date: 2022-02-19 19:25NormalThe [facility] URINE PROFILEon 48-50-1965Wgeipqnzg Ql (U)NegativeNormal NEGATIVEThe [facility] HospitalComment on above:Performed By: #### POCGLUC #### [facility] [address] [place] [address] Dr. Jag WaldropClarity (U)CLEARNormalCLEARThe [facility] HospitalComment on above: Performed By: #### POCGLUC #### [facility] [address] [address] [address] Jag Alejandrelor (U)LT. YELLOWNormalYELLOWKindred Hospital DaytonComment on above:Performed By: #### POCGLUC #### [facility] [address] [address] [address] Jag Elias micrscopic examination will be performed if indicated. NormalKettering Health Greene Memorial HospitalComment on above:Performed By: #### POCGLUC #### [facility] [address] [address] [address] Jag Rasmussenose Ql (U)NegativeNormalNEGATIVEKindred Hospital DaytonComment on above:Performed By: #### POCGLUC #### [facility] [address] [place] [address] Dr. Jag WaldropHemoglobin Ql (U)NegativeNormalNEGATIVEKindred Hospital [place] Comment on above:Performed By: #### POCGLUC #### [facility] [address] [place] [address] Dr. Jag Reidones Ql (U)NegativeNormalNEGATIVEKindred Hospital DaytonComment on above:Performed By: #### POCGLUC #### [facility] [address] [place] [address] Dr. Jag WaldropLEUKOCYTESNegativeNormalNEGATIVEKindred Hospital DaytonComment on above:Performed By: #### POCGLUC #### [facility] [address] [place] [address] Dr. Jag WaldropNitrite Ql (U)NegativeNormalNEGATIVEKindred Hospital DaytonComment on above:Performed By: #### POCGLUC #### [facility] [address] [address] [address] Jag WaldroppH (U)5.5 [pH]Normal5-9[facility] DaytonComment on above: Performed By: #### POCGLUC #### [facility] [address] [place] [address] Dr. Jag WaldropSPEC GRAVITY1.905Zpigbh7.005-<=1.025[facility] DaytonComment on above:Performed By: #### POCGLUC #### [facility] [address] [address] [address] Jag Murillo PROTEINNegativeNormalNEGATIVE/ TRACEThe [facility] Comment on above:Performed By: #### POCGLUC #### [facility] [address] [place] [address] Dr. Jag Mathis MICRO INDNOT INDICATEDNormalThe [facility] HospitalComment on above:Performed By: #### POCGLUC #### [facility] [address] [address] [address] Jag Hamptonbilinogen Qn (U)0.2 {Chris'U}/dLNormal0.2 - 1.0The [facility] HospitalComment on above:Performed By: #### POCGLUC #### [facility] [address] [place] [address] Dr. Jag WaldropPROF CHEM 8 (BAS METB)on [id number] gap [Moles/Vol]10.8 mmol/LNormalKindred Hospital DaytonComment on above:Performed By: #### ERUR #### [facility] [address] [place] [address] Dr. Jag WaldropCalcium [Mass/Vol]9.0 mg/dLNormal8.5-10.1[facility] Comment on above:Performed By: #### ERUR #### [facility] [address] [place] [address] Dr. Jag WaldropChloride [Moles/Vol]106 mmol/UMvmuiv54-310Ccf [facility] Comment on above:Performed By: #### ERUR #### [facility] [address] [place] [address] Dr. Jag WaldropCO2 [Moles/Vol]28.1 mmol/TOwtugw66.0-32.0The [facility] Comment on above:Performed By: #### ERUR #### [facility] [address] [place] [address] Dr. Jag WaldropCreatinine [Mass/Vol]1.06 mg/dLCritically high0.55-1.02The [facility] HospitalComment on above:Performed By: #### ERUR #### [facility] [address] [address] [address] Jag HartGFR-AF BURMESE>60Normal>=60The [facility] HospitalComment on above:Performed By: #### ERUR #### [facility] [address] [address] [address] Jag HartGFR-NON AF DCGMLYSC09 mL/min/1.15k4Bkswqkbebh low>=60The [facility] HospitalComment on above:Performed By: #### ERUR #### [facility] [address] [address] [address] Jag WaldropGlucose [Mass/Vol]89 mg/yEMlleva13-431Eyl [facility] Comment on above:Performed By: #### ERUR #### [facility] [address] [address] [address] Jag WaldropPotassium [Moles/Vol]3.9 mmol/LNormal3.5-5.1[facility] Comment on above:Performed By: #### ERUR #### [facility] [address] [address] [address] Jag WaldropSodium [Moles/Vol]141 mmol/MTknopc548-726WpvKindred Hospital [place] Comment on above:Performed By: #### ERUR #### [facility] [address] [address] [address] Jag WaldropUrea nitrogen [Mass/Vol]19.0 mg/dLCritically high7.0-18.0The [facility] HospitalComascension [place] on above:Performed By: #### ERUR #### [facility] [address] [address] [address] Jag WaldropUrea nitrogen/Creatinine [Mass ratio]17.9 mg/mgNormalThe [facility] HospitalComascension [place] on above:Performed By: #### ERUR #### [facility] [address] [address] [address] Jag Bangura RATE WESTERGRENon 21-24-5454FCD RATE19 mm/hrNormal<=30The [facility] HospitalComment on above:Performed By: #### LIPID, BMP #### [facility] [address] [place] [address] Dr. Jag StaffordF CHEM 8 (BAS METB)on 11-17-8416Tjkwl gap [Moles/Vol]17.3 mmol/LNormalThe [facility] HospitalComment on above:Performed By: #### LIPID, BMP #### [facility] [address] [place] [address] Dr. Jag WaldropCalcium [Mass/Vol]9.2 mg/dLNormal8.5-10.1The [facility] Comment on above:Performed By: #### LIPID, BMP #### [facility] [address] [place] [address] Dr. Jag WaldropChloride [Moles/Vol]108 mmol/LCritically zdhh92-761Usy [facility] HospitalComment on above:Performed By: #### LIPID, BMP #### [facility] [address] [place] [address] Dr. Jag WaldropCO2 [Moles/Vol]20.0 mmol/LCritically low21.0-32.0The [facility] HospitalComment on above:Performed By: #### LIPID, BMP #### [facility] [address] [place] [address] Dr. Jag WaldropCreatinine [Mass/Vol]1.40 mg/dLCritically high0.55-1.02The [facility] HospitalComment on above:Performed By: #### LIPID, BMP #### [facility] [address] [place] [address] Dr. Jag HartGFR-AF OOHARPAH87 mL/min/1.42k8Ztaflrwpfl low>=60The [facility] HospitalComment on above:Performed By: #### LIPID, BMP #### [facility] [address] [place] [address] Dr. Jag HartGFR-NON AF EFLCBFDS64 mL/min/1.51j7Upxkahzdhl low>=60The [facility] HospitalComment on above:Performed By: #### LIPID, BMP #### [facility] [address] [address] [address] Jag WaldropGlucose [Mass/Vol]126 mg/dLCritically gudq80-884Oco [facility] HospitalComment on above:Performed By: #### LIPID, BMP #### [facility] [address] [place] [address] Dr. Jag WaldropPotassium [Moles/Vol]5.3 mmol/LCritically high3.5-5.1The [facility] HospitalComment on above:Performed By: #### LIPID, BMP #### [facility] [address] [place] [address] Dr. Jag WaldropSodium [Moles/Vol]140 mmol/CBtrwtq167-553Pet [facility] Comment on above:Performed By: #### LIPID, BMP #### [facility] [address] [place] [address] Dr. Jag WaldropUrea nitrogen [Mass/Vol]31.0 mg/dLCritically high7.0-18.0The [facility] HospitalComment on above:Performed By: #### LIPID, BMP #### [facility] [address] [place] [address] Dr. Jag Roche nitrogen/Creatinine [Mass ratio]22.1 mg/mgNormalThe [facility] HospitalComascension [place] on above:Performed By: #### LIPID, BMP #### [facility] [address] [place] [address] Dr. Jag Burris AUTO DIFFon [id number] #0.1 103/ulNormal0.0-0.1The [facility] HospitalComment on above:Performed By: #### CBC #### [facility] [address] [place] [address] Dr. Jag WaldropBasophils/100 WBC (Bld)1.0 %Normal0.2-2.0The [facility] Comment on above:Performed By: #### CBC #### [facility] [address] [place] [address] Dr. Rm ChangEO #0.2 103/ulNormal0.0-0.7The [facility] HospitalComment on above: Performed By: #### CBC #### [facility] [address] [place] [address] Dr. Jag Hartosinophils/100 WBC (Bld)3.3 %Normal0.9-7.0The [facility] Comment on above:Performed By: #### CBC #### [facility] [address] [place] [address] Dr. Jag Hartrythrocyte distribution width (RBC) [Ratio]13.2 %Fdhmnu36.0-15.[address] [facility] HospitalComment on above:Performed By: #### CBC #### [facility] [address] [place] [address] Dr. Jag WaldropHematocrit (Bld) [Volume fraction]35.6 %Critically low36.0-48.0 [facility] DaytonComment on above:Performed By: #### CBC #### [facility] [address] [place] [address] Dr. Jag WaldropHemoglobin (Bld) [Mass/Vol]10.6 g/dLCritically low12.0-16.0The [facility] HospitalComment on above:Performed By: #### CBC #### [facility] [address] [place] [address] Dr. Jag Del Real #0.01 10e3/ulNormal0.00-0.03The [facility] HospitalComment on above:Performed By: #### CBC #### [facility] [address] [place] [address] Dr. Jag Del Real %0.2 %Normal0.0-0.5The [facility] Hospitalment on above: Performed By: #### CBC #### [facility] [address] [place] [address] Dr. Jag CastleH #1.7 103/ulNormal1.2-3.8The [facility] HospitalComment on above:Performed By: #### CBC #### [facility] [address] [place] [address] Dr. Jag Griffinmphocytes/100 WBC (Bld)35.4 %Slmggc64.5-60.0The [facility] HospitalComment on above:Performed By: #### CBC #### [facility] [address] [place] [address] Dr. Jag Cummings DIFF REQNONormalThe [facility] HospitalComment on above: Performed By: #### CBC #### [facility] [address] [place] [address] Dr. Jag Lujan (RBC) [Entitic mass]29.0 qwDljwah01.7-34.0The [facility] HospitalComment on above:Performed By: #### CBC #### [facility] [address] [place] [address] Dr. Jag Lujan (RBC) [Mass/Vol]29.8 g/dLCritically low29.9-35.2The [facility] HospitalComment on above:Performed By: #### CBC #### [facility] [address] [place] [address] Dr. Jag Hu (RBC) [Entitic vol]97.3 gFTrkvud18.0-99.0The [facility] HospitalComment on above:Performed By: #### CBC #### [facility] [address] [place] [address] Dr. Jag Meléndez #0.3 103/ulNormal0.3-0.8The [facility] HospitalComment on above:Performed By: #### CBC #### [facility] [address] [place] [address] Dr. aJg Ayonocytes/100 WBC (Bld)6.8 %Normal1.7-12.0The [facility] Comment on above:Performed By: #### CBC #### [facility] [address] [place] [address] #2.6 103/ulNormal1.4-6.5The [facility] HospitalComment on above:Performed By: #### CBC #### [facility] [address] [place] [address] Dr. Jag Trejoutrophils/100 WBC (Bld)53.3 %Ifzkry29.0-75.0The [facility] HospitalComment on above:Performed By: #### CBC #### [facility] [address] [place] [address] Dr. Jag Cárdenas mean volume (Bld) [Entitic vol]11.0 fLNormal9.5-13.5The [facility] HospitalComment on above:Performed By: #### CBC #### [facility] [address] [place] [address] Dr. Jag GonzalezT230 103/vlXzexmc702-327Lnw [facility] HospitalComment on above: Performed By: #### CBC #### [facility] [address] [place] [address] Dr. Jag WaldropRBC3.66 106/ulCritically low4.20-5.40The [facility] HospitalComment on above:Performed By: #### CBC #### [facility] [address] [place] [address] Dr. Jag WaldropWBC4.8 103/ulNormal4.0-11.0The [facility] HospitalComascension [place] on above: Performed By: #### CBC #### [facility] [address] [place] [address] Dr. Jag WaldropFERRITINmagnolia [id number] [Mass/Vol]35.0 ng/mLNormal8.0-252.[address] [facility] HospitalComascension [place] on above:Performed By: #### LIPID, BMP #### [facility] [address] [place] [address] Dr. Jag Mayfield [id number] [Mass/Vol]71.0 ug/pMIqoywn00.0-170.0The [facility] HospitalComascension [place] on above:Performed By: #### LIPID, BMP #### [facility] [address] [place] [address] Dr. Jag WaldropLIPID PROFILEon [id number] RATIO NORMSEE [facility] HospitalComment on above:Result Comment: 3.3 - 4.4 LOW RISK 4.4 - 7.1 AVERAGE RISK 7.1 - 11.0 MODERATE RISK >11.0 HIGH RISKPerformed By: #### LIPID, BMP #### [facility] [address] [place] [address] Dr. Jag WaldropCholesterol [Mass/Vol]133 mg/dLNormal<=200[facility] Comment on above:Performed By: #### LIPID, BMP #### [facility] [address] [place] [address] Dr. Jag WaldropCholesterol in HDL [Mass/Vol]41 mg/hTUhkgmw31-50KgpKindred Hospital DaytonComment on above:Performed By: #### LIPID, BMP #### [facility] [address] [place] [address] Dr. Jag WaldropCholesterol in LDL [Mass/Vol]70.8 mg/dLChillicothe HospitalComment on above:Performed By: #### LIPID, BMP #### [facility] [address] [place] [address] Dr. Jag Brownleeestersoham.total/Cholesterol in HDL [Mass ratio]3.2 {ratio} NormalKindred Hospital DaytonComment on above:Performed By: #### LIPID, BMP #### [facility] [address] [place] [address] Dr. Jag Banuelos NORMAL> or = 60 mg/dl - LOW CARDIOVASCULAR RISK <40 mg/dl - HIGH CARDIOVASCULAR RISKChillicothe HospitalComment on above:Performed By: #### LIPID, BMP #### [facility] [address] [place] [address] Dr. Jag WaldropLDL CALC NORMALSEE BELOWNoWVUMedicine Harrison Community HospitalComment on above:Result Comment: <100 mg/dl OPTIMAL 100 - 129 mg/dl NEAR OR ABOVE OPTIMAL 130 - 159 mg/dl BORDERLINE HIGH 160 - 189 mg/dl HIGH >190 mg/dl VERY HIGH Performed By: #### LIPID, BMP #### [facility] [address] [place] [address] Dr. Jag WaldropTriglyceride [Mass/Vol]106 mg/dLNormal<=150[facility] [place] Comment on above:Performed By: #### LIPID, BMP #### [facility] [address] [address] [address] Jag WaldropVLDL CALC21.2 mg/dLNormalThe [facility] HospitalComment on above: Performed By: #### LIPID, BMP #### [facility] [address] [address] [address] Jag WaldropPROF CHEM 8 (BAS METB)on 75-40-4020Nluzi gap [Moles/Vol]18.2 mmol/LNormalThe Sun City HospitalComment on above:Performed By: #### LIPID, BMP #### [facility] [address] [place] [address] Dr. Jag WaldropCalcium [Mass/Vol]9.3 mg/dLNormal8.5-10.1[facility] Comment on above:Performed By: #### LIPID, BMP #### [facility] [address] [place] [address] Dr. Jag WaldropChloride [Moles/Vol]111 mmol/LCritically adyn16-031Rni [facility] HospitalComment on above:Performed By: #### LIPID, BMP #### [facility] [address] [place] [address] Dr. Jag WaldropCO2 [Moles/Vol]19.9 mmol/LCritically low21.0-32.0The [facility] HospitalComment on above:Performed By: #### LIPID, BMP #### [facility] [address] [place] [address] Dr. Jag WaldropCreatinine [Mass/Vol]1.27 mg/dLCritically high0.55-1.02The [facility] HospitalComment on above:Performed By: #### LIPID, BMP #### [facility] [address] [place] [address] Dr. Jag HartGFR-AF TQEMZOQQ33 mL/min/1.69r2Tthpjdolzw low>=60The [facility] HospitalComment on above:Performed By: #### LIPID, BMP #### [facility] [address] [place] [address] Dr. Yilan ChangEGFR-NON AF WQGNGEJJ12 mL/min/1.78p2Tzlkyzdotz low>=60The [facility] HospitalComment on above:Performed By: #### LIPID, BMP #### [facility] [address] [place] [address] Dr. Jag WaldropGlucose [Mass/Vol]129 mg/dLCritically qnxp75-370Bxa [facility] HospitalComment on above:Performed By: #### LIPID, BMP #### [facility] [address] [place] [address] Dr. Jag WaldropPotassium [Moles/Vol]6.1 mmol/LCritically high3.5-5.1The [facility] HospitalComment on above:Performed By: #### LIPID, BMP #### [facility] [address] [place] [address] Dr. Jag WaldropSodium [Moles/Vol]142 mmol/BTffstb059-237Jtb [facility] Comment on above:Performed By: #### LIPID, BMP #### [facility] [address] [place] [address] Dr. Jag WaldropUrea nitrogen [Mass/Vol]35.0 mg/dLCritically high7.0-18.0The [facility] HospitalComment on above:Performed By: #### LIPID, BMP #### [facility] [address] [place] [address] Dr. Jag Roche nitrogen/Creatinine [Mass ratio]27.6 mg/mgNormalThe [facility] HospitalComment on above:Performed By: #### LIPID, BMP #### [facility] [address] [place] [address] Dr. Jag WaldropVITAMIN B12on 58-45-8326Zodycgwxy (Vitamin B12) [Mass/Vol]267.0 pg/eKDbwbsa270.0-986.0The [facility] HospitalComment on above:Performed By: #### LIPID, BMP #### [facility] [address] [place] [address] Dr. Jag WaldropXR CSPINE 2_3 VIEWSon 38-74-9280QK CSPINE 2_3 VIEWSEXAMINATION: XR CSPINE 2_3 VIEWS [...] Electronically authenticated by: KATHY LOBATO Date: 2022-01-12 09:39Chillicothe HospitalBNPon 77-80-5773Bageqvrhmbl peptide B (Bld) [Mass/Vol]283.0 pg/mLNormal<=900.0Kindred Hospital DaytonComment on above:Performed By: #### POCGLUC #### [facility] [address] [place] [address] Dr. Jag Burris AUTO DIFFon 10-93-5056DXNK #0.1 103/ulNormal0.0-0.1Kindred Hospital DaytonComment on above:Performed By: #### LIPID, BMP #### [facility] [address] [place] [address] Dr. Jag Schulzsophils/100 WBC (Bld)0.8 %Normal0.2-2.0[facility] Comment on above:Performed By: #### LIPID, BMP #### [facility] [address] [place] [address] Dr. Jag Aguero #0.3 103/ulNormal0.0-0.7The [facility] HospitalComment on above: Performed By: #### LIPID, BMP #### [facility] [address] [place] [address] Dr. Jag Hartosinophils/100 WBC (Bld)3.8 %Normal0.9-7.0[facility] Comment on above:Performed By: #### LIPID, BMP #### [facility] [address] [place] [address] Dr. Jag Hartrythrocyte distribution width (RBC) [Ratio]13.2 %Yepcmg00.0-15.[address] [facility] HospitalComment on above:Performed By: #### LIPID, BMP #### [facility] [address] [place] [address] Dr. Jag WaldropHematocrit (Bld) [Volume fraction]34.8 %Critically low36.0-48.[address] [facility] HospitalComment on above:Performed By: #### LIPID, BMP #### [facility] [address] [place] [address] Dr. Jag WaldropHemoglobin (Bld) [Mass/Vol]10.6 g/dLCritically low12.0-16.0The [facility] HospitalComment on above:Performed By: #### LIPID, BMP #### [facility] [address] [place] [address] Dr. Jag Del Real #0.02 10e3/ulNormal0.00-0.03The [facility] HospitalComment on above:Performed By: #### LIPID, BMP #### [facility] [address] [place] [address] Dr. Jag Del Real %0.3 %Normal0.0-0.5The [facility] HospitalComment on above: Performed By: #### LIPID, BMP #### [facility] [address] [place] [address] Dr. Jag Boo #1.7 103/ulNormal1.2-3.8The [facility] HospitalComment on above:Performed By: #### LIPID, BMP #### [facility] [address] [place] [address] Dr. Jag Griffinmphocytes/100 WBC (Bld)23.8 %Uoaxlp81.5-60.0The [facility] HospitalComment on above:Performed By: #### LIPID, BMP #### [facility] [address] [place] [address] Dr. Jag CaputoUAL DIFF REQNONormalThe [facility] HospitalComment on above: Performed By: #### LIPID, BMP #### [facility] [address] [place] [address] Dr. Jag Lujan (RBC) [Entitic mass]29.1 asYhvryo76.7-34.0The [facility] City HospitalComment on above:Performed By: #### LIPID, BMP #### [facility] [address] [place] [address] Dr. Jag Lujan (RBC) [Mass/Vol]30.5 g/pRQuhegl01.9-35.2The [facility] HospitalComment on above:Performed By: #### LIPID, BMP #### [facility] [address] [place] [address] Dr. Jag Lujan (RBC) [Entitic vol]95.6 gCJgeqgx53.0-99.0The [facility] HospitalComment on above:Performed By: #### LIPID, BMP #### [facility] [address] [place] [address] Dr. Jag Meléndez #0.7 103/ulNormal0.3-0.8The [facility] HospitalComment on above:Performed By: #### LIPID, BMP #### [facility] [address] [place] [address] Dr. Jag Ayonocytes/100 WBC (Bld)9.3 %Normal1.7-12.0The [facility] Comment on above:Performed By: #### LIPID, BMP #### [facility] [address] [place] [address] #4.4 103/ulNormal1.4-6.5The [facility] HospitalComment on above:Performed By: #### LIPID, BMP #### [facility] [address] [place] [address] Dr. Jag Trejoutrophils/100 WBC (Bld)62.0 %Fvymav43.0-75.0The [facility] HospitalComment on above:Performed By: #### LIPID, BMP #### [facility] [address] [place] [address] Dr. Jag Cooneylet mean volume (Bld) [Entitic vol]11.5 fLNormal9.5-13.5The [facility] HospitalComment on above:Performed By: #### LIPID, BMP #### [facility] [address] [place] [address] Dr. Jag WaldropPLT235 103/azTibwsw021-089Ylh [facility] HospitalComment on above: Performed By: #### LIPID, BMP #### [facility] [address] [place] [address] Dr. Jag EspinoC3.64 106/ulCritically low4.20-5.40The [facility] HospitalComment on above:Performed By: #### LIPID, BMP #### [facility] [address] [place] [address] Dr. Jag WaldropWBC7.1 103/ulNormal4.0-11.0The [facility] HospitalComment on above: Performed By: #### LIPID, BMP #### [facility] [address] [place] [address] Dr. Jag Bass 83-55-4188PNP2.1 mg/dLCritically high<=1.0The [facility] HospitalComment on above:Performed By: #### BMP #### [facility] [address] [place] [address] Dr. Jag WaldropCovid-19 PCR ([facility]VDWE[facility])on 74-31-4442EEVP-CoV-2 (COVID-19) RNA PRINCE+probe Ql (Unsp spec)Not detectedNormalNOT DETECTEDThe [facility] Comment on above:Result Comment: This test is not yet approved or cleared by the [place] FDA. When there are no FDA-approved or cleared tests available, and other criteria are met, FDA can make tests available under an emergency access mechanism called an Emergency Use Authorization (EUA). The EUA for this test is supported by the [employer] of Health and Human Service's (HHS's) declaration [...] with SARS-CoV-2.Performed By: #### LIPID, BMP #### [facility] [address] [place] [address] Dr. Jag WaldropPROF CHEM 8 (BAS METB)on 70-52-9028Ttoch gap [Moles/Vol]13.3 mmol/LNormalThe [facility] HospitalComment on above:Performed By: #### BMP #### [facility] [address] [place] [address] Dr. Jag WaldropCalcium [Mass/Vol]8.7 mg/dLNormal8.5-10.1[facility] Comment on above:Performed By: #### BMP #### [facility] [address] [place] [address] Dr. Jag WaldropChloride [Moles/Vol]107 mmol/ISipvcr67-353RdzKindred Hospital Dayton Comment on above:Performed By: #### BMP #### [facility] [address] [place] [address] Dr. Jag WaldropCO2 [Moles/Vol]23.2 mmol/UFsbqnn03.0-32.0[facility] Comment on above:Performed By: #### BMP #### [facility] [address] [place] [address] Dr. Jag WaldropCreatinine [Mass/Vol]1.55 mg/dLCritically high0.55-1.02The [facility] HospitalComment on above:Performed By: #### BMP #### [facility] [address] [place] [address] Dr. Jag HartGFR-AF DWMCYLOL65 mL/min/1.49h2Vmcvrzeiay low>=60The [facility] HospitalComment on above:Performed By: #### BMP #### [facility] [address] [place] [address] Dr. Yilan ChangEGFR-NON AF UXIVULTR85 mL/min/1.71k7Pdwbkvgvib low>=60The [facility] HospitalComment on above:Performed By: #### BMP #### [facility] [address] [address] [address] Jag WaldropGlucose [Mass/Vol]123 mg/dLCritically dngy29-264Qsy [facility] HospitalComment on above:Performed By: #### BMP #### [facility] [address] [address] [address] Jag WaldropPotassium [Moles/Vol]4.5 mmol/LNormal3.5-5.1[facility] Comment on above:Performed By: #### BMP #### [facility] [address] [place] [address] Dr. Jag WaldropSodium [Moles/Vol]139 mmol/DAytyem616-677Jiw [facility] Comment on above:Performed By: #### BMP #### [facility] [address] [address] [address] Jag WaldropUrea nitrogen [Mass/Vol]36.0 mg/dLCritically high7.0-18.0The [facility] HospitalComment on above:Performed By: #### BMP #### [facility] [address] [place] [address] Dr. Jag Roche nitrogen/Creatinine [Mass ratio]23.2 mg/mgNormalThe [facility] HospitalComment on above:Performed By: #### BMP #### [facility] [address] [place] [address] Dr. Jag Bangura RATE WESTERGRENon 28-71-6973XOF RATE26 mm/hrNormal<=30The [facility] HospitalComment on above:Performed By: #### SEDR #### [facility] [address] [place] [address] Dr. Jag WaldropXR CHEST 2 Von [id number] CHEST 2 VEXAMINATION: XR CHEST 2 V HISTORY: Dyspnea COMPARISON: 04/23/2021 TECHNIQUE: PA and lateral FINDINGS: LUNGS: No significant pulmonary parenchymal abnormalities. VASCULATURE: No increased pulmonary vasculature. PLEURA: No pneumothorax, effusion, or pleural thickening. CARDIAC: Moderate stable cardiomegaly. MEDIASTINUM: No visible mass or adenopathy. BONES: No fracture or visible bone lesion. OTHER: Negative. IMPRESSION: Stable cardiomegaly, clear lungs Electronically authenticated by: ALEX WEISS Date: 2021-12-21 18:35NoWVUMedicine Harrison Community HospitalOVA AND PARASITE EXAMINATIONon [id number] + Parasite Exam Final reportNoWVUMedicine Harrison Community HospitalComment on above:Result Comment: These results were obtained using wet preparation(s) and trichrome stained smear. This test does not include testing for Cryptosporidium parvum, Cyclospora, or Microsporidia.Performed By: #### LIPID, BMP #### [facility] [address] [place] [address] Dr. Jag Klein 1CMercy Health Clermont HospitalComment on above:Result Comment: No ova, cysts, or parasites seen. . One negative specimen does not rule out the possibility of a parasitic infection.Performed By: #### LIPID, BMP #### [facility] [address] [place] [address] Dr. Jag Aranda CULTUREon [id number] CultureFinal reportNoCleveland Clinic Fairview HospitalComascension [place] on above:Performed By: #### CXSTOOL #### [facility] [address] [place] [address] Dr. Jag booth Shiga Toxin EIANegativeNormalNegativeKindred Hospital Dayton Comment on above:Performed By: #### CXSTOOL #### [facility] [address] [place] [address] Dr. Jag Klein 1CMercy Health Clermont HospitalComment on above:Result Comment: No Salmonella or Shigella recovered.Performed By: #### CXSTOOL #### [facility] [address] [place] [address] Dr. Jag Klein Comment: No Campylobacter species isolated. Salmonella/Shigella ScreenFinal reportNoWVUMedicine Harrison Community HospitalComment on above:Performed By: #### CXSTOOL #### [facility] [address] [place] [address] Dr. Jag Sandoval PANEL (PCR)on [id number] F 40/41Not detectedNormal NOT DETECTEDThe [facility] HospitalComment on above:Performed By: #### ERUR #### [facility] [address] [place] [address] Dr. Jag WaldropAstrovirusNot detectedNormalNOT DETECTEDThe [facility] Comment on above:Performed By: #### ERUR #### [facility] [address] [place] [address] Dr. Jag Handley. Diff toxin A/BDetectedCritically abnormalNOT DETECTEDThe [facility] HospitalComment on above:Performed By: #### ERUR #### [facility] [address] [place] [address] Dr. Jag TorrespylobacterNot detectedNormalNOT DETECTEDThe [facility] Comment on above:Performed By: #### ERUR #### [facility] [address] [place] [address] Dr. Jag PollockyptosporidiumNot detectedNormalNOT DETECTEDThe [facility] HospitalComment on above:Performed By: #### ERUR #### [facility] [address] [place] [address] Dr. Jag Meeks. CayetanensisNot detectedNormalNOT DETECTEDThe [facility] HospitalComment on above:Performed By: #### ERUR #### [facility] [address] [place] [address] Dr. Jag Hart. Coli M801Vde ApplicableNormalNot ApplicableThe [facility] HospitalComment on above:Performed By: #### ERUR #### [facility] [address] [place] [address] Dr. Jag Matute histolyticaNot detectedNormalNOT DETECTEDThe [facility] Comment on above:Performed By: #### ERUR #### [facility] [address] [place] [address] Dr. Jag HartAECNot detectedNormalNOT DETECTEDThe [facility] HospitalComment on above:Performed By: #### ERUR #### [facility] [address] [address] [address] Jag Soni detectedNormalNOT DETECTEDThe [facility] HospitalComment on above:Performed By: #### ERUR #### [facility] [address] [address] [address] Jag HartPECNot detectedNormalNOT DETECTEDThe [facility] HospitalComascension macomb on above:Performed By: #### ERUR #### [facility] [address] [address] [address] Jag HartTEJojo detectedNormalNOT DETECTEDThe [facility] HospitalComment on above:Performed By: #### ERUR #### [facility] [address] [address] [address] Jag Cardona detectedNormalNOT DETECTEDThe [facility] Comment on above:Performed By: #### ERUR #### [facility] [address] [address] [address] Jag Jaquez [facility]oples HospitalComment on above:Performed By: #### ERUR #### [facility] [address] [address] [address] Jag TEJEDA HEADERGI PANEL [facility] Comment on above:Performed By: #### ERUR #### [facility] [address] [place] [address] Dr. Jag Faye ECOLIGI PANEL DIARRHEAGENIC E.COLI / SHIGELLAChillicothe HospitalComment on above:Performed By: #### ERUR #### [facility] [address] [address] [address] Jag Faye INFOKettering Health – Soin Medical CenterComascension [place] on above: Result Comment: EAEC- Enteroaggregative E. Coli EPEC- Enteropathogenic E. Coli ETEC- Enterotoxigenic E. Coli lt/st STEC- Shigella-like toxin-producing E. Coli stx1/stx2 EIEC- Shigella/Enteroinvasive E. ColiPerformed By: #### ERUR #### [facility] [address] [address] [address] Jag Faye PARASITESGI PANEL PARASITESChillicothe Hospital Comment on above:Performed By: #### ERUR #### [facility] [address] [address] [address] Jag SandovalPNLHD VIRUSGI PANEL VIRUSESChillicothe HospitalComment on above:Performed By: #### ERUR #### [facility] [address] [address] [address] Jag WaldropNorovirus GI/GIINot detectedNormalNOT DETECTEDThe [facility] HospitalComment on above:Performed By: #### ERUR #### [facility] [address] [address] [address] Jag Carrera. ShigelloidesNot detectedNormalNOT DETECTEDThe [facility] HospitalComment on above:Performed By: #### ERUR #### [facility] [address] [address] [address] Jag WaldropRotavirus ANot detectedNormalNOT DETECTEDKindred Hospital [facility] Comment on above:Performed By: #### ERUR #### [facility] [address] [address] [address] Jag WaldropSalmonellaNot detectedNormalNOT DETECTEDKindred Hospital [place] Comment on above:Performed By: #### ERUR #### [facility] [address] [address] [address] Jag WaldropSapovirusNot detectedNormalNOT DETECTEDKindred Hospital [place] Comment on above:Performed By: #### ERUR #### [facility] [address] [address] [address] Jag WaldropSTECNot detectedNormalNOT DETECTEDThe [facility] HospitalComment on above:Performed By: #### ERUR #### [facility] [address] [address] [address] Jag WaldropVibrioNot detectedNormalNOT DETECTEDThe [facility] [place] HospitalComment on above:Performed By: #### ERUR #### [facility] [address] [address] [address] Jag De La Cruz CholeraNot detectedNormalNOT DETECTEDThe [facility] Comment on above:Performed By: #### ERUR #### [facility] [address] [place] [address] Dr. Jag Hanna. EnterocoliticaNot detectedNormalNOT DETECTEDThe [facility] HospitalComment on above:Performed By: #### ERUR #### [facility] [address] [place] [address] Dr. Jag Hernandez BLD IMMUNO SCREENon 05-01-2584AJYODG BLOODNegativeNormal NEGATIVEThe [facility] HospitalComment on above:Performed By: #### LIPID, BMP #### [facility] [address] [place] [address] Dr. Jag WaldropPROF CHEM 8 (BAS METB)on [id number] gap [Moles/Vol]15.5 mmol/LNormalThe [facility] HospitalComment on above:Performed By: #### POCGLUC #### [facility] [address] [place] [address] Dr. Jag WaldropCalcium [Mass/Vol]9.1 mg/dLNormal8.5-10.1The [facility] Comment on above:Performed By: #### POCGLUC #### [facility] [address] [place] [address] Dr. Jag WaldropChloride [Moles/Vol]106 mmol/EFucnig76-484Ehb [facility] Comment on above:Performed By: #### POCGLUC #### [facility] [address] [place] [address] Dr. Jag WaldropCO2 [Moles/Vol]25.4 mmol/BRkkqcg70.0-32.0The [facility] Comment on above:Performed By: #### POCGLUC #### [facility] [address] [place] [address] Dr. Jag WaldropCreatinine [Mass/Vol]1.18 mg/dLCritically high0.55-1.02The [facility] HospitalComment on above:Performed By: #### POCGLUC #### [facility] [address] [address] [address] Rm ChangEGFR-AF KUUZEYKV63 mL/min/1.62d2Fskphaxhtr low>=60The [facility] HospitalComment on above:Performed By: #### POCGLUC #### [facility] [address] [address] [address] Rm ChangEGFR-NON AF WKJQGUOC74 mL/min/1.15k7Xoaibenkle low>=60The [facility] HospitalComment on above:Performed By: #### POCGLUC #### [facility] [address] [address] [address] Jag WaldropGlucose [Mass/Vol]141 mg/dLCritically jzid39-383Nux [facility] HospitalComment on above:Performed By: #### POCGLUC #### [facility] [address] [address] [address] Jag WaldropPotassium [Moles/Vol]3.9 mmol/LNormal3.5-5.1The [facility] Comment on above:Performed By: #### POCGLUC #### [facility] [address] [address] [address] Jag WaldropSodium [Moles/Vol]143 mmol/UXtzbji330-882Rnh [facility] Comment on above:Performed By: #### POCGLUC #### [facility] [address] [address] [address] Jag WaldropUrea nitrogen [Mass/Vol]22.0 mg/dLCritically high7.0-18.0The [facility] HospitalComment on above:Performed By: #### POCGLUC #### [facility] [address] [address] [address] Jag WaldropUrea nitrogen/Creatinine [Mass ratio]18.6 mg/mgNormalThe [facility] HospitalComment on above:Performed By: #### POCGLUC #### [facility] [address] [address] [address] Jag WaldropXR KUB 1 VIEWon [id number] KUB 1 VIEWEXAMINATION: XR KUB 1 VIEW [...] No acute abnormality Electronically authenticated by: ALEX WEISS Date: 2021-10-29 09:01NoTrumbull Regional [facility] Center HospitalCULTURE URINEon [id number] URINECulture Observations: LIGHT GROWTH OF MIXED GENITAL SANDEE. NO POTENTIAL PATHOGENS SEEN.NormalThe [facility] HospitalComment on above:Performed By: #### ERUR #### [facility] [address] [place] [address] Dr. Jag WaldropGLYCOHEMOGLOBIN A1Con [id number] RECOMMENDATIONSEE BELOWOur Lady Of Mercy Hospital - AndersonComascension [place] on above:Result Comment: ADA RECOMMENDED LIMIT 4.0 - 6.0 ADA THERAPEUTIC TARGET < 7.0 ACTION SUGGESTED > 7.0Performed By: #### ERUR #### [facility] [address] [place] [address] Dr. Jag WaldropGlucose [Mass/Vol]157 mg/dLChillicothe HospitalComment on above:Performed By: #### ERUR #### [facility] [address] [place] [address] Dr. Jag WaldropHbA1c (Bld) [Mass fraction]7.1 %Critically high4.5-6.2[facility] DaytonComment on above:Performed By: #### ERUR #### [facility] [address] [place] [address] Dr. Jag WaldropLIPID PROFILEon [id number]-HDL RATIO NORMSEE [facility] HospitalComascension [place] on above:Result Comment: 3.3 - 4.4 LOW RISK 4.4 - 7.1 AVERAGE RISK 7.1 - 11.0 MODERATE RISK >11.0 HIGH RISKPerformed By: #### POCGLUC #### [facility] [address] [place] [address] Dr. Jag WaldropCholesterol [Mass/Vol]150 mg/dLNocarolinas continuecare hospital at [facility]<=200[facility] [place] Comment on above:Performed By: #### POCGLUC #### [facility] [address] [address] [address] Jag WaldropCholesterol in HDL [Mass/Vol]39 mg/dLCritically wds74-31RbxKindred Hospital DaytonComment on above:Performed By: #### POCGLUC #### [facility] [address] [address] [address] Jag WaldropCholesterol in LDL [Mass/Vol]82.6 mg/dLChillicothe HospitalComment on above:Performed By: #### POCGLUC #### [facility] [address] [place] [address] Dr. Jag Brownleeestersoham.total/Cholesterol in HDL [Mass ratio]3.8 {ratio} NormalKindred Hospital DaytonComment on above:Performed By: #### POCGLUC #### [facility] [address] [place] [address] Dr. Jag Banuelos NORMAL> or = 60 mg/dl - LOW CARDIOVASCULAR RISK <40 mg/dl - HIGH CARDIOVASCULAR RISKChillicothe HospitalComment on above:Performed By: #### POCGLUC #### [facility] [address] [place] [address] Dr. Jag Herron CALC NORMALSEE BELOWChillicothe HospitalComment on above:Result Comment: <100 mg/dl OPTIMAL 100 - 129 mg/dl NEAR OR ABOVE OPTIMAL 130 - 159 mg/dl BORDERLINE HIGH 160 - 189 mg/dl HIGH >190 mg/dl VERY HIGH Performed By: #### POCGLUC #### [facility] [address] [place] [address] Dr. Jag WaldropTriglyceride [Mass/Vol]142 mg/dLNormal<=150The [facility] Comment on above:Performed By: #### POCGLUC #### [facility] [address] [place] [address] Dr. Jag SaeedLDL CALC28.4 mg/dLNoWVUMedicine Harrison Community HospitalComment on above: Performed By: #### POCGLUC #### [facility] [address] [address] [address] Jag WaldropPROF CHEM 8 (BAS METB)on [id number] gap [Moles/Vol]16.0 mmol/LNormalKindred Hospital DaytonComment on above:Performed By: #### POCGLUC #### [facility] [address] [address] [address] Jag WaldropCalcium [Mass/Vol]8.7 mg/dLNormal8.5-10.1The [facility] Comment on above:Performed By: #### POCGLUC #### [facility] [address] [address] [address] Jag WaldropChloride [Moles/Vol]108 mmol/LCritically jgip37-168Sko [facility] HospitalComment on above:Performed By: #### POCGLUC #### [facility] [address] [address] [address] Jag WaldropCO2 [Moles/Vol]22.1 mmol/IRhyuqw90.0-32.0The [facility] Comment on above:Performed By: #### POCGLUC #### [facility] [address] [address] [address] Jag WaldropCreatinine [Mass/Vol]1.72 mg/dLCritically high0.55-1.02The [facility] HospitalComment on above:Performed By: #### POCGLUC #### [facility] [address] [address] [address] Jag HartGFR-AF GTLVYZJM89 mL/min/1.50q9Zjyqwfxncp low>=60The [facility] HospitalComment on above:Performed By: #### POCGLUC #### [facility] [address] [address] [address] Jag HartGFR-NON AF VNRTPXZZ52 mL/min/1.91g4Eobehopqjr low>=60The [facility] HospitalComment on above:Performed By: #### POCGLUC #### [facility] [address] [address] [address] Jag WaldropGlucose [Mass/Vol]144 mg/dLCritically gpec47-205Xsp [facility] HospitalComment on above:Performed By: #### POCGLUC #### [facility] [address] [address] [address] Jag WaldropPotassium [Moles/Vol]5.1 mmol/LNormal3.5-5.1[facility] Comment on above:Performed By: #### POCGLUC #### [facility] [address] [address] [address] Jag Conraddium [Moles/Vol]141 mmol/WWphhph903-826UrsKindred Hospital Dayton Comment on above:Performed By: #### POCGLUC #### [facility] [address] [address] [address] Jag WaldropUrea nitrogen [Mass/Vol]41.0 mg/dLCritically high7.0-18.0[facility] DaytonComment on above:Performed By: #### POCGLUC #### [facility] [address] [place] [address] Dr. Jag Roche nitrogen/Creatinine [Mass ratio]23.8 mg/mgNoWVUMedicine Harrison Community HospitalComment on above:Performed By: #### POCGLUC #### [facility] [address] [place] [address] Dr. Jag Murillo (CLEAN/CATCH) SOLAR MANUFACTURER'S REPRESENTATIVE/MICRO IF IND.on [id number] Ql (U) NegativeNormalNEGATIVEKindred Hospital DaytonComment on above:Performed By: #### LIPID, BMP #### [facility] [address] [place] [address] Dr. Jag Jack (U)SL CLOUDYAbnormalCLEARThProMedica Defiance Regional HospitalComment on above:Performed By: #### LIPID, BMP #### [facility] [address] [place] [address] Dr. Jag Lemus (U)LT. YELLOWNormalYELLOWKindred Hospital DaytonComment on above:Performed By: #### LIPID, BMP #### [facility] [address] [place] [address] Dr. Jag Rasmussenose Ql (U)NegativeNormalNEGATIVEKindred Hospital DaytonComment on above:Performed By: #### LIPID, BMP #### [facility] [address] [address] [address] Jag WaldropHemoglobin Ql (U)TRACE-INTACTAbnormalNEGATIVEKindred Hospital DaytonComment on above:Performed By: #### LIPID, BMP #### [facility] [address] [address] [address] Jag Reidones Ql (U)NegativeNormalNEGATIVEKettering Health Greene Memorial HospitalComment on above:Performed By: #### LIPID, BMP #### [facility] [address] [address] [address] Jag WaldropLEUKOCYTESSMALLAbnormalNEGATIVEKindred Hospital DaytonComment on above:Performed By: #### LIPID, BMP #### [facility] [address] [place] [address] Dr. Jag Pollacktrite Ql (U)NegativeNormalNEGATIVEKindred Hospital DaytonComment on above:Performed By: #### LIPID, BMP #### [facility] [address] [address] [address] Jag WaldroppH (U)5.5 [pH]Normal5-9[facility] DaytonComment on above: Performed By: #### LIPID, BMP #### [facility] [address] [address] [address] Jag WaldropSPEC GRAVITY1.888Dzhlja7.005-<=1.025The [facility] HospitalComment on above:Performed By: #### LIPID, BMP #### [facility] [address] [address] [address] Jag Murillo PROTEINNegativeNormalNEGATIVE/ TRACEThe [facility] on above:Performed By: #### LIPID, BMP #### [facility] [address] [place] [address] Dr. aJg Mathis MICRO INDINDICATEDNoalThProMedica Defiance Regional HospitalComment on above: Performed By: #### LIPID, BMP #### [facility] [address] [address] [address] Jag He Qn (U)0.2 {Chris'U}/dLNormal0.2 - 1.0The [facility] Hospitalment on above:Performed By: #### LIPID, BMP #### [facility] [address] [address] [address] Jag Baez MICROSCOPIC ONLYon [id number]A SEEN [facility] DaytonComascension [place] on above:Performed By: #### LIPID, BMP #### [facility] [address] [place] [address] Dr. Jag Cardona identified Cx Nom (U)INDICATEDNoalThProMedica Defiance Regional HospitalComascension [place] on above:Performed By: #### LIPID, BMP #### [facility] [address] [place] [address] Dr. Jag Adkins SEENNormalNONE SEENSelect [facility] on above:Performed By: #### LIPID, BMP #### [facility] [address] [place] [address] Dr. Jag Weathers LM Nom (Urine sed)NONE SEENNormalNONE SEENSelect Medical Specialty [facility] on above:Performed By: #### LIPID, BMP #### [facility] [address] [place] [address] Dr. Jag Fowlerthelial cells LM Ql (Urine sed)RARENormalNONE SEEN /RAREThe [facility] HospitalComascension [place] on above:Performed By: #### LIPID, BMP #### [facility] [address] [place] [address] Dr. Jag SotoACEAbnormalNONE SEENSelect Medical Specialty [facility] on above:Performed By: #### LIPID, BMP #### [facility] [address] [place] [address] Dr. Jag DupreeIvswgJGU7-9Pjcmpm3-4Bpc [facility] on above:Performed By: #### LIPID, BMP #### [facility] [address] [place] [address] Dr. Jag GuadalupeBC2-5AbnormalNONE SEENThe [facility] HospitalComment on above: Performed By: #### LIPID, BMP #### [facility] [address] [place] [address] Dr. Jag Cardoso [id number] peptide B (Bld) [Mass/Vol]52.0 pg/mL Normal<=900.0The [facility] HospitalComment on above:Performed By: #### LIPID, BMP #### [facility] [address] [place] [address] Dr. Jag Burris AUTO DIFFon [id number] #0.1 103/ulNormal0.0-0.1The [facility] HospitalComment on above:Performed By: #### POCGLUC #### [facility] [address] [place] [address] Dr. Jag WaldropBasophils/100 WBC (Bld)0.8 %Normal0.2-2.0[facility] Comment on above:Performed By: #### POCGLUC #### [facility] [address] [place] [address] Dr. Jag Aguero #0.2 103/ulNormal0.0-0.7The [facility] HospitalComment on above: Performed By: #### POCGLUC #### [facility] [address] [place] [address] Dr. Jag Hartosinophils/100 WBC (Bld)3.0 %Normal0.9-7.0The [facility] Comment on above:Performed By: #### POCGLUC #### [facility] [address] [place] [address] Dr. Jag Hartrythrocyte distribution width (RBC) [Ratio]14.2 %Gxvvnf70.0-15.[address] [facility] HospitalComment on above:Performed By: #### POCGLUC #### [facility] [address] [place] [address] Dr. Jag WaldropHematocrit (Bld) [Volume fraction]35.9 %Critically low36.0-48.[address] [facility] HospitalComment on above:Performed By: #### POCGLUC #### [facility] [address] [address] [address] Jag WaldropHemoglobin (Bld) [Mass/Vol]11.0 g/dLCritically low12.0-16.0The [facility] HospitalComment on above:Performed By: #### POCGLUC #### [facility] [address] [place] [address] Dr. Jag Del Real #0.03 10e3/ulNormal0.00-0.03The [facility] HospitalComment on above:Performed By: #### POCGLUC #### [facility] [address] [place] [address] Dr. Jag Del Real %0.4 %Normal0.0-0.5The [facility] HospitalComment on above: Performed By: #### POCGLUC #### [facility] [address] [place] [address] Dr. Jag Boo #2.8 103/ulNormal1.2-3.8The [facility] HospitalComment on above:Performed By: #### POCGLUC #### [facility] [address] [place] [address] Dr. Jag Castlehocytes/100 WBC (Bld)37.9 %Lczhvk59.5-60.0The [facility] HospitalComment on above:Performed By: #### POCGLUC #### [facility] [address] [place] [address] Dr. Jag CaputoUAL DIFF REQNONormalThe [facility] HospitalComment on above: Performed By: #### POCGLUC #### [facility] [address] [place] [address] Dr. Jag Lujan (RBC) [Entitic mass]28.7 dzQmwbry15.7-34.0The [facility] HospitalComment on above:Performed By: #### POCGLUC #### [facility] [address] [place] [address] Dr. Jag Lujan (RBC) [Mass/Vol]30.6 g/mZJrgozf53.9-35.2The [facility] HospitalComment on above:Performed By: #### POCGLUC #### [facility] [address] [place] [address] Dr. Jag Hu (RBC) [Entitic vol]93.7 qIWaewqi65.0-99.0The [facility] HospitalComment on above:Performed By: #### POCGLUC #### [facility] [address] [place] [address] Dr. Jag Meléndez #0.5 103/ulNormal0.3-0.8The [facility] HospitalComment on above:Performed By: #### POCGLUC #### [facility] [address] [place] [address] Dr. Jag Ayonocytes/100 WBC (Bld)7.4 %Normal1.7-12.0The [facility] Comment on above:Performed By: #### POCGLUC #### [facility] [address] [place] [address] #3.7 103/ulNormal1.4-6.5The [facility] HospitalComment on above:Performed By: #### POCGLUC #### [facility] [address] [place] [address] Dr. Jag Trejoutrophils/100 WBC (Bld)50.5 %Hthlbq93.0-75.0The [facility] HospitalComment on above:Performed By: #### POCGLUC #### [facility] [address] [place] [address] Dr. Jag Cooneylet mean volume (Bld) [Entitic vol]10.2 fLNormal9.5-13.5The [facility] HospitalComment on above:Performed By: #### POCGLUC #### [facility] [address] [place] [address] Dr. Jag WaldropPLT261 103/ytUfhctv489-242Yyj [facility] HospitalComment on above: Performed By: #### POCGLUC #### [facility] [address] [place] [address] Dr. Jag WaldropRBC3.83 106/ulCritically low4.20-5.40[facility] DaytonComment on above:Performed By: #### POCGLUC #### [facility] [address] [address] [address] Jag WaldropWBC7.3 103/ulNormal4.0-11.0[facility] DaytonComment on above: Performed By: #### POCGLUC #### [facility] [address] [address] [address] Jag WaldropEMORY [facility] GLUCOSEon 81-03-6946Dkvuzwu [Mass/Vol]156 mg/dL Critically zckv41-971Vkk [facility] HospitalComment on above:Performed By: #### POCGLUC #### [facility] [address] [place] [address] Dr. Jag WaldropGlucose [Mass/Vol]304 mg/dLCritically kzgo35-534Gwm [facility] HospitalComment on above:Performed By: #### POCGLUC #### [facility] [address] [place] [address] Dr. Jag WaldropGlucose [Mass/Vol]77 mg/kQDbgheu33-958PxuKindred Hospital Dayton Comment on above:Performed By: #### ERUR #### [facility] [address] [place] [address] Dr. Jag WaldropGlucose [Mass/Vol]136 mg/dLCritically bdkc25-701RasKindred Hospital DaytonComment on above:Performed By: #### ERUR #### [facility] [address] [place] [address] Dr. Jag WaldropGlucose [Mass/Vol]73 mg/dLCritically afr32-258KvaKindred Hospital DaytonComment on above:Performed By: #### ERUR #### [facility] [address] [place] [address] Dr. Jag WaldropPROElzbieta CHEM 8 (BAS METB)on 21-52-0869Giubl gap [Moles/Vol]15.5 mmol/LNormalKindred Hospital DaytonComment on above:Performed By: #### POCGLUC #### [facility] [address] [place] [address] Dr. Yilan ChangCalcium [Mass/Vol]8.3 mg/dLCritically low8.5-10.1The [facility] HospitalComment on above:Performed By: #### POCGLUC #### [facility] [address] [place] [address] Dr. Jag WaldropChloride [Moles/Vol]108 mmol/LCritically fugm05-498Wok [facility] HospitalComment on above:Performed By: #### POCGLUC #### [facility] [address] [place] [address] Dr. Jag WaldropCO2 [Moles/Vol]18.9 mmol/LCritically low21.0-32.0The [facility] HospitalComment on above:Performed By: #### POCGLUC #### [facility] [address] [place] [address] Dr. Jag WaldropCreatinine [Mass/Vol]1.43 mg/dLCritically high0.55-1.02The [facility] HospitalComment on above:Performed By: #### POCGLUC #### [facility] [address] [place] [address] Dr. Rm ChangEGFR-AF SDIZPIML88 mL/min/1.86k7Boyufgvsil low>=60The [facility] HospitalComascension [place] on above:Performed By: #### POCGLUC #### [facility] [facility] [address] [place] [address] Dr. Jag HartGFR-NON AF [id number] mL/min/1.79q1Vljhvttuxy low>=60The [facility] HospitalComment on above:Performed By: #### POCGLUC #### [facility] [address] [place] [address] Dr. Jag WaldropGlucose [Mass/Vol]269 mg/dLCritically wzbs04-242Wpg [facility] HospitalComment on above:Performed By: #### POCGLUC #### [facility] [address] [place] [address] Dr. Jag WaldropPotassium [Moles/Vol]5.4 mmol/LCritically high3.5-5.1The [facility] HospitalComment on above:Performed By: #### POCGLUC #### [facility] [address] [address] [address] Jag WaldropSodium [Moles/Vol]137 mmol/WLfqaqi912-572Umt [facility] Comment on above:Performed By: #### POCGLUC #### [facility] [address] [address] [address] Jag WaldropUrea nitrogen [Mass/Vol]40.0 mg/dLCritically high7.0-18.0[facility] DaytonComment on above:Performed By: #### POCGLUC #### [facility] [address] [address] [address] Jag Roche nitrogen/Creatinine [Mass ratio]28.0 mg/mgNoalThProMedica Defiance Regional HospitalComment on above:Performed By: #### POCGLUC #### [facility] [address] [address] [address] Jag WaldropAnion gap [Moles/Vol]14.0 mmol/LNormalKindred Hospital Dayton Comment on above:Performed By: #### ERUR #### [facility] [address] [address] [address] Jag WaldropCalcium [Mass/Vol]8.9 mg/dLNormal8.5-10.1The [facility] Comment on above:Performed By: #### ERUR #### [facility] [address] [address] [address] Jag WaldropChloride [Moles/Vol]110 mmol/LCritically ecta37-205VmeKindred Hospital DaytonComment on above:Performed By: #### ERUR #### [facility] [address] [address] [address] Jag WaldropCO2 [Moles/Vol]21.1 mmol/CVwqviy36.0-32.0The [facility] Comment on above:Performed By: #### ERUR #### [facility] [address] [address] [address] Jag WaldropCreatinine [Mass/Vol]1.32 mg/dLCritically high0.55-1.02The [facility] HospitalComment on above:Performed By: #### ERUR #### [facility] [address] [address] [address] Jag HartGFR-AF MGLDOJUE04 mL/min/1.83m9Hrepxcnxnc low>=60The [facility] HospitalComment on above:Performed By: #### ERUR #### [facility] [address] [address] [address] Jag HartGFR-NON AF QOPBTWXJ86 mL/min/1.34g7Uzovyycasx low>=60The [facility] HospitalComment on above:Performed By: #### ERUR #### [facility] [address] [address] [address] Jag WaldropGlucose [Mass/Vol]79 mg/mBQijekf10-570ZruKindred Hospital Dayton Comment on above:Performed By: #### ERUR #### [facility] [address] [place] [address] Dr. Jag WaldropPotassium [Moles/Vol]6.1 mmol/LCritically high3.5-5.1[facility] DaytonComascension macomb on above:Result Comment: Test Repeated. Critical Value Verified Performed By: #### ERUR #### [facility] [address] [place] [address] Dr. Jag WaldropSodium [Moles/Vol]140 mmol/IGvyrvw977-628ImnKindred Hospital Dayton Comment on above:Performed By: #### ERUR #### [facility] [address] [address] [address] Jag WaldropUrea nitrogen [Mass/Vol]45.0 mg/dLCritically high7.0-18.0The [facility] Hospitalment on above:Performed By: #### ERUR #### [facility] [address] [address] [address] Jag WaldropUrea nitrogen/Creatinine [Mass ratio]34.1 mg/mgNormalThe [facility] HospitalComascension macomb on above:Performed By: #### ERUR #### [facility] [address] [address] [address] Jag RameyC METABOLIC PANELon 11-25-3402Mugleqr [Mass/Vol]8.9 mg/dL Normal8.6-10.3The [facility] HospitalComment on above:Order Comment: No: Do not add to previous drawPerformed By: #### 39262, 85224 #### [facility] [address] [place] [address], USAChloride [Moles/Vol]105 mmol/MQfrook55-816Uop [facility] HospitalComment on above:Order Comment: No: Do not add to previous drawPerformed By: #### 07056, 50820 #### [facility] [address] [place] [address], USACO2 [Moles/Vol]26 mmol/OFuxbaj67-74Dqn [facility] HospitalComment on above:Order Comment: No: Do not add to previous draw Performed By: #### 25640, 83499 #### [facility] [address] [place] [address], USACreatinine [Mass/Vol]0.99 mg/dLNormal0.60-1.20The [facility] HospitalComment on above:Order Comment: No: Do not add to previous drawPerformed By: #### 67761, 03166 #### [facility] [address] [place] [address], USAGFR/1.73 sq M predicted among blacks MDRD (S/P/Bld) [Vol rate/Area]mL/min/{1.73_m2}Normal>60The [facility] Comment on above:Order Comment: No: Do not add to previous drawPerformed By: #### 59664, 54514 #### [facility] [address] [place] [address], USAGFR/1.73 sq M predicted among non-blacks MDRD (S/P/Bld) [Vol rate/Area]mL/min/{1.73_m2}Normal>60The [facility] Comment on above:Order Comment: No: Do not add to previous drawPerformed By: #### 86828, 46901 #### [facility] [address] [place] [address], USAGlucose [Mass/Vol]145 mg/nNFyhn62-045Hyh [facility] HospitalComment on above:Order Comment: No: Do not add to previous drawPerformed By: #### 71485, 55536 #### [facility] [address] [place] [address], USAPotassium [Moles/Vol]3.7 mmol/LNormal3.5-5.1The [facility] HospitalComment on above:Order Comment: No: Do not add to previous drawPerformed By: #### 45129, 44008 #### [facility] [address] [place] [address], USASodium [Moles/Vol]139 mmol/CWgrrtl665-378Bpk [facility] HospitalComment on above:Order Comment: No: Do not add to previous drawPerformed By: #### 20719, 04499 #### [facility] [address] [place] [address], USAUrea nitrogen [Mass/Vol]26 mg/dLHigh7-25The [facility] HospitalComment on above:Order Comment: No: Do not add to previous drawPerformed By: #### 83200, 49425 #### [facility] [address] [facility] [place] [address], [facility] [[email or web address]]CBC W/DIFFon [id number] BASOPHILS0.0 10*3/uLNormal 0.0-0.2The [facility] HospitalComment on above:Order Comment: No: Do not add to previous drawPerformed By: #### 70331, 17528 #### [facility] [address] [place] [address], USAABS IMM GRANS0.0 10*3/uLNormal0.0-0.2The [facility] HospitalComment on above:Order Comment: No: Do not add to previous drawPerformed By: #### 88473, 20045 #### [facility] [address] [place] [address], USAABS NEUTROPHILS2.3 10*3/uLNormal1.6-7.6The [facility] HospitalComment on above:Order Comment: No: Do not add to previous drawPerformed By: #### 97046, 83495 #### [facility] [address] [place] [address], USABasophils/100 WBC (Bld)0.3 %Normal0.0-1.0The [facility] HospitalComment on above:Order Comment: No: Do not add to previous drawPerformed By: #### 19682, 70143 #### [facility] [address] [place] [address], USAEosinophils (Bld) [#/Vol]0.0 10*3/uLNormal0.0-0.5The [facility] HospitalComment on above:Order Comment: No: Do not add to previous drawPerformed By: #### 30393, 79306 #### [facility] [address] [place] [address], USAEosinophils/100 WBC (Bld)0.0 %Normal0.0-6.0The [facility] HospitalComment on above:Order Comment: No: Do not add to previous drawPerformed By: #### 65791, 55168 #### [facility] [address] [place] [address], USAErythrocyte distribution width (RBC) [Ratio]13.3 %Normal 11.5-15.0The [facility] HospitalComment on above:Order Comment: No: Do not add to previous drawPerformed By: #### 15154, 83867 #### [facility] [address] [place] [address], USAHematocrit (Bld) [Volume fraction]37.7 %Fibyqw12.0-45.0The [facility] HospitalComment on above:Order Comment: No: Do not add to previous drawPerformed By: #### 84866, 85018 #### [facility] [address] [place] [address], USAHemoglobin (Bld) [Mass/Vol]12.1 g/iKTlgjxw23.0-15.0The [facility] HospitalComment on above:Order Comment: No: Do not add to previous drawPerformed By: #### 26180, 86810 #### [facility] [address] [place] [address], USAIMMATURE GRANS0.2 %Normal0.0-1.0The [facility] HospitalComment on above:Order Comment: No: Do not add to previous draw Performed By: #### 29548, 02474 #### [facility] [address] [place] [address], USALymphocytes (Bld) [#/Vol]3.0 10*3/uLNormal1.2-4.0The [facility] HospitalComment on above:Order Comment: No: Do not add to previous drawPerformed By: #### 66271, 48525 #### [facility] [address] [place] [address], USALymphocytes/100 WBC (Bld)52.0 %High20.0-45.0The [facility] HospitalComment on above:Order Comment: No: Do not add to previous drawPerformed By: #### 02378, 70425 #### [facility] [address] [place] [address], USAMCH (RBC) [Entitic mass]28.7 nrDyteqf31.0-33.0The [facility] HospitalComment on above:Order Comment: No: Do not add to previous drawPerformed By: #### 83010, 38078 #### [facility] [address] [place] [address], [facility] [[email or web address]]MCHC (RBC) [Mass/Vol]32.1 g/vRSafmmx87.0-35.0The [facility] HospitalComment on above:Order Comment: No: Do not add to previous drawPerformed By: #### 19129, 21532 #### [facility] [address] [place] [address], [facility] [[email or web address]]MCV (RBC) [Entitic vol]89.3 pALjfikr57.0-98.0The [facility] HospitalComment on above:Order Comment: No: Do not add to previous drawPerformed By: #### 21542, 74875 #### [facility] [address] [place] [address], USAMonocytes (Bld) [#/Vol]0.5 10*3/uLNormal0.1-1.0The [facility] HospitalComment on above:Order Comment: No: Do not add to previous drawPerformed By: #### 25753, 95923 #### [facility] [address] [place] [address], USAMONOS7.9 %Normal5.0-12.0The [facility] HospitalComment on above:Order Comment: No: Do not add to previous drawPerformed By: #### 73953, 80605 #### [facility] [address] [place] [address], USANeutrophils/100 WBC (Bld)39.6 %Low40.0-72.0The [facility] HospitalComment on above:Order Comment: No: Do not add to previous drawPerformed By: #### 60614, 62055 #### [facility] [address] [place] [address], USANucleated RBC/100 WBC (Bld) [Ratio]0 %Normal0-0The [facility] HospitalComment on above:Order Comment: No: Do not add to previous drawPerformed By: #### 33177, 40156 #### [facility] [address] [place] [address], USAPLAT ESS026 10*3/sOTgaxkg949-731Kgl [facility] HospitalComment on above:Order Comment: No: Do not add to previous draw Performed By: #### 17352, 36060 #### [facility] [address] [place] [address], USARBC (Bld) [#/Vol]4.22 10*6/uLNormal3.80-5.00The [facility] HospitalComment on above:Order Comment: No: Do not add to previous drawPerformed By: #### 69311, 01341 #### [facility] [address] [place] [address], USAWBC (Bld) [#/Vol]5.85 10*3/uLNormal4.00-10.60The [facility] HospitalComment on above:Order Comment: No: Do not add to previous drawPerformed By: #### 31943, 25767 #### [facility] [address] [place] [address], USAPOC GLUCOSE LABon 72-32-8502Koembpk [Mass/Vol]180 mg/dLHigh 70-100The [facility] HospitalComment on above:Performed By: #### 67139, 69789 #### [facility] [address] [place] [address], USAGlucose [Mass/Vol]129 mg/fPMlna95-175Mfs [facility] HospitalComment on above:Performed By: #### 66030, 72784 #### [facility] [address] [place] [address], USAGlucose [Mass/Vol]132 mg/lFTbdy91-869Gwb [facility] HospitalComment on above:Performed By: #### 18077 #### [facility] [address] [place] [address], USAUFH HEPARIN ASSAYon 60-13-9227GKBSZQNOGXYHXS HEPARIN<0.10 Critically low0.30-0.70The [facility] HospitalComment on above: Result Comment: Rivaroxaban and Apixaban will interfere with the anti Xa assay used to monitor UFH and LMWH. RESULTS CHECKED AND CALLED. ACCURATELY READ BACK [place] JANENE [place]IP[place] RN AT [address]554Performed By: #### 93596, 88444 #### [facility] [address] [place] [address], USABASIC METABOLIC PANELon 85-71-9593Iufktml [Mass/Vol]8.5 mg/dLLow8.6-10.3The [facility] HospitalComment on above:Order Comment: No: Do not add to previous drawPerformed By: #### 35680 #### [facility] [address] [place] [address], USAChloride [Moles/Vol]104 mmol/GLodywg86-259Sam [facility] HospitalComment on above:Order Comment: No: Do not add to previous drawPerformed By: #### 70290 #### [facility] [address] [place] [address], USACO2 [Moles/Vol]27 mmol/MAtvvwj94-25Gbp [facility] HospitalComment on above:Order Comment: No: Do not add to previous draw Performed By: #### 99569 #### [facility] [address] [place] [address], USACreatinine [Mass/Vol]1.13 mg/dLNormal0.60-1.20The [facility] HospitalComment on above:Order Comment: No: Do not add to previous drawPerformed By: #### 28694 #### [facility] [address] [place] [address], USAGFR/1.73 sq M predicted among blacks MDRD (S/P/Bld) [Vol rate/Area]mL/min/{1.73_m2}Normal>60The [facility] Comment on above:Order Comment: No: Do not add to previous drawPerformed By: #### 18903 #### [facility] [address] [place] [address], USAGFR/1.73 sq M predicted among non-blacks MDRD (S/P/Bld) [Vol rate/Area]52 ml/min/1.73sq mAbnormal>60The [facility] HospitalComment on above:Order Comment: No: Do not add to previous drawPerformed By: #### 97983 #### [facility] [address] [place] [address], USAGlucose [Mass/Vol]131 mg/pSZxkz39-461Uqt [facility] HospitalComment on above:Order Comment: No: Do not add to previous drawPerformed By: #### 08952 #### [facility] [address] [place] [address], USAPotassium [Moles/Vol]3.9 mmol/LNormal3.5-5.1The [facility] HospitalComment on above:Order Comment: No: Do not add to previous drawPerformed By: #### 44122 #### [facility] [address] [place] [address], USASodium [Moles/Vol]141 mmol/AXfibbj033-742Gab [facility] HospitalComment on above:Order Comment: No: Do not add to previous drawPerformed By: #### 17454 #### [facility] [address] [place] [address], USAUrea nitrogen [Mass/Vol]28 mg/dLHigh7-25The [facility] HospitalComment on above:Order Comment: No: Do not add to previous drawPerformed By: #### 88987 #### [facility] [address] [place] [address], USACBC COMPLETE BLOOD COUNTon 33-55-6781Ngsfghazell distribution width (RBC) [Ratio]13.5 %Ygpupr58.5-15.0The [facility] HospitalComment on above:Order Comment: No: Do not add to previous draw Performed By: #### 37773 #### [facility] [address] [place] [address], USAHematocrit (Bld) [Volume fraction]37.1 %Oicimv89.0-45.0The [facility] HospitalComment on above:Order Comment: No: Do not add to previous drawPerformed By: #### 68136 #### [facility] [address] [place] [address], USAHemoglobin (Bld) [Mass/Vol]12.2 g/nPLvovxx89.0-15.0The [facility] HospitalComment on above:Order Comment: No: Do not add to previous drawPerformed By: #### 95499 #### [facility] [address] [place] [address], [facility] [[email or web address]]MCH (RBC) [Entitic mass]28.8 obClosvw47.0-33.0The [facility] HospitalComment on above:Order Comment: No: Do not add to previous drawPerformed By: #### 86010 #### [facility] [address] [place] [address], [facility] [[email or web address]]MCHC (RBC) [Mass/Vol]32.9 g/zSDkscws78.0-35.0The [facility] HospitalComment on above:Order Comment: No: Do not add to previous drawPerformed By: #### 98534 #### [facility] [address] [place] [address], [facility] [[email or web address]]MCV (RBC) [Entitic vol]87.7 gBFvatda90.0-98.0The [facility] HospitalComment on above:Order Comment: No: Do not add to previous drawPerformed By: #### 76842 #### [facility] [address] [place] [address], USANucleated RBC/100 WBC (Bld) [Ratio]0 %Normal0-0The [facility] HospitalComment on above:Order Comment: No: Do not add to previous drawPerformed By: #### 24749 #### [facility] [address] [place] [address], USAPLAT MBH449 10*3/uYXdjjvy453-875Bzn [facility] HospitalComment on above:Order Comment: No: Do not add to previous draw Performed By: #### 60935 #### [facility] [address] [place] [address], USARBC (Bld) [#/Vol]4.23 10*6/uLNormal3.80-5.00The [facility] HospitalComment on above:Order Comment: No: Do not add to previous drawPerformed By: #### 45751 #### [facility] [address] [place] [address], USAWBC (Bld) [#/Vol]8.42 10*3/uLNormal4.00-10.60The [facility] HospitalComment on above:Order Comment: No: Do not add to previous drawPerformed By: #### 97062 #### [facility] [address] [place] [address], USACardiovascular Lab Reporton [id number] Lab ReportUnProvidence Hospital Patient Name: [facility] A MR #: [id number] Department of Physician: Marshall Torres M.D. Division of Service Date: 08/23/2018 Cardiology Birthdate: 1970 Adult Cardiovascular Room #: 3AB [id number] [facility] WinterLouis FengGerardo [place], [place] [address] Cardiovascular Laboratory Report FINAL IMPRESSION: 1. Mild [...] 5. Follow up with me in the [facility] post discharge. 6. Further recommendations deferred to [...] the left radial artery was obtained. A 6-Syriac Glidesheath was inserted without difficulty. Bilateral selective [...] 30% stenosis adjacent to a prominent septal vaccine manager. There are luminal irregularities throughout the remainder [...] P/Tk Godoy M.D. Date Trans: 08/24/2018 06:37 Amanda/yadira DN_JN:[id number] cc: Geovanni Brunner D.O. [address] [place] [address] [address] [facility] [address]KdjhgiGlaChildren's Hospital for RehabilitationHIP RIGHT 1 OR 2 VWS WITH PELVISon [id number] RIGHT 1 OR 2 VWS WITH PELVISUnGerman Hospital Department of Radiology [address] [place] [id number] Patient Name: SHERLY HUMPHREYS : 1970 Sex: F Age: Race: White Pt. Location: [id number] Patient Status: D Ordered Date: 08/24/2018 12:30:00 [...] findings. Electronically signed by:Kristy Jones. Transcribed by: [email or web address], User Resident: [email or web address] Electronically Signed by: KRISTY JONES @ 08/25/2018 08:05 PM I personally read this/these film(s) with this [facility] HospitalComment on above:Order Comment: No: Do not add to previous drawPOC GLUCOSE LABon [id number] [Mass/Vol]125 mg/kGSlnj59-367Lxd [facility] HospitalComment on above:Performed By: #### 52148 #### [facility] [address] [place] [address], USAGlucose [Mass/Vol]150 mg/sDEkaq40-481Huk [facility] HospitalComment on above:Performed By: #### 17802 #### [facility] [address] [place] [address], USAGlucose [Mass/Vol]119 mg/pCOoqq85-207Oxz [facility] HospitalComment on above:Performed By: #### 30874 #### [facility] [address] [place] [address], USAUFH HEPARIN ASSAYon 54-58-5297COJJCMBCUBJBOY HEPARIN<0.10 Critically low0.30-0.70The [facility] HospitalComment on above: Result Comment: Rivaroxaban and Apixaban will interfere with the anti Xa assay used to monitor UFH and LMWH. RESULTS CHECKED AND CALLED. ACCURATELY READ BACK BY JANENE [place] RN AT 0732Performed By: #### 27470 #### [facility] [address] [place] [address], [facility] [[email or web address]]APTTon 87-04-8829iZJG Coag (Bld) [Time]38.8 sHigh25.0-35.0 The [facility] HospitalComment on above:Order Comment: No: Do not [...] BE USED FOR THIS PURPOSE.Performed By: #### 87905, 45166 #### [facility] [address] [facility]. [place] [address], [facility] [[email or web address]]CBC COMPLETE BLOOD COUNTon 20-52-9923Atfwwdcwidp distribution width (RBC) [Ratio]13.3 %Nzaijj25.5-15.0The [facility] HospitalComment on above:Order Comment: No: Do not add to previous draw Performed By: #### 37597 #### [facility] [address] [place] [address], USAHematocrit (Bld) [Volume fraction]41.4 %Haavqr84.0-45.0The [facility] HospitalComment on above:Order Comment: No: Do not add to previous drawPerformed By: #### 51997 #### [facility] [address] [facility] [place] [address], USAHemoglobin (Bld) [Mass/Vol]13.8 g/jZDfwtkw66.0-15.0The [facility] HospitalComment on above:Order Comment: No: Do not add to previous drawPerformed By: #### 60252 #### [facility] [address] [place] [address], [facility] (RBC) [Entitic mass]29.0 inGcqxsv19.0-33.0The [facility] HospitalComment on above:Order Comment: No: Do not add to previous drawPerformed By: #### 52470 #### [facility] [address] [place] [address], [facility] (RBC) [Mass/Vol]33.3 g/rHOqlpay10.0-35.0The [facility] HospitalComment on above:Order Comment: No: Do not add to previous drawPerformed By: #### 10398 #### [facility] [address] [place] [address], [facility] (RBC) [Entitic vol]87.0 gSTfqzeo44.0-98.0The [facility] HospitalComment on above:Order Comment: No: Do not add to previous drawPerformed By: #### 95589 #### [facility] [address] [place] [address], [facility] [[email or web address]]Nucleated RBC/100 WBC (Bld) [Ratio]0 %Normal0-0The [facility] HospitalComment on above:Order Comment: No: Do not add to previous drawPerformed By: #### 06315 #### [facility] [address] [facility] [place] [address], [facility] [[email or web address]]PLAT [id number] 10*3/mNVtpcnz842-569Lag [facility] HospitalComment on above:Order Comment: No: Do not add to previous draw Performed By: #### [id number] #### [facility] [address] [place] [address], [facility] [[email or web address]]RBC (Bld) [#/Vol]4.76 10*6/uLNormal3.80-5.00The [facility] HospitalComment on above:Order Comment: No: Do not add to previous drawPerformed By: #### [id number] #### [facility] [address] [place] [address], USAWBC (Bld) [#/Vol]10.48 10*3/uLNormal4.60The [facility] HospitalComment on above:Order Comment: No: Do not add to previous drawPerformed By: #### [id number] #### [facility] [address] [place] [address], USAHistory and Physicalon 69-61-8634Ydtofsu and PhysicalMR#: [id number] [facility] Pt. Name: Sherly Humphreys Admitted: 08/23/2018 Date of : 1970 Attending Physician: Nini Valente MD Room #: 3AB [id number] Discharge Date: HISTORY AND PHYSICAL CHIEF COMPLAINT: [...] to the emergency department in [facility]. Initial evaluation included troponin and EKG, which were negative. The patient was started on nitroglycerin patch. She experienced some relief after starting the nitroglycerin patch. Her pain went down from 8 to 6/10. Given her significant cardiac history, the patient was transferred to [facility] for further evaluation. The patient reports [...] ST-T wave changes. Troponin from [facility] was 0.01. Pending troponin in our [...] A/Nini Valente MD Date Trans: 08/23/2018 06:27 Amadna/yadira DN_JN:[id number] Hospital Company GLUCOSE LAB on 03-68-1160Bztnxjf [Mass/Vol]101 mg/oJTnwh06-588Gdq [facility] HospitalComment on above:Performed By: #### [id number] #### [facility] [address] [place] [address], [facility] [[email or web address]]Glucose [Mass/Vol]96 mg/zTMjnpzl74-050Coa [facility] HospitalComment on above:Performed By: #### [id number] #### [facility] [address] [place] [address], [facility] [[email or web address]]Glucose [Mass/Vol]134 mg/jBCiri30-113Uqv [facility] HospitalComment on above:Performed By: #### [id number] #### [facility] [address] [place] [address], [facility] [[email or web address]]Glucose [Mass/Vol]164 mg/xRVupl55-275Wfu [facility] HospitalComment on above:Performed By: #### [id number] #### [facility] [address] [place] [address], USAPROTHROMBIN TIMEon 23-52-8506VAA Coag (PPP) [Relative time] 1.06 {INR}Normal0.91-1.16The [facility] HospitalComment on above:Order Comment: No: Do not [...] OPTIMAL THERAPEUTIC RANGE. CHEST 1995;108:231S-246S.Performed By: #### [id number], [id number] #### [facility] [address] [facility] [place] [address], USAPT Coag (PPP) [Time]13.8 lJonuwf54.3-14.8The [facility] HospitalComment on above:Order Comment: No: Do not add to previous drawResult Comment: ALL RESULTS MUST BE INTERPRETED WITH RESPECT TO BLOOD DRAWING ARTIFACT OR DILUTION ERROR OF ANTICOAGULANT AT THE TIME OF SAMPLING.Performed By: #### [id number], [id number] #### [facility] [address] [facility] [place] [address], USASERUM TESTon 93-46-3263UMMTHYZCS TESTNegative NormalThe [facility]on HospitalComment on above:Order Comment: Yes: Add to Previous draw if ablePerformed By: #### [id number] #### [facility] [address] [facility]. [place] [id number], USATROPONIN-Ion 29-36-2484Yshugykc I.cardiac [Mass/Vol]0.01 ng/mLNormal0.00-0.04The [facility] HospitalComment on above: Order Comment: No: Do not add to previous drawResult Comment: REFERENCE RANGES: 0.00 - 0.04 ng/ml NORMAL 0.05 - 0.50 ng/ml INDETERMINATE > 0.50 ng/ml CONSISTENT WITH AN M.I.Performed By: #### [id number] #### [facility] [address] [facility] [place] [address], USAUFH HEPARIN ASSAYon [id number] HEPARIN0.42 IU/mLNormal0.30-0.70The [facility] HospitalComment on above: Order Comment: per hiren Quick Comment: Rivaroxaban and Apixaban will interfere with the anti Xa assay used to monitor UFH and LMWH.Performed By: #### [id number] #### [facility] [address] [facility] [place] [address], USAUNFRACTIONATED HEPARIN0.29 IU/mLLow0.30-0.70The [facility] HospitalComment on above:Result Comment: Rivaroxaban and Apixaban will interfere with the anti Xa assay used to monitor UFH and LMWH.Performed By: #### [id number] #### [facility] [address] [place] [address], USAUS GALLBLADDERon 89-68-6024JO GALLBLADDERUnGerman Hospital Department of Radiology [address] [place] [id number] Patient Name: SHERLY HUMPHREYS : 1970 Sex: F Age: Race: White Pt. Location: [address] [place] [address] Patient Status: I Ordered Date: 08/23/2018 11:30:00 [...] gallbladder. Electronically signed by:Nathan Mauricio. Transcribed by: [email or web address], User Resident: Electronically Signed by: NATHAN MAURICIO @ 08/23/2018 03:33 [facility] HospitalComment on above:Order Comment: No: Do not add to previous draw Vital Signs Date TimeVital SignValuePerforming AbyuzzkwfMgdhxfpw26-69-1386 11:20-0500Body esyoph045.56 Mundoisa Louann THAPA-C Work Phone: [facility]11-05-2025 11:20-0500 Body mass index (BMI) [Ratio]39.5 kg/m2Janene Lew NP-C Work Phone: [facility]11-05-2025 11:20-0500 Body goxiroxjtxq26.8 [degF]Janene Lew NP-C Work Phone: [facility]11-05-2025 11:20-0500 Body fxzeje971.49 kgLisa Aichholz CONFIGURATION MANAGEMENT ADVISOR-C Work Phone: 1(385)523-[address] [place], [place] 7734211-05-2025 11:20-0500 Diastolic blood iirfwfql75 mm[Hg]Janene Aichholz CONFIGURATION MANAGEMENT ADVISOR-C Work Phone: 1(691)[address]11-05-2025 11:20-0500 Heart rate70 /minLisa Aichholz CONFIGURATION MANAGEMENT ADVISOR-C Work Phone: 1(598)816-[address] [place], [place] 7734211-05-2025 11:20-0500 SaO2% (BldA) [Mass fraction]98 %Janene Aichholz CONFIGURATION MANAGEMENT ADVISOR-C Work Phone: 1(012)17031 [address]11-05-2025 11:20-0500 Systolic blood zjiokbxb121 mm[Hg]Janene Aichholz CONFIGURATION MANAGEMENT ADVISOR-C Work Phone: 1([phone])[address]10-28-2025 09:28-0400 Body uhpbfr558.56 cmLisa Aichholz CONFIGURATION MANAGEMENT ADVISOR-C Work Phone: 1(249)72431 [address]10-28-2025 09:28-0400 Body mass index (BMI) [Ratio]39.9 kg/m2Lisa Aichholz CONFIGURATION MANAGEMENT ADVISOR-C Work Phone: 1(663)74131 [address]10-28-2025 09:28-0400 Body xqtxhcducgx48.6 [degF]Janene Aichholz CONFIGURATION MANAGEMENT ADVISOR-C Work Phone: 1(160)511-[address] [place], [place] 7734210-28-2025 09:28-0400 Body slyske887.4 kgLisa Aichholz CONFIGURATION MANAGEMENT ADVISOR-C Work Phone: 1(033)425-[address] [place], [place] 7734210-28-2025 09:28-0400 Diastolic blood dfhqjefw28 mm[Hg]Janene Aichholz CONFIGURATION MANAGEMENT ADVISOR-C Work Phone: 1(448)324-[address] [place], [place] 7734210-28-2025 09:28-0400 Heart rate71 /minLisa Aichholz CONFIGURATION MANAGEMENT ADVISOR-C Work Phone: 1(460)994-[address] [place], [place] 7734210-28-2025 09:28-0400 Respiratory rate22 /minJanene Lew CONFIGURATION MANAGEMENT ADVISOR-C Work Phone: [facility]10-28-2025 09:280400 SaO2% (BldA) [Mass fraction]96 %Janene Lew CONFIGURATION MANAGEMENT ADVISOR-C Work Phone: [facility]10-28-2025 09:280400 Systolic blood qflcqorw112 mm[Hg]Janene Lew CONFIGURATION MANAGEMENT ADVISOR-C Work Phone: [facility]10-23-2025 08:13-0400 Body .56 cmKjose Petersen DMD Work Phone: 1(992)[address] [place], [place] 7403310-23-2025 08:13-0400Body mass index (BMI) [Ratio]40.34 kg/l4VqjovJoshua Petersen DMD Work Phone: 1(053)[address] [place], [place] 7403310-23-2025 08:13-0400Body surface area Derived from formula2.19 r6CdtikJoshua Petersen DMD Work Phone: 1(698)[address] [place], [place] 7403310-23-2025 08:13-0400Body lmcndowphbz70.2 [degF]Joshua Petersen DMD Work Phone: 1(311)[address] [place], [place] 7403310-23-2025 08:13-0400Body czooqv829.59 kgJoshua Petersen DMD Work Phone: 1(863)[address] [place], [place] 7403310-23-2025 08:13-0400Diastolic blood qfnwbysw54 mm[Hg]Joshua Petersen DMD Work Phone: 1(612)[address] [place], [place] 7403310-23-2025 08:13-0400Heart rate50 /minJoshua Petersen DMD Work Phone: 1(994)[address] [place], [place] 7403310-23-2025 08:13-0400Systolic blood uivwpzsy507 mm[Hg]Joshua Petersen DMD Work Phone: 1(195)[address] [place], [place] 7403309-16-2025 12:06-0400Diastolic blood mzdarosq79 mm[Hg]Joshua Petersen DMD Work Phone: 1(730)859-[address] [place], [place] 5153409-16-2025 12:06-0400Heart rate64 /minJoshua Petersen DMD Work Phone: 1(725)[address]09-16-2025 12:06-0400Systolic blood bainrbqy928 mm[Hg]Joshua Petersen DMD Work Phone: 1(288)[address]09-02-2025 08:50-0400Body egudcdgcbfc25.3 [degF]Janene Aichholz Work Phone: [facility]09-02-2025 08:50-0400 Body idpjmq769.77 kgLisa Aichholz Work Phone: [facility]09-02-2025 08:50-0400 Diastolic blood kqirjgyw17 mm[Hg]Janene Aichholz Work Phone: [facility]09-02-2025 08:50-0400 Heart rate56 /minLisa Aichholz Work Phone: [facility]09-02-2025 08:50-0400 Respiratory rate20 /minLisa Aichholz Work Phone: [facility]09-02-2025 08:50-0400 Systolic blood mm[Hg]Janene Aichholz Work Phone: [facility]08-19-2025 09:25-0400 Body dwpfoh566.56 cmKjose Petersen DMD Work Phone: 8([phone])[address]08-19-2025 09:25-0400Body mass index (BMI) [Ratio]39.48 kg/h6UpkibJoshua Petersen DMD Work Phone: 1(835)[address]86 [address]08-19-2025 09:25-0400Body surface area Derived from formula2.17 r6Ftirojose Doyleani DMD Work Phone: 1(738)8-[address] [place], [place] 5153408-19-2025 09:25-0400Body tgfbofvmrzq38.7 [degF]Joshua Petersen DMD Work Phone: 1(636)[address] [place], [place] 7403308-19-2025 09:25-0400Body lezztr359.33 kgJoshua Petersen DMD Work Phone: 1(893)[address] [place], [place] 7403308-19-2025 09:25-0400Diastolic blood eywlprvq18 mm[Hg]Joshua Petersen DMD Work Phone: 1(753)[address] [place], [place] 7403308-19-2025 09:25-0400Heart rate53 /Tea Petersen DMD Work Phone: 1(633)[address] [place], [place] 7403308-19-2025 09:25-0400Systolic blood mm[Hg]Joshua Petersen DMD Work Phone: 1(659)[address] [place], [place] 7403308-13-2025 09:39-0400Body lsiesd831.56 cmLisa Aichholz Work Phone: [facility]08-13-2025 09:39-0400 Body mass index (BMI) [Ratio]39.8 kg/m2Lisa Aichholz Work Phone: [facility]08-13-2025 09:39-0400 Body wjewjs132.23 kgLisa Aichholz Work Phone: [facility]08-13-2025 09:39-0400 Diastolic blood zoozyysc84 mm[Hg]Janene Aichholz Work Phone: [facility]08-13-2025 09:39-0400 Heart rate61 /minLisa Aichholz Work Phone: [facility]08-13-2025 09:39-0400 Respiratory rate16 /minLisa Aichholz Work Phone: [facility]08-13-2025 09:39-0400 SaO2% (BldA) [Mass fraction]98 %Janene Louann Work Phone: [facility]08-13-2025 09:39-0400 Systolic blood mm[Hg]Janene Louann Work Phone: [facility]07-21-2025 09:50-0400 Body ujoisg335.2 cmAllison Petznick DO Work Phone: [facility] HospitalZpsnnwzvpi59-81-0300 09:50-0400Body mass index (BMI) [Ratio]36.65 kg/i4Ozayeuh Petznick DO Work Phone: [facility] HospitalPhdmcbpmgx83-45-3093 09:50-0400Body temperature 98.01 [degF]Marya Petznick DO Work Phone: [facility] HospitalHzljqqwbuf60-52-7057 09:50-0400Body lovlcb716.14 kgAllison Petznick DO Work Phone: no[facility] HospitalYnvviuppix28-35-5534 09:50-0400Diastolic blood qrkvyqyw08 mm[Hg]Marya Petznick DO Work Phone: no[facility] HospitalEuhppsicym56-35-4837 09:50-0400Heart rate56 /min Marya Petznick DO Work Phone: no[facility] HospitalLajenephxm89-72-2450 09:50-8114AgW8% (BldA) [Mass fraction]96 %Marya Petznick DO Work Phone: no[facility] HospitalNvfpdgtjgg84-67-5021 09:50-0400Systolic blood ngjcozkn407 mm[Hg]Marya Petznick DO Work Phone: no[facility] HospitalMbxwfeqoof28-78-4855 09:40-0400Body mass index (BMI) [Ratio]37.59 kg/m2Janene Lew CONFIGURATION MANAGEMENT ADVISOR Work Phone: no[facility] HospitalSmtfbwvisk46-75-3588 09:40-0400Body temperature 98.49 [degF]Janene Lew CONFIGURATION MANAGEMENT ADVISOR Work Phone: no[facility] HospitalGmizrqbrgd53-79-2018 09:40-0400Body ptdnit025.86 kgJanene Lew CONFIGURATION MANAGEMENT ADVISOR Work Phone: no[facility] HospitalNbizkgshxj22-41-7753 09:40-0400Diastolic blood atdhrypp82 mm[Hg]Janene Jonesomkar CONFIGURATION MANAGEMENT ADVISOR Work Phone: no[facility] HospitalDibjfsbltr56-36-4472 09:40-0400Heart rate67 /min Janene Lew CONFIGURATION MANAGEMENT ADVISOR Work Phone: [facility] HospitalBymmmvwnyw82-91-6838 09:40-0400Respiratory rate22 /minJanene Middletonrufus CONFIGURATION MANAGEMENT ADVISOR Work Phone: no[facility] HospitalPnbuyulqly30-09-5327 09:40-5316NaU1% (BldA) [Mass fraction]97 %Janene Jonesomkar CONFIGURATION MANAGEMENT ADVISOR Work Phone: no[facility] HospitalPvzrwvravo48-48-5511 09:40-0400Systolic blood lllnmmyc022 mm[Hg]Janene Lew CONFIGURATION MANAGEMENT ADVISOR Work Phone: no[facility] HospitalWcxsqibryb93-12-9759 09:07-0500Body .2 cmAllison Petznick DO Work Phone: no[facility] HospitalTpovifuucz35-98-9371 09:07-0500Body mass index (BMI) [Ratio]38.37 kg/a5Llcsqah Petznick DO Work Phone: no[facility] HospitalPhnfligxhu75-31-1792 09:07-0500Body temperature 98.2 [degF]Marya Petznick DO Work Phone: no[facility] HospitalHnrnnmdrjq23-31-4291 09:07-0500Body uxkjot426.13 kgAllison Petznick DO Work Phone: no[facility] HospitalUnoexgjsci19-83-5269 09:07-0500Diastolic blood dascwuyw38 mm[Hg]Marya Petznick DO Work Phone: no[facility] HospitalSnapvsamcp93-82-3376 09:07-0500Heart rate61 /min Marya Petznick DO Work Phone: no[facility] HospitalDbmihcqrzj08-49-8792 09:07-5430TgY1% (BldA) [Mass fraction]97 %Marya Petznick DO Work Phone: no[facility] HospitalTldbfepxza59-17-3189 09:07-0500Systolic blood mm[Hg]Marya Petznick DO Work Phone: no[facility] HospitalKmtchvgpys60-90-4101 09:28-0500Body .2 Mundoisa Louann CONFIGURATION MANAGEMENT ADVISOR Work Phone: [facility] HospitalJnxnsofysk91-58-8697 09:28-0500Body mass index (BMI) [Ratio]40.69 kg/m2Lisa Louann CONFIGURATION MANAGEMENT ADVISOR Work Phone: [facility] HospitalKqmgmrnvsz84-61-8263 09:28-0500Body temperature 98.49 [degF]Janene Louann CONFIGURATION MANAGEMENT ADVISOR Work Phone: [facility] HospitalGvbdrhoioa26-72-5972 09:28-0500Body ohekhe991.84 kgLi Reddtimmyangiez CONFIGURATION MANAGEMENT ADVISOR Work Phone: [facility] HospitalNizgladlgc46-64-3608 09:28-0500Diastolic blood otveubve47 mm[Hg]Janene Louann CONFIGURATION MANAGEMENT ADVISOR Work Phone: [facility] HospitalMljfjihuwo27-09-9729 09:28-0500Heart rate60 /min Janene Louann CONFIGURATION MANAGEMENT ADVISOR Work Phone: [facility] HospitalHqpcfhpjqb89-86-3473 09:28-0500Respiratory rate20 /minLisa Reddtimmyomkar CONFIGURATION MANAGEMENT ADVISOR Work Phone: [facility] HospitalIopngrarzg96-41-7883 09:28-3947BfA3% (BldA) [Mass fraction]96 %Janene Louann CONFIGURATION MANAGEMENT ADVISOR Work Phone: no[facility] HospitalEhkfpejfnz61-01-3079 09:28-0500Systolic blood gsnidlpw787 mm[Hg]Janene Louann CONFIGURATION MANAGEMENT ADVISOR Work Phone: [facility] HospitalMqwqpnvqul49-27-9425 09:23-0500Body fzgkfa314.6 cmAllison Petznick DO Work Phone: no[facility] HospitalQwpeuxguph22-93-4629 09:23-0500Body mass index (BMI) [Ratio]46.86 kg/u8Fneosxl Petznick DO Work Phone: no[facility] HospitalAgnacecymu98-72-9491 09:23-0500Body temperature 96.8 [degF]Marya Petznick DO Work Phone: no[facility] HospitalInlwnjhhhj73-71-2363 09:23-0500Body czishf540.83 kgAllison Petznick DO Work Phone: [place] [address]Myriipnomc72-23-1703 09:23-0500Diastolic blood fyezwfeb65 mm[Hg]Marya Petznick DO Work Phone: no[facility] HospitalEghxpytktw56-17-2694 09:23-0500Heart rate56 /min Marya Petznick DO Work Phone: no[facility] HospitalHjanebllbe53-15-2978 09:23-3967PoQ3% (BldA) [Mass fraction]97 %Marya Petznick DO Work Phone: no[facility] HospitalZgraexpmno46-84-1222 09:23-0500Systolic blood gidqzino026 mm[Hg]Marya Petznick DO Work Phone: no[facility] HospitalScbljteffm44-81-7197 08:35-0400Body .6 Mundoisa Louann CONFIGURATION MANAGEMENT ADVISOR Work Phone: [facility] HospitalQhnqrezfjz00-57-3329 08:35-0400Body mass index (BMI) [Ratio]49.06 kg/m2Luannesa Emiz CONFIGURATION MANAGEMENT ADVISOR Work Phone: [facility] HospitalYvgltuxcrv06-06-4495 08:35-0400Body temperature 98.71 [degF]Janene Louann CONFIGURATION MANAGEMENT ADVISOR Work Phone: [facility] HospitalEaagejpour69-42-0486 08:35-0400Body sjlkye510.64 kgLisa Louann CONFIGURATION MANAGEMENT ADVISOR Work Phone: [facility] HospitalQljlavmeqp42-56-1894 08:35-0400Diastolic blood nzmyaqvu99 mm[Hg]Janene Aichholz CONFIGURATION MANAGEMENT ADVISOR Work Phone: [facility] HospitalFkiwlldjbv90-02-6159 08:35-0400Heart rate66 /min Janene Aichholz CONFIGURATION MANAGEMENT ADVISOR Work Phone: [facility] HospitalIvblinrxpz99-33-1580 08:35-0400Respiratory rate20 /minLisa Aichholz CONFIGURATION MANAGEMENT ADVISOR Work Phone: [facility] HospitalAykdkdmezy11-72-3089 08:35-6963VkD5% (BldA) [Mass fraction]98 %Janene Aichholz CONFIGURATION MANAGEMENT ADVISOR Work Phone: [facility] HospitalErmaohtaou40-96-2959 08:35-0400Systolic blood mm[Hg]Janene Aichholz CONFIGURATION MANAGEMENT ADVISOR Work Phone: [facility] HospitalMwusfdmhkm01-63-6214 11:00-0400Diastolic blood gszirhef27 mm[Hg]Janene Aichholz Work Phone: 1(293)462-[address] [place], [place] 7734207-18-2024 11:00-0400 Heart rate52 /minLisa Aichholz Work Phone: 1(659)168-[address] [place], [place] 7734207-18-2024 11:00-0400 Respiratory rate16 /minLisa Aichholz Work Phone: 1(980)[address]07-18-2024 11:00-0400 SaO2% (BldA) [Mass fraction]98 %Janene Aichholz Work Phone: 1(501)884-[address] [place], [place] 7734207-18-2024 11:00-0400 Systolic blood jhummncf351 mm[Hg]Janene Aichholz Work Phone: 1(529)342-[address] [place], [place] 7734207-18-2024 10:30-0400 Inhaled oxygen flow rate8 L/minLisa Aichholz Work Phone: 1(457)[address]07-18-2024 07:28-0400 Body jsripl618.56 cmLisa Aichholz Work Phone: 1(050)922-[address] [place], [place] 7734207-18-2024 07:28-0400 Body zejidrpzhdt85.9 [degF]Janene Aichholz Work Phone: 1(937)02531 [address]07-18-2024 07:28-0400 Body mrvvyf322.72 kgLisa Aichholz Work Phone: 1(102)[address]07-02-2024 13:05-0400 Body amiyrw780.56 cmLisa Aichholz Work Phone: 1(960)[address]07-02-2024 13:05-0400 Body mass index (BMI) [Ratio]51.5 kg/m2Lisa Aichholz Work Phone: 1(984)[address]07-02-2024 13:05-0400 Body xajvamsoorg84.3 [degF]Janene Aichholz Work Phone: 1(939)[address]07-02-2024 13:05-0400 Body .3 kgLisa Aichholz Work Phone: 1(439)84031 [address]07-02-2024 13:05-0400 Diastolic blood mm[Hg]Janene Aichholz Work Phone: 1(659)38031 [address]07-02-2024 13:05-0400 Heart rate69 /minLisa Aichholz Work Phone: 1(371)[address]07-02-2024 13:05-0400 Respiratory rate18 /minLisa Aichholz Work Phone: 1(455)[address]07-02-2024 13:05-0400 SaO2% (BldA) [Mass fraction]99 %Janene Aichholz Work Phone: 1(567)[address]07-02-2024 13:05-0400 Systolic blood ooyotzpa135 mm[Hg]Janene Aichholz Work Phone: 1(432)[address]06-18-2024 08:00-0400 Body amqrrtxsswa97.9 [degF]Janene Aichholz Work Phone: 1(624)003-[address] [place], [place] 7734206-18-2024 08:00-0400 Diastolic blood ljmmoskb73 mm[Hg]Janene Aichholz Work Phone: 1(319)43831 [address]06-18-2024 08:00-0400 Heart rate58 /minLisa Aichholz Work Phone: 1(637)19531 [address]06-18-2024 08:00-0400 Respiratory rate16 /minLisa Aichholz Work Phone: 1(357)30031 [address]06-18-2024 08:00-0400 SaO2% (BldA) [Mass fraction]100 %Janene Aichholz Work Phone: 1(526)03731 [address]06-18-2024 08:00-0400 Systolic blood axztwspt687 mm[Hg]Janene Aichholz Work Phone: 1(898)98731 [address]06-18-2024 05:02-0400 Body grbaxd661.8 kgLisa Aichholz Work Phone: 1(646)[address]131 [address]06-17-2024 05:34-0400 Body jldafq487.56 cmLisa Aichholz Work Phone: 1(501)[address]331 [address]05-01-2024 10:02-0400 Body rupykd942.56 cmLisa Aichholz Work Phone: 1(650)25531 [address]05-01-2024 10:02-0400 Body mass index (BMI) [Ratio]54.6 kg/m2Lisa Aichholz Work Phone: 1(174)63231 [address]05-01-2024 10:02-0400 Body rhrpvptteon19.9 [degF]Janene Aichholz Work Phone: 1(632)[address]31 [address]05-01-2024 10:02-0400 Body nsguov599.24 kgLisa Aichholz Work Phone: 1(137)50931 [address]05-01-2024 10:02-0400 Diastolic blood nmohgcfi37 mm[Hg]Janene Jonesholrufus Work Phone: [facility]05-01-2024 10:02-0400 Heart rate59 /Garland Jonesholrufus Work Phone: [facility]05-01-2024 10:02-0400 Respiratory rate18 /minJanene Jonesholrufus Work Phone: [facility]05-01-2024 10:02-0400 SaO2% (BldA) [Mass fraction]98 %Janene Jonesholrufus Work Phone: [facility]05-01-2024 10:02-0400 Systolic blood aozhvhnz282 mm[Hg]Janene Jonesholz Work Phone: [facility]05-01-2023 10:15-0400 Body eosblb151.56 cmSlan Sams Other [place] [employer] Other 05-01-2023 10:15-0400Body mass index (BMI) [Ratio] 51.63 kg/x3Utlruxfern Sams Other [facility] [employer] Other 05-01-2023 10:15-0400Body .44 kgIvan Sams Other [facility] [employer] Other 05-01-2023 10:15-0400Diastolic blood amdceyki65 mm[Hg] Ivan Sams Other [employer] Other 05-01-2023 10:15-8536FdR9% (BldA) [Mass fraction]99 % Ivan Sams Other [facility] [employer] Other 05-01-2023 10:15-0400Systolic blood vgqaffsv510 mm[Hg] Ivan Pandaky Other [place] [employer] Other 03-20-2023 12:30-0400Body henlwt734.56 cmSlan Sams Other [place] [employer] Other 03-20-2023 12:30-0400Body mass index (BMI) [Ratio] 51.39 kg/j1FtdslyIvan aSms Other [place] [employer] Other 03-20-2023 12:30-0400Body xdopnz779.81 kgShfern Sams Other [place] [employer] Other 03-20-2023 12:30-0400Diastolic blood nnenkxhd85 mm[Hg] Ivan Pandaky Other [place] [employer] Other 03-20-2023 12:30-5880ThY4% (BldA) [Mass fraction]99 % Ivan Sams Other [place] [employer] Other 03-20-2023 12:30-0400Systolic blood hysrcmjj198 mm[Hg] Ivan Latrell Other [place] [employer] Other 03-11-2023 15:59-0500Body mfaner223.56 cmLisa Karenomkar Work Phone: [facility]03-11-2023 15:59-0500 Body qcstxlnaxqp09.2 [degF]Janene Louann Work Phone: [facility]03-11-2023 15:59-0500 Body arsorc057.4 kgLisa Reddomkar Work Phone: [facility]03-11-2023 15:59-0500 Diastolic blood qmfuzqcg39 mm[Hg]Janene Jonesholrufus Work Phone: [facility]03-11-2023 15:59-0500 Heart rate94 /Garland Jonesholz Work Phone: [facility]03-11-2023 15:59-0500 Respiratory rate20 /minJanene Jonesholrufus Work Phone: [facility] Center03-11-2023 15:59-0500 SaO2% (BldA) [Mass fraction]96 %Janene Karenholz Work Phone: [facility]03-11-2023 15:59-0500 Systolic blood thwocfqr828 mm[Hg]Janene Jonesholz Work Phone: [facility]01-27-2023 12:00-0500 Body .56 cmDale Hamilton Other [facility] [employer] Other 01-27-2023 12:00-0500Body mass index (BMI) [Ratio] 51.94 kg/m2Dale Hamilton Other [place] [employer] Other 01-27-2023 12:00-0500Body qomigt011.26 kgDale Hamilton Other [place] [employer] Other 01-10-2023 12:20-0500Body .56 Rylie Mac Other [facility] [employer] Other 01-10-2023 12:20-0500Body mass index (BMI) [Ratio] 51.94 kg/m2Halle Mac Other [facility] [employer] Other 01-10-2023 12:20-0500Body ruwswfyqsrx42.5 [degF]Halle Mac Other [employer] Other 01-10-2023 12:20-0500Body zknonn886.26 kgAzaurelia Mac Other [employer] Other 01-10-2023 12:20-0500Diastolic blood nprkytej96 mm[Hg] Halle Mac Other [employer] Other 01-10-2023 12:20-0500Respiratory rate18 /minHalle Mac Other [employer] Other 01-10-2023 12:20-0567ZmL1% (BldA) [Mass fraction]97 % Halle Mac Other [employer] Other 01-10-2023 12:20-0500Systolic blood jngcketx470 mm[Hg] Halle Mac Other [employer] Other 10-12-2022 16:15-0400Body xergqi796.56 cmPeggy Bolivar Other [employer] Other 10-12-2022 16:15-0400Body mass index (BMI) [Ratio] 52.78 kg/q6Lkwkc Bolivar Other [employer] Other 10-12-2022 16:15-0400Body yxbghlrywzi00.1 [degF]Emma Bolivar Other [employer] Other 10-12-2022 16:15-0400Body eypypr136.48 kgPeggy Bolivar Other [employer] Other 10-12-2022 16:15-0400Diastolic blood vmmamyjr34 mm[Hg] Emma Bolivar Other [employer] Other 10-12-2022 16:15-7275RoJ4% (BldA) [Mass fraction]98 % Emma Bolivar Other [employer] Other 10-12-2022 16:15-0400Systolic blood oujemolk150 mm[Hg] Emma Bolivar Other [employer] Other 08-23-2022 12:20-0400Body hniejy982.56 cmDale Hamilton Other [employer] Other 08-23-2022 12:20-0400Body mass index (BMI) [Ratio] 46.34 kg/m2Dale Hamilton Other [employer] Other 08-23-2022 12:20-0400Body cilqcc890.47 kgDale Hamilton Other [employer] Other 07-28-2022 16:20-0400Body qwnmom265.56 cmDale Hamilton Other [employer] Other 07-28-2022 16:20-0400Body mass index (BMI) [Ratio] 46.34 kg/m2Dale Hmailton Other [employer] Other 07-28-2022 16:20-0400Body zairmq905.47 kgDale Hamilton Other [employer] Other 06-16-2022 14:00-0400Body gkpfvy947.56 cmDale Hamilton Other [employer] Other 06-16-2022 14:00-0400Body mass index (BMI) [Ratio]46 kg/m2Dale Hamilton Other [employer] Other 06-16-2022 14:00-0400Body vcamnv778.56 kgDale Hamilton Other [employer] Other 05-17-2022 15:40-0400Body .56 cmDale Hamilton Other [employer] Other 05-17-2022 15:40-0400Body mass index (BMI) [Ratio]46 kg/m2Dale Hamilton Other [employer] Other 05-17-2022 15:40-0400Body .56 kgDale Hamilton Other [employer] Other Encounters Encounter DateEncounter TypeCare ProviderFacilityStart: 02-18-2025 End: 88-49-3867cyevuyenmgOuhbJair Lew NP-C Work Phone: -[facility] ClydeStart: 02-18-2025 End: 94-48-9961Hlbedof encounter procedureLisa Moses FREEDC-[facility] [place] Work Phone: Start: 31-97-8281Ibpdbapfvk Judit Alonso MDVIR[facility] CredibleStart: 46-77-5855fotxmgczxfRzjjjpqznnf Abdelaziz [facility] 02-10-2025 End: 51-29-1498rtvezeqcbqLjscJair Lew NP-C Work Phone: -[facility] ClydeStart: 02-10-2025 End: 70-43-1597Jyddrek encounter procedureLisa Moses Lew NP-C-[facility] [place] Work Phone: Start: 02-05-2025 End: 54-17-0664Uxvejdbob identifierJoshua Petersen DMD Work Phone: [facility] ClinicStart: 96-38-6378qjdfdanplvTjrjk Kanani [facility]ITALtart: 20-37-7029Lwoegdycls Judit Alonso MD- CredibleStart: 01-26-2025 End: 24-05-0989tfxgsgsbzbEhjzubg Chastity Conway MDFacility:[facility] [place] Start: 60-85-6716Jmq-patient / Non-visitAndrius Man SHARMA-[facility] Work Phone: Start: 12-30-2024 End: 19-45-1253Pfdjmjbpv Yang Petersen DMD Work Phone: [facility] ClinicStart: 12-16-2024 End: 08-22-0881yynaaqzxgrBudr J Aichholz Work Phone: [facility] Work Phone: Start: 12-16-2024 End: 45-49-4813Uulswix encounter procedureJanene Lew CONFIGURATION MANAGEMENT ADVISOR-C-[facility] [place] Work Phone: Start: 31-67-8634qpkslsdwfpOBLPMarietta Osteopathic Clinictart: 12-12-2024 End: 29-44-6437awsuqhbmncBSNIEast [facility] Regional Hospitaltart: 12-06-2024 End: 24-19-4299Zazrwcjuy Result EncounterGeneric External Data ProviderNOMS External Department UnsolicitedStart: 12-06-2024 End: 68-43-0015Qwybpfolx Result EncounterGeneric External Data ProviderNOMS External Department UnsolicitedStart: 12-06-2024 End: 01-27-9904RbfbocBrkz Aichholz NP Work Phone: NOMS CWM FMComment on above:Restless leg syndrome Start: 12-02-2024 End: 20-44-2128bkrucdur oral evaluation - established patientKjose Petersen DMD Work Phone: [facility]: 12-02-2024 End: 66-96-7510Scsvhpmuq identifierKjose Petersen DMD Work Phone: [facility] ClinicStart: 11-26-2024 End: 13-73-5009vhzhekuipmWdui J Aichholz Work Phone: [facility] Work Phone: Start: 11-26-2024 End: 29-66-1638Snzerjg encounter procedureHalle Mac MD-[facility] Work Phone: Start: 11-21-2024 End: 66-18-6878RajuqeXgqp Aichholz CONFIGURATION MANAGEMENT ADVISOR Work Phone: noms CWM FMComment on above:Restless leg syndrome Start: 11-18-2024 End: 10-53-6437Blpwisg encounter Denice Mac MD-[facility] Work Phone: Start: 11-18-2024 End: 74-30-2657jybukcjlrhXpnz J Aichholz Work Phone: [facility] Work Phone: Start: 11-17-2024 End: 28-97-8227Zqlefdqbm Result EncounterGeneric External Data ProviderNOMS External Department UnsolicitedStart: 11-17-2024 End: 63-08-6983Ofoonujnp Result EncounterGeneric External Data ProviderNOMS External Department UnsolicitedStart: 11-11-2024 End: 11-83-5703NfequvPctc Aichholz CONFIGURATION MANAGEMENT ADVISOR Work Phone: noms CWM FMComment on above:Muscle spasmStart: 89-88-1159Wtiprwjhtl Judit Alonso MD- CredibleStart: 11-03-2024 End: 35-76-2336Kfwqow flowsTasha Castorena DO Work Phone: [facility] SWS FM 230Start: 11-03-2024 End: 00-04-1719Cenclk flowsheetMarya Castorena DO Work Phone: N[facility] SWS FM 230Start: 11-03-2024 End: 83-81-4929Cjpwjj outpatient visit 25 minutesMarya Castorena DO Work [...] index (BMI) of36.0 to 36.9 in adult ([facility])Start: 11-03-2024 End: 65-96-8055mjcprdemmzPGLLPXT M PETZNICKNot AvailableStart: 10-16-2024 End: 48-07-4353lpntyslohbWWDNMercy Healthtart: 10-16-2024 End: 62-61-3055Evtopyumq for other preprocedural examinationWayne Hospitaltart: 10-07-2024 End: 95-48-6401Erjvfksuj Result EncounterGeneric External Data ProviderNOMS External Department UnsolicitedStart: 10-07-2024 End: 83-27-5651Bvhzvqaqh Result EncounterGeneric External Data ProviderNOMS External Department UnsolicitedStart: 09-09-2024 End: 98-39-8100LtfqynQzvp Aichholz CONFIGURATION MANAGEMENT ADVISOR Work Phone: noms CWM FMComment on above:Restless leg syndrome Start: 09-03-2024 End: 91-87-3040Lpgbzzc encounter statusJanene Lew CONFIGURATION MANAGEMENT ADVISOR Work Phone: NOMS HealthcareStart: 09-03-2024 End: 49-34-0177Xqtqvorp preventive med est patient 40-64yrsLisa Lew CONFIGURATION MANAGEMENT ADVISOR Work Phone: noms CWM FMComment on above:Encounter for wellness examination in adult (Primary Dx); Encounter for screening mammogram for malignant neoplasm of breast; Primary hypertension (CMS/HCC); Chronic diastolic heart failure (CMS/HCC); Stage 3b chronic kidney disease (HCC) (CMS/HCC); Class 2 severe obesity due to excess calories with serious comorbidity and body mass index (BMI) of38.0 to 38.9 in adult (CMS/HCC); Type 2 diabetes mellitus with stage 3a chronic kidney disease, without long-term current use of insulin (HCC) (CMS/HCC); Mixed hyperlipidemia (CMS/HCC)Start: 09-03-2024 End: 72-30-5022lefpggqllgPPEV RAYMONDot AvailableStart: 09-01-2024 End: 99-57-5719KchtnoKhjg Aichholz CONFIGURATION MANAGEMENT ADVISOR Work Phone: NOQX CWM FMComment on above:Primary hypertension (CMS/HCC)Muscle spasmStart: 08-28-2024 End: 80-24-4454Zswnhxlcr Result EncounterLisa Karenholz CONFIGURATION MANAGEMENT ADVISOR Work Phone: noms External Department UnsolicitedStart: 08-28-2024 End: 04-20-4238Xctjxenod Result EncounterLisa Reddhholz CONFIGURATION MANAGEMENT ADVISOR Work Phone: noms External Department UnsolicitedStart: 08-12-2024 End: 66-97-0346DjhkkeXtdw Reddhholz CONFIGURATION MANAGEMENT ADVISOR Work Phone: noms CWM FMStart: 07-25-2024 End: 62-83-6180XkuebaKoad Reddhholz CONFIGURATION MANAGEMENT ADVISOR Work Phone: NOMS CWM FMComment on above:Restless leg syndrome Start: 07-15-2024 End: 73-23-2160Fdnpkz OnlyLisa Karenholz CONFIGURATION MANAGEMENT ADVISOR Work Phone: NOUU CWM FMComment on above:Acute foot pain, left (Primary Dx); Acute left ankle painStart: 06-16-2024 End: 53-71-9087Tpnbwd flowsheetMarya Castorena DO Work Phone: [facility] SWS FM 230Start: 06-16-2024 End: 99-53-9246Vfatdk flowsheetMarya Castorena DO Work Phone: [facility] SWS FM 230Start: 06-16-2024 End: 41-28-9507Dnzvvu outpatient visit 25 minutesAllronny Castorena DO Work Phone: NOMS SWS FM 230Comment on above:Class 2 severe obesity due to excess calories with serious comorbidity and body mass index (BMI) of 38.0 to 38.9 in adult ([facility]) (Primary Dx); Type 2 diabetes mellitus with other circulatory complications ([facility]); Type 2 diabetes mellitus with stage 3a chronic kidney disease, without long-term current use of insulin ([facility]) ([facility])Start: 06-16-2024 End: 96-67-2777mffcwwkljuGEEXCUU M PETZNICKNot AvailableStart: 05-27-2024 End: 78-55-3462JhemstCvwb Aichholz CONFIGURATION MANAGEMENT ADVISOR Work Phone: NONO CWM FMComment on above:Muscle spasmStart: 04-21-2024 End: 83-69-3830Mlbylufhf Result EncounterGeneric External Data ProviderNOMS External Department UnsolicitedStart: 04-21-2024 End: 74-39-9915Imegwomov Result EncounterGeneric External Data ProviderNOMS External Department UnsolicitedStart: 03-20-2024 End: 29-54-9367SeudfyQtjq Aichholz CONFIGURATION MANAGEMENT ADVISOR Work Phone: NOJZ CWM FMComment on above:Restless leg syndrome Start: 03-11-2024 End: 46-23-8443vzquxgsdkaPpsk BakhousFacility:[facility] Start: 03-06-2024 End: 62-41-1154Xzaittzander Lew CONFIGURATION MANAGEMENT ADVISOR Work Phone: NOMS CWM FMStart: 03-06-2024 End: 07-01-5186Zztvux flowsheetJanene Lew CONFIGURATION MANAGEMENT ADVISOR Work Phone: NOYQ CWM FMStart: 03-06-2024 End: 72-02-8436Ejzxre outpatient visit 25 minutesLuanne Louann CONFIGURATION MANAGEMENT ADVISOR Work Phone: NOMS CWM FMComment on above:Primary [...] index (BMI) of45.0 to 49.9 in adult ([facility]); Bipolar affective disorder, remission status unspecified ([facility]/HCC); Generalized anxiety disorder ([facility]/HCC); Vitamin D deficiency; Vitamin B12 deficiency; H/O bariatric surgery; Acute non-recurrent pansinusitisStart: 03-06-2024 End: 75-43-4925oxldazkswgAJYMDhruv Nixon AvailableStart: 02-22-2024 End: 92-28-5295HhxcnxDjey Aichholz CONFIGURATION MANAGEMENT ADVISOR Work Phone: NOWO CWM FMComment on above:Muscle spasmStart: 02-19-2024 End: 31-02-4113Bevrcm outpatient visit 25 minutesMarya Castorena DO Work Phone: NOMS SWS FM 230Comment on above:Type 2 diabetes mellitus with other circulatory complications (CMS/HCC) (Primary Dx); Type 2 diabetes mellitus with stage 4 chronic kidney disease, without long-term current use of insulin (CMS/HCC); Type 2 diabetes mellitus with stage 3a chronic kidney disease, without long-term current use of insulin (HCC) (CMS/HCC); Class 3 severe obesity due to excess calories with serious comorbidity and body mass index (BMI) of45.0 to 49.9 in adult (CMS/HCC)Start: 02-19-2024 End: 01-15-7636xkqvnvdqecIGYSQBD M PETZNICKNot AvailableStart: 02-01-2024 End: 57-94-9642Yphyifama Result EncounterGeneric External Data ProviderNOMS External Department UnsolicitedStart: 02-01-2024 End: 78-92-3096Ljhjxsahs Result EncounterGeneric External Data ProviderNOMS External Department UnsolicitedStart: 01-14-2024 End: 40-93-0893LrcilqCyok Aichholz CONFIGURATION MANAGEMENT ADVISOR Work Phone: NOJU CWM FMComment on above:Primary hypertension ([facility])Start: 12-19-2023 End: 03-48-4338BgroqrQgox Aichholz CONFIGURATION MANAGEMENT ADVISOR Work Phone: NOMS CWM FMComment on above:Type 2 diabetes mellitus with stage 4 chronic kidney disease, without long-term current use of insulin ([facility]) (Primary Dx)Start: 12-18-2023 End: 54-30-4813Mkvxukpzo Result EncounterLisa Aichholz CONFIGURATION MANAGEMENT ADVISOR Work Phone: noms External Department UnsolicitedStart: 12-18-2023 End: 92-86-4871Hrmikoxgd Result EncounterLisa Aichholz CONFIGURATION MANAGEMENT ADVISOR Work Phone: noms External Department UnsolicitedStart: 12-18-2023 End: 96-26-4175NoxhnfFaqy Aichholz CONFIGURATION MANAGEMENT ADVISOR Work Phone: NOMS CWM FMComment on above:Restless leg syndrome Start: 12-18-2023 End: 64-01-1730UvxgmzXabo Aichholz CONFIGURATION MANAGEMENT ADVISOR Work Phone: NOMS CWM FMComment on above:Antibiotic-induced yeast infection (Primary Dx)Start: 12-05-2023 End: 66-86-0270Ccfvbz flowsheetLisa Aichholz CONFIGURATION MANAGEMENT ADVISOR Work Phone: NOMS CWM FMStart: 12-05-2023 End: 05-67-9812Aujfxy flowsheetLisa Aichholz CONFIGURATION MANAGEMENT ADVISOR Work Phone: noms CWM FMStart: 12-05-2023 End: 23-43-7175PpmtbeOcze Aichholz CONFIGURATION MANAGEMENT ADVISOR Work Phone: noms CWM FMComment on above:Muscle spasmStart: 12-05-2023 End: 39-25-7985Vtpihf outpatient visit 25 minutesLisa Lew CONFIGURATION MANAGEMENT ADVISOR Work Phone: noms CWM FMComment on above:Left lower quadrant abdominal pain (Primary Dx); Morbid (severe) obesity due to excess calories (CMS/HCC); Body mass index (BMI) 45.0-49.9, adult (CMS/HCC); Restless leg syndrome; Stage 3b chronic kidney disease (HCC) (CMS/HCC)Start: 12-05-2023 End: 13-82-8443frodxecrtbZCFS AICHHOLZNot AvailableStart: 11-19-2023 End: 40-85-9236iaybezvkawUBAGLHB M PETZNICKNot AvailableStart: 11-12-2023 End: 39-20-6453iscuryurqhAVOXVC CLEMENTE VNot AvailableStart: 11-01-2023 End: 36-16-1071Opdzhhsad to same day surgery centerJanene Lew Work Phone: [facility] HospitalStart: 11-01-2023 End: 00-34-3136fupbpwwhecXifv J Aichholz Work Phone: [facility] Work Phone: Start: 44-14-4882Kkauzgoctj RecurringLisa Lew Work Phone: [facility]- CredibleStart: 10-16-2023 End: 24-20-1075jqklfacssvRuqs J Aichholz Work Phone: [facility] Work Phone: Start: 10-16-2023 End: 36-77-3304Imfzdyy encounter procedureLisa Lew Work Phone: [facility] Work Phone: Start: 56-70-2632Tekduvpxug RecurringLisa Aichholz Work Phone: [facility]- CredibleStart: 10-11-2023 End: 53-65-5846moklqhewzxBmet J Aichholz Work Phone: [facility] Work Phone: Start: 10-11-2023 End: 72-44-2164Yjwapck encounter procedureLisa Aichholz Work Phone: [facility]-Lab [facility] [place] Work Phone: Start: 66-70-9708Icf-patient / Non-visitLisa Aichholz Work Phone: [facility] Work Phone: Start: 10-01-2023 End: 54-58-0077Nlpgehbike and management of inpatientLisa Aichholz Work Phone: [facility] [place] [facility] Work Phone: Start: 09-28-2023 End: 46-07-7971Qpbakvavl Result EncounterLisa Aichholz CONFIGURATION MANAGEMENT ADVISOR Work Phone: noms External Department UnsolicitedStart: 09-28-2023 End: 23-75-7461Lqkfarmbx Result EncounterLisa Aichholz CONFIGURATION MANAGEMENT ADVISOR Work Phone: noms External Department UnsolicitedStart: 09-03-2023 Registered RecurringLisa Aichholz Work Phone: [facility] CredibleStart: 08-15-2023 End: 93-78-2342Jylgwsx encounter procedureLisa Aichholz Work Phone: [facility] Work Phone: Start: 08-10-2023 End: 99-29-0100dhxsiqjbrhKnrs J Aichholz Work Phone: [facility] Work Phone: Start: 08-10-2023 End: 96-70-3756Iwqstbn encounter procedureLisa Aichholz Work Phone: [facility] [place] Work Phone: Start: 06-19-2023 End: 37-89-4448Ntoowty encounter procedureLisa Aichholz Work Phone: [facility]-Lab [facility] [place] Work Phone: Start: 05-25-2023 End: 92-18-9785vnqylxuxyiTHPN A NADERERFacility:[facility] HospitalStart: 05-17-2023 End: 45-59-9639qfdkouwpbpJfpe J Aichholz Work Phone: [facility] Work Phone: Start: 05-17-2023 End: 47-39-9641Sozxbmo encounter procedureLisa Aichholz Work Phone: [facility]-Lab [facility] [place] Work Phone: Start: 05-10-2023 End: 20-66-3997Vqgcrjeym Result EncounterGeneric External Data ProviderNOMS External Department UnsolicitedStart: 05-10-2023 End: 85-34-1592Hdaolfllc Result EncounterGeneric External Data ProviderNOMS External Department UnsolicitedStart: 58-87-5560Ojhvdxrwrw RecurringLisa Aichholz Work Phone: [facility]- CredibleStart: 11-29-2022 End: 09-63-7001hquzucdixmXaui Bakhous Other [facility] [employer] Other Start: 52-27-0360Bcykfvjqq encounterAziz BakcarmelFPG NephrologyStart: 09-18-2022 End: 16-37-1282smzgerohxtJjyeii Latrell Other [email or web address] Other Start: 68-11-1936Fdejphneu encounterSherying SamsFPG Pain ManagementStart: 09-07-2022 End: 43-08-9878xpqitjulzzRDL JANENE LOUANNFacility:T0Lxbxy: 08-14-2022 End: 10-04-6539miubzqaopqMnydtw Latrell Other [facility] [email or web address] Other Start: 07-11-1485Vnugbk outpatient visit 25 minutes Ivan SamsFPG Pain ManagementStart: 07-03-2022 End: 44-60-0044aphbqsmjrrXjpfyv Latrell Other [facility] [employer] Other Start: 96-53-5335Ejejwv consultation new/estab patient 60 minSlan SamsFPG Pain ManagementStart: 06-24-2022 End: 40-81-4418Xujtrwjjm department patient visitLuanne Reddangierufus Work Phone: [facility]-Emergency Room Work Phone: Start: 06-08-2022 End: 21-33-5159glcbdujjbgHLY JANENE AICHHOLZFacility:X0Joxcg: 05-29-2022 End: 15-26-8151jneqgiigosQFX JANENE AICHHOLZFacility:R6Tdjwl: 76-51-6728mwchrlicwf MANAGER FRAUD JANENE AICHHOLZFacility:B3Jhgeo: 05-12-2022 End: 89-38-2548kiarudqkooWkxh Alfonso Other [facility] [employer] Other start: 43-84-2665Fbuldj outpatient visit 15 minutes Christian Nino [facility] NeurosurgeryStart: 04-25-2022 End: 23-88-3313kzykachnuxOopl Bakhous Other [employer] Other Start: 49-58-6859Rqsoms outpatient new 30 minutesAzaurelia MacFPG Nephrology ClydeStart: 03-29-2022 End: 65-17-8018yfuwtbdkwwHZD JANENE AICSAULOFacility:G2Dygjk: 03-23-2022 End: 91-61-4607fjtswauzfpRBE JANENE AICHHOLZFacility:Y3Drwqd: 02-19-2022 End: 55-30-4063psqoumvonqNRG JANENE AICHHOLZFacility:E8Syttr: 02-16-2022 End: 52-03-8730pnsghrnmxtXX MYRIAM PERRIN .Facility:I2Bzsly: 91-87-4119ryzxptdroeKVD JANENE AICLULZFacility:F8Pyxin: 01-25-2022 End: 25-45-9695Cjspwnt encounter procedureLisa Lew Work Phone: [facility]-Sleep LabStart: 01-25-2022 End: 06-93-6753gmmpbiftuzHbxh J Louann Work Phone: [facility] Work Phone: Start: 52-20-4951Dbcngj outpatient visit 25 minutes [facility] SouthStart: 01-25-2022 End: 94-57-5793ssmjtiwkajIRG JANENE AICHHOLZFacility:G5Kwfdq: 01-23-2022 End: 10-72-0404yvybsxghamCWI JANENE AICHHOLZFacility:C6Ajrxx: 01-12-2022 End: 21-90-6864krgskxloduRBK JANENE AICHHOLZFacility:V4Bsujk: 12-21-2021 End: 55-60-7785hmhstdbjkoFDI JANENE AICHHOLZFacility:L7Ussra: 12-06-2021 End: 67-67-9204nveedsrjyrBaox Braun Other [facility] Other start: 52-55-5993Iitzea outpatient visit 15 minutes Christian BraunL[facility] NeurosurgeryStart: 11-30-2021 End: 77-56-6034mlfeghyvwaVCW JANENE LOUANNFacility:L8Wabjg: 11-28-2021 End: 95-00-7738dziilxcrbxWUX JANENE LOUANNFacility:B8Rrpoo: 11-14-2021 End: 48-09-7244basiztspetWyjq J Aicholz Work Phone: [facility] Work Phone: Start: 11-14-2021 End: 61-63-7144Cvkfxepgff RecurringLisa [facility] Work Phone: [facility]-Physical Therapy CastaliaStart: 11-10-2021 End: 89-16-5928sozwzmwknaKalj Hamilton Other [facility] Other start: 52-30-6906Mgryfn follow up visit related to original pxDale [facility] ([facility] NeurosurgeryStart: 10-28-2021 End: 22-07-9575qnsaykbqezBJD JANENE LOUANNFacility:I6Cdaia: 10-02-2021 End: 48-12-7917rquwhgppavBYD JANENE LOUANNFacility:L6Uaqtj: 09-29-2021 End: 45-54-0688saalfypnjyJezs Hamilton Other [facility] Other start: 19-70-0631Shtjox follow up visit related to original pxDale [facility] ([facility] NeurosurgeryStart: 08-30-2021 End: 31-69-8522pzgohokxkkYncr Hamilton Other [facility] Other start: 58-60-5875Oawkzj follow up visit related to original pxDale [facility] ([facility] NeurosurgeryStart: 11-29-7544Drkhnghxz to same day surgery centerDale [facility] CtrStart: 08-12-2021 End: 64-41-7246upaxxqhrtiWiyb Braun Other [employer] Other start: 08-23-2018 End: 14-39-2413Qqyemtrlqa and management of inpatientSana Merino Facility:[facility] Procedures DateProcedureProcedure DetailPerforming ClinicianStart: 02-05-2025 End: 56-53-1787Cmbkbcigorsvr of current medicationsJoshua Petersen DMD Work Phone: Start: 02-05-2025 End: 31-87-1506ayjh hygiene instructionsJoshua Petersen DMD Work Phone: Start: 02-05-2025 End: 47-24-2018pcims-based composite - two surfaces, posteriorKjose Petersen DMD Work Phone: Start: 12-30-2024 End: 40-12-5072lazz buildup, including any pins when requiredJoshua Petersen DMD Work Phone: Start: 12-30-2024 End: 52-64-0535Qrqdyvwbkjisr of current medicationsJoshua Petersen DMD Work Phone: Start: 12-30-2024 End: 07-72-5424vznrpxqfsr therapy, anterior tooth (excluding final yarsanism) Joshua Petersen DMD Work Phone: Start: 12-30-2024 End: 60-15-0155dhlf hygiene instructionsJoshua Petersen DMD Work Phone: Start: 50-81-9786AGH CBC WITH AUTO DIFFGeneric External Data ProviderStart: 12-02-2024 End: 51-07-6236RlzuzzAcbcl Kanani DMD Work Phone: Start: 12-02-2024 End: 46-34-5252ovdfxceqp - four radiographic imagesJoshua Petersen DMD Work Phone: Start: 12-02-2024 End: 30-91-8500Dqerrg of stomachJoshua Petersen DMD Work Phone: Start: 12-02-2024 End: 44-02-1677Yehncjuqvtxqf of current medicationsJoshua Petersen DMD Work Phone: Start: 12-02-2024 End: 27-89-0319nzxmynymmd, erupted tooth or exposed root (elevation and/or forceps removal)Joshua Petersen DMD Work Phone: Start: 12-02-2024 End: [id number] - periapical each additional radiographic imageJoshua Petersen DMD Work Phone: Start: 12-02-2024 End: 90-98-7727vccfopkrr - periapical first radiographic imageJoshua Petersen DMD Work Phone: Start: 12-02-2024 End: 11-29-5743ftrx hygiene instructionsJoshua Petersen DMD Work Phone: Start: [id number] ROZ PERF SPECT REST STRGeneric External Data ProviderStart: 27-36-6042Opboagizur glycosylated Yumiko Castorena DO Work Phone: Start: 66-19-7441VB CHEST 2VGeneric External Data ProviderStart: 82-46-1927AZC CBC WITH AUTO DIFFGeneric External Data Provider Start: 85-72-1847XBD 12-LEADGeneric External Data ProviderStart: 29-86-4002Gspcb hip unilateral with pelvis 2-3 viewsGeneric External Data ProviderStart: 85-67-5496GLW CBC WITH AUTO DIFFLisa Aichholz CONFIGURATION MANAGEMENT ADVISOR Work Phone: Start: 91-99-2449Qqsvbazmmh glycosylated Yumiko Castorena DO Work Phone: Start: 51-17-3848EE LUMBAR SPINE MIN 4VGeneric External Data ProviderStart: 85-95-1511Vhpgkkddpo glycosylated Yumiko Castorena DO Work Phone: start: 59-84-0189ZY LUMBAR SPINE WO CONGeneric External Data ProviderStart: 00-71-1362NUM CBC WITH AUTO DIFFLisa Reddsaulo CONFIGURATION MANAGEMENT ADVISOR Work Phone: Start: 11-01-2023 End: 10-30-1073JfvokobobdjWier Emiz Work Phone: Start: 16-86-7205EW TOMOSYNTHESIS SCREENING BILisa Louann CONFIGURATION MANAGEMENT ADVISOR Work Phone: Start: 47-04-1270PcosqlknxheJqwh Louann CONFIGURATION MANAGEMENT ADVISOR Work Phone: Start: 58-67-9866Hvvtnjq of percutaneous transluminal coronary angioplastyHistory of PTCALisa Louann CONFIGURATION MANAGEMENT ADVISOR Work Phone: Start: 99-27-5464Akomk cultureLisa Emiz Work Phone: Start: 58-97-3562MD ECHO DOPPLER COMPLETEGeneric External Data ProviderStart: 22-34-6840AFZJONNYRCH OF MULTIPLE CORONARY ARTERIES USING OTH CONTRASTEHAB A ELTAHAWYStart: 33-09-5077Clribskthvm observation [Identifier] in Cervix by Cyto stainJanene Lew CONFIGURATION MANAGEMENT ADVISOR Work Phone: History of percutaneous transluminal coronary angioplastyHistory of PTCALisa Karenholz Work Phone: Plan of Treatment DateCare ActivityDetailAuthorStart: 79-63-4119Cbweubpbj for malignant neoplasm of colonNOMS HealthcareStart: 35-12-0585Poidqqhf screeningDiabetes: Retinopathy ScreeningNOMS HealthcareStart: 56-21-7132Wdovm screening for proteinDiabetes: Urine Protein ScreeningNOMS HealthcareStart: 05-05-2025 End: 67-38-8345Wtibkpn encounter procedureNOMS [facility] FM 230Start: 03-19-2025 [facility] Work Phone: Start: 21-47-0982MjmozyWeisbrod [facility] Work Phone: Start: 55-44-6575Burznmi management education, guidance, and counselingDietary management education, guidance, and counseling [facility]tart: 05-03-6748LdctSaint Joseph Hospital Work Phone: Start: 65-92-3210Ffnoclcfdx A1c measurementDiabetes: Hemoglobin Z5VGCDA HealthcareStart: 10-72-9225IbosngSwedish Medical Center Work Phone: Start: 26-08-1740EhluSaint Joseph Hospital Work Phone: Start: 56-74-2557RqjslkSwedish Medical Center Work Phone: Start: 12-16-2024 End: 90-60-3733Qycuxvy encounter xpagshqli54/02/2025 8:30 AM EDT Office Visit [facility] [address] [place] [address] Janene Lew, CONFIGURATION MANAGEMENT ADVISOR [address] [place] [address] [facility] FMStart: 53-06-8320NSFWK-19 Vaccine ( season)COVID-19 Vaccine ( season)NOMS HealthcareStart: 12-15-2024 Influenza vaccinationInfluenza Vaccine (#1)[facility]OMS HealthcareStart: 12-04-2024 End: 98-09-9575Lsanzhr encounter moerfmoxe83/21/2025 8:40 AM EDT Office Visit [facility] [address] [place] [address] Janene Lew, CONFIGURATION MANAGEMENT ADVISOR [address] [place] [address] [facility] FMStart: 86-35-3489Yzveaob management education, guidance, and counselingDietary management education, guidance, and counseling [facility]tart: 12-02-2024 End: 87-24-2138ZpnsSaint Joseph Hospital Work Phone: Start: 11-03-2024 End: 22-27-9517Gzqodaa encounter procedureNOMS [facility] FM 230Comment on above: ArrivedStart: 10-20-2024 End: 67-41-2437Oglfcuk encounter /07/2025 10:30 AM EDT Office Visit [facility] FM [address] [place] [address] Marya Castorena DO [address] [place] [address] [facility] 230Start: 10-04-2024 End: 09-41-6071PV Breast - bilateral ScreeningBilateral screening mammogram Imaging Routine Encounter for screening mammogram for malignant neoplasm of breast Expected: 10/04/2024 (Approximate), Expires: 11/03/2025[facility] Work Phone: Comment on above:Expected: 10/04/2024 (Approximate), Expires: 11/03/2025Start: 63-79-2732Qrkowknyi for malignant neoplasm of breast MammogramNOME HealthcareStart: 69-35-5495Lukazvgiam A1c measurementDiabetes: Hemoglobin Q0XXXRC HealthcareStart: 09-03-2024 End: 05-06-4892Tpisnxz encounter zgiejrclp70/21/2025 9:40 AM EDT Office Visit [facility] [address] [place] [address] Janene Lew NP [address] [place] [address] [facility]OMS [facility] FMStart: 07-15-2024 End: 04-66-2816JN Ankle - left 3 ViewsXR ankle 3+ views left Imaging Routine Acute left ankle pain Expected: 07/15/2024, Expires: 07/15/2025[facility] Work Phone: Comment on above:Expected: 07/15/2024, Expires: 07/15/2025Start: 07-15-2024 End: 21-14-0014JU Foot - left 3 ViewsXR foot 3+ views left Imaging Routine Acute foot pain, left Expected: 07/15/2024, Expires: 07/15/2025NOME HealthcareComment on above:Expected: 07/15/2024, Expires: 07/15/2025Start: 06-19-2024 End: 32-18-3043Kpuodjv encounter /06/2025 10:15 AM EST Office Visit [facility] [address] [place] [address] Marya Castorena, DO [address] [place] [address] [facility] 230Start: 06-16-2024 End: 44-65-6830Acviejq encounter pzjnsgpew00/03/2025 9:15 AM EST Office Visit [facility] [address] [place] [address]-724-3[address] Marya Castorena, DO [address] [place] [address] ArrivedNOMS [facility] 230Comment on above:ArrivedStart: 24-96-8895Dsshvuomsi A1c measurementDiabetes: Hemoglobin N4MWIJWCooper County Memorial Hospital Start: 03-01-8836Txrfg screening for proteinDiabetes: Urine Protein Screening [facility] HealthcareStart: 03-06-2024 End: 346550-lifmwuxnahxhmg D3 [Mass/volume] in Serum or PlasmaVitamin D 25 hydroxy Lab Routine Vitamin D deficiency Expected: 03/06/2024 (Approximate), Expires: 03/06/2025NOME HealthcareComment on above:Expected: 03/06/2024 (Approximate), Expires: 03/06/2025Start: 03-06-2024 End: 89-65-9675VMQ W Auto Differential panel - BloodCBC and differential Lab Routine Coronary arteriosclerosis (CMS/HCC) Stage 3b chronic kidney disease (HCC) (CMS/HCC) Expected: 03/06/2024 (Approximate), Expires: 03/06/2025[facility] Healthcare Work Phone: Comment on above:Expected: 03/06/2024 (Approximate), Expires: 03/06/2025Start: 03-06-2024 End: 96-44-7379Ofltygsvu (Vitamin B12) [Mass/volume] in Serum or PlasmaVitamin B12 Lab Routine Vitamin B12 deficiency Expected: 03/06/2024 (Approximate), Expires: 03/06/2025[facility] HealthcareComment on above:Expected: 03/06/2024 (Approximate), Expires: 03/06/2025Start: 03-06-2024 End: 68-89-1326Dyyvyvhsgwxrc metabolic 2000 panel - Serum or PlasmaComprehensive metabolic panel Lab Routine Primary hypertension (CMS/HCC) Coronary arteriosclerosis ([facility]/HCC) Stage 3b chronic kidney disease (HCC) ([facility]) Lower extremity edema Class 3 severe obesity due to excess calories with serious comorbidity and body mass index (BMI) of 45.0 to 49.9 in adult (CMS/HCC) Vitamin D deficiency Expected: 03/06/2024 (Approximate), Expires: 03/06/2025[facility] HealthcareComment on above:Expected: 03/06/2024 (Approximate), Expires: 03/06/2025Start: 03-06-2024 End: 57-53-5512Tcjoxcon [Mass/volume] in Serum or PlasmaFerritin Lab Routine H/O bariatric surgery Expected: 03/06/2024 (Approximate), Expires: 03/06/2025[facility] HealthcareComment on above:Expected: 03/06/2024 (Approximate), Expires: 03/06/2025Start: 03-06-2024 End: 73-65-7149Ttfg and Iron binding capacity panel - Serum or PlasmaIron level Lab Routine H/O bariatric surgery Expected: 03/06/2024 (Approximate), Expires: 03/06/2025[facility] HealthcareComment on above:Expected: 03/06/2024 (Approximate), Expires: 03/06/2025Start: 03-06-2024 End: 42-92-9686Lqvlv 1996 panel - Serum or PlasmaLipid panel Lab Routine Coronary arteriosclerosis (CMS/HCC) Expected: 03/06/2024 (Approximate), Expires: 03/06/2025[facility] HealthcareComment on above:Expected: 03/06/2024 (Approximate), Expires: 03/06/2025Start: 03-06-2024 End: 26-17-3703Judqrqfyjmob/Creatinine panel in random UrineMicroalbumin / creatinine, urine ratio Lab Routine Primary hypertension (CMS/HCC) Stage 3b chronic kidney disease (HCC) (CMS/HCC) Expected: 03/06/2024 (Approximate), Expires: 03/06/2025[facility] HealthcareComment on above:Expected: 03/06/2024 (Approximate), Expires: 03/06/2025Start: 03-06-2024 End: 76-61-9178Ywywnyywrj complete panel - UrineUrinalysis with reflex microscopic (clean catch) Lab Routine Primary hypertension (CMS/HCC) Stage 3b chronic kidney disease (HCC) (CMS/HCC) Expected: 03/06/2024 (Approximate), Expires: 03/06/2025[facility] HealthcareComment on above:Expected: 03/06/2024 (Approximate), Expires: 03/06/2025Start: 03-06-2024 End: 15-12-9683Vhtecki encounter procedureNOMS CWM FMComment on above:Spinal stenosis of lumbar region [...] index (BMI) of45.0 to 49.9 in adult (CMS/HCC); Bipolar affective disorder, remission status unspecified (CMS/HCC); Generalized anxiety disorder (CMS/HCC); Vitamin D deficiency; Vitamin B12 deficiency; H/O bariatric surgeryStart: 02-19-2024 End: 90-93-0422Grikuwz encounter dmzpenzmx92/05/2024 9:30 AM EST Office Visit [facility] [address] [place] [phone] Marya Castorena DO [address] [place] [address] [facility] 230Start: 36-16-0737Vzdbeeire vaccination Influenza Vaccine (#1)[facility] HealthcareComment on above:Postponed from 12/16/2023 (Patient Does Not Have Time)Start: 34-58-1639Explzpvmta A1c measurementDiabetes: Hemoglobin I2TPNME HealthcareStart: 12-05-2023 End: 40-84-0158Wjmlt metabolic 1998 panel - Serum or PlasmaBasic metabolic panel Lab Routine Left lower quadrant abdominal pain Expected: 12/05/2023 (Approxima te), Expires: 12/04/2024N[facility] HealthcareComment on above:Expected: 12/05/2023 (Approximate), Expires: 12/04/2024Start: 12-05-2023 End: 24-02-4246MLZ W Auto Differential panel - BloodCBC and differential Lab Routine Left lower quadrant abdominal pain Expected: 12/05/2023 (Approximate), Expires: 12/04/2024[facility] HealthcareComment on above:Expected: 12/05/2023 (Approximate), Expires: 12/04/2024Start: 12-05-2023 End: 04-43-4332ZY Abdomen Single viewXR ABDOMEN 2 VIEW Imaging Routine Left lower quadrant abdominal pain Expected: 12/05/2023, Expires:12/04/2024[facility] Work Phone: Comment on above:Expected: 12/05/2023, Expires: 12/04/2024Start: 12-05-2023 End: 93-25-8565Aavhrpu encounter tyuecchtx99/21/2024 8:40 AM EDT Office Visit [facility] [address] [place] [address] Janene Lew NP [address] [place] [address] Morbid (severe) obesity due to excess calories (CMS/HCC); Body mass index (BMI) 45.0-49.9, adult (CMS/HCC)[facility] FMComment on above: Morbid (severe) obesity due to excess calories (CMS/HCC); Body mass index (BMI) 45.0-49.9, adult (CMS/HCC)Start: 22-42-3200SzvqssjatMarymount Hospitaltart: 55-53-2999AqbrrwqvkMarymount Hospitaltart: 25-50-5143Tfxqadhw to nephrologistMarymount Hospitaltart: 72-19-0051Vhjdrtjv admissionMarymount Hospitaltart: 05-17-2023 Bacteria identified in Urine by CultureMarymount Hospitaltart: 95-81-6850FCfK/Tdap/Td Vaccines (2 - Td or Tdap)DTaP/Tdap/Td Vaccines (2 - Td or Tdap)[facility] HealthcareStart: 90-23-9207Rtkxnwnci for malignant neoplasm of cervix Pap SmearRIVERTON HOSPITAL HealthcareStart: 44-74-6841Kfvticocv for malignant neoplasm of cervixHPV/CotestNOMS HealthcareStart: 22-58-3010JXR Vaccines (1 of 1 - Standard series)MMR Vaccines (1 of 1 - Standard series)[facility] HospitalStart: 1970 Screening for malignant neoplasm of colonNOME Healthcare Breast - bilateral ScreeningThe University Of Toledo Medical CenterPatient EducationSelect Medical [facility] Work Phone: Patient referralTrinity Health System West Campus Work Phone: Renal function 1999 panel - Serum or PlasmaThe University Of Toledo Medical CenterRenal function 1999 panel - Serum or PlasmaThe University Of Toledo Medical CenterRenal function 1999 panel - Serum or [facility] Immunizations Immunization DateImmunizationNotesCare TangwodwDejfrtho10-98-4583PAFR-AZH-8 (COVID-19) vaccine, mRNA, spike protein, LNP, PF, saravanan-sucrose, 30 mcg/0.3 mL Marya Petznick DO Work Phone: NONorth [facility] HospitalThzmyplonm59-49-4380Wxyvjpfs, trivalent, recombinant, injectable influenza vaccine, preservative freeAllison Petznick DO Work Phone: NON[facility] HospitalHfnwjqyznh41-57-6236owvxngrzw virus vaccine, unspecified formulationAllison Petznick DO Work Phone: NON[facility] HospitalVmxmbscubx51-38-9118vyjwywera, injectable, quadrivalent, preservative freeLisa Aichholz CONFIGURATION MANAGEMENT ADVISOR Work Phone: [facility] HospitalTssjgysdaw67-09-2088asobsencn virus vaccine, unspecified formulationLisa Aichholz CONFIGURATION MANAGEMENT ADVISOR Work Phone: [facility] HospitalToortfvzbo48-18-5442yqxjqomnq A and hepatitis B vaccineLisa Aichholz CONFIGURATION MANAGEMENT ADVISOR Work Phone: [facility] HospitalPyoexgqzjy82-13-0576zyoxqp vaccine recombinant Janene Aichholz CONFIGURATION MANAGEMENT ADVISOR Work Phone: [facility] HospitalCabaxhyqne33-09-1045libtxygnr A and hepatitis B vaccineLisa Aichholz CONFIGURATION MANAGEMENT ADVISOR Work Phone: [facility] HospitalSypkzsmqre42-30-3708tcnvrvxrx A and hepatitis B vaccineLisa Aichholz CONFIGURATION MANAGEMENT ADVISOR Work Phone: [facility] HospitalXyvlmfpdwb10-12-1599byougcgqp, injectable, quadrivalent, preservative freeLisa Aichholz CONFIGURATION MANAGEMENT ADVISOR Work Phone: [facility] HospitalYfulfjqmpk35-94-8138vkwpmep toxoid, reduced diphtheria toxoid, and acellular pertussis vaccine, adsorbedLisa Aichholz CONFIGURATION MANAGEMENT ADVISOR Work Phone: [facility] HospitalWkhhvhrorn26-64-9363ztxksq vaccine recombinant Janene Aichholz CONFIGURATION MANAGEMENT ADVISOR Work Phone: [facility] HospitalVmlkaswdxw45-32-2420EJSTV-79 mRNA, Comirnaty (Pfizer)Janene Aichholz Work Phone: [facility]01-31-2022Pfizer Purple Cap SARS-CoV-2 VaccinationLisa Aichholz CONFIGURATION MANAGEMENT ADVISOR Work Phone: [phone] [place], [place] [address]Fxrpvelpjy55-44-1903WGPJN-19 mRNA, Comirnaty (Pfizer)Janene Aichholz Work Phone: [phone] [place], [place] 7956105-04-2021Pfizer Purple Cap SARS-CoV-2 VaccinationLisa Aichholz CONFIGURATION MANAGEMENT ADVISOR Work Phone: [phone] [place], [place] [address]Dzosiihjkf62-97-6869CQRHG-17 mRNA, Comirnaty (Pfizer)Janene Aichholz Work Phone: [phone] [place], [place] 7956111-25-2020influenza, injectable, quadrivalent, preservative freeLisa Aichholz CONFIGURATION MANAGEMENT ADVISOR Work Phone: [phone] [place], [place] [address]Edseanmyuu29-20-5018okmqyvfhsxda polysaccharide vaccine, 23 valentLisa Aichholz CONFIGURATION MANAGEMENT ADVISOR Work Phone: [phone] [place], [place] [address]Anlasvsyyb74-90-4124yrtepssdr, seasonal, injectableLisa Aichholz CONFIGURATION MANAGEMENT ADVISOR Work Phone: [phone] [place], [place] [address]Bfrlxzcpki57-93-3323ndefjctfdrri polysaccharide vaccine, 23 valentLisa Aichholz CONFIGURATION MANAGEMENT ADVISOR Work Phone: [phone] [place], [place] [address]Jxqdungxzw01-95-9525fsdkzhiuw, injectable, quadrivalent, preservative freeLisa Aichholz Work Phone: [phone] [place], [place] [address]6110-18-2019influenza, injectable, quadrivalent, contains preservativeDale Hamilton Other [employer] Other [id number], injectable, quadrivalent, preservative freeLisa Aichholz Work Phone: [phone] [place], [place] [address]211-30-2018influenza, injectable, quadrivalent, contains preservativeDale Hamilton Other [employer] Other 10636706-21-1592gcptzgzcy, injectable, quadrivalent, preservative freeLisa Aichholz CONFIGURATION MANAGEMENT ADVISOR Work Phone: noNorth [facility] City HospitalMuxzwwnazp64-96-0239negejcsoywyx conjugate vaccine, 13 valentLisa Aichholz CONFIGURATION MANAGEMENT ADVISOR Work Phone: noME Vmhaxjxavo05-66-3318ghskndtdetej polysaccharide vaccine, 23 valentLisa Aichholz CONFIGURATION MANAGEMENT ADVISOR Work Phone: noME Healthcare Payers DatePayer CategoryPayerPolicy [id number] Health [id number] 73-01-2900TtmsMesilla [facility] Hospital Member Subscriber Plan / Payer (Effective 2023-Present) Name: SahraNithiny Relation to Subscriber: Self Name: Sherly Humphreys Payer ID: Not on file Type: Not on file Address: [address] [place] [id number] 17-28-8653Tguomvd Health InsuranceUNAITKIN [place] [address].2.840.0499[id number] 70-71-1478Yfbcldv5.2.840.586737.1.13.693.2.7.3.089311.75558-28-8917Ruachpk [id number]-0bw2xfbvmkho39-76-1942Lidp-sir [id number] 2.16.840.8.898750.56096987-92-8898Kzkq-dvu97[id number] 2.16.840.1.469007.3.579.2.88947-34-6128Qvvvrjt0039693 2.16.840.1.330100.3.579.2.48358-50-4108Zndzbhn4225333 2.16.840.1.263045.3.579.[id number] 2.16.840.1.287731.3.579.2.33077-39-7327Dhxngvs0022061 2.16.840.1.193446.3.579.2.14118-84-8606Hdizgir3790187 2.16.840.1.605695.3.579.2.15619-56-6106Qbbbgix8773175 2.16.840.1.486022.3.579.2.43445-93-1262Tupzgms8350313 2.16.840.1.187074.3.579.2.95869-92-5544Chlprhh0104691 2.16.840.1.116036.3.579.2.98742-12-9455Xsjettl5548009 2.16.840.1.653491.3.579.2.09985-53-6778Cysesuq6815182 2.16.840.1.608625.3.579.2.12162-16-0695Znqgocm2053206 2.16.840.1.410310.3.579.2.29823-25-8225Fvyiteh6364669 2.16.840.1.665698.3.579.2.33846-54-4614Uyuaccb5541221 2.16840.1.024136.3.579.2.18921-96-1760Qchjimf8496398 2.16840.1.431728.3.579.2.31572-60-4887Fpiwyex1656834 2.16840.1.763944.3.579.2.49898-45-2347Oqudecw2988851 2.840.1.619193.3.579.2.49225-13-2552Irjaxwt8721789 2.840.1.855643.3.579.2.93872-69-9593Xaazdvs13253700 2.840.1.765721.3.579.2.34524-44-0239Fiqpfqm17418475 2.0.1.309949.3.579.2.495248-23-4379Akpktwi9605711 2.0.1.207204.3.579.2.417635-16-4535Qfiadwd5845204 2..1.613043.3.579.2.019574-56-5124Uwkhjqx4362109 2.0.1.058977.3.579.2.550825-22-3089Yuchiox9151304 2..1.345536.3.579.2.273119-19-2524Paziprv8927406 2.0.1.130431.3.579.2.727042-74-9700Vwyjgvl3675078 2.0.1.568200.3.579.2.380413-13-0750Hiacnmm8088355 2.840.1.690382.3.579.2.809122-97-3746Ylkgzmq298628506 2.840.1.190573.3.579.2.62609-67-8819Fogasib90695605 2.0.1.494632.3.579.2.99196-75-8112Nakkrcn Health [id number] 2.16840.7.734939.2[id number] 2.0.1.274018.19Medicaid Anthem [place] [id number] Health [id number] 2.0.1.310587.19UnknownAnthem /[id number] s3al72m1-0717-2i8w-2109-c70z5r54336kKelqemv32123796 2.0.1.047367.3.579.2.850Mcmmzqt60120672 2.0.1.354595.3.579.2.531 Ommdmmr90439052 2.0.1.628568.3.579.2.531 Social History DateTypeDetailFacilityUnknown if ever smokedNort [employer] Corporation Other start: 05-02-2023 End: 17-70-1290Dqg [facility]igned At [facility] HealthcareStart: 08-12-2021 End: 22-84-6001Gqsnbhq smoking status NHISNever smoked tobacco (finding) [facility] CenterStart: 43-83-7155Rwl Assigned At [facility]tart: 72-23-9762Seiosto use and exposure Smokeless tobacco non-userNOMS HealthcareStart: 12-05-2023 End: 00-94-3425Vtovzbrhu beverage intakeLifetime non-drinker (finding)[facility] HealthcareStart: 05-02-2023 End: 93-75-8914Jgsfzry of Social functionNOMS HealthcareWithin the last year, have you been afraid of your partner or ex-partner?NoNOMS HealthcareAre you now , , , , never or living with a partner? Never marriedNOMS HealthcareHow often to you have a drink containing alcohol? NeverNOMS HealthcareStart: 90-69-3091Nzk many standard drinks containing alcohol do you have on a typical day?Patient does not drinkNOMS HealthcareHow hard is it for you to pay for the very basics like food, housing, medical care, and heatingVery hardNOMS HealthcareDo you feel stress - tense, restless, nervous, or anxious, or unable to sleep at night because yourmind is troubled all the time - these days [OSQ]Rather muchNOMS Healthcare(I/We) worried whether (my/our) food would run out before (I/we) got money to buy more.Sometimes trueNOMS Healthcare Start: 64-11-3076Ykdarmd Commentcaffeine: coffee, soda/popNOMS HealthcareStart: 62-66-4204Xwe assigned at birthNot on fileNOMS HealthcareSexFemale (finding) [facility] CenterHow hard is it for you to pay for the very basics like food, housing, medical care, and heatingHardNOMS HealthcareDo you feel stress - tense, restless, nervous, or anxious, or unable to sleep at night because yourmind is troubled all the time - these days [OSQ]To some extentNOMS Healthcare(I/We) worried whether (my/our) food would run out before (I/we) got money to buy more.Often trueNOME HealthcareStart: 91-87-3260Ldjlpmn intake Alcohol Use [facility]tart: 83-18-7148Vluugzh use and exposureNon-Smoking Tobacco Use [facility] Hospitalexual OrientationStraight or heterosexualSaint Joseph Hospital Work Phone: Start: 46-94-5620Ldvwax identityFemalSouthlake Center for Mental Healthtart: 70-74-4486Kurswrmrq beverage intakeEx-drinker (finding)[facility] HealthcareNEGATED: Highlighted rowStart: NINFHistory of tobacco usePassive smokerNOMS HealthcareNEGATED: Highlighted rowStart: 40-26-8587Vzquyhi smoking status NHISNever smokerSaint Joseph HospitalNEGATED: Highlighted rowStart: 65-98-3776Xhevpgt of tobacco useCurrent non-smokerSaint Joseph HospitalNEGATED: Highlighted rowStart: 12-30-2024 End: 51-75-1462Dfdlrub smoking status NHISUnknown if ever smokedSaint Joseph Hospital Medical Equipment Procedure CodeEquipment CodeEquipment Original TextEquipment IdentifierDatesOnce a day Use as [id number]: 07-02-2023 End: 48-11-3749Riji [id number]: 11-19-2023 End: 88-57-7943Memcgkcq bg levels once a [id number]: 13-60-5524Jwvpnqiu bg levels once a [id number]: 11-03-2024 Goals DatePatient GoalDesired Activity/State Functional Status UrguMtbttxxvtvCmrulfKaqvbpmf34-44-5781Mrkex score [AUDIT-C]0 11/18/2024 5:27 PM EDT Mychart, GenericNOMS Tmfwvbjxul64-79-0483Bry often do you have a drink containing alcohol?Never 11/18/2024 5:27 PM EDT Mychart, Generic NeverNOMS Qpoivxhfwg54-54-4295Rfangbuinp statusPatient does not drink 11/18/2024 5:27 PM EDT Mychart, Generic Patient does not drinkCooper County Memorial HospitalYruvuivmad23-50-0280Tny often do you have 6 or more drinks on 1 occasion?Never 11/18/2024 5:27 PM EDT Mychart, Generic NeverNOMS Dhtkxmmhrg80-46-3240Wfoikjz Health Questionnaire 2 item (PHQ- 2) [Reported][facility] HospitalSokkvpeqsw91-96-8276Rkhzdur Health Questionnaire 2 item (PHQ- 2) [Reported][facility] HospitalPpcekqomvs19-23-0165Euvyizi Health Questionnaire 2 item (PHQ- 2) [Reported][facility] HospitalTtznhzcufb54-78-2595Gwrgwuzaeq statusPatient at Baseline [facility] Work Phone: 1(454) 324-145005-30-2024How difficult have these problems made it for you to do your work, take care of things at home, or get along with other people?Not difficult at all 09/13/2023 9:03 AM Lili Enriquez MA Not difficult at [facility]yjgmbxonr95-91-4805Nwsfxsq Health Questionnaire 2 item (PHQ-2) [Reported][facility] Mental Status ZmbjPmgjmpfamdSqnfffMdohgxig90-76-3932Pjylapqec functionCognitive Status [facility] Work Phone: Clinical Notes 08-30-2021 to 02-05-2025 Note Date & [id number] Evaluation note* Type Assessment Date assessment Body mass index [BMI] 40.0-44.9, adult [facility] Work Phone: 1(843) 589-261010-23-2025 History of Present illness Narrative* Encounter Date Complaint History Of Prese nt Illness fill fill [facility] Work Phone: 1(114) 872-422410-23-2025 Instructions* Date Instruction Additional Infor elio Dietary management e ducation, guidance, and counseling Related to Body mass index [BMI] 40.0-44.9, adult [facility] Work Phone: 1([phone]) 977-594009-16-2025 History of Present illness Narrative* Encounter Date Complaint History Of Prese nt Illness Endo Endo [facility] Work Phone: 1(729) 990-978008-29-2025 Note- proceed with coronary angiogram, discussed risks including stroke, IA, . Patient agreeable to proceed. No associated orders from this encounter found during lookback period of 72 hours.[facility]08-19-2025 Evaluation note* Type Assessment Date assessment Body mass index [BMI] 39.0-39.9, adult [facility] Work Phone: 1(655) 908-442608-19-2025 History of Present illness Narrative* Encounter Date Complaint History Of Prese nt Illness Periodic exam periodic exam [facility] Work Phone: 1([phone]) 177-384508-19-2025 Instructions* Date Instruction Additional Infor matelizabeth Dietary management e ducation, guidance, and counseling Related to Body mass index [BMI] 39.0-39.9, adult [facility] Work Phone: 1(117) 404-806808-13-2025 Evaluation note* Diagnosis Onset Date Resolution Status Admit Date Diabetic nephropathy associated with typ e 2 diabetes mellitus acuteAugust 2024 9:38amHyperkalemiaacuteAugust 2024 9:38am HyperuricemiaacuteAugust 2024 9:38amHypomagnesemiaacuteAugust 2024 9:38amIron deficiencyacuteAugust 2024 9:38amLocalized edemaacuteAugust 2024 9:38amMorbid obesityacuteAugust 2024 9:38amStage 3b chronic kidney diseaseacuteAugust 2024 9:38amVitamin B12 deficiencyacuteAut 2024 9:38amVitamin D deficiencyacuteAugust 2024 9:38amHypertensive nephropathyresolvedAugust 2024 9:38amHypertensionacuteSept2024 8:42amIntractable back painacuteSeptember 2024 8:42amMorbid obesityacute Bambi 2024 8:42amStage 3b chronic kidney diseaseacuteSeptember 2024 8:42am [facility] Work Phone: 1(847) 392-654708-13-2025 Evaluation note* Diagnosis Onset Date Resolution Status Admit Date Diabetic nephropathy associated with typ e 2 diabetes mellitus acuteAugust 2024 9:38amHyperkalemiaacuteAugust 2024 9:38am HyperuricemiaacuteAugust 2024 9:38amHypomagnesemiaacuteAugust 2024 9:38amIron deficiencyacuteAugust 2024 9:38amLocalized edemaacuteAugust 2024 9:38amMorbid obesityacuteAugust 2024 9:38amStage 3b chronic kidney diseaseacuteAugust 2024 9:38amVitamin B12 deficiencyacuteAugust 2024 9:38amVitamin D deficiencyacuteAugust 2024 9:38amHypertensive nephropathyresolvedAugust 2024 9:38amHypertensionacuteSept2024 8:42amIntractable back painacuteSept2024 8:42amMorbid obesityacute December 16, 2024 8:42amStage 3b chronic kidney diseaseacuteSept2024 8:42amCoronary artery diseaseacuteOctober 2024 9:08amDiabetic nephropathy associated with type 2 diabetes mellitusacuteOctober 2024 9:08amHypertensionacuteOctober 2024 9:08amIntractable back painacute February 10, 2025 9:08amMorbid obesityacuteOctober 2024 9:08amRLS (restless legs syndrome)acuteOctober 2024 9:08amStage 3b chronic kidney diseaseacuteOctober 2024 9:08am [facility] Work Phone: [phone] History of Present illness Narrative* Marya Castorena, [...] index (BMI) of36.0 to 36.9 in adult ([facility]) Type 2 diabetes mellitus with other circulatory complications ([facility]) Acute foot pain, left Acute left [...] q7 days SC (7.5 MG/0.5ML SOAJ) Labs [facility] HEMOGLOBIN A1C/HEMOGLOBIN.TOTAL:MFR:PT:BLD:QN: 5.2 Outpatient prescription The ASCVD [...] disease, without long-term current use of insulin ([facility]) During the appointment today all [...] index (BMI) of36.0 to 36.9 in adult ([facility]) Type 2 diabetes mellitus with other circulatory complications ([facility]) - Primary Other Visit Diagnoses Type 2 diabetes mellitus with stage 4 chronic kidney disease, without long-term current use of insulin (HCC) Type 2 diabetes mellitus without complication, without long-term current use of insulin ([facility]) Relevant Medications Blood Glucose Monitoring Suppl (True [...] in leg swelling. LANCETS (ONETOUCH DELICA PLUS [id number]) [facility] Fsbs bid I have reviewed and reconciled the history and medication list with the patient today. documented in this encounterCooper County Memorial [id number] NoteBELLEVUE [facility] Note Chief Complaint: Patient is here today for surgery clearance. Patient states they found a problem while doing her pre op testing. 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 Patient complains of GARNER with walking really [...] Disp: , Rfl: sacubitril-valsartan (more content not included)...[facility]05-21-2025 History of Present illness Narrative* LILI ASKEW - 09/03/2024 9:40 AM EDT Sore [...] in the last year: no Specialist: Shalini, [facility] Cardiology, Ama[place], Dr Huffman HCPOA/Living Will: [...] improvement. Hypertensive end-organ damage includes kidney disease, CAD/IA and heart failure. There is no history [...] 30 mg, Daily Lancets (OneTouch Delica Plus [id number]) misc Fsbs bid metoprolol succinate XL (TOPROL-XL) [...] pain Clostridioides difficile diarrhea 07/02/2023 Coronary arteriosclerosis ([facility]) 04/30/2023 COVID-19 Degenerative disc disease, [...] Nephrolithiasis 07/02/2023 URIEL (obstructive sleep apnea) 04/30/2023 [id number] condition Restless leg syndrome Seasonal allergies 04/30/2023 [...] Problem List Items Addressed This Visit Hypertension ([facility]) Please check blood pressure daily [...] without long-term current use of insulin (HCC) ([facility]) Check blood sugars daily, notify [...] Pt is managed by dr castorena Hyperlipidemia ([facility]) On statin therapy as well as fenofibrate Check labs yearly and prn dose changes Encounter for screening mammogram for malignant neoplasm of breast Relevant Orders Bilateral screening mammogram Chronic diastolic heart failure ([facility]) Follows with cardiology Current meds: statin, lasix, entresto, b seema, and amlodipine Recommend daily weight, limit sodium, if weight increases by more than 3 pounds in 24 hours notify cardiology Stage 3b chronic kidney disease (HCC) ([facility]) Is established with nephrology for mgmt/monitoring Continue to keep blood pressure and DM at goal Class 2 severe obesity due to excess calories with serious comorbidity and body mass index (BMI) of38.0 to 38.9 in adult ([facility]) Discussed with patient their BMI [...] - 09/03/2024 6:39 AM EDTAssociated Problem(s): Hyperlipidemia ([facility]) On statin therapy as well as fenofibrate Check labs yearly and prn dose changes * Janene Lew NP - 09/03/2024 6:39 AM EDTAssociated Problem(s): Type 2 diabetes mellitus with stage 3a chronic kidney disease, without long-term current use of insulin ([facility]) ([facility]) Check blood sugars daily, notify [...] (BMI) of 38.0 to 38.9 in adult ([facility]) Discussed with patient their BMI [...] ASA, statin, b seema documented in this encounterCooper County Memorial [id number] Instructions* Patient Instructions* Janene Lew NP - 09/03/2024 9:[address] Rebolledo if we should change to Vit D2 once a week No other changes in meds or doses documented in this encounterCooper County Memorial [id number] History of Present illness Narrative* Janene Lew NP - 07/15/2024 12:19 PM EDT Contact provider, had a fall the other day on porch, now left ankle and foot pain, would like an xray documented in this encounterCooper County Memorial [id number] History of Present illness Narrative* Marya Castorena DO - 06/16/2024 9:36 AM ESTAssociated Problem(s): Type 2 diabetes mellitus with other circulatory complications ([facility]) During the appointment today all [...] mg Weekly SC (7.5 MG/0.5ML SOAJ) Labs [facility] HEMOGLOBIN A1C/HEMOGLOBIN.TOTAL:MFR:PT:BLD:QN: 5.5 Outpatient prescription The ASCVD [...] disease, without long-term current use of insulin ([facility]) ([facility]) Relevant Orders POCT glycosylated hemoglobin (Hb A1C) docked device (Completed) Class 2 severe obesity due to excess calories with serious comorbidity and body mass index (BMI) of38.0 to 38.9 in adult ([facility]) - Primary Type 2 diabetes mellitus with other circulatory complications ([facility]) During the appointment today all [...] morning. Do not crush or chew.. LANCETS (EzyInsightsTOUCH DELICA PLUS [id number]) [facility] Fsbs bid METOPROLOL SUCCINATE XL (TOPROL-XL) 12.5 [...] with the patient today. documented in this [facility]11-21-2024 History of Present illness Narrative* Janene Lew NP - 03/06/2024 9:59 AM ESTAssociated Problem(s): Acute non-recurrent pansinusitis Finish atb, fluids, fu if not better * LILI ASKEW - 03/06/2024 9:20 AM EST Pt [...] problems. Hypertensive end-organ damage includes kidney disease, CAD/IA and heart failure. Identifiable causes of hypertension [...] mononitrate ER (IMDUR) 30 mg, Daily Lancets (Pareto Networksuch Delica Plus [id number]) misc Fsbs bid metoprolol succinate XL (TOPROL-XL) [...] pain Clostridioides difficile diarrhea 07/02/2023 Coronary arteriosclerosis ([facility]) 04/30/2023 COVID-19 Degenerative disc disease, [...] herniation 07/02/2023 Microscopic hematuria 04/30/2023 Migraine headache (CMS/[facility]) 04/30/2023 Myalgia Nephrolithiasis 07/02/2023 URIEL (obstructive sleep apnea) 04/30/2023 [id number]-12 condition Restless leg syndrome Seasonal allergies 04/30/2023 Spinal stenosis of lumbar region at multiple levels 04/30/2023 Spinal stenosis of thoracolumbar region 04/30/2023 Stage 3 chronic kidney disease due to type 2 diabetes mellitus (HCC) ([facility]) 04/30/2023 Swelling of both lower extremities [...] and they will give new mask Hypertension ([facility]) - Primary Please check blood pressure daily and record DASH diet Limit caffeine Take medication as directed Contact office if chest pain, pressure, dizziness, shortness of breath, swelling legs Recommend slow position changes Continue current meds Cont ASA, statin, b seema Relevant Orders Comprehensive metabolic panel Urinalysis with reflex microscopic (clean catch) Microalbumin / creatinine, urine ratio Coronary arteriosclerosis ([facility]) Relevant Orders CBC and differential [...] without long-term current use of insulin (HCC) ([facility]) Check blood sugars daily, notify [...] Relevant Orders Iron level Ferritin Bipolar disorder ([facility]) Continue with psych for management of her mental health Generalized anxiety disorder ([facility]) Continue with psych for management of symptoms and meds Stage 3b chronic kidney disease (HCC) ([facility]) Is established with nephrology for [...] index (BMI) of45.0 to 49.9 in adult ([facility]) Has lost approx 64 pounds [...] 6:47 AM ESTAssociated Problem(s): Generalized anxiety disorder ([facility]) Continue with psych for management of symptoms and meds * Janene Lew NP - 03/06/2024 6:47 AM ESTAssociated Problem(s): Bipolar disorder ([facility]) Continue with psych for management of her mental health * Janene Lew NP - 03/06/2024 6:46 AM ESTAssociated Problem(s): Class 3 severe obesity due to excess calories with serious comorbidity and body mass index (BMI) of 45.0 to 49.9 in adult ([facility]) Has lost approx 64 pounds [...] disease, without long-term current use of insulin ([facility]) ([facility]) Check blood sugars daily, notify [...] Will complete her FMLA documented in this [facility]11-21-2024 Instructions* Patient Instructions* Janene Lew NP - 03/06/2024 9:20 AM EST Call CPAP company: see if they need a compliance report, they should be able to down load that for you Keep up great work with diabetes and weight loss documented in this [facility]11-05-2024 History of Present illness Narrative* Marya Castorena DO - 02/19/2024 9:49 AM ESTAssociated Problem(s): Type 2 diabetes mellitus with other circulatory complications ([facility]) During the appointment today all [...] disease, without long-term current use of insulin ([facility]) ([facility]) Class 3 severe obesity due to excess calories with serious comorbidity and body mass index (BMI) of45.0 to 49.9 in adult ([facility]) Type 2 diabetes mellitus with other circulatory complications ([facility]) - Primary During the appointment [...] morning. Do not crush or chew.. LANCETS (EzyInsightsTOUCH DELICA PLUS [id number]) [facility] Fsbs bid METOPROLOL SUCCINATE XL (TOPROL-XL) 12.5 [...] with the patient today. documented in this encounterCooper County Memorial [id number] NoteBELLEVUE CLINIC Cardiology Clinic Note Chief Complaint: [...] S1, S2 present. R (more content not included)...[facility] [id number] History of Present illness Narrative* Janene Lew [...] conditions worsens go to the ER * LILI ASKEW - 12/05/2023 8:40 AM EDT Pt [...] Daily, Do not crush or chew. Lancets (MindQuiltTouch Delica Plus [id number]) misc Fsbs bid metoprolol succinate XL (TOPROL-XL) [...] COVID-19 Degenerative disc disease, lumbar 07/02/2023 Depression (CMS/[facility]) 04/30/2023 Diabetes mellitus, type 2 (CMS/[facility]) 04/30/2023 Dyspnea 07/02/2023 Elevated liver [...] Nephrolithiasis 07/02/2023 URIEL (obstructive sleep apnea) 04/30/2023 [id number]-48 condition Restless leg syndrome Seasonal allergies 04/30/2023 [...] panel CBC and differential documented in this encounterCooper County Memorial [id number] Evaluation note* Encounter Date Diagnosis Assessment Notes [...] - G89.29) Proceed with current treatment plan [facility] Other 03-20-2023 Evaluation note* Encounter Date Diagnosis [...] her spine. She notes prior back surgery [id number] and July 2020. She also notes prior [...] negative findings were considered in medical decision-making. [facility] Other 03-11-2023 Hospital Discharge instructions Additional Instructions [...] bowel control high fever or any other [facility] Work Phone: 1(226) 836-758401-27-2023 Evaluation note* Encounter Date Diagnosis Assessment Notes [...] point. A referral will monty sent to [employer] Other 01-10-2023 Evaluation note* Encounter Date Diagnosis [...] Apr,Morbid obesity (ICD-10 - E66.01)Encouraged weight loss [facility] Other 10-12-2022 Evaluation note* Encounter Date Diagnosis [...] strap. A prescription was sent to the [employer] for new supplies throughout the year, as [...] sleepiness, or poor response to treatment. . 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 Sep,Thoracic myelopathy (ICD-10 - M47.14) [facility] Other 05-17-2022 Evaluation note* Encounter Date Diagnosis [...] Overall she is making a good recovery [facility] [employer] Other consult note* Clinical Note Date No Information [facility] Work Phone: Discharge summary* Clinical Note Date No Information [facility] Work Phone: Evaluation noteNo InformationNortCro[facility] [employer] Other evaluation noteNo assessment information available [facility] Work Phone: Evaluation note* Diagnosis Onset Date Resolution Status Diabetic nephropathy associated with typ e 2 diabetes mellitus acuteHyperuricemiaacuteHypomagnesemiaacuteIron deficiencyacuteLocalized edema acuteMorbid obesityacuteStage 3b chronic kidney diseaseacuteVitamin B12 deficiencyacuteVitamin D deficiencyacuteHypertensive nephropathyresolvedAcute kidney injury superimposed on CKDacuteDiabetic nephropathy associated with type 2 diabetes mellitusacuteAnemia of renal diseaseresolvedHypertensive nephropathy resolved [facility] Work Phone: Evaluation note* Diagnosis Onset Date [...] Vitamin B12 deficiencyacuteVitamin D deficiencyacuteHypertensive nephropathy resolved [facility] Work Phone: Evaluation note* Diagnosis Primary hypertension ([facility])- Primary Unspecified essential hypertension Gastroesophageal reflux disease, unspecified whether esophagitis present Microscopic hematuria Lower extremity edema Edema Type 2 diabetes mellitus without complication, without long-term current use of insulin ([facility]) Stage 3 chronic kidney disease due to type 2 diabetes mellitus (HCC) ([facility]) Mixed hyperlipidemia ([facility]) Mixed hyperlipidemia Migraine without aura and without status migrainosus, not intractable ([facility]) Encounter for screening mammogram for malignant neoplasm of breast Colon cancer screening Special screening for malignant neoplasms, colon BMI 50.0-59.9, adult ([facility]) Heel pain, bilateral Type 2 diabetes mellitus without complication, without long-term current use of insulin ([facility])- Primary History of anuria Stage 3 chronic kidney disease due to type 2 diabetes mellitus (HCC) ([facility]) BMI 50.0-59.9, adult ([facility]) URIEL (obstructive sleep apnea) Obstructive sleep apnea (adult) (pediatric) Primary hypertension ([facility]) Unspecified essential hypertension Chronic diastolic heart failure ([facility]) Chronic diastolic heart failure Depression, unspecified depression type ([facility]) Type 2 diabetes mellitus without complication, without long-term current use of insulin ([facility])- Primary Stage 3 chronic kidney disease due to type 2 diabetes mellitus (HCC) ([facility]) BMI 50.0-59.9, adult ([facility]) Lower extremity edema Edema Dental infection- Primary Type 2 diabetes mellitus with stage 3 chronic kidney disease, without long-term current use of insulin, unspecified whether stage 3a or 3b CKD (HCC) ([facility])- Primary Bipolar affective disorder, remission status unspecified ([facility]) Restless leg syndrome Restless legs syndrome (RLS) URIEL (obstructive sleep apnea) Obstructive sleep apnea (adult) (pediatric) Primary hypertension ([facility]) Unspecified essential hypertension Chronic diastolic heart failure ([facility]) Chronic diastolic heart failure Stage 3 chronic kidney disease due to type 2 diabetes mellitus (HCC) ([facility]) Seasonal allergies Allergic rhinitis, cause unspecified BMI 50.0-59.9, adult ([facility]) Type 2 diabetes mellitus with stage 4 chronic kidney disease, without long-term current use of insulin ([facility])- Primary Type 2 diabetes mellitus without complication, without long-term current use of insulin ([facility]) Left lower quadrant abdominal pain- Primary Morbid (severe) obesity due to excess calories ([facility]) Body mass index (BMI) 45.0-49.9, adult ([facility]) Restless leg syndrome Restless legs syndrome (RLS) Stage 3b chronic kidney disease (HCC) ([facility]) Type 2 diabetes mellitus with other circulatory complications ([facility])- Primary Type 2 diabetes mellitus with stage 4 chronic kidney disease, without long-term current use of insulin ([facility]) Type 2 diabetes mellitus with stage 3a chronic kidney disease, without long-term current use of insulin (HCC) ([facility]) Class 3 severe obesity due to excess calories with serious comorbidity and body mass index (BMI) of45.0 to 49.9 in adult ([facility]) documented in this encounter [facility] HealthcareEvaluation note* Diagnosis Primary hypertension ([facility])- Primary Unspecified essential hypertension Gastroesophageal reflux disease, unspecified whether esophagitis present Microscopic hematuria Lower extremity edema Edema Type 2 diabetes mellitus without complication, without long-term current use of insulin ([facility]) Stage 3 chronic kidney disease due to type 2 diabetes mellitus (HCC) ([facility]) Mixed hyperlipidemia ([facility]) Mixed hyperlipidemia Migraine without aura and without status migrainosus, not intractable ([facility]) Encounter for screening mammogram for malignant neoplasm of breast Colon cancer screening Special screening for malignant neoplasms, colon BMI 50.0-59.9, adult ([facility]) Heel pain, bilateral Type 2 diabetes mellitus without complication, without long-term current use of insulin ([facility] [place])- Primary History of anuria Stage 3 chronic kidney disease due to type 2 diabetes mellitus ([facility]) ([facility]) BMI 50.0-59.9, adult ([facility]) URIEL (obstructive sleep apnea) Obstructive sleep apnea (adult) (pediatric) Primary hypertension ([facility]) Unspecified essential hypertension Chronic diastolic heart failure ([facility]) Chronic diastolic heart failure Depression, unspecified depression type ([facility]) Type 2 diabetes mellitus without complication, without long-term current use of insulin ([facility])- Primary Stage 3 chronic kidney disease due to type 2 diabetes mellitus (HCC) ([facility]) BMI 50.0-59.9, adult ([facility]) Lower extremity edema Edema Dental infection- Primary Type 2 diabetes mellitus with stage 3 chronic kidney disease, without long-term current use of insulin, unspecified whether stage 3a or 3b CKD (HCC) ([facility])- Primary Bipolar affective disorder, remission status unspecified ([facility]) Restless leg syndrome Restless legs syndrome (RLS) URIEL (obstructive sleep apnea) Obstructive sleep apnea (adult) (pediatric) Primary hypertension ([facility]) Unspecified essential hypertension Chronic diastolic heart failure ([facility]/HCC) Chronic diastolic heart failure Stage 3 chronic kidney disease due to type 2 diabetes mellitus (HCC) ([facility]) Seasonal allergies Allergic rhinitis, cause unspecified BMI 50.0-59.9, adult ([facility]) Type 2 diabetes mellitus with stage 4 chronic kidney disease, without long-term current use of insulin ([facility])- Primary Type 2 diabetes mellitus without complication, without long-term current use of insulin ([facility]) Left lower quadrant abdominal pain- Primary Morbid (severe) obesity due to excess calories ([facility] [place]) Body mass index (BMI) 45.0-49.9, adult ([facility]) Restless leg syndrome Restless legs syndrome (RLS) Stage 3b chronic kidney disease (HCC) ([facility]) Type 2 diabetes mellitus with other circulatory complications ([facility])- Primary Type 2 diabetes mellitus with stage 4 chronic kidney disease, without long-term current use of insulin ([facility]) Type 2 diabetes mellitus with stage 3a chronic kidney disease, without long-term current use of insulin ([facility]) ([facility]) Class 3 severe obesity due to excess calories with serious comorbidity and body mass index (BMI) of45.0 to 49.9 in adult ([facility]) Muscle spasm Spasm of muscle documented in this encounter [facility] HealthcareEvaluation note* Diagnosis Primary hypertension ([facility])- Primary Unspecified essential hypertension Gastroesophageal reflux disease, unspecified whether esophagitis present Microscopic hematuria Lower extremity edema Edema Type 2 diabetes mellitus without complication, without long-term current use of insulin ([facility]) Stage 3 chronic kidney disease due to type 2 diabetes mellitus (HCC) ([facility] Mixed hyperlipidemia ([facility]) Mixed hyperlipidemia Migraine without aura and without status migrainosus, not intractable ([facility]) Encounter for screening mammogram for malignant neoplasm of breast Colon cancer screening Special screening for malignant neoplasms, colon BMI 50.0-59.9, adult ([facility]) Heel pain, bilateral Type 2 diabetes mellitus without complication, without long-term current use of insulin ([facility])- Primary History of anuria Stage 3 chronic kidney disease due to type 2 diabetes mellitus ([facility]) ([facility]) BMI 50.0-59.9, adult ([facility]) URIEL (obstructive sleep apnea) Obstructive sleep apnea (adult) (pediatric) Primary hypertension ([facility]) Unspecified essential hypertension Chronic diastolic heart failure ([facility]) Chronic diastolic heart failure Depression, unspecified depression type ([facility]) Type 2 diabetes mellitus without complication, without long-term current use of insulin ([facility])- Primary Stage 3 chronic kidney disease due to type 2 diabetes mellitus (HCC) ([facility]) BMI 50.0-59.9, adult ([facility]) Lower extremity edema Edema Dental infection- Primary Type 2 diabetes mellitus with stage 3 chronic kidney disease, without long-term current use of insulin, unspecified whether stage 3a or 3b CKD (HCC) ([facility])- Primary Bipolar affective disorder, remission status unspecified ([facility]) Restless leg syndrome Restless legs syndrome (RLS) URIEL (obstructive sleep apnea) Obstructive sleep apnea (adult) (pediatric) Primary hypertension ([facility]) Unspecified essential hypertension Chronic diastolic heart failure ([facility]) Chronic diastolic heart failure Stage 3 chronic kidney disease due to type 2 diabetes mellitus (HCC) ([facility]) Seasonal allergies Allergic rhinitis, cause unspecified BMI 50.0-59.9, adult ([facility]) Type 2 diabetes mellitus with stage 4 chronic kidney disease, without long-term current use of insulin ([facility])- Primary Type 2 diabetes mellitus without complication, without long-term current use of insulin ([facility]) Left lower quadrant abdominal pain- Primary Morbid (severe) obesity due to excess calories ([facility]) Body mass index (BMI) 45.0-49.9, adult ([facility]) Restless leg syndrome Restless legs syndrome (RLS) Stage 3b chronic kidney disease (HCC) ([facility]) Type 2 diabetes mellitus with other circulatory complications ([facility])- Primary Type 2 diabetes mellitus with stage 4 chronic kidney disease, without long-term current use of insulin ([facility]) Type 2 diabetes mellitus with stage 3a chronic kidney disease, without long-term current use of insulin (HCC) ([facility]) Class 3 severe obesity due to excess calories with serious comorbidity and body mass index (BMI) of45.0 to 49.9 in adult ([facility]) Primary hypertension ([facility])- Primary Unspecified essential hypertension Spinal stenosis of lumbar region at multiple levels Restless leg syndrome Restless legs syndrome (RLS) URIEL (obstructive sleep apnea) Obstructive sleep apnea (adult) (pediatric) Coronary arteriosclerosis ([facility]) Coronary atherosclerosis of unspecified type of vessel, anvik or graft Stage 3b chronic kidney disease (HCC) ([facility] [place]) Swelling of both lower extremities Lower extremity edema Edema Type 2 diabetes mellitus with stage 3a chronic kidney disease, without long-term current use of insulin (HCC) ([facility]) Class 3 severe obesity due to excess calories with serious comorbidity and body mass index (BMI) of45.0 to 49.9 in adult ([facility]) Bipolar affective disorder, remission status unspecified ([facility]) Generalized anxiety disorder ([facility]) Generalized anxiety disorder Vitamin D deficiency Vitamin B12 deficiency Other B-complex deficiencies H/O bariatric surgery Acute non-recurrent pansinusitis documented in this encounter [facility] HealthcareEvaluation note* Diagnosis Primary hypertension ([facility])- Primary Unspecified essential hypertension Gastroesophageal reflux disease, unspecified whether esophagitis present Microscopic hematuria Lower extremity edema Edema Type 2 diabetes mellitus without complication, without long-term current use of insulin ([facility]) Stage 3 chronic kidney disease due to type 2 diabetes mellitus (HCC) ([facility] [place] Mixed hyperlipidemia ([facility]) Mixed hyperlipidemia Migraine without aura and without status migrainosus, not intractable ([facility]) Encounter for screening mammogram for malignant neoplasm of breast Colon cancer screening Special screening for malignant neoplasms, colon BMI 50.0-59.9, adult ([facility]) Heel pain, bilateral Type 2 diabetes mellitus without complication, without long-term current use of insulin ([facility])- Primary History of anuria Stage 3 chronic kidney disease due to type 2 diabetes mellitus (HCC) ([facility]) BMI 50.0-59.9, adult ([facility]) URIEL (obstructive sleep apnea) Obstructive sleep apnea (adult) (pediatric) Primary hypertension ([facility]) Unspecified essential hypertension Chronic diastolic heart failure ([facility]) Chronic diastolic heart failure Depression, unspecified depression type ([facility]) Type 2 diabetes mellitus without complication, without long-term current use of insulin ([facility])- Primary Stage 3 chronic kidney disease due to type 2 diabetes mellitus (HCC) ([facility]) BMI 50.0-59.9, adult ([facility]) Lower extremity edema Edema Dental infection- Primary Type 2 diabetes mellitus with stage 3 chronic kidney disease, without long-term current use of insulin, unspecified whether stage 3a or 3b CKD (HCC) ([facility])- Primary Bipolar affective disorder, remission status unspecified ([facility]) Restless leg syndrome Restless legs syndrome (RLS) URIEL (obstructive sleep apnea) Obstructive sleep apnea (adult) (pediatric) Primary hypertension ([facility]) Unspecified essential hypertension Chronic diastolic heart failure ([facility]) Chronic diastolic heart failure Stage 3 chronic kidney disease due to type 2 diabetes mellitus (HCC) ([facility]) Seasonal allergies Allergic rhinitis, cause unspecified BMI 50.0-59.9, adult ([facility]) Type 2 diabetes mellitus with stage 4 chronic kidney disease, without long-term current use of insulin ([facility])- Primary Type 2 diabetes mellitus without complication, without long-term current use of insulin ([facility]) Left lower quadrant abdominal pain- Primary Morbid (severe) obesity due to excess calories ([facility]) Body mass index (BMI) 45.0-49.9, adult ([facility]) Restless leg syndrome Restless legs syndrome (RLS) Stage 3b chronic kidney disease (HCC) ([facility]) Type 2 diabetes mellitus with other circulatory complications ([facility])- Primary Type 2 diabetes mellitus with stage 4 chronic kidney disease, without long-term current use of insulin ([facility]) Type 2 diabetes mellitus with stage 3a chronic kidney disease, without long-term current use of insulin ([facility]) ([facility]) Class 3 severe obesity due to excess calories with serious comorbidity and body mass index (BMI) of45.0 to 49.9 in adult ([facility]) Primary hypertension ([facility])- Primary Unspecified essential hypertension Spinal stenosis of lumbar region at multiple levels Restless leg syndrome Restless legs syndrome (RLS) URIEL (obstructive sleep apnea) Obstructive sleep apnea (adult) (pediatric) Coronary arteriosclerosis ([facility]) Coronary atherosclerosis of unspecified type of vessel, anvik or graft Stage 3b chronic kidney disease (HCC) ([facility]) Swelling of both lower extremities Lower extremity edema Edema Type 2 diabetes mellitus with stage 3a chronic kidney disease, without long-term current use of insulin (HCC) ([facility]) Class 3 severe obesity due to excess calories with serious comorbidity and body mass index (BMI) of45.0 to 49.9 in adult ([facility]) Bipolar affective disorder, remission status unspecified ([facility]) Generalized anxiety disorder ([facility]) Generalized anxiety disorder Vitamin D deficiency Vitamin B12 deficiency Other B-complex deficiencies H/O bariatric surgery Acute non-recurrent pansinusitis Restless leg syndrome Restless legs syndrome (RLS) documented in this encounter [facility]* Diagnosis Left lower quadrant abdominal pain- Primary Morbid (severe) obesity due to excess calories ([facility]) Body mass index (BMI) 45.0-49.9, adult ([facility]) Restless leg syndrome Restless legs syndrome (RLS) Stage 3b chronic kidney disease (HCC) ([facility]) documented in this encounter [facility] [...] disease, without long-term current use of insulin ([facility])- Primary documented in this encounter [facility]* Diagnosis Primary hypertension ([facility]) Unspecified essential hypertension documented in this encounter [facility]* Diagnosis Primary hypertension ([facility])- Primary Unspecified essential hypertension Gastroesophageal reflux disease, unspecified whether esophagitis present Microscopic hematuria Lower extremity edema Edema Type 2 diabetes mellitus without complication, without long-term current use of insulin ([facility]) Stage 3 chronic kidney disease due to type 2 diabetes mellitus (HCC) ([facility]) Mixed hyperlipidemia ([facility]) Mixed hyperlipidemia Migraine without aura and without status migrainosus, not intractable ([facility]) Encounter for screening mammogram for malignant neoplasm of breast Colon cancer screening Special screening for malignant neoplasms, colon BMI 50.0-59.9, adult ([facility]) Heel pain, bilateral Type 2 diabetes mellitus without complication, without long-term current use of insulin ([facility])- Primary History of anuria Stage 3 chronic kidney disease due to type 2 diabetes mellitus (HCC) ([facility]) BMI 50.0-59.9, adult ([facility]) URIEL (obstructive sleep apnea) Obstructive sleep apnea (adult) (pediatric) Primary hypertension ([facility]) Unspecified essential hypertension Chronic diastolic heart failure ([facility]) Chronic diastolic heart failure Depression, unspecified depression type ([facility]) Type 2 diabetes mellitus without complication, without long-term current use of insulin ([facility])- Primary Stage 3 chronic kidney disease due to type 2 diabetes mellitus (HCC) ([facility] [place]) BMI 50.0-59.9, adult ([facility]) Lower extremity edema Edema Dental infection- Primary Type 2 diabetes mellitus with stage 3 chronic kidney disease, without long-term current use of insulin, unspecified whether stage 3a or 3b CKD (HCC) ([facility])- Primary Bipolar affective disorder, remission status unspecified ([facility]) Restless leg syndrome Restless legs syndrome (RLS) URIEL (obstructive sleep apnea) Obstructive sleep apnea (adult) (pediatric) Primary hypertension ([facility]) Unspecified essential hypertension Chronic diastolic heart failure ([facility]) Chronic diastolic heart failure Stage 3 chronic kidney disease due to type 2 diabetes mellitus ([facility]) ([facility]) Seasonal allergies Allergic rhinitis, cause unspecified BMI 50.0-59.9, adult ([facility]) Type 2 diabetes mellitus with stage 4 chronic kidney disease, without long-term current use of insulin ([facility])- Primary Type 2 diabetes mellitus without complication, without long-term current use of insulin ([facility]) Left lower quadrant abdominal pain- Primary Morbid (severe) obesity due to excess calories ([facility]) Body mass index (BMI) 45.0-49.9, adult ([facility]) Restless leg syndrome Restless legs syndrome (RLS) Stage 3b chronic kidney disease (HCC) ([facility]) Type 2 diabetes mellitus with other circulatory complications ([facility])- Primary Type 2 diabetes mellitus with stage 4 chronic kidney disease, without long-term current use of insulin ([facility]) Type 2 diabetes mellitus with stage 3a chronic kidney disease, without long-term current use of insulin ([facility]) ([facility]) Class 3 severe obesity due to excess calories with serious comorbidity and body mass index (BMI) of45.0 to 49.9 in adult ([facility]) Primary hypertension ([facility])- Primary Unspecified essential hypertension Spinal stenosis of lumbar region at multiple levels Restless leg syndrome Restless legs syndrome (RLS) URIEL (obstructive sleep apnea) Obstructive sleep apnea (adult) (pediatric) Coronary arteriosclerosis ([facility]) Coronary atherosclerosis of unspecified type of vessel, anvik or graft Stage 3b chronic kidney disease (HCC) ([facility]) Swelling of both lower extremities Lower extremity edema Edema Type 2 diabetes mellitus with stage 3a chronic kidney disease, without long-term current use of insulin (HCC) ([facility]) Class 3 severe obesity due to excess calories with serious comorbidity and body mass index (BMI) of45.0 to 49.9 in adult ([facility]) Bipolar affective disorder, remission status unspecified ([facility]) Generalized anxiety disorder ([facility]) Generalized anxiety disorder Vitamin D deficiency Vitamin B12 deficiency Other B-complex deficiencies H/O bariatric surgery Acute non-recurrent pansinusitis Muscle spasm Spasm of muscle documented in this encounter [facility]* Diagnosis Primary hypertension ([facility])- Primary Unspecified essential hypertension Gastroesophageal reflux disease, unspecified whether esophagitis present Microscopic hematuria Lower extremity edema Edema Type 2 diabetes mellitus without complication, without long-term current use of insulin ([facility]) Stage 3 chronic kidney disease due to type 2 diabetes mellitus (HCC) ([facility]) Mixed hyperlipidemia ([facility]) Mixed hyperlipidemia Migraine without aura and without status migrainosus, not intractable ([facility]) Encounter for screening mammogram for malignant neoplasm of breast Colon cancer screening Special screening for malignant neoplasms, colon BMI 50.0-59.9, adult ([facility]) Heel pain, bilateral Type 2 diabetes mellitus without complication, without long-term current use of insulin ([facility])- Primary History of anuria Stage 3 chronic kidney disease due to type 2 diabetes mellitus (HCC) ([facility]) BMI 50.0-59.9, adult ([facility]) URIEL (obstructive sleep apnea) Obstructive sleep apnea (adult) (pediatric) Primary hypertension ([facility]) Unspecified essential hypertension Chronic diastolic heart failure ([facility]) Chronic diastolic heart failure Depression, unspecified depression type ([facility]) Type 2 diabetes mellitus without complication, without long-term current use of insulin ([facility])- Primary Stage 3 chronic kidney disease due to type 2 diabetes mellitus (HCC) ([facility]) BMI 50.0-59.9, adult ([facility]) Lower extremity edema Edema Dental infection- Primary Type 2 diabetes mellitus with stage 3 chronic kidney disease, without long-term current use of insulin, unspecified whether stage 3a or 3b CKD (HCC) ([facility])- Primary Bipolar affective disorder, remission status unspecified ([facility]) Restless leg syndrome Restless legs syndrome (RLS) URIEL (obstructive sleep apnea) Obstructive sleep apnea (adult) (pediatric) Primary hypertension ([facility]) Unspecified essential hypertension Chronic diastolic heart failure ([facility]) Chronic diastolic heart failure Stage 3 chronic kidney disease due to type 2 diabetes mellitus ([facility]) ([facility]) Seasonal allergies Allergic rhinitis, cause unspecified BMI 50.0-59.9, adult ([facility]) Type 2 diabetes mellitus with stage 4 chronic kidney disease, without long-term current use of insulin ([facility])- Primary Type 2 diabetes mellitus without complication, without long-term current use of insulin ([facility]) Left lower quadrant abdominal pain- Primary Morbid (severe) obesity due to excess calories ([facility]) Body mass index (BMI) 45.0-49.9, adult ([facility]) Restless leg syndrome Restless legs syndrome (RLS) Stage 3b chronic kidney disease (HCC) ([facility]) Type 2 diabetes mellitus with other circulatory complications ([facility])- Primary Type 2 diabetes mellitus with stage 4 chronic kidney disease, without long-term current use of insulin ([facility]) Type 2 diabetes mellitus with stage 3a chronic kidney disease, without long-term current use of insulin ([facility]) ([facility]) Class 3 severe obesity due to excess calories with serious comorbidity and body mass index (BMI) of45.0 to 49.9 in adult ([facility]) Primary hypertension ([facility])- Primary Unspecified essential hypertension Spinal stenosis of lumbar region at multiple levels Restless leg syndrome Restless legs syndrome (RLS) URIEL (obstructive sleep apnea) Obstructive sleep apnea (adult) (pediatric) Coronary arteriosclerosis ([facility]) Coronary atherosclerosis of unspecified type of vessel, anvik or graft Stage 3b chronic kidney disease (HCC) ([facility]) Swelling of both lower extremities Lower extremity edema Edema Type 2 diabetes mellitus with stage 3a chronic kidney disease, without long-term current use of insulin ([facility]) ([facility]) Class 3 severe obesity due to excess calories with serious comorbidity and body mass index (BMI) of45.0 to 49.9 in adult ([facility]) Bipolar affective disorder, remission status unspecified ([facility]) Generalized anxiety disorder ([facility]) Generalized anxiety disorder Vitamin D deficiency Vitamin B12 deficiency Other B-complex deficiencies H/O bariatric surgery Acute non-recurrent pansinusitis Class 2 severe obesity due to excess calories with serious comorbidity and body mass index (BMI) of38.0 to 38.9 in adult ([facility])- Primary Type 2 diabetes mellitus with other circulatory complications ([facility]) Type 2 diabetes mellitus with stage 3a chronic kidney disease, without long-term current use of insulin ([facility]) ([facility]) documented in this encounter [facility] HealthcareEvaluation note* Diagnosis Primary hypertension ([facility])- Primary Unspecified essential hypertension Gastroesophageal reflux disease, unspecified whether esophagitis present Microscopic hematuria Lower extremity edema Edema Type 2 diabetes mellitus without complication, without long-term current use of insulin Stage 3 chronic kidney disease due to type 2 diabetes mellitus (HCC) ([facility]) Mixed hyperlipidemia ([facility]) Mixed hyperlipidemia Migraine without aura and without status migrainosus, not intractable ([facility]) Encounter for screening mammogram for malignant neoplasm of breast Colon cancer screening Special screening for malignant neoplasms, colon BMI 50.0-59.9, adult ([facility]) Heel pain, bilateral Type 2 diabetes mellitus without complication, without long-term current use of insulin- Primary History of anuria Stage 3 chronic kidney disease due to type 2 diabetes mellitus (HCC) ([facility]) BMI 50.0-59.9, adult ([facility]) URIEL (obstructive sleep apnea) Obstructive sleep apnea (adult) (pediatric) Primary hypertension ([facility]) Unspecified essential hypertension Chronic diastolic heart failure ([facility]) Chronic diastolic heart failure Depression, unspecified depression type ([facility]) Type 2 diabetes mellitus without complication, without long-term current use of insulin- Primary Stage 3 chronic kidney disease due to type 2 diabetes mellitus (HCC) ([facility]) BMI 50.0-59.9, adult ([facility]) Lower extremity edema Edema Dental infection- Primary Type 2 diabetes mellitus with stage 3 chronic kidney disease, without long-term current use of insulin, unspecified whether stage 3a or 3b CKD ([facility]) ([facility])- Primary Bipolar affective disorder, remission status unspecified ([facility]) Restless leg syndrome Restless legs syndrome (RLS) URIEL (obstructive sleep apnea) Obstructive sleep apnea (adult) (pediatric) Primary hypertension ([facility]) Unspecified essential hypertension Chronic diastolic heart failure ([facility]) Chronic diastolic heart failure Stage 3 chronic kidney disease due to type 2 diabetes mellitus (HCC) ([facility]) Seasonal allergies Allergic rhinitis, cause unspecified BMI 50.0-59.9, adult ([facility]) Type 2 diabetes mellitus with stage 4 chronic kidney disease, without long-term current use of insulin ([facility])- Primary Type 2 diabetes mellitus without complication, without long-term current use of insulin Left lower quadrant abdominal pain- Primary Morbid (severe) obesity due to excess calories ([facility]) Body mass index (BMI) 45.0-49.9, adult ([facility]) Restless leg syndrome Restless legs syndrome (RLS) Stage 3b chronic kidney disease (HCC) ([facility]) Type 2 diabetes mellitus with other circulatory complications- Primary Type 2 diabetes mellitus with stage 4 chronic kidney disease, without long-term current use of insulin ([facility]) Type 2 diabetes mellitus with stage 3a chronic kidney disease, without long-term current use of insulin ([facility]) ([facility]) Class 3 severe obesity due to excess calories with serious comorbidity and body mass index (BMI) of45.0 to 49.9 in adult Primary hypertension ([facility])- Primary Unspecified essential hypertension Spinal stenosis of lumbar region at multiple levels Restless leg syndrome Restless legs syndrome (RLS) URIEL (obstructive sleep apnea) Obstructive sleep apnea (adult) (pediatric) Coronary arteriosclerosis ([facility]) Coronary atherosclerosis of unspecified type of vessel, anvik or graft Stage 3b chronic kidney disease (HCC) ([facility]) Swelling of both lower extremities Lower extremity edema Edema Type 2 diabetes mellitus with stage 3a chronic kidney disease, without long-term current use of insulin ([facility]) ([facility]) Class 3 severe obesity due to excess calories with serious comorbidity and body mass index (BMI) of45.0 to 49.9 in adult Bipolar affective disorder, remission status unspecified ([facility]) Generalized anxiety disorder ([facility]) Generalized anxiety disorder Vitamin D deficiency Vitamin B12 deficiency Other B-complex deficiencies H/O bariatric surgery Acute non-recurrent pansinusitis Class 2 severe obesity due to excess calories with serious comorbidity and body mass index (BMI) of38.0 to 38.9 in adult ([facility])- Primary Type 2 diabetes mellitus with other circulatory complications Type 2 diabetes mellitus with stage 3a chronic kidney disease, without long-term current use of insulin (HCC) ([facility]) Acute foot pain, left- Primary Acute left ankle pain documented in this encounter [facility] HealthcareEvaluation note* Diagnosis Primary hypertension ([facility])- Primary Unspecified essential hypertension Gastroesophageal reflux disease, unspecified whether esophagitis present Microscopic hematuria Lower extremity edema Edema Type 2 diabetes mellitus without complication, without long-term current use of insulin Stage 3 chronic kidney disease due to type 2 diabetes mellitus (HCC) ([facility]) Mixed hyperlipidemia ([facility]) Mixed hyperlipidemia Migraine without aura and without status migrainosus, not intractable ([facility]) Encounter for screening mammogram for malignant neoplasm of breast Colon cancer screening Special screening for malignant neoplasms, colon BMI 50.0-59.9, adult ([facility]) Heel pain, bilateral Type 2 diabetes mellitus without complication, without long-term current use of insulin- Primary History of anuria Stage 3 chronic kidney disease due to type 2 diabetes mellitus (HCC) ([facility]) BMI 50.0-59.9, adult ([facility]) URIEL (obstructive sleep apnea) Obstructive sleep apnea (adult) (pediatric) Primary hypertension ([facility]) Unspecified essential hypertension Chronic diastolic heart failure ([facility]) Chronic diastolic heart failure Depression, unspecified depression type ([facility]) Type 2 diabetes mellitus without complication, without long-term current use of insulin- Primary Stage 3 chronic kidney disease due to type 2 diabetes mellitus (HCC) ([facility]) BMI 50.0-59.9, adult ([facility]) Lower extremity edema Edema Dental infection- Primary Type 2 diabetes mellitus with stage 3 chronic kidney disease, without long-term current use of insulin, unspecified whether stage 3a or 3b CKD (HCC) ([facility])- Primary Bipolar affective disorder, remission status unspecified ([facility]) Restless leg syndrome Restless legs syndrome (RLS) URIEL (obstructive sleep apnea) Obstructive sleep apnea (adult) (pediatric) Primary hypertension ([facility]) Unspecified essential hypertension Chronic diastolic heart failure ([facility]) Chronic diastolic heart failure Stage 3 chronic kidney disease due to type 2 diabetes mellitus (HCC) ([facility]) Seasonal allergies Allergic rhinitis, cause unspecified BMI 50.0-59.9, adult ([facility]) Type 2 diabetes mellitus with stage 4 chronic kidney disease, without long-term current use of insulin ([facility])- Primary Type 2 diabetes mellitus without complication, without long-term current use of insulin Left lower quadrant abdominal pain- Primary Morbid (severe) obesity due to excess calories ([facility]) Body mass index (BMI) 45.0-49.9, adult ([facility]) Restless leg syndrome Restless legs syndrome (RLS) Stage 3b chronic kidney disease (HCC) ([facility]) Type 2 diabetes mellitus with other circulatory complications- Primary Type 2 diabetes mellitus with stage 4 chronic kidney disease, without long-term current use of insulin ([facility]) Type 2 diabetes mellitus with stage 3a chronic kidney disease, without long-term current use of insulin (HCC) ([facility]) Class 3 severe obesity due to excess calories with serious comorbidity and body mass index (BMI) of45.0 to 49.9 in adult Primary hypertension ([facility])- Primary Unspecified essential hypertension Spinal stenosis of lumbar region at multiple levels Restless leg syndrome Restless legs syndrome (RLS) URIEL (obstructive sleep apnea) Obstructive sleep apnea (adult) (pediatric) Coronary arteriosclerosis ([facility]) Coronary atherosclerosis of unspecified type of vessel, anvik or graft Stage 3b chronic kidney disease (HCC) ([facility]) Swelling of both lower extremities Lower extremity edema Edema Type 2 diabetes mellitus with stage 3a chronic kidney disease, without long-term current use of insulin (HCC) ([facility]) Class 3 severe obesity due to excess calories with serious comorbidity and body mass index (BMI) of45.0 to 49.9 in adult Bipolar affective disorder, remission status unspecified ([facility]) Generalized anxiety disorder ([facility]) Generalized anxiety disorder Vitamin D deficiency Vitamin B12 deficiency Other B-complex deficiencies H/O bariatric surgery Acute non-recurrent pansinusitis Class 2 severe obesity due to excess calories with serious comorbidity and body mass index (BMI) of38.0 to 38.9 in adult ([facility])- Primary Type 2 diabetes mellitus with other circulatory complications Type 2 diabetes mellitus with stage 3a chronic kidney disease, without long-term current use of insulin (HCC) ([facility]) Restless leg syndrome Restless legs syndrome (RLS) documented in this encounter [facility] HealthcareEvaluation note* Diagnosis Primary hypertension ([facility])- Primary Unspecified essential hypertension Gastroesophageal reflux disease, unspecified whether esophagitis present Microscopic hematuria Lower extremity edema Edema Type 2 diabetes mellitus without complication, without long-term current use of insulin Stage 3 chronic kidney disease due to type 2 diabetes mellitus (HCC) ([facility]) Mixed hyperlipidemia ([facility]) Mixed hyperlipidemia Migraine without aura and without status migrainosus, not intractable ([facility]) Encounter for screening mammogram for malignant neoplasm of breast Colon cancer screening Special screening for malignant neoplasms, colon BMI 50.0-59.9, adult ([facility]) Heel pain, bilateral Type 2 diabetes mellitus without complication, without long-term current use of insulin- Primary History of anuria Stage 3 chronic kidney disease due to type 2 diabetes mellitus (HCC) ([facility]) BMI 50.0-59.9, adult ([facility]) URIEL (obstructive sleep apnea) Obstructive sleep apnea (adult) (pediatric) Primary hypertension ([facility]) Unspecified essential hypertension Chronic diastolic heart failure ([facility]) Chronic diastolic heart failure Depression, unspecified depression type ([facility]) Type 2 diabetes mellitus without complication, without long-term current use of insulin- Primary Stage 3 chronic kidney disease due to type 2 diabetes mellitus (HCC) ([facility]) BMI 50.0-59.9, adult ([facility]) Lower extremity edema Edema Dental infection- Primary Type 2 diabetes mellitus with stage 3 chronic kidney disease, without long-term current use of insulin, unspecified whether stage 3a or 3b CKD (HCC) ([facility])- Primary Bipolar affective disorder, remission status unspecified ([facility]) Restless leg syndrome Restless legs syndrome (RLS) URIEL (obstructive sleep apnea) Obstructive sleep apnea (adult) (pediatric) Primary hypertension ([facility]) Unspecified essential hypertension Chronic diastolic heart failure ([facility]) Chronic diastolic heart failure Stage 3 chronic kidney disease due to type 2 diabetes mellitus (HCC) ([facility]) Seasonal allergies Allergic rhinitis, cause unspecified BMI 50.0-59.9, adult ([facility]) Type 2 diabetes mellitus with stage 4 chronic kidney disease, without long-term current use of insulin ([facility])- Primary Type 2 diabetes mellitus without complication, without long-term current use of insulin Left lower quadrant abdominal pain- Primary Morbid (severe) obesity due to excess calories ([facility]) Body mass index (BMI) 45.0-49.9, adult ([facility]) Restless leg syndrome Restless legs syndrome (RLS) Stage 3b chronic kidney disease (HCC) ([facility]) Type 2 diabetes mellitus with other circulatory complications- Primary Type 2 diabetes mellitus with stage 4 chronic kidney disease, without long-term current use of insulin (CMS/HCC) Type 2 diabetes mellitus with stage 3a chronic kidney disease, without long-term current use of insulin (HCC) ([facility]) Class 3 severe obesity due to excess calories with serious comorbidity and body mass index (BMI) of45.0 to 49.9 in adult Primary hypertension (CMS/HCC)- Primary Unspecified essential hypertension Spinal stenosis of lumbar region at multiple levels Restless leg syndrome Restless legs syndrome (RLS) URIEL (obstructive sleep apnea) Obstructive sleep apnea (adult) (pediatric) Coronary arteriosclerosis ([facility]) Coronary atherosclerosis of unspecified type of vessel, anvik or graft Stage 3b chronic kidney disease (HCC) ([facility]) Swelling of both lower extremities Lower extremity edema Edema Type 2 diabetes mellitus with stage 3a chronic kidney disease, without long-term current use of insulin (HCC) ([facility]) Class 3 severe obesity due to excess calories with serious comorbidity and body mass index (BMI) of45.0 to 49.9 in adult Bipolar affective disorder, remission status unspecified ([facility]) Generalized anxiety disorder ([facility]) Generalized anxiety disorder Vitamin D deficiency Vitamin B12 deficiency Other B-complex deficiencies H/O bariatric surgery Acute non-recurrent pansinusitis Class 2 severe obesity due to excess calories with serious comorbidity and body mass index (BMI) of38.0 to 38.9 in adult ([facility])- Primary Type 2 diabetes mellitus with other circulatory complications Type 2 diabetes mellitus with stage 3a chronic kidney disease, without long-term current use of insulin (HCC) ([facility]) Primary hypertension ([facility]) Unspecified essential hypertension documented in this encounter [facility]* Diagnosis Primary hypertension ([facility])- Primary Unspecified essential hypertension Gastroesophageal reflux disease, unspecified whether esophagitis present Microscopic hematuria Lower extremity edema Edema Type 2 diabetes mellitus without complication, without long-term current use of insulin Stage 3 chronic kidney disease due to type 2 diabetes mellitus (HCC) ([facility]) Mixed hyperlipidemia ([facility]) Mixed hyperlipidemia Migraine without aura and without status migrainosus, not intractable ([facility]) Encounter for screening mammogram for malignant neoplasm of breast Colon cancer screening Special screening for malignant neoplasms, colon BMI 50.0-59.9, adult ([facility]) Heel pain, bilateral Type 2 diabetes mellitus without complication, without long-term current use of insulin- Primary History of anuria Stage 3 chronic kidney disease due to type 2 diabetes mellitus (HCC) ([facility]) BMI 50.0-59.9, adult ([facility]) URIEL (obstructive sleep apnea) Obstructive sleep apnea (adult) (pediatric) Primary hypertension ([facility]) Unspecified essential hypertension Chronic diastolic heart failure ([facility]) Chronic diastolic heart failure Depression, unspecified depression type ([facility]) Type 2 diabetes mellitus without complication, without long-term current use of insulin- Primary Stage 3 chronic kidney disease due to type 2 diabetes mellitus (HCC) ([facility]) BMI 50.0-59.9, adult ([facility]) Lower extremity edema Edema Dental infection- Primary Type 2 diabetes mellitus with stage 3 chronic kidney disease, without long-term current use of insulin, unspecified whether stage 3a or 3b CKD ([facility]) ([facility])- Primary Bipolar affective disorder, remission status unspecified ([facility]) Restless leg syndrome Restless legs syndrome (RLS) URIEL (obstructive sleep apnea) Obstructive sleep apnea (adult) (pediatric) Primary hypertension ([facility]) Unspecified essential hypertension Chronic diastolic heart failure ([facility]) Chronic diastolic heart failure Stage 3 chronic kidney disease due to type 2 diabetes mellitus ([facility]) ([facility]) Seasonal allergies Allergic rhinitis, cause unspecified BMI 50.0-59.9, adult ([facility]) Type 2 diabetes mellitus with stage 4 chronic kidney disease, without long-term current use of insulin ([facility])- Primary Type 2 diabetes mellitus without complication, without long-term current use of insulin Left lower quadrant abdominal pain- Primary Morbid (severe) obesity due to excess calories ([facility]) Body mass index (BMI) 45.0-49.9, adult ([facility]) Restless leg syndrome Restless legs syndrome (RLS) Stage 3b chronic kidney disease (HCC) ([facility]) Type 2 diabetes mellitus with other circulatory complications- Primary Type 2 diabetes mellitus with stage 4 chronic kidney disease, without long-term current use of insulin ([facility]) Type 2 diabetes mellitus with stage 3a chronic kidney disease, without long-term current use of insulin ([facility]) ([facility]) Class 3 severe obesity due to excess calories with serious comorbidity and body mass index (BMI) of45.0 to 49.9 in adult Primary hypertension ([facility])- Primary Unspecified essential hypertension Spinal stenosis of lumbar region at multiple levels Restless leg syndrome Restless legs syndrome (RLS) URIEL (obstructive sleep apnea) Obstructive sleep apnea (adult) (pediatric) Coronary arteriosclerosis ([facility]) Coronary atherosclerosis of unspecified type of vessel, anvik or graft Stage 3b chronic kidney disease (HCC) ([facility]) Swelling of both lower extremities Lower extremity edema Edema Type 2 diabetes mellitus with stage 3a chronic kidney disease, without long-term current use of insulin (HCC) ([facility]) Class 3 severe obesity due to excess calories with serious comorbidity and body mass index (BMI) of45.0 to 49.9 in adult Bipolar affective disorder, remission status unspecified ([facility]) Generalized anxiety disorder ([facility]) Generalized anxiety disorder Vitamin D deficiency Vitamin B12 deficiency Other B-complex deficiencies H/O bariatric surgery Acute non-recurrent pansinusitis Class 2 severe obesity due to excess calories with serious comorbidity and body mass index (BMI) of38.0 to 38.9 in adult ([facility])- Primary Type 2 diabetes mellitus with other circulatory complications Type 2 diabetes mellitus with stage 3a chronic kidney disease, without long-term current use of insulin (HCC) ([facility]) Muscle spasm Spasm of muscle documented in this encounter [facility]Evaluation note* Diagnosis Primary hypertension ([facility])- Primary Unspecified essential hypertension Gastroesophageal reflux disease, unspecified whether esophagitis present Microscopic hematuria Lower extremity edema Edema Type 2 diabetes mellitus without complication, without long-term current use of insulin Stage 3 chronic kidney disease due to type 2 diabetes mellitus (HCC) ([facility]) Mixed hyperlipidemia ([facility]) Mixed hyperlipidemia Migraine without aura and without status migrainosus, not intractable ([facility]) Encounter for screening mammogram for malignant neoplasm of breast Colon cancer screening Special screening for malignant neoplasms, colon BMI 50.0-59.9, adult ([facility]) Heel pain, bilateral Type 2 diabetes mellitus without complication, without long-term current use of insulin- Primary History of anuria Stage 3 chronic kidney disease due to type 2 diabetes mellitus (HCC) ([facility]) BMI 50.0-59.9, adult ([facility]) URIEL (obstructive sleep apnea) Obstructive sleep apnea (adult) (pediatric) Primary hypertension ([facility]) Unspecified essential hypertension Chronic diastolic heart failure ([facility]) Chronic diastolic heart failure Depression, unspecified depression type ([facility]) Type 2 diabetes mellitus without complication, without long-term current use of insulin- Primary Stage 3 chronic kidney disease due to type 2 diabetes mellitus (HCC) ([facility]) BMI 50.0-59.9, adult ([facility]) Lower extremity edema Edema Type 2 diabetes mellitus with stage 3 chronic kidney disease, without long-term current use of insulin, unspecified whether stage 3a or 3b CKD ([facility]) ([facility])- Primary Bipolar affective disorder, remission status unspecified ([facility]) Restless leg syndrome Restless legs syndrome (RLS) URIEL (obstructive sleep apnea) Obstructive sleep apnea (adult) (pediatric) Primary hypertension ([facility]) Unspecified essential hypertension Chronic diastolic heart failure ([facility]) Chronic diastolic heart failure Stage 3 chronic kidney disease due to type 2 diabetes mellitus ([facility]) ([facility]) Seasonal allergies Allergic rhinitis, cause unspecified BMI 50.0-59.9, adult ([facility]) Type 2 diabetes mellitus with stage 4 chronic kidney disease, without long-term current use of insulin ([facility])- Primary Type 2 diabetes mellitus without complication, without long-term current use of insulin Left lower quadrant abdominal pain- Primary Morbid (severe) obesity due to excess calories ([facility]) Body mass index (BMI) 45.0-49.9, adult ([facility]) Restless leg syndrome Restless legs syndrome (RLS) Stage 3b chronic kidney disease (HCC) ([facility]) Type 2 diabetes mellitus with other circulatory complications- Primary Type 2 diabetes mellitus with stage 4 chronic kidney disease, without long-term current use of insulin ([facility]) Type 2 diabetes mellitus with stage 3a chronic kidney disease, without long-term current use of insulin ([facility]) ([facility]) Class 3 severe obesity due to excess calories with serious comorbidity and body mass index (BMI) of45.0 to 49.9 in adult Primary hypertension ([facility])- Primary Unspecified essential hypertension Spinal stenosis of lumbar region at multiple levels Restless leg syndrome Restless legs syndrome (RLS) URIEL (obstructive sleep apnea) Obstructive sleep apnea (adult) (pediatric) Coronary arteriosclerosis ([facility]) Coronary atherosclerosis of unspecified type of vessel, anvik or graft Stage 3b chronic kidney disease (HCC) ([facility]) Swelling of both lower extremities Lower extremity edema Edema Type 2 diabetes mellitus with stage 3a chronic kidney disease, without long-term current use of insulin ([facility]) [facility] Class 3 severe obesity due to excess calories with serious comorbidity and body mass index (BMI) of45.0 to 49.9 in adult Bipolar affective disorder, remission status unspecified ([facility]) Generalized anxiety disorder ([facility]) Generalized anxiety disorder Vitamin D deficiency Vitamin B12 deficiency Other B-complex deficiencies H/O bariatric surgery Acute non-recurrent pansinusitis Class 2 severe obesity due to excess calories with serious comorbidity and body mass index (BMI) of38.0 to 38.9 in adult ([facility])- Primary Type 2 diabetes mellitus with other circulatory complications Type 2 diabetes mellitus with stage 3a chronic kidney disease, without long-term current use of insulin ([facility]) ([facility]) Encounter for wellness examination in adult- Primary Encounter for screening mammogram for malignant neoplasm of breast Primary hypertension ([facility]) Unspecified essential hypertension Chronic diastolic heart failure ([facility]) Chronic diastolic heart failure Stage 3b chronic kidney disease (HCC) ([facility]) Class 2 severe obesity due to excess calories with serious comorbidity and body mass index (BMI) of38.0 to 38.9 in adult ([facility]) Type 2 diabetes mellitus with stage 3a chronic kidney disease, without long-term current use of insulin (HCC) ([facility]) Mixed hyperlipidemia ([facility]) Mixed hyperlipidemia documented in this encounter [facility] HealthcareEvaluation note* Diagnosis Primary hypertension ([facility])- Primary Unspecified essential hypertension Gastroesophageal reflux disease, unspecified whether esophagitis present Microscopic hematuria Lower extremity edema Edema Type 2 diabetes mellitus without complication, without long-term current use of insulin Stage 3 chronic kidney disease due to type 2 diabetes mellitus (HCC) ([facility]) Mixed hyperlipidemia ([facility]) Mixed hyperlipidemia Migraine without aura and without status migrainosus, not intractable ([facility]) Encounter for screening mammogram for malignant neoplasm of breast Colon cancer screening Special screening for malignant neoplasms, colon BMI 50.0-59.9, adult ([facility]) Heel pain, bilateral Type 2 diabetes mellitus without complication, without long-term current use of insulin- Primary History of anuria Stage 3 chronic kidney disease due to type 2 diabetes mellitus (HCC) ([facility]) BMI 50.0-59.9, adult ([facility]) URIEL (obstructive sleep apnea) Obstructive sleep apnea (adult) (pediatric) Primary hypertension ([facility]) Unspecified essential hypertension Chronic diastolic heart failure ([facility]) Chronic diastolic heart failure Depression, unspecified depression type ([facility]) Type 2 diabetes mellitus without complication, without long-term current use of insulin- Primary Stage 3 chronic kidney disease due to type 2 diabetes mellitus ([facility]) ([facility]) BMI 50.0-59.9, adult ([facility]) Lower extremity edema Edema Type 2 diabetes mellitus with stage 3 chronic kidney disease, without long-term current use of insulin, unspecified whether stage 3a or 3b CKD ([facility]) ([facility])- Primary Bipolar affective disorder, remission status unspecified ([facility]) Restless leg syndrome Restless legs syndrome (RLS) URIEL (obstructive sleep apnea) Obstructive sleep apnea (adult) (pediatric) Primary hypertension ([facility]) Unspecified essential hypertension Chronic diastolic heart failure ([facility]) Chronic diastolic heart failure Stage 3 chronic kidney disease due to type 2 diabetes mellitus ([facility]) ([facility]) Seasonal allergies Allergic rhinitis, cause unspecified BMI 50.0-59.9, adult ([facility]) Type 2 diabetes mellitus with stage 4 chronic kidney disease, without long-term current use of insulin ([facility])- Primary Type 2 diabetes mellitus without complication, without long-term current use of insulin Left lower quadrant abdominal pain- Primary Morbid (severe) obesity due to excess calories ([facility]) Body mass index (BMI) 45.0-49.9, adult ([facility]) Restless leg syndrome Restless legs syndrome (RLS) Stage 3b chronic kidney disease (HCC) ([facility]) Type 2 diabetes mellitus with other circulatory complications- Primary Type 2 diabetes mellitus with stage 4 chronic kidney disease, without long-term current use of insulin ([facility]) Type 2 diabetes mellitus with stage 3a chronic kidney disease, without long-term current use of insulin ([facility]) ([facility]) Class 3 severe obesity due to excess calories with serious comorbidity and body mass index (BMI) of45.0 to 49.9 in adult Primary hypertension ([facility])- Primary Unspecified essential hypertension Spinal stenosis of lumbar region at multiple levels Restless leg syndrome Restless legs syndrome (RLS) URIEL (obstructive sleep apnea) Obstructive sleep apnea (adult) (pediatric) Coronary arteriosclerosis ([facility]) Coronary atherosclerosis of unspecified type of vessel, anvik or graft Stage 3b chronic kidney disease (HCC) ([facility]) Swelling of both lower extremities Lower extremity edema Edema Type 2 diabetes mellitus with stage 3a chronic kidney disease, without long-term current use of insulin (HCC) ([facility]) Class 3 severe obesity due to excess calories with serious comorbidity and body mass index (BMI) of45.0 to 49.9 in adult Bipolar affective disorder, remission status unspecified ([facility]) Generalized anxiety disorder ([facility]) Generalized anxiety disorder Vitamin D deficiency Vitamin B12 deficiency Other B-complex deficiencies H/O bariatric surgery Acute non-recurrent pansinusitis Class 2 severe obesity due to excess calories with serious comorbidity and body mass index (BMI) of38.0 to 38.9 in adult ([facility])- Primary Type 2 diabetes mellitus with other circulatory complications Type 2 diabetes mellitus with stage 3a chronic kidney disease, without long-term current use of insulin ([facility]) ([facility]) Encounter for wellness examination in adult- Primary Encounter for screening mammogram for malignant neoplasm of breast Primary hypertension ([facility]) Unspecified essential hypertension Chronic diastolic heart failure ([facility]) Chronic diastolic heart failure Stage 3b chronic kidney disease (HCC) ([facility]) Class 2 severe obesity due to excess calories with serious comorbidity and body mass index (BMI) of38.0 to 38.9 in adult ([facility]) Type 2 diabetes mellitus with stage 3a chronic kidney disease, without long-term current use of insulin ([facility]) ([facility] Mixed hyperlipidemia ([facility]) Mixed hyperlipidemia Restless leg syndrome Restless legs syndrome (RLS) documented in this encounter [facility] HealthcareEvaluation note* Diagnosis Primary hypertension- Primary Unspecified essential hypertension Gastroesophageal reflux disease, unspecified whether esophagitis present Microscopic hematuria Lower extremity edema Edema Type 2 diabetes mellitus without complication, without long-term current use of insulin ([facility]) Stage 3 chronic kidney disease due to type 2 diabetes mellitus ([facility]) Mixed hyperlipidemia Mixed hyperlipidemia Migraine without aura and without status migrainosus, not intractable Encounter for screening mammogram for malignant neoplasm of breast Colon cancer screening Special screening for malignant neoplasms, colon BMI 50.0-59.9, adult ([facility]) Heel pain, bilateral Type 2 diabetes mellitus without complication, without long-term current use of insulin ([facility])- Primary History of anuria Stage 3 chronic kidney disease due to type 2 diabetes mellitus ([facility]) BMI 50.0-59.9, adult ([facility]) URIEL (obstructive sleep apnea) Obstructive sleep apnea (adult) (pediatric) Primary hypertension Unspecified essential hypertension Chronic diastolic heart failure ([facility]) Chronic diastolic heart failure Depression, unspecified depression type Type 2 diabetes mellitus without complication, without long-term current use of insulin ([facility])- Primary Stage 3 chronic kidney disease due to type 2 diabetes mellitus ([facility]) BMI 50.0-59.9, adult ([facility]) Lower extremity edema Edema Type 2 diabetes mellitus with stage 3 chronic kidney disease, without long-term current use of insulin, unspecified whether stage 3a or 3b CKD ([facility])- Primary Bipolar affective disorder, remission status unspecified ([facility]) Restless leg syndrome Restless legs syndrome (RLS) URIEL (obstructive sleep apnea) Obstructive sleep apnea (adult) (pediatric) Primary hypertension Unspecified essential hypertension Chronic diastolic heart failure ([facility]) Chronic diastolic heart failure Stage 3 chronic kidney disease due to type 2 diabetes mellitus ([facility]) Seasonal allergies Allergic rhinitis, cause unspecified BMI 50.0-59.9, adult ([facility]) Type 2 diabetes mellitus with stage 4 chronic kidney disease, without long-term current use of insulin ([facility])- Primary Type 2 diabetes mellitus without complication, without long-term current use of insulin ([facility]) Left lower quadrant abdominal pain- Primary Morbid (severe) obesity due to excess calories ([facility]) Body mass index (BMI) 45.0-49.9, adult ([facility]) Restless leg syndrome Restless legs syndrome (RLS) Stage 3b chronic kidney disease ([facility]) Type 2 diabetes mellitus with other circulatory complications ([facility])- Primary Type 2 diabetes mellitus with stage 4 chronic kidney disease, without long-term current use of insulin ([facility]) Type 2 diabetes mellitus with stage 3a chronic kidney disease, without long-term current use of insulin ([facility]) Class 3 severe obesity due to excess calories with serious comorbidity and body mass index (BMI) of45.0 to 49.9 in adult ([facility]) Primary hypertension- Primary Unspecified essential hypertension Spinal stenosis of lumbar region at multiple levels Restless leg syndrome Restless legs syndrome (RLS) URIEL (obstructive sleep apnea) Obstructive sleep apnea (adult) (pediatric) Coronary arteriosclerosis Coronary atherosclerosis of unspecified type of vessel, anvik or graft Stage 3b chronic kidney disease ([facility]) Swelling of both lower extremities Lower extremity edema Edema Type 2 diabetes mellitus with stage 3a chronic kidney disease, without long-term current use of insulin ([facility]) Class 3 severe obesity due to excess calories with serious comorbidity and body mass index (BMI) of45.0 to 49.9 in adult ([facility]) Bipolar affective disorder, remission status unspecified ([facility]) Generalized anxiety disorder Generalized anxiety disorder Vitamin D deficiency Vitamin B12 deficiency Other B-complex deficiencies H/O bariatric surgery Acute non-recurrent pansinusitis Class 2 severe obesity due to excess calories with serious comorbidity and body mass index (BMI) of38.0 to 38.9 in adult ([facility])- Primary Type 2 diabetes mellitus with other circulatory complications (HCC) Type 2 diabetes mellitus with stage 3a chronic kidney disease, without long-term current use of insulin ([facility]) Encounter for wellness examination in adult- Primary Encounter for screening mammogram for malignant neoplasm of breast Primary hypertension Unspecified essential hypertension Chronic diastolic heart failure (HCC) Chronic diastolic heart failure Stage 3b chronic kidney disease ([facility]) Class 2 severe obesity due to excess calories with serious comorbidity and body mass index (BMI) of38.0 to 38.9 in adult ([facility]) Type 2 diabetes mellitus with stage 3a chronic kidney disease, without long-term current use of insulin ([facility]) Mixed hyperlipidemia Mixed hyperlipidemia Type 2 diabetes mellitus with other circulatory complications ([facility])- Primary Type 2 diabetes mellitus with stage 3a chronic kidney disease, without long-term current use of insulin ([facility]) Type 2 diabetes mellitus with stage 4 chronic kidney disease, without long-term current use of insulin ([facility]) Type 2 diabetes mellitus without complication, without long-term current use of insulin ([facility]) Class 2 severe obesity due to excess calories with serious comorbidity and body mass index (BMI) of36.0 to 36.9 in adult ([facility]) documented in this encounter [facility] HealthcareEvaluation note* Diagnosis Primary hypertension- Primary Unspecified essential hypertension Gastroesophageal reflux disease, unspecified whether esophagitis present Microscopic hematuria Lower extremity edema Edema Type 2 diabetes mellitus without complication, without long-term current use of insulin ([facility]) Stage 3 chronic kidney disease due to type 2 diabetes mellitus (HCC) Mixed hyperlipidemia Mixed hyperlipidemia Migraine without aura and without status migrainosus, not intractable Encounter for screening mammogram for malignant neoplasm of breast Colon cancer screening Special screening for malignant neoplasms, colon BMI 50.0-59.9, adult ([facility]) Heel pain, bilateral Type 2 diabetes mellitus without complication, without long-term current use of insulin ([facility])- Primary History of anuria Stage 3 chronic kidney disease due to type 2 diabetes mellitus ([facility]) BMI 50.0-59.9, adult ([facility]) URIEL (obstructive sleep apnea) Obstructive sleep apnea (adult) (pediatric) Primary hypertension Unspecified essential hypertension Chronic diastolic heart failure ([facility]) Chronic diastolic heart failure Depression, unspecified depression type Type 2 diabetes mellitus without complication, without long-term current use of insulin ([facility])- Primary Stage 3 chronic kidney disease due to type 2 diabetes mellitus ([facility]) BMI 50.0-59.9, adult ([facility]) Lower extremity edema Edema Type 2 diabetes mellitus with stage 3 chronic kidney disease, without long-term current use of insulin, unspecified whether stage 3a or 3b CKD ([facility])- Primary Bipolar affective disorder, remission status unspecified ([facility]) Restless leg syndrome Restless legs syndrome (RLS) URIEL (obstructive sleep apnea) Obstructive sleep apnea (adult) (pediatric) Primary hypertension Unspecified essential hypertension Chronic diastolic heart failure ([facility]) Chronic diastolic heart failure Stage 3 chronic kidney disease due to type 2 diabetes mellitus ([facility]) Seasonal allergies Allergic rhinitis, cause unspecified BMI 50.0-59.9, adult ([facility]) Type 2 diabetes mellitus with stage 4 chronic kidney disease, without long-term current use of insulin ([facility])- Primary Type 2 diabetes mellitus without complication, without long-term current use of insulin ([facility]) Left lower quadrant abdominal pain- Primary Morbid (severe) obesity due to excess calories ([facility]) Body mass index (BMI) 45.0-49.9, adult ([facility]) Restless leg syndrome Restless legs syndrome (RLS) Stage 3b chronic kidney disease ([facility]) Type 2 diabetes mellitus with other circulatory complications ([facility])- Primary Type 2 diabetes mellitus with stage 4 chronic kidney disease, without long-term current use of insulin ([facility]) Type 2 diabetes mellitus with stage 3a chronic kidney disease, without long-term current use of insulin ([facility]) Class 3 severe obesity due to excess calories with serious comorbidity and body mass index (BMI) of45.0 to 49.9 in adult ([facility]) Primary hypertension- Primary Unspecified essential hypertension Spinal stenosis of lumbar region at multiple levels Restless leg syndrome Restless legs syndrome (RLS) URIEL (obstructive sleep apnea) Obstructive sleep apnea (adult) (pediatric) Coronary arteriosclerosis Coronary atherosclerosis of unspecified type of vessel, anvik or graft Stage 3b chronic kidney disease ([facility]) Swelling of both lower extremities Lower extremity edema Edema Type 2 diabetes mellitus with stage 3a chronic kidney disease, without long-term current use of insulin ([facility]) Class 3 severe obesity due to excess calories with serious comorbidity and body mass index (BMI) of45.0 to 49.9 in adult ([facility]) Bipolar affective disorder, remission status unspecified ([facility]) Generalized anxiety disorder Generalized anxiety disorder Vitamin D deficiency Vitamin B12 deficiency Other B-complex deficiencies H/O bariatric surgery Acute non-recurrent pansinusitis Class 2 severe obesity due to excess calories with serious comorbidity and body mass index (BMI) of38.0 to 38.9 in adult ([facility])- Primary Type 2 diabetes mellitus with other circulatory complications ([facility]) Type 2 diabetes mellitus with stage 3a chronic kidney disease, without long-term current use of insulin ([facility]) Encounter for wellness examination in adult- Primary Encounter for screening mammogram for malignant neoplasm of breast Primary hypertension Unspecified essential hypertension Chronic diastolic heart failure ([facility]) Chronic diastolic heart failure Stage 3b chronic kidney disease ([facility]) Class 2 severe obesity due to excess calories with serious comorbidity and body mass index (BMI) of38.0 to 38.9 in adult ([facility]) Type 2 diabetes mellitus with stage 3a chronic kidney disease, without long-term current use of insulin ([facility]) Mixed hyperlipidemia Mixed hyperlipidemia Type 2 diabetes mellitus with other circulatory complications ([facility])- Primary Type 2 diabetes mellitus with stage 3a chronic kidney disease, without long-term current use of insulin ([facility]) Type 2 diabetes mellitus with stage 4 chronic kidney disease, without long-term current use of insulin ([facility]) Type 2 diabetes mellitus without complication, without long-term current use of insulin ([facility]) Class 2 severe obesity due to excess calories with serious comorbidity and body mass index (BMI) of36.0 to 36.9 in adult ([facility]) Muscle spasm Spasm of muscle documented in this encounter [facility] HealthcareEvaluation note* Diagnosis Primary hypertension- Primary Unspecified essential hypertension Gastroesophageal reflux disease, unspecified whether esophagitis present Microscopic hematuria Lower extremity edema Edema Type 2 diabetes mellitus without complication, without long-term current use of insulin ([facility]) Stage 3 chronic kidney disease due to type 2 diabetes mellitus ([facility]) Mixed hyperlipidemia Mixed hyperlipidemia Migraine without aura and without status migrainosus, not intractable Encounter for screening mammogram for malignant neoplasm of breast Colon cancer screening Special screening for malignant neoplasms, colon BMI 50.0-59.9, adult ([facility]) Heel pain, bilateral Type 2 diabetes mellitus without complication, without long-term current use of insulin ([facility])- Primary History of anuria Stage 3 chronic kidney disease due to type 2 diabetes mellitus ([facility]) BMI 50.0-59.9, adult ([facility]) URIEL (obstructive sleep apnea) Obstructive sleep apnea (adult) (pediatric) Primary hypertension Unspecified essential hypertension Chronic diastolic heart failure ([facility]) Chronic diastolic heart failure Depression, unspecified depression type Type 2 diabetes mellitus without complication, without long-term current use of insulin ([facility])- Primary Stage 3 chronic kidney disease due to type 2 diabetes mellitus ([facility]) BMI 50.0-59.9, adult ([facility]) Lower extremity edema Edema Type 2 diabetes mellitus with stage 3 chronic kidney disease, without long-term current use of insulin, unspecified whether stage 3a or 3b CKD ([facility])- Primary Bipolar affective disorder, remission status unspecified ([facility]) Restless leg syndrome Restless legs syndrome (RLS) URIEL (obstructive sleep apnea) Obstructive sleep apnea (adult) (pediatric) Primary hypertension Unspecified essential hypertension Chronic diastolic heart failure ([facility]) Chronic diastolic heart failure Stage 3 chronic kidney disease due to type 2 diabetes mellitus ([facility]) Seasonal allergies Allergic rhinitis, cause unspecified BMI 50.0-59.9, adult ([facility]) Type 2 diabetes mellitus with stage 4 chronic kidney disease, without long-term current use of insulin ([facility])- Primary Type 2 diabetes mellitus without complication, without long-term current use of insulin ([facility]) Left lower quadrant abdominal pain- Primary Morbid (severe) obesity due to excess calories ([facility]) Body mass index (BMI) 45.0-49.9, adult ([facility]) Restless leg syndrome Restless legs syndrome (RLS) Stage 3b chronic kidney disease ([facility]) Type 2 diabetes mellitus with other circulatory complications ([facility])- Primary Type 2 diabetes mellitus with stage 4 chronic kidney disease, without long-term current use of insulin ([facility]) Type 2 diabetes mellitus with stage 3a chronic kidney disease, without long-term current use of insulin ([facility]) Class 3 severe obesity due to excess calories with serious comorbidity and body mass index (BMI) of45.0 to 49.9 in adult ([facility]) Primary hypertension- Primary Unspecified essential hypertension Spinal stenosis of lumbar region at multiple levels Restless leg syndrome Restless legs syndrome (RLS) URIEL (obstructive sleep apnea) Obstructive sleep apnea (adult) (pediatric) Coronary arteriosclerosis Coronary atherosclerosis of unspecified type of vessel, anvik or graft Stage 3b chronic kidney disease ([facility]) Swelling of both lower extremities Lower extremity edema Edema Type 2 diabetes mellitus with stage 3a chronic kidney disease, without long-term current use of insulin ([facility]) Class 3 severe obesity due to excess calories with serious comorbidity and body mass index (BMI) of45.0 to 49.9 in adult ([facility]) Bipolar affective disorder, remission status unspecified ([facility]) Generalized anxiety disorder Generalized anxiety disorder Vitamin D deficiency Vitamin B12 deficiency Other B-complex deficiencies H/O bariatric surgery Acute non-recurrent pansinusitis Class 2 severe obesity due to excess calories with serious comorbidity and body mass index (BMI) of38.0 to 38.9 in adult ([facility])- Primary Type 2 diabetes mellitus with other circulatory complications ([facility]) Type 2 diabetes mellitus with stage 3a chronic kidney disease, without long-term current use of insulin ([facility]) Encounter for wellness examination in adult- Primary Encounter for screening mammogram for malignant neoplasm of breast Primary hypertension Unspecified essential hypertension Chronic diastolic heart failure ([facility]) Chronic diastolic heart failure Stage 3b chronic kidney disease ([facility]) Class 2 severe obesity due to excess calories with serious comorbidity and body mass index (BMI) of38.0 to 38.9 in adult ([facility]) Type 2 diabetes mellitus with stage 3a chronic kidney disease, without long-term current use of insulin ([facility]) Mixed hyperlipidemia Mixed hyperlipidemia Type 2 diabetes mellitus with other circulatory complications ([facility])- Primary Type 2 diabetes mellitus with stage 3a chronic kidney disease, without long-term current use of insulin ([facility]) Type 2 diabetes mellitus with stage 4 chronic kidney disease, without long-term current use of insulin ([facility]) Type 2 diabetes mellitus without complication, without long-term current use of insulin ([facility]) Class 2 severe obesity due to excess calories with serious comorbidity and body mass index (BMI) of36.0 to 36.9 in adult ([facility]) Restless leg syndrome Restless legs syndrome (RLS) documented in this encounter [facility] HealthcareEvaluation note* Diagnosis Onset Date Resolution Status Admit Date Diabetic nephropathy associated with typ e 2 diabetes mellitus acuteAugust 2024 9:38amHyperkalemiaacuteAugust 2024 9:38am HyperuricemiaacuteAugust 2024 9:38amHypomagnesemiaacuteAugust 2024 9:38amIron deficiencyacuteAugust 2024 9:38amLocalized edemaacuteAugust 2024 9:38amMorbid obesityacuteAugust 2024 9:38amStage 3b chronic kidney diseaseacuteAugust 2024 9:38amVitamin B12 deficiencyacuteAugust 2024 9:38amVitamin D deficiencyacuteAugust 2024 9:38amHypertensive nephropathyresolvedAugust 2024 9:38am [facility] Work Phone: Evaluation note* Diagnosis Primary hypertension- Primary Unspecified essential hypertension Gastroesophageal reflux disease, unspecified whether esophagitis present Microscopic hematuria Lower extremity edema Edema Type 2 diabetes mellitus without complication, without long-term current use of insulin ([facility]) Stage 3 chronic kidney disease due to type 2 diabetes mellitus ([facility]) Mixed hyperlipidemia Mixed hyperlipidemia Migraine without aura and without status migrainosus, not intractable Encounter for screening mammogram for malignant neoplasm of breast Colon cancer screening Special screening for malignant neoplasms, colon BMI 50.0-59.9, adult ([facility]) Heel pain, bilateral Type 2 diabetes mellitus without complication, without long-term current use of insulin ([facility])- Primary History of anuria Stage 3 chronic kidney disease due to type 2 diabetes mellitus ([facility]) BMI 50.0-59.9, adult ([facility]) URIEL (obstructive sleep apnea) Obstructive sleep apnea (adult) (pediatric) Primary hypertension Unspecified essential hypertension Chronic diastolic heart failure ([facility]) Chronic diastolic heart failure Depression, unspecified depression type Type 2 diabetes mellitus without complication, without long-term current use of insulin ([facility])- Primary Stage 3 chronic kidney disease due to type 2 diabetes mellitus ([facility]) BMI 50.0-59.9, adult ([facility]) Lower extremity edema Edema Type 2 diabetes mellitus with stage 3 chronic kidney disease, without long-term current use of insulin, unspecified whether stage 3a or 3b CKD ([facility])- Primary Bipolar affective disorder, remission status unspecified ([facility]) Restless leg syndrome Restless legs syndrome (RLS) URIEL (obstructive sleep apnea) Obstructive sleep apnea (adult) (pediatric) Primary hypertension Unspecified essential hypertension Chronic diastolic heart failure (HCC) Chronic diastolic heart failure Stage 3 chronic kidney disease due to type 2 diabetes mellitus ([facility]) Seasonal allergies Allergic rhinitis, cause unspecified BMI 50.0-59.9, adult ([facility]) Type 2 diabetes mellitus with stage 4 chronic kidney disease, without long-term current use of insulin ([facility])- Primary Type 2 diabetes mellitus without complication, without long-term current use of insulin ([facility]) Left lower quadrant abdominal pain- Primary Morbid (severe) obesity due to excess calories ([facility]) Body mass index (BMI) 45.0-49.9, adult ([facility]) Restless leg syndrome Restless legs syndrome (RLS) Stage 3b chronic kidney disease ([facility]) Type 2 diabetes mellitus with other circulatory complications ([facility])- Primary Type 2 diabetes mellitus with stage 4 chronic kidney disease, without long-term current use of insulin ([facility]) Type 2 diabetes mellitus with stage 3a chronic kidney disease, without long-term current use of insulin ([facility]) Class 3 severe obesity due to excess calories with serious comorbidity and body mass index (BMI) of45.0 to 49.9 in adult ([facility]) Primary hypertension- Primary Unspecified essential hypertension Spinal stenosis of lumbar region at multiple levels Restless leg syndrome Restless legs syndrome (RLS) URIEL (obstructive sleep apnea) Obstructive sleep apnea (adult) (pediatric) Coronary arteriosclerosis Coronary atherosclerosis of unspecified type of vessel, anvik or graft Stage 3b chronic kidney disease ([facility]) Swelling of both lower extremities Lower extremity edema Edema Type 2 diabetes mellitus with stage 3a chronic kidney disease, without long-term current use of insulin ([facility]) Class 3 severe obesity due to excess calories with serious comorbidity and body mass index (BMI) of45.0 to 49.9 in adult ([facility]) Bipolar affective disorder, remission status unspecified ([facility]) Generalized anxiety disorder Generalized anxiety disorder Vitamin D deficiency Vitamin B12 deficiency Other B-complex deficiencies H/O bariatric surgery Acute non-recurrent pansinusitis Class 2 severe obesity due to excess calories with serious comorbidity and body mass index (BMI) of38.0 to 38.9 in adult ([facility])- Primary Type 2 diabetes mellitus with other circulatory complications ([facility]) Type 2 diabetes mellitus with stage 3a chronic kidney disease, without long-term current use of insulin ([facility]) Encounter for wellness examination in adult- Primary Encounter for screening mammogram for malignant neoplasm of breast Primary hypertension Unspecified essential hypertension Chronic diastolic heart failure (HCC) Chronic diastolic heart failure Stage 3b chronic kidney disease ([facility]) Class 2 severe obesity due to excess calories with serious comorbidity and body mass index (BMI) of38.0 to 38.9 in adult ([facility]) Type 2 diabetes mellitus with [...] complication, without long-term current use of insulin ([facility]) Class 2 severe obesity due to excess calories with serious comorbidity and body mass index (BMI) of36.0 to 36.9 in adult ([facility]) Restless leg syndrome Restless legs syndrome (RLS) documented in this encounter [facility] note* Type Assessment Date No Information [facility] Work Phone: History and physical note* Clinical Note Date No Information [facility] Work Phone: History general Narrative - Reported* Type Description Date Medical History hypertension Medical HistoryDyslipidemia (high LDL; low HDL)Medical HistoryMRSA (methicillin resistant staph aureus) culture positiveMedical HistoryCervicalgiaMedical Historydepression with Bipolar IIMedical HistoryOSASurgical HistoryNeck Fusion 2015Surgical HistoryBack [id number] Historyleft Rotator [id number] Surgical HistoryTotal [id number] HistoryHeart [id number] HistoryTonsilectomyTeenagerHospitalization HistorySee Above DGSE Other History general Narrative - Reported* Type Description Date Medical History hypertension Medical HistoryDyslipidemia (high LDL; low HDL)Medical HistoryMRSA (methicillin resistant staph aureus) culture positiveMedical HistoryCervicalgiaMedical Historydepression with Bipolar IIMedical HistoryOSASurgical HistoryNeck Fusion 2016Surgical HistoryBack [id number] Historyleft Rotator [id number] Surgical HistoryTotal [id number] HistoryHeart [id number] HistoryTonsilectomyTeenagerSurgical HistoryLOW BACK SURGERY07/2021Hospitalization HistorySee Above DGSE Other History of Past illness Narrative* Condition Effective Dates (start - stop) O utcome No Information [facility] Work Phone: Hospital Discharge instructionsAmbulatory Orders* AMB POC Hgb A1C Time Frame: 02/10/25, Location: Determined By Patient [facility] Work Phone: Hospital Discharge instructionsAmbulatory Orders* Referral to Orthopedic Surgery Time Frame: 02/18/25, Location: None Selected [facility] Work Phone: Instructions* Date Instruction Additional Infor mation No Information [facility] Work Phone: Progress note* Clinical Note Date No Information [facility] Work Phone: Reason for referral (narrative)No reason for referral information [facility] Work Phone: Rejtrt for referral (narrative)* Reason For Referral No Information [facility] Work Phone: Review of systems Narrative - Reported* System Pos/Neg Findings No Information [facility] Work Phone: Summary Purpose Family History [...] Father Problem (finding) MotherProblem (finding) Advance Directives Advance Directive Response Recorded Date/ Time Advance Directives No March 19, 2018 5:43pm Advance Directive Response Recorded Date/ Time Advance Directives No March 19, 2018 4:43pm Directive Yes / No Effective Date File Name No Information Hospital Course Note MR#: [id number] [facility] Pt. Name: Sherly Humphreys Admitted: [...] Diagnosis 1 Thoracic myelopathy (M47.14) Referral Organization [facility] urosurger Referring Provider First Name Christian Referring Provider Last Name Alfonso Referring Provider Specialty Neurologica l Surgery Referred Organization [facility] Pain Managemen t Referred Provider Ivan Sams Referred Address [address],[address] Referred Provider Specialty Pain Medicin e Referral Priority Routine General Notes Andreas Davisonn 023 12:45:54 PM >Received today and sent P2P Kristal Veloz 05/16/2022 02:01:28 PM >pt has been scheduled 06/02/22 [facility] Nini 06/05/2022 09:01:37 AM >Patient was a no show to her appt Andreas Davisonn 06/13/2022 11:23:40 AM >Telephone encounter was sent Reason Evaluate and Treat B ilateral Low Back Pain Diagnosis 1 Low back pain (M54.5 ) Referral Organization [facility] Referring Provider First Name Christian Referring Provider Last Name Alfonso Referring Provider Specialty Neurologica l Surgery Referred Organization Unknown Facility Referred Provider Specialty Physical The rapist Referral Priority Routine Chief Complaint and Reason for Visit From encounter dated '02/05/2025 08:01'. fill (chief complaint). Description: fill Chief Complaint low back pain Chief Complaint [...] Failure Acute Renal Failure N17.9 N18.9 F/[facility] RENAL hx of colon polypsReason for [...] 2024 8:42am Stage 3b chronic kidney [place] [facility] [place] Chief Complaint Admit Date E87.5 E79.0 E83.42 E53.8 E55.9 E61.1 Nov 2:12pm Renal 6 month follow up November 26 9:38am Established Patient December 16, 2024 8:42am February 04, 2025 1 0:46am 2M February 10, 2025 9 :08am Reason for Visit Admit Date Diabetic nephropathy [...] 2024 8:42am Stage 3b chronic kidney disease Decemb2024 8:42am Coronary artery disease February 10 9:08am 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 February 10, 2025 9:08am Hypertension February 10, 2025 9 :08am Intractable back pain February 10, 2025 9:08am Morbid obesity February 10, 2025 9 :08am RLS (restless legs syndrome) January 9:08am Stage 3b chronic kidney disease February 10, 2025 9:08am Chief Complaint Admit Date Renal 6 month follow up November 26 9:38am Established Patient December 16, 2024 8:42am February 10, 2025 9 :08am February 10, 2025 1 0:48am sharp pain from shoulder through hand No vember 2024 11:17am Additional Source Comments INFORMATION SOURCE (unrecogn ized section and content) DATE CREATED AUTHOR 11/22/2018 [facility] DATE CREATED AUTHOR AUTHOR'S ORGANIZ ATION 09/22/2022 [facility] DATE CREATED AUTHOR AUTHOR'S ORGANIZ ATION 05/26/2023 [facility] DATE CREATED AUTHOR AUTHOR'S ORGANIZ ATION 11/04/2024 [facility] EPIC DATE CREATED AUTHOR AUTHOR'S ORGANIZ ATION 12/16/2024 [facility] DATE CREATED AUTHOR AUTHOR'S ORGANIZ ATION 01/31/2025 [facility] DATE CREATED AUTHOR AUTHOR'S ORGANIZ ATION 02/06/2025 [facility] DATE CREATED AUTHOR AUTHOR'S ORGANIZ ATION 02/11/2025 [facility] REASON FOR VISIT (unrecogniz [...] Sta rt: November 18, 2024 End: November 18omno Mac MDAttending ProviderActiveStart: November 18, 2024 End: November 18, 2024 Team Status: Inactive Member Role Status Dates Janene Lew Primary Care Provider Active Sta rt: May 17, 2023 End: May 17, 2023Fauzia Huffman MDAttending ProviderActiveStart: May 17, 2023 End: May 17mono Mac , MDRefrafaelaing ProviderActiveStart: May 17, 2023 End: May 17, [...] Sta rt: March 15, 2023 Valdemar Alonso MDAttending ProviderActiveStart: March 15, 2023 Team Status: Inactive Member Role Status Dates Janene Lew Primary Care Provider Active Tarah Gold ProviderActive Team Status: Inactive Member Role Status Dates Janene Lew Primary Care Provider Active Padmini Handley ProviderActive Team Status: Inactive Member Role Status Dates Janene Lew Primary Care Provider Active Merissa Hernandez , ATHLETIC COACH-BCEmergency ProviderActive Team Status: Inactive Member Role Status Dates Janene Lew Primary Care Provider Active Sta rt: August 15, 2023 End: August 14mono Mac , MDAttending ProviderActiveStart: August 15, 2023 End: August 15, 2023 Team Status: Active Member Role Status Dates Janene Lew Primary Care Provider Active Sta rt: September 03, 2023 Valdemar Alonso MDAttending ProviderActiveStart: September 03, 2023 Team Status: Inactive Member Role Status Dates Janene Lew Primary Care Provider Active Sta rt: October 01, 2023 End: October 02, 2023Payal Duvall ProviderActiveStart: October 01, 2023 End: October 02, 2023Scarlet Kauffman ProviderActiveStart: October 01, 2023 End: October 02, 2023Fernando Rosenberg MDAttending ProviderActiveStart: October 01, 2023 End: October 02, [...] rt: October 11, 2023 End: October 11, 2023Samantha Rolleending ProviderActiveStart: October 11, 2023 End: October 11, 2023 Team Status: Active Member Role Status Dates Janene Lew Primary Care Provider Active Sta rt: October 16, 2023 Valdemar Alonso MDAttending ProviderActiveStart: October 16, 2023 Team Status: Inactive Member Role Status Dates Janene Lew Primary Care Provider Active Sta rt: October 16, 2023 End: October 15mono Mac Tarah ProviderActiveStart: October 16, 2023 End: October 16, 2023 Team Status: Active Member Role Status Dates Janene Lew Primary Care Provider Active Sta rt: October 29, 2023 Valdemar Celeste , Tarah ProviderActiveStart: October 29, 2023 Team Status: Inactive Member Role Status Dates Janene Lew Primary Care Provider Active Sta rt: November 01, 2023 End: October 31da Clemente , Tarah ProviderActiveStart: November 01, 2023 End: November 01, 2023Team MemberRelationshipSpecialtyStart DateEnd Date Markel Haq MD [address] [place] [address] PCP - GeneralFamily Medicine05/03/23 Janene Lew NP [address] [place] [address] PCP - [facility] [employer]09/15/23Team MemberRelationshipSpecialtyStart DateEnd Date Markel Haq MD [address] [place] [address] PCP - GeneralFamily Medicine05/03/23 Janene Lew NP [address] [place] [address] PCP - [facility] [employer]09/15/23Team MemberRelationshipSpecialtyStart DateEnd Date Markel Haq MD [address] [place] [address] PCP - Generalmily Medicine05/03/23 Janene Lew NP [address] [place] [address] PCP - [facility] [employer]09/15/23Team MemberRelationshipSpecialtyStart DateEnd Date Markel Haq MD [address] [place] [address] PCP - GeneralFamily Medicine05/03/23 Janene Lew NP [address] [place] [address] PCP - [facility] [employer]09/15/23Team MemberRelationshipSpecialtyStart DateEnd Date Markel Haq MD [address] [place] [address] PCP - GeneralFamily Medicine05/03/23 Janene Lew NP [address] [place] [address] PCP - [facility] [employer]09/15/23Team MemberRelationshipSpecialtyStart DateEnd Date aMrkel Haq MD [address] [place] [address] PCP - GeneralFamily Medicine05/03/23 Janene Lew NP [address] [place] [address] PCP - [facility] [employer]09/15/23Team MemberRelationshipSpecialtyStart DateEnd Date Markel Haq MD [address] [place] [address] PCP - GeneralFamily Medicine05/03/23 Janene Lew NP [address] [place] [address] PCP - [facility] [employer]09/15/23Team MemberRelationshipSpecialtyStart DateEnd Date Markel Haq MD [address] [place] [address] [facility] Janene Lew NP [address] [place] [address] PCP - [facility] [employer]09/15/23Team MemberRelationshipSpecialtyStart DateEnd Date Markel Haq MD [address] [place] [address] PCP - Generalmi Medicine05/03/23 Janene Lew NP [address] [place] [address] PCP - [facility] [employer]09/15/23Team MemberRelationshipSpecialtyStart DateEnd Date Markel Haq MD [address] [place] [address] PCP - GeneralFamily Medicine05/03/23 Janene Lew NP [address] [place] [address] PCP - [facility] [employer]09/15/23Team MemberRelationshipSpecialtyStart DateEnd Date Markel Haq MD [address] [place] [address] PCP - GeneralFamily Medicine05/03/23 Janene Lew NP [address] [place] [address] PCP - [facility] [employer]09/15/23Team MemberRelationshipSpecialtyStart DateEnd Date Markel Haq MD [address] [place] [address] [facility]/23 Janene Lew, ELIER [address] [place] [address] PCP - [facility] [employer]09/15/23Team MemberRelationshipSpecialtyStart DateEnd Date Markel Haq MD [address] [place] [address] PCP - GeneralFamily Medicine05/03/23 Janene Lew NP [address] [place] [address] PCP - [facility] [employer]09/15/23Team MemberRelationshipSpecialtyStart DateEnd Date Markel Haq MD [address] [place] [address] PCP - GeneralFamily Medicine05/03/23 Janene Lew NP [address] [place] [address] PCP - [facility] [employer]09/15/23Team MemberRelationshipSpecialtyStart DateEnd Date Markel Haq MD [address] [place] [address] PCP - GeneralFamily Medicine05/03/23 Janene Lew NP [address] [place] [address] PCP - [facility] [employer]09/15/23Team MemberRelationshipSpecialtyStart DateEnd Date Markel Haq MD [address] [place] [address] [facility]/03/23 Janene Lew NP [address] [place] [address] PCP - [facility] [employer]09/15/23Team MemberRelationshipSpecialtyStart DateEnd Date Markel Haq MD [address] [place] [address] PCP - GeneralFamily Medicine05/03/23 Janene Lew NP [address] [place] [address] PCP - [facility] [employer]09/15/23Team MemberRelationshipSpecialtyStart DateEnd Date Markel Haq MD [address] [place] [address] PCP - GeneralFamily Medicine05/03/23Team MemberRelationshipSpecialtyStart DateEnd Date Markel Haq MD [address] [place] [address] PCP - GeneralFamily Medicine05/03/23Team MemberRelationshipSpecialtyStart DateEnd Date Markel Haq MD [address] [place] [address] PCP - GeneralFamily Medicine05/03/23Team MemberRelationshipSpecialtyStart DateEnd Date Markel Haq MD [address] [place] [address] PCP - GeneralFamily Medicine05/03/23Team MemberRelationshipSpecialtyStart DateEnd Date Markel Haq MD [address] [place] [address] PCP - GeneralFamily Medicine05/03/23Team MemberRelationshipSpecialtyStart DateEnd Date Markel Haq MD [address] [place] [address] PCP - GeneralFamily Medicine05/03/23Team MemberRelationshipSpecialtyStart DateEnd Date Markel Haq MD [address] [place] [address] PCP - [facility] Medicine05/03/23Team MemberRelationshipSpecialtyStart DateEnd Date Markel Haq MD [address] [place] [address] PCP - [facility] Medicine05/03/23Team MemberRelationshipSpecialtyStart DateEnd Date Markel Haq MD [address] [place] [address] PCP - [facility]05/03/23 Team Status: Inactive Member Role Status Dates Janene Lew Primary Care Provider Active Sta rt: November 26, 2024 End: November 26Tarah Ochoa ProviderActiveStart: November 26, 2024 End: November 26, 2024Team MemberRelationshipSpecialtyStart DateEnd Date Markel Haq MD [address] [place] [address] PCP - [facility]05/03/23 Name Effective Dates (start - stop) Status Members No Information Team Status: Inactive Member Role Status Dates Janene Lew Primary Care Provider Active Sta rt: December 16, 2024 End: December 16, 2024Janene Ivy ProviderActiveStart: December 16, 2024 End: December 16, 2024 Team Status: Active Member Role/Relationship Status Dates COLLINS Paredes Primary Care Provider Active Team Status: Inactive Member Role/Relationship Status Dates COLLINS Paredes Primary Care Provider Active Start: November 18, 2024 End: November 18Tarah Ochoa ProviderActiveStart: November 18, 2024 End: November 18, 2024 Team Status: Inactive Member Role/Relationship Status Dates Janene Lew , CONFIGURATION MANAGEMENT ADVISOR-C Primary Care Provider Active Start: November 26, 2024 End: November 26mono Mac MDAttending ProviderActiveStart: November 26, 2024 End: November 26, 2024 Team Status: Inactive Member Role/Relationship Status Dates Janene Lew , CONFIGURATION MANAGEMENT ADVISOR-C Primary Care Provider Active Start: December 16, 2024 End: December 16, 2024Janene Lew , CONFIGURATION MANAGEMENT ADVISOR-CAttending ProviderActiveStart: December 16, 2024 End: December 16, 2024 Team Status: Active Member Role/Relationship Status Dates Janene Lew , CONFIGURATION MANAGEMENT ADVISOR-C Primary Care Provider Active Start: January 13, 2025 Marcella Conway , MDAttending ProviderActiveStart: January 13, 2025 Team Status: Active Member Role/Relationship Status Dates Jnaene Lew , CONFIGURATION MANAGEMENT ADVISOR-C Primary Care Provider Active Start: February 04, 2025 Valdemar Alonso , MDAttending ProviderActiveStart: February 04, 2025 Team Status: Inactive Member Role/Relationship Status Dates Janene Lew , CONFIGURATION MANAGEMENT ADVISOR-C Primary Care Provider Active Start: February 10, 2025 End: February 10, 2025Janene Lew , CONFIGURATION MANAGEMENT ADVISOR-CAttending ProviderActiveStart: February 10, 2025 End: February 10, 2025Team MemberRelationshipSpecialtyStart DateEnd Date Markel Haq MD PCP - [facility]05/03/23 Janene Lew NP [address] [place] [address] [facility] - [place] [facility] MemberRelationshipSpecialtyStart Date End Date Markel Haq MD PCP - [facility]05/03/23 Janene Lew NP [address] [place] [address] [facility] Member[facility]hipSpecialtyStart Date End Date Markel Haq MD PCP - [facility]05/03/23 Jaenne Lew NP [address] [place] [address] PCP - [facility] Team Status: Inactive Member Role/Relationship Status Dates Janene Lew CONFIGURATION MANAGEMENT ADVISOR-C Primary Care Provider Active Start: November 26, 2024 End: November 26mono Mac MDAttending ProviderActiveStart: November 26, 2024 End: November 26, 2024 Team Status: Inactive Member Role/Relationship Status Dates Janene Lew CONFIGURATION MANAGEMENT ADVISOR-C Primary Care Provider Active Start: December 16, 2024 End: December 16, 2024Janene Lew CONFIGURATION MANAGEMENT ADVISOR-CAttending ProviderActiveStart: December 16, 2024 End: December 16, 2024 Team Status: Active Member Role/Relationship Status Dates Janene Lew CONFIGURATION MANAGEMENT ADVISOR-C Primary Care Provider Active Start: January 13, 2025 Marcella Conway , MDAttending ProviderActiveStart: January 13, 2025 Team Status: Inactive Member Role/Relationship Status Dates Janene Lew CONFIGURATION MANAGEMENT ADVISOR-C Primary Care Provider Active Start: February 10, 2025 End: February 10, 2025Janene Lew CONFIGURATION MANAGEMENT ADVISOR-CAttending ProviderActiveStart: February 10, 2025 End: February 10, 2025 Team Status: Active Member Role/Relationship Status Dates Janene Lew CONFIGURATION MANAGEMENT ADVISOR-C Primary Care Provider Active Start: February 10, 2025 Tarah Baird ProviderActiveStart: February 10, 2025 Team Status: Inactive Member Role/Relationship Status Dates COLLINS Paredes Primary Care Provider Active Start: February 18, 2025 End: February 18, 2025Earl Paredes ProviderActiveStart: February 18, 2025 End: February 18, 2025 Goals (unrecognized section and content) Goals may [...] BE BASED ON THE PRIMARY CLINICAL RECORDS. [employer] provides no warranty or guarantee of the accuracy or completeness of information in this document.
[2025-03-18 11:37] LABS: Hematocrit 37.4 % (36.0-48.0); Hemoglobin 12.2 g/dL (12.0-16.0); Immature Granulocytes Abs Auto 0.01 10^3/uL (0.00-0.03); Immature Granulocytes Pct Auto 0.2 % (0.0-0.5); Lymphocytes Absolute Auto 1.7 10^3/uL (1.2-3.8); Mean Corpuscular HGB Conc 32.6 g/dL (29.9-35.2); Mean Corpuscular Hemoglobin 29.3 pg (26.7-34.0); Mean Corpuscular Volume 89.9 fL (81.0-99.0); Platelet Count 275 10^3/uL (150-450); Red Blood Count 4.16 10^6/uL (4.20-5.40); White Blood Count 5.0 10^3/uL (4.0-11.0)
--- NOTE | 2025-03-18 11:39 | PM.PRESUREVA ---
History of Present Illness History of Present Illness Chief complaint: PAIN STIM PLACEMENT Narrative: Patient presents for presurgical testing. The patient reports a long history of low back pain. She has had 2 prior lumbar spine surgeries, injections, home exercise program, pain medication, muscle relaxers, and continues to have pain which is worse after standing on her feet for long periods of time and does radiate to bilateral legs intermittently. She denies numbness, tingling, or weakness. Patient had a spinal cord stimulator trial here in January and did well. Review of Systems ROS Narrative REVIEW OF SYSTEMS: Negative except as stated in HPI, ten or more systems reviewed. Constitutional: No fever, chills, weakness ENT: No sore throat or epistaxis Cardiovascular: No edema, chest pain, palpitations, or activity intolerance Respiratory: No shortness of breath, cough, or wheezing Gastrointestinal: No abdominal pain, constipation, diarrhea, or vomiting Genitourinary: No dysuria or hematuria Neurological: No numbness, tingling, weakness, or headache Psychiatric: No mood changes PFSH PFS Medical History (Updated 03/18/25 @ 11:38 by Shanika Cm NP) CAD (coronary artery disease) ?I25.10 - Atherosclerotic heart disease of [place] coronary artery without angina pectoris (ICD-10) Shoulder pain (03/2025) ?M25.519 - Pain in unspecified shoulder (ICD-10) Back pain ?M54.9 - Dorsalgia, unspecified (ICD-10) Arthritis ?M19.90 - Unspecified osteoarthritis, unspecified site (ICD-10) Diverticulosis ?K57.90 - Diverticulosis of intestine, part unspecified, without perforation or abscess without bleeding (ICD-10) Extremity edema ?R60.0 - Localized edema (ICD-10) Delayed recovery from anesthesia MRSA infection ?A49.02 - Methicillin resistant Staphylococcus aureus infection, unspecified site (ICD-10) Stage III chronic kidney disease ?N18.30 - Chronic kidney disease, stage 3 unspecified (ICD-10) Spinal stenosis of thoracolumbar region ?M48.05 - Spinal stenosis, thoracolumbar region (ICD-10) Spinal stenosis of lumbar region at multiple levels ?M48.061 - Spinal stenosis, lumbar region without neurogenic claudication (ICD-10) Seasonal allergies ?J30.2 - Other seasonal allergic rhinitis (ICD-10) RLS (restless legs syndrome) ?G25.81 - Restless legs syndrome (ICD-10) Kidney stones ?N20.0 - Calculus of kidney (ICD-10) Myalgia ?M79.10 - Myalgia, unspecified site (ICD-10) Migraine ?G43.909 - Migraine, unspecified, not intractable, without status migrainosus (ICD-10) Microscopic hematuria ?R31.29 - Other microscopic hematuria (ICD-10) Lumbar disc herniation ?M51.26 - Other intervertebral disc displacement, lumbar region (ICD-10) Lower extremity edema ?R60.0 - Localized edema (ICD-10) Irritable bowel syndrome with diarrhea ?K58.0 - Irritable bowel syndrome with diarrhea (ICD-10) Insomnia ?G47.00 - Insomnia, unspecified (ICD-10) Hypomagnesemia ?E83.42 - Hypomagnesemia (ICD-10) Hyperlipidemia ?E78.5 - Hyperlipidemia, unspecified (ICD-10) Hyperkalemia ?E87.5 - Hyperkalemia (ICD-10) GERD (gastroesophageal reflux disease) ?K21.9 - Gastro-esophageal reflux disease without esophagitis (ICD-10) Fatigue ?R53.83 - Other fatigue (ICD-10) Dyspnea ?R06.00 - Dyspnea, unspecified (ICD-10) Depression ?F32.A - Depression, unspecified (ICD-10) Lumbar degenerative disc disease ?M51.369 - Other intervertebral disc degeneration, lumbar region without mention of lumbar back pain or lower extremity pain (ICD-10) Postlaminectomy syndrome ?M96.1 - Postlaminectomy syndrome, not elsewhere classified (ICD-10) Coronary arteriosclerosis ?I25.10 - Atherosclerotic heart disease of [place] coronary artery without angina pectoris (ICD-10) C. difficile diarrhea ?A04.72 - Enterocolitis due to Clostridium difficile, not specified as recurrent (ICD-10) Bradycardia ?R00.1 - Bradycardia, unspecified (ICD-10) Anemia ?D64.9 - Anemia, unspecified (ICD-10) Abdominal hernia ?K46.9 - Unspecified abdominal hernia without obstruction or gangrene (ICD-10) Hypertension ?I10 - Essential (primary) hypertension (ICD-10) Bipolar 1 disorder ?F31.9 - Bipolar disorder, unspecified (ICD-10) Anxiety ?F41.9 - Anxiety disorder, unspecified (ICD-10) Diabetes ?E11.9 - Type 2 diabetes mellitus without complications (ICD-10) URIEL on CPAP ?G47.33 - Obstructive sleep apnea (adult) (pediatric) (ICD-10) Sleep apnea ?G47.30 - Sleep apnea, unspecified (ICD-10) High cholesterol ?E78.00 - Pure hypercholesterolemia, unspecified (ICD-10) CHF (congestive heart failure) ?I50.9 - Heart failure, unspecified (ICD-10) Surgical History (Updated 03/18/25 @ 11:11 by Shanika Cm NP) History of cardiac catheterization ?Z98.890 - Other specified postprocedural states (ICD-10) S/P insertion of spinal cord stimulator (01/26/25) ?Z96.89 - Presence of other specified functional implants (ICD-10) H/O gastric bypass ?Z98.84 - Bariatric surgery status (ICD-10) S/P epidural steroid injection ?Z92.241 - Personal history of systemic steroid therapy (ICD-10) H/O colonoscopy ?Z98.890 - Other specified postprocedural states (ICD-10) H/O cervical spine surgery ?Z98.890 - Other specified postprocedural states (ICD-10) H/O bariatric surgery ?Z98.84 - Bariatric surgery status (ICD-10) History of hysterectomy ?Z90.710 - Acquired absence of both cervix and uterus (ICD-10) History of shoulder surgery ?Z98.890 - Other specified postprocedural states (ICD-10) History of neck surgery ?Z98.890 - Other specified postprocedural states (ICD-10) History of back surgery ?Z98.890 - Other specified postprocedural states (ICD-10) History of heart artery stent (~2009) ?Z95.5 - Presence of coronary angioplasty implant and graft (ICD-10) Family History (Updated 03/18/25 @ 11:22 by Shanika Cm NP) Other Family history of DVT Family history of aneurysm Family history of cancer Family history of coronary artery disease Family history of diabetes mellitus Family history of heart disease Family history of hypertension Family history of myocardial infarction Family history of renal failure Family history of stroke Syncope Social History Within the past year, how often did you have a drink containing alcohol: never Score interpretation: A score less than 3 is consistent with normal alcohol consumption. Smoking status: Never smoker Non-prescribed substance use: denies use Previous occupational history: [employer] Highest level of school completed/degree received: high school graduate Little interest or pleasure in doing things: not at all Feeling down, depressed, or hopeless: not at all Meds Home Medications and Allergies Home Medications ?Medication ?Instructions ?Recorded ?Confirmed ?Type amlodipine 10 mg tablet 10 mg PO QDAY 12/18/22 03/18/25 History aspirin 81 mg chewable tablet 81 mg PO QDAY 12/18/22 03/18/25 History atorvastatin 80 mg tablet 80 mg PO QDAY 12/18/22 03/18/25 History buspirone 30 mg tablet 30 mg PO BID 12/18/22 03/18/25 History fenofibrate nanocrystallized 145 145 mg PO QDAY 12/18/22 03/18/25 History mg tablet gabapentin 600 mg tablet 600 mg PO QDAY PRN neuromuscular 12/18/22 03/18/25 History blockade isosorbide mononitrate 30 mg 30 mg PO QDAY 12/18/22 03/18/25 History tablet,extended release 24 hr metoprolol succinate 25 mg 12.5 mg PO QDAY 12/18/22 03/18/25 History tablet,extended release 24 hr sacubitril 49 mg-valsartan 51 mg 0.5 tab PO BID 12/18/22 03/18/25 History tablet (Entresto) tizanidine 4 mg tablet 4 mg PO Q8H PRN muscle spasticity 12/18/22 03/18/25 History cetirizine 10 mg tablet (Zyrtec) 10 mg PO DAILY PRN allergy symptoms 01/01/23 03/18/25 History tirzepatide 5 mg/0.5 mL 5 mg subcut QWEEK 10/01/24 03/18/25 History subcutaneous pen injector (Mounjaro) aripiprazole 30 mg tablet 30 mg PO DAILY 10/07/24 03/18/25 History benztropine 0.5 mg tablet 0.5 mg PO BID 10/07/24 03/18/25 History cholecalciferol (vitamin D3) 125 5,000 unit PO DAILY 10/07/24 03/18/25 History mcg (5,000 unit) capsule cyanocobalamin (vitamin B-12) 2,000 mcg sublingual DAILY 10/07/24 03/18/25 History 1,000 mcg sublingual lozenge fluoxetine 40 mg capsule 80 mg PO DAILY 10/07/24 03/18/25 History fluticasone propionate 50 2 spray intranasal Q12H 10/07/24 03/18/25 History mcg/actuation nasal spray,suspension nitroglycerin 0.4 mg sublingual 0.4 mg sublingual Q5M PRN chest 10/07/24 03/18/25 History tablet pain sennosides 8.6 mg-docusate sodium 1 tab-cap PO DAILY 10/07/24 03/18/25 History 50 mg capsule cariprazine 6 mg capsule (Vraylar) 6 mg PO QPM 01/13/25 03/18/25 History ropinirole 0.25 mg tablet 0.25 mg PO DAILY 01/13/25 03/18/25 History oxycodone-acetaminophen 7.5 mg-325 1 tab PO BID PRN pain #60 tabs 03/02/25 03/18/25 Rx mg tablet (Percocet) cephalexin 500 mg capsule 500 mg PO TID 7 days #21 caps 03/18/25 Rx Allergies Allergy/AdvReac Type Severity Reaction Status Date / Time Sulfa (Sulfonamide Allergy Mild Hives Verified 03/18/25 11:15 Antibiotics) prochlorperazine (From AdvReac Intermediate Agitated Verified 03/18/25 11:15 Compazine) promethazine (From Phenergan) AdvReac Intermediate Agitated Verified 03/18/25 11:15 sulfamethoxazole (From AdvReac Mild Hives Verified 03/18/25 11:15 Bactrim) trimethoprim (From Bactrim) AdvReac Mild Hives Verified 03/18/25 11:15 Exam Narrative Exam Narrative: Constitutional: Awake, alert, comfortable, well-appearing, nontoxic, interactive, vital signs as charted Head: Normocephalic, atraumatic Neck: Supple, normal appearance, normal range of motion, no meningeal signs, no lymphadenopathy Respiratory: No respiratory distress, breath sounds clear Cardiovascular: Regular rate and rhythm, strong and regular heart tones Abdomen: Nontender, normal bowel sounds, soft Musculoskeletal: Normal gait, no swelling or edema, limited thoracic and lumbar spine range of motion due to pain, bilateral lumbar paraspinal muscle tenderness Skin: No rashes or induration, no lesions, only visible skin inspected Neuro: No neurological deficits, normal sensation Psychiatric: Oriented ?3, normal affect Assessment and Plan Assessment and Plan (1) Postlaminectomy syndrome: (2) Back pain: Plan Spinal cord stimulator implant scheduled with Dr. Zuniga March 23, 2025.
[2025-03-18 11:50] LABS: Anion Gap 11.0; Blood Urea Nitrogen 22.0 mg/dL (7.0-18.0); Calcium 9.6 mg/dL (8.5-10.1); Carbon Dioxide 26.8 mmol/L (21.0-32.0); Chloride 109 mmol/L (98-107); Estimated GFR (African America 56 (>=60 mL/min/1.73m^2); Estimated GFR (Non-African Ame 46 (>=60 mL/min/1.73m^2); Glucose 95 mg/dL (74-106); Potassium 3.8 mmol/L (3.5-5.1); Sodium 143 mmol/L (136-145)
[2025-03-18 12:00] LABS: INR 1.07; Partial Thromboplastin Time 27.1 sec (22.3-36.2); Prothrombin Time 11.2 sec (9.0-11.6)
== END 2025-03-18 10:46 | disposition home or self-care (01) ==
LOC: PST 10:45
PROVIDERS: PCP Nurse Practitioner; Visit Provider Anesthesiology
DX: Z01.812 Encounter for preprocedural laboratory examination (principal); Z01.818 Encounter for other preprocedural examination; M96.1 Postlaminectomy syndrome, not elsewhere classified
CPT/HCPCS: 36415; 80048; 85025; 85610; 85730; G0463

== ENCOUNTER 2025-03-23 09:03 | Day surgery (SDC) | payer BC, SELFPAY ==
[2025-03-18 11:31] VITALS: BP 118/82; PULSE 54; TEMP 36.3; O2SAT 98; BMI 38.8
--- OUTSIDE RECORDS SUMMARY | 2025-03-23 09:09 | XMS_ITS | CCD ---
Author Organization [facility] [place] [facility] Care Team Providers Care Business Writer Name Role Phone Peng Merino Admitting Unavailable Peng Merino Attending Unavailable GEOVANNI BRUNNER Primary Care Unavailable HAMMAD LING Referring Unavailabl e SD Procedure Practitioner Unavailab TK [place] Surgeon Unavailable Christian Hamilton Unavailable Janene Lew Primary Care Provider MD Christian Hamilton Attending Provider ELIER Bolivar Emma Attending Provider [phone] Emma Bolivar Unavailable Halle Mac Unavailable Janene Lew Primary Care Provider [phone] NERISSA Hernandez Emergency Provider [phone] Ivan Sams Unavailable AICHHOLZ, FLOWER GROWER JANENE Consulting Unavailable AICHHOLZ, FLOWER GROWER JANENE Attending Unavailable AICHHOLZ, FLOWER GROWER JANENE Admitting Unavailable AICHHOLZ, FLOWER GROWER JANENE Primary Care Unavailable AICHHOLZ, FLOWER GROWER JANENE Consulting Unavailable AICHHOLZ, FLOWER GROWER JANENE Attending Unavailable AICHHOLZ, FLOWER GROWER JANENE Admitting Unavailable AICHHOLZ, FLOWER GROWER JANENE Primary Care Unavailable AICHHOLZ, FLOWER GROWER JANENE Primary Care Unavailable AICHHOLZ, FLOWER GROWER JANENE Consulting Unavailable AICHHOLZ, FLOWER GROWER JANENE Admitting Unavailable AICHHOLZ, FLOWER GROWER JANENE Attending Unavailable DR MYRIAM SAMANIEGO Attending Unavailable DR MYRIAM SAMANIEGO Admitting Unavailable DR MYRIAM SAMANIEGO Consulting Unavailable AICHHOLZ, FLOWER GROWER JANENE Primary Care Unavailable AICHHOLZ, FLOWER GROWER JANENE Primary Care Unavailable DWAYNE FRIEDMAN Admitting Unavailable DWAYNE FRIEDMAN Attending Unavailable CLEMENT PLUMMER Consulting Unavailable Wan Jenkins Consulting Unavailable AICHHOLZ, FLOWER GROWER JANENE Primary Care Unavailable EVON TRAMMELL Attending Unavailable JP, EVON Admitting Unavailable EVON TRAMMELL Consulting Unavailable LUZ COELLO Consulting Unavailable NATHAN COLE Consulting Unavailable LIN GARRETT Consulting Unavailable AICHHOLZ, FLOWER GROWER JANENE Primary Care Unavailable AICHHOLZ, FLOWER GROWER JANENE Admitting Unavailable AICHHOLZ, FLOWER GROWER JANENE Attending Unavailable DR ALEX WEISS V Consulting Unavailable AICHHOLZ, FLOWER GROWER JANENE Consulting Unavailable AICHHOLZ, FLOWER GROWER JANENE Consulting Unavailable AICHHOLZ, FLOWER GROWER JANENE Attending Unavailable AICHHOLZ, FLOWER GROWER JANENE Admitting Unavailable AICHHOLZ, FLOWER GROWER JANENE Primary Care Unavailable DR KATHY LOBATO Consulting Unavailable AICHHOLZ, FLOWER GROWER JANENE Attending Unavailable AICHHOLZ, FLOWER GROWER JANENE Admitting Unavailable AICHHOLZ, FLOWER GROWER JANENE Primary Care Unavailable DR ALEX WEISS V Consulting Unavailable AICHHOLZ, FLOWER GROWER JANENE Consulting Unavailable AICHHOLZ, FLOWER GROWER JANENE Consulting Unavailable AICHHOLZ, FLOWER GROWER JANENE Primary Care Unavailable AICHHOLZ, FLOWER GROWER JANENE Attending Unavailable AICHHOLZ, FLOWER GROWER JANENE Admitting Unavailable AICHHOLZ, FLOWER GROWER JANENE Primary Care Unavailable AICHHOLZ, FLOWER GROWER JANENE Admitting Unavailable AICHHOLZ, FLOWER GROWER JANENE Consulting Unavailable AICHHOLZ, FLOWER GROWER JANENE Attending Unavailable DR KATHY LOBATO Consulting Unavailable AICHHOLZ, FLOWER GROWER JANENE Primary Care Unavailable BAKHOUS, AZIZ Admitting Unavailable BAKHOUS, AZIZ Attending Unavailable AICHHOLZ, FLOWER GROWER JANENE Attending Unavailable AICHHOLZ, FLOWER GROWER JANENE Admitting Unavailable AICHHOLZ, FLOWER GROWER JANENE Primary Care Unavailable AICHHOLZ, FLOWER GROWER JANENE Primary Care Unavailable AICHHOLZ, FLOWER GROWER JANENE Consulting Unavailable AICHHOLZ, FLOWER GROWER JANENE Attending Unavailable AICHHOLZ, FLOWER GROWER JANENE Admitting Unavailable DR KATHY LOBATO Consulting Unavailable AICHHOLZ, FLOWER GROWER JANENE Primary Care Unavailable AICHHOLZ, FLOWER GROWER JANENE Admitting Unavailable AICHHOLZ, FLOWER GROWER JANENE Attending Unavailable AICHHOLZ, FLOWER GROWER JANENE Consulting Unavailable AICHHOLZ, FLOWER GROWER JANENE Primary Care Unavailable DOLORES STRATTON Attending Unavailable AMBER ., DOLORES Admitting Unavailable RAMIREZ ., MR DELIA Consulting Unavailable AMBER ., DOLORES Consulting Unavailable ALEX AVINA Consulting Unavailable AICHHOLZ, AGUSTINA JANENE Primary Care Unavailable EVON TRAMMELL Attending Unavailable EVON TRAMMELL Admitting Unavailable EVON TRAMMELL Consulting Unavailable Reddhomkar Janene J Primary Care Provider MD Valdemar Alonso Attending Provider MD Fauzai Huffman Attending Provider UnavailMD Halle Felton Referring Provider [phone] MARKEL HAQ Primary Care Unavailable Janene Lew J Attending Unavailable Aichholrufus, Janene J Admitting Unavailable Aichomkar, Janene J Primary Care Provider MD Fauzia Huffman Attending Provider UnavailMD Halle Felton Referring Provider [phone] MD Halle Mac Attending Provider [phone] Janene Lew Primary Care Provider MD Valdemar Alonso Attending Provider MD Alma Deng Admit Provider [phone] MD [facility] Other Provider MD Fernando Rosenberg Attending Provider MD Valdemar Alonso Attending Provider MD Valdemar Alonso Attending Provider MD Ban Clemente Attending Provider [phone] Markel Haq MD Primary Care Provider Louann CORRECTIONAL SECURITY OFFICER, Janene Unavailable MARYA CASTORENA Attending Unavailable AICJANENE VERNON Attending Unavailable BAN ARTIS Attending Unavailable MARYA CASTORENA Attending Unavailable LOUANN, JANENE Referring Unavailable JANENE LEW Attending Unavailable MARYA CASTORENA Attending Unavailable MARYA CASTORENA Attending Unavailable AICHHOLRufus, JANENE Attending Unavailable Aichholrufus, Janene J Primary Care Provider Valdemar Alonso MD Attending Provider Bubba SHARMA, Halle Attending Provider ELTAHAWY, EHAB Attending Unavailable ELTAHAWY, EHAB Attending Unavailable ELTAHAWY, EHAB Admitting Unavailable ELTAHAWY, EHAB Attending Unavailable ELTAHAWY, EHAB Referring Unavailable ELTAHAWY, EHAB Referring Unavailable Kanani DMD, Joshua Unavailable Unavailable Aicsaulo Janene J Attending Provider Kanani DMD, Joshua Unavailable Unavailable Man SHARMA, Marcella Haywood Attending Unavailable Kanani DMD, Joshua Attending Unavailable Aichholz CORRECTIONAL SECURITY OFFICER-C, Janene J Primary Care Provider Aicsaulo CORRECTIONAL SECURITY OFFICER-C, Janene J Attending Provider Marcella Conway MD Attending Provider Valdemar Alonso MD Attending Provider [phone] Halle Mac Attending Unavailable Halle Mac Admitting Unavailable Aichholrufus, Janene J Primary Care Unavailable BakmichaelsDonaldiz Attending Unavailable Bakmichaels, Aziz Admitting Unavailable Aichholz, Janene J Primary Care Unavailable Valdemar Alonso Attending Unavailab le Valdemar Alonso Admitting Unavailab le Louann, Janene J Primary Care Unavailable Markel Haq MD Primary Care Provider Aichholz CORRECTIONAL SECURITY OFFICER, Janene Unavailable Aictimmyholrufus CORRECTIONAL SECURITY OFFICER-C, Janene J Primary Care Provider Halle Mac MD Attending Provider Aicsaulo CORRECTIONAL SECURITY OFFICER-C, Janene Lopes Attending Provider Marcella Conway MD Attending Provider Valdemar Alonso MD Attending Provider Nicola DMD, Joshua Unavailable Unavailable Allergies Allergy ClassificationReported Allergen(s)Allergy TypeDate of OnsetReaction(s) Facility (2 sources)CephalexinDrug Ahsndmv17-95-6519[facility] ([facility] sources)LevamisoleDrug Sjzsdcr13-52-4282Qmz [facility] Repository (2 sources)Omeprazole; Translations: [OMEPRAZOLE]Drug Gtyqmtj83-36-1102EmzN[facility]wide [facility] Repository (14 sources)ProchlorperazineDrug Usivxvr17-78-5546SeoxlblIjcKing's [facility]aughters [facility] [place] Repository (14 sources)Sulfamethoxazole / TrimethoprimDrug Cyonjjv99-23-2282PksthuwIdyKing's Daughters Medical [facility] [place] Repository (12 sources)Penicillins (Antibiotic)Propensity to adverse reactionsUnknoFliplife Other (20 sources)Promethazine; Translations: [PROMETHAZINE]Drug Kqdpgas95-49-0344 Unknown, [facility] (20 sources)empagliflozin; Translations: [EMPAGLIFLOZIN]Drug Vlvnqzm40-81-3793 Unknown [facility] (20 sources)Penicillins; Translations: [Penicillins]Allergy to substance 22-90-9663TrbeSrvxhswjaMcKitrick Hospital (20 sources)Prochlorperazine; Translations: [PROCHLORPERAZINE]Drug Allergy 84-80-4284KjwvloaOhrlspnzlMercy Health [facility] (20 sources)Sulfamethoxazole; Translations: [SULFAMETHOXAZOLE]Drug Allergy 81-54-1284ZgojJkcmnajorMcKitrick Hospital (15 sources)Trimethoprim; Translations: [trimethoprim]Drug Dfroqyv22-56-9982AreyMagruder Hospital (1 source)Sulfonamides (Antibiotic)Drug allergy (disorder)95-26-0723JkxOhiohealth [facility] Repository (20 sources)zolpidem; Translations: [ZOLPIDEM]Drug Mctmebc51-98-5821DcodftxUniversity Hospitals Conneaut Medical CenterComment on above:per pt (20 sources)Cephalexin; Translations: [CEPHALEXIN]Drug Pizmadf88-33-0302CY[facility] (20 sources)EsomeprazoleDrug Bigegep92-50-1729DD intoleranceNOOH Healthcare (20 sources)OmeprazoleDrug Euqwdtg74-80-0272IR intoleranceNOHermann Area District Hospital (20 sources)pantoprazole; Translations: [PANTOPRAZOLE]Drug Jcugdzk00-04-0861VW intoleranceINTERMOUNTAIN MEDICAL CENTER Healthcare (20 sources)Sulfamethoxazole / Trimethoprim; Translations: [SULFAMETHOXAZOLE-TRIMETHOPRIM]Drug Nwaqzlx68-61-8402OenfLATL Healthcare (1 source)Doxycycline; Translations: [DOXYCYCLINE CALCIUM]Drug Xurgrpw41-48-5124 [facility] Repository (1 source)Esomeprazole; Translations: [ESOMEPRAZOLE MAGNESIUM]Drug Allergy 45-55-3230VjzvvcjnyvKnox [facility] Hospital Repository (1 source)PHENERGAN PLAIN; Translations: [PHENERGAN PLAIN]Propensity to adverse reactions to drug (disorder)28-35-8947LaysowizzyKnox Community Hospital Repository (1 source)PromethazineDrug Wikfyir97-30-3606YcpataqptSt. Rita'S Hospital Repository (2 sources)metFORMINDrug Ahssdty94-98-5846PpisthfwWoxnebuwlAdena Regional Medical Center Medications Current Medications MedicationDrug Class(es)DatesSig (Normalized)Sig (Original)0.5 ML tirzepatide 15 MG/ML Auto-Injector [Mounjaro] (1 source)inject 1 mg by subcutaneous injection every weekMounjaro 7.5 mg/0.5 mL subcutaneous pen injector inject (7.5MG) by subcutaneous route every week 7.5 MG - Activeacetaminophen 325 mg / oxyCODONE hydrochloride 7.5 mg oral tablet (20 sources)Opioid AgonistStart: 10-01-2023 End: 47-52-6666ggve 1 tablet by mouth every eight hours as needed for painStart: 06-24-2022 End: 55-45-0389dpmr 1 tablet by mouth every six hours as needed for pain Oxycodone-Acetaminophen 5-325 mg tablet Discontinued 1 TAB PO Q6H as needed for pain 10 3 0 June 24, 2022 August 15, 2023 9:12am Radiculopathy Radiculopathy, site unspecifiedtake 1 tablet by mouth in the morningoxyCODONE-acetaminophen (Percocet) 7.5-325 MG tablet Take 1 tablet by mouth in the morning and 1 tablet before bedtime. [id number] 200 actuat albuterol 0.09 mg/actuat metered dose inhaler (6 sources)beta2-Adrenergic AgonistStart: 27-03-9448hyyi 1 puff(s) by inhalation every four hoursAlbuterol Sulfate (Ventolin Hfa) 90 mcg/actuation HFA aerosol inhaler Active 2 PUFF INHALATION Q4H June 04, 2021 1:00amAlbuterol Active amLODIPine 10 mg oral tablet (20 sources)Dihydropyridine Calcium Channel BlockerStart: 10-16-2023 End: 94-22-3766kxqr 1 tablet by mouth once dailyStart: 08-15-2023 End: 89-78-2944jgct 1 tablet by mouth once dailyAmlodipine 10 mg tablet Discontinued 10 MG PO Daily August 14, 2023 11:00pm October 02, 2023 9:55amtake 1 tablet by mouth every twenty-four hoursamLODIPine Besylate 5 MG 1 tablet Orally Once a day ActiveamLODIPine Besylate ActiveARIPiprazole 30 mg oral tablet (20 sources)Atypical AntipsychoticStart: 10-37-6175jddi 1 tablet by mouth once dailyStart: 08-15-2023 End: 33-68-8527gdfi 1 tablet by mouth once dailyAripiprazole 20 mg tablet Discontinued 20 MG PO Daily August 14, 2023 11:00pm October 16, 2023 12:13pm Start: 06-04-2021 End: 67-28-5531fhpq 1 tablet by mouth once dailyAripiprazole 30 [...] sources)Platelet Aggregation Inhibitor, Nonsteroidal Anti-inflammatory Drug Start: 70-72-0510esgu 1 tablet by mouth once dailytake 1 tablet by mouth every twenty-four hoursAspirin 81 MG 1 tablet Orally Once a day Activeatorvastatin 80 mg oral tablet (20 sources)HMG-CoA Reductase InhibitorStart: 67-49-9174gkdl 1 tablet by mouth once dailyStart: 06-04-2021 End: 92-81-2075wbns 1 tablet by mouth at bedtimeAtorvastatin 40 mg tablet Discontinued 40 MG PO Bedtime June 04, 2021 12:00am August 15, 2023 9:06am azithromycin 250 mg oral tablet (8 sources)Macrolide AntimicrobialStart: 03-06-2024 End: 44-61-1245tkzkgsmuqsdn (Zithromax) 250 MG tablet Indications: Acute non- recurrent pansinusitis 2 pills day #1, then 1 pill day #2-#5 6 tablet 03/06/2024 06/16/2024 Discontinued (Therapy completed)benztropine mesylate 0.5 mg oral tablet (20 sources)Anticholinergic, AntihistamineStart: 36-95-2487lzgs 1 tablet by mouth twice dailyBiotin (6 sources)Biotin ActiveBlood Glucose Monitoring Suppl (True Metrix Air Glucose Meter) w/Device kit (20 sources)Start: 54-57-6044Aaund Glucose Monitoring Suppl (True Metrix Air Glucose Meter) w/Device kit Indications: Type 2 diabetes mellitus without complication, without long-term current use of insulin ([facility]) 1 each Daily 1 kit 11/03/2024 ActiveStart: 07-02-2023 End: 09-92-0289Pelsx Glucose Monitoring Suppl (True Metrix Air Glucose Meter) w/Device kit Indications: Type 2 diabetes mellitus without complication, without long-term current use of insulin ([facility]) 1 each Daily 1 kit 07/02/2023 11/03/2024 Discontinued (Reorder)Start: 50-68-2707Gsfke Glucose Monitoring Suppl (True Metrix Air Glucose Meter) w/Device kit Indications: Type 2 diabetes mellitus without complication, without long-term current use of insulin ([facility]) 1 each Daily 1 kit 07/02/2023 ActiveStart: 98-85-9211Xlomh Glucose Monitoring Suppl (True Metrix Air Glucose Meter) w/Device kit Indications: Type 2 diabetes mellitus without complication, without long-term current use of insulin 1 each Daily 1 kit 07/02/2023 ActiveStart: 07-56-4418Nngtb Glucose Monitoring Suppl (True Metrix Air Glucose Meter) w/Device kit Indications: Type 2 diabetes mellitus without complication, without long-term current use of insulin ([facility]) 1 each Daily1 kit 07/02/2023 ActiveBlood Glucose Monitoring Suppl (True Metrix Meter) w/Device kit (2 sources)Start: 99-87-8008Ayzmy Glucose Monitoring Suppl (True Metrix Meter) w/Device kit Indications: Type 2 diabetes mellitus without complication, without long-term current use of insulin ([facility]) USE 1 TO CHECK GLUCOSE ONCE DAILY 1 kit 12/01/2024 ActivebusPIRone hydrochloride 30 mg oral tablet (20 sources)Start: 20-29-7056ixqd 1 tablet by mouth twice dailyCalcium Citrate + D 315-200 MG-UNIT (6 sources)take 1 tablet by mouth twice dailyCalcium Citrate + D 315-200 MG-UNIT 1 tablet Orally Twice a day Activecariprazine 6 mg oral capsule (20 sources)Atypical AntipsychoticStart: 11-29-2023 End: 95-56-1339Lcjcuae 4.5 MG capsule 11/29/2023 02/19/2024 DiscontinuedStart: 10-17-1089gzke 1 capsule by mouth once dailyVraylar Activecetirizine hydrochloride 10 mg oral tablet (20 sources)Histamine-1 Receptor AntagonistStart: 38-86-6529efvf 1 tablet by mouth once dailyCetirizine HCl Activecholecalciferol 0.125 mg oral capsule (20 sources)Vitamin DStart: 42-89-7989geip 1 capsule by mouth once dailyStart: 08-15-2023 End: 87-33-9019shyy 1 capsule by mouth once dailyCholecalciferol (Vitamin [...] oral tablet (17 sources)Quinolone AntimicrobialStart: 12-05-2023 End: 95-97-3126jseu 1 tablet by mouth in the morningciprofloxacin (Cipro) 500 MG tablet Indications: Left lower quadrant abdominal pain Take 1 tablet (500 mg) by mouth in the morning and 1 tablet (500 mg) before bedtime. Do all this for 10 days. 20 tablet 12/05/2023 12/15/2023 ActiveStart: 08-13-2021 End: 31-83-5517rltt 1 tablet by mouth every two hoursCiprofloxacin Hcl (Cipro) 500 mg Tablet Discontinued 500 MG PO Q12H 10 0 August 12, 2021 11:00pm August 15, 2023 9:07am administer dose at least 2 hrs before/6 hrs after dairy products, calcium, zinc,and/or iron-containing productsdocusate sodium 50 mg / sennosides, shelter 8.6 mg oral tablet (20 sources)take 1 tablet by mouth once dailysenna-docusate sodium (Senokot-S) 8.6-50 MG tablet Take 1 tablet by mouth Daily OTC PO daily Activeescitalopram 20 mg oral tablet (13 sources)Serotonin Reuptake InhibitorStart: 21-92-9900kghx 20 mg by mouth once dailyEscitalopram Oxalate Active 20 MG PO Daily June 04, 2021 1:00am Escitalopram Oxalate in am 1100 Activefenofibrate 145 mg oral tablet (20 sources)Peroxisome Proliferator Receptor alpha AgonistStart: 12-05-2019 End: 83-50-8060eafj 1 tablet by mouth once dailyFenofibrate Activefluconazole 150 mg oral tablet (5 sources)Azole AntifungalStart: 12-18-2023 End: 17-02-1306zjnpfximdow (Diflucan) 150 MG tablet Indications: Antibiotic- induced yeast infection 1 dose, repeatin 72 hours 2 tablet 12/18/2023 02/19/2024 DiscontinuedFLUoxetine 20 mg oral capsule (20 sources)Serotonin Reuptake InhibitorStart: 24-40-8831iapp 2 capsules by mouth once dailyStart: 49-16-1277icmi 1 capsule by mouth once dailyStart: 10-10-2023 End: 13-95-0152afua 1 capsule by mouth once dailyFluoxetine (Prozac) 20 mg capsule Discontinued 20 MG PO Daily October 15, 2023 11:00pm February 10, 2025 8:51amStart: 10-01-2023 End: 85-47-3620sppo 1 capsule by mouth once dailyFluoxetine 10 mg capsule Discontinued 10 MG PO Daily September 30, 2023 11:00pm October 16, 2023 12:08pm fluticasone propionate 0.05 mg/actuat metered dose nasal spray (20 sources)CorticosteroidStart: 38-42-3884tcda 2 spray(s) nasal route once dailyfluticasone (Flonase) 50 MCG/ACT nasal spray Indications: Seasonal allergies Administer 2 sprays into each nostril Daily 16 g 5 10/24/2023 Active Start: 06-04-2021 End: 04-43-4276swhr 1-2 spray(s) nasal route once daily as neededfluticasone propionate 50 mcg/actuation nasal spray,suspension spray 1 - 2 spray by intranasal route every day in each nostril as needed 50-100 MCG - Active Fluticasone Propionate Activegabapentin 600 mg oral tablet (20 sources)Anti-epileptic AgentStart: 12-08-2024 End: 49-45-9687sreh 1 tablet by mouth twice daily as neededgabapentin (Neurontin) 600 MG tablet Indications: Restless leg syndrome Take 1 tablet (600 mg) by mouth 2 (two) times a day as needed (RLS) 60 tablet 2 12/08/2024 01/07/2025 ActiveStart: 10-23-2023 End: 14-87-2594nhip 1 tablet by mouth twice daily as neededgabapentin (Neurontin) 600 MG tablet Indications: Restless leg syndrome Take 1 tablet (600 mg) by mouth 2 (two) times a day as needed (RLS) 60 tablet 2 07/25/2024 Active Start: 10-02-2023 End: 68-66-4753lkxc 1 tablet by mouth every eight hours as neededStart: 08-15-2023 End: 76-43-6175xkgo 1 tablet by mouth every six hoursGabapentin 600 mg tablet Discontinued 600 MG PO Every 6 hours August 14, 2023 11:00pm October 02, 2023 9:34amStart: 93-95-2959ahyi 1 tablet by mouth every twelve hoursGabapentin 600 MG 1 tablet Orally TWICE A DAY for 20 days Oct, ActiveStart: 11-10-2021 take 2 tablets by mouth every twelve hoursGabapentin 600 MG 2 tablets Orally bid for 20 days Oct, ActiveStart: 94-85-2331tofa 1-2 capsules by mouth twice dailyGabapentin 300 MG 1-2 capsule Orally twice a day for 30 day(s) Sep, ActiveStart: 05-33-3460ygyv 1 capsule by mouth every twenty-four hours Gabapentin 300 MG 1 capsule Orally Once a day for 30 day(s) Nov, Active End: 30-19-3646xqbw 1 tablet by mouth every eight hoursgabapentin 600 mg tablet take 1 tablet by oral route 3 times every day 600 MG - No Longer ActivehydroCHLOROthiazide 12.5 mg oral tablet (1 source)Thiazide Diuretictake 1 tablet by mouth every twenty-four hours hydroCHLOROthiazide 12.5 MG 1 tablet in the morning Orally Once a day Gdgmbw81 hr isosorbide mononitrate 30 mg extended release oral tablet (20 sources)Nitrate VasodilatorStart: 59-92-5333tplx 1 tablet by mouth every twenty-four hoursStart: 06-04-2021 End: 39-15-5831qipg 1 tablet by mouth once daily, then take 1 tablet by mouth every twenty-four hoursIsosorbide Mononitrate 30 mg tablet extended release 24 hr Discontinued 30 MG PO Daily June 04, 2021 12:00am October 02, 2023 9:56amtake 1 tablet by mouth every twenty-four hoursIsosorbide Mononitrate 10 MG 1 tablet Orally once a day for 30 day(s) Activemagnesium oxide 400 mg oral tablet (19 sources)Start: 46-58-0246yaic 1 tablet by mouth every twenty-four hours Magnesium Oxide 400 MG 1 tablet Orally Once a day for 30 day(s) Nov, Activetake 1 tablet by mouth once dailytake 1 tablet by mouth once daily Magnesium Oxide 400 (241.3 Mg) MG TAKE 1 TABLET BY MOUTH ONCE DAILY for 30 ActivemetFORMIN hydrochloride 500 mg oral tablet (6 sources)BiguanideStart: 95-48-0892bzjo 1 tablet by mouth every twenty-four hoursmetFORMIN HCl 500 mg 1 tablet with meals Orally Once a day for 30 day(s) Jan, Gdgfeg61 hr metoprolol succinate 25 mg extended release oral tablet (20 sources)beta-Adrenergic BlockerStart: 41-83-4471dxse 2 tablets by mouth once dailyStart: 71-11-1020duud 12.5 mg by mouth once dailyMetoprolol Succinate [...] oral tablet (3 sources)Nitroimidazole AntimicrobialStart: 12-05-2023 End: 41-41-4947upbw 1 tablet by mouth every eight hoursmetroNIDAZOLE (Flagyl) 500 MG tablet Indications: Left lower quadrant abdominal pain Take 1 tablet (500 mg) by mouth every 8 (eight) hours for 10 days No alcohol 30 tablet 12/05/2023 12/15/2023 ActiveMounjaro 5 MG/0.5ML solution auto-injector (2 sources)Start: 02-10-2024 End: 83-79-5120Vntfarfb 5 MG/0.5ML solution auto-injector inject 5 mg subcutaneously every 7 (seven) days for 28 days 02/10/2024 02/19/2024 Discontinuednitroglycerin 0.4 mg sublingual tablet (20 sources)Nitrate VasodilatorStart: 75-42-0925Dbxcy: 97-20-4926zqnszykbiuqqf (Nitrostat) 0.[address] 1 TABLET UNDER TONGUE FOR CHEST PAIN. CALL 911 IF NO IMPROVEMENT AFTER 5 MIN. REPEAT DOSE TWICE IF NEEDED 12/18/2023 Active Nitrostat 0.4 MG Sublingual Activeondansetron 4 mg oral tablet (1 source)Serotonin-3 Receptor AntagonistStart: 49-63-6856psfa 1 tablet by mouth three times daily as needed for nauseaZofran 4 mg 1 tablet Orally TID as needed for nausea for 5 days May, Pmcihj34 hr paliperidone 3 mg extended release oral tablet (12 sources)Atypical AntipsychoticStart: 12-27-2023 End: 24-65-7465jlfw 1 tablet by mouth once daily in the morningpaliperidone (Invega) 3 MG 24 hr tablet TAKE 1 TABLET BY MOUTH DAILY IN THE MORNING 12/27/2023 06/16/2024 Discontinued (Therapy completed)Potassium (6 sources)Potassium ActiverOPINIRole 0.25 mg oral tablet (20 sources)Nonergot Dopamine AgonistStart: 41-47-4350cpra 2 tablets by mouth once daily at bedtimeStart: 03-12-2024 End: 05-67-0550kdky 1 tablet by mouth once daily at bedtimeRopinirole 0.25 mg tablet Discontinued 0.25 MG PO Daily at bedtime 90 1 January 30, 2025 2:46pm February 10, 2025 9:05am Restless legs syndrome Restless legs syndromeStart: 10-24-2023 End: 52-42-5804hipo 1 tablet by mouth at bedtimerOPINIRole (Requip) 0.25 MG tablet Indications: Restless leg syndrome Take 1 tablet (0.25 mg) by mouth at bedtime 30 tablet 2 12/18/2023 01/17/2024 Activesacubitril 49 mg / valsartan 51 mg oral tablet (20 sources)Angiotensin 2 Receptor BlockerStart: 10-01-2023 End: 65-22-5086jngt 0.5 tablet by mouth twice dailysacubitril-valsartan (Entresto) 49-51 MG tablet Take 0.5 tablets by mouth in the morning and 0.5 tab lets before bedtime. Pt is to take 1/2 tab in morning and 1/2 tab at night to equal 1 tab per day. ActiveTirzepatide (6 sources)Start: 53-75-6839Cduwt: 68-65-9616Dfjxwoaltyx (Mounjaro) 7.5 mg/0.5 mL pen injector Active 7.5 MG SUBCUT every week March 12, 2024 1:00am Complies with drug therapyStart: 69-87-5837Pceetqturbq (Mounjaro) 5 MG/0.5ML solution pen-injector (2 sources)Start: 12-19-2023 End: 63-66-2996Vwrpsjwigun (Mounjaro) 5 MG/0.5ML solution pen-injector Indications: Type 2 diabetes mellitus with stage 4 chronic kidney disease, without long-term current use of insulin (CMS/HCC) 5 mg by Other route every 7 (seven) days for 28 days 2 mL 3 12/19/2023 01/16/2024 ActiveTirzepatide (Mounjaro) 7.5 MG/0.5ML solution auto-injector (20 sources)Start: 29-93-9755msfrek 7.5 mg by subcutaneous injection every week Tirzepatide (Mounjaro) 7.5 MG/0.5ML solution auto-injector Indications: Type 2 diabetes mellitus with other circulatory complications (HCC) INJECT 7.5MG SUBCUTANEOUSLY ONCE A WEEK 2 mL 2 11/28/2024 ActiveStart: 06-96-8011rqekfw 7.5 mg by subcutaneous injection every weekTirzepatide (Mounjaro) 7.5 MG/0.5ML solution auto-injector Indications: Type 2 diabetes mellitus with other circulatory complications (HCC) INJECT 7.5 MG SUBCUTANEOUSLY ONCE A WEEK 2 mL 1 10/08/2024 ActiveStart: 73-12-0404dzlvfv 7.5 mg by subcutaneous injection every weekTirzepatide (Mounjaro) 7.5 MG/0.5ML solution auto-injector Indications: Type 2 diabetes mellitus with other circulatory complications (HCC) INJECT 7.5 MG SUBCUTANEOUSLY UNDER THE SKIN 1 TIME PER WEEK2 mL 3 06/30/2024 ActiveStart: 32-12-2138oiezdw 7.5 mg by subcutaneous injection every weekTirzepatide (Mounjaro) 7.5 MG/0.5ML solution auto-injector Indications: Type 2 diabetes mellitus with other circulatory complications INJECT 7.5 MG SUBCUTANEOUSLY UNDER THE SKIN 1 TIME PER WEEK 2 mL 3 06/30/2024 ActiveStart: 05-66-7796oxfrio 7.5 mg by subcutaneous injection every weekTirzepatide (Mounjaro) 7.5 MG/0.5ML solution auto-injector Indications: Type 2 diabetes mellitus with other circulatory complications (CMS/HCC) Inject 7.5 mg under the skin 1 (one) time per week 2 mL3 02/19/2024 ActivetiZANidine 4 mg oral tablet (20 sources)Central alpha-2 Adrenergic AgonistStart: 08-15-2023 End: 75-21-4556jtul 1 tablet by mouth every eight hours as needed for muscle spasmsStart: 06-04-2021 End: 61-79-0642apac 1 tablet by mouth at bedtimeTizanidine 4 mg tablet Discontinued 4 MG PO Bedtime June 04, 2021 12:00am August 13, 2021 1:52pm Start: 06-04-2021 End: 11-56-7614pptb 4 mg by mouth at bedtimeTizanidine Discontinued 4 MG PO Bedtime June 04, 2021 1:00am August 13, 2021 2:52pmtiZANidine HCl Active vitamin b12 2.5 mg sublingual tablet (20 sources)Vitamin O31Xvsbf: 67-13-8690afwd 1 tablet under the tongue once dailyStart: 11-26-2024 End: 63-98-9784rcxb 1 tablet under the tongue once dailyCyanocobalamin (Vitamin B-12) 2,500 mcg tablet, sublingual Discontinued 2500 MCG SUBLINGUAL Daily November 26, 2024 8:41am November 26, 2024 8:48amStart: 03-12-2024 End: 74-67-3166Gmnbmslrclzmgg (Vitamin B-12) 2,500 mcg tablet, sublingual Discontinued 2500 MCG SUBLINGUAL Every 48 hours November 26, 2024 8:48am February 10, 2025 8:51amStart: 10-01-2023 End: 68-99-1583krbc 1 tablet under the tongue once dailyCyanocobalamin (Vitamin B-12) 2,500 mcg tablet, sublingual Discontinued 2500 MCG SUBLINGUAL Daily September 30, 2023 11:00pm March 12, 2024 9:47amStart: 75-85-8638lyve 1 tablet by mouth once dailyCyanocobalamin 500 [...] (Original)alogliptin 25 mg oral tablet (1 source)Start: 32-88-5668gsik 1 tablet by mouth every twenty-four hours Alogliptin Benzoate 25 MG 1 tablet Orally Once a day for 30 day(s) Sep, Not-Takingcalcium citrate 1040 mg oral tablet (1 source)Start: 51-34-4452rpcp 1 tablet by mouth once dailyCalcium Citrate 1040 MG 1 tablet Orally Once a day for 30 day(s) Sep, Not-Takingcarvedilol 25 mg oral tablet (1 source)alpha-Adrenergic Seema, beta-Adrenergic Blockertake 1 tablet by mouth every twelve hoursCarvedilol 25 MG 1 tablet Orally BID for 30 Not-Taking cyclobenzaprine hydrochloride 10 mg oral tablet (14 sources)Muscle RelaxantStart: 08-13-2021 End: 26-25-3206abzg 1 tablet by mouth three times daily [...] oral tablet (20 sources)Loop DiureticStart: 04-30-2023 End: 94-93-7936zszv 1 tablet by mouth once dailyFurosemide (Lasix) 20 mg tablet Discontinued 20 MG PO Daily August 14, 2023 11:00pm November 26, 2024 8:42am take 1 tablet by mouth every twenty-four hoursLasix 20 MG 1 tablet Orally Once a day ActiveglipiZIDE 5 mg oral tablet (20 sources)SulfonylureaStart: 06-04-2021 End: 26-66-7834stgb 1 tablet by mouth once dailyGlipizide 5 mg tablet Discontinued 5 MG PO Daily June 04, 2021 12:00am August 15, 2023 9:08amtake 0.5 tablet by mouth once dailyglipiZIDE 5 MG 1/2 tablet Orally Once a day Active lamoTRIgine 200 mg oral tablet (15 sources)Mood Stabilizer, Anti-epileptic AgentStart: 08-15-2023 End: 18-47-4095dgyr 1 tablet by mouth once dailyLamotrigine (Lamictal) 200 mg tablet Discontinued 200 MG PO Daily August 14, 2023 11:00pm 2023 9:32amtake 1 tablet by mouth every twenty-four hoursLaMICtal 200 MG 1 tablet Orally Once a day Activelidocaine 0.05 mg/mg medicated patch (12 sources)Antiarrhythmic, Amide Local AnestheticStart: 06-24-2022 End: 29-41-6417ojzpq 1 dose topically once daily as needed for painLidocaine 5 % adhesive patch,medicated Discontinued 1 PATCH TOPICAL Daily as needed for pain 30 June 24, 2022 12:00am August 15, 2023 9:08am leave on most painful area for up to 12 hrslinagliptin 5 mg oral tablet (1 source)Dipeptidyl Peptidase 4 InhibitorStart: 46-61-7774nvet 1 tablet by mouth every twenty-four hoursTradjenta 5 MG 1 tablet Orally Once a day for 30 day(s) Nov, Not-Takinglisinopril 40 mg oral tablet (20 sources)Angiotensin Converting Enzyme InhibitorStart: 06-04-2021 End: 28-80-7563fflm 1 tablet by mouth once dailyLisinopril 40 mg tablet Discontinued 40 MG PO Daily June 04, 2021 12:00am August 15, 2023 9:09am methylPREDNISolone 4 mg oral tablet (12 sources)CorticosteroidStart: 06-24-2022 End: 86-99-4460Jiaboypxexkvfcagpw 4 mg tablets,dose pack Discontinued 0 PO .COMPLEX June 24, 2022 12:00am August 15, 2023 9:09am orally per package directionsStart: 06-24-2022 End: 76-19-1331Fgfwcundotoflujtoq Discontinued 0 PO .COMPLEX June 24, 2022 1:00am August 15, 2023 10:09am orally per package directionsStart: 06-24-2022 Methylprednisolone Active 0 PO .COMPLEX June 24, 2022 1:00am orally per package directionsStart: 50-72-8851Igvjwkujsczlrdcvcp Active 0 PO .COMPLEX June 24, 2022 12:00am orally per package directionsmirtazapine 15 mg oral tablet (15 sources)Start: 06-04-2021 End: 43-10-4201sgek 2 tablets by mouth at bedtimeMirtazapine 15 mg tablet Discontinued 30 MG PO Bedtime June 04, 2021 12:00am August 15, 2023 9:11am Start: 06-04-2021 End: 50-96-9376xrcc 30 mg by mouth at bedtimeMirtazapine Discontinued 30 MG PO Bedtime June 04, 2021 1:00am August 15, 2023 10:11amMirtazapine before bed2129 Activemometasone furoate 0.05 mg/actuat metered dose nasal spray (9 sources)CorticosteroidStart: 10-01-2023 End: 54-97-2154zsxj 1 spray(s) nasal route once dailyMometasone (Allergy Nasal (Mometasone)) 50 mcg/actuation spray,non-aerosol Discontinued 2 SPRAY INTRANASAL Daily September 30, 2023 11:00pm October 16, 2023 12:11pm administer into each nostrilMounjaro 5 MG/0.5ML solution pen-injector (8 sources)Start: 10-15-2023 End: 16-01-3847Jbixndua 5 MG/0.5ML solution pen-injector 5 mg by Other route every 7 (seven) days 10/15/2023 12/19/2023 Discontinued (Reorder)Start: 15-46-1846Sjopzycb 5 MG/0.5ML solution pen-injector 5 mg by Other route every 7 (seven) days 10/15/2023 ActiveMultivitamin preparation (2 sources)Start: 81-95-7234ysss 1 tablet by mouth once dailyMulti-Vitamin - 1 tablet Orally Once a day for 30 day(s) Sep, Not-TakingStart: 03-22-2018 take 1 tablet by mouth once dailyMulti-Vitamin - 1 tablet Orally Once a day for 30 day(s) Mar, ActiveoxyCODONE hydrochloride 5 mg oral tablet (14 sources)Opioid AgonistStart: 08-13-2021 End: 24-43-2784qjxj 5-10 mg by mouth every six hours [...] Proliferator Receptor gamma Agonist, ThiazolidinedioneStart: 08-15-2023 End: 90-05-6315aazg 1 tablet by mouth once dailyPioglitazone (Actos) 45 mg tablet Discontinued 45 MG PO Daily August 14, 2023 11:00pm February 10, 2025 8:51amStart: 06-04-2021 End: 55-80-2855Ebxwyrscfpgv 30 mg tablet Discontinued 45 MG PO Daily June 04, 2021 12:00am August 15, 2023 9:05amStart: 06-04-2021 End: 99-11-9270levq 45 mg by mouth once dailyPioglitazone Discontinued 45 MG PO Daily June 04, 2021 1:00am August 15, 2023 10:05amtake 1 tablet by mouth every twenty-four hoursActos 45 MG 1 tablet Orally Once a day ActivePioglitazone HCl Activepramipexole dihydrochloride 0.25 mg oral tablet (9 sources)Nonergot Dopamine AgonistStart: 10-01-2023 End: 83-33-4815uykt 1 tablet by mouth once daily at bedtimePramipexole 0.25 mg tablet Discontinued 0.25 MG PO Daily at bedtime September 30, 2023 11:00pm October 12:12pmpredniSONE 10 mg oral tablet (14 sources)Start: 08-13-2021 End: 36-22-2281Mbrexnkzuc 10 mg tablets,dose pack Discontinued 1 dose pk PO per package directions 30 0 August 12, 2021 11:00pm June 24, 2022 5:53pm take 4 tabs for 3 days then take 3 tabs for 3 days then take 2 tabs for 3 days then take 1 tab for 3 daysStart: 08-13-2021 End: 55-49-4588Ltfoqoqfeh Discontinued 1 dose pk PO per package directions August 13, 2021 12:00am June 6:53pm take 4 tabs for 3 days then take 3 tabs for 3 days then take 2 tabs for 3 days then take 1 tab for 3 daysStart: 08-13-2021 End: 16-62-9770Uukxkpqdjk Discontinued 1 dose pk PO per package directions August 12, 2021 11:00pm June 5:53pm take 4 tabs for 3 days then take 3 tabs for 3 days then take 2 tabs for 3 days then take 1 tab for 3 daysStart: 53-04-7904Swbncxwlhy Active 1 dose pk PO per package directions August 13, 2021 12:00am take 4 tabs for 3days then take 3 tabs for 3 days then take 2 tabs for 3 days then take 1 tab for 3 daysspironolactone 25 mg oral tablet (20 sources)Aldosterone AntagonistStart: 10-01-2023 End: 71-84-8162rmzt 1 tablet by mouth once dailySpironolactone 25 mg tablet Discontinued 25 MG PO Daily September 30, 2023 11:00pm October 02, 2023 9:55am On Hold: Until cleared by NephrologyStart: 95-55-1137ejmk 50 mg by mouth once daily Spironolactone Active 50 MG PO Daily June 04, 2021 1:00amSpironolactone ActiveTirzepatide (9 sources)Start: 10-01-2023 End: 20-99-0977Ebkaskbfydx (Mounjaro) 2.5 mg/0.5 mL pen injector Discontinued 2.5 MG SUBCUT .weekly September 30, 2023 11:00pm October 16, 2023 12:12pmStart: 10-01-2023 End: 30-05-3059Paeudilnqwg (Mounjaro) 2.5 mg/0.5 mL pen injector Discontinued 2.5 MG SUBCUT .weekly October 01, 2023 12:00am October 16, 2023 1:12pmStart: 24-48-9411Mxzdzwqjawd (Mounjaro) 2.5 mg/0.5 mL pen injector Active 2.5 MG SUBCUT .weekly October 01, 2023 12:00amTirzepatide (14 sources)Start: 03-12-2024 End: 99-62-3508Jrsmxpozcbt (Mounjaro) 5 mg/0.5 mL pen injector Discontinued 7.5 MG SUBCUT every week March 12, 2024 9:32am March 12, 2024 9:38amStart: 03-12-2024 End: 31-92-8219Dfhtdvmmdat (Mounjaro) 5 mg/0.5 mL pen injector Discontinued 7.5 MG SUBCUT every week March 12, 2024 10:32am March 12, 2024 10:38am Start: 10-16-2023 End: 60-28-1969Gbxbnqwssap (Mounjaro) 5 mg/0.5 mL pen injector Discontinued 5 MG SUBCUT every week October 15, 2023 11:00pm March 12, 2024 9:38amStart: 10-16-2023 End: 15-46-2036Rmzboorpudt (Mounjaro) 5 mg/0.5 mL pen injector Discontinued 5 MG SUBCUT every week October 16, 2023 12:00am March 12, 2024 10:38amStart: 83-77-2316Uwjartlyseg (Mounjaro) 5 mg/0.5 mL pen injector Active 5 MG SUBCUT every week October 16, 2023 12:00amTriamcinolone (3 sources)CorticosteroidStart: 10-01-2023 End: 66-84-5779Swussjqprxgjc Acetonide Discontinued 110 MCG INTRANASAL Daily October 01, 2023 12:00am October 16, 2023 1:12pmStart: 02-68-4616Qxnjqgkbcxcri Acetonide Active 110 MCG INTRANASAL Daily October 01, 2023 12:00amTriamcinolone Acetonide 55 mcg/actuation aerosol (6 sources)Start: 10-01-2023 End: 70-70-1331Awjpxotnevrnt Acetonide 55 mcg/actuation aerosol Discontinued 110 MCG INTRANASAL Daily September 30, 2023 11:00pm October 16, 2023 12:12pmStart: 10-01-2023 End: 57-09-0085Proromatuunko Acetonide 55 mcg/actuation aerosol Discontinued 110 MCG INTRANASAL Daily October 01, 2023 12:00am October 16, 2023 1:12pm Problems Active Problems Problem ClassificationProblemDateDocumented DateEpisodic/ChronicAcute and unspecified renal failure (20 sources)Acute renal failure syndrome; Translations: [Acute kidney failure, unspecified]Onset: 933913-30-9303FaiqwtrbUphygmdp reactions (12 sources)Environmental allergy; Translations: [Other allergy status, other than to drugs and biological substances]EpisodicAnxiety disorders (20 sources)Generalized anxiety disorder; Translations: [Generalized anxiety disorder]Onset: 070062-05-5599QhzakgjUdnvmsd kidney disease (20 sources)Chronic kidney disease stage 3; Translations: [Chronic kidney disease, stage 3 unspecified]Onset: 753175-06-9319EnhiutaIkywcjc kidney disease (2 sources)Chronic kidney disease; Translations: [Chronic kidney disease, stage 3b]Onset: 21-21-2922Ibhrrkgpuf heart failure; nonhypertensive (20 sources)Chronic diastolic heart failure; Translations: [Chronic diastolic (congestive) heart failure]Onset: 690581-49-1332HbffhvfGpbbhzrz atherosclerosis and other heart disease (20 sources)Coronary arteriosclerosis; Translations: [Atherosclerotic heart disease of [place] coronary artery without angina pectoris]Onset: 09-11-2022 10-98-2702KptarkhTqzpcrit mellitus with complications (20 sources)Type 2 diabetes mellitus; Translations: [Type 2 diabetes mellitus with hypoglycemia without coma]Onset: 10-02-2021 Resolved: 45-30-7760KcfbqzkGhdkknrd mellitus without complication (1 source)Type 2 diabetes mellitus without complications; Translations: [TYPE 2 DM WITHOUT COMPLICATIONS]Onset: 81-85-0549PrftzndTaecfnibf of lipid metabolism (20 sources)Dyslipidemia; Translations: [Hyperlipidemia, unspecified]Onset: 05-17-0122DktpdnpQwjzoywwzzplpw and diverticulitis (20 sources)Diverticulosis of large intestine; Translations: [Diverticulosis of large intestine without perforation or abscess without bleeding]Onset: 763289-14-5556WmdaxodIfpfmurhlo disorders (20 sources)Gastroesophageal reflux disease; Translations: [Gastro-esophageal reflux disease without esophagitis]Onset: 54-04-4886ArcdhzxIwfemzoua hypertension (20 sources)Essential hypertension; Translations: [Essential (primary) hypertension]Onset: 384350-33-5837UokpflpJgrxa and electrolyte disorders (20 sources)Hyperkalemia; Translations: [Hyperkalemia]Onset: 31-72-2081Zalyhynk Headache; including migraine (20 sources)Tension-type headache; Translations: [Tension-type headache, unspecified, not intractable]Onset: 867470-43-8420SmddtvhPjcjaqejpdil with complications and secondary hypertension (20 sources)Hypertensive renal disease; Translations: [Hypertensive chronic kidney disease with stage 1 throughstage 4 chronic kidney disease, or unspecified chronic kidney disease]Onset: 18-75-9042DhaprvrXfiqapi and fatigue (20 sources)Decline in functional status; Translations: [Other malaise]Onset: 09-11-2023 Resolved: 885282-94-9290VgwntfbkJlge disorders (20 sources)Bipolar disorder, unspecified; Translations: [Depressive disorder] Onset: 03-22-2012 Resolved: 429236-04-7774IejivncEdpnfrfhglj chest pain (20 sources)Chest pain; Translations: [Other chest pain]Onset: 09-11-2022 40-14-9783ZketemogGtiepqqbter deficiencies (20 sources)Vitamin D deficiency; Translations: [Vitamin D deficiency, unspecified]Onset: 303275-19-0566JarixdcQxouoqqfkwt deficiencies (20 sources)Cobalamin deficiency; Translations: [Deficiency of other specified B group vitamins]Onset: 833029-48-0612FnvacwvxCxvsi aftercare (1 source)nursing home (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; Translations: [RETIREMENT CURRENT USE OF ASPIRIN]Onset: 16-48-2491GoxuvxroVucjc aftercare (1 source)nursing home (current) use of oral hypoglycemic drugs; Translations: [ENRICHMENT DIRECTOR USE ORAL HYPOGLYCEMIC DX]Onset: 24-28-1430XggdwpdfDuvri aftercare (1 source)Other half-way (current) drug therapy; Translations: [OTH RETIREMENT CURRENT DRUG THERAPY]Onset: 26-00-7464OckyfzhxWulnk gastrointestinal disorders (20 sources)Irritable bowel syndrome with diarrhea; Translations: [Irritable bowel syndrome with diarrhea]Onset: 549749-52-7638OtdqplvRkmms hereditary and degenerative nervous system conditions (20 sources)Restless legs; Translations: [Restless legs syndrome]Onset: 417043-68-4418ZigefoeWgnhp hereditary and degenerative nervous system conditions (1 source)Restless legs syndrome; Translations: [RESTLESS LEGS SYNDROME]Onset: 99-97-2628IykqiatKpoto liver diseases (1 source)Fatty (change of) liver, not elsewhere classified; Translations: [FATTY CHANGE LIVER NEC]Onset: 91-21-4373XjcxtevFxehy lower respiratory disease (4 sources)Shortness of breath; Translations: [SHORTNESS OF BREATH]Onset: 33-83-7665HxkpytxvSvakq nervous system disorders (12 sources)Chronic pain; Translations: [Other chronic pain]ChronicOther nervous system disorders (12 sources)Sleep-wake schedule disorder, delayed phase type; Translations: [Circadian rhythm sleep disorder, delayed sleep phase type]ChronicOther nervous system disorders (4 sources)Other chronic painOnset: 11-10-2021 Resolved: 74-72-5804DhrqrbhSsfwr nervous system disorders (1 source)Circadian rhythm sleep disorder, delayed sleep phase typeChronicOther non-traumatic joint disorders (1 source)Chronic pain of left upper limb; Translations: [Pain in left shoulder] 57-33-4472GyskvircDrnik nutritional; endocrine; and metabolic disorders (20 sources)Hypomagnesemia; Translations: [Hypomagnesemia]Onset: 04-30-2023 82-71-0702YmsswzoBixlo nutritional; endocrine; and metabolic disorders (20 sources)Morbid obesity; Translations: [Morbid (severe) obesity due to excess calories]97-69-5657NymccgwMhajm nutritional; endocrine; and metabolic disorders (8 sources)Morbid (severe) obesity due to excess calories; Translations: [Morbid obesity]Onset: 48-62-5259UsgibpeBqirt nutritional; endocrine; and metabolic disorders (1 source)Body mass index (BMI) 50.0-59.9, adult; Translations: [BODY MASS INDEX BMI 50.0-59.9 ADULT]Onset: 11-93-0181DiutmmkEipom nutritional; endocrine; and metabolic disorders (1 source)Body mass index (BMI) 45.0-49.9, adult; Translations: [BODY MASS INDEX BMI 45.0-49.9 ADULT]Onset: 06-86-9619QmolyymRibnv nutritional; endocrine; and metabolic disorders (6 sources)Hypomagnesemia; Translations: [Disorders of magnesium metabolism] Onset: 431950-34-1177VwhkqcwNbhqt nutritional; endocrine; and metabolic disorders (20 sources)Severe obesity; Translations: [Class 3 severe obesity due to excess calories with serious comorbidity and body mass index (BMI) of 45.0 to 49.9 in adult ([facility])]Onset: 003279-62-3919WxyfajkTdjcy nutritional; endocrine; and metabolic disorders (11 sources)Obesity caused by energy imbalance; Translations: [Morbid (severe) obesity due to excess calories]Onset: 778515-78-0609YsmlfgkUppyp nutritional; endocrine; and metabolic disorders (2 sources)Body mass index (BMI) 39.0-39.9, adultOnset: 691862-94-3870 ChronicOther nutritional; endocrine; and metabolic disorders (2 sources)Body mass index (BMI) 40.0-44.9, adultOnset: 061750-58-6950 ChronicOther nutritional; endocrine; and metabolic disorders (20 sources)Hyperuricemia; Translations: [Hyperuricemia without signs of inflammatory arthritis and tophaceous disease]Onset: 207596-25-4341 EpisodicOther screening for suspected conditions (not mental disorders or infectious disease) (20 sources)Encounter for screening mammogram for malignant neoplasm of breast; Translations: [Abnormal findings on diagnostic imaging of other parts of musculoskeletal system]Onset: 84-45-1785HfknsaooBiimj upper respiratory disease (20 sources)Seasonal allergy; Translations: [Other seasonal allergic rhinitis] Onset: 017379-25-2664OlbjqlwYhrsjjhi codes; unclassified (12 sources)Sleep apnea; Translations: [Sleep apnea, unspecified]ChronicResidual codes; unclassified (20 sources)Obstructive sleep apnea syndrome; Translations: [Obstructive sleep apnea (adult) (pediatric)]Onset: 867828-55-0847IwmhiydRzhmscsu codes; unclassified (2 sources)Obstructive sleep apnea (adult) (pediatric); Translations: [OBSTRUCTIVE SLEEP APNEA]Onset: 63-91-1408OvsuwleWhybpkty codes; unclassified (15 sources)Localized edema; Translations: [Localized edema]20-03-4521Kpylwnue Spondylosis; intervertebral disc disorders; other back problems (20 sources)Intervertebral disc prolapse; Translations: [Other intervertebral disc displacement, thoracolumbar region]Onset: 09-29-2021 Resolved: 96-70-5599XafifwvQdpahotxcnm; intervertebral disc disorders; other back problems (20 sources)Radiculopathy, lumbar region; Translations: [Chronic low back pain] Onset: 08-30-2021 Resolved: 96-43-2925FbondqwtPdjtzev (2 sources)Syncope and collapse; Translations: [Syncope and collapse]Onset: 27-56-3565JncreayhOffxtwlnsuxw (1 source)CHRN KIDNEY DISEASE STG 3 UNSP; Translations: [CHRN KIDNEY DISEASE STG 3 UNSP]Onset: 61-83-9158Imlnylnocked (1 source)LOW BACK PAIN, UNSPECIFIED; Translations: [LOW BACK PAIN, UNSPECIFIED] Onset: 65-69-5313Wzeeoxkcyyzw (3 sources)CONTACT W/AND (SUSP) EXPOS COVID-19; Translations: [CONTACT W/AND (SUSP) EXPOS COVID-19]Onset: 51-12-1876Xwrbexlntwtb (1 source)Chronic pain of left upper limbUnclassified (2 sources)M25.512 - Pain in left shoulder,G89.29 - Other chronic pain Past or Other Problems Problem ClassificationProblemDateDocumented DateEpisodic/ChronicAbdominal hernia (20 sources)Ventral hernia without obstruction or gangrene; Translations: [Disorder of abdominal wall]Onset: 052031-80-1412MfpnlmgeIycglhcla pain (20 sources)Unspecified abdominal pain; Translations: [Left lower quadrant pain] Onset: 02-21-2022 Resolved: 94-80-0649AfynragcEbckesli of urinary tract (20 sources)Kidney stone; Translations: [Calculus of kidney]Onset: 07-02-2023 38-91-1592FrqawqsuAoobzip dysrhythmias (20 sources)Bradycardia; Translations: [Bradycardia, unspecified]Onset: 104075-15-8405WzbvhpumKxohcklyxh and other anemia (4 sources)Anemia, unspecified; Translations: [ANEMIA UNSPECIFIED]Onset: 33-89-0305DbkwyieaXglhvmbvww and other anemia (20 sources)Anemia; Translations: [Anemia, unspecified]Onset: 04-30-2023 Resolved: 933320-00-5531MnpzrmndEejegeoom of teeth and jaw (20 sources)Infection of tooth; Translations: [Periapical abscess without sinus] Onset: 09-20-2023 Resolved: 068090-90-5699IihgwqgiEwujsxtrmjpdp symptoms and ill-defined conditions (20 sources)Delay when starting to pass urine; Translations: [Hesitancy of micturition]Onset: 200142-58-6460KyjqcweaFpxmwppy; including migraine (1 source)Headache; including migraineIntestinal infection (20 sources)Enterocolitis due to Clostridium difficile, not specified as recurrent; Translations: [Clostridium difficile diarrhea]Onset: 12-25-2021 Resolved: 969335-12-5392EdwduvomPyfy disorders (20 sources)Mood disordersOnset: 597318-06-4674Khtdtoo (20 sources)Opportunistic mycosis; Translations: [Candidiasis, unspecified] Onset: 10-03-2023 Resolved: 276785-05-4887PwxsccrzThkv wounds of head; neck; and trunk (4 sources)Unspecified open wound of unspecified part of neck, initial encounter; Translations: [UNS OPEN WOUND UNS PART NECK INIT]Onset: 01-12-2022 EpisodicOther and unspecified benign neoplasm (20 sources)History of polyp of colon; Translations: [History of colon polyps] Onset: 401900-94-3828PcizjofbTepzi and unspecified benign neoplasm (20 sources)Polyp of cecum; Translations: [Benign neoplasm of cecum]Onset: 252609-59-5340XmlzzvseOkoqo connective tissue disease (1 source)Pain in right leg; Translations: [PAIN IN RIGHT LEG]Onset: 05-31-2022 EpisodicOther connective tissue disease (1 source)Arthrodesis status; Translations: [ARTHRODESIS STATUS]Onset: 41-41-1974VwcogftiOjwus connective tissue disease (1 source)Myalgia, unspecified site; Translations: [MYALGIA UNSPECIFIED SITE] Onset: 17-26-5987UawonwriJqfke connective tissue disease (20 sources)Swelling of bilateral lower limbs; Translations: [Other specified soft tissue disorders]Onset: 04-30-2023 Resolved: 327918-10-9083MwcozyxcZnoxw connective tissue disease (20 sources)Bilateral heel pain; Translations: [Pain in right foot]Onset: 426036-95-2065AvsodyiaZfvtx connective tissue disease (20 sources)Spasm; Translations: [Other muscle spasm]Onset: 907385-09-7494 EpisodicOther connective tissue disease (20 sources)Foot pain; Translations: [Pain in left foot]Onset: 07-15-2024 07-88-8227IoxywglvUzlsp gastrointestinal disorders (4 sources)Diarrhea, unspecified; Translations: [DIARRHEA UNSPECIFIED]Onset: 26-56-7459XjycrffbTaulz gastrointestinal disorders (20 sources)History of bariatric surgical procedure; Translations: [Bariatric surgery status]Onset: 721388-39-1554VfvtfcgjWdior liver diseases (20 sources)Elevated liver enzymes level; Translations: [Abnormal levels of other serum enzymes]Onset: 565103-45-0717SkcvhumhRkvfr lower respiratory disease (1 source)Dyspnea, unspecified; Translations: [DYSPNEA UNSPECIFIED]Onset: 64-59-3076JpohwkwfGjvmv lower respiratory disease (20 sources)Dyspnea; Translations: [Dyspnea, unspecified]Onset: 07-02-2023 44-32-4301YcbppmqtJujhm non-traumatic joint disorders (20 sources)Acute ankle pain; Translations: [Pain in left ankle and joints of left foot]Onset: 756615-78-2703FuhhbgdqYcisl nutritional; endocrine; and metabolic disorders (20 sources)Body mass index 40+ - severely obese; Translations: [Body mass index (BMI) 50.0-59.9, adult]Onset: 05-03-2023 Resolved: 018756-75-9008KjpykuzLmair nutritional; endocrine; and metabolic disorders (6 sources)Hyperuricemia without signs of inflammatory arthritis and tophaceous disease; Translations: [Other abnormal blood chemistry]Onset: 03-11-2024 34-56-8816JhgwmokgHbfig upper respiratory infections (20 sources)Acute pansinusitis; Translations: [Acute pansinusitis, unspecified] Onset: 03-06-2024 Resolved: 646534-57-0596GjgitatcXqazsaxi codes; unclassified (8 sources)Localized edema; Translations: [Edema]Onset: 12-57-4134Fstdjnlj Residual codes; unclassified (1 source)Family history of malignant neoplasm of other organs or systems; Translations: [FAM HX MALIG NEOPLASM OTH ORGN/SYS]Onset: 90-67-5394Aluesatt Residual codes; unclassified (1 source)Acquired absence of both cervix and uterus; Translations: [ACQUIRED ABSENCE BOTH CERVIX AND UTERUS]Onset: 83-29-1917EwypgwnqItpbxfiv codes; unclassified (1 source)Acquired absence of ovaries, bilateral; Translations: [ACQUIRED ABSENCE OVARIES BILATERAL]Onset: 22-18-4859LilyaldwNtotgpyo codes; unclassified (4 sources)Procedure and treatment not carried out due to patient leaving prior to being seen by health care provider; Translations: [PROC AND TX NOT CARRIED OUT PT LEAVE]Onset: 73-91-3765GtgdldrzCsbhmvyh codes; unclassified (20 sources)Edema of lower extremity; Translations: [Localized edema]Onset: 071479-30-4857OpprtxzqElvtafng codes; unclassified (20 sources)Insomnia; Translations: [Insomnia, unspecified]Onset: 07-02-2023 27-69-9445XvweirokHuerclzj codes; unclassified (20 sources)H/O: urinary disease; Translations: [Personal history of other specified conditions]Onset: 07-02-2023 Resolved: 477340-82-6554WeetnhoeCekgsbjqmadc (1 source)CONTACT W/AND (SUSP) EXPOS COVID-19; Translations: [CONTACT W/AND (SUSP) EXPOS COVID-19]Onset: 07-80-2457Tkqnmyyezbdo (1 source)Periodic exam (chief complaint)Onset: 41-76-5474Vpoyzevdyjdo (1 source)Endo (chief complaint)Onset: 27-99-2119Ojpbeiurbnjg (1 source)fill (chief complaint)Onset: 77-84-3013Oilhnac tract infections (20 sources)Escherichia coli urinary tract infection; Translations: [Urinary tract infection, site not specified]Onset: 07-05-2023 Resolved: 726416-94-9094Dzaencig Results Test NameValueInterpretationReference RangeFacilityActivated partial thromboplastin time (aPTT) in platelet poor plasma by coagulation aOrdered By: Andrius Shieldsraitis on 44-49-6113eVIM Coag (PPP) [Time]27.9 s22.3-36.2FMercy Health Tiffin HospitalBasophils Auto (Bld) [#/Vol]Ordered By: Andrius Giedraitis on 41-88-0906Mjiangaya (Bld) [#/Vol]0.1 10 3/uL0.0-0.1FMercy Health Tiffin HospitalBasophils/100 WBC Auto (Bld)Ordered By: Andrius Giedraitis on 92-58-6200Kgmavxqnr/100 WBC (Bld)1.0 %0.2-2.0[facility] HospitalEosinophils/100 WBC Auto (Bld)Ordered By: Andrius Giedraitis on 49-77-1157Xrrmqgkgssx/100 WBC (Bld)3.9 %0.9-7.0[facility] Erythrocyte distribution width Auto (RBC) [Ratio]Ordered By: Andrius Giedraitis on 01-06-1212Wklbvjtoncq distribution width (RBC) [Ratio]12.8 %11.0-15.0 [facility]S HospitalGlomerular filtration rate (GFR) estimation in non- AmericanOrdered By: Andrius Giedraitis on 81-98-9813DLJ/1.73 sq M.predicted among non-blacks MDRD (S/P/Bld) [Vol rate/Area]46 mL/min/{1.73_m2} Low>=60 mL/min/1.73m 2FMercy Health Tiffin HospitalHematocrit Auto (Bld) [Volume fraction]Ordered By: Marcella Conway on 58-14-3881Vjlcafukzj (Bld) [Volume fraction]34.8 %Low36.0-48.0St[facility] HospitalHemoglobin [Mass/volume] in BloodOrdered By: Marcella Conway on 07-07-7633Rneflftlso (Bld) [Mass/Vol]11.3 g/dLLow12.0-16.0St. [facility]'S HospitalINR in Platelet poor plasma by Coagulation assayOrdered By: Marcella Conway on 00-62-3695WMQ Coag (PPP) [Relative time]1.01 {INR}[facility]'S HospitalComment on above:DESIRED INR:2.0-3.0 CONDITIONS NOT LISTED BELOW2.5-3.5 FOR PROSTHETIC HEART VALVE REPLACEMENT2.5-3.5 RECURRENT THROMBOSISLaboratory - Chemistry and Chemistry - challengeOrdered By: Marcella Conwya on 01-13-2025 Calcium [Mass/Vol]9.4 mg/dL8.5-10.1FMercy Health Tiffin HospitalChloride [Moles/Vol]108 mmol/GJnfz16-633OimksudeqSt. Rita'S HospitalCO2 [Moles/Vol] 27.8 mmol/L21.0-32.0St[facility] HospitalCreatinine [Mass/Vol]1.23 mg/dLHigh0.55-1.02St. [facility]S HospitalGFR/1.73 sq M.predicted MDRD (S/P/Bld) [Vol rate/Area]55 mL/min/{1.73_m2}Low>=60 mL/min/1.73m 2FMercy Health Tiffin HospitalGlucose [Mass/Vol]92 mg/zO53-707UbovbtoweSt. Rita'S HospitalPotassium [Moles/Vol]4.5 mmol/L3.5-5.1FSt. Charles Hospitalodium [Moles/Vol]143 mmol/B944-866UipjlnipwSt. Rita'S HospitalUrea nitrogen [Mass/Vol]28.0 mg/dLHigh7.0-18.0St. [facility] HospitalUrea nitrogen/Creatinine [Mass ratio]22.8 mg/mgSt. Rita'S Hospital Laboratory - Hematology and Cell countsOrdered By: Andrius Giedraitis on 97-13-5582Kxnaefad granulocytes/100 WBC (Bld)0.2 %0.0-0.5FMercy Health Tiffin HospitalLeukocytes [#/volume] corrected for nucleated erythrocytes in Blood by Automated counOrdered By: Andrius Giedraitis on 01-34-6528HGM corrected for nucl RBC Auto (Bld) [#/Vol]4.9 10 3/uL4.0-11.0St[facility] HospitalLymphocytes Auto (Bld) [#/Vol]Ordered By: Andrius Giedraitis on 01-13-2025 Lymphocytes (Bld) [#/Vol]1.6 10 3/uL1.2-3.8[facility] Lymphocytes/100 WBC Auto (Bld)Ordered By: Andrius Giedraitis on 01-13-2025 Lymphocytes/100 WBC (Bld)33.1 %20.5-60.0[facility] Auto (RBC) [Entitic mass]Ordered By: Andrius Giedraitis on 13-90-7793DMZ (RBC) [Entitic mass]30.1 pg26.7-34.0[facility] HospitalHC Auto (RBC) [Mass/Vol]Ordered By: Andrius Giedraitis on 27-55-1059BLAY (RBC) [Mass/Vol]32.5 g/dL29.9-35.2FMercy Health Tiffin HospitalMCV Auto (RBC) [Entitic vol] Ordered By: Andrius Giedraitis on 84-54-6613YJT (RBC) [Entitic vol]92.8 fL 81.0-99.0[facility] HospitalMonocytes Auto (Bld) [#/Vol]Ordered By: Andrius Giedraitis on 39-57-2609Fwkqydqvp (Bld) [#/Vol]0.3 10 3/uL0.3-0.8 [facility] HospitalMonocytes/100 WBC Auto (Bld)Ordered By: Andrius Giedraitis on 55-18-0255Eqxcznxvd/100 WBC (Bld)6.7 %1.7-12.0St[facility] HospitalNeutrophils Auto (Bld) [#/Vol]Ordered By: Andrius Giedraitis on 59-11-0252Laeptybelsw (Bld) [#/Vol]2.7 10 3/uL1.4-6.5FMercy Health Tiffin HospitalNeutrophils/100 WBC Auto (Bld)Ordered By: Andrius Giedraitis on 01-13-2025 Neutrophils/100 WBC (Bld)55.1 %43.0-75.0[facility]S HospitalNo Panel InformationOrdered By: Andrius Giedraitis on 38-97-6385Syinuayrvid # (Auto)0.2 10 3/uL0.0-0.7FMercy Health Tiffin HospitalImmature Granulocyte # (Auto)0.01 10 3/uL0.00-0.03St. [facility]S HospitalPlatelet mean volume Auto (Bld) [Entitic vol]Ordered By: Andrius Giedraitis on 22-84-8785Aqulxnzj mean volume (Bld) [Entitic vol]10.9 fL9.5-13.5FMercy Health Tiffin Hospital Platelets Auto (Bld) [#/Vol]Ordered By: Andrius Giedraitis on 01-13-2025 Platelets (Bld) [#/Vol]253 10 3/aE138-842ZedorxxynSt. Rita'S Hospital Prothrombin time (PT)Ordered By: Andrius Giedraitis on 54-96-0817EE Coag (PPP) [Time]10.7 s9.0-11.6FMercy Health Tiffin HospitalRBC Auto (Bld) [#/Vol] Ordered By: Andrius Giedraitis on 13-04-4737TNX (Bld) [#/Vol]3.75 10 6/uLLow 4.20-5.40[facility] - Andersonerum or plasma anion gap determinationOrdered By: Andrius Giedraitis on 58-47-8337Spkdw gap [Moles/Vol] 11.7 mmol/LFMercy Health Tiffin HospitalANESon 26-02-4802TFDN Attestation signed by Tk Godoy MD at 12/12/2024 8:20 AM Tk Godoy MD, MPH, [facility], [facility], [facility] Interventional Cardiology Pager Email: [email or web address] Patient: Sherly Humphreys Procedure Information Date/Time: 12/12/24829 Procedure: Coronary angiography (Left) - PC APPROVED 11/26-12/25 Location: [facility] CL[facility] 3 / [facility] (Cath) Providers: Tk Godoy MD [...] attending. Additional Equipment Requests Austin Earl MD Compass Operator, PGY-4 [facility] 12/12/24 8:07 [facility] 01-[facility]3683ER Attestation signed by Tk Godoy MD at [...] me. Additional Comments: Tk Godoy MD, MPH, [facility], [facility], [facility] Interventional Cardiology Pager Email: [email or web address] History Of Present Illness Sherly Humphreys is [...] Resource Strain: High Risk (11/18/2024) Received from [facility] Overall Financial Resource Strain (CARDIA) Difficulty of Paying Living Expenses: Hard Food Insecurity: Food Insecurity Present (11/18/2024) Received from [facility] Hunger Vital Sign Worried About Running Out of Food in the Last Year: Often true Ran Out of Food in the Last Year: Often true Transportation Needs: No Transportation Needs (11/18/2024) Received from [facility] PRAPARE - Transportation Lack of Transportation (Medical): No Lack of Transportation (Non-Medical): No Physical Activity: Inactive (11/18/2024) Received from [facility] Exercise Vital Sign Days of Exercise per Week: 0 days Minutes of Exercise per Session: 0 min Stress: Stress Concern Present (11/18/2024) Received from [facility] [employer] [place] [employer] - Occupational Stress Questionnaire Feeling of Stress : To some extent Social Connections: Socially Isolated (11/18/2024) Received from [facility] Social Connection and Isolation Panel [NHANES] Frequency of Communication with Friends and Family: More than three times a week Frequency of Social Gatherings with Friends and Family: Once a week Attends Restorationist Services: Never Active Member of Clubs or Organizations: No Attends Club or Organization Meetings: Never Marital Status: Never Intimate Partner Violence: Not At Risk (11/18/2024) Received from [facility] Humiliation, Afraid, Rape, and Kick questionnaire Fear of Current or Ex-Partner: No Emotionally Abused: No Physically Abused: No Sexually Abused: No Housing Stability: Low Risk (11/18/2024) Received from [facility] Housing Stability Vital Sign Unable to [...] Breath sounds: Normal breath (more content not included)...[facility] HospitalNURSNOTEon 75-79-8357ZQQFDIXQQN educated pt on d/c instructions. This included: [...] wheeled off of unit with all of belongings.[facility] HospitalOrders Onlyon 47-94-3890Vcynlr [id number] Sherly Humphreys 1970 F Date Provider Department Center 12/10/2024 [id number], HISTORICAL CARD [facility] Family History Problem Relation Age of Onset Cancer Mother Heart attack Father Family Status - Relation Status Age at Mother Father DeceasedNormalUniversity [facility]FairhillALL CBC WITH AUTO DIFFon 73-43-5763DMULBCMML ABSOLUTE AUTO0.1NOMS HealthcareBasophils/100 WBC (Bld)1 % 0.2 - 2.0 %[facility] HealthcareEosinophils/100 WBC (Bld)3.1 %0.9 - 7.0 %[facility]OMS HealthcareErythrocyte distribution width (RBC) [Ratio]13.1 %11.0 - 15.0 %[facility] HealthcareHematocrit (Bld) [Volume fraction]37 %36.0 - 48.0 %[facility] Hemoglobin (Bld) [Mass/Vol]11.9 g/dLLow12.0 - 16.0 g/dLNOHermann Area District HospitalIMMATURE GRANULOCYTES ABS AUTO0.01NOHermann Area District HospitalImmature granulocytes/100 WBC (Bld)0.2 % 0.0 - 0.5 %[facility] CenterInterpretation and review of laboratory results AbnormalNOHermann Area District HospitalLYMPHOCYTES ABSOLUTE AUTO1.4NOHermann Area District Hospital Lymphocytes/100 WBC (Bld)24.4 %20.5 - 60.0 %[facility] HospitalH (RBC) [Entitic mass]29.8 pg26.7 - 34.0 pgNOSamaritan HospitalHC (RBC) [Mass/Vol]32.2 g/dL29.9 - 35.2 g/dLWright Memorial HospitalV (RBC) [Entitic vol]92.7 fL81.0 - 99.0 fLCass Medical CenterMONOCYTES ABSOLUTE AUTO0.3NOOH HealthcareMonocytes/100 WBC (Bld)5.2 % 1.7 - 12.0 %[facility] CenterNEUTROPHILS ABSOLUTE AUTO3.8NOHermann Area District Hospital Neutrophils/100 WBC (Bld)66.1 %43.0 - 75.0 %[facility] CenterPlatelet mean volume (Bld) [Entitic vol]10.8 fL9.5 - 13.5 fLNOHermann Area District HospitalTB EO #0.2[facility] TB [id number] [facility] RBC3.99LowNOSaint Francis Medical Center WBC5.8NOHermann Area District Hospital CLINISYNCNOOH Egrfhgznqw00wj 32-84-762753Cfzgcvwra stress test result from 11/13/2024: Tk Godoy MD to Me (Selected Message) EE 11/18/24 4:19 AM Please let her know her stress test is abnormal and I would recommend cardiac cath: CORS via L radial approach. Thanks Spoke with Sherly and made her aware. Lab [facility]. She verbalized understanding.NormalUnKnox Community HospitalAlbumin [Mass/volume] in Serum or Plasma by Bromocresol green (BCG) dye binding methoOrdered By: Halle Mac on 77-77-7835Bkqhqex BCG dye [Mass/Vol]4.1 g/dL3.5-5.7FMercy Health Tiffin HospitalAppearance of UrineOrdered By: Halle Mac on 11-18-2024 Appearance (U)ClearNormalClearSt. Rita'S HospitalComment on above: Order Comment: Name Collection Type:: Clean-Voided MidstreamPerformed By: #### URMACRERAT, ADDONUAPLUS, PROCRERAT #### [facility] [address] [place] [address] USABacteria [Presence] in Urine by AutomatedOrdered By: Halle Mac on 90-52-6977Yhjbboig Auto Ql (U)None seen [HPF]None SeenSt. Rita'S HospitalBilirubin Test strip Ql (U)Ordered By: Halle Mac on 16-39-2069Zijdjorkx Ql (U)1+HighNegativeSt. Rita'S HospitalCalcium [Mass/volume] in Serum or PlasmaOrdered By: Halle Mac on 55-75-5869Mwwlgdt [Mass/Vol]9.6 mg/dLNormal8.6-10.3FMercy Health Tiffin HospitalComment on above:Performed By: #### URIC, FE and TIBC, [id number], GEENA, MG, RENAL, CBCNO, [id number], PTH #### [facility] [address] [place] [address] USACarbon dioxide, total [Moles/volume] in Serum or Plasma Ordered By: Halle Mac on 59-48-5559VK9 [Moles/Vol]28.3 mmol/DGkassl10.0-31.0 [facility]'S HospitalComment on above:Performed By: #### URIC, FE and TIBC, [id number], GEENA, MG, RENAL, CBCNO, [id number], PTH #### [facility] [address] [place] [address] USAChloride [Moles/volume] in Serum or PlasmaOrdered By: Halle Mac on 04-59-0717Wlwxurab [Moles/Vol]111 mmol/LPubn52-097LpbyyrxkeSt. Rita'S HospitalComment on above:Performed By: #### URIC, FE and TIBC, [id number], GEENA, MG, RENAL, CBCNO, [id number], PTH #### [facility] [address] [place] [address] USAColor of Urine by AutoOrdered By: Halle Mac on 70-08-6326Mkikb (U)YellowNormalYellowSt. Rita'S HospitalComment on above:Order Comment: Name Collection Type:: Clean-Voided MidstreamPerformed By: #### URMACRERAT, ADDONUAPLUS, PROCRERAT #### [facility] [address] [place] [address] USACreatinine [Mass/volume] in Serum or PlasmaOrdered By: Halle Mac on 72-00-1198Ictfledwef [Mass/Vol]1.38 mg/dLHigh0.60-1.20St. Rita'S HospitalComment on above:Performed By: #### URIC, FE and TIBC, [id number], GEENA, MG, RENAL, CBCNO, [id number], PTH #### [facility] [address] [place] [address] USACreatinine [Mass/volume] in UrineOrdered By: Halle Mac on 98-31-6689Lecqvvbwwi (U) [Mass/Vol]270.00 mg/dLSt. Rita'S HospitalComment on above:No reference range establishedDipstick and Microscopicon 37-51-9641Vqwsuqmu,UrineNone SeenNormalNone SeenThe Counts Include [address] [facility] Comment on above:Order Comment: Name Collection Type:: Clean-Voided Midstream Performed By: #### URMACRERAT, ADDONUAPLUS, PROCRERAT #### [facility] [address] [place] [phone] USABilirubin,Urine1+NormalNegativeThe Counts Include [facility] Physician GroupComment on above:Order Comment: Name Collection Type:: Clean-Voided MidstreamPerformed By: #### URMACRERAT, ADDONUAPLUS, PROCRERAT #### [facility] [address] [place] [phone] USAGlucose Ql (U)NormalNormalNormalThe Counts Include [address] [facility] Physician GroupComment on above:Order Comment: Name Collection Type:: Clean-Voided MidstreamPerformed By: #### URMACRERAT, ADDONUAPLUS, PROCRERAT #### [place] [address] USAHyaline Casts,Awiig6-73Hjpscx2-6Cae Counts Include [address] [facility] Physician GroupComment on above:Order Comment: Name Collection Type:: Clean-Voided MidstreamPerformed By: #### URMACRERAT, ADDONUAPLUS, PROCRERAT #### [place] [id number] USAMucus,UrineRareNormalThe Counts Include [address] [facility] Physician GroupComment on above:Order Comment: Name Collection Type:: Clean-Voided MidstreamResult Comment: PERFORMED BY: [place] [address] PATHOLOGIST ASSOCIATE PROFESSOR OF PSYCHOLOGY KRISHAN PAEZ M.D.Performed By: #### URMACRERAT, ADDONUAPLUS, PROCRERAT #### [place] [address] USANitrite,UrineNegativeNormalNegativeThe Counts Include [address] Physician GroupComment on above:Order Comment: Name Collection Type:: Clean-Voided MidstreamPerformed By: #### URMACRERAT, ADDONUAPLUS, PROCRERAT #### [place] [address] USAOccult Blood,UrineNegativeNormalNegativeThe Counts Include [address] Physician GroupComment on above:Order Comment: Name Collection Type:: Clean- Voided MidstreamResult Comment: PERFORMED BY: [place] [address] PATHOLOGIST ASSOCIATE PROFESSOR OF PSYCHOLOGY KRISHAN PAEZ M.D.Performed By: #### URMACRERAT, ADDONUAPLUS, PROCRERAT #### [place] [address] USAProtein,UrineTraceNormalNegativeThe Counts Include [address] [facility] GroupComment on above:Order Comment: Name Collection Type:: Clean-Voided MidstreamPerformed By: #### URMACRERAT, ADDONUAPLUS, PROCRERAT #### [facility] [address] [place] [address] USARBC,Lqpol8-4Eytejl9-3Eet Counts Include [address] [facility] Physician GroupComment on above:Order Comment: Name Collection Type:: Clean-Voided MidstreamPerformed By: #### URMACRERAT, ADDONUAPLUS, PROCRERAT #### [facility] [address] [place] [address] USASpecificy [place],Urine1.992Naib5.001-1.030The Counts Include [address] [facility] Physician GroupComment on above:Order Comment: Name Collection Type:: Clean- Voided MidstreamPerformed By: #### URMACRERAT, ADDONUAPLUS, PROCRERAT #### [place] [address] USASquamous Epithelial Cell,Bycsa1-9Bsaaef6-5Uhd Counts Include [address] [facility] Physician GroupComment on above:Order Comment: Name Collection Type:: Clean- Voided MidstreamPerformed By: #### URMACRERAT, ADDONUAPLUS, PROCRERAT #### [place] [address] USAUrobilinogen,Urine2 mg/dLNormalNormalThe Counts Include [address] [facility] Phys[facility] GroupComment on above:Order Comment: Name Collection Type:: Clean- Voided MidstreamPerformed By: #### URMACRERAT, ADDONUAPLUS, PROCRERAT #### [facility] [address] [place] [address] USAWBC,Mcaru0-8Lbrjwy9-4Nkd Counts Include [address] [facility] Physician GroupComment on above:Order Comment: Name Collection Type:: Clean-Voided MidstreamPerformed By: #### URMACRERAT, ADDONUAPLUS, PROCRERAT #### [facility] [address] [place] [address] USAEpithelial cells.squamous [#/area] in Urine sediment by Automated countOrdered By: Halle Mac on 49-79-4996Zjbueteoak cells.squamous Auto (Urine sed) [#/Area]1-2 [HPF]0-2FMercy Health Tiffin Hospital Erythrocyte distribution width [Ratio] by Automated countOrdered By: Halle Mac on 80-34-4396Ylmxtwjawdv distribution width (RBC) [Ratio]13.9 %Normal 11.9-15.3FMercy Health Tiffin HospitalComment on above:Performed By: #### URIC, FE and TIBC, [id number], GEENA, MG, RENAL, CBCNO, [id number], PTH #### [facility] [address] [place] [address] USAErythrocytes [#/area] in Urine sediment by Automated count Ordered By: Halle Mac on 35-84-8904WZJ Auto (Urine sed) [#/Area]1-2 [HPF]0-4 St. Rita'S HospitalErythrocytes [#/volume] in Blood by Automated countOrdered By: Halle Mac on 08-65-9414WAP (Bld) [#/Vol]3.67 10*6/uLNormal 3.60-5.00St. [facility]'S HospitalComment on above:Performed By: #### URIC, FE and TIBC, [id number], GEENA, MG, RENAL, CBCNO, [id number], PTH #### [facility] [address] [place] [address] USAFerritin [Mass/volume] in Serum or PlasmaOrdered By: Halle Mac on 02-02-6746Htebvfbi [Mass/Vol]235.3 ng/vHLjilsx91.0-306.8St. [facility]'S HospitalComment on above:Performed By: #### URIC, FE and TIBC, [id number], GEENA, MG, RENAL, CBCNO, [id number], PTH #### [facility] [address] [place] [address] USAFolate [Mass/volume] in Serum or PlasmaOrdered By: Halle Mac on 11-79-2918Xraypy [Mass/Vol]9.8 ng/mL>5.9St. Rita'S HospitalComment on above:Folate reference range: >5.9 ng/mlThe WHO technical consultation on folate and vitamin f23sdnmaqucmihx has determined that folate concentrations lessthan 4 ng/ml are considered deficient.Glucose [Mass/volume] in Serum or PlasmaOrdered By: Halle Mac on 96-59-4941Syfatan [Mass/Vol]88 mg/yMNuqbov23-732HwnvymheeSt. Rita'S HospitalComment on above:ADA recommended reference rangeRandom Glucose Reference [...] rangePerformed By: #### URIC, FE and TIBC, [id number], GEENA, MG, RENAL, CBCNO, [id number], PTH #### [facility] [address] [place] [phone] USAGlucose [Mass/volume] in Urine by Test stripOrdered By: Halle Mac on 23-74-9585Becorzj Test strip (U) [Mass/Vol]Normal mg/dLNormal St. Rita'S HospitalHematocrit [Volume Fraction] of Blood by Automated countOrdered By: Halle Mac on 83-33-9021Uynidimizi (Bld) [Volume fraction]33.1 %Low34.0-46.4FMercy Health Tiffin HospitalComment on above: Performed By: #### URIC, FE and TIBC, [id number], GEENA, MG, RENAL, CBCNO, [id number], PTH #### [facility] [address] [place] [address] USAHemoglobin Test strip Ql (U)Ordered By: Halle Mac on 80-83-8328Xraubeggsy Ql (U)NegativeNegativeSt. Rita'S Hospital Hemoglobin [Mass/volume] in BloodOrdered By: Halle Mac on 11-18-2024 Hemoglobin (Bld) [Mass/Vol]10.8 g/dLLow11.8-15.4FMercy Health Tiffin HospitalComment on above:Performed By: #### URIC, FE and TIBC, [id number], GEENA, MG, RENAL, CBCNO, [id number], PTH #### [place] [address] USAHemogram CBC Without Diffon 99-06-8994Xkfq Corpuscular HGB Conc32.7 g/mNQnkdcd39.0-35.0The Counts Include [address] [facility] Physician GroupComment on above: Performed By: #### URIC, FE and TIBC, [id number], GEENA, MG, RENAL, CBCNO, [id number], PTH #### [place] [address] USAWhite Blood Count9.7 [CFU]/mLNormal3.8-11.6The Counts Include [address] [facility] Physician GroupComment on above:Performed By: #### URIC, FE and TIBC, [id number], GEENA, MG, RENAL, CBCNO, [id number], PTH #### [place] [address] USAHyaline casts [#/area] in Urine sediment by Automated countOrdered By: Halle Mac on 52-21-4644Egxtoeb casts Auto (Urine sed) [#/Area]9-19 [LPF]High0-8St. Rita'S HospitalIron [Mass/volume] in Serum or PlasmaOrdered By: Halle Mac on [id number] [Mass/Vol]64 ug/dL Cwvful30-368XpgeptmgwSt. Rita'S HospitalComment on above:Performed By: #### URIC, FE and TIBC, [id number], GEENA, MG, RENAL, CBCNO, [id number], PTH #### [place] [address] USAIron and TIBC Profileon 11-18-2024% Iron Wtfqtfjeky60.4 % Vtj18-78Beq Counts Include [facility] Physician GroupComment on above:Performed By: #### URIC, FE and TIBC, [id number], GEENA, MG, RENAL, CBCNO, [id number], PTH #### [place] [address] USATotal Iron Binding Wddriywa295 ug/iWXaixel990-309Ynv Counts Include [facility] At [facility] Physician GroupComment on above:Performed By: #### URIC, FE and TIBC, SNAP20RAN, GEENA, MG, RENAL, CBCNO, [id number], PTH #### [facility] [address] [place] [address] USAKetones [Presence] in Urine by Test stripOrdered By: Halle Mac on 00-87-5927Ozsepew Ql (U)NegativeNormalNegativeSt. Rita'S HospitalComment on above:Order Comment: Name Collection Type:: Clean- Voided MidstreamPerformed By: #### URMACRERAT, ADDONUAPLUS, PROCRERAT #### [place] [id number] USALeukocyte esterase [Presence] in Urine by Test strip Ordered By: Halle Mac on 12-63-4642Dquvfpznz esterase Test strip Ql (U)3+ NormalNegTrinity Health System Twin City Medical CenterComment on above:Order Comment: Name Collection Type:: Clean-Voided MidstreamPerformed By: #### URMACRERAT, ADDONUAPLUS, PROCRERAT #### [place] [address] USALeukocytes [#/area] in Urine sediment by Automated count Ordered By: Halle Mac on 45-04-1323IBO Auto (Urine sed) [#/Area]1-2 [HPF]0-4 St. Rita'S HospitalLeukocytes [#/volume] corrected for nucleated erythrocytes in Blood by Automated counOrdered By: Halle Mac on 14-58-2701LUA corrected for nucl RBC Auto (Bld) [#/Vol]9.7 10*3/uL3.8-11.6FKettering Health HamiltonH [Entitic mass] by Automated countOrdered By: Halle Mac on 49-12-3547GGI (RBC) [Entitic mass]29.5 hhNomnjm47.7-34.3FMercy Health Tiffin HospitalComment on above:Performed By: #### URIC, FE and TIBC, [id number], GEENA, MG, RENAL, CBCNO, [id number], PTH #### [place] [id number] [facility] TULSAHC Auto (RBC) [Mass/Vol]Ordered By: Halle Mac on 22-93-4260BMBR (RBC) [Mass/Vol]32.7 g/dL32.0-35.0St. Rita'S HospitalMCV [Entitic volume] by Automated countOrdered By: Halle Mac on 84-15-7736NYW (RBC) [Entitic vol]90.3 jGUosics58-800FmimmuqpjSt. Rita'S HospitalComment on above:Performed By: #### URIC, FE and TIBC, [id number], GEENA, MG, RENAL, CBCNO, [id number], PTH #### [facility] [address] [place] [address] USAMagnesium [Mass/volume] in Serum or PlasmaOrdered By: Halle Mac on 06-62-6067Yfscxutne [Mass/Vol]2.1 mg/dLNormal1.9-2.7FMercy Health Tiffin HospitalComment on above:Performed By: #### URIC, FE and TIBC, GFIS86HKH, GEENA, MG, RENAL, CBCNO, ARXT27SS, PTH #### [facility] [address] [place] [address] USAMicroAlb Creat Ratio,Uon 59-92-9628Ooblmgkhff, Urine (Random)270.00 mg/dLNoalThe Counts Include 234 [facility] At The [facility] Physician GroupComment on above:Result Comment: No reference range establishedPerformed By: #### URMACRERAT ADDONUAPLUS, PROCRERAT #### [facility] [address] [place] [address] USAMicroalbumin/Creatinine Ratio8.1 mg/gNormal0.0-30.0The Counts Include 234 [facility] At The [facility] Physician GroupComment on above:Result Comment: 30-300 mg/g indicates an increased risk for diabetic nephropathy. Greater than 300 mg/g is consistent with clinical nephropathy. (Am. J. Kidney Disease 1995, 25:107)Performed By: #### URMACRERAT, ADDONUAPLUS, PROCRERAT #### [facility] [address] [place] [address] USAMicroalbumin [Mass/volume] in UrineOrdered By: Halle Mac on 17-45-3909Pbjkhak DL <= 20 mg/L (U) [Mass/Vol]2.2 mg/dLHigh0.0-1.8 [facility] Rita'S HospitalComment on above:Performed By: #### URMACRERAT, ADDONUAPLUS, PROCRERAT #### [facility] [address] [place] [address] USAMucus [Presence] in Urine by AutomatedOrdered By: Halle Mac on 35-88-2584Vyrhy Auto Ql (U)Rare [LPF]St. Rita'S HospitalNitrite Test strip Ql (U)Ordered By: Halle Mac on 96-49-8168Dllidmo Ql (U)NegativeNegativeSt. Rita'S HospitalNo Panel InformationOrdered By: Halle Mac on 83-00-8789Jklroiyad GFR (CKD-EPI)45.770 mL/MinSt. Rita'S HospitalPharmacy Creatinine Clearance (ChemN/AFMercy Health Tiffin HospitalParathyrin.intact [Mass/volume] in Serum or PlasmaOrdered By: Halle Mac on 48-89-2601Kbtfhacfwt.intact [Mass/Vol]25.6 pg/rJ38-80QiwnviffmSt. Rita'S HospitalParathyroid Hormone Intacton 47-06-0870Mgcvjtlpofa Hormone Tlxjjz70.6 pg/gCFrhlnh10-01Fgu Counts Include 234 Beds At The [facility] Physician GroupComment on above:Result Comment: PERFORMED BY: [facility] [address] [place] [address] PATHOLOGIST ASSOCIATE PROFESSOR OF PSYCHOLOGY KRISHAN PAEZ M.D.Performed By: #### URIC, FE and TIBC, HTAO70TBA, GEENA, MG, RENAL, CBCNO, PNBE85XB, PTH #### [facility] [address] [place] [address] USAPhosphate [Mass/volume] in Serum or PlasmaOrdered By: Halle Mac on 42-01-0731Jcpwejimg [Mass/Vol]3.5 mg/dLNormal2.5-4.5FMercy Health Tiffin HospitalComment on above:Performed By: #### URIC, FE and TIBC, XGNR44PVG, GEENA, MG, RENAL, CBCNO, OATE26DZ, PTH #### [place] [address] USAPlatelet mean volume [Entitic volume] in Blood by Automated countOrdered By: Halle Mac on 03-99-1807Srmyxexz mean volume (Bld) [Entitic vol]9.4 fLNormal6.3-10.7FMercy Health Tiffin HospitalComment on above:Result Comment: PERFORMED BY: [place] [address] PATHOLOGIST ASSOCIATE PROFESSOR OF PSYCHOLOGY KRISHAN PAEZ M.D.Performed By: #### URIC, FE and TIBC, TWLG29FAD, GEENA, MG, RENAL, CBCNO, KNQO69EA, PTH #### [place] [address] USAPlatelets [#/volume] in Blood by Automated countOrdered By: Halle Mac on 30-56-4384Lydvatjmq (Bld) [#/Vol]258 10*3/gZQjbjyd384-276 St[facility] Rita'S HospitalComment on above:Performed By: #### URIC, FE and TIBC, JPQH89WWC, GEENA, MG, RENAL, CBCNO, ZFAP98FO, PTH #### [place] [address] USAPotassium [Moles/volume] in Serum or PlasmaOrdered By: Halle Mac on 85-41-5314Ilibfzdkt [Moles/Vol]4.6 mmol/LNormal3.5-5.1FMercy Health Tiffin HospitalComment on above:Performed By: #### URIC, FE and TIBC, XMEQ30VLI, GEENA, MG, RENAL, CBCNO, YSPA13TU, PTH #### [place] [address] USAProtein Creat Ratio Ur Randomon 32-15-3843Blmbu Protein/Creatinine Ratio85 mg/g{Cre}Normal0-200The Counts Include [address] [facility] At [facility] Comment on above:Result Comment: PERFORMED BY: [address] [place] [address] PATHOLOGIST ASSOCIATE PROFESSOR OF PSYCHOLOGY KRISHAN PAEZ M.D.Performed By: #### RAMOS ALEXIS PROCREWESTON #### [place] [address] USAProtein Test strip (U) [Mass/Vol]Ordered By: Halle Mac on 17-81-1758Xyuoypi (U) [Mass/Vol]Trace mg/dLHighNegativeSt. Rita'S HospitalProtein [Mass/volume] in UrineOrdered By: Halle Mac on 53-30-3834Upaznus (U) [Mass/Vol]23 mg/dLHigh0-9St[facility] Comment on above:Performed By: #### RAMOS ALEXIS PROCRERAT #### [place] [address] USARenal Function Panelon 46-37-6914Bkovurq [Mass/Vol]4.1 g/dLNormal3.5-5.7The Counts Include [address] [facility] At The [facility] Physician GroupComment on above:Performed By: #### URIC, FE and TIBC, DEEK41ZNC, GEENA, MG, RENAL, CBCNO, AUQL89NA, PTH #### [place] [address] USAGFR/1.73 sq M.predicted MDRD (S/P/Bld) [Vol rate/Area] 45.770 mL/min/{1.73_m2}NormalThe Counts Include 234 B[facility] At The [facility] Physician GroupComment on above: Performed By: #### URIC, FE and TIBC, SUZX79UMX, GEENA, MG, RENAL, CBCNO, XHAY26SA, PTH #### [place] [address] USASerum or plasma anion gap determinationOrdered By: Halle Mac on 78-84-1818Aelff gap [Moles/Vol]9.3 mmol/LNormal6.0-15.0St. Rita'S HospitalComment on above:Performed By: #### URIC, FE and TIBC, LLKS13NIE, GEENA, MG, RENAL, CBCNO, RSAV78IL, PTH #### [facility] [address] [place] [address] USASerum or plasma iron binding capacity measurement (mass/volume)Ordered By: Halle Mac on 81-84-0016Kpwo binding capacity [Mass/Vol]416 ug/cY361-700PkdwbeqyrOur Lady of Mercy Hospital - Andersonerum or plasma iron saturation measurement (mass fraction)Ordered By: Halle Mac on 87-91-2093Vyhk saturation [Mass fraction]15.4 %Dpu04-18KthbzuxbiOur Lady of Mercy Hospital - Andersonodium [Moles/volume] in Serum or PlasmaOrdered By: Halle Mac on 98-08-6370Kmwfpa [Moles/Vol]144 mmol/ZRrlale059-305JnadnnuucSt. Rita'S HospitalComment on above:Performed By: #### URIC, FE and TIBC, RZAV22MCJ, GEENA, MG, RENAL, CBCNO, EPFW78RT, PTH #### [facility] [address] [place] [address] USASpecific gravity Test strip (U) [Rel density]Ordered By: Halle Mac on 08-86-5391Oeojdkiy gravity (U) [Rel density]1.242Kxdp0.001-1.030 [address] Rita'S HospitalTelephoneon [id number] Sherly Humphreys 1970 F Date Provider Department Center 11/18/2024 NEO TABARES MATTHEW [place] Family History Problem Relation Age of Onset Cancer Mother Heart attack Father Family Status - Relation Status Age at Mother Father DeceasedNormalUniversity Select Medical Special[facility] Hospital - Cleveland-FairhillTransferrin [Mass/volume] in Serum or PlasmaOrdered By: Halle Mac on 11-18-2024 Transferrin [Mass/Vol]297 mg/nUOthuep629-001EkbkhazgmSt. Rita'S Hospital Comment on above:Performed By: #### URIC, FE and TIBC, MUGM12TCA, GEENA, MG, RENAL, CBCNO, ZLYK12HL, PTH #### [facility] [address] [place] [address] USAUrate [Mass/volume] in Serum or PlasmaOrdered By: Halle Mac on 76-78-3908Ehubs [Mass/Vol]5.1 mg/dLNormal2.3-6.6FMercy Health Tiffin HospitalComment on above:Performed By: #### URIC, FE and TIBC, KUTJ61ENH, GEENA, MG, RENAL, CBCNO, APAV92GO, PTH #### [facility] [address] [place] [address] USAUrea nitrogen [Mass/volume] in Serum or PlasmaOrdered By: Halle Mac on 14-53-9137Rusn nitrogen [Mass/Vol]25 mg/dLNormal7-25St. Rita'S HospitalComment on above:Performed By: #### URIC, FE and TIBC, BASF84YRR, GEENA, MG, RENAL, CBCNO, OJPD27CW, PTH #### [facility] [address] [place] [address] USAUrine microalbumin/creatinine mass ratioOrdered By: Halle Mac on 51-22-3951Mxuwgio/Creatinine DL <= 20 mg/L (U) [Mass ratio]8.1 mg/g 0.0-30.0St. Rita'S HospitalComment on above:30-300 mg/g indicates an increased risk for diabetic nephropathy. Greater than 300 mg/g is consistent with clinical nephropathy. (Am. J. Kidney Disease 1995, 25:107)Urine protein/creatinine ratioOrdered By: Halle Mac on 11-38-1770Roxttnx/Creatinine (U) [Ratio]85 mg/g{Cre}0-200St. Rita'S HospitalUrobilinogen Test strip (U) [Mass/Vol]Ordered By: Halle aMc on 09-67-6062Enkpsrtubpwz (U) [Mass/Vol]2 mg/dLHighNormGuernsey Memorial HospitalVit. B12/Folate Profileon 63-25-9839Udvgql7.8 ng/mLNormal>5.9The Counts Include [address] [facility] At [facility] Comment on above:Result Comment: Folate reference range: >5.9 ng/ml The WHO technical consultation on folate and vitamin b12 deficiencies has determined that folate concentrations less than 4 ng/ml are considered deficient.Performed By: #### MYLES ALEXISUAPLUS, PROCRERAT #### [facility] [address] [place] [address] USAVitamin B12 ser/plasOrdered By: Halle Mac on 11-18-2024 Cobalamin (Vitamin B12) [Mass/Vol]934 pg/vJCaki489-074MksohkdlrSt. Rita'S HospitalComment on above:Performed By: #### RAMOS ALEXIS, PROCRERAT #### [facility] [address] [place] [address] USAVitamin D 25 Hydroxy Totalon 80-88-4748Vocmkum D 25 Hydroxy Total23.9 ng/sWHxu42-350Njn Counts Include [address] [facility] At The [facility] Physician GroupComment on above: Result Comment: VITAMIN D STATUS 25(OH)VITAMIN D RANGE (ng/mL) Deficient <20 Insufficient 20 to <30 Sufficient 30 to 100 Reference: Nicole Almonte, Ed LI, et al. Evaluation,treatment, and prevention of vitamin D deficiency; an Endocrine Society clinical practice guideline. JCEM. 2010; 96(7):1911-30. PERFORMED BY: [place] [address] PATHOLOGIST ASSOCIATE PROFESSOR OF PSYCHOLOGY KRISHAN PAEZ M.D.Performed By: #### RAMOS ALEXIS, PROCRERAT #### [facility] [address] [place] [address] USAVitamin D+Metabolites [Mass/volume] in Serum or Plasma Ordered By: Halle Mac on 23-27-1373Sogyalv D+Metabolites [Mass/Vol]23.9 ng/mL Ceh00-664NzolcqjctSt. Rita'S HospitalComment on above:VITAMIN D STATUS 25(OH)VITAMIN D RANGE (ng/mL) Deficient <20 Insufficient 20 to <09Llpaapirxx89 to 100Reference: Nicole Almonte, Ed LI, et al. Evaluation,treatment, and prevention of vitamin D deficiency; an Endocrine Society clinical practice guideline. JCEM. 2010; 96(7):1911-.pH of Urine by Test stripOrdered By: Halle Mac on 59-51-9882gC (U)5.0 [pH]Normal5.0-9.0 [facility] Rita'S HospitalComment on above:Order Comment: Name Collection Type:: Clean-Voided MidstreamPerformed By: #### RAMOS ALEXIS, PROCRERAT #### [facility] [address] [place] [address] USANM ROZ PERF SPECT REST STRon 27-70-8568[place]je[place], [place] [address] Nuclear Medicine Report Signed Patient: SHERLY HUMPHREYS MR#: [id number] : 1970 Acct:[id number] Age/Sex: 53 / F ADM Date: 11/13/24 Loc: [place] Attending Dr: Tk Godoy M.D. Ordering Physician: Tk Godoy M.D. Date of Service: 11/13/24 Procedure(s): NM roz perf SPECT rest str Accession Number(s): [id number] cc: Janene Lew CORRECTIONAL SECURITY OFFICER; Tk Godoy M.D. Patient Name: SHERLY HUMPHREYS MR#: [id number] : 1970 Exam Date: 11/13/2024 Ordering Doctor: [...] Signed By: 11/17/24 1002 DD/ 1001 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 Helper:VLADHRadiologjasmyn, Radiologist, - 11/17/2024 [place] [address] Nuclear Medicine Report Signed Patient: SHERLY HUMPHREYS MR#: [id number] : 1970 Acct:[id number] Age/Sex: 53 / F ADM Date: 11/13/24 Loc: [place] Attending Dr: Tk Godoy M.D. Ordering Physician: Tk Godoy M.D. Date of Service: 11/13/24 Procedure(s): NM roz perf SPECT rest str Accession Number(s): [id number] cc: Janene Lew CORRECTIONAL SECURITY OFFICER; Tk Godoy M.D. Patient Name: SHERLY HUMPHREYS MR#: [id number] : 1970 Exam Date: 11/13/2024 Ordering Doctor: [...] Signed By: 11/17/24 1002 DD/ 1001 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 Helper: [facility] CenterRadiology Study observation (narrative)[facility] ROZ PERF SPECT REST STROrdered By: Radiologist Radiology on 28-92-9571HEQDCass Medical Center Work Phone: Orders Onlyon 47-37-3340Dynhhk [id number] Sherly Humphreys 1970 Date Provider Department Center 11/17/2024 [id number], HISTORICAL CARD Alfredo Hamilton Family History Problem Relation Age of Onset Cancer Mother Heart attack Father Family Status - Relation Status Age at Mother Father DeceasedNormalUniversity of Christus [facility]ohn Hospital – KlebergHbA1c (Bld) [Mass fraction]on 16-89-5049Mmdapkxfnoxclv and review of laboratory resultsNormalUniversity Hospital HealthcareLaboratory - Hematology and Cell countson 11-03-2024 HbA1c (Bld) [Mass fraction]5.2 %[facility] Medical CenterOffice Visiton 26-13-5592Ymvyci- up [id number] Sherly Humphreys 1970 Date Provider Department Center 10/16/2024 271-TK GODOY CARD Alfredo Hamilton Family History Problem Relation Age of Onset Cancer Mother Heart attack Father Family Status - Relation Status Age at Mother Father Level of Service:38735 SD OFFICE/OUTPATIENT ESTABLISHED MOD [facility] HospitalALL CBC WITH AUTO DIFFon 48-08-6221AUADTFNCM ABSOLUTE AUTO0.1NOMS HealthcareBasophils/100 WBC (Bld)1.1 %0.2 - 2.0 %NOMS HealthcareEosinophils/100 WBC (Bld)3.1 %0.9 - 7.0 %NOMS HealthcareErythrocyte distribution width (RBC) [Ratio]12.9 %11.0 - 15.0 %NOMS HealthcareHematocrit (Bld) [Volume fraction]33.2 %Low36.0 - 48.0 %NOMS HealthcareHemoglobin (Bld) [Mass/Vol]11.1 g/dLLow12.0 - 16.0 g/dLNOOH HealthcareIMMATURE GRANULOCYTES ABS AUTO0.01NOMS HealthcareImmature granulocytes/100 WBC (Bld)0.2 %0.0 - 0.5 %NOMS HealthcareInterpretation and review of laboratory resultsAbnormTorrance State Hospital LYMPHOCYTES ABSOLUTE AUTO1.7NOMS HealthcareLymphocytes/100 WBC (Bld)38.2 %20.5 - 60.0 %NOMGolden Valley Memorial HospitalMCH (RBC) [Entitic mass]30.1 pg26.7 - 34.0 pgNOHermann Area District HospitalMCHC (RBC) [Mass/Vol]33.4 g/dL29.9 - 35.2 g/dLNOHermann Area District HospitalMCV (RBC) [Entitic vol]90 fL81.0 - 99.0 fLNOOH HealthcareMONOCYTES ABSOLUTE AUTO0.3NOMS HealthcareMonocytes/100 WBC (Bld)7 %1.7 - 12.0 %NOMS HealthcareNEUTROPHILS ABSOLUTE AUTO2.2NOMS HealthcareNeutrophils/100 WBC (Bld)50.4 %43.0 - 75.0 %NOMS HealthcarePlatelet mean volume (Bld) [Entitic vol]11.2 fL9.5 - 13.5 fLNOMS HealthcareTBH EO #0.1NOMS HealthcareTBH [id number] HealthcareTBH RBC3.69LowNOMS HealthcareTBH WBC4.5NOMS HealthcareCLINISYNCNOMS HealthcareECG 12-LEADon 29-71-7407NrqFreer, [place] [address] Electrocardiograph Report Signed Patient: SHERLY HUMPHREYS MR#: [id number] : 1970 Acct:[id number] Age/Sex: 53 / F ADM Date: 10/07/24 Loc: [facility] Attending Dr: Marcella Conway M.D. Ordering Physician: Marcella Conway M.D. Date of Service: 10/07/24 Procedure(s): ECG 12 lead Accession Number(s): [id number] cc: [facility] Test Date: 2024-10-07 Pat Name: SHERLY HUMPHREYS Department: Room: - Gender: Female Helicopter Officer: : 1970 Requested By: 1822 Order Number: [id number] Reading MD: LITO EDEN M.D. Measurements Intervals [place] Rate: 51 P: 30 SD: 182 QRS: -16 QRSD: 105 T: 0 [...] Dictated By: LITO EDEN Signed By: 10/07/24 6024 DD/ 1001 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 Helper:TBHRadiology, Radiologist, - 10/07/2024 The [place] [id number] Electrocardiograph Report Signed Patient: SHERLY HUMPHREYS MR#: [id number] : 1970 Acct:[id number] Age/Sex: 53 / F ADM Date: 10/07/24 Loc: PST Attending Dr: Marcella Conway M.D. Ordering Physician: Marcella Conway M.D. Date of Service: 10/07/24 Procedure(s): ECG 12 lead Accession Number(s): [id number] cc: [facility] Test Date: 2024-10-07 Pat Name: SHERLY HUMPHREYS Department: Room: - Gender: Female Helicopter Officer: : 1970 Requested By: 1822 Order Number: [id number] Reading MD: LITO EDEN M.D. Measurements Intervals [place] Rate: 51 P: 30 SD: 182 QRS: -16 QRSD: 105 T: 0 [...] Dictated By: LITO EDEN Signed By: 10/07/24 3431 DD/ 1001 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 Helper: NOMMynor HealthcareRadiology Study observation (narrative)NOMS HealthcareECG 12-LEAD Ordered By: Radiologist Radiology on 03-57-3963NHTF Healthcare Work Phone: xr CHEST 2Von 44-52-5023RmoFreer, [place] [address] XRay Report Signed Patient: SHERLY HUMPRHEYS MR#: [id number] : 1970 Acct:[id number] Age/Sex: 53 / F ADM Date: 10/07/24 Loc: PST Attending Dr: Marcella Conway M.D. Ordering Physician: Marcella Conway M.D. Date of Service: 10/07/24 Procedure(s): XR chest 2V Accession Number(s): [id number] cc: aJnene Lew NP; Marcella Conway M.D. The [address] [id number] Patient Name: SHERLY HUMPHREYS MRN: [id number] date: 1970 Sex: F [facility] Location[facility] Accession/Order Number: [id number] Exam Date: 10/07/2024 12:58 Report Date: 10/07/2024 12:59 At the request of: MARCELLA CONWAY MD Procedure: XR chest 2V Chest 2 views CLINICAL HISTORY: Pre Op COMPARISON: Chest 07/05/2024 FINDINGS: Heart normal in size. Lungs are clear. No free air. XR/XR chest 2V IMPRESSION: NO ACUTE CARDIOPULMONARY ABNORMALITY. Impression dictated by: Azalea Flores Jr.OGerardo 10/07/2024 12:59 PM Dictation Location: [place] [address] Electronically authenticated by: [id number] Y Date: 10/07/2024 12:59 Dictated By: Kip Mon M.D. Signed By: 10/07/24 1302 DD/ 1259 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 Helper:VLADHRadiologjasmyn, Radiologist, - 10/07/2024 [place] [address] XRay Report Signed Patient: SHERLY HUMPHREYS MR#: [id number] : 1970 Acct:[id number] Age/Sex: 53 / F ADM Date: 10/07/24 Loc: PST Attending Dr: Marcella Conway M.D. Ordering Physician: Marcella Conway M.D. Date of Service: 10/07/24 Procedure(s): XR chest 2V Accession Number(s): [id number] cc: Janene Lew NP; Marcella Conway M.D. The [place] [address] Patient Name: SHERLY HUMPHREYS MRN: [facility]:[id number] date: 1970 Sex: F Assigned Patient Location: [facility] Current Patient Location: [facility] Accession/Order Number: [id number] Exam Date: 10/07/2024 12:58 Report Date: 10/07/2024 12:59 At the request of: MARCELLA CONWAY MD Procedure: XR chest 2V Chest 2 views CLINICAL HISTORY: Pre Op COMPARISON: Chest 07/05/2024 FINDINGS: Heart normal in size. Lungs are clear. No free air. XR/XR chest 2V IMPRESSION: NO ACUTE CARDIOPULMONARY ABNORMALITY. Impression dictated by: Kip Mon Jr., D.O. 10/07/2024 12:59 PM Dictation Location: [place] [address] Electronically authenticated by: [id number] Y Date: 10/07/2024 12:59 Dictated By: Kip Mon M.D. Signed By: 10/07/24 1302 DD/ 1259 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 Helper: [facility] MEDICAL CENTERMynor Wright-Patterson Medical CenterRadiology Study observation (narrative)[facility] Medical CenterXR CHEST 2V Ordered By: Radiologist Radiology on 01-54-2844ODQOCass Medical Center Work Phone: aLL CBC WITH AUTO DIFFon 24-22-5431ORSALHCTU ABSOLUTE AUTO0.1NOMS HealthcareBasophils/100 WBC (Bld)0.8 %0.2 - 2.0 %[facility] Eosinophils/100 WBC (Bld)3.2 %0.9 - 7.0 %[facility] Medical CenterErythrocyte distribution width (RBC) [Ratio]13 %11.0 - 15.0 %[facility] HealthcareHematocrit (Bld) [Volume fraction]33.6 %Low36.0 - 48.0 %[facility] Medical CenterHemoglobin (Bld) [Mass/Vol]10.9 g/dLLow12.0 - 16.0 g/dLCass Medical CenterIMMATURE GRANULOCYTES ABS AUTO0.01NOOH HealthcareImmature granulocytes/100 WBC (Bld)0.2 %0.0 - 0.5 %[facility] Interpretation and review of laboratory resultsAbnormalNOMS Healthcare LYMPHOCYTES ABSOLUTE AUTO2.8NOMS HealthcareLymphocytes/100 WBC (Bld)46.4 %20.5 - 60.0 %[facility] Memorial HospitalH (RBC) [Entitic mass]30.2 pg26.7 - 34.0 pgNOSamaritan HospitalHC (RBC) [Mass/Vol]32.4 g/dL29.9 - 35.2 g/dLNOSamaritan HospitalV (RBC) [Entitic vol]93.1 fL81.0 - 99.0 fLNOOH HealthcareMONOCYTES ABSOLUTE AUTO0.4NOOH HealthcareMonocytes/100 WBC (Bld)6.6 %1.7 - 12.0 %[facility] HealthcareNEUTROPHILS ABSOLUTE AUTO2.5NOMS HealthcareNeutrophils/100 WBC (Bld)42.8 %Low43.0 - 75.0 % [facility] HealthcarePlatelet mean volume (Bld) [Entitic vol]10.8 fL9.5 - 13.5 fLNOHermann Area District HospitalTBH EO #0.2NOMS HealthcareTBH [id number] [facility]terson Medical CenterTB RBC3.61LowNOHermann Area District HospitalTB WBC5.9NOOH HealthcareCLINISYNCNOMS HealthcareXR Hip - right 3 Viewson 42-27-7043[address] [address] XRay Report Signed Patient: SHERLY HUMPHREYS MR#: [id number] : 1970 Acct:[id number] Age/Sex: 53 / F ADM Date: 08/28/24 Loc: RAD Attending Dr: Elizabeth Meneses CORRECTIONAL SECURITY OFFICER Ordering Physician: Elizabeth Meneses NP Date of Service: 08/28/24 Procedure(s): XR hip RT min 2V Accession Number(s): [id number] cc: Janene Lew NP; Elizabeth Meneses NP [address] [address] Patient Name: SHERLY HUMPHREYS MRN: TBH:[id number] date: 1970 Sex: F Assigned Patient Location: RAD Current Patient Location: RAD Accession/Order Number: [id number] Exam Date: 08/28/2024 10:29 Report Date: 08/28/2024 [...] Lubin M.D. 08/28/2024 10:30 AM Dictation Location: [place] [address] Electronically authenticated by: [id number] Y Date: 08/28/2024 10:30 Dictated By: Franco Lubin M.D. Signed By: 08/28/24 1032 DD/ 1030 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 Helper:TBHRadiology, Radiologist, - 08/28/[address] [address] XRay Report Signed Patient: SHERLY HUMPHREYS MR#: [id number] : 1970 Acct:[id number] Age/Sex: 53 / F ADM Date: 08/28/24 Loc: RAD Attending Dr: Elizabeth Meneses NP Ordering Physician: Elizabeth Meneses NP Date of Service: 08/28/24 Procedure(s): XR hip RT min 2V Accession Number(s): [id number] cc: Janene Lew NP; Elizabeth Meneses NP The [address] [address] Patient Name: SHERLY HUMPHREYS MRN: [id number] date: 1970 Sex: F Assigned Patient Location: RAD Current Patient Location: RAD Accession/Order Number: [id number] Exam Date: 08/28/2024 10:29 Report Date: 08/28/2024 [...] Lubin M.D. 08/28/2024 10:30 AM Dictation Location: [place] [address] Electronically authenticated by: [id number] Y Date: 08/28/2024 10:30 Dictated By: Franco Lubin M.D. Signed By: 08/28/24 1032 DD/ 1030 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 Helper: VARUN HealthcareRadiology Study observation (narrative)[facility] HealthcareXR Hip - right 3 ViewsOrdered By: Radiologist Radiology on [id number] [facility] Work Phone: HbA1c (Bld) [Mass fraction]on [id number] and review of laboratory resultsNormalSelect Specialty Hospital - Winston-SalemLaboratory - Hematology and Cell countson [id number] (Bld) [Mass fraction]5.5 %NOMS HealthcareXR LUMBAR SPINE MIN 4Von 33-72-40[place], [place] [address] XRay Report Signed Patient: SHERLY HUMPHREYS MR#: [id number] : 1970 Acct:[id number] Age/Sex: 53 / F ADM Date: 04/18/24 Loc: EC Attending Dr: Leatha Loya M.D. Ordering Physician: Leatha Loya M.D. Date of Service: 04/18/24 Procedure(s): XR lumbar spine min 4V Accession Number(s): [id number] cc: Janene Lew CORRECTIONAL SECURITY OFFICER; Leahta Loya M.D. [facility] [place] [id number] Patient Name: SHERLY HUMPHREYS MRN: [id number] date: 1970 Sex: F Assigned Patient Location: Current Patient Location: Accession/Order Number: [id number] Exam Date: 04/18/2024 08:38 Report Date: 04/21/2024 [...] Lobato M.D. Signed By: 04/21/2432 DD/ 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 Helper:TBHRadiology, Radiologist, MD - 04/21/2024 [place] [address] XRay Report Signed Patient: SHERLY HUMPHREYS MR#: [id number] : 1970 Acct:[id number] Age/Sex: 53 / F ADM Date: 04/18/24 Loc: EC Attending Dr: Leatha Loya M.D. Ordering Physician: Leatha Loya M.D. Date of Service: 04/18/24 Procedure(s): XR lumbar spine min 4V Accession Number(s): [id number] cc: Janene Lew CORRECTIONAL SECURITY OFFICER; Leatha Loya M.D. [place] [address] Patient Name: SHERLY HUMPHREYS MRN: [id number] date: 1970 Sex: F Assigned Patient Location: Current Patient Location: Accession/Order Number: [id number] Exam Date: 04/18/2024 08:38 Report Date: 04/21/2024 [...] M.D. Signed By: 04/21/24631 DD/ 8 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 Helper: VARUN HealthcareRadiology Study observation (narrative)[facility] HealthcareXR LUMBAR SPINE MIN 4VOrdered By: Radiologist Radiology on 48-53-7597[facility] Work Phone: Ferritinon [phone] [Mass/Vol]135.5 ng/mL Rhmmzy19.0-306.8The Counts Include 234 Beds At The [facility] Physician GroupComment on above:Performed By: #### JOSHUAMACREWESTON, ADDONUAGERMÁN, PROCRERAT #### [place] [address] USAHemogram CBC Without Diffon 53-86-6534Fasnmupxonk distribution width (RBC) [Ratio]14.6 %Dgbfec02.9-15.3The Counts Include 234 Beds At The [facility] Physician GroupComment on above:Performed By: #### URMACRERAT, ADDONUAPLUS, PROCRERAT #### [place] [address] USAHematocrit (Bld) [Volume fraction]34.9 %Ammysy97.0-46.4The Counts Include 234 Beds At The [facility] Physician GroupComment on above:Performed By: #### URMACRERAT, ADDONUAPLUS, PROCRERAT #### [place] [address] USAHemoglobin (Bld) [Mass/Vol]11.4 g/dLLow11.8-15.4The Counts Include 234 Beds At The [facility] Physician GroupComment on above:Performed By: #### URMACRERAT, ADDONUAPLUS, PROCRERAT #### [place] [address] USAH (RBC) [Entitic mass]29.7 piVlsern59.7-34.3The Counts Include 234 Beds At The [facility] Physician GroupComment on above:Performed By: #### URMACRERAT, ADDONUAPLUS, PROCRERAT #### [place] [address] USAV (RBC) [Entitic vol]91.3 yYKgkjly01-057Bph Counts Include 234 Beds At The [facility] Physician GroupComment on above:Performed By: #### URMACRERAT, ADDONUAPLUS, PROCRERAT #### [place] [address] USAMean Corpuscular HGB Conc32.6 g/yFIwbqvr02.0-35.0The Counts Include 234 Beds At The [facility] Physician GroupComment on above:Performed By: #### URMACRERAT, ADDONUAPLUS, PROCRERAT #### [place] [address] USAPlatelet mean volume (Bld) [Entitic vol]8.7 fLNormal 6.3-10.7The Counts Include 234 Beds At The [facility] Physician GroupComment on above:Result Comment: PERFORMED BY: [address] [address] PATHOLOGIST ASSOCIATE PROFESSOR OF PSYCHOLOGY SHANIQUE CALDERON M.D.Performed By: #### URMACRERAT, ADDONUAPLUS, PROCRERAT #### [place] [address] USAPlatelets (Bld) [#/Vol]328 10*3/aIJmxgpl080-273Oxr Counts Include 234 Beds At The [facility] Physician GroupComment on above:Performed By: #### URMACRERAT, ADDONUAPLUS, PROCRERAT #### [place] [address] USARBC (Bld) [#/Vol]3.83 10*6/uLNormal3.60-5.00The Counts Include 234 Beds At The [facility] Physician GroupComment on above:Performed By: #### URMACRERAT, ADDONUAPLUS, PROCRERAT #### [place] [address] USAWBC (Bld) [#/Vol]5.1 10*3/uLNormal3.8-11.6The Counts Include 234 Beds At The [facility] Physician GroupComment on above:Performed By: #### URLIDIARERAT, ADDONUAPLUS, PROCRERAT #### [facility] [address] [place] [address] USAIron and TIBC Profileon 03-11-2024% Iron Jtyqysyafp97.1 % Jbioct61-19Uch Counts Include 234 Beds At The [facility] Physician GroupComment on above:Performed By: #### URMACRERAT, ADDONUAPLUS, PROCRERAT #### [place] [address] USAIron [Mass/Vol]118 ug/lHYvdbsx47-682Xlp Counts Include 234 Beds At The [facility] Physician GroupComment on above:Performed By: #### URMACRERAT, ADDONUAPLUS, PROCRERAT #### [place] [address] USATotal Iron Binding Qnznhfbd519 ug/lASlujkm879-447Usl Counts Include 234 Beds At The [facility] Physician GroupComment on above:Performed By: #### URMACRERAT, ADDONUAPLUS, PROCRERAT #### [facility] [address] [place] [address] USATransferrin [Mass/Vol]280 mg/fLTposxx205-498Qtu Counts Include 234 Beds At The [facility] Physician GroupComment on above:Performed By: #### URMACRERAT, ADDONUAPLUS, PROCRERAT #### [facility] [address] [place] [address] USAMagnesiumon 19-78-6605Xdwkxwwwb [Mass/Vol]1.9 mg/dLNormal 1.9-2.7The Counts Include 234 Beds At The [facility] Physician GroupComment on above:Performed By: #### URMACRERAT, ADDONUAPLUS, PROCRERAT #### [place] [address] USAMicroAlb Creat Ratio,Uon 46-61-4637Rcnintz DL <= 20 mg/L (U) [Mass/Vol]mg/dLNormal0.0-1.8The Counts Include 234 Beds At The [facility] Physician GroupComment on above: Performed By: #### URMACRERAT, ADDONUAPLUS, PROCRERAT #### [facility] [address] [place] [address] USACreatinine, Urine (Random)57.00 mg/dLNormalThe Counts Include 234 Beds At The [facility] Physician GroupComment on above:Result Comment: No reference range established Performed By: #### URMACRERAT, ADDONUAPLUS, PROCRERAT #### [facility] [address] [place] [address] USAMicroalbumin/Creatinine RatioNot performedNormal0.0-30.0 The Counts Include 234 Beds At The [facility] Physician GroupComment on above:Performed By: #### URMACRERAT, ADDONUAPLUS, PROCRERAT #### [facility] [address] [place] [address] USAParathyroid Hormone Intacton 02-12-0301Hdagucehvnr Hormone Wsmrnx66.6 pg/kKOifsqn99-19Rto Counts Include 234 Beds At The [facility] Physician GroupComment on above:Result Comment: PERFORMED BY: [place] [address] PATHOLOGIST ASSOCIATE PROFESSOR OF PSYCHOLOGY SHANIQUE CALDERON M.D.Performed By: #### URMACRERAT, ADDONUAPLUS, PROCRERAT #### [place] [address] USAProtein Creat Ratio Ur Randomon 11-06-8892Fdqjsnd (U) [Mass/Vol]5 mg/dLNormal0-9The Counts Include 234 Beds At The [facility] Physician GroupComment on above: Performed By: #### URMACRERAT, ADDONUAPLUS, PROCRERAT #### [place] [address] USAUrine Protein/Creatinine Ratio88 mg/g{Cre}Normal0-200The Counts Include 234 Beds At The [facility] Physician GroupComment on above:Result Comment: PERFORMED BY: [place] [address] PATHOLOGIST ASSOCIATE PROFESSOR OF PSYCHOLOGY SHANIQUE CALDERON M.D.Performed By: #### KWAMERERAT, ADDONUAPLUS, PROCRERAT #### [place] [address] USARenal Function Panelon 71-39-8129Nokoxlp [Mass/Vol]3.9 g/dLNormal3.5-5.7The Counts Include 234 Beds At The [facility] Physician GroupComment on above:Performed By: #### URMACRERAT, ADDONUAPLUS, PROCRERAT #### [place] [address] USAAnion gap [Moles/Vol]12.5 mmol/LNormal6.0-15.0The Counts Include 234 Beds At The [facility] Physician GroupComment on above:Performed By: #### URMACRERAT, ADDONUAPLUS, PROCRERAT #### [place] [address] USACalcium [Mass/Vol]9.4 mg/dLNormal8.6-10.3The Counts Include 234 Beds At The [facility] Physician GroupComment on above:Performed By: #### URMACRERAT, ADDONUAPLUS, PROCRERAT #### [place] [address] USAChloride [Moles/Vol]110 mmol/NYjit16-994Cpz Counts Include 234 Beds At The [facility] Physician GroupComment on above:Performed By: #### RAMOS ALEXIS PROCRERAT #### [facility] [address] [place] [address] USACO2 [Moles/Vol]25.0 mmol/HGwnmkm76.0-31.0The Counts Include 234 Beds At The [facility] Physician GroupComment on above:Performed By: #### RAMOS ALEXIS PROCRERAT #### [facility] [address] [place] [address] USACreatinine [Mass/Vol]1.50 mg/dLHigh0.60-1.20The Counts Include 234 Beds At The [facility] Physician GroupComment on above:Performed By: #### RAMOS ALEXIS PROCRERAT #### [facility] [address] [place] [address] USAEstimated GFR41.412 mL/MinNormalThe Counts Include 234 Beds At The [facility] Physician GroupComment on above:Performed By: #### RAMOS ALEXSI PROCRERAT #### [place] [address] USAGlucose [Mass/Vol]88 mg/cEXrumcd61-927Oxx Counts Include 234 Beds At The [facility] Physician GroupComment on above:Result Comment: Random Glucose Reference Range is dependent on time and content of last meal. Glucose of more than 200 mg/dL in a nonstressed, ambulatory subject supports the diagnosis of Diabetes Mellitus. ADA recommended reference rangePerformed By: #### RAMOS ALEXIS PROCRERAT #### [facility] [address] [place] [address] USAPhosphate [Mass/Vol]2.7 mg/dLNormal2.5-4.5The Counts Include 234 Beds At The [facility] Physician GroupComment on above:Performed By: #### RAMOS ALEXIS PROCRERAT #### [facility] [address] [place] [address] USAPotassium [Moles/Vol]4.5 mmol/LNormal3.5-5.1The Counts Include 234 Beds At The [facility] Physician GroupComment on above:Performed By: #### URMACRERAT, ADDONUAPLUS, PROCRERAT #### [facility] [address] [place] [address] USASodium [Moles/Vol]143 mmol/WHqussy290-354Gwb Counts Include 234 Beds At The [facility] Physician GroupComment on above:Performed By: #### URMACRERAT, ADDONUAPLUS, PROCRERAT #### [facility] [address] [place] [address] USAUrea nitrogen [Mass/Vol]18 mg/dLNormal7-25The Counts Include 234 Beds At The [facility] Physician GroupComment on above:Performed By: #### URMACRERAT, ADDONUAPLUS, PROCRERAT #### [facility] [address] [place] [address] USAUric Acidon 29-14-7771Wizix [Mass/Vol]6.3 mg/dLNormal 2.3-6.6The Counts Include 234 Beds At The [facility] Physician GroupComment on above:Performed By: #### URMACRERAT, ADDONUAPLUS, PROCRERAT #### [facility] [address] [place] [address] USAUrinalysison 55-03-6669Lvjoecccwy (U)ClearNormalClearThe Counts Include 234 Beds At The [facility] Physician GroupComment on above:Order Comment: Name Collection Type:: Clean-Voided MidstreamPerformed By: #### URMACRERAT, ADDONUAPLUS, PROCRERAT #### [facility] [address] [place] [address] USABilirubin,UrineNegativeNormalNegativeThe Counts Include 234 Beds At The [facility] Physician GroupComment on above:Order Comment: Name Collection Type:: Clean- Voided MidstreamPerformed By: #### URMACRERAT, ADDONUAPLUS, PROCRERAT #### [facility] [address] [place] [address] USAColor (U)Light-YellowNormalYellowThe Counts Include 234 Beds At The [facility] Physician GroupComment on above:Order Comment: Name Collection Type:: Clean-Voided MidstreamPerformed By: #### URMACRERAT, ADDONUAPLUS, PROCRERAT #### [place] [address] USAGlucose Ql (U)NormalNormalNormalThe Counts Include 234 Beds At [facility] Physician GroupComment on above:Order Comment: Name Collection Type:: Clean-Voided MidstreamPerformed By: #### URMACRERAT, ADDONUAPLUS, PROCRERAT #### [place] [address] USAKetones Ql (U)NegativeNormalNegativeThe Counts Include 234 Beds At [facility] Physician GroupComment on above:Order Comment: Name Collection Type:: Clean- Voided MidstreamPerformed By: #### URMACRERAT, ADDONUAPLUS, PROCRERAT #### [place] [address] USALeukocyte esterase Test strip Ql (U)NegativeNormalNegative The Counts Include 234 Beds At The [facility] Physician GroupComment on above:Order Comment: Name Collection Type:: Clean-Voided MidstreamPerformed By: #### URMACRERAT, ADDONUAPLUS, PROCRERAT #### [place] [address] USANitrite,UrineNegativeNormalNegativeThe Counts Include 234 Beds At [facility] Physician GroupComment on above:Order Comment: Name Collection Type:: Clean-Voided MidstreamPerformed By: #### URMACRERAT, ADDONUAPLUS, PROCRERAT #### [place] [address] USAOccult Blood,UrineNegativeNormalNegativeThe Counts Include 234 Beds At The [facility] Physician GroupComment on above:Order Comment: Name Collection Type:: Clean- Voided MidstreamResult Comment: PERFORMED BY: [place] [address] PATHOLOGIST ASSOCIATE PROFESSOR OF PSYCHOLOGY SHANIQUE CALDERON M.D.Performed By: #### URMACRERAT, ADDONUAPLUS, PROCRERAT #### [place] [address] USApH (U)5.5 [pH]Normal5.0-9.0The Counts Include 234 Beds At [facility]ician Group Comment on above:Order Comment: Name Collection Type:: Clean-Voided Midstream Performed By: #### URMACRERAT, ADDONUAPLUS, PROCRERAT #### [place] [address] USAProtein,UrineNegativeNormalNegativeThe Counts Include 234 Beds At [facility] Physician GroupComment on above:Order Comment: Name Collection Type:: Clean-Voided MidstreamPerformed By: #### URMACRERAT, ADDONUAPLUS, PROCRERAT #### [place] [address] USASpecificy [place],Urine1.892Errecx1.001-1.030The Counts Include 234 Beds At [facility] Physician GroupComment on above:Order Comment: Name Collection Type:: Clean- Voided MidstreamPerformed By: #### URMACRERAT, ADDONUAPLUS, PROCRERAT #### [place] [address] USAUrobilinogen,UrineNormalNormalNormalThe Counts Include 234 Beds At The [facility] Physician GroupComment on above:Order Comment: Name Collection Type:: Clean- Voided MidstreamPerformed By: #### URMACRERAT, ADDONUAPLUS, PROCRERAT #### [place] [address] USAVit. B12/Folate Profileon 66-71-6698Qtbgbdsed (Vitamin B12) [Mass/Vol]4548 pg/cAEdbk155-441Buw Counts Include 234 Beds At [facility] Physician GroupComment on above:Performed By: #### URMACRERAT, ADDONUAPLUS, PROCRERAT #### [place] [address] USAFolate8.2 ng/mLNormal>5.9The Counts Include 234 Beds At [facility]ician Group Comment on above:Result Comment: Folate reference range: >5.9 ng/ml The WHO technical consultation on folate and vitamin b12 deficiencies has determined that folate concentrations less than 4 ng/ml are considered deficient.Performed By: #### URMACRERAT, ADDONUAPLUS, PROCRERAT #### [place] [address] USAVitamin D 25 Hydroxy Totalon 59-34-0391Jiifpou D 25 Hydroxy Total25.0 ng/tHZwz09-854Tms Counts Include 234 Beds At [facility] Physician GroupComment on above: Result Comment: VITAMIN D STATUS 25(OH)VITAMIN D RANGE (ng/mL) Deficient <20 Insufficient 20 to <30 Sufficient 30 to 100 Reference: Karen MF,Nicole NC, Ed LI, et al. Evaluation,treatment, and prevention of vitamin D deficiency; an Endocrine Society clinical practice guideline. JCEM. 2010; 96(7):1911-30. PERFORMED BY: [place] [address] PATHOLOGIST ASSOCIATE PROFESSOR OF PSYCHOLOGY SHANIQUE CALDERON M.D.Performed By: #### RAMOS ALEXIS PROCRERAT #### [place] [address] UJQIuE2o (Bld) [Mass fraction]on 53-19-6066Yfamwwhqupafhs and review of laboratory resultsNormalNOSaint Francis Hospital [facility] HealthcareLaboratory - Hematology and Cell countson 71-82-2072ZpE8v (Bld) [Mass fraction]5.1 %[facility] HealthcareMR LUMBAR SPINE WO CONon 79-37-4399FojBar[place] [id number] Magnetic Resonance Report Signed Patient: SHERLY HUMPHREYS MR#: [id number] : 1970 Acct:[id number] Age/Sex: 53 / F ADM Date: 01/31/24 Loc: MRI Attending Dr: Elizabeth Meneses NP Ordering Physician: Elizabeth Meneses NP Date of Service: 01/31/24 Procedure(s): MR lumbar spine wo con Accession Number(s): [id number] cc: Janene Lew NP; Elizabeth Meneses NP [address] [address] Patient Name: SHERLY HUMPHREYS MRN: [id number] date: 1970 Sex: F Assigned Patient Location: MRI Current Patient Location: Accession/Order Number: [id number] Exam Date: 01/31/2024 10:00 Report Date: 02/01/2024 [...] M.D. Signed By: 02/01/24 0736 DD/ 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 Helper:TBHRadiology, Radiologist, - 02/01/2024 [place] [address] Magnetic Resonance Report Signed Patient: SHERLY HUMPHREYS MR#: [id number] : 1970 Acct:[id number] Age/Sex: 53 / F ADM Date: 01/31/24 Loc: MRI Attending Dr: Elizabeth Meneses NP Ordering Physician: Elizabeth Meneses NP Date of Service: 01/31/24 Procedure(s): MR lumbar spine wo con Accession Number(s): [id number] cc: Janene Lew NP; Elizabeth Meneses NP [place] [address] Patient Name: SHERLY HUMPHREYS MRN: [facility]:[id number] date: 1970 Sex: F Assigned Patient Location: MRI Current Patient Location: Accession/Order Number: [id number] Exam Date: 01/31/2024 10:00 Report Date: 02/01/2024 [...] M.D. Signed By: 02/01/24735 DD/ 2 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 Helper: VARUN [facility] CenterRadiology Study observation (narrative)[facility] LUMBAR SPINE WO CONOrdered By: Radiologist Radiology on 32-09-8618UUYACass Medical Center Work Phone: all CBC WITH AUTO DIFFon 85-12-6133KYGXXLCMG ABSOLUTE AUTO0.1NOMS HealthcareBasophils/100 WBC (Bld)0.6 %0.2 - 2.0 %[facility] Eosinophils/100 WBC (Bld)1.4 %0.9 - 7.0 %[facility] Medical CenterErythrocyte distribution width (RBC) [Ratio]14.1 %11.0 - 15.0 %NOMGolden Valley Memorial HospitalHematocrit (Bld) [Volume fraction]40.0 %36.0 - 48.0 %[facility] Medical CenterHemoglobin (Bld) [Mass/Vol]12.4 g/dL 12.0 - 16.0 g/dLCass Medical CenterIMMATURE GRANULOCYTES ABS AUTO0.03[facility] Immature granulocytes/100 WBC (Bld)0.4 %0.0 - 0.5 %[facility] Medical CenterLYMPHOCYTES ABSOLUTE AUTO1.9NOMS HealthcareLymphocytes/100 WBC (Bld)24.7 %20.5 - 60.0 %[facility] Medical CenterMCH (RBC) [Entitic mass]28.4 pg26.7 - 34.0 pgNOHermann Area District HospitalMCHC (RBC) [Mass/Vol]31.0 g/dL29.9 - 35.2 g/dLCass Medical CenterMCV (RBC) [Entitic vol]91.5 fL 81.0 - 99.0 fLNOOH HealthcareMONOCYTES ABSOLUTE AUTO0.4[facility]S [facility] Monocytes/100 WBC (Bld)4.6 %1.7 - 12.0 %NOMGolden Valley Memorial HospitalNEUTROPHILS ABSOLUTE AUTO 5.3NOMS HealthcareNeutrophils/100 WBC (Bld)68.3 %43.0 - 75.0 %[facility] Platelet mean volume (Bld) [Entitic vol]11.1 fL9.5 - 13.5 fLNOMS HealthcareTB EO #0.1NOMS HealthcareTBH BTS173KTME HealthcareTBH RBC4.37NOMS HealthcareTBH WBC 7.8NOMS HealthcareCLINISYNCNOMS HealthcareOffice Visiton 08-75-8251Xmojsy-up [id number] Sherly Humphreys Amanda 1970 F Date Provider Department Center 12/18/2023 271-TK [facility] No family history on file Level of Service:[address] [place] OFFICE/OUTPATIENT ESTABLISHED LOW MDM 20 [facility] HospitalGlucose Glucometer (BldC) [Mass/Vol]Ordered By: Ban Clemente on 39-20-5753Idficub [Mass/Vol]107 mg/dLSt. Rita'S HospitalComment on above:Random Glucose Reference Range is dependent on time and content of last meal. Glucose of more than 200 mg/dL in a nonstressed, ambulatory subject supports the diagnosis of Diabetes Mellitus.No Panel InformationOrdered By: Ban Clemente on 13-27-4204Nlippky Glucose CommentGlu2: cleaned meterSt. Rita'S HospitalCalcium [Mass/volume] in Serum or PlasmaOrdered By: Fernando Rosenberg on 14-69-7514Eevsmox [Mass/Vol]9.7 mg/dL 8.6-10.3FMercy Health Tiffin HospitalCarbon dioxide, total [Moles/volume] in Serum or PlasmaOrdered By: Fernando Rosenberg on 80-82-1991JC5 [Moles/Vol]26.7 mmol/L21.0-31.0St. Rita'S HospitalChloride [Moles/volume] in Serum or PlasmaOrdered By: Fernando Rosenberg on 46-57-7687Shvsojjr [Moles/Vol] 107 mmol/I90-318EzyimufcvSt. Rita'S HospitalCreatinine [Mass/volume] in Serum or PlasmaOrdered By: Fernando Rosenberg on 27-16-3586Ytbexlwmfz [Mass/Vol]2.04 mg/dLHigh0.60-1.20St. Rita'S HospitalGlucose [Mass/volume] in Serum or PlasmaOrdered By: Fernando Rosenberg on 10-11-2023 Glucose [Mass/Vol]96 mg/uG65-822GjwvyvrlpSt. Rita'S HospitalComment on above:ADA recommended reference rangeRandom Glucose Reference Range is dependent on time and content of last meal. Glucose of more than 200 mg/dL in a nonstressed, ambulatory subject supports the diagnosisof Diabetes Mellitus.No Panel InformationOrdered By: Fernando Rosenberg on 01-42-7575Haripqwep GFR (CKD-EPI)28.812 mL/MinSt. Rita'S HospitalPharmacy Creatinine Clearance (ChemN/[facility] CompanyPotassium [Moles/volume] in Serum or PlasmaOrdered By: Fernando Rosenberg on 79-55-2236Ajjlnzoyp [Moles/Vol]5.2 mmol/LHigh3.5-5.1FSt. Charles Hospitalerum or plasma anion gap determinationOrdered By: Fernando Rosenberg on 73-97-0555Zcplt gap [Moles/Vol]11.5 mmol/L6.0-15.0[facility] - Andersonodium [Moles/volume] in Serum or PlasmaOrdered By: Fernando Rosenberg on 10-11-2023 Sodium [Moles/Vol]140 mmol/N263-389EftfjvkqhSt. Rita'S HospitalUrea nitrogen [Mass/volume] in Serum or PlasmaOrdered By: Fernando Rosenberg on 28-62-4986Kvty nitrogen [Mass/Vol]41 mg/dLHigh7-25St. Rita'S HospitalBasophils Auto (Bld) [#/Vol]Ordered By: Fernando Rosenberg on 10-02-2023 Basophils (Bld) [#/Vol]0.0 10*3/uL0.0-0.2FMercy Health Tiffin Hospital Basophils/100 WBC Auto (Bld)Ordered By: Fernandojessica Rosenberg on 10-02-2023 Basophils/100 WBC (Bld)0.8 %.St. Rita'S HospitalCalcium [Mass/volume] in Serum or PlasmaOrdered By: Fernando Rosenberg on 10-02-2023 Calcium [Mass/Vol]9.0 mg/dL8.6-10.3FMercy Health Tiffin HospitalCarbon dioxide, total [Moles/volume] in Serum or PlasmaOrdered By: Fernando Rosenberg on 60-94-8151AS1 [Moles/Vol]26.9 mmol/L21.0-31.0St. Rita'S HospitalChloride [Moles/volume] in Serum or PlasmaOrdered By: Fernando Petersenny on 18-27-1867Oqjudenc [Moles/Vol]110 mmol/IJcgs82-364KndhedmgwSt. Rita'S HospitalCreatinine [Mass/volume] in Serum or PlasmaOrdered By: Fernando Petersenny on 44-12-0383Prftpxcqmr [Mass/Vol]1.52 mg/dLHigh0.60-1.20St. Rita'S HospitalComment on above:Delta: 2.27 on 10/01/23-0758Eosinophils Auto (Bld) [#/Vol]Ordered By: Fernadno Doamefroedtert kenosha medical center on 76-79-9365Qtbhijjpkai (Bld) [#/Vol]0.2 10*3/uL0.0-0.45St. Rita'S HospitalEosinophils/100 WBC Auto (Bld)Ordered By: Fernando Dowestern [facility] on 69-15-5915Hgxdalzqygk/100 WBC (Bld) 3.4 %.St. Rita'S HospitalErythrocyte distribution width Auto (RBC) [Ratio]Ordered By: Fernando Dowestern [facility] on 84-53-3006Zkmopfskgmm distribution width (RBC) [Ratio]14.3 %11.9-15.3FMercy Health Tiffin HospitalGlucose Glucometer (BldC) [Mass/Vol]Ordered By: Fernandojessica Petersenny on 06-28-3364Uwtvzsq [Mass/Vol]93 mg/dLSt. Rita'S HospitalComment on above:Random Glucose Reference Range is dependent on time and content of last meal. Glucose of more than 200 mg/dL in a nonstressed, ambulatory subject supports the diagnosis of Diabetes Mellitus.Glucose [Mass/volume] in Serum or PlasmaOrdered By: Fernando Rosenberg on 33-04-0272Wwkvnfv [Mass/Vol]85 mg/zH64-598VcfmvsfrtSt. Rita'S HospitalComment on above:ADA recommended reference rangeRandom Glucose Reference Range is dependent on time and content of last meal. Glucose of more than 200 mg/dL in a nonstressed, ambulatory subject supports the diagnosisof Diabetes Mellitus.Hematocrit Auto (Bld) [Volume fraction]Ordered By: Fernando Rosenberg on 12-76-5655Fdhhldeifl (Bld) [Volume fraction]31.5 %Low 34.0-46.4FMercy Health Tiffin HospitalHemoglobin [Mass/volume] in Blood Ordered By: Fernando Rosenberg on 97-10-2123Yklnqiivus (Bld) [Mass/Vol]10.4 g/dLLow11.8-15.4FMercy Health Tiffin HospitalLeukocytes [#/volume] corrected for nucleated erythrocytes in Blood by Automated counOrdered By: Fernando Rosenberg on 74-99-6687ECB corrected for nucl RBC Auto (Bld) [#/Vol]4.8 10*3/uL 3.8-11.6FMercy Health Tiffin HospitalLymphocytes Auto (Bld) [#/Vol]Ordered By: Fernando Rosenberg on 10-03-5444Gvryfvmrpfr (Bld) [#/Vol]2.1 10*3/uL 1.00-4.8[facility] HospitalLymphocytes/100 WBC Auto (Bld)Ordered By: Fernando Rosenberg on 11-80-8005Rrgcvlgisbb/100 WBC (Bld)43.2 %.[facility] HospitalH Auto (RBC) [Entitic mass]Ordered By: Fernando Rosenberg on 69-69-2882TMY (RBC) [Entitic mass]30.1 pg24.7-34.3FMercy Health Tiffin HospitalMCHC Auto (RBC) [Mass/Vol]Ordered By: Fernando Rosenberg on 33-15-3994NMML (RBC) [Mass/Vol]33.2 g/dL32.0-35.0[facility] HospitalMCV Auto (RBC) [Entitic vol]Ordered By: Fernando Rosenberg on 10-02-2023 MCV (RBC) [Entitic vol]90.7 iZ99-381OjwispsquSt. Rita'S HospitalMonocytes Auto (Bld) [#/Vol]Ordered By: Fernando Rosenberg on 24-74-3372Djevdbolg (Bld) [#/Vol]0.3 10*3/uL0.0-0.8[facility] HospitalMonocytes/100 WBC Auto (Bld)Ordered By: Fernando Rosenberg on 00-94-3857Kpemgymqq/100 WBC (Bld)6.[address] [facility]S HospitalNeutrophils Auto (Bld) [#/Vol]Ordered By: Fernando Rosenberg on 78-50-2861[place] (Bld) [#/Vol]2.2 10*3/uL1.8-7.7 [facility] HospitalNeutrophils/100 WBC Auto (Bld)Ordered By: Fernando Rosenberg on 25-69-9780Jtenpzsecmx/100 WBC (Bld)46.2 %.[facility]S HospitalNo Panel InformationOrdered By: Fernando Rosenberg on 95-54-0713Eszxvwvxn GFR (CKD-EPI)41.013 mL/MinSt. Rita'S Hospital Pharmacy Creatinine Clearance (Chem60.65[facility] Nucleated erythrocytes [Presence] in Blood by Automated countOrdered By: Fernando Rosenberg on 91-44-5208Garfnltyb RBC Auto Ql (Bld)0.0 /100{WBC}0-0.5 [facility] HospitalPlatelet mean volume Auto (Bld) [Entitic vol] Ordered By: Fernando Rosenberg on 30-69-9070Qdcumdsj mean volume (Bld) [Entitic vol]9.2 fL6.3-10.7FMercy Health Tiffin HospitalPlatelets Auto (Bld) [#/Vol] Ordered By: Fernando Rosenberg on 44-75-3457Eyzhzgxot (Bld) [#/Vol]230 10*3/uL 150-450St[facility] HospitalPotassium [Moles/volume] in Serum or PlasmaOrdered By: Fernando Rosenberg on 77-69-8772Pvvvynvud [Moles/Vol]4.5 mmol/L3.5-5.1FMercy Health Tiffin HospitalRBC Auto (Bld) [#/Vol]Ordered By: Fernando Rosenberg on 60-47-6706FFL (Bld) [#/Vol]3.47 10*6/uLLow3.60-5.00 [facility] Andersonerum or plasma anion gap determinationOrdered By: Fernando Rosenberg on 51-74-8563Mjcze gap [Moles/Vol]9.6 mmol/L6.0-15.0 [facility] Andersonodium [Moles/volume] in Serum or PlasmaOrdered By: Fernando Rosenberg on 23-65-0821Larqdc [Moles/Vol]142 mmol/N580-355 [facility] HospitalUrea nitrogen [Mass/volume] in Serum or Plasma Ordered By: Fernando Rosenberg on 13-92-3185Xqgp nitrogen [Mass/Vol]34 mg/dL High7-25St. [facility]S HospitalWBC Auto (Bld) [#/Vol]Ordered By: Fernando Rosenberg on 31-75-0231BOS (Bld) [#/Vol]4.8 10*3/uL3.8-11.6FMercy Health Tiffin HospitalActivated partial thromboplastin time (aPTT) in platelet poor plasma by coagulation aOrdered By: Alma Deng on 35-41-7078jAGL Coag (PPP) [Time]30.1 s25.1-36.5FMercy Health Tiffin HospitalComment on above:A hematocrit value greater than 55% may lead to inaccurate results in coagulation testing. Patientshaving hematocrit values >55% require a special collection tube for coagulation studies. Please contact the laboratory at [phone] for redraw instructions.Alanine aminotransferase [Enzymatic activity/volume] in Serum or PlasmaOrdered By: Alma Deng on 86-82-6991SYM [Catalytic activity/Vol]19 U/L7-52[facility] HospitalAlbumin [Mass/volume] in Serum or Plasma by Bromocresol green (BCG) dye binding methoOrdered By: Alma Deng on 55-34-1979Dyyrslj BCG dye [Mass/Vol]3.9 g/dL3.5-5.7FMercy Health Tiffin HospitalAlkaline phosphatase [Enzymatic activity/volume] in Serum or PlasmaOrdered By: Alma Deng on 01-10-5201XIT [Catalytic activity/Vol]56 U/L 34-104St[facility] HospitalAspartate aminotransferase [Enzymatic activity/volume] in Serum or PlasmaOrdered By: Alma Deng on 65-64-2527RZZ [Catalytic activity/Vol]29 U/J20-68YtzeecflrSt. Rita'S HospitalBacteria [Presence] in Urine by AutomatedOrdered By: Alma Deng on 66-73-1859Fowwzonx Auto Ql (U)None seen [HPF]None SeenSt. Rita'S HospitalBilirubin Test strip Ql (U)Ordered By: Alma Deng on 57-19-7851Htrvqowii Ql (U) NegativeNegativeSt. Rita'S HospitalBilirubin.total [Mass/volume] in Serum or PlasmaOrdered By: Alma Deng on 69-46-2790Clbsvscjr [Mass/Vol] 0.3 mg/dL0.3-1.0[facility] HospitalColor Auto (U)Ordered By: Alma Deng on 47-13-8106Dbkit (U)ColorlessYellowSt. Rita'S HospitalCreatinine [Mass/volume] in UrineOrdered By: Alma Deng on 10-01-2023 Creatinine (U) [Mass/Vol]65.00 mg/dLSt. Rita'S HospitalComment on above:No reference range establishedEosinophils detection in urine sediment by Nava stainOrdered By: Alma Deng on 53-78-7711Vcpsvnjrxsh Nava stain Ql (Urine sed)0 %0-1FMercy Health Tiffin HospitalEpithelial cells.squamous [#/area] in Urine sediment by Automated countOrdered By: Alma Deng on 90-42-2448Bqyhvojnmr cells.squamous Auto (Urine sed) [#/Area]N/AFMercy Health Tiffin HospitalErythrocytes [#/area] in Urine sediment by Automated countOrdered By: Alma Deng on 59-45-9292TXA Auto (Urine sed) [#/Area]None seen [HPF]0-4FMercy Health Tiffin HospitalGlobulin Calc (S) [Mass/Vol] Ordered By: Alma Deng on 81-06-8789Jfgnrcso (S) [Mass/Vol]2.2 g/dLSt. Rita'S HospitalGlucose [Mass/volume] in Urine by Test stripOrdered By: Alma Deng on 54-45-0015Hejdlyg Test strip (U) [Mass/Vol]Normal mg/dLNormal St. [facility]'S HospitalHemoglobin Test strip Ql (U)Ordered By: Alma Deng on 53-28-5223Ajqhvxjxzh Ql (U)NegativeNegativeSt. Rita'S HospitalHyaline casts [#/area] in Urine sediment by Automated countOrdered By: Alma Deng on 39-37-4073Azxusrd casts Auto (Urine sed) [#/Area]0-8 [LPF]0-8 [facility]S HospitalINR in Platelet poor plasma by Coagulation assayOrdered By: Alma Deng on 77-38-4925SOD Coag (PPP) [Relative time]1.1 {INR}[facility]S HospitalComment on above:INR Therapeutic Range A) Pre- and [...] strip Ql (U)Ordered By: Alma Deng on 59-27-5475Fcwtome Ql (U)Negative NegativeSt. Rita'S HospitalLeukocyte esterase [Presence] in Urine by Test stripOrdered By: Alma Deng on 97-57-1955Jnrxevkgv esterase Test strip Ql (U)1+HighNegativeSt. Rita'S HospitalLeukocytes [#/area] in Urine sediment by Automated countOrdered By: Alma Deng on 29-90-1585WVQ Auto (Urine sed) [#/Area]3-4 [HPF]0-4FMercy Health Tiffin HospitalMucus [Presence] in Urine by AutomatedOrdered By: Alma Deng on 12-25-5830Opscx Auto Ql (U)Rare [LPF][facility] HospitalNitrite Test strip Ql (U) Ordered By: Alma Deng on 01-14-9014Dlnqwhh Ql (U)NegativeNegTrinity Health System Twin City Medical CenterNo Panel InformationOrdered By: Fernando Rosenberg on 64-73-7700Mzpdnks Glucose CommentGlu2: cleaned meterSt. Rita'S HospitalProtein Test strip (U) [Mass/Vol]Ordered By: Alma Deng on 10-01-2023 Protein (U) [Mass/Vol]NegativeNegTrinity Health System Twin City Medical CenterProtein [Mass/volume] in Serum or PlasmaOrdered By: Alma Deng on 76-87-5534Raghifk [Mass/Vol]6.1 g/dLLow6.4-8.9[facility] HospitalProthrombin time (PT)Ordered By: Alma Deng on 10-16-2160YJ Coag (PPP) [Time]12.2 s9.0-12.9 [facility] HospitalComment on above:A hematocrit value greater than 55% may lead to inaccurate results in coagulation testing. Patientshaving hematocrit values >55% require a special collection tube for coagulation studies. Please contact the laboratory at [phone] for redraw instructions. Serum or plasma albumin/globulin mass ratioOrdered By: Alma Deng on 25-46-9669Nsijnig/Globulin [Mass ratio]1.8 {ratio}[facility] Andersonodium [Moles/volume] in UrineOrdered By: Alma Deng on 10-01-2023 Sodium (U) [Moles/Vol]54.0 mmol/LFMercy Health Tiffin HospitalComment on above:No reference range establishedSpecific gravity Test strip (U) [Rel density]Ordered By: Alma Deng on 90-63-9543Tbuctztp gravity (U) [Rel density]1.0091.001-1.030St[facility]S HospitalUrine appearanceOrdered By: Alma Deng on 50-48-3853Gewhenvhkn (U)ClearClearFirelands Regional Medical CenterUrobilinogen Test strip (U) [Mass/Vol]Ordered By: Alma Deng on 98-31-6720Mwukftjejwpp (U) [Mass/Vol]Normal mg/dLNormalSt. Rita'S HospitalpH Test strip (U)Ordered By: Alma Deng on 59-83-4390nY (U)5.5 [pH]5.0-9.0St[facility]S HospitalMM TOMOSYNTHESIS SCREENING BIon 90-10-5886[place]va[place], [place] [address] Mammography Report Signed Patient: SHERLY HUMPHREYS MR#: [id number] : 1970 Acct:[id number] Age/Sex: 52 / F ADM Date: 09/28/23 Loc: MAMMO Attending Dr: Janene Lew NP Ordering Physician: Janene Lew NP Results: Date of Service: 09/28/23 Follow Up: Procedure(s): MM tomosynthesis screening BI Accession Number(s): [id number] cc: Janene Lew NP Patient Name: SHERLY HUMPHREYS MR#: [id number] : 1970 Exam Date: 09/28/2023 Ordering Doctor: [...] head/neck cancer at age 73. LOCATION: [facility] BREAST COMPOSITION: There are scattered areas [...] Signed By: 09/28/23 1050 DD/ 1049 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 Helper:VLADHRadiology, Radiologist, - 09/28/2023 [place] [address] Mammography Report Signed Patient: SHERLY HUMPHREYS MR#: [id number] : 1970 Acct:[id number] Age/Sex: 52 / F ADM Date: 09/28/23 Loc: MAMMO Attending Dr: Janene Lew NP Ordering Physician: Janeen Lew NP Results: Date of Service: 09/28/23 Follow Up: Procedure(s): MM tomosynthesis screening BI Accession Number(s): [id number] cc: Janene Lew NP Patient Name: SHERLY HUMPHREYS MR#: [id number] : 1970 Exam Date: 09/28/2023 Ordering Doctor: [...] head/neck cancer at age 73. LOCATION: [facility] BREAST COMPOSITION: There are scattered areas [...] Signed By: 09/28/23 1050 DD/ 1049 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 Helper: VARUN HealthcareRadiology Study observation (narrative)[facility] TOMOSYNTHESIS SCREENING BIOrdered By: Radiologist Radiology on 78-78-0348OVKV Healthcare Work Phone: albumin [Mass/volume] in Serum or Plasma by Bromocresol green (BCG) dye binding methoOrdered By: Halle Mac on 08-10-2023 Albumin BCG dye [Mass/Vol]4.0 g/dL3.5-5.7FMercy Health Tiffin Hospital Automated erythrocytes count in urine sediment (number/area)Ordered By: Halle Mac on 04-89-9354TAH Auto (Urine sed) [#/Area]None seen [HPF]0-4FMercy Health Tiffin HospitalAutomated leukocytes count in urine sediment (number/area)Ordered By: Halle Mac on 56-07-8235UZV Auto (Urine sed) [#/Area] 3-4 [HPF]0-4FMercy Health Tiffin HospitalBilirubin Test strip Ql (U)Ordered By: Halle Mac on 45-23-5395Turcgbnxi Ql (U)NegativeNegativeSt. Rita'S HospitalCalcium [Mass/volume] in Serum or PlasmaOrdered By: Halle Mac on 06-73-7840Mvqwprg [Mass/Vol]9.3 mg/dL8.6-10.3FMercy Health Tiffin HospitalCarbon dioxide, total [Moles/volume] in Serum or PlasmaOrdered By: Halle Mac on 80-25-6820EM6 [Moles/Vol]24.8 mmol/L21.0-31.0[facility] HospitalChloride [Moles/volume] in Serum or PlasmaOrdered By: Halle Mac on 51-71-4429Nvfmxbhu [Moles/Vol]110 mmol/MQmvw01-827FrjsxudfsSt. Rita'S HospitalColor Auto (U)Ordered By: Halle Mac on 06-29-5523Plwcf (U)YellowYellow St[facility]'S HospitalCreatinine [Mass/volume] in Serum or Plasma Ordered By: Halle Mac on 13-26-8661Edziyraxfe [Mass/Vol]1.59 mg/dLHigh 0.60-1.20[facility] HospitalCreatinine [Mass/volume] in Urine Ordered By: Halle Mac 92-00-7461Vpdttggzwl (U) [Mass/Vol]92.0 mg/dL [facility] HospitalComment on above:No reference range established Erythrocyte distribution width Auto (RBC) [Ratio]Ordered By: Halle Mac on 64-15-5741Thacqkgctmq distribution width (RBC) [Ratio]15.1 %11.9-15.3FMercy Health Tiffin HospitalFerritin [Mass/volume] in Serum or PlasmaOrdered By: Halle Mac on 57-89-8177Japzgdta [Mass/Vol]62.9 ng/mL11.0-306.8[facility] HospitalFolate [Mass/volume] in Serum or PlasmaOrdered By: Halle Mac 22-12-9960Fzlyzs [Mass/Vol]15.7 ng/mL>5.9[facility] Comment on above:Folate reference range: >5.9 ng/mlThe WHO technical consultation on folate and vitamin v44hybyaejfehhm has determined that folate concentrations lessthan 4 ng/ml are considered deficient.Glucose [Mass/volume] in Serum or PlasmaOrdered By: Halle Mac 58-20-2279Glleyqq [Mass/Vol]94 mg/nO08-980MyvsmflgmSt. Rita'S HospitalComment on above:ADA recommended reference rangeRandom Glucose Reference Range is dependent on time and content of last meal. Glucose of more than 200 mg/dL in a nonstressed, ambulatory subject supports the diagnosisof Diabetes Mellitus.Hematocrit Auto (Bld) [Volume fraction]Ordered By: Halle Mac 69-76-3021Dfjdyqtqhn (Bld) [Volume fraction]35.0 %34.0-46.4FMercy Health Tiffin HospitalHemoglobin [Mass/volume] in BloodOrdered By: Halle Mac 28-22-6262Tpgoqcxpuv (Bld) [Mass/Vol]11.5 g/dLLow11.8-15.4FMercy Health Tiffin HospitalIron [Mass/volume] in Serum or PlasmaOrdered By: Halle Mac on 74-66-1342Bgtu [Mass/Vol]75 ug/hU96-970WvzcwbnkySt. Rita'S HospitalIron binding capacity [Mass/volume] in Serum or PlasmaOrdered By: Halle Mac on 97-91-0891Wxvt binding capacity [Mass/Vol]480 ug/sSSuwj721-931XboukpgrtSt. Rita'S Hospital Iron saturation [Mass Fraction] in Serum or PlasmaOrdered By: Halle Mac on 09-88-0388Hqfq saturation [Mass fraction]15.6 %Jsp79-86OxzjuuxxoSt. Rita'S HospitalKetones Auto test strip (U) [Mass/Vol]Ordered By: Halle Mac on 16-78-8779Seshqcm (U) [Mass/Vol]NegativeNegativeSt. Rita'S HospitalLaboratory - UrinalysisOrdered By: Halle Mac on 46-54-7032Dzbjotx casts LM Ql (Urine sed)None seen [LPF]0-8St. [facility]S HospitalLeukocytes [#/volume] corrected for nucleated erythrocytes in Blood by Automated coun Ordered By: Halle Mac on 37-13-4214XYJ corrected for nucl RBC Auto (Bld) [#/Vol]4.0 10*3/uL3.8-11.6FAshtabula General Hospital Auto (RBC) [Entitic mass]Ordered By: Halle Mac on 29-02-7367VHN (RBC) [Entitic mass]29.6 pg24.7-34.3FKettering Health HamiltonHC Auto (RBC) [Mass/Vol]Ordered By: Halle Mac on 86-43-7478OHNY (RBC) [Mass/Vol]32.9 g/dL32.0-35.0[facility] HospitalV Auto (RBC) [Entitic vol]Ordered By: Halle Mac on 36-00-5201MOC (RBC) [Entitic vol]90.0 gY30-480BtllibowiSt. Rita'S Hospital Magnesium [Mass/volume] in Serum or PlasmaOrdered By: Halle Mac on 08-10-2023 Magnesium [Mass/Vol]1.9 mg/dL1.9-2.7FMercy Health Tiffin HospitalNitrite Test strip Ql (U)Ordered By: Halle Mac on 06-46-3522Gfosmha Ql (U)Negative NegativeSt. Rita'S HospitalNo Panel InformationOrdered By: Halle Mac on 91-31-6046Gxjnhfbdd GFR (CKD-EPI)38.856 mL/MinSt. Rita'S HospitalPharmacy Creatinine Clearance (ChemN/AFMercy Health Tiffin HospitalParathyrin.intact [Mass/volume] in Serum or PlasmaOrdered By: Halle Mac on 60-76-5600Otrclkmumo.intact [Mass/Vol]38.7 pg/sQ37-83YvykmoeucSt. Rita'S HospitalPhosphate [Mass/volume] in Serum or PlasmaOrdered By: Halle Mac on 39-66-2961Rvxbthobl [Mass/Vol]3.7 mg/dL2.5-4.5FMercy Health Tiffin HospitalPlatelet mean volume Auto (Bld) [Entitic vol]Ordered By: Halle Mac on 09-86-8987Mupkuxjp mean volume (Bld) [Entitic vol]9.8 fL6.3-10.7FMercy Health Tiffin HospitalPlatelets Auto (Bld) [#/Vol]Ordered By: Halle Mac on 44-20-8053Yeasillyc (Bld) [#/Vol]217 10*3/uW173-983EzdyonjavSt. Rita'S HospitalPotassium [Moles/volume] in Serum or PlasmaOrdered By: Halle Mac on 48-90-4014Swraqlrtr [Moles/Vol]4.5 mmol/L3.5-5.1FMercy Health Tiffin HospitalProtein Auto test strip (U) [Mass/Vol]Ordered By: Halle Mac on 64-06-5892Kblodmh (U) [Mass/Vol]NegativeNegativeSt. Rita'S HospitalProtein [Mass/volume] in UrineOrdered By: Halle Mac on 08-10-2023 Protein (U) [Mass/Vol]mg/dL0-9St. [facility]S HospitalRBC Auto (Bld) [#/Vol]Ordered By: Halle Mac on 11-48-0810HLT (Bld) [#/Vol]3.89 10*6/uL 3.60-5.00[facility] Andersonerum or plasma anion gap determinationOrdered By: Halle Mac on 88-38-7880Qdmpv gap [Moles/Vol]11.7 mmol/L6.0-15.0[facility] - Andersonodium [Moles/volume] in Serum or PlasmaOrdered By: Halle Mac on 60-34-8064Momusx [Moles/Vol]142 mmol/G746-657 [facility] - Andersonpecific gravity Auto test strip (U) [Rel density]Ordered By: Halle Mac on 80-88-0263Qdjrnfbq gravity (U) [Rel density] 1.0151.001-1.030[facility] - Andersonquamous epithelial cells detection in urine sediment by light microscopyOrdered By: Halle Mac on 28-00-4667Uljegrsvle cells.squamous LM Ql (Urine sed)None seen [HPF]0-2FMercy Health Tiffin HospitalTransferrin [Mass/volume] in Serum or PlasmaOrdered By: Halle Mac on 06-61-3811Dnnpaxsscxw [Mass/Vol]343 mg/uC403-696GjgavloywSt. Rita'S HospitalUrate [Mass/volume] in Serum or PlasmaOrdered By: Halle Mac 41-20-0968Cknmv [Mass/Vol]8.6 mg/dLHigh2.3-6.6FMercy Health Tiffin HospitalUrea nitrogen [Mass/volume] in Serum or PlasmaOrdered By: Halle Mac on 09-58-9295Qjjx nitrogen [Mass/Vol]32 mg/dLHigh7-25St. [facility]S HospitalUrine bacteria detection by automated methodOrdered By: Halle Mac 93-27-5020Mqhzpfdy Auto Ql (U)None seenNone SeenSt. Rita'S HospitalUrine clarity by refractometry automatedOrdered By: Halle Mac 29-94-8062Chxcbbw Refractometry automated (U)ClearClearFMercy Health Tiffin HospitalUrine glucose measurement by automated test strip (mass/volume) Ordered By: Halle Mac 43-82-1191Mcccdux Auto test strip (U) [Mass/Vol] Normal mg/dLNormalSt. Rita'S HospitalUrine hemoglobin detection by automated test stripOrdered By: Halle Mac on 16-04-4334Zdnmhwbgmt Auto test strip Ql (U)NegativeNegativeSt. Rita'S HospitalUrine leukocyte esterase detection by automated test stripOrdered By: Halle Mac on 08-10-2023 Leukocyte esterase Auto test strip Ql (U)2+HighNegativeSt. Rita'S HospitalUrine protein/creatinine ratioOrdered By: Halle Mac on 09-82-9633Flwhmtx/Creatinine (U) [Ratio]TNPSt. Rita'S Hospital Comment on above:Test not performedUrobilinogen Auto test strip (U) [Mass/Vol] Ordered By: Halle Mac on 64-20-8880Festzbyzwqjd (U) [Mass/Vol]Normal mg/dL NormalSt. Rita'S HospitalVitamin B12 ser/plasOrdered By: Halle Mac on 68-64-8493Xxdnzypkp (Vitamin B12) [Mass/Vol]164 pg/mRWgf247-738 [facility]S HospitalVitamin D+Metabolites [Mass/volume] in Serum or PlasmaOrdered By: Halle Mac on 45-24-7086Gbcrcjh D+Metabolites [Mass/Vol] 22.4 ng/lLMzx12-350JeumyhdlwSt. Rita'S HospitalComment on above:VITAMIN D STATUS 25(OH)VITAMIN D RANGE (ng/mL) Deficient <20 Insufficient 20 to <89Pteepswplx53 to 100Reference: Karen MF,Nicole SCOTT, Ed LI, et al. Evaluation,treatment, and prevention of vitamin D deficiency; an Endocrine Society clinical practice guideline. JCEM. 2010; 96(7):1911-30.pH Auto test strip (U)Ordered By: Halle Mac on 41-14-6079iE (U)5.5 [pH]5.0-9.0[facility] HospitalValproate [Mass/volume] in Serum or PlasmaOrdered By: Fauzia Huffman on 42-93-2412Zuwswnive [Mass/Vol]14.5 ug/mL50.0-100.0St[facility]S HospitalComment on above:Last dose: -Alanine aminotransferase [Enzymatic activity/volume] in Serum or PlasmaOrdered By: Halle Mac on 99-90-0741VXV [Catalytic activity/Vol]16 U/L7-52St[facility]S HospitalAlbumin [Mass/volume] in Serum or Plasma by Bromocresol green (BCG) dye binding methoOrdered By: Halle Mac on 24-87-2501Dslatzd BCG dye [Mass/Vol]4.3 g/dL3.5-5.7FMercy Health Tiffin HospitalAlkaline phosphatase [Enzymatic activity/volume] in Serum or PlasmaOrdered By: Halle Mac on 41-84-7346PKG [Catalytic activity/Vol]61 U/E13-478PzhtwklnkSt. Rita'S HospitalAspartate aminotransferase [Enzymatic activity/volume] in Serum or PlasmaOrdered By: Halle Mac on 70-61-7241NAR [Catalytic activity/Vol]23 U/U67-11GmjaecgjuSt. Rita'S HospitalAutomated erythrocytes count in urine sediment (number/area) Ordered By: Halle Mac on 79-04-7545TGA Auto (Urine sed) [#/Area]3-4 [HPF]0-4 [facility] HospitalAutomated leukocytes count in urine sediment (number/area)Ordered By: Halle Mac on 96-49-0499ZOY Auto (Urine sed) [#/Area] 10-19 [HPF]0-4FMercy Health Tiffin HospitalBilirubin Test strip Ql (U) Ordered By: Halle Mac on 45-40-1598Jdloqoexb Ql (U)2+NegativeSt. Rita'S HospitalBilirubin.total [Mass/volume] in Serum or PlasmaOrdered By: Halle Mac on 50-02-5181Iumdxaqdt [Mass/Vol]0.5 mg/dL0.3-1.0[facility] HospitalCalcium [Mass/volume] in Serum or PlasmaOrdered By: Halle Mac on 64-84-8844Cjgmfsh [Mass/Vol]9.3 mg/dL8.6-10.3FMercy Health Tiffin HospitalCarbon dioxide, total [Moles/volume] in Serum or PlasmaOrdered By: Halle Mac on 32-79-0646PY8 [Moles/Vol]28.0 mmol/L21.0-31.0[facility] HospitalCasts typing in urine sediment by light microscopyOrdered By: Halle Mac on 79-25-3959Etcft LM Nom (Urine sed)None seen [LPF]None Seen [facility]S HospitalChloride [Moles/volume] in Serum or Plasma Ordered By: Halle Mac on 84-70-4217Vrnxysuu [Moles/Vol]107 mmol/L98-107 [facility] HospitalColor Auto (U)Ordered By: Halle Mac on 17-27-7920Lcxhd (U)Dark yellowYellowSt. Rita'S HospitalCreatinine [Mass/volume] in Serum or PlasmaOrdered By: Halle Mac on 98-99-4292Mkcednzplf [Mass/Vol]1.52 mg/dL0.60-1.20St[facility] HospitalCreatinine [Mass/volume] in UrineOrdered By: Halle Mac on 82-60-9298Ttnecdqndt (U) [Mass/Vol]mg/dL11.0-20.0[facility] HospitalErythrocyte distribution width Auto (RBC) [Ratio]Ordered By: Halle Mac on 05-17-2023 Erythrocyte distribution width (RBC) [Ratio]13.4 %11.9-15.3FMercy Health Tiffin HospitalFerritin [Mass/volume] in Serum or PlasmaOrdered By: Halle Mac on 57-59-5625Njetaihg [Mass/Vol]51.8 ng/mL11.0-306.8[facility] HospitalFine granular cast count in urine sediment by microscopy (number/low power field )Ordered By: Halle Mac on 87-75-9009Rgpu Granular Casts LM.LPF (Urine sed) [#/Area]5-9 [LPF]0-1FMercy Health Tiffin HospitalGlobulin Calc (S) [Mass/Vol]Ordered By: Halle Mac on 07-28-5883Zvizbxjo (S) [Mass/Vol]2.3 g/dL [facility] HospitalGlucose [Mass/volume] in Serum or PlasmaOrdered By: Halle Mac on 29-43-0214Uygaved [Mass/Vol]123 mg/iA32-184YlltmzaizSt. Rita'S HospitalComment on above:ADA recommended reference rangeRandom Glucose Reference Range is dependent on time and content of last meal. Glucose of more than 200 mg/dL in a nonstressed, ambulatory subject supports the diagnosisof Diabetes Mellitus.Hematocrit Auto (Bld) [Volume fraction]Ordered By: Halle Mac on 70-42-4942Nbmhbuofyi (Bld) [Volume fraction]36.1 %34.0-46.4 [facility] HospitalHemoglobin [Mass/volume] in BloodOrdered By: Halle Mac on 44-38-1447Heefpfbujc (Bld) [Mass/Vol]11.8 g/dL11.8-15.4FMercy Health Tiffin HospitalIron [Mass/volume] in Serum or PlasmaOrdered By: Halle Mac on 25-76-1794Iaec [Mass/Vol]57 ug/mN25-166WejpcpnkqSt. Rita'S HospitalIron binding capacity [Mass/volume] in Serum or PlasmaOrdered By: Halle aMc on 80-90-1877Ijig binding capacity [Mass/Vol]538 ug/tM344-051JboxlrbqhSt. Rita'S HospitalIron saturation [Mass Fraction] in Serum or PlasmaOrdered By: Halle Mac on 15-58-1831Wito saturation [Mass fraction]10.6 %20-50 [facility]S HospitalKetones Auto test strip (U) [Mass/Vol]Ordered By: Halle Mac on 34-08-4346Xtmvwpn (U) [Mass/Vol]1+NegativeSt. Rita'S HospitalLaboratory - UrinalysisOrdered By: Halle Mac on 05-17-2023 Hyaline casts LM Ql (Urine sed)None seen [LPF]0-8St. [facility]'S HospitalLeukocytes [#/volume] corrected for nucleated erythrocytes in Blood by Automated counOrdered By: Halle Mac on 26-58-7046CYA corrected for nucl RBC Auto (Bld) [#/Vol]5.5 10*3/uL3.8-11.6FMercy Health Tiffin HospitalMCH Auto (RBC) [Entitic mass]Ordered By: Halle Mac on 58-45-4614MGC (RBC) [Entitic mass]29.4 pg24.7-34.3FMercy Health Tiffin HospitalMCHC Auto (RBC) [Mass/Vol] Ordered By: Halle Mac on 18-34-8193UNDP (RBC) [Mass/Vol]32.8 g/dL32.0-35.0 [facility] HospitalMCV Auto (RBC) [Entitic vol]Ordered By: Halle Mac on 74-51-7601ATG (RBC) [Entitic vol]89.4 cO46-883IcbvxopsoSt. Rita'S HospitalMagnesium [Mass/volume] in Serum or PlasmaOrdered By: Halle Mac on 92-87-7208Oivlfyfsc [Mass/Vol]2.0 mg/dL1.9-2.7FMercy Health Tiffin HospitalMucus LM Ql (Urine sed)Ordered By: Halle Mac on 05-88-0098Kdypq Ql (Urine sed)3+ [LPF][facility]'S HospitalNitrite Test strip Ql (U) Ordered By: Halle Mac on 19-23-5865Ebafduk Ql (U)NegativeNegativeSt. Rita'S HospitalNo Panel InformationOrdered By: Halle Mac on 16-63-2872Spikprwwg GFR (CKD-EPI)41.013 mL/MinSt. Rita'S Hospital Pharm[facility] Creatinine Clearance (ChemN/[facility] Parathyrin.intact [Mass/volume] in Serum or PlasmaOrdered By: Halle Mac on 58-02-0892Mqqvvwatzc.intact [Mass/Vol]36.3 pg/hY56-37NyqgdvbdtSt. Rita'S HospitalPhosphate [Mass/volume] in Serum or PlasmaOrdered By: Halle Mac on 74-04-3247Onddintka [Mass/Vol]4.4 mg/dL2.5-4.5FMercy Health Tiffin Hospital Platelet mean volume Auto (Bld) [Entitic vol]Ordered By: Halle Mac on 84-66-1858Lephumgd mean volume (Bld) [Entitic vol]9.5 fL6.3-10.7FMercy Health Tiffin HospitalPlatelets Auto (Bld) [#/Vol]Ordered By: Halle Mac on 61-97-8252Heldtqaot (Bld) [#/Vol]233 10*3/wR319-146PhnsedppoSt. Rita'S HospitalPotassium [Moles/volume] in Serum or PlasmaOrdered By: Halle Mac on 82-09-0729Gqxwlrfif [Moles/Vol]3.8 mmol/L3.5-5.1FMercy Health Tiffin HospitalProtein Auto test strip (U) [Mass/Vol]Ordered By: Halle Mac on 43-98-2834Nxytzek (U) [Mass/Vol]30 mg/dLNegativeSt. Rita'S HospitalProtein [Mass/volume] in Serum or PlasmaOrdered By: Halle Mac on 32-08-7057Iqozqfk [Mass/Vol]6.6 g/dL6.4-8.9[facility] Protein [Mass/volume] in UrineOrdered By: Halle Mac on 63-02-9094Lxdexjm (U) [Mass/Vol]35 mg/dL0-9St. Rita'S HospitalRBC Auto (Bld) [#/Vol] Ordered By: Halle Mac on 20-72-5784QDO (Bld) [#/Vol]4.03 10*6/uL3.60-5.00 [facility] Anderson[facility] or plasma albumin/globulin mass ratio Ordered By: Halle Mac on 00-57-3516Nmvmnmi/Globulin [Mass ratio]1.9 {ratio} [facility] Andersonerum or plasma anion gap determinationOrdered By: Halle Mac on 32-79-6918Dibvo gap [Moles/Vol]10.8 mmol/L6.0-15.0[facility] Andersonodium [Moles/volume] in Serum or PlasmaOrdered By: Halle Mac on 37-53-5636Qqoolh [Moles/Vol]142 mmol/L642-864VudqeljgcOur Lady of Mercy Hospital - Andersonpecific gravity Auto test strip (U) [Rel density]Ordered By: Halle Mac on 13-12-3570Rchseiix gravity (U) [Rel density]1.0251.001-1.030[facility] Andersonquamous epithelial cells detection in urine sediment by light microscopyOrdered By: Halle Mac on 04-73-6876Injjamaedj cells.squamous LM Ql (Urine sed)3-4 [HPF]0-2FMercy Health Tiffin HospitalTransferrin [Mass/volume] in Serum or PlasmaOrdered By: Halle Mac on 05-17-2023 Transferrin [Mass/Vol]384 mg/nJ698-658UgodjozgeSt. Rita'S HospitalUrate [Mass/volume] in Serum or PlasmaOrdered By: Halle Mac on 66-15-1046Ugsee [Mass/Vol]7.3 mg/dL2.3-6.6FMercy Health Tiffin HospitalUrea nitrogen [Mass/volume] in Serum or PlasmaOrdered By: Halle Mac on 93-58-8530Tisj nitrogen [Mass/Vol]26 mg/dL7-25St. Rita'S HospitalUrine bacteria detection by automated methodOrdered By: Halle Mac on 76-76-5892Cpfxxlwk Auto Ql (U)None seenNone SeenSt. Rita'S HospitalUrine clarity by refractometry automatedOrdered By: Halle Mac on 62-49-0569Dmaxhen Refractometry automated (U)CloudyClearFMercy Health Tiffin HospitalUrine culture routineOrdered By: Halle Mac on 99-94-4877Pvnlaizp identified Cx Nom (U)2 DaysSt. Rita'S HospitalUrine glucose measurement by automated test strip (mass/volume)Ordered By: Halle Mac on 72-47-6027Fgfcinz Auto test strip (U) [Mass/Vol]Normal mg/dLNormalSt. Rita'S HospitalUrine hemoglobin detection by automated test stripOrdered By: Halle Mac on 72-48-8189Utxodkxrqe Auto test strip Ql (U)NegativeNegativeSt. Rita'S HospitalUrine leukocyte esterase detection by automated test stripOrdered By: Halle Mac on 23-87-8640Ieommbrkz esterase Auto test strip Ql (U)1+ NegativeSt. Rita'S HospitalUrine protein/creatinine ratioOrdered By: Halle Mac on 96-00-8843Spxmfej/Creatinine (U) [Ratio]TNPSt. Rita'S HospitalComment on above:Test not performedUrobilinogen Auto test strip (U) [Mass/Vol]Ordered By: Halle Mac on 88-89-2923Sqahcjilifar (U) [Mass/Vol]Normal mg/dLNormalSt. Rita'S HospitalValproate [Mass/volume] in Serum or PlasmaOrdered By: Fauzia Huffman on 64-31-4433Defnbgqkg [Mass/Vol]24.0 ug/mL50.0-100.0St. Rita'S HospitalComment on above: Last dose: -Vitamin D+Metabolites [Mass/volume] in Serum or PlasmaOrdered By: Halle Mac on 89-60-4853Ssrpvwq D+Metabolites [Mass/Vol]24.3 ng/dK10-237 St. Rita'S HospitalComment on above:VITAMIN D STATUS 25(OH)VITAMIN D RANGE (ng/mL) Deficient <20 Insufficient 20 to <26Evuztbagav97 to 100Reference: Karen MF,Nicole NC, Ed LI, et al. Evaluation,treatment, and prevention of vitamin D deficiency; an Endocrine Society clinical practice guideline. JCEM. 2010; 96(7):1911-30.Yeast detection in urine sediment by light microscopyOrdered By: Halle Mac on 77-48-6185Bzmjz LM Ql (Urine sed)None seen [HPF]None SeenSt. Rita'S HospitalpH Auto test strip (U)Ordered By: Halle Mac on 57-57-5447dB (U) 5.0 [pH]5.0-9.0St. Rita'S HospitalCA ECHO DOPPLER COMPLETEon 33-20-[address]343[address] [address] Cardiology Report Signed Patient: SHERLY HUMPHREYS MR#: [id number] : 1970 Acct:[id number] Age/Sex: 52 / F ADM Date: 05/10/23 Loc: CARD Attending Dr: Jonathan Small NP Ordering Physician: Jonathan Small NP Date of Service: 05/10/23 Procedure(s): CA echo doppler complete Accession Number(s): [id number] cc: Janene Lew NP; Jonathan Small NP Patient Name: SHERLY HUMPHREYS MR#: [id number] : 1970 Exam Date: 05/10/2023 Ordering Doctor: MRS. 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 OFFICER; Jonathan Small ELIER Patient Name: SHERLY HUMPHREYS MR#: [id number] : 1970 Exam Date: 05/10/2023 Ordering Doctor: [...] Signed By: 05/10/23 1439 DD/ 36 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 Helper: [facility] MED[facility] CENTERMynor Wright-Patterson Medical CenterRadiology Study observation (narrative)[facility] Medical CenterCA ECHO DOPPLER COMPLETEOrdered By: Radiologist Radiology on 61-61-4025ONAKCass Medical Center Work Phone: Provider Orderson 18-86-3816Pwrahlbr Orders [id number]#1.00OTGTMetroHealth Cleveland Heights Medical CenterBN on 57-48-4350Bfnfdznjwhk peptide B (Bld) [Mass/Vol]391.0 pg/mLNormal<=900.0The [facility] HospitalComment on above:Performed By: #### LIPID, BMP #### [facility] [address] [place] [address] Dr. Jag Burris AUTO DIFFon 69-06-7701FFQR #0.1 103/ulNormal0.0-0.1The [facility] HospitalComment on above:Performed By: #### LIPID, BMP #### [facility] [address] [place] [address] Dr. Jag WaldropBasophils/100 WBC (Bld)1.4 %Normal0.2-2.0[facility] Comment on above:Performed By: #### LIPID, BMP #### [facility] [address] [place] [address] Dr. Jag Aguero #0.1 103/ulNormal0.0-0.7The [facility] HospitalComment on above: Performed By: #### LIPID, BMP #### [facility] [address] [place] [address] Dr. Jag Hartosinophils/100 WBC (Bld)1.6 %Normal0.9-7.0The [facility] Comment on above:Performed By: #### LIPID, BMP #### [facility] [address] [place] [address] Dr. Jag Hartrythrocyte distribution width (RBC) [Ratio]15.0 %Nhdnia79.0-15.0 The [facility] HospitalComment on above:Performed By: #### LIPID, BMP #### [facility] [address] [place] [address] Dr. Jag Davisatocrit (Bld) [Volume fraction]37.2 %Gassfn22.0-48.0The [facility] HospitalComment on above:Performed By: #### LIPID, BMP #### [facility] [address] [place] [address] Dr. Jag WaldropHemoglobin (Bld) [Mass/Vol]11.6 g/dLCritically low12.0-16.0The [facility] HospitalComment on above:Performed By: #### LIPID, BMP #### [facility] [address] [place] [address] Dr. Jag Del Real #0.01 10e3/ulNormal0.00-0.03The [facility] HospitalComment on above:Performed By: #### LIPID, BMP #### [facility] [address] [place] [address] Dr. Jag Del Real %0.2 %Normal0.0-0.5The [facility] HospitalComment on above: Performed By: #### LIPID, BMP #### [facility] [address] [place] [address] Dr. Jag Boo #1.9 103/ulNormal1.2-3.8The [facility] HospitalComment on above:Performed By: #### LIPID, BMP #### [facility] [address] [place] [address] Dr. Jag Castlehocytes/100 WBC (Bld)39.1 %Supwer21.5-60.0The [facility] HospitalComment on above:Performed By: #### LIPID, BMP #### [facility] [address] [place] [address] Dr. Jag CaputoUAL DIFF REQNONormalThe [facility] HospitalComment on above: Performed By: #### LIPID, BMP #### [facility] [address] [place] [address] Dr. Jag Mc (RBC) [Entitic mass]27.5 sbJjctlz03.7-34.0The [facility] HospitalComment on above:Performed By: #### LIPID, BMP #### [facility] [address] [place], [place] [address] Dr. Jag Lujan (RBC) [Mass/Vol]31.2 g/vAPtmrqo23.9-35.2The [facility] HospitalComment on above:Performed By: #### LIPID, BMP #### [facility] [address] [place] [address] Dr. Jag LujanV (RBC) [Entitic vol]88.2 oBIiigwh75.0-99.0The [facility] HospitalComment on above:Performed By: #### LIPID, BMP #### [facility] [address] [place] [address] Dr. Jag Meléndez #0.3 103/ulNormal0.3-0.8The [facility] HospitalComment on above:Performed By: #### LIPID, BMP #### [facility] [address] [place] [address] Dr. Jag Ayonocytes/100 WBC (Bld)6.5 %Normal1.7-12.0The [facility] Comment on above:Performed By: #### LIPID, BMP #### [facility] [address] [place] [address] #2.5 103/ulNormal1.4-6.5The [facility] HospitalComment on above:Performed By: #### LIPID, BMP #### [facility] [address] [place] [address] Dr. Jag Trejoutrophils/100 WBC (Bld)51.2 %Wcmyax04.0-75.0The [facility] HospitalComment on above:Performed By: #### LIPID, BMP #### [facility] [address] [place] [address] Dr. Jag Cooneylet mean volume (Bld) [Entitic vol]10.5 fLNormal9.5-13.5The [facility] HospitalComment on above:Performed By: #### LIPID, BMP #### [facility] [address] [place] [address] Dr. Jag WaldropPLT272 103/nuTdntqt744-669Iyk [facility] HospitalComment on above: Performed By: #### LIPID, BMP #### [facility] [address] [address] [address] Jag WaldropRBC4.22 106/ulNormal4.20-5.40The [facility] on above:Performed By: #### LIPID, BMP #### [facility] [address] [address] [address] Jag WaldropWBC4.9 103/ulNormal4.0-11.0The [facility] HospitalComment on above: Performed By: #### LIPID, BMP #### [facility] [address] [place] [address] Dr. Jag Zelaya URINE PROFILEon 13-53-4443Zxmdcfcrq Ql (U)NegativeNormal NEGATIVEOhiohealth Grant Medical CenterComment on above:Performed By: #### ERUR #### [facility] [address] [place] [address] Dr. Jag Jack (U)CLEARNormalCLEARThe [facility] HospitalComment on above: Performed By: #### ERUR #### [facility] [address] [place] [address] Dr. Jag Lemus (U)LT. YELLOWNormalYELLOWLima City Hospital on above:Performed By: #### ERUR #### [facility] [address] [place] [address] Dr. Jag WeissCATHERINE micrscopic examination will be performed if indicated. NormalThe [facility] HospitalComment on above:Performed By: #### ERUR #### [facility] [address] [place] [address] Dr. Jag WaldropGlucose Ql (U)NegativeNormalNEGATIVEOhiohealth Grant Medical CenterComment on above:Performed By: #### ERUR #### [facility] [address] [place] [address] Dr. Jag WaldropHemoglobin Ql (U)NegativeNormalNEGATIVECleveland Clinic Children'S [facility] For [facility] on above:Performed By: #### ERUR #### [facility] [address] [place] [address] Dr. Jag Brown Ql (U)NegativeNormalNEGATIVEThe [facility] HospitalComment on above:Performed By: #### ERUR #### [facility] [address] [place] [address] Dr. Jag CarbajalOCYTESNegativeNormalNEGATIVEThe [facility] HospitalComment on above:Performed By: #### ERUR #### [facility] [address] [place] [address] Dr. Jag Pollacktrbetsy Ql (U)NegativeNormalNEGATIVEThe [facility] HospitalComment on above:Performed By: #### ERUR #### [facility] [address] [place] [address] Dr. Jag WaldroppH (U)7.0 [pH]Normal5-9The [facility] HospitalComment on above: Performed By: #### ERUR #### [facility] [address] [place] [address] Dr. Jag WaldropSPEC GRAVITY1.111Bsfmtj3.005-<=1.025The [facility] HospitalComment on above:Performed By: #### ERUR #### [facility] [address] [place] [address] Dr. Jag Murillo PROTEINNegativeNormalNEGATIVE/ TRACEThe [facility] on above:Performed By: #### ERUR #### [facility] [address] [place] [address] Dr. Jag Mathis MICRO INDNOT INDICATEDNormalThe [facility] HospitalComment on above:Performed By: #### ERUR #### [facility] [address] [place] [address] Dr. Jag WaldropUrobilinogen Qn (U)0.2 {Chris'U}/dLNormal0.2 - 1.0The [facility] HospitalComment on above:Performed By: #### ERUR #### [facility] [address] [place] [address] Dr. Jag StaffordF 14(COMP METB)on 06-76-5887Rvqlslq [Mass/Vol]3.9 g/dLNormal 3.4-5.0The [facility] HospitalComment on above:Performed By: #### LIPID, BMP #### [facility] [address] [address] [address] Jag WaldropAlbumin/Globulin [Mass ratio]1.2 {ratio}NormalThe [facility] HospitalComment on above:Performed By: #### LIPID, BMP #### [facility] [address] [address] [address] Jag Jalloh [Catalytic activity/Vol]95 U/RUswark36-646Qwx [facility] HospitalComment on above:Performed By: #### LIPID, BMP #### [facility] [address] [address] [address] Jag Robertson [Catalytic activity/Vol]31 U/HTvafyu28-58Lwp [facility] HospitalComment on above:Performed By: #### LIPID, BMP #### [facility] [address] [place] [address] Dr. Jag Otrega gap [Moles/Vol]12.7 mmol/LNormalThe [facility] Comment on above:Performed By: #### LIPID, BMP #### [facility] [address] [place] [address] Dr. Jag Fonseca [Catalytic activity/Vol]34 U/SHktbjx23-52Pfb [facility] Centerment on above:Performed By: #### LIPID, BMP #### [facility] [address] [address] [address] Jag WaldropBilirubin [Mass/Vol]0.4 mg/dLNormal0.2-1.0The [facility] Comment on above:Performed By: #### LIPID, BMP #### [facility] [address] [address] [address] Jag WaldropCalcium [Mass/Vol]9.1 mg/dLNormal8.5-10.1The [facility] Comment on above:Performed By: #### LIPID, BMP #### [facility] [address] [address] [address] Jag WaldropChloride [Moles/Vol]107 mmol/KTrtezb28-672Bau [facility] Comment on above:Performed By: #### LIPID, BMP #### [facility] [address] [place] [address] Dr. Jag WaldropCO2 [Moles/Vol]28.1 mmol/VEsnore77.0-32.0The [facility] Comment on above:Performed By: #### LIPID, BMP #### [facility] [address] [place] [address] Dr. Jag WaldropCreatinine [Mass/Vol]1.18 mg/dLCritically high0.55-1.02The [facility] HospitalComment on above:Performed By: #### LIPID, BMP #### [facility] [address] [place] [address] Dr. Jag HartGFR-AF ZZVTTVTG75 mL/min/1.47l8Wrmfbxlcdv low>=60The [facility] HospitalComment on above:Performed By: #### LIPID, BMP #### [facility] [address] [place] [address] Dr. Jag HartGFR-NON AF WMJPAAQK11 mL/min/1.15k9Kdcezvhcxi low>=60The [facility] HospitalComment on above:Performed By: #### LIPID, BMP #### [facility] [address] [place] [address] Dr. Jag WaldropGlobulin (S) [Mass/Vol]3.3 g/dLNormalThe [facility] HospitalComment on above:Performed By: #### LIPID, BMP #### [facility] [address] [place] [address] Dr. Jag WaldropGlucose [Mass/Vol]111 mg/dLCritically iiva24-684Sij [facility] HospitalComment on above:Performed By: #### LIPID, BMP #### [facility] [address] [place] [address] Dr. Jag WaldropPotassium [Moles/Vol]3.8 mmol/LNormal3.5-5.1The [facility] Comment on above:Performed By: #### LIPID, BMP #### [facility] [address] [place] [address] Dr. Jag WaldropProtein [Mass/Vol]7.2 g/dLNormal6.4-8.2[facility] Comment on above:Performed By: #### LIPID, BMP #### [facility] [address] [place] [address] Dr. Jag WaldropSodium [Moles/Vol]144 mmol/WDrdqcn541-156Jkq [facility] Comment on above:Performed By: #### LIPID, BMP #### [facility] [address] [place] [address] Dr. Jag Roche nitrogen [Mass/Vol]19.0 mg/dLCritically high7.0-18.0[facility] CenterComment on above:Performed By: #### LIPID, BMP #### [facility] [address] [place] [address] Dr. Jag Roche nitrogen/Creatinine [Mass ratio]16.1 mg/mgNoOur Lady of Mercy HospitalComment on above:Performed By: #### LIPID, BMP #### [facility] [address] [place] [address] Dr. Jag WaldropPROTIMEon 49-22-4754MEQ Coag (PPP) [Relative time]{INR}NormalThe [facility] HospitalComment on above:Performed By: #### PT #### [facility] [address] [place] [address] Dr. Jag Sampson GUIDELINESSEE BELOWKettering Health SpringfieldComment on above:Result Comment: DESIRED INR: 2.0 - 3.0 CONDITIONS NOT LISTED BELOW 2.5 - 3.5 FOR PROSTHETIC HEART VALVE REPLACEMENT 2.5 - 3.5 RECURRENT THROMBOSIS Performed By: #### PT #### [facility] [address] [place] [address] Dr. Jag WaldropPT Coag (PPP) [Time]9.7 sNormal9.0-11.6The [facility] Comment on above:Performed By: #### PT #### [facility] [address] [place] [address] Dr. Jag Valerio, HIGH SENSITIVITYon 04-46-0049MOFWDU51.8 pg/mLNormal 4.0-51.3The [facility] on above:Result Comment: CUT-OFF POINTS HAVE BEEN ESTABLISHED BASED ON THE FOURTH UNIVERSAL DEFINITIONS OF MYOCARDIAL INFARCTION. THE UPPER REFERENCE LIMIT (URL) OF TROPONIN, DEFINED THE 99TH PERCENTILE OF cTnI DISTRIBUTION IN A REFERENCE POPULATION, HAS BEEN CONFIRMED THE DECISION THRESHOLD FOR [place] DIAGNOSIS.Performed By: #### LIPID, BMP #### [facility] [address] [place] [address] Dr. Jag WaldropXR CHEST 2 Von 07-47-2848IV CHEST 2 VXR CHEST 2 V COMPARISON: None. CLINICAL HISTORY: PLEURODYNIA TECHNIQUE: 2 views FINDINGS: The cardiac silhouette is enlarged, stable. The pulmonary vascular pattern is normal. The lungs are clear and the pleural margins are sharp. There are no significant skeletal abnormalities. IMPRESSION: CARDIOMEGALY. NO ACUTE RADIOGRAPHIC FINDINGS. Electronically authenticated by: WAN JENKINS Date: 2022-09-07 16:47[facility] Health SpringfieldGLYCOHEMOGLOBIN A1Con [id number] RECOMMENDATIONSEE BELOW NormalLima City Hospital on above:Result Comment: ADA RECOMMENDED LIMIT 4.0 - 6.0 ADA THERAPEUTIC TARGET < 7.0 ACTION SUGGESTED > 7.0Performed By: #### LIPID, BMP #### [facility] [address] [place] [address] Dr. Jag WaldropGlucose [Mass/Vol]120 mg/dLNoOhioHealth Berger Hospital on above:Performed By: #### LIPID, BMP #### [facility] [address] [place] [address] Dr. Jag WaldropHbA1c (Bld) [Mass fraction]5.8 %Normal4.5-6.2The [facility] HospitalComment on above:Performed By: #### LIPID, BMP #### [facility] [address] [place] [address] Dr. Jag WaldropPROF CHEM 8 (BAS METB)on 48-45-3928Iszel gap [Moles/Vol]13.2 mmol/LNormalThe [facility] on above:Performed By: #### BMP #### [facility] [address] [address] [address] Jag WaldropCalcium [Mass/Vol]9.0 mg/dLNormal8.5-10.1The [facility] Comment on above:Performed By: #### BMP #### [facility] [address] [address] [address] Jag WaldropChloride [Moles/Vol]107 mmol/NIcemwk34-835Qry [facility] Comment on above:Performed By: #### BMP #### [facility] [address] [address] [address] Jag WaldropCO2 [Moles/Vol]26.3 mmol/BDvfvjn75.0-32.0The [facility] Comment on above:Performed By: #### BMP #### [facility] [address] [address] [address] Jag WaldropCreatinine [Mass/Vol]1.03 mg/dLCritically high0.55-1.02The [facility] HospitalComment on above:Performed By: #### BMP #### [facility] [address] [address] [address] Rm ChangEGFR-AF STATELESS>60Normal>=60[facility] CenterComment on above:Performed By: #### BMP #### [facility] [address] [address] [address] Jag HartGFR-NON AF GFJULHTG77 mL/min/1.08j7Nuimusrvgr low>=60The [facility] HospitalComment on above:Performed By: #### BMP #### [facility] [address] [address] [address] Jag WaldropGlucose [Mass/Vol]149 mg/dLCritically qspi57-589Lzq [facility] HospitalComment on above:Performed By: #### BMP #### [facility] [address] [address] [address] Jag WaldropPotassium [Moles/Vol]4.5 mmol/LNormal3.5-5.1The [facility] Comment on above:Performed By: #### BMP #### [facility] [address] [address] [address] Jag WaldropSodium [Moles/Vol]142 mmol/KLtagih952-098Pdl [facility] Comment on above:Performed By: #### BMP #### [facility] [address] [address] [address] Jag Roche nitrogen [Mass/Vol]22.0 mg/dLCritically high7.0-18.0The [facility] HospitalComment on above:Performed By: #### BMP #### [facility] [address] [address] [address] Jag Roche nitrogen/Creatinine [Mass ratio]21.4 mg/mgNormalThe [facility] HospitalComment on above:Performed By: #### BMP #### [facility] [address] [address] [address] Jag WaldropCT ABD/PELVIS WO CONon [id number] ABD/PELVIS WO CONEXAMINATION: CT ABD/PELVIS WO CON, [...] Electronically authenticated by: NATHAN COLE Date: 2022-05-29 22:50Norm[address] [address]ale [facility] HospitalUS KVNG DOP LEG RTon [id number] KVNG DOP LEG RTEXAM: [place] KVNG DOP [...] Electronically authenticated by: LUZ COELLO Date: 2022-05-29 22:42NormLancaster Municipal HospitalCB AUTO DIFFon [id number] #0.1 103/ulNormal0.0-0.1[facility] Grant Medical CenterComment on above:Performed By: #### LIPID, BMP #### [facility] [address] [address] [address] Jag Schulzsophils/100 WBC (Bld)0.7 %Normal0.2-2.0[facility] Comment on above:Performed By: #### LIPID, BMP #### [facility] [address] [address] [address] Jag Aguero #0.1 103/ulNormal0.0-0.7The [facility] HospitalComment on above: Performed By: #### LIPID, BMP #### [facility] [address] [address] [address] Jag Hartosinophils/100 WBC (Bld)1.5 %Normal0.9-7.0[facility] Comment on above:Performed By: #### LIPID, BMP #### [facility] [address] [place] [address] Dr. Jag Schulzthrocyte distribution width (RBC) [Ratio]13.9 %Cbevgu12.0-15.0 [facility] System[facility] on above:Performed By: #### LIPID, BMP #### [facility] [address] [place] [address] Dr. Jag WaldropHematocrit (Bld) [Volume fraction]34.2 %Critically low36.0-48.0 The [facility] HospitalComment on above:Performed By: #### LIPID, BMP #### [facility] [address] [place] [address] Dr. Jag WaldropHemoglobin (Bld) [Mass/Vol]10.9 g/dLCritically low12.0-16.0The [facility] HospitalComment on above:Performed By: #### LIPID, BMP #### [facility] [address] [place] [address] Dr. Jag Del Real #0.02 10e3/ulNormal0.00-0.03The [facility] HospitalComment on above:Performed By: #### LIPID, BMP #### [facility] [address] [place] [address] Dr. Jag Del Real %0.2 %Normal0.0-0.5The [facility] HospitalComment on above: Performed By: #### LIPID, BMP #### [facility] [address] [place] [address] Dr. Jag Boo #2.5 103/ulNormal1.2-3.8The [facility] HospitalComment on above:Performed By: #### LIPID, BMP #### [facility] [address] [place] [address] Dr. Jag Castlehocytes/100 WBC (Bld)30.4 %Akseeq19.5-60.0[facility] Grant Medical CenterComment on above:Performed By: #### LIPID, BMP #### [facility] [address] [place] [address] Dr. Jag Cummings DIFF REQNONormalThe [facility] HospitalComment on above: Performed By: #### LIPID, BMP #### [facility] [address] [place] [address] Dr. Jag Lujan (RBC) [Entitic mass]27.1 vnAhydim86.7-34.0The [facility] HospitalComment on above:Performed By: #### LIPID, BMP #### [facility] [address] [place] [address] Dr. Jag Lujan (RBC) [Mass/Vol]31.9 g/aRZclskz27.9-35.2The [facility] HospitalComment on above:Performed By: #### LIPID, BMP #### [facility] [address] [place] [address] Dr. Jag Lujan (RBC) [Entitic vol]85.1 pSKnwrnp78.0-99.0The [facility] HospitalComment on above:Performed By: #### LIPID, BMP #### [facility] [address] [place] [address] Dr. Jag Meléndez #0.5 103/ulNormal0.3-0.8The [facility] HospitalComment on above:Performed By: #### LIPID, BMP #### [facility] [address] [place] [address] Dr. Jag Ayonocytes/100 WBC (Bld)6.7 %Normal1.7-12.0The [facility] on above:Performed By: #### LIPID, BMP #### [facility] [address] [place] [address] #4.9 103/ulNormal1.4-6.5The [facility] HospitalComment on above:Performed By: #### LIPID, BMP #### [facility] [address] [place] [address] Dr. Jag Trejoutrophils/100 WBC (Bld)60.5 %Mndhfz94.0-75.0The [facility] HospitalComment on above:Performed By: #### LIPID, BMP #### [facility] [address] [address] [address] Jag Cárdenas mean volume (Bld) [Entitic vol]10.3 fLNormal9.5-13.5The [facility] on above:Performed By: #### LIPID, BMP #### [facility] [address] [place] [address] Dr. Jag WaldropPLT256 103/xjPiykcm678-128Eom [facility] on above: Performed By: #### LIPID, BMP #### [facility] [address] [place] [address] Dr. Jag WaldropRBC4.02 106/ulCritically low4.20-5.40The [facility] on above:Performed By: #### LIPID, BMP #### [facility] [address] [place] [address] Dr. Jag WaldropWBC8.1 103/ulNormal4.0-11.0The [facility] on above: Performed By: #### LIPID, BMP #### [facility] [address] [place] [address] Dr. Jag Zelaya URINE PROFILEon [id number] Ql (U)NegativeNormal NEGATIVEThe [facility] on above:Performed By: #### LIPID, BMP #### [facility] [address] [place] [address] Dr. Jag Jack (U)CLEARNormalCLEARThe [facility] on above: Performed By: #### LIPID, BMP #### [facility] [address] [place] [address] Dr. Jag Lemus (U)YELLOWNormalYELLOWThe [facility] on above: Performed By: #### LIPID, BMP #### [facility] [address] [place] [address] Dr. Jag Elias micrscopic examination will be performed if indicated. NormalThe [facility] Centerment on above:Performed By: #### LIPID, BMP #### [facility] [address] [address] [address] Jag WaldropGlucose Ql (U)NegativeNormalNEGATIVEOhiohealth Grant Medical CenterComment on above:Performed By: #### LIPID, BMP #### [facility] [address] [address] [address] Jag WaldropHemoglobin Ql (U)NegativeNormalNEGMarietta Memorial Hospital Comment on above:Performed By: #### LIPID, BMP #### [facility] [address] [address] [address] Jag WaldropKetones Ql (U)15 mg/dlAbnormalNEGATIVEOhiohealth Grant Medical Center Comment on above:Performed By: #### LIPID, BMP #### [facility] [address] [place] [address] Dr. Jag WaldropLEUKOCYTESTRACEAbnormalNEGATIVEOhiohealth Grant Medical CenterComment on above:Performed By: #### LIPID, BMP #### [facility] [address] [place] [address] Dr. Jag WaldropNitrite Ql (U)NegativeNormalNEGATIVEOhiohealth Grant Medical CenterComment on above:Performed By: #### LIPID, BMP #### [facility] [address] [place] [address] Dr. Jag WaldroppH (U)5.5 [pH]Normal5-9Ohio[facility] Grant Medical CenterComment on above: Performed By: #### LIPID, BMP #### [facility] [address] [place] [address] Dr. Jag WaldropSPEC GRAVITY1.655Vkgflu6.005-<=1.025Ohio[facility] Grant Medical CenterComment on above:Performed By: #### LIPID, BMP #### [facility] [address] [address] [address] Jag Murillo PROTEINNegativeNormalNEGATIVE/ TRACEOhiohealth Grant Medical Center Comment on above:Performed By: #### LIPID, BMP #### [facility] [address] [place] [address] Dr. Jag Mathis MICRO INDINDICATEDNormalThHolmes County Joel Pomerene Memorial HospitalComment on above: Performed By: #### LIPID, BMP #### [facility] [address] [place] [address] Dr. Jag WaldropUrobilinogen Qn (U)0.2 {Chris'U}/dLNormal0.2 - 1.0The [facility] HospitalComment on above:Performed By: #### LIPID, BMP #### [facility] [address] [place] [address] Dr. Jag WaldropPROF CHEM 8 (BAS METB)on [id number] gap [Moles/Vol]14.2 mmol/LNormalThe [facility] HospitalComment on above:Performed By: #### BMP #### [facility] [address] [place] [address] Dr. Jag WaldropCalcium [Mass/Vol]9.1 mg/dLNormal8.5-10.1The [facility] on above:Performed By: #### BMP #### [facility] [address] [place] [address] Dr. Jag WaldropChloride [Moles/Vol]106 mmol/UNsjsob63-141Bum [facility] on above:Performed By: #### BMP #### [facility] [address] [place] [address] Dr. Jag WaldropCO2 [Moles/Vol]23.5 mmol/PNyabml02.0-32.0[facility] Comment on above:Performed By: #### BMP #### [facility] [address] [place] [address] Dr. Jag WaldropCreatinine [Mass/Vol]1.29 mg/dLCritically high0.55-1.02The [facility] HospitalComment on above:Performed By: #### BMP #### [facility] [address] [place] [address] Dr. Jag HartGFR-AF FSTDSMVV35 mL/min/1.24u8Juazpthvom low>=60The [facility] HospitalComment on above:Performed By: #### BMP #### [facility] [address] [place] [address] Dr. Yilan ChangEGFR-NON AF RTSYBJCW65 mL/min/1.89l9Ojfdwhdjxt low>=60The [facility] HospitalComment on above:Performed By: #### BMP #### [facility] [address] [address] [address] Jag WaldropGlucose [Mass/Vol]93 mg/uXItkodl92-647ArnOhiohealth Grant Medical Center Comment on above:Performed By: #### BMP #### [facility] [address] [address] [address] Jag WaldropPotassium [Moles/Vol]3.7 mmol/LNormal3.5-5.1The [facility] on above:Performed By: #### BMP #### [facility] [address] [address] [address] Jag Conraddium [Moles/Vol]140 mmol/UVjgrwx188-781Qkl [facility] Comment on above:Performed By: #### BMP #### [facility] [address] [address] [address] Jag WaldropUrea nitrogen [Mass/Vol]24.0 mg/dLCritically high7.0-18.0The [facility] HospitalComment on above:Performed By: #### BMP #### [facility] [address] [place] [address] Dr. Jag Roche nitrogen/Creatinine [Mass ratio]18.6 mg/mgNoOur Lady of Mercy HospitalComformerly [facility] on above:Performed By: #### BMP #### [facility] [address] [address] [address] Jag Baez MICROSCOPIC ONLYon [id number]Q SEEN [facility] CenterComment on above:Performed By: #### LIPID, BMP #### [facility] [address] [address] [address] Jag Cardona identified Cx Nom (U)NOT INDICATEDNoOur Lady of Mercy HospitalComment on above:Performed By: #### LIPID, BMP #### [facility] [address] [address] [address] Jag Adkins SEENNormalNONE SEENLima City Hospital on above:Performed By: #### LIPID, BMP #### [facility] [address] [address] [address] Jag Weathers LM Nom (Urine sed)NONE SEENNormalNONE SEENOhiohealth Grant Medical CenterComformerly [facility] on above:Performed By: #### LIPID, BMP #### [facility] [address] [address] [address] Rm ChangEpithelial cells LM Ql (Urine sed)RARENormalNONE SEEN /RAREThe [facility] HospitalComformerly [facility] on above:Performed By: #### LIPID, BMP #### [facility] [address] [address] [address] Jag AlexanderCONONE SEENNormalNONE SEENLima City Hospital on above:Performed By: #### LIPID, BMP #### [facility] [address] [address] [address] Jag WaldropUjektJEY9-25Axpsjrnd9-1OiiLima City Hospital on above:Performed By: #### LIPID, BMP #### [facility] [address] [address] [address] Jag WaldropWBC0-2AbnormalNONE SEENLima City Hospital on above: Performed By: #### LIPID, BMP #### [facility] [address] [address] [address] 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 LOCATION: [facility] BREAST COMPOSITION: Scattered areas fibroglandular density. [...] by: Kathy Lobato M.D. on 03/29/2022 at 15:31[facility] W CONon [id number] [facility] WO W CONEXAMINATION: MRI [facility] CON HISTORY: Spinal stenosis ; chronic right [...] Electronically authenticated by: KATHY LOBATO Date: 2022-03-23 11:26[facility]MRI [facility] CONon [id number] TSPINE WO W CONEXAMINATION: MRI TSPINE WO [...] Electronically authenticated by: KATHY LOBATO Date: 2022-03-23 12:50[facility] SpringfieldPROF CHEM 8 (BAS METB)on [id number] gap [Moles/Vol]11.8 mmol/LNormalOhiohealth Grant Medical CenterComment on above:Performed By: #### POCGLUC #### [facility] [address] [place] [address] Dr. Jag WaldropCalcium [Mass/Vol]9.0 mg/dLNormal8.5-10.1[facility] Comment on above:Performed By: #### POCGLUC #### [facility] [address] [address] [address] Jag WaldropChloride [Moles/Vol]107 mmol/MWtolqt79-494JmfOhiohealth Grant Medical Center Comment on above:Performed By: #### POCGLUC #### [facility] [address] [address] [address] Jag WaldropCO2 [Moles/Vol]30.2 mmol/OYzebly61.0-32.0The [facility] Comment on above:Performed By: #### POCGLUC #### [facility] [address] [address] [address] Jag WaldropCreatinine [Mass/Vol]1.32 mg/dLCritically high0.55-1.02The [facility] HospitalComment on above:Performed By: #### POCGLUC #### [facility] [address] [address] [address] Rm ChangEGFR-AF BNNKZMPD88 mL/min/1.23u0Lcfffhoopr low>=60The [facility] HospitalComment on above:Performed By: #### POCGLUC #### [facility] [address] [place] [address] Dr. Jag HartGFR-NON AF LXOJGNMT16 mL/min/1.29y5Xtsmudieuk low>=60The [facility] HospitalComment on above:Performed By: #### POCGLUC #### [facility] [address] [place] [address] Dr. Jag WaldropGlucose [Mass/Vol]117 mg/dLCritically jwvl89-282Ovd [facility] HospitalComment on above:Performed By: #### POCGLUC #### [facility] [address] [place] [address] Dr. Jag WaldropPotassium [Moles/Vol]4.0 mmol/LNormal3.5-5.1The [facility] Comment on above:Performed By: #### POCGLUC #### [facility] [address] [address] [address] Jag WaldropSodium [Moles/Vol]145 mmol/ZTjgluf707-391Vhn [facility] Comment on above:Performed By: #### POCGLUC #### [facility] [address] [address] [address] Jag WaldropUrea nitrogen [Mass/Vol]23.0 mg/dLCritically high7.0-18.0The [facility] HospitalComment on above:Performed By: #### POCGLUC #### [facility] [address] [place] [address] Dr. Jag WaldropUrea nitrogen/Creatinine [Mass ratio]17.4 mg/mgNoalThHolmes County Joel Pomerene Memorial HospitalComment on above:Performed By: #### POCGLUC #### [facility] [address] [place] [address] Dr. Jag Burris AUTO DIFFon [id number] #0.1 103/ulNormal0.0-0.1The [facility] HospitalComment on above:Performed By: #### POCGLUC #### [facility] [address] [place] [address] Dr. Jag WaldropBasophils/100 WBC (Bld)1.0 %Normal0.2-2.0[facility] Comment on above:Performed By: #### POCGLUC #### [facility] [address] [place] [address] Dr. Jag HartO #0.1 103/ulNormal0.0-0.7The [facility] HospitalComment on above: Performed By: #### POCGLUC #### [facility] [address] [place] [address] Dr. Jag Hartosinophils/100 WBC (Bld)1.9 %Normal0.9-7.0The [facility] Comment on above:Performed By: #### POCGLUC #### [facility] [address] [place] [address] Dr. Jag Hartrythrocyte distribution width (RBC) [Ratio]13.2 %Qlparr90.0-15.0 The [facility] HospitalComment on above:Performed By: #### POCGLUC #### [facility] [address] [place] [address] Dr. Jag WaldropHematocrit (Bld) [Volume fraction]36.7 %Fvsdjy16.0-48.0The [facility] HospitalComment on above:Performed By: #### POCGLUC #### [facility] [address] [place] [address] Dr. Jag WaldropHemoglobin (Bld) [Mass/Vol]11.4 g/dLCritically low12.0-16.0The [facility] HospitalComment on above:Performed By: #### POCGLUC #### [facility] [address] [address] [address] Jag Del Real #0.03 10e3/ulNormal0.00-0.03The [facility] HospitalComformerly [facility] on above:Performed By: #### POCGLUC #### [facility] Laboratory [address] [address] [address] Jag Del Real %0.5 %Normal0.0-0.5The [facility] HospitalComment on above: Performed By: #### POCGLUC #### [facility] [address] [place] [address] Dr. Jag Boo #2.1 103/ulNormal1.2-3.8The [facility] HospitalComment on above:Performed By: #### POCGLUC #### [facility] [address] [place] [address] Dr. Jag Castlehocytes/100 WBC (Bld)34.1 %Obmwwl30.5-60.0The [facility] HospitalComformerly [facility] on above:Performed By: #### POCGLUC #### [facility] [address] [place] [address] Dr. Jag Cummings DIFF REQNONormalThe [facility] HospitalComment on above: Performed By: #### POCGLUC #### [facility] [address] [place] [address] Dr. Jag Mc (RBC) [Entitic mass]28.4 tpMavquf25.7-34.0The [facility] HospitalComment on above:Performed By: #### POCGLUC #### [facility] [address] [place] [address] Dr. Jag Lujan (RBC) [Mass/Vol]31.1 g/hBIlpkpz37.9-35.2The [facility] HospitalComment on above:Performed By: #### POCGLUC #### [facility] [address] [place] [address] Dr. Jag Lujan (RBC) [Entitic vol]91.5 uNVzakxv25.0-99.0The [facility] HospitalComment on above:Performed By: #### POCGLUC #### [facility] [address] [place] [address] Dr. Jag Meléndez #0.5 103/ulNormal0.3-0.8The [facility] HospitalComment on above:Performed By: #### POCGLUC #### [facility] [address] [place] [address] Dr. Jag Ayonocytes/100 WBC (Bld)8.4 %Normal1.7-12.0The [facility] Comment on above:Performed By: #### POCGLUC #### [facility] [address] [place] [address] #3.3 103/ulNormal1.4-6.5The [facility] HospitalComment on above:Performed By: #### POCGLUC #### [facility] [address] [place] [address] Dr. Jag Trejoutrophils/100 WBC (Bld)54.1 %Dcvhio96.0-75.0The [facility] HospitalComment on above:Performed By: #### POCGLUC #### [facility] [address] [place] [address] Dr. Jag Cárdenas mean volume (Bld) [Entitic vol]10.6 fLNormal9.5-13.5The [facility] HospitalComment on above:Performed By: #### POCGLUC #### [facility] [address] [place] [address] Dr. Jag WaldropPLT294 103/pyYeiffx597-490Pgq [facility] HospitalComment on above: Performed By: #### POCGLUC #### [facility] [address] [place] [address] Dr. Jag WaldropRBC4.01 106/ulCritically low4.20-5.40The [facility] HospitalComment on above:Performed By: #### POCGLUC #### [facility] [address] [place] [address] Dr. Jag WaldropWBC6.2 103/ulNormal4.0-11.0The [facility] HospitalComment on above: Performed By: #### POCGLUC #### [facility] [address] [place] [address] Dr. Jag Bass 50-60-2653ZCV [Mass/Vol]mg/LNormal<=1.0The [facility] HospitalComment on above:Performed By: #### ERUR #### [facility] [address] [address] [address] Jag WaldropCT TSPINE WO CONon [id number] TSPINE WO CONEXAMINATION: CT TSPINE WO CON, [...] authenticated by: ALEX AVINA Date: 2022-02-19 19:25NormalThe [facility] URINE PROFILEon [id number] Ql (U)NegativeNormal NEGATIVEThe [facility] HospitalComment on above:Performed By: #### POCGLUC #### [facility] [address] [place] [address] Dr. Jag WaldropClarity (U)CLEARNormalCLEARThe [facility] HospitalComment on above: Performed By: #### POCGLUC #### [facility] [address] [address] [address] Jag Alejandrelor (U)LT. YELLOWNormalYELLOWOhiohealth Grant Medical CenterComment on above:Performed By: #### POCGLUC #### [facility] [address] [address] [address] Jag Elias micrscopic examination will be performed if indicated. NormalFostoria City Hospital HospitalComment on above:Performed By: #### POCGLUC #### [facility] [address] [address] [address] Jag Rasmussenose Ql (U)NegativeNormalNEGATIVEOhiohealth Grant Medical CenterComment on above:Performed By: #### POCGLUC #### [facility] [address] [place] [address] Dr. Jag WaldropHemoglobin Ql (U)NegativeNormalNEGATIVEOhiohealth Grant Medical Center Comment on above:Performed By: #### POCGLUC #### [facility] [address] [place] [address] Dr. Jag Reidones Ql (U)NegativeNormalNEGATIVEOhiohealth Grant Medical CenterComment on above:Performed By: #### POCGLUC #### [facility] [address] [place] [address] Dr. Jag WaldropLEUKOCYTESNegativeNormalNEGATIVEOhiohealth Grant Medical CenterComment on above:Performed By: #### POCGLUC #### [facility] [address] [place] [address] Dr. Jag WaldropNitrite Ql (U)NegativeNormalNEGATIVEOhiohealth Grant Medical CenterComment on above:Performed By: #### POCGLUC #### [facility] [address] [address] [address] Jag WaldroppH (U)5.5 [pH]Normal5-9Ohio[facility] Grant Medical CenterComment on above: Performed By: #### POCGLUC #### [facility] [address] [place] [address] Dr. Jag WaldropSPEC GRAVITY1.581Tpidvo5.005-<=1.025Ohio[facility] Grant Medical CenterComment on above:Performed By: #### POCGLUC #### [facility] [address] [address] [address] Jag Murillo PROTEINNegativeNormalNEGATIVE/ TRACEThe [facility] Comment on above:Performed By: #### POCGLUC #### [facility] [address] [place] [address] Dr. Jag Mathis MICRO INDNOT INDICATEDNormalThe [facility] HospitalComment on above:Performed By: #### POCGLUC #### [facility] [address] [address] [address] Jag Hamptonbilinogen Qn (U)0.2 {Chris'U}/dLNormal0.2 - 1.0The [facility] HospitalComment on above:Performed By: #### POCGLUC #### [facility] [address] [place] [address] Dr. Jag WaldropPROF CHEM 8 (BAS METB)on [id number] gap [Moles/Vol]10.8 mmol/LNormalOhiohealth Grant Medical CenterComment on above:Performed By: #### ERUR #### [facility] [address] [place] [address] Dr. Jag WaldropCalcium [Mass/Vol]9.0 mg/dLNormal8.5-10.1[facility] Comment on above:Performed By: #### ERUR #### [facility] [address] [place] [address] Dr. Jag WaldropChloride [Moles/Vol]106 mmol/YOjruaa55-832Zem [facility] Comment on above:Performed By: #### ERUR #### [facility] [address] [place] [address] Dr. Jag WaldropCO2 [Moles/Vol]28.1 mmol/DAsjbzr97.0-32.0The [facility] Comment on above:Performed By: #### ERUR #### [facility] [address] [place] [address] Dr. Jag WaldropCreatinine [Mass/Vol]1.06 mg/dLCritically high0.55-1.02The [facility] HospitalComment on above:Performed By: #### ERUR #### [facility] [address] [address] [address] Jag HartGFR-AF STATELESS>60Normal>=60The [facility] HospitalComment on above:Performed By: #### ERUR #### [facility] [address] [address] [address] Jag HartGFR-NON AF FVXTADFM48 mL/min/1.19c4Focfohuttx low>=60The [facility] HospitalComment on above:Performed By: #### ERUR #### [facility] [address] [address] [address] Jag WaldropGlucose [Mass/Vol]89 mg/rREmrlkp39-837Zmc [facility] Comment on above:Performed By: #### ERUR #### [facility] [address] [address] [address] Jag WaldropPotassium [Moles/Vol]3.9 mmol/LNormal3.5-5.1[facility] Comment on above:Performed By: #### ERUR #### [facility] [address] [address] [address] Jag WaldropSodium [Moles/Vol]141 mmol/QKsviad521-437UfpOhiohealth Grant Medical Center Comment on above:Performed By: #### ERUR #### [facility] [address] [address] [address] Jag WaldropUrea nitrogen [Mass/Vol]19.0 mg/dLCritically high7.0-18.0The [facility] HospitalComformerly [facility] on above:Performed By: #### ERUR #### [facility] [address] [address] [address] Jag WaldropUrea nitrogen/Creatinine [Mass ratio]17.9 mg/mgNormalThe [facility] HospitalComformerly [facility] on above:Performed By: #### ERUR #### [facility] [address] [address] [address] Jag Bangura RATE WESTERGRENon 34-63-1579NAK RATE19 mm/hrNormal<=30The [facility] HospitalComment on above:Performed By: #### LIPID, BMP #### [facility] [address] [place] [address] Dr. Jag StaffordF CHEM 8 (BAS METB)on [id number] gap [Moles/Vol]17.3 mmol/LNormalThe [facility] HospitalComment on above:Performed By: #### LIPID, BMP #### [facility] [address] [place] [address] Dr. Jag WaldropCalcium [Mass/Vol]9.2 mg/dLNormal8.5-10.1The [facility] Comment on above:Performed By: #### LIPID, BMP #### [facility] [address] [place] [address] Dr. Jag WaldropChloride [Moles/Vol]108 mmol/LCritically sund54-676Vyu [facility] HospitalComment on above:Performed By: #### LIPID, BMP #### [facility] [address] [place] [address] Dr. Jag WaldropCO2 [Moles/Vol]20.0 mmol/LCritically low21.0-32.0The [facility] HospitalComment on above:Performed By: #### LIPID, BMP #### [facility] [address] [place] [address] Dr. Jag WaldropCreatinine [Mass/Vol]1.40 mg/dLCritically high0.55-1.02The [facility] HospitalComment on above:Performed By: #### LIPID, BMP #### [facility] [address] [place] [address] Dr. Jag HartGFR-AF NKVDZNOX58 mL/min/1.41z3Ypbpuoribq low>=60The [facility] HospitalComment on above:Performed By: #### LIPID, BMP #### [facility] [address] [place] [address] Dr. Jag HartGFR-NON AF GZHNJXTT65 mL/min/1.61f0Pzlqfizzcn low>=60The [facility] HospitalComment on above:Performed By: #### LIPID, BMP #### [facility] [address] [address] [address] Jag WaldropGlucose [Mass/Vol]126 mg/dLCritically hgit65-140Xij [facility] HospitalComment on above:Performed By: #### LIPID, BMP #### [facility] [address] [place] [address] Dr. Jag WaldropPotassium [Moles/Vol]5.3 mmol/LCritically high3.5-5.1The [facility] HospitalComment on above:Performed By: #### LIPID, BMP #### [facility] [address] [place] [address] Dr. Jag WaldropSodium [Moles/Vol]140 mmol/MXhkpsc631-952Rcq [facility] Comment on above:Performed By: #### LIPID, BMP #### [facility] [address] [place] [address] Dr. Jag WaldropUrea nitrogen [Mass/Vol]31.0 mg/dLCritically high7.0-18.0The [facility] HospitalComment on above:Performed By: #### LIPID, BMP #### [facility] [address] [place] [address] Dr. Jag Roche nitrogen/Creatinine [Mass ratio]22.1 mg/mgNormalThe [facility] HospitalComformerly [facility] on above:Performed By: #### LIPID, BMP #### [facility] [address] [place] [address] Dr. Jag Burris AUTO DIFFon [id number] #0.1 103/ulNormal0.0-0.1The [facility] HospitalComment on above:Performed By: #### CBC #### [facility] [address] [place] [address] Dr. Jag WaldropBasophils/100 WBC (Bld)1.0 %Normal0.2-2.0The [facility] Comment on above:Performed By: #### CBC #### [facility] [address] [place] [address] Dr. Rm ChangEO #0.2 103/ulNormal0.0-0.7The [facility] HospitalComment on above: Performed By: #### CBC #### [facility] [address] [place] [address] Dr. Jag Hartosinophils/100 WBC (Bld)3.3 %Normal0.9-7.0The [facility] Comment on above:Performed By: #### CBC #### [facility] [address] [place] [address] Dr. Jag Hartrythrocyte distribution width (RBC) [Ratio]13.2 %Jnobrl53.0-15.0 The [facility] HospitalComment on above:Performed By: #### CBC #### [facility] [address] [place] [address] Dr. Jag WaldropHematocrit (Bld) [Volume fraction]35.6 %Critically low36.0-48.0 [facility] CenterComment on above:Performed By: #### CBC #### [facility] [address] [place] [address] Dr. Jag WaldropHemoglobin (Bld) [Mass/Vol]10.6 g/dLCritically low12.0-16.0The [facility] HospitalComment on above:Performed By: #### CBC #### [facility] [address] [place] [address] Dr. Jag Del Real #0.01 10e3/ulNormal0.00-0.03The [facility] HospitalComment on above:Performed By: #### CBC #### [facility] [address] [place] [address] Dr. Jag Del Real %0.2 %Normal0.0-0.5The [facility] Centerment on above: Performed By: #### CBC #### [facility] [address] [place] [address] Dr. Jag CastleH #1.7 103/ulNormal1.2-3.8The [facility] HospitalComment on above:Performed By: #### CBC #### [facility] [address] [place] [address] Dr. Jag Griffinmphocytes/100 WBC (Bld)35.4 %Ryyayt69.5-60.0The [facility] HospitalComment on above:Performed By: #### CBC #### [facility] [address] [place] [address] Dr. Jag Cummings DIFF REQNONormalThe [facility] HospitalComment on above: Performed By: #### CBC #### [facility] [address] [place] [address] Dr. Jag Lujan (RBC) [Entitic mass]29.0 ioPztyct20.7-34.0The [facility] HospitalComment on above:Performed By: #### CBC #### [facility] [address] [place] [address] Dr. Jag Lujan (RBC) [Mass/Vol]29.8 g/dLCritically low29.9-35.2The [facility] HospitalComment on above:Performed By: #### CBC #### [facility] [address] [place] [address] Dr. Jag Hu (RBC) [Entitic vol]97.3 sFBbeuaf70.0-99.0The [facility] HospitalComment on above:Performed By: #### CBC #### [facility] [address] [place] [address] Dr. Jag Meléndez #0.3 103/ulNormal0.3-0.8The [facility] HospitalComment on above:Performed By: #### CBC #### [facility] [address] [place] [address] Dr. Jag Ayonocytes/100 WBC (Bld)6.8 %Normal1.7-12.0The [facility] Comment on above:Performed By: #### CBC #### [facility] [address] [place] [address] #2.6 103/ulNormal1.4-6.5The [facility] HospitalComment on above:Performed By: #### CBC #### [facility] [address] [place] [address] Dr. Jag Trejoutrophils/100 WBC (Bld)53.3 %Liufki24.0-75.0The [facility] HospitalComment on above:Performed By: #### CBC #### [facility] [address] [place] [address] Dr. Jag Cárdenas mean volume (Bld) [Entitic vol]11.0 fLNormal9.5-13.5The [facility] HospitalComment on above:Performed By: #### CBC #### [facility] [address] [place] [address] Dr. Jag GonzalezT230 103/deJqiatj959-329Pvc [facility] HospitalComment on above: Performed By: #### CBC #### [facility] [address] [place] [address] Dr. Jag WaldropRBC3.66 106/ulCritically low4.20-5.40The [facility] HospitalComment on above:Performed By: #### CBC #### [facility] [address] [place] [address] Dr. Jag WaldropWBC4.8 103/ulNormal4.0-11.0The [facility] HospitalComformerly [facility] on above: Performed By: #### CBC #### [facility] [address] [place] [address] Dr. Jag WaldropFERRITINmagnolia [id number] [Mass/Vol]35.0 ng/mLNormal8.0-252.0 The [facility] HospitalComformerly [facility] on above:Performed By: #### LIPID, BMP #### [facility] [address] [place] [address] Dr. Jag Mayfield [id number] [Mass/Vol]71.0 ug/aPYxyvkz38.0-170.0The [facility] HospitalComformerly [facility] on above:Performed By: #### LIPID, BMP #### [facility] [address] [place] [address] Dr. Jag WaldropLIPID PROFILEon [id number]-HDL RATIO NORMSEE [facility] SystemComment on above:Result Comment: 3.3 - 4.4 LOW RISK 4.4 - 7.1 AVERAGE RISK 7.1 - 11.0 MODERATE RISK >11.0 HIGH RISKPerformed By: #### LIPID, BMP #### [facility] [address] [place] [address] Dr. Jag WaldropCholesterol [Mass/Vol]133 mg/dLNormal<=200[facility] Comment on above:Performed By: #### LIPID, BMP #### [facility] [address] [place] [address] Dr. Jag WaldropCholesterol in HDL [Mass/Vol]41 mg/cMNkmcxm26-38PftOhiohealth Grant Medical CenterComment on above:Performed By: #### LIPID, BMP #### [facility] [address] [place] [address] Dr. Jag WadlropCholesterol in LDL [Mass/Vol]70.8 mg/dLKettering Health SpringfieldComment on above:Performed By: #### LIPID, BMP #### [facility] [address] [place] [address] Dr. Jag Brownleeestersoham.total/Cholesterol in HDL [Mass ratio]3.2 {ratio} NormalOhiohealth Grant Medical CenterComment on above:Performed By: #### LIPID, BMP #### [facility] [address] [place] [address] Dr. Jag Banuelos NORMAL> or = 60 mg/dl - LOW CARDIOVASCULAR RISK <40 mg/dl - HIGH CARDIOVASCULAR RISKKettering Health SpringfieldComment on above:Performed By: #### LIPID, BMP #### [facility] [address] [place] [address] Dr. Jag WaldropLDL CALC NORMALSEE BELOWNoOur Lady of Mercy HospitalComment on above:Result Comment: <100 mg/dl OPTIMAL 100 - 129 mg/dl NEAR OR ABOVE OPTIMAL 130 - 159 mg/dl BORDERLINE HIGH 160 - 189 mg/dl HIGH >190 mg/dl VERY HIGH Performed By: #### LIPID, BMP #### [facility] [address] [place] [address] Dr. Jag WaldropTriglyceride [Mass/Vol]106 mg/dLNormal<=150[facility] Comment on above:Performed By: #### LIPID, BMP #### [facility] [address] [address] [address] Jag WaldropVLDL CALC21.2 mg/dLNormalThe [facility] HospitalComment on above: Performed By: #### LIPID, BMP #### [facility] [address] [address] [address] Jag WaldropPROF CHEM 8 (BAS METB)on [id number] gap [Moles/Vol]18.2 mmol/LNormalThe [facility] HospitalComment on above:Performed By: #### LIPID, BMP #### [facility] [address] [place] [address] Dr. Jag WaldropCalcium [Mass/Vol]9.3 mg/dLNormal8.5-10.1[facility] Comment on above:Performed By: #### LIPID, BMP #### [facility] [address] [place] [address] Dr. Jag WaldropChloride [Moles/Vol]111 mmol/LCritically pgyn86-288Vhb [facility] HospitalComment on above:Performed By: #### LIPID, BMP #### [facility] [address] [place] [address] Dr. Jag WaldropCO2 [Moles/Vol]19.9 mmol/LCritically low21.0-32.0The [facility] HospitalComment on above:Performed By: #### LIPID, BMP #### [facility] [address] [place] [address] Dr. Jag WaldropCreatinine [Mass/Vol]1.27 mg/dLCritically high0.55-1.02The [facility] HospitalComment on above:Performed By: #### LIPID, BMP #### [facility] [address] [place] [address] Dr. Jag HartGFR-AF QTRCSKKU54 mL/min/1.96e4Zmwbvmrfet low>=60The [facility] HospitalComment on above:Performed By: #### LIPID, BMP #### [facility] [address] [place] [address] Dr. Yilan ChangEGFR-NON AF XXIGCQCT90 mL/min/1.44g0Ihnjcdbazq low>=60The [facility] HospitalComment on above:Performed By: #### LIPID, BMP #### [facility] [address] [place] [address] Dr. Jag WaldropGlucose [Mass/Vol]129 mg/dLCritically ivyg25-282Ttp [facility] HospitalComment on above:Performed By: #### LIPID, BMP #### [facility] [address] [place] [address] Dr. Jag WaldropPotassium [Moles/Vol]6.1 mmol/LCritically high3.5-5.1The [facility] HospitalComment on above:Performed By: #### LIPID, BMP #### [facility] [address] [place] [address] Dr. Jag WaldropSodium [Moles/Vol]142 mmol/TKysrne972-345Clb [facility] Comment on above:Performed By: #### LIPID, BMP #### [facility] [address] [place] [address] Dr. Jag WaldropUrea nitrogen [Mass/Vol]35.0 mg/dLCritically high7.0-18.0The [facility] HospitalComment on above:Performed By: #### LIPID, BMP #### [facility] [address] [place] [address] Dr. Jag Roche nitrogen/Creatinine [Mass ratio]27.6 mg/mgNormalThe [facility] HospitalComment on above:Performed By: #### LIPID, BMP #### [facility] [address] [place] [address] Dr. Jag WaldropVITAMIN B12on 28-33-2881Ymjdtilpx (Vitamin B12) [Mass/Vol]267.0 pg/pJVwbhgu643.0-986.0The [facility] HospitalComment on above:Performed By: #### LIPID, BMP #### [facility] [address] [place] [address] Dr. Jag WaldropXR CSPINE 2_3 VIEWSon 51-84-9521YU CSPINE 2_3 VIEWSEXAMINATION: XR CSPINE 2_3 VIEWS [...] Electronically authenticated by: KATHY LOBATO Date: 2022-01-12 09:39[facility] SpringfieldBNPon [id number] peptide B (Bld) [Mass/Vol]283.0 pg/mLNormal<=900.0[facility] CenterComment on above:Performed By: #### POCGLUC #### [facility] [address] [place] [address] Dr. Jag Burris AUTO DIFFon [id number] #0.1 103/ulNormal0.0-0.1[facility] CenterComment on above:Performed By: #### LIPID, BMP #### [facility] [address] [place] [address] Dr. Jag Schulzsophils/100 WBC (Bld)0.8 %Normal0.2-2.0[facility] Comment on above:Performed By: #### LIPID, BMP #### [facility] [address] [place] [address] Dr. Jag Aguero #0.3 103/ulNormal0.0-0.7The [facility] HospitalComment on above: Performed By: #### LIPID, BMP #### [facility] [address] [place] [address] Dr. Jag Hartosinophils/100 WBC (Bld)3.8 %Normal0.9-7.0[facility] Comment on above:Performed By: #### LIPID, BMP #### [facility] [address] [place] [address] Dr. Jag Hartrythrocyte distribution width (RBC) [Ratio]13.2 %Mbczvq24.0-15.0 The [facility] HospitalComment on above:Performed By: #### LIPID, BMP #### [facility] [address] [place] [address] Dr. Jag WaldropHematocrit (Bld) [Volume fraction]34.8 %Critically low36.0-48.0 The [facility] HospitalComment on above:Performed By: #### LIPID, BMP #### [facility] [address] [place] [address] Dr. Jag WaldropHemoglobin (Bld) [Mass/Vol]10.6 g/dLCritically low12.0-16.0The [facility] HospitalComment on above:Performed By: #### LIPID, BMP #### [facility] [address] [place] [address] Dr. Jag Del Real #0.02 10e3/ulNormal0.00-0.03The [facility] HospitalComment on above:Performed By: #### LIPID, BMP #### [facility] [address] [place] [address] Dr. Jag Del Real %0.3 %Normal0.0-0.5The [facility] HospitalComment on above: Performed By: #### LIPID, BMP #### [facility] [address] [place] [address] Dr. Jag Boo #1.7 103/ulNormal1.2-3.8The [facility] HospitalComment on above:Performed By: #### LIPID, BMP #### [facility] [address] [place] [address] Dr. Jag Griffinmphocytes/100 WBC (Bld)23.8 %Arftwk04.5-60.0The [facility] HospitalComment on above:Performed By: #### LIPID, BMP #### [facility] [address] [place] [address] Dr. Jag CaputoUAL DIFF REQNONormalThe [facility] HospitalComment on above: Performed By: #### LIPID, BMP #### [facility] [address] [place] [address] Dr. Jag Lujan (RBC) [Entitic mass]29.1 pgVcticw58.7-34.0The [facility] HospitalComment on above:Performed By: #### LIPID, BMP #### [facility] [address] [place] [address] Dr. aJg Lujan (RBC) [Mass/Vol]30.5 g/rJFnlmwr75.9-35.2The [facility] HospitalComment on above:Performed By: #### LIPID, BMP #### [facility] [address] [place] [address] Dr. Jag Lujan (RBC) [Entitic vol]95.6 mEKtozos62.0-99.0The [facility] HospitalComment on above:Performed By: #### LIPID, BMP #### [facility] [address] [place] [address] Dr. Jag Meléndez #0.7 103/ulNormal0.3-0.8The [facility] HospitalComment on above:Performed By: #### LIPID, BMP #### [facility] [address] [place] [address] Dr. Jag Ayonocytes/100 WBC (Bld)9.3 %Normal1.7-12.0The [facility] Comment on above:Performed By: #### LIPID, BMP #### [facility] [address] [place] [address] #4.4 103/ulNormal1.4-6.5The [facility] HospitalComment on above:Performed By: #### LIPID, BMP #### [facility] [address] [place] [address] Dr. Jag Trejoutrophils/100 WBC (Bld)62.0 %Wwwima37.0-75.0The [facility] HospitalComment on above:Performed By: #### LIPID, BMP #### [facility] [address] [place] [address] Dr. Jag Cooneylet mean volume (Bld) [Entitic vol]11.5 fLNormal9.5-13.5The [facility] HospitalComment on above:Performed By: #### LIPID, BMP #### [facility] [address] [place] [address] Dr. Jag WaldropPLT235 103/ygNrypjq557-719Cys [facility] HospitalComment on above: Performed By: #### LIPID, BMP #### [facility] [address] [place] [address] Dr. Jag EspinoC3.64 106/ulCritically low4.20-5.40The [facility] HospitalComment on above:Performed By: #### LIPID, BMP #### [facility] [address] [place] [address] Dr. Jag WaldropWBC7.1 103/ulNormal4.0-11.0The [facility] HospitalComment on above: Performed By: #### LIPID, BMP #### [facility] [address] [place] [address] Dr. Jag Bass 69-18-0841HCS9.1 mg/dLCritically high<=1.0The [facility] HospitalComment on above:Performed By: #### BMP #### [facility] [address] [place] [address] Dr. Jag WaldropCovid-19 PCR ([facility]SA[facility])on 35-85-5090HUSA-CoV-2 (COVID-19) RNA PRINCE+probe Ql (Unsp spec)Not detectedNormalNOT DETECTEDThe [facility] Comment on above:Result Comment: This test is not yet approved or cleared by the [place] FDA. When there are no FDA-approved or cleared tests available, and other criteria are met, FDA can make tests available under an emergency access mechanism called an Emergency Use Authorization (EUA). The EUA for this test is supported by the [employer] of [employer] and Human Service's (HHS's) [...] with SARS-CoV-2.Performed By: #### LIPID, BMP #### [facility] [address] [place] [address] Dr. Jag WaldropPROF CHEM 8 (BAS METB)on 78-26-6457Kekry gap [Moles/Vol]13.3 mmol/LNormalThe [facility] HospitalComment on above:Performed By: #### BMP #### [facility] [address] [place] [address] Dr. Jag WaldropCalcium [Mass/Vol]8.7 mg/dLNormal8.5-10.1[facility] Comment on above:Performed By: #### BMP #### [facility] [address] [place] [address] Dr. Jag WaldropChloride [Moles/Vol]107 mmol/LXjlwks34-989VojOhiohealth [facility] Center Comment on above:Performed By: #### BMP #### [facility] [address] [place] [address] Dr. Jag WaldropCO2 [Moles/Vol]23.2 mmol/RIgtcha54.0-32.0[facility] Comment on above:Performed By: #### BMP #### [facility] [address] [place] [address] Dr. Jag WaldropCreatinine [Mass/Vol]1.55 mg/dLCritically high0.55-1.02The [facility] HospitalComment on above:Performed By: #### BMP #### [facility] [address] [place] [address] Dr. Jag HartGFR-AF YOBNAQNH90 mL/min/1.66t8Ynuswuutnb low>=60The [facility] HospitalComment on above:Performed By: #### BMP #### [facility] [address] [place] [address] Dr. Yilan ChangEGFR-NON AF ETULAQRS69 mL/min/1.59o9Hxocyunxjz low>=60The [facility] HospitalComment on above:Performed By: #### BMP #### [facility] [address] [address] [address] Jag WaldropGlucose [Mass/Vol]123 mg/dLCritically nulb45-125Gqk [facility] HospitalComment on above:Performed By: #### BMP #### [facility] [address] [address] [address] Jag WaldropPotassium [Moles/Vol]4.5 mmol/LNormal3.5-5.1[facility] Comment on above:Performed By: #### BMP #### [facility] [address] [place] [address] Dr. Jag WaldropSodium [Moles/Vol]139 mmol/ROteprc782-970Gye [facility] Comment on above:Performed By: #### BMP #### [facility] [address] [address] [address] Jag WaldropUrea nitrogen [Mass/Vol]36.0 mg/dLCritically high7.0-18.0The [facility] HospitalComment on above:Performed By: #### BMP #### [facility] [address] [place] [address] Dr. Jag Roche nitrogen/Creatinine [Mass ratio]23.2 mg/mgNormalThe [facility] HospitalComment on above:Performed By: #### BMP #### [facility] [address] [place] [address] Dr. Jag Bangura RATE WESTERGRENon 21-29-5998PVL RATE26 mm/hrNormal<=30The [facility] HospitalComment on above:Performed By: #### SEDR #### [facility] [address] [place] [address] Dr. Jag WaldropXR CHEST 2 Von [id number] CHEST 2 VEXAMINATION: XR CHEST 2 V [...] Electronically authenticated by: ALEX WEISS Date: 2021-12-21 18:35NoOur Lady of Mercy HospitalOVA AND PARASITE EXAMINATIONon [id number] + Parasite Exam Final reportNoOur Lady of Mercy HospitalComment on above:Result Comment: These results were obtained using wet preparation(s) and trichrome stained smear. This test does not include testing for Cryptosporidium parvum, Cyclospora, or Microsporidia.Performed By: #### LIPID, BMP #### [facility] [address] [place] [address] Dr. Jag Klein 1CTuscarawas HospitalComment on above:Result Comment: No ova, cysts, or parasites seen. . One negative specimen does not rule out the possibility of a parasitic infection.Performed By: #### LIPID, BMP #### [facility] [address] [place] [address] Dr. Jag Aranda CULTUREon [id number] CultureFinal reportNoUniversity Hospitals St. John Medical CenterComformerly [facility] on above:Performed By: #### CXSTOOL #### [facility] [address] [place] [address] Dr. Jag booth Shiga Toxin EIANegativeNormalNegativeOhiohealth Grant Medical Center Comment on above:Performed By: #### CXSTOOL #### [facility] [address] [place] [address] Dr. Jag Klein 1CTuscarawas HospitalComment on above:Result Comment: No Salmonella or Shigella recovered.Performed By: #### CXSTOOL #### [facility] [address] [place] [address] Dr. Jag Klein Comment: No Campylobacter species isolated. Salmonella/Shigella ScreenFinal reportNoOur Lady of Mercy HospitalComment on above:Performed By: #### CXSTOOL #### [facility] [address] [place] [address] Dr. Jag Sandoval PANEL (PCR)on [id number] F 40/41Not detectedNormal NOT DETECTEDThe [facility] HospitalComment on above:Performed By: #### ERUR #### [facility] [address] [place] [address] Dr. Jag WaldropAstrovirusNot detectedNormalNOT DETECTEDThe [facility] Comment on above:Performed By: #### ERUR #### [facility] [address] [place] [address] Dr. Jag Handley. Diff toxin A/BDetectedCritically abnormalNOT DETECTEDThe [facility] HospitalComment on above:Performed By: #### ERUR #### [facility] [address] [place] [address] Dr. Jag TorrespylobacterNot detectedNormalNOT DETECTEDThe [facility] Comment on above:Performed By: #### ERUR #### [facility] [address] [place] [address] Dr. Jag PollockyptosporidiumNot detectedNormalNOT DETECTEDThe [facility] HospitalComment on above:Performed By: #### ERUR #### [facility] [address] [place] [address] Dr. Jag Meeks. CayetanensisNot detectedNormalNOT DETECTEDThe [facility] HospitalComment on above:Performed By: #### ERUR #### [facility] [address] [place] [address] Dr. Jag Hart. Coli C553Epc ApplicableNormalNot ApplicableThe [facility] HospitalComment on above:Performed By: #### ERUR #### [facility] [address] [place] [address] Dr. Jag Matute histolyticaNot detectedNormalNOT DETECTEDThe [facility] Comment on above:Performed By: #### ERUR #### [facility] [address] [place] [address] Dr. Jag HartAECNot detectedNormalNOT DETECTEDThe [facility] HospitalComment on above:Performed By: #### ERUR #### [facility] [address] [address] [address] Jag Soni detectedNormalNOT DETECTEDThe [facility] HospitalComment on above:Performed By: #### ERUR #### [facility] [address] [address] [address] Jag HartPECNot detectedNormalNOT DETECTEDThe [facility] HospitalComformerly [facility] on above:Performed By: #### ERUR #### [facility] [address] [address] [address] Jag HartTEJojo detectedNormalNOT DETECTEDThe [facility] HospitalComment on above:Performed By: #### ERUR #### [facility] [address] [address] [address] Jag Cardona detectedNormalNOT DETECTEDThe [facility] Comment on above:Performed By: #### ERUR #### [facility] [address] [address] [address] Jag Jaquez [facility] HospitalComment on above:Performed By: #### ERUR #### [facility] [address] [address] [address] Jag TEJEDA HEADERGI PANEL [facility] Comment on above:Performed By: #### ERUR #### [facility] [address] [place] [address] Dr. Jag Faye ECOLIGI PANEL DIARRHEAGENIC E.COLI / SHIGELLAKettering Health SpringfieldComment on above:Performed By: #### ERUR #### [facility] [address] [address] [address] Jag Faye INFOCleveland Clinic Marymount HospitalComformerly [facility] on above: Result Comment: EAEC- Enteroaggregative E. Coli EPEC- Enteropathogenic E. Coli ETEC- Enterotoxigenic E. Coli lt/st STEC- Shigella-like toxin-producing E. Coli stx1/stx2 EIEC- Shigella/Enteroinvasive E. ColiPerformed By: #### ERUR #### [facility] [address] [address] [address] Jag Faye PARASITESGI PANEL PARASITESKettering Health Springfield Comment on above:Performed By: #### ERUR #### [facility] [address] [address] [address] Jag SandovalPNLHD VIRUSGI PANEL VIRUSESKettering Health SpringfieldComment on above:Performed By: #### ERUR #### [facility] [address] [address] [address] Jag WaldropNorovirus GI/GIINot detectedNormalNOT DETECTEDThe [facility] HospitalComment on above:Performed By: #### ERUR #### [facility] [address] [address] [address] Jag Carrera. ShigelloidesNot detectedNormalNOT DETECTEDThe [facility] HospitalComment on above:Performed By: #### ERUR #### [facility] [address] [address] [address] Jag WaldropRotavirus ANot detectedNormalNOT DETECTEDOhiohealth [facility] Center Comment on above:Performed By: #### ERUR #### [facility] [address] [address] [address] Jag WaldropSalmonellaNot detectedNormalNOT DETECTEDOhiohealth [facility] Medical Center Comment on above:Performed By: #### ERUR #### [facility] [address] [address] [address] Jag WaldropSapovirusNot detectedNormalNOT DETECTEDOhiohealth [facility] Medical Center Comment on above:Performed By: #### ERUR #### [facility] [address] [address] [address] Jag WaldropSTECNot detectedNormalNOT DETECTEDThe [facility] HospitalComment on above:Performed By: #### ERUR #### [facility] [address] [address] [address] Jag WaldropVibrioNot detectedNormalNOT DETECTEDThe [facility] HospitalComment on above:Performed By: #### ERUR #### [facility] [address] [address] [address] Jag De La Cruz CholeraNot detectedNormalNOT DETECTEDThe [facility] Comment on above:Performed By: #### ERUR #### [facility] [address] [place] [address] Dr. Jag Hanna. EnterocoliticaNot detectedNormalNOT DETECTEDThe [facility] HospitalComment on above:Performed By: #### ERUR #### [facility] [address] [place] [address] Dr. Jag Hernandez BLD IMMUNO SCREENon [id number] BLOODNegativeNormal NEGATIVEThe [facility] HospitalComment on above:Performed By: #### LIPID, BMP #### [facility] [address] [place], [place] [address] [place]. Jag WaldropPROF CHEM 8 (BAS METB)on [id number] gap [Moles/Vol]15.5 mmol/LNormalThe [facility] HospitalComment on above:Performed By: #### POCGLUC #### [facility] [address] [place] [address] Dr. Jag WaldropCalcium [Mass/Vol]9.1 mg/dLNormal8.5-10.1The [facility] Comment on above:Performed By: #### POCGLUC #### [facility] [address] [place] [address] Dr. Jag WaldropChloride [Moles/Vol]106 mmol/EQbdjpo04-307Jde [facility] Comment on above:Performed By: #### POCGLUC #### [facility] [address] [place] [address] Dr. Jag WaldropCO2 [Moles/Vol]25.4 mmol/HVzndqt69.0-32.0The [facility] Comment on above:Performed By: #### POCGLUC #### [facility] [address] [place] [address] Dr. Jag WaldropCreatinine [Mass/Vol]1.18 mg/dLCritically high0.55-1.02The [facility] HospitalComment on above:Performed By: #### POCGLUC #### [facility] [address] [address] [address] Rm ChangEGFR-AF HCUVTVAD42 mL/min/1.10t4Vkfqwikzwj low>=60The [facility] HospitalComment on above:Performed By: #### POCGLUC #### [facility] [address] [address] [address] Rm ChangEGFR-NON AF QGAIGZHA41 mL/min/1.04z1Rcffsbjnua low>=60The [facility] HospitalComment on above:Performed By: #### POCGLUC #### [facility] [address] [address] [address] Jag WaldropGlucose [Mass/Vol]141 mg/dLCritically skew81-352Rjr [facility] HospitalComment on above:Performed By: #### POCGLUC #### [facility] [address] [address] [address] Jag WaldropPotassium [Moles/Vol]3.9 mmol/LNormal3.5-5.1The [facility] Comment on above:Performed By: #### POCGLUC #### [facility] [address] [address] [address] Jag WaldropSodium [Moles/Vol]143 mmol/EGnyfjj462-829Olg [facility] Comment on above:Performed By: #### POCGLUC #### [facility] [address] [address] [address] Jag WaldropUrea nitrogen [Mass/Vol]22.0 mg/dLCritically high7.0-18.0The [facility] HospitalComment on above:Performed By: #### POCGLUC #### [facility] [address] [address] [address] Jag WaldropUrea nitrogen/Creatinine [Mass ratio]18.6 mg/mgNormalThe [facility] HospitalComment on above:Performed By: #### POCGLUC #### [facility] [address] [address] [address] Jag WaldropXR KUB 1 VIEWon [id number] KUB 1 VIEWEXAMINATION: XR KUB 1 VIEW [...] Electronically authenticated by: ALEX WEISS Date: 2021-10-29 09:01NoKettering Health Miamisburg HospitalCULTURE URINEon [id number] URINECulture Observations: LIGHT GROWTH OF MIXED GENITAL SANDEE. NO POTENTIAL PATHOGENS SEEN.NormalThe [facility] HospitalComment on above:Performed By: #### ERUR #### [facility] [address] [place] [address] Dr. Jag WaldropGLYCOHEMOGLOBIN A1Con [id number] RECOMMENDATIONSEE BELOWOhiohealth Van Wert HospitalComformerly [facility] on above:Result Comment: ADA RECOMMENDED LIMIT 4.0 - 6.0 ADA THERAPEUTIC TARGET < 7.0 ACTION SUGGESTED > 7.0Performed By: #### ERUR #### [facility] [address] [place] [address] Dr. Jag WaldropGlucose [Mass/Vol]157 mg/dLKettering Health SpringfieldComment on above:Performed By: #### ERUR #### [facility] [address] [place] [address] Dr. Jag WaldropHbA1c (Bld) [Mass fraction]7.1 %Critically high4.5-6.2[facility] Grant Medical CenterComment on above:Performed By: #### ERUR #### [facility] [address] [place] [address] Dr. Jag WaldropLIPID PROFILEon [id number]-HDL RATIO NORMSEE [facility] SystemComformerly [facility] on above:Result Comment: 3.3 - 4.4 LOW RISK 4.4 - 7.1 AVERAGE RISK 7.1 - 11.0 MODERATE RISK >11.0 HIGH RISKPerformed By: #### POCGLUC #### [facility] [address] [place] [address] Dr. Jag WaldropCholesterol [Mass/Vol]150 mg/dLNonovant health medical park hospital<=200[facility] Comment on above:Performed By: #### POCGLUC #### [facility] [address] [address] [address] Jag WaldropCholesterol in HDL [Mass/Vol]39 mg/dLCritically faw52-78LzvOhiohealth Grant Medical CenterComment on above:Performed By: #### POCGLUC #### [facility] [address] [address] [address] Jag WaldropCholesterol in LDL [Mass/Vol]82.6 mg/dLKettering Health SpringfieldComment on above:Performed By: #### POCGLUC #### [facility] [address] [place] [address] Dr. Jag Brownleeestersoham.total/Cholesterol in HDL [Mass ratio]3.8 {ratio} NormalOhiohealth Grant Medical CenterComment on above:Performed By: #### POCGLUC #### [facility] [address] [place] [address] Dr. Jag Banuelos NORMAL> or = 60 mg/dl - LOW CARDIOVASCULAR RISK <40 mg/dl - HIGH CARDIOVASCULAR RISKKettering Health SpringfieldComment on above:Performed By: #### POCGLUC #### [facility] [address] [place] [address] Dr. Jag Herron CALC NORMALSEE BELOWKettering Health SpringfieldComment on above:Result Comment: <100 mg/dl OPTIMAL 100 - 129 mg/dl NEAR OR ABOVE OPTIMAL 130 - 159 mg/dl BORDERLINE HIGH 160 - 189 mg/dl HIGH >190 mg/dl VERY HIGH Performed By: #### POCGLUC #### [facility] [address] [place] [address] Dr. Jag WaldropTriglyceride [Mass/Vol]142 mg/dLNormal<=150The [facility] Comment on above:Performed By: #### POCGLUC #### [facility] [address] [place] [address] Dr. Jag SaeedLDL CALC28.4 mg/dLNoOur Lady of Mercy HospitalComment on above: Performed By: #### POCGLUC #### [facility] [address] [address] [address] Jag WaldropPROF CHEM 8 (BAS METB)on 14-77-5605Lcfxw gap [Moles/Vol]16.0 mmol/LNormalOhiohealth Grant Medical CenterComment on above:Performed By: #### POCGLUC #### [facility] [address] [address] [address] Jag WaldropCalcium [Mass/Vol]8.7 mg/dLNormal8.5-10.1The [facility] Comment on above:Performed By: #### POCGLUC #### [facility] [address] [address] [address] Jag WaldropChloride [Moles/Vol]108 mmol/LCritically xfjr35-718Ivn [facility] HospitalComment on above:Performed By: #### POCGLUC #### [facility] [address] [address] [address] Jag WaldropCO2 [Moles/Vol]22.1 mmol/HKuczst71.0-32.0The [facility] Comment on above:Performed By: #### POCGLUC #### [facility] [address] [address] [address] Jag WaldropCreatinine [Mass/Vol]1.72 mg/dLCritically high0.55-1.02The [facility] HospitalComment on above:Performed By: #### POCGLUC #### [facility] [address] [address] [address] Jag HartGFR-AF GLZXQAFG63 mL/min/1.32m9Cgvjainvus low>=60The [facility] HospitalComment on above:Performed By: #### POCGLUC #### [facility] [address] [address] [address] Jag HartGFR-NON AF QBOIKIMC26 mL/min/1.96o5Ymzdltgovy low>=60The [facility] HospitalComment on above:Performed By: #### POCGLUC #### [facility] [address] [address] [address] Jag WaldropGlucose [Mass/Vol]144 mg/dLCritically lvef69-225Xql [facility] HospitalComment on above:Performed By: #### POCGLUC #### [facility] [address] [address] [address] Jag WaldropPotassium [Moles/Vol]5.1 mmol/LNormal3.5-5.1[facility] Comment on above:Performed By: #### POCGLUC #### [facility] [address] [address] [address] Jag Conraddium [Moles/Vol]141 mmol/HAjgyln021-042WqpOhiohealth Grant Medical Center Comment on above:Performed By: #### POCGLUC #### [facility] [address] [address] [address] Jag WaldropUrea nitrogen [Mass/Vol]41.0 mg/dLCritically high7.0-18.0[facility] Grant Medical CenterComment on above:Performed By: #### POCGLUC #### [facility] [address] [place] [address] Dr. Jag Roche nitrogen/Creatinine [Mass ratio]23.8 mg/mgNoOur Lady of Mercy HospitalComment on above:Performed By: #### POCGLUC #### [facility] [address] [place] [address] Dr. Jag Murillo (CLEAN/CATCH) ROLLOFF DRIVER/MICRO IF IND.on 22-39-1941Tqjzdhvwg Ql (U) NegativeNormalNEGATIVEOhiohealth Grant Medical CenterComment on above:Performed By: #### LIPID, BMP #### [facility] [address] [place] [address] Dr. Jag Jack (U)SL CLOUDYAbnormalCLEARThHolmes County Joel Pomerene Memorial HospitalComment on above:Performed By: #### LIPID, BMP #### [facility] [address] [place] [address] Dr. Jag Lemus (U)LT. YELLOWNormalYELLOWOhiohealth Grant Medical CenterComment on above:Performed By: #### LIPID, BMP #### [facility] [address] [place] [address] Dr. Jag Rasmussenose Ql (U)NegativeNormalNEGATIVEOhiohealth Grant Medical CenterComment on above:Performed By: #### LIPID, BMP #### [facility] [address] [address] [address] Jag WaldropHemoglobin Ql (U)TRACE-INTACTAbnormalNEGATIVEOhiohealth Grant Medical CenterComment on above:Performed By: #### LIPID, BMP #### [facility] [address] [address] [address] Jag Reidones Ql (U)NegativeNormalNEGATIVEFostoria City Hospital HospitalComment on above:Performed By: #### LIPID, BMP #### [facility] [address] [address] [address] Jag WaldropLEUKOCYTESSMALLAbnormalNEGATIVEOhiohealth Grant Medical CenterComment on above:Performed By: #### LIPID, BMP #### [facility] [address] [place] [address] Dr. Jag Pollacktrite Ql (U)NegativeNormalNEGATIVEOhiohealth Grant Medical CenterComment on above:Performed By: #### LIPID, BMP #### [facility] [address] [address] [address] Jag WaldroppH (U)5.5 [pH]Normal5-9Ohio[facility] Grant Medical CenterComment on above: Performed By: #### LIPID, BMP #### [facility] [address] [address] [address] Jag WaldropSPEC GRAVITY1.869Sezkps4.005-<=1.025The [facility] HospitalComment on above:Performed By: #### LIPID, BMP #### [facility] [address] [address] [address] Jag Murillo PROTEINNegativeNormalNEGATIVE/ TRACEThe [facility] on above:Performed By: #### LIPID, BMP #### [facility] [address] [place] [address] Dr. Jag Mathis MICRO INDINDICATEDNoalThHolmes County Joel Pomerene Memorial HospitalComment on above: Performed By: #### LIPID, BMP #### [facility] [address] [address] [address] Jag He Qn (U)0.2 {Chris'U}/dLNormal0.2 - 1.0The [facility] Centerment on above:Performed By: #### LIPID, BMP #### [facility] [address] [address] [address] Jag Baez MICROSCOPIC ONLYon [id number]C SEEN [facility] CenterComformerly [facility] on above:Performed By: #### LIPID, BMP #### [facility] [address] [place] [address] Dr. Jag Cardona identified Cx Nom (U)INDICATEDNoalThHolmes County Joel Pomerene Memorial HospitalComformerly [facility] on above:Performed By: #### LIPID, BMP #### [facility] [address] [place] [address] Dr. Jag Adkins SEENNormalNONE SEENLima City Hospital on above:Performed By: #### LIPID, BMP #### [facility] [address] [place] [address] Dr. Jag Weathers LM Nom (Urine sed)NONE SEENNormalNONE SEENLima City Hospital on above:Performed By: #### LIPID, BMP #### [facility] [address] [place] [address] Dr. Jag Fowlerthelial cells LM Ql (Urine sed)RARENormalNONE SEEN /RAREThe [facility] HospitalComformerly [facility] on above:Performed By: #### LIPID, BMP #### [facility] [address] [place] [address] Dr. Jag SotoACEAbnormalNONE SEENLima City Hospital on above:Performed By: #### LIPID, BMP #### [facility] [address] [place] [address] Dr. Jag DupreeIrymtCYW9-3Qyqrba4-6Hyn [facility] on above:Performed By: #### LIPID, BMP #### [facility] [address] [place] [address] Dr. Jag GuadalupeBC2-5AbnormalNONE SEENThe [facility] HospitalComment on above: Performed By: #### LIPID, BMP #### [facility] [address] [place] [address] Dr. Jag Cardoso 50-65-7078Efdpqzyarip peptide B (Bld) [Mass/Vol]52.0 pg/mL Normal<=900.0The [facility] HospitalComment on above:Performed By: #### LIPID, BMP #### [facility] [address] [place] [address] Dr. Jag Burris AUTO DIFFon [id number] #0.1 103/ulNormal0.0-0.1The [facility] HospitalComment on above:Performed By: #### POCGLUC #### [facility] [address] [place] [address] Dr. Jag WaldropBasophils/100 WBC (Bld)0.8 %Normal0.2-2.0[facility] Comment on above:Performed By: #### POCGLUC #### [facility] [address] [place] [address] Dr. Jag Aguero #0.2 103/ulNormal0.0-0.7The [facility] HospitalComment on above: Performed By: #### POCGLUC #### [facility] [address] [place] [address] Dr. Jag Hartosinophils/100 WBC (Bld)3.0 %Normal0.9-7.0The [facility] Comment on above:Performed By: #### POCGLUC #### [facility] [address] [place] [address] Dr. Jag Hartrythrocyte distribution width (RBC) [Ratio]14.2 %Srkvdw49.0-15.0 The [facility] HospitalComment on above:Performed By: #### POCGLUC #### [facility] [address] [place] [address] Dr. Jag WaldropHematocrit (Bld) [Volume fraction]35.9 %Critically low36.0-48.0 The [facility] HospitalComment on above:Performed By: #### POCGLUC #### [facility] [address] [address] [address] Jag WaldropHemoglobin (Bld) [Mass/Vol]11.0 g/dLCritically low12.0-16.0The [facility] HospitalComment on above:Performed By: #### POCGLUC #### [facility] [address] [place] [address] Dr. Jag Del Real #0.03 10e3/ulNormal0.00-0.03The [facility] HospitalComment on above:Performed By: #### POCGLUC #### [facility] [address] [place] [address] Dr. Jag Del Real %0.4 %Normal0.0-0.5The [facility] HospitalComment on above: Performed By: #### POCGLUC #### [facility] [address] [place] [address] Dr. Jag Boo #2.8 103/ulNormal1.2-3.8The [facility] HospitalComment on above:Performed By: #### POCGLUC #### [facility] [address] [place] [address] Dr. Jag Castlehocytes/100 WBC (Bld)37.9 %Yzfxlp07.5-60.0The [facility] HospitalComment on above:Performed By: #### POCGLUC #### [facility] [address] [place] [address] Dr. Jag CaputoUAL DIFF REQNONormalThe [facility] HospitalComment on above: Performed By: #### POCGLUC #### [facility] [address] [place] [address] Dr. Jag Lujan (RBC) [Entitic mass]28.7 eaNcijcl43.7-34.0The [facility] HospitalComment on above:Performed By: #### POCGLUC #### [facility] [address] [place] [address] Dr. Jag Lujan (RBC) [Mass/Vol]30.6 g/cDEzgwih77.9-35.2The [facility] HospitalComment on above:Performed By: #### POCGLUC #### [facility] [address] [place] [address] Dr. Jag Hu (RBC) [Entitic vol]93.7 dSAabjdx60.0-99.0The [facility] HospitalComment on above:Performed By: #### POCGLUC #### [facility] [address] [place] [address] Dr. Jag Meléndez #0.5 103/ulNormal0.3-0.8The [facility] HospitalComment on above:Performed By: #### POCGLUC #### [facility] [address] [place] [address] Dr. Jag Ayonocytes/100 WBC (Bld)7.4 %Normal1.7-12.0The [facility] Comment on above:Performed By: #### POCGLUC #### [facility] [address] [place] [address] #3.7 103/ulNormal1.4-6.5The [facility] HospitalComment on above:Performed By: #### POCGLUC #### [facility] [address] [place] [address] Dr. Jag Trejoutrophils/100 WBC (Bld)50.5 %Vlmraj72.0-75.0The [facility] HospitalComment on above:Performed By: #### POCGLUC #### [facility] [address] [place] [address] Dr. Jag Cooneylet mean volume (Bld) [Entitic vol]10.2 fLNormal9.5-13.5The [facility] HospitalComment on above:Performed By: #### POCGLUC #### [facility] [address] [place] [address] Dr. Jag WaldropPLT261 103/pmXalsyy158-326Iro [facility] HospitalComment on above: Performed By: #### POCGLUC #### [facility] [address] [place] [address] Dr. Jag WaldropRBC3.83 106/ulCritically low4.20-5.40[facility] CenterComment on above:Performed By: #### POCGLUC #### [facility] [address] [address] [address] Jag WaldropWBC7.3 103/ulNormal4.0-11.0[facility] CenterComment on above: Performed By: #### POCGLUC #### [facility] [address] [address] [address] Jag WaldropSOU[facility] LANIER GLUCOSEon 68-38-4963Dhmomfi [Mass/Vol]156 mg/dL Critically glph52-241Yqy [facility] HospitalComment on above:Performed By: #### POCGLUC #### [facility] [address] [place] [address] Dr. Jag WaldropGlucose [Mass/Vol]304 mg/dLCritically srbt60-822Zor [facility] HospitalComment on above:Performed By: #### POCGLUC #### [facility] [address] [place] [address] Dr. Jag WaldropGlucose [Mass/Vol]77 mg/fHVmkybv54-040QmgOhiohealth Grant Medical Center Comment on above:Performed By: #### ERUR #### [facility] [address] [place] [address] Dr. Jag WaldropGlucose [Mass/Vol]136 mg/dLCritically uupv61-108GmgOhiohealth Grant Medical CenterComment on above:Performed By: #### ERUR #### [facility] [address] [place] [address] Dr. Jag WaldropGlucose [Mass/Vol]73 mg/dLCritically piq57-137LuiOhiohealth Grant Medical CenterComment on above:Performed By: #### ERUR #### [facility] [address] [place] [address] Dr. aJg WaldropPROElzbieta CHEM 8 (BAS METB)on 25-54-8022Suoob gap [Moles/Vol]15.5 mmol/LNormalOhiohealth Grant Medical CenterComment on above:Performed By: #### POCGLUC #### [facility] [address] [place] [address] Dr. Yilan ChangCalcium [Mass/Vol]8.3 mg/dLCritically low8.5-10.1The [facility] HospitalComment on above:Performed By: #### POCGLUC #### [facility] [address] [place] [address] Dr. Jag WaldropChloride [Moles/Vol]108 mmol/LCritically zsfa53-528Yvl [facility] HospitalComment on above:Performed By: #### POCGLUC #### [facility] [address] [place] [address] Dr. Jag WaldropCO2 [Moles/Vol]18.9 mmol/LCritically low21.0-32.0The [facility] [facility] HospitalComment on above:Performed By: #### POCGLUC #### [facility] [address] [place] [address] Dr. Jag WaldropCreatinine [Mass/Vol]1.43 mg/dLCritically high0.55-1.02The [facility] HospitalComment on above:Performed By: #### POCGLUC #### [facility] [address] [place] [address] Dr. Rm ChangEGFR-AF SAQDANPH45 mL/min/1.37a3Baxskchzjo low>=60The [facility] HospitalComformerly [facility] on above:Performed By: #### POCGLUC #### [facility] [address] [place] [address] Dr. Jag HartGFR-NON AF ORUPNHPJ49 mL/min/1.29z9Aojnsuvxbf low>=60The [facility] HospitalComment on above:Performed By: #### POCGLUC #### [facility] [address] [place] [address] Dr. Jag WaldropGlucose [Mass/Vol]269 mg/dLCritically wmdp99-249Zxf [facility] HospitalComment on above:Performed By: #### POCGLUC #### [facility] [address] [place] [address] Dr. Jag WaldropPotassium [Moles/Vol]5.4 mmol/LCritically high3.5-5.1The [facility] HospitalComment on above:Performed By: #### POCGLUC #### [facility] [address] [address] [address] Jag WaldropSodium [Moles/Vol]137 mmol/ZScmakz329-647Uos [facility] Comment on above:Performed By: #### POCGLUC #### [facility] [address] [address] [address] Jag WaldropUrea nitrogen [Mass/Vol]40.0 mg/dLCritically high7.0-18.0[facility] CenterComment on above:Performed By: #### POCGLUC #### [facility] [address] [address] [address] Jag Roche nitrogen/Creatinine [Mass ratio]28.0 mg/mgNoalThHolmes County Joel Pomerene Memorial HospitalComment on above:Performed By: #### POCGLUC #### [facility] [address] [address] [address] Jag WaldropAnion gap [Moles/Vol]14.0 mmol/LNormalOhiohealth Grant Medical Center Comment on above:Performed By: #### ERUR #### [facility] [address] [address] [address] Jag WaldropCalcium [Mass/Vol]8.9 mg/dLNormal8.5-10.1The [facility] Comment on above:Performed By: #### ERUR #### [facility] [address] [address] [address] Jag WaldropChloride [Moles/Vol]110 mmol/LCritically zvyg93-581LrcOhiohealth Grant Medical CenterComment on above:Performed By: #### ERUR #### [facility] [address] [address] [address] Jag WaldropCO2 [Moles/Vol]21.1 mmol/QCbywhi12.0-32.0The [facility] Comment on above:Performed By: #### ERUR #### [facility] [address] [address] [address] Jag WaldropCreatinine [Mass/Vol]1.32 mg/dLCritically high0.55-1.02The [facility] HospitalComment on above:Performed By: #### ERUR #### [facility] [address] [address] [address] Jag HartGFR-AF USDSXXSN56 mL/min/1.36f1Apstxfcmwm low>=60The [facility] HospitalComment on above:Performed By: #### ERUR #### [facility] [address] [address] [address] Jag HartGFR-NON AF OVUVAORI98 mL/min/1.24m7Hswcqrugdi low>=60The [facility] HospitalComment on above:Performed By: #### ERUR #### [facility] [address] [address] [address] Jag WaldropGlucose [Mass/Vol]79 mg/qRHnbywu21-173FxsOhiohealth Grant Medical Center Comment on above:Performed By: #### ERUR #### [facility] [address] [place] [address] Dr. Jag WaldropPotassium [Moles/Vol]6.1 mmol/LCritically high3.5-5.1[facility] Medical CenterComformerly [facility] on above:Result Comment: Test Repeated. Critical Value Verified Performed By: #### ERUR #### [facility] [address] [place] [address] Dr. Jag WaldropSodium [Moles/Vol]140 mmol/SJxxhrc770-531VuaOhiohealth Grant Medical Center Comment on above:Performed By: #### ERUR #### [facility] [address] [address] [address] Jag WaldropUrea nitrogen [Mass/Vol]45.0 mg/dLCritically high7.0-18.0The [facility] Centerment on above:Performed By: #### ERUR #### [facility] [address] [address] [address] Jag WaldropUrea nitrogen/Creatinine [Mass ratio]34.1 mg/mgNormalThe [facility] HospitalComformerly [facility] on above:Performed By: #### ERUR #### [facility] [address] [address] [address] Jag RameyC METABOLIC PANELon 45-12-2151Sxhuyak [Mass/Vol]8.9 mg/dL Normal8.6-10.3The [facility] CenterComment on above:Order Comment: No: Do not add to previous drawPerformed By: #### 30387, 47922 #### [facility] [address] [place] [address], USAChloride [Moles/Vol]105 mmol/MLhzusf83-171Rhj [facility] CenterComment on above:Order Comment: No: Do not add to previous drawPerformed By: #### 39622, 33009 #### [facility] [address] [place] [address], USACO2 [Moles/Vol]26 mmol/DSqpepf07-78Kou [facility] CenterComment on above:Order Comment: No: Do not add to previous draw Performed By: #### 23179, 71600 #### [facility] [address] [place] [address], USACreatinine [Mass/Vol]0.99 mg/dLNormal0.60-1.20The [facility] CenterComment on above:Order Comment: No: Do not add to previous drawPerformed By: #### 60727, 53151 #### [facility] [address] [place] [address], USAGFR/1.73 sq M predicted among blacks MDRD (S/P/Bld) [Vol rate/Area]mL/min/{1.73_m2}Normal>60The [facility] Comment on above:Order Comment: No: Do not add to previous drawPerformed By: #### 12260, 35198 #### [facility] [address] [place] [address], USAGFR/1.73 sq M predicted among non-blacks MDRD (S/P/Bld) [Vol rate/Area]mL/min/{1.73_m2}Normal>60The [facility] Comment on above:Order Comment: No: Do not add to previous drawPerformed By: #### 84782, 40401 #### [facility] [address] [place] [address], USAGlucose [Mass/Vol]145 mg/kAZree64-007Dcw [facility] CenterComment on above:Order Comment: No: Do not add to previous drawPerformed By: #### 04828, 47273 #### [facility] [address] [place] [place] [address], USAPotassium [Moles/Vol]3.7 mmol/LNormal3.5-5.1The [facility] CenterComment on above:Order Comment: No: Do not add to previous drawPerformed By: #### 13665, 60063 #### [facility] [address] [place] [place] [address], USASodium [Moles/Vol]139 mmol/ODvubsu269-632Oec [facility] CenterComment on above:Order Comment: No: Do not add to previous drawPerformed By: #### 09667, 09270 #### [facility] [address] [facility] [place] [address], USAUrea nitrogen [Mass/Vol]26 mg/dLHigh7-25The [facility] CenterComment on above:Order Comment: No: Do not add to previous drawPerformed By: #### 62402, 03190 #### [facility] [address] [facility] [place] [address], [facility] HOSPITALCBC W/DIFFon 14-05-0418BOJ BASOPHILS0.0 10*3/uLNormal 0.0-0.2The [facility] CenterComment on above:Order Comment: No: Do not add to previous drawPerformed By: #### 68220, 52130 #### [facility] [address] [facility] [place] [address], USAABS IMM GRANS0.0 10*3/uLNormal0.0-0.2The [facility] CenterComment on above:Order Comment: No: Do not add to previous drawPerformed By: #### 67278, 68168 #### [facility] [address] [place] [address], USAABS NEUTROPHILS2.3 10*3/uLNormal1.6-7.6The [facility] CenterComment on above:Order Comment: No: Do not add to previous drawPerformed By: #### 65702, 40053 #### [facility] [address] [place] [address], USABasophils/100 WBC (Bld)0.3 %Normal0.0-1.0The [facility] CenterComment on above:Order Comment: No: Do not add to previous drawPerformed By: #### 75578, 97560 #### [facility] [address] [place] [address], USAEosinophils (Bld) [#/Vol]0.0 10*3/uLNormal0.0-0.5The [facility] CenterComment on above:Order Comment: No: Do not add to previous drawPerformed By: #### 02961, 94163 #### [facility] [address] [place] [address], USAEosinophils/100 WBC (Bld)0.0 %Normal0.0-6.0The [facility] CenterComment on above:Order Comment: No: Do not add to previous drawPerformed By: #### 81668, 33483 #### [facility] [address] [place] [address], USAErythrocyte distribution width (RBC) [Ratio]13.3 %Normal 11.5-15.0The [facility] CenterComment on above:Order Comment: No: Do not add to previous drawPerformed By: #### 65905, 47524 #### [facility] [address] [place] [address], USAHematocrit (Bld) [Volume fraction]37.7 %Hotmii22.0-45.0The [facility] CenterComment on above:Order Comment: No: Do not add to previous drawPerformed By: #### 53050, 80931 #### [facility] [address] [place] [address], USAHemoglobin (Bld) [Mass/Vol]12.1 g/wSNlcyxt92.0-15.0The [facility] CenterComment on above:Order Comment: No: Do not add to previous drawPerformed By: #### 00201, 16529 #### [facility] [address] [place] [address], USAIMMATURE GRANS0.2 %Normal0.0-1.0The [facility] CenterComment on above:Order Comment: No: Do not add to previous draw Performed By: #### 71606, 39016 #### [facility] [address] [place] [address], USALymphocytes (Bld) [#/Vol]3.0 10*3/uLNormal1.2-4.0The [facility] CenterComment on above:Order Comment: No: Do not add to previous drawPerformed By: #### 75626, 74535 #### [facility] [address] [place] [address], USALymphocytes/100 WBC (Bld)52.0 %High20.0-45.0The [facility] CenterComment on above:Order Comment: No: Do not add to previous drawPerformed By: #### 50372, 84395 #### [facility] [address] [place] [address], USAMCH (RBC) [Entitic mass]28.7 tnDkzfhm02.0-33.0The [facility] CenterComment on above:Order Comment: No: Do not add to previous drawPerformed By: #### 50666, 09757 #### [facility] [address] [place] [address], PRESBYTERIAN HOSPITALMCHC (RBC) [Mass/Vol]32.1 g/bVVnbqoq17.0-35.0The [facility] CenterComment on above:Order Comment: No: Do not add to previous drawPerformed By: #### 74155, 84526 #### [facility] [address] [place] [address], PRESBYTERIAN HOSPITALMCV (RBC) [Entitic vol]89.3 vMGzbdak77.0-98.0The [facility] CenterComment on above:Order Comment: No: Do not add to previous drawPerformed By: #### 19314, 99788 #### [facility] [address] [place] [address], USAMonocytes (Bld) [#/Vol]0.5 10*3/uLNormal0.1-1.0The [facility] CenterComment on above:Order Comment: No: Do not add to previous drawPerformed By: #### 67111, 39936 #### [facility] [address] [place] [address], USAMONOS7.9 %Normal5.0-12.0The [facility] CenterComment on above:Order Comment: No: Do not add to previous drawPerformed By: #### 61712, 40953 #### [facility] [address] [place] [address], USANeutrophils/100 WBC (Bld)39.6 %Low40.0-72.0The [facility] CenterComment on above:Order Comment: No: Do not add to previous drawPerformed By: #### 83198, 38821 #### [facility] [address] [place] [address], USANucleated RBC/100 WBC (Bld) [Ratio]0 %Normal0-0The [facility] CenterComment on above:Order Comment: No: Do not add to previous drawPerformed By: #### 12135, 29458 #### [facility] [address] [place] [address], USAPLAT KDH249 10*3/xYQzsees294-928Dlc [facility] CenterComment on above:Order Comment: No: Do not add to previous draw Performed By: #### 40451, 19031 #### [facility] [address] [place] [address], USARBC (Bld) [#/Vol]4.22 10*6/uLNormal3.80-5.00The [facility] CenterComment on above:Order Comment: No: Do not add to previous drawPerformed By: #### 47724, 20589 #### [facility] [address] [place] [address], USAWBC (Bld) [#/Vol]5.85 10*3/uLNormal4.00-10.60The [facility] CenterComment on above:Order Comment: No: Do not add to previous drawPerformed By: #### 15351, 88403 #### [facility] [address] [place] [address], USAPOC GLUCOSE LABon 59-55-2809Wiwqbmy [Mass/Vol]180 mg/dLHigh 70-100The [facility] CenterComment on above:Performed By: #### 74223, 32962 #### [facility] [address] [place] [address], USAGlucose [Mass/Vol]129 mg/lYSgmm55-178Ohs [facility] CenterComment on above:Performed By: #### 60935, 35351 #### [facility] [address] [place] [address], USAGlucose [Mass/Vol]132 mg/oSYhnz70-428Qxk [facility] CenterComment on above:Performed By: #### 14430 #### [facility] [address] [place] [address], USAUFH HEPARIN ASSAYon 90-03-6042TGDEGGYUKIAKMM HEPARIN<0.10 Critically low0.30-0.70The [facility] CenterComment on above: Result Comment: Rivaroxaban and Apixaban will interfere with the anti Xa assay used to monitor UFH and LMWH. RESULTS CHECKED AND CALLED. ACCURATELY READ BACK [place] JANENE [place]AMARRIP[place] RN [place] [address]Performed By: #### 07863, 27672 #### [facility] [address] [place] [address], USABASIC METABOLIC PANELon 99-81-1251Qmxxtgb [Mass/Vol]8.5 mg/dLLow8.6-10.3The [facility] CenterComment on above:Order Comment: No: Do not add to previous drawPerformed By: #### 01682 #### [facility] [address] [place] [address], USAChloride [Moles/Vol]104 mmol/JRsqvcz56-116Uxg [facility] CenterComment on above:Order Comment: No: Do not add to previous drawPerformed By: #### 65564 #### [facility] [address] [place] [address], USACO2 [Moles/Vol]27 mmol/GSiqzah71-98Gln [facility] CenterComment on above:Order Comment: No: Do not add to previous draw Performed By: #### 95275 #### [facility] [address] [place] [address], USACreatinine [Mass/Vol]1.13 mg/dLNormal0.60-1.20The [facility] CenterComment on above:Order Comment: No: Do not add to previous drawPerformed By: #### 72593 #### [facility] [address] [place] [address], USAGFR/1.73 sq M predicted among blacks MDRD (S/P/Bld) [Vol rate/Area]mL/min/{1.73_m2}Normal>60The [facility] Comment on above:Order Comment: No: Do not add to previous drawPerformed By: #### 04893 #### [facility] [address] [place] [address], USAGFR/1.73 sq M predicted among non-blacks MDRD (S/P/Bld) [Vol rate/Area]52 ml/min/1.73sq mAbnormal>60The [facility] CenterComment on above:Order Comment: No: Do not add to previous drawPerformed By: #### 38029 #### [facility] [address] [place] [address], USAGlucose [Mass/Vol]131 mg/zSJmlc34-716Tlh [facility] CenterComment on above:Order Comment: No: Do not add to previous drawPerformed By: #### 18549 #### [facility] [address] [place] [address], USAPotassium [Moles/Vol]3.9 mmol/LNormal3.5-5.1The [facility] CenterComment on above:Order Comment: No: Do not add to previous drawPerformed By: #### 31416 #### [facility] [address] [place] [place] [address], USASodium [Moles/Vol]141 mmol/JDegnla075-880Rux [facility] CenterComment on above:Order Comment: No: Do not add to previous drawPerformed By: #### 52062 #### [facility] [address] [place] [address], USAUrea nitrogen [Mass/Vol]28 mg/dLHigh7-25The [facility] CenterComment on above:Order Comment: No: Do not add to previous drawPerformed By: #### 71957 #### [facility] [address] [place] [address], USACBC COMPLETE BLOOD COUNTon 39-54-8085Utvjszcijsk distribution width (RBC) [Ratio]13.5 %Hfwstp43.5-15.0The [facility] CenterComment on above:Order Comment: No: Do not add to previous draw Performed By: #### 32777 #### [facility] [address] [place] [address], USAHematocrit (Bld) [Volume fraction]37.1 %Xzdrfj12.0-45.0The [facility] CenterComment on above:Order Comment: No: Do not add to previous drawPerformed By: #### 29706 #### [facility] [address] [place] [address], USAHemoglobin (Bld) [Mass/Vol]12.2 g/vCQagecc66.0-15.0The [facility] CenterComment on above:Order Comment: No: Do not add to previous drawPerformed By: #### 38262 #### [facility] [address] [place] [address], PRESBYTERIAN HOSPITALMCH (RBC) [Entitic mass]28.8 lxDuuuig99.0-33.0The [facility] CenterComment on above:Order Comment: No: Do not add to previous drawPerformed By: #### 96997 #### [facility] [address] [place] [address], PRESBYTERIAN HOSPITALMCHC (RBC) [Mass/Vol]32.9 g/uMJwyqlu90.0-35.0The [facility] CenterComment on above:Order Comment: No: Do not add to previous drawPerformed By: #### 49160 #### [facility] [address] [place] [address], PRESBYTERIAN HOSPITALMCV (RBC) [Entitic vol]87.7 zMWqgmkz74.0-98.0The [facility] CenterComment on above:Order Comment: No: Do not add to previous drawPerformed By: #### 50732 #### [facility] [address] [place] [address], USANucleated RBC/100 WBC (Bld) [Ratio]0 %Normal0-0The [facility] CenterComment on above:Order Comment: No: Do not add to previous drawPerformed By: #### 84859 #### [facility] [address] [place] [address], USAPLAT [id number] 10*3/uFUdxabo536-534Mws [facility] CenterComment on above:Order Comment: No: Do not add to previous draw Performed By: #### 44394 #### [facility] [address] [place] [address], USARBC (Bld) [#/Vol]4.23 10*6/uLNormal3.80-5.00The [facility] CenterComment on above:Order Comment: No: Do not add to previous drawPerformed By: #### 06722 #### [facility] [address] [place] [address], USAWBC (Bld) [#/Vol]8.42 10*3/uLNormal4.00-10.60The [facility] CenterComment on above:Order Comment: No: Do not add to previous drawPerformed By: #### 73419 #### [facility] [address] [place] [address], USACardiovascular Lab Reporton [id number] Lab ReportUnOhioHealth O'[facility] Patient Name: [facility]ra [facility] A MR #: [id number] Department of Physician: Marshall Torres M.D. Division of Service Date: 08/23/2018 Cardiology Birthdate: 1970 Adult Cardiovascular Room #: 3AB [id number] [facility] She WinterLouis FengGerardo [place], [place] [address] Cardiovascular Laboratory Report FINAL IMPRESSION: 1. Mild [...] 5. Follow up with me in the [facility] post discharge. 6. Further recommendations deferred [...] the left radial artery was obtained. A 6-Wolof Glidesheath was inserted without difficulty. 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 There are luminal irregularities throughout the remainder [...] Godoy M.D. Date Trans: 08/24/2018 06:37 Amanda/yadira DN_JN:[id number] cc: Geovanni Brunner D.O. [address] [place] [address] [address] [facility] [address]UcnuagXvzKettering Health DaytonHIP RIGHT 1 OR 2 VWS WITH PELVISon [id number] RIGHT 1 OR 2 VWS WITH PELVISUnKnox Community Hospital Department of Radiology [address] [place] [id number] Patient Name: SHERLY HUMPHREYS : 1970 Sex: F Age: Race: White Pt. Location: [id number] Patient Status: D Ordered Date: 08/24/2018 12:30:00 [...] findings. Electronically signed by:Kristy Jones. Transcribed by: [email or web address], User Resident: [email or web address] Electronically Signed by: KRISTY JONES @ 08/25/2018 08:05 PM I personally read this/these film(s) with this [facility] CenterComment on above:Order Comment: No: Do not add to previous drawPOC GLUCOSE LABon [id number] [Mass/Vol]125 mg/jUHdal41-438Dvx [facility] CenterComment on above:Performed By: #### 32681 #### [facility] [address] [place] [address], USAGlucose [Mass/Vol]150 mg/pTFjur93-083Pzy [facility] CenterComment on above:Performed By: #### 22052 #### [facility] [facility] [address] [place] [address], USAGlucose [Mass/Vol]119 mg/oOXjpj30-592Hzv [facility] CenterComment on above:Performed By: #### [id number] #### [facility] [address] [place] [address], USAUFH HEPARIN ASSAYon 54-38-3286QHYAJDEMFTEFRV HEPARIN<0.10 Critically low0.30-0.70The [facility] CenterComment on above: Result Comment: Rivaroxaban and Apixaban will interfere with the anti Xa assay used to monitor UFH and LMWH. RESULTS CHECKED AND CALLED. ACCURATELY READ BACK [place] J[place]ARRIP[place] RN AT [address]32Performed By: #### [id number] #### [facility] [address] [place] [id number], PRESBYTERIAN HOSPITALAPTTon 88-88-4652kNUT Coag (Bld) [Time]38.8 sHigh25.0-35.0 The [facility] CenterComment on above:Order Comment: No: Do not add [...] BE USED FOR THIS PURPOSE.Performed By: #### [id number], [id number] #### [facility] [address] [facility]. [place] [id number], PRESBY[facility]IAN HOSPITALCBC COMPLETE BLOOD COUNTon 18-65-4483Bgewhbfcqqh distribution width (RBC) [Ratio]13.3 %Kcnoqb99.5-15.0The [facility] CenterComment on above:Order Comment: No: Do not add to previous draw Performed By: #### [id number] #### [facility] [address] [facility] [place] [address], USAHematocrit (Bld) [Volume fraction]41.4 %Psrbte38.0-45.0The [facility] CenterComment on above:Order Comment: No: Do not add to previous drawPerformed By: #### [id number] #### [facility] [address] [facility] [place] [address], USAHemoglobin (Bld) [Mass/Vol]13.8 g/wWKxztht00.0-15.0The [facility] CenterComment on above:Order Comment: No: Do not add to previous drawPerformed By: #### [id number] #### [facility] [address] [place] [place] [address], [facility] (RBC) [Entitic mass]29.0 orXzzljr77.0-33.0The [facility] CenterComment on above:Order Comment: No: Do not add to previous drawPerformed By: #### [id number] #### [facility] [address] [place] [id number], [facility]HC (RBC) [Mass/Vol]33.3 g/iQYmavrg47.0-35.0The [facility] CenterComment on above:Order Comment: No: Do not add to previous drawPerformed By: #### [id number] #### [facility] [address] [place] [id number], [facility] (RBC) [Entitic vol]87.0 hKQmihys97.0-98.0The [facility] CenterComment on above:Order Comment: No: Do not add to previous drawPerformed By: #### [id number] #### [facility] [address] [place] [address], PRESBYTERIAN HOSPITALNucleated RBC/100 WBC (Bld) [Ratio]0 %Normal0-0The [facility] CenterComment on above:Order Comment: No: Do not add to previous drawPerformed By: #### [id number] #### [facility] [address] [place] [id number], PRESBYTERIAN HOSPITALPLAT JRQ504 10*3/eMDbvvas683-269Bxz [facility] CenterComment on above:Order Comment: No: Do not add to previous draw Performed By: #### [id number] #### [facility] [address] [place] [address], PRESBYTERIAN HOSPITALRBC (Bld) [#/Vol]4.76 10*6/uLNormal3.80-5.00The [facility] CenterComment on above:Order Comment: No: Do not add to previous drawPerformed By: #### [id number] #### [facility] [address] [place] [address], USAWBC (Bld) [#/Vol]10.48 10*3/uLNormal4.60The [facility] CenterComment on above:Order Comment: No: Do not add to previous drawPerformed By: #### [id number] #### [facility] [address] [place] [address], USAHistory and Physicalon 07-60-1794Vxjxped and PhysicalMR#: [id number] [facility] Pt. Name: Sherly Humphreys Admitted: 08/23/2018 Date of : 1970 Attending Physician: Nini Valente MD Room #: 3AB [id number] Discharge Date: HISTORY AND PHYSICAL CHIEF COMPLAINT: [...] she went to the emergency department in [facility]. Initial evaluation included troponin and EKG, [...] with no ST-T wave changes. Troponin from [facility] was 0.01. Pending troponin in our [...] Valente MD Date Trans: 08/23/2018 06:27 Amanda/yadira DN_JN:[id number] Hospital GLUCOSE [facility] on 20-16-0873Zljrtjr [Mass/Vol]101 mg/iBOamp97-094Ygw [facility] CenterComment on above:Performed By: #### [id number] #### [facility] [address] [place] [address], PRES[facility]TERIAN HOSPITALGlucose [Mass/Vol]96 mg/yJYgswkx60-523Apy [facility] CenterComment on above:Performed By: #### [id number] #### [facility] [address] [place] [address], PRESBYTERIAN HOSPITALGlucose [Mass/Vol]134 mg/iCXutw11-744Ytr [facility] CenterComment on above:Performed By: #### [id number] #### [facility] [address] [place] [address], PRESBYTERIAN HOSPITALGlucose [Mass/Vol]164 mg/mJQvzk55-170Jer [facility] CenterComment on above:Performed By: #### [id number] #### [facility] [address] [place] [address], USAPROTHROMBIN TIMEon 66-20-6952OJT Coag (PPP) [Relative time] 1.06 {INR}Normal0.91-1.16The [facility] CenterComment on above:Order Comment: No: Do not add [...] OPTIMAL THERAPEUTIC RANGE. CHEST 1995;108:231S-246S.Performed By: #### 28109, 79068 #### [facility] [address] [facility] [place] [address], USAPT Coag (PPP) [Time]13.8 fPgzewi28.3-14.8The [facility] CenterComment on above:Order Comment: No: Do not add to previous drawResult Comment: ALL RESULTS MUST BE INTERPRETED WITH RESPECT TO BLOOD DRAWING ARTIFACT OR DILUTION ERROR OF ANTICOAGULANT AT THE TIME OF SAMPLING.Performed By: #### 02366, 42024 #### [facility] [address] [facility] [place] [address], USASERUM TESTon 02-74-6905OLIZCRBDC TESTNegative NormalThe [facility] CenterComment on above:Order Comment: Yes: Add to Previous draw if ablePerformed By: #### [id number] #### [facility] [address] [facility]. [place] [address], USATROPONIN-Ion 94-43-5640Gdggkrxt I.cardiac [Mass/Vol]0.01 ng/mLNormal0.00-0.04The [facility] CenterComment on above: Order Comment: No: Do not add to previous drawResult Comment: REFERENCE RANGES: 0.00 - 0.04 ng/ml NORMAL 0.05 - 0.50 ng/ml INDETERMINATE > 0.50 ng/ml CONSISTENT WITH AN M.I.Performed By: #### 59994 #### [facility] [address] [facility] [place] [address], USAUFH HEPARIN ASSAYon 12-29-0358ZUQKRDWQYXLDOT HEPARIN0.42 IU/mLNormal0.30-0.70The [facility] CenterComment on above: Order Comment: per hiren Quick Comment: Rivaroxaban and Apixaban will interfere with the anti Xa assay used to monitor UFH and LMWH.Performed By: #### 35881 #### [facility] [address] [facility] [place] [address], USAUNFRACTIONATED HEPARIN0.29 IU/mLLow0.30-0.70The [facility] CenterComment on above:Result Comment: Rivaroxaban and Apixaban will interfere with the anti Xa assay used to monitor UFH and LMWH.Performed By: #### [id number] #### [facility] [address] [place] [address], USAUS GALLBLADDERon 54-53-1250VL GALLBLADDERUnKnox Community [facility] Department of Radiology [address] [place] [id number] Patient Name: SHERLY HUMPHREYS : 1970 Sex: F Age: Race: White Pt. Location: [address] [place] [address] Patient Status: I Ordered Date: 08/23/2018 11:30:00 [...] gallbladder. Electronically signed by:Nathan Mauricio. Transcribed by: [email or web address], User Resident: Electronically Signed by: NATHAN MAURICIO @ 08/23/2018 03:33 [facility] HospitalComment on above:Order Comment: No: Do not add to previous draw Vital Signs Date TimeVital SignValuePerforming KouykhmvwFwcbemxt91-17-8814 11:20-0500Body boknbq773.56 Mundoisa Louann THAPA-C Work Phone: [facility]11-05-2025 11:20-0500 Body mass index (BMI) [Ratio]39.5 kg/m2Janene Lew NP-C Work Phone: [facility]11-05-2025 11:20-0500 Body lvnnoacvghd87.8 [degF]Janene Lew NP-C Work Phone: [facility]11-05-2025 11:20-0500 Body inywjw251.49 kgLisa Aichholz CORRECTIONAL SECURITY OFFICER-C Work Phone: 1(776)434-[address] [place], [place] [address]256111-05-2025 11:20-0500 Diastolic blood eczditrl82 mm[Hg]Janene Aichholz CORRECTIONAL SECURITY OFFICER-C Work Phone: 1(079)[address]11-05-2025 11:20-0500 Heart rate70 /minLisa Aichholz CORRECTIONAL SECURITY OFFICER-C Work Phone: 1(147)486-[address] [place], [place] [address]256111-05-2025 11:20-0500 SaO2% (BldA) [Mass fraction]98 %Janene Aichholz CORRECTIONAL SECURITY OFFICER-C Work Phone: 1(340)[address]11-05-2025 11:20-0500 Systolic blood ivldmnma755 mm[Hg]Janene Aichholz CORRECTIONAL SECURITY OFFICER-C Work Phone: 1(462)[address]10-28-2025 09:28-0400 Body gbfdue129.56 cmLisa Aichholz CORRECTIONAL SECURITY OFFICER-C Work Phone: 1(175)[address]10-28-2025 09:28-0400 Body mass index (BMI) [Ratio]39.9 kg/m2Lisa Aichholz CORRECTIONAL SECURITY OFFICER-C Work Phone: 1(184)[address]183 [address]10-28-2025 09:28-0400 Body yqvavqclnov10.6 [degF]Janene Aichholz CORRECTIONAL SECURITY OFFICER-C Work Phone: 1(407)580-[address] [place], [place] [address]256110-28-2025 09:28-0400 Body zygzda592.4 kgLisa Aichholz CORRECTIONAL SECURITY OFFICER-C Work Phone: 1(207)542-[address] [place], [place] [address]25[address]10-28-2025 09:28-0400 Diastolic blood vajpuvzb72 mm[Hg]Janene Aichholz CORRECTIONAL SECURITY OFFICER-C Work Phone: 1(867)807-[address] [place], [place] [address]256110-28-2025 09:28-0400 Heart rate71 /minLisa Aichholz CORRECTIONAL SECURITY OFFICER-C Work Phone: 1(232)408-[address] [place], [place] [address]10-28-2025 09:28-0400 Respiratory rate22 /minJanene Lew CORRECTIONAL SECURITY OFFICER-C Work Phone: [facility]10-28-2025 09:280400 SaO2% (BldA) [Mass fraction]96 %Janene Lew CORRECTIONAL SECURITY OFFICER-C Work Phone: [facility]10-28-2025 09:280400 Systolic blood apfyjpqz741 mm[Hg]Janene Lew CORRECTIONAL SECURITY OFFICER-C Work Phone: [facility]10-23-2025 08:13-0400 Body kikfjr802.56 cmKjose Petersen DMD Work Phone: 1(213)[address] [place], [place] 9834910-23-2025 08:13-0400Body mass index (BMI) [Ratio]40.34 kg/z6NvdroJoshua Petersen DMD Work Phone: 1(856)[address] [place], [place] 9834910-23-2025 08:13-0400Body surface area Derived from formula2.19 t9ClyaqJoshua Petersen DMD Work Phone: 1(639)[address] [place], [place] 9834910-23-2025 08:13-0400Body zhgittykrrq40.2 [degF]Joshua Petersen DMD Work Phone: 1(191)[address] [place], [place] 9834910-23-2025 08:13-0400Body zdecmo797.59 kgJoshua Petersen DMD Work Phone: 1(205)[address] [place], [place] 9834910-23-2025 08:13-0400Diastolic blood azzrcbwy21 mm[Hg]Joshua Petersen DMD Work Phone: 1(445)[address] [place], [place] 98[address]10-23-2025 08:13-0400Heart rate50 /minJoshua Petersen DMD Work Phone: 1(862)[address] [place], [place] 9834910-23-2025 08:13-0400Systolic blood vozbardt301 mm[Hg]Joshua Petersen DMD Work Phone: 1(813)[address] [place], [place] 9834909-16-2025 12:06-0400Diastolic blood xlcryhoq50 mm[Hg]Joshua Petersen DMD Work Phone: 1(012)942-[address] [place], [place] 3985409-16-2025 12:06-0400Heart rate64 /minJoshua Petersen DMD Work Phone: 1(096)[address]09-16-2025 12:06-0400Systolic blood nthdqylx800 mm[Hg]Joshua Petersen DMD Work Phone: 1(213)[address]09-02-2025 08:50-0400Body qxssllysnwb62.3 [degF]Janene Aichholz Work Phone: [facility]09-02-2025 08:50-0400 Body oymvtk605.77 kgLisa Aichholz Work Phone: [facility]09-02-2025 08:50-0400 Diastolic blood dyazskzk71 mm[Hg]Janene Aichholz Work Phone: [facility]09-02-2025 08:50-0400 Heart rate56 /minLisa Aichholz Work Phone: [facility]09-02-2025 08:50-0400 Respiratory rate20 /minLisa Aichholz Work Phone: [facility]09-02-2025 08:50-0400 Systolic blood ithdfgcf645 mm[Hg]Janene Aichholz Work Phone: [facility]08-19-2025 09:25-0400 Body pqsnyc705.56 cmKjose Petersen DMD Work Phone: 2(125)[address]08-19-2025 09:25-0400Body mass index (BMI) [Ratio]39.48 kg/k6HhsxjJoshua Petresen DMD Work Phone: 1(371)[address]08-19-2025 09:25-0400Body surface area Derived from formula2.17 c3Dutmejose Doyleani DMD Work Phone: 1(596)9-[address] [place], [place] 3985408-19-2025 09:25-0400Body ailwjetgkcp62.7 [degF]Joshua Petersen DMD Work Phone: 1(368)[address] [place], [place] 9834908-19-2025 09:25-0400Body nefqal575.33 kgJoshua Petersen DMD Work Phone: 1(217)[address] [place], [place] 9834908-19-2025 09:25-0400Diastolic blood ukhdsiwf57 mm[Hg]Joshua Petersen DMD Work Phone: 1(908)[address] [place], [place] 9834908-19-2025 09:25-0400Heart rate53 /Tea Petersen DMD Work Phone: 1(209)[address] [place], [place] 9834908-19-2025 09:25-0400Systolic blood uqgqzxaq453 mm[Hg]Joshua Petersen DMD Work Phone: 1(769)[address] [place], [place] 9834908-13-2025 09:39-0400Body zjvbwu502.56 cmLisa Aichholz Work Phone: [facility]08-13-2025 09:39-0400 Body mass index (BMI) [Ratio]39.8 kg/m2Lisa Aichholz Work Phone: [facility]08-13-2025 09:39-0400 Body rkcutb040.23 kgLisa Aichholz Work Phone: [facility]08-13-2025 09:39-0400 Diastolic blood iwpiauat19 mm[Hg]Janene Aichholz Work Phone: [facility]08-13-2025 09:39-0400 Heart rate61 /minLisa Aichholz Work Phone: [facility]08-13-2025 09:39-0400 Respiratory rate16 /minLisa Aichholz Work Phone: [facility]08-13-2025 09:39-0400 SaO2% (BldA) [Mass fraction]98 %Janene Louann Work Phone: [facility]08-13-2025 09:39-0400 Systolic blood ayvznhdp712 mm[Hg]Janene Louann Work Phone: [facility]07-21-2025 09:50-0400 Body .2 cmAllison Petznick DO Work Phone: [facility] CenterYpnqfcrbjs94-19-6756 09:50-0400Body mass index (BMI) [Ratio]36.65 kg/o0Paimoqn Petznick DO Work Phone: noH[facility] HospitalMqfstzisux70-86-3714 09:50-0400Body temperature 98.01 [degF]Marya Petznick DO Work Phone: [facility] CenterUfpvbuggsz77-96-9274 09:50-0400Body .14 kgAllison Petznick DO Work Phone: no[facility] HospitalQyjrhycyjg74-71-9382 09:50-0400Diastolic blood essbbmxf70 mm[Hg]Marya Petznick DO Work Phone: no[facility] HospitalYiehbiwhmq60-08-4461 09:50-0400Heart rate56 /min Marya Petznick DO Work Phone: no[facility] HospitalDexowwfddo11-64-4141 09:50-5187KeR9% (BldA) [Mass fraction]96 %Marya Petznick DO Work Phone: no[facility] HospitalWvpnsnfvww22-11-4587 09:50-0400Systolic blood duojfykh460 mm[Hg]Marya Petznick DO Work Phone: no[facility] HospitalNissntollh24-21-4572 09:40-0400Body mass index (BMI) [Ratio]37.59 kg/m2Janene Lew CORRECTIONAL SECURITY OFFICER Work Phone: no[facility] HospitalOrznaidmzd96-13-6809 09:40-0400Body temperature 98.49 [degF]Janene Lew CORRECTIONAL SECURITY OFFICER Work Phone: no[facility] HospitalFbozbdwyqe88-46-9756 09:40-0400Body bodere230.86 kgJanene Lew CORRECTIONAL SECURITY OFFICER Work Phone: no[facility] HospitalFwceazfoqj83-42-6045 09:40-0400Diastolic blood lcvtomiu06 mm[Hg]Janene Jonesomkar CORRECTIONAL SECURITY OFFICER Work Phone: no[facility] HospitalAjazljsshu68-28-6469 09:40-0400Heart rate67 /min Janene Lew CORRECTIONAL SECURITY OFFICER Work Phone: [facility] CenterUkzmismlff38-38-9862 09:40-0400Respiratory rate22 /minJanene Middletonrufus CORRECTIONAL SECURITY OFFICER Work Phone: no[facility] HospitalBvxyifkrcb83-91-4311 09:40-8720IrY7% (BldA) [Mass fraction]97 %Janene Jonesomkar CORRECTIONAL SECURITY OFFICER Work Phone: no[facility] HospitalCoxrfjlcyh98-02-9304 09:40-0400Systolic blood yaihpqtu736 mm[Hg]Janene Lew CORRECTIONAL SECURITY OFFICER Work Phone: no[facility] HospitalHamixnxruo03-67-8069 09:07-0500Body xihuyh836.2 cmAllison Petznick DO Work Phone: no[facility] HospitalIodsjwgqpo46-54-8098 09:07-0500Body mass index (BMI) [Ratio]38.37 kg/f4Nuwlvcp Petznick DO Work Phone: no[facility] HospitalJauilrejkg24-68-1245 09:07-0500Body temperature 98.2 [degF]Marya Petznick DO Work Phone: no[facility] HospitalIuqvficviu23-45-1231 09:07-0500Body doccrq148.13 kgAllison Petznick DO Work Phone: no[facility] HospitalMpdiaacvqn52-36-8726 09:07-0500Diastolic blood mm[Hg]Marya Petznick DO Work Phone: no[facility] HospitalJzgmwdaldj41-81-6048 09:07-0500Heart rate61 /min Marya Petznick DO Work Phone: no[facility] HospitalWtbcxvamyr41-30-1870 09:07-1371GbF3% (BldA) [Mass fraction]97 %Marya Petznick DO Work Phone: no[facility] HospitalRoyrrcgnav81-36-7790 09:07-0500Systolic blood mjugfjkh622 mm[Hg]Marya Petznick DO Work Phone: no[facility] HospitalIklvamaamk43-87-3457 09:28-0500Body wtuuda060.2 Mundoisa Louann CORRECTIONAL SECURITY OFFICER Work Phone: [facility] CenterTqzfqcyops22-72-5952 09:28-0500Body mass index (BMI) [Ratio]40.69 kg/m2Lisa Louann CORRECTIONAL SECURITY OFFICER Work Phone: [facility] CenterEkyfxlybmk09-29-0279 09:28-0500Body temperature 98.49 [degF]Janene Louann CORRECTIONAL SECURITY OFFICER Work Phone: [facility] CenterTmtxrrkclk24-93-6254 09:28-0500Body gheeog250.84 kgLi Reddtimmyangiez CORRECTIONAL SECURITY OFFICER Work Phone: [facility] CenterQhwoyyftin20-83-8383 09:28-0500Diastolic blood ethciiaq62 mm[Hg]Janene Louann CORRECTIONAL SECURITY OFFICER Work Phone: [facility] CenterNrlpxebxev86-99-0374 09:28-0500Heart rate60 /min Janene Louann CORRECTIONAL SECURITY OFFICER Work Phone: [facility] CenterTfklwjyfqq83-39-3110 09:28-0500Respiratory rate20 /minLisa Reddtimmyomkar CORRECTIONAL SECURITY OFFICER Work Phone: [facility] CenterXgjcnamhnt79-13-0012 09:28-3477RcK1% (BldA) [Mass fraction]96 %Janene Louann CORRECTIONAL SECURITY OFFICER Work Phone: no[facility] HospitalAagckzrvkx44-07-7668 09:28-0500Systolic blood mm[Hg]Janene Louann CORRECTIONAL SECURITY OFFICER Work Phone: [facility] CenterZilyxlfezo60-86-5762 09:23-0500Body .6 cmAllison Petznick DO Work Phone: no[facility] HospitalQspfntflca84-23-8215 09:23-0500Body mass index (BMI) [Ratio]46.86 kg/t3Rvlsang Petznick DO Work Phone: no[facility] HospitalYlyakizqmd33-62-2824 09:23-0500Body temperature 96.8 [degF]Marya Petznick DO Work Phone: no[facility] HospitalRhouduvzns06-34-6400 09:23-0500Body nqymuj104.83 kgAllison Petznick DO Work Phone: [place] [address]Etzvxtkwjq08-97-0265 09:23-0500Diastolic blood mm[Hg]Marya Petznick DO Work Phone: no[facility] HospitalUtrtwwnaix11-07-1860 09:23-0500Heart rate56 /min Marya Petznick DO Work Phone: no[facility] HospitalDnjjqmptbk13-33-5051 09:23-0088MpL1% (BldA) [Mass fraction]97 %Marya Petznick DO Work Phone: no[facility] HospitalQqcbmrlusy31-66-9952 09:23-0500Systolic blood ogdvyyor195 mm[Hg]Marya Petznick DO Work Phone: no[facility] HospitalSlqjyycnie19-53-7002 08:35-0400Body ojsmfw791.6 Mundoisa Louann CORRECTIONAL SECURITY OFFICER Work Phone: [facility] CenterOgcoxkggzt85-93-8854 08:35-0400Body mass index (BMI) [Ratio]49.06 kg/m2Luannesa Emiz CORRECTIONAL SECURITY OFFICER Work Phone: [facility] CenterBfqhzxdpvk14-80-5473 08:35-0400Body temperature 98.71 [degF]Janene Louann CORRECTIONAL SECURITY OFFICER Work Phone: [facility] CenterKzysbucxbe79-80-3715 08:35-0400Body cfppud161.64 kgLisa Louann CORRECTIONAL SECURITY OFFICER Work Phone: [facility] CenterEduxezjzed50-19-8308 08:35-0400Diastolic blood jmwojarh31 mm[Hg]Janene Aichholz CORRECTIONAL SECURITY OFFICER Work Phone: [facility] CenterBdpnjxevxh24-92-7963 08:35-0400Heart rate66 /min Janene Aichholz CORRECTIONAL SECURITY OFFICER Work Phone: [facility] CenterNafyzegpxg95-57-6386 08:35-0400Respiratory rate20 /minLisa Aichholz CORRECTIONAL SECURITY OFFICER Work Phone: [facility] CenterRxxuddrtpf14-94-9216 08:35-4546JcO5% (BldA) [Mass fraction]98 %Janene Aichholz CORRECTIONAL SECURITY OFFICER Work Phone: [facility] CenterMwdljdydki79-45-9992 08:35-0400Systolic blood azeovvkz908 mm[Hg]Janene Aichholz CORRECTIONAL SECURITY OFFICER Work Phone: [facility] CenterOumnuaisow65-33-6048 11:00-0400Diastolic blood joqcmugv15 mm[Hg]Janene Aichholz Work Phone: 1(019)031-[address] [place], [place] 0256107-18-2024 11:00-0400 Heart rate52 /minLisa Aichholz Work Phone: 1(417)782-[address] [place], [place] 0256107-18-2024 11:00-0400 Respiratory rate16 /minLisa Aichholz Work Phone: 1(039)[address]07-18-2024 11:00-0400 SaO2% (BldA) [Mass fraction]98 %Janene Aichholz Work Phone: 1(550)874-[address] [place], [place] 0256107-18-2024 11:00-0400 Systolic blood mm[Hg]Janene Aichholz Work Phone: 1(277)788-[address] [place], [place] 0256107-18-2024 10:30-0400 Inhaled oxygen flow rate8 L/minLisa Aichholz Work Phone: 1(573)[address]07-18-2024 07:28-0400 Body rbloks250.56 cmLisa Aichholz Work Phone: 1(797)573-[address] [place], [place] 0256107-18-2024 07:28-0400 Body sshzrostyik47.9 [degF]Janene Aichholz Work Phone: 1(314)[address]07-18-2024 07:28-0400 Body uwkqsh255.72 kgLisa Aichholz Work Phone: 1(128)[address]07-02-2024 13:05-0400 Body dstkan309.56 cmLisa Aichholz Work Phone: 1(053)[address]07-02-2024 13:05-0400 Body mass index (BMI) [Ratio]51.5 kg/m2Lisa Aichholz Work Phone: 1(924)[address]07-02-2024 13:05-0400 Body lvsexbffmwk17.3 [degF]Janene Aichholz Work Phone: 1(418)[address]07-02-2024 13:05-0400 Body .3 kgLisa Aichholz Work Phone: 1(363)[address]07-02-2024 13:05-0400 Diastolic blood rmitxouq40 mm[Hg]Janene Aichholz Work Phone: 1(819)[address]07-02-2024 13:05-0400 Heart rate69 /minLisa Aichholz Work Phone: 1(701)[address]07-02-2024 13:05-0400 Respiratory rate18 /minLisa Aichholz Work Phone: 1(319)[address]07-02-2024 13:05-0400 SaO2% (BldA) [Mass fraction]99 %Janene Aichholz Work Phone: 1(226)[address]07-02-2024 13:05-0400 Systolic blood smhttyyh576 mm[Hg]Janene Aichholz Work Phone: 1(863)[address]06-18-2024 08:00-0400 Body jgnhclkbaaz63.9 [degF]Janene Aichholz Work Phone: 1(391)471-[address] [place], [place] 0256106-18-2024 08:00-0400 Diastolic blood ubdiisyh25 mm[Hg]Janene Aichholz Work Phone: 1(152)72583 [address]06-18-2024 08:00-0400 Heart rate58 /minLisa Aichholz Work Phone: 1(961)75983 [address]06-18-2024 08:00-0400 Respiratory rate16 /minLisa Aichholz Work Phone: 1(976)7[address]06-18-2024 08:00-0400 SaO2% (BldA) [Mass fraction]100 %Janene Aichholz Work Phone: 1(554)[address]06-18-2024 08:00-0400 Systolic blood fkvvpuvu082 mm[Hg]Janene Aichholz Work Phone: 1(861)[address]06-18-2024 05:02-0400 Body iuaqfj029.8 kgLisa Aichholz Work Phone: 1(018)[address]06-17-2024 05:34-0400 Body .56 cmLisa Aichholz Work Phone: 1(673)[address]05-01-2024 10:02-0400 Body .56 cmLisa Aichholz Work Phone: 1(064)95983 [address]05-01-2024 10:02-0400 Body mass index (BMI) [Ratio]54.6 kg/m2Lisa Aichholz Work Phone: 1(963)43583 [address]05-01-2024 10:02-0400 Body .9 [degF]Janene Aichholz Work Phone: 1(894)[address]05-01-2024 10:02-0400 Body fcwkab672.24 kgLisa Aichholz Work Phone: [phone]05-01-2024 10:02-0400 Diastolic blood vsnqkqoh61 mm[Hg]Janene Jonesholrufus Work Phone: [facility]05-01-2024 10:02-0400 Heart rate59 /Garland Jonseholrufus Work Phone: [facility]05-01-2024 10:02-0400 Respiratory rate18 /minJanene Jonesholrufus Work Phone: [facility]05-01-2024 10:02-0400 SaO2% (BldA) [Mass fraction]98 %Janene Jonesholrufus Work Phone: [facility]05-01-2024 10:02-0400 Systolic blood dadpzgxj394 mm[Hg]Janene Jonesholz Work Phone: [facility]05-01-2023 10:15-0400 Body sgiyxk559.56 cmSlan Sams Other [place] [employer] Other 05-01-2023 10:15-0400Body mass index (BMI) [Ratio] 51.63 kg/c6Cuyrwifern Sams Other [facility] Other 05-01-2023 10:15-0400Body dqkebd903.44 kgIvan Sams [facility] Other 05-01-2023 10:15-0400Diastolic blood nutzuhrz71 mm[Hg] Ivan Sams Other [employer] Other 05-01-2023 10:15-0557PeN3% (BldA) [Mass fraction]99 % Ivan Sams Other [facility] Other 05-01-2023 10:15-0400Systolic blood ayyezlhs330 mm[Hg] Ivan Pandaky Other [place] [employer] Other 03-20-2023 12:30-0400Body klilpm798.56 cmSlan Sams Other [place] [employer] Other 03-20-2023 12:30-0400Body mass index (BMI) [Ratio] 51.39 kg/x6DfelgtIvan Sams Other [place] [employer] Other 03-20-2023 12:30-0400Body zptyxj200.81 kgShfern Sams Other [place] [employer] Other 03-20-2023 12:30-0400Diastolic blood hdndrbna39 mm[Hg] Ivan Pandaky Other [place] [employer] Other 03-20-2023 12:30-7759CzL3% (BldA) [Mass fraction]99 % Ivan Sams Other [place] [employer] Other 03-20-2023 12:30-0400Systolic blood bjpwyncc100 mm[Hg] Ivan Latrell Other [place] [employer] Other 03-11-2023 15:59-0500Body uzhpzs919.56 cmLisa Karenomkar Work Phone: [facility]03-11-2023 15:59-0500 Body kmgswakawxq52.2 [degF]Janene Louann Work Phone: [facility]03-11-2023 15:59-0500 Body qnemgz625.4 kgLisa Reddomkar Work Phone: [facility]03-11-2023 15:59-0500 Diastolic blood hfezascb88 mm[Hg]Janene Jonesholrufus Work Phone: [facility]03-11-2023 15:59-0500 Heart rate94 /Garland Jonesholz Work Phone: [facility]03-11-2023 15:59-0500 Respiratory rate20 /minJanene Jonesholrufus Work Phone: [facility]03-11-2023 15:59-0500 SaO2% (BldA) [Mass fraction]96 %Janene Karenholz Work Phone: [facility]03-11-2023 15:59-0500 Systolic blood zicildur567 mm[Hg]Janene Jonesholz Work Phone: [facility]01-27-2023 12:00-0500 Body .56 cmDale Hamilton Other [facility] Other 01-27-2023 12:00-0500Body mass index (BMI) [Ratio] 51.94 kg/m2Dale Hamilton Other [place] [employer] Other 01-27-2023 12:00-0500Body ycodcv808.26 kgDale Hamilton Other [place] [employer] Other 01-10-2023 12:20-0500Body .56 Rylie Mac Other [facility] Other 01-10-2023 12:20-0500Body mass index (BMI) [Ratio] 51.94 kg/m2Halle Mac Other [facility] Other 01-10-2023 12:20-0500Body myjajcspxzo29.5 [degF]Halle Mac Other [facility] [employer] Other 01-10-2023 12:20-0500Body jamddh775.26 kgAzaurelia Mac Other [employer] Other 01-10-2023 12:20-0500Diastolic blood kynyboni45 mm[Hg] Halle Mac Other [employer] Other 01-10-2023 12:20-0500Respiratory rate18 /minHalle Mac Other [employer] Other 01-10-2023 12:20-4719UyZ6% (BldA) [Mass fraction]97 % Halle Mac Other [employer] Other 01-10-2023 12:20-0500Systolic blood sxmnuouz465 mm[Hg] Halle Mac Other [employer] Other 10-12-2022 16:15-0400Body ejhlcb905.56 cmPeggy Bolivar Other [employer] Other 10-12-2022 16:15-0400Body mass index (BMI) [Ratio] 52.78 kg/w3Usahr Bolivar Other [employer] Other 10-12-2022 16:15-0400Body tvuphhqleou25.1 [degF]Emma Bolivar Other [employer] Other 10-12-2022 16:15-0400Body gdgcac398.48 kgPeggy Bolivar Other [employer] Other 10-12-2022 16:15-0400Diastolic blood rzhyxfis03 mm[Hg] Emma Bolivar Other [employer] Other 10-12-2022 16:15-8410IxS4% (BldA) [Mass fraction]98 % Emma Bolivar Other [employer] Other 10-12-2022 16:15-0400Systolic blood zpvtjuno637 mm[Hg] Emma Bolivar Other [employer] Other 08-23-2022 12:20-0400Body efmtvp606.56 cmDale Hamilton Other [employer] Other 08-23-2022 12:20-0400Body mass index (BMI) [Ratio] 46.34 kg/m2Dale Hamilton Other [employer] Other 08-23-2022 12:20-0400Body fhfiii836.47 kgDale Hamilton Other [employer] Other 07-28-2022 16:20-0400Body zbsweo515.56 cmDale Hamilton Other [employer] Other 07-28-2022 16:20-0400Body mass index (BMI) [Ratio] 46.34 kg/m2Dale Hamilton Other [employer] Other 07-28-2022 16:20-0400Body .47 kgDale Hamilton Other [employer] Other 06-16-2022 14:00-0400Body iluyen791.56 cmDale Hamilton Other [employer] Other 06-16-2022 14:00-0400Body mass index (BMI) [Ratio]46 kg/m2Dale Hamilton Other [employer] Other 06-16-2022 14:00-0400Body wygeam885.56 kgDale Hamilton Other [employer] Other 05-17-2022 15:40-0400Body civzup221.56 cmDale Hamilton Other [employer] Other 05-17-2022 15:40-0400Body mass index (BMI) [Ratio]46 kg/m2Dale Hamilton Other [employer] Other 05-17-2022 15:40-0400Body mvogoa666.56 kgDale Hamilton Other [employer] Other Encounters Encounter DateEncounter TypeCare ProviderFacilityStart: 02-18-2025 End: 05-92-3990qohwcgiqwsRdshJair Lew NP-C Work Phone: -[facility] ClydeStart: 02-18-2025 End: 67-42-4495Hgoskbk encounter procedureLisa Moses FREEDC-[facility] [place] Work Phone: Start: 58-65-2654Tjmcrdtpta Judit Alonso MDPEACEHEALTH CredibleStart: 55-08-8668eoakvxacxeDquhicvswwl Abdelaziz [facility] Anders[facility]art: 02-10-2025 End: 93-28-0088lxghgzarhvMnkzJair Lew NP-C Work Phone: -[facility] ClydeStart: 02-10-2025 End: 19-21-6499Rpstxte encounter procedureLisa Moses Lew NP-C-[facility] [place] Work Phone: Start: 02-05-2025 End: 91-72-3661Xkhwsftai identifierJoshua Petersen DMD Work Phone: Dentln ClinicStart: 04-18-9339wudsohklhxEbsps [facility]tart: 51-38-8928Ciitonoysq Judit Alonso MD- CredibleStart: 01-26-2025 End: 95-25-4418qcnoewoecuTsgntlc Chastity Conway MDFacility:[facility] [place] Start: 07-20-3863Wbq-patient / Non-visitAndrius Man SHARMA-[facility] Work Phone: Start: 12-30-2024 End: 64-89-0691Kmcetiewj Yang Petersen DMD Work Phone: [facility] ClinicStart: 12-16-2024 End: 56-58-6834tfftqpcdxcVxon J Aichholz Work Phone: [facility] Work Phone: Start: 12-16-2024 End: 55-41-7133Vxsjdmn encounter procedureJanene Lew CORRECTIONAL SECURITY OFFICER-C-[facility] [place] Work Phone: Start: 82-68-9137nfskbhquqdEBQDBerger Hospitaltart: 12-12-2024 End: 21-08-7583wahdxszvouBWBFKeenan Private Hospitaltart: 12-06-2024 End: 67-98-7525Hfnnbcugi Result EncounterGeneric External Data ProviderNOMS External Department UnsolicitedStart: 12-06-2024 End: 24-19-0043Ybgwyhqls Result EncounterGeneric External Data ProviderNOMS External Department UnsolicitedStart: 12-06-2024 End: 92-24-7061SeecpePhnu Aichholz NP Work Phone: NOMS CWM FMComment on above:Restless leg syndrome Start: 12-02-2024 End: 57-47-0765zcnhyelg oral evaluation - established patientKjose Petersen DMD Work Phone: [facility]: 12-02-2024 End: 42-95-7305Xqifhkbus identifierKjose Petersen DMD Work Phone: [facility] ClinicStart: 11-26-2024 End: 89-43-7121nhcqiebusxSewb J Aichholz Work Phone: [facility] Work Phone: Start: 11-26-2024 End: 52-93-1418Ipwlcxf encounter procedureHalle Mac MD-[facility] Work Phone: Start: 11-21-2024 End: 01-71-3039LfzwsoQbkp Aichholz CORRECTIONAL SECURITY OFFICER Work Phone: noms CWM FMComment on above:Restless leg syndrome Start: 11-18-2024 End: 65-26-3276Npczhrx encounter Denice Mac MD-[facility] Work Phone: Start: 11-18-2024 End: 52-24-7091ncbxzyjzprVxwr J Aichholz Work Phone: [facility] Work Phone: Start: 11-17-2024 End: 16-23-8057Nbrodvozg Result EncounterGeneric External Data ProviderNOMS External Department UnsolicitedStart: 11-17-2024 End: 44-69-7146Aqpppxtef Result EncounterGeneric External Data ProviderNOMS External Department UnsolicitedStart: 11-11-2024 End: 94-55-7753UxkracOqql Aichholz CORRECTIONAL SECURITY OFFICER Work Phone: noms CWM FMComment on above:Muscle spasmStart: 25-30-5312Ataxrcrsxx Judit Alonso MD- CredibleStart: 11-03-2024 End: 16-22-3921Ozpbab flowsTasha Castorena DO Work Phone: NOSV SWS FM 230Start: 11-03-2024 End: 86-75-7390Fjpghw flowsheetMarya Castorena DO Work Phone: [facility] SWS FM 230Start: 11-03-2024 End: 54-12-8618Yzyhaz outpatient visit 25 minutesMarya Castorena DO Work [...] index (BMI) of36.0 to 36.9 in adult ([facility]-HCC)Start: 11-03-2024 End: 41-11-6121kkpployuovQIMCXKK M PETZNICKNot AvailableStart: 10-16-2024 End: 52-85-7366whibjutrzdFSLQOhioHealth Grove City Methodist Hospitaltart: 10-16-2024 End: 51-87-2976Gnsydiepl for other preprocedural examinationFirelands Regional Medical Centertart: 10-07-2024 End: 73-18-6790Lfajvosgs Result EncounterGeneric External Data ProviderNOMS External Department UnsolicitedStart: 10-07-2024 End: 97-60-8807Qfeiehxvt Result EncounterGeneric External Data ProviderNOMS External Department UnsolicitedStart: 09-09-2024 End: 75-30-1966NjfnuoFjjq Aichholz CORRECTIONAL SECURITY OFFICER Work Phone: noms CWM FMComment on above:Restless leg syndrome Start: 09-03-2024 End: 27-11-4073Ttgrcrq encounter statusJanene Lew CORRECTIONAL SECURITY OFFICER Work Phone: NOMS HealthcareStart: 09-03-2024 End: 60-04-3560Abssmkat preventive med est patient 40-64yrsLisa Lew CORRECTIONAL SECURITY OFFICER Work Phone: noms CWM FMComment on above:Encounter [...] (HCC) (CMS/HCC); Mixed hyperlipidemia (CMS/HCC)Start: 09-03-2024 End: 86-96-5269dcwrntcefdXHRR RAYMONDot AvailableStart: 09-01-2024 End: 28-68-0385McfgjlZyoj Aichholz CORRECTIONAL SECURITY OFFICER Work Phone: NOCP CWM FMComment on above:Primary hypertension (CMS/HCC)Muscle spasmStart: 08-28-2024 End: 07-57-8320Butzuvbpm Result EncounterLisa Karenholz CORRECTIONAL SECURITY OFFICER Work Phone: noms External Department UnsolicitedStart: 08-28-2024 End: 58-12-0220Wbbubmdwb Result EncounterLisa Reddhholz CORRECTIONAL SECURITY OFFICER Work Phone: noms External Department UnsolicitedStart: 08-12-2024 End: 87-09-8991BosobqJrcp Reddhholz CORRECTIONAL SECURITY OFFICER Work Phone: noms CWM FMStart: 07-25-2024 End: 54-46-4608YpybchOxxa Reddhholz CORRECTIONAL SECURITY OFFICER Work Phone: NOMS CWM FMComment on above:Restless leg syndrome Start: 07-15-2024 End: 35-39-9705Tvrfgf OnlyLisa Karenholz CORRECTIONAL SECURITY OFFICER Work Phone: NOSO CWM FMComment on above:Acute foot pain, left (Primary Dx); Acute left ankle painStart: 06-16-2024 End: 42-47-2211Pqysvz flowsheetMarya Castorena DO Work Phone: [facility] SWS FM 230Start: 06-16-2024 End: 05-55-3322Fpkqvm flowsheetMarya Castorena DO Work Phone: [facility] SWS FM 230Start: 06-16-2024 End: 52-11-9275Lbsire outpatient visit 25 minutesAllronny Castorena DO Work Phone: [facility] SWS FM 230Comment on above:Class 2 severe obesity due to excess calories with serious comorbidity and body mass index (BMI) of 38.0 to 38.9 in adult ([facility]) (Primary Dx); Type 2 diabetes mellitus with other circulatory complications ([facility]); Type 2 diabetes mellitus with stage 3a chronic kidney disease, without long-term current use of insulin ([facility]) ([facility])Start: 06-16-2024 End: 28-53-5150ddzqwpzinoFYVXJRO M PETZNICKNot AvailableStart: 05-27-2024 End: 64-96-5409ZvwnicQvev Aichholz CORRECTIONAL SECURITY OFFICER Work Phone: NOTF CWM FMComment on above:Muscle spasmStart: 04-21-2024 End: 58-15-5888Ilpospshz Result EncounterGeneric External Data ProviderNOMS External Department UnsolicitedStart: 04-21-2024 End: 64-94-2688Vahygreuy Result EncounterGeneric External Data ProviderNOMS External Department UnsolicitedStart: 03-20-2024 End: 67-49-3889CniphtXxuv Aichholz CORRECTIONAL SECURITY OFFICER Work Phone: NOUO CWM FMComment on above:Restless leg syndrome Start: 03-11-2024 End: 35-98-5910bpuicrpgxwCval BakhousFacility:[facility] Start: 03-06-2024 End: 48-00-1119Yxrndmzander Lew CORRECTIONAL SECURITY OFFICER Work Phone: NOMS CWM FMStart: 03-06-2024 End: 38-22-1739Miugwl flowsheetJanene Lew CORRECTIONAL SECURITY OFFICER Work Phone: NOFX CWM FMStart: 03-06-2024 End: 57-53-7281Uhyqkf outpatient visit 25 minutesLuanne Louann CORRECTIONAL SECURITY OFFICER Work Phone: NOMS CWM FMComment on above:Primary [...] index (BMI) of45.0 to 49.9 in adult ([facility]); Bipolar affective disorder, remission status unspecified ([facility]/HCC); Generalized anxiety disorder ([facility]/HCC); Vitamin D deficiency; Vitamin B12 deficiency; H/O bariatric surgery; Acute non-recurrent pansinusitisStart: 03-06-2024 End: 27-67-2908lgvwaxaspfFOLVDhruv Nixon AvailableStart: 02-22-2024 End: 63-57-6326TqqlaiIscl Aichholz CORRECTIONAL SECURITY OFFICER Work Phone: NOJR CWM FMComment on above:Muscle spasmStart: 02-19-2024 End: 96-85-3914Abjorz outpatient visit 25 minutesMarya Castorena DO Work [...] to 49.9 in adult (CMS/HCC)Start: 02-19-2024 End: 00-51-0144aytubrgxzxLTUKESW M PETZNICKNot AvailableStart: 02-01-2024 End: 51-27-9057Aimrgwsbr Result EncounterGeneric External Data ProviderNOMS External Department UnsolicitedStart: 02-01-2024 End: 47-85-3418Plejeuzaa Result EncounterGeneric External Data ProviderNOMS External Department UnsolicitedStart: 01-14-2024 End: 43-45-5516SjvpirFuqx Aichholz CORRECTIONAL SECURITY OFFICER Work Phone: NOXH CWM FMComment on above:Primary hypertension ([facility])Start: 12-19-2023 End: 73-94-9610BjttmoLmoi Aichholz CORRECTIONAL SECURITY OFFICER Work Phone: NOMS CWM FMComment on above:Type 2 diabetes mellitus with stage 4 chronic kidney disease, without long-term current use of insulin ([facility]) (Primary Dx)Start: 12-18-2023 End: 94-61-5275Ogbyukpjx Result EncounterLisa Aichholz CORRECTIONAL SECURITY OFFICER Work Phone: noms External Department UnsolicitedStart: 12-18-2023 End: 57-47-3190Imohbpxyb Result EncounterLisa Aichholz CORRECTIONAL SECURITY OFFICER Work Phone: noms External Department UnsolicitedStart: 12-18-2023 End: 28-84-6027HujzfyTnox Aichholz CORRECTIONAL SECURITY OFFICER Work Phone: NOMS CWM FMComment on above:Restless leg syndrome Start: 12-18-2023 End: 81-44-5679ZrmnduTslp Aichholz CORRECTIONAL SECURITY OFFICER Work Phone: NOMS CWM FMComment on above:Antibiotic-induced yeast infection (Primary Dx)Start: 12-05-2023 End: 73-28-0058Itkruv flowsheetLisa Aichholz CORRECTIONAL SECURITY OFFICER Work Phone: NOMS CWM FMStart: 12-05-2023 End: 77-55-2136Btkviq flowsheetLisa Aichholz CORRECTIONAL SECURITY OFFICER Work Phone: noms CWM FMStart: 12-05-2023 End: 35-45-5433WqcfufTkzc Aichholz CORRECTIONAL SECURITY OFFICER Work Phone: noms CWM FMComment on above:Muscle spasmStart: 12-05-2023 End: 98-16-2811Ywdabk outpatient visit 25 minutesLisa Lew CORRECTIONAL SECURITY OFFICER Work Phone: noms CWM FMComment on above:Left lower quadrant abdominal pain (Primary Dx); Morbid (severe) obesity due to excess calories (CMS/HCC); Body mass index (BMI) 45.0-49.9, adult (CMS/HCC); Restless leg syndrome; Stage 3b chronic kidney disease (HCC) (CMS/HCC)Start: 12-05-2023 End: 33-93-9936wceajuclmtDNYT AICHHOLZNot AvailableStart: 11-19-2023 End: 37-47-0456rijlstywunUJHNBIC M PETZNICKNot AvailableStart: 11-12-2023 End: 38-82-9742wmxabxqthnSFNFHG CLEMENTE VNot AvailableStart: 11-01-2023 End: 78-32-2338Hytyxqatl to same day surgery centerJanene Lew Work Phone: [facility] HospitalStart: 11-01-2023 End: 36-40-1786gebrzymivyZnid J Aichholz Work Phone: [facility] Work Phone: Start: 23-33-5572Qnsrqbrelz RecurringLisa Lew Work Phone: [facility]- CredibleStart: 10-16-2023 End: 40-90-6417hcyhoitwllBqyz J Aichholz Work Phone: [facility] Work Phone: Start: 10-16-2023 End: 89-75-2322Eqpfhoi encounter procedureLisa Lew Work Phone: [facility] [address] [facility] Work Phone: Start: 00-95-4589Ygojuyetgn RecurringLisa Aichholz Work Phone: [facility]- CredibleStart: 10-11-2023 End: 85-93-7105wzpqcsdwgtTlqj J Aichholz Work Phone: [facility] Work Phone: Start: 10-11-2023 End: 80-42-8393Xnyeogw encounter procedureLisa Aichholz Work Phone: [facility]-Lab [place] Work Phone: Start: 67-23-6701Uqe-patient / Non-visitLisa Aichholz Work Phone: [facility] [address] [facility] Work Phone: Start: 10-01-2023 End: 33-12-9345Hotoruscbe and management of inpatientLisa Aichholz Work Phone: [facility]-[address] [place] [facility] Work Phone: Start: 09-28-2023 End: 12-38-7585Uuzoottyw Result EncounterLisa Aichholz CORRECTIONAL SECURITY OFFICER Work Phone: noms External Department UnsolicitedStart: 09-28-2023 End: 85-40-5121Ohwcgudip Result EncounterLisa Aichholz CORRECTIONAL SECURITY OFFICER Work Phone: noms External Department UnsolicitedStart: 09-03-2023 Registered RecurringLisa Aichholz Work Phone: [facility] CredibleStart: 08-15-2023 End: 60-04-4951Vlxhhbu encounter procedureLisa Aichholz Work Phone: [facility] [address] [facility] Work Phone: Start: 08-10-2023 End: 49-96-2823fthxzmdumlPkik J Aichholz Work Phone: [facility] Work Phone: Start: 08-10-2023 End: 50-48-8990Iqlmouc encounter procedureLisa Aichholz Work Phone: [facility]-Lab Main [place] Work Phone: Start: 06-19-2023 End: 27-62-2336Xlaucfy encounter procedureLisa Aichholz Work Phone: [facility]-Lab Main [place] Work Phone: Start: 05-25-2023 End: 97-77-0474awmpujzureWWLP A NADERERFacility:[facility] HospitalStart: 05-17-2023 End: 51-14-7197qjamwwfygtWekt J Aichholz Work Phone: [facility] Work Phone: Start: 05-17-2023 End: 23-53-9703Altxtwy encounter procedureLisa Aichholz Work Phone: [facility]-Lab Main [place] Work Phone: Start: 05-10-2023 End: 51-30-2103Wmspyurlx Result EncounterGeneric External Data ProviderNOMS External Department UnsolicitedStart: 05-10-2023 End: 29-32-7823Heaufwajl Result EncounterGeneric External Data ProviderNOMS External Department UnsolicitedStart: 27-24-9282Dxdaddtynj RecurringLisa Aichholz Work Phone: [facility]- CredibleStart: 11-29-2022 End: 77-94-7065qjarmszrluEhxk Bakhous Other [facility] Other Start: 72-83-3937Tpiclzpnv encounterAziz BakcarmelFPG NephrologyStart: 09-18-2022 End: 56-56-7166kfcsjwgjvpGtbnoo Latrell Other [employer] Other Start: 66-30-6841Fdgskpdrc encounterSherying SamsFPG Pain ManagementStart: 09-07-2022 End: 24-66-4088orvluzceypLGK JANENE LOUANNFacility:O6Qgivt: 08-14-2022 End: 68-19-9583zukkxjouwpPutdsy Latrell Other [facility] Other Start: 55-87-9530Awrzls outpatient visit 25 minutes Ivan SamsFPG Pain ManagementStart: 07-03-2022 End: 67-91-1517czhdpwmxyoIywpgg Latrell Other [facility] [employer] Other Start: 42-72-5360Ynwihr consultation new/estab patient 60 minSlan SamsFPG Pain ManagementStart: 06-24-2022 End: 01-37-1756Kpvdmpacy department patient visitLuanne Reddangierufus Work Phone: [facility]-Emergency Room Work Phone: Start: 06-08-2022 End: 69-50-3037upuvykhbbyCPB JANENE AICHHOLZFacility:G4Rcvzz: 05-29-2022 End: 71-05-8605nofapygyeiRCC JANENE AICHHOLZFacility:X3Ohiaw: 50-09-1608twjmkrfoso FLOWER GROWER JANENE AICHHOLZFacility:X7Eazxl: 05-12-2022 End: 80-74-6660hftpwkpwsdHxhc Alfonso Other [facility] [employer] Other start: 34-86-1338Strngd outpatient visit 15 minutes Christian Nino [facility] NeurosurgeryStart: 04-25-2022 End: 98-50-3684wpdzfftsfvMwvq Bakhous Other [place] [employer] Other Start: 39-04-1527Ccmszn outpatient new 30 minutesAzaurelia MacFPG Nephrology ClydeStart: 03-29-2022 End: 98-06-7234bgwcclmfasNUU JANENE AICSAULOFacility:A8Uxvwr: 03-23-2022 End: 71-82-4794fjuccfgbaqCKX JANENE AICHHOLZFacility:S2Qkvlw: 02-19-2022 End: 89-42-6101igspspjezwOUZ JANENE AICHHOLZFacility:N6Whtdl: 02-16-2022 End: 90-09-9991vlrhtdbllgCV MYRIAM PERRIN .Facility:Y3Ezyhi: 60-13-7783ghilexznsuEVF JANENE AICLULZFacility:L8Vxnjm: 01-25-2022 End: 72-65-3459Zcrismf encounter procedureLisa Lew Work Phone: [facility]-Sleep LabStart: 01-25-2022 End: 57-03-7299fbnvvvjcoyJkve J Louann Work Phone: [facility] Work Phone: Start: 39-38-3518Xqrafa outpatient visit 25 minutes Emma [facility] SouthStart: 01-25-2022 End: 12-18-4663wglonfsfcfZGW JANENE AICHHOLZFacility:Y0Qymbw: 01-23-2022 End: 70-69-1424hndllqrxvlVJP JANENE AICHHOLZFacility:N4Cnxux: 01-12-2022 End: 62-84-3790wjsviqkrhaYFW JANENE AICHHOLZFacility:E0Ngzri: 12-21-2021 End: 71-88-8527wxmmlxwxlgGYE JANENE AICHHOLZFacility:E8Qbmqz: 12-06-2021 End: 82-66-4991frgzestjsvSrjf Braun Other [employer] Other start: 00-67-1701Hyfkuv outpatient visit 15 minutes Christian [facility]St[facility] NeurosurgeryStart: 11-30-2021 End: 72-36-3484dagewomduxGFM JANENE LOUANNFacility:X2Svvon: 11-28-2021 End: 30-32-1687uojslmpuwqKGW JANENE LOUANNFacility:B5Rlfjn: 11-14-2021 End: 87-00-3241tnebjlldffPqxt J Aicholz Work Phone: [facility] Work Phone: Start: 11-14-2021 End: 99-47-5470Jyjnpoirgg RecurringLisa [facility]z Work Phone: [facility]-Physical Therapy CastaliaStart: 11-10-2021 End: 93-47-5781runusmgvdpZvyk Hamilton Other [employer] Other start: 15-97-0266Emjgal follow up visit related to original pxDale [facility] NeurosurgeryStart: 10-28-2021 End: 48-02-4431kuatlfxhraHNH JANENE LOUANNFacility:T8Dfphx: 10-02-2021 End: 38-50-1500rexroshtudHMF JANENE LOUANNFacility:V4Kcviu: 09-29-2021 End: 38-89-7320flrziafudbIweh Hamilton Other [employer] Other start: 65-86-6170Ofxjvd follow up visit related to original pxDale [facility] NeurosurgeryStart: 08-30-2021 End: 29-56-0304vpfbtjgfyrIbgh Hamilton Other [employer] Other start: 99-84-1394Hscuon follow up visit related to original pxDale [facility] NeurosurgeryStart: 47-60-7092Ibeknxmxv to same day surgery centerDale [facility] CtrStart: 08-12-2021 End: 44-14-2948jumtbqcqghOdpc Braun Other [place] Other start: 08-23-2018 End: 55-42-0524Acpeksixwo and management of inpatientSnaa Merino Facility:[facility] Procedures DateProcedureProcedure DetailPerforming ClinicianStart: 02-05-2025 End: 54-19-7129Vvwgpxsmoousn of current medicationsJoshua Petersen DMD Work Phone: Start: 02-05-2025 End: 48-73-5720tamq hygiene instructionsJoshua Petersen DMD Work Phone: Start: 02-05-2025 End: 57-15-5811cjbnd-based composite - two surfaces, posteriorKjose Petersen DMD Work Phone: Start: 12-30-2024 End: 19-56-6385ddct buildup, including any pins when requiredJoshua Petersen DMD Work Phone: Start: 12-30-2024 End: 42-24-3894Ksgzbjlasrzaw of current medicationsJoshua Petersen DMD Work Phone: Start: 12-30-2024 End: 25-76-7744cnucfkecup therapy, anterior tooth (excluding final restorationism) Joshua Petersen DMD Work Phone: Start: 12-30-2024 End: 16-55-7358nrlm hygiene instructionsJoshua Petersen DMD Work Phone: Start: 28-24-6868BQF CBC WITH AUTO DIFFGeneric External Data ProviderStart: 12-02-2024 End: 04-63-0818OuyoyxXqdss Kanani DMD Work Phone: Start: 12-02-2024 End: 89-96-1349ikshlmbdt - four radiographic imagesJoshua Petersen DMD Work Phone: Start: 12-02-2024 End: 17-43-2356Ptrjjj of stomachJoshua Petersen DMD Work Phone: Start: 12-02-2024 End: 38-75-6942Yjolqoeapfhgp of current medicationsJoshua Petersen DMD Work Phone: Start: 12-02-2024 End: 15-77-4571dfylgfaaug, erupted tooth or exposed root (elevation and/or forceps removal)Joshua Petersen DMD Work Phone: Start: 12-02-2024 End: 52-81-8502dpqqmqbix - periapical each additional radiographic imageJoshua Petersen DMD Work Phone: Start: 12-02-2024 End: 07-89-3645lqljtuivr - periapical first radiographic imageJoshua Petersen DMD Work Phone: Start: 12-02-2024 End: 74-35-2065wrbk hygiene instructionsJoshua Petersen DMD Work Phone: Start: 09-02-7340EZ ROZ PERF SPECT REST STRGeneric External Data ProviderStart: 07-20-7814Ytmjpeqqcx glycosylated Yumiko Castorena DO Work Phone: Start: 26-14-5754CK CHEST 2VGeneric External Data ProviderStart: 21-44-6003KHG CBC WITH AUTO DIFFGeneric External Data Provider Start: 92-37-4131LHJ 12-LEADGeneric External Data ProviderStart: 04-57-1285Tfsoo hip unilateral with pelvis 2-3 viewsGeneric External Data ProviderStart: 45-16-4832OKN CBC WITH AUTO DIFFLisa Aichholz CORRECTIONAL SECURITY OFFICER Work Phone: Start: 66-84-0700Qdezcvfmab glycosylated Yumiko Castorena DO Work Phone: Start: 47-92-2330DW LUMBAR SPINE MIN 4VGeneric External Data ProviderStart: 73-89-9752Pkbjwpkhln glycosylated Yumiko Castorena DO Work Phone: start: 54-31-2657DR LUMBAR SPINE WO CONGeneric External Data ProviderStart: 16-76-1045QHO CBC WITH AUTO DIFFLisa Reddsaulo CORRECTIONAL SECURITY OFFICER Work Phone: Start: 11-01-2023 End: 95-48-4613FvjqxowobtdBpiz Emiz Work Phone: Start: 60-58-6882WK TOMOSYNTHESIS SCREENING BILisa Louann CORRECTIONAL SECURITY OFFICER Work Phone: Start: 73-91-1685JsgoqbgatpiQlnk Louann CORRECTIONAL SECURITY OFFICER Work Phone: Start: 65-13-3956Stllxsn of percutaneous transluminal coronary angioplastyHistory of PTCALisa Louann CORRECTIONAL SECURITY OFFICER Work Phone: Start: 91-42-5925Zfoym cultureLisa Emiz Work Phone: Start: 94-73-8806IW ECHO DOPPLER COMPLETEGeneric External Data ProviderStart: 80-03-6246KDAOSELOGWW OF MULTIPLE CORONARY ARTERIES USING OTH CONTRASTEHAB A ELTAHAWYStart: 50-48-0232Onbniygeyba observation [Identifier] in Cervix by Cyto stainJanene Lew CORRECTIONAL SECURITY OFFICER Work Phone: History of percutaneous transluminal coronary angioplastyHistory of PTCALisa Karenholz Work Phone: Plan of Treatment DateCare ActivityDetailAuthorStart: 28-18-9288Mbnsjaeqz for malignant neoplasm of colonNOMS HealthcareStart: 28-54-5940Ilzbvnub screeningDiabetes: Retinopathy ScreeningNOMS HealthcareStart: 37-22-6849Yrdbj screening for proteinDiabetes: Urine Protein ScreeningNOMS HealthcareStart: 05-05-2025 End: 31-21-7474Bzdcbbw encounter procedureNOMS S[facility] FM 230Start: 03-19-2025 [facility] Work Phone: Start: 65-68-5087HtdvsgMercy Regional Medical Center Work Phone: Start: 55-59-3967Tgmxwbd management education, guidance, and counselingDietary management education, guidance, and counseling [facility] Centertart: 23-35-4278AyvdSoutheast [facility] Hospital Work Phone: Start: 35-39-5092Jnxziyxcku A1c measurementDiabetes: Hemoglobin Z4TWRCX HealthcareStart: 19-75-0547PkqpnfDenver Springs Work Phone: Start: 84-80-4592MsxpSoutheast Colorado Hospital Work Phone: Start: 55-90-0396RexqymDenver Springs Work Phone: Start: 12-16-2024 End: 40-55-2000Zorawoa encounter wmqwrmfuy93/02/2025 8:30 AM EDT Office Visit [facility] [address] [place] [address] Janene Lew, CORRECTIONAL SECURITY OFFICER [address] [place] [address] [facility] FMStart: 71-15-0910YDVSK-19 Vaccine ( season)COVID-19 Vaccine ( season)NOMS HealthcareStart: 12-15-2024 Influenza vaccinationInfluenza Vaccine (#1)[facility] HealthcareStart: 12-04-2024 End: 76-88-0237Ifygscd encounter bhndsxrji66/21/2025 8:40 AM EDT Office Visit [facility] [address] [place] [address] Janene Lew, CORRECTIONAL SECURITY OFFICER [address] [place] [address] [facility] FMStart: 74-03-5106Homkylr management education, guidance, and counselingDietary management education, guidance, and counseling [facility] Centertart: 12-02-2024 End: 89-08-2915BiruSoutheast Colorado Hospital Work Phone: Start: 11-03-2024 End: 50-99-6437Jlqczao encounter procedureNOMS [facility] FM 230Comment on above: ArrivedStart: 10-20-2024 End: 35-11-4927Yxpqpbn encounter zxgthyzzc99/07/2025 10:30 AM EDT Office Visit [facility] FM [address] [place] [address] Marya Castorena DO [address] [place] [address] [facility] 230Start: 10-04-2024 End: 47-70-8616DY Breast - bilateral ScreeningBilateral screening mammogram Imaging Routine Encounter for screening mammogram for malignant neoplasm of breast Expected: 10/04/2024 (Approximate), Expires: 11/03/2025[facility] Work Phone: Comment on above:Expected: 10/04/2024 (Approximate), Expires: 11/03/2025Start: 10-13-4633Qnbfqjitb for malignant neoplasm of breast MammogramNOOH HealthcareStart: 31-25-0869Vjgelguqhs A1c measurementDiabetes: Hemoglobin M3UYNUY HealthcareStart: 09-03-2024 End: 16-58-9203Yixyxhn encounter qlucvnwpu30/21/2025 9:40 AM EDT Office Visit [facility] [address] [place] [address] Janene Lew NP [address] [place] [address] [facility]S C[facility] FMStart: 07-15-2024 End: 45-23-4919EG Ankle - left 3 ViewsXR ankle 3+ views left Imaging Routine Acute left ankle pain Expected: 07/15/2024, Expires: 07/15/2025[facility] Work Phone: Comment on above:Expected: 07/15/2024, Expires: 07/15/2025Start: 07-15-2024 End: 49-24-4578IP Foot - left 3 ViewsXR foot 3+ views left Imaging Routine Acute foot pain, left Expected: 07/15/2024, Expires: 07/15/2025NOOH HealthcareComment on above:Expected: 07/15/2024, Expires: 07/15/2025Start: 06-19-2024 End: 64-05-4815Qdjxboj encounter fjupmebht28/06/2025 10:15 AM EST Office Visit [facility] [address] [place] [address] Marya Castorena, DO [address] [place] [address] [facility] 230Start: 06-16-2024 End: 63-38-6395Iocwlfa encounter /03/2025 9:15 AM EST Office Visit [facility] [address] [place] [phone] Marya Castorena, DO [address] [place] [address] [facility] 230Comment on above:ArrivedStart: 83-87-1515Awlaxrvyqe A1c measurementDiabetes: Hemoglobin I4QPDADCass Medical Center Start: 46-22-8655Chhmz screening for proteinDiabetes: Urine Protein Screening [facility] HealthcareStart: 03-06-2024 End: 440993-pcontyakhpczmj D3 [Mass/volume] in Serum or PlasmaVitamin D 25 hydroxy Lab Routine Vitamin D deficiency Expected: 03/06/2024 (Approximate), Expires: 03/06/2025[facility] HealthcareComment on above:Expected: 03/06/2024 (Approximate), Expires: 03/06/2025Start: 03-06-2024 End: 46-15-4404XFG W Auto Differential panel - BloodCBC and differential Lab Routine Coronary arteriosclerosis (CMS/HCC) Stage 3b chronic kidney disease (HCC) (CMS/HCC) Expected: 03/06/2024 (Approximate), Expires: 03/06/2025[facility] Healthcare Work Phone: Comment on above:Expected: 03/06/2024 (Approximate), Expires: 03/06/2025Start: 03-06-2024 End: 93-99-2179Tuznugwur (Vitamin B12) [Mass/volume] in Serum or PlasmaVitamin B12 Lab Routine Vitamin B12 deficiency Expected: 03/06/2024 (Approximate), Expires: 03/06/2025[facility] HealthcareComment on above:Expected: 03/06/2024 (Approximate), Expires: 03/06/2025Start: 03-06-2024 End: 02-99-2354Knmwthgfadpyk metabolic 2000 panel - Serum or PlasmaComprehensive metabolic panel Lab Routine Primary hypertension (CMS/HCC) Coronary arteriosclerosis ([facility]/HCC) Stage 3b chronic kidney disease (HCC) ([facility]) Lower extremity edema Class 3 severe obesity due to excess calories with serious comorbidity and body mass index (BMI) of 45.0 to 49.9 in adult (CMS/HCC) Vitamin D deficiency Expected: 03/06/2024 (Approximate), Expires: 03/06/2025[facility] HealthcareComment on above:Expected: 03/06/2024 (Approximate), Expires: 03/06/2025Start: 03-06-2024 End: 11-01-7334Yheolagt [Mass/volume] in Serum or PlasmaFerritin Lab Routine H/O bariatric surgery Expected: 03/06/2024 (Approximate), Expires: 03/06/2025[facility] HealthcareComment on above:Expected: 03/06/2024 (Approximate), Expires: 03/06/2025Start: 03-06-2024 End: 35-86-5161Htaf and Iron binding capacity panel - Serum or PlasmaIron level Lab Routine H/O bariatric surgery Expected: 03/06/2024 (Approximate), Expires: 03/06/2025[facility] HealthcareComment on above:Expected: 03/06/2024 (Approximate), Expires: 03/06/2025Start: 03-06-2024 End: 88-46-8869Nirba 1996 panel - Serum or PlasmaLipid panel Lab Routine Coronary arteriosclerosis (CMS/HCC) Expected: 03/06/2024 (Approximate), Expires: 03/06/2025[facility] HealthcareComment on above:Expected: 03/06/2024 (Approximate), Expires: 03/06/2025Start: 03-06-2024 End: 00-76-1144Oyncmjdfeyqm/Creatinine panel in random UrineMicroalbumin / creatinine, urine ratio Lab Routine Primary hypertension (CMS/HCC) Stage 3b chronic kidney disease (HCC) (CMS/HCC) Expected: 03/06/2024 (Approximate), Expires: 03/06/2025[facility] HealthcareComment on above:Expected: 03/06/2024 (Approximate), Expires: 03/06/2025Start: 03-06-2024 End: 04-69-4377Basyppaoem complete panel - UrineUrinalysis with reflex microscopic (clean catch) Lab Routine Primary hypertension (CMS/HCC) Stage 3b chronic kidney disease (HCC) (CMS/HCC) Expected: 03/06/2024 (Approximate), Expires: 03/06/2025[facility] HealthcareComment on above:Expected: 03/06/2024 (Approximate), Expires: 03/06/2025Start: 03-06-2024 End: 58-95-2890Nxobjxt encounter procedureNOMS CWM FMComment on above:Spinal stenosis [...] B12 deficiency; H/O bariatric surgeryStart: 02-19-2024 End: 36-74-9228Wwmpmgt encounter senumengr78/05/2024 9:30 AM EST Office Visit [facility] [address] [place] [phone] Marya Castorena DO [address] [place] [address] [facility] FM 230Start: 38-09-6600Ausodaypk vaccination Influenza Vaccine (#1)[facility] HealthcareComment on above:Postponed from 12/16/2023 (Patient Does Not Have Time)Start: 01-08-9704Cxxqrvlwmr A1c measurementDiabetes: Hemoglobin S0LISHQ HealthcareStart: 12-05-2023 End: 05-77-6788Gimut metabolic 1998 panel - Serum or PlasmaBasic metabolic panel Lab Routine Left lower quadrant abdominal pain Expected: 12/05/2023 (Approxima te), Expires: 12/04/2024N[facility] HealthcareComment on above:Expected: 12/05/2023 (Approximate), Expires: 12/04/2024Start: 12-05-2023 End: 77-91-5302DGL W Auto Differential panel - BloodCBC and differential Lab Routine Left lower quadrant abdominal pain Expected: 12/05/2023 (Approximate), Expires: 12/04/2024[facility] HealthcareComment on above:Expected: 12/05/2023 (Approximate), Expires: 12/04/2024Start: 12-05-2023 End: 67-35-9281XN Abdomen Single viewXR ABDOMEN 2 VIEW Imaging Routine Left lower quadrant abdominal pain Expected: 12/05/2023, Expires:12/04/2024[facility] Work Phone: Comment on above:Expected: 12/05/2023, Expires: 12/04/2024Start: 12-05-2023 End: 81-00-7406Nfzkdui encounter xgboxfqes12/21/2024 8:40 AM EDT Office Visit [facility] [address] [place] [address] Janene Lew NP [address] [place] [address] Morbid (severe) obesity due to excess calories (CMS/HCC); Body mass index (BMI) 45.0-49.9, adult (CMS/HCC)[facility] FMComment on above: Morbid (severe) obesity due to excess calories (CMS/HCC); Body mass index (BMI) 45.0-49.9, adult (CMS/HCC)Start: 55-59-6819AzbuhbcyrOur Lady of Mercy Hospital - Andersontart: 13-68-0475BiwwrqhhpOur Lady of Mercy Hospital - Andersontart: 95-63-5470Wvoxgvbe to nephrologistOur Lady of Mercy Hospital - Andersontart: 83-68-3245Tgdizbwd admissionOur Lady of Mercy Hospital - Andersontart: 05-17-2023 Bacteria identified in Urine by CultureOur Lady of Mercy Hospital - Andersontart: 49-15-4123QGxA/Tdap/Td Vaccines (2 - Td or Tdap)DTaP/Tdap/Td Vaccines (2 - Td or Tdap)[facility] HealthcareStart: 95-63-1993Ouqpvehwd for malignant neoplasm of cervix Pap SmearINTER[facility] HealthcareStart: 73-79-3491Dbjyscxan for malignant neoplasm of cervixHPV/CotestNOMS HealthcareStart: 61-98-3051RNO Vaccines (1 of 1 - Standard series)MMR Vaccines (1 of 1 - Standard series)[facility] CenterStart: 1970 Screening for malignant neoplasm of colonNOOH Healthcare Breast - bilateral ScreeningSt. Rita'S HospitalPatient EducationAdena [facility]tr Work Phone: Patient referralLicking Memorial Hospital Work Phone: Renal function 1999 panel - Serum or PlasmaSt. Rita'S HospitalRenal function 1999 panel - Serum or PlasmaSt. Rita'S HospitalRenal function 1999 panel - Serum or [facility] Immunizations Immunization DateImmunizationNotesCare WidfbfliGegvkkfq19-16-1978BMYQ-RHG-0 (COVID-19) vaccine, mRNA, spike protein, LNP, PF, saravanan-sucrose, 30 mcg/0.3 mL Marya Petznick DO Work Phone: NOHermann Area District HospitalQtuxbroavu96-16-1223Gfaygaig, trivalent, recombinant, injectable influenza vaccine, preservative freeAllison Petznick DO Work Phone: NOHermann Area District HospitalYthetmggkw37-01-7275uunhlvsnf virus vaccine, unspecified formulationAllison Petznick DO Work Phone: NOHermann Area District HospitalXgrtqniykg34-56-3547hmyxrnlie, injectable, quadrivalent, preservative freeLisa Aichholz CORRECTIONAL SECURITY OFFICER Work Phone: [facility] CenterTnenejqzvy88-23-7064gyvuxldta virus vaccine, unspecified formulationLisa Aichholz CORRECTIONAL SECURITY OFFICER Work Phone: [facility] CenterRtohbhmgeb18-95-2382lldovmykz A and hepatitis B vaccineLisa Aichholz CORRECTIONAL SECURITY OFFICER Work Phone: [facility] CenterGgdehetyqo30-32-3759glejvl vaccine recombinant Janene Aichholz CORRECTIONAL SECURITY OFFICER Work Phone: [facility] CenterSlcrgrxwjb21-81-8409qjolroxhj A and hepatitis B vaccineLisa Aichholz CORRECTIONAL SECURITY OFFICER Work Phone: [facility] CenterSqdythsymx97-04-8874ralfhekhm A and hepatitis B vaccineLisa Aichholz CORRECTIONAL SECURITY OFFICER Work Phone: [facility] CenterEjmqjyamab13-41-2483bvkcaesvs, injectable, quadrivalent, preservative freeLisa Aichholz CORRECTIONAL SECURITY OFFICER Work Phone: [facility] CenterYrplqnzvcr24-90-8008purpjaw toxoid, reduced diphtheria toxoid, and acellular pertussis vaccine, adsorbedLisa Aichholz CORRECTIONAL SECURITY OFFICER Work Phone: [facility] CenterZlhcddbwms72-90-2917yhhnuz vaccine recombinant Janene Aichholz CORRECTIONAL SECURITY OFFICER Work Phone: [facility] CenterKhqhsymsij61-20-0757QIIQG-66 mRNA, Comirnaty (Pfizer)Janene Aichholz Work Phone: [facility]01-31-2022Pfizer Purple Cap SARS-CoV-2 VaccinationLisa Aichholz CORRECTIONAL SECURITY OFFICER Work Phone: [phone] [place], [place] [address]Rplubqzhtt21-07-9931MMGUF-42 mRNA, Comirnaty (Pfizer)Janene Aichholz Work Phone: [phone] [place], [place] 6505405-04-2021Pfizer Purple Cap SARS-CoV-2 VaccinationLisa Aichholz CORRECTIONAL SECURITY OFFICER Work Phone: [phone] [place], [place] [address]Mqvnvkjurf00-59-5382CPFID-05 mRNA, Comirnaty (Pfizer)Janene Aichholz Work Phone: [phone] [place], [place] [address]11-25-2020influenza, injectable, quadrivalent, preservative freeLisa Aichholz CORRECTIONAL SECURITY OFFICER Work Phone: [phone] [place], [place] [address]Zmvkjdgshe68-41-1112bqucgwugneiz polysaccharide vaccine, 23 valentLisa Aichholz CORRECTIONAL SECURITY OFFICER Work Phone: [phone] [place], [place] [address]Zefroskaid24-85-9056ahelltgtc, seasonal, injectableLisa Aichholz CORRECTIONAL SECURITY OFFICER Work Phone: [phone] [place], [place] [address]Kseowsknlj76-89-6570tsmsrfstkevl polysaccharide vaccine, 23 valentLisa Aichholz CORRECTIONAL SECURITY OFFICER Work Phone: [phone] [place], [place] [address]Ltidjvnilj32-34-2647ropnksgfd, injectable, quadrivalent, preservative freeLisa Aichholz Work Phone: [phone] [place], [place] [address]10-18-2019influenza, injectable, quadrivalent, contains preservativeDale Hamilton Other [place] [facility] Other 11004290-18-4384mspnufupj, injectable, quadrivalent, preservative freeLisa Aichholz Work Phone: [phone] [place], [place] [address]111-30-2018influenza, injectable, quadrivalent, contains preservativeDale Hamilton Other [place] [employer] Other 10445017-32-8533skxnbatbb, injectable, quadrivalent, preservative freeLisa Aichholz CORRECTIONAL SECURITY OFFICER Work Phone: noHermann Area District HospitalFsrqomqilb70-55-2852gbwcuegrespq conjugate vaccine, 13 valentLisa Aichholz CORRECTIONAL SECURITY OFFICER Work Phone: noOH Giotybapge60-74-7779qvozlqfbksmc polysaccharide vaccine, 23 valentLisa Aichholz CORRECTIONAL SECURITY OFFICER Work Phone: noOH Healthcare Payers DatePayer CategoryPayerPolicy [id number] Health [id number] City Regional Health Care Corporation Member Subscriber Plan / Payer (Effective 2023-Present) Name: SahraNithiny Relation to Subscriber: Self Name: Sherly Humphreys Payer ID: Not on file Type: Not on file Address: [address] [place] [id number] 34-04-8554Zbftdem Health InsuranceUNWOODWINDS [place] [address].2.840.031331.1.1[id number] 27-40-5869Xptsxxr3.2.840.977372.1.13.693.2.7.3.773328.47881-36-7232Teitpab [id number]-8yn6oroipbkt32-71-5086Khnj-ame [id number] 2.16.840.4.485741.74471324-27-1904Nkbn-mvi12[id number] 2.16.840.1.883008.3.57[id number] 2.16.840.1.085947.3.57[id number] 2.16.840.1.918772.3.579.2.86199-25-6062Jqjloaq7782737 2.16.840.1.583113.3.57[id number] 2.16.840.1.015853.3.57[id number] 2.16.840.1.495546.3.579.2.58417-96-4529Esbgxmf7453668 2.16.840.1.857537.3.579.2.44723-14-4232Ihegbwr1720121 2.16.840.1.605449.3.579.2.13170-21-6517Ljochyw4160128 2.16.840.1.048219.3.579.2.54456-71-2387Taciwoq7766772 2.16.840.1.409231.3.579.2.90040-33-5640Oynavhi5220634 2.16.840.1.454319.3.579.2.52776-32-2329Dpylghk9098979 2.16.840.1.591867.3.57[id number] 2.16.840.1.656483.3.579.2.59750-22-0471Avxmptl6477836 2.16840.1.405578.3.57[id number] 2.16840.1.117656.3.579.2.68674-89-4603Rxmsnyh7825787 2.16840.1.222620.3.579.2.92411-04-8767Gwhlukb8746092 2.840.1.445945.3.579.2.53827-70-4308Eewegnr8228617 2.840.1.131408.3.57[id number] 2.840.1.060167.3.579.2.44667-01-8100Taoaqqi80144529 2.0.1.126283.3.579.2.056938-46-9654Gdcpjjo4091318 2.0.1.882615.3.579.2.886684-61-3341Rxejzil1066377 2..1.052172.3.579.2.364104-80-2898Cdgbjqx9914009 2.0.1.839377.3.579.2.687173-48-6166Dkzvubp6887668 2..1.340805.3.579.2.231219-60-1745Axgxuhp8459325 2.0.1.626214.3.579.2.347698-96-8910Ryudkpr6724192 2.0.1.041056.3.579.2.587965-82-0198Eytzjhg8893593 2.840.1.638049.3.579.2.85[id number] 2.840.1.720524.3.579.2.51561-00-8893Pooajkf31126163 2.0.1.835905.3.579.2.04626-06-4790Xkrztjw Health [id number] 2.16840.0.87288[id number] 2.0.1.834999.19Medicaid Anthem [place] [id number] Health [id number] 2.0.1.139106.19UnknownAnthem /[id number] i9ut18g9-4511-4z2h-7174-[id number] 2.0.1.155356.3.579.2.403Pgtdeiv17394747 2.0.1.170683.3.579.2.531 [id number] 2.0.1.999425.3.579.2.531 Social History DateTypeDetailFacilityUnknown if ever smokedNort [facility] Other start: 05-02-2023 End: 89-73-1683Zst Assigned At [facility] HealthcareStart: 08-12-2021 End: 21-21-5904Yygrajy smoking status NHISNever smoked tobacco (finding) [facility] CenterStart: 54-56-6909Yfh Assigned At [facility] Hospitaltart: 51-45-2998Tpegghj use and exposure Smokeless tobacco non-userNOMS HealthcareStart: 12-05-2023 End: 12-39-1108Aadniljxk beverage intakeLifetime non-drinker (finding)[facility] HealthcareStart: 05-02-2023 End: 19-62-5738Iieckbd of Social functionNOMS HealthcareWithin the last year, have you been afraid of your partner or ex-partner?NoNOMS HealthcareAre you now , , , , never or living with a partner? Never marriedNOMS HealthcareHow often to you have a drink containing alcohol? NeverNOMS HealthcareStart: 11-13-5680Qxo many standard drinks containing alcohol do you [...] money to buy more.Sometimes trueNOMS Healthcare Start: 58-81-2228Bspwijr Commentcaffeine: coffee, soda/popNOMS HealthcareStart: 86-16-7549Uct assigned at birthNot on fileNOMS HealthcareSexFemale (finding) [facility] HospitalHow hard is it for you to pay for the very basics like food, housing, medical care, and heatingHardNOMS HealthcareDo you feel stress - tense, restless, nervous, or anxious, or unable to sleep at night because yourmind is troubled all the time - these days [OSQ]To some extentNOMS Healthcare(I/We) worried whether (my/our) food would run out before (I/we) got money to buy more.Often trueNOOH HealthcareStart: 68-37-8080Yonlejh intake Alcohol Use [facility]olescentstart: 62-03-9704Uxqxjey use and exposureNon-Smoking Tobacco Use [facility] Children and Adolescentsexual OrientationStraight or heterosexualSoutheast Colorado Hospital Work Phone: Start: 28-66-5545Dkaidp identityFemalSt. Joseph Hospitaltart: 28-32-4365Urmpejrbf beverage intakeEx-drinker (finding)[facility] HealthcareNEGATED: Highlighted rowStart: NINFHistory of tobacco usePassive smokerNOMS HealthcareNEGATED: Highlighted rowStart: 36-33-8756Qefahcp smoking status NHISNever smokerSoutheast Colorado HospitalNEGATED: Highlighted rowStart: 14-42-4050Hpftsoc of tobacco useCurrent non-smokerSoutheast Colorado HospitalNEGATED: Highlighted rowStart: 12-30-2024 End: 59-41-3874Btxuxrr smoking status NHISUnknown if ever smokedSoutheast Colorado Hospital Medical Equipment Procedure CodeEquipment CodeEquipment Original TextEquipment IdentifierDatesOnce a day Use as [id number]: 07-02-2023 End: 98-80-4570Bzzw [id number]: 11-19-2023 End: 44-89-6726Xgjsldhc bg levels once a [id number]: 08-84-4674Ainaoojw bg levels once a [id number]: 11-03-2024 Goals DatePatient GoalDesired Activity/State Functional Status EdumNpgqsgqfndLbvpcqZfjjgfdl51-82-2827Rvyvp score [AUDIT-C]0 11/18/2024 5:27 PM EDT Mychart, GenericNOMS Ceujmguujv80-62-8970Pww often do you have a drink containing alcohol?Never 11/18/2024 5:27 PM EDT Mychart, Generic NeverNOMS Gxopamukse25-49-8301Zkhzgtpagl statusPatient does not drink 11/18/2024 5:27 PM EDT Mychart, Generic Patient does not drinkCass [facility] CenterJkyibuaonz87-72-0755Pwa often do you have 6 or more drinks on 1 occasion?Never 11/18/2024 5:27 PM EDT Mychart, Generic NeverNOMS Kyqoysdjau11-38-6842Oczihtv Health Questionnaire 2 item (PHQ- 2) [Reported][facility] CenterKjapjgpccb25-99-0350Bcilufg Health Questionnaire 2 item (PHQ- 2) [Reported][facility] CenterItwiaoszri42-03-3127Wvkmbyp Health Questionnaire 2 item (PHQ- 2) [Reported][facility] CenterCrdkzvclez50-91-0977Jyrznlsgug statusPatient at [facility] Work Phone: 1(502) 277-481605-30-2024How difficult have these problems made it for you to do your work, take care of things at home, or get along with other people?Not difficult at all 09/13/2023 9:03 AM Lili Enriquez MA [facility] HospitalXuwzqskymd21-23-3823Nostxoq Health Questionnaire 2 item (PHQ-2) [Reported][facility] Mental Status Gj[id number] functionCognitive Status [facility]: Clinical Notes 08-30-2021 to 02-05-2025 Note Date & [id number] Evaluation note* Type Assessment Date assessment Body mass index [BMI] 40.0-44.9, adult [facility] Work Phone: [phone] 358-342410-23-2025 History of Present illness Narrative* Encounter Date Complaint History Of Prese nt Illness fill fill [facility] Work Phone: [phone] 124-291210-23-2025 Instructions* Date Instruction Additional Infor elio Dietary management e ducation, guidance, and counseling Related to Body mass index [BMI] 40.0-44.9, adult [facility] Work Phone: 1([phone] 146-520109-16-2025 History of Present illness Narrative* Encounter Date Complaint History Of Prese nt Illness Endo Endo [facility] Work Phone: 1([phone] 200-256808-29-2025 Note- proceed with coronary angiogram, discussed risks including stroke, VT, . Patient agreeable to proceed. No associated orders from this encounter found during lookback period of 72 hours.[facility]08-19-2025 Evaluation note* Type Assessment Date assessment Body mass index [BMI] 39.0-39.9, adult [facility] Work Phone: 1([phone] 258-292908-19-2025 History of Present illness Narrative* Encounter Date Complaint History Of Prese nt Illness Periodic exam periodic exam [facility] Work Phone: [phone] 494-599708-19-2025 Instructions* Date Instruction Additional Infor matelizabeth Dietary management e ducation, guidance, and counseling Related to Body mass index [BMI] 39.0-39.9, adult [facility] Work Phone: [phone] 859-721608-13-2025 Evaluation note* Diagnosis Onset Date Resolution Status [...] 8:42amStage 3b chronic kidney diseaseacuteSeptember 2024 8:42am [facility] Work Phone: [phone] 499-611908-13-2025 Evaluation note* Diagnosis Onset Date Resolution Status [...] 9:08amStage 3b chronic kidney diseaseacuteOctober 2024 9:08am [facility] Work Phone: [phone] 716-819207-21-2025 History of Present illness Narrative* Marya Castorena, [...] index (BMI) of36.0 to 36.9 in adult ([facility]) Type 2 diabetes mellitus with other circulatory complications ([facility]) Acute foot pain, left Acute left ankle [...] q7 days SC (7.5 MG/0.5ML SOAJ) Labs [facility] HEMOGLOBIN A1C/HEMOGLOBIN.TOTAL:MFR:PT:BLD:QN: 5.2 Outpatient prescription The ASCVD [...] disease, without long-term current use of insulin ([facility]) During the appointment today all [...] index (BMI) of36.0 to 36.9 in adult ([facility]) Type 2 diabetes mellitus with other circulatory complications ([facility]) - Primary Other Visit Diagnoses Type 2 diabetes mellitus with stage 4 chronic kidney disease, without long-term current use of insulin (HCC) Type 2 diabetes mellitus without complication, without long-term current use of insulin ([facility]) Relevant Medications Blood Glucose Monitoring Suppl (True [...] in leg swelling. LANCETS (ONETOUCH DELICA PLUS [id number]) [facility] bid I have reviewed and reconciled the history and medication list with the patient today. documented in this encounterCass Medical [id number] [facility] Chief Complaint: Patient is here today for surgery clearance. Patient states they found a problem while doing her pre op testing. Patient states she has no idea what they found and was told to see her garnett feeder. Patient complains of GARNER with walking really [...] Disp: , Rfl: sacubitril-valsartan (more content not included)...[facility]05-21-2025 History of Present illness Narrative* LILI ASKEW [...] in the last year: no Specialist: Shalini, [facility] Cardiology, Amaury, Dr Huffman HCPOA/Living [...] improvement. Hypertensive end-organ damage includes kidney disease, CAD/VT and heart failure. There is no history [...] 30 mg, Daily Lancets (OneTouch Delica Plus [id number]) misc Fsbs bid metoprolol succinate XL (TOPROL-XL) [...] Clostridioides difficile diarrhea 07/02/2023 Coronary arteriosclerosis ([facility]) 04/30/2023 COVID-19 Degenerative disc disease, [...] Nephrolithiasis 07/02/2023 URIEL (obstructive sleep apnea) 04/30/2023 [id number] condition Restless leg syndrome Seasonal allergies 04/30/2023 [...] Problem List Items Addressed This Visit Hypertension ([facility]) Please check blood pressure daily [...] long-term current use of insulin (HCC) ([facility]) Check blood sugars daily, notify [...] Pt is managed by dr castorena Hyperlipidemia ([facility]) On statin therapy as well as fenofibrate Check labs yearly and prn dose changes Encounter for screening mammogram for malignant neoplasm of breast Relevant Orders Bilateral screening mammogram Chronic diastolic heart failure ([facility]) Follows with cardiology Current meds: statin, lasix, entresto, b seema, and amlodipine Recommend daily weight, limit sodium, if weight increases by more than 3 pounds in 24 hours notify cardiology Stage 3b chronic kidney disease (HCC) ([facility]) Is established with nephrology for mgmt/monitoring Continue to keep blood pressure and DM at goal Class 2 severe obesity due to excess calories with serious comorbidity and body mass index (BMI) of38.0 to 38.9 in adult ([facility]) Discussed with patient their BMI (actual, verses [...] - 09/03/2024 6:39 AM EDTAssociated Problem(s): Hyperlipidemia ([facility]) On statin therapy as well as fenofibrate Check labs yearly and prn dose changes * Janene Lew NP - 09/03/2024 6:39 AM EDTAssociated Problem(s): Type 2 diabetes mellitus with stage 3a chronic kidney disease, without long-term current use of insulin ([facility]) ([facility]) Check blood sugars daily, notify [...] of 38.0 to 38.9 in adult ([facility]) Discussed with patient their BMI (actual, verses [...] ASA, statin, b seema documented in this encounterCass Medical [id number] Instructions* Patient Instructions* Janene Lew NP - 09/03/2024 9:[address] Rebolledo if we should change to Vit D2 once a week No other changes in meds or doses documented in this encounterCass Medical [id number] History of Present illness Narrative* Janene Lew NP - 07/15/2024 12:19 PM EDT Contact provider, had a fall the other day on porch, now left ankle and foot pain, would like an xray documented in this encounterCass Medical [id number] History of Present illness Narrative* Marya Castorena DO - 06/16/2024 9:36 AM ESTAssociated Problem(s): Type 2 diabetes mellitus with other circulatory complications ([facility]) During the appointment today all [...] mg Weekly SC (7.5 MG/0.5ML SOAJ) Labs [facility] HEMOGLOBIN A1C/HEMOGLOBIN.TOTAL:MFR:PT:BLD:QN: 5.5 Outpatient prescription The ASCVD [...] disease, without long-term current use of insulin ([facility]) ([facility]) Relevant Orders POCT glycosylated hemoglobin (Hb A1C) docked device (Completed) Class 2 severe obesity due to excess calories with serious comorbidity and body mass index (BMI) of38.0 to 38.9 in adult ([facility]) - Primary Type 2 diabetes mellitus with other circulatory complications ([facility]) During the appointment today all [...] morning. Do not crush or chew.. LANCETS (SynedgenTOUCH DELICA PLUS [id number]) [facility] Fsbs bid METOPROLOL SUCCINATE XL (TOPROL-XL) 12.5 [...] with the patient today. documented in this [facility]11-21-2024 History of Present illness Narrative* [...] the original note were not included. Sherly Humphresy is a 53 y.o. female presents with [...] problems. Hypertensive end-organ damage includes kidney disease, CAD/VT and heart failure. Identifiable causes of hypertension [...] mononitrate ER (IMDUR) 30 mg, Daily Lancets ([employer] Delica Plus [id number]) misc Fsbs bid metoprolol succinate XL (TOPROL-XL) [...] Clostridioides difficile diarrhea 07/02/2023 Coronary arteriosclerosis ([facility]) 04/30/2023 COVID-19 Degenerative disc disease, [...] herniation 07/02/2023 Microscopic hematuria 04/30/2023 Migraine headache ([facility]) 04/30/2023 Myalgia Nephrolithiasis 07/02/2023 URIEL (obstructive sleep apnea) 04/30/2023 [id number]-17 condition Restless leg syndrome Seasonal allergies 04/30/2023 Spinal stenosis of lumbar region at multiple levels 04/30/2023 Spinal stenosis of thoracolumbar region 04/30/2023 Stage 3 chronic kidney disease due to type 2 diabetes mellitus (HCC) ([facility]) 04/30/2023 Swelling of both lower extremities 04/30/2023 [...] and they will give new mask Hypertension ([facility]) - Primary Please check blood pressure daily and record DASH diet Limit caffeine Take medication as directed Contact office if chest pain, pressure, dizziness, shortness of breath, swelling legs Recommend slow position changes Continue current meds Cont ASA, statin, b seema Relevant Orders Comprehensive metabolic panel Urinalysis with reflex microscopic (clean catch) Microalbumin / creatinine, urine ratio Coronary arteriosclerosis ([facility]) Relevant Orders CBC and differential [...] long-term current use of insulin (HCC) ([facility]) Check blood sugars daily, notify [...] Relevant Orders Iron level Ferritin Bipolar disorder ([facility]) Continue with psych for management of her mental health Generalized anxiety disorder ([facility]) Continue with psych for management of symptoms and meds Stage 3b chronic kidney disease (HCC) ([facility]) Is established with nephrology for [...] index (BMI) of45.0 to 49.9 in adult ([facility]) Has lost approx 64 pounds [...] 6:47 AM ESTAssociated Problem(s): Generalized anxiety disorder ([facility]/HCC) Continue with psych for management of symptoms and meds * Janene Lew NP - 03/06/2024 6:47 AM ESTAssociated Problem(s): Bipolar disorder ([facility]/HCC) Continue with psych for management of her mental health * Janene Lew NP - 03/06/2024 6:46 AM ESTAssociated Problem(s): Class 3 severe obesity due to excess calories with serious comorbidity and body mass index (BMI) of 45.0 to 49.9 in adult ([facility]) Has lost approx 64 pounds [...] disease, without long-term current use of insulin ([facility]) ([facility]) Check blood sugars daily, notify [...] Will complete her FMLA documented in this [facility]11-21-2024 Instructions* Patient Instructions* Janene Lew NP - 03/06/2024 9:20 AM EST Call CPAP company: see if they need a compliance report, they should be able to down load that for you Keep up great work with diabetes and weight loss documented in this [facility]11-05-2024 History of Present illness Narrative* Marya Castorena DO - 02/19/2024 9:49 AM ESTAssociated Problem(s): Type 2 diabetes mellitus with other circulatory complications ([facility]) During the appointment today all [...] disease, without long-term current use of insulin ([facility]) ([facility]) Class 3 severe obesity due to excess calories with serious comorbidity and body mass index (BMI) of45.0 to 49.9 in adult ([facility]) Type 2 diabetes mellitus with other circulatory complications ([facility]) - Primary During the appointment [...] morning. Do not crush or chew.. LANCETS (SynedgenTOUCH DELICA PLUS [id number]) [facility] Fs[facility] bid METOPROLOL SUCCINATE XL (TOPROL-XL) 12.5 [...] with the patient today. documented in this encounterCass Medical [id number] NoteB[facility] Note Chief Complaint: [...] (more content not included)...[facility] [id number] History of Present illness Narrative* Janene Lew [...] Daily, Do not crush or chew. Lancets (ArkamiTouch Delica Plus [id number]) misc Fsbs bid metoprolol succinate XL (TOPROL-XL) [...] COVID-19 Degenerative disc disease, lumbar 07/02/2023 Depression ([facility]) 04/30/2023 Diabetes mellitus, type 2 ([facility]) 04/30/2023 Dyspnea 07/02/2023 Elevated liver enzymes 07/02/2023 [...] Nephrolithiasis 07/02/2023 URIEL (obstructive sleep apnea) 04/30/2023 [id number]-50 condition Restless leg syndrome Seasonal allergies 04/30/2023 [...] panel CBC and differential documented in this encounterCass Medical [id number] Evaluation note* Encounter Date Diagnosis Assessment Notes [...] - G89.29) Proceed with current treatment plan [employer] Other 03-20-2023 Evaluation note* Encounter Date Diagnosis [...] her spine. She notes prior back surgery [id number] and July 2020. She also notes prior [...] negative findings were considered in medical decision-making. [employer] Other 03-11-2023 Hospital Discharge instructions Additional Instructions [...] bowel control high fever or [facility] Phone: [phone]) 811-469701-27-2023 Evaluation note* Encounter Date Diagnosis Assessment Notes [...] point. A referral will monty sent to [employer] Other 01-10-2023 Evaluation note* Encounter Date Diagnosis [...] Apr,Morbid obesity (ICD-10 - E66.01)Encouraged weight loss [employer] Other 10-12-2022 Evaluation note* Encounter Date Diagnosis [...] strap. A prescription was sent to the [employer] for new supplies throughout the year, as [...] sleepiness, or poor response to treatment. . 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 Sep,Thoracic myelopathy (ICD-10 - M47.14) [employer] Other 05-17-2022 Evaluation note* Encounter Date Diagnosis [...] Overall she is making a good recovery [facility] [employer] Other consult note* Clinical Note Date No Information [facility] Work Phone: Discharge summary* Clinical Note Date No Information [facility] Work Phone: Evaluation noteNo InformationNortEncompass [facility] [employer] Other evaluation noteNo assessment information available [facility] Work Phone: Evaluation note* Diagnosis Onset Date Resolution Status Diabetic nephropathy associated with typ e 2 diabetes mellitus acuteHyperuricemiaacuteHypomagnesemiaacuteIron deficiencyacuteLocalized edema acuteMorbid obesityacuteStage 3b chronic kidney diseaseacuteVitamin B12 deficiencyacuteVitamin D deficiencyacuteHypertensive nephropathyresolvedAcute kidney injury superimposed on CKDacuteDiabetic nephropathy associated with type 2 diabetes mellitusacuteAnemia of renal diseaseresolvedHypertensive nephropathy resolved [facility] Work Phone: Evaluation note* Diagnosis [...] Vitamin B12 deficiencyacuteVitamin D deficiencyacuteHypertensive nephropathy resolved [facility] Work Phone: Evaluation note* Diagnosis Primary hypertension ([facility])- Primary Unspecified essential hypertension Gastroesophageal reflux disease, unspecified whether esophagitis present Microscopic hematuria Lower extremity edema Edema Type 2 diabetes mellitus without complication, without long-term current use of insulin ([facility]) Stage 3 chronic kidney disease due to type 2 diabetes mellitus (HCC) ([facility]) Mixed hyperlipidemia ([facility]) Mixed hyperlipidemia Migraine without aura and without status migrainosus, not intractable ([facility]) Encounter for screening mammogram for malignant neoplasm of breast Colon cancer screening Special screening for malignant neoplasms, colon BMI 50.0-59.9, adult ([facility]) Heel pain, bilateral Type 2 diabetes mellitus without complication, without long-term current use of insulin ([facility])- Primary History of anuria Stage 3 chronic kidney disease due to type 2 diabetes mellitus (HCC) ([facility]) BMI 50.0-59.9, adult ([facility]) URIEL (obstructive sleep apnea) Obstructive sleep apnea (adult) (pediatric) Primary hypertension ([facility]) Unspecified essential hypertension Chronic diastolic heart failure ([facility]) Chronic diastolic heart failure Depression, unspecified depression type ([facility]) Type 2 diabetes mellitus without complication, without long-term current use of insulin ([facility])- Primary Stage 3 chronic kidney disease due to type 2 diabetes mellitus (HCC) ([facility]) BMI 50.0-59.9, adult ([facility]) Lower extremity edema Edema Dental infection- Primary Type 2 diabetes mellitus with stage 3 chronic kidney disease, without long-term current use of insulin, unspecified whether stage 3a or 3b CKD (HCC) ([facility])- Primary Bipolar affective disorder, remission status unspecified ([facility]) Restless leg syndrome Restless legs syndrome (RLS) URIEL (obstructive sleep apnea) Obstructive sleep apnea (adult) (pediatric) Primary hypertension ([facility]) Unspecified essential hypertension Chronic diastolic heart failure ([facility]) Chronic diastolic heart failure Stage 3 chronic kidney disease due to type 2 diabetes mellitus (HCC) ([facility]) Seasonal allergies Allergic rhinitis, cause unspecified BMI 50.0-59.9, adult ([facility]) Type 2 diabetes mellitus with stage 4 chronic kidney disease, without long-term current use of insulin ([facility])- Primary Type 2 diabetes mellitus without complication, without long-term current use of insulin ([facility]) Left lower quadrant abdominal pain- Primary Morbid (severe) obesity due to excess calories ([facility]) Body mass index (BMI) 45.0-49.9, adult ([facility]) Restless leg syndrome Restless legs syndrome (RLS) Stage 3b chronic kidney disease (HCC) ([facility]) Type 2 diabetes mellitus with other circulatory complications ([facility])- Primary Type 2 diabetes mellitus with stage 4 chronic kidney disease, without long-term current use of insulin ([facility]) Type 2 diabetes mellitus with stage 3a chronic kidney disease, without long-term current use of insulin (HCC) ([facility]) Class 3 severe obesity due to excess calories with serious comorbidity and body mass index (BMI) of45.0 to 49.9 in adult ([facility]) documented in this encounter [facility] HealthcareEvaluation note* Diagnosis Primary hypertension ([facility])- Primary Unspecified essential hypertension Gastroesophageal reflux disease, unspecified whether esophagitis present Microscopic hematuria Lower extremity edema Edema Type 2 diabetes mellitus without complication, without long-term current use of insulin ([facility]) Stage 3 chronic kidney disease due to type 2 diabetes mellitus (HCC) ([facility]) Mixed hyperlipidemia ([facility]) Mixed hyperlipidemia Migraine without aura and without status migrainosus, not intractable ([facility]) Encounter for screening mammogram for malignant neoplasm of breast Colon cancer screening Special screening for malignant neoplasms, colon BMI 50.0-59.9, adult ([facility]) Heel pain, bilateral Type 2 diabetes mellitus without complication, without long-term current use of insulin ([facility])- Primary History of anuria Stage 3 chronic kidney disease due to type 2 diabetes mellitus ([facility]) ([facility]) BMI 50.0-59.9, adult ([facility]) URIEL (obstructive sleep apnea) Obstructive sleep apnea (adult) (pediatric) Primary hypertension ([facility]) Unspecified essential hypertension Chronic diastolic heart failure ([facility]) Chronic diastolic heart failure Depression, unspecified depression type ([facility]) Type 2 diabetes mellitus without complication, without long-term current use of insulin ([facility] [facility])- Primary Stage 3 chronic kidney disease due to type 2 diabetes mellitus (HCC) ([facility]) BMI 50.0-59.9, adult ([facility]) Lower extremity edema Edema Dental infection- Primary Type 2 diabetes mellitus with stage 3 chronic kidney disease, without long-term current use of insulin, unspecified whether stage 3a or 3b CKD (HCC) ([facility])- Primary Bipolar affective disorder, remission status unspecified ([facility]) Restless leg syndrome Restless legs syndrome (RLS) URIEL (obstructive sleep apnea) Obstructive sleep apnea (adult) (pediatric) Primary hypertension ([facility]) Unspecified essential hypertension Chronic diastolic heart failure ([facility]/HCC) Chronic diastolic heart failure Stage 3 chronic kidney disease due to type 2 diabetes mellitus (HCC) ([facility]) Seasonal allergies Allergic rhinitis, cause unspecified BMI 50.0-59.9, adult ([facility]) Type 2 diabetes mellitus with stage 4 chronic kidney disease, without long-term current use of insulin ([facility])- Primary Type 2 diabetes mellitus without complication, without long-term current use of insulin ([facility]) Left lower quadrant abdominal pain- Primary Morbid (severe) obesity due to excess calories ([facility]) Body mass index (BMI) 45.0-49.9, adult ([facility]) Restless leg syndrome Restless legs syndrome (RLS) Stage 3b chronic kidney disease (HCC) ([facility]) Type 2 diabetes mellitus with other circulatory complications ([facility])- Primary Type 2 diabetes mellitus with stage 4 chronic kidney disease, without long-term current use of insulin ([facility]) Type 2 diabetes mellitus with stage 3a chronic kidney disease, without long-term current use of insulin ([facility]) ([facility]) Class 3 severe obesity due to excess calories with serious comorbidity and body mass index (BMI) of45.0 to 49.9 in adult ([facility]) Muscle spasm Spasm of muscle documented in this encounter [facility] HealthcareEvaluation note* Diagnosis Primary hypertension ([facility])- Primary Unspecified essential hypertension Gastroesophageal reflux disease, unspecified whether esophagitis present Microscopic hematuria Lower extremity edema Edema Type 2 diabetes mellitus without complication, without long-term current use of insulin ([facility]) Stage 3 chronic kidney disease due to type 2 diabetes mellitus (HCC) ([facility]) Mixed hyperlipidemia ([facility]) Mixed hyperlipidemia Migraine without aura and without status migrainosus, not intractable ([facility]) Encounter for screening mammogram for malignant neoplasm of breast Colon cancer screening Special screening for malignant neoplasms, colon BMI 50.0-59.9, adult ([facility]) Heel pain, bilateral Type 2 diabetes mellitus without complication, without long-term current use of insulin ([facility])- Primary History of anuria Stage 3 chronic kidney disease due to type 2 diabetes mellitus ([facility]) ([facility]) BMI 50.0-59.9, adult ([facility]) URIEL (obstructive sleep apnea) Obstructive sleep apnea (adult) (pediatric) Primary hypertension ([facility]) Unspecified essential hypertension Chronic diastolic heart failure ([facility]) Chronic diastolic heart failure Depression, unspecified depression type ([facility]) Type 2 diabetes mellitus without complication, without long-term current use of insulin ([facility])- Primary Stage 3 chronic kidney disease due to type 2 diabetes mellitus (HCC) ([facility]) BMI 50.0-59.9, adult ([facility]) Lower extremity edema Edema Dental infection- Primary Type 2 diabetes mellitus with stage 3 chronic kidney disease, without long-term current use of insulin, unspecified whether stage 3a or 3b CKD (HCC) ([facility])- Primary Bipolar affective disorder, remission status unspecified ([facility]) Restless leg syndrome Restless legs syndrome (RLS) URIEL (obstructive sleep apnea) Obstructive sleep apnea (adult) (pediatric) Primary hypertension ([facility]) Unspecified essential hypertension Chronic diastolic heart failure ([facility]) Chronic diastolic heart failure Stage 3 chronic kidney disease due to type 2 diabetes mellitus (HCC) ([facility]) Seasonal allergies Allergic rhinitis, cause unspecified BMI 50.0-59.9, adult ([facility]) Type 2 diabetes mellitus with stage 4 chronic kidney disease, without long-term current use of insulin ([facility])- Primary Type 2 diabetes mellitus without complication, without long-term current use of insulin ([facility]) Left lower quadrant abdominal pain- Primary Morbid (severe) obesity due to excess calories ([facility]) Body mass index (BMI) 45.0-49.9, adult ([facility]) Restless leg syndrome Restless legs syndrome (RLS) Stage 3b chronic kidney disease (HCC) ([facility]) Type 2 diabetes mellitus with other circulatory complications ([facility])- Primary Type 2 diabetes mellitus with stage 4 chronic kidney disease, without long-term current use of insulin ([facility]) Type 2 diabetes mellitus with stage 3a chronic kidney disease, without long-term current use of insulin (HCC) ([facility]) Class 3 severe obesity due to excess calories with serious comorbidity and body mass index (BMI) of45.0 to 49.9 in adult ([facility]) Primary hypertension ([facility])- Primary Unspecified essential hypertension Spinal stenosis of lumbar region at multiple levels Restless leg syndrome Restless legs syndrome (RLS) URIEL (obstructive sleep apnea) Obstructive sleep apnea (adult) (pediatric) Coronary arteriosclerosis ([facility]) Coronary atherosclerosis of unspecified type of vessel, big sandy or graft Stage 3b chronic kidney disease (HCC) ([facility]) Swelling of both lower extremities Lower extremity edema Edema Type 2 diabetes mellitus with stage 3a chronic kidney disease, without long-term current use of insulin (HCC) ([facility]) Class 3 severe obesity due to excess calories with serious comorbidity and body mass index (BMI) of45.0 to 49.9 in adult ([facility]) Bipolar affective disorder, remission status unspecified ([facility]) Generalized anxiety disorder ([facility]) Generalized anxiety disorder Vitamin D deficiency Vitamin B12 deficiency Other B-complex deficiencies H/O bariatric surgery Acute non-recurrent pansinusitis documented in this encounter [facility] HealthcareEvaluation note* Diagnosis Primary hypertension ([facility])- Primary Unspecified essential hypertension Gastroesophageal reflux disease, unspecified whether esophagitis present Microscopic hematuria Lower extremity edema Edema Type 2 diabetes mellitus without complication, without long-term current use of insulin ([facility]) Stage 3 chronic kidney disease due to type 2 diabetes mellitus (HCC) ([facility]) Mixed hyperlipidemia ([facility]) Mixed hyperlipidemia Migraine without aura and without status migrainosus, not intractable ([facility]) Encounter for screening mammogram for malignant neoplasm of breast Colon cancer screening Special screening for malignant neoplasms, colon BMI 50.0-59.9, adult ([facility]) Heel pain, bilateral Type 2 diabetes mellitus without complication, without long-term current use of insulin ([facility])- Primary History of anuria Stage 3 chronic kidney disease due to type 2 diabetes mellitus (HCC) ([facility]) BMI 50.0-59.9, adult ([facility]) URIEL (obstructive sleep apnea) Obstructive sleep apnea (adult) (pediatric) Primary hypertension ([facility]) Unspecified essential hypertension Chronic diastolic heart failure ([facility]) Chronic diastolic heart failure Depression, unspecified depression type ([facility]) Type 2 diabetes mellitus without complication, without long-term current use of insulin ([facility])- Primary Stage 3 chronic kidney disease due to type 2 diabetes mellitus (HCC) ([facility]) BMI 50.0-59.9, adult ([facility]) Lower extremity edema Edema Dental infection- Primary Type 2 diabetes mellitus with stage 3 chronic kidney disease, without long-term current use of insulin, unspecified whether stage 3a or 3b CKD (HCC) ([facility])- Primary Bipolar affective disorder, remission status unspecified ([facility]) Restless leg syndrome Restless legs syndrome (RLS) URIEL (obstructive sleep apnea) Obstructive sleep apnea (adult) (pediatric) Primary hypertension ([facility]) Unspecified essential hypertension Chronic diastolic heart failure ([facility]) Chronic diastolic heart failure Stage 3 chronic kidney disease due to type 2 diabetes mellitus (HCC) ([facility]) Seasonal allergies Allergic rhinitis, cause unspecified BMI 50.0-59.9, adult ([facility]) Type 2 diabetes mellitus with stage 4 chronic kidney disease, without long-term current use of insulin ([facility])- Primary Type 2 diabetes mellitus without complication, without long-term current use of insulin ([facility]) Left lower quadrant abdominal pain- Primary Morbid (severe) obesity due to excess calories ([facility]) Body mass index (BMI) 45.0-49.9, adult ([facility]) Restless leg syndrome Restless legs syndrome (RLS) Stage 3b chronic kidney disease (HCC) ([facility]) Type 2 diabetes mellitus with other circulatory complications ([facility])- Primary Type 2 diabetes mellitus with stage 4 chronic kidney disease, without long-term current use of insulin ([facility]) Type 2 diabetes mellitus with stage 3a chronic kidney disease, without long-term current use of insulin ([facility]) ([facility]) Class 3 severe obesity due to excess calories with serious comorbidity and body mass index (BMI) of45.0 to 49.9 in adult ([facility]) Primary hypertension ([facility])- Primary Unspecified essential hypertension Spinal stenosis of lumbar region at multiple levels Restless leg syndrome Restless legs syndrome (RLS) URIEL (obstructive sleep apnea) Obstructive sleep apnea (adult) (pediatric) Coronary arteriosclerosis ([facility]) Coronary atherosclerosis of unspecified type of vessel, big sandy or graft Stage 3b chronic kidney disease (HCC) ([facility]) Swelling of both lower extremities Lower extremity edema Edema Type 2 diabetes mellitus with stage 3a chronic kidney disease, without long-term current use of insulin (HCC) ([facility]) Class 3 severe obesity due to excess calories with serious comorbidity and body mass index (BMI) of45.0 to 49.9 in adult ([facility]) Bipolar affective disorder, remission status unspecified ([facility]) Generalized anxiety disorder ([facility]) Generalized anxiety disorder Vitamin D deficiency Vitamin B12 deficiency Other B-complex deficiencies H/O bariatric surgery Acute non-recurrent pansinusitis Restless leg syndrome Restless legs syndrome (RLS) documented in this encounter [facility]* Diagnosis Left lower quadrant abdominal pain- Primary Morbid (severe) obesity due to excess calories ([facility]) Body mass index (BMI) 45.0-49.9, adult ([facility]) Restless leg syndrome Restless legs syndrome (RLS) Stage 3b chronic kidney disease (HCC) ([facility]) documented in this encounter [facility]* [...] without long-term current use of insulin ([facility])- Primary documented in this encounter [facility]* Diagnosis Primary hypertension ([facility]) Unspecified essential hypertension documented in this encounter [facility]* Diagnosis Primary hypertension ([facility])- Primary Unspecified essential hypertension Gastroesophageal reflux disease, unspecified whether esophagitis present Microscopic hematuria Lower extremity edema Edema Type 2 diabetes mellitus without complication, without long-term current use of insulin ([facility]) Stage 3 chronic kidney disease due to type 2 diabetes mellitus (HCC) ([facility]) Mixed hyperlipidemia ([facility]) Mixed hyperlipidemia Migraine without aura and without status migrainosus, not intractable ([facility]) Encounter for screening mammogram for malignant neoplasm of breast Colon cancer screening Special screening for malignant neoplasms, colon BMI 50.0-59.9, adult ([facility]) Heel pain, bilateral Type 2 diabetes mellitus without complication, without long-term current use of insulin ([facility])- Primary History of anuria Stage 3 chronic kidney disease due to type 2 diabetes mellitus (HCC) ([facility]) BMI 50.0-59.9, adult ([facility]) URIEL (obstructive sleep apnea) Obstructive sleep apnea (adult) (pediatric) Primary hypertension ([facility]) Unspecified essential hypertension Chronic diastolic heart failure ([facility]) Chronic diastolic heart failure Depression, unspecified depression type ([facility]) Type 2 diabetes mellitus without complication, without long-term current use of insulin ([facility])- Primary Stage 3 chronic kidney disease due to type 2 diabetes mellitus (HCC) ([facility]) BMI 50.0-59.9, adult ([facility]) Lower extremity edema Edema Dental infection- Primary Type 2 diabetes mellitus with stage 3 chronic kidney disease, without long-term current use of insulin, unspecified whether stage 3a or 3b CKD (HCC) ([facility])- Primary Bipolar affective disorder, remission status unspecified ([facility]) Restless leg syndrome Restless legs syndrome (RLS) URIEL (obstructive sleep apnea) Obstructive sleep apnea (adult) (pediatric) Primary hypertension ([facility]) Unspecified essential hypertension Chronic diastolic heart failure ([facility]) Chronic diastolic heart failure Stage 3 chronic kidney disease due to type 2 diabetes mellitus ([facility]) ([facility]) Seasonal allergies Allergic rhinitis, cause unspecified BMI 50.0-59.9, adult ([facility]) Type 2 diabetes mellitus with stage 4 chronic kidney disease, without long-term current use of insulin ([facility])- Primary Type 2 diabetes mellitus without complication, without long-term current use of insulin ([facility]) Left lower quadrant abdominal pain- Primary Morbid (severe) obesity due to excess calories ([facility]) Body mass index (BMI) 45.0-49.9, adult ([facility]) Restless leg syndrome Restless legs syndrome (RLS) Stage 3b chronic kidney disease (HCC) ([facility]) Type 2 diabetes mellitus with other circulatory complications ([facility])- Primary Type 2 diabetes mellitus with stage 4 chronic kidney disease, without long-term current use of insulin ([facility]) Type 2 diabetes mellitus with stage 3a chronic kidney disease, without long-term current use of insulin ([facility]) ([facility]) Class 3 severe obesity due to excess calories with serious comorbidity and body mass index (BMI) of45.0 to 49.9 in adult ([facility]) Primary hypertension ([facility])- Primary Unspecified essential hypertension Spinal stenosis of lumbar region at multiple levels Restless leg syndrome Restless legs syndrome (RLS) URIEL (obstructive sleep apnea) Obstructive sleep apnea (adult) (pediatric) Coronary arteriosclerosis ([facility]) Coronary atherosclerosis of unspecified type of vessel, big sandy or graft Stage 3b chronic kidney disease (HCC) ([facility]) Swelling of both lower extremities Lower extremity edema Edema Type 2 diabetes mellitus with stage 3a chronic kidney disease, without long-term current use of insulin (HCC) ([facility]) Class 3 severe obesity due to excess calories with serious comorbidity and body mass index (BMI) of45.0 to 49.9 in adult ([facility]) Bipolar affective disorder, remission status unspecified ([facility]) Generalized anxiety disorder ([facility]) Generalized anxiety disorder Vitamin D deficiency Vitamin B12 deficiency Other B-complex deficiencies H/O bariatric surgery Acute non-recurrent pansinusitis Muscle spasm Spasm of muscle documented in this encounter [facility]* Diagnosis Primary hypertension ([facility])- Primary Unspecified essential hypertension Gastroesophageal reflux disease, unspecified whether esophagitis present Microscopic hematuria Lower extremity edema Edema Type 2 diabetes mellitus without complication, without long-term current use of insulin ([facility]) Stage 3 chronic kidney disease due to type 2 diabetes mellitus (HCC) ([facility]) Mixed hyperlipidemia ([facility]) Mixed hyperlipidemia Migraine without aura and without status migrainosus, not intractable ([facility]) Encounter for screening mammogram for malignant neoplasm of breast Colon cancer screening Special screening for malignant neoplasms, colon BMI 50.0-59.9, adult ([facility] [facility]) Heel pain, bilateral Type 2 diabetes mellitus without complication, without long-term current use of insulin ([facility])- Primary History of anuria Stage 3 chronic kidney disease due to type 2 diabetes mellitus (HCC) ([facility]) BMI 50.0-59.9, adult ([facility]) URIEL (obstructive sleep apnea) Obstructive sleep apnea (adult) (pediatric) Primary hypertension ([facility]) Unspecified essential hypertension Chronic diastolic heart failure ([facility]) Chronic diastolic heart failure Depression, unspecified depression type ([facility]) Type 2 diabetes mellitus without complication, without long-term current use of insulin ([facility])- Primary Stage 3 chronic kidney disease due to type 2 diabetes mellitus (HCC) ([facility]) BMI 50.0-59.9, adult ([facility]) Lower extremity edema Edema Dental infection- Primary Type 2 diabetes mellitus with stage 3 chronic kidney disease, without long-term current use of insulin, unspecified whether stage 3a or 3b CKD (HCC) ([facility])- Primary Bipolar affective disorder, remission status unspecified ([facility]) Restless leg syndrome Restless legs syndrome (RLS) URIEL (obstructive sleep apnea) Obstructive sleep apnea (adult) (pediatric) Primary hypertension ([facility]) Unspecified essential hypertension Chronic diastolic heart failure ([facility]) Chronic diastolic heart failure Stage 3 chronic kidney disease due to type 2 diabetes mellitus ([facility]) ([facility]) Seasonal allergies Allergic rhinitis, cause unspecified BMI 50.0-59.9, adult ([facility]) Type 2 diabetes mellitus with stage 4 chronic kidney disease, without long-term current use of insulin ([facility])- Primary Type 2 diabetes mellitus without complication, without long-term current use of insulin ([facility]) Left lower quadrant abdominal pain- Primary Morbid (severe) obesity due to excess calories ([facility]) Body mass index (BMI) 45.0-49.9, adult ([facility]) Restless leg syndrome Restless legs syndrome (RLS) Stage 3b chronic kidney disease (HCC) ([facility]) Type 2 diabetes mellitus with other circulatory complications ([facility])- Primary Type 2 diabetes mellitus with stage 4 chronic kidney disease, without long-term current use of insulin ([facility]) Type 2 diabetes mellitus with stage 3a chronic kidney disease, without long-term current use of insulin ([facility]) ([facility]) Class 3 severe obesity due to excess calories with serious comorbidity and body mass index (BMI) of45.0 to 49.9 in adult ([facility]) Primary hypertension ([facility])- Primary Unspecified essential hypertension Spinal stenosis of lumbar region at multiple levels Restless leg syndrome Restless legs syndrome (RLS) URIEL (obstructive sleep apnea) Obstructive sleep apnea (adult) (pediatric) Coronary arteriosclerosis ([facility]) Coronary atherosclerosis of unspecified type of vessel, big sandy or graft Stage 3b chronic kidney disease (HCC) ([facility]) Swelling of both lower extremities Lower extremity edema Edema Type 2 diabetes mellitus with stage 3a chronic kidney disease, without long-term current use of insulin ([facility]) ([facility]) Class 3 severe obesity due to excess calories with serious comorbidity and body mass index (BMI) of45.0 to 49.9 in adult ([facility]) Bipolar affective disorder, remission status unspecified ([facility]) Generalized anxiety disorder ([facility]) Generalized anxiety disorder Vitamin D deficiency Vitamin B12 deficiency Other B-complex deficiencies H/O bariatric surgery Acute non-recurrent pansinusitis Class 2 severe obesity due to excess calories with serious comorbidity and body mass index (BMI) of38.0 to 38.9 in adult ([facility])- Primary Type 2 diabetes mellitus with other circulatory complications ([facility]) Type 2 diabetes mellitus with stage 3a chronic kidney disease, without long-term current use of insulin ([facility]) ([facility]) documented in this encounter [facility] HealthcareEvaluation note* Diagnosis Primary hypertension ([facility])- Primary Unspecified essential hypertension Gastroesophageal reflux disease, unspecified whether esophagitis present Microscopic hematuria Lower extremity edema Edema Type 2 diabetes mellitus without complication, without long-term current use of insulin Stage 3 chronic kidney disease due to type 2 diabetes mellitus (HCC) ([facility]) Mixed hyperlipidemia ([facility]) Mixed hyperlipidemia Migraine without aura and without status migrainosus, not intractable ([facility]) Encounter for screening mammogram for malignant neoplasm of breast Colon cancer screening Special screening for malignant neoplasms, colon BMI 50.0-59.9, adult ([facility]) Heel pain, bilateral Type 2 diabetes mellitus without complication, without long-term current use of insulin- Primary History of anuria Stage 3 chronic kidney disease due to type 2 diabetes mellitus (HCC) ([facility]) BMI 50.0-59.9, adult ([facility]) URIEL (obstructive sleep apnea) Obstructive sleep apnea (adult) (pediatric) Primary hypertension ([facility]) Unspecified essential hypertension Chronic diastolic heart failure ([facility]) Chronic diastolic heart failure Depression, unspecified depression type ([facility]) Type 2 diabetes mellitus without complication, without long-term current use of insulin- Primary Stage 3 chronic kidney disease due to type 2 diabetes mellitus (HCC) ([facility]) BMI 50.0-59.9, adult ([facility]) Lower extremity edema Edema Dental infection- Primary Type 2 diabetes mellitus with stage 3 chronic kidney disease, without long-term current use of insulin, unspecified whether stage 3a or 3b CKD ([facility]) ([facility])- Primary Bipolar affective disorder, remission status unspecified ([facility]) Restless leg syndrome Restless legs syndrome (RLS) URIEL (obstructive sleep apnea) Obstructive sleep apnea (adult) (pediatric) Primary hypertension ([facility]) Unspecified essential hypertension Chronic diastolic heart failure ([facility]) Chronic diastolic heart failure Stage 3 chronic kidney disease due to type 2 diabetes mellitus (HCC) ([facility]) Seasonal allergies Allergic rhinitis, cause unspecified BMI 50.0-59.9, adult ([facility]) Type 2 diabetes mellitus with stage 4 chronic kidney disease, without long-term current use of insulin ([facility])- Primary Type 2 diabetes mellitus without complication, without long-term current use of insulin Left lower quadrant abdominal pain- Primary Morbid (severe) obesity due to excess calories ([facility]) Body mass index (BMI) 45.0-49.9, adult ([facility]) Restless leg syndrome Restless legs syndrome (RLS) Stage 3b chronic kidney disease (HCC) ([facility]) Type 2 diabetes mellitus with other circulatory complications- Primary Type 2 diabetes mellitus with stage 4 chronic kidney disease, without long-term current use of insulin ([facility]) Type 2 diabetes mellitus with stage 3a chronic kidney disease, without long-term current use of insulin ([facility]) ([facility]) Class 3 severe obesity due to excess calories with serious comorbidity and body mass index (BMI) of45.0 to 49.9 in adult Primary hypertension ([facility])- Primary Unspecified essential hypertension Spinal stenosis of lumbar region at multiple levels Restless leg syndrome Restless legs syndrome (RLS) URIEL (obstructive sleep apnea) Obstructive sleep apnea (adult) (pediatric) Coronary arteriosclerosis ([facility]) Coronary atherosclerosis of unspecified type of vessel, big sandy or graft Stage 3b chronic kidney disease (HCC) ([facility]) Swelling of both lower extremities Lower extremity edema Edema Type 2 diabetes mellitus with stage 3a chronic kidney disease, without long-term current use of insulin ([facility]) ([facility]) Class 3 severe obesity due to excess calories with serious comorbidity and body mass index (BMI) of45.0 to 49.9 in adult Bipolar affective disorder, remission status unspecified ([facility]) Generalized anxiety disorder ([facility]) Generalized anxiety disorder Vitamin D deficiency Vitamin B12 deficiency Other B-complex deficiencies H/O bariatric surgery Acute non-recurrent pansinusitis Class 2 severe obesity due to excess calories with serious comorbidity and body mass index (BMI) of38.0 to 38.9 in adult ([facility])- Primary Type 2 diabetes mellitus with other circulatory complications Type 2 diabetes mellitus with stage 3a chronic kidney disease, without long-term current use of insulin (HCC) ([facility]) Acute foot pain, left- Primary Acute left ankle pain documented in this encounter [facility] HealthcareEvaluation note* Diagnosis Primary hypertension ([facility])- Primary Unspecified essential hypertension Gastroesophageal reflux disease, unspecified whether esophagitis present Microscopic hematuria Lower extremity edema Edema Type 2 diabetes mellitus without complication, without long-term current use of insulin Stage 3 chronic kidney disease due to type 2 diabetes mellitus (HCC) ([facility]) Mixed hyperlipidemia ([facility]) Mixed hyperlipidemia Migraine without aura and without status migrainosus, not intractable ([facility]) Encounter for screening mammogram for malignant neoplasm of breast Colon cancer screening Special screening for malignant neoplasms, colon BMI 50.0-59.9, adult ([facility]) Heel pain, bilateral Type 2 diabetes mellitus without complication, without long-term current use of insulin- Primary History of anuria Stage 3 chronic kidney disease due to type 2 diabetes mellitus (HCC) ([facility]) BMI 50.0-59.9, adult ([facility]) URIEL (obstructive sleep apnea) Obstructive sleep apnea (adult) (pediatric) Primary hypertension ([facility]) Unspecified essential hypertension Chronic diastolic heart failure ([facility]) Chronic diastolic heart failure Depression, unspecified depression type ([facility]) Type 2 diabetes mellitus without complication, without long-term current use of insulin- Primary Stage 3 chronic kidney disease due to type 2 diabetes mellitus (HCC) ([facility]) BMI 50.0-59.9, adult ([facility]) Lower extremity edema Edema Dental infection- Primary Type 2 diabetes mellitus with stage 3 chronic kidney disease, without long-term current use of insulin, unspecified whether stage 3a or 3b CKD (HCC) ([facility])- Primary Bipolar affective disorder, remission status unspecified ([facility]) Restless leg syndrome Restless legs syndrome (RLS) URIEL (obstructive sleep apnea) Obstructive sleep apnea (adult) (pediatric) Primary hypertension ([facility]) Unspecified essential hypertension Chronic diastolic heart failure ([facility]) Chronic diastolic heart failure Stage 3 chronic kidney disease due to type 2 diabetes mellitus (HCC) ([facility]) Seasonal allergies Allergic rhinitis, cause unspecified BMI 50.0-59.9, adult ([facility]) Type 2 diabetes mellitus with stage 4 chronic kidney disease, without long-term current use of insulin ([facility])- Primary Type 2 diabetes mellitus without complication, without long-term current use of insulin Left lower quadrant abdominal pain- Primary Morbid (severe) obesity due to excess calories ([facility]) Body mass index (BMI) 45.0-49.9, adult ([facility]) Restless leg syndrome Restless legs syndrome (RLS) Stage 3b chronic kidney disease (HCC) ([facility]) Type 2 diabetes mellitus with other circulatory complications- Primary Type 2 diabetes mellitus with stage 4 chronic kidney disease, without long-term current use of insulin ([facility]) Type 2 diabetes mellitus with stage 3a chronic kidney disease, without long-term current use of insulin (HCC) ([facility]) Class 3 severe obesity due to excess calories with serious comorbidity and body mass index (BMI) of45.0 to 49.9 in adult Primary hypertension ([facility])- Primary Unspecified essential hypertension Spinal stenosis of lumbar region at multiple levels Restless leg syndrome Restless legs syndrome (RLS) URIEL (obstructive sleep apnea) Obstructive sleep apnea (adult) (pediatric) Coronary arteriosclerosis ([facility]) Coronary atherosclerosis of unspecified type of vessel, big sandy or graft Stage 3b chronic kidney disease (HCC) ([facility]) Swelling of both lower extremities Lower extremity edema Edema Type 2 diabetes mellitus with stage 3a chronic kidney disease, without long-term current use of insulin (HCC) ([facility]) Class 3 severe obesity due to excess calories with serious comorbidity and body mass index (BMI) of45.0 to 49.9 in adult Bipolar affective disorder, remission status unspecified ([facility]) Generalized anxiety disorder ([facility]) Generalized anxiety disorder Vitamin D deficiency Vitamin B12 deficiency Other B-complex deficiencies H/O bariatric surgery Acute non-recurrent pansinusitis Class 2 severe obesity due to excess calories with serious comorbidity and body mass index (BMI) of38.0 to 38.9 in adult ([facility])- Primary Type 2 diabetes mellitus with other circulatory complications Type 2 diabetes mellitus with stage 3a chronic kidney disease, without long-term current use of insulin (HCC) ([facility]) Restless leg syndrome Restless legs syndrome (RLS) documented in this encounter [facility] HealthcareEvaluation note* Diagnosis Primary hypertension ([facility])- Primary Unspecified essential hypertension Gastroesophageal reflux disease, unspecified whether esophagitis present Microscopic hematuria Lower extremity edema Edema Type 2 diabetes mellitus without complication, without long-term current use of insulin Stage 3 chronic kidney disease due to type 2 diabetes mellitus (HCC) ([facility]) Mixed hyperlipidemia ([facility]) Mixed hyperlipidemia Migraine without aura and without status migrainosus, not intractable ([facility]) Encounter for screening mammogram for malignant neoplasm of breast Colon cancer screening Special screening for malignant neoplasms, colon BMI 50.0-59.9, adult ([facility]) Heel pain, bilateral Type 2 diabetes mellitus without complication, without long-term current use of insulin- Primary History of anuria Stage 3 chronic kidney disease due to type 2 diabetes mellitus (HCC) ([facility]) BMI 50.0-59.9, adult ([facility]) URIEL (obstructive sleep apnea) Obstructive sleep apnea (adult) (pediatric) Primary hypertension ([facility]) Unspecified essential hypertension Chronic diastolic heart failure ([facility]) Chronic diastolic heart failure Depression, unspecified depression type ([facility]) Type 2 diabetes mellitus without complication, without long-term current use of insulin- Primary Stage 3 chronic kidney disease due to type 2 diabetes mellitus (HCC) ([facility]) BMI 50.0-59.9, adult ([facility]) Lower extremity edema Edema Dental infection- Primary Type 2 diabetes mellitus with stage 3 chronic kidney disease, without long-term current use of insulin, unspecified whether stage 3a or 3b CKD (HCC) ([facility])- Primary Bipolar affective disorder, remission status unspecified ([facility]) Restless leg syndrome Restless legs syndrome (RLS) URIEL (obstructive sleep apnea) Obstructive sleep apnea (adult) (pediatric) Primary hypertension ([facility]) Unspecified essential hypertension Chronic diastolic heart failure ([facility]) Chronic diastolic heart failure Stage 3 chronic kidney disease due to type 2 diabetes mellitus (HCC) ([facility]) Seasonal allergies Allergic rhinitis, cause unspecified BMI 50.0-59.9, adult ([facility]) Type 2 diabetes mellitus with stage 4 chronic kidney disease, without long-term current use of insulin ([facility])- Primary Type 2 diabetes mellitus without complication, without long-term current use of insulin Left lower quadrant abdominal pain- Primary Morbid (severe) obesity due to excess calories ([facility]) Body mass index (BMI) 45.0-49.9, adult ([facility]) Restless leg syndrome Restless legs syndrome (RLS) Stage 3b chronic kidney disease (HCC) ([facility]) Type 2 diabetes mellitus with other circulatory complications- Primary Type 2 diabetes mellitus with stage 4 chronic kidney disease, without long-term current use of insulin (CMS/HCC) Type 2 diabetes mellitus with stage 3a chronic kidney disease, without long-term current use of insulin (HCC) ([facility]) Class 3 severe obesity due to excess calories with serious comorbidity and body mass index (BMI) of45.0 to 49.9 in adult Primary hypertension (CMS/HCC)- Primary Unspecified essential hypertension Spinal stenosis of lumbar region at multiple levels Restless leg syndrome Restless legs syndrome (RLS) URIEL (obstructive sleep apnea) Obstructive sleep apnea (adult) (pediatric) Coronary arteriosclerosis ([facility]) Coronary atherosclerosis of unspecified type of vessel, big sandy or graft Stage 3b chronic kidney disease (HCC) ([facility]) Swelling of both lower extremities Lower extremity edema Edema Type 2 diabetes mellitus with stage 3a chronic kidney disease, without long-term current use of insulin (HCC) ([facility]) Class 3 severe obesity due to excess calories with serious comorbidity and body mass index (BMI) of45.0 to 49.9 in adult Bipolar affective disorder, remission status unspecified ([facility]) Generalized anxiety disorder ([facility] [facility] Generalized anxiety disorder Vitamin D deficiency Vitamin B12 deficiency Other B-complex deficiencies H/O bariatric surgery Acute non-recurrent pansinusitis Class 2 severe obesity due to excess calories with serious comorbidity and body mass index (BMI) of38.0 to 38.9 in adult ([facility])- Primary Type 2 diabetes mellitus with other circulatory complications Type 2 diabetes mellitus with stage 3a chronic kidney disease, without long-term current use of insulin (HCC) ([facility]) Primary hypertension ([facility]) Unspecified essential hypertension documented in this encounter [facility]* Diagnosis Primary hypertension ([facility])- Primary Unspecified essential hypertension Gastroesophageal reflux disease, unspecified whether esophagitis present Microscopic hematuria Lower extremity edema Edema Type 2 diabetes mellitus without complication, without long-term current use of insulin Stage 3 chronic kidney disease due to type 2 diabetes mellitus (HCC) ([facility]) Mixed hyperlipidemia ([facility]) Mixed hyperlipidemia Migraine without aura and without status migrainosus, not intractable ([facility]) Encounter for screening mammogram for malignant neoplasm of breast Colon cancer screening Special screening for malignant neoplasms, colon BMI 50.0-59.9, adult ([facility]) Heel pain, bilateral Type 2 diabetes mellitus without complication, without long-term current use of insulin- Primary History of anuria Stage 3 chronic kidney disease due to type 2 diabetes mellitus (HCC) ([facility]) BMI 50.0-59.9, adult ([facility]) URIEL (obstructive sleep apnea) Obstructive sleep apnea (adult) (pediatric) Primary hypertension ([facility]) Unspecified essential hypertension Chronic diastolic heart failure ([facility]) Chronic diastolic heart failure Depression, unspecified depression type ([facility]) Type 2 diabetes mellitus without complication, without long-term current use of insulin- Primary Stage 3 chronic kidney disease due to type 2 diabetes mellitus (HCC) ([facility]) BMI 50.0-59.9, adult ([facility]) Lower extremity edema Edema Dental infection- Primary Type 2 diabetes mellitus with stage 3 chronic kidney disease, without long-term current use of insulin, unspecified whether stage 3a or 3b CKD ([facility]) ([facility])- Primary Bipolar affective disorder, remission status unspecified ([facility]) Restless leg syndrome Restless legs syndrome (RLS) URIEL (obstructive sleep apnea) Obstructive sleep apnea (adult) (pediatric) Primary hypertension ([facility]) Unspecified essential hypertension Chronic diastolic heart failure ([facility]) Chronic diastolic heart failure Stage 3 chronic kidney disease due to type 2 diabetes mellitus ([facility]) ([facility]) Seasonal allergies Allergic rhinitis, cause unspecified BMI 50.0-59.9, adult ([facility]) Type 2 diabetes mellitus with stage 4 chronic kidney disease, without long-term current use of insulin ([facility])- Primary Type 2 diabetes mellitus without complication, without long-term current use of insulin Left lower quadrant abdominal pain- Primary Morbid (severe) obesity due to excess calories ([facility]) Body mass index (BMI) 45.0-49.9, adult ([facility]) Restless leg syndrome Restless legs syndrome (RLS) Stage 3b chronic kidney disease (HCC) ([facility]) Type 2 diabetes mellitus with other circulatory complications- Primary Type 2 diabetes mellitus with stage 4 chronic kidney disease, without long-term current use of insulin ([facility]) Type 2 diabetes mellitus with stage 3a chronic kidney disease, without long-term current use of insulin ([facility]) ([facility]) Class 3 severe obesity due to excess calories with serious comorbidity and body mass index (BMI) of45.0 to 49.9 in adult Primary hypertension ([facility])- Primary Unspecified essential hypertension Spinal stenosis of lumbar region at multiple levels Restless leg syndrome Restless legs syndrome (RLS) URIEL (obstructive sleep apnea) Obstructive sleep apnea (adult) (pediatric) Coronary arteriosclerosis ([facility]) Coronary atherosclerosis of unspecified type of vessel, big sandy or graft Stage 3b chronic kidney disease (HCC) ([facility]) Swelling of both lower extremities Lower extremity edema Edema Type 2 diabetes mellitus with stage 3a chronic kidney disease, without long-term current use of insulin (HCC) ([facility]) Class 3 severe obesity due to excess calories with serious comorbidity and body mass index (BMI) of45.0 to 49.9 in adult Bipolar affective disorder, remission status unspecified ([facility]) Generalized anxiety disorder ([facility]) Generalized anxiety disorder Vitamin D deficiency Vitamin B12 deficiency Other B-complex deficiencies H/O bariatric surgery Acute non-recurrent pansinusitis Class 2 severe obesity due to excess calories with serious comorbidity and body mass index (BMI) of38.0 to 38.9 in adult ([facility])- Primary Type 2 diabetes mellitus with other circulatory complications Type 2 diabetes mellitus with stage 3a chronic kidney disease, without long-term current use of insulin (HCC) ([facility]) Muscle spasm Spasm of muscle documented in this encounter [facility] HealthcareEvaluation note* Diagnosis Primary hypertension ([facility])- Primary Unspecified essential hypertension Gastroesophageal reflux disease, unspecified whether esophagitis present Microscopic hematuria Lower extremity edema Edema Type 2 diabetes mellitus without complication, without long-term current use of insulin Stage 3 chronic kidney disease due to type 2 diabetes mellitus (HCC) ([facility]) Mixed hyperlipidemia ([facility]) Mixed hyperlipidemia Migraine without aura and without status migrainosus, not intractable ([facility]) Encounter for screening mammogram for malignant neoplasm of breast Colon cancer screening Special screening for malignant neoplasms, colon BMI 50.0-59.9, adult ([facility]) Heel pain, bilateral Type 2 diabetes mellitus without complication, without long-term current use of insulin- Primary History of anuria Stage 3 chronic kidney disease due to type 2 diabetes mellitus (HCC) ([facility]) BMI 50.0-59.9, adult ([facility]) URIEL (obstructive sleep apnea) Obstructive sleep apnea (adult) (pediatric) Primary hypertension ([facility]) Unspecified essential hypertension Chronic diastolic heart failure ([facility]) Chronic diastolic heart failure Depression, unspecified depression type ([facility]) Type 2 diabetes mellitus without complication, without long-term current use of insulin- Primary Stage 3 chronic kidney disease due to type 2 diabetes mellitus (HCC) ([facility]) BMI 50.0-59.9, adult ([facility]) Lower extremity edema Edema Type 2 diabetes mellitus with stage 3 chronic kidney disease, without long-term current use of insulin, unspecified whether stage 3a or 3b CKD ([facility]) ([facility])- Primary Bipolar affective disorder, remission status unspecified ([facility]) Restless leg syndrome Restless legs syndrome (RLS) URIEL (obstructive sleep apnea) Obstructive sleep apnea (adult) (pediatric) Primary hypertension ([facility]) Unspecified essential hypertension Chronic diastolic heart failure ([facility]) Chronic diastolic heart failure Stage 3 chronic kidney disease due to type 2 diabetes mellitus ([facility]) ([facility]) Seasonal allergies Allergic rhinitis, cause unspecified BMI 50.0-59.9, adult ([facility]) Type 2 diabetes mellitus with stage 4 chronic kidney disease, without long-term current use of insulin ([facility])- Primary Type 2 diabetes mellitus without complication, without long-term current use of insulin Left lower quadrant abdominal pain- Primary Morbid (severe) obesity due to excess calories ([facility]) Body mass index (BMI) 45.0-49.9, adult ([facility]) Restless leg syndrome Restless legs syndrome (RLS) Stage 3b chronic kidney disease (HCC) ([facility]) Type 2 diabetes mellitus with other circulatory complications- Primary Type 2 diabetes mellitus with stage 4 chronic kidney disease, without long-term current use of insulin ([facility]) Type 2 diabetes mellitus with stage 3a chronic kidney disease, without long-term current use of insulin ([facility]) ([facility]) Class 3 severe obesity due to excess calories with serious comorbidity and body mass index (BMI) of45.0 to 49.9 in adult Primary hypertension ([facility])- Primary Unspecified essential hypertension Spinal stenosis of lumbar region at multiple levels Restless leg syndrome Restless legs syndrome (RLS) URIEL (obstructive sleep apnea) Obstructive sleep apnea (adult) (pediatric) Coronary arteriosclerosis ([facility]) Coronary atherosclerosis of unspecified type of vessel, big sandy or graft Stage 3b chronic kidney disease (HCC) ([facility]) Swelling of both lower extremities Lower extremity edema Edema Type 2 diabetes mellitus with stage 3a chronic kidney disease, without long-term current use of insulin ([facility]) [facility] Class 3 severe obesity due to excess calories with serious comorbidity and body mass index (BMI) of45.0 to 49.9 in adult Bipolar affective disorder, remission status unspecified ([facility]) Generalized anxiety disorder ([facility]) Generalized anxiety disorder Vitamin D deficiency Vitamin B12 deficiency Other B-complex deficiencies H/O bariatric surgery Acute non-recurrent pansinusitis Class 2 severe obesity due to excess calories with serious comorbidity and body mass index (BMI) of38.0 to 38.9 in adult ([facility])- Primary Type 2 diabetes mellitus with other circulatory complications Type 2 diabetes mellitus with stage 3a chronic kidney disease, without long-term current use of insulin ([facility]) ([facility]) Encounter for wellness examination in adult- Primary Encounter for screening mammogram for malignant neoplasm of breast Primary hypertension ([facility]) Unspecified essential hypertension Chronic diastolic heart failure ([facility]) Chronic diastolic heart failure Stage 3b chronic kidney disease (HCC) ([facility]) Class 2 severe obesity due to excess calories with serious comorbidity and body mass index (BMI) of38.0 to 38.9 in adult ([facility]) Type 2 diabetes mellitus with stage 3a chronic kidney disease, without long-term current use of insulin (HCC) ([facility]) Mixed hyperlipidemia ([facility]) Mixed hyperlipidemia documented in this encounter [facility] HealthcareEvaluation note* Diagnosis Primary hypertension ([facility])- Primary Unspecified essential hypertension Gastroesophageal reflux disease, unspecified whether esophagitis present Microscopic hematuria Lower extremity edema Edema Type 2 diabetes mellitus without complication, without long-term current use of insulin Stage 3 chronic kidney disease due to type 2 diabetes mellitus (HCC) ([facility]) Mixed hyperlipidemia ([facility]) Mixed hyperlipidemia Migraine without aura and without status migrainosus, not intractable ([facility]) Encounter for screening mammogram for malignant neoplasm of breast Colon cancer screening Special screening for malignant neoplasms, colon BMI 50.0-59.9, adult ([facility]) Heel pain, bilateral Type 2 diabetes mellitus without complication, without long-term current use of insulin- Primary History of anuria Stage 3 chronic kidney disease due to type 2 diabetes mellitus (HCC) ([facility]) BMI 50.0-59.9, adult ([facility]) UREIL (obstructive sleep apnea) Obstructive sleep apnea (adult) (pediatric) Primary hypertension ([facility]) Unspecified essential hypertension Chronic diastolic heart failure ([facility]) Chronic diastolic heart failure Depression, unspecified depression type ([facility]) Type 2 diabetes mellitus without complication, without long-term current use of insulin- Primary Stage 3 chronic kidney disease due to type 2 diabetes mellitus ([facility]) ([facility]) BMI 50.0-59.9, adult ([facility]) Lower extremity edema Edema Type 2 diabetes mellitus with stage 3 chronic kidney disease, without long-term current use of insulin, unspecified whether stage 3a or 3b CKD ([facility]) ([facility])- Primary Bipolar affective disorder, remission status unspecified ([facility]) Restless leg syndrome Restless legs syndrome (RLS) URIEL (obstructive sleep apnea) Obstructive sleep apnea (adult) (pediatric) Primary hypertension ([facility]) Unspecified essential hypertension Chronic diastolic heart failure ([facility]) Chronic diastolic heart failure Stage 3 chronic kidney disease due to type 2 diabetes mellitus ([facility]) ([facility]) Seasonal allergies Allergic rhinitis, cause unspecified BMI 50.0-59.9, adult ([facility]) Type 2 diabetes mellitus with stage 4 chronic kidney disease, without long-term current use of insulin ([facility])- Primary Type 2 diabetes mellitus without complication, without long-term current use of insulin Left lower quadrant abdominal pain- Primary Morbid (severe) obesity due to excess calories ([facility]) Body mass index (BMI) 45.0-49.9, adult ([facility]) Restless leg syndrome Restless legs syndrome (RLS) Stage 3b chronic kidney disease (HCC) ([facility]) Type 2 diabetes mellitus with other circulatory complications- Primary Type 2 diabetes mellitus with stage 4 chronic kidney disease, without long-term current use of insulin ([facility]) Type 2 diabetes mellitus with stage 3a chronic kidney disease, without long-term current use of insulin ([facility]) ([facility]) Class 3 severe obesity due to excess calories with serious comorbidity and body mass index (BMI) of45.0 to 49.9 in adult Primary hypertension ([facility])- Primary Unspecified essential hypertension Spinal stenosis of lumbar region at multiple levels Restless leg syndrome Restless legs syndrome (RLS) URIEL (obstructive sleep apnea) Obstructive sleep apnea (adult) (pediatric) Coronary arteriosclerosis ([facility]) Coronary atherosclerosis of unspecified type of vessel, big sandy or graft Stage 3b chronic kidney disease (HCC) ([facility]) Swelling of both lower extremities Lower extremity edema Edema Type 2 diabetes mellitus with stage 3a chronic kidney disease, without long-term current use of insulin (HCC) ([facility]) Class 3 severe obesity due to excess calories with serious comorbidity and body mass index (BMI) of45.0 to 49.9 in adult Bipolar affective disorder, remission status unspecified ([facility]) Generalized anxiety disorder ([facility]) Generalized anxiety disorder Vitamin D deficiency Vitamin B12 deficiency Other B-complex deficiencies H/O bariatric surgery Acute non-recurrent pansinusitis Class 2 severe obesity due to excess calories with serious comorbidity and body mass index (BMI) of38.0 to 38.9 in adult ([facility])- Primary Type 2 diabetes mellitus with other circulatory complications Type 2 diabetes mellitus with stage 3a chronic kidney disease, without long-term current use of insulin ([facility]) ([facility]) Encounter for wellness examination in adult- Primary Encounter for screening mammogram for malignant neoplasm of breast Primary hypertension ([facility]) Unspecified essential hypertension Chronic diastolic heart failure ([facility]) Chronic diastolic heart failure Stage 3b chronic kidney disease (HCC) ([facility]) Class 2 severe obesity due to excess calories with serious comorbidity and body mass index (BMI) of38.0 to 38.9 in adult ([facility]) Type 2 diabetes mellitus with stage 3a chronic kidney disease, without long-term current use of insulin ([facility]) ([facility]) Mixed hyperlipidemia ([facility]) Mixed hyperlipidemia Restless leg syndrome Restless legs syndrome (RLS) documented in this encounter [facility] HealthcareEvaluation note* Diagnosis Primary hypertension- Primary Unspecified essential hypertension Gastroesophageal reflux disease, unspecified whether esophagitis present Microscopic hematuria Lower extremity edema Edema Type 2 diabetes mellitus without complication, without long-term current use of insulin ([facility]) Stage 3 chronic kidney disease due to type 2 diabetes mellitus ([facility]) Mixed hyperlipidemia Mixed hyperlipidemia Migraine without aura and without status migrainosus, not intractable Encounter for screening mammogram for malignant neoplasm of breast Colon cancer screening Special screening for malignant neoplasms, colon BMI 50.0-59.9, adult ([facility]) Heel pain, bilateral Type 2 diabetes mellitus without complication, without long-term current use of insulin ([facility])- Primary History of anuria Stage 3 chronic kidney disease due to type 2 diabetes mellitus ([facility]) BMI 50.0-59.9, adult ([facility]) URIEL (obstructive sleep apnea) Obstructive sleep apnea (adult) (pediatric) Primary hypertension Unspecified essential hypertension Chronic diastolic heart failure ([facility]) Chronic diastolic heart failure Depression, unspecified depression type Type 2 diabetes mellitus without complication, without long-term current use of insulin ([facility])- Primary Stage 3 chronic kidney disease due to type 2 diabetes mellitus ([facility]) BMI 50.0-59.9, adult ([facility]) Lower extremity edema Edema Type 2 diabetes mellitus with stage 3 chronic kidney disease, without long-term current use of insulin, unspecified whether stage 3a or 3b CKD ([facility])- Primary Bipolar affective disorder, remission status unspecified ([facility]) Restless leg syndrome Restless legs syndrome (RLS) URIEL (obstructive sleep apnea) Obstructive sleep apnea (adult) (pediatric) Primary hypertension Unspecified essential hypertension Chronic diastolic heart failure ([facility]) Chronic diastolic heart failure Stage 3 chronic kidney disease due to type 2 diabetes mellitus ([facility]) Seasonal allergies Allergic rhinitis, cause unspecified BMI 50.0-59.9, adult ([facility]) Type 2 diabetes mellitus with stage 4 chronic kidney disease, without long-term current use of insulin ([facility])- Primary Type 2 diabetes mellitus without complication, without long-term current use of insulin ([facility]) Left lower quadrant abdominal pain- Primary Morbid (severe) obesity due to excess calories ([facility]) Body mass index (BMI) 45.0-49.9, adult ([facility] [facility] [place] Restless leg syndrome Restless legs syndrome (RLS) Stage 3b chronic kidney disease ([facility] [place]) Type 2 diabetes mellitus with other circulatory complications ([facility])- Primary Type 2 diabetes mellitus with stage 4 chronic kidney disease, without long-term current use of insulin ([facility]) Type 2 diabetes mellitus with stage 3a chronic kidney disease, without long-term current use of insulin ([facility]) Class 3 severe obesity due to excess calories with serious comorbidity and body mass index (BMI) of45.0 to 49.9 in adult ([facility] [place]) Primary hypertension- Primary Unspecified essential hypertension Spinal stenosis of lumbar region at multiple levels Restless leg syndrome Restless legs syndrome (RLS) UIREL (obstructive sleep apnea) Obstructive sleep apnea (adult) (pediatric) Coronary arteriosclerosis Coronary atherosclerosis of unspecified type of vessel, big sandy or graft Stage 3b chronic kidney disease ([facility] [place]) Swelling of both lower extremities Lower extremity edema Edema Type 2 diabetes mellitus with stage 3a chronic kidney disease, without long-term current use of insulin ([facility]) Class 3 severe obesity due to excess calories with serious comorbidity and body mass index (BMI) of45.0 to 49.9 in adult ([facility] [place]) Bipolar affective disorder, remission status unspecified ([facility]) Generalized anxiety disorder Generalized anxiety disorder Vitamin D deficiency Vitamin B12 deficiency Other B-complex deficiencies H/O bariatric surgery Acute non-recurrent pansinusitis Class 2 severe obesity due to excess calories with serious comorbidity and body mass index (BMI) of38.0 to 38.9 in adult ([facility] [place])- Primary Type 2 diabetes mellitus with other circulatory complications (HCC) Type 2 diabetes mellitus with stage 3a chronic kidney disease, without long-term current use of insulin ([facility]) Encounter for wellness examination in adult- Primary Encounter for screening mammogram for malignant neoplasm of breast Primary hypertension Unspecified essential hypertension Chronic diastolic heart failure (HCC) Chronic diastolic heart failure Stage 3b chronic kidney disease ([facility] [place]) Class 2 severe obesity due to excess calories with serious comorbidity and body mass index (BMI) of38.0 to 38.9 in adult ([facility] [place]) Type 2 diabetes mellitus with stage 3a chronic kidney disease, without long-term current use of insulin ([facility]) Mixed hyperlipidemia Mixed hyperlipidemia Type 2 diabetes mellitus with other circulatory complications ([facility])- Primary Type 2 diabetes mellitus with stage 3a chronic kidney disease, without long-term current use of insulin ([facility]) Type 2 diabetes mellitus with stage 4 chronic kidney disease, without long-term current use of insulin ([facility]) Type 2 diabetes mellitus without complication, without long-term current use of insulin ([facility]) Class 2 severe obesity due to excess calories with serious comorbidity and body mass index (BMI) of36.0 to 36.9 in adult ([facility] [place]) documented in this encounter [facility] HealthcareEvaluation note* Diagnosis Primary hypertension- Primary Unspecified essential hypertension Gastroesophageal reflux disease, unspecified whether esophagitis present Microscopic hematuria Lower extremity edema Edema Type 2 diabetes mellitus without complication, without long-term current use of insulin ([facility]) Stage 3 chronic kidney disease due to type 2 diabetes mellitus (HCC) Mixed hyperlipidemia Mixed hyperlipidemia Migraine without aura and without status migrainosus, not intractable Encounter for screening mammogram for malignant neoplasm of breast Colon cancer screening Special screening for malignant neoplasms, colon BMI 50.0-59.9, adult ([facility] [place]) Heel pain, bilateral Type 2 diabetes mellitus without complication, without long-term current use of insulin ([facility])- Primary History of anuria Stage 3 chronic kidney disease due to type 2 diabetes mellitus ([facility]) BMI 50.0-59.9, adult ([facility] [place]) URIEL (obstructive sleep apnea) Obstructive sleep apnea (adult) (pediatric) Primary hypertension Unspecified essential hypertension Chronic diastolic heart failure ([facility]) Chronic diastolic heart failure Depression, unspecified depression type Type 2 diabetes mellitus without complication, without long-term current use of insulin ([facility])- Primary Stage 3 chronic kidney disease due to type 2 diabetes mellitus ([facility]) BMI 50.0-59.9, adult ([facility] [place]) Lower extremity edema Edema Type 2 diabetes mellitus with stage 3 chronic kidney disease, without long-term current use of insulin, unspecified whether stage 3a or 3b CKD ([facility])- Primary Bipolar affective disorder, remission status unspecified ([facility]) Restless leg syndrome Restless legs syndrome (RLS) URIEL (obstructive sleep apnea) Obstructive sleep apnea (adult) (pediatric) Primary hypertension Unspecified essential hypertension Chronic diastolic heart failure ([facility]) Chronic diastolic heart failure Stage 3 chronic kidney disease due to type 2 diabetes mellitus ([facility]) Seasonal allergies Allergic rhinitis, cause unspecified BMI 50.0-59.9, adult ([facility] [place]) Type 2 diabetes mellitus with stage 4 chronic kidney disease, without long-term current use of insulin ([facility])- Primary Type 2 diabetes mellitus without complication, without long-term current use of insulin ([facility]) Left lower quadrant abdominal pain- Primary Morbid (severe) obesity due to excess calories ([facility] [place]) Body mass index (BMI) 45.0-49.9, adult ([facility] [place]) Restless leg syndrome Restless legs syndrome (RLS) Stage 3b chronic kidney disease ([facility] [place]) Type 2 diabetes mellitus with other circulatory complications ([facility])- Primary Type 2 diabetes mellitus with stage 4 chronic kidney disease, without long-term current use of insulin ([facility]) Type 2 diabetes mellitus with stage 3a chronic kidney disease, without long-term current use of insulin ([facility]) Class 3 severe obesity due to excess calories with serious comorbidity and body mass index (BMI) of45.0 to 49.9 in adult ([facility] [place]) Primary hypertension- Primary Unspecified essential hypertension Spinal stenosis of lumbar region at multiple levels Restless leg syndrome Restless legs syndrome (RLS) URIEL (obstructive sleep apnea) Obstructive sleep apnea (adult) (pediatric) Coronary arteriosclerosis Coronary atherosclerosis of unspecified type of vessel, big sandy or graft Stage 3b chronic kidney disease ([facility] [place]) Swelling of both lower extremities Lower extremity edema Edema Type 2 diabetes mellitus with stage 3a chronic kidney disease, without long-term current use of insulin ([facility]) Class 3 severe obesity due to excess calories with serious comorbidity and body mass index (BMI) of45.0 to 49.9 in adult ([facility] [place]) Bipolar affective disorder, remission status unspecified ([facility]) Generalized anxiety disorder Generalized anxiety disorder Vitamin D deficiency Vitamin B12 deficiency Other B-complex deficiencies H/O bariatric surgery Acute non-recurrent pansinusitis Class 2 severe obesity due to excess calories with serious comorbidity and body mass index (BMI) of38.0 to 38.9 in adult ([facility] [place])- Primary Type 2 diabetes mellitus with other circulatory complications ([facility]) Type 2 diabetes mellitus with stage 3a chronic kidney disease, without long-term current use of insulin ([facility]) Encounter for wellness examination in adult- Primary Encounter for screening mammogram for malignant neoplasm of breast Primary hypertension Unspecified essential hypertension Chronic diastolic heart failure ([facility]) Chronic diastolic heart failure Stage 3b chronic kidney disease ([facility] [place]) Class 2 severe obesity due to excess calories with serious comorbidity and body mass index (BMI) of38.0 to 38.9 in adult ([facility] [place]) Type 2 diabetes mellitus with stage 3a chronic kidney disease, without long-term current use of insulin ([facility]) Mixed hyperlipidemia Mixed hyperlipidemia Type 2 diabetes mellitus with other circulatory complications ([facility])- Primary Type 2 diabetes mellitus with stage 3a chronic kidney disease, without long-term current use of insulin ([facility]) Type 2 diabetes mellitus with stage 4 chronic kidney disease, without long-term current use of insulin ([facility]) Type 2 diabetes mellitus without complication, without long-term current use of insulin ([facility]) Class 2 severe obesity due to excess calories with serious comorbidity and body mass index (BMI) of36.0 to 36.9 in adult ([facility] [place]) Muscle spasm Spasm of muscle documented in this encounter [facility] HealthcareEvaluation note* Diagnosis Primary hypertension- Primary Unspecified essential hypertension Gastroesophageal reflux disease, unspecified whether esophagitis present Microscopic hematuria Lower extremity edema Edema Type 2 diabetes mellitus without complication, without long-term current use of insulin ([facility]) Stage 3 chronic kidney disease due to type 2 diabetes mellitus ([facility]) Mixed hyperlipidemia Mixed hyperlipidemia Migraine without aura and without status migrainosus, not intractable Encounter for screening mammogram for malignant neoplasm of breast Colon cancer screening Special screening for malignant neoplasms, colon BMI 50.0-59.9, adult ([facility] [place]) Heel pain, bilateral Type 2 diabetes mellitus without complication, without long-term current use of insulin ([facility])- Primary History of anuria Stage 3 chronic kidney disease due to type 2 diabetes mellitus ([facility]) BMI 50.0-59.9, adult ([facility] [place]) URIEL (obstructive sleep apnea) Obstructive sleep apnea (adult) (pediatric) Primary hypertension Unspecified essential hypertension Chronic diastolic heart failure ([facility]) Chronic diastolic heart failure Depression, unspecified depression type Type 2 diabetes mellitus without complication, without long-term current use of insulin ([facility])- Primary Stage 3 chronic kidney disease due to type 2 diabetes mellitus ([facility]) BMI 50.0-59.9, adult ([facility] [place]) Lower extremity edema Edema Type 2 diabetes mellitus with stage 3 chronic kidney disease, without long-term current use of insulin, unspecified whether stage 3a or 3b CKD ([facility])- Primary Bipolar affective disorder, remission status unspecified ([facility]) Restless leg syndrome Restless legs syndrome (RLS) URIEL (obstructive sleep apnea) Obstructive sleep apnea (adult) (pediatric) Primary hypertension Unspecified essential hypertension Chronic diastolic heart failure ([facility]) Chronic diastolic heart failure Stage 3 chronic kidney disease due to type 2 diabetes mellitus ([facility]) Seasonal allergies Allergic rhinitis, cause unspecified BMI 50.0-59.9, adult ([facility] [place]) Type 2 diabetes mellitus with stage 4 chronic kidney disease, without long-term current use of insulin ([facility])- Primary Type 2 diabetes mellitus without complication, without long-term current use of insulin ([facility]) Left lower quadrant abdominal pain- Primary Morbid (severe) obesity due to excess calories ([facility] [place]) Body mass index (BMI) 45.0-49.9, adult ([facility] [place]) Restless leg syndrome Restless legs syndrome (RLS) Stage 3b chronic kidney disease ([facility] [place]) Type 2 diabetes mellitus with other circulatory complications ([facility])- Primary Type 2 diabetes mellitus with stage 4 chronic kidney disease, without long-term current use of insulin ([facility]) Type 2 diabetes mellitus with stage 3a chronic kidney disease, without long-term current use of insulin ([facility]) Class 3 severe obesity due to excess calories with serious comorbidity and body mass index (BMI) of45.0 to 49.9 in adult ([facility] [place]) Primary hypertension- Primary Unspecified essential hypertension Spinal stenosis of lumbar region at multiple levels Restless leg syndrome Restless legs syndrome (RLS) URIEL (obstructive sleep apnea) Obstructive sleep apnea (adult) (pediatric) Coronary arteriosclerosis Coronary atherosclerosis of unspecified type of vessel, big sandy or graft Stage 3b chronic kidney disease ([facility] [place]) Swelling of both lower extremities Lower extremity edema Edema Type 2 diabetes mellitus with stage 3a chronic kidney disease, without long-term current use of insulin ([facility]) Class 3 severe obesity due to excess calories with serious comorbidity and body mass index (BMI) of45.0 to 49.9 in adult ([facility] [place]) Bipolar affective disorder, remission status unspecified ([facility]) Generalized anxiety disorder Generalized anxiety disorder Vitamin D deficiency Vitamin B12 deficiency Other B-complex deficiencies H/O bariatric surgery Acute non-recurrent pansinusitis Class 2 severe obesity due to excess calories with serious comorbidity and body mass index (BMI) of38.0 to 38.9 in adult ([facility] [place])- Primary Type 2 diabetes mellitus with other circulatory complications ([facility]) Type 2 diabetes mellitus with stage 3a chronic kidney disease, without long-term current use of insulin ([facility]) Encounter for wellness examination in adult- Primary Encounter for screening mammogram for malignant neoplasm of breast Primary hypertension Unspecified essential hypertension Chronic diastolic heart failure ([facility]) Chronic diastolic heart failure Stage 3b chronic kidney disease ([facility] [place]) Class 2 severe obesity due to excess calories with serious comorbidity and body mass index (BMI) of38.0 to 38.9 in adult ([facility] [place]) Type 2 diabetes mellitus with stage 3a chronic kidney disease, without long-term current use of insulin ([facility]) Mixed hyperlipidemia Mixed hyperlipidemia Type 2 diabetes mellitus with other circulatory complications ([facility])- Primary Type 2 diabetes mellitus with stage 3a chronic kidney disease, without long-term current use of insulin ([facility]) Type 2 diabetes mellitus with stage 4 chronic kidney disease, without long-term current use of insulin ([facility]) Type 2 diabetes mellitus without complication, without long-term current use of insulin ([facility]) Class 2 severe obesity due to excess calories with serious comorbidity and body mass index (BMI) of36.0 to 36.9 in adult ([facility] [place]) Restless leg syndrome Restless legs syndrome (RLS) documented in this encounter [facility] HealthcareEvaluation note* Diagnosis Onset Date Resolution Status Admit Date Diabetic nephropathy associated with typ e 2 diabetes mellitus acuteAugust 2024 9:38amHyperkalemiaacuteAugust 2024 9:38am HyperuricemiaacuteAugust 2024 9:38amHypomagnesemiaacuteAugust 2024 9:38amIron deficiencyacuteAugust 2024 9:38amLocalized edemaacuteAugust 2024 9:38amMorbid obesityacuteAugust 2024 9:38amStage 3b chronic kidney diseaseacuteAugust 2024 9:38amVitamin B12 deficiencyacuteAugust 2024 9:38amVitamin D deficiencyacuteAugust 2024 9:38amHypertensive nephropathyresolvedAugust 2024 9:38am [facility] Work Phone: Evaluation note* Diagnosis Primary hypertension- Primary Unspecified essential hypertension Gastroesophageal reflux disease, unspecified whether esophagitis present Microscopic hematuria Lower extremity edema Edema Type 2 diabetes mellitus without complication, without long-term current use of insulin ([facility]) Stage 3 chronic kidney disease due to type 2 diabetes mellitus ([facility]) Mixed hyperlipidemia Mixed hyperlipidemia Migraine without aura and without status migrainosus, not intractable Encounter for screening mammogram for malignant neoplasm of breast Colon cancer screening Special screening for malignant neoplasms, colon BMI 50.0-59.9, adult ([facility] [place]) Heel pain, bilateral Type 2 diabetes mellitus without complication, without long-term current use of insulin ([facility])- Primary History of anuria Stage 3 chronic kidney disease due to type 2 diabetes mellitus ([facility]) BMI 50.0-59.9, adult ([facility] [place]) URIEL (obstructive sleep apnea) Obstructive sleep apnea (adult) (pediatric) Primary hypertension Unspecified essential hypertension Chronic diastolic heart failure ([facility]) Chronic diastolic heart failure Depression, unspecified depression type Type 2 diabetes mellitus without complication, without long-term current use of insulin ([facility])- Primary Stage 3 chronic kidney disease due to type 2 diabetes mellitus ([facility]) BMI 50.0-59.9, adult ([facility] [place]) Lower extremity edema Edema Type 2 diabetes mellitus with stage 3 chronic kidney disease, without long-term current use of insulin, unspecified whether stage 3a or 3b CKD ([facility])- Primary Bipolar affective disorder, remission status unspecified ([facility]) Restless leg syndrome Restless legs syndrome (RLS) URIEL (obstructive sleep apnea) Obstructive sleep apnea (adult) (pediatric) Primary hypertension Unspecified essential hypertension Chronic diastolic heart failure (HCC) Chronic diastolic heart failure Stage 3 chronic kidney disease due to type 2 diabetes mellitus ([facility]) Seasonal allergies Allergic rhinitis, cause unspecified BMI 50.0-59.9, adult ([facility] [place]) Type 2 diabetes mellitus with stage 4 chronic kidney disease, without long-term current use of insulin ([facility])- Primary Type 2 diabetes mellitus without complication, without long-term current use of insulin ([facility]) Left lower quadrant abdominal pain- Primary Morbid (severe) obesity due to excess calories ([facility] [place]) Body mass index (BMI) 45.0-49.9, adult ([facility] [place]) Restless leg syndrome Restless legs syndrome (RLS) Stage 3b chronic kidney disease ([facility] [place]) Type 2 diabetes mellitus with other circulatory complications ([facility])- Primary Type 2 diabetes mellitus with stage 4 chronic kidney disease, without long-term current use of insulin ([facility]) Type 2 diabetes mellitus with stage 3a chronic kidney disease, without long-term current use of insulin ([facility]) Class 3 severe obesity due to excess calories with serious comorbidity and body mass index (BMI) of45.0 to 49.9 in adult ([facility] [place]) Primary hypertension- Primary Unspecified essential hypertension Spinal stenosis of lumbar region at multiple levels Restless leg syndrome Restless legs syndrome (RLS) URIEL (obstructive sleep apnea) Obstructive sleep apnea (adult) (pediatric) Coronary arteriosclerosis Coronary atherosclerosis of unspecified type of vessel, big sandy or graft Stage 3b chronic kidney disease ([facility] [place]) Swelling of both lower extremities Lower extremity edema Edema Type 2 diabetes mellitus with stage 3a chronic kidney disease, without long-term current use of insulin ([facility]) Class 3 severe obesity due to excess calories with serious comorbidity and body mass index (BMI) of45.0 to 49.9 in adult ([facility] [place]) Bipolar affective disorder, remission status unspecified ([facility]) Generalized anxiety disorder Generalized anxiety disorder Vitamin D deficiency Vitamin B12 deficiency Other B-complex deficiencies H/O bariatric surgery Acute non-recurrent pansinusitis Class 2 severe obesity due to excess calories with serious comorbidity and body mass index (BMI) of38.0 to 38.9 in adult ([facility] [place])- Primary Type 2 diabetes mellitus with other circulatory complications ([facility]) Type 2 diabetes mellitus with stage 3a chronic kidney disease, without long-term current use of insulin ([facility]) Encounter for wellness examination in adult- Primary Encounter for screening mammogram for malignant neoplasm of breast Primary hypertension Unspecified essential hypertension Chronic diastolic heart failure (HCC) Chronic diastolic heart failure Stage 3b chronic kidney disease ([facility]) Class 2 severe obesity due to excess calories with serious comorbidity and body mass index (BMI) of38.0 to 38.9 in adult ([facility]) Type 2 diabetes mellitus with [...] complication, without long-term current use of insulin ([facility]) Class 2 severe obesity due to excess calories with serious comorbidity and body mass index (BMI) of36.0 to 36.9 in adult ([facility]) Restless leg syndrome Restless legs syndrome (RLS) documented in this encounter [facility] HealthcareEvaluation note* Type Assessment Date No Information [facility] Work Phone: History and physical note* Clinical Note Date No Information [facility] Work Phone: History general Narrative - Reported* Type Description Date Medical History hypertension Medical HistoryDyslipidemia (high LDL; low HDL)Medical HistoryMRSA (methicillin resistant staph aureus) culture positiveMedical HistoryCervicalgiaMedical Historydepression with Bipolar IIMedical HistoryOSASurgical HistoryNeck Fusion 2015Surgical HistoryBack [id number] Historyleft Rotator [id number] Surgical HistoryTotal [id number] HistoryHeart [id number] HistoryTonsilectomyTeenagerHospitalization HistorySee Above PeopleJar Other History general Narrative - Reported* Type Description Date Medical History hypertension Medical HistoryDyslipidemia (high LDL; low HDL)Medical HistoryMRSA (methicillin resistant staph aureus) culture positiveMedical HistoryCervicalgiaMedical Historydepression with Bipolar IIMedical HistoryOSASurgical HistoryNeck Fusion 2016Surgical HistoryBack [id number] Historyleft Rotator [id number] Surgical HistoryTotal [id number] HistoryHeart [id number] HistoryTonsilectomyTeenagerSurgical HistoryLOW BACK SURGERY07/2021Hospitalization HistorySee Above PeopleJar Other History of Past illness Narrative* Condition Effective Dates (start - stop) O utcome No Information [facility] Work Phone: Hospital Discharge instructionsAmbulatory Orders* AMB POC Hgb A1C Time Frame: 02/10/25, Location: Determined By Patient [facility] Work Phone: Hospital Discharge instructionsAmbulatory Orders* Referral to Orthopedic Surgery Time Frame: 02/18/25, Location: None Selected [facility] Work Phone: Instructions* Date Instruction Additional Infor mation No Information [facility] Work Phone: Progress note* Clinical Note Date No Information [facility] Work Phone: Reason for referral (narrative)No reason for referral information [facility] Work Phone: Rereor for referral (narrative)* Reason For Referral No Information [facility] Work Phone: Review of systems Narrative - Reported* System Pos/Neg Findings No Information [facility] Work Phone: Summary Purpose Family History [...] No Information Hospital Course Note MR#: [id number] [facility] Pt. Name: Sherly Humphreys Admitted: [...] Diagnosis 1 Thoracic myelopathy (M47.14) Referral Organization [facility] urosurger Referring Provider First Name Christian Referring Provider Last Name Alfonso Referring Provider Specialty Neurologica l Surgery Referred Organization [facility] Referred Provider Ivan Sams Referred Address [address],[address] Referred Provider Specialty Pain Medicin e Referral Priority Routine General Notes Andreas Davisonn 023 12:45:54 PM >Received today and sent P2P Kristal Veloz 05/16/2022 02:01:28 PM >pt has been scheduled 06/02/22 [facility] Nini 06/05/2022 09:01:37 AM >Patient was a no show to her appt Andreas Davisonn 06/13/2022 11:23:40 AM >Telephone encounter was sent Reason Evaluate and Treat B ilateral Low Back Pain Diagnosis 1 Low back pain (M54.5 ) Referral Organization [facility] Referring Provider First Name Christian Referring [...] Failure Acute Renal Failure N17.9 N18.9 F/U [facility] RENAL hx of colon polypsReason for [...] 2024 8:42am Stage 3b chronic kidney disease [facility] 8:42am Chief Complaint Admit Date E87.5 E79.0 [...] content) DATE CREATED AUTHOR 11/22/2018 [facility] DATE CREATED AUTHOR AUTHOR'S ORGANIZ ATION 09/22/2022 [facility] DATE CREATED AUTHOR AUTHOR'S ORGANIZ ATION 05/26/2023 [facility] DATE CREATED AUTHOR AUTHOR'S ORGANIZ ATION 11/04/2024 [facility] EPIC DATE CREATED AUTHOR AUTHOR'S ORGANIZ ATION 12/16/2024 [facility] DATE CREATED AUTHOR AUTHOR'S ORGANIZ ATION 01/31/2025 [facility] DATE CREATED AUTHOR AUTHOR'S ORGANIZ ATION 02/06/2025 [facility] DATE CREATED AUTHOR AUTHOR'S ORGANIZ ATION 02/11/2025 [facility] Include [facility] At [facility] REASON FOR VISIT (unrecogniz [...] November 18, 2024 End: November 18mono Mac MDAttending ProviderActiveStart: November 18, 2024 End: [...] Primary Care Provider Active Merissa Hernandez , CLOTH FRAMER-BCEmergency ProviderActive Team Status: Inactive Member Role Status [...] Markel Haq MD [address] [place] [address] PCP - GeneralFamily Medicine05/03/23 Janene Lew NP [address] [place] [address] PCP - [facility] [employer]09/15/23Team MemberRelationshipSpecialtyStart DateEnd Date Markel Haq MD [address] [place] [address] PCP - GeneralFamily Medicine05/03/23 Janene Lew NP [address] [place] [address] PCP - [facility] [employer]09/15/23Team MemberRelationshipSpecialtyStart DateEnd Date Markel Haq MD [address] [place] [address] PCP - Generalmily Medicine05/03/23 Janene Lew NP [address] [place] [address] PCP - [facility]09/15/23Team MemberRelationshipSpecialtyStart DateEnd Date Markel Haq MD [address] [place] [address] PCP - GeneralFamily Medicine05/03/23 Janene Lew NP [address] [place] [address] PCP - [facility]09/15/23Team MemberRelationshipSpecialtyStart DateEnd Date Markel Haq MD [address] [place] [address] PCP - GeneralFamily Medicine05/03/23 Janene Lew NP [address] [place] [address] PCP - [employer]09/15/23Team MemberRelationshipSpecialtyStart DateEnd Date Markel Haq MD [address] [place] [address] PCP - GeneralFamily Medicine05/03/23 Janene Lew NP [address] [place] [address] PCP - [employer]09/15/23Team MemberRelationshipSpecialtyStart DateEnd Date Markel Haq MD [address] [place] [address] PCP - GeneralFamily Medicine05/03/23 Janene Lew NP [address] [place] [address] PCP - [employer]09/15/23Team MemberRelationshipSpecialtyStart DateEnd Date Markel Haq MD [address] [place] [address] [facility] Janene Lew NP [address] [place] [address] PCP - [employer]09/15/23Team MemberRelationshipSpecialtyStart DateEnd Date Markel Haq MD [address] [place] [address] PCP - Generalmi Medicine05/03/23 Janene Lew NP [address] [place] [address] PCP - [employer]09/15/23Team MemberRelationshipSpecialtyStart DateEnd Date Markel Haq MD [address] [place] [address] PCP - GeneralFamily Medicine05/03/23 Janene Lew NP [address] [place] [address] PCP - [employer]09/15/23Team MemberRelationshipSpecialtyStart DateEnd Date Markel Haq MD [address] [place] [address] PCP - GeneralFamily Medicine05/03/23 Janene Lew NP [address] [place] [address] PCP - [employer]09/15/23Team MemberRelationshipSpecialtyStart DateEnd Date Markel Haq MD [address] [place] [address] [facility]/23 Janene Lew, ELIER [address] [place] [address] PCP - [employer]09/15/23Team MemberRelationshipSpecialtyStart DateEnd Date Markel Haq MD [address] [place] [address] PCP - GeneralFamily Medicine05/03/23 Janene Lew NP [address] [place] [address] PCP - [employer]09/15/23Team MemberRelationshipSpecialtyStart DateEnd Date Markel Haq MD [address] [place] [address] PCP - GeneralFamily Medicine05/03/23 Janene Lew NP [address] [place] [address] PCP - [employer]09/15/23Team MemberRelationshipSpecialtyStart DateEnd Date Markel Haq MD [address] [place] [address] PCP - GeneralFamily Medicine05/03/23 Janene Lew NP [address] [place] [address] PCP - [employer]09/15/23Team MemberRelationshipSpecialtyStart DateEnd Date Markel Haq MD [address] [place] [address] [facility]/23 Janene Lew NP [address] [place] [address] PCP - [employer]09/15/23Team MemberRelationshipSpecialtyStart DateEnd Date Markel Haq MD [address] [place] [address] PCP - GeneralFamily Medicine05/03/23 Janene Lew NP [address] [place] [address] PCP - [employer]09/15/23Team MemberRelationshipSpecialtyStart DateEnd Date Markel Haq MD [address] [place] [address] PCP - GeneralFamily Medicine05/03/23Team MemberRelationshipSpecialtyStart DateEnd Date Markel Haq MD [address] [place] [address] PCP - GeneralFamily Medicine05/03/23Team MemberRelationshipSpecialtyStart DateEnd Date Markel Haq MD [address] [place] [address] PCP - GeneralFamily Medicine05/03/23Team MemberRelationshipSpecialtyStart DateEnd Date Markel Haq MD [address] [place] [address] PCP - GeneralFamily Medicine05/03/23Team MemberRelationshipSpecialtyStart DateEnd Date Markel Haq MD [address] [place] [address] PCP - GeneralFamily Medicine05/03/23Team MemberRelationshipSpecialtyStart DateEnd Date Markel Haq MD [address] [place] [address] PCP - GeneralFamily Medicine05/03/23Team MemberRelationshipSpecialtyStart DateEnd Date Markel Haq MD [address] [place] [address] PCP - [facility] Medicine05/03/23Team MemberRelationshipSpecialtyStart DateEnd Date Markel Haq MD [address] [place] [address] PCP - [facility] Medicine05/03/23Team MemberRelationshipSpecialtyStart DateEnd Date Markel Haq MD [address] [place] [address] PCP - [facility]05/03/23 Team Status: Inactive Member Role Status Dates Janene Lew Primary Care Provider Active Sta rt: November 26, 2024 End: November 26Tarah Ochoa ProviderActiveStart: November 26, 2024 End: November 26, 2024Team MemberRelationshipSpecialtyStart DateEnd Date Markel Haq MD [address] [place] [address] PCP - [facility]05/03/23 Name Effective Dates (start - stop) [...] Member Role/Relationship Status Dates Janene Lew , CORRECTIONAL SECURITY OFFICER-C Primary Care Provider Active Start: November 26, 2024 End: November 26mono Mac MDAttending ProviderActiveStart: November 26, 2024 End: November 26, 2024 Team Status: Inactive Member Role/Relationship Status Dates Janene Lew , CORRECTIONAL SECURITY OFFICER-C Primary Care Provider Active Start: December 16, 2024 End: December 16, 2024Janene Lew , CORRECTIONAL SECURITY OFFICER-CAttending ProviderActiveStart: December 16, 2024 End: December 16, 2024 Team Status: Active Member Role/Relationship Status Dates Janene Lew , CORRECTIONAL SECURITY OFFICER-C Primary Care Provider Active Start: January 13, 2025 Marcella Conway , MDAttending ProviderActiveStart: January 13, 2025 Team Status: Active Member Role/Relationship Status Dates Janene Lew , CORRECTIONAL SECURITY OFFICER-C Primary Care Provider Active Start: February 04, 2025 Valdemar Alonso , MDAttending ProviderActiveStart: February 04, 2025 Team Status: Inactive Member Role/Relationship Status Dates Janene Lew , CORRECTIONAL SECURITY OFFICER-C Primary Care Provider Active Start: February 10, 2025 End: February 10, 2025Janene Lew , CORRECTIONAL SECURITY OFFICER-CAttending ProviderActiveStart: February 10, 2025 End: February 10, 2025Team MemberRelationshipSpecialtyStart DateEnd Date Markel Haq MD PCP - [facility]05/03/23 Janene Lew NP [address] [place] [address] [facility] MemberRelationshipSpecialtyStart Date End Date Markel Haq MD PCP - [facility]05/03/23 Janene Lew NP [address] [place] [address] [facility] Member[facility]hipSpecialtyStart Date End Date Markel Haq MD PCP - [facility]05/03/23 Janene Lew NP [address] [place] [address] PCP - [facility] Team Status: Inactive Member Role/Relationship Status Dates Janene Lew CORRECTIONAL SECURITY OFFICER-C Primary Care Provider Active Start: November 26, 2024 End: November 26mono Mac MDAttending ProviderActiveStart: November 26, 2024 End: November 26, 2024 Team Status: Inactive Member Role/Relationship Status Dates Janene Lew CORRECTIONAL SECURITY OFFICER-C Primary Care Provider Active Start: December 16, 2024 End: December 16, 2024Janene Lew CORRECTIONAL SECURITY OFFICER-CAttending ProviderActiveStart: December 16, 2024 End: December 16, 2024 Team Status: Active Member Role/Relationship Status Dates Janene Lew CORRECTIONAL SECURITY OFFICER-C Primary Care Provider Active Start: January 13, 2025 Marcella Conway , MDAttending ProviderActiveStart: January 13, 2025 Team Status: Inactive Member Role/Relationship Status Dates Janene Lew CORRECTIONAL SECURITY OFFICER-C Primary Care Provider Active Start: February 10, 2025 End: February 10, 2025Janene Lew CORRECTIONAL SECURITY OFFICER-CAttending ProviderActiveStart: February 10, 2025 End: February 10, 2025 Team Status: Active Member Role/Relationship Status Dates Janene Lew CORRECTIONAL SECURITY OFFICER-C Primary Care Provider Active Start: February 10, [...] BE BASED ON THE PRIMARY CLINICAL RECORDS. [employer] provides no warranty or guarantee of the accuracy or completeness of information in this document.
[2025-03-23 09:34] VITALS: BP 131/84; PULSE 60; TEMP 36.7; O2SAT 99
[2025-03-23] MEDS: FAMOTIDINE/PF 20 MG/2 ML VIAL IV (10:28)
[2025-03-23] MEDS: CEFAZOLIN SODIUM/DEXTROSE,ISO 1 GM/50 ML PREMIX IV (10:40)
[2025-03-23] MEDS: IOHEXOL 240 MG/ML - 10 ML VIAL INJ (12:00)
--- NOTE | 2025-03-23 12:24 | W.PM.PROCNOT ---
Date of procedure: 03/23/25 Pre-op diagnosis: M96.1 Post-op diagnosis: same as pre-op Procedure: Procedure Performed by: Elza Conway M.D. Procedure: Placement of [email or web address] 16 contact neuroelectrode leads (x two) and Impulse Generator Battery under fluoroscopic guidance *Needle [employer]writer at the interspace below T11/12 *Final Lead Placement Level at the bottom of the vertebral body T6 *Battery Placement on the Left Side Indication: Pain due to lumbar post laminectomy syndrome following a successful Stimulator Trial Anesthesia: Monitored Anesthesia Care is medically necessary for the procedure due to the procedure requiring the patient to remain motionless for a prolonged period of time. Procedure: Risks, Benefits, Alternatives were reviewed and informed consent was obtained in the preop holding area. All questions were answered appropriately. The patient was brought to the operating room and placed in the prone position with padding under all bony prominences. A pre-procedure time out was performed specifying pt. name, nature site and side of surgery, and allergies. Anesthesia provided appropriate sedation as the skin over the thoracic and lumbar spine were prepped and draped in the usual sterile fashion. Under fluoroscopic guidance, the needle clerk entry level interspace noted above was identified as the site for epidural needle entry. The skin and subcutaneous tissues were anesthetized approximately 1 level inferior to this point with a mixture of 1% lidocaine and 0.25% bupivacaine. A 14 gauge tuohy needle was inserted to the superior aspect of the lamina just inferior to the target interspace. Then, using loss of resistance technique as well as fluoroscopic guidance, the epidural space was entered. Two [employer] Leads were then advanced under intermittent fluoroscopic guidance until the distal tip of the electrode was observed to be in position at the location noted above. After appropriate electrode placement was achieved, stimulation was tested intraoperatively with multiple lead configurations until concordant paresthesias were obtained covering the areas of the patient's pain. Intraoperative analysis and programming of the neurostimulator pulse generator was completed by the physician and the client services representative from [employer]. Next, the skin approximately 1cm superior to the needle entry point and 3cm distal to the needle entry point were anesthetized with 1% lidocaine and 0.25% bupivacaine. An incision was made along this area exposing the underlying fascia. Hemostasis was achieved. A small horizontal incision was made in the subcutaneous tissue overlying the posterior ilium after local anesthetic was infiltrated with 1% lidocaine and 0.25% bupivacaine mixture. A small pocket was made in the subcutaneous fat using blunt dissection. Hemostasis was obtained. A stimulator battery/implantable generator was then placed into the small pocket and attached to the electrodes. Testing was performed to ensure adequate connection between the electrodes and battery. After testing was completed, the two incisions were sutured with Vicryl 3-0 for deep tissue and Vicryl 4-0 for epidermis. The incisions were covered with sterile bandages. The patient was then taken to the recovery area in good condition. Anesthesia: MAC Surgeon: Elza Conway Pathology: none sent Condition: stable Disposition: no change
[2025-03-23 12:31] VITALS: BP 179/86; PULSE 74; TEMP 36.3; O2SAT 96
[2025-03-23 12:35] VITALS: BP 141/79; PULSE 72; TEMP 36.3; O2SAT 96
[2025-03-23] MEDS: VANCOMYCIN HCL 1,500 MG in 0.9 % SODIUM CHLORIDE 500 ML 250 MG IV (13:26)
[2025-03-23] MEDS: 0.9 % SODIUM CHLORIDE 500 ML IV (13:27)
--- NOTE | 2025-03-23 13:41 | PC.NURSE ---
Pt remains in recovery for additional ATB of vanco to be administered. Additional IV obtained to left AC for this. Pt was able to ambulate to restroom with assistance with minimal pain and steady on feet. Education completed to her and sister at bedside by nursing and [employer] reps.
== END 2025-03-23 15:40 | disposition home or self-care (01) ==
LOC: SURGOUT 09:03
PROVIDERS: PCP Nurse Practitioner; Visit Provider Anesthesiology
DX: M96.1 Postlaminectomy syndrome, not elsewhere classified (principal); E11.9 Type 2 diabetes mellitus without complications; Z98.84 Bariatric surgery status; Z90.710 Acquired absence of both cervix and uterus; G47.33 Obstructive sleep apnea (adult) (pediatric); E78.5 Hyperlipidemia, unspecified; I25.10 Atherosclerotic heart disease of native coronary artery without angina pectoris; Z95.5 Presence of coronary angioplasty implant and graft; I50.9 Heart failure, unspecified; I11.0 Hypertensive heart disease with heart failure
CPT/HCPCS: 36415; 63650; 63685; 82948; C1820; J0690; J1100; J2250; J2405; J2704; J3010; J3373; J3490; Q9966

== ENCOUNTER 2025-04-06 11:48 | Outpatient (OUT) | payer BC, SELFPAY ==
--- OUTSIDE RECORDS SUMMARY | 2024-02-29 04:00 | XMS_ITS ---
Author Organization [facility] Address [address] [place] [address] Care Team Providers Care Rehabilitator Name Role Phone ELIZABETH DIAMOND CNP Primary Care Provider Leatha Garrison [phone] REASON FOR VISIT LUMBAR PAIN Encounters Encounter Location Date Provider Diagnosis [facility] Office [address] [place] [address] [place] [address] 02/29/2024 Leatha Hernandez Lumbar pain M54.50 Assessments Encounter Date Diagnosis (ICD Code) Assessment Notes Treatment Notes Treatment Clinical Notes Section Notes 02/29/2024 Lumbar pain (ICD-10 - M54.50) Plan Of Treatment Pending Test Test Name Order Date Lumbar spine, 4v flex ext - 52310 2023 Progress Notes * SHARLENE HUMPHREYS ADOB: [birth year] (54 yo F)Acc No.[id number]:02/29/2024 Patient:?SHARLENE HUMPHREYS :?Leatha Loya MD, PhDDOB:1970 ???Age:53 Y???Sex:FemaleDate:4Phone:[phone]:[address], [place]Uey:ELIZABETH DIAMOND CNP Subjective: * Chief Complaints: * 1 . LUMBAR PAIN. * Medical History: Objective: * Vitals: Assessment: * Assessment: 1.?Lumbar pain - M54.50 (Primary)??? Plan: * Treatment: ?Imaging: Lumbar spine, 4v flex ext - 74732 Forms: * Images: * Electronic signature of Leatha Hernandez MD, PHD on 04/06/2025 at 11:52 AM EST Sign off status: Pending * Provider: Lizet Loya MD, PhD Date: 04/30/2023 Generated for Printing/Faxing/eTransmitting on:?04/06/2025 11:52 AM EST
--- OUTSIDE RECORDS SUMMARY | 2024-03-21 04:00 | XMS_ITS ---
Author Organization [facility] Address [address] [place] [address] Care Team Providers Care Government Minister Name Role Phone ELIZABETH DIAMOND CNP Primary Care Provider Leatha Garrison Unavailable [phone] REASON FOR VISIT LUMBAR PAIN Encounters Encounter Location Date Provider Diagnosis [facility] Office [address] [place] [address] [place] [address] 03/21/2024 Leatha Hernandez Plan Of Treatment Pending Test Test Name Order Date Lumbar spine, 4v flex ext - 70849 2023 Progress Notes * SHARLENE HUMPHREYS ADOB: [birth year] (54 yo F)Acc No.[id number]:03/21/2024 Patient:?SHARLENE HUMPHREYS :?Leatha Loya MD, PhDDOB:1970 ???Age:53 Y???Sex:FemaleDate:4Phone:[phone]:[address] [place], [place]Rie:ELIZABETH DIAMOND CNP Subjective: * Chief Complaints: * 1 . LUMBAR PAIN. * Medical History: Objective: * Vitals: Assessment: Plan: * Treatment: ?Imaging: Lumbar spine, 4v flex ext - 31577 Forms: * Images: * Electronic signature of Leatha Hernandez MD, PHD on 04/06/2025 at 11:52 AM EST Sign off status: Pending * Provider: Lizet Loya MD, PhD Date: 1 05/22/2023 Generated for Printing/Faxing/eTransmitting on:?04/06/2025 11:52 AM EST
--- OUTSIDE RECORDS SUMMARY | 2024-04-04 05:30 | XMS_ITS ---
Author Organization [facility] Address [address] [place] [address] Care Team Providers Care Display Designer Outside Name Role Phone ELIZABETH DIAMOND CNP Primary Care Provider Leatha Garrison Unavailable [phone] REASON FOR VISIT BACK PAIN , SCS CONSULT, MRI/DREW Encounters Encounter Location Date Provider Diagnosis [facility] [address] [place] [address] [place] [address] 04/04/2024 Leatha Hernandez Plan Of Treatment Pending Test Test Name Order Date Lumbar spine, 4v flex ext - 52802 2023 Progress Notes * SHARLENE HUMPHREYS ADOB: [birth year] (54 yo F)Acc No.[id number]:04/04/2024 Patient:SHARLENE SOLOMON :?Leatha Loya MD, PhDDOB:1970 ???Age:53 Y???Sex:FemaleDate:4Phone:[phone]:[address] [place]Quq:ELIZABETH DIAMOND CNP Subjective: * Chief Complaints: * 1 . BACK PAIN , SCS CONSULT, MRI/DREW. * Medical History: Objective: * Vitals: Assessment: Plan: * Treatment: ?Imaging: Lumbar spine, 4v flex ext - 00100 Forms: * Images: * Electronic signature of Leatha Hernandez MD, PHD on 04/06/2025 at 11:52 AM EST Sign off status: Pending * Provider: Lizet Loya MD, PhD Date: 1 06/05/2023 Generated for Printing/Faxing/eTransmitting on:?04/06/2025 11:52 AM EST
--- OUTSIDE RECORDS SUMMARY | 2025-03-26 10:39 | XMS_ITS | Continuity of Care Document ---
Author Organization [facility] Address [address] [place] [address] Phone Care Team Providers Care Physical Science Aide Name Role Phone Janene Lew NP-C Primary Care Provider Elza Conway MD Attending Provider Janene Lew NP-C Attending Provider Valdemar Alonso MD Attending Provider Care Teams Patient Care Team Team Status: Active Member Role/Relationship Status Dates Janene Lew NP-C Primary Care Provider Active Visit Care Team Team Status: Active Member Role/Relationship Status Dates Janene Lew NP-C Primary Care Provider Active Start: January 13, 2025 Tarah Case ProviderActiveStart: January 13, 2025 Visit Care Team Team Status: Inactive Member Role/Relationship Status Dates Janene Lew NP-C Primary Care Provider Active Start: February 10, 2025 End: February 10, 2025Grant Paredestengunjan ProviderActiveStart: February 10, 2025 End: February 10, 2025 Visit Care Team Team Status: Inactive Member Role/Relationship Status Dates Janene Lew NP-C Primary Care Provider Active Start: February 18, 2025 End: February 18, 2025Janene Lew NP-CAttengunjan ProviderActiveStart: February 18, 2025 End: February 18, 2025 Visit Care Team Team Status: Active Member Role/Relationship Status Dates COLLINS Paredes Primary Care Provider Active Start: March 09, 2025 Valdemar Alonso , MDAttending ProviderActiveStart: March 09, 2025 Visit Care Team Team Status: Active Member Role/Relationship Status Dates COLLINS Paredes Primary Care Provider Active Start: March 18, 2025 Elza LewisTADEO duranttending ProviderActiveStart: March 18, 2025 Patient Care Team Team Status: Inactive Member Role/Relationship Status Dates COLLINS Paredes Primary Care Provider Active Start: March 26, 2025 End: March 26, 2025Janene Lew NP-CAtdane ProviderActiveStart: March 26, 2025 End: March 26, 2025 Chief Complaint and Reason for Visit Chief Complaint Admit Date 2M February 10, 2025 9 :08am sharp pain from shoulder through hand No vember 2024 11:17am BH March 09, 2025 10:07am 6W March 26, 2025 2:35pm Reason for Visit Admit Date Coronary artery disease February 10 9:08am 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 February 10, 2025 9:08am Hypertension February 10, 2025 9 :08am Intractable back pain February 10, 2025 9:08am Morbid obesity February 10, 2025 9 :08am RLS (restless legs syndrome) January 9:08am Stage 3b chronic kidney disease February 10, 2025 9:08am Chronic left shoulder pain February 18, 2025 11:17am Chronic left shoulder pain March 2:35pm Coronary artery disease March 26, 2 025 2:35pm 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 March 26, 2025 2:35pm Diastolic heart failure March 26, 2 025 2:35pm Hypertension March 26, 2025 2:35pm Morbid obesity March 26, 2025 2:35pm URIEL (obstructive sleep apnea) March 162024 2:35pm Stage 3b chronic kidney disease March 26, 2025 2:35pm Allergies, Adverse Reactions, Alerts Allergen Type Severity Reaction Last Updated Verified Status Comments Penicillins Allergy Unknown Rash November 26, 2024 7:36am Yes Active prochlorperazineAllergyUnknownSeizureAugust 2024 7:36amYesActive promethazineAllergyUnknownSeizureAugust 2024 7:36amYesActive sulfamethoxazoleAllergyUnknownRashAugust 2024 7:36amYesActivetrimethoprim AllergyUnknownRashAugust 2024 7:36amYesActivezolpidemAllergyUnknownUnknown ReactionAugust 2024 7:36amYesActiveper ptempagliflozinAllergyUnknown Unknown ReactionAugust 2024 7:36amYesActivemetforminAllergyUnknownDiarrhea February 18, 2025 11:24amYesActive Social History Smoking Status Status Start Date End Date Date of Observa tion Never smoked tobacco (finding) November 01, 2023 7:39am Observation Status Observation Response Date of Response Legal Sex Female (finding) Sex Assigned At BirthFemaleSept1970 Family History Relationship Condition Age at Onset Recorded Date/T antony mother Malignant neoplasm of head and neck Unkno wn Diabetes mellitusUnknownMyocardial infarctionUnknownsisterDiabetes mellitus UnknownMyocardial infarctionUnknownfatherMyocardial infarctionUnknownbrother Myocardial infarctionUnknownbrotherFamily history of mental disorderUnknown HypertensionUnknownfatherHeart diseaseUnknownFamily history of mental disorder UnknownHypertensionUnknownDeceasedUnknownmotherHypertensionUnknownHistory of strokeUnknownDiabetes mellitusUnknownFamily history of mental disorderUnknown Malignant neoplasmUnknownDeceasedUnknownsisterFamily history of mental disorder UnknownDiabetes mellitusUnknownHypertensionUnknown Problems Active Problems Problem Diagnosis/Recorded Date Onset Date Stat Stage 3b chronic kidney disease July 11, 2023 6:19a m Unknown Active URIEL (obstructive sleep apnea) March 26, 2025 7:11 am Unknown Active Displacement of lumbar inter vertebral disc with radiculopathy August 13, 2021 6:40am Unknown Active History of PTCA August 11, 2021 8:27am Unknown A ctive Localized edema July 11, 2023 6:19am Unknown A ctive Morbid obesity July 11, 2023 6:20am Unknown Ac tive Vitamin B12 deficiency August 15, 2023 9:07am Unknown Active Coronary artery disease August 11, 2021 8:27am Unknow n Active Intractable back pain August 10, 2021 5:19pm Unknown Active Hyperlipidemia February 25, 2020 3:54pm Unknown Active Hyperuricemia August 15, 2023 9:19am Unknown Active Diastolic heart failure March 26, 2025 7:08am Unk nown Active 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 July 11, 2023 6:19am Unknown Active Headache, tension-type February 25, 2020 9:32pm Unkn own Active RLS (restless legs syndrome) January 30, 2025 2:47pm Unknown Active Radiculopathy June 24, 2022 5:57pm Unknown Act erika Acute kidney injury superimposed on CKD September 30 4:25am Unknown Active Declining functional status August 10, 2021 5:19pm Un known Active Chronic left shoulder pain February 18, 2025 11:46am Unknown Active Herniation of 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 August 10, 2021 3:42pm Unknown Active Chest pain June 04, 2021 10:53pm Unknown Active Hypertension August 10, 2021 5:19pm Unknown Acti ve Vitamin D deficiency August 15, 2023 9:07am Unknown Active Hyperkalemia October 16, 2023 12:14pm Unknown Activ e Iron deficiency August 15, 2023 9:07am Unknown Acti ve Hypomagnesemia August 15, 2023 9:19am Unknown Activ e Inactive/Resolved Problems Problem Diagnosis/Recorded Date Onset Date Stat us Anemia of renal disease October 01, 2023 1:28pm Unknown Resolved Hypertensive nephropathy July 11, 2023 6:18am Unkno wn Resolved Medications Medication Status Dose Units Route Directions Qty Days Refills S tart Date Stop Date End Date Reason(s) Instructions Adherence Tizanidine 4 mg tablet Active 4 MG PO Every 8 h ours as needed for muscle spasm 90 1October 2024 2:46pmHerniation of lumbar intervertebral disc with radiculopathy Intervertebral disc disorders with radiculopathy, lumbar regionComplies with drug therapyRopinirole 0.25 mg tabletDiscontinued0.25MGPODaily at January 30, 2025 2:46pmOctober 2024 9:05amRestless legs syndrome Restless legs syndromeGabapentin 600 mg lnpqiwLranuk130CFWZNtwjn 12 hours as needed for restless leg(s)March 23, 2025 7:03pmRestless legs syndrome Herniation of lumbar intervertebral disc with radiculopathy Restless legs syndrome Intervertebral disc disorders with radiculopathy, lumbar regionComplies with drug therapyAtorvastatin 40 mg gjkgwgGyueeefisrzg81CMUTQirffkiBlzuuphu 2021 12:00amMay 2023 9:06amTizanidine 4 mg eadgtoCufjclfukxdq3OLIEJvsejaj June 04, 2021 12:00amApril 2021 1:52pmIsosorbide Mononitrate 30 mg tablet extended release 24 drGxdmniwdzgib59PIGDBashpLtclyflh 2021 12:00am October 02, 2023 9:56amBuspirone 30 mg vwplevTlelez26WAQQAdhnw dailyFebruary 2021 12:00amComplies with drug therapyMirtazapine 15 mg tabletDiscontinued 30MGPOBedtimeFebruary 2021 12:00amMay 2023 9:11amMetoprolol Succinate 25 mg tablet extended release 24 flRylpyh73.5MGPODailyFebruary 2021 12:00amComplies with drug therapyPioglitazone 30 mg rodbkrDgfnbupkywxf23GRXX DailyFebruary 2021 12:00amMay 2023 9:05amLisinopril 40 mg tablet Tqzjeczahllr19EMABPmnvuThptdfnm 2021 12:00amMay 2023 9:09am Fluticasone Propionate 50 mcg/actuation spray,lfdrkamjibFinzsbzriqvu5XSTNF INTRANASALDailyFebruary 2021 12:00amJuly 2023 12:14pmGlipizide 5 mg oxahkbKsxnjprztall0DWLQUfnqjYyphbcqb 2021 12:00amMay 2023 9:08am Aripiprazole 30 mg mtbyxdKnhkdikiapab81SJEZWcbirJhjsuwcd 2021 12:00amMay 2023 9:05amFenofibrate Nanocrystallized 145 mg ynuwrnCtkrjj976XALRVicnk February 2021 12:00amComplies with drug therapyCetirizine (Zyrtec) 10 mg CzrwkwCcffps37RROBIeeniNqpwfqja 2021 12:00amComplies with drug therapy Aspirin 81 mg tablet,delayed release (DR/EC)Qmulhl75UAAMXaofr583Yrvmzkmr 2021 12:00amComplies with drug therapyFluticasone Propionate 50 mcg/actuation spray,hutszohpzpFdmimv6CKJSCOZUDIDSJZPOfbzz as needed for allergy symptomsJuly 2023 12:10pmComplies with drug therapyCyclobenzaprine 10 mg tablet Gbqvlywojdwo16NAYDGvvxr times daily as needed for back xxenji051Kjdae 2021 11:00pmMarch 2022 5:53pmCiprofloxacin Hcl (Cipro) 500 mg Tablet Hodosuuqtvbk425GQOEJ07R333Amhlf 2021 11:00pmMay 2023 9:07amadminister dose at least 2 hrs before/6 hrs after dairy products, calcium, zinc, and/or iron-containing productsOxycodone 5 mg TabletDiscontinued5 - 19XRXWE7F as needed for Slxh5490Tflox 2021March 2022 5:53pmHerniation of lumbar intervertebral disc with radiculopathy Intervertebral disc disorders with radiculopathy, lumbar regionPrednisone 10 mg tablets,dose kjlxClwxzdckwwyv0wwed pkPOper package tbtsnccoxo615Eyuii 2021 11:00pmMarch 2022 5:53pmtake 4 tabs for 3 days then take 3 tabs for 3 days then take 2 tabs for 3 days then take 1 tab for 3 daysCyanocobalamin (Vitamin B-12) 2,500 mcg tablet, ydsoioqoolOorzsehgkspj9798VADNXIMALZODFCbyfnIuuj 2023 11:00pmNovember 2023 9:47amFluoxetine 10 mg gfjyrlsVvzwmkxqcjbb45UXXFMfbdxJudw 2023 11:00pmJuly 2023 12:08pmOxycodone-Acetaminophen 7.5-325 mg tablet Zcfjxtjllpyu4DXPQWYnrhu 8 hoursJune 2023 11:00pmJuly 2023 12:14pm Spironolactone 25 mg dpvbslRxrpridktruv85UMQJZifffYlgq 2023 11:00pmJune 2023 9:55amOn Hold: Until cleared by NephrologyTirzepatide (Mounjaro) 2.5 mg/0.5 mL pen injectorDiscontinued2.5MGSUBCUT.weeklyJune 2023 11:00pmJuly 2023 12:12pmMometasone (Allergy Nasal (Mometasone)) 50 mcg/actuation spray,non-ftttsuwMyrpotxlgekr7CVXWZMMUPEBNKWVJuqwaUmlf 2023 11:00pmJuly 2023 12:11pmadminister into each nostrilPramipexole 0.25 mg tablet Discontinued0.25MGPODaily at bedtimeJune 2023 11:00pmJuly 2023 12:12pmSacubitril-Valsartan (Entresto) 49-51 mg vnwgfdLbkxgmdmfxtn2MYEIYUflqn dailyJune 2023 11:00pmJuly 2023 12:26pmTriamcinolone Acetonide 55 mcg/actuation ocshmqzIxllslitdzdn506HDOYORPYFADXLDpvlcOoil 2023 11:00pm October 16, 2023 12:12pmGabapentin 600 mg cqhtjaGnjgjnngeftd676JWWEXzlwx 8 hours90 0June 2023 9:34amJuly 2023 12:14pmOxycodone-Acetaminophen 7.5-325 mg mkkzhcDstgna3MLROYNneac 8 hours as needed for painJu2023 12:11pmComplies with drug therapyOxycodone-Acetaminophen 5-325 mg abpgilTnswpreqjide3CFNIKJ4V as needed for feec8063Htrjf 2022May 2023 9:12amRadiculopathy Radiculopathy, site unspecifiedLidocaine 5 % adhesive patch,medicated Htljljuxjmjd3UJCOTPLBPWEMMeqzd as needed for crve781Wlrnz 2022 12:00amMay 2023 9:08amleave on most painful area for up to 12 hrsMethylprednisolone 4 mg tablets,dose tgkrLaypeodcohez4QP.BSBMDYL200Jwdoj 2022 12:00amMay 2023 9:09amorally per package directionsTirzepatide (Mounjaro) 5 mg/0.5 mL pen farafcgaDjirijlxwczv7VQUFSADZnpamh weekJuly 2023 11:00pmNovember 2023 9:38amFluoxetine (Prozac) 20 mg ufjpqmmUmvejignyzqz33LPTLHeturFxjc 2023 11:00pmOctober 2024 8:51amGabapentin 600 mg hjhhjqHudckzszhfjw171QGKYUjsts 8 hours as needed for restless leg(s)October 16, 2023 12:10pmDecember 2024 7:03pmAmlodipine 10 mg xhunykRtskmy57SGGAGgnmrBxcl 2023 11:00pmComplies with drug therapySacubitril-Valsartan (Entresto) 49-51 mg tabletActive0.5TABPO Twice dailyJuly 2023 12:24pmComplies with drug therapyTirzepatide (Mounjaro) 5 mg/0.5 mL pen injectorDiscontinued7.5MGSUBCUTevery weekNovember 2023 9:32amNovember 2023 9:38amFluoxetine (Prozac) 20 mg capsule Vacrqobktkpo03FVHDKpyypLykbneg 2024 8:50amDecember 2024 3:26pm Fluoxetine 40 mg ccwhsifSocdyvifmovq11WTTRMdqkuQddfiidle 2024 11:00pm March 26, 2025 3:27pmFluoxetine 40 mg jmfzhtrPzkbqo38DRTEWcldbUeouhgfb 2024 3:26pmComplies with drug therapyRopinirole 0.25 mg tabletActive0.5MG PODaily at kvcfpdz1978Egltfuw 2024 9:04amRestless legs syndrome Restless legs syndromeComplies with drug therapyAripiprazole 20 mg tablet Kqlaftihamdr86VPYLDsytoHlfbr 2023 11:00pmJuly 2023 12:13pm Pioglitazone (Actos) 45 mg botxkvEqvnmzhgxoeq16YRZXPpfcjKhsfc 2023 11:00pm February 10, 2025 8:51amAmlodipine 10 mg xhcapuSprgvftvodzq48UKUBApqcrDshgd 2023 11:00pmJune 2023 9:55amAtorvastatin 80 mg egnjlnUudsmn78BPWH DailyApril 2023 11:00pmComplies with drug therapyGabapentin 600 mg tablet Jgwrjljoltgb945WVELSbdjv 6 hoursApril 2023 11:00pmJune 2023 9:34am Lamotrigine (Lamictal) 200 mg weccgaThmmzevtxbab795PHWIHqtaqRepkk 2023 11:00pmNovember 2023 9:32amFurosemide (Lasix) 20 mg ezrshkJnzgfjadwlcp50VD PODailyApril 2023 11:00pmAugust 2024 8:42amCholecalciferol (Vitamin D3) 125 mcg (5,000 unit) qykoumcTvhitidqsulw301CVEXDOulmfZvnvz 2023 11:00pmAugust 2024 8:50amTizanidine 4 mg nckhxlSlgmzxnmqaif7SJXATqlau 8 hours as needed for muscle spasmApr2023 11:00pmOctober 2024 2:48pmCariprazine 6 mg uhtzxxfSnrrjg9SYBRKkojxFfdiu 2023 11:00pmComplies with drug therapyTirzepatide (Mounjaro) 7.5 mg/0.5 mL pen injectorActive7.5MG SUBCUTevery 2023 12:00amComplies with drug therapyRopinirole 0.25 mg tabletDiscontinued0.25MGPODaily at bedtimeJackson [facility] 2023 12:00am January 30, 2025 2:48pmIsosorbide Mononitrate 30 mg tablet extended release 24 hrActiveMGPONovephoenix indian medical center 2023 12:00amComplies with drug therapyNitroglycerin 0.4 mg tablet, sublingualActive0.4MGSUBLINGUALevery 5 to 15 minutes as needed March 12, 2024 12:00amComplies with drug therapyBenztropine 0.5 mg tablet Active0.5MGPOTwice dailyCarolinaeast Medical Center2023 12:00amComplies with drug therapy Aripiprazole 30 mg djwztnRgvrjv01RGGVVzaxgTxyompyq 2023 12:00amComplies with drug therapyCyanocobalamin (Vitamin B-12) 2,500 mcg tablet, sublingual Sqimhcuqokus9115OSMPNYWZHKAUC.q 48 hoursJackson [facility] 2023 9:47amA2024 8:43amCyanocobalamin (Vitamin B-12) 2,500 mcg tablet, sublingual Gkeltbdysljw5927SVFGDRSXIOELWTwsdyQwnfum 13th, 2025 8:41amAugu2024 8:48amCyanocobalamin (Vitamin B-12) 2,500 mcg tablet, evnnqyswlbVlqtxtsuyyva5418 MCGSUBLINGUALEvery 48 hoursAunor-[facility]2024 8:48amOctober 2024 8:51am Cholecalciferol (Vitamin D3) 125 mcg (5,000 unit) hbspfivNimdoj0422HSOWQVYmqlb November 26, 2024 8:50amComplies with drug therapyCyanocobalamin (Vitamin B-12) 2,500 mcg tablet, uegjrbyugeYquwry6311SQWJEZDDWEJPCUbrlzYbhubjk 2024 8:50amComplies with drug therapyClindamycin Hcl 300 mg bstnftbCbqsef080WCEPVsqlw times daily[facility] 2024 12:00amComplies with drug therapyCephalexin 500 mg ojkdqniRrujwk567SOGYHfonn times dailyce2024 12:00amComplies with drug therapy Immunizations Immunization Event Date Not Given Reason Dose Number Injection Molding Operator Lot Number Reason(s) Given Vaccine Information Statement (VIS) Detail Administration Location COVID-19 mRNA Comirnatjasmyn (Pfizer) August 16, 2020 COVID-19 mRNA, Comirnaty (Pfizer)September 06OVID-19 mRNA, Comirnaty ([employer]) May 17, 2021Quadrivalent InfluenzaNovember 2017Quadrivalent InfluenzaOctober 2018 Relevant Diagnostic Tests and/or Laboratory Data Laboratory Results Test Collection Date/Time Result Date/Time Result Interpretation Reference Range Result Comment Performing Site Activated Partial Thromboplast Time January 13, 2025 10:40am January 13, 2025 10:40am 27.9 sec 22.3-36.2Prothromb Time International RatioSeptember 2024 10:40amSeptember 2024 10:40am1.01DESIRED INR:2.0-3.0 CONDITIONS NOT LISTED BELOW2.5-3.5 FOR PROSTHETIC HEART VALVE REPLACEMENT2.5-3.5 RECURRENT THROMBOSISBasophils # (Auto) January 13, 2025 10:40amSeptember 2024 10:40am0.1 10 3/uL0.0-0.1Anion GapSept2024 10:40amSeptember 2024 10:40am11.7Basophils # (Auto)March 18, 2025 11:30amDecemb2024 11:30am0.1 10 3/uL0.0-0.1 Activated Partial Thromboplast TimeDece2024 11:30amDecember 2024 11:30am27.1 sec22.3-36.2Prothromb Time International RatioDece2024 11:30amDecemb2024 11:30am1.07DESIRED INR:2.0-3.0 CONDITIONS NOT LISTED BELOW2.5-3.5 FOR PROSTHETIC HEART VALVE REPLACEMENT2.5-3.5 RECURRENT THROMBOSIS Anion GapDe2024 11:30amDecemb2024 11:30am11.0Prothrombin TimeSeptember 2024 10:40amSeptember 2024 10:40am10.7 sec9.0-11.6 Basophils (%) (Auto)January 13, 2025 10:40amSeptember 2024 10:40am1.0 %0.2-2.0BUN/Creatinine RatioSeptember 2024 10:40amSeptember 2024 10:40am22.8Basophils (%) (Auto)March 18, 2025 11:30amDecember 2024 11:30am1.0 %0.2-2.0Prothrombin TimeDece2024 11:30amDecember 2024 11:30am11.2 sec9.0-11.6BUN/Creatinine RatioDecember 2024 11:30amDecember 2024 11:30am18.0Eosinophils # (Auto)January 13, 2025 10:40amSeptember 2024 10:40am0.2 10 3/uL0.0-0.7Blood Urea NitrogenSeptember 2024 10:40amSeptember 2024 10:40am28.0 mg/dLAbove high normal7.0-18.0 Eosinophils # (Auto)March 18, 2025 11:30amDecember 2024 11:30am0.1 10 3/uL0.0-0.7Blood Urea NitrogenDecember 2024 11:30amDecember 2024 11:30am22.0 mg/dLAbove high normal7.0-18.0Eosinophils (%) (Auto)January 13, 2025 10:40amSeptember 2024 10:40am3.9 %0.9-7.0Calcium LevelSeptember 2024 10:40amSeptember 2024 10:40am9.4 mg/dL8.5-10.1Eosinophils (%) (Auto) March 18, 2025 11:30amDecember 2024 11:30am2.0 %0.9-7.0Calcium Level March 18, 2025 11:30amDecember 2024 11:30am9.6 mg/dL8.5-10.1Hematocrit January 13, 2025 10:40amSeptember 2024 10:40am34.8 %Below low normal 36.0-48.0Chloride LevelSeptember 2024 10:40amSeptember 2024 10:40am 108 mmol/LAbove high -843LzeponwwhgOqwxcqtj 3rd, 2025 11:30amDecember 2024 11:30am37.4 %36.0-48.0Chloride LevelDece2024 11:30amDecemb2024 11:32fw124 mmol/LAbove high -767HnbtnnulisIyefrhzxg 2024 10:40amSeptember 2024 10:40am11.3 g/dLBelow low hgrwoz05.0-16.0Carbon Dioxide LevelSeptember 2024 10:40amSeptember 2024 10:40am27.8 mmol/L 21.0-32.0HemoglobinDece2024 11:30amDecemb2024 11:30am12.2 g/dL 12.0-16.0Carbon Dioxide LevelDece2024 11:30amDecemb2024 11:30am26.8 mmol/L21.0-32.0Immature Granulocyte # (Auto)January 13, 2025 10:40amSeptember 2024 10:40am0.01 10 3/uL0.00-0.03CreatinineSeptember 2024 10:40amSeptember 2024 10:40am1.23 mg/dLAbove high normal 0.55-1.02Immature Granulocyte # (Auto)March 18, 2025 11:30amDecemb2024 11:30am0.01 10 3/uL0.00-0.03CreatinineDece2024 11:30amDecember 2024 11:30am1.22 mg/dLAbove high normal0.55-1.02Immature Granulocyte % (Auto)January 13, 2025 10:40amSeptember 2024 10:40am0.2 %0.0-0.5 Estimated GFR ()January 13, 2025 10:40amSeptember 2024 10:62jg62Wisqk low normal>=60 mL/min/1.73m 2Immature Granulocyte % (Auto) March 18, 2025 11:30amDecember 2024 11:30am0.2 %0.0-0.5Estimated GFR ()March 18, 2025 11:30amDecember 2024 11:02lf08Qdzkm low normal>=60 mL/min/1.73m 2Lymphocytes # (Auto)January 13, 2025 10:40am January 13, 2025 10:40am1.6 10 3/uL1.2-3.8Estimated GFR (Non- AmericanSept2024 10:40amSeptember 2024 10:25hg83Ttjkw low normal>=60 mL/min/1.73m 2Lymphocytes # (Auto)March 18, 2025 11:30amDecemb2024 11:30am1.7 10 3/uL1.2-3.8Estimated GFR (Non- AmericanDece2024 11:30amDecemb2024 11:23uv46Pxloc low normal>=60 mL/min/1.73m 2 Lymphocytes (%) (Auto)January 13, 2025 10:40amSeptember 2024 10:40am 33.1 %20.5-60.0Glucose LevelSept2024 10:40amSeptember 2024 10:40am92 mg/kQ90-506Upgyyxfsvru (%) (Auto)March 18, 2025 11:30amDecember 2024 11:30am33.3 %20.5-60.0Glucose LevelDecemb2024 11:30amDecember 2024 11:30am95 mg/aG40-481Igil Corpuscular HemoglobinSeptember 2024 10:40amSeptember 2024 10:40am30.1 pg26.7-34.0Potassium LevelSeptember 2024 10:40amSeptember 2024 10:40am4.5 mmol/L3.5-5.1Mean Corpuscular HemoglobinDecemb2024 11:30amDecember 2024 11:30am29.3 pg26.7-34.0 Potassium LevelDece2024 11:30amDecemb2024 11:30am3.8 mmol/L 3.5-5.1Mean Corpuscular Hemoglobin ConcentSeptember 2024 10:40amSeptember 2024 10:40am32.5 g/dL29.9-35.2Sodium LevelSeptember 2024 10:40am January 13, 2025 10:64up799 mmol/C003-626Pjqa Corpuscular Hemoglobin Concent March 18, 2025 11:30amDecemb2024 11:30am32.6 g/dL29.9-35.2Sodium LevelDece2024 11:30amDecemb2024 11:85rv185 mmol/R747-974Yjgn Corpuscular VolumeSeptember 2024 10:40amSeptember 2024 10:40am92.8 fL81.0-99.0Mean Corpuscular VolumeDecemb2024 11:30amDecember 2024 11:30am89.9 fL81.0-99.0Monocytes # (Auto)January 13, 2025 10:40amSeptember 2024 10:40am0.3 10 3/uL0.3-0.8Monocytes # (Auto)March 18, 2025 11:30am March 18, 2025 11:30am0.3 10 3/uL0.3-0.8Monocytes (%) (Auto)January 13, 2025 10:40amSeptember 2024 10:40am6.7 %1.7-12.0Monocytes (%) (Auto) March 18, 2025 11:30amDecember 2024 11:30am5.3 %1.7-12.0Mean Platelet VolumeSept2024 10:40amSept2024 10:40am10.9 fL9.5-13.5 Mean Platelet VolumeDece2024 11:30amDecemb2024 11:30am10.6 fL 9.5-13.5Neutrophils # (Auto)January 13, 2025 10:40amSept2024 10:40am2.7 10 3/uL1.4-6.5Neutrophils # (Auto)March 18, 2025 11:30amDece2024 11:30am2.9 10 3/uL1.4-6.5Neutrophils (%) (Auto)January 13, 2025 10:40amSept2024 10:40am55.1 %43.0-75.0Neutrophils (%) (Auto)March 18, 2025 11:30amDecemb2024 11:30am58.2 %43.0-75.0Platelet Count January 13, 2025 10:40amSept2024 10:61hv243 10 3/hC312-252 Platelet CountDece2024 11:30amDecemb2024 11:97be042 10 3/uL 150-450Red Blood CountSept2024 10:40amSept2024 10:40am 3.75 10 6/uLBelow low normal4.20-5.40Red Blood CountDece2024 11:30am March 18, 2025 11:30am4.16 10 6/uLBelow low normal4.20-5.40Red Cell Distribution WidthS2024 10:40amSept2024 10:40am12.8 % 11.0-15.0Red Cell Distribution WidthDecorewell health [facility]2024 11:30amDece2024 11:30am12.7 %11.0-15.0Corrected White Blood CountSept2024 10:40am January 13, 2025 10:40am4.9 10 3/uL4.0-11.0Corrected White Blood Count March 18, 2025 11:30amDece2024 11:30am5.0 10 3/uL4.0-11.0 Vital Signs Vital Reading Result Reference Range Collection Date/Time Height 64 [in_i] February 10, 2025 8:45yhHslysq610.40 kgOctlex[facility] 2024 8:28amBody Zdbjspzuxcu20.6 [degF]97.6-99.0Octlexington [facility] 2024 8:28amHeart Rate71 /ttk52-603 February 10, 2025 8:28amRespiratory rate22 /ese49-78Bwawwsd 2024 8:28am Oxygen saturation by Pulse tjejilig84 %95-100Octlexington [facility] 2024 8:28amBP Qqapwgdx135 mm[Hg]100-140Octlexington [facility] 2024 8:28amBP Nrzfcxmbo81 mm[Hg]60-100 February 10, 2025 8:28amBMI (Body Mass Index)39.9 kg/z9Atbnild 2024 8:09dgWoxjnm54 [in_i]February 18, 2025 11:05tmDtymor702.49 kgNov2024 11:20amBody Fjiyfzpomwa10.8 [degF]97.6-99.0Nov2024 11:20amHeart Rate 70 /nib90-757Ejvbihaa 5th, 2025 11:20amOxygen saturation by Pulse hmbmanpp15 % 95-100Nov2024 11:20amBP Hipquxru349 mm[Hg]100-140Nov2024 11:20amBP Lvlylqfob98 mm[Hg]60-100Nov2024 11:20amBMI (Body Mass Index)39.5 kg/y0Juxufvyj2024 11:73chMshhmo88 [in_i]March 26, 2025 2:35ptOkqrjy953.46 kgMarch 26, 2025 2:58pmBody Dumpezpucpa20.1 [degF] 97.6-99.0March 26, 2025 2:58pmHeart Rate89 /nbt63-313IgelddbnMarch 26, 2025 2:58pmRespiratory rate20 /uof91-67NweklnncMarch 26, 2025 2:58pmOxygen saturation by Pulse elrbvmxz18 %95-100March 26, 2025 2:58pmBP Mrordjwz698 mm[Hg]100-140 March 26, 2025 2:58pmBP Ikeyrmqwu04 mm[Hg]60-100De2024 2:58pm BMI (Body Mass Index)39.9 kg/h4BnglrmkvMarch 26, 2025 2:58pm Advance Directives Advance Directive Response Recorded Date/ Time Advance Directives No March 19, 2018 4:43pm Insurance Providers Guarantor Sherly Patel [place] Address [address] [id number] Info.Home Phone: Payer Group Member ID Coverage Type Subscriber Relationship to Subscriber Effective Date Expiration Date Marshall BATISTA/LURDES Id: [id number] A [place] Id: [id number] [place] [address] Home Phone: Email: [email or web address] Encounters Encounter Location(s) Arrival/Admit Date Discharge/Departure Date Discharge/Departure Disposition Provider(s) Non-patient / Non-visit -[facility] Haritha Alejandra January 13, 2025 11:40am Elza Conway , MDDeparted Physician/Provider Office Visit-[facility] 9:08amOctober 2024 10:08amDischarged to home care or self care (routine discharge)Janene Lew NP-CDeparted Physician/Provider Office Visit-[facility] Family Medicine Timothy 2024 11:17amNovember 2024 11:44amDischarged to home care or self care (routine discharge)Janene Lew NP-CRegistered [facility] 2024 10:07Jay Alonso MDNon-patient / Gdc-lrgxv-[facility] 2024 11:30amAndrius Giedraitis , MDDeparted Physician/Provider Office Visit-[facility] Family Medicine [facility] 2024 2:35pmDecember 2024 3:37pmDischarged to home care or self care (routine discharge)Janene Lew NP-C Recent Diagnosis Onset Date Admit Date Coronary artery disease Unknown February 10, 2025 9:08am 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 Unknown February 10, 2025 9:08am Hypertension Unknown February 10 9:08am Intractable back pain Unknown February 102024 9:08am Morbid obesity Unknown February 10 9:08am RLS (restless legs syndrome) Unknown Jan 9:08am Stage 3b chronic kidney disease Unknown February 10, 2025 9:08am Chronic left shoulder pain Unknown Novem 2024 11:17am Chronic left shoulder pain Unknown Decem 2024 2:35pm Coronary artery disease Unknown March 26, 2025 2:35pm 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 Unknown March 26, 2025 2:35pm Diastolic heart failure Unknown March 26, 2025 2:35pm Hypertension Unknown March 26, 2 025 2:35pm Morbid obesity Unknown March 26, 2 025 2:35pm URIEL (obstructive sleep apnea) Unknown 2024 2:35pm Stage 3b chronic kidney disease Unknown March 26, 2025 2:35pm Assessments Diagnosis Onset Date Resolution Status Admit Date Coronary artery disease acuteOctober 2024 9:08amDiabetic nephropathy associated with type 2 diabetes mellitusacuteOctober 2024 9:08amHypertensionacuteOctober 2024 9:08amIntractable back painacuteOctober 2024 9:08amMorbid obesity acuteOctober 2024 9:08amRLS (restless legs syndrome)acuteOct2024 9:08amStage 3b chronic kidney diseaseacuteFebruary 10, 2025 9:08amChronic left shoulder painacuteFebruary 18, 2025 11:17amChronic left shoulder painacute March 26, 2025 2:35pmCoronary artery diseaseacuteMarch 26, 2025 2:35pm Diabetic nephropathy associated with type 2 diabetes mellitusacuteMarch 26, 2025 2:35pmDiastolic heart failureacuteMarch 26, 2025 2:35pmHypertension acuteMarch 26, 2025 2:35pmMorbid obesityacuteMarch 26, 2025 2:35pmOSA (obstructive sleep apnea)acuteMarch 26, 2025 2:35pmStage 3b chronic kidney diseaseacuteMarch 26, 2025 2:35pm Plan of Treatment Author [facility] HospitalAutredFebruary 10, 2025 9:06amCheck blood sugars daily, notify the office if <70 or > 200. Take medications (pills or insulin) as directed. Monitor for s/s of low blood sugar (sweaty, dizziness, nausea, vomiting, or shakiness). Watch for increase thirst, urination, and appetite as these can be signs of high blood sugar. Inspect your feet frequently monitor for open wounds, wear proper fitting shoes as well. Pt should attempt to remain as physical active as chronic conditions allow, as well as trying to follow a diet lower in crbohydrates, and simple sugars. current meds: asa, statin, actos, entresto, mounjaro a1c: 5.2% 11/03/[address] madrid Please check blood pressure daily and record DASH diet Limit caffeine Take medication as directed Contact office if chest pain, pressures, dizziness, shortness of breath, swelling in the legs Recommend slow position changes if you develop dizziness with position changes current meds: amlodipine, imdur, metoprolol, entresto continue with nephrology, meds, fluid restrictions pt with [facility]ology control BP and DM recommend diet low in fat and processed foods current meds: asa, statin, b seema, imdur, entresto had heart cath: 01/08 no stents placed, 40% blockage Discussed with patient their BMI (actual vs recommended). We have discussed lifestyle modifications: attempts to perform phsyical activity as chronic conditions allow, monitor dietary intake: increasing protein/fruits/veggies and lowering carb intake (unless contraindicated). Limit sodas, juices, sugary drinks, as well as alcohol consumption. continue with pain mgmt, had trial for spine stimulator, nicked a nerve doing it, left leg, from hip down various areas of the leg. 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 We have discussed lifestyle modifications: attempts to perform phsyical activity as chronic conditions allow, monitor dietary intake: increasing protein/fruits/veggies and lowering carb intake (unless contraindicated). Limit sodas, juices, sugary drinks, as well as alcohol consumption. continues to demonstrate weight loss with michael wt: 03/08 307, 03/09 259 Please check blood pressure daily and record DASH diet Limit caffeine Take medication as directed Contact office if chest pain, pressures, dizziness, shortness of breath, swelling in the legs Recommend slow position changes if you develop dizziness with position changes current meds: amlodipine, imdur, b seema, entresto Check blood sugars daily, notify the office if <70 or > 200. Take medications (pills or insulin) as directed. Monitor for s/s of low blood sugar (sweaty, dizziness, nausea, vomiting, or shakiness). Watch for increase thirst, urination, and appetite as these can be signs of high blood sugar. Inspect your feet frequently monitor for open wounds, wear proper fitting shoes as well. Pt should attempt to remain as physical active as chronic conditions allow, as well as trying to follow a diet lower in carbohydrates, and simple sugars. current meds: asa, statin, carol, mounjaro a1c: 5.2% 7.21.25 under the care of dr madrid Cardiology: [facility] meds: statin, asa, b seema cath: 12/08: EF 74%, LAD 50% in stent reocclusion, circumflex 50% , and RCA 30% ECHO: 05/10/23 EF 58%, bilat atrial enlargement, grade 2 diastolic dysfunction, TV/MV mild regurg, mild pulmonary HTN You have a diagnosis of URIEL it is recommended that you wear your PAP device anytime while in bed sleeping. Not using the PAP device can increase your risk of elevated or uncontrolled blood pressure, atrial fibrillation, heart attack, stroke, and sudden . Compliance with PAP:no cat ate through her mask, and they cannot get insurance to pay for a new Doctor that manages your URIEL:[facility] Future Tests Future scheduled test information is unavailable Pending Tests Test Name Ordered Date Scheduled Date MM screening mammo BI w/CAD January 27, 2025 5 :58am Future Visits Future appointment information is unavailable Future Procedures Procedure Name Ordered Date Scheduled Date AMB POC Hgb A1C February 10, 2025 5:13am Future Medications Future medication information is unavailable Patient Instructions Patient instructions are unavailable
--- OUTSIDE RECORDS SUMMARY | 2025-04-06 11:52 | XMS_ITS | Clinical Summary ---
Author Organization [facility] Address [address] [place] [address] Care Team Providers Care Chemistry Quality Control Analyst Name Role Phone Janene Lew MD Primary Care Provider [phone] Allergies Active AllergyReactionsCriticalityNoted DateCommentsCephalexinOther,RashHigh 06/27/20137354Zbrdznsvsladv23/16/2023Esomeprazole TgcotkwlhMdggt17/09/2017Omeprazole Nausea Only06/22/2016PantoprazoleNausea Only06/22/2016PenicillinsOther,RashHigh 06/27/2013Phenergan HgwvpUcmo32/03/2016 seizures QwavpygdsnwrqlvwSddslDtsl13/14/2014 seizures CbouxmrqdylsYmcch86/14/2014SulfamethoxazoleOther,IvhlOwpk31/14/2014 Sulfamethoxazole-TrimethoprimOther,DnglWty9204/03/20142928BliofzylLesiwas32/02/2024 Other Reaction(s): Unknown Reaction Medications MedicationSigDispense QuantityRefillsLast [...] mg SL tablet Indications:Coronary artery disease involving mohegan coronary artery of mohegan heart without angina pectorisPlace 1 tablet as [...] mouth once daily as directed. 90 tablet 302/082455/6Active fenofibrate (Tricor) 145 mg tablet Indications:Hyperlipidemia, unspecified hyperlipidemia typeTake 1 tablet (145 mg) by mouth in the morning. 90 tablet /077883/6Active benztropine (Cogentin) 0.5 mg tablet Take 1 tablet by mouth Twice daily at 6am and 6pm.5Active rOPINIRole (Requip) 0.25 mg tablet Take 0.25 mg by mouth at bedtime.5Active Mounjaro 7.5 mg/0.5 mL pen injector Inject 7.5 mg as directed 1 (one) time per week.5Active sacubitril-valsartan (Entresto) 49-51 mg tablet Indications:Chronic diastolic heart failure (CMS/HCC)Take 1 tablet by mouth two times daily. 180 tablet /206569/6Active atorvastatin (Lipitor) 80 mg tablet Indications:Hyperlipidemia, unspecified hyperlipidemia typeTake 1 tablet (80 mg) by mouth at bedtime. 90 tablet /598004/6Active cyanocobalamin (Vitamin B-12) 2,000 mcg tablet Take 2,000 mcg by mouth in the morning.Active metoprolol succinate XL (Toprol-XL) 25 mg 24 hr tablet Indications:PalpitationsTAKE 1/2 (ONE-HALF) TABLET BY MOUTH IN THE MORNING 45 tablet 5Active Active Problems ProblemNoted DateDiagnosed DateAbnormal cardiovascular stress test11/18/2024 Assessment & Plan (12/12/2024 8:06 AM EDT): - proceed with coronary angiogram, discussed risks including stroke, CA, . Patient agreeable to proceed. No associated orders from this encounter found during lookback period of 72 hours. Lumbar facet fweqkcvyeev81/21/2025Acute left ankle pain07/15/2024Left lower quadrant abdominal pain12/05/2023 [...] large intestine w/o perforation or abscess w/o /29/2024Acute kidney injury superimposed on CKD10/24/2023 Overview (12/11/2023): Last Assessment & Plan: Continue with Nephrology Jipfaoicyvrb73/10/7109Gpusquwlpemfd32/10/2024Iron rvxsglibpq44/10/2024Vitamin B12 kasdvgrokx99/10/2024Vitamin D nclygdmqza37/10/2024estless leg syndrome 10/23/2023 Overview (12/11/2023): Last Assessment & Plan: Continue mirapex Antibiotic-induced yeast ipblbjpnp54/19/2024ental tdvemtljy13/06/2024 Overview (12/11/2023): Last Assessment & Plan: Presents [...] improvement in her symptoms History of colon sshnfh3409/14/2023eclining functional bbsxdj6209/11/2023iabetic nephropathy associated with type 2 diabetes pjivlnmo25/28/2024Headache, tension-type09/11/2023Herniation of thoracolumbar intervertebral disc without wqaumyktdt81/28/2024History of PTCA09/11/2023Hypertensive vthuvqdzxdd82/28/2024 Localized edema09/11/2023isplacement of lumbar intervertebral disc with sizkplidvnymf18/28/1782Nlrfctcuhbfby56/28/2024Muscle spasm07/24/2023E-coli UTI 07/05/2023bdominal wall lncaxw8107/02/2023egenerative disc disease, lumbar 07/02/2023Elevated liver ieejcks5707/02/2023H/O bariatric yumogsp3407/02/2023History of ddokim4107/02/2023 Overview (09/11/2023): Last Assessment & Plan: Check urine, check labs Xpwvjqif92/18/2024Irritable bowel syndrome with aksabsnh26/18/2024Lumbar disc ftoujmtsdk43/18/5512Jhrykxupniyntlj92/18/2024olon cancer jaaqtutap22/18/2024 Encounter for screening mammogram for malignant neoplasm of yzdmzu2505/03/2023Heel pain, ngpzfafur97/18/2024 Overview (09/11/2023): Last Assessment & Plan: Would like a referral to podiatry [facility] if possible Rbfjku6404/30/20234750Olobtchmkbx45/15/2024GERD (gastroesophageal reflux disease) 04/30/2023 Overview (09/11/2023): Last Assessment & Plan: stable Jllckauztupckt26/15/2024Lower extremity edema04/30/2023 Overview (09/11/2023): Last Assessment & Plan: Minimal today, cont diuretics Check labs Microscopic thwqvlnai71/15/2024Migraine qrokkeba72/15/2024Spinal stenosis of lumbar region at multiple rfukxl7804/30/2023Spinal stenosis of thoracolumbar ritowe8204/30/2023Stage 3 chronic kidney disease due to type 2 diabetes mellitus 04/30/2023 Overview (09/11/2023): Last Assessment & Plan: Follows with Nephrology, reports she has an upcoming appt with them in the next few weeks Swelling of both lower xyycbbwcczj87/15/2024iastolic qwaivhrtysd83/29/2023 03/14/20236205Hsjvbeg66alpitations1 Cardiovascular stress test boxlasxo92/20/4502Hmiwysgxmjo47/12/2017Morbid obesity with BMI of 50.0-59.9, adultack pain12/15/2016 Overview (10/03/2022): sees pain mgmt Hip pain, rxafzssez46/01/1199Uiyypbm91/01/4173Esesjzoiy25/01/2017Diabetes ykrzpbup03/01/2017Heart bwtsasy67Seasonal mutnacbza85/01/2017 3Chronic diastolic heart swbnvvn0608/26/2015Coronary arteriosclerosis in mohegan rdgvjq6608/26/2015Morbid iytyiyy20Obstructive sleep apnea nlxbwmbu05bdominal pain, other specified site06/27/2013 Irregular bowel perjvk12hest pain06/09/2013ngina pectoris 03/22/2012Coronary smmjaabktjibroq92/07/2012ipolar ldwtasbc47/07/2012Depression 03/22/2012Essential kbpbbihnfvyl08Fibrocystic disease of wkatvy98eneralized anxiety jqvjyosd95 Khvcakqmszehum05Type 2 diabetes mellitus without complication Encounters DateTypeDepartmentCare DrolYgfyxwxdglw86/16/2025[facility] [address] [place] [id number] Tk Godoy MD Palpitationsfrom Last 3 Months [...] file06/07/2023CommentsUnknownSex and Gender InformationValueDate RecordedSex Assigned at EuntcTnylhx94/29/2025 6:54 AM EDT Legal JrjNwxduh77/29/2022 10:36 PM EDTGender FimxcxlbCnutdy95/29/2025 6:54 AM EDTSexual OrientationHeterosexual or Rnbcppjo93/29/2025 6:54 AM EDT Last Filed Vital Signs Vital SignReadingTime TakenCommentsBlood Jmjtxywz943/64012/12/2024 11:30 AM EDT Poohc475412/12/2024 11:30 AM EDTTemperature--Respiratory Cldb524512/12/2024 11:30 AM EDTOxygen Uzewlzivlw14%12/12/2024 11:30 AM EDTInhaled Oxygen Concentration-- Xaiyji957 kg (225 lb)12/12/2024 7:18 AM GLYIgvukw825.6 cm (5' 4 )12/12/2024 7:18 AM EDTBody Mass Index38.62012/12/2024 7:18 AM EDT Plan of Treatment Health MaintenanceDue DateLast DoneCommentsCT Posgedajogiu21/10/1971Diabetes: Hemoglobin A1C1970FIT-DNA1970FIT1970FOBT1970 Hsdzdxgdwvsqz47/10/1971Diabetes: Retinopathy Aggbnigqw63/10/1981Depression Fqscqtypn43/10/1983Pap Smear12/25/1991Cervical Cancer Xxwddxkkf92/10/2001 HPV/Lvrgki9012/24/20009384Sykhitpnw87/10/2011COVID-19 Vaccine ( season) , 02/09/2023, 05/16/2021, Additional history existsInfluenza Vaccine (#1), 02/09/2023, 12/19/2021, Additional history existsPneumococcal Vaccine: Pediatrics (0 to 5 Years) and At-Risk Patients (6 to 64 Years) (3 of 3 - PCV20 or PCV21)5105/10/2019, 02/16/2020, 04/16/2011, Additional history existsAdult Bqeublz74/7816Pdkambwalfa10/18/2034 11/01/2023, 07/29/2013Colorectal Cancer Rldrcboll98/18/2034Hepatitis B Vaccines Izqgodydw53/20/2023, 01/20/2022, 12/19/2021Zoster IcaysncxCgxxcjyiz83/20/2023, 12/19/2021HIB VaccinesAged OutNo longer eligible based on [...] DateEnd Date Janene Lew MD [address] [place] [address] [place] [address]/13/23
--- OUTSIDE RECORDS SUMMARY | 2025-04-06 11:52 | XMS_ITS | Clinical Summary ---
Author Organization [facility] Address [address] [place] [address] Phone Care Team Providers Care Sanitizer Name Role Phone Unavailable Primary Care Provider Unavailabl e Social History Tobacco UseTypesPacks/DayYears UsedDateSmoking Tobacco: Never Assessed CommentsUnknownSex and Gender InformationValueDate RecordedSex Assigned at Not on fileLegal QbxJjlbkl23/26/2022 8:43 AM ESTGender IdentityNot on fileSexual OrientationNot on file Plan of Treatment Not on file
--- OUTSIDE RECORDS SUMMARY | 2025-04-06 11:53 | XMS_ITS | Clinical Summary ---
Author Organization [facility] Address [address] [place] [address] Care Team Providers Care Gameplay Programmer Name Role Phone Markel Braxton MD Primary Care Provider [phone] Janene Lew NP Unavailable [phone] Allergies Active AllergyReactionsCriticalityNoted XpifPgtwplrcUyuwqpeifipuq44/11/2023 jardiance Fjbfdfjzpf62/12/2024EsomeprazoleGI fdqhkypvfki90/12/5458Qnhvvmsxugt52/12/2024 Ketmhnxokytt64/12/2024OmeprazoleGI hatnwhheeut85/12/2024ProchlorperazineUnknown High06/27/2013 Other Reaction(s): Other, Seizure seizures PantoprazoleGI yyxgelgtyix76/12/2197MlfxwvfaanewonbxXyfmNnio40/14/2014 Other Reaction(s): Other Sulfamethoxazole-WetpzrqzzekuAkttGrs51/19/2014 Other Reaction(s): other, Unknown WuodiujnTofepnq77/02/2024 Other Reaction(s): Unknown Reaction Medications MedicationSigDispense QuantityRefillsLast [...] AFTER 5 MIN. REPEAT DOSE TWICE IF TRPXJJ0412/18/2023ctive Vraylar 6 MG capsule Take 1 capsule [...] long-term current use of insulin ([facility])Checking bg levels once a day 100 strip 5Active Lancets 33G [facility] Indications:Type 2 diabetes mellitus without complication, without long-term current use of insulin ([facility])Checking bg levels once a day 100 each [...] long-term current use of insulin ([facility])USE 1 TO CHECK GLUCOSE ONCE DAILY 1 [...] 5Active Active Problems ProblemNoted DateDiagnosed DateLumbar facet ujuffpjstvx15/21/2025Encounter for wellness examination in adult09/03/2024 Assessment & Plan (09/03/2024 6:40 AM EDT): Reviewed Ht/Wt/BMI Recommend eye exam yearly Recommend dental exams twice a year Balance work/leisure activities Exercises is recommended most days of the week (appropriate as chronic conditions allow) Follow up yearly and prn Acute foot pain, left5Acute left ankle pain07/15/2024Type 2 diabetes mellitus with other circulatory ztpdrbunqgiwt89/05/2024 Assessment & Plan (06/16/2024 9:36 AM EST): [...] large intestine w/o perforation or abscess w/o xiwqcyuc33/29/2024cute kidney injury superimposed on CKD10/24/2023 Assessment & Plan (10/24/2023 11:01 AM EDT): Continue with Nephrology Gniwstebahsk75/10/9673Wlysstrszrota98/10/2024Iron mhzeugsnyc82/10/2024Vitamin B12 uamghaiwqm70/10/2024Vitamin D ldcsfuhzey47/10/2024nemia of renal disease 10/24/2023estless leg itrqlgny58/09/2024 Assessment & Plan (03/06/2024 6:41 AM EST): Continue mirapex Assessment & Plan (12/05/2023 9:11 AM EDT): Continue mirapex Assessment & Plan (10/24/2023 11:00 AM EDT): Will trial mirapex, 0.25mg Fu in 6 weeks She may want to reach out to her psych provider too to see if this is related to other meds History of colon oahjxi5409/14/2023Stage 3b chronic kidney ipnhpme2209/13/2023 Assessment & Plan (09/03/2024 6:37 AM EDT): Is established with nephrology for mgmt/monitoring Continue to keep blood pressure and DM at goal Assessment & Plan (03/06/2024 6:44 AM EST): Is established with nephrology for mgmt/monitoring Continue to keep blood pressure and DM at goal Assessment & Plan (09/13/2023 11:10 AM EDT): Continue with nephrology Displacement of lumbar intervertebral disc with vxvtthxypoyew08/28/2024 Hypertensive judixvvhbwb03/28/2024History of PTCA09/11/2023Headache, tension-type09/11/2023Muscle spasm07/24/20237720Oqvzjidx78/18/9548Tiwgisf59/18/2024 Irritable bowel syndrome with bhdwfqaf98/18/2024H/O bariatric fciigjo9007/02/2023 Abdominal wall iwybsr3307/02/20239138Wufrnjzpykswsxo46/18/2024Lumbar disc herniation 07/02/2023egenerative disc disease, rwdkae1307/02/2023Elevated liver enzymes 07/02/2023Encounter for screening mammogram for malignant neoplasm of breast 05/03/2023olon cancer eatcvfjbh20/18/2024Heel pain, kfinrdjvc93/18/2024 Assessment & Plan (05/03/2023 1:46 PM EST): Would like a referral to podiatry [facility] if possible Spinal stenosis of thoracolumbar tvltwy1404/30/2023Spinal stenosis of lumbar region at multiple qrvdel4404/30/2023 Assessment & Plan (03/06/2024 9:57 AM EST): [...] night Does have trouble longer d/t nocturia Islbtopguykg79/15/2024 Assessment & Plan (09/03/2024 6:34 AM EDT): [...] at goal, no changes in meds Coronary rqtllfiakkrdfkig59/15/7313Jvknnbrkbnt47/15/2024GERD (gastroesophageal reflux disease)04/30/2023 Assessment & Plan (09/03/2024 6:35 AM EDT): stable Assessment & Plan (05/03/2023 1:44 PM EST): stable Microscopic adfbmcayk87/15/2024Lower extremity edema04/30/2023 Assessment & Plan (03/06/2024 6:44 [...] kidney disease, without long-term current use of qodjdmn8004/30/2023 Assessment & Plan (11/03/2024 1:31 PM EDT): [...] (05/03/2023 1:45 PM EST): Check labs Seasonal sncorpqwg46/15/2024Migraine xbxocitr70/15/5601Fznnwygyzziszi44/15/2024 Lhhfseyxubhnyk27/15/2024 Assessment & Plan (09/03/2024 6:39 AM EDT): On statin therapy as well as fenofibrate Check labs yearly and prn dose changes Edcwugglgj89/15/2024 Assessment & Plan (07/02/2023 10:04 AM EDT): Continue with psych provider, discussed possibility of pt talking about Spravato to the provider asa possible consideration Chronic diastolic heart uctwoub5008/26/2015 Assessment & Plan (09/03/2024 6:37 AM EDT): [...] 8 d/t recent episode of anuria Bipolar bjuoeted79/07/2012 Assessment & Plan (03/06/2024 6:47 AM EST): Continue with psych for management of her mental health Assessment & Plan (10/24/2023 7:05 AM EDT): Continue with psych for management of her mental health Generalized anxiety goftilbj19/07/2012 Assessment & Plan (03/06/2024 6:47 AM EST): Continue with psych for management of symptoms and meds Resolved Problems ProblemNoted DateDiagnosed DateResolved DateOther intervertebral disc displacement, thoracolumbar nyvnmg10/5Acute non-recurrent obgtiphaqmca34/21/202405/ Assessment & Plan (03/06/2024 9:59 AM EST): [...] go to the ER LLQ pain/ntibiotic-induced yeast enmxrzvty22/19/2024 09/03/2024Dental gnpqvaqhe50 Assessment & Plan (09/20/2023 2:42 PM EDT): [...] Diabetic nephropathy associated with type 2 diabetes pozqxllo83/28/2024 02/19/2024eclining functional xappvu63E-coli UTI07/05/2023 09/03/2024lostridioides difficile sikbhzqm08History of anuria / Assessment & Plan (07/02/2023 10:01 AM EDT): Check urine, check labs Body mass index (BMI) 45.0-49.9, adult/08/2023Swelling of both lower yhntdcojfza40 Assessment & Plan (09/13/2023 11:11 AM EDT): [...] in carbohydrates, and simple sugars. Check labs Eitznk25/epressive cqjbekhc90 Encounters DateTypeDepartmentCare CyonHoxqxwjwzmo30/05/2025[facility] [address] [place] [phone] Jr. Altaf Santillan, DO MRI03/11/2025Telephone [facility] [address] [place] [address] Jr. Altaf Santillan, 03/04/2025 11:50 AM ESTAncillary Procedure [facility] [address] [place] [address] 03/04/2025 11:00 AM ESTOffice Visit [facility] [address] [place] [address] Jr. Altaf Santillan, DO Sprain of right rotator cuff capsule, initial encounter (Primary Dx); Acute pain of left qtxzeguv62/19/2025amboo flowsheet [facility] [address] [place] [address] Jr. Altaf Santillan, DO 03/04/20253084Lgvqns33/18/4227Kqugva13/01/2025Refill [facility] [address] [place] [address] Marya Loya DO Type 2 diabetes mellitus with other circulatory complications (HCC)from Last 3 Months Immunizations ImmunizationAdministration DatesNext DueHep A / Hep B007/03/2022,01/20/2022, 12/19/2021Influenza, Recombinant, injectable, preservative free01/24/2024 Influenza, injectable, xcwnwiccpcgl83/18/2019,03/15/2018Influenza, injectable, quadrivalent, preservative free02/09/2023,12/19/2021,03/10/2020,01/31/2019, 03/15/2018,02/03/2017Influenza, seasonal, kyrlkqhghf10/02/2020Pfizer Purple Cap SARS-CoV-2 Khgxusovvwe76/01/2022,05/16/2021,09/06/2020,08/17/2020,08/16/2020 Pneumococcal Conjugate PCV 13004/16/2011Pneumococcal Polysaccharide PPSV23 03/10/2020,02/16/2020,01/14/19975288XZBP-LLT-8 (COVID-19) vaccine, mRNA, spike protein, LNP, PF, saravanan-sucrose, 30 mcg/0.3 mL01/24/2024Tdap12/19/2021Zoster, Srqyneripmi27/20/2023,12/19/2021 Family History Medical HistoryRelationNameCommentsHeart diseaseBrotherMomHeart attackFatherDad Heart diseaseFatherDadCancerMotherMomDepressionMotherMomStrokeMotherMomVision lossMotherMomDiabetesSisterBrenHypertensionSisterBrenKidney diseaseSisterBren RelationNameStatusCommentsBrotherMomAliveFatherDadDeceased (Age 55)MotherMom (Age 73)OtherSiblingsAliveSisterBrenAlive Social History Tobacco UseTypesPacks/DayYears UsedDateSmoking Tobacco: NeverPassive Smoke Exposure: NeverSmokeless Tobacco: Never Tobacco Cessation:Counseling Given: Not Answered Alcohol UseStandard Drinks/WeekCommentsNever0 (1 standard drink = 0.6 oz pure alcohol)caffeine: coffee, soda/wzpB1184 Health LiteracyAnswerDate RecordedHow often do you need [...] relatives?Once a week11/18/2024How often do you attend roman catholic or mosque services?Never11/18/2024Do you belong to any clubs or organizations such as roman catholic groups, unions, fraternal or athletic groups, or school groups?No 11/18/2024How often do you attend meetings of the clubs or organizations you belong to?Never11/18/2024re you , , , , never , or living with a partner?Never ictdzto5511/18/2024UDIT-CAnswerDate RecordedQ1: How often do you have a [...] medical care, and heating?Hard11/18/2024PHQ-2AnswerDate RecordedPatient Health Questionnaire-2 Ctebs215[facility] - Occupational Stress QuestionnaireAnswerDate RecordedDo you feel stress - tense, restless, nervous, or anxious, or unable to sleep at night because your mind is troubled all the time - these days?To some vjlexo5611/18/2024Exercise Vital SignAnswerDate RecordedOn average, how many days [...] to sleep or slept in ashelter (including now)?Yes 05/02/2023Housing Stability Vital SignAnswerDate RecordedIn the last 12 months, was there a time when you were not able to pay the mortgage or rent on time?No 11/18/2024In the past 12 months, how many times have you moved where you were living?t any time in the past 12 months, were you homeless or living in a half-way (including now)?No11/18/2024CommentsUnknownSex and Gender InformationValueDate RecordedSex Assigned at BirthNot on fileLegal SexFemale 06/28/2022 7:05 PM EDTGender IdentityNot on fileSexual OrientationNot on file Last Filed Vital Signs Vital SignReadingTime TakenCommentsBlood Dxxhahyw618/7807 9:50 AM EDT Izccs175211/03/2024 9:50 AM XKJJolxbzogirw94.7 ??C (98 ??F)11/03/2024 9:50 AM EDT Respiratory Oqff569809/03/2024 9:40 AM EDTOxygen Yedflwoqmo80%11/03/2024 9:50 AM EDTInhaled Oxygen Concentration--Pwcbar123 kg (234 lb)11/03/2024 9:50 AM EDT Mggmoe491.2 cm (5' 7 )11/03/2024 9:50 AM EDTBody Mass Index36.65011/03/2024 9:50 AM EDT Plan of Treatment DateTypeDepartmentCare Team (Latest Contact Info)Nahrqdtuhgr99/20/2026 10:15 AM ESTOffice Visit [facility] [address] [place] [address] Marya Loya, [address] [place] [address] Health MaintenanceDue DateLast DoneCommentsCT Cokofpmpoojs73/10/1971FIT-DNA 1970FIT1970FOBT1970 7259Xlfgaartcjcdb58/10/1971HPV/Ptinab0812/24/2000 Pap Smear05/18//05/20165995Xrejrrglm66/14/202506/, 2COVID-19 Vaccine ( season), 02/09/2023, 05/17/2021, Additional history tnwsmnYnbniiewupv38/18/203407/, 11/01/2023, 07/29/2013 Colorectal Cancer Zljqeqvvz01/18/2034Pneumococcal Vaccine: Pediatrics (0 to 5 Years) and At-Risk Patients (6 to 64 Years)Aged Out03/10/2020, 02/16/2020, 04/16/2011, Additional history existsNo longer eligible based on patient's age to complete this topicInfluenza LysggdfSvgwuxekm30/09/2025, 01/24/2024, 02/09/2023, Additional history existsCervical Cancer ScreeningDiscontinued Procedures Procedure NamePriorityDate/TimeAssociated DiagnosisCommentsXR SHOULDER 2+ VIEWS SABRWytinkx51/19/2025 11:47 AM EST Acute pain of left shoulder RGORLDMIBGKYqjpnzx50/18/2024 11:19 AM EDTMM TOMOSYNTHESIS SCREENING BI09/28/2023 10:49 AM EDT from Last 3 Months or Most Recently Relevant to Health Maintenance Results * XR shoulder 2+ views left (03/04/2025 11:47 AM EST)Anatomical RegionLaterality ModalityUpper Extremities, ShoulderLeftRadiographic ImagingSpecimen (Source) Anatomical Location / LateralityCollection Method / VolumeCollection Time Received Time Narrative 03/18/2025 3:21 PM EST Imaging Result: AP, and scapular Y of left shoulder show humeral head to be well centered in the glenoid fossa without evidence of fracture or dislocation or degeneration. ??The acromioclavicular joint was on remarkable. ??Lung rousseau visualized on today's x-ray showed excellent lung markings. ??Impression no acute bony process left shoulder. Authorizing ProviderResult TypeResult StatusJr. Altaf Santillan DOIMG XR PROCEDURESFinal Result * Colonoscopy (11/01/2023 11:19 AM EDT)Anatomical RegionLateralityModality Endoscopy Narrative Authorizing ProviderResult TypeResult StatusAlracheal Ashley MDENDOSCOPY PROCEDURE ORDERABLESFinal Result * MM TOMOSYNTHESIS SCREENING BI (09/28/2023 10:49 AM EDT)Anatomical Region LateralityModalityOtherSpecimen (Source)Anatomical Location / Laterality Collection Method / VolumeCollection TimeReceived Time09/28/2023 10:49 AM EDT Narrative 09/28/2023 10:50 AM EDT [facility] ?[address] ? [place] [address] ? Mammography Report ? Signed ? Patient: SHARLENE HUMPHREYS A ?MR#: [id number] ?? : 1970 ?Acct:[id number] ?? Age/Sex: 52 / F ?ADM Date: 09/28/23 ?? Loc: MAMMO ? Attending Dr: Janene Lew PLANT PHYSIOLOGIST ? Ordering Physician: Janene Lew NP ?Results: ? Date of Service: 09/28/23 ?Follow Up: ? Procedure(s): MM tomosynthesis screening BI ?? Accession Number(s): [id number] ? cc: Janene Lew PLANT PHYSIOLOGIST ? Patient Name: ? SHARLENE HUMPHREYS ? MR#: [id number] ? : 1970 ? Exam Date: 09/28/2023 [...] at age 73. ? LOCATION: ? [facility] ? BREAST COMPOSITION: ? There are scattered [...] By: ?Jarrett Weiss M.D. ? Signed By: ?06/14/24 1050 ? DD/ 1049 ? TD/TT: ? Level Vial Grinder: Procedure Note Radiology, Radiologist, MD - 09/28/2023 [place] [address] Mammography Report Signed Patient: SHARLENE HUMPHREYS AMR#: [id number] : 1970Acct:[id number] Age/Sex: 52 / FADM Date: 09/28/23 Loc: MAMMO Attending Dr: Janene Lew PLANT PHYSIOLOGIST Ordering Physician: Janene Lewesults: Date of Service: 09/28/23Follow Up: Procedure(s): MM tomosynthesis screening BI Accession Number(s): [id number] cc: Janene Lew NP Patient Name: SHARLENE HUMPHREYS MR#: [id number] : 1970 Exam Date: 09/28/2023 Ordering Doctor: AGUSTINA Lew MACHINE DEBURRER RADIOLOGY REPORT PROCEDURE: MM TOMOSYNTHESIS SCREENING BI COMPARISON: MG MAMM SCREEN 3D ORESTES CAD, 12/30/2020. MG MAMM SCREEN 3DBIL CAD, 03/29/2022. INDICATIONS: Screening Calculator Name NCI Breast Cancer Risk Assessment Tool 5 Year Breast Cancer Risk 1.10% Lifetime Breast Cancer Risk 8.80% Personal Breast Cancer No Personal Ovarian Cancer No Treatments None Family Cancers Mother with head/neck cancer at age 73. LOCATION: [facility] BREAST COMPOSITION: There are scattered [...] M.D. Signed By:09/28/23 1050 DD/ 1049 TD/TT: Level Vial Grinder: Authorizing ProviderResult TypeResult StatusLisa [facility] NPCLINISYNC IMAGING Final Result from Last 3 Months or Most Recently Relevant to Health Maintenance Insurance Care Teams Team MemberRelationshipSpecialtyStart DateEnd Date Markel Braxton MD PCP - GeneralFamily Dlzdkiqx11/5/25 Janene Lew NP Nurse PractitionerFamily Ffjffmux36/5/25
--- OUTSIDE RECORDS SUMMARY | 2025-04-06 11:53 | XMS_ITS | Encounter Summary ---
Author Organization [facility] Address [address] [place] [address] Care Team Providers Care Recycling Operator Name Role Phone Markel Braxton MD Primary Care Provider [phone] Janene Lew NP Unavailable [phone] Reason for Visit * ReasonOnset KeqhAfvtgdzjUIK56/05/2025 Encounter Details DateTypeDepartmentCare Team (Latest Contact Info)Byvqborpxeb35/05/2025Telephone [facility] [address] [place] [address] Jr. Altaf Santillan, DO [address] [facility] [address] [place], [place] [id number] MRI Social History Tobacco UseTypesPacks/DayYears UsedDateSmoking Tobacco: NeverPassive Smoke Exposure: NeverSmokeless Tobacco: NeverAlcohol UseStandard Drinks/WeekComments Never0 (1 standard drink = 0.6 oz pure alcohol)caffeine: coffee, soda/omdJ0165 Health LiteracyAnswerDate RecordedHow often do you need [...] relatives?Once a week11/18/2024How often do you attend denominational or mormonism services?Never11/18/2024Do you belong to any clubs or organizations such as denominational groups, unions, fraBrightleaf or athletic groups, or school groups?No11/18/2024How often do you attend meetings of the clubs or organizations you belong to?Never11/18/2024re you , , , , never , or living with a partner?Never vdliqzy8211/18/2024 AUDIT-CAnswerDate RecordedQ1: How often do you have [...] care, and heating?Hard11/18/2024PHQ-2 AnswerDate RecordedPatient Health Questionnaire-2 Kipks676[facility] [place] of Occupational Health - Occupational Stress QuestionnaireAnswerDate RecordedDo you feel stress - tense, restless, nervous, or anxious, or unable to sleep at night because yourmind is troubled all the time - these days?To some drvmys1911/18/2024Exercise Vital SignAnswerDate RecordedOn average, how many days [...] steady place to sleep or slept in bronxelter (including now)?Yes05/02/2023Housing Stability Vital SignAnswerDate RecordedIn the last 12 months, was there a time when you were not able to pay the mortgage or rent on time?No11/18/2024In the past 12 months, how many times have you moved where you were living?t any time in the past 12 months, were you homeless or living in a senior care (including now)?No11/18/2024 CommentsUnknownSex and Gender InformationValueDate RecordedSex Assigned at BirthNot on fileLegal DrpHatovj09/15/2023 7:05 PM EDTGender IdentityNot on fileSexual OrientationNot on filedocumented as of this encounter Miscellaneous Notes * Telephone Encounter - JANICE Ang - 03/23/2025 8:31 AM EST [facility] [place] stating they do have the order and it is pending insurance approval. I did let the pt know and she was grateful for call. * Telephone Encounter - Dimple Beasley - 03/20/2025 10:56 AM EST Patient was seen by Dr Santillan 03/11/25 he ordered an MRI for her Left Shoulder at that visit, looks like we faxed it to [facility], but, she hasn't heard anything from them, she said that she called [facility] in [place] and they hadn't gotten the order, can we call and see or resend it to [facility], I am notsure it they can see if it went to [facility] please advise documented in this encounter Plan of Treatment DateTypeDepartmentCare Team (Latest Contact Info)Mulczcwpmgo61/20/2026 10:15 AM ESTOffice Visit [facility] [address] [place] [address] Marya Loya, [address] [place] [address] documented as of this encounter Visit Diagnoses Not on filedocumented in this encounter Additional Health Concerns AssessmentNoted TimePQ-9 Depression Total Score: 1:18 PM EST documented as of this encounter Care Teams Team MemberRelationshipSpecialtyStart DateEnd Date Markel Braxton MD PCP - GeneralFamily Mwscyyso81/5/25 Janene Lew NP Nurse PractitionerFamily Tfsudote56/5/25documented as of this encounter
--- OUTSIDE RECORDS SUMMARY | 2025-04-06 11:53 | XMS_ITS | Patient Health Record ---
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) Referral Organization [facility] Referring Provider First Name Leatha Referring Provider Last Name [facility] Referring Provider Speciality Orthopedic Surgery Referred Organization Pain clinic General Notes Nini Priest 2024 09:22:08 AM >, Nini Priest 04/29/2024 08:16:10 AM >FAXED Referral Priority Routine Problems Problem Type SNOMED Code ICD Code Onset Dates Problem Status W/U Status Risk Notes Problem Degeneration of intervertebral disc of lumbar region with discogenic back pain and lower extremity pain (M51.362)ActiveconfirmedProblemArthropathy of lumbar facet joint (056775667)Lumbar facet arthropathy (M47.816)ActiveconfirmedProblem Displacement of thoracic intervertebral disc without myelopathy (92309187)Other intervertebral disc displacement, 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)Activeconfirmed Vital Signs Height 5 ft 4 in in 04/18/2024 Yeralc430 lbs5BMI42.9104/18/2024 Encounters Encounter Location Date Provider Diagnosis [facility] Office [address] [place] [address] [address] [place] [address] 04/18/2024 Aysha Arreaga Other intervertebral disc displacement, [...] pain 2. T12-L1 HNP 3. Lumbar DDD/FA 04/18/2024Degeneration of intervertebral disc of lumbar region with discogenic back pain and lower extremity pain (ICD-10 - M51.362) 1. Chronic low back pain 2. T12-L1 HNP 3. Lumbar DDD/FA 04/18/2024Lumbar facet arthropathy (ICD-10 - M47.816) 1. Chronic low back pain 2. T12-L1 HNP 3. Lumbar DDD/FA 04/18/2024Other Plan established by Dr. Loya. Patient evaluated by myself and Dr. Loya today. Dr. Loya reviewed patient's MRI results and does not recommend any surgical intervention that he discussedwith patient. We discussed with patient that we recommend trying the spinal cord stimulator trial with pain management. We can see the patient back on an as-needed basis. The patient is very much in a greement with the treatment and/or diagnostic plan set forth and all questions were answered to thepatient's satisfaction. Thanks once again. If we can be of further service to your patients with disorders of the spine, cervical, thoracic, or lumbar, please do not hesitate to contact Dr. Loya. Best regards, 1. Chronic low back pain 2. T12-L1 HNP 3. Lumbar DDD/FA Plan Of Treatment Pending Test Test Name Order Date Lumbar spine, 4v flex ext - 44541 2024 Insurance Providers Payer Name Payer Address Payer Phone Subscriber Number Group Number Insured Name Patient Relationship to Insured Coverage Start Date Coverage End Date [employer] [address] [place] [address] [id number] ANAYA Self - patient is the insured
--- NOTE | 2025-04-06 12:32 | PM.CN ---
Consult Note: HPI Data of Consult Patient: known to practice within the last 3 years Consult date: 04/06/25 Requesting Physician: Elza Conway MD Primary Care Provider: Janene Lew NP Consult Narrative Reason for consult: low back, bilateral hip pain Narrative: 54yof who presents for assessment. notes 60-70% improvement in back pain after scs placement 2 weeks ago. incisions assessed, appear to be clean, dry, and intact. notes increasing bilateral hip pain. right hip xr with evidence of bursitis. uses percocet. cc:: CC: Elza Conway MD Review of Systems ROS Status of ROS 10 or more systems reviewed and unremarkable except as noted in history and below [facility] Medical History CAD (coronary artery disease) ?I25.10 - Atherosclerotic heart disease of [place] coronary artery without angina pectoris (ICD-10) Shoulder pain (03/2025) ?M25.519 - Pain in unspecified shoulder (ICD-10) Back pain ?M54.9 - Dorsalgia, unspecified (ICD-10) Arthritis ?M19.90 - Unspecified osteoarthritis, unspecified site (ICD-10) Diverticulosis ?K57.90 - Diverticulosis of intestine, part unspecified, without perforation or abscess without bleeding (ICD-10) Extremity edema ?R60.0 - Localized edema (ICD-10) Delayed recovery from anesthesia MRSA infection ?A49.02 - Methicillin resistant Staphylococcus aureus infection, unspecified site (ICD-10) Stage III chronic kidney disease ?N18.30 - Chronic kidney disease, stage 3 unspecified (ICD-10) Spinal stenosis of thoracolumbar region ?M48.05 - Spinal stenosis, thoracolumbar region (ICD-10) Spinal stenosis of lumbar region at multiple levels ?M48.061 - Spinal stenosis, lumbar region without neurogenic claudication (ICD-10) Seasonal allergies ?J30.2 - Other seasonal allergic rhinitis (ICD-10) RLS (restless legs syndrome) ?G25.81 - Restless legs syndrome (ICD-10) Kidney stones ?N20.0 - Calculus of kidney (ICD-10) Myalgia ?M79.10 - Myalgia, unspecified site (ICD-10) Migraine ?G43.909 - Migraine, unspecified, not intractable, without status migrainosus (ICD-10) Microscopic hematuria ?R31.29 - Other microscopic hematuria (ICD-10) Lumbar disc herniation ?M51.26 - Other intervertebral disc displacement, lumbar region (ICD-10) Lower extremity edema ?R60.0 - Localized edema (ICD-10) Irritable bowel syndrome with diarrhea ?K58.0 - Irritable bowel syndrome with diarrhea (ICD-10) Insomnia ?G47.00 - Insomnia, unspecified (ICD-10) Hypomagnesemia ?E83.42 - Hypomagnesemia (ICD-10) Hyperlipidemia ?E78.5 - Hyperlipidemia, unspecified (ICD-10) Hyperkalemia ?E87.5 - Hyperkalemia (ICD-10) GERD (gastroesophageal reflux disease) ?K21.9 - Gastro-esophageal reflux disease without esophagitis (ICD-10) Fatigue ?R53.83 - Other fatigue (ICD-10) Dyspnea ?R06.00 - Dyspnea, unspecified (ICD-10) Depression ?F32.A - Depression, unspecified (ICD-10) Lumbar degenerative disc disease ?M51.369 - Other intervertebral disc degeneration, lumbar region without mention of lumbar back pain or lower extremity pain (ICD-10) Postlaminectomy syndrome ?M96.1 - Postlaminectomy syndrome, not elsewhere classified (ICD-10) Coronary arteriosclerosis ?I25.10 - Atherosclerotic heart disease of [place] coronary artery without angina pectoris (ICD-10) C. difficile diarrhea ?A04.72 - Enterocolitis due to Clostridium difficile, not specified as recurrent (ICD-10) Bradycardia ?R00.1 - Bradycardia, unspecified (ICD-10) Anemia ?D64.9 - Anemia, unspecified (ICD-10) Abdominal hernia ?K46.9 - Unspecified abdominal hernia without obstruction or gangrene (ICD-10) Hypertension ?I10 - Essential (primary) hypertension (ICD-10) Bipolar 1 disorder ?F31.9 - Bipolar disorder, unspecified (ICD-10) Anxiety ?F41.9 - Anxiety disorder, unspecified (ICD-10) Diabetes ?E11.9 - Type 2 diabetes mellitus without complications (ICD-10) URIEL on CPAP ?G47.33 - Obstructive sleep apnea (adult) (pediatric) (ICD-10) Sleep apnea ?G47.30 - Sleep apnea, unspecified (ICD-10) High cholesterol ?E78.00 - Pure hypercholesterolemia, unspecified (ICD-10) CHF (congestive heart failure) ?I50.9 - Heart failure, unspecified (ICD-10) Surgical History History of cardiac catheterization ?Z98.890 - Other specified postprocedural states (ICD-10) S/P insertion of spinal cord stimulator (01/26/25) ?Z96.89 - Presence of other specified functional implants (ICD-10) H/O gastric bypass ?Z98.84 - Bariatric surgery status (ICD-10) S/P epidural steroid injection ?Z92.241 - Personal history of systemic steroid therapy (ICD-10) H/O colonoscopy ?Z98.890 - Other specified postprocedural states (ICD-10) H/O cervical spine surgery ?Z98.890 - Other specified postprocedural states (ICD-10) H/O bariatric surgery ?Z98.84 - Bariatric surgery status (ICD-10) History of hysterectomy ?Z90.710 - Acquired absence of both cervix and uterus (ICD-10) History of shoulder surgery ?Z98.890 - Other specified postprocedural states (ICD-10) History of neck surgery ?Z98.890 - Other specified postprocedural states (ICD-10) History of back surgery ?Z98.890 - Other specified postprocedural states (ICD-10) History of heart artery stent (~2009) ?Z95.5 - Presence of coronary angioplasty implant and graft (ICD-10) Family History Other Family history of DVT Family history of aneurysm Family history of cancer Family history of coronary artery disease Family history of diabetes mellitus Family history of heart disease Family history of hypertension Family history of myocardial infarction Family history of renal failure Family history of stroke Syncope Social History Within the past year, how often did you have a drink containing alcohol: never Score interpretation: A score less than 3 is consistent with normal alcohol consumption. Smoking status: Never smoker Non-prescribed substance use: denies use Previous occupational history: [employer] Highest level of school completed/degree received: high school graduate Little interest or pleasure in doing things: not at all Feeling down, depressed, or hopeless: not at all Meds Home Medications and Allergies Home Medications ?Medication ?Instructions ?Recorded ?Confirmed ?Type amlodipine 10 mg tablet 10 mg PO QDAY 12/18/22 03/23/25 History aspirin 81 mg chewable tablet 81 mg PO QDAY 12/18/22 03/23/25 History atorvastatin 80 mg tablet 80 mg PO QDAY 12/18/22 03/23/25 History buspirone 30 mg tablet 30 mg PO BID 12/18/22 03/23/25 History fenofibrate nanocrystallized 145 145 mg PO QDAY 12/18/22 03/23/25 History mg tablet gabapentin 600 mg tablet 600 mg PO QDAY PRN neuromuscular 12/18/22 03/23/25 History blockade isosorbide mononitrate 30 mg 30 mg PO QDAY 12/18/22 03/23/25 History tablet,extended release 24 hr metoprolol succinate 25 mg 12.5 mg PO QDAY 12/18/22 03/23/25 History tablet,extended release 24 hr sacubitril 49 mg-valsartan 51 mg 0.5 tab PO BID 12/18/22 03/23/25 History tablet (Entresto) tizanidine 4 mg tablet 4 mg PO Q8H PRN muscle spasticity 12/18/22 03/23/25 History cetirizine 10 mg tablet (Zyrtec) 10 mg PO DAILY PRN allergy symptoms 01/01/23 03/23/25 History tirzepatide 5 mg/0.5 mL 5 mg subcut QWEEK 10/01/24 03/23/25 History subcutaneous pen injector (Anabel) aripiprazole 30 mg tablet 30 mg PO DAILY 10/07/24 03/23/25 History benztropine 0.5 mg tablet 0.5 mg PO BID 10/07/24 03/23/25 History cholecalciferol (vitamin D3) 125 5,000 unit PO DAILY 10/07/24 03/23/25 History mcg (5,000 unit) capsule cyanocobalamin (vitamin B-12) 2,000 mcg sublingual DAILY 10/07/24 03/23/25 History 1,000 mcg sublingual lozenge fluoxetine 40 mg capsule 80 mg PO DAILY 10/07/24 03/23/25 History fluticasone propionate 50 2 spray intranasal Q12H 10/07/24 03/23/25 History mcg/actuation nasal spray,suspension nitroglycerin 0.4 mg sublingual 0.4 mg sublingual Q5M PRN chest 10/07/24 03/23/25 History tablet pain sennosides 8.6 mg-docusate sodium 1 tab-cap PO DAILY 10/07/24 03/23/25 History 50 mg capsule cariprazine 6 mg capsule (Vraylar) 6 mg PO QPM 01/13/25 03/23/25 History ropinirole 0.25 mg tablet 0.25 mg PO DAILY 01/13/25 03/23/25 History oxycodone-acetaminophen 7.5 mg-325 1 tab PO BID PRN pain #60 tabs 03/02/25 03/23/25 Rx mg tablet (Percocet) cephalexin 500 mg capsule 500 mg PO TID 7 days #21 caps 03/18/25 Rx clindamycin HCl 300 mg capsule 300 mg PO TID 7 days #21 caps 03/23/25 Rx oxycodone-acetaminophen 7.5 mg-325 1 tab PO QID PRN pain #21 tabs 03/23/25 Rx mg tablet (Percocet) oxycodone-acetaminophen 7.5 mg-325 1 tab PO BID PRN pain #60 tabs 04/01/25 Rx mg tablet (Percocet) Allergies Allergy/AdvReac Type Severity Reaction Status Date / Time Sulfa (Sulfonamide Allergy Mild Hives Verified 03/23/25 09:36 Antibiotics) prochlorperazine (From AdvReac Intermediate Agitated Verified 03/23/25 09:36 Compazine) promethazine (From Phenergan) AdvReac Intermediate Agitated Verified 03/23/25 09:36 sulfamethoxazole (From AdvReac Mild Hives Verified 03/23/25 09:36 Bactrim) trimethoprim (From Bactrim) AdvReac Mild Hives Verified 03/23/25 09:36 Exam Narrative Exam Narrative: Psych-alert and oriented x 3.? Attentive and appropriate, constitutionally normal, displays normal mood and affect per situation.? There are no obvious deficits in memory, reasoning, or intellect.? Skin-no obvious rashes, bruising, erythema noted to the patient's area of pain. Extremities- extremities are warm with minimal edema and palpable pulses. Hip-tenderness to palpation is noted over the bilateral hip joint.? Pain is elicited with internal and external rotation of the hip.? Hip provocative maneuvers are positive and consistent with the patient's normal pain.? Coordination remains intact.? Gait remains antalgic. Assessment and Plan Assessment and Plan (1) Bilateral hip pain: Plan 54yof who presents for assessment. reporting good relief after recent scs implantation. settings adjusted today with scs rep. endorses increasing bilateral hip pain. will obtain left hip xr and discuss at next post-scs implant follow up. she is in agreement. meds reviewed, no changes. discussed that restrictions would continue for at least 4 more weeks. follow up in 4 weeks.
== END 2025-04-06 11:49 | disposition home or self-care (01) ==
LOC: PM 11:49
PROVIDERS: PCP Nurse Practitioner; Visit Provider Anesthesiology
DX: M25.551 Pain in right hip (principal); M25.552 Pain in left hip
CPT/HCPCS: G0463